=== PATIENT | female | born 1955 ===

== ENCOUNTER 2016-04-17 22:54 | Observation (INO) | payer OTHER ==
[2016-04-17 22:54] VITALS: BMI 34.4
[2016-04-17] MEDS ORDERED: Albuterol-Ipratrop 3 mg / 0.5 (3 ml) UD INH STA ×2 (23:33→23:34)
[2016-04-17] MEDS ORDERED: Albuterol-Ipratrop 3 mg / 0.5 (3 ml) UD ONE ×2 (23:43)
[2016-04-18 00:17] LABS: BASO # 0.1 K/uL (0.0-0.2); BASO % 0.5 % (0.0-2.0); EOS # 0.2 K/uL (0.0-0.7); EOS % 1.4 % (0.0-4.0); HEMATOCRIT 37.3 % (34.0-47.0); LYMPH % 17.2 % (20.0-40.0); MEAN CELL VOLUME 77.6 fL (81.0-99.0); MEAN CORPUSCULAR HGB CONC 33.5 g/dL (33.0-37.0); MEAN PLATELET VOLUME 8.4 fL (7.2-11.7); MONO # 1.2 K/uL (0.0-0.8); MONO % 6.8 % (0.0-10.0); RED CELL DISTRIBUTION WIDTH 16.9 % (11.5-14.5); WHITE BLOOD COUNT 17.2 K/uL (4.8-10.8)
[2016-04-18 00:24] LABS: CHLORIDE 102 mmol/L (98-107)
[2016-04-18 00:25] LABS: POTASSIUM 4.5 mmol/L (3.6-5.2); SODIUM 140 mmol/L (132-148)
[2016-04-18 00:27] LABS: ALKALINE PHOSPHATASE 162 U/L (38-126); ALT/SGPT 21 U/L (9-52); AST/SGOT 16 U/L (14-36); BILIRUBIN,TOTAL 0.5 mg/dL (0.2-1.3); BLOOD UREA NITROGEN 13 mg/dL (7-17); CARBON DIOXIDE 27 mmol/L (22-30); GFR AFRICAN-AMERICAN > 60; GLUCOSE,RANDOM 324 mg/dL (65-105); TOTAL PROTEIN 7.9 g/dL (6.3-8.3)
[2016-04-18] MEDS ORDERED: Moxifloxacin IV 400mg/250ml NS 250 ML IV ONE (00:31)
[2016-04-18] MEDS ORDERED: Albuterol-Ipratrop 3 mg / 0.5 (3 ml) UD INH STA (00:48)
--- NOTE | 2016-04-18 00:48 | C.PDOC ---
History Of Present Illness 60 year old patient, with a past medical history of seizures, pneumonia, COPD/ asthma, CHF, bronchitis, and hypertension, presents to the ED complaining of cough, wheezing and shortness of breath that has been worsening over the past several days. Patient also complains of left side rib pain, and is having increased secrations from her tracheostomy site. She denies fever, abdominal pain, nausea/vomiting. Time Seen by Provider: 04/17/16 23:22 Chief Complaint (Nursing): Cough, Cold, Congestion History Per: Patient History/Exam Limitations: no limitations Onset/Duration Of Symptoms: Days (several days) Current Symptoms Are (Timing): Still Present Context: Other Severity: Moderate Radiation Of Pain To:: None Quality Of Discomfort: "Pain" Alleviating Factors: None Last Bowel Movement: Today Past Medical History Reviewed: Historical Data, Nursing Documentation, Vital Signs Vital Signs: Last Vital Signs Temp 97.8 F 04/22/16 07:35 Pulse 81 04/22/16 07:35 Resp 18 04/22/16 07:35 BP 133/81 04/22/16 09:39 Pulse Ox 95 04/22/16 07:35 - Medical History PMH: Anxiety, Asthma, Bipolar Disorder, Bronchitis, CHF, COPD, Depression, Emphysema, HTN, Pneumonia, Seizures, Sleep Apnea Surgical History: Appendectomy, Cholecystectomy - [facility] Procedures ASSISTANCE WITH RESPIRATORY VENTILATION, <24 HRS, CPAP (03/14/16) CENTRAL VENOUS CATHETER PLACEMENT WITH GUIDANCE (10/24/14) CONTINUOUS INVASIVE MECHANICAL VENTILATION <96 CONSEC HRS (03/07/14) ENTERAL INFUSION OF CONCENTRATED NUT. SUBSTANCES (09/17/12) INSERT ENDOTRACHEAL TUBE (09/17/12) INSERTION OF INFUSION DEV INTO SUP VENA CAVA, PERC APPROACH (12/03/15) INTRODUCE OF OTH THERAP SUBST INTO RESP TRACT, VIA OPENING (05/03/15) NEBULIZER THERAPY (09/17/12) RESPIRATORY VENTILATION, 24-96 CONSECUTIVE HOURS (03/14/16) Family History: States: No Known Family Hx - Social History Hx Tobacco Use: No Hx Alcohol Use: No Hx Substance Use: No - Immunization History Hx Tetanus Toxoid Vaccination: No Hx Influenza Vaccination: No Hx Pneumococcal Vaccination: No Review Of Systems Except As Marked, All Systems Reviewed And Found Negative. Constitutional: Negative for: Fever Respiratory: Positive for: Cough, Shortness of Breath, Wheezing Gastrointestinal: Negative for: Nausea, Vomiting, Abdominal Pain, Diarrhea Skin: Negative for: Rash Physical Exam - Physical Exam Appears: Well, Non-toxic, No Acute Distress Skin: Warm, Dry Head: Normacephalic Eye(s): bilateral: Normal Inspection Nose: Normal Oral Mucosa: Moist Neck: Normal ROM, Supple, Other (tracheostomy site with copious clear secretions ) Chest: Symmetrical, Tenderness (to palpation: left lateral ribs) Cardiovascular: Rhythm Regular Respiratory: No Accessory Muscle Use, No Rales, No Rhonchi, Wheezing ( expiratory bilaterally) Gastrointestinal/Abdominal: Normal Exam, Bowel Sounds, Soft, No Tenderness, No Guarding, No Rebound, Other (morbidly obese) Extremity: Normal ROM, No Pedal Edema Neurological/Psych: Oriented x3 ED Course And Treatment - Laboratory Results Result Diagrams: 04/20/16 07:06 04/20/16 07:06 ECG: Interpreted By Me, Viewed By Me (NSR 98 bpm, normal axis, no acute ST/T wave changes) O2 Sat by Pulse Oximetry: 97 (RA) Pulse Ox Interpretation: Normal - Radiology CXR: Interpreted by Me, Viewed By Me (right sided infiltrate ) Progress Note: Plan: Blood work, CXR ordered and reviewed. Patient given IV solumedrol, duoneb treatments. CXR suspicious for infiltrate - IV avelox ordered. Reevaluation Time: 00:30 Reassessment Condition: Improved (Patient reassessed, wheezing has improved but still present. Patient also continues to have significant secretions from trach site, and CXR concerning for pneumonia. Will admit patient.) - Physician Consult Information Physician Contacted: Celsa Jim Outcome Of Conversation: Discussed patient with Dr. Jim, she agrees with admission for copd exacerbation, dyspnea, possible right sided pneumonia. Medical Decision Making Medical Decision Making: differential diagnoses considered: COPD/asthma exacerbation, pneumonia, bronchitis, SD/ACS, PE, problem with trach tube, CHF exacerbation Disposition - Disposition Disposition: HOSPITALIZED Disposition Time: 00:50 Condition: STABLE - Clinical Impression Clinical Impression: COPD exacerbation, Pneumonia, Dyspnea - Scribe Statement The provider has reviewed the documentation as recorded by the Scribe Maricarmen Garcia Provider Attestation: All medical record entries made by the Scribe were at my direction and personally dictated by me. I have reviewed the chart and agree that the record accurately reflects my personal performance of the history, physical exam, medical decision making, and the department course for this patient. I have also personally directed, reviewed, and agree with the discharge instructions and disposition. Decision To Admit - Pt Status Changed To: Hospital Disposition Of: Inpatient - Admit Certification Admit to Inpatient:: After my assessment, the patient will require hospitalization for at least two midnights. This is because of the severity of symptoms shown, intensity of services needed, and/or the medical risk in this patient being treated as an outpatient. - InPatient: Physician Admission Certification:: see notes - . Bed Request Type: Telemetry Admitting Physician: Celsa Jim Patient Diagnosis: COPD exacerbation, Pneumonia, Dyspnea
[2016-04-18] MEDS ORDERED: Albuterol-Ipratrop 3 mg / 0.5 (3 ml) UD INH PRN (00:55)
[2016-04-18] MEDS ORDERED: Moxifloxacin IV 400mg/250ml NS 250 ML IVPB ONE (00:55)
[2016-04-18] MEDS ORDERED: Albuterol-Ipratrop 3 mg / 0.5 (3 ml) UD ONE (01:00)
[2016-04-18] MEDS ORDERED: guaiFENesin-Codeine 100-10mg/5ml Syrup (10ml) UD PO ONE (08:23)
--- NOTE | 2016-04-18 08:26 | RAD ---
PROCEDURE: CHEST RADIOGRAPH, 1 VIEW HISTORY: INCREASE IN SECRETIONS, R/O PNA COMPARISON: 03/14/2016 FINDINGS: LUNGS: Diffuse prominent increased interstitial lung markings bilaterally suggestive for moderate venous congestion and/or diffuse interstitial infiltrate. Opacity projects over the right lung base, possibly external. Clinical correlation. Biapical pleural thickening with upper lobe granulomatous changes. PLEURA: As above. CARDIOVASCULAR: Cardiomegaly. OSSEOUS STRUCTURES: No significant abnormalities. VISUALIZED UPPER ABDOMEN: Normal. OTHER FINDINGS: None. IMPRESSION: Diffuse prominent increased interstitial lung markings bilaterally suggestive for moderate venous congestion and/or diffuse interstitial infiltrate. Opacity projects over the right lung base, possibly external. Clinical correlation. Biapical pleural thickening with upper lobe granulomatous changes.
[2016-04-18] MEDS: Enoxaparin 40 mg Syringe SC SCH (09:42)
[2016-04-18] MEDS: MethylPREDNISolone 40 mg Vial IVP SCH ×2 (10:37→22:30)
[2016-04-18] MEDS: guaiFENesin-Codeine 100-10mg/5ml Syrup (10ml) UD PO SCH ×3 (10:37→18:51)
[2016-04-18] MEDS: Azithromycin 500 MG in Sodium Chloride 0.9% 250 ML IVPB SCH (12:06)
[2016-04-18] MEDS: (Novolin R) Insulin Human Regular 100 units/ml vial SC SCH ×3 (12:07→22:31)
--- NOTE | 2016-04-18 13:38 | CP.PCM.CON ---
History of Present Illness - History of Present Illness History of Present Illness: 60 year old female with PMHx of emphysema, COPD, CHF, bronchitis, asthma, and hypertension, presents with complaint of SOB. Patient complains of increased secretions, cough, SOB, chills, fever, pain, chest pain, and palpitations. Patient reports she presented to [facility] a week ago and was discharged Sunday without complications. Patient reports she had still not resolved her symptoms, and felt a choking sensation with increased secretions in her trach. Patient is visibly dyspneic. PMHx - see above Review of Systems - Constitutional Constitutional: Chills, Fatigue, Fever - EENT Eyes: Blurred Vision - Cardiovascular Cardiovascular: Chest Pain, Palpitations - Respiratory Respiratory: Cough, Dyspnea, Wheezing - Gastrointestinal Gastrointestinal: Nausea. absent: Diarrhea, Vomiting Past Patient History - Infectious Disease Hx of Infectious Diseases: None - Tetanus Immunizations Tetanus Immunization: Unknown - Past Medical History & Family History Past Medical History?: Yes - Past Social History Smoking Status: Never Smoked - CARDIAC Hx Cardiac Disorders: Yes Hx Congestive Heart Failure: Yes Hx Hypertension: Yes - PULMONARY Hx Respiratory Disorders: Yes Hx Asthma: Yes Hx Bronchitis: Yes Hx Chronic Obstructive Pulmonary Disease (COPD): Yes Hx Emphysema: Yes Hx Pneumonia: Yes Hx Sleep Apnea: Yes - NEUROLOGICAL Hx Neurological Disorder: Yes Hx Seizures: Yes - HEENT Hx HEENT Problems: Yes Hx Cataracts: Yes - RENAL Hx Chronic Kidney Disease: No - ENDOCRINE/METABOLIC Hx Endocrine Disorders: No Hx Hypothyroidism: No - HEMATOLOGICAL/ONCOLOGICAL Hx Blood Disorders: No Hx Human Immunodeficiency Virus (HIV): No - INTEGUMENTARY Hx Dermatological Problems: No - MUSCULOSKELETAL/RHEUMATOLOGICAL Hx Musculoskeletal Disorders: No Hx Falls: No - GASTROINTESTINAL Hx Gastrointestinal Disorders: Yes Other/Comment: cholecystectomy - GENITOURINARY/GYNECOLOGICAL Hx Genitourinary Disorders: No Hx Sexually Transmitted Disorders: No - PSYCHIATRIC Hx Psychophysiologic Disorder: Yes Hx Depression: Yes Hx Substance Use: No - SURGICAL HISTORY Hx Surgeries: Yes Hx Appendectomy: Yes Hx Cholecystectomy: Yes Hx Hysterectomy: Yes - ANESTHESIA Hx Anesthesia: Yes Hx Anesthesia Reactions: No Hx Malignant Hyperthermia: No Meds Allergies/Adverse Reactions: Allergies Allergy/AdvReac Type Severity Reaction Status Date / Time aspirin Allergy ANAPHYLAXIS Verified 04/17/16 23:06 ceftriaxone sodium Allergy ANAPHYLAXIS Verified 04/17/16 23:06 [From Rocephin] ibuprofen [From Motrin] Allergy ANAPHYLAXIS Verified 04/17/16 23:06 iodine Allergy ANAPHYLAXIS Verified 04/17/16 23:06 raspberry Allergy ANAPHYLAXIS Verified 04/17/16 23:06 - Medications Medications: Current Medications Albuterol/Ipratropium (Duoneb 3 Mg/0.5 Mg (3 Ml) Ud) 3 ml INH RQ2 PRN PRN Reason: wheezing, sob Last Admin: 04/18/16 09:00 Dose: 3 ml Albuterol/Ipratropium (Duoneb 3 Mg/0.5 Mg (3 Ml) Ud) 3 ml INH RQ6 [facility] Stop: 04/19/16 02:01 Enoxaparin Sodium (Lovenox) 40 mg SC DAILY [facility] Last Admin: 04/18/16 09:42 Dose: 40 mg Famotidine (Pepcid) 40 mg PO DAILY [facility] Last Admin: 04/18/16 10:32 Dose: 40 mg Furosemide (Lasix) 40 mg PO DAILY [facility] Last Admin: 04/18/16 10:33 Dose: 40 mg Guaifenesin/Codeine Phosphate (Guaifenesin/Codeine) 5 ml PO TID [facility] Last Admin: 04/18/16 13:37 Dose: 5 ml Azithromycin 500 mg/ Sodium (Chloride) 250 mls @ 250 mls/hr IVPB Q24H [facility] Last Admin: 04/18/16 12:06 Dose: 250 mls/hr Ceftriaxone Sodium 1 gm/ (Sodium Chloride) 100 mls @ 100 mls/hr IVPB DAILY [facility] Insulin Glargine (Lantus) 50 unit SC HS [facility] Insulin Human Regular (Novolin R) 0 unit SC ACHS [facility] PRN Reason: Protocol Last Admin: 04/18/16 12:07 Dose: 5 unit Methylprednisolone (Solu-Medrol) 40 mg IVP Q12 [facility] Last Admin: 04/18/16 10:37 Dose: 40 mg Quetiapine Fumarate (Seroquel) 400 mg PO BID [facility] Last Admin: 04/18/16 10:38 Dose: 400 mg Fluticasone/Salmeterol (Advair Diskus 500/50) 1 puff INH RQ12 [facility] Sertraline HCl (Zoloft) 100 mg PO BID [facility] Last Admin: 04/18/16 10:38 Dose: 100 mg Tramadol HCl (Ultram) 50 mg PO TID [facility] Last Admin: 04/18/16 13:33 Dose: 50 mg Physical Exam - Constitutional Appears: No Acute Distress - Head Exam Head Exam: ATRAUMATIC, NORMOCEPHALIC - Eye Exam Eye Exam: Normal appearance - Respiratory Exam Respiratory Exam: Accessory Muscle Use, Rhonchi, Wheezes - Cardiovascular Exam Cardiovascular Exam: +S1, +S2 - Neurological Exam Neurological exam: Alert - Psychiatric Exam Psychiatric exam: Depressed, Normal Affect Results - Vital Signs Recent Vital Signs: Last Vital Signs Temp 98.1 F 04/18/16 07:10 Pulse 91 H 04/18/16 08:00 Resp 20 04/18/16 07:10 BP 135/72 04/18/16 10:33 Pulse Ox 97 04/18/16 07:10 - Labs Result Diagrams: 04/17/16 23:59 04/17/16 23:59 Labs: Laboratory Results - last 24 hr 04/18/16 11:22 POC Glucose (mg/dL) 377 H Assessment & Plan (1) COPD exacerbation Assessment and Plan: Continue nebs, steroids F/u X-ray to track improvement Status: Acute
[2016-04-18] MEDS: Albuterol-Ipratrop 3 mg / 0.5 (3 ml) UD INH SCH ×2 (14:20→19:52)
[2016-04-18] MEDS ORDERED: (Lantus) Insulin Glargine, Recombinant SC SCH (22:00)
[2016-04-19] MEDS: Albuterol-Ipratrop 3 mg / 0.5 (3 ml) UD INH SCH (01:15)
[2016-04-19] MEDS ORDERED: (Novolog) Insulin Aspart, Recombinant 100 u/ml 10 ml vial SC STA (02:56)
[2016-04-19] MEDS ORDERED: (Novolin R) Insulin Human Regular 100 units/ml vial IV ONE (03:21)
[2016-04-19] MEDS ORDERED: (Novolin R) Insulin Human Regular 100 units/ml vial SC ONE (03:29)
[2016-04-19] MEDS: (Novolin R) Insulin Human Regular 100 units/ml vial SC SCH ×4 (07:49→21:49)
--- NOTE | 2016-04-19 09:25 | HP ---
CHIEF COMPLAINT: Coughing, shortness of breath. HISTORY OF PRESENT ILLNESS: The patient is a 60-year-old lady, new for me with past medical history of emphysema, pneumonia, COPD, congestive heart failure, bronchitis, asthma, hypertension, has trach. Came to the Emergency Room complaining of cough, wheezing and shortness of breath that has been wor se for the past several days. The patient also complaining of left-sided rib pain and has a large am ount of secretions from the trach. The patient denies fever, vomiting, chills, diarrhea. PAST MEDICAL HISTORY: Anxiety, asthma, bipolar, bronchitis, congestive heart failure, COPD, depressi on, emphysema, hypertension, pneumonia, seizures, sleep apnea. PAST SURGICAL HISTORY: Appendectomy, cholecystectomy. FAMILY HISTORY: Unknown. SOCIAL HISTORY: History of tobacco use, no alcohol use, no substance abuse. ALLERGIES: THE PATIENT IS ALLERGIC WITH ASPIRIN, CEFTRIAXONE, IBUPROFEN, IODINE, RASPBERRY. HOME MEDICATIONS: Reviewed by me. REVIEW OF SYSTEMS: The patient seen and examined on the bedside in her room, looks comfortable. Cou gh is a little bit better. Shortness of breath is a little bit better and was breathing with her tra ch tube, getting constant oxygen. No headache, no fever, no chills, no hematuria, no hematochezia. PHYSICAL EXAMINATION: VITAL SIGNS: Temperature 98.2, pulse 97, blood pressure 133/64, respiratory rate 20. HEENT: Head normocephalic and atraumatic. Eyes: PERRLA. Extraocular muscles intact. Conjunctivae clear. Eyelids unremarkable. Nose patent. Mucous membranes moist. NECK: Has trach, through which patient is getting oxygen. No thyromegaly, no JVD. LUNGS: Wheezing bilaterally mildly. HEART: S1, S2 positive. ABDOMEN: Soft. Bowel sounds positive. No organomegaly. EXTREMITIES: No edema, no cyanosis. NEUROLOGIC: The patient is awake, alert, moving all 4 extremities. No focal deficits. LABORATORIES: White blood cells 17.2, hemoglobin 12.5, hematocrit 37.5, platelets 171. Sodium 140, potassium 4.5, BUN 13, creatinine 0.9. Glucose 377, 378. Alkaline phosphatase 154. Influenza type A and B is negative. ASSESSMENT AND PLAN: The patient is a 60-year-old lady with leukocytosis, hyperglycemia, history of chronic obstructive pulmonary disease, asthma, emphysema, seizures, obesity, congestive heart failure , bronchitis, hypertension. Seen by the grad intern, Dr. Rodo Rosado. Uncontrolled diabetes yeison litus, has chronic obstructive pulmonary disease exacerbation. Continue nebulizer, steroids. Follow up x-ray to track improvement. Discussion done with patient. Giving nebulizer treatment. Gastroint estinal and deep venous thrombosis prophylaxis. Repeat labs. We will follow up. Celsa Jim MD cc: [id number] TT: 04/19/2016 09:25:06 en
[2016-04-19] MEDS: Enoxaparin 40 mg Syringe SC SCH (09:27)
[2016-04-19] MEDS: MethylPREDNISolone 40 mg Vial IVP SCH ×2 (09:28→21:47)
[2016-04-19] MEDS: guaiFENesin-Codeine 100-10mg/5ml Syrup (10ml) UD PO SCH ×3 (09:28→18:31)
[2016-04-19] MEDS: Oxycodone/Acetaminophen 5/325 mg Tab PO PRN ×2 (09:29→16:06)
--- NOTE | 2016-04-19 10:13 | PCM.PSYCH ---
Initial Psychiatric Evaluation - Initial Psychiatric Evaluation Type of Admission: Voluntary Legal Status: Capacity History of Present Illness and Precipitating Events: Pt is a 60 year old female, , has three children, unemployed, currently living with her daughter in an apartment. Pt has an extensive medical psychiatric history who was admitted for fever and worsening shortness of breath. Pt has multiple medical problems including asthma, CHF, COPD, HTN, seizures, sleep apnea, and trach for breathing after multiple intubations. Pt has a psychiatric history of schizophrenia, bipolar disorder, depression, and anxiety with around 10 psychiatric admission. Pt was admitted for SOB and fever. Pt also reports feeling "bad," specifically depressed and anxious, because she has a tracheotomy tube and her health is poor. She is constantly concerned and worried about what other people think of her when they see her with the breathing tube. She also believes that people think they will get ill by being around her. Pt is very frustrated by her illnesses because she cannot do the things she used to and need helps with ADLs. Pt states she feel helpless, hopeless, worthless, and a burden to her family. Pt reports suicidal ideation without a plan and has had suicide attempts in the past, once by attempting to overdose on a pill cocktail. Pt reports hearing multiple voices telling her " you are bad," "you are a problem," you make your daughter sad," "it's better to ." Pt occasionally hears music she listen too from 20 years ago. Pt also reports visual hallucinations of shadows in her house and persecutory delusions of the doctors and nurses wanting to kill her; this makes her anxious. She also hears the nurses call her "Mrs. Bhakta." Pt reports poor sleep, good appetie, decreased energy, poor concentration, psychomotor retardation, and guilt over being such a burden to her family. Social: Tobacco - denies; ETOH - denies, Drugs- denies; lives at home with daughter Psych Hx: multiple suicide attempts, schizophrenia, bipolar, Family psych Hx: Oldest daughter - Bipolar Family subsance use - oldest daughter hx of snorting unknown drugs (now clean) PMHx: as above Psych meds: Trazodone, Seroquel, Lamictal, Ativan Current Medications: Active Medications Generic Name Dose Route Start Last Admin Trade Name Freq PRN Reason Stop Dose Admin Albuterol/Ipratropium 3 ml 04/18/16 16:35 Duoneb 3 Mg/0.5 Mg (3 Ml) Ud INH RQ4 PRN wheezing, sob Enoxaparin Sodium 40 mg 04/18/16 10:00 04/19/16 09:27 Lovenox SC 40 mg DAILY [facility] Administration Famotidine 40 mg 04/18/16 10:00 04/19/16 09:28 Pepcid PO 40 mg DAILY [facility] Administration Furosemide 40 mg 04/18/16 10:00 04/19/16 09:32 Lasix PO 40 mg DAILY [facility] Administration Guaifenesin/Codeine Phosphate 5 ml 04/18/16 10:00 04/19/16 09:28 Guaifenesin/Codeine PO 5 ml TID [facility] Administration Azithromycin 500 mg/ Sodium 250 mls @ 250 mls/hr 04/18/16 11:00 04/18/16 12:06 Chloride IVPB 250 mls/hr Q24H [facility] Administration Insulin Glargine 17 unit 04/20/16 10:00 Lantus SC DAILY [facility] Insulin Glargine 30 unit 04/19/16 22:00 Lantus SC HS [facility] Insulin Human Regular 0 unit 04/18/16 11:30 04/19/16 07:49 Novolin R SC 5 unit ACHS [facility] Administration Protocol Methylprednisolone 40 mg 04/18/16 10:00 04/19/16 09:28 Solu-Medrol IVP 40 mg Q12 [facility] Administration Oxycodone/Acetaminophen 1 tab 04/19/16 08:21 04/19/16 09:29 Percocet 5/325 Mg Tab PO 04/22/16 08:22 1 tab BID PRN Administration pain Quetiapine Fumarate 400 mg 04/18/16 10:00 04/19/16 09:29 Seroquel PO 400 mg BID [facility] Administration Fluticasone/Salmeterol 1 puff 04/18/16 20:00 Advair Diskus 500/50 INH RQ12 [facility] Sertraline HCl 100 mg 04/18/16 10:00 04/19/16 09:28 Zoloft PO 100 mg BID [facility] Administration Past Psychiatric History - Past Psychiatric History Previous Treatment History: Inpatient Pertinent Medical Hx (Current Medical&Sleep Prob, Allergies): Allergies Allergy/AdvReac Type Severity Reaction Status Date / Time aspirin Allergy ANAPHYLAXIS Verified 04/17/16 23:06 ceftriaxone sodium Allergy ANAPHYLAXIS Verified 04/17/16 23:06 [From Rocephin] ibuprofen [From Motrin] Allergy ANAPHYLAXIS Verified 04/17/16 23:06 iodine Allergy ANAPHYLAXIS Verified 04/17/16 23:06 raspberry Allergy ANAPHYLAXIS Verified 04/17/16 23:06 Insulin Aspart, Recombinant [Novolog] 9 unit SC TIDAC 30 Days 03/19/16 QUEtiapine [SEROquel] 400 mg PO BID tab 03/19/16 Sertraline [Zoloft] 100 mg PO BID tab 03/19/16 Budesonide [Pulmicort Respules] 0.5 mg IH Q12 04/18/16 Gabapentin [Neurontin] 800 mg PO TID 04/18/16 Insulin Glargine, Recombina [Lantus] 17 unit SC ACB 04/18/16 Insulin Glargine, Recombina [Lantus] 30 unit SC HS 04/18/16 Ipratropium 0.02% [Ipratropium [place] 2.5 Ml] 0.5 mg IH Q4 PRN 04/18/16 lamoTRIgine [LaMICtal] 100 mg PO BID 04/18/16 Review of Systems - Review of Systems All systems: reviewed and no additional remarkable complaints except
--- NOTE | 2016-04-19 10:34 | CP.PCM.PN ---
Subjective - Date & Time of Evaluation Date of Evaluation: 04/19/16 Time of Evaluation: 09:00 - Subjective Subjective: Patient is seen and examined. Patient reports she had an inability to sleep at night due to pain and cough. Patient appears visibly dyspneic and in respiratory distress. Patient reports cough, SOB, increased secretions, chest pain, back pain, palpitations, diaphoresis, chills, headache, itchy eyes, and nausea. She reports her pain is uncontrolled. Objective - Vital Signs/Intake and Output Vital Signs (last 24 hours): Temp Pulse Resp BP Pulse Ox 98.5 F 79 18 114/69 95 04/19/16 07:20 04/19/16 08:00 04/19/16 07:20 04/19/16 09:32 04/19/16 07:20 Intake and Output: 04/19/16 04/19/16 06:59 18:59 Intake Total 120 Balance 120 - Medications Medications: Current Medications Albuterol/Ipratropium (Duoneb 3 Mg/0.5 Mg (3 Ml) Ud) 3 ml INH RQ4 PRN PRN Reason: wheezing, sob Enoxaparin Sodium (Lovenox) 40 mg SC DAILY [facility] Last Admin: 04/19/16 09:27 Dose: 40 mg Famotidine (Pepcid) 40 mg PO DAILY [facility] Last Admin: 04/19/16 09:28 Dose: 40 mg Furosemide (Lasix) 40 mg PO DAILY [facility] Last Admin: 04/19/16 09:32 Dose: 40 mg Guaifenesin/Codeine Phosphate (Guaifenesin/Codeine) 5 ml PO TID [facility] Last Admin: 04/19/16 09:28 Dose: 5 ml Azithromycin 500 mg/ Sodium (Chloride) 250 mls @ 250 mls/hr IVPB Q24H [facility] Last Admin: 04/18/16 12:06 Dose: 250 mls/hr Insulin Glargine (Lantus) 17 unit SC DAILY [facility] Insulin Glargine (Lantus) 30 unit SC HS [facility] Insulin Human Regular (Novolin R) 0 unit SC ACHS [facility] PRN Reason: Protocol Last Admin: 04/19/16 07:49 Dose: 5 unit Methylprednisolone (Solu-Medrol) 40 mg IVP Q12 [facility] Last Admin: 04/19/16 09:28 Dose: 40 mg Oxycodone/Acetaminophen (Percocet 5/325 Mg Tab) 1 tab PO BID PRN PRN Reason: pain Stop: 04/22/16 08:22 Last Admin: 04/19/16 09:29 Dose: 1 tab Quetiapine Fumarate (Seroquel) 400 mg PO BID [facility] Last Admin: 04/19/16 09:29 Dose: 400 mg Fluticasone/Salmeterol (Advair Diskus 500/50) 1 puff INH RQ12 [facility] Sertraline HCl (Zoloft) 100 mg PO BID [facility] Last Admin: 04/19/16 09:28 Dose: 100 mg - Constitutional Appears: Chronically Ill - Head Exam Head Exam: ATRAUMATIC, NORMOCEPHALIC - Eye Exam Eye Exam: Normal appearance - Respiratory Exam Respiratory Exam: Rhonchi (diffuse rhonchi), Wheezes - Cardiovascular Exam Cardiovascular Exam: +S1, +S2 - Neurological Exam Neurological Exam: Alert, Awake - Psychiatric Exam Psychiatric exam: Anxious, Depressed Assessment and Plan (1) COPD exacerbation Assessment & Plan: Continue Abx, bronchodilators, steroids, oxygen therapy Consider addition of mucolytic to aid in secretion removal Status: Acute
[2016-04-19] MEDS: Azithromycin 500 MG in Sodium Chloride 0.9% 250 ML IVPB SCH (11:00)
--- NOTE | 2016-04-19 13:59 | PCM.PSYCH ---
Initial Psychiatric Evaluation - Initial Psychiatric Evaluation Type of Admission: Voluntary Legal Status: Capacity Chief Complaint (in patient's own words): "I am depressed and anxious." History of Present Illness and Precipitating Events: Pt is a 60 year old female, , has three children, unemployed, currently living with her daughter in an apartment. Pt has an extensive medical psychiatric history who was admitted for fever and worsening shortness of breath. Pt has multiple medical problems including asthma, CHF, COPD, HTN, seizures, sleep apnea, and trach for breathing after multiple intubations. Pt has a psychiatric history of schizophrenia, bipolar disorder, depression, and anxiety with around 10 psychiatric admission. Pt was admitted for SOB and fever. Pt also reports feeling "bad," specifically depressed and anxious, because she has a trach and her health is poor. She is constantly concerned and worried about what other people think of her when they see her with the breathing tube. She also believes that people think they will get ill by being around her. Pt is very frustrated by her illnesses because she cannot do the things she used to and need helps with ADLs. Pt states she feel helpless, hopeless, worthless, and a burden to her family. Pt reports suicidal ideation without a plan and has had suicide attempts in the past, once by attempting to overdose on a pill cocktail. Pt reports hearing multiple voices telling her "you are bad," "you are a problem," you make your daughter sad," "it's better to ." Pt occasionally hears music she listen too from 20 years ago. Pt also reports visual hallucinations of shadows in her house and persecutory delusions of the doctors and nurses wanting to kill her; this makes her anxious. She also hears the nurses call her "Mrs. Bhakta." Pt reports poor sleep, good appetie, decreased energy, poor concentration, psychomotor retardation, and guilt over being such a burden to her family. Social: Tobacco - denies; ETOH - denies, Drugs- denies; lives at home with daughter Psych Hx: multiple suicide attempts, schizophrenia, bipolar, depression, anxiety Family psych Hx: Oldest daughter - Bipolar Family subsance use - oldest daughter hx of snorting unknown drugs (now clean) PMHx: as above Psych meds: Trazodone, Seroquel, Lamictal, Ativan Current Medications: Active Medications Generic Name Dose Route Start Last Admin Trade Name Freq PRN Reason Stop Dose Admin Albuterol/Ipratropium 3 ml 04/18/16 16:35 Duoneb 3 Mg/0.5 Mg (3 Ml) Ud INH RQ4 PRN wheezing, sob Enoxaparin Sodium 40 mg 04/18/16 10:00 04/19/16 09:27 Lovenox SC 40 mg DAILY [facility] Administration Famotidine 40 mg 04/18/16 10:00 04/19/16 09:28 Pepcid PO 40 mg DAILY [facility] Administration Furosemide 40 mg 04/18/16 10:00 04/19/16 09:32 Lasix PO 40 mg DAILY [facility] Administration Guaifenesin/Codeine Phosphate 5 ml 04/18/16 10:00 04/19/16 13:33 Guaifenesin/Codeine PO 5 ml TID [facility] Administration Azithromycin 500 mg/ Sodium 250 mls @ 250 mls/hr 04/18/16 11:00 04/19/16 11:00 Chloride IVPB 250 mls/hr Q24H [facility] Administration Insulin Glargine 17 unit 04/20/16 10:00 Lantus SC DAILY [facility] Insulin Glargine 30 unit 04/19/16 22:00 Lantus SC HS [facility] Insulin Human Regular 0 unit 04/18/16 11:30 04/19/16 12:10 Novolin R SC 4 unit ACHS [facility] Administration Protocol Methylprednisolone 40 mg 04/18/16 10:00 04/19/16 09:28 Solu-Medrol IVP 40 mg Q12 [facility] Administration Oxycodone/Acetaminophen 1 tab 04/19/16 08:21 04/19/16 09:29 Percocet 5/325 Mg Tab PO 04/22/16 08:22 1 tab BID PRN Administration pain Quetiapine Fumarate 400 mg 04/18/16 10:00 04/19/16 09:29 Seroquel PO 400 mg BID [facility] Administration Fluticasone/Salmeterol 1 puff 04/18/16 20:00 Advair Diskus 500/50 INH RQ12 [facility] Sertraline HCl 100 mg 04/18/16 10:00 04/19/16 09:28 Zoloft PO 100 mg BID [facility] Administration Past Psychiatric History - Past Psychiatric History Pertinent Medical Hx (Current Medical&Sleep Prob, Allergies): Allergies Allergy/AdvReac Type Severity Reaction Status Date / Time aspirin Allergy ANAPHYLAXIS Verified 04/17/16 23:06 ceftriaxone sodium Allergy ANAPHYLAXIS Verified 04/17/16 23:06 [From Rocephin] ibuprofen [From Motrin] Allergy ANAPHYLAXIS Verified 04/17/16 23:06 iodine Allergy ANAPHYLAXIS Verified 04/17/16 23:06 raspberry Allergy ANAPHYLAXIS Verified 04/17/16 23:06 Insulin Aspart, Recombinant [Novolog] 9 unit SC TIDAC 30 Days 03/19/16 QUEtiapine [SEROquel] 400 mg PO BID tab 03/19/16 Sertraline [Zoloft] 100 mg PO BID tab 03/19/16 Budesonide [Pulmicort Respules] 0.5 mg IH Q12 04/18/16 Gabapentin [Neurontin] 800 mg PO TID 04/18/16 Insulin Glargine, Recombina [Lantus] 17 unit SC ACB 04/18/16 Insulin Glargine, Recombina [Lantus] 30 unit SC HS 04/18/16 Ipratropium 0.02% [Ipratropium [place] 2.5 Ml] 0.5 mg IH Q4 PRN 04/18/16 lamoTRIgine [LaMICtal] 100 mg PO BID 04/18/16 Review of Systems - Review of Systems All systems: reviewed and no additional remarkable complaints except - Respiratory Respiratory: Dyspnea - Neurological Neurological: Headaches. absent: Dizziness, Paresthesias - Psychiatric Psychiatric: Abnormal Sleep Pattern, Anhedonia, Anxiety, Auditory Hallucinations , Depression, Difficulty Concentrating, Hallucinations, Hopelessness, Panic Attacks, Paranoia, Suicidal Ideation, Visual Hallucinations. absent: Behavioral Changes, Change in Appetite, Confusion, Homicidal Ideation, Irritability, Memory Loss, Mood Swings, Tactile Hallucinations Mental Status Examination - Personal Presentation Personal Presentation: Looks stated age - Affect Affect: Blunted, Depressed - Motor Activity Motor Activity: Psychomotor Retardation - Reliability in Providing Information Reliability in Providing Information: Fair - Speech Speech: Organized, Coherent Additional comments: pt has difficulty speaking due to tracheal breathing tube - Mood Mood: Depressed - Formal Thought Process Formal Thought Process: Hallucinations, Delusions, Paranoia, Loosening of associations - Hallucinations/Delusions Hallucinations: Visual, Auditory - Obsessions/Compulsions Obsessions: No Compulsions: No - Cognitive Functions Orientation: Person, Place, Situation, Time Sensorium: Alert Attention/Concentration: Attentive Abstract Thinking: [place] Estimate of Intelligence: Average Judgement: Intact, as evidence by: Insight regarding need for hospitalization Memory: Recent intact, as evidence by: Ability to recall events of the day, Remote intact, as evidenced by: Abilit to recall sig. life events - Risk Risk: Suicidal, Diminished functioning - Strength & Assets Inventory Strength & Assets Inventory: Family support, Cooperative DSM 5 DX - DSM 5 DSM 5 Diagnosis: Schizoaffective disorder, severe, recurrent - Recommended/Plan of Treatment Treatment Recommendations and Plan of Treatment: Schizoaffective disorder, severe, recurrent - CBT - Psychoeducation - Supportive therapy - Quetiapine 400 mg PO BID - Sertraline 100 mg PO BID Projected ELOS: undetermined Prognosis: Good with treatment Discharge Plan and Discharge Criteria: - Improvement in mood and no suicidal ideation - Stable vitals and A&Ox3 - Smoking Cessation Smoking Cessation Initiated: No Reason for not providing: Non smoker
--- NOTE | 2016-04-19 18:16 | CARD ---
APPROVED REPORT EKG Measurement Heart [id number] <Conclusion> Normal sinus rhythm Normal ECG
[2016-04-19] MEDS: Albuterol-Ipratrop 3 mg / 0.5 (3 ml) UD INH PRN (19:43)
[2016-04-19] MEDS: Fluticasone-Salmeterol 500-50mcg Diskus INH SCH (19:44)
[2016-04-19] MEDS: (Lantus) Insulin Glargine, Recombinant SC SCH (21:32)
[2016-04-20] MEDS: Albuterol-Ipratrop 3 mg / 0.5 (3 ml) UD INH PRN ×4 (01:15→19:51)
[2016-04-20] MEDS: Acetylcysteine 20% Inhal Soln (4ml) INH SCH ×3 (01:15→13:36)
--- NOTE | 2016-04-20 02:27 | PN ---
DATE: 04/19/2016 SUBJECTIVE: The patient was seen and examined on the bedside, complaining of cough and shortness of breath. No nausea, vomiting, or diarrhea. No fever, no chills. PHYSICAL EXAMINATION: VITAL SIGNS: Temperature 98.7, pulse 76, blood pressure 141/76, respiratory rate 22. HEAD: Normocephalic and atraumatic. EYES: PERRLA. Extraocular movements intact. Conjunctivae pink. Eyelids unremarkable. Nose is patent. NECK: Supple. No carotid bruit, JVD or thyromegaly. CHEST: Bilaterally symmetrical. HEART: S1, S2 positive. LUNGS: Clear to auscultation. ABDOMEN: Soft. Bowel sounds positive. No organomegaly. EXTREMITIES: No edema, no cyanosis. NEUROLOGIC: The patient is awake, alert, moving all 4 extremities. No focal deficit. MEDICATIONS: Advair, azithromycin, Lantus, Lasix, Lovenox, Novolin, Pepcid, Percocet, Seroquel, Solu-Medrol, Zoloft. LABORATORY DATA: White blood cells 17.2, hemoglobin 12.5, hematocrit 37.3, platelets 171. Glucose 206, 242, 327, 381. ASSESSMENT AND PLAN: The patient is a 60-year-old lady who has chronic obstructive pulmonary disease exacerbation. Lathe Puller is on the case. According to Dr. Rosado, continue antibiotics, bronchodilators and steroids, oxygen therapy, The patient was seen by Dr. Sade Nunes, psychiatrist to fix the psych medications. The patient has extensive medical psych history. The patient has history of schizophrenia, bipolar, depression and anxiety. The patient has trach, multiple time intubations, history of appendectomy, cholecystectomy, obesity, rule out obstructive sleep apnea syndrome, emphysema, seizure, obesity, congestive heart failure. Sugar is not very well controlled, called consult with case operator, Dr. Nemesio Don, continue tapering doses of nebulizer. Gastrointestinal and deep venous thrombosis prophylaxis. Repeat labs. We will follow up. Celsa Jim MD cc: [id number] TT: 04/20/2016 02:25:57 Confirmation # [id number] Dictation # [id number] JUDY
[2016-04-20] MEDS: Oxycodone/Acetaminophen 5/325 mg Tab PO PRN ×2 (06:55→17:00)
[2016-04-20 07:15] LABS: HEMATOCRIT 39.2 % (34.0-47.0); MEAN CORPUSCULAR HEMOGLOBIN 25.5 pg (27.0-31.0); MEAN CORPUSCULAR HGB CONC 32.8 g/dL (33.0-37.0); MEAN PLATELET VOLUME 8.5 fL (7.2-11.7); RED CELL DISTRIBUTION WIDTH 16.6 % (11.5-14.5); WHITE BLOOD COUNT 14.5 K/uL (4.8-10.8)
[2016-04-20 07:31] LABS: CHLORIDE 90 mmol/L (98-107); SODIUM 140 mmol/L (132-148)
[2016-04-20 07:32] LABS: POTASSIUM 4.3 mmol/L (3.6-5.2)
[2016-04-20 07:34] LABS: GFR AFRICAN-AMERICAN > 60
[2016-04-20 07:35] LABS: BLOOD UREA NITROGEN 25 mg/dL (7-17); CALCIUM 9.1 mg/dl (8.6-10.4); CARBON DIOXIDE 35 mmol/L (22-30); GLUCOSE,RANDOM 324 mg/dL (65-105)
[2016-04-20] MEDS: (Novolin R) Insulin Human Regular 100 units/ml vial SC SCH ×4 (08:05→21:17)
[2016-04-20] MEDS: Fluticasone-Salmeterol 500-50mcg Diskus INH SCH (08:18)
--- NOTE | 2016-04-20 09:46 | CP.PCM.PN ---
Subjective - Date & Time of Evaluation Date of Evaluation: 04/20/16 Time of Evaluation: 09:35 - Subjective Subjective: Patient is seen and examined. Nurse reports patient complained during the night of generalized itching treated with benadryl. Patient confirms nurse report stating she did not sleep well due to it. Patient has apparent erythema on the neck and cheeks and complains of itchiness in that area. Patient also reports her pain remains uncontrolled. She also complains of secretions that are unable to be removed. Patient further complains of SOB, cough, congestion, chest pain, fever, and nausea. Objective - Vital Signs/Intake and Output Vital Signs (last 24 hours): Temp Pulse Resp BP Pulse Ox 98.7 F 68 20 124/86 98 04/20/16 08:50 04/20/16 08:50 04/20/16 08:50 04/20/16 08:50 04/20/16 08:50 Intake and Output: 04/20/16 04/20/16 06:59 18:59 Intake Total 120 Balance 120 - Medications Medications: Current Medications Acetylcysteine (Acetylcysteine 20%) 4 ml INH RQ6 [facility] Last Admin: 04/20/16 08:17 Dose: 4 ml Albuterol/Ipratropium (Duoneb 3 Mg/0.5 Mg (3 Ml) Ud) 3 ml INH RQ4 PRN PRN Reason: wheezing, sob Last Admin: 04/20/16 08:17 Dose: 3 ml Enoxaparin Sodium (Lovenox) 40 mg SC DAILY [facility] Last Admin: 04/19/16 09:27 Dose: 40 mg Famotidine (Pepcid) 40 mg PO DAILY [facility] Last Admin: 04/19/16 09:28 Dose: 40 mg Furosemide (Lasix) 40 mg PO DAILY [facility] Last Admin: 04/19/16 09:32 Dose: 40 mg Guaifenesin/Codeine Phosphate (Guaifenesin/Codeine) 5 ml PO TID [facility] Last Admin: 04/19/16 18:31 Dose: 5 ml Azithromycin 500 mg/ Sodium (Chloride) 250 mls @ 250 mls/hr IVPB Q24H [facility] Last Admin: 04/19/16 11:00 Dose: 250 mls/hr Insulin Glargine (Lantus) 17 unit SC DAILY [facility] Insulin Glargine (Lantus) 30 unit SC HS [facility] Last Admin: 04/19/16 21:32 Dose: 30 unit Insulin Human Regular (Novolin R) 0 unit SC ACHS [facility] PRN Reason: Protocol Last Admin: 04/20/16 08:05 Dose: 3 unit Methylprednisolone (Solu-Medrol) 40 mg IVP Q12 [facility] Last Admin: 04/19/16 21:47 Dose: 40 mg Oxycodone/Acetaminophen (Percocet 5/325 Mg Tab) 1 tab PO BID PRN PRN Reason: pain Stop: 04/22/16 08:22 Last Admin: 04/20/16 06:55 Dose: 1 tab Quetiapine Fumarate (Seroquel) 400 mg PO BID [facility] Last Admin: 04/19/16 18:30 Dose: 400 mg Fluticasone/Salmeterol (Advair Diskus 500/50) 1 puff INH RQ12 [facility] Last Admin: 04/20/16 08:18 Dose: Not Given Sertraline HCl (Zoloft) 100 mg PO BID [facility] Last Admin: 04/19/16 18:30 Dose: 100 mg - Labs Labs: 04/20/16 07:06 04/20/16 07:06 - Constitutional Appears: No Acute Distress - Head Exam Head Exam: ATRAUMATIC, NORMOCEPHALIC - Eye Exam Eye Exam: Normal appearance - Respiratory Exam Respiratory Exam: Accessory Muscle Use, Rhonchi (Diffuse rhonchi throughout lung perez), Wheezes - Cardiovascular Exam Cardiovascular Exam: +S1, +S2 - Neurological Exam Neurological Exam: Alert, Awake - Psychiatric Exam Psychiatric exam: Anxious, Depressed - Skin Skin Exam: Erythema (along neck and cheeks) Assessment and Plan (1) COPD exacerbation Assessment & Plan: Continue steroids, nebs, oxygen, mucolytic D/C advair diskus and Guaifenesin with codeine Begin Phenergan with codeine for cough Follow up CXR to determine effectiveness of treatment Status: Acute
[2016-04-20] MEDS: guaiFENesin-Codeine 100-10mg/5ml Syrup (10ml) UD PO SCH (09:53)
[2016-04-20] MEDS: Enoxaparin 40 mg Syringe SC SCH (09:55)
[2016-04-20] MEDS: (Lantus) Insulin Glargine, Recombinant SC SCH ×2 (09:55→21:39)
[2016-04-20] MEDS: MethylPREDNISolone 40 mg Vial IVP SCH ×2 (09:57→21:35)
[2016-04-20] MEDS: Azithromycin 500 MG in Sodium Chloride 0.9% 250 ML IVPB SCH (10:01)
[2016-04-20] MEDS ORDERED: Promethazine/Cod 6.25mg-10mg/5ml Syr UD PO PRN (10:52)
--- NOTE | 2016-04-20 15:03 | PCM.PYCHPN ---
Psychiatric Progress Note - Psychiatric Progress Note Patient seen today, length of contact: 15 min Patient Chief Complaint: "I am still feeling depressed." Problems Identified/Issues Discussed: Patient seen and evaluated, chart reviewed and discussed with the nurse. She reports a bit improvement in her depression and anxiety. She still reports paranoia and persecutory delusions. However, denies any suicidal ideation or homicidal ideation. She is taking medications and denies any side effects. Supportive therapy and psychoeducation were given. Medication Change: Yes (d/c Seroquel, Start Haldol) Medical Record Reviewed: Yes Mental Status Examination - Cognitive Function Orientation: Person, Place, Situation, Time Memory: Intact Attention: Poor Concentration: WNL Association: Loose Fund of Knowledge: WNL - Mood Mood: Depressed - Affect Affect: Blunted, Depressed - Speech Speech: Soft - Formal Thought Process Formal Thought Process: Hallucinations, Delusions, Paranoia, Loosening of associations - Suicidal Ideation Suicidal Ideation: No - Homicidal Ideation Homicidal Ideation: No Goal/Treatment Plan - Goal/Treatment Plan Need for Continued Stay: Severe depression anxiety Progress Toward Problem(s) and Goals/Treatment Plan: Schizoaffective disorder, severe, recurrent - CBT - Psychoeducation - Supportive therapy - D/C Quetiapine 400 mg PO BID - Increase Sertraline 200 mg PO daily - Start Haldol 5 mg PO BID - Smoking Cessation Smoking Cessation Initiated: No
--- NOTE | 2016-04-20 20:07 | CP.PCM.CON ---
History of Present Illness - History of Present Illness History of Present Illness: uncontrolled IDDM Past Patient History - Infectious Disease Hx of Infectious Diseases: None - Tetanus Immunizations Tetanus Immunization: Unknown - Past Medical History & Family History Past Medical History?: Yes - Past Social History Smoking Status: Never Smoked - CARDIAC Hx Cardiac Disorders: Yes Hx Congestive Heart Failure: Yes Hx Hypertension: Yes - PULMONARY Hx Respiratory Disorders: Yes Hx Asthma: Yes Hx Bronchitis: Yes Hx Chronic Obstructive Pulmonary Disease (COPD): Yes Hx Emphysema: Yes Hx Pneumonia: Yes Hx Sleep Apnea: Yes - NEUROLOGICAL Hx Neurological Disorder: Yes Hx Seizures: Yes - HEENT Hx HEENT Problems: Yes Hx Cataracts: Yes - RENAL Hx Chronic Kidney Disease: No - ENDOCRINE/METABOLIC Hx Endocrine Disorders: No Hx Hypothyroidism: No - HEMATOLOGICAL/ONCOLOGICAL Hx Blood Disorders: No Hx Human Immunodeficiency Virus (HIV): No - INTEGUMENTARY Hx Dermatological Problems: No - MUSCULOSKELETAL/RHEUMATOLOGICAL Hx Musculoskeletal Disorders: No Hx Falls: No - GASTROINTESTINAL Hx Gastrointestinal Disorders: Yes Other/Comment: cholecystectomy - GENITOURINARY/GYNECOLOGICAL Hx Genitourinary Disorders: No Hx Sexually Transmitted Disorders: No - PSYCHIATRIC Hx Psychophysiologic Disorder: Yes Hx Depression: Yes Hx Substance Use: No - SURGICAL HISTORY Hx Surgeries: Yes Hx Appendectomy: Yes Hx Cholecystectomy: Yes Hx Hysterectomy: Yes - ANESTHESIA Hx Anesthesia: Yes Hx Anesthesia Reactions: No Hx Malignant Hyperthermia: No Meds Allergies/Adverse Reactions: Allergies Allergy/AdvReac Type Severity Reaction Status Date / Time aspirin Allergy ANAPHYLAXIS Verified 04/17/16 23:06 ceftriaxone sodium Allergy ANAPHYLAXIS Verified 04/17/16 23:06 [From Rocephin] ibuprofen [From Motrin] Allergy ANAPHYLAXIS Verified 04/17/16 23:06 iodine Allergy ANAPHYLAXIS Verified 04/17/16 23:06 raspberry Allergy ANAPHYLAXIS Verified 04/17/16 23:06 - Medications Medications: Current Medications Acetylcysteine (Acetylcysteine 20%) 4 ml INH RQ6 [facility] Last Admin: 04/20/16 13:36 Dose: 4 ml Albuterol/Ipratropium (Duoneb 3 Mg/0.5 Mg (3 Ml) Ud) 3 ml INH RQ4 PRN PRN Reason: wheezing, sob Last Admin: 04/20/16 19:51 Dose: 3 ml Benztropine Mesylate (Cogentin) 1 mg PO Q6 PRN PRN Reason: EXTRAPYRAMIDAL SYMPTOMS Enoxaparin Sodium (Lovenox) 40 mg SC DAILY [facility] Last Admin: 04/20/16 09:55 Dose: 40 mg Famotidine (Pepcid) 40 mg PO DAILY [facility] Last Admin: 04/20/16 09:55 Dose: 40 mg Furosemide (Lasix) 40 mg PO DAILY [facility] Last Admin: 04/20/16 09:54 Dose: 40 mg Haloperidol (Haldol) 5 mg PO BID [facility] Azithromycin 500 mg/ Sodium (Chloride) 250 mls @ 250 mls/hr IVPB Q24H [facility] Last Admin: 04/20/16 10:01 Dose: 250 mls/hr Insulin Glargine (Lantus) 17 unit SC DAILY [facility] Last Admin: 04/20/16 09:55 Dose: 17 unit Insulin Glargine (Lantus) 30 unit SC HS [facility] Last Admin: 04/19/16 21:32 Dose: 30 unit Insulin Human Regular (Novolin R) 0 unit SC ACHS [facility] PRN Reason: Protocol Last Admin: 04/20/16 17:01 Dose: 5 unit Loratadine (Claritin) 10 mg PO DAILY [facility] Methylprednisolone (Solu-Medrol) 40 mg IVP Q12 [facility] Last Admin: 04/20/16 09:57 Dose: 40 mg Montelukast Sodium (Singulair) 10 mg PO HS [facility] Last Admin: 04/20/16 14:37 Dose: 10 mg Oxycodone/Acetaminophen (Percocet 5/325 Mg Tab) 1 tab PO BID PRN PRN Reason: pain Stop: 04/22/16 08:22 Last Admin: 04/20/16 17:00 Dose: 1 tab Promethazine HCl/Codeine (Phenergan/Codeine Oral Syrup) 5 ml PO Q4 PRN PRN Reason: Cough and congestion Sertraline HCl (Zoloft) 200 mg PO DAILY [facility] Results - Vital Signs Recent Vital Signs: Last Vital Signs Temp 98.6 F 04/20/16 15:23 Pulse 77 04/20/16 15:50 Resp 20 04/20/16 15:23 BP 145/81 04/20/16 15:23 Pulse Ox 97 04/20/16 15:23 - Labs Result Diagrams: 04/20/16 07:06 04/20/16 07:06 Labs: Laboratory Results - last 24 hr 04/19/16 04/20/1604/20/17 21:11 06:37 07:06 WBC 14.5 H RBC 5.03 Hgb 12.9 Hct 39.2 MCV 78.0 L MCH 25.5 L MCHC 32.8 L RDW 16.6 H Plt Count 206 MPV 8.5 Sodium 140 Potassium 4.3 Chloride 90 L Carbon Dioxide 35 H Anion Gap 19 BUN 25 H Creatinine 0.9 Est GFR ( Amer) > 60 Est GFR (Non-Af Amer) > 60 POC Glucose (mg/dL) 206 H 266 H Random Glucose 324 H Calcium 9.1 04/20/16 04/20/16 12:13 16:26 WBC RBC Hgb Hct MCV MCH MCHC RDW Plt Count MPV Sodium Potassium Chloride Carbon Dioxide Anion Gap BUN Creatinine Est GFR ( Amer) Est GFR (Non-Af Amer) POC Glucose (mg/dL) 236 H 376 H Random Glucose Calcium Assessment & Plan (1) Diabetes mellitus, insulin dependent (IDDM), uncontrolled Assessment and Plan: Endocrine consult reason for consult: uncontrolled diabetes Ms. jason Ching is 60 y/o admitted for copd exacerbation sterted on steroid as per pt. has DM x 20 years (+) neuropathy , (-) retinopathy , (-) nephropathy outpatient diabetes management regimen : lantus 17 units am & 30 units pm & Novolin R scale inpatient diabetes management regimen : lantus 17 units am & 30 units pm & novoloin R low dose scale scale blood glucose log :200-300 NO hypoglycemia Allergy NKDA Past medical history : CHF , respiratory faliure s/p trech , HTN Past surgical history : cataract , cholecystectomy , hysterectomy Psychiatry history : (+) psychiatry disorder Social history : smoking , ETOH use , illicit drug use Family history : aunt with thyroid disorder ROS: Constitutional: denies fever ,tiredness/weakness .HEENT: denies earache, change in voice .Respiratory: denies cough,(+) sob . CVS :no chest pain, no palpitations . Abdomen : no abdominal pain, no nausea /vomiting , no change bowel movement . 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 Extremities : no edema , no tremors . Skin: no itching, no rash Physical exam Well developed AAO x3 , ,NAD VSS HEENT: norm cephalic, atraumatic , no lid lag , no exophthalmos NECK: supple, no palpable lymphadenopathy , trechostomy cap in place THYROID: difficult to palpable thyroid with tracheotomy cap , not tender CHEST: fair air entry, bilateral, CVS: S1,S2 ABDOMEN: bowel sound present, benign, obese, no wide purple striae , no bruises EXTREMITIES: no edema, clubbing or cyanosis, no palpable hand tremors Skin : mild acanthosis nigricans lab: wbc 14 was 17 , cmp wnl Assessment uncontrolled IDDM with neuropathy steroid induced hyperglycemia morbid obesity copd excerbation psychiatry disorder plan continue lantus 17 & 30 unis continue Novoloin R low dose coverage start novoloin R 4 units tid with meals if eat > 60% obtain a1c & TSH will monitor Status: Acute (2) Diabetes mellitus with neuropathy Status: Acute (3) Steroid-induced hyperglycemia Status: Acute (4) Morbid obesity Status: Acute
[2016-04-21] MEDS: Acetylcysteine 20% Inhal Soln (4ml) INH SCH ×4 (01:12→19:18)
[2016-04-21] MEDS: Oxycodone/Acetaminophen 5/325 mg Tab PO PRN ×2 (01:50→20:20)
[2016-04-21] MEDS: Albuterol-Ipratrop 3 mg / 0.5 (3 ml) UD INH PRN ×2 (08:00→13:14)
[2016-04-21] MEDS: (Novolin R) Insulin Human Regular 100 units/ml vial SC SCH ×7 (08:20→21:36)
[2016-04-21] MEDS: (Lantus) Insulin Glargine, Recombinant SC SCH ×2 (10:01→21:37)
[2016-04-21] MEDS: MethylPREDNISolone 40 mg Vial IVP SCH ×2 (10:01→21:36)
[2016-04-21] MEDS: Enoxaparin 40 mg Syringe SC SCH (10:02)
--- NOTE | 2016-04-21 10:03 | CARD ---
APPROVED REPORT EKG Measurement Heart [id number] <Conclusion> Normal sinus rhythm Normal ECG
[2016-04-21] MEDS: Azithromycin 500 MG in Sodium Chloride 0.9% 250 ML IVPB SCH (10:58)
[2016-04-21] MEDS ORDERED: MethylPREDNISolone 40 mg Vial IVP SCH (23:30)
[2016-04-22] MEDS: Acetylcysteine 20% Inhal Soln (4ml) INH SCH (01:12)
[2016-04-22] MEDS: (Novolin R) Insulin Human Regular 100 units/ml vial SC SCH ×3 (08:15→12:08)
[2016-04-22 08:30] VITALS: BP 133/81; PULSE 81; RESP 18; TEMP 97.8
[2016-04-22] MEDS ORDERED: MethylPREDNISolone 40 mg Vial IVP SCH (09:07)
[2016-04-22] MEDS: (Lantus) Insulin Glargine, Recombinant SC SCH (09:38)
[2016-04-22] MEDS: Azithromycin 500 MG in Sodium Chloride 0.9% 250 ML IVPB SCH (12:08)
--- NOTE | 2016-04-23 11:59 | DS ---
CHIEF COMPLAINT: Coughing, shortness of breath. HISTORY OF PRESENT ILLNESS: The patient is a 60-year-old lady with history of multiple medical probl ems, trach, COPD, asthma, depression, emphysema, seizures, sleep apnea syndrome. Came in [facility] with coughing, shortness of breath. We admitted the patient, gave Solu-Medrol, inhaled bronchod ilators, but still patient was coughing, having shortness of breath. Then, we admitted the patient, called reticle printer, Dr. Rosado and psych consult called and patient got steroids, got better and tokam y discharged home, follow up with her own primary care physicians. Continue home medications. Presc ription of new medications given by the nurse practitioner. PAST MEDICAL HISTORY: Anxiety, asthma, bipolar, bronchitis, congestive heart failure, COPD, depressi on, emphysema, hypertension, pneumonia, seizures, sleep apnea. PAST MEDICAL HISTORY: Appendectomy, cholecystectomy. FAMILY HISTORY: Unknown. SOCIAL HISTORY: History of tobacco use, no alcohol use, no substance abuse. ALLERGIES: THE PATIENT IS ALLERGIC WITH ASPIRIN, CEFTRIAXONE, IBUPROFEN, IODINE, RASPBERRY. HOME MEDICATIONS: Reviewed by me. REVIEW OF SYSTEMS: The patient is seen and examined on the bedside early in the morning, looks comfo rtable. No nausea, vomiting, diarrhea. Feeling better. Shortness of breath better. No chest pain, no fever, no chills. PHYSICAL EXAMINATION: VITAL SIGNS: Temperature 97.8, pulse 81, blood pressure 133/81, respiratory rate 20. HEENT: Head normocephalic, atraumatic. Eyes: PERRLA. Extraocular muscles intact. Conjunctivae pi nk. Eyelids unremarkable. Nose patent. Mucous membranes moist. NECK: Supple. The patient has a trach. CHEST: Bilaterally symmetrical. LUNGS: Clear to auscultation. HEART: S1, S2 positive. ABDOMEN: Soft. Bowel sounds positive. No organomegaly. EXTREMITIES: No edema, no cyanosis. NEUROLOGIC: The patient is awake, alert, moving all 4 extremities. No focal deficits. LABORATORIES: White blood cells 14.5, hemoglobin 12.9, hematocrit 39.2, platelets 206. Glucose 260, 231, 268. ASSESSMENT AND PLAN: The patient is a 60-year-old lady with leukocytosis, diabetes mellitus with his tory of seizures, chronic obstructive pulmonary disease, asthma, trach, obesity, schizophrenia, chron ic obstructive lung disease exacerbation. Brought patient in the hospital. [employer] Course Director, Dr. Rosado, saw the patient. Bronchodilators, oxygen, steroids given. Dr. Sade Nunes followed patient, fixed the psych medications. The patient has history of appendectomy, cholecystectomy, emphysema, congesti ve heart failure. Sugar is getting bad due to diabetes and steroids. Mica Washer Gluer, Dr. Nemesio jain, is on the case. The patient went home. Prescriptions of medicines written by nurse practitioner. The patient will follow up with her own primary care physician. Celsa Jim MD cc: [id number] TT: 04/23/2016 11:58:41 en
--- NOTE | 2016-04-24 08:33 | PN ---
DATE: 04/21/2016 SUBJECTIVE: The patient was seen and examined on the bedside, looks a little bit better. No nausea, vomiting, or diarrhea. No hematuria or hematochezia. No swelling of the legs. The cough is better. Shortness of breath is better. PHYSICAL EXAMINATION: VITAL SIGNS: Temperature 98.0, pulse 80, blood pressure 152/90, respiratory rate 20. HEENT: Head normocephalic, atraumatic. Eyes, PERRLA. Extraocular muscles intact. Conjunctivae pink. Eyelids unremarkable. Nose patent. Mucous membranes moist. NECK: Supple. No carotid bruit, JVD or thyromegaly. CHEST: Bilaterally symmetrical. HEART: S1, S2 positive. LUNGS: Clear to auscultation. ABDOMEN: Soft. Bowel sounds positive. No organomegaly. EXTREMITIES: No edema, no cyanosis. NEUROLOGIC: The patient is awake, alert, moving all 4 extremities. No focal deficits. MEDICATIONS: ,azithromycin, Claritin, Cogentin, DuoNeb, Haldol, Lantus, Lasix, Lovenox, Novolin, Pepcid, oxycodone, promethazine, Singulair, Solu-Medrol, and Zoloft. LABORATORY DATA: White blood cells 14.5, hemoglobin 12.9, hematocrit 39.2, platelets 206. Glucose noted , 238, 271. Hemoglobin A1c is 10.1. ASSESSMENT AND PLAN: The patient is a 60-year-old lady with leukocytosis, uncontrolled diabetes mellitus with hemoglobin A1c at 10.1, influenza type A and B is negative, seen by Dr. Nemesio Don for her diabetes mellitus, steroids is also increasing her sugar, morbid obesity, chronic obstructive pulmonary disease exacerbation, psych disorder. According to Dr. Nemesio Don continue Lantus 17 and 30 units. Continue Novolin R low dose coverage, Novolin R 4 units t.i.d. with meals if eat more than 50%. We will decrease the steroids. We will follow up. Celsa Jim MD cc: [id number] TT: 04/22/2016 00:52:16 Confirmation # [id number] Dictation # [id number] [facility]
--- NOTE | 2016-04-26 05:36 | PN ---
DATE: 04/20/2016 SUBJECTIVE: The patient was seen and examined on the bedside on 04/20/2016. Feels little bit better. The patient was itchy last night, got Benadryl and the patient was not keeping very well due to itchiness after Benadryl felt better. The patient is complaining about chest congestion. Shortness of breath is better. Cough is better. No fever, no chills. PHYSICAL EXAMINATION: VITAL SIGNS: Temperature 98.7, pulse 58, respiratory rate 20, blood pressure 124/86, and pulse oximetry 98. HEAD: Normocephalic, atraumatic. EYES: PERRLA. Extraocular muscles intact. Conjunctivae pink. Eyelids unremarkable. Nose is patent. NECK: Supple. No carotid bruit, JVD, but has trach. LUNGS: Poor air entry. HEART: S1, S2 positive. ABDOMEN: Soft. Bowel sounds present. No organomegaly. EXTREMITIES: No edema, no cyanosis. NEUROLOGIC: The patient is awake, alert, moving all 4 extremities. No focal deficits. MEDICATIONS: Acetylcysteine, DuoNeb, Lovenox, Pepcid, Lasix, cough medications , Lantus, NovoLog, Protonix, Solu-Medrol, Percocet, Seroquel, Advair, Zoloft. LABORATORY DATA: White blood cells 14.5, hemoglobin 12.9, hematocrit 39.2, platelets 206. BUN 25, sodium 140, potassium 4.3, glucose 324. ASSESSMENT AND PLAN: The patient is a 60-year-old lady with uncontrolled diabetes mellitus, hypochloremia, high BUN, has chronic obstructive pulmonary disease exacerbation. Continue steroids, nebulizer, oxygen, mucolytic agent. Discontinue Advair Diskus. Add guaifenesin with codeine. Begin Phenergan with codeine for cough. Followup chest x-ray. Appreciated pulmonary input. The patient was seen by Dr. Lobo Mendez. 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 Nemesio Don for uncontrolled diabetes mellitus. The patient has obesity. Gastrointestinal and deep venous thrombosis prophylaxis. Repeat labs. We will follow up. Celsa Jim MD cc: [id number] TT: 04/26/2016 05:35:41 Confirmation # [id number] Dictation # [id number] [facility]
[2016-05-05 02:27] VITALS: O2SAT 97
--- NOTE | 2016-05-10 19:09 | CARD ---
APPROVED REPORT EKG Measurement Heart [id number] QT0T0 QTc0 <Conclusion> No QRS complexes found, no ECG analysis possible
== END 2016-04-22 15:15 | disposition home or self-care (01) ==
LOC: C.ER 22:54 → C.9E 04-18 00:49 → INTOOBSV 04-18 00:49 → C.6T 04-18 01:25
PROVIDERS: ADMIT Internal Medicine; ATTEND Internal Medicine
DX: J44.0 Chronic obstructive pulmonary disease with (acute) lower respiratory infection (principal); J18.9 Pneumonia, unspecified organism; E11.40 Type 2 diabetes mellitus with diabetic neuropathy, unspecified; I50.9 Heart failure, unspecified; R56.9 Unspecified convulsions; F25.9 Schizoaffective disorder, unspecified; E11.65 Type 2 diabetes mellitus with hyperglycemia; J44.1 Chronic obstructive pulmonary disease with (acute) exacerbation; I10 Essential (primary) hypertension; E66.9 Obesity, unspecified; F31.9 Bipolar disorder, unspecified; G47.30 Sleep apnea, unspecified; J45.909 Unspecified asthma, uncomplicated; L29.9 Pruritus, unspecified; F22 Delusional disorders; E66.01 Morbid (severe) obesity due to excess calories; T38.0X5A Adverse effect of glucocorticoids and synthetic analogues, initial encounter; Z93.0 Tracheostomy status; Z79.4 Long term (current) use of insulin; Z87.01 Personal history of pneumonia (recurrent); Z87.891 Personal history of nicotine dependence; Z90.49 Acquired absence of other specified parts of digestive tract
CPT/HCPCS: 31720; 36415; 71010; 80048; 80053; 82550; 82553; 82948; 83036; 83880; 84443; 84484; 85025; 85027; 87040; 87804; 93005; 94640; 96365; 96366; 96367; 96372; 96375; 96376; 99284; G0378; J0456; J1650; J2270; J2280; J2405; J2920; J2930; J7050

== ENCOUNTER 2016-05-19 19:05 | Inpatient (IN) | payer OTHER ==
[2016-05-19 19:27] VITALS: BMI 45.6
[2016-05-19] MEDS ORDERED: Sodium Chloride 0.9% 1,000 ML IV ONE (20:01)
[2016-05-19] MEDS ORDERED: Albuterol-Ipratrop 3 mg / 0.5 (3 ml) UD INH STA (20:02)
[2016-05-19] MEDS ORDERED: Moxifloxacin IV 400mg/250ml NS 250 ML IVPB ONE ×2 (20:03→21:00)
[2016-05-19] MEDS ORDERED: Albuterol-Ipratrop 3 mg / 0.5 (3 ml) UD ONE (20:17)
--- NOTE | 2016-05-19 20:24 | C.PDOC ---
History Of Present Illness 60 year old female pt brought in the ER via EMS with tracheostomy c/o of SOB, cough, and congestion for the last 2 weeks. Pt notes congestion was too much for her to breath and was given duonebs by EMS on the field. Tracheostomy suctioning was provided which imporved O2 saturation from 90 to 99. Pt reports body aches and fever denies any nausea, vomiting, diarrhea, or any other complaints. Time Seen by Provider: 05/19/16 19:52 Chief Complaint (Nursing): Shortness Of Breath History Per: Patient History/Exam Limitations: no limitations Onset/Duration Of Symptoms: Days Current Symptoms Are (Timing): Still Present Exacerbating Factor(s): Coughing Severity: Mild Associated Symptoms: Fever, Productive Cough, Other (Body aches) Past Medical History Reviewed: Historical Data, Nursing Documentation, Vital Signs Vital Signs: Last Vital Signs Temp 99.2 F 05/19/16 19:25 Pulse 101 H 05/19/16 21:52 Resp 20 05/19/16 21:52 BP 164/83 H 05/19/16 21:52 Pulse Ox 99 05/19/16 22:16 - Medical History PMH: Anxiety, Asthma, Bipolar Disorder, Bronchitis, CHF, COPD, Depression, Emphysema, HTN, Pneumonia, Seizures, Sleep Apnea Denies: Arthritis, HIV, Hypercholesterolemia, Hypothyroidism, Chronic Kidney Disease, Rheumatoid Arthritis, Sexually Transmitted Disease Surgical History: Appendectomy, Cholecystectomy - [facility] Procedures ASSISTANCE WITH RESPIRATORY VENTILATION, <24 HRS, CPAP (03/14/16) CENTRAL VENOUS CATHETER PLACEMENT WITH GUIDANCE (10/24/14) CONTINUOUS INVASIVE MECHANICAL VENTILATION <96 CONSEC HRS (03/07/14) ENTERAL INFUSION OF CONCENTRATED NUT. SUBSTANCES (09/17/12) INSERT ENDOTRACHEAL TUBE (09/17/12) INSERTION OF INFUSION DEV INTO SUP VENA CAVA, PERC APPROACH (12/03/15) INTRODUCE OF OTH THERAP SUBST INTO RESP TRACT, VIA OPENING (05/03/15) NEBULIZER THERAPY (09/17/12) RESPIRATORY VENTILATION, 24-96 CONSECUTIVE HOURS (03/14/16) Family History: States: Unknown Family Hx - Social History Hx Tobacco Use: No Hx Alcohol Use: No Hx Substance Use: No - Immunization History Hx Tetanus Toxoid Vaccination: No Hx Influenza Vaccination: No Hx Pneumococcal Vaccination: No Review Of Systems Except As Marked, All Systems Reviewed And Found Negative. Constitutional: Positive for: Fever ENT: Positive for: Nose Congestion Respiratory: Positive for: Cough, Shortness of Breath Gastrointestinal: Negative for: Nausea, Vomiting, Diarrhea Musculoskeletal: Positive for: Other (Body aches) Physical Exam - Physical Exam Appears: Non-toxic, No Acute Distress, Other (Morbiidly Obese, Cerntral obesity. Edon hump ) Skin: Warm, Dry, Other (Skin discharge) Head: Atraumatic, Normacephalic Respiratory: No Rales, Rhonchi (Scattered), Wheezing ED Course And Treatment - Laboratory Results Result Diagrams: 05/19/16 21:00 05/19/16 21:00 Lab Interpretation: Normal (+ leukocytosis) ECG: Interpreted By Me ECG Rhythm: Sinus Rhythm ECG Interpretation: Normal Rate From EC O2 Sat by Pulse Oximetry: 99 (Room air) Pulse Ox Interpretation: Normal - Radiology CXR: Interpreted by Me CXR Interpretation: Yes: Other (+ CHF) Reevaluation Time: 22:18 Reassessment Condition: Improved - Physician Consult Information Outcome Of Conversation: 2100: d/w Dr. Khan- nicholas to Tele Obs Medical Decision Making Medical Decision Making: Impression: 60 y/o female with SOB, coughs, and congestion. Plan: -EKG -Labs -CXR -IV fluids -Lasix -SOLU-Medrol -Albuterol -Reassess and disposition Discussed with Dr. Chappell at 4pm for admittance to patient care. Patient is resting comfortably with no wheezing, chest pain, or retractions. Oxygen saturation has improved. Patient is alert and oriented x 3. Patient was advised to follow up with physician in 1-2 days. copd, ? underlying PNA, ? CHF, but normal BNP Disposition Doctor Will See Patient In The: Hospital Counseled Patient/Family Regarding: Studies Performed, Diagnosis - Disposition Disposition: HOSPITALIZED Disposition Time: 22:19 Condition: GOOD - Clinical Impression Clinical Impression: Chronic pain, Chr obstructive pulmonary disease w/ acute lower respiratory infxn - Scribe Statement The provider has reviewed the documentation as recorded by the Tessibwilliams hennessy All medical record entries made by the Scribe were at my direction and personally dictated by me. I have reviewed the chart and agree that the record accurately reflects my personal performance of the history, physical exam, medical decision making, and the department course for this patient. I have also personally directed, reviewed, and agree with the discharge instructions and disposition.
[2016-05-19 21:11] LABS: CHLORIDE 96 mmol/L (98-107)
[2016-05-19 21:12] LABS: POTASSIUM 4.1 mmol/L (3.6-5.2); SODIUM 138 mmol/L (132-148)
[2016-05-19 21:14] LABS: AST/SGOT 16 U/L (14-36); BILIRUBIN,TOTAL 0.4 mg/dL (0.2-1.3); BLOOD UREA NITROGEN 12 mg/dL (7-17); CARBON DIOXIDE 25 mmol/L (22-30); GFR AFRICAN-AMERICAN > 60; TOTAL PROTEIN 8.4 g/dL (6.3-8.3)
[2016-05-19 21:15] LABS: ALKALINE PHOSPHATASE 138 U/L (38-126); ALT/SGPT 17 U/L (9-52); GLUCOSE,RANDOM 286 mg/dL (65-105)
[2016-05-19 21:17] LABS: BASO # 0.1 K/uL (0.0-0.2); BASO % 0.5 % (0.0-2.0); EOS # 0.3 K/uL (0.0-0.7); EOS % 1.5 % (0.0-4.0); HEMATOCRIT 38.8 % (34.0-47.0); LYMPH # 3.7 K/uL (1.0-4.3); LYMPH % 20.6 % (20.0-40.0); MEAN CELL VOLUME 79.7 fL (81.0-99.0); MEAN CORPUSCULAR HEMOGLOBIN 25.3 pg (27.0-31.0); MEAN CORPUSCULAR HGB CONC 31.7 g/dL (33.0-37.0); MEAN PLATELET VOLUME 8.4 fL (7.2-11.7); MONO # 1.2 K/uL (0.0-0.8); MONO % 6.4 % (0.0-10.0); WHITE BLOOD COUNT 18.1 K/uL (4.8-10.8)
[2016-05-19] MEDS ORDERED: Oxycodone/Acetaminophen 5/325 mg Tab PO STA (22:16)
[2016-05-19] MEDS ORDERED: Oxycodone/Acetaminophen 5/325 mg Tab ONE (22:19)
[2016-05-20] MEDS ORDERED: Albuterol-Ipratrop 3 mg / 0.5 (3 ml) UD INH STA (06:32)
[2016-05-20] MEDS ORDERED: Albuterol-Ipratrop 3 mg / 0.5 (3 ml) UD INH ONE ×2 (07:00→08:25)
[2016-05-20] MEDS: (Lantus) Insulin Glargine, Recombinant SC SCH ×2 (08:30→22:19)
[2016-05-20] MEDS ORDERED: Budesonide 0.5 mg/2 ml Inhal Susp UD IH SCH ×2 (10:00→20:00)
[2016-05-20] MEDS: Moxifloxacin IV 400mg/250ml NS 250 ML IVPB SCH (10:33)
[2016-05-20] MEDS: (Novolog) Insulin Aspart, Recombinant 100 u/ml 10 ml vial SC SCH ×5 (12:00→22:00)
--- NOTE | 2016-05-20 13:28 | RAD ---
PROCEDURE: CHEST RADIOGRAPH, 1 VIEW HISTORY: SOB COMPARISON: 04/18/2016 FINDINGS: LUNGS: Ill-defined perihilar opacities. PLEURA: Probable small left pleural effusion. No evidence of right pleural effusion. CARDIOVASCULAR: Curvilinear radiopacity above right hilum, likely artifact. Mild congestive change. OSSEOUS STRUCTURES: No significant abnormalities. VISUALIZED UPPER ABDOMEN: Normal. OTHER FINDINGS: None. IMPRESSION: Left pleural effusion and perihilar opacities. Possible early pulmonary edema. Curvilinear radiopacity above right hilum likely artifact.
--- NOTE | 2016-05-20 16:22 | CP.PCM.CON ---
History of Present Illness - History of Present Illness History of Present Illness: reason for consultation: shortness of breath, status post tracheostomy 60 year old female pt brought in the ER via EMS with tracheostomy c/o of SOB, cough, and congestion for the last 2 weeks. Pt notes congestion was too much for her to breath and was given duonebs by EMS on the field. Tracheostomy suctioning was provided which imporved O2 saturation from 90 to 99. Pt reports body aches and fever denies any nausea, vomiting, diarrhea, or any other complaints. Review of Systems - Review of Systems All systems: reviewed and no additional remarkable complaints except (Status post tracheostomy, complaining of cough and conges) Past Patient History - Infectious Disease Hx of Infectious Diseases: None - Tetanus Immunizations Tetanus Immunization: Unknown - Past Medical History & Family History Past Medical History?: Yes - Past Social History Smoking Status: Never Smoked - CARDIAC Hx Congestive Heart Failure: Yes Hx Hypercholesterolemia: No Hx Hypertension: Yes - PULMONARY Hx Asthma: Yes Hx Bronchitis: Yes Hx Chronic Obstructive Pulmonary Disease (COPD): Yes Hx Emphysema: Yes Hx Pneumonia: Yes Hx Sleep Apnea: Yes - NEUROLOGICAL Hx Seizures: Yes - HEENT Hx HEENT Problems: Yes Hx Cataracts: Yes - RENAL Hx Chronic Kidney Disease: No - ENDOCRINE/METABOLIC Hx Hypothyroidism: No - HEMATOLOGICAL/ONCOLOGICAL Hx Human Immunodeficiency Virus (HIV): No - INTEGUMENTARY Hx Dermatological Problems: No - MUSCULOSKELETAL/RHEUMATOLOGICAL Hx Falls: Yes - GASTROINTESTINAL Hx Gastrointestinal Disorders: Yes Other/Comment: cholecystectomy - GENITOURINARY/GYNECOLOGICAL Hx Sexually Transmitted Disorders: No - PSYCHIATRIC Hx Substance Use: No - SURGICAL HISTORY Hx Appendectomy: Yes Hx Cholecystectomy: Yes Hx Hysterectomy: Yes (age 26) - ANESTHESIA Hx Anesthesia: Yes Hx Anesthesia Reactions: No Hx Malignant Hyperthermia: No Meds Allergies/Adverse Reactions: Allergies Allergy/AdvReac Type Severity Reaction Status Date / Time aspirin Allergy ANAPHYLAXIS Verified 05/19/16 19:24 ceftriaxone sodium Allergy ANAPHYLAXIS Verified 05/19/16 19:24 [From Rocephin] ibuprofen [From Motrin] Allergy ANAPHYLAXIS Verified 05/19/16 19:24 iodine Allergy ANAPHYLAXIS Verified 05/19/16 19:24 raspberry Allergy ANAPHYLAXIS Verified 05/19/16 19:24 - Medications Medications: Current Medications Acetaminophen (Tylenol 325mg Tab) 650 mg PO Q6 PRN PRN Reason: Pain, moderate (4-7) Last Admin: 05/20/16 10:49 Dose: 650 mg Budesonide (Pulmicort Respules) 0.5 mg IH RQ12 [facility] Gabapentin (Neurontin) 800 mg PO TID [facility] Last Admin: 05/20/16 14:10 Dose: 800 mg Heparin Sodium (Porcine) (Heparin) 5,000 units SC Q12 [facility] Last Admin: 05/20/16 10:33 Dose: 5,000 units Moxifloxacin HCl (Avelox Iv 400mg/250ml Ns) 250 mls @ 167 mls/hr IVPB Q24H [facility] Last Admin: 05/20/16 10:33 Dose: 167 mls/hr Insulin Aspart (Novolog) 9 unit SC TIDAC [facility] Last Admin: 05/20/16 12:00 Dose: 9 unit Insulin Aspart (Novolog) 0 unit SC ACHS [facility] PRN Reason: Protocol Last Admin: 05/20/16 12:00 Dose: 4 unit Insulin Glargine (Lantus) 17 unit SC ACB [facility] Last Admin: 05/20/16 08:30 Dose: Not Given Insulin Glargine (Lantus) 30 unit SC HS [facility] Ipratropium [place] (Atrovent) 0.5 mg IH RQ4 PRN PRN Reason: SOB Lamotrigine (Lamictal) 100 mg PO BID [facility] Last Admin: 05/20/16 11:05 Dose: 100 mg Quetiapine Fumarate (Seroquel) 400 mg PO BID [facility] Last Admin: 05/20/16 11:06 Dose: 400 mg Sertraline HCl (Zoloft) 100 mg PO BID [facility] Last Admin: 05/20/16 11:04 Dose: 100 mg Physical Exam - Head Exam Head Exam: ATRAUMATIC, NORMOCEPHALIC - Eye Exam Eye Exam: Normal appearance - ENT Exam ENT Exam: Mucous Membranes Moist - Neck Exam Neck exam: Positive for: Normal Inspection - Respiratory Exam Respiratory Exam: Rales, Rhonchi - Cardiovascular Exam Cardiovascular Exam: REGULAR RHYTHM - GI/Abdominal Exam GI & Abdominal Exam: Normal Bowel Sounds - Extremities Exam Extremities exam: Positive for: pedal edema Results - Vital Signs Recent Vital Signs: Last Vital Signs Temp 98.1 F 05/20/16 16:11 Pulse 92 H 05/20/16 16:11 Resp 18 05/20/16 16:11 BP 164/83 H 05/20/16 16:11 Pulse Ox 96 05/20/16 16:11 - Labs Result Diagrams: 05/19/16 21:00 05/19/16 21:00 Labs: Laboratory Results - last 24 hr 05/20/16 05/20/16 05/20/16 06:09 11:37 16:10 POC Glucose (mg/dL) 399 H 344 H 216 H Assessment & Plan (1) Chr obstructive pulmonary disease w/ acute lower respiratory infxn Status: Acute Comment: status post tracheostomy. Chest x-ray consistent with perihilar infiltrate. Elevated white count. Start Zosyn, continue Avelox. Tracheal aspirate for cult. procalcitonin level
[2016-05-20] MEDS ORDERED: Piperacill/Tazo 3.375gm in Dex 50 ML IVPB SCH (16:30)
[2016-05-20] MEDS: Ipratropium 0.02% Inhal Soln (0.5 mg/2.5 ml) UD IH PRN (19:49)
[2016-05-20] MEDS: Piperacill/Tazo 3.375gm in Dex 50 ML IVPB SCH (22:35)
[2016-05-21] MEDS: Piperacill/Tazo 3.375gm in Dex 50 ML IVPB SCH ×3 (08:00→22:46)
[2016-05-21] MEDS: (Lantus) Insulin Glargine, Recombinant SC SCH ×2 (08:00→21:53)
[2016-05-21] MEDS: (Novolog) Insulin Aspart, Recombinant 100 u/ml 10 ml vial SC SCH ×7 (08:00→21:40)
[2016-05-21] MEDS: Moxifloxacin IV 400mg/250ml NS 250 ML IVPB SCH (09:19)
--- NOTE | 2016-05-21 16:14 | CP.PCM.HP ---
History of Present Illness - History of Present Illness History of Present Illness: Cheif complain: cough & shortness of breath x 2 days HPI: 60 year old morbidely obese female pt woth PMH of COPD, DM, tracheostomy brought in the ER via EMS with tracheostomy c/o of SOB, cough associated with thick greenish sputum, and congestion for the last 2 weeks. Pt notes congestion was too much for her to breath and was given duonebs by EMS on the field. Tracheostomy suctioning was provided which imporved O2 saturation from 90 to 99. Pt reports body aches and fever denies any nausea, vomiting, diarrhea, or any other complaints. Present on Admission - Present on Admission Any Indicators Present on Admission: No Review of Systems - Review of Systems Systems not reviewed;Unavailable: Respiratory Distress - Constitutional Constitutional: Fatigue, Malaise, Weakness - EENT Nose/Mouth/Throat: Nasal Congestion - Respiratory Respiratory: Cough, Chest Congestion. absent: As Per HPI, Dyspnea, Hemoptysis, Dyspnea on Exertion, Wheezing, Snoring, Stridor, Pain on Inspiration, Excessive Mucous Production, Change in Mucous Color, Pain with Coughing, Other - Gastrointestinal Gastrointestinal: absent: As Per HPI, Abdominal Pain, Belching, Bloating, Change in Bowel Habits, Change in Stool Character, Coffee Ground Emesis, Constipation, Cramping, Diarrhea, Dyspepsia, Dysphagia, Early Satiety, Excessive Flatus, Fecal Incontinence, Heartburn, Hematemesis, Hematochezia, Loose Stools, Melena, Nausea, Odynophagia, Temesmus, Vomiting, Other - Genitourinary Genitourinary: Nocturia - Musculoskeletal Musculoskeletal: Muscle Weakness - Integumentary Integumentary: absent: As Per HPI, Acne, Alopecia, Bleeding Lesions, Change in Hair, Change in Nails, Change in Pigmentation, Changing Lesions, Dry Skin, Erythema, Furuncle, Hirsutism, Lesions, New Lesions, Non-Healing Lesions, Photosensitivity, Pruritus, Rash, Skin Pain, Skin Ulcer, Sores, Striae, Swelling , Unusual Bruising, Wounds, Jaundice, Other - Neurological Neurological: Numbness, Tingling. absent: As Per HPI, Abnormal Gait, Abnormal Hearing, Abnormal Movements, Abnormal Speech, Behavioral Changes, Burning Sensations, Confusion, Convulsions, Disequilibrium, Dizziness, Focal Weakness, Frequent Falls, Headaches, Lack of Coordination, Loss of Vision, Memory Loss, Paresthesias, Radicular Pain, Restless Legs, Sensory Deficit, Syncope, Tremor, Vertigo, Weakness, Other Visual Disturbances, Other - Psychiatric Psychiatric: Depression - Endocrine Endocrine: Polydipsia, Polyuria Past Patient History - Infectious Disease Hx of Infectious Diseases: None - Tetanus Immunizations Tetanus Immunization: Unknown - Past Medical History & Family History Past Medical History?: Yes - Past Social History Smoking Status: Never Smoked - CARDIAC Hx Congestive Heart Failure: Yes Hx Hypercholesterolemia: No Hx Hypertension: Yes - PULMONARY Hx Asthma: Yes Hx Bronchitis: Yes Hx Chronic Obstructive Pulmonary Disease (COPD): Yes Hx Emphysema: Yes Hx Pneumonia: Yes Hx Sleep Apnea: Yes - NEUROLOGICAL Hx Seizures: Yes - HEENT Hx HEENT Problems: Yes Hx Cataracts: Yes - RENAL Hx Chronic Kidney Disease: No - ENDOCRINE/METABOLIC Hx Hypothyroidism: No - HEMATOLOGICAL/ONCOLOGICAL Hx Human Immunodeficiency Virus (HIV): No - INTEGUMENTARY Hx Dermatological Problems: No - MUSCULOSKELETAL/RHEUMATOLOGICAL Hx Falls: Yes - GASTROINTESTINAL Hx Gastrointestinal Disorders: Yes Other/Comment: cholecystectomy - GENITOURINARY/GYNECOLOGICAL Hx Sexually Transmitted Disorders: No - PSYCHIATRIC Hx Substance Use: No - SURGICAL HISTORY Hx Appendectomy: Yes Hx Cholecystectomy: Yes Hx Hysterectomy: Yes (age 26) - ANESTHESIA Hx Anesthesia: Yes Hx Anesthesia Reactions: No Hx Malignant Hyperthermia: No Meds Home Medications: Home Medication List Medication Instructions Recorded Confirmed Type predniSONE [Prednisone] 30 mg PO DAILY #18 tab 06/02/16 Rx Allergies/Adverse Reactions: Allergies Allergy/AdvReac Type Severity Reaction Status Date / Time aspirin Allergy ANAPHYLAXIS Verified 05/19/16 19:24 ceftriaxone sodium Allergy ANAPHYLAXIS Verified 05/19/16 19:24 [From Rocephin] ibuprofen [From Motrin] Allergy ANAPHYLAXIS Verified 05/19/16 19:24 iodine Allergy ANAPHYLAXIS Verified 05/19/16 19:24 raspberry Allergy ANAPHYLAXIS Verified 05/19/16 19:24 Physical Exam - Constitutional Appears: Well, Chronically Ill - Head Exam Head Exam: ATRAUMATIC, NORMAL INSPECTION, NORMOCEPHALIC - ENT Exam ENT Exam: Mucous Membranes Moist Additional comments: cleaned healed tracheostomy - Respiratory Exam Respiratory Exam: Clear to Auscultation Bilateral, NORMAL BREATHING PATTERN - Cardiovascular Exam Cardiovascular Exam: REGULAR RHYTHM - GI/Abdominal Exam GI & Abdominal Exam: Normal Bowel Sounds, Soft. absent: Tenderness - Neurological Exam Neurological exam: Alert, CN II-XII Intact, Normal Gait, Oriented x3, Reflexes Normal - Psychiatric Exam Psychiatric exam: Depressed Results - Vital Signs Recent Vital Signs: Last Vital Signs Temp 98.6 F 05/21/16 15:32 Pulse 83 05/21/16 15:32 Resp 20 05/21/16 15:32 BP 124/81 05/21/16 15:32 Pulse Ox 96 05/21/16 15:32 - Labs Result Diagrams: 06/02/16 07:37 06/02/16 07:37 Labs: Laboratory Results - last 24 hr 05/21/16 11:52 POC Glucose (mg/dL) 313 H Assessment & Plan - Assessment and Plan (Free Text) Assessment: (1) Chr obstructive pulmonary disease w/ acute lower respiratory infxn Status: Acute Comment: status post tracheostomy. Chest x-ray consistent with perihilar infiltrate. Elevated white count. Start Zosyn, continue Avelox. Tracheal aspirate for cult. procalcitonin level 2. DIABETES 3.HTN 4. DEPRESSION plan: Admit, pulmonary eval to rule out pnemonia trachestomy care
--- NOTE | 2016-05-21 23:09 | CP.PCM.PN ---
Subjective - Date & Time of Evaluation Date of Evaluation: 05/21/16 Time of Evaluation: 13:21 - Subjective Subjective: pt seen & examined, less cough, less short of breath, tracheostomy site is clean also seen by pulmonary, cultures are so far negative Objective - Vital Signs/Intake and Output Vital Signs (last 24 hours): Temp Pulse Resp BP Pulse Ox 98.6 F 83 20 124/81 96 05/21/16 15:32 05/21/16 15:32 05/21/16 15:32 05/21/16 15:32 05/21/16 15:32 Intake and Output: 05/21/16 05/22/16 18:59 06:59 Intake Total 800 Balance 800 - Medications Medications: Current Medications Acetaminophen (Tylenol 325mg Tab) 650 mg PO Q6 PRN PRN Reason: Pain, moderate (4-7) Last Admin: 05/20/16 18:30 Dose: 650 mg Gabapentin (Neurontin) 800 mg PO TID [facility] Last Admin: 05/21/16 17:13 Dose: 800 mg Heparin Sodium (Porcine) (Heparin) 5,000 units SC Q12 [facility] Last Admin: 05/21/16 21:37 Dose: 5,000 units Moxifloxacin HCl (Avelox Iv 400mg/250ml Ns) 250 mls @ 167 mls/hr IVPB Q24H [facility] Last Admin: 05/21/16 09:19 Dose: 167 mls/hr Piperacillin Sod/Tazobactam Sod (Zosyn 3.375 Gm Iv Premix) 50 mls @ 100 mls/hr IVPB Q8H [facility] Last Admin: 05/21/16 22:46 Dose: 100 mls/hr Insulin Aspart (Novolog) 9 unit SC TIDAC [facility] Last Admin: 05/21/16 17:14 Dose: 9 unit Insulin Aspart (Novolog) 0 unit SC ACHS [facility] PRN Reason: Protocol Last Admin: 05/21/16 21:40 Dose: Not Given Insulin Glargine (Lantus) 17 unit SC ACB [facility] Last Admin: 05/21/16 08:00 Dose: 17 units Insulin Glargine (Lantus) 30 unit SC HS [facility] Last Admin: 05/21/16 21:53 Dose: 30 units Ipratropium [place] (Atrovent) 0.5 mg IH RQ4 PRN PRN Reason: SOB Last Admin: 05/20/16 19:49 Dose: 0.5 mg Lamotrigine (Lamictal) 100 mg PO BID [facility] Last Admin: 05/21/16 17:12 Dose: 100 mg Morphine Sulfate (Morphine) 2 mg IV Q4 PRN PRN Reason: Pain, severe (8-10) Last Admin: 05/21/16 21:38 Dose: 2 mg Quetiapine Fumarate (Seroquel) 400 mg PO BID [facility] Last Admin: 05/21/16 17:16 Dose: 400 mg Sertraline HCl (Zoloft) 100 mg PO BID [facility] Last Admin: 05/21/16 17:15 Dose: 100 mg - Constitutional Appears: No Acute Distress - Head Exam Head Exam: ATRAUMATIC, NORMAL INSPECTION, NORMOCEPHALIC - Neck Exam Additional comments: tracheotomy site is clean - Respiratory Exam Respiratory Exam: Decreased Breath Sounds, Wheezes - Cardiovascular Exam Cardiovascular Exam: REGULAR RHYTHM, +S1, +S2. absent: Murmur - GI/Abdominal Exam GI & Abdominal Exam: Soft, Normal Bowel Sounds. absent: Tenderness - Neurological Exam Neurological Exam: Alert, Awake, CN II-XII Intact, Normal Gait, Oriented x3 Assessment and Plan - Assessment and Plan (Free Text) Assessment: EXCERBERATION OF COPD/BRONCHIAL ASTHAMA DM HTN DEPRESSION S/P TRACHEOSTOMY
[2016-05-22 07:10] LABS: CHLORIDE 100 mmol/L (98-107); SODIUM 143 mmol/L (132-148)
[2016-05-22] MEDS: Piperacill/Tazo 3.375gm in Dex 50 ML IVPB SCH ×3 (07:10→22:06)
[2016-05-22 07:11] LABS: POTASSIUM 4.4 mmol/L (3.6-5.2)
[2016-05-22 07:13] LABS: CARBON DIOXIDE 34 mmol/L (22-30); GFR AFRICAN-AMERICAN > 60
[2016-05-22 07:14] LABS: BLOOD UREA NITROGEN 16 mg/dL (7-17); CALCIUM 8.9 mg/dl (8.6-10.4); GLUCOSE,RANDOM 145 mg/dL (65-105)
[2016-05-22 07:16] LABS: BASO % 0.5 % (0.0-2.0); EOS # 0.3 K/uL (0.0-0.7); EOS % 3.2 % (0.0-4.0); HEMATOCRIT 35.3 % (34.0-47.0); LYMPH # 2.5 K/uL (1.0-4.3); LYMPH % 26.2 % (20.0-40.0); MEAN CELL VOLUME 79.1 fL (81.0-99.0); MEAN CORPUSCULAR HEMOGLOBIN 25.7 pg (27.0-31.0); MEAN CORPUSCULAR HGB CONC 32.5 g/dL (33.0-37.0); MONO # 0.9 K/uL (0.0-0.8); MONO % 9.7 % (0.0-10.0); NRBC % 0.1 % (0.0-2.0); RED CELL DISTRIBUTION WIDTH 16.1 % (11.5-14.5); WHITE BLOOD COUNT 9.7 K/uL (4.8-10.8)
[2016-05-22] MEDS: (Novolog) Insulin Aspart, Recombinant 100 u/ml 10 ml vial SC SCH ×7 (08:18→22:15)
[2016-05-22] MEDS: (Lantus) Insulin Glargine, Recombinant SC SCH ×2 (08:49→22:21)
[2016-05-22] MEDS: Moxifloxacin IV 400mg/250ml NS 250 ML IVPB SCH (10:12)
--- NOTE | 2016-05-22 14:13 | CP.PCM.PN ---
Subjective - Date & Time of Evaluation Date of Evaluation: 05/22/16 Time of Evaluation: 10:20 - Subjective Subjective: Pt seen and examined at bedside today, as per nursing there were no acute events overnight. The pt reports no improvement in breathing function from yesterday, but has been tolerating the treatments. Pt reports to coughing and bringing up yellow sputum today, continues to reports shortness of breath. Objective - Vital Signs/Intake and Output Vital Signs (last 24 hours): Temp Pulse Resp BP Pulse Ox 98.9 F 91 H 18 134/78 94 L 05/22/16 07:40 05/22/16 07:55 05/22/16 07:40 05/22/16 07:40 05/22/16 07:40 Intake and Output: 05/22/16 05/22/16 06:59 18:59 Intake Total 530 Balance 530 - Medications Medications: Current Medications Acetaminophen (Tylenol 325mg Tab) 650 mg PO Q6 PRN PRN Reason: Pain, moderate (4-7) Last Admin: 05/20/16 18:30 Dose: 650 mg Gabapentin (Neurontin) 800 mg PO TID [facility] Last Admin: 05/22/16 10:11 Dose: 800 mg Heparin Sodium (Porcine) (Heparin) 5,000 units SC Q12 [facility] Last Admin: 05/22/16 10:11 Dose: 5,000 units Moxifloxacin HCl (Avelox Iv 400mg/250ml Ns) 250 mls @ 167 mls/hr IVPB Q24H [facility] Last Admin: 05/22/16 10:12 Dose: 167 mls/hr Piperacillin Sod/Tazobactam Sod (Zosyn 3.375 Gm Iv Premix) 50 mls @ 100 mls/hr IVPB Q8H [facility] Last Admin: 05/22/16 07:10 Dose: 100 mls/hr Insulin Aspart (Novolog) 9 unit SC TIDAC [facility] Last Admin: 05/22/16 12:43 Dose: 9 unit Insulin Aspart (Novolog) 0 unit SC ACHS [facility] PRN Reason: Protocol Last Admin: 05/22/16 12:12 Dose: Not Given Insulin Glargine (Lantus) 17 unit SC ACB [facility] Last Admin: 05/22/16 08:49 Dose: 17 units Insulin Glargine (Lantus) 30 unit SC HS [facility] Last Admin: 05/21/16 21:53 Dose: 30 units Ipratropium [place] (Atrovent) 0.5 mg IH RQ4 PRN PRN Reason: SOB Last Admin: 05/20/16 19:49 Dose: 0.5 mg Lamotrigine (Lamictal) 100 mg PO BID [facility] Last Admin: 05/22/16 10:10 Dose: 100 mg Morphine Sulfate (Morphine) 2 mg IV Q4 PRN PRN Reason: Pain, severe (8-10) Last Admin: 05/22/16 12:36 Dose: 2 mg Quetiapine Fumarate (Seroquel) 400 mg PO BID [facility] Last Admin: 05/22/16 10:11 Dose: 400 mg Sertraline HCl (Zoloft) 100 mg PO BID [facility] Last Admin: 05/22/16 10:11 Dose: 100 mg - Labs Labs: 05/22/16 06:00 05/22/16 06:00 - Constitutional Appears: Well, Non-toxic, No Acute Distress - Head Exam Head Exam: ATRAUMATIC, NORMAL INSPECTION - Eye Exam Eye Exam: Normal appearance - Respiratory Exam Respiratory Exam: Rales, Rhonchi - Cardiovascular Exam Cardiovascular Exam: +S1, +S2. absent: Gallop, Rubs, Murmur - Neurological Exam Neurological Exam: Alert, Awake, Oriented x3 - Skin Skin Exam: Dry, Normal Color, Warm Assessment and Plan - Assessment and Plan (Free Text) Plan: 1) Chr obstructive pulmonary disease w/ acute lower respiratory infxn continue Abx continue steroids continue recommendations from medicine team Status: Acute
--- NOTE | 2016-05-22 22:28 | CP.PCM.PN ---
Subjective - Date & Time of Evaluation Date of Evaluation: 05/22/16 Time of Evaluation: 13:33 - Subjective Subjective: Pt seen & examined, Pt reports to coughing and bringing up yellow sputum today, continues to reports shortness of breath.tracheostomy site is clean Objective - Vital Signs/Intake and Output Vital Signs (last 24 hours): Temp Pulse Resp BP Pulse Ox 982 F H 85 20 114/71 96 05/22/16 16:23 05/22/16 17:00 05/22/16 16:23 05/22/16 16:23 05/22/16 16:23 - Medications Medications: Current Medications Acetaminophen (Tylenol 325mg Tab) 650 mg PO Q6 PRN PRN Reason: Pain, moderate (4-7) Last Admin: 05/20/16 18:30 Dose: 650 mg Gabapentin (Neurontin) 800 mg PO TID [facility] Last Admin: 05/22/16 17:57 Dose: 800 mg Heparin Sodium (Porcine) (Heparin) 5,000 units SC Q12 [facility] Last Admin: 05/22/16 22:05 Dose: 5,000 units Moxifloxacin HCl (Avelox Iv 400mg/250ml Ns) 250 mls @ 167 mls/hr IVPB Q24H [facility] Last Admin: 05/22/16 10:12 Dose: 167 mls/hr Piperacillin Sod/Tazobactam Sod (Zosyn 3.375 Gm Iv Premix) 50 mls @ 100 mls/hr IVPB Q8H [facility] Last Admin: 05/22/16 22:06 Dose: 100 mls/hr Insulin Aspart (Novolog) 9 unit SC TIDAC [facility] Last Admin: 05/22/16 16:30 Dose: Not Given Insulin Aspart (Novolog) 0 unit SC ACHS [facility] PRN Reason: Protocol Last Admin: 05/22/16 22:15 Dose: Not Given Insulin Glargine (Lantus) 17 unit SC ACB [facility] Last Admin: 05/22/16 08:49 Dose: 17 units Insulin Glargine (Lantus) 30 unit SC HS [facility] Last Admin: 05/22/16 22:21 Dose: 30 units Ipratropium [place] (Atrovent) 0.5 mg IH RQ4 PRN PRN Reason: SOB Last Admin: 05/20/16 19:49 Dose: 0.5 mg Lamotrigine (Lamictal) 100 mg PO BID [facility] Last Admin: 05/22/16 17:57 Dose: 100 mg Morphine Sulfate (Morphine) 2 mg IV Q4 PRN PRN Reason: Pain, severe (8-10) Last Admin: 05/22/16 19:37 Dose: 2 mg Quetiapine Fumarate (Seroquel) 400 mg PO BID [facility] Last Admin: 05/22/16 17:53 Dose: 400 mg Sertraline HCl (Zoloft) 100 mg PO BID [facility] Last Admin: 05/22/16 17:57 Dose: 100 mg - Labs Labs: 05/22/16 06:00 05/22/16 06:00 - Constitutional Appears: No Acute Distress, Chronically Ill - Head Exam Head Exam: ATRAUMATIC, NORMAL INSPECTION, NORMOCEPHALIC - ENT Exam ENT Exam: Mucous Membranes Moist - Neck Exam Additional comments: tracheostomy - Respiratory Exam Respiratory Exam: Decreased Breath Sounds, Rales, Rhonchi, Wheezes - Cardiovascular Exam Cardiovascular Exam: REGULAR RHYTHM, +S1, +S2. absent: Murmur - GI/Abdominal Exam GI & Abdominal Exam: Soft, Normal Bowel Sounds. absent: Tenderness Assessment and Plan - Assessment and Plan (Free Text) Assessment: EXCERBERATION OF COPD/BRONCHIAL ASTHAMA DM HTN DEPRESSION S/P TRACHEOSTOMY Plan: continue current medical managemnt, continue Abx continue steroids, pulmonary evaluation
[2016-05-23] MEDS: Piperacill/Tazo 3.375gm in Dex 50 ML IVPB SCH ×3 (06:08→22:17)
[2016-05-23] MEDS: (Novolog) Insulin Aspart, Recombinant 100 u/ml 10 ml vial SC SCH ×7 (08:14→21:46)
[2016-05-23] MEDS: (Lantus) Insulin Glargine, Recombinant SC SCH ×2 (08:26→21:45)
[2016-05-23] MEDS: Moxifloxacin IV 400mg/250ml NS 250 ML IVPB SCH (10:59)
--- NOTE | 2016-05-23 13:01 | CP.PCM.PN ---
Subjective - Date & Time of Evaluation Date of Evaluation: 05/23/16 Time of Evaluation: 10:30 - Subjective Subjective: Patient seen and examined at bedside today. The patient reports mild improvement , but still reports a productive cough with sputum production, but says that she feels as if the congestion has very mildly improved. The patient's tracheostomy is patent, skin near the ostomy is clean, dry, and intact w/ no inflammation or exudates present. Pt currently denies chest pain, palpitations, n/v/f/c at this time. Objective - Vital Signs/Intake and Output Vital Signs (last 24 hours): Temp Pulse Resp BP Pulse Ox 98.2 F 77 18 132/77 95 05/23/16 08:11 05/23/16 08:11 05/23/16 08:11 05/23/16 08:11 05/23/16 08:11 Intake and Output: 05/23/16 05/23/16 06:59 18:59 Intake Total 340 Balance 340 - Medications Medications: Current Medications Acetaminophen (Tylenol 325mg Tab) 650 mg PO Q6 PRN PRN Reason: Pain, moderate (4-7) Last Admin: 05/20/16 18:30 Dose: 650 mg Gabapentin (Neurontin) 800 mg PO TID [facility] Last Admin: 05/23/16 10:30 Dose: 800 mg Moxifloxacin HCl (Avelox Iv 400mg/250ml Ns) 250 mls @ 167 mls/hr IVPB Q24H [facility] Last Admin: 05/23/16 10:59 Dose: 167 mls/hr Piperacillin Sod/Tazobactam Sod (Zosyn 3.375 Gm Iv Premix) 50 mls @ 100 mls/hr IVPB Q8H [facility] Last Admin: 05/23/16 06:08 Dose: 100 mls/hr Insulin Aspart (Novolog) 9 unit SC TIDAC [facility] Last Admin: 05/23/16 08:27 Dose: 9 unit Insulin Aspart (Novolog) 0 unit SC ACHS [facility] PRN Reason: Protocol Last Admin: 05/23/16 08:14 Dose: Not Given Insulin Glargine (Lantus) 17 unit SC ACB [facility] Last Admin: 05/23/16 08:26 Dose: 17 units Insulin Glargine (Lantus) 30 unit SC HS [facility] Last Admin: 05/22/16 22:21 Dose: 30 units Ipratropium [place] (Atrovent) 0.5 mg IH RQ4 PRN PRN Reason: SOB Last Admin: 05/20/16 19:49 Dose: 0.5 mg Lamotrigine (Lamictal) 100 mg PO BID [facility] Last Admin: 05/23/16 10:31 Dose: 100 mg Morphine Sulfate (Morphine) 2 mg IV Q4 PRN PRN Reason: Pain, severe (8-10) Last Admin: 05/23/16 06:10 Dose: 2 mg Quetiapine Fumarate (Seroquel) 400 mg PO BID [facility] Last Admin: 05/23/16 10:30 Dose: 400 mg Sertraline HCl (Zoloft) 100 mg PO BID [facility] Last Admin: 05/23/16 10:30 Dose: 100 mg - Labs Labs: 05/22/16 06:00 05/22/16 06:00 - Constitutional Appears: Well, No Acute Distress - Head Exam Head Exam: ATRAUMATIC, NORMAL INSPECTION - Eye Exam Eye Exam: Normal appearance Pupil Exam: NORMAL ACCOMODATION - ENT Exam ENT Exam: Normal Exam - Neck Exam Neck Exam: Normal Inspection - Respiratory Exam Respiratory Exam: Decreased Breath Sounds, Wheezes. absent: Respiratory Distress - Cardiovascular Exam Cardiovascular Exam: REGULAR RHYTHM, +S1, +S2. absent: Gallop, Rubs, Murmur - Neurological Exam Neurological Exam: Alert, Awake, Oriented x3 - Skin Skin Exam: Dry, Normal Color, Warm Assessment and Plan - Assessment and Plan (Free Text) Plan: 1) Chr obstructive pulmonary disease w/ acute lower respiratory infxn continue Abx continue steroids continue recommendations from medicine team patient is improving
[2016-05-24] MEDS: Piperacill/Tazo 3.375gm in Dex 50 ML IVPB SCH (06:06)
[2016-05-24] MEDS: (Lantus) Insulin Glargine, Recombinant SC SCH ×2 (08:16→21:37)
[2016-05-24] MEDS: (Novolog) Insulin Aspart, Recombinant 100 u/ml 10 ml vial SC SCH ×7 (08:18→21:38)
--- NOTE | 2016-05-24 09:46 | CP.PCM.PN ---
Subjective - Date & Time of Evaluation Date of Evaluation: 05/24/16 Time of Evaluation: 10:00 - Subjective Subjective: Patient was seen and examined today at bedside, reports that she is feeling better from yesterday. Pt reports that cough is improving and there is a reduction in sputum production. Aure n/v/f/c, chest pain, palpitations, headaches at this time. Objective - Vital Signs/Intake and Output Vital Signs (last 24 hours): Temp Pulse Resp BP Pulse Ox 98.3 F 74 20 136/80 96 05/24/16 09:17 05/24/16 09:17 05/24/16 09:17 05/24/16 09:17 05/24/16 09:17 - Medications Medications: Current Medications Acetaminophen (Tylenol 325mg Tab) 650 mg PO Q6 PRN PRN Reason: Pain, moderate (4-7) Last Admin: 05/20/16 18:30 Dose: 650 mg Gabapentin (Neurontin) 800 mg PO TID [facility] Last Admin: 05/23/16 17:35 Dose: 800 mg Moxifloxacin HCl (Avelox Iv 400mg/250ml Ns) 250 mls @ 167 mls/hr IVPB Q24H [facility] Last Admin: 05/23/16 10:59 Dose: 167 mls/hr Piperacillin Sod/Tazobactam Sod (Zosyn 3.375 Gm Iv Premix) 50 mls @ 100 mls/hr IVPB Q8H [facility] Last Admin: 05/24/16 06:06 Dose: 100 mls/hr Insulin Aspart (Novolog) 9 unit SC TIDAC [facility] Last Admin: 05/24/16 08:20 Dose: 9 unit Insulin Aspart (Novolog) 0 unit SC ACHS [facility] PRN Reason: Protocol Last Admin: 05/24/16 08:18 Dose: 1 unit Insulin Glargine (Lantus) 17 unit SC ACB [facility] Last Admin: 05/24/16 08:16 Dose: 17 units Insulin Glargine (Lantus) 30 unit SC HS [facility] Last Admin: 05/23/16 21:45 Dose: 30 units Ipratropium [place] (Atrovent) 0.5 mg IH RQ4 PRN PRN Reason: SOB Last Admin: 05/20/16 19:49 Dose: 0.5 mg Lamotrigine (Lamictal) 100 mg PO BID [facility] Last Admin: 05/23/16 17:35 Dose: 100 mg Morphine Sulfate (Morphine) 2 mg IV Q4 PRN PRN Reason: Pain, severe (8-10) Last Admin: 05/24/16 03:11 Dose: 2 mg Quetiapine Fumarate (Seroquel) 400 mg PO BID [facility] Last Admin: 05/23/16 17:36 Dose: 400 mg Sertraline HCl (Zoloft) 100 mg PO BID [facility] Last Admin: 05/23/16 17:35 Dose: 100 mg - Labs Labs: 05/22/16 06:00 05/22/16 06:00 - Constitutional Appears: Well, Non-toxic, No Acute Distress - Head Exam Head Exam: ATRAUMATIC, NORMAL INSPECTION - Eye Exam Eye Exam: Normal appearance - ENT Exam ENT Exam: Normal Exam - Neck Exam Additional comments: Tracheostomy in place. - Respiratory Exam Respiratory Exam: Wheezes - Cardiovascular Exam Cardiovascular Exam: +S1, +S2 - Neurological Exam Neurological Exam: Alert, Awake, Oriented x3 - Skin Skin Exam: Dry, Normal Color Assessment and Plan - Assessment and Plan (Free Text) Plan: 1) Chr obstructive pulmonary disease w/ acute lower respiratory infxn Patient is improving switch to PO Abx Patient can be discharged
[2016-05-24] MEDS: Moxifloxacin IV 400mg/250ml NS 250 ML IVPB SCH (09:49)
--- NOTE | 2016-05-24 13:24 | CP.PCM.CON ---
History of Present Illness - History of Present Illness History of Present Illness: CC: shortness of breath, status post tracheostomy/MDR Proteus mirabilis. HPI; 60-year-old female with history off COPD, CHF, hypertension, seizure disorder, sleep apnea syndrome and morbid obesity with anxiety symptoms was brought in by EMS on 05/19/16 with shortness of breath and increasing congestion for the last 2 weeks. Patient has history of multiple admissions of similar nature. She responded to DuoNeb treatments and suctioning which improved the oxygen saturation from 90-99 %. Patient was advised admission because of fevers, chills, generalized body aches. Patient also was stating that her sputum and greenish in color and thick. Chest x-ray on admission 05/19/16 showed perihilar opacities and left pleural effusion questionable edema versus infiltrate. Patient was appropriately cultured and started on IV Zosyn. Patient tolerated Zosyn that she has multiple allergies as noted included also to ceftriaxone. Infectious disease consultation requested by PMD as sputum cultures today reported positive for Proteus mirabilis sensitive only to amikacin and intermediate to Primaxin with BECKA of 8. Patient has a chronic tracheostomy in place. PMH: Anxiety, Asthma, Bipolar Disorder, Bronchitis, CHF, COPD (ASTHMA, EMPHYSEMA ), Depression, HTN, Pneumonia, Seizures, Sleep Apnea Surgical History: Appendectomy, Cholecystectomy Review of Systems - Constitutional Constitutional: Lethargy, Malaise - EENT Ears: absent: Ear Pain - Cardiovascular Cardiovascular: Dyspnea, Pedal Edema - Respiratory Respiratory: Cough, Chest Congestion, Excessive Mucous Production, Change in Mucous Color - Gastrointestinal Gastrointestinal: absent: Abdominal Pain, Diarrhea, Nausea, Vomiting - Genitourinary Genitourinary: absent: Dysuria, Hematuria - Neurological Neurological: absent: Headaches - Hematologic/Lymphatic Hematologic: As Per HPI. absent: Lymphadenopathy Past Patient History - Infectious Disease Hx of Infectious Diseases: None - Tetanus Immunizations Tetanus Immunization: Unknown - Past Medical History & Family History Past Medical History?: Yes - Past Social History Smoking Status: Never Smoked - CARDIAC Hx Congestive Heart Failure: Yes Hx Hypertension: Yes - PULMONARY Hx Chronic Obstructive Pulmonary Disease (COPD): Yes - NEUROLOGICAL Hx Seizures: Yes - HEENT Hx HEENT Problems: Yes Hx Cataracts: Yes - RENAL Hx Chronic Kidney Disease: No - ENDOCRINE/METABOLIC Hx Hypothyroidism: No - HEMATOLOGICAL/ONCOLOGICAL Hx Human Immunodeficiency Virus (HIV): No - INTEGUMENTARY Hx Dermatological Problems: No - MUSCULOSKELETAL/RHEUMATOLOGICAL Hx Falls: Yes - GASTROINTESTINAL Hx Gastrointestinal Disorders: Yes Other/Comment: cholecystectomy - GENITOURINARY/GYNECOLOGICAL Hx Sexually Transmitted Disorders: No - PSYCHIATRIC Hx Substance Use: No - SURGICAL HISTORY Hx Appendectomy: Yes Hx Cholecystectomy: Yes Hx Hysterectomy: Yes (age 26) - ANESTHESIA Hx Anesthesia: Yes Hx Anesthesia Reactions: No Hx Malignant Hyperthermia: No Meds Allergies/Adverse Reactions: Allergies Allergy/AdvReac Type Severity Reaction Status Date / Time aspirin Allergy ANAPHYLAXIS Verified 05/19/16 19:24 ceftriaxone sodium Allergy ANAPHYLAXIS Verified 05/19/16 19:24 [From Rocephin] ibuprofen [From Motrin] Allergy ANAPHYLAXIS Verified 05/19/16 19:24 iodine Allergy ANAPHYLAXIS Verified 05/19/16 19:24 raspberry Allergy ANAPHYLAXIS Verified 05/19/16 19:24 - Medications Medications: Current Medications Acetaminophen (Tylenol 325mg Tab) 650 mg PO Q6 PRN PRN Reason: Pain, moderate (4-7) Last Admin: 05/20/16 18:30 Dose: 650 mg Gabapentin (Neurontin) 800 mg PO TID [facility] Last Admin: 05/24/16 09:49 Dose: 800 mg Piperacillin Sod/Tazobactam Sod (Zosyn 3.375 Gm Iv Premix) 50 mls @ 100 mls/hr IVPB Q8H [facility] Last Admin: 05/24/16 06:06 Dose: 100 mls/hr Insulin Aspart (Novolog) 9 unit SC TIDAC [facility] Last Admin: 05/24/16 12:05 Dose: 9 unit Insulin Aspart (Novolog) 0 unit SC ACHS [facility] PRN Reason: Protocol Last Admin: 05/24/16 12:04 Dose: 1 unit Insulin Glargine (Lantus) 17 unit SC ACB [facility] Last Admin: 05/24/16 08:16 Dose: 17 units Insulin Glargine (Lantus) 30 unit SC HS [facility] Last Admin: 05/23/16 21:45 Dose: 30 units Ipratropium [place] (Atrovent) 0.5 mg IH RQ4 PRN PRN Reason: SOB Last Admin: 05/20/16 19:49 Dose: 0.5 mg Lamotrigine (Lamictal) 100 mg PO BID [facility] Last Admin: 03/29/17 09:49 Dose: 100 mg Morphine Sulfate (Morphine) 2 mg IV Q4 PRN PRN Reason: Pain, severe (8-10) Last Admin: 05/24/16 09:48 Dose: 2 mg Quetiapine Fumarate (Seroquel) 400 mg PO BID [facility] Last Admin: 05/24/16 09:49 Dose: 400 mg Sertraline HCl (Zoloft) 100 mg PO BID [facility] Last Admin: 05/24/16 09:49 Dose: 100 mg Physical Exam - Head Exam Head Exam: NORMAL INSPECTION - Eye Exam Eye Exam: EOMI, PERRL - ENT Exam ENT Exam: Mucous Membranes Moist (TRACHEOSTOMY IN PLACE; THICK SECRETIONS.) - Neck Exam Neck exam: Positive for: Normal Inspection. Negative for: Thyromegaly - Respiratory Exam Respiratory Exam: Rhonchi, Wheezes - Cardiovascular Exam Cardiovascular Exam: Tachycardia, REGULAR RHYTHM, +S1, +S2 - GI/Abdominal Exam GI & Abdominal Exam: Normal Bowel Sounds, Soft (.) - Extremities Exam Extremities exam: Positive for: pedal edema, pedal pulses present. Negative for : calf tenderness - Neurological Exam Neurological exam: Alert, CN II-XII Intact, Oriented x3, Reflexes Normal - Psychiatric Exam Psychiatric exam: Normal Mood - Skin Skin Exam: Normal Color, Warm Results - Vital Signs Recent Vital Signs: Last Vital Signs Temp 98.3 F 05/24/16 09:17 Pulse 83 05/24/16 11:41 Resp 20 05/24/16 09:17 BP 136/80 05/24/16 09:17 Pulse Ox 93 L 05/24/16 11:41 - Labs Result Diagrams: 05/25/16 06:55 05/25/16 06:54 Labs: Laboratory Results - last 24 hr 05/23/16 05/23/16 05/24/16 16:30 21:03 06:22 POC Glucose (mg/dL) 171 H 219 H 155 H 05/24/16 11:25 POC Glucose (mg/dL) 195 H - Imaging and Cardiology Chest x-ray Status: Report reviewed by me (chest x-ray 05/19/16 ill-defined perihilar opacities. Small left pleural effusion. Questionable early pulmonary edema.) Assessment & Plan - Assessment and Plan (Free Text) Assessment: IMPRESSION; -EXASCERBATION OF COPD/S/P TRACHEOSTOMY. -ACUTE LOWER RESPIRATORY TRACT INFECTION (MDR PROTEUS MIRABLIS INFECTION ). -DIABETES MELLITUS. -HTN. PLAN; PANCULTURE. STRICT ISOLATION. D/C IV ZOSYN. START IV AMIKACIN 1000MG IV STAT DOSE.05/24/16. START IV MERREM 500MG IV Q 8HRLY 05/24/16. SUCTION PRN TRACHEOSTOMY CARE.
[2016-05-24] MEDS ORDERED: Meropenem 500 MG in Sodium Chloride 0.9% 100 ML IVPB SCH (14:00)
[2016-05-24] MEDS ORDERED: Amikacin Sulfate 1,000 MG in Sodium Chloride 0.9% 250 ML IVPB SCH (15:00)
[2016-05-24] MEDS: Amikacin Sulfate 1,000 MG in Sodium Chloride 0.9% 250 ML IVPB ONE ×2 (18:18→19:11)
[2016-05-24] MEDS: Meropenem 500 MG in Sodium Chloride 0.9% 100 ML IVPB SCH (18:24)
[2016-05-24] MEDS ORDERED: Amikacin Sulfate 1,000 MG in Sodium Chloride 0.9% 250 ML IVPB ONE (21:00)
[2016-05-24] MEDS: guaiFENesin 600 mg ER Tab PO SCH (21:38)
--- NOTE | 2016-05-24 22:43 | CP.PCM.PN ---
Subjective - Date & Time of Evaluation Date of Evaluation: 05/23/16 Time of Evaluation: 13:43 - Subjective Subjective: Patient seen and examined at bedside today. The patient reports mild improvement , but still reports a productive cough with sputum production, but says that she feels as if the congestion has very mildly improved. The patient's tracheostomy is patent, skin near the ostomy is clean, dry, and intact w/ no inflammation or exudates present. Pt currently denies chest pain, palpitations, n/v/f/c at this time. Objective - Vital Signs/Intake and Output Vital Signs (last 24 hours): Temp Pulse Resp BP Pulse Ox 98.6 F 78 20 122/78 96 05/24/16 15:30 05/24/16 16:12 05/24/16 15:30 05/24/16 15:30 05/24/16 15:30 Intake and Output: 05/24/16 05/25/16 18:59 06:59 Intake Total 480 350 Balance 480 350 - Medications Medications: Current Medications Acetaminophen (Tylenol 325mg Tab) 650 mg PO Q6 PRN PRN Reason: Pain, moderate (4-7) Last Admin: 05/20/16 18:30 Dose: 650 mg Gabapentin (Neurontin) 800 mg PO TID [facility] Last Admin: 05/24/16 17:15 Dose: 800 mg Guaifenesin (Mucinex [place]) 600 mg PO BID [facility] Last Admin: 05/24/16 21:38 Dose: Not Given Meropenem 500 mg/ Sodium (Chloride) 100 mls @ 100 mls/hr IVPB Q8H [facility] Last Admin: 05/24/16 18:24 Dose: 100 mls/hr Insulin Aspart (Novolog) 9 unit SC TIDAC [facility] Last Admin: 05/24/16 18:19 Dose: Not Given Insulin Aspart (Novolog) 0 unit SC ACHS [facility] PRN Reason: Protocol Last Admin: 05/24/16 21:38 Dose: Not Given Insulin Glargine (Lantus) 17 unit SC ACB [facility] Last Admin: 05/24/16 08:16 Dose: 17 units Insulin Glargine (Lantus) 30 unit SC HS [facility] Last Admin: 05/24/16 21:37 Dose: 30 units Ipratropium [place] (Atrovent) 0.5 mg IH RQ4 PRN PRN Reason: SOB Last Admin: 05/20/16 19:49 Dose: 0.5 mg Lamotrigine (Lamictal) 100 mg PO BID [facility] Last Admin: 05/24/16 17:16 Dose: 100 mg Morphine Sulfate (Morphine) 2 mg IV Q4 PRN PRN Reason: Pain, severe (8-10) Last Admin: 05/24/16 19:10 Dose: 2 mg Quetiapine Fumarate (Seroquel) 400 mg PO BID [facility] Last Admin: 05/24/16 17:16 Dose: 400 mg Sertraline HCl (Zoloft) 100 mg PO BID [facility] Last Admin: 05/24/16 17:17 Dose: 100 mg - Labs Labs: 05/22/16 06:00 05/22/16 06:00 - Constitutional Appears: No Acute Distress - Head Exam Head Exam: ATRAUMATIC, NORMAL INSPECTION, NORMOCEPHALIC - Eye Exam Eye Exam: EOMI, Normal appearance, PERRL Pupil Exam: NORMAL ACCOMODATION, PERRL - Respiratory Exam Respiratory Exam: Clear to Ausculation Bilateral, NORMAL BREATHING PATTERN - Cardiovascular Exam Cardiovascular Exam: REGULAR RHYTHM, +S1, +S2. absent: Murmur - GI/Abdominal Exam GI & Abdominal Exam: Soft, Normal Bowel Sounds. absent: Tenderness Assessment and Plan - Assessment and Plan (Free Text) Plan: Assessment: EXCERBERATION OF COPD/BRONCHIAL ASTHAMA DM HTN DEPRESSION S/P TRACHEOSTOMY Plan: continue current medical managemnt, continue Abx continue steroids, pulmonary evaluation
--- NOTE | 2016-05-24 22:46 | CP.PCM.PN ---
Subjective - Date & Time of Evaluation Date of Evaluation: 05/24/16 Time of Evaluation: 13:43 - Subjective Subjective: Patient was seen and examined today at bedside, reports that she is feeling better from yesterday. Pt reports that cough is improving and there is a reduction in sputum production. Aure n/v/f/c, chest pain, palpitations, headaches at this time. Objective - Vital Signs/Intake and Output Vital Signs (last 24 hours): Temp Pulse Resp BP Pulse Ox 98.6 F 78 20 122/78 96 05/24/16 15:30 05/24/16 16:12 05/24/16 15:30 05/24/16 15:30 05/24/16 15:30 Intake and Output: 05/24/16 05/25/16 18:59 06:59 Intake Total 480 350 Balance 480 350 - Medications Medications: Current Medications Acetaminophen (Tylenol 325mg Tab) 650 mg PO Q6 PRN PRN Reason: Pain, moderate (4-7) Last Admin: 05/20/16 18:30 Dose: 650 mg Gabapentin (Neurontin) 800 mg PO TID [facility] Last Admin: 05/24/16 17:15 Dose: 800 mg Guaifenesin (Mucinex La) 600 mg PO BID [facility] Last Admin: 05/24/16 21:38 Dose: Not Given Meropenem 500 mg/ Sodium (Chloride) 100 mls @ 100 mls/hr IVPB Q8H [facility] Last Admin: 05/24/16 18:24 Dose: 100 mls/hr Insulin Aspart (Novolog) 9 unit SC TIDAC [facility] Last Admin: 05/24/16 18:19 Dose: Not Given Insulin Aspart (Novolog) 0 unit SC ACHS [facility] PRN Reason: Protocol Last Admin: 05/24/16 21:38 Dose: Not Given Insulin Glargine (Lantus) 17 unit SC ACB [facility] Last Admin: 05/24/16 08:16 Dose: 17 units Insulin Glargine (Lantus) 30 unit SC HS [facility] Last Admin: 05/24/16 21:37 Dose: 30 units Ipratropium [place] (Atrovent) 0.5 mg IH RQ4 PRN PRN Reason: SOB Last Admin: 05/20/16 19:49 Dose: 0.5 mg Lamotrigine (Lamictal) 100 mg PO BID [facility] Last Admin: 05/24/16 17:16 Dose: 100 mg Morphine Sulfate (Morphine) 2 mg IV Q4 PRN PRN Reason: Pain, severe (8-10) Last Admin: 05/24/16 19:10 Dose: 2 mg Quetiapine Fumarate (Seroquel) 400 mg PO BID [facility] Last Admin: 05/24/16 17:16 Dose: 400 mg Sertraline HCl (Zoloft) 100 mg PO BID [facility] Last Admin: 05/24/16 17:17 Dose: 100 mg - Labs Labs: 05/22/16 06:00 05/22/16 06:00 - Constitutional Appears: No Acute Distress - Head Exam Head Exam: ATRAUMATIC, NORMAL INSPECTION, NORMOCEPHALIC - Eye Exam Eye Exam: EOMI, Normal appearance, PERRL Pupil Exam: NORMAL ACCOMODATION, PERRL - Respiratory Exam Respiratory Exam: Clear to Ausculation Bilateral, NORMAL BREATHING PATTERN - Cardiovascular Exam Cardiovascular Exam: REGULAR RHYTHM, +S1, +S2. absent: Murmur - GI/Abdominal Exam GI & Abdominal Exam: Soft, Normal Bowel Sounds. absent: Tenderness - Skin Skin Exam: Dry, Intact, Normal Color, Warm Assessment and Plan - Assessment and Plan (Free Text) Plan: Plan: Assessment: EXCERBERATION OF COPD/BRONCHIAL ASTHAMA DM HTN DEPRESSION S/P TRACHEOSTOMY Plan: continue current medical managemnt, continue Abx continue steroids, pulmonary evaluation pt is stable for discharge with PO antibiotics
[2016-05-25] MEDS: Meropenem 500 MG in Sodium Chloride 0.9% 100 ML IVPB SCH ×3 (03:00→20:00)
[2016-05-25 07:12] LABS: HEMATOCRIT 36.6 % (34.0-47.0); MEAN CELL VOLUME 79.8 fL (81.0-99.0); MEAN CORPUSCULAR HEMOGLOBIN 25.5 pg (27.0-31.0); MEAN PLATELET VOLUME 7.8 fL (7.2-11.7); RED CELL DISTRIBUTION WIDTH 15.7 % (11.5-14.5); WHITE BLOOD COUNT 9.8 K/uL (4.8-10.8)
[2016-05-25 07:43] LABS: CHLORIDE 98 mmol/L (98-107); POTASSIUM 4.1 mmol/L (3.6-5.2); SODIUM 141 mmol/L (132-148)
[2016-05-25 07:46] LABS: BLOOD UREA NITROGEN 10 mg/dL (7-17); CARBON DIOXIDE 31 mmol/L (22-30); GFR AFRICAN-AMERICAN > 60; GLUCOSE,RANDOM 196 mg/dL (65-105)
[2016-05-25 07:47] LABS: CALCIUM 8.4 mg/dl (8.6-10.4)
[2016-05-25] MEDS: Ipratropium 0.02% Inhal Soln (0.5 mg/2.5 ml) UD IH PRN ×2 (08:01→12:50)
[2016-05-25] MEDS: (Novolog) Insulin Aspart, Recombinant 100 u/ml 10 ml vial SC SCH ×7 (08:30→21:52)
[2016-05-25] MEDS: (Lantus) Insulin Glargine, Recombinant SC SCH ×2 (08:30→22:07)
--- NOTE | 2016-05-25 09:16 | CP.PCM.PN ---
Subjective - Date & Time of Evaluation Date of Evaluation: 05/25/16 Time of Evaluation: 09:10 - Subjective Subjective: patient seen and examined Patient states breathing and cough much improved Trach aspirate positive for Proteus mirabilis sensitive only to amikacin and intermediate to Primaxin with BECKA off 8. on antibiotics as per infectious disease Objective - Vital Signs/Intake and Output Vital Signs (last 24 hours): Temp Pulse Resp BP Pulse Ox 98.0 F 78 20 115/61 96 05/25/16 07:17 05/25/16 08:00 05/25/16 07:17 05/25/16 07:17 05/25/16 07:17 Intake and Output: 05/25/16 05/25/16 06:59 18:59 Intake Total 350 Balance 350 - Medications Medications: Current Medications Acetaminophen (Tylenol 325mg Tab) 650 mg PO Q6 PRN PRN Reason: Pain, moderate (4-7) Last Admin: 05/20/16 18:30 Dose: 650 mg Gabapentin (Neurontin) 800 mg PO TID [facility] Last Admin: 05/24/16 17:15 Dose: 800 mg Guaifenesin (Mucinex [place]) 600 mg PO BID [facility] Last Admin: 05/24/16 21:38 Dose: Not Given Meropenem 500 mg/ Sodium (Chloride) 100 mls @ 100 mls/hr IVPB Q8H [facility] Last Admin: 05/25/16 03:00 Dose: 100 mls/hr Insulin Aspart (Novolog) 9 unit SC TIDAC [facility] Last Admin: 05/25/16 08:30 Dose: 9 unit Insulin Aspart (Novolog) 0 unit SC ACHS [facility] PRN Reason: Protocol Last Admin: 05/25/16 08:30 Dose: 1 unit Insulin Glargine (Lantus) 17 unit SC ACB [facility] Last Admin: 05/25/16 08:30 Dose: 17 units Insulin Glargine (Lantus) 30 unit SC HS [facility] Last Admin: 05/24/16 21:37 Dose: 30 units Ipratropium [place] (Atrovent) 0.5 mg IH RQ4 PRN PRN Reason: SOB Last Admin: 05/25/16 08:01 Dose: 0.5 mg Lamotrigine (Lamictal) 100 mg PO BID [facility] Last Admin: 05/24/16 17:16 Dose: 100 mg Morphine Sulfate (Morphine) 2 mg IV Q4 PRN PRN Reason: Pain, severe (8-10) Last Admin: 05/25/16 06:40 Dose: 2 mg Quetiapine Fumarate (Seroquel) 400 mg PO BID [facility] Last Admin: 05/24/16 17:16 Dose: 400 mg Sertraline HCl (Zoloft) 100 mg PO BID [facility] Last Admin: 05/24/16 17:17 Dose: 100 mg - Labs Labs: 05/25/16 06:55 05/25/16 06:54 - Head Exam Head Exam: ATRAUMATIC, NORMOCEPHALIC - ENT Exam ENT Exam: Mucous Membranes Moist - Neck Exam Neck Exam: Normal Inspection - Respiratory Exam Respiratory Exam: Rhonchi - Cardiovascular Exam Cardiovascular Exam: REGULAR RHYTHM - GI/Abdominal Exam GI & Abdominal Exam: Soft, Normal Bowel Sounds
[2016-05-25] MEDS: guaiFENesin 600 mg ER Tab PO SCH ×2 (10:46→17:17)
--- NOTE | 2016-05-25 23:46 | CP.PCM.PN ---
Subjective - Date & Time of Evaluation Date of Evaluation: 05/25/16 Time of Evaluation: 23:46 - Subjective Subjective: AFEBRILE, vss STILL COUGHING STATES SECRETIONS THICK AND [place] TRACHEOSTOMY GETS BLOCKED AGAIN AND AGAIN ASKING FOR MORE TREATMENTS/AND CHANGE OF TRACHEOSTOMY COLLAR. Objective - Vital Signs/Intake and Output Vital Signs (last 24 hours): Temp Pulse Resp BP Pulse Ox 98.6 F 80 20 124/80 99 05/25/16 15:57 05/25/16 16:30 05/25/16 15:57 05/25/16 15:57 05/25/16 15:57 Intake and Output: 05/25/16 05/26/16 18:59 06:59 Intake Total 590 580 Balance 590 580 - Medications Medications: Current Medications Acetaminophen (Tylenol 325mg Tab) 650 mg PO Q6 PRN PRN Reason: Pain, moderate (4-7) Last Admin: 05/20/16 18:30 Dose: 650 mg Gabapentin (Neurontin) 800 mg PO TID [facility] Last Admin: 05/25/16 17:17 Dose: 800 mg Guaifenesin (Mucinex La) 600 mg PO BID [facility] Last Admin: 05/25/16 17:17 Dose: 600 mg Meropenem 500 mg/ Sodium (Chloride) 100 mls @ 100 mls/hr IVPB Q8H [facility] Last Admin: 05/25/16 20:00 Dose: 100 mls/hr Insulin Aspart (Novolog) 9 unit SC TIDAC [facility] Last Admin: 05/25/16 17:16 Dose: 9 unit Insulin Aspart (Novolog) 0 unit SC ACHS [facility] PRN Reason: Protocol Last Admin: 05/25/16 21:52 Dose: Not Given Insulin Glargine (Lantus) 17 unit SC ACB [facility] Last Admin: 05/25/16 08:30 Dose: 17 units Insulin Glargine (Lantus) 30 unit SC HS [facility] Last Admin: 05/25/16 22:07 Dose: 30 units Ipratropium [place] (Atrovent) 0.5 mg IH RQ4 PRN PRN Reason: SOB Last Admin: 05/25/16 12:50 Dose: 0.5 mg Lamotrigine (Lamictal) 100 mg PO BID [facility] Last Admin: 05/25/16 17:17 Dose: 100 mg Morphine Sulfate (Morphine) 2 mg IV Q4 PRN PRN Reason: Pain, severe (8-10) Last Admin: 05/25/16 22:06 Dose: 2 mg Quetiapine Fumarate (Seroquel) 400 mg PO BID [facility] Last Admin: 05/25/16 17:17 Dose: 400 mg Sertraline HCl (Zoloft) 100 mg PO BID [facility] Last Admin: 05/25/16 17:18 Dose: 100 mg - Labs Labs: 05/25/16 06:55 05/25/16 06:54 - Constitutional Appears: No Acute Distress, Other (MORBIDLY OBESE, NECK SMALL. tRACHEOSTOMY IN PLACE.) - Head Exam Head Exam: NORMAL INSPECTION - Eye Exam Eye Exam: EOMI, PERRL - ENT Exam ENT Exam: Normal Oropharynx - Respiratory Exam Respiratory Exam: Prolonged Expiratory Phase, Rhonchi - Cardiovascular Exam Cardiovascular Exam: REGULAR RHYTHM, +S1, +S2 - GI/Abdominal Exam GI & Abdominal Exam: Soft, Normal Bowel Sounds (MORBIDLY OBESE.) - Extremities Exam Extremities Exam: Pedal Edema. absent: Calf Tenderness - Neurological Exam Neurological Exam: Awake, CN II-XII Intact, Oriented x3, Reflexes Normal - Psychiatric Exam Psychiatric exam: Normal Mood - Skin Skin Exam: Normal Color, Warm Assessment and Plan - Assessment and Plan (Free Text) Assessment: IMPRESSION; -EXASCERBATION OF COPD/S/P TRACHEOSTOMY. -ACUTE LOWER RESPIRATORY TRACT INFECTION (MDR PROTEUS MIRABLIS INFECTION ). -DIABETES MELLITUS. -HTN. PLAN; PANCULTURE. STRICT ISOLATION. START IV AMIKACIN 1000MG IV STAT DOSE.05/24/16. CONTINUE IV MERREM 500MG IV Q 8HRLY 05/24/16. SUCTION PRN TRACHEOSTOMY CARE. PULMONARY TOILET PER PULMONARY.
[2016-05-26] MEDS: Meropenem 500 MG in Sodium Chloride 0.9% 100 ML IVPB SCH ×3 (02:58→18:22)
[2016-05-26] MEDS: (Novolog) Insulin Aspart, Recombinant 100 u/ml 10 ml vial SC SCH ×7 (08:12→22:09)
[2016-05-26] MEDS: (Lantus) Insulin Glargine, Recombinant SC SCH ×2 (08:12→22:06)
--- NOTE | 2016-05-26 09:15 | CP.PCM.PN ---
Subjective - Date & Time of Evaluation Date of Evaluation: 05/26/16 Time of Evaluation: 08:50 - Subjective Subjective: Pt seen and examined today, no acute distress, no acute events overnight. The pt reports having more secretions today but denies having a productive cough today. The pt denies n/v/f/c, chest pain, palpitations, headache, shortness of breath at this time. Objective - Vital Signs/Intake and Output Vital Signs (last 24 hours): Temp Pulse Resp BP Pulse Ox 98.0 F 75 20 129/68 94 L 05/26/16 07:15 05/26/16 07:15 05/26/16 07:15 05/26/16 07:15 05/26/16 07:15 Intake and Output: 05/26/16 05/26/16 06:59 18:59 Intake Total 580 Output Total 300 Balance 280 - Medications Medications: Current Medications Acetaminophen (Tylenol 325mg Tab) 650 mg PO Q6 PRN PRN Reason: Pain, moderate (4-7) Last Admin: 05/20/16 18:30 Dose: 650 mg Gabapentin (Neurontin) 800 mg PO TID [facility] Last Admin: 05/25/16 17:17 Dose: 800 mg Guaifenesin (Mucinex La) 600 mg PO BID [facility] Last Admin: 05/25/16 17:17 Dose: 600 mg Meropenem 500 mg/ Sodium (Chloride) 100 mls @ 100 mls/hr IVPB Q8H [facility] Last Admin: 05/26/16 02:58 Dose: 100 mls/hr Insulin Aspart (Novolog) 9 unit SC TIDAC [facility] Last Admin: 05/26/16 08:12 Dose: 9 unit Insulin Aspart (Novolog) 0 unit SC ACHS [facility] PRN Reason: Protocol Last Admin: 05/26/16 08:12 Dose: 3 unit Insulin Glargine (Lantus) 17 unit SC ACB [facility] Last Admin: 05/26/16 08:12 Dose: 17 units Insulin Glargine (Lantus) 30 unit SC HS [facility] Last Admin: 05/25/16 22:07 Dose: 30 units Ipratropium [place] (Atrovent) 0.5 mg IH RQ4 PRN PRN Reason: SOB Last Admin: 05/25/16 12:50 Dose: 0.5 mg Lamotrigine (Lamictal) 100 mg PO BID [facility] Last Admin: 05/25/16 17:17 Dose: 100 mg Morphine Sulfate (Morphine) 2 mg IV Q4 PRN PRN Reason: Pain, severe (8-10) Last Admin: 05/26/16 08:15 Dose: 2 mg Quetiapine Fumarate (Seroquel) 400 mg PO BID [facility] Last Admin: 05/25/16 17:17 Dose: 400 mg Sertraline HCl (Zoloft) 100 mg PO BID [facility] Last Admin: 05/25/16 17:18 Dose: 100 mg - Labs Labs: 05/25/16 06:55 05/25/16 06:54 - Constitutional Appears: Well, Non-toxic, No Acute Distress - Head Exam Head Exam: NORMAL INSPECTION - Eye Exam Eye Exam: Normal appearance - Neck Exam Additional comments: Tracheostomy collar in place - Respiratory Exam Respiratory Exam: Wheezes - Cardiovascular Exam Cardiovascular Exam: +S1, +S2 - Neurological Exam Neurological Exam: Alert, Awake, Oriented x3 - Skin Skin Exam: Dry, Normal Color, Warm Assessment and Plan - Assessment and Plan (Free Text) Plan: 1) Chr obstructive pulmonary disease w/ acute lower respiratory infxn Tracheostomy cultured proteus, continue recommednations by ID Continue ostomy care and cleaning will monitor for worsening symptoms
[2016-05-26] MEDS: guaiFENesin 600 mg ER Tab PO SCH ×2 (09:42→17:59)
--- NOTE | 2016-05-26 21:37 | CP.PCM.PN ---
Subjective - Date & Time of Evaluation Date of Evaluation: 05/26/16 Time of Evaluation: 21:36 - Subjective Subjective: AFEBRILE, vss STILL COUGHING STATES COUGH IS MORE DURING NIGHT STATES SECRETIONS THICK AND [place] TRACHEOSTOMY GETS BLOCKED AGAIN AND AGAIN ASKING FOR MORE TREATMENTS/AND CHANGE OF TRACHEOSTOMY COLLAR. Objective - Vital Signs/Intake and Output Vital Signs (last 24 hours): Temp Pulse Resp BP Pulse Ox 97.8 F 75 18 117/64 95 05/26/16 15:00 05/26/16 20:54 05/26/16 15:00 05/26/16 15:00 05/26/16 15:00 - Medications Medications: Current Medications Acetaminophen (Tylenol 325mg Tab) 650 mg PO Q6 PRN PRN Reason: Pain, moderate (4-7) Last Admin: 05/20/16 18:30 Dose: 650 mg Gabapentin (Neurontin) 800 mg PO TID [facility] Last Admin: 05/26/16 17:55 Dose: 800 mg Guaifenesin (Mucinex [place]) 600 mg PO BID [facility] Last Admin: 05/26/16 17:59 Dose: 600 mg Meropenem 500 mg/ Sodium (Chloride) 100 mls @ 100 mls/hr IVPB Q8H [facility] Last Admin: 05/26/16 18:22 Dose: 100 mls/hr Insulin Aspart (Novolog) 9 unit SC TIDAC [facility] Last Admin: 05/26/16 11:58 Dose: 9 unit Insulin Aspart (Novolog) 0 unit SC ACHS [facility] PRN Reason: Protocol Last Admin: 05/26/16 16:55 Dose: Not Given Insulin Glargine (Lantus) 17 unit SC ACB [facility] Last Admin: 05/26/16 08:12 Dose: 17 units Insulin Glargine (Lantus) 30 unit SC HS [facility] Last Admin: 05/25/16 22:07 Dose: 30 units Ipratropium [place] (Atrovent) 0.5 mg IH RQ4 PRN PRN Reason: SOB Last Admin: 05/25/16 12:50 Dose: 0.5 mg Lamotrigine (Lamictal) 100 mg PO BID [facility] Last Admin: 05/26/16 09:30 Dose: 100 mg Morphine Sulfate (Morphine) 2 mg IV Q4 PRN PRN Reason: Pain, severe (8-10) Last Admin: 05/26/16 18:04 Dose: 2 mg Quetiapine Fumarate (Seroquel) 400 mg PO BID [facility] Last Admin: 05/26/16 17:57 Dose: 400 mg Sertraline HCl (Zoloft) 100 mg PO BID [facility] Last Admin: 05/26/16 09:31 Dose: 100 mg - Labs Labs: 05/25/16 06:55 05/25/16 06:54 - Constitutional Appears: No Acute Distress - Head Exam Head Exam: NORMAL INSPECTION - Eye Exam Eye Exam: EOMI, PERRL - ENT Exam ENT Exam: Normal Oropharynx - Neck Exam Neck Exam: Normal Inspection - Respiratory Exam Respiratory Exam: Prolonged Expiratory Phase, Rhonchi - Cardiovascular Exam Cardiovascular Exam: REGULAR RHYTHM, +S1, +S2 - GI/Abdominal Exam GI & Abdominal Exam: Soft, Normal Bowel Sounds. absent: Organomegaly (MORBIDLY OBESE, MULTIPLE SKIN FOLDS.) - Extremities Exam Extremities Exam: Normal Capillary Refill, Pedal Edema. absent: Calf Tenderness - Neurological Exam Neurological Exam: Alert, Awake, CN II-XII Intact, Oriented x3, Reflexes Normal - Psychiatric Exam Psychiatric exam: Normal Mood - Skin Skin Exam: Normal Color, Warm Assessment and Plan - Assessment and Plan (Free Text) Assessment: IMPRESSION; -EXASCERBATION OF COPD/S/P TRACHEOSTOMY. -ACUTE LOWER RESPIRATORY TRACT INFECTION (MDR PROTEUS MIRABLIS INFECTION ). -DIABETES MELLITUS. -HTN. - MODERATE OBESITY. PLAN; PANCULTURE. STRICT ISOLATION. START IV AMIKACIN 1000MG IV STAT DOSE.05/24/16. CONTINUE IV MERREM 500MG IV Q 8HRLY 05/24/16. SUCTION PRN TRACHEOSTOMY CARE . CONFERED WITH STAFF TO CONVEY TO PULMONARY FOR CHANGE OFF TRACH COLLAR PATIENT REQUESTING. PULMONARY TOILET PER PULMONARY.
--- NOTE | 2016-05-26 23:54 | CP.PCM.PN ---
Subjective - Date & Time of Evaluation Date of Evaluation: 05/25/16 Time of Evaluation: 13:45 - Subjective Subjective: patient seen and examined , still coughing, she complains of being anxious Patient states breathing and cough much improved Trach aspirate positive for Proteus mirabilis sensitive only to amikacin and intermediate to Primaxin with BECKA off 8. on antibiotics as per infectious disease Objective - Vital Signs/Intake and Output Vital Signs (last 24 hours): Temp Pulse Resp BP Pulse Ox 97.8 F 75 18 117/64 95 05/26/16 15:00 05/26/16 20:54 05/26/16 15:00 05/26/16 15:00 05/26/16 15:00 - Medications Medications: Current Medications Acetaminophen (Tylenol 325mg Tab) 650 mg PO Q6 PRN PRN Reason: Pain, moderate (4-7) Last Admin: 05/20/16 18:30 Dose: 650 mg Gabapentin (Neurontin) 800 mg PO TID [facility] Last Admin: 05/26/16 17:55 Dose: 800 mg Guaifenesin (Mucinex [place]) 600 mg PO BID [facility] Last Admin: 05/26/16 17:59 Dose: 600 mg Meropenem 500 mg/ Sodium (Chloride) 100 mls @ 100 mls/hr IVPB Q8H [facility] Last Admin: 05/26/16 18:22 Dose: 100 mls/hr Insulin Aspart (Novolog) 9 unit SC TIDAC [facility] Last Admin: 05/26/16 16:30 Dose: 9 unit Insulin Aspart (Novolog) 0 unit SC ACHS [facility] PRN Reason: Protocol Last Admin: 05/26/16 22:09 Dose: Not Given Insulin Glargine (Lantus) 17 unit SC ACB [facility] Last Admin: 05/26/16 08:12 Dose: 17 units Insulin Glargine (Lantus) 30 unit SC HS [facility] Last Admin: 05/26/16 22:06 Dose: 30 units Ipratropium [place] (Atrovent) 0.5 mg IH RQ4 PRN PRN Reason: SOB Last Admin: 05/25/16 12:50 Dose: 0.5 mg Lamotrigine (Lamictal) 100 mg PO BID [facility] Last Admin: 05/26/16 18:00 Dose: 100 mg Morphine Sulfate (Morphine) 2 mg IV Q4 PRN PRN Reason: Pain, severe (8-10) Last Admin: 05/26/16 22:18 Dose: 2 mg Quetiapine Fumarate (Seroquel) 400 mg PO BID [facility] Last Admin: 05/26/16 17:57 Dose: 400 mg Sertraline HCl (Zoloft) 100 mg PO BID [facility] Last Admin: 05/26/16 18:00 Dose: 100 mg - Labs Labs: 05/25/16 06:55 05/25/16 06:54 - Constitutional Appears: No Acute Distress - Head Exam Head Exam: ATRAUMATIC, NORMAL INSPECTION, NORMOCEPHALIC - Eye Exam Eye Exam: EOMI, Normal appearance, PERRL Pupil Exam: NORMAL ACCOMODATION, PERRL - Respiratory Exam Respiratory Exam: Decreased Breath Sounds, Rhonchi, Wheezes - Cardiovascular Exam Cardiovascular Exam: REGULAR RHYTHM, +S1, +S2. absent: Murmur - GI/Abdominal Exam GI & Abdominal Exam: Soft, Normal Bowel Sounds. absent: Tenderness Assessment and Plan - Assessment and Plan (Free Text) Assessment: 1) Chr obstructive pulmonary disease w/ acute lower respiratory infxn Tracheostomy cultured proteus, continue recommednations by ID Continue ostomy care and cleaning will monitor for worsening symptoms antibiotics, antitusives, nebulizer treatment
--- NOTE | 2016-05-26 23:57 | CP.PCM.PN ---
Subjective - Date & Time of Evaluation Date of Evaluation: 05/26/16 Time of Evaluation: 13:46 - Subjective Subjective: Pt seen and examined today, no acute distress, no acute events overnight. The pt reports having more secretions today but denies having a productive cough today. The pt denies n/v/f/c, chest pain, palpitations, headache, shortness of breath at this time. Objective - Vital Signs/Intake and Output Vital Signs (last 24 hours): Temp Pulse Resp BP Pulse Ox 97.8 F 75 18 117/64 95 05/26/16 15:00 05/26/16 20:54 05/26/16 15:00 05/26/16 15:00 05/26/16 15:00 - Medications Medications: Current Medications Acetaminophen (Tylenol 325mg Tab) 650 mg PO Q6 PRN PRN Reason: Pain, moderate (4-7) Last Admin: 05/20/16 18:30 Dose: 650 mg Gabapentin (Neurontin) 800 mg PO TID [facility] Last Admin: 05/26/16 17:55 Dose: 800 mg Guaifenesin (Mucinex La) 600 mg PO BID [facility] Last Admin: 05/26/16 17:59 Dose: 600 mg Meropenem 500 mg/ Sodium (Chloride) 100 mls @ 100 mls/hr IVPB Q8H [facility] Last Admin: 05/26/16 18:22 Dose: 100 mls/hr Insulin Aspart (Novolog) 9 unit SC TIDAC [facility] Last Admin: 05/26/16 16:30 Dose: 9 unit Insulin Aspart (Novolog) 0 unit SC ACHS [facility] PRN Reason: Protocol Last Admin: 05/26/16 22:09 Dose: Not Given Insulin Glargine (Lantus) 17 unit SC ACB [facility] Last Admin: 05/26/16 08:12 Dose: 17 units Insulin Glargine (Lantus) 30 unit SC HS [facility] Last Admin: 05/26/16 22:06 Dose: 30 units Ipratropium [place] (Atrovent) 0.5 mg IH RQ4 PRN PRN Reason: SOB Last Admin: 05/25/16 12:50 Dose: 0.5 mg Lamotrigine (Lamictal) 100 mg PO BID [facility] Last Admin: 05/26/16 18:00 Dose: 100 mg Morphine Sulfate (Morphine) 2 mg IV Q4 PRN PRN Reason: Pain, severe (8-10) Last Admin: 05/26/16 22:18 Dose: 2 mg Quetiapine Fumarate (Seroquel) 400 mg PO BID [facility] Last Admin: 05/26/16 17:57 Dose: 400 mg Sertraline HCl (Zoloft) 100 mg PO BID [facility] Last Admin: 05/26/16 18:00 Dose: 100 mg - Labs Labs: 05/25/16 06:55 05/25/16 06:54 - Constitutional Appears: No Acute Distress, Chronically Ill - Head Exam Head Exam: ATRAUMATIC, NORMAL INSPECTION, NORMOCEPHALIC - Eye Exam Eye Exam: EOMI, Normal appearance, PERRL Pupil Exam: NORMAL ACCOMODATION, PERRL - Respiratory Exam Respiratory Exam: Decreased Breath Sounds, Rhonchi, Wheezes - Cardiovascular Exam Cardiovascular Exam: REGULAR RHYTHM, +S1, +S2. absent: Murmur - GI/Abdominal Exam GI & Abdominal Exam: Soft, Normal Bowel Sounds. absent: Tenderness Assessment and Plan - Assessment and Plan (Free Text) Assessment: Acute excerberation of astmam tracheostomy tube anxiety and depression
[2016-05-27] MEDS: Meropenem 500 MG in Sodium Chloride 0.9% 100 ML IVPB SCH ×3 (02:31→19:00)
--- NOTE | 2016-05-27 06:37 | CARD ---
APPROVED REPORT EKG Measurement Heart [id number] <Conclusion> Normal sinus rhythm Normal ECG
[2016-05-27] MEDS: (Novolog) Insulin Aspart, Recombinant 100 u/ml 10 ml vial SC SCH ×7 (07:22→23:38)
[2016-05-27] MEDS: (Lantus) Insulin Glargine, Recombinant SC SCH ×2 (07:55→21:56)
[2016-05-27] MEDS: guaiFENesin 600 mg ER Tab PO SCH ×2 (09:16→18:00)
[2016-05-27] MEDS: Ipratropium 0.02% Inhal Soln (0.5 mg/2.5 ml) UD IH PRN (14:18)
[2016-05-27] MEDS: Ipratropium 0.02% Inhal Soln (0.5 mg/2.5 ml) UD IH SCH (19:11)
[2016-05-27] MEDS: Albuterol 0.042% Inhal Sol (1.25 mg/3 mL) UD INH SCH (19:11)
[2016-05-28] MEDS: Ipratropium 0.02% Inhal Soln (0.5 mg/2.5 ml) UD IH SCH ×4 (01:21→19:41)
[2016-05-28] MEDS: Albuterol 0.042% Inhal Sol (1.25 mg/3 mL) UD INH SCH ×4 (01:21→19:41)
[2016-05-28] MEDS: Meropenem 500 MG in Sodium Chloride 0.9% 100 ML IVPB SCH ×3 (02:39→19:50)
[2016-05-28] MEDS: (Lantus) Insulin Glargine, Recombinant SC SCH ×2 (08:16→21:58)
[2016-05-28] MEDS: (Novolog) Insulin Aspart, Recombinant 100 u/ml 10 ml vial SC SCH ×7 (08:17→21:57)
[2016-05-28] MEDS: guaiFENesin 600 mg ER Tab PO SCH ×2 (11:30→18:22)
[2016-05-28] MEDS: MethylPREDNISolone 40 mg Vial IM STA ×2 (12:15→12:26)
[2016-05-28] MEDS ORDERED: MethylPREDNISolone 40 mg Vial IVP STA (12:18)
--- NOTE | 2016-05-28 12:33 | RAD ---
HISTORY: pna COMPARISON: Comparison is made to 05/19/2016 FINDINGS: LUNGS: Persistent reticular and reticulonodular opacities more prominent at the left lung. Findings suspicious for infectious process. The tracheostomy tube seen in place. . PLEURA: No evidence of significant pleural effusion or pneumothorax. CARDIOVASCULAR: Normal. OSSEOUS STRUCTURES: No significant abnormalities. VISUALIZED UPPER ABDOMEN: Normal. OTHER FINDINGS: None. IMPRESSION: Persistent reticular and reticulonodular opacities slightly worse on the left lung.
[2016-05-28] MEDS: MethylPREDNISolone 40 mg Vial IVP SCH (21:57)
--- NOTE | 2016-05-28 23:25 | CP.PCM.PN ---
Subjective - Date & Time of Evaluation Date of Evaluation: 05/27/16 Time of Evaluation: 09:49 - Subjective Subjective: Pt is seen and examined, is congested, wheezing, is anxious and seems depressed.her shortness of breath has improved Objective - Vital Signs/Intake and Output Vital Signs (last 24 hours): Temp Pulse Resp BP Pulse Ox 97.5 F L 77 20 132/85 94 L 05/28/16 15:39 05/28/16 15:39 05/28/16 15:39 05/28/16 15:39 05/28/16 15:39 Intake and Output: 05/28/16 05/29/16 18:59 06:59 Intake Total 580 500 Balance 580 500 - Medications Medications: Current Medications Acetaminophen (Tylenol 325mg Tab) 650 mg PO Q6 PRN PRN Reason: Pain, moderate (4-7) Last Admin: 05/28/16 08:40 Dose: 650 mg Albuterol Sulfate (Albuterol 0.042% Inhal Liz (1.25mg/3ml) Ud) 1.25 mg INH RQ6 [facility] Last Admin: 05/28/16 19:41 Dose: 1.25 mg Gabapentin (Neurontin) 800 mg PO TID [facility] Last Admin: 05/28/16 18:50 Dose: 800 mg Guaifenesin (Mucinex La) 600 mg PO BID [facility] Last Admin: 05/28/16 18:22 Dose: 600 mg Meropenem 500 mg/ Sodium (Chloride) 100 mls @ 100 mls/hr IVPB Q8H [facility] Last Admin: 05/28/16 19:50 Dose: 100 mls/hr Insulin Aspart (Novolog) 9 unit SC TIDAC [facility] Last Admin: 05/28/16 17:10 Dose: 9 unit Insulin Aspart (Novolog) 0 unit SC ACHS [facility] PRN Reason: Protocol Last Admin: 05/28/16 21:57 Dose: Not Given Insulin Glargine (Lantus) 17 unit SC ACB [facility] Last Admin: 05/28/16 08:16 Dose: Not Given Insulin Glargine (Lantus) 30 unit SC HS [facility] Last Admin: 05/28/16 21:58 Dose: 30 units Ipratropium [place] (Atrovent) 0.5 mg IH RQ6 [facility] Last Admin: 05/28/16 19:41 Dose: 0.5 mg Lamotrigine (Lamictal) 100 mg PO BID [facility] Last Admin: 05/28/16 18:22 Dose: 100 mg Methylprednisolone (Solu-Medrol) 40 mg IVP Q12 [facility] Last Admin: 05/28/16 21:57 Dose: 40 mg Morphine Sulfate (Morphine) 2 mg IVP Q4 PRN PRN Reason: Pain, moderate (4-7) Last Admin: 05/28/16 18:38 Dose: 2 mg Quetiapine Fumarate (Seroquel) 400 mg PO BID [facility] Last Admin: 05/28/16 18:22 Dose: 400 mg Sertraline HCl (Zoloft) 100 mg PO BID [facility] Last Admin: 05/28/16 18:22 Dose: 100 mg - Labs Labs: 05/25/16 06:55 05/25/16 06:54 - Constitutional Appears: Chronically Ill - Head Exam Head Exam: ATRAUMATIC, NORMAL INSPECTION, NORMOCEPHALIC - Eye Exam Eye Exam: EOMI, Normal appearance, PERRL Pupil Exam: NORMAL ACCOMODATION, PERRL - ENT Exam Additional comments: tracheostomy clean - Respiratory Exam Respiratory Exam: Decreased Breath Sounds, Wheezes, NORMAL BREATHING PATTERN - Cardiovascular Exam Cardiovascular Exam: REGULAR RHYTHM, +S1, +S2. absent: Murmur - Psychiatric Exam Psychiatric exam: Anxious, Depressed Assessment and Plan - Assessment and Plan (Free Text) Assessment: IMPRESSION; -EXASCERBATION OF COPD/S/P TRACHEOSTOMY. -ACUTE LOWER RESPIRATORY TRACT INFECTION (MDR PROTEUS MIRABLIS INFECTION ). -DIABETES MELLITUS. -HTN. - MODERATE OBESITY. PLAN; PANCULTURE. STRICT ISOLATION. START IV AMIKACIN 1000MG IV STAT DOSE.05/24/16. CONTINUE IV MERREM 500MG IV Q 8HRLY 05/24/16. SUCTION PRN TRACHEOSTOMY CARE . CONFERED WITH STAFF TO CONVEY TO PULMONARY FOR CHANGE OFF TRACH COLLAR PATIENT REQUESTING. PULMONARY TOILET PER PULMONARY.
--- NOTE | 2016-05-28 23:44 | CP.PCM.PN ---
Subjective - Date & Time of Evaluation Date of Evaluation: 05/28/16 Time of Evaluation: 09:51 - Subjective Subjective: Pt seen & examined, is c/o back pain, is asking for pain killers, is afebrile. on antibiotics and medical managment, tracheostomy care Objective - Vital Signs/Intake and Output Vital Signs (last 24 hours): Temp Pulse Resp BP Pulse Ox 97.5 F L 77 20 132/85 94 L 05/28/16 15:39 05/28/16 15:39 05/28/16 15:39 05/28/16 15:39 05/28/16 15:39 Intake and Output: 05/28/16 05/29/16 18:59 06:59 Intake Total 580 500 Balance 580 500 - Medications Medications: Current Medications Acetaminophen (Tylenol 325mg Tab) 650 mg PO Q6 PRN PRN Reason: Pain, moderate (4-7) Last Admin: 05/28/16 08:40 Dose: 650 mg Albuterol Sulfate (Albuterol 0.042% Inhal Liz (1.25mg/3ml) Ud) 1.25 mg INH RQ6 [facility] Last Admin: 05/28/16 19:41 Dose: 1.25 mg Gabapentin (Neurontin) 800 mg PO TID [facility] Last Admin: 05/28/16 18:50 Dose: 800 mg Guaifenesin (Mucinex La) 600 mg PO BID [facility] Last Admin: 05/28/16 18:22 Dose: 600 mg Meropenem 500 mg/ Sodium (Chloride) 100 mls @ 100 mls/hr IVPB Q8H [facility] Last Admin: 05/28/16 19:50 Dose: 100 mls/hr Insulin Aspart (Novolog) 9 unit SC TIDAC [facility] Last Admin: 05/28/16 17:10 Dose: 9 unit Insulin Aspart (Novolog) 0 unit SC ACHS [facility] PRN Reason: Protocol Last Admin: 05/28/16 21:57 Dose: Not Given Insulin Glargine (Lantus) 17 unit SC ACB [facility] Last Admin: 05/28/16 08:16 Dose: Not Given Insulin Glargine (Lantus) 30 unit SC HS [facility] Last Admin: 05/28/16 21:58 Dose: 30 units Ipratropium [place] (Atrovent) 0.5 mg IH RQ6 [facility] Last Admin: 05/28/16 19:41 Dose: 0.5 mg Lamotrigine (Lamictal) 100 mg PO BID [facility] Last Admin: 05/28/16 18:22 Dose: 100 mg Methylprednisolone (Solu-Medrol) 40 mg IVP Q12 [facility] Last Admin: 05/28/16 21:57 Dose: 40 mg Morphine Sulfate (Morphine) 2 mg IVP Q4 PRN PRN Reason: Pain, moderate (4-7) Last Admin: 05/28/16 18:38 Dose: 2 mg Quetiapine Fumarate (Seroquel) 400 mg PO BID [facility] Last Admin: 05/28/16 18:22 Dose: 400 mg Sertraline HCl (Zoloft) 100 mg PO BID [facility] Last Admin: 05/28/16 18:22 Dose: 100 mg - Labs Labs: 05/25/16 06:55 05/25/16 06:54 - Constitutional Appears: No Acute Distress - Head Exam Head Exam: ATRAUMATIC, NORMAL INSPECTION, NORMOCEPHALIC - ENT Exam ENT Exam: Mucous Membranes Moist, Normal Exam - Respiratory Exam Respiratory Exam: Clear to Ausculation Bilateral, NORMAL BREATHING PATTERN - Cardiovascular Exam Cardiovascular Exam: REGULAR RHYTHM, +S1, +S2. absent: Murmur Assessment and Plan - Assessment and Plan (Free Text) Assessment: 1) Chr obstructive pulmonary disease w/ acute lower respiratory infxn Tracheostomy cultured proteus, continue recommednations by ID Continue ostomy care and cleaning will monitor for worsening symptoms Diabtes: ANxiety/ Depression Back pain
[2016-05-29] MEDS: Albuterol 0.042% Inhal Sol (1.25 mg/3 mL) UD INH SCH ×4 (01:14→19:59)
[2016-05-29] MEDS: Ipratropium 0.02% Inhal Soln (0.5 mg/2.5 ml) UD IH SCH ×4 (01:15→19:59)
[2016-05-29] MEDS: Meropenem 500 MG in Sodium Chloride 0.9% 100 ML IVPB SCH ×3 (02:12→19:41)
[2016-05-29] MEDS: (Novolog) Insulin Aspart, Recombinant 100 u/ml 10 ml vial SC SCH ×7 (08:26→21:42)
[2016-05-29] MEDS: (Lantus) Insulin Glargine, Recombinant SC SCH ×2 (08:26→21:42)
[2016-05-29] MEDS: guaiFENesin 600 mg ER Tab PO SCH ×2 (10:59→17:04)
[2016-05-29] MEDS: MethylPREDNISolone 40 mg Vial IVP SCH ×2 (11:05→21:42)
--- NOTE | 2016-05-29 14:16 | CP.PCM.PN ---
Subjective - Date & Time of Evaluation Date of Evaluation: 05/29/16 Time of Evaluation: 10:15 - Subjective Subjective: Pt seen and examined in bed. Pt is no acute distress and reports no events overnight. Pt continues to have persistent heavy secretions without productive cough. Pt denies chest pain, palpitations, headache, N/V, fever, chills, and shortness of breath. Objective - Vital Signs/Intake and Output Vital Signs (last 24 hours): Temp Pulse Resp BP Pulse Ox 98.7 F 83 20 120/63 95 05/29/16 08:00 05/29/16 08:00 05/29/16 08:00 05/29/16 08:00 05/29/16 08:00 Intake and Output: 05/29/16 05/29/16 06:59 18:59 Intake Total 500 Balance 500 - Medications Medications: Current Medications Acetaminophen (Tylenol 325mg Tab) 650 mg PO Q6 PRN PRN Reason: Pain, moderate (4-7) Last Admin: 05/28/16 08:40 Dose: 650 mg Albuterol Sulfate (Albuterol 0.042% Inhal Liz (1.25mg/3ml) Ud) 1.25 mg INH RQ6 [facility] Last Admin: 05/29/16 08:56 Dose: 1.25 mg Gabapentin (Neurontin) 800 mg PO TID [facility] Guaifenesin (Mucinex La) 600 mg PO BID [facility] Last Admin: 05/29/16 10:59 Dose: 600 mg Meropenem 500 mg/ Sodium (Chloride) 100 mls @ 100 mls/hr IVPB Q8H [facility] Last Admin: 05/29/16 11:08 Dose: 100 mls/hr Insulin Aspart (Novolog) 9 unit SC TIDAC [facility] Last Admin: 05/29/16 12:43 Dose: 9 unit Insulin Aspart (Novolog) 0 unit SC ACHS [facility] PRN Reason: Protocol Last Admin: 05/29/16 12:43 Dose: 3 unit Insulin Glargine (Lantus) 17 unit SC ACB [facility] Last Admin: 05/29/16 08:26 Dose: 17 units Insulin Glargine (Lantus) 30 unit SC HS [facility] Last Admin: 05/28/16 21:58 Dose: 30 units Ipratropium [place] (Atrovent) 0.5 mg IH RQ6 [facility] Last Admin: 05/29/16 08:56 Dose: 0.5 mg Lamotrigine (Lamictal) 100 mg PO BID [facility] Last Admin: 05/29/16 11:00 Dose: 100 mg Methylprednisolone (Solu-Medrol) 40 mg IVP Q12 [facility] Last Admin: 05/29/16 11:05 Dose: 40 mg Morphine Sulfate (Morphine) 2 mg IVP Q4 PRN PRN Reason: Pain, moderate (4-7) Last Admin: 05/29/16 11:22 Dose: 2 mg Quetiapine Fumarate (Seroquel) 400 mg PO BID [facility] Last Admin: 05/29/16 11:00 Dose: 400 mg Sertraline HCl (Zoloft) 100 mg PO BID [facility] Last Admin: 05/29/16 11:00 Dose: 100 mg - Labs Labs: 05/25/16 06:55 05/25/16 06:54 - Constitutional Appears: Older Than Stated Age, Chronically Ill - Head Exam Head Exam: ATRAUMATIC, NORMOCEPHALIC - Eye Exam Eye Exam: Normal appearance, PERRL Pupil Exam: NORMAL ACCOMODATION - ENT Exam ENT Exam: Mucous Membranes Moist - Neck Exam Neck Exam: Full ROM - Respiratory Exam Respiratory Exam: Rhonchi (bibasilar lung perez on coughing), Wheezes ( inspiratory/expiratory in all lung feields). absent: Accessory Muscle Use, Rales, Respiratory Distress - Cardiovascular Exam Cardiovascular Exam: +S1, +S2. absent: Diastolic murmur, Gallop, JVD, Rubs, +S4 , Murmur - GI/Abdominal Exam GI & Abdominal Exam: Soft, Normal Bowel Sounds. absent: Tenderness - Rectal Exam Rectal Exam: Deferred - Back Exam Back Exam: NORMAL INSPECTION - Neurological Exam Neurological Exam: Alert, Awake, Oriented x3 - Psychiatric Exam Psychiatric exam: Normal Affect, Normal Mood - Skin Skin Exam: Dry, Intact, Normal Color, Warm Assessment and Plan - Assessment and Plan (Free Text) Assessment: Chronic Obstructive Pulmonary Disease w/ Lower Respiratory Infection Plan: Sputum cx shows Proteus mirabilis CXR 05/28/16 shows persistent reticular and reticulonodular opacities greater on left than right. Amikacin 1,000 mg IV given once 05/26/16 Continue meropenem 500mg IV q8h, atrovent INH q6h, albuterol INH q6h, and guaifenesin 600mg PO BID Continue isolation Suction PRN Tracheostomy care Pulmonary toilet
--- NOTE | 2016-05-29 23:11 | CP.PCM.PN ---
Subjective - Date & Time of Evaluation Date of Evaluation: 05/29/16 Time of Evaluation: 23:11 - Subjective Subjective: AFEBRILE STATES STILL WITH A LOT OF SECRETIONS WITH THICK GREEN[place] PHLEGM DENIES SHORTNESS OF BREATH. NO CHEST PAIN. wants her tracheostomy to be changed. Objective - Vital Signs/Intake and Output Vital Signs (last 24 hours): Temp Pulse Resp BP Pulse Ox 100.0 F H 80 20 129/79 94 L 05/29/16 15:00 05/29/16 15:00 05/29/16 15:00 05/29/16 15:00 05/29/16 15:00 Intake and Output: 05/29/16 05/30/16 18:59 06:59 Intake Total 600 Balance 600 - Medications Medications: Current Medications Acetaminophen (Tylenol 325mg Tab) 650 mg PO Q6 PRN PRN Reason: Pain, moderate (4-7) Last Admin: 05/28/16 08:40 Dose: 650 mg Albuterol Sulfate (Albuterol 0.042% Inhal Liz (1.25mg/3ml) Ud) 1.25 mg INH RQ6 [facility] Last Admin: 05/29/16 19:59 Dose: 1.25 mg Gabapentin (Neurontin) 800 mg PO TID [facility] Last Admin: 05/29/16 19:42 Dose: 800 mg Guaifenesin (Mucinex [place]) 600 mg PO BID [facility] Last Admin: 05/29/16 17:04 Dose: 600 mg Meropenem 500 mg/ Sodium (Chloride) 100 mls @ 100 mls/hr IVPB Q8H [facility] Last Admin: 05/29/16 19:41 Dose: 100 mls/hr Insulin Aspart (Novolog) 9 unit SC TIDAC [facility] Last Admin: 05/29/16 17:07 Dose: 9 unit Insulin Aspart (Novolog) 0 unit SC ACHS [facility] PRN Reason: Protocol Last Admin: 05/29/16 21:42 Dose: Not Given Insulin Glargine (Lantus) 17 unit SC ACB [facility] Last Admin: 05/29/16 08:26 Dose: 17 units Insulin Glargine (Lantus) 30 unit SC HS [facility] Last Admin: 05/29/16 21:42 Dose: 30 units Ipratropium [place] (Atrovent) 0.5 mg IH RQ6 [facility] Last Admin: 05/29/16 19:59 Dose: 0.5 mg Lamotrigine (Lamictal) 100 mg PO BID [facility] Last Admin: 05/29/16 17:04 Dose: 100 mg Methylprednisolone (Solu-Medrol) 40 mg IVP Q12 [facility] Last Admin: 05/29/16 21:42 Dose: 40 mg Morphine Sulfate (Morphine) 2 mg IVP Q4 PRN PRN Reason: Pain, moderate (4-7) Last Admin: 05/29/16 21:49 Dose: 2 mg Quetiapine Fumarate (Seroquel) 400 mg PO BID [facility] Last Admin: 05/29/16 17:03 Dose: 400 mg Sertraline HCl (Zoloft) 100 mg PO BID [facility] Last Admin: 05/29/16 17:04 Dose: 100 mg - Labs Labs: 05/25/16 06:55 05/25/16 06:54 - Constitutional Appears: No Acute Distress - Head Exam Head Exam: NORMAL INSPECTION - Eye Exam Eye Exam: EOMI, PERRL - ENT Exam ENT Exam: Mucous Membranes Moist - Neck Exam Neck Exam: Normal Inspection - Respiratory Exam Respiratory Exam: Prolonged Expiratory Phase, Rhonchi - Cardiovascular Exam Cardiovascular Exam: REGULAR RHYTHM, +S1, +S2 - GI/Abdominal Exam GI & Abdominal Exam: Soft, Normal Bowel Sounds. absent: Organomegaly - Extremities Exam Extremities Exam: Normal Capillary Refill. absent: Calf Tenderness, Pedal Edema - Neurological Exam Neurological Exam: Awake, Oriented x3, Reflexes Normal - Skin Skin Exam: Normal Color, Warm Assessment and Plan - Assessment and Plan (Free Text) Assessment: IMPRESSION; -EXASCERBATION OF COPD/S/P TRACHEOSTOMY. -ACUTE LOWER RESPIRATORY TRACT INFECTION (MDR PROTEUS MIRABLIS INFECTION ). -DIABETES MELLITUS. -HTN. - MODERATE OBESITY. PLAN; PANCULTURE. STRICT ISOLATION. START IV AMIKACIN 1000MG IV STAT DOSE.05/24/16. CONTINUE IV MERREM 500MG IV Q 8HRLY 05/24/16. SUCTION PRN TRACHEOSTOMY CARE PER PULMONARY. .
--- NOTE | 2016-05-30 00:02 | CP.PCM.PN ---
Subjective - Date & Time of Evaluation Date of Evaluation: 05/30/16 Time of Evaluation: 10:08 - Subjective Subjective: Pt still coughing and congested, she recievd a dose of salmetrol, she is on antibiotics, mucolytics, nebulizer treatment Objective - Vital Signs/Intake and Output Vital Signs (last 24 hours): Temp Pulse Resp BP Pulse Ox 100.0 F H 80 20 129/79 94 L 05/29/16 15:00 05/29/16 15:00 05/29/16 15:00 05/29/16 15:00 05/29/16 15:00 Intake and Output: 05/29/16 05/30/16 18:59 06:59 Intake Total 600 Balance 600 - Medications Medications: Current Medications Acetaminophen (Tylenol 325mg Tab) 650 mg PO Q6 PRN PRN Reason: Pain, moderate (4-7) Last Admin: 05/28/16 08:40 Dose: 650 mg Albuterol Sulfate (Albuterol 0.042% Inhal Liz (1.25mg/3ml) Ud) 1.25 mg INH RQ6 [facility] Last Admin: 05/29/16 19:59 Dose: 1.25 mg Gabapentin (Neurontin) 800 mg PO TID [facility] Last Admin: 05/29/16 19:42 Dose: 800 mg Guaifenesin (Mucinex La) 600 mg PO BID [facility] Last Admin: 05/29/16 17:04 Dose: 600 mg Meropenem 500 mg/ Sodium (Chloride) 100 mls @ 100 mls/hr IVPB Q8H [facility] Last Admin: 05/29/16 19:41 Dose: 100 mls/hr Insulin Aspart (Novolog) 9 unit SC TIDAC [facility] Last Admin: 05/29/16 17:07 Dose: 9 unit Insulin Aspart (Novolog) 0 unit SC ACHS [facility] PRN Reason: Protocol Last Admin: 05/29/16 21:42 Dose: Not Given Insulin Glargine (Lantus) 17 unit SC ACB [facility] Last Admin: 05/29/16 08:26 Dose: 17 units Insulin Glargine (Lantus) 30 unit SC HS [facility] Last Admin: 05/29/16 21:42 Dose: 30 units Ipratropium [place] (Atrovent) 0.5 mg IH RQ6 [facility] Last Admin: 05/29/16 19:59 Dose: 0.5 mg Lamotrigine (Lamictal) 100 mg PO BID [facility] Last Admin: 05/29/16 17:04 Dose: 100 mg Methylprednisolone (Solu-Medrol) 40 mg IVP Q12 [facility] Last Admin: 05/29/16 21:42 Dose: 40 mg Morphine Sulfate (Morphine) 2 mg IVP Q4 PRN PRN Reason: Pain, moderate (4-7) Last Admin: 05/29/16 21:49 Dose: 2 mg Quetiapine Fumarate (Seroquel) 400 mg PO BID [facility] Last Admin: 05/29/16 17:03 Dose: 400 mg Sertraline HCl (Zoloft) 100 mg PO BID [facility] Last Admin: 05/29/16 17:04 Dose: 100 mg - Labs Labs: 05/25/16 06:55 05/25/16 06:54 - Constitutional Appears: No Acute Distress - Head Exam Head Exam: ATRAUMATIC, NORMAL INSPECTION, NORMOCEPHALIC - Respiratory Exam Respiratory Exam: Decreased Breath Sounds, Rales, Rhonchi, Wheezes - Cardiovascular Exam Cardiovascular Exam: REGULAR RHYTHM, +S1, +S2. absent: Murmur - Neurological Exam Neurological Exam: Alert, Awake, Oriented x3 - Psychiatric Exam Psychiatric exam: Normal Affect, Normal Mood Assessment and Plan - Assessment and Plan (Free Text) Assessment: 1) Chr obstructive pulmonary disease w/ acute lower respiratory infxn Tracheostomy cultured proteus, continue recommednations by ID Continue ostomy care and cleaning will monitor for worsening symptoms antibiotics mucolytics salmetrol nebulizer rx Diabtes: ANxiety/ Depression Back pain
[2016-05-30] MEDS: Meropenem 500 MG in Sodium Chloride 0.9% 100 ML IVPB SCH ×3 (02:10→19:28)
[2016-05-30] MEDS: Albuterol 0.042% Inhal Sol (1.25 mg/3 mL) UD INH SCH ×4 (02:10→19:20)
[2016-05-30] MEDS: Ipratropium 0.02% Inhal Soln (0.5 mg/2.5 ml) UD IH SCH ×4 (02:11→19:21)
[2016-05-30] MEDS: (Novolog) Insulin Aspart, Recombinant 100 u/ml 10 ml vial SC SCH ×7 (08:34→21:33)
[2016-05-30] MEDS: (Lantus) Insulin Glargine, Recombinant SC SCH ×2 (08:39→21:17)
--- NOTE | 2016-05-30 10:43 | CP.PCM.PN ---
Subjective - Date & Time of Evaluation Date of Evaluation: 05/30/16 Time of Evaluation: 09:30 - Subjective Subjective: Patient seen and examined in bed. Pt reports feeling better despite persistent mucous production and chest congestion with associated mild shortness of breath. No events overnight per nursing. Pt denies chest pain, headache, palpitations, nausea, vomiting, fever, chills. Objective - Vital Signs/Intake and Output Vital Signs (last 24 hours): Temp Pulse Resp BP Pulse Ox 98.5 F 71 22 134/83 95 05/30/16 08:00 05/30/16 08:00 05/30/16 08:00 05/30/16 08:00 05/30/16 08:00 Intake and Output: 05/30/16 05/30/16 06:59 18:59 Intake Total 420 Balance 420 - Medications Medications: Current Medications Acetaminophen (Tylenol 325mg Tab) 650 mg PO Q6 PRN PRN Reason: Pain, moderate (4-7) Last Admin: 05/28/16 08:40 Dose: 650 mg Albuterol Sulfate (Albuterol 0.042% Inhal Liz (1.25mg/3ml) Ud) 1.25 mg INH RQ6 [facility] Last Admin: 05/30/16 08:31 Dose: 1.25 mg Gabapentin (Neurontin) 800 mg PO TID [facility] Last Admin: 05/29/16 19:42 Dose: 800 mg Guaifenesin (Mucinex La) 600 mg PO BID [facility] Last Admin: 05/29/16 17:04 Dose: 600 mg Meropenem 500 mg/ Sodium (Chloride) 100 mls @ 100 mls/hr IVPB Q8H [facility] Last Admin: 05/30/16 02:10 Dose: 100 mls/hr Insulin Aspart (Novolog) 9 unit SC TIDAC [facility] Last Admin: 05/30/16 08:34 Dose: 9 unit Insulin Aspart (Novolog) 0 unit SC ACHS SHAYLA PRN Reason: Protocol Last Admin: 05/30/16 08:35 Dose: 2 unit Insulin Glargine (Lantus) 17 unit SC ACB [facility] Last Admin: 05/30/16 08:39 Dose: Not Given Insulin Glargine (Lantus) 30 unit SC HS [facility] Last Admin: 05/29/16 21:42 Dose: 30 units Ipratropium [place] (Atrovent) 0.5 mg IH RQ6 [facility] Last Admin: 05/30/16 08:31 Dose: 0.5 mg Lamotrigine (Lamictal) 100 mg PO BID [facility] Last Admin: 05/29/16 17:04 Dose: 100 mg Methylprednisolone (Solu-Medrol) 40 mg IVP Q12 [facility] Last Admin: 05/29/16 21:42 Dose: 40 mg Morphine Sulfate (Morphine) 2 mg IVP Q4 PRN PRN Reason: Pain, moderate (4-7) Last Admin: 05/30/16 08:32 Dose: 2 mg Quetiapine Fumarate (Seroquel) 400 mg PO BID [facility] Last Admin: 05/29/16 17:03 Dose: 400 mg Sertraline HCl (Zoloft) 100 mg PO BID [facility] Last Admin: 05/29/16 17:04 Dose: 100 mg - Labs Labs: 05/25/16 06:55 05/25/16 06:54 - Constitutional Appears: Non-toxic, Older Than Stated Age - Head Exam Head Exam: NORMAL INSPECTION, NORMOCEPHALIC - Eye Exam Eye Exam: Normal appearance Pupil Exam: NORMAL ACCOMODATION - ENT Exam ENT Exam: Mucous Membranes Moist Additional comments: Tracheostomy collar in place. - Neck Exam Neck Exam: Full ROM, Normal Inspection - Respiratory Exam Respiratory Exam: Wheezes, NORMAL BREATHING PATTERN. absent: Rales, Rhonchi - Cardiovascular Exam Cardiovascular Exam: REGULAR RHYTHM, +S1, +S2. absent: Gallop, Rubs, Murmur - GI/Abdominal Exam GI & Abdominal Exam: Soft, Normal Bowel Sounds. absent: Tenderness - Back Exam Back Exam: NORMAL INSPECTION - Neurological Exam Neurological Exam: Alert, Awake, Oriented x3 - Psychiatric Exam Psychiatric exam: Normal Affect, Normal Mood - Skin Skin Exam: Dry, Intact, Normal Color Assessment and Plan - Assessment and Plan (Free Text) Assessment: Chronic Obstructive Pulmonary Disease w/ Lower Respiratory Infection Plan: Patient is stable from pulmonary for discharge. Sputum cx shows Proteus mirabilis CXR 05/28/16 shows persistent reticular and reticulonodular opacities greater on left than right. Amikacin 1,000 mg IV given once 05/26/16 Continue meropenem 500mg IV q8h, atrovent INH q6h, albuterol INH q6h, solumedrol 40mg IVP q12h, and guaifenesin 600mg PO BID Suction PRN. Encouraged patient to cough up mucous. Tracheostomy care Pulmonary toilet
[2016-05-30] MEDS: guaiFENesin 600 mg ER Tab PO SCH ×2 (11:03→17:33)
[2016-05-30] MEDS: MethylPREDNISolone 40 mg Vial IVP SCH ×2 (11:06→21:19)
[2016-05-30 11:10] LABS: HEMATOCRIT 38.9 % (34.0-47.0); MEAN CELL VOLUME 79.5 fL (81.0-99.0); MEAN CORPUSCULAR HEMOGLOBIN 25.3 pg (27.0-31.0); MEAN CORPUSCULAR HGB CONC 31.8 g/dL (33.0-37.0); MEAN PLATELET VOLUME 8.4 fL (7.2-11.7); RED CELL DISTRIBUTION WIDTH 16.2 % (11.5-14.5); WHITE BLOOD COUNT 14.5 K/uL (4.8-10.8)
[2016-05-30 11:26] LABS: CHLORIDE 94 mmol/L (98-107); POTASSIUM 3.9 mmol/L (3.6-5.2); SODIUM 141 mmol/L (132-148)
[2016-05-30 11:28] LABS: GFR AFRICAN-AMERICAN > 60
[2016-05-30 11:29] LABS: BLOOD UREA NITROGEN 16 mg/dL (7-17); CALCIUM 9.4 mg/dl (8.6-10.4); CARBON DIOXIDE 32 mmol/L (22-30); GLUCOSE,RANDOM 198 mg/dL (65-105)
--- NOTE | 2016-05-30 14:18 | CP.PCM.PN ---
Subjective - Date & Time of Evaluation Date of Evaluation: 05/30/16 Time of Evaluation: 14:18 - Subjective Subjective: AFEBRILE FEELING SLIGHTLY BETTER NO SHORTNESS OF BREATH. SECRETIONS LESS DENIES CHEST PAIN, NAUSEA OR VOMITING Objective - Vital Signs/Intake and Output Vital Signs (last 24 hours): Temp Pulse Resp BP Pulse Ox 98.5 F 71 22 134/83 95 05/30/16 08:00 05/30/16 08:00 05/30/16 08:00 05/30/16 08:00 05/30/16 08:00 Intake and Output: 05/30/16 05/30/16 06:59 18:59 Intake Total 420 Balance 420 - Medications Medications: Current Medications Acetaminophen (Tylenol 325mg Tab) 650 mg PO Q6 PRN PRN Reason: Pain, moderate (4-7) Last Admin: 05/28/16 08:40 Dose: 650 mg Albuterol Sulfate (Albuterol 0.042% Inhal Liz (1.25mg/3ml) Ud) 1.25 mg INH RQ6 [facility] Last Admin: 05/30/16 08:31 Dose: 1.25 mg Gabapentin (Neurontin) 800 mg PO TID [facility] Last Admin: 05/30/16 13:37 Dose: 800 mg Guaifenesin (Mucinex La) 600 mg PO BID [facility] Last Admin: 05/30/16 11:03 Dose: 600 mg Meropenem 500 mg/ Sodium (Chloride) 100 mls @ 100 mls/hr IVPB Q8H [facility] Last Admin: 05/30/16 11:02 Dose: 100 mls/hr Insulin Aspart (Novolog) 9 unit SC TIDAC [facility] Last Admin: 05/30/16 12:39 Dose: 9 unit Insulin Aspart (Novolog) 0 unit SC ACHS SHAYLA PRN Reason: Protocol Last Admin: 05/30/16 12:37 Dose: 2 unit Insulin Glargine (Lantus) 17 unit SC ACB [facility] Last Admin: 05/30/16 08:39 Dose: Not Given Insulin Glargine (Lantus) 30 unit SC HS [facility] Last Admin: 05/29/16 21:42 Dose: 30 units Ipratropium [place] (Atrovent) 0.5 mg IH RQ6 [facility] Last Admin: 05/30/16 08:31 Dose: 0.5 mg Lamotrigine (Lamictal) 100 mg PO BID [facility] Last Admin: 05/30/16 11:02 Dose: 100 mg Methylprednisolone (Solu-Medrol) 40 mg IVP Q12 [facility] Last Admin: 05/30/16 11:06 Dose: 40 mg Morphine Sulfate (Morphine) 2 mg IVP Q4 PRN PRN Reason: Pain, moderate (4-7) Last Admin: 05/30/16 08:32 Dose: 2 mg Quetiapine Fumarate (Seroquel) 400 mg PO BID [facility] Last Admin: 05/30/16 11:10 Dose: 400 mg Sertraline HCl (Zoloft) 100 mg PO BID [facility] Last Admin: 05/30/16 11:05 Dose: 100 mg - Labs Labs: 05/30/16 11:06 05/30/16 11:06 - Constitutional Appears: No Acute Distress - Head Exam Additional comments: MORBIDLY OBESE - Eye Exam Eye Exam: EOMI, PERRL - ENT Exam ENT Exam: Mucous Membranes Moist, Normal Oropharynx - Neck Exam Neck Exam: Normal Inspection - Respiratory Exam Respiratory Exam: Rhonchi. absent: Respiratory Distress - Cardiovascular Exam Cardiovascular Exam: REGULAR RHYTHM, +S1, +S2 - Extremities Exam Extremities Exam: Normal Capillary Refill. absent: Calf Tenderness, Pedal Edema - Neurological Exam Neurological Exam: Awake, CN II-XII Intact, Oriented x3, Reflexes Normal - Psychiatric Exam Psychiatric exam: Normal Mood - Skin Skin Exam: Normal Color, Warm Assessment and Plan - Assessment and Plan (Free Text) Assessment: IMPRESSION; -EXASCERBATION OF COPD/S/P TRACHEOSTOMY. -ACUTE LOWER RESPIRATORY TRACT INFECTION (MDR PROTEUS MIRABLIS INFECTION ). -DIABETES MELLITUS. -HTN. - MODERATE OBESITY. PLAN; PANCULTURE. STRICT ISOLATION. START IV AMIKACIN 1000MG IV STAT DOSE.05/24/16. CONTINUE IV MERREM 500MG IV Q 8HRLY 05/24/16. SUCTION PRN TRACHEOSTOMY CARE PER PULMONARY. .
--- NOTE | 2016-05-31 01:06 | CP.PCM.PN ---
Subjective - Date & Time of Evaluation Date of Evaluation: 05/30/16 Time of Evaluation: 10:09 - Subjective Subjective: Pt seen & examined is feeling much better, continue on antibiotics Objective - Vital Signs/Intake and Output Vital Signs (last 24 hours): Temp Pulse Resp BP Pulse Ox 98.4 F 65 20 132/69 95 05/30/16 23:46 05/30/16 23:46 05/30/16 23:46 05/30/16 23:46 05/30/16 23:46 Intake and Output: 05/30/16 05/31/16 18:59 06:59 Intake Total 340 Balance 340 - Medications Medications: Current Medications Acetaminophen (Tylenol 325mg Tab) 650 mg PO Q6 PRN PRN Reason: Pain, moderate (4-7) Last Admin: 05/28/16 08:40 Dose: 650 mg Albuterol Sulfate (Albuterol 0.042% Inhal Liz (1.25mg/3ml) Ud) 1.25 mg INH RQ6 [facility] Last Admin: 05/30/16 19:20 Dose: 1.25 mg Gabapentin (Neurontin) 800 mg PO TID [facility] Last Admin: 05/30/16 17:35 Dose: 800 mg Guaifenesin (Mucinex La) 600 mg PO BID [facility] Last Admin: 05/30/16 17:33 Dose: 600 mg Meropenem 500 mg/ Sodium (Chloride) 100 mls @ 100 mls/hr IVPB Q8H [facility] Last Admin: 05/30/16 19:28 Dose: 100 mls/hr Insulin Aspart (Novolog) 9 unit SC TIDAC [facility] Last Admin: 05/30/16 16:49 Dose: 9 unit Insulin Aspart (Novolog) 0 unit SC ACHS [facility] PRN Reason: Protocol Last Admin: 05/30/16 21:33 Dose: 2 unit Insulin Glargine (Lantus) 17 unit SC ACB [facility] Last Admin: 05/30/16 08:39 Dose: Not Given Insulin Glargine (Lantus) 30 unit SC HS [facility] Last Admin: 05/30/16 21:17 Dose: 30 units Ipratropium [place] (Atrovent) 0.5 mg IH RQ6 [facility] Last Admin: 05/30/16 19:21 Dose: 0.5 mg Lamotrigine (Lamictal) 100 mg PO BID [facility] Last Admin: 05/30/16 17:34 Dose: 100 mg Methylprednisolone (Solu-Medrol) 40 mg IVP Q12 [facility] Last Admin: 05/30/16 21:19 Dose: 40 mg Morphine Sulfate (Morphine) 2 mg IVP Q4 PRN PRN Reason: Pain, moderate (4-7) Last Admin: 05/30/16 17:36 Dose: 2 mg Quetiapine Fumarate (Seroquel) 400 mg PO BID [facility] Last Admin: 05/30/16 17:34 Dose: 400 mg Sertraline HCl (Zoloft) 100 mg PO BID [facility] Last Admin: 05/30/16 17:35 Dose: 100 mg - Labs Labs: 05/30/16 11:06 05/30/16 11:06 - Constitutional Appears: No Acute Distress - Head Exam Head Exam: ATRAUMATIC, NORMAL INSPECTION, NORMOCEPHALIC - Eye Exam Eye Exam: EOMI, Normal appearance, PERRL Pupil Exam: NORMAL ACCOMODATION, PERRL - ENT Exam ENT Exam: Mucous Membranes Moist, Normal Exam - Respiratory Exam Respiratory Exam: Clear to Ausculation Bilateral, NORMAL BREATHING PATTERN - Cardiovascular Exam Cardiovascular Exam: REGULAR RHYTHM, +S1, +S2. absent: Murmur - GI/Abdominal Exam GI & Abdominal Exam: Soft, Normal Bowel Sounds. absent: Tenderness Assessment and Plan - Assessment and Plan (Free Text) Assessment: Assessment: Chronic Obstructive Pulmonary Disease w/ Lower Respiratory Infection Plan: Patient is stable from pulmonary for discharge. Sputum cx shows Proteus mirabilis CXR 05/28/16 shows persistent reticular and reticulonodular opacities greater on left than right. Amikacin 1,000 mg IV given once 05/26/16 Continue meropenem 500mg IV q8h, atrovent INH q6h, albuterol INH q6h, solumedrol 40mg IVP q12h, and guaifenesin 600mg PO BID Suction PRN. Encouraged patient to cough up mucous. Tracheostomy care Pulmonary toilet
[2016-05-31] MEDS: Albuterol 0.042% Inhal Sol (1.25 mg/3 mL) UD INH SCH ×4 (02:29→19:00)
[2016-05-31] MEDS: Meropenem 500 MG in Sodium Chloride 0.9% 100 ML IVPB SCH ×3 (03:04→18:04)
[2016-05-31] MEDS: Ipratropium 0.02% Inhal Soln (0.5 mg/2.5 ml) UD IH SCH ×3 (08:22→19:00)
[2016-05-31] MEDS: (Lantus) Insulin Glargine, Recombinant SC SCH ×2 (09:09→21:22)
[2016-05-31] MEDS: (Novolog) Insulin Aspart, Recombinant 100 u/ml 10 ml vial SC SCH ×7 (09:18→21:14)
[2016-05-31] MEDS: MethylPREDNISolone 40 mg Vial IVP SCH ×2 (10:42→20:59)
[2016-05-31] MEDS: guaiFENesin 600 mg ER Tab PO SCH ×2 (10:43→18:05)
--- NOTE | 2016-05-31 12:57 | CP.PCM.PN ---
Subjective - Date & Time of Evaluation Date of Evaluation: 05/31/16 Time of Evaluation: 12:56 - Subjective Subjective: AFEBRILE. STILL WITH THICK SECRETIONS TACHYCARDIC HEART RATE OF 104/M. DENIES SHORTNESS OF BREATH DENIES CHEST PAIN. wbc 14.5. Objective - Vital Signs/Intake and Output Vital Signs (last 24 hours): Temp Pulse Resp BP Pulse Ox 97.4 F L 104 H 18 101/61 96 05/31/16 08:40 05/31/16 08:40 05/31/16 08:40 05/31/16 08:40 05/31/16 08:40 Intake and Output: 05/31/16 05/31/16 06:59 18:59 Intake Total 340 Balance 340 - Medications Medications: Current Medications Acetaminophen (Tylenol 325mg Tab) 650 mg PO Q6 PRN PRN Reason: Pain, moderate (4-7) Last Admin: 05/28/16 08:40 Dose: 650 mg Albuterol Sulfate (Albuterol 0.042% Inhal Liz (1.25mg/3ml) Ud) 1.25 mg INH RQ6 [facility] Last Admin: 05/31/16 08:22 Dose: 1.25 mg Gabapentin (Neurontin) 800 mg PO TID [facility] Last Admin: 05/31/16 10:42 Dose: 800 mg Guaifenesin (Mucinex La) 600 mg PO BID [facility] Last Admin: 05/31/16 10:43 Dose: 600 mg Meropenem 500 mg/ Sodium (Chloride) 100 mls @ 100 mls/hr IVPB Q8H [facility] Last Admin: 05/31/16 11:13 Dose: 100 mls/hr Insulin Aspart (Novolog) 9 unit SC TIDAC [facility] Last Admin: 05/31/16 12:16 Dose: 9 unit Insulin Aspart (Novolog) 0 unit SC ACHS SHAYLA PRN Reason: Protocol Last Admin: 05/31/16 12:16 Dose: 6 unit Insulin Glargine (Lantus) 17 unit SC ACB [facility] Last Admin: 05/31/16 09:09 Dose: Not Given Insulin Glargine (Lantus) 30 unit SC HS [facility] Last Admin: 05/30/16 21:17 Dose: 30 units Ipratropium [place] (Atrovent) 0.5 mg IH RQ6 [facility] Last Admin: 05/31/16 08:22 Dose: 0.5 mg Lamotrigine (Lamictal) 100 mg PO BID [facility] Last Admin: 05/31/16 10:43 Dose: 100 mg Methylprednisolone (Solu-Medrol) 40 mg IVP Q12 [facility] Last Admin: 05/31/16 10:42 Dose: 40 mg Morphine Sulfate (Morphine) 2 mg IVP Q4 PRN PRN Reason: Pain, moderate (4-7) Last Admin: 05/31/16 07:25 Dose: 2 mg Quetiapine Fumarate (Seroquel) 400 mg PO BID [facility] Last Admin: 05/31/16 10:43 Dose: 400 mg Sertraline HCl (Zoloft) 100 mg PO BID [facility] Last Admin: 05/31/16 10:42 Dose: 100 mg - Labs Labs: 05/30/16 11:06 05/30/16 11:06 - Constitutional Appears: No Acute Distress - Head Exam Head Exam: NORMAL INSPECTION - Eye Exam Eye Exam: EOMI, PERRL - ENT Exam ENT Exam: Mucous Membranes Moist - Respiratory Exam Respiratory Exam: Rhonchi (bILATERALLY) - Cardiovascular Exam Cardiovascular Exam: Tachycardia, REGULAR RHYTHM, +S1, +S2 - GI/Abdominal Exam GI & Abdominal Exam: Soft, Normal Bowel Sounds - Extremities Exam Extremities Exam: absent: Calf Tenderness, Pedal Edema - Neurological Exam Neurological Exam: Awake, CN II-XII Intact, Oriented x3, Reflexes Normal - Psychiatric Exam Psychiatric exam: Normal Mood - Skin Skin Exam: Normal Color, Warm Assessment and Plan - Assessment and Plan (Free Text) Assessment: IMPRESSION; -EXASCERBATION OF COPD/S/P TRACHEOSTOMY. -ACUTE LOWER RESPIRATORY TRACT INFECTION (MDR PROTEUS MIRABLIS INFECTION ). -DIABETES MELLITUS. -HTN. - MODERATE OBESITY. PLAN; CASE DISCUSSED WITH NURSE PRACTITIONER MS DÍAZ. PATIENT NOT IN ISOLATION ROOM. pATIENT TO MOVE TO ISOLATION ROOM JORY. STRICT ISOLATION. START IV AMIKACIN 1000MG IV STAT DOSE.05/24/16. CONTINUE IV MERREM 500MG IV Q 8HRLY 05/24/16. FOR NOW-DAY 8 FOR AT LEAST 10 DAYS REPEAT SPUTUM CULTURE SUCTION PRN TRACHEOSTOMY CARE PER PULMONARY. .
--- NOTE | 2016-06-01 00:14 | CP.PCM.PN ---
Subjective - Date & Time of Evaluation Date of Evaluation: 05/31/16 Time of Evaluation: 10:21 - Subjective Subjective: Patient seen and examined in bed. Pt reports feeling better despite persistent mucous production and chest congestion with associated mild shortness of breath. No events overnight per nursing. Pt denies chest pain, headache, palpitations, nausea, vomiting, fever, chills. Pt is for Iv antibiotics till sunday Objective - Vital Signs/Intake and Output Vital Signs (last 24 hours): Temp Pulse Resp BP Pulse Ox 97.7 F 73 22 128/82 96 05/31/16 17:30 05/31/16 17:30 05/31/16 17:30 05/31/16 17:30 05/31/16 17:30 Intake and Output: 05/31/16 06/01/16 18:59 06:59 Intake Total 340 Balance 340 - Medications Medications: Current Medications Acetaminophen (Tylenol 325mg Tab) 650 mg PO Q6 PRN PRN Reason: Pain, moderate (4-7) Last Admin: 05/28/16 08:40 Dose: 650 mg Albuterol Sulfate (Albuterol 0.042% Inhal Liz (1.25mg/3ml) Ud) 1.25 mg INH RQ6 [facility] Last Admin: 05/31/16 13:31 Dose: 1.25 mg Gabapentin (Neurontin) 800 mg PO TID [facility] Last Admin: 05/31/16 18:05 Dose: 800 mg Guaifenesin (Mucinex La) 600 mg PO BID [facility] Last Admin: 05/31/16 18:05 Dose: 600 mg Meropenem 500 mg/ Sodium (Chloride) 100 mls @ 100 mls/hr IVPB Q8H [facility] Last Admin: 05/31/16 18:04 Dose: 100 mls/hr Insulin Aspart (Novolog) 9 unit SC TIDAC [facility] Last Admin: 05/31/16 16:32 Dose: 9 unit Insulin Aspart (Novolog) 0 unit SC ACHS SHAYLA PRN Reason: Protocol Last Admin: 05/31/16 21:14 Dose: Not Given Insulin Glargine (Lantus) 17 unit SC ACB [facility] Last Admin: 05/31/16 09:09 Dose: Not Given Insulin Glargine (Lantus) 30 unit SC HS [facility] Last Admin: 05/31/16 21:22 Dose: 30 units Ipratropium [place] (Atrovent) 0.5 mg IH RQ6 [facility] Last Admin: 05/31/16 13:31 Dose: 0.5 mg Lamotrigine (Lamictal) 100 mg PO BID [facility] Last Admin: 05/31/16 18:04 Dose: 100 mg Methylprednisolone (Solu-Medrol) 40 mg IVP Q12 [facility] Last Admin: 05/31/16 20:59 Dose: 40 mg Morphine Sulfate (Morphine) 2 mg IVP Q4 PRN PRN Reason: Pain, moderate (4-7) Last Admin: 05/31/16 20:55 Dose: 2 mg Quetiapine Fumarate (Seroquel) 400 mg PO BID [facility] Last Admin: 05/31/16 18:05 Dose: 400 mg Sertraline HCl (Zoloft) 100 mg PO BID [facility] Last Admin: 05/31/16 18:06 Dose: 100 mg - Labs Labs: 05/30/16 11:06 05/30/16 11:06 - Constitutional Appears: No Acute Distress - Head Exam Head Exam: ATRAUMATIC, NORMAL INSPECTION, NORMOCEPHALIC - Eye Exam Eye Exam: EOMI, Normal appearance, PERRL Pupil Exam: NORMAL ACCOMODATION, PERRL - ENT Exam ENT Exam: Mucous Membranes Moist, Normal Exam - Respiratory Exam Respiratory Exam: Decreased Breath Sounds, Rhonchi, NORMAL BREATHING PATTERN - Cardiovascular Exam Cardiovascular Exam: Tachycardia, +S1, +S2 - GI/Abdominal Exam GI & Abdominal Exam: Soft, Normal Bowel Sounds. absent: Tenderness Assessment and Plan - Assessment and Plan (Free Text) Assessment: IMPRESSION; -EXASCERBATION OF COPD/S/P TRACHEOSTOMY. -ACUTE LOWER RESPIRATORY TRACT INFECTION (MDR PROTEUS MIRABLIS INFECTION ). -DIABETES MELLITUS. -HTN. - MODERATE OBESITY. PLAN; PATIENT NOT IN ISOLATION ROOM. STRICT ISOLATION. START IV AMIKACIN 1000MG IV STAT DOSE.05/24/16. CONTINUE IV MERREM 500MG IV Q 8HRLY 05/24/16. FOR NOW-DAY 8 FOR AT LEAST 10 DAYS REPEAT SPUTUM CULTURE SUCTION PRN TRACHEOSTOMY CARE PER PULMONARY. .
[2016-06-01] MEDS: Ipratropium 0.02% Inhal Soln (0.5 mg/2.5 ml) UD IH SCH ×4 (01:43→19:51)
[2016-06-01] MEDS: Albuterol 0.042% Inhal Sol (1.25 mg/3 mL) UD INH SCH ×4 (01:43→19:51)
[2016-06-01] MEDS: Meropenem 500 MG in Sodium Chloride 0.9% 100 ML IVPB SCH ×3 (03:00→18:20)
[2016-06-01] MEDS: (Novolog) Insulin Aspart, Recombinant 100 u/ml 10 ml vial SC SCH ×7 (09:04→21:04)
[2016-06-01] MEDS: (Lantus) Insulin Glargine, Recombinant SC SCH ×2 (09:04→21:31)
[2016-06-01] MEDS: MethylPREDNISolone 40 mg Vial IVP SCH ×2 (09:05→21:31)
[2016-06-01] MEDS: guaiFENesin 600 mg ER Tab PO SCH ×2 (09:05→18:20)
--- NOTE | 2016-06-01 16:55 | CP.PCM.PN ---
Subjective - Date & Time of Evaluation Date of Evaluation: 06/01/16 Time of Evaluation: 16:55 - Subjective Subjective: afebrile. Doing better slightly. Offers no new complaints. Objective - Vital Signs/Intake and Output Vital Signs (last 24 hours): Temp Pulse Resp BP Pulse Ox 98.1 F 70 22 138/76 96 06/01/16 16:00 06/01/16 16:00 06/01/16 16:00 06/01/16 16:00 06/01/16 16:00 Intake and Output: 06/01/16 06/01/16 06:59 18:59 Intake Total 400 Balance 400 - Medications Medications: Current Medications Acetaminophen (Tylenol 325mg Tab) 650 mg PO Q6 PRN PRN Reason: Pain, moderate (4-7) Last Admin: 05/28/16 08:40 Dose: 650 mg Albuterol Sulfate (Albuterol 0.042% Inhal Liz (1.25mg/3ml) Ud) 1.25 mg INH RQ6 [facility] Last Admin: 06/01/16 14:02 Dose: 1.25 mg Gabapentin (Neurontin) 800 mg PO TID [facility] Last Admin: 06/01/16 13:28 Dose: 800 mg Guaifenesin (Mucinex La) 600 mg PO BID [facility] Last Admin: 06/01/16 09:05 Dose: 600 mg Meropenem 500 mg/ Sodium (Chloride) 100 mls @ 100 mls/hr IVPB Q8H [facility] Last Admin: 06/01/16 11:17 Dose: 100 mls/hr Insulin Aspart (Novolog) 9 unit SC TIDAC [facility] Last Admin: 06/01/16 13:28 Dose: 9 unit Insulin Aspart (Novolog) 0 unit SC ACHS [facility] PRN Reason: Protocol Last Admin: 06/01/16 13:28 Dose: 2 unit Insulin Glargine (Lantus) 17 unit SC ACB [facility] Last Admin: 06/01/16 09:04 Dose: 17 units Insulin Glargine (Lantus) 30 unit SC HS [facility] Last Admin: 05/31/16 21:22 Dose: 30 units Ipratropium [place] (Atrovent) 0.5 mg IH RQ6 [facility] Last Admin: 06/01/16 14:02 Dose: 0.5 mg Lamotrigine (Lamictal) 100 mg PO BID [facility] Last Admin: 06/01/16 09:05 Dose: 100 mg Methylprednisolone (Solu-Medrol) 40 mg IVP Q12 [facility] Last Admin: 06/01/16 09:05 Dose: 40 mg Morphine Sulfate (Morphine) 2 mg IVP Q4 PRN PRN Reason: Pain, moderate (4-7) Last Admin: 06/01/16 13:28 Dose: 2 mg Quetiapine Fumarate (Seroquel) 400 mg PO BID [facility] Last Admin: 06/01/16 09:05 Dose: 400 mg Sertraline HCl (Zoloft) 100 mg PO BID [facility] Last Admin: 06/01/16 09:05 Dose: 100 mg - Labs Labs: 05/30/16 11:06 05/30/16 11:06 - Constitutional Appears: No Acute Distress - Head Exam Head Exam: NORMAL INSPECTION - Eye Exam Eye Exam: EOMI, PERRL - ENT Exam ENT Exam: Mucous Membranes Moist - Neck Exam Neck Exam: Normal Inspection - Respiratory Exam Respiratory Exam: Rhonchi (few scattered rhonchi.) - Cardiovascular Exam Cardiovascular Exam: REGULAR RHYTHM, +S1, +S2 - GI/Abdominal Exam GI & Abdominal Exam: Normal Bowel Sounds. absent: Organomegaly - Extremities Exam Extremities Exam: Normal Capillary Refill. absent: Calf Tenderness, Pedal Edema - Neurological Exam Neurological Exam: Awake, Oriented x3, Reflexes Normal - Psychiatric Exam Psychiatric exam: Normal Mood - Skin Skin Exam: Normal Color, Warm Assessment and Plan - Assessment and Plan (Free Text) Assessment: IMPRESSION; -EXASCERBATION OF COPD/S/P TRACHEOSTOMY. -ACUTE LOWER RESPIRATORY TRACT INFECTION (MDR PROTEUS MIRABLIS INFECTION ). -DIABETES MELLITUS. -HTN. - MODERATE OBESITY. PLAN; CASE DISCUSSED WITH NURSE PRACTITIONER MS DÍAZ. STRICT ISOLATION. CONTINUE IV MERREM 500MG IV Q 8HRLY 05/24/16. FOR NOW-DAY 8 FOR AT LEAST 10 DAYS REPEAT SPUTUM CULTURE- PENDING SUCTION PRN TRACHEOSTOMY CARE PER PULMONARY. .
--- NOTE | 2016-06-01 22:31 | CP.PCM.PN ---
Subjective - Date & Time of Evaluation Date of Evaluation: 06/01/16 Time of Evaluation: 10:25 - Subjective Subjective: Pt seen & examined, is improving, she is on antibiotics , she gets congested at ties, she is for possible discharge tomorrow Objective - Vital Signs/Intake and Output Vital Signs (last 24 hours): Temp Pulse Resp BP Pulse Ox 98.1 F 70 22 138/76 96 06/01/16 16:00 06/01/16 16:00 06/01/16 16:00 06/01/16 16:00 06/01/16 16:00 - Medications Medications: Current Medications Acetaminophen (Tylenol 325mg Tab) 650 mg PO Q6 PRN PRN Reason: Pain, moderate (4-7) Last Admin: 05/28/16 08:40 Dose: 650 mg Albuterol Sulfate (Albuterol 0.042% Inhal Liz (1.25mg/3ml) Ud) 1.25 mg INH RQ6 [facility] Last Admin: 06/01/16 19:51 Dose: 1.25 mg Gabapentin (Neurontin) 800 mg PO TID [facility] Last Admin: 06/01/16 18:20 Dose: 800 mg Guaifenesin (Mucinex La) 600 mg PO BID [facility] Last Admin: 06/01/16 18:20 Dose: 600 mg Meropenem 500 mg/ Sodium (Chloride) 100 mls @ 100 mls/hr IVPB Q8H [facility] Last Admin: 06/01/16 18:20 Dose: 100 mls/hr Insulin Aspart (Novolog) 9 unit SC TIDAC [facility] Last Admin: 06/01/16 18:19 Dose: 9 unit Insulin Aspart (Novolog) 0 unit SC ACHS [facility] PRN Reason: Protocol Last Admin: 06/01/16 21:04 Dose: Not Given Insulin Glargine (Lantus) 17 unit SC ACB [facility] Last Admin: 06/01/16 09:04 Dose: 17 units Insulin Glargine (Lantus) 30 unit SC HS [facility] Last Admin: 06/01/16 21:31 Dose: 30 units Ipratropium [place] (Atrovent) 0.5 mg IH RQ6 [facility] Last Admin: 06/01/16 19:51 Dose: 0.5 mg Lamotrigine (Lamictal) 100 mg PO BID [facility] Last Admin: 06/01/16 18:20 Dose: 100 mg Methylprednisolone (Solu-Medrol) 40 mg IVP Q12 [facility] Last Admin: 06/01/16 21:31 Dose: 40 mg Morphine Sulfate (Morphine) 2 mg IVP Q4 PRN PRN Reason: Pain, moderate (4-7) Last Admin: 06/01/16 18:21 Dose: 2 mg Quetiapine Fumarate (Seroquel) 400 mg PO BID [facility] Last Admin: 06/01/16 18:20 Dose: 400 mg Sertraline HCl (Zoloft) 100 mg PO BID [facility] Last Admin: 06/01/16 18:20 Dose: 100 mg - Labs Labs: 05/30/16 11:06 05/30/16 11:06 - Constitutional Appears: No Acute Distress, Chronically Ill - Head Exam Head Exam: ATRAUMATIC, NORMAL INSPECTION, NORMOCEPHALIC - Eye Exam Eye Exam: EOMI, Normal appearance, PERRL Pupil Exam: NORMAL ACCOMODATION, PERRL - ENT Exam ENT Exam: Mucous Membranes Moist, Normal Exam - Respiratory Exam Respiratory Exam: Decreased Breath Sounds, Rales - Cardiovascular Exam Cardiovascular Exam: REGULAR RHYTHM, +S1, +S2. absent: Murmur - GI/Abdominal Exam GI & Abdominal Exam: Soft, Normal Bowel Sounds. absent: Tenderness Assessment and Plan - Assessment and Plan (Free Text) Assessment: Assessment: IMPRESSION; -EXACERBATION OF COPD/S/P TRACHEOSTOMY. -ACUTE LOWER RESPIRATORY TRACT INFECTION (MDR PROTEUS MIRABLIS INFECTION ). -DIABETES MELLITUS. -HTN. - MODERATE OBESITY. PLAN; PATIENT NOT IN ISOLATION ROOM. STRICT ISOLATION. START IV AMIKACIN 1000MG IV STAT DOSE.05/24/16. CONTINUE IV MERREM 500MG IV Q 8HRLY 05/24/16. FOR NOW-DAY 8 FOR AT LEAST 10 DAYS REPEAT SPUTUM CULTURE SUCTION PRN TRACHEOSTOMY CARE PER PULMONARY. . POSSIBLE DISCHARGE TOMMOROW
[2016-06-02] MEDS: Albuterol 0.042% Inhal Sol (1.25 mg/3 mL) UD INH SCH ×3 (01:30→13:15)
[2016-06-02] MEDS: Ipratropium 0.02% Inhal Soln (0.5 mg/2.5 ml) UD IH SCH ×3 (01:30→13:15)
[2016-06-02] MEDS: Meropenem 500 MG in Sodium Chloride 0.9% 100 ML IVPB SCH ×2 (02:17→10:29)
[2016-06-02 07:44] VITALS: O2SAT 95
[2016-06-02 08:05] LABS: BASO % 0.2 % (0.0-2.0); LYMPH # 2.3 K/uL (1.0-4.3); LYMPH % 14.7 % (20.0-40.0); MEAN CELL VOLUME 79.8 fL (81.0-99.0); MEAN CORPUSCULAR HEMOGLOBIN 25.6 pg (27.0-31.0); MEAN CORPUSCULAR HGB CONC 32.1 g/dL (33.0-37.0); MEAN PLATELET VOLUME 8.7 fL (7.2-11.7); MONO # 0.9 K/uL (0.0-0.8); MONO % 5.7 % (0.0-10.0); NRBC % 0.1 % (0.0-2.0); WHITE BLOOD COUNT 15.9 K/uL (4.8-10.8)
[2016-06-02] MEDS: (Novolog) Insulin Aspart, Recombinant 100 u/ml 10 ml vial SC SCH ×6 (08:22→17:09)
[2016-06-02] MEDS: (Lantus) Insulin Glargine, Recombinant SC SCH (08:24)
[2016-06-02 08:33] LABS: CHLORIDE 93 mmol/L (98-107); POTASSIUM 4.8 mmol/L (3.6-5.2); SODIUM 137 mmol/L (132-148)
[2016-06-02 08:36] LABS: BLOOD UREA NITROGEN 27 mg/dL (7-17); CARBON DIOXIDE 29 mmol/L (22-30); GFR AFRICAN-AMERICAN > 60; GLUCOSE,RANDOM 257 mg/dL (65-105)
[2016-06-02 08:37] LABS: CALCIUM 9.1 mg/dl (8.6-10.4)
[2016-06-02] MEDS: guaiFENesin 600 mg ER Tab PO SCH ×2 (10:09→17:04)
[2016-06-02] MEDS: MethylPREDNISolone 40 mg Vial IVP SCH (10:46)
--- NOTE | 2016-06-02 14:14 | CP.PCM.PN ---
Subjective - Date & Time of Evaluation Date of Evaluation: 06/02/16 Time of Evaluation: 11:00 - Subjective Subjective: Pt seen and examined today , sob improved , cough and congestion improved, vss- a febrile Objective - Vital Signs/Intake and Output Vital Signs (last 24 hours): Temp Pulse Resp BP Pulse Ox 97.4 F L 66 22 146/83 95 06/02/16 07:00 06/02/16 07:00 06/02/16 07:00 06/02/16 07:00 06/02/16 07:00 Intake and Output: 06/02/16 06/02/16 06:59 18:59 Intake Total 240 Balance 240 - Medications Medications: Current Medications Acetaminophen (Tylenol 325mg Tab) 650 mg PO Q6 PRN PRN Reason: Pain, moderate (4-7) Last Admin: 05/28/16 08:40 Dose: 650 mg Albuterol Sulfate (Albuterol 0.042% Inhal Liz (1.25mg/3ml) Ud) 1.25 mg INH RQ6 [facility] Last Admin: 06/02/16 13:15 Dose: 1.25 mg Gabapentin (Neurontin) 800 mg PO TID [facility] Last Admin: 06/02/16 13:25 Dose: 800 mg Guaifenesin (Mucinex La) 600 mg PO BID [facility] Last Admin: 06/02/16 10:09 Dose: 600 mg Meropenem 500 mg/ Sodium (Chloride) 100 mls @ 100 mls/hr IVPB Q8H [facility] Last Admin: 06/02/16 10:29 Dose: 100 mls/hr Insulin Aspart (Novolog) 9 unit SC TIDAC [facility] Last Admin: 06/02/16 12:06 Dose: 9 unit Insulin Aspart (Novolog) 0 unit SC ACHS [facility] PRN Reason: Protocol Last Admin: 06/02/16 12:06 Dose: 2 unit Insulin Glargine (Lantus) 17 unit SC ACB [facility] Last Admin: 06/02/16 08:24 Dose: 17 units Insulin Glargine (Lantus) 30 unit SC HS [facility] Last Admin: 06/01/16 21:31 Dose: 30 units Ipratropium [place] (Atrovent) 0.5 mg IH RQ6 [facility] Last Admin: 06/02/16 13:15 Dose: 0.5 mg Lamotrigine (Lamictal) 100 mg PO BID [facility] Last Admin: 06/02/16 10:09 Dose: 100 mg Methylprednisolone (Solu-Medrol) 40 mg IVP Q12 [facility] Last Admin: 06/02/16 10:46 Dose: 40 mg Morphine Sulfate (Morphine) 2 mg IVP Q4 PRN PRN Reason: Pain, moderate (4-7) Last Admin: 06/02/16 04:51 Dose: 2 mg Quetiapine Fumarate (Seroquel) 400 mg PO BID [facility] Last Admin: 06/02/16 10:10 Dose: 400 mg Sertraline HCl (Zoloft) 100 mg PO BID [facility] Last Admin: 06/02/16 10:10 Dose: 100 mg - Labs Labs: 06/02/16 07:37 06/02/16 07:37 Assessment and Plan - Assessment and Plan (Free Text) Assessment: A/P 60 YR OLD FEMALE ADMITTED FOR EXCERBATION OF COPD/ ON TRACH / UPPER RESP. INFECTION SPUTUM - MDR- PROTEUS MIRABLIS AND TREATED WITH IRRUM X 10DAYS AND REPEAT CULTURE DONE - PENDING RESULT PULMINORY CLEARED PT FOR DISCHARGE HOME D/W WITH DR. SAUCEDO, CLEARED PT FOR DISCHARGE HOME TODAY FROM [facility] AND NO NEED TO CONTINUE PO ANTIBIOTICS AT HOME D/W WITH DR. HUGGINS, STABLE FOR DISCHARGE HOME TODAY AND F/U WITH PMD IN 3-5 DAYS DISCHARGE PLAN DISCUSSED WITH PATIENT , WHO UNDERSTANDS AND AGREES WITH PLAN PT INSTRUCTED TO RETURN TO ED IF SYMPTOMS RETURNS
[2016-06-02 18:47] VITALS: BP 130/80; PULSE 85; RESP 20; TEMP 98.1
--- NOTE | 2016-06-02 19:18 | CP.PCM.PN ---
Subjective - Date & Time of Evaluation Date of Evaluation: 06/02/16 Time of Evaluation: 10:30 - Subjective Subjective: Pt seen and examined today , sob improved , cough and congestion improved, vss- a febrile pt is good for discharge home Objective - Vital Signs/Intake and Output Vital Signs (last 24 hours): Temp Pulse Resp BP Pulse Ox 98.1 F 85 20 130/80 95 06/02/16 16:00 06/02/16 16:00 06/02/16 16:00 06/02/16 16:00 06/02/16 16:00 Intake and Output: 06/02/16 06/03/16 18:59 06:59 Intake Total 400 Balance 400 - Medications Medications: Current Medications Acetaminophen (Tylenol 325mg Tab) 650 mg PO Q6 PRN PRN Reason: Pain, moderate (4-7) Last Admin: 05/28/16 08:40 Dose: 650 mg Albuterol Sulfate (Albuterol 0.042% Inhal Liz (1.25mg/3ml) Ud) 1.25 mg INH RQ6 [facility] Last Admin: 06/02/16 13:15 Dose: 1.25 mg Gabapentin (Neurontin) 800 mg PO TID [facility] Last Admin: 06/02/16 17:04 Dose: 800 mg Guaifenesin (Mucinex La) 600 mg PO BID [facility] Last Admin: 06/02/16 17:04 Dose: 600 mg Meropenem 500 mg/ Sodium (Chloride) 100 mls @ 100 mls/hr IVPB Q8H [facility] Last Admin: 06/02/16 10:29 Dose: 100 mls/hr Insulin Aspart (Novolog) 9 unit SC TIDAC [facility] Last Admin: 06/02/16 17:08 Dose: 9 unit Insulin Aspart (Novolog) 0 unit SC ACHS [facility] PRN Reason: Protocol Last Admin: 06/02/16 17:09 Dose: 2 unit Insulin Glargine (Lantus) 17 unit SC ACB [facility] Last Admin: 06/02/16 08:24 Dose: 17 units Insulin Glargine (Lantus) 30 unit SC HS [facility] Last Admin: 06/01/16 21:31 Dose: 30 units Ipratropium [place] (Atrovent) 0.5 mg IH RQ6 [facility] Last Admin: 06/02/16 13:15 Dose: 0.5 mg Lamotrigine (Lamictal) 100 mg PO BID [facility] Last Admin: 06/02/16 17:04 Dose: 100 mg Methylprednisolone (Solu-Medrol) 40 mg IVP Q12 [facility] Last Admin: 06/02/16 10:46 Dose: 40 mg Morphine Sulfate (Morphine) 2 mg IVP Q4 PRN PRN Reason: Pain, moderate (4-7) Last Admin: 06/02/16 04:51 Dose: 2 mg Quetiapine Fumarate (Seroquel) 400 mg PO BID [facility] Last Admin: 06/02/16 17:04 Dose: 400 mg Sertraline HCl (Zoloft) 100 mg PO BID [facility] Last Admin: 06/02/16 17:04 Dose: 100 mg - Labs Labs: 06/02/16 07:37 06/02/16 07:37 - Constitutional Appears: No Acute Distress - Head Exam Head Exam: ATRAUMATIC, NORMAL INSPECTION, NORMOCEPHALIC - Eye Exam Eye Exam: EOMI, Normal appearance, PERRL Pupil Exam: NORMAL ACCOMODATION, PERRL - Respiratory Exam Respiratory Exam: Clear to Ausculation Bilateral, NORMAL BREATHING PATTERN - Cardiovascular Exam Cardiovascular Exam: REGULAR RHYTHM, +S1, +S2. absent: Murmur - GI/Abdominal Exam GI & Abdominal Exam: Soft, Normal Bowel Sounds. absent: Tenderness - Rectal Exam Rectal Exam: Deferred Assessment and Plan - Assessment and Plan (Free Text) Assessment: Assessment: IMPRESSION; -EXACERBATION OF COPD/S/P TRACHEOSTOMY. -ACUTE LOWER RESPIRATORY TRACT INFECTION (MDR PROTEUS MIRABLIS INFECTION ). -DIABETES MELLITUS. -HTN. - MODERATE OBESITY. PLAN; SUCTION PRN TRACHEOSTOMY CARE PER PULMONARY. . POSSIBLE DISCHARGE TOMMOROW
--- NOTE | 2016-06-03 02:22 | CP.PCM.DIS ---
Provider - Provider Date of Admission: 05/21/16 08:51 Attending physician: Ad Khan MD Time Spent in preparation of Discharge (in minutes): 30 Hospital Course - Lab Results Lab Results: Micro Results 06/01/16 15:00 Trachasp Gram Stain - Final 06/01/16 15:00 Trachasp Sputum Culture - Preliminary Gram Negative Parrish Most Recent Lab Values WBC 15.9 K/uL (4.8-10.8) H 06/02/16 07:37 RBC 4.89 Mil/uL (3.80-5.20) 06/02/16 07:37 Hgb 12.5 g/dL (11.0-16.0) 06/02/16 07:37 Hct 39.0 % (34.0-47.0) 06/02/16 07:37 MCV 79.8 fL (81.0-99.0) L 06/02/16 07:37 MCH 25.6 pg (27.0-31.0) L 06/02/16 07:37 MCHC 32.1 g/dL (33.0-37.0) L 06/02/16 07:37 RDW 16.0 % (11.5-14.5) H 06/02/16 07:37 Plt Count 179 K/uL (130-400) 06/02/16 07:37 MPV 8.7 fL (7.2-11.7) 06/02/16 07:37 Neut % (Auto) 79.4 % (50.0-75.0) H 06/02/16 07:37 Lymph % (Auto) 14.7 % (20.0-40.0) L 06/02/16 07:37 Swain % (Auto) 5.7 % (0.0-10.0) 06/02/16 07:37 Eos % (Auto) 0.0 % (0.0-4.0) 06/02/16 07:37 Baso % (Auto) 0.2 % (0.0-2.0) 06/02/16 07:37 Neut # 12.6 K/uL (1.8-7.0) H 06/02/16 07:37 Lymph # 2.3 K/uL (1.0-4.3) 06/02/16 07:37 Swain # 0.9 K/uL (0.0-0.8) H 06/02/16 07:37 Eos # 0.0 K/uL (0.0-0.7) 06/02/16 07:37 Baso # 0.0 K/uL (0.0-0.2) 06/02/16 07:37 Differential Comment 05/19/16 21:00 Sodium 137 mmol/L (132-148) 06/02/16 07:37 Potassium 4.8 mmol/L (3.6-5.2) 06/02/16 07:37 Chloride 93 mmol/L (98-107) L 06/02/16 07:37 Carbon Dioxide 29 mmol/L (22-30) 06/02/16 07:37 Anion Gap 20 (10-20) 06/02/16 07:37 BUN 27 mg/dL (7-17) H 06/02/16 07:37 Creatinine 0.9 MG/DL (0.7-1.2) 06/02/16 07:37 Est GFR ( Amer) > 60 06/02/16 07:37 Est GFR (Non-Af Amer) > 60 06/02/16 07:37 POC Glucose (mg/dL) 205 mg/dL (65-110) H 06/02/16 17:42 Random Glucose 257 mg/dL (65-105) H 06/02/16 07:37 Calcium 9.1 mg/dl (8.6-10.4) 06/02/16 07:37 Total Bilirubin 0.4 mg/dL (0.2-1.3) 05/19/16 21:00 AST 16 U/L (14-36) 05/19/16 21:00 ALT 17 U/L (9-52) 05/19/16 21:00 Alkaline Phosphatase 138 U/L (38-126) H 05/19/16 21:00 Troponin I < 0.0120 ng/mL (0.00-0.120) 05/19/16 21:00 NT-Pro-B Natriuret Pep 132 pg/mL (0-900) 05/19/16 21:00 Total Protein 8.4 g/dL (6.3-8.3) H 05/19/16 21:00 Albumin 4.1 g/dL (3.5-5.0) 05/19/16 21:00 Globulin 4.3 gm/dL (2.2-3.9) H 05/19/16 21:00 Albumin/Globulin Ratio 1.0 (1.0-2.1) 05/19/16 21:00 Procalcitonin 0.06 NG/ML (0.19-0.49) L 05/21/16 17:07 Influenza Typ A,B (EIA) Negative for flu a/b (NEGATIVE) 05/19/16 20:30 - Hospital Course Hospital Course: Pt seen and examined today , sob improved , cough and congestion improved, vss- a febrile pt is good for discharge home Discharge Exam - Head Exam Head Exam: ATRAUMATIC, NORMAL INSPECTION, NORMOCEPHALIC Discharge Plan - Discharge Medications Prescriptions: predniSONE [Prednisone] 30 mg PO DAILY #18 tab - Follow Up Plan Condition: GOOD Disposition: HOME/ ROUTINE Instructions: Prednisone (By mouth), Heart Failure (DC), Tracheotomy (DC), Dyspnea (GEN) Additional Instructions: f/u with PMD in 3-5 days Continue oxygen via trach collar continue medication as per Med. Rec.Please worm picker medication from pharmacy Referrals: Ad Khan MD [Staff Provider] -
== END 2016-06-02 21:35 | disposition home or self-care (01) | DRG 88 ==
LOC: C.ER 19:05 → C.9E 21:27 → C.6T 22:43 → OBSVTOIN 05-21 08:51 → C.3T 05-26 10:58 → C.5T 05-31 17:43
PROVIDERS: ADMIT Internal Medicine; ATTEND Internal Medicine
DX: J44.0 Chronic obstructive pulmonary disease with (acute) lower respiratory infection (principal); J95.03 Malfunction of tracheostomy stoma; I11.0 Hypertensive heart disease with heart failure; I50.9 Heart failure, unspecified; E66.01 Morbid (severe) obesity due to excess calories; J45.901 Unspecified asthma with (acute) exacerbation; B96.4 Proteus (mirabilis) (morganii) as the cause of diseases classified elsewhere; E11.9 Type 2 diabetes mellitus without complications; J44.1 Chronic obstructive pulmonary disease with (acute) exacerbation; Z87.01 Personal history of pneumonia (recurrent); F32.9 Major depressive disorder, single episode, unspecified; Z90.49 Acquired absence of other specified parts of digestive tract; G47.30 Sleep apnea, unspecified; G40.909 Epilepsy, unspecified, not intractable, without status epilepticus; Y83.3 Surgical operation with formation of external stoma as the cause of abnormal reaction of the patient, or of later complication, without mention of misadventure at the time of the procedure; M54.9 Dorsalgia, unspecified; Z79.4 Long term (current) use of insulin

== ENCOUNTER 2016-07-24 22:05 | Inpatient (IN) | payer OTHER ==
[2016-07-24 22:05] VITALS: BMI 45.6
[2016-07-24] MEDS ORDERED: Albuterol-Ipratrop 3 mg / 0.5 (3 ml) UD ONE ×2 (22:22→23:46)
--- NOTE | 2016-07-24 22:41 | C.PDOC ---
History Of Present Illness Patient presents to the ER with a complaint of SOB and yellow thick mucous coming out of her tracheostomy site, worsening since last week. Patient denies chest pain, nausea or vomiting. Time Seen by Provider: 07/24/16 22:41 Chief Complaint (Nursing): Cough, Cold, Congestion History Per: Patient History/Exam Limitations: no limitations Onset/Duration Of Symptoms: Days (7) Current Symptoms Are (Timing): Still Present Initiating Event: Other (Not known) Exacerbating Factor(s): Other (Not known) Current Respiratory Medications: See Home Med List Severity: Moderate Pain Scale Rating Of: 5 Associated Symptoms: denies: Chest Pain, Other (Nausea, vomiting) Reports Recently: Seen In ED, Treated By A Physician, Hospitalized Recent travel outside of the [place]: No Additional History Per: Family Past Medical History Reviewed: Historical Data, Nursing Documentation, Vital Signs Vital Signs: Last Vital Signs Temp 97.8 F 07/25/16 02:56 Pulse 105 H 07/25/16 02:56 Resp 21 07/25/16 02:56 BP 137/83 07/25/16 02:56 Pulse Ox 100 07/25/16 03:19 - Medical History PMH: Anxiety, Asthma, Bipolar Disorder, Bronchitis, CHF, COPD, Depression, Emphysema, HTN, Pneumonia, Seizures, Sleep Apnea Surgical History: Appendectomy, Cholecystectomy - [facility] Procedures ASSISTANCE WITH RESPIRATORY VENTILATION, <24 HRS, CPAP (03/14/16) CENTRAL VENOUS CATHETER PLACEMENT WITH GUIDANCE (10/24/14) CONTINUOUS INVASIVE MECHANICAL VENTILATION <96 CONSEC HRS (03/07/14) ENTERAL INFUSION OF CONCENTRATED NUT. SUBSTANCES (09/17/12) INSERT ENDOTRACHEAL TUBE (09/17/12) INSERTION OF INFUSION DEV INTO SUP VENA CAVA, PERC APPROACH (12/03/15) INTRODUCE OF OTH THERAP SUBST INTO RESP TRACT, VIA OPENING (05/03/15) NEBULIZER THERAPY (09/17/12) RESPIRATORY VENTILATION, 24-96 CONSECUTIVE HOURS (03/14/16) Family History: States: No Known Family Hx - Social History Hx Tobacco Use: No Hx Alcohol Use: No Hx Substance Use: No - Immunization History Hx Tetanus Toxoid Vaccination: No Hx Influenza Vaccination: No Hx Pneumococcal Vaccination: No Review Of Systems Constitutional: Negative for: Fever, Chills ENT: Positive for: Other (Thick yellow mucous coming out of tracheostomy) Cardiovascular: Negative for: Chest Pain Respiratory: Positive for: Shortness of Breath Gastrointestinal: Negative for: Nausea, Vomiting Genitourinary: Negative for: Dysuria Musculoskeletal: Negative for: Back Pain Skin: Negative for: Rash, Lesions Neurological: Negative for: Weakness Psych: Positive for: Anxiety Physical Exam - Physical Exam Appears: Non-toxic, Other (Moderate discomfort, Morbidly Obese) Skin: Warm, Dry Oral Mucosa: Moist Throat: Other (Trach in place) Neck: Supple Chest: Symmetrical, No Tenderness Cardiovascular: Rhythm Regular, No Murmur Respiratory: No Rales, Rhonchi (Scattered), Wheezing Gastrointestinal/Abdominal: Soft, No Tenderness, Other (Obese) Back: Normal Inspection Extremity: Normal ROM Extremity: Bilateral: Atraumatic, Normal Color And Temperature, Normal ROM DTR: Ankle (R): 0, Ankle (L): 0 Neurological/Psych: Oriented x3, Normal Speech, Normal Cognition Gait: Steady ED Course And Treatment - Laboratory Results Result Diagrams: 07/25/16 00:16 07/25/16 00:16 ECG: Interpreted By Me, Viewed By Me ECG Rhythm: Sinus Rhythm (114), Nonspecific Changes O2 Sat by Pulse Oximetry: 100 Pulse Ox Interpretation: Normal - Radiology CXR: Interpreted by Me, Viewed By Me CXR Interpretation: Yes: Other (trach in place, unchanged from 05/27/16). No: Infiltrates, Fracture, Pnemothorax Progress Note: EKG, blood work and CXR ordered. Nebulizer treatment administered. Disposition Discussed With : Ad Khan Comment: accepted the pt on his service and took over the care at 3:18 AM Doctor Will See Patient In The: Hospital Counseled Patient/Family Regarding: Studies Performed, Diagnosis - Disposition Disposition: HOSPITALIZED Disposition Time: 22:41 Condition: FAIR - POA Present On Arrival: Poor Glycemic Control - Clinical Impression Clinical Impression: Morbid obesity, COPD exacerbation, Mucus plugging of bronchi - Scribe Statement The provider has reviewed the documentation as recorded by the Scribwilliams Trevizo All medical record entries made by the Tessibwilliams were at my direction and personally dictated by me. I have reviewed the chart and agree that the record accurately reflects my personal performance of the history, physical exam, medical decision making, and the department course for this patient. I have also personally directed, reviewed, and agree with the discharge instructions and disposition. Decision To Admit - Pt Status Changed To: Hospital Disposition Of: Observation - . Bed Request Type: Regular Admitting Physician: Ad Khan Patient Diagnosis: Morbid obesity, COPD exacerbation, Mucus plugging of bronchi
[2016-07-24] MEDS: Albuterol-Ipratrop 3 mg / 0.5 (3 ml) UD IH SCH ×3 (23:30→23:50)
[2016-07-25 00:10] LABS: VENOUS BLOOD GAS BASE EXCESS 1.7 mmol/L (0.0-2.0); VENOUS BLOOD GAS PCO2 51 mmHg (40-60); VENOUS BLOOD PH 7.35 (7.32-7.43)
[2016-07-25 00:23] LABS: BASO # 0.1 K/uL (0.0-0.2); BASO % 0.3 % (0.0-2.0); EOS # 0.3 K/uL (0.0-0.7); EOS % 1.7 % (0.0-4.0); HEMATOCRIT 38.4 % (34.0-47.0); LYMPH # 3.8 K/uL (1.0-4.3); LYMPH % 24.7 % (20.0-40.0); MEAN CELL VOLUME 78.8 fL (81.0-99.0); MEAN CORPUSCULAR HEMOGLOBIN 25.5 pg (27.0-31.0); MEAN CORPUSCULAR HGB CONC 32.3 g/dL (33.0-37.0); MEAN PLATELET VOLUME 8.8 fL (7.2-11.7); MONO # 1.3 K/uL (0.0-0.8); MONO % 8.8 % (0.0-10.0); NRBC % 0.1 % (0.0-2.0); RED CELL DISTRIBUTION WIDTH 16.3 % (11.5-14.5); WHITE BLOOD COUNT 15.3 K/uL (4.8-10.8)
[2016-07-25 00:33] LABS: CHLORIDE 102 mmol/L (98-107)
[2016-07-25 00:34] LABS: INR 1.1; SODIUM 139 mmol/L (132-148)
[2016-07-25 00:36] LABS: ALKALINE PHOSPHATASE 130 U/L (38-126); AST/SGOT 18 U/L (14-36); BILIRUBIN,TOTAL 0.7 mg/dL (0.2-1.3); BLOOD UREA NITROGEN 12 mg/dL (7-17); CARBON DIOXIDE 24 mmol/L (22-30); GFR AFRICAN-AMERICAN > 60; GLUCOSE,RANDOM 185 mg/dL (65-105); TOTAL PROTEIN 8.2 g/dL (6.3-8.3)
[2016-07-25 00:37] LABS: ALT/SGPT 14 U/L (9-52); CALCIUM 9.5 mg/dl (8.6-10.4)
[2016-07-25] MEDS ORDERED: Albuterol-Ipratrop 3 mg / 0.5 (3 ml) UD ONE (02:09)
[2016-07-25] MEDS ORDERED: Ipratropium 0.02% Inhal Soln (0.5 mg/2.5 ml) UD IH PRN (03:23)
[2016-07-25] MEDS ORDERED: Azithromycin 500 MG in Sodium Chloride 0.9% 250 ML IVPB STA (03:27)
[2016-07-25] MEDS ORDERED: Azithromycin 500 MG in Sodium Chloride 0.9% 250 ML IVPB SCH (03:30)
[2016-07-25] MEDS ORDERED: Azithromycin 500mg/250ML NS 500 MG/250 ML BAG IVPB ONE (03:33)
[2016-07-25] MEDS: Ipratropium 0.02% Inhal Soln (0.5 mg/2.5 ml) UD IH SCH ×5 (03:38→19:27)
[2016-07-25] MEDS: guaiFENesin 600 mg ER Tab PO SCH ×3 (03:39→17:49)
[2016-07-25] MEDS: Oxycodone/Acetaminophen 5/325 mg Tab PO PRN ×3 (03:42→23:02)
--- NOTE | 2016-07-25 08:19 | RAD ---
PROCEDURE: CHEST RADIOGRAPH, 1 VIEW HISTORY: SOB COMPARISON: 05/27/2016. FINDINGS: LUNGS: Stable interstitial/ pulmonary infiltrates most prominent in the left lower lobe and right upper lobe. PLEURA: No pneumothorax or pleural fluid seen. CARDIOVASCULAR: No radiographic findings to suggest acute or significant cardiovascular disease. OSSEOUS STRUCTURES: No significant abnormalities. VISUALIZED UPPER ABDOMEN: Normal. OTHER FINDINGS: Stable, satisfactory position of tracheostomy device. IMPRESSION: No significant interval change compared to the prior examination(s).
[2016-07-25] MEDS: Enoxaparin 30 mg Syringe SC SCH (09:16)
[2016-07-25] MEDS: (Novolog) Insulin Aspart, Recombinant 100 u/ml 10 ml vial SC SCH ×3 (09:19→16:46)
[2016-07-25] MEDS: MethylPREDNISolone 40 mg Vial IVP SCH (09:19)
[2016-07-25] MEDS ORDERED: Budesonide 0.5 mg/2 ml Inhal Susp UD IH SCH (10:00)
[2016-07-25] MEDS: Budesonide 0.5 mg/2 ml Inhal Susp UD IH SCH (19:28)
[2016-07-25] MEDS: Aztreonam 2 GM in Sodium Chloride 0.9% 100 ML IVPB SCH (22:09)
[2016-07-25] MEDS: (Lantus) Insulin Glargine, Recombinant SC SCH (22:10)
--- NOTE | 2016-07-25 22:53 | CP.PCM.HP ---
History of Present Illness - History of Present Illness History of Present Illness: Cheif Complain: middle ages morbidly obese female with h/o tracheostomy, DM, bronchial asthama, recurrent hospitalizations in past because of pnemonia, pt is admitted again with cough, congestion, shortness of breath,associated with thick ytellowish sputum along with that she c/o generalized aches and pain, fatigue, tiredness, mailaise. Present on Admission - Present on Admission Any Indicators Present on Admission: No Review of Systems - Constitutional Constitutional: Anorexia, Fatigue, Malaise - EENT Nose/Mouth/Throat: Nasal Congestion, Nasal Discharge Additional comments: trach with secreations - Cardiovascular Cardiovascular: Dyspnea - Respiratory Respiratory: Cough, Dyspnea, Dyspnea on Exertion, Excessive Mucous Production, Pain with Coughing Past Patient History - Infectious Disease Hx of Infectious Diseases: None - Tetanus Immunizations Tetanus Immunization: Unknown - Past Medical History & Family History Past Medical History?: Yes - Past Social History Smoking Status: Never Smoked - CARDIAC Hx Congestive Heart Failure: Yes Hx Hypertension: Yes - PULMONARY Hx Chronic Obstructive Pulmonary Disease (COPD): Yes - NEUROLOGICAL Hx Neurological Disorder: Yes Hx Seizures: Yes - HEENT Hx HEENT Problems: Yes Hx Cataracts: Yes - RENAL Hx Chronic Kidney Disease: No - ENDOCRINE/METABOLIC Hx Endocrine Disorders: No Hx Hypothyroidism: No - HEMATOLOGICAL/ONCOLOGICAL Hx Blood Disorders: No Hx Human Immunodeficiency Virus (HIV): No - INTEGUMENTARY Hx Dermatological Problems: No - MUSCULOSKELETAL/RHEUMATOLOGICAL Hx Musculoskeletal Disorders: No Hx Arthritis: No Hx Falls: No Hx Rheumatoid Arthritis: No - GASTROINTESTINAL Hx Gastrointestinal Disorders: Yes Other/Comment: cholecystectomy - GENITOURINARY/GYNECOLOGICAL Hx Genitourinary Disorders: No Hx Sexually Transmitted Disorders: No - PSYCHIATRIC Hx Psychophysiologic Disorder: Yes Hx Anxiety: Yes Hx Bipolar Disorder: Yes Hx Depression: Yes Hx Substance Use: No - SURGICAL HISTORY Hx Surgeries: Yes Hx Appendectomy: Yes Hx Cholecystectomy: Yes - ANESTHESIA Hx Anesthesia: Yes Hx Anesthesia Reactions: No Hx Malignant Hyperthermia: No Meds Home Medications: Home Medication List Medication Instructions Recorded Confirmed Type Benzonatate [Tessalon Perles] 100 mg PO TID sgl 08/02/16 Rx Budesonide [Pulmicort Respules] 0.5 mg IH RQ12 08/02/16 Rx Gabapentin [Neurontin] 800 mg PO TID tab 08/02/16 Rx Gentamicin 100 mg IVPB Q24H #4 vial 08/02/16 Rx Insulin Aspart, Recombinant 9 unit SC TIDAC unit 08/02/16 Rx [Novolog] Insulin Glargine, Recombina 30 unit SC HS unit 08/02/16 Rx [Lantus] Ipratropium 0.02% [Atrovent] 0.5 mg IH Q4 08/02/16 Rx LORazepam [Ativan] 1 mg PO TID PRN tab 08/02/16 Rx Meropenem [Merrem IV] 500 mg IVPB Q8H #15 vial 08/02/16 Rx QUEtiapine [SEROquel] 400 mg PO BID tab 08/02/16 Rx Sertraline [Zoloft] 100 mg PO HS tab 08/02/16 Rx guaiFENesin/Dextromethorphan 5 ml PO Q4H PRN 08/02/16 Rx [Robitussin DM] lamoTRIgine [Lamictal] 100 mg PO HS tab 08/02/16 Rx oxyCODONE/Acetaminophen [Percocet 2 tab PO Q4H PRN #20 tab 08/02/16 Rx 5/325 mg Tab] traZODone [Desyrel] 150 mg PO HS tab 08/02/16 Rx Allergies/Adverse Reactions: Allergies Allergy/AdvReac Type Severity Reaction Status Date / Time aspirin Allergy ANAPHYLAXIS Verified 07/24/16 22:31 ceftriaxone sodium Allergy ANAPHYLAXIS Verified 07/24/16 22:31 [From Rocephin] ibuprofen [From Motrin] Allergy ANAPHYLAXIS Verified 07/24/16 22:31 iodine Allergy ANAPHYLAXIS Verified 07/24/16 22:31 raspberry Allergy ANAPHYLAXIS Verified 07/24/16 22:31 Physical Exam - Constitutional Appears: Chronically Ill - Eye Exam Eye Exam: EOMI, Normal appearance, PERRL Pupil Exam: NORMAL ACCOMODATION, PERRL - ENT Exam ENT Exam: Mucous Membranes Moist Additional comments: on trach with positive secreations - Respiratory Exam Respiratory Exam: Decreased Breath Sounds, Rales, Rhonchi - Cardiovascular Exam Cardiovascular Exam: REGULAR RHYTHM Results - Vital Signs Recent Vital Signs: Last Vital Signs Temp 98.2 F 07/25/16 15:26 Pulse 88 07/25/16 15:26 Resp 20 07/25/16 15:26 BP 118/76 07/25/16 15:26 Pulse Ox 95 07/25/16 15:26 - Labs Result Diagrams: 07/31/16 07:18 07/31/16 07:18 Labs: Laboratory Results - last 24 hr 07/25/16 07/25/16 07/25/16 06:37 11:41 16:14 POC Glucose (mg/dL) 216 H 291 H 321 H 07/25/16 21:14 POC Glucose (mg/dL) 379 H Assessment & Plan (1) Tracheostomy dependence Status: Acute (2) Pneumonia Status: Acute (3) Diabetes mellitus Status: Chronic (4) HTN (hypertension) Status: Chronic
[2016-07-25] MEDS: Clindamycin 300 MG in Sodium Chloride 0.9% 50 ML IVPB SCH (23:29)
[2016-07-26] MEDS: Ipratropium 0.02% Inhal Soln (0.5 mg/2.5 ml) UD IH SCH ×6 (00:57→19:27)
[2016-07-26] MEDS: Clindamycin 300 MG in Sodium Chloride 0.9% 50 ML IVPB SCH ×4 (01:43→19:37)
--- NOTE | 2016-07-26 01:54 | CARD ---
APPROVED REPORT EKG Measurement Heart [id number] ID [id number] <Conclusion> Sinus tachycardia Otherwise normal ECG
[2016-07-26] MEDS: Azithromycin 500 MG in Sodium Chloride 0.9% 250 ML IVPB SCH (02:33)
[2016-07-26] MEDS: Aztreonam 2 GM in Sodium Chloride 0.9% 100 ML IVPB SCH ×3 (03:50→20:27)
[2016-07-26] MEDS: Budesonide 0.5 mg/2 ml Inhal Susp UD IH SCH ×2 (07:26→19:28)
[2016-07-26] MEDS: (Novolog) Insulin Aspart, Recombinant 100 u/ml 10 ml vial SC SCH ×3 (08:10→16:52)
[2016-07-26] MEDS ORDERED: Pneumococcal 23-Valent Vaccine IM ONE (10:00)
[2016-07-26] MEDS: Enoxaparin 30 mg Syringe SC SCH (12:01)
[2016-07-26] MEDS: MethylPREDNISolone 40 mg Vial IVP SCH (12:01)
[2016-07-26] MEDS: guaiFENesin 600 mg ER Tab PO SCH ×2 (12:01→17:49)
[2016-07-26] MEDS: Oxycodone/Acetaminophen 5/325 mg Tab PO PRN ×2 (12:08→16:51)
--- NOTE | 2016-07-26 21:49 | PCM.RRTMUL ---
DIRECTOR STAGE Nurses Assessment - Situation DIRECTOR STAGE Responder Arrival Time:: 21:25 Location:: [address] [place] [address] Room Number:: 564A DIRECTOR STAGE Reason for Call: Respiratory Distress DIRECTOR STAGE Called By: RN - IV IV Inserted during DIRECTOR STAGE?: No - Respiratory Oxygen Delivery Method:: Trach Collar Received Nebulizer Treatments:: Yes Was the Patient Ventilated with Bag/Mask 100% O2?: No Secretions Suctioned?: Yes Was the Patient Intubated?: No Was the Patient Placed on a Ventilator?: No - Ventilator Settings FIO2 (% Oxygen):: 30 - Medication Medications Administered During DIRECTOR STAGE :: Robitussin DM, Tessalon Perles, Ativan - Diagnostic Test Ordered EKG:: Yes Chest X-Ray:: Yes CT Scan:: No - Stat Labs Ordered DIRECTOR STAGE Stat Labs Ordered:: TROPONIN, ABG CPR started during DIRECTOR STAGE?: No - Vital Signs Blood Pressure:: 125/72 Pulse Rate:: 86 Respiratory Rate:: 20 Temperature:: 98.7 F Oxygen Saturation:: 96 - Selina Coma Scale Coma Scale Eye Opening:: Spontaneous Coma Scale Motor:: Obeys Commands Movement Coma Scale Verbal:: Oriented Coma Scale Total:: 15 - Vital Signs at end of DIRECTOR STAGE Blood Pressure:: 125/72 Pulse Rate:: 86 Respiratory Rate:: 20 Temperature:: 98.7 F O2 Sat by Pulse Oximetry:: 96 - Recommendations 5) DIRECTOR STAGE Level of Care Recommendations: Remain in current setting 6) Notifications: Attending Physician I.Reason for DIRECTOR STAGE - A) Acute Change in Patient: (Select all that apply): absent: Staff member or family is worried about patient , Acute change in mental status, Acute change in heart rate less than 50 or greater than 120, Acute change in SBP below, Acute change in respiratory rate less than 8 or greater than 28, Acute change in SpO2 less, Delirium Tremens (DT' s), Uncontrolled Bleeding, Hemoptysis, Hematemesis, Melena, Chest Pain Subjective: HOUSE RESIDENT NOTE DIRECTOR STAGE called at 21:25 for respiratory distress. Pt found "gasping for air by nursing staff." Pt has trach collar placed, and is expressing with her hands she is having "throat tightness." She is able to give only word answers and is using accessory muscles. Respiratory therapist reports similar air-hunger episode this AM. Initial vitals: 162/98, HR 110, RR 32, O2 st: 92%. Pt trach was suctioned, given stat duoneb, tessalon perles and robitussin DM ordered. Pt was given Ativan 0.5mg IV once for anxiety. CXR and EKG ordered. DENI was also drawn. Patient became more calm and relaxed. Vital signs were stable at that time. DIRECTOR STAGE was ended. - B) Neurological Status (Select all that apply): Alert, Responsive, Oriented, Verbal - C) Respiratory Oxygen Delivery Method: Trach Collar @% (5L) Oxygen Flow Rate: 5 - Constitutional Appears: In Acute Distress, Chronically Ill - Head Head Exam: ATRAUMATIC, NORMOCEPHALIC - Eyes Eye Exam: EOMI. absent: Scleral icterus - Respiratory Exam Respiratory Exam: Accessory Muscle Use, Rales, Rhonchi. absent: Chest Wall Tenderness Additional comments: Pt gasping for air using accessory muscles, rhonchi sounds heard throughout lung perez. - Cardiovascular Exam Cardiovascular Exam: Tachycardia, +S1, +S2 - GI/Abdominal Exam GI & Abdominal Exam: Soft. absent: Tenderness - Neurological Exam Neurological Exam: Alert, Awake, Oriented x3 - Extremities Exam Extremities Exam: Normal Inspection. absent: Pedal Edema Plan - A. End of DIRECTOR STAGE Vital Signs: Blood Pressure: 125/72 Pulse Rate: 86 Respiratory Rate: 20 Temperature: 98.7 F O2 Sat by Pulse Oximetry: 96 - B. Assessment of Findings&Treatment Plan f/u CXR and DENI EKG was unremarkable
[2016-07-26] MEDS: guaiFENesin DM 100 mg-10 mg/5 ml UD PO PRN (21:53)
[2016-07-26] MEDS: (Lantus) Insulin Glargine, Recombinant SC SCH (22:07)
[2016-07-27] MEDS: Ipratropium 0.02% Inhal Soln (0.5 mg/2.5 ml) UD IH SCH ×7 (00:01→23:49)
[2016-07-27] MEDS: Oxycodone/Acetaminophen 5/325 mg Tab PO PRN ×2 (02:03→21:28)
[2016-07-27] MEDS: Clindamycin 300 MG in Sodium Chloride 0.9% 50 ML IVPB SCH ×2 (02:09→08:35)
[2016-07-27] MEDS: Azithromycin 500 MG in Sodium Chloride 0.9% 250 ML IVPB SCH (04:09)
[2016-07-27] MEDS: Aztreonam 2 GM in Sodium Chloride 0.9% 100 ML IVPB SCH ×2 (04:10→12:33)
[2016-07-27] MEDS: Budesonide 0.5 mg/2 ml Inhal Susp UD IH SCH ×2 (07:21→20:57)
--- NOTE | 2016-07-27 07:31 | RAD ---
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 Suggestion of a possible external device and or curvilinear opacity projecting over the right anibal thorax inferiorly. Confluent consolidative changes seen within the right hilar and infrahilar regions as well as the left mid to lower lung zone. Additional more consolidative changes at the right lung apex medially. Diffuse increased interstitial lung markings. PLEURA: As above. CARDIOVASCULAR: Cardiomegaly. OSSEOUS STRUCTURES: No significant abnormalities. VISUALIZED UPPER ABDOMEN: Normal. OTHER FINDINGS: None. IMPRESSION: Tracheostomy tube in place. Suggestion of a possible external device and or curvilinear opacity projecting over the right anibal thorax inferiorly. Confluent consolidative changes seen within the right hilar and infrahilar regions as well as the left mid to lower lung zone. Additional more consolidative changes at the right lung apex medially. Diffuse increased interstitial lung markings.
[2016-07-27] MEDS: (Novolog) Insulin Aspart, Recombinant 100 u/ml 10 ml vial SC SCH ×3 (08:35→16:31)
[2016-07-27] MEDS: Enoxaparin 40 mg Syringe SC SCH (11:17)
[2016-07-27] MEDS: MethylPREDNISolone 40 mg Vial IVP SCH (11:17)
--- NOTE | 2016-07-27 13:55 | CP.PCM.CON ---
History of Present Illness - History of Present Illness History of Present Illness: Infectious Disease Consult; HPI;60-year-old female with history off COPD, CHF, HTN, CVA disorder, sleep apnea syndrome and morbid obesity with anxiety symptoms was brought in on 07/25 16 with shortness of breath, dyspnea, mucous plugging and increasing congestion for the last week. Patient was started empirically on IV Azactam, and Zithromax and clindamycin and tracheostomy was changed. Today patient had rapid response and was found gasping by the nursing staff on [place]. She was expressing throat tightness unable to see any word and using her accessory muscles. Oxygen saturation was found to be 92%. In the emergency tracheostomy suctioning was started and patient was given DuoNeb, Tessalon Perles disease and Robitussin DM. Patient also was given Ativan 0.5 mg IV for her anxiety and symptoms. Patient was found to have thick tenacioust sputum and cultures came back positive for Proteus mirabilis multidrug resistant, only sensitive to amikacin. Infectious disease consultation was requested by PMD as patient is reported positive for Proteus mirabilis multidrug resistant and exacerbation of COPD. chest x-ray 07/27/16 +ve tracheostomy with consequent consolidative changes right hilar/infrahilar as well as left mid/lower lung zones with more consolidative changes right lung apex medially. Diffuse increased interstitial lung markings. PMH: Anxiety, Asthma, Bipolar Disorder, Bronchitis, CHF, COPD (ASTHMA, EMPHYSEMA ), Depression, HTN, Pneumonia, Seizures, Sleep Apnea Surgical History: Appendectomy, Cholecystectomy Allergy; ceftriaxone but patient has tolerated IV Zosyn, IV Azactam, IV Merrem in her past admission of 05/21/16. aspirin, ibuprofen, iodine, and félix. FAMILY HISTORY; NONCONTRIBUTORY. Review of Systems - Constitutional Constitutional: Fatigue, Malaise - EENT Eyes: absent: Change in Vision - Cardiovascular Cardiovascular: Diaphoresis, Dyspnea, Leg Edema. absent: Chest Pain - Respiratory Respiratory: Cough, Dyspnea, Wheezing, Excessive Mucous Production, Change in Mucous Color (yellow to greenish) - Gastrointestinal Gastrointestinal: absent: Abdominal Pain, Diarrhea, Nausea, Vomiting - Genitourinary Genitourinary: absent: Difficulty Urinating, Dysuria - Neurological Neurological: absent: Headaches - Hematologic/Lymphatic Hematologic: As Per HPI Past Patient History - Infectious Disease Hx of Infectious Diseases: None - Tetanus Immunizations Tetanus Immunization: Unknown - Past Medical History & Family History Past Medical History?: Yes - Past Social History Smoking Status: Never Smoked - CARDIAC Hx Congestive Heart Failure: Yes Hx Hypertension: Yes - PULMONARY Hx Chronic Obstructive Pulmonary Disease (COPD): Yes - NEUROLOGICAL Hx Neurological Disorder: Yes Hx Seizures: Yes - HEENT Hx HEENT Problems: Yes Hx Cataracts: Yes - RENAL Hx Chronic Kidney Disease: No - ENDOCRINE/METABOLIC Hx Endocrine Disorders: No Hx Hypothyroidism: No - HEMATOLOGICAL/ONCOLOGICAL Hx Blood Disorders: No Hx Human Immunodeficiency Virus (HIV): No - INTEGUMENTARY Hx Dermatological Problems: No - MUSCULOSKELETAL/RHEUMATOLOGICAL Hx Musculoskeletal Disorders: No Hx Arthritis: No Hx Falls: No Hx Rheumatoid Arthritis: No - GASTROINTESTINAL Hx Gastrointestinal Disorders: Yes Other/Comment: cholecystectomy - GENITOURINARY/GYNECOLOGICAL Hx Genitourinary Disorders: No Hx Sexually Transmitted Disorders: No - PSYCHIATRIC Hx Psychophysiologic Disorder: Yes Hx Anxiety: Yes Hx Bipolar Disorder: Yes Hx Depression: Yes Hx Substance Use: No - SURGICAL HISTORY Hx Surgeries: Yes Hx Appendectomy: Yes Hx Cholecystectomy: Yes - ANESTHESIA Hx Anesthesia: Yes Hx Anesthesia Reactions: No Hx Malignant Hyperthermia: No Meds Allergies/Adverse Reactions: Allergies Allergy/AdvReac Type Severity Reaction Status Date / Time aspirin Allergy ANAPHYLAXIS Verified 07/24/16 22:31 ceftriaxone sodium Allergy ANAPHYLAXIS Verified 07/24/16 22:31 [From Rocephin] ibuprofen [From Motrin] Allergy ANAPHYLAXIS Verified 07/24/16 22:31 iodine Allergy ANAPHYLAXIS Verified 07/24/16 22:31 raspberry Allergy ANAPHYLAXIS Verified 07/24/16 22:31 - Medications Medications: Current Medications Benzonatate (Tessalon Perles) 100 mg PO TID [facility] Last Admin: 07/27/16 11:17 Dose: 100 mg Budesonide (Pulmicort Respules) 0.5 mg IH RQ12 [facility] Last Admin: 07/27/16 07:21 Dose: 0.5 mg Enoxaparin Sodium (Lovenox) 40 mg SC DAILY [facility] Last Admin: 07/27/16 11:17 Dose: 40 mg Gabapentin (Neurontin) 800 mg PO TID [facility] Last Admin: 07/27/16 11:17 Dose: 800 mg Guaifenesin/Dextromethorphan (Robitussin Dm) 5 ml PO Q4H PRN PRN Reason: Cough Last Admin: 07/26/16 21:53 Dose: 5 ml Azithromycin 500 mg/ Sodium (Chloride) 250 mls @ 166.667 mls/hr IVPB Q24H [facility] Last Admin: 07/27/16 04:09 Dose: 166.667 mls/hr Aztreonam 2 gm/ Sodium (Chloride) 100 mls @ 100 mls/hr IVPB Q8H [facility] Last Admin: 07/27/16 12:33 Dose: 100 mls/hr Clindamycin Phosphate 300 mg/ (Sodium Chloride) 52 mls @ 100 mls/hr IVPB Q6H [facility] Last Admin: 07/27/16 08:35 Dose: 100 mls/hr Amikacin Sulfate 1,000 mg/ (Sodium Chloride) 104 mls @ 100 mls/hr IV STAT STA Stop: 07/27/16 14:48 Meropenem 1 gm/ Sodium (Chloride) 100 mls @ 100 mls/hr IVPB ONCE ONE Stop: 07/27/16 14:43 Insulin Aspart (Novolog) 9 unit SC TIDAC [facility] Last Admin: 07/27/16 12:32 Dose: 9 unit Insulin Glargine (Lantus) 30 unit SC [facility] Last Admin: 07/26/16 22:07 Dose: 30 units Ipratropium [place] (Atrovent) 0.5 mg IH Q4 [facility] Last Admin: 07/27/16 11:21 Dose: 0.5 mg Lamotrigine (Lamictal) 100 mg PO [facility] Last Admin: 07/26/16 22:06 Dose: 100 mg Lorazepam (Ativan) 1 mg PO TID PRN PRN Reason: Anxiety Methylprednisolone (Solu-Medrol) 40 mg IVP DAILY [facility] Last Admin: 07/27/16 11:17 Dose: 40 mg Oxycodone/Acetaminophen (Percocet 5/325 Mg Tab) 2 tab PO Q4 PRN PRN Reason: Pain, moderate (4-7) Stop: 07/28/16 04:01 Last Admin: 07/27/16 02:03 Dose: 2 tab Quetiapine Fumarate (Seroquel) 400 mg PO BID [facility] Last Admin: 07/27/16 11:17 Dose: 400 mg Sertraline HCl (Zoloft) 100 mg PO [facility] Last Admin: 07/26/16 22:06 Dose: 100 mg Trazodone HCl (Desyrel) 150 mg PO HS [facility] Last Admin: 07/26/16 22:05 Dose: 150 mg Physical Exam - Constitutional Appears: No Acute Distress - Head Exam Head Exam: NORMAL INSPECTION - Eye Exam Eye Exam: EOMI, PERRL - ENT Exam ENT Exam: Mucous Membranes Moist Additional comments: tracheostomy in place - Neck Exam Neck exam: Positive for: Normal Inspection - Respiratory Exam Respiratory Exam: Prolonged Expiratory Phase, Rhonchi, Wheezes - Cardiovascular Exam Cardiovascular Exam: Tachycardia, +S1, +S2 - GI/Abdominal Exam GI & Abdominal Exam: Normal Bowel Sounds, Soft. absent: Organomegaly - Extremities Exam Extremities exam: Positive for: pedal pulses present. Negative for: calf tenderness, pedal edema - Neurological Exam Neurological exam: Alert, CN II-XII Intact, Oriented x3 - Psychiatric Exam Psychiatric exam: Normal Mood - Skin Skin Exam: Normal Color, Warm Results - Vital Signs Recent Vital Signs: Last Vital Signs Temp 97.5 F L 07/27/16 08:00 Pulse 78 07/27/16 08:00 Resp 20 07/27/16 08:00 BP 119/76 07/27/16 08:00 Pulse Ox 100 07/27/16 08:00 - Labs Result Diagrams: 07/25/16 00:16 07/25/16 00:16 Labs: Laboratory Results - last 24 hr 07/26/16 07/26/16 07/26/16 16:50 21:09 21:51 POC Glucose (mg/dL) 318 H 391 H Total Creatine Kinase 49 CK-MB (Mass) 1.06 Troponin I, Quant < 0.0120 07/27/16 07/27/16 06:37 11:44 POC Glucose (mg/dL) 258 H 115 H Total Creatine Kinase CK-MB (Mass) Troponin I, Quant - Imaging and Cardiology Chest x-ray Status: Report reviewed by me (07/27/16 see reports.) Assessment & Plan (1) Sepsis Status: Acute (2) Pneumonia Status: Acute (3) Mucus plugging of bronchi Status: Acute (4) COPD exacerbation Status: Acute (5) Diabetes mellitus with neuropathy Status: Acute (6) Dyspnea Status: Acute (7) Morbid obesity Status: Acute - Assessment and Plan (Free Text) Plan: PLAN: PANCULTURE. CRP,ESR. START IV MERREM 1GM STAT DOSE FOLLOWED BY 500 MG EVERY 8 HOURLY 07/27/16. STAT IV AMIKACIN 1000MG IVPB STAT DOSE.07/27/16. CONTINUE IV AMIKACIN 500 MG ONCE A DAY DAILY X 2 DOSES WILL ASK MICROBIOLOGY TO CHECK FOR SENSITIVITY OF PROTEUS WITH iv COLISTIN, MERREM. STRICT CONTACT AND RESPIRATORY PRECAUTIONS ESPECIALLY ON SUCTIONING. FOLLOW-UP RENAL FUNCTIONS CLOSELY. PULMONARY TOILET WILL FOLLOW ALONG WITH YOU WHILE PATIENT IN HOSPITAL.
--- NOTE | 2016-07-27 14:08 | CP.PCM.PN ---
Subjective - Date & Time of Evaluation Date of Evaluation: 07/26/16 - Subjective Subjective: pt is congested, coughing, wheezing, sputum positive for gram neg bacilli, sensitivity pending Objective - Vital Signs/Intake and Output Vital Signs (last 24 hours): Temp Pulse Resp BP Pulse Ox 97.5 F L 78 20 119/76 100 07/27/16 08:00 07/27/16 08:00 07/27/16 08:00 07/27/16 08:00 07/27/16 08:00 - Medications Medications: Current Medications Benzonatate (Tessalon Perles) 100 mg PO TID [facility] Last Admin: 07/27/16 11:17 Dose: 100 mg Budesonide (Pulmicort Respules) 0.5 mg IH RQ12 [facility] Last Admin: 07/27/16 07:21 Dose: 0.5 mg Enoxaparin Sodium (Lovenox) 40 mg SC DAILY [facility] Last Admin: 07/27/16 11:17 Dose: 40 mg Gabapentin (Neurontin) 800 mg PO TID [facility] Last Admin: 07/27/16 11:17 Dose: 800 mg Guaifenesin/Dextromethorphan (Robitussin Dm) 5 ml PO Q4H PRN PRN Reason: Cough Last Admin: 07/26/16 21:53 Dose: 5 ml Azithromycin 500 mg/ Sodium (Chloride) 250 mls @ 166.667 mls/hr IVPB Q24H [facility] Last Admin: 07/27/16 04:09 Dose: 166.667 mls/hr Aztreonam 2 gm/ Sodium (Chloride) 100 mls @ 100 mls/hr IVPB Q8H [facility] Last Admin: 07/27/16 12:33 Dose: 100 mls/hr Clindamycin Phosphate 300 mg/ (Sodium Chloride) 52 mls @ 100 mls/hr IVPB Q6H [facility] Last Admin: 07/27/16 08:35 Dose: 100 mls/hr Amikacin Sulfate 1,000 mg/ (Sodium Chloride) 104 mls @ 100 mls/hr IV STAT STA Stop: 07/27/16 14:48 Meropenem 1 gm/ Sodium (Chloride) 100 mls @ 100 mls/hr IVPB ONCE ONE Stop: 07/27/16 14:43 Insulin Aspart (Novolog) 9 unit SC TIDAC [facility] Last Admin: 07/27/16 12:32 Dose: 9 unit Insulin Glargine (Lantus) 30 unit SC [facility] Last Admin: 07/26/16 22:07 Dose: 30 units Ipratropium [place] (Atrovent) 0.5 mg IH Q4 [facility] Last Admin: 07/27/16 11:21 Dose: 0.5 mg Lamotrigine (Lamictal) 100 mg PO [facility] Last Admin: 07/26/16 22:06 Dose: 100 mg Lorazepam (Ativan) 1 mg PO TID PRN PRN Reason: Anxiety Methylprednisolone (Solu-Medrol) 40 mg IVP DAILY [facility] Last Admin: 07/27/16 11:17 Dose: 40 mg Oxycodone/Acetaminophen (Percocet 5/325 Mg Tab) 2 tab PO Q4 PRN PRN Reason: Pain, moderate (4-7) Stop: 07/28/16 04:01 Last Admin: 07/27/16 02:03 Dose: 2 tab Quetiapine Fumarate (Seroquel) 400 mg PO BID [facility] Last Admin: 07/27/16 11:17 Dose: 400 mg Sertraline HCl (Zoloft) 100 mg PO [facility] Last Admin: 07/26/16 22:06 Dose: 100 mg Trazodone HCl (Desyrel) 150 mg PO [facility] Last Admin: 07/26/16 22:05 Dose: 150 mg - Labs Labs: PT 11.8 SECONDS (9.7-12.2) 07/25/16 00:16 INR 1.1 07/25/16 00:16 APTT 34 SECONDS (21-34) 07/25/16 00:16 - Constitutional Appears: Chronically Ill - Head Exam Head Exam: ATRAUMATIC, NORMAL INSPECTION, NORMOCEPHALIC - Eye Exam Eye Exam: EOMI, Normal appearance, PERRL Pupil Exam: NORMAL ACCOMODATION, PERRL - Respiratory Exam Respiratory Exam: Decreased Breath Sounds, Rales, Rhonchi Additional comments: on trach with secreations - Cardiovascular Exam Cardiovascular Exam: REGULAR RHYTHM, +S1, +S2. absent: Murmur Assessment and Plan (1) COPD exacerbation Status: Acute (2) Morbid obesity Status: Acute (3) Pneumonia Status: Acute (4) Tracheostomy dependence Status: Acute (5) Diabetes mellitus Status: Chronic (6) HTN (hypertension) Status: Chronic - Assessment and Plan (Free Text) Plan: on azectam, clindamycin, nebulizer, tracheal suctioning sliding scale insulin
[2016-07-27] MEDS ORDERED: Meropenem 1 GM in Sodium Chloride 0.9% 100 ML IVPB ONE (16:00)
[2016-07-27] MEDS: (Lantus) Insulin Glargine, Recombinant SC SCH (21:27)
--- NOTE | 2016-07-27 23:13 | CP.PCM.PN ---
Subjective - Date & Time of Evaluation Date of Evaluation: 07/27/16 - Subjective Subjective: patient is reported positive for Proteus mirabilis multidrug resistant and exacerbation of COPD. chest x-ray 07/27/16 +ve tracheostomy with consequent consolidative changes right hilar/infrahilar as well as left mid/lower lung zones with more consolidative changes right lung apex medially. Diffuse increased interstitial lung markings.pulmonary and ID was consulted Objective - Vital Signs/Intake and Output Vital Signs (last 24 hours): Temp Pulse Resp BP Pulse Ox 98.5 F 82 22 107/70 96 07/27/16 15:11 07/27/16 15:11 07/27/16 15:11 07/27/16 15:11 07/27/16 15:11 Intake and Output: 07/27/16 07/28/16 18:59 06:59 Intake Total 450 Balance 450 - Medications Medications: Current Medications Benzonatate (Tessalon Perles) 100 mg PO TID [facility] Last Admin: 07/27/16 17:59 Dose: 100 mg Budesonide (Pulmicort Respules) 0.5 mg IH RQ12 [facility] Last Admin: 07/27/16 20:57 Dose: 0.5 mg Enoxaparin Sodium (Lovenox) 40 mg SC DAILY [facility] Last Admin: 07/27/16 11:17 Dose: 40 mg Gabapentin (Neurontin) 800 mg PO TID [facility] Last Admin: 07/27/16 17:59 Dose: 800 mg Guaifenesin/Dextromethorphan (Robitussin Dm) 5 ml PO Q4H PRN PRN Reason: Cough Last Admin: 07/26/16 21:53 Dose: 5 ml Meropenem 500 mg/ Sodium (Chloride) 100 mls @ 200 mls/hr IVPB Q8H [facility] Amikacin Sulfate 500 mg/ (Sodium Chloride) 102 mls @ 100 mls/hr IV Q24H [facility] Stop: 07/30/16 00:02 Insulin Aspart (Novolog) 9 unit SC TIDAC [facility] Last Admin: 07/27/16 16:31 Dose: 9 unit Insulin Glargine (Lantus) 30 unit SC HS [facility] Last Admin: 07/27/16 21:27 Dose: 30 units Ipratropium [place] (Atrovent) 0.5 mg IH Q4 [facility] Last Admin: 07/27/16 20:56 Dose: 0.5 mg Lamotrigine (Lamictal) 100 mg PO [facility] Last Admin: 07/27/16 21:29 Dose: 100 mg Lorazepam (Ativan) 1 mg PO TID PRN PRN Reason: Anxiety Last Admin: 07/27/16 14:09 Dose: 1 mg Methylprednisolone (Solu-Medrol) 40 mg IVP DAILY [facility] Last Admin: 07/27/16 11:17 Dose: 40 mg Oxycodone/Acetaminophen (Percocet 5/325 Mg Tab) 2 tab PO Q4 PRN PRN Reason: Pain, moderate (4-7) Stop: 07/28/16 04:01 Last Admin: 07/27/16 21:28 Dose: 2 tab Quetiapine Fumarate (Seroquel) 400 mg PO BID [facility] Last Admin: 07/27/16 17:59 Dose: 400 mg Sertraline HCl (Zoloft) 100 mg PO [facility] Last Admin: 07/27/16 21:29 Dose: 100 mg Trazodone HCl (Desyrel) 150 mg PO [facility] Last Admin: 07/27/16 21:29 Dose: 150 mg - Labs Labs: PT 11.8 SECONDS (9.7-12.2) 07/25/16 00:16 INR 1.1 07/25/16 00:16 APTT 34 SECONDS (21-34) 07/25/16 00:16 - Constitutional Appears: Chronically Ill - Head Exam Head Exam: ATRAUMATIC, NORMAL INSPECTION, NORMOCEPHALIC - Eye Exam Eye Exam: EOMI, Normal appearance, PERRL Pupil Exam: NORMAL ACCOMODATION, PERRL - ENT Exam ENT Exam: Mucous Membranes Moist, Normal Exam - Neck Exam Neck Exam: Normal Inspection - Respiratory Exam Respiratory Exam: Decreased Breath Sounds, Rales, Rhonchi, Wheezes - Cardiovascular Exam Cardiovascular Exam: REGULAR RHYTHM, +S1, +S2. absent: Murmur - GI/Abdominal Exam GI & Abdominal Exam: Soft, Normal Bowel Sounds. absent: Tenderness Assessment and Plan (1) COPD exacerbation Status: Acute (2) Morbid obesity Status: Acute (3) Pneumonia Assessment & Plan: PANCULTURE. CRP,ESR. START IV MERREM 1GM STAT DOSE FOLLOWED BY 500 MG EVERY 8 HOURLY 07/27/16. STAT IV AMIKACIN 1000MG IVPB STAT DOSE.6/1/17. CONTINUE IV AMIKACIN 500 MG ONCE A DAY DAILY X 2 DOSES WILL ASK MICROBIOLOGY TO CHECK FOR SENSITIVITY OF PROTEUS WITH iv COLISTIN, MERREM. STRICT CONTACT AND RESPIRATORY PRECAUTIONS ESPECIALLY ON SUCTIONING. FOLLOW-UP RENAL FUNCTIONS CLOSELY. PULMONARY TOILET WILL FOLLOW ALONG WITH YOU WHILE PATIENT IN HOSPITAL. Status: Acute (4) Tracheostomy dependence Status: Acute (5) Chronic pain Status: Acute (6) Diabetes mellitus Status: Chronic (7) HTN (hypertension) Status: Chronic
[2016-07-28] MEDS: Meropenem 500 MG in Sodium Chloride 0.9% 100 ML IVPB SCH ×3 (00:41→17:37)
[2016-07-28] MEDS: Ipratropium 0.02% Inhal Soln (0.5 mg/2.5 ml) UD IH SCH ×5 (03:01→20:46)
[2016-07-28] MEDS: Oxycodone/Acetaminophen 5/325 mg Tab PO PRN ×2 (03:51→17:57)
[2016-07-28] MEDS: (Novolog) Insulin Aspart, Recombinant 100 u/ml 10 ml vial SC SCH ×3 (08:00→17:36)
[2016-07-28] MEDS: guaiFENesin DM 100 mg-10 mg/5 ml UD PO PRN (08:20)
[2016-07-28] MEDS: Budesonide 0.5 mg/2 ml Inhal Susp UD IH SCH ×2 (08:20→20:46)
[2016-07-28 08:45] LABS: CHLORIDE 100 mmol/L (98-107); POTASSIUM 4.7 mmol/L (3.6-5.2); SODIUM 138 mmol/L (132-148)
[2016-07-28 08:47] LABS: BASO # 0.1 K/uL (0.0-0.2); BASO % 0.5 % (0.0-2.0); EOS # 0.1 K/uL (0.0-0.7); EOS % 0.7 % (0.0-4.0); HEMATOCRIT 37.3 % (34.0-47.0); LYMPH # 2.7 K/uL (1.0-4.3); LYMPH % 27.4 % (20.0-40.0); MEAN CELL VOLUME 79.9 fL (81.0-99.0); MEAN CORPUSCULAR HEMOGLOBIN 25.5 pg (27.0-31.0); MEAN CORPUSCULAR HGB CONC 31.9 g/dL (33.0-37.0); MEAN PLATELET VOLUME 8.2 fL (7.2-11.7); MONO # 0.9 K/uL (0.0-0.8); MONO % 8.9 % (0.0-10.0); NRBC % 0.1 % (0.0-2.0); RED CELL DISTRIBUTION WIDTH 16.2 % (11.5-14.5); WHITE BLOOD COUNT 9.7 K/uL (4.8-10.8)
[2016-07-28 08:48] LABS: ALB/GLOB RATIO 0.9 (1.0-2.1); ALKALINE PHOSPHATASE 90 U/L (38-126); ALT/SGPT 9 U/L (9-52); AST/SGOT 19 U/L (14-36); BILIRUBIN,DIRECT 0.6 mg/dL (0.0-0.4); BILIRUBIN,TOTAL 0.6 mg/dL (0.2-1.3); BLOOD UREA NITROGEN 17 mg/dL (7-17); CALCIUM 8.4 mg/dl (8.6-10.4); CARBON DIOXIDE 29 mmol/L (22-30); GFR AFRICAN-AMERICAN > 60; GLUCOSE,RANDOM 107 mg/dL (65-105); TOTAL PROTEIN 7.6 g/dL (6.3-8.3)
[2016-07-28] MEDS: MethylPREDNISolone 40 mg Vial IVP SCH (11:07)
[2016-07-28] MEDS: Enoxaparin 40 mg Syringe SC SCH (11:07)
--- NOTE | 2016-07-28 18:13 | CP.PCM.PN ---
Subjective - Date & Time of Evaluation Date of Evaluation: 07/28/16 Time of Evaluation: 18:13 - Subjective Subjective: afebrile +ve TRACHEOSTOMY IN PLACE. [employer]ICK [employer]. TRACHEAL ASPIRATE +VE mORGANELLA MORGANII. SPUTUM CULTURE POSITIVE MDR -pROTEUS [id number]/IMIPENEM S - mERREM mic0.5 , AMIKACIN BECKA-4 Objective - Vital Signs/Intake and Output Vital Signs (last 24 hours): Temp Pulse Resp BP Pulse Ox 98.0 F 76 22 110/73 94 L 07/28/16 15:48 07/28/16 15:48 07/28/16 15:48 07/28/16 15:48 07/28/16 15:48 Intake and Output: 07/28/16 07/28/16 06:59 18:59 Intake Total 500 Balance 500 - Medications Medications: Current Medications Benzonatate (Tessalon Perles) 100 mg PO TID [facility] Last Admin: 07/28/16 17:37 Dose: 100 mg Budesonide (Pulmicort Respules) 0.5 mg IH RQ12 [facility] Last Admin: 07/28/16 08:20 Dose: 0.5 mg Enoxaparin Sodium (Lovenox) 40 mg SC DAILY [facility] Last Admin: 07/28/16 11:07 Dose: 40 mg Gabapentin (Neurontin) 800 mg PO TID [facility] Last Admin: 07/28/16 17:37 Dose: 800 mg Guaifenesin/Dextromethorphan (Robitussin Dm) 5 ml PO Q4H PRN PRN Reason: Cough Last Admin: 07/28/16 08:20 Dose: 5 ml Meropenem 500 mg/ Sodium (Chloride) 100 mls @ 200 mls/hr IVPB Q8H [facility] Last Admin: 07/28/16 17:37 Dose: 200 mls/hr Amikacin Sulfate 500 mg/ (Sodium Chloride) 102 mls @ 100 mls/hr IV Q24H [facility] Stop: 07/30/16 00:02 Insulin Aspart (Novolog) 9 unit SC TIDAC [facility] Last Admin: 07/28/16 17:36 Dose: 9 unit Insulin Glargine (Lantus) 30 unit SC HS [facility] Last Admin: 07/27/16 21:27 Dose: 30 units Ipratropium [place] (Atrovent) 0.5 mg IH Q4 [facility] Last Admin: 07/28/16 16:19 Dose: 0.5 mg Lamotrigine (Lamictal) 100 mg PO [facility] Last Admin: 07/27/16 21:29 Dose: 100 mg Lorazepam (Ativan) 1 mg PO TID PRN PRN Reason: Anxiety Last Admin: 07/28/16 00:50 Dose: 1 mg Methylprednisolone (Solu-Medrol) 40 mg IVP DAILY [facility] Last Admin: 07/28/16 11:07 Dose: 40 mg Oxycodone/Acetaminophen (Percocet 5/325 Mg Tab) 2 tab PO Q4H PRN PRN Reason: Pain, moderate (4-7) Stop: 07/31/16 17:42 Last Admin: 07/28/16 17:57 Dose: 2 tab Quetiapine Fumarate (Seroquel) 400 mg PO BID [facility] Last Admin: 07/28/16 17:37 Dose: 400 mg Sertraline HCl (Zoloft) 100 mg PO [facility] Last Admin: 07/27/16 21:29 Dose: 100 mg Trazodone HCl (Desyrel) 150 mg PO [facility] Last Admin: 07/27/16 21:29 Dose: 150 mg - Labs Labs: 07/28/16 08:19 07/28/16 08:19 PT 11.8 SECONDS (9.7-12.2) 07/25/16 00:16 INR 1.1 07/25/16 00:16 APTT 34 SECONDS (21-34) 07/25/16 00:16 - Constitutional Appears: No Acute Distress - Eye Exam Eye Exam: EOMI, PERRL - ENT Exam ENT Exam: Mucous Membranes Moist Additional comments: TRACHEOSTOMY IN PLACE (CHANGED 07/26/16 ) - Respiratory Exam Respiratory Exam: Prolonged Expiratory Phase (BILATERALLY), Rhonchi - Cardiovascular Exam Cardiovascular Exam: REGULAR RHYTHM (.), +S1, +S2 - GI/Abdominal Exam GI & Abdominal Exam: Soft, Normal Bowel Sounds (OBESE) - Extremities Exam Extremities Exam: Pedal Edema. absent: Calf Tenderness - Neurological Exam Neurological Exam: Awake, Oriented x3 - Psychiatric Exam Psychiatric exam: Normal Mood - Skin Skin Exam: Normal Color, Warm Assessment and Plan (1) Sepsis Status: Acute (2) Pneumonia Status: Acute (3) Mucus plugging of bronchi Status: Acute (4) COPD exacerbation Status: Acute (5) Diabetes mellitus with neuropathy Status: Acute (6) Dyspnea Status: Acute (7) Morbid obesity Status: Acute - Assessment and Plan (Free Text) Plan: ON IV MERREM 1GM STAT DOSE FOLLOWED BY 500 MG EVERY 8 HOURLY 07/27/16. F/U mERREM 500 EVERY 8 HOURLY. STAT IV AMIKACIN 1000MG IVPB STAT DOSE.07/27/16. CONTINUE IV AMIKACIN 500 MG ONCE A DAY DAILY X 2 DOSES 07/28, 07/29. STRICT CONTACT AND RESPIRATORY PRECAUTIONS ESPECIALLY ON SUCTIONING. FOLLOW-UP RENAL FUNCTIONS CLOSELY. PULMONARY TOILET
[2016-07-28] MEDS: (Lantus) Insulin Glargine, Recombinant SC SCH (22:11)
[2016-07-29] MEDS: Oxycodone/Acetaminophen 5/325 mg Tab PO PRN ×3 (00:15→15:59)
[2016-07-29] MEDS: Ipratropium 0.02% Inhal Soln (0.5 mg/2.5 ml) UD IH SCH ×6 (00:17→21:32)
[2016-07-29] MEDS: Meropenem 500 MG in Sodium Chloride 0.9% 100 ML IVPB SCH ×4 (00:29→23:45)
--- NOTE | 2016-07-29 01:21 | CP.PCM.PN ---
Subjective - Date & Time of Evaluation Date of Evaluation: 07/28/16 - Subjective Subjective: Pt seen and examined, afebrile +ve TRACHEOSTOMY IN PLACE. [employer]. TRACHEAL ASPIRATE +VE mORGANELLA MORGANII. SPUTUM CULTURE POSITIVE MDR -pROTEUS [id number]/IMIPENEM S - mERREM mic0.5 , AMIKACIN BECKA-4 Objective - Vital Signs/Intake and Output Vital Signs (last 24 hours): Temp Pulse Resp BP Pulse Ox 98 F 67 20 105/67 96 07/29/16 00:00 07/29/16 00:00 07/29/16 00:00 07/29/16 00:00 07/29/16 00:00 Intake and Output: 07/28/16 07/29/16 18:59 06:59 Intake Total 500 Balance 500 - Medications Medications: Current Medications Benzonatate (Tessalon Perles) 100 mg PO TID [facility] Last Admin: 07/28/16 17:37 Dose: 100 mg Budesonide (Pulmicort Respules) 0.5 mg IH RQ12 [facility] Last Admin: 07/28/16 20:46 Dose: 0.5 mg Enoxaparin Sodium (Lovenox) 40 mg SC DAILY [facility] Last Admin: 07/28/16 11:07 Dose: 40 mg Gabapentin (Neurontin) 800 mg PO TID [facility] Last Admin: 07/28/16 17:37 Dose: 800 mg Guaifenesin/Dextromethorphan (Robitussin Dm) 5 ml PO Q4H PRN PRN Reason: Cough Last Admin: 07/28/16 08:20 Dose: 5 ml Meropenem 500 mg/ Sodium (Chloride) 100 mls @ 200 mls/hr IVPB Q8H [facility] Last Admin: 07/29/16 00:29 Dose: 200 mls/hr Amikacin Sulfate 500 mg/ (Sodium Chloride) 102 mls @ 100 mls/hr IV Q24H [facility] Stop: 07/30/16 00:02 Last Admin: 07/28/16 22:12 Dose: 100 mls/hr Insulin Aspart (Novolog) 9 unit SC TIDAC [facility] Last Admin: 07/28/16 17:36 Dose: 9 unit Insulin Glargine (Lantus) 30 unit SC HS [facility] Last Admin: 07/28/16 22:11 Dose: 30 units Ipratropium [place] (Atrovent) 0.5 mg IH Q4 [facility] Last Admin: 07/29/16 00:17 Dose: 0.5 mg Lamotrigine (Lamictal) 100 mg PO [facility] Last Admin: 07/28/16 21:38 Dose: 100 mg Lorazepam (Ativan) 1 mg PO TID PRN PRN Reason: Anxiety Last Admin: 07/28/16 00:50 Dose: 1 mg Methylprednisolone (Solu-Medrol) 40 mg IVP DAILY [facility] Last Admin: 07/28/16 11:07 Dose: 40 mg Oxycodone/Acetaminophen (Percocet 5/325 Mg Tab) 2 tab PO Q4H PRN PRN Reason: Pain, moderate (4-7) Stop: 07/31/16 17:42 Last Admin: 07/29/16 00:15 Dose: 2 tab Quetiapine Fumarate (Seroquel) 400 mg PO BID [facility] Last Admin: 07/28/16 17:37 Dose: 400 mg Sertraline HCl (Zoloft) 100 mg PO [facility] Last Admin: 07/28/16 21:39 Dose: 100 mg Trazodone HCl (Desyrel) 150 mg PO [facility] Last Admin: 07/28/16 21:38 Dose: 150 mg - Labs Labs: 07/28/16 08:19 07/28/16 08:19 PT 11.8 SECONDS (9.7-12.2) 07/25/16 00:16 INR 1.1 07/25/16 00:16 APTT 34 SECONDS (21-34) 07/25/16 00:16 - Constitutional Appears: No Acute Distress, Chronically Ill - Head Exam Head Exam: ATRAUMATIC, NORMAL INSPECTION, NORMOCEPHALIC - Eye Exam Eye Exam: EOMI, Normal appearance, PERRL Pupil Exam: NORMAL ACCOMODATION, PERRL - ENT Exam ENT Exam: Mucous Membranes Moist Additional comments: +ve TRACHEOSTOMY IN PLACE. [employer]. - Respiratory Exam Respiratory Exam: Decreased Breath Sounds, Rales, Rhonchi, Wheezes - Cardiovascular Exam Cardiovascular Exam: REGULAR RHYTHM, +S1, +S2. absent: Murmur - GI/Abdominal Exam GI & Abdominal Exam: Soft, Normal Bowel Sounds. absent: Tenderness - Rectal Exam Rectal Exam: Deferred Assessment and Plan (1) COPD exacerbation Status: Acute (2) Morbid obesity Status: Acute (3) Pneumonia Status: Acute (4) Tracheostomy dependence Status: Acute (5) Chronic pain Status: Acute (6) Diabetes mellitus Status: Chronic (7) HTN (hypertension) Status: Chronic
[2016-07-29] MEDS: Budesonide 0.5 mg/2 ml Inhal Susp UD IH SCH ×2 (07:43→21:32)
[2016-07-29] MEDS: (Novolog) Insulin Aspart, Recombinant 100 u/ml 10 ml vial SC SCH ×3 (08:35→17:00)
[2016-07-29] MEDS: Enoxaparin 40 mg Syringe SC SCH (10:06)
[2016-07-29] MEDS: MethylPREDNISolone 40 mg Vial IVP SCH (10:06)
--- NOTE | 2016-07-29 13:38 | CP.PCM.PN ---
Subjective - Date & Time of Evaluation Date of Evaluation: 07/29/16 Time of Evaluation: 13:38 - Subjective Subjective: AFEBRILE C/O [employer] AND THICK PER PT Objective - Vital Signs/Intake and Output Vital Signs (last 24 hours): Temp Pulse Resp BP Pulse Ox 97.3 F L 68 20 141/80 96 07/29/16 08:00 07/29/16 08:00 07/29/16 08:00 07/29/16 08:00 07/29/16 08:00 Intake and Output: 07/29/16 07/29/16 06:59 18:59 Intake Total 300 Balance 300 - Medications Medications: Current Medications Benzonatate (Tessalon Perles) 100 mg PO TID [facility] Last Admin: 07/29/16 10:07 Dose: 100 mg Budesonide (Pulmicort Respules) 0.5 mg IH RQ12 [facility] Last Admin: 07/29/16 07:43 Dose: 0.5 mg Enoxaparin Sodium (Lovenox) 40 mg SC DAILY [facility] Last Admin: 07/29/16 10:06 Dose: 40 mg Gabapentin (Neurontin) 800 mg PO TID [facility] Last Admin: 07/29/16 10:06 Dose: 800 mg Guaifenesin/Dextromethorphan (Robitussin Dm) 5 ml PO Q4H PRN PRN Reason: Cough Last Admin: 07/28/16 08:20 Dose: 5 ml Meropenem 500 mg/ Sodium (Chloride) 100 mls @ 200 mls/hr IVPB Q8H [facility] Last Admin: 07/29/16 08:21 Dose: 200 mls/hr Amikacin Sulfate 500 mg/ (Sodium Chloride) 102 mls @ 100 mls/hr IV Q24H [facility] Stop: 07/30/16 00:02 Last Admin: 07/28/16 22:12 Dose: 100 mls/hr Insulin Aspart (Novolog) 9 unit SC TIDAC [facility] Last Admin: 07/29/16 08:35 Dose: 9 unit Insulin Glargine (Lantus) 30 unit SC HS [facility] Last Admin: 07/28/16 22:11 Dose: 30 units Ipratropium [place] (Atrovent) 0.5 mg IH Q4 [facility] Last Admin: 07/29/16 07:43 Dose: 0.5 mg Lamotrigine (Lamictal) 100 mg PO [facility] Last Admin: 07/28/16 21:38 Dose: 100 mg Lorazepam (Ativan) 1 mg PO TID PRN PRN Reason: Anxiety Last Admin: 07/28/16 00:50 Dose: 1 mg Methylprednisolone (Solu-Medrol) 40 mg IVP DAILY [facility] Last Admin: 07/29/16 10:06 Dose: 40 mg Oxycodone/Acetaminophen (Percocet 5/325 Mg Tab) 2 tab PO Q4H PRN PRN Reason: Pain, moderate (4-7) Stop: 07/31/16 17:42 Last Admin: 07/29/16 10:15 Dose: 2 tab Quetiapine Fumarate (Seroquel) 400 mg PO BID [facility] Last Admin: 07/29/16 10:06 Dose: 400 mg Sertraline HCl (Zoloft) 100 mg PO [facility] Last Admin: 07/28/16 21:39 Dose: 100 mg Trazodone HCl (Desyrel) 150 mg PO [facility] Last Admin: 07/28/16 21:38 Dose: 150 mg - Labs Labs: 07/28/16 08:19 07/28/16 08:19 PT 11.8 SECONDS (9.7-12.2) 07/25/16 00:16 INR 1.1 07/25/16 00:16 APTT 34 SECONDS (21-34) 07/25/16 00:16 - Constitutional Appears: No Acute Distress - Eye Exam Eye Exam: EOMI, PERRL - ENT Exam ENT Exam: Mucous Membranes Dry - Neck Exam Neck Exam: Normal Inspection - Respiratory Exam Respiratory Exam: Prolonged Expiratory Phase, Rhonchi - Cardiovascular Exam Cardiovascular Exam: REGULAR RHYTHM, +S1, +S2 - GI/Abdominal Exam GI & Abdominal Exam: Soft, Normal Bowel Sounds - Extremities Exam Extremities Exam: Pedal Edema. absent: Calf Tenderness - Neurological Exam Neurological Exam: Awake, CN II-XII Intact, Oriented x3 - Skin Skin Exam: Normal Color, Warm Assessment and Plan (1) Sepsis Status: Acute (2) Pneumonia Status: Acute (3) Mucus plugging of bronchi Status: Acute (4) COPD exacerbation Status: Acute (5) Diabetes mellitus with neuropathy Status: Acute (6) Dyspnea Status: Acute (7) Morbid obesity Status: Acute - Assessment and Plan (Free Text) Plan: ON IV MERREM 1GM STAT DOSE FOLLOWED BY 500 MG EVERY 8 HOURLY 07/27/16. F/U mERREM 500 EVERY 8 HOURLY. STAT IV AMIKACIN 1000MG IVPB STAT DOSE.07/27/16. CONTINUE IV AMIKACIN 500 MG ONCE A DAY DAILY X 2 DOSES 07/28, 07/29. STRICT CONTACT AND RESPIRATORY PRECAUTIONS ESPECIALLY ON SUCTIONING. FOLLOW-UP RENAL FUNCTIONS CLOSELY. PULMONARY TOILET
--- NOTE | 2016-07-29 18:40 | RAD ---
HISTORY: pna COMPARISON: Comparison made with prior study 07/26/2016 FINDINGS: LUNGS: In situ soft tracheostomy tube noted. Patchy infiltrates seen in the left lung base with mild right basilar atelectasis. PLEURA: No significant pleural effusion identified, no pneumothorax apparent. CARDIOVASCULAR: Normal. OSSEOUS STRUCTURES: No significant abnormalities. VISUALIZED UPPER ABDOMEN: Normal. OTHER FINDINGS: None. IMPRESSION: In situ soft tracheostomy tube. Patchy infiltrate left lung base
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
[2016-07-29] MEDS: (Lantus) Insulin Glargine, Recombinant SC SCH (21:57)
[2016-07-30] MEDS: Ipratropium 0.02% Inhal Soln (0.5 mg/2.5 ml) UD IH SCH ×5 (01:04→23:56)
[2016-07-30] MEDS: Oxycodone/Acetaminophen 5/325 mg Tab PO PRN ×3 (01:44→16:32)
--- NOTE | 2016-07-30 04:12 | CP.PCM.PN ---
Subjective - Date & Time of Evaluation Date of Evaluation: 07/29/16 Time of Evaluation: 21:00 - Subjective Subjective: Pt seen and evaluated at bedside, less cough, less short of breath CXR obtained looks much better then before, still c/o yellowish sputum Objective - Vital Signs/Intake and Output Vital Signs (last 24 hours): Temp Pulse Resp BP Pulse Ox 98 F 70 20 142/80 95 07/29/16 23:49 07/29/16 23:49 07/29/16 23:49 07/29/16 23:49 07/29/16 23:49 Intake and Output: 07/29/16 07/30/16 18:59 06:59 Intake Total 680 120 Output Total 1000 Balance 680 -880 - Medications Medications: Current Medications Benzonatate (Tessalon Perles) 100 mg PO TID [facility] Last Admin: 07/29/16 17:47 Dose: 100 mg Budesonide (Pulmicort Respules) 0.5 mg IH RQ12 [facility] Last Admin: 07/29/16 21:32 Dose: 0.5 mg Enoxaparin Sodium (Lovenox) 40 mg SC DAILY [facility] Last Admin: 07/29/16 10:06 Dose: 40 mg Gabapentin (Neurontin) 800 mg PO TID [facility] Last Admin: 07/29/16 17:47 Dose: 800 mg Guaifenesin/Dextromethorphan (Robitussin Dm) 5 ml PO Q4H PRN PRN Reason: Cough Last Admin: 07/28/16 08:20 Dose: 5 ml Meropenem 500 mg/ Sodium (Chloride) 100 mls @ 200 mls/hr IVPB Q8H [facility] Last Admin: 07/29/16 23:45 Dose: 200 mls/hr Insulin Aspart (Novolog) 9 unit SC TIDAC [facility] Last Admin: 07/29/16 17:00 Dose: 9 unit Insulin Glargine (Lantus) 30 unit SC HS [facility] Last Admin: 07/29/16 21:57 Dose: 30 units Ipratropium [place] (Atrovent) 0.5 mg IH Q4 [facility] Last Admin: 07/30/16 01:04 Dose: 0.5 mg Lamotrigine (Lamictal) 100 mg PO HS [facility] Last Admin: 07/29/16 21:57 Dose: 100 mg Lorazepam (Ativan) 1 mg PO TID PRN PRN Reason: Anxiety Last Admin: 07/28/16 00:50 Dose: 1 mg Methylprednisolone (Solu-Medrol) 40 mg IVP DAILY [facility] Last Admin: 07/29/16 10:06 Dose: 40 mg Oxycodone/Acetaminophen (Percocet 5/325 Mg Tab) 2 tab PO Q4H PRN PRN Reason: Pain, moderate (4-7) Stop: 07/31/16 17:42 Last Admin: 07/30/16 01:44 Dose: 2 tab Quetiapine Fumarate (Seroquel) 400 mg PO BID [facility] Last Admin: 07/29/16 17:47 Dose: 400 mg Sertraline HCl (Zoloft) 100 mg PO HS [facility] Last Admin: 07/29/16 21:57 Dose: 100 mg Trazodone HCl (Desyrel) 150 mg PO [facility] Last Admin: 07/29/16 21:56 Dose: 150 mg - Labs Labs: 07/28/16 08:19 07/28/16 08:19 PT 11.8 SECONDS (9.7-12.2) 07/25/16 00:16 INR 1.1 07/25/16 00:16 APTT 34 SECONDS (21-34) 07/25/16 00:16 - Constitutional Appears: No Acute Distress - Head Exam Head Exam: ATRAUMATIC, NORMAL INSPECTION, NORMOCEPHALIC - Eye Exam Eye Exam: EOMI, Normal appearance, PERRL Pupil Exam: NORMAL ACCOMODATION, PERRL - ENT Exam ENT Exam: Mucous Membranes Moist, Normal Exam - Respiratory Exam Respiratory Exam: Decreased Breath Sounds, Rhonchi - Cardiovascular Exam Cardiovascular Exam: REGULAR RHYTHM, +S1, +S2. absent: Murmur - GI/Abdominal Exam GI & Abdominal Exam: Soft, Normal Bowel Sounds. absent: Tenderness Assessment and Plan (1) COPD exacerbation Status: Acute (2) Morbid obesity Status: Acute (3) Pneumonia Status: Acute (4) Tracheostomy dependence Status: Acute (5) Chronic pain Status: Acute (6) Diabetes mellitus Status: Chronic (7) HTN (hypertension) Status: Chronic
[2016-07-30] MEDS: Meropenem 500 MG in Sodium Chloride 0.9% 100 ML IVPB SCH ×2 (08:44→15:39)
[2016-07-30] MEDS: (Novolog) Insulin Aspart, Recombinant 100 u/ml 10 ml vial SC SCH ×3 (08:45→16:37)
[2016-07-30] MEDS: MethylPREDNISolone 40 mg Vial IVP SCH (09:54)
[2016-07-30] MEDS: Enoxaparin 40 mg Syringe SC SCH (09:55)
[2016-07-30] MEDS: Budesonide 0.5 mg/2 ml Inhal Susp UD IH SCH (19:54)
[2016-07-30] MEDS: (Lantus) Insulin Glargine, Recombinant SC SCH (21:38)
--- NOTE | 2016-07-30 22:47 | CP.PCM.PN ---
Subjective - Date & Time of Evaluation Date of Evaluation: 07/30/16 Time of Evaluation: 09:00 - Subjective Subjective: Pt seen and examined, greenish sputum as per pt still there, pt continues antibiotics also seen by ID, remains afebrile Objective - Vital Signs/Intake and Output Vital Signs (last 24 hours): Temp Pulse Resp BP Pulse Ox 98.2 F 71 20 133/72 97 07/30/16 15:30 07/30/16 15:30 07/30/16 15:30 07/30/16 15:30 07/30/16 15:30 Intake and Output: 07/30/16 07/31/16 18:59 06:59 Intake Total 680 Balance 680 - Medications Medications: Current Medications Benzonatate (Tessalon Perles) 100 mg PO TID [facility] Last Admin: 07/30/16 17:51 Dose: 100 mg Budesonide (Pulmicort Respules) 0.5 mg IH RQ12 [facility] Last Admin: 07/30/16 19:54 Dose: 0.5 mg Enoxaparin Sodium (Lovenox) 40 mg SC DAILY [facility] Last Admin: 07/30/16 09:55 Dose: 40 mg Gabapentin (Neurontin) 800 mg PO TID [facility] Last Admin: 07/30/16 17:51 Dose: 800 mg Guaifenesin/Dextromethorphan (Robitussin Dm) 5 ml PO Q4H PRN PRN Reason: Cough Last Admin: 07/28/16 08:20 Dose: 5 ml Meropenem 500 mg/ Sodium (Chloride) 100 mls @ 200 mls/hr IVPB Q8H [facility] Last Admin: 07/30/16 15:39 Dose: 200 mls/hr Insulin Aspart (Novolog) 9 unit SC TIDAC [facility] Last Admin: 07/30/16 16:37 Dose: 9 unit Insulin Glargine (Lantus) 30 unit SC HS [facility] Last Admin: 07/30/16 21:38 Dose: 30 units Ipratropium [place] (Atrovent) 0.5 mg IH Q4 [facility] Last Admin: 07/30/16 19:54 Dose: 0.5 mg Lamotrigine (Lamictal) 100 mg PO HS [facility] Last Admin: 07/30/16 21:38 Dose: 100 mg Lorazepam (Ativan) 1 mg PO TID PRN PRN Reason: Anxiety Last Admin: 07/28/16 00:50 Dose: 1 mg Methylprednisolone (Solu-Medrol) 40 mg IVP DAILY [facility] Last Admin: 07/30/16 09:54 Dose: 40 mg Oxycodone/Acetaminophen (Percocet 5/325 Mg Tab) 2 tab PO Q4H PRN PRN Reason: Pain, moderate (4-7) Stop: 07/31/16 17:42 Last Admin: 07/30/16 16:32 Dose: 2 tab Quetiapine Fumarate (Seroquel) 400 mg PO BID [facility] Last Admin: 07/30/16 17:51 Dose: 400 mg Sertraline HCl (Zoloft) 100 mg PO HS [facility] Last Admin: 07/30/16 21:38 Dose: 100 mg Trazodone HCl (Desyrel) 150 mg PO HS [facility] Last Admin: 07/30/16 21:38 Dose: 150 mg - Labs Labs: 07/28/16 08:19 07/28/16 08:19 PT 11.8 SECONDS (9.7-12.2) 07/25/16 00:16 INR 1.1 07/25/16 00:16 APTT 34 SECONDS (21-34) 07/25/16 00:16 - Constitutional Appears: Well - Head Exam Head Exam: ATRAUMATIC, NORMAL INSPECTION, NORMOCEPHALIC - Eye Exam Eye Exam: EOMI, Normal appearance, PERRL Pupil Exam: NORMAL ACCOMODATION, PERRL - Respiratory Exam Respiratory Exam: Decreased Breath Sounds, Rhonchi - Cardiovascular Exam Cardiovascular Exam: REGULAR RHYTHM, +S1, +S2. absent: Murmur Assessment and Plan (1) COPD exacerbation Status: Acute (2) Morbid obesity Status: Acute (3) Pneumonia Status: Acute (4) Tracheostomy dependence Status: Acute (5) Chronic pain Status: Acute (6) Diabetes mellitus Status: Chronic (7) HTN (hypertension) Status: Chronic
[2016-07-31] MEDS: Meropenem 500 MG in Sodium Chloride 0.9% 100 ML IVPB SCH ×3 (00:05→15:58)
[2016-07-31] MEDS: Oxycodone/Acetaminophen 5/325 mg Tab PO PRN ×3 (00:10→10:59)
[2016-07-31] MEDS: Ipratropium 0.02% Inhal Soln (0.5 mg/2.5 ml) UD IH SCH ×5 (04:58→19:22)
[2016-07-31 07:25] LABS: BASO # 0.1 K/uL (0.0-0.2); BASO % 0.5 % (0.0-2.0); EOS # 0.1 K/uL (0.0-0.7); EOS % 0.4 % (0.0-4.0); HEMATOCRIT 37.8 % (34.0-47.0); LYMPH # 3.6 K/uL (1.0-4.3); MEAN CELL VOLUME 79.7 fL (81.0-99.0); MEAN CORPUSCULAR HGB CONC 32.6 g/dL (33.0-37.0); MEAN PLATELET VOLUME 8.1 fL (7.2-11.7); MONO # 1.1 K/uL (0.0-0.8); MONO % 7.2 % (0.0-10.0); RED CELL DISTRIBUTION WIDTH 16.1 % (11.5-14.5)
[2016-07-31 07:30] LABS: WHITE BLOOD COUNT 14.8 K/uL (4.8-10.8)
[2016-07-31 07:43] LABS: CHLORIDE 97 mmol/L (98-107)
[2016-07-31 07:44] LABS: POTASSIUM 4.1 mmol/L (3.6-5.2); SODIUM 142 mmol/L (132-148)
[2016-07-31 07:46] LABS: AST/SGOT 20 U/L (14-36); BILIRUBIN,DIRECT 0.5 mg/dL (0.0-0.4); BILIRUBIN,TOTAL 0.5 mg/dL (0.2-1.3); BLOOD UREA NITROGEN 16 mg/dL (7-17); CARBON DIOXIDE 36 mmol/L (22-30); GFR AFRICAN-AMERICAN > 60; TOTAL PROTEIN 7.4 g/dL (6.3-8.3)
[2016-07-31 07:47] LABS: ALKALINE PHOSPHATASE 86 U/L (38-126); ALT/SGPT 18 U/L (9-52); CALCIUM 8.8 mg/dl (8.6-10.4); GLUCOSE,RANDOM 105 mg/dL (65-105)
[2016-07-31] MEDS: Budesonide 0.5 mg/2 ml Inhal Susp UD IH SCH ×2 (07:56→19:22)
[2016-07-31] MEDS: (Novolog) Insulin Aspart, Recombinant 100 u/ml 10 ml vial SC SCH ×3 (10:07→17:14)
[2016-07-31] MEDS: Enoxaparin 40 mg Syringe SC SCH (10:50)
[2016-07-31] MEDS: MethylPREDNISolone 40 mg Vial IVP SCH (10:50)
--- NOTE | 2016-07-31 12:08 | CP.PCM.PN ---
Subjective - Date & Time of Evaluation Date of Evaluation: 07/31/16 Time of Evaluation: 12:08 - Subjective Subjective: AFEBRILE +ve HOARSENESS TRACHAEL [employer]IONS GREENISH AND THICK PER PT WBC 14.8 REPEAT SPUTUM +VE MORGANELLA MORGANI S-GENTAMICIN I-IMIPENEM. WILL START IV GENTAMICIN 160MG X1 DOSE TODAY 07/31/16 F/U BY GENTAMICIN 100MG IVPB DAILY X 4DAYS FOR SYNERGY.TILL 08/04/16 LAST DOSE. Objective - Vital Signs/Intake and Output Vital Signs (last 24 hours): Temp Pulse Resp BP Pulse Ox 97.7 F 82 20 115/74 94 L 07/31/16 09:47 07/31/16 11:54 07/31/16 09:47 07/31/16 10:57 07/31/16 11:54 - Medications Medications: Current Medications Benzonatate (Tessalon Perles) 100 mg PO TID [facility] Last Admin: 07/31/16 10:50 Dose: 100 mg Budesonide (Pulmicort Respules) 0.5 mg IH RQ12 [facility] Last Admin: 07/31/16 07:56 Dose: 0.5 mg Enoxaparin Sodium (Lovenox) 40 mg SC DAILY [facility] Last Admin: 07/31/16 10:50 Dose: 40 mg Gabapentin (Neurontin) 800 mg PO TID [facility] Last Admin: 07/31/16 10:50 Dose: 800 mg Guaifenesin/Dextromethorphan (Robitussin Dm) 5 ml PO Q4H PRN PRN Reason: Cough Last Admin: 07/28/16 08:20 Dose: 5 ml Meropenem 500 mg/ Sodium (Chloride) 100 mls @ 200 mls/hr IVPB Q8H [facility] Last Admin: 07/31/16 08:44 Dose: 200 mls/hr Insulin Aspart (Novolog) 9 unit SC TIDAC [facility] Last Admin: 07/31/16 10:07 Dose: 9 unit Insulin Glargine (Lantus) 30 unit SC [facility] Last Admin: 07/30/16 21:38 Dose: 30 units Ipratropium [place] (Atrovent) 0.5 mg IH Q4 [facility] Last Admin: 07/31/16 11:00 Dose: 0.5 mg Lamotrigine (Lamictal) 100 mg PO [facility] Last Admin: 07/30/16 21:38 Dose: 100 mg Lorazepam (Ativan) 1 mg PO TID PRN PRN Reason: Anxiety Last Admin: 07/28/16 00:50 Dose: 1 mg Methylprednisolone (Solu-Medrol) 40 mg IVP DAILY [facility] Last Admin: 07/31/16 10:50 Dose: 40 mg Oxycodone/Acetaminophen (Percocet 5/325 Mg Tab) 2 tab PO Q4H PRN PRN Reason: Pain, moderate (4-7) Stop: 07/31/16 17:42 Last Admin: 07/31/16 10:59 Dose: 2 tab Quetiapine Fumarate (Seroquel) 400 mg PO BID [facility] Last Admin: 07/31/16 10:50 Dose: 400 mg Sertraline HCl (Zoloft) 100 mg PO HS [facility] Last Admin: 07/30/16 21:38 Dose: 100 mg Trazodone HCl (Desyrel) 150 mg PO HS [facility] Last Admin: 07/30/16 21:38 Dose: 150 mg - Labs Labs: 07/31/16 07:18 07/31/16 07:18 PT 11.8 SECONDS (9.7-12.2) 07/25/16 00:16 INR 1.1 07/25/16 00:16 APTT 34 SECONDS (21-34) 07/25/16 00:16 - Constitutional Appears: No Acute Distress - Head Exam Head Exam: NORMAL INSPECTION - Eye Exam Eye Exam: EOMI, PERRL - ENT Exam ENT Exam: Mucous Membranes Dry, Normal Oropharynx - Neck Exam Neck Exam: Normal Inspection - Respiratory Exam Respiratory Exam: Prolonged Expiratory Phase, Rhonchi - Cardiovascular Exam Cardiovascular Exam: REGULAR RHYTHM, +S1, +S2 - GI/Abdominal Exam GI & Abdominal Exam: Soft, Normal Bowel Sounds (obese.) - Extremities Exam Extremities Exam: absent: Calf Tenderness, Pedal Edema - Neurological Exam Neurological Exam: Awake - Psychiatric Exam Psychiatric exam: Normal Mood - Skin Skin Exam: Normal Color, Warm Assessment and Plan (1) Sepsis Status: Acute (2) Pneumonia Assessment & Plan: ON IV MERREM 1GM STAT DOSE FOLLOWED BY 500 MG EVERY 8 HOURLY 07/27/16. continue iv mERREM 500 EVERY 8 HOURLY.07/27/16 REPEAT SPUTUM +VE MORGANELLA MORGANI S-GENTAMICIN I-IMIPENEM. WILL START IV GENTAMICIN 160MG X1 DOSE TODAY 07/31/16 F/U BY GENTAMICIN 100MG IVPB DAILY X 4DAYS FOR SYNERGY.TILL 08/04/16 LAST DOSE. STRICT CONTACT AND RESPIRATORY PRECAUTIONS ESPECIALLY ON SUCTIONING. FOLLOW-UP RENAL FUNCTIONS CLOSELY. PULMONARY TOILET Status: Acute (3) Mucus plugging of bronchi Status: Acute (4) COPD exacerbation Status: Acute (5) Diabetes mellitus with neuropathy Status: Acute (6) Dyspnea Status: Acute (7) Morbid obesity Status: Acute
--- NOTE | 2016-07-31 12:15 | PN ---
DATE: 07/31/2016 SUBJECTIVE: The patient is seen. The patient states she is feeling much better. The patient also m entioned she does not want to go back to [facility] where she was there for subacute rehab. She has no fever. She is feeling much better. She wants to go home to her daughter, Toshia. She reports t hat her daughter her recent knee surgery and she wants to be with her. VITAL SIGNS: Temperature is 97.7, pulse rate is 80, blood pressure is 115/74, respiration is 20, oxy gen sat is 95 on trach collar. The patient is seen in her room. REVIEW OF SYSTEMS: GENERAL: The patient is alert, verbal, conversing in Welsh and Vietnamese. SKIN: No pruritus. HEENT: No headache or dizziness. NECK: The patient is status post tracheostomy. RESPIRATORY: No dyspnea. CARDIOVASCULAR: No chest pain. GASTROINTESTINAL: No nausea, no vomiting. EXTREMITIES: The patient moves extremities. MUSCULOSKELETAL: Feels weak. NEUROLOGIC: Alert, oriented x 3. GENITOURINARY: No urinary problems. MENTAL STATUS EXAMINATION: Obese female who looks stated age, oriented x 3. Mood is much calmer. A ffect is reactive. Speech spontaneous. Thought process: Coherent. Thought content: The patient s tates she still has fears about sleeping, but her sleeping is much better. Has been compliant with p sych meds. No paranoia, no hallucinations, no suicidal or homicidal ideation. Attention and memory seem to be fair. Insight and judgment fair. Impulse control is fair. IMPRESSION: Schizoaffective disorder, bipolar type, stable; as well as history of pneumonia, history of diabetes, status post respiratory failure and tracheostomy. PLAN AND RECOMMENDATIONS: The patient seen, meds reviewed. Continue present management. Continue p resent psych meds. Wellington Dejesus MD cc: [phone] TT: 07/31/2016 12:14:37 Confirmation # [id number] Dictation # [id number] mn
[2016-07-31] MEDS ORDERED: Gentamicin 160 MG in Sodium Chloride 0.9% 100 ML IVPB ONE (15:00)
[2016-07-31] MEDS: HYDROmorphone 0.5 mg/0.5 ml ISec IVP PRN (17:37)
[2016-07-31] MEDS: (Lantus) Insulin Glargine, Recombinant SC SCH (21:37)
[2016-08-01] MEDS: Meropenem 500 MG in Sodium Chloride 0.9% 100 ML IVPB SCH ×3 (00:02→16:29)
[2016-08-01] MEDS: HYDROmorphone 0.5 mg/0.5 ml ISec IVP PRN ×4 (00:15→22:13)
[2016-08-01] MEDS: Ipratropium 0.02% Inhal Soln (0.5 mg/2.5 ml) UD IH SCH ×6 (00:21→19:40)
[2016-08-01] MEDS: Budesonide 0.5 mg/2 ml Inhal Susp UD IH SCH ×3 (08:04→19:40)
[2016-08-01] MEDS: (Novolog) Insulin Aspart, Recombinant 100 u/ml 10 ml vial SC SCH ×3 (09:23→17:52)
--- NOTE | 2016-08-01 10:32 | PN ---
DATE: 08/01/2016 SUBJECTIVE: The patient is doing clinically better. The patient states she does not want to go to [facility] because she was there recently and stayed for a month. The patient wants to complete antib iotics and wants to go home with her daughter, Toshia. VITAL SIGNS: Temperature is 97.6, pulse rate 75, blood pressure is 137/71, respiration is 20, oxygen saturation is 93 on trach collar. REVIEW OF SYSTEMS: GENERAL: The patient is more alert, verbal, seen in her room, clinically improved. SKIN: No pruritus. HEENT: No headache, no dizziness. NECK: The patient is status post trach. RESPIRATORY: Not in acute respiratory distress. CARDIOVASCULAR: No chest pain. GASTROINTESTINAL: She is eating better. EXTREMITIES: The patient moves extremities. MUSCULOSKELETAL: Weakness, improving. NEUROLOGIC: Alert and oriented x 3. GENITOURINARY: No dysuria, no urinary problems. MENTAL STATUS EXAMINATION: An obese female who looks stated age, oriented x 3. Mood is much calmer. Affect is reactive. Speech spontaneous. Thought process coherent. Thought content: The patient refusing to go back to [facility] for subacute rehab; she wants to go home. No paranoia, no suicidal or homicidal ideation. The patient still afraid to go to sleep despite meds. Attention and memory seem to be fair. Insight and judgment fair. Impulse control is fair. IMPRESSION: Schizoaffective disorder, bipolar type; history of pneumonia, history of respiratory pablito lure and tracheostomy, diabetes, obesity. PLAN AND RECOMMENDATIONS: The patient seen, meds reviewed. Continue antibiotics as ordered. Contin ue present psych meds as ordered. The patient is doing clinically better psych-de la cruz. Wellington Dejesus MD cc: [phone] TT: 08/01/2016 10:32:11 Confirmation # [id number] Dictation # [id number] mn
[2016-08-01] MEDS: MethylPREDNISolone 40 mg Vial IVP SCH (11:20)
[2016-08-01] MEDS: Enoxaparin 40 mg Syringe SC SCH (11:21)
--- NOTE | 2016-08-01 13:02 | CP.PCM.PN ---
Subjective - Date & Time of Evaluation Date of Evaluation: 08/01/16 Time of Evaluation: 09:00 - Subjective Subjective: PT SEEN AND EXAMINED, AFEBRILE STILL COUGHING AND WHEEZING, TRACHAEL SECRETIONS GREENISH AND THICK PER PT REPEAT SPUTUM +VE MORGANELLA MORGANI S-GENTAMICIN I-IMIPENEM. WILL START IV GENTAMICIN 160MG X1 DOSE TODAY 07/31/16 F/U BY GENTAMICIN 100MG IVPB DAILY X 4DAYS FOR SYNERGY.TILL 08/04/16 LAST DOSE. Objective - Vital Signs/Intake and Output Vital Signs (last 24 hours): Temp Pulse Resp BP Pulse Ox 97.6 F 75 20 137/71 93 L 08/01/16 07:05 08/01/16 07:05 08/01/16 07:05 08/01/16 07:05 08/01/16 07:05 Intake and Output: 08/01/16 08/01/16 06:59 18:59 Intake Total 120 Balance 120 - Medications Medications: Current Medications Benzonatate (Tessalon Perles) 100 mg PO TID [facility] Last Admin: 08/01/16 11:21 Dose: 100 mg Budesonide (Pulmicort Respules) 0.5 mg IH RQ12 [facility] Last Admin: 08/01/16 08:04 Dose: 0.5 mg Enoxaparin Sodium (Lovenox) 40 mg SC DAILY [facility] Last Admin: 08/01/16 11:21 Dose: 40 mg Gabapentin (Neurontin) 800 mg PO TID [facility] Last Admin: 08/01/16 11:34 Dose: 800 mg Guaifenesin/Dextromethorphan (Robitussin Dm) 5 ml PO Q4H PRN PRN Reason: Cough Last Admin: 07/28/16 08:20 Dose: 5 ml Hydromorphone HCl (Dilaudid) 0.5 mg IVP Q6H PRN PRN Reason: Pain, severe (8-10) Last Admin: 08/01/16 08:24 Dose: 0.5 mg Meropenem 500 mg/ Sodium (Chloride) 100 mls @ 200 mls/hr IVPB Q8H [facility] Last Admin: 08/01/16 08:26 Dose: 200 mls/hr Gentamicin Sulfate 100 mg/ (Sodium Chloride) 102.5 mls @ 100 mls/hr IVPB Q24H [facility] Stop: 08/04/16 16:17 Insulin Aspart (Novolog) 9 unit SC TIDAC [facility] Last Admin: 08/01/16 09:23 Dose: 9 unit Insulin Glargine (Lantus) 30 unit SC [facility] Last Admin: 07/31/16 21:37 Dose: 30 units Ipratropium [place] (Atrovent) 0.5 mg IH Q4 [facility] Last Admin: 08/01/16 11:20 Dose: Not Given Lamotrigine (Lamictal) 100 mg PO [facility] Last Admin: 07/31/16 21:37 Dose: 100 mg Lorazepam (Ativan) 1 mg PO TID PRN PRN Reason: Anxiety Last Admin: 07/28/16 00:50 Dose: 1 mg Methylprednisolone (Solu-Medrol) 40 mg IVP DAILY [facility] Last Admin: 08/01/16 11:20 Dose: 40 mg Quetiapine Fumarate (Seroquel) 400 mg PO BID [facility] Last Admin: 08/01/16 11:20 Dose: 400 mg Sertraline HCl (Zoloft) 100 mg PO [facility] Last Admin: 07/31/16 21:37 Dose: 100 mg Trazodone HCl (Desyrel) 150 mg PO [facility] Last Admin: 07/31/16 21:37 Dose: 150 mg - Labs Labs: 07/31/16 07:18 07/31/16 07:18 PT 11.8 SECONDS (9.7-12.2) 07/25/16 00:16 INR 1.1 07/25/16 00:16 APTT 34 SECONDS (21-34) 07/25/16 00:16 - Constitutional Appears: No Acute Distress - Head Exam Head Exam: ATRAUMATIC, NORMAL INSPECTION, NORMOCEPHALIC - Eye Exam Eye Exam: EOMI, Normal appearance, PERRL Pupil Exam: NORMAL ACCOMODATION, PERRL - Respiratory Exam Respiratory Exam: Decreased Breath Sounds, Rales, Rhonchi, Wheezes - Cardiovascular Exam Cardiovascular Exam: REGULAR RHYTHM, +S1, +S2. absent: Murmur - GI/Abdominal Exam GI & Abdominal Exam: Soft, Normal Bowel Sounds. absent: Tenderness - Neurological Exam Neurological Exam: Alert, Awake, CN II-XII Intact, Normal Gait, Oriented x3 Assessment and Plan (1) COPD exacerbation Status: Acute (2) Morbid obesity Status: Acute (3) Pneumonia Status: Acute (4) Tracheostomy dependence Status: Acute (5) Chronic pain Status: Acute (6) Diabetes mellitus Status: Chronic (7) HTN (hypertension) Status: Chronic
--- NOTE | 2016-08-01 13:02 | CP.PCM.PN ---
Subjective - Date & Time of Evaluation Date of Evaluation: 07/31/16 Time of Evaluation: 08:50 - Subjective Subjective: AFEBRILE +ve HOARSENESS TRACHA[employer] GREENISH AND THICK PER PT WBC 14.8 REPEAT SPUTUM +VE MORGANELLA MORGANI S-GENTAMICIN I-IMIPENEM. WILL START IV GENTAMICIN 160MG X1 DOSE TODAY 07/31/16 F/U BY GENTAMICIN 100MG IVPB DAILY X 4DAYS FOR SYNERGY.TILL 08/04/16 LAST DOSE. Objective - Vital Signs/Intake and Output Vital Signs (last 24 hours): Temp Pulse Resp BP Pulse Ox 97.6 F 75 20 137/71 93 L 08/01/16 07:05 08/01/16 07:05 08/01/16 07:05 08/01/16 07:05 08/01/16 07:05 Intake and Output: 08/01/16 08/01/16 06:59 18:59 Intake Total 120 Balance 120 - Medications Medications: Current Medications Benzonatate (Tessalon Perles) 100 mg PO TID [facility] Last Admin: 08/01/16 11:21 Dose: 100 mg Budesonide (Pulmicort Respules) 0.5 mg IH RQ12 [facility] Last Admin: 08/01/16 08:04 Dose: 0.5 mg Enoxaparin Sodium (Lovenox) 40 mg SC DAILY [facility] Last Admin: 08/01/16 11:21 Dose: 40 mg Gabapentin (Neurontin) 800 mg PO TID [facility] Last Admin: 08/01/16 11:34 Dose: 800 mg Guaifenesin/Dextromethorphan (Robitussin Dm) 5 ml PO Q4H PRN PRN Reason: Cough Last Admin: 07/28/16 08:20 Dose: 5 ml Hydromorphone HCl (Dilaudid) 0.5 mg IVP Q6H PRN PRN Reason: Pain, severe (8-10) Last Admin: 08/01/16 08:24 Dose: 0.5 mg Meropenem 500 mg/ Sodium (Chloride) 100 mls @ 200 mls/hr IVPB Q8H [facility] Last Admin: 08/01/16 08:26 Dose: 200 mls/hr Gentamicin Sulfate 100 mg/ (Sodium Chloride) 102.5 mls @ 100 mls/hr IVPB Q24H [facility] Stop: 08/04/16 16:17 Insulin Aspart (Novolog) 9 unit SC TIDAC [facility] Last Admin: 08/01/16 09:23 Dose: 9 unit Insulin Glargine (Lantus) 30 unit SC [facility] Last Admin: 07/31/16 21:37 Dose: 30 units Ipratropium [place] (Atrovent) 0.5 mg IH Q4 [facility] Last Admin: 08/01/16 11:20 Dose: Not Given Lamotrigine (Lamictal) 100 mg PO [facility] Last Admin: 07/31/16 21:37 Dose: 100 mg Lorazepam (Ativan) 1 mg PO TID PRN PRN Reason: Anxiety Last Admin: 07/28/16 00:50 Dose: 1 mg Methylprednisolone (Solu-Medrol) 40 mg IVP DAILY [facility] Last Admin: 08/01/16 11:20 Dose: 40 mg Quetiapine Fumarate (Seroquel) 400 mg PO BID [facility] Last Admin: 08/01/16 11:20 Dose: 400 mg Sertraline HCl (Zoloft) 100 mg PO [facility] Last Admin: 07/31/16 21:37 Dose: 100 mg Trazodone HCl (Desyrel) 150 mg PO [facility] Last Admin: 07/31/16 21:37 Dose: 150 mg - Labs Labs: 07/31/16 07:18 07/31/16 07:18 PT 11.8 SECONDS (9.7-12.2) 07/25/16 00:16 INR 1.1 07/25/16 00:16 APTT 34 SECONDS (21-34) 07/25/16 00:16 - Constitutional Appears: No Acute Distress - Head Exam Head Exam: ATRAUMATIC, NORMAL INSPECTION, NORMOCEPHALIC - Eye Exam Eye Exam: EOMI, Normal appearance, PERRL Pupil Exam: NORMAL ACCOMODATION, PERRL - Neck Exam Neck Exam: Full ROM - Respiratory Exam Respiratory Exam: Decreased Breath Sounds, Rhonchi, Wheezes - Cardiovascular Exam Cardiovascular Exam: REGULAR RHYTHM, +S1, +S2. absent: Murmur - GI/Abdominal Exam GI & Abdominal Exam: Soft, Normal Bowel Sounds. absent: Tenderness Assessment and Plan (1) COPD exacerbation Status: Acute (2) Morbid obesity Status: Acute (3) Pneumonia Status: Acute (4) Tracheostomy dependence Status: Acute (5) Chronic pain Status: Acute (6) Diabetes mellitus Status: Chronic (7) HTN (hypertension) Status: Chronic
[2016-08-01] MEDS: guaiFENesin DM 100 mg-10 mg/5 ml UD PO PRN (14:49)
[2016-08-01] MEDS: (Lantus) Insulin Glargine, Recombinant SC SCH (22:15)
--- NOTE | 2016-08-01 23:09 | CP.PCM.PN ---
Subjective - Date & Time of Evaluation Date of Evaluation: 08/01/16 Time of Evaluation: 23:09 - Subjective Subjective: AFEBRILE TRACHAEL SECRETIONS GREENISH AND THICK PER PT LESS HOARSENESS Objective - Vital Signs/Intake and Output Vital Signs (last 24 hours): Temp Pulse Resp BP Pulse Ox 98.2 F 75 22 134/71 94 L 08/01/16 15:05 08/01/16 15:05 08/01/16 15:05 08/01/16 15:05 08/01/16 15:05 Intake and Output: 08/01/16 08/02/16 18:59 06:59 Intake Total 800 Balance 800 - Medications Medications: Current Medications Benzonatate (Tessalon Perles) 100 mg PO TID [facility] Last Admin: 08/01/16 18:32 Dose: 100 mg Budesonide (Pulmicort Respules) 0.5 mg IH RQ12 [facility] Last Admin: 08/01/16 19:40 Dose: 0.5 mg Enoxaparin Sodium (Lovenox) 40 mg SC DAILY [facility] Last Admin: 08/01/16 11:21 Dose: 40 mg Gabapentin (Neurontin) 800 mg PO TID [facility] Last Admin: 08/01/16 17:52 Dose: 800 mg Guaifenesin/Dextromethorphan (Robitussin Dm) 5 ml PO Q4H PRN PRN Reason: Cough Last Admin: 08/01/16 14:49 Dose: 5 ml Hydromorphone HCl (Dilaudid) 0.5 mg IVP Q6H PRN PRN Reason: Pain, severe (8-10) Last Admin: 08/01/16 22:13 Dose: 0.5 mg Meropenem 500 mg/ Sodium (Chloride) 100 mls @ 200 mls/hr IVPB Q8H [facility] Last Admin: 08/01/16 16:29 Dose: 200 mls/hr Gentamicin Sulfate 100 mg/ (Sodium Chloride) 102.5 mls @ 100 mls/hr IVPB Q24H [facility] Stop: 08/04/16 16:17 Last Admin: 08/01/16 14:49 Dose: 100 mls/hr Insulin Aspart (Novolog) 9 unit SC TIDAC [facility] Last Admin: 08/01/16 17:52 Dose: 9 unit Insulin Glargine (Lantus) 30 unit SC HS [facility] Last Admin: 08/01/16 22:15 Dose: 30 units Ipratropium [place] (Atrovent) 0.5 mg IH Q4 [facility] Last Admin: 08/01/16 19:40 Dose: 0.5 mg Lamotrigine (Lamictal) 100 mg PO [facility] Last Admin: 08/01/16 22:16 Dose: 100 mg Lorazepam (Ativan) 1 mg PO TID PRN PRN Reason: Anxiety Last Admin: 08/01/16 22:24 Dose: 1 mg Methylprednisolone (Solu-Medrol) 40 mg IVP DAILY [facility] Last Admin: 08/01/16 11:20 Dose: 40 mg Quetiapine Fumarate (Seroquel) 400 mg PO BID [facility] Last Admin: 08/01/16 17:52 Dose: 400 mg Sertraline HCl (Zoloft) 100 mg PO [facility] Last Admin: 08/01/16 22:13 Dose: 100 mg Trazodone HCl (Desyrel) 150 mg PO [facility] Last Admin: 08/01/16 22:13 Dose: 150 mg - Labs Labs: 07/31/16 07:18 07/31/16 07:18 PT 11.8 SECONDS (9.7-12.2) 07/25/16 00:16 INR 1.1 07/25/16 00:16 APTT 34 SECONDS (21-34) 07/25/16 00:16 - Constitutional Appears: No Acute Distress - Head Exam Head Exam: NORMAL INSPECTION - Eye Exam Eye Exam: EOMI, PERRL - ENT Exam ENT Exam: Mucous Membranes Moist (TRACH IN PLACE) - Neck Exam Neck Exam: Normal Inspection - Respiratory Exam Respiratory Exam: Rhonchi, NORMAL BREATHING PATTERN - Cardiovascular Exam Cardiovascular Exam: Tachycardia, REGULAR RHYTHM, +S1, +S2 - GI/Abdominal Exam GI & Abdominal Exam: Soft (OBESE), Normal Bowel Sounds - Extremities Exam Extremities Exam: Pedal Edema. absent: Calf Tenderness - Neurological Exam Neurological Exam: Alert, Awake, CN II-XII Intact, Oriented x3 - Psychiatric Exam Psychiatric exam: Normal Mood - Skin Skin Exam: Normal Color, Warm Assessment and Plan (1) Sepsis Status: Acute (2) Pneumonia Assessment & Plan: ON IV MERREM 1GM STAT DOSE FOLLOWED BY 500 MG EVERY 8 HOURLY 07/27/16. continue iv mERREM 500 EVERY 8 HOURLY.07/27/16 X 5DAYS MORE REPEAT SPUTUM +VE MORGANELLA MORGANI S-GENTAMICIN I-IMIPENEM. WILL START IV GENTAMICIN 160MG X1 DOSE TODAY 07/31/16 F/U BY GENTAMICIN 100MG IVPB DAILY X 4DAYS FOR SYNERGY.TILL 08/04/16 LAST DOSE. STRICT CONTACT AND RESPIRATORY PRECAUTIONS ESPECIALLY ON SUCTIONING. FOLLOW-UP RENAL FUNCTIONS CLOSELY. PULMONARY TOILET CASE DISCUSSED WITH STORE SALES LEADER MS DÍAZ. Status: Acute (3) Mucus plugging of bronchi Assessment & Plan: PULMONARY TOILET PER DR. SINGLETON Status: Acute (4) COPD exacerbation Status: Acute (5) Diabetes mellitus with neuropathy Status: Acute (6) Dyspnea Status: Acute (7) Morbid obesity Status: Acute
[2016-08-02] MEDS: Meropenem 500 MG in Sodium Chloride 0.9% 100 ML IVPB SCH ×3 (00:22→16:24)
[2016-08-02] MEDS: Ipratropium 0.02% Inhal Soln (0.5 mg/2.5 ml) UD IH SCH ×6 (04:00→20:32)
[2016-08-02] MEDS: HYDROmorphone 0.5 mg/0.5 ml ISec IVP PRN ×3 (04:28→17:50)
[2016-08-02] MEDS: (Novolog) Insulin Aspart, Recombinant 100 u/ml 10 ml vial SC SCH ×3 (07:46→16:23)
[2016-08-02] MEDS: Budesonide 0.5 mg/2 ml Inhal Susp UD IH SCH (07:57)
[2016-08-02] MEDS: Enoxaparin 40 mg Syringe SC SCH (09:53)
[2016-08-02] MEDS: MethylPREDNISolone 40 mg Vial IVP SCH (09:54)
--- NOTE | 2016-08-02 14:40 | PN ---
DATE: 08/02/2016 SUBJECTIVE: The patient is seen. The patient is feeling much better but still feeling weak. The pa radu has agreed to go back to [facility] for subacute rehab. The patient was made aware that she wi ll need a new antibiotic treatment for infection which she said that she will go because she is not r dejah to go back home. Has been compliant with meds. Clinically improving. VITAL SIGNS: Temperature is 97.9, pulse rate 88, blood pressure 156/80, respirations 20, oxygen sat is 96 on trach collar. REVIEW OF SYSTEMS: GENERAL: The patient is more alert, verbal, oriented x 3, seen in her room eating. SKIN: No pruritus. HEENT: No headache, no dizziness. NECK: Status post trach. RESPIRATORY: Not in acute respiratory distress, not coughing. CARDIOVASCULAR: No chest pain. GASTROINTESTINAL: Still has good appetite. No nausea or vomiting. EXTREMITIES: The patient moving extremities. GENITOURINARY: No urinary problems. NEUROLOGIC: Alert, oriented x 3. MENTAL STATUS EXAMINATION: Obese female who looks stated age, oriented x 3. The patient is improvin g clinically. Affect is reactive. Speech spontaneous. Thought process: Coherent. Thought content : The patient has agreed to go for subacute rehab to [facility]. No paranoia. No suicidal or homic idal ideation. Attention and memory seem to be fair. Insight and judgment fair. Impulse control is fair. IMPRESSION: Schizoaffective disorder, bipolar type; history of pneumonia, history of diabetes, statu s post respiratory failure, status post tracheostomy, diabetes. PLAN AND RECOMMENDATIONS: The patient seen, meds reviewed. The patient is doing well. Continue pre sent antibiotics. Continue present psych meds. The patient has agreed to go to [facility] for subac bubba rehab. Wellington Dejesus MD cc: [id number] TT: 08/02/2016 14:40:35 Confirmation # [id number] Dictation # [id number] mn
[2016-08-02 16:06] VITALS: O2SAT 94
--- NOTE | 2016-08-02 17:29 | CP.PCM.PN ---
Subjective - Date & Time of Evaluation Date of Evaluation: 08/02/16 Time of Evaluation: 12:00 - Subjective Subjective: Pt seen and examined today states feels better, still with secretions from trache thick but lesser than before less sanctioning needed vss- stable a febrile Objective - Vital Signs/Intake and Output Vital Signs (last 24 hours): Temp Pulse Resp BP Pulse Ox 98 F 75 20 137/66 94 L 08/02/16 15:00 08/02/16 15:00 08/02/16 15:00 08/02/16 15:00 08/02/16 15:00 Intake and Output: 08/02/16 08/02/16 06:59 18:59 Intake Total 600 Balance 600 - Medications Medications: Current Medications Benzonatate (Tessalon Perles) 100 mg PO TID [facility] Last Admin: 08/02/16 13:13 Dose: 100 mg Budesonide (Pulmicort Respules) 0.5 mg IH RQ12 [facility] Last Admin: 08/02/16 07:57 Dose: 0.5 mg Enoxaparin Sodium (Lovenox) 40 mg SC DAILY [facility] Last Admin: 08/02/16 09:53 Dose: 40 mg Gabapentin (Neurontin) 800 mg PO TID [facility] Last Admin: 08/02/16 13:13 Dose: 800 mg Guaifenesin/Dextromethorphan (Robitussin Dm) 5 ml PO Q4H PRN PRN Reason: Cough Last Admin: 08/01/16 14:49 Dose: 5 ml Hydromorphone HCl (Dilaudid) 0.5 mg IVP Q6H PRN PRN Reason: Pain, severe (8-10) Last Admin: 08/02/16 11:28 Dose: 0.5 mg Meropenem 500 mg/ Sodium (Chloride) 100 mls @ 200 mls/hr IVPB Q8H [facility] Last Admin: 08/02/16 16:24 Dose: 200 mls/hr Gentamicin Sulfate 100 mg/ (Sodium Chloride) 102.5 mls @ 100 mls/hr IVPB Q24H [facility] Stop: 08/04/16 16:17 Last Admin: 08/02/16 14:18 Dose: 100 mls/hr Insulin Aspart (Novolog) 9 unit SC TIDAC [facility] Last Admin: 08/02/16 16:23 Dose: 9 unit Insulin Glargine (Lantus) 30 unit SC [facility] Last Admin: 08/01/16 22:15 Dose: 30 units Ipratropium Tiff (Atrovent) 0.5 mg IH Q4 [facility] Last Admin: 08/02/16 16:29 Dose: 0.5 mg Lamotrigine (Lamictal) 100 mg PO [facility] Last Admin: 08/01/16 22:16 Dose: 100 mg Lorazepam (Ativan) 1 mg PO TID PRN PRN Reason: Anxiety Last Admin: 08/01/16 22:24 Dose: 1 mg Methylprednisolone (Solu-Medrol) 40 mg IVP DAILY [facility] Last Admin: 08/02/16 09:54 Dose: 40 mg Quetiapine Fumarate (Seroquel) 400 mg PO BID [facility] Last Admin: 08/02/16 09:54 Dose: 400 mg Sertraline HCl (Zoloft) 100 mg PO [facility] Last Admin: 08/01/16 22:13 Dose: 100 mg Trazodone HCl (Desyrel) 150 mg PO [facility] Last Admin: 08/01/16 22:13 Dose: 150 mg - Labs Labs: 07/31/16 07:18 07/31/16 07:18 PT 11.8 SECONDS (9.7-12.2) 07/25/16 00:16 INR 1.1 07/25/16 00:16 APTT 34 SECONDS (21-34) 07/25/16 00:16 Assessment and Plan - Assessment and Plan (Free Text) Assessment: A/P 60 yr old admitted for exc. copd, + sputum culture - started on merrum and genat and clinically improved
[2016-08-02 18:46] VITALS: BP 137/75; PULSE 91; RESP 18; TEMP 97.9
--- NOTE | 2016-08-03 01:23 | CARD ---
APPROVED REPORT EKG Measurement Heart [id number] <Conclusion> Sinus tachycardia Otherwise normal ECG
--- NOTE | 2016-08-03 04:36 | CP.PCM.DIS ---
Provider - Provider Date of Admission: 07/26/16 16:35 Attending physician: Ad Khan MD Diagnosis - Discharge Diagnosis (1) COPD exacerbation Status: Acute (2) Morbid obesity Status: Acute (3) Pneumonia Status: Acute (4) Tracheostomy dependence Status: Acute (5) Chronic pain Status: Acute (6) Diabetes mellitus Status: Chronic (7) HTN (hypertension) Status: Chronic Hospital Course - Lab Results Lab Results: Micro Results 07/26/16 Unknown Trachasp Gram Stain - Final 07/26/16 Unknown Trachasp Sputum Culture - Final Morg Morganii Ss Morganii Most Recent Lab Values WBC 14.8 K/uL (4.8-10.8) H D 07/31/16 07:18 RBC 4.74 Mil/uL (3.80-5.20) 07/31/16 07:18 Hgb 12.3 g/dL (11.0-16.0) 07/31/16 07:18 Hct 37.8 % (34.0-47.0) 07/31/16 07:18 MCV 79.7 fL (81.0-99.0) L 07/31/16 07:18 MCH 26.0 pg (27.0-31.0) L 07/31/16 07:18 MCHC 32.6 g/dL (33.0-37.0) L 07/31/16 07:18 RDW 16.1 % (11.5-14.5) H 07/31/16 07:18 Plt Count 208 K/uL (130-400) 07/31/16 07:18 MPV 8.1 fL (7.2-11.7) 07/31/16 07:18 Neut % (Auto) 67.9 % (50.0-75.0) 07/31/16 07:18 Lymph % (Auto) 24.0 % (20.0-40.0) 07/31/16 07:18 [place] % (Auto) 7.2 % (0.0-10.0) 07/31/16 07:18 Eos % (Auto) 0.4 % (0.0-4.0) 07/31/16 07:18 Baso % (Auto) 0.5 % (0.0-2.0) 07/31/16 07:18 Neut # 10.1 K/uL (1.8-7.0) H 07/31/16 07:18 Lymph # 3.6 K/uL (1.0-4.3) 07/31/16 07:18 [place] # 1.1 K/uL (0.0-0.8) H 07/31/16 07:18 Eos # 0.1 K/uL (0.0-0.7) 07/31/16 07:18 Baso # 0.1 K/uL (0.0-0.2) 07/31/16 07:18 ESR 58 mm/hr (0-20) H 07/28/16 08:19 PT 11.8 SECONDS (9.7-12.2) 07/25/16 00:16 INR 1.1 07/25/16 00:16 APTT 34 SECONDS (21-34) 07/25/16 00:16 pO2 50 mm/Hg (30-55) 07/25/16 00:06 VBG pH 7.35 (7.32-7.43) 07/25/16 00:06 VBG pCO2 51 mmHg (40-60) 07/25/16 00:06 VBG HCO3 25.9 mmol/L 07/25/16 00:06 VBG Total CO2 29.8 mmol/L (22-28) H 07/25/16 00:06 VBG O2 Sat (Calc) 86.9 % (40-65) H 07/25/16 00:06 VBG Base Excess 1.7 mmol/L (0.0-2.0) 07/25/16 00:06 VBG Potassium 3.9 mmol/L (3.6-5.2) 07/25/16 00:06 Sodium 143.0 mmol/l (132-148) 07/25/16 00:06 Chloride 109.0 mmol/L (98-107) H 07/25/16 00:06 Glucose 178 mg/dl (65-105) H 07/25/16 00:06 Lactate 1.7 mmol/L (0.7-2.1) 07/25/16 00:06 FiO2 30.0 % 07/25/16 00:06 Sodium 142 mmol/L (132-148) 07/31/16 07:18 Potassium 4.1 mmol/L (3.6-5.2) 07/31/16 07:18 Chloride 97 mmol/L (98-107) L 07/31/16 07:18 Carbon Dioxide 36 mmol/L (22-30) H 07/31/16 07:18 Anion Gap 13 (10-20) 07/31/16 07:18 BUN 16 mg/dL (7-17) 07/31/16 07:18 Creatinine 0.7 MG/DL (0.7-1.2) 07/31/16 07:18 Est GFR ( Amer) > 60 07/31/16 07:18 Est GFR (Non-Af Amer) > 60 07/31/16 07:18 POC Glucose (mg/dL) 240 mg/dL (65-110) H 08/02/16 16:22 Random Glucose 105 mg/dL (65-105) 07/31/16 07:18 Calcium 8.8 mg/dl (8.6-10.4) 07/31/16 07:18 Total Bilirubin 0.5 mg/dL (0.2-1.3) 07/31/16 07:18 Direct Bilirubin 0.5 mg/dL (0.0-0.4) H 07/31/16 07:18 AST 20 U/L (14-36) 07/31/16 07:18 ALT 18 U/L (9-52) 07/31/16 07:18 Alkaline Phosphatase 86 U/L (38-126) 07/31/16 07:18 Total Creatine Kinase 49 U/L (30-135) 07/26/16 21:51 CK-MB (Mass) 1.06 ng/mL (0.0-3.38) 07/26/16 21:51 Troponin I, Quant < 0.0120 ng/mL (0.00-0.120) 07/26/16 21:51 C-React Prot High Sens > 15.00 mg/L (1.00-3.00) H 07/28/16 08:19 NT-Pro-B Natriuret Pep 120 pg/mL (0-900) 07/25/16 00:16 Total Protein 7.4 g/dL (6.3-8.3) 07/31/16 07:18 Albumin 3.8 g/dL (3.5-5.0) 06/05/17 07:18 Globulin 3.7 gm/dL (2.2-3.9) 07/31/16 07:18 Albumin/Globulin Ratio 1.0 (1.0-2.1) 07/31/16 07:18 Venous Blood Potassium 3.9 mmol/L (3.6-5.2) 07/25/16 00:06 - Hospital Course Hospital Course: Pt seen and examined today states feels better, still with secretions from trache thick but lesser than before less sanctioning needed vss- stable a febrile pt is for discharge today Discharge Exam - Head Exam Head Exam: ATRAUMATIC, NORMAL INSPECTION, NORMOCEPHALIC - Eye Exam Eye Exam: EOMI, Normal appearance, PERRL Pupil Exam: NORMAL ACCOMODATION, PERRL - ENT Exam ENT Exam: Mucous Membranes Moist - Respiratory Exam Respiratory Exam: Decreased Breath Sounds, Rales, Rhonchi - Cardiovascular Exam Cardiovascular Exam: REGULAR RHYTHM, +S1, +S2 - GI/Abdominal Exam GI & Abdominal Exam: Normal Bowel Sounds, Unremarkable - Rectal Exam Rectal Exam: NORMAL INSPECTION Discharge Plan - Follow Up Plan Condition: FAIR Disposition: REHAB FACILITY/REHAB UNIT Instructions: Tracheostomy Care (DC), COPD (Chronic Obstructive Pulmonary Disease) (DC), Dyspnea (GEN) Additional Instructions: Please admit patient under Dr. Khan office - call Dr. Khan upon patient arrival to the facility. Continue medication as per Med. Rec. If symptoms persist or worsen, return to the ER. CBC CMP NEXT SUNDAY Referrals: Ad Khan MD [Staff Provider] -
== END 2016-08-02 21:58 | DRG 584 ==
LOC: C.ER 22:05 → C.5T 07-25 03:19 → OBSVTOIN 07-26 16:35
PROVIDERS: ADMIT Internal Medicine; ATTEND Internal Medicine
DX: A41.9 Sepsis, unspecified organism (principal); J18.9 Pneumonia, unspecified organism; T17.590A Other foreign object in bronchus causing asphyxiation, initial encounter; I11.0 Hypertensive heart disease with heart failure; I50.9 Heart failure, unspecified; J95.02 Infection of tracheostomy stoma; E11.40 Type 2 diabetes mellitus with diabetic neuropathy, unspecified; J44.1 Chronic obstructive pulmonary disease with (acute) exacerbation; F25.0 Schizoaffective disorder, bipolar type; R65.20 Severe sepsis without septic shock; F31.9 Bipolar disorder, unspecified; F41.9 Anxiety disorder, unspecified; G40.909 Epilepsy, unspecified, not intractable, without status epilepticus; G47.30 Sleep apnea, unspecified; E66.01 Morbid (severe) obesity due to excess calories; Z90.49 Acquired absence of other specified parts of digestive tract; Z86.73 Personal history of transient ischemic attack (TIA), and cerebral infarction without residual deficits; Z79.4 Long term (current) use of insulin; B96.89 Other specified bacterial agents as the cause of diseases classified elsewhere; Y83.8 Other surgical procedures as the cause of abnormal reaction of the patient, or of later complication, without mention of misadventure at the time of the procedure; R49.0 Dysphonia

== ENCOUNTER 2016-08-25 18:24 | Inpatient (IN) | payer OTHER ==
[2016-08-25 18:24] VITALS: BMI 45.6
--- NOTE | 2016-08-25 18:41 | C.PDOC ---
History Of Present Illness Patient BIBA for evaluation of ? syncopal episode. As per EMS, patient felt SOB and then "tired from breathing", then had syncopal episode at [employer]. Patient has H/O vent dependence resp failure with trach in place, asthma/copd, CHF, HTN, pneumonia, seizure disorder. Time Seen by Provider: 08/25/16 18:32 Chief Complaint (Nursing): Shortness Of Breath History Per: Patient, EMS History/Exam Limitations: clinical condition Onset/Duration Of Symptoms: Mins Current Symptoms Are (Timing): Still Present Current Respiratory Medications: See Home Med List Severity: Moderate Past Medical History Reviewed: Historical Data, Nursing Documentation, Vital Signs Vital Signs: Last Vital Signs Temp 98.4 F 08/30/16 17:00 Pulse 95 H 08/30/16 16:43 Resp 22 08/30/16 16:43 BP 117/68 08/30/16 16:43 Pulse Ox 98 08/30/16 17:19 - Medical History PMH: Anxiety, Asthma, Bipolar Disorder, Bronchitis, CHF, COPD, Depression, Emphysema, HTN, Pneumonia, Seizures, Sleep Apnea Surgical History: Appendectomy, Cholecystectomy - [facility] Procedures ASSISTANCE WITH RESPIRATORY VENTILATION, <24 HRS, CPAP (03/14/16) CENTRAL VENOUS CATHETER PLACEMENT WITH GUIDANCE (10/24/14) CONTINUOUS INVASIVE MECHANICAL VENTILATION <96 CONSEC HRS (03/07/14) ENTERAL INFUSION OF CONCENTRATED NUT. SUBSTANCES (09/17/12) INSERT ENDOTRACHEAL TUBE (09/17/12) INSERTION OF INFUSION DEV INTO SUP VENA CAVA, PERC APPROACH (12/03/15) INTRODUCE OF OTH THERAP SUBST INTO RESP TRACT, VIA OPENING (05/03/15) NEBULIZER THERAPY (09/17/12) RESPIRATORY VENTILATION, 24-96 CONSECUTIVE HOURS (03/14/16) Family History: States: No Known Family Hx - Social History Hx Tobacco Use: No Hx Alcohol Use: No Hx Substance Use: No - Immunization History Hx Tetanus Toxoid Vaccination: No Hx Influenza Vaccination: No Hx Pneumococcal Vaccination: No Review Of Systems Except As Marked, All Systems Reviewed And Found Negative. Cardiovascular: Negative for: Chest Pain, Palpitations Respiratory: Positive for: Shortness of Breath. Negative for: Cough Gastrointestinal: Negative for: Nausea, Vomiting, Abdominal Pain, Diarrhea Neurological: Positive for: Other (syncope) Physical Exam - Physical Exam Appears: Well, Non-toxic, In Acute Distress (in mild distress) Head: Normacephalic Oral Mucosa: Moist Neck: Other (trach in place, no secretions noted) Cardiovascular: Rhythm Regular (mildly tachycardic ) Respiratory: No Accessory Muscle Use, No Rales, No Rhonchi, Wheezing (mild expiratory wheezing B/L) Gastrointestinal/Abdominal: Normal Exam, Bowel Sounds, Soft, No Tenderness, Other (morbidly obese) Extremity: Normal ROM, No Pedal Edema, No Calf Tenderness Pulses: Left Dorsalis Pedis: Normal, Right Dorsalis Pedis: Normal Neurological/Psych: Oriented x3 ED Course And Treatment - Laboratory Results Result Diagrams: 08/28/16 06:28 07 06:28 ECG: Interpreted By Me, Viewed By Me (sinus tachycardia 126 bpm,left axis deviatiob, no acute ST/T wave changes) ECG Interpretation: Abnormal (tachycardic ) O2 Sat by Pulse Oximetry: 98 (RA) Pulse Ox Interpretation: Normal - Radiology CXR: Interpreted by Me, Viewed By Me (? developing left sided infiltrate) - CT Scan/US CT Head Without Intravenous Contrast Other Rad Studies (CT/US): Read By Radiologist, Radiology Report Reviewed CT/US Interpretation: IMPRESSION: No acute findings. Progress Note: Blood work, CXR, EKG, CT head ordered and reviewed. Patient given IV solumedrol and duoneb treatments. - Physician Consult Information Physician Contacted: Ad Khan Outcome Of Conversation: Discussed patient with Dr. Khan, agrees with admission to his service. Medical Decision Making Medical Decision Making: differential diagnoses considered: asthma/copd exacerbation, CHF, SD/ACS, pneumonia, PE, seizure, syncopal episode Disposition - Disposition Disposition: HOSPITALIZED Disposition Time: 21:06 Condition: STABLE - Clinical Impression Clinical Impression: COPD exacerbation, Ventilator dependent, Syncope, Pneumonia, Asthma Decision To Admit - Pt Status Changed To: Hospital Disposition Of: Inpatient - Admit Certification Admit to Inpatient:: After my assessment, the patient will require hospitalization for at least two midnights. This is because of the severity of symptoms shown, intensity of services needed, and/or the medical risk in this patient being treated as an outpatient. - InPatient: Physician Admission Certification: I certify that this patient requires 2 or more midnights of care for the following reason:: see notes - . Bed Request Type: Telemetry Admitting Physician: Ad Khan Patient Diagnosis: Asthma, COPD exacerbation, Dyspnea, Ventilator dependent, Pneumonia, Syncope
[2016-08-25] MEDS ORDERED: Albuterol-Ipratrop 3 mg / 0.5 (3 ml) UD ONE (18:42)
[2016-08-25] MEDS ORDERED: Ipratropium 0.02% Inhal Soln (0.5 mg/2.5 ml) UD IH ONE (18:42)
[2016-08-25] MEDS ORDERED: Albuterol-Ipratrop 3 mg / 0.5 (3 ml) UD INH STA ×2 (18:49→18:50)
[2016-08-25 18:54] LABS: BASO # 0.1 K/uL (0.0-0.2); BASO % 0.6 % (0.0-2.0); EOS # 0.1 K/uL (0.0-0.7); EOS % 1.3 % (0.0-4.0); HEMOGLOBIN 12.1 g/dL (11.0-16.0); LYMPH # 2.7 K/uL (1.0-4.3); LYMPH % 25.1 % (20.0-40.0); MEAN CELL VOLUME 79.9 fL (81.0-99.0); MEAN CORPUSCULAR HEMOGLOBIN 25.6 pg (27.0-31.0); MEAN PLATELET VOLUME 8.7 fL (7.2-11.7); NRBC % 0.1 % (0.0-2.0); RBC 4.73 Mil/uL (3.80-5.20); RED CELL DISTRIBUTION WIDTH 16.3 % (11.5-14.5); WHITE BLOOD COUNT 10.9 K/uL (4.8-10.8)
[2016-08-25 19:03] LABS: ALBUMIN 3.8 g/dL (3.5-5.0); PROTHROMBIN TIME 11.4 SECONDS (9.7-12.2)
[2016-08-25 19:05] LABS: ALB/GLOB RATIO 0.9 (1.0-2.1); AST/SGOT 22 U/L (14-36); GFR AFRICAN-AMERICAN > 60; GFR NON-AFRICAN AMERICAN > 60
[2016-08-25 19:06] LABS: ALT/SGPT 25 U/L (9-52); BLOOD UREA NITROGEN 15 mg/dL (7-17); CALCIUM 9.5 mg/dl (8.6-10.4)
[2016-08-25 19:15] LABS: B-TYPE NATRIURETIC PEPTIDE 74.1 pg/mL (0-900); CK-MB 0.48 ng/mL (0.0-3.38)
[2016-08-25 19:24] LABS: ABG ALLEN TEST A; ARTERIAL BLOOD GAS HCO3 23.6 mmol/L (21-28); ARTERIAL BLOOD GAS O2 SAT 100.1 % (95-98); ARTERIAL BLOOD GAS PCO2 42 mm/Hg (35-45); ARTERIAL BLOOD GAS PH 7.36 (7.35-7.45); ARTERIAL BLOOD GAS PO2 219 mm/Hg (80-100)
--- NOTE | 2016-08-25 20:32 | CT ---
EXAM: CT Head Without Intravenous Contrast CLINICAL HISTORY: 60 years old, female; Signs and symptoms; Syncope and collapse TECHNIQUE: Axial computed tomography images of the head/brain without intravenous contrast. This CT exam was performed using one or more of the following dose reduction techniques: automated exposure control, adjustment of the mA and/or kV according to patient size, and/or use of iterative reconstruction technique. EXAM DATE/TIME: Exam ordered 08/25/2016 6:49 PM COMPARISON: No relevant prior studies available. FINDINGS: Brain: Unremarkable. No hemorrhage. No significant white matter disease. No edema. Ventricles: Incidental note is made of a cavum vellum interpositum. Bones/joints: There is hyperostosis frontalis interna No acute fracture. Soft tissues: Unremarkable. Sinuses: Unremarkable as visualized. No acute sinusitis. Mastoid air cells: Unremarkable as visualized. No mastoid effusion. IMPRESSION: No acute findings.
[2016-08-25] MEDS ORDERED: (Novolin R) Insulin Human Regular 100 units/ml vial IV ONE (20:43)
[2016-08-25] MEDS ORDERED: (Novolin R) Insulin Human Regular 100 units/ml vial ONE (20:48)
[2016-08-25] MEDS ORDERED: Moxifloxacin IV 400mg/250ml NS 400 MG/250 ML BAG IV ONE (21:06)
[2016-08-25] MEDS ORDERED: Albuterol-Ipratrop 3 mg / 0.5 (3 ml) UD INH PRN (21:07)
[2016-08-25] MEDS ORDERED: Moxifloxacin IV 400mg/250ml NS 400 MG/250 ML BAG IVPB ONE (21:16)
[2016-08-26] MEDS ORDERED: Bisacodyl 5mg EC Tab PO PRN ×2 (03:21→04:55)
[2016-08-26 06:57] LABS: BASO % 0.1 % (0.0-2.0); HEMOGLOBIN 11.6 g/dL (11.0-16.0); LYMPH # 0.9 K/uL (1.0-4.3); LYMPH % 7.5 % (20.0-40.0); MEAN CELL VOLUME 79.7 fL (81.0-99.0); MEAN CORPUSCULAR HEMOGLOBIN 25.7 pg (27.0-31.0); MEAN CORPUSCULAR HGB CONC 32.2 g/dL (33.0-37.0); MEAN PLATELET VOLUME 8.8 fL (7.2-11.7); MONO # 0.2 K/uL (0.0-0.8); MONO % 1.7 % (0.0-10.0); NEUT # 11.2 K/uL (1.8-7.0); NEUT % 90.7 % (50.0-75.0); NRBC % 0.1 % (0.0-2.0); PLATELET COUNT 151 K/uL (130-400); RBC 4.51 Mil/uL (3.80-5.20); RED CELL DISTRIBUTION WIDTH 16.1 % (11.5-14.5); WHITE BLOOD COUNT 12.4 K/uL (4.8-10.8)
[2016-08-26 07:17] LABS: BLOOD UREA NITROGEN 17 mg/dL (7-17); GFR AFRICAN-AMERICAN > 60; GFR NON-AFRICAN AMERICAN > 60
[2016-08-26] MEDS: (Novolog) Insulin Aspart, Recombinant 100 u/ml 10 ml vial SC SCH ×3 (07:57→21:44)
[2016-08-26] MEDS: Albuterol-Ipratrop 3 mg / 0.5 (3 ml) UD INH SCH ×4 (08:37→19:32)
[2016-08-26 09:16] LABS: ANISOCYTOSIS SLIGHT; LYMPHOCYTE 7 % (20-40); MONOCYTE 1 % (0-10); NEUTROPHIL 92 % (50-75); PLATELET ESTIMATE NORMAL (NORMAL); TOTAL CELLS COUNTED 100
--- NOTE | 2016-08-26 09:55 | RAD ---
PROCEDURE: CHEST RADIOGRAPH, 1 VIEW HISTORY: Shortness of breath COMPARISON: 07/26/2016 FINDINGS: LUNGS: Tracheostomy tube is in stable position. There are chronic changes in the left lower lobe. No focal consolidation. PLEURA: No pneumothorax or pleural fluid seen. CARDIOVASCULAR: There is persistent mild cardiomegaly. Prominent central vasculature. OSSEOUS STRUCTURES: No significant abnormalities. VISUALIZED UPPER ABDOMEN: Normal. OTHER FINDINGS: None. IMPRESSION: Chronic changes in the left lower lobe. No active pulmonary disease.
[2016-08-26] MEDS ORDERED: (Novolog) Insulin Aspart, Recombinant 100 u/ml 10 ml vial SC ONE (10:00)
[2016-08-26] MEDS: Pantoprazole 40 mg Susp UD PO SCH (10:56)
[2016-08-26] MEDS: guaiFENesin 200 mg/10 ml Syrup UD PO SCH ×3 (10:56→21:20)
[2016-08-26] MEDS: QUEtiapine 150 mg XR Tab PO SCH (10:57)
[2016-08-26] MEDS: Moxifloxacin IV 400mg/250ml NS 400 MG/250 ML BAG IVPB SCH (21:19)
[2016-08-26] MEDS: (Lantus) Insulin Glargine, Recombinant SC SCH (21:21)
--- NOTE | 2016-08-26 22:15 | CP.PCM.HP ---
History of Present Illness - History of Present Illness History of Present Illness: 60 Y/O HF WITH BR.ASTHMA, TRACHE COLLAR, OBESE WITH COUGH CONGESTION SHORT OF BREATH, WHEEZING AND SHE HAD A SYNCOPE PRIOT TO ER VISIT, NO NAUSEA, SHE IS IN MICU AND SHE WAS ON VENTILATOR LAST NIGHT, NOW OFF AND SEH IS CONGESTED AND COUGHING AND SHE IS WHEEZING Present on Admission - Present on Admission Any Indicators Present on Admission: No History of DVT/PE: No History of Uncontrolled Diabetes: Yes Urinary Catheter: No Decubitus Ulcer Present: No Review of Systems - Review of Systems Systems not reviewed;Unavailable: Unstable Vital Signs, Respiratory Distress - Constitutional Constitutional: Chills, Fatigue, Malaise, Night Sweats, Weakness - EENT Nose/Mouth/Throat: Nasal Congestion - Cardiovascular Cardiovascular: Leg Edema, Palpitations, Pedal Edema - Respiratory Respiratory: Dyspnea on Exertion, Wheezing, Pain on Inspiration, Chest Congestion, Change in Mucous Color, Pain with Coughing - Gastrointestinal Gastrointestinal: Bloating - Genitourinary Genitourinary: Urinary Incontinence - Musculoskeletal Musculoskeletal: Stiffness - Psychiatric Psychiatric: Anhedonia, Anxiety, Depression, Panic Attacks - Endocrine Endocrine: Fatigue Past Patient History - Infectious Disease Hx of Infectious Diseases: None - Tetanus Immunizations Tetanus Immunization: Unknown - Past Medical History & Family History Past Medical History?: Yes - Past Social History Smoking Status: Never Smoked - CARDIAC Hx Cardiac Disorders: Yes Hx Congestive Heart Failure: Yes Hx Hypertension: Yes - PULMONARY Hx Respiratory Disorders: Yes Hx Asthma: Yes Hx Bronchitis: Yes Hx Chronic Obstructive Pulmonary Disease (COPD): Yes Hx Emphysema: Yes Hx Pneumonia: Yes Hx Sleep Apnea: Yes Other/Comment: with tracheostomy - NEUROLOGICAL Hx Neurological Disorder: Yes Hx Dizziness: Yes Hx Seizures: Yes Hx Syncope: Yes - HEENT Hx HEENT Problems: Yes Hx Cataracts: Yes - RENAL Hx Chronic Kidney Disease: No - ENDOCRINE/METABOLIC Hx Hypothyroidism: No - HEMATOLOGICAL/ONCOLOGICAL Hx Blood Disorders: No - INTEGUMENTARY Hx Dermatological Problems: No - MUSCULOSKELETAL/RHEUMATOLOGICAL Hx Falls: No - GASTROINTESTINAL Hx Gastrointestinal Disorders: Yes Other/Comment: cholecystectomy - GENITOURINARY/GYNECOLOGICAL Hx Sexually Transmitted Disorders: No - PSYCHIATRIC Hx Substance Use: No - SURGICAL HISTORY Hx Surgeries: Yes Hx Appendectomy: Yes Hx Cholecystectomy: Yes - ANESTHESIA Hx Anesthesia: Yes Hx Anesthesia Reactions: No Hx Malignant Hyperthermia: No Has any member of the family had a problem w/ anesthesia?: No Meds Allergies/Adverse Reactions: Allergies Allergy/AdvReac Type Severity Reaction Status Date / Time aspirin Allergy ANAPHYLAXIS Verified 07/24/16 22:31 ceftriaxone sodium Allergy ANAPHYLAXIS Verified 07/24/16 22:31 [From Rocephin] ibuprofen [From Motrin] Allergy ANAPHYLAXIS Verified 07/24/16 22:31 iodine Allergy ANAPHYLAXIS Verified 07/24/16 22:31 raspberry Allergy ANAPHYLAXIS Verified 07/24/16 22:31 Physical Exam - Constitutional Appears: In Acute Distress - Head Exam Head Exam: ATRAUMATIC, NORMAL INSPECTION, NORMOCEPHALIC - Eye Exam Eye Exam: EOMI, Normal appearance Pupil Exam: NORMAL ACCOMODATION - ENT Exam ENT Exam: Mucous Membranes Moist, Normal Exam - Neck Exam Neck exam: Positive for: Normal Inspection - Respiratory Exam Respiratory Exam: Prolonged Expiratory Phase, Rhonchi, Wheezes, Respiratory Distress - Cardiovascular Exam Cardiovascular Exam: REGULAR RHYTHM, +S1, +S2 - GI/Abdominal Exam GI & Abdominal Exam: Normal Bowel Sounds - Exam Exam: NORMAL INSPECTION - Back Exam Back exam: NORMAL INSPECTION - Neurological Exam Neurological exam: Alert Results - Vital Signs Recent Vital Signs: Last Vital Signs Temp 99.1 F 08/26/16 08:00 Pulse 85 08/26/16 09:00 Resp 17 08/26/16 09:00 BP 115/64 08/26/16 08:43 Pulse Ox 98 08/26/16 09:00 - Labs Result Diagrams: 08/26/16 06:46 08/26/16 06:46 Labs: Laboratory Results - last 24 hr 08/26/16 08/26/16 08/26/16 06:46 06:46 08:13 WBC 12.4 H RBC 4.51 Hgb 11.6 Hct 36.0 MCV 79.7 L MCH 25.7 L MCHC 32.2 L RDW 16.1 H Plt Count 151 MPV 8.8 Neut % (Auto) 90.7 H Lymph % (Auto) 7.5 L [place] % (Auto) 1.7 Eos % (Auto) 0.0 Baso % (Auto) 0.1 Neut # 11.2 H Lymph # 0.9 L [place] # 0.2 Eos # 0.0 Baso # 0.0 Neutrophils % (Manual) 92 H Lymphocytes % (Manual) 7 L Monocytes % (Manual) 1 Platelet Estimate Normal Anisocytosis (manual) Slight Sodium 136 Potassium 4.7 Chloride 101 Carbon Dioxide 21 L Anion Gap 19 BUN 17 Creatinine 0.6 L Est GFR ( Amer) > 60 Est GFR (Non-Af Amer) > 60 POC Glucose (mg/dL) 405 H* Random Glucose 451 H* D Calcium 9.0 08/26/16 08/26/16 08/26/16 11:16 16:15 21:38 WBC RBC Hgb Hct MCV MCH MCHC RDW Plt Count MPV Neut % (Auto) Lymph % (Auto) [place] % (Auto) Eos % (Auto) Baso % (Auto) Neut # Lymph # [place] # Eos # Baso # Neutrophils % (Manual) Lymphocytes % (Manual) Monocytes % (Manual) Platelet Estimate Anisocytosis (manual) Sodium Potassium Chloride Carbon Dioxide Anion Gap BUN Creatinine Est GFR ( Amer) Est GFR (Non-Af Amer) POC Glucose (mg/dL) 333 H 231 H 262 H Random Glucose Calcium Assessment & Plan (1) Syncope and collapse Assessment and Plan: ON MONITOR, OBSERVATION Status: Acute (2) Chr obstructive pulmonary disease w/ acute lower respiratory infxn Status: Acute (3) Diabetes mellitus, insulin dependent (IDDM), uncontrolled Status: Chronic (4) Bipolar disorder Status: Chronic (5) HTN (hypertension) Status: Chronic
[2016-08-26] MEDS ORDERED: Enoxaparin 40 mg Syringe SC ONE (22:41)
[2016-08-27] MEDS: Oxycodone/Acetaminophen 5/325 mg Tab PO PRN ×2 (02:57→10:30)
[2016-08-27 06:29] LABS: HEMOGLOBIN 11.6 g/dL (11.0-16.0); MEAN CELL VOLUME 79.9 fL (81.0-99.0); MEAN CORPUSCULAR HEMOGLOBIN 25.9 pg (27.0-31.0); MEAN CORPUSCULAR HGB CONC 32.5 g/dL (33.0-37.0); MEAN PLATELET VOLUME 9.1 fL (7.2-11.7); RBC 4.47 Mil/uL (3.80-5.20); RED CELL DISTRIBUTION WIDTH 16.1 % (11.5-14.5); WHITE BLOOD COUNT 10.6 K/uL (4.8-10.8)
[2016-08-27 07:00] LABS: GFR AFRICAN-AMERICAN > 60; GFR NON-AFRICAN AMERICAN > 60
[2016-08-27 07:01] LABS: BLOOD UREA NITROGEN 15 mg/dL (7-17); CALCIUM 8.5 mg/dl (8.6-10.4)
[2016-08-27] MEDS: (Novolog) Insulin Aspart, Recombinant 100 u/ml 10 ml vial SC SCH ×5 (08:29→21:55)
[2016-08-27] MEDS: Albuterol-Ipratrop 3 mg / 0.5 (3 ml) UD INH SCH ×4 (08:31→19:44)
[2016-08-27] MEDS: QUEtiapine 150 mg XR Tab PO SCH ×3 (08:32→18:00)
[2016-08-27] MEDS: guaiFENesin 200 mg/10 ml Syrup UD PO SCH ×5 (08:32→21:56)
[2016-08-27] MEDS: Enoxaparin 40 mg Syringe SC SCH (10:31)
[2016-08-27] MEDS: Pantoprazole 40 mg Susp UD PO SCH (10:31)
--- NOTE | 2016-08-27 12:35 | CP.PCM.CON ---
History of Present Illness - History of Present Illness History of Present Illness: This is a case of 60 year old female with long hx of schizoaffective disorder admiited for syncope and exacerbation of COPD referred by Dr. Khan for evaluation and comanagement of her psych problem.Patient well known to me through the years and having family issues with her daughter, Toshia whom she has been living with for many years.Patient's daughter is losing her housing and the building is being sold and patient's daughter is reluctant to care for her anymore. Has been having problems with her son in law as patient needs a lot of care due to her multiple medical problems. Patient has been feeling depressed and states she wants to and having visual hallucinations seeing black birds in her room x 3 days. No active si or hi when seen. Very tearful when seen. Past Psych hx- long hx of schizoaffective disorder with multiple psych admissions the past and hx of suicide attempts. Drug and Alcohol Hx- denies any Medical HX- COPD, Respiratory failure s/p trach, CHF, HTN, Obesity, seizures, CALIX[place], pneumonoia Psychosocail HX- pt is disabled and lives with daughter, Toshia and her daughter's family. Has 3 daughters MSE- obese female, seen in ICU, oriented x 3, s/p trach, sppech is halting, affect is reactive, mood is depressed. Thought process- coherent Thought content - no active si or hi, has off and on visual hallucinations seeing black birds in her room, complaining of insomnia. Attention and Memory- fair. Insight and Judgment fair. Impulse control fair. Review of Systems - Review of Systems Review of Systems: Patient seenin ICU, alert , appers distraught - Constitutional Constitutional: Sleep Apnea, Weakness - EENT Additional comments: no headache, no blurring of vision - Cardiovascular Additional comments: no chest pain - Respiratory Additional comments: s/p trach and off and off dyspnea - Genitourinary Additional comments: no dysuria - Musculoskeletal Musculoskeletal: Muscle Weakness - Integumentary Additional comments: no pruritus or diaphoresis - Neurological Additional comments: alert and oriented x 3 - Psychiatric Psychiatric: Abnormal Sleep Pattern, Anhedonia, Anxiety, Depression, Difficulty Concentrating, Hopelessness, Mood Swings, Visual Hallucinations Past Patient History - Infectious Disease Hx of Infectious Diseases: None - Tetanus Immunizations Tetanus Immunization: Unknown - Past Medical History & Family History Past Medical History?: Yes - Past Social History Smoking Status: Never Smoked - CARDIAC Hx Cardiac Disorders: Yes Hx Congestive Heart Failure: Yes Hx Hypertension: Yes - PULMONARY Hx Respiratory Disorders: Yes Hx Asthma: Yes Hx Bronchitis: Yes Hx Chronic Obstructive Pulmonary Disease (COPD): Yes Hx Emphysema: Yes Hx Pneumonia: Yes Hx Sleep Apnea: Yes Other/Comment: with tracheostomy - NEUROLOGICAL Hx Neurological Disorder: Yes Hx Dizziness: Yes Hx Seizures: Yes Hx Syncope: Yes - HEENT Hx HEENT Problems: Yes Hx Cataracts: Yes - RENAL Hx Chronic Kidney Disease: No - ENDOCRINE/METABOLIC Hx Hypothyroidism: No - HEMATOLOGICAL/ONCOLOGICAL Hx Blood Disorders: No - INTEGUMENTARY Hx Dermatological Problems: No - MUSCULOSKELETAL/RHEUMATOLOGICAL Hx Falls: No - GASTROINTESTINAL Hx Gastrointestinal Disorders: Yes Other/Comment: cholecystectomy - GENITOURINARY/GYNECOLOGICAL Hx Sexually Transmitted Disorders: No - PSYCHIATRIC Hx Substance Use: No - SURGICAL HISTORY Hx Surgeries: Yes Hx Appendectomy: Yes Hx Cholecystectomy: Yes - ANESTHESIA Hx Anesthesia: Yes Hx Anesthesia Reactions: No Hx Malignant Hyperthermia: No Has any member of the family had a problem w/ anesthesia?: No Meds Allergies/Adverse Reactions: Allergies Allergy/AdvReac Type Severity Reaction Status Date / Time aspirin Allergy ANAPHYLAXIS Verified 07/24/16 22:31 ceftriaxone sodium Allergy ANAPHYLAXIS Verified 07/24/16 22:31 [From Rocephin] ibuprofen [From Motrin] Allergy ANAPHYLAXIS Verified 07/24/16 22:31 iodine Allergy ANAPHYLAXIS Verified 07/24/16 22:31 raspberry Allergy ANAPHYLAXIS Verified 07/24/16 22:31 - Medications Medications: Current Medications Albuterol/Ipratropium (Duoneb 3 Mg/0.5 Mg (3 Ml) Ud) 3 ml INH RQID [facility] Last Admin: 08/27/16 11:40 Dose: 3 ml Benzonatate (Tessalon Perles) 100 mg PO TID [facility] Last Admin: 08/27/16 10:31 Dose: 100 mg Enoxaparin Sodium (Lovenox) 40 mg SC DAILY [facility] Last Admin: 08/27/16 10:31 Dose: 40 mg Gabapentin (Neurontin) 800 mg PO TID [facility] Last Admin: 08/27/16 10:31 Dose: 800 mg Guaifenesin (Robitussin) 200 mg PO QID [facility] Last Admin: 08/27/16 10:31 Dose: 200 mg Moxifloxacin HCl (Avelox Iv 400mg/250ml Ns) 400 mg in 250 mls @ 167 mls/hr IVPB Q24H [facility] Last Admin: 08/26/16 21:19 Dose: 167 mls/hr Insulin Aspart (Novolog) 0 unit SC [facility] PRN Reason: Protocol Last Admin: 08/27/16 08:32 Dose: Not Given Insulin Glargine (Lantus) 30 unit SC [facility] Last Admin: 08/26/16 21:21 Dose: 30 units Lamotrigine (Lamictal) 100 mg PO Q12H [facility] Last Admin: 08/27/16 10:31 Dose: 100 mg Lorazepam (Ativan) 2 mg PO TID PRN PRN Reason: Anxiety Montelukast Sodium (Singulair) 10 mg PO [facility] Last Admin: 08/26/16 21:21 Dose: 10 mg Oxycodone/Acetaminophen (Percocet 5/325 Mg Tab) 2 tab PO Q4H PRN PRN Reason: pain Stop: 08/29/16 03:22 Last Admin: 08/27/16 02:57 Dose: 2 tab Pantoprazole Sodium (Protonix Susp) 40 mg PO DAILY [facility] Last Admin: 08/27/16 10:31 Dose: 40 mg Quetiapine Fumarate (Seroquel Xr) 150 mg PO BID [facility] Last Admin: 08/27/16 10:31 Dose: 150 mg Sertraline HCl (Zoloft) 100 mg PO [facility] Last Admin: 08/26/16 21:43 Dose: 100 mg Trazodone HCl (Desyrel) 150 mg PO [facility] Last Admin: 08/26/16 21:20 Dose: 150 mg Results - Vital Signs Recent Vital Signs: Last Vital Signs Temp 98 F 08/27/16 04:00 Pulse 78 08/27/16 06:00 Resp 15 08/27/16 06:00 BP 135/92 H 08/27/16 06:44 Pulse Ox 97 08/27/16 06:00 - Labs Result Diagrams: 08/27/16 06:15 08/27/16 06:15 Labs: Laboratory Results - last 24 hr 08/26/16 08/26/16 08/27/16 16:15 21:38 06:15 WBC 10.6 RBC 4.47 Hgb 11.6 Hct 35.7 MCV 79.9 L MCH 25.9 L MCHC 32.5 L RDW 16.1 H Plt Count 154 MPV 9.1 Sodium Potassium Chloride Carbon Dioxide Anion Gap BUN Creatinine Est GFR ( Amer) Est GFR (Non-Af Amer) POC Glucose (mg/dL) 231 H 262 H Random Glucose Calcium 08/27/16 08/27/16 06:15 11:55 WBC RBC Hgb Hct MCV MCH MCHC RDW Plt Count MPV Sodium 139 Potassium 3.8 Chloride 102 Carbon Dioxide 25 Anion Gap 16 BUN 15 Creatinine 0.7 Est GFR ( Amer) > 60 Est GFR (Non-Af Amer) > 60 POC Glucose (mg/dL) 235 H Random Glucose 188 H Calcium 8.5 L Assessment & Plan - Assessment and Plan (Free Text) Assessment: Schizoaffective disorder- bipolar type COPD, S/P trach, DM, OSACHF, seizures Plan: Patient to continue current meds. Suggest pt to be referred to [facility] for possible LINDSEY and possible LT care as pt is losing housing and may need placement.
[2016-08-27] MEDS: Moxifloxacin IV 400mg/250ml NS 400 MG/250 ML BAG IVPB SCH (21:30)
[2016-08-27] MEDS: (Lantus) Insulin Glargine, Recombinant SC SCH (21:54)
--- NOTE | 2016-08-27 23:37 | CP.PCM.PN ---
Subjective - Date & Time of Evaluation Date of Evaluation: 08/27/16 Time of Evaluation: 20:45 - Subjective Subjective: Pt seen and examined, still coughing , wheezing Objective - Vital Signs/Intake and Output Vital Signs (last 24 hours): Temp Pulse Resp BP Pulse Ox 98.5 F 110 H 18 187/111 H 96 08/27/16 17:46 08/27/16 19:07 08/27/16 19:07 08/27/16 19:07 08/27/16 19:07 Intake and Output: 08/27/16 08/28/16 18:59 06:59 Intake Total 175 Output Total 400 Balance -225 - Medications Medications: Current Medications Albuterol/Ipratropium (Duoneb 3 Mg/0.5 Mg (3 Ml) Ud) 3 ml INH RQID [facility] Last Admin: 08/27/16 19:44 Dose: 3 ml Benzonatate (Tessalon Perles) 100 mg PO TID [facility] Last Admin: 08/27/16 18:00 Dose: 100 mg Enoxaparin Sodium (Lovenox) 40 mg SC DAILY [facility] Last Admin: 08/27/16 10:31 Dose: 40 mg Gabapentin (Neurontin) 800 mg PO TID [facility] Last Admin: 08/27/16 17:59 Dose: 800 mg Guaifenesin (Robitussin) 200 mg PO QID [facility] Last Admin: 08/27/16 21:56 Dose: 200 mg Moxifloxacin HCl (Avelox Iv 400mg/250ml Ns) 400 mg in 250 mls @ 167 mls/hr IVPB Q24H [facility] Last Admin: 08/27/16 21:30 Dose: 167 mls/hr Insulin Aspart (Novolog) 0 unit SC ACHS [facility] PRN Reason: Protocol Last Admin: 08/27/16 21:55 Dose: Not Given Insulin Glargine (Lantus) 30 unit SC [facility] Last Admin: 08/27/16 21:54 Dose: 30 units Lamotrigine (Lamictal) 100 mg PO Q12H [facility] Last Admin: 08/27/16 21:54 Dose: 100 mg Lorazepam (Ativan) 2 mg PO TID PRN PRN Reason: Anxiety Last Admin: 08/27/16 21:58 Dose: 2 mg Montelukast Sodium (Singulair) 10 mg PO [facility] Last Admin: 08/27/16 21:56 Dose: 10 mg Oxycodone/Acetaminophen (Percocet 5/325 Mg Tab) 2 tab PO Q4H PRN PRN Reason: pain Stop: 08/29/16 03:22 Last Admin: 08/27/16 10:30 Dose: 2 tab Pantoprazole Sodium (Protonix Susp) 40 mg PO DAILY [facility] Last Admin: 08/27/16 10:31 Dose: 40 mg Quetiapine Fumarate (Seroquel Xr) 150 mg PO BID [facility] Last Admin: 08/27/16 18:00 Dose: 150 mg Sertraline HCl (Zoloft) 100 mg PO [facility] Last Admin: 08/27/16 21:57 Dose: 100 mg Trazodone HCl (Desyrel) 150 mg PO [facility] Last Admin: 08/27/16 21:53 Dose: 150 mg - Labs Labs: 08/27/16 06:15 08/27/16 06:15 PT 11.4 SECONDS (9.7-12.2) 08/25/16 18:51 INR 1.0 08/25/16 18:51 APTT 24 SECONDS (21-34) 08/25/16 18:51 - Constitutional Appears: No Acute Distress - Head Exam Head Exam: ATRAUMATIC, NORMAL INSPECTION, NORMOCEPHALIC - Respiratory Exam Respiratory Exam: Decreased Breath Sounds, Prolonged Expiratory Phase, Rhonchi, Wheezes - Cardiovascular Exam Cardiovascular Exam: REGULAR RHYTHM, +S1, +S2. absent: Murmur - Rectal Exam Rectal Exam: Deferred Assessment and Plan (1) Syncope and collapse Status: Suspected (2) Chr obstructive pulmonary disease w/ acute lower respiratory infxn Status: Acute (3) Diabetes mellitus, insulin dependent (IDDM), uncontrolled Status: Chronic (4) Bipolar disorder Status: Chronic (5) HTN (hypertension) Status: Chronic
[2016-08-28] MEDS: Oxycodone/Acetaminophen 5/325 mg Tab PO PRN ×2 (06:41→14:16)
[2016-08-28 06:49] LABS: BLOOD UREA NITROGEN 13 mg/dL (7-17); CALCIUM 8.8 mg/dl (8.6-10.4); GFR AFRICAN-AMERICAN > 60; GFR NON-AFRICAN AMERICAN > 60
[2016-08-28 06:50] LABS: MAGNESIUM 1.7 mg/dL (1.6-2.3)
[2016-08-28 06:56] LABS: HEMOGLOBIN 12.6 g/dL (11.0-16.0); MEAN CELL VOLUME 80.2 fL (81.0-99.0); MEAN CORPUSCULAR HEMOGLOBIN 25.4 pg (27.0-31.0); MEAN CORPUSCULAR HGB CONC 31.7 g/dL (33.0-37.0); MEAN PLATELET VOLUME 8.4 fL (7.2-11.7); RBC 4.98 Mil/uL (3.80-5.20); WHITE BLOOD COUNT 9.6 K/uL (4.8-10.8)
[2016-08-28] MEDS: (Novolog) Insulin Aspart, Recombinant 100 u/ml 10 ml vial SC SCH ×4 (08:00→21:48)
[2016-08-28] MEDS: Albuterol-Ipratrop 3 mg / 0.5 (3 ml) UD INH SCH ×4 (08:16→19:56)
[2016-08-28] MEDS: Pantoprazole 40 mg Susp UD PO SCH (11:04)
[2016-08-28] MEDS: Enoxaparin 40 mg Syringe SC SCH (11:04)
[2016-08-28] MEDS: guaiFENesin 200 mg/10 ml Syrup UD PO SCH ×4 (11:04→21:35)
[2016-08-28] MEDS: QUEtiapine 150 mg XR Tab PO SCH (11:04)
--- NOTE | 2016-08-28 13:10 | CP.PCM.PN ---
Subjective - Date & Time of Evaluation Date of Evaluation: 08/28/16 Time of Evaluation: 13:06 - Subjective Subjective: Patient seen in ICU with 1:1 watch as pt is complaining of suicidal ideation and severe depression related to her family issues and unstable housing. NO active si or hi reported when seen.A review of her old records showed that pt was on higher doses of Seroquel and was taking Seroquel 400 mg po bid but now taking Seroquel 150 mg po bid and will readjust her dose in conjunction with her other psych meds. MSE- obese female with 1:1 watch, conversing in [place]an. Affect is reactive. Mood is depressed. TP-coherent TC- has off and on suicidal ideation and visual hallucinations seeing black birds. Attention/ Memory fair. Insight and Judgment fair. Impulse control fair. Patient resuing to to for voluntary inpt psych admission when asked. Objective - Vital Signs/Intake and Output Vital Signs (last 24 hours): Temp Pulse Resp BP Pulse Ox 97.5 F L 104 H 19 122/74 98 08/28/16 05:00 08/28/16 08:00 08/28/16 08:00 08/28/16 07:43 08/28/16 08:00 Intake and Output: 08/28/16 08/28/16 06:59 18:59 Intake Total 250 500 Output Total 500 500 Balance -250 0 - Medications Medications: Current Medications Albuterol/Ipratropium (Duoneb 3 Mg/0.5 Mg (3 Ml) Ud) 3 ml INH RQID [facility] Last Admin: 08/28/16 11:28 Dose: 3 ml Benzonatate (Tessalon Perles) 100 mg PO TID [facility] Last Admin: 08/28/16 11:03 Dose: 100 mg Enoxaparin Sodium (Lovenox) 40 mg SC DAILY [facility] Last Admin: 08/28/16 11:04 Dose: 40 mg Gabapentin (Neurontin) 800 mg PO TID [facility] Last Admin: 08/28/16 11:04 Dose: 800 mg Guaifenesin (Robitussin) 200 mg PO QID [facility] Last Admin: 08/28/16 11:04 Dose: 200 mg Moxifloxacin HCl (Avelox Iv 400mg/250ml Ns) 400 mg in 250 mls @ 167 mls/hr IVPB Q24H [facility] Last Admin: 08/27/16 21:30 Dose: 167 mls/hr Insulin Aspart (Novolog) 0 unit SC ACHS [facility] PRN Reason: Protocol Last Admin: 08/28/16 08:00 Dose: 1 unit Insulin Glargine (Lantus) 30 unit SC HS [facility] Last Admin: 08/27/16 21:54 Dose: 30 units Lamotrigine (Lamictal) 100 mg PO Q12H [facility] Last Admin: 08/28/16 11:04 Dose: 100 mg Lorazepam (Ativan) 2 mg PO TID PRN PRN Reason: Anxiety Last Admin: 08/27/16 21:58 Dose: 2 mg Montelukast Sodium (Singulair) 10 mg PO [facility] Last Admin: 08/27/16 21:56 Dose: 10 mg Oxycodone/Acetaminophen (Percocet 5/325 Mg Tab) 2 tab PO Q4H PRN PRN Reason: pain Stop: 08/29/16 03:22 Last Admin: 08/28/16 06:41 Dose: 2 tab Pantoprazole Sodium (Protonix Susp) 40 mg PO DAILY [facility] Last Admin: 08/28/16 11:04 Dose: 40 mg Quetiapine Fumarate (Seroquel) 400 mg PO Q12H [facility] Sertraline HCl (Zoloft) 100 mg PO [facility] Last Admin: 08/27/16 21:57 Dose: 100 mg Trazodone HCl (Desyrel) 150 mg PO [facility] Last Admin: 08/27/16 21:53 Dose: 150 mg - Labs Labs: 08/28/16 06:28 08/28/16 06:28 PT 11.4 SECONDS (9.7-12.2) 08/25/16 18:51 INR 1.0 08/25/16 18:51 APTT 24 SECONDS (21-34) 08/25/16 18:51 - Constitutional Appears: No Acute Distress - Head Exam Head Exam: NORMOCEPHALIC - Eye Exam Eye Exam: Normal appearance - ENT Exam ENT Exam: Normal Exam - Neck Exam Additional comments: s/p trach collar placement - Respiratory Exam Additional comments: no dyspnea, - Cardiovascular Exam Additional comments: no chest pain - GI/Abdominal Exam Additional comments: Appetite is fair. eating well. no nausea or vomiting - Extremities Exam Extremities Exam: Full ROM - Back Exam Additional comments: no back pain - Neurological Exam Neurological Exam: Alert, Awake, Oriented x3 - Psychiatric Exam Psychiatric exam: Anxious, Depressed Assessment and Plan - Assessment and Plan (Free Text) Assessment: Schizoaffective disorder- bipolar type COPD, respiratory failure, s/p trach DM, CHF Plan: Will change dose of Seroquel to 400 mg po bid from 150 mg po bid for psychosis. Continue all other meds. If pt will will transferred to regular floor. will need 1:1 watch for suicidal ideation. Patient will benefit from LINDSEY to [facility] and will need possible LT placement. Refusing inpt psych admission when offered.
--- NOTE | 2016-08-28 14:06 | CARD ---
APPROVED REPORT EKG Measurement Heart [id number] <Conclusion> Sinus tachycardia Septal infarct, age undetermined Abnormal ECG
[2016-08-28] MEDS: Moxifloxacin IV 400mg/250ml NS 400 MG/250 ML BAG IVPB SCH (21:33)
[2016-08-28] MEDS: (Lantus) Insulin Glargine, Recombinant SC SCH (21:36)
--- NOTE | 2016-08-28 23:57 | CP.PCM.PN ---
Subjective - Date & Time of Evaluation Date of Evaluation: 08/28/16 Time of Evaluation: 22:00 - Subjective Subjective: LESS COUGH,LESS SOB, POSITIVE WHEEZING, NO CHEST PAIN, POSITIVE CHEST CONGESTION , NO N/V WEAKNESS, DEPRESSED Objective - Vital Signs/Intake and Output Vital Signs (last 24 hours): Temp Pulse Resp BP Pulse Ox 97.4 F L 86 19 111/62 95 08/28/16 17:00 08/28/16 20:00 08/28/16 20:00 08/28/16 19:43 08/28/16 20:00 Intake and Output: 08/28/16 08/29/16 18:59 06:59 Intake Total 740 Output Total 1150 Balance -410 - Medications Medications: Current Medications Albuterol/Ipratropium (Duoneb 3 Mg/0.5 Mg (3 Ml) Ud) 3 ml INH RQID [facility] Last Admin: 08/28/16 19:56 Dose: 3 ml Benzonatate (Tessalon Perles) 100 mg PO TID [facility] Last Admin: 08/28/16 17:32 Dose: 100 mg Enoxaparin Sodium (Lovenox) 40 mg SC DAILY [facility] Last Admin: 08/28/16 11:04 Dose: 40 mg Gabapentin (Neurontin) 800 mg PO TID [facility] Last Admin: 08/28/16 17:31 Dose: 800 mg Guaifenesin (Robitussin) 200 mg PO QID [facility] Last Admin: 08/28/16 21:35 Dose: 200 mg Moxifloxacin HCl (Avelox Iv 400mg/250ml Ns) 400 mg in 250 mls @ 167 mls/hr IVPB Q24H [facility] Last Admin: 08/28/16 21:33 Dose: 167 mls/hr Insulin Aspart (Novolog) 0 unit SC ACHS [facility] PRN Reason: Protocol Last Admin: 08/28/16 21:48 Dose: 2 unit Insulin Glargine (Lantus) 30 unit SC HS [facility] Last Admin: 08/28/16 21:36 Dose: 30 units Lamotrigine (Lamictal) 100 mg PO Q12H [facility] Last Admin: 08/28/16 21:35 Dose: 100 mg Lorazepam (Ativan) 2 mg PO TID PRN PRN Reason: Anxiety Last Admin: 08/27/16 21:58 Dose: 2 mg Montelukast Sodium (Singulair) 10 mg PO [facility] Last Admin: 08/28/16 21:35 Dose: 10 mg Oxycodone/Acetaminophen (Percocet 5/325 Mg Tab) 2 tab PO Q4H PRN PRN Reason: pain Stop: 08/29/16 03:22 Last Admin: 08/28/16 14:16 Dose: 2 tab Pantoprazole Sodium (Protonix Susp) 40 mg PO DAILY [facility] Last Admin: 08/28/16 11:04 Dose: 40 mg Quetiapine Fumarate (Seroquel) 400 mg PO Q12H [facility] Last Admin: 08/28/16 14:00 Dose: 400 mg Sertraline HCl (Zoloft) 100 mg PO [facility] Last Admin: 08/28/16 21:35 Dose: 100 mg Trazodone HCl (Desyrel) 150 mg PO [facility] Last Admin: 08/28/16 21:34 Dose: 150 mg - Labs Labs: 08/28/16 06:28 08/28/16 06:28 PT 11.4 SECONDS (9.7-12.2) 08/25/16 18:51 INR 1.0 08/25/16 18:51 APTT 24 SECONDS (21-34) 08/25/16 18:51 - Constitutional Appears: Non-toxic, No Acute Distress, Chronically Ill - Head Exam Head Exam: ATRAUMATIC, NORMAL INSPECTION, NORMOCEPHALIC - Eye Exam Eye Exam: EOMI, Normal appearance, PERRL Pupil Exam: NORMAL ACCOMODATION - ENT Exam ENT Exam: Mucous Membranes Moist, Normal Exam - Neck Exam Neck Exam: Full ROM (TRACHE WITH THICK SECRETIONS) - Cardiovascular Exam Cardiovascular Exam: REGULAR RHYTHM, +S1, +S2 - GI/Abdominal Exam GI & Abdominal Exam: Normal Bowel Sounds - Rectal Exam Rectal Exam: NORMAL INSPECTION - Extremities Exam Extremities Exam: Full ROM, Normal Capillary Refill - Neurological Exam Neurological Exam: Alert, Awake, CN II-XII Intact, Normal Gait, Oriented x3 - Psychiatric Exam Psychiatric exam: Anxious, Depressed, Flat Affect - Skin Skin Exam: Intact Assessment and Plan (1) Syncope and collapse Status: Suspected (2) Chr obstructive pulmonary disease w/ acute lower respiratory infxn Assessment & Plan: CONTINUE ANTIBIOTICS Status: Acute (3) Diabetes mellitus, insulin dependent (IDDM), uncontrolled Status: Chronic (4) Bipolar disorder Status: Chronic (5) HTN (hypertension) Status: Chronic
[2016-08-29] MEDS: Albuterol-Ipratrop 3 mg / 0.5 (3 ml) UD INH SCH ×4 (07:33→20:21)
[2016-08-29] MEDS: (Novolog) Insulin Aspart, Recombinant 100 u/ml 10 ml vial SC SCH ×4 (08:12→21:32)
[2016-08-29] MEDS: Enoxaparin 40 mg Syringe SC SCH (09:52)
[2016-08-29] MEDS: Pantoprazole 40 mg Susp UD PO SCH (09:52)
[2016-08-29] MEDS: guaiFENesin 200 mg/10 ml Syrup UD PO SCH ×4 (09:52→21:41)
--- NOTE | 2016-08-29 10:28 | RAD ---
HISTORY: PNA COMPARISON: Comparison chest 08/25/2016 FINDINGS: LUNGS: In situ soft tracheostomy tube in good position. Poor inspiration with low lung volumes, crowded bronchovascular markings and mild bibasilar atelectasis left greater than right. Developing left lower lobe infiltrate could be excluded with followup radiographs. . PLEURA: No significant pleural effusion identified, no pneumothorax apparent. CARDIOVASCULAR: Heart appears borderline/ mildly enlarged. OSSEOUS STRUCTURES: No significant abnormalities. VISUALIZED UPPER ABDOMEN: Normal. OTHER FINDINGS: None. IMPRESSION: In situ soft tracheostomy tube in good position. Poor inspiration with low lung volumes, crowded bronchovascular markings and mild bibasilar atelectasis left greater than right. Developing left lower lobe infiltrate could be excluded with followup radiographs. .
[2016-08-29] MEDS ORDERED: Oxycodone/Acetaminophen 5/325 mg Tab PO PRN (21:15)
[2016-08-29] MEDS: Moxifloxacin IV 400mg/250ml NS 400 MG/250 ML BAG IVPB SCH (21:37)
[2016-08-29] MEDS: (Lantus) Insulin Glargine, Recombinant SC SCH (21:40)
--- NOTE | 2016-08-29 21:55 | CP.PCM.PN ---
Subjective - Date & Time of Evaluation Date of Evaluation: 08/29/16 Time of Evaluation: 09:00 - Subjective Subjective: Pt seen and examined, is less depressed, more alert, has proteus in sputum, mutidrug resultant, is improving. less cough, less wheezing Objective - Vital Signs/Intake and Output Vital Signs (last 24 hours): Temp Pulse Resp BP Pulse Ox 98.8 F 90 21 106/64 96 08/29/16 20:00 08/29/16 20:00 08/29/16 20:00 08/29/16 20:43 08/29/16 20:00 Intake and Output: 08/29/16 08/30/16 18:59 06:59 Intake Total 360 Output Total 1200 Balance -840 - Medications Medications: Current Medications Albuterol/Ipratropium (Duoneb 3 Mg/0.5 Mg (3 Ml) Ud) 3 ml INH RQID [facility] Last Admin: 08/29/16 20:21 Dose: 3 ml Benzonatate (Tessalon Perles) 100 mg PO TID [facility] Last Admin: 08/29/16 17:15 Dose: 100 mg Enoxaparin Sodium (Lovenox) 40 mg SC DAILY [facility] Last Admin: 08/29/16 09:52 Dose: 40 mg Gabapentin (Neurontin) 800 mg PO TID [facility] Last Admin: 08/29/16 17:15 Dose: 800 mg Guaifenesin (Robitussin) 200 mg PO QID [facility] Last Admin: 08/29/16 21:41 Dose: 200 mg Moxifloxacin HCl (Avelox Iv 400mg/250ml Ns) 400 mg in 250 mls @ 167 mls/hr IVPB Q24H [facility] Last Admin: 08/29/16 21:37 Dose: 167 mls/hr Insulin Aspart (Novolog) 0 unit SC ACHS [facility] PRN Reason: Protocol Last Admin: 08/29/16 21:32 Dose: Not Given Insulin Glargine (Lantus) 30 unit SC HS [facility] Last Admin: 08/29/16 21:40 Dose: 30 units Lamotrigine (Lamictal) 100 mg PO Q12H [facility] Last Admin: 08/29/16 21:40 Dose: 100 mg Lorazepam (Ativan) 2 mg PO TID PRN PRN Reason: Anxiety Last Admin: 08/27/16 21:58 Dose: 2 mg Montelukast Sodium (Singulair) [address] [facility] Last Admin: 08/29/16 21:41 Dose: 10 mg Oxycodone/Acetaminophen (Percocet 5/325 Mg Tab) 2 tab PO Q4H PRN PRN Reason: Pain, moderate (4-7) Stop: 09/01/16 21:16 Last Admin: 08/29/16 21:38 Dose: 2 tab Pantoprazole Sodium (Protonix Susp) 40 mg PO DAILY [facility] Last Admin: 08/29/16 09:52 Dose: 40 mg Quetiapine Fumarate (Seroquel) 400 mg PO Q12H [facility] Last Admin: 08/29/16 13:23 Dose: 400 mg Sertraline HCl (Zoloft) [address] [facility] Last Admin: 08/29/16 21:41 Dose: 100 mg Trazodone HCl (Desyrel) 150 [address] [facility] Last Admin: 08/29/16 21:39 Dose: 150 mg - Labs Labs: 08/28/16 06:28 08/28/16 06:28 PT 11.4 SECONDS (9.7-12.2) 08/25/16 18:51 INR 1.0 08/25/16 18:51 APTT 24 SECONDS (21-34) 08/25/16 18:51 - Constitutional Appears: No Acute Distress - Head Exam Head Exam: ATRAUMATIC, NORMAL INSPECTION, NORMOCEPHALIC - Eye Exam Eye Exam: EOMI, Normal appearance, PERRL Pupil Exam: NORMAL ACCOMODATION, PERRL - Respiratory Exam Respiratory Exam: Decreased Breath Sounds, Rales, Rhonchi, Wheezes - Cardiovascular Exam Cardiovascular Exam: REGULAR RHYTHM, +S1, +S2. absent: Murmur - Neurological Exam Neurological Exam: Alert, Awake, CN II-XII Intact, Normal Gait, Oriented x3 Assessment and Plan (1) Syncope and collapse Status: Suspected (2) Chr obstructive pulmonary disease w/ acute lower respiratory infxn Status: Acute (3) Diabetes mellitus, insulin dependent (IDDM), uncontrolled Status: Chronic (4) Bipolar disorder Status: Chronic (5) HTN (hypertension) Status: Chronic
[2016-08-30] MEDS: Albuterol-Ipratrop 3 mg / 0.5 (3 ml) UD INH SCH ×4 (07:30→19:55)
[2016-08-30] MEDS: (Novolog) Insulin Aspart, Recombinant 100 u/ml 10 ml vial SC SCH ×4 (09:15→21:25)
[2016-08-30] MEDS: Enoxaparin 40 mg Syringe SC SCH (11:00)
[2016-08-30] MEDS: Pantoprazole 40 mg Susp UD PO SCH (11:01)
[2016-08-30] MEDS: guaiFENesin 200 mg/10 ml Syrup UD PO SCH ×4 (11:01→22:12)
--- NOTE | 2016-08-30 11:53 | CP.PCM.CON ---
History of Present Illness - History of Present Illness History of Present Illness: INFECTIOUS DISEASE CONSULT; HPI; 10-year-old female with history of COPD, CHF, hypertension, CVA disorder, as sleep apnea syndrome, morbid obesity with history of depression and anxiety problems was admitted [facility] on because of syncopal episode. Patient also complaining of increased congestion of LUNGS with thick , tenacious secretions difficult to expectorate. Patient has a trach and has multiple bronchopulmonary infections with multidrug resistant Proteus mirabilis, Morganella morganii. Recently treated with IV antibiotics during her recent hospitalization of June 2016 FOR BILATERAL PNEUMONIA.. Infectious disease consultation requested by PMD for evaluation of IV antibiotics because of [id number] Proteus mirabilis found in the sputum off 08/26/16. CHEST X-RAY 08/29/16 SHOWS TRACH TUBE IN GOOD POSITION. mILD INCREASE IN BY BASILAR BRONCHOVASCULAR MARKINGS AND ATELECTASIS ? LEFT LOWER LOBE INFILTRATE CANNOT BE RULED OUT. PATIENT PRESENTLY ON iv aVELOX 400 MG ONCE A DAY DAILY PER pmd. PMH: Anxiety, Asthma, Bipolar Disorder, Bronchitis, CHF, COPD (ASTHMA, EMPHYSEMA ), Depression, HTN, Pneumonia, Seizures, Sleep Apnea Surgical History: Appendectomy, Cholecystectomy Allergy; ceftriaxone but patient has tolerated IV Zosyn, IV Azactam, IV Merrem in her past admission of 05/21/16. aspirin, ibuprofen, iodine, and félix. FAMILY HISTORY; NONCONTRIBUTORY. Review of Systems - Review of Systems Systems not reviewed;Unavailable: Respiratory Distress - Constitutional Constitutional: Fatigue, Malaise - EENT Nose/Mouth/Throat: Hoarsness - Cardiovascular Cardiovascular: Dyspnea, Pedal Edema - Respiratory Respiratory: Cough, Chest Congestion, Excessive Mucous Production, Change in Mucous Color. absent: Hemoptysis - Gastrointestinal Gastrointestinal: absent: Diarrhea, Nausea, Vomiting - Neurological Neurological: absent: Headaches - Hematologic/Lymphatic Hematologic: As Per HPI Past Patient History - Infectious Disease Hx of Infectious Diseases: None - Tetanus Immunizations Tetanus Immunization: Unknown - Past Medical History & Family History Past Medical History?: Yes - Past Social History Smoking Status: Never Smoked - CARDIAC Hx Cardiac Disorders: Yes Hx Congestive Heart Failure: Yes Hx Hypertension: Yes - PULMONARY Hx Respiratory Disorders: Yes Hx Asthma: Yes Hx Bronchitis: Yes Hx Chronic Obstructive Pulmonary Disease (COPD): Yes Hx Emphysema: Yes Hx Pneumonia: Yes Hx Sleep Apnea: Yes Other/Comment: with tracheostomy - NEUROLOGICAL Hx Neurological Disorder: Yes Hx Dizziness: Yes Hx Seizures: Yes Hx Syncope: Yes - HEENT Hx HEENT Problems: Yes Hx Cataracts: Yes - RENAL Hx Chronic Kidney Disease: No - ENDOCRINE/METABOLIC Hx Hypothyroidism: No - HEMATOLOGICAL/ONCOLOGICAL Hx Blood Disorders: No - INTEGUMENTARY Hx Dermatological Problems: No - MUSCULOSKELETAL/RHEUMATOLOGICAL Hx Falls: No - GASTROINTESTINAL Hx Gastrointestinal Disorders: Yes Other/Comment: cholecystectomy - GENITOURINARY/GYNECOLOGICAL Hx Sexually Transmitted Disorders: No - PSYCHIATRIC Hx Substance Use: No - SURGICAL HISTORY Hx Surgeries: Yes Hx Appendectomy: Yes Hx Cholecystectomy: Yes - ANESTHESIA Hx Anesthesia: Yes Hx Anesthesia Reactions: No Hx Malignant Hyperthermia: No Has any member of the family had a problem w/ anesthesia?: No Meds Allergies/Adverse Reactions: Allergies Allergy/AdvReac Type Severity Reaction Status Date / Time aspirin Allergy ANAPHYLAXIS Verified 07/24/16 22:31 ceftriaxone sodium Allergy ANAPHYLAXIS Verified 07/24/16 22:31 [From Rocephin] ibuprofen [From Motrin] Allergy ANAPHYLAXIS Verified 07/24/16 22:31 iodine Allergy ANAPHYLAXIS Verified 07/24/16 22:31 raspberry Allergy ANAPHYLAXIS Verified 07/24/16 22:31 - Medications Medications: Current Medications Albuterol/Ipratropium (Duoneb 3 Mg/0.5 Mg (3 Ml) Ud) 3 ml INH RQID [facility] Last Admin: 08/30/16 07:30 Dose: 3 ml Benzonatate (Tessalon Perles) 100 mg PO TID [facility] Last Admin: 08/30/16 11:01 Dose: 100 mg Enoxaparin Sodium (Lovenox) 40 mg SC DAILY [facility] Last Admin: 08/30/16 11:00 Dose: 40 mg Gabapentin (Neurontin) 800 mg PO TID [facility] Last Admin: 08/30/16 11:00 Dose: 800 mg Guaifenesin (Robitussin) 200 mg PO QID [facility] Last Admin: 08/30/16 11:01 Dose: 200 mg Moxifloxacin HCl (Avelox Iv 400mg/250ml Ns) 400 mg in 250 mls @ 167 mls/hr IVPB Q24H [facility] Last Admin: 08/29/16 21:37 Dose: 167 mls/hr Insulin Aspart (Novolog) 0 unit SC ACHS [facility] PRN Reason: Protocol Last Admin: 08/29/16 21:32 Dose: Not Given Insulin Glargine (Lantus) 30 unit SC [facility] Last Admin: 08/29/16 21:40 Dose: 30 units Lamotrigine (Lamictal) 100 mg PO Q12H [facility] Last Admin: 08/30/16 11:00 Dose: 100 mg Lorazepam (Ativan) 2 mg PO TID PRN PRN Reason: Anxiety Last Admin: 08/30/16 11:00 Dose: 2 mg Montelukast Sodium (Singulair) 10 mg PO [facility] Last Admin: 08/29/16 21:41 Dose: 10 mg Pantoprazole Sodium (Protonix Susp) 40 mg PO DAILY [facility] Last Admin: 08/30/16 11:01 Dose: 40 mg Quetiapine Fumarate (Seroquel) 400 mg PO Q12H [facility] Last Admin: 08/30/16 01:49 Dose: 400 mg Sertraline HCl (Zoloft) 100 mg PO [facility] Last Admin: 08/29/16 21:41 Dose: 100 mg Trazodone HCl (Desyrel) 150 mg PO [facility] Last Admin: 08/29/16 21:39 Dose: 150 mg Physical Exam - Constitutional Appears: No Acute Distress - Head Exam Head Exam: NORMAL INSPECTION - Eye Exam Eye Exam: EOMI, PERRL - ENT Exam ENT Exam: Mucous Membranes Moist, Normal Oropharynx - Neck Exam Neck exam: Positive for: Normal Inspection - Respiratory Exam Respiratory Exam: Prolonged Expiratory Phase, Rhonchi, Wheezes - Cardiovascular Exam Cardiovascular Exam: REGULAR RHYTHM, +S1, +S2 - GI/Abdominal Exam GI & Abdominal Exam: Normal Bowel Sounds, Soft. absent: Distended - Extremities Exam Extremities exam: Positive for: pedal edema, pedal pulses present. Negative for : calf tenderness - Neurological Exam Neurological exam: Alert, CN II-XII Intact, Oriented x3, Reflexes Normal - Psychiatric Exam Psychiatric exam: Depressed - Skin Skin Exam: Normal Color, Warm Results - Vital Signs Recent Vital Signs: Last Vital Signs Temp 98.7 F 08/30/16 10:00 Pulse 93 H 08/30/16 10:43 Resp 13 08/30/16 10:43 BP 128/105 H 08/30/16 10:43 Pulse Ox 96 08/30/16 10:43 - Labs Result Diagrams: 08/28/16 06:28 08/28/16 06:28 Labs: Laboratory Results - last 24 hr 08/26/16 08/29/16 08/29/16 16:15 16:02 21:17 POC Glucose (mg/dL) 231 H 141 H 188 H 08/30/16 07:20 POC Glucose (mg/dL) 186 H - Imaging and Cardiology Chest x-ray Status: Report reviewed by me (SEE REPORTS.) Assessment & Plan (1) Chr obstructive pulmonary disease w/ acute lower respiratory infxn Status: Acute (2) Pneumonia Status: Acute (3) Asthma Status: Acute (4) Morbid obesity Status: Acute (5) Anxiety and depression Status: Chronic (6) Bipolar disorder Status: Chronic (7) Diabetes mellitus Status: Chronic (8) HTN (hypertension) Status: Chronic - Assessment and Plan (Free Text) Plan: START IV MERREM 1GM STAT DOSE FOLLOWED BY 500 MG EVERY 8 HOURLY 08/30/16. PATIENT HAS TOLERATED iv mERREM, aZACTAM, zOSYN IN THE PAST AND DURING HER LAST HOSPITALIZATION. CONTINUE IV AMIKACIN 500 MG ONCE A DAY DAILY X 2 DOSES 08/31,09/01/16 DC IV AVELOX. STRICT CONTACT AND RESPIRATORY PRECAUTIONS ESPECIALLY ON SUCTIONING. FOLLOW-UP RENAL FUNCTIONS CLOSELY. PULMONARY TOILET WILL FOLLOW ALONG WITH YOU WHILE PATIENT IN HOSPITAL.
[2016-08-30] MEDS ORDERED: Meropenem 1 GM in Sodium Chloride 0.9% 100 ML IVPB ONE (11:57)
--- NOTE | 2016-08-30 15:16 | CP.PCM.PN ---
Subjective - Date & Time of Evaluation Date of Evaluation: 08/30/16 Time of Evaluation: 15:11 - Subjective Subjective: Patient seen today in ICU. Still depressed, having visual hallucinations seeign a man watching her in her room at night. Still has off and on suicidal ideation and on 1:1 watch. Patient reports her family is not visiting her in the hospital. MSE- obese female, seen in ICU. speech is spontanoues, affect is reactive. Mood is depressed. TP- conherent TC- has off and on si, no hi, has visual hallucinations seeing a man watching her and getting paranoid.Attention and Memory limited. Insight and Judgment limited. Impulse control fair. Objective - Vital Signs/Intake and Output Vital Signs (last 24 hours): Temp Pulse Resp BP Pulse Ox 98.7 F 93 H 13 128/105 H 96 08/30/16 10:00 08/30/16 10:43 08/30/16 10:43 08/30/16 10:43 08/30/16 10:43 Intake and Output: 08/30/16 08/30/16 06:59 18:59 Intake Total 600 Output Total 550 Balance 50 - Medications Medications: Current Medications Albuterol/Ipratropium (Duoneb 3 Mg/0.5 Mg (3 Ml) Ud) 3 ml INH RQID [facility] Last Admin: 08/30/16 07:30 Dose: 3 ml Benzonatate (Tessalon Perles) 100 mg PO TID [facility] Last Admin: 08/30/16 11:01 Dose: 100 mg Enoxaparin Sodium (Lovenox) 40 mg SC DAILY [facility] Last Admin: 08/30/16 11:00 Dose: 40 mg Gabapentin (Neurontin) 800 mg PO TID [facility] Last Admin: 08/30/16 11:00 Dose: 800 mg Guaifenesin (Robitussin) 200 mg PO QID [facility] Last Admin: 08/30/16 11:01 Dose: 200 mg Moxifloxacin HCl (Avelox Iv 400mg/250ml Ns) 400 mg in 250 mls @ 167 mls/hr IVPB Q24H [facility] Last Admin: 08/29/16 21:37 Dose: 167 mls/hr Insulin Aspart (Novolog) 0 unit SC ACHS [facility] PRN Reason: Protocol Last Admin: 08/29/16 21:32 Dose: Not Given Insulin Glargine (Lantus) 30 unit SC [facility] Last Admin: 08/29/16 21:40 Dose: 30 units Lamotrigine (Lamictal) 100 mg PO Q12H [facility] Last Admin: 08/30/16 11:00 Dose: 100 mg Lorazepam (Ativan) 2 mg PO TID PRN PRN Reason: Anxiety Last Admin: 08/30/16 11:00 Dose: 2 mg Montelukast Sodium (Singulair) 10 mg PO [facility] Last Admin: 08/29/16 21:41 Dose: 10 mg Pantoprazole Sodium (Protonix Susp) 40 mg PO DAILY [facility] Last Admin: 08/30/16 11:01 Dose: 40 mg Quetiapine Fumarate (Seroquel) 400 mg PO Q12H [facility] Last Admin: 08/30/16 01:49 Dose: 400 mg Sertraline HCl (Zoloft) 100 mg PO [facility] Last Admin: 08/29/16 21:41 Dose: 100 mg Trazodone HCl (Desyrel) 150 mg PO [facility] Last Admin: 08/29/16 21:39 Dose: 150 mg - Labs Labs: 08/28/16 06:28 08/28/16 06:28 PT 11.4 SECONDS (9.7-12.2) 08/25/16 18:51 INR 1.0 08/25/16 18:51 APTT 24 SECONDS (21-34) 08/25/16 18:51 - Constitutional Appears: No Acute Distress, Chronically Ill - Head Exam Head Exam: NORMOCEPHALIC - Eye Exam Eye Exam: Normal appearance - Neck Exam Neck Exam: Normal Inspection - Respiratory Exam Additional comments: s/p trach, no dyspnea - Cardiovascular Exam Additional comments: no chest pain - GI/Abdominal Exam Additional comments: no abdominal pain - Exam Additional comments: no dysuria - Extremities Exam Extremities Exam: Full ROM - Neurological Exam Neurological Exam: Awake, Oriented x3 - Psychiatric Exam Psychiatric exam: Anxious, Depressed, Suicidal Ideation - Skin Skin Exam: Normal Color Assessment and Plan - Assessment and Plan (Free Text) Assessment: Schizoaffective disorder- bipolar type S/p trach, hx of respiratory failure, Obesity, DM Asthma Plan: Continue 1:1 watch. Continue present meds and tx plan.
[2016-08-30] MEDS: Oxycodone/Acetaminophen 5/325 mg Tab PO PRN (18:15)
[2016-08-30] MEDS: Moxifloxacin IV 400mg/250ml NS 400 MG/250 ML BAG IVPB SCH (20:50)
[2016-08-30] MEDS: (Lantus) Insulin Glargine, Recombinant SC SCH (22:03)
--- NOTE | 2016-08-30 22:54 | CP.PCM.PN ---
Subjective - Date & Time of Evaluation Date of Evaluation: 08/30/16 Time of Evaluation: 20:35 - Subjective Subjective: Pt seen and examined, pt is on antibiotics as her sputum culture positive for mutidrug resistant proteus mirabalis Objective - Vital Signs/Intake and Output Vital Signs (last 24 hours): Temp Pulse Resp BP Pulse Ox 99.8 F H 89 23 113/73 91 L 08/30/16 21:00 08/30/16 22:43 08/30/16 22:43 08/30/16 22:43 08/30/16 21:43 Intake and Output: 08/30/16 08/31/16 18:59 06:59 Intake Total 600 Output Total 550 Balance 50 - Medications Medications: Current Medications Albuterol/Ipratropium (Duoneb 3 Mg/0.5 Mg (3 Ml) Ud) 3 ml INH RQID [facility] Last Admin: 08/30/16 19:55 Dose: 3 ml Benzonatate (Tessalon Perles) 100 mg PO TID [facility] Last Admin: 08/30/16 19:21 Dose: 100 mg Enoxaparin Sodium (Lovenox) 40 mg SC DAILY [facility] Last Admin: 08/30/16 11:00 Dose: 40 mg Gabapentin (Neurontin) 800 mg PO TID [facility] Last Admin: 08/30/16 17:33 Dose: 800 mg Guaifenesin (Robitussin) 200 mg PO QID [facility] Last Admin: 08/30/16 22:12 Dose: 200 mg Moxifloxacin HCl (Avelox Iv 400mg/250ml Ns) 400 mg in 250 mls @ 167 mls/hr IVPB Q24H [facility] Last Admin: 08/30/16 20:50 Dose: 167 mls/hr Insulin Aspart (Novolog) 0 unit SC ACHS [facility] PRN Reason: Protocol Last Admin: 08/30/16 21:25 Dose: Not Given Insulin Glargine (Lantus) 30 unit SC HS [facility] Last Admin: 08/30/16 22:03 Dose: 30 units Lamotrigine (Lamictal) 100 mg PO Q12H [facility] Last Admin: 08/30/16 22:05 Dose: 100 mg Lorazepam (Ativan) 2 mg PO TID PRN PRN Reason: Anxiety Last Admin: 08/30/16 11:00 Dose: 2 mg Montelukast Sodium (Singulair) 10 mg PO [facility] Last Admin: 08/30/16 22:05 Dose: 10 mg Oxycodone/Acetaminophen (Percocet 5/325 Mg Tab) 2 tab PO Q6H PRN PRN Reason: Pain, severe (8-10) Stop: 09/02/16 17:41 Last Admin: 08/30/16 18:15 Dose: 2 tab Pantoprazole Sodium (Protonix Susp) 40 mg PO DAILY [facility] Last Admin: 08/30/16 11:01 Dose: 40 mg Quetiapine Fumarate (Seroquel) 400 mg PO Q12H [facility] Last Admin: 08/30/16 14:00 Dose: 400 mg Sertraline HCl (Zoloft) 100 mg PO [facility] Last Admin: 08/30/16 22:05 Dose: 100 mg Trazodone HCl (Desyrel) 150 mg PO [facility] Last Admin: 08/30/16 22:05 Dose: 150 mg - Labs Labs: 08/28/16 06:28 08/28/16 06:28 PT 11.4 SECONDS (9.7-12.2) 08/25/16 18:51 INR 1.0 08/25/16 18:51 APTT 24 SECONDS (21-34) 08/25/16 18:51 - Constitutional Appears: No Acute Distress - Head Exam Head Exam: ATRAUMATIC, NORMAL INSPECTION, NORMOCEPHALIC - Eye Exam Eye Exam: EOMI, Normal appearance, PERRL Pupil Exam: NORMAL ACCOMODATION, PERRL - ENT Exam ENT Exam: Mucous Membranes Moist - Respiratory Exam Respiratory Exam: Clear to Ausculation Bilateral, NORMAL BREATHING PATTERN - Cardiovascular Exam Cardiovascular Exam: REGULAR RHYTHM, +S1, +S2 - GI/Abdominal Exam GI & Abdominal Exam: Soft, Normal Bowel Sounds - Rectal Exam Rectal Exam: Deferred Assessment and Plan (1) Syncope and collapse Status: Suspected (2) Chr obstructive pulmonary disease w/ acute lower respiratory infxn Status: Acute (3) Diabetes mellitus, insulin dependent (IDDM), uncontrolled Status: Chronic (4) Bipolar disorder Status: Chronic (5) HTN (hypertension) Status: Chronic
[2016-08-31] MEDS: Meropenem 500 MG in Sodium Chloride 0.9% 100 ML IVPB SCH ×4 (00:21→21:26)
[2016-08-31 07:24] LABS: BASO % 0.6 % (0.0-2.0); EOS # 0.1 K/uL (0.0-0.7); EOS % 1.4 % (0.0-4.0); HEMOGLOBIN 11.7 g/dL (11.0-16.0); LYMPH # 1.2 K/uL (1.0-4.3); LYMPH % 19.3 % (20.0-40.0); MEAN CELL VOLUME 79.8 fL (81.0-99.0); MEAN CORPUSCULAR HEMOGLOBIN 26.1 pg (27.0-31.0); MEAN CORPUSCULAR HGB CONC 32.7 g/dL (33.0-37.0); MEAN PLATELET VOLUME 8.4 fL (7.2-11.7); MONO # 0.6 K/uL (0.0-0.8); MONO % 9.7 % (0.0-10.0); NEUT # 4.3 K/uL (1.8-7.0); NRBC % 0.1 % (0.0-2.0); RBC 4.5 Mil/uL (3.80-5.20); WHITE BLOOD COUNT 6.2 K/uL (4.8-10.8)
[2016-08-31 07:44] LABS: ALBUMIN 3.5 g/dL (3.5-5.0)
[2016-08-31 07:46] LABS: GFR AFRICAN-AMERICAN > 60; GFR NON-AFRICAN AMERICAN > 60
[2016-08-31 07:47] LABS: ALB/GLOB RATIO 0.9 (1.0-2.1); ALT/SGPT 14 U/L (9-52); AST/SGOT 21 U/L (14-36); BILIRUBIN,DIRECT 0.5 mg/dL (0.0-0.4); BLOOD UREA NITROGEN 8 mg/dL (7-17); CALCIUM 8.8 mg/dl (8.6-10.4)
[2016-08-31] MEDS: Albuterol-Ipratrop 3 mg / 0.5 (3 ml) UD INH SCH (07:49)
[2016-08-31 08:08] LABS: SQUAMOUS EPITHIAL 2 /hpf (0-5); URINE BACTERIA MANY (<OCC); URINE BILIRUBIN NEGATIVE (NEGATIVE); URINE BLOOD NEGATIVE (NEGATIVE); URINE CLARITY Hazy (Clear); URINE COLOR Yellow (YELLOW); URINE GLUCOSE (UA) NORMAL (Normal); URINE LEUKOCYTE ESTERASE 2+ Leu/uL (Negative); URINE NITRATE POSITIVE (NEGATIVE); URINE PROTEIN NEGATIVE (NEGATIVE); URINE UROBILINOGEN NORMAL mg/dL (0.2-1.0)
[2016-08-31] MEDS: Oxycodone/Acetaminophen 5/325 mg Tab PO PRN ×2 (09:39→20:05)
[2016-08-31] MEDS: Pantoprazole 40 mg Susp UD PO SCH (09:39)
[2016-08-31] MEDS: guaiFENesin 200 mg/10 ml Syrup UD PO SCH ×4 (09:39→21:28)
[2016-08-31] MEDS: Enoxaparin 40 mg Syringe SC SCH (09:41)
[2016-08-31] MEDS: (Novolog) Insulin Aspart, Recombinant 100 u/ml 10 ml vial SC SCH ×4 (09:46→22:24)
--- NOTE | 2016-08-31 13:14 | CP.PCM.PN ---
Subjective - Date & Time of Evaluation Date of Evaluation: 08/31/16 Time of Evaluation: 13:14 - Subjective Subjective: CHIEF COMPLAINTS TODAY : afebrile, +ve THICK SECRETIONS TRACH SITE 1:1 WATCH PATIENT'S SUICIDAL.. Case discussed with Dr. Madrid ( psychiatry ) SHREYAS. HEENT : N. Resp : +ve SOB wheezing, cough Cardio : No CP, PND orthopnea GI : No abd. Pain, n/v FRAMER : No headache , focal deficit. Musculoskel : N Ext. : Pedal pulses intact, no edema or calf pain Derm : N Psych : N. PE. Pt. is alert awake in no distress. V.S As noted in the chart Head ,ear nose,throat and eyes : Normal. Neck : Supple with normal carotids. Lungs: BILATERAL RHONCHI AND WHEEZE. Heart : S1 & S2 normal . . No murmur. S4 + Abd : Soft non tender with normal bowel sounds. Neuro : Moves all ext. with no localized deficit. Ext : No edema with intact pulses. Neg. calf tenderness Derm : No rashes or decubitus ulcer. Radiology/Labs . reviewed. Sputum culture positive for Proteus mirabilis -s amikacin (MDR ) Objective - Vital Signs/Intake and Output Vital Signs (last 24 hours): Temp Pulse Resp BP Pulse Ox 99.5 F 84 25 H 130/72 98 08/31/16 00:43 08/31/16 06:42 08/31/16 06:42 08/31/16 06:43 08/31/16 06:42 Intake and Output: 08/31/16 08/31/16 06:59 18:59 Intake Total 490 Balance 490 - Medications Medications: Current Medications Benzonatate (Tessalon Perles) 100 mg PO TID [facility] Last Admin: 08/31/16 13:07 Dose: 100 mg Enoxaparin Sodium (Lovenox) 40 mg SC DAILY [facility] Last Admin: 08/31/16 09:41 Dose: 40 mg Gabapentin (Neurontin) 800 mg PO TID [facility] Last Admin: 08/31/16 13:07 Dose: 800 mg Guaifenesin (Robitussin) 200 mg PO QID [facility] Last Admin: 08/31/16 13:07 Dose: 200 mg Meropenem 500 mg/ Sodium (Chloride) 100 mls @ 100 mls/hr IVPB Q8 [facility] Last Admin: 08/31/16 05:30 Dose: 100 mls/hr Amikacin Sulfate 500 mg/ (Sodium Chloride) 252 mls @ 250 mls/hr IVPB Q24H [facility] Stop: 09/02/16 00:44 Insulin Aspart (Novolog) 0 unit SC ACHS [facility] PRN Reason: Protocol Last Admin: 08/31/16 13:07 Dose: 1 unit Insulin Glargine (Lantus) [address] [facility] Last Admin: 08/30/16 22:03 Dose: 30 units Lamotrigine (Lamictal) 100 mg PO Q12H [facility] Last Admin: 08/31/16 09:45 Dose: 100 mg Lorazepam (Ativan) 2 mg PO TID PRN PRN Reason: Anxiety Last Admin: 08/31/16 00:14 Dose: 2 mg Montelukast Sodium (Singulair) [address] [facility] Last Admin: 08/30/16 22:05 Dose: 10 mg Oxycodone/Acetaminophen (Percocet 5/325 Mg Tab) 2 tab PO Q6H PRN PRN Reason: Pain, severe (8-10) Stop: 09/02/16 17:41 Last Admin: 08/31/16 09:39 Dose: 2 tab Pantoprazole Sodium (Protonix Susp) 40 mg PO DAILY [facility] Last Admin: 08/31/16 09:39 Dose: 40 mg Quetiapine Fumarate (Seroquel) 400 mg PO Q12H [facility] Last Admin: 08/31/16 13:07 Dose: 400 mg Sertraline HCl (Zoloft) [address] [facility] Last Admin: 08/30/16 22:05 Dose: 100 mg Trazodone HCl (Desyrel) [address] [facility] Last Admin: 08/30/16 22:05 Dose: 150 mg - Labs Labs: 08/31/16 07:11 08/31/16 07:11 PT 11.4 SECONDS (9.7-12.2) 08/25/16 18:51 INR 1.0 08/25/16 18:51 APTT 24 SECONDS (21-34) 08/25/16 18:51 Assessment and Plan (1) Chr obstructive pulmonary disease w/ acute lower respiratory infxn Status: Acute (2) Pneumonia Assessment & Plan: patient on contact precautions. CONTINUE IV MERREM 500 MG EVERY 8 HOURLY. PATIENT ON IV AMIKACIN 500 MG ONCE DAILY X 2 DOSES. 08/31. 09/01/16 CHECK WITH MICRO-FOR SENSITIVITY OF pROTEUS MIRABILIS IN SPUTUM WITH MEROPENEM, COLISTIN. Status: Acute (3) Asthma Status: Acute (4) Morbid obesity Status: Acute (5) Anxiety and depression Status: Chronic (6) Bipolar disorder Status: Chronic (7) Diabetes mellitus Status: Chronic (8) HTN (hypertension) Status: Chronic - Assessment and Plan (Free Text) Plan: ON IV MERREM 1GM STAT DOSE FOLLOWED BY 500 MG EVERY 8 HOURLY 08/30/16. PATIENT HAS TOLERATED iv MERREM, AZACTAM, zOSYN IN THE PAST AND DURING HER LAST HOSPITALIZATION. CONTINUE IV AMIKACIN 500 MG ONCE A DAY DAILY X 2 DOSES 08/31,09/01/16 STRICT CONTACT AND RESPIRATORY PRECAUTIONS ESPECIALLY ON SUCTIONING. FOLLOW-UP RENAL FUNCTIONS CLOSELY. PULMONARY TOILET CASE DISCUSSED WITH dR. Madrid-PSYCHIATRY. pATIENT NOT A CANDIDATE FOR PSYCH FLOOR PATIENT HAS TRACHEOSTOMY. PATIENT MAY BE TRANSFERRED TO [facility] IF FEASIBLE. wE'LL DISCUSS WITH PMD.
--- NOTE | 2016-08-31 13:22 | CP.PCM.PN ---
Subjective - Date & Time of Evaluation Date of Evaluation: 08/31/16 Time of Evaluation: 08:35 - Subjective Subjective: PT SEEN & EXAMINED AT BEDSIDE, REMAINS DEPRESSED , afebrile,+ve THICK SECRETIONS TRACH SITE 1:1 WATCH PATIENT'S SUICIDAL PER psychiatry Objective - Vital Signs/Intake and Output Vital Signs (last 24 hours): Temp Pulse Resp BP Pulse Ox 99.5 F 84 25 H 130/72 98 08/31/16 00:43 08/31/16 06:42 08/31/16 06:42 08/31/16 06:43 08/31/16 06:42 Intake and Output: 08/31/16 08/31/16 06:59 18:59 Intake Total 490 Balance 490 - Medications Medications: Current Medications Benzonatate (Tessalon Perles) 100 mg PO TID [facility] Last Admin: 08/31/16 13:07 Dose: 100 mg Enoxaparin Sodium (Lovenox) 40 mg SC DAILY [facility] Last Admin: 08/31/16 09:41 Dose: 40 mg Gabapentin (Neurontin) 800 mg PO TID [facility] Last Admin: 08/31/16 13:07 Dose: 800 mg Guaifenesin (Robitussin) 200 mg PO QID [facility] Last Admin: 08/31/16 13:07 Dose: 200 mg Meropenem 500 mg/ Sodium (Chloride) 100 mls @ 100 mls/hr IVPB Q8 [facility] Last Admin: 08/31/16 05:30 Dose: 100 mls/hr Amikacin Sulfate 500 mg/ (Sodium Chloride) 252 mls @ 250 mls/hr IVPB Q24H [facility] Stop: 09/02/16 00:44 Insulin Aspart (Novolog) 0 unit SC ACHS [facility] PRN Reason: Protocol Last Admin: 08/31/16 13:07 Dose: 1 unit Insulin Glargine (Lantus) 30 unit SC [facility] Last Admin: 08/30/16 22:03 Dose: 30 units Lamotrigine (Lamictal) 100 mg PO Q12H [facility] Last Admin: 08/31/16 09:45 Dose: 100 mg Lorazepam (Ativan) 2 mg PO TID PRN PRN Reason: Anxiety Last Admin: 08/31/16 00:14 Dose: 2 mg Montelukast Sodium (Singulair) 10 mg PO [facility] Last Admin: 08/30/16 22:05 Dose: 10 mg Oxycodone/Acetaminophen (Percocet 5/325 Mg Tab) 2 tab PO Q6H PRN PRN Reason: Pain, severe (8-10) Stop: 09/02/16 17:41 Last Admin: 08/31/16 09:39 Dose: 2 tab Pantoprazole Sodium (Protonix Susp) 40 mg PO DAILY [facility] Last Admin: 08/31/16 09:39 Dose: 40 mg Quetiapine Fumarate (Seroquel) 400 mg PO Q12H [facility] Last Admin: 08/31/16 13:07 Dose: 400 mg Sertraline HCl (Zoloft) 100 mg PO HS [facility] Last Admin: 08/30/16 22:05 Dose: 100 mg Trazodone HCl (Desyrel) 150 mg PO HS [facility] Last Admin: 08/30/16 22:05 Dose: 150 mg - Labs Labs: 08/31/16 07:11 08/31/16 07:11 PT 11.4 SECONDS (9.7-12.2) 08/25/16 18:51 INR 1.0 08/25/16 18:51 APTT 24 SECONDS (21-34) 08/25/16 18:51 Assessment and Plan (1) Syncope and collapse Status: Suspected (2) Chr obstructive pulmonary disease w/ acute lower respiratory infxn Status: Acute (3) Diabetes mellitus, insulin dependent (IDDM), uncontrolled Status: Chronic (4) Bipolar disorder Status: Chronic (5) HTN (hypertension) Status: Chronic
--- NOTE | 2016-08-31 18:46 | CP.PCM.PN ---
Subjective - Date & Time of Evaluation Date of Evaluation: 08/31/16 Time of Evaluation: 18:41 - Subjective Subjective: Patient seen today and still on 1:1 watch. Still depressed and having off and on suicidal ideation. Patient is not a candidate for 5E due to her multiple medical No issues and has a trach. No hallucinations. MSE- obese female, seen in in ICU#5, affect is reactive. Mood is still depressed , speech is halting due to the trach. TP- coherent TC- no si or hi, no hallucinations. Attention and memory fair. Insight and Judgment fair. Impulse control fair. Objective - Vital Signs/Intake and Output Vital Signs (last 24 hours): Temp Pulse Resp BP Pulse Ox 98.4 F 67 18 121/74 99 08/31/16 17:00 08/31/16 17:43 08/31/16 17:43 08/31/16 17:43 08/31/16 17:43 Intake and Output: 08/31/16 08/31/16 06:59 18:59 Intake Total 490 Balance 490 - Medications Medications: Current Medications Benzonatate (Tessalon Perles) 100 mg PO TID [facility] Last Admin: 08/31/16 17:39 Dose: 100 mg Enoxaparin Sodium (Lovenox) 40 mg SC DAILY [facility] Last Admin: 08/31/16 09:41 Dose: 40 mg Gabapentin (Neurontin) 800 mg PO TID [facility] Last Admin: 08/31/16 17:39 Dose: 800 mg Guaifenesin (Robitussin) 200 mg PO QID [facility] Last Admin: 08/31/16 17:39 Dose: 200 mg Meropenem 500 mg/ Sodium (Chloride) 100 mls @ 100 mls/hr IVPB Q8 [facility] Last Admin: 08/31/16 13:28 Dose: 100 mls/hr Amikacin Sulfate 500 mg/ (Sodium Chloride) 252 mls @ 250 mls/hr IVPB Q24H [facility] Stop: 09/02/16 00:44 Insulin Aspart (Novolog) 0 unit SC ACHS [facility] PRN Reason: Protocol Last Admin: 08/31/16 17:40 Dose: 2 unit Insulin Glargine (Lantus) 30 unit SC HS [facility] Last Admin: 08/30/16 22:03 Dose: 30 units Lamotrigine (Lamictal) 100 mg PO Q12H [facility] Last Admin: 08/31/16 09:45 Dose: 100 mg Lorazepam (Ativan) 2 mg PO TID PRN PRN Reason: Anxiety Last Admin: 08/31/16 00:14 Dose: 2 mg Montelukast Sodium (Singulair) 10 mg PO [facility] Last Admin: 08/30/16 22:05 Dose: 10 mg Oxycodone/Acetaminophen (Percocet 5/325 Mg Tab) 2 tab PO Q6H PRN PRN Reason: Pain, severe (8-10) Stop: 09/02/16 17:41 Last Admin: 08/31/16 09:39 Dose: 2 tab Pantoprazole Sodium (Protonix Susp) 40 mg PO DAILY [facility] Last Admin: 08/31/16 09:39 Dose: 40 mg Quetiapine Fumarate (Seroquel) 400 mg PO Q12H [facility] Last Admin: 08/31/16 13:07 Dose: 400 mg Sertraline HCl (Zoloft) 100 mg PO [facility] Last Admin: 08/30/16 22:05 Dose: 100 mg Trazodone HCl (Desyrel) 150 mg PO [facility] Last Admin: 08/30/16 22:05 Dose: 150 mg - Labs Labs: 08/31/16 07:11 08/31/16 07:11 PT 11.4 SECONDS (9.7-12.2) 08/25/16 18:51 INR 1.0 08/25/16 18:51 APTT 24 SECONDS (21-34) 08/25/16 18:51 - Constitutional Appears: No Acute Distress, Chronically Ill - Head Exam Head Exam: NORMOCEPHALIC - Eye Exam Eye Exam: Normal appearance - ENT Exam ENT Exam: Normal Exam - Neck Exam Additional comments: has a trach - Respiratory Exam Additional comments: no dyspnea - Cardiovascular Exam Additional comments: no chest pain - GI/Abdominal Exam Additional comments: no abdominal pain - Extremities Exam Extremities Exam: Full ROM - Back Exam Additional comments: no back pain - Neurological Exam Neurological Exam: Alert, Awake, Oriented x3 - Psychiatric Exam Psychiatric exam: Anxious, Depressed - Skin Skin Exam: Normal Color Assessment and Plan - Assessment and Plan (Free Text) Assessment: Schizoaffective disorder Respiratory failure, s/p trach sepsis, DM, HTN Plan: Continue 1:1 watch. Continue present psych meds and antibiotics as ordered.
[2016-08-31] MEDS: (Lantus) Insulin Glargine, Recombinant SC SCH (21:27)
[2016-08-31] MEDS: Amikacin Sulfate 500 MG in Sodium Chloride 0.9% 250 ML IVPB SCH (22:55)
[2016-09-01] MEDS: Oxycodone/Acetaminophen 5/325 mg Tab PO PRN ×3 (05:04→22:41)
[2016-09-01] MEDS: Meropenem 500 MG in Sodium Chloride 0.9% 100 ML IVPB SCH ×2 (05:05→14:55)
[2016-09-01] MEDS: Enoxaparin 40 mg Syringe SC SCH (09:18)
[2016-09-01] MEDS: (Novolog) Insulin Aspart, Recombinant 100 u/ml 10 ml vial SC SCH ×4 (09:18→21:34)
[2016-09-01] MEDS: Pantoprazole 40 mg Susp UD PO SCH (09:18)
[2016-09-01] MEDS: guaiFENesin 200 mg/10 ml Syrup UD PO SCH ×4 (09:19→22:33)
--- NOTE | 2016-09-01 13:30 | CP.PCM.PN ---
Subjective - Date & Time of Evaluation Date of Evaluation: 09/01/16 Time of Evaluation: 13:27 - Subjective Subjective: Patient still depressed but has no suicidal ideation or hallucinations. Patient still on1:1 watch and complaining of severe back pain and asking for Morphine 2 mg ivp prn with good results in the past. MSE- obese female still depressed ,O x 3. speech is halting. affect is reactive. TP- coherent- TC no si or hi, no psychosis. Attention and memory limited. Insight and judgment fair. Impulse control fair. Objective - Vital Signs/Intake and Output Vital Signs (last 24 hours): Temp Pulse Resp BP Pulse Ox 98.1 F 78 17 109/76 98 08/31/16 23:41 09/01/16 04:27 09/01/16 04:27 09/01/16 04:27 09/01/16 04:27 Intake and Output: 09/01/16 09/01/16 06:59 18:59 Intake Total 930 Output Total 300 Balance 630 - Medications Medications: Current Medications Benzonatate (Tessalon Perles) 100 mg PO TID [facility] Last Admin: 09/01/16 09:17 Dose: 100 mg Enoxaparin Sodium (Lovenox) 40 mg SC DAILY [facility] Last Admin: 09/01/16 09:18 Dose: 40 mg Gabapentin (Neurontin) 800 mg PO TID [facility] Last Admin: 09/01/16 09:18 Dose: 800 mg Guaifenesin (Robitussin) 200 mg PO QID [facility] Last Admin: 09/01/16 09:19 Dose: 200 mg Meropenem 500 mg/ Sodium (Chloride) 100 mls @ 100 mls/hr IVPB Q8 [facility] Last Admin: 09/01/16 05:05 Dose: 100 mls/hr Amikacin Sulfate 500 mg/ (Sodium Chloride) 252 mls @ 250 mls/hr IVPB Q24H [facility] Stop: 09/02/16 00:44 Last Admin: 08/31/16 22:55 Dose: 250 mls/hr Insulin Aspart (Novolog) 0 unit SC ACHS [facility] PRN Reason: Protocol Last Admin: 09/01/16 09:18 Dose: 1 unit Insulin Glargine (Lantus) 30 unit SC [facility] Last Admin: 08/31/16 21:27 Dose: 30 u Lamotrigine (Lamictal) 100 mg PO Q12H [facility] Last Admin: 09/01/16 09:18 Dose: 100 mg Lorazepam (Ativan) 2 mg PO TID PRN PRN Reason: Anxiety Last Admin: 08/31/16 22:53 Dose: 2 mg Montelukast Sodium (Singulair) 10 mg PO [facility] Last Admin: 08/31/16 21:28 Dose: 10 mg Morphine Sulfate (Morphine) 2 mg IVP DAILY PRN PRN Reason: Pain, severe (8-10) Oxycodone/Acetaminophen (Percocet 5/325 Mg Tab) 2 tab PO Q6H PRN PRN Reason: Pain, moderate (4-7) Stop: 09/02/16 17:41 Pantoprazole Sodium (Protonix Susp) 40 mg PO DAILY [facility] Last Admin: 09/01/16 09:18 Dose: 40 mg Quetiapine Fumarate (Seroquel) 400 mg PO Q12H [facility] Last Admin: 09/01/16 00:19 Dose: 400 mg Sertraline HCl (Zoloft) 100 mg PO [facility] Last Admin: 08/31/16 21:28 Dose: 100 mg Trazodone HCl (Desyrel) 150 mg PO [facility] Last Admin: 08/31/16 21:28 Dose: 150 mg - Labs Labs: 08/31/16 07:11 08/31/16 07:11 PT 11.4 SECONDS (9.7-12.2) 08/25/16 18:51 INR 1.0 08/25/16 18:51 APTT 24 SECONDS (21-34) 08/25/16 18:51 - Constitutional Appears: No Acute Distress, Chronically Ill - Head Exam Head Exam: NORMOCEPHALIC - Eye Exam Eye Exam: Normal appearance - ENT Exam ENT Exam: Normal External Ear Exam - Neck Exam Additional comments: s/p trach - Respiratory Exam Additional comments: no dyspnea - Cardiovascular Exam Additional comments: no chest pain - GI/Abdominal Exam Additional comments: eats well - Extremities Exam Extremities Exam: Full ROM - Back Exam Additional comments: has back pain - Psychiatric Exam Psychiatric exam: Anxious, Depressed Assessment and Plan - Assessment and Plan (Free Text) Assessment: Schizoaffective disorder- bipolar type Respiratory failure s/p trach DM, asthma Plan: Continue 1:1 watch and present psych meds. May have Morphine 2 mg ivp daily prn for severe pain. Continue present tx plan.
--- NOTE | 2016-09-01 22:27 | CP.PCM.PN ---
Subjective - Date & Time of Evaluation Date of Evaluation: 09/01/16 Time of Evaluation: 22:27 - Subjective Subjective: CHIEF COMPLAINTS TODAY : afebrile, C/O THICK SECRETIONS ?TRACH CHANGE 1:1 WATCH PATIENT'S SUICIDAL.. ROS. HEENT : N. Resp : +ve SOB wheezing, cough Cardio : No CP, PND orthopnea GI : No abd. Pain, n/v OCCUPATIONAL THER : No headache , focal deficit. Musculoskel : N Ext. : Pedal pulses intact, no edema or calf pain Derm : N Psych : N. PE. Pt. is alert awake in no distress. V.S As noted in the chart Head ,ear nose,throat and eyes : Normal. Neck : Supple with normal carotids. Lungs: BILATERAL RHONCHI AND WHEEZE. Heart : S1 & S2 normal . . No murmur. S4 + Abd : Soft non tender with normal bowel sounds. Neuro : Moves all ext. with no localized deficit. Ext : No edema with intact pulses. Neg. calf tenderness Derm : No rashes or decubitus ulcer. Radiology/Labs . reviewed. Sputum culture positive for Proteus mirabilis -s amikacin (MDR ) RESISTANT TO MEROPENEM . Objective - Vital Signs/Intake and Output Vital Signs (last 24 hours): Temp Pulse Resp BP Pulse Ox 98.7 F 78 17 122/50 L 99 09/01/16 20:00 09/01/16 20:00 09/01/16 20:00 09/01/16 10:35 09/01/16 20:00 Intake and Output: 09/01/16 09/02/16 18:59 06:59 Intake Total 1100 Balance 1100 - Medications Medications: Current Medications Benzonatate (Tessalon Perles) 100 mg PO TID [facility] Last Admin: 09/01/16 17:30 Dose: 100 mg Enoxaparin Sodium (Lovenox) 40 mg SC DAILY [facility] Last Admin: 09/01/16 09:18 Dose: 40 mg Gabapentin (Neurontin) 800 mg PO TID [facility] Last Admin: 09/01/16 17:28 Dose: 800 mg Guaifenesin (Robitussin) 200 mg PO QID [facility] Last Admin: 09/01/16 17:23 Dose: 200 mg Amikacin Sulfate 500 mg/ (Sodium Chloride) 252 mls @ 250 mls/hr IVPB Q24H [facility] Stop: 09/02/16 00:44 Last Admin: 08/31/16 22:55 Dose: 250 mls/hr Insulin Aspart (Novolog) 0 unit SC [facility] PRN Reason: Protocol Last Admin: 09/01/16 21:34 Dose: Not Given Insulin Glargine (Lantus) 30 unit SC [facility] Last Admin: 08/31/16 21:27 Dose: 30 u Lamotrigine (Lamictal) 100 mg PO Q12H [facility] Last Admin: 09/01/16 09:18 Dose: 100 mg Lorazepam (Ativan) 2 mg PO TID PRN PRN Reason: Anxiety Last Admin: 08/31/16 22:53 Dose: 2 mg Montelukast Sodium (Singulair) 10 mg PO [facility] Last Admin: 08/31/16 21:28 Dose: 10 mg Morphine Sulfate (Morphine) 2 mg IVP Q12 PRN PRN Reason: Pain, severe (8-10) Oxycodone/Acetaminophen (Percocet 5/325 Mg Tab) 2 tab PO Q6H PRN PRN Reason: Pain, moderate (4-7) Stop: 09/02/16 17:41 Pantoprazole Sodium (Protonix Susp) 40 mg PO DAILY [facility] Last Admin: 09/01/16 09:18 Dose: 40 mg Quetiapine Fumarate (Seroquel) 400 mg PO Q12H [facility] Last Admin: 09/01/16 14:55 Dose: 400 mg Sertraline HCl (Zoloft) 100 mg PO [facility] Last Admin: 08/31/16 21:28 Dose: 100 mg Trazodone HCl (Desyrel) 150 mg PO [facility] Last Admin: 08/31/16 21:28 Dose: 150 mg - Labs Labs: 08/31/16 07:11 08/31/16 07:11 PT 11.4 SECONDS (9.7-12.2) 08/25/16 18:51 INR 1.0 08/25/16 18:51 APTT 24 SECONDS (21-34) 08/25/16 18:51 Assessment and Plan (1) Chr obstructive pulmonary disease w/ acute lower respiratory infxn Status: Acute (2) Pneumonia Assessment & Plan: patient on contact precautions. DC IV MERREM 500 MG EVERY 8 HOURLY. PATIENT ON IV AMIKACIN 500 MG ONCE DAILY X 2 DOSES. 7/6. 09/01/16 CHECK WITH MICRO-FOR SENSITIVITY OF pROTEUS MIRABILIS IN SPUTUM WITH COLISTIN.- P. CASE DISCUSSED WITH DIRECTOR [employer] MR MASOOD/MS DÍAZ. ENT CONSULT FOR CHANGE OF TRACHEOSTOMY. Status: Acute (3) Asthma Status: Acute (4) Morbid obesity Status: Acute (5) Anxiety and depression Status: Chronic (6) Bipolar disorder Status: Chronic (7) Diabetes mellitus Status: Chronic (8) HTN (hypertension) Status: Chronic
[2016-09-01] MEDS: (Lantus) Insulin Glargine, Recombinant SC SCH (22:33)
[2016-09-01] MEDS: Amikacin Sulfate 500 MG in Sodium Chloride 0.9% 250 ML IVPB SCH (22:44)
--- NOTE | 2016-09-02 07:06 | CP.PCM.PN ---
Subjective - Date & Time of Evaluation Date of Evaluation: 09/02/16 Time of Evaluation: 09:00 - Subjective Subjective: Pt seen & examined, is feeling better, afebrile, she is clinically unchanged, on medical management, tracheobronchitis with mutidrug resistant proteus Objective - Vital Signs/Intake and Output Vital Signs (last 24 hours): Temp Pulse Resp BP Pulse Ox 98.7 F 79 19 106/65 95 09/02/16 04:00 09/02/16 04:00 09/02/16 02:00 09/01/16 23:24 09/02/16 04:00 Intake and Output: 09/02/16 09/02/16 06:59 18:59 Intake Total 600 Output Total 300 Balance 300 - Medications Medications: Current Medications Benzonatate (Tessalon Perles) 100 mg PO TID [facility] Last Admin: 09/01/16 17:30 Dose: 100 mg Enoxaparin Sodium (Lovenox) 40 mg SC DAILY [facility] Last Admin: 09/01/16 09:18 Dose: 40 mg Gabapentin (Neurontin) 800 mg PO TID [facility] Last Admin: 09/01/16 17:28 Dose: 800 mg Guaifenesin (Robitussin) 200 mg PO QID [facility] Last Admin: 09/01/16 22:33 Dose: 200 mg Insulin Aspart (Novolog) 0 unit SC [facility] PRN Reason: Protocol Last Admin: 09/01/16 21:34 Dose: Not Given Insulin Glargine (Lantus) 30 unit SC [facility] Last Admin: 09/01/16 22:33 Dose: 30 u Lamotrigine (Lamictal) 100 mg PO Q12H [facility] Last Admin: 09/01/16 22:32 Dose: 100 mg Lorazepam (Ativan) 2 mg PO TID PRN PRN Reason: Anxiety Last Admin: 08/31/16 22:53 Dose: 2 mg Montelukast Sodium (Singulair) 10 mg PO [facility] Last Admin: 09/01/16 22:32 Dose: 10 mg Morphine Sulfate (Morphine) 2 mg IVP Q12 PRN PRN Reason: Pain, severe (8-10) Oxycodone/Acetaminophen (Percocet 5/325 Mg Tab) 2 tab PO Q6H PRN PRN Reason: Pain, moderate (4-7) Stop: 09/02/16 17:41 Last Admin: 09/01/16 22:41 Dose: 2 tab Pantoprazole Sodium (Protonix Susp) 40 mg PO DAILY [facility] Last Admin: 09/01/16 09:18 Dose: 40 mg Quetiapine Fumarate (Seroquel) 400 mg PO Q12H [facility] Last Admin: 09/02/16 01:07 Dose: 400 mg Sertraline HCl (Zoloft) 100 mg PO HS [facility] Last Admin: 09/01/16 22:33 Dose: 100 mg Trazodone HCl (Desyrel) 150 mg PO HS [facility] Last Admin: 09/01/16 22:32 Dose: 150 mg - Labs Labs: 08/31/16 07:11 08/31/16 07:11 PT 11.4 SECONDS (9.7-12.2) 08/25/16 18:51 INR 1.0 08/25/16 18:51 APTT 24 SECONDS (21-34) 08/25/16 18:51 - Constitutional Appears: No Acute Distress - Head Exam Head Exam: ATRAUMATIC, NORMAL INSPECTION, NORMOCEPHALIC - Eye Exam Eye Exam: EOMI, Normal appearance, PERRL Pupil Exam: NORMAL ACCOMODATION, PERRL - ENT Exam ENT Exam: Mucous Membranes Moist, Normal Exam - Respiratory Exam Respiratory Exam: Decreased Breath Sounds, Rhonchi, Wheezes, NORMAL BREATHING PATTERN - Cardiovascular Exam Cardiovascular Exam: REGULAR RHYTHM, +S1, +S2. absent: Murmur Assessment and Plan (1) Syncope and collapse Status: Suspected (2) Chr obstructive pulmonary disease w/ acute lower respiratory infxn Status: Acute (3) Diabetes mellitus, insulin dependent (IDDM), uncontrolled Status: Chronic (4) Bipolar disorder Status: Chronic (5) HTN (hypertension) Status: Chronic
--- NOTE | 2016-09-02 07:06 | CP.PCM.PN ---
Subjective - Date & Time of Evaluation Date of Evaluation: 09/01/16 Time of Evaluation: 20:00 - Subjective Subjective: pt is also seen by Id on antibiotics, less coughing and less congested then before Objective - Vital Signs/Intake and Output Vital Signs (last 24 hours): Temp Pulse Resp BP Pulse Ox 98.7 F 79 19 106/65 95 09/02/16 04:00 09/02/16 04:00 09/02/16 02:00 09/01/16 23:24 09/02/16 04:00 Intake and Output: 09/02/16 09/02/16 06:59 18:59 Intake Total 600 Output Total 300 Balance 300 - Medications Medications: Current Medications Benzonatate (Tessalon Perles) 100 mg PO TID [facility] Last Admin: 09/01/16 17:30 Dose: 100 mg Enoxaparin Sodium (Lovenox) 40 mg SC DAILY [facility] Last Admin: 09/01/16 09:18 Dose: 40 mg Gabapentin (Neurontin) 800 mg PO TID [facility] Last Admin: 09/01/16 17:28 Dose: 800 mg Guaifenesin (Robitussin) 200 mg PO QID [facility] Last Admin: 09/01/16 22:33 Dose: 200 mg Insulin Aspart (Novolog) 0 unit SC [facility] PRN Reason: Protocol Last Admin: 09/01/16 21:34 Dose: Not Given Insulin Glargine (Lantus) 30 unit SC [facility] Last Admin: 09/01/16 22:33 Dose: 30 u Lamotrigine (Lamictal) 100 mg PO Q12H [facility] Last Admin: 09/01/16 22:32 Dose: 100 mg Lorazepam (Ativan) 2 mg PO TID PRN PRN Reason: Anxiety Last Admin: 08/31/16 22:53 Dose: 2 mg Montelukast Sodium (Singulair) 10 mg PO [facility] Last Admin: 09/01/16 22:32 Dose: 10 mg Morphine Sulfate (Morphine) 2 mg IVP Q12 PRN PRN Reason: Pain, severe (8-10) Oxycodone/Acetaminophen (Percocet 5/325 Mg Tab) 2 tab PO Q6H PRN PRN Reason: Pain, moderate (4-7) Stop: 09/02/16 17:41 Last Admin: 09/01/16 22:41 Dose: 2 tab Pantoprazole Sodium (Protonix Susp) 40 mg PO DAILY [facility] Last Admin: 09/01/16 09:18 Dose: 40 mg Quetiapine Fumarate (Seroquel) 400 mg PO Q12H [facility] Last Admin: 09/02/16 01:07 Dose: 400 mg Sertraline HCl (Zoloft) 100 mg PO HS [facility] Last Admin: 09/01/16 22:33 Dose: 100 mg Trazodone HCl (Desyrel) 150 mg PO HS [facility] Last Admin: 09/01/16 22:32 Dose: 150 mg - Labs Labs: 08/31/16 07:11 08/31/16 07:11 PT 11.4 SECONDS (9.7-12.2) 08/25/16 18:51 INR 1.0 08/25/16 18:51 APTT 24 SECONDS (21-34) 08/25/16 18:51 - Constitutional Appears: No Acute Distress - Head Exam Head Exam: ATRAUMATIC, NORMAL INSPECTION, NORMOCEPHALIC - Eye Exam Eye Exam: EOMI, Normal appearance, PERRL Pupil Exam: NORMAL ACCOMODATION, PERRL - ENT Exam ENT Exam: Mucous Membranes Moist - Respiratory Exam Respiratory Exam: Decreased Breath Sounds, Rhonchi, Wheezes Additional comments: on tracheostomy tube - Cardiovascular Exam Cardiovascular Exam: REGULAR RHYTHM, +S1, +S2. absent: Murmur Assessment and Plan (1) Syncope and collapse Status: Suspected (2) Chr obstructive pulmonary disease w/ acute lower respiratory infxn Status: Acute (3) Diabetes mellitus, insulin dependent (IDDM), uncontrolled Status: Chronic (4) Bipolar disorder Status: Chronic (5) HTN (hypertension) Status: Chronic
[2016-09-02] MEDS: (Novolog) Insulin Aspart, Recombinant 100 u/ml 10 ml vial SC SCH ×3 (07:30→17:59)
--- NOTE | 2016-09-02 08:39 | CP.PCM.PN ---
Subjective - Date & Time of Evaluation Date of Evaluation: 09/02/16 Time of Evaluation: 08:33 - Subjective Subjective: Patient is status post trach in [place] a long time ago for prolonged intubation. There is no pain or discharge from the trach. I was called to see patient for a possible trach change. PMH: as in chart meds: as in chart head: atraumatic face: good movements const: well fed com: communicates well external nose and ears: no masses, nose: deviated septum oc/op: no masses, no lesions lips/gums: no masses, no lesions neck: trach c/d/i lymph: no lad thryroid: no goiter a/p: s/p trach deviated septum since patient has a thick neck and I was not the one who did the trach, I do not feel comfortable changing it. She most likely needs an extra long trach. She may also have severe CALIXTO which is being controled by the trach. Since I do not know how the trach was done there is a chance that once I take the trach out I may not be able to replace it. Therefore, I feel it is best for patient to follow up with the doctor who did her trach for trach replacement. Objective - Vital Signs/Intake and Output Vital Signs (last 24 hours): Temp Pulse Resp BP Pulse Ox 98.7 F 79 19 106/65 95 09/02/16 04:00 09/02/16 04:00 09/02/16 02:00 09/01/16 23:24 09/02/16 04:00 Intake and Output: 09/02/16 09/02/16 06:59 18:59 Intake Total 600 Output Total 300 Balance 300 - Medications Medications: Current Medications Benzonatate (Tessalon Perles) 100 mg PO TID [facility] Last Admin: 09/01/16 17:30 Dose: 100 mg Enoxaparin Sodium (Lovenox) 40 mg SC DAILY [facility] Last Admin: 09/01/16 09:18 Dose: 40 mg Gabapentin (Neurontin) 800 mg PO TID [facility] Last Admin: 09/01/16 17:28 Dose: 800 mg Guaifenesin (Robitussin) 200 mg PO QID [facility] Last Admin: 09/01/16 22:33 Dose: 200 mg Insulin Aspart (Novolog) 0 unit SC ACHS [facility] PRN Reason: Protocol Last Admin: 09/02/16 07:30 Dose: Not Given Insulin Glargine (Lantus) 30 unit SC [facility] Last Admin: 09/01/16 22:33 Dose: 30 u Lamotrigine (Lamictal) 100 mg PO Q12H [facility] Last Admin: 09/01/16 22:32 Dose: 100 mg Lorazepam (Ativan) 2 mg PO TID PRN PRN Reason: Anxiety Last Admin: 08/31/16 22:53 Dose: 2 mg Montelukast Sodium (Singulair) 10 mg PO [facility] Last Admin: 09/01/16 22:32 Dose: 10 mg Morphine Sulfate (Morphine) 2 mg IVP Q12 PRN PRN Reason: Pain, severe (8-10) Oxycodone/Acetaminophen (Percocet 5/325 Mg Tab) 2 tab PO Q6H PRN PRN Reason: Pain, moderate (4-7) Stop: 09/02/16 17:41 Last Admin: 09/01/16 22:41 Dose: 2 tab Pantoprazole Sodium (Protonix Susp) 40 mg PO DAILY [facility] Last Admin: 09/01/16 09:18 Dose: 40 mg Quetiapine Fumarate (Seroquel) 400 mg PO Q12H [facility] Last Admin: 09/02/16 01:07 Dose: 400 mg Sertraline HCl (Zoloft) 100 mg PO [facility] Last Admin: 09/01/16 22:33 Dose: 100 mg Trazodone HCl (Desyrel) 150 mg PO [facility] Last Admin: 09/01/16 22:32 Dose: 150 mg - Labs Labs: 08/31/16 07:11 08/31/16 07:11 PT 11.4 SECONDS (9.7-12.2) 08/25/16 18:51 INR 1.0 08/25/16 18:51 APTT 24 SECONDS (21-34) 08/25/16 18:51
[2016-09-02] MEDS: Oxycodone/Acetaminophen 5/325 mg Tab PO PRN ×2 (08:58→15:46)
[2016-09-02] MEDS: Enoxaparin 40 mg Syringe SC SCH (11:01)
[2016-09-02] MEDS: Pantoprazole 40 mg Susp UD PO SCH (11:02)
[2016-09-02] MEDS: guaiFENesin 200 mg/10 ml Syrup UD PO SCH ×4 (11:02→21:17)
--- NOTE | 2016-09-02 15:53 | CP.PCM.PN ---
Subjective - Date & Time of Evaluation Date of Evaluation: 09/02/16 Time of Evaluation: 15:48 - Subjective Subjective: Patient seen today with 1:1 watch in ICU. Still depressed, paranoid and having fleeting suicidal ideation. Patient wants to go home to her daughter, Toshia but it seems her family cannot care of her anymore and I offered her to go to [facility] for LINDSEY and possible LT care. Has been compliant with meds. Still fearful to go to sleep. MSE- obese female, with trach, oriented x 3, in ICU#5, mood is still depressed, anxious, speech is halting due to trach, affect is reactive. TP- coherent TC- has fleeting SI , no HI, has periods of paranoia, no hallucinations. Attention and memory limited. Insight and Judgment fair. Impulse control fair. Objective - Vital Signs/Intake and Output Vital Signs (last 24 hours): Temp Pulse Resp BP Pulse Ox 98.3 F 79 20 130/74 100 09/02/16 12:00 09/02/16 12:00 09/02/16 12:00 09/02/16 12:00 09/02/16 12:00 Intake and Output: 09/02/16 09/02/16 06:59 18:59 Intake Total 600 720 Output Total 300 Balance 300 720 - Medications Medications: Current Medications Benzonatate (Tessalon Perles) 100 mg PO TID [facility] Last Admin: 09/02/16 13:24 Dose: 100 mg Enoxaparin Sodium (Lovenox) 40 mg SC DAILY [facility] Last Admin: 09/02/16 11:01 Dose: 40 mg Gabapentin (Neurontin) 800 mg PO TID [facility] Last Admin: 09/02/16 13:24 Dose: 800 mg Guaifenesin (Robitussin) 200 mg PO QID [facility] Last Admin: 09/02/16 13:24 Dose: 200 mg Insulin Aspart (Novolog) 0 unit SC ACHS [facility] PRN Reason: Protocol Last Admin: 09/02/16 13:25 Dose: 1 unit Insulin Glargine (Lantus) 30 unit SC HS [facility] Last Admin: 09/01/16 22:33 Dose: 30 u Lamotrigine (Lamictal) 100 mg PO Q12H [facility] Last Admin: 09/02/16 11:02 Dose: 100 mg Lorazepam (Ativan) 2 mg PO TID PRN PRN Reason: Anxiety Last Admin: 08/31/16 22:53 Dose: 2 mg Montelukast Sodium (Singulair) 10 mg PO [facility] Last Admin: 09/01/16 22:32 Dose: 10 mg Morphine Sulfate (Morphine) 2 mg IVP Q12 PRN PRN Reason: Pain, severe (8-10) Last Admin: 09/02/16 11:23 Dose: 2 mg Oxycodone/Acetaminophen (Percocet 5/325 Mg Tab) 2 tab PO Q6H PRN PRN Reason: Pain, moderate (4-7) Stop: 09/02/16 17:41 Last Admin: 09/02/16 15:46 Dose: 2 tab Pantoprazole Sodium (Protonix Susp) 40 mg PO DAILY [facility] Last Admin: 09/02/16 11:02 Dose: 40 mg Quetiapine Fumarate (Seroquel) 400 mg PO Q12H [facility] Last Admin: 09/02/16 13:24 Dose: 400 mg Sertraline HCl (Zoloft) 100 mg PO [facility] Last Admin: 09/01/16 22:33 Dose: 100 mg Trazodone HCl (Desyrel) 150 mg PO [facility] Last Admin: 09/01/16 22:32 Dose: 150 mg - Labs Labs: 08/31/16 07:11 08/31/16 07:11 PT 11.4 SECONDS (9.7-12.2) 08/25/16 18:51 INR 1.0 08/25/16 18:51 APTT 24 SECONDS (21-34) 08/25/16 18:51 - Constitutional Appears: Well, No Acute Distress, Chronically Ill - Head Exam Head Exam: NORMOCEPHALIC - Eye Exam Eye Exam: Normal appearance - ENT Exam ENT Exam: Normal Exam - Neck Exam Additional comments: has trach collar - Respiratory Exam Additional comments: no dyspnea - Cardiovascular Exam Additional comments: no chest pain - GI/Abdominal Exam Additional comments: eats well, no nausea or vomiting - Back Exam Additional comments: no back pain. Pt is on Morphine 2 mg IV bid prn - Neurological Exam Neurological Exam: Alert, Awake, Oriented x3 - Psychiatric Exam Psychiatric exam: Anxious, Depressed - Skin Skin Exam: Normal Color Assessment and Plan - Assessment and Plan (Free Text) Assessment: Schizoaffective disorder- bipolar DM, Respiratory failure, CHF s/p trach Plan: Continue present meds and 1:1 watch. If pt margaret be transferred to regular floor, may need 1:1 watch for suicidal ideation. Once pt is medically stable, patient may go to [facility] for LINDSEY and possible LT care.
[2016-09-02] MEDS: (Lantus) Insulin Glargine, Recombinant SC SCH (21:23)
--- NOTE | 2016-09-02 21:25 | CP.PCM.PN ---
Subjective - Date & Time of Evaluation Date of Evaluation: 09/02/16 Time of Evaluation: 21:24 - Subjective Subjective: CHIEF COMPLAINTS TODAY : afebrile, C/O THICK SECRETIONS ?TRACH CHANGE. SEEN BY ENT AND NOTED. 1:1 WATCH PATIENT'S SUICIDAL.. ROS. HEENT : N. Resp : +ve SOB wheezing, cough Cardio : No CP, PND orthopnea GI : No abd. Pain, n/v CLINICAL OPERATIONS CONSULTANT : No headache , focal deficit. Musculoskel : N Ext. : Pedal pulses intact, no edema or calf pain Derm : N Psych : N. PE. Pt. is alert awake in no distress. V.S As noted in the chart Head ,ear nose,throat and eyes : Normal. Neck : Supple with normal carotids. Lungs: BILATERAL RHONCHI AND WHEEZE. Heart : S1 & S2 normal . . No murmur. S4 + Abd : Soft non tender with normal bowel sounds. Neuro : Moves all ext. with no localized deficit. Ext : No edema with intact pulses. Neg. calf tenderness Derm : No rashes or decubitus ulcer. Radiology/Labs . reviewed. Sputum culture positive for Proteus mirabilis -s amikacin (MDR ) RESISTANT TO MEROPENEM . Objective - Vital Signs/Intake and Output Vital Signs (last 24 hours): Temp Pulse Resp BP Pulse Ox 98.5 F 88 14 131/68 100 09/02/16 16:00 09/02/16 19:00 09/02/16 18:00 09/02/16 18:06 09/02/16 19:00 Intake and Output: 09/02/16 09/03/16 18:59 06:59 Intake Total 1080 Balance 1080 - Medications Medications: Current Medications Benzonatate (Tessalon Perles) 100 mg PO TID [facility] Last Admin: 09/02/16 17:59 Dose: 100 mg Enoxaparin Sodium (Lovenox) 40 mg SC DAILY [facility] Last Admin: 09/02/16 11:01 Dose: 40 mg Gabapentin (Neurontin) 800 mg PO TID [facility] Last Admin: 09/02/16 17:59 Dose: 800 mg Guaifenesin (Robitussin) 200 mg PO QID [facility] Last Admin: 09/02/16 21:17 Dose: 200 mg Insulin Aspart (Novolog) 0 unit SC [facility] PRN Reason: Protocol Last Admin: 09/02/16 17:59 Dose: 2 unit Insulin Glargine (Lantus) 30 unit SC [facility] Last Admin: 09/02/16 21:23 Dose: 30 u Lamotrigine (Lamictal) 100 mg PO Q12H [facility] Last Admin: 09/02/16 21:17 Dose: 100 mg Lorazepam (Ativan) 2 mg PO TID PRN PRN Reason: Anxiety Last Admin: 08/31/16 22:53 Dose: 2 mg Montelukast Sodium (Singulair) 10 mg PO [facility] Last Admin: 09/02/16 21:17 Dose: 10 mg Morphine Sulfate (Morphine) 2 mg IVP Q12 PRN PRN Reason: Pain, severe (8-10) Last Admin: 09/02/16 11:23 Dose: 2 mg Pantoprazole Sodium (Protonix Susp) 40 mg PO DAILY [facility] Last Admin: 09/02/16 11:02 Dose: 40 mg Quetiapine Fumarate (Seroquel) 400 mg PO Q12H [facility] Last Admin: 09/02/16 13:24 Dose: 400 mg Sertraline HCl (Zoloft) 100 mg PO [facility] Last Admin: 09/02/16 21:16 Dose: 100 mg Trazodone HCl (Desyrel) 150 mg PO [facility] Last Admin: 09/02/16 21:16 Dose: 150 mg - Labs Labs: 08/31/16 07:11 08/31/16 07:11 PT 11.4 SECONDS (9.7-12.2) 08/25/16 18:51 INR 1.0 08/25/16 18:51 APTT 24 SECONDS (21-34) 08/25/16 18:51 Assessment and Plan (1) Chr obstructive pulmonary disease w/ acute lower respiratory infxn Status: Acute (2) Pneumonia Assessment & Plan: patient on contact precautions. DC IV MERREM 500 MG EVERY 8 HOURLY.09/01/16 PATIENT ON IV AMIKACIN 500 MG ONCE DAILY X 2 DOSES. 08/31. 09/01/16 CHECK WITH MICRO-FOR SENSITIVITY OF pROTEUS MIRABILIS IN SPUTUM WITH COLISTIN.- P. REPEAT SPUTUM FOR CULTURE ( TRACH ASPIRATE 09/02 -P ) PER ENT TRACH CHANGE DIFFICULT AND COMPLICATED IN THIS PT WITH SHORT NECK. WILL DISCUSS WITH TALENT ACQUISITION PROJECT MANAGER. Status: Acute (3) Asthma Status: Acute (4) Morbid obesity Status: Acute (5) Anxiety and depression Status: Chronic (6) Bipolar disorder Status: Chronic (7) Diabetes mellitus Status: Chronic (8) HTN (hypertension) Status: Chronic
[2016-09-03] MEDS: (Novolog) Insulin Aspart, Recombinant 100 u/ml 10 ml vial SC SCH ×5 (06:08→22:04)
[2016-09-03] MEDS: guaiFENesin 200 mg/10 ml Syrup UD PO SCH ×4 (10:09→22:03)
[2016-09-03] MEDS: Enoxaparin 40 mg Syringe SC SCH (10:09)
[2016-09-03] MEDS: Pantoprazole 40 mg Susp UD PO SCH (10:09)
[2016-09-03] MEDS: Oxycodone/Acetaminophen 5/325 mg Tab PO PRN (11:31)
[2016-09-03] MEDS ORDERED: Albuterol-Ipratrop 3 mg / 0.5 (3 ml) UD INH SCH (12:00)
[2016-09-03] MEDS: Albuterol-Ipratrop 3 mg / 0.5 (3 ml) UD INH SCH ×2 (16:05→19:33)
--- NOTE | 2016-09-03 17:59 | CP.PCM.PN ---
Subjective - Date & Time of Evaluation Date of Evaluation: 09/03/16 Time of Evaluation: 17:54 - Subjective Subjective: Patient seen today and still depressed over the fact that her family is not visiting her in the hospital and doesn't want to take care of her at home. Her daughter, Toshia whom she lives with works 9am to 9 pm daily and having family issues about taking care of her due to her multiple medicall issues. Denies any active si or hi and wants to return to [facility] for [facility] once medically cleared. MSE- obese female, alert and oriented x 3, s/p trach , mood is still depressed, affect is reactive. Speech is halting. TP - coherent TC- no si or hi, no psychosis. Attention and memory limited. Insight and Judgment fair. Impulse control fair. Objective - Vital Signs/Intake and Output Vital Signs (last 24 hours): Temp Pulse Resp BP Pulse Ox 98.3 F 58 L 24 141/78 98 09/03/16 16:00 09/03/16 17:00 09/03/16 16:00 09/03/16 16:00 09/03/16 17:00 Intake and Output: 09/03/16 09/03/16 06:59 18:59 Intake Total 500 860 Output Total 800 400 Balance -300 460 - Medications Medications: Current Medications Albuterol/Ipratropium (Duoneb 3 Mg/0.5 Mg (3 Ml) Ud) 3 ml INH RQID [facility] Benzonatate (Tessalon Perles) 100 mg PO TID [facility] Last Admin: 09/03/16 17:07 Dose: 100 mg Enoxaparin Sodium (Lovenox) 40 mg SC DAILY [facility] Gabapentin (Neurontin) 800 mg PO TID [facility] Last Admin: 09/03/16 17:07 Dose: 800 mg Guaifenesin (Robitussin) 200 mg PO QID [facility] Last Admin: 09/03/16 17:10 Dose: 200 mg Insulin Aspart (Novolog) 0 unit SC ACHS [facility] PRN Reason: Protocol Last Admin: 09/03/16 17:05 Dose: 5 unit Insulin Glargine (Lantus) 30 unit SC HS [facility] Last Admin: 09/02/16 21:23 Dose: 30 u Lamotrigine (Lamictal) 100 mg PO Q12H [facility] Last Admin: 09/03/16 10:09 Dose: 100 mg Lorazepam (Ativan) 2 mg PO TID PRN PRN Reason: Anxiety Last Admin: 09/02/16 23:05 Dose: 2 mg Montelukast Sodium (Singulair) 10 mg PO [facility] Last Admin: 09/02/16 21:17 Dose: 10 mg Morphine Sulfate (Morphine) 2 mg IVP Q12 PRN PRN Reason: Pain, severe (8-10) Last Admin: 09/02/16 23:31 Dose: 2 mg Oxycodone/Acetaminophen (Percocet 5/325 Mg Tab) 1 tab PO Q4H PRN PRN Reason: Pain, moderate (4-7) Stop: 09/06/16 10:42 Last Admin: 09/03/16 11:31 Dose: 1 tab Pantoprazole Sodium (Protonix Susp) 40 mg PO DAILY [facility] Last Admin: 09/03/16 10:09 Dose: 40 mg Quetiapine Fumarate (Seroquel) 400 mg PO Q12H [facility] Last Admin: 09/03/16 13:53 Dose: 400 mg Sertraline HCl (Zoloft) 100 mg PO [facility] Last Admin: 09/02/16 21:16 Dose: 100 mg Trazodone HCl (Desyrel) 150 mg PO [facility] Last Admin: 09/02/16 21:16 Dose: 150 mg - Labs Labs: 08/31/16 07:11 08/31/16 07:11 PT 11.4 SECONDS (9.7-12.2) 08/25/16 18:51 INR 1.0 08/25/16 18:51 APTT 24 SECONDS (21-34) 08/25/16 18:51 - Constitutional Appears: Well, No Acute Distress - Head Exam Head Exam: NORMOCEPHALIC - Eye Exam Eye Exam: Normal appearance - ENT Exam ENT Exam: Normal Exam - Neck Exam Additional comments: s/p trach - Respiratory Exam Additional comments: no dyspnea - Cardiovascular Exam Additional comments: no chest pain - GI/Abdominal Exam Additional comments: eats well, no abdominal pain - Exam Additional comments: no dysuria - Extremities Exam Extremities Exam: Full ROM - Back Exam Additional comments: no back pain - Neurological Exam Neurological Exam: Awake, Oriented x3 - Psychiatric Exam Psychiatric exam: Depressed, Normal Affect - Skin Skin Exam: Normal Color Assessment and Plan - Assessment and Plan (Free Text) Assessment: Schizoaffective disorder- bipolar type Hx of respiratory failure, s/p trach Dm, CHF, Obesity Plan: Will stop 1:1 watch for now as pt is no longer having suicidal ideation or homicidal ideation. Continue present psych meds as ordered. Will refer to [facility] for [facility]SE[facility] once medically cleared. May need eventually LT placement if her family will no longer take care of her at home.
[2016-09-03] MEDS: (Lantus) Insulin Glargine, Recombinant SC SCH (22:03)
--- NOTE | 2016-09-03 23:29 | CP.PCM.PN ---
Subjective - Date & Time of Evaluation Date of Evaluation: 09/03/16 Time of Evaluation: 21:00 - Subjective Subjective: PT SEEN AND EXAMINED, CLININCALLY UNCHANGED Objective - Vital Signs/Intake and Output Vital Signs (last 24 hours): Temp Pulse Resp BP Pulse Ox 98.5 F 58 L 24 141/78 98 09/03/16 19:57 09/03/16 17:00 09/03/16 16:00 09/03/16 16:00 09/03/16 17:00 Intake and Output: 09/03/16 09/04/16 18:59 06:59 Intake Total 860 Output Total 400 Balance 460 - Medications Medications: Current Medications Albuterol/Ipratropium (Duoneb 3 Mg/0.5 Mg (3 Ml) Ud) 3 ml INH RQID [facility] Last Admin: 09/03/16 19:33 Dose: 3 ml Benzonatate (Tessalon Perles) 100 mg PO TID [facility] Last Admin: 09/03/16 17:07 Dose: 100 mg Enoxaparin Sodium (Lovenox) 40 mg SC DAILY [facility] Gabapentin (Neurontin) 800 mg PO TID [facility] Last Admin: 09/03/16 17:07 Dose: 800 mg Guaifenesin (Robitussin) 200 mg PO QID [facility] Last Admin: 09/03/16 22:03 Dose: 200 mg Insulin Aspart (Novolog) 0 unit SC [facility] PRN Reason: Protocol Last Admin: 09/03/16 22:04 Dose: Not Given Insulin Glargine (Lantus) 30 unit SC [facility] Last Admin: 09/03/16 22:03 Dose: 30 u Lamotrigine (Lamictal) 100 mg PO Q12H [facility] Last Admin: 09/03/16 10:09 Dose: 100 mg Lorazepam (Ativan) 2 mg PO TID PRN PRN Reason: Anxiety Last Admin: 09/02/16 23:05 Dose: 2 mg Montelukast Sodium (Singulair) 10 mg PO [facility] Last Admin: 09/03/16 21:59 Dose: 10 mg Morphine Sulfate (Morphine) 2 mg IVP Q12 PRN PRN Reason: Pain, severe (8-10) Last Admin: 09/03/16 18:48 Dose: 2 mg Oxycodone/Acetaminophen (Percocet 5/325 Mg Tab) 1 tab PO Q4H PRN PRN Reason: Pain, moderate (4-7) Stop: 09/06/16 10:42 Last Admin: 09/03/16 11:31 Dose: 1 tab Pantoprazole Sodium (Protonix Susp) 40 mg PO DAILY [facility] Last Admin: 09/03/16 10:09 Dose: 40 mg Quetiapine Fumarate (Seroquel) 400 mg PO Q12H [facility] Last Admin: 09/03/16 13:53 Dose: 400 mg Sertraline HCl (Zoloft) 100 mg PO HS [facility] Last Admin: 09/03/16 21:59 Dose: 100 mg Trazodone HCl (Desyrel) 150 mg PO HS [facility] Last Admin: 09/03/16 22:02 Dose: 150 mg - Labs Labs: 08/31/16 07:11 08/31/16 07:11 PT 11.4 SECONDS (9.7-12.2) 08/25/16 18:51 INR 1.0 08/25/16 18:51 APTT 24 SECONDS (21-34) 08/25/16 18:51 Assessment and Plan (1) Syncope and collapse Status: Suspected (2) Chr obstructive pulmonary disease w/ acute lower respiratory infxn Status: Acute (3) Diabetes mellitus, insulin dependent (IDDM), uncontrolled Status: Chronic (4) Bipolar disorder Status: Chronic (5) HTN (hypertension) Status: Chronic
[2016-09-04] MEDS: Albuterol-Ipratrop 3 mg / 0.5 (3 ml) UD INH SCH ×4 (08:00→20:09)
[2016-09-04] MEDS: (Novolog) Insulin Aspart, Recombinant 100 u/ml 10 ml vial SC SCH ×4 (08:55→21:16)
[2016-09-04] MEDS: Pantoprazole 40 mg Susp UD PO SCH (09:49)
[2016-09-04] MEDS: guaiFENesin 200 mg/10 ml Syrup UD PO SCH ×4 (09:49→21:41)
[2016-09-04] MEDS ORDERED: Enoxaparin 60 mg Syringe SC SCH (10:00)
[2016-09-04] MEDS: Enoxaparin 60 mg Syringe SC SCH (11:57)
[2016-09-04 12:03] LABS: BASO % 0.2 % (0.0-2.0); EOS % 0.2 % (0.0-4.0); HEMOGLOBIN 11.6 g/dL (11.0-16.0); LYMPH # 2.2 K/uL (1.0-4.3); LYMPH % 19.6 % (20.0-40.0); MEAN CELL VOLUME 79.4 fL (81.0-99.0); MEAN CORPUSCULAR HGB CONC 32.8 g/dL (33.0-37.0); MEAN PLATELET VOLUME 8.4 fL (7.2-11.7); MONO # 0.9 K/uL (0.0-0.8); MONO % 7.7 % (0.0-10.0); NEUT # 8.1 K/uL (1.8-7.0); NEUT % 72.3 % (50.0-75.0); NRBC % 0.1 % (0.0-2.0); RBC 4.45 Mil/uL (3.80-5.20); WHITE BLOOD COUNT 11.2 K/uL (4.8-10.8)
[2016-09-04 12:16] LABS: ALBUMIN 3.7 g/dL (3.5-5.0)
--- NOTE | 2016-09-04 12:16 | CP.PCM.PN ---
Subjective - Date & Time of Evaluation Date of Evaluation: 09/04/16 Time of Evaluation: 12:16 - Subjective Subjective: CHIEF COMPLAINTS TODAY : afebrile, +VE SECRETIONS CLINICALLY SAME OFF 1:1 WATCH STILL DEPRESSED ROS. HEENT : N. Resp : +ve SOB wheezing, cough Cardio : No CP, PND orthopnea GI : No abd. Pain, n/v BALLISTICS PROFESSOR : No headache , focal deficit. Musculoskel : N Ext. : Pedal pulses intact, no edema or calf pain Derm : N Psych : N. PE. Pt. is alert awake in no distress. V.S As noted in the chart Head ,ear nose,throat and eyes : Normal. Neck : Supple with normal carotids. Lungs: BILATERAL RHONCHI AND WHEEZE. Heart : S1 & S2 normal . . No murmur. S4 + Abd : Soft non tender with normal bowel sounds. Neuro : Moves all ext. with no localized deficit. Ext : No edema with intact pulses. Neg. calf tenderness Derm : No rashes or decubitus ulcer. Radiology/Labs . reviewed. wbc 11.1 REPEAT SPUTUM CULTURE +VE PSEUDOMONAS AERUGINOSA -S AMIKACIN BECKA 8 Sputum culture positive for Proteus mirabilis -s amikacin (MDR ) RESISTANT TO MEROPENEM . Objective - Vital Signs/Intake and Output Vital Signs (last 24 hours): Temp Pulse Resp BP Pulse Ox 98.2 F 78 20 116/72 96 09/04/16 07:00 09/04/16 07:00 09/04/16 07:00 09/04/16 07:00 09/04/16 07:00 - Medications Medications: Current Medications Albuterol/Ipratropium (Duoneb 3 Mg/0.5 Mg (3 Ml) Ud) 3 ml INH RQID [facility] Last Admin: 09/03/16 19:33 Dose: 3 ml Benzonatate (Tessalon Perles) 100 mg PO TID [facility] Last Admin: 09/04/16 09:50 Dose: 100 mg Enoxaparin Sodium (Lovenox) 60 mg SC DAILY [facility] Last Admin: 09/04/16 11:57 Dose: 60 mg Gabapentin (Neurontin) 800 mg PO TID [facility] Last Admin: 09/04/16 09:51 Dose: 800 mg Guaifenesin (Robitussin) 200 mg PO QID [facility] Last Admin: 09/04/16 09:49 Dose: 200 mg Insulin Aspart (Novolog) 0 unit SC [facility] PRN Reason: Protocol Last Admin: 09/04/16 08:55 Dose: 2 unit Insulin Glargine (Lantus) 30 unit SC [facility] Last Admin: 09/03/16 22:03 Dose: 30 u Lamotrigine (Lamictal) 100 mg PO Q12H [facility] Last Admin: 09/04/16 09:49 Dose: 100 mg Lorazepam (Ativan) 2 mg PO TID PRN PRN Reason: Anxiety Last Admin: 09/04/16 11:41 Dose: 2 mg Montelukast Sodium (Singulair) 10 mg PO [facility] Last Admin: 09/03/16 21:59 Dose: 10 mg Morphine Sulfate (Morphine) 2 mg IVP Q12 PRN PRN Reason: Pain, severe (8-10) Last Admin: 09/03/16 18:48 Dose: 2 mg Oxycodone/Acetaminophen (Percocet 5/325 Mg Tab) 1 tab PO Q4H PRN PRN Reason: Pain, moderate (4-7) Stop: 09/06/16 10:42 Last Admin: 09/03/16 11:31 Dose: 1 tab Pantoprazole Sodium (Protonix Susp) 40 mg PO DAILY [facility] Last Admin: 09/04/16 09:49 Dose: 40 mg Quetiapine Fumarate (Seroquel) 400 mg PO Q12H [facility] Last Admin: 09/03/16 13:53 Dose: 400 mg Sertraline HCl (Zoloft) 100 mg PO [facility] Last Admin: 09/03/16 21:59 Dose: 100 mg Trazodone HCl (Desyrel) 150 mg PO [facility] Last Admin: 09/03/16 22:02 Dose: 150 mg - Labs Labs: 09/04/16 11:49 08/31/16 07:11 PT 11.4 SECONDS (9.7-12.2) 08/25/16 18:51 INR 1.0 08/25/16 18:51 APTT 24 SECONDS (21-34) 08/25/16 18:51 Assessment and Plan (1) Chr obstructive pulmonary disease w/ acute lower respiratory infxn Status: Acute (2) Pneumonia Assessment & Plan: patient on contact precautions. OFF IV MERREM 500 MG EVERY 8 HOURLY.09/01/16 PATIENT ON IV AMIKACIN 500 MG ONCE DAILY X 2 DOSES. 08/31. 09/01/16 REPEAT SPUTUM CULTURE POSITIVE FOR PSEUDOMONAS AERUGINOSA- (MDR ) CHECK WITH MICRO-FOR SENSITIVITY OF pROTEUS MIRABILIS IN SPUTUM WITH COLISTIN.- P FOLLOW-UP CHEST X-RAY. IF NO INFILTRATE, MOST LIKELY COLONIZATION. WILL HOLD OFF ANTIBIOTICS IN VIEW OF TOXICITY OF AMINOGLYCOSIDES. CONTINUE PULMONARY TOILET. WILL DISCUSS WITH PMD Status: Acute (3) Asthma Status: Acute (4) Morbid obesity Status: Acute (5) Anxiety and depression Status: Chronic (6) Bipolar disorder Status: Chronic (7) Diabetes mellitus Status: Chronic (8) HTN (hypertension) Status: Chronic
[2016-09-04 12:18] LABS: GFR AFRICAN-AMERICAN > 60; GFR NON-AFRICAN AMERICAN > 60
[2016-09-04 12:19] LABS: ALT/SGPT 22 U/L (9-52); AST/SGOT 18 U/L (14-36); BLOOD UREA NITROGEN 13 mg/dL (7-17)
[2016-09-04 12:20] LABS: CALCIUM 9.4 mg/dl (8.6-10.4)
--- NOTE | 2016-09-04 15:11 | CP.PCM.PN ---
Subjective - Date & Time of Evaluation Date of Evaluation: 09/04/16 Time of Evaluation: 15:07 - Subjective Subjective: Patient seen today and off 1:1 watch for suicidal ideation. Still depressed and looking for her daughter, Toshia to visit her. Patient is looking forward to be transferred to [facility] once medically cleared. Compliant with med sintake. Still has trouble sleeping. MSE- obese female, alert and oriented x 3, mood is still anxious and chronically depressed, affect is reactive. TP - coherent TC- no si or hi, no psychosis. Patient looking for her daughter, Toshia to visit her at the hospital. Attention and Memory limited. Insight and Judgment fair. Impulse control fair. Objective - Vital Signs/Intake and Output Vital Signs (last 24 hours): Temp Pulse Resp BP Pulse Ox 98.2 F 78 20 116/72 96 09/04/16 07:00 09/04/16 07:00 09/04/16 07:00 09/04/16 07:00 09/04/16 07:00 - Medications Medications: Current Medications Albuterol/Ipratropium (Duoneb 3 Mg/0.5 Mg (3 Ml) Ud) 3 ml INH RQID [facility] Last Admin: 09/04/16 14:18 Dose: 3 ml Benzonatate (Tessalon Perles) 100 mg PO TID [facility] Last Admin: 09/04/16 14:14 Dose: 100 mg Enoxaparin Sodium (Lovenox) 60 mg SC DAILY [facility] Last Admin: 09/04/16 11:57 Dose: 60 mg Gabapentin (Neurontin) 800 mg PO TID [facility] Last Admin: 09/04/16 14:14 Dose: 800 mg Guaifenesin (Robitussin) 200 mg PO QID [facility] Last Admin: 09/04/16 14:14 Dose: 200 mg Insulin Aspart (Novolog) 0 unit SC ACHS [facility] PRN Reason: Protocol Last Admin: 09/04/16 12:41 Dose: 3 unit Insulin Glargine (Lantus) 30 unit SC HS [facility] Last Admin: 09/03/16 22:03 Dose: 30 u Lamotrigine (Lamictal) 100 mg PO Q12H [facility] Last Admin: 09/04/16 09:49 Dose: 100 mg Lorazepam (Ativan) 2 mg PO TID PRN PRN Reason: Anxiety Last Admin: 09/04/16 11:41 Dose: 2 mg Montelukast Sodium (Singulair) 10 mg PO [facility] Last Admin: 09/03/16 21:59 Dose: 10 mg Morphine Sulfate (Morphine) 2 mg IVP Q12 PRN PRN Reason: Pain, severe (8-10) Last Admin: 09/03/16 18:48 Dose: 2 mg Oxycodone/Acetaminophen (Percocet 5/325 Mg Tab) 1 tab PO Q4H PRN PRN Reason: Pain, moderate (4-7) Stop: 09/06/16 10:42 Last Admin: 09/03/16 11:31 Dose: 1 tab Pantoprazole Sodium (Protonix Susp) 40 mg PO DAILY [facility] Last Admin: 09/04/16 09:49 Dose: 40 mg Quetiapine Fumarate (Seroquel) 400 mg PO Q12H [facility] Last Admin: 09/04/16 12:42 Dose: 400 mg Sertraline HCl (Zoloft) 100 mg PO [facility] Last Admin: 09/03/16 21:59 Dose: 100 mg Trazodone HCl (Desyrel) 150 mg PO [facility] Last Admin: 09/03/16 22:02 Dose: 150 mg - Labs Labs: 09/04/16 11:49 09/04/16 11:49 PT 11.4 SECONDS (9.7-12.2) 08/25/16 18:51 INR 1.0 08/25/16 18:51 APTT 24 SECONDS (21-34) 08/25/16 18:51 - Constitutional Appears: No Acute Distress, Chronically Ill - Head Exam Head Exam: NORMOCEPHALIC - Eye Exam Eye Exam: Normal appearance - ENT Exam ENT Exam: Normal Exam - Neck Exam Additional comments: s/p trach - Respiratory Exam Additional comments: no dyspnea - Cardiovascular Exam Additional comments: no sches tpain or palpitations - GI/Abdominal Exam Additional comments: eats well, no nausea or vomting - Extremities Exam Extremities Exam: Full ROM - Back Exam Additional comments: no back pain - Neurological Exam Neurological Exam: Alert, Awake, Oriented x3 - Psychiatric Exam Psychiatric exam: Anxious, Depressed - Skin Skin Exam: Normal Color Assessment and Plan - Assessment and Plan (Free Text) Assessment: Schizoaffective disorder Hx of respiratory failure s/p trach, DM, CHF, sepsis Plan: Continue present psych meds and antibiotics as ordered. Patient maybe referred to [facility] for [facility] once medically cleared.
[2016-09-04] MEDS: (Lantus) Insulin Glargine, Recombinant SC SCH (21:40)
[2016-09-04] MEDS: Oxycodone/Acetaminophen 5/325 mg Tab PO PRN (21:50)
--- NOTE | 2016-09-04 23:11 | CP.PCM.PN ---
Subjective - Date & Time of Evaluation Date of Evaluation: 09/04/16 Time of Evaluation: 20:00 - Subjective Subjective: Pt seen and examind, remains depressed, positive secreations in trach Objective - Vital Signs/Intake and Output Vital Signs (last 24 hours): Temp Pulse Resp BP Pulse Ox 98.1 F 79 20 112/77 95 09/04/16 16:43 09/04/16 16:43 09/04/16 16:43 09/04/16 16:43 09/04/16 16:43 - Medications Medications: Current Medications Albuterol/Ipratropium (Duoneb 3 Mg/0.5 Mg (3 Ml) Ud) 3 ml INH RQID [facility] Last Admin: 09/04/16 20:09 Dose: 3 ml Benzonatate (Tessalon Perles) 100 mg PO TID [facility] Last Admin: 09/04/16 19:02 Dose: 100 mg Enoxaparin Sodium (Lovenox) 60 mg SC DAILY [facility] Last Admin: 09/04/16 11:57 Dose: 60 mg Gabapentin (Neurontin) 800 mg PO TID [facility] Last Admin: 09/04/16 19:01 Dose: 800 mg Guaifenesin (Robitussin) 200 mg PO QID [facility] Last Admin: 09/04/16 21:41 Dose: 200 mg Insulin Aspart (Novolog) 0 unit SC [facility] PRN Reason: Protocol Last Admin: 09/04/16 21:16 Dose: Not Given Insulin Glargine (Lantus) 30 unit SC [facility] Last Admin: 09/04/16 21:40 Dose: 30 u Lamotrigine (Lamictal) 100 mg PO Q12H [facility] Last Admin: 09/04/16 21:41 Dose: 100 mg Lorazepam (Ativan) 2 mg PO TID PRN PRN Reason: Anxiety Last Admin: 09/04/16 21:40 Dose: 2 mg Montelukast Sodium (Singulair) 10 mg PO [facility] Last Admin: 09/04/16 21:41 Dose: 10 mg Morphine Sulfate (Morphine) 2 mg IVP Q12 PRN PRN Reason: Pain, severe (8-10) Last Admin: 09/04/16 15:00 Dose: 2 mg Oxycodone/Acetaminophen (Percocet 5/325 Mg Tab) 1 tab PO Q4H PRN PRN Reason: Pain, moderate (4-7) Stop: 09/06/16 10:42 Last Admin: 09/04/16 21:50 Dose: 1 tab Pantoprazole Sodium (Protonix Susp) 40 mg PO DAILY [facility] Last Admin: 09/04/16 09:49 Dose: 40 mg Quetiapine Fumarate (Seroquel) 400 mg PO Q12H [facility] Last Admin: 09/04/16 12:42 Dose: 400 mg Sertraline HCl (Zoloft) 100 mg PO HS [facility] Last Admin: 09/04/16 21:41 Dose: 100 mg Trazodone HCl (Desyrel) 150 mg PO HS [facility] Last Admin: 09/04/16 21:43 Dose: 150 mg - Labs Labs: 09/04/16 11:49 09/04/16 11:49 PT 11.4 SECONDS (9.7-12.2) 08/25/16 18:51 INR 1.0 08/25/16 18:51 APTT 24 SECONDS (21-34) 08/25/16 18:51 Assessment and Plan (1) Syncope and collapse Status: Suspected (2) Chr obstructive pulmonary disease w/ acute lower respiratory infxn Status: Acute (3) Diabetes mellitus, insulin dependent (IDDM), uncontrolled Status: Chronic (4) Bipolar disorder Status: Chronic (5) HTN (hypertension) Status: Chronic
[2016-09-05] MEDS: Oxycodone/Acetaminophen 5/325 mg Tab PO PRN ×4 (03:05→21:57)
[2016-09-05] MEDS: (Novolog) Insulin Aspart, Recombinant 100 u/ml 10 ml vial SC SCH ×4 (08:06→22:06)
[2016-09-05] MEDS: Albuterol-Ipratrop 3 mg / 0.5 (3 ml) UD INH SCH ×4 (08:18→20:12)
--- NOTE | 2016-09-05 10:10 | CP.PCM.PN ---
Subjective - Date & Time of Evaluation Date of Evaluation: 09/05/16 Time of Evaluation: 10:08 - Subjective Subjective: Patient seen today and doing better. Still looking for a visit from her family. Less depressed, no si and willing to go to [facility] for [place]. MSE- obese female, alert and orietned x3, s/p trach mood is brighter, sppech is still halting, affect is reactive. TP -coherent TC- no si or hi, no psychosis. Attention and memory fair. Insight and Judgment fair. Impulse control fair. Objective - Vital Signs/Intake and Output Vital Signs (last 24 hours): Temp Pulse Resp BP Pulse Ox 97.8 F 74 20 115/73 98 09/05/16 08:11 09/05/16 08:11 09/05/16 08:11 09/05/16 08:11 09/05/16 08:11 - Medications Medications: Current Medications Albuterol/Ipratropium (Duoneb 3 Mg/0.5 Mg (3 Ml) Ud) 3 ml INH RQID [facility] Last Admin: 09/05/16 08:18 Dose: 3 ml Benzonatate (Tessalon Perles) 100 mg PO TID [facility] Last Admin: 09/04/16 19:02 Dose: 100 mg Enoxaparin Sodium (Lovenox) 60 mg SC DAILY [facility] Last Admin: 09/04/16 11:57 Dose: 60 mg Gabapentin (Neurontin) 800 mg PO TID [facility] Last Admin: 09/04/16 19:01 Dose: 800 mg Guaifenesin (Robitussin) 200 mg PO QID [facility] Last Admin: 09/04/16 21:41 Dose: 200 mg Insulin Aspart (Novolog) 0 unit SC [facility] PRN Reason: Protocol Last Admin: 09/05/16 08:06 Dose: 1 unit Insulin Glargine (Lantus) 30 unit SC [facility] Last Admin: 09/04/16 21:40 Dose: 30 u Lamotrigine (Lamictal) 100 mg PO Q12H [facility] Last Admin: 09/04/16 21:41 Dose: 100 mg Lorazepam (Ativan) 2 mg PO TID PRN PRN Reason: Anxiety Last Admin: 09/04/16 21:40 Dose: 2 mg Montelukast Sodium (Singulair) 10 mg PO [facility] Last Admin: 09/04/16 21:41 Dose: 10 mg Morphine Sulfate (Morphine) 2 mg IVP Q12 PRN PRN Reason: Pain, severe (8-10) Last Admin: 09/05/16 01:27 Dose: 2 mg Oxycodone/Acetaminophen (Percocet 5/325 Mg Tab) 1 tab PO Q4H PRN PRN Reason: Pain, moderate (4-7) Stop: 09/06/16 10:42 Last Admin: 09/05/16 08:07 Dose: 1 tab Pantoprazole Sodium (Protonix Susp) 40 mg PO DAILY [facility] Last Admin: 09/04/16 09:49 Dose: 40 mg Quetiapine Fumarate (Seroquel) 400 mg PO Q12H [facility] Last Admin: 09/05/16 00:37 Dose: 400 mg Sertraline HCl (Zoloft) 100 mg PO HS [facility] Last Admin: 09/04/16 21:41 Dose: 100 mg Trazodone HCl (Desyrel) 150 mg PO HS [facility] Last Admin: 09/04/16 21:43 Dose: 150 mg - Labs Labs: 09/04/16 11:49 09/04/16 11:49 PT 11.4 SECONDS (9.7-12.2) 08/25/16 18:51 INR 1.0 08/25/16 18:51 APTT 24 SECONDS (21-34) 08/25/16 18:51 - Constitutional Appears: Well, No Acute Distress, Chronically Ill - Head Exam Head Exam: NORMOCEPHALIC - Eye Exam Eye Exam: Normal appearance - ENT Exam ENT Exam: Normal Exam - Neck Exam Additional comments: s/p trach - Respiratory Exam Additional comments: no dyspnea - Cardiovascular Exam Additional comments: no chest pain - GI/Abdominal Exam Additional comments: eats well - Exam Additional comments: no dysuria - Back Exam Additional comments: movinge her extremities - Neurological Exam Neurological Exam: Abnormal Gait, Alert, Awake, Oriented x3 - Psychiatric Exam Psychiatric exam: Anxious, Depressed - Skin Skin Exam: Normal Color Assessment and Plan - Assessment and Plan (Free Text) Assessment: Schizoaffective disorder Respiratory failure CHF, Dm, sepsis Plan: Continue tx plan and present psych meds. For [facility] once medically cleared.
--- NOTE | 2016-09-05 10:47 | RAD ---
HISTORY: COPD /BPI COMPARISON: 08/29/2016 FINDINGS: LUNGS: Study rotated towards the right -as before Tracheostomy tube in place. Lung volumes low-normal. Bronchovascular markings- mildly increased left greater than right. Patchy opacity left lung base - similar appearing -patchy infiltrate persists versus coalescent pulmonary edema - some considerations. PLEURA: No significant pleural effusion identified, no pneumothorax apparent. CARDIOVASCULAR: Cardiomegaly-as before OSSEOUS STRUCTURES: Thoracic spondylosis VISUALIZED UPPER ABDOMEN: Normal. OTHER FINDINGS: None. IMPRESSION: Limited exam given shallow inspiration, rotated status and large body habitus. Left basal small patchy infiltrate suspect- similar-appearing Mild pulmonary vascular congestion left greater than right -similar-appearing
[2016-09-05] MEDS: Pantoprazole 40 mg Susp UD PO SCH (11:17)
[2016-09-05] MEDS: guaiFENesin 200 mg/10 ml Syrup UD PO SCH ×4 (11:17→22:06)
[2016-09-05] MEDS: Enoxaparin 60 mg Syringe SC SCH (11:22)
[2016-09-05] MEDS: (Lantus) Insulin Glargine, Recombinant SC SCH (21:56)
--- NOTE | 2016-09-05 23:22 | CP.PCM.PN ---
Subjective - Date & Time of Evaluation Date of Evaluation: 09/05/16 Time of Evaluation: 23:22 - Subjective Subjective: CHIEF COMPLAINTS TODAY : afebrile, +VE SECRETIONS CLINICALLY SAME sputum +ve pseudomonas aeruginosa -S- COLISTIN STILL DEPRESSED ROS. HEENT : N. Resp : +ve SOB wheezing, cough Cardio : No CP, PND orthopnea GI : No abd. Pain, n/v [employer] : No headache , focal deficit. Musculoskel : N Ext. : Pedal pulses intact, no edema or calf pain Derm : N Psych : N. PE. Pt. is alert awake in no distress. V.S As noted in the chart Head ,ear nose,throat and eyes : Normal. Neck : Supple with normal carotids. Lungs: BILATERAL RHONCHI AND WHEEZE. Heart : S1 & S2 normal . . No murmur. S4 + Abd : Soft non tender with normal bowel sounds. Neuro : Moves all ext. with no localized deficit. Ext : No edema with intact pulses. Neg. calf tenderness Derm : No rashes or decubitus ulcer. Radiology/Labs . reviewed. wbc 11.1 REPEAT SPUTUM CULTURE +VE PSEUDOMONAS AERUGINOSA -S AMIKACIN BECKA 8 S- COLISTIN Sputum culture positive for Proteus mirabilis -s amikacin (MDR ) RESISTANT TO MEROPENEM . Objective - Vital Signs/Intake and Output Vital Signs (last 24 hours): Temp Pulse Resp BP Pulse Ox 98.2 F 87 20 92/58 L 98 09/05/16 17:43 09/05/16 17:43 09/05/16 17:43 09/05/16 17:43 09/05/16 17:43 - Medications Medications: Current Medications Albuterol/Ipratropium (Duoneb 3 Mg/0.5 Mg (3 Ml) Ud) 3 ml INH RQID [facility] Last Admin: 09/05/16 20:12 Dose: 3 ml Benzonatate (Tessalon Perles) 100 mg PO TID [facility] Last Admin: 09/05/16 18:36 Dose: 100 mg Enoxaparin Sodium (Lovenox) 60 mg SC DAILY [facility] Last Admin: 09/05/16 11:22 Dose: 60 mg Gabapentin (Neurontin) 800 mg PO TID [facility] Last Admin: 09/05/16 18:35 Dose: 800 mg Guaifenesin (Robitussin) 200 mg PO QID [facility] Last Admin: 09/05/16 22:06 Dose: 200 mg Colistimethate Sodium 150 mg/ (Sodium Chloride) 100 mls @ 100 mls/hr IV Q12H [facility] Last Admin: 09/05/16 14:54 Dose: 100 mls/hr Insulin Aspart (Novolog) 0 unit SC ACHS [facility] PRN Reason: Protocol Last Admin: 09/05/16 22:06 Dose: Not Given Insulin Glargine (Lantus) 30 unit SC [facility] Last Admin: 09/05/16 21:56 Dose: 30 u Lamotrigine (Lamictal) 100 mg PO Q12H [facility] Last Admin: 09/05/16 21:56 Dose: 100 mg Lorazepam (Ativan) 2 mg PO TID PRN PRN Reason: Anxiety Last Admin: 09/04/16 21:40 Dose: 2 mg Montelukast Sodium (Singulair) 10 mg PO [facility] Last Admin: 09/05/16 21:59 Dose: 10 mg Morphine Sulfate (Morphine) 2 mg IVP Q12 PRN PRN Reason: Pain, severe (8-10) Last Admin: 09/05/16 13:34 Dose: 2 mg Oxycodone/Acetaminophen (Percocet 5/325 Mg Tab) 1 tab PO Q4H PRN PRN Reason: Pain, moderate (4-7) Stop: 09/06/16 10:42 Last Admin: 09/05/16 21:57 Dose: 1 tab Pantoprazole Sodium (Protonix Susp) 40 mg PO DAILY [facility] Last Admin: 09/05/16 11:17 Dose: 40 mg Quetiapine Fumarate (Seroquel) 400 mg PO Q12H [facility] Last Admin: 09/05/16 13:34 Dose: 400 mg Sertraline HCl (Zoloft) 100 mg PO [facility] Last Admin: 09/05/16 21:57 Dose: 100 mg Trazodone HCl (Desyrel) 150 mg PO [facility] Last Admin: 09/05/16 21:56 Dose: 150 mg - Labs Labs: 09/04/16 11:49 09/04/16 11:49 PT 11.4 SECONDS (9.7-12.2) 08/25/16 18:51 INR 1.0 08/25/16 18:51 APTT 24 SECONDS (21-34) 08/25/16 18:51 Assessment and Plan (1) Chr obstructive pulmonary disease w/ acute lower respiratory infxn Status: Acute (2) Pneumonia Assessment & Plan: chest x-ray 09/05/16-LEFT BASAL PATCHY INFILTRATE. mILD PERIPHERAL VASCULAR CONGESTION. sPUTUM POSITIVE FOR PSEUDOMONAS AERUGINOSA S -COLISTIN CASE DISCUSSED WITH NURSE PRACTITIONER MS DÍAZ. PATIENT TODAY PLACED ON iv COLISTIN 150 MG EVERY 12 HOURLY FOR 7 DAYS. mONITOR RENAL FUNCTIONS CLOSELY pULMONARY TOILET WHEN NECESSARY sTRICT CONTACT PRECAUTIONS. Status: Acute (3) Asthma Status: Acute (4) Morbid obesity Status: Acute (5) Anxiety and depression Status: Chronic (6) Bipolar disorder Status: Chronic (7) Diabetes mellitus Status: Chronic (8) HTN (hypertension) Status: Chronic
[2016-09-06] MEDS: Albuterol-Ipratrop 3 mg / 0.5 (3 ml) UD INH SCH ×4 (07:45→19:43)
[2016-09-06] MEDS: (Novolog) Insulin Aspart, Recombinant 100 u/ml 10 ml vial SC SCH ×2 (08:20→17:09)
[2016-09-06] MEDS: guaiFENesin 200 mg/10 ml Syrup UD PO SCH ×3 (12:03→21:46)
[2016-09-06] MEDS: Enoxaparin 60 mg Syringe SC SCH (12:03)
[2016-09-06] MEDS: Pantoprazole 40 mg Susp UD PO SCH (12:04)
[2016-09-06] MEDS ORDERED: Lidocaine 1% Inj (20ml) ONE (13:34)
[2016-09-06] MEDS ORDERED: Lactated Ringer's 1,000 ML IV ONE (13:40)
[2016-09-06] MEDS ORDERED: Midazolam 2 MG/2 ML VIAL ONE ×3 (13:41→13:56)
[2016-09-06] MEDS ORDERED: Propofol 10 mg/ml Inj (20 ML) ONE (13:57)
[2016-09-06] MEDS: HYDROmorphone 0.5 mg/0.5 ml ISec IVP PRN ×2 (14:30→14:50)
[2016-09-06] MEDS ORDERED: HYDROmorphone 0.5 mg/0.5 ml ISec ONE (14:49)
[2016-09-06] MEDS: Oxycodone/Acetaminophen 5/325 mg Tab PO PRN ×2 (17:47→21:46)
[2016-09-06] MEDS: (Lantus) Insulin Glargine, Recombinant SC SCH (21:46)
--- NOTE | 2016-09-06 22:36 | CP.PCM.PN ---
Subjective - Date & Time of Evaluation Date of Evaluation: 09/06/16 Time of Evaluation: 21:00 - Subjective Subjective: PT SEEN AND EXAMINED, IS FOR TRACHEOSTOMY CHANGE AND THEN SHE WILL BE DISCHARGED BACK TO [facility] Objective - Vital Signs/Intake and Output Vital Signs (last 24 hours): Temp Pulse Resp BP Pulse Ox 98.5 F 86 20 142/85 95 09/06/16 15:35 09/06/16 15:35 09/06/16 15:35 09/06/16 15:35 09/06/16 15:35 Intake and Output: 09/06/16 09/07/16 18:59 06:59 Intake Total 100 Balance 100 - Medications Medications: Current Medications Albuterol/Ipratropium (Duoneb 3 Mg/0.5 Mg (3 Ml) Ud) 3 ml INH RQID [facility] Last Admin: 09/06/16 19:43 Dose: 3 ml Benzonatate (Tessalon Perles) 100 mg PO TID [facility] Last Admin: 09/06/16 17:47 Dose: 100 mg Enoxaparin Sodium (Lovenox) 60 mg SC DAILY [facility] Last Admin: 09/06/16 12:03 Dose: 60 mg Gabapentin (Neurontin) 800 mg PO TID [facility] Last Admin: 09/06/16 17:46 Dose: 800 mg Guaifenesin (Robitussin) 200 mg PO QID [facility] Last Admin: 09/06/16 21:46 Dose: 200 mg Colistimethate Sodium 150 mg/ (Sodium Chloride) 100 mls @ 100 mls/hr IV Q12H [facility] Last Admin: 09/06/16 17:46 Dose: 100 mls/hr Insulin Aspart (Novolog) 0 unit SC [facility] PRN Reason: Protocol Last Admin: 09/06/16 17:09 Dose: Not Given Insulin Glargine (Lantus) 30 unit SC [facility] Last Admin: 09/06/16 21:46 Dose: 30 u Lamotrigine (Lamictal) 100 mg PO Q12H [facility] Last Admin: 09/06/16 21:46 Dose: 100 mg Lorazepam (Ativan) 2 mg PO TID PRN PRN Reason: Anxiety Last Admin: 09/06/16 21:46 Dose: 2 mg Montelukast Sodium (Singulair) 10 mg PO [facility] Last Admin: 09/06/16 21:46 Dose: 10 mg Morphine Sulfate (Morphine) 2 mg IVP Q12 PRN PRN Reason: Pain, severe (8-10) Last Admin: 09/06/16 12:04 Dose: 2 mg Oxycodone/Acetaminophen (Percocet 5/325 Mg Tab) 1 tab PO Q4H PRN PRN Reason: Pain, moderate (4-7) Stop: 09/09/16 17:20 Last Admin: 09/06/16 21:46 Dose: 1 tab Pantoprazole Sodium (Protonix Susp) 40 mg PO DAILY [facility] Last Admin: 09/06/16 12:04 Dose: 40 mg Quetiapine Fumarate (Seroquel) 400 mg PO Q12H [facility] Last Admin: 09/06/16 04:58 Dose: Not Given Sertraline HCl (Zoloft) 100 mg PO [facility] Last Admin: 09/06/16 21:46 Dose: 100 mg Trazodone HCl (Desyrel) 150 mg PO [facility] Last Admin: 09/06/16 21:46 Dose: 150 mg - Labs Labs: 09/04/16 11:49 09/04/16 11:49 PT 11.4 SECONDS (9.7-12.2) 08/25/16 18:51 INR 1.0 08/25/16 18:51 APTT 24 SECONDS (21-34) 08/25/16 18:51 - Constitutional Appears: No Acute Distress - Head Exam Head Exam: ATRAUMATIC, NORMAL INSPECTION, NORMOCEPHALIC - Respiratory Exam Respiratory Exam: Clear to Ausculation Bilateral, NORMAL BREATHING PATTERN - Cardiovascular Exam Cardiovascular Exam: REGULAR RHYTHM, +S1, +S2. absent: Murmur Assessment and Plan (1) Syncope and collapse Status: Suspected (2) Chr obstructive pulmonary disease w/ acute lower respiratory infxn Status: Acute (3) Diabetes mellitus, insulin dependent (IDDM), uncontrolled Status: Chronic (4) Bipolar disorder Status: Chronic (5) HTN (hypertension) Status: Chronic
--- NOTE | 2016-09-06 22:36 | CP.PCM.PN ---
Subjective - Date & Time of Evaluation Date of Evaluation: 09/05/16 Time of Evaluation: 08:50 - Subjective Subjective: Patient seen today and doing better. Still looking for a visit from her family. Less depressed, no si and willing to go to [facility]. Objective - Vital Signs/Intake and Output Vital Signs (last 24 hours): Temp Pulse Resp BP Pulse Ox 98.5 F 86 20 142/85 95 09/06/16 15:35 09/06/16 15:35 09/06/16 15:35 09/06/16 15:35 09/06/16 15:35 Intake and Output: 09/06/16 09/07/16 18:59 06:59 Intake Total 100 Balance 100 - Medications Medications: Current Medications Albuterol/Ipratropium (Duoneb 3 Mg/0.5 Mg (3 Ml) Ud) 3 ml INH RQID [facility] Last Admin: 09/06/16 19:43 Dose: 3 ml Benzonatate (Tessalon Perles) 100 mg PO TID [facility] Last Admin: 09/06/16 17:47 Dose: 100 mg Enoxaparin Sodium (Lovenox) 60 mg SC DAILY [facility] Last Admin: 09/06/16 12:03 Dose: 60 mg Gabapentin (Neurontin) 800 mg PO TID [facility] Last Admin: 09/06/16 17:46 Dose: 800 mg Guaifenesin (Robitussin) 200 mg PO QID [facility] Last Admin: 09/06/16 21:46 Dose: 200 mg Colistimethate Sodium 150 mg/ (Sodium Chloride) 100 mls @ 100 mls/hr IV Q12H [facility] Last Admin: 09/06/16 17:46 Dose: 100 mls/hr Insulin Aspart (Novolog) 0 unit SC ACHS [facility] PRN Reason: Protocol Last Admin: 09/06/16 17:09 Dose: Not Given Insulin Glargine (Lantus) 30 unit SC HS [facility] Last Admin: 09/06/16 21:46 Dose: 30 u Lamotrigine (Lamictal) 100 mg PO Q12H [facility] Last Admin: 09/06/16 21:46 Dose: 100 mg Lorazepam (Ativan) 2 mg PO TID PRN PRN Reason: Anxiety Last Admin: 09/06/16 21:46 Dose: 2 mg Montelukast Sodium (Singulair) 10 mg PO HS [facility] Last Admin: 09/06/16 21:46 Dose: 10 mg Morphine Sulfate (Morphine) 2 mg IVP Q12 PRN PRN Reason: Pain, severe (8-10) Last Admin: 09/06/16 12:04 Dose: 2 mg Oxycodone/Acetaminophen (Percocet 5/325 Mg Tab) 1 tab PO Q4H PRN PRN Reason: Pain, moderate (4-7) Stop: 09/09/16 17:20 Last Admin: 09/06/16 21:46 Dose: 1 tab Pantoprazole Sodium (Protonix Susp) 40 mg PO DAILY [facility] Last Admin: 09/06/16 12:04 Dose: 40 mg Quetiapine Fumarate (Seroquel) 400 mg PO Q12H [facility] Last Admin: 09/06/16 04:58 Dose: Not Given Sertraline HCl (Zoloft) 100 mg PO [facility] Last Admin: 09/06/16 21:46 Dose: 100 mg Trazodone HCl (Desyrel) 150 mg PO [facility] Last Admin: 09/06/16 21:46 Dose: 150 mg - Labs Labs: 09/04/16 11:49 09/04/16 11:49 PT 11.4 SECONDS (9.7-12.2) 08/25/16 18:51 INR 1.0 08/25/16 18:51 APTT 24 SECONDS (21-34) 08/25/16 18:51 - Skin Additional comments: alert and orietned x3, s/p trach mood is brighter, sppech is still halting, affect is reactive. TP -coherent TC- no si or hi, no psychosis. Attention and memory fair. Insight and Judgment fair. Impulse control fair. Assessment and Plan (1) Syncope and collapse Status: Suspected (2) Chr obstructive pulmonary disease w/ acute lower respiratory infxn Status: Acute (3) Diabetes mellitus, insulin dependent (IDDM), uncontrolled Status: Chronic (4) Bipolar disorder Status: Chronic (5) HTN (hypertension) Status: Chronic
[2016-09-07] MEDS: Albuterol-Ipratrop 3 mg / 0.5 (3 ml) UD INH SCH ×4 (07:32→19:25)
[2016-09-07] MEDS: (Novolog) Insulin Aspart, Recombinant 100 u/ml 10 ml vial SC SCH ×5 (07:51→21:49)
[2016-09-07] MEDS: Enoxaparin 60 mg Syringe SC SCH (09:54)
[2016-09-07] MEDS: Pantoprazole 40 mg Susp UD PO SCH (09:54)
[2016-09-07] MEDS: guaiFENesin 200 mg/10 ml Syrup UD PO SCH ×4 (09:54→21:48)
[2016-09-07 16:45] VITALS: RESP 20
--- NOTE | 2016-09-07 17:25 | CP.PCM.PN ---
Subjective - Date & Time of Evaluation Date of Evaluation: 09/07/16 Time of Evaluation: 12:00 - Subjective Subjective: Pt seen and examine d today, comfortable ,c/o copious amount of secretions , thick white s/p trachea changed yesterday by Dr. Nicole jain febrile Objective - Vital Signs/Intake and Output Vital Signs (last 24 hours): Temp Pulse Resp BP Pulse Ox 98.6 F 108 H 20 132/88 96 09/07/16 16:00 09/07/16 16:00 09/07/16 16:00 09/07/16 16:00 09/07/16 16:00 Intake and Output: 09/07/16 09/07/16 06:59 18:59 Intake Total 530 Balance 530 - Medications Medications: Current Medications Albuterol/Ipratropium (Duoneb 3 Mg/0.5 Mg (3 Ml) Ud) 3 ml INH RQID [facility] Last Admin: 09/07/16 16:17 Dose: 3 ml Benzonatate (Tessalon Perles) 100 mg PO TID [facility] Last Admin: 09/07/16 13:01 Dose: 100 mg Enoxaparin Sodium (Lovenox) 60 mg SC DAILY [facility] Last Admin: 09/07/16 09:54 Dose: 60 mg Gabapentin (Neurontin) 800 mg PO TID [facility] Last Admin: 09/07/16 13:02 Dose: 800 mg Guaifenesin (Robitussin) 200 mg PO QID [facility] Last Admin: 09/07/16 13:06 Dose: 200 mg Colistimethate Sodium 150 mg/ (Sodium Chloride) 100 mls @ 100 mls/hr IV Q12H [facility] Last Admin: 09/07/16 13:53 Dose: 100 mls/hr Insulin Aspart (Novolog) 0 unit SC ACHS [facility] PRN Reason: Protocol Last Admin: 09/07/16 12:30 Dose: 2 unit Insulin Glargine (Lantus) 30 unit SC HS [facility] Last Admin: 09/06/16 21:46 Dose: 30 u Lamotrigine (Lamictal) 100 mg PO Q12H [facility] Last Admin: 09/07/16 09:54 Dose: 100 mg Lorazepam (Ativan) 2 mg PO TID PRN PRN Reason: Anxiety Last Admin: 09/06/16 21:46 Dose: 2 mg Montelukast Sodium (Singulair) 10 mg PO HS [facility] Last Admin: 09/06/16 21:46 Dose: 10 mg Morphine Sulfate (Morphine) 2 mg IVP Q12 PRN PRN Reason: Pain, severe (8-10) Last Admin: 09/07/16 10:04 Dose: 2 mg Oxycodone/Acetaminophen (Percocet 5/325 Mg Tab) 1 tab PO Q4H PRN PRN Reason: Pain, moderate (4-7) Stop: 09/09/16 17:20 Last Admin: 09/06/16 21:46 Dose: 1 tab Pantoprazole Sodium (Protonix Susp) 40 mg PO DAILY [facility] Last Admin: 09/07/16 09:54 Dose: 40 mg Quetiapine Fumarate (Seroquel) 400 mg PO Q12H [facility] Last Admin: 09/07/16 12:52 Dose: 400 mg Sertraline HCl (Zoloft) 100 mg PO [facility] Last Admin: 09/06/16 21:46 Dose: 100 mg Trazodone HCl (Desyrel) 150 mg PO [facility] Last Admin: 09/06/16 21:46 Dose: 150 mg - Labs Labs: 09/04/16 11:49 09/04/16 11:49 PT 11.4 SECONDS (9.7-12.2) 08/25/16 18:51 INR 1.0 08/25/16 18:51 APTT 24 SECONDS (21-34) 08/25/16 18:51 Assessment and Plan - Assessment and Plan (Free Text) Assessment: A/P 60 yr old female admitted for COPD exacerbation, Syncope, Pneumonia, s/p trache changed yesterday sputum culture - + for psuedomonus and sensitive to colistin an dpt started on colistin 09/05/16 and tolerating Pt accepted at [facility] f for rehab an dantibiotics and as per SW pt will continue to recive colistin fo r7 more days D/W Dr. Cheo gar, cleared for for discharge to [facility] for cloistin from ID stand point and monitor BMP D/W Dr. Khan, stable ofr discharge to [facility] and Dr. Khan will follow the patient at [facility] Discharge plan discussed with patient, who understand and and agrees with plan as per CM no bed available will transfer patient when bed available
--- NOTE | 2016-09-07 18:29 | CP.PCM.PN ---
Subjective - Date & Time of Evaluation Date of Evaluation: 09/07/16 Time of Evaluation: 20:00 - Subjective Subjective: Pt seen and examine d today, comfortable ,c/o copious amount of secretions , thick white s/p trachea changed yesterday by Dr. Nicole jain febrile wiating for disposition to LTAC Objective - Vital Signs/Intake and Output Vital Signs (last 24 hours): Temp Pulse Resp BP Pulse Ox 98.6 F 108 H 20 132/88 96 09/07/16 16:00 09/07/16 16:00 09/07/16 16:00 09/07/16 16:00 09/07/16 16:00 Intake and Output: 09/07/16 09/07/16 06:59 18:59 Intake Total 530 Balance 530 - Medications Medications: Current Medications Albuterol/Ipratropium (Duoneb 3 Mg/0.5 Mg (3 Ml) Ud) 3 ml INH RQID [facility] Last Admin: 09/07/16 16:17 Dose: 3 ml Benzonatate (Tessalon Perles) 100 mg PO TID [facility] Last Admin: 09/07/16 17:36 Dose: 100 mg Enoxaparin Sodium (Lovenox) 60 mg SC DAILY [facility] Last Admin: 09/07/16 09:54 Dose: 60 mg Gabapentin (Neurontin) 800 mg PO TID [facility] Last Admin: 09/07/16 17:36 Dose: 800 mg Guaifenesin (Robitussin) 200 mg PO QID [facility] Last Admin: 09/07/16 17:36 Dose: 200 mg Colistimethate Sodium 150 mg/ (Sodium Chloride) 100 mls @ 100 mls/hr IV Q12H [facility] Last Admin: 09/07/16 13:53 Dose: 100 mls/hr Insulin Aspart (Novolog) 0 unit SC ACHS [facility] PRN Reason: Protocol Last Admin: 09/07/16 17:35 Dose: 3 unit Insulin Glargine (Lantus) 30 unit SC HS [facility] Last Admin: 09/06/16 21:46 Dose: 30 u Lamotrigine (Lamictal) 100 mg PO Q12H [facility] Last Admin: 09/07/16 09:54 Dose: 100 mg Lorazepam (Ativan) 2 mg PO TID PRN PRN Reason: Anxiety Last Admin: 09/06/16 21:46 Dose: 2 mg Montelukast Sodium (Singulair) 10 mg PO HS [facility] Last Admin: 09/06/16 21:46 Dose: 10 mg Morphine Sulfate (Morphine) 2 mg IVP Q12 PRN PRN Reason: Pain, severe (8-10) Last Admin: 09/07/16 10:04 Dose: 2 mg Oxycodone/Acetaminophen (Percocet 5/325 Mg Tab) 1 tab PO Q4H PRN PRN Reason: Pain, moderate (4-7) Stop: 09/09/16 17:20 Last Admin: 09/06/16 21:46 Dose: 1 tab Pantoprazole Sodium (Protonix Susp) 40 mg PO DAILY [facility] Last Admin: 09/07/16 09:54 Dose: 40 mg Quetiapine Fumarate (Seroquel) 400 mg PO Q12H [facility] Last Admin: 09/07/16 12:52 Dose: 400 mg Sertraline HCl (Zoloft) 100 mg PO [facility] Last Admin: 09/06/16 21:46 Dose: 100 mg Trazodone HCl (Desyrel) 150 mg PO [facility] Last Admin: 09/06/16 21:46 Dose: 150 mg - Labs Labs: 09/04/16 11:49 09/04/16 11:49 PT 11.4 SECONDS (9.7-12.2) 08/25/16 18:51 INR 1.0 08/25/16 18:51 APTT 24 SECONDS (21-34) 08/25/16 18:51 Assessment and Plan (1) Syncope and collapse Status: Suspected (2) Chr obstructive pulmonary disease w/ acute lower respiratory infxn Status: Acute (3) Diabetes mellitus, insulin dependent (IDDM), uncontrolled Status: Chronic (4) Bipolar disorder Status: Chronic (5) HTN (hypertension) Status: Chronic
[2016-09-07] MEDS: Oxycodone/Acetaminophen 5/325 mg Tab PO PRN (19:09)
[2016-09-07] MEDS: (Lantus) Insulin Glargine, Recombinant SC SCH (21:49)
[2016-09-08] MEDS: Albuterol-Ipratrop 3 mg / 0.5 (3 ml) UD INH SCH ×3 (09:12→16:39)
--- NOTE | 2016-09-08 09:43 | PN ---
DATE: 09/07/2016 SUBJECTIVE: The patient seen in her room. Denies any active suicidal ideation, less depressed. She had a recent change of her trach collar and complaining of mild pain, but other than that psych de la cruz, she is more stable. The patient is awaiting bed to go to [facility]. She also states that her family will visit her tonight. She has been compliant with psych medications. No behavioral problems. She has been off one-to-one for many days. REVIEW OF SYSTEMS: The patient is alert and oriented x3, seen in her room, resting comfortably in no respiratory distress. PHYSICAL EXAMINATION VITAL SIGNS: Temperature is 98.6, pulse rate is 108, blood pressure is 132/88, respirations 20, and oxygen saturation 96% on trach collar. SKIN: no pruritus or diaphoresis. HEENT: No headache, no dizziness. NECK: s/p Trach collar. RESPIRATORY: No dyspnea. CARDIAC: No chest pain. GASTROINTESTINAL: She is eating well. EXTREMITIES: No tremors. The patient is moving extremities. MUSCULOSKELETAL: Generalized weakness. NEUROLOGIC: Alert at this time and oriented x 3. MENTAL STATUS EXAMINATION: GENERAL: An obese female who is alert and oriented x3. The patient'is speech is halting secondary to her trach but able to express her thoughts. AFFECT: Reactive. MOOD: Brighter and less depressed. THOUGHT PROCESS: Coherent. THOUGHT CONTENT: No paranoia. No hallucinations. No suicidal or homicidal ideation. ATTENTION AND MEMORY: Seems to be fair. INSIGHT AND JUDGEMENT: Fair. IMPULSE CONTROL: Fair. IMPRESSION: 1. Schizoaffective disorder, bipolar type. 2. History of respiratory failure as well as status post tracheostomy. 3. History of obesity. 4. History of hypertension. 5. Pneumonia. 6. History of chronic obstructive pulmonary disease. 7. Syncope. 8. Chronic back pain. PLAN AND RECOMMENDATION: The patient seen, medications reviewed. Continue present psychiatric medications. The patient seems to be doing well. Continue Ativan 2 mg p.o. b.i.d., lamotrigine 100 mg p.o. b.i.d., and then morphine 2 mg IV q.12 p.r.n. for back pain. Continue Neurontin 800 mg p.o. 3 times a day, Seroquel 400 mg q.12 hours and Zoloft 100 mg at bedtime. Psych de la cruz, the patient is stable to go to [facility] for subacute rehab once a bed is available. Continue treatment plan as outlined. Wellington Dejesus MD MTDAndres
[2016-09-08] MEDS: guaiFENesin 200 mg/10 ml Syrup UD PO SCH ×3 (10:22→17:57)
[2016-09-08] MEDS: Enoxaparin 60 mg Syringe SC SCH (10:22)
[2016-09-08] MEDS: (Novolog) Insulin Aspart, Recombinant 100 u/ml 10 ml vial SC SCH ×3 (10:22→17:56)
[2016-09-08] MEDS: Pantoprazole 40 mg Susp UD PO SCH (10:23)
--- NOTE | 2016-09-08 12:37 | CARD ---
APPROVED REPORT EKG Measurement Heart [id number] [id number] <Conclusion> Sinus rhythm with frequent premature ventricular complexes Voltage criteria for left ventricular hypertrophy Abnormal ECG
--- NOTE | 2016-09-08 13:46 | CP.PCM.PN ---
Subjective - Date & Time of Evaluation Date of Evaluation: 09/08/16 Time of Evaluation: 13:42 - Subjective Subjective: Patient seen today and states her family did not come last night. Doing better psych de la cruz and denies any si or hi. Awaiting bed for LINDSEY at [facility]. MSE- obese female, seen in her room, eating well despite having a trach collar, speech is halting but not in respiratory distress. affect is reactive. mood is less anxious and depressed. TP- coherent TC- no si or hi, no psychosis. Attention and memory limited a times. Insight and Judgment fair. Impulse control fair. Objective - Vital Signs/Intake and Output Vital Signs (last 24 hours): Temp Pulse Resp BP Pulse Ox 97.3 F L 84 20 132/81 95 09/08/16 08:06 09/08/16 08:06 09/08/16 08:06 09/08/16 08:06 09/08/16 08:06 Intake and Output: 09/08/16 09/08/16 06:59 18:59 Intake Total 400 Balance 400 - Medications Medications: Current Medications Albuterol/Ipratropium (Duoneb 3 Mg/0.5 Mg (3 Ml) Ud) 3 ml INH RQID [facility] Last Admin: 09/08/16 12:54 Dose: 3 ml Benzonatate (Tessalon Perles) 100 mg PO TID [facility] Last Admin: 09/08/16 10:22 Dose: 100 mg Enoxaparin Sodium (Lovenox) 60 mg SC DAILY [facility] Last Admin: 09/08/16 10:22 Dose: 60 mg Gabapentin (Neurontin) 800 mg PO TID [facility] Last Admin: 09/08/16 10:22 Dose: 800 mg Guaifenesin (Robitussin) 200 mg PO QID [facility] Last Admin: 09/08/16 10:22 Dose: 200 mg Colistimethate Sodium 150 mg/ (Sodium Chloride) 100 mls @ 100 mls/hr IV Q12H [facility] Last Admin: 09/08/16 01:26 Dose: 100 mls/hr Insulin Aspart (Novolog) 0 unit SC ACHS [facility] PRN Reason: Protocol Last Admin: 09/08/16 10:22 Dose: 2 unit Insulin Glargine (Lantus) 30 unit SC [facility] Last Admin: 09/07/16 21:49 Dose: 30 units Lamotrigine (Lamictal) 100 mg PO Q12H [facility] Last Admin: 09/08/16 10:22 Dose: 100 mg Lorazepam (Ativan) 2 mg PO TID PRN PRN Reason: Anxiety Last Admin: 09/08/16 03:52 Dose: 2 mg Montelukast Sodium (Singulair) 10 mg PO [facility] Last Admin: 09/07/16 21:49 Dose: 10 mg Morphine Sulfate (Morphine) 2 mg IVP Q12 PRN PRN Reason: Pain, severe (8-10) Last Admin: 09/08/16 03:53 Dose: 2 mg Oxycodone/Acetaminophen (Percocet 5/325 Mg Tab) 1 tab PO Q4H PRN PRN Reason: Pain, moderate (4-7) Stop: 09/09/16 17:20 Last Admin: 09/07/16 19:09 Dose: 1 tab Pantoprazole Sodium (Protonix Susp) 40 mg PO DAILY [facility] Last Admin: 09/08/16 10:23 Dose: 40 mg Quetiapine Fumarate (Seroquel) 400 mg PO Q12H [facility] Last Admin: 09/08/16 01:26 Dose: 400 mg Sertraline HCl (Zoloft) 100 mg PO [facility] Last Admin: 09/07/16 21:49 Dose: 100 mg Trazodone HCl (Desyrel) 150 mg PO [facility] Last Admin: 09/07/16 21:48 Dose: 150 mg - Labs Labs: 09/04/16 11:49 09/04/16 11:49 PT 11.4 SECONDS (9.7-12.2) 08/25/16 18:51 INR 1.0 08/25/16 18:51 APTT 24 SECONDS (21-34) 08/25/16 18:51 - Constitutional Appears: Non-toxic, No Acute Distress, Chronically Ill - Head Exam Head Exam: NORMOCEPHALIC - Eye Exam Eye Exam: Normal appearance Pupil Exam: NORMAL ACCOMODATION - ENT Exam ENT Exam: Normal Exam - Neck Exam Additional comments: s/p trach collar - Respiratory Exam Additional comments: not in respiratory distress - Cardiovascular Exam Additional comments: no chest pain - GI/Abdominal Exam Additional comments: has very good appetite, no abdominal pain - Exam Additional comments: no dysuria - Back Exam Additional comments: moving her extremities, no tremors - Neurological Exam Neurological Exam: Alert, Oriented x3 - Psychiatric Exam Psychiatric exam: Anxious, Depressed - Skin Skin Exam: Normal Color Assessment and Plan - Assessment and Plan (Free Text) Assessment: Schizoaffective disorder- bipolar type s/p respiratory failure, s/p trach hx of pneumonia, DM, obesity, sepsis Plan: Continue antibiotics and present psych meds. Awaiting bed for LINDSEY at [facility]. Psych de la cruz, stable to go for LINDSEY once bed is available.
[2016-09-08] MEDS: Oxycodone/Acetaminophen 5/325 mg Tab PO PRN (14:37)
[2016-09-08 16:18] VITALS: BP 120/84; PULSE 90; TEMP 98.3; O2SAT 100
--- NOTE | 2016-09-08 23:01 | CP.PCM.DIS ---
Provider - Provider Date of Admission: 08/25/16 21:06 Attending physician: Ad Khan MD Time Spent in preparation of Discharge (in minutes): 35 Diagnosis - Discharge Diagnosis (1) Syncope and collapse Status: Suspected (2) Chr obstructive pulmonary disease w/ acute lower respiratory infxn Status: Acute (3) Diabetes mellitus, insulin dependent (IDDM), uncontrolled Status: Chronic (4) Bipolar disorder Status: Chronic (5) HTN (hypertension) Status: Chronic Hospital Course - Lab Results Lab Results: Micro Results 09/02/16 19:45 Trachasp Gram Stain - Final 09/02/16 19:45 Trachasp Sputum Culture - Final Pseudomonas Aeruginosa 08/30/16 15:00 Blood-Venous Blood Culture - Final NO GROWTH AFTER 5 DAYS 08/30/16 15:00 Blood-Venous Gram Stain - Final TEST NOT PERFORMED 08/26/16 06:49 Trachasp Gram Stain - Final 08/26/16 06:49 Trachasp Sputum Culture - Final Proteus Mirabilis 08/30/16 06:00 Urine Urine Culture - Final 10-50,000 CFU/ML. MULTIPLE SPECIES. PROBABLE CONTAMINATION. 08/26/16 00:28 Nose MRSA Culture (Admit) - Final MRSA DETECTED Most Recent Lab Values WBC 11.2 K/uL (4.8-10.8) H D 09/04/16 11:49 RBC 4.45 Mil/uL (3.80-5.20) 09/04/16 11:49 Hgb 11.6 g/dL (11.0-16.0) 09/04/16 11:49 Hct 35.3 % (34.0-47.0) 09/04/16 11:49 MCV 79.4 fL (81.0-99.0) L 09/04/16 11:49 MCH 26.0 pg (27.0-31.0) L 09/04/16 11:49 MCHC 32.8 g/dL (33.0-37.0) L 09/04/16 11:49 RDW 16.0 % (11.5-14.5) H 09/04/16 11:49 Plt Count 133 K/uL (130-400) 09/04/16 11:49 MPV 8.4 fL (7.2-11.7) 09/04/16 11:49 Neut % (Auto) 72.3 % (50.0-75.0) 09/04/16 11:49 Lymph % (Auto) 19.6 % (20.0-40.0) L 09/04/16 11:49 [place] % (Auto) 7.7 % (0.0-10.0) 09/04/16 11:49 Eos % (Auto) 0.2 % (0.0-4.0) 09/04/16 11:49 Baso % (Auto) 0.2 % (0.0-2.0) 09/04/16 11:49 Neut # 8.1 K/uL (1.8-7.0) H 09/04/16 11:49 Lymph # 2.2 K/uL (1.0-4.3) 09/04/16 11:49 [place] # 0.9 K/uL (0.0-0.8) H 09/04/16 11:49 Eos # 0.0 K/uL (0.0-0.7) 09/04/16 11:49 Baso # 0.0 K/uL (0.0-0.2) 09/04/16 11:49 Neutrophils % (Manual) 92 % (50-75) H 08/26/16 06:46 Lymphocytes % (Manual) 7 % (20-40) L 08/26/16 06:46 Monocytes % (Manual) 1 % (0-10) 08/26/16 06:46 Differential Comment 08/31/16 07:11 Platelet Estimate Normal (NORMAL) 08/26/16 06:46 Anisocytosis (manual) Slight 08/26/16 06:46 ESR 25 mm/hr (0-20) H 08/31/16 07:11 PT 11.4 SECONDS (9.7-12.2) 08/25/16 18:51 INR 1.0 08/25/16 18:51 APTT 24 SECONDS (21-34) 08/25/16 18:51 Puncture Site Rra 08/25/16 19:10 pCO2 42 mm/Hg (35-45) 08/25/16 19:10 pO2 219 mm/Hg (80-100) H 08/25/16 19:10 HCO3 23.6 mmol/L (21-28) 08/25/16 19:10 ABG pH 7.36 (7.35-7.45) 08/25/16 19:10 ABG Total CO2 25.0 mmol/L (22-28) 08/25/16 19:10 ABG O2 Saturation 100.1 % (95-98) H 08/25/16 19:10 ABG Base Excess -1.8 mmol/L (-2.0-3.0) 08/25/16 19:10 Rob Test A 08/25/16 19:10 ABG Potassium 4.3 mmol/L (3.6-5.2) 08/25/16 19:10 A-a O2 Difference 442.0 mm/Hg 08/25/16 19:10 Respiratory Index 2.0 08/25/16 19:10 Sodium 139.0 mmol/l (132-148) 08/25/16 19:10 Chloride 107.0 mmol/L (98-107) 08/25/16 19:10 Glucose 347 mg/dl (65-105) H 08/25/16 19:10 Lactate 2.5 mmol/L (0.7-2.1) H 08/25/16 19:10 Mechanical Rate 14 08/25/16 19:10 FiO2 100.0 % 08/25/16 19:10 Tidal Volume 450 08/25/16 19:10 PEEP 5 08/25/16 19:10 Sodium 142 mmol/L (132-148) 09/04/16 11:49 Potassium 4.0 mmol/L (3.6-5.2) 09/04/16 11:49 Chloride 97 mmol/L (98-107) L 09/04/16 11:49 Carbon Dioxide 35 mmol/L (22-30) H 09/04/16 11:49 Anion Gap 14 (10-20) 09/04/16 11:49 BUN 13 mg/dL (7-17) 09/04/16 11:49 Creatinine 0.8 MG/DL (0.7-1.2) 09/04/16 11:49 Est GFR ( Amer) > 60 09/04/16 11:49 Est GFR (Non-Af Amer) > 60 09/04/16 11:49 POC Glucose (mg/dL) 287 mg/dL (65-110) H 09/08/16 16:08 Random Glucose 253 mg/dL (65-105) H 09/04/16 11:49 Calcium 9.4 mg/dl (8.6-10.4) 09/04/16 11:49 Phosphorus 3.5 mg/dL (2.5-4.5) 08/28/16 06:28 Magnesium 1.7 mg/dL (1.6-2.3) 08/28/16 06:28 Total Bilirubin 0.5 mg/dL (0.2-1.3) 09/04/16 11:49 Direct Bilirubin 0.5 mg/dL (0.0-0.4) H 08/31/16 07:11 AST 18 U/L (14-36) 09/04/16 11:49 ALT 22 U/L (9-52) 09/04/16 11:49 Alkaline Phosphatase 101 U/L (38-126) 09/04/16 11:49 Total Creatine Kinase 59 U/L (30-135) 08/25/16 18:51 CK-MB (Mass) 0.48 ng/mL (0.0-3.38) 08/25/16 18:51 Troponin I < 0.0120 ng/mL (0.00-0.120) 08/25/16 18:51 C-React Prot High Sens > 15.00 mg/L (1.00-3.00) H 08/31/16 07:11 NT-Pro-B Natriuret Pep 74.1 pg/mL (0-900) 08/25/16 18:51 Total Protein 7.4 g/dL (6.3-8.3) 09/04/16 11:49 Albumin 3.7 g/dL (3.5-5.0) 09/04/16 11:49 Globulin 3.8 gm/dL (2.2-3.9) 09/04/16 11:49 Albumin/Globulin Ratio 1.0 (1.0-2.1) 09/04/16 11:49 Arterial Blood Potassium 4.3 mmol/L (3.6-5.2) 08/25/16 19:10 Urine Color Yellow (YELLOW) 08/31/16 07:08 Urine Clarity Hazy (Clear) 08/31/16 07:08 Urine pH 5.0 (5.0-8.0) 08/31/16 07:08 Ur Specific [place] 1.020 (1.003-1.030) 08/31/16 07:08 Urine Protein Negative mg/dL (NEGATIVE) 08/31/16 07:08 Urine Glucose (UA) Normal mg/dL (Normal) 08/31/16 07:08 Urine Ketones Negative mg/dL (NEGATIVE) 08/31/16 07:08 Urine Blood Negative (NEGATIVE) 08/31/16 07:08 Urine Nitrate Positive (NEGATIVE) H 08/31/16 07:08 Urine Bilirubin Negative (NEGATIVE) 08/31/16 07:08 Urine Urobilinogen Normal mg/dL (0.2-1.0) 08/31/16 07:08 Ur Leukocyte Esterase 2+ Brian/uL (Negative) H 08/31/16 07:08 Urine WBC (Auto) 12 /hpf (0-5) H 08/31/16 07:08 Urine RBC (Auto) 3 /hpf (0-3) 08/31/16 07:08 Ur Squamous Epith Cells 2 /hpf (0-5) 08/31/16 07:08 Urine Bacteria Many (<OCC) H 08/31/16 07:08 - Hospital Course Hospital Course: Transferred to [facility] care Discharge Exam - Head Exam Head Exam: NORMOCEPHALIC - Eye Exam Eye Exam: EOMI, Normal appearance, PERRL Pupil Exam: NORMAL ACCOMODATION, PERRL - ENT Exam ENT Exam: Mucous Membranes Moist - Respiratory Exam Respiratory Exam: Clear to PA & Lateral, NORMAL BREATHING PATTERN - Cardiovascular Exam Cardiovascular Exam: REGULAR RHYTHM, +S1, +S2 - GI/Abdominal Exam GI & Abdominal Exam: Normal Bowel Sounds - Neurological Exam Neurological exam: Alert, CN II-XII Intact, Normal Gait, Oriented x3, Reflexes Normal - Psychiatric Exam Psychiatric exam: Normal Affect, Normal Mood - Skin Skin Exam: Dry, Intact, Normal Color, Warm Discharge Plan - Follow Up Plan Condition: STABLE Disposition: TRANSF TO SNF Instructions: Tracheostomy Care (DC), Heart Healthy Diet (DC), Syncope (DC), COPD (Chronic Obstructive Pulmonary Disease) (DC), Meal Planning with Diabetes Exchanges (DC), Low Sodium Diet (DC), Pneumonia (DC) Additional Instructions: Please admit patient under Dr. Khan service, Please call Dr. Khan upon patient arrival to the facility continue colistin for 7 more days CBC, CMP on Sunday continue all other medication as per Med. REc.
--- NOTE | 2016-09-21 10:15 | PCM.OP ---
Dr. Cali Rivera dictating operative note on Carin Moser. Medical record: [id number] DOS:09/06/16 Preoperative Diagnosis: 1)Respiratory failure post surgery with percutaneous tracheostomy Postoperative Diagnosis: Surgeon: Cali Rivera Anesthesia: General Blood Loss: 3 cc Patient is a 60 year old female with a chronic tracheostomy who has had an indwelling trach tube times 2 years and has been asked to change to a larger and newer trach tube. Procedure: Patient was taken into the operative room, IV sedation was administered, and she was placed in supine position with the neck expanded. The area was prepped and draped, previous tracheostomy was removed using a percutaneous tracheostomy insertion kit. A 6 [place] Shiley fenestrated was inserted over the introducer, into the trachea, and the balloon was inflated. There was good air exchange noted by anesthesia. The patient tolerated the procedure well and was taken to the room in stable condition. JUDY
== END 2016-09-08 18:28 | DRG 541 ==
LOC: C.ER 18:24 → C.6T 21:06 → C.9I 23:22 → C.5T 09-03 20:45
PROVIDERS: ADMIT Internal Medicine; ATTEND Internal Medicine
PROC: 0B21XFZ Change Tracheostomy Device in Trachea, External Approach (ICD-10-PCS; principal; 2016-09-06 12:30)
DX: J44.0 Chronic obstructive pulmonary disease with (acute) lower respiratory infection (principal); J18.9 Pneumonia, unspecified organism; I11.0 Hypertensive heart disease with heart failure; Z93.0 Tracheostomy status; I50.9 Heart failure, unspecified; R45.851 Suicidal ideations; J45.901 Unspecified asthma with (acute) exacerbation; E11.65 Type 2 diabetes mellitus with hyperglycemia; F25.0 Schizoaffective disorder, bipolar type; J44.1 Chronic obstructive pulmonary disease with (acute) exacerbation; G89.29 Other chronic pain; M54.9 Dorsalgia, unspecified; E66.9 Obesity, unspecified; G47.33 Obstructive sleep apnea (adult) (pediatric); J34.2 Deviated nasal septum; Z16.24 Resistance to multiple antibiotics; Z86.73 Personal history of transient ischemic attack (TIA), and cerebral infarction without residual deficits; Z87.01 Personal history of pneumonia (recurrent); Z79.4 Long term (current) use of insulin; Z91.5 Personal history of self-harm

== ENCOUNTER 2016-12-01 22:18 | Inpatient (IN) | payer OTHER ==
[2016-12-01 22:19] VITALS: BMI 45.6
[2016-12-01 23:01] LABS: BASO # 0.1 K/uL (0.0-0.2); BASO % 0.7 % (0.0-2.0); HEMATOCRIT 39.3 % (34.0-47.0); LYMPH # 1.9 K/uL (1.0-4.3); LYMPH % 11.7 % (20.0-40.0); MEAN CELL VOLUME 78.8 fL (81.0-99.0); MEAN CORPUSCULAR HEMOGLOBIN 26.1 pg (27.0-31.0); MEAN CORPUSCULAR HGB CONC 33.1 g/dL (33.0-37.0); MEAN PLATELET VOLUME 8.2 fL (7.2-11.7); MONO % 6.2 % (0.0-10.0); NRBC % 0.1 % (0.0-2.0); RED CELL DISTRIBUTION WIDTH 14.5 % (11.5-14.5); WHITE BLOOD COUNT 16.5 K/uL (4.8-10.8)
[2016-12-01 23:06] LABS: CHLORIDE 99 mmol/L (98-107)
[2016-12-01 23:07] LABS: SODIUM 134 mmol/L (132-148)
[2016-12-01 23:08] LABS: POTASSIUM 5.2 mmol/L (3.6-5.2)
[2016-12-01 23:09] LABS: GFR AFRICAN-AMERICAN > 60
[2016-12-01 23:10] LABS: ALB/GLOB RATIO 0.9 (1.0-2.1); ALKALINE PHOSPHATASE 131 U/L (38-126); ALT/SGPT 11 U/L (9-52); AST/SGOT 28 U/L (14-36); BILIRUBIN,TOTAL 0.8 mg/dL (0.2-1.3); BLOOD UREA NITROGEN 26 mg/dL (7-17); CALCIUM 9.5 mg/dl (8.6-10.4); CARBON DIOXIDE 20 mmol/L (22-30); GLUCOSE,RANDOM 253 mg/dL (65-105); TOTAL PROTEIN 9.5 g/dL (6.3-8.3)
[2016-12-01] MEDS ORDERED: MethylPREDNISolone 40 mg Vial IVP STA (23:33)
[2016-12-01] MEDS ORDERED: Albuterol-Ipratrop 3 mg / 0.5 (3 ml) UD IH STA (23:33)
[2016-12-02] MEDS ORDERED: Albuterol-Ipratrop 3 mg / 0.5 (3 ml) UD ONE ×3 (00:01)
--- NOTE | 2016-12-02 01:31 | C.PDOC ---
History Of Present Illness 61 y/o F c PMHx COPD/asthma, s/p trach on home O2 at night and as needed during day p/w dyspnea x 1 week similar to previous COPD exacerbations and with cough productive of beige sputum. Denies chest pain, fever, vomiting. Time Seen by Provider: 12/01/16 23:25 Chief Complaint (Nursing): Shortness Of Breath Past Medical History Vital Signs: Last Vital Signs Temp 98.0 F 12/01/16 22:31 Pulse 95 H 12/01/16 22:31 Resp 22 12/01/16 22:54 BP 133/66 12/01/16 22:31 Pulse Ox 95 12/02/16 01:32 - Medical History PMH: Anxiety, Asthma, Bipolar Disorder, Bronchitis, CHF, COPD, Depression, Emphysema, HTN, Pneumonia, Seizures, Sleep Apnea Denies: Arthritis, HIV, Hypercholesterolemia, Hypothyroidism, Chronic Kidney Disease, Rheumatoid Arthritis, Sexually Transmitted Disease Surgical History: Appendectomy, Cholecystectomy - [facility] Procedures ASSISTANCE WITH RESPIRATORY VENTILATION, <24 HRS, CPAP (03/14/16) CENTRAL VENOUS CATHETER PLACEMENT WITH GUIDANCE (10/24/14) CHANGE TRACHEOSTOMY DEVICE IN TRACHEA, EXTERNAL APPROACH (08/25/16) CONTINUOUS INVASIVE MECHANICAL VENTILATION <96 CONSEC HRS (03/07/14) ENTERAL INFUSION OF CONCENTRATED NUT. SUBSTANCES (09/17/12) INSERT ENDOTRACHEAL TUBE (09/17/12) INSERTION OF INFUSION DEV INTO SUP VENA CAVA, PERC APPROACH (12/03/15) INTRODUCE OF OTH THERAP SUBST INTO RESP TRACT, VIA OPENING (05/03/15) NEBULIZER THERAPY (09/17/12) RESPIRATORY VENTILATION, 24-96 CONSECUTIVE HOURS (03/14/16) Family History: States: Unknown Family Hx - Social History Hx Tobacco Use: No Hx Alcohol Use: No Hx Substance Use: No - Immunization History Hx Tetanus Toxoid Vaccination: No Hx Influenza Vaccination: No Hx Pneumococcal Vaccination: No Review Of Systems Except As Marked, All Systems Reviewed And Found Negative. Constitutional: Negative for: Fever Cardiovascular: Negative for: Chest Pain Physical Exam - Physical Exam Additional Physical Exam Comments: Appears: Well, Non-toxic, In mild distress Head: Normacephalic Oral Mucosa: Moist Neck: Other (trach in place, no secretions noted) Cardiovascular: Rhythm Regular Respiratory: No Accessory Muscle Use, No Rales, No Rhonchi, Wheezing diffusely Gastrointestinal/Abdominal: Normal Exam, Bowel Sounds, Soft, No Tenderness Extremity: Normal ROM, No Pedal Edema, No Calf Tenderness Pulses: Left Dorsalis Pedis: Normal, Right Dorsalis Pedis: Normal Neurological/Psych: Alert, no focal deficit. ED Course And Treatment - Laboratory Results Result Diagrams: 12/01/16 22:55 12/01/16 22:55 O2 Sat by Pulse Oximetry: 95 Medical Decision Making Medical Decision Making: FINDINGS: Limitations: Examination again limited by body habitus and suboptimal inspiration. Lungs: Increased interstitial markings may reflect atypical infectious process or pulmonary edema. No large consolidation, large effusion or pneumothorax. Pleural space: See above. Heart: Cardiac silhouette appears within normal limits. Mediastinum: Unremarkable. Bones/joints: Unremarkable. Tubes, lines and devices: Tracheostomy tube is noted in position. IMPRESSION: 1. Examination again limited by body habitus and suboptimal inspiration. 2. Increased interstitial markings may reflect atypical infectious process or pulmonary edema. 3. No large consolidation, large effusion or pneumothorax EKG NSR 70 bpm, no ST/T wave changes. IV antibiotics initiated. Dr. Khan accepts patient to his service. Disposition Discussed With : Ad Khan Doctor Will See Patient In The: Hospital - Disposition Disposition: HOSPITALIZED Disposition Time: 01:49 Condition: FAIR Forms: [facility] (Guatemalan) - Clinical Impression Clinical Impression: COPD exacerbation
[2016-12-02] MEDS ORDERED: Moxifloxacin IV 400mg/250ml NS 400 MG/250 ML BAG IVPB ONE (02:26)
[2016-12-02] MEDS ORDERED: Azithromycin 500 MG in Sodium Chloride 0.9% 250 ML IVPB STA (02:29)
[2016-12-02] MEDS ORDERED: Azithromycin 500mg/250ML NS 500 MG/250 ML BAG IVPB ONE (03:17)
[2016-12-02] MEDS: Oxycodone/Acetaminophen 5/325 mg Tab PO PRN ×2 (03:46→15:37)
[2016-12-02] MEDS ORDERED: Oxycodone/Acetaminophen 5/325 mg Tab ONE (03:47)
--- NOTE | 2016-12-02 04:06 | RAD ---
EXAM: XR Chest, 1 View CLINICAL HISTORY: 61 years old, female; Pain; Chest pain; Additional info: SOB TECHNIQUE: Frontal view of the chest. COMPARISON: CR - CHEST ONE VIEW 06/17/2015 9:05:04 PM FINDINGS: Limitations: Examination again limited by body habitus and suboptimal inspiration. Lungs: Increased interstitial markings may reflect atypical infectious process or pulmonary edema. No large consolidation, large effusion or pneumothorax. Pleural space: See above. Heart: Cardiac silhouette appears within normal limits. Mediastinum: Unremarkable. Bones/joints: Unremarkable. Tubes, lines and devices: Tracheostomy tube is noted in position. IMPRESSION: 1. Examination again limited by body habitus and suboptimal inspiration. 2. Increased interstitial markings may reflect atypical infectious process or pulmonary edema. 3. No large consolidation, large effusion or pneumothorax.
[2016-12-02] MEDS: Albuterol-Ipratrop 3 mg / 0.5 (3 ml) UD INH SCH ×3 (07:30→19:27)
[2016-12-02] MEDS: (Novolog) Insulin Aspart, Recombinant 100 u/ml 10 ml vial SC SCH ×4 (08:44→21:28)
[2016-12-02] MEDS: guaiFENesin 200 mg/10 ml Syrup UD PO SCH ×3 (08:45→15:38)
[2016-12-02 09:52] LABS: ABG ALLEN TEST POS; CARBOXYHEMOGLOBIN 1.7 % (0.5-1.5); DRAW SITE RR; HHB 3.1 % (0.0-5.0); METHEMOGLOBIN 1.3 % (0.0-3.0)
[2016-12-02] MEDS ORDERED: Enoxaparin 60 mg Syringe SC SCH (10:00)
[2016-12-02] MEDS: MethylPREDNISolone 40 mg Vial IVP SCH ×2 (10:25→21:35)
[2016-12-02] MEDS: Pantoprazole 40 mg Susp UD PO SCH (10:44)
[2016-12-02] MEDS: Azithromycin 500 MG in Sodium Chloride 0.9% 250 ML IVPB SCH (10:44)
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
[2016-12-02] MEDS: (Lantus) Insulin Glargine, Recombinant SC SCH (21:35)
[2016-12-03] MEDS: Albuterol-Ipratrop 3 mg / 0.5 (3 ml) UD INH SCH ×4 (01:41→19:38)
[2016-12-03] MEDS: Oxycodone/Acetaminophen 5/325 mg Tab PO PRN ×2 (06:51→16:01)
[2016-12-03] MEDS: (Novolog) Insulin Aspart, Recombinant 100 u/ml 10 ml vial SC SCH ×4 (09:10→22:07)
[2016-12-03] MEDS: MethylPREDNISolone 40 mg Vial IVP SCH ×2 (10:48→22:14)
[2016-12-03] MEDS: Pantoprazole 40 mg Susp UD PO SCH (10:48)
[2016-12-03] MEDS: Azithromycin 500 MG in Sodium Chloride 0.9% 250 ML IVPB SCH (10:49)
--- NOTE | 2016-12-03 15:47 | CON ---
DATE: Thank you for asking me to see this patient. HISTORY OF PRESENT ILLNESS: The patient is a 61-year-old seen for pulmonary consultation. I have interviewed the patient and examined her. I reviewed her chart and all the lab data and x-rays. I have written my recommendations and also entered orders in the computer. All the details are written in the consult sheet. Please see consultation for further details. Thank you. Perico Magaña MD 12/02/201619:26:08
--- NOTE | 2016-12-03 17:28 | RAD ---
HISTORY: chf COMPARISON: Comparison is made to 12/01/2016 FINDINGS: LUNGS: Interval appearance of focal opacity at the medial aspect of the right lower lung since the previous exam may represent atelectasis or less likely pneumonia. Otherwise no significant interval change in the lungs. PLEURA: No significant pleural effusion identified, no pneumothorax apparent. CARDIOVASCULAR: Normal. OSSEOUS STRUCTURES: No significant abnormalities. VISUALIZED UPPER ABDOMEN: Normal. OTHER FINDINGS: None. IMPRESSION: New opacity at the medial lower right lung may represent atelectasis or less likely right middle lobe pneumonia. Otherwise no interval change.
[2016-12-03] MEDS: guaiFENesin 200 mg/10 ml Syrup UD PO SCH ×2 (17:52→22:13)
[2016-12-03] MEDS: Enoxaparin 40 mg Syringe SC SCH (17:53)
[2016-12-03] MEDS: (Lantus) Insulin Glargine, Recombinant SC SCH (22:14)
--- NOTE | 2016-12-03 23:16 | CP.PCM.HP ---
History of Present Illness - History of Present Illness History of Present Illness: 61 y/o F c PMHx COPD/asthma, s/p trach on home O2 at night and as needed during day p/w dyspnea x 1 week similar to previous COPD exacerbations and with cough productive of beige sputum. Denies chest pain, fever, vomiting. Past Patient History - Infectious Disease Hx of Infectious Diseases: None - Tetanus Immunizations Tetanus Immunization: Unknown - Past Medical History & Family History Past Medical History?: Yes - Past Social History Smoking Status: Never Smoked - CARDIAC Hx Congestive Heart Failure: Yes Hx Hypercholesterolemia: No Hx Hypertension: Yes - PULMONARY Hx Asthma: Yes Hx Bronchitis: Yes Hx Chronic Obstructive Pulmonary Disease (COPD): Yes Hx Emphysema: Yes Hx Pneumonia: Yes Hx Sleep Apnea: Yes - NEUROLOGICAL Hx Seizures: Yes - HEENT Hx HEENT Problems: Yes Hx Cataracts: Yes - RENAL Hx Chronic Kidney Disease: No - ENDOCRINE/METABOLIC Hx Hypothyroidism: No - HEMATOLOGICAL/ONCOLOGICAL Hx Human Immunodeficiency Virus (HIV): No - INTEGUMENTARY Hx Dermatological Problems: No - MUSCULOSKELETAL/RHEUMATOLOGICAL Hx Arthritis: No Hx Falls: Yes Hx Rheumatoid Arthritis: No - GASTROINTESTINAL Hx Gastrointestinal Disorders: Yes Other/Comment: cholecystectomy - GENITOURINARY/GYNECOLOGICAL Hx Sexually Transmitted Disorders: No - PSYCHIATRIC Hx Anxiety: Yes Hx Bipolar Disorder: Yes Hx Depression: Yes Hx Substance Use: No - SURGICAL HISTORY Hx Appendectomy: Yes Hx Cholecystectomy: Yes - ANESTHESIA Hx Anesthesia: Yes Hx Anesthesia Reactions: No Hx Malignant Hyperthermia: No Meds Allergies/Adverse Reactions: Allergies Allergy/AdvReac Type Severity Reaction Status Date / Time aspirin Allergy ANAPHYLAXIS Verified 07/24/16 22:31 ceftriaxone sodium Allergy ANAPHYLAXIS Verified 07/24/16 22:31 [From Rocephin] ibuprofen [From Motrin] Allergy ANAPHYLAXIS Verified 07/24/16 22:31 iodine Allergy ANAPHYLAXIS Verified 07/24/16 22:31 raspberry Allergy ANAPHYLAXIS Verified 07/24/16 22:31 Results - Vital Signs Recent Vital Signs: Last Vital Signs Temp 98.3 F 12/03/16 15:43 Pulse 73 12/03/16 15:43 Resp 20 12/03/16 15:43 BP 123/76 12/03/16 18:01 Pulse Ox 96 12/03/16 15:43 - Labs Result Diagrams: 12/01/16 22:55 12/01/16 22:55
--- NOTE | 2016-12-03 23:16 | CP.PCM.PN ---
Subjective - Date & Time of Evaluation Date of Evaluation: 12/03/16 Time of Evaluation: 10:00 - Subjective Subjective: pt seen and examined is less short of breath Objective - Vital Signs/Intake and Output Vital Signs (last 24 hours): Temp Pulse Resp BP Pulse Ox 98.3 F 73 20 123/76 96 12/03/16 15:43 12/03/16 15:43 12/03/16 15:43 12/03/16 18:01 12/03/16 15:43 Intake and Output: 12/03/16 12/04/16 18:59 06:59 Intake Total 730 Balance 730 - Medications Medications: Current Medications Albuterol/Ipratropium (Duoneb 3 Mg/0.5 Mg (3 Ml) Ud) 3 ml INH RQ6 [facility] [place] Last Admin: 12/03/16 19:38 Dose: 3 ml Benzonatate (Tessalon Perles) 100 mg PO TID [facility] [place] Last Admin: 12/03/16 17:53 Dose: 100 mg Enoxaparin Sodium (Lovenox) 40 mg SC DAILY [facility] [place] Last Admin: 12/03/16 17:53 Dose: 40 mg Gabapentin (Neurontin) 800 mg PO TID [facility] [place] Last Admin: 12/03/16 17:53 Dose: 800 mg Guaifenesin (Robitussin) 300 mg PO Q4 [facility] [place] Last Admin: 12/03/16 22:13 Dose: 300 mg Azithromycin 500 mg/ Sodium (Chloride) 250 mls @ 250 mls/hr IVPB DAILY [facility] [place] Last Admin: 12/03/16 10:49 Dose: 250 mls/hr Insulin Aspart (Novolog) 0 unit SC ACHS [facility] [place] PRN Reason: Protocol Last Admin: 12/03/16 22:07 Dose: Not Given Insulin Glargine (Lantus) 30 unit SC HS [facility] [place] Last Admin: 12/03/16 22:14 Dose: 30 u Lamotrigine (Lamictal) 100 mg PO Q12 [facility] [place] Last Admin: 12/03/16 22:13 Dose: 100 mg Lorazepam (Ativan) 2 mg PO TID PRN PRN Reason: Anxiety Last Admin: 12/03/16 16:03 Dose: 2 mg Methylprednisolone (Solu-Medrol) 40 mg IVP Q12 [facility] [place] Last Admin: 12/03/16 22:14 Dose: 40 mg Montelukast Sodium (Singulair) 10 mg PO [facility] Last Admin: 12/03/16 22:14 Dose: 10 mg Oxycodone/Acetaminophen (Percocet 5/325 Mg Tab) 1 tab PO Q4H PRN PRN Reason: Pain, moderate (4-7) Stop: 12/05/16 03:07 Last Admin: 12/03/16 16:01 Dose: 1 tab Pantoprazole Sodium (Protonix Susp) 40 mg PO DAILY [facility] [place] Last Admin: 12/03/16 10:48 Dose: 40 mg Pneumococcal Polyvalent Vaccine (Pneumovax 23 Vaccine) 0.5 ml IM .ONCE ONE Stop: 12/04/16 14:01 Quetiapine Fumarate (Seroquel) 400 mg PO Q12 [facility] [place] Last Admin: 12/03/16 22:14 Dose: 400 mg Sertraline HCl (Zoloft) 100 mg PO [facility] Last Admin: 12/03/16 22:14 Dose: 100 mg Trazodone HCl (Desyrel) 150 mg PO [facility] Last Admin: 12/03/16 22:13 Dose: 150 mg - Labs Labs: 12/01/16 22:55 12/01/16 22:55 - Constitutional Appears: No Acute Distress - Head Exam Head Exam: ATRAUMATIC, NORMAL INSPECTION, NORMOCEPHALIC - Eye Exam Eye Exam: EOMI, Normal appearance, PERRL Pupil Exam: NORMAL ACCOMODATION, PERRL - Respiratory Exam Respiratory Exam: Decreased Breath Sounds, Rales, Wheezes - Cardiovascular Exam Cardiovascular Exam: REGULAR RHYTHM, +S1, +S2. absent: Murmur - GI/Abdominal Exam GI & Abdominal Exam: Soft, Normal Bowel Sounds. absent: Tenderness Assessment and Plan (1) COPD exacerbation Status: Acute (2) Anemia Status: Acute (3) Asthma Status: Acute (4) Chronic pain Status: Acute
[2016-12-04] MEDS: guaiFENesin 200 mg/10 ml Syrup UD PO SCH ×6 (00:26→19:29)
[2016-12-04] MEDS: Albuterol-Ipratrop 3 mg / 0.5 (3 ml) UD INH SCH ×4 (01:11→20:17)
[2016-12-04] MEDS: Oxycodone/Acetaminophen 5/325 mg Tab PO PRN ×4 (04:04→21:48)
--- NOTE | 2016-12-04 07:21 | PN ---
DATE: 12/03/2016 SUBJECTIVE: The patient is alert and oriented. PHYSICAL EXAMINATION: VITAL SIGNS: She is afebrile with a blood pressure 122/76, pulse 72 per minute, respirations 20, hemoglobin oxygen saturation of 96% via trach collar oxygen at 35%. GENERAL: Her dyspnea is easier. Cough is improving. HEART: Regular. No gallop rhythm. LUNGS: Diminished breath sounds, rhonchi decreasing. ABDOMEN: Soft. EXTREMITIES: Legs: Minimal bilateral ankle edema. There is no rash. DIAGNOSTICS: Chest x-ray showed interstitial marking. IMPRESSION: Respiratory insufficiency, exacerbation of chronic obstructive pulmonary disease, diabetes mellitus, hypertensive cardiovascular disease, interstitial lung disease, anxiety, and depression. PLAN: To continue with current medications. We will give her one dose of IV Lasix to improve pulmonary congestion. Continue with the rest of the treatment. Perico Magaña MD
[2016-12-04] MEDS: (Novolog) Insulin Aspart, Recombinant 100 u/ml 10 ml vial SC SCH ×4 (09:17→21:30)
[2016-12-04] MEDS: Pantoprazole 40 mg Susp UD PO SCH (10:01)
[2016-12-04] MEDS: Enoxaparin 40 mg Syringe SC SCH (10:02)
[2016-12-04] MEDS: MethylPREDNISolone 40 mg Vial IVP SCH ×2 (10:02→21:49)
[2016-12-04] MEDS: Azithromycin 500 MG in Sodium Chloride 0.9% 250 ML IVPB SCH (11:42)
[2016-12-04] MEDS ORDERED: Influenza Virus Vaccine 45 mcg/0.5 ml Syr (36 months - 7 yrs) IM ONE (14:00)
[2016-12-04] MEDS ORDERED: Influenza Vaccine 60 mcg/0.5 mL SYR (4YR UP) IM ONE (14:00)
[2016-12-04] MEDS ORDERED: Pneumococcal 23-Valent Vaccine IM ONE (14:00)
--- NOTE | 2016-12-04 15:19 | PN ---
DATE: 12/04/2016 SUBJECTIVE: The patient was seen for followup. The patient is complaining of pain in her back. The patient is on Percocet. She stated she slept better last night. The patient still has problems breathing. PHYSICAL EXAMINATION: VITAL SIGNS: Temperature is 97.2, pulse rate 74, blood pressure 111/74, respirations 20, oxygen saturation is 92% on trach collar. The patient reports that she is taking Percocet for pain. The patient is advised not to take too much Percocet. We will change her pain meds as the patient has history of upper respiratory problems, due to [id number] interaction with her psych meds. Of note, the patient is on multiple psych meds. She is on Ativan, trazodone, Lamictal, Seroquel and also on Zoloft. REVIEW OF SYSTEMS: GENERAL: The patient is alert, verbal, seen in her room, feeding. SKIN: No diaphoresis. HEENT: No headache or dizziness. NECK: The patient has a trach collar. RESPIRATORY: The patient is still coughing. CARDIOVASCULAR: No chest pain. GASTROINTESTINAL: Appetite is fair. MUSCULOSKELETAL: Complaining of back pain. NEUROLOGIC: Alert and oriented x3. GENITOURINARY: No dysuria. EXTREMITIES: The patient moves extremities. MENTAL STATUS EXAMINATION: An obese female, who looks stated age, oriented x3. Mood is dysphoric, anxious. Affect is reactive. Speech is spontaneous. Thought process coherent. Thought content: The patient is complaining of pain. No paranoia. No suicidal or homicidal ideation. Attention and memory seem to be fair. Insight and judgement fair. Impulse control is fair. IMPRESSION: History of schizoaffective disorder, bipolar type as well as history of exacerbation of chronic obstructive pulmonary disease status post trach, diabetes, obesity, hypertension. PLAN AND RECOMMENDATION: The patient is seen and meds reviewed. Continue present psych meds. Continue pain meds as ordered. I do suggest not to change the pain medication as the patient has history of respiratory problems in the past and drug to drug interacting with her psych meds. The patient is on 5 psych medications. Continue antibiotic and treatment plan as outlined. Wellington Dejesus MD
[2016-12-04] MEDS ORDERED: Phenol Topical 1.4% Throat Spray (180 ml) MT PRN (15:28)
--- NOTE | 2016-12-04 18:49 | RAD ---
HISTORY: COPD. Technique: Single view portable semi erect @ 18:14. COMPARISON: December 03, 2016. Time of examination 16:55. FINDINGS: LUNGS: Improved aeration particularly at the right base. PLEURA: No significant pleural effusion identified, no pneumothorax apparent. CARDIOVASCULAR: Cardiomegaly. No evidence of acute, significant cardiovascular disease. OSSEOUS STRUCTURES: No significant abnormalities. VISUALIZED UPPER ABDOMEN: Normal. OTHER FINDINGS: Stable position tracheostomy device. IMPRESSION: Improving right lower lobe infiltrate. Otherwise no interval change.
--- NOTE | 2016-12-04 20:29 | CP.PCM.CON ---
History of Present Illness - History of Present Illness History of Present Illness: HPI; 61-year-old female with history off COPD, CHF, hypertension, sleep apnea syndrome, morbid obesity with history of depression and anxiety problems who was admitted on 12/02/16 with 1 week of dyspnea, sore throat, and hoarseness of the voice. Patient also states she has been having cough with BIEGE colored sputum. Secretions are thick and tenacious and difficult to expectorate. Patient has had multiple bronchopulmonary infections with multidrug resistant Proteus mirabilis, Morganella morganii and now with pseudomonas aeruginosa S -only to gentamicin.CHEST X-RAY ON ADMISSION SHOWED NEW OPACITY AT THE MEDIAL RIGHT LOWER LOBE CONSISTENT WITH RIGHT MIDDLE LOBE PNEUMONIA. PATIENT HAS A TRACHEOSTOMY IN PLACE. Patient presently on Zithromax 500 mg once a day daily. Infectious disease consultation requested by PMD for evaluation of IV antibiotics because of EXACERBATION OF copd WITH [id number] PSEUDOMONAS AERUGINOSA AND SPUTUM S-ONLY TO GENTAMICIN. PMH: Anxiety, Asthma, Bipolar Disorder, Bronchitis, CHF, COPD (ASTHMA, EMPHYSEMA ), Depression, HTN, Pneumonia, Seizures, Sleep Apnea Surgical History: Appendectomy, Cholecystectomy Allergy; ceftriaxone but patient has tolerated IV Zosyn, IV Azactam, IV Merrem in her past admission of 05/21/16. aspirin, ibuprofen, iodine, and félix. FAMILY HISTORY; NONCONTRIBUTORY. Review of Systems - Constitutional Constitutional: absent: Chills, Fever - EENT Eyes: absent: Change in Vision Nose/Mouth/Throat: Change in Voice, Hoarsness (TRACH IN PLACE WITH THICK BEIGE SECRETIONS.), Odynophagia, Sore Throat - Cardiovascular Cardiovascular: Dyspnea, Dyspnea on Exertion, Edema. absent: Chest Pain - Respiratory Respiratory: Cough, Dyspnea, Change in Mucous Color. absent: Hemoptysis - Gastrointestinal Gastrointestinal: absent: Abdominal Pain, Diarrhea, Nausea, Vomiting - Genitourinary Genitourinary: absent: Difficulty Urinating, Hematuria - Psychiatric Psychiatric: Anxiety, Depression - Hematologic/Lymphatic Hematologic: As Per HPI. absent: Easy Bleeding, Lymphadenopathy Past Patient History - Infectious Disease Hx of Infectious Diseases: None - Tetanus Immunizations Tetanus Immunization: Unknown - Past Medical History & Family History Past Medical History?: Yes - Past Social History Smoking Status: Never Smoked - CARDIAC Hx Congestive Heart Failure: Yes Hx Hypercholesterolemia: No Hx Hypertension: Yes - PULMONARY Hx Chronic Obstructive Pulmonary Disease (COPD): Yes - NEUROLOGICAL Hx Seizures: Yes - HEENT Hx HEENT Problems: Yes Hx Cataracts: Yes - RENAL Hx Chronic Kidney Disease: No - ENDOCRINE/METABOLIC Hx Hypothyroidism: No - HEMATOLOGICAL/ONCOLOGICAL Hx Human Immunodeficiency Virus (HIV): No - INTEGUMENTARY Hx Dermatological Problems: No - MUSCULOSKELETAL/RHEUMATOLOGICAL Hx Arthritis: No Hx Rheumatoid Arthritis: No - GASTROINTESTINAL Hx Gastrointestinal Disorders: Yes Other/Comment: cholecystectomy - GENITOURINARY/GYNECOLOGICAL Hx Sexually Transmitted Disorders: No - PSYCHIATRIC Hx Anxiety: Yes Hx Bipolar Disorder: Yes Hx Depression: Yes Hx Substance Use: No - SURGICAL HISTORY Hx Appendectomy: Yes Hx Cholecystectomy: Yes - ANESTHESIA Hx Anesthesia: Yes Hx Anesthesia Reactions: No Hx Malignant Hyperthermia: No Meds Allergies/Adverse Reactions: Allergies Allergy/AdvReac Type Severity Reaction Status Date / Time aspirin Allergy ANAPHYLAXIS Verified 07/24/16 22:31 ceftriaxone sodium Allergy ANAPHYLAXIS Verified 07/24/16 22:31 [From Rocephin] ibuprofen [From Motrin] Allergy ANAPHYLAXIS Verified 07/24/16 22:31 iodine Allergy ANAPHYLAXIS Verified 07/24/16 22:31 raspberry Allergy ANAPHYLAXIS Verified 07/24/16 22:31 - Medications Medications: Current Medications Albuterol/Ipratropium (Duoneb 3 Mg/0.5 Mg (3 Ml) Ud) 3 ml INH RQ6 [facility] Last Admin: 12/04/16 20:17 Dose: 3 ml Benzonatate (Tessalon Perles) 100 mg PO TID [facility] Last Admin: 12/04/16 17:49 Dose: 100 mg Enoxaparin Sodium (Lovenox) 40 mg SC DAILY [facility] Last Admin: 12/04/16 10:02 Dose: 40 mg Gabapentin (Neurontin) 800 mg PO TID [facility] Last Admin: 12/04/16 17:49 Dose: 800 mg Guaifenesin (Robitussin) 300 mg PO Q4 [facility] Last Admin: 12/04/16 19:29 Dose: 300 mg Azithromycin 500 mg/ Sodium (Chloride) 250 mls @ 250 mls/hr IVPB DAILY [facility] Last Admin: 12/04/16 11:42 Dose: 250 mls/hr Insulin Aspart (Novolog) 0 unit SC ACHS [facility] PRN Reason: Protocol Last Admin: 12/04/16 17:49 Dose: 3 unit Insulin Glargine (Lantus) 30 unit SC HS [facility] Last Admin: 12/03/16 22:14 Dose: 30 u Lamotrigine (Lamictal) 100 mg PO Q12 [facility] Last Admin: 12/04/16 10:01 Dose: 100 mg Lorazepam (Ativan) 2 mg PO TID PRN PRN Reason: Anxiety Last Admin: 12/04/16 04:07 Dose: 2 mg Methylprednisolone (Solu-Medrol) 40 mg IVP Q12 [facility] Last Admin: 12/04/16 10:02 Dose: 40 mg Montelukast Sodium (Singulair) 10 mg PO [facility] Last Admin: 12/03/16 22:14 Dose: 10 mg Oxycodone/Acetaminophen (Percocet 5/325 Mg Tab) 2 tab PO Q4H PRN PRN Reason: Pain, moderate (4-7) Stop: 12/05/16 03:07 Last Admin: 12/04/16 15:57 Dose: 2 tab Pantoprazole Sodium (Protonix Susp) 40 mg PO DAILY [facility] Last Admin: 12/04/16 10:01 Dose: 40 mg Phenol/Menthol (Phenaseptic 1.4% Throat [place]) 1 ml MT Q6 PRN PRN Reason: Sore Throat Quetiapine Fumarate (Seroquel) 400 mg PO Q12 [facility] Last Admin: 12/04/16 10:01 Dose: 400 mg Sertraline HCl (Zoloft) 100 mg PO [facility] Last Admin: 12/03/16 22:14 Dose: 100 mg Trazodone HCl (Desyrel) 150 mg PO [facility] Last Admin: 12/03/16 22:13 Dose: 150 mg Physical Exam - Constitutional Appears: No Acute Distress Additional comments: MORBIDLY OBESE - Head Exam Head Exam: NORMAL INSPECTION - Eye Exam Eye Exam: EOMI, PERRL - ENT Exam ENT Exam: Normal Oropharynx - Neck Exam Neck exam: Positive for: Normal Inspection. Negative for: Thyromegaly - Respiratory Exam Respiratory Exam: Rhonchi (BILATERALLY.) - Cardiovascular Exam Cardiovascular Exam: REGULAR RHYTHM, +S1 - GI/Abdominal Exam GI & Abdominal Exam: Normal Bowel Sounds, Soft. absent: Organomegaly - Extremities Exam Extremities exam: Positive for: pedal edema, pedal pulses present. Negative for : calf tenderness - Neurological Exam Neurological exam: Alert, CN II-XII Intact, Oriented x3, Reflexes Normal - Psychiatric Exam Psychiatric exam: Normal Mood - Skin Skin Exam: Normal Color, Warm Results - Vital Signs Recent Vital Signs: Last Vital Signs Temp 98.4 F 12/04/16 15:15 Pulse 80 12/04/16 15:15 Resp 20 12/04/16 15:15 BP 154/85 H 12/04/16 15:15 Pulse Ox 97 12/04/16 15:15 - Labs Result Diagrams: 12/01/16 22:55 12/01/16 22:55 Labs: Laboratory Results - last 24 hr 12/03/16 12/03/16 12/03/16 06:31 11:08 16:29 POC Glucose (mg/dL) 326 H 191 H 258 H 12/03/16 12/04/16 12/04/16 21:22 06:15 10:53 POC Glucose (mg/dL) 236 H 307 H 351 H 12/04/16 16:05 POC Glucose (mg/dL) 291 H - Imaging and Cardiology Chest x-ray Status: Report reviewed by me (chest x-ray 12/04/16 and improving right lower lobe infiltrate.) Assessment & Plan (1) Pneumonia Status: Acute (2) COPD exacerbation Status: Acute (3) Tracheostomy dependence Status: Acute (4) Anxiety and depression Status: Chronic (5) Morbid obesity Status: Acute (6) Diabetes mellitus Status: Chronic - Assessment and Plan (Free Text) Plan: pancultures. BLOOD CULTURES 2 SETS 30 MINUTES APART. esr. crp ProBNP. Start COLISTIN 150MG IV [id number] 12/04/16 FOR PSEUDOMONAL COVERAGE. ADD IV GENTAMICIN 200MG IVPB LOADING DOSE TODAY. F/U 120 MG GENTAMICIN DAILY FOR 4 DAYS FOR SYNERGY. dc Zithromax IV. fOLLOW-UP RENAL FUNCTIONS CLOSELY. PULMONARY TOILET WHEN NECESSARY. FOLLOW-UP CHEST X-RAY TO CLEARING. STRICT CONTACT PRECAUTIONS FOR MULTIDRUG RESISTANT pSEUDOMONAS. WILL FOLLOW WITH YOU WHILE THE PATIENT IS IN HOSPITAL.
[2016-12-04] MEDS: (Lantus) Insulin Glargine, Recombinant SC SCH (21:49)
--- NOTE | 2016-12-04 22:56 | CP.PCM.PN ---
Subjective - Date & Time of Evaluation Date of Evaluation: 12/04/16 Time of Evaluation: 19:00 - Subjective Subjective: pt seen & evaluated, feling better less short of breath, less cough, less wheezing Objective - Vital Signs/Intake and Output Vital Signs (last 24 hours): Temp Pulse Resp BP Pulse Ox 98.4 F 80 20 154/85 H 97 12/04/16 15:15 12/04/16 15:15 12/04/16 15:15 12/04/16 15:15 12/04/16 15:15 Intake and Output: 12/04/16 12/05/16 18:59 06:59 Intake Total 1020 Balance 1020 - Medications Medications: Current Medications Albuterol/Ipratropium (Duoneb 3 Mg/0.5 Mg (3 Ml) Ud) 3 ml INH RQ6 [facility] Last Admin: 12/04/16 20:17 Dose: 3 ml Benzonatate (Tessalon Perles) 100 mg PO TID [facility] Last Admin: 12/04/16 17:49 Dose: 100 mg Enoxaparin Sodium (Lovenox) 40 mg SC DAILY [facility] Last Admin: 12/04/16 10:02 Dose: 40 mg Gabapentin (Neurontin) 800 mg PO TID [facility] Last Admin: 12/04/16 17:49 Dose: 800 mg Guaifenesin (Robitussin) 300 mg PO Q4 [facility] Last Admin: 12/04/16 19:29 Dose: 300 mg Colistimethate Sodium 150 mg/ (Sodium Chloride) 100 mls @ 200 mls/hr IV Q12H [facility] Gentamicin Sulfate 200 mg/ (Sodium Chloride) 105 mls @ 100 mls/hr IVPB ONCE ONE Stop: 12/05/16 11:02 Insulin Aspart (Novolog) 0 unit SC ACHS [facility] PRN Reason: Protocol Last Admin: 12/04/16 21:30 Dose: Not Given Insulin Glargine (Lantus) 30 unit SC HS [facility] Last Admin: 12/04/16 21:49 Dose: 30 units Lamotrigine (Lamictal) 100 mg PO Q12 [facility] Last Admin: 12/04/16 21:49 Dose: 100 mg Lorazepam (Ativan) 2 mg PO TID PRN PRN Reason: Anxiety Last Admin: 12/04/16 04:07 Dose: 2 mg Methylprednisolone (Solu-Medrol) 40 mg IVP Q12 [facility] Last Admin: 12/04/16 21:49 Dose: 40 mg Montelukast Sodium (Singulair) 10 mg PO [facility] Last Admin: 12/04/16 21:49 Dose: 10 mg Oxycodone/Acetaminophen (Percocet 5/325 Mg Tab) 2 tab PO Q4H PRN PRN Reason: Pain, moderate (4-7) Stop: 12/05/16 03:07 Last Admin: 12/04/16 21:48 Dose: 2 tab Pantoprazole Sodium (Protonix Susp) 40 mg PO DAILY [facility] Last Admin: 12/04/16 10:01 Dose: 40 mg Phenol/Menthol (Phenaseptic 1.4% Throat [place]) 1 ml MT Q6 PRN PRN Reason: Sore Throat Quetiapine Fumarate (Seroquel) 400 mg PO Q12 [facility] Last Admin: 12/04/16 21:49 Dose: 400 mg Sertraline HCl (Zoloft) 100 mg PO [facility] Last Admin: 12/04/16 21:49 Dose: 100 mg Trazodone HCl (Desyrel) 150 mg PO [facility] Last Admin: 12/04/16 21:49 Dose: 150 mg - Labs Labs: 12/01/16 22:55 12/01/16 22:55 - Constitutional Appears: No Acute Distress, Chronically Ill - Head Exam Head Exam: ATRAUMATIC, NORMAL INSPECTION, NORMOCEPHALIC - Eye Exam Eye Exam: EOMI, Normal appearance, PERRL Pupil Exam: NORMAL ACCOMODATION, PERRL - Respiratory Exam Respiratory Exam: Decreased Breath Sounds, Rales, Rhonchi - Cardiovascular Exam Cardiovascular Exam: REGULAR RHYTHM, +S1, +S2. absent: Murmur - GI/Abdominal Exam GI & Abdominal Exam: Soft, Normal Bowel Sounds. absent: Tenderness Assessment and Plan (1) COPD exacerbation Assessment & Plan: pancultures. BLOOD CULTURES 2 SETS 30 MINUTES APART. esr. crp ProBNP. Start COLISTIN 150MG IV [id number] 12/04/16 FOR PSEUDOMONAL COVERAGE. ADD IV GENTAMICIN 200MG IVPB LOADING DOSE TODAY. F/U 120 MG GENTAMICIN DAILY FOR 4 DAYS FOR SYNERGY. dc Zithromax IV. fOLLOW-UP RENAL FUNCTIONS CLOSELY. PULMONARY TOILET WHEN NECESSARY. FOLLOW-UP CHEST X-RAY TO CLEARING. STRICT CONTACT PRECAUTIONS FOR MULTIDRUG RESISTANT pSEUDOMONAS. WILL FOLLOW WITH YOU WHILE THE PATIENT IS IN HOSPITAL. Status: Acute (2) Anemia Status: Acute (3) Asthma Status: Acute (4) Chronic back pain Status: Acute
[2016-12-05] MEDS: guaiFENesin 200 mg/10 ml Syrup UD PO SCH ×6 (00:43→20:05)
[2016-12-05] MEDS: Albuterol-Ipratrop 3 mg / 0.5 (3 ml) UD INH SCH ×4 (01:16→19:45)
[2016-12-05 07:21] LABS: BASO % 0.1 % (0.0-2.0); HEMATOCRIT 39.7 % (34.0-47.0); LYMPH # 1.6 K/uL (1.0-4.3); LYMPH % 10.5 % (20.0-40.0); MEAN CELL VOLUME 79.4 fL (81.0-99.0); MEAN CORPUSCULAR HEMOGLOBIN 26.1 pg (27.0-31.0); MEAN CORPUSCULAR HGB CONC 32.8 g/dL (33.0-37.0); MEAN PLATELET VOLUME 8.4 fL (7.2-11.7); MONO # 0.8 K/uL (0.0-0.8); MONO % 5.1 % (0.0-10.0); RED CELL DISTRIBUTION WIDTH 14.6 % (11.5-14.5); WHITE BLOOD COUNT 15.1 K/uL (4.8-10.8)
[2016-12-05 07:22] LABS: CHLORIDE 94 mmol/L (98-107); SODIUM 136 mmol/L (132-148)
[2016-12-05 07:23] LABS: POTASSIUM 4.4 mmol/L (3.6-5.2)
[2016-12-05 07:24] LABS: GFR AFRICAN-AMERICAN > 60
[2016-12-05 07:25] LABS: ALB/GLOB RATIO 0.9 (1.0-2.1); ALKALINE PHOSPHATASE 105 U/L (38-126); ALT/SGPT 29 U/L (9-52); AST/SGOT 22 U/L (14-36); BILIRUBIN,DIRECT 0.3 mg/dL (0.0-0.4); BILIRUBIN,TOTAL 0.5 mg/dL (0.2-1.3); BLOOD UREA NITROGEN 24 mg/dL (7-17); CALCIUM 9.5 mg/dl (8.6-10.4); CARBON DIOXIDE 30 mmol/L (22-30); GLUCOSE,RANDOM 238 mg/dL (65-105); TOTAL PROTEIN 8.7 g/dL (6.3-8.3)
[2016-12-05] MEDS: (Novolog) Insulin Aspart, Recombinant 100 u/ml 10 ml vial SC SCH ×4 (11:00→21:52)
[2016-12-05] MEDS: MethylPREDNISolone 40 mg Vial IVP SCH ×2 (11:41→21:42)
[2016-12-05] MEDS: Enoxaparin 40 mg Syringe SC SCH (11:41)
[2016-12-05] MEDS: Pantoprazole 40 mg Susp UD PO SCH (11:42)
[2016-12-05] MEDS: Oxycodone/Acetaminophen 5/325 mg Tab PO PRN ×2 (14:06→21:41)
[2016-12-05 15:39] LABS: TOTAL PROTEIN, SERUM 7.7 g/dL (6.1-8.1)
[2016-12-05] MEDS: (Lantus) Insulin Glargine, Recombinant SC SCH (21:42)
--- NOTE | 2016-12-05 22:26 | CP.PCM.PN ---
Subjective - Date & Time of Evaluation Date of Evaluation: 12/05/16 Time of Evaluation: 22:26 - Subjective Subjective: CHIEF COMPLAINTS TODAY : afebrile, THICK +VE SECRETIONS CLINICALLY SAME C/O THROAT PAIN sputum +ve pseudomonas aeruginosa ROS. HEENT : N. Resp : +ve SOB wheezing, cough Cardio : No CP, PND orthopnea GI : No abd. 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 Musculoskel : N Ext. : Pedal pulses intact, no edema or calf pain Derm : N Psych : N. PE. Pt. is alert awake in no distress. V.S As noted in the chart Head ,ear nose,throat and eyes : Normal. Neck : Supple with normal carotids. Lungs: BILATERAL RHONCHI AND WHEEZE. Heart : S1 & S2 normal . . No murmur. S4 + Abd : Soft non tender with normal bowel sounds. Neuro : Moves all ext. with no localized deficit. Ext : No edema with intact pulses. Neg. calf tenderness Derm : No rashes or decubitus ulcer. Radiology/Labs . reviewed. [id number] ESR 34 cREATININE 0.9 bun 24. SPUTUM CULTURE +VE PSEUDOMONAS AERUGINOSA -S -GENTAMICIN Objective - Vital Signs/Intake and Output Vital Signs (last 24 hours): Temp Pulse Resp BP Pulse Ox 97.8 F 85 20 105/69 95 12/05/16 16:02 12/05/16 16:02 12/05/16 16:02 12/05/16 16:02 12/05/16 16:02 Intake and Output: 12/05/16 12/06/16 18:59 06:59 Intake Total 505 Balance 505 - Medications Medications: Current Medications Albuterol/Ipratropium (Duoneb 3 Mg/0.5 Mg (3 Ml) Ud) 3 ml INH RQ6 [facility] Last Admin: 12/05/16 19:45 Dose: 3 ml Benzonatate (Tessalon Perles) 100 mg PO TID [facility] Last Admin: 12/05/16 17:38 Dose: 100 mg Enoxaparin Sodium (Lovenox) 40 mg SC DAILY [facility] Last Admin: 12/05/16 11:41 Dose: 40 mg Gabapentin (Neurontin) 800 mg PO TID [facility] Last Admin: 12/05/16 17:37 Dose: 800 mg Guaifenesin (Robitussin) 300 mg PO Q4 [facility] Last Admin: 12/05/16 20:05 Dose: 300 mg Colistimethate Sodium 150 mg/ (Sodium Chloride) 100 mls @ 200 mls/hr IV Q12H [facility] Last Admin: 12/05/16 11:42 Dose: 200 mls/hr Insulin Aspart (Novolog) 0 unit SC ACHS [facility] PRN Reason: Protocol Last Admin: 12/05/16 21:52 Dose: Not Given Insulin Glargine (Lantus) 30 unit SC [facility] Last Admin: 12/05/16 21:42 Dose: 30 units Lamotrigine (Lamictal) 100 mg PO Q12 [facility] Last Admin: 12/05/16 21:42 Dose: 100 mg Lorazepam (Ativan) 2 mg PO TID PRN PRN Reason: Anxiety Last Admin: 12/04/16 04:07 Dose: 2 mg Methylprednisolone (Solu-Medrol) 40 mg IVP Q12 [facility] Last Admin: 12/05/16 21:42 Dose: 40 mg Montelukast Sodium (Singulair) 10 mg PO [facility] Last Admin: 12/05/16 21:41 Dose: 10 mg Oxycodone/Acetaminophen (Percocet 5/325 Mg Tab) 2 tab PO Q4H PRN PRN Reason: Pain, severe (8-10) Stop: 12/08/16 14:01 Last Admin: 12/05/16 21:41 Dose: 2 tab Pantoprazole Sodium (Protonix Susp) 40 mg PO DAILY [facility] Last Admin: 12/05/16 11:42 Dose: 40 mg Phenol/Menthol (Phenaseptic 1.4% Throat [place]) 1 ml MT Q6 PRN PRN Reason: Sore Throat Quetiapine Fumarate (Seroquel) 400 mg PO Q12 [facility] Last Admin: 12/05/16 21:43 Dose: 400 mg Sertraline HCl (Zoloft) 100 mg PO [facility] Last Admin: 12/05/16 21:41 Dose: 100 mg Trazodone HCl (Desyrel) 150 mg PO [facility] Last Admin: 12/05/16 21:40 Dose: 150 mg - Labs Labs: 12/05/16 07:00 12/05/16 07:00 Assessment and Plan (1) Pneumonia Status: Acute (2) COPD exacerbation Status: Acute (3) Tracheostomy dependence Status: Acute (4) Anxiety and depression Status: Chronic (5) Morbid obesity Status: Acute (6) Diabetes mellitus Status: Chronic - Assessment and Plan (Free Text) Plan: ON COLISTIN 150MG IV [id number] 12/04/16 FOR PSEUDOMONAL COVERAGE. ADD IV GENTAMICIN 200MG IVPB LOADING DOSE TODAY.12/04/16 F/U 120 MG GENTAMICIN DAILY FOR 4 DAYS FOR SYNERGY.12/05/16 fOLLOW-UP RENAL FUNCTIONS CLOSELY. ASK MICRO TO CHECK FOR SENSITIVITY OF PSEUDOMONAS IN SPUTUM 12/02/16 WITH COLISTIN,AVYCAZ, MEROPENEM AND IMIPENEM, GENTAMICIN, AMIKACIN. PULMONARY TOILET WHEN NECESSARY. FOLLOW-UP CHEST X-RAY TO CLEARING. STRICT CONTACT PRECAUTIONS FOR MULTIDRUG RESISTANT pSEUDOMONAS.
--- NOTE | 2016-12-05 23:21 | CP.PCM.PN ---
Subjective - Date & Time of Evaluation Date of Evaluation: 12/05/16 Time of Evaluation: 20:35 - Subjective Subjective: pt seen & examined, is feeling better Objective - Vital Signs/Intake and Output Vital Signs (last 24 hours): Temp Pulse Resp BP Pulse Ox 98.3 F 76 20 152/78 H 95 12/05/16 22:00 12/05/16 22:00 12/05/16 16:02 12/05/16 22:00 12/05/16 16:02 Intake and Output: 12/05/16 12/06/16 18:59 06:59 Intake Total 505 100 Balance 505 100 - Medications Medications: Current Medications Albuterol/Ipratropium (Duoneb 3 Mg/0.5 Mg (3 Ml) Ud) 3 ml INH RQ6 [facility] Last Admin: 12/05/16 19:45 Dose: 3 ml Benzonatate (Tessalon Perles) 100 mg PO TID [facility] Last Admin: 12/05/16 17:38 Dose: 100 mg Enoxaparin Sodium (Lovenox) 40 mg SC DAILY [facility] Last Admin: 12/05/16 11:41 Dose: 40 mg Gabapentin (Neurontin) 800 mg PO TID [facility] Last Admin: 12/05/16 17:37 Dose: 800 mg Guaifenesin (Robitussin) 300 mg PO Q4 [facility] Last Admin: 12/05/16 20:05 Dose: 300 mg Colistimethate Sodium 150 mg/ (Sodium Chloride) 100 mls @ 200 mls/hr IV Q12H [facility] Last Admin: 12/05/16 23:06 Dose: 200 mls/hr Gentamicin Sulfate 120 mg/ (Sodium Chloride) 103 mls @ 100 mls/hr IVPB Q24H [facility] Stop: 12/08/16 23:47 Insulin Aspart (Novolog) 0 unit SC ACHS [facility] PRN Reason: Protocol Last Admin: 12/05/16 21:52 Dose: Not Given Insulin Glargine (Lantus) 30 unit SC HS [facility] Last Admin: 12/05/16 21:42 Dose: 30 units Lamotrigine (Lamictal) 100 mg PO Q12 [facility] Last Admin: 12/05/16 21:42 Dose: 100 mg Lorazepam (Ativan) 2 mg PO TID PRN PRN Reason: Anxiety Last Admin: 12/04/16 04:07 Dose: 2 mg Methylprednisolone (Solu-Medrol) 40 mg IVP Q12 [facility] Last Admin: 12/05/16 21:42 Dose: 40 mg Montelukast Sodium (Singulair) 10 mg PO [facility] Last Admin: 12/05/16 21:41 Dose: 10 mg Oxycodone/Acetaminophen (Percocet 5/325 Mg Tab) 2 tab PO Q4H PRN PRN Reason: Pain, severe (8-10) Stop: 12/08/16 14:01 Last Admin: 12/05/16 21:41 Dose: 2 tab Pantoprazole Sodium (Protonix Susp) 40 mg PO DAILY [facility] Last Admin: 12/05/16 11:42 Dose: 40 mg Phenol/Menthol (Phenaseptic 1.4% Throat [place]) 1 ml MT Q6 PRN PRN Reason: Sore Throat Quetiapine Fumarate (Seroquel) 400 mg PO Q12 [facility] Last Admin: 12/05/16 21:43 Dose: 400 mg Sertraline HCl (Zoloft) 100 mg PO [facility] Last Admin: 12/05/16 21:41 Dose: 100 mg Trazodone HCl (Desyrel) 150 mg PO [facility] Last Admin: 12/05/16 21:40 Dose: 150 mg - Labs Labs: 12/05/16 07:00 12/05/16 07:00 - Constitutional Appears: No Acute Distress - Head Exam Head Exam: ATRAUMATIC, NORMAL INSPECTION, NORMOCEPHALIC - Eye Exam Eye Exam: EOMI, Normal appearance, PERRL Pupil Exam: NORMAL ACCOMODATION, PERRL - Respiratory Exam Respiratory Exam: Decreased Breath Sounds, Rales, Rhonchi - Cardiovascular Exam Cardiovascular Exam: REGULAR RHYTHM, +S1, +S2. absent: Murmur - GI/Abdominal Exam GI & Abdominal Exam: Soft, Normal Bowel Sounds. absent: Tenderness Assessment and Plan (1) COPD exacerbation Assessment & Plan: pancultures. BLOOD CULTURES 2 SETS 30 MINUTES APART. esr. crp ProBNP. Start COLISTIN 150MG IV [id number] 12/04/16 FOR PSEUDOMONAL COVERAGE. ADD IV GENTAMICIN 200MG IVPB LOADING DOSE TODAY. F/U 120 MG GENTAMICIN DAILY FOR 4 DAYS FOR SYNERGY. dc Zithromax IV. fOLLOW-UP RENAL FUNCTIONS CLOSELY. PULMONARY TOILET WHEN NECESSARY. FOLLOW-UP CHEST X-RAY TO CLEARING. STRICT CONTACT PRECAUTIONS FOR MULTIDRUG RESISTANT pSEUDOMONAS. WILL FOLLOW WITH YOU WHILE THE PATIENT IS IN HOSPITAL. Status: Acute (2) Anemia Status: Acute (3) Asthma Status: Acute (4) COPD exacerbation Status: Acute (5) Chronic back pain Status: Acute
[2016-12-06] MEDS: guaiFENesin 200 mg/10 ml Syrup UD PO SCH ×3 (00:20→08:59)
[2016-12-06] MEDS: Albuterol-Ipratrop 3 mg / 0.5 (3 ml) UD INH SCH ×4 (01:02→20:33)
[2016-12-06] MEDS: (Novolog) Insulin Aspart, Recombinant 100 u/ml 10 ml vial SC SCH ×4 (08:38→21:21)
[2016-12-06] MEDS: MethylPREDNISolone 40 mg Vial IVP SCH ×2 (09:57→21:28)
[2016-12-06] MEDS: Enoxaparin 40 mg Syringe SC SCH (09:58)
[2016-12-06] MEDS: Pantoprazole 40 mg Susp UD PO SCH (09:58)
[2016-12-06] MEDS: guaiFENesin 100 mg/5 ml Syrup UD PO SCH ×3 (12:04→20:10)
--- NOTE | 2016-12-06 15:39 | PN ---
SUBJECTIVE: The patient is seen. The patient continues to improve clinically. She states she slept well last night. According to the nurse, the patient is still asking for morphine, but I told the patient and I also advised not to morphine her as the patient is taking multiple psych meds. She has history of having respiratory problems in the past due to interactions with her pain medication and the multiple psych medicines she is taking. Note that the patient is on Ativan, Desyrel, Neurontin, Seroquel, Zoloft, and Lamictal, can cause interactions with each other and can cause respiratory problems. The patient has also agreed. PHYSICAL EXAMINATION: VITAL SIGNS: Temperature is 98.1, pulse rate is 77, blood pressure 131/77, respiration is 20, oxygen saturation 99% on trach collar. REVIEW OF SYSTEMS: GENERAL: The patient is more alert, oriented x3; speaks in whispers, seen in her room. She states she is feeding much better. The patient states she does not want to go for subacute rehab, wants to go home when she is medically cleared. Psych de la cruz she is improving. SKIN: No diaphoresis. HEENT: No headache. No dizziness. NECK: Trach. RESPIRATORY: Breathing much easier, not coughing. CARDIOVASCULAR: No chest pain. GASTROINTESTINAL: She has good appetite. EXTREMITIES: No tremors. MUSCULOSKELETAL: Feels weak. NEUROLOGIC: Alert and oriented x3. GENITOURINARY: No urinary problems. MENTAL STATUS EXAMINATION: Obese female, who looks dazed. oriented x3. Mood is much calmer, less depressed, less anxious. Affect is reactive, fixed gaze. Thought process is coherent. Thought content: No overt psychosis. No suicidal or homicidal ideation. The patient has agreed to take breakfast p.r.n. and not asking anymore to have her pain meds decreased for fear of drug-drug interaction which converts into respiratory problems. As stated, no psychosis, no suicidal ideation. Attention and memory seem to be fair. Insight and judgment fair. Impulse control is fair. IMPRESSION: History of schizoaffective disorder, bipolar type, history of exacerbation of chronic obstructive pulmonary disease, diabetes, status post tracheostomy, hypertension, obesity. PLAN AND RECOMMENDATIONS: The patient seen in bed. She will continue pain medicines as ordered. Continue antibiotics as ordered. Psych de la cruz, once the patient is medically stable, the patient may go home with her family. She lives with one of her daughter's, Toshia, and the patient psych de la cruz is stable with current regimen and psych meds. Wellington Dejesus MD
[2016-12-06] MEDS: Oxycodone/Acetaminophen 5/325 mg Tab PO PRN ×2 (15:41→21:28)
--- NOTE | 2016-12-06 18:21 | CP.PCM.PN ---
Subjective - Date & Time of Evaluation Date of Evaluation: 12/06/16 Time of Evaluation: 18:21 - Subjective Subjective: CHIEF COMPLAINTS TODAY : afebrile, THICK +VE SECRETIONS CLINICALLY SAME voice hoarse. sputum +ve pseudomonas aeruginosa ROS. HEENT : N. Resp : +ve SOB wheezing, cough Cardio : No CP, PND orthopnea GI : No abd. 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 Musculoskel : N Ext. : Pedal pulses intact, no edema or calf pain Derm : N Psych : N. PE. Pt. is alert awake in no distress. V.S As noted in the chart Head ,ear nose,throat and eyes : Normal. Neck : Supple with normal carotids. Lungs: BILATERAL RHONCHI AND WHEEZE. Heart : S1 & S2 normal . . No murmur. S4 + Abd : Soft non tender with normal bowel sounds. Neuro : Moves all ext. with no localized deficit. Ext : No edema with intact pulses. Neg. calf tenderness Derm : No rashes or decubitus ulcer. Radiology/Labs . reviewed. wbc15.1 ESR 34 cREATININE 0.9 bun 24. SPUTUM CULTURE +VE PSEUDOMONAS AERUGINOSA -S -GENTAMICIN Objective - Vital Signs/Intake and Output Vital Signs (last 24 hours): Temp Pulse Resp BP Pulse Ox 98.5 F 68 18 126/65 97 12/06/16 16:00 12/06/16 16:00 12/06/16 16:00 12/06/16 16:00 12/06/16 16:00 Intake and Output: 12/06/16 12/06/16 06:59 18:59 Intake Total 100 Balance 100 - Medications Medications: Current Medications Albuterol/Ipratropium (Duoneb 3 Mg/0.5 Mg (3 Ml) Ud) 3 ml INH RQ6 [facility] Last Admin: 12/06/16 13:17 Dose: 3 ml Benzonatate (Tessalon Perles) 100 mg PO TID [facility] Last Admin: 12/06/16 18:00 Dose: 100 mg Enoxaparin Sodium (Lovenox) 40 mg SC DAILY [facility] Last Admin: 12/06/16 09:58 Dose: 40 mg Gabapentin (Neurontin) 800 mg PO TID [facility] Last Admin: 12/06/16 18:00 Dose: 800 mg Guaifenesin (Robitussin) 300 mg PO Q4 [facility] Last Admin: 12/06/16 15:41 Dose: 300 mg Colistimethate Sodium 150 mg/ (Sodium Chloride) 100 mls @ 200 mls/hr IV Q12H [facility] Last Admin: 12/06/16 10:07 Dose: 200 mls/hr Gentamicin Sulfate 120 mg/ (Sodium Chloride) 103 mls @ 100 mls/hr IVPB Q24H [facility] Stop: 12/08/16 23:47 Last Admin: 12/05/16 23:50 Dose: 100 mls/hr Insulin Aspart (Novolog) 0 unit SC ACHS [facility] PRN Reason: Protocol Last Admin: 12/06/16 18:00 Dose: 3 unit Insulin Glargine (Lantus) 30 unit SC [facility] Last Admin: 12/05/16 21:42 Dose: 30 units Lamotrigine (Lamictal) 100 mg PO Q12 [facility] Last Admin: 12/06/16 09:58 Dose: 100 mg Lorazepam (Ativan) 2 mg PO TID PRN PRN Reason: Anxiety Last Admin: 12/04/16 04:07 Dose: 2 mg Methylprednisolone (Solu-Medrol) 40 mg IVP Q12 [facility] Last Admin: 12/06/16 09:57 Dose: 40 mg Montelukast Sodium (Singulair) 10 mg PO [facility] Last Admin: 12/05/16 21:41 Dose: 10 mg Oxycodone/Acetaminophen (Percocet 5/325 Mg Tab) 2 tab PO Q4H PRN PRN Reason: Pain, severe (8-10) Stop: 12/08/16 14:01 Last Admin: 12/06/16 15:41 Dose: 2 tab Pantoprazole Sodium (Protonix Susp) 40 mg PO DAILY [facility] Last Admin: 12/06/16 09:58 Dose: 40 mg Phenol/Menthol (Phenaseptic 1.4% Throat [place]) 1 ml MT Q6 PRN PRN Reason: Sore Throat Quetiapine Fumarate (Seroquel) 400 mg PO Q12 [facility] Last Admin: 12/06/16 09:58 Dose: 400 mg Sertraline HCl (Zoloft) 100 mg PO [facility] Last Admin: 12/05/16 21:41 Dose: 100 mg Trazodone HCl (Desyrel) 150 mg PO [facility] Last Admin: 12/05/16 21:40 Dose: 150 mg - Labs Labs: 12/05/16 07:00 12/05/16 07:00 Assessment and Plan (1) Pneumonia Status: Acute (2) COPD exacerbation Status: Acute (3) Tracheostomy dependence Status: Acute (4) Anxiety and depression Status: Chronic (5) Morbid obesity Status: Acute (6) Diabetes mellitus Status: Chronic - Assessment and Plan (Free Text) Plan: Plan: ON COLISTIN 150MG IV [id number] 12/04/16 FOR PSEUDOMONAL COVERAGE. ADD IV GENTAMICIN 200MG IVPB LOADING DOSE TODAY.12/04/16 F/U 120 MG GENTAMICIN DAILY FOR 4 DAYS FOR SYNERGY.12/05/16- fOLLOW-UP RENAL FUNCTIONS CLOSELY. ASK MICRO TO CHECK FOR SENSITIVITY OF PSEUDOMONAS IN SPUTUM 12/02/16 WITH COLISTIN,AVYCAZ, MEROPENEM AND IMIPENEM, GENTAMICIN, AMIKACIN. PULMONARY TOILET WHEN NECESSARY. FOLLOW-UP CHEST X-RAY TO CLEARING. STRICT CONTACT PRECAUTIONS FOR MULTIDRUG RESISTANT pSEUDOMONAS.
[2016-12-06] MEDS: (Lantus) Insulin Glargine, Recombinant SC SCH (21:28)
--- NOTE | 2016-12-06 23:22 | CP.PCM.PN ---
Subjective - Date & Time of Evaluation Date of Evaluation: 12/06/16 Time of Evaluation: 20:15 - Subjective Subjective: Pt seen and examined, less cough, less shortness of breath, no fever, continue on current meds Objective - Vital Signs/Intake and Output Vital Signs (last 24 hours): Temp Pulse Resp BP Pulse Ox 98.5 F 68 18 126/65 97 12/06/16 16:00 12/06/16 16:00 12/06/16 16:00 12/06/16 16:00 12/06/16 16:00 - Medications Medications: Current Medications Albuterol/Ipratropium (Duoneb 3 Mg/0.5 Mg (3 Ml) Ud) 3 ml INH RQ6 [facility] Last Admin: 12/06/16 20:33 Dose: 3 ml Benzonatate (Tessalon Perles) 100 mg PO TID [facility] Last Admin: 12/06/16 18:00 Dose: 100 mg Enoxaparin Sodium (Lovenox) 40 mg SC DAILY [facility] Last Admin: 12/06/16 09:58 Dose: 40 mg Gabapentin (Neurontin) 800 mg PO TID [facility] Last Admin: 12/06/16 18:00 Dose: 800 mg Guaifenesin (Robitussin) 300 mg PO Q4 [facility] Last Admin: 12/06/16 20:10 Dose: 300 mg Colistimethate Sodium 150 mg/ (Sodium Chloride) 100 mls @ 200 mls/hr IV Q12H [facility] Last Admin: 12/06/16 22:24 Dose: 200 mls/hr Gentamicin Sulfate 120 mg/ (Sodium Chloride) 103 mls @ 100 mls/hr IVPB Q24H [facility] Stop: 12/08/16 23:47 Last Admin: 12/06/16 22:22 Dose: 100 mls/hr Insulin Aspart (Novolog) 0 unit SC ACHS [facility] PRN Reason: Protocol Last Admin: 12/06/16 21:21 Dose: Not Given Insulin Glargine (Lantus) 30 unit SC HS [facility] Last Admin: 12/06/16 21:28 Dose: 30 units Lamotrigine (Lamictal) 100 mg PO Q12 [facility] Last Admin: 12/06/16 21:27 Dose: 100 mg Lorazepam (Ativan) 2 mg PO TID PRN PRN Reason: Anxiety Last Admin: 12/04/16 04:07 Dose: 2 mg Methylprednisolone (Solu-Medrol) 40 mg IVP Q12 [facility] Last Admin: 12/06/16 21:28 Dose: 40 mg Montelukast Sodium (Singulair) 10 mg PO HS [facility] Last Admin: 12/06/16 21:30 Dose: 10 mg Oxycodone/Acetaminophen (Percocet 5/325 Mg Tab) 2 tab PO Q4H PRN PRN Reason: Pain, severe (8-10) Stop: 12/08/16 14:01 Last Admin: 12/06/16 21:28 Dose: 2 tab Pantoprazole Sodium (Protonix Susp) 40 mg PO DAILY [facility] Last Admin: 12/06/16 09:58 Dose: 40 mg Phenol/Menthol (Phenaseptic 1.4% Throat [place]) 1 ml MT Q6 PRN PRN Reason: Sore Throat Quetiapine Fumarate (Seroquel) 400 mg PO Q12 [facility] Last Admin: 12/06/16 21:27 Dose: 400 mg Sertraline HCl (Zoloft) 100 mg PO [facility] Last Admin: 12/06/16 21:27 Dose: 100 mg Trazodone HCl (Desyrel) 150 mg PO [facility] Last Admin: 12/06/16 21:26 Dose: 150 mg - Labs Labs: 12/05/16 07:00 12/05/16 07:00 - Constitutional Appears: No Acute Distress - Head Exam Head Exam: ATRAUMATIC, NORMAL INSPECTION, NORMOCEPHALIC - Eye Exam Eye Exam: EOMI, Normal appearance, PERRL Pupil Exam: NORMAL ACCOMODATION, PERRL - Respiratory Exam Respiratory Exam: Clear to Ausculation Bilateral, NORMAL BREATHING PATTERN - Cardiovascular Exam Cardiovascular Exam: REGULAR RHYTHM, +S1, +S2. absent: Murmur - GI/Abdominal Exam GI & Abdominal Exam: Soft, Normal Bowel Sounds. absent: Tenderness
[2016-12-07] MEDS: guaiFENesin 100 mg/5 ml Syrup UD PO SCH ×6 (00:52→21:48)
[2016-12-07] MEDS: Albuterol-Ipratrop 3 mg / 0.5 (3 ml) UD INH SCH ×4 (01:19→19:07)
[2016-12-07 05:18] LABS: BETA 1 GLOBULIN 0.5 g/dL (0.4-0.6); BETA 2 GLOBULIN 0.6 g/dL (0.2-0.5); GAMMA GLOBULIN 1.9 g/dL (0.8-1.7)
[2016-12-07] MEDS: Enoxaparin 40 mg Syringe SC SCH (09:44)
[2016-12-07] MEDS: MethylPREDNISolone 40 mg Vial IVP SCH ×2 (09:44→21:48)
[2016-12-07] MEDS: Pantoprazole 40 mg Susp UD PO SCH (09:48)
[2016-12-07] MEDS: (Novolog) Insulin Aspart, Recombinant 100 u/ml 10 ml vial SC SCH ×4 (12:48→22:21)
--- NOTE | 2016-12-07 14:55 | CP.PCM.PN ---
Subjective - Date & Time of Evaluation Date of Evaluation: 12/07/16 Time of Evaluation: 20:35 - Subjective Subjective: Pt seen and examined, c/o cough and congestion. Pt is refusing Rehab, she is for antibiotcs as per I D for 3 more days Objective - Vital Signs/Intake and Output Vital Signs (last 24 hours): Temp Pulse Resp BP Pulse Ox 97.4 F L 66 20 123/76 95 12/07/16 08:00 12/07/16 08:00 12/07/16 08:00 12/07/16 08:00 12/07/16 08:00 - Medications Medications: Current Medications Albuterol/Ipratropium (Duoneb 3 Mg/0.5 Mg (3 Ml) Ud) 3 ml INH RQ6 [facility] Last Admin: 12/07/16 13:50 Dose: 3 ml Benzonatate (Tessalon Perles) 100 mg PO TID [facility] Last Admin: 12/07/16 14:15 Dose: 100 mg Enoxaparin Sodium (Lovenox) 40 mg SC DAILY [facility] Last Admin: 12/07/16 09:44 Dose: 40 mg Gabapentin (Neurontin) 800 mg PO TID [facility] Last Admin: 12/07/16 14:15 Dose: 800 mg Guaifenesin (Robitussin) 300 mg PO Q4 [facility] Last Admin: 12/07/16 12:50 Dose: 300 mg Colistimethate Sodium 150 mg/ (Sodium Chloride) 100 mls @ 200 mls/hr IV Q12H [facility] Last Admin: 12/07/16 11:31 Dose: 200 mls/hr Gentamicin Sulfate 120 mg/ (Sodium Chloride) 103 mls @ 100 mls/hr IVPB Q24H [facility] Stop: 12/08/16 23:47 Last Admin: 12/06/16 22:22 Dose: 100 mls/hr Insulin Aspart (Novolog) 0 unit SC ACHS [facility] PRN Reason: Protocol Last Admin: 12/07/16 12:48 Dose: 2 unit Insulin Glargine (Lantus) 30 unit SC HS [facility] Last Admin: 12/06/16 21:28 Dose: 30 units Lamotrigine (Lamictal) 100 mg PO Q12 [facility] Last Admin: 12/07/16 09:44 Dose: 100 mg Lorazepam (Ativan) 2 mg PO TID PRN PRN Reason: Anxiety Last Admin: 12/07/16 09:48 Dose: 2 mg Methylprednisolone (Solu-Medrol) 40 mg IVP Q12 [facility] Last Admin: 12/07/16 09:44 Dose: 40 mg Montelukast Sodium (Singulair) 10 mg PO [facility] Last Admin: 12/06/16 21:30 Dose: 10 mg Oxycodone/Acetaminophen (Percocet 5/325 Mg Tab) 2 tab PO Q4H PRN PRN Reason: Pain, severe (8-10) Stop: 12/08/16 14:01 Last Admin: 12/06/16 21:28 Dose: 2 tab Pantoprazole Sodium (Protonix Susp) 40 mg PO DAILY [facility] Last Admin: 12/07/16 09:48 Dose: 40 mg Phenol/Menthol (Phenaseptic 1.4% Throat [place]) 1 ml MT Q6 PRN PRN Reason: Sore Throat Quetiapine Fumarate (Seroquel) 400 mg PO Q12 [facility] Last Admin: 12/07/16 09:48 Dose: 400 mg Sertraline HCl (Zoloft) 100 mg PO [facility] Last Admin: 12/06/16 21:27 Dose: 100 mg Trazodone HCl (Desyrel) 150 mg PO [facility] Last Admin: 12/06/16 21:26 Dose: 150 mg - Labs Labs: 12/05/16 07:00 12/05/16 07:00 - Constitutional Appears: No Acute Distress - Head Exam Head Exam: ATRAUMATIC, NORMAL INSPECTION, NORMOCEPHALIC - Eye Exam Eye Exam: EOMI, Normal appearance, PERRL Pupil Exam: NORMAL ACCOMODATION, PERRL - Respiratory Exam Respiratory Exam: Decreased Breath Sounds, Rales, Rhonchi - Cardiovascular Exam Cardiovascular Exam: REGULAR RHYTHM, +S1, +S2. absent: Murmur - GI/Abdominal Exam GI & Abdominal Exam: Soft, Normal Bowel Sounds. absent: Tenderness Assessment and Plan (1) COPD exacerbation Status: Acute (2) Anemia Status: Acute (3) Asthma Status: Acute (4) COPD exacerbation Assessment & Plan: tracheobronchitis on gentamycin for 3 more days Status: Acute (5) Chronic back pain Status: Acute
[2016-12-07] MEDS: Oxycodone/Acetaminophen 5/325 mg Tab PO PRN (17:52)
--- NOTE | 2016-12-07 20:06 | PN ---
DATE: 12/07/2016 SUBJECTIVE: The patient is seen. The patient is currently in contact isolation. Clinically, she is improving. The patient has been compliant with medications. She states she is sleeping better. The patient also states that if suggested she will go for subacute rehabilitation,if there is a need.. PHYSICAL EXAMINATION VITAL SIGNS: Temperature is 98, pulse is 82, blood pressure 157/92, respirations 20, oxygen saturation is 96% on tracheostomy collar. REVIEW OF SYSTEMS: GENERAL: She is alert and oriented x3, the patient is sitting, doing much better. SKIN: No diaphoresis. HEENT: No headache. No dizziness. NECK: The patient has a tracheostomy collar. RESPIRATORY: No dyspnea. CARDIOVASCULAR: No chest pain. GASTROINTESTINAL: She is eating better. EXTREMITIES: No tremors. MUSCULOSKELETAL: Feels weak. NEUROLOGIC: Alert and oriented x3. GENITOURINARY: No urinary problems. MENTAL STATUS EXAMINATION: Obese female who looks stated age. Mood is calmer. Affect is reactive. Speech is spontaneous, oriented x3. Thought process is coherent. Thought content: No psychosis. No suicidal or homicidal ideation. The patient has been compliant with medications and reports she is sleeping better. She also states that she will give thought to go to the rehabilitation if there is really a need for her to go. The patient used to go to [facility]. No overt psychosis. Attention and memory seem to be fair. Insight and judgment fair. Impulse control is fair. IMPRESSION: History of schizoaffective disorder, bipolar type, history of exacerbation of chronic obstructive pulmonary disease, history of diabetes, hypertension, obesity. RECOMMENDATIONS: The patient is seen in bed. She will continue present psychiatric medicines as ordered. Continue antibiotics as ordered. The patient states she is amenable to go for subacute rehabilitation if there is a need to once medically cleared. Wellington Dejesus MD MTDD
[2016-12-07] MEDS: (Lantus) Insulin Glargine, Recombinant SC SCH (21:48)
[2016-12-08] MEDS: guaiFENesin 100 mg/5 ml Syrup UD PO SCH ×6 (01:00→21:25)
[2016-12-08] MEDS: Albuterol-Ipratrop 3 mg / 0.5 (3 ml) UD INH SCH ×4 (01:06→19:09)
[2016-12-08] MEDS: Oxycodone/Acetaminophen 5/325 mg Tab PO PRN ×2 (03:35→10:39)
[2016-12-08 08:10] LABS: BASO % 0.1 % (0.0-2.0); HEMATOCRIT 40.4 % (34.0-47.0); LYMPH # 1.4 K/uL (1.0-4.3); LYMPH % 8.3 % (20.0-40.0); MEAN CORPUSCULAR HEMOGLOBIN 26.1 pg (27.0-31.0); MEAN CORPUSCULAR HGB CONC 32.7 g/dL (33.0-37.0); MEAN PLATELET VOLUME 8.7 fL (7.2-11.7); PLATELET COUNT 162 K/uL (130-400); RED CELL DISTRIBUTION WIDTH 14.4 % (11.5-14.5)
[2016-12-08 08:37] LABS: CHLORIDE 96 mmol/L (98-107); POTASSIUM 4.3 mmol/L (3.6-5.2); SODIUM 134 mmol/L (132-148)
[2016-12-08] MEDS: (Novolog) Insulin Aspart, Recombinant 100 u/ml 10 ml vial SC SCH ×4 (08:37→21:21)
[2016-12-08 08:40] LABS: BLOOD UREA NITROGEN 29 mg/dL (7-17); CARBON DIOXIDE 25 mmol/L (22-30); GFR AFRICAN-AMERICAN > 60
[2016-12-08 08:41] LABS: CALCIUM 9.3 mg/dl (8.6-10.4); GLUCOSE,RANDOM 238 mg/dL (65-105)
[2016-12-08 10:06] LABS: NEUTROPHIL 89 % (50-75); TOTAL CELLS COUNTED 100
[2016-12-08] MEDS: Pantoprazole 40 mg Susp UD PO SCH (10:38)
[2016-12-08] MEDS: MethylPREDNISolone 40 mg Vial IVP SCH ×2 (10:38→22:13)
[2016-12-08] MEDS: Enoxaparin 40 mg Syringe SC SCH (10:39)
--- NOTE | 2016-12-08 16:31 | PN ---
DATE: 12/08/2016 SUBJECTIVE: The patient is seen with her family. The patient has been now refusing to go for subacute rehabilitation, but the patient according to the patient case manager will only need 3 more days of antibiotics. The patient wants to go home and her daughter wants to pick her up next week if she will be discharged, possibly discharge. Psych de la cruz, the patient is stable. She is sleeping much better. The patient was advised also not to touch her trach collar frequently with her fingers, especially the patient has recurrent infection. PHYSICAL EXAMINATION: VITAL SIGNS: Temperature is 97.4, pulse is 75, blood pressure 120/78, respirations 20, oxygen saturation 94% on trach collar. REVIEW OF SYSTEMS: GENERAL: The patient is more alert, verbal in her room. SKIN: No diaphoresis. HEENT: No headache or dizziness. NECK: Has trach collar. RESPIRATORY: Not in acute respiratory distress. CARDIOVASCULAR: No chest pain. GASTROINTESTINAL: She is eating better very well. EXTREMITIES: The patient moving extremities. MUSCULOSKELETAL: Feels weak. NEUROLOGIC: Alert and oriented x3. The patient is seen with her daughter, Toshia today. MENTAL STATUS EXAMINATION: Obese female who looks stated age, oriented x3. Speaks in whisper due to her trach. Affect is reactive. Mood is calmer. Thought process is coherent. Thought content: The patient states she does not go for subacute rehabilitation anymore. The patient states she will go home after she is medically cleared. No psychosis. No suicidal or homicidal ideation. Attention and memory seems to be fair. Insight and judgment fair. Impulse control is fair. IMPRESSION: Schizoaffective disorder, bipolar type, stable as well as exacerbation of chronic obstructive pulmonary disease as well as history of obesity, hypertension, pneumonia, status post tracheostomy. PLAN/RECOMMENDATIONS: The patient is seen. Medications reviewed. We will continue present psychiatric medicines. Continue antibiotics as ordered. Psych de la cruz, the patient is stable for discharge, to follow up with her PMD once medically cleared. There is no need to change her psychiatric medications at this time. Wellington Dejesus MD
--- NOTE | 2016-12-08 22:57 | CP.PCM.PN ---
Subjective - Date & Time of Evaluation Date of Evaluation: 12/08/16 Time of Evaluation: 18:00 - Subjective Subjective: Pt seen and evaluated, continues to c/o cough on antibiotics, less short of breath. psedomonas in sputum culture Objective - Vital Signs/Intake and Output Vital Signs (last 24 hours): Temp Pulse Resp BP Pulse Ox 98 F 84 20 136/77 96 12/08/16 16:02 12/08/16 16:02 12/08/16 16:02 12/08/16 16:02 12/08/16 16:02 Intake and Output: 12/08/16 12/09/16 18:59 06:59 Intake Total 910 Balance 910 - Medications Medications: Current Medications Albuterol/Ipratropium (Duoneb 3 Mg/0.5 Mg (3 Ml) Ud) 3 ml INH RQ6 [facility] Last Admin: 12/08/16 19:09 Dose: 3 ml Benzonatate (Tessalon Perles) 100 mg PO TID [facility] Last Admin: 12/08/16 18:30 Dose: 100 mg Enoxaparin Sodium (Lovenox) 40 mg SC DAILY [facility] Last Admin: 12/08/16 10:39 Dose: 40 mg Gabapentin (Neurontin) 800 mg PO TID [facility] Last Admin: 12/08/16 18:35 Dose: 800 mg Guaifenesin (Robitussin) 300 mg PO Q4 [facility] Last Admin: 12/08/16 21:25 Dose: 300 mg Colistimethate Sodium 150 mg/ (Sodium Chloride) 100 mls @ 200 mls/hr IV Q12H [facility] Last Admin: 12/08/16 22:13 Dose: 200 mls/hr Gentamicin Sulfate 120 mg/ (Sodium Chloride) 103 mls @ 100 mls/hr IVPB Q24H [facility] Stop: 12/08/16 23:47 Last Admin: 12/08/16 22:13 Dose: 100 mls/hr Insulin Aspart (Novolog) 0 unit SC ACHS [facility] PRN Reason: Protocol Last Admin: 12/08/16 21:21 Dose: Not Given Insulin Glargine (Lantus) 30 unit SC HS [facility] Last Admin: 12/07/16 21:48 Dose: 30 units Lamotrigine (Lamictal) 100 mg PO Q12 [facility] Last Admin: 12/08/16 22:13 Dose: 100 mg Lorazepam (Ativan) 2 mg PO TID PRN PRN Reason: Anxiety Last Admin: 12/08/16 18:35 Dose: 2 mg Methylprednisolone (Solu-Medrol) 40 mg IVP Q12 [facility] Last Admin: 12/08/16 22:13 Dose: 40 mg Montelukast Sodium (Singulair) 10 mg PO [facility] Last Admin: 12/08/16 22:13 Dose: 10 mg Pantoprazole Sodium (Protonix Susp) 40 mg PO DAILY [facility] Last Admin: 12/08/16 10:38 Dose: 40 mg Phenol/Menthol (Phenaseptic 1.4% Throat [place]) 1 ml MT Q6 PRN PRN Reason: Sore Throat Quetiapine Fumarate (Seroquel) 400 mg PO Q12 [facility] Last Admin: 12/08/16 22:12 Dose: 400 mg Sertraline HCl (Zoloft) 100 mg PO [facility] Last Admin: 12/08/16 22:12 Dose: 100 mg Trazodone HCl (Desyrel) 150 mg PO [facility] Last Admin: 12/08/16 22:12 Dose: 150 mg - Labs Labs: 12/08/16 08:02 12/08/16 08:02 - Constitutional Appears: No Acute Distress - Head Exam Head Exam: ATRAUMATIC, NORMAL INSPECTION, NORMOCEPHALIC - Eye Exam Eye Exam: EOMI, Normal appearance, PERRL Pupil Exam: NORMAL ACCOMODATION, PERRL - Respiratory Exam Respiratory Exam: Decreased Breath Sounds, Wheezes - Cardiovascular Exam Cardiovascular Exam: REGULAR RHYTHM, +S1, +S2. absent: Murmur - GI/Abdominal Exam GI & Abdominal Exam: Soft, Normal Bowel Sounds. absent: Tenderness Assessment and Plan (1) COPD exacerbation Status: Acute (2) Anemia Status: Acute (3) Asthma Status: Acute (4) COPD exacerbation Status: Acute (5) Chronic back pain Status: Acute
[2016-12-08] MEDS ORDERED: Oxycodone/Acetaminophen 5/325 mg Tab PO STA (23:04)
--- NOTE | 2016-12-08 23:15 | CP.PCM.PN ---
Subjective - Date & Time of Evaluation Date of Evaluation: 12/08/16 Time of Evaluation: 23:15 - Subjective Subjective: CHIEF COMPLAINTS TODAY : afebrile, secretions loosening feels less congested. sputum +ve pseudomonas aeruginosa SEEN BY PSYCHIATRY -DR. ZHU AND NOTED. ROS. HEENT : N. Resp : +ve SOB wheezing, cough Cardio : No CP, PND orthopnea GI : No abd. 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 Musculoskel : N Ext. : Pedal pulses intact, no edema or calf pain Derm : N Psych : N. PE. Pt. is alert awake in no distress. V.S As noted in the chart Head ,ear nose,throat and eyes : Normal. Neck : Supple with normal carotids. Lungs: scattered rhonchi -ve WHEEZE Heart : S1 & S2 normal . . No murmur. S4 + Abd : Soft non tender with normal bowel sounds. Neuro : Moves all ext. with no localized deficit. Ext : No edema with intact pulses. Neg. calf tenderness Derm : No rashes or decubitus ulcer. Radiology/Labs . reviewed. wbc 17.0 increasing ? steroids patient on prednisone 40 mg IV every 12 hourly. ESR 34 cREATININE 1.1/BUN 29. SPUTUM CULTURE +VE PSEUDOMONAS AERUGINOSA -S -GENTAMICIN Objective - Vital Signs/Intake and Output Vital Signs (last 24 hours): Temp Pulse Resp BP Pulse Ox 98 F 84 20 136/77 96 12/08/16 16:02 12/08/16 16:02 12/08/16 16:02 12/08/16 16:02 12/08/16 16:02 Intake and Output: 12/08/16 12/09/16 18:59 06:59 Intake Total 910 Balance 910 - Medications Medications: Current Medications Albuterol/Ipratropium (Duoneb 3 Mg/0.5 Mg (3 Ml) Ud) 3 ml INH RQ6 [facility] Last Admin: 12/08/16 19:09 Dose: 3 ml Benzonatate (Tessalon Perles) 100 mg PO TID [facility] Last Admin: 12/08/16 18:30 Dose: 100 mg Enoxaparin Sodium (Lovenox) 40 mg SC DAILY [facility] Last Admin: 12/08/16 10:39 Dose: 40 mg Gabapentin (Neurontin) 800 mg PO TID [facility] Last Admin: 12/08/16 18:35 Dose: 800 mg Guaifenesin (Robitussin) 300 mg PO Q4 [facility] Last Admin: 12/08/16 21:25 Dose: 300 mg Colistimethate Sodium 150 mg/ (Sodium Chloride) 100 mls @ 200 mls/hr IV Q12H [facility] Last Admin: 12/08/16 22:13 Dose: 200 mls/hr Gentamicin Sulfate 120 mg/ (Sodium Chloride) 103 mls @ 100 mls/hr IVPB Q24H [facility] Stop: 12/08/16 23:47 Last Admin: 12/08/16 22:13 Dose: 100 mls/hr Insulin Aspart (Novolog) 0 unit SC ACHS [facility] PRN Reason: Protocol Last Admin: 12/08/16 21:21 Dose: Not Given Insulin Glargine (Lantus) 30 unit SC HS [facility] Last Admin: 12/07/16 21:48 Dose: 30 units Lamotrigine (Lamictal) 100 mg PO Q12 [facility] Last Admin: 12/08/16 22:13 Dose: 100 mg Lorazepam (Ativan) 2 mg PO TID PRN PRN Reason: Anxiety Last Admin: 12/08/16 18:35 Dose: 2 mg Methylprednisolone (Solu-Medrol) 40 mg IVP Q12 [facility] Last Admin: 12/08/16 22:13 Dose: 40 mg Montelukast Sodium (Singulair) 10 mg PO HS [facility] Last Admin: 12/08/16 22:13 Dose: 10 mg Pantoprazole Sodium (Protonix Susp) 40 mg PO DAILY [facility] Last Admin: 12/08/16 10:38 Dose: 40 mg Phenol/Menthol (Phenaseptic 1.4% Throat [place]) 1 ml MT Q6 PRN PRN Reason: Sore Throat Quetiapine Fumarate (Seroquel) 400 mg PO Q12 [facility] Last Admin: 12/08/16 22:12 Dose: 400 mg Sertraline HCl (Zoloft) 100 mg PO HS [facility] Last Admin: 12/08/16 22:12 Dose: 100 mg Trazodone HCl (Desyrel) 150 mg PO HS [facility] Last Admin: 12/08/16 22:12 Dose: 150 mg - Labs Labs: 12/08/16 08:02 12/08/16 08:02 Assessment and Plan (1) Pneumonia Status: Acute (2) COPD exacerbation Status: Acute (3) Tracheostomy dependence Status: Acute (4) Anxiety and depression Status: Chronic (5) Morbid obesity Status: Acute (6) Diabetes mellitus Status: Chronic - Assessment and Plan (Free Text) Plan: ON COLISTIN 150MG IV [id number] 12/04/16 FOR PSEUDOMONAL COVERAGE x2 more days ADD IV GENTAMICIN 200MG IVPB LOADING DOSE TODAY.12/04/16 F/U 120 MG GENTAMICIN DAILY FOR 4 DAYS FOR SYNERGY.12/05/16-till12/08/16 fOLLOW-UP RENAL FUNCTIONS CLOSELY. ASK MICRO TO CHECK FOR SENSITIVITY OF PSEUDOMONAS IN SPUTUM 12/02/16 WITH COLISTIN,AVYCAZ, MEROPENEM AND IMIPENEM, GENTAMICIN, AMIKACIN.-p PULMONARY TOILET WHEN NECESSARY. FOLLOW-UP CHEST X-RAY TO CLEARING. tAPER OFF STEROIDS SLOWLY. STRICT CONTACT PRECAUTIONS FOR MULTIDRUG RESISTANT pSEUDOMONAS.
[2016-12-08] MEDS: (Lantus) Insulin Glargine, Recombinant SC SCH (23:22)
[2016-12-09] MEDS: guaiFENesin 100 mg/5 ml Syrup UD PO SCH ×5 (00:27→15:43)
[2016-12-09] MEDS: Albuterol-Ipratrop 3 mg / 0.5 (3 ml) UD INH SCH ×4 (01:17→20:00)
[2016-12-09] MEDS: (Novolog) Insulin Aspart, Recombinant 100 u/ml 10 ml vial SC SCH ×4 (08:29→21:47)
[2016-12-09] MEDS: MethylPREDNISolone 40 mg Vial IVP SCH ×2 (11:13→21:47)
[2016-12-09] MEDS: Pantoprazole 40 mg Susp UD PO SCH (11:13)
[2016-12-09] MEDS: Enoxaparin 40 mg Syringe SC SCH (11:13)
[2016-12-09] MEDS: Oxycodone/Acetaminophen 5/325 mg Tab PO PRN ×3 (11:14→23:44)
[2016-12-09 15:40] VITALS: RESP 20
--- NOTE | 2016-12-09 19:10 | RAD ---
PROCEDURE: CHEST RADIOGRAPH, 1 VIEW HISTORY: right lower lobe pneumonia. COMPARISON: Comparison is made to 12/04/2016 FINDINGS: LUNGS: Interval improvement in the left lower lung since the previous exam. The tracheostomy tube seen in place. PLEURA: No pneumothorax or pleural fluid seen. CARDIOVASCULAR: Normal. OSSEOUS STRUCTURES: No significant abnormalities. VISUALIZED UPPER ABDOMEN: Normal. OTHER FINDINGS: None. IMPRESSION: Interval mild improvement in the left lower lung since the previous exam. Otherwise no significant interval change.
[2016-12-09] MEDS: guaiFENesin 200 mg/10 ml Syrup UD PO SCH ×2 (19:59→23:44)
--- NOTE | 2016-12-09 21:05 | CP.PCM.PN ---
Subjective - Date & Time of Evaluation Date of Evaluation: 12/09/16 Time of Evaluation: 20:45 - Subjective Subjective: Pt seen and examined, is coughing , wheezing, on Iv gentamycin for psedomonas in sputum Objective - Vital Signs/Intake and Output Vital Signs (last 24 hours): Temp Pulse Resp BP Pulse Ox 97.8 F 80 20 125/81 97 12/09/16 15:39 12/09/16 15:39 12/09/16 15:39 12/09/16 15:39 12/09/16 15:39 Intake and Output: 12/09/16 12/10/16 18:59 06:59 Intake Total 910 Balance 910 - Medications Medications: Current Medications Albuterol/Ipratropium (Duoneb 3 Mg/0.5 Mg (3 Ml) Ud) 3 ml INH RQ6 [facility] Last Admin: 12/09/16 20:00 Dose: 3 ml Benzonatate (Tessalon Perles) 100 mg PO TID [facility] Last Admin: 12/09/16 17:36 Dose: 100 mg Enoxaparin Sodium (Lovenox) 40 mg SC DAILY [facility] Last Admin: 12/09/16 11:13 Dose: 40 mg Gabapentin (Neurontin) 800 mg PO TID [facility] Last Admin: 12/09/16 17:36 Dose: 800 mg Guaifenesin (Robitussin) 300 mg PO Q4 [facility] Last Admin: 12/09/16 19:59 Dose: 300 mg Colistimethate Sodium 150 mg/ (Sodium Chloride) 100 mls @ 200 mls/hr IV Q12H [facility] Last Admin: 12/09/16 11:14 Dose: 200 mls/hr Insulin Aspart (Novolog) 0 unit SC ACHS [facility] PRN Reason: Protocol Last Admin: 12/09/16 16:44 Dose: 4 unit Insulin Glargine (Lantus) 30 unit SC HS [facility] Last Admin: 12/08/16 23:22 Dose: 30 units Lamotrigine (Lamictal) 100 mg PO Q12 [facility] Last Admin: 12/09/16 11:13 Dose: 100 mg Methylprednisolone (Solu-Medrol) 40 mg IVP Q12 [facility] Last Admin: 12/09/16 11:13 Dose: 40 mg Montelukast Sodium (Singulair) 10 mg PO [facility] Last Admin: 12/08/16 22:13 Dose: 10 mg Oxycodone/Acetaminophen (Percocet 5/325 Mg Tab) 2 tab PO Q4H PRN PRN Reason: Pain, moderate (4-7) Stop: 12/12/16 08:35 Last Admin: 12/09/16 17:36 Dose: 2 tab Pantoprazole Sodium (Protonix Susp) 40 mg PO DAILY [facility] Last Admin: 12/09/16 11:13 Dose: 40 mg Phenol/Menthol (Phenaseptic 1.4% Throat [place]) 1 ml MT Q6 PRN PRN Reason: Sore Throat Quetiapine Fumarate (Seroquel) 400 mg PO Q12 [facility] Last Admin: 12/09/16 11:13 Dose: 400 mg Sertraline HCl (Zoloft) 100 mg PO HS [facility] Last Admin: 12/08/16 22:12 Dose: 100 mg Trazodone HCl (Desyrel) 150 mg PO [facility] Last Admin: 12/08/16 22:12 Dose: 150 mg - Labs Labs: 12/08/16 08:02 12/08/16 08:02 - Constitutional Appears: No Acute Distress - Head Exam Head Exam: ATRAUMATIC, NORMAL INSPECTION, NORMOCEPHALIC - Eye Exam Eye Exam: EOMI, Normal appearance, PERRL Pupil Exam: NORMAL ACCOMODATION, PERRL - Respiratory Exam Respiratory Exam: Decreased Breath Sounds, Wheezes - Cardiovascular Exam Cardiovascular Exam: REGULAR RHYTHM, +S1, +S2. absent: Murmur - GI/Abdominal Exam GI & Abdominal Exam: Soft, Normal Bowel Sounds. absent: Tenderness Assessment and Plan (1) COPD exacerbation Assessment & Plan: continue current medications nebulizer PRN antibiotics Status: Acute (2) Anemia Status: Acute (3) Asthma Status: Acute (4) COPD exacerbation Status: Acute (5) Chronic back pain Status: Acute
[2016-12-09] MEDS: (Lantus) Insulin Glargine, Recombinant SC SCH (21:51)
--- NOTE | 2016-12-09 23:19 | CP.PCM.PN ---
Subjective - Date & Time of Evaluation Date of Evaluation: 12/09/16 Time of Evaluation: 23:19 - Subjective Subjective: CHIEF COMPLAINTS TODAY : afebrile, STILL COUGHING secretions loosening feels less congested. sputum +ve pseudomonas aeruginosa ROS. HEENT : N. +VE TRACH, Resp : +ve SOB wheezing, cough Cardio : No CP, PND orthopnea GI : No abd. Pain, n/v HOG CUTTER : No headache , focal deficit. Musculoskel : N Ext. : Pedal pulses intact, no edema or calf pain Derm : N Psych : N. PE. Pt. is alert awake in no distress. V.S As noted in the chart Head ,ear nose,throat and eyes : Normal. +VE TRACH. Neck : Supple with normal carotids. Lungs: scattered rhonchi -ve WHEEZE Heart : S1 & S2 normal . . No murmur. S4 + Abd : Soft non tender with normal bowel sounds. Neuro : Moves all ext. with no localized deficit. Ext : No edema with intact pulses. Neg. calf tenderness Derm : No rashes or decubitus ulcer. Radiology/Labs . reviewed. CXR 12/09/16 -INTERVAL IMPROVEMENT IN LEFT LOWER LUNG. See full report. wbc 17.0 increasing ? steroids patient on prednisone 40 mg IV every 12 hourly. ESR 34 cREATININE 1.1/BUN 29. SPUTUM CULTURE +VE PSEUDOMONAS AERUGINOSA -S -GENTAMICIN Objective - Vital Signs/Intake and Output Vital Signs (last 24 hours): Temp Pulse Resp BP Pulse Ox 97.8 F 106 H 20 134/76 97 12/09/16 15:39 12/09/16 22:00 12/09/16 15:39 12/09/16 22:00 12/09/16 15:39 Intake and Output: 12/09/16 12/10/16 18:59 06:59 Intake Total 910 Balance 910 - Medications Medications: Current Medications Albuterol/Ipratropium (Duoneb 3 Mg/0.5 Mg (3 Ml) Ud) 3 ml INH RQ6 [facility] Last Admin: 12/09/16 20:00 Dose: 3 ml Benzonatate (Tessalon Perles) 100 mg PO TID [facility] Last Admin: 12/09/16 17:36 Dose: 100 mg Enoxaparin Sodium (Lovenox) 40 mg SC DAILY [facility] Last Admin: 12/09/16 11:13 Dose: 40 mg Gabapentin (Neurontin) 800 mg PO TID [facility] Last Admin: 12/09/16 17:36 Dose: 800 mg Guaifenesin (Robitussin) 300 mg PO Q4 [facility] Last Admin: 12/09/16 19:59 Dose: 300 mg Colistimethate Sodium 150 mg/ (Sodium Chloride) 100 mls @ 200 mls/hr IV Q12H [facility] Last Admin: 12/09/16 11:14 Dose: 200 mls/hr Insulin Aspart (Novolog) 0 unit SC ACHS [facility] PRN Reason: Protocol Last Admin: 12/09/16 21:47 Dose: Not Given Insulin Glargine (Lantus) 30 unit SC HS [facility] Last Admin: 12/09/16 21:51 Dose: 30 units Lamotrigine (Lamictal) 100 mg PO Q12 [facility] Last Admin: 12/09/16 21:43 Dose: 100 mg Lorazepam (Ativan) 2 mg PO TID PRN PRN Reason: Anxiety Last Admin: 12/09/16 22:13 Dose: 2 mg Methylprednisolone (Solu-Medrol) 40 mg IVP Q12 [facility] Last Admin: 12/09/16 21:47 Dose: 40 mg Montelukast Sodium (Singulair) 10 mg PO [facility] Last Admin: 12/09/16 21:43 Dose: 10 mg Oxycodone/Acetaminophen (Percocet 5/325 Mg Tab) 2 tab PO Q4H PRN PRN Reason: Pain, moderate (4-7) Stop: 12/12/16 08:35 Last Admin: 12/09/16 17:36 Dose: 2 tab Pantoprazole Sodium (Protonix Susp) 40 mg PO DAILY [facility] Last Admin: 12/09/16 11:13 Dose: 40 mg Phenol/Menthol (Phenaseptic 1.4% Throat [place]) 1 ml MT Q6 PRN PRN Reason: Sore Throat Quetiapine Fumarate (Seroquel) 400 mg PO Q12 [facility] Last Admin: 12/09/16 21:43 Dose: 400 mg Sertraline HCl (Zoloft) 100 mg PO [facility] Last Admin: 12/09/16 21:43 Dose: 100 mg Trazodone HCl (Desyrel) 150 mg PO [facility] Last Admin: 12/09/16 21:42 Dose: 150 mg - Labs Labs: 12/08/16 08:02 12/08/16 08:02 Assessment and Plan (1) Pneumonia Status: Acute (2) COPD exacerbation Status: Acute (3) Tracheostomy dependence Status: Acute (4) Anxiety and depression Status: Chronic (5) Morbid obesity Status: Acute (6) Diabetes mellitus Status: Chronic - Assessment and Plan (Free Text) Plan: ON COLISTIN 150MG IV [id number] 12/04/16 FOR PSEUDOMONAL COVERAGE x2 more days OFF IV GENTAMICIN 12/04/16-12/08/16 fOLLOW-UP RENAL FUNCTIONS CLOSELY. PULMONARY TOILET WHEN NECESSARY. FOLLOW-UP CHEST X-RAY TO CLEARING. tAPER OFF STEROIDS SLOWLY. STRICT CONTACT PRECAUTIONS FOR MULTIDRUG RESISTANT pSEUDOMONAS.
[2016-12-10] MEDS: Albuterol-Ipratrop 3 mg / 0.5 (3 ml) UD INH SCH ×4 (03:07→19:56)
[2016-12-10] MEDS: guaiFENesin 200 mg/10 ml Syrup UD PO SCH ×5 (04:00→19:50)
[2016-12-10] MEDS: (Novolog) Insulin Aspart, Recombinant 100 u/ml 10 ml vial SC SCH ×4 (09:19→21:58)
[2016-12-10] MEDS: Oxycodone/Acetaminophen 5/325 mg Tab PO PRN ×2 (09:23→15:03)
[2016-12-10] MEDS: MethylPREDNISolone 40 mg Vial IVP SCH ×3 (12:10→22:00)
[2016-12-10] MEDS: Enoxaparin 40 mg Syringe SC SCH (12:19)
[2016-12-10] MEDS: Pantoprazole 40 mg Susp UD PO SCH (12:19)
--- NOTE | 2016-12-10 17:10 | CARD ---
APPROVED REPORT EKG Measurement Heart [id number] <Conclusion> Normal sinus rhythm Minimal voltage criteria for LVH, may be normal variant Borderline ECG
--- NOTE | 2016-12-10 21:40 | CP.PCM.PN ---
Subjective - Date & Time of Evaluation Date of Evaluation: 12/10/16 Time of Evaluation: 18:45 - Subjective Subjective: PT IS SEEN AND EVALUATED, DOING WELL.ON GENTAMYCIN Objective - Vital Signs/Intake and Output Vital Signs (last 24 hours): Temp Pulse Resp BP Pulse Ox 97.4 F L 88 20 122/75 95 12/10/16 16:37 12/10/16 16:37 12/10/16 16:37 12/10/16 16:37 12/10/16 16:37 Intake and Output: 12/10/16 12/11/16 18:59 06:59 Intake Total 950 Balance 950 - Medications Medications: Current Medications Albuterol/Ipratropium (Duoneb 3 Mg/0.5 Mg (3 Ml) Ud) 3 ml INH RQ6 [facility] Last Admin: 12/10/16 19:56 Dose: 3 ml Benzonatate (Tessalon Perles) 100 mg PO TID [facility] Last Admin: 12/10/16 17:58 Dose: 100 mg Gabapentin (Neurontin) 800 mg PO TID [facility] Last Admin: 12/10/16 17:58 Dose: 800 mg Guaifenesin (Robitussin) 300 mg PO Q4 [facility] Last Admin: 12/10/16 19:50 Dose: 300 mg Colistimethate Sodium 150 mg/ (Sodium Chloride) 100 mls @ 200 mls/hr IV Q12H [facility] Last Admin: 12/10/16 12:10 Dose: Not Given Insulin Aspart (Novolog) 0 unit SC ACHS [facility] PRN Reason: Protocol Last Admin: 12/10/16 17:16 Dose: Not Given Insulin Glargine (Lantus) 30 unit SC HS [facility] Last Admin: 12/09/16 21:51 Dose: 30 units Lamotrigine (Lamictal) 100 mg PO Q12 [facility] Last Admin: 12/10/16 12:19 Dose: 100 mg Lorazepam (Ativan) 2 mg PO TID PRN PRN Reason: Anxiety Last Admin: 12/09/16 22:13 Dose: 2 mg Methylprednisolone (Solu-Medrol) 40 mg IVP Q12 [facility] Last Admin: 12/10/16 12:10 Dose: Not Given Montelukast Sodium (Singulair) 10 mg PO HS [facility] Last Admin: 12/09/16 21:43 Dose: 10 mg Oxycodone/Acetaminophen (Percocet 5/325 Mg Tab) 2 tab PO Q4H PRN PRN Reason: Pain, moderate (4-7) Stop: 12/12/16 08:35 Last Admin: 12/10/16 15:03 Dose: 2 tab Pantoprazole Sodium (Protonix Susp) 40 mg PO DAILY [facility] Last Admin: 12/10/16 12:19 Dose: 40 mg Phenol/Menthol (Phenaseptic 1.4% Throat [place]) 1 ml MT Q6 PRN PRN Reason: Sore Throat Quetiapine Fumarate (Seroquel) 400 mg PO Q12 [facility] Last Admin: 12/10/16 12:19 Dose: 400 mg Sertraline HCl (Zoloft) 100 mg PO HS [facility] Last Admin: 12/09/16 21:43 Dose: 100 mg Trazodone HCl (Desyrel) 150 mg PO [facility] Last Admin: 12/09/16 21:42 Dose: 150 mg - Labs Labs: 12/08/16 08:02 12/08/16 08:02 - Constitutional Appears: No Acute Distress - Head Exam Head Exam: ATRAUMATIC, NORMAL INSPECTION, NORMOCEPHALIC - Eye Exam Eye Exam: EOMI, Normal appearance, PERRL Pupil Exam: NORMAL ACCOMODATION, PERRL - Respiratory Exam Respiratory Exam: Clear to Ausculation Bilateral, NORMAL BREATHING PATTERN - Cardiovascular Exam Cardiovascular Exam: REGULAR RHYTHM, +S1, +S2. absent: Murmur - GI/Abdominal Exam GI & Abdominal Exam: Soft, Normal Bowel Sounds. absent: Tenderness Assessment and Plan (1) COPD exacerbation Status: Acute (2) Anemia Status: Acute (3) Asthma Status: Acute (4) COPD exacerbation Status: Acute (5) Chronic back pain Status: Acute
[2016-12-10] MEDS: (Lantus) Insulin Glargine, Recombinant SC SCH (21:58)
[2016-12-11] MEDS: guaiFENesin 200 mg/10 ml Syrup UD PO SCH ×3 (00:05→13:00)
[2016-12-11] MEDS: Oxycodone/Acetaminophen 5/325 mg Tab PO PRN ×3 (01:46→13:53)
[2016-12-11] MEDS: Albuterol-Ipratrop 3 mg / 0.5 (3 ml) UD INH SCH ×3 (01:54→14:11)
[2016-12-11] MEDS: (Novolog) Insulin Aspart, Recombinant 100 u/ml 10 ml vial SC SCH ×3 (09:40→17:50)
[2016-12-11] MEDS: MethylPREDNISolone 40 mg Vial IVP SCH (10:48)
[2016-12-11] MEDS: Pantoprazole 40 mg Susp UD PO SCH (10:49)
--- NOTE | 2016-12-11 14:55 | CP.PCM.PN ---
Subjective - Date & Time of Evaluation Date of Evaluation: 12/11/16 Time of Evaluation: 12:00 - Subjective Subjective: Pt seen today , awake, alert, NAD , sob improved, less sputum production a febrile Objective - Vital Signs/Intake and Output Vital Signs (last 24 hours): Temp Pulse Resp BP Pulse Ox 98 F 75 20 129/81 99 12/11/16 08:00 12/11/16 08:00 12/11/16 08:00 12/11/16 08:00 12/11/16 08:00 - Medications Medications: Current Medications Albuterol/Ipratropium (Duoneb 3 Mg/0.5 Mg (3 Ml) Ud) 3 ml INH RQ6 [facility] Last Admin: 12/11/16 14:11 Dose: 3 ml Benzonatate (Tessalon Perles) 100 mg PO TID [facility] Last Admin: 12/11/16 13:51 Dose: 100 mg Gabapentin (Neurontin) 800 mg PO TID [facility] Last Admin: 12/11/16 13:51 Dose: 800 mg Guaifenesin (Robitussin) 300 mg PO Q4 [facility] Last Admin: 12/11/16 13:00 Dose: 300 mg Colistimethate Sodium 150 mg/ (Sodium Chloride) 100 mls @ 200 mls/hr IV Q12H [facility] Last Admin: 12/11/16 12:00 Dose: 200 mls/hr Insulin Aspart (Novolog) 0 unit SC ACHS [facility] PRN Reason: Protocol Last Admin: 12/11/16 13:51 Dose: 1 unit Insulin Glargine (Lantus) 30 unit SC HS [facility] Last Admin: 12/10/16 21:58 Dose: 30 units Lamotrigine (Lamictal) 100 mg PO Q12 [facility] Last Admin: 12/11/16 10:49 Dose: 100 mg Lorazepam (Ativan) 2 mg PO TID PRN PRN Reason: Anxiety Last Admin: 12/09/16 22:13 Dose: 2 mg Methylprednisolone (Solu-Medrol) 40 mg IVP Q12 [facility] Last Admin: 12/11/16 10:48 Dose: 40 mg Montelukast Sodium (Singulair) 10 mg PO HS [facility] Last Admin: 12/10/16 22:03 Dose: 10 mg Oxycodone/Acetaminophen (Percocet 5/325 Mg Tab) 2 tab PO Q4H PRN PRN Reason: Pain, moderate (4-7) Stop: 12/12/16 08:35 Last Admin: 12/11/16 13:53 Dose: 2 tab Pantoprazole Sodium (Protonix Susp) 40 mg PO DAILY [facility] Last Admin: 12/11/16 10:49 Dose: 40 mg Phenol/Menthol (Phenaseptic 1.4% Throat [place]) 1 ml MT Q6 PRN PRN Reason: Sore Throat Quetiapine Fumarate (Seroquel) 400 mg PO Q12 [facility] Last Admin: 12/11/16 10:49 Dose: 400 mg Sertraline HCl (Zoloft) 100 mg PO [facility] Last Admin: 12/10/16 22:03 Dose: 100 mg Trazodone HCl (Desyrel) 150 mg PO [facility] Last Admin: 12/10/16 22:03 Dose: 150 mg - Labs Labs: 12/08/16 08:02 12/08/16 08:02 Assessment and Plan - Assessment and Plan (Free Text) Assessment: A/P 61 yr old female admitted for SOB , /exc. COPD SPUTUM culture positive - psuedomonus and sensitive to gentamicin , treated with genta and colistin Patient refused the idea of LINDSEY d/w Dr. Celis , cleared for discharge home today from ID stand point D/W Dr. Khan, cleared for discharge home today and f/u with PMD in 1 week CM made aware of discharge , pt needs transportation and home care
[2016-12-11 16:13] VITALS: BP 132/86; PULSE 85; TEMP 98.2; O2SAT 98
--- NOTE | 2016-12-11 21:51 | CP.PCM.DIS ---
Provider - Provider Date of Admission: 12/02/16 13:47 Attending physician: Ad Khan MD Time Spent in preparation of Discharge (in minutes): 56 Diagnosis - Discharge Diagnosis (1) COPD exacerbation Status: Acute (2) Anemia Status: Acute (3) Asthma Status: Acute (4) COPD exacerbation Status: Acute (5) Chronic back pain Status: Acute Hospital Course - Lab Results Lab Results: Micro Results 12/10/16 16:47 Trachasp Gram Stain - Final 12/10/16 16:47 Trachasp Sputum Culture - Preliminary Gram Negative [place]rish 12/02/16 15:00 Sputum Gram Stain - Final 12/02/16 15:00 Sputum Sputum Culture - Final Pseudomonas Aeruginosa 12/02/16 02:30 Blood-Venous Blood Culture - Final NO GROWTH AFTER 5 DAYS 12/02/16 02:30 Blood-Venous Gram Stain - Final TEST NOT PERFORMED 12/02/16 02:00 Blood-Venous Blood Culture - Final NO GROWTH AFTER 5 DAYS 12/02/16 02:00 Blood-Venous Gram Stain - Final TEST NOT PERFORMED 12/04/16 21:15 Throat Group A Strep Throat Culture - Final NO BETA STREP GROUP A ISOLATED. Most Recent Lab Values WBC 17.0 K/uL (4.8-10.8) H 12/08/16 08:02 RBC 5.05 Mil/uL (3.80-5.20) 12/08/16 08:02 Hgb 13.2 g/dL (11.0-16.0) 12/08/16 08:02 Hct 40.4 % (34.0-47.0) 12/08/16 08:02 MCV 80.0 fL (81.0-99.0) L 12/08/16 08:02 MCH 26.1 pg (27.0-31.0) L 12/08/16 08:02 MCHC 32.7 g/dL (33.0-37.0) L 12/08/16 08:02 RDW 14.4 % (11.5-14.5) 12/08/16 08:02 Plt Count 162 K/uL (130-400) 12/08/16 08:02 MPV 8.7 fL (7.2-11.7) 12/08/16 08:02 Neut % (Auto) 85.6 % (50.0-75.0) H 12/08/16 08:02 Lymph % (Auto) 8.3 % (20.0-40.0) L 12/08/16 08:02 [place] % (Auto) 6.0 % (0.0-10.0) 12/08/16 08:02 Eos % (Auto) 0.0 % (0.0-4.0) 12/08/16 08:02 Baso % (Auto) 0.1 % (0.0-2.0) 12/08/16 08:02 Neut # 14.5 K/uL (1.8-7.0) H 12/08/16 08:02 Lymph # 1.4 K/uL (1.0-4.3) 12/08/16 08:02 [place] # 1.0 K/uL (0.0-0.8) H 12/08/16 08:02 Eos # 0.0 K/uL (0.0-0.7) 12/08/16 08:02 Baso # 0.0 K/uL (0.0-0.2) 12/08/16 08:02 Neutrophils % (Manual) 89 % (50-75) H 12/08/16 08:02 Lymphocytes % (Manual) 7 % (20-40) L 12/08/16 08:02 Monocytes % (Manual) 4 % (0-10) 12/08/16 08:02 Platelet Estimate Normal (NORMAL) 12/08/16 08:02 ESR 34 mm/hr (0-20) H 12/05/16 07:00 Puncture Site Rr 12/02/16 09:49 pCO2 44 mm/Hg (35-45) 12/02/16 09:49 pO2 78 mm/Hg (80-100) L 12/02/16 09:49 HCO3 23.1 mmol/L (21-28) 12/02/16 09:49 ABG pH 7.34 (7.35-7.45) L 12/02/16 09:49 ABG Total CO2 25.1 mmol/L (22-28) 12/02/16 09:49 ABG O2 Saturation 96.8 % (95-98) 12/02/16 09:49 ABG Base Excess -2.2 mmol/L (-2.0-3.0) L 12/02/16 09:49 ABG Hemoglobin 13.0 g/dL (11.7-17.4) 12/02/16 09:49 ABG Carboxyhemoglobin 1.7 % (0.5-1.5) H 12/02/16 09:49 POC ABG HHb (Measured) 3.1 % (0.0-5.0) 12/02/16 09:49 ABG Methemoglobin 1.3 % (0.0-3.0) 12/02/16 09:49 Rob Test Pos 12/02/16 09:49 A-a O2 Difference 117.0 mm/Hg 12/02/16 09:49 Respiratory Index 1.5 12/02/16 09:49 Hgb O2 Saturation 94.0 % (95.0-98.0) L 12/02/16 09:49 FiO2 35.0 % 12/02/16 09:49 Sodium 134 mmol/L (132-148) 12/08/16 08:02 Potassium 4.3 mmol/L (3.6-5.2) 12/08/16 08:02 Chloride 96 mmol/L (98-107) L 12/08/16 08:02 Carbon Dioxide 25 mmol/L (22-30) 12/08/16 08:02 Anion Gap 17 (10-20) 12/08/16 08:02 BUN 29 mg/dL (7-17) H 12/08/16 08:02 Creatinine 1.1 mg/dL (0.7-1.2) 12/08/16 08:02 Est GFR ( Amer) > 60 12/08/16 08:02 Est GFR (Non-Af Amer) 51 12/08/16 08:02 POC Glucose (mg/dL) 249 mg/dL (65-110) H 12/11/16 16:01 Random Glucose 238 mg/dL (65-105) H 12/08/16 08:02 Calcium 9.3 mg/dl (8.6-10.4) 12/08/16 08:02 Total Bilirubin 0.5 mg/dL (0.2-1.3) 12/05/16 07:00 Direct Bilirubin 0.3 mg/dL (0.0-0.4) 12/05/16 07:00 AST 22 U/L (14-36) 12/05/16 07:00 ALT 29 U/L (9-52) 12/05/16 07:00 Alkaline Phosphatase 105 U/L (38-126) 12/05/16 07:00 Total Creatine Kinase 67 U/L (30-135) 12/01/16 22:55 CK-MB (Mass) 1.11 ng/mL (0.0-3.38) 12/01/16 22:55 Troponin I, Quant 0.0400 ng/mL (0.00-0.120) 12/01/16 22:55 C-React Prot High Sens 5.01 mg/L (1.00-3.00) H 12/05/16 07:00 NT-Pro-B Natriuret Pep 66.6 pg/mL (0-900) 12/05/16 07:00 Total Protein 8.7 g/dL (6.3-8.3) H 12/05/16 07:00 Total Protein (PEP) 7.7 g/dL (6.1-8.1) 12/04/16 07:52 Albumin 4.0 g/dL (3.5-5.0) 12/05/16 07:00 Albumin (PEP) 3.7 g/dL (3.8-4.8) L 12/04/16 07:52 Globulin 4.7 gm/dL (2.2-3.9) H 12/05/16 07:00 Albumin/Globulin Ratio 0.9 (1.0-2.1) L 12/05/16 07:00 Tdvqe-7-Akvfkqqgp 0.3 g/dL (0.2-0.3) 12/04/16 07:52 Dfkka-4-Eibqygtha 0.8 g/dL (0.5-0.9) 12/04/16 07:52 Wcpp-8-Tugnczcl 0.5 g/dL (0.4-0.6) 12/04/16 07:52 Rusn-4-Hoofoori 0.6 g/dL (0.2-0.5) H 12/04/16 07:52 Gamma Globulins 1.9 g/dL (0.8-1.7) H 12/04/16 07:52 Abnorm Protein Band 1 TEST NOT PERFORMED 12/04/16 07:52 Abnorm Protein Band 2 TEST NOT PERFORMED 12/04/16 07:52 Abnorm Protein Band 3 TEST NOT PERFORMED 12/04/16 07:52 MARIZA & SPEP Interp See note 12/04/16 07:52 - Hospital Course Hospital Course: A/P 61 yr old female admitted for SOB , /exc. COPD , pt is feeling better and is for discharge SPUTUM culture positive - psuedomonus and sensitive to gentamicin , treated with genta and colistin Patient refused the idea of LINDSEY d/w Dr. Celis , cleared for discharge home today from ID stand point discharge home today and f/u with me in 1 week pt needs transportation and home care Discharge Exam - Head Exam Head Exam: ATRAUMATIC, NORMAL INSPECTION, NORMOCEPHALIC - Eye Exam Eye Exam: EOMI, Normal appearance, PERRL Pupil Exam: NORMAL ACCOMODATION, PERRL - ENT Exam ENT Exam: Mucous Membranes Moist - Respiratory Exam Respiratory Exam: Clear to PA & Lateral, NORMAL BREATHING PATTERN - Cardiovascular Exam Cardiovascular Exam: REGULAR RHYTHM, +S1, +S2 - GI/Abdominal Exam GI & Abdominal Exam: Normal Bowel Sounds Discharge Plan - Follow Up Plan Condition: FAIR Disposition: HOME/ ROUTINE Instructions: COPD (Chronic Obstructive Pulmonary Disease) (DC) Additional Instructions: Please f/u with your doctor in 1 week Continue medication as per Med. Rec. Referrals: Wayne Celis MD [Staff Provider] - Perico Magaña MD [Staff Provider] -
--- NOTE | 2016-12-12 17:32 | CARD ---
APPROVED REPORT EKG Measurement Heart [id number] IN 150P49 [id number] <Conclusion> Normal sinus rhythm Minimal voltage criteria for LVH, may be normal variant Abnormal ECG
== END 2016-12-11 19:32 | disposition home health service (06) | DRG 541 ==
LOC: C.ER 22:18 → C.9E 12-02 02:27 → C.5S 12-02 04:39 → OBSVTOIN 12-02 13:47 → C.5S 12-05 20:18
PROVIDERS: ADMIT Internal Medicine; ATTEND Internal Medicine
DX: J44.0 Chronic obstructive pulmonary disease with (acute) lower respiratory infection (principal); J15.1 Pneumonia due to Pseudomonas; J84.9 Interstitial pulmonary disease, unspecified; I11.0 Hypertensive heart disease with heart failure; Z93.0 Tracheostomy status; I50.9 Heart failure, unspecified; Z99.81 Dependence on supplemental oxygen; Z68.41 Body mass index [BMI] 40.0-44.9, adult; E11.9 Type 2 diabetes mellitus without complications; D64.9 Anemia, unspecified; F25.0 Schizoaffective disorder, bipolar type; J44.1 Chronic obstructive pulmonary disease with (acute) exacerbation; E66.01 Morbid (severe) obesity due to excess calories; F41.9 Anxiety disorder, unspecified; G47.30 Sleep apnea, unspecified; G89.29 Other chronic pain; Z16.24 Resistance to multiple antibiotics; Z16.29 Resistance to other single specified antibiotic; Z87.01 Personal history of pneumonia (recurrent); Z90.49 Acquired absence of other specified parts of digestive tract

== ENCOUNTER 2017-02-27 18:14 | Inpatient (IN) | payer OTHER ==
[2017-02-27 18:14] VITALS: BMI 45.6
[2017-02-27] MEDS ORDERED: Albuterol-Ipratrop 3 mg / 0.5 (3 ml) UD ONE ×2 (18:30→18:59)
[2017-02-27] MEDS ORDERED: Albuterol-Ipratrop 3 mg / 0.5 (3 ml) UD IH STA (18:33)
[2017-02-27] MEDS ORDERED: DiphenhydrAMINE 50 mg/ml Inj IVP STA ×2 (18:34→18:35)
[2017-02-27] MEDS ORDERED: DiphenhydrAMINE 50 mg/ml Inj ONE (18:34)
[2017-02-27 18:48] LABS: BASO # 0.1 K/uL (0.0-0.2); BASO % 0.4 % (0.0-2.0); EOS # 0.1 K/uL (0.0-0.7); EOS % 0.6 % (0.0-4.0); HEMOGLOBIN 13.7 g/dL (11.0-16.0); LYMPH # 4.4 K/uL (1.0-4.3); LYMPH % 27.6 % (20.0-40.0); MEAN CELL VOLUME 79.6 fL (81.0-99.0); MEAN CORPUSCULAR HEMOGLOBIN 26.5 pg (27.0-31.0); MEAN CORPUSCULAR HGB CONC 33.3 g/dL (33.0-37.0); MEAN PLATELET VOLUME 8.3 fL (7.2-11.7); MONO # 1.3 K/uL (0.0-0.8); NEUT # 10.1 K/uL (1.8-7.0); NEUT % 63.4 % (50.0-75.0); NRBC % 0.1 % (0.0-2.0); RBC 5.16 Mil/uL (3.80-5.20); RED CELL DISTRIBUTION WIDTH 16.4 % (11.5-14.5)
[2017-02-27 18:55] LABS: ALBUMIN 4.5 g/dL (3.5-5.0); ALT/SGPT 19 U/L (9-52); AST/SGOT 27 U/L (14-36); BLOOD UREA NITROGEN 24 mg/dL (7-17); CALCIUM 9.6 mg/dl (8.6-10.4); GFR AFRICAN-AMERICAN > 60; GFR NON-AFRICAN AMERICAN 57
[2017-02-27 18:56] LABS: ALB/GLOB RATIO 0.8 (1.0-2.1)
[2017-02-27 18:58] LABS: INR 1.1
[2017-02-27 19:07] LABS: B-TYPE NATRIURETIC PEPTIDE 218 pg/mL (0-900)
[2017-02-27] MEDS ORDERED: Benzoin Compound Tincture (60 ml) ONE (19:16)
[2017-02-27] MEDS ORDERED: Clindamycin 600mg/50ml D5W 600 MG/50 ML VIAL IVPB STA (19:55)
[2017-02-27] MEDS ORDERED: Aztreonam 2 GM in Sodium Chloride 0.9% 100 ML IVPB STA (19:55)
[2017-02-27] MEDS ORDERED: Morphine 4 MG/ML VIAL ONE (20:49)
[2017-02-27] MEDS ORDERED: Clindamycin 600mg/50ml NS 600 MG/50 ML BAG IVPB ONE (20:49)
[2017-02-27 21:11] LABS: ARTERIAL BLOOD GAS HCO3 22.6 mmol/L (21-28); ARTERIAL BLOOD GAS O2 SAT 98.9 % (95-98); ARTERIAL BLOOD GAS PCO2 39 mm/Hg (35-45); ARTERIAL BLOOD GAS PH 7.36 (7.35-7.45); ARTERIAL BLOOD GAS PO2 368 mm/Hg (80-100); ARTERIAL BLOOD GAS TCO2 23.2 mmol/L (22-28)
--- NOTE | 2017-02-27 21:22 | C.PDOC ---
Time Seen by Provider: 02/27/17 18:31 Chief Complaint (Nursing): Respiratory Distress History Per: Patient, EMS History/Exam Limitations: clinical condition Onset/Duration Of Symptoms: Days Current Symptoms Are (Timing): Worse Current Respiratory Medications: See Home Med List Severity: Severe Associated Symptoms: Productive Cough Additional History Per: Prior Records Past Medical History Reviewed: Historical Data, Nursing Documentation, Vital Signs Vital Signs: Last Vital Signs Temp 98.7 F 02/27/17 20:55 Pulse 106 H 02/27/17 20:55 Resp 18 02/27/17 20:55 BP 150/99 H 02/27/17 20:55 Pulse Ox 100 02/27/17 20:55 - Medical History PMH: Anxiety, Asthma, Bipolar Disorder, Bronchitis, CHF, COPD, Depression, Emphysema, HTN, Pneumonia, Seizures, Sleep Apnea Surgical History: Appendectomy, Cholecystectomy Other Surgeries: Tracheostomy - [facility] Procedures ASSISTANCE WITH RESPIRATORY VENTILATION, <24 HRS, CPAP (03/14/16) CENTRAL VENOUS CATHETER PLACEMENT WITH GUIDANCE (10/24/14) CHANGE TRACHEOSTOMY DEVICE IN TRACHEA, EXTERNAL APPROACH (08/25/16) CONTINUOUS INVASIVE MECHANICAL VENTILATION <96 CONSEC HRS (03/07/14) ENTERAL INFUSION OF CONCENTRATED NUT. SUBSTANCES (09/17/12) INSERT ENDOTRACHEAL TUBE (09/17/12) INSERTION OF INFUSION DEV INTO SUP VENA CAVA, PERC APPROACH (12/03/15) INTRODUCE OF OTH THERAP SUBST INTO RESP TRACT, VIA OPENING (05/03/15) NEBULIZER THERAPY (09/17/12) RESPIRATORY VENTILATION, 24-96 CONSECUTIVE HOURS (03/14/16) Family History: States: Unknown Family Hx - Social History Hx Tobacco Use: No Hx Alcohol Use: No Hx Substance Use: No - Immunization History Hx Tetanus Toxoid Vaccination: No Hx Influenza Vaccination: No Hx Pneumococcal Vaccination: No Review Of Systems Cardiovascular: Positive for: Chest Pain Respiratory: Positive for: Cough, Shortness of Breath Gastrointestinal: Negative for: Vomiting Neurological: Negative for: Seizures Psych: Positive for: Anxiety Physical Exam - Physical Exam Appears: In Acute Distress, Chronically Ill Skin: Normal Color, Warm, Dry Head: Atraumatic, Normacephalic Eye(s): bilateral: PERRL, EOMI Neck: Normal ROM, Supple, Other (Tracheostomy in place) Cardiovascular: Rhythm Regular (tachycardia) Respiratory: Rhonchi Gastrointestinal/Abdominal: Soft, No Tenderness Extremity: Normal ROM Neurological/Psych: Oriented x3, Normal Motor, Normal Sensation ED Course And Treatment - Laboratory Results Result Diagrams: 02/27/17 18:40 02/27/17 18:40 Lab Interpretation: Abnormal Interpretation Of Abnormal: Leukocytosis. ECG: Interpreted By Me, Viewed By Me ECG Rhythm: Sinus Tachycardia, Nonspecific Changes Rate From EC O2 Sat by Pulse Oximetry: 100 - Radiology CXR: Interpreted by Me, Viewed By Me CXR Interpretation: Yes: Infiltrates Progress Note: Pt was placed on a ventilator throught the trach with some improvement. - Physician Consult Information Physician Contacted: Lawrence Chapman (ICU) Outcome Of Conversation: She evaluated pt in the ED and accepted to ICU. Progress - Interventions Interventions:: Observation, Oxygen - Medications Administered Inhaled nebulized: Anticholinergic, Beta-2 agonist Intravenous: Corticosteroid - Data Reviewed Data Reviewed: Lab, Diagnostic imaging, EKG, Old records - Patient Status Patient status: Partially improved - Continuity of Care Discussed patient case with:: Patient, ED Nurse, PMD Discussed pt. case with customer support consultant/specialty: Pulmonary/Crit. Care - Patient Plan Patient Plan: Admission, ICU Disposition Discussed With : Ad Khan (PMD) Comment: He accepted pt on his service. He recommended giving pt Aztreonam and Clindamycin. Doctor Will See Patient In The: Hospital Counseled Patient/Family Regarding: Studies Performed, Diagnosis - Disposition Disposition: HOSPITALIZED Disposition Time: 21:25 Condition: GUARDED - Clinical Impression Clinical Impression: Pneumonia, Tracheostomy present, Respiratory distress
--- NOTE | 2017-02-27 22:24 | CP.PCM.CON ---
History of Present Illness - History of Present Illness History of Present Illness: 61 y/o male with h/o Anxiety, Bipolar Disorder,Asthma/ COPD, Depression, Seizures, Sleep Apnea,tracheostomy presents to ER with c/o cough productive of yellow phlegm and difficulty breathing x 2 days.Patient was tried on trach collar but c/o persisitant symptoms and place on ventilator c/o chest pain,left sided without radiation Review of Systems - Review of Systems Review of Systems: on Vent via tracheostomy - Constitutional Constitutional: Chills. absent: Anorexia, Excessive Sweating, Fever, Night Sweats Additional comments: c/o shivering,chills without fever - EENT Eyes: absent: Blurred Vision, Itchy Eyes Ears: absent: Decreased Hearing, Ear Pain, Dizziness Nose/Mouth/Throat: absent: Nasal Congestion, Hoarsness, Sore Throat - Breasts Breasts: absent: Mass, Pain - Cardiovascular Cardiovascular: Chest Pain. absent: Diaphoresis, Edema - Respiratory Respiratory: Cough, Dyspnea, Change in Mucous Color - Gastrointestinal Gastrointestinal: absent: Abdominal Pain, Change in Bowel Habits, Nausea, Vomiting - Genitourinary Genitourinary: absent: Dysuria, Urinary Frequency - Musculoskeletal Musculoskeletal: absent: Neck Pain, Stiffness - Integumentary Integumentary: Pruritus - Neurological Neurological: absent: Dizziness, Syncope Past Patient History - Infectious Disease Hx of Infectious Diseases: None - Tetanus Immunizations Tetanus Immunization: Unknown - Past Medical History & Family History Past Medical History?: Yes - Past Social History Smoking Status: Never Smoked - CARDIAC Hx Congestive Heart Failure: Yes Hx Hypertension: Yes - PULMONARY Hx Asthma: Yes Hx Bronchitis: Yes Hx Chronic Obstructive Pulmonary Disease (COPD): Yes Hx Emphysema: Yes Hx Pneumonia: Yes Hx Sleep Apnea: Yes - NEUROLOGICAL Hx Seizures: Yes - HEENT Hx HEENT Problems: Yes Hx Cataracts: Yes - RENAL Hx Chronic Kidney Disease: No - ENDOCRINE/METABOLIC Hx Hypothyroidism: No - HEMATOLOGICAL/ONCOLOGICAL Hx Human Immunodeficiency Virus (HIV): No - INTEGUMENTARY Hx Dermatological Problems: No - MUSCULOSKELETAL/RHEUMATOLOGICAL Hx Arthritis: No Hx Falls: Yes Hx Rheumatoid Arthritis: No - GASTROINTESTINAL Hx Gastrointestinal Disorders: Yes Other/Comment: cholecystectomy - GENITOURINARY/GYNECOLOGICAL Hx Sexually Transmitted Disorders: No - PSYCHIATRIC Hx Anxiety: Yes Hx Bipolar Disorder: Yes Hx Depression: Yes Hx Substance Use: No - SURGICAL HISTORY Hx Appendectomy: Yes Hx Cholecystectomy: Yes - ANESTHESIA Hx Anesthesia: Yes Hx Anesthesia Reactions: No Hx Malignant Hyperthermia: No Meds Allergies/Adverse Reactions: Allergies Allergy/AdvReac Type Severity Reaction Status Date / Time aspirin Allergy ANAPHYLAXIS Verified 02/27/17 18:25 ceftriaxone sodium Allergy ANAPHYLAXIS Verified 02/27/17 18:25 [From Rocephin] ibuprofen [From Motrin] Allergy ANAPHYLAXIS Verified 02/27/17 18:25 iodine Allergy ANAPHYLAXIS Verified 02/27/17 18:25 raspberry Allergy ANAPHYLAXIS Verified 02/27/17 18:25 Physical Exam - Constitutional Appears: No Acute Distress - Head Exam Head Exam: ATRAUMATIC, NORMAL INSPECTION, NORMOCEPHALIC - Eye Exam Eye Exam: EOMI, Normal appearance, PERRL Pupil Exam: NORMAL ACCOMODATION - ENT Exam ENT Exam: Mucous Membranes Moist, Normal Exam - Neck Exam Neck exam: Positive for: Normal Inspection. Negative for: Lymphadenopathy - Respiratory Exam Respiratory Exam: Clear to Auscultation Bilateral. absent: Chest Wall Tenderness - Cardiovascular Exam Cardiovascular Exam: Tachycardia, REGULAR RHYTHM, Systolic Murmur. absent: JVD - GI/Abdominal Exam GI & Abdominal Exam: Normal Bowel Sounds, Soft. absent: Tenderness - Extremities Exam Extremities exam: Positive for: normal inspection. Negative for: pedal edema - Neurological Exam Neurological exam: Alert, Oriented x3 - Skin Skin Exam: Normal Color Results - Vital Signs Recent Vital Signs: Last Vital Signs Temp 98.7 F 02/27/17 20:55 Pulse 103 H 02/27/17 21:30 Resp 21 02/27/17 21:30 BP 132/75 02/27/17 21:30 Pulse Ox 100 02/27/17 21:30 - Labs Result Diagrams: 02/27/17 18:40 02/27/17 18:40 Labs: Laboratory Results - last 24 hr 02/27/17 02/27/17 02/27/17 18:40 18:40 18:40 WBC 16.0 H RBC 5.16 Hgb 13.7 Hct 41.0 MCV 79.6 L MCH 26.5 L MCHC 33.3 RDW 16.4 H Plt Count 232 MPV 8.3 Neut % (Auto) 63.4 Lymph % (Auto) 27.6 [place] % (Auto) 8.0 Eos % (Auto) 0.6 Baso % (Auto) 0.4 Neut # 10.1 H Lymph # 4.4 H [place] # 1.3 H Eos # 0.1 Baso # 0.1 PT 12.0 INR 1.1 APTT 33 Puncture Site pCO2 pO2 HCO3 ABG pH ABG Total CO2 ABG O2 Saturation ABG Base Excess Rob Test ABG Potassium A-a O2 Difference Respiratory Index Glucose Lactate Vent Mode FiO2 PEEP Pressure Support Sodium 138 Potassium 4.3 Chloride 103 Carbon Dioxide 24 Anion Gap 15 BUN 24 H Creatinine 1.0 Est GFR ( Amer) > 60 Est GFR (Non-Af Amer) 57 Random Glucose 169 H Calcium 9.6 Total Bilirubin 0.7 AST 27 ALT 19 Alkaline Phosphatase 136 H D Troponin I 0.0160 NT-Pro-B Natriuret Pep 218 Total Protein 9.8 H Albumin 4.5 Globulin 5.4 H Albumin/Globulin Ratio 0.8 L Arterial Blood Potassium 02/27/17 20:54 WBC RBC Hgb Hct MCV MCH MCHC RDW Plt Count MPV Neut % (Auto) Lymph % (Auto) [place] % (Auto) Eos % (Auto) Baso % (Auto) Neut # Lymph # [place] # Eos # Baso # PT INR APTT Puncture Site Rba pCO2 39 pO2 368 H HCO3 22.6 ABG pH 7.36 ABG Total CO2 23.2 ABG O2 Saturation 98.9 H ABG Base Excess -3.1 L Rob Test Na ABG Potassium 3.5 L A-a O2 Difference 296.0 Respiratory Index 0.8 Glucose 208 H Lactate 1.2 Vent Mode Cpap FiO2 100.0 PEEP 5 Pressure Support 15 Sodium 143.0 Potassium Chloride 113.0 H Carbon Dioxide Anion Gap BUN Creatinine Est GFR ( Amer) Est GFR (Non-Af Amer) Random Glucose Calcium Total Bilirubin AST ALT Alkaline Phosphatase Troponin I NT-Pro-B Natriuret Pep Total Protein Albumin Globulin Albumin/Globulin Ratio Arterial Blood Potassium 3.5 L - EKG Data EKG Interpreted by: Myself EKG shows normal: Sinus rhythm - Imaging and Cardiology Chest x-ray Status: Image reviewed by me Assessment & Plan - Assessment and Plan (Free Text) Assessment: 1.Exacerbation of COPD/Bronchitis r/o pneumonia, Respiratory failure started on Clindamycinn and azactem in ER duoneb,steroids,singulair continue vent support 2.DM-continue insulin 3.Bipolar disease continue meds 4.Siezures continue meds
[2017-02-27] MEDS ORDERED: Albuterol-Ipratrop 3 mg / 0.5 (3 ml) UD INH PRN (22:38)
[2017-02-27] MEDS ORDERED: methylPREDNISolone 80 MG in Sodium Chloride 0.9% 100 ML IVPB SCH (23:00)
[2017-02-27] MEDS ORDERED: Aztreonam 2 GM in Sodium Chloride 0.9% 100 ML IVPB SCH (23:30)
[2017-02-28] MEDS: Oxycodone/Acetaminophen 5/325 mg Tab PO PRN ×2 (00:25→14:30)
[2017-02-28] MEDS: Moxifloxacin IV 400mg/250ml NS 400 MG/250 ML BAG IVPB SCH ×2 (00:51→22:56)
[2017-02-28] MEDS: Aztreonam 2 GM in Sodium Chloride 0.9% 100 ML IVPB SCH ×3 (06:00→21:00)
[2017-02-28 06:27] LABS: BASO % 0.2 % (0.0-2.0); HEMOGLOBIN 11.8 g/dL (11.0-16.0); LYMPH # 0.6 K/uL (1.0-4.3); LYMPH % 5.1 % (20.0-40.0); MEAN CELL VOLUME 80.6 fL (81.0-99.0); MEAN CORPUSCULAR HEMOGLOBIN 26.9 pg (27.0-31.0); MEAN CORPUSCULAR HGB CONC 33.4 g/dL (33.0-37.0); MEAN PLATELET VOLUME 8.4 fL (7.2-11.7); MONO # 0.2 K/uL (0.0-0.8); MONO % 1.5 % (0.0-10.0); NEUT # 11.1 K/uL (1.8-7.0); NEUT % 93.2 % (50.0-75.0); PLATELET COUNT 175 K/uL (130-400); RBC 4.37 Mil/uL (3.80-5.20); RED CELL DISTRIBUTION WIDTH 16.2 % (11.5-14.5); WHITE BLOOD COUNT 11.9 K/uL (4.8-10.8)
[2017-02-28 06:37] LABS: ALB/GLOB RATIO 0.9 (1.0-2.1); ALBUMIN 3.9 g/dL (3.5-5.0); ALT/SGPT 18 U/L (9-52); AST/SGOT 27 U/L (14-36); BLOOD UREA NITROGEN 28 mg/dL (7-17); CALCIUM 8.9 mg/dl (8.6-10.4); GFR AFRICAN-AMERICAN > 60; GFR NON-AFRICAN AMERICAN 57; MAGNESIUM 1.8 mg/dL (1.6-2.3)
[2017-02-28] MEDS: Albuterol-Ipratrop 3 mg / 0.5 (3 ml) UD INH SCH ×4 (07:29→20:28)
[2017-02-28] MEDS ORDERED: (Novolin R) Insulin Human Regular 100 units/ml vial SC SCH (07:30)
[2017-02-28 08:40] LABS: MONOCYTE 1 % (0-10); PLATELET ESTIMATE NORMAL (NORMAL); TOTAL CELLS COUNTED 100
[2017-02-28 08:41] LABS: LYMPHOCYTE 5 % (20-40); NEUTROPHIL 94 % (50-75)
[2017-02-28] MEDS: (Novolin R) Insulin Human Regular 100 units/ml vial SC SCH ×4 (08:45→23:06)
--- NOTE | 2017-02-28 09:58 | RAD ---
PROCEDURE: CHEST RADIOGRAPH, 1 VIEW HISTORY: respiratory failure COMPARISON: None available. FINDINGS: LUNGS: Patchy bilateral perihilar opacities. Possible pneumonia. PLEURA: No pneumothorax or pleural fluid seen. CARDIOVASCULAR: Normal heart size. Tracheostomy tube unchanged, grossly. OSSEOUS STRUCTURES: No significant abnormalities. VISUALIZED UPPER ABDOMEN: Normal. OTHER FINDINGS: None. IMPRESSION: Patchy bilateral perihilar opacities. Tracheostomy tube.
[2017-02-28] MEDS ORDERED: (Lantus) Insulin Glargine, Recombinant SC SCH (10:00)
[2017-02-28] MEDS ORDERED: Pantoprazole 40 mg EC Tab PO SCH (10:00)
--- NOTE | 2017-02-28 10:02 | RAD ---
PROCEDURE: CHEST RADIOGRAPH, 1 VIEW HISTORY: SOB, trach pt. COMPARISON: None available. FINDINGS: LUNGS: Evaluation limited due to underpenetration of the lung bases. No infiltrate. PLEURA: No pneumothorax or pleural fluid seen. CARDIOVASCULAR: Tracheostomy tube noted. OSSEOUS STRUCTURES: No significant abnormalities. VISUALIZED UPPER ABDOMEN: Normal. OTHER FINDINGS: None. IMPRESSION: No acute infiltrate. Limited examination.
[2017-02-28 10:16] LABS: SQUAMOUS EPITHIAL 7 /hpf (0-5); URINE BACTERIA OCC (<OCC); URINE BILIRUBIN NEGATIVE (NEGATIVE); URINE BLOOD 2+ (NEGATIVE); URINE CLARITY Hazy (Clear); URINE COLOR Yellow (YELLOW); URINE GLUCOSE (UA) 2+ mg/dL (Normal); URINE LEUKOCYTE ESTERASE 2+ Leu/uL (Negative); URINE NITRATE NEGATIVE (NEGATIVE); URINE PROTEIN 1+ mg/dL (NEGATIVE); URINE UROBILINOGEN NORMAL mg/dL (0.2-1.0)
[2017-02-28] MEDS: Enoxaparin 60 mg Syringe SC SCH (10:40)
[2017-02-28] MEDS: guaiFENesin 200 mg/10 ml Syrup UD PO SCH ×4 (10:41→23:01)
[2017-02-28] MEDS: Pantoprazole 40 mg Susp UD PO SCH (10:44)
--- NOTE | 2017-02-28 12:18 | CP.CCUPN ---
<Ciarra Price - Last Filed: 02/28/17 12:14> CCU Subjective - Physician Review Subjective (Free Text): 02/28/17 12:[address] Rosado Patient seen and examined at bedside on ventilator. No acute events overnight. Patient is stable for transfer to telemetry on ventilator to continue with antibiotics for productive cough Critical Care Time Spent (in minutes): 35 CCU Objective - Vital Signs / Intake & Output Vital Signs (Last 4 hours): Vital Signs Pulse Resp BP Pulse Ox 02/28/17 11:32 92 H 14 129/83 96 02/28/17 10:32 92 H 22 136/80 97 02/28/17 09:32 94 H 16 144/90 98 02/28/17 09:00 94 H 11 L 98 02/28/17 08:32 100 H 16 135/93 H 93 L Intake and Output (Last 8hrs): Intake & Output 02/27/17 02/28/17 02/28/17 22:59 06:59 14:59 Intake Total 400 250 Output Total 0 440 Balance 400 -190 Weight 190 lb 275 lb 9.245 oz Intake: Intake, IV Amount 400 50 Left Hand 50 Right Hand 400 0 Oral 200 Output: Urine 0 440 Urine, Voided 0 440 Stool 0 0 Emesis 0 Other: Voiding Method Bedpan - Physical Exam Pupils: Positive for: PERRL Extroacular Muscles: Positive for: EOMI Mouth: Positive for: Moist Mucous Membranes Nose (Internal): Positive for: Normal Inspection. Negative for: No Active Bleeding Respiratory/Chest: Positive for: Rales, Other (patient is breathing via ventilator via tracheostomy) Abdomen: Positive for: Normal Bowel Sounds. Negative for: Tenderness, Distention Upper Extremity: Positive for: Capillary Refill < 2s. Negative for: Edema Lower Extremity: Negative for: Edema - Medications Active Medications: Active Medications Generic Name Dose Route Start Last Admin Trade Name Freq PRN Reason Stop Dose Admin Albuterol/Ipratropium 3 ml 02/28/17 08:00 02/28/17 11:19 Duoneb 3 Mg/0.5 Mg (3 Ml) Ud INH 3 ml RQID SHAYLA Administration Benzonatate 100 mg 02/28/17 10:00 02/28/17 10:41 Tessalon Perles PO 100 mg TID SHAYLA Administration Enoxaparin Sodium 40 mg 02/28/17 10:00 02/28/17 10:40 Lovenox SC 40 mg DAILY SHAYLA Administration Gabapentin 800 mg 02/28/17 10:00 02/28/17 10:41 Neurontin PO 800 mg TID SHAYLA Administration Guaifenesin 200 mg 02/28/17 10:00 02/28/17 10:41 Robitussin PO 200 mg QID SHAYLA Administration Clindamycin Phosphate 600 mg/ 54 mls @ 100 mls/hr 02/28/17 03:00 02/28/17 09: 30 Sodium Chloride IVPB 100 mls/hr Q6H SHAYLA Administration Moxifloxacin HCl 400 mg in 250 mls @ 167 mls/hr 02/27/17 23:00 02/28/17 00:51 Avelox Iv 400mg/250ml Ns IVPB 167 mls/hr Q24H SHAYLA Administration Aztreonam 2 gm/ Sodium 100 mls @ 200 mls/hr 02/28/17 05:00 02/28/17 06:00 Chloride IVPB 200 mls/hr Q8H SHAYLA Administration Insulin Glargine 30 unit 02/28/17 22:00 Lantus SC HS [facility] Insulin Human Regular 0 unit 02/28/17 07:30 02/28/17 08:45 Novolin R SC 3 unit ACHS SHAYLA Administration Protocol Lamotrigine 100 mg 02/27/17 22:45 02/28/17 10:41 Lamictal PO 100 mg Q12H SHAYLA Administration Lorazepam 2 mg 02/27/17 22:36 Ativan PO TID PRN Anxiety Methylprednisolone 125 mg 02/28/17 04:00 02/28/17 04:15 Solu-Medrol IVP 125 mg Q8H SHAYLA Administration Montelukast Sodium 10 mg 02/28/17 22:00 Singulair PO HS [facility] Oxycodone/Acetaminophen 1 tab 02/27/17 22:36 02/28/17 00:25 Percocet 5/325 Mg Tab PO 03/02/17 22:37 1 tab Q4H PRN Administration Pain, moderate (4-7) Pantoprazole Sodium 40 mg 02/28/17 10:00 02/28/17 10:44 Protonix Susp PO Not Given DAILY [facility] Quetiapine Fumarate 400 mg 02/27/17 22:45 02/28/17 10:41 Seroquel PO 400 mg Q12H SHAYLA Administration Rosuvastatin Calcium 5 mg 02/27/17 22:45 02/28/17 00:57 Crestor PO 5 mg HS SHAYLA Administration Sertraline HCl 100 mg 02/28/17 22:00 Zoloft PO HS SHAYLA Trazodone HCl 150 mg 02/28/17 22:00 Desyrel PO HS SHAYLA - Patient Studies Lab Studies: Lab Studies 02/28/17 02/28/17 02/28/17 Range/Units 11:33 09:43 07:35 WBC (4.8-10.8) K/uL RBC (3.80-5.20) Mil/uL Hgb (11.0-16.0) g/dL Hct (34.0-47.0) % MCV (81.0-99.0) fL MCH (27.0-31.0) pg MCHC (33.0-37.0) g/dL RDW (11.5-14.5) % Plt Count (130-400) K/uL MPV (7.2-11.7) fL Neut % (Auto) (50.0-75.0) % Lymph % (Auto) (20.0-40.0) % [place] % (Auto) (0.0-10.0) % Eos % (Auto) (0.0-4.0) % Baso % (Auto) (0.0-2.0) % Neut # (1.8-7.0) K/uL Lymph # (1.0-4.3) K/uL [place] # (0.0-0.8) K/uL Eos # (0.0-0.7) K/uL Baso # (0.0-0.2) K/uL Neutrophils % (Manual) (50-75) % Lymphocytes % (Manual) (20-40) % Monocytes % (Manual) (0-10) % Platelet Estimate (NORMAL) PT (9.7-12.2) SECONDS INR APTT (21-34) SECONDS Puncture Site pCO2 (35-45) mm/Hg pO2 (80-100) mm/Hg HCO3 (21-28) mmol/L ABG pH (7.35-7.45) ABG Total CO2 (22-28) mmol/L ABG O2 Saturation (95-98) % ABG Base Excess (-2.0-3.0) mmol/L Rob Test ABG Potassium (3.6-5.2) mmol/L A-a O2 Difference mm/Hg Respiratory Index Glucose (65-105) mg/dl Lactate (0.7-2.1) mmol/L Vent Mode FiO2 % PEEP Pressure Support Sodium (132-148) mmol/L Potassium (3.6-5.2) mmol/L Chloride (98-107) mmol/L Carbon Dioxide (22-30) mmol/L Anion Gap (10-20) BUN (7-17) mg/dL Creatinine (0.7-1.2) mg/dL Est GFR ( Amer) Est GFR (Non-Af Amer) POC Glucose (mg/dL) 326 H 270 H (65-110) mg/dL Random Glucose (65-105) mg/dL Hemoglobin A1c (4.2-6.5) % Calcium (8.6-10.4) mg/dl Phosphorus (2.5-4.5) mg/dL Magnesium (1.6-2.3) mg/dL Total Bilirubin (0.2-1.3) mg/dL AST (14-36) U/L ALT (9-52) U/L Alkaline Phosphatase (38-126) U/L Troponin I (0.00-0.120) ng/mL NT-Pro-B Natriuret Pep (0-900) pg/mL Total Protein (6.3-8.3) g/dL Albumin (3.5-5.0) g/dL Globulin (2.2-3.9) gm/dL Albumin/Globulin Ratio (1.0-2.1) Arterial Blood Potassium (3.6-5.2) mmol/L Urine Color Yellow (YELLOW) Urine Clarity Hazy (Clear) Urine pH 5.0 (5.0-8.0) Ur Specific Brice 1.030 (1.003-1.030) Urine Protein 1+ H (NEGATIVE) mg/dL Urine Glucose (UA) 2+ H (Normal) mg/dL Urine Ketones Negative (NEGATIVE) mg/dL Urine Blood 2+ H (NEGATIVE) Urine Nitrate Negative (NEGATIVE) Urine Bilirubin Negative (NEGATIVE) Urine Urobilinogen Normal (0.2-1.0) mg/dL Ur Leukocyte Esterase 2+ H (Negative) Brian/uL Urine WBC (Auto) 32 H (0-5) /hpf Urine RBC (Auto) 12 H (0-3) /hpf Ur Squamous Epith Cells 7 H (0-5) /hpf Urine Bacteria Occ H (<OCC) 02/28/17 02/28/17 02/28/17 Range/Units 06:17 06:15 06:15 WBC 11.9 H (4.8-10.8) K/uL RBC 4.37 (3.80-5.20) Mil/uL Hgb 11.8 (11.0-16.0) g/dL Hct 35.2 (34.0-47.0) % MCV 80.6 L (81.0-99.0) fL MCH 26.9 L (27.0-31.0) pg MCHC 33.4 (33.0-37.0) g/dL RDW 16.2 H (11.5-14.5) % Plt Count 175 (130-400) K/uL MPV 8.4 (7.2-11.7) fL Neut % (Auto) 93.2 H (50.0-75.0) % Lymph % (Auto) 5.1 L (20.0-40.0) % [place] % (Auto) 1.5 (0.0-10.0) % Eos % (Auto) 0.0 (0.0-4.0) % Baso % (Auto) 0.2 (0.0-2.0) % Neut # 11.1 H (1.8-7.0) K/uL Lymph # 0.6 L (1.0-4.3) K/uL [place] # 0.2 (0.0-0.8) K/uL Eos # 0.0 (0.0-0.7) K/uL Baso # 0.0 (0.0-0.2) K/uL Neutrophils % (Manual) 94 H (50-75) % Lymphocytes % (Manual) 5 L (20-40) % Monocytes % (Manual) 1 (0-10) % Platelet Estimate Normal (NORMAL) PT (9.7-12.2) SECONDS INR APTT (21-34) SECONDS Puncture Site pCO2 (35-45) mm/Hg pO2 (80-100) mm/Hg HCO3 (21-28) mmol/L ABG pH (7.35-7.45) ABG Total CO2 (22-28) mmol/L ABG O2 Saturation (95-98) % ABG Base Excess (-2.0-3.0) mmol/L Rob Test ABG Potassium (3.6-5.2) mmol/L A-a O2 Difference mm/Hg Respiratory Index Glucose (65-105) mg/dl Lactate (0.7-2.1) mmol/L Vent Mode FiO2 % PEEP Pressure Support Sodium 137 (132-148) mmol/L Potassium 4.8 (3.6-5.2) mmol/L Chloride 104 (98-107) mmol/L Carbon Dioxide 23 (22-30) mmol/L Anion Gap 14 (10-20) BUN 28 H (7-17) mg/dL Creatinine 1.0 (0.7-1.2) mg/dL Est GFR ( Amer) > 60 Est GFR (Non-Af Amer) 57 POC Glucose (mg/dL) (65-110) mg/dL Random Glucose 344 H (65-105) mg/dL Hemoglobin A1c 8.7 H (4.2-6.5) % Calcium 8.9 (8.6-10.4) mg/dl Phosphorus 4.2 (2.5-4.5) mg/dL Magnesium 1.8 (1.6-2.3) mg/dL Total Bilirubin 0.6 (0.2-1.3) mg/dL AST 27 (14-36) U/L ALT 18 (9-52) U/L Alkaline Phosphatase 103 (38-126) U/L Troponin I (0.00-0.120) ng/mL NT-Pro-B Natriuret Pep (0-900) pg/mL Total Protein 8.1 (6.3-8.3) g/dL Albumin 3.9 (3.5-5.0) g/dL Globulin 4.2 H (2.2-3.9) gm/dL Albumin/Globulin Ratio 0.9 L (1.0-2.1) Arterial Blood Potassium (3.6-5.2) mmol/L Urine Color (YELLOW) Urine Clarity (Clear) Urine pH (5.0-8.0) Ur Specific Brice (1.003-1.030) Urine Protein (NEGATIVE) mg/dL Urine Glucose (UA) (Normal) mg/dL Urine Ketones (NEGATIVE) mg/dL Urine Blood (NEGATIVE) Urine Nitrate (NEGATIVE) Urine Bilirubin (NEGATIVE) Urine Urobilinogen (0.2-1.0) mg/dL Ur Leukocyte Esterase (Negative) Brian/uL Urine WBC (Auto) (0-5) /hpf Urine RBC (Auto) (0-3) /hpf Ur Squamous Epith Cells (0-5) /hpf Urine Bacteria (<OCC) 02/27/17 02/27/17 02/27/17 Range/Units 20:54 18:40 18:40 WBC (4.8-10.8) K/uL RBC (3.80-5.20) Mil/uL Hgb (11.0-16.0) g/dL Hct (34.0-47.0) % MCV (81.0-99.0) fL MCH (27.0-31.0) pg MCHC (33.0-37.0) g/dL RDW (11.5-14.5) % Plt Count (130-400) K/uL MPV (7.2-11.7) fL Neut % (Auto) (50.0-75.0) % Lymph % (Auto) (20.0-40.0) % [place] % (Auto) (0.0-10.0) % Eos % (Auto) (0.0-4.0) % Baso % (Auto) (0.0-2.0) % Neut # (1.8-7.0) K/uL Lymph # (1.0-4.3) K/uL [place] # (0.0-0.8) K/uL Eos # (0.0-0.7) K/uL Baso # (0.0-0.2) K/uL Neutrophils % (Manual) (50-75) % Lymphocytes % (Manual) (20-40) % Monocytes % (Manual) (0-10) % Platelet Estimate (NORMAL) PT 12.0 (9.7-12.2) SECONDS INR 1.1 APTT 33 (21-34) SECONDS Puncture Site Rba pCO2 39 (35-45) mm/Hg pO2 368 H (80-100) mm/Hg HCO3 22.6 (21-28) mmol/L ABG pH 7.36 (7.35-7.45) ABG Total CO2 23.2 (22-28) mmol/L ABG O2 Saturation 98.9 H (95-98) % ABG Base Excess -3.1 L (-2.0-3.0) mmol/L Rob Test Na ABG Potassium 3.5 L (3.6-5.2) mmol/L A-a O2 Difference 296.0 mm/Hg Respiratory Index 0.8 Glucose 208 H (65-105) mg/dl Lactate 1.2 (0.7-2.1) mmol/L Vent Mode Cpap FiO2 100.0 % PEEP 5 Pressure Support 15 Sodium 143.0 138 (132-148) mmol/L Potassium 4.3 (3.6-5.2) mmol/L Chloride 113.0 H 103 (98-107) mmol/L Carbon Dioxide 24 (22-30) mmol/L Anion Gap 15 (10-20) BUN 24 H (7-17) mg/dL Creatinine 1.0 (0.7-1.2) mg/dL Est GFR ( Amer) > 60 Est GFR (Non-Af Amer) 57 POC Glucose (mg/dL) (65-110) mg/dL Random Glucose 169 H (65-105) mg/dL Hemoglobin A1c (4.2-6.5) % Calcium 9.6 (8.6-10.4) mg/dl Phosphorus (2.5-4.5) mg/dL Magnesium (1.6-2.3) mg/dL Total Bilirubin 0.7 (0.2-1.3) mg/dL AST 27 (14-36) U/L ALT 19 (9-52) U/L Alkaline Phosphatase 136 H D (38-126) U/L Troponin I 0.0160 (0.00-0.120) ng/mL NT-Pro-B Natriuret Pep 218 (0-900) pg/mL Total Protein 9.8 H (6.3-8.3) g/dL Albumin 4.5 (3.5-5.0) g/dL Globulin 5.4 H (2.2-3.9) gm/dL Albumin/Globulin Ratio 0.8 L (1.0-2.1) Arterial Blood Potassium 3.5 L (3.6-5.2) mmol/L Urine Color (YELLOW) Urine Clarity (Clear) Urine pH (5.0-8.0) Ur Specific Brice (1.003-1.030) Urine Protein (NEGATIVE) mg/dL Urine Glucose (UA) (Normal) mg/dL Urine Ketones (NEGATIVE) mg/dL Urine Blood (NEGATIVE) Urine Nitrate (NEGATIVE) Urine Bilirubin (NEGATIVE) Urine Urobilinogen (0.2-1.0) mg/dL Ur Leukocyte Esterase (Negative) Brian/uL Urine WBC (Auto) (0-5) /hpf Urine RBC (Auto) (0-3) /hpf Ur Squamous Epith Cells (0-5) /hpf Urine Bacteria (<OCC) 02/27/17 Range/Units 18:40 WBC 16.0 H (4.8-10.8) K/uL RBC 5.16 (3.80-5.20) Mil/uL Hgb 13.7 (11.0-16.0) g/dL Hct 41.0 (34.0-47.0) % MCV 79.6 L (81.0-99.0) fL MCH 26.5 L (27.0-31.0) pg MCHC 33.3 (33.0-37.0) g/dL RDW 16.4 H (11.5-14.5) % Plt Count 232 (130-400) K/uL MPV 8.3 (7.2-11.7) fL Neut % (Auto) 63.4 (50.0-75.0) % Lymph % (Auto) 27.6 (20.0-40.0) % [place] % (Auto) 8.0 (0.0-10.0) % Eos % (Auto) 0.6 (0.0-4.0) % Baso % (Auto) 0.4 (0.0-2.0) % Neut # 10.1 H (1.8-7.0) K/uL Lymph # 4.4 H (1.0-4.3) K/uL [place] # 1.3 H (0.0-0.8) K/uL Eos # 0.1 (0.0-0.7) K/uL Baso # 0.1 (0.0-0.2) K/uL Neutrophils % (Manual) (50-75) % Lymphocytes % (Manual) (20-40) % Monocytes % (Manual) (0-10) % Platelet Estimate (NORMAL) PT (9.7-12.2) SECONDS INR APTT (21-34) SECONDS Puncture Site pCO2 (35-45) mm/Hg pO2 (80-100) mm/Hg HCO3 (21-28) mmol/L ABG pH (7.35-7.45) ABG Total CO2 (22-28) mmol/L ABG O2 Saturation (95-98) % ABG Base Excess (-2.0-3.0) mmol/L Rob Test ABG Potassium (3.6-5.2) mmol/L A-a O2 Difference mm/Hg Respiratory Index Glucose (65-105) mg/dl Lactate (0.7-2.1) mmol/L Vent Mode FiO2 % PEEP Pressure Support Sodium (132-148) mmol/L Potassium (3.6-5.2) mmol/L Chloride (98-107) mmol/L Carbon Dioxide (22-30) mmol/L Anion Gap (10-20) BUN (7-17) mg/dL Creatinine (0.7-1.2) mg/dL Est GFR ( Amer) Est GFR (Non-Af Amer) POC Glucose (mg/dL) (65-110) mg/dL Random Glucose (65-105) mg/dL Hemoglobin A1c (4.2-6.5) % Calcium (8.6-10.4) mg/dl Phosphorus (2.5-4.5) mg/dL Magnesium (1.6-2.3) mg/dL Total Bilirubin (0.2-1.3) mg/dL AST (14-36) U/L ALT (9-52) U/L Alkaline Phosphatase (38-126) U/L Troponin I (0.00-0.120) ng/mL NT-Pro-B Natriuret Pep (0-900) pg/mL Total Protein (6.3-8.3) g/dL Albumin (3.5-5.0) g/dL Globulin (2.2-3.9) gm/dL Albumin/Globulin Ratio (1.0-2.1) Arterial Blood Potassium (3.6-5.2) mmol/L Urine Color (YELLOW) Urine Clarity (Clear) Urine pH (5.0-8.0) Ur Specific Brice (1.003-1.030) Urine Protein (NEGATIVE) mg/dL Urine Glucose (UA) (Normal) mg/dL Urine Ketones (NEGATIVE) mg/dL Urine Blood (NEGATIVE) Urine Nitrate (NEGATIVE) Urine Bilirubin (NEGATIVE) Urine Urobilinogen (0.2-1.0) mg/dL Ur Leukocyte Esterase (Negative) Brian/uL Urine WBC (Auto) (0-5) /hpf Urine RBC (Auto) (0-3) /hpf Ur Squamous Epith Cells (0-5) /hpf Urine Bacteria (<OCC) Laboratory Results - last 24 hr 02/27/17 02/27/17 02/27/17 18:40 18:40 18:40 WBC 16.0 H RBC 5.16 Hgb 13.7 Hct 41.0 MCV 79.6 L MCH 26.5 L MCHC 33.3 RDW 16.4 H Plt Count 232 MPV 8.3 Neut % (Auto) 63.4 Lymph % (Auto) 27.6 [place] % (Auto) 8.0 Eos % (Auto) 0.6 Baso % (Auto) 0.4 Neut # 10.1 H Lymph # 4.4 H [place] # 1.3 H Eos # 0.1 Baso # 0.1 Neutrophils % (Manual) Lymphocytes % (Manual) Monocytes % (Manual) Platelet Estimate PT 12.0 INR 1.1 APTT 33 Puncture Site pCO2 pO2 HCO3 ABG pH ABG Total CO2 ABG O2 Saturation ABG Base Excess Rob Test ABG Potassium A-a O2 Difference Respiratory Index Glucose Lactate Vent Mode FiO2 PEEP Pressure Support Sodium 138 Potassium 4.3 Chloride 103 Carbon Dioxide 24 Anion Gap 15 BUN 24 H Creatinine 1.0 Est GFR ( Amer) > 60 Est GFR (Non-Af Amer) 57 POC Glucose (mg/dL) Random Glucose 169 H Hemoglobin A1c Calcium 9.6 Phosphorus Magnesium Total Bilirubin 0.7 AST 27 ALT 19 Alkaline Phosphatase 136 H D Troponin I 0.0160 NT-Pro-B Natriuret Pep 218 Total Protein 9.8 H Albumin 4.5 Globulin 5.4 H Albumin/Globulin Ratio 0.8 L Arterial Blood Potassium Urine Color Urine Clarity Urine pH Ur Specific Brice Urine Protein Urine Glucose (UA) Urine Ketones Urine Blood Urine Nitrate Urine Bilirubin Urine Urobilinogen Ur Leukocyte Esterase Urine WBC (Auto) Urine RBC (Auto) Ur Squamous Epith Cells Urine Bacteria 02/27/17 02/28/17 02/28/17 20:54 06:15 06:15 WBC 11.9 H RBC 4.37 Hgb 11.8 Hct 35.2 MCV 80.6 L MCH 26.9 L MCHC 33.4 RDW 16.2 H Plt Count 175 MPV 8.4 Neut % (Auto) 93.2 H Lymph % (Auto) 5.1 L [place] % (Auto) 1.5 Eos % (Auto) 0.0 Baso % (Auto) 0.2 Neut # 11.1 H Lymph # 0.6 L [place] # 0.2 Eos # 0.0 Baso # 0.0 Neutrophils % (Manual) 94 H Lymphocytes % (Manual) 5 L Monocytes % (Manual) 1 Platelet Estimate Normal PT INR APTT Puncture Site Rba pCO2 39 pO2 368 H HCO3 22.6 ABG pH 7.36 ABG Total CO2 23.2 ABG O2 Saturation 98.9 H ABG Base Excess -3.1 L Rob Test Na ABG Potassium 3.5 L A-a O2 Difference 296.0 Respiratory Index 0.8 Glucose 208 H Lactate 1.2 Vent Mode Cpap FiO2 100.0 PEEP 5 Pressure Support 15 Sodium 143.0 Potassium Chloride 113.0 H Carbon Dioxide Anion Gap BUN Creatinine Est GFR ( Amer) Est GFR (Non-Af Amer) POC Glucose (mg/dL) Random Glucose Hemoglobin A1c 8.7 H Calcium Phosphorus Magnesium Total Bilirubin AST ALT Alkaline Phosphatase Troponin I NT-Pro-B Natriuret Pep Total Protein Albumin Globulin Albumin/Globulin Ratio Arterial Blood Potassium 3.5 L Urine Color Urine Clarity Urine pH Ur Specific Brice Urine Protein Urine Glucose (UA) Urine Ketones Urine Blood Urine Nitrate Urine Bilirubin Urine Urobilinogen Ur Leukocyte Esterase Urine WBC (Auto) Urine RBC (Auto) Ur Squamous Epith Cells Urine Bacteria 02/28/17 02/28/17 02/28/17 06:17 07:35 09:43 WBC RBC Hgb Hct MCV MCH MCHC RDW Plt Count MPV Neut % (Auto) Lymph % (Auto) [place] % (Auto) Eos % (Auto) Baso % (Auto) Neut # Lymph # [place] # Eos # Baso # Neutrophils % (Manual) Lymphocytes % (Manual) Monocytes % (Manual) Platelet Estimate PT INR APTT Puncture Site pCO2 pO2 HCO3 ABG pH ABG Total CO2 ABG O2 Saturation ABG Base Excess Rob Test ABG Potassium A-a O2 Difference Respiratory Index Glucose Lactate Vent Mode FiO2 PEEP Pressure Support Sodium 137 Potassium 4.8 Chloride 104 Carbon Dioxide 23 Anion Gap 14 BUN 28 H Creatinine 1.0 Est GFR ( Amer) > 60 Est GFR (Non-Af Amer) 57 POC Glucose (mg/dL) 270 H Random Glucose 344 H Hemoglobin A1c Calcium 8.9 Phosphorus 4.2 Magnesium 1.8 Total Bilirubin 0.6 AST 27 ALT 18 Alkaline Phosphatase 103 Troponin I NT-Pro-B Natriuret Pep Total Protein 8.1 Albumin 3.9 Globulin 4.2 H Albumin/Globulin Ratio 0.9 L Arterial Blood Potassium Urine Color Yellow Urine Clarity Hazy Urine pH 5.0 Ur Specific Brice 1.030 Urine Protein 1+ H Urine Glucose (UA) 2+ H Urine Ketones Negative Urine Blood 2+ H Urine Nitrate Negative Urine Bilirubin Negative Urine Urobilinogen Normal Ur Leukocyte Esterase 2+ H Urine WBC (Auto) 32 H Urine RBC (Auto) 12 H Ur Squamous Epith Cells 7 H Urine Bacteria Occ H 02/28/17 11:33 WBC RBC Hgb Hct MCV MCH MCHC RDW Plt Count MPV Neut % (Auto) Lymph % (Auto) [place] % (Auto) Eos % (Auto) Baso % (Auto) Neut # Lymph # [place] # Eos # Baso # Neutrophils % (Manual) Lymphocytes % (Manual) Monocytes % (Manual) Platelet Estimate PT INR APTT Puncture Site pCO2 pO2 HCO3 ABG pH ABG Total CO2 ABG O2 Saturation ABG Base Excess Rob Test ABG Potassium A-a O2 Difference Respiratory Index Glucose Lactate Vent Mode FiO2 PEEP Pressure Support Sodium Potassium Chloride Carbon Dioxide Anion Gap BUN Creatinine Est GFR ( Amer) Est GFR (Non-Af Amer) POC Glucose (mg/dL) 326 H Random Glucose Hemoglobin A1c Calcium Phosphorus Magnesium Total Bilirubin AST ALT Alkaline Phosphatase Troponin I NT-Pro-B Natriuret Pep Total Protein Albumin Globulin Albumin/Globulin Ratio Arterial Blood Potassium Urine Color Urine Clarity Urine pH Ur Specific Brice Urine Protein Urine Glucose (UA) Urine Ketones Urine Blood Urine Nitrate Urine Bilirubin Urine Urobilinogen Ur Leukocyte Esterase Urine WBC (Auto) Urine RBC (Auto) Ur Squamous Epith Cells Urine Bacteria EKG/Cardiology Studies: Cardiology / EKG Studies 02/27/17 18:32 ELECTROCARDIOGRAM Stat Comment: Mode Of Transportation: BED Reason For Exam: SOB Isolation: Contact Fingerstick Blood Sugar Results: 270 Critical Care Progress Note - Nutrition Nutrition: Nutrition Category Date Time Status Consistent Carbohydrate [DIET] Diets 02/27/17 Breakfast Active Assessment/Plan - Assessment and Plan (Free Text) Assessment: 61M with past medical history of anxiety, bipolar disorder, asthma/ COPD, depression, seizures, sleep apnea, tracheostomy, presents to ER with c/o of cough, productive phlegm and SOB x 2 days. Patient is on ventilator because he did not tolerate trach collar. Neuro: Hx of Bipolar disorder Hx of depression Hx of seizures Sedation: Pain: Trazodone 150mg PO QHS, Percocet 5/325mg 1 tabPO Q4H PRN Quetiapine 400mg PO Q12H Lamotrigine (lamictal) 100mg PO Q12H Sertraline 100mg PO QHS Ativan 2 mg PO TID PRN Neurontin 800mg PO TID Cardio Crestor 5mg PO QHS Pulm PNA hx of sleep apnea hx of asthma trach on Ventilator Albuterol/Ipratropium 3cc INH RQID Solumedrol 125 mg IVP Q8H Benzonatate (Tessalon Perles) 100mg PO TID Robitussin 200mg PO QID Montelukast 10mg PO Q HS Endo T2DM Lantus 30 u SC HS Novolin R SC ACHS ISS ID Moxifloxacin IV 400mg 250cc IVPB Q24H Aztreonam 2gm NS @ 100cc IVPB Q8H Clindamycin 600mg NS @50cc IVPB Q6H Prophylaxis: Protonix 40mg POQD Lovenox 40mg SC QD 1/3 patient transferred to telemetry on vent via tracheostomy Dr. Alonzo Price DO PGY1 - Date & Time Date: 02/28/17 Time: 12:18 <Rodo Rosado - Last Filed: 02/28/17 16:55> CCU Objective - Vital Signs / Intake & Output Vital Signs (Last 4 hours): Vital Signs Pulse Resp BP Pulse Ox 02/28/17 15:32 89 22 142/73 93 L 02/28/17 15:00 85 24 93 L 02/28/17 14:32 90 19 151/82 H 94 L 02/28/17 14:00 90 21 95 02/28/17 13:32 93 H 19 138/87 97 02/28/17 13:00 100 H 22 97 Intake and Output (Last 8hrs): Intake & Output 02/28/17 02/28/17 02/28/17 06:59 14:59 22:59 Intake Total 400 540 Output Total 0 440 Balance 400 100 Weight 275 lb 9.245 oz Intake: Intake, IV Amount 400 100 Left Hand 100 Right Hand 400 0 Oral 440 Output: Urine 0 440 Urine, Voided 0 440 Stool 0 0 Emesis 0 - Medications Active Medications: Active Medications Generic Name Dose Route Start Last Admin Trade Name Freq PRN Reason Stop Dose Admin Albuterol/Ipratropium 3 ml 02/28/17 08:00 02/28/17 16:04 Duoneb 3 Mg/0.5 Mg (3 Ml) Ud INH 3 ml RQID SHAYLA Administration Benzonatate 100 mg 02/28/17 10:00 02/28/17 14:30 Tessalon Perles PO 100 mg TID [facility] Administration Enoxaparin Sodium 40 mg 02/28/17 10:00 02/28/17 10:40 Lovenox SC 40 mg DAILY SHAYLA Administration Gabapentin 800 mg 02/28/17 10:00 02/28/17 14:30 Neurontin PO 800 mg TID SHAYLA Administration Guaifenesin 200 mg 02/28/17 10:00 02/28/17 14:30 Robitussin PO 200 mg QID SHAYLA Administration Clindamycin Phosphate 600 mg/ 54 mls @ 100 mls/hr 02/28/17 03:00 02/28/17 14: 36 Sodium Chloride IVPB 100 mls/hr Q6H SHAYLA Administration Moxifloxacin HCl 400 mg in 250 mls @ 167 mls/hr 02/27/17 23:00 02/28/17 00:51 Avelox Iv 400mg/250ml Ns IVPB 167 mls/hr Q24H SHAYLA Administration Aztreonam 2 gm/ Sodium 100 mls @ 200 mls/hr 02/28/17 05:00 02/28/17 13:00 Chloride IVPB 200 mls/hr Q8H SHAYLA Administration Insulin Glargine 30 unit 02/28/17 22:00 Lantus SC [facility] Insulin Human Regular 0 unit 02/28/17 07:30 02/28/17 12:00 Novolin R SC 4 unit ACHS SHAYLA Administration Protocol Lamotrigine 100 mg 02/27/17 22:45 02/28/17 10:41 Lamictal PO 100 mg Q12H SHAYLA Administration Lorazepam 2 mg 02/27/17 22:36 Ativan PO TID PRN Anxiety Methylprednisolone 125 mg 02/28/17 04:00 02/28/17 12:45 Solu-Medrol IVP 125 mg Q8H SHAYLA Administration Montelukast Sodium 10 mg 02/28/17 22:00 Singulair PO HS SHAYLA Oxycodone/Acetaminophen 1 tab 02/27/17 22:36 02/28/17 14:30 Percocet 5/325 Mg Tab PO 03/02/17 22:37 1 tab Q4H PRN Administration Pain, moderate (4-7) Pantoprazole Sodium 40 mg 02/28/17 10:00 02/28/17 10:44 Protonix Susp PO Not Given DAILY SHAYLA Quetiapine Fumarate 400 mg 02/27/17 22:45 02/28/17 10:41 Seroquel PO 400 mg Q12H SHAYLA Administration Rosuvastatin Calcium 5 mg 02/27/17 22:45 02/28/17 00:57 Crestor PO 5 mg HS SHAYLA Administration Sertraline HCl 100 mg 02/28/17 22:00 Zoloft PO HS SHAYLA Trazodone HCl 150 mg 02/28/17 22:00 Desyrel PO HS SHAYLA - Patient Studies Lab Studies: Lab Studies 02/28/17 02/28/17 02/28/17 Range/Units 16:15 11:33 09:43 WBC (4.8-10.8) K/uL RBC (3.80-5.20) Mil/uL Hgb (11.0-16.0) g/dL Hct (34.0-47.0) % MCV (81.0-99.0) fL MCH (27.0-31.0) pg MCHC (33.0-37.0) g/dL RDW (11.5-14.5) % Plt Count (130-400) K/uL MPV (7.2-11.7) fL Neut % (Auto) (50.0-75.0) % Lymph % (Auto) (20.0-40.0) % [place] % (Auto) (0.0-10.0) % Eos % (Auto) (0.0-4.0) % Baso % (Auto) (0.0-2.0) % Neut # (1.8-7.0) K/uL Lymph # (1.0-4.3) K/uL [place] # (0.0-0.8) K/uL Eos # (0.0-0.7) K/uL Baso # (0.0-0.2) K/uL Neutrophils % (Manual) (50-75) % Lymphocytes % (Manual) (20-40) % Monocytes % (Manual) (0-10) % Platelet Estimate (NORMAL) PT (9.7-12.2) SECONDS INR APTT (21-34) SECONDS Puncture Site pCO2 (35-45) mm/Hg pO2 (80-100) mm/Hg HCO3 (21-28) mmol/L ABG pH (7.35-7.45) ABG Total CO2 (22-28) mmol/L ABG O2 Saturation (95-98) % ABG Base Excess (-2.0-3.0) mmol/L Rob Test ABG Potassium (3.6-5.2) mmol/L A-a O2 Difference mm/Hg Respiratory Index Glucose (65-105) mg/dl Lactate (0.7-2.1) mmol/L Vent Mode FiO2 % PEEP Pressure Support Sodium (132-148) mmol/L Potassium (3.6-5.2) mmol/L Chloride (98-107) mmol/L Carbon Dioxide (22-30) mmol/L Anion Gap (10-20) BUN (7-17) mg/dL Creatinine (0.7-1.2) mg/dL Est GFR ( Amer) Est GFR (Non-Af Amer) POC Glucose (mg/dL) 301 H 326 H (65-110) mg/dL Random Glucose (65-105) mg/dL Hemoglobin A1c (4.2-6.5) % Calcium (8.6-10.4) mg/dl Phosphorus (2.5-4.5) mg/dL Magnesium (1.6-2.3) mg/dL Total Bilirubin (0.2-1.3) mg/dL AST (14-36) U/L ALT (9-52) U/L Alkaline Phosphatase (38-126) U/L Troponin I (0.00-0.120) ng/mL NT-Pro-B Natriuret Pep (0-900) pg/mL Total Protein (6.3-8.3) g/dL Albumin (3.5-5.0) g/dL Globulin (2.2-3.9) gm/dL Albumin/Globulin Ratio (1.0-2.1) Arterial Blood Potassium (3.6-5.2) mmol/L Urine Color Yellow (YELLOW) Urine Clarity Hazy (Clear) Urine pH 5.0 (5.0-8.0) Ur Specific Brice 1.030 (1.003-1.030) Urine Protein 1+ H (NEGATIVE) mg/dL Urine Glucose (UA) 2+ H (Normal) mg/dL Urine Ketones Negative (NEGATIVE) mg/dL Urine Blood 2+ H (NEGATIVE) Urine Nitrate Negative (NEGATIVE) Urine Bilirubin Negative (NEGATIVE) Urine Urobilinogen Normal (0.2-1.0) mg/dL Ur Leukocyte Esterase 2+ H (Negative) Brian/uL Urine WBC (Auto) 32 H (0-5) /hpf Urine RBC (Auto) 12 H (0-3) /hpf Ur Squamous Epith Cells 7 H (0-5) /hpf Urine Bacteria Occ H (<OCC) 02/28/17 02/28/17 02/28/17 Range/Units 07:35 06:17 06:15 WBC (4.8-10.8) K/uL RBC (3.80-5.20) Mil/uL Hgb (11.0-16.0) g/dL Hct (34.0-47.0) % MCV (81.0-99.0) fL MCH (27.0-31.0) pg MCHC (33.0-37.0) g/dL RDW (11.5-14.5) % Plt Count (130-400) K/uL MPV (7.2-11.7) fL Neut % (Auto) (50.0-75.0) % Lymph % (Auto) (20.0-40.0) % [place] % (Auto) (0.0-10.0) % Eos % (Auto) (0.0-4.0) % Baso % (Auto) (0.0-2.0) % Neut # (1.8-7.0) K/uL Lymph # (1.0-4.3) K/uL [place] # (0.0-0.8) K/uL Eos # (0.0-0.7) K/uL Baso # (0.0-0.2) K/uL Neutrophils % (Manual) (50-75) % Lymphocytes % (Manual) (20-40) % Monocytes % (Manual) (0-10) % Platelet Estimate (NORMAL) PT (9.7-12.2) SECONDS INR APTT (21-34) SECONDS Puncture Site pCO2 (35-45) mm/Hg pO2 (80-100) mm/Hg HCO3 (21-28) mmol/L ABG pH (7.35-7.45) ABG Total CO2 (22-28) mmol/L ABG O2 Saturation (95-98) % ABG Base Excess (-2.0-3.0) mmol/L Rob Test ABG Potassium (3.6-5.2) mmol/L A-a O2 Difference mm/Hg Respiratory Index Glucose (65-105) mg/dl Lactate (0.7-2.1) mmol/L Vent Mode FiO2 % PEEP Pressure Support Sodium 137 (132-148) mmol/L Potassium 4.8 (3.6-5.2) mmol/L Chloride 104 (98-107) mmol/L Carbon Dioxide 23 (22-30) mmol/L Anion Gap 14 (10-20) BUN 28 H (7-17) mg/dL Creatinine 1.0 (0.7-1.2) mg/dL Est GFR ( Amer) > 60 Est GFR (Non-Af Amer) 57 POC Glucose (mg/dL) 270 H (65-110) mg/dL Random Glucose 344 H (65-105) mg/dL Hemoglobin A1c 8.7 H (4.2-6.5) % Calcium 8.9 (8.6-10.4) mg/dl Phosphorus 4.2 (2.5-4.5) mg/dL Magnesium 1.8 (1.6-2.3) mg/dL Total Bilirubin 0.6 (0.2-1.3) mg/dL AST 27 (14-36) U/L ALT 18 (9-52) U/L Alkaline Phosphatase 103 (38-126) U/L Troponin I (0.00-0.120) ng/mL NT-Pro-B Natriuret Pep (0-900) pg/mL Total Protein 8.1 (6.3-8.3) g/dL Albumin 3.9 (3.5-5.0) g/dL Globulin 4.2 H (2.2-3.9) gm/dL Albumin/Globulin Ratio 0.9 L (1.0-2.1) Arterial Blood Potassium (3.6-5.2) mmol/L Urine Color (YELLOW) Urine Clarity (Clear) Urine pH (5.0-8.0) Ur Specific Brice (1.003-1.030) Urine Protein (NEGATIVE) mg/dL Urine Glucose (UA) (Normal) mg/dL Urine Ketones (NEGATIVE) mg/dL Urine Blood (NEGATIVE) Urine Nitrate (NEGATIVE) Urine Bilirubin (NEGATIVE) Urine Urobilinogen (0.2-1.0) mg/dL Ur Leukocyte Esterase (Negative) Brian/uL Urine WBC (Auto) (0-5) /hpf Urine RBC (Auto) (0-3) /hpf Ur Squamous Epith Cells (0-5) /hpf Urine Bacteria (<OCC) 02/28/17 02/27/17 02/27/17 Range/Units 06:15 20:54 18:40 WBC 11.9 H (4.8-10.8) K/uL RBC 4.37 (3.80-5.20) Mil/uL Hgb 11.8 (11.0-16.0) g/dL Hct 35.2 (34.0-47.0) % MCV 80.6 L (81.0-99.0) fL MCH 26.9 L (27.0-31.0) pg MCHC 33.4 (33.0-37.0) g/dL RDW 16.2 H (11.5-14.5) % Plt Count 175 (130-400) K/uL MPV 8.4 (7.2-11.7) fL Neut % (Auto) 93.2 H (50.0-75.0) % Lymph % (Auto) 5.1 L (20.0-40.0) % [place] % (Auto) 1.5 (0.0-10.0) % Eos % (Auto) 0.0 (0.0-4.0) % Baso % (Auto) 0.2 (0.0-2.0) % Neut # 11.1 H (1.8-7.0) K/uL Lymph # 0.6 L (1.0-4.3) K/uL [place] # 0.2 (0.0-0.8) K/uL Eos # 0.0 (0.0-0.7) K/uL Baso # 0.0 (0.0-0.2) K/uL Neutrophils % (Manual) 94 H (50-75) % Lymphocytes % (Manual) 5 L (20-40) % Monocytes % (Manual) 1 (0-10) % Platelet Estimate Normal (NORMAL) PT (9.7-12.2) SECONDS INR APTT (21-34) SECONDS Puncture Site Rba pCO2 39 (35-45) mm/Hg pO2 368 H (80-100) mm/Hg HCO3 22.6 (21-28) mmol/L ABG pH 7.36 (7.35-7.45) ABG Total CO2 23.2 (22-28) mmol/L ABG O2 Saturation 98.9 H (95-98) % ABG Base Excess -3.1 L (-2.0-3.0) mmol/L Rob Test Na ABG Potassium 3.5 L (3.6-5.2) mmol/L A-a O2 Difference 296.0 mm/Hg Respiratory Index 0.8 Glucose 208 H (65-105) mg/dl Lactate 1.2 (0.7-2.1) mmol/L Vent Mode Cpap FiO2 100.0 % PEEP 5 Pressure Support 15 Sodium 143.0 138 (132-148) mmol/L Potassium 4.3 (3.6-5.2) mmol/L Chloride 113.0 H 103 (98-107) mmol/L Carbon Dioxide 24 (22-30) mmol/L Anion Gap 15 (10-20) BUN 24 H (7-17) mg/dL Creatinine 1.0 (0.7-1.2) mg/dL Est GFR ( Amer) > 60 Est GFR (Non-Af Amer) 57 POC Glucose (mg/dL) (65-110) mg/dL Random Glucose 169 H (65-105) mg/dL Hemoglobin A1c (4.2-6.5) % Calcium 9.6 (8.6-10.4) mg/dl Phosphorus (2.5-4.5) mg/dL Magnesium (1.6-2.3) mg/dL Total Bilirubin 0.7 (0.2-1.3) mg/dL AST 27 (14-36) U/L ALT 19 (9-52) U/L Alkaline Phosphatase 136 H D (38-126) U/L Troponin I 0.0160 (0.00-0.120) ng/mL NT-Pro-B Natriuret Pep 218 (0-900) pg/mL Total Protein 9.8 H (6.3-8.3) g/dL Albumin 4.5 (3.5-5.0) g/dL Globulin 5.4 H (2.2-3.9) gm/dL Albumin/Globulin Ratio 0.8 L (1.0-2.1) Arterial Blood Potassium 3.5 L (3.6-5.2) mmol/L Urine Color (YELLOW) Urine Clarity (Clear) Urine pH (5.0-8.0) Ur Specific Brice (1.003-1.030) Urine Protein (NEGATIVE) mg/dL Urine Glucose (UA) (Normal) mg/dL Urine Ketones (NEGATIVE) mg/dL Urine Blood (NEGATIVE) Urine Nitrate (NEGATIVE) Urine Bilirubin (NEGATIVE) Urine Urobilinogen (0.2-1.0) mg/dL Ur Leukocyte Esterase (Negative) Brian/uL Urine WBC (Auto) (0-5) /hpf Urine RBC (Auto) (0-3) /hpf Ur Squamous Epith Cells (0-5) /hpf Urine Bacteria (<OCC) 02/27/17 02/27/17 Range/Units 18:40 18:40 WBC 16.0 H (4.8-10.8) K/uL RBC 5.16 (3.80-5.20) Mil/uL Hgb 13.7 (11.0-16.0) g/dL Hct 41.0 (34.0-47.0) % MCV 79.6 L (81.0-99.0) fL MCH 26.5 L (27.0-31.0) pg MCHC 33.3 (33.0-37.0) g/dL RDW 16.4 H (11.5-14.5) % Plt Count 232 (130-400) K/uL MPV 8.3 (7.2-11.7) fL Neut % (Auto) 63.4 (50.0-75.0) % Lymph % (Auto) 27.6 (20.0-40.0) % [place] % (Auto) 8.0 (0.0-10.0) % Eos % (Auto) 0.6 (0.0-4.0) % Baso % (Auto) 0.4 (0.0-2.0) % Neut # 10.1 H (1.8-7.0) K/uL Lymph # 4.4 H (1.0-4.3) K/uL [place] # 1.3 H (0.0-0.8) K/uL Eos # 0.1 (0.0-0.7) K/uL Baso # 0.1 (0.0-0.2) K/uL Neutrophils % (Manual) (50-75) % Lymphocytes % (Manual) (20-40) % Monocytes % (Manual) (0-10) % Platelet Estimate (NORMAL) PT 12.0 (9.7-12.2) SECONDS INR 1.1 APTT 33 (21-34) SECONDS Puncture Site pCO2 (35-45) mm/Hg pO2 (80-100) mm/Hg HCO3 (21-28) mmol/L ABG pH (7.35-7.45) ABG Total CO2 (22-28) mmol/L ABG O2 Saturation (95-98) % ABG Base Excess (-2.0-3.0) mmol/L Rob Test ABG Potassium (3.6-5.2) mmol/L A-a O2 Difference mm/Hg Respiratory Index Glucose (65-105) mg/dl Lactate (0.7-2.1) mmol/L Vent Mode FiO2 % PEEP Pressure Support Sodium (132-148) mmol/L Potassium (3.6-5.2) mmol/L Chloride (98-107) mmol/L Carbon Dioxide (22-30) mmol/L Anion Gap (10-20) BUN (7-17) mg/dL Creatinine (0.7-1.2) mg/dL Est GFR ( Amer) Est GFR (Non-Af Amer) POC Glucose (mg/dL) (65-110) mg/dL Random Glucose (65-105) mg/dL Hemoglobin A1c (4.2-6.5) % Calcium (8.6-10.4) mg/dl Phosphorus (2.5-4.5) mg/dL Magnesium (1.6-2.3) mg/dL Total Bilirubin (0.2-1.3) mg/dL AST (14-36) U/L ALT (9-52) U/L Alkaline Phosphatase (38-126) U/L Troponin I (0.00-0.120) ng/mL NT-Pro-B Natriuret Pep (0-900) pg/mL Total Protein (6.3-8.3) g/dL Albumin (3.5-5.0) g/dL Globulin (2.2-3.9) gm/dL Albumin/Globulin Ratio (1.0-2.1) Arterial Blood Potassium (3.6-5.2) mmol/L Urine Color (YELLOW) Urine Clarity (Clear) Urine pH (5.0-8.0) Ur Specific Brice (1.003-1.030) Urine Protein (NEGATIVE) mg/dL Urine Glucose (UA) (Normal) mg/dL Urine Ketones (NEGATIVE) mg/dL Urine Blood (NEGATIVE) Urine Nitrate (NEGATIVE) Urine Bilirubin (NEGATIVE) Urine Urobilinogen (0.2-1.0) mg/dL Ur Leukocyte Esterase (Negative) Brian/uL Urine WBC (Auto) (0-5) /hpf Urine RBC (Auto) (0-3) /hpf Ur Squamous Epith Cells (0-5) /hpf Urine Bacteria (<OCC) Laboratory Results - last 24 hr 02/27/17 02/27/17 02/27/17 18:40 18:40 18:40 WBC 16.0 H RBC 5.16 Hgb 13.7 Hct 41.0 MCV 79.6 L MCH 26.5 L MCHC 33.3 RDW 16.4 H Plt Count 232 MPV 8.3 Neut % (Auto) 63.4 Lymph % (Auto) 27.6 [place] % (Auto) 8.0 Eos % (Auto) 0.6 Baso % (Auto) 0.4 Neut # 10.1 H Lymph # 4.4 H [place] # 1.3 H Eos # 0.1 Baso # 0.1 Neutrophils % (Manual) Lymphocytes % (Manual) Monocytes % (Manual) Platelet Estimate PT 12.0 INR 1.1 APTT 33 Puncture Site pCO2 pO2 HCO3 ABG pH ABG Total CO2 ABG O2 Saturation ABG Base Excess Rob Test ABG Potassium A-a O2 Difference Respiratory Index Glucose Lactate Vent Mode FiO2 PEEP Pressure Support Sodium 138 Potassium 4.3 Chloride 103 Carbon Dioxide 24 Anion Gap 15 BUN 24 H Creatinine 1.0 Est GFR ( Amer) > 60 Est GFR (Non-Af Amer) 57 POC Glucose (mg/dL) Random Glucose 169 H Hemoglobin A1c Calcium 9.6 Phosphorus Magnesium Total Bilirubin 0.7 AST 27 ALT 19 Alkaline Phosphatase 136 H D Troponin I 0.0160 NT-Pro-B Natriuret Pep 218 Total Protein 9.8 H Albumin 4.5 Globulin 5.4 H Albumin/Globulin Ratio 0.8 L Arterial Blood Potassium Urine Color Urine Clarity Urine pH Ur Specific Brice Urine Protein Urine Glucose (UA) Urine Ketones Urine Blood Urine Nitrate Urine Bilirubin Urine Urobilinogen Ur Leukocyte Esterase Urine WBC (Auto) Urine RBC (Auto) Ur Squamous Epith Cells Urine Bacteria 02/27/17 02/28/17 02/28/17 20:54 06:15 06:15 WBC 11.9 H RBC 4.37 Hgb 11.8 Hct 35.2 MCV 80.6 L MCH 26.9 L MCHC 33.4 RDW 16.2 H Plt Count 175 MPV 8.4 Neut % (Auto) 93.2 H Lymph % (Auto) 5.1 L [place] % (Auto) 1.5 Eos % (Auto) 0.0 Baso % (Auto) 0.2 Neut # 11.1 H Lymph # 0.6 L [place] # 0.2 Eos # 0.0 Baso # 0.0 Neutrophils % (Manual) 94 H Lymphocytes % (Manual) 5 L Monocytes % (Manual) 1 Platelet Estimate Normal PT INR APTT Puncture Site Rba pCO2 39 pO2 368 H HCO3 22.6 ABG pH 7.36 ABG Total CO2 23.2 ABG O2 Saturation 98.9 H ABG Base Excess -3.1 L Rob Test Na ABG Potassium 3.5 L A-a O2 Difference 296.0 Respiratory Index 0.8 Glucose 208 H Lactate 1.2 Vent Mode Cpap FiO2 100.0 PEEP 5 Pressure Support 15 Sodium 143.0 Potassium Chloride 113.0 H Carbon Dioxide Anion Gap BUN Creatinine Est GFR ( Amer) Est GFR (Non-Af Amer) POC Glucose (mg/dL) Random Glucose Hemoglobin A1c 8.7 H Calcium Phosphorus Magnesium Total Bilirubin AST ALT Alkaline Phosphatase Troponin I NT-Pro-B Natriuret Pep Total Protein Albumin Globulin Albumin/Globulin Ratio Arterial Blood Potassium 3.5 L Urine Color Urine Clarity Urine pH Ur Specific Brice Urine Protein Urine Glucose (UA) Urine Ketones Urine Blood Urine Nitrate Urine Bilirubin Urine Urobilinogen Ur Leukocyte Esterase Urine WBC (Auto) Urine RBC (Auto) Ur Squamous Epith Cells Urine Bacteria 02/28/17 02/28/17 02/28/17 06:17 07:35 09:43 WBC RBC Hgb Hct MCV MCH MCHC RDW Plt Count MPV Neut % (Auto) Lymph % (Auto) [place] % (Auto) Eos % (Auto) Baso % (Auto) Neut # Lymph # [place] # Eos # Baso # Neutrophils % (Manual) Lymphocytes % (Manual) Monocytes % (Manual) Platelet Estimate PT INR APTT Puncture Site pCO2 pO2 HCO3 ABG pH ABG Total CO2 ABG O2 Saturation ABG Base Excess Rob Test ABG Potassium A-a O2 Difference Respiratory Index Glucose Lactate Vent Mode FiO2 PEEP Pressure Support Sodium 137 Potassium 4.8 Chloride 104 Carbon Dioxide 23 Anion Gap 14 BUN 28 H Creatinine 1.0 Est GFR ( Amer) > 60 Est GFR (Non-Af Amer) 57 POC Glucose (mg/dL) 270 H Random Glucose 344 H Hemoglobin A1c Calcium 8.9 Phosphorus 4.2 Magnesium 1.8 Total Bilirubin 0.6 AST 27 ALT 18 Alkaline Phosphatase 103 Troponin I NT-Pro-B Natriuret Pep Total Protein 8.1 Albumin 3.9 Globulin 4.2 H Albumin/Globulin Ratio 0.9 L Arterial Blood Potassium Urine Color Yellow Urine Clarity Hazy Urine pH 5.0 Ur Specific Brice 1.030 Urine Protein 1+ H Urine Glucose (UA) 2+ H Urine Ketones Negative Urine Blood 2+ H Urine Nitrate Negative Urine Bilirubin Negative Urine Urobilinogen Normal Ur Leukocyte Esterase 2+ H Urine WBC (Auto) 32 H Urine RBC (Auto) 12 H Ur Squamous Epith Cells 7 H Urine Bacteria Occ H 02/28/17 02/28/17 11:33 16:15 WBC RBC Hgb Hct MCV MCH MCHC RDW Plt Count MPV Neut % (Auto) Lymph % (Auto) [place] % (Auto) Eos % (Auto) Baso % (Auto) Neut # Lymph # [place] # Eos # Baso # Neutrophils % (Manual) Lymphocytes % (Manual) Monocytes % (Manual) Platelet Estimate PT INR APTT Puncture Site pCO2 pO2 HCO3 ABG pH ABG Total CO2 ABG O2 Saturation ABG Base Excess Rob Test ABG Potassium A-a O2 Difference Respiratory Index Glucose Lactate Vent Mode FiO2 PEEP Pressure Support Sodium Potassium Chloride Carbon Dioxide Anion Gap BUN Creatinine Est GFR ( Amer) Est GFR (Non-Af Amer) POC Glucose (mg/dL) 326 H 301 H Random Glucose Hemoglobin A1c Calcium Phosphorus Magnesium Total Bilirubin AST ALT Alkaline Phosphatase Troponin I NT-Pro-B Natriuret Pep Total Protein Albumin Globulin Albumin/Globulin Ratio Arterial Blood Potassium Urine Color Urine Clarity Urine pH Ur Specific Brice Urine Protein Urine Glucose (UA) Urine Ketones Urine Blood Urine Nitrate Urine Bilirubin Urine Urobilinogen Ur Leukocyte Esterase Urine WBC (Auto) Urine RBC (Auto) Ur Squamous Epith Cells Urine Bacteria EKG/Cardiology Studies: Cardiology / EKG Studies 02/27/17 18:32 ELECTROCARDIOGRAM Stat Comment: Mode Of Transportation: BED Reason For Exam: SOB Isolation: Contact Critical Care Progress Note - Nutrition Nutrition: Nutrition Category Date Time Status Consistent Carbohydrate [DIET] Diets 02/27/17 Breakfast Active Attending/Attestation - Attestation I have personally seen and examined this patient.: Yes I have fully participated in the care of the patient.: Yes I have reviewed all pertinent clinical information: Yes Notes (Text): 02/28/17 16:54 patient seen and examined in the intensive care unit. Stable for transfer to floor Tracheal aspirate for culture and sensiti Continue antibiotics Continue nebulizer treatment wean off ventilator
--- NOTE | 2017-02-28 17:56 | CP.PCM.CON ---
History of Present Illness - History of Present Illness History of Present Illness: Patient is a 61 year old female with history of COPD/emphysema, chronic respiratory failure, tracheostomy, bronchiectasis, sleep apnea who initially presented on 02/27/17 for complaints of worsening shortness of breath and cough productive of yellow sputum. While in the ED, she was placed on the vent trough the trach with some improvement. She received Duoneb with minimal improvement and was admitted to the ICU. While in the ICU she was placed on the vent through the trach collar. She was then switched to CPAP, tolerating it well, saturating at 93%. . Her shortness of breath is improved. She is able to expectorate well and does not have a lot of secretions. She also complains of epigastric and RUQ pain. PMH: anxiety, asthma, COPD, emphysema,bronchiectasis, sleep apnea, CHF, HTN, bipolar disorder, depression, seizures disorder PSH: appendectomy, cholecystectomy, tracheostomy Family hx: unknown Home Meds: see MAR Allergies: ASA, Ceftriaxone, Ibuprofen, Iodine, raspberry - anaphylaxis Review of Systems - Review of Systems Systems not reviewed;Unavailable: Other (vent support) Past Patient History - Infectious Disease Hx of Infectious Diseases: None - Tetanus Immunizations Tetanus Immunization: Unknown - Past Medical History & Family History Past Medical History?: Yes - Past Social History Smoking Status: Unknown If Ever Smoked - CARDIAC Hx Congestive Heart Failure: Yes Hx Hypertension: Yes - PULMONARY Hx Respiratory Disorders: Yes Hx Asthma: Yes Hx Bronchitis: Yes Hx Chronic Obstructive Pulmonary Disease (COPD): Yes Hx Emphysema: Yes Hx Pneumonia: Yes Hx Sleep Apnea: Yes Other/Comment: trachestomy - NEUROLOGICAL Hx Seizures: Yes - HEENT Hx HEENT Problems: Yes Hx Cataracts: Yes - RENAL Hx Chronic Kidney Disease: No - ENDOCRINE/METABOLIC Hx Hypothyroidism: No - HEMATOLOGICAL/ONCOLOGICAL Hx Human Immunodeficiency Virus (HIV): No - INTEGUMENTARY Hx Dermatological Problems: No - MUSCULOSKELETAL/RHEUMATOLOGICAL Hx Arthritis: No Hx Falls: No Hx Rheumatoid Arthritis: No - GASTROINTESTINAL Hx Gastrointestinal Disorders: Yes Other/Comment: cholecystectomy - GENITOURINARY/GYNECOLOGICAL Hx Sexually Transmitted Disorders: No - PSYCHIATRIC Hx Anxiety: Yes Hx Bipolar Disorder: Yes Hx Depression: Yes Hx Substance Use: No - SURGICAL HISTORY Hx Appendectomy: Yes Hx Cholecystectomy: Yes - ANESTHESIA Hx Anesthesia: Yes Hx Anesthesia Reactions: No Hx Malignant Hyperthermia: No Meds Allergies/Adverse Reactions: Allergies Allergy/AdvReac Type Severity Reaction Status Date / Time aspirin Allergy ANAPHYLAXIS Verified 02/27/17 18:25 ceftriaxone sodium Allergy ANAPHYLAXIS Verified 02/27/17 18:25 [From Rocephin] ibuprofen [From Motrin] Allergy ANAPHYLAXIS Verified 02/27/17 18:25 iodine Allergy ANAPHYLAXIS Verified 02/27/17 18:25 raspberry Allergy ANAPHYLAXIS Verified 02/27/17 18:25 - Medications Medications: Current Medications Albuterol/Ipratropium (Duoneb 3 Mg/0.5 Mg (3 Ml) Ud) 3 ml INH RQID [facility] Last Admin: 02/28/17 16:04 Dose: 3 ml Benzonatate (Tessalon Perles) 100 mg PO TID [facility] Last Admin: 02/28/17 14:30 Dose: 100 mg Enoxaparin Sodium (Lovenox) 40 mg SC DAILY [facility] Last Admin: 02/28/17 10:40 Dose: 40 mg Gabapentin (Neurontin) 800 mg PO TID [facility] Last Admin: 02/28/17 14:30 Dose: 800 mg Guaifenesin (Robitussin) 200 mg PO QID [facility] Last Admin: 02/28/17 14:30 Dose: 200 mg Clindamycin Phosphate 600 mg/ (Sodium Chloride) 54 mls @ 100 mls/hr IVPB Q6H [facility] Last Admin: 02/28/17 14:36 Dose: 100 mls/hr Moxifloxacin HCl (Avelox Iv 400mg/250ml Ns) 400 mg in 250 mls @ 167 mls/hr IVPB Q24H [facility] Last Admin: 02/28/17 00:51 Dose: 167 mls/hr Aztreonam 2 gm/ Sodium (Chloride) 100 mls @ 200 mls/hr IVPB Q8H [facility] Last Admin: 02/28/17 13:00 Dose: 200 mls/hr Insulin Glargine (Lantus) 30 unit SC HS [facility] Insulin Human Regular (Novolin R) 0 unit SC ACHS [facility] PRN Reason: Protocol Last Admin: 02/28/17 12:00 Dose: 4 unit Lamotrigine (Lamictal) 100 mg PO Q12H [facility] Last Admin: 02/28/17 10:41 Dose: 100 mg Lorazepam (Ativan) 2 mg PO TID PRN PRN Reason: Anxiety Methylprednisolone (Solu-Medrol) 125 mg IVP Q8H [facility] Last Admin: 02/28/17 12:45 Dose: 125 mg Montelukast Sodium (Singulair) 10 mg PO [facility] Oxycodone/Acetaminophen (Percocet 5/325 Mg Tab) 1 tab PO Q4H PRN PRN Reason: Pain, moderate (4-7) Stop: 03/02/17 22:37 Last Admin: 02/28/17 14:30 Dose: 1 tab Pantoprazole Sodium (Protonix Susp) 40 mg PO DAILY [facility] Last Admin: 02/28/17 10:44 Dose: Not Given Quetiapine Fumarate (Seroquel) 400 mg PO Q12H [facility] Last Admin: 02/28/17 10:41 Dose: 400 mg Rosuvastatin Calcium (Crestor) 5 mg PO [facility] Last Admin: 02/28/17 00:57 Dose: 5 mg Sertraline HCl (Zoloft) 100 mg PO [facility] Trazodone HCl (Desyrel) 150 mg PO [facility] Physical Exam - Head Exam Head Exam: ATRAUMATIC, NORMOCEPHALIC - ENT Exam ENT Exam: Mucous Membranes Moist - Respiratory Exam Respiratory Exam: Rales, Rhonchi - Cardiovascular Exam Cardiovascular Exam: REGULAR RHYTHM - GI/Abdominal Exam GI & Abdominal Exam: Normal Bowel Sounds, Soft Results - Vital Signs Recent Vital Signs: Last Vital Signs Temp 98 F 02/28/17 08:00 Pulse 89 02/28/17 15:32 Resp 22 02/28/17 15:32 BP 142/73 02/28/17 15:32 Pulse Ox 93 L 02/28/17 15:32 - Labs Result Diagrams: 02/28/17 06:15 02/28/17 06:17 Labs: Laboratory Results - last 24 hr 02/27/17 02/27/17 02/27/17 18:40 18:40 18:40 WBC 16.0 H RBC 5.16 Hgb 13.7 Hct 41.0 MCV 79.6 L MCH 26.5 L MCHC 33.3 RDW 16.4 H Plt Count 232 MPV 8.3 Neut % (Auto) 63.4 Lymph % (Auto) 27.6 [place] % (Auto) 8.0 Eos % (Auto) 0.6 Baso % (Auto) 0.4 Neut # 10.1 H Lymph # 4.4 H [place] # 1.3 H Eos # 0.1 Baso # 0.1 Neutrophils % (Manual) Lymphocytes % (Manual) Monocytes % (Manual) Platelet Estimate PT 12.0 INR 1.1 APTT 33 Puncture Site pCO2 pO2 HCO3 ABG pH ABG Total CO2 ABG O2 Saturation ABG Base Excess Rob Test ABG Potassium A-a O2 Difference Respiratory Index Glucose Lactate Vent Mode FiO2 PEEP Pressure Support Sodium 138 Potassium 4.3 Chloride 103 Carbon Dioxide 24 Anion Gap 15 BUN 24 H Creatinine 1.0 Est GFR ( Amer) > 60 Est GFR (Non-Af Amer) 57 POC Glucose (mg/dL) Random Glucose 169 H Hemoglobin A1c Calcium 9.6 Phosphorus Magnesium Total Bilirubin 0.7 AST 27 ALT 19 Alkaline Phosphatase 136 H D Troponin I 0.0160 NT-Pro-B Natriuret Pep 218 Total Protein 9.8 H Albumin 4.5 Globulin 5.4 H Albumin/Globulin Ratio 0.8 L Arterial Blood Potassium Urine Color Urine Clarity Urine pH Ur Specific [place] Urine Protein Urine Glucose (UA) Urine Ketones Urine Blood Urine Nitrate Urine Bilirubin Urine Urobilinogen Ur Leukocyte Esterase Urine WBC (Auto) Urine RBC (Auto) Ur Squamous Epith Cells Urine Bacteria 02/27/17 02/28/17 02/28/17 20:54 06:15 06:15 WBC 11.9 H RBC 4.37 Hgb 11.8 Hct 35.2 MCV 80.6 L MCH 26.9 L MCHC 33.4 RDW 16.2 H Plt Count 175 MPV 8.4 Neut % (Auto) 93.2 H Lymph % (Auto) 5.1 L [place] % (Auto) 1.5 Eos % (Auto) 0.0 Baso % (Auto) 0.2 Neut # 11.1 H Lymph # 0.6 L [place] # 0.2 Eos # 0.0 Baso # 0.0 Neutrophils % (Manual) 94 H Lymphocytes % (Manual) 5 L Monocytes % (Manual) 1 Platelet Estimate Normal PT INR APTT Puncture Site Rba pCO2 39 pO2 368 H HCO3 22.6 ABG pH 7.36 ABG Total CO2 23.2 ABG O2 Saturation 98.9 H ABG Base Excess -3.1 L Rob Test Na ABG Potassium 3.5 L A-a O2 Difference 296.0 Respiratory Index 0.8 Glucose 208 H Lactate 1.2 Vent Mode Cpap FiO2 100.0 PEEP 5 Pressure Support 15 Sodium 143.0 Potassium Chloride 113.0 H Carbon Dioxide Anion Gap BUN Creatinine Est GFR ( Amer) Est GFR (Non-Af Amer) POC Glucose (mg/dL) Random Glucose Hemoglobin A1c 8.7 H Calcium Phosphorus Magnesium Total Bilirubin AST ALT Alkaline Phosphatase Troponin I NT-Pro-B Natriuret Pep Total Protein Albumin Globulin Albumin/Globulin Ratio Arterial Blood Potassium 3.5 L Urine Color Urine Clarity Urine pH Ur Specific [place] Urine Protein Urine Glucose (UA) Urine Ketones Urine Blood Urine Nitrate Urine Bilirubin Urine Urobilinogen Ur Leukocyte Esterase Urine WBC (Auto) Urine RBC (Auto) Ur Squamous Epith Cells Urine Bacteria 02/28/17 02/28/17 02/28/17 06:17 07:35 09:43 WBC RBC Hgb Hct MCV MCH MCHC RDW Plt Count MPV Neut % (Auto) Lymph % (Auto) [place] % (Auto) Eos % (Auto) Baso % (Auto) Neut # Lymph # [place] # Eos # Baso # Neutrophils % (Manual) Lymphocytes % (Manual) Monocytes % (Manual) Platelet Estimate PT INR APTT Puncture Site pCO2 pO2 HCO3 ABG pH ABG Total CO2 ABG O2 Saturation ABG Base Excess Rob Test ABG Potassium A-a O2 Difference Respiratory Index Glucose Lactate Vent Mode FiO2 PEEP Pressure Support Sodium 137 Potassium 4.8 Chloride 104 Carbon Dioxide 23 Anion Gap 14 BUN 28 H Creatinine 1.0 Est GFR ( Amer) > 60 Est GFR (Non-Af Amer) 57 POC Glucose (mg/dL) 270 H Random Glucose 344 H Hemoglobin A1c Calcium 8.9 Phosphorus 4.2 Magnesium 1.8 Total Bilirubin 0.6 AST 27 ALT 18 Alkaline Phosphatase 103 Troponin I NT-Pro-B Natriuret Pep Total Protein 8.1 Albumin 3.9 Globulin 4.2 H Albumin/Globulin Ratio 0.9 L Arterial Blood Potassium Urine Color Yellow Urine Clarity Hazy Urine pH 5.0 Ur Specific [place] 1.030 Urine Protein 1+ H Urine Glucose (UA) 2+ H Urine Ketones Negative Urine Blood 2+ H Urine Nitrate Negative Urine Bilirubin Negative Urine Urobilinogen Normal Ur Leukocyte Esterase 2+ H Urine WBC (Auto) 32 H Urine RBC (Auto) 12 H Ur Squamous Epith Cells 7 H Urine Bacteria Occ H 02/28/17 02/28/17 11:33 16:15 WBC RBC Hgb Hct MCV MCH MCHC RDW Plt Count MPV Neut % (Auto) Lymph % (Auto) [place] % (Auto) Eos % (Auto) Baso % (Auto) Neut # Lymph # [place] # Eos # Baso # Neutrophils % (Manual) Lymphocytes % (Manual) Monocytes % (Manual) Platelet Estimate PT INR APTT Puncture Site pCO2 pO2 HCO3 ABG pH ABG Total CO2 ABG O2 Saturation ABG Base Excess Rob Test ABG Potassium A-a O2 Difference Respiratory Index Glucose Lactate Vent Mode FiO2 PEEP Pressure Support Sodium Potassium Chloride Carbon Dioxide Anion Gap BUN Creatinine Est GFR ( Amer) Est GFR (Non-Af Amer) POC Glucose (mg/dL) 326 H 301 H Random Glucose Hemoglobin A1c Calcium Phosphorus Magnesium Total Bilirubin AST ALT Alkaline Phosphatase Troponin I NT-Pro-B Natriuret Pep Total Protein Albumin Globulin Albumin/Globulin Ratio Arterial Blood Potassium Urine Color Urine Clarity Urine pH Ur Specific [place] Urine Protein Urine Glucose (UA) Urine Ketones Urine Blood Urine Nitrate Urine Bilirubin Urine Urobilinogen Ur Leukocyte Esterase Urine WBC (Auto) Urine RBC (Auto) Ur Squamous Epith Cells Urine Bacteria Assessment & Plan - Assessment and Plan (Free Text) Assessment: 61 year old female with history of COPD, chronic respiratory failure, tracheostomy who was admitted for worsening shortness of breath and cough. Pulmonary consulted on 02/27/17 to evaluate COPD exacerbation, Chronic respiratory failure Hx of sleep apnea Hx of tracheostomy Continue Albuterol/ipratropium 3cc INH R QID IV antibiotics - Aztreonam 2g IV - Clindamycin 600mg IV - Avelox 400mg IV Tessalon Perles 100mg TID Robitussin 200mg QID Solumedrol 125mg IV Q8 hours Singulair 10mg PO HS Culture and sensitivity for tracheal aspirate ordered. Blood cultures pending Urine culture pending 02/27/17: CXR No acute infiltrate. Limited examination? 02/28/17: CXR Patchy bilateral perihilar opacities. Tracheostomy tube. Afebrile WBC 11.9 CPAP settings: PSV 12 PEEP 5 on 2L at 30% FiO2 . Saturating at 93%
[2017-02-28] MEDS: (Lantus) Insulin Glargine, Recombinant SC SCH (23:05)
--- NOTE | 2017-03-01 | CP.PCM.HP ---
History of Present Illness - History of Present Illness History of Present Illness: Patient is a 61 year old morbidly obese female with history of COPD/emphysema, chronic respiratory failure, tracheostomy, bronchiectasis, sleep apnea who initially presented on 02/27/17 for complaints of worsening shortness of breath and cough productive of yellow sputum. While in the ED, she was placed on the vent trough the trach with some improvement. She received Duoneb with minimal improvement and was admitted to the ICU. While in the ICU she was placed on the vent through the trach collar. She was then switched to CPAP, tolerating it well , saturating at 93%. . Her shortness of breath is improved. She is able to expectorate well and does not have a lot of secretions. She also complains of epigastric and RUQ pain. PMH: anxiety, asthma, COPD, emphysema,bronchiectasis, sleep apnea, CHF, HTN, bipolar disorder, depression, seizures disorder PSH: appendectomy, cholecystectomy, tracheostomy Family hx: unknown Home Meds: see MAR Allergies: ASA, Ceftriaxone, Ibuprofen, Iodine, raspberry - anaphylaxis Present on Admission - Present on Admission Any Indicators Present on Admission: Yes Review of Systems - Review of Systems Systems not reviewed;Unavailable: Acuity of Condition - Constitutional Constitutional: Anorexia, Chills, Fatigue, Fever, Lethargy, Malaise, Snoring, Sleep Apnea. absent: As Per HPI, Daytime Sleepiness, Excessive Sweating, Frequent Falls, Headache, Increased Appetite, Night Sweats, Weight Gain, Weight Loss, Weakness, Other - EENT Eyes: absent: As Per HPI, Blind Spots, Blurred Vision, Change in Vision, Decreased Night Vision, Diplopia, Discharge, Dry Eye, Exophthalmos, Floaters, Irritation, Itchy Eyes, Loss of Peripheral Vision, Pain, Photophobia, Requires Corrective Lenses, Sees Flashes, Spots in Vision, Tunnel Vision, Other Visual Disturbances, Loss of Vision, Other - Cardiovascular Cardiovascular: Chest Pain, Irregular Heart Rhythm, Palpitations, Pedal Edema - Respiratory Respiratory: Cough, Dyspnea - Gastrointestinal Gastrointestinal: absent: As Per HPI, Abdominal Pain, Belching, Bloating, Change in Bowel Habits, Change in Stool Character, Coffee Ground Emesis, Constipation, Cramping, Diarrhea, Dyspepsia, Dysphagia, Early Satiety, Excessive Flatus, Fecal Incontinence, Heartburn, Hematemesis, Hematochezia, Loose Stools, Melena, Nausea, Odynophagia, Temesmus, Vomiting, Other - Genitourinary Genitourinary: absent: As Per HPI, Change in Urinary Stream, Difficulty Urinating, Dysuria, Flank Pain, Hematuria, Pyuria, Nocturia, Urinary Incontinence, Urinary Frequency, Urinary Hesitance, Urinary Urgency, Voiding Freq/Small Amts, Freq UTI, Hx Renal/Bladder Calculi, Hx /Renal Surgery, Bladder Distension, Other Past Patient History - Infectious Disease Hx of Infectious Diseases: None - Tetanus Immunizations Tetanus Immunization: Unknown - Past Medical History & Family History Past Medical History?: Yes - Past Social History Smoking Status: Unknown If Ever Smoked - CARDIAC Hx Congestive Heart Failure: Yes Hx Hypertension: Yes - PULMONARY Hx Respiratory Disorders: Yes Hx Asthma: Yes Hx Bronchitis: Yes Hx Chronic Obstructive Pulmonary Disease (COPD): Yes Hx Emphysema: Yes Hx Pneumonia: Yes Hx Sleep Apnea: Yes Other/Comment: trachestomy - NEUROLOGICAL Hx Seizures: Yes - HEENT Hx HEENT Problems: Yes Hx Cataracts: Yes - RENAL Hx Chronic Kidney Disease: No - ENDOCRINE/METABOLIC Hx Hypothyroidism: No - HEMATOLOGICAL/ONCOLOGICAL Hx Human Immunodeficiency Virus (HIV): No - INTEGUMENTARY Hx Dermatological Problems: No - MUSCULOSKELETAL/RHEUMATOLOGICAL Hx Arthritis: No Hx Falls: No Hx Rheumatoid Arthritis: No - GASTROINTESTINAL Hx Gastrointestinal Disorders: Yes Other/Comment: cholecystectomy - GENITOURINARY/GYNECOLOGICAL Hx Sexually Transmitted Disorders: No - PSYCHIATRIC Hx Anxiety: Yes Hx Bipolar Disorder: Yes Hx Depression: Yes Hx Substance Use: No - SURGICAL HISTORY Hx Appendectomy: Yes Hx Cholecystectomy: Yes - ANESTHESIA Hx Anesthesia: Yes Hx Anesthesia Reactions: No Hx Malignant Hyperthermia: No Meds Allergies/Adverse Reactions: Allergies Allergy/AdvReac Type Severity Reaction Status Date / Time aspirin Allergy ANAPHYLAXIS Verified 02/27/17 18:25 ceftriaxone sodium Allergy ANAPHYLAXIS Verified 02/27/17 18:25 [From Rocephin] ibuprofen [From Motrin] Allergy ANAPHYLAXIS Verified 02/27/17 18:25 iodine Allergy ANAPHYLAXIS Verified 02/27/17 18:25 raspberry Allergy ANAPHYLAXIS Verified 02/27/17 18:25 Physical Exam - Constitutional Appears: Chronically Ill - Head Exam Head Exam: ATRAUMATIC, NORMAL INSPECTION, NORMOCEPHALIC - Eye Exam Eye Exam: EOMI, Normal appearance, PERRL Pupil Exam: NORMAL ACCOMODATION, PERRL - Respiratory Exam Respiratory Exam: Decreased Breath Sounds, Rales, Rhonchi - Cardiovascular Exam Cardiovascular Exam: REGULAR RHYTHM - GI/Abdominal Exam GI & Abdominal Exam: Normal Bowel Sounds, Soft. absent: Tenderness Results - Vital Signs Recent Vital Signs: Last Vital Signs Temp 98.2 F 02/28/17 14:00 Pulse 94 H 02/28/17 19:00 Resp 20 02/28/17 19:00 BP 161/86 H 02/28/17 18:33 Pulse Ox 94 L 02/28/17 19:00 - Labs Result Diagrams: 02/28/17 06:15 02/28/17 06:17 Labs: Laboratory Results - last 24 hr 02/28/17 02/28/17 02/28/17 06:15 06:15 06:17 WBC 11.9 H RBC 4.37 Hgb 11.8 Hct 35.2 MCV 80.6 L MCH 26.9 L MCHC 33.4 RDW 16.2 H Plt Count 175 MPV 8.4 Neut % (Auto) 93.2 H Lymph % (Auto) 5.1 L [place] % (Auto) 1.5 Eos % (Auto) 0.0 Baso % (Auto) 0.2 Neut # 11.1 H Lymph # 0.6 L [place] # 0.2 Eos # 0.0 Baso # 0.0 Neutrophils % (Manual) 94 H Lymphocytes % (Manual) 5 L Monocytes % (Manual) 1 Platelet Estimate Normal Sodium 137 Potassium 4.8 Chloride 104 Carbon Dioxide 23 Anion Gap 14 BUN 28 H Creatinine 1.0 Est GFR ( Amer) > 60 Est GFR (Non-Af Amer) 57 POC Glucose (mg/dL) Random Glucose 344 H Hemoglobin A1c 8.7 H Calcium 8.9 Phosphorus 4.2 Magnesium 1.8 Total Bilirubin 0.6 AST 27 ALT 18 Alkaline Phosphatase 103 Total Protein 8.1 Albumin 3.9 Globulin 4.2 H Albumin/Globulin Ratio 0.9 L Urine Color Urine Clarity Urine pH Ur Specific [place] Urine Protein Urine Glucose (UA) Urine Ketones Urine Blood Urine Nitrate Urine Bilirubin Urine Urobilinogen Ur Leukocyte Esterase Urine WBC (Auto) Urine RBC (Auto) Ur Squamous Epith Cells Urine Bacteria 02/28/17 02/28/17 02/28/17 07:35 09:43 11:33 WBC RBC Hgb Hct MCV MCH MCHC RDW Plt Count MPV Neut % (Auto) Lymph % (Auto) [place] % (Auto) Eos % (Auto) Baso % (Auto) Neut # Lymph # [place] # Eos # Baso # Neutrophils % (Manual) Lymphocytes % (Manual) Monocytes % (Manual) Platelet Estimate Sodium Potassium Chloride Carbon Dioxide Anion Gap BUN Creatinine Est GFR ( Amer) Est GFR (Non-Af Amer) POC Glucose (mg/dL) 270 H 326 H Random Glucose Hemoglobin A1c Calcium Phosphorus Magnesium Total Bilirubin AST ALT Alkaline Phosphatase Total Protein Albumin Globulin Albumin/Globulin Ratio Urine Color Yellow Urine Clarity Hazy Urine pH 5.0 Ur Specific [place] 1.030 Urine Protein 1+ H Urine Glucose (UA) 2+ H Urine Ketones Negative Urine Blood 2+ H Urine Nitrate Negative Urine Bilirubin Negative Urine Urobilinogen Normal Ur Leukocyte Esterase 2+ H Urine WBC (Auto) 32 H Urine RBC (Auto) 12 H Ur Squamous Epith Cells 7 H Urine Bacteria Occ H 02/28/17 02/28/17 16:15 21:09 WBC RBC Hgb Hct MCV MCH MCHC RDW Plt Count MPV Neut % (Auto) Lymph % (Auto) [place] % (Auto) Eos % (Auto) Baso % (Auto) Neut # Lymph # [place] # Eos # Baso # Neutrophils % (Manual) Lymphocytes % (Manual) Monocytes % (Manual) Platelet Estimate Sodium Potassium Chloride Carbon Dioxide Anion Gap BUN Creatinine Est GFR ( Amer) Est GFR (Non-Af Amer) POC Glucose (mg/dL) 301 H 384 H Random Glucose Hemoglobin A1c Calcium Phosphorus Magnesium Total Bilirubin AST ALT Alkaline Phosphatase Total Protein Albumin Globulin Albumin/Globulin Ratio Urine Color Urine Clarity Urine pH Ur Specific [place] Urine Protein Urine Glucose (UA) Urine Ketones Urine Blood Urine Nitrate Urine Bilirubin Urine Urobilinogen Ur Leukocyte Esterase Urine WBC (Auto) Urine RBC (Auto) Ur Squamous Epith Cells Urine Bacteria Assessment & Plan (1) Pneumonia Status: Acute (2) Respiratory distress Status: Acute (3) Tracheostomy present Status: Acute (4) COPD exacerbation Status: Acute (5) Ventilator dependent Status: Acute (6) Diabetes mellitus Status: Chronic (7) HTN (hypertension) Status: Chronic
[2017-03-01] MEDS: Aztreonam 2 GM in Sodium Chloride 0.9% 100 ML IVPB SCH ×3 (04:48→20:59)
[2017-03-01] MEDS: Albuterol-Ipratrop 3 mg / 0.5 (3 ml) UD INH SCH ×4 (07:20→19:28)
[2017-03-01] MEDS: (Novolin R) Insulin Human Regular 100 units/ml vial SC SCH ×4 (08:34→21:28)
[2017-03-01] MEDS: Pantoprazole 40 mg Susp UD PO SCH (09:02)
[2017-03-01] MEDS: guaiFENesin 200 mg/10 ml Syrup UD PO SCH ×4 (09:02→21:25)
[2017-03-01] MEDS: Enoxaparin 60 mg Syringe SC SCH (09:04)
[2017-03-01] MEDS: Oxycodone/Acetaminophen 5/325 mg Tab PO PRN ×2 (13:23→23:21)
[2017-03-01] MEDS: (Lantus) Insulin Glargine, Recombinant SC SCH (21:40)
[2017-03-01] MEDS: Moxifloxacin IV 400mg/250ml NS 400 MG/250 ML BAG IVPB SCH (22:03)
--- NOTE | 2017-03-01 23:17 | CP.PCM.PN ---
Subjective - Date & Time of Evaluation Date of Evaluation: 03/01/17 Time of Evaluation: 18:00 - Subjective Subjective: Pt seen and evaluated, in ICU, on medical managment, no N/V on antibiotics Objective - Vital Signs/Intake and Output Vital Signs (last 24 hours): Temp Pulse Resp BP Pulse Ox 98.4 F 78 20 150/79 99 03/01/17 15:00 03/01/17 18:33 03/01/17 18:33 03/01/17 18:33 03/01/17 18:00 Intake and Output: 03/01/17 03/02/17 18:59 06:59 Intake Total 360 Output Total 550 Balance -190 - Medications Medications: Current Medications Albuterol/Ipratropium (Duoneb 3 Mg/0.5 Mg (3 Ml) Ud) 3 ml INH RQID [facility] Last Admin: 03/01/17 19:28 Dose: 3 ml Benzonatate (Tessalon Perles) 100 mg PO TID [facility] Last Admin: 03/01/17 17:06 Dose: 100 mg Enoxaparin Sodium (Lovenox) 40 mg SC DAILY [facility] Last Admin: 03/01/17 09:04 Dose: 40 mg Gabapentin (Neurontin) 800 mg PO TID [facility] Last Admin: 03/01/17 17:06 Dose: 800 mg Guaifenesin (Robitussin) 200 mg PO QID [facility] Last Admin: 03/01/17 21:25 Dose: 200 mg Clindamycin Phosphate 600 mg/ (Sodium Chloride) 54 mls @ 100 mls/hr IVPB Q6H [facility] Last Admin: 03/01/17 20:51 Dose: 100 mls/hr Moxifloxacin HCl (Avelox Iv 400mg/250ml Ns) 400 mg in 250 mls @ 167 mls/hr IVPB Q24H [facility] Last Admin: 03/01/17 22:03 Dose: 167 mls/hr Aztreonam 2 gm/ Sodium (Chloride) 100 mls @ 200 mls/hr IVPB Q8H [facility] Last Admin: 03/01/17 20:59 Dose: 200 mls/hr Insulin Glargine (Lantus) 30 unit SC HS [facility] Last Admin: 03/01/17 21:40 Dose: 30 units Insulin Human Regular (Novolin R) 0 unit SC ACHS [facility] PRN Reason: Protocol Last Admin: 03/01/17 21:28 Dose: 2 unit Lamotrigine (Lamictal) 100 mg PO Q12H [facility] Last Admin: 03/01/17 21:46 Dose: 100 mg Lorazepam (Ativan) 2 mg PO TID PRN PRN Reason: Anxiety Methylprednisolone (Solu-Medrol) 125 mg IVP Q8H [facility] Last Admin: 03/01/17 20:51 Dose: 125 mg Montelukast Sodium (Singulair) 10 mg PO [facility] Last Admin: 03/01/17 21:25 Dose: 10 mg Oxycodone/Acetaminophen (Percocet 5/325 Mg Tab) 1 tab PO Q4H PRN PRN Reason: Pain, moderate (4-7) Stop: 03/02/17 22:37 Last Admin: 03/01/17 13:23 Dose: 1 tab Pantoprazole Sodium (Protonix Susp) 40 mg PO DAILY [facility] Last Admin: 03/01/17 09:02 Dose: 40 mg Quetiapine Fumarate (Seroquel) 400 mg PO Q12H [facility] Last Admin: 03/01/17 21:46 Dose: 400 mg Rosuvastatin Calcium (Crestor) 5 mg PO [facility] Last Admin: 03/01/17 21:30 Dose: 5 mg Sertraline HCl (Zoloft) 100 mg PO [facility] Last Admin: 03/01/17 21:23 Dose: 100 mg Trazodone HCl (Desyrel) 150 mg PO [facility] Last Admin: 03/01/17 21:52 Dose: 150 mg - Labs Labs: 02/28/17 06:15 02/28/17 06:17 PT 12.0 SECONDS (9.7-12.2) 02/27/17 18:40 INR 1.1 02/27/17 18:40 APTT 33 SECONDS (21-34) 02/27/17 18:40 - Constitutional Appears: No Acute Distress, Chronically Ill - Head Exam Head Exam: ATRAUMATIC, NORMAL INSPECTION, NORMOCEPHALIC - Eye Exam Eye Exam: EOMI, Normal appearance, PERRL Pupil Exam: NORMAL ACCOMODATION, PERRL - Respiratory Exam Respiratory Exam: Clear to Ausculation Bilateral, NORMAL BREATHING PATTERN - Cardiovascular Exam Cardiovascular Exam: REGULAR RHYTHM, +S1, +S2. absent: Murmur - GI/Abdominal Exam GI & Abdominal Exam: Soft, Normal Bowel Sounds. absent: Tenderness Assessment and Plan (1) Pneumonia Status: Acute (2) Respiratory distress Status: Acute (3) Tracheostomy present Status: Acute (4) COPD exacerbation Status: Acute (5) Ventilator dependent Status: Acute (6) Diabetes mellitus Status: Chronic (7) HTN (hypertension) Status: Chronic
[2017-03-02] MEDS: Aztreonam 2 GM in Sodium Chloride 0.9% 100 ML IVPB SCH ×3 (04:13→20:31)
[2017-03-02 06:15] LABS: BASO % 0.1 % (0.0-2.0); HEMOGLOBIN 11.1 g/dL (11.0-16.0); LYMPH # 0.8 K/uL (1.0-4.3); MEAN CELL VOLUME 80.9 fL (81.0-99.0); MEAN CORPUSCULAR HEMOGLOBIN 27.1 pg (27.0-31.0); MEAN CORPUSCULAR HGB CONC 33.5 g/dL (33.0-37.0); MEAN PLATELET VOLUME 8.3 fL (7.2-11.7); MONO # 0.3 K/uL (0.0-0.8); MONO % 2.5 % (0.0-10.0); NEUT % 91.4 % (50.0-75.0); PLATELET COUNT 172 K/uL (130-400); RBC 4.11 Mil/uL (3.80-5.20); RED CELL DISTRIBUTION WIDTH 16.3 % (11.5-14.5); WHITE BLOOD COUNT 13.2 K/uL (4.8-10.8)
[2017-03-02 06:42] LABS: ALBUMIN 3.8 g/dL (3.5-5.0); ALT/SGPT 16 U/L (9-52); AST/SGOT 48 U/L (14-36); BLOOD UREA NITROGEN 35 mg/dL (7-17); CALCIUM 8.7 mg/dl (8.6-10.4); GFR AFRICAN-AMERICAN > 60; GFR NON-AFRICAN AMERICAN 57
--- NOTE | 2017-03-02 07:02 | CARD ---
APPROVED REPORT EKG Measurement Heart [id number] <Conclusion> Sinus tachycardia Septal infarct, age undetermined Abnormal ECG
[2017-03-02] MEDS: Albuterol-Ipratrop 3 mg / 0.5 (3 ml) UD INH SCH ×4 (07:14→20:06)
[2017-03-02 08:41] LABS: ANISOCYTOSIS SLIGHT; BANDS 1 % (0-2); HYPOCHROMIC SLIGHT; LYMPHOCYTE 7 % (20-40); MONOCYTE 3 % (0-10); NEUTROPHIL 89 % (50-75); PLATELET ESTIMATE NORMAL (NORMAL); POIKILOCYTOSIS SLIGHT; TEARDROP CELLS SLIGHT; TOTAL CELLS COUNTED 100
[2017-03-02 08:42] LABS: TOXIC GRANULATION PRESENT
[2017-03-02] MEDS: (Novolin R) Insulin Human Regular 100 units/ml vial SC SCH ×4 (09:01→21:21)
[2017-03-02] MEDS: Enoxaparin 60 mg Syringe SC SCH (09:02)
[2017-03-02] MEDS: Pantoprazole 40 mg Susp UD PO SCH (10:39)
[2017-03-02] MEDS: guaiFENesin 200 mg/10 ml Syrup UD PO SCH ×4 (10:39→21:03)
[2017-03-02] MEDS: Oxycodone/Acetaminophen 5/325 mg Tab PO PRN ×2 (12:05→19:35)
--- NOTE | 2017-03-02 13:09 | CP.PCM.PN ---
Subjective - Date & Time of Evaluation Date of Evaluation: 03/02/17 Time of Evaluation: 10:40 - Subjective Subjective: Patient seen and examined at bedside. She complains persistent right sided lower chest pain. As per nurse, she has a lot of secretions but she has also been able to expectorate well. Assessment 61 year old female with history of COPD, chronic respiratory failure, tracheostomy who was admitted for worsening shortness of breath and cough. Pulmonary consulted on 02/27/17 to evaluate. COPD exacerbation, Chronic respiratory failure Hx of sleep apnea Hx of tracheostomy Tolerating CPAP well Consider switching to trach collar Continue present treatment Albuterol/ipratropium 3cc INH R QID IV antibiotics - Aztreonam 2g IV - Clindamycin 600mg IV - Avelox 400mg IV Tessalon Perles 100mg TID Robitussin 200mg QID Solumedrol 125mg IV Q8 hours Singulair 10mg PO HS Objective - Vital Signs/Intake and Output Vital Signs (last 24 hours): Temp Pulse Resp BP Pulse Ox 97.9 F 67 18 131/76 96 03/02/17 00:00 03/02/17 00:00 03/02/17 00:00 03/02/17 00:00 03/02/17 00:00 Intake and Output: 03/02/17 03/02/17 06:59 18:59 Intake Total 600 530 Output Total 600 800 Balance 0 -270 - Medications Medications: Current Medications Albuterol/Ipratropium (Duoneb 3 Mg/0.5 Mg (3 Ml) Ud) 3 ml INH RQID [facility] Last Admin: 03/02/17 11:03 Dose: 3 ml Benzonatate (Tessalon Perles) 100 mg PO TID [facility] Last Admin: 03/02/17 10:40 Dose: 100 mg Enoxaparin Sodium (Lovenox) 40 mg SC DAILY [facility] Last Admin: 03/02/17 09:02 Dose: 40 mg Gabapentin (Neurontin) 800 mg PO TID [facility] Last Admin: 03/02/17 10:39 Dose: 800 mg Guaifenesin (Robitussin) 200 mg PO QID [facility] Last Admin: 03/02/17 10:39 Dose: 200 mg Clindamycin Phosphate 600 mg/ (Sodium Chloride) 54 mls @ 100 mls/hr IVPB Q6H [facility] Last Admin: 03/02/17 09:02 Dose: 100 mls/hr Moxifloxacin HCl (Avelox Iv 400mg/250ml Ns) 400 mg in 250 mls @ 167 mls/hr IVPB Q24H [facility] Last Admin: 03/01/17 22:03 Dose: 167 mls/hr Aztreonam 2 gm/ Sodium (Chloride) 100 mls @ 200 mls/hr IVPB Q8H [facility] Last Admin: 03/02/17 04:13 Dose: 200 mls/hr Insulin Glargine (Lantus) 30 unit SC [facility] Last Admin: 03/01/17 21:40 Dose: 30 units Insulin Human Regular (Novolin R) [address] [facility] PRN Reason: Protocol Last Admin: 03/02/17 12:04 Dose: 4 unit Lamotrigine (Lamictal) 100 mg PO Q12H [facility] Last Admin: 03/02/17 10:38 Dose: 100 mg Lorazepam (Ativan) 2 mg PO TID PRN PRN Reason: Anxiety Methylprednisolone (Solu-Medrol) 125 mg IVP Q8H [facility] Last Admin: 03/02/17 04:15 Dose: 125 mg Montelukast Sodium (Singulair) 10 mg PO [facility] Last Admin: 03/01/17 21:25 Dose: 10 mg Oxycodone/Acetaminophen (Percocet 5/325 Mg Tab) 1 tab PO Q4H PRN PRN Reason: Pain, moderate (4-7) Stop: 03/02/17 22:37 Last Admin: 03/02/17 12:05 Dose: 1 tab Pantoprazole Sodium (Protonix Susp) 40 mg PO DAILY [facility] Last Admin: 03/02/17 10:39 Dose: 40 mg Quetiapine Fumarate (Seroquel) 400 mg PO Q12H [facility] Last Admin: 03/02/17 10:39 Dose: 400 mg Rosuvastatin Calcium (Crestor) 5 mg PO [facility] Last Admin: 03/01/17 21:30 Dose: 5 mg Sertraline HCl (Zoloft) 100 mg PO [facility] Last Admin: 03/01/17 21:23 Dose: 100 mg Trazodone HCl (Desyrel) 150 mg PO [facility] Last Admin: 03/01/17 21:52 Dose: 150 mg - Labs Labs: 03/02/17 06:06 03/02/17 06:06 PT 12.0 SECONDS (9.7-12.2) 02/27/17 18:40 INR 1.1 02/27/17 18:40 APTT 33 SECONDS (21-34) 02/27/17 18:40
[2017-03-02] MEDS: (Lantus) Insulin Glargine, Recombinant SC SCH (21:01)
[2017-03-02] MEDS: Moxifloxacin IV 400mg/250ml NS 400 MG/250 ML BAG IVPB SCH (21:59)
--- NOTE | 2017-03-02 23:02 | CP.PCM.PN ---
Subjective - Date & Time of Evaluation Date of Evaluation: 03/02/17 Time of Evaluation: 18:15 Objective - Vital Signs/Intake and Output Vital Signs (last 24 hours): Temp Pulse Resp BP Pulse Ox 98.6 F 67 18 131/76 96 03/02/17 22:00 03/02/17 00:00 03/02/17 00:00 03/02/17 00:00 03/02/17 00:00 Intake and Output: 03/02/17 03/03/17 18:59 06:59 Intake Total 530 Output Total 800 Balance -270 - Medications Medications: Current Medications Albuterol/Ipratropium (Duoneb 3 Mg/0.5 Mg (3 Ml) Ud) 3 ml INH RQID [facility] Last Admin: 03/02/17 20:06 Dose: 3 ml Benzonatate (Tessalon Perles) 100 mg PO TID [facility] Last Admin: 03/02/17 17:10 Dose: 100 mg Docusate Sodium (Colace) 100 mg PO TID [facility] Last Admin: 03/02/17 17:10 Dose: 100 mg Enoxaparin Sodium (Lovenox) 40 mg SC DAILY [facility] Gabapentin (Neurontin) 800 mg PO TID [facility] Last Admin: 03/02/17 17:10 Dose: 800 mg Guaifenesin (Robitussin) 200 mg PO QID [facility] Last Admin: 03/02/17 21:03 Dose: 200 mg Clindamycin Phosphate 600 mg/ (Sodium Chloride) 54 mls @ 100 mls/hr IVPB Q6H [facility] Last Admin: 03/02/17 20:32 Dose: 100 mls/hr Moxifloxacin HCl (Avelox Iv 400mg/250ml Ns) 400 mg in 250 mls @ 167 mls/hr IVPB Q24H [facility] Last Admin: 03/02/17 21:59 Dose: 167 mls/hr Aztreonam 2 gm/ Sodium (Chloride) 100 mls @ 200 mls/hr IVPB Q8H [facility] Last Admin: 03/02/17 20:31 Dose: 200 mls/hr Insulin Glargine (Lantus) 30 unit SC [facility] Last Admin: 03/02/17 21:01 Dose: 30 units Insulin Human Regular (Novolin R) 0 unit SC [facility] PRN Reason: Protocol Last Admin: 03/02/17 21:21 Dose: 4 unit Lamotrigine (Lamictal) 100 mg PO Q12H [facility] Last Admin: 03/02/17 21:58 Dose: 100 mg Lorazepam (Ativan) 2 mg PO BID PRN PRN Reason: Anxiety Methylprednisolone (Solu-Medrol) 125 mg IVP Q8H [facility] Last Admin: 03/02/17 20:35 Dose: 125 mg Montelukast Sodium (Singulair) 10 mg PO [facility] Last Admin: 03/02/17 21:04 Dose: 10 mg Pantoprazole Sodium (Protonix Susp) 40 mg PO DAILY [facility] Last Admin: 03/02/17 10:39 Dose: 40 mg Quetiapine Fumarate (Seroquel) 400 mg PO Q12H [facility] Last Admin: 03/02/17 21:59 Dose: 400 mg Rosuvastatin Calcium (Crestor) 5 mg PO [facility] Last Admin: 03/02/17 21:10 Dose: 5 mg Sertraline HCl (Zoloft) 100 mg PO Q12H [facility] Last Admin: 03/02/17 22:03 Dose: 100 mg Trazodone HCl (Desyrel) 150 mg PO [facility] Last Admin: 03/02/17 21:07 Dose: 150 mg - Labs Labs: 03/02/17 06:06 03/02/17 06:06 PT 12.0 SECONDS (9.7-12.2) 02/27/17 18:40 INR 1.1 02/27/17 18:40 APTT 33 SECONDS (21-34) 02/27/17 18:40 Assessment and Plan (1) Pneumonia Status: Acute (2) Respiratory distress Status: Acute (3) Tracheostomy present Status: Acute (4) COPD exacerbation Status: Acute (5) Ventilator dependent Status: Acute (6) Diabetes mellitus Status: Chronic (7) HTN (hypertension) Status: Chronic
--- NOTE | 2017-03-03 02:24 | CON ---
DATE: 03/02/2017 PSYCHIATRIC CONSULTATION CHIEF COMPLAINT AND REASON FOR CONSULTATION: Patient is referred by Dr. Khan for evaluation and co-management of patient's long history of psych illness. Patient has schizoaffective disorder. HISTORY OF PRESENT ILLNESS: This is a case of a 61-year-old female who is well known to me through the years. Patient has history of schizoaffective disorder as well as multiple medical problems. Patient was admitted here for increasing respiratory distress and diagnosed to have pneumonia. Patient has history of COPD as well as respiratory failure in the past. Patient is currently in the ICU and referred for management as patient is taking multiple psych meds. Patient has been followed by me for consults in the past and takes the following medications: Patient is on Ativan which she takes at home 2 mg two times a day as needed, patient is on trazodone 150 mg, patient is on Lamictal 100 mg twice a day, patient is on Neurontin 800 mg three times a day, Seroquel 400 mg twice a day, and Zoloft which she is taking 100 mg twice a day; and the patient is on Lamictal 100 mg p.o. b.i.d., she has been compliant with that for years. PAST PSYCHIATRIC HISTORY: She has been admitted numerous times for depression, history of suicidal attempts in the past, history of insomnia. ALLERGIES: PATIENT IS ALLERGIC TO ASPIRIN, ROCEPHIN, MOTRIN, IODINE, AND RASPBERRY. DRUG AND ALCOHOL HISTORY: Denies any. PSYCHOSOCIAL HISTORY: Patient lives with one daughter, Toshia. She is disabled secondary to psych problems as well as patient is disabled due to her psych illness. MEDICATIONS: List of current medications include; Ativan 2 mg t.i.d., p.r.n., patient is on Avelox, aztreonam, clindamycin, trazodone 150 mg daily, Crestor, Colace, Lamictal 100 mg q. 12, R insulin, Lovenox, Neurontin 800 mg three times a day, Novolin R, Percocet, Seroquel 400 mg twice a day, patient is on Singulair, Solu-Medrol, Zoloft 100 mg daily at nighttime. PHYSICAL EXAMINATION: VITAL SIGNS: Temperature is 98.2, pulse rate is 67, respiration is 18. Patient has a trach, oxygen saturation is 96%. Patient is currently admitted to ICU, bed number 18. REVIEW OF SYSTEMS: GENERAL: Patient is more alert, verbal, has a trach, able to speak in whispers, she was eating. Patient is doing much better. She is not in acute respiratory distress. Able to communicate her medication well. SKIN: No diaphoresis. HEENT: Denied headache or dizziness. NECK: She has a trach. RESPIRATORY: No dyspnea. CARDIOVASCULAR: No chest pain. GASTROINTESTINAL: Continues to have good appetite. No nausea or vomiting. EXTREMITIES: Not complaining of pain. MUSCULOSKELETAL: Feels weak. NEUROLOGIC: Alert and oriented x3. GENITOURINARY: No dysuria. MENTAL STATUS EXAMINATION: An obese female who is 5 feet, 276 pounds with long history of schizoaffective disorder and chronic insomnia. Mood is calmer. Affect is reactive. Speech is daze. Thought process coherent. Thought content: No overt psychosis, although patient has history of chronic intermittent hallucinations. No paranoia. No suicidal thought or ideation. Attention and memory seem to be fair. Insight and judgement fair. Impulse control is fair. IMPRESSION: History of schizoaffective disorder as well as history of pneumonia, history of chronic obstructive pulmonary disease. ADDENDUM: For her medical problems: Patient has multiple medical problems. Patient has history of obesity, history of diabetes, hypertension, chronic back pain, sepsis, patient has history of chronic obstructive pulmonary disease, history of asthma, history of respiratory failure in the past status post trach placement. PLAN AND RECOMMENDATION: Patient is seen and meds reviewed. We will change her Ativan to 2 mg b.i.d. p.r.n. instead of 2 mg t.i.d. p.r.n. Continue antibiotics as ordered. We will continue the trazodone 150 mg at bedtime, Lamictal 100 mg p.o. twice a day, Neurontin 800 mg t.i.d., then Seroquel 400 mg twice a day, and then we will change the Zoloft to 100 mg q.12 instead of 100 mg at bedtime. Continue treatment plan as outlined. Psych de la cruz, patient seems to be stable. Patient is not having any hallucinations when seen. Mood seems to be brighter and improving clinically with her pneumonia. Wellington Dejesus MD [facility] # [id number]
[2017-03-03] MEDS: Aztreonam 2 GM in Sodium Chloride 0.9% 100 ML IVPB SCH ×2 (04:50→14:00)
[2017-03-03] MEDS: Albuterol-Ipratrop 3 mg / 0.5 (3 ml) UD INH SCH ×4 (07:48→19:22)
[2017-03-03] MEDS: (Novolin R) Insulin Human Regular 100 units/ml vial SC SCH ×4 (08:38→22:32)
[2017-03-03] MEDS: Pantoprazole 40 mg Susp UD PO SCH (10:33)
[2017-03-03] MEDS: Enoxaparin 40 mg Syringe SC SCH (10:34)
[2017-03-03] MEDS: guaiFENesin 200 mg/10 ml Syrup UD PO SCH ×4 (10:37→22:42)
[2017-03-03] MEDS: MethylPREDNISolone 40 mg Vial IVP SCH ×2 (15:22→22:48)
--- NOTE | 2017-03-03 22:10 | CP.PCM.PN ---
Subjective - Date & Time of Evaluation Date of Evaluation: 03/03/17 Time of Evaluation: 19:20 Objective - Vital Signs/Intake and Output Vital Signs (last 24 hours): Temp Pulse Resp BP Pulse Ox 98.2 F 78 25 H 116/74 94 L 03/03/17 20:15 03/03/17 20:42 03/03/17 20:15 03/03/17 20:15 03/03/17 20:15 Intake and Output: 03/03/17 03/04/17 18:59 06:59 Intake Total 330 Balance 330 - Medications Medications: Current Medications Albuterol/Ipratropium (Duoneb 3 Mg/0.5 Mg (3 Ml) Ud) 3 ml INH RQID [facility] Last Admin: 03/03/17 19:22 Dose: 3 ml Benzonatate (Tessalon Perles) 100 mg PO TID [facility] Last Admin: 03/03/17 17:52 Dose: 100 mg Docusate Sodium (Colace) 100 mg PO TID [facility] Last Admin: 03/03/17 17:52 Dose: 100 mg Enoxaparin Sodium (Lovenox) 40 mg SC DAILY [facility] Last Admin: 03/03/17 10:34 Dose: 40 mg Gabapentin (Neurontin) 800 mg PO TID [facility] Last Admin: 03/03/17 17:52 Dose: 800 mg Guaifenesin (Robitussin) 200 mg PO QID [facility] Last Admin: 03/03/17 15:21 Dose: 200 mg Moxifloxacin HCl (Avelox Iv 400mg/250ml Ns) 400 mg in 250 mls @ 167 mls/hr IVPB Q24H [facility] Last Admin: 03/02/17 21:59 Dose: 167 mls/hr Insulin Glargine (Lantus) 30 unit SC HS [facility] Last Admin: 03/02/17 21:01 Dose: 30 units Insulin Human Regular (Novolin R) 0 unit SC [facility] PRN Reason: Protocol Last Admin: 03/03/17 17:50 Dose: 6 unit Lamotrigine (Lamictal) 100 mg PO Q12H [facility] Last Admin: 03/03/17 10:36 Dose: 100 mg Lorazepam (Ativan) 2 mg PO BID PRN PRN Reason: Anxiety Last Admin: 03/03/17 11:00 Dose: 2 mg Methylprednisolone (Solu-Medrol) 60 mg IVP Q8H [facility] Last Admin: 03/03/17 15:22 Dose: Not Given Montelukast Sodium (Singulair) 10 mg PO [facility] Last Admin: 03/02/17 21:04 Dose: 10 mg Pantoprazole Sodium (Protonix Susp) 40 mg PO DAILY [facility] Last Admin: 03/03/17 10:33 Dose: 40 mg Quetiapine Fumarate (Seroquel) 400 mg PO Q12H [facility] Last Admin: 03/03/17 10:35 Dose: 400 mg Rosuvastatin Calcium (Crestor) 5 mg PO [facility] Last Admin: 03/02/17 21:10 Dose: 5 mg Sertraline HCl (Zoloft) 100 mg PO Q12H [facility] Last Admin: 03/03/17 10:33 Dose: 100 mg Trazodone HCl (Desyrel) 150 mg PO [facility] Last Admin: 03/02/17 21:07 Dose: 150 mg - Labs Labs: 03/02/17 06:06 03/02/17 06:06 PT 12.0 SECONDS (9.7-12.2) 02/27/17 18:40 INR 1.1 02/27/17 18:40 APTT 33 SECONDS (21-34) 02/27/17 18:40 Assessment and Plan (1) Pneumonia Status: Acute (2) Respiratory distress Status: Acute (3) Tracheostomy present Status: Acute (4) COPD exacerbation Status: Acute (5) Ventilator dependent Status: Acute (6) Diabetes mellitus Status: Chronic (7) HTN (hypertension) Status: Chronic
[2017-03-03] MEDS: (Lantus) Insulin Glargine, Recombinant SC SCH (22:33)
[2017-03-03] MEDS: Moxifloxacin IV 400mg/250ml NS 400 MG/250 ML BAG IVPB SCH (22:48)
[2017-03-04] MEDS: MethylPREDNISolone 40 mg Vial IVP SCH ×3 (05:41→22:28)
[2017-03-04] MEDS: Albuterol-Ipratrop 3 mg / 0.5 (3 ml) UD INH SCH ×4 (07:40→19:09)
[2017-03-04] MEDS: (Novolin R) Insulin Human Regular 100 units/ml vial SC SCH ×4 (08:13→22:00)
[2017-03-04] MEDS: guaiFENesin 200 mg/10 ml Syrup UD PO SCH ×4 (09:29→22:30)
[2017-03-04] MEDS: Pantoprazole 40 mg Susp UD PO SCH (09:29)
[2017-03-04] MEDS: Enoxaparin 40 mg Syringe SC SCH (09:29)
--- NOTE | 2017-03-04 17:25 | CP.PCM.PN ---
Objective - Vital Signs/Intake and Output Vital Signs (last 24 hours): Temp Pulse Resp BP Pulse Ox 98.2 F 63 18 130/68 95 03/04/17 15:30 03/04/17 17:03 03/04/17 15:30 03/04/17 15:30 03/04/17 15:30 Intake and Output: 03/04/17 03/04/17 06:59 18:59 Intake Total 490 333 Output Total 0 Balance 490 333 - Medications Medications: Current Medications Albuterol/Ipratropium (Duoneb 3 Mg/0.5 Mg (3 Ml) Ud) 3 ml INH RQID [facility] Last Admin: 03/04/17 15:41 Dose: 3 ml Benzonatate (Tessalon Perles) 100 mg PO TID [facility] Last Admin: 03/04/17 17:18 Dose: 100 mg Docusate Sodium (Colace) 100 mg PO TID [facility] Last Admin: 03/04/17 17:18 Dose: 100 mg Enoxaparin Sodium (Lovenox) 40 mg SC DAILY [facility] Last Admin: 03/04/17 09:29 Dose: 40 mg Gabapentin (Neurontin) 800 mg PO TID [facility] Last Admin: 03/04/17 17:18 Dose: 800 mg Guaifenesin (Robitussin) 200 mg PO QID [facility] Last Admin: 03/04/17 17:18 Dose: 200 mg Insulin Glargine (Lantus) 30 unit SC [facility] Last Admin: 03/03/17 22:33 Dose: 30 units Insulin Human Regular (Novolin R) 0 unit SC [facility] PRN Reason: Protocol Last Admin: 03/04/17 17:17 Dose: 2 unit Lamotrigine (Lamictal) 100 mg PO Q12H [facility] Last Admin: 03/04/17 10:56 Dose: 100 mg Lorazepam (Ativan) 2 mg PO BID PRN PRN Reason: Anxiety Last Admin: 03/03/17 11:00 Dose: 2 mg Methylprednisolone (Solu-Medrol) 60 mg IVP Q8H [facility] Last Admin: 03/04/17 14:01 Dose: 60 mg Montelukast Sodium (Singulair) 10 mg PO HS [facility] Last Admin: 03/03/17 22:38 Dose: 10 mg Moxifloxacin HCl (Avelox) 400 mg PO Q24H [facility] Pantoprazole Sodium (Protonix Susp) 40 mg PO DAILY [facility] Last Admin: 03/04/17 09:29 Dose: 40 mg Quetiapine Fumarate (Seroquel) 400 mg PO Q12H [facility] Last Admin: 03/04/17 10:56 Dose: 400 mg Rosuvastatin Calcium (Crestor) 5 mg PO [facility] Last Admin: 03/03/17 22:35 Dose: 5 mg Sertraline HCl (Zoloft) 100 mg PO Q12H [facility] Last Admin: 03/04/17 09:34 Dose: 100 mg Trazodone HCl (Desyrel) 150 mg PO [facility] Last Admin: 03/03/17 22:35 Dose: 150 mg - Labs Labs: 03/02/17 06:06 03/02/17 06:06 PT 12.0 SECONDS (9.7-12.2) 02/27/17 18:40 INR 1.1 02/27/17 18:40 APTT 33 SECONDS (21-34) 02/27/17 18:40
[2017-03-04] MEDS: (Lantus) Insulin Glargine, Recombinant SC SCH (22:28)
[2017-03-05] MEDS: MethylPREDNISolone 40 mg Vial IVP SCH ×3 (05:39→22:39)
[2017-03-05] MEDS: Albuterol-Ipratrop 3 mg / 0.5 (3 ml) UD INH SCH ×3 (07:00→21:03)
[2017-03-05] MEDS: (Novolin R) Insulin Human Regular 100 units/ml vial SC SCH ×4 (08:10→22:33)
[2017-03-05] MEDS: Pantoprazole 40 mg Susp UD PO SCH (10:06)
[2017-03-05] MEDS: Enoxaparin 40 mg Syringe SC SCH (10:06)
[2017-03-05] MEDS: guaiFENesin 200 mg/10 ml Syrup UD PO SCH ×4 (10:06→22:36)
--- NOTE | 2017-03-05 16:03 | PN ---
DATE: SUBJECTIVE: The patient is doing better, resting comfortably in her bed #18 in the ICU. Psych-de la cruz, she is stable, has been complaint with meds. Reports no paranoia or hallucinations. She states she is sleeping better. Patient awaiting medical clearance to go to the regular floor. PHYSICAL EXAMINATION VITAL SIGNS: Temperature 98.2, pulse is 65, blood pressure 147/79, respirations 16, oxygen saturation is 94%. Patient has trach collar. REVIEW OF SYSTEMS: GENERAL: Patient is sleepy, but arousable in her room, resting, not in acute respiratory distress. SKIN: No diaphoresis. HEENT: No headache or dizziness. NECK: She has a trach collar. CARDIOVASCULAR: No chest pain. RESPIRATORY: No dyspnea. GASTROINTESTINAL: She has good appetite. EXTREMITIES: Patient moving extremities. MUSCULOSKELETAL: Feels weak. NEUROLOGIC: Alert and oriented x3. GENITOURINARY: No dysuria. MENTAL STATUS: An obese female who is about 5 feet, weight 276 pounds, oriented x3, resting comfortably. Mood is calm. Affect is reactive. Speech is daze. Thought process coherent. Thought content, no psychosis. No suicidal thought or ideation. Attention and memory seem to be fair. Insight and judgement fair. Impulse control is fair. IMPRESSION: History of pneumonia, chronic obstructive pulmonary disease, respiratory failure, schizoaffective disorder bipolar type, stable psych-de la cruz. PLAN AND RECOMMENDATION: Patient is seen and meds reviewed. Continue present psych meds. Continue treatment plan as outlined. Psych-de la cruz patient is at baseline. Wellington Dejesus MD [facility]
--- NOTE | 2017-03-05 18:08 | CP.PCM.PN ---
Subjective - Date & Time of Evaluation Date of Evaluation: 03/05/17 Time of Evaluation: 12:00 - Subjective Subjective: Patient seen and examined at bedside. She states her shortness of breath has improved a lot. She complains she has a persistent cough with secretions that need to be suctioned 4 to 6 times a day. Currently tolerating trach collar well with O2 sat in mid 90s. Assessment and plan 61 year old female with history of COPD, chronic respiratory failure, tracheostomy who was admitted for worsening shortness of breath and cough. Pulmonary consulted on 02/27/17 to evaluate dyspnea. COPD exacerbation, Chronic respiratory failure Hx of sleep apnea Hx of tracheostomy Tolerating trach collar well with O2 sat at 94% Continue present treatment Albuterol/ipratropium 3cc INH R QID Avelox 400mg IV Tessalon Perles 100mg TID Robitussin 200mg QID Solumedrol 60mg IV Q8 hours Singulair 10mg PO HS Blood cultures negative Urine culture positive for multiple species. Consider repeat specimen. 02/27/17: CXR No acute infiltrate. Limited examination? 02/28/17: CXR Patchy bilateral perihilar opacities. Tracheostomy tube. Objective - Vital Signs/Intake and Output Vital Signs (last 24 hours): Temp Pulse Resp BP Pulse Ox 98.2 F 65 16 147/79 94 L 03/05/17 04:00 03/05/17 04:00 03/05/17 04:00 03/05/17 04:00 03/05/17 04:00 Intake and Output: 03/05/17 03/05/17 06:59 18:59 Intake Total 600 Output Total 1500 Balance -900 - Medications Medications: Current Medications Albuterol/Ipratropium (Duoneb 3 Mg/0.5 Mg (3 Ml) Ud) 3 ml INH RQ6 [facility] Last Admin: 03/05/17 13:18 Dose: 3 ml Benzonatate (Tessalon Perles) 100 mg PO TID [facility] Last Admin: 03/05/17 17:55 Dose: 100 mg Docusate Sodium (Colace) 100 mg PO TID [facility] Last Admin: 03/05/17 17:55 Dose: 100 mg Enoxaparin Sodium (Lovenox) 40 mg SC DAILY [facility] Last Admin: 03/05/17 10:06 Dose: 40 mg Gabapentin (Neurontin) 800 mg PO TID [facility] Last Admin: 03/05/17 17:55 Dose: 800 mg Guaifenesin (Robitussin) 200 mg PO QID [facility] Last Admin: 03/05/17 17:57 Dose: 200 mg Insulin Glargine (Lantus) 30 unit SC [facility] Last Admin: 03/04/17 22:28 Dose: 30 units Insulin Human Regular (Novolin R) 0 unit SC [facility] PRN Reason: Protocol Last Admin: 03/05/17 17:56 Dose: 6 unit Lamotrigine (Lamictal) 100 mg PO Q12H [facility] Last Admin: 03/05/17 10:06 Dose: 100 mg Lorazepam (Ativan) 2 mg PO BID PRN PRN Reason: Anxiety Last Admin: 03/05/17 18:01 Dose: 2 mg Methylprednisolone (Solu-Medrol) 60 mg IVP Q8H [facility] Last Admin: 03/05/17 15:16 Dose: 60 mg Montelukast Sodium (Singulair) 10 mg PO [facility] Last Admin: 03/04/17 22:29 Dose: 10 mg Moxifloxacin HCl (Avelox) 400 mg PO Q24H [facility] Last Admin: 03/04/17 20:04 Dose: 400 mg Pantoprazole Sodium (Protonix Susp) 40 mg PO DAILY [facility] Last Admin: 03/05/17 10:06 Dose: 40 mg Quetiapine Fumarate (Seroquel) 400 mg PO Q12H [facility] Last Admin: 03/05/17 10:05 Dose: 400 mg Rosuvastatin Calcium (Crestor) 5 mg PO [facility] Last Admin: 03/04/17 22:29 Dose: 5 mg Sertraline HCl (Zoloft) 100 mg PO Q12H [facility] Last Admin: 03/05/17 10:06 Dose: 100 mg Trazodone HCl (Desyrel) 150 mg PO [facility] Last Admin: 03/04/17 22:31 Dose: 150 mg - Labs Labs: 03/02/17 06:06 03/02/17 06:06 PT 12.0 SECONDS (9.7-12.2) 02/27/17 18:40 INR 1.1 02/27/17 18:40 APTT 33 SECONDS (21-34) 02/27/17 18:40
[2017-03-05] MEDS: (Lantus) Insulin Glargine, Recombinant SC SCH (22:34)
--- NOTE | 2017-03-05 22:58 | CP.PCM.PN ---
Subjective - Date & Time of Evaluation Date of Evaluation: 03/05/17 Time of Evaluation: 17:00 - Subjective Subjective: Pt seen and evaluated, pt c/o cough, associated with thick phelgm which is clear ,less short of breath. Objective - Vital Signs/Intake and Output Vital Signs (last 24 hours): Temp Pulse Resp BP Pulse Ox 98.2 F 65 16 147/79 94 L 03/05/17 04:00 03/05/17 04:00 03/05/17 04:00 03/05/17 04:00 03/05/17 04:00 - Medications Medications: Current Medications Albuterol/Ipratropium (Duoneb 3 Mg/0.5 Mg (3 Ml) Ud) 3 ml INH RQ6 [facility] Last Admin: 03/05/17 21:03 Dose: 3 ml Benzonatate (Tessalon Perles) 100 mg PO TID [facility] Last Admin: 03/05/17 17:55 Dose: 100 mg Docusate Sodium (Colace) 100 mg PO TID [facility] Last Admin: 03/05/17 17:55 Dose: 100 mg Enoxaparin Sodium (Lovenox) 40 mg SC DAILY [facility] Last Admin: 03/05/17 10:06 Dose: 40 mg Gabapentin (Neurontin) 800 mg PO TID [facility] Last Admin: 03/05/17 17:55 Dose: 800 mg Guaifenesin (Robitussin) 200 mg PO QID [facility] Last Admin: 03/05/17 22:36 Dose: 200 mg Insulin Glargine (Lantus) 30 unit SC [facility] Last Admin: 03/05/17 22:34 Dose: 30 units Insulin Human Regular (Novolin R) 0 unit SC [facility] PRN Reason: Protocol Last Admin: 03/05/17 22:33 Dose: Not Given Lamotrigine (Lamictal) 100 mg PO Q12H [facility] Last Admin: 03/05/17 22:35 Dose: 100 mg Lorazepam (Ativan) 2 mg PO BID PRN PRN Reason: Anxiety Last Admin: 03/05/17 18:01 Dose: 2 mg Methylprednisolone (Solu-Medrol) 60 mg IVP Q8H [facility] Last Admin: 03/05/17 22:39 Dose: 60 mg Montelukast Sodium (Singulair) 10 mg PO [facility] Last Admin: 03/05/17 22:36 Dose: 10 mg Moxifloxacin HCl (Avelox) 400 mg PO Q24H [facility] Last Admin: 03/05/17 22:36 Dose: 400 mg Pantoprazole Sodium (Protonix Susp) 40 mg PO DAILY [facility] Last Admin: 03/05/17 10:06 Dose: 40 mg Quetiapine Fumarate (Seroquel) 400 mg PO Q12H [facility] Last Admin: 03/05/17 22:35 Dose: 400 mg Rosuvastatin Calcium (Crestor) 5 mg PO [facility] Last Admin: 03/05/17 22:35 Dose: 5 mg Sertraline HCl (Zoloft) 100 mg PO Q12H [facility] Last Admin: 03/05/17 22:36 Dose: 100 mg Trazodone HCl (Desyrel) 150 mg PO [facility] Last Admin: 03/05/17 22:45 Dose: 150 mg - Labs Labs: 03/02/17 06:06 03/02/17 06:06 PT 12.0 SECONDS (9.7-12.2) 02/27/17 18:40 INR 1.1 02/27/17 18:40 APTT 33 SECONDS (21-34) 02/27/17 18:40 - Constitutional Appears: No Acute Distress - Head Exam Head Exam: ATRAUMATIC, NORMAL INSPECTION, NORMOCEPHALIC - Eye Exam Eye Exam: EOMI, Normal appearance, PERRL Pupil Exam: NORMAL ACCOMODATION, PERRL - Respiratory Exam Respiratory Exam: Decreased Breath Sounds, Rhonchi, Wheezes - Cardiovascular Exam Cardiovascular Exam: REGULAR RHYTHM, +S1, +S2. absent: Murmur - GI/Abdominal Exam GI & Abdominal Exam: Soft, Normal Bowel Sounds. absent: Tenderness Assessment and Plan (1) Pneumonia Status: Acute (2) Respiratory distress Status: Acute (3) Tracheostomy present Status: Acute (4) COPD exacerbation Status: Acute (5) Ventilator dependent Status: Acute (6) Diabetes mellitus Status: Chronic (7) HTN (hypertension) Status: Chronic
[2017-03-06 02:59] VITALS: O2SAT 97
[2017-03-06] MEDS: MethylPREDNISolone 40 mg Vial IVP SCH (06:50)
[2017-03-06] MEDS: Albuterol-Ipratrop 3 mg / 0.5 (3 ml) UD INH SCH ×2 (07:00→16:14)
[2017-03-06] MEDS: (Novolin R) Insulin Human Regular 100 units/ml vial SC SCH ×3 (08:01→16:27)
[2017-03-06 09:14] VITALS: BP 121/74; PULSE 66; RESP 20
[2017-03-06] MEDS: Pantoprazole 40 mg Susp UD PO SCH (09:27)
[2017-03-06] MEDS: guaiFENesin 200 mg/10 ml Syrup UD PO SCH ×3 (09:27→17:11)
[2017-03-06] MEDS: Enoxaparin 40 mg Syringe SC SCH (09:27)
--- NOTE | 2017-03-06 13:23 | CP.PCM.PN ---
Subjective - Date & Time of Evaluation Date of Evaluation: 03/06/17 Time of Evaluation: 13:23 - Subjective Subjective: PATIENT WAS ADMITTED FOR PNEUMONIA, RESPIRATORY DISTRESS AND TRACHEOSTOMY PATIENT AAOX3; ON T COLAR SAT AT 98% ON THE MONITOR LUNG SOUND CLEAR NABOR PATIENT DENIES CHEST PAIN, SOB NO SIGN OF DISTRESS NOTED ONLY CONCERN WAS HER MEDICATION TO BE REFILL WHICH CHERRY SORTER PROVIDED NEW PRESCRIPTION Objective - Vital Signs/Intake and Output Vital Signs (last 24 hours): Temp Pulse Resp BP Pulse Ox 98.5 F 66 20 121/74 97 03/06/17 08:00 03/06/17 08:00 03/06/17 08:00 03/06/17 08:00 03/06/17 08:00 Intake and Output: 03/06/17 03/06/17 06:59 18:59 Intake Total 650 Output Total 1050 Balance -400 - Medications Medications: Current Medications Albuterol/Ipratropium (Duoneb 3 Mg/0.5 Mg (3 Ml) Ud) 3 ml INH RQ6 [facility] Last Admin: 03/06/17 07:00 Dose: 3 ml Benzonatate (Tessalon Perles) 100 mg PO TID [facility] Last Admin: 03/06/17 13:15 Dose: 100 mg Docusate Sodium (Colace) 100 mg PO TID [facility] Last Admin: 03/06/17 13:15 Dose: Not Given Enoxaparin Sodium (Lovenox) 40 mg SC DAILY [facility] Last Admin: 03/06/17 09:27 Dose: 40 mg Gabapentin (Neurontin) 800 mg PO TID [facility] Last Admin: 03/06/17 13:14 Dose: 800 mg Guaifenesin (Robitussin) 200 mg PO QID [facility] Last Admin: 03/06/17 13:14 Dose: 200 mg Insulin Glargine (Lantus) 30 unit SC HS [facility] Last Admin: 03/05/17 22:34 Dose: 30 units Insulin Human Regular (Novolin R) 0 unit SC [facility] PRN Reason: Protocol Last Admin: 03/06/17 11:57 Dose: 5 unit Lamotrigine (Lamictal) 100 mg PO Q12H [facility] Last Admin: 03/06/17 09:46 Dose: 100 mg Lorazepam (Ativan) 2 mg PO BID PRN PRN Reason: Anxiety Last Admin: 03/06/17 09:44 Dose: 2 mg Montelukast Sodium (Singulair) 10 mg PO [facility] Last Admin: 03/05/17 22:36 Dose: 10 mg Moxifloxacin HCl (Avelox) 400 mg PO Q24H [facility] Last Admin: 03/05/17 22:36 Dose: 400 mg Pantoprazole Sodium (Protonix Susp) 40 mg PO DAILY [facility] Last Admin: 03/06/17 09:27 Dose: 40 mg Prednisone (Prednisone Tab) 40 mg PO DAILY [facility] Quetiapine Fumarate (Seroquel) 400 mg PO Q12H [facility] Last Admin: 03/06/17 09:46 Dose: 400 mg Rosuvastatin Calcium (Crestor) 5 mg PO [facility] Last Admin: 03/05/17 22:35 Dose: 5 mg Sertraline HCl (Zoloft) 100 mg PO Q12H [facility] Last Admin: 03/06/17 09:30 Dose: 100 mg Trazodone HCl (Desyrel) 150 mg PO [facility] Last Admin: 03/05/17 22:45 Dose: 150 mg - Labs Labs: 03/02/17 06:06 03/02/17 06:06 PT 12.0 SECONDS (9.7-12.2) 02/27/17 18:40 INR 1.1 02/27/17 18:40 APTT 33 SECONDS (21-34) 02/27/17 18:40 Assessment and Plan - Assessment and Plan (Free Text) Plan: PATIENT IS SEEN AND EXAMINED AT THE BEDSIDE BREATH NORMAL ; LUNG SOUND CLEAR INSTRUCTION GIVEN ABOUT THE PREDNISONE AND BENADRYL DISCUSS WITH DR HUGGINS AND DR SINGLETON BOTH CLEAR THE PATIENT FOR MI HOME TODAY FOLLOW UP WITH DR HUGGINS IN 1-2 WEEKS AT HIS OFFICE ---CALL HIS OFFICE FOR APPOINTMENT CONTINUE ALL YOUR HOME MEDICATION PER MED REC NEW RX GIVEN BENADRYL 25 MG BY MOUTH EVERY 8 HOURS SOLUMEDROL TAPER 40 MG PO BY MOUTH DAILY FOR 3 DAYS THEN 30 MG BY MOUTH DAILY FOR 3 DAYS THEN 20 MG BY MOUTH DAILY FOR 3 DAYS THEN 10 MG BY MOUTH DAILY FOR 3 DAYS ACTIVITY TOLERATED CONTINUE HOME OXYGEN USUAL CALL DR HUGGINS OR GO TO THE EMERGENCY ROOM IF SYMPTOMS RETURN OR WORSENING DISCUSS WITH PATIENT WHO AGREE AND VERBALIZED UNDERSTANDING
[2017-03-06 16:05] VITALS: TEMP 98.3
--- NOTE | 2017-03-06 16:48 | CP.PCM.PN ---
Subjective - Date & Time of Evaluation Date of Evaluation: 03/06/17 Time of Evaluation: 08:00 - Subjective Subjective: Patient seen and examined at bedside. She is currently out of bed in a reclining chair. She states her shortness of breath has improved a lot. She complains she has a persistent cough with secretions that need to be suctioned about 5 times a day. Currently tolerating trach collar well with O2 sat at 97%. Assessment and plan 61 year old female with history of COPD, chronic respiratory failure, tracheostomy who was admitted for worsening shortness of breath and cough. Pulmonary consulted on 02/27/17 to evaluate dyspnea. COPD exacerbation, Chronic respiratory failure Hx of sleep apnea Hx of tracheostomy Tolerating trach collar well with O2 sat at 97% Continue present treatment: Albuterol/ipratropium 3cc INH R QID Avelox 400mg PO daily Tessalon Perles 100mg TID Robitussin 200mg QID Prednisone 40mg PO Singulair 10mg PO HS Prednisone 40mg PO daily Blood cultures negative Urine culture positive for multiple species. Consider repeat specimen. 02/27/17: CXR No acute infiltrate. Limited examination? 02/28/17: CXR Patchy bilateral perihilar opacities. Tracheostomy tube. Objective - Vital Signs/Intake and Output Vital Signs (last 24 hours): Temp Pulse Resp BP Pulse Ox 98.3 F 66 20 121/74 97 03/06/17 16:00 03/06/17 08:00 03/06/17 08:00 03/06/17 08:00 03/06/17 08:00 Intake and Output: 03/06/17 03/06/17 06:59 18:59 Intake Total 650 Output Total 1050 Balance -400 - Medications Medications: Current Medications Albuterol/Ipratropium (Duoneb 3 Mg/0.5 Mg (3 Ml) Ud) 3 ml INH RQ6 [facility] Last Admin: 03/06/17 07:00 Dose: 3 ml Benzonatate (Tessalon Perles) 100 mg PO TID [facility] Last Admin: 03/06/17 13:15 Dose: 100 mg Docusate Sodium (Colace) 100 mg PO TID [facility] Last Admin: 03/06/17 13:15 Dose: Not Given Enoxaparin Sodium (Lovenox) 40 mg SC DAILY [facility] Last Admin: 03/06/17 09:27 Dose: 40 mg Gabapentin (Neurontin) 800 mg PO TID [facility] Last Admin: 03/06/17 13:14 Dose: 800 mg Guaifenesin (Robitussin) 200 mg PO QID [facility] Last Admin: 03/06/17 13:14 Dose: 200 mg Insulin Glargine (Lantus) 30 unit SC [facility] Last Admin: 03/05/17 22:34 Dose: 30 units Insulin Human Regular (Novolin R) 0 unit SC [facility] PRN Reason: Protocol Last Admin: 03/06/17 16:27 Dose: 2 unit Lamotrigine (Lamictal) 100 mg PO Q12H [facility] Last Admin: 03/06/17 09:46 Dose: 100 mg Lorazepam (Ativan) 2 mg PO BID PRN PRN Reason: Anxiety Last Admin: 03/06/17 09:44 Dose: 2 mg Montelukast Sodium (Singulair) 10 mg PO [facility] Last Admin: 03/05/17 22:36 Dose: 10 mg Moxifloxacin HCl (Avelox) 400 mg PO Q24H [facility] Last Admin: 03/05/17 22:36 Dose: 400 mg Pantoprazole Sodium (Protonix Susp) 40 mg PO DAILY [facility] Last Admin: 03/06/17 09:27 Dose: 40 mg Prednisone (Prednisone Tab) 40 mg PO DAILY [facility] Quetiapine Fumarate (Seroquel) 400 mg PO Q12H [facility] Last Admin: 03/06/17 09:46 Dose: 400 mg Rosuvastatin Calcium (Crestor) 5 mg PO [facility] Last Admin: 03/05/17 22:35 Dose: 5 mg Sertraline HCl (Zoloft) 100 mg PO Q12H [facility] Last Admin: 03/06/17 09:30 Dose: 100 mg Trazodone HCl (Desyrel) 150 mg PO [facility] Last Admin: 03/05/17 22:45 Dose: 150 mg - Labs Labs: 03/02/17 06:06 03/02/17 06:06 PT 12.0 SECONDS (9.7-12.2) 02/27/17 18:40 INR 1.1 02/27/17 18:40 APTT 33 SECONDS (21-34) 02/27/17 18:40
--- NOTE | 2017-03-06 21:06 | CP.PCM.DIS ---
Provider - Provider Date of Admission: 02/27/17 21:27 Attending physician: Ad Khan MD Diagnosis - Discharge Diagnosis (1) Pneumonia Status: Acute (2) Respiratory distress Status: Acute (3) Tracheostomy present Status: Acute (4) COPD exacerbation Status: Acute (5) Ventilator dependent Status: Acute (6) Diabetes mellitus Status: Chronic (7) HTN (hypertension) Status: Chronic Hospital Course - Lab Results Lab Results: Micro Results 02/27/17 18:30 Blood Blood Culture - Final NO GROWTH AFTER 5 DAYS 02/27/17 18:30 Blood Gram Stain - Final TEST NOT PERFORMED 02/27/17 19:00 Blood Blood Culture - Final NO GROWTH AFTER 5 DAYS 02/27/17 19:00 Blood Gram Stain - Final TEST NOT PERFORMED 02/28/17 08:13 Urine Urine Culture - Final 50-100,000 CFU/ML. MULTIPLE SPECIES. SUGGEST REPEAT SPECIMEM. 02/27/17 22:48 Nose MRSA Culture (Admit) - Final MRSA DETECTED Most Recent Lab Values WBC 13.2 K/uL (4.8-10.8) H 03/02/17 06:06 RBC 4.11 Mil/uL (3.80-5.20) 03/02/17 06:06 Hgb 11.1 g/dL (11.0-16.0) 03/02/17 06:06 Hct 33.2 % (34.0-47.0) L 03/02/17 06:06 MCV 80.9 fL (81.0-99.0) L 03/02/17 06:06 MCH 27.1 pg (27.0-31.0) 03/02/17 06:06 MCHC 33.5 g/dL (33.0-37.0) 03/02/17 06:06 RDW 16.3 % (11.5-14.5) H 03/02/17 06:06 Plt Count 172 K/uL (130-400) 03/02/17 06:06 MPV 8.3 fL (7.2-11.7) 03/02/17 06:06 Neut % (Auto) 91.4 % (50.0-75.0) H 03/02/17 06:06 Lymph % (Auto) 6.0 % (20.0-40.0) L 03/02/17 06:06 [place] % (Auto) 2.5 % (0.0-10.0) 03/02/17 06:06 Eos % (Auto) 0.0 % (0.0-4.0) 03/02/17 06:06 Baso % (Auto) 0.1 % (0.0-2.0) 03/02/17 06:06 Neut # 12.0 K/uL (1.8-7.0) H 03/02/17 06:06 Lymph # 0.8 K/uL (1.0-4.3) L 03/02/17 06:06 [place] # 0.3 K/uL (0.0-0.8) 03/02/17 06:06 Eos # 0.0 K/uL (0.0-0.7) 03/02/17 06:06 Baso # 0.0 K/uL (0.0-0.2) 03/02/17 06:06 Neutrophils % (Manual) 89 % (50-75) H 03/02/17 06:06 Band Neutrophils % 1 % (0-2) 03/02/17 06:06 Lymphocytes % (Manual) 7 % (20-40) L 03/02/17 06:06 Monocytes % (Manual) 3 % (0-10) 03/02/17 06:06 Toxic Granulation Present 03/02/17 06:06 Platelet Estimate Normal (NORMAL) 03/02/17 06:06 Hypochromasia (manual) Slight 03/02/17 06:06 Poikilocytosis (manual Slight 03/02/17 06:06 Anisocytosis (manual) Slight 03/02/17 06:06 Tear Drop Cells Slight 03/02/17 06:06 PT 12.0 SECONDS (9.7-12.2) 02/27/17 18:40 INR 1.1 02/27/17 18:40 APTT 33 SECONDS (21-34) 02/27/17 18:40 Puncture Site Rba 02/27/17 20:54 pCO2 39 mm/Hg (35-45) 02/27/17 20:54 pO2 368 mm/Hg (80-100) H 02/27/17 20:54 HCO3 22.6 mmol/L (21-28) 02/27/17 20:54 ABG pH 7.36 (7.35-7.45) 02/27/17 20:54 ABG Total CO2 23.2 mmol/L (22-28) 02/27/17 20:54 ABG O2 Saturation 98.9 % (95-98) H 02/27/17 20:54 ABG Base Excess -3.1 mmol/L (-2.0-3.0) L 02/27/17 20:54 Rob Test Na 02/27/17 20:54 ABG Potassium 3.5 mmol/L (3.6-5.2) L 02/27/17 20:54 A-a O2 Difference 296.0 mm/Hg 02/27/17 20:54 Respiratory Index 0.8 02/27/17 20:54 Sodium 143.0 mmol/l (132-148) 02/27/17 20:54 Chloride 113.0 mmol/L (98-107) H 02/27/17 20:54 Glucose 208 mg/dl (65-105) H 02/27/17 20:54 Lactate 1.2 mmol/L (0.7-2.1) 02/27/17 20:54 Vent Mode Cpap 02/27/17 20:54 FiO2 100.0 % 02/27/17 20:54 PEEP 5 02/27/17 20:54 Pressure Support 15 02/27/17 20:54 Sodium 136 mmol/L (132-148) 03/02/17 06:06 Potassium 4.7 mmol/L (3.6-5.2) 03/02/17 06:06 Chloride 102 mmol/L (98-107) 03/02/17 06:06 Carbon Dioxide 26 mmol/L (22-30) 03/02/17 06:06 Anion Gap 13 (10-20) 03/02/17 06:06 BUN 35 mg/dL (7-17) H 03/02/17 06:06 Creatinine 1.0 mg/dL (0.7-1.2) 03/02/17 06:06 Est GFR ( Amer) > 60 03/02/17 06:06 Est GFR (Non-Af Amer) 57 03/02/17 06:06 POC Glucose (mg/dL) 235 mg/dL (65-110) H 03/06/17 16:09 Random Glucose 302 mg/dL (65-105) H 03/02/17 06:06 Hemoglobin A1c 8.7 % (4.2-6.5) H 02/28/17 06:15 Calcium 8.7 mg/dl (8.6-10.4) 03/02/17 06:06 Phosphorus 4.2 mg/dL (2.5-4.5) 02/28/17 06:17 Magnesium 1.8 mg/dL (1.6-2.3) 02/28/17 06:17 Total Bilirubin 0.5 mg/dL (0.2-1.3) 03/02/17 06:06 AST 48 U/L (14-36) H D 03/02/17 06:06 ALT 16 U/L (9-52) 03/02/17 06:06 Alkaline Phosphatase 78 U/L (38-126) 03/02/17 06:06 Troponin I 0.0160 ng/mL (0.00-0.120) 02/27/17 18:40 NT-Pro-B Natriuret Pep 218 pg/mL (0-900) 02/27/17 18:40 Total Protein 7.7 g/dL (6.3-8.3) 03/02/17 06:06 Albumin 3.8 g/dL (3.5-5.0) 03/02/17 06:06 Globulin 3.9 gm/dL (2.2-3.9) 03/02/17 06:06 Albumin/Globulin Ratio 1.0 (1.0-2.1) 03/02/17 06:06 Arterial Blood Potassium 3.5 mmol/L (3.6-5.2) L 02/27/17 20:54 Urine Color Yellow (YELLOW) 02/28/17 09:43 Urine Clarity Hazy (Clear) 02/28/17 09:43 Urine pH 5.0 (5.0-8.0) 02/28/17 09:43 Ur Specific [place] 1.030 (1.003-1.030) 02/28/17 09:43 Urine Protein 1+ mg/dL (NEGATIVE) H 02/28/17 09:43 Urine Glucose (UA) 2+ mg/dL (Normal) H 02/28/17 09:43 Urine Ketones Negative mg/dL (NEGATIVE) 02/28/17 09:43 Urine Blood 2+ (NEGATIVE) H 02/28/17 09:43 Urine Nitrate Negative (NEGATIVE) 02/28/17 09:43 Urine Bilirubin Negative (NEGATIVE) 02/28/17 09:43 Urine Urobilinogen Normal mg/dL (0.2-1.0) 02/28/17 09:43 Ur Leukocyte Esterase 2+ Brian/uL (Negative) H 02/28/17 09:43 Urine WBC (Auto) 32 /hpf (0-5) H 02/28/17 09:43 Urine RBC (Auto) 12 /hpf (0-3) H 02/28/17 09:43 Ur Squamous Epith Cells 7 /hpf (0-5) H 02/28/17 09:43 Urine Bacteria Occ (<OCC) H 02/28/17 09:43 - Hospital Course Hospital Course: Patient seen and examined at bedside. She is currently out of bed in a reclining chair. She states her shortness of breath has improved a lot. She complains she has a persistent cough with secretions that need to be suctioned about 5 times a day. Currently tolerating trach collar well with O2 sat at 97%. Assessment and plan 61 year old female with history of COPD, chronic respiratory failure, tracheostomy who was admitted for worsening shortness of breath and cough. Pulmonary consulted on 02/27/17 to evaluate dyspnea. COPD exacerbation, Chronic respiratory failure Hx of sleep apnea Hx of tracheostomy Tolerating trach collar well with O2 sat at 97% Continue present treatment: Albuterol/ipratropium 3cc INH R QID Avelox 400mg PO daily Tessalon Perles 100mg TID Robitussin 200mg QID Prednisone 40mg PO Singulair 10mg PO HS Prednisone 40mg PO daily Blood cultures negative Urine culture positive for multiple species. Consider repeat specimen. 02/27/17: CXR No acute infiltrate. Limited examination? 02/28/17: CXR Patchy bilateral perihilar opacities. Tracheostomy tube. Discharge Exam - Head Exam Head Exam: ATRAUMATIC, NORMAL INSPECTION, NORMOCEPHALIC - Eye Exam Eye Exam: EOMI, Normal appearance, PERRL Pupil Exam: NORMAL ACCOMODATION, PERRL - Respiratory Exam Respiratory Exam: Decreased Breath Sounds, Rales, Rhonchi - Cardiovascular Exam Cardiovascular Exam: REGULAR RHYTHM Discharge Plan - Discharge Medications Prescriptions: Diphenhydramine HCl [Benadryl Allergy] 25 mg PO Q8H PRN #90 tablet PRN Reason: Allergy Symptoms Colistimethate [Coly-Mycin M] 150 mg IV Q12H #14 vial traZODone [Desyrel] 150 mg PO HS #30 tab lamoTRIgine [Lamictal] 100 mg PO Q12H #60 tab Gabapentin [Neurontin] 800 mg PO TID #90 tab predniSONE [predniSONE Tab] 10 mg PO DAILY #30 tab Pantoprazole [Protonix Susp] 40 mg PO DAILY #30 packet QUEtiapine [SEROquel] 400 mg PO Q12H #20 tab Montelukast [Singulair] 10 mg PO HS #30 tab Benzonatate [Tessalon Perles] 100 mg PO TID #30 sgl Sertraline [Zoloft] 100 mg PO HS #30 tab - Follow Up Plan Condition: GUARDED Disposition: HOME/ ROUTINE Instructions: Prednisone (By mouth), Diphenhydramine (By mouth), Tracheostomy Care (DC), Acute Respiratory Distress Syndrome (DC), Aspiration Pneumonia (DC) Additional Instructions: FOLLOW UP WITH DR KHAN IN 1-2 WEEKS AT HIS OFFICE ---CALL HIS OFFICE FOR APPOINTMENT CONTINUE ALL YOUR HOME MEDICATION PER MED REC NEW RX GIVEN BENADRYL 25 MG BY MOUTH EVERY 8 HOURS SOLUMEDROL TAPER 40 MG PO BY MOUTH DAILY FOR 3 DAYS THEN 30 MG BY MOUTH DAILY FOR 3 DAYS THEN 20 MG BY MOUTH DAILY FOR 3 DAYS THEN 10 MG BY MOUTH DAILY FOR 3 DAYS ACTIVITY TOLERATED CONTINUE HOME OXYGEN USUAL CALL DR KHAN OR GO TO THE EMERGENCY ROOM IF SYMPTOMS RETURN OR WORSENING Referrals: Rodo Rosado MD [Staff Provider] - Wellington Lopez MD [Staff Provider] - Ad Khan MD [Staff Provider] -
== END 2017-03-06 20:00 | disposition home or self-care (01) | DRG 881 ==
LOC: C.ER 18:14 → C.9I 21:27
PROVIDERS: ADMIT Internal Medicine; ATTEND Internal Medicine
PROC: 5A1955Z Respiratory Ventilation, Greater than 96 Consecutive Hours (ICD-10-PCS; principal; 2017-02-27)
DX: J44.0 Chronic obstructive pulmonary disease with (acute) lower respiratory infection (principal); J18.9 Pneumonia, unspecified organism; I11.0 Hypertensive heart disease with heart failure; I50.9 Heart failure, unspecified; E66.01 Morbid (severe) obesity due to excess calories; J96.10 Chronic respiratory failure, unspecified whether with hypoxia or hypercapnia; F25.0 Schizoaffective disorder, bipolar type; Z99.11 Dependence on respirator [ventilator] status; J44.1 Chronic obstructive pulmonary disease with (acute) exacerbation; F41.9 Anxiety disorder, unspecified; Z93.0 Tracheostomy status; G47.30 Sleep apnea, unspecified; Z90.49 Acquired absence of other specified parts of digestive tract; Z68.42 Body mass index [BMI] 45.0-49.9, adult; E11.9 Type 2 diabetes mellitus without complications; Z88.6 Allergy status to analgesic agent; Z79.4 Long term (current) use of insulin

== ENCOUNTER 2017-03-10 22:31 | Inpatient (IN) | payer OTHER ==
[2017-03-10 22:31] VITALS: BMI 45.6
--- NOTE | 2017-03-10 22:57 | C.PDOC ---
History Of Present Illness 61F c/o sob worsening since this morning. dc from here a few days ago after being admitted for pna. +chills no fever. Time Seen by Provider: 03/10/17 22:34 Chief Complaint (Nursing): Shortness Of Breath Past Medical History Vital Signs: Last Vital Signs Temp 98.9 F 03/16/17 15:03 Pulse 62 03/16/17 16:43 Resp 20 03/16/17 15:03 BP 156/79 H 03/16/17 15:03 Pulse Ox 97 03/16/17 15:03 - Medical History PMH: Anxiety, Asthma, Bipolar Disorder, Bronchitis, CHF, COPD, Depression, Emphysema, HTN, Pneumonia, Seizures, Sleep Apnea Denies: Arthritis, HIV, Hypercholesterolemia, Hypothyroidism, Chronic Kidney Disease, Rheumatoid Arthritis, Sexually Transmitted Disease Surgical History: Appendectomy, Cholecystectomy - [facility] Procedures ASSISTANCE WITH RESPIRATORY VENTILATION, <24 HRS, CPAP (03/14/16) CENTRAL VENOUS CATHETER PLACEMENT WITH GUIDANCE (10/24/14) CHANGE TRACHEOSTOMY DEVICE IN TRACHEA, EXTERNAL APPROACH (08/25/16) CONTINUOUS INVASIVE MECHANICAL VENTILATION <96 CONSEC HRS (03/07/14) ENTERAL INFUSION OF CONCENTRATED NUT. SUBSTANCES (09/17/12) INSERT ENDOTRACHEAL TUBE (09/17/12) INSERTION OF INFUSION DEV INTO SUP VENA CAVA, PERC APPROACH (12/03/15) INTRODUCE OF OTH THERAP SUBST INTO RESP TRACT, VIA OPENING (05/03/15) NEBULIZER THERAPY (09/17/12) RESPIRATORY VENTILATION, 24-96 CONSECUTIVE HOURS (03/14/16) RESPIRATORY VENTILATION, GREATER THAN 96 CONSECUTIVE HOURS (02/27/17) Family History: States: Unknown Family Hx - Social History Hx Tobacco Use: No Hx Alcohol Use: No Hx Substance Use: No - Immunization History Hx Tetanus Toxoid Vaccination: No Hx Influenza Vaccination: No Hx Pneumococcal Vaccination: No Review Of Systems Review Of Systems: ROS cannot be obtained secondary to pt's inabilty to answer questions. Physical Exam - Physical Exam Appears: In Acute Distress Skin: Warm, Dry Eye(s): bilateral: PERRL Nose: No Epistaxis Oral Mucosa: Moist Neck: Other (trach in place) Cardiovascular: Rhythm Regular Respiratory: Accessory Muscle Use, Rhonchi Gastrointestinal/Abdominal: Soft, No Tenderness Extremity: No Deformity Pulses: Left Radial: Normal, Right Radial: Normal Neurological/Psych: Oriented x3, Other (no focal deficits) ED Course And Treatment - Laboratory Results Result Diagrams: 03/15/17 07:10 03/15/17 07:10 O2 Sat by Pulse Oximetry: 100 Medical Decision Making Medical Decision Making: on arrival pt suctioned and placed on pressure support cxr shows bilateral patchy opacities similar to prior ecg- sinus tachycardia 104, no stemi Disposition - Disposition Disposition: HOSPITALIZED Disposition Time: 23:51 Condition: GUARDED - Clinical Impression Clinical Impression: Pneumonia
[2017-03-10] MEDS ORDERED: Vancomycin 1.75 GM in Sodium Chloride 0.9% 500 ML IVPB ONE (23:00)
[2017-03-10] MEDS ORDERED: Sodium Chloride 0.9% 1,000 ML IV ONE (23:12)
[2017-03-10] MEDS ORDERED: Vancomycin 500 mg Inj IVPB STA (23:14)
[2017-03-10] MEDS ORDERED: Aztreonam 2 GM in Sodium Chloride 0.9% 100 ML IVPB ONE (23:14)
[2017-03-10] MEDS ORDERED: Sodium Chloride 0.9% 1,000 ML ONE (23:24)
[2017-03-10 23:27] LABS: VENOUS BLOOD GAS BASE EXCESS 2.2 mmol/L (0.0-2.0); VENOUS BLOOD GAS PCO2 46 mmHg (40-60); VENOUS BLOOD GAS PO2 40 mm/Hg (30-55); VENOUS BLOOD PH 7.39 (7.32-7.43)
[2017-03-10] MEDS ORDERED: Acetylcysteine 20% Inhal Soln (4ml) INH STA (23:31)
[2017-03-10] MEDS ORDERED: Albuterol-Ipratrop 3 mg / 0.5 (3 ml) UD ONE ×3 (23:33)
[2017-03-10 23:46] LABS: ALBUMIN 4.1 g/dL (3.5-5.0); ALT/SGPT 22 U/L (9-52); AST/SGOT 17 U/L (14-36); BLOOD UREA NITROGEN 14 mg/dL (7-17); CALCIUM 8.8 mg/dl (8.6-10.4); GFR AFRICAN-AMERICAN > 60; GFR NON-AFRICAN AMERICAN > 60
[2017-03-10 23:49] LABS: BASO # 0.1 K/uL (0.0-0.2); BASO % 0.4 % (0.0-2.0); EOS # 0.2 K/uL (0.0-0.7); EOS % 1.2 % (0.0-4.0); HEMOGLOBIN 13.4 g/dL (11.0-16.0); LYMPH # 3.6 K/uL (1.0-4.3); MEAN CELL VOLUME 80.6 fL (81.0-99.0); MEAN CORPUSCULAR HEMOGLOBIN 27.1 pg (27.0-31.0); MEAN CORPUSCULAR HGB CONC 33.6 g/dL (33.0-37.0); MEAN PLATELET VOLUME 9.1 fL (7.2-11.7); MONO # 1.2 K/uL (0.0-0.8); MONO % 6.8 % (0.0-10.0); NEUT # 13.1 K/uL (1.8-7.0); NEUT % 71.6 % (50.0-75.0); RBC 4.95 Mil/uL (3.80-5.20); RED CELL DISTRIBUTION WIDTH 15.7 % (11.5-14.5); WHITE BLOOD COUNT 18.3 K/uL (4.8-10.8)
[2017-03-11] MEDS: Albuterol-Ipratrop 3 mg / 0.5 (3 ml) UD IH SCH ×3 (00:15→00:34)
[2017-03-11] MEDS ORDERED: Morphine 4 MG/ML VIAL ONE (00:54)
[2017-03-11] MEDS: guaiFENesin 200 mg/10 ml Syrup UD PO SCH ×5 (04:16→20:00)
[2017-03-11] MEDS: Oxycodone/Acetaminophen 5/325 mg Tab PO PRN ×4 (04:16→22:01)
[2017-03-11] MEDS: Piperacill/Tazo 3.375gm in Dex 3.375 GM/50 ML BAG IVPB SCH ×3 (05:31→18:13)
--- NOTE | 2017-03-11 07:41 | CP.PCM.PN ---
Subjective - Date & Time of Evaluation Date of Evaluation: 03/11/17 Time of Evaluation: 07:00 - Subjective Subjective: Vent is being used to provide bipap setting due to patient having trache, PS of 10 over 5 or peep, she was on 60% Fio2, reduced to 45% and, nursing will do spo2 check, patient is comfortable not in distress. Objective - Vital Signs/Intake and Output Vital Signs (last 24 hours): Temp Pulse Resp BP Pulse Ox 98.3 F 94 H 20 101/67 100 03/11/17 06:37 03/11/17 06:37 03/11/17 06:37 03/11/17 06:37 03/11/17 07:00 - Medications Medications: Current Medications Albuterol/Ipratropium (Duoneb 3 Mg/0.5 Mg (3 Ml) Ud) 3 ml INH RQ6 [facility] Diphenhydramine HCl (Benadryl) 25 mg PO Q8H PRN PRN Reason: Allergy symptoms Enoxaparin Sodium (Lovenox) 40 mg SC DAILY [facility] Gabapentin (Neurontin) 800 mg PO TID [facility] Guaifenesin (Robitussin) 200 mg PO Q4H [facility] Last Admin: 03/11/17 04:16 Dose: 200 mg Vancomycin HCl 1 gm/ Sodium (Chloride) 200 mls @ 133.333 mls/hr IVPB Q12H [facility] Piperacillin Sod/Tazobactam Sod (Zosyn 3.375 Gm Iv Premix) 3.375 gm in 50 mls @ 100 mls/hr IVPB Q6H [facility] Last Admin: 03/11/17 05:31 Dose: 100 mls/hr Insulin Glargine (Lantus) 30 unit SC HS [facility] Insulin Human Regular (Novolin R) 0 unit SC ACHS [facility] PRN Reason: Protocol Lorazepam (Ativan) 2 mg PO TID PRN PRN Reason: Anxiety Last Admin: 03/11/17 07:03 Dose: 2 mg Montelukast Sodium (Singulair) 10 mg PO HS [facility] Oxycodone/Acetaminophen (Percocet 5/325 Mg Tab) 1 tab PO Q4H PRN PRN Reason: Pain, moderate (4-7) Stop: 03/14/17 03:34 Last Admin: 03/11/17 04:16 Dose: 1 tab Pantoprazole Sodium (Protonix Ec Tab) 20 mg PO DAILY [facility] Quetiapine Fumarate (Seroquel Xr) 400 mg PO Q12 [facility] Sertraline HCl (Zoloft) 100 mg PO HS [facility] Trazodone HCl (Desyrel) 150 mg PO HS [facility] - Labs Labs: 03/10/17 23:20 03/10/17 23:20
[2017-03-11] MEDS: (Novolin R) Insulin Human Regular 100 units/ml vial SC SCH ×4 (08:01→22:08)
--- NOTE | 2017-03-11 08:34 | RAD ---
HISTORY: Shortness of breath COMPARISON: 02/28/2017 FINDINGS: LUNGS: No active pulmonary disease. PLEURA: No significant pleural effusion identified, no pneumothorax apparent. CARDIOVASCULAR: No radiographic findings to suggest acute or significant cardiovascular disease. OSSEOUS STRUCTURES: No significant abnormalities. VISUALIZED UPPER ABDOMEN: Normal. OTHER FINDINGS: Stable, satisfactory position of tracheostomy device. IMPRESSION: No active disease. No significant interval change compared to the prior examination(s).
[2017-03-11] MEDS: Albuterol-Ipratrop 3 mg / 0.5 (3 ml) UD INH SCH ×3 (08:54→19:56)
[2017-03-11] MEDS: Enoxaparin 40 mg Syringe SC SCH (09:54)
[2017-03-11] MEDS: QUEtiapine 200 mg XR Tab PO SCH ×2 (09:55→22:00)
[2017-03-11] MEDS: Pantoprazole 20 mg EC Tab PO SCH (09:55)
[2017-03-11] MEDS: Vancomycin 1 GM in Sodium Chloride 0.9% 200 ML IVPB SCH (12:09)
[2017-03-11] MEDS: (Lantus) Insulin Glargine, Recombinant SC SCH (22:08)
--- NOTE | 2017-03-11 22:21 | CP.PCM.HP ---
History of Present Illness - History of Present Illness History of Present Illness: CC: cough with sputum production HPI: 61 Year old female with PMH significant for Bronchial asthama, on tracheostomy tube , depression and multiple hospitalizations recently was discharged from [facility] came back again when she developed fever, chills, cough with sputum, thick secreations in tracheostomy tube Present on Admission - Present on Admission Any Indicators Present on Admission: Yes Review of Systems - Review of Systems Systems not reviewed;Unavailable: Acuity of Condition - Constitutional Constitutional: Chills, Fatigue, Fever, Lethargy, Malaise - EENT Eyes: absent: As Per HPI, Blind Spots, Blurred Vision, Change in Vision, Decreased Night Vision, Diplopia, Discharge, Dry Eye, Exophthalmos, Floaters, Irritation, Itchy Eyes, Loss of Peripheral Vision, Pain, Photophobia, Requires Corrective Lenses, Sees Flashes, Spots in Vision, Tunnel Vision, Other Visual Disturbances, Loss of Vision, Other Nose/Mouth/Throat: absent: As Per HPI, Epistaxis, Nasal Congestion, Nasal Discharge, Nasal Obstruction, Nasal Trauma, Nose Pain, Post Nasal Drip, Sinus Pain, Sinus Pressure, Bleeding Gums, Change in Voice, Dental Pain, Dry Mouth, Dysphagia, Halitosis, Hoarsness, Lip Swelling, Mouth Lesions, Mouth Pain, Odynophagia, Sore Throat, Throat Swelling, Tongue Swelling, Facial Pain, Neck Pain, Neck Mass, Other - Cardiovascular Cardiovascular: Dyspnea - Respiratory Respiratory: Cough, Dyspnea on Exertion, Wheezing, Chest Congestion, Change in Mucous Color - Gastrointestinal Gastrointestinal: absent: As Per HPI, Abdominal Pain, Belching, Bloating, Change in Bowel Habits, Change in Stool Character, Coffee Ground Emesis, Constipation, Cramping, Diarrhea, Dyspepsia, Dysphagia, Early Satiety, Excessive Flatus, Fecal Incontinence, Heartburn, Hematemesis, Hematochezia, Loose Stools, Melena, Nausea, Odynophagia, Temesmus, Vomiting, Other - Genitourinary Genitourinary: absent: As Per HPI, Change in Urinary Stream, Difficulty Urinating, Dysuria, Flank Pain, Hematuria, Pyuria, Nocturia, Urinary Incontinence, Urinary Frequency, Urinary Hesitance, Urinary Urgency, Voiding Freq/Small Amts, Freq UTI, Hx Renal/Bladder Calculi, Hx /Renal Surgery, Bladder Distension, Other Past Patient History - Infectious Disease Hx of Infectious Diseases: None - Tetanus Immunizations Tetanus Immunization: Unknown - Past Medical History & Family History Past Medical History?: Yes - Past Social History Smoking Status: Never Smoked - CARDIAC Hx Cardiac Disorders: Yes Hx Congestive Heart Failure: Yes Hx Hypercholesterolemia: No Hx Hypertension: Yes - PULMONARY Hx Respiratory Disorders: Yes Hx Asthma: Yes Hx Bronchitis: Yes Hx Chronic Obstructive Pulmonary Disease (COPD): Yes Hx Emphysema: Yes Hx Pneumonia: Yes Hx Sleep Apnea: Yes - NEUROLOGICAL Hx Neurological Disorder: Yes Hx Seizures: Yes - HEENT Hx HEENT Problems: Yes Hx Cataracts: Yes - RENAL Hx Chronic Kidney Disease: No - ENDOCRINE/METABOLIC Hx Endocrine Disorders: Yes Hx Hypothyroidism: No - HEMATOLOGICAL/ONCOLOGICAL Hx Blood Disorders: Yes Hx Human Immunodeficiency Virus (HIV): No - INTEGUMENTARY Hx Dermatological Problems: No - MUSCULOSKELETAL/RHEUMATOLOGICAL Hx Musculoskeletal Disorders: Yes Hx Arthritis: No Hx Falls: Yes Hx Rheumatoid Arthritis: No - GASTROINTESTINAL Hx Gastrointestinal Disorders: Yes Other/Comment: cholecystectomy - GENITOURINARY/GYNECOLOGICAL Hx Genitourinary Disorders: No Hx Sexually Transmitted Disorders: No - PSYCHIATRIC Hx Psychophysiologic Disorder: Yes Hx Anxiety: Yes Hx Bipolar Disorder: Yes Hx Depression: Yes Hx Substance Use: No - SURGICAL HISTORY Hx Surgeries: Yes Hx Appendectomy: Yes Hx Cholecystectomy: Yes Other/Comment: trache 3 yrs ago - ANESTHESIA Hx Anesthesia: Yes Hx Anesthesia Reactions: No Hx Malignant Hyperthermia: No Meds Allergies/Adverse Reactions: Allergies Allergy/AdvReac Type Severity Reaction Status Date / Time aspirin Allergy ANAPHYLAXIS Verified 03/10/17 22:44 ceftriaxone sodium Allergy ANAPHYLAXIS Verified 03/10/17 22:44 [From Rocephin] ibuprofen [From Motrin] Allergy ANAPHYLAXIS Verified 03/10/17 22:44 iodine Allergy ANAPHYLAXIS Verified 03/10/17 22:44 raspberry Allergy ANAPHYLAXIS Verified 03/10/17 22:44 Physical Exam - Constitutional Appears: No Acute Distress, Chronically Ill - Head Exam Head Exam: ATRAUMATIC, NORMAL INSPECTION, NORMOCEPHALIC - Eye Exam Eye Exam: EOMI, Normal appearance, PERRL Pupil Exam: NORMAL ACCOMODATION, PERRL - Respiratory Exam Respiratory Exam: Decreased Breath Sounds, Rales, Rhonchi, Wheezes - Cardiovascular Exam Cardiovascular Exam: REGULAR RHYTHM, +S1, +S2 - GI/Abdominal Exam GI & Abdominal Exam: Normal Bowel Sounds, Soft. absent: Tenderness - Rectal Exam Rectal Exam: Deferred Results - Vital Signs Recent Vital Signs: Last Vital Signs Temp 98.1 F 03/11/17 15:30 Pulse 65 03/11/17 15:30 Resp 20 03/11/17 15:30 BP 114/72 03/11/17 15:30 Pulse Ox 100 03/11/17 15:30 - Labs Result Diagrams: 03/12/17 12:14 03/12/17 12:14 Labs: Laboratory Results - last 24 hr 03/10/17 03/10/17 03/10/17 22:49 23:20 23:20 WBC 18.3 H RBC 4.95 Hgb 13.4 D Hct 39.8 MCV 80.6 L MCH 27.1 MCHC 33.6 RDW 15.7 H Plt Count 138 MPV 9.1 Neut % (Auto) 71.6 Lymph % (Auto) 20.0 Perry % (Auto) 6.8 Eos % (Auto) 1.2 Baso % (Auto) 0.4 Neut # 13.1 H Lymph # 3.6 Perry # 1.2 H Eos # 0.2 Baso # 0.1 pO2 40 VBG pH 7.39 VBG pCO2 46 VBG HCO3 26.0 VBG Total CO2 29.2 H VBG O2 Sat (Calc) 78.0 H VBG Base Excess 2.2 H VBG Potassium 3.7 Sodium 142.0 Chloride 108.0 H Glucose 140 H Lactate 1.9 Potassium Carbon Dioxide Anion Gap BUN Creatinine Est GFR ( Amer) Est GFR (Non-Af Amer) POC Glucose (mg/dL) 131 H Random Glucose Calcium Total Bilirubin AST ALT Alkaline Phosphatase Total Protein Albumin Globulin Albumin/Globulin Ratio Venous Blood Potassium 3.7 03/10/17 03/11/17 03/11/17 23:20 06:48 11:41 WBC RBC Hgb Hct MCV MCH MCHC RDW Plt Count MPV Neut % (Auto) Lymph % (Auto) Perry % (Auto) Eos % (Auto) Baso % (Auto) Neut # Lymph # Perry # Eos # Baso # pO2 VBG pH VBG pCO2 VBG HCO3 VBG Total CO2 VBG O2 Sat (Calc) VBG Base Excess VBG Potassium Sodium 138 Chloride 102 Glucose Lactate Potassium 3.8 Carbon Dioxide 27 Anion Gap 14 BUN 14 Creatinine 0.9 Est GFR ( Amer) > 60 Est GFR (Non-Af Amer) > 60 POC Glucose (mg/dL) 332 H 353 H Random Glucose 145 H Calcium 8.8 Total Bilirubin 0.6 AST 17 ALT 22 Alkaline Phosphatase 147 H D Total Protein 8.1 Albumin 4.1 Globulin 4.1 H Albumin/Globulin Ratio 1.0 Venous Blood Potassium 03/11/17 03/11/17 17:09 21:07 WBC RBC Hgb Hct MCV MCH MCHC RDW Plt Count MPV Neut % (Auto) Lymph % (Auto) Perry % (Auto) Eos % (Auto) Baso % (Auto) Neut # Lymph # Perry # Eos # Baso # pO2 VBG pH VBG pCO2 VBG HCO3 VBG Total CO2 VBG O2 Sat (Calc) VBG Base Excess VBG Potassium Sodium Chloride Glucose Lactate Potassium Carbon Dioxide Anion Gap BUN Creatinine Est GFR ( Amer) Est GFR (Non-Af Amer) POC Glucose (mg/dL) 320 H 189 H Random Glucose Calcium Total Bilirubin AST ALT Alkaline Phosphatase Total Protein Albumin Globulin Albumin/Globulin Ratio Venous Blood Potassium Assessment & Plan (1) Tracheobronchitis Status: Acute (2) Asthma Status: Acute (3) COPD exacerbation Status: Acute
[2017-03-12] MEDS: guaiFENesin 200 mg/10 ml Syrup UD PO SCH ×6 (00:34→20:03)
[2017-03-12] MEDS: Piperacill/Tazo 3.375gm in Dex 3.375 GM/50 ML BAG IVPB SCH ×5 (00:48→23:59)
[2017-03-12] MEDS: Vancomycin 1 GM in Sodium Chloride 0.9% 200 ML IVPB SCH ×2 (00:48→14:04)
[2017-03-12] MEDS: Albuterol-Ipratrop 3 mg / 0.5 (3 ml) UD INH SCH ×4 (02:05→19:33)
[2017-03-12] MEDS: Oxycodone/Acetaminophen 5/325 mg Tab PO PRN ×3 (07:05→20:03)
[2017-03-12] MEDS: (Novolin R) Insulin Human Regular 100 units/ml vial SC SCH ×4 (07:42→21:49)
[2017-03-12] MEDS: Enoxaparin 40 mg Syringe SC SCH (09:23)
[2017-03-12] MEDS: Pantoprazole 20 mg EC Tab PO SCH (09:23)
[2017-03-12] MEDS: QUEtiapine 200 mg XR Tab PO SCH ×2 (09:24→21:48)
[2017-03-12 12:32] LABS: BASO % 0.2 % (0.0-2.0); EOS # 0.2 K/uL (0.0-0.7); EOS % 1.7 % (0.0-4.0); LYMPH # 2.4 K/uL (1.0-4.3); LYMPH % 23.4 % (20.0-40.0); MEAN CORPUSCULAR HEMOGLOBIN 27.6 pg (27.0-31.0); MEAN CORPUSCULAR HGB CONC 33.6 g/dL (33.0-37.0); MEAN PLATELET VOLUME 9.1 fL (7.2-11.7); MONO # 0.6 K/uL (0.0-0.8); MONO % 6.2 % (0.0-10.0); NEUT # 7.2 K/uL (1.8-7.0); NEUT % 68.5 % (50.0-75.0); NRBC % 0.1 % (0.0-2.0); RBC 3.92 Mil/uL (3.80-5.20); RED CELL DISTRIBUTION WIDTH 16.1 % (11.5-14.5); WHITE BLOOD COUNT 10.5 K/uL (4.8-10.8)
[2017-03-12 12:40] LABS: HEMOGLOBIN 10.8 g/dL (11.0-16.0)
[2017-03-12 12:57] LABS: BLOOD UREA NITROGEN 14 mg/dL (7-17); CALCIUM 7.9 mg/dl (8.6-10.4); GFR AFRICAN-AMERICAN > 60; GFR NON-AFRICAN AMERICAN 57
--- NOTE | 2017-03-12 14:24 | CARD ---
APPROVED REPORT EKG Measurement Heart [id number] <Conclusion> Sinus tachycardia Septal infarct, age undetermined Abnormal ECG
[2017-03-12] MEDS: Vitamins A & D Oint UD Foilpak TOP SCH (17:59)
[2017-03-12] MEDS ORDERED: Vitamins A & D Oint UD Foilpak TOP SCH (18:00)
--- NOTE | 2017-03-12 18:18 | CP.PCM.CON ---
History of Present Illness - History of Present Illness History of Present Illness: Patient is a 61 year old female with history of COPD/emphysema, chronic respiratory failure, tracheostomy, bronchiectasis, sleep apnea who presented on 03/10/17 for worsening shortness of breath that started in the morning. She was suctioned and placed on pressure support in the ED. Initial CXR revealed bilateral patchy opacities. She was recently admitted here on 02/27/17 for worsening shortness of breath and cough productive of yellow sputum. Today, she states that she is still short of breath. She reports she has a cough with thick beige sputum. She states she has not seen any blood in her sputum. She complains of right sided upper abdominal/chest wall pain radiating to her back along with epigastric/midsternal pain. She states that she experiences pain in her RUQ and back when she takes a deep breath. Associated with nausea, denies vomiting or diarrhea. States she experienced chills, denies fever. Also complains of diffuse pain all over her face, gums that it hurts to eat. Also complains of dizziness and bilateral knee and ankle pain. PMH: anxiety, asthma, COPD, emphysema,bronchiectasis, sleep apnea, CHF, HTN, bipolar disorder, depression, seizures disorder PSH: appendectomy, cholecystectomy, tracheostomy Family hx: unknown Home Meds: see MAR Allergies: ASA, Ceftriaxone, Ibuprofen, Iodine, raspberry - anaphylaxis PMD: Dr. Martin Assessment and plan 61 year old female with history of COPD/emphysema, chronic respiratory failure, tracheostomy, bronchiectasis, sleep apnea who presented on 03/10/17 for worsening shortness of breath that started in the morning. Pulmonology consulted for shortness of breath. COPD exacerbation, chronic respiratory failure hx of sleep apnea hx of tracheostomy 03/10/17 CXR No active disease. No significant interval change compared to the prior examination(s) Afebrile On trach collar, saturating well Blood culture pending Sputum (+) for Proteus Meds: Albuterol/Tiotropium 3ml INH R Q6 Robitussin 200mg PO Q4 Singulair 10mg PO Zosyn 3.375g IV Vancomycin 1 g IV Past Patient History - Infectious Disease Hx of Infectious Diseases: None - Tetanus Immunizations Tetanus Immunization: Unknown - Past Medical History & Family History Past Medical History?: Yes - Past Social History Smoking Status: Never Smoked - CARDIAC Hx Cardiac Disorders: Yes Hx Congestive Heart Failure: Yes Hx Hypercholesterolemia: No Hx Hypertension: Yes - PULMONARY Hx Respiratory Disorders: Yes Hx Asthma: Yes Hx Bronchitis: Yes Hx Chronic Obstructive Pulmonary Disease (COPD): Yes Hx Emphysema: Yes Hx Pneumonia: Yes Hx Sleep Apnea: Yes - NEUROLOGICAL Hx Neurological Disorder: Yes Hx Seizures: Yes - HEENT Hx HEENT Problems: Yes Hx Cataracts: Yes - RENAL Hx Chronic Kidney Disease: No - ENDOCRINE/METABOLIC Hx Endocrine Disorders: Yes Hx Hypothyroidism: No - HEMATOLOGICAL/ONCOLOGICAL Hx Blood Disorders: Yes Hx Human Immunodeficiency Virus (HIV): No - INTEGUMENTARY Hx Dermatological Problems: No - MUSCULOSKELETAL/RHEUMATOLOGICAL Hx Musculoskeletal Disorders: Yes Hx Arthritis: No Hx Falls: Yes Hx Rheumatoid Arthritis: No - GASTROINTESTINAL Hx Gastrointestinal Disorders: Yes Other/Comment: cholecystectomy - GENITOURINARY/GYNECOLOGICAL Hx Genitourinary Disorders: No Hx Sexually Transmitted Disorders: No - PSYCHIATRIC Hx Psychophysiologic Disorder: Yes Hx Anxiety: Yes Hx Bipolar Disorder: Yes Hx Depression: Yes Hx Substance Use: No - SURGICAL HISTORY Hx Surgeries: Yes Hx Appendectomy: Yes Hx Cholecystectomy: Yes Other/Comment: trache 3 yrs ago - ANESTHESIA Hx Anesthesia: Yes Hx Anesthesia Reactions: No Hx Malignant Hyperthermia: No Meds Allergies/Adverse Reactions: Allergies Allergy/AdvReac Type Severity Reaction Status Date / Time aspirin Allergy ANAPHYLAXIS Verified 03/10/17 22:44 ceftriaxone sodium Allergy ANAPHYLAXIS Verified 03/10/17 22:44 [From Rocephin] ibuprofen [From Motrin] Allergy ANAPHYLAXIS Verified 03/10/17 22:44 iodine Allergy ANAPHYLAXIS Verified 03/10/17 22:44 raspberry Allergy ANAPHYLAXIS Verified 03/10/17 22:44 - Medications Medications: Current Medications Albuterol/Ipratropium (Duoneb 3 Mg/0.5 Mg (3 Ml) Ud) 3 ml INH RQ6 [facility] Last Admin: 03/12/17 13:18 Dose: 3 ml Diphenhydramine HCl (Benadryl) 25 mg PO Q8H PRN PRN Reason: Allergy symptoms Last Admin: 03/11/17 12:48 Dose: 25 mg Enoxaparin Sodium (Lovenox) 40 mg SC DAILY [facility] Last Admin: 03/12/17 09:23 Dose: 40 mg Gabapentin (Neurontin) 800 mg PO TID [facility] Last Admin: 03/12/17 17:58 Dose: 800 mg Guaifenesin (Robitussin) 200 mg PO Q4H [facility] Last Admin: 03/12/17 17:58 Dose: 200 mg Vancomycin HCl 1 gm/ Sodium (Chloride) 200 mls @ 133.333 mls/hr IVPB Q12H [facility] Last Admin: 03/12/17 14:04 Dose: 133.333 mls/hr Piperacillin Sod/Tazobactam Sod (Zosyn 3.375 Gm Iv Premix) 3.375 gm in 50 mls @ 100 mls/hr IVPB Q6H [facility] Last Admin: 03/12/17 17:59 Dose: 100 mls/hr Insulin Glargine (Lantus) 30 unit SC [facility] Last Admin: 03/11/17 22:08 Dose: 30 units Insulin Human Regular (Novolin R) 0 unit SC [facility] PRN Reason: Protocol Last Admin: 03/12/17 17:58 Dose: 2 unit Lorazepam (Ativan) 2 mg PO TID PRN PRN Reason: Anxiety Last Admin: 03/12/17 14:08 Dose: 2 mg Montelukast Sodium (Singulair) 10 mg PO [facility] Last Admin: 03/11/17 22:00 Dose: 10 mg Oxycodone/Acetaminophen (Percocet 5/325 Mg Tab) 1 tab PO Q4H PRN PRN Reason: Pain, moderate (4-7) Stop: 03/14/17 03:34 Last Admin: 03/12/17 12:37 Dose: 1 tab Pantoprazole Sodium (Protonix Ec Tab) 20 mg PO DAILY [facility] Last Admin: 03/12/17 09:23 Dose: 20 mg Quetiapine Fumarate (Seroquel Xr) 400 mg PO Q12 [facility] Last Admin: 03/12/17 09:24 Dose: 400 mg Sertraline HCl (Zoloft) 100 mg PO [facility] Last Admin: 03/11/17 22:01 Dose: 100 mg Trazodone HCl (Desyrel) 150 mg PO [facility] Last Admin: 03/11/17 22:01 Dose: 150 mg Vitamin A (Vitamin A & D Oint Ud Foilpak) 1 ea TOP BID [facility] Last Admin: 03/12/17 17:59 Dose: 1 ea Results - Vital Signs Recent Vital Signs: Last Vital Signs Temp 98.2 F 03/12/17 15:00 Pulse 60 03/12/17 17:42 Resp 20 03/12/17 15:00 BP 98/59 L 03/12/17 15:00 Pulse Ox 100 03/12/17 15:00 - Labs Result Diagrams: 03/12/17 12:14 03/12/17 12:14 Labs: Laboratory Results - last 24 hr 03/11/17 03/12/17 03/12/17 21:07 06:19 11:15 WBC RBC Hgb Hct MCV MCH MCHC RDW Plt Count MPV Neut % (Auto) Lymph % (Auto) Ramsey % (Auto) Eos % (Auto) Baso % (Auto) Neut # Lymph # Ramsey # Eos # Baso # Differential Comment Sodium Potassium Chloride Carbon Dioxide Anion Gap BUN Creatinine Est GFR ( Amer) Est GFR (Non-Af Amer) POC Glucose (mg/dL) 189 H 105 177 H Random Glucose Calcium 03/12/17 03/12/17 03/12/17 12:14 12:14 16:29 WBC 10.5 RBC 3.92 Hgb 10.8 L D Hct 32.1 L MCV 82.0 MCH 27.6 MCHC 33.6 RDW 16.1 H Plt Count 111 L D MPV 9.1 Neut % (Auto) 68.5 Lymph % (Auto) 23.4 Ramsey % (Auto) 6.2 Eos % (Auto) 1.7 Baso % (Auto) 0.2 Neut # 7.2 H Lymph # 2.4 Ramsey # 0.6 Eos # 0.2 Baso # 0.0 Differential Comment Sodium 135 Potassium 3.8 Chloride 103 Carbon Dioxide 29 Anion Gap 7 L BUN 14 Creatinine 1.0 Est GFR ( Amer) > 60 Est GFR (Non-Af Amer) 57 POC Glucose (mg/dL) 163 H Random Glucose 186 H Calcium 7.9 L
[2017-03-12] MEDS: (Lantus) Insulin Glargine, Recombinant SC SCH (21:48)
--- NOTE | 2017-03-12 23:02 | CP.PCM.PN ---
Subjective - Date & Time of Evaluation Date of Evaluation: 03/12/17 Time of Evaluation: 16:40 - Subjective Subjective: Pt seen and examined, pt is doing better, she is afebrile, no chest pain, neg infiltrate in CXR Objective - Vital Signs/Intake and Output Vital Signs (last 24 hours): Temp Pulse Resp BP Pulse Ox 98.2 F 60 20 98/59 L 100 03/12/17 15:00 03/12/17 17:42 03/12/17 15:00 03/12/17 15:00 03/12/17 15:00 Intake and Output: 03/12/17 03/13/17 18:59 06:59 Intake Total 290 Balance 290 - Medications Medications: Current Medications Albuterol/Ipratropium (Duoneb 3 Mg/0.5 Mg (3 Ml) Ud) 3 ml INH RQ6 [facility] Last Admin: 03/12/17 19:33 Dose: 3 ml Diphenhydramine HCl (Benadryl) 25 mg PO Q8H PRN PRN Reason: Allergy symptoms Last Admin: 03/11/17 12:48 Dose: 25 mg Enoxaparin Sodium (Lovenox) 40 mg SC DAILY [facility] Last Admin: 03/12/17 09:23 Dose: 40 mg Gabapentin (Neurontin) 800 mg PO TID [facility] Last Admin: 03/12/17 17:58 Dose: 800 mg Guaifenesin (Robitussin) 200 mg PO Q4H [facility] Last Admin: 03/12/17 20:03 Dose: 200 mg Vancomycin HCl 1 gm/ Sodium (Chloride) 200 mls @ 133.333 mls/hr IVPB Q12H [facility] Last Admin: 03/12/17 14:04 Dose: 133.333 mls/hr Piperacillin Sod/Tazobactam Sod (Zosyn 3.375 Gm Iv Premix) 3.375 gm in 50 mls @ 100 mls/hr IVPB Q6H [facility] Last Admin: 03/12/17 17:59 Dose: 100 mls/hr Insulin Glargine (Lantus) 30 unit SC HS [facility] Last Admin: 03/12/17 21:48 Dose: 30 units Insulin Human Regular (Novolin R) 0 unit SC [facility] PRN Reason: Protocol Last Admin: 03/12/17 21:49 Dose: Not Given Lorazepam (Ativan) 2 mg PO TID PRN PRN Reason: Anxiety Last Admin: 03/12/17 14:08 Dose: 2 mg Montelukast Sodium (Singulair) 10 mg PO HS [facility] Last Admin: 03/12/17 21:48 Dose: 10 mg Oxycodone/Acetaminophen (Percocet 5/325 Mg Tab) 1 tab PO Q4H PRN PRN Reason: Pain, moderate (4-7) Stop: 03/14/17 03:34 Last Admin: 03/12/17 20:03 Dose: 1 tab Pantoprazole Sodium (Protonix Ec Tab) 20 mg PO DAILY [facility] Last Admin: 03/12/17 09:23 Dose: 20 mg Quetiapine Fumarate (Seroquel Xr) 400 mg PO Q12 [facility] Last Admin: 03/12/17 21:48 Dose: 400 mg Sertraline HCl (Zoloft) 100 mg PO [facility] Last Admin: 03/11/17 22:01 Dose: 100 mg Trazodone HCl (Desyrel) 150 mg PO [facility] Last Admin: 03/12/17 21:48 Dose: 150 mg Vitamin A (Vitamin A & D Oint Ud Foilpak) 1 ea TOP BID [facility] Last Admin: 03/12/17 17:59 Dose: 1 ea - Labs Labs: 03/12/17 12:14 03/12/17 12:14 - Constitutional Appears: No Acute Distress - Eye Exam Eye Exam: EOMI, Normal appearance, PERRL Pupil Exam: NORMAL ACCOMODATION, PERRL - Respiratory Exam Respiratory Exam: Decreased Breath Sounds, Clear to Ausculation Bilateral - Cardiovascular Exam Cardiovascular Exam: REGULAR RHYTHM, +S1, +S2. absent: Murmur - GI/Abdominal Exam GI & Abdominal Exam: Soft, Normal Bowel Sounds. absent: Tenderness Assessment and Plan (1) Tracheobronchitis Status: Acute (2) Asthma Status: Acute (3) COPD exacerbation Status: Acute
[2017-03-13] MEDS: guaiFENesin 200 mg/10 ml Syrup UD PO SCH ×7 (00:05→23:53)
[2017-03-13] MEDS: Vancomycin 1 GM in Sodium Chloride 0.9% 200 ML IVPB SCH ×2 (00:34→12:00)
[2017-03-13] MEDS: Albuterol-Ipratrop 3 mg / 0.5 (3 ml) UD INH SCH ×4 (01:08→20:04)
[2017-03-13] MEDS: Piperacill/Tazo 3.375gm in Dex 3.375 GM/50 ML BAG IVPB SCH ×4 (05:51→23:53)
[2017-03-13] MEDS: (Novolin R) Insulin Human Regular 100 units/ml vial SC SCH ×4 (07:47→21:43)
[2017-03-13] MEDS: Enoxaparin 40 mg Syringe SC SCH (09:03)
[2017-03-13] MEDS: Vitamins A & D Oint UD Foilpak TOP SCH ×2 (09:03→18:02)
[2017-03-13] MEDS: Pantoprazole 20 mg EC Tab PO SCH (09:04)
[2017-03-13] MEDS: QUEtiapine 200 mg XR Tab PO SCH ×2 (09:04→21:12)
[2017-03-13] MEDS: Oxycodone/Acetaminophen 5/325 mg Tab PO PRN ×2 (10:35→21:10)
--- NOTE | 2017-03-13 12:55 | CP.PCM.PN ---
Subjective - Date & Time of Evaluation Date of Evaluation: 03/13/17 Time of Evaluation: 17:45 - Subjective Subjective: Pt is feeling better, afebrile, coughing whhezing, i added mucomyst in her regimen c/o sputum production Objective - Vital Signs/Intake and Output Vital Signs (last 24 hours): Temp Pulse Resp BP Pulse Ox 98.7 F 71 20 110/69 99 03/13/17 07:45 03/13/17 07:45 03/13/17 07:45 03/13/17 07:45 03/13/17 07:45 Intake and Output: 03/13/17 03/13/17 06:59 18:59 Intake Total 290 Balance 290 - Medications Medications: Current Medications Albuterol/Ipratropium (Duoneb 3 Mg/0.5 Mg (3 Ml) Ud) 3 ml INH RQ6 [facility] Last Admin: 03/13/17 08:02 Dose: 3 ml Diphenhydramine HCl (Benadryl) 25 mg PO Q8H PRN PRN Reason: Allergy symptoms Last Admin: 03/13/17 09:03 Dose: 25 mg Enoxaparin Sodium (Lovenox) 40 mg SC DAILY [facility] Last Admin: 03/13/17 09:03 Dose: 40 mg Gabapentin (Neurontin) 800 mg PO TID [facility] Last Admin: 03/13/17 09:05 Dose: 800 mg Guaifenesin (Robitussin) 200 mg PO Q4H [facility] Last Admin: 03/13/17 12:20 Dose: 200 mg Vancomycin HCl 1 gm/ Sodium (Chloride) 200 mls @ 133.333 mls/hr IVPB Q12H [facility] Last Admin: 03/13/17 12:00 Dose: 133.333 mls/hr Piperacillin Sod/Tazobactam Sod (Zosyn 3.375 Gm Iv Premix) 3.375 gm in 50 mls @ 100 mls/hr IVPB Q6H [facility] Last Admin: 03/13/17 11:30 Dose: 100 mls/hr Insulin Glargine (Lantus) 30 unit SC HS [facility] Last Admin: 03/12/17 21:48 Dose: 30 units Insulin Human Regular (Novolin R) 0 unit SC A[facility]S [facility] PRN Reason: Protocol Last Admin: 03/13/17 11:48 Dose: 3 unit Lorazepam (Ativan) 2 mg PO TID PRN PRN Reason: Anxiety Last Admin: 03/13/17 09:03 Dose: 2 mg Montelukast Sodium (Singulair) 10 mg PO [facility] Last Admin: 03/12/17 21:48 Dose: 10 mg Oxycodone/Acetaminophen (Percocet 5/325 Mg Tab) 1 tab PO Q4H PRN PRN Reason: Pain, moderate (4-7) Stop: 03/14/17 03:34 Last Admin: 03/13/17 10:35 Dose: 1 tab Pantoprazole Sodium (Protonix Ec Tab) 20 mg PO DAILY [facility] Last Admin: 03/13/17 09:04 Dose: 20 mg Quetiapine Fumarate (Seroquel Xr) 400 mg PO Q12 [facility] Last Admin: 03/13/17 09:04 Dose: 400 mg Sertraline HCl (Zoloft) 100 mg PO [facility] Last Admin: 03/11/17 22:01 Dose: 100 mg Trazodone HCl (Desyrel) 150 mg PO [facility] Last Admin: 03/12/17 21:48 Dose: 150 mg Vitamin A (Vitamin A & D Oint Ud Foilpak) 1 ea TOP BID [facility] Last Admin: 03/13/17 09:03 Dose: 1 ea - Labs Labs: 03/12/17 12:14 03/12/17 12:14 - Constitutional Appears: No Acute Distress - Head Exam Head Exam: ATRAUMATIC, NORMAL INSPECTION, NORMOCEPHALIC - Eye Exam Eye Exam: EOMI, Normal appearance, PERRL Pupil Exam: NORMAL ACCOMODATION, PERRL - Respiratory Exam Respiratory Exam: Decreased Breath Sounds, Wheezes - Cardiovascular Exam Cardiovascular Exam: REGULAR RHYTHM, +S1, +S2. absent: Murmur - GI/Abdominal Exam GI & Abdominal Exam: Soft, Normal Bowel Sounds. absent: Tenderness - Rectal Exam Rectal Exam: Deferred Assessment and Plan (1) Tracheobronchitis Status: Acute (2) Asthma Status: Acute (3) COPD exacerbation Status: Acute
[2017-03-13] MEDS: (Lantus) Insulin Glargine, Recombinant SC SCH (21:42)
[2017-03-14] MEDS: Vancomycin 1 GM in Sodium Chloride 0.9% 200 ML IVPB SCH ×2 (00:48→12:31)
[2017-03-14] MEDS: Albuterol-Ipratrop 3 mg / 0.5 (3 ml) UD INH SCH ×4 (01:46→19:39)
[2017-03-14] MEDS: Piperacill/Tazo 3.375gm in Dex 3.375 GM/50 ML BAG IVPB SCH ×4 (05:29→23:52)
[2017-03-14] MEDS: guaiFENesin 200 mg/10 ml Syrup UD PO SCH ×6 (05:29→23:52)
[2017-03-14] MEDS ORDERED: Oxycodone/Acetaminophen 5/325 mg Tab PO STA (06:27)
[2017-03-14] MEDS: (Novolin R) Insulin Human Regular 100 units/ml vial SC SCH ×4 (08:15→21:47)
[2017-03-14] MEDS: Pantoprazole 20 mg EC Tab PO SCH (10:29)
[2017-03-14] MEDS: Enoxaparin 40 mg Syringe SC SCH (10:29)
[2017-03-14] MEDS: QUEtiapine 200 mg XR Tab PO SCH ×2 (10:31→21:47)
[2017-03-14] MEDS: Vitamins A & D Oint UD Foilpak TOP SCH ×2 (10:32→17:25)
[2017-03-14] MEDS: Oxycodone/Acetaminophen 5/325 mg Tab PO PRN ×2 (11:19→19:00)
--- NOTE | 2017-03-14 15:46 | CP.PCM.PN ---
Subjective - Date & Time of Evaluation Date of Evaluation: 03/14/17 Time of Evaluation: 10:45 - Subjective Subjective: 61 year old female with history of COPD/emphysema, chronic respiratory failure, tracheostomy, bronchiectasis, sleep apnea who presented on 03/10/17 for worsening shortness of breath that started in the morning. Pulmonology consulted for shortness of breath. COPD exacerbation, chronic respiratory failure with hx of sleep apnea and hx of tracheostomy 03/10/17 CXR No active disease. No significant interval change compared to the prior examination(s) Afebrile On trach collar at FiO2 28%, saturating 95% Blood culture prelim report: GP cocci in clusters and Staph aureus and coag neg Staph Sputum (+) for Proteus - sensitive to Zosyn Meds: Albuterol/Tiotropium 3ml INH R Q6 Benadryl 25mg PO Q8 hours Robitussin 200mg PO Q4 Solumedrol 60mg Q 12 Singulair 10mg PO Zosyn 3.375g IV Objective - Vital Signs/Intake and Output Vital Signs (last 24 hours): Temp Pulse Resp BP Pulse Ox 98.2 F 63 18 117/75 95 03/14/17 07:40 03/14/17 07:40 03/14/17 07:40 03/14/17 07:40 03/14/17 07:40 Intake and Output: 03/14/17 03/14/17 06:59 18:59 Intake Total 290 Balance 290 - Medications Medications: Current Medications Albuterol/Ipratropium (Duoneb 3 Mg/0.5 Mg (3 Ml) Ud) 3 ml INH RQ6 [facility] Last Admin: 03/14/17 13:26 Dose: 3 ml Diphenhydramine HCl (Benadryl) 25 mg PO Q8H PRN PRN Reason: Allergy symptoms Last Admin: 03/13/17 09:03 Dose: 25 mg Enoxaparin Sodium (Lovenox) 40 mg SC DAILY [facility] Last Admin: 03/14/17 10:29 Dose: 40 mg Gabapentin (Neurontin) 800 mg PO TID [facility] Last Admin: 03/14/17 14:16 Dose: 800 mg Guaifenesin (Robitussin) 200 mg PO Q4H [facility] Last Admin: 03/14/17 14:15 Dose: 200 mg Vancomycin HCl 1 gm/ Sodium (Chloride) 200 mls @ 133.333 mls/hr IVPB Q12H [facility] Last Admin: 03/14/17 12:31 Dose: 133.333 mls/hr Piperacillin Sod/Tazobactam Sod (Zosyn 3.375 Gm Iv Premix) 3.375 gm in 50 mls @ 100 mls/hr IVPB Q6H [facility] Last Admin: 03/14/17 11:18 Dose: 100 mls/hr Insulin Glargine (Lantus) 30 unit SC [facility] Last Admin: 03/13/17 21:42 Dose: 30 units Insulin Human Regular (Novolin R) 0 unit SC [facility] PRN Reason: Protocol Last Admin: 03/14/17 12:43 Dose: 8 unit Lorazepam (Ativan) 2 mg PO TID PRN PRN Reason: Anxiety Last Admin: 03/14/17 10:35 Dose: 2 mg Methylprednisolone (Solu-Medrol) 60 mg IV Q12 [facility] Last Admin: 03/14/17 10:29 Dose: 60 mg Montelukast Sodium (Singulair) 10 mg PO [facility] Last Admin: 03/13/17 21:13 Dose: 10 mg Oxycodone/Acetaminophen (Percocet 5/325 Mg Tab) 1 tab PO Q4H PRN PRN Reason: Pain, moderate (4-7) Stop: 03/17/17 10:56 Last Admin: 03/14/17 11:19 Dose: 1 tab Pantoprazole Sodium (Protonix Ec Tab) 20 mg PO DAILY [facility] Last Admin: 03/14/17 10:29 Dose: 20 mg Quetiapine Fumarate (Seroquel Xr) 400 mg PO Q12 [facility] Last Admin: 03/14/17 10:31 Dose: 400 mg Sertraline HCl (Zoloft) 100 mg PO [facility] Last Admin: 03/13/17 21:12 Dose: 100 mg Trazodone HCl (Desyrel) 150 mg PO [facility] Last Admin: 03/13/17 21:12 Dose: 150 mg Vitamin A (Vitamin A & D Oint Ud Foilpak) 1 ea TOP BID [facility] Last Admin: 03/14/17 10:32 Dose: 1 ea - Labs Labs: 03/12/17 12:14 03/12/17 12:14
[2017-03-14 17:05] VITALS: RESP 20
[2017-03-14] MEDS: (Lantus) Insulin Glargine, Recombinant SC SCH (21:49)
--- NOTE | 2017-03-14 22:45 | CP.PCM.PN ---
Subjective - Date & Time of Evaluation Date of Evaluation: 03/14/17 Time of Evaluation: 17:50 - Subjective Subjective: Pt is seen and evaluated, less congested, less distressed , thick secretions in tracheostomy tube, she is for LINDSEY, antibiotics and medical managements Objective - Vital Signs/Intake and Output Vital Signs (last 24 hours): Temp Pulse Resp BP Pulse Ox 98.2 F 63 20 148/88 96 03/14/17 15:00 03/14/17 16:00 03/14/17 15:00 03/14/17 15:00 03/14/17 15:00 - Medications Medications: Current Medications Albuterol/Ipratropium (Duoneb 3 Mg/0.5 Mg (3 Ml) Ud) 3 ml INH RQ6 [facility] Last Admin: 03/14/17 19:39 Dose: 3 ml Diphenhydramine HCl (Benadryl) 25 mg PO Q8H PRN PRN Reason: Allergy symptoms Last Admin: 03/13/17 09:03 Dose: 25 mg Enoxaparin Sodium (Lovenox) 40 mg SC DAILY [facility] Last Admin: 03/14/17 10:29 Dose: 40 mg Gabapentin (Neurontin) 800 mg PO TID [facility] Last Admin: 03/14/17 17:25 Dose: 800 mg Guaifenesin (Robitussin) 200 mg PO Q4H [facility] Last Admin: 03/14/17 21:44 Dose: 200 mg Vancomycin HCl 1 gm/ Sodium (Chloride) 200 mls @ 133.333 mls/hr IVPB Q12H [facility] Last Admin: 03/14/17 12:31 Dose: 133.333 mls/hr Piperacillin Sod/Tazobactam Sod (Zosyn 3.375 Gm Iv Premix) 3.375 gm in 50 mls @ 100 mls/hr IVPB Q6H [facility] Last Admin: 03/14/17 17:25 Dose: 100 mls/hr Insulin Glargine (Lantus) 30 unit SC HS [facility] Last Admin: 03/14/17 21:49 Dose: 30 units Insulin Human Regular (Novolin R) 0 unit SC ACHS [facility] PRN Reason: Protocol Last Admin: 03/14/17 21:47 Dose: Not Given Lorazepam (Ativan) 2 mg PO TID PRN PRN Reason: Anxiety Last Admin: 03/14/17 10:35 Dose: 2 mg Methylprednisolone (Solu-Medrol) 60 mg IV Q12 [facility] Last Admin: 03/14/17 21:46 Dose: 60 mg Montelukast Sodium (Singulair) 10 mg PO HS [facility] Last Admin: 03/14/17 21:45 Dose: 10 mg Nystatin (Nystop Topical Powder) 1 applic TOP BID [facility] Last Admin: 03/14/17 19:07 Dose: 1 applic Oxycodone/Acetaminophen (Percocet 5/325 Mg Tab) 1 tab PO Q4H PRN PRN Reason: Pain, moderate (4-7) Stop: 03/17/17 10:56 Last Admin: 03/14/17 19:00 Dose: 1 tab Pantoprazole Sodium (Protonix Ec Tab) 20 mg PO DAILY [facility] Last Admin: 03/14/17 10:29 Dose: 20 mg Quetiapine Fumarate (Seroquel Xr) 400 mg PO Q12 [facility] Last Admin: 03/14/17 21:47 Dose: 400 mg Sertraline HCl (Zoloft) 100 mg PO [facility] Last Admin: 03/14/17 21:45 Dose: 100 mg Trazodone HCl (Desyrel) 150 mg PO [facility] Last Admin: 03/14/17 21:45 Dose: 150 mg Vitamin A (Vitamin A & D Oint Ud Foilpak) 1 ea TOP BID [facility] Last Admin: 03/14/17 17:25 Dose: 1 ea - Labs Labs: 03/12/17 12:14 03/12/17 12:14 - Constitutional Appears: No Acute Distress, Chronically Ill - Head Exam Head Exam: ATRAUMATIC, NORMAL INSPECTION, NORMOCEPHALIC - Respiratory Exam Respiratory Exam: Decreased Breath Sounds, Rales, Rhonchi, Wheezes - Cardiovascular Exam Cardiovascular Exam: REGULAR RHYTHM, +S1, +S2. absent: Murmur - GI/Abdominal Exam GI & Abdominal Exam: Soft, Normal Bowel Sounds. absent: Tenderness Assessment and Plan (1) Tracheobronchitis Status: Acute (2) Asthma Status: Acute (3) COPD exacerbation Status: Acute
[2017-03-15] MEDS: Vancomycin 1 GM in Sodium Chloride 0.9% 200 ML IVPB SCH ×2 (00:24→12:48)
[2017-03-15] MEDS: Albuterol-Ipratrop 3 mg / 0.5 (3 ml) UD INH SCH ×4 (02:34→20:19)
[2017-03-15] MEDS: guaiFENesin 200 mg/10 ml Syrup UD PO SCH ×5 (04:05→22:03)
[2017-03-15] MEDS: Piperacill/Tazo 3.375gm in Dex 3.375 GM/50 ML BAG IVPB SCH ×3 (05:56→17:54)
[2017-03-15 07:25] LABS: HEMOGLOBIN 11.9 g/dL (11.0-16.0); LYMPH # 1.1 K/uL (1.0-4.3); LYMPH % 6.2 % (20.0-40.0); MEAN CELL VOLUME 81.6 fL (81.0-99.0); MEAN CORPUSCULAR HEMOGLOBIN 27.4 pg (27.0-31.0); MEAN CORPUSCULAR HGB CONC 33.6 g/dL (33.0-37.0); MEAN PLATELET VOLUME 8.8 fL (7.2-11.7); MONO # 0.5 K/uL (0.0-0.8); MONO % 2.7 % (0.0-10.0); NEUT # 16.1 K/uL (1.8-7.0); NEUT % 91.1 % (50.0-75.0); PLATELET COUNT 121 K/uL (130-400); RBC 4.36 Mil/uL (3.80-5.20); RED CELL DISTRIBUTION WIDTH 15.1 % (11.5-14.5); WHITE BLOOD COUNT 17.7 K/uL (4.8-10.8)
[2017-03-15 07:43] LABS: BLOOD UREA NITROGEN 17 mg/dL (7-17); CALCIUM 9.1 mg/dl (8.6-10.4); GFR AFRICAN-AMERICAN > 60; GFR NON-AFRICAN AMERICAN > 60
[2017-03-15] MEDS: (Novolin R) Insulin Human Regular 100 units/ml vial SC SCH ×4 (08:07→22:06)
[2017-03-15] MEDS: Oxycodone/Acetaminophen 5/325 mg Tab PO PRN ×2 (08:08→22:04)
[2017-03-15 08:46] LABS: ANISOCYTOSIS SLIGHT; LYMPHOCYTE 10 % (20-40); MONOCYTE 3 % (0-10); NEUTROPHIL 87 % (50-75); PLATELET ESTIMATE SLIGHTLY DECREASED (NORMAL); TOTAL CELLS COUNTED 100
[2017-03-15 08:53] LABS: HYPOCHROMIC SLIGHT; POLYCHROMIC SLIGHT
[2017-03-15] MEDS: Enoxaparin 40 mg Syringe SC SCH (10:11)
[2017-03-15] MEDS: Vitamins A & D Oint UD Foilpak TOP SCH ×2 (10:11→17:54)
[2017-03-15] MEDS: QUEtiapine 200 mg XR Tab PO SCH ×2 (10:39→22:20)
[2017-03-15] MEDS: Pantoprazole 20 mg EC Tab PO SCH (10:58)
--- NOTE | 2017-03-15 17:04 | CP.PCM.PN ---
Subjective - Date & Time of Evaluation Date of Evaluation: 03/15/17 Time of Evaluation: 08:45 - Subjective Subjective: Patient seen and examined at bedside. Currently on trach collar - saturating well. She is being suctioned regularly and does not appear to be in respiratory distress. Assessment and plan 61 year old female with history of COPD/emphysema, chronic respiratory failure, tracheostomy, bronchiectasis, sleep apnea who presented on 03/10/17 for worsening shortness of breath that started in the morning. Pulmonology consulted for shortness of breath. COPD exacerbation, chronic respiratory failure with hx of sleep apnea and hx of tracheostomy 03/10/17 CXR No active disease. No significant interval change compared to the prior examination(s) Afebrile On trach collar at FiO2 28%, saturating 96% Blood culture : (+) coagulase-negative Staphylococcus - sensitive to Vancomycin Sputum (+) for Proteus - sensitive to Zosyn Meds: Albuterol/Tiotropium 3ml INH R Q6 Benadryl 25mg PO Q8 hours Robitussin 200mg PO Q4 Solumedrol 60mg IV Q 12 Singulair 10mg PO Zosyn 3.375g IV Vancomycin 1 g IV Objective - Vital Signs/Intake and Output Vital Signs (last 24 hours): Temp Pulse Resp BP Pulse Ox 98.3 F 80 20 171/93 H 96 03/15/17 15:00 03/15/17 15:00 03/15/17 15:00 03/15/17 15:00 03/15/17 15:00 Intake and Output: 03/15/17 03/15/17 06:59 18:59 Intake Total 370 Balance 370 - Medications Medications: Current Medications Albuterol/Ipratropium (Duoneb 3 Mg/0.5 Mg (3 Ml) Ud) 3 ml INH RQ6 [facility] Last Admin: 03/15/17 14:05 Dose: 3 ml Diphenhydramine HCl (Benadryl) 25 mg PO Q8H PRN PRN Reason: Allergy symptoms Last Admin: 03/13/17 09:03 Dose: 25 mg Enoxaparin Sodium (Lovenox) 40 mg SC DAILY [facility] Last Admin: 03/15/17 10:11 Dose: 40 mg Gabapentin (Neurontin) 800 mg PO TID [facility] Last Admin: 03/15/17 14:07 Dose: 800 mg Guaifenesin (Robitussin) 200 mg PO Q4H [facility] Last Admin: 03/15/17 12:48 Dose: 200 mg Vancomycin HCl 1 gm/ Sodium (Chloride) 200 mls @ 133.333 mls/hr IVPB Q12H [facility] Last Admin: 03/15/17 12:48 Dose: 133.333 mls/hr Piperacillin Sod/Tazobactam Sod (Zosyn 3.375 Gm Iv Premix) 3.375 gm in 50 mls @ 100 mls/hr IVPB Q6H [facility] Last Admin: 03/15/17 12:00 Dose: 100 mls/hr Insulin Glargine (Lantus) 30 unit SC [facility] Last Admin: 03/14/17 21:49 Dose: 30 units Insulin Human Regular (Novolin R) 0 unit SC [facility] PRN Reason: Protocol Last Admin: 03/15/17 12:47 Dose: 6 unit Lorazepam (Ativan) 2 mg PO TID PRN PRN Reason: Anxiety Last Admin: 03/15/17 08:09 Dose: 2 mg Methylprednisolone (Solu-Medrol) 60 mg IV Q12 [facility] Last Admin: 03/15/17 10:11 Dose: 60 mg Montelukast Sodium (Singulair) 10 mg PO [facility] Last Admin: 03/14/17 21:45 Dose: 10 mg Nystatin (Nystop Topical Powder) 1 applic TOP BID [facility] Last Admin: 03/15/17 10:37 Dose: 1 applic Oxycodone/Acetaminophen (Percocet 5/325 Mg Tab) 1 tab PO Q4H PRN PRN Reason: Pain, moderate (4-7) Stop: 03/17/17 10:56 Last Admin: 03/15/17 08:08 Dose: 1 tab Pantoprazole Sodium (Protonix Ec Tab) 20 mg PO DAILY [facility] Last Admin: 03/15/17 10:58 Dose: 20 mg Quetiapine Fumarate (Seroquel Xr) 400 mg PO Q12 [facility] Last Admin: 03/15/17 10:39 Dose: 400 mg Sertraline HCl (Zoloft) 100 mg PO [facility] Last Admin: 03/14/17 21:45 Dose: 100 mg Trazodone HCl (Desyrel) 150 mg PO [facility] Last Admin: 01/17/18 21:45 Dose: 150 mg Vitamin A (Vitamin A & D Oint Ud Foilpak) 1 ea TOP BID [facility] Last Admin: 03/15/17 10:11 Dose: 1 ea - Labs Labs: 03/15/17 07:10 03/15/17 07:10
--- NOTE | 2017-03-15 17:12 | CP.PCM.PN ---
Subjective - Date & Time of Evaluation Date of Evaluation: 03/15/17 Time of Evaluation: 14:00 Objective - Vital Signs/Intake and Output Vital Signs (last 24 hours): Temp Pulse Resp BP Pulse Ox 98.3 F 80 20 171/93 H 96 03/15/17 15:00 03/15/17 15:00 03/15/17 15:00 03/15/17 15:00 03/15/17 15:00 Intake and Output: 03/15/17 03/15/17 06:59 18:59 Intake Total 370 Balance 370 - Medications Medications: Current Medications Albuterol/Ipratropium (Duoneb 3 Mg/0.5 Mg (3 Ml) Ud) 3 ml INH RQ6 [facility] Last Admin: 03/15/17 14:05 Dose: 3 ml Diphenhydramine HCl (Benadryl) 25 mg PO Q8H PRN PRN Reason: Allergy symptoms Last Admin: 03/13/17 09:03 Dose: 25 mg Enoxaparin Sodium (Lovenox) 40 mg SC DAILY [facility] Last Admin: 03/15/17 10:11 Dose: 40 mg Gabapentin (Neurontin) 800 mg PO TID [facility] Last Admin: 03/15/17 14:07 Dose: 800 mg Guaifenesin (Robitussin) 200 mg PO Q4H [facility] Last Admin: 03/15/17 12:48 Dose: 200 mg Vancomycin HCl 1 gm/ Sodium (Chloride) 200 mls @ 133.333 mls/hr IVPB Q12H [facility] Last Admin: 03/15/17 12:48 Dose: 133.333 mls/hr Piperacillin Sod/Tazobactam Sod (Zosyn 3.375 Gm Iv Premix) 3.375 gm in 50 mls @ 100 mls/hr IVPB Q6H [facility] Last Admin: 03/15/17 12:00 Dose: 100 mls/hr Insulin Glargine (Lantus) 30 unit SC HS [facility] Last Admin: 03/14/17 21:49 Dose: 30 units Insulin Human Regular (Novolin R) 0 unit SC A[facility]S [facility] PRN Reason: Protocol Last Admin: 03/15/17 12:47 Dose: 6 unit Lorazepam (Ativan) 2 mg PO TID PRN PRN Reason: Anxiety Last Admin: 03/15/17 08:09 Dose: 2 mg Methylprednisolone (Solu-Medrol) 60 mg IV Q12 [facility] Last Admin: 03/15/17 10:11 Dose: 60 mg Montelukast Sodium (Singulair) 10 mg PO HS [facility] Last Admin: 03/14/17 21:45 Dose: 10 mg Nystatin (Nystop Topical Powder) 1 applic TOP BID [facility] Last Admin: 03/15/17 10:37 Dose: 1 applic Oxycodone/Acetaminophen (Percocet 5/325 Mg Tab) 1 tab PO Q4H PRN PRN Reason: Pain, moderate (4-7) Stop: 03/17/17 10:56 Last Admin: 03/15/17 08:08 Dose: 1 tab Pantoprazole Sodium (Protonix Ec Tab) 20 mg PO DAILY [facility] Last Admin: 03/15/17 10:58 Dose: 20 mg Quetiapine Fumarate (Seroquel Xr) 400 mg PO Q12 [facility] Last Admin: 03/15/17 10:39 Dose: 400 mg Sertraline HCl (Zoloft) 100 mg PO [facility] Last Admin: 03/14/17 21:45 Dose: 100 mg Trazodone HCl (Desyrel) 150 mg PO [facility] Last Admin: 03/14/17 21:45 Dose: 150 mg Vitamin A [facility] 1 ea TOP BID [facility] Last Admin: 03/15/17 10:11 Dose: 1 ea - Labs Labs: 03/15/17 07:10 03/15/17 07:10
--- NOTE | 2017-03-15 21:17 | CP.PCM.PN ---
Subjective - Date & Time of Evaluation Date of Evaluation: 03/15/17 Time of Evaluation: 22:00 - Subjective Subjective: Pt seen and examined at bedside Objective - Vital Signs/Intake and Output Vital Signs (last 24 hours): Temp Pulse Resp BP Pulse Ox 98.3 F 80 20 171/93 H 96 03/15/17 15:00 03/15/17 15:00 03/15/17 15:00 03/15/17 15:00 03/15/17 15:00 - Medications Medications: Current Medications Albuterol/Ipratropium (Duoneb 3 Mg/0.5 Mg (3 Ml) Ud) 3 ml INH RQ6 [facility] Last Admin: 03/15/17 20:19 Dose: 3 ml Diphenhydramine HCl (Benadryl) 25 mg PO Q8H PRN PRN Reason: Allergy symptoms Last Admin: 03/13/17 09:03 Dose: 25 mg Enoxaparin Sodium (Lovenox) 40 mg SC DAILY [facility] Last Admin: 03/15/17 10:11 Dose: 40 mg Gabapentin (Neurontin) 800 mg PO TID [facility] Last Admin: 03/15/17 17:54 Dose: 800 mg Guaifenesin (Robitussin) 200 mg PO Q4H [facility] Last Admin: 03/15/17 17:55 Dose: 200 mg Vancomycin HCl 1 gm/ Sodium (Chloride) 200 mls @ 133.333 mls/hr IVPB Q12H [facility] Last Admin: 03/15/17 12:48 Dose: 133.333 mls/hr Piperacillin Sod/Tazobactam Sod (Zosyn 3.375 Gm Iv Premix) 3.375 gm in 50 mls @ 100 mls/hr IVPB Q6H [facility] Last Admin: 03/15/17 17:54 Dose: 100 mls/hr Insulin Glargine (Lantus) 30 unit SC HS [facility] Last Admin: 03/14/17 21:49 Dose: 30 units Insulin Human Regular (Novolin R) 0 unit SC ACHS [facility] PRN Reason: Protocol Last Admin: 03/15/17 17:53 Dose: 4 unit Lorazepam (Ativan) 2 mg PO TID PRN PRN Reason: Anxiety Last Admin: 03/15/17 08:09 Dose: 2 mg Methylprednisolone (Solu-Medrol) 60 mg IV Q12 [facility] Last Admin: 03/15/17 10:11 Dose: 60 mg Montelukast Sodium (Singulair) 10 mg PO HS [facility] Last Admin: 03/14/17 21:45 Dose: 10 mg Nystatin (Nystop Topical Powder) 1 applic TOP BID [facility] Last Admin: 03/15/17 10:37 Dose: 1 applic Oxycodone/Acetaminophen (Percocet 5/325 Mg Tab) 1 tab PO Q4H PRN PRN Reason: Pain, moderate (4-7) Stop: 03/17/17 10:56 Last Admin: 03/15/17 08:08 Dose: 1 tab Pantoprazole Sodium (Protonix Ec Tab) 20 mg PO DAILY [facility] Last Admin: 03/15/17 10:58 Dose: 20 mg Quetiapine Fumarate (Seroquel Xr) 400 mg PO Q12 [facility] Last Admin: 03/15/17 10:39 Dose: 400 mg Sertraline HCl (Zoloft) 100 mg PO [facility] Last Admin: 03/14/17 21:45 Dose: 100 mg Trazodone HCl (Desyrel) 150 mg PO [facility] Last Admin: 03/14/17 21:45 Dose: 150 mg Vitamin A (Vitamin A & D Oint Ud Foilpak) 1 ea TOP BID [facility] Last Admin: 03/15/17 17:54 Dose: 1 ea - Labs Labs: 03/15/17 07:10 03/15/17 07:10 Assessment and Plan (1) Tracheobronchitis Status: Acute (2) Asthma Status: Acute (3) COPD exacerbation Status: Acute
[2017-03-15] MEDS: (Lantus) Insulin Glargine, Recombinant SC SCH (22:03)
[2017-03-16] MEDS: guaiFENesin 200 mg/10 ml Syrup UD PO SCH ×5 (00:06→16:11)
[2017-03-16] MEDS: Piperacill/Tazo 3.375gm in Dex 3.375 GM/50 ML BAG IVPB SCH ×3 (00:06→17:37)
[2017-03-16] MEDS: Vancomycin 1 GM in Sodium Chloride 0.9% 200 ML IVPB SCH ×2 (00:57→12:34)
[2017-03-16] MEDS: Albuterol-Ipratrop 3 mg / 0.5 (3 ml) UD INH SCH ×4 (01:22→21:16)
[2017-03-16] MEDS: Oxycodone/Acetaminophen 5/325 mg Tab PO PRN (05:32)
[2017-03-16] MEDS: (Novolin R) Insulin Human Regular 100 units/ml vial SC SCH ×3 (08:25→16:16)
[2017-03-16] MEDS: Enoxaparin 40 mg Syringe SC SCH (10:49)
[2017-03-16] MEDS: Pantoprazole 20 mg EC Tab PO SCH (10:50)
[2017-03-16] MEDS: Vitamins A & D Oint UD Foilpak TOP SCH ×2 (10:50→17:37)
[2017-03-16] MEDS: QUEtiapine 200 mg XR Tab PO SCH (10:51)
[2017-03-16 16:47] VITALS: PULSE 62
[2017-03-16 17:04] VITALS: BP 156/79; TEMP 98.9
--- NOTE | 2017-03-16 22:55 | CP.PCM.PN ---
Subjective - Date & Time of Evaluation Date of Evaluation: 03/16/17 Time of Evaluation: 16:00 - Subjective Subjective: Pt is afebrile, feels better, less cough, les short of breath, thick yellow mucous in tracheostomy Objective - Vital Signs/Intake and Output Vital Signs (last 24 hours): Temp Pulse Resp BP Pulse Ox 98.9 F 62 20 156/79 H 97 03/16/17 15:03 03/16/17 16:43 03/16/17 15:03 03/16/17 15:03 03/16/17 15:03 - Medications Medications: Current Medications Albuterol/Ipratropium (Duoneb 3 Mg/0.5 Mg (3 Ml) Ud) 3 ml INH RQ6 [facility] Last Admin: 03/16/17 21:16 Dose: 3 ml Diphenhydramine HCl (Benadryl) 25 mg PO Q8H PRN PRN Reason: Allergy symptoms Last Admin: 03/16/17 19:28 Dose: 25 mg Enoxaparin Sodium (Lovenox) 40 mg SC DAILY [facility] Last Admin: 03/16/17 10:49 Dose: 40 mg Gabapentin (Neurontin) 800 mg PO TID [facility] Last Admin: 03/16/17 17:37 Dose: 800 mg Guaifenesin (Robitussin) 200 mg PO Q4H [facility] Last Admin: 03/16/17 16:11 Dose: 200 mg Vancomycin HCl 1 gm/ Sodium (Chloride) 200 mls @ 133.333 mls/hr IVPB Q12H [facility] Last Admin: 03/16/17 12:34 Dose: 133.333 mls/hr Piperacillin Sod/Tazobactam Sod (Zosyn 3.375 Gm Iv Premix) 3.375 gm in 50 mls @ 100 mls/hr IVPB Q6H [facility] Last Admin: 03/16/17 17:37 Dose: 100 mls/hr Insulin Glargine (Lantus) 30 unit SC HS [facility] Last Admin: 03/15/17 22:03 Dose: 30 units Insulin Human Regular (Novolin R) 0 unit SC ACHS [facility] PRN Reason: Protocol Last Admin: 03/16/17 16:16 Dose: 8 unit Lorazepam (Ativan) 2 mg PO TID PRN PRN Reason: Anxiety Last Admin: 03/16/17 00:06 Dose: 2 mg Methylprednisolone (Solu-Medrol) 60 mg IV Q12 [facility] Last Admin: 03/16/17 10:49 Dose: 60 mg Montelukast Sodium (Singulair) 10 mg PO [facility] Last Admin: 03/15/17 22:03 Dose: 10 mg Nystatin (Nystop Topical Powder) 1 applic TOP BID [facility] Last Admin: 03/16/17 17:37 Dose: 1 applic Oxycodone/Acetaminophen (Percocet 5/325 Mg Tab) 1 tab PO Q4H PRN PRN Reason: Pain, moderate (4-7) Stop: 03/17/17 10:56 Last Admin: 03/16/17 05:32 Dose: 1 tab Pantoprazole Sodium (Protonix Ec Tab) 20 mg PO DAILY [facility] Last Admin: 03/16/17 10:50 Dose: 20 mg Quetiapine Fumarate (Seroquel Xr) 400 mg PO Q12 [facility] Last Admin: 03/16/17 10:51 Dose: 400 mg Sertraline HCl (Zoloft) 100 mg PO [facility] Last Admin: 03/15/17 22:02 Dose: 100 mg Trazodone HCl (Desyrel) 150 mg PO [facility] Last Admin: 03/15/17 22:03 Dose: 150 mg Vitamin A (Vitamin A & D Oint Ud Foilpak) 1 ea TOP BID [facility] Last Admin: 03/16/17 17:37 Dose: 1 ea - Labs Labs: 03/15/17 07:10 03/15/17 07:10 - Constitutional Appears: No Acute Distress, Chronically Ill - Head Exam Head Exam: ATRAUMATIC, NORMAL INSPECTION, NORMOCEPHALIC - Eye Exam Eye Exam: EOMI, Normal appearance, PERRL Pupil Exam: NORMAL ACCOMODATION, PERRL - Respiratory Exam Respiratory Exam: Decreased Breath Sounds, Rales, Rhonchi - Cardiovascular Exam Cardiovascular Exam: REGULAR RHYTHM, +S1, +S2. absent: Murmur - GI/Abdominal Exam GI & Abdominal Exam: Soft, Normal Bowel Sounds. absent: Tenderness - Rectal Exam Rectal Exam: Deferred - Extremities Exam Extremities Exam: Full ROM, Normal Capillary Refill, Normal Inspection. absent : Joint Swelling, Pedal Edema - Neurological Exam Neurological Exam: Alert, Awake, CN II-XII Intact, Normal Gait, Oriented x3 Assessment and Plan (1) Tracheobronchitis Assessment & Plan: med managment taper steroids frequent suctioning antibiotics Status: Acute (2) Asthma Status: Acute (3) COPD exacerbation Status: Acute
[2017-03-17 13:58] VITALS: O2SAT 100
== END 2017-03-16 21:00 | disposition home health service (06) | DRG 882 ==
LOC: C.ER 22:31 → C.9E 23:51 → C.6T 03-11 01:39
PROVIDERS: ADMIT Internal Medicine; ATTEND Internal Medicine
PROC: 5A1945Z Respiratory Ventilation, 24-96 Consecutive Hours (ICD-10-PCS; principal; 2017-03-10)
DX: J18.9 Pneumonia, unspecified organism (principal); J96.10 Chronic respiratory failure, unspecified whether with hypoxia or hypercapnia; Z93.0 Tracheostomy status; I11.0 Hypertensive heart disease with heart failure; I50.9 Heart failure, unspecified; J44.0 Chronic obstructive pulmonary disease with (acute) lower respiratory infection; J44.1 Chronic obstructive pulmonary disease with (acute) exacerbation; G47.30 Sleep apnea, unspecified; F31.9 Bipolar disorder, unspecified; J40 Bronchitis, not specified as acute or chronic; G40.901 Epilepsy, unspecified, not intractable, with status epilepticus; Z68.42 Body mass index [BMI] 45.0-49.9, adult

== ENCOUNTER 2017-04-26 22:23 | Inpatient (IN) | payer OTHER ==
[2017-04-26 22:24] VITALS: BMI 45.6
[2017-04-26] MEDS ORDERED: Albuterol-Ipratrop 3 mg / 0.5 (3 ml) UD INH STA ×3 (23:13→23:14)
--- NOTE | 2017-04-26 23:18 | C.PDOC ---
History Of Present Illness 61yo female, with history of COPD and tracheostomy, presents to ER for evaluation of shortness of breath. Patient has been taking nebulizer treatments with no relief of symptoms. No fever, chills, chest pain. No other complaints. Time Seen by Provider: 04/26/17 23:12 Chief Complaint (Nursing): Shortness Of Breath History Per: Patient History/Exam Limitations: no limitations Onset/Duration Of Symptoms: Days Current Symptoms Are (Timing): Still Present Associated Symptoms: denies: Fever, Chest Pain Past Medical History Reviewed: Historical Data, Nursing Documentation, Vital Signs Vital Signs: Last Vital Signs Temp Pulse 109 H 04/26/17 22:36 Resp 26 H 04/26/17 22:49 BP 152/89 H 04/26/17 22:36 Pulse Ox 96 04/27/17 03:29 - Medical History PMH: Anxiety, Asthma, Bipolar Disorder, Bronchitis, CHF, COPD, Depression, Emphysema, HTN, Pneumonia, Seizures, Sleep Apnea Denies: Arthritis, HIV, Hypercholesterolemia, Hypothyroidism, Chronic Kidney Disease, Rheumatoid Arthritis, Sexually Transmitted Disease Surgical History: Appendectomy, Cholecystectomy - [facility] Procedures ASSISTANCE WITH RESPIRATORY VENTILATION, <24 HRS, CPAP (03/14/16) CENTRAL VENOUS CATHETER PLACEMENT WITH GUIDANCE (10/24/14) CHANGE TRACHEOSTOMY DEVICE IN TRACHEA, EXTERNAL APPROACH (08/25/16) CONTINUOUS INVASIVE MECHANICAL VENTILATION <96 CONSEC HRS (03/07/14) ENTERAL INFUSION OF CONCENTRATED NUT. SUBSTANCES (09/17/12) INSERT ENDOTRACHEAL TUBE (09/17/12) INSERTION OF INFUSION DEV INTO SUP VENA CAVA, PERC APPROACH (12/03/15) INTRODUCE OF OTH THERAP SUBST INTO RESP TRACT, VIA OPENING (05/03/15) NEBULIZER THERAPY (09/17/12) RESPIRATORY VENTILATION, 24-96 CONSECUTIVE HOURS (03/10/17) RESPIRATORY VENTILATION, GREATER THAN 96 CONSECUTIVE HOURS (02/27/17) Family History: States: Unknown Family Hx - Social History Hx Tobacco Use: No Hx Alcohol Use: No Hx Substance Use: No - Immunization History Hx Tetanus Toxoid Vaccination: No Hx Influenza Vaccination: No Hx Pneumococcal Vaccination: No Review Of Systems Except As Marked, All Systems Reviewed And Found Negative. Constitutional: Negative for: Fever, Chills Cardiovascular: Negative for: Chest Pain Respiratory: Positive for: Shortness of Breath Physical Exam - Physical Exam Appears: Non-toxic Skin: Normal Color, Warm, Dry Head: Normacephalic Eye(s): bilateral: Normal Inspection Neck: Normal ROM, Supple, Other (tracheostomy patent) Chest: Symmetrical Cardiovascular: Rhythm Regular Respiratory: Rhonchi (bilateral), Wheezing (bilateral) Neurological/Psych: Oriented x3, Normal Speech, Normal Cognition ED Course And Treatment - Laboratory Results Result Diagrams: 04/26/17 23:30 04/26/17 23:30 O2 Sat by Pulse Oximetry: 96 (RA) Pulse Ox Interpretation: Normal Medical Decision Making Medical Decision Making: Impression: SOB in setting of COPD Plan: -- Labs -- CXR -- Duoneb 3ml INH x 3 Time: 0250 EXAM: CT Chest Without Intravenous Contrast CLINICAL HISTORY: 61 years old, female; Signs and symptoms; Shortness of breath; Additional info: Sob/ tracheostomy TECHNIQUE: Axial computed tomography images of the chest without intravenous contrast. All CT scans at this facility use one or more dose reduction techniques, viz.: automated exposure control; ma/kV adjustment per patient size (including targeted exams where dose is matched to indication; i.e. head); or iterative reconstruction technique. Coronal and sagittal reformatted images were created and reviewed. COMPARISON: No relevant prior studies available. FINDINGS: Limitations: Lack of intravenous contrast. Motion artifact - mild to moderate. Lungs: Mild linear atelectasis/scarring. Mild central groundglass opacities along bronchovascular bundle of right upper, right lower, left lower lobes. No consolidation. Pleural space: No pneumothorax. No significant effusion. Heart: Borderline cardiomegaly. No significant pericardial effusion. Coronary artery calcifications. Mediastinum: Small hiatal hernia. Bones/joints: No acute fracture. Soft tissues: Unremarkable. Vasculature: Minimal atherosclerotic disease. Lymph nodes: No pathologically enlarged lymph nodes. Gallbladder and bile ducts: Gallbladder not visualized. Tubes, lines and devices: Tracheostomy tube. IMPRESSION: 1. Peribronchial ground opacities. Consider inflammatory or infectious etiologies. 2. Incidental/non-acute findings are described above. Disposition Discussed With : Ad Khan Doctor Will See Patient In The: Hospital Counseled Patient/Family Regarding: Diagnosis - Disposition Disposition: HOSPITALIZED Disposition Time: 02:51 Condition: STABLE - Clinical Impression Clinical Impression: Chr obstructive pulmonary disease w/ acute lower respiratory infxn, COPD exacerbation - Scribe Statement The provider has reviewed the documentation as recorded by the Scribe (Jeana Singh) Provider Attestation: All medical record entries made by the Scribe were at my direction and personally dictated by me. I have reviewed the chart and agree that the record accurately reflects my personal performance of the history, physical exam, medical decision making, and the department course for this patient. I have also personally directed, reviewed, and agree with the discharge instructions and disposition.
[2017-04-26 23:32] LABS: BASO # 0.1 K/uL (0.0-0.2); BASO % 0.6 % (0.0-2.0); EOS # 0.2 K/uL (0.0-0.7); EOS % 1.2 % (0.0-4.0); HEMOGLOBIN 13.1 g/dL (11.0-16.0); LYMPH % 20.5 % (20.0-40.0); MEAN CELL VOLUME 80.6 fL (81.0-99.0); MEAN CORPUSCULAR HEMOGLOBIN 27.2 pg (27.0-31.0); MEAN CORPUSCULAR HGB CONC 33.7 g/dL (33.0-37.0); MEAN PLATELET VOLUME 8.2 fL (7.2-11.7); MONO # 1.1 K/uL (0.0-0.8); MONO % 7.2 % (0.0-10.0); NEUT # 10.2 K/uL (1.8-7.0); NEUT % 70.5 % (50.0-75.0); NRBC % 0.1 % (0.0-2.0); RBC 4.82 Mil/uL (3.80-5.20); RED CELL DISTRIBUTION WIDTH 14.8 % (11.5-14.5); WHITE BLOOD COUNT 14.5 K/uL (4.8-10.8)
[2017-04-26 23:44] LABS: ALB/GLOB RATIO 0.9 (1.0-2.1); ALBUMIN 3.9 g/dL (3.5-5.0); ALT/SGPT 25 U/L (9-52); AST/SGOT 17 U/L (14-36); BLOOD UREA NITROGEN 15 mg/dL (7-17); CALCIUM 9.4 mg/dl (8.6-10.4); GFR AFRICAN-AMERICAN > 60; GFR NON-AFRICAN AMERICAN > 60
[2017-04-26] MEDS ORDERED: Albuterol-Ipratrop 3 mg / 0.5 (3 ml) UD ONE ×3 (23:45→23:46)
[2017-04-26 23:53] LABS: B-TYPE NATRIURETIC PEPTIDE 81.9 pg/mL (0-900)
--- NOTE | 2017-04-27 02:46 | CT ---
EXAM: CT Chest Without Intravenous Contrast CLINICAL HISTORY: 61 years old, female; Signs and symptoms; Shortness of breath; Additional info: Sob/ tracheostomy TECHNIQUE: Axial computed tomography images of the chest without intravenous contrast. All CT scans at this facility use one or more dose reduction techniques, viz.: automated exposure control; ma/kV adjustment per patient size (including targeted exams where dose is matched to indication; i.e. head); or iterative reconstruction technique. Coronal and sagittal reformatted images were created and reviewed. COMPARISON: No relevant prior studies available. FINDINGS: Limitations: Lack of intravenous contrast. Motion artifact - mild to moderate. Lungs: Mild linear atelectasis/scarring. Mild central groundglass opacities along bronchovascular bundle of right upper, right lower, left lower lobes. No consolidation. Pleural space: No pneumothorax. No significant effusion. Heart: Borderline cardiomegaly. No significant pericardial effusion. Coronary artery calcifications. Mediastinum: Small hiatal hernia. Bones/joints: No acute fracture. Soft tissues: Unremarkable. Vasculature: Minimal atherosclerotic disease. Lymph nodes: No pathologically enlarged lymph nodes. Gallbladder and bile ducts: Gallbladder not visualized. Tubes, lines and devices: Tracheostomy tube. IMPRESSION: 1. Peribronchial ground opacities. Consider inflammatory or infectious etiologies. 2. Incidental/non-acute findings are described above.
[2017-04-27] MEDS ORDERED: Azithromycin 500mg/250ML NS 500 MG/250 ML BAG IV STA (02:49)
[2017-04-27] MEDS ORDERED: Moxifloxacin IV 400mg/250ml NS 400 MG/250 ML BAG IVPB ONE ×2 (02:53→03:32)
[2017-04-27] MEDS: guaiFENesin 200 mg/10 ml Syrup UD PO SCH ×5 (04:38→20:00)
[2017-04-27] MEDS: Oxycodone/Acetaminophen 5/325 mg Tab PO PRN (05:32)
[2017-04-27] MEDS ORDERED: Albuterol-Ipratrop 3 mg / 0.5 (3 ml) UD INH STA (06:07)
--- NOTE | 2017-04-27 07:39 | RAD ---
Chest x-ray single frontal view History: Shortness of breath. Comparison: 02/27/2017 Findings: Tracheostomy tube in place. Moderate venous congestion. Bibasilar airspace opacities. Cardiomegaly. Upper lobe granulomatous changes. Degenerative changes in the spine shoulders. Impression: Tracheostomy tube in place. Moderate venous congestion. Bibasilar airspace opacities. Cardiomegaly.
[2017-04-27] MEDS ORDERED: Albuterol-Ipratrop 3 mg / 0.5 (3 ml) UD INH SCH (08:00)
[2017-04-27] MEDS ORDERED: MethylPREDNISolone 40 mg Vial IVP STA (08:20)
[2017-04-27] MEDS ORDERED: Magnesium Sulfate 1 gm in D5W 1 GM/100 ML BAG IVPB ONE (08:24)
[2017-04-27 08:39] LABS: ARTERIAL BLOOD GAS HCO3 22.5 mmol/L (21-28); ARTERIAL BLOOD GAS PCO2 45 mm/Hg (35-45); ARTERIAL BLOOD GAS PH 7.32 (7.35-7.45); ARTERIAL BLOOD GAS PO2 111 mm/Hg (80-100); ARTERIAL BLOOD GAS TCO2 24.6 mmol/L (22-28)
[2017-04-27] MEDS ORDERED: Racepinephrine 2.25% Inhal Soln 0.5 ML UD INH ONE (08:53)
[2017-04-27] MEDS: Enoxaparin 40 mg Syringe SC SCH (09:09)
[2017-04-27] MEDS: (Novolog) Insulin Aspart, Recombinant 100 u/ml 10 ml vial SC SCH ×4 (09:10→22:00)
--- NOTE | 2017-04-27 09:35 | RAD ---
HISTORY: stridor COMPARISON: Chest x-ray performed 04/26/17 TECHNIQUE: Chest, one view. FINDINGS: Face mask obscures evaluation of the lung apices. Tracheostomy tube. LUNGS: Mild interstitial prominence may reflect infection or edema. Patchy consolidation in the right medial upper lobe and streaky patchy opacities in the left hilar regions, possibly infiltrate. CARDIOVASCULAR: Cardiomegaly. OSSEOUS STRUCTURES: Degenerative changes. VISUALIZED UPPER ABDOMEN: Unremarkable. OTHER FINDINGS: None. IMPRESSION: Tracheostomy tube. Cardiomegaly. Mild interstitial prominence may reflect infection or edema. Patchy consolidation in the right medial upper lobe and streaky patchy opacities in the left hilar regions, possibly infiltrate.
[2017-04-27] MEDS ORDERED: Propofol 10 mg/ml 1,000 MG/100 ML VIAL IV PRN (09:47)
--- NOTE | 2017-04-27 10:13 | CP.PCM.CON ---
History of Present Illness - History of Present Illness History of Present Illness: CT Surgery: Dr Mckeon Pt is a 61F with hx of COPd and tracheostomy. Pt has multiple presentations to for SOB. Current admission on 04/26. Pt had rapid called today for respiratory distress and desaturation. Was reconnected to a ventilator and transferred to ICU. CT Sx consulted for evaluation for potential tracheal stenosis . Review of Systems - Review of Systems Systems not reviewed;Unavailable: Altered Mental Status (sedated), Intubated Past Patient History - Infectious Disease Hx of Infectious Diseases: None - Tetanus Immunizations Tetanus Immunization: Unknown - Past Medical History & Family History Past Medical History?: Yes - Past Social History Smoking Status: Unknown If Ever Smoked - CARDIAC Hx Cardiac Disorders: Yes Hx Congestive Heart Failure: Yes Hx Hypercholesterolemia: No Hx Hypertension: Yes - PULMONARY Hx Respiratory Disorders: Yes Hx Asthma: Yes Hx Bronchitis: Yes Hx Chronic Obstructive Pulmonary Disease (COPD): Yes Hx Emphysema: Yes Hx Pneumonia: Yes Hx Sleep Apnea: Yes - NEUROLOGICAL Hx Neurological Disorder: Yes Hx Seizures: Yes - HEENT Hx HEENT Problems: Yes Hx Cataracts: Yes - RENAL Hx Chronic Kidney Disease: No - ENDOCRINE/METABOLIC Hx Endocrine Disorders: Yes Hx Hypothyroidism: No - HEMATOLOGICAL/ONCOLOGICAL Hx Blood Disorders: No Hx Human Immunodeficiency Virus (HIV): No - INTEGUMENTARY Hx Dermatological Problems: No - MUSCULOSKELETAL/RHEUMATOLOGICAL Hx Musculoskeletal Disorders: Yes Hx Arthritis: No Hx Falls: Yes Hx Rheumatoid Arthritis: No Hx Unsteady Gait: Yes - GASTROINTESTINAL Hx Gastrointestinal Disorders: Yes Other/Comment: cholecystectomy - GENITOURINARY/GYNECOLOGICAL Hx Genitourinary Disorders: No Hx Sexually Transmitted Disorders: No - PSYCHIATRIC Hx Psychophysiologic Disorder: Yes Hx Anxiety: Yes Hx Bipolar Disorder: Yes Hx Depression: Yes Hx Substance Use: No - SURGICAL HISTORY Hx Surgeries: Yes Hx Appendectomy: Yes Hx Cholecystectomy: Yes - ANESTHESIA Hx Anesthesia: Yes Hx Anesthesia Reactions: No Hx Malignant Hyperthermia: No Has any member of the family had a problem w/ anesthesia?: No Meds Allergies/Adverse Reactions: Allergies Allergy/AdvReac Type Severity Reaction Status Date / Time aspirin Allergy ANAPHYLAXIS Verified 04/26/17 22:40 ceftriaxone sodium Allergy ANAPHYLAXIS Verified 04/26/17 22:40 [From Rocephin] ibuprofen [From Motrin] Allergy ANAPHYLAXIS Verified 04/26/17 22:40 iodine Allergy ANAPHYLAXIS Verified 04/26/17 22:40 raspberry Allergy ANAPHYLAXIS Verified 04/26/17 22:40 - Medications Medications: Current Medications Albuterol/Ipratropium (Duoneb 3 Mg/0.5 Mg (3 Ml) Ud) 3 ml INH RQ4 [facility] Enoxaparin Sodium (Lovenox) 40 mg SC DAILY [facility] Last Admin: 04/27/17 09:09 Dose: 40 mg Gabapentin (Neurontin) 800 mg PO TID [facility] Guaifenesin (Robitussin) 200 mg PO Q4H [facility] Last Admin: 04/27/17 09:12 Dose: Not Given Azithromycin 500 mg/ Sodium (Chloride) 250 mls @ 250 mls/hr IVPB DAILY [facility] Stop: 05/01/17 10:00 Propofol (Diprivan) 1,000 mg in 100 mls @ 3.946 mls/hr IV .Q24H PRN; Protocol; 5 MCG/KG/MIN PRN Reason: TITRATE PER MD ORDER Insulin Aspart (Novolog) 0 unit SC ACHS [facility] PRN Reason: Protocol Last Admin: 04/27/17 09:10 Dose: 5 unit Insulin Glargine (Lantus) 30 unit SC HS [facility] Lidocaine HCl (Lidocaine 2% 20ml Vial) 20 ml INFIL ONCE ONE Stop: 04/27/17 10:16 Lorazepam (Ativan) 2 mg PO TID PRN PRN Reason: Anxiety Last Admin: 04/27/17 05:32 Dose: 2 mg Montelukast Sodium (Singulair) 10 mg PO HS [facility] Nystatin (Nystop Topical Powder) 1 applic TOP BID [facility] Oxycodone/Acetaminophen (Percocet 5/325 Mg Tab) 1 tab PO Q4H PRN PRN Reason: Pain, moderate (4-7) Stop: 04/30/17 03:54 Last Admin: 04/27/17 05:32 Dose: 1 tab Pantoprazole Sodium (Protonix Ec Tab) 20 mg PO DAILY [facility] Prednisone (Prednisone Tab) 30 mg PO DAILY [facility] Last Admin: 04/27/17 09:17 Dose: Not Given Quetiapine Fumarate (Seroquel Xr) 400 mg PO Q12 [facility] Sertraline HCl (Zoloft) 100 mg PO HS [facility] Trazodone HCl (Desyrel) 150 mg PO HS [facility] Physical Exam - Constitutional Appears: Non-toxic - Eye Exam Eye Exam: Normal appearance - Respiratory Exam Respiratory Exam: absent: Accessory Muscle Use, Respiratory Distress Additional comments: on ventilator via tracheostomy - Cardiovascular Exam Cardiovascular Exam: REGULAR RHYTHM. absent: Tachycardia - Skin Skin Exam: Normal Color, Warm Results - Vital Signs Recent Vital Signs: Last Vital Signs Temp 98.5 F 04/27/17 05:45 Pulse 98 H 04/27/17 07:33 Resp 23 04/27/17 07:33 BP 140/80 04/27/17 05:45 Pulse Ox 99 04/27/17 05:45 - Labs Result Diagrams: 04/26/17 23:30 04/26/17 23:30 Labs: Laboratory Results - last 24 hr 04/26/17 04/26/17 04/27/17 23:30 23:30 07:35 WBC 14.5 H RBC 4.82 Hgb 13.1 Hct 38.8 MCV 80.6 L MCH 27.2 MCHC 33.7 RDW 14.8 H Plt Count 140 MPV 8.2 Neut % (Auto) 70.5 Lymph % (Auto) 20.5 [place] % (Auto) 7.2 Eos % (Auto) 1.2 Baso % (Auto) 0.6 Neut # (Auto) 10.2 H Lymph # (Auto) 3.0 [place] # (Auto) 1.1 H Eos # (Auto) 0.2 Baso # (Auto) 0.1 Puncture Site pCO2 pO2 HCO3 ABG pH ABG Total CO2 ABG O2 Saturation ABG Base Excess Rob Test ABG Potassium A-a O2 Difference Respiratory Index Glucose Lactate FiO2 Crit Value Called To Crit Value Called By Crit Value Read Back Blood Gas Notified Time Sodium 141 Potassium 3.9 Chloride 104 Carbon Dioxide 24 Anion Gap 17 BUN 15 Creatinine 0.8 Est GFR ( Amer) > 60 Est GFR (Non-Af Amer) > 60 POC Glucose (mg/dL) 314 H Random Glucose 196 H Calcium 9.4 Total Bilirubin 0.6 AST 17 ALT 25 Alkaline Phosphatase 182 H D NT-Pro-B Natriuret Pep 81.9 Total Protein 8.3 Albumin 3.9 Globulin 4.3 H Albumin/Globulin Ratio 0.9 L Arterial Blood Potassium 04/27/17 04/27/17 08:25 08:35 WBC RBC Hgb Hct MCV MCH MCHC RDW Plt Count MPV Neut % (Auto) Lymph % (Auto) [place] % (Auto) Eos % (Auto) Baso % (Auto) Neut # (Auto) Lymph # (Auto) [place] # (Auto) Eos # (Auto) Baso # (Auto) Puncture Site Rb pCO2 45 pO2 111 H HCO3 22.5 ABG pH 7.32 L ABG Total CO2 24.6 ABG O2 Saturation 99.0 H ABG Base Excess -3.1 L Rob Test Na ABG Potassium 4.8 A-a O2 Difference 118.0 Respiratory Index 1.1 Glucose 461 H* D Lactate 3.3 H FiO2 40.0 Crit Value Called To Dr rylee gilman Crit Value Called By Cherie cadena enterprise architect manager Crit Value Read Back Y Blood Gas Notified Time 840 Sodium 140.0 Potassium Chloride 106.0 Carbon Dioxide Anion Gap BUN Creatinine Est GFR ( Amer) Est GFR (Non-Af Amer) POC Glucose (mg/dL) 364 H Random Glucose Calcium Total Bilirubin AST ALT Alkaline Phosphatase NT-Pro-B Natriuret Pep Total Protein Albumin Globulin Albumin/Globulin Ratio Arterial Blood Potassium 4.8 Assessment & Plan - Assessment and Plan (Free Text) Assessment: 61F with potential tracheal stenosis Plan: CT of neck to eval for tracheal stenosis will d/w Dr Mckeon when CT results further recs to follow Chyna, PGY3
[2017-04-27] MEDS ORDERED: Lidocaine 2% Inj (20ml) INFIL ONE (10:15)
--- NOTE | 2017-04-27 10:27 | CP.PCM.CON ---
History of Present Illness - History of Present Illness History of Present Illness: Pulmonary consult; covering Dr Rosado Reason for consult: COPD/Asthma The Patient was seen and examined at the bedside, Medical records reviewed, and management issues were discussed and formulated with the house staff. Mrs Moser is a 61 year old female with a PMHx of COPD and tracheostomy. Patient presented to the ED on 04/26 for evaluation of shortness of breath. Most recent chest XR on 04/27 shows Tracheostomy tube. Cardiomegaly. Mild interstitial prominence may reflect infection or edema. Patchy consolidation in the right medial upper lobe and streaky patchy opacities in the left hilar regions, possibly infiltrate. Chest CT on 04/27 shows Peribronchial ground opacities. Consider inflammatory or infectious etiologies. Admission labs show leukocytosis (14.5) . Past Patient History - Infectious Disease Hx of Infectious Diseases: None - Tetanus Immunizations Tetanus Immunization: Unknown - Past Medical History & Family History Past Medical History?: Yes - Past Social History Smoking Status: Unknown If Ever Smoked - CARDIAC Hx Cardiac Disorders: Yes Hx Congestive Heart Failure: Yes Hx Hypercholesterolemia: No Hx Hypertension: Yes - PULMONARY Hx Respiratory Disorders: Yes Hx Asthma: Yes Hx Bronchitis: Yes Hx Chronic Obstructive Pulmonary Disease (COPD): Yes Hx Emphysema: Yes Hx Pneumonia: Yes Hx Sleep Apnea: Yes - NEUROLOGICAL Hx Neurological Disorder: Yes Hx Seizures: Yes - HEENT Hx HEENT Problems: Yes Hx Cataracts: Yes - RENAL Hx Chronic Kidney Disease: No - ENDOCRINE/METABOLIC Hx Endocrine Disorders: Yes Hx Hypothyroidism: No - HEMATOLOGICAL/ONCOLOGICAL Hx Blood Disorders: No Hx Human Immunodeficiency Virus (HIV): No - INTEGUMENTARY Hx Dermatological Problems: No - MUSCULOSKELETAL/RHEUMATOLOGICAL Hx Musculoskeletal Disorders: Yes Hx Arthritis: No Hx Falls: Yes Hx Rheumatoid Arthritis: No Hx Unsteady Gait: Yes - GASTROINTESTINAL Hx Gastrointestinal Disorders: Yes Other/Comment: cholecystectomy - GENITOURINARY/GYNECOLOGICAL Hx Genitourinary Disorders: No Hx Sexually Transmitted Disorders: No - PSYCHIATRIC Hx Psychophysiologic Disorder: Yes Hx Anxiety: Yes Hx Bipolar Disorder: Yes Hx Depression: Yes Hx Substance Use: No - SURGICAL HISTORY Hx Surgeries: Yes Hx Appendectomy: Yes Hx Cholecystectomy: Yes - ANESTHESIA Hx Anesthesia: Yes Hx Anesthesia Reactions: No Hx Malignant Hyperthermia: No Has any member of the family had a problem w/ anesthesia?: No Meds Allergies/Adverse Reactions: Allergies Allergy/AdvReac Type Severity Reaction Status Date / Time aspirin Allergy ANAPHYLAXIS Verified 04/26/17 22:40 ceftriaxone sodium Allergy ANAPHYLAXIS Verified 04/26/17 22:40 [From Rocephin] ibuprofen [From Motrin] Allergy ANAPHYLAXIS Verified 04/26/17 22:40 iodine Allergy ANAPHYLAXIS Verified 04/26/17 22:40 raspberry Allergy ANAPHYLAXIS Verified 04/26/17 22:40 - Medications Medications: Current Medications Albuterol/Ipratropium (Duoneb 3 Mg/0.5 Mg (3 Ml) Ud) 3 ml INH RQ4 [facility] Enoxaparin Sodium (Lovenox) 40 mg SC DAILY [facility] Last Admin: 04/27/17 09:09 Dose: 40 mg Gabapentin (Neurontin) 800 mg PO TID [facility] Guaifenesin (Robitussin) 200 mg PO Q4H [facility] Last Admin: 04/27/17 09:12 Dose: Not Given Azithromycin 500 mg/ Sodium (Chloride) 250 mls @ 250 mls/hr IVPB DAILY [facility] Stop: 05/01/17 10:00 Propofol (Diprivan) 1,000 mg in 100 mls @ 3.946 mls/hr IV .Q24H PRN; Protocol; 5 MCG/KG/MIN PRN Reason: TITRATE PER MD ORDER Last Admin: 04/27/17 10:17 Dose: 10 mcg/kg/min, 7.893 mls/hr Insulin Aspart (Novolog) 0 unit SC ACHS [facility] PRN Reason: Protocol Last Admin: 04/27/17 09:10 Dose: 5 unit Insulin Glargine (Lantus) 30 unit SC HS [facility] Lidocaine HCl (Lidocaine 2% 20ml Vial) 20 ml INFIL ONCE ONE Stop: 04/27/17 10:16 Lorazepam (Ativan) 2 mg PO TID PRN PRN Reason: Anxiety Last Admin: 04/27/17 05:32 Dose: 2 mg Montelukast Sodium (Singulair) 10 mg PO HS [facility] Nystatin (Nystop Topical Powder) 1 applic TOP BID [facility] Oxycodone/Acetaminophen (Percocet 5/325 Mg Tab) 1 tab PO Q4H PRN PRN Reason: Pain, moderate (4-7) Stop: 04/30/17 03:54 Last Admin: 04/27/17 05:32 Dose: 1 tab Pantoprazole Sodium (Protonix Ec Tab) 20 mg PO DAILY [facility] Prednisone (Prednisone Tab) 30 mg PO DAILY [facility] Last Admin: 04/27/17 09:17 Dose: Not Given Quetiapine Fumarate (Seroquel Xr) 400 mg PO Q12 [facility] Sertraline HCl (Zoloft) 100 mg PO HS [facility] Trazodone HCl (Desyrel) 150 mg PO HS [facility] Results - Vital Signs Recent Vital Signs: Last Vital Signs Temp 98.5 F 04/27/17 05:45 Pulse 98 H 04/27/17 07:33 Resp 23 04/27/17 07:33 BP 140/80 04/27/17 05:45 Pulse Ox 99 04/27/17 05:45 - Labs Result Diagrams: 04/26/17 23:30 04/26/17 23:30 Labs: Laboratory Results - last 24 hr 04/26/17 04/26/17 04/27/17 23:30 23:30 07:35 WBC 14.5 H RBC 4.82 Hgb 13.1 Hct 38.8 MCV 80.6 L MCH 27.2 MCHC 33.7 RDW 14.8 H Plt Count 140 MPV 8.2 Neut % (Auto) 70.5 Lymph % (Auto) 20.5 [place] % (Auto) 7.2 Eos % (Auto) 1.2 Baso % (Auto) 0.6 Neut # (Auto) 10.2 H Lymph # (Auto) 3.0 [place] # (Auto) 1.1 H Eos # (Auto) 0.2 Baso # (Auto) 0.1 Puncture Site pCO2 pO2 HCO3 ABG pH ABG Total CO2 ABG O2 Saturation ABG Base Excess Rob Test ABG Potassium A-a O2 Difference Respiratory Index Glucose Lactate FiO2 Crit Value Called To Crit Value Called By Crit Value Read Back Blood Gas Notified Time Sodium 141 Potassium 3.9 Chloride 104 Carbon Dioxide 24 Anion Gap 17 BUN 15 Creatinine 0.8 Est GFR ( Amer) > 60 Est GFR (Non-Af Amer) > 60 POC Glucose (mg/dL) 314 H Random Glucose 196 H Calcium 9.4 Total Bilirubin 0.6 AST 17 ALT 25 Alkaline Phosphatase 182 H D NT-Pro-B Natriuret Pep 81.9 Total Protein 8.3 Albumin 3.9 Globulin 4.3 H Albumin/Globulin Ratio 0.9 L Arterial Blood Potassium 04/27/17 04/27/17 08:25 08:35 WBC RBC Hgb Hct MCV MCH MCHC RDW Plt Count MPV Neut % (Auto) Lymph % (Auto) [place] % (Auto) Eos % (Auto) Baso % (Auto) Neut # (Auto) Lymph # (Auto) [place] # (Auto) Eos # (Auto) Baso # (Auto) Puncture Site Rb pCO2 45 pO2 111 H HCO3 22.5 ABG pH 7.32 L ABG Total CO2 24.6 ABG O2 Saturation 99.0 H ABG Base Excess -3.1 L Rob Test Na ABG Potassium 4.8 A-a O2 Difference 118.0 Respiratory Index 1.1 Glucose 461 H* D Lactate 3.3 H FiO2 40.0 Crit Value Called To Dr rylee gilman Crit Value Called By Cherie cadena fluorescent solution mixer Crit Value Read Back Y Blood Gas Notified Time 840 Sodium 140.0 Potassium Chloride 106.0 Carbon Dioxide Anion Gap BUN Creatinine Est GFR ( Amer) Est GFR (Non-Af Amer) POC Glucose (mg/dL) 364 H Random Glucose Calcium Total Bilirubin AST ALT Alkaline Phosphatase NT-Pro-B Natriuret Pep Total Protein Albumin Globulin Albumin/Globulin Ratio Arterial Blood Potassium 4.8 Assessment & Plan (1) COPD exacerbation Status: Acute (2) Chr obstructive pulmonary disease w/ acute lower respiratory infxn Status: Acute (3) COPD exacerbation Status: Acute (4) Morbid obesity Status: Acute (5) Mucus plugging of bronchi Status: Acute - Assessment and Plan (Free Text) Assessment: 61 Y/O female, with history of COPD and tracheostomy, presents to ER for evaluation of shortness of breath. Patient was transferred to ICU for acute respiratory distress with what seems to be a coughing spell Suggested to transfer to ICU for close monitoring of respiratory status Might require full vent support for now if the acute event does not resolve STAT CT scan of neck ordered to rule out trachea stenosis or tracheomalacia Thoracic surgeon was consulted Continue prednisone 30mg daily Continue singulair Agree with azithromycin Cntinue nebulizer, racemic epi, inhaled lidocaine, and may use Heliox if available
[2017-04-27] MEDS: QUEtiapine 200 mg XR Tab PO SCH ×2 (10:58→21:50)
[2017-04-27] MEDS: Pantoprazole 20 mg EC Tab PO SCH (10:58)
[2017-04-27] MEDS ORDERED: Lidocaine 1% Inj (20ml) INFIL ONE (11:25)
[2017-04-27] MEDS: Azithromycin 500 MG in Sodium Chloride 0.9% 250 ML IVPB SCH (12:00)
--- NOTE | 2017-04-27 12:45 | CP.PCM.CON ---
<Ezequiel Santoyo - Last Filed: 04/27/17 13:52> History of Present Illness - History of Present Illness History of Present Illness: 61 year old female with a past medical history of hypertension, morbid obesity, hyperlipidemia, major depressive psychosis, bronchial asthma, chronic respiratory failure who was admitted for shortness of breath without improvement with nebulizers. Patient was transferred to the ICU unit after having productive cough spells that were causing her acute anxiety and difficulty breathing. ROS unobtainable at this time due to current clinical status. Past medical history: Anxiety, asthma, bipolar disorder, bronchitis, chf, copd, depression, emphysema, hypertension, pneumonia, seizures, sleep apnea Past surgical hisotry: Appendectomy, Cholecystectomy Allergies :Aspirin, ceftriaxone sodium, ibuprofen, iodine, raspberry Social history: Denies tobacco, alcohol use. Denies illicit drug use. Review of Systems - Review of Systems Systems not reviewed;Unavailable: Acuity of Condition Past Patient History - Infectious Disease Hx of Infectious Diseases: None - Tetanus Immunizations Tetanus Immunization: Unknown - Past Medical History & Family History Past Medical History?: Yes - Past Social History Smoking Status: Unknown If Ever Smoked - CARDIAC Hx Cardiac Disorders: Yes Hx Congestive Heart Failure: Yes Hx Hypercholesterolemia: No Hx Hypertension: Yes - PULMONARY Hx Respiratory Disorders: Yes Hx Asthma: Yes Hx Bronchitis: Yes Hx Chronic Obstructive Pulmonary Disease (COPD): Yes Hx Emphysema: Yes Hx Pneumonia: Yes Hx Sleep Apnea: Yes - NEUROLOGICAL Hx Neurological Disorder: Yes Hx Seizures: Yes - HEENT Hx HEENT Problems: Yes Hx Cataracts: Yes - RENAL Hx Chronic Kidney Disease: No - ENDOCRINE/METABOLIC Hx Endocrine Disorders: Yes Hx Hypothyroidism: No - HEMATOLOGICAL/ONCOLOGICAL Hx Blood Disorders: No Hx Human Immunodeficiency Virus (HIV): No - INTEGUMENTARY Hx Dermatological Problems: No - MUSCULOSKELETAL/RHEUMATOLOGICAL Hx Musculoskeletal Disorders: Yes Hx Arthritis: No Hx Falls: Yes Hx Rheumatoid Arthritis: No Hx Unsteady Gait: Yes - GASTROINTESTINAL Hx Gastrointestinal Disorders: Yes Other/Comment: cholecystectomy - GENITOURINARY/GYNECOLOGICAL Hx Genitourinary Disorders: No Hx Sexually Transmitted Disorders: No - PSYCHIATRIC Hx Psychophysiologic Disorder: Yes Hx Anxiety: Yes Hx Bipolar Disorder: Yes Hx Depression: Yes Hx Substance Use: No - SURGICAL HISTORY Hx Surgeries: Yes Hx Appendectomy: Yes Hx Cholecystectomy: Yes - ANESTHESIA Hx Anesthesia: Yes Hx Anesthesia Reactions: No Hx Malignant Hyperthermia: No Has any member of the family had a problem w/ anesthesia?: No Meds Allergies/Adverse Reactions: Allergies Allergy/AdvReac Type Severity Reaction Status Date / Time aspirin Allergy ANAPHYLAXIS Verified 04/26/17 22:40 ceftriaxone sodium Allergy ANAPHYLAXIS Verified 04/26/17 22:40 [From Rocephin] ibuprofen [From Motrin] Allergy ANAPHYLAXIS Verified 04/26/17 22:40 iodine Allergy ANAPHYLAXIS Verified 04/26/17 22:40 raspberry Allergy ANAPHYLAXIS Verified 04/26/17 22:40 - Medications Medications: Current Medications Albuterol/Ipratropium (Duoneb 3 Mg/0.5 Mg (3 Ml) Ud) 3 ml INH RQ4 [facility] Enoxaparin Sodium (Lovenox) 40 mg SC DAILY [facility] Last Admin: 04/27/17 09:09 Dose: 40 mg Gabapentin (Neurontin) 800 mg PO TID [facility] Last Admin: 04/27/17 10:57 Dose: Not Given Guaifenesin (Robitussin) 200 mg PO Q4H [facility] Last Admin: 04/27/17 09:12 Dose: Not Given Azithromycin 500 mg/ Sodium (Chloride) 250 mls @ 250 mls/hr IVPB DAILY [facility] Stop: 05/01/17 10:00 Last Admin: 04/27/17 12:00 Dose: 250 mls/hr Propofol (Diprivan) 1,000 mg in 100 mls @ 3.946 mls/hr IV .Q24H PRN; Protocol; 5 MCG/KG/MIN PRN Reason: TITRATE PER MD ORDER Last Admin: 04/27/17 10:17 Dose: 10 mcg/kg/min, 7.893 mls/hr Insulin Aspart (Novolog) 0 unit SC ACHS [facility] PRN Reason: Protocol Last Admin: 04/27/17 09:10 Dose: 5 unit Insulin Glargine (Lantus) 30 unit SC HS [facility] Lorazepam (Ativan) 2 mg PO TID PRN PRN Reason: Anxiety Last Admin: 04/27/17 05:32 Dose: 2 mg Montelukast Sodium (Singulair) 10 mg PO HS [facility] Nystatin (Nystop Topical Powder) 1 applic TOP BID [facility] Oxycodone/Acetaminophen (Percocet 5/325 Mg Tab) 1 tab PO Q4H PRN PRN Reason: Pain, moderate (4-7) Stop: 04/30/17 03:54 Last Admin: 04/27/17 05:32 Dose: 1 tab Pantoprazole Sodium (Protonix Ec Tab) 20 mg PO DAILY [facility] Last Admin: 04/27/17 10:58 Dose: Not Given Prednisone (Prednisone Tab) 30 mg PO DAILY [facility] Last Admin: 04/27/17 09:17 Dose: Not Given Quetiapine Fumarate (Seroquel Xr) 400 mg PO Q12 [facility] Last Admin: 04/27/17 10:58 Dose: Not Given Sertraline HCl (Zoloft) 100 mg PO HS [facility] Trazodone HCl (Desyrel) 150 mg PO HS [facility] Physical Exam - Head Exam Head Exam: ATRAUMATIC, NORMAL INSPECTION, NORMOCEPHALIC - Eye Exam Eye Exam: EOMI, Normal appearance, PERRL Pupil Exam: NORMAL ACCOMODATION, PERRL. absent: Irregular, Unequal - ENT Exam ENT Exam: Mucous Membranes Moist, Normal Exam - Neck Exam Additional comments: Trach in place - Respiratory Exam Respiratory Exam: Clear to Auscultation Bilateral, NORMAL BREATHING PATTERN. absent: Chest Wall Tenderness, Prolonged Expiratory Phase, Respiratory Distress - Cardiovascular Exam Cardiovascular Exam: REGULAR RHYTHM, +S1, +S2 - GI/Abdominal Exam GI & Abdominal Exam: Normal Bowel Sounds, Soft. absent: Tenderness - Extremities Exam Extremities exam: Positive for: normal inspection. Negative for: full ROM, pedal edema - Neurological Exam Neurological exam: Alert, CN II-XII Intact - Psychiatric Exam Psychiatric exam: Anxious - Skin Skin Exam: Dry, Intact Results - Vital Signs Recent Vital Signs: Last Vital Signs Temp 98.5 F 04/27/17 05:45 Pulse 98 H 04/27/17 07:33 Resp 23 04/27/17 07:33 BP 140/80 04/27/17 05:45 Pulse Ox 99 04/27/17 05:45 - Labs Result Diagrams: 04/26/17 23:30 04/26/17 23:30 Labs: Laboratory Results - last 24 hr 04/26/17 04/26/17 04/27/17 23:30 23:30 07:35 WBC 14.5 H RBC 4.82 Hgb 13.1 Hct 38.8 MCV 80.6 L MCH 27.2 MCHC 33.7 RDW 14.8 H Plt Count 140 MPV 8.2 Neut % (Auto) 70.5 Lymph % (Auto) 20.5 Candler % (Auto) 7.2 Eos % (Auto) 1.2 Baso % (Auto) 0.6 Neut # (Auto) 10.2 H Lymph # (Auto) 3.0 Candler # (Auto) 1.1 H Eos # (Auto) 0.2 Baso # (Auto) 0.1 Puncture Site pCO2 pO2 HCO3 ABG pH ABG Total CO2 ABG O2 Saturation ABG Base Excess Rob Test ABG Potassium A-a O2 Difference Respiratory Index Glucose Lactate FiO2 Crit Value Called To Crit Value Called By Crit Value Read Back Blood Gas Notified Time Sodium 141 Potassium 3.9 Chloride 104 Carbon Dioxide 24 Anion Gap 17 BUN 15 Creatinine 0.8 Est GFR ( Amer) > 60 Est GFR (Non-Af Amer) > 60 POC Glucose (mg/dL) 314 H Random Glucose 196 H Calcium 9.4 Total Bilirubin 0.6 AST 17 ALT 25 Alkaline Phosphatase 182 H D NT-Pro-B Natriuret Pep 81.9 Total Protein 8.3 Albumin 3.9 Globulin 4.3 H Albumin/Globulin Ratio 0.9 L Arterial Blood Potassium 04/27/17 04/27/17 08:25 08:35 WBC RBC Hgb Hct MCV MCH MCHC RDW Plt Count MPV Neut % (Auto) Lymph % (Auto) Candler % (Auto) Eos % (Auto) Baso % (Auto) Neut # (Auto) Lymph # (Auto) Candler # (Auto) Eos # (Auto) Baso # (Auto) Puncture Site Rb pCO2 45 pO2 111 H HCO3 22.5 ABG pH 7.32 L ABG Total CO2 24.6 ABG O2 Saturation 99.0 H ABG Base Excess -3.1 L Rob Test Na ABG Potassium 4.8 A-a O2 Difference 118.0 Respiratory Index 1.1 Glucose 461 H* D Lactate 3.3 H FiO2 40.0 Crit Value Called To Dr rylee gilman Crit Value Called By Cherie cadena sustainability analyst Crit Value Read Back Y Blood Gas Notified Time 840 Sodium 140.0 Potassium Chloride 106.0 Carbon Dioxide Anion Gap BUN Creatinine Est GFR ( Amer) Est GFR (Non-Af Amer) POC Glucose (mg/dL) 364 H Random Glucose Calcium Total Bilirubin AST ALT Alkaline Phosphatase NT-Pro-B Natriuret Pep Total Protein Albumin Globulin Albumin/Globulin Ratio Arterial Blood Potassium 4.8 Assessment & Plan - Assessment and Plan (Free Text) Assessment: 61 year old female with a past medical history of hypertension, morbid obesity, hyperlipidemia, major depressive psychosis, bronchial asthma, chronic respiratory failure who was admitted for shortness of breath without improvement with nebulizers. Patient was transferred to the ICU unit after having productive cough spells that were causing her acute anxiety and difficulty breathing. Plan: Neurology AOX3 Cardiology: h/o CHF Pulmonary:COPD s/p Trach Guafenisen 200mg Q4 Duonebs 3ml INH RQ4 CT scan of neck. Will f/u with results. Endocrinology:dm Insulin Aspart ACHS Glargine 30 UNIT schs Psychiatry: h/o of depression Quetiapine 400 PO Q12 Zoloft 100mg PO HS Neurontin 800mg PO TID Trazadone 150mg PO HS Infectious Disease: Azithromycin 500mg IVPB Daily ppx Protonix 20 mg PO Daily Lovenox 40mg SC Daily Propofol @ 5mcg/kg/min <Liza Garcia - Last Filed: 04/27/17 17:03> Meds - Medications Medications: Current Medications Albuterol/Ipratropium (Duoneb 3 Mg/0.5 Mg (3 Ml) Ud) 3 ml INH RQ4 [facility] Last Admin: 04/27/17 13:29 Dose: 3 ml Enoxaparin Sodium (Lovenox) 40 mg SC DAILY [facility] Last Admin: 04/27/17 09:09 Dose: 40 mg Gabapentin (Neurontin) 800 mg PO TID [facility] Last Admin: 04/27/17 15:17 Dose: Not Given Guaifenesin (Robitussin) 200 mg PO Q4H [facility] Last Admin: 04/27/17 13:30 Dose: Not Given Azithromycin 500 mg/ Sodium (Chloride) 250 mls @ 250 mls/hr IVPB DAILY [facility] Stop: 05/01/17 10:00 Last Admin: 04/27/17 12:00 Dose: 250 mls/hr Propofol (Diprivan) 1,000 mg in 100 mls @ 3.946 mls/hr IV .Q24H PRN; Protocol; 5 MCG/KG/MIN PRN Reason: TITRATE PER MD ORDER Last Admin: 04/27/17 10:17 Dose: 10 mcg/kg/min, 7.893 mls/hr Insulin Aspart (Novolog) 0 unit SC ACHS [facility] PRN Reason: Protocol Last Admin: 04/27/17 13:31 Dose: Not Given Insulin Glargine (Lantus) 30 unit SC HS [facility] Lorazepam (Ativan) 2 mg PO TID PRN PRN Reason: Anxiety Last Admin: 04/27/17 05:32 Dose: 2 mg Montelukast Sodium (Singulair) 10 mg PO HS [facility] Nystatin (Nystop Topical Powder) 1 applic TOP BID [facility] Last Admin: 04/27/17 13:32 Dose: Not Given Oxycodone/Acetaminophen (Percocet 5/325 Mg Tab) 1 tab PO Q4H PRN PRN Reason: Pain, moderate (4-7) Stop: 04/30/17 03:54 Last Admin: 04/27/17 05:32 Dose: 1 tab Pantoprazole Sodium (Protonix Ec Tab) 20 mg PO DAILY [facility] Last Admin: 04/27/17 10:58 Dose: Not Given Prednisone (Prednisone Tab) 30 mg PO DAILY [facility] Last Admin: 04/27/17 09:17 Dose: Not Given Quetiapine Fumarate (Seroquel Xr) 400 mg PO Q12 [facility] Last Admin: 04/27/17 10:58 Dose: Not Given Sertraline HCl (Zoloft) 100 mg PO HS [facility] Trazodone HCl (Desyrel) 150 mg PO HS [facility] Results - Vital Signs Recent Vital Signs: Last Vital Signs Temp 98.1 F 04/27/17 12:00 Pulse 104 H 04/27/17 16:56 Resp 15 04/27/17 16:56 BP 141/92 H 04/27/17 16:56 Pulse Ox 99 04/27/17 16:56 - Labs Result Diagrams: 04/26/17 23:30 04/26/17 23:30 Labs: Laboratory Results - last 24 hr 04/26/17 04/26/17 04/27/17 23:30 23:30 07:35 WBC 14.5 H RBC 4.82 Hgb 13.1 Hct 38.8 MCV 80.6 L MCH 27.2 MCHC 33.7 RDW 14.8 H Plt Count 140 MPV 8.2 Neut % (Auto) 70.5 Lymph % (Auto) 20.5 Candler % (Auto) 7.2 Eos % (Auto) 1.2 Baso % (Auto) 0.6 Neut # (Auto) 10.2 H Lymph # (Auto) 3.0 Candler # (Auto) 1.1 H Eos # (Auto) 0.2 Baso # (Auto) 0.1 Puncture Site pCO2 pO2 HCO3 ABG pH ABG Total CO2 ABG O2 Saturation ABG Base Excess Rob Test ABG Potassium A-a O2 Difference Respiratory Index Glucose Lactate FiO2 Crit Value Called To Crit Value Called By Crit Value Read Back Blood Gas Notified Time Sodium 141 Potassium 3.9 Chloride 104 Carbon Dioxide 24 Anion Gap 17 BUN 15 Creatinine 0.8 Est GFR ( Amer) > 60 Est GFR (Non-Af Amer) > 60 POC Glucose (mg/dL) 314 H Random Glucose 196 H Calcium 9.4 Total Bilirubin 0.6 AST 17 ALT 25 Alkaline Phosphatase 182 H D NT-Pro-B Natriuret Pep 81.9 Total Protein 8.3 Albumin 3.9 Globulin 4.3 H Albumin/Globulin Ratio 0.9 L Arterial Blood Potassium 04/27/17 04/27/17 08:25 08:35 WBC RBC Hgb Hct MCV MCH MCHC RDW Plt Count MPV Neut % (Auto) Lymph % (Auto) Candler % (Auto) Eos % (Auto) Baso % (Auto) Neut # (Auto) Lymph # (Auto) Candler # (Auto) Eos # (Auto) Baso # (Auto) Puncture Site Rb pCO2 45 pO2 111 H HCO3 22.5 ABG pH 7.32 L ABG Total CO2 24.6 ABG O2 Saturation 99.0 H ABG Base Excess -3.1 L Rob Test Na ABG Potassium 4.8 A-a O2 Difference 118.0 Respiratory Index 1.1 Glucose 461 H* D Lactate 3.3 H FiO2 40.0 Crit Value Called To Dr rylee gilman Crit Value Called By Cherie cadena sustainability analyst Crit Value Read Back Y Blood Gas Notified Time 840 Sodium 140.0 Potassium Chloride 106.0 Carbon Dioxide Anion Gap BUN Creatinine Est GFR ( Amer) Est GFR (Non-Af Amer) POC Glucose (mg/dL) 364 H Random Glucose Calcium Total Bilirubin AST ALT Alkaline Phosphatase NT-Pro-B Natriuret Pep Total Protein Albumin Globulin Albumin/Globulin Ratio Arterial Blood Potassium 4.8 Assessment & Plan - Assessment and Plan (Free Text) Plan: PAtient seen and examined at bedside. PAtient had a cough variant asthma episode on floor and was transferred to ICU for monitoring. -Above resident note reviewed and verified. -Patient has trach and tolerating CPAP -continue all other home medications -possible down grade to telemetry - Date & Time Date: 04/27/17 Time: 17:03
[2017-04-27] MEDS: Albuterol-Ipratrop 3 mg / 0.5 (3 ml) UD INH SCH ×3 (13:29→20:04)
--- NOTE | 2017-04-27 17:24 | CT ---
PROCEDURE: CT neck dated 04/27/2017. HISTORY: Shortness of breath COMPARISON: Correlation made with concurrent CT scan chest . TECHNIQUE: Contiguous helical/ transaxial sections of the neck without intravenous contrast. Coronal and sagittal reformats generated. Radiation dose: DLP 565.17 mGy-cm This CT exam was performed using one or more of the following dose reduction techniques: Automated exposure control, adjustment of the mA and/or kV according to patient size, and/or use of iterative reconstruction technique. FINDINGS: There are no large cervical masses or collections. Few small nonspecific bilateral cervical lymph nodes are present none of which appear pathologically enlarged. The parotid glands are prominent though symmetric in appearance. No obvious parotid masses, collections or calcifications. There is mild asymmetry of the submandibular glands, left-sided which is slightly larger than the right however no obvious infiltration changes, masses collections or calcifications identified. . The thyroid gland is poorly delineated due to crossing streak and beam hardening artifact arising from dense clavicles, shoulder girdles and radiopaque in situ tracheostomy tube hardware. The thyroid gland is heterogeneous likely due to aforementioned artifact however thyroid ultrasound followup could be performed to confirm. In situ tracheostomy tube in good position. Airway is maintained at this level by the tracheostomy tube itself. Airway appears slightly narrowed at and below the level of the distal aspect of the tracheostomy tube which could be secondary to patient positioning with extension of the neck in the gantry for CT imaging of the neck and/or phase of respiration as the airway that exhibits a relatively more normal caliber in the AP dimension on concurrent CT scan of the chest The true vocal cords are midline ; airway is closed at this level due to apposition of the true vocal cords. There is asymmetry of the vallecula all which contains soft tissue likely due to some encroaching lingual tonsils and possibly some residual and/or retained secretion . Oral cavity structures appear unremarkable. Right apical parenchymal atelectasis or scarring with ground-glass opacities. Followup the CT scan of the chest recommended for further evaluation. Vascular calcifications both carotid siphons and vertebral arteries. IMPRESSION: In situ tracheostomy tube in good position. Airway is maintained at this level by the tracheostomy tube itself. Airway appears slightly narrowed at and below the level of the distal aspect of the tracheostomy tube which could be secondary to patient positioning with extension of the neck in the gantry for CT imaging of the neck and/or phase of respiration as the airway that exhibits a relatively more normal caliber in the AP dimension on concurrent CT scan of the chest. Clinical correlation recommended. Note that these findings were discussed with Dr. Garcia at approximately 5:15 p.m. with written down and read back verification. Prominent parotid glands. Asymmetric submandibular glands left-sided slightly larger than right.
--- NOTE | 2017-04-27 18:01 | CT ---
PROCEDURE: CT scan of the chest dated 04/27/2017 at 1637 hours HISTORY: COPD exacerbation upper respiratory infection Shortness of breath. COMPARISON: Comparison made with CT scan of the chest obtained 04/27/2017 at 0121 hours TECHNIQUE: Contiguous helical/transaxial images were obtained through the chest without intravenous contrast enhancement. Sagittal and coronal reconstructions were performed. Radiation dose (DLP): 985.79 mGy-cm. This CT exam was performed using one or more of the following dose reduction techniques: Automated exposure control, adjustment of the mA and/or kV according to patient size, and/or use of iterative reconstruction technique. FINDINGS: In situ tracheostomy tube in good position. LUNGS: Re- demonstrated are atelectasis/scarring and ground-glass opacities as seen in the right upper and bilateral lower lobes. . No obvious parenchymal masses or nodules are identified. MEDIASTINUM: The heart is normal in size. No significant pericardial effusion. Ascending thoracic aorta measures approximately 3.3 cm and descending thoracic aorta measures approximately 2.67 cm. Pulmonary trunk measures approximately 2.95 cm. Several mediastinal lymph nodes are present , the largest in the right precarinal region measuring 2.4 c which contains fatty center. There may be a small sub carinal lymph node. Evaluation for hilar adenopathy limited due to the lack of circulating intravenous contrast material. Central airway is midline and patent. No large central endoluminal lesions. . PLEURA: No pleural fluid. No pneumothorax. BONES: Multilevel degenerative spondylosis of the thoracic spine. Multiple chronic anterior wedge compression deformities UPPER ABDOMEN: The spleen is mildly enlarged measuring approximately 13 cm in AP dimension. . Liver is upper limits of normal measuring approximately 18.4 cm in CC dimension. OTHER FINDINGS: None. . IMPRESSION: In situ tracheostomy tube in good position. Areas of atelectasis/scarring and ground-glass opacity seen in the right upper lobe and both lower lobes. Rule out infectious/inflammatory etiologies. .
--- NOTE | 2017-04-27 19:29 | PCM.RRT ---
EMBEDDED ENGINEER Nurses Assessment - Situation Date: 04/27/17 Time EMBEDDED ENGINEER was called: 08:17 EMBEDDED ENGINEER Responder Arrival Time:: 08:17 EMBEDDED ENGINEER Location:: Med/Oncology Room Number: 365N EMBEDDED ENGINEER Reason for Call: Respiratory Distress, Not Responding to Urgent Treatment, Looks Sicker EMBEDDED ENGINEER Called By: RN - IV IV Inserted during EMBEDDED ENGINEER?: No - Respiratory EMBEDDED ENGINEER Delivery Method: Trach Collar @% Oxygen Flow Rate: 100 Received Nebulizer Treatments: Yes (duoneb, heliox, racephinephrine 2.25% neb tx ) Was the Patient Ventilated with Bag/Mask 100% O2?: No (trache) Secretions Suctioned?: Yes Was the Patient Intubated?: No Was the Patient Placed on a Ventilator?: No - Ventilator Settings FIO2 (% Oxygen): 40 - Medication Medications Administered During EMBEDDED ENGINEER: 80mg IV solumedrol, 1gm magnesium sulfate, x2 duoneb tx, racephinephrine 2.25% neb tx - Diagnostic Test Ordered EKG: Yes Chest X-Ray: Yes CT Scan: Yes (Neck and Chest) Other Diagnostic Test Ordered: Consults called: , , - Stat Labs Ordered EMBEDDED ENGINEER Stat Labs Ordered: BLOOD C&S X2, ABG CPR started during EMBEDDED ENGINEER?: No - Vital Signs Vital Signs: Rapid Response Vital Sign Blood Pressure 153/99 Pulse Rate 106 Respiratory Rate 22 Temperature 98.0 F Oxygen Saturation 96 - Jackson Coma Scale Coma Scale Eye Opening: Spontaneous Coma Scale Motor: Obeys Commands Movement Coma Scale Verbal: Oriented Coma Scale Total: 15 - Time EMBEDDED ENGINEER Ended Time EMBEDDED ENGINEER Ended: 09:15 - Vital Signs at end of EMBEDDED ENGINEER Vital Signs at end of EMBEDDED ENGINEER: Rapid Response End Vital Sign Blood Pressure 134/83 Pulse Rate 125 Respiratory Rate 22 Temperature 98.7 F O2 Sat by Pulse Oximetry 98 - Recommendations Notifications: Attending Physician, Consultations I.Reason for EMBEDDED ENGINEER - A) Acute Change in Patient: (Select all that apply): Staff member or family is worried about patient (Pt stated that she was having difficutly breathing.) - Neurological Status (Select all that apply): Alert, Responsive, Oriented, Follows Commands. absent : Verbal (trach in place) - Respiratory Oxygen Delivery Method: Trach Collar @% Oxygen Flow Rate: 100 - Constitutional Appears: In Acute Distress (struggling breathing.) - Head Head Exam: ATRAUMATIC Plan - Assessment of Findings&Treatment Plan Patient stated that she was experiencing difficulty breathing to the nurse. EMBEDDED ENGINEER was called. Patient is well known to respiratory staff. Patient had an audible stridor upon entering into the room. Order: Solu-medrol 80mg IVP Duoneb Magnesium 1gm IV Patient was still struggling to breath. Racepinephrine 2.25% 0.[address] Dr[address] Rosado was consulted, Dr. Cooper covering. It was suspected that the patient's trach may be too small and causing irritation. Patient started on Heliox q8h and transferred to ICU for further monitor. Cardiothroacic surgery, Dr. Mckeon was consulted for trach revision. Case discussed with Dr. Melanie Carrera Tianna PGY1
[2017-04-27] MEDS: (Lantus) Insulin Glargine, Recombinant SC SCH (22:00)
--- NOTE | 2017-04-27 23:14 | CP.PCM.HP ---
History of Present Illness - History of Present Illness History of Present Illness: Mrs Moser is a 61 year old female with a PMHx of COPD and tracheostomy. Patient presented to the ED on 04/26 for evaluation of shortness of breath. 61 year old female with a past medical history of hypertension, morbid obesity, hyperlipidemia, major depressive psychosis, bronchial asthma, chronic respiratory failure who was admitted for shortness of breath without improvement with nebulizers. Patient was transferred to the ICU unit after having productive cough spells that were causing her acute anxiety and difficulty breathing. ROS unobtainable at this time due to current clinical status. Past medical history: Anxiety, asthma, bipolar disorder, bronchitis, chf, copd, depression, emphysema, hypertension, pneumonia, seizures, sleep apnea Past surgical hisotry: Appendectomy, Cholecystectomy Allergies :Aspirin, ceftriaxone sodium, ibuprofen, iodine, raspberry Social history: Denies tobacco, alcohol use. Denies illicit drug use. Most recent chest XR on 04/27 shows Tracheostomy tube. Cardiomegaly. Mild interstitial prominence may reflect infection or edema. Patchy consolidation in the right medial upper lobe and streaky patchy opacities in the left hilar regions, possibly infiltrate. Chest CT on 04/27 shows Peribronchial ground opacities. Consider inflammatory or infectious etiologies. Admission labs show leukocytosis (14.5) Past Patient History - Infectious Disease Hx of Infectious Diseases: None - Tetanus Immunizations Tetanus Immunization: Unknown - Past Medical History & Family History Past Medical History?: Yes - Past Social History Smoking Status: Unknown If Ever Smoked - CARDIAC Hx Cardiac Disorders: Yes Hx Congestive Heart Failure: Yes Hx Hypercholesterolemia: No Hx Hypertension: Yes - PULMONARY Hx Respiratory Disorders: Yes Hx Asthma: Yes Hx Bronchitis: Yes Hx Chronic Obstructive Pulmonary Disease (COPD): Yes Hx Emphysema: Yes Hx Pneumonia: Yes Hx Sleep Apnea: Yes - NEUROLOGICAL Hx Neurological Disorder: Yes Hx Seizures: Yes - HEENT Hx HEENT Problems: Yes Hx Cataracts: Yes - RENAL Hx Chronic Kidney Disease: No - ENDOCRINE/METABOLIC Hx Endocrine Disorders: Yes Hx Hypothyroidism: No - HEMATOLOGICAL/ONCOLOGICAL Hx Blood Disorders: No Hx Human Immunodeficiency Virus (HIV): No - INTEGUMENTARY Hx Dermatological Problems: No - MUSCULOSKELETAL/RHEUMATOLOGICAL Hx Musculoskeletal Disorders: Yes Hx Arthritis: No Hx Falls: Yes Hx Rheumatoid Arthritis: No Hx Unsteady Gait: Yes - GASTROINTESTINAL Hx Gastrointestinal Disorders: Yes Other/Comment: cholecystectomy - GENITOURINARY/GYNECOLOGICAL Hx Genitourinary Disorders: No Hx Sexually Transmitted Disorders: No - PSYCHIATRIC Hx Psychophysiologic Disorder: Yes Hx Anxiety: Yes Hx Bipolar Disorder: Yes Hx Depression: Yes Hx Substance Use: No - SURGICAL HISTORY Hx Surgeries: Yes Hx Appendectomy: Yes Hx Cholecystectomy: Yes - ANESTHESIA Hx Anesthesia: Yes Hx Anesthesia Reactions: No Hx Malignant Hyperthermia: No Has any member of the family had a problem w/ anesthesia?: No Meds Allergies/Adverse Reactions: Allergies Allergy/AdvReac Type Severity Reaction Status Date / Time aspirin Allergy ANAPHYLAXIS Verified 04/26/17 22:40 ceftriaxone sodium Allergy ANAPHYLAXIS Verified 04/26/17 22:40 [From Rocephin] ibuprofen [From Motrin] Allergy ANAPHYLAXIS Verified 04/26/17 22:40 iodine Allergy ANAPHYLAXIS Verified 04/26/17 22:40 raspberry Allergy ANAPHYLAXIS Verified 04/26/17 22:40 Results - Vital Signs Recent Vital Signs: Last Vital Signs Temp 98.4 F 04/27/17 16:00 Pulse 89 04/27/17 19:00 Resp 10 L 04/27/17 19:00 BP 145/88 04/27/17 18:56 Pulse Ox 99 04/27/17 19:00 - Labs Result Diagrams: 04/26/17 23:30 04/26/17 23:30 Labs: Laboratory Results - last 24 hr 04/26/17 04/26/17 04/27/17 23:30 23:30 07:35 WBC 14.5 H RBC 4.82 Hgb 13.1 Hct 38.8 MCV 80.6 L MCH 27.2 MCHC 33.7 RDW 14.8 H Plt Count 140 MPV 8.2 Neut % (Auto) 70.5 Lymph % (Auto) 20.5 [place] % (Auto) 7.2 Eos % (Auto) 1.2 Baso % (Auto) 0.6 Neut # (Auto) 10.2 H Lymph # (Auto) 3.0 [place] # (Auto) 1.1 H Eos # (Auto) 0.2 Baso # (Auto) 0.1 Puncture Site pCO2 pO2 HCO3 ABG pH ABG Total CO2 ABG O2 Saturation ABG Base Excess Rob Test ABG Potassium A-a O2 Difference Respiratory Index Glucose Lactate FiO2 Crit Value Called To Crit Value Called By Crit Value Read Back Blood Gas Notified Time Sodium 141 Potassium 3.9 Chloride 104 Carbon Dioxide 24 Anion Gap 17 BUN 15 Creatinine 0.8 Est GFR ( Amer) > 60 Est GFR (Non-Af Amer) > 60 POC Glucose (mg/dL) 314 H Random Glucose 196 H Calcium 9.4 Total Bilirubin 0.6 AST 17 ALT 25 Alkaline Phosphatase 182 H D NT-Pro-B Natriuret Pep 81.9 Total Protein 8.3 Albumin 3.9 Globulin 4.3 H Albumin/Globulin Ratio 0.9 L Arterial Blood Potassium 04/27/17 04/27/17 04/27/17 08:25 08:35 17:43 WBC RBC Hgb Hct MCV MCH MCHC RDW Plt Count MPV Neut % (Auto) Lymph % (Auto) [place] % (Auto) Eos % (Auto) Baso % (Auto) Neut # (Auto) Lymph # (Auto) [place] # (Auto) Eos # (Auto) Baso # (Auto) Puncture Site Rb pCO2 45 pO2 111 H HCO3 22.5 ABG pH 7.32 L ABG Total CO2 24.6 ABG O2 Saturation 99.0 H ABG Base Excess -3.1 L Rob Test Na ABG Potassium 4.8 A-a O2 Difference 118.0 Respiratory Index 1.1 Glucose 461 H* D Lactate 3.3 H FiO2 40.0 Crit Value Called To Dr rylee gilman Crit Value Called By Cherie cadena backend java developer Crit Value Read Back Y Blood Gas Notified Time 840 Sodium 140.0 Potassium Chloride 106.0 Carbon Dioxide Anion Gap BUN Creatinine Est GFR ( Amer) Est GFR (Non-Af Amer) POC Glucose (mg/dL) 364 H 267 H Random Glucose Calcium Total Bilirubin AST ALT Alkaline Phosphatase NT-Pro-B Natriuret Pep Total Protein Albumin Globulin Albumin/Globulin Ratio Arterial Blood Potassium 4.8
[2017-04-28] MEDS: Albuterol-Ipratrop 3 mg / 0.5 (3 ml) UD INH SCH ×6 (00:51→20:11)
[2017-04-28] MEDS: guaiFENesin 200 mg/10 ml Syrup UD PO SCH ×6 (04:00→20:00)
--- NOTE | 2017-04-28 04:23 | CON ---
DATE: 04/27/2017 REASON FOR CONSULTATION: Upper airway obstruction. REQUESTING PHYSICIAN: Ad Khan MD HISTORY OF PRESENT ILLNESS: This is a 61-year-old female status post trach who was noticed to have shortness of breath and difficulty breathing. The patient was taken from the floor and is in ICU now. The patient was placed on a vent to help her breathe. She complains of shortness of breath and difficulty breathing, moderate in intensity, constant. PAST MEDICAL HISTORY: As noted in the chart by me. MEDICATIONS: As noted in the chart by me. PHYSICAL EXAMINATION: HEAD: Atraumatic and normocephalic. FACE: Good facial movements bilaterally. CONSTITUTIONAL: Well fed, well nourished. COMMUNICATION: Communicates well and appropriately. EXTERNAL NOSE AND EARS: No masses. No lesions. No erythema. No edema. INTERNAL NOSE AND EARS: Deviated septum. No masses. No lesions. No erythema. No edema. LIPS AND GUMS: No masses. No lesions. No erythema. No edema. ORAL CAVITY AND OROPHARYNX: No masses. No lesions. No erythema. No edema. NECK: Supple. Trach and jaw intact. LYMPH NODES: No lymphadenopathy of the neck. THYROID: No thyromegaly. No goiter. DIAGNOSTIC DATA: CAT scan was checked by me and revealed tracheal stenosis. ASSESSMENT: 1. Upper airway obstruction. 2. Tracheal stenosis. 3. Deviated septum. PLAN: Consult Cardiothoracic for treatment of tracheal stenosis. Jake Keller MD
[2017-04-28] MEDS: Oxycodone/Acetaminophen 5/325 mg Tab PO PRN (05:45)
[2017-04-28] MEDS: (Novolog) Insulin Aspart, Recombinant 100 u/ml 10 ml vial SC SCH ×5 (06:00→22:10)
[2017-04-28 06:24] LABS: BASO % 0.3 % (0.0-2.0); EOS % 0.1 % (0.0-4.0); HEMOGLOBIN 12.1 g/dL (11.0-16.0); LYMPH # 1.8 K/uL (1.0-4.3); LYMPH % 16.3 % (20.0-40.0); MEAN CELL VOLUME 81.5 fL (81.0-99.0); MEAN CORPUSCULAR HEMOGLOBIN 27.7 pg (27.0-31.0); MEAN PLATELET VOLUME 8.9 fL (7.2-11.7); MONO # 1.1 K/uL (0.0-0.8); MONO % 9.8 % (0.0-10.0); NEUT # 8.1 K/uL (1.8-7.0); NEUT % 73.5 % (50.0-75.0); RBC 4.38 Mil/uL (3.80-5.20); RED CELL DISTRIBUTION WIDTH 15.1 % (11.5-14.5)
[2017-04-28 06:45] LABS: ALBUMIN 3.8 g/dL (3.5-5.0); ALT/SGPT 16 U/L (9-52); AST/SGOT 18 U/L (14-36); BLOOD UREA NITROGEN 22 mg/dL (7-17); CALCIUM 9.7 mg/dl (8.6-10.4); GFR AFRICAN-AMERICAN > 60; GFR NON-AFRICAN AMERICAN > 60; MAGNESIUM 2.3 mg/dL (1.6-2.3)
--- NOTE | 2017-04-28 08:09 | RAD ---
HISTORY: line placement COMPARISON: Chest radiograph performed approximately 11 hours prior. FINDINGS: LUNGS: Stable patchy bilateral lower lobe infiltrates. PLEURA: No significant pleural effusion identified, no pneumothorax apparent. CARDIOVASCULAR: Atherosclerotic aortic calcifications. Cardiomediastinal silhouette stably enlarged. OSSEOUS STRUCTURES: Unchanged. VISUALIZED UPPER ABDOMEN: Normal. OTHER FINDINGS: Tracheostomy, unchanged. IMPRESSION: Stable tracheostomy. No significant interval change.
--- NOTE | 2017-04-28 08:53 | CARD ---
APPROVED REPORT EKG Measurement Heart [id number] <Conclusion> Sinus tachycardia Otherwise normal ECG
[2017-04-28] MEDS: Enoxaparin 40 mg Syringe SC SCH (09:31)
[2017-04-28] MEDS: QUEtiapine 200 mg XR Tab PO SCH ×2 (09:32→22:10)
[2017-04-28] MEDS: Pantoprazole 20 mg EC Tab PO SCH (09:33)
[2017-04-28] MEDS: Azithromycin 500 MG in Sodium Chloride 0.9% 250 ML IVPB SCH (09:33)
[2017-04-28] MEDS ORDERED: Azithromycin 500 MG in Sodium Chloride 0.9% 250 ML IVPB SCH (10:00)
--- NOTE | 2017-04-28 11:36 | CP.PCM.PN ---
Subjective - Date & Time of Evaluation Date of Evaluation: 04/28/17 Time of Evaluation: 11:34 - Subjective Subjective: Patient's coughing episode resolved. Objective - Vital Signs/Intake and Output Vital Signs (last 24 hours): Temp Pulse Resp BP Pulse Ox 98.3 F 93 H 22 129/74 97 04/28/17 08:00 04/28/17 08:03 04/28/17 08:03 04/28/17 08:03 04/28/17 08:03 Intake and Output: 04/28/17 04/28/17 06:59 18:59 Intake Total 160 0 Output Total 350 Balance -190 0 - Medications Medications: Current Medications Albuterol/Ipratropium (Duoneb 3 Mg/0.5 Mg (3 Ml) Ud) 3 ml INH RQ4 [facility] Last Admin: 04/28/17 08:16 Dose: 3 ml Enoxaparin Sodium (Lovenox) 40 mg SC DAILY [facility] Last Admin: 04/28/17 09:31 Dose: 40 mg Gabapentin (Neurontin) 800 mg PO TID [facility] Last Admin: 04/28/17 10:18 Dose: 800 mg Guaifenesin (Robitussin) 200 mg PO Q4H [facility] Last Admin: 04/28/17 07:58 Dose: Not Given Azithromycin 500 mg/ Sodium (Chloride) 250 mls @ 250 mls/hr IVPB DAILY [facility] Stop: 05/01/17 10:00 Last Admin: 04/28/17 09:33 Dose: 250 mls/hr Insulin Aspart (Novolog) 0 unit SC ACHS [facility] PRN Reason: Protocol Insulin Glargine (Lantus) 30 unit SC [facility] Last Admin: 04/27/17 22:00 Dose: Not Given Methylprednisolone (Solu-Medrol) 40 mg IVP Q6H [facility] Montelukast Sodium (Singulair) 10 mg PO [facility] Last Admin: 04/27/17 21:50 Dose: 10 mg Nystatin (Nystop Topical Powder) 1 applic TOP BID [facility] Last Admin: 04/28/17 09:33 Dose: 1 applic Oxycodone/Acetaminophen (Percocet 5/325 Mg Tab) 1 tab PO Q4H PRN PRN Reason: Pain, moderate (4-7) Stop: 04/30/17 03:54 Last Admin: 04/28/17 05:45 Dose: 1 tab Pantoprazole Sodium (Protonix Ec Tab) 20 mg PO DAILY [facility] Last Admin: 04/28/17 09:33 Dose: 20 mg Quetiapine Fumarate (Seroquel Xr) 400 mg PO Q12 [facility] Last Admin: 04/28/17 09:32 Dose: 400 mg Sertraline HCl (Zoloft) 100 mg PO [facility] Last Admin: 04/27/17 21:50 Dose: 100 mg Trazodone HCl (Desyrel) 150 mg PO [facility] Last Admin: 04/27/17 21:50 Dose: 150 mg - Labs Labs: 04/28/17 06:18 04/28/17 06:18 - Constitutional Appears: Non-toxic, No Acute Distress, In Acute Distress - Head Exam Head Exam: ATRAUMATIC - Eye Exam Eye Exam: EOMI - ENT Exam ENT Exam: Mucous Membranes Moist - Respiratory Exam Respiratory Exam: Clear to Ausculation Bilateral, NORMAL BREATHING PATTERN - Cardiovascular Exam Cardiovascular Exam: REGULAR RHYTHM, +S1, +S2 - GI/Abdominal Exam GI & Abdominal Exam: Normal Bowel Sounds - Extremities Exam Extremities Exam: Normal Inspection Assessment and Plan - Assessment and Plan (Free Text) Assessment: Coughing: suspect cough variant asthma, check influenza, CPAP/PSV and trach collar, I personally suctioned out secretions and provided lidocain nebulizer to sooth trachea Pulmonary:COPD s/p Trach Duonebs 3ml INH RQ4 Endocrinology:dm Insulin Aspart ACHS Glargine 30 UNIT [facility] Psychiatry: h/o of depression Quetiapine 400 PO Q12 Zoloft 100mg PO HS Neurontin 800mg PO TID Trazadone 150mg PO HS -continue DVT/PUD ppx -start oral diet when trach cuff down
--- NOTE | 2017-04-28 11:36 | CP.PCM.PN ---
Subjective - Date & Time of Evaluation Date of Evaluation: 04/28/17 Time of Evaluation: 11:32 - Subjective Subjective: Ct Surgery: Dr Mckeon Pt S&E. Remains ventilated. No current complaints. Case and imaging discussed with Dr Mckeon. CT of neck does show mild narrowing of trachea distal to tracheostomy, however this can be due to neck extension or dependent upon phase of breathing. Findings are not consistent with Ct Chest which shows a normal caliber trachea in the AP view. Symptoms likely related to COPd exacerbations. Objective - Vital Signs/Intake and Output Vital Signs (last 24 hours): Temp Pulse Resp BP Pulse Ox 98.3 F 93 H 22 129/74 97 04/28/17 08:00 04/28/17 08:03 04/28/17 08:03 04/28/17 08:03 04/28/17 08:03 Intake and Output: 04/28/17 04/28/17 06:59 18:59 Intake Total 160 0 Output Total 350 Balance -190 0 - Medications Medications: Current Medications Albuterol/Ipratropium (Duoneb 3 Mg/0.5 Mg (3 Ml) Ud) 3 ml INH RQ4 [facility] Last Admin: 04/28/17 08:16 Dose: 3 ml Enoxaparin Sodium (Lovenox) 40 mg SC DAILY [facility] Last Admin: 04/28/17 09:31 Dose: 40 mg Gabapentin (Neurontin) 800 mg PO TID [facility] Last Admin: 04/28/17 10:18 Dose: 800 mg Guaifenesin (Robitussin) 200 mg PO Q4H [facility] Last Admin: 04/28/17 07:58 Dose: Not Given Azithromycin 500 mg/ Sodium (Chloride) 250 mls @ 250 mls/hr IVPB DAILY [facility] Stop: 05/01/17 10:00 Last Admin: 04/28/17 09:33 Dose: 250 mls/hr Insulin Aspart (Novolog) 0 unit SC ACHS [facility] PRN Reason: Protocol Insulin Glargine (Lantus) 30 unit SC [facility] Last Admin: 04/27/17 22:00 Dose: Not Given Methylprednisolone (Solu-Medrol) 40 mg IVP Q6H [facility] Montelukast Sodium (Singulair) 10 mg PO HS [facility] Last Admin: 04/27/17 21:50 Dose: 10 mg Nystatin (Nystop Topical Powder) 1 applic TOP BID [facility] Last Admin: 04/28/17 09:33 Dose: 1 applic Oxycodone/Acetaminophen (Percocet 5/325 Mg Tab) 1 tab PO Q4H PRN PRN Reason: Pain, moderate (4-7) Stop: 04/30/17 03:54 Last Admin: 04/28/17 05:45 Dose: 1 tab Pantoprazole Sodium (Protonix Ec Tab) 20 mg PO DAILY [facility] Last Admin: 04/28/17 09:33 Dose: 20 mg Quetiapine Fumarate (Seroquel Xr) 400 mg PO Q12 [facility] Last Admin: 04/28/17 09:32 Dose: 400 mg Sertraline HCl (Zoloft) 100 mg PO HS [facility] Last Admin: 04/27/17 21:50 Dose: 100 mg Trazodone HCl (Desyrel) 150 mg PO HS [facility] Last Admin: 04/27/17 21:50 Dose: 150 mg - Labs Labs: 04/28/17 06:18 04/28/17 06:18 - Constitutional Appears: Non-toxic, No Acute Distress - Head Exam Head Exam: NORMAL INSPECTION - Eye Exam Eye Exam: Normal appearance - ENT Exam ENT Exam: Mucous Membranes Dry - Neck Exam Additional comments: tracheostomy in good position - Respiratory Exam Respiratory Exam: absent: Respiratory Distress - Cardiovascular Exam Cardiovascular Exam: REGULAR RHYTHM. absent: Tachycardia - Neurological Exam Neurological Exam: Alert, Awake - Psychiatric Exam Psychiatric exam: Normal Affect, Normal Mood - Skin Skin Exam: Normal Color, Warm Assessment and Plan - Assessment and Plan (Free Text) Assessment: 61F with recurrent respiratory distress , hx of trach Plan: no CT evidence of tracheal stenosis, lizeth considering AP views on CT chest likely 2/2 COPd exacerbation no surgical intervention indicated d/w Dr Linda Clemente, PGY3
[2017-04-28] MEDS: MethylPREDNISolone 40 mg Vial IVP SCH ×3 (11:51→23:20)
--- NOTE | 2017-04-28 17:36 | PCM.PROC ---
Procedures Attestation:: I certify that I have explained the specified Operation(s) or Procedure(s), risks, benefits and reasonable alternatives to the Patient and/or other person responsible. The opportunity was given to ask questions and all questions answered - Central Line Placement Left Brachial Vein PICC Line Aseptic technique was employed throughout the procedure: Hand Hygiene done prior to procedure, Full sterile barriers (mask, hair cover, sterile gown, sterile gloves), Chloraprep Antiseptic: 30 second prep for IJ or SC sites CVP Time Out Performed: Yes Pt. Placed on Pulse Ox Monitor: Yes Central Line Prep: Chlorhexidine-Alcohol Combination Local Anesthesia Used: Lidocaine 1% Amount of Anesthesia Used (mls): 10 Ultrasound Used for Placement: Yes Central Line Lumen Inserted: double Central Line Length: 16 cm Post Procedure: Good Blood Return, All Ports Aspirated, Flushed, Capped, Sterile Dressing Applied Secured by: Securement device Post procedure dressing: Clear vapor permeable, Chlorhexidine disc (Biopatch) Post Procedure X-Ray: No Patient Tolerated Procedure: Well Immediate Complications: None
--- NOTE | 2017-04-28 18:00 | CP.PCM.PN ---
Subjective - Date & Time of Evaluation Date of Evaluation: 04/28/17 Time of Evaluation: 19:00 - Subjective Subjective: Pt seen and examined, pt is doing well, breathing via trach collar Objective - Vital Signs/Intake and Output Vital Signs (last 24 hours): Temp Pulse Resp BP Pulse Ox 98.6 F 91 H 24 103/67 100 04/28/17 16:00 04/28/17 16:00 04/28/17 16:00 04/28/17 15:02 04/28/17 16:00 Intake and Output: 04/28/17 04/28/17 06:59 18:59 Intake Total 160 370 Output Total 350 1070 Balance -190 -700 - Medications Medications: Current Medications Albuterol/Ipratropium (Duoneb 3 Mg/0.5 Mg (3 Ml) Ud) 3 ml INH RQ4 [facility] Last Admin: 04/28/17 16:05 Dose: 3 ml Enoxaparin Sodium (Lovenox) 40 mg SC DAILY [facility] Last Admin: 04/28/17 09:31 Dose: 40 mg Gabapentin (Neurontin) 800 mg PO TID [facility] Last Admin: 04/28/17 17:55 Dose: 800 mg Guaifenesin (Robitussin) 200 mg PO Q4H [facility] Last Admin: 04/28/17 15:54 Dose: Not Given Azithromycin 500 mg/ Sodium (Chloride) 250 mls @ 250 mls/hr IVPB DAILY [facility] Stop: 05/01/17 10:00 Last Admin: 04/28/17 09:33 Dose: 250 mls/hr Insulin Aspart (Novolog) 0 unit SC [facility] PRN Reason: Protocol Last Admin: 04/28/17 16:35 Dose: 6 unit Insulin Glargine (Lantus) 30 unit SC [facility] Last Admin: 04/27/17 22:00 Dose: Not Given Methylprednisolone (Solu-Medrol) 40 mg IVP Q6H [facility] Last Admin: 04/28/17 17:56 Dose: 40 mg Montelukast Sodium (Singulair) 10 mg PO [facility] Last Admin: 04/27/17 21:50 Dose: 10 mg Nystatin (Nystop Topical Powder) 1 applic TOP BID [facility] Last Admin: 04/28/17 17:55 Dose: Not Given Oxycodone/Acetaminophen (Percocet 5/325 Mg Tab) 1 tab PO Q4H PRN PRN Reason: Pain, moderate (4-7) Stop: 04/30/17 03:54 Last Admin: 04/28/17 05:45 Dose: 1 tab Pantoprazole Sodium (Protonix Ec Tab) 20 mg PO DAILY [facility] Last Admin: 04/28/17 09:33 Dose: 20 mg Quetiapine Fumarate (Seroquel Xr) 400 mg PO Q12 [facility] Last Admin: 04/28/17 09:32 Dose: 400 mg Sertraline HCl (Zoloft) 100 mg PO [facility] Last Admin: 04/27/17 21:50 Dose: 100 mg Trazodone HCl (Desyrel) 150 mg PO [facility] Last Admin: 04/27/17 21:50 Dose: 150 mg - Labs Labs: 04/28/17 06:18 04/28/17 06:18 - Constitutional Appears: No Acute Distress, Chronically Ill - Head Exam Head Exam: ATRAUMATIC, NORMAL INSPECTION, NORMOCEPHALIC - Eye Exam Eye Exam: EOMI, Normal appearance, PERRL Pupil Exam: NORMAL ACCOMODATION, PERRL - Respiratory Exam Respiratory Exam: Decreased Breath Sounds, Rhonchi - Cardiovascular Exam Cardiovascular Exam: REGULAR RHYTHM, +S1, +S2. absent: Murmur - GI/Abdominal Exam GI & Abdominal Exam: Soft, Normal Bowel Sounds. absent: Tenderness Assessment and Plan (1) COPD exacerbation Status: Acute (2) Diabetes mellitus with neuropathy Status: Acute (3) Pneumonia Status: Acute (4) Tracheobronchitis Status: Acute
--- NOTE | 2017-04-28 21:34 | CP.PCM.PN ---
Subjective - Date & Time of Evaluation Date of Evaluation: 04/28/17 Time of Evaluation: 18:00 - Subjective Subjective: Pulmonary consult; covering Dr Rosado Reason for consult: COPD/Asthma and Tracheal strenosis The Patient was seen and examined at the bedside, Medical records reviewed, and management issues were discussed and formulated with the house staff, She is felling better today, improved resp status, tolerating Trch colar all day today , Patient feeling better today, reports less shortness of breath and improved productive cough that has been chronic issue. Denies fever/chills, chest pain or palpitations. Patient afebrile and hemodynamically stable Neck and chest CT revealed no evidence of tracheal stenosis, lizeth considering AP views Likely the epssode was in the sitting of mucous blugging. Objective - Vital Signs/Intake and Output Vital Signs (last 24 hours): Temp Pulse Resp BP Pulse Ox 99.3 F 89 16 130/75 94 L 04/28/17 20:00 04/28/17 20:02 04/28/17 20:02 04/28/17 20:02 04/28/17 20:02 Intake and Output: 04/28/17 04/29/17 18:59 06:59 Intake Total 520 0 Output Total 1570 Balance -1050 0 - Medications Medications: Current Medications Albuterol/Ipratropium (Duoneb 3 Mg/0.5 Mg (3 Ml) Ud) 3 ml INH RQ4 [facility] Last Admin: 04/28/17 20:11 Dose: 3 ml Enoxaparin Sodium (Lovenox) 40 mg SC DAILY [facility] Last Admin: 04/28/17 09:31 Dose: 40 mg Gabapentin (Neurontin) 800 mg PO TID [facility] Last Admin: 04/28/17 17:55 Dose: 800 mg Guaifenesin (Robitussin) 200 mg PO Q4H [facility] Last Admin: 04/28/17 20:00 Dose: Not Given Azithromycin 500 mg/ Sodium (Chloride) 250 mls @ 250 mls/hr IVPB DAILY [facility] Stop: 05/01/17 10:00 Last Admin: 04/28/17 09:33 Dose: 250 mls/hr Insulin Aspart (Novolog) 0 unit SC ACHS [facility] PRN Reason: Protocol Insulin Glargine (Lantus) 30 unit SC HS [facility] Last Admin: 04/27/17 22:00 Dose: Not Given Methylprednisolone (Solu-Medrol) 40 mg IVP Q6H [facility] Last Admin: 04/28/17 17:56 Dose: 40 mg Montelukast Sodium (Singulair) 10 mg PO [facility] Last Admin: 04/27/17 21:50 Dose: 10 mg Nystatin (Nystop Topical Powder) 1 applic TOP BID [facility] Last Admin: 04/28/17 17:55 Dose: Not Given Oxycodone/Acetaminophen (Percocet 5/325 Mg Tab) 1 tab PO Q4H PRN PRN Reason: Pain, moderate (4-7) Stop: 04/30/17 03:54 Last Admin: 04/28/17 05:45 Dose: 1 tab Pantoprazole Sodium (Protonix Ec Tab) 20 mg PO DAILY [facility] Last Admin: 04/28/17 09:33 Dose: 20 mg Quetiapine Fumarate (Seroquel Xr) 400 mg PO Q12 [facility] Last Admin: 04/28/17 09:32 Dose: 400 mg Sertraline HCl (Zoloft) 100 mg PO [facility] Last Admin: 04/27/17 21:50 Dose: 100 mg Trazodone HCl (Desyrel) 150 mg PO [facility] Last Admin: 04/27/17 21:50 Dose: 150 mg - Labs Labs: 04/28/17 06:18 04/28/17 06:18 - Constitutional Appears: Well, Non-toxic - Head Exam Head Exam: ATRAUMATIC, NORMAL INSPECTION - Eye Exam Pupil Exam: NORMAL ACCOMODATION, PERRL - ENT Exam ENT Exam: Mucous Membranes Moist - Neck Exam Neck Exam: Tenderness (Trach site C/D/I) - Respiratory Exam Respiratory Exam: Prolonged Expiratory Phase. absent: Accessory Muscle Use, Chest Wall Tenderness, Rales, Rhonchi, Wheezes - Cardiovascular Exam Cardiovascular Exam: REGULAR RHYTHM, RRR, +S1, +S2. absent: JVD - Extremities Exam Extremities Exam: Full ROM, Normal Capillary Refill, Normal Inspection. absent : Calf Tenderness, Joint Swelling, Pedal Edema, Tenderness - Back Exam Back Exam: absent: CVA tenderness (L), CVA tenderness (R) - Neurological Exam Neurological Exam: Alert, Awake, CN II-XII Intact, Oriented x3 Assessment and Plan (1) Tracheal stenosis Status: Acute (2) COPD exacerbation Status: Acute (3) Chr obstructive pulmonary disease w/ acute lower respiratory infxn Status: Acute (4) COPD exacerbation Status: Acute (5) Morbid obesity Status: Acute (6) Mucus plugging of bronchi Status: Acute
[2017-04-28] MEDS: (Lantus) Insulin Glargine, Recombinant SC SCH (22:10)
[2017-04-29] MEDS: Albuterol-Ipratrop 3 mg / 0.5 (3 ml) UD INH SCH ×6 (00:57→19:18)
[2017-04-29] MEDS: (Novolog) Insulin Aspart, Recombinant 100 u/ml 10 ml vial SC SCH ×5 (03:00→22:16)
[2017-04-29] MEDS: guaiFENesin 200 mg/10 ml Syrup UD PO SCH ×7 (04:00→23:50)
[2017-04-29] MEDS: MethylPREDNISolone 40 mg Vial IVP SCH ×4 (05:15→23:48)
[2017-04-29 06:21] LABS: HEMOGLOBIN 11.9 g/dL (11.0-16.0); LYMPH # 0.7 K/uL (1.0-4.3); LYMPH % 6.2 % (20.0-40.0); MEAN CELL VOLUME 81.4 fL (81.0-99.0); MEAN CORPUSCULAR HEMOGLOBIN 27.3 pg (27.0-31.0); MEAN CORPUSCULAR HGB CONC 33.6 g/dL (33.0-37.0); MEAN PLATELET VOLUME 8.9 fL (7.2-11.7); MONO # 0.4 K/uL (0.0-0.8); MONO % 3.8 % (0.0-10.0); NEUT # 10.5 K/uL (1.8-7.0); PLATELET COUNT 151 K/uL (130-400); RBC 4.35 Mil/uL (3.80-5.20); RED CELL DISTRIBUTION WIDTH 15.3 % (11.5-14.5); WHITE BLOOD COUNT 11.7 K/uL (4.8-10.8)
[2017-04-29 06:39] LABS: ALB/GLOB RATIO 0.9 (1.0-2.1); ALBUMIN 3.8 g/dL (3.5-5.0); ALT/SGPT 22 U/L (9-52); AST/SGOT 16 U/L (14-36); BLOOD UREA NITROGEN 28 mg/dL (7-17); CALCIUM 9.5 mg/dl (8.6-10.4); GFR AFRICAN-AMERICAN > 60; GFR NON-AFRICAN AMERICAN 57; MAGNESIUM 2.3 mg/dL (1.6-2.3)
[2017-04-29] MEDS: Enoxaparin 40 mg Syringe SC SCH (09:18)
[2017-04-29] MEDS: Azithromycin 500 MG in Sodium Chloride 0.9% 250 ML IVPB SCH (09:18)
[2017-04-29] MEDS: Pantoprazole 20 mg EC Tab PO SCH (09:19)
[2017-04-29] MEDS: QUEtiapine 200 mg XR Tab PO SCH ×2 (09:21→21:18)
[2017-04-29] MEDS ORDERED: Pneumococcal 23-Valent Vaccine IM ONE (10:00)
[2017-04-29] MEDS ORDERED: Influenza Vaccine 60 mcg/0.5 mL SYR (4YR UP) IM ONE (10:00)
[2017-04-29 10:37] LABS: ANISOCYTOSIS SLIGHT; LYMPHOCYTE 5 % (20-40); MONOCYTE 4 % (0-10); NEUTROPHIL 91 % (50-75); PLATELET ESTIMATE NORMAL (NORMAL); TOTAL CELLS COUNTED 100
[2017-04-29 10:38] LABS: MICROCYTOSIS SLIGHT
[2017-04-29] MEDS: Oxycodone/Acetaminophen 5/325 mg Tab PO PRN (12:26)
--- NOTE | 2017-04-29 14:35 | CP.PCM.PN ---
Subjective - Date & Time of Evaluation Date of Evaluation: 04/29/17 Time of Evaluation: 14:32 - Subjective Subjective: Pulmonary Follow up Reason for consult: COPD/Asthma and Tracheal strenosis The Patient was seen and examined at the bedside, Medical records reviewed, and management issues were discussed and formulated with the house staff, She is felling better today, improved resp status, tolerating Trch colar all day today, Patient reports less shortness of breath and improved productive cough that has been chronic issue. Denies fever/chills, chest pain or palpitations. Patient afebrile and hemodynamically stable Neck and chest CT revealed no evidence of tracheal stenosis, lizeth considering AP views Likely the episode of resp diatress was in the sitting of mucous blugging. Objective - Vital Signs/Intake and Output Vital Signs (last 24 hours): Temp Pulse Resp BP Pulse Ox 98.9 F 98 H 22 124/94 H 73 L 04/29/17 12:00 04/29/17 14:12 04/29/17 14:12 04/29/17 14:12 04/29/17 14:12 Intake and Output: 04/29/17 04/29/17 06:59 18:59 Intake Total 120 550 Output Total 300 Balance -180 550 - Medications Medications: Current Medications Albuterol/Ipratropium (Duoneb 3 Mg/0.5 Mg (3 Ml) Ud) 3 ml INH RQ4 [facility] Last Admin: 04/29/17 11:04 Dose: 3 ml Enoxaparin Sodium (Lovenox) 40 mg SC DAILY [facility] Last Admin: 04/29/17 09:18 Dose: 40 mg Gabapentin (Neurontin) 800 mg PO TID [facility] Last Admin: 04/29/17 09:27 Dose: 800 mg Guaifenesin (Robitussin) 200 mg PO Q4H [facility] Last Admin: 04/29/17 12:21 Dose: Not Given Azithromycin 500 mg/ Sodium (Chloride) 250 mls @ 250 mls/hr IVPB DAILY [facility] Stop: 05/01/17 10:00 Last Admin: 04/29/17 09:18 Dose: 250 mls/hr Insulin Aspart (Novolog) 0 unit SC ACHS [facility] PRN Reason: Protocol Last Admin: 04/29/17 12:20 Dose: 6 unit Insulin Glargine (Lantus) 30 unit SC HS [facility] Last Admin: 04/28/17 22:10 Dose: 30 u Methylprednisolone (Solu-Medrol) 40 mg IVP Q6H [facility] Last Admin: 04/29/17 12:23 Dose: 40 mg Montelukast Sodium (Singulair) 10 mg PO [facility] Last Admin: 04/28/17 22:10 Dose: 10 mg Nystatin (Nystop Topical Powder) 1 applic TOP BID [facility] Last Admin: 04/29/17 09:18 Dose: 1 applic Oxycodone/Acetaminophen (Percocet 5/325 Mg Tab) 1 tab PO Q4H PRN PRN Reason: Pain, moderate (4-7) Stop: 04/30/17 03:54 Last Admin: 04/29/17 12:26 Dose: 1 tab Pantoprazole Sodium (Protonix Ec Tab) 20 mg PO DAILY [facility] Last Admin: 04/29/17 09:19 Dose: 20 mg Quetiapine Fumarate (Seroquel Xr) 400 mg PO Q12 [facility] Last Admin: 04/29/17 09:21 Dose: 400 mg Sertraline HCl (Zoloft) 100 mg PO [facility] Last Admin: 04/28/17 22:10 Dose: 100 mg Trazodone HCl (Desyrel) 150 mg PO [facility] Last Admin: 04/28/17 22:25 Dose: 150 mg - Labs Labs: 04/29/17 06:11 04/29/17 06:08 - Constitutional Appears: Well, Non-toxic, No Acute Distress - Head Exam Head Exam: ATRAUMATIC, NORMAL INSPECTION - Eye Exam Eye Exam: EOMI, Normal appearance. absent: Conjunctival injection - Neck Exam Neck Exam: absent: Full ROM, Lymphadenopathy, Meningismus, Normal Inspection, Tenderness (tracheostomy site clean, intact), Thyromegaly - Respiratory Exam Respiratory Exam: Decreased Breath Sounds, Prolonged Expiratory Phase. absent: Accessory Muscle Use, Chest Wall Tenderness, Rales, Rhonchi, Wheezes - Cardiovascular Exam Cardiovascular Exam: +S2. absent: Bradycardia, Tachycardia, RRR, Murmur - GI/Abdominal Exam GI & Abdominal Exam: Distended, Soft, Normal Bowel Sounds. absent: Firm, Guarding, Rigid - Neurological Exam Neurological Exam: Alert, Awake, CN II-XII Intact, Oriented x3. absent: Motor Sensory Deficit - Psychiatric Exam Psychiatric exam: Anxious Assessment and Plan (1) Chr obstructive pulmonary disease w/ acute lower respiratory infxn Assessment & Plan: COPD Vs cough variant asthma S/p Trach Duonebs 3ml INH RQ4 Continue Singulair 10 mg PO HS Continue Solu-Medrol 40 mg IVP Q6H Status: Acute (2) Tracheal stenosis Assessment & Plan: Thoracic surgery help appretiated No CT evidence of tracheal stenosis CT chest/Nack Status: Acute (3) COPD exacerbation Status: Acute (4) Morbid obesity Assessment & Plan: Weight loss through diet and exercise regimen Status: Acute (5) Mucus plugging of bronchi Status: Acute - Assessment and Plan (Free Text) Assessment: DVT PPX: Lovenox 40 mg SC DAILY GI PPX: Pantoprazole 20 mg PO DAILY
--- NOTE | 2017-04-29 22:13 | CP.PCM.PN ---
Subjective - Date & Time of Evaluation Date of Evaluation: 04/29/17 Time of Evaluation: 19:40 - Subjective Subjective: Pt seen & evalauted at bedside Objective - Vital Signs/Intake and Output Vital Signs (last 24 hours): Temp Pulse Resp BP Pulse Ox 98 F 85 18 134/83 100 04/29/17 16:00 04/29/17 19:00 04/29/17 19:00 04/29/17 19:09 04/29/17 19:00 Intake and Output: 04/29/17 04/30/17 18:59 06:59 Intake Total 730 Output Total 900 0 Balance -170 0 - Medications Medications: Current Medications Albuterol/Ipratropium (Duoneb 3 Mg/0.5 Mg (3 Ml) Ud) 3 ml INH RQ4 [facility] Last Admin: 04/29/17 19:18 Dose: 3 ml Enoxaparin Sodium (Lovenox) 40 mg SC DAILY [facility] Last Admin: 04/29/17 09:18 Dose: 40 mg Gabapentin (Neurontin) 800 mg PO TID [facility] Last Admin: 04/29/17 17:00 Dose: 800 mg Guaifenesin (Robitussin) 200 mg PO Q4H [facility] Last Admin: 04/29/17 20:21 Dose: 200 mg Azithromycin 500 mg/ Sodium (Chloride) 250 mls @ 250 mls/hr IVPB DAILY [facility] Stop: 05/01/17 10:00 Last Admin: 04/29/17 09:18 Dose: 250 mls/hr Insulin Aspart (Novolog) 0 unit SC ACHS [facility] PRN Reason: Protocol Last Admin: 04/29/17 16:44 Dose: 2 unit Insulin Glargine (Lantus) 30 unit SC [facility] Last Admin: 04/29/17 21:16 Dose: 30 u Methylprednisolone (Solu-Medrol) 40 mg IVP Q6H [facility] Last Admin: 04/29/17 17:01 Dose: 40 mg Montelukast Sodium (Singulair) 10 mg PO [facility] Last Admin: 04/29/17 21:18 Dose: 10 mg Nystatin (Nystop Topical Powder) 1 applic TOP BID [facility] Last Admin: 04/29/17 17:00 Dose: 1 applic Oxycodone/Acetaminophen (Percocet 5/325 Mg Tab) 1 tab PO Q4H PRN PRN Reason: Pain, moderate (4-7) Stop: 04/30/17 03:54 Last Admin: 04/29/17 12:26 Dose: 1 tab Pantoprazole Sodium (Protonix Ec Tab) 20 mg PO DAILY [facility] Last Admin: 04/29/17 09:19 Dose: 20 mg Quetiapine Fumarate (Seroquel Xr) 400 mg PO Q12 [facility] Last Admin: 04/29/17 21:18 Dose: 400 mg Sertraline HCl (Zoloft) 100 mg PO HS [facility] Last Admin: 04/29/17 21:19 Dose: 100 mg Trazodone HCl (Desyrel) 150 mg PO HS [facility] Last Admin: 04/29/17 21:16 Dose: 150 mg - Labs Labs: 04/29/17 06:11 04/29/17 06:08
[2017-04-29] MEDS: (Lantus) Insulin Glargine, Recombinant SC SCH (22:16)
[2017-04-30] MEDS: Albuterol-Ipratrop 3 mg / 0.5 (3 ml) UD INH SCH ×6 (00:57→19:19)
[2017-04-30] MEDS: guaiFENesin 200 mg/10 ml Syrup UD PO SCH ×5 (04:46→21:23)
[2017-04-30] MEDS: MethylPREDNISolone 40 mg Vial IVP SCH ×3 (05:43→21:23)
[2017-04-30] MEDS: (Novolog) Insulin Aspart, Recombinant 100 u/ml 10 ml vial SC SCH ×4 (07:52→21:24)
[2017-04-30] MEDS: Enoxaparin 40 mg Syringe SC SCH (09:23)
[2017-04-30] MEDS: QUEtiapine 200 mg XR Tab PO SCH ×2 (09:23→21:40)
[2017-04-30] MEDS: Azithromycin 500 MG in Sodium Chloride 0.9% 250 ML IVPB SCH (09:24)
[2017-04-30] MEDS: Pantoprazole 20 mg EC Tab PO SCH (09:28)
[2017-04-30 11:23] VITALS: RESP 20
[2017-04-30] MEDS: Oxycodone/Acetaminophen 5/325 mg Tab PO PRN (12:10)
--- NOTE | 2017-04-30 20:52 | CP.PCM.PN ---
Subjective - Date & Time of Evaluation Date of Evaluation: 04/30/17 Time of Evaluation: 19:00 - Subjective Subjective: Pulmonary Follow up Reason for consult: COPD/Asthma and Tracheal strenosis The Patient was seen and examined at the bedside, Medical records reviewed, and management issues were discussed and formulated with the house staff, She is felling better today, improved resp status, tolerating Trch colar all day today, Patient reports less shortness of breath and improved productive cough that has been chronic issue. Denies fever/chills, chest pain or palpitations. Patient afebrile and hemodynamically stable Neck and chest CT revealed no evidence of tracheal stenosis, lizeth considering AP views Likely the episode of resp diatress was in the sitting of mucous blugging. Objective - Vital Signs/Intake and Output Vital Signs (last 24 hours): Temp Pulse Resp BP Pulse Ox 98.2 F 68 20 133/80 95 04/30/17 16:00 04/30/17 16:00 04/30/17 16:00 04/30/17 16:00 04/30/17 16:00 Intake and Output: 04/30/17 05/01/17 18:59 06:59 Intake Total 910 Output Total 400 Balance 510 - Medications Medications: Current Medications Albuterol/Ipratropium (Duoneb 3 Mg/0.5 Mg (3 Ml) Ud) 3 ml INH RQ4 [facility] Last Admin: 04/30/17 19:19 Dose: 3 ml Enoxaparin Sodium (Lovenox) 40 mg SC DAILY [facility] Last Admin: 04/30/17 09:23 Dose: 40 mg Gabapentin (Neurontin) 800 mg PO TID [facility] Last Admin: 04/30/17 18:02 Dose: 800 mg Guaifenesin (Robitussin) 200 mg PO Q4H [facility] Last Admin: 04/30/17 18:13 Dose: Not Given Azithromycin 500 mg/ Sodium (Chloride) 250 mls @ 250 mls/hr IVPB DAILY [facility] Stop: 05/01/17 10:00 Last Admin: 04/30/17 09:24 Dose: 250 mls/hr Insulin Aspart (Novolog) 0 unit SC ACHS [facility] PRN Reason: Protocol Last Admin: 04/30/17 18:06 Dose: 4 unit Insulin Glargine (Lantus) 30 unit SC [facility] Last Admin: 04/29/17 22:16 Dose: 30 u Lamotrigine (Lamictal) 100 mg PO Q12H [facility] Last Admin: 04/30/17 14:54 Dose: 100 mg Lorazepam (Ativan) 2 mg PO BID PRN PRN Reason: Anxiety Last Admin: 04/30/17 16:09 Dose: 2 mg Methylprednisolone (Solu-Medrol) 40 mg IVP Q8 [facility] Montelukast Sodium (Singulair) 10 mg PO [facility] Last Admin: 04/29/17 21:18 Dose: 10 mg Nystatin (Nystop Topical Powder) 1 applic TOP BID [facility] Last Admin: 04/30/17 18:07 Dose: 1 applic Oxycodone/Acetaminophen (Percocet 5/325 Mg Tab) 1 tab PO Q4H PRN PRN Reason: Pain, severe (8-10) Stop: 05/03/17 12:01 Last Admin: 04/30/17 12:10 Dose: 1 tab Pantoprazole Sodium (Protonix Ec Tab) 20 mg PO DAILY [facility] Last Admin: 04/30/17 09:28 Dose: 20 mg Quetiapine Fumarate (Seroquel Xr) 400 mg PO Q12 [facility] Last Admin: 04/30/17 09:23 Dose: 400 mg Sertraline HCl (Zoloft) 100 mg PO Q12H [facility] Last Admin: 04/30/17 14:54 Dose: 100 mg Trazodone HCl (Desyrel) 150 mg PO [facility] Last Admin: 04/29/17 21:16 Dose: 150 mg - Labs Labs: 04/29/17 06:11 04/29/17 06:08 Assessment and Plan (1) Chr obstructive pulmonary disease w/ acute lower respiratory infxn Assessment & Plan: COPD Vs cough variant asthma S/p Trach Duonebs 3ml INH RQ4 Continue Singulair 10 mg PO HS Continue Solu-Medrol 40 mg IVP Q6H Status: Acute (2) Tracheal stenosis Assessment & Plan: Thoracic surgery help appretiated No CT evidence of tracheal stenosis CT chest/Nack Status: Acute (3) COPD exacerbation Status: Acute (4) Morbid obesity Assessment & Plan: Weight loss through diet and exercise regimen Status: Acute (5) Mucus plugging of bronchi Status: Acute - Assessment and Plan (Free Text) Assessment: DVT PPX: Lovenox 40 mg SC DAILY GI PPX: Pantoprazole 20 mg PO DAILY
[2017-04-30] MEDS: (Lantus) Insulin Glargine, Recombinant SC SCH (21:23)
--- NOTE | 2017-04-30 23:20 | CP.PCM.PN ---
Subjective - Date & Time of Evaluation Date of Evaluation: 04/30/17 Time of Evaluation: 18:00 - Subjective Subjective: Pt is doing better, requires less oxygen, denies ay chest pain Objective - Vital Signs/Intake and Output Vital Signs (last 24 hours): Temp Pulse Resp BP Pulse Ox 98.2 F 68 20 133/80 95 04/30/17 16:00 04/30/17 16:00 04/30/17 16:00 04/30/17 16:00 04/30/17 16:00 Intake and Output: 04/30/17 05/01/17 18:59 06:59 Intake Total 910 Output Total 400 Balance 510 - Medications Medications: Current Medications Albuterol/Ipratropium (Duoneb 3 Mg/0.5 Mg (3 Ml) Ud) 3 ml INH RQ4 [facility] Last Admin: 04/30/17 19:19 Dose: 3 ml Enoxaparin Sodium (Lovenox) 40 mg SC DAILY [facility] Last Admin: 04/30/17 09:23 Dose: 40 mg Gabapentin (Neurontin) 800 mg PO TID [facility] Last Admin: 04/30/17 18:02 Dose: 800 mg Guaifenesin (Robitussin) 200 mg PO Q4H [facility] Last Admin: 04/30/17 21:23 Dose: 200 mg Azithromycin 500 mg/ Sodium (Chloride) 250 mls @ 250 mls/hr IVPB DAILY [facility] Stop: 05/01/17 10:00 Last Admin: 04/30/17 09:24 Dose: 250 mls/hr Insulin Aspart (Novolog) 0 unit SC ACHS [facility] PRN Reason: Protocol Last Admin: 04/30/17 21:24 Dose: Not Given Insulin Glargine (Lantus) 30 unit SC [facility] Last Admin: 04/30/17 21:23 Dose: 30 u Lamotrigine (Lamictal) 100 mg PO Q12H [facility] Last Admin: 04/30/17 14:54 Dose: 100 mg Lorazepam (Ativan) 2 mg PO BID PRN PRN Reason: Anxiety Last Admin: 04/30/17 16:09 Dose: 2 mg Methylprednisolone (Solu-Medrol) 40 mg IVP Q8 [facility] Last Admin: 04/30/17 21:23 Dose: 40 mg Montelukast Sodium (Singulair) 10 mg PO [facility] Last Admin: 04/30/17 21:22 Dose: 10 mg Nystatin (Nystop Topical Powder) 1 applic TOP BID [facility] Last Admin: 04/30/17 18:07 Dose: 1 applic Oxycodone/Acetaminophen (Percocet 5/325 Mg Tab) 1 tab PO Q4H PRN PRN Reason: Pain, severe (8-10) Stop: 05/03/17 12:01 Last Admin: 04/30/17 12:10 Dose: 1 tab Pantoprazole Sodium (Protonix Ec Tab) 20 mg PO DAILY [facility] Last Admin: 04/30/17 09:28 Dose: 20 mg Quetiapine Fumarate (Seroquel Xr) 400 mg PO Q12 [facility] Last Admin: 04/30/17 21:40 Dose: 400 mg Sertraline HCl (Zoloft) 100 mg PO Q12H [facility] Last Admin: 04/30/17 14:54 Dose: 100 mg Trazodone HCl (Desyrel) 150 mg PO HS [facility] Last Admin: 04/30/17 21:22 Dose: 150 mg - Labs Labs: 04/29/17 06:11 04/29/17 06:08 - Constitutional Appears: No Acute Distress - Head Exam Head Exam: ATRAUMATIC, NORMAL INSPECTION, NORMOCEPHALIC - Eye Exam Eye Exam: EOMI, Normal appearance, PERRL Pupil Exam: NORMAL ACCOMODATION, PERRL - Respiratory Exam Respiratory Exam: Decreased Breath Sounds, Rales, Rhonchi - Cardiovascular Exam Cardiovascular Exam: REGULAR RHYTHM, +S1, +S2. absent: Murmur - GI/Abdominal Exam GI & Abdominal Exam: Soft, Normal Bowel Sounds. absent: Tenderness - Rectal Exam Rectal Exam: Deferred Assessment and Plan (1) COPD exacerbation Assessment & Plan: oxygen down to 50% pt is improving Status: Acute (2) Diabetes mellitus with neuropathy Status: Acute (3) Pneumonia Status: Acute (4) Tracheobronchitis Status: Acute (5) Thromboembolic pulmonary hypertension Status: Acute
--- NOTE | 2017-05-01 00:09 | CON ---
DATE: CHIEF COMPLAINT AND REASON FOR CONSULTATION: The patient was referred by Dr. Khan for evaluation and co-management of patient's history of schizoaffective disorder, bipolar type, multiple psych meds. The patient was admitted here for exacerbation of COPD. HISTORY OF PRESENT ILLNESS: The patient is a 61-year-old female who was well known to me through the years, history of COPD, status post trach. The patient was admitted with shortness of breath. The patient was taking nebulizer treatment at home, but did not improve, was admitted here for exacerbation of COPD. The patient had history of respiratory failure in the past. The patient was referred. The patient was complaining of anxiety and feeling depressed. The patient was taking multiple psych meds for many many years. The patient is on Seroquel 400 mg q.12 hours. The patient is on Zoloft 100 mg at bedtime, but patient used to take it 100 mg twice a day. The patient was used to take Lamictal 100 mg twice a day before, trazodone 150 mg at bedtime, and Ativan 2 mg p.o. b.i.d. which she was taking before. She states she has been having anxiety. The patient also is requesting for diet to be advanced as she was on pureed food. The patient states that she was hungry. The patient still has a trach but breathing much better. She lives with her daughter, Toshia, who has been taking care of her for many many years. The patient states that she has trouble sleeping, this is a chronic problem of hers as well as increasing anxiety and feeling depression once the meds were readjusted. PAST PSYCHIATRIC HISTORY: States a long history of psych illness, history of schizoaffective disorder, history of drug over dose in the past and psych admission. PAST MEDICAL HISTORY: History of respiratory failure, status post trach, history of COPD, CHF, obesity, hypertension, pneumonia, seizure, and sleep apnea. As stated has history of pneumonia, history of diabetes, sepsis, history of COPD, history of status post trach, history of syncope, history of chronic pain, ALLERGIES: THE PATIENT IS ALLERGIC TO ASPIRIN, ROCEPHIN, MOTRIN, IODINE, AND RASPBERRY. PSYCHOSOCIAL HISTORY: The patient is able. She has 3 daughters. She lives with Toshia, one of them. PHYSICAL EXAMINATION: VITAL SIGNS: Temperature 98.7, pulse 73, blood pressure 133/89, respirations 20, and oxygen saturation is 98% trach collar. LABORATORY DATA: Review of her labs; the patient's blood sugar is 258. REVIEW OF SYSTEMS: GENERAL: The patient is alert, verbal, seen in her room with a trach. She is speaking in whispers. The patient states that she feels anxious, and asking for Ativan and also complaining that she is feeling hungry and wants her diet to be advanced. The patient reports that she is feeling depressed but agitated. She states she is not sleeping well at night. SKIN: No diaphoresis. HEENT: No headache or dizziness. NECK: Has trach collar. RESPIRATORY: No acute respiratory distress. CARDIOVASCULAR: No chest pain. GASTROINTESTINAL: The patient is feeling hungry. EXTREMITIES: The patient has chronic neuropathic pain. MUSCULOSKELETAL: Feels weak. NEUROLOGIC: Alert and oriented x3. GENITOURINARY: No dysuria. MENTAL STATUS EXAMINATION: Obese female, looks her stated age, about 5 feet, and weight is 208 pounds. The patient is anxious, depressed, patient is asking for Ativan as well as to adjust the meds as she was not sleeping. Affect is reactive. Mood as stated is anxious, depressed. Oriented x3. Thought process is coherent. Thought content, no paranoia. No suicidal or homicidal ideation. The patient is complaining of chronic insomnia and anxiety. She wants her meds to be changed. No paranoia. Attention and memory seem to be fair. Insight and judgment fair. Impulse control is fair. IMPRESSION: History of schizoaffective disorder, bipolar type as well as history of respiratory failure, chronic obstructive pulmonary disease, obesity, congestive heart failure, pneumonia, and status post trach. PLAN AND RECOMMENDATION: The patient is seen, meds reviewed. We will readjust the patient's meds. We will continue the Trazodone 100 mg p.o. at bedtime. The patient to have Ativan 2 mg p.o. b.i.d., p.r.n. for anxiety, which she has been taking before for many years. We will add Lamictal 100 mg q.12 as well as the change the dose of Zoloft to 100 mg q.12, which is just for the baseline dose and then continue the Seroquel 400 mg q.12. Continue treatment plan as outlined, and her diet to be advanced. Continue antibiotics as ordered. Thank you for the consult. Wellington Dejesus MD
[2017-05-01] MEDS: guaiFENesin 200 mg/10 ml Syrup UD PO SCH ×5 (00:10→16:55)
[2017-05-01] MEDS: Albuterol-Ipratrop 3 mg / 0.5 (3 ml) UD INH SCH ×5 (00:28→16:04)
[2017-05-01] MEDS: Oxycodone/Acetaminophen 5/325 mg Tab PO PRN ×3 (01:23→13:05)
[2017-05-01] MEDS: MethylPREDNISolone 40 mg Vial IVP SCH ×2 (05:08→13:43)
[2017-05-01] MEDS: (Novolog) Insulin Aspart, Recombinant 100 u/ml 10 ml vial SC SCH ×4 (08:19→16:47)
[2017-05-01] MEDS: Pantoprazole 20 mg EC Tab PO SCH (10:28)
[2017-05-01] MEDS: Enoxaparin 40 mg Syringe SC SCH (10:28)
[2017-05-01] MEDS: QUEtiapine 200 mg XR Tab PO SCH (10:28)
[2017-05-01] MEDS: Azithromycin 500 MG in Sodium Chloride 0.9% 250 ML IVPB SCH (10:55)
--- NOTE | 2017-05-01 12:10 | PN ---
DATE: SUBJECTIVE: The patient is seen. The patient's meds were readjusted yesterday, the patient is feeling much better, less anxious. She also agreed to go for subacute rehab possibly to [facility] as she was there several times before in the past and likes the place when she gets medically cleared. Other than that, the patient is asking to eat regular food. No behavior problems noted since recent changes of meds. PHYSICAL EXAMINATION: VITAL SIGNS: Temperature 98.3, pulse 73, blood pressure 128/79, respirations 20 and oxygen saturations 97% in trach collar. REVIEW OF SYSTEMS: GENERAL: She is alert and oriented x3. Speaks in whisper, she states is feeling better, seen in her room. SKIN: No diaphoresis. HEENT: No headache or dizziness. NECK: Has trach collar, complaining of difficulty breathing. RESPIRATORY: Not in acute respiratory distress. CARDIOVASCULAR: No chest pain. GASTROINTESTINAL: The patient wants to eat regular food. No nausea, no vomiting. EXTREMITIES: The patient is moving extremities. MUSCULOSKELETAL: Feels weak. NEUROLOGIC: Alert and oriented x3. GENITOURINARY: No urinary problems. MENTAL STATUS EXAMINATION: Obese female, who looks stated age in her hospital gown, seen in her room oriented x3. Mood is calmer. Affects is reactive. Speech is spontaneous. Thought process, coherent. Thought content, the patient has agreed to go for subacute rehab at [facility] as she was there several times in the past. No psychosis. No suicidal or homicidal ideation. Attention and memory seem to be fair. Insight and judgement are fair. Impulse control is fair. IMPRESSION: History of schizoaffective disorder, bipolar type, improved as well as history of respiratory failure, exacerbation of chronic obstructive pulmonary disease, obesity, diabetes and hypertension. PLAN AND RECOMMENDATIONS: The patient is seen, meds reviewed. The patient is awaiting medical clearance to go for subacute rehab. Continue present psych meds as ordered. Continue present management as ordered. The patient is improving clinically. We will follow her at the [facility] as needed, but for now we will keep her with current regimen of psych meds. Wellington Dejesus MD [facility] # [id number]
--- NOTE | 2017-05-01 16:06 | CP.PCM.PN ---
Subjective - Date & Time of Evaluation Date of Evaluation: 05/01/17 Time of Evaluation: 16:05 - Subjective Subjective: Pulmonary follow up; covering Dr Rosado The patient was seen and examined at the bedside, medical records reviewed, and management issues were discussed and formulated with the house staff. 61 year old female with PMHx of COPD and tracheostomy who presented to the ED on 04/26 for evaluation of shortness of breath Hospital course noted for transfer to ICU for acute respiratory distress in the setting of coughing spell, neck and chest CT revealing no evidence of tracheal stenosis Neck and chest CT revealed no evidence of tracheal stenosis, lizeth considering AP views Likely the episode of respiratory distress was in the setting of mucous plugging Last 24 hour events: Feeling better today, improving respiratory status, tolerating trach collar all day Reports less shortness of breath and improved productive cough that has been chronic issue Denies fever/chills, chest pain Afebrile Hemodynamically stable Objective - Vital Signs/Intake and Output Vital Signs (last 24 hours): Temp Pulse Resp BP Pulse Ox 98.3 F 73 20 128/79 97 05/01/17 08:59 05/01/17 10:15 05/01/17 08:59 05/01/17 10:15 05/01/17 10:15 Intake and Output: 05/01/17 05/01/17 06:59 18:59 Intake Total 840 Balance 840 - Medications Medications: Current Medications Albuterol/Ipratropium (Duoneb 3 Mg/0.5 Mg (3 Ml) Ud) 3 ml INH RQ4 [facility] Last Admin: 05/01/17 13:43 Dose: 3 ml Enoxaparin Sodium (Lovenox) 40 mg SC DAILY [facility] Last Admin: 05/01/17 10:28 Dose: 40 mg Gabapentin (Neurontin) 800 mg PO TID [facility] Last Admin: 05/01/17 13:43 Dose: 800 mg Guaifenesin (Robitussin) 200 mg PO Q4H [facility] Last Admin: 05/01/17 12:15 Dose: Not Given Insulin Aspart (Novolog) 0 unit SC ACHS [facility] PRN Reason: Protocol Last Admin: 05/01/17 13:40 Dose: 6 unit Insulin Glargine (Lantus) 30 unit SC HS [facility] Last Admin: 04/30/17 21:23 Dose: 30 u Lamotrigine (Lamictal) 100 mg PO Q12H [facility] Last Admin: 05/01/17 13:44 Dose: 100 mg Lorazepam (Ativan) 2 mg PO BID PRN PRN Reason: Anxiety Last Admin: 04/30/17 16:09 Dose: 2 mg Methylprednisolone (Solu-Medrol) 40 mg IVP Q8 [facility] Last Admin: 05/01/17 13:43 Dose: 40 mg Montelukast Sodium (Singulair) 10 mg PO [facility] Last Admin: 04/30/17 21:22 Dose: 10 mg Nystatin (Nystop Topical Powder) 1 applic TOP BID [facility] Last Admin: 05/01/17 10:29 Dose: 1 applic Oxycodone/Acetaminophen (Percocet 5/325 Mg Tab) 1 tab PO Q4H PRN PRN Reason: Pain, severe (8-10) Stop: 05/03/17 12:01 Last Admin: 05/01/17 13:05 Dose: 1 tab Pantoprazole Sodium (Protonix Ec Tab) 20 mg PO DAILY [facility] Last Admin: 05/01/17 10:28 Dose: 20 mg Quetiapine Fumarate (Seroquel Xr) 400 mg PO Q12 [facility] Stop: 05/01/17 23:00 Last Admin: 05/01/17 10:28 Dose: 400 mg Quetiapine Fumarate (Seroquel) 400 mg PO Q12 [facility] Sertraline HCl (Zoloft) 100 mg PO Q12H [facility] Last Admin: 05/01/17 13:44 Dose: 100 mg Trazodone HCl (Desyrel) 150 mg PO [facility] Last Admin: 04/30/17 21:22 Dose: 150 mg - Labs Labs: 04/29/17 06:11 04/29/17 06:08 Assessment and Plan (1) Chr obstructive pulmonary disease w/ acute lower respiratory infxn Assessment & Plan: COPD Vs cough variant asthma S/p Trach Duonebs 3ml INH RQ4 Continue Singulair 10 mg PO HS Continue Solu-Medrol 40 mg IVP Q6H Status: Acute (2) Tracheal stenosis Assessment & Plan: Thoracic surgery help appretiated No CT evidence of tracheal stenosis CT chest/Nack Status: Acute (3) COPD exacerbation Status: Acute (4) Morbid obesity Assessment & Plan: Weight loss through diet and exercise regimen Status: Acute (5) Mucus plugging of bronchi Status: Acute - Assessment and Plan (Free Text) Assessment: DVT PPX: Lovenox 40 mg SC DAILY GI PPX: Pantoprazole 20 mg PO DAILY
[2017-05-01 16:57] VITALS: BP 146/84; PULSE 76; TEMP 98.5; O2SAT 95
--- NOTE | 2017-05-01 17:37 | CP.PCM.PN ---
Subjective - Date & Time of Evaluation Date of Evaluation: 05/01/17 Time of Evaluation: 11:00 - Subjective Subjective: Alert, awake, on trach collar, FIO2 AT 35% , NO ACUTE DISTRESS NOTED. Objective - Vital Signs/Intake and Output Vital Signs (last 24 hours): Temp Pulse Resp BP Pulse Ox 98.5 F 76 20 146/84 95 05/01/17 16:00 05/01/17 16:00 05/01/17 16:00 05/01/17 16:00 05/01/17 16:00 Intake and Output: 05/01/17 05/01/17 06:59 18:59 Intake Total 840 Balance 840 - Medications Medications: Current Medications Albuterol/Ipratropium (Duoneb 3 Mg/0.5 Mg (3 Ml) Ud) 3 ml INH RQ4 [facility] Last Admin: 05/01/17 16:04 Dose: 3 ml Enoxaparin Sodium (Lovenox) 40 mg SC DAILY [facility] Last Admin: 05/01/17 10:28 Dose: 40 mg Gabapentin (Neurontin) 800 mg PO TID [facility] Last Admin: 05/01/17 13:43 Dose: 800 mg Guaifenesin (Robitussin) 200 mg PO Q4H [facility] Last Admin: 05/01/17 16:55 Dose: 200 mg Insulin Aspart (Novolog) 0 unit SC [facility] PRN Reason: Protocol Last Admin: 05/01/17 16:47 Dose: 4 unit Insulin Glargine (Lantus) 30 unit SC [facility] Last Admin: 04/30/17 21:23 Dose: 30 u Lamotrigine (Lamictal) 100 mg PO Q12H [facility] Last Admin: 05/01/17 13:44 Dose: 100 mg Lorazepam (Ativan) 2 mg PO BID PRN PRN Reason: Anxiety Last Admin: 04/30/17 16:09 Dose: 2 mg Methylprednisolone (Solu-Medrol) 40 mg IVP Q8 [facility] Last Admin: 05/01/17 13:43 Dose: 40 mg Montelukast Sodium (Singulair) 10 mg PO HS [facility] Last Admin: 04/30/17 21:22 Dose: 10 mg Nystatin (Nystop Topical Powder) 1 applic TOP BID [facility] Last Admin: 05/01/17 10:29 Dose: 1 applic Oxycodone/Acetaminophen (Percocet 5/325 Mg Tab) 1 tab PO Q4H PRN PRN Reason: Pain, severe (8-10) Stop: 05/03/17 12:01 Last Admin: 05/01/17 13:05 Dose: 1 tab Pantoprazole Sodium (Protonix Ec Tab) 20 mg PO DAILY [facility] Last Admin: 05/01/17 10:28 Dose: 20 mg Quetiapine Fumarate (Seroquel Xr) 400 mg PO Q12 [facility] Stop: 05/01/17 23:00 Last Admin: 05/01/17 10:28 Dose: 400 mg Quetiapine Fumarate (Seroquel) 400 mg PO Q12 [facility] Sertraline HCl (Zoloft) 100 mg PO Q12H [facility] Last Admin: 05/01/17 13:44 Dose: 100 mg Trazodone HCl (Desyrel) 150 mg PO HS [facility] Last Admin: 04/30/17 21:22 Dose: 150 mg - Labs Labs: 04/29/17 06:11 04/29/17 06:08 Assessment and Plan - Assessment and Plan (Free Text) Assessment: Patient is admitted with respiratory distress, feeling much better on trach collar. Seen and examined, alert, orientedx3, tolerating trach collar well, no acute distress. Seen by DR Khan, plan to discharge home on augmentin and medrol dose pack. Patient has oxygen and nebulizer set up at home. Meds called in to her pharmacy, transportation and home care arranged. Advised to follow up with PMD in 1 week.
--- NOTE | 2017-05-01 17:41 | PCM.HF ---
Heart Failure Core Measure - Heart Failure Ejection Fraction: 40 % or Greater (EF >70%) SHAWNA Inhibitor Prescribed: No Beta-Facundo Prescribed: None Contraindication/Reason for not providing: COPD AnticoagulationTherapy for Atrial Fibrillation/Atrialflutter: No Contraindication/Reason for not providing: no afib Hydralazine Nitrate Prescribed: No Contraindication/Reason for not providing: ef >40% Implantable Cardioverter Defibrillator Therapy: No Contraindication/Reason for not providing: EF >405 Cardiac Resynchronization Therapy Prescribed: No Contraindication/Reason for not providing: not indicated - Follow up Will be discharged to: Home Follow Up Date (must be within 7 days from discharge): 05/07/17 Follow Up Time: 09:00
--- NOTE | 2017-05-01 18:00 | CARD ---
APPROVED REPORT EXAM: Two-dimensional and M-mode echocardiogram with Doppler and color Doppler. Other Information Technically limited study due to body habitus. INDICATION Dyspnea Congestive Heart Failure RISK FACTORS Hypertension Obesity Diabetes 2D DIMENSIONS IVSd1.3 (0.7-1.1cm)LVDd4.0 (3.9-5.9cm) LVOT Diameter2.0 (1.8-2.4cm)PWd1.2 (0.7-1.1cm) LVDs2.5 (2.5-4.0cm)FS (%) 37.7 % LVEF (%)68.5 (>50%) M-Mode DIMENSIONS Left Atrium (MM)4.36 (2.5-4.0cm)Aortic Root2.66 (2.2-3.7cm) Aortic Cusp Exc.1.69 (1.5-2.0cm) Aortic Valve AoV Peak Kfluljeu823.5cm/sAoV VTI71.4cmAO Peak GR.38mmHg LVOT Peak Wbjjhmoz73.0cm/sLVOT VTI25.39cmAO Mean GR.24mmHg DIEUDONNE (VMAX)0.99qz7DCT (VTI)1.41ex9ZT P 1/2 Uysx702ek Mitral Valve MV E Lfcmbmtc59.5cm/sMV A Tldjvhdh95.6cm/sE/A ratio1.2 TDI E/Lateral E'0.0E/Medial E'0.0 Tricuspid Valve TR Peak Pozykcmg313tr/sTR Peak Gr.02coYgETYN58voLw LEFT VENTRICLE The left ventricle is normal size. There is mild concentric left ventricular hypertrophy. The left ventricular function is normal. The left ventricular ejection fraction is within the normal range. There is normal LV segmental wall motion. Transmitral Doppler flow pattern is Grade I-abnormal relaxation pattern. RIGHT VENTRICLE The right ventricle is normal size. There is normal right ventricular wall thickness. The right ventricular systolic function is normal. ATRIA The left atrium size is normal. The right atrium size is normal. AORTIC VALVE The aortic valve is moderately calcified and possibly bicusped No aortic regurgitation is present. There is moderate valvular aortic stenosis. MITRAL VALVE The mitral valve is moderately thickened. There is no mitral valve stenosis. There is no mitral valve regurgitation noted. TRICUSPID VALVE The tricuspid valve is normal in structure. GREAT VESSELS The aortic root is normal in size. The IVC is normal in size and collapses >50% with inspiration. PERICARDIAL EFFUSION There is a trace loculated anterior pericardial effusion. <Conclusion> There is mild concentric left ventricular hypertrophy. The left ventricular function is normal. The left ventricular ejection fraction is within the normal range. There is normal LV segmental wall motion. Transmitral Doppler flow pattern is Grade I-abnormal relaxation pattern. The aortic valve is moderately calcified and possibly bicusped There is moderate valvular aortic stenosis.
--- NOTE | 2017-05-01 23:18 | CP.PCM.DIS ---
Provider - Provider Date of Admission: 04/27/17 02:54 Attending physician: Ad Khan MD Diagnosis - Discharge Diagnosis (1) COPD exacerbation Status: Acute (2) Diabetes mellitus with neuropathy Status: Acute (3) Pneumonia Status: Acute (4) Tracheobronchitis Status: Acute (5) Thromboembolic pulmonary hypertension Status: Acute Hospital Course - Lab Results Lab Results: Micro Results 04/30/17 14:00 Nose MRSA Culture - Final MRSA DETECTED 04/26/17 23:45 Blood Blood Culture - Preliminary NO GROWTH AFTER 4 DAYS 04/26/17 23:45 Blood Blood Culture - Preliminary NO GROWTH AFTER 4 DAYS Most Recent Lab Values WBC 11.7 K/uL (4.8-10.8) H 04/29/17 06:11 RBC 4.35 Mil/uL (3.80-5.20) 04/29/17 06:11 Hgb 11.9 g/dL (11.0-16.0) 04/29/17 06:11 Hct 35.4 % (34.0-47.0) 04/29/17 06:11 MCV 81.4 fL (81.0-99.0) 04/29/17 06:11 MCH 27.3 pg (27.0-31.0) 04/29/17 06:11 MCHC 33.6 g/dL (33.0-37.0) 04/29/17 06:11 RDW 15.3 % (11.5-14.5) H 04/29/17 06:11 Plt Count 151 K/uL (130-400) 04/29/17 06:11 MPV 8.9 fL (7.2-11.7) 04/29/17 06:11 Neut % (Auto) 90.0 % (50.0-75.0) H 04/29/17 06:11 Lymph % (Auto) 6.2 % (20.0-40.0) L 04/29/17 06:11 Motley % (Auto) 3.8 % (0.0-10.0) 04/29/17 06:11 Eos % (Auto) 0.0 % (0.0-4.0) 04/29/17 06:11 Baso % (Auto) 0.0 % (0.0-2.0) 04/29/17 06:11 Neut # (Auto) 10.5 K/uL (1.8-7.0) H 04/29/17 06:11 Lymph # (Auto) 0.7 K/uL (1.0-4.3) L 04/29/17 06:11 Motley # (Auto) 0.4 K/uL (0.0-0.8) 04/29/17 06:11 Eos # (Auto) 0.0 K/uL (0.0-0.7) 04/29/17 06:11 Baso # (Auto) 0.0 K/uL (0.0-0.2) 04/29/17 06:11 Neutrophils % (Manual) 91 % (50-75) H 04/29/17 06:11 Lymphocytes % (Manual) 5 % (20-40) L 04/29/17 06:11 Monocytes % (Manual) 4 % (0-10) 04/29/17 06:11 Platelet Estimate Normal (NORMAL) 04/29/17 06:11 Anisocytosis (manual) Slight 04/29/17 06:11 Microcytosis (manual) Slight 04/29/17 06:11 Puncture Site Rb 04/27/17 08:35 pCO2 45 mm/Hg (35-45) 04/27/17 08:35 pO2 111 mm/Hg (80-100) H 04/27/17 08:35 HCO3 22.5 mmol/L (21-28) 04/27/17 08:35 ABG pH 7.32 (7.35-7.45) L 04/27/17 08:35 ABG Total CO2 24.6 mmol/L (22-28) 04/27/17 08:35 ABG O2 Saturation 99.0 % (95-98) H 04/27/17 08:35 ABG Base Excess -3.1 mmol/L (-2.0-3.0) L 04/27/17 08:35 Rob Test Na 04/27/17 08:35 ABG Potassium 4.8 mmol/L (3.6-5.2) 04/27/17 08:35 A-a O2 Difference 118.0 mm/Hg 04/27/17 08:35 Respiratory Index 1.1 04/27/17 08:35 Sodium 140.0 mmol/l (132-148) 04/27/17 08:35 Chloride 106.0 mmol/L (98-107) 04/27/17 08:35 Glucose 461 mg/dl (65-105) H* D 04/27/17 08:35 Lactate 3.3 mmol/L (0.7-2.1) H 04/27/17 08:35 FiO2 40.0 % 04/27/17 08:35 Crit Value Called To Dr rylee gilman 04/27/17 08:35 Crit Value Called By Cherie cadena tab machine operator 04/27/17 08:35 Crit Value Read Back Y 04/27/17 08:35 Blood Gas Notified Time 840 04/27/17 08:35 Sodium 142 mmol/L (132-148) 04/29/17 06:08 Potassium 4.4 mmol/L (3.6-5.2) 04/29/17 06:08 Chloride 101 mmol/L (98-107) 04/29/17 06:08 Carbon Dioxide 30 mmol/L (22-30) 04/29/17 06:08 Anion Gap 16 (10-20) 04/29/17 06:08 BUN 28 mg/dL (7-17) H 04/29/17 06:08 Creatinine 1.0 mg/dL (0.7-1.2) 04/29/17 06:08 Est GFR ( Amer) > 60 04/29/17 06:08 Est GFR (Non-Af Amer) 57 04/29/17 06:08 POC Glucose (mg/dL) 223 mg/dL (65-110) H 05/01/17 16:12 Random Glucose 327 mg/dL (65-105) H 04/29/17 06:08 Calcium 9.5 mg/dl (8.6-10.4) 04/29/17 06:08 Phosphorus 4.0 mg/dL (2.5-4.5) 04/29/17 06:08 Magnesium 2.3 mg/dL (1.6-2.3) 04/29/17 06:08 Total Bilirubin 0.6 mg/dL (0.2-1.3) 04/29/17 06:08 AST 16 U/L (14-36) 04/29/17 06:08 ALT 22 U/L (9-52) 03/04/18 06:08 Alkaline Phosphatase 101 U/L (38-126) 04/29/17 06:08 NT-Pro-B Natriuret Pep 81.9 pg/mL (0-900) 04/26/17 23:30 Total Protein 7.8 g/dL (6.3-8.3) 04/29/17 06:08 Albumin 3.8 g/dL (3.5-5.0) 04/29/17 06:08 Globulin 4.1 gm/dL (2.2-3.9) H 04/29/17 06:08 Albumin/Globulin Ratio 0.9 (1.0-2.1) L 04/29/17 06:08 Arterial Blood Potassium 4.8 mmol/L (3.6-5.2) 04/27/17 08:35 Influenza Typ A,B (EIA) Negative for flu a/b (NEGATIVE) 04/28/17 12:39 Discharge Exam - Head Exam Head Exam: ATRAUMATIC, NORMAL INSPECTION, NORMOCEPHALIC Discharge Plan - Discharge Medications Prescriptions: Amoxicillin/Clavulanate [Augmentin 875 MG-125 MG] 1 tab PO BID #14 tab Lactobacillus Acidophilus [Bacid Acidophilus] 1 cap PO BID #14 cap Methylprednisolone [Medrol Dose Pack (21 tabs)] 4 mg PO DAILY #21 mg - Follow Up Plan Condition: STABLE Disposition: HOME/ ROUTINE Instructions: Heart Failure, Adult (DC), Exacerbation of COPD (DC) Referrals: Ad Khan MD [Staff Provider] -
== END 2017-05-01 18:07 | disposition home or self-care (01) | DRG 882 ==
LOC: C.ER 22:23 → C.9E 04-27 02:54 → C.3T 04-27 03:58 → C.9I 04-27 09:27 → C.3T 04-30 10:57
PROVIDERS: ADMIT Internal Medicine; ATTEND Internal Medicine
PROC: 5A1945Z Respiratory Ventilation, 24-96 Consecutive Hours (ICD-10-PCS; principal; 2017-04-27)
PROC: 02HV33Z Insertion of Infusion Device into Superior Vena Cava, Percutaneous Approach (ICD-10-PCS; 2017-04-27)
DX: J44.1 Chronic obstructive pulmonary disease with (acute) exacerbation (principal); J96.10 Chronic respiratory failure, unspecified whether with hypoxia or hypercapnia; J18.9 Pneumonia, unspecified organism; T17.590A Other foreign object in bronchus causing asphyxiation, initial encounter; Z93.0 Tracheostomy status; I27.24 Chronic thromboembolic pulmonary hypertension; E11.40 Type 2 diabetes mellitus with diabetic neuropathy, unspecified; I11.0 Hypertensive heart disease with heart failure; F25.0 Schizoaffective disorder, bipolar type; J44.0 Chronic obstructive pulmonary disease with (acute) lower respiratory infection; E66.01 Morbid (severe) obesity due to excess calories; F41.9 Anxiety disorder, unspecified; Z68.31 Body mass index [BMI] 31.0-31.9, adult; E78.5 Hyperlipidemia, unspecified; J34.2 Deviated nasal septum; Z88.6 Allergy status to analgesic agent; Z79.4 Long term (current) use of insulin; X58.XXXA Exposure to other specified factors, initial encounter

== ENCOUNTER 2017-06-12 18:08 | Inpatient (IN) | payer OTHER ==
[2017-06-12 18:09] VITALS: BMI 45.6
[2017-06-12] MEDS ORDERED: Albuterol-Ipratrop 3 mg / 0.5 (3 ml) UD INH STA ×2 (18:55→20:50)
--- NOTE | 2017-06-12 19:25 | C.PDOC ---
History Of Present Illness 61 y/o female with history of COPD brought to ED by EMS for evaluation of sob and cough. Patient is non verbal secondary to trach tube. Patient was admitted for COPD exacerbation 04/27-05/[address] Khan service. HPI limited secondary to patient condition. Time Seen by Provider: 06/12/17 18:52 Chief Complaint (Nursing): Shortness Of Breath History Per: EMS History/Exam Limitations: clinical condition Onset/Duration Of Symptoms: Days Current Symptoms Are (Timing): Still Present Initiating Event: Upper Respiratory Illness Past Medical History Reviewed: Historical Data, Nursing Documentation, Vital Signs Vital Signs: Last Vital Signs Temp 99 F 06/12/17 18:22 Pulse 101 H 06/12/17 21:38 Resp 22 06/12/17 21:38 BP 129/72 06/12/17 21:38 Pulse Ox 99 06/12/17 21:38 - Medical History PMH: Anxiety, Asthma, Bipolar Disorder, Bronchitis, CHF, COPD, Depression, Emphysema, HTN, Pneumonia, Seizures, Sleep Apnea Surgical History: Appendectomy, Cholecystectomy - [facility] Procedures ASSISTANCE WITH RESPIRATORY VENTILATION, <24 HRS, CPAP (03/14/16) CENTRAL VENOUS CATHETER PLACEMENT WITH GUIDANCE (10/24/14) CHANGE TRACHEOSTOMY DEVICE IN TRACHEA, EXTERNAL APPROACH (08/25/16) CONTINUOUS INVASIVE MECHANICAL VENTILATION <96 CONSEC HRS (03/07/14) ENTERAL INFUSION OF CONCENTRATED NUT. SUBSTANCES (09/17/12) INSERT ENDOTRACHEAL TUBE (09/17/12) INSERTION OF INFUSION DEV INTO SUP VENA CAVA, PERC APPROACH (04/27/17) INTRODUCE OF OTH THERAP SUBST INTO RESP TRACT, VIA OPENING (05/03/15) NEBULIZER THERAPY (09/17/12) RESPIRATORY VENTILATION, 24-96 CONSECUTIVE HOURS (04/27/17) RESPIRATORY VENTILATION, GREATER THAN 96 CONSECUTIVE HOURS (02/27/17) Family History: States: No Known Family Hx - Social History Hx Tobacco Use: No Hx Alcohol Use: No Hx Substance Use: No - Immunization History Hx Tetanus Toxoid Vaccination: No Hx Influenza Vaccination: No Hx Pneumococcal Vaccination: No Review Of Systems Review Of Systems: ROS cannot be obtained secondary to pt's inabilty to answer questions. Physical Exam - Physical Exam Appears: Other (In Moderate Respiratory distress, Morbidly obese) Skin: Warm, Dry, No Rash Head: Atraumatic, Normacephalic Eye(s): bilateral: Normal Inspection Oral Mucosa: Moist Neck: Normal ROM, Supple Cardiovascular: Rhythm Regular, Other (Patient unable to be evaluated for JVD) Respiratory: No Rales, No Rhonchi, Wheezing (scattered bilateral) Gastrointestinal/Abdominal: Soft, No Tenderness, No Guarding, No Rebound Extremity: Capillary Refill (<2 seconds), No Deformity, Other (+2/4 pitting edema bilaterally) Neurological/Psych: Oriented x3, Normal Cognition ED Course And Treatment - Laboratory Results Result Diagrams: 06/12/17 19:42 06/12/17 19:42 Lab Interpretation: Abnormal (leukocytosis not L-shifted, BNP and trop neg.) ECG: Interpreted By Me ECG Rhythm: Sinus Tachycardia ECG Interpretation: Abnormal Interpretation Of EC Rate From EC O2 Sat by Pulse Oximetry: 100 (RA) Pulse Ox Interpretation: Normal - Radiology CXR: Interpreted by Me CXR Interpretation: Yes: No Acute Disease, Other (+CHF) Reevaluation Time: 20:47 Reassessment Condition: Improved - Physician Consult Information Outcome Of Conversation: 1899, [id number], d/.w nicholas Ellington to admit. Medical Decision Making Medical Decision Making: fluid overloaded with normal BNP, improved with lasix COPD exacerbation with [id number] leukocytosis 17K, no acute pna/UA/wound, probably demarginized from steroids and NOT acute infection- defer abx for now as pt received abx 05/13 and risks outweight benefits at this time. Repeat EKG: Normal sinus rhythm at 98 bpm Disposition Doctor Will See Patient In The: Hospital Counseled Patient/Family Regarding: Studies Performed, Diagnosis - Disposition Disposition: HOSPITALIZED Disposition Time: 20:48 Condition: GOOD - Clinical Impression Clinical Impression: Chronic congestive heart failure, COPD exacerbation - Scribe Statement The provider has reviewed the documentation as recorded by the Tessibwilliams Mckeon All medical record entries made by the Tessibwilliams were at my direction and personally dictated by me. I have reviewed the chart and agree that the record accurately reflects my personal performance of the history, physical exam, medical decision making, and the department course for this patient. I have also personally directed, reviewed, and agree with the discharge instructions and disposition.
[2017-06-12 19:45] LABS: BASO # 0.1 K/uL (0.0-0.2); BASO % 0.5 % (0.0-2.0); EOS # 0.2 K/uL (0.0-0.7); EOS % 0.9 % (0.0-4.0); HEMOGLOBIN 12.9 g/dL (11.0-16.0); LYMPH # 3.9 K/uL (1.0-4.3); LYMPH % 22.7 % (20.0-40.0); MEAN CELL VOLUME 80.4 fL (81.0-99.0); MEAN CORPUSCULAR HEMOGLOBIN 27.1 pg (27.0-31.0); MEAN CORPUSCULAR HGB CONC 33.7 g/dL (33.0-37.0); MEAN PLATELET VOLUME 8.2 fL (7.2-11.7); MONO # 1.2 K/uL (0.0-0.8); MONO % 6.9 % (0.0-10.0); NEUT # 11.9 K/uL (1.8-7.0); RBC 4.77 Mil/uL (3.80-5.20); RED CELL DISTRIBUTION WIDTH 15.6 % (11.5-14.5); WHITE BLOOD COUNT 17.3 K/uL (4.8-10.8)
[2017-06-12 19:58] LABS: ALB/GLOB RATIO 0.8 (1.0-2.1); ALT/SGPT 18 U/L (9-52); AST/SGOT 34 U/L (14-36); BLOOD UREA NITROGEN 15 mg/dL (7-17); CALCIUM 9.6 mg/dl (8.6-10.4); GFR AFRICAN-AMERICAN > 60; GFR NON-AFRICAN AMERICAN > 60
[2017-06-12 20:10] LABS: B-TYPE NATRIURETIC PEPTIDE 121 pg/mL (0-900)
[2017-06-12 20:32] LABS: SQUAMOUS EPITHIAL < 1 /hpf (0-5); URINE BILIRUBIN NEGATIVE (NEGATIVE); URINE BLOOD NEGATIVE (NEGATIVE); URINE CLARITY Clear (Clear); URINE COLOR Straw (YELLOW); URINE GLUCOSE (UA) NORMAL (Normal); URINE LEUKOCYTE ESTERASE NEG Leu/uL (Negative); URINE PROTEIN NEGATIVE (NEGATIVE); URINE UROBILINOGEN NORMAL mg/dL (0.2-1.0)
[2017-06-12] MEDS ORDERED: Albuterol-Ipratrop 3 mg / 0.5 (3 ml) UD ONE (21:01)
--- NOTE | 2017-06-12 23:38 | CP.PCM.HP ---
History of Present Illness - History of Present Illness History of Present Illness: CC: shortness of breath HPI: 61 y/o female with history of COPD brought to ED by EMS for evaluation of sob and cough. Patient is non verbal secondary to trach tube. Patient was admitted for COPD exacerbation 04/27-05/[address] Khan service. HPI limited secondary to patient condition. Past Patient History - Infectious Disease Hx of Infectious Diseases: None - Tetanus Immunizations Tetanus Immunization: Unknown - Past Medical History & Family History Past Medical History?: Yes - Past Social History Smoking Status: Unknown If Ever Smoked - CARDIAC Hx Congestive Heart Failure: Yes Hx Hypertension: Yes - PULMONARY Hx Asthma: Yes Hx Bronchitis: Yes Hx Chronic Obstructive Pulmonary Disease (COPD): Yes Hx Emphysema: Yes Hx Pneumonia: Yes Hx Sleep Apnea: Yes - NEUROLOGICAL Hx Seizures: Yes - HEENT Hx HEENT Problems: Yes Hx Cataracts: Yes - RENAL Hx Chronic Kidney Disease: No - ENDOCRINE/METABOLIC Hx Hypothyroidism: No - HEMATOLOGICAL/ONCOLOGICAL Hx Human Immunodeficiency Virus (HIV): No - INTEGUMENTARY Hx Dermatological Problems: No - MUSCULOSKELETAL/RHEUMATOLOGICAL Hx Arthritis: No Hx Rheumatoid Arthritis: No - GASTROINTESTINAL Hx Gastrointestinal Disorders: Yes Other/Comment: cholecystectomy - GENITOURINARY/GYNECOLOGICAL Hx Sexually Transmitted Disorders: No - PSYCHIATRIC Hx Anxiety: Yes Hx Bipolar Disorder: Yes Hx Depression: Yes Hx Substance Use: No - SURGICAL HISTORY Hx Appendectomy: Yes Hx Cholecystectomy: Yes - ANESTHESIA Hx Anesthesia: Yes Hx Anesthesia Reactions: No Hx Malignant Hyperthermia: No Meds Allergies/Adverse Reactions: Allergies Allergy/AdvReac Type Severity Reaction Status Date / Time aspirin Allergy ANAPHYLAXIS Verified 04/26/17 22:40 ceftriaxone sodium Allergy ANAPHYLAXIS Verified 04/26/17 22:40 [From Rocephin] ibuprofen [From Motrin] Allergy ANAPHYLAXIS Verified 04/26/17 22:40 iodine Allergy ANAPHYLAXIS Verified 04/26/17 22:40 raspberry Allergy ANAPHYLAXIS Verified 04/26/17 22:40 Results - Vital Signs Recent Vital Signs: Last Vital Signs Temp 99 F 06/12/17 18:22 Pulse 100 H 06/12/17 22:48 Resp 22 06/12/17 22:48 BP 122/80 06/12/17 22:48 Pulse Ox 100 06/12/17 22:48 - Labs Result Diagrams: 06/12/17 19:42 06/12/17 19:42 Labs: Laboratory Results - last 24 hr 06/12/17 06/12/17 06/12/17 19:42 19:42 20:26 WBC 17.3 H RBC 4.77 Hgb 12.9 Hct 38.3 MCV 80.4 L MCH 27.1 MCHC 33.7 RDW 15.6 H Plt Count 179 MPV 8.2 Neut % (Auto) 69.0 Lymph % (Auto) 22.7 Mccone % (Auto) 6.9 Eos % (Auto) 0.9 Baso % (Auto) 0.5 Neut # (Auto) 11.9 H Lymph # (Auto) 3.9 Mccone # (Auto) 1.2 H Eos # (Auto) 0.2 Baso # (Auto) 0.1 Sodium 144 Potassium 4.7 Chloride 105 Carbon Dioxide 24 Anion Gap 21 H BUN 15 Creatinine 0.8 Est GFR ( Amer) > 60 Est GFR (Non-Af Amer) > 60 Random Glucose 127 H Calcium 9.6 Total Bilirubin 0.7 AST 34 ALT 18 Alkaline Phosphatase 142 H D Troponin I 0.0190 NT-Pro-B Natriuret Pep 121 Total Protein 8.9 H Albumin 4.0 Globulin 5.0 H Albumin/Globulin Ratio 0.8 L Urine Color Straw Urine Clarity Clear Urine pH 6.0 Ur Specific Dunlo 1.009 Urine Protein Negative Urine Glucose (UA) Normal Urine Ketones Negative Urine Blood Negative Urine Nitrate Negative Urine Bilirubin Negative Urine Urobilinogen Normal Ur Leukocyte Esterase Neg Urine WBC (Auto) < 1 Urine RBC (Auto) 1 Ur Squamous Epith Cells < 1
[2017-06-13] MEDS: QUEtiapine 200 mg XR Tab PO SCH ×2 (00:53→10:53)
[2017-06-13] MEDS: Albuterol-Ipratrop 3 mg / 0.5 (3 ml) UD INH SCH ×4 (01:15→19:09)
[2017-06-13] MEDS: guaiFENesin 200 mg/10 ml Syrup UD PO SCH ×6 (02:23→22:03)
[2017-06-13] MEDS: Oxycodone/Acetaminophen 5/325 mg Tab PO PRN ×3 (03:28→18:13)
[2017-06-13] MEDS: Piperacillin/Tazobact 3.375 GM in Sodium Chloride 100 ML IVPB SCH ×4 (03:36→21:59)
--- NOTE | 2017-06-13 08:03 | RAD ---
HISTORY: SOB COMPARISON: Chest x-ray 04/27/2017 TECHNIQUE: Chest one view . FINDINGS: LUNGS: Mild to moderate pulmonary vascular congestion. Tracheostomy tube in position. PLEURA: No pleural effusion is identified. CARDIOVASCULAR: Heart size is within normal limits.Atherosclerotic calcifications noted of the aorta. OSSEOUS STRUCTURES: Degenerative changes noted of the spine. VISUALIZED UPPER ABDOMEN: Unremarkable. OTHER FINDINGS: None. IMPRESSION: Mild to moderate pulmonary vascular congestion.
[2017-06-13] MEDS: (Novolog) Insulin Aspart, Recombinant 100 u/ml 10 ml vial SC SCH ×4 (08:30→22:00)
[2017-06-13] MEDS ORDERED: Pantoprazole 20 mg EC Tab PO SCH (10:00)
[2017-06-13] MEDS: Enoxaparin 40 mg Syringe SC SCH (10:45)
[2017-06-13] MEDS: Lactobacillus Acidophilus 500 MU Cap PO SCH ×2 (10:50→17:41)
[2017-06-13] MEDS: MethylPREDNISolone 40 mg Vial IVP SCH ×2 (15:15→22:02)
--- NOTE | 2017-06-13 18:29 | CP.PCM.CON ---
History of Present Illness - History of Present Illness History of Present Illness: 60 with hx of copd, prior tracheostomy, frequent admissions with sob, excretion , admitted for same, also with obesity, 05/13 echo at [facility] LV contractility, no , no effusion Review of Systems - Review of Systems Systems not reviewed;Unavailable: Acuity of Condition - Constitutional Constitutional: Anorexia, Weakness - EENT Eyes: absent: Discharge Ears: absent: Ear Discharge, Dizziness Nose/Mouth/Throat: absent: Epistaxis, Nasal Congestion - Cardiovascular Cardiovascular: Dyspnea, Pedal Edema. absent: Acrocyanosis, Chest Pain, Diaphoresis, Palpitations, Syncope - Respiratory Respiratory: Cough, Dyspnea. absent: Hemoptysis - Gastrointestinal Gastrointestinal: absent: Abdominal Pain, Diarrhea, Nausea, Vomiting - Genitourinary Genitourinary: absent: Change in Urinary Stream Past Patient History - Infectious Disease Hx of Infectious Diseases: None - Tetanus Immunizations Tetanus Immunization: Unknown - Past Medical History & Family History Past Medical History?: Yes - Past Social History Smoking Status: Never Smoked - CARDIAC Hx Cardiac Disorders: Yes Hx Congestive Heart Failure: Yes Hx Hypertension: Yes - PULMONARY Hx Chronic Obstructive Pulmonary Disease (COPD): Yes - NEUROLOGICAL Hx Neurological Disorder: Yes Hx Seizures: Yes - HEENT Hx HEENT Problems: Yes Hx Cataracts: Yes - RENAL Hx Chronic Kidney Disease: No - ENDOCRINE/METABOLIC Hx Endocrine Disorders: No - HEMATOLOGICAL/ONCOLOGICAL Hx Blood Disorders: No - INTEGUMENTARY Hx Dermatological Problems: No - MUSCULOSKELETAL/RHEUMATOLOGICAL Hx Musculoskeletal Disorders: No Hx Falls: Yes - GASTROINTESTINAL Hx Gastrointestinal Disorders: Yes Other/Comment: cholecystectomy - GENITOURINARY/GYNECOLOGICAL Hx Genitourinary Disorders: No - PSYCHIATRIC Hx Psychophysiologic Disorder: Yes Hx Anxiety: Yes Hx Bipolar Disorder: Yes Hx Depression: Yes Hx Substance Use: No - SURGICAL HISTORY Hx Surgeries: Yes Hx Appendectomy: Yes Hx Cholecystectomy: Yes Other/Comment: with Trach - ANESTHESIA Hx Anesthesia: Yes Hx Anesthesia Reactions: No Hx Malignant Hyperthermia: No Meds Allergies/Adverse Reactions: Allergies Allergy/AdvReac Type Severity Reaction Status Date / Time aspirin Allergy ANAPHYLAXIS Verified 04/26/17 22:40 ceftriaxone sodium Allergy ANAPHYLAXIS Verified 04/26/17 22:40 [From Rocephin] ibuprofen [From Motrin] Allergy ANAPHYLAXIS Verified 04/26/17 22:40 iodine Allergy ANAPHYLAXIS Verified 04/26/17 22:40 raspberry Allergy ANAPHYLAXIS Verified 04/26/17 22:40 - Medications Medications: Current Medications Albuterol/Ipratropium (Duoneb 3 Mg/0.5 Mg (3 Ml) Ud) 3 ml INH RQ6 [facility] Last Admin: 06/13/17 13:02 Dose: 3 ml Enoxaparin Sodium (Lovenox) 40 mg SC DAILY [facility] Last Admin: 06/13/17 10:45 Dose: 40 mg Gabapentin (Neurontin) 800 mg PO TID [facility] Last Admin: 06/13/17 17:41 Dose: 800 mg Guaifenesin (Robitussin) 200 mg PO Q4H [facility] Last Admin: 06/13/17 17:41 Dose: 200 mg Piperacillin Sod/Tazobactam (Sod 3.375 gm/ Sodium Chloride) 100 mls @ 200 mls/ hr IVPB Q6H [facility] PRN Reason: Protocol Last Admin: 06/13/17 17:42 Dose: 200 mls/hr Insulin Aspart (Novolog) 0 unit SC [facility] PRN Reason: Protocol Last Admin: 06/13/17 17:42 Dose: 2 unit Insulin Glargine (Lantus) 30 unit SC [facility] Lactobacillus Acidophilus (Bacid Acidophilus) 1 cap PO BID [facility] Last Admin: 06/13/17 17:41 Dose: 1 cap Methylprednisolone (Solu-Medrol) 40 mg IVP Q8 [facility] Last Admin: 06/13/17 15:15 Dose: 40 mg Montelukast Sodium (Singulair) 10 mg PO [facility] Last Admin: 06/13/17 00:53 Dose: Not Given Nitroglycerin (Nitrostat Sl Tab) 0.4 mg SL Q5M PRN PRN Reason: Pain, Mild (1-3) Last Admin: 06/12/17 22:51 Dose: 0.4 mg Nystatin (Nystop Topical Powder) 1 applic TOP BID [facility] Last Admin: 06/13/17 17:51 Dose: 1 applic Oxycodone/Acetaminophen (Percocet 5/325 Mg Tab) 1 tab PO Q4H PRN PRN Reason: Pain, moderate (4-7) Stop: 06/15/17 21:50 Last Admin: 06/13/17 18:13 Dose: 1 tab Pantoprazole Sodium (Protonix Inj) 40 mg IVP DAILY [facility] Last Admin: 06/13/17 15:15 Dose: 40 mg Quetiapine Fumarate (Seroquel) 400 mg PO Q12 [facility] Sertraline HCl (Zoloft) 100 mg PO [facility] Last Admin: 06/13/17 00:53 Dose: Not Given Trazodone HCl (Desyrel) 150 mg PO HS [facility] Last Admin: 06/13/17 00:52 Dose: Not Given Physical Exam - Constitutional Appears: Non-toxic - Head Exam Head Exam: ATRAUMATIC - Eye Exam Eye Exam: EOMI - ENT Exam ENT Exam: Mucous Membranes Moist - Neck Exam Neck exam: Negative for: Lymphadenopathy, Thyromegaly Additional comments: trache in place - Respiratory Exam Respiratory Exam: Prolonged Expiratory Phase, Rhonchi, Wheezes - Cardiovascular Exam Cardiovascular Exam: REGULAR RHYTHM, Systolic Murmur - GI/Abdominal Exam GI & Abdominal Exam: Normal Bowel Sounds. absent: Organomegaly - Rectal Exam Rectal Exam: Deferred - Extremities Exam Extremities exam: Positive for: normal capillary refill. Negative for: calf tenderness - Neurological Exam Neurological exam: Alert, Oriented x3 - Psychiatric Exam Psychiatric exam: Normal Mood - Skin Skin Exam: Dry Results - Vital Signs Recent Vital Signs: Last Vital Signs Temp 98.2 F 06/13/17 16:13 Pulse 84 06/13/17 16:13 Resp 20 06/13/17 16:13 BP 129/76 06/13/17 16:13 Pulse Ox 96 06/13/17 16:13 - Labs Result Diagrams: 06/12/17 19:42 06/12/17 19:42 Labs: Laboratory Results - last 24 hr 06/12/17 06/12/17 06/12/17 19:42 19:42 20:26 WBC 17.3 H RBC 4.77 Hgb 12.9 Hct 38.3 MCV 80.4 L MCH 27.1 MCHC 33.7 RDW 15.6 H Plt Count 179 MPV 8.2 Neut % (Auto) 69.0 Lymph % (Auto) 22.7 [place] % (Auto) 6.9 Eos % (Auto) 0.9 Baso % (Auto) 0.5 Neut # (Auto) 11.9 H Lymph # (Auto) 3.9 [place] # (Auto) 1.2 H Eos # (Auto) 0.2 Baso # (Auto) 0.1 Sodium 144 Potassium 4.7 Chloride 105 Carbon Dioxide 24 Anion Gap 21 H BUN 15 Creatinine 0.8 Est GFR ( Amer) > 60 Est GFR (Non-Af Amer) > 60 POC Glucose (mg/dL) Random Glucose 127 H Calcium 9.6 Total Bilirubin 0.7 AST 34 ALT 18 Alkaline Phosphatase 142 H D Troponin I 0.0190 NT-Pro-B Natriuret Pep 121 Total Protein 8.9 H Albumin 4.0 Globulin 5.0 H Albumin/Globulin Ratio 0.8 L Urine Color Straw Urine Clarity Clear Urine pH 6.0 Ur Specific [place] 1.009 Urine Protein Negative Urine Glucose (UA) Normal Urine Ketones Negative Urine Blood Negative Urine Nitrate Negative Urine Bilirubin Negative Urine Urobilinogen Normal Ur Leukocyte Esterase Neg Urine WBC (Auto) < 1 Urine RBC (Auto) 1 Ur Squamous Epith Cells < 1 06/13/17 06/13/17 06/13/17 06:29 11:27 16:35 WBC RBC Hgb Hct MCV MCH MCHC RDW Plt Count MPV Neut % (Auto) Lymph % (Auto) [place] % (Auto) Eos % (Auto) Baso % (Auto) Neut # (Auto) Lymph # (Auto) [place] # (Auto) Eos # (Auto) Baso # (Auto) Sodium Potassium Chloride Carbon Dioxide Anion Gap BUN Creatinine Est GFR ( Amer) Est GFR (Non-Af Amer) POC Glucose (mg/dL) 306 H 204 H 171 H Random Glucose Calcium Total Bilirubin AST ALT Alkaline Phosphatase Troponin I NT-Pro-B Natriuret Pep Total Protein Albumin Globulin Albumin/Globulin Ratio Urine Color Urine Clarity Urine pH Ur Specific [place] Urine Protein Urine Glucose (UA) Urine Ketones Urine Blood Urine Nitrate Urine Bilirubin Urine Urobilinogen Ur Leukocyte Esterase Urine WBC (Auto) Urine RBC (Auto) Ur Squamous Epith Cells Assessment & Plan (1) COPD exacerbation Status: Acute (2) Asthma Status: Chronic (3) Diabetes mellitus with neuropathy Status: Chronic (4) Morbid obesity Status: Chronic
[2017-06-13] MEDS: (Lantus) Insulin Glargine, Recombinant SC SCH (22:00)
--- NOTE | 2017-06-13 22:59 | CP.PCM.PN ---
Subjective - Date & Time of Evaluation Date of Evaluation: 06/13/17 Time of Evaluation: 17:45 - Subjective Subjective: pt seen and examined at bedside Objective - Vital Signs/Intake and Output Vital Signs (last 24 hours): Temp Pulse Resp BP Pulse Ox 98.2 F 84 20 129/76 96 06/13/17 16:13 06/13/17 16:13 06/13/17 16:13 06/13/17 16:13 06/13/17 16:13 Intake and Output: 06/13/17 06/14/17 18:59 06:59 Intake Total 580 Balance 580 - Medications Medications: Current Medications Albuterol/Ipratropium (Duoneb 3 Mg/0.5 Mg (3 Ml) Ud) 3 ml INH RQ6 [facility] Last Admin: 06/13/17 19:09 Dose: 3 ml Enoxaparin Sodium (Lovenox) 40 mg SC DAILY [facility] Last Admin: 06/13/17 10:45 Dose: 40 mg Gabapentin (Neurontin) 800 mg PO TID [facility] Last Admin: 06/13/17 17:41 Dose: 800 mg Guaifenesin (Robitussin) 200 mg PO Q4H [facility] Last Admin: 06/13/17 22:03 Dose: 200 mg Piperacillin Sod/Tazobactam (Sod 3.375 gm/ Sodium Chloride) 100 mls @ 200 mls/ hr IVPB Q6H [facility] PRN Reason: Protocol Last Admin: 06/13/17 21:59 Dose: 200 mls/hr Insulin Aspart (Novolog) 0 unit SC [facility] PRN Reason: Protocol Last Admin: 06/13/17 22:00 Dose: 2 unit Insulin Glargine (Lantus) 30 unit SC HS [facility] Last Admin: 06/13/17 22:00 Dose: 30 units Lactobacillus Acidophilus (Bacid Acidophilus) 1 cap PO BID [facility] Last Admin: 06/13/17 17:41 Dose: 1 cap Methylprednisolone (Solu-Medrol) 40 mg IVP Q8 [facility] Last Admin: 06/13/17 22:02 Dose: 40 mg Montelukast Sodium (Singulair) 10 mg PO HS [facility] Last Admin: 06/13/17 22:02 Dose: 10 mg Nitroglycerin (Nitrostat Sl Tab) 0.4 mg SL Q5M PRN PRN Reason: Pain, Mild (1-3) Last Admin: 06/12/17 22:51 Dose: 0.4 mg Nystatin (Nystop Topical Powder) 1 applic TOP BID [facility] Last Admin: 06/13/17 17:51 Dose: 1 applic Oxycodone/Acetaminophen (Percocet 5/325 Mg Tab) 1 tab PO Q4H PRN PRN Reason: Pain, moderate (4-7) Stop: 06/15/17 21:50 Last Admin: 06/13/17 18:13 Dose: 1 tab Pantoprazole Sodium (Protonix Inj) 40 mg IVP DAILY [facility] Last Admin: 06/13/17 15:15 Dose: 40 mg Quetiapine Fumarate (Seroquel) 400 mg PO Q12 [facility] Last Admin: 06/13/17 22:03 Dose: 400 mg Sertraline HCl (Zoloft) 100 mg PO HS [facility] Last Admin: 06/13/17 22:02 Dose: 100 mg Trazodone HCl (Desyrel) 150 mg PO HS [facility] Last Admin: 06/13/17 22:02 Dose: 150 mg - Labs Labs: 06/12/17 19:42 06/12/17 19:42
[2017-06-14] MEDS: guaiFENesin 200 mg/10 ml Syrup UD PO SCH ×5 (02:05→22:38)
[2017-06-14] MEDS: Albuterol-Ipratrop 3 mg / 0.5 (3 ml) UD INH SCH ×4 (02:06→19:18)
[2017-06-14] MEDS: Oxycodone/Acetaminophen 5/325 mg Tab PO PRN ×2 (03:35→12:28)
[2017-06-14] MEDS: Piperacillin/Tazobact 3.375 GM in Sodium Chloride 100 ML IVPB SCH ×4 (03:36→21:37)
[2017-06-14] MEDS: MethylPREDNISolone 40 mg Vial IVP SCH ×3 (05:54→21:41)
[2017-06-14] MEDS: (Novolog) Insulin Aspart, Recombinant 100 u/ml 10 ml vial SC SCH ×4 (08:10→22:14)
[2017-06-14] MEDS: Enoxaparin 40 mg Syringe SC SCH (09:30)
[2017-06-14] MEDS: Lactobacillus Acidophilus 500 MU Cap PO SCH ×2 (09:31→17:40)
--- NOTE | 2017-06-14 16:54 | CP.PCM.PN ---
Subjective - Date & Time of Evaluation Date of Evaluation: 06/14/17 Time of Evaluation: 14:00 - Subjective Subjective: improved clinically, less sob, with cough Objective - Vital Signs/Intake and Output Vital Signs (last 24 hours): Temp Pulse Resp BP Pulse Ox 97.9 F 69 20 125/71 96 06/14/17 15:00 06/14/17 16:00 06/14/17 15:00 06/14/17 15:00 06/14/17 15:00 Intake and Output: 06/14/17 06/14/17 06:59 18:59 Intake Total 500 Output Total 700 600 Balance -700 -100 - Medications Medications: Current Medications Albuterol/Ipratropium (Duoneb 3 Mg/0.5 Mg (3 Ml) Ud) 3 ml INH RQ6 [facility] Last Admin: 06/14/17 13:22 Dose: 3 ml Enoxaparin Sodium (Lovenox) 40 mg SC DAILY [facility] Last Admin: 06/14/17 09:30 Dose: 40 mg Gabapentin (Neurontin) 800 mg PO TID [facility] Last Admin: 06/14/17 13:29 Dose: 800 mg Guaifenesin (Robitussin) 200 mg PO Q4H [facility] Last Admin: 06/14/17 09:29 Dose: 200 mg Piperacillin Sod/Tazobactam (Sod 3.375 gm/ Sodium Chloride) 100 mls @ 200 mls/ hr IVPB Q6H [facility] PRN Reason: Protocol Last Admin: 06/14/17 09:30 Dose: 200 mls/hr Insulin Aspart (Novolog) 0 unit SC ACHS [facility] PRN Reason: Protocol Last Admin: 06/14/17 12:26 Dose: 6 unit Insulin Glargine (Lantus) 30 unit SC HS [facility] Last Admin: 06/13/17 22:00 Dose: 30 units Lactobacillus Acidophilus (Bacid Acidophilus) 1 cap PO BID [facility] Last Admin: 06/14/17 09:31 Dose: 1 cap Methylprednisolone (Solu-Medrol) 40 mg IVP Q8 [facility] Last Admin: 06/14/17 13:30 Dose: 40 mg Montelukast Sodium (Singulair) 10 mg PO HS [facility] Last Admin: 06/13/17 22:02 Dose: 10 mg Nitroglycerin (Nitrostat Sl Tab) 0.4 mg SL Q5M PRN PRN Reason: Pain, Mild (1-3) Last Admin: 06/12/17 22:51 Dose: 0.4 mg Nystatin (Nystop Topical Powder) 1 applic TOP BID [facility] Last Admin: 06/14/17 09:29 Dose: 1 applic Oxycodone/Acetaminophen (Percocet 5/325 Mg Tab) 1 tab PO Q4H PRN PRN Reason: Pain, moderate (4-7) Stop: 06/15/17 21:50 Last Admin: 06/14/17 12:28 Dose: 1 tab Pantoprazole Sodium (Protonix Inj) 40 mg IVP DAILY [facility] Last Admin: 06/14/17 09:29 Dose: 40 mg Quetiapine Fumarate (Seroquel) 400 mg PO Q12 [facility] Last Admin: 06/14/17 09:32 Dose: 400 mg Sertraline HCl (Zoloft) 100 mg PO HS [facility] Last Admin: 06/13/17 22:02 Dose: 100 mg Trazodone HCl (Desyrel) 150 mg PO [facility] Last Admin: 06/13/17 22:02 Dose: 150 mg - Labs Labs: 06/12/17 19:42 06/12/17 19:42 - Constitutional Appears: Non-toxic - Head Exam Head Exam: ATRAUMATIC - Eye Exam Eye Exam: EOMI - ENT Exam ENT Exam: Mucous Membranes Moist - Neck Exam Neck Exam: absent: Lymphadenopathy, Thyromegaly - Respiratory Exam Respiratory Exam: Clear to Ausculation Bilateral, Rhonchi, Wheezes - Cardiovascular Exam Cardiovascular Exam: REGULAR RHYTHM, Murmur - GI/Abdominal Exam GI & Abdominal Exam: Soft, Normal Bowel Sounds. absent: Organomegaly - Rectal Exam Rectal Exam: Deferred - Extremities Exam Extremities Exam: Normal Capillary Refill. 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
--- NOTE | 2017-06-14 17:04 | CP.PCM.CON ---
History of Present Illness - History of Present Illness History of Present Illness: Reason for consult: COPD, tracheostomy decannulation 61 F with PMHx of COPD, CHF, Sleep apnea, HTN and tracheostomy presented to the ED by EMS for shortness of breath, chest pain and cough. 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 Today, patient was seen and reported shortness of breath and coughing. She notes that the tracheostomy is difficult to deal with and agrees to have it decannulated during this hospitalization. Family present, also agreed that decannulation would be beneficial. PMHx: Asthma, CHF, Sleep Apnea, HTN, seizures PSH: appendectomy, cholecystectomy, tracheostomy Allergies: aspirin, ceftriaxone, ibuprofen, iodine, raspberries SH: denies tobacco, alcohol, illicit drug use Assessment and Plan: 1. COPD Exacerbation - CXR 06/12: mild to moderate pulmonary vascular congestion, no pleural effusion - Saturating 95-97% on trach collar - CBC 06/12: WBC 17.3 without left shift, likely due to steroids - duonebs nebulizer treatments - solu-medrol q8h - singulair - robitussin - IV antibiotics - Decannulate before discharge 2. CHF exacerbation - diuresis with lasix - Dr. Matta onboard Past Patient History - Infectious Disease Hx of Infectious Diseases: None - Tetanus Immunizations Tetanus Immunization: Unknown - Past Medical History & Family History Past Medical History?: Yes - Past Social History Smoking Status: Never Smoked - CARDIAC Hx Cardiac Disorders: Yes Hx Congestive Heart Failure: Yes Hx Hypertension: Yes - PULMONARY Hx Chronic Obstructive Pulmonary Disease (COPD): Yes - NEUROLOGICAL Hx Neurological Disorder: Yes Hx Seizures: Yes - HEENT Hx HEENT Problems: Yes Hx Cataracts: Yes - RENAL Hx Chronic Kidney Disease: No - ENDOCRINE/METABOLIC Hx Endocrine Disorders: No - HEMATOLOGICAL/ONCOLOGICAL Hx Blood Disorders: No - INTEGUMENTARY Hx Dermatological Problems: No - MUSCULOSKELETAL/RHEUMATOLOGICAL Hx Musculoskeletal Disorders: No Hx Falls: Yes - GASTROINTESTINAL Hx Gastrointestinal Disorders: Yes Other/Comment: cholecystectomy - GENITOURINARY/GYNECOLOGICAL Hx Genitourinary Disorders: No - PSYCHIATRIC Hx Psychophysiologic Disorder: Yes Hx Anxiety: Yes Hx Bipolar Disorder: Yes Hx Depression: Yes Hx Substance Use: No - SURGICAL HISTORY Hx Surgeries: Yes Hx Appendectomy: Yes Hx Cholecystectomy: Yes Other/Comment: with Trach - ANESTHESIA Hx Anesthesia: Yes Hx Anesthesia Reactions: No Hx Malignant Hyperthermia: No Meds Allergies/Adverse Reactions: Allergies Allergy/AdvReac Type Severity Reaction Status Date / Time aspirin Allergy ANAPHYLAXIS Verified 04/26/17 22:40 ceftriaxone sodium Allergy ANAPHYLAXIS Verified 04/26/17 22:40 [From Rocephin] ibuprofen [From Motrin] Allergy ANAPHYLAXIS Verified 04/26/17 22:40 iodine Allergy ANAPHYLAXIS Verified 04/26/17 22:40 raspberry Allergy ANAPHYLAXIS Verified 04/26/17 22:40 - Medications Medications: Current Medications Albuterol/Ipratropium (Duoneb 3 Mg/0.5 Mg (3 Ml) Ud) 3 ml INH RQ6 [facility] Last Admin: 06/14/17 13:22 Dose: 3 ml Enoxaparin Sodium (Lovenox) 40 mg SC DAILY [facility] Last Admin: 06/14/17 09:30 Dose: 40 mg Gabapentin (Neurontin) 800 mg PO TID [facility] Last Admin: 06/14/17 13:29 Dose: 800 mg Guaifenesin (Robitussin) 200 mg PO Q4H [facility] Last Admin: 06/14/17 09:29 Dose: 200 mg Piperacillin Sod/Tazobactam (Sod 3.375 gm/ Sodium Chloride) 100 mls @ 200 mls/ hr IVPB Q6H [facility] PRN Reason: Protocol Last Admin: 06/14/17 09:30 Dose: 200 mls/hr Insulin Aspart (Novolog) 0 unit SC ACHS [facility] PRN Reason: Protocol Last Admin: 06/14/17 12:26 Dose: 6 unit Insulin Glargine (Lantus) 30 unit SC [facility] Last Admin: 06/13/17 22:00 Dose: 30 units Lactobacillus Acidophilus (Bacid Acidophilus) 1 cap PO BID [facility] Last Admin: 06/14/17 09:31 Dose: 1 cap Methylprednisolone (Solu-Medrol) 40 mg IVP Q8 [facility] Last Admin: 06/14/17 13:30 Dose: 40 mg Montelukast Sodium (Singulair) 10 mg PO HS [facility] Last Admin: 06/13/17 22:02 Dose: 10 mg Nitroglycerin (Nitrostat Sl Tab) 0.4 mg SL Q5M PRN PRN Reason: Pain, Mild (1-3) Last Admin: 06/12/17 22:51 Dose: 0.4 mg Nystatin (Nystop Topical Powder) 1 applic TOP BID [facility] Last Admin: 06/14/17 09:29 Dose: 1 applic Oxycodone/Acetaminophen (Percocet 5/325 Mg Tab) 1 tab PO Q4H PRN PRN Reason: Pain, moderate (4-7) Stop: 06/15/17 21:50 Last Admin: 06/14/17 12:28 Dose: 1 tab Pantoprazole Sodium (Protonix Inj) 40 mg IVP DAILY [facility] Last Admin: 06/14/17 09:29 Dose: 40 mg Quetiapine Fumarate (Seroquel) 400 mg PO Q12 [facility] Last Admin: 06/14/17 09:32 Dose: 400 mg Sertraline HCl (Zoloft) 100 mg PO HS [facility] Last Admin: 06/13/17 22:02 Dose: 100 mg Trazodone HCl (Desyrel) 150 mg PO [facility] Last Admin: 06/13/17 22:02 Dose: 150 mg Results - Vital Signs Recent Vital Signs: Last Vital Signs Temp 97.9 F 06/14/17 15:00 Pulse 69 06/14/17 16:00 Resp 20 06/14/17 15:00 BP 125/71 06/14/17 15:00 Pulse Ox 96 06/14/17 15:00 - Labs Result Diagrams: 06/12/17 19:42 06/12/17 19:42 Labs: Laboratory Results - last 24 hr 06/13/17 06/14/17 06/14/17 21:38 02:42 06:22 POC Glucose (mg/dL) 334 H 375 H 265 H 06/14/17 06/14/17 11:06 16:35 POC Glucose (mg/dL) 325 H 283 H
[2017-06-14] MEDS: (Lantus) Insulin Glargine, Recombinant SC SCH (21:38)
--- NOTE | 2017-06-14 23:28 | CP.PCM.PN ---
Objective - Vital Signs/Intake and Output Vital Signs (last 24 hours): Temp Pulse Resp BP Pulse Ox 97.9 F 69 20 125/71 96 06/14/17 15:00 06/14/17 16:00 06/14/17 15:00 06/14/17 15:00 06/14/17 15:00 Intake and Output: 06/14/17 06/15/17 18:59 06:59 Intake Total 500 Output Total 600 Balance -100 - Medications Medications: Current Medications Albuterol/Ipratropium (Duoneb 3 Mg/0.5 Mg (3 Ml) Ud) 3 ml INH RQ6 [facility] Last Admin: 06/14/17 19:18 Dose: 3 ml Enoxaparin Sodium (Lovenox) 40 mg SC DAILY [facility] Last Admin: 06/14/17 09:30 Dose: 40 mg Gabapentin (Neurontin) 800 mg PO TID [facility] Last Admin: 06/14/17 17:40 Dose: 800 mg Guaifenesin (Robitussin) 200 mg PO Q4H [facility] Last Admin: 06/14/17 22:38 Dose: 200 mg Piperacillin Sod/Tazobactam (Sod 3.375 gm/ Sodium Chloride) 100 mls @ 200 mls/ hr IVPB Q6H [facility] PRN Reason: Protocol Last Admin: 06/14/17 21:37 Dose: 200 mls/hr Insulin Aspart (Novolog) 0 unit SC ACHS [facility] PRN Reason: Protocol Last Admin: 06/14/17 22:14 Dose: Not Given Insulin Glargine (Lantus) 30 unit SC [facility] Last Admin: 06/14/17 21:38 Dose: 30 units Lactobacillus Acidophilus (Bacid Acidophilus) 1 cap PO BID [facility] Last Admin: 06/14/17 17:40 Dose: 1 cap Lamotrigine (Lamictal) 100 mg PO Q12H [facility] Last Admin: 06/14/17 19:42 Dose: 100 mg Lorazepam (Ativan) 2 mg PO BID PRN PRN Reason: Anxiety Last Admin: 06/14/17 22:38 Dose: 2 mg Methylprednisolone (Solu-Medrol) 40 mg IVP Q8 [facility] Last Admin: 06/14/17 21:41 Dose: 40 mg Montelukast Sodium (Singulair) 10 mg PO HS [facility] Last Admin: 06/14/17 21:41 Dose: 10 mg Nitroglycerin (Nitrostat Sl Tab) 0.4 mg SL Q5M PRN PRN Reason: Pain, Mild (1-3) Last Admin: 06/12/17 22:51 Dose: 0.4 mg Nystatin (Nystop Topical Powder) 1 applic TOP BID [facility] Last Admin: 06/14/17 17:40 Dose: 1 applic Oxycodone/Acetaminophen (Percocet 5/325 Mg Tab) 1 tab PO Q4H PRN PRN Reason: Pain, moderate (4-7) Stop: 06/15/17 21:50 Last Admin: 06/14/17 12:28 Dose: 1 tab Pantoprazole Sodium (Protonix Inj) 40 mg IVP DAILY [facility] Last Admin: 06/14/17 09:29 Dose: 40 mg Quetiapine Fumarate (Seroquel) 400 mg PO Q12 [facility] Last Admin: 06/14/17 22:39 Dose: 400 mg Sertraline HCl (Zoloft) 100 mg PO Q12H [facility] Last Admin: 06/14/17 21:42 Dose: 100 mg Trazodone HCl (Desyrel) 150 mg PO HS [facility] Last Admin: 06/14/17 21:42 Dose: 150 mg - Labs Labs: 06/12/17 19:42 06/12/17 19:42
[2017-06-15] MEDS: Albuterol-Ipratrop 3 mg / 0.5 (3 ml) UD INH SCH ×4 (01:53→19:24)
[2017-06-15] MEDS: guaiFENesin 200 mg/10 ml Syrup UD PO SCH ×6 (02:00→22:18)
--- NOTE | 2017-06-15 03:40 | CON ---
DATE: 06/14/2017. CHIEF COMPLAINT AND REASON FOR CONSULTATION: The patient is referred by Dr. Khan for evaluation and comanagement. The patient is a well known to the doctor, having treated her numerous times, many years. She has history of schizoaffective disorder, bipolar type. HISTORY OF PRESENT ILLNESS: This is a case of a 61-year-old female who lives with daughter Toshia with history of COPD, respiratory failure, status post trach. The patient was brought in complaining increasing shortness of breath and cough. The patient is admitted with exacerbation of COPD. The patient is referred for comanagement as the patient is taking multiple psych meds for her psych issues. She was here last month. The patient is taking the following meds at home; Ativan 2 mg b.i.d., the patient is on trazodone 150 mg at bedtime, the patient is on Seroquel 400 mg every 12 hours, Lamictal 100 mg every 12 hours and Zoloft 100 mg every 12 hours. She has been taking these medication, this combination seems to help her, has been compliant with her meds. She is complaining of anxiety when admitted to hospital, and the patient has chronic history of having auditory hallucinations as well as paranoia as well as chronic insomnia. The patient stated that she is feeling anxious and wants her medication. PAST PSYCH HISTORY: Long history of schizoaffective disorder, bipolar type, has been admitted in the past, history suicidal attempts in the past. MEDICAL HISTORY: History of sleep apnea, status post respiratory failure, status post trach, history of COPD, CHF, obesity, hypertension, pneumonia. DRUG ALCOHOL HISTORY: Denies any. ALLERGIES: ALLERGIC TO ASPIRIN, CEFTRIAXONE, MOTRIN, IODINE, RASPBERRY. PSYCHOSOCIAL HISTORY: The patient has 3 daughters. She lives with one of them. She has been disabled due to her psych illness. CURRENT MEDICATIONS: Include trazodone 150 mg at bedtime, DuoNeb, Lantus, Neurontin 800 mg 3 times a day. She is also on Zoloft 100 mg daily, Solu Medrol, Seroquel 400 mg twice a day, Protonix, Percocet, Lovenox. PHYSICAL EXAMINATION: VITAL SIGNS: Temperature is 97.9, pulse 69, blood pressure 125/71, respirations 20, oxygen saturation is 96% trach collar. REVIEW OF SYSTEMS: GENERAL: The patient is in room, speaks in whisper due to trach collar, the patient feels anxious and wants her Ativan. We discussed with the patient, and we put her back on her old regimen. SKIN: No diaphoresis. HEENT: No headache or dizziness. NECK: The patient is status post trach placement. RESPIRATORY: Not in acute respiratory distress. CARDIOVASCULAR: No chest pain. GASTROINTESTINAL: Has good appetite. EXTREMITIES: Moving extremities. MUSCULOSKELETAL: Feels weak. NEURO: Alert and oriented x3. GENITOURINARY: No dysuria. MENTAL STATUS EXAMINATION: An obese female who looks stated age, speaks in whispers about 282 pounds weight and about 5 feet 8 inches. Mood is anxious and somatic. Affect is reactive. Speech spontaneous. Thought process coherent. Thought content, no paranoia. No hallucinations. No suicidal or homicidal ideation. Attention and memory seems to be fair. Insight and judgement fair. Impulse control is fair. IMPRESSION: History of schizoaffective disorder, bipolar type, as well as history of exacerbation of chronic obstructive pulmonary disease, history of hypertension, diabetes, pneumonia, chronic heart failure, status post respiratory failure, history of chronic congestive heart failure. PLAN AND RECOMMENDATIONS: The patient seen, meds reviewed. Continue present management. We will readjust her meds. Put her on Ativan 2 mg p.o. b.i.d. for anxiety. Continue trazodone 150 mg at bedtime for depression; Lamictal 100 mg every 12 hours for mood stabilization as well as gabapentin 800 mg p.o. t.i.d. for pain as well as for mood stabilization; quetiapine to continue 400 mg every 12 hours; Zoloft 100 mg every 12 hours. We will follow up the patient accordingly. Continue treatment plan as outlined. Thank you for the consult. Wellington Dejesus MD
[2017-06-15] MEDS: Oxycodone/Acetaminophen 5/325 mg Tab PO PRN ×3 (04:19→22:17)
[2017-06-15] MEDS: Piperacillin/Tazobact 3.375 GM in Sodium Chloride 100 ML IVPB SCH ×5 (04:22→22:12)
[2017-06-15] MEDS: MethylPREDNISolone 40 mg Vial IVP SCH ×3 (05:40→22:14)
[2017-06-15] MEDS: (Novolog) Insulin Aspart, Recombinant 100 u/ml 10 ml vial SC SCH ×4 (08:13→22:13)
[2017-06-15] MEDS: Enoxaparin 40 mg Syringe SC SCH (09:39)
[2017-06-15] MEDS: Lactobacillus Acidophilus 500 MU Cap PO SCH ×2 (09:52→18:23)
[2017-06-15 12:25] LABS: BASO % 0.1 % (0.0-2.0); HEMOGLOBIN 12.5 g/dL (11.0-16.0); LYMPH # 0.8 K/uL (1.0-4.3); LYMPH % 5.8 % (20.0-40.0); MEAN CELL VOLUME 80.9 fL (81.0-99.0); MEAN CORPUSCULAR HEMOGLOBIN 27.3 pg (27.0-31.0); MEAN CORPUSCULAR HGB CONC 33.7 g/dL (33.0-37.0); MEAN PLATELET VOLUME 8.7 fL (7.2-11.7); MONO # 0.4 K/uL (0.0-0.8); MONO % 2.9 % (0.0-10.0); NEUT # 13.2 K/uL (1.8-7.0); NEUT % 91.2 % (50.0-75.0); NRBC % 0.1 % (0.0-2.0); PLATELET COUNT 173 K/uL (130-400); RED CELL DISTRIBUTION WIDTH 15.4 % (11.5-14.5); WHITE BLOOD COUNT 14.5 K/uL (4.8-10.8)
--- NOTE | 2017-06-15 12:29 | CP.PCM.PN ---
Subjective - Date & Time of Evaluation Date of Evaluation: 06/15/17 Time of Evaluation: 12:00 - Subjective Subjective: Seen by pulmonary, tracheostomy management in addition to treatment of chronic bronchitis, normal left ventricular contractility on echo Objective - Vital Signs/Intake and Output Vital Signs (last 24 hours): Temp Pulse Resp BP Pulse Ox 97.4 F L 74 20 154/88 H 98 06/15/17 07:57 06/15/17 07:57 06/15/17 07:57 06/15/17 07:57 06/15/17 07:57 Intake and Output: 06/15/17 06/15/17 06:59 18:59 Intake Total 930 Output Total 2100 Balance -1170 - Medications Medications: Current Medications Albuterol/Ipratropium (Duoneb 3 Mg/0.5 Mg (3 Ml) Ud) 3 ml INH RQ6 [facility] Last Admin: 06/15/17 07:25 Dose: 3 ml Enoxaparin Sodium (Lovenox) 40 mg SC DAILY [facility] Last Admin: 06/15/17 09:39 Dose: 40 mg Gabapentin (Neurontin) 800 mg PO TID [facility] Last Admin: 06/15/17 09:53 Dose: 800 mg Guaifenesin (Robitussin) 200 mg PO Q4H [facility] Last Admin: 06/15/17 11:00 Dose: 200 mg Piperacillin Sod/Tazobactam (Sod 3.375 gm/ Sodium Chloride) 100 mls @ 200 mls/ hr IVPB Q6H [facility] PRN Reason: Protocol Last Admin: 06/15/17 09:46 Dose: 200 mls/hr Insulin Aspart (Novolog) 0 unit SC ACHS [facility] PRN Reason: Protocol Last Admin: 06/15/17 12:00 Dose: 6 unit Insulin Glargine (Lantus) 30 unit SC HS [facility] Last Admin: 06/14/17 21:38 Dose: 30 units Lactobacillus Acidophilus (Bacid Acidophilus) 1 cap PO BID [facility] Last Admin: 06/15/17 09:52 Dose: 1 cap Lamotrigine (Lamictal) 100 mg PO Q12H [facility] Last Admin: 06/15/17 06:24 Dose: 100 mg Lorazepam (Ativan) 2 mg PO BID PRN PRN Reason: Anxiety Last Admin: 06/15/17 11:47 Dose: 2 mg Methylprednisolone (Solu-Medrol) 40 mg IVP Q8 [facility] Last Admin: 06/15/17 05:40 Dose: 40 mg Montelukast Sodium (Singulair) 10 mg PO [facility] Last Admin: 06/14/17 21:41 Dose: 10 mg Nitroglycerin (Nitrostat Sl Tab) 0.4 mg SL Q5M PRN PRN Reason: Pain, Mild (1-3) Last Admin: 06/12/17 22:51 Dose: 0.4 mg Nystatin (Nystop Topical Powder) 1 applic TOP BID [facility] Last Admin: 06/15/17 09:53 Dose: 1 applic Oxycodone/Acetaminophen (Percocet 5/325 Mg Tab) 1 tab PO Q4H PRN PRN Reason: Pain, moderate (4-7) Stop: 06/15/17 21:50 Last Admin: 06/15/17 12:18 Dose: 1 tab Pantoprazole Sodium (Protonix Inj) 40 mg IVP DAILY [facility] Last Admin: 06/15/17 09:40 Dose: 40 mg Quetiapine Fumarate (Seroquel) 400 mg PO Q12 [facility] Last Admin: 06/15/17 09:52 Dose: 400 mg Sertraline HCl (Zoloft) 100 mg PO Q12H [facility] Last Admin: 06/15/17 07:05 Dose: 100 mg Trazodone HCl (Desyrel) 150 mg PO [facility] Last Admin: 06/14/17 21:42 Dose: 150 mg - Labs Labs: 06/15/17 12:11 06/12/17 19:42 - Constitutional Appears: Non-toxic - Head Exam Head Exam: ATRAUMATIC - Eye Exam Eye Exam: EOMI - ENT Exam ENT Exam: Mucous Membranes Moist - Neck Exam Neck Exam: absent: Lymphadenopathy, Thyromegaly - Respiratory Exam Respiratory Exam: Rhonchi. absent: Rales - Cardiovascular Exam Cardiovascular Exam: REGULAR RHYTHM, Murmur - GI/Abdominal Exam GI & Abdominal Exam: Normal Bowel Sounds. absent: Organomegaly - Rectal Exam Rectal Exam: Deferred - Extremities Exam Extremities Exam: Normal Capillary Refill. 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
[2017-06-15 12:33] LABS: BLOOD UREA NITROGEN 26 mg/dL (7-17); CALCIUM 9.2 mg/dl (8.6-10.4); GFR AFRICAN-AMERICAN > 60; GFR NON-AFRICAN AMERICAN 51
--- NOTE | 2017-06-15 12:42 | CP.PCM.PN ---
Subjective - Date & Time of Evaluation Date of Evaluation: 06/15/17 Time of Evaluation: 08:20 - Subjective Subjective: Patient seen and examined at bedside. She reports that her shortness of breath and coughing have improved slightly. Patient's tracheostomy is set to be decannulated today. Assessment and Plan: 1. COPD Exacerbation - CXR 06/12: mild to moderate pulmonary vascular congestion, no pleural effusion - duonebs - solu-medrol q8h - singulair - robitussin - IV antibiotics - patient tolerating the trach capping Objective - Vital Signs/Intake and Output Vital Signs (last 24 hours): Temp Pulse Resp BP Pulse Ox 97.4 F L 74 20 154/88 H 98 06/15/17 07:57 06/15/17 07:57 06/15/17 07:57 06/15/17 07:57 06/15/17 07:57 Intake and Output: 06/15/17 06/15/17 06:59 18:59 Intake Total 930 Output Total 2100 Balance -1170 - Medications Medications: Current Medications Albuterol/Ipratropium (Duoneb 3 Mg/0.5 Mg (3 Ml) Ud) 3 ml INH RQ6 [facility] Last Admin: 06/15/17 07:25 Dose: 3 ml Enoxaparin Sodium (Lovenox) 40 mg SC DAILY [facility] Last Admin: 06/15/17 09:39 Dose: 40 mg Gabapentin (Neurontin) 800 mg PO TID [facility] Last Admin: 06/15/17 09:53 Dose: 800 mg Guaifenesin (Robitussin) 200 mg PO Q4H [facility] Last Admin: 06/15/17 11:00 Dose: 200 mg Piperacillin Sod/Tazobactam (Sod 3.375 gm/ Sodium Chloride) 100 mls @ 200 mls/ hr IVPB Q6H [facility] PRN Reason: Protocol Last Admin: 06/15/17 09:46 Dose: 200 mls/hr Insulin Aspart (Novolog) 0 unit SC ACHS [facility] PRN Reason: Protocol Last Admin: 06/15/17 12:00 Dose: 6 unit Insulin Glargine (Lantus) 30 unit SC HS [facility] Last Admin: 06/14/17 21:38 Dose: 30 units Lactobacillus Acidophilus (Bacid Acidophilus) 1 cap PO BID [facility] Last Admin: 06/15/17 09:52 Dose: 1 cap Lamotrigine (Lamictal) 100 mg PO Q12H [facility] Last Admin: 06/15/17 06:24 Dose: 100 mg Lorazepam (Ativan) 2 mg PO BID PRN PRN Reason: Anxiety Last Admin: 06/15/17 11:47 Dose: 2 mg Methylprednisolone (Solu-Medrol) 40 mg IVP Q8 [facility] Last Admin: 06/15/17 05:40 Dose: 40 mg Montelukast Sodium (Singulair) 10 mg PO HS [facility] Last Admin: 06/14/17 21:41 Dose: 10 mg Nitroglycerin (Nitrostat Sl Tab) 0.4 mg SL Q5M PRN PRN Reason: Pain, Mild (1-3) Last Admin: 06/12/17 22:51 Dose: 0.4 mg Nystatin (Nystop Topical Powder) 1 applic TOP BID [facility] Last Admin: 06/15/17 09:53 Dose: 1 applic Oxycodone/Acetaminophen (Percocet 5/325 Mg Tab) 1 tab PO Q4H PRN PRN Reason: Pain, moderate (4-7) Stop: 06/15/17 21:50 Last Admin: 06/15/17 12:18 Dose: 1 tab Pantoprazole Sodium (Protonix Inj) 40 mg IVP DAILY [facility] Last Admin: 06/15/17 09:40 Dose: 40 mg Quetiapine Fumarate (Seroquel) 400 mg PO Q12 [facility] Last Admin: 06/15/17 09:52 Dose: 400 mg Sertraline HCl (Zoloft) 100 mg PO Q12H [facility] Last Admin: 06/15/17 07:05 Dose: 100 mg Trazodone HCl (Desyrel) 150 mg PO [facility] Last Admin: 06/14/17 21:42 Dose: 150 mg - Labs Labs: 06/15/17 12:11 06/15/17 12:11
[2017-06-15 13:22] LABS: BANDS 1 % (0-2); LYMPHOCYTE 7 % (20-40); MONOCYTE 3 % (0-10); MYELOCYTE 1 % (0-0); NEUTROPHIL 88 % (50-75); PLATELET ESTIMATE NORMAL (NORMAL); TOTAL CELLS COUNTED 100
--- NOTE | 2017-06-15 19:59 | PN ---
DATE: SUBJECTIVE: The patient is seen. The patient is doing much better with resumption of all her psych medications. She is still short of breath. The patient was seen with case assistant. She said she does not want go for subacute rehab. She states she missed the birthday of her granddaughter who is 5 years old because of her medical problem, and the patient does not want to go for subacute rehab because she wants to spend more time with her granddaughter. The patient lives with one of her daughter Toshia who is very busy and working 16 hours a day. The patient also wants live with in homecare services at home but does not want usp placement and she does not want to go for subacute rehab after this hospitalization. MEDICATIONS: The patient is taken to following meds: Ativan 2 mg p.o. b.i.d. psych de la cruz; calcitonin 150 mg at bedtime, Lamictal 100 mg every 12, Neurontin 800 mg three times a day. The patient is on Seroquel 400 mg every 12. The patient is on sertraline 100 mg every 12 hours. VITAL SIGNS: Temperature is 97.4, pulse 74, blood pressure 154/88, respirations 20, oxygen saturation is 98%. REVIEW OF SYSTEMS: CONSTITUTIONAL: The patient is alert, verbal. Still complaining of shortness of breath. The patient has a trach, but cooperative. She is trying to speak in Ukrainian when seen with the protective services case worker. The patient is expressing intention not to go for subacute rehab. SKIN: No diaphoresis. HEENT: No headache or dizziness. NECK: Straight. The patient has a trach collar. RESPIRATORY: [id number] dyspnea. CARDIOVASCULAR: No chest pain. GASTROINTESTINAL: Eating very well. EXTREMITIES: The patient is moving extremities. MUSCULOSKELETAL: Feels weak. NEURO: Alert and oriented x3. GENITOURINARY: No dysuria. MENTAL STATUS EXAMINATION: An obese female who looks stated age, still anxious, depressed. The patient speaks in whispers at times because she has a trach. Affect is reactive. Mood is anxious. Thought process, coherent. Thought content, the patient states that she does not want to go for subacute rehab after this hospitalization. No psychosis. No suicidal or homicidal ideation. She states that she is less anxious. The patient also was given Ativan today p.r.n. No paranoia. No hallucinations. No suicidal or homicidal ideation. She states that she is sleeping better. The patient also was eating her food when seen. Attention and memory seem to be fair. Insight and judgement fair. Impulse control is fair. IMPRESSION: History of schizoaffective disorder, bipolar type, as well as history of exacerbation of chronic obstructive pulmonary disease. She is status post tracheostomy placement. History of diabetes, hypertension. History of obesity, pneumonia. PLAN AND RECOMMENDATION: The patient was seen. Meds reviewed. Continue present psych meds as ordered. Continue treatment plan as outlined. The patient states that she wants to go home after this current hospitalization. The patient does not want to go for subacute rehab. Wellington Dejesus MD
[2017-06-15] MEDS: (Lantus) Insulin Glargine, Recombinant SC SCH (22:14)
--- NOTE | 2017-06-15 23:27 | CP.PCM.PN ---
Subjective - Date & Time of Evaluation Date of Evaluation: 06/15/17 Time of Evaluation: 18:35 - Subjective Subjective: pt seen and examined at bedside Objective - Vital Signs/Intake and Output Vital Signs (last 24 hours): Temp Pulse Resp BP Pulse Ox 97.5 F L 82 20 152/83 H 98 06/15/17 15:49 06/15/17 16:00 06/15/17 15:49 06/15/17 15:49 06/15/17 15:49 Intake and Output: 06/15/17 06/16/17 18:59 06:59 Output Total 650 1600 Balance -650 -1600 - Medications Medications: Current Medications Albuterol/Ipratropium (Duoneb 3 Mg/0.5 Mg (3 Ml) Ud) 3 ml INH RQ6 [facility] Last Admin: 06/15/17 19:24 Dose: 3 ml Enoxaparin Sodium (Lovenox) 40 mg SC DAILY [facility] Last Admin: 06/15/17 09:39 Dose: 40 mg Gabapentin (Neurontin) 800 mg PO TID [facility] Last Admin: 06/15/17 18:23 Dose: 800 mg Guaifenesin (Robitussin) 200 mg PO Q4H [facility] Last Admin: 06/15/17 22:18 Dose: 200 mg Insulin Aspart (Novolog) 0 unit SC ACHS [facility] PRN Reason: Protocol Last Admin: 06/15/17 22:13 Dose: 3 unit Insulin Glargine (Lantus) 30 unit SC HS [facility] Last Admin: 06/15/17 22:14 Dose: 30 units Lactobacillus Acidophilus (Bacid Acidophilus) 1 cap PO BID [facility] Last Admin: 06/15/17 18:23 Dose: 1 cap Lamotrigine (Lamictal) 100 mg PO Q12H [facility] Last Admin: 06/15/17 18:23 Dose: 100 mg Lorazepam (Ativan) 2 mg PO BID PRN PRN Reason: Anxiety Last Admin: 06/15/17 22:15 Dose: 2 mg Methylprednisolone (Solu-Medrol) 40 mg IVP Q8 [facility] Last Admin: 06/15/17 22:14 Dose: 40 mg Montelukast Sodium (Singulair) 10 mg PO HS [facility] Last Admin: 06/15/17 22:15 Dose: 10 mg Nitroglycerin (Nitrostat Sl Tab) 0.4 mg SL Q5M PRN PRN Reason: Pain, Mild (1-3) Last Admin: 06/12/17 22:51 Dose: 0.4 mg Nystatin (Nystop Topical Powder) 1 applic TOP BID [facility] Last Admin: 06/15/17 18:23 Dose: 1 applic Pantoprazole Sodium (Protonix Ec Tab) 40 mg PO DAILY [facility] Quetiapine Fumarate (Seroquel) 400 mg PO Q12 [facility] Last Admin: 06/15/17 22:15 Dose: 400 mg Sertraline HCl (Zoloft) 100 mg PO Q12H [facility] Last Admin: 06/15/17 18:23 Dose: 100 mg Trazodone HCl (Desyrel) 150 mg PO HS [facility] Last Admin: 06/15/17 22:15 Dose: 150 mg - Labs Labs: 06/15/17 12:11 06/15/17 12:11
[2017-06-16] MEDS: Albuterol-Ipratrop 3 mg / 0.5 (3 ml) UD INH SCH ×4 (02:41→20:03)
[2017-06-16] MEDS: guaiFENesin 200 mg/10 ml Syrup UD PO SCH ×6 (03:04→22:08)
[2017-06-16] MEDS: MethylPREDNISolone 40 mg Vial IVP SCH ×2 (05:35→13:04)
[2017-06-16] MEDS: (Novolog) Insulin Aspart, Recombinant 100 u/ml 10 ml vial SC SCH ×4 (07:32→22:04)
--- NOTE | 2017-06-16 09:01 | CP.PCM.PN ---
Subjective - Date & Time of Evaluation Date of Evaluation: 06/16/17 Time of Evaluation: 08:55 - Subjective Subjective: the patient seen and examined Still complaining off productive cough Patient tolerating trach capping and able to talk and breathe without diffic Continue IV antibiotics Continue nebulizer treatment Objective - Vital Signs/Intake and Output Vital Signs (last 24 hours): Temp Pulse Resp BP Pulse Ox 97.5 F L 83 20 143/81 95 06/16/17 07:00 06/16/17 07:05 06/16/17 07:00 06/16/17 07:00 06/16/17 07:00 Intake and Output: 06/16/17 06/16/17 06:59 18:59 Intake Total 800 Output Total 3300 Balance -2500 - Medications Medications: Current Medications Albuterol/Ipratropium (Duoneb 3 Mg/0.5 Mg (3 Ml) Ud) 3 ml INH RQ6 [facility] Last Admin: 06/16/17 07:49 Dose: 3 ml Enoxaparin Sodium (Lovenox) 40 mg SC DAILY [facility] Last Admin: 06/15/17 09:39 Dose: 40 mg Gabapentin (Neurontin) 800 mg PO TID [facility] Last Admin: 06/15/17 18:23 Dose: 800 mg Guaifenesin (Robitussin) 200 mg PO Q4H [facility] Last Admin: 06/16/17 05:40 Dose: 200 mg Insulin Aspart (Novolog) 0 unit SC ACHS [facility] PRN Reason: Protocol Last Admin: 06/16/17 07:32 Dose: 4 unit Insulin Glargine (Lantus) 30 unit SC [facility] Last Admin: 06/15/17 22:14 Dose: 30 units Lactobacillus Acidophilus (Bacid Acidophilus) 1 cap PO BID [facility] Last Admin: 06/15/17 18:23 Dose: 1 cap Lamotrigine (Lamictal) 100 mg PO Q12H [facility] Last Admin: 06/16/17 07:32 Dose: 100 mg Lorazepam (Ativan) 2 mg PO BID PRN PRN Reason: Anxiety Last Admin: 06/15/17 22:15 Dose: 2 mg Methylprednisolone (Solu-Medrol) 40 mg IVP Q8 [facility] Last Admin: 06/16/17 05:35 Dose: 40 mg Montelukast Sodium (Singulair) 10 mg PO [facility] Last Admin: 06/15/17 22:15 Dose: 10 mg Nitroglycerin (Nitrostat Sl Tab) 0.4 mg SL Q5M PRN PRN Reason: Pain, Mild (1-3) Last Admin: 06/12/17 22:51 Dose: 0.4 mg Nystatin (Nystop Topical Powder) 1 applic TOP BID [facility] Last Admin: 06/15/17 18:23 Dose: 1 applic Pantoprazole Sodium (Protonix Ec Tab) 40 mg PO DAILY [facility] Quetiapine Fumarate (Seroquel) 400 mg PO Q12 [facility] Last Admin: 06/15/17 22:15 Dose: 400 mg Sertraline HCl (Zoloft) 100 mg PO Q12H [facility] Last Admin: 06/15/17 18:23 Dose: 100 mg Trazodone HCl (Desyrel) 150 mg PO HS [facility] Last Admin: 06/15/17 22:15 Dose: 150 mg - Labs Labs: 06/15/17 12:11 06/15/17 12:11
[2017-06-16] MEDS: Enoxaparin 40 mg Syringe SC SCH (09:29)
[2017-06-16] MEDS: Lactobacillus Acidophilus 500 MU Cap PO SCH ×2 (09:31→17:48)
[2017-06-16] MEDS: Oxycodone/Acetaminophen 5/325 mg Tab PO PRN (13:02)
[2017-06-16] MEDS: Pantoprazole 40 mg EC Tab PO SCH (13:10)
--- NOTE | 2017-06-16 18:05 | CP.PCM.PN ---
Subjective - Date & Time of Evaluation Date of Evaluation: 06/16/17 Time of Evaluation: 18:00 - Subjective Subjective: Pt seen and examined, afebrile, is feeling better Objective - Vital Signs/Intake and Output Vital Signs (last 24 hours): Temp Pulse Resp BP Pulse Ox 98.2 F 89 20 126/76 95 06/16/17 15:00 06/16/17 15:00 06/16/17 15:00 06/16/17 15:00 06/16/17 15:00 Intake and Output: 06/16/17 06/16/17 06:59 18:59 Intake Total 800 400 Output Total 3300 800 Balance -2500 -400 - Medications Medications: Current Medications Albuterol/Ipratropium (Duoneb 3 Mg/0.5 Mg (3 Ml) Ud) 3 ml INH RQ6 [facility] Last Admin: 06/16/17 13:17 Dose: 3 ml Enoxaparin Sodium (Lovenox) 40 mg SC DAILY [facility] Last Admin: 06/16/17 09:29 Dose: 40 mg Gabapentin (Neurontin) 800 mg PO TID [facility] Last Admin: 06/16/17 17:49 Dose: 800 mg Guaifenesin (Robitussin) 200 mg PO Q4H [facility] Last Admin: 06/16/17 17:59 Dose: 200 mg Insulin Aspart (Novolog) 0 unit SC ACHS [facility] PRN Reason: Protocol Last Admin: 06/16/17 17:47 Dose: 6 unit Insulin Glargine (Lantus) 30 unit SC HS [facility] Last Admin: 06/15/17 22:14 Dose: 30 units Lactobacillus Acidophilus (Bacid Acidophilus) 1 cap PO BID [facility] Last Admin: 06/16/17 17:48 Dose: 1 cap Lamotrigine (Lamictal) 100 mg PO Q12H [facility] Last Admin: 06/16/17 18:01 Dose: Not Given Lorazepam (Ativan) 2 mg PO BID PRN PRN Reason: Anxiety Last Admin: 06/15/17 22:15 Dose: 2 mg Methylprednisolone (Solu-Medrol) 40 mg IVP DAILY [facility] Montelukast Sodium (Singulair) 10 mg PO HS [facility] Last Admin: 06/15/17 22:15 Dose: 10 mg Nitroglycerin (Nitrostat Sl Tab) 0.4 mg SL Q5M PRN PRN Reason: Pain, Mild (1-3) Last Admin: 06/12/17 22:51 Dose: 0.4 mg Nystatin (Nystop Topical Powder) 1 applic TOP BID [facility] Last Admin: 06/16/17 18:01 Dose: 1 applic Oxycodone/Acetaminophen (Percocet 5/325 Mg Tab) 1 tab PO Q4H PRN PRN Reason: Pain 4-7 Stop: 06/19/17 12:11 Last Admin: 06/16/17 13:02 Dose: 1 tab Pantoprazole Sodium (Protonix Ec Tab) 40 mg PO DAILY [facility] Last Admin: 06/16/17 13:10 Dose: 40 mg Quetiapine Fumarate (Seroquel) 400 mg PO Q12 [facility] Last Admin: 06/16/17 09:30 Dose: 400 mg Sertraline HCl (Zoloft) 100 mg PO Q12H [facility] Last Admin: 06/16/17 18:01 Dose: Not Given Trazodone HCl (Desyrel) 150 mg PO HS [facility] Last Admin: 06/15/17 22:15 Dose: 150 mg - Labs Labs: 06/15/17 12:11 06/15/17 12:11
[2017-06-16] MEDS: (Lantus) Insulin Glargine, Recombinant SC SCH (22:03)
--- NOTE | 2017-06-16 22:19 | PN ---
DATE: SUBJECTIVE The patient is seen. The patient is complaining of shortness of breath, but other than that, she is much improved. Psych de la cruz, she is close to baseline, and she wants to go home by next week, probably by Sunday or even earlier. She wants to attend her granddaughter's birthday. She has been compliant with her meds when seen and no behavioral problems. OBJECTIVE: VITAL SIGNS: Temperature 97.5, pulse 83, blood pressure 143/81, respirations 20, and oxygen saturation is 95%. REVIEW OF SYSTEMS: CONSTITUTIONAL: She is alert, verbal, still complaining of chronic dyspnea when seen. The patient has a trach collar. SKIN: No diaphoresis. HEENT: No headache or dizziness. NECK: As stated, has trach collar. RESPIRATORY: No acute dyspnea. CARDIOVASCULAR: No chest pain. GASTROINTESTINAL: She has very good appetite. EXTREMITIES: The patient is ambulatory. MUSCULOSKELETAL: Feels weak. NEUROLOGIC: Alert and oriented x3. GENITOURINARY: No urinary problems. MENTAL STATUS EXAMINATION: Obese female who looks stated age, alert and oriented x3. Mood is chronically anxious but this caused her baseline, chronically depressed. Affect is reactive. Speech is dazed. Thought process is coherent. Thought content, no paranoia, no hallucinations. No suicidal or homicidal ideation. Attention and memory seem to be fair. Insight and judgment are fair. Impulse control is fair. IMPRESSION: History of schizoaffective disorder bipolar type, as well as exacerbation of chronic obstructive pulmonary disease, status post trach placement, diabetes, hypertension, obesity, pneumonia. PLAN AND RECOMMENDATION: The patient seen, meds reviewed. Continue present management. The patient does not want to go for subacute rehab. She wants to go home early next week. Continue present psych meds as ordered. Wellington Dejesus MD
[2017-06-17] MEDS: Albuterol-Ipratrop 3 mg / 0.5 (3 ml) UD INH SCH ×4 (01:11→20:00)
[2017-06-17] MEDS: guaiFENesin 200 mg/10 ml Syrup UD PO SCH ×3 (01:34→10:00)
[2017-06-17] MEDS: Oxycodone/Acetaminophen 5/325 mg Tab PO PRN ×2 (01:34→10:02)
[2017-06-17] MEDS: (Novolog) Insulin Aspart, Recombinant 100 u/ml 10 ml vial SC SCH ×3 (07:32→17:40)
[2017-06-17] MEDS: Enoxaparin 40 mg Syringe SC SCH (09:23)
[2017-06-17] MEDS: Pantoprazole 40 mg EC Tab PO SCH (09:23)
[2017-06-17] MEDS: Lactobacillus Acidophilus 500 MU Cap PO SCH ×2 (09:24→17:41)
[2017-06-17] MEDS: MethylPREDNISolone 40 mg Vial IVP SCH (09:30)
[2017-06-17] MEDS: guaiFENesin 100 mg/5 ml Syrup UD PO SCH ×2 (13:15→17:40)
--- NOTE | 2017-06-17 16:00 | PN ---
DATE: SUBJECTIVE: The patient is seen. The patient has shortness of breath, but close to baseline psych de la cruz. She said wants to go home this coming week to attend her granddaughter's birthday. Medical de la cruz, she is much improved, has been compliant with meds. Sleep is much improved. No psychosis. REVIEW OF SYSTEMS: CONSTITUTIONAL: The patient is alert, verbal. She has shortness of breath, speaks in whisper, the patient has a trach. SKIN: No diaphoresis. HEENT: No headache or dizziness. NECK: Trach collar. RESPIRATORY: Has chronic dyspnea. CARDIOVASCULAR: No chest pain. GASTROINTESTINAL: She has very good appetite. EXTREMITIES: Moving extremities. MUSCULOSKELETAL: Feels weak, but refusing to go for subacute rehab. NEUROLOGICAL: Alert and oriented x3. GENITOURINARY: No dysuria. PHYSICAL EXAMINATION: GENERAL: The patient seems to be comfortable at this time. VITAL SIGNS: Temperature 97.8, pulse 104, blood pressure 159/90, respirations 20, oxygen sat 94%. MENTAL STATUS EXAMINATION: Obese female, looks her stated age. Speaks in whisper due to the trach but close to her baseline. Affect is reactive. Mood is dysphoric. Thought process is coherent. Thought content, the patient wants to go home this week. She states that she is feeling better. She does not want to go for subacute rehab. She said she wants to attend her granddaughter's birthday alliance party. Her granddaughter is about 5 years old. As stated, no psychosis. No suicidal or homicidal ideation. Attention and memory seem to be fair. Insight and judgment fair. Impulse control is fair. IMPRESSION: History of schizoaffective disorder, bipolar type, stable as well as history of exacerbation of chronic obstructive pulmonary disease, obesity, diabetes, chronic back pain. PLAN/RECOMMENDATIONS: The patient was seen, meds reviewed. Continue present management. Suggest to keep her current regimen of psych meds psych de la cruz. The patient can go home once medically cleared. Wellington Dejesus MD
[2017-06-17] MEDS ORDERED: Albuterol 0.083% Inhal Sol (2.5 mg/3 mL) UD INH STA (19:42)
[2017-06-17] MEDS ORDERED: Acetylcysteine 20% Inhal Soln (4ml) INH STA (19:48)
[2017-06-17] MEDS ORDERED: Etomidate 20 mg/10ml Inj IV ONE (20:00)
[2017-06-17] MEDS ORDERED: Succinylcholine Chloride 20 mg/ml Syr (5 ml) IV ONE (20:00)
--- NOTE | 2017-06-17 20:27 | PCM.RRT ---
EQUIPMENT ENGINEER Nurses Assessment - Situation Date: 06/17/17 Time EQUIPMENT ENGINEER was called: 19:36 EQUIPMENT ENGINEER Responder Arrival Time:: 19:37 EQUIPMENT ENGINEER Location:: Med/Surg Room Number: 654 EQUIPMENT ENGINEER Reason for Call: Change in Mental Status, Looks Sicker EQUIPMENT ENGINEER Called By: RN, Physician - IV IV Inserted during EQUIPMENT ENGINEER?: No New IV Insertion Tolerance: Excellent - Respiratory EQUIPMENT ENGINEER Delivery Method: Nasal Cannula @L/min Received Nebulizer Treatments: No Was the Patient Ventilated with Bag/Mask 100% O2?: No Secretions Suctioned?: No Was the Patient Intubated?: Yes Was the Patient Placed on a Ventilator?: No - Ventilator Settings Mode: CPAP Ventilator Respiratory Rate Settin Ventilator Tidal Volume Settin PEEP/CPAP (cm H2O): 10 SAO2 %: 98 FIO2 (% Oxygen): 60 - Diagnostic Test Ordered EKG: No Chest X-Ray: Yes (ET tube with good placement above ed, good end tidal CO2 ) CPR started during EQUIPMENT ENGINEER?: No - Vital Signs Vital Signs: Rapid Response Vital Sign Blood Pressure 159/100 Pulse Rate 103 Respiratory Rate 24 Temperature 97.5 F Oxygen Saturation 97 - [place] Coma Scale Coma Scale Eye Opening: Spontaneous Coma Scale Motor: Obeys Commands Movement Coma Scale Verbal: Oriented Coma Scale Total: 15 - Time EQUIPMENT ENGINEER Ended Time EQUIPMENT ENGINEER Ended: 20:24 - Recommendations 5) EQUIPMENT ENGINEER Level of Care Recommendations: Transfer to ICU Notifications: Attending Physician I.Reason for EQUIPMENT ENGINEER - A) Acute Change in Patient: (Select all that apply): Staff member or family is worried about patient - Neurological Status (Select all that apply): Alert, Responsive, Oriented, Verbal, Follows Commands - Respiratory Oxygen Delivery Method: Nasal Cannula @L/min (trach collar with minimal breathing through it unable to pass tube through trach collar) - Constitutional Appears: Toxic, In Acute Distress, Older Than Stated Age - Head Additional Comments: trach collar in place, unable to pass tube through - Eyes Eye Exam: EOMI, Normal appearance, PERRL - Respiratory Exam Respiratory Exam: absent: Clear to Ausculation Bilateral (rhonchi globally,) - Cardiovascular Exam Cardiovascular Exam: Tachycardia, +S1, +S2 - GI/Abdominal Exam GI & Abdominal Exam: Soft, Normal Bowel Sounds. absent: Tenderness - Neurological Exam Neurological Exam: Alert, Awake, Oriented x3 - Extremities Exam Extremities Exam: Full ROM Plan - Assessment of Findings&Treatment Plan Patient has trach collar that is not functioning trach collar removed; recommend XLT trach collar 2/2 to large body habitus with current small trach collar patient has been successfully intubated, good end tidal Co2, transfered to ICU Good vitals during EQUIPMENT ENGINEER; SaO2 of 98% on RA with trach still in place, BP 158/95, HR 90 patient was fatigued on exam, struggling to breath Etomidate 20 Succinylcholine 60 used for RSI Chest X-Ray with good placement of ET tube consult; Dr Keller for new trach collar Procedures Attestation:: I certify that I have explained the specified Operation(s) or Procedure(s), risks, benefits and reasonable alternatives to the Patient and/or other person responsible. The opportunity was given to ask questions and all questions answered - Intubation Time Out Performed: Yes Sedative: Etomidate Mg Given: 20 Paralytic: Succinylholine Mg Given: 60 Laryngoscope: Ana María ET Tube Size: 6.5 ET Tube Uncuffed: No ET Tube Secured Locarion: Teeth Patient Tolerated Procedure: Well Procedure Immediate Complications: None
[2017-06-17] MEDS ORDERED: Propofol 10 mg/ml Inj (100 ml) IV SCH (20:30)
[2017-06-17] MEDS: Propofol 10 mg/ml 1,000 MG/100 ML VIAL IV PRN (20:30)
[2017-06-17] MEDS ORDERED: Lactated Ringer's 1,000 ML IV ONE (20:55)
[2017-06-17 21:01] LABS: ABG ALLEN TEST POS; ARTERIAL BLOOD GAS HCO3 32.7 mmol/L (21-28); ARTERIAL BLOOD GAS O2 SAT 96.1 % (95-98); ARTERIAL BLOOD GAS PCO2 70 mm/Hg (35-45); ARTERIAL BLOOD GAS PH 7.35 (7.35-7.45); ARTERIAL BLOOD GAS PO2 70 mm/Hg (80-100); ARTERIAL BLOOD GAS TCO2 40.7 mmol/L (22-28)
--- NOTE | 2017-06-17 21:06 | CP.PCM.CON ---
History of Present Illness - History of Present Illness History of Present Illness: 61 year old female with a past medical history of hypertension, morbid obesity, hyperlipidemia, major depressive psychosis, bronchial asthma, chronic respiratory failure who is well known to ICU team was admitted for shortness of breath without improvement with nebulizers. Patient was transferred to the ICU unit after having difficulty breathing due to trach being dislodged. Patient was intubated while trach in place and brought to ICU for furher eval. Past medical history: Anxiety, asthma, bipolar disorder, bronchitis, chf, copd, depression, emphysema, hypertension, pneumonia, seizures, sleep apnea Past surgical hisotry: Appendectomy, Cholecystectomy Allergies :Aspirin, ceftriaxone sodium, ibuprofen, iodine, raspberry Social history: Denies tobacco, alcohol use. Denies illicit drug use. Review of Systems - Review of Systems Review of Systems: limited as patient is intubated and sedated on ventilator Past Patient History - Infectious Disease Hx of Infectious Diseases: None - Tetanus Immunizations Tetanus Immunization: Unknown - Past Medical History & Family History Past Medical History?: Yes - Past Social History Smoking Status: Never Smoked - CARDIAC Hx Cardiac Disorders: Yes Hx Congestive Heart Failure: Yes Hx Hypertension: Yes - PULMONARY Hx Chronic Obstructive Pulmonary Disease (COPD): Yes - NEUROLOGICAL Hx Neurological Disorder: Yes Hx Seizures: Yes - HEENT Hx HEENT Problems: Yes Hx Cataracts: Yes - RENAL Hx Chronic Kidney Disease: No - ENDOCRINE/METABOLIC Hx Endocrine Disorders: No - HEMATOLOGICAL/ONCOLOGICAL Hx Blood Disorders: No - INTEGUMENTARY Hx Dermatological Problems: No - MUSCULOSKELETAL/RHEUMATOLOGICAL Hx Musculoskeletal Disorders: No Hx Falls: Yes - GASTROINTESTINAL Hx Gastrointestinal Disorders: Yes Other/Comment: cholecystectomy - GENITOURINARY/GYNECOLOGICAL Hx Genitourinary Disorders: No - PSYCHIATRIC Hx Psychophysiologic Disorder: Yes Hx Anxiety: Yes Hx Bipolar Disorder: Yes Hx Depression: Yes Hx Substance Use: No - SURGICAL HISTORY Hx Surgeries: Yes Hx Appendectomy: Yes Hx Cholecystectomy: Yes Other/Comment: with Trach - ANESTHESIA Hx Anesthesia: Yes Hx Anesthesia Reactions: No Hx Malignant Hyperthermia: No Meds Allergies/Adverse Reactions: Allergies Allergy/AdvReac Type Severity Reaction Status Date / Time aspirin Allergy ANAPHYLAXIS Verified 04/26/17 22:40 ceftriaxone sodium Allergy ANAPHYLAXIS Verified 04/26/17 22:40 [From Rocephin] ibuprofen [From Motrin] Allergy ANAPHYLAXIS Verified 04/26/17 22:40 iodine Allergy ANAPHYLAXIS Verified 04/26/17 22:40 raspberry Allergy ANAPHYLAXIS Verified 04/26/17 22:40 - Medications Medications: Current Medications Albuterol/Ipratropium (Duoneb 3 Mg/0.5 Mg (3 Ml) Ud) 3 ml INH RQ6 ON LICENSE OF [facility] Last Admin: 06/17/17 13:22 Dose: 3 ml Enoxaparin Sodium (Lovenox) 40 mg SC DAILY ON LICENSE OF [facility] Last Admin: 06/17/17 09:23 Dose: 40 mg Gabapentin (Neurontin) 800 mg PO TID ON LICENSE OF [facility] Last Admin: 06/17/17 17:41 Dose: 800 mg Guaifenesin (Robitussin) 200 mg PO Q4H ON LICENSE OF [facility] Last Admin: 06/17/17 17:40 Dose: 200 mg Propofol (Diprivan) 1,000 mg in 100 mls @ 3.882 mls/hr IV .Q24H PRN; Protocol; 5 MCG/KG/MIN PRN Reason: TITRATE PER MD ORDER Lactated Ringer's 1,000 ml/ IV (SUPPLIES) 1,000 mls @ 7,764.6 mls/hr IV ONCE ONE PRN Reason: 60 ML/KG/HR Stop: 06/17/17 20:56 Insulin Aspart (Novolog) 0 unit SC [facility] ON LICENSE OF [facility] PRN Reason: Protocol Last Admin: 06/17/17 17:40 Dose: 3 unit Insulin Glargine (Lantus) 30 unit SC [facility] Last Admin: 06/16/17 22:03 Dose: 30 units Lactobacillus Acidophilus (Bacid Acidophilus) 1 cap PO BID ON LICENSE OF [facility] Last Admin: 06/17/17 17:41 Dose: 1 cap Lamotrigine (Lamictal) 100 mg PO Q12H ON LICENSE OF [facility] Last Admin: 06/17/17 18:00 Dose: Not Given Lorazepam (Ativan) 2 mg PO BID PRN PRN Reason: Anxiety Last Admin: 06/17/17 00:32 Dose: 2 mg Methylprednisolone (Solu-Medrol) 40 mg IVP DAILY ON LICENSE OF [facility] Last Admin: 06/17/17 09:30 Dose: 40 mg Montelukast Sodium (Singulair) 10 mg PO HS ON LICENSE OF [facility] Last Admin: 06/16/17 21:51 Dose: 10 mg Nitroglycerin (Nitrostat Sl Tab) 0.4 mg SL Q5M PRN PRN Reason: Pain, Mild (1-3) Last Admin: 06/12/17 22:51 Dose: 0.4 mg Nystatin (Nystop Topical Powder) 1 applic TOP BID ON LICENSE OF [facility] Last Admin: 06/17/17 17:40 Dose: 1 applic Oxycodone/Acetaminophen (Percocet 5/325 Mg Tab) 1 tab PO Q4H PRN PRN Reason: Pain 4-7 Stop: 06/19/17 12:11 Last Admin: 06/17/17 10:02 Dose: 1 tab Pantoprazole Sodium (Protonix Ec Tab) 40 mg PO DAILY ON [facility] OF [facility] Last Admin: 06/17/17 09:23 Dose: 40 mg Quetiapine Fumarate (Seroquel) 400 mg PO Q12 ON LICENSE OF [facility] Last Admin: 06/17/17 09:24 Dose: 400 mg Sertraline HCl (Zoloft) 100 mg PO Q12H ON LICENSE OF [facility] Last Admin: 06/17/17 18:00 Dose: Not Given Trazodone HCl (Desyrel) 150 mg PO HS ON LICENSE OF [facility] Last Admin: 06/16/17 21:51 Dose: 150 mg Physical Exam - Head Exam Head Exam: NORMAL INSPECTION - Eye Exam Eye Exam: PERRL - ENT Exam ENT Exam: Mucous Membranes Moist Additional comments: trach in place - Respiratory Exam Respiratory Exam: Rhonchi, Wheezes, Respiratory Distress - Cardiovascular Exam Cardiovascular Exam: +S1, +S2, +S4, Systolic Murmur - GI/Abdominal Exam GI & Abdominal Exam: Normal Bowel Sounds, Soft Additional comments: obese limited exam - Extremities Exam Extremities exam: Positive for: pedal edema Results - Vital Signs Recent Vital Signs: Last Vital Signs Temp 97.2 F L 06/17/17 15:42 Pulse 110 H 06/17/17 15:44 Resp 20 06/17/17 15:42 BP 143/90 06/17/17 15:42 Pulse Ox 92 L 06/17/17 15:42 - Labs Result Diagrams: 06/15/17 12:11 06/15/17 12:11 Labs: Laboratory Results - last 24 hr 06/16/17 06/17/17 06/17/17 21:05 02:01 06:03 Puncture Site pCO2 pO2 HCO3 ABG pH ABG Total CO2 ABG O2 Saturation ABG Base Excess Rob Test ABG Potassium A-a O2 Difference Respiratory Index Sodium Chloride Glucose Lactate Vent Mode Mechanical Rate FiO2 Tidal Volume PEEP POC Glucose (mg/dL) 314 H 213 H 149 H Arterial Blood Potassium 06/17/17 06/17/17 06/17/17 11:15 16:20 20:55 Puncture Site Rradial pCO2 70 H pO2 70 L HCO3 32.7 H ABG pH 7.35 ABG Total CO2 40.7 H ABG O2 Saturation 96.1 ABG Base Excess 10.1 H Rob Test Pos ABG Potassium 3.8 A-a O2 Difference 128.0 Respiratory Index 1.8 Sodium 143.0 Chloride 105.0 Glucose 159 H Lactate 1.2 Vent Mode Prvc Mechanical Rate 14 FiO2 40.0 Tidal Volume 450 PEEP 5 POC Glucose (mg/dL) 164 H 200 H Arterial Blood Potassium 3.8 Assessment & Plan - Assessment and Plan (Free Text) Assessment: Trach misplaced and difficulty breathing: intubated by ER, trach removed and et tube advanced to avoid any leakage from trach ostomy -place on ventilator to keep spo2 >92 and pH b/w 7.35-7.45 -ASpiration: sent sputum for culture, IV fluids, -NG tube placement: tube feeds and -propofol for sedation -DVT/PUD ppx Patietn remains ventialtor dependent. -ENT/thoracic consult to replace XLT trach -IV abx, IV fluids -sepsis protocol cc time 35 minutes excluding any time spent on procedures. - Date & Time Date: 06/17/17 Time: 20:00
[2017-06-17] MEDS ORDERED: (Novolog) Insulin Aspart, Recombinant 100 u/ml 10 ml vial SC SCH (21:15)
[2017-06-17 21:25] LABS: BASO % 0.1 % (0.0-2.0); EOS % 0.1 % (0.0-4.0); HEMOGLOBIN 12.8 g/dL (11.0-16.0); LYMPH # 1.6 K/uL (1.0-4.3); LYMPH % 10.5 % (20.0-40.0); MEAN CELL VOLUME 82.4 fL (81.0-99.0); MEAN CORPUSCULAR HEMOGLOBIN 27.2 pg (27.0-31.0); MEAN PLATELET VOLUME 8.1 fL (7.2-11.7); MONO % 6.6 % (0.0-10.0); NEUT # 12.3 K/uL (1.8-7.0); NEUT % 82.7 % (50.0-75.0); RBC 4.69 Mil/uL (3.80-5.20); RED CELL DISTRIBUTION WIDTH 15.5 % (11.5-14.5); WHITE BLOOD COUNT 14.9 K/uL (4.8-10.8)
[2017-06-17] MEDS ORDERED: Lactated Ringer's 1,000 ML IV SCH (21:30)
[2017-06-17 21:36] LABS: PROTHROMBIN TIME 11.7 SECONDS (9.7-12.2)
[2017-06-17 21:48] LABS: TROPONIN I 0.018 ng/mL (0.00-0.120)
[2017-06-17 21:54] LABS: ALB/GLOB RATIO 0.9 (1.0-2.1); ALBUMIN 3.8 g/dL (3.5-5.0); ALT/SGPT 24 U/L (9-52); AST/SGOT 32 U/L (14-36); BLOOD UREA NITROGEN 28 mg/dL (7-17); CALCIUM 8.9 mg/dl (8.6-10.4); GFR AFRICAN-AMERICAN > 60; GFR NON-AFRICAN AMERICAN 57
[2017-06-17] MEDS: Meropenem IV 1 gm in NS 50 ML IVPB SCH (22:22)
[2017-06-17] MEDS: (Lantus) Insulin Glargine, Recombinant SC SCH (22:26)
[2017-06-17 22:40] LABS: SQUAMOUS EPITHIAL 1 /hpf (0-5); URINE BACTERIA OCC (<OCC); URINE BILIRUBIN NEGATIVE (NEGATIVE); URINE CLARITY Hazy (Clear); URINE COLOR Yellow (YELLOW); URINE GLUCOSE (UA) NORMAL (Normal); URINE LEUKOCYTE ESTERASE TRACE Leu/uL (Negative); URINE PROTEIN 1+ mg/dL (NEGATIVE); URINE URIC ACID CRYSTALS OCC /hpf (<OCC); URINE UROBILINOGEN NORMAL mg/dL (0.2-1.0)
[2017-06-17 22:42] LABS: URINE BLOOD 2+ (NEGATIVE)
--- NOTE | 2017-06-17 23:38 | CP.PCM.PN ---
Subjective - Date & Time of Evaluation Date of Evaluation: 06/17/17 Time of Evaluation: 19:00 - Subjective Subjective: Pt is seen and examined today during rounds Objective - Vital Signs/Intake and Output Vital Signs (last 24 hours): Temp Pulse Resp BP Pulse Ox 97.2 F L 95 H 19 125/82 97 06/17/17 15:42 06/17/17 23:01 06/17/17 23:01 06/17/17 23:01 06/17/17 23:00 Intake and Output: 06/17/17 06/18/17 18:59 06:59 Intake Total 300 Output Total 400 Balance -100 - Medications Medications: Current Medications Albuterol/Ipratropium (Duoneb 3 Mg/0.5 Mg (3 Ml) Ud) 3 ml INH RQ6 [facility] Last Admin: 06/17/17 20:00 Dose: Not Given Enoxaparin Sodium (Lovenox) 40 mg SC DAILY [facility] Last Admin: 06/17/17 09:23 Dose: 40 mg Gabapentin (Neurontin) 800 mg PO TID [facility] Last Admin: 06/17/17 17:41 Dose: 800 mg Propofol (Diprivan) 1,000 mg in 100 mls @ 3.882 mls/hr IV .Q24H PRN; Protocol; 5 MCG/KG/MIN PRN Reason: TITRATE PER MD ORDER Last Admin: 06/17/17 20:30 Dose: 25 mcg/kg/min, 19.412 mls/hr Meropenem (Merrem Iv 1 Gm Premix) 50 mls @ 100 mls/hr IVPB Q8 [facility] PRN Reason: Protocol Last Admin: 06/17/17 22:22 Dose: 100 mls/hr Lactated Ringer's (Lactated Ringer's) 1,000 mls @ 100 mls/hr IV .Q10H [facility] Last Admin: 06/17/17 21:30 Dose: 100 mls/hr Insulin Aspart (Novolog) 0 unit SC Q6H [facility] PRN Reason: Protocol Insulin Glargine (Lantus) 30 unit SC HS [facility] Last Admin: 06/17/17 22:26 Dose: Not Given Lactobacillus Acidophilus (Bacid Acidophilus) 1 cap PO BID [facility] Last Admin: 06/17/17 17:41 Dose: 1 cap Lamotrigine (Lamictal) 100 mg PO Q12H [facility] Last Admin: 06/17/17 18:00 Dose: Not Given Lorazepam (Ativan) 2 mg PO BID PRN PRN Reason: Anxiety Last Admin: 06/17/17 00:32 Dose: 2 mg Methylprednisolone (Solu-Medrol) 40 mg IVP DAILY [facility] Last Admin: 06/17/17 09:30 Dose: 40 mg Montelukast Sodium (Singulair) 10 mg PO HS [facility] Last Admin: 06/17/17 22:26 Dose: Not Given Nitroglycerin (Nitrostat Sl Tab) 0.4 mg SL Q5M PRN PRN Reason: Pain, Mild (1-3) Last Admin: 06/12/17 22:51 Dose: 0.4 mg Nystatin (Nystop Topical Powder) 1 applic TOP BID [facility] Last Admin: 06/17/17 17:40 Dose: 1 applic Oxycodone/Acetaminophen (Percocet 5/325 Mg Tab) 1 tab PO Q4H PRN PRN Reason: Pain 4-7 Stop: 06/19/17 12:11 Last Admin: 06/17/17 10:02 Dose: 1 tab Pantoprazole Sodium (Protonix Ec Tab) 40 mg PO DAILY [facility] Last Admin: 06/17/17 09:23 Dose: 40 mg Quetiapine Fumarate (Seroquel) 400 mg PO Q12 [facility] Last Admin: 06/17/17 22:26 Dose: Not Given Sertraline HCl (Zoloft) 100 mg PO Q12H [facility] Last Admin: 06/17/17 18:00 Dose: Not Given - Labs Labs: 06/17/17 21:16 06/17/17 21:29 PT 11.7 SECONDS (9.7-12.2) 06/17/17 21:16 INR 1.0 06/17/17 21:16 APTT 30 SECONDS (21-34) 06/17/17 21:16
[2017-06-18] MEDS: (Novolog) Insulin Aspart, Recombinant 100 u/ml 10 ml vial SC SCH ×5 (00:23→23:34)
[2017-06-18] MEDS: Propofol 10 mg/ml 1,000 MG/100 ML VIAL IV PRN ×4 (01:00→18:27)
[2017-06-18] MEDS: Albuterol-Ipratrop 3 mg / 0.5 (3 ml) UD INH SCH ×3 (02:12→20:36)
[2017-06-18 05:27] LABS: BASO % 0.2 % (0.0-2.0); EOS % 0.3 % (0.0-4.0); HEMOGLOBIN 12.6 g/dL (11.0-16.0); LYMPH # 3.6 K/uL (1.0-4.3); LYMPH % 19.4 % (20.0-40.0); MEAN CELL VOLUME 81.1 fL (81.0-99.0); MEAN CORPUSCULAR HEMOGLOBIN 26.9 pg (27.0-31.0); MEAN CORPUSCULAR HGB CONC 33.2 g/dL (33.0-37.0); MEAN PLATELET VOLUME 8.2 fL (7.2-11.7); MONO # 1.3 K/uL (0.0-0.8); MONO % 6.7 % (0.0-10.0); NEUT # 13.7 K/uL (1.8-7.0); NEUT % 73.4 % (50.0-75.0); RBC 4.7 Mil/uL (3.80-5.20); RED CELL DISTRIBUTION WIDTH 15.3 % (11.5-14.5); WHITE BLOOD COUNT 18.7 K/uL (4.8-10.8)
[2017-06-18] MEDS: Meropenem IV 1 gm in NS 50 ML IVPB SCH ×3 (05:33→21:42)
[2017-06-18 05:54] LABS: ALB/GLOB RATIO 0.9 (1.0-2.1); ALBUMIN 3.6 g/dL (3.5-5.0); ALT/SGPT 29 U/L (9-52); AST/SGOT 28 U/L (14-36); BLOOD UREA NITROGEN 26 mg/dL (7-17); CALCIUM 8.9 mg/dl (8.6-10.4); GFR AFRICAN-AMERICAN > 60; GFR NON-AFRICAN AMERICAN 57
[2017-06-18 06:09] LABS: ABG ALLEN TEST POS; ARTERIAL BLOOD GAS HCO3 34.6 mmol/L (21-28); ARTERIAL BLOOD GAS O2 SAT 93.9 % (95-98); ARTERIAL BLOOD GAS PCO2 44 mm/Hg (35-45); ARTERIAL BLOOD GAS PH 7.53 (7.35-7.45); ARTERIAL BLOOD GAS PO2 53 mm/Hg (80-100); ARTERIAL BLOOD GAS TCO2 38.2 mmol/L (22-28)
--- NOTE | 2017-06-18 07:25 | PCM.PROC ---
Procedures Attestation:: I certify that I have explained the specified Operation(s) or Procedure(s), risks, benefits and reasonable alternatives to the Patient and/or other person responsible. The opportunity was given to ask questions and all questions answered - Central Line Placement Right Femoral Triple Lumen Catheter Aseptic technique was employed throughout the procedure: Hand Hygiene done prior to procedure, Full sterile barriers (mask, hair cover, sterile gown, sterile gloves), Full body sterile drape, Chloraprep Antiseptic: 2 minute prep for Femoral CVP Time Out Performed: Yes Pt. Placed on Pulse Ox Monitor: Yes Central Line Prep: Chlorhexidine-Alcohol Combination Local Anesthesia Used: Lidocaine 1% Amount of Anesthesia Used (mls): 5 (US not available) Ultrasound Used for Placement: No Central Line Lumen Inserted: triple Central Line Length: 20 cm Post Procedure: Sutured in Place, Good Blood Return, All Ports Aspirated, Flushed, Capped, Sterile Dressing Applied Secured by: Suture Post procedure dressing: Gauze, Clear vapor permeable, Chlorhexidine disc ( Biopatch) Post Procedure X-Ray: No Patient Tolerated Procedure: Well Immediate Complications: None
--- NOTE | 2017-06-18 08:03 | RAD ---
Chest x-ray single frontal view Findings: Post intubation. Comparison: 06/12/2017 Findings: Endotracheal tube extending into the midthoracic trachea. Ill-defined areas of consolidation noted at the right upper to mid lung zone as well as the left lung base. Scattered nodularity in both lung perez. Diffuse increased interstitial lung markings. Enlarged ectatic aorta with cardiomegaly. Degenerative changes in the spine and shoulders. Impression: Endotracheal tube extending into the midthoracic trachea. Ill-defined areas of consolidation noted at the right upper to mid lung zone as well as the left lung base. Scattered nodularity in both lung perez. Diffuse increased interstitial lung markings. Enlarged ectatic aorta with cardiomegaly.
--- NOTE | 2017-06-18 08:24 | RAD ---
Chest x-ray single frontal view History: Intubated. Comparison: 06/17/2017 Findings: Endotracheal tube extending into the mid thoracic trachea. NG tube extending into the stomach with the distal tip not well visualized. Consolidative changes at both lung bases; right greater left with associated small loculated right pleural effusion. Diffuse increased interstitial lung markings. Left hilar prominence. Enlarged ectatic aorta. Cardiomegaly. Degenerative changes in the spine and shoulders. Impression: Endotracheal tube extending into the mid thoracic trachea. NG tube extending into the stomach with the distal tip not well visualized. Consolidative changes at both lung bases; right greater left with associated small loculated right pleural effusion. Diffuse increased interstitial lung markings. Left hilar prominence. Enlarged ectatic aorta. Cardiomegaly.
[2017-06-18] MEDS ORDERED: Potassium Chloride 20 mEq/15 ml LIQ UD NG ONE (08:30)
--- NOTE | 2017-06-18 08:51 | CP.CCUPN ---
CCU Subjective - Physician Review Subjective (Free Text): 06/18/17 08:37 Patient seen and examined. Patient is intubated and sedated on Diprivan at this time. CCU Objective - Vital Signs / Intake & Output Vital Signs (Last 4 hours): Vital Signs Pulse Resp BP Pulse Ox 06/18/17 07:32 97 H 22 117/77 93 L 06/18/17 07:01 96 H 22 125/85 94 L 06/18/17 07:00 95 H 22 94 L 06/18/17 06:31 96 H 22 129/81 94 L 06/18/17 06:01 90 21 133/76 91 L 06/18/17 06:00 96 H 22 92 L 06/18/17 05:31 97 H 22 122/67 91 L 06/18/17 05:01 94 H 19 114/69 90 L 06/18/17 05:00 96 H 20 93 L Intake and Output (Last 8hrs): Intake & Output 06/17/17 06/18/17 06/18/17 22:59 06:59 14:59 Intake Total 288.8 1155.2 119.4 Output Total 200 550 50 Balance 88.8 605.2 69.4 Weight 269 lb 269 lb Intake: IV 200 Intake, IV Amount 288.8 955.2 119.4 Right Distal Port Femoral 50 Right Medial Port Femoral 38.8 155.2 19.4 Right Proximal Port 200 800 100 Femoral Output: Urine 200 550 50 Urethral (Sweet) 200 550 50 - Physical Exam Head: Positive for: Atraumatic, Normocephalic Pupils: Positive for: PERRL Conjunctiva: Positive for: Normal Mouth: Positive for: Moist Mucous Membranes Respiratory/Chest: Positive for: Clear to Auscultation. Negative for: Wheezes, Rales, Rhonchi Cardiovascular: Positive for: Regular Rate and Rhythm, Normal S1, S2 Abdomen: Positive for: Normal Bowel Sounds. Negative for: Tenderness Upper Extremity: Positive for: Normal Inspection Lower Extremity: Positive for: Edema (non-pitting) Skin: Positive for: Warm, Dry - Medications Active Medications: Active Medications Generic Name Dose Route Start Last Admin Trade Name Freq PRN Reason Stop Dose Admin Albuterol/Ipratropium 3 ml 06/13/17 02:00 06/18/17 02:12 Duoneb 3 Mg/0.5 Mg (3 Ml) Ud INH 3 ml RQ6 SHAYLA Administration Enoxaparin Sodium 40 mg 06/13/17 10:00 06/17/17 09:23 Lovenox SC 40 mg DAILY SHAYLA Administration Gabapentin 800 mg 06/13/17 10:00 06/17/17 17:41 Neurontin PO 800 mg TID SHAYLA Administration Propofol 1,000 mg in 100 mls @ 3.882 mls/hr 06/17/17 20:21 06/18/17 06:10 Diprivan IV 25 mcg/kg/min .Q24H PRN 19.412 mls/hr TITRATE PER MD ORDER Administration Protocol 5 MCG/KG/MIN Meropenem 50 mls @ 100 mls/hr 06/17/17 22:00 06/18/17 05:33 Merrem Iv 1 Gm Premix IVPB 100 mls/hr Q8 SHAYLA Administration Protocol Insulin Aspart 0 unit 06/18/17 00:00 06/18/17 05:26 Novolog SC Not Given Q6H [facility] Protocol Insulin Glargine 30 unit 06/12/17 22:00 06/17/17 22:26 Lantus SC Not Given HS SHAYLA Lactobacillus Acidophilus 1 cap 06/13/17 10:00 06/17/17 17:41 Bacid Acidophilus PO 1 cap BID SHAYLA Administration Lamotrigine 100 mg 06/14/17 19:00 06/18/17 08:24 Lamictal PO 100 mg Q12H SHAYLA Administration Lorazepam 2 mg 06/14/17 18:38 06/17/17 00:32 Ativan PO 2 mg BID PRN Administration Anxiety Methylprednisolone 40 mg 06/17/17 10:00 06/17/17 09:30 Solu-Medrol IVP 40 mg DAILY SHAYLA Administration Montelukast Sodium 10 mg 06/12/17 22:00 06/17/17 22:26 Singulair PO Not Given HS SHAYLA Nitroglycerin 0.4 mg 06/12/17 22:12 06/12/17 22:51 Nitrostat Sl Tab SL 0.4 mg Q5M PRN Administration Pain, Mild (1-3) Nystatin 1 applic 06/13/17 10:00 06/17/17 17:40 Nystop Topical Powder TOP 1 applic BID SHAYLA Administration Oxycodone/Acetaminophen 1 tab 06/16/17 12:10 06/17/17 10:02 Percocet 5/325 Mg Tab PO 06/19/17 12:11 1 tab Q4H PRN Administration Pain 4-7 Pantoprazole Sodium 40 mg 06/16/17 10:00 06/17/17 09:23 Protonix Ec Tab PO 40 mg DAILY SHAYLA Administration Quetiapine Fumarate 400 mg 06/13/17 22:00 06/17/17 22:26 Seroquel PO Not Given Q12 SHAYLA Sertraline HCl 100 mg 06/14/17 19:00 06/18/17 08:35 Zoloft PO 100 mg Q12H SHAYLA Administration - Patient Studies Lab Studies: Lab Studies 06/18/17 06/18/17 06/18/17 Range/Units 05:40 05:24 05:24 WBC 18.7 H (4.8-10.8) K/uL RBC 4.70 (3.80-5.20) Mil/uL Hgb 12.6 (11.0-16.0) g/dL Hct 38.1 (34.0-47.0) % MCV 81.1 (81.0-99.0) fL MCH 26.9 L (27.0-31.0) pg MCHC 33.2 (33.0-37.0) g/dL RDW 15.3 H (11.5-14.5) % Plt Count 163 (130-400) K/uL MPV 8.2 (7.2-11.7) fL Neut % (Auto) 73.4 (50.0-75.0) % Lymph % (Auto) 19.4 L (20.0-40.0) % [place] % (Auto) 6.7 (0.0-10.0) % Eos % (Auto) 0.3 (0.0-4.0) % Baso % (Auto) 0.2 (0.0-2.0) % Neut # (Auto) 13.7 H (1.8-7.0) K/uL Lymph # (Auto) 3.6 (1.0-4.3) K/uL [place] # (Auto) 1.3 H (0.0-0.8) K/uL Eos # (Auto) 0.0 (0.0-0.7) K/uL Baso # (Auto) 0.0 (0.0-0.2) K/uL PT (9.7-12.2) SECONDS INR APTT (21-34) SECONDS Puncture Site R rad pCO2 44 (35-45) mm/Hg pO2 53 L (80-100) mm/Hg HCO3 34.6 H (21-28) mmol/L ABG pH 7.53 H (7.35-7.45) ABG Total CO2 38.2 H (22-28) mmol/L ABG O2 Saturation 93.9 L (95-98) % ABG Base Excess 12.6 H (-2.0-3.0) mmol/L Rob Test Pos ABG Potassium 3.3 L (3.6-5.2) mmol/L A-a O2 Difference 249.0 mm/Hg Respiratory Index 4.7 Sodium 139.0 140 (132-148) mmol/l Chloride 103.0 95 L (98-107) mmol/L Glucose 144 H (65-105) mg/dl Lactate 1.1 (0.7-2.1) mmol/L Vent Mode Prvc Mechanical Rate 22 FiO2 50.0 % Tidal Volume 500 PEEP 5 Potassium 3.5 L (3.6-5.2) mmol/L Carbon Dioxide 33 H (22-30) mmol/L Anion Gap 16 (10-20) BUN 26 H (7-17) mg/dL Creatinine 1.0 (0.7-1.2) mg/dL Est GFR ( Amer) > 60 Est GFR (Non-Af Amer) 57 POC Glucose (mg/dL) (65-110) mg/dL Random Glucose 117 H (65-105) mg/dL Lactic Acid (0.7-2.1) mmol/L Calcium 8.9 (8.6-10.4) mg/dl Phosphorus 1.7 L (2.5-4.5) mg/dL Magnesium 1.8 (1.6-2.3) mg/dL Total Bilirubin 0.7 (0.2-1.3) mg/dL AST 28 (14-36) U/L ALT 29 (9-52) U/L Alkaline Phosphatase 90 (38-126) U/L Troponin I (0.00-0.120) ng/mL C-React Prot High Sens (1.00-3.00) mg/L NT-Pro-B Natriuret Pep (0-900) pg/mL Total Protein 7.7 (6.3-8.3) g/dL Albumin 3.6 (3.5-5.0) g/dL Globulin 4.1 H (2.2-3.9) gm/dL Albumin/Globulin Ratio 0.9 L (1.0-2.1) Procalcitonin (0.19-0.49) NG/ML Arterial Blood Potassium 3.3 L (3.6-5.2) mmol/L Urine Color (YELLOW) Urine Clarity (Clear) Urine pH (5.0-8.0) Ur Specific [place] (1.003-1.030) Urine Protein (NEGATIVE) mg/dL Urine Glucose (UA) (Normal) mg/dL Urine Ketones (NEGATIVE) mg/dL Urine Blood (NEGATIVE) Urine Nitrate (NEGATIVE) Urine Bilirubin (NEGATIVE) Urine Urobilinogen (0.2-1.0) mg/dL Ur Leukocyte Esterase (Negative) Brian/uL Urine WBC (Auto) (0-5) /hpf Urine RBC (Auto) (0-3) /hpf Ur Squamous Epith Cells (0-5) /hpf Uric Acid Crystals (<OCC) /hpf Urine Bacteria (<OCC) 06/18/17 06/18/17 06/17/17 Range/Units 04:56 02:31 23:46 WBC (4.8-10.8) K/uL RBC (3.80-5.20) Mil/uL Hgb (11.0-16.0) g/dL Hct (34.0-47.0) % MCV (81.0-99.0) fL MCH (27.0-31.0) pg MCHC (33.0-37.0) g/dL RDW (11.5-14.5) % Plt Count (130-400) K/uL MPV (7.2-11.7) fL Neut % (Auto) (50.0-75.0) % Lymph % (Auto) (20.0-40.0) % [place] % (Auto) (0.0-10.0) % Eos % (Auto) (0.0-4.0) % Baso % (Auto) (0.0-2.0) % Neut # (Auto) (1.8-7.0) K/uL Lymph # (Auto) (1.0-4.3) K/uL [place] # (Auto) (0.0-0.8) K/uL Eos # (Auto) (0.0-0.7) K/uL Baso # (Auto) (0.0-0.2) K/uL PT (9.7-12.2) SECONDS INR APTT (21-34) SECONDS Puncture Site pCO2 (35-45) mm/Hg pO2 (80-100) mm/Hg HCO3 (21-28) mmol/L ABG pH (7.35-7.45) ABG Total CO2 (22-28) mmol/L ABG O2 Saturation (95-98) % ABG Base Excess (-2.0-3.0) mmol/L Rob Test ABG Potassium (3.6-5.2) mmol/L A-a O2 Difference mm/Hg Respiratory Index Sodium (132-148) mmol/l Chloride (98-107) mmol/L Glucose (65-105) mg/dl Lactate (0.7-2.1) mmol/L Vent Mode Mechanical Rate FiO2 % Tidal Volume PEEP Potassium (3.6-5.2) mmol/L Carbon Dioxide (22-30) mmol/L Anion Gap (10-20) BUN (7-17) mg/dL Creatinine (0.7-1.2) mg/dL Est GFR ( Amer) Est GFR (Non-Af Amer) POC Glucose (mg/dL) 116 H 156 H (65-110) mg/dL Random Glucose (65-105) mg/dL Lactic Acid 1.5 (0.7-2.1) mmol/L Calcium (8.6-10.4) mg/dl Phosphorus (2.5-4.5) mg/dL Magnesium (1.6-2.3) mg/dL Total Bilirubin (0.2-1.3) mg/dL AST (14-36) U/L ALT (9-52) U/L Alkaline Phosphatase (38-126) U/L Troponin I (0.00-0.120) ng/mL C-React Prot High Sens (1.00-3.00) mg/L NT-Pro-B Natriuret Pep (0-900) pg/mL Total Protein (6.3-8.3) g/dL Albumin (3.5-5.0) g/dL Globulin (2.2-3.9) gm/dL Albumin/Globulin Ratio (1.0-2.1) Procalcitonin (0.19-0.49) NG/ML Arterial Blood Potassium (3.6-5.2) mmol/L Urine Color (YELLOW) Urine Clarity (Clear) Urine pH (5.0-8.0) Ur Specific [place] (1.003-1.030) Urine Protein (NEGATIVE) mg/dL Urine Glucose (UA) (Normal) mg/dL Urine Ketones (NEGATIVE) mg/dL Urine Blood (NEGATIVE) Urine Nitrate (NEGATIVE) Urine Bilirubin (NEGATIVE) Urine Urobilinogen (0.2-1.0) mg/dL Ur Leukocyte Esterase (Negative) Brian/uL Urine WBC (Auto) (0-5) /hpf Urine RBC (Auto) (0-3) /hpf Ur Squamous Epith Cells (0-5) /hpf Uric Acid Crystals (<OCC) /hpf Urine Bacteria (<OCC) 06/17/17 06/17/17 06/17/17 Range/Units 22:28 21:29 21:29 WBC (4.8-10.8) K/uL RBC (3.80-5.20) Mil/uL Hgb (11.0-16.0) g/dL Hct (34.0-47.0) % MCV (81.0-99.0) fL MCH (27.0-31.0) pg MCHC (33.0-37.0) g/dL RDW (11.5-14.5) % Plt Count (130-400) K/uL MPV (7.2-11.7) fL Neut % (Auto) (50.0-75.0) % Lymph % (Auto) (20.0-40.0) % [place] % (Auto) (0.0-10.0) % Eos % (Auto) (0.0-4.0) % Baso % (Auto) (0.0-2.0) % Neut # (Auto) (1.8-7.0) K/uL Lymph # (Auto) (1.0-4.3) K/uL [place] # (Auto) (0.0-0.8) K/uL Eos # (Auto) (0.0-0.7) K/uL Baso # (Auto) (0.0-0.2) K/uL PT (9.7-12.2) SECONDS INR APTT (21-34) SECONDS Puncture Site pCO2 (35-45) mm/Hg pO2 (80-100) mm/Hg HCO3 (21-28) mmol/L ABG pH (7.35-7.45) ABG Total CO2 (22-28) mmol/L ABG O2 Saturation (95-98) % ABG Base Excess (-2.0-3.0) mmol/L Rob Test ABG Potassium (3.6-5.2) mmol/L A-a O2 Difference mm/Hg Respiratory Index Sodium 140 (132-148) mmol/l Chloride 94 L (98-107) mmol/L Glucose (65-105) mg/dl Lactate (0.7-2.1) mmol/L Vent Mode Mechanical Rate FiO2 % Tidal Volume PEEP Potassium 4.3 (3.6-5.2) mmol/L Carbon Dioxide 34 H (22-30) mmol/L Anion Gap 16 (10-20) BUN 28 H (7-17) mg/dL Creatinine 1.0 (0.7-1.2) mg/dL Est GFR ( Amer) > 60 Est GFR (Non-Af Amer) 57 POC Glucose (mg/dL) (65-110) mg/dL Random Glucose 140 H (65-105) mg/dL Lactic Acid (0.7-2.1) mmol/L Calcium 8.9 (8.6-10.4) mg/dl Phosphorus 4.1 (2.5-4.5) mg/dL Magnesium 1.9 (1.6-2.3) mg/dL Total Bilirubin 0.7 (0.2-1.3) mg/dL AST 32 (14-36) U/L ALT 24 (9-52) U/L Alkaline Phosphatase 91 (38-126) U/L Troponin I (0.00-0.120) ng/mL C-React Prot High Sens 14.67 H (1.00-3.00) mg/L NT-Pro-B Natriuret Pep (0-900) pg/mL Total Protein 8.1 (6.3-8.3) g/dL Albumin 3.8 (3.5-5.0) g/dL Globulin 4.3 H (2.2-3.9) gm/dL Albumin/Globulin Ratio 0.9 L (1.0-2.1) Procalcitonin (0.19-0.49) NG/ML Arterial Blood Potassium (3.6-5.2) mmol/L Urine Color Yellow (YELLOW) Urine Clarity Hazy (Clear) Urine pH 5.0 (5.0-8.0) Ur Specific [place] 1.026 (1.003-1.030) Urine Protein 1+ H (NEGATIVE) mg/dL Urine Glucose (UA) Normal (Normal) mg/dL Urine Ketones Negative (NEGATIVE) mg/dL Urine Blood 2+ H (NEGATIVE) Urine Nitrate Negative (NEGATIVE) Urine Bilirubin Negative (NEGATIVE) Urine Urobilinogen Normal (0.2-1.0) mg/dL Ur Leukocyte Esterase Trace (Negative) Brian/uL Urine WBC (Auto) 3 (0-5) /hpf Urine RBC (Auto) 20 H (0-3) /hpf Ur Squamous Epith Cells 1 (0-5) /hpf Uric Acid Crystals Occ H (<OCC) /hpf Urine Bacteria Occ H (<OCC) 06/17/17 06/17/17 06/17/17 Range/Units 21:16 21:16 21:16 WBC 14.9 H (4.8-10.8) K/uL RBC 4.69 (3.80-5.20) Mil/uL Hgb 12.8 (11.0-16.0) g/dL Hct 38.6 (34.0-47.0) % MCV 82.4 (81.0-99.0) fL MCH 27.2 (27.0-31.0) pg MCHC 33.0 (33.0-37.0) g/dL RDW 15.5 H (11.5-14.5) % Plt Count 157 (130-400) K/uL MPV 8.1 (7.2-11.7) fL Neut % (Auto) 82.7 H (50.0-75.0) % Lymph % (Auto) 10.5 L (20.0-40.0) % [place] % (Auto) 6.6 (0.0-10.0) % Eos % (Auto) 0.1 (0.0-4.0) % Baso % (Auto) 0.1 (0.0-2.0) % Neut # (Auto) 12.3 H (1.8-7.0) K/uL Lymph # (Auto) 1.6 (1.0-4.3) K/uL [place] # (Auto) 1.0 H (0.0-0.8) K/uL Eos # (Auto) 0.0 (0.0-0.7) K/uL Baso # (Auto) 0.0 (0.0-0.2) K/uL PT 11.7 (9.7-12.2) SECONDS INR 1.0 APTT 30 (21-34) SECONDS Puncture Site pCO2 (35-45) mm/Hg pO2 (80-100) mm/Hg HCO3 (21-28) mmol/L ABG pH (7.35-7.45) ABG Total CO2 (22-28) mmol/L ABG O2 Saturation (95-98) % ABG Base Excess (-2.0-3.0) mmol/L Rob Test ABG Potassium (3.6-5.2) mmol/L A-a O2 Difference mm/Hg Respiratory Index Sodium (132-148) mmol/l Chloride (98-107) mmol/L Glucose (65-105) mg/dl Lactate (0.7-2.1) mmol/L Vent Mode Mechanical Rate FiO2 % Tidal Volume PEEP Potassium (3.6-5.2) mmol/L Carbon Dioxide (22-30) mmol/L Anion Gap (10-20) BUN (7-17) mg/dL Creatinine (0.7-1.2) mg/dL Est GFR ( Amer) Est GFR (Non-Af Amer) POC Glucose (mg/dL) (65-110) mg/dL Random Glucose (65-105) mg/dL Lactic Acid (0.7-2.1) mmol/L Calcium (8.6-10.4) mg/dl Phosphorus (2.5-4.5) mg/dL Magnesium (1.6-2.3) mg/dL Total Bilirubin (0.2-1.3) mg/dL AST (14-36) U/L ALT (9-52) U/L Alkaline Phosphatase (38-126) U/L Troponin I 0.0180 (0.00-0.120) ng/mL C-React Prot High Sens (1.00-3.00) mg/L NT-Pro-B Natriuret Pep 248 (0-900) pg/mL Total Protein (6.3-8.3) g/dL Albumin (3.5-5.0) g/dL Globulin (2.2-3.9) gm/dL Albumin/Globulin Ratio (1.0-2.1) Procalcitonin (0.19-0.49) NG/ML Arterial Blood Potassium (3.6-5.2) mmol/L Urine Color (YELLOW) Urine Clarity (Clear) Urine pH (5.0-8.0) Ur Specific [place] (1.003-1.030) Urine Protein (NEGATIVE) mg/dL Urine Glucose (UA) (Normal) mg/dL Urine Ketones (NEGATIVE) mg/dL Urine Blood (NEGATIVE) Urine Nitrate (NEGATIVE) Urine Bilirubin (NEGATIVE) Urine Urobilinogen (0.2-1.0) mg/dL Ur Leukocyte Esterase (Negative) Brian/uL Urine WBC (Auto) (0-5) /hpf Urine RBC (Auto) (0-3) /hpf Ur Squamous Epith Cells (0-5) /hpf Uric Acid Crystals (<OCC) /hpf Urine Bacteria (<OCC) 06/17/17 06/17/17 06/17/17 Range/Units 21:16 20:55 16:20 WBC (4.8-10.8) K/uL RBC (3.80-5.20) Mil/uL Hgb (11.0-16.0) g/dL Hct (34.0-47.0) % MCV (81.0-99.0) fL MCH (27.0-31.0) pg MCHC (33.0-37.0) g/dL RDW (11.5-14.5) % Plt Count (130-400) K/uL MPV (7.2-11.7) fL Neut % (Auto) (50.0-75.0) % Lymph % (Auto) (20.0-40.0) % [place] % (Auto) (0.0-10.0) % Eos % (Auto) (0.0-4.0) % Baso % (Auto) (0.0-2.0) % Neut # (Auto) (1.8-7.0) K/uL Lymph # (Auto) (1.0-4.3) K/uL [place] # (Auto) (0.0-0.8) K/uL Eos # (Auto) (0.0-0.7) K/uL Baso # (Auto) (0.0-0.2) K/uL PT (9.7-12.2) SECONDS INR APTT (21-34) SECONDS Puncture Site Rradial pCO2 70 H (35-45) mm/Hg pO2 70 L (80-100) mm/Hg HCO3 32.7 H (21-28) mmol/L ABG pH 7.35 (7.35-7.45) ABG Total CO2 40.7 H (22-28) mmol/L ABG O2 Saturation 96.1 (95-98) % ABG Base Excess 10.1 H (-2.0-3.0) mmol/L Orb Test Pos ABG Potassium 3.8 (3.6-5.2) mmol/L A-a O2 Difference 128.0 mm/Hg Respiratory Index 1.8 Sodium 143.0 (132-148) mmol/l Chloride 105.0 (98-107) mmol/L Glucose 159 H (65-105) mg/dl Lactate 1.2 (0.7-2.1) mmol/L Vent Mode Prvc Mechanical Rate 14 FiO2 40.0 % Tidal Volume 450 PEEP 5 Potassium (3.6-5.2) mmol/L Carbon Dioxide (22-30) mmol/L Anion Gap (10-20) BUN (7-17) mg/dL Creatinine (0.7-1.2) mg/dL Est GFR ( Amer) Est GFR (Non-Af Amer) POC Glucose (mg/dL) 200 H (65-110) mg/dL Random Glucose (65-105) mg/dL Lactic Acid (0.7-2.1) mmol/L Calcium (8.6-10.4) mg/dl Phosphorus (2.5-4.5) mg/dL Magnesium (1.6-2.3) mg/dL Total Bilirubin (0.2-1.3) mg/dL AST (14-36) U/L ALT (9-52) U/L Alkaline Phosphatase (38-126) U/L Troponin I (0.00-0.120) ng/mL C-React Prot High Sens (1.00-3.00) mg/L NT-Pro-B Natriuret Pep (0-900) pg/mL Total Protein (6.3-8.3) g/dL Albumin (3.5-5.0) g/dL Globulin (2.2-3.9) gm/dL Albumin/Globulin Ratio (1.0-2.1) Procalcitonin < 0.05 L (0.19-0.49) NG/ML Arterial Blood Potassium 3.8 (3.6-5.2) mmol/L Urine Color (YELLOW) Urine Clarity (Clear) Urine pH (5.0-8.0) Ur Specific [place] (1.003-1.030) Urine Protein (NEGATIVE) mg/dL Urine Glucose (UA) (Normal) mg/dL Urine Ketones (NEGATIVE) mg/dL Urine Blood (NEGATIVE) Urine Nitrate (NEGATIVE) Urine Bilirubin (NEGATIVE) Urine Urobilinogen (0.2-1.0) mg/dL Ur Leukocyte Esterase (Negative) Brian/uL Urine WBC (Auto) (0-5) /hpf Urine RBC (Auto) (0-3) /hpf Ur Squamous Epith Cells (0-5) /hpf Uric Acid Crystals (<OCC) /hpf Urine Bacteria (<OCC) 06/17/17 Range/Units 11:15 WBC (4.8-10.8) K/uL RBC (3.80-5.20) Mil/uL Hgb (11.0-16.0) g/dL Hct (34.0-47.0) % MCV (81.0-99.0) fL MCH (27.0-31.0) pg MCHC (33.0-37.0) g/dL RDW (11.5-14.5) % Plt Count (130-400) K/uL MPV (7.2-11.7) fL Neut % (Auto) (50.0-75.0) % Lymph % (Auto) (20.0-40.0) % [place] % (Auto) (0.0-10.0) % Eos % (Auto) (0.0-4.0) % Baso % (Auto) (0.0-2.0) % Neut # (Auto) (1.8-7.0) K/uL Lymph # (Auto) (1.0-4.3) K/uL [place] # (Auto) (0.0-0.8) K/uL Eos # (Auto) (0.0-0.7) K/uL Baso # (Auto) (0.0-0.2) K/uL PT (9.7-12.2) SECONDS INR APTT (21-34) SECONDS Puncture Site pCO2 (35-45) mm/Hg pO2 (80-100) mm/Hg HCO3 (21-28) mmol/L ABG pH (7.35-7.45) ABG Total CO2 (22-28) mmol/L ABG O2 Saturation (95-98) % ABG Base Excess (-2.0-3.0) mmol/L Rob Test ABG Potassium (3.6-5.2) mmol/L A-a O2 Difference mm/Hg Respiratory Index Sodium (132-148) mmol/l Chloride (98-107) mmol/L Glucose (65-105) mg/dl Lactate (0.7-2.1) mmol/L Vent Mode Mechanical Rate FiO2 % Tidal Volume PEEP Potassium (3.6-5.2) mmol/L Carbon Dioxide (22-30) mmol/L Anion Gap (10-20) BUN (7-17) mg/dL Creatinine (0.7-1.2) mg/dL Est GFR ( Amer) Est GFR (Non-Af Amer) POC Glucose (mg/dL) 164 H (65-110) mg/dL Random Glucose (65-105) mg/dL Lactic Acid (0.7-2.1) mmol/L Calcium (8.6-10.4) mg/dl Phosphorus (2.5-4.5) mg/dL Magnesium (1.6-2.3) mg/dL Total Bilirubin (0.2-1.3) mg/dL AST (14-36) U/L ALT (9-52) U/L Alkaline Phosphatase (38-126) U/L Troponin I (0.00-0.120) ng/mL C-React Prot High Sens (1.00-3.00) mg/L NT-Pro-B Natriuret Pep (0-900) pg/mL Total Protein (6.3-8.3) g/dL Albumin (3.5-5.0) g/dL Globulin (2.2-3.9) gm/dL Albumin/Globulin Ratio (1.0-2.1) Procalcitonin (0.19-0.49) NG/ML Arterial Blood Potassium (3.6-5.2) mmol/L Urine Color (YELLOW) Urine Clarity (Clear) Urine pH (5.0-8.0) Ur Specific [place] (1.003-1.030) Urine Protein (NEGATIVE) mg/dL Urine Glucose (UA) (Normal) mg/dL Urine Ketones (NEGATIVE) mg/dL Urine Blood (NEGATIVE) Urine Nitrate (NEGATIVE) Urine Bilirubin (NEGATIVE) Urine Urobilinogen (0.2-1.0) mg/dL Ur Leukocyte Esterase (Negative) Brian/uL Urine WBC (Auto) (0-5) /hpf Urine RBC (Auto) (0-3) /hpf Ur Squamous Epith Cells (0-5) /hpf Uric Acid Crystals (<OCC) /hpf Urine Bacteria (<OCC) Laboratory Results - last 24 hr 06/17/17 06/17/17 06/17/17 11:15 16:20 20:55 WBC RBC Hgb Hct MCV MCH MCHC RDW Plt Count MPV Neut % (Auto) Lymph % (Auto) [place] % (Auto) Eos % (Auto) Baso % (Auto) Neut # (Auto) Lymph # (Auto) [place] # (Auto) Eos # (Auto) Baso # (Auto) PT INR APTT Puncture Site Rradial pCO2 70 H pO2 70 L HCO3 32.7 H ABG pH 7.35 ABG Total CO2 40.7 H ABG O2 Saturation 96.1 ABG Base Excess 10.1 H Rob Test Pos ABG Potassium 3.8 A-a O2 Difference 128.0 Respiratory Index 1.8 Sodium 143.0 Chloride 105.0 Glucose 159 H Lactate 1.2 Vent Mode Prvc Mechanical Rate 14 FiO2 40.0 Tidal Volume 450 PEEP 5 Potassium Carbon Dioxide Anion Gap BUN Creatinine Est GFR ( Amer) Est GFR (Non-Af Amer) POC Glucose (mg/dL) 164 H 200 H Random Glucose Lactic Acid Calcium Phosphorus Magnesium Total Bilirubin AST ALT Alkaline Phosphatase Troponin I C-React Prot High Sens NT-Pro-B Natriuret Pep Total Protein Albumin Globulin Albumin/Globulin Ratio Procalcitonin Arterial Blood Potassium 3.8 Urine Color Urine Clarity Urine pH Ur Specific [place] Urine Protein Urine Glucose (UA) Urine Ketones Urine Blood Urine Nitrate Urine Bilirubin Urine Urobilinogen Ur Leukocyte Esterase Urine WBC (Auto) Urine RBC (Auto) Ur Squamous Epith Cells Uric Acid Crystals Urine Bacteria 06/17/17 06/17/17 06/17/17 21:16 21:16 21:16 WBC 14.9 H RBC 4.69 Hgb 12.8 Hct 38.6 MCV 82.4 MCH 27.2 MCHC 33.0 RDW 15.5 H Plt Count 157 MPV 8.1 Neut % (Auto) 82.7 H Lymph % (Auto) 10.5 L [place] % (Auto) 6.6 Eos % (Auto) 0.1 Baso % (Auto) 0.1 Neut # (Auto) 12.3 H Lymph # (Auto) 1.6 [place] # (Auto) 1.0 H Eos # (Auto) 0.0 Baso # (Auto) 0.0 PT INR APTT Puncture Site pCO2 pO2 HCO3 ABG pH ABG Total CO2 ABG O2 Saturation ABG Base Excess Rob Test ABG Potassium A-a O2 Difference Respiratory Index Sodium Chloride Glucose Lactate Vent Mode Mechanical Rate FiO2 Tidal Volume PEEP Potassium Carbon Dioxide Anion Gap BUN Creatinine Est GFR ( Amer) Est GFR (Non-Af Amer) POC Glucose (mg/dL) Random Glucose Lactic Acid Calcium Phosphorus Magnesium Total Bilirubin AST ALT Alkaline Phosphatase Troponin I 0.0180 C-React Prot High Sens NT-Pro-B Natriuret Pep 248 Total Protein Albumin Globulin Albumin/Globulin Ratio Procalcitonin < 0.05 L Arterial Blood Potassium Urine Color Urine Clarity Urine pH Ur Specific [place] Urine Protein Urine Glucose (UA) Urine Ketones Urine Blood Urine Nitrate Urine Bilirubin Urine Urobilinogen Ur Leukocyte Esterase Urine WBC (Auto) Urine RBC (Auto) Ur Squamous Epith Cells Uric Acid Crystals Urine Bacteria 06/17/17 06/17/17 06/17/17 21:16 21:29 21:29 WBC RBC Hgb Hct MCV MCH MCHC RDW Plt Count MPV Neut % (Auto) Lymph % (Auto) [place] % (Auto) Eos % (Auto) Baso % (Auto) Neut # (Auto) Lymph # (Auto) [place] # (Auto) Eos # (Auto) Baso # (Auto) PT 11.7 INR 1.0 APTT 30 Puncture Site pCO2 pO2 HCO3 ABG pH ABG Total CO2 ABG O2 Saturation ABG Base Excess Rob Test ABG Potassium A-a O2 Difference Respiratory Index Sodium 140 Chloride 94 L Glucose Lactate Vent Mode Mechanical Rate FiO2 Tidal Volume PEEP Potassium 4.3 Carbon Dioxide 34 H Anion Gap 16 BUN 28 H Creatinine 1.0 Est GFR ( Amer) > 60 Est GFR (Non-Af Amer) 57 POC Glucose (mg/dL) Random Glucose 140 H Lactic Acid Calcium 8.9 Phosphorus 4.1 Magnesium 1.9 Total Bilirubin 0.7 AST 32 ALT 24 Alkaline Phosphatase 91 Troponin I C-React Prot High Sens 14.67 H NT-Pro-B Natriuret Pep Total Protein 8.1 Albumin 3.8 Globulin 4.3 H Albumin/Globulin Ratio 0.9 L Procalcitonin Arterial Blood Potassium Urine Color Urine Clarity Urine pH Ur Specific [place] Urine Protein Urine Glucose (UA) Urine Ketones Urine Blood Urine Nitrate Urine Bilirubin Urine Urobilinogen Ur Leukocyte Esterase Urine WBC (Auto) Urine RBC (Auto) Ur Squamous Epith Cells Uric Acid Crystals Urine Bacteria 06/17/17 06/17/17 06/18/17 22:28 23:46 02:31 WBC RBC Hgb Hct MCV MCH MCHC RDW Plt Count MPV Neut % (Auto) Lymph % (Auto) [place] % (Auto) Eos % (Auto) Baso % (Auto) Neut # (Auto) Lymph # (Auto) [place] # (Auto) Eos # (Auto) Baso # (Auto) PT INR APTT Puncture Site pCO2 pO2 HCO3 ABG pH ABG Total CO2 ABG O2 Saturation ABG Base Excess Rob Test ABG Potassium A-a O2 Difference Respiratory Index Sodium Chloride Glucose Lactate Vent Mode Mechanical Rate FiO2 Tidal Volume PEEP Potassium Carbon Dioxide Anion Gap BUN Creatinine Est GFR ( Amer) Est GFR (Non-Af Amer) POC Glucose (mg/dL) 156 H Random Glucose Lactic Acid 1.5 Calcium Phosphorus Magnesium Total Bilirubin AST ALT Alkaline Phosphatase Troponin I C-React Prot High Sens NT-Pro-B Natriuret Pep Total Protein Albumin Globulin Albumin/Globulin Ratio Procalcitonin Arterial Blood Potassium Urine Color Yellow Urine Clarity Hazy Urine pH 5.0 Ur Specific [place] 1.026 Urine Protein 1+ H Urine Glucose (UA) Normal Urine Ketones Negative Urine Blood 2+ H Urine Nitrate Negative Urine Bilirubin Negative Urine Urobilinogen Normal Ur Leukocyte Esterase Trace Urine WBC (Auto) 3 Urine RBC (Auto) 20 H Ur Squamous Epith Cells 1 Uric Acid Crystals Occ H Urine Bacteria Occ H 06/18/17 06/18/17 06/18/17 04:56 05:24 05:24 WBC 18.7 H RBC 4.70 Hgb 12.6 Hct 38.1 MCV 81.1 MCH 26.9 L MCHC 33.2 RDW 15.3 H Plt Count 163 MPV 8.2 Neut % (Auto) 73.4 Lymph % (Auto) 19.4 L [place] % (Auto) 6.7 Eos % (Auto) 0.3 Baso % (Auto) 0.2 Neut # (Auto) 13.7 H Lymph # (Auto) 3.6 [place] # (Auto) 1.3 H Eos # (Auto) 0.0 Baso # (Auto) 0.0 PT INR APTT Puncture Site pCO2 pO2 HCO3 ABG pH ABG Total CO2 ABG O2 Saturation ABG Base Excess Rob Test ABG Potassium A-a O2 Difference Respiratory Index Sodium 140 Chloride 95 L Glucose Lactate Vent Mode Mechanical Rate FiO2 Tidal Volume PEEP Potassium 3.5 L Carbon Dioxide 33 H Anion Gap 16 BUN 26 H Creatinine 1.0 Est GFR ( Amer) > 60 Est GFR (Non-Af Amer) 57 POC Glucose (mg/dL) 116 H Random Glucose 117 H Lactic Acid Calcium 8.9 Phosphorus 1.7 L Magnesium 1.8 Total Bilirubin 0.7 AST 28 ALT 29 Alkaline Phosphatase 90 Troponin I C-React Prot High Sens NT-Pro-B Natriuret Pep Total Protein 7.7 Albumin 3.6 Globulin 4.1 H Albumin/Globulin Ratio 0.9 L Procalcitonin Arterial Blood Potassium Urine Color Urine Clarity Urine pH Ur Specific [place] Urine Protein Urine Glucose (UA) Urine Ketones Urine Blood Urine Nitrate Urine Bilirubin Urine Urobilinogen Ur Leukocyte Esterase Urine WBC (Auto) Urine RBC (Auto) Ur Squamous Epith Cells Uric Acid Crystals Urine Bacteria 06/18/17 05:40 WBC RBC Hgb Hct MCV MCH MCHC RDW Plt Count MPV Neut % (Auto) Lymph % (Auto) [place] % (Auto) Eos % (Auto) Baso % (Auto) Neut # (Auto) Lymph # (Auto) [place] # (Auto) Eos # (Auto) Baso # (Auto) PT INR APTT Puncture Site R rad pCO2 44 pO2 53 L HCO3 34.6 H ABG pH 7.53 H ABG Total CO2 38.2 H ABG O2 Saturation 93.9 L ABG Base Excess 12.6 H Rob Test Pos ABG Potassium 3.3 L A-a O2 Difference 249.0 Respiratory Index 4.7 Sodium 139.0 Chloride 103.0 Glucose 144 H Lactate 1.1 Vent Mode Prvc Mechanical Rate 22 FiO2 50.0 Tidal Volume 500 PEEP 5 Potassium Carbon Dioxide Anion Gap BUN Creatinine Est GFR ( Amer) Est GFR (Non-Af Amer) POC Glucose (mg/dL) Random Glucose Lactic Acid Calcium Phosphorus Magnesium Total Bilirubin AST ALT Alkaline Phosphatase Troponin I C-React Prot High Sens NT-Pro-B Natriuret Pep Total Protein Albumin Globulin Albumin/Globulin Ratio Procalcitonin Arterial Blood Potassium 3.3 L Urine Color Urine Clarity Urine pH Ur Specific [place] Urine Protein Urine Glucose (UA) Urine Ketones Urine Blood Urine Nitrate Urine Bilirubin Urine Urobilinogen Ur Leukocyte Esterase Urine WBC (Auto) Urine RBC (Auto) Ur Squamous Epith Cells Uric Acid Crystals Urine Bacteria EKG/Cardiology Studies: Cardiology / EKG Studies 06/17/17 20:55 ELECTROCARDIOGRAM Stat Comment: Mode Of Transportation: Reason For Exam: Sepsis Patient Isolation: Contact Fingerstick Blood Sugar Results: 200 Critical Care Progress Note - Nutrition Nutrition: Nutrition Category Date Time Status Consistent Carbohydrate [DIET] Diets 06/12/17 Dinner Active Assessment/Plan - Assessment and Plan (Free Text) Assessment: This is a 61 year old female with PMHx COPD, DM , schizoaffective disorder ( bipolar type) who presented for shortness of breath. CHIMNEY SWEEPER called for shortness of breath. Patient intubated due to shortness of breath while on trach likely due to thick mucus plug. Tracheostomy was removed. Patient intubated and transferred to ICU. Neuro Intubated and sedated on Diprivan Cardio No active issues Pulm Assessment: Respiratory failure, tracheostomy Duoneb Q6H Singulair 10 mg HS Solumedrol 40 mg IV daily Surgery consulted, plan to put new trach today GI Tube feeds Protonix 40 mg PO daily Endocrine Assessment: DM 2 Novolog ISS Q6H Lantus 30 units SC HS Gabapentin 800 mg TID Infectious Disease Merrem Q8H Vancomycin 1 gm IV Q12H Psych Assessment: Schizoaffective disorder bipolar type Psych on consult Per Dr. Lopez, the following medications are held at this time due to intubation/sedation: Lamictal 100 Q12, Zoloft 100 mg Q12, Seroquel 400 mg Q12 Prophylaxis Lovenox 40 mg SC daily Protonix 40 mg PO daily Discussed with Dr. Gonzalez
[2017-06-18] MEDS: Lactobacillus Acidophilus 500 MU Cap PO SCH ×2 (09:23→17:44)
[2017-06-18] MEDS: Pantoprazole 40 mg EC Tab PO SCH (09:23)
[2017-06-18] MEDS: Enoxaparin 40 mg Syringe SC SCH (09:23)
[2017-06-18] MEDS: MethylPREDNISolone 40 mg Vial IVP SCH (09:23)
[2017-06-18] MEDS ORDERED: Potassium Phosphate 15 MMOLE in Dextrose 5% In Water 250 ML IVPB ONE (09:49)
--- NOTE | 2017-06-18 11:08 | CP.PCM.CON ---
History of Present Illness - History of Present Illness History of Present Illness: 61 y/o female with history of COPD brought to ED by EMS for evaluation of sob and cough. Patient is non verbal secondary to trach tube. Patient was admitted for COPD exacerbation 04/27-05/[address] Khan service. HPI limited secondary to patient condition. admitted to ICU s/p trach and now intubated via ETT - Medical History PMH: Anxiety, Asthma, Bipolar Disorder, Bronchitis, CHF, COPD, Depression, Emphysema, HTN, Pneumonia, Seizures, Sleep Apnea Surgical History: Appendectomy, Cholecystectomy - [facility] Procedures ASSISTANCE WITH RESPIRATORY VENTILATION, <24 HRS, CPAP (03/14/16) CENTRAL VENOUS CATHETER PLACEMENT WITH GUIDANCE (10/24/14) CHANGE TRACHEOSTOMY DEVICE IN [place], EXTERNAL APPROACH (08/25/16) CONTINUOUS INVASIVE MECHANICAL VENTILATION <96 CONSEC HRS (03/07/14) ENTERAL INFUSION OF CONCENTRATED NUT. SUBSTANCES (09/17/12) INSERT ENDOTRACHEAL TUBE (09/17/12) INSERTION OF INFUSION DEV INTO SUP VENA CAVA, PERC APPROACH (04/27/17) INTRODUCE OF OTH THERAP SUBST INTO RESP TRACT, VIA OPENING (05/03/15) NEBULIZER THERAPY (09/17/12) RESPIRATORY VENTILATION, 24-96 CONSECUTIVE HOURS (04/27/17) RESPIRATORY VENTILATION, GREATER THAN 96 CONSECUTIVE HOURS (02/27/17) Review of Systems - Review of Systems All systems: reviewed and no additional remarkable complaints except Past Patient History - Infectious Disease Hx of Infectious Diseases: None - Tetanus Immunizations Tetanus Immunization: Unknown - Past Medical History & Family History Past Medical History?: Yes - Past Social History Smoking Status: Never Smoked - CARDIAC Hx Cardiac Disorders: Yes Hx Congestive Heart Failure: Yes Hx Hypertension: Yes - PULMONARY Hx Chronic Obstructive Pulmonary Disease (COPD): Yes - NEUROLOGICAL Hx Neurological Disorder: Yes Hx Seizures: Yes - HEENT Hx HEENT Problems: Yes Hx Cataracts: Yes - RENAL Hx Chronic Kidney Disease: No - ENDOCRINE/METABOLIC Hx Endocrine Disorders: No - HEMATOLOGICAL/ONCOLOGICAL Hx Blood Disorders: No - INTEGUMENTARY Hx Dermatological Problems: No - MUSCULOSKELETAL/RHEUMATOLOGICAL Hx Musculoskeletal Disorders: No Hx Falls: Yes - GASTROINTESTINAL Hx Gastrointestinal Disorders: Yes Other/Comment: cholecystectomy - GENITOURINARY/GYNECOLOGICAL Hx Genitourinary Disorders: No - PSYCHIATRIC Hx Psychophysiologic Disorder: Yes Hx Anxiety: Yes Hx Bipolar Disorder: Yes Hx Depression: Yes Hx Substance Use: No - SURGICAL HISTORY Hx Surgeries: Yes Hx Appendectomy: Yes Hx Cholecystectomy: Yes Other/Comment: with Trach - ANESTHESIA Hx Anesthesia: Yes Hx Anesthesia Reactions: No Hx Malignant Hyperthermia: No Meds Allergies/Adverse Reactions: Allergies Allergy/AdvReac Type Severity Reaction Status Date / Time aspirin Allergy ANAPHYLAXIS Verified 04/26/17 22:40 ceftriaxone sodium Allergy ANAPHYLAXIS Verified 04/26/17 22:40 [From Rocephin] ibuprofen [From Motrin] Allergy ANAPHYLAXIS Verified 04/26/17 22:40 iodine Allergy ANAPHYLAXIS Verified 04/26/17 22:40 raspberry Allergy ANAPHYLAXIS Verified 04/26/17 22:40 - Medications Medications: Current Medications Albuterol/Ipratropium (Duoneb 3 Mg/0.5 Mg (3 Ml) Ud) 3 ml INH RQ6 [facility] Last Admin: 06/18/17 08:00 Dose: 3 ml Enoxaparin Sodium (Lovenox) 40 mg SC DAILY [facility] Last Admin: 06/18/17 09:23 Dose: 40 mg Gabapentin (Neurontin) 800 mg PO TID [facility] Last Admin: 06/18/17 09:23 Dose: 800 mg Propofol (Diprivan) 1,000 mg in 100 mls @ 3.882 mls/hr IV .Q24H PRN; Protocol; 5 MCG/KG/MIN PRN Reason: TITRATE PER MD ORDER Last Admin: 06/18/17 06:10 Dose: 25 mcg/kg/min, 19.412 mls/hr Meropenem (Merrem Iv 1 Gm Premix) 50 mls @ 100 mls/hr IVPB Q8 SHAYLA PRN Reason: Protocol Last Admin: 06/18/17 05:33 Dose: 100 mls/hr Potassium Phosphate 15 mmole/ (Dextrose) 255 mls @ 42.5 mls/hr IVPB ONCE ONE Stop: 06/18/17 15:48 Last Admin: 06/18/17 10:43 Dose: 42.5 mls/hr Insulin Aspart (Novolog) 0 unit SC Q6H SHAYLA PRN Reason: Protocol Last Admin: 06/18/17 05:26 Dose: Not Given Insulin Glargine (Lantus) 30 unit SC HS [facility] Last Admin: 06/17/17 22:26 Dose: Not Given Lactobacillus Acidophilus (Bacid Acidophilus) 1 cap PO BID [facility] Last Admin: 06/18/17 09:23 Dose: 1 cap Lamotrigine (Lamictal) 100 mg PO Q12H [facility] Last Admin: 06/18/17 08:24 Dose: 100 mg Lorazepam (Ativan) 2 mg PO BID PRN PRN Reason: Anxiety Last Admin: 06/17/17 00:32 Dose: 2 mg Methylprednisolone (Solu-Medrol) 40 mg IVP DAILY [facility] Last Admin: 06/18/17 09:23 Dose: 40 mg Montelukast Sodium (Singulair) 10 mg PO HS [facility] Last Admin: 06/17/17 22:26 Dose: Not Given Nitroglycerin (Nitrostat Sl Tab) 0.4 mg SL Q5M PRN PRN Reason: Pain, Mild (1-3) Last Admin: 06/12/17 22:51 Dose: 0.4 mg Nystatin (Nystop Topical Powder) 1 applic TOP BID [facility] Last Admin: 06/18/17 10:43 Dose: 1 applic Oxycodone/Acetaminophen (Percocet 5/325 Mg Tab) 1 tab PO Q4H PRN PRN Reason: Pain 4-7 Stop: 06/19/17 12:11 Last Admin: 06/17/17 10:02 Dose: 1 tab Pantoprazole Sodium (Protonix Ec Tab) 40 mg PO DAILY [facility] Last Admin: 06/18/17 09:23 Dose: 40 mg Quetiapine Fumarate (Seroquel) 400 mg PO Q12 [facility] Last Admin: 06/18/17 09:23 Dose: 400 mg Sertraline HCl (Zoloft) 100 mg PO Q12H [facility] Last Admin: 06/18/17 08:35 Dose: 100 mg Physical Exam - Constitutional Appears: No Acute Distress, Chronically Ill - Head Exam Head Exam: ATRAUMATIC, NORMOCEPHALIC - Eye Exam Eye Exam: absent: Scleral icterus - ENT Exam ENT Exam: Mucous Membranes Dry - Neck Exam Neck exam: Negative for: Lymphadenopathy - Respiratory Exam Respiratory Exam: Decreased Breath Sounds, Prolonged Expiratory Phase, Rhonchi, Wheezes - Cardiovascular Exam Cardiovascular Exam: REGULAR RHYTHM, +S1, +S2 - GI/Abdominal Exam GI & Abdominal Exam: Diminished Bowel Sounds, Distended, Soft. absent: Tenderness - Rectal Exam Rectal Exam: Deferred - Exam Exam: NORMAL INSPECTION - Extremities Exam Extremities exam: Positive for: pedal edema, pedal pulses present. Negative for : calf tenderness, tenderness - Back Exam Back exam: absent: CVA tenderness (L), CVA tenderness (R) - Neurological Exam Neurological exam: Alert, Altered, CN II-XII Intact, Reflexes Normal - Psychiatric Exam Psychiatric exam: Depressed - Skin Skin Exam: Dry Results - Vital Signs Recent Vital Signs: Last Vital Signs Temp 97.4 F L 06/18/17 08:00 Pulse 100 H 06/18/17 10:31 Resp 22 06/18/17 10:31 BP 114/73 06/18/17 10:31 Pulse Ox 91 L 06/18/17 10:31 - Labs Result Diagrams: 06/18/17 05:24 06/18/17 05:24 Labs: Laboratory Results - last 24 hr 06/17/17 06/17/17 06/17/17 11:15 16:20 20:55 WBC RBC Hgb Hct MCV MCH MCHC RDW Plt Count MPV Neut % (Auto) Lymph % (Auto) [place] % (Auto) Eos % (Auto) Baso % (Auto) Neut # (Auto) Lymph # (Auto) [place] # (Auto) Eos # (Auto) Baso # (Auto) PT INR APTT Puncture Site Rradial pCO2 70 H pO2 70 L HCO3 32.7 H ABG pH 7.35 ABG Total CO2 40.7 H ABG O2 Saturation 96.1 ABG Base Excess 10.1 H Rob Test Pos ABG Potassium 3.8 A-a O2 Difference 128.0 Respiratory Index 1.8 Sodium 143.0 Chloride 105.0 Glucose 159 H Lactate 1.2 Vent Mode Prvc Mechanical Rate 14 FiO2 40.0 Tidal Volume 450 PEEP 5 Potassium Carbon Dioxide Anion Gap BUN Creatinine Est GFR ( Amer) Est GFR (Non-Af Amer) POC Glucose (mg/dL) 164 H 200 H Random Glucose Lactic Acid Calcium Phosphorus Magnesium Total Bilirubin AST ALT Alkaline Phosphatase Troponin I C-React Prot High Sens NT-Pro-B Natriuret Pep Total Protein Albumin Globulin Albumin/Globulin Ratio Procalcitonin Arterial Blood Potassium 3.8 Urine Color Urine Clarity Urine pH Ur Specific [place] Urine Protein Urine Glucose (UA) Urine Ketones Urine Blood Urine Nitrate Urine Bilirubin Urine Urobilinogen Ur Leukocyte Esterase Urine WBC (Auto) Urine RBC (Auto) Ur Squamous Epith Cells Uric Acid Crystals Urine Bacteria 06/17/17 06/17/17 06/17/17 21:16 21:16 21:16 WBC 14.9 H RBC 4.69 Hgb 12.8 Hct 38.6 MCV 82.4 MCH 27.2 MCHC 33.0 RDW 15.5 H Plt Count 157 MPV 8.1 Neut % (Auto) 82.7 H Lymph % (Auto) 10.5 L [place] % (Auto) 6.6 Eos % (Auto) 0.1 Baso % (Auto) 0.1 Neut # (Auto) 12.3 H Lymph # (Auto) 1.6 [place] # (Auto) 1.0 H Eos # (Auto) 0.0 Baso # (Auto) 0.0 PT INR APTT Puncture Site pCO2 pO2 HCO3 ABG pH ABG Total CO2 ABG O2 Saturation ABG Base Excess Rob Test ABG Potassium A-a O2 Difference Respiratory Index Sodium Chloride Glucose Lactate Vent Mode Mechanical Rate FiO2 Tidal Volume PEEP Potassium Carbon Dioxide Anion Gap BUN Creatinine Est GFR ( Amer) Est GFR (Non-Af Amer) POC Glucose (mg/dL) Random Glucose Lactic Acid Calcium Phosphorus Magnesium Total Bilirubin AST ALT Alkaline Phosphatase Troponin I 0.0180 C-React Prot High Sens NT-Pro-B Natriuret Pep 248 Total Protein Albumin Globulin Albumin/Globulin Ratio Procalcitonin < 0.05 L Arterial Blood Potassium Urine Color Urine Clarity Urine pH Ur Specific [place] Urine Protein Urine Glucose (UA) Urine Ketones Urine Blood Urine Nitrate Urine Bilirubin Urine Urobilinogen Ur Leukocyte Esterase Urine WBC (Auto) Urine RBC (Auto) Ur Squamous Epith Cells Uric Acid Crystals Urine Bacteria 06/17/17 06/17/17 06/17/17 21:16 21:29 21:29 WBC RBC Hgb Hct MCV MCH MCHC RDW Plt Count MPV Neut % (Auto) Lymph % (Auto) [place] % (Auto) Eos % (Auto) Baso % (Auto) Neut # (Auto) Lymph # (Auto) [place] # (Auto) Eos # (Auto) Baso # (Auto) PT 11.7 INR 1.0 APTT 30 Puncture Site pCO2 pO2 HCO3 ABG pH ABG Total CO2 ABG O2 Saturation ABG Base Excess Rob Test ABG Potassium A-a O2 Difference Respiratory Index Sodium 140 Chloride 94 L Glucose Lactate Vent Mode Mechanical Rate FiO2 Tidal Volume PEEP Potassium 4.3 Carbon Dioxide 34 H Anion Gap 16 BUN 28 H Creatinine 1.0 Est GFR ( Amer) > 60 Est GFR (Non-Af Amer) 57 POC Glucose (mg/dL) Random Glucose 140 H Lactic Acid Calcium 8.9 Phosphorus 4.1 Magnesium 1.9 Total Bilirubin 0.7 AST 32 ALT 24 Alkaline Phosphatase 91 Troponin I C-React Prot High Sens 14.67 H NT-Pro-B Natriuret Pep Total Protein 8.1 Albumin 3.8 Globulin 4.3 H Albumin/Globulin Ratio 0.9 L Procalcitonin Arterial Blood Potassium Urine Color Urine Clarity Urine pH Ur Specific [place] Urine Protein Urine Glucose (UA) Urine Ketones Urine Blood Urine Nitrate Urine Bilirubin Urine Urobilinogen Ur Leukocyte Esterase Urine WBC (Auto) Urine RBC (Auto) Ur Squamous Epith Cells Uric Acid Crystals Urine Bacteria 06/17/17 06/17/17 06/18/17 22:28 23:46 02:31 WBC RBC Hgb Hct MCV MCH MCHC RDW Plt Count MPV Neut % (Auto) Lymph % (Auto) [place] % (Auto) Eos % (Auto) Baso % (Auto) Neut # (Auto) Lymph # (Auto) [place] # (Auto) Eos # (Auto) Baso # (Auto) PT INR APTT Puncture Site pCO2 pO2 HCO3 ABG pH ABG Total CO2 ABG O2 Saturation ABG Base Excess Rob Test ABG Potassium A-a O2 Difference Respiratory Index Sodium Chloride Glucose Lactate Vent Mode Mechanical Rate FiO2 Tidal Volume PEEP Potassium Carbon Dioxide Anion Gap BUN Creatinine Est GFR ( Amer) Est GFR (Non-Af Amer) POC Glucose (mg/dL) 156 H Random Glucose Lactic Acid 1.5 Calcium Phosphorus Magnesium Total Bilirubin AST ALT Alkaline Phosphatase Troponin I C-React Prot High Sens NT-Pro-B Natriuret Pep Total Protein Albumin Globulin Albumin/Globulin Ratio Procalcitonin Arterial Blood Potassium Urine Color Yellow Urine Clarity Hazy Urine pH 5.0 Ur Specific [place] 1.026 Urine Protein 1+ H Urine Glucose (UA) Normal Urine Ketones Negative Urine Blood 2+ H Urine Nitrate Negative Urine Bilirubin Negative Urine Urobilinogen Normal Ur Leukocyte Esterase Trace Urine WBC (Auto) 3 Urine RBC (Auto) 20 H Ur Squamous Epith Cells 1 Uric Acid Crystals Occ H Urine Bacteria Occ H 06/18/17 06/18/17 06/18/17 04:56 05:24 05:24 WBC 18.7 H RBC 4.70 Hgb 12.6 Hct 38.1 MCV 81.1 MCH 26.9 L MCHC 33.2 RDW 15.3 H Plt Count 163 MPV 8.2 Neut % (Auto) 73.4 Lymph % (Auto) 19.4 L [place] % (Auto) 6.7 Eos % (Auto) 0.3 Baso % (Auto) 0.2 Neut # (Auto) 13.7 H Lymph # (Auto) 3.6 [place] # (Auto) 1.3 H Eos # (Auto) 0.0 Baso # (Auto) 0.0 PT INR APTT Puncture Site pCO2 pO2 HCO3 ABG pH ABG Total CO2 ABG O2 Saturation ABG Base Excess Rob Test ABG Potassium A-a O2 Difference Respiratory Index Sodium 140 Chloride 95 L Glucose Lactate Vent Mode Mechanical Rate FiO2 Tidal Volume PEEP Potassium 3.5 L Carbon Dioxide 33 H Anion Gap 16 BUN 26 H Creatinine 1.0 Est GFR ( Amer) > 60 Est GFR (Non-Af Amer) 57 POC Glucose (mg/dL) 116 H Random Glucose 117 H Lactic Acid Calcium 8.9 Phosphorus 1.7 L Magnesium 1.8 Total Bilirubin 0.7 AST 28 ALT 29 Alkaline Phosphatase 90 Troponin I C-React Prot High Sens NT-Pro-B Natriuret Pep Total Protein 7.7 Albumin 3.6 Globulin 4.1 H Albumin/Globulin Ratio 0.9 L Procalcitonin Arterial Blood Potassium Urine Color Urine Clarity Urine pH Ur Specific [place] Urine Protein Urine Glucose (UA) Urine Ketones Urine Blood Urine Nitrate Urine Bilirubin Urine Urobilinogen Ur Leukocyte Esterase Urine WBC (Auto) Urine RBC (Auto) Ur Squamous Epith Cells Uric Acid Crystals Urine Bacteria 06/18/17 05:40 WBC RBC Hgb Hct MCV MCH MCHC RDW Plt Count MPV Neut % (Auto) Lymph % (Auto) [place] % (Auto) Eos % (Auto) Baso % (Auto) Neut # (Auto) Lymph # (Auto) [place] # (Auto) Eos # (Auto) Baso # (Auto) PT INR APTT Puncture Site R rad pCO2 44 pO2 53 L HCO3 34.6 H ABG pH 7.53 H ABG Total CO2 38.2 H ABG O2 Saturation 93.9 L ABG Base Excess 12.6 H Rob Test Pos ABG Potassium 3.3 L A-a O2 Difference 249.0 Respiratory Index 4.7 Sodium 139.0 Chloride 103.0 Glucose 144 H Lactate 1.1 Vent Mode Prvc Mechanical Rate 22 FiO2 50.0 Tidal Volume 500 PEEP 5 Potassium Carbon Dioxide Anion Gap BUN Creatinine Est GFR ( Amer) Est GFR (Non-Af Amer) POC Glucose (mg/dL) Random Glucose Lactic Acid Calcium Phosphorus Magnesium Total Bilirubin AST ALT Alkaline Phosphatase Troponin I C-React Prot High Sens NT-Pro-B Natriuret Pep Total Protein Albumin Globulin Albumin/Globulin Ratio Procalcitonin Arterial Blood Potassium 3.3 L Urine Color Urine Clarity Urine pH Ur Specific [place] Urine Protein Urine Glucose (UA) Urine Ketones Urine Blood Urine Nitrate Urine Bilirubin Urine Urobilinogen Ur Leukocyte Esterase Urine WBC (Auto) Urine RBC (Auto) Ur Squamous Epith Cells Uric Acid Crystals Urine Bacteria Assessment & Plan (1) COPD exacerbation Status: Acute (2) Chronic congestive heart failure Status: Acute (3) Ketoacidosis in diabetes mellitus Status: Active - Assessment and Plan (Free Text) Assessment: add Vanco to Merrem pending cultures
[2017-06-18] MEDS: Vancomycin 1 gm/NS 200 ml 1 GM/200 ML BAG IVPB SCH ×2 (12:13→22:26)
--- NOTE | 2017-06-18 12:55 | CON ---
DATE: 06/18/2017 REASON FOR CONSULTATION: Obstructive sleep apnea and COPD. HISTORY OF PRESENT ILLNESS: This is a 61-year-old female who has a multiple year history of COPD, CHF, and [place], whose trach came out on the floor. Attempts were made to replace it; however, it was unsuccessful. Therefore, the patient is intubated. The patient cannot give any further history since she is intubated. PAST MEDICAL HISTORY: As noted in the chart by me. MEDICATIONS: As noted in the chart by me. PHYSICAL EXAMINATION: HEAD: Head atraumatic and normocephalic. FACE: Cannot be assessed since the patient is sleeping. CONSTITUTIONAL: Well fed, well nourished. COMMUNICATION: Cannot be assessed as the patient is sleeping. EXTERNAL NOSE AND EARS: No masses. No lesions. No erythema. No edema. INTERNAL NOSE AND EARS: Deviated septum. No masses. No lesions. No erythema. No edema. ORAL CAVITY AND OROPHARYNX: Unable to examine secondary to T tube. No masses. No lesions. No erythema. No edema. LIPS AND GUMS: Unable to examine secondary to T tube. No masses. No lesions. No erythema. No edema. NECK: Supple. Trach site noted. LYMPH NODES: No lymphadenopathy of the neck. THYROID: No thyromegaly. No goiter. ASSESSMENT: 1. Obstructive sleep apnea. 2. Deviated septum. PLAN: We will plan for tracheostomy. Jake Keller MD
--- NOTE | 2017-06-18 13:09 | PN ---
DATE: 06/18/2017 SUBJECTIVE: The patient was transferred to ICU for worsening respiratory problems. Today, she was seen in bed #3, sedated and intubated. Review of her meds done. We will discontinue her psych meds as the patient is sedated. REVIEW OF SYSTEMS: Cannot be assessed due to the patient's current mental status as well as the mental status cannot be fully assessed as the patient is sedated and currently intubated. PHYSICAL EXAMINATION VITAL SIGNS: Temperature is 97.4, pulse rate 96, blood pressure 122/70, respirations 22, oxygen saturation 92. Right now, the patient is currently intubated. IMPRESSION: Schizoaffective bipolar type as well as history of respiratory failure, currently intubated, history of diabetes, history of chronic obstructive pulmonary disease, history of pneumonia, hypertension, chronic back pain, status post tracheostomy. PLAN AND RECOMMENDATIONS: The patient was seen, meds reviewed. We will discontinue all her psych meds for now and monitor the patient. The patient is currently in ICU. Wellington Dejesus MD JUDY
--- NOTE | 2017-06-18 16:37 | CP.PCM.PN ---
Subjective - Date & Time of Evaluation Date of Evaluation: 06/18/17 Time of Evaluation: 09:00 - Subjective Subjective: Patient seen and examined at bedside. Patient intubated and sedated on diprivan. ROS unobtainable due to clinical condition. Assessment and Plan: 1. Possible aspiration pneumonia - Afebrile - malodorous secretions noted in ET - CXR 06/17: consolidative changes in both lung bases R>L, small loculated right pleural effusion - duonebs - solu-medrol q8h - merrem - PICC - blood and sputum culture results pending 2. Tracheostomy complications - Tracheostomy removed, now intubated - Dr. Rivera for Trach placement today 3. COPD Exacerbation - duonebs - nebulizer treatments - solu-medrol q8h 4. CHF exacerbation 5. Metabolic alkalosis - ABG 06/18: 7.53/ 44/53/34.6 - Order Mile to determine if saline-responsive or resistant metabolic alkalosis Objective - Vital Signs/Intake and Output Vital Signs (last 24 hours): Temp Pulse Resp BP Pulse Ox 98.8 F 82 22 123/66 92 L 06/18/17 16:00 06/18/17 16:01 06/18/17 16:01 06/18/17 16:01 06/18/17 16:01 Intake and Output: 06/18/17 06/18/17 06:59 18:59 Intake Total 1444.0 1064.0 Output Total 750 240 Balance 694.0 824.0 - Medications Medications: Current Medications Al Hydrox/Mg Hydrox/Simethicone (Maalox 30 Ml) 30 ml PO TID PRN PRN Reason: Indigestion / Heartburn Albuterol/Ipratropium (Duoneb 3 Mg/0.5 Mg (3 Ml) Ud) 3 ml INH RQ6 [facility] Last Admin: 06/18/17 08:00 Dose: 3 ml Enoxaparin Sodium (Lovenox) 40 mg SC DAILY [facility] Last Admin: 06/18/17 09:23 Dose: 40 mg Gabapentin (Neurontin) 800 mg PO TID [facility] Last Admin: 06/18/17 13:02 Dose: Not Given Propofol (Diprivan) 1,000 mg in 100 mls @ 3.882 mls/hr IV .Q24H PRN; Protocol; 5 MCG/KG/MIN PRN Reason: TITRATE PER MD ORDER Last Admin: 06/18/17 12:14 Dose: 25 mcg/kg/min, 19.412 mls/hr Meropenem (Merrem Iv 1 Gm Premix) 50 mls @ 100 mls/hr IVPB Q8 SHAYLA PRN Reason: Protocol Last Admin: 06/18/17 13:00 Dose: 100 mls/hr Vancomycin/Sodium Chloride (Vancomycin 1 Gm/Ns 200 Ml) 1 gm in 200 mls @ 133 mls/hr IVPB Q12H SHAYLA PRN Reason: Protocol Stop: 06/23/17 11:16 Last Admin: 06/18/17 12:13 Dose: 133 mls/hr Insulin Aspart (Novolog) 0 unit SC Q6H [facility] PRN Reason: Protocol Last Admin: 06/18/17 12:57 Dose: 3 unit Insulin Glargine (Lantus) 30 unit SC [facility] Last Admin: 06/17/17 22:26 Dose: Not Given Lactobacillus Acidophilus (Bacid Acidophilus) 1 cap PO BID [facility] Last Admin: 06/18/17 09:23 Dose: 1 cap Methylprednisolone (Solu-Medrol) 40 mg IVP DAILY [facility] Last Admin: 06/18/17 09:23 Dose: 40 mg Montelukast Sodium (Singulair) 10 mg PO [facility] Last Admin: 06/17/17 22:26 Dose: Not Given Nitroglycerin (Nitrostat Sl Tab) 0.4 mg SL Q5M PRN PRN Reason: Pain, Mild (1-3) Last Admin: 06/12/17 22:51 Dose: 0.4 mg Nystatin (Nystop Topical Powder) 1 applic TOP BID [facility] Last Admin: 06/18/17 10:43 Dose: 1 applic Oxycodone/Acetaminophen (Percocet 5/325 Mg Tab) 1 tab PO Q4H PRN PRN Reason: Pain 4-7 Stop: 06/19/17 12:11 Last Admin: 06/17/17 10:02 Dose: 1 tab Pantoprazole Sodium (Protonix Ec Tab) 40 mg PO DAILY [facility] Last Admin: 06/18/17 09:23 Dose: 40 mg - Labs Labs: 06/18/17 05:24 06/18/17 05:24 PT 11.7 SECONDS (9.7-12.2) 06/17/17 21:16 INR 1.0 06/17/17 21:16 APTT 30 SECONDS (21-34) 06/17/17 21:16
--- NOTE | 2017-06-18 18:16 | CARD ---
APPROVED REPORT EKG Measurement Heart [id number] <Conclusion> Normal sinus rhythm Normal ECG
[2017-06-18] MEDS: (Lantus) Insulin Glargine, Recombinant SC SCH (21:42)
--- NOTE | 2017-06-18 23:41 | CP.PCM.PN ---
Subjective - Date & Time of Evaluation Date of Evaluation: 06/18/17 Time of Evaluation: 19:00 - Subjective Subjective: Pt seen and examined Objective - Vital Signs/Intake and Output Vital Signs (last 24 hours): Temp Pulse Resp BP Pulse Ox 97.4 F L 86 22 114/61 100 06/18/17 20:00 06/18/17 23:09 06/18/17 23:09 06/18/17 23:23 06/18/17 23:09 Intake and Output: 06/18/17 06/19/17 18:59 06:59 Intake Total 1202.8 407.0 Output Total 241 Balance 961.8 407.0 - Medications Medications: Current Medications Al Hydrox/Mg Hydrox/Simethicone (Maalox 30 Ml) 30 ml PO TID PRN PRN Reason: Indigestion / Heartburn Albuterol/Ipratropium (Duoneb 3 Mg/0.5 Mg (3 Ml) Ud) 3 ml INH RQ6 SHAYLA Last Admin: 06/18/17 20:36 Dose: 3 ml Enoxaparin Sodium (Lovenox) 40 mg SC DAILY [facility] Last Admin: 06/18/17 09:23 Dose: 40 mg Gabapentin (Neurontin) 800 mg PO TID SHAYLA Last Admin: 06/18/17 17:44 Dose: Not Given Propofol (Diprivan) 1,000 mg in 100 mls @ 3.882 mls/hr IV .Q24H PRN; Protocol; 5 MCG/KG/MIN PRN Reason: TITRATE PER MD ORDER Last Admin: 06/18/17 18:27 Dose: 25 mcg/kg/min, 19.412 mls/hr Meropenem (Merrem Iv 1 Gm Premix) 50 mls @ 100 mls/hr IVPB Q8 SHAYLA PRN Reason: Protocol Last Admin: 06/18/17 21:42 Dose: 100 mls/hr Vancomycin/Sodium Chloride (Vancomycin 1 Gm/Ns 200 Ml) 1 gm in 200 mls @ 133 mls/hr IVPB Q12H SHAYLA PRN Reason: Protocol Stop: 06/23/17 11:16 Last Admin: 06/18/17 22:26 Dose: 133 mls/hr Insulin Aspart (Novolog) 0 unit SC Q6H SHAYLA PRN Reason: Protocol Last Admin: 04/23/18 23:34 Dose: 3 unit Insulin Glargine (Lantus) 30 unit SC [facility] Last Admin: 06/18/17 21:42 Dose: 30 units Lactobacillus Acidophilus (Bacid Acidophilus) 1 cap PO BID [facility] Last Admin: 06/18/17 17:44 Dose: Not Given Methylprednisolone (Solu-Medrol) 40 mg IVP DAILY [facility] Last Admin: 06/18/17 09:23 Dose: 40 mg Montelukast Sodium (Singulair) 10 mg PO [facility] Last Admin: 06/18/17 21:42 Dose: 10 mg Nitroglycerin (Nitrostat Sl Tab) 0.4 mg SL Q5M PRN PRN Reason: Pain, Mild (1-3) Last Admin: 06/12/17 22:51 Dose: 0.4 mg Nystatin (Nystop Topical Powder) 1 applic TOP BID [facility] Last Admin: 06/18/17 18:27 Dose: 1 applic Oxycodone/Acetaminophen (Percocet 5/325 Mg Tab) 1 tab PO Q4H PRN PRN Reason: Pain 4-7 Stop: 06/19/17 12:11 Last Admin: 06/17/17 10:02 Dose: 1 tab Pantoprazole Sodium (Protonix Ec Tab) 40 mg PO DAILY [facility] Last Admin: 06/18/17 09:23 Dose: 40 mg - Labs Labs: 06/18/17 05:24 06/18/17 05:24 PT 11.7 SECONDS (9.7-12.2) 06/17/17 21:16 INR 1.0 06/17/17 21:16 APTT 30 SECONDS (21-34) 06/17/17 21:16
[2017-06-19] MEDS: Propofol 10 mg/ml 1,000 MG/100 ML VIAL IV PRN ×2 (01:01→05:35)
[2017-06-19] MEDS: Albuterol-Ipratrop 3 mg / 0.5 (3 ml) UD INH SCH ×4 (02:59→19:59)
[2017-06-19] MEDS: Meropenem IV 1 gm in NS 50 ML IVPB SCH ×3 (05:30→21:14)
[2017-06-19] MEDS: (Novolog) Insulin Aspart, Recombinant 100 u/ml 10 ml vial SC SCH ×3 (05:31→17:28)
--- NOTE | 2017-06-19 05:56 | OP ---
PROCEDURE DATE: 06/12/2017 PREOPERATIVE DIAGNOSIS: Respiratory failure. POSTOPERATIVE DIAGNOSIS: Respiratory failure. PROCEDURE PERFORMED: Tracheostomy. SURGEON: Cali Rivera MD ANESTHESIA: General. BLOOD LOSS: 5 mL. POSTOPERATIVE CONDITION: Stable. INDICATIONS FOR SURGERY: This is a 61-year-old female who presented with airway obstruction and an occluded tracheostomy. Tracheostomy was removed, and she was intubated. Today, she is being brought to the operating room for placement of a new tracheostomy. DESCRIPTION OF PROCEDURE: The patient was taken to the operating room, left on the ICU bed. A roll was placed under her shoulders with the neck extended, and the neck was prepped and draped. The previous tracheostomy site was explored bluntly using a tonsil clamp. The endotracheal tube could be felt at the end of the tonsil clamp. The endotracheal tube was then removed and a new tracheostomy was inserted through the previous site. There was good end-tidal CO2 and the balloon was inflated. The patient tolerated the procedure well. Returned to recovery room in stable condition. Cali Rivera MD
[2017-06-19 06:12] LABS: BASO # 0.1 K/uL (0.0-0.2); BASO % 0.3 % (0.0-2.0); EOS # 0.1 K/uL (0.0-0.7); EOS % 0.8 % (0.0-4.0); HEMOGLOBIN 12.4 g/dL (11.0-16.0); LYMPH # 2.7 K/uL (1.0-4.3); LYMPH % 15.9 % (20.0-40.0); MEAN CELL VOLUME 80.9 fL (81.0-99.0); MEAN CORPUSCULAR HGB CONC 33.4 g/dL (33.0-37.0); MEAN PLATELET VOLUME 8.7 fL (7.2-11.7); MONO # 0.9 K/uL (0.0-0.8); MONO % 5.2 % (0.0-10.0); NEUT # 13.3 K/uL (1.8-7.0); NEUT % 77.8 % (50.0-75.0); NRBC % 0.2 % (0.0-2.0); RBC 4.57 Mil/uL (3.80-5.20); RED CELL DISTRIBUTION WIDTH 15.3 % (11.5-14.5); WHITE BLOOD COUNT 17.1 K/uL (4.8-10.8)
[2017-06-19 06:31] LABS: ALB/GLOB RATIO 0.9 (1.0-2.1); ALBUMIN 3.4 g/dL (3.5-5.0); ALT/SGPT 14 U/L (9-52); AST/SGOT 21 U/L (14-36); BLOOD UREA NITROGEN 24 mg/dL (7-17); CALCIUM 8.6 mg/dl (8.6-10.4); GFR AFRICAN-AMERICAN > 60; GFR NON-AFRICAN AMERICAN > 60
--- NOTE | 2017-06-19 08:22 | CP.CCUPN ---
<Pacheco Lucero - Last Filed: 06/19/17 10:41> CCU Subjective - Physician Review Subjective (Free Text): 06/18/17 08:37 Patient seen and examined. Patient is intubated and sedated on Diprivan at this time. 06/19/17 08:16 Patient seen and examined. Patient is non-verbal due to trach but is motioning for general abdominal pain. CCU Objective - Vital Signs / Intake & Output Vital Signs (Last 4 hours): Vital Signs Pulse Resp BP Pulse Ox 06/19/17 07:08 82 22 112/76 97 06/19/17 07:00 84 22 96 06/19/17 06:53 83 22 110/67 96 06/19/17 06:38 83 22 104/61 93 L 06/19/17 06:23 83 22 104/62 06/19/17 06:08 82 22 113/72 06/19/17 06:00 78 12 93 L 06/19/17 05:53 86 22 125/62 90 L 06/19/17 05:38 84 22 112/51 L 90 L 06/19/17 05:23 83 23 114/60 92 L 06/19/17 05:08 83 22 113/67 92 L 06/19/17 05:00 83 22 94 L 06/19/17 04:53 82 22 119/65 93 L 06/19/17 04:38 84 22 114/66 93 L 06/19/17 04:23 84 22 112/65 92 L Intake and Output (Last 8hrs): Intake & Output 06/18/17 06/19/17 06/19/17 22:59 06:59 14:59 Intake Total 365.2 894.4 41.6 Output Total 1 300 Balance 364.2 594.4 41.6 Weight 269 lb Intake: IV 100 217 Intake, IV Amount 205.2 397.4 11.6 Left Forearm 0 0 Right Medial Port Femoral 155.2 147.4 11.6 Right Proximal Port 50 250 Femoral Tube Feeding 180 30 Other 60 100 Output: Urine 1 300 Urine, Voided 1 300 Other: # Bowel Movements 0 - Physical Exam Head: Positive for: Atraumatic, Normocephalic Pupils: Positive for: PERRL Extroacular Muscles: Positive for: EOMI Conjunctiva: Positive for: Normal Mouth: Positive for: Moist Mucous Membranes Nose (External): Positive for: Other (NGT in place) Neck: Positive for: Trachea Midline Respiratory/Chest: Positive for: Clear to Auscultation. Negative for: Wheezes, Rales, Rhonchi Cardiovascular: Positive for: Regular Rate and Rhythm, Normal S1, S2 Abdomen: Positive for: Normal Bowel Sounds. Negative for: Tenderness Upper Extremity: Positive for: Normal Inspection Lower Extremity: Positive for: Edema (non-pitting) Skin: Positive for: Warm, Dry - Medications Active Medications: Active Medications Generic Name Dose Route Start Last Admin Trade Name Freq PRN Reason Stop Dose Admin Al Hydrox/Mg Hydrox/Simethicone 30 ml 06/18/17 16:28 Maalox 30 Ml PO TID PRN Indigestion / Heartburn Albuterol/Ipratropium 3 ml 06/13/17 02:00 06/19/17 07:46 Duoneb 3 Mg/0.5 Mg (3 Ml) Ud INH 3 ml RQ6 SHAYLA Administration Enoxaparin Sodium 40 mg 06/13/17 10:00 06/18/17 09:23 Lovenox SC 40 mg DAILY SHAYLA Administration Gabapentin 800 mg 06/13/17 10:00 06/18/17 17:44 Neurontin PO Not Given TID SHAYLA Propofol 1,000 mg in 100 mls @ 3.882 mls/hr 06/17/17 20:21 06/19/17 06:37 Diprivan IV 15 mcg/kg/min .Q24H PRN 11.647 mls/hr TITRATE PER MD ORDER Titration Protocol 5 MCG/KG/MIN Meropenem 50 mls @ 100 mls/hr 06/17/17 22:00 06/19/17 05:30 Merrem Iv 1 Gm Premix IVPB 100 mls/hr Q8 SHAYLA Administration Protocol Vancomycin/Sodium Chloride 1 gm in 200 mls @ 133 mls/hr 06/18/17 11:15 22:26 Vancomycin 1 Gm/Ns 200 Ml IVPB 06/23/17 11:16 133 mls/hr Q12H SHAYLA Administration Protocol Insulin Aspart 0 unit 06/18/17 00:00 06/19/17 05:31 Novolog SC 2 unit Q6H SHAYLA Administration Protocol Insulin Glargine 30 unit 06/12/17 22:00 06/18/17 21:42 Lantus SC 30 units HS SHAYLA Administration Lactobacillus Acidophilus 1 cap 06/13/17 10:00 06/18/17 17:44 Bacid Acidophilus PO Not Given BID SHAYLA Methylprednisolone 40 mg 06/17/17 10:00 06/18/17 09:23 Solu-Medrol IVP 40 mg DAILY SHAYLA Administration Montelukast Sodium 10 mg 06/12/17 22:00 06/18/17 21:42 Singulair PO 10 mg HS SHAYLA Administration Nitroglycerin 0.4 mg 06/12/17 22:12 06/12/17 22:51 Nitrostat Sl Tab SL 0.4 mg Q5M PRN Administration Pain, Mild (1-3) Nystatin 1 applic 06/13/17 10:00 06/18/17 18:27 Nystop Topical Powder TOP 1 applic BID SHAYLA Administration Oxycodone/Acetaminophen 1 tab 06/16/17 12:10 06/17/17 10:02 Percocet 5/325 Mg Tab PO 06/19/17 12:11 1 tab Q4H PRN Administration Pain 4-7 Pantoprazole Sodium 40 mg 06/16/17 10:00 06/18/17 09:23 Protonix Ec Tab PO 40 mg DAILY SHAYLA Administration Potassium Chloride 40 meq 06/19/17 08:30 Potassium Chloride Oral Soln NG 06/19/17 08:31 ONCE ONE - Patient Studies Lab Studies: Microbiology Studies 06/17/17 21:30 Blood Culture - Preliminary Blood-Venous NO GROWTH AFTER 24 HOURS 06/17/17 21:30 Blood Culture - Preliminary Blood-Venous NO GROWTH AFTER 24 HOURS 06/17/17 20:55 Gram Stain - Final Trachasp Lab Studies 06/19/17 06/19/17 06/19/17 Range/Units 06:07 06:06 05:28 WBC 17.1 H (4.8-10.8) K/uL RBC 4.57 (3.80-5.20) Mil/uL Hgb 12.4 (11.0-16.0) g/dL Hct 37.0 (34.0-47.0) % MCV 80.9 L (81.0-99.0) fL MCH 27.0 (27.0-31.0) pg MCHC 33.4 (33.0-37.0) g/dL RDW 15.3 H (11.5-14.5) % Plt Count 152 (130-400) K/uL MPV 8.7 (7.2-11.7) fL Neut % (Auto) 77.8 H (50.0-75.0) % Lymph % (Auto) 15.9 L (20.0-40.0) % [place] % (Auto) 5.2 (0.0-10.0) % Eos % (Auto) 0.8 (0.0-4.0) % Baso % (Auto) 0.3 (0.0-2.0) % Neut # (Auto) 13.3 H (1.8-7.0) K/uL Lymph # (Auto) 2.7 (1.0-4.3) K/uL [place] # (Auto) 0.9 H (0.0-0.8) K/uL Eos # (Auto) 0.1 (0.0-0.7) K/uL Baso # (Auto) 0.1 (0.0-0.2) K/uL Sodium 141 (132-148) mmol/L Potassium 3.2 L (3.6-5.2) mmol/L Chloride 100 (98-107) mmol/L Carbon Dioxide 29 (22-30) mmol/L Anion Gap 16 (10-20) BUN 24 H (7-17) mg/dL Creatinine 0.9 (0.7-1.2) mg/dL Est GFR ( Amer) > 60 Est GFR (Non-Af Amer) > 60 POC Glucose (mg/dL) 159 H (65-110) mg/dL Random Glucose 158 H (65-105) mg/dL Calcium 8.6 (8.6-10.4) mg/dl Phosphorus 2.7 (2.5-4.5) mg/dL Magnesium 2.0 (1.6-2.3) mg/dL Total Bilirubin 1.0 (0.2-1.3) mg/dL AST 21 (14-36) U/L ALT 14 (9-52) U/L Alkaline Phosphatase 98 (38-126) U/L Total Protein 7.3 (6.3-8.3) g/dL Albumin 3.4 L (3.5-5.0) g/dL Globulin 3.9 (2.2-3.9) gm/dL Albumin/Globulin Ratio 0.9 L (1.0-2.1) 06/18/17 06/18/17 06/18/17 Range/Units 23:28 17:36 11:14 WBC (4.8-10.8) K/uL RBC (3.80-5.20) Mil/uL Hgb (11.0-16.0) g/dL Hct (34.0-47.0) % MCV (81.0-99.0) fL MCH (27.0-31.0) pg MCHC (33.0-37.0) g/dL RDW (11.5-14.5) % Plt Count (130-400) K/uL MPV (7.2-11.7) fL Neut % (Auto) (50.0-75.0) % Lymph % (Auto) (20.0-40.0) % [place] % (Auto) (0.0-10.0) % Eos % (Auto) (0.0-4.0) % Baso % (Auto) (0.0-2.0) % Neut # (Auto) (1.8-7.0) K/uL Lymph # (Auto) (1.0-4.3) K/uL [place] # (Auto) (0.0-0.8) K/uL Eos # (Auto) (0.0-0.7) K/uL Baso # (Auto) (0.0-0.2) K/uL Sodium (132-148) mmol/L Potassium (3.6-5.2) mmol/L Chloride (98-107) mmol/L Carbon Dioxide (22-30) mmol/L Anion Gap (10-20) BUN (7-17) mg/dL Creatinine (0.7-1.2) mg/dL Est GFR ( Amer) Est GFR (Non-Af Amer) POC Glucose (mg/dL) 216 H 256 H 222 H (65-110) mg/dL Random Glucose (65-105) mg/dL Calcium (8.6-10.4) mg/dl Phosphorus (2.5-4.5) mg/dL Magnesium (1.6-2.3) mg/dL Total Bilirubin (0.2-1.3) mg/dL AST (14-36) U/L ALT (9-52) U/L Alkaline Phosphatase (38-126) U/L Total Protein (6.3-8.3) g/dL Albumin (3.5-5.0) g/dL Globulin (2.2-3.9) gm/dL Albumin/Globulin Ratio (1.0-2.1) Laboratory Results - last 24 hr 06/18/17 06/18/17 06/18/17 11:14 17:36 23:28 WBC RBC Hgb Hct MCV MCH MCHC RDW Plt Count MPV Neut % (Auto) Lymph % (Auto) [place] % (Auto) Eos % (Auto) Baso % (Auto) Neut # (Auto) Lymph # (Auto) [place] # (Auto) Eos # (Auto) Baso # (Auto) Sodium Potassium Chloride Carbon Dioxide Anion Gap BUN Creatinine Est GFR ( Amer) Est GFR (Non-Af Amer) POC Glucose (mg/dL) 222 H 256 H 216 H Random Glucose Calcium Phosphorus Magnesium Total Bilirubin AST ALT Alkaline Phosphatase Total Protein Albumin Globulin Albumin/Globulin Ratio 06/19/17 06/19/17 06/19/17 05:28 06:06 06:07 WBC 17.1 H RBC 4.57 Hgb 12.4 Hct 37.0 MCV 80.9 L MCH 27.0 MCHC 33.4 RDW 15.3 H Plt Count 152 MPV 8.7 Neut % (Auto) 77.8 H Lymph % (Auto) 15.9 L [place] % (Auto) 5.2 Eos % (Auto) 0.8 Baso % (Auto) 0.3 Neut # (Auto) 13.3 H Lymph # (Auto) 2.7 [place] # (Auto) 0.9 H Eos # (Auto) 0.1 Baso # (Auto) 0.1 Sodium 141 Potassium 3.2 L Chloride 100 Carbon Dioxide 29 Anion Gap 16 BUN 24 H Creatinine 0.9 Est GFR ( Amer) > 60 Est GFR (Non-Af Amer) > 60 POC Glucose (mg/dL) 159 H Random Glucose 158 H Calcium 8.6 Phosphorus 2.7 Magnesium 2.0 Total Bilirubin 1.0 AST 21 ALT 14 Alkaline Phosphatase 98 Total Protein 7.3 Albumin 3.4 L Globulin 3.9 Albumin/Globulin Ratio 0.9 L Fingerstick Blood Sugar Results: 256 Critical Care Progress Note - Nutrition Nutrition: Nutrition Category Date Time Status NPO Diet [DIET] Diets 06/18/17 Breakfast Active Assessment/Plan - Assessment and Plan (Free Text) Assessment: This is a 61 year old female with PMHx COPD, DM , schizoaffective disorder ( bipolar type) who presented for shortness of breath. [employer] called for shortness of breath. Patient intubated due to shortness of breath while on trach likely due to thick mucus plug. Tracheostomy was removed. Patient intubated and transferred to ICU. On 06/18/17, patient had a new trach put in by surgery. Neuro Awake, alert but non-verbal due to trach Cardio No active issues Pulm Assessment: Respiratory failure, tracheostomy Duoneb Q6H Singulair 10 mg HS Solumedrol 40 mg IV daily Plan to wean off of ventilator support GI Tube feeds Protonix 40 mg PO daily Endocrine Assessment: DM 2 Novolog ISS Q6H Lantus 30 units SC HS Gabapentin 800 mg TID Infectious Disease Merrem Q8H Vancomycin 1 gm IV Q12H Psych Assessment: Schizoaffective disorder bipolar type Psych on consult Per Dr. Lopez, the following medications are held at this time due to intubation/sedation: Lamictal 100 Q12, Zoloft 100 mg Q12, Seroquel 400 mg Q12 Prophylaxis Lovenox 40 mg SC daily Protonix 40 mg PO daily Discussed with Dr. Rosado <Rodo Rosado - Last Filed: 06/19/17 14:42> CCU Objective - Vital Signs / Intake & Output Vital Signs (Last 4 hours): Vital Signs Temp Pulse Resp BP Pulse Ox 06/19/17 13:39 93 H 22 123/67 97 06/19/17 12:39 90 24 115/67 96 06/19/17 12:00 98.2 F 06/19/17 11:40 94 H 23 107/66 94 L Intake and Output (Last 8hrs): Intake & Output 06/18/17 06/19/17 06/19/17 22:59 06:59 14:59 Intake Total 565.2 894.4 524.8 Output Total 1 300 100 Balance 564.2 594.4 424.8 Weight 269 lb Intake: IV 300 217 Intake, IV Amount 205.2 397.4 284.8 Left Forearm 0 0 250 Right Medial Port Femoral 155.2 147.4 34.8 Right Proximal Port 50 250 Femoral Tube Feeding 180 240 Other 60 100 Output: Urine 1 300 100 Urine, Voided 1 300 100 Other: # Bowel Movements 0 - Medications Active Medications: Active Medications Generic Name Dose Route Start Last Admin Trade Name Freq PRN Reason Stop Dose Admin Al Hydrox/Mg Hydrox/Simethicone 30 ml 06/18/17 16:28 06/19/17 14:03 Maalox 30 Ml PO 30 ml TID PRN Administration Indigestion / Heartburn Albuterol/Ipratropium 3 ml 06/13/17 02:00 06/19/17 14:01 Duoneb 3 Mg/0.5 Mg (3 Ml) Ud INH 3 ml RQ6 SHAYLA Administration Enoxaparin Sodium 40 mg 06/13/17 10:00 06/19/17 09:51 Lovenox SC 40 mg DAILY SHAYLA Administration Gabapentin 800 mg 06/13/17 10:00 06/19/17 13:15 Neurontin PO 800 mg TID SHAYLA Administration Meropenem 50 mls @ 100 mls/hr 06/17/17 22:00 06/19/17 13:15 Merrem Iv 1 Gm Premix IVPB 100 mls/hr Q8 SHAYLA Administration Protocol Vancomycin/Sodium Chloride 1 gm in 200 mls @ 133 mls/hr 06/18/17 11:15 11:22 Vancomycin 1 Gm/Ns 200 Ml IVPB 06/23/17 11:16 133 mls/hr Q12H SHAYLA Administration Protocol Insulin Aspart 0 unit 06/18/17 00:00 06/19/17 12:28 Novolog SC 6 unit Q6H SHAYLA Administration Protocol Insulin Glargine 30 unit 06/12/17 22:00 06/18/17 21:42 Lantus SC 30 units HS SHAYLA Administration Lactobacillus Acidophilus 1 cap 06/13/17 10:00 06/19/17 09:51 Bacid Acidophilus PO 1 cap BID SHAYLA Administration Methylprednisolone 40 mg 06/17/17 10:00 06/19/17 09:53 Solu-Medrol IVP 40 mg DAILY SHAYLA Administration Montelukast Sodium 10 mg 06/12/17 22:00 06/18/17 21:42 Singulair PO 10 mg HS SHAYLA Administration Nitroglycerin 0.4 mg 06/12/17 22:12 06/12/17 22:51 Nitrostat Sl Tab SL 0.4 mg Q5M PRN Administration Pain, Mild (1-3) Nystatin 1 applic 06/13/17 10:00 06/19/17 09:52 Nystop Topical Powder TOP 1 applic BID SHAYLA Administration Pantoprazole Sodium 40 mg 06/19/17 10:45 06/19/17 11:22 Protonix Susp PO 40 mg 0600 SHAYLA Administration - Patient Studies Lab Studies: Microbiology Studies 06/17/17 20:55 Urine Culture - Final Urine,Sweet No Growth (<1,000 CFU/ML) 06/17/17 20:55 Gram Stain - Final Trachasp Sputum Culture - Preliminary Gram Negative Parrish 06/17/17 21:30 Blood Culture - Preliminary Blood-Venous NO GROWTH AFTER 24 HOURS 06/17/17 21:30 Blood Culture - Preliminary Blood-Venous NO GROWTH AFTER 24 HOURS Lab Studies 06/19/17 06/19/17 06/19/17 Range/Units 11:46 06:07 06:06 WBC 17.1 H (4.8-10.8) K/uL RBC 4.57 (3.80-5.20) Mil/uL Hgb 12.4 (11.0-16.0) g/dL Hct 37.0 (34.0-47.0) % MCV 80.9 L (81.0-99.0) fL MCH 27.0 (27.0-31.0) pg MCHC 33.4 (33.0-37.0) g/dL RDW 15.3 H (11.5-14.5) % Plt Count 152 (130-400) K/uL MPV 8.7 (7.2-11.7) fL Neut % (Auto) 77.8 H (50.0-75.0) % Lymph % (Auto) 15.9 L (20.0-40.0) % [place] % (Auto) 5.2 (0.0-10.0) % Eos % (Auto) 0.8 (0.0-4.0) % Baso % (Auto) 0.3 (0.0-2.0) % Neut # (Auto) 13.3 H (1.8-7.0) K/uL Lymph # (Auto) 2.7 (1.0-4.3) K/uL [place] # (Auto) 0.9 H (0.0-0.8) K/uL Eos # (Auto) 0.1 (0.0-0.7) K/uL Baso # (Auto) 0.1 (0.0-0.2) K/uL Sodium 141 (132-148) mmol/L Potassium 3.2 L (3.6-5.2) mmol/L Chloride 100 (98-107) mmol/L Carbon Dioxide 29 (22-30) mmol/L Anion Gap 16 (10-20) BUN 24 H (7-17) mg/dL Creatinine 0.9 (0.7-1.2) mg/dL Est GFR ( Amer) > 60 Est GFR (Non-Af Amer) > 60 POC Glucose (mg/dL) 332 H (65-110) mg/dL Random Glucose 158 H (65-105) mg/dL Calcium 8.6 (8.6-10.4) mg/dl Phosphorus 2.7 (2.5-4.5) mg/dL Magnesium 2.0 (1.6-2.3) mg/dL Total Bilirubin 1.0 (0.2-1.3) mg/dL AST 21 (14-36) U/L ALT 14 (9-52) U/L Alkaline Phosphatase 98 (38-126) U/L Total Protein 7.3 (6.3-8.3) g/dL Albumin 3.4 L (3.5-5.0) g/dL Globulin 3.9 (2.2-3.9) gm/dL Albumin/Globulin Ratio 0.9 L (1.0-2.1) 06/19/17 06/18/17 06/18/17 Range/Units 05:28 23:28 17:36 WBC (4.8-10.8) K/uL RBC (3.80-5.20) Mil/uL Hgb (11.0-16.0) g/dL Hct (34.0-47.0) % MCV (81.0-99.0) fL MCH (27.0-31.0) pg MCHC (33.0-37.0) g/dL RDW (11.5-14.5) % Plt Count (130-400) K/uL MPV (7.2-11.7) fL Neut % (Auto) (50.0-75.0) % Lymph % (Auto) (20.0-40.0) % [place] % (Auto) (0.0-10.0) % Eos % (Auto) (0.0-4.0) % Baso % (Auto) (0.0-2.0) % Neut # (Auto) (1.8-7.0) K/uL Lymph # (Auto) (1.0-4.3) K/uL [place] # (Auto) (0.0-0.8) K/uL Eos # (Auto) (0.0-0.7) K/uL Baso # (Auto) (0.0-0.2) K/uL Sodium (132-148) mmol/L Potassium (3.6-5.2) mmol/L Chloride (98-107) mmol/L Carbon Dioxide (22-30) mmol/L Anion Gap (10-20) BUN (7-17) mg/dL Creatinine (0.7-1.2) mg/dL Est GFR ( Amer) Est GFR (Non-Af Amer) POC Glucose (mg/dL) 159 H 216 H 256 H (65-110) mg/dL Random Glucose (65-105) mg/dL Calcium (8.6-10.4) mg/dl Phosphorus (2.5-4.5) mg/dL Magnesium (1.6-2.3) mg/dL Total Bilirubin (0.2-1.3) mg/dL AST (14-36) U/L ALT (9-52) U/L Alkaline Phosphatase (38-126) U/L Total Protein (6.3-8.3) g/dL Albumin (3.5-5.0) g/dL Globulin (2.2-3.9) gm/dL Albumin/Globulin Ratio (1.0-2.1) Laboratory Results - last 24 hr 06/18/17 06/18/17 06/19/17 17:36 23:28 05:28 WBC RBC Hgb Hct MCV MCH MCHC RDW Plt Count MPV Neut % (Auto) Lymph % (Auto) [place] % (Auto) Eos % (Auto) Baso % (Auto) Neut # (Auto) Lymph # (Auto) [place] # (Auto) Eos # (Auto) Baso # (Auto) Sodium Potassium Chloride Carbon Dioxide Anion Gap BUN Creatinine Est GFR ( Amer) Est GFR (Non-Af Amer) POC Glucose (mg/dL) 256 H 216 H 159 H Random Glucose Calcium Phosphorus Magnesium Total Bilirubin AST ALT Alkaline Phosphatase Total Protein Albumin Globulin Albumin/Globulin Ratio 06/19/17 06/19/17 06/19/17 06:06 06:07 11:46 WBC 17.1 H RBC 4.57 Hgb 12.4 Hct 37.0 MCV 80.9 L MCH 27.0 MCHC 33.4 RDW 15.3 H Plt Count 152 MPV 8.7 Neut % (Auto) 77.8 H Lymph % (Auto) 15.9 L [place] % (Auto) 5.2 Eos % (Auto) 0.8 Baso % (Auto) 0.3 Neut # (Auto) 13.3 H Lymph # (Auto) 2.7 [place] # (Auto) 0.9 H Eos # (Auto) 0.1 Baso # (Auto) 0.1 Sodium 141 Potassium 3.2 L Chloride 100 Carbon Dioxide 29 Anion Gap 16 BUN 24 H Creatinine 0.9 Est GFR ( Amer) > 60 Est GFR (Non-Af Amer) > 60 POC Glucose (mg/dL) 332 H Random Glucose 158 H Calcium 8.6 Phosphorus 2.7 Magnesium 2.0 Total Bilirubin 1.0 AST 21 ALT 14 Alkaline Phosphatase 98 Total Protein 7.3 Albumin 3.4 L Globulin 3.9 Albumin/Globulin Ratio 0.9 L Critical Care Progress Note - Nutrition Nutrition: Nutrition Category Date Time Status NPO Diet [DIET] Diets 06/18/17 Breakfast Active Attending/Attestation - Attestation I have personally seen and examined this patient.: Yes I have fully participated in the care of the patient.: Yes I have reviewed all pertinent clinical information: Yes Notes (Text): 06/19/17 14:39 patient seen and examined in the intensive care unit. Case discussed with house staff in the morning rounds. Status post trach placement last night Tolerating CPAP Trach collar On antibiotics Continue steroids and nebulizer treatm
[2017-06-19] MEDS: Aluminum Hydroxide/Magnesium Hydroxide Susp (30 mL) PO PRN ×2 (08:24→14:03)
[2017-06-19] MEDS ORDERED: Potassium Chloride 20 mEq/15 ml LIQ UD NG ONE (08:30)
[2017-06-19] MEDS: Enoxaparin 40 mg Syringe SC SCH (09:51)
[2017-06-19] MEDS: Lactobacillus Acidophilus 500 MU Cap PO SCH ×2 (09:51→17:28)
[2017-06-19] MEDS: Oxycodone/Acetaminophen 5/325 mg Tab PO PRN ×2 (09:52→21:15)
[2017-06-19] MEDS: MethylPREDNISolone 40 mg Vial IVP SCH (09:53)
[2017-06-19] MEDS: Pantoprazole 40 mg EC Tab PO SCH (10:02)
--- NOTE | 2017-06-19 10:34 | CP.PCM.PN ---
Subjective - Date & Time of Evaluation Date of Evaluation: 06/19/17 Time of Evaluation: 08:00 - Subjective Subjective: resting comfortably in icu on vent via ETT nad afeb sputum- gram neg rods- Hx of ESBL sputum Objective - Vital Signs/Intake and Output Vital Signs (last 24 hours): Temp Pulse Resp BP Pulse Ox 99.1 F 95 H 21 108/57 L 94 L 06/19/17 08:00 06/19/17 09:38 06/19/17 09:38 06/19/17 09:38 06/19/17 09:38 Intake and Output: 06/19/17 06/19/17 06:59 18:59 Intake Total 1282.0 83.2 Output Total 300 100 Balance 982.0 -16.8 - Medications Medications: Current Medications Al Hydrox/Mg Hydrox/Simethicone (Maalox 30 Ml) 30 ml PO TID PRN PRN Reason: Indigestion / Heartburn Last Admin: 06/19/17 08:24 Dose: 30 ml Albuterol/Ipratropium (Duoneb 3 Mg/0.5 Mg (3 Ml) Ud) 3 ml INH RQ6 SHAYLA Last Admin: 06/19/17 07:46 Dose: 3 ml Enoxaparin Sodium (Lovenox) 40 mg SC DAILY SHAYLA Last Admin: 06/19/17 09:51 Dose: 40 mg Gabapentin (Neurontin) 800 mg PO TID SHAYLA Last Admin: 06/19/17 09:52 Dose: 800 mg Meropenem (Merrem Iv 1 Gm Premix) 50 mls @ 100 mls/hr IVPB Q8 SHAYLA PRN Reason: Protocol Last Admin: 06/19/17 05:30 Dose: 100 mls/hr Vancomycin/Sodium Chloride (Vancomycin 1 Gm/Ns 200 Ml) 1 gm in 200 mls @ 133 mls/hr IVPB Q12H SHAYLA PRN Reason: Protocol Stop: 06/23/17 11:16 Last Admin: 06/18/17 22:26 Dose: 133 mls/hr Insulin Aspart (Novolog) 0 unit SC Q6H SHAYLA PRN Reason: Protocol Last Admin: 06/19/17 05:31 Dose: 2 unit Insulin Glargine (Lantus) 30 unit SC HS [facility] Last Admin: 06/18/17 21:42 Dose: 30 units Lactobacillus Acidophilus (Bacid Acidophilus) 1 cap PO BID [facility] Last Admin: 06/19/17 09:51 Dose: 1 cap Methylprednisolone (Solu-Medrol) 40 mg IVP DAILY [facility] Last Admin: 06/19/17 09:53 Dose: 40 mg Montelukast Sodium (Singulair) 10 mg PO HS [facility] Last Admin: 06/18/17 21:42 Dose: 10 mg Nitroglycerin (Nitrostat Sl Tab) 0.4 mg SL Q5M PRN PRN Reason: Pain, Mild (1-3) Last Admin: 06/12/17 22:51 Dose: 0.4 mg Nystatin (Nystop Topical Powder) 1 applic TOP BID [facility] Last Admin: 06/19/17 09:52 Dose: 1 applic Oxycodone/Acetaminophen (Percocet 5/325 Mg Tab) 1 tab PO Q4H PRN PRN Reason: Pain 4-7 Stop: 06/19/17 12:11 Last Admin: 06/19/17 09:52 Dose: 1 tab Pantoprazole Sodium (Protonix Ec Tab) 40 mg PO DAILY [facility] Last Admin: 06/19/17 10:02 Dose: Not Given - Labs Labs: 06/19/17 06:06 06/19/17 06:07 PT 11.7 SECONDS (9.7-12.2) 06/17/17 21:16 INR 1.0 06/17/17 21:16 APTT 30 SECONDS (21-34) 06/17/17 21:16 - Constitutional Appears: Non-toxic, Chronically Ill - Head Exam Head Exam: NORMOCEPHALIC - Eye Exam Eye Exam: PERRL - ENT Exam ENT Exam: Mucous Membranes Dry - Neck Exam Neck Exam: absent: Lymphadenopathy - Respiratory Exam Respiratory Exam: Decreased Breath Sounds, Rhonchi - Cardiovascular Exam Cardiovascular Exam: REGULAR RHYTHM, +S1, +S2 - GI/Abdominal Exam GI & Abdominal Exam: Distended, Soft. absent: Tenderness - Rectal Exam Rectal Exam: Deferred - Exam Exam: NORMAL INSPECTION - Extremities Exam Extremities Exam: absent: Pedal Edema - Back Exam Back Exam: absent: CVA tenderness (L), CVA tenderness (R) - Neurological Exam Neurological Exam: Altered, CN II-XII Intact Assessment and Plan (1) COPD exacerbation Status: Acute (2) Chronic congestive heart failure Status: Acute (3) Ketoacidosis in diabetes mellitus Status: Active - Assessment and Plan (Free Text) Assessment: cont iv rx for now vanco/merrem
[2017-06-19] MEDS: Vancomycin 1 gm/NS 200 ml 1 GM/200 ML BAG IVPB SCH ×2 (11:22→23:55)
[2017-06-19] MEDS: Pantoprazole 40 mg Susp UD PO SCH (11:22)
--- NOTE | 2017-06-19 13:55 | CP.PCM.CON ---
History of Present Illness - History of Present Illness History of Present Illness: Palliative consult requested by Doctor Alonzo for goals of care discussion Patient is a 61 yo admitted with shortness of breath. Patient is known to me from [facility] where I had seen her for pain management. The initial CXR on this admission, was significant for moderate pulmonary congestion. patient was treated with Solumedrol , Merrem and Vanco. On 06/17, patient was noted with AMS, ORTHO ASSISTANT called. patient's trach and trach colar were not sufficiently large what caused the lack of O2 supply. Patient was taken to OR for XL trach insertion. Patient is now on ICU for closer care. PMH: Bi Polar disorder, schizoaphective disorder, COPD, trach X 5 ears, seizures , BiPolar Soc. Hx: , lives at home fam. Hx: COPD in family Review of Systems - Review of Systems All systems: reviewed and no additional remarkable complaints except Review of Systems: ROS obtained from nursing as patient could not talk, secondary to trach creation. per nursing, patient was afebrile. Past Patient History - Infectious Disease Hx of Infectious Diseases: None - Tetanus Immunizations Tetanus Immunization: Unknown - Past Medical History & Family History Past Medical History?: Yes - Past Social History Smoking Status: Never Smoked - CARDIAC Hx Cardiac Disorders: Yes Hx Congestive Heart Failure: Yes Hx Hypertension: Yes - PULMONARY Hx Chronic Obstructive Pulmonary Disease (COPD): Yes - NEUROLOGICAL Hx Neurological Disorder: Yes Hx Seizures: Yes - HEENT Hx HEENT Problems: Yes Hx Cataracts: Yes - RENAL Hx Chronic Kidney Disease: No - ENDOCRINE/METABOLIC Hx Endocrine Disorders: No - HEMATOLOGICAL/ONCOLOGICAL Hx Blood Disorders: No - INTEGUMENTARY Hx Dermatological Problems: No - MUSCULOSKELETAL/RHEUMATOLOGICAL Hx Musculoskeletal Disorders: No Hx Falls: Yes - GASTROINTESTINAL Hx Gastrointestinal Disorders: Yes Other/Comment: cholecystectomy - GENITOURINARY/GYNECOLOGICAL Hx Genitourinary Disorders: No - PSYCHIATRIC Hx Psychophysiologic Disorder: Yes Hx Anxiety: Yes Hx Bipolar Disorder: Yes Hx Depression: Yes Hx Substance Use: No - SURGICAL HISTORY Hx Surgeries: Yes Hx Appendectomy: Yes Hx Cholecystectomy: Yes Other/Comment: with Trach - ANESTHESIA Hx Anesthesia: Yes Hx Anesthesia Reactions: No Hx Malignant Hyperthermia: No Meds Allergies/Adverse Reactions: Allergies Allergy/AdvReac Type Severity Reaction Status Date / Time aspirin Allergy ANAPHYLAXIS Verified 04/26/17 22:40 ceftriaxone sodium Allergy ANAPHYLAXIS Verified 04/26/17 22:40 [From Rocephin] ibuprofen [From Motrin] Allergy ANAPHYLAXIS Verified 04/26/17 22:40 iodine Allergy ANAPHYLAXIS Verified 04/26/17 22:40 raspberry Allergy ANAPHYLAXIS Verified 04/26/17 22:40 - Medications Medications: Current Medications Al Hydrox/Mg Hydrox/Simethicone (Maalox 30 Ml) 30 ml PO TID PRN PRN Reason: Indigestion / Heartburn Last Admin: 06/19/17 08:24 Dose: 30 ml Albuterol/Ipratropium (Duoneb 3 Mg/0.5 Mg (3 Ml) Ud) 3 ml INH RQ6 SHAYLA Last Admin: 06/19/17 07:46 Dose: 3 ml Enoxaparin Sodium (Lovenox) 40 mg SC DAILY [facility] Last Admin: 06/19/17 09:51 Dose: 40 mg Gabapentin (Neurontin) 800 mg PO TID [facility] Last Admin: 06/19/17 13:15 Dose: 800 mg Meropenem (Merrem Iv 1 Gm Premix) 50 mls @ 100 mls/hr IVPB Q8 SHAYLA PRN Reason: Protocol Last Admin: 06/19/17 13:15 Dose: 100 mls/hr Vancomycin/Sodium Chloride (Vancomycin 1 Gm/Ns 200 Ml) 1 gm in 200 mls @ 133 mls/hr IVPB Q12H SHAYLA PRN Reason: Protocol Stop: 06/23/17 11:16 Last Admin: 06/19/17 11:22 Dose: 133 mls/hr Insulin Aspart (Novolog) 0 unit SC Q6H HSAYLA PRN Reason: Protocol Last Admin: 06/19/17 12:28 Dose: 6 unit Insulin Glargine (Lantus) 30 unit SC [facility] Last Admin: 06/18/17 21:42 Dose: 30 units Lactobacillus Acidophilus (Bacid Acidophilus) 1 cap PO BID [facility] Last Admin: 06/19/17 09:51 Dose: 1 cap Methylprednisolone (Solu-Medrol) 40 mg IVP DAILY [facility] Last Admin: 06/19/17 09:53 Dose: 40 mg Montelukast Sodium (Singulair) 10 mg PO HS [facility] Last Admin: 06/18/17 21:42 Dose: 10 mg Nitroglycerin (Nitrostat Sl Tab) 0.4 mg SL Q5M PRN PRN Reason: Pain, Mild (1-3) Last Admin: 06/12/17 22:51 Dose: 0.4 mg Nystatin (Nystop Topical Powder) 1 applic TOP BID [facility] Last Admin: 06/19/17 09:52 Dose: 1 applic Pantoprazole Sodium (Protonix Susp) 40 mg PO 0600 [facility] Last Admin: 06/19/17 11:22 Dose: 40 mg Physical Exam - Constitutional Appears: No Acute Distress - Head Exam Head Exam: ATRAUMATIC, NORMAL INSPECTION, NORMOCEPHALIC - Eye Exam Eye Exam: EOMI, Normal appearance, PERRL Pupil Exam: NORMAL ACCOMODATION, PERRL - ENT Exam ENT Exam: Mucous Membranes Dry - Neck Exam Additional comments: New trach - Respiratory Exam Respiratory Exam: Decreased Breath Sounds - Cardiovascular Exam Cardiovascular Exam: Tachycardia, REGULAR RHYTHM - GI/Abdominal Exam GI & Abdominal Exam: Diminished Bowel Sounds, Distended - Rectal Exam Rectal Exam: Deferred - Extremities Exam Extremities exam: Positive for: normal inspection - Back Exam Back exam: NORMAL INSPECTION - Neurological Exam Neurological exam: Alert, Oriented x3 - Psychiatric Exam Psychiatric exam: Normal Affect, Normal Mood - Skin Skin Exam: Normal Color, Warm Results - Vital Signs Recent Vital Signs: Last Vital Signs Temp 98.2 F 06/19/17 12:00 Pulse 94 H 06/19/17 11:40 Resp 23 06/19/17 11:40 BP 107/66 06/19/17 11:40 Pulse Ox 94 L 06/19/17 11:40 - Labs Result Diagrams: 06/19/17 06:06 06/19/17 06:07 Labs: Laboratory Results - last 24 hr 06/18/17 06/18/17 06/19/17 17:36 23:28 05:28 WBC RBC Hgb Hct MCV MCH MCHC RDW Plt Count MPV Neut % (Auto) Lymph % (Auto) [place] % (Auto) Eos % (Auto) Baso % (Auto) Neut # (Auto) Lymph # (Auto) [place] # (Auto) Eos # (Auto) Baso # (Auto) Sodium Potassium Chloride Carbon Dioxide Anion Gap BUN Creatinine Est GFR ( Amer) Est GFR (Non-Af Amer) POC Glucose (mg/dL) 256 H 216 H 159 H Random Glucose Calcium Phosphorus Magnesium Total Bilirubin AST ALT Alkaline Phosphatase Total Protein Albumin Globulin Albumin/Globulin Ratio 06/19/17 06/19/1718 06:06 06:07 11:46 WBC 17.1 H RBC 4.57 Hgb 12.4 Hct 37.0 MCV 80.9 L MCH 27.0 MCHC 33.4 RDW 15.3 H Plt Count 152 MPV 8.7 Neut % (Auto) 77.8 H Lymph % (Auto) 15.9 L [place] % (Auto) 5.2 Eos % (Auto) 0.8 Baso % (Auto) 0.3 Neut # (Auto) 13.3 H Lymph # (Auto) 2.7 [place] # (Auto) 0.9 H Eos # (Auto) 0.1 Baso # (Auto) 0.1 Sodium 141 Potassium 3.2 L Chloride 100 Carbon Dioxide 29 Anion Gap 16 BUN 24 H Creatinine 0.9 Est GFR ( Amer) > 60 Est GFR (Non-Af Amer) > 60 POC Glucose (mg/dL) 332 H Random Glucose 158 H Calcium 8.6 Phosphorus 2.7 Magnesium 2.0 Total Bilirubin 1.0 AST 21 ALT 14 Alkaline Phosphatase 98 Total Protein 7.3 Albumin 3.4 L Globulin 3.9 Albumin/Globulin Ratio 0.9 L Assessment & Plan - Assessment and Plan (Free Text) Assessment: Palliative consult Full Code, there is no Advance directive on chart, PPS 30% I reviewed medical records, all diagnostic studies, examined patient in the bed. Patient is alert and oriented. patient remembered me from visits at [place]. patient appears in no acute distress. Patient is morbidly obese. Skin is intact. Breath sounds diminished. patient is on MV support . Abdomen large, distended, patient complains of some discomfort to lower abdomen. Diminished bowel sounds. Sweet at BS. Extremities mobile, mild edema, PP present. Complains of joint pain and numbness to both feet. BP 109/56, HR 92 regular rhythm. Afebrle. Patient unable to talk due to trach. I asked if I could talk to her daughter and she agreed. In phone conversation with daughter Toshia, we agreed to meet tomorrow at 10 am for family meeting. Daughter mentioned that her mother had had trach for 5 years and was able to eat all along. 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
--- NOTE | 2017-06-19 15:11 | PN ---
DATE: SUBJECTIVE: The patient is seen. The patient is doing much better today. The patient went to the OR today for a procedure, tracheostomy changed. She is doing much better. The patient, however, when seen today, started to cry, stating that she wanted really to go home by Sunday to attend her granddaughter's fifth birthday, but the patient is not medically stable to be discharged. The patient states that she might need also to go for subacute rehab as she is still medically fit at this time. The patient is off psych medications, but not exhibiting any signs of psychosis or any behavioral problems. We will keep her off psych meds for a few days before we will start it again. PHYSICAL EXAMINATION: VITAL SIGNS: Temperature is 99.1, pulse rate is 95, blood pressure 108/57, respirations 21, oxygen saturation is 94%. NECK: The patient has a trach collar. REVIEW OF SYSTEMS: GENERAL: The patient is more alert, verbal, crying when seen, not in acute respiratory distress. SKIN: No diaphoresis. HEENT: No headache or dizziness. NECK: Has trach collar. RESPIRATORY: No dyspnea. CARDIOVASCULAR: No chest pain. GASTROINTESTINAL: No nausea. No vomiting. EXTREMITIES: Moving extremities. MUSCULOSKELETAL: Feels weak. NEUROLOGIC: Alert and oriented x3. GENITOURINARY: No dysuria. MENTAL STATUS EXAMINATION: Obese female who looks stated age, oriented x3. Mood is depressed, tearful, crying. Affect is reactive. Speech is spontaneous. Thought process is coherent. Thought content, the patient is upset that she cannot go home to attend her granddaughter's fifth birthday due to medical problems. She is amenable to go for subacute rehab. The patient was at [place] before. No psychosis. No suicidal or homicidal ideation. Attention and memory seem to be fair. Insight and judgment fair. Impulse control is fair. IMPRESSION: History of schizoaffective disorder bipolar type, as well as history of respiratory failure, history of obesity, pneumonia, hypertension, diabetes, chronic obstructive pulmonary disease, status post tracheostomy placement. PLAN AND RECOMMENDATIONS: The patient is seen, meds reviewed. We will continue present management. We will keep the patient off psych meds for a day or two more before we will start her back on her old psych medications. The patient is currently in ICU. Wellington Dejesus MD [facility] # [id number]
[2017-06-19] MEDS: (Lantus) Insulin Glargine, Recombinant SC SCH (21:14)
--- NOTE | 2017-06-19 22:53 | CARD ---
APPROVED REPORT EKG Measurement Heart [id number] <Conclusion> Normal sinus rhythm Cannot rule out Anterior infarct, age undetermined Abnormal ECG
--- NOTE | 2017-06-19 22:54 | CARD ---
APPROVED REPORT EKG Measurement Heart [id number] <Conclusion> Sinus tachycardia Septal infarct, age undetermined Abnormal ECG
--- NOTE | 2017-06-19 23:52 | CP.PCM.PN ---
Subjective - Date & Time of Evaluation Date of Evaluation: 06/19/17 Time of Evaluation: 20:00 - Subjective Subjective: Pt seen and examined Objective - Vital Signs/Intake and Output Vital Signs (last 24 hours): Temp Pulse Resp BP Pulse Ox 98.4 F 97 H 15 127/74 98 06/19/17 20:00 06/19/17 21:00 06/19/17 21:00 06/19/17 20:39 06/19/17 21:00 Intake and Output: 06/19/17 06/20/17 18:59 06:59 Intake Total 644.8 170 Output Total 600 600 Balance 44.8 -430 - Medications Medications: Current Medications Al Hydrox/Mg Hydrox/Simethicone (Maalox 30 Ml) 30 ml PO TID PRN PRN Reason: Indigestion / Heartburn Last Admin: 06/19/17 14:03 Dose: 30 ml Albuterol/Ipratropium (Duoneb 3 Mg/0.5 Mg (3 Ml) Ud) 3 ml INH RQ6 SHAYLA Last Admin: 06/19/17 19:59 Dose: 3 ml Enoxaparin Sodium (Lovenox) 40 mg SC DAILY SHAY[facility] Last Admin: 06/19/17 09:51 Dose: 40 mg Gabapentin (Neurontin) 800 mg PO TID SHAYLA Last Admin: 06/19/17 17:28 Dose: 800 mg Meropenem (Merrem Iv 1 Gm Premix) 50 mls @ 100 mls/hr IVPB Q8 SHAYLA PRN Reason: Protocol Last Admin: 06/19/17 21:14 Dose: 100 mls/hr Vancomycin/Sodium Chloride (Vancomycin 1 Gm/Ns 200 Ml) 1 gm in 200 mls @ 133 mls/hr IVPB Q12H SHAYLA PRN Reason: Protocol Stop: 06/23/17 11:16 Last Admin: 06/19/17 11:22 Dose: 133 mls/hr Insulin Aspart (Novolog) 0 unit SC Q6H SHAYLA PRN Reason: Protocol Last Admin: 06/19/17 17:28 Dose: 6 unit Insulin Glargine (Lantus) 30 unit SC HS SHAYLA Last Admin: 06/19/17 21:14 Dose: 30 units Lactobacillus Acidophilus (Bacid Acidophilus) 1 cap PO BID SHAYLA Last Admin: 06/19/17 17:28 Dose: 1 cap Methylprednisolone (Solu-Medrol) 40 mg IVP DAILY [facility] Last Admin: 06/19/17 09:53 Dose: 40 mg Montelukast Sodium (Singulair) 10 mg PO HS [facility] Last Admin: 06/19/17 21:14 Dose: 10 mg Nitroglycerin (Nitrostat Sl Tab) 0.4 mg SL Q5M PRN PRN Reason: Pain, Mild (1-3) Last Admin: 06/12/17 22:51 Dose: 0.4 mg Nystatin (Nystop Topical Powder) 1 applic TOP BID [facility] Last Admin: 06/19/17 17:31 Dose: 1 applic Oxycodone/Acetaminophen (Percocet 5/325 Mg Tab) 1 tab PO Q4H PRN PRN Reason: Pain, moderate (4-7) Stop: 06/22/17 19:59 Last Admin: 06/19/17 21:15 Dose: 1 tab Pantoprazole Sodium (Protonix Susp) 40 mg PO 0600 [facility] Last Admin: 06/19/17 11:22 Dose: 40 mg - Labs Labs: 06/19/17 06:06 06/19/17 06:07 PT 11.7 SECONDS (9.7-12.2) 06/17/17 21:16 INR 1.0 06/17/17 21:16 APTT 30 SECONDS (21-34) 06/17/17 21:16
[2017-06-20] MEDS: (Novolog) Insulin Aspart, Recombinant 100 u/ml 10 ml vial SC SCH ×4 (00:32→17:45)
[2017-06-20] MEDS: Oxycodone/Acetaminophen 5/325 mg Tab PO PRN ×4 (01:14→19:14)
[2017-06-20] MEDS: Albuterol-Ipratrop 3 mg / 0.5 (3 ml) UD INH SCH ×3 (01:15→13:35)
[2017-06-20] MEDS: Pantoprazole 40 mg Susp UD PO SCH (05:20)
[2017-06-20] MEDS: Meropenem IV 1 gm in NS 50 ML IVPB SCH ×3 (05:21→22:17)
[2017-06-20 06:41] LABS: BASO % 0.1 % (0.0-2.0); EOS # 0.1 K/uL (0.0-0.7); EOS % 0.8 % (0.0-4.0); HEMOGLOBIN 12.6 g/dL (11.0-16.0); LYMPH # 2.6 K/uL (1.0-4.3); LYMPH % 16.7 % (20.0-40.0); MEAN CELL VOLUME 81.9 fL (81.0-99.0); MEAN CORPUSCULAR HEMOGLOBIN 26.7 pg (27.0-31.0); MEAN CORPUSCULAR HGB CONC 32.5 g/dL (33.0-37.0); MEAN PLATELET VOLUME 8.7 fL (7.2-11.7); MONO # 1.1 K/uL (0.0-0.8); MONO % 7.2 % (0.0-10.0); NEUT # 11.8 K/uL (1.8-7.0); NEUT % 75.2 % (50.0-75.0); NRBC % 0.1 % (0.0-2.0); RBC 4.74 Mil/uL (3.80-5.20); RED CELL DISTRIBUTION WIDTH 15.6 % (11.5-14.5); WHITE BLOOD COUNT 15.6 K/uL (4.8-10.8)
[2017-06-20 06:58] LABS: ALB/GLOB RATIO 0.8 (1.0-2.1); ALBUMIN 3.5 g/dL (3.5-5.0); ALT/SGPT < 6 U/L (9-52); AST/SGOT 22 U/L (14-36); BLOOD UREA NITROGEN 22 mg/dL (7-17); CALCIUM 8.7 mg/dl (8.6-10.4); GFR AFRICAN-AMERICAN > 60; GFR NON-AFRICAN AMERICAN > 60
[2017-06-20] MEDS: Enoxaparin 40 mg Syringe SC SCH (09:49)
[2017-06-20] MEDS: Lactobacillus Acidophilus 500 MU Cap PO SCH ×2 (09:49→17:45)
[2017-06-20] MEDS: MethylPREDNISolone 40 mg Vial IVP SCH (09:50)
--- NOTE | 2017-06-20 11:01 | CP.CCUPN ---
<Pacheco Lucero - Last Filed: 06/20/17 10:58> CCU Subjective - Physician Review Subjective (Free Text): 06/18/17 08:37 Patient seen and examined. Patient is intubated and sedated on Diprivan at this time. 06/19/17 08:16 Patient seen and examined. Patient is non-verbal due to trach but is motioning for general abdominal pain. 06/20/17 10:58 Patient seen and examined. Patient remains non-verbal due to her current trach however, this will be switched to a fenestrated trach in the future per Dr. Rosado. CCU Objective - Vital Signs / Intake & Output Intake and Output (Last 8hrs): Intake & Output 06/19/17 06/20/17 06/20/17 22:59 06:59 14:59 Intake Total 340 670 Output Total 1100 500 Balance -760 170 Weight 276 lb Intake: Intake, IV Amount 50 250 Left Forearm 50 250 Tube Feeding 240 270 Other 50 150 Output: Urine 1100 500 Urine, Voided 1100 500 Other: # Bowel Movements 0 - Physical Exam Head: Positive for: Atraumatic, Normocephalic Pupils: Positive for: PERRL Extroacular Muscles: Positive for: EOMI Conjunctiva: Positive for: Normal Mouth: Positive for: Moist Mucous Membranes Nose (External): Positive for: Other (NGT in place) Neck: Positive for: Trachea Midline Respiratory/Chest: Positive for: Clear to Auscultation. Negative for: Wheezes, Rales, Rhonchi Cardiovascular: Positive for: Regular Rate and Rhythm, Normal S1, S2 Abdomen: Positive for: Normal Bowel Sounds. Negative for: Tenderness Upper Extremity: Positive for: Normal Inspection Lower Extremity: Positive for: Edema (non-pitting) Skin: Positive for: Warm, Dry - Medications Active Medications: Active Medications Generic Name Dose Route Start Last Admin Trade Name Freq PRN Reason Stop Dose Admin Al Hydrox/Mg Hydrox/Simethicone 30 ml 06/18/17 16:28 06/19/17 14:03 Maalox 30 Ml PO 30 ml TID PRN Administration Indigestion / Heartburn Albuterol/Ipratropium 3 ml 06/13/17 02:00 06/20/17 07:18 Duoneb 3 Mg/0.5 Mg (3 Ml) Ud INH 3 ml RQ6 SHAYLA Administration Enoxaparin Sodium 40 mg 06/13/17 10:00 06/20/17 09:49 Lovenox SC 40 mg DAILY SHAYLA Administration Gabapentin 800 mg 06/13/17 10:00 06/20/17 09:49 Neurontin PO 800 mg TID SHAYLA Administration Meropenem 50 mls @ 100 mls/hr 06/17/17 22:00 06/20/17 05:21 Merrem Iv 1 Gm Premix IVPB 100 mls/hr Q8 SHAYLA Administration Protocol Vancomycin/Sodium Chloride 1 gm in 200 mls @ 133 mls/hr 06/18/17 11:15 23:55 Vancomycin 1 Gm/Ns 200 Ml IVPB 06/23/17 11:16 133 mls/hr Q12H SHAYLA Administration Protocol Insulin Aspart 0 unit 06/18/17 00:00 06/20/17 05:20 Novolog SC 2 unit Q6H SHAYLA Administration Protocol Insulin Glargine 30 unit 06/12/17 22:00 06/19/17 21:14 Lantus SC 30 units HS SHAYLA Administration Lactobacillus Acidophilus 1 cap 06/13/17 10:00 06/20/17 09:49 Bacid Acidophilus PO 1 cap BID SHAYLA Administration Methylprednisolone 40 mg 06/17/17 10:00 06/20/17 09:50 Solu-Medrol IVP 40 mg DAILY SHAYLA Administration Montelukast Sodium 10 mg 06/12/17 22:00 06/19/17 21:14 Singulair PO 10 mg HS SHAYLA Administration Nitroglycerin 0.4 mg 06/12/17 22:12 06/12/17 22:51 Nitrostat Sl Tab SL 0.4 mg Q5M PRN Administration Pain, Mild (1-3) Nystatin 1 applic 06/13/17 10:00 06/19/17 17:31 Nystop Topical Powder TOP 1 applic BID SHAYLA Administration Oxycodone/Acetaminophen 1 tab 06/19/17 19:58 06/20/17 05:21 Percocet 5/325 Mg Tab PO 06/22/17 19:59 1 tab Q4H PRN Administration Pain, moderate (4-7) Pantoprazole Sodium 40 mg 06/19/17 10:45 06/20/17 05:20 Protonix Susp PO 40 mg 0600 SHAYLA Administration - Patient Studies Lab Studies: Microbiology Studies 06/17/17 20:55 Gram Stain - Final Trachasp Sputum Culture - Final Proteus Mirabilis 06/17/17 21:47 MRSA Culture (Admit) - Final Naris MRSA NOT DETECTED 06/17/17 21:30 Blood Culture - Preliminary Blood-Venous NO GROWTH AFTER 48 HOURS 06/17/17 21:30 Blood Culture - Preliminary Blood-Venous NO GROWTH AFTER 48 HOURS 06/17/17 20:55 Urine Culture - Final Urine,Sweet No Growth (<1,000 CFU/ML) Lab Studies 06/20/17 06/20/17 06/20/17 Range/Units 06:28 06:28 05:09 WBC 15.6 H (4.8-10.8) K/uL RBC 4.74 (3.80-5.20) Mil/uL Hgb 12.6 (11.0-16.0) g/dL Hct 38.8 (34.0-47.0) % MCV 81.9 (81.0-99.0) fL MCH 26.7 L (27.0-31.0) pg MCHC 32.5 L (33.0-37.0) g/dL RDW 15.6 H (11.5-14.5) % Plt Count 170 (130-400) K/uL MPV 8.7 (7.2-11.7) fL Neut % (Auto) 75.2 H (50.0-75.0) % Lymph % (Auto) 16.7 L (20.0-40.0) % Josephine % (Auto) 7.2 (0.0-10.0) % Eos % (Auto) 0.8 (0.0-4.0) % Baso % (Auto) 0.1 (0.0-2.0) % Neut # (Auto) 11.8 H (1.8-7.0) K/uL Lymph # (Auto) 2.6 (1.0-4.3) K/uL Josephine # (Auto) 1.1 H (0.0-0.8) K/uL Eos # (Auto) 0.1 (0.0-0.7) K/uL Baso # (Auto) 0.0 (0.0-0.2) K/uL Sodium 144 (132-148) mmol/L Potassium 3.8 (3.6-5.2) mmol/L Chloride 104 (98-107) mmol/L Carbon Dioxide 29 (22-30) mmol/L Anion Gap 15 (10-20) BUN 22 H (7-17) mg/dL Creatinine 0.8 (0.7-1.2) mg/dL Est GFR ( Amer) > 60 Est GFR (Non-Af Amer) > 60 POC Glucose (mg/dL) 155 H (65-110) mg/dL Random Glucose 147 H (65-105) mg/dL Calcium 8.7 (8.6-10.4) mg/dl Phosphorus 2.7 (2.5-4.5) mg/dL Magnesium 2.4 H (1.6-2.3) mg/dL Total Bilirubin 0.8 (0.2-1.3) mg/dL AST 22 (14-36) U/L ALT < 6 L D (9-52) U/L Alkaline Phosphatase 109 (38-126) U/L Total Protein 7.9 (6.3-8.3) g/dL Albumin 3.5 (3.5-5.0) g/dL Globulin 4.4 H (2.2-3.9) gm/dL Albumin/Globulin Ratio 0.8 L (1.0-2.1) 06/19/17 06/19/17 06/19/17 Range/Units 23:28 17:19 11:46 WBC (4.8-10.8) K/uL RBC (3.80-5.20) Mil/uL Hgb (11.0-16.0) g/dL Hct (34.0-47.0) % MCV (81.0-99.0) fL MCH (27.0-31.0) pg MCHC (33.0-37.0) g/dL RDW (11.5-14.5) % Plt Count (130-400) K/uL MPV (7.2-11.7) fL Neut % (Auto) (50.0-75.0) % Lymph % (Auto) (20.0-40.0) % Josephine % (Auto) (0.0-10.0) % Eos % (Auto) (0.0-4.0) % Baso % (Auto) (0.0-2.0) % Neut # (Auto) (1.8-7.0) K/uL Lymph # (Auto) (1.0-4.3) K/uL Josephine # (Auto) (0.0-0.8) K/uL Eos # (Auto) (0.0-0.7) K/uL Baso # (Auto) (0.0-0.2) K/uL Sodium (132-148) mmol/L Potassium (3.6-5.2) mmol/L Chloride (98-107) mmol/L Carbon Dioxide (22-30) mmol/L Anion Gap (10-20) BUN (7-17) mg/dL Creatinine (0.7-1.2) mg/dL Est GFR ( Amer) Est GFR (Non-Af Amer) POC Glucose (mg/dL) 240 H 331 H 332 H (65-110) mg/dL Random Glucose (65-105) mg/dL Calcium (8.6-10.4) mg/dl Phosphorus (2.5-4.5) mg/dL Magnesium (1.6-2.3) mg/dL Total Bilirubin (0.2-1.3) mg/dL AST (14-36) U/L ALT (9-52) U/L Alkaline Phosphatase (38-126) U/L Total Protein (6.3-8.3) g/dL Albumin (3.5-5.0) g/dL Globulin (2.2-3.9) gm/dL Albumin/Globulin Ratio (1.0-2.1) Laboratory Results - last 24 hr 06/19/17 06/19/17 06/19/17 11:46 17:19 23:28 WBC RBC Hgb Hct MCV MCH MCHC RDW Plt Count MPV Neut % (Auto) Lymph % (Auto) Josephine % (Auto) Eos % (Auto) Baso % (Auto) Neut # (Auto) Lymph # (Auto) Josephine # (Auto) Eos # (Auto) Baso # (Auto) Sodium Potassium Chloride Carbon Dioxide Anion Gap BUN Creatinine Est GFR ( Amer) Est GFR (Non-Af Amer) POC Glucose (mg/dL) 332 H 331 H 240 H Random Glucose Calcium Phosphorus Magnesium Total Bilirubin AST ALT Alkaline Phosphatase Total Protein Albumin Globulin Albumin/Globulin Ratio 06/20/17 06/20/17 06/20/17 05:09 06:28 06:28 WBC 15.6 H RBC 4.74 Hgb 12.6 Hct 38.8 MCV 81.9 MCH 26.7 L MCHC 32.5 L RDW 15.6 H Plt Count 170 MPV 8.7 Neut % (Auto) 75.2 H Lymph % (Auto) 16.7 L Josephine % (Auto) 7.2 Eos % (Auto) 0.8 Baso % (Auto) 0.1 Neut # (Auto) 11.8 H Lymph # (Auto) 2.6 Josephine # (Auto) 1.1 H Eos # (Auto) 0.1 Baso # (Auto) 0.0 Sodium 144 Potassium 3.8 Chloride 104 Carbon Dioxide 29 Anion Gap 15 BUN 22 H Creatinine 0.8 Est GFR ( Amer) > 60 Est GFR (Non-Af Amer) > 60 POC Glucose (mg/dL) 155 H Random Glucose 147 H Calcium 8.7 Phosphorus 2.7 Magnesium 2.4 H Total Bilirubin 0.8 AST 22 ALT < 6 L D Alkaline Phosphatase 109 Total Protein 7.9 Albumin 3.5 Globulin 4.4 H Albumin/Globulin Ratio 0.8 L Fingerstick Blood Sugar Results: 331 Critical Care Progress Note - Nutrition Nutrition: Nutrition Category Date Time Status NPO Diet [DIET] Diets 06/18/17 Breakfast Active Assessment/Plan - Assessment and Plan (Free Text) Assessment: This is a 61 year old female with PMHx COPD, DM , schizoaffective disorder ( bipolar type) who presented for shortness of breath. [employer] called for shortness of breath. Patient intubated due to shortness of breath while on trach likely due to thick mucus plug. Tracheostomy was removed. Patient intubated and transferred to ICU. On 06/18/17, patient had a new trach put in by surgery. Neuro Awake, alert but non-verbal due to trach Cardio No active issues Pulm Assessment: Respiratory failure, tracheostomy Duoneb Q6H Singulair 10 mg HS Solumedrol 40 mg IV daily Plan to wean off of ventilator support GI Tube feeds Protonix 40 mg PO daily Endocrine Assessment: DM 2 Novolog ISS Q6H Lantus 30 units SC HS Gabapentin 800 mg TID Infectious Disease Merrem Q8H Vancomycin 1 gm IV Q12H Psych Assessment: Schizoaffective disorder bipolar type Psych on consult Per Dr. Lopez, the following medications are held at this time due to intubation/sedation: Lamictal 100 Q12, Zoloft 100 mg Q12, Seroquel 400 mg Q12 Prophylaxis Lovenox 40 mg SC daily Protonix 40 mg PO daily Disposition: Transfer to [facility] Discussed with Dr. Rosado <Rodo Rosado - Last Filed: 06/20/17 15:29> CCU Objective - Vital Signs / Intake & Output Vital Signs (Last 4 hours): Vital Signs Temp Pulse Resp BP Pulse Ox 06/20/17 15:00 93 H 24 95 06/20/17 14:45 92 H 33 H 154/84 H 92 L 06/20/17 14:00 93 H 20 92 L 06/20/17 13:46 95 H 25 H 137/88 93 L 06/20/17 13:00 90 99 06/20/17 12:00 99.1 F 91 H 19 100 06/20/17 11:45 91 H 16 134/70 100 Intake and Output (Last 8hrs): Intake & Output 06/20/17 06/20/17 06/20/17 06:59 14:59 22:59 Intake Total 670 630 Output Total 500 Balance 170 630 Weight 276 lb Intake: Intake, IV Amount 250 300 Left Forearm 250 300 Tube Feeding 270 210 Other 150 120 Output: Urine 500 Urine, Voided 500 - Medications Active Medications: Active Medications Generic Name Dose Route Start Last Admin Trade Name Freq PRN Reason Stop Dose Admin Al Hydrox/Mg Hydrox/Simethicone 30 ml 06/18/17 16:28 06/19/17 14:03 Maalox 30 Ml PO 30 ml TID PRN Administration Indigestion / Heartburn Albuterol/Ipratropium 3 ml 06/13/17 02:00 06/20/17 13:35 Duoneb 3 Mg/0.5 Mg (3 Ml) Ud INH 3 ml RQ6 SHAYLA Administration Enoxaparin Sodium 40 mg 06/13/17 10:00 06/20/17 09:49 Lovenox SC 40 mg DAILY SHAYLA Administration Gabapentin 800 mg 06/13/17 10:00 06/20/17 13:01 Neurontin PO 800 mg TID SHAYLA Administration Meropenem 50 mls @ 100 mls/hr 06/17/17 22:00 06/20/17 14:03 Merrem Iv 1 Gm Premix IVPB 100 mls/hr Q8 SHAYLA Administration Protocol Vancomycin/Sodium Chloride 1 gm in 200 mls @ 133 mls/hr 06/18/17 11:15 12:10 Vancomycin 1 Gm/Ns 200 Ml IVPB 06/23/17 11:16 133 mls/hr Q12H SHAYLA Administration Protocol Insulin Aspart 0 unit 06/18/17 00:00 06/20/17 12:59 Novolog SC 3 unit Q6H SHAYLA Administration Protocol Insulin Glargine 30 unit 06/12/17 22:00 06/19/17 21:14 Lantus SC 30 units HS SHAYLA Administration Lactobacillus Acidophilus 1 cap 06/13/17 10:00 06/20/17 09:49 Bacid Acidophilus PO 1 cap BID SHAYLA Administration Methylprednisolone 40 mg 06/17/17 10:00 06/20/17 09:50 Solu-Medrol IVP 40 mg DAILY SHAYLA Administration Montelukast Sodium 10 mg 06/12/17 22:00 06/19/17 21:14 Singulair PO 10 mg HS SHAYLA Administration Nitroglycerin 0.4 mg 06/12/17 22:12 06/12/17 22:51 Nitrostat Sl Tab SL 0.4 mg Q5M PRN Administration Pain, Mild (1-3) Nystatin 1 applic 06/13/17 10:00 06/20/17 10:00 Nystop Topical Powder TOP 1 applic BID SHAYLA Administration Oxycodone/Acetaminophen 1 tab 06/19/17 19:58 06/20/17 12:13 Percocet 5/325 Mg Tab PO 06/22/17 19:59 1 tab Q4H PRN Administration Pain, moderate (4-7) Pantoprazole Sodium 40 mg 06/19/17 10:45 06/20/17 05:20 Protonix Susp PO 40 mg 0600 SHAYLA Administration - Patient Studies Lab Studies: Microbiology Studies 06/17/17 20:55 Gram Stain - Final Trachasp Sputum Culture - Final Proteus Mirabilis 06/17/17 21:47 MRSA Culture (Admit) - Final Naris MRSA NOT DETECTED 06/17/17 21:30 Blood Culture - Preliminary Blood-Venous NO GROWTH AFTER 48 HOURS 06/17/17 21:30 Blood Culture - Preliminary Blood-Venous NO GROWTH AFTER 48 HOURS Lab Studies 06/20/17 06/20/17 06/20/17 Range/Units 11:27 06:28 06:28 WBC 15.6 H (4.8-10.8) K/uL RBC 4.74 (3.80-5.20) Mil/uL Hgb 12.6 (11.0-16.0) g/dL Hct 38.8 (34.0-47.0) % MCV 81.9 (81.0-99.0) fL MCH 26.7 L (27.0-31.0) pg MCHC 32.5 L (33.0-37.0) g/dL RDW 15.6 H (11.5-14.5) % Plt Count 170 (130-400) K/uL MPV 8.7 (7.2-11.7) fL Neut % (Auto) 75.2 H (50.0-75.0) % Lymph % (Auto) 16.7 L (20.0-40.0) % Josephine % (Auto) 7.2 (0.0-10.0) % Eos % (Auto) 0.8 (0.0-4.0) % Baso % (Auto) 0.1 (0.0-2.0) % Neut # (Auto) 11.8 H (1.8-7.0) K/uL Lymph # (Auto) 2.6 (1.0-4.3) K/uL Josephine # (Auto) 1.1 H (0.0-0.8) K/uL Eos # (Auto) 0.1 (0.0-0.7) K/uL Baso # (Auto) 0.0 (0.0-0.2) K/uL Sodium 144 (132-148) mmol/L Potassium 3.8 (3.6-5.2) mmol/L Chloride 104 (98-107) mmol/L Carbon Dioxide 29 (22-30) mmol/L Anion Gap 15 (10-20) BUN 22 H (7-17) mg/dL Creatinine 0.8 (0.7-1.2) mg/dL Est GFR ( Amer) > 60 Est GFR (Non-Af Amer) > 60 POC Glucose (mg/dL) 215 H (65-110) mg/dL Random Glucose 147 H (65-105) mg/dL Calcium 8.7 (8.6-10.4) mg/dl Phosphorus 2.7 (2.5-4.5) mg/dL Magnesium 2.4 H (1.6-2.3) mg/dL Total Bilirubin 0.8 (0.2-1.3) mg/dL AST 22 (14-36) U/L ALT < 6 L D (9-52) U/L Alkaline Phosphatase 109 (38-126) U/L Total Protein 7.9 (6.3-8.3) g/dL Albumin 3.5 (3.5-5.0) g/dL Globulin 4.4 H (2.2-3.9) gm/dL Albumin/Globulin Ratio 0.8 L (1.0-2.1) 06/20/17 06/19/17 06/19/17 Range/Units 05:09 23:28 17:19 WBC (4.8-10.8) K/uL RBC (3.80-5.20) Mil/uL Hgb (11.0-16.0) g/dL Hct (34.0-47.0) % MCV (81.0-99.0) fL MCH (27.0-31.0) pg MCHC (33.0-37.0) g/dL RDW (11.5-14.5) % Plt Count (130-400) K/uL MPV (7.2-11.7) fL Neut % (Auto) (50.0-75.0) % Lymph % (Auto) (20.0-40.0) % Josephine % (Auto) (0.0-10.0) % Eos % (Auto) (0.0-4.0) % Baso % (Auto) (0.0-2.0) % Neut # (Auto) (1.8-7.0) K/uL Lymph # (Auto) (1.0-4.3) K/uL Josephine # (Auto) (0.0-0.8) K/uL Eos # (Auto) (0.0-0.7) K/uL Baso # (Auto) (0.0-0.2) K/uL Sodium (132-148) mmol/L Potassium (3.6-5.2) mmol/L Chloride (98-107) mmol/L Carbon Dioxide (22-30) mmol/L Anion Gap (10-20) BUN (7-17) mg/dL Creatinine (0.7-1.2) mg/dL Est GFR ( Amer) Est GFR (Non-Af Amer) POC Glucose (mg/dL) 155 H 240 H 331 H (65-110) mg/dL Random Glucose (65-105) mg/dL Calcium (8.6-10.4) mg/dl Phosphorus (2.5-4.5) mg/dL Magnesium (1.6-2.3) mg/dL Total Bilirubin (0.2-1.3) mg/dL AST (14-36) U/L ALT (9-52) U/L Alkaline Phosphatase (38-126) U/L Total Protein (6.3-8.3) g/dL Albumin (3.5-5.0) g/dL Globulin (2.2-3.9) gm/dL Albumin/Globulin Ratio (1.0-2.1) Laboratory Results - last 24 hr 06/19/17 06/19/17 06/20/17 17:19 23:28 05:09 WBC RBC Hgb Hct MCV MCH MCHC RDW Plt Count MPV Neut % (Auto) Lymph % (Auto) Josephine % (Auto) Eos % (Auto) Baso % (Auto) Neut # (Auto) Lymph # (Auto) Josephine # (Auto) Eos # (Auto) Baso # (Auto) Sodium Potassium Chloride Carbon Dioxide Anion Gap BUN Creatinine Est GFR ( Amer) Est GFR (Non-Af Amer) POC Glucose (mg/dL) 331 H 240 H 155 H Random Glucose Calcium Phosphorus Magnesium Total Bilirubin AST ALT Alkaline Phosphatase Total Protein Albumin Globulin Albumin/Globulin Ratio 06/20/17 06/20/17 06/20/17 06:28 06:28 11:27 WBC 15.6 H RBC 4.74 Hgb 12.6 Hct 38.8 MCV 81.9 MCH 26.7 L MCHC 32.5 L RDW 15.6 H Plt Count 170 MPV 8.7 Neut % (Auto) 75.2 H Lymph % (Auto) 16.7 L Josephine % (Auto) 7.2 Eos % (Auto) 0.8 Baso % (Auto) 0.1 Neut # (Auto) 11.8 H Lymph # (Auto) 2.6 Josephine # (Auto) 1.1 H Eos # (Auto) 0.1 Baso # (Auto) 0.0 Sodium 144 Potassium 3.8 Chloride 104 Carbon Dioxide 29 Anion Gap 15 BUN 22 H Creatinine 0.8 Est GFR ( Amer) > 60 Est GFR (Non-Af Amer) > 60 POC Glucose (mg/dL) 215 H Random Glucose 147 H Calcium 8.7 Phosphorus 2.7 Magnesium 2.4 H Total Bilirubin 0.8 AST 22 ALT < 6 L D Alkaline Phosphatase 109 Total Protein 7.9 Albumin 3.5 Globulin 4.4 H Albumin/Globulin Ratio 0.8 L Critical Care Progress Note - Nutrition Nutrition: Nutrition Category Date Time Status NPO Diet [DIET] Diets 06/18/17 Breakfast Active Attending/Attestation - Attestation I have personally seen and examined this patient.: Yes I have fully participated in the care of the patient.: Yes I have reviewed all pertinent clinical information: Yes Notes (Text): 06/20/17 15:28 patient seen and examined in the intensive care unit. Case discussed with house staff in the morning rounds .Tolerating trach collar no distress Switch to fenestrated trach Transfer to floor
[2017-06-20] MEDS: Vancomycin 1 gm/NS 200 ml 1 GM/200 ML BAG IVPB SCH ×2 (12:10→22:47)
--- NOTE | 2017-06-20 17:40 | CP.PCM.PN ---
Subjective - Date & Time of Evaluation Date of Evaluation: 06/20/17 Time of Evaluation: 07:00 - Subjective Subjective: awake alert OOB to chair trach collar in place s/p extubation denies fever Objective - Vital Signs/Intake and Output Vital Signs (last 24 hours): Temp Pulse Resp BP Pulse Ox 99.1 F 93 H 24 154/84 H 95 06/20/17 12:00 06/20/17 15:00 06/20/17 15:00 06/20/17 14:45 06/20/17 15:00 Intake and Output: 06/20/17 06/20/17 06:59 18:59 Intake Total 890 773 Output Total 1100 Balance -210 773 - Medications Medications: Current Medications Al Hydrox/Mg Hydrox/Simethicone (Maalox 30 Ml) 30 ml PO TID PRN PRN Reason: Indigestion / Heartburn Last Admin: 06/19/17 14:03 Dose: 30 ml Albuterol/Ipratropium (Duoneb 3 Mg/0.5 Mg (3 Ml) Ud) 3 ml INH RQ6 SHAYLA Last Admin: 06/20/17 13:35 Dose: 3 ml Enoxaparin Sodium (Lovenox) 40 mg SC DAILY SHAYLA Last Admin: 06/20/17 09:49 Dose: 40 mg Gabapentin (Neurontin) 800 mg PO TID SHAYLA Last Admin: 06/20/17 13:01 Dose: 800 mg Meropenem (Merrem Iv 1 Gm Premix) 50 mls @ 100 mls/hr IVPB Q8 SHAYLA PRN Reason: Protocol Last Admin: 06/20/17 14:03 Dose: 100 mls/hr Vancomycin/Sodium Chloride (Vancomycin 1 Gm/Ns 200 Ml) 1 gm in 200 mls @ 133 mls/hr IVPB Q12H SHAYLA PRN Reason: Protocol Stop: 06/23/17 11:16 Last Admin: 06/20/17 12:10 Dose: 133 mls/hr Insulin Aspart (Novolog) 0 unit SC Q6H SHAYLA PRN Reason: Protocol Last Admin: 06/20/17 12:59 Dose: 3 unit Insulin Glargine (Lantus) 30 unit SC HS SHAYLA Last Admin: 06/19/17 21:14 Dose: 30 units Lactobacillus Acidophilus (Bacid Acidophilus) 1 cap PO BID SHAYLA Last Admin: 06/20/17 09:49 Dose: 1 cap Methylprednisolone (Solu-Medrol) 40 mg IVP DAILY [facility] Last Admin: 06/20/17 09:50 Dose: 40 mg Montelukast Sodium (Singulair) 10 mg PO HS [facility] Last Admin: 06/19/17 21:14 Dose: 10 mg Nitroglycerin (Nitrostat Sl Tab) 0.4 mg SL Q5M PRN PRN Reason: Pain, Mild (1-3) Last Admin: 06/12/17 22:51 Dose: 0.4 mg Nystatin (Nystop Topical Powder) 1 applic TOP BID [facility] Last Admin: 06/20/17 10:00 Dose: 1 applic Oxycodone/Acetaminophen (Percocet 5/325 Mg Tab) 1 tab PO Q4H PRN PRN Reason: Pain, moderate (4-7) Stop: 06/22/17 19:59 Last Admin: 06/20/17 12:13 Dose: 1 tab Pantoprazole Sodium (Protonix Susp) 40 mg PO 0600 [facility] Last Admin: 06/20/17 05:20 Dose: 40 mg - Labs Labs: 06/20/17 06:28 06/20/17 06:28 PT 11.7 SECONDS (9.7-12.2) 06/17/17 21:16 INR 1.0 06/17/17 21:16 APTT 30 SECONDS (21-34) 06/17/17 21:16 - Constitutional Appears: Non-toxic, Chronically Ill - Head Exam Head Exam: NORMOCEPHALIC - Eye Exam Eye Exam: PERRL - ENT Exam ENT Exam: Mucous Membranes Dry - Neck Exam Neck Exam: absent: Lymphadenopathy - Respiratory Exam Respiratory Exam: Decreased Breath Sounds - Cardiovascular Exam Cardiovascular Exam: REGULAR RHYTHM - GI/Abdominal Exam GI & Abdominal Exam: Distended, Soft - Rectal Exam Rectal Exam: Deferred - Exam Exam: NORMAL INSPECTION - Extremities Exam Extremities Exam: absent: Pedal Edema - Back Exam Back Exam: absent: CVA tenderness (L), CVA tenderness (R) - Neurological Exam Neurological Exam: Alert, Awake, Oriented x3 Assessment and Plan (1) COPD exacerbation Status: Acute (2) Chronic congestive heart failure Status: Acute (3) Ketoacidosis in diabetes mellitus Status: Active - Assessment and Plan (Free Text) Assessment: cont rx as ordered
--- NOTE | 2017-06-20 18:56 | PN ---
DATE: SUBJECTIVE: The patient was seen. The patient was crying today when seen, she wants to go home. The patient was conversing with doctor in Mongolian that she wants to go home because she wants to attend her granddaughter's fifth birthday, but the patient is still medically unstable to go home. The patient is off psych meds and seems to be doing well. Her breathing seems to be much improved. The patient is back on a trach collar. PHYSICAL EXAMINATION: VITAL SIGNS: Temperature is 98.5, pulse 97, blood pressure 139/79, respirations 24, oxygen saturation is 100%. REVIEW OF SYSTEMS: CONSTITUTIONAL: Alert and oriented x3, crying in her room, in ICU. SKIN: No diaphoresis. HEENT: No headache. No dizziness. NECK: Supple. Has a trach collar. RESPIRATORY: No dyspnea. CARDIOVASCULAR: No chest pain. GASTROINTESTINAL: She is eating well. EXTREMITIES: Moving extremities. MUSCULOSKELETAL: Feels weak. NEUROLOGIC: Alert and oriented x3. GENITOURINARY: No dysuria. MENTAL STATUS EXAMINATION: An obese female, who looks stated age, alert and oriented x3, trach collar, speaks in whispers at times. Affect is reactive. Mood is tearful, depressed, anxious. The patient wants to go home. Thought process, coherent. Thought content, no psychosis. No suicidal or homicidal ideation. The patient has been off psych meds for a few days due to respiratory problems. Attention and memory seem to be fair. Insight and judgment fair. Impulse control is fair. IMPRESSION: History of schizoaffective disorder, bipolar type, history of respiratory failure, status post tracheostomy placement, history of chronic obstructive pulmonary disease, obesity, diabetes, hypertension, chronic back pain. PLAN AND RECOMMENDATIONS: The patient is seen, meds reviewed. Continue present management. For now, I will keep her off psych meds. We will try to reintroduce it slowly once the patient is more medically stable. The patient is not having any psychotic symptoms. She is tearful because she wants to go home. Other than that, no exacerbation of her psychotic symptoms despite off her psych meds. Wellington Dejesus MD [facility] # [id number]
[2017-06-20] MEDS: (Lantus) Insulin Glargine, Recombinant SC SCH (22:18)
[2017-06-20] MEDS ORDERED: DiphenhydrAMINE 50 mg/ml Inj IVP ONE (23:45)
--- NOTE | 2017-06-21 00:02 | CP.PCM.PN ---
Subjective - Date & Time of Evaluation Date of Evaluation: 06/20/17 Time of Evaluation: 19:00 - Subjective Subjective: pt is seen and evaluated today Objective - Vital Signs/Intake and Output Vital Signs (last 24 hours): Temp Pulse Resp BP Pulse Ox 99.1 F 90 20 124/82 97 06/20/17 18:26 06/20/17 18:26 06/20/17 18:26 06/20/17 18:26 06/20/17 18:26 Intake and Output: 06/20/17 06/21/17 18:59 06:59 Intake Total 993 350 Output Total 600 Balance 393 350 - Medications Medications: Current Medications Al Hydrox/Mg Hydrox/Simethicone (Maalox 30 Ml) 30 ml PO TID PRN PRN Reason: Indigestion / Heartburn Last Admin: 06/19/17 14:03 Dose: 30 ml Albuterol/Ipratropium (Duoneb 3 Mg/0.5 Mg (3 Ml) Ud) 3 ml INH RQ6 [facility] Last Admin: 06/20/17 13:35 Dose: 3 ml Enoxaparin Sodium (Lovenox) 40 mg SC DAILY [facility] Last Admin: 06/20/17 09:49 Dose: 40 mg Gabapentin (Neurontin) 800 mg PO TID [facility] Last Admin: 06/20/17 17:46 Dose: 800 mg Meropenem (Merrem Iv 1 Gm Premix) 50 mls @ 100 mls/hr IVPB Q8 [facility] PRN Reason: Protocol Last Admin: 06/20/17 22:17 Dose: 100 mls/hr Vancomycin/Sodium Chloride (Vancomycin 1 Gm/Ns 200 Ml) 1 gm in 200 mls @ 133 mls/hr IVPB Q12H [facility] PRN Reason: Protocol Stop: 06/23/17 11:16 Last Admin: 06/20/17 22:47 Dose: 133 mls/hr Insulin Aspart (Novolog) 0 unit SC Q6H [facility] PRN Reason: Protocol Last Admin: 06/20/17 17:45 Dose: 6 unit Insulin Glargine (Lantus) 30 unit SC HS [facility] Last Admin: 06/20/17 22:18 Dose: 30 units Lactobacillus Acidophilus (Bacid Acidophilus) 1 cap PO BID [facility] Last Admin: 06/20/17 17:45 Dose: 1 cap Methylprednisolone (Solu-Medrol) 40 mg IVP DAILY [facility] Last Admin: 06/20/17 09:50 Dose: 40 mg Montelukast Sodium (Singulair) 10 mg PO HS [facility] Last Admin: 06/20/17 22:18 Dose: 10 mg Nitroglycerin (Nitrostat Sl Tab) 0.4 mg SL Q5M PRN PRN Reason: Pain, Mild (1-3) Last Admin: 06/12/17 22:51 Dose: 0.4 mg Nystatin (Nystop Topical Powder) 1 applic TOP BID [facility] Last Admin: 06/20/17 17:46 Dose: 1 applic Oxycodone/Acetaminophen (Percocet 5/325 Mg Tab) 1 tab PO Q4H PRN PRN Reason: Pain, moderate (4-7) Stop: 06/22/17 19:59 Last Admin: 06/20/17 19:14 Dose: 1 tab Pantoprazole Sodium (Protonix Susp) 40 mg PO 0600 [facility] Last Admin: 06/20/17 05:20 Dose: 40 mg - Labs Labs: 06/20/17 06:28 06/20/17 06:28 PT 11.7 SECONDS (9.7-12.2) 06/17/17 21:16 INR 1.0 06/17/17 21:16 APTT 30 SECONDS (21-34) 06/17/17 21:16
[2017-06-21] MEDS: (Novolog) Insulin Aspart, Recombinant 100 u/ml 10 ml vial SC SCH ×4 (00:13→18:22)
[2017-06-21] MEDS: Albuterol-Ipratrop 3 mg / 0.5 (3 ml) UD INH SCH ×4 (01:39→19:22)
[2017-06-21] MEDS ORDERED: DiphenhydrAMINE 50 mg/ml Inj IVP STA (02:21)
[2017-06-21] MEDS: Meropenem IV 1 gm in NS 50 ML IVPB SCH ×3 (05:14→21:55)
[2017-06-21] MEDS: Pantoprazole 40 mg Susp UD PO SCH (05:14)
[2017-06-21] MEDS: MethylPREDNISolone 40 mg Vial IVP SCH (11:32)
[2017-06-21] MEDS: Lactobacillus Acidophilus 500 MU Cap PO SCH ×2 (11:32→18:06)
[2017-06-21] MEDS: Enoxaparin 40 mg Syringe SC SCH (11:32)
[2017-06-21] MEDS: Oxycodone/Acetaminophen 5/325 mg Tab PO PRN ×2 (11:51→21:55)
[2017-06-21] MEDS: Vancomycin 1 gm/NS 200 ml 1 GM/200 ML BAG IVPB SCH ×2 (12:55→23:07)
--- NOTE | 2017-06-21 16:40 | CP.PCM.PN ---
Subjective - Date & Time of Evaluation Date of Evaluation: 06/21/17 Time of Evaluation: 10:00 - Subjective Subjective: Patient seen and examined at bedside. ROS unobtainable due to non-fenestrated tracheostomy. The patient was tearful and indicated that she had not slept. Nursing reported that the patient has had pain with suctioning and that thick white secretions are being brought up. Assessment and Plan: 1. Possible aspiration pneumonia - Afebrile - CBC 06/21: WBC 15.6, 75.2% neutros trending down - CXR 06/17: consolidative changes in both lung bases R>L, small loculated right pleural effusion - 06/17 blood culture: gram positive cocci in clusters - 06/17 sputum culture: proteus mirabilis - robitussin - merrem, vancomycin - PICC 2. Tracheostomy complications - New tracheostomy placed by surgery - replace with fenestrated tracheostomy in the future 3. COPD Exacerbation - Saturating 92-99% - duonebs nebulizer treatments - solu-medrol q8h Objective - Vital Signs/Intake and Output Vital Signs (last 24 hours): Temp Pulse Resp BP Pulse Ox 98 F 82 95 H 118/63 20 L 06/21/17 15:48 06/21/17 15:48 06/21/17 15:48 06/21/17 15:48 06/21/17 15:48 Intake and Output: 06/21/17 06/21/17 06:59 18:59 Intake Total 350 Balance 350 - Medications Medications: Current Medications Al Hydrox/Mg Hydrox/Simethicone (Maalox 30 Ml) 30 ml PO TID PRN PRN Reason: Indigestion / Heartburn Last Admin: 06/19/17 14:03 Dose: 30 ml Albuterol/Ipratropium (Duoneb 3 Mg/0.5 Mg (3 Ml) Ud) 3 ml INH RQ6 [facility] Last Admin: 06/21/17 13:49 Dose: 3 ml Enoxaparin Sodium (Lovenox) 40 mg SC DAILY [facility] Last Admin: 06/21/17 11:32 Dose: 40 mg Gabapentin (Neurontin) 800 mg PO TID [facility] Last Admin: 06/21/17 14:30 Dose: 800 mg Meropenem (Merrem Iv 1 Gm Premix) 50 mls @ 100 mls/hr IVPB Q8 [facility] PRN Reason: Protocol Last Admin: 06/21/17 14:30 Dose: 100 mls/hr Vancomycin/Sodium Chloride (Vancomycin 1 Gm/Ns 200 Ml) 1 gm in 200 mls @ 133 mls/hr IVPB Q12H [facility] PRN Reason: Protocol Stop: 06/23/17 11:16 Last Admin: 06/21/17 12:55 Dose: 133 mls/hr Insulin Aspart (Novolog) 0 unit SC Q6H [facility] PRN Reason: Protocol Last Admin: 06/21/17 12:54 Dose: 2 unit Insulin Glargine (Lantus) 30 unit SC HS [facility] Last Admin: 06/20/17 22:18 Dose: 30 units Lactobacillus Acidophilus (Bacid Acidophilus) 1 cap PO BID [facility] Last Admin: 06/21/17 11:32 Dose: 1 cap Methylprednisolone (Solu-Medrol) 40 mg IVP DAILY [facility] Last Admin: 06/21/17 11:32 Dose: 40 mg Montelukast Sodium (Singulair) 10 mg PO [facility] Last Admin: 06/20/17 22:18 Dose: 10 mg Nitroglycerin (Nitrostat Sl Tab) 0.4 mg SL Q5M PRN PRN Reason: Pain, Mild (1-3) Last Admin: 06/12/17 22:51 Dose: 0.4 mg Nystatin (Nystop Topical Powder) 1 applic TOP BID [facility] Last Admin: 06/21/17 11:33 Dose: 1 applic Oxycodone/Acetaminophen (Percocet 5/325 Mg Tab) 1 tab PO Q4H PRN PRN Reason: Pain, moderate (4-7) Stop: 06/22/17 19:59 Last Admin: 06/21/17 11:51 Dose: 1 tab Pantoprazole Sodium (Protonix Susp) 40 mg PO 0600 [facility] Last Admin: 06/21/17 05:14 Dose: 40 mg - Labs Labs: 06/20/17 06:28 06/20/17 06:28 PT 11.7 SECONDS (9.7-12.2) 06/17/17 21:16 INR 1.0 06/17/17 21:16 APTT 30 SECONDS (21-34) 06/17/17 21:16
--- NOTE | 2017-06-21 21:06 | PN ---
DATE: 06/21/17 SUBJECTIVE: The patient was seen. The patient was transferred from the ICU to regular floor. The patient is complaining of increased anxiety and trouble sleeping. She was taken off psych medications due to respiratory problems but now patient has trach collar. The patient is asking something for anxiety. I will put her back on Ativan p.r.n. as ordered before. The patient still wants to go home to attend her granddaughter's fifth birthday. PHYSICAL EXAMINATION: VITAL SIGNS: Temperature 98, pulse 82, blood pressure 118/63, respirations 20, oxygen saturations is 95%. REVIEW OF SYSTEMS: GENERAL: The patient is alert, verbal, seen in her room, pleasant in approach, speaks in whispers. SKIN: No diaphoresis. HEENT: No headache. No dizziness. NECK: Has trach collar. RESPIRATORY: Has chronic dyspnea. CARDIOVASCULAR: No chest pain. GASTROINTESTINAL: She is eating well. EXTREMITIES: Moving extremities. MUSCULOSKELETAL: Feels weak. NEURO: Alert and oriented x3. : No urinary problems. No dysuria, no hematuria. MENTAL STATUS EXAMINATION: An obese female, who looks stated age. Mood is anxious, reactive x3. Speech: The patient converses in Bengali but speaks in whisper due to her trach. Affect is restricted. Thought process coherent. Thought content, complaining of anxiety and trouble sleeping. No psychosis. No suicidal or homicidal ideation. Attention and memory seem to be fair. Insight and judgement fair. Impulse control is fair. IMPRESSION: History of schizoaffective disorder, bipolar type; history of respiratory failure, status post trach; chronic obstructive pulmonary disease; diabetes; hypertension; obesity. PLAN AND RECOMMENDATIONS: The patient was seen, meds reviewed. Continue present management. We will start her Ativan 2 mg p.o. bid p.r.n. for anxiety. We will hold off the other psych medications for now. Continue treatment plan as outlined. The patient may need to go for subacute rehab once medically cleared. Wellington Dejesus MD MTDAndres
[2017-06-21] MEDS: (Lantus) Insulin Glargine, Recombinant SC SCH (22:03)
--- NOTE | 2017-06-21 23:54 | CP.PCM.PN ---
Subjective - Date & Time of Evaluation Date of Evaluation: 06/21/17 Time of Evaluation: 17:00 - Subjective Subjective: Pt seen and examined at bedside Objective - Vital Signs/Intake and Output Vital Signs (last 24 hours): Temp Pulse Resp BP Pulse Ox 98 F 80 95 H 118/63 20 L 06/21/17 15:48 06/21/17 18:00 06/21/17 15:48 06/21/17 15:48 06/21/17 15:48 Intake and Output: 06/21/17 06/22/17 18:59 06:59 Intake Total 420 200 Balance 420 200 - Medications Medications: Current Medications Al Hydrox/Mg Hydrox/Simethicone (Maalox 30 Ml) 30 ml PO TID PRN PRN Reason: Indigestion / Heartburn Last Admin: 06/19/17 14:03 Dose: 30 ml Albuterol/Ipratropium (Duoneb 3 Mg/0.5 Mg (3 Ml) Ud) 3 ml INH RQ6 [facility] Last Admin: 06/21/17 19:22 Dose: 3 ml Enoxaparin Sodium (Lovenox) 40 mg SC DAILY [facility] Last Admin: 06/21/17 11:32 Dose: 40 mg Gabapentin (Neurontin) 800 mg PO TID [facility] Last Admin: 06/21/17 18:06 Dose: 800 mg Meropenem (Merrem Iv 1 Gm Premix) 50 mls @ 100 mls/hr IVPB Q8 [facility] PRN Reason: Protocol Last Admin: 06/21/17 21:55 Dose: 100 mls/hr Vancomycin/Sodium Chloride (Vancomycin 1 Gm/Ns 200 Ml) 1 gm in 200 mls @ 133 mls/hr IVPB Q12H [facility] PRN Reason: Protocol Stop: 06/23/17 11:16 Last Admin: 06/21/17 23:07 Dose: 133 mls/hr Insulin Aspart (Novolog) 0 unit SC Q6H [facility] PRN Reason: Protocol Last Admin: 06/21/17 18:22 Dose: 3 unit Insulin Glargine (Lantus) 30 unit SC HS [facility] Last Admin: 06/21/17 22:03 Dose: 30 units Lactobacillus Acidophilus (Bacid Acidophilus) 1 cap PO BID [facility] Last Admin: 06/21/17 18:06 Dose: 1 cap Lorazepam (Ativan) 2 mg PO BID PRN PRN Reason: Anxiety Last Admin: 06/21/17 18:06 Dose: 2 mg Methylprednisolone (Solu-Medrol) 40 mg IVP DAILY [facility] Last Admin: 06/21/17 11:32 Dose: 40 mg Montelukast Sodium (Singulair) 10 mg PO HS [facility] Last Admin: 06/21/17 21:55 Dose: 10 mg Nitroglycerin (Nitrostat Sl Tab) 0.4 mg SL Q5M PRN PRN Reason: Pain, Mild (1-3) Last Admin: 06/12/17 22:51 Dose: 0.4 mg Nystatin (Nystop Topical Powder) 1 applic TOP BID [facility] Last Admin: 06/21/17 18:13 Dose: 1 applic Oxycodone/Acetaminophen (Percocet 5/325 Mg Tab) 1 tab PO Q4H PRN PRN Reason: Pain, moderate (4-7) Stop: 06/22/17 19:59 Last Admin: 06/21/17 21:55 Dose: 1 tab Pantoprazole Sodium (Protonix Susp) 40 mg PO 0600 [facility] Last Admin: 06/21/17 05:14 Dose: 40 mg - Labs Labs: 06/20/17 06:28 06/20/17 06:28 PT 11.7 SECONDS (9.7-12.2) 06/17/17 21:16 INR 1.0 06/17/17 21:16 APTT 30 SECONDS (21-34) 06/17/17 21:16
[2017-06-22] MEDS: (Novolog) Insulin Aspart, Recombinant 100 u/ml 10 ml vial SC SCH ×5 (00:01→23:56)
[2017-06-22] MEDS ORDERED: DiphenhydrAMINE 50 mg/ml Inj IVP STA (00:35)
[2017-06-22] MEDS: Albuterol-Ipratrop 3 mg / 0.5 (3 ml) UD INH SCH ×4 (01:41→20:12)
[2017-06-22] MEDS: Meropenem IV 1 gm in NS 50 ML IVPB SCH ×3 (05:25→21:43)
[2017-06-22] MEDS: Pantoprazole 40 mg Susp UD PO SCH (06:01)
[2017-06-22 08:10] LABS: BASO # 0.1 K/uL (0.0-0.2); BASO % 0.4 % (0.0-2.0); EOS # 0.4 K/uL (0.0-0.7); EOS % 2.8 % (0.0-4.0); HEMOGLOBIN 13.2 g/dL (11.0-16.0); LYMPH # 3.2 K/uL (1.0-4.3); LYMPH % 23.3 % (20.0-40.0); MEAN CELL VOLUME 82.6 fL (81.0-99.0); MEAN CORPUSCULAR HEMOGLOBIN 27.4 pg (27.0-31.0); MEAN CORPUSCULAR HGB CONC 33.1 g/dL (33.0-37.0); MEAN PLATELET VOLUME 8.2 fL (7.2-11.7); MONO # 1.1 K/uL (0.0-0.8); NEUT # 8.9 K/uL (1.8-7.0); NEUT % 65.5 % (50.0-75.0); NRBC % 0.1 % (0.0-2.0); RBC 4.82 Mil/uL (3.80-5.20); RED CELL DISTRIBUTION WIDTH 15.5 % (11.5-14.5); WHITE BLOOD COUNT 13.5 K/uL (4.8-10.8)
[2017-06-22 08:23] LABS: ALB/GLOB RATIO 0.9 (1.0-2.1); ALBUMIN 3.8 g/dL (3.5-5.0); ALT/SGPT 9 U/L (9-52); AST/SGOT 23 U/L (14-36); BLOOD UREA NITROGEN 21 mg/dL (7-17); CALCIUM 9.1 mg/dl (8.6-10.4); GFR AFRICAN-AMERICAN > 60; GFR NON-AFRICAN AMERICAN > 60
[2017-06-22] MEDS: MethylPREDNISolone 40 mg Vial IVP SCH (10:07)
[2017-06-22] MEDS: Enoxaparin 40 mg Syringe SC SCH (10:09)
[2017-06-22] MEDS: Lactobacillus Acidophilus 500 MU Cap PO SCH ×2 (10:11→18:13)
[2017-06-22] MEDS: Vancomycin 1 gm/NS 200 ml 1 GM/200 ML BAG IVPB SCH ×2 (10:23→22:51)
[2017-06-22] MEDS: Oxycodone/Acetaminophen 5/325 mg Tab PO PRN ×2 (10:29→18:01)
--- NOTE | 2017-06-22 13:11 | CP.PCM.PN ---
Subjective - Date & Time of Evaluation Date of Evaluation: 06/22/17 Time of Evaluation: 10:00 - Subjective Subjective: Patient seen and examined at bedside. ROS unobtainable due to non-fenestrated tracheostomy. The patient again seemed frustrated and tearful regarding her tracheostomy, but noted that she did sleep ok last night. Assessment and Plan: 1. Possible aspiration pneumonia - Afebrile - CBC 06/22: WBC 13.5, 65.5% neutros trending down - CXR 06/17: consolidative changes in both lung bases R>L, small loculated right pleural effusion - 06/17 blood culture: gram positive cocci in clusters - 06/17 sputum culture: proteus mirabilis - merrem, vancomycin 2. Tracheostomy complications - New tracheostomy placed by surgery - replace with fenestrated tracheostomy in the future 3. COPD Exacerbation - Saturating 92-99% - duonebs - singulair - nebulizer treatments - solu-medrol q8h 4. CHF exacerbation - diuresis with lasix Objective - Vital Signs/Intake and Output Vital Signs (last 24 hours): Temp Pulse Resp BP Pulse Ox 98.3 F 85 20 142/85 94 L 06/22/17 07:28 06/22/17 07:28 06/22/17 07:28 06/22/17 07:28 06/22/17 07:28 Intake and Output: 06/22/17 06/22/17 06:59 18:59 Intake Total 200 Balance 200 - Medications Medications: Current Medications Al Hydrox/Mg Hydrox/Simethicone (Maalox 30 Ml) 30 ml PO TID PRN PRN Reason: Indigestion / Heartburn Last Admin: 06/19/17 14:03 Dose: 30 ml Albuterol/Ipratropium (Duoneb 3 Mg/0.5 Mg (3 Ml) Ud) 3 ml INH RQ6 [facility] Last Admin: 06/22/17 07:17 Dose: 3 ml Enoxaparin Sodium (Lovenox) 40 mg SC DAILY [facility] Last Admin: 06/22/17 10:09 Dose: 40 mg Gabapentin (Neurontin) 800 mg PO TID [facility] Last Admin: 06/22/17 10:11 Dose: 800 mg Meropenem (Merrem Iv 1 Gm Premix) 50 mls @ 100 mls/hr IVPB Q8 [facility] PRN Reason: Protocol Last Admin: 06/22/17 05:25 Dose: 100 mls/hr Vancomycin/Sodium Chloride (Vancomycin 1 Gm/Ns 200 Ml) 1 gm in 200 mls @ 133 mls/hr IVPB Q12H [facility] PRN Reason: Protocol Stop: 06/23/17 11:16 Last Admin: 06/22/17 10:23 Dose: 133 mls/hr Insulin Aspart (Novolog) 0 unit SC Q6H [facility] PRN Reason: Protocol Last Admin: 06/22/17 06:09 Dose: Not Given Insulin Glargine (Lantus) 30 unit SC [facility] Last Admin: 06/21/17 22:03 Dose: 30 units Lactobacillus Acidophilus (Bacid Acidophilus) 1 cap PO BID [facility] Last Admin: 06/22/17 10:11 Dose: 1 cap Lorazepam (Ativan) 2 mg PO BID PRN PRN Reason: Anxiety Last Admin: 06/22/17 06:01 Dose: 2 mg Methylprednisolone (Solu-Medrol) 40 mg IVP DAILY [facility] Last Admin: 06/22/17 10:07 Dose: 40 mg Montelukast Sodium (Singulair) 10 mg PO HS [facility] Last Admin: 06/21/17 21:55 Dose: 10 mg Nitroglycerin (Nitrostat Sl Tab) 0.4 mg SL Q5M PRN PRN Reason: Pain, Mild (1-3) Last Admin: 06/12/17 22:51 Dose: 0.4 mg Nystatin (Nystop Topical Powder) 1 applic TOP BID [facility] Last Admin: 06/22/17 10:11 Dose: 1 applic Oxycodone/Acetaminophen (Percocet 5/325 Mg Tab) 1 tab PO Q4H PRN PRN Reason: Pain, moderate (4-7) Stop: 06/22/17 19:59 Last Admin: 06/22/17 10:29 Dose: 1 tab Pantoprazole Sodium (Protonix Susp) 40 mg PO 0600 [facility] Last Admin: 06/22/17 06:01 Dose: 40 mg - Labs Labs: 06/22/17 08:02 06/22/17 08:02 PT 11.7 SECONDS (9.7-12.2) 06/17/17 21:16 INR 1.0 06/17/17 21:16 APTT 30 SECONDS (21-34) 06/17/17 21:16
--- NOTE | 2017-06-22 16:21 | CP.PCM.PN ---
Subjective - Date & Time of Evaluation Date of Evaluation: 06/22/17 Time of Evaluation: 09:00 - Subjective Subjective: mdro sputum iv rx in progress Objective - Vital Signs/Intake and Output Vital Signs (last 24 hours): Temp Pulse Resp BP Pulse Ox 98.6 F 66 20 129/84 95 06/22/17 15:00 06/22/17 15:00 06/22/17 15:00 06/22/17 15:00 06/22/17 15:00 Intake and Output: 06/22/17 06/22/17 06:59 18:59 Intake Total 200 490 Balance 200 490 - Medications Medications: Current Medications Al Hydrox/Mg Hydrox/Simethicone (Maalox 30 Ml) 30 ml PO TID PRN PRN Reason: Indigestion / Heartburn Last Admin: 06/19/17 14:03 Dose: 30 ml Albuterol/Ipratropium (Duoneb 3 Mg/0.5 Mg (3 Ml) Ud) 3 ml INH RQ6 [facility] Last Admin: 06/22/17 07:17 Dose: 3 ml Enoxaparin Sodium (Lovenox) [address] [facility] Last Admin: 06/22/17 10:09 Dose: 40 mg Gabapentin (Neurontin) 800 mg PO TID [facility] Last Admin: 06/22/17 14:47 Dose: 800 mg Meropenem (Merrem Iv 1 Gm Premix) 50 mls @ 100 mls/hr IVPB Q8 [facility] PRN Reason: Protocol Last Admin: 06/22/17 14:44 Dose: 100 mls/hr Vancomycin/Sodium Chloride (Vancomycin 1 Gm/Ns 200 Ml) 1 gm in 200 mls @ 133 mls/hr IVPB Q12H [facility] PRN Reason: Protocol Stop: 06/23/17 11:16 Last Admin: 06/22/17 10:23 Dose: 133 mls/hr Insulin Aspart (Novolog) 0 unit SC Q6H [facility] PRN Reason: Protocol Last Admin: 06/22/17 13:00 Dose: 2 unit Insulin Glargine (Lantus) 30 unit SC HS [facility] Last Admin: 06/21/17 22:03 Dose: 30 units Lactobacillus Acidophilus (Bacid Acidophilus) 1 cap PO BID [facility] Last Admin: 06/22/17 10:11 Dose: 1 cap Lorazepam (Ativan) 2 mg PO BID PRN PRN Reason: Anxiety Last Admin: 06/22/17 06:01 Dose: 2 mg Methylprednisolone (Solu-Medrol) [address] [facility] Last Admin: 06/22/17 10:07 Dose: 40 mg Montelukast Sodium (Singulair) [address] [facility] Last Admin: 06/21/17 21:55 Dose: 10 mg Nitroglycerin (Nitrostat Sl Tab) 0.4 mg SL Q5M PRN PRN Reason: Pain, Mild (1-3) Last Admin: 06/12/17 22:51 Dose: 0.4 mg Nystatin (Nystop Topical Powder) [address] [facility] Last Admin: 06/22/17 10:11 Dose: 1 applic Oxycodone/Acetaminophen (Percocet 5/325 Mg Tab) 1 tab PO Q4H PRN PRN Reason: Pain, moderate (4-7) Stop: 06/22/17 19:59 Last Admin: 06/22/17 10:29 Dose: 1 tab Pantoprazole Sodium (Protonix Susp) [address] [facility] Last Admin: 06/22/17 06:01 Dose: 40 mg Quetiapine Fumarate (Seroquel) [address] [facility] Last Admin: 06/22/17 15:00 Dose: 400 mg Trazodone HCl (Desyrel) 150 mg PO [facility] - Labs Labs: 06/22/17 08:02 06/22/17 08:02 PT 11.7 SECONDS (9.7-12.2) 06/17/17 21:16 INR 1.0 06/17/17 21:16 APTT 30 SECONDS (21-34) 06/17/17 21:16 - Constitutional Appears: Non-toxic, Chronically Ill - Head Exam Head Exam: NORMOCEPHALIC - Eye Exam Eye Exam: PERRL - ENT Exam ENT Exam: Mucous Membranes Dry - Neck Exam Neck Exam: absent: Lymphadenopathy - Respiratory Exam Respiratory Exam: Decreased Breath Sounds - Cardiovascular Exam Cardiovascular Exam: REGULAR RHYTHM - GI/Abdominal Exam GI & Abdominal Exam: Distended, Soft Assessment and Plan (1) COPD exacerbation Status: Acute (2) Chronic congestive heart failure Status: Acute (3) Ketoacidosis in diabetes mellitus Status: Active
--- NOTE | 2017-06-22 18:10 | PN ---
DATE: 06/22/2017. SUBJECTIVE: The patient was seen. The patient is complaining of increasing anxiety and trouble sleeping. She was given Benadryl last night. The patient asking to resume some of her psych meds. The patient wants to resume trazodone and Seroquel. Today, she is more alert and verbal. Speaks in whispers due to her trach collar. PHYSICAL EXAMINATION: VITAL SIGNS: Temperature 98.3, pulse 85, blood pressure 142/85, respirations 20, oxygen saturation 94%. REVIEW OF SYSTEMS: GENERAL: The patient is seen in her room, more alert and verbal, complaining of anxiety and trouble sleeping. SKIN: No diaphoresis. HEENT: No headache. No dizziness. NECK: Has a trach collar. RESPIRATORY: No dyspnea. CARDIOVASCULAR: No chest pain. GASTROINTESTINAL: Eating well. EXTREMITIES: The patient is moving her extremities. MUSCULOSKELETAL: Feels weak. NEUROLOGIC: Alert and oriented x3. GENITOURINARY: No dysuria. MENTAL STATUS EXAMINATION: An obese female, who looks stated age, alert and oriented x3. Mood is anxious and somatic. Affect is reactive. Speech spontaneous. Thought process coherent. Thought content, the patient wants to resume some of her psych meds, especially trazodone and Seroquel as well as to continue her Ativan p.r.n. Attention and memory seem to be limited. Insight and judgment limited. Impulse control is fair at this time. IMPRESSION: History of schizoaffective disorder, bipolar type as well as history of respiratory failure, status post tracheostomy collar, history of chronic obstructive pulmonary disease, congestive heart failure, diabetes, hypertension. PLAN AND RECOMMENDATIONS: The patient is seen, meds reviewed. Continue Ativan 2 mg p.o. b.i.d. p.r.n. as ordered. We will restart trazodone 150 mg at bedtime as well as Seroquel 400 mg every 12 hours. Continue treatment plan as outlined. The patient may need subacute rehab once medically cleared. Wellington Dejesus MD
[2017-06-22] MEDS: (Lantus) Insulin Glargine, Recombinant SC SCH (21:41)
[2017-06-23] MEDS: (Novolog) Insulin Aspart, Recombinant 100 u/ml 10 ml vial SC SCH ×3 (05:50→17:34)
[2017-06-23] MEDS: Meropenem IV 1 gm in NS 50 ML IVPB SCH (05:51)
[2017-06-23] MEDS: Pantoprazole 40 mg Susp UD PO SCH (05:52)
[2017-06-23 06:25] LABS: BASO % 0.1 % (0.0-2.0); EOS # 0.2 K/uL (0.0-0.7); EOS % 1.8 % (0.0-4.0); HEMOGLOBIN 13.1 g/dL (11.0-16.0); LYMPH % 27.6 % (20.0-40.0); MEAN CELL VOLUME 81.9 fL (81.0-99.0); MEAN CORPUSCULAR HEMOGLOBIN 27.8 pg (27.0-31.0); MEAN CORPUSCULAR HGB CONC 33.9 g/dL (33.0-37.0); MONO # 0.9 K/uL (0.0-0.8); NEUT # 6.9 K/uL (1.8-7.0); NEUT % 62.5 % (50.0-75.0); NRBC % 0.1 % (0.0-2.0); RBC 4.72 Mil/uL (3.80-5.20); RED CELL DISTRIBUTION WIDTH 15.2 % (11.5-14.5)
[2017-06-23 07:50] LABS: ALB/GLOB RATIO 0.9 (1.0-2.1); ALBUMIN 3.6 g/dL (3.5-5.0); ALT/SGPT 7 U/L (9-52); AST/SGOT 20 U/L (14-36); BLOOD UREA NITROGEN 20 mg/dL (7-17); CALCIUM 9.2 mg/dl (8.6-10.4); GFR AFRICAN-AMERICAN > 60; GFR NON-AFRICAN AMERICAN > 60
--- NOTE | 2017-06-23 09:06 | CP.PCM.PN ---
Subjective - Date & Time of Evaluation Date of Evaluation: 06/22/17 Time of Evaluation: 19:00 - Subjective Subjective: Pt seen and evalauted,feeling better, has some congestion and cough. trach site is clean with some frothy discharge Objective - Vital Signs/Intake and Output Vital Signs (last 24 hours): Temp Pulse Resp BP Pulse Ox 98.0 F 80 18 133/79 96 06/23/17 07:30 06/23/17 07:30 06/23/17 07:30 06/23/17 07:30 06/23/17 07:30 Intake and Output: 06/23/17 06/23/17 06:59 18:59 Intake Total 540 Balance 540 - Medications Medications: Current Medications Al Hydrox/Mg Hydrox/Simethicone (Maalox 30 Ml) 30 ml PO TID PRN PRN Reason: Indigestion / Heartburn Last Admin: 06/19/17 14:03 Dose: 30 ml Enoxaparin Sodium (Lovenox) 40 mg SC DAILY [facility] Last Admin: 06/22/17 10:09 Dose: 40 mg Gabapentin (Neurontin) 800 mg PO TID [facility] Last Admin: 06/22/17 18:15 Dose: 800 mg Meropenem (Merrem Iv 1 Gm Premix) 50 mls @ 100 mls/hr IVPB Q8 [facility] PRN Reason: Protocol Last Admin: 06/23/17 05:51 Dose: 100 mls/hr Vancomycin/Sodium Chloride (Vancomycin 1 Gm/Ns 200 Ml) 1 gm in 200 mls @ 133 mls/hr IVPB Q12H [facility] PRN Reason: Protocol Stop: 06/23/17 11:16 Last Admin: 06/22/17 22:51 Dose: 133 mls/hr Insulin Aspart (Novolog) 0 unit SC Q6H [facility] PRN Reason: Protocol Last Admin: 06/23/17 05:50 Dose: Not Given Insulin Glargine (Lantus) 30 unit SC HS [facility] Last Admin: 06/22/17 21:41 Dose: 30 units Lactobacillus Acidophilus (Bacid Acidophilus) 1 cap PO BID [facility] Last Admin: 06/22/17 18:13 Dose: 1 cap Lorazepam (Ativan) 2 mg PO BID PRN PRN Reason: Anxiety Last Admin: 06/22/17 18:00 Dose: 2 mg Methylprednisolone (Solu-Medrol) 40 mg IVP DAILY [facility] Last Admin: 06/22/17 10:07 Dose: 40 mg Montelukast Sodium (Singulair) 10 mg PO HS [facility] Last Admin: 06/22/17 21:41 Dose: 10 mg Nitroglycerin (Nitrostat Sl Tab) 0.4 mg SL Q5M PRN PRN Reason: Pain, Mild (1-3) Last Admin: 06/12/17 22:51 Dose: 0.4 mg Nystatin (Nystop Topical Powder) 1 applic TOP BID [facility] Last Admin: 06/22/17 18:14 Dose: 1 applic Pantoprazole Sodium (Protonix Susp) 40 mg PO 0600 [facility] Last Admin: 06/23/17 05:52 Dose: Not Given Quetiapine Fumarate (Seroquel) 400 mg PO Q12 [facility] Last Admin: 06/22/17 21:40 Dose: 400 mg Trazodone HCl (Desyrel) 150 mg PO [facility] Last Admin: 06/22/17 21:40 Dose: 150 mg - Labs Labs: 06/23/17 06:16 06/23/17 06:16 PT 11.7 SECONDS (9.7-12.2) 06/17/17 21:16 INR 1.0 06/17/17 21:16 APTT 30 SECONDS (21-34) 06/17/17 21:16 - Constitutional Appears: No Acute Distress - Head Exam Head Exam: ATRAUMATIC, NORMAL INSPECTION, NORMOCEPHALIC - Eye Exam Eye Exam: EOMI, Normal appearance, PERRL Pupil Exam: NORMAL ACCOMODATION, PERRL - ENT Exam ENT Exam: Mucous Membranes Moist, Normal Exam - Neck Exam Neck Exam: Full ROM, Normal Inspection. absent: Lymphadenopathy - Respiratory Exam Respiratory Exam: Decreased Breath Sounds, Wheezes, NORMAL BREATHING PATTERN - Cardiovascular Exam Cardiovascular Exam: REGULAR RHYTHM, +S1, +S2. absent: Murmur - GI/Abdominal Exam GI & Abdominal Exam: Soft, Normal Bowel Sounds. absent: Tenderness Assessment and Plan (1) COPD exacerbation Status: Acute (2) Chronic congestive heart failure Status: Acute (3) Prophylactic measure Status: Acute (4) Sepsis Status: Acute (5) Steroid-induced hyperglycemia Status: Acute
[2017-06-23] MEDS: MethylPREDNISolone 40 mg Vial IVP SCH (09:32)
[2017-06-23] MEDS: Enoxaparin 40 mg Syringe SC SCH (09:32)
[2017-06-23] MEDS: Lactobacillus Acidophilus 500 MU Cap PO SCH ×2 (09:37→17:35)
--- NOTE | 2017-06-23 09:46 | CP.PCM.PN ---
Subjective - Date & Time of Evaluation Date of Evaluation: 06/23/17 - Subjective Subjective: Pt seen and evalauted today Objective - Vital Signs/Intake and Output Vital Signs (last 24 hours): Temp Pulse Resp BP Pulse Ox 98.0 F 80 18 133/79 96 06/23/17 07:30 06/23/17 07:30 06/23/17 07:30 06/23/17 07:30 06/23/17 07:30 Intake and Output: 06/23/17 06/23/17 06:59 18:59 Intake Total 540 Balance 540 - Medications Medications: Current Medications Al Hydrox/Mg Hydrox/Simethicone (Maalox 30 Ml) 30 ml PO TID PRN PRN Reason: Indigestion / Heartburn Last Admin: 06/19/17 14:03 Dose: 30 ml Enoxaparin Sodium (Lovenox) 40 mg SC DAILY [facility] Last Admin: 06/23/17 09:32 Dose: 40 mg Gabapentin (Neurontin) 800 mg PO TID [facility] Last Admin: 06/23/17 09:37 Dose: Not Given Meropenem (Merrem Iv 1 Gm Premix) 50 mls @ 100 mls/hr IVPB Q8 [facility] PRN Reason: Protocol Last Admin: 06/23/17 05:51 Dose: 100 mls/hr Vancomycin/Sodium Chloride (Vancomycin 1 Gm/Ns 200 Ml) 1 gm in 200 mls @ 133 mls/hr IVPB Q12H [facility] PRN Reason: Protocol Stop: 06/23/17 11:16 Last Admin: 06/22/17 22:51 Dose: 133 mls/hr Insulin Aspart (Novolog) 0 unit SC Q6H [facility] PRN Reason: Protocol Last Admin: 06/23/17 05:50 Dose: Not Given Insulin Glargine (Lantus) 30 unit SC HS [facility] Last Admin: 06/22/17 21:41 Dose: 30 units Lactobacillus Acidophilus (Bacid Acidophilus) 1 cap PO BID [facility] Last Admin: 06/23/17 09:37 Dose: Not Given Lorazepam (Ativan) 2 mg PO BID PRN PRN Reason: Anxiety Last Admin: 06/22/17 18:00 Dose: 2 mg Methylprednisolone (Solu-Medrol) 40 mg IVP DAILY [facility] Last Admin: 06/23/17 09:32 Dose: 40 mg Montelukast Sodium (Singulair) 10 mg PO HS [facility] Last Admin: 06/22/17 21:41 Dose: 10 mg Nitroglycerin (Nitrostat Sl Tab) 0.4 mg SL Q5M PRN PRN Reason: Pain, Mild (1-3) Last Admin: 06/12/17 22:51 Dose: 0.4 mg Nystatin (Nystop Topical Powder) 1 applic TOP BID [facility] Last Admin: 06/23/17 09:38 Dose: 1 applic Pantoprazole Sodium (Protonix Susp) 40 mg PO 0600 [facility] Last Admin: 06/23/17 05:52 Dose: Not Given Quetiapine Fumarate (Seroquel) 400 mg PO Q12 [facility] Last Admin: 06/23/17 09:38 Dose: Not Given Trazodone HCl (Desyrel) 150 mg PO HS [facility] Last Admin: 06/22/17 21:40 Dose: 150 mg - Labs Labs: 06/23/17 06:16 06/23/17 06:16 PT 11.7 SECONDS (9.7-12.2) 06/17/17 21:16 INR 1.0 06/17/17 21:16 APTT 30 SECONDS (21-34) 06/17/17 21:16 Assessment and Plan (1) COPD exacerbation Status: Acute (2) Chronic congestive heart failure Status: Acute (3) Prophylactic measure Status: Acute (4) Sepsis Status: Acute (5) Steroid-induced hyperglycemia Status: Acute
--- NOTE | 2017-06-23 11:38 | RAD ---
HISTORY: NG tube placement COMPARISON: Comparison made with chest radiograph 06/18/2017 . FINDINGS: In situ tracheostomy tube in good position. Is also in situ NGT, the tip of which poorly seen though appears to of overlie a the mid upper abdomen below the EG junction. LUNGS: Bibasilar atelectasis and/or infiltrates left greater than right with small bilateral effusions. PLEURA: As above. No pneumothorax apparent. CARDIOVASCULAR: Heart size enlarged unchanged OSSEOUS STRUCTURES: No significant abnormalities. VISUALIZED UPPER ABDOMEN: Normal. OTHER FINDINGS: None. IMPRESSION: The tracheostomy tube and NGT as above. Bibasilar atelectasis and/or infiltrates left greater than right with small bilateral effusions.
[2017-06-23] MEDS: Vancomycin 1 gm/NS 200 ml 1 GM/200 ML BAG IVPB SCH (12:20)
[2017-06-23 15:25] VITALS: RESP 20
--- NOTE | 2017-06-23 18:20 | CP.PCM.PN ---
Subjective - Date & Time of Evaluation Date of Evaluation: 06/23/17 Time of Evaluation: 15:00 - Subjective Subjective: patient seen and examined Awake and responsive No shortness of breath Slight cough Afebrile Tolerating NGFEEDING Objective - Vital Signs/Intake and Output Vital Signs (last 24 hours): Temp Pulse Resp BP Pulse Ox 98.6 F 88 20 141/84 95 06/23/17 15:24 06/23/17 15:52 06/23/17 15:24 06/23/17 15:24 06/23/17 15:24 Intake and Output: 06/23/17 06/23/17 06:59 18:59 Intake Total 540 Balance 540 - Medications Medications: Current Medications Al Hydrox/Mg Hydrox/Simethicone (Maalox 30 Ml) 30 ml PO TID PRN PRN Reason: Indigestion / Heartburn Last Admin: 06/19/17 14:03 Dose: 30 ml Enoxaparin Sodium (Lovenox) 40 mg SC DAILY [facility] Last Admin: 06/23/17 09:32 Dose: 40 mg Gabapentin (Neurontin) 800 mg PO TID [facility] Last Admin: 06/23/17 17:35 Dose: 800 mg Insulin Aspart (Novolog) 0 unit SC Q6H [facility] PRN Reason: Protocol Last Admin: 06/23/17 17:34 Dose: 2 unit Insulin Glargine (Lantus) 30 unit SC HS [facility] Last Admin: 06/22/17 21:41 Dose: 30 units Lactobacillus Acidophilus (Bacid Acidophilus) 1 cap PO BID [facility] Last Admin: 06/23/17 17:35 Dose: 1 cap Lorazepam (Ativan) 2 mg PO BID PRN PRN Reason: Anxiety Last Admin: 06/23/17 15:33 Dose: 2 mg Methylprednisolone (Solu-Medrol) 40 mg IVP DAILY [facility] Last Admin: 06/23/17 09:32 Dose: 40 mg Montelukast Sodium (Singulair) 10 mg PO HS [facility] Last Admin: 06/22/17 21:41 Dose: 10 mg Nitroglycerin (Nitrostat Sl Tab) 0.4 mg SL Q5M PRN PRN Reason: Pain, Mild (1-3) Last Admin: 06/12/17 22:51 Dose: 0.4 mg Nystatin (Nystop Topical Powder) 1 applic TOP BID [facility] Last Admin: 06/23/17 17:35 Dose: 1 applic Pantoprazole Sodium (Protonix Susp) 40 mg PO 0600 [facility] Last Admin: 06/23/17 05:52 Dose: Not Given Quetiapine Fumarate (Seroquel) 400 mg PO Q12 [facility] Last Admin: 06/23/17 09:38 Dose: Not Given Trazodone HCl (Desyrel) 150 mg PO HS [facility] Last Admin: 06/22/17 21:40 Dose: 150 mg - Labs Labs: 06/23/17 06:16 06/23/17 06:16 PT 11.7 SECONDS (9.7-12.2) 06/17/17 21:16 INR 1.0 06/17/17 21:16 APTT 30 SECONDS (21-34) 06/17/17 21:16
--- NOTE | 2017-06-23 19:16 | PN ---
DATE: 06/23/2017. SUBJECTIVE: The patient is seen. The patient slept better last night with resumption of her trazodone and Seroquel. The patient is off Zoloft, Lamictal, and Ambien and she is only on Ativan p.r.n.. The patient still wants to go home but has agreed to go for subacute rehab considering her medical problems. The patient is still on trach. The patient willing to go to [facility] for subacute rehab once she is medically clear. She has been there so many times in the past. The patient usually does well when she is there. No psychosis noted. PHYSICAL EXAMINATION: VITAL SIGNS: Temperature is 98, pulse 81, blood pressure 133/79, respirations 18, oxygen saturation 96%. REVIEW OF SYSTEMS: GENERAL: The patient is alert and verbal, speaks in whispers, seen in her room, more alert with reduction of her psyche meds, still has trach collar. SKIN: No diaphoresis, no cyanosis. HEENT: No headache. No dizziness. NECK: Has a trach collar. RESPIRATORY: No dyspnea. CARDIOVASCULAR: No chest pain. GASTROINTESTINAL: Still has good appetite. EXTREMITIES: Moving extremities. No tremors. MUSCULOSKELETAL: Feels weak. NEUROLOGIC: Alert and oriented x3. GENITOURINARY: No dysuria. MENTAL STATUS EXAMINATION: An obese female, who looks stated age, alert and oriented x3. Speaks in whispers due to her trach. Affect is reactive. Mood is calm. Thought process coherent. Thought content, no paranoia. No hallucination. The patient states she is sleeping much better. No suicidal or homicidal ideation. Attention and memory seem to be fair. Insight and judgment is fair. Impulse control is fair. IMPRESSION: Schizoaffective disorder, bipolar type as well as history of respiratory failure, status post tracheostomy placement, history of chronic obstructive pulmonary disease, diabetes, hypertension, history of obesity, pneumonia. PLAN AND RECOMMENDATIONS: The patient is seen, meds reviewed. Continue present management. We will keep patient on Ativan 2 mg p.o. p.r.n. for anxiety as well as trazodone 150 mg at bedtime, Seroquel 400 mg every 12 hours. We will hold off the rest of her psych meds. The patient seems to be doing better with the reduction of her psyche meds [facility]. She is not complaining of psychosis, no suicidal or homicidal ideation and has been compliant with meds. The patient is for subacute rehab to [facility] which is her choice, the patient has been there so many times once medically cleared. Wellington Dejesus MD
[2017-06-23] MEDS: (Lantus) Insulin Glargine, Recombinant SC SCH (21:14)
[2017-06-24] MEDS: (Novolog) Insulin Aspart, Recombinant 100 u/ml 10 ml vial SC SCH ×4 (01:00→17:19)
[2017-06-24] MEDS: Pantoprazole 40 mg Susp UD PO SCH (05:43)
[2017-06-24 07:52] LABS: HEMOGLOBIN 12.9 g/dL (11.0-16.0); MEAN CORPUSCULAR HEMOGLOBIN 27.2 pg (27.0-31.0); MEAN CORPUSCULAR HGB CONC 33.1 g/dL (33.0-37.0); MEAN PLATELET VOLUME 8.3 fL (7.2-11.7); RBC 4.75 Mil/uL (3.80-5.20); WHITE BLOOD COUNT 13.1 K/uL (4.8-10.8)
[2017-06-24 08:16] LABS: BLOOD UREA NITROGEN 18 mg/dL (7-17); CALCIUM 9.2 mg/dl (8.6-10.4); GFR AFRICAN-AMERICAN > 60; GFR NON-AFRICAN AMERICAN > 60
[2017-06-24] MEDS: Enoxaparin 40 mg Syringe SC SCH (10:06)
[2017-06-24] MEDS: Lactobacillus Acidophilus 500 MU Cap PO SCH ×2 (10:06→17:19)
--- NOTE | 2017-06-24 14:32 | CP.PCM.PN ---
Subjective - Date & Time of Evaluation Date of Evaluation: 06/24/17 Time of Evaluation: 08:00 - Subjective Subjective: Awake and responsive No shortness of breath Slight cough Afebrile Gram + bacteremia- 1/2 sets gram neg sputum IV rx in progress Objective - Vital Signs/Intake and Output Vital Signs (last 24 hours): Temp Pulse Resp BP Pulse Ox 98.2 F 87 20 129/90 97 06/24/17 07:20 06/24/17 12:09 06/24/17 07:20 06/24/17 07:20 06/24/17 07:20 Intake and Output: 06/24/17 06/24/17 06:59 18:59 Intake Total 600 500 Balance 600 500 - Medications Medications: Current Medications Al Hydrox/Mg Hydrox/Simethicone (Maalox 30 Ml) 30 ml PO TID PRN PRN Reason: Indigestion / Heartburn Last Admin: 06/19/17 14:03 Dose: 30 ml Enoxaparin Sodium (Lovenox) 40 mg SC DAILY [facility] Last Admin: 06/24/17 10:06 Dose: 40 mg Gabapentin (Neurontin) 800 mg PO TID [facility] Last Admin: 06/24/17 13:10 Dose: 800 mg Insulin Aspart (Novolog) 0 unit SC Q6H [facility] PRN Reason: Protocol Last Admin: 06/24/17 12:10 Dose: Not Given Insulin Glargine (Lantus) 30 unit SC [facility] Last Admin: 06/23/17 21:14 Dose: 30 units Lactobacillus Acidophilus (Bacid Acidophilus) 1 cap PO BID [facility] Last Admin: 06/24/17 10:06 Dose: 1 cap Lorazepam (Ativan) 2 mg PO BID PRN PRN Reason: Anxiety Last Admin: 06/23/17 15:33 Dose: 2 mg Montelukast Sodium (Singulair) 10 mg PO [facility] Last Admin: 06/23/17 21:14 Dose: 10 mg Nitroglycerin (Nitrostat Sl Tab) 0.4 mg SL Q5M PRN PRN Reason: Pain, Mild (1-3) Last Admin: 06/12/17 22:51 Dose: 0.4 mg Nystatin (Nystop Topical Powder) 1 applic TOP BID [facility] Last Admin: 06/24/17 10:07 Dose: 1 applic Pantoprazole Sodium (Protonix Susp) 40 mg PO 0600 [facility] Last Admin: 06/24/17 05:43 Dose: 40 mg Prednisone (Prednisone Tab) 20 mg PO DAILY [facility] Last Admin: 06/24/17 10:06 Dose: 20 mg Quetiapine Fumarate (Seroquel) 400 mg PO Q12 [facility] Last Admin: 06/24/17 10:06 Dose: 400 mg Trazodone HCl (Desyrel) 150 mg PO HS [facility] Last Admin: 06/23/17 21:14 Dose: 150 mg - Labs Labs: 06/24/17 07:44 06/24/17 07:44 PT 11.7 SECONDS (9.7-12.2) 06/17/17 21:16 INR 1.0 06/17/17 21:16 APTT 30 SECONDS (21-34) 06/17/17 21:16 Assessment and Plan (1) COPD exacerbation Status: Acute (2) Chronic congestive heart failure Status: Acute (3) Ketoacidosis in diabetes mellitus Status: Active
[2017-06-24] MEDS: Vancomycin 1 gm/NS 200 ml 1 GM/200 ML BAG IVPB SCH (15:02)
[2017-06-24] MEDS: (Lantus) Insulin Glargine, Recombinant SC SCH (21:12)
[2017-06-24] MEDS: Meropenem 500 MG in Sodium Chloride 0.9% 100 ML IVPB SCH (21:18)
[2017-06-25] MEDS: (Novolog) Insulin Aspart, Recombinant 100 u/ml 10 ml vial SC SCH ×5 (00:48→23:30)
--- NOTE | 2017-06-25 00:50 | CP.PCM.PN ---
Subjective - Date & Time of Evaluation Date of Evaluation: 06/24/17 Time of Evaluation: 20:40 - Subjective Subjective: Pt seen and examined at bedside Objective - Vital Signs/Intake and Output Vital Signs (last 24 hours): Temp Pulse Resp BP Pulse Ox 98.9 F 80 20 126/81 95 06/24/17 15:52 06/24/17 16:00 06/24/17 15:52 06/24/17 15:52 06/24/17 15:52 Intake and Output: 06/24/17 06/25/17 18:59 06:59 Intake Total 500 Balance 500 - Medications Medications: Current Medications Al Hydrox/Mg Hydrox/Simethicone (Maalox 30 Ml) 30 ml PO TID PRN PRN Reason: Indigestion / Heartburn Last Admin: 06/19/17 14:03 Dose: 30 ml Enoxaparin Sodium (Lovenox) 40 mg SC DAILY [facility] Last Admin: 06/24/17 10:06 Dose: 40 mg Gabapentin (Neurontin) 800 mg PO TID [facility] Last Admin: 06/24/17 17:19 Dose: 800 mg Vancomycin/Sodium Chloride (Vancomycin 1 Gm/Ns 200 Ml) 1 gm in 200 mls @ 133.333 mls/hr IVPB Q12H [facility] PRN Reason: Protocol Stop: 06/29/17 15:01 Last Admin: 06/24/17 15:02 Dose: 133.333 mls/hr Meropenem 500 mg/ Sodium (Chloride) 100 mls @ 100 mls/hr IVPB Q8 [facility] PRN Reason: Protocol Last Admin: 06/24/17 21:18 Dose: 100 mls/hr Insulin Aspart (Novolog) 0 unit SC Q6H [facility] PRN Reason: Protocol Last Admin: 06/25/17 00:48 Dose: Not Given Insulin Glargine (Lantus) 30 unit SC HS [facility] Last Admin: 06/24/17 21:12 Dose: 30 units Lactobacillus Acidophilus (Bacid Acidophilus) 1 cap PO BID [facility] Last Admin: 06/24/17 17:19 Dose: 1 cap Lorazepam (Ativan) 2 mg PO BID PRN PRN Reason: Anxiety Last Admin: 06/24/17 17:27 Dose: 2 mg Montelukast Sodium (Singulair) 10 mg PO [facility] Last Admin: 06/24/17 21:14 Dose: 10 mg Nitroglycerin (Nitrostat Sl Tab) 0.4 mg SL Q5M PRN PRN Reason: Pain, Mild (1-3) Last Admin: 06/12/17 22:51 Dose: 0.4 mg Nystatin (Nystop Topical Powder) 1 applic TOP BID [facility] Last Admin: 06/24/17 20:26 Dose: Not Given Pantoprazole Sodium (Protonix Susp) 40 mg PO 0600 [facility] Last Admin: 06/24/17 05:43 Dose: 40 mg Prednisone (Prednisone Tab) 20 mg PO DAILY [facility] Last Admin: 06/24/17 10:06 Dose: 20 mg Quetiapine Fumarate (Seroquel) 400 mg PO Q12 [facility] Last Admin: 06/24/17 21:14 Dose: 400 mg Trazodone HCl (Desyrel) 150 mg PO HS [facility] Last Admin: 06/24/17 21:17 Dose: 150 mg - Labs Labs: 06/24/17 07:44 06/24/17 07:44 PT 11.7 SECONDS (9.7-12.2) 06/17/17 21:16 INR 1.0 06/17/17 21:16 APTT 30 SECONDS (21-34) 06/17/17 21:16 Assessment and Plan (1) COPD exacerbation Status: Acute (2) Chronic congestive heart failure Status: Acute (3) Prophylactic measure Status: Acute (4) Sepsis Status: Acute (5) Steroid-induced hyperglycemia Status: Acute
[2017-06-25] MEDS: Vancomycin 1 gm/NS 200 ml 1 GM/200 ML BAG IVPB SCH ×2 (02:17→14:53)
[2017-06-25] MEDS: Meropenem 500 MG in Sodium Chloride 0.9% 100 ML IVPB SCH ×3 (05:51→21:33)
[2017-06-25] MEDS: Pantoprazole 40 mg Susp UD PO SCH (05:51)
[2017-06-25] MEDS: Lactobacillus Acidophilus 500 MU Cap PO SCH ×2 (09:36→17:55)
[2017-06-25] MEDS: Enoxaparin 40 mg Syringe SC SCH (09:39)
--- NOTE | 2017-06-25 16:08 | CP.PCM.PN ---
Subjective - Date & Time of Evaluation Date of Evaluation: 06/25/17 Time of Evaluation: 10:20 - Subjective Subjective: Patient seen and examined at bedside. Patient nonverbal due to tracheostomy but able to gesture and answer questions with nods. Afebrile. Denies shortness of breath. NG tube out, patient would like to try eating. Will have respiratory therapist trach deflate cuff and cap the trach, monitor patient. Assessment and Plan: 1. Possible aspiration pneumonia, resolving 2. Tracheostomy complications - New tracheostomy placed by surgery - will start weaning 3. COPD Exacerbation - Saturating 92-99% - singulair - nebulizer treatments - solu-medrol q8h Objective - Vital Signs/Intake and Output Vital Signs (last 24 hours): Temp Pulse Resp BP Pulse Ox 98.1 F 77 20 119/79 98 06/25/17 08:09 06/25/17 08:09 06/25/17 08:09 06/25/17 08:09 06/25/17 08:09 Intake and Output: 06/25/17 06/25/17 06:59 18:59 Intake Total 400 3350 Balance 400 3350 - Medications Medications: Current Medications Al Hydrox/Mg Hydrox/Simethicone (Maalox 30 Ml) 30 ml PO TID PRN PRN Reason: Indigestion / Heartburn Last Admin: 06/19/17 14:03 Dose: 30 ml Enoxaparin Sodium (Lovenox) 40 mg SC DAILY [facility] Last Admin: 06/25/17 09:39 Dose: 40 mg Gabapentin (Neurontin) 800 mg PO TID [facility] Last Admin: 06/25/17 13:00 Dose: 800 mg Vancomycin/Sodium Chloride (Vancomycin 1 Gm/Ns 200 Ml) 1 gm in 200 mls @ 133.333 mls/hr IVPB Q12H [facility] PRN Reason: Protocol Stop: 06/29/17 15:01 Last Admin: 06/25/17 14:53 Dose: 133.333 mls/hr Meropenem 500 mg/ Sodium (Chloride) 100 mls @ 100 mls/hr IVPB Q8 [facility] PRN Reason: Protocol Last Admin: 06/25/17 13:27 Dose: 100 mls/hr Insulin Aspart (Novolog) 0 unit SC Q6H [facility] PRN Reason: Protocol Last Admin: 06/25/17 12:40 Dose: 4 unit Insulin Glargine (Lantus) 30 unit SC [facility] Last Admin: 06/24/17 21:12 Dose: 30 units Lactobacillus Acidophilus (Bacid Acidophilus) 1 cap PO BID [facility] Last Admin: 06/25/17 09:36 Dose: 1 cap Lorazepam (Ativan) 2 mg PO BID PRN PRN Reason: Anxiety Last Admin: 06/25/17 12:42 Dose: 2 mg Montelukast Sodium (Singulair) 10 mg PO [facility] Last Admin: 06/24/17 21:14 Dose: 10 mg Nitroglycerin (Nitrostat Sl Tab) 0.4 mg SL Q5M PRN PRN Reason: Pain, Mild (1-3) Last Admin: 06/12/17 22:51 Dose: 0.4 mg Nystatin (Nystop Topical Powder) 1 applic TOP BID [facility] Last Admin: 06/25/17 09:40 Dose: 1 applic Pantoprazole Sodium (Protonix Susp) 40 mg PO 0600 [facility] Last Admin: 06/25/17 05:51 Dose: 40 mg Prednisone (Prednisone Tab) 20 mg PO DAILY [facility] Last Admin: 06/25/17 09:36 Dose: 20 mg Quetiapine Fumarate (Seroquel) 400 mg PO Q12 [facility] Last Admin: 06/25/17 09:36 Dose: 400 mg Trazodone HCl (Desyrel) 150 mg PO [facility] Last Admin: 06/24/17 21:17 Dose: 150 mg - Labs Labs: 06/24/17 07:44 06/24/17 07:44 PT 11.7 SECONDS (9.7-12.2) 06/17/17 21:16 INR 1.0 06/17/17 21:16 APTT 30 SECONDS (21-34) 06/17/17 21:16
--- NOTE | 2017-06-25 18:13 | PN ---
DATE: 06/25/17 SUBJECTIVE: The patient is seen. The patient is still not medically cleared, but more alert and still speaks in whisper. The patient seems to be doing better with the reduction of her psych meds. No psychosis. No suicidal or homicidal ideation noted. He has been compliant with meds, the patient still asking to go home but agreeable to go for subacute rehab on a short-term basis for reconditioning. VITAL SIGNS: Temperature is 98.1, pulse 77, blood pressure 119/79, respirations 20, and oxygen saturation 98%. REVIEW OF SYSTEMS: GENERAL: The patient is more alert, speaks in whisper, not in acute respiratory distress. The patient is status post trach. SKIN: No diaphoresis. HEENT: No headache or dizziness. NECK: Complaining of pain on moving her neck. The patient is status post trach. RESPIRATORY: Has chronic dyspnea. CARDIOVASCULAR: No chest pain. GASTROINTESTINAL: She is eating very well. EXTREMITIES: Moving extremities. MUSCULOSKELETAL: Feels weak. NEURO: Alert and oriented x3. GENITOURINARY: No urinary problems. MENTAL STATUS EXAMINATION: Obese female who looks stated age, oriented x3, speaks in whispers due to the trach. Affect is reactive. Mood is dysphoric but calmer. Thought process, coherent. Thought content, no psychosis. No suicidal or homicidal ideation. Attention and memory seem to be fair. Insight and judgment fair. Impulse control is fair. IMPRESSION: History of schizoaffective disorder, bipolar type, as well as well as history of respiratory failure. History of exacerbation of COPD, status post trach, history of obesity, diabetes, hypertension, history of pneumonia. PLAN/RECOMMENDATIONS The patient is seen, meds reviewed. Continue present psych meds. Continue treatment plan as outlined. The patient is awaiting medical clearance to go for subacute rehab. For now, we will keep her on this current psych medication. The patient seems to be doing better with reduction of her psych meds, psych [facility]. Wellington Dejesus MD [facility]
[2017-06-25] MEDS: Oxycodone/Acetaminophen 5/325 mg Tab PO PRN (19:55)
[2017-06-25] MEDS: (Lantus) Insulin Glargine, Recombinant SC SCH (21:33)
--- NOTE | 2017-06-25 23:23 | CP.PCM.PN ---
Subjective - Date & Time of Evaluation Date of Evaluation: 06/25/17 Time of Evaluation: 18:45 - Subjective Subjective: Patient seen and examined at bedside.feeling better, less cough, less shortness of breath. Patient nonverbal due to tracheostomy but able to gesture and answer questions with nods. Afebrile. Denies shortness of breath. NG tube out, patient would like to try eating. Will have respiratory therapist trach deflate cuff and cap the trach, monitor patient. Objective - Vital Signs/Intake and Output Vital Signs (last 24 hours): Temp Pulse Resp BP Pulse Ox 98.0 F 79 20 151/90 H 97 06/25/17 15:00 06/25/17 17:18 06/25/17 15:00 06/25/17 15:00 06/25/17 15:00 Intake and Output: 06/25/17 06/26/17 18:59 06:59 Intake Total 3350 580 Balance 3350 580 - Medications Medications: Current Medications Al Hydrox/Mg Hydrox/Simethicone (Maalox 30 Ml) 30 ml PO TID PRN PRN Reason: Indigestion / Heartburn Last Admin: 06/19/17 14:03 Dose: 30 ml Enoxaparin Sodium (Lovenox) 40 mg SC DAILY [facility] Last Admin: 06/25/17 09:39 Dose: 40 mg Gabapentin (Neurontin) 800 mg PO TID [facility] Last Admin: 06/25/17 17:55 Dose: 800 mg Vancomycin/Sodium Chloride (Vancomycin 1 Gm/Ns 200 Ml) 1 gm in 200 mls @ 133.333 mls/hr IVPB Q12H [facility] PRN Reason: Protocol Stop: 06/29/17 15:01 Last Admin: 06/25/17 14:53 Dose: 133.333 mls/hr Meropenem 500 mg/ Sodium (Chloride) 100 mls @ 100 mls/hr IVPB Q8 [facility] PRN Reason: Protocol Last Admin: 06/25/17 21:33 Dose: 100 mls/hr Insulin Aspart (Novolog) 0 unit SC Q6H [facility] PRN Reason: Protocol Last Admin: 06/25/17 17:55 Dose: 3 unit Insulin Glargine (Lantus) 30 unit SC HS [facility] Last Admin: 06/25/17 21:33 Dose: 30 units Lactobacillus Acidophilus (Bacid Acidophilus) 1 cap PO BID [facility] Last Admin: 06/25/17 17:55 Dose: 1 cap Lorazepam (Ativan) 2 mg PO BID PRN PRN Reason: Anxiety Last Admin: 06/25/17 12:42 Dose: 2 mg Montelukast Sodium (Singulair) 10 mg PO HS [facility] Last Admin: 06/25/17 21:34 Dose: 10 mg Nitroglycerin (Nitrostat Sl Tab) 0.4 mg SL Q5M PRN PRN Reason: Pain, Mild (1-3) Last Admin: 06/12/17 22:51 Dose: 0.4 mg Nystatin (Nystop Topical Powder) 1 applic TOP BID [facility] Last Admin: 06/25/17 17:57 Dose: Not Given Oxycodone/Acetaminophen (Percocet 5/325 Mg Tab) 1 tab PO Q4H PRN PRN Reason: Pain, moderate (4-7) Stop: 06/28/17 19:47 Last Admin: 06/25/17 19:55 Dose: 1 tab Pantoprazole Sodium (Protonix Susp) 40 mg PO 0600 [facility] Last Admin: 06/25/17 05:51 Dose: 40 mg Prednisone (Prednisone Tab) 20 mg PO DAILY [facility] Last Admin: 06/25/17 09:36 Dose: 20 mg Quetiapine Fumarate (Seroquel) 400 mg PO Q12 [facility] Last Admin: 06/25/17 21:34 Dose: 400 mg Trazodone HCl (Desyrel) 150 mg PO HS [facility] Last Admin: 06/25/17 21:34 Dose: 150 mg - Labs Labs: 06/24/17 07:44 06/24/17 07:44 PT 11.7 SECONDS (9.7-12.2) 06/17/17 21:16 INR 1.0 06/17/17 21:16 APTT 30 SECONDS (21-34) 06/17/17 21:16 - Constitutional Appears: No Acute Distress - Head Exam Head Exam: ATRAUMATIC, NORMAL INSPECTION, NORMOCEPHALIC - Eye Exam Eye Exam: EOMI, Normal appearance, PERRL Pupil Exam: NORMAL ACCOMODATION, PERRL - Respiratory Exam Respiratory Exam: Clear to Ausculation Bilateral, NORMAL BREATHING PATTERN - Cardiovascular Exam Cardiovascular Exam: REGULAR RHYTHM, +S1, +S2. absent: Murmur - GI/Abdominal Exam GI & Abdominal Exam: Soft, Normal Bowel Sounds. absent: Tenderness - Rectal Exam Rectal Exam: Deferred Assessment and Plan (1) COPD exacerbation Assessment & Plan: Assessment and Plan: 1. Possible aspiration pneumonia, resolving 2. Tracheostomy complications - New tracheostomy placed by surgery - will start weaning 3. COPD Exacerbation - Saturating 92-99% - singulair - nebulizer treatments - solu-medrol q8h Status: Acute (2) Chronic congestive heart failure Status: Acute (3) Prophylactic measure Assessment & Plan: maintain tracheostomy Status: Acute (4) Sepsis Assessment & Plan: antibiotics Status: Acute (5) Steroid-induced hyperglycemia Status: Acute
[2017-06-26] MEDS: Vancomycin 1 gm/NS 200 ml 1 GM/200 ML BAG IVPB SCH ×2 (02:05→14:41)
[2017-06-26] MEDS: Meropenem 500 MG in Sodium Chloride 0.9% 100 ML IVPB SCH ×3 (05:00→22:02)
[2017-06-26] MEDS: Pantoprazole 40 mg Susp UD PO SCH (05:00)
[2017-06-26] MEDS: (Novolog) Insulin Aspart, Recombinant 100 u/ml 10 ml vial SC SCH ×3 (06:24→18:04)
[2017-06-26 07:08] LABS: BASO # 0.1 K/uL (0.0-0.2); BASO % 0.4 % (0.0-2.0); EOS # 0.1 K/uL (0.0-0.7); EOS % 1.2 % (0.0-4.0); HEMOGLOBIN 12.4 g/dL (11.0-16.0); LYMPH # 3.4 K/uL (1.0-4.3); MEAN CELL VOLUME 80.6 fL (81.0-99.0); MEAN CORPUSCULAR HEMOGLOBIN 27.7 pg (27.0-31.0); MEAN CORPUSCULAR HGB CONC 34.3 g/dL (33.0-37.0); NEUT # 7.5 K/uL (1.8-7.0); NEUT % 62.4 % (50.0-75.0); RBC 4.49 Mil/uL (3.80-5.20); RED CELL DISTRIBUTION WIDTH 15.2 % (11.5-14.5)
[2017-06-26 07:48] LABS: ALB/GLOB RATIO 0.9 (1.0-2.1); ALBUMIN 3.4 g/dL (3.5-5.0); ALT/SGPT 9 U/L (9-52); AST/SGOT 20 U/L (14-36); BLOOD UREA NITROGEN 15 mg/dL (7-17); CALCIUM 9.1 mg/dl (8.6-10.4); GFR AFRICAN-AMERICAN > 60; GFR NON-AFRICAN AMERICAN > 60
[2017-06-26] MEDS: Enoxaparin 40 mg Syringe SC SCH (10:12)
[2017-06-26] MEDS: Lactobacillus Acidophilus 500 MU Cap PO SCH ×2 (10:13→18:04)
--- NOTE | 2017-06-26 10:59 | CP.PCM.PN ---
Subjective - Date & Time of Evaluation Date of Evaluation: 06/26/17 Time of Evaluation: 09:00 - Subjective Subjective: tolerating iiv rx orders reviewed less secretions Objective - Vital Signs/Intake and Output Vital Signs (last 24 hours): Temp Pulse Resp BP Pulse Ox 97.7 F 76 20 113/79 100 06/26/17 07:15 06/26/17 07:15 06/26/17 07:15 06/26/17 07:15 06/26/17 07:15 Intake and Output: 06/26/17 06/26/17 06:59 18:59 Intake Total 580 Balance 580 - Medications Medications: Current Medications Al Hydrox/Mg Hydrox/Simethicone (Maalox 30 Ml) 30 ml PO TID PRN PRN Reason: Indigestion / Heartburn Last Admin: 06/19/17 14:03 Dose: 30 ml Enoxaparin Sodium (Lovenox) 40 mg SC DAILY [facility] Last Admin: 06/26/17 10:12 Dose: 40 mg Gabapentin (Neurontin) 800 mg PO TID [facility] Last Admin: 06/26/17 10:13 Dose: 800 mg Vancomycin/Sodium Chloride (Vancomycin 1 Gm/Ns 200 Ml) 1 gm in 200 mls @ 133.333 mls/hr IVPB Q12H [facility] PRN Reason: Protocol Stop: 06/29/17 15:01 Last Admin: 06/26/17 02:05 Dose: 133.333 mls/hr Meropenem 500 mg/ Sodium (Chloride) 100 mls @ 100 mls/hr IVPB Q8 [facility] PRN Reason: Protocol Last Admin: 06/26/17 05:00 Dose: 100 mls/hr Insulin Aspart (Novolog) 0 unit SC Q6H [facility] PRN Reason: Protocol Last Admin: 06/26/17 06:24 Dose: Not Given Insulin Glargine (Lantus) [address] [facility] Last Admin: 06/25/17 21:33 Dose: 30 units Lactobacillus Acidophilus (Bacid Acidophilus) 1 cap PO BID [facility] Last Admin: 06/26/17 10:13 Dose: 1 cap Lorazepam (Ativan) 2 mg PO BID PRN PRN Reason: Anxiety Last Admin: 06/26/17 10:19 Dose: 2 mg Montelukast Sodium (Singulair) [address] [facility] Last Admin: 06/25/17 21:34 Dose: 10 mg Nitroglycerin (Nitrostat Sl Tab) 0.4 mg SL Q5M PRN PRN Reason: Pain, Mild (1-3) Last Admin: 06/12/17 22:51 Dose: 0.4 mg Nystatin (Nystop Topical Powder) 1 applic TOP BID [facility] Last Admin: 06/26/17 10:15 Dose: 1 applic Oxycodone/Acetaminophen (Percocet 5/325 Mg Tab) 1 tab PO Q4H PRN PRN Reason: Pain, moderate (4-7) Stop: 06/28/17 19:47 Last Admin: 06/25/17 19:55 Dose: 1 tab Pantoprazole Sodium (Protonix Susp) 40 mg PO 0600 [facility] Last Admin: 06/26/17 05:00 Dose: 40 mg Prednisone (Prednisone Tab) 20 mg PO DAILY [facility] Last Admin: 06/26/17 10:13 Dose: 20 mg Quetiapine Fumarate (Seroquel) 400 mg PO Q12 [facility] Last Admin: 06/26/17 10:13 Dose: 400 mg Trazodone HCl (Desyrel) 150 mg PO HS [facility] Last Admin: 06/25/17 21:34 Dose: 150 mg - Labs Labs: 06/26/17 06:53 06/26/17 06:53 PT 11.7 SECONDS (9.7-12.2) 06/17/17 21:16 INR 1.0 06/17/17 21:16 APTT 30 SECONDS (21-34) 06/17/17 21:16 - Constitutional Appears: Non-toxic, Chronically Ill - Head Exam Head Exam: NORMOCEPHALIC - Eye Exam Eye Exam: PERRL - ENT Exam ENT Exam: Normal External Ear Exam - Neck Exam Neck Exam: absent: Lymphadenopathy - Respiratory Exam Respiratory Exam: Decreased Breath Sounds - Cardiovascular Exam Cardiovascular Exam: REGULAR RHYTHM - GI/Abdominal Exam GI & Abdominal Exam: Distended - Rectal Exam Rectal Exam: Deferred - Exam Exam: NORMAL INSPECTION - Extremities Exam Extremities Exam: absent: Pedal Edema - Back Exam Back Exam: absent: CVA tenderness (L), CVA tenderness (R) - Neurological Exam Neurological Exam: Alert, Awake, Oriented x3 - Psychiatric Exam Psychiatric exam: Normal Mood - Skin Skin Exam: Dry Assessment and Plan (1) COPD exacerbation Status: Acute (2) Chronic congestive heart failure Status: Acute (3) Ketoacidosis in diabetes mellitus Status: Active
[2017-06-26] MEDS ORDERED: Midazolam 2 MG/2 ML VIAL IVP ONE (13:59)
[2017-06-26] MEDS ORDERED: Midazolam 2 MG/2 ML VIAL ONE (14:09)
--- NOTE | 2017-06-26 15:43 | RAD ---
PROCEDURE: CHEST RADIOGRAPH, 1 VIEW HISTORY: comparison COMPARISON: 06/23/2017. FINDINGS: LUNGS: Clear. PLEURA: No pneumothorax or pleural fluid seen. CARDIOVASCULAR: No radiographic findings to suggest acute or significant cardiovascular disease. OSSEOUS STRUCTURES: No significant abnormalities. VISUALIZED UPPER ABDOMEN: Normal. OTHER FINDINGS: Stable, satisfactory position of tracheostomy device. Satisfactory position of nasogastric tube IMPRESSION: No active pulmonary disease. No significant interval change compared to the prior examination(s).
[2017-06-26] MEDS: Oxycodone/Acetaminophen 5/325 mg Tab PO PRN (15:56)
--- NOTE | 2017-06-26 16:31 | CP.PCM.PN ---
Subjective - Date & Time of Evaluation Date of Evaluation: 06/26/17 Time of Evaluation: 18:40 - Subjective Subjective: Pt seen and examined at bedside Objective - Vital Signs/Intake and Output Vital Signs (last 24 hours): Temp Pulse Resp BP Pulse Ox 98.8 F 80 20 150/84 95 06/26/17 16:00 06/26/17 16:00 06/26/17 16:00 06/26/17 16:00 06/26/17 16:00 Intake and Output: 06/26/17 06/26/17 06:59 18:59 Intake Total 580 Balance 580 - Medications Medications: Current Medications Al Hydrox/Mg Hydrox/Simethicone (Maalox 30 Ml) 30 ml PO TID PRN PRN Reason: Indigestion / Heartburn Last Admin: 06/19/17 14:03 Dose: 30 ml Albuterol/Ipratropium (Duoneb 3 Mg/0.5 Mg (3 Ml) Ud) 3 ml INH RQ6 [facility] Enoxaparin Sodium (Lovenox) 40 mg SC DAILY [facility] Last Admin: 06/26/17 10:12 Dose: 40 mg Gabapentin (Neurontin) 800 mg PO TID [facility] Last Admin: 06/26/17 13:15 Dose: 800 mg Vancomycin/Sodium Chloride (Vancomycin 1 Gm/Ns 200 Ml) 1 gm in 200 mls @ 133.333 mls/hr IVPB Q12H [facility] PRN Reason: Protocol Stop: 06/29/17 15:01 Last Admin: 06/26/17 14:41 Dose: 133.333 mls/hr Meropenem 500 mg/ Sodium (Chloride) 100 mls @ 100 mls/hr IVPB Q8 [facility] PRN Reason: Protocol Last Admin: 06/26/17 13:30 Dose: 100 mls/hr Insulin Aspart (Novolog) 0 unit SC Q6H [facility] PRN Reason: Protocol Last Admin: 06/26/17 12:41 Dose: 2 unit Insulin Glargine (Lantus) 30 unit SC HS [facility] Last Admin: 06/25/17 21:33 Dose: 30 units Lactobacillus Acidophilus (Bacid Acidophilus) 1 cap PO BID [facility] Last Admin: 06/26/17 10:13 Dose: 1 cap Lorazepam (Ativan) 2 mg PO BID PRN PRN Reason: Anxiety Last Admin: 06/26/17 10:19 Dose: 2 mg Montelukast Sodium (Singulair) 10 mg PO HS [facility] Last Admin: 06/25/17 21:34 Dose: 10 mg Nitroglycerin (Nitrostat Sl Tab) 0.4 mg SL Q5M PRN PRN Reason: Pain, Mild (1-3) Last Admin: 06/12/17 22:51 Dose: 0.4 mg Nystatin (Nystop Topical Powder) 1 applic TOP BID [facility] Last Admin: 06/26/17 10:15 Dose: 1 applic Oxycodone/Acetaminophen (Percocet 5/325 Mg Tab) 1 tab PO Q4H PRN PRN Reason: Pain, moderate (4-7) Stop: 06/28/17 19:47 Last Admin: 06/26/17 15:56 Dose: 1 tab Pantoprazole Sodium (Protonix Susp) 40 mg PO 0600 [facility] Last Admin: 06/26/17 05:00 Dose: 40 mg Prednisone (Prednisone Tab) 20 mg PO DAILY [facility] Last Admin: 06/26/17 10:13 Dose: 20 mg Quetiapine Fumarate (Seroquel) 400 mg PO Q12 [facility] Last Admin: 06/26/17 10:13 Dose: 400 mg Trazodone HCl (Desyrel) 150 mg PO HS [facility] Last Admin: 06/25/17 21:34 Dose: 150 mg - Labs Labs: 06/26/17 06:53 06/26/17 06:53 PT 11.7 SECONDS (9.7-12.2) 06/17/17 21:16 INR 1.0 06/17/17 21:16 APTT 30 SECONDS (21-34) 06/17/17 21:16 Assessment and Plan (1) COPD exacerbation Status: Acute (2) Chronic congestive heart failure Status: Acute (3) Prophylactic measure Status: Acute (4) Sepsis Status: Acute (5) Steroid-induced hyperglycemia Status: Acute
--- NOTE | 2017-06-26 17:09 | CP.PCM.PN ---
Subjective - Date & Time of Evaluation Date of Evaluation: 06/26/17 Time of Evaluation: 15:00 - Subjective Subjective: Patient seen and examined at bedside. Patient nonverbal due to tracheostomy but able to gesture and answer questions with nods. Afebrile. Assessment and Plan: 1. Possible aspiration pneumonia, resolving - Afebrile - merrem, vancomycin 2. Tracheostomy complications - replaced with fenestrated tracheostomy 3. COPD Exacerbation - Saturating 92-99% - decrease FiO2 to 30% - singulair - nebulizer treatments Objective - Vital Signs/Intake and Output Vital Signs (last 24 hours): Temp Pulse Resp BP Pulse Ox 98.8 F 80 20 150/84 95 06/26/17 16:00 06/26/17 16:00 06/26/17 16:00 06/26/17 16:00 06/26/17 16:00 Intake and Output: 06/26/17 06/26/17 06:59 18:59 Intake Total 580 Balance 580 - Medications Medications: Current Medications Al Hydrox/Mg Hydrox/Simethicone (Maalox 30 Ml) 30 ml PO TID PRN PRN Reason: Indigestion / Heartburn Last Admin: 06/19/17 14:03 Dose: 30 ml Albuterol/Ipratropium (Duoneb 3 Mg/0.5 Mg (3 Ml) Ud) 3 ml INH RQ6 [facility] Enoxaparin Sodium (Lovenox) 40 mg SC DAILY [facility] Last Admin: 06/26/17 10:12 Dose: 40 mg Gabapentin (Neurontin) 800 mg PO TID [facility] Last Admin: 06/26/17 13:15 Dose: 800 mg Vancomycin/Sodium Chloride (Vancomycin 1 Gm/Ns 200 Ml) 1 gm in 200 mls @ 133.333 mls/hr IVPB Q12H [facility] PRN Reason: Protocol Stop: 06/29/17 15:01 Last Admin: 06/26/17 14:41 Dose: 133.333 mls/hr Meropenem 500 mg/ Sodium (Chloride) 100 mls @ 100 mls/hr IVPB Q8 [facility] PRN Reason: Protocol Last Admin: 06/26/17 13:30 Dose: 100 mls/hr Insulin Aspart (Novolog) 0 unit SC Q6H [facility] PRN Reason: Protocol Last Admin: 06/26/17 12:41 Dose: 2 unit Insulin Glargine (Lantus) 30 unit SC [facility] Last Admin: 06/25/17 21:33 Dose: 30 units Lactobacillus Acidophilus (Bacid Acidophilus) 1 cap PO BID [facility] Last Admin: 06/26/17 10:13 Dose: 1 cap Lorazepam (Ativan) 2 mg PO BID PRN PRN Reason: Anxiety Last Admin: 06/26/17 10:19 Dose: 2 mg Montelukast Sodium (Singulair) 10 mg PO [facility] Last Admin: 06/25/17 21:34 Dose: 10 mg Nitroglycerin (Nitrostat Sl Tab) 0.4 mg SL Q5M PRN PRN Reason: Pain, Mild (1-3) Last Admin: 06/12/17 22:51 Dose: 0.4 mg Nystatin (Nystop Topical Powder) 1 applic TOP BID [facility] Last Admin: 06/26/17 10:15 Dose: 1 applic Oxycodone/Acetaminophen (Percocet 5/325 Mg Tab) 1 tab PO Q4H PRN PRN Reason: Pain, moderate (4-7) Stop: 06/28/17 19:47 Last Admin: 06/26/17 15:56 Dose: 1 tab Pantoprazole Sodium (Protonix Susp) 40 mg PO 0600 [facility] Last Admin: 06/26/17 05:00 Dose: 40 mg Prednisone (Prednisone Tab) 20 mg PO DAILY [facility] Last Admin: 06/26/17 10:13 Dose: 20 mg Quetiapine Fumarate (Seroquel) 400 mg PO Q12 [facility] Last Admin: 06/26/17 10:13 Dose: 400 mg Trazodone HCl (Desyrel) 150 mg PO [facility] Last Admin: 06/25/17 21:34 Dose: 150 mg - Labs Labs: 06/26/17 06:53 06/26/17 06:53 PT 11.7 SECONDS (9.7-12.2) 06/17/17 21:16 INR 1.0 06/17/17 21:16 APTT 30 SECONDS (21-34) 06/17/17 21:16
[2017-06-26] MEDS: (Lantus) Insulin Glargine, Recombinant SC SCH (21:57)
[2017-06-27] MEDS: (Novolog) Insulin Aspart, Recombinant 100 u/ml 10 ml vial SC SCH ×4 (00:05→18:23)
[2017-06-27] MEDS: Albuterol-Ipratrop 3 mg / 0.5 (3 ml) UD INH SCH ×4 (01:41→19:35)
[2017-06-27] MEDS: Vancomycin 1 gm/NS 200 ml 1 GM/200 ML BAG IVPB SCH ×2 (03:56→14:29)
[2017-06-27] MEDS: Pantoprazole 40 mg Susp UD PO SCH (05:37)
[2017-06-27] MEDS: Meropenem 500 MG in Sodium Chloride 0.9% 100 ML IVPB SCH ×3 (05:38→21:37)
[2017-06-27 07:15] LABS: ALB/GLOB RATIO 0.9 (1.0-2.1); ALBUMIN 3.4 g/dL (3.5-5.0); ALT/SGPT 10 U/L (9-52); AST/SGOT 23 U/L (14-36); BLOOD UREA NITROGEN 11 mg/dL (7-17); CALCIUM 9.3 mg/dl (8.6-10.4); GFR AFRICAN-AMERICAN > 60; GFR NON-AFRICAN AMERICAN > 60
[2017-06-27 07:22] LABS: BASO # 0.1 K/uL (0.0-0.2); BASO % 0.4 % (0.0-2.0); EOS # 0.1 K/uL (0.0-0.7); EOS % 0.6 % (0.0-4.0); HEMOGLOBIN 11.9 g/dL (11.0-16.0); LYMPH # 2.3 K/uL (1.0-4.3); MEAN CELL VOLUME 81.9 fL (81.0-99.0); MEAN CORPUSCULAR HEMOGLOBIN 27.4 pg (27.0-31.0); MEAN CORPUSCULAR HGB CONC 33.4 g/dL (33.0-37.0); MONO # 0.8 K/uL (0.0-0.8); MONO % 6.7 % (0.0-10.0); NEUT % 73.3 % (50.0-75.0); RBC 4.37 Mil/uL (3.80-5.20); RED CELL DISTRIBUTION WIDTH 15.2 % (11.5-14.5); WHITE BLOOD COUNT 12.2 K/uL (4.8-10.8)
[2017-06-27] MEDS: Lactobacillus Acidophilus 500 MU Cap PO SCH ×2 (09:18→18:30)
[2017-06-27] MEDS: Enoxaparin 40 mg Syringe SC SCH (09:18)
--- NOTE | 2017-06-27 13:33 | CP.PCM.PN ---
Subjective - Date & Time of Evaluation Date of Evaluation: 06/27/17 Time of Evaluation: 07:00 - Subjective Subjective: improving on IV rx cxr repeat neg ok to d/c antibiotics Objective - Vital Signs/Intake and Output Vital Signs (last 24 hours): Temp Pulse Resp BP Pulse Ox 98.7 F 80 20 135/80 98 06/27/17 07:20 06/27/17 07:20 06/27/17 07:20 06/27/17 07:20 06/27/17 07:20 Intake and Output: 06/27/17 06/27/17 06:59 18:59 Intake Total 350 Balance 350 - Medications Medications: Current Medications Al Hydrox/Mg Hydrox/Simethicone (Maalox 30 Ml) 30 ml PO TID PRN PRN Reason: Indigestion / Heartburn Last Admin: 06/19/17 14:03 Dose: 30 ml Albuterol/Ipratropium (Duoneb 3 Mg/0.5 Mg (3 Ml) Ud) 3 ml INH RQ6 [facility] Last Admin: 06/27/17 08:10 Dose: 3 ml Gabapentin (Neurontin) 800 mg PO TID [facility] Last Admin: 06/27/17 13:27 Dose: 800 mg Vancomycin/Sodium Chloride (Vancomycin 1 Gm/Ns 200 Ml) 1 gm in 200 mls @ 133.333 mls/hr IVPB Q12H [facility] PRN Reason: Protocol Stop: 06/29/17 15:01 Last Admin: 06/27/17 03:56 Dose: 133.333 mls/hr Meropenem 500 mg/ Sodium (Chloride) 100 mls @ 100 mls/hr IVPB Q8 [facility] PRN Reason: Protocol Last Admin: 06/27/17 13:24 Dose: 100 mls/hr Insulin Aspart (Novolog) 0 unit SC Q6H [facility] PRN Reason: Protocol Last Admin: 06/27/17 12:48 Dose: 3 unit Insulin Glargine (Lantus) 30 unit SC HS [facility] Last Admin: 06/26/17 21:57 Dose: 30 units Lactobacillus Acidophilus (Bacid Acidophilus) 1 cap PO BID [facility] Last Admin: 06/27/17 09:18 Dose: 1 cap Lorazepam (Ativan) 2 mg PO BID PRN PRN Reason: Anxiety Last Admin: 06/27/17 12:48 Dose: 2 mg Montelukast Sodium (Singulair) 10 mg PO HS [facility] Last Admin: 06/26/17 21:57 Dose: 10 mg Nitroglycerin (Nitrostat Sl Tab) 0.4 mg SL Q5M PRN PRN Reason: Pain, Mild (1-3) Last Admin: 06/12/17 22:51 Dose: 0.4 mg Nystatin (Nystop Topical Powder) 1 applic TOP BID [facility] Last Admin: 06/27/17 09:18 Dose: 1 applic Oxycodone/Acetaminophen (Percocet 5/325 Mg Tab) 1 tab PO Q4H PRN PRN Reason: Pain, moderate (4-7) Stop: 06/28/17 19:47 Last Admin: 06/26/17 15:56 Dose: 1 tab Pantoprazole Sodium (Protonix Susp) 40 mg PO 0600 [facility] Last Admin: 06/27/17 05:37 Dose: 40 mg Prednisone (Prednisone Tab) 20 mg PO DAILY [facility] Last Admin: 06/27/17 09:18 Dose: 20 mg Quetiapine Fumarate (Seroquel) 400 mg PO Q12 [facility] Last Admin: 06/27/17 09:18 Dose: 400 mg Trazodone HCl (Desyrel) 150 mg PO [facility] Last Admin: 06/26/17 21:56 Dose: 150 mg - Labs Labs: 06/27/17 06:28 06/27/17 06:28 PT 11.7 SECONDS (9.7-12.2) 06/17/17 21:16 INR 1.0 06/17/17 21:16 APTT 30 SECONDS (21-34) 06/17/17 21:16 - Constitutional Appears: Non-toxic, Chronically Ill - Head Exam Head Exam: NORMOCEPHALIC - Eye Exam Eye Exam: PERRL - ENT Exam ENT Exam: Mucous Membranes Dry - Neck Exam Neck Exam: absent: Lymphadenopathy - Respiratory Exam Respiratory Exam: Decreased Breath Sounds - Cardiovascular Exam Cardiovascular Exam: REGULAR RHYTHM - GI/Abdominal Exam GI & Abdominal Exam: Distended - Rectal Exam Rectal Exam: Deferred - Exam Exam: NORMAL INSPECTION - Extremities Exam Extremities Exam: absent: Full ROM - Back Exam Back Exam: absent: CVA tenderness (L), CVA tenderness (R) - Neurological Exam Neurological Exam: Alert, Awake Assessment and Plan (1) COPD exacerbation Status: Acute (2) Chronic congestive heart failure Status: Acute (3) Ketoacidosis in diabetes mellitus Status: Active - Assessment and Plan (Free Text) Assessment: improving on IV rx cxr repeat neg ok to d/c antibiotics
--- NOTE | 2017-06-27 14:46 | PN ---
DATE: 06/27/17 SUBJECTIVE: The patient is more alert today, but still speaks in whisper due to her trach. The patient still not medically cleared, but she states that she will go for subacute rehab if needed to. Mental status, seems to do much better with reduction of her psych meds. No psychosis noted. No suicidal or homicidal ideation. The patient is only on Ativan p.r.n., Seroquel and the patient is on trazodone. OBJECTIVE: VITAL SIGNS: Temperature is 98.7, pulse is 80, blood pressure 135/80, respirations 20, oxygen saturation 98% on trach collar. REVIEW OF SYSTEMS: CONSTITUTIONAL: The patient is alert, speaks in whisper due to her trach, not in acute respiratory distress. SKIN: No diaphoresis. HEENT: No headache or dizziness. NECK: The patient has a trach collar. RESPIRATORY: Not in acute respiratory distress. CARDIOVASCULAR: No chest pain. GASTROINTESTINAL: She is eating well. EXTREMITIES: The patient is ambulating. MUSCULOSKELETAL: Feels weak. NEUROLOGICAL: Alert and oriented x3. GENITOURINARY: No urinary problems. MENTAL STATUS EXAMINATION: Obese female who looks stated age, more alert, verbal and coherent. Speech, speaks in whisper. Affect is reactive. Mood is brighter. Thought process coherent. Thought content, no psychosis. No suicidal or homicidal ideation. Attention and memory seem to be fair. Insight and judgement fair. Impulse control is fair. IMPRESSION Schizoaffective disorder bipolar type as well as history of respiratory failure status post tracheostomy, history of chronic obstructive pulmonary disease, history of chronic back pain, hypertension, diabetes, sepsis, pneumonia, status post tracheostomy as stated. RECOMMENDATIONS The patient is seen, meds reviewed. Continue present psych meds and continue treatment plan as outlined. The patient is for subacute rehab once medically cleared. As discussed with the patient, I told her we will hold off her other medications namely Ambien, Lamictal, and Zoloft and just keep her on trazodone, Seroquel and Ativan p.r.n. The patient has been taking Ativan p.r.n. as needed. Wellington Dejesus MD MTDD
--- NOTE | 2017-06-27 16:48 | CP.PCM.PN ---
Subjective - Date & Time of Evaluation Date of Evaluation: 06/27/17 Time of Evaluation: 11:25 - Subjective Subjective: [address] [place] [address] Patient seen and examined at bedside. Patient nonverbal due to tracheostomy but able to gesture and indicate answers to questions. Afebrile. Tracheostomy switched to fenestrated tracheostomy without complications. The patient is still unable to talk with the trach capped. Assessment and Plan: 1. Possible aspiration pneumonia, resolving - Afebrile - CBC /: WBC 12.2 - moderate yellow frothy sputum still being suctioned - merrem, vancomycin (trough 5/2: 13.8) 2. Tracheostomy complications - now fenestrated tracheostomy - will plan on capping 3. COPD Exacerbation - Saturating 95-100% - FiO2 at 30% Objective - Vital Signs/Intake and Output Vital Signs (last 24 hours): Temp Pulse Resp BP Pulse Ox 98.5 F 78 20 144/86 100 06/27/17 16:00 06/27/17 16:00 06/27/17 16:00 06/27/17 16:00 06/27/17 16:00 Intake and Output: 06/27/17 06/27/17 06:59 18:59 Intake Total 350 300 Balance 350 300 - Medications Medications: Current Medications Al Hydrox/Mg Hydrox/Simethicone (Maalox 30 Ml) 30 ml PO TID PRN PRN Reason: Indigestion / Heartburn Last Admin: 06/19/17 14:03 Dose: 30 ml Albuterol/Ipratropium (Duoneb 3 Mg/0.5 Mg (3 Ml) Ud) 3 ml INH RQ6 [facility] Last Admin: 06/27/17 13:00 Dose: 3 ml Gabapentin (Neurontin) 800 mg PO TID [facility] Last Admin: 06/27/17 13:27 Dose: 800 mg Vancomycin/Sodium Chloride (Vancomycin 1 Gm/Ns 200 Ml) 1 gm in 200 mls @ 133.333 mls/hr IVPB Q12H [facility] PRN Reason: Protocol Stop: 06/29/17 15:01 Last Admin: 06/27/17 14:29 Dose: 133.333 mls/hr Meropenem 500 mg/ Sodium (Chloride) 100 mls @ 100 mls/hr IVPB Q8 [facility] PRN Reason: Protocol Last Admin: 06/27/17 13:24 Dose: 100 mls/hr Insulin Aspart (Novolog) 0 unit SC Q6H [facility] PRN Reason: Protocol Last Admin: 06/27/17 12:48 Dose: 3 unit Insulin Glargine (Lantus) 30 unit SC [facility] Last Admin: 06/26/17 21:57 Dose: 30 units Lactobacillus Acidophilus (Bacid Acidophilus) 1 cap PO BID [facility] Last Admin: 06/27/17 09:18 Dose: 1 cap Lorazepam (Ativan) 2 mg PO BID PRN PRN Reason: Anxiety Last Admin: 06/27/17 12:48 Dose: 2 mg Montelukast Sodium (Singulair) 10 mg PO [facility] Last Admin: 06/26/17 21:57 Dose: 10 mg Nitroglycerin (Nitrostat Sl Tab) 0.4 mg SL Q5M PRN PRN Reason: Pain, Mild (1-3) Last Admin: 06/12/17 22:51 Dose: 0.4 mg Nystatin (Nystop Topical Powder) 1 applic TOP BID [facility] Last Admin: 06/27/17 09:18 Dose: 1 applic Oxycodone/Acetaminophen (Percocet 5/325 Mg Tab) 1 tab PO Q4H PRN PRN Reason: Pain, moderate (4-7) Stop: 06/28/17 19:47 Last Admin: 06/26/17 15:56 Dose: 1 tab Pantoprazole Sodium (Protonix Susp) 40 mg PO 0600 [facility] Last Admin: 06/27/17 05:37 Dose: 40 mg Prednisone (Prednisone Tab) 20 mg PO DAILY [facility] Last Admin: 06/27/17 09:18 Dose: 20 mg Quetiapine Fumarate (Seroquel) 400 mg PO Q12 [facility] Last Admin: 06/27/17 09:18 Dose: 400 mg Trazodone HCl (Desyrel) 150 mg PO HS [facility] Last Admin: 06/26/17 21:56 Dose: 150 mg - Labs Labs: 06/27/17 06:28 06/27/17 06:28 PT 11.7 SECONDS (9.7-12.2) 06/17/17 21:16 INR 1.0 06/17/17 21:16 APTT 30 SECONDS (21-34) 06/17/17 21:16
[2017-06-27] MEDS: (Lantus) Insulin Glargine, Recombinant SC SCH (21:37)
--- NOTE | 2017-06-27 22:45 | CP.PCM.PN ---
Subjective - Date & Time of Evaluation Date of Evaluation: 06/27/17 Time of Evaluation: 17:35 - Subjective Subjective: Pt seen and examined, she is coughing.she is congested, no fever, chills Objective - Vital Signs/Intake and Output Vital Signs (last 24 hours): Temp Pulse Resp BP Pulse Ox 98.7 F 81 20 140/85 98 06/27/17 20:18 06/27/17 20:18 06/27/17 20:18 06/27/17 20:18 06/27/17 20:18 Intake and Output: 06/27/17 06/28/17 18:59 06:59 Intake Total 300 Balance 300 - Medications Medications: Current Medications Al Hydrox/Mg Hydrox/Simethicone (Maalox 30 Ml) 30 ml PO TID PRN PRN Reason: Indigestion / Heartburn Last Admin: 06/19/17 14:03 Dose: 30 ml Albuterol/Ipratropium (Duoneb 3 Mg/0.5 Mg (3 Ml) Ud) 3 ml INH RQ6 [facility] Last Admin: 06/27/17 19:35 Dose: 3 ml Gabapentin (Neurontin) 800 mg PO TID [facility] Last Admin: 06/27/17 18:22 Dose: 800 mg Vancomycin/Sodium Chloride (Vancomycin 1 Gm/Ns 200 Ml) 1 gm in 200 mls @ 133.333 mls/hr IVPB Q12H [facility] PRN Reason: Protocol Stop: 06/29/17 15:01 Last Admin: 06/27/17 14:29 Dose: 133.333 mls/hr Meropenem 500 mg/ Sodium (Chloride) 100 mls @ 100 mls/hr IVPB Q8 [facility] PRN Reason: Protocol Last Admin: 06/27/17 21:37 Dose: 100 mls/hr Insulin Aspart (Novolog) 0 unit SC Q6H [facility] PRN Reason: Protocol Last Admin: 06/27/17 18:23 Dose: 2 unit Insulin Glargine (Lantus) 30 unit SC HS [facility] Last Admin: 06/27/17 21:37 Dose: 30 units Lactobacillus Acidophilus (Bacid Acidophilus) 1 cap PO BID [facility] Last Admin: 06/27/17 18:30 Dose: 1 cap Lorazepam (Ativan) 2 mg PO BID PRN PRN Reason: Anxiety Last Admin: 06/27/17 12:48 Dose: 2 mg Montelukast Sodium (Singulair) 10 mg PO HS [facility] Last Admin: 06/27/17 21:37 Dose: 10 mg Nitroglycerin (Nitrostat Sl Tab) 0.4 mg SL Q5M PRN PRN Reason: Pain, Mild (1-3) Last Admin: 06/12/17 22:51 Dose: 0.4 mg Nystatin (Nystop Topical Powder) 1 applic TOP BID [facility] Last Admin: 06/27/17 18:36 Dose: 1 applic Oxycodone/Acetaminophen (Percocet 5/325 Mg Tab) 1 tab PO Q4H PRN PRN Reason: Pain, moderate (4-7) Stop: 06/28/17 19:47 Last Admin: 06/26/17 15:56 Dose: 1 tab Pantoprazole Sodium (Protonix Susp) 40 mg PO 0600 [facility] Last Admin: 06/27/17 05:37 Dose: 40 mg Prednisone (Prednisone Tab) 20 mg PO DAILY [facility] Last Admin: 06/27/17 09:18 Dose: 20 mg Quetiapine Fumarate (Seroquel) 400 mg PO Q12 [facility] Last Admin: 06/27/17 21:36 Dose: 400 mg Trazodone HCl (Desyrel) 150 mg PO HS [facility] Last Admin: 06/27/17 21:36 Dose: 150 mg - Labs Labs: 06/27/17 06:28 06/27/17 06:28 PT 11.7 SECONDS (9.7-12.2) 06/17/17 21:16 INR 1.0 06/17/17 21:16 APTT 30 SECONDS (21-34) 06/17/17 21:16 - Constitutional Appears: No Acute Distress - Head Exam Head Exam: ATRAUMATIC, NORMAL INSPECTION, NORMOCEPHALIC - Eye Exam Eye Exam: EOMI, Normal appearance, PERRL Pupil Exam: NORMAL ACCOMODATION, PERRL - Respiratory Exam Respiratory Exam: Decreased Breath Sounds, Rhonchi, Wheezes - Cardiovascular Exam Cardiovascular Exam: REGULAR RHYTHM, +S1, +S2. absent: Murmur - GI/Abdominal Exam GI & Abdominal Exam: Soft, Normal Bowel Sounds. absent: Tenderness Assessment and Plan (1) COPD exacerbation Status: Acute (2) Chronic congestive heart failure Status: Acute (3) Prophylactic measure Status: Acute (4) Sepsis Status: Acute (5) Steroid-induced hyperglycemia Status: Acute
[2017-06-28] MEDS: (Novolog) Insulin Aspart, Recombinant 100 u/ml 10 ml vial SC SCH ×3 (00:16→17:53)
[2017-06-28] MEDS: Vancomycin 1 gm/NS 200 ml 1 GM/200 ML BAG IVPB SCH ×2 (02:00→15:54)
[2017-06-28] MEDS: Albuterol-Ipratrop 3 mg / 0.5 (3 ml) UD INH SCH ×6 (02:34→20:31)
[2017-06-28] MEDS: Pantoprazole 40 mg Susp UD PO SCH (05:25)
[2017-06-28] MEDS: Meropenem 500 MG in Sodium Chloride 0.9% 100 ML IVPB SCH ×3 (05:25→22:00)
[2017-06-28 07:23] LABS: BASO % 0.3 % (0.0-2.0); EOS # 0.1 K/uL (0.0-0.7); EOS % 1.2 % (0.0-4.0); HEMOGLOBIN 12.3 g/dL (11.0-16.0); LYMPH # 2.7 K/uL (1.0-4.3); LYMPH % 24.8 % (20.0-40.0); MEAN CELL VOLUME 82.2 fL (81.0-99.0); MEAN CORPUSCULAR HEMOGLOBIN 27.7 pg (27.0-31.0); MEAN CORPUSCULAR HGB CONC 33.7 g/dL (33.0-37.0); MEAN PLATELET VOLUME 8.3 fL (7.2-11.7); MONO # 0.8 K/uL (0.0-0.8); MONO % 7.1 % (0.0-10.0); NEUT # 7.2 K/uL (1.8-7.0); NEUT % 66.6 % (50.0-75.0); NRBC % 0.1 % (0.0-2.0); RBC 4.43 Mil/uL (3.80-5.20); RED CELL DISTRIBUTION WIDTH 15.3 % (11.5-14.5); WHITE BLOOD COUNT 10.8 K/uL (4.8-10.8)
[2017-06-28 08:07] LABS: ALB/GLOB RATIO 0.9 (1.0-2.1); ALBUMIN 3.4 g/dL (3.5-5.0); ALT/SGPT 15 U/L (9-52); AST/SGOT 21 U/L (14-36); BLOOD UREA NITROGEN 12 mg/dL (7-17); GFR AFRICAN-AMERICAN > 60; GFR NON-AFRICAN AMERICAN > 60
--- NOTE | 2017-06-28 08:10 | CP.PCM.PN ---
Subjective - Date & Time of Evaluation Date of Evaluation: 06/28/17 Time of Evaluation: 19:50 - Subjective Subjective: Pt seen and examined, pt is feeling better, is stable for discharge Objective - Vital Signs/Intake and Output Vital Signs (last 24 hours): Temp Pulse Resp BP Pulse Ox 98.1 F 67 20 134/88 97 06/28/17 07:25 06/28/17 07:25 06/28/17 07:25 06/28/17 07:25 06/28/17 07:25 - Medications Medications: Current Medications Al Hydrox/Mg Hydrox/Simethicone (Maalox 30 Ml) 30 ml PO TID PRN PRN Reason: Indigestion / Heartburn Last Admin: 06/19/17 14:03 Dose: 30 ml Albuterol/Ipratropium (Duoneb 3 Mg/0.5 Mg (3 Ml) Ud) 3 ml INH RQ6 [facility] Last Admin: 06/28/17 07:12 Dose: 3 ml Gabapentin (Neurontin) 800 mg PO TID [facility] Last Admin: 06/27/17 18:22 Dose: 800 mg Vancomycin/Sodium Chloride (Vancomycin 1 Gm/Ns 200 Ml) 1 gm in 200 mls @ 133.333 mls/hr IVPB Q12H [facility] PRN Reason: Protocol Stop: 06/29/17 15:01 Last Admin: 06/28/17 02:00 Dose: 133.333 mls/hr Meropenem 500 mg/ Sodium (Chloride) 100 mls @ 100 mls/hr IVPB Q8 [facility]LA PRN Reason: Protocol Last Admin: 06/28/17 05:25 Dose: 100 mls/hr Insulin Aspart (Novolog) 0 unit SC Q6H [facility]LA PRN Reason: Protocol Last Admin: 06/28/17 06:10 Dose: Not Given Insulin Glargine (Lantus) 30 unit SC HS [facility] Last Admin: 06/27/17 21:37 Dose: 30 units Lactobacillus Acidophilus (Bacid Acidophilus) 1 cap PO BID [facility] Last Admin: 06/27/17 18:30 Dose: 1 cap Lorazepam (Ativan) 2 mg PO BID PRN PRN Reason: Anxiety Last Admin: 06/27/17 23:57 Dose: 2 mg Montelukast Sodium (Singulair) 10 mg PO HS [facility] Last Admin: 06/27/17 21:37 Dose: 10 mg Nitroglycerin (Nitrostat Sl Tab) 0.4 mg SL Q5M PRN PRN Reason: Pain, Mild (1-3) Last Admin: 06/12/17 22:51 Dose: 0.4 mg Nystatin (Nystop Topical Powder) 1 applic TOP BID [facility] Last Admin: 06/27/17 18:36 Dose: 1 applic Oxycodone/Acetaminophen (Percocet 5/325 Mg Tab) 1 tab PO Q4H PRN PRN Reason: Pain, moderate (4-7) Stop: 06/28/17 19:47 Last Admin: 06/26/17 15:56 Dose: 1 tab Pantoprazole Sodium (Protonix Susp) 40 mg PO 0600 [facility] Last Admin: 06/28/17 05:25 Dose: 40 mg Prednisone (Prednisone Tab) 20 mg PO DAILY [facility] Last Admin: 06/27/17 09:18 Dose: 20 mg Quetiapine Fumarate (Seroquel) 400 mg PO Q12 [facility] Last Admin: 06/27/17 21:36 Dose: 400 mg Trazodone HCl (Desyrel) 150 mg PO HS [facility] Last Admin: 06/27/17 21:36 Dose: 150 mg - Labs Labs: 06/28/17 07:13 06/28/17 07:13 PT 11.7 SECONDS (9.7-12.2) 06/17/17 21:16 INR 1.0 06/17/17 21:16 APTT 30 SECONDS (21-34) 06/17/17 21:16 - Constitutional Appears: No Acute Distress - Head Exam Head Exam: ATRAUMATIC, NORMAL INSPECTION, NORMOCEPHALIC - Eye Exam Eye Exam: EOMI, Normal appearance, PERRL Pupil Exam: NORMAL ACCOMODATION, PERRL - Respiratory Exam Respiratory Exam: Clear to Ausculation Bilateral, NORMAL BREATHING PATTERN - Cardiovascular Exam Cardiovascular Exam: REGULAR RHYTHM, +S1, +S2. absent: Murmur - GI/Abdominal Exam GI & Abdominal Exam: Soft, Normal Bowel Sounds. absent: Tenderness - Neurological Exam Neurological Exam: Alert, Awake, CN II-XII Intact, Normal Gait, Oriented x3 Assessment and Plan (1) COPD exacerbation Status: Acute (2) Chronic congestive heart failure Status: Acute (3) Prophylactic measure Status: Acute (4) Sepsis Status: Acute (5) Steroid-induced hyperglycemia Status: Acute
[2017-06-28] MEDS: Lactobacillus Acidophilus 500 MU Cap PO SCH ×2 (10:17→17:52)
--- NOTE | 2017-06-28 15:49 | PN ---
DATE: 06/28/17 SUBJECTIVE: The patient is seen. The patient continues to improve clinically with specifically reduction of psych meds. The patient wants to go home. She does not want to go for rehab. She has been compliant with her meds. She states she is sleeping better. No hallucinations. No suicidal or homicidal ideation. PHYSICAL EXAMINATION: VITAL SIGNS: Temperature is 98.1, pulse rate 67, blood pressure 134/88, respirations 20, oxygen saturations is 97%. NECK: The patient has trach collar. REVIEW OF SYSTEMS: GENERAL: Alert and oriented x3, speaks in whispers. SKIN: No diaphoresis. HEENT: No headache, no dizziness. NECK: The patient is status post trach placement. RESPIRATORY: No dyspnea. CARDIOVASCULAR: No chest pain. GASTROINTESTINAL: The patient is eating well. EXTREMITIES: Moving extremities. The patient is able to go to the bathroom without any problems. MUSCULOSKELETAL: Weakness improving. NEURO: Alert and oriented x3. MENTAL STATUS EXAMINATION: Obese female who looks stated age, alert and oriented x3, Mood is little anxious. Affect is reactive. Speaks in whispers due to her trach. Thought process, coherent. Thought content, the patient wants to go home. No psychosis. No suicidal or homicidal ideation. The patient tolerating the recent reduction of psych meds. Attention and memory seems to be fair. Insight and judgment fair. Impulse control is fair. IMPRESSION: History of schizoaffective disorder, bipolar type, history of exacerbation of chronic obstructive pulmonary disease, history of respiratory failure, status post tracheostomy placement, obesity, diabetes, hypertension. PLAN/RECOMMENDATIONS: The patient is seen, meds reviewed. Continue present management. Psych de la cruz, the patient once medically cleared can go home. She does not need continued treatment with antibiotics. Wellington Dejesus MD MTDAndres
--- NOTE | 2017-06-28 17:47 | CP.PCM.PN ---
Subjective - Date & Time of Evaluation Date of Evaluation: 06/28/17 Time of Evaluation: 10:20 - Subjective Subjective: The patient seen and examined Status post trach change to fenestrated Unable to speak Still having cough and phlegm Objective - Vital Signs/Intake and Output Vital Signs (last 24 hours): Temp Pulse Resp BP Pulse Ox 98 F 80 20 133/85 95 06/28/17 16:03 06/28/17 16:03 06/28/17 16:03 06/28/17 16:03 06/28/17 16:03 - Medications Medications: Current Medications Al Hydrox/Mg Hydrox/Simethicone (Maalox 30 Ml) 30 ml PO TID PRN PRN Reason: Indigestion / Heartburn Last Admin: 06/19/17 14:03 Dose: 30 ml Albuterol/Ipratropium (Duoneb 3 Mg/0.5 Mg (3 Ml) Ud) 3 ml INH RQ6 [facility] Last Admin: 06/28/17 13:12 Dose: Not Given Gabapentin (Neurontin) 800 mg PO TID [facility] Last Admin: 06/28/17 13:31 Dose: 800 mg Vancomycin/Sodium Chloride (Vancomycin 1 Gm/Ns 200 Ml) 1 gm in 200 mls @ 133.333 mls/hr IVPB Q12H [facility] PRN Reason: Protocol Stop: 06/29/17 15:01 Last Admin: 06/28/17 15:54 Dose: 133.333 mls/hr Meropenem 500 mg/ Sodium (Chloride) 100 mls @ 100 mls/hr IVPB Q8 SH[facility]LA PRN Reason: Protocol Last Admin: 06/28/17 13:31 Dose: 100 mls/hr Insulin Aspart (Novolog) 0 unit SC Q6H [facility]LA PRN Reason: Protocol Last Admin: 06/28/17 06:10 Dose: Not Given Insulin Glargine (Lantus) 30 unit SC HS [facility] Last Admin: 06/27/17 21:37 Dose: 30 units Lactobacillus Acidophilus (Bacid Acidophilus) 1 cap PO BID [facility] Last Admin: 06/28/17 10:17 Dose: 1 cap Lorazepam (Ativan) 2 mg PO BID PRN PRN Reason: Anxiety Last Admin: 06/27/17 23:57 Dose: 2 mg Montelukast Sodium (Singulair) 10 mg PO HS [facility] Last Admin: 06/27/17 21:37 Dose: 10 mg Nitroglycerin (Nitrostat Sl Tab) 0.4 mg SL Q5M PRN PRN Reason: Pain, Mild (1-3) Last Admin: 06/12/17 22:51 Dose: 0.4 mg Nystatin (Nystop Topical Powder) 1 applic TOP BID [facility] Last Admin: 06/28/17 10:25 Dose: 1 applic Oxycodone/Acetaminophen (Percocet 5/325 Mg Tab) 1 tab PO Q4H PRN PRN Reason: Pain, moderate (4-7) Stop: 06/28/17 19:47 Last Admin: 06/26/17 15:56 Dose: 1 tab Pantoprazole Sodium (Protonix Susp) 40 mg PO 0600 [facility] Last Admin: 06/28/17 05:25 Dose: 40 mg Prednisone (Prednisone Tab) 20 mg PO DAILY [facility] Last Admin: 06/28/17 10:17 Dose: 20 mg Quetiapine Fumarate (Seroquel) 400 mg PO Q12 [facility] Last Admin: 06/28/17 10:17 Dose: 400 mg Trazodone HCl (Desyrel) 150 mg PO HS [facility] Last Admin: 06/27/17 21:36 Dose: 150 mg - Labs Labs: 06/28/17 07:13 06/28/17 07:13 PT 11.7 SECONDS (9.7-12.2) 06/17/17 21:16 INR 1.0 06/17/17 21:16 APTT 30 SECONDS (21-34) 06/17/17 21:16 - Head Exam Head Exam: ATRAUMATIC, NORMOCEPHALIC - Eye Exam Eye Exam: Normal appearance - ENT Exam ENT Exam: Mucous Membranes Moist - Neck Exam Neck Exam: Normal Inspection - Respiratory Exam Respiratory Exam: Rhonchi - Cardiovascular Exam Cardiovascular Exam: REGULAR RHYTHM - GI/Abdominal Exam GI & Abdominal Exam: Soft Assessment and Plan (1) COPD exacerbation Status: Acute (2) Tracheobronchitis Assessment & Plan: Continue antibiotics Taper steroids Continue nebulizer treatment Trach weaning Status: Acute
[2017-06-28] MEDS: Oxycodone/Acetaminophen 5/325 mg Tab PO PRN (19:25)
[2017-06-28] MEDS: (Lantus) Insulin Glargine, Recombinant SC SCH (21:59)
[2017-06-29] MEDS: (Novolog) Insulin Aspart, Recombinant 100 u/ml 10 ml vial SC SCH ×4 (00:07→19:18)
[2017-06-29] MEDS: Albuterol-Ipratrop 3 mg / 0.5 (3 ml) UD INH SCH ×3 (01:25→12:59)
[2017-06-29] MEDS: Vancomycin 1 gm/NS 200 ml 1 GM/200 ML BAG IVPB SCH ×2 (02:51→15:04)
[2017-06-29] MEDS: Pantoprazole 40 mg Susp UD PO SCH (05:11)
[2017-06-29] MEDS: Meropenem 500 MG in Sodium Chloride 0.9% 100 ML IVPB SCH ×2 (05:12→13:43)
[2017-06-29 07:41] LABS: BASO # 0.1 K/uL (0.0-0.2); BASO % 0.9 % (0.0-2.0); EOS # 0.1 K/uL (0.0-0.7); HEMOGLOBIN 11.7 g/dL (11.0-16.0); LYMPH # 2.8 K/uL (1.0-4.3); LYMPH % 22.9 % (20.0-40.0); MEAN CELL VOLUME 82.6 fL (81.0-99.0); MEAN CORPUSCULAR HEMOGLOBIN 27.5 pg (27.0-31.0); MEAN CORPUSCULAR HGB CONC 33.3 g/dL (33.0-37.0); MEAN PLATELET VOLUME 8.6 fL (7.2-11.7); MONO # 0.8 K/uL (0.0-0.8); MONO % 6.2 % (0.0-10.0); NEUT # 8.4 K/uL (1.8-7.0); NRBC % 0.2 % (0.0-2.0); RBC 4.25 Mil/uL (3.80-5.20); RED CELL DISTRIBUTION WIDTH 15.3 % (11.5-14.5); WHITE BLOOD COUNT 12.2 K/uL (4.8-10.8)
[2017-06-29 07:48] VITALS: O2SAT 98
[2017-06-29 07:54] LABS: ALB/GLOB RATIO 0.9 (1.0-2.1); ALBUMIN 3.2 g/dL (3.5-5.0); ALT/SGPT 17 U/L (9-52); AST/SGOT 18 U/L (14-36); BLOOD UREA NITROGEN 19 mg/dL (7-17); CALCIUM 8.7 mg/dl (8.6-10.4); GFR AFRICAN-AMERICAN > 60; GFR NON-AFRICAN AMERICAN > 60
[2017-06-29] MEDS: Lactobacillus Acidophilus 500 MU Cap PO SCH ×2 (10:01→19:17)
--- NOTE | 2017-06-29 11:58 | CP.PCM.PN ---
Subjective - Date & Time of Evaluation Date of Evaluation: 06/29/17 Time of Evaluation: 07:00 - Subjective Subjective: the patient seen and examine Breathing much improved Afebrile No chest pain Objective - Vital Signs/Intake and Output Vital Signs (last 24 hours): Temp Pulse Resp BP Pulse Ox 97.9 F 68 20 121/79 98 06/29/17 07:20 06/29/17 07:20 06/29/17 07:20 06/29/17 07:20 06/29/17 07:20 Intake and Output: 06/29/17 06/29/17 06:59 18:59 Intake Total 350 Balance 350 - Medications Medications: Current Medications Al Hydrox/Mg Hydrox/Simethicone (Maalox 30 Ml) 30 ml PO TID PRN PRN Reason: Indigestion / Heartburn Last Admin: 06/19/17 14:03 Dose: 30 ml Albuterol/Ipratropium (Duoneb 3 Mg/0.5 Mg (3 Ml) Ud) 3 ml INH RQ6 [facility] Last Admin: 06/29/17 07:14 Dose: 3 ml Gabapentin (Neurontin) 800 mg PO TID [facility] Last Admin: 06/29/17 10:00 Dose: 800 mg Vancomycin/Sodium Chloride (Vancomycin 1 Gm/Ns 200 Ml) 1 gm in 200 mls @ 133.333 mls/hr IVPB Q12H [facility] PRN Reason: Protocol Stop: 06/29/17 15:01 Last Admin: 06/29/17 02:51 Dose: 133.333 mls/hr Meropenem 500 mg/ Sodium (Chloride) 100 mls @ 100 mls/hr IVPB Q8 SH[facility]LA PRN Reason: Protocol Last Admin: 06/29/17 05:12 Dose: 100 mls/hr Insulin Aspart (Novolog) 0 unit SC Q6H [facility]LA PRN Reason: Protocol Last Admin: 06/29/17 11:44 Dose: Not Given Insulin Glargine (Lantus) 30 unit SC HS [facility] Last Admin: 06/28/17 21:59 Dose: 30 units Lactobacillus Acidophilus (Bacid Acidophilus) 1 cap PO BID [facility] Last Admin: 06/29/17 10:01 Dose: 1 cap Lorazepam (Ativan) 2 mg PO BID PRN PRN Reason: Anxiety Last Admin: 06/28/17 17:52 Dose: 2 mg Montelukast Sodium (Singulair) 10 mg PO HS [facility] Last Admin: 06/28/17 21:59 Dose: 10 mg Nitroglycerin (Nitrostat Sl Tab) 0.4 mg SL Q5M PRN PRN Reason: Pain, Mild (1-3) Last Admin: 06/12/17 22:51 Dose: 0.4 mg Nystatin (Nystop Topical Powder) 1 applic TOP BID [facility] Last Admin: 06/29/17 09:58 Dose: 1 applic Pantoprazole Sodium (Protonix Susp) 40 mg PO 0600 [facility] Last Admin: 06/29/17 05:11 Dose: 40 mg Prednisone (Prednisone Tab) 20 mg PO DAILY [facility] Last Admin: 06/29/17 09:57 Dose: 20 mg Quetiapine Fumarate (Seroquel) 400 mg PO Q12 [facility] Last Admin: 06/29/17 09:58 Dose: 400 mg Trazodone HCl (Desyrel) 150 mg PO [facility] Last Admin: 06/28/17 21:58 Dose: 150 mg - Labs Labs: 06/29/17 07:25 06/29/17 07:25 PT 11.7 SECONDS (9.7-12.2) 06/17/17 21:16 INR 1.0 06/17/17 21:16 APTT 30 SECONDS (21-34) 06/17/17 21:16 - Head Exam Head Exam: ATRAUMATIC, NORMOCEPHALIC - Eye Exam Eye Exam: Normal appearance - Neck Exam Neck Exam: Normal Inspection - Respiratory Exam Respiratory Exam: Clear to Ausculation Bilateral - GI/Abdominal Exam GI & Abdominal Exam: Soft, Normal Bowel Sounds Assessment and Plan (1) COPD exacerbation Assessment & Plan: Continue nebulizer treatment Trach weaning Taper steroids Stable from pulmonary stand point Status: Acute (2) Tracheobronchitis Status: Acute
[2017-06-29 16:39] VITALS: BP 127/72; PULSE 83; TEMP 98.7
--- NOTE | 2017-06-29 16:54 | CP.PCM.PN ---
Subjective - Date & Time of Evaluation Date of Evaluation: 06/29/17 Time of Evaluation: 18:00 - Subjective Subjective: the patient seen and examine Breathing much improved Afebrile No chest pain Objective - Vital Signs/Intake and Output Vital Signs (last 24 hours): Temp Pulse Resp BP Pulse Ox 98.7 F 83 20 127/72 98 06/29/17 16:38 06/29/17 16:38 06/29/17 16:38 06/29/17 16:38 06/29/17 16:38 Intake and Output: 06/29/17 06/29/17 06:59 18:59 Intake Total 350 730 Balance 350 730 - Medications Medications: Current Medications Al Hydrox/Mg Hydrox/Simethicone (Maalox 30 Ml) 30 ml PO TID PRN PRN Reason: Indigestion / Heartburn Last Admin: 06/19/17 14:03 Dose: 30 ml Albuterol/Ipratropium (Duoneb 3 Mg/0.5 Mg (3 Ml) Ud) 3 ml INH RQ6 [facility] Last Admin: 06/29/17 12:59 Dose: 3 ml Gabapentin (Neurontin) 800 mg PO TID [facility] Last Admin: 06/29/17 13:43 Dose: 800 mg Meropenem 500 mg/ Sodium (Chloride) 100 mls @ 100 mls/hr IVPB Q8 [facility]LA PRN Reason: Protocol Last Admin: 06/29/17 13:43 Dose: 100 mls/hr Insulin Aspart (Novolog) 0 unit SC Q6H [facility]LA PRN Reason: Protocol Last Admin: 06/29/17 11:44 Dose: Not Given Insulin Glargine (Lantus) 30 unit SC [facility] Last Admin: 06/28/17 21:59 Dose: 30 units Lactobacillus Acidophilus (Bacid Acidophilus) 1 cap PO BID [facility] Last Admin: 06/29/17 10:01 Dose: 1 cap Lorazepam (Ativan) 2 mg PO BID PRN PRN Reason: Anxiety Last Admin: 06/28/17 17:52 Dose: 2 mg Montelukast Sodium (Singulair) 10 mg PO [facility] Last Admin: 06/28/17 21:59 Dose: 10 mg Nitroglycerin (Nitrostat Sl Tab) 0.4 mg SL Q5M PRN PRN Reason: Pain, Mild (1-3) Last Admin: 06/12/17 22:51 Dose: 0.4 mg Nystatin (Nystop Topical Powder) 1 applic TOP BID [facility] Last Admin: 06/29/17 09:58 Dose: 1 applic Pantoprazole Sodium (Protonix Susp) 40 mg PO 0600 [facility] Last Admin: 06/29/17 05:11 Dose: 40 mg Prednisone (Prednisone Tab) 20 mg PO DAILY [facility] Last Admin: 06/29/17 09:57 Dose: 20 mg Quetiapine Fumarate (Seroquel) 400 mg PO Q12 [facility] Last Admin: 06/29/17 09:58 Dose: 400 mg Trazodone HCl (Desyrel) 150 mg PO HS [facility] Last Admin: 06/28/17 21:58 Dose: 150 mg - Labs Labs: 06/29/17 07:25 06/29/17 07:25 PT 11.7 SECONDS (9.7-12.2) 06/17/17 21:16 INR 1.0 06/17/17 21:16 APTT 30 SECONDS (21-34) 06/17/17 21:16 Assessment and Plan (1) COPD exacerbation Status: Acute (2) Chronic congestive heart failure Status: Acute (3) Prophylactic measure Status: Acute (4) Sepsis Status: Acute (5) Steroid-induced hyperglycemia Status: Acute
[2017-06-29 17:05] LABS: ARTERIAL BLOOD GAS HCO3 28.1 mmol/L (21-28); ARTERIAL BLOOD GAS HEMOGLOBIN 12.1 g/dL (11.7-17.4); ARTERIAL BLOOD GAS O2 SAT 99.6 % (95-98); ARTERIAL BLOOD GAS PCO2 41 mm/Hg (35-45); ARTERIAL BLOOD GAS PH 7.45 (7.35-7.45); ARTERIAL BLOOD GAS PO2 142 mm/Hg (80-100); ARTERIAL BLOOD GAS TCO2 29.8 mmol/L (22-28)
--- NOTE | 2017-06-29 17:38 | CP.PCM.PN ---
Subjective - Date & Time of Evaluation Date of Evaluation: 06/29/17 Time of Evaluation: 17:38 - Subjective Subjective: PATIENT WAS ADMITTED FOR COPD EXACERBATION AAOX3 ON ROOM AIR/ DENIES CHEST PAIN OR SOB NO SIGN OF DISTRESS NOTED Objective - Vital Signs/Intake and Output Vital Signs (last 24 hours): Temp Pulse Resp BP Pulse Ox 98.7 F 83 20 127/72 98 06/29/17 16:38 06/29/17 16:38 06/29/17 16:38 06/29/17 16:38 06/29/17 16:38 Intake and Output: 06/29/17 06/29/17 06:59 18:59 Intake Total 350 730 Balance 350 730 - Medications Medications: Current Medications Al Hydrox/Mg Hydrox/Simethicone (Maalox 30 Ml) 30 ml PO TID PRN PRN Reason: Indigestion / Heartburn Last Admin: 06/19/17 14:03 Dose: 30 ml Albuterol/Ipratropium (Duoneb 3 Mg/0.5 Mg (3 Ml) Ud) 3 ml INH RQ6 [facility] Last Admin: 06/29/17 12:59 Dose: 3 ml Gabapentin (Neurontin) 800 mg PO TID [facility] Last Admin: 06/29/17 13:43 Dose: 800 mg Meropenem 500 mg/ Sodium (Chloride) 100 mls @ 100 mls/hr IVPB Q8 [facility]AYLA PRN Reason: Protocol Last Admin: 06/29/17 13:43 Dose: 100 mls/hr Insulin Aspart (Novolog) 0 unit SC Q6H SHAYLA PRN Reason: Protocol Last Admin: 06/29/17 11:44 Dose: Not Given Insulin Glargine (Lantus) 30 unit SC [facility] Last Admin: 06/28/17 21:59 Dose: 30 units Lactobacillus Acidophilus (Bacid Acidophilus) 1 cap PO BID [facility] Last Admin: 06/29/17 10:01 Dose: 1 cap Lorazepam (Ativan) 2 mg PO BID PRN PRN Reason: Anxiety Last Admin: 06/28/17 17:52 Dose: 2 mg Montelukast Sodium (Singulair) 10 mg PO [facility] Last Admin: 06/28/17 21:59 Dose: 10 mg Nitroglycerin (Nitrostat Sl Tab) 0.4 mg SL Q5M PRN PRN Reason: Pain, Mild (1-3) Last Admin: 06/12/17 22:51 Dose: 0.4 mg Nystatin (Nystop Topical Powder) 1 applic TOP BID [facility] Last Admin: 06/29/17 09:58 Dose: 1 applic Pantoprazole Sodium (Protonix Susp) 40 mg PO 0600 [facility] Last Admin: 06/29/17 05:11 Dose: 40 mg Prednisone (Prednisone Tab) 20 mg PO DAILY [facility] Last Admin: 06/29/17 09:57 Dose: 20 mg Quetiapine Fumarate (Seroquel) 400 mg PO Q12 [facility] Last Admin: 06/29/17 09:58 Dose: 400 mg Trazodone HCl (Desyrel) 150 mg PO HS [facility] Last Admin: 06/28/17 21:58 Dose: 150 mg - Labs Labs: 06/29/17 07:25 06/29/17 07:25 PT 11.7 SECONDS (9.7-12.2) 06/17/17 21:16 INR 1.0 06/17/17 21:16 APTT 30 SECONDS (21-34) 06/17/17 21:16 Assessment and Plan - Assessment and Plan (Free Text) Assessment: PATIENT SEEN AND EXAMINED AT THE BEDSIDE TRACH CAP ON ROOM AIR AND SAT AT 100 % ABG ON ROOM PH IS 7.45 PO2 142 PCO2 41 LUNG SOUND CLEAR NABOR PATIENT RETURN DEMONSTRATION TO CAP/UNCAP TRACH IN CASE OF DISTRESS AT HOME DISCUSS WITH DR SINGLETON AND DR HUGGINS WHO AGREE AND CLEAR PATIENT FOR DC FOLLOW UP WITH DR HUGGINS IN 1-2 WEEK AT HIS OFFICE ---CALL FOR APPOINTMENT FOLLOW UP WITH DR SINGLETON IN 1-2 WEEK AT HIS OFFICE ---CALL FOR APPOINTMENT FOLLOW UP WITH DR MCGARRY IN 1-2 WEEK AT HIS OFFICE ---CALL FOR APPOINTMENT CONTINUE ALL YOUR HOME DIRECTED NEW PRESCRIPTION GIVEN PROTONIX 20 MG BY MOUTH ONE TAB DAILY MEDROL PACK 4 MG PO DIRECTED LANTUS 30 UNIT SC AT NIGHT ACTIVITY TOLERATED CALL DR HUGGINS OR GO TO THE EMERGENCY ROOM IF SYMPTOMS RETURN OR WORSENING DISCUSS WITH PATIENT WHO AGREE AND VERBALIZED UNDERSTANDING
--- NOTE | 2017-06-29 17:57 | CP.PCM.PN ---
Subjective - Date & Time of Evaluation Date of Evaluation: 06/29/17 Time of Evaluation: 08:00 - Subjective Subjective: improving on IV rx rx renewed Objective - Vital Signs/Intake and Output Vital Signs (last 24 hours): Temp Pulse Resp BP Pulse Ox 98.7 F 83 20 127/72 98 06/29/17 16:38 06/29/17 16:38 06/29/17 16:38 06/29/17 16:38 06/29/17 16:38 Intake and Output: 06/29/17 06/29/17 06:59 18:59 Intake Total 350 730 Balance 350 730 - Medications Medications: Current Medications Al Hydrox/Mg Hydrox/Simethicone (Maalox 30 Ml) 30 ml PO TID PRN PRN Reason: Indigestion / Heartburn Last Admin: 06/19/17 14:03 Dose: 30 ml Albuterol/Ipratropium (Duoneb 3 Mg/0.5 Mg (3 Ml) Ud) 3 ml INH RQ6 [facility] Last Admin: 06/29/17 12:59 Dose: 3 ml Gabapentin (Neurontin) 800 mg PO TID [facility] Last Admin: 06/29/17 13:43 Dose: 800 mg Meropenem 500 mg/ Sodium (Chloride) 100 mls @ 100 mls/hr IVPB Q8 [facility] PRN Reason: Protocol Last Admin: 06/29/17 13:43 Dose: 100 mls/hr Insulin Aspart (Novolog) 0 unit SC Q6H [facility] PRN Reason: Protocol Last Admin: 06/29/17 11:44 Dose: Not Given Insulin Glargine (Lantus) [address] [facility] Last Admin: 06/28/17 21:59 Dose: 30 units Lactobacillus Acidophilus (Bacid Acidophilus) 1 cap PO BID [facility] Last Admin: 06/29/17 10:01 Dose: 1 cap Lorazepam (Ativan) 2 mg PO BID PRN PRN Reason: Anxiety Last Admin: 06/28/17 17:52 Dose: 2 mg Montelukast Sodium (Singulair) 10 mg PO HS [facility] Last Admin: 06/28/17 21:59 Dose: 10 mg Nitroglycerin (Nitrostat Sl Tab) 0.4 mg SL Q5M PRN PRN Reason: Pain, Mild (1-3) Last Admin: 06/12/17 22:51 Dose: 0.4 mg Nystatin (Nystop Topical Powder) 1 applic TOP BID [facility] Last Admin: 06/29/17 09:58 Dose: 1 applic Pantoprazole Sodium (Protonix Susp) 40 mg PO 0600 [facility] Last Admin: 06/29/17 05:11 Dose: 40 mg Prednisone (Prednisone Tab) 20 mg PO DAILY [facility] Last Admin: 06/29/17 09:57 Dose: 20 mg Quetiapine Fumarate (Seroquel) 400 mg PO Q12 [facility] Last Admin: 06/29/17 09:58 Dose: 400 mg Trazodone HCl (Desyrel) 150 mg PO HS [facility] Last Admin: 06/28/17 21:58 Dose: 150 mg - Labs Labs: 06/29/17 07:25 06/29/17 07:25 PT 11.7 SECONDS (9.7-12.2) 06/17/17 21:16 INR 1.0 06/17/17 21:16 APTT 30 SECONDS (21-34) 06/17/17 21:16 - Constitutional Appears: Non-toxic, Chronically Ill - Head Exam Head Exam: NORMOCEPHALIC - Eye Exam Eye Exam: absent: Scleral icterus - ENT Exam ENT Exam: Mucous Membranes Dry - Neck Exam Neck Exam: absent: Lymphadenopathy - Respiratory Exam Respiratory Exam: Decreased Breath Sounds - Cardiovascular Exam Cardiovascular Exam: REGULAR RHYTHM - GI/Abdominal Exam GI & Abdominal Exam: Distended, Soft Assessment and Plan (1) COPD exacerbation Status: Acute (2) Chronic congestive heart failure Status: Acute (3) Ketoacidosis in diabetes mellitus Status: Active
--- NOTE | 2017-06-29 18:41 | PN ---
DATE: 06/29/2017 SUBJECTIVE: The patient continues to improve clinically. She is tolerating the capping of the trach collar. The patient wants to go home. The patient awaiting medical clearance to be discharged to home. Psych-de la cruz, she is at her baseline and tolerating recent change of medications. PHYSICAL EXAMINATION: VITAL SIGNS: Temperature 97.9, pulse 68, blood pressure 121/79, respirations 20, oxygen saturation 98%. REVIEW OF SYSTEMS: GENERAL: The patient is alert and oriented x3. Speaks in whispers in her room, cooperative. SKIN: No diaphoresis. HEENT: No headache or dizziness. NECK: Has the trach collar. RESPIRATORY: No dyspnea. CARDIOVASCULAR: No chest pain. GASTROINTESTINAL: She is eating very well despite respiratory problems. EXTREMITIES: Moving extremities. The patient is able to ambulate to the bathroom by herself. NEUROLOGIC: Alert and oriented x3. GENITOURINARY: No dysuria. MENTAL STATUS EXAMINATION: An obese female, who looks stated age, alert and oriented x3. Mood is calm. Affect is reactive. Speech is spontaneous. Thought process, coherent. Thought content, no overt psychosis. No suicidal or homicidal ideation. The patient is tolerating recent changes of meds. Attention and memory seems to be fair. Insight and judgment is fair. Impulse control is fair. IMPRESSION: Schizoaffective disorder, bipolar type, as well as history of exacerbation of chronic obstructive pulmonary disease, pneumonia, obesity, diabetes, hypertension, chronic back pain. PLAN AND RECOMMENDATIONS: The patient is seen, meds reviewed. The patient is clinically close to her baseline. The patient can be discharged to home to riddhi Pope once medically cleared. The patient to continue her current psychiatric medications as ordered. [place] Dejesus MD
--- NOTE | 2017-06-30 08:29 | CP.PCM.DIS ---
Provider - Provider Date of Admission: 06/12/17 20:41 Attending physician: Ad Khan MD Time Spent in preparation of Discharge (in minutes): 45 Diagnosis - Discharge Diagnosis (1) COPD exacerbation Status: Acute (2) Chronic congestive heart failure Status: Acute (3) Prophylactic measure Status: Acute (4) Sepsis Status: Acute (5) Steroid-induced hyperglycemia Status: Acute Hospital Course - Lab Results Lab Results: Micro Results 06/21/17 11:15 Blood-Venous Blood Culture - Final NO GROWTH AFTER 5 DAYS 06/21/17 11:15 Blood-Venous Gram Stain - Final TEST NOT PERFORMED 06/17/17 21:30 Blood-Venous S.aureus & Coag-Neg Staph PNA FISH - Final 06/17/17 21:30 Blood-Venous Blood Culture - Final Gram Positive Cocci 06/17/17 21:30 Blood-Venous Gram Stain - Final 06/17/17 21:30 Blood-Venous Blood Culture - Final NO GROWTH AFTER 5 DAYS 06/17/17 21:30 Blood-Venous Gram Stain - Final TEST NOT PERFORMED 06/20/17 17:25 Naris MRSA Culture - Final MRSA NOT DETECTED 06/17/17 20:55 Trachasp Gram Stain - Final 06/17/17 20:55 Trachasp Sputum Culture - Final Proteus Mirabilis 06/17/17 21:47 Naris MRSA Culture (Admit) - Final MRSA NOT DETECTED 06/17/17 20:55 Urine,Sweet Urine Culture - Final No Growth (<1,000 CFU/ML) Most Recent Lab Values WBC 12.2 K/uL (4.8-10.8) H 06/29/17 07:25 RBC 4.25 Mil/uL (3.80-5.20) 06/29/17 07:25 Hgb 11.7 g/dL (11.0-16.0) 06/29/17 07:25 Hct 35.1 % (34.0-47.0) 06/29/17 07:25 MCV 82.6 fL (81.0-99.0) 06/29/17 07:25 MCH 27.5 pg (27.0-31.0) 06/29/17 07:25 MCHC 33.3 g/dL (33.0-37.0) 06/29/17 07:25 RDW 15.3 % (11.5-14.5) H 06/29/17 07:25 Plt Count 155 K/uL (130-400) 06/29/17 07:25 MPV 8.6 fL (7.2-11.7) 06/29/17 07:25 Neut % (Auto) 69.0 % (50.0-75.0) 06/29/17 07:25 Lymph % (Auto) 22.9 % (20.0-40.0) 06/29/17 07:25 [place] % (Auto) 6.2 % (0.0-10.0) 06/29/17 07:25 Eos % (Auto) 1.0 % (0.0-4.0) 06/29/17 07:25 Baso % (Auto) 0.9 % (0.0-2.0) 06/29/17 07:25 Neut # (Auto) 8.4 K/uL (1.8-7.0) H 06/29/17 07:25 Lymph # (Auto) 2.8 K/uL (1.0-4.3) 06/29/17 07:25 [place] # (Auto) 0.8 K/uL (0.0-0.8) 06/29/17 07:25 Eos # (Auto) 0.1 K/uL (0.0-0.7) 06/29/17 07:25 Baso # (Auto) 0.1 K/uL (0.0-0.2) 06/29/17 07:25 Neutrophils % (Manual) 88 % (50-75) H 06/15/17 12:11 Band Neutrophils % 1 % (0-2) 06/15/17 12:11 Lymphocytes % (Manual) 7 % (20-40) L 06/15/17 12:11 Monocytes % (Manual) 3 % (0-10) 06/15/17 12:11 Myelocytes % 1 % (0-0) H 06/15/17 12:11 Platelet Estimate Normal (NORMAL) 06/15/17 12:11 PT 11.7 SECONDS (9.7-12.2) 06/17/17 21:16 INR 1.0 06/17/17 21:16 APTT 30 SECONDS (21-34) 06/17/17 21:16 Puncture Site L radial 06/29/17 16:59 pCO2 41 mm/Hg (35-45) 06/29/17 16:59 pO2 142 mm/Hg (80-100) H 06/29/17 16:59 HCO3 28.1 mmol/L (21-28) H 06/29/17 16:59 ABG pH 7.45 (7.35-7.45) 06/29/17 16:59 ABG Total CO2 29.8 mmol/L (22-28) H 06/29/17 16:59 ABG O2 Saturation 99.6 % (95-98) H 06/29/17 16:59 ABG Base Excess 4.1 mmol/L (-2.0-3.0) H 06/29/17 16:59 ABG Hemoglobin 12.1 g/dL (11.7-17.4) 06/29/17 16:59 ABG Carboxyhemoglobin 2.0 % (0.5-1.5) H 06/29/17 16:59 POC ABG HHb (Measured) 0.4 % (0.0-5.0) 06/29/17 16:59 ABG Methemoglobin 1.5 % (0.0-3.0) 06/29/17 16:59 Rob Test Na 06/29/17 16:59 ABG Potassium 3.3 mmol/L (3.6-5.2) L 06/18/17 05:40 A-a O2 Difference -44.0 mm/Hg 06/29/17 16:59 Respiratory Index -0.3 06/29/17 16:59 Hgb O2 Saturation 96.2 % (95.0-98.0) 06/29/17 16:59 Sodium 139.0 mmol/l (132-148) 06/18/17 05:40 Chloride 103.0 mmol/L (98-107) 06/18/17 05:40 Glucose 144 mg/dl (65-105) H 06/18/17 05:40 Lactate 1.1 mmol/L (0.7-2.1) 06/18/17 05:40 Vent Mode Prvc 06/18/17 05:40 Mechanical Rate 22 06/18/17 05:40 FiO2 21.0 % 06/29/17 16:59 Tidal Volume 500 06/18/17 05:40 PEEP 5 06/18/17 05:40 Sodium 144 mmol/L (132-148) 06/29/17 07:25 Potassium 4.0 mmol/L (3.6-5.2) 06/29/17 07:25 Chloride 106 mmol/L (98-107) 06/29/17 07:25 Carbon Dioxide 27 mmol/L (22-30) 06/29/17 07:25 Anion Gap 15 (10-20) 06/29/17 07:25 BUN 19 mg/dL (7-17) H 06/29/17 07:25 Creatinine 0.9 mg/dL (0.7-1.2) 06/29/17 07:25 Est GFR ( Amer) > 60 06/29/17 07:25 Est GFR (Non-Af Amer) > 60 06/29/17 07:25 POC Glucose (mg/dL) 257 mg/dL (65-110) H 06/29/17 16:47 Random Glucose 169 mg/dL (65-105) H 06/29/17 07:25 Lactic Acid 1.5 mmol/L (0.7-2.1) 06/18/17 02:31 Calcium 8.7 mg/dl (8.6-10.4) 06/29/17 07:25 Phosphorus 2.7 mg/dL (2.5-4.5) 06/20/17 06:28 Magnesium 2.4 mg/dL (1.6-2.3) H 06/20/17 06:28 Total Bilirubin 0.4 mg/dL (0.2-1.3) 06/29/17 07:25 AST 18 U/L (14-36) 06/29/17 07:25 ALT 17 U/L (9-52) 06/29/17 07:25 Alkaline Phosphatase 131 U/L (38-126) H D 06/29/17 07:25 Troponin I 0.0180 ng/mL (0.00-0.120) 06/17/17 21:16 C-React Prot High Sens 14.67 mg/L (1.00-3.00) H 06/17/17 21:29 NT-Pro-B Natriuret Pep 248 pg/mL (0-900) 06/17/17 21:16 Total Protein 6.7 g/dL (6.3-8.3) 06/29/17 07:25 Albumin 3.2 g/dL (3.5-5.0) L 06/29/17 07:25 Globulin 3.5 gm/dL (2.2-3.9) 06/29/17 07:25 Albumin/Globulin Ratio 0.9 (1.0-2.1) L 06/29/17 07:25 Procalcitonin < 0.05 NG/ML (0.19-0.49) L 06/17/17 21:16 Arterial Blood Potassium 3.3 mmol/L (3.6-5.2) L 06/18/17 05:40 Urine Color Yellow (YELLOW) 06/17/17: Urine Clarity Hazy (Clear) 06/17/17: Urine pH 5.0 (5.0-8.0) 06/17/17 22: Ur Specific [place] 1.026 (1.003-1.030) 06/17/17 22: Urine Protein 1+ mg/dL (NEGATIVE) H 06/17/17: Urine Glucose (UA) Normal mg/dL (Normal) 06/17/17: Urine Ketones Negative mg/dL (NEGATIVE) 06/17/17: Urine Blood 2+ (NEGATIVE) H 06/17/17: Urine Nitrate Negative (NEGATIVE) 06/17/17: Urine Bilirubin Negative (NEGATIVE) 06/17/17: Urine Urobilinogen Normal mg/dL (0.2-1.0) 06/17/17 22: Ur Leukocyte Esterase Trace Brian/uL (Negative) 06/17/17: Urine WBC (Auto) 3 /hpf (0-5) 06/17/17 22: Urine RBC (Auto) 20 /hpf (0-3) H 06/17/17 22:28 Ur Squamous Epith Cells 1 /hpf (0-5) 06/17/17 22: Uric Acid Crystals Occ /hpf (<OCC) H 06/17/17 22:28 Urine Bacteria Occ (<OCC) H 06/17/17 22:28 Vancomycin Trough 13.8 ug/mL (5.0-10.0) H 06/27/17 03:07 - Hospital Course Hospital Course: Pt seeen and examined, afebrile, less cough, ess hort of breath, pt is for discharge TRACH CAP ON ROOM AIR AND SAT AT 100 % ABG ON ROOM PH IS 7.45 PO2 142 PCO2 41 LUNG SOUND CLEAR NABOR PATIENT RETURN DEMONSTRATION TO CAP/UNCAP TRACH IN CASE OF DISTRESS AT HOME DISCUSS WITH DR SINGLETON , AGREE AND CLEAR PATIENT FOR DC FOLLOW UP WITH ME IN 1-2 WEEK AT HIS OFFICE ---CALL FOR APPOINTMENT FOLLOW UP WITH DR SINGLETON IN 1-2 WEEK AT HIS OFFICE ---CALL FOR APPOINTMENT FOLLOW UP WITH DR MCGARRY IN 1-2 WEEK AT HIS OFFICE ---CALL FOR APPOINTMENT CONTINUE ALL YOUR HOME DIRECTED NEW PRESCRIPTION GIVEN PROTONIX 20 MG BY MOUTH ONE TAB DAILY MEDROL PACK 4 MG PO DIRECTED LANTUS 30 UNIT SC AT NIGHT ACTIVITY TOLERATED CALL DR KHAN OR GO TO THE EMERGENCY ROOM IF SYMPTOMS RETURN OR WORSENING DISCUSS WITH PATIENT WHO AGREE AND VERBALIZED UNDERSTANDING Discharge Exam - Head Exam Head Exam: NORMOCEPHALIC - Eye Exam Eye Exam: EOMI, Normal appearance, PERRL Pupil Exam: NORMAL ACCOMODATION, PERRL - ENT Exam ENT Exam: Mucous Membranes Moist - Respiratory Exam Respiratory Exam: Decreased Breath Sounds, Rhonchi, NORMAL BREATHING PATTERN - Cardiovascular Exam Cardiovascular Exam: REGULAR RHYTHM, +S1, +S2 - GI/Abdominal Exam GI & Abdominal Exam: Normal Bowel Sounds Discharge Plan - Discharge Medications Prescriptions: Insulin Glargine, Recombina [Lantus] 30 unit SC HS #1 packet Methylprednisolone [Medrol Dose Pack (21 tabs)] 4 mg PO DAILY #21 mg Pantoprazole [Protonix EC Tab] 20 mg PO DAILY 30 Days ect - Follow Up Plan Condition: GOOD Disposition: HOME/ ROUTINE Instructions: Type 2 Diabetes, Heart Failure, Adult (DC), Diabetes Diet , Exacerbation of COPD (DC), How to Care for a Tracheostomy, Tracheotomy (DC), Heart Failure Exercise Guide Additional Instructions: FOLLOW UP WITH DR KHAN IN 1-2 WEEK AT HIS OFFICE ---CALL FOR APPOINTMENT FOLLOW UP WITH DR SINGLETON IN 1-2 WEEK AT HIS OFFICE ---CALL FOR APPOINTMENT FOLLOW UP WITH DR CURRY IN 1-2 WEEK AT HIS OFFICE ---CALL FOR APPOINTMENT CONTINUE ALL YOUR HOME DIRECTED NEW PRESCRIPTION GIVEN PROTONIX 20 MG BY MOUTH ONE TAB DAILY MEDROL PACK 4 MG PO DIRECTED LANTUS 30 UNIT SC AT NIGHT ACTIVITY TOLERATED CALL DR KHAN OR GO TO THE EMERGENCY ROOM IF SYMPTOMS RETURN OR WORSENING SEGUIR CON DR KHAN EN 1-2 [place] SEGUIR CON DR SINGLETON EN 1-2 [place] --- [place] SEGUIR CON DR CURRY EN 1-2 [place] --- [place] PRESCRIPCIN STEPH PROTONIX 20 MG BY MOUTH ONE TAB DIARIO MEDROL PACK 4 MG PO JACKELINE SE IND[place] LANTUS 30 UNIT SC POR LA NOCHE ACTIVIDAD TOLERADA LLAME AL DR. KHAN O DIRJASE A LA MIRIAM DE EMERGENCIAS SI LOS SNTOMAS DEVUELVAN O ESTN ACTUANDO Referrals: Jake Keller MD [Staff Provider] - Wellington Lopez MD [Staff Provider] - Ad Khan MD [Staff Provider] - Olvin Ochoa MD [Staff Provider] -
== END 2017-06-29 19:58 | disposition home health service (06) | DRG 882 ==
LOC: C.ER 18:08 → C.6T 20:41 → C.9I 06-17 20:04 → C.5S 06-20 18:16
PROVIDERS: ADMIT Internal Medicine; ATTEND Internal Medicine
PROC: 0BP1XFZ Removal of Tracheostomy Device from Trachea, External Approach (ICD-10-PCS; 2017-06-17)
PROC: 5A1945Z Respiratory Ventilation, 24-96 Consecutive Hours (ICD-10-PCS; 2017-06-18)
PROC: 0BH17EZ Insertion of Endotracheal Airway into Trachea, Via Natural or Artificial Opening (ICD-10-PCS; 2017-06-18)
PROC: 3E0G76Z Introduction of Nutritional Substance into Upper GI, Via Natural or Artificial Opening (ICD-10-PCS; 2017-06-18)
PROC: 0B21XFZ Change Tracheostomy Device in Trachea, External Approach (ICD-10-PCS; principal; 2017-06-18 15:00)
DX: J44.1 Chronic obstructive pulmonary disease with (acute) exacerbation (principal); J96.10 Chronic respiratory failure, unspecified whether with hypoxia or hypercapnia; J69.0 Pneumonitis due to inhalation of food and vomit; A41.89 Other specified sepsis; I11.0 Hypertensive heart disease with heart failure; I50.9 Heart failure, unspecified; J95.03 Malfunction of tracheostomy stoma; E87.3 Alkalosis; E11.40 Type 2 diabetes mellitus with diabetic neuropathy, unspecified; F25.0 Schizoaffective disorder, bipolar type; E11.65 Type 2 diabetes mellitus with hyperglycemia; J34.2 Deviated nasal septum; R47.01 Aphasia; T38.0X5A Adverse effect of glucocorticoids and synthetic analogues, initial encounter; G89.29 Other chronic pain; G47.33 Obstructive sleep apnea (adult) (pediatric); E66.01 Morbid (severe) obesity due to excess calories; Z68.41 Body mass index [BMI] 40.0-44.9, adult; E78.5 Hyperlipidemia, unspecified; M25.50 Pain in unspecified joint; M54.9 Dorsalgia, unspecified; E11.10 Type 2 diabetes mellitus with ketoacidosis without coma; Z79.4 Long term (current) use of insulin; G40.909 Epilepsy, unspecified, not intractable, without status epilepticus; Z87.01 Personal history of pneumonia (recurrent); B96.89 Other specified bacterial agents as the cause of diseases classified elsewhere; F41.9 Anxiety disorder, unspecified; Z79.899 Other long term (current) drug therapy; Z90.49 Acquired absence of other specified parts of digestive tract; Z91.5 Personal history of self-harm; Z88.6 Allergy status to analgesic agent; Z88.8 Allergy status to other drugs, medicaments and biological substances; Z91.018 Allergy to other foods

== ENCOUNTER 2017-07-03 15:44 | Inpatient (IN) | payer OTHER ==
[2017-07-03 15:44] VITALS: BMI 45.6
[2017-07-03] MEDS ORDERED: Albuterol-Ipratrop 3 mg / 0.5 (3 ml) UD IH STA (16:32)
--- NOTE | 2017-07-03 16:46 | C.PDOC ---
History Of Present Illness <Yasmine Sharma - Last Filed: 07/03/17 18:14> <Eda Mason - Last Filed: 07/03/17 18:34> 61 y/o female with history of COPD, CHF, IDDM s/p Tracheostomy brought to ED by EMS for evaluation of sob and chest pain since yesterday. Patient denies fever, chills, nausea, vomiting , poor historian, appears in resp. distress. (Yasmine Sharma) History Per: Patient History/Exam Limitations: no limitations Onset/Duration Of Symptoms: Days Current Symptoms Are (Timing): Still Present Initiating Event: Upper Respiratory Illness <Yasmine Sharma - Last Filed: 07/03/17 18:14> <Eda Mason - Last Filed: 07/03/17 18:34> Time Seen by Provider: 07/03/17 16:21 Chief Complaint (Nursing): Shortness Of Breath Past Medical History Reviewed: Historical Data, Nursing Documentation, Vital Signs - Medical History PMH: Anxiety, Asthma, Bipolar Disorder, Bronchitis, CHF, COPD, Depression, Emphysema, HTN, Pneumonia, Seizures, Sleep Apnea Other PMH: morbid obesity Surgical History: Appendectomy, Cholecystectomy Family History: States: No Known Family Hx - Social History Hx Tobacco Use: No Hx Alcohol Use: No Hx Substance Use: No - Immunization History Hx Tetanus Toxoid Vaccination: No Hx Influenza Vaccination: No Hx Pneumococcal Vaccination: No <Yasmine Sharma - Last Filed: 07/03/17 18:14> Vital Signs: Last Vital Signs Temp 100.4 F H 07/03/17 16:16 Pulse 129 H 07/03/17 18:00 Resp 26 H 07/03/17 18:00 BP 140/107 H 07/03/17 18:00 Pulse Ox 97 07/03/17 18:18 - [facility] Procedures ASSISTANCE WITH RESPIRATORY VENTILATION, <24 HRS, CPAP (03/14/16) CENTRAL VENOUS CATHETER PLACEMENT WITH GUIDANCE (10/24/14) CHANGE TRACHEOSTOMY DEVICE IN TRACHEA, EXTERNAL APPROACH (06/12/17) CONTINUOUS INVASIVE MECHANICAL VENTILATION <96 CONSEC HRS (03/07/14) ENTERAL INFUSION OF CONCENTRATED NUT. SUBSTANCES (09/17/12) INSERT ENDOTRACHEAL TUBE (09/17/12) INSERTION OF ENDOTRACHEAL AIRWAY INTO TRACHEA, VIA OPENING (06/12/17) INSERTION OF INFUSION DEV INTO SUP VENA CAVA, PERC APPROACH (04/27/17) INTRODUCE OF OTH THERAP SUBST INTO RESP TRACT, VIA OPENING (05/03/15) INTRODUCTION OF NUTRITIONAL INTO UP GI, VIA OPENING (06/12/17) NEBULIZER THERAPY (09/17/12) REMOVAL OF TRACHEOSTOMY DEVICE FROM TRACHEA, ASSISTANT PROFESSOR OF NURSING APPROACH (06/12/17) RESPIRATORY VENTILATION, 24-96 CONSECUTIVE HOURS (06/12/17) RESPIRATORY VENTILATION, GREATER THAN 96 CONSECUTIVE HOURS (02/27/17) Review Of Systems Constitutional: Negative for: Fever, Chills Cardiovascular: Positive for: Chest Pain Respiratory: Positive for: Shortness of Breath Gastrointestinal: Negative for: Nausea, Vomiting Skin: Negative for: Rash <Yasmine Sharma - Last Filed: 07/03/17 18:14> Physical Exam - Physical Exam Appears: Non-toxic, Chronically Ill, Other (mild resp. distress) Skin: Warm, Dry, No Rash Head: Normacephalic Eye(s): bilateral: PERRL Nose: Flaring, No Discharge Oral Mucosa: Moist Tongue: Normal Appearing Neck: Trachea Midline, Other (+Tracheotomy tube) Cardiovascular: Rhythm Regular Respiratory: No Decreased Breath Sounds, Accessory Muscle Use, No Rales, No Rhonchi, No Stridor, Wheezing (scattered expiratory bilaterally) Gastrointestinal/Abdominal: Soft, No Tenderness, No Guarding, No Rebound Extremity: Normal ROM, No Pedal Edema, Capillary Refill (<2 seconds), No Deformity Neurological/Psych: Oriented x3, Normal Speech, Normal Cognition <Yasmine Sharma - Last Filed: 07/03/17 18:14> ED Course And Treatment - Laboratory Results Result Diagrams: 07/03/17 16:51 07/03/17 16:51 O2 Sat by Pulse Oximetry: 97 (RA) Pulse Ox Interpretation: Normal Progress Note: During the resp. suctioning, pt became more hypoxic. Noted trach stenosis with mucous. notified, ar bedside. Attempt to clean trach. Case discussed with pt's pulm and ferryboat operator who recommend place pt on vent. Pt slight improved after ED tx. Admission to ICu arranged, notified. <Yasmine Sharma - Last Filed: 07/03/17 18:14> - Laboratory Results Result Diagrams: 07/03/17 16:51 07/03/17 16:51 <Eda Mason - Last Filed: 07/03/17 18:34> Critical Care Time - Critical Care Note Total Time (in mins): 60 Documented critical care: time excludes all time spent performing seperately billable procedures. <Yasmine Sharma - Last Filed: 07/03/17 18:14> Disposition - Disposition Disposition Time: 17:54 <Yasmine Sharma - Last Filed: 07/03/17 18:14> <Eda Mason - Last Filed: 07/03/17 18:34> - Disposition Disposition: HOSPITALIZED Condition: FAIR Forms: [facility] (Indonesian) - Clinical Impression Clinical Impression: Tracheostomy dependence, Tracheal stenosis, COPD exacerbation, Chronic congestive heart failure, Hypoxia - PA / INDEPENDENT PRODUCER / Resident Statement MD/DO has reviewed & agrees with the documentation as recorded. - Scribe Statement The provider has reviewed the documentation as recorded by the Scribe <Yasmine Sharma - Last Filed: 07/03/17 18:14> <Eda Mason - Last Filed: 07/03/17 18:34> - Scribe Statement Shelton Mckeon All medical record entries made by the Scribe were at my direction and personally dictated by me. I have reviewed the chart and agree that the record accurately reflects my personal performance of the history, physical exam, medical decision making, and the department course for this patient. I have also personally directed, reviewed, and agree with the discharge instructions and disposition. (Yasmine Sharma) Addendum <Yasmine Sharma - Last Filed: 07/03/17 18:14> <Eda Mason - Last Filed: 07/03/17 18:34> Addendum: 07/03/17 18:30 Patient seen by me, large amount of thick secretions in tracheostomy tube, desaturated to 76%. Saline inserted and suctioned by natural gas technician, and some secretions also removed by me with cotton swab and forceps. Mucomyst + albuterol neb treatment, as well as saline neb given. New tracheostomy tube ordered from central supply, and inserted by respiratory. Spoke with Dr. Rosado , recommends placing patient back on ventilator. Patient improved after nebs and even more so after tracheostomy change. IV ativan given as recommneded by Dr. Rosado. Patient to be admitted to ICU. (Eda Mason)
[2017-07-03 16:54] LABS: BASO # 0.1 K/uL (0.0-0.2); BASO % 0.4 % (0.0-2.0); EOS # 0.1 K/uL (0.0-0.7); HEMOGLOBIN 12.1 g/dL (11.0-16.0); LYMPH # 1.9 K/uL (1.0-4.3); LYMPH % 15.2 % (20.0-40.0); MEAN CELL VOLUME 82.4 fL (81.0-99.0); MEAN CORPUSCULAR HEMOGLOBIN 27.3 pg (27.0-31.0); MEAN CORPUSCULAR HGB CONC 33.1 g/dL (33.0-37.0); MEAN PLATELET VOLUME 8.5 fL (7.2-11.7); MONO # 0.8 K/uL (0.0-0.8); MONO % 6.3 % (0.0-10.0); NEUT # 9.8 K/uL (1.8-7.0); NEUT % 77.1 % (50.0-75.0); RBC 4.44 Mil/uL (3.80-5.20); RED CELL DISTRIBUTION WIDTH 14.9 % (11.5-14.5); WHITE BLOOD COUNT 12.7 K/uL (4.8-10.8)
[2017-07-03 17:02] LABS: PROTHROMBIN TIME 11.4 SECONDS (9.7-12.2)
[2017-07-03 17:23] LABS: B-TYPE NATRIURETIC PEPTIDE 132 pg/mL (0-900)
[2017-07-03 17:27] LABS: ALB/GLOB RATIO 0.9 (1.0-2.1); ALBUMIN 3.6 g/dL (3.5-5.0); ALT/SGPT 19 U/L (9-52); AST/SGOT 36 U/L (14-36); BLOOD UREA NITROGEN 18 mg/dL (7-17); GFR AFRICAN-AMERICAN > 60; GFR NON-AFRICAN AMERICAN > 60
[2017-07-03] MEDS ORDERED: Acetylcysteine 20% Inhal Soln (4ml) INH STA (17:28)
[2017-07-03] MEDS ORDERED: Albuterol 0.083% Inhal Sol (2.5 mg/3 mL) UD ONE (17:34)
[2017-07-03 19:23] LABS: URINE BILIRUBIN NEGATIVE (NEGATIVE); URINE BLOOD NEGATIVE (NEGATIVE); URINE CLARITY Clear (Clear); URINE COLOR Yellow (YELLOW); URINE GLUCOSE (UA) 2+ mg/dL (Normal); URINE LEUKOCYTE ESTERASE NEG Leu/uL (Negative); URINE PROTEIN NEGATIVE (NEGATIVE); URINE UROBILINOGEN NORMAL mg/dL (0.2-1.0)
--- NOTE | 2017-07-03 21:41 | CP.PCM.CON ---
History of Present Illness - History of Present Illness History of Present Illness: 61 year old female with a past medical history of hypertension, IDDM, morbid obesity, hyperlipidemia, major depressive psychosis, bronchial asthma, chronic respiratory failure, with recurrent episodes of mucous plugging in the trache. Patient presented with c/o sob, with thick secretions for few days and low grade temp at home and felt in ER to being plugged. The trach was changed in ER and patient felt better, she was initially sedated and put on vent, as patient came to ICU was switched to trache collar and she has been breathing better. Patient c/o some epigastric discomfort with cough, otherwise, communicating well , not in distress. Past medical history: Anxiety, asthma, bipolar disorder, bronchitis, chf, copd, depression, emphysema, hypertension, pneumonia, seizures, sleep apnea Past surgical hisotry: Appendectomy, Cholecystectomy, trach Allergies :Aspirin, ceftriaxone sodium, ibuprofen, iodine, raspberry Social history: Denies tobacco, alcohol use. Denies illicit drug use. Review of Systems - Review of Systems All systems: reviewed and no additional remarkable complaints except (HPI) Past Patient History - Infectious Disease Hx of Infectious Diseases: None - Tetanus Immunizations Tetanus Immunization: Unknown - Past Medical History & Family History Past Medical History?: Yes - Past Social History Smoking Status: Never Smoked Alcohol: None - CARDIAC Hx Congestive Heart Failure: Yes Hx Hypertension: Yes - PULMONARY Hx Asthma: Yes Hx Bronchitis: Yes Hx Chronic Obstructive Pulmonary Disease (COPD): Yes Hx Emphysema: Yes Hx Pneumonia: Yes Hx Sleep Apnea: Yes - NEUROLOGICAL Hx Seizures: Yes - HEENT Hx HEENT Problems: Yes Hx Cataracts: Yes - RENAL Hx Chronic Kidney Disease: No - ENDOCRINE/METABOLIC Hx Hypothyroidism: No - HEMATOLOGICAL/ONCOLOGICAL Hx Human Immunodeficiency Virus (HIV): No - INTEGUMENTARY Hx Dermatological Problems: No - MUSCULOSKELETAL/RHEUMATOLOGICAL Hx Arthritis: No Hx Rheumatoid Arthritis: No - GASTROINTESTINAL Hx Gastrointestinal Disorders: Yes Other/Comment: cholecystectomy - GENITOURINARY/GYNECOLOGICAL Hx Sexually Transmitted Disorders: No - PSYCHIATRIC Hx Anxiety: Yes Hx Bipolar Disorder: Yes Hx Depression: Yes Hx Substance Use: No - SURGICAL HISTORY Hx Appendectomy: Yes Hx Cholecystectomy: Yes - ANESTHESIA Hx Anesthesia: Yes Hx Anesthesia Reactions: No Hx Malignant Hyperthermia: No Meds Allergies/Adverse Reactions: Allergies Allergy/AdvReac Type Severity Reaction Status Date / Time aspirin Allergy ANAPHYLAXIS Verified 05/08/18 15:57 ceftriaxone sodium Allergy ANAPHYLAXIS Verified 07/03/17 15:57 [From Rocephin] ibuprofen [From Motrin] Allergy ANAPHYLAXIS Verified 07/03/17 15:57 iodine Allergy ANAPHYLAXIS Verified 07/03/17 15:57 raspberry Allergy ANAPHYLAXIS Verified 07/03/17 15:57 Physical Exam - Additional Findings Additional findings: * HEENT PATRICIA * Neck Supple, trach in place, collar at 40% Fio2 * Chest some scattered ronchi * PA soft, nt, bs present * CVS regular, no gallop or rub * Ext no edema * COMMUNICATIONS PROGRAM MANAGER awake, oriented, moving all ext, communicating * Skin normal turgor * Results - Vital Signs Recent Vital Signs: Last Vital Signs Temp 100.4 F H 07/03/17 16:16 Pulse 107 H 07/03/17 19:50 Resp 20 07/03/17 19:50 BP 140/107 H 07/03/17 18:00 Pulse Ox 95 07/03/17 19:50 - Labs Result Diagrams: 07/03/17 16:51 07/03/17 16:51 Labs: Laboratory Results - last 24 hr 07/03/17 07/03/17 07/03/17 16:51 16:51 16:51 WBC 12.7 H RBC 4.44 Hgb 12.1 Hct 36.6 MCV 82.4 MCH 27.3 MCHC 33.1 RDW 14.9 H Plt Count 135 MPV 8.5 Neut % (Auto) 77.1 H Lymph % (Auto) 15.2 L [place] % (Auto) 6.3 Eos % (Auto) 1.0 Baso % (Auto) 0.4 Neut # (Auto) 9.8 H Lymph # (Auto) 1.9 [place] # (Auto) 0.8 Eos # (Auto) 0.1 Baso # (Auto) 0.1 PT 11.4 INR 1.0 APTT 32 Sodium 145 Potassium 5.1 Chloride 105 Carbon Dioxide 30 Anion Gap 15 BUN 18 H Creatinine 0.8 Est GFR ( Amer) > 60 Est GFR (Non-Af Amer) > 60 Random Glucose 281 H Calcium 9.0 Total Bilirubin 1.0 AST 36 D ALT 19 Alkaline Phosphatase 156 H NT-Pro-B Natriuret Pep 132 Total Protein 7.5 Albumin 3.6 Globulin 3.9 Albumin/Globulin Ratio 0.9 L Urine Color Urine Clarity Urine pH Ur Specific [place] Urine Protein Urine Glucose (UA) Urine Ketones Urine Blood Urine Nitrate Urine Bilirubin Urine Urobilinogen Ur Leukocyte Esterase Urine WBC (Auto) 07/03/17 19:17 WBC RBC Hgb Hct MCV MCH MCHC RDW Plt Count MPV Neut % (Auto) Lymph % (Auto) [place] % (Auto) Eos % (Auto) Baso % (Auto) Neut # (Auto) Lymph # (Auto) [place] # (Auto) Eos # (Auto) Baso # (Auto) PT INR APTT Sodium Potassium Chloride Carbon Dioxide Anion Gap BUN Creatinine Est GFR ( Amer) Est GFR (Non-Af Amer) Random Glucose Calcium Total Bilirubin AST ALT Alkaline Phosphatase NT-Pro-B Natriuret Pep Total Protein Albumin Globulin Albumin/Globulin Ratio Urine Color Yellow Urine Clarity Clear Urine pH 5.0 Ur Specific [place] 1.016 Urine Protein Negative Urine Glucose (UA) 2+ H Urine Ketones Negative Urine Blood Negative Urine Nitrate Negative Urine Bilirubin Negative Urine Urobilinogen Normal Ur Leukocyte Esterase Neg Urine WBC (Auto) < 1 Assessment & Plan - Assessment and Plan (Free Text) Assessment: Assessment * Recurrent mucous plugging of the trache, probably precipitated by broncial or pulm infection * Obese * IDDM * H/o depression, schizoaffetive disorder * Plan: Plan * Continue on trach collar * Empiric doxycycline, low dose steroid * Continue home meds * Observe overnight in icu * GI/DVT prophylaxis * See orders for detail. *
[2017-07-03] MEDS: (Novolog) Insulin Aspart, Recombinant 100 u/ml 10 ml vial SC SCH (22:02)
[2017-07-03] MEDS: (Lantus) Insulin Glargine, Recombinant SC SCH (22:11)
[2017-07-03] MEDS: QUEtiapine 200 mg XR Tab PO SCH (22:11)
[2017-07-03] MEDS: guaiFENesin 200 mg/10 ml Syrup UD PO SCH (22:29)
--- NOTE | 2017-07-03 22:31 | CP.PCM.HP ---
History of Present Illness - History of Present Illness History of Present Illness: CC: cough, congestion, SOB HPI: 61 year old female with a past medical history of hypertension, IDDM, morbid obesity, hyperlipidemia, major depressive psychosis, bronchial asthma, chronic respiratory failure, with recurrent episodes of mucous plugging in the trache. Patient presented with c/o sob, with thick secretions for few days and low grade temp at home and felt in ER to being plugged. The trach was changed in ER and patient felt better, she was initially sedated and put on vent, as patient came to ICU was switched to trache collar and she has been breathing better. Patient c/o some epigastric discomfort with cough, otherwise, communicating well, not in distress. Past medical history: Anxiety, asthma, bipolar disorder, bronchitis, chf, copd, depression, emphysema, hypertension, pneumonia, seizures, sleep apnea Past surgical hisotry: Appendectomy, Cholecystectomy, trach Allergies :Aspirin, ceftriaxone sodium, ibuprofen, iodine, raspberry Social history: Denies tobacco, alcohol use. Denies illicit drug use. Present on Admission - Present on Admission Any Indicators Present on Admission: Yes Review of Systems - Review of Systems Systems not reviewed;Unavailable: Acuity of Condition, Uncooperative - Constitutional Constitutional: Fatigue, Lethargy, Weakness - EENT Eyes: absent: As Per HPI, Blind Spots, Blurred Vision, Change in Vision, Decreased Night Vision, Diplopia, Discharge, Dry Eye, Exophthalmos, Floaters, Irritation, Itchy Eyes, Loss of Peripheral Vision, Pain, Photophobia, Requires Corrective Lenses, Sees Flashes, Spots in Vision, Tunnel Vision, Other Visual Disturbances, Loss of Vision, Other Nose/Mouth/Throat: absent: As Per HPI, Epistaxis, Nasal Congestion, Nasal Discharge, Nasal Obstruction, Nasal Trauma, Nose Pain, Post Nasal Drip, Sinus Pain, Sinus Pressure, Bleeding Gums, Change in Voice, Dental Pain, Dry Mouth, Dysphagia, Halitosis, Hoarsness, Lip Swelling, Mouth Lesions, Mouth Pain, Odynophagia, Sore Throat, Throat Swelling, Tongue Swelling, Facial Pain, Neck Pain, Neck Mass, Other - Breasts Breasts: absent: As Per HPI, Change in Shape, Mass, Pain, Nipple Discharge, Nipple Inversion, Skin Changes, Swelling, Other - Cardiovascular Cardiovascular: Dyspnea - Respiratory Respiratory: Cough, Dyspnea, Dyspnea on Exertion, Chest Congestion, Excessive Mucous Production, Change in Mucous Color, Pain with Coughing - Gastrointestinal Gastrointestinal: absent: As Per HPI, Abdominal Pain, Belching, Bloating, Change in Bowel Habits, Change in Stool Character, Coffee Ground Emesis, Constipation, Cramping, Diarrhea, Dyspepsia, Dysphagia, Early Satiety, Excessive Flatus, Fecal Incontinence, Heartburn, Hematemesis, Hematochezia, Loose Stools, Melena, Nausea, Odynophagia, Temesmus, Vomiting, Other Past Patient History - Infectious Disease Hx of Infectious Diseases: None - Tetanus Immunizations Tetanus Immunization: Unknown - Past Medical History & Family History Past Medical History?: Yes - Past Social History Smoking Status: Never Smoked Alcohol: None - CARDIAC Hx Congestive Heart Failure: Yes Hx Hypertension: Yes - PULMONARY Hx Asthma: Yes Hx Bronchitis: Yes Hx Chronic Obstructive Pulmonary Disease (COPD): Yes Hx Emphysema: Yes Hx Pneumonia: Yes Hx Sleep Apnea: Yes - NEUROLOGICAL Hx Seizures: Yes - HEENT Hx HEENT Problems: Yes Hx Cataracts: Yes - RENAL Hx Chronic Kidney Disease: No - ENDOCRINE/METABOLIC Hx Hypothyroidism: No - HEMATOLOGICAL/ONCOLOGICAL Hx Human Immunodeficiency Virus (HIV): No - INTEGUMENTARY Hx Dermatological Problems: No - MUSCULOSKELETAL/RHEUMATOLOGICAL Hx Arthritis: No Hx Rheumatoid Arthritis: No - GASTROINTESTINAL Hx Gastrointestinal Disorders: Yes Other/Comment: cholecystectomy - GENITOURINARY/GYNECOLOGICAL Hx Sexually Transmitted Disorders: No - PSYCHIATRIC Hx Anxiety: Yes Hx Bipolar Disorder: Yes Hx Depression: Yes Hx Substance Use: No - SURGICAL HISTORY Hx Appendectomy: Yes Hx Cholecystectomy: Yes - ANESTHESIA Hx Anesthesia: Yes Hx Anesthesia Reactions: No Hx Malignant Hyperthermia: No Meds Allergies/Adverse Reactions: Allergies Allergy/AdvReac Type Severity Reaction Status Date / Time aspirin Allergy ANAPHYLAXIS Verified 07/03/17 15:57 ceftriaxone sodium Allergy ANAPHYLAXIS Verified 07/03/17 15:57 [From Rocephin] ibuprofen [From Motrin] Allergy ANAPHYLAXIS Verified 07/03/17 15:57 iodine Allergy ANAPHYLAXIS Verified 07/03/17 15:57 raspberry Allergy ANAPHYLAXIS Verified 07/03/17 15:57 Physical Exam - Constitutional Appears: No Acute Distress, Chronically Ill - Head Exam Head Exam: ATRAUMATIC, NORMAL INSPECTION, NORMOCEPHALIC - Eye Exam Eye Exam: EOMI, Normal appearance, PERRL Pupil Exam: NORMAL ACCOMODATION, PERRL - Respiratory Exam Respiratory Exam: Decreased Breath Sounds, Rales, Wheezes - Cardiovascular Exam Cardiovascular Exam: REGULAR RHYTHM - GI/Abdominal Exam GI & Abdominal Exam: Normal Bowel Sounds, Soft. absent: Tenderness - Rectal Exam Rectal Exam: Deferred Results - Vital Signs Recent Vital Signs: Last Vital Signs Temp 100.4 F H 07/03/17 16:16 Pulse 94 H 07/03/17 21:50 Resp 19 07/03/17 21:50 BP 134/84 07/03/17 21:39 Pulse Ox 95 07/03/17 21:50 - Labs Result Diagrams: 07/04/17 06:14 07/04/17 06:14 Labs: Laboratory Results - last 24 hr 07/03/17 07/03/17 07/03/17 16:51 16:51 16:51 WBC 12.7 H RBC 4.44 Hgb 12.1 Hct 36.6 MCV 82.4 MCH 27.3 MCHC 33.1 RDW 14.9 H Plt Count 135 MPV 8.5 Neut % (Auto) 77.1 H Lymph % (Auto) 15.2 L Burke % (Auto) 6.3 Eos % (Auto) 1.0 Baso % (Auto) 0.4 Neut # (Auto) 9.8 H Lymph # (Auto) 1.9 Burke # (Auto) 0.8 Eos # (Auto) 0.1 Baso # (Auto) 0.1 PT 11.4 INR 1.0 APTT 32 Sodium 145 Potassium 5.1 Chloride 105 Carbon Dioxide 30 Anion Gap 15 BUN 18 H Creatinine 0.8 Est GFR ( Amer) > 60 Est GFR (Non-Af Amer) > 60 POC Glucose (mg/dL) Random Glucose 281 H Calcium 9.0 Total Bilirubin 1.0 AST 36 D ALT 19 Alkaline Phosphatase 156 H NT-Pro-B Natriuret Pep 132 Total Protein 7.5 Albumin 3.6 Globulin 3.9 Albumin/Globulin Ratio 0.9 L Urine Color Urine Clarity Urine pH Ur Specific [place] Urine Protein Urine Glucose (UA) Urine Ketones Urine Blood Urine Nitrate Urine Bilirubin Urine Urobilinogen Ur Leukocyte Esterase Urine WBC (Auto) 07/03/17 07/03/17 19:17 21:58 WBC RBC Hgb Hct MCV MCH MCHC RDW Plt Count MPV Neut % (Auto) Lymph % (Auto) [place] % (Auto) Eos % (Auto) Baso % (Auto) Neut # (Auto) Lymph # (Auto) [place] # (Auto) Eos # (Auto) Baso # (Auto) PT INR APTT Sodium Potassium Chloride Carbon Dioxide Anion Gap BUN Creatinine Est GFR ( Amer) Est GFR (Non-Af Amer) POC Glucose (mg/dL) 171 H Random Glucose Calcium Total Bilirubin AST ALT Alkaline Phosphatase NT-Pro-B Natriuret Pep Total Protein Albumin Globulin Albumin/Globulin Ratio Urine Color Yellow Urine Clarity Clear Urine pH 5.0 Ur Specific [place] 1.016 Urine Protein Negative Urine Glucose (UA) 2+ H Urine Ketones Negative Urine Blood Negative Urine Nitrate Negative Urine Bilirubin Negative Urine Urobilinogen Normal Ur Leukocyte Esterase Neg Urine WBC (Auto) < 1 Assessment & Plan (1) COPD exacerbation Status: Acute (2) Chronic congestive heart failure Status: Acute (3) Tracheostomy dependence Status: Acute
[2017-07-04] MEDS: guaiFENesin 200 mg/10 ml Syrup UD PO SCH ×6 (01:08→22:44)
[2017-07-04] MEDS: Albuterol-Ipratrop 3 mg / 0.5 (3 ml) UD INH SCH ×4 (01:51→20:35)
[2017-07-04] MEDS: Oxycodone/Acetaminophen 5/325 mg Tab PO PRN ×3 (01:55→20:48)
[2017-07-04 06:26] LABS: BASO % 0.2 % (0.0-2.0); HEMOGLOBIN 11.7 g/dL (11.0-16.0); LYMPH # 0.9 K/uL (1.0-4.3); LYMPH % 8.2 % (20.0-40.0); MEAN CELL VOLUME 82.3 fL (81.0-99.0); MEAN CORPUSCULAR HEMOGLOBIN 27.2 pg (27.0-31.0); MEAN CORPUSCULAR HGB CONC 33.1 g/dL (33.0-37.0); MEAN PLATELET VOLUME 8.7 fL (7.2-11.7); MONO # 0.1 K/uL (0.0-0.8); MONO % 1.3 % (0.0-10.0); NEUT # 9.4 K/uL (1.8-7.0); NEUT % 90.3 % (50.0-75.0); PLATELET COUNT 137 K/uL (130-400); RBC 4.28 Mil/uL (3.80-5.20); RED CELL DISTRIBUTION WIDTH 15.1 % (11.5-14.5); WHITE BLOOD COUNT 10.4 K/uL (4.8-10.8)
[2017-07-04 06:40] LABS: ALB/GLOB RATIO 0.9 (1.0-2.1); ALBUMIN 3.4 g/dL (3.5-5.0); ALT/SGPT 21 U/L (9-52); AST/SGOT 21 U/L (14-36); BLOOD UREA NITROGEN 16 mg/dL (7-17); CALCIUM 9.2 mg/dl (8.6-10.4); GFR AFRICAN-AMERICAN > 60; GFR NON-AFRICAN AMERICAN > 60
[2017-07-04] MEDS: (Novolog) Insulin Aspart, Recombinant 100 u/ml 10 ml vial SC SCH ×4 (07:28→22:33)
[2017-07-04 08:51] LABS: LYMPHOCYTE 7 % (20-40); MONOCYTE 1 % (0-10); NEUTROPHIL 92 % (50-75); PLATELET ESTIMATE NORMAL (NORMAL); TOTAL CELLS COUNTED 100
[2017-07-04 08:52] LABS: ANISOCYTOSIS SLIGHT; HYPOCHROMIC SLIGHT; POIKILOCYTOSIS SLIGHT
--- NOTE | 2017-07-04 09:04 | RAD ---
HISTORY: pain, trach COMPARISON: Chest radiograph dated 06/26/2017. FINDINGS: LUNGS: Movements of the pulmonary vasculature may be secondary to AP technique and/or pulmonary vascular congestion. No focal consolidation. PLEURA: No significant pleural effusion identified, no pneumothorax apparent. CARDIOVASCULAR: Cardiomediastinal silhouette stably enlarged. OSSEOUS STRUCTURES: Unchanged. VISUALIZED UPPER ABDOMEN: Normal. OTHER FINDINGS: Tracheostomy, unchanged. IMPRESSION: Prominence of the pulmonary vasculature may be secondary to AP technique and/or pulmonary vascular congestion. No focal consolidation or pleural effusion.
[2017-07-04] MEDS: Pantoprazole 20 mg EC Tab PO SCH (09:06)
[2017-07-04] MEDS: QUEtiapine 200 mg XR Tab PO SCH ×2 (09:10→22:44)
[2017-07-04] MEDS: Lactobacillus Acidophilus 500 MU Cap PO SCH ×2 (09:10→18:16)
--- NOTE | 2017-07-04 16:02 | CP.PCM.CON ---
History of Present Illness - History of Present Illness History of Present Illness: reason for consultation: shortness of breath 61 year old female with a past medical history of hypertension, IDDM, morbid obesity, hyperlipidemia, major depressive psychosis, bronchial asthma, chronic respiratory failure, with recurrent episodes of mucous plugging in the trache. Patient presented with c/o sob, with thick secretions for few days and low grade temp at home and felt in ER to being plugged. The trach was changed in ER and patient felt better Past medical history: Anxiety, asthma, bipolar disorder, bronchitis, chf, copd, depression, emphysema, hypertension, pneumonia, seizures, sleep apnea Past surgical hisotry: Appendectomy, Cholecystectomy, trach Allergies :Aspirin, ceftriaxone sodium, ibuprofen, iodine, raspberry Social history: Denies tobacco, alcohol use. Denies illicit drug use. Review of Systems - Review of Systems All systems: reviewed and no additional remarkable complaints except (Shortness of breath) Past Patient History - Infectious Disease Hx of Infectious Diseases: None - Tetanus Immunizations Tetanus Immunization: Unknown - Past Medical History & Family History Past Medical History?: Yes - Past Social History Smoking Status: Never Smoked Alcohol: None - CARDIAC Hx Congestive Heart Failure: Yes Hx Hypertension: Yes - PULMONARY Hx Asthma: Yes Hx Bronchitis: Yes Hx Chronic Obstructive Pulmonary Disease (COPD): Yes Hx Emphysema: Yes Hx Pneumonia: Yes Hx Sleep Apnea: Yes - NEUROLOGICAL Hx Seizures: Yes - HEENT Hx HEENT Problems: Yes Hx Cataracts: Yes - RENAL Hx Chronic Kidney Disease: No - ENDOCRINE/METABOLIC Hx Hypothyroidism: No - HEMATOLOGICAL/ONCOLOGICAL Hx Human Immunodeficiency Virus (HIV): No - INTEGUMENTARY Hx Dermatological Problems: No - MUSCULOSKELETAL/RHEUMATOLOGICAL Hx Arthritis: No Hx Rheumatoid Arthritis: No - GASTROINTESTINAL Hx Gastrointestinal Disorders: Yes Other/Comment: cholecystectomy - GENITOURINARY/GYNECOLOGICAL Hx Sexually Transmitted Disorders: No - PSYCHIATRIC Hx Anxiety: Yes Hx Bipolar Disorder: Yes Hx Depression: Yes Hx Substance Use: No - SURGICAL HISTORY Hx Appendectomy: Yes Hx Cholecystectomy: Yes - ANESTHESIA Hx Anesthesia: Yes Hx Anesthesia Reactions: No Hx Malignant Hyperthermia: No Meds Allergies/Adverse Reactions: Allergies Allergy/AdvReac Type Severity Reaction Status Date / Time aspirin Allergy ANAPHYLAXIS Verified 07/03/17 15:57 ceftriaxone sodium Allergy ANAPHYLAXIS Verified 07/03/17 15:57 [From Rocephin] ibuprofen [From Motrin] Allergy ANAPHYLAXIS Verified 07/03/17 15:57 iodine Allergy ANAPHYLAXIS Verified 07/03/17 15:57 raspberry Allergy ANAPHYLAXIS Verified 07/03/17 15:57 - Medications Medications: Current Medications Albuterol/Ipratropium (Duoneb 3 Mg/0.5 Mg (3 Ml) Ud) 3 ml INH RQ6 [facility] Last Admin: 07/04/17 13:17 Dose: 3 ml Doxycycline Hyclate (Doryx) 100 mg PO Q12H [facility] PRN Reason: Protocol Last Admin: 07/04/17 09:05 Dose: 100 mg Gabapentin (Neurontin) 800 mg PO TID [facility] Last Admin: 07/04/17 13:06 Dose: 800 mg Guaifenesin (Robitussin) 200 mg PO Q4H [facility] Last Admin: 07/04/17 13:06 Dose: 200 mg Heparin Sodium (Porcine) (Heparin) 5,000 units SC Q8 [facility] Last Admin: 07/04/17 13:06 Dose: 5,000 units Insulin Aspart (Novolog) 0 unit SC ACHS [facility] PRN Reason: Protocol Last Admin: 07/04/17 11:36 Dose: 3 unit Insulin Glargine (Lantus) 30 unit SC [facility] Last Admin: 07/03/17 22:11 Dose: 30 u Lactobacillus Acidophilus (Bacid Acidophilus) 1 cap PO BID [facility] Last Admin: 07/04/17 09:10 Dose: 1 cap Montelukast Sodium (Singulair) 10 mg PO [facility] Last Admin: 07/03/17 22:10 Dose: 10 mg Oxycodone/Acetaminophen (Percocet 5/325 Mg Tab) 1 tab PO Q4H PRN PRN Reason: Pain, moderate (4-7) Stop: 07/06/17 22:54 Last Admin: 07/04/17 15:40 Dose: 1 tab Pantoprazole Sodium (Protonix Ec Tab) 20 mg PO DAILY [facility] Last Admin: 07/04/17 09:06 Dose: 20 mg Prednisone (Prednisone Tab) 40 mg PO DAILY [facility] Last Admin: 07/04/17 09:06 Dose: 40 mg Quetiapine Fumarate (Seroquel Xr) 400 mg PO Q12 [facility] Last Admin: 07/04/17 09:10 Dose: 400 mg Sertraline HCl (Zoloft) 100 mg PO [facility] Last Admin: 07/03/17 22:11 Dose: 100 mg Trazodone HCl (Desyrel) 150 mg PO HS [facility] Last Admin: 07/03/17 22:11 Dose: 150 mg Physical Exam - Head Exam Head Exam: ATRAUMATIC, NORMOCEPHALIC - ENT Exam ENT Exam: Mucous Membranes Moist - Respiratory Exam Respiratory Exam: Rales, Rhonchi - Cardiovascular Exam Cardiovascular Exam: REGULAR RHYTHM - GI/Abdominal Exam GI & Abdominal Exam: Normal Bowel Sounds - Extremities Exam Extremities exam: Positive for: pedal edema Results - Vital Signs Recent Vital Signs: Last Vital Signs Temp 98.2 F 07/04/17 11:55 Pulse 91 H 07/04/17 14:38 Resp 18 07/04/17 14:38 BP 114/61 07/04/17 14:38 Pulse Ox 98 07/04/17 14:38 - Labs Result Diagrams: 07/04/17 06:14 07/04/17 06:14 Labs: Laboratory Results - last 24 hr 07/03/17 07/03/17 07/03/17 16:51 16:51 16:51 WBC 12.7 H RBC 4.44 Hgb 12.1 Hct 36.6 MCV 82.4 MCH 27.3 MCHC 33.1 RDW 14.9 H Plt Count 135 MPV 8.5 Neut % (Auto) 77.1 H Lymph % (Auto) 15.2 L Harvey % (Auto) 6.3 Eos % (Auto) 1.0 Baso % (Auto) 0.4 Neut # (Auto) 9.8 H Lymph # (Auto) 1.9 Harvey # (Auto) 0.8 Eos # (Auto) 0.1 Baso # (Auto) 0.1 Neutrophils % (Manual) Lymphocytes % (Manual) Monocytes % (Manual) Platelet Estimate Hypochromasia (manual) Poikilocytosis (manual Anisocytosis (manual) PT 11.4 INR 1.0 APTT 32 Sodium 145 Potassium 5.1 Chloride 105 Carbon Dioxide 30 Anion Gap 15 BUN 18 H Creatinine 0.8 Est GFR ( Amer) > 60 Est GFR (Non-Af Amer) > 60 POC Glucose (mg/dL) Random Glucose 281 H Calcium 9.0 Phosphorus Magnesium Total Bilirubin 1.0 AST 36 D ALT 19 Alkaline Phosphatase 156 H NT-Pro-B Natriuret Pep 132 Total Protein 7.5 Albumin 3.6 Globulin 3.9 Albumin/Globulin Ratio 0.9 L Urine Color Urine Clarity Urine pH Ur Specific [place] Urine Protein Urine Glucose (UA) Urine Ketones Urine Blood Urine Nitrate Urine Bilirubin Urine Urobilinogen Ur Leukocyte Esterase Urine WBC (Auto) 07/03/17 07/03/17 07/04/17 19:17 21:58 06:14 WBC 10.4 RBC 4.28 Hgb 11.7 Hct 35.3 MCV 82.3 MCH 27.2 MCHC 33.1 RDW 15.1 H Plt Count 137 MPV 8.7 Neut % (Auto) 90.3 H Lymph % (Auto) 8.2 L [place] % (Auto) 1.3 Eos % (Auto) 0.0 Baso % (Auto) 0.2 Neut # (Auto) 9.4 H Lymph # (Auto) 0.9 L [place] # (Auto) 0.1 Eos # (Auto) 0.0 Baso # (Auto) 0.0 Neutrophils % (Manual) 92 H Lymphocytes % (Manual) 7 L Monocytes % (Manual) 1 Platelet Estimate Normal Hypochromasia (manual) Slight Poikilocytosis (manual Slight Anisocytosis (manual) Slight PT INR APTT Sodium Potassium Chloride Carbon Dioxide Anion Gap BUN Creatinine Est GFR ( Amer) Est GFR (Non-Af Amer) POC Glucose (mg/dL) 171 H Random Glucose Calcium Phosphorus Magnesium Total Bilirubin AST ALT Alkaline Phosphatase NT-Pro-B Natriuret Pep Total Protein Albumin Globulin Albumin/Globulin Ratio Urine Color Yellow Urine Clarity Clear Urine pH 5.0 Ur Specific [place] 1.016 Urine Protein Negative Urine Glucose (UA) 2+ H Urine Ketones Negative Urine Blood Negative Urine Nitrate Negative Urine Bilirubin Negative Urine Urobilinogen Normal Ur Leukocyte Esterase Neg Urine WBC (Auto) < 1 07/04/17 07/04/17 07/04/17 06:14 07:24 11:13 WBC RBC Hgb Hct MCV MCH MCHC RDW Plt Count MPV Neut % (Auto) Lymph % (Auto) [place] % (Auto) Eos % (Auto) Baso % (Auto) Neut # (Auto) Lymph # (Auto) [place] # (Auto) Eos # (Auto) Baso # (Auto) Neutrophils % (Manual) Lymphocytes % (Manual) Monocytes % (Manual) Platelet Estimate Hypochromasia (manual) Poikilocytosis (manual Anisocytosis (manual) PT INR APTT Sodium 143 Potassium 4.6 Chloride 105 Carbon Dioxide 28 Anion Gap 15 BUN 16 Creatinine 0.7 Est GFR ( Amer) > 60 Est GFR (Non-Af Amer) > 60 POC Glucose (mg/dL) 280 H 263 H Random Glucose 323 H Calcium 9.2 Phosphorus 3.4 Magnesium 1.8 Total Bilirubin 1.0 AST 21 ALT 21 Alkaline Phosphatase 130 H NT-Pro-B Natriuret Pep Total Protein 7.0 Albumin 3.4 L Globulin 3.6 Albumin/Globulin Ratio 0.9 L Urine Color Urine Clarity Urine pH Ur Specific [place] Urine Protein Urine Glucose (UA) Urine Ketones Urine Blood Urine Nitrate Urine Bilirubin Urine Urobilinogen Ur Leukocyte Esterase Urine WBC (Auto) Assessment & Plan (1) Mucus plugging of bronchi Status: Acute Comment: tracheostomy was changed in the emergency room. Continue nebulizer treatment. Continue steroids. Patient not weanable because of anxiety (2) Tracheobronchitis Status: Acute
--- NOTE | 2017-07-04 19:12 | CARD ---
APPROVED REPORT EKG Measurement Heart [id number] <Conclusion> Sinus tachycardia Abnormal ECG
[2017-07-04] MEDS: (Lantus) Insulin Glargine, Recombinant SC SCH (22:43)
[2017-07-05] MEDS: Albuterol-Ipratrop 3 mg / 0.5 (3 ml) UD INH SCH ×4 (01:49→19:34)
[2017-07-05] MEDS: guaiFENesin 200 mg/10 ml Syrup UD PO SCH ×6 (02:00→21:06)
--- NOTE | 2017-07-05 04:52 | CP.PCM.PN ---
Subjective - Date & Time of Evaluation Date of Evaluation: 07/04/17 Time of Evaluation: 17:00 - Subjective Subjective: Pt c/o cough , congestion, wheezing, pt is anxious and depressed as she has been complaint with medications since she was discharged from hospital with no improvement Objective - Vital Signs/Intake and Output Vital Signs (last 24 hours): Temp Pulse Resp BP Pulse Ox 98.2 F 85 14 119/61 94 L 07/04/17 11:55 07/04/17 19:00 07/04/17 19:00 07/04/17 15:38 07/04/17 17:00 Intake and Output: 07/04/17 07/05/17 18:59 06:59 Intake Total 900 250 Output Total 850 600 Balance 50 -350 - Medications Medications: Current Medications Albuterol/Ipratropium (Duoneb 3 Mg/0.5 Mg (3 Ml) Ud) 3 ml INH RQ6 [facility] Last Admin: 07/05/17 01:49 Dose: 3 ml Doxycycline Hyclate (Doryx) 100 mg PO Q12H [facility] PRN Reason: Protocol Last Admin: 07/04/17 22:42 Dose: 100 mg Gabapentin (Neurontin) 800 mg PO TID [facility] Last Admin: 07/04/17 18:16 Dose: 800 mg Guaifenesin (Robitussin) 200 mg PO Q4H [facility] Last Admin: 07/05/17 02:00 Dose: Not Given Heparin Sodium (Porcine) (Heparin) 5,000 units SC Q8 [facility] Last Admin: 07/04/17 22:42 Dose: 5,000 units Insulin Aspart (Novolog) 0 unit SC ACHS [facility] PRN Reason: Protocol Last Admin: 07/04/17 22:33 Dose: Not Given Insulin Glargine (Lantus) 30 unit SC [facility] Last Admin: 07/04/17 22:43 Dose: 30 u Lactobacillus Acidophilus (Bacid Acidophilus) 1 cap PO BID [facility] Last Admin: 07/04/17 18:16 Dose: 1 cap Montelukast Sodium (Singulair) 10 mg PO HS [facility] Last Admin: 07/04/17 22:44 Dose: 10 mg Oxycodone/Acetaminophen (Percocet 5/325 Mg Tab) 1 tab PO Q4H PRN PRN Reason: Pain, moderate (4-7) Stop: 07/06/17 22:54 Last Admin: 07/04/17 20:48 Dose: 1 tab Pantoprazole Sodium (Protonix Ec Tab) 20 mg PO DAILY [facility] Last Admin: 07/04/17 09:06 Dose: 20 mg Prednisone (Prednisone Tab) 40 mg PO DAILY [facility] Last Admin: 07/04/17 09:06 Dose: 40 mg Quetiapine Fumarate (Seroquel Xr) 400 mg PO Q12 [facility] Last Admin: 07/04/17 22:44 Dose: 400 mg Sertraline HCl (Zoloft) 100 mg PO HS [facility] Last Admin: 07/04/17 22:45 Dose: 100 mg Trazodone HCl (Desyrel) 150 mg PO HS [facility] Last Admin: 07/04/17 22:41 Dose: 150 mg - Labs Labs: 07/04/17 06:14 07/04/17 06:14 PT 11.4 SECONDS (9.7-12.2) 07/03/17 16:51 INR 1.0 07/03/17 16:51 APTT 32 SECONDS (21-34) 07/03/17 16:51 - Constitutional Appears: No Acute Distress - Head Exam Head Exam: ATRAUMATIC, NORMAL INSPECTION, NORMOCEPHALIC - Eye Exam Eye Exam: EOMI, Normal appearance, PERRL Pupil Exam: NORMAL ACCOMODATION, PERRL - Respiratory Exam Respiratory Exam: Decreased Breath Sounds, Rales, Rhonchi - Cardiovascular Exam Cardiovascular Exam: REGULAR RHYTHM, +S1, +S2. absent: Murmur - GI/Abdominal Exam GI & Abdominal Exam: Soft, Normal Bowel Sounds. absent: Tenderness - Neurological Exam Neurological Exam: Alert, Awake, Oriented x3 - Psychiatric Exam Psychiatric exam: Anxious, Depressed Assessment and Plan (1) COPD exacerbation Status: Acute (2) Chronic congestive heart failure Status: Acute (3) Tracheostomy dependence Status: Acute
[2017-07-05] MEDS: (Novolog) Insulin Aspart, Recombinant 100 u/ml 10 ml vial SC SCH ×4 (07:47→22:21)
[2017-07-05] MEDS: Lactobacillus Acidophilus 500 MU Cap PO SCH ×2 (09:33→17:07)
[2017-07-05] MEDS: Pantoprazole 20 mg EC Tab PO SCH (09:33)
[2017-07-05] MEDS: QUEtiapine 200 mg XR Tab PO SCH ×2 (09:33→21:05)
[2017-07-05] MEDS: Oxycodone/Acetaminophen 5/325 mg Tab PO PRN (20:37)
[2017-07-05] MEDS: (Lantus) Insulin Glargine, Recombinant SC SCH (21:06)
[2017-07-06] MEDS: guaiFENesin 200 mg/10 ml Syrup UD PO SCH ×6 (01:19→21:06)
[2017-07-06] MEDS: Albuterol-Ipratrop 3 mg / 0.5 (3 ml) UD INH SCH ×4 (01:36→21:46)
[2017-07-06] MEDS: Oxycodone/Acetaminophen 5/325 mg Tab PO PRN ×3 (02:59→21:06)
[2017-07-06] MEDS: (Novolog) Insulin Aspart, Recombinant 100 u/ml 10 ml vial SC SCH ×4 (07:55→21:43)
--- NOTE | 2017-07-06 09:34 | CP.PCM.PN ---
Subjective - Date & Time of Evaluation Date of Evaluation: 07/05/17 Time of Evaluation: 17:00 - Subjective Subjective: Pt seen and examined, less short of breath, less cough, less wheezing, tolerating diet she feels much better, calm quite, not depressed Objective - Vital Signs/Intake and Output Vital Signs (last 24 hours): Temp Pulse Resp BP Pulse Ox 98.2 F 64 18 146/83 99 07/06/17 08:00 07/06/17 08:03 07/06/17 08:03 07/06/17 08:00 07/06/17 08:03 Intake and Output: 07/06/17 07/06/17 06:59 18:59 Intake Total 240 Output Total 250 Balance -10 - Medications Medications: Current Medications Albuterol/Ipratropium (Duoneb 3 Mg/0.5 Mg (3 Ml) Ud) 3 ml INH RQ6 [facility] Last Admin: 07/06/17 07:33 Dose: 3 ml Alprazolam (Xanax) 0.5 mg PO BID [facility] Last Admin: 07/05/17 17:09 Dose: 0.5 mg Doxycycline Hyclate (Doryx) 100 mg PO Q12H [facility] PRN Reason: Protocol Last Admin: 07/05/17 21:05 Dose: 100 mg Gabapentin (Neurontin) 800 mg PO TID [facility] Last Admin: 07/05/17 17:07 Dose: 800 mg Guaifenesin (Robitussin) 200 mg PO Q4H [facility] Last Admin: 07/06/17 05:11 Dose: 200 mg Heparin Sodium (Porcine) (Heparin) 5,000 units SC Q8 [facility] Last Admin: 07/06/17 05:11 Dose: 5,000 units Insulin Aspart (Novolog) 0 unit SC ACHS [facility] PRN Reason: Protocol Last Admin: 07/06/17 07:55 Dose: Not Given Insulin Glargine (Lantus) 30 unit SC HS [facility] Last Admin: 07/05/17 21:06 Dose: 30 u Lactobacillus Acidophilus (Bacid Acidophilus) 1 cap PO BID [facility] Last Admin: 07/05/17 17:07 Dose: 1 cap Montelukast Sodium (Singulair) 10 mg PO HS [facility] Last Admin: 07/05/17 21:08 Dose: 10 mg Oxycodone/Acetaminophen (Percocet 5/325 Mg Tab) 1 tab PO Q4H PRN PRN Reason: Pain, moderate (4-7) Stop: 07/06/17 22:54 Last Admin: 07/06/17 02:59 Dose: 1 tab Pantoprazole Sodium (Protonix Ec Tab) 20 mg PO DAILY [facility] Last Admin: 07/05/17 09:33 Dose: 20 mg Prednisone (Prednisone Tab) 40 mg PO DAILY [facility] Last Admin: 07/05/17 09:33 Dose: 40 mg Quetiapine Fumarate (Seroquel Xr) 400 mg PO Q12 [facility] Last Admin: 07/05/17 21:05 Dose: 400 mg Sertraline HCl (Zoloft) 100 mg PO HS [facility] Last Admin: 07/05/17 21:05 Dose: 100 mg Trazodone HCl (Desyrel) 150 mg PO [facility] Last Admin: 07/05/17 21:06 Dose: 150 mg - Labs Labs: 07/04/17 06:14 07/04/17 06:14 PT 11.4 SECONDS (9.7-12.2) 07/03/17 16:51 INR 1.0 07/03/17 16:51 APTT 32 SECONDS (21-34) 07/03/17 16:51 - Constitutional Appears: No Acute Distress, Chronically Ill - Head Exam Head Exam: ATRAUMATIC, NORMAL INSPECTION, NORMOCEPHALIC - Eye Exam Eye Exam: EOMI, Normal appearance, PERRL Pupil Exam: NORMAL ACCOMODATION, PERRL - Respiratory Exam Respiratory Exam: Decreased Breath Sounds, Rhonchi - Cardiovascular Exam Cardiovascular Exam: REGULAR RHYTHM, +S1, +S2. absent: Murmur - GI/Abdominal Exam GI & Abdominal Exam: Soft, Normal Bowel Sounds. absent: Tenderness - Extremities Exam Extremities Exam: Full ROM, Normal Capillary Refill, Normal Inspection. absent : Joint Swelling, Pedal Edema - Back Exam Back Exam: NORMAL INSPECTION - Neurological Exam Neurological Exam: Alert, Awake, Oriented x3 Assessment and Plan (1) COPD exacerbation Status: Acute (2) Chronic congestive heart failure Status: Acute (3) Tracheostomy dependence Status: Acute
--- NOTE | 2017-07-06 09:35 | CP.PCM.PN ---
Subjective - Date & Time of Evaluation Date of Evaluation: 07/06/17 Time of Evaluation: 18:00 - Subjective Subjective: Pt seen and examined, less short of breath, less cough, less wheezing, tolerating diet she feels much better, calm quite, not depressed Objective - Vital Signs/Intake and Output Vital Signs (last 24 hours): Temp Pulse Resp BP Pulse Ox 98.2 F 64 18 146/83 99 07/06/17 08:00 07/06/17 08:03 07/06/17 08:03 07/06/17 08:00 07/06/17 08:03 Intake and Output: 07/06/17 07/06/17 06:59 18:59 Intake Total 240 Output Total 250 Balance -10 - Medications Medications: Current Medications Albuterol/Ipratropium (Duoneb 3 Mg/0.5 Mg (3 Ml) Ud) 3 ml INH RQ6 [facility] Last Admin: 07/06/17 07:33 Dose: 3 ml Alprazolam (Xanax) 0.5 mg PO BID [facility] Last Admin: 07/05/17 17:09 Dose: 0.5 mg Doxycycline Hyclate (Doryx) 100 mg PO Q12H [facility] PRN Reason: Protocol Last Admin: 07/05/17 21:05 Dose: 100 mg Gabapentin (Neurontin) 800 mg PO TID [facility] Last Admin: 07/05/17 17:07 Dose: 800 mg Guaifenesin (Robitussin) 200 mg PO Q4H [facility] Last Admin: 07/06/17 05:11 Dose: 200 mg Heparin Sodium (Porcine) (Heparin) 5,000 units SC Q8 [facility] Last Admin: 07/06/17 05:11 Dose: 5,000 units Insulin Aspart (Novolog) 0 unit SC ACHS [facility] PRN Reason: Protocol Last Admin: 07/06/17 07:55 Dose: Not Given Insulin Glargine (Lantus) 30 unit SC HS [facility] Last Admin: 07/05/17 21:06 Dose: 30 u Lactobacillus Acidophilus (Bacid Acidophilus) 1 cap PO BID [facility] Last Admin: 07/05/17 17:07 Dose: 1 cap Montelukast Sodium (Singulair) 10 mg PO HS [facility] Last Admin: 07/05/17 21:08 Dose: 10 mg Oxycodone/Acetaminophen (Percocet 5/325 Mg Tab) 1 tab PO Q4H PRN PRN Reason: Pain, moderate (4-7) Stop: 07/06/17 22:54 Last Admin: 07/06/17 02:59 Dose: 1 tab Pantoprazole Sodium (Protonix Ec Tab) 20 mg PO DAILY [facility] Last Admin: 07/05/17 09:33 Dose: 20 mg Prednisone (Prednisone Tab) 40 mg PO DAILY [facility] Last Admin: 07/05/17 09:33 Dose: 40 mg Quetiapine Fumarate (Seroquel Xr) 400 mg PO Q12 [facility] Last Admin: 07/05/17 21:05 Dose: 400 mg Sertraline HCl (Zoloft) 100 mg PO HS [facility] Last Admin: 07/05/17 21:05 Dose: 100 mg Trazodone HCl (Desyrel) 150 mg PO [facility] Last Admin: 07/05/17 21:06 Dose: 150 mg - Labs Labs: 07/04/17 06:14 07/04/17 06:14 PT 11.4 SECONDS (9.7-12.2) 07/03/17 16:51 INR 1.0 07/03/17 16:51 APTT 32 SECONDS (21-34) 07/03/17 16:51 - Constitutional Appears: No Acute Distress, Chronically Ill - Head Exam Head Exam: ATRAUMATIC, NORMAL INSPECTION, NORMOCEPHALIC - Eye Exam Eye Exam: EOMI, Normal appearance, PERRL Pupil Exam: NORMAL ACCOMODATION, PERRL - Respiratory Exam Respiratory Exam: Decreased Breath Sounds, Rhonchi Additional comments: trach is palce - Cardiovascular Exam Cardiovascular Exam: REGULAR RHYTHM, +S1, +S2. absent: Murmur - GI/Abdominal Exam GI & Abdominal Exam: Soft, Normal Bowel Sounds. absent: Tenderness Assessment and Plan (1) COPD exacerbation Status: Acute (2) Chronic congestive heart failure Status: Acute (3) Tracheostomy dependence Assessment & Plan: frequent suctioning Status: Acute (4) Respiratory failure Status: Acute
[2017-07-06] MEDS: Lactobacillus Acidophilus 500 MU Cap PO SCH ×2 (09:36→17:12)
[2017-07-06] MEDS: QUEtiapine 200 mg XR Tab PO SCH ×2 (09:36→21:08)
[2017-07-06] MEDS: Pantoprazole 20 mg EC Tab PO SCH (09:36)
[2017-07-06] MEDS: (Lantus) Insulin Glargine, Recombinant SC SCH (21:06)
[2017-07-07] MEDS: guaiFENesin 200 mg/10 ml Syrup UD PO SCH ×4 (01:04→21:12)
[2017-07-07] MEDS: Albuterol-Ipratrop 3 mg / 0.5 (3 ml) UD INH SCH ×4 (01:08→19:15)
[2017-07-07] MEDS: (Novolog) Insulin Aspart, Recombinant 100 u/ml 10 ml vial SC SCH ×4 (08:20→22:29)
[2017-07-07] MEDS: Pantoprazole 20 mg EC Tab PO SCH (09:09)
[2017-07-07] MEDS: Lactobacillus Acidophilus 500 MU Cap PO SCH ×2 (09:10→17:41)
[2017-07-07] MEDS: QUEtiapine 200 mg XR Tab PO SCH ×2 (09:10→21:14)
[2017-07-07] MEDS: Oxycodone/Acetaminophen 5/325 mg Tab PO PRN ×3 (09:19→20:50)
--- NOTE | 2017-07-07 10:37 | CP.PCM.PN ---
Subjective - Date & Time of Evaluation Date of Evaluation: 07/07/17 Time of Evaluation: 08:40 - Subjective Subjective: patient seen and examined Sitting comfortably in no distress Still has cough with thick mucus Afebrile Objective - Vital Signs/Intake and Output Vital Signs (last 24 hours): Temp Pulse Resp BP Pulse Ox 98.5 F 64 17 151/81 H 100 07/07/17 03:58 07/07/17 04:00 07/07/17 04:00 07/07/17 03:49 07/07/17 04:00 Intake and Output: 07/07/17 07/07/17 06:59 18:59 Intake Total 240 Output Total 1000 Balance -760 - Medications Medications: Current Medications Albuterol/Ipratropium (Duoneb 3 Mg/0.5 Mg (3 Ml) Ud) 3 ml INH RQ6 [facility] Last Admin: 07/07/17 08:05 Dose: 3 ml Alprazolam (Xanax) 0.5 mg PO BID [facility] Last Admin: 07/07/17 09:09 Dose: 0.5 mg Doxycycline Hyclate (Doryx) 100 mg PO Q12H [facility] PRN Reason: Protocol Last Admin: 07/07/17 09:21 Dose: 100 mg Gabapentin (Neurontin) 800 mg PO TID [facility] Last Admin: 07/07/17 09:09 Dose: 800 mg Guaifenesin (Robitussin) 200 mg PO Q4H [facility] Last Admin: 07/07/17 05:57 Dose: 200 mg Heparin Sodium (Porcine) (Heparin) 5,000 units SC Q12 [facility] Last Admin: 07/07/17 09:20 Dose: 5,000 units Insulin Aspart (Novolog) 0 unit SC ACHS [facility] PRN Reason: Protocol Last Admin: 07/07/17 08:20 Dose: 1 unit Insulin Glargine (Lantus) 30 unit SC HS [facility] Last Admin: 07/06/17 21:06 Dose: 30 u Lactobacillus Acidophilus (Bacid Acidophilus) 1 cap PO BID [facility] Last Admin: 07/07/17 09:10 Dose: 1 cap Montelukast Sodium (Singulair) 10 mg PO HS [facility] Last Admin: 07/06/17 22:21 Dose: 10 mg Oxycodone/Acetaminophen (Percocet 5/325 Mg Tab) 1 tab PO Q4H PRN PRN Reason: Pain, moderate (4-7) Stop: 07/10/17 09:04 Last Admin: 07/07/17 09:19 Dose: 1 tab Pantoprazole Sodium (Protonix Ec Tab) 20 mg PO DAILY [facility] Last Admin: 07/07/17 09:09 Dose: 20 mg Prednisone (Prednisone Tab) 40 mg PO DAILY [facility] Last Admin: 07/07/17 09:09 Dose: 40 mg Quetiapine Fumarate (Seroquel Xr) 400 mg PO Q12 [facility] Last Admin: 07/07/17 09:10 Dose: 400 mg Sertraline HCl (Zoloft) 100 mg PO HS [facility] Last Admin: 07/06/17 21:08 Dose: 100 mg Trazodone HCl (Desyrel) 150 mg PO [facility] Last Admin: 07/06/17 21:07 Dose: 150 mg - Labs Labs: 07/04/17 06:14 07/04/17 06:14 PT 11.4 SECONDS (9.7-12.2) 07/03/17 16:51 INR 1.0 07/03/17 16:51 APTT 32 SECONDS (21-34) 07/03/17 16:51 - Head Exam Head Exam: ATRAUMATIC, NORMOCEPHALIC - Eye Exam Eye Exam: Normal appearance - ENT Exam ENT Exam: Mucous Membranes Moist - Respiratory Exam Respiratory Exam: Rhonchi, Wheezes - Cardiovascular Exam Cardiovascular Exam: REGULAR RHYTHM - GI/Abdominal Exam GI & Abdominal Exam: Soft, Normal Bowel Sounds Assessment and Plan (1) Tracheobronchitis Assessment & Plan: continue nebulizer treatment and prednisone Suction as needed No trach weaning Status: Acute (2) Mucus plugging of bronchi Status: Acute
[2017-07-07] MEDS: (Lantus) Insulin Glargine, Recombinant SC SCH (21:13)
--- NOTE | 2017-07-07 23:25 | CP.PCM.PN ---
Subjective - Date & Time of Evaluation Date of Evaluation: 07/07/17 Time of Evaluation: 18:00 - Subjective Subjective: Pt seen and examined at bedside Objective - Vital Signs/Intake and Output Vital Signs (last 24 hours): Temp Pulse Resp BP Pulse Ox 98.4 F 74 16 134/79 98 07/07/17 16:00 07/07/17 16:00 07/07/17 16:00 07/07/17 16:00 07/07/17 16:00 Intake and Output: 07/07/17 07/08/17 18:59 06:59 Intake Total 600 Balance 600 - Medications Medications: Current Medications Albuterol/Ipratropium (Duoneb 3 Mg/0.5 Mg (3 Ml) Ud) 3 ml INH RQ6 [facility] Last Admin: 07/07/17 19:15 Dose: 3 ml Alprazolam (Xanax) 0.5 mg PO BID [facility] Last Admin: 07/07/17 17:41 Dose: 0.5 mg Doxycycline Hyclate (Doryx) 100 mg PO Q12H [facility] PRN Reason: Protocol Last Admin: 07/07/17 21:13 Dose: 100 mg Gabapentin (Neurontin) 800 mg PO TID [facility] Last Admin: 07/07/17 17:41 Dose: 800 mg Guaifenesin (Robitussin) 200 mg PO Q4H [facility] Last Admin: 07/07/17 21:12 Dose: 200 mg Heparin Sodium (Porcine) (Heparin) 5,000 units SC Q12 [facility] Last Admin: 07/07/17 21:12 Dose: 5,000 units Insulin Aspart (Novolog) 0 unit SC ACHS [facility] PRN Reason: Protocol Last Admin: 07/07/17 22:29 Dose: Not Given Insulin Glargine (Lantus) 30 unit SC HS [facility] Last Admin: 07/07/17 21:13 Dose: 30 u Lactobacillus Acidophilus (Bacid Acidophilus) 1 cap PO BID [facility] Last Admin: 07/07/17 17:41 Dose: 1 cap Montelukast Sodium (Singulair) 10 mg PO HS [facility] Last Admin: 07/07/17 21:14 Dose: 10 mg Oxycodone/Acetaminophen (Percocet 5/325 Mg Tab) 1 tab PO Q4H PRN PRN Reason: Pain, moderate (4-7) Stop: 07/10/17 09:04 Last Admin: 07/07/17 20:50 Dose: 1 tab Pantoprazole Sodium (Protonix Ec Tab) 20 mg PO DAILY [facility] Last Admin: 07/07/17 09:09 Dose: 20 mg Prednisone (Prednisone Tab) 40 mg PO DAILY [facility] Last Admin: 07/07/17 09:09 Dose: 40 mg Quetiapine Fumarate (Seroquel Xr) 400 mg PO Q12 [facility] Last Admin: 07/07/17 21:14 Dose: 400 mg Sertraline HCl (Zoloft) 100 mg PO HS [facility] Last Admin: 07/07/17 21:14 Dose: 100 mg Trazodone HCl (Desyrel) 150 mg PO HS [facility] Last Admin: 07/07/17 21:13 Dose: 150 mg - Labs Labs: 07/04/17 06:14 07/04/17 06:14 PT 11.4 SECONDS (9.7-12.2) 07/03/17 16:51 INR 1.0 07/03/17 16:51 APTT 32 SECONDS (21-34) 07/03/17 16:51 Assessment and Plan (1) COPD exacerbation Status: Acute (2) Chronic congestive heart failure Status: Acute (3) Tracheostomy dependence Status: Acute
[2017-07-08] MEDS: guaiFENesin 200 mg/10 ml Syrup UD PO SCH ×6 (00:48→21:28)
[2017-07-08 01:13] VITALS: RESP 20
[2017-07-08] MEDS: Albuterol-Ipratrop 3 mg / 0.5 (3 ml) UD INH SCH ×4 (01:57→19:53)
[2017-07-08] MEDS: (Novolog) Insulin Aspart, Recombinant 100 u/ml 10 ml vial SC SCH ×4 (07:52→21:43)
[2017-07-08] MEDS: Lactobacillus Acidophilus 500 MU Cap PO SCH ×2 (09:51→17:32)
[2017-07-08] MEDS: QUEtiapine 200 mg XR Tab PO SCH ×2 (09:51→21:39)
[2017-07-08] MEDS: Pantoprazole 20 mg EC Tab PO SCH (09:52)
[2017-07-08] MEDS: Oxycodone/Acetaminophen 5/325 mg Tab PO PRN ×2 (11:43→17:44)
[2017-07-08] MEDS: (Lantus) Insulin Glargine, Recombinant SC SCH (21:44)
--- NOTE | 2017-07-08 23:27 | CP.PCM.PN ---
Subjective - Date & Time of Evaluation Date of Evaluation: 07/08/17 Time of Evaluation: 17:00 - Subjective Subjective: Pt sen and evaluated, no chest pain, sob, nausea, vomiting, denies any fever, chills Objective - Vital Signs/Intake and Output Vital Signs (last 24 hours): Temp Pulse Resp BP Pulse Ox 98 F 64 20 124/62 96 07/08/17 16:00 07/08/17 16:00 07/08/17 16:00 07/08/17 16:00 07/08/17 16:00 Intake and Output: 07/08/17 07/09/17 18:59 06:59 Intake Total 480 250 Balance 480 250 - Medications Medications: Current Medications Albuterol/Ipratropium (Duoneb 3 Mg/0.5 Mg (3 Ml) Ud) 3 ml INH RQ6 [facility] Last Admin: 07/08/17 19:53 Dose: 3 ml Alprazolam (Xanax) 0.5 mg PO BID [facility] Last Admin: 07/08/17 17:32 Dose: 0.5 mg Gabapentin (Neurontin) 800 mg PO TID [facility] Last Admin: 07/08/17 17:44 Dose: 800 mg Guaifenesin (Robitussin) 200 mg PO Q4H [facility] Last Admin: 07/08/17 21:28 Dose: 200 mg Heparin Sodium (Porcine) (Heparin) 5,000 units SC Q12 [facility] Last Admin: 07/08/17 21:34 Dose: 5,000 units Insulin Aspart (Novolog) 0 unit SC ACHS [facility] PRN Reason: Protocol Last Admin: 07/08/17 21:43 Dose: 2 unit Insulin Glargine (Lantus) 30 unit SC [facility] Last Admin: 07/08/17 21:44 Dose: 30 u Lactobacillus Acidophilus (Bacid Acidophilus) 1 cap PO BID [facility] Last Admin: 07/08/17 17:32 Dose: 1 cap Montelukast Sodium (Singulair) 10 mg PO [facility] Last Admin: 07/08/17 21:37 Dose: 10 mg Oxycodone/Acetaminophen (Percocet 5/325 Mg Tab) 1 tab PO Q4H PRN PRN Reason: Pain, moderate (4-7) Stop: 07/10/17 09:04 Last Admin: 07/08/17 17:44 Dose: 1 tab Pantoprazole Sodium (Protonix Ec Tab) 20 mg PO DAILY [facility] Last Admin: 07/08/17 09:52 Dose: 20 mg Prednisone (Prednisone Tab) 40 mg PO DAILY [facility] Last Admin: 07/08/17 09:51 Dose: 40 mg Quetiapine Fumarate (Seroquel Xr) 400 mg PO Q12 [facility] Last Admin: 07/08/17 21:39 Dose: 400 mg Sertraline HCl (Zoloft) 100 mg PO HS [facility] Last Admin: 07/08/17 21:30 Dose: 100 mg Trazodone HCl (Desyrel) 150 mg PO HS [facility] Last Admin: 07/08/17 21:35 Dose: 150 mg - Labs Labs: 07/04/17 06:14 07/04/17 06:14 PT 11.4 SECONDS (9.7-12.2) 07/03/17 16:51 INR 1.0 07/03/17 16:51 APTT 32 SECONDS (21-34) 07/03/17 16:51 Assessment and Plan (1) COPD exacerbation Status: Acute (2) Chronic congestive heart failure Status: Acute (3) Tracheostomy dependence Status: Acute
[2017-07-09] MEDS: guaiFENesin 200 mg/10 ml Syrup UD PO SCH ×4 (02:18→14:35)
[2017-07-09] MEDS: Albuterol-Ipratrop 3 mg / 0.5 (3 ml) UD INH SCH (02:38)
[2017-07-09] MEDS: (Novolog) Insulin Aspart, Recombinant 100 u/ml 10 ml vial SC SCH ×2 (08:08→12:04)
[2017-07-09] MEDS: Oxycodone/Acetaminophen 5/325 mg Tab PO PRN (08:13)
[2017-07-09] MEDS: QUEtiapine 200 mg XR Tab PO SCH (10:00)
[2017-07-09] MEDS: Lactobacillus Acidophilus 500 MU Cap PO SCH (10:00)
[2017-07-09] MEDS: Pantoprazole 20 mg EC Tab PO SCH (10:01)
[2017-07-09 11:23] LABS: BASO % 0.3 % (0.0-2.0); EOS # 0.1 K/uL (0.0-0.7); EOS % 0.8 % (0.0-4.0); HEMOGLOBIN 12.7 g/dL (11.0-16.0); LYMPH % 26.3 % (20.0-40.0); MEAN CELL VOLUME 82.1 fL (81.0-99.0); MEAN CORPUSCULAR HEMOGLOBIN 27.7 pg (27.0-31.0); MEAN CORPUSCULAR HGB CONC 33.8 g/dL (33.0-37.0); MEAN PLATELET VOLUME 8.6 fL (7.2-11.7); MONO # 0.7 K/uL (0.0-0.8); MONO % 6.2 % (0.0-10.0); NEUT # 7.6 K/uL (1.8-7.0); NEUT % 66.4 % (50.0-75.0); RBC 4.56 Mil/uL (3.80-5.20); RED CELL DISTRIBUTION WIDTH 15.4 % (11.5-14.5); WHITE BLOOD COUNT 11.4 K/uL (4.8-10.8)
[2017-07-09 11:54] LABS: BLOOD UREA NITROGEN 29 mg/dL (7-17); CALCIUM 9.8 mg/dl (8.6-10.4); GFR AFRICAN-AMERICAN > 60; GFR NON-AFRICAN AMERICAN 57
--- NOTE | 2017-07-09 15:25 | CP.PCM.PN ---
Subjective - Date & Time of Evaluation Date of Evaluation: 07/09/17 Time of Evaluation: 09:00 - Subjective Subjective: patient seen and examined Breathing better Still a slight cough Afebrile Objective - Vital Signs/Intake and Output Vital Signs (last 24 hours): Temp Pulse Resp BP Pulse Ox 98.4 F 82 20 137/86 96 07/09/17 07:37 07/09/17 11:15 07/09/17 07:37 07/09/17 07:37 07/09/17 11:15 Intake and Output: 07/09/17 07/09/17 06:59 18:59 Intake Total 490 Balance 490 - Medications Medications: Current Medications Alprazolam (Xanax) 0.5 mg PO BID [facility] Last Admin: 07/09/17 10:03 Dose: 0.5 mg Gabapentin (Neurontin) 800 mg PO TID [facility] Last Admin: 07/09/17 14:30 Dose: 800 mg Guaifenesin (Robitussin) 200 mg PO Q4H [facility] Last Admin: 07/09/17 14:35 Dose: 200 mg Heparin Sodium (Porcine) (Heparin) 5,000 units SC Q12 [facility] Last Admin: 07/09/17 09:59 Dose: 5,000 units Insulin Aspart (Novolog) 0 unit SC [facility] PRN Reason: Protocol Last Admin: 07/09/17 12:04 Dose: 1 unit Insulin Glargine (Lantus) 30 unit SC [facility] Last Admin: 07/08/17 21:44 Dose: 30 u Lactobacillus Acidophilus (Bacid Acidophilus) 1 cap PO BID [facility] Last Admin: 07/09/17 10:00 Dose: 1 cap Montelukast Sodium (Singulair) 10 mg PO [facility] Last Admin: 07/08/17 21:37 Dose: 10 mg Oxycodone/Acetaminophen (Percocet 5/325 Mg Tab) 1 tab PO Q4H PRN PRN Reason: Pain, moderate (4-7) Stop: 07/10/17 09:04 Last Admin: 07/09/17 08:13 Dose: 1 tab Pantoprazole Sodium (Protonix Ec Tab) 20 mg PO DAILY [facility] Last Admin: 07/09/17 10:01 Dose: 20 mg Prednisone (Prednisone Tab) 40 mg PO DAILY [facility] Last Admin: 07/09/17 09:59 Dose: 40 mg Quetiapine Fumarate (Seroquel Xr) 400 mg PO Q12 [facility] Last Admin: 07/09/17 10:00 Dose: 400 mg Sertraline HCl (Zoloft) 100 mg PO HS [facility] Last Admin: 07/08/17 21:30 Dose: 100 mg Trazodone HCl (Desyrel) 150 mg PO HS [facility] Last Admin: 07/08/17 21:35 Dose: 150 mg - Labs Labs: 07/09/17 11:08 07/09/17 11:08 PT 11.4 SECONDS (9.7-12.2) 07/03/17 16:51 INR 1.0 07/03/17 16:51 APTT 32 SECONDS (21-34) 07/03/17 16:51 - Head Exam Head Exam: ATRAUMATIC, NORMOCEPHALIC - Eye Exam Eye Exam: Normal appearance - ENT Exam ENT Exam: Mucous Membranes Moist - Respiratory Exam Respiratory Exam: Clear to Ausculation Bilateral - Cardiovascular Exam Cardiovascular Exam: REGULAR RHYTHM Assessment and Plan (1) Tracheobronchitis Assessment & Plan: Continue nebulizer treatment Tapering dose of prednisone Stable from pulmonary standpoint Status: Acute (2) Mucus plugging of bronchi Status: Acute
[2017-07-09] MEDS ORDERED: (Novolog) Insulin Aspart, Recombinant 100 u/ml 10 ml vial SC SCH (16:46)
[2017-07-09 17:01] VITALS: BP 116/69; PULSE 78; TEMP 98.3; O2SAT 98
--- NOTE | 2017-07-09 17:03 | CP.PCM.PN ---
Subjective - Date & Time of Evaluation Date of Evaluation: 07/09/17 Time of Evaluation: 17:03 - Subjective Subjective: Alert, awake, no sob or breathing trouble. Objective - Vital Signs/Intake and Output Vital Signs (last 24 hours): Temp Pulse Resp BP Pulse Ox 98.4 F 82 20 137/86 96 07/09/17 07:37 07/09/17 11:15 07/09/17 07:37 07/09/17 07:37 07/09/17 11:15 Intake and Output: 07/09/17 07/09/17 06:59 18:59 Intake Total 490 500 Balance 490 500 - Medications Medications: Current Medications Albuterol/Ipratropium (Duoneb 3 Mg/0.5 Mg (3 Ml) Ud) 3 ml INH RQ6 [facility] Alprazolam (Xanax) 0.5 mg PO BID [facility] Last Admin: 07/09/17 10:03 Dose: 0.5 mg Gabapentin (Neurontin) 800 mg PO TID [facility] Last Admin: 07/09/17 14:30 Dose: 800 mg Guaifenesin (Robitussin) 200 mg PO Q4H [facility] Last Admin: 07/09/17 14:35 Dose: 200 mg Heparin Sodium (Porcine) (Heparin) 5,000 units SC Q12 [facility] Last Admin: 07/09/17 09:59 Dose: 5,000 units Insulin Aspart (Novolog) 0 unit SC ACHS [facility] PRN Reason: Protocol Insulin Glargine (Lantus) 30 unit SC HS [facility] Last Admin: 07/08/17 21:44 Dose: 30 u Lactobacillus Acidophilus (Bacid Acidophilus) 1 cap PO BID [facility] Last Admin: 07/09/17 10:00 Dose: 1 cap Montelukast Sodium (Singulair) 10 mg PO HS [facility] Last Admin: 07/08/17 21:37 Dose: 10 mg Oxycodone/Acetaminophen (Percocet 5/325 Mg Tab) 1 tab PO Q4H PRN PRN Reason: Pain, moderate (4-7) Stop: 07/10/17 09:04 Last Admin: 07/09/17 08:13 Dose: 1 tab Pantoprazole Sodium (Protonix Ec Tab) 20 mg PO DAILY [facility] Last Admin: 07/09/17 10:01 Dose: 20 mg Prednisone (Prednisone Tab) 40 mg PO DAILY [facility] Last Admin: 07/09/17 09:59 Dose: 40 mg Quetiapine Fumarate (Seroquel Xr) 400 mg PO Q12 [facility] Last Admin: 07/09/17 10:00 Dose: 400 mg Sertraline HCl (Zoloft) 100 mg PO HS [facility] Last Admin: 07/08/17 21:30 Dose: 100 mg Trazodone HCl (Desyrel) 150 mg PO HS [facility] Last Admin: 07/08/17 21:35 Dose: 150 mg - Labs Labs: 07/09/17 11:08 07/09/17 11:08 PT 11.4 SECONDS (9.7-12.2) 07/03/17 16:51 INR 1.0 07/03/17 16:51 APTT 32 SECONDS (21-34) 07/03/17 16:51 Assessment and Plan - Assessment and Plan (Free Text) Assessment: Patient is seen and examined. Admitted with trach malfunction, COPD. Alert and orientedx3, denies sob or chest pains. Patient has oxygen and nebulizer set uo at home. Cleared by DR Rosado, discussed with DR Khan, plan to discharge home today on tapering prednisone and oral antibiotics. Advised to follow up with PMD in 1 week. Tracheostomy site intact. Home care and home physical therapy arranged.
--- NOTE | 2017-07-09 17:09 | PCM.HF ---
Heart Failure Core Measure - Heart Failure Ejection Fraction: 40 % or Greater (EF 68%) Left Ventricular Function to be assessed after discharge: No SHAWNA Inhibitor Prescribed: No Contraindication/Reason for not providing: low BP Beta-Facundo Prescribed: None Contraindication/Reason for not providing: COPD Angiotensin II Receptor Facundo Prescribed: No Contraindication/Reason for not providing: BP at the low side AnticoagulationTherapy for Atrial Fibrillation/Atrialflutter: No Contraindication/Reason for not providing: no afib Aldosterone Antagonist Prescribed: No Contraindication/Reason for not providing: ef >40% Hydralazine Nitrate Prescribed: No Contraindication/Reason for not providing: EF >40% Implantable Cardioverter Defibrillator Therapy: No Contraindication/Reason for not providing: EF >40% Cardiac Resynchronization Therapy Prescribed: No Contraindication/Reason for not providing: not indicated - Follow up Follow Up Date (must be within 7 days from discharge): 07/16/17 Follow Up Time: 09:00
[2017-07-09] MEDS ORDERED: Albuterol-Ipratrop 3 mg / 0.5 (3 ml) UD INH SCH (20:00)
--- NOTE | 2017-07-09 23:12 | CP.PCM.DIS ---
Provider - Provider Date of Admission: 07/03/17 17:54 Attending physician: Ad Khan MD Time Spent in preparation of Discharge (in minutes): 45 Diagnosis - Discharge Diagnosis (1) COPD exacerbation Status: Acute (2) Chronic congestive heart failure Status: Acute (3) Tracheostomy dependence Status: Acute Hospital Course - Lab Results Lab Results: Micro Results 07/03/17 22:22 Blood Blood Culture - Final NO GROWTH AFTER 5 DAYS 07/03/17 22:22 Blood Gram Stain - Final TEST NOT PERFORMED 07/03/17 22:22 Blood Blood Culture - Final NO GROWTH AFTER 5 DAYS 07/03/17 22:22 Blood Gram Stain - Final TEST NOT PERFORMED 07/07/17 17:58 Naris MRSA Culture - Final MRSA NOT DETECTED 07/03/17 19:17 Urine,Catheterized Urine Culture - Final No Growth (<1,000 CFU/ML) 07/03/17 20:26 Naris MRSA Culture (Admit) - Final MRSA NOT DETECTED Most Recent Lab Values WBC 11.4 K/uL (4.8-10.8) H 07/09/17 11:08 RBC 4.56 Mil/uL (3.80-5.20) 07/09/17 11:08 Hgb 12.7 g/dL (11.0-16.0) 07/09/17 11:08 Hct 37.4 % (34.0-47.0) 07/09/17 11:08 MCV 82.1 fL (81.0-99.0) 07/09/17 11:08 MCH 27.7 pg (27.0-31.0) 07/09/17 11:08 MCHC 33.8 g/dL (33.0-37.0) 07/09/17 11:08 RDW 15.4 % (11.5-14.5) H 07/09/17 11:08 Plt Count 157 K/uL (130-400) 07/09/17 11:08 MPV 8.6 fL (7.2-11.7) 07/09/17 11:08 Neut % (Auto) 66.4 % (50.0-75.0) 07/09/17 11:08 Lymph % (Auto) 26.3 % (20.0-40.0) 07/09/17 11:08 [place] % (Auto) 6.2 % (0.0-10.0) 07/09/17 11:08 Eos % (Auto) 0.8 % (0.0-4.0) 07/09/17 11:08 Baso % (Auto) 0.3 % (0.0-2.0) 07/09/17 11:08 Neut # (Auto) 7.6 K/uL (1.8-7.0) H 07/09/17 11:08 Lymph # (Auto) 3.0 K/uL (1.0-4.3) 07/09/17 11:08 [place] # (Auto) 0.7 K/uL (0.0-0.8) 07/09/17 11:08 Eos # (Auto) 0.1 K/uL (0.0-0.7) 07/09/17 11:08 Baso # (Auto) 0.0 K/uL (0.0-0.2) 07/09/17 11:08 Neutrophils % (Manual) 92 % (50-75) H 07/04/17 06:14 Lymphocytes % (Manual) 7 % (20-40) L 07/04/17 06:14 Monocytes % (Manual) 1 % (0-10) 07/04/17 06:14 Platelet Estimate Normal (NORMAL) 07/04/17 06:14 Hypochromasia (manual) Slight 07/04/17 06:14 Poikilocytosis (manual Slight 07/04/17 06:14 Anisocytosis (manual) Slight 07/04/17 06:14 PT 11.4 SECONDS (9.7-12.2) 07/03/17 16:51 INR 1.0 07/03/17 16:51 APTT 32 SECONDS (21-34) 07/03/17 16:51 Sodium 143 mmol/L (132-148) 07/09/17 11:08 Potassium 4.1 mmol/L (3.6-5.2) 07/09/17 11:08 Chloride 100 mmol/L (98-107) 07/09/17 11:08 Carbon Dioxide 33 mmol/L (22-30) H 07/09/17 11:08 Anion Gap 14 (10-20) 07/09/17 11:08 BUN 29 mg/dL (7-17) H 07/09/17 11:08 Creatinine 1.0 mg/dL (0.7-1.2) 07/09/17 11:08 Est GFR ( Amer) > 60 07/09/17 11:08 Est GFR (Non-Af Amer) 57 07/09/17 11:08 POC Glucose (mg/dL) 408 mg/dL (65-110) H* 07/09/17 16:27 Random Glucose 195 mg/dL (65-105) H 07/09/17 11:08 Calcium 9.8 mg/dl (8.6-10.4) 07/09/17 11:08 Phosphorus 3.4 mg/dL (2.5-4.5) 07/04/17 06:14 Magnesium 1.8 mg/dL (1.6-2.3) 07/04/17 06:14 Total Bilirubin 1.0 mg/dL (0.2-1.3) 07/04/17 06:14 AST 21 U/L (14-36) 07/04/17 06:14 ALT 21 U/L (9-52) 07/04/17 06:14 Alkaline Phosphatase 130 U/L (38-126) H 07/04/17 06:14 NT-Pro-B Natriuret Pep 132 pg/mL (0-900) 07/03/17 16:51 Total Protein 7.0 g/dL (6.3-8.3) 07/04/17 06:14 Albumin 3.4 g/dL (3.5-5.0) L 07/04/17 06:14 Globulin 3.6 gm/dL (2.2-3.9) 07/04/17 06:14 Albumin/Globulin Ratio 0.9 (1.0-2.1) L 07/04/17 06:14 Urine Color Yellow (YELLOW) 07/03/17 19:17 Urine Clarity Clear (Clear) 07/03/17 19:17 Urine pH 5.0 (5.0-8.0) 07/03/17 19:17 Ur Specific [place] 1.016 (1.003-1.030) 07/03/17 19:17 Urine Protein Negative mg/dL (NEGATIVE) 07/03/17 19:17 Urine Glucose (UA) 2+ mg/dL (Normal) H 07/03/17 19:17 Urine Ketones Negative mg/dL (NEGATIVE) 07/03/17 19:17 Urine Blood Negative (NEGATIVE) 07/03/17 19:17 Urine Nitrate Negative (NEGATIVE) 07/03/17 19:17 Urine Bilirubin Negative (NEGATIVE) 07/03/17 19:17 Urine Urobilinogen Normal mg/dL (0.2-1.0) 07/03/17 19:17 Ur Leukocyte Esterase Neg Brian/uL (Negative) 07/03/17 19:17 Urine WBC (Auto) < 1 /hpf (0-5) 07/03/17 19:17 - Hospital Course Hospital Course: Patient seen and examined, is stable for discharge Discharge Exam - Head Exam Head Exam: ATRAUMATIC, NORMOCEPHALIC Discharge Plan - Discharge Medications Prescriptions: Doxycycline Hyclate [Doryx] 100 mg PO Q12H 7 Days cap predniSONE [Prednisone] 10 mg PO DAILY #19 tab - Follow Up Plan Condition: FAIR Disposition: HOME/ ROUTINE Instructions: COPD Including Emphysema (DC), Heart Failure, Adult (DC) Referrals: Ad Khan MD [Staff Provider] -
== END 2017-07-09 18:24 | disposition home or self-care (01) | DRG 541 ==
LOC: C.ER 15:44 → C.9E 17:54 → C.9I 18:44 → C.3T 07-07 17:13
PROVIDERS: ADMIT Internal Medicine; ATTEND Internal Medicine
PROC: 0B21XFZ Change Tracheostomy Device in Trachea, External Approach (ICD-10-PCS; principal; 2017-07-03)
DX: J95.03 Malfunction of tracheostomy stoma (principal); J44.1 Chronic obstructive pulmonary disease with (acute) exacerbation; J96.11 Chronic respiratory failure with hypoxia; I11.0 Hypertensive heart disease with heart failure; I50.9 Heart failure, unspecified; E11.9 Type 2 diabetes mellitus without complications; E78.5 Hyperlipidemia, unspecified; F31.9 Bipolar disorder, unspecified; G47.30 Sleep apnea, unspecified; E66.01 Morbid (severe) obesity due to excess calories; Z79.4 Long term (current) use of insulin; Z87.01 Personal history of pneumonia (recurrent); Z90.49 Acquired absence of other specified parts of digestive tract; Z88.4 Allergy status to anesthetic agent; Z88.8 Allergy status to other drugs, medicaments and biological substances; Z91.018 Allergy to other foods; J98.09 Other diseases of bronchus, not elsewhere classified; Z93.0 Tracheostomy status

== ENCOUNTER 2017-07-19 17:03 | Inpatient (IN) | payer OTHER ==
[2017-07-19 17:03] VITALS: BMI 45.6
[2017-07-19] MEDS ORDERED: MethylPREDNISolone 40 mg Vial IVP STA (17:12)
[2017-07-19] MEDS ORDERED: Albuterol-Ipratrop 3 mg / 0.5 (3 ml) UD INH STA ×3 (17:12→17:13)
[2017-07-19 17:18] LABS: BASO # 0.1 K/uL (0.0-0.2); BASO % 0.3 % (0.0-2.0); EOS # 0.1 K/uL (0.0-0.7); EOS % 0.8 % (0.0-4.0); HEMOGLOBIN 12.6 g/dL (11.0-16.0); LYMPH # 2.7 K/uL (1.0-4.3); LYMPH % 16.7 % (20.0-40.0); MEAN CELL VOLUME 82.2 fL (81.0-99.0); MEAN CORPUSCULAR HEMOGLOBIN 27.1 pg (27.0-31.0); MEAN CORPUSCULAR HGB CONC 32.9 g/dL (33.0-37.0); MEAN PLATELET VOLUME 7.9 fL (7.2-11.7); MONO # 1.1 K/uL (0.0-0.8); MONO % 6.9 % (0.0-10.0); NEUT % 75.3 % (50.0-75.0); NRBC % 0.1 % (0.0-2.0); RBC 4.65 Mil/uL (3.80-5.20); RED CELL DISTRIBUTION WIDTH 15.5 % (11.5-14.5); WHITE BLOOD COUNT 15.9 K/uL (4.8-10.8)
[2017-07-19] MEDS ORDERED: Acetaminophen 650mg/20.3ml solution UD PO STA (17:19)
[2017-07-19] MEDS ORDERED: Albuterol-Ipratrop 3 mg / 0.5 (3 ml) UD ONE ×2 (17:22→19:41)
[2017-07-19] MEDS ORDERED: Sodium Chloride 0.9% 500 ML IV ONE ×2 (17:23→17:29)
--- NOTE | 2017-07-19 17:23 | C.PDOC ---
History Of Present Illness 61 yo female with a PMHx of COPD, CHF, obesity, s/p tracheostomy, brought in by ambulance for SOB. Patient had her trach suctioned en route to the ED. No fevers or chills. Patient denies any chest pain or palpitations. On arrival, Respiratory was able to suction her tracheostomy with significant mucus dislodged. Patient is febrile on arrival. Time Seen by Provider: 07/19/17 17:07 Chief Complaint (Nursing): Shortness Of Breath History Per: Patient History/Exam Limitations: no limitations Onset/Duration Of Symptoms: Hrs Current Symptoms Are (Timing): Still Present Past Medical History Reviewed: Historical Data, Nursing Documentation, Vital Signs Vital Signs: Last Vital Signs Temp 97.8 F 07/20/17 15:00 Pulse 100 H 07/20/17 15:00 Resp 20 07/20/17 15:00 BP 109/74 07/20/17 15:00 Pulse Ox 98 07/20/17 17:00 - Medical History PMH: Anxiety, Asthma, Bipolar Disorder, Bronchitis, CHF, COPD, Depression, Emphysema, HTN, Pneumonia, Seizures, Sleep Apnea Denies: Arthritis, HIV, Hypercholesterolemia, Hypothyroidism, Chronic Kidney Disease, Rheumatoid Arthritis, Sexually Transmitted Disease Surgical History: Appendectomy, Cholecystectomy - [facility] Procedures ASSISTANCE WITH RESPIRATORY VENTILATION, <24 HRS, CPAP (03/14/16) CENTRAL VENOUS CATHETER PLACEMENT WITH GUIDANCE (10/24/14) CHANGE TRACHEOSTOMY DEVICE IN TRACHEA, EXTERNAL APPROACH (07/03/17) CONTINUOUS INVASIVE MECHANICAL VENTILATION <96 CONSEC HRS (03/07/14) ENTERAL INFUSION OF CONCENTRATED NUT. SUBSTANCES (09/17/12) INSERT ENDOTRACHEAL TUBE (09/17/12) INSERTION OF ENDOTRACHEAL AIRWAY INTO TRACHEA, VIA OPENING (06/12/17) INSERTION OF INFUSION DEV INTO SUP VENA CAVA, PERC APPROACH (04/27/17) INTRODUCE OF OTH THERAP SUBST INTO RESP TRACT, VIA OPENING (05/03/15) INTRODUCTION OF NUTRITIONAL INTO UP GI, VIA OPENING (06/12/17) NEBULIZER THERAPY (09/17/12) REMOVAL OF TRACHEOSTOMY DEVICE FROM TRACHEA, FUEL VERIFICATION TECHNICIAN APPROACH (06/12/17) RESPIRATORY VENTILATION, 24-96 CONSECUTIVE HOURS (06/12/17) RESPIRATORY VENTILATION, GREATER THAN 96 CONSECUTIVE HOURS (02/27/17) Family History: States: Unknown Family Hx - Social History Hx Tobacco Use: No Hx Alcohol Use: No Hx Substance Use: No - Immunization History Hx Tetanus Toxoid Vaccination: No Hx Influenza Vaccination: No Hx Pneumococcal Vaccination: No Review Of Systems Except As Marked, All Systems Reviewed And Found Negative. Constitutional: Negative for: Fever, Chills Cardiovascular: Negative for: Chest Pain, Palpitations Respiratory: Positive for: Shortness of Breath, Other (clogged tracheostomy) Physical Exam - Physical Exam Appears: Non-toxic, No Acute Distress Skin: Normal Color, Warm, Dry Head: Atraumatic, Normacephalic Eye(s): bilateral: Normal Inspection, PERRL, EOMI Nose: Normal Oral Mucosa: Moist Chest: Symmetrical Cardiovascular: Rhythm Regular, No Murmur Respiratory: Other (Coarse breath sounds bilaterally) Gastrointestinal/Abdominal: Soft, No Tenderness, No Distention Back: Normal Inspection, No CVA Tenderness, No Vertebral Tenderness Extremity: Bilateral: Atraumatic, Normal Color And Temperature, Normal ROM Pulses: Left Dorsalis Pedis: Normal, Right Dorsalis Pedis: Normal Neurological/Psych: Oriented x3, Normal Speech, Other (No focal deficits) ED Course And Treatment - Laboratory Results Result Diagrams: 07/19/17 17:13 07/19/17 17:13 ECG: Interpreted By Me ECG Rhythm: Sinus Tachycardia Rate From EC O2 Sat by Pulse Oximetry: 98 (RA) Pulse Ox Interpretation: Normal - Other Rad CXR X-Ray: Read By Radiologist Interpretation: Findings: Moderate venous congestion. Patchy bibasilar airspace opacities. Tracheostomy tube in place. Tortuous aorta. Mild cardiomegaly. Degenerative changes in the spine. Few scattered nodular densities in the lung perez. Impression: Moderate venous congestion. Patchy bibasilar airspace opacities. Tracheostomy tube in place. Tortuous aorta. Mild cardiomegaly. Degenerative changes in the spine. Few scattered nodular densities in the lung perez. Medical Decision Making Medical Decision Making: copd/mucus plugging- improved s/p suctioning. Time: 17:13 Initial Plan: --EKG --CMP --Pro-BNP --Troponin I --CBC --PTT --Prothrombin time --VBG --Chest x-ray --Urinalysis --Urine culture --Blood culture --Solu-Medrol 125 mg IVP --Duoneb 3ml INH x3 --Tylenol 975 mg PO --IVF hydration --Metronidazole IV --Vanco IV --Cipro IV vitals stable in er sp suctioning. covered empricially. case discussed with dr mcclure accepts. sat 99% Disposition - Disposition Disposition: HOSPITALIZED Disposition Time: 03:00 Condition: FAIR - Clinical Impression Clinical Impression: COPD (chronic obstructive pulmonary disease) - Scribe Statement The provider has reviewed the documentation as recorded by the Tessibwilliams Keenan Provider Attestation: All medical record entries made by the Tessibe were at my direction and personally dictated by me. I have reviewed the chart and agree that the record accurately reflects my personal performance of the history, physical exam, medical decision making, and the department course for this patient. I have also personally directed, reviewed, and agree with the discharge instructions and disposition. Decision To Admit - Pt Status Changed To: Hospital Disposition Of: Inpatient - Admit Certification Admit to Inpatient:: After my assessment, the patient will require hospitalization for at least two midnights. This is because of the severity of symptoms shown, intensity of services needed, and/or the medical risk in this patient being treated as an outpatient. - InPatient: Physician Admission Certification: I certify that this patient requires 2 or more midnights of care for the following reason:: needs inpt steriods. - . Bed Request Type: Telemetry Admitting Physician: dA Mcclure Patient Diagnosis: COPD (chronic obstructive pulmonary disease)
[2017-07-19] MEDS ORDERED: Acetaminophen 650mg/20.3ml solution UD ONE (17:25)
[2017-07-19] MEDS ORDERED: metroNIDAZOLE IV 500 mg/100 ml 500 MG/100 ML BAG IVPB STA (17:25)
[2017-07-19] MEDS ORDERED: Ciprofloxacin 400mg/200ml D5W 400 MG/200 ML BAG IVPB STA (17:25)
[2017-07-19 17:33] LABS: VENOUS BLOOD GAS BASE EXCESS -1.2 mmol/L (0.0-2.0); VENOUS BLOOD GAS PCO2 51 mmHg (40-60); VENOUS BLOOD GAS PO2 49 mm/Hg (30-55); VENOUS BLOOD PH 7.31 (7.32-7.43)
[2017-07-19 17:38] LABS: PROTHROMBIN TIME 10.8 SECONDS (9.7-12.2)
[2017-07-19 17:40] LABS: ALB/GLOB RATIO 0.9 (1.0-2.1); ALBUMIN 3.9 g/dL (3.5-5.0); ALT/SGPT 22 U/L (9-52); AST/SGOT 18 U/L (14-36); BLOOD UREA NITROGEN 16 mg/dL (7-17); CALCIUM 9.2 mg/dl (8.6-10.4); GFR AFRICAN-AMERICAN > 60; GFR NON-AFRICAN AMERICAN > 60
[2017-07-19 17:44] LABS: B-TYPE NATRIURETIC PEPTIDE 140 pg/mL (0-900)
[2017-07-19] MEDS ORDERED: Vancomycin 1 gm/NS 200 ml 1 GM/200 ML BAG IVPB ONE (17:45)
[2017-07-19] MEDS ORDERED: Ciprofloxacin 400mg/200ml D5W 400 MG/200 ML BAG IVPB ONE (17:45)
--- NOTE | 2017-07-19 18:12 | RAD ---
Chest x-ray single frontal view History: Chest pain. Comparison: 07/03/2017 Findings: Moderate venous congestion. Patchy bibasilar airspace opacities. Tracheostomy tube in place. Tortuous aorta. Mild cardiomegaly. Degenerative changes in the spine. Few scattered nodular densities in the lung perez. Impression: Moderate venous congestion. Patchy bibasilar airspace opacities. Tracheostomy tube in place. Tortuous aorta. Mild cardiomegaly. Degenerative changes in the spine. Few scattered nodular densities in the lung perez.
[2017-07-19 18:17] LABS: URINE BILIRUBIN NEGATIVE (NEGATIVE); URINE BLOOD NEGATIVE (NEGATIVE); URINE CLARITY Clear (Clear); URINE COLOR Yellow (YELLOW); URINE GLUCOSE (UA) 1+ mg/dL (Normal); URINE LEUKOCYTE ESTERASE NEG Leu/uL (Negative); URINE PROTEIN NEGATIVE (NEGATIVE); URINE UROBILINOGEN NORMAL mg/dL (0.2-1.0)
[2017-07-19] MEDS ORDERED: Lidocaine 2% Jelly (Uro-Jet) ONE (19:58)
[2017-07-20] MEDS: guaiFENesin 200 mg/10 ml Syrup UD PO SCH ×5 (00:06→16:30)
[2017-07-20] MEDS ORDERED: MethylPREDNISolone 40 mg Vial IVP SCH (00:30)
[2017-07-20] MEDS: Piperacillin/Tazobact 3.375 GM in Sodium Chloride 100 ML IVPB SCH ×4 (01:30→17:30)
[2017-07-20] MEDS: Albuterol-Ipratrop 3 mg / 0.5 (3 ml) UD INH SCH ×4 (02:01→19:16)
--- NOTE | 2017-07-20 02:39 | CP.PCM.PN ---
Subjective - Date & Time of Evaluation Date of Evaluation: 07/20/17 Time of Evaluation: 02:30 - Subjective Subjective: Rapid response called. Rapid called at roughly 230 am. Pt has extensive medical hx , psych hx, becoming very agitated and short of breath. Hemodynamically stable. Saturating at 99. Suctioned 2x, likely removal of mucus plug. 1 mg ativan ordered. Objective - Vital Signs/Intake and Output Vital Signs (last 24 hours): Temp Pulse Resp BP Pulse Ox 98.4 F 94 H 20 143/90 98 07/19/17 20:55 07/19/17 20:57 07/19/17 20:55 07/19/17 20:55 07/19/17 20:55 Intake and Output: 07/19/17 07/20/17 18:59 06:59 Intake Total 550 Balance 550 - Medications Medications: Current Medications Albuterol/Ipratropium (Duoneb 3 Mg/0.5 Mg (3 Ml) Ud) 3 ml INH RQ6 [facility] Last Admin: 07/20/17 02:01 Dose: 3 ml Enoxaparin Sodium (Lovenox) 40 mg SC DAILY [facility] Gabapentin (Neurontin) 800 mg PO TID [facility] Guaifenesin (Robitussin) 200 mg PO Q4H [facility] Last Admin: 07/20/17 00:06 Dose: 200 mg Piperacillin Sod/Tazobactam (Sod 3.375 gm/ Sodium Chloride) 100 mls @ 200 mls/ hr IVPB Q6H [facility] PRN Reason: Protocol Last Admin: 07/20/17 01:30 Dose: 200 mls/hr Insulin Aspart (Novolog) 0 unit SC ACHS [facility] PRN Reason: Protocol Insulin Glargine (Lantus) 30 unit SC HS [facility] Lactobacillus Acidophilus (Bacid Acidophilus) 1 cap PO BID [facility] Methylprednisolone (Solu-Medrol) 40 mg IVP Q12 [facility] Montelukast Sodium (Singulair) 10 mg PO HS [facility] Oxycodone/Acetaminophen (Percocet 5/325 Mg Tab) 1 tab PO Q4H PRN PRN Reason: Pain, moderate (4-7) Stop: 07/22/17 23:26 Pantoprazole Sodium (Protonix Ec Tab) 20 mg PO DAILY [facility] Quetiapine Fumarate (Seroquel Xr) 400 mg PO Q12 [facility] Sertraline HCl (Zoloft) 100 mg PO HS [facility] Trazodone HCl (Desyrel) 150 mg PO HS [facility] Last Admin: 07/20/17 00:06 Dose: 150 mg - Labs Labs: 07/19/17 17:13 07/19/17 17:13 PT 10.8 SECONDS (9.7-12.2) 07/19/17 17:13 INR 1.0 07/19/17 17:13 APTT 32 SECONDS (21-34) 07/19/17 17:13 - Constitutional Appears: In Acute Distress - Head Exam Head Exam: ATRAUMATIC, NORMAL INSPECTION, NORMOCEPHALIC - ENT Exam ENT Exam: Mucous Membranes Moist - Neck Exam Neck Exam: Full ROM. absent: Normal Inspection Additional comments: trach collar in place - Respiratory Exam Respiratory Exam: Decreased Breath Sounds. absent: Respiratory Distress, NORMAL BREATHING PATTERN - Cardiovascular Exam Cardiovascular Exam: REGULAR RHYTHM, +S1, +S2 - GI/Abdominal Exam GI & Abdominal Exam: Soft, Normal Bowel Sounds. absent: Tenderness - Extremities Exam Extremities Exam: Full ROM, Pedal Edema - Neurological Exam Neurological Exam: Alert, Awake - Psychiatric Exam Psychiatric exam: Flat Affect - Skin Skin Exam: Dry, Intact, Normal Color, Warm Assessment and Plan - Assessment and Plan (Free Text) Assessment: 61 yo female, with past medical hx of COPD, CHF, obesity, s/p trach presenting to [facility] ER initially with complaint of sob Rapid response called for sob and agitation -pt hemodynamically stable -vitals repeated and pt saturating well -pt suctioned -likely removal of mucus plug -given 1 mg IV ativan -likely agitation related. discussed with Dr. Walker
--- NOTE | 2017-07-20 05:44 | CP.PCM.HP ---
History of Present Illness - History of Present Illness History of Present Illness: CC; shortness of breath 61 year old female with PMHx of COPD, CHF,Asthma, Anxiety, DM, and recurrent mucous plugs in tracheostomy, was brought to ED on 07/19 for shortness of breath. Patient's trachesotomy was suctioned ED by respiratory and found to have large amount of mucous. Patient denied fever or chills. After admitted, patient had a rapid response for agitation and shortness of breath; tracheostomy was suctioned again. Patient is currently resting comfortably in bed with no complaints. PMHx: COPD, CHF, Anxiety, Asthma, Depression, DM PSHx: Tracheostomy, Cholecystectomy, appendectomy, hysterectomy Allergies: Aspirin, Ceftriaxone, ibuprofen, iodine, raspberry Social Hx: No history of alcohol or tobacco use. Family Hx: Father with throat cancer. Present on Admission - Present on Admission Any Indicators Present on Admission: Yes Past Patient History - Infectious Disease Hx of Infectious Diseases: None - Tetanus Immunizations Tetanus Immunization: Unknown - Past Medical History & Family History Past Medical History?: Yes - Past Social History Smoking Status: Never Smoked - CARDIAC Hx Congestive Heart Failure: Yes Hx Hypercholesterolemia: No Hx Hypertension: Yes - PULMONARY Hx Asthma: Yes Hx Bronchitis: Yes Hx Chronic Obstructive Pulmonary Disease (COPD): Yes Hx Emphysema: Yes Hx Pneumonia: Yes Hx Sleep Apnea: Yes - NEUROLOGICAL Hx Seizures: Yes - HEENT Hx HEENT Problems: Yes Hx Cataracts: Yes - RENAL Hx Chronic Kidney Disease: No - ENDOCRINE/METABOLIC Hx Hypothyroidism: No - HEMATOLOGICAL/ONCOLOGICAL Hx Human Immunodeficiency Virus (HIV): No - INTEGUMENTARY Hx Dermatological Problems: No - MUSCULOSKELETAL/RHEUMATOLOGICAL Hx Falls: No - GASTROINTESTINAL Hx Gastrointestinal Disorders: Yes Other/Comment: cholecystectomy - GENITOURINARY/GYNECOLOGICAL Hx Sexually Transmitted Disorders: No - PSYCHIATRIC Hx Substance Use: No - SURGICAL HISTORY Hx Appendectomy: Yes Hx Cholecystectomy: Yes - ANESTHESIA Hx Anesthesia: Yes Hx Anesthesia Reactions: No Hx Malignant Hyperthermia: No Has any member of the family had a problem w/ anesthesia?: No Meds Allergies/Adverse Reactions: Allergies Allergy/AdvReac Type Severity Reaction Status Date / Time aspirin Allergy ANAPHYLAXIS Verified 07/19/17 17:10 ceftriaxone sodium Allergy ANAPHYLAXIS Verified 07/19/17 17:10 [From Rocephin] ibuprofen [From Motrin] Allergy ANAPHYLAXIS Verified 07/19/17 17:10 iodine Allergy ANAPHYLAXIS Verified 07/19/17 17:10 raspberry Allergy ANAPHYLAXIS Verified 07/19/17 17:10 Physical Exam - Constitutional Appears: No Acute Distress - Eye Exam Eye Exam: EOMI, Normal appearance, PERRL Pupil Exam: NORMAL ACCOMODATION, PERRL - Respiratory Exam Respiratory Exam: Decreased Breath Sounds, Rales - Cardiovascular Exam Cardiovascular Exam: REGULAR RHYTHM - GI/Abdominal Exam GI & Abdominal Exam: Normal Bowel Sounds, Soft. absent: Tenderness - Rectal Exam Rectal Exam: Deferred Results - Vital Signs Recent Vital Signs: Last Vital Signs Temp 97.7 F 07/19/17 23:30 Pulse 95 H 07/20/17 04:35 Resp 20 07/19/17 23:30 BP 144/80 07/19/17 23:30 Pulse Ox 96 07/19/17 23:30 - Labs Result Diagrams: 07/19/17 17:13 07/19/17 17:13 Labs: Laboratory Results - last 24 hr 07/19/17 07/19/17 07/19/17 17:13 17:13 17:13 WBC 15.9 H RBC 4.65 Hgb 12.6 Hct 38.2 MCV 82.2 MCH 27.1 MCHC 32.9 L RDW 15.5 H Plt Count 144 MPV 7.9 Neut % (Auto) 75.3 H Lymph % (Auto) 16.7 L [place] % (Auto) 6.9 Eos % (Auto) 0.8 Baso % (Auto) 0.3 Neut # (Auto) 12.0 H Lymph # (Auto) 2.7 [place] # (Auto) 1.1 H Eos # (Auto) 0.1 Baso # (Auto) 0.1 PT 10.8 INR 1.0 APTT 32 pO2 VBG pH VBG pCO2 VBG HCO3 VBG Total CO2 VBG O2 Sat (Calc) VBG Base Excess VBG Potassium Glucose Lactate FiO2 Sodium 143 Potassium 4.2 Chloride 106 Carbon Dioxide 26 Anion Gap 15 BUN 16 Creatinine 0.8 Est GFR ( Amer) > 60 Est GFR (Non-Af Amer) > 60 POC Glucose (mg/dL) Random Glucose 251 H Calcium 9.2 Total Bilirubin 0.4 AST 18 ALT 22 Alkaline Phosphatase 207 H D Troponin I < 0.0120 NT-Pro-B Natriuret Pep 140 Total Protein 8.0 Albumin 3.9 Globulin 4.2 H Albumin/Globulin Ratio 0.9 L Venous Blood Potassium Urine Color Urine Clarity Urine pH Ur Specific [place] Urine Protein Urine Glucose (UA) Urine Ketones Urine Blood Urine Nitrate Urine Bilirubin Urine Urobilinogen Ur Leukocyte Esterase Urine WBC (Auto) Urine RBC (Auto) 07/19/17 07/19/17 07/19/17 17:25 18:10 21:20 WBC RBC Hgb Hct MCV MCH MCHC RDW Plt Count MPV Neut % (Auto) Lymph % (Auto) [place] % (Auto) Eos % (Auto) Baso % (Auto) Neut # (Auto) Lymph # (Auto) [place] # (Auto) Eos # (Auto) Baso # (Auto) PT INR APTT pO2 49 VBG pH 7.31 L VBG pCO2 51 VBG HCO3 23.5 VBG Total CO2 27.3 VBG O2 Sat (Calc) 88.1 H VBG Base Excess -1.2 L VBG Potassium 3.8 Glucose 244 H Lactate 2.0 FiO2 21.0 Sodium 144.0 Potassium Chloride 110.0 H Carbon Dioxide Anion Gap BUN Creatinine Est GFR ( Amer) Est GFR (Non-Af Amer) POC Glucose (mg/dL) 281 H Random Glucose Calcium Total Bilirubin AST ALT Alkaline Phosphatase Troponin I NT-Pro-B Natriuret Pep Total Protein Albumin Globulin Albumin/Globulin Ratio Venous Blood Potassium 3.8 Urine Color Yellow Urine Clarity Clear Urine pH 5.0 Ur Specific [place] 1.013 Urine Protein Negative Urine Glucose (UA) 1+ Urine Ketones Negative Urine Blood Negative Urine Nitrate Negative Urine Bilirubin Negative Urine Urobilinogen Normal Ur Leukocyte Esterase Neg Urine WBC (Auto) < 1 Urine RBC (Auto) < 1 07/20/17 02:46 WBC RBC Hgb Hct MCV MCH MCHC RDW Plt Count MPV Neut % (Auto) Lymph % (Auto) [place] % (Auto) Eos % (Auto) Baso % (Auto) Neut # (Auto) Lymph # (Auto) [place] # (Auto) Eos # (Auto) Baso # (Auto) PT INR APTT pO2 VBG pH VBG pCO2 VBG HCO3 VBG Total CO2 VBG O2 Sat (Calc) VBG Base Excess VBG Potassium Glucose Lactate FiO2 Sodium Potassium Chloride Carbon Dioxide Anion Gap BUN Creatinine Est GFR ( Amer) Est GFR (Non-Af Amer) POC Glucose (mg/dL) 419 H* Random Glucose Calcium Total Bilirubin AST ALT Alkaline Phosphatase Troponin I NT-Pro-B Natriuret Pep Total Protein Albumin Globulin Albumin/Globulin Ratio Venous Blood Potassium Urine Color Urine Clarity Urine pH Ur Specific [place] Urine Protein Urine Glucose (UA) Urine Ketones Urine Blood Urine Nitrate Urine Bilirubin Urine Urobilinogen Ur Leukocyte Esterase Urine WBC (Auto) Urine RBC (Auto) Assessment & Plan (1) COPD exacerbation Status: Acute (2) Pneumonia Assessment and Plan: Assessment/Plan: 1. Tracheobronchitis - Continue Duoneb - Continue Solumedrol - Continue Singulair - Continue Zosyn - Continue suctioning tracheostomy Status: Acute (3) Respiratory distress Status: Acute (4) Steroid-induced hyperglycemia Status: Acute (5) Thromboembolic pulmonary hypertension Status: Acute (6) Anxiety and depression Status: Chronic (7) Bipolar disorder Status: Chronic (8) Diabetes mellitus with neuropathy Status: Chronic (9) Diabetes mellitus, insulin dependent (IDDM), uncontrolled Status: Chronic (10) HTN (hypertension) Status: Chronic (11) Morbid obesity Status: Chronic
[2017-07-20] MEDS: (Novolog) Insulin Aspart, Recombinant 100 u/ml 10 ml vial SC SCH ×4 (08:15→21:31)
[2017-07-20] MEDS ORDERED: MethylPREDNISolone 40 mg Vial IM SCH (10:00)
[2017-07-20] MEDS: Pantoprazole 20 mg EC Tab PO SCH (10:25)
[2017-07-20] MEDS: Lactobacillus Acidophilus 500 MU Cap PO SCH ×2 (10:25→18:28)
[2017-07-20] MEDS: MethylPREDNISolone 40 mg Vial IVP SCH ×2 (10:25→21:30)
[2017-07-20] MEDS: QUEtiapine 200 mg XR Tab PO SCH ×2 (10:26→21:31)
[2017-07-20] MEDS: Enoxaparin 40 mg Syringe SC SCH (10:26)
--- NOTE | 2017-07-20 13:09 | CP.PCM.CON ---
History of Present Illness - History of Present Illness History of Present Illness: Reason for consult: Pneumonia 61 year old female with PMHx of COPD, CHF,Asthma, Anxiety, DM, and recurrent mucous plugs in tracheostomy, was brought to ED on 07/19 for shortness of breath. Patient's trachesotomy was suctioned ED by respiratory and found to have large amount of mucous. Patient denied fever or chills. After admitted, patient had a rapid response for agitation and shortness of breath; tracheostomy was suctioned again. Patient is currently resting comfortably in bed with no complaints. PMHx: COPD, CHF, Anxiety, Asthma, Depression, DM PSHx: Tracheostomy, Cholecystectomy, appendectomy, hysterectomy Allergies: Aspirin, Ceftriaxone, ibuprofen, iodine, raspberry Social Hx: No history of alcohol or tobacco use. Family Hx: Father with throat cancer. Assessment/Plan: 1. Tracheobronchitis - Continue Duoneb - Continue Solumedrol - Continue Singulair - Continue Zosyn - Continue suctioning tracheostomy 2. Anxiety - Management per primary team 3. CHF - Management per primary team 4. DM - Management per primary team Past Patient History - Infectious Disease Hx of Infectious Diseases: None - Tetanus Immunizations Tetanus Immunization: Unknown - Past Medical History & Family History Past Medical History?: Yes - Past Social History Smoking Status: Never Smoked - CARDIAC Hx Congestive Heart Failure: Yes Hx Hypercholesterolemia: No Hx Hypertension: Yes - PULMONARY Hx Chronic Obstructive Pulmonary Disease (COPD): Yes ([place],) - NEUROLOGICAL Hx Seizures: Yes - HEENT Hx HEENT Problems: Yes Hx Cataracts: Yes - RENAL Hx Chronic Kidney Disease: No - ENDOCRINE/METABOLIC Hx Hypothyroidism: No - HEMATOLOGICAL/ONCOLOGICAL Hx Human Immunodeficiency Virus (HIV): No - INTEGUMENTARY Hx Dermatological Problems: No - MUSCULOSKELETAL/RHEUMATOLOGICAL Hx Falls: No - GASTROINTESTINAL Hx Gastrointestinal Disorders: Yes Other/Comment: cholecystectomy - GENITOURINARY/GYNECOLOGICAL Hx Sexually Transmitted Disorders: No - PSYCHIATRIC Hx Substance Use: No - SURGICAL HISTORY Hx Appendectomy: Yes Hx Cholecystectomy: Yes - ANESTHESIA Hx Anesthesia: Yes Hx Anesthesia Reactions: No Hx Malignant Hyperthermia: No Has any member of the family had a problem w/ anesthesia?: No Meds Allergies/Adverse Reactions: Allergies Allergy/AdvReac Type Severity Reaction Status Date / Time aspirin Allergy ANAPHYLAXIS Verified 07/19/17 17:10 ceftriaxone sodium Allergy ANAPHYLAXIS Verified 07/19/17 17:10 [From Rocephin] ibuprofen [From Motrin] Allergy ANAPHYLAXIS Verified 07/19/17 17:10 iodine Allergy ANAPHYLAXIS Verified 07/19/17 17:10 raspberry Allergy ANAPHYLAXIS Verified 07/19/17 17:10 - Medications Medications: Current Medications Albuterol/Ipratropium (Duoneb 3 Mg/0.5 Mg (3 Ml) Ud) 3 ml INH RQ6 [facility] Last Admin: 07/20/17 08:38 Dose: 3 ml Enoxaparin Sodium (Lovenox) 40 mg SC DAILY [facility] Last Admin: 07/20/17 10:26 Dose: 40 mg Gabapentin (Neurontin) 800 mg PO TID [facility] Last Admin: 07/20/17 10:25 Dose: 800 mg Guaifenesin (Robitussin) 200 mg PO Q4H [facility] Last Admin: 07/20/17 12:29 Dose: 200 mg Piperacillin Sod/Tazobactam (Sod 3.375 gm/ Sodium Chloride) 100 mls @ 200 mls/ hr IVPB Q6H [facility] PRN Reason: Protocol Last Admin: 07/20/17 12:29 Dose: 200 mls/hr Insulin Aspart (Novolog) 0 unit SC ACHS [facility] PRN Reason: Protocol Last Admin: 07/20/17 12:29 Dose: 2 unit Insulin Glargine (Lantus) 30 unit SC HS [facility] Lactobacillus Acidophilus (Bacid Acidophilus) 1 cap PO BID [facility] Last Admin: 07/20/17 10:25 Dose: 1 cap Methylprednisolone (Solu-Medrol) 40 mg IVP Q12 [facility] Last Admin: 07/20/17 10:25 Dose: 40 mg Montelukast Sodium (Singulair) 10 mg PO HS [facility] Oxycodone/Acetaminophen (Percocet 5/325 Mg Tab) 1 tab PO Q4H PRN PRN Reason: Pain, moderate (4-7) Stop: 07/22/17 23:26 Pantoprazole Sodium (Protonix Ec Tab) 20 mg PO DAILY [facility] Last Admin: 07/20/17 10:25 Dose: 20 mg Quetiapine Fumarate (Seroquel Xr) 400 mg PO Q12 [facility] Last Admin: 07/20/17 10:26 Dose: 400 mg Sertraline HCl (Zoloft) 100 mg PO HS [facility] Trazodone HCl (Desyrel) 150 mg PO HS [facility] Last Admin: 07/20/17 00:06 Dose: 150 mg Results - Vital Signs Recent Vital Signs: Last Vital Signs Temp 98.1 F 07/20/17 08:54 Pulse 99 H 07/20/17 08:54 Resp 20 07/20/17 08:54 BP 135/85 07/20/17 08:54 Pulse Ox 97 07/20/17 08:54 - Labs Result Diagrams: 07/19/17 17:13 07/19/17 17:13 Labs: Laboratory Results - last 24 hr 07/19/17 07/19/17 07/19/17 17:13 17:13 17:13 WBC 15.9 H RBC 4.65 Hgb 12.6 Hct 38.2 MCV 82.2 MCH 27.1 MCHC 32.9 L RDW 15.5 H Plt Count 144 MPV 7.9 Neut % (Auto) 75.3 H Lymph % (Auto) 16.7 L [place] % (Auto) 6.9 Eos % (Auto) 0.8 Baso % (Auto) 0.3 Neut # (Auto) 12.0 H Lymph # (Auto) 2.7 [place] # (Auto) 1.1 H Eos # (Auto) 0.1 Baso # (Auto) 0.1 PT 10.8 INR 1.0 APTT 32 pO2 VBG pH VBG pCO2 VBG HCO3 VBG Total CO2 VBG O2 Sat (Calc) VBG Base Excess VBG Potassium Glucose Lactate FiO2 Sodium 143 Potassium 4.2 Chloride 106 Carbon Dioxide 26 Anion Gap 15 BUN 16 Creatinine 0.8 Est GFR ( Amer) > 60 Est GFR (Non-Af Amer) > 60 POC Glucose (mg/dL) Random Glucose 251 H Calcium 9.2 Total Bilirubin 0.4 AST 18 ALT 22 Alkaline Phosphatase 207 H D Troponin I < 0.0120 NT-Pro-B Natriuret Pep 140 Total Protein 8.0 Albumin 3.9 Globulin 4.2 H Albumin/Globulin Ratio 0.9 L Venous Blood Potassium Urine Color Urine Clarity Urine pH Ur Specific [place] Urine Protein Urine Glucose (UA) Urine Ketones Urine Blood Urine Nitrate Urine Bilirubin Urine Urobilinogen Ur Leukocyte Esterase Urine WBC (Auto) Urine RBC (Auto) 07/19/17 07/19/17 07/19/17 17:25 18:10 21:20 WBC RBC Hgb Hct MCV MCH MCHC RDW Plt Count MPV Neut % (Auto) Lymph % (Auto) [place] % (Auto) Eos % (Auto) Baso % (Auto) Neut # (Auto) Lymph # (Auto) [place] # (Auto) Eos # (Auto) Baso # (Auto) PT INR APTT pO2 49 VBG pH 7.31 L VBG pCO2 51 VBG HCO3 23.5 VBG Total CO2 27.3 VBG O2 Sat (Calc) 88.1 H VBG Base Excess -1.2 L VBG Potassium 3.8 Glucose 244 H Lactate 2.0 FiO2 21.0 Sodium 144.0 Potassium Chloride 110.0 H Carbon Dioxide Anion Gap BUN Creatinine Est GFR ( Amer) Est GFR (Non-Af Amer) POC Glucose (mg/dL) 281 H Random Glucose Calcium Total Bilirubin AST ALT Alkaline Phosphatase Troponin I NT-Pro-B Natriuret Pep Total Protein Albumin Globulin Albumin/Globulin Ratio Venous Blood Potassium 3.8 Urine Color Yellow Urine Clarity Clear Urine pH 5.0 Ur Specific [place] 1.013 Urine Protein Negative Urine Glucose (UA) 1+ Urine Ketones Negative Urine Blood Negative Urine Nitrate Negative Urine Bilirubin Negative Urine Urobilinogen Normal Ur Leukocyte Esterase Neg Urine WBC (Auto) < 1 Urine RBC (Auto) < 1 07/20/17 07/20/17 02:46 06:39 WBC RBC Hgb Hct MCV MCH MCHC RDW Plt Count MPV Neut % (Auto) Lymph % (Auto) [place] % (Auto) Eos % (Auto) Baso % (Auto) Neut # (Auto) Lymph # (Auto) [place] # (Auto) Eos # (Auto) Baso # (Auto) PT INR APTT pO2 VBG pH VBG pCO2 VBG HCO3 VBG Total CO2 VBG O2 Sat (Calc) VBG Base Excess VBG Potassium Glucose Lactate FiO2 Sodium Potassium Chloride Carbon Dioxide Anion Gap BUN Creatinine Est GFR ( Amer) Est GFR (Non-Af Amer) POC Glucose (mg/dL) 419 H* 347 H Random Glucose Calcium Total Bilirubin AST ALT Alkaline Phosphatase Troponin I NT-Pro-B Natriuret Pep Total Protein Albumin Globulin Albumin/Globulin Ratio Venous Blood Potassium Urine Color Urine Clarity Urine pH Ur Specific [place] Urine Protein Urine Glucose (UA) Urine Ketones Urine Blood Urine Nitrate Urine Bilirubin Urine Urobilinogen Ur Leukocyte Esterase Urine WBC (Auto) Urine RBC (Auto)
[2017-07-20] MEDS: Oxycodone/Acetaminophen 5/325 mg Tab PO PRN (18:43)
[2017-07-20] MEDS: (Lantus) Insulin Glargine, Recombinant SC SCH (21:29)
[2017-07-21] MEDS: Piperacillin/Tazobact 3.375 GM in Sodium Chloride 100 ML IVPB SCH ×5 (01:19→22:42)
[2017-07-21] MEDS: Albuterol-Ipratrop 3 mg / 0.5 (3 ml) UD INH SCH ×4 (01:30→19:35)
--- NOTE | 2017-07-21 02:51 | CARD ---
APPROVED REPORT EKG Measurement Heart [id number] <Conclusion> Sinus tachycardia Abnormal ECG
[2017-07-21] MEDS: Oxycodone/Acetaminophen 5/325 mg Tab PO PRN ×3 (03:07→18:17)
--- NOTE | 2017-07-21 04:22 | CP.PCM.PN ---
Subjective - Date & Time of Evaluation Date of Evaluation: 07/20/17 Time of Evaluation: 18:00 - Subjective Subjective: PT seen and exmained, is more calm now, earlier today, Rapid response called for sob and agitation -pt hemodynamically stable -vitals repeated and pt saturating well -pt suctioned -likely removal of mucus plug -given 1 mg IV ativan -likely agitation related. Objective - Vital Signs/Intake and Output Vital Signs (last 24 hours): Temp Pulse Resp BP Pulse Ox 97.7 F 79 20 126/78 95 07/20/17 23:25 07/21/17 01:00 07/20/17 23:25 07/20/17 23:25 07/20/17 23:25 Intake and Output: 07/20/17 07/21/17 18:59 06:59 Intake Total 840 250 Balance 840 250 - Medications Medications: Current Medications Albuterol/Ipratropium (Duoneb 3 Mg/0.5 Mg (3 Ml) Ud) 3 ml INH RQ6 [facility] Last Admin: 07/21/17 01:30 Dose: 3 ml Enoxaparin Sodium (Lovenox) 40 mg SC DAILY [facility] Last Admin: 07/20/17 10:26 Dose: 40 mg Gabapentin (Neurontin) 800 mg PO TID [facility] Last Admin: 07/20/17 18:28 Dose: 800 mg Guaifenesin/Codeine Phosphate (Guaifenesin/Codeine) 10 ml PO TID [facility] Piperacillin Sod/Tazobactam (Sod 3.375 gm/ Sodium Chloride) 100 mls @ 200 mls/ hr IVPB Q6H [facility] PRN Reason: Protocol Last Admin: 07/21/17 01:19 Dose: Not Given Insulin Aspart (Novolog) 0 unit SC ACHS [facility] PRN Reason: Protocol Last Admin: 07/20/17 21:31 Dose: Not Given Insulin Glargine (Lantus) 30 unit SC HS [facility] Last Admin: 07/20/17 21:29 Dose: 30 units Lactobacillus Acidophilus (Bacid Acidophilus) 1 cap PO BID [facility] Last Admin: 07/20/17 18:28 Dose: 1 cap Methylprednisolone (Solu-Medrol) 40 mg IVP Q12 [facility] Last Admin: 07/20/17 21:30 Dose: 40 mg Montelukast Sodium (Singulair) 10 mg PO HS [facility] Last Admin: 07/20/17 21:30 Dose: 10 mg Oxycodone/Acetaminophen (Percocet 5/325 Mg Tab) 1 tab PO Q4H [facility] PRN Reason: Pain, moderate (4-7) Stop: 07/22/17 23:26 Last Admin: 07/21/17 03:07 Dose: 1 tab Pantoprazole Sodium (Protonix Ec Tab) 20 mg PO DAILY [facility] Last Admin: 07/20/17 10:25 Dose: 20 mg Quetiapine Fumarate (Seroquel Xr) 400 mg PO Q12 [facility] Last Admin: 07/20/17 21:31 Dose: 400 mg Sertraline HCl (Zoloft) 100 mg PO [facility] Last Admin: 07/20/17 21:31 Dose: 100 mg Trazodone HCl (Desyrel) 150 mg PO [facility] Last Admin: 07/20/17 21:30 Dose: 150 mg - Labs Labs: 07/19/17 17:13 07/19/17 17:13 PT 10.8 SECONDS (9.7-12.2) 07/19/17 17:13 INR 1.0 07/19/17 17:13 APTT 32 SECONDS (21-34) 07/19/17 17:13 - Constitutional Appears: No Acute Distress, Chronically Ill - Head Exam Head Exam: ATRAUMATIC, NORMAL INSPECTION, NORMOCEPHALIC - Eye Exam Eye Exam: EOMI, Normal appearance, PERRL Pupil Exam: NORMAL ACCOMODATION, PERRL - Respiratory Exam Respiratory Exam: Clear to Ausculation Bilateral, NORMAL BREATHING PATTERN - Cardiovascular Exam Cardiovascular Exam: REGULAR RHYTHM, +S1, +S2. absent: Murmur - GI/Abdominal Exam GI & Abdominal Exam: Soft, Normal Bowel Sounds. absent: Tenderness Assessment and Plan (1) COPD exacerbation Status: Acute (2) Pneumonia Assessment & Plan: pulmonary consulted antibiotics nebulizer Status: Acute (3) Respiratory distress Status: Acute (4) Steroid-induced hyperglycemia Status: Acute (5) Thromboembolic pulmonary hypertension Status: Acute (6) Anxiety and depression Status: Chronic (7) Bipolar disorder Assessment & Plan: -given 1 mg IV ativan -likely agitation related. Status: Chronic (8) Diabetes mellitus with neuropathy Status: Chronic (9) Diabetes mellitus, insulin dependent (IDDM), uncontrolled Status: Chronic (10) HTN (hypertension) Status: Chronic (11) Morbid obesity Status: Chronic
[2017-07-21] MEDS: (Novolog) Insulin Aspart, Recombinant 100 u/ml 10 ml vial SC SCH ×4 (08:36→21:38)
[2017-07-21] MEDS: MethylPREDNISolone 40 mg Vial IVP SCH ×2 (10:14→21:37)
[2017-07-21] MEDS: Pantoprazole 20 mg EC Tab PO SCH (10:15)
[2017-07-21] MEDS: guaiFENesin-Codeine 100-10mg/5ml Syrup (10ml) UD PO SCH ×3 (10:15→18:04)
[2017-07-21] MEDS: Lactobacillus Acidophilus 500 MU Cap PO SCH ×2 (10:15→18:04)
[2017-07-21] MEDS: Enoxaparin 40 mg Syringe SC SCH (10:15)
[2017-07-21] MEDS: QUEtiapine 200 mg XR Tab PO SCH ×2 (10:16→21:38)
--- NOTE | 2017-07-21 11:59 | CP.PCM.PN ---
Subjective - Date & Time of Evaluation Date of Evaluation: 07/21/17 Time of Evaluation: 11:56 - Subjective Subjective: Pulmonary Follow up Covering Dr. Rosado The patient was Seen/interviewed and examined by me at the bedside, Medical records reviewed and Management issues were discussed and formulated with the house staff. Events reviewed 61 year old female with PMHx of COPD, CHF,Asthma, Anxiety, DM, and recurrent mucous plugs in tracheostomy, was brought to ED on 07/19 for shortness of breath. Patient's trachesotomy was suctioned ED by respiratory and found to have large amount of mucous. Patient lying in bed comfortably. Pt AAO x3. Alert, follows commands Patient states improved dyspnea Continued on supplemental oxygen via Trach Patient denied fever or chills. Denies chest pain. I&O reviewed Afebrile, NSR on the monitor, AM Labs reviewed Objective - Vital Signs/Intake and Output Vital Signs (last 24 hours): Temp Pulse Resp BP Pulse Ox 97.5 F L 78 20 126/77 97 07/21/17 07:00 07/21/17 07:00 07/21/17 07:00 07/21/17 07:00 07/21/17 07:00 Intake and Output: 07/21/17 07/21/17 06:59 18:59 Intake Total 250 Balance 250 - Medications Medications: Current Medications Albuterol/Ipratropium (Duoneb 3 Mg/0.5 Mg (3 Ml) Ud) 3 ml INH RQ6 [facility] Last Admin: 07/21/17 08:54 Dose: 3 ml Enoxaparin Sodium (Lovenox) 40 mg SC DAILY [facility] Last Admin: 07/21/17 10:15 Dose: 40 mg Gabapentin (Neurontin) 800 mg PO TID [facility] Last Admin: 07/21/17 10:15 Dose: 800 mg Guaifenesin/Codeine Phosphate (Guaifenesin/Codeine) 10 ml PO TID [facility] Last Admin: 07/21/17 10:15 Dose: 10 ml Piperacillin Sod/Tazobactam (Sod 3.375 gm/ Sodium Chloride) 100 mls @ 200 mls/ hr IVPB Q6H [facility] PRN Reason: Protocol Last Admin: 07/21/17 11:06 Dose: 200 mls/hr Insulin Aspart (Novolog) 0 unit SC ACHS [facility] PRN Reason: Protocol Last Admin: 07/21/17 08:36 Dose: 1 unit Insulin Glargine (Lantus) 30 unit SC [facility] Last Admin: 07/20/17 21:29 Dose: 30 units Lactobacillus Acidophilus (Bacid Acidophilus) 1 cap PO BID [facility] Last Admin: 07/21/17 10:15 Dose: 1 cap Methylprednisolone (Solu-Medrol) 40 mg IVP Q12 [facility] Last Admin: 07/21/17 10:14 Dose: 40 mg Montelukast Sodium (Singulair) 10 mg PO [facility] Last Admin: 07/20/17 21:30 Dose: 10 mg Oxycodone/Acetaminophen (Percocet 5/325 Mg Tab) 1 tab PO Q4H PRN PRN Reason: Pain, moderate (4-7) Stop: 07/22/17 23:26 Last Admin: 07/21/17 11:26 Dose: 1 tab Pantoprazole Sodium (Protonix Ec Tab) 20 mg PO DAILY [facility] Last Admin: 07/21/17 10:15 Dose: 20 mg Quetiapine Fumarate (Seroquel Xr) 400 mg PO Q12 [facility] Last Admin: 07/21/17 10:16 Dose: 400 mg Sertraline HCl (Zoloft) 100 mg PO [facility] Last Admin: 07/20/17 21:31 Dose: 100 mg Trazodone HCl (Desyrel) 150 mg PO [facility] Last Admin: 07/20/17 21:30 Dose: 150 mg - Labs Labs: 07/19/17 17:13 07/19/17 17:13 PT 10.8 SECONDS (9.7-12.2) 07/19/17 17:13 INR 1.0 07/19/17 17:13 APTT 32 SECONDS (21-34) 07/19/17 17:13 - Constitutional Appears: Well, Non-toxic - Head Exam Head Exam: ATRAUMATIC, NORMAL INSPECTION - Eye Exam Eye Exam: EOMI. absent: Conjunctival injection Pupil Exam: absent: Fixed - ENT Exam ENT Exam: Mucous Membranes Dry - Neck Exam Neck Exam: Full ROM. absent: Tenderness, Thyromegaly - Respiratory Exam Respiratory Exam: Decreased Breath Sounds, Prolonged Expiratory Phase. absent: Accessory Muscle Use, Chest Wall Tenderness, Clear to Ausculation Bilateral, Rales, Rhonchi, Wheezes - Cardiovascular Exam Cardiovascular Exam: REGULAR RHYTHM, +S1, +S2. absent: Diastolic murmur, Irregular Rhythm, Murmur - GI/Abdominal Exam GI & Abdominal Exam: Soft. absent: Bruit, Distended, Firm, Guarding, Rigid, Tenderness - Back Exam Back Exam: absent: CVA tenderness (L), CVA tenderness (R) - Neurological Exam Neurological Exam: Alert, Altered, Awake, CN II-XII Intact, Motor Sensory Deficit, Oriented x3 Assessment and Plan (1) Chr obstructive pulmonary disease w/ acute lower respiratory infxn Status: Acute (2) Respiratory distress Status: Acute (3) Mucus plugging of bronchi Status: Acute (4) COPD exacerbation Status: Acute (5) Dyspnea Status: Acute (6) Healthcare-associated pneumonia Status: Acute (7) Prophylactic measure Status: Acute - Assessment and Plan (Free Text) Assessment: - Continue Duoneb - Continue Solumedrol - Continue Singulair - Continue Zosyn - Continue suctioning tracheostomy
[2017-07-21] MEDS: (Lantus) Insulin Glargine, Recombinant SC SCH (21:37)
[2017-07-22] MEDS: Albuterol-Ipratrop 3 mg / 0.5 (3 ml) UD INH SCH ×4 (01:27→19:27)
[2017-07-22] MEDS: Piperacillin/Tazobact 3.375 GM in Sodium Chloride 100 ML IVPB SCH ×3 (05:00→17:41)
--- NOTE | 2017-07-22 07:42 | CP.PCM.PN ---
Subjective - Date & Time of Evaluation Date of Evaluation: 07/21/17 Time of Evaluation: 19:00 - Subjective Subjective: Pt seen and examined at bedside, afebrile, coughing, congested and wheezing Objective - Vital Signs/Intake and Output Vital Signs (last 24 hours): Temp Pulse Resp BP Pulse Ox 98 F 86 20 129/77 96 07/21/17 23:25 07/21/17 23:25 07/21/17 23:25 07/21/17 23:25 07/21/17 23:25 Intake and Output: 07/22/17 07/22/17 06:59 18:59 Intake Total 700 200 Output Total 400 800 Balance 300 -600 - Medications Medications: Current Medications Albuterol/Ipratropium (Duoneb 3 Mg/0.5 Mg (3 Ml) Ud) 3 ml INH RQ6 [facility] Last Admin: 07/22/17 01:27 Dose: 3 ml Enoxaparin Sodium (Lovenox) 40 mg SC DAILY [facility] Last Admin: 07/21/17 10:15 Dose: 40 mg Gabapentin (Neurontin) 800 mg PO TID [facility] Last Admin: 07/21/17 18:04 Dose: 800 mg Guaifenesin/Codeine Phosphate (Guaifenesin/Codeine) 10 ml PO TID [facility] Last Admin: 07/21/17 18:04 Dose: 10 ml Piperacillin Sod/Tazobactam (Sod 3.375 gm/ Sodium Chloride) 100 mls @ 200 mls/ hr IVPB Q6H [facility] PRN Reason: Protocol Last Admin: 07/22/17 05:00 Dose: 200 mls/hr Insulin Aspart (Novolog) 0 unit SC ACHS [facility] PRN Reason: Protocol Last Admin: 07/21/17 21:38 Dose: 2 unit Insulin Glargine (Lantus) 30 unit SC HS [facility] Last Admin: 07/21/17 21:37 Dose: 30 units Lactobacillus Acidophilus (Bacid Acidophilus) 1 cap PO BID [facility] Last Admin: 07/21/17 18:04 Dose: 1 cap Methylprednisolone (Solu-Medrol) 40 mg IVP Q12 [facility] Last Admin: 07/21/17 21:37 Dose: 40 mg Montelukast Sodium (Singulair) 10 mg PO HS [facility] Last Admin: 07/21/17 21:38 Dose: 10 mg Oxycodone/Acetaminophen (Percocet 5/325 Mg Tab) 1 tab PO Q4H PRN PRN Reason: Pain, moderate (4-7) Stop: 07/22/17 23:26 Last Admin: 07/21/17 18:17 Dose: 1 tab Pantoprazole Sodium (Protonix Ec Tab) 20 mg PO DAILY [facility] Last Admin: 07/21/17 10:15 Dose: 20 mg Quetiapine Fumarate (Seroquel Xr) 400 mg PO Q12 [facility] Last Admin: 07/21/17 21:38 Dose: 400 mg Sertraline HCl (Zoloft) 100 mg PO HS [facility] Last Admin: 07/21/17 21:38 Dose: 100 mg Trazodone HCl (Desyrel) 150 mg PO [facility] Last Admin: 07/21/17 21:38 Dose: 150 mg - Labs Labs: 07/19/17 17:13 07/19/17 17:13 PT 10.8 SECONDS (9.7-12.2) 07/19/17 17:13 INR 1.0 07/19/17 17:13 APTT 32 SECONDS (21-34) 07/19/17 17:13 - Constitutional Appears: No Acute Distress - Head Exam Head Exam: ATRAUMATIC, NORMAL INSPECTION, NORMOCEPHALIC - Eye Exam Eye Exam: EOMI, Normal appearance, PERRL Pupil Exam: NORMAL ACCOMODATION, PERRL - Respiratory Exam Respiratory Exam: Decreased Breath Sounds, Rhonchi, Wheezes - Cardiovascular Exam Cardiovascular Exam: REGULAR RHYTHM, +S1, +S2. absent: Murmur - GI/Abdominal Exam GI & Abdominal Exam: Soft, Normal Bowel Sounds. absent: Tenderness Assessment and Plan (1) COPD exacerbation Status: Acute (2) Pneumonia Status: Acute (3) Respiratory distress Status: Acute (4) Steroid-induced hyperglycemia Status: Acute (5) Thromboembolic pulmonary hypertension Status: Acute (6) Anxiety and depression Status: Chronic (7) Bipolar disorder Status: Chronic (8) Diabetes mellitus with neuropathy Status: Chronic (9) Diabetes mellitus, insulin dependent (IDDM), uncontrolled Status: Chronic (10) HTN (hypertension) Status: Chronic (11) Morbid obesity Status: Chronic
--- NOTE | 2017-07-22 07:43 | CP.PCM.PN ---
Subjective - Date & Time of Evaluation Date of Evaluation: 07/22/17 Time of Evaluation: 20:00 - Subjective Subjective: Pt seen and examined at bedside Objective - Vital Signs/Intake and Output Vital Signs (last 24 hours): Temp Pulse Resp BP Pulse Ox 98 F 86 20 129/77 96 07/21/17 23:25 07/21/17 23:25 07/21/17 23:25 07/21/17 23:25 07/21/17 23:25 Intake and Output: 07/22/17 07/22/17 06:59 18:59 Intake Total 700 200 Output Total 400 800 Balance 300 -600 - Medications Medications: Current Medications Albuterol/Ipratropium (Duoneb 3 Mg/0.5 Mg (3 Ml) Ud) 3 ml INH RQ6 [facility] Last Admin: 07/22/17 01:27 Dose: 3 ml Enoxaparin Sodium (Lovenox) 40 mg SC DAILY [facility] Last Admin: 07/21/17 10:15 Dose: 40 mg Gabapentin (Neurontin) 800 mg PO TID [facility] Last Admin: 07/21/17 18:04 Dose: 800 mg Guaifenesin/Codeine Phosphate (Guaifenesin/Codeine) 10 ml PO TID [facility] Last Admin: 07/21/17 18:04 Dose: 10 ml Piperacillin Sod/Tazobactam (Sod 3.375 gm/ Sodium Chloride) 100 mls @ 200 mls/ hr IVPB Q6H [facility] PRN Reason: Protocol Last Admin: 07/22/17 05:00 Dose: 200 mls/hr Insulin Aspart (Novolog) 0 unit SC ACHS [facility] PRN Reason: Protocol Last Admin: 07/21/17 21:38 Dose: 2 unit Insulin Glargine (Lantus) 30 unit SC [facility] Last Admin: 07/21/17 21:37 Dose: 30 units Lactobacillus Acidophilus (Bacid Acidophilus) 1 cap PO BID [facility] Last Admin: 07/21/17 18:04 Dose: 1 cap Methylprednisolone (Solu-Medrol) 40 mg IVP Q12 [facility] Last Admin: 07/21/17 21:37 Dose: 40 mg Montelukast Sodium (Singulair) 10 mg PO HS [facility] Last Admin: 07/21/17 21:38 Dose: 10 mg Oxycodone/Acetaminophen (Percocet 5/325 Mg Tab) 1 tab PO Q4H PRN PRN Reason: Pain, moderate (4-7) Stop: 07/22/17 23:26 Last Admin: 07/21/17 18:17 Dose: 1 tab Pantoprazole Sodium (Protonix Ec Tab) 20 mg PO DAILY [facility] Last Admin: 07/21/17 10:15 Dose: 20 mg Quetiapine Fumarate (Seroquel Xr) 400 mg PO Q12 [facility] Last Admin: 07/21/17 21:38 Dose: 400 mg Sertraline HCl (Zoloft) 100 mg PO HS [facility] Last Admin: 07/21/17 21:38 Dose: 100 mg Trazodone HCl (Desyrel) 150 mg PO HS [facility] Last Admin: 07/21/17 21:38 Dose: 150 mg - Labs Labs: 07/19/17 17:13 07/19/17 17:13 PT 10.8 SECONDS (9.7-12.2) 07/19/17 17:13 INR 1.0 07/19/17 17:13 APTT 32 SECONDS (21-34) 07/19/17 17:13 Assessment and Plan (1) COPD exacerbation Status: Acute (2) Pneumonia Status: Acute (3) Respiratory distress Status: Acute (4) Steroid-induced hyperglycemia Status: Acute (5) Thromboembolic pulmonary hypertension Status: Acute (6) Anxiety and depression Status: Chronic (7) Bipolar disorder Status: Chronic (8) Diabetes mellitus with neuropathy Status: Chronic (9) Diabetes mellitus, insulin dependent (IDDM), uncontrolled Status: Chronic (10) HTN (hypertension) Status: Chronic (11) Morbid obesity Status: Chronic
[2017-07-22] MEDS: (Novolog) Insulin Aspart, Recombinant 100 u/ml 10 ml vial SC SCH ×4 (08:22→21:30)
[2017-07-22] MEDS: MethylPREDNISolone 40 mg Vial IVP SCH ×2 (10:50→22:19)
[2017-07-22] MEDS: Enoxaparin 40 mg Syringe SC SCH (10:51)
[2017-07-22] MEDS: QUEtiapine 200 mg XR Tab PO SCH ×2 (10:51→22:00)
[2017-07-22] MEDS: Pantoprazole 20 mg EC Tab PO SCH (10:51)
[2017-07-22] MEDS: Lactobacillus Acidophilus 500 MU Cap PO SCH ×2 (10:51→17:41)
[2017-07-22] MEDS: guaiFENesin-Codeine 100-10mg/5ml Syrup (10ml) UD PO SCH ×3 (10:51→17:41)
[2017-07-22] MEDS: Oxycodone/Acetaminophen 5/325 mg Tab PO PRN ×2 (12:52→20:27)
--- NOTE | 2017-07-22 21:13 | CP.PCM.PN ---
Subjective - Date & Time of Evaluation Date of Evaluation: 07/22/17 Time of Evaluation: 21:11 - Subjective Subjective: Pulmonary Follow up Covering Dr. Rosado The patient was Seen/interviewed and examined by me at the bedside, Events reviewed 61 year old female with PMHx of COPD, CHF,Asthma, Anxiety, DM, and recurrent mucous plugs in tracheostomy, was brought to ED on 07/19 for shortness of breath. Patient's trachesotomy was suctioned ED by respiratory and found to have large amount of mucous. Patient OOB comfortably, NAD. Pt AAO x3. Alert, follows commands Patient states improved dyspnea, Denies chest pain. Continued on supplemental oxygen via Trach Patient denied fever or chills. Objective - Vital Signs/Intake and Output Vital Signs (last 24 hours): Temp Pulse Resp BP Pulse Ox 97.8 F 74 20 133/82 95 07/22/17 17:05 07/22/17 17:05 07/22/17 17:05 07/22/17 17:05 07/22/17 17:05 Intake and Output: 07/22/17 07/23/17 18:59 06:59 Intake Total 540 Output Total 800 Balance -260 - Medications Medications: Current Medications Albuterol/Ipratropium (Duoneb 3 Mg/0.5 Mg (3 Ml) Ud) 3 ml INH RQ6 [facility] Last Admin: 07/22/17 19:27 Dose: 3 ml Enoxaparin Sodium (Lovenox) 40 mg SC DAILY [facility] Last Admin: 07/22/17 10:51 Dose: 40 mg Gabapentin (Neurontin) 800 mg PO TID [facility] Last Admin: 07/22/17 17:41 Dose: 800 mg Guaifenesin/Codeine Phosphate (Guaifenesin/Codeine) 10 ml PO TID [facility] Last Admin: 07/22/17 17:41 Dose: 10 ml Piperacillin Sod/Tazobactam (Sod 3.375 gm/ Sodium Chloride) 100 mls @ 200 mls/ hr IVPB Q6H [facility] PRN Reason: Protocol Last Admin: 07/22/17 17:41 Dose: 200 mls/hr Insulin Aspart (Novolog) 0 unit SC ACHS [facility] PRN Reason: Protocol Last Admin: 07/22/17 12:48 Dose: 2 unit Insulin Glargine (Lantus) 30 unit SC HS [facility] Last Admin: 07/21/17 21:37 Dose: 30 units Lactobacillus Acidophilus (Bacid Acidophilus) 1 cap PO BID [facility] Last Admin: 07/22/17 17:41 Dose: 1 cap Methylprednisolone (Solu-Medrol) 40 mg IVP Q12 [facility] Last Admin: 07/22/17 10:50 Dose: 40 mg Montelukast Sodium (Singulair) 10 mg PO [facility] Last Admin: 07/21/17 21:38 Dose: 10 mg Oxycodone/Acetaminophen (Percocet 5/325 Mg Tab) 1 tab PO Q4H PRN PRN Reason: Pain, moderate (4-7) Stop: 07/22/17 23:26 Last Admin: 07/22/17 20:27 Dose: 1 tab Pantoprazole Sodium (Protonix Ec Tab) 20 mg PO DAILY [facility] Last Admin: 07/22/17 10:51 Dose: 20 mg Quetiapine Fumarate (Seroquel Xr) 400 mg PO Q12 [facility] Last Admin: 07/22/17 10:51 Dose: 400 mg Sertraline HCl (Zoloft) 100 mg PO [facility] Last Admin: 07/21/17 21:38 Dose: 100 mg Trazodone HCl (Desyrel) 150 mg PO [facility] Last Admin: 07/21/17 21:38 Dose: 150 mg - Labs Labs: 07/19/17 17:13 07/19/17 17:13 PT 10.8 SECONDS (9.7-12.2) 07/19/17 17:13 INR 1.0 07/19/17 17:13 APTT 32 SECONDS (21-34) 07/19/17 17:13 - Head Exam Head Exam: ATRAUMATIC, NORMAL INSPECTION - Eye Exam Eye Exam: EOMI, Normal appearance. absent: Conjunctival injection - ENT Exam ENT Exam: Mucous Membranes Moist - Neck Exam Neck Exam: Full ROM - Respiratory Exam Respiratory Exam: Clear to Ausculation Bilateral. absent: Accessory Muscle Use , Chest Wall Tenderness, Decreased Breath Sounds, Rhonchi, Wheezes - Cardiovascular Exam Cardiovascular Exam: REGULAR RHYTHM, RRR, +S1, +S2. absent: JVD - GI/Abdominal Exam GI & Abdominal Exam: Distended, Soft, Normal Bowel Sounds. absent: Firm, Guarding, Rigid - Back Exam Back Exam: absent: CVA tenderness (L), CVA tenderness (R) - Neurological Exam Neurological Exam: Alert, Awake, CN II-XII Intact, Motor Sensory Deficit, Normal Gait, Oriented x3 Assessment and Plan (1) Chr obstructive pulmonary disease w/ acute lower respiratory infxn Status: Acute (2) Respiratory distress Status: Acute (3) Mucus plugging of bronchi Status: Acute (4) COPD exacerbation Status: Acute (5) Dyspnea Status: Acute (6) Healthcare-associated pneumonia Status: Acute (7) Prophylactic measure Status: Acute
[2017-07-22] MEDS: (Lantus) Insulin Glargine, Recombinant SC SCH (22:19)
[2017-07-23] MEDS: Piperacillin/Tazobact 3.375 GM in Sodium Chloride 100 ML IVPB SCH ×5 (00:23→23:30)
[2017-07-23] MEDS: Albuterol-Ipratrop 3 mg / 0.5 (3 ml) UD INH SCH ×5 (02:11→19:25)
[2017-07-23 08:20] LABS: BASO % 0.2 % (0.0-2.0); EOS % 0.1 % (0.0-4.0); HEMOGLOBIN 12.3 g/dL (11.0-16.0); LYMPH # 1.1 K/uL (1.0-4.3); LYMPH % 9.4 % (20.0-40.0); MEAN CORPUSCULAR HEMOGLOBIN 27.9 pg (27.0-31.0); MEAN PLATELET VOLUME 8.2 fL (7.2-11.7); MONO # 0.6 K/uL (0.0-0.8); MONO % 4.7 % (0.0-10.0); NEUT % 85.6 % (50.0-75.0); PLATELET COUNT 176 K/uL (130-400); RBC 4.42 Mil/uL (3.80-5.20); RED CELL DISTRIBUTION WIDTH 15.5 % (11.5-14.5); WHITE BLOOD COUNT 11.7 K/uL (4.8-10.8)
[2017-07-23 08:25] LABS: BLOOD UREA NITROGEN 24 mg/dL (7-17); CALCIUM 9.4 mg/dl (8.6-10.4); GFR AFRICAN-AMERICAN > 60; GFR NON-AFRICAN AMERICAN > 60
[2017-07-23] MEDS: (Novolog) Insulin Aspart, Recombinant 100 u/ml 10 ml vial SC SCH ×4 (08:45→21:29)
[2017-07-23] MEDS: Oxycodone/Acetaminophen 5/325 mg Tab PO PRN ×2 (08:46→17:17)
[2017-07-23] MEDS ORDERED: Benzocaine/Menthol (Cepacol) Lozenge MT PRN (10:00)
[2017-07-23] MEDS: guaiFENesin-Codeine 100-10mg/5ml Syrup (10ml) UD PO SCH ×3 (10:15→17:20)
[2017-07-23] MEDS: Lactobacillus Acidophilus 500 MU Cap PO SCH ×2 (10:15→17:17)
[2017-07-23] MEDS: QUEtiapine 200 mg XR Tab PO SCH ×2 (10:15→21:24)
[2017-07-23] MEDS: Pantoprazole 20 mg EC Tab PO SCH (10:16)
[2017-07-23] MEDS: Enoxaparin 40 mg Syringe SC SCH (10:16)
[2017-07-23] MEDS: MethylPREDNISolone 40 mg Vial IVP SCH ×2 (10:16→21:22)
[2017-07-23 10:24] LABS: LYMPHOCYTE 7 % (20-40); MONOCYTE 7 % (0-10); NEUTROPHIL 86 % (50-75); PLATELET ESTIMATE NORMAL (NORMAL); TOTAL CELLS COUNTED 100
[2017-07-23 10:25] LABS: ANISOCYTOSIS SLIGHT; HYPOCHROMIC SLIGHT; POLYCHROMIC SLIGHT; TOXIC GRANULATION PRESENT
[2017-07-23] MEDS: (Lantus) Insulin Glargine, Recombinant SC SCH (21:21)
--- NOTE | 2017-07-23 22:23 | CP.PCM.PN ---
Subjective - Date & Time of Evaluation Date of Evaluation: 07/23/17 Time of Evaluation: 18:00 Objective - Vital Signs/Intake and Output Vital Signs (last 24 hours): Temp Pulse Resp BP Pulse Ox 98.8 F 71 22 158/73 H 96 07/23/17 16:00 07/23/17 16:29 07/23/17 16:00 07/23/17 16:00 07/23/17 16:00 - Medications Medications: Current Medications Albuterol/Ipratropium (Duoneb 3 Mg/0.5 Mg (3 Ml) Ud) 3 ml INH RQ6 [facility] Last Admin: 07/23/17 19:25 Dose: 3 ml Benzocaine/Menthol (Cepacol Sore Throat) 1 luca MT QID PRN PRN Reason: Sore Throat Last Admin: 07/23/17 10:14 Dose: 1 luca Enoxaparin Sodium (Lovenox) 40 mg SC DAILY [facility] Last Admin: 07/23/17 10:16 Dose: 40 mg Gabapentin (Neurontin) 800 mg PO TID [facility] Last Admin: 07/23/17 17:17 Dose: 800 mg Guaifenesin/Codeine Phosphate (Guaifenesin/Codeine) 10 ml PO TID [facility] Last Admin: 07/23/17 17:20 Dose: 10 ml Piperacillin Sod/Tazobactam (Sod 3.375 gm/ Sodium Chloride) 100 mls @ 200 mls/ hr IVPB Q6H [facility] PRN Reason: Protocol Last Admin: 07/23/17 17:23 Dose: 200 mls/hr Insulin Aspart (Novolog) 0 unit SC ACHS [facility] PRN Reason: Protocol Last Admin: 07/23/17 21:29 Dose: Not Given Insulin Glargine (Lantus) 30 unit SC HS [facility] Last Admin: 07/23/17 21:21 Dose: 30 units Lactobacillus Acidophilus (Bacid Acidophilus) 1 cap PO BID [facility] Last Admin: 07/23/17 17:17 Dose: 1 cap Methylprednisolone (Solu-Medrol) 40 mg IVP Q12 [facility] Last Admin: 07/23/17 21:22 Dose: 40 mg Montelukast Sodium (Singulair) 10 mg PO HS [facility] Last Admin: 07/23/17 21:24 Dose: 10 mg Oxycodone/Acetaminophen (Percocet 5/325 Mg Tab) 1 tab PO Q4H PRN PRN Reason: Pain, severe (8-10) Stop: 07/26/17 09:01 Last Admin: 07/23/17 17:17 Dose: 1 tab Pantoprazole Sodium (Protonix Ec Tab) 20 mg PO DAILY [facility] Last Admin: 07/23/17 10:16 Dose: 20 mg Quetiapine Fumarate (Seroquel Xr) 400 mg PO Q12 [facility] Last Admin: 07/23/17 21:24 Dose: 400 mg Sertraline HCl (Zoloft) 100 mg PO HS [facility] Last Admin: 07/23/17 21:24 Dose: 100 mg Trazodone HCl (Desyrel) 150 mg PO HS [facility] Last Admin: 07/23/17 21:24 Dose: 150 mg - Labs Labs: 07/23/17 07:51 07/23/17 07:51 PT 10.8 SECONDS (9.7-12.2) 07/19/17 17:13 INR 1.0 07/19/17 17:13 APTT 32 SECONDS (21-34) 07/19/17 17:13 Assessment and Plan (1) COPD exacerbation Status: Acute (2) Pneumonia Status: Acute (3) Respiratory distress Status: Acute (4) Steroid-induced hyperglycemia Status: Acute (5) Thromboembolic pulmonary hypertension Status: Acute (6) Anxiety and depression Status: Chronic (7) Bipolar disorder Status: Chronic (8) Diabetes mellitus with neuropathy Status: Chronic (9) Diabetes mellitus, insulin dependent (IDDM), uncontrolled Status: Chronic (10) HTN (hypertension) Status: Chronic (11) Morbid obesity Status: Chronic
[2017-07-24 00:36] VITALS: RESP 20
[2017-07-24] MEDS: Oxycodone/Acetaminophen 5/325 mg Tab PO PRN ×3 (00:48→18:58)
[2017-07-24] MEDS: Albuterol-Ipratrop 3 mg / 0.5 (3 ml) UD INH SCH ×4 (01:14→19:51)
[2017-07-24] MEDS: Piperacillin/Tazobact 3.375 GM in Sodium Chloride 100 ML IVPB SCH ×4 (06:00→23:30)
[2017-07-24] MEDS: (Novolog) Insulin Aspart, Recombinant 100 u/ml 10 ml vial SC SCH ×4 (08:34→22:22)
[2017-07-24] MEDS: Lactobacillus Acidophilus 500 MU Cap PO SCH ×2 (09:56→17:11)
[2017-07-24] MEDS: Pantoprazole 20 mg EC Tab PO SCH (09:56)
[2017-07-24] MEDS: QUEtiapine 200 mg XR Tab PO SCH ×2 (09:56→22:26)
[2017-07-24] MEDS: MethylPREDNISolone 40 mg Vial IVP SCH ×2 (09:56→22:00)
[2017-07-24] MEDS: guaiFENesin-Codeine 100-10mg/5ml Syrup (10ml) UD PO SCH ×3 (09:56→17:11)
[2017-07-24] MEDS: Enoxaparin 40 mg Syringe SC SCH (09:56)
[2017-07-24 10:59] LABS: HEMOGLOBIN 13.1 g/dL (11.0-16.0); MEAN CELL VOLUME 81.9 fL (81.0-99.0); MEAN CORPUSCULAR HEMOGLOBIN 27.2 pg (27.0-31.0); MEAN CORPUSCULAR HGB CONC 33.2 g/dL (33.0-37.0); MEAN PLATELET VOLUME 8.3 fL (7.2-11.7); RBC 4.82 Mil/uL (3.80-5.20); RED CELL DISTRIBUTION WIDTH 15.4 % (11.5-14.5); WHITE BLOOD COUNT 13.5 K/uL (4.8-10.8)
[2017-07-24 11:14] LABS: BLOOD UREA NITROGEN 22 mg/dL (7-17); GFR AFRICAN-AMERICAN > 60; GFR NON-AFRICAN AMERICAN 57
--- NOTE | 2017-07-24 14:59 | CP.PCM.PN ---
Subjective - Date & Time of Evaluation Date of Evaluation: 07/24/17 Time of Evaluation: 14:57 - Subjective Subjective: PT SEEN BY DR. SINGLETON THIS MORNING. PT CLEARED FOR D/C HOME TODAY. IN AGREEMENT. RX ABX, COUGH SYRUP, AND PREDNISON TAPER. DAUGHTER REQUESTING HOME CARE SERVICES, WHICH HAVE BEEN ARRANGED BY CM. PT TO F/U WITH DR. HUGGINS IN THE OFFICE IN 1 WEEK. NO FURTHER ORDERS. SW TO ARRANGE TRANSPORTATION HOME THIS AFTERNOON. -FOLLOW UP WITH DR. HUGGINS IN THE OFFICE IN 1 WEEK---CALL THE OFFICE TO MAKE YOUR APPOINTMENT. -CONTINUE TAKING HOME MEDICATIONS USUAL. -NEW PRESCRIPTIONS INCLUDE: 1) GUAIFENESIN (COUGH MEDICINE)---TAKE 10 ML 3 TIMES A DAY NEEDED FOR COUGH. 2) PREDNISONE (STEROID) TAPER DIRECTED---40 MG (4 TABLETS) BY MOUTH ONCE A DAY FOR 3 DAYS, THEN 30 MG (3 TABLETS) BY MOUTH ONCE A DAY FOR 3 DAYS, THEN 20 MG (2 TABLETS) BY MOUTH ONCE A DAY FOR 3 DAYS, THEN 10 MG (1 TABLET) BY MOUTH ONCE A DAY FOR 3 DAYS. 3) AZITHROMYCIN (ANTIBIOTIC)---TAKE EXACTLY PRESCRIBED. -YOUR PRESCRIPTIONS HAVE BEEN SENT TO YOUR PHARMACY; INCIDENT MANAGER OR HAVE THEM DELIVERED. -YOU HAVE BEEN REFERRED TO [facility] FOR HOME CARE SERVICES. THE COMPANY WILL CONTACT YOU REGARDING WHAT DAY AND TIME THEY WILL SEE YOU AT YOUR HOME FOR INITIAL EVALUATION. -FOR FURTHER QUESTIONS, CONTACT DR. HUGGINS'S OFFICE. Objective - Vital Signs/Intake and Output Vital Signs (last 24 hours): Temp Pulse Resp BP Pulse Ox 97.9 F 66 20 130/74 100 07/24/17 08:14 07/24/17 08:14 07/24/17 08:14 07/24/17 08:14 07/24/17 08:14 Intake and Output: 07/24/17 07/24/17 06:59 18:59 Intake Total 300 Output Total 600 Balance -300 - Medications Medications: Current Medications Albuterol/Ipratropium (Duoneb 3 Mg/0.5 Mg (3 Ml) Ud) 3 ml INH RQ6 [facility] Last Admin: 07/24/17 13:07 Dose: 3 ml Benzocaine/Menthol (Cepacol Sore Throat) 1 luca MT QID PRN PRN Reason: Sore Throat Last Admin: 07/23/17 10:14 Dose: 1 luca Enoxaparin Sodium (Lovenox) 40 mg SC DAILY [facility] Last Admin: 07/24/17 09:56 Dose: 40 mg Gabapentin (Neurontin) 800 mg PO TID [facility] Last Admin: 07/24/17 14:28 Dose: 800 mg Guaifenesin/Codeine Phosphate (Guaifenesin/Codeine) 10 ml PO TID [facility] Last Admin: 07/24/17 14:31 Dose: 10 ml Piperacillin Sod/Tazobactam (Sod 3.375 gm/ Sodium Chloride) 100 mls @ 200 mls/ hr IVPB Q6H [facility] PRN Reason: Protocol Last Admin: 07/24/17 12:23 Dose: 200 mls/hr Insulin Aspart (Novolog) 0 unit SC ACHS [facility] PRN Reason: Protocol Last Admin: 07/24/17 12:22 Dose: 2 unit Insulin Glargine (Lantus) 30 unit SC [facility] Last Admin: 07/23/17 21:21 Dose: 30 units Lactobacillus Acidophilus (Bacid Acidophilus) 1 cap PO BID [facility] Last Admin: 07/24/17 09:56 Dose: 1 cap Methylprednisolone (Solu-Medrol) 40 mg IVP Q12 [facility] Last Admin: 07/24/17 09:56 Dose: 40 mg Montelukast Sodium (Singulair) 10 mg PO [facility] Last Admin: 07/23/17 21:24 Dose: 10 mg Oxycodone/Acetaminophen (Percocet 5/325 Mg Tab) 1 tab PO Q4H PRN PRN Reason: Pain, severe (8-10) Stop: 07/26/17 09:01 Last Admin: 07/24/17 09:55 Dose: 1 tab Pantoprazole Sodium (Protonix Ec Tab) 20 mg PO DAILY [facility] Last Admin: 07/24/17 09:56 Dose: 20 mg Quetiapine Fumarate (Seroquel Xr) 400 mg PO Q12 [facility] Last Admin: 07/24/17 09:56 Dose: 400 mg Sertraline HCl (Zoloft) 100 mg PO [facility] Last Admin: 07/23/17 21:24 Dose: 100 mg Trazodone HCl (Desyrel) 150 mg PO HS [facility] Last Admin: 07/23/17 21:24 Dose: 150 mg - Labs Labs: 07/24/17 10:53 07/24/17 10:53 PT 10.8 SECONDS (9.7-12.2) 07/19/17 17:13 INR 1.0 07/19/17 17:13 APTT 32 SECONDS (21-34) 07/19/17 17:13
--- NOTE | 2017-07-24 15:22 | CP.PCM.PN ---
Subjective - Date & Time of Evaluation Date of Evaluation: 07/24/17 Time of Evaluation: 12:45 - Subjective Subjective: Patient seen and examined at bedside. Patient was sitting at the edge of bed in no acute distress. Patient states she is feeling better. She still has shortness of breath that comes and goes. She also complains of a cough. She states she sometimes has throat tightness but it resolves. Assessment/Plan: 1. Tracheobronchitis - WBC uptrending, 07/24: 13.5 - Continue Duoneb - Continue Solumedrol - Continue Singulair - Continue Zosyn - Continue suctioning tracheostomy 2. Anxiety - Management per primary team 3. CHF - Management per primary team Objective - Vital Signs/Intake and Output Vital Signs (last 24 hours): Temp Pulse Resp BP Pulse Ox 97.9 F 86 20 130/74 100 07/24/17 08:14 07/24/17 12:04 07/24/17 08:14 07/24/17 08:14 07/24/17 08:14 Intake and Output: 07/24/17 07/24/17 06:59 18:59 Intake Total 300 Output Total 600 Balance -300 - Medications Medications: Current Medications Albuterol/Ipratropium (Duoneb 3 Mg/0.5 Mg (3 Ml) Ud) 3 ml INH RQ6 [facility] Last Admin: 07/24/17 13:07 Dose: 3 ml Benzocaine/Menthol (Cepacol Sore Throat) 1 luca MT QID PRN PRN Reason: Sore Throat Last Admin: 07/23/17 10:14 Dose: 1 luca Enoxaparin Sodium (Lovenox) 40 mg SC DAILY [facility] Last Admin: 07/24/17 09:56 Dose: 40 mg Gabapentin (Neurontin) 800 mg PO TID [facility] Last Admin: 07/24/17 14:28 Dose: 800 mg Guaifenesin/Codeine Phosphate (Guaifenesin/Codeine) 10 ml PO TID [facility] Last Admin: 07/24/17 14:31 Dose: 10 ml Piperacillin Sod/Tazobactam (Sod 3.375 gm/ Sodium Chloride) 100 mls @ 200 mls/ hr IVPB Q6H [facility] PRN Reason: Protocol Last Admin: 07/24/17 12:23 Dose: 200 mls/hr Insulin Aspart (Novolog) 0 unit SC [facility] PRN Reason: Protocol Last Admin: 07/24/17 12:22 Dose: 2 unit Insulin Glargine (Lantus) 30 unit SC [facility] Last Admin: 07/23/17 21:21 Dose: 30 units Lactobacillus Acidophilus (Bacid Acidophilus) 1 cap PO BID [facility] Last Admin: 07/24/17 09:56 Dose: 1 cap Methylprednisolone (Solu-Medrol) 40 mg IVP Q12 [facility] Last Admin: 07/24/17 09:56 Dose: 40 mg Montelukast Sodium (Singulair) 10 mg PO HS [facility] Last Admin: 07/23/17 21:24 Dose: 10 mg Oxycodone/Acetaminophen (Percocet 5/325 Mg Tab) 1 tab PO Q4H PRN PRN Reason: Pain, severe (8-10) Stop: 07/26/17 09:01 Last Admin: 07/24/17 09:55 Dose: 1 tab Pantoprazole Sodium (Protonix Ec Tab) 20 mg PO DAILY [facility] Last Admin: 07/24/17 09:56 Dose: 20 mg Quetiapine Fumarate (Seroquel Xr) 400 mg PO Q12 [facility] Last Admin: 07/24/17 09:56 Dose: 400 mg Sertraline HCl (Zoloft) 100 mg PO [facility] Last Admin: 07/23/17 21:24 Dose: 100 mg Trazodone HCl (Desyrel) 150 mg PO [facility] Last Admin: 07/23/17 21:24 Dose: 150 mg - Labs Labs: 07/24/17 10:53 07/24/17 10:53 PT 10.8 SECONDS (9.7-12.2) 07/19/17 17:13 INR 1.0 07/19/17 17:13 APTT 32 SECONDS (21-34) 07/19/17 17:13
[2017-07-24] MEDS: (Lantus) Insulin Glargine, Recombinant SC SCH (22:24)
--- NOTE | 2017-07-24 22:56 | CP.PCM.PN ---
Subjective - Date & Time of Evaluation Date of Evaluation: 07/24/17 Time of Evaluation: 19:00 - Subjective Subjective: PT SEEN AND EXAMINED TODAY Objective - Vital Signs/Intake and Output Vital Signs (last 24 hours): Temp Pulse Resp BP Pulse Ox 98.4 F 73 20 135/75 97 07/24/17 15:30 07/24/17 15:30 07/24/17 15:30 07/24/17 15:30 07/24/17 15:30 - Medications Medications: Current Medications Albuterol/Ipratropium (Duoneb 3 Mg/0.5 Mg (3 Ml) Ud) 3 ml INH RQ6 [facility] Last Admin: 07/24/17 19:51 Dose: 3 ml Benzocaine/Menthol (Cepacol Sore Throat) 1 luca MT QID PRN PRN Reason: Sore Throat Last Admin: 07/23/17 10:14 Dose: 1 luca Enoxaparin Sodium (Lovenox) 40 mg SC DAILY [facility] Last Admin: 07/24/17 09:56 Dose: 40 mg Gabapentin (Neurontin) 800 mg PO TID [facility] Last Admin: 07/24/17 17:11 Dose: 800 mg Guaifenesin/Codeine Phosphate (Guaifenesin/Codeine) 10 ml PO TID [facility] Last Admin: 07/24/17 17:11 Dose: 10 ml Piperacillin Sod/Tazobactam (Sod 3.375 gm/ Sodium Chloride) 100 mls @ 200 mls/ hr IVPB Q6H [facility] PRN Reason: Protocol Last Admin: 07/24/17 12:23 Dose: 200 mls/hr Insulin Aspart (Novolog) 0 unit SC ACHS [facility] PRN Reason: Protocol Last Admin: 07/24/17 22:22 Dose: Not Given Insulin Glargine (Lantus) 30 unit SC [facility] Last Admin: 07/24/17 22:24 Dose: 30 units Lactobacillus Acidophilus (Bacid Acidophilus) 1 cap PO BID [facility] Last Admin: 07/24/17 17:11 Dose: 1 cap Methylprednisolone (Solu-Medrol) 40 mg IVP Q12 [facility] Last Admin: 07/24/17 09:56 Dose: 40 mg Montelukast Sodium (Singulair) 10 mg PO [facility] Last Admin: 07/24/17 22:25 Dose: 10 mg Oxycodone/Acetaminophen (Percocet 5/325 Mg Tab) 1 tab PO Q4H PRN PRN Reason: Pain, severe (8-10) Stop: 07/26/17 09:01 Last Admin: 07/24/17 18:58 Dose: 1 tab Pantoprazole Sodium (Protonix Ec Tab) 20 mg PO DAILY [facility] Last Admin: 07/24/17 09:56 Dose: 20 mg Quetiapine Fumarate (Seroquel Xr) 400 mg PO Q12 [facility] Last Admin: 07/24/17 22:26 Dose: 400 mg Sertraline HCl (Zoloft) 100 mg PO HS [facility] Last Admin: 07/24/17 22:25 Dose: 100 mg Trazodone HCl (Desyrel) 150 mg PO HS [facility] Last Admin: 07/24/17 22:24 Dose: 150 mg - Labs Labs: 07/24/17 10:53 07/24/17 10:53 PT 10.8 SECONDS (9.7-12.2) 07/19/17 17:13 INR 1.0 07/19/17 17:13 APTT 32 SECONDS (21-34) 07/19/17 17:13 Assessment and Plan (1) COPD exacerbation Status: Acute (2) Pneumonia Status: Acute (3) Respiratory distress Status: Acute (4) Steroid-induced hyperglycemia Status: Acute (5) Thromboembolic pulmonary hypertension Status: Acute (6) Anxiety and depression Status: Chronic (7) Bipolar disorder Status: Chronic (8) Diabetes mellitus with neuropathy Status: Chronic (9) Diabetes mellitus, insulin dependent (IDDM), uncontrolled Status: Chronic (10) HTN (hypertension) Status: Chronic (11) Morbid obesity Status: Chronic
[2017-07-25] MEDS: Albuterol-Ipratrop 3 mg / 0.5 (3 ml) UD INH SCH (01:20)
[2017-07-25] MEDS: Piperacillin/Tazobact 3.375 GM in Sodium Chloride 100 ML IVPB SCH (05:41)
[2017-07-25 08:17] VITALS: BP 113/64; PULSE 80; TEMP 98; O2SAT 96
[2017-07-25] MEDS: (Novolog) Insulin Aspart, Recombinant 100 u/ml 10 ml vial SC SCH (08:39)
[2017-07-25] MEDS: Pantoprazole 20 mg EC Tab PO SCH (10:38)
[2017-07-25] MEDS: Lactobacillus Acidophilus 500 MU Cap PO SCH (10:38)
[2017-07-25] MEDS: QUEtiapine 200 mg XR Tab PO SCH (10:38)
[2017-07-25] MEDS: guaiFENesin-Codeine 100-10mg/5ml Syrup (10ml) UD PO SCH (10:39)
[2017-07-25] MEDS: Enoxaparin 40 mg Syringe SC SCH (10:40)
[2017-07-25] MEDS: MethylPREDNISolone 40 mg Vial IVP SCH (10:42)
== END 2017-07-25 11:06 | disposition home or self-care (01) | DRG 541 ==
LOC: C.ER 17:03 → C.9E 18:06 → C.6T 20:29
PROVIDERS: ADMIT Internal Medicine; ATTEND Internal Medicine
DX: J95.03 Malfunction of tracheostomy stoma (principal); J18.9 Pneumonia, unspecified organism; I11.0 Hypertensive heart disease with heart failure; I50.9 Heart failure, unspecified; J44.0 Chronic obstructive pulmonary disease with (acute) lower respiratory infection; J44.1 Chronic obstructive pulmonary disease with (acute) exacerbation; E10.40 Type 1 diabetes mellitus with diabetic neuropathy, unspecified; T17.490A Other foreign object in trachea causing asphyxiation, initial encounter; E66.01 Morbid (severe) obesity due to excess calories; Z68.43 Body mass index [BMI] 50.0-59.9, adult; F31.9 Bipolar disorder, unspecified; F41.9 Anxiety disorder, unspecified; G47.30 Sleep apnea, unspecified; I27.20 Pulmonary hypertension, unspecified; E10.65 Type 1 diabetes mellitus with hyperglycemia; T38.0X5A Adverse effect of glucocorticoids and synthetic analogues, initial encounter; Y83.3 Surgical operation with formation of external stoma as the cause of abnormal reaction of the patient, or of later complication, without mention of misadventure at the time of the procedure

== ENCOUNTER 2017-09-20 14:21 | Inpatient (IN) | payer OTHER ==
[2017-09-20 14:22] VITALS: BMI 45.6
--- NOTE | 2017-09-20 14:28 | C.PDOC ---
History Of Present Illness 61 y/o female c/o recurrent profuse mucous discharge coming from tracheostomy for the past 2-3 days. Discharge is described as foul smelling with dark color. Patient also complains of sob, chest congestion, and malaise. Patient denies fever, chills, chest pain, nausea, vomiting, and other associated symptoms. Of note, patient information is limited due to clinical condition. Dry Cell Tester: Dr. Rosado PMHx of COPD, CHF,Asthma, Anxiety, DM, and recurrent mucous plugs in tracheostomy, TRACHEOBRONCHITIS Time Seen by Provider: 09/20/17 14:26 History Per: Patient History/Exam Limitations: clinical condition Onset/Duration Of Symptoms: Days Current Symptoms Are (Timing): Still Present Associated Symptoms: denies: Fever, Chills, Chest Pain Past Medical History Reviewed: Historical Data, Nursing Documentation, Vital Signs Vital Signs: Last Vital Signs Temp 98.8 F 09/20/17 14:35 Pulse 103 H 09/20/17 14:35 Resp 26 H 09/20/17 14:51 BP 144/74 09/20/17 14:35 Pulse Ox 95 09/20/17 16:04 - Medical History PMH: Anxiety, Asthma, Bipolar Disorder, Bronchitis, CHF, COPD ([place],), Depression, Emphysema, HTN, Pneumonia, Seizures, Sleep Apnea Denies: Arthritis, HIV, Hypercholesterolemia, Hypothyroidism, Chronic Kidney Disease, Rheumatoid Arthritis, Sexually Transmitted Disease Surgical History: Appendectomy, Cholecystectomy - [facility] Procedures ASSISTANCE WITH RESPIRATORY VENTILATION, <24 HRS, CPAP (03/14/16) CENTRAL VENOUS CATHETER PLACEMENT WITH GUIDANCE (10/24/14) CHANGE TRACHEOSTOMY DEVICE IN TRACHEA, EXTERNAL APPROACH (07/03/17) CONTINUOUS INVASIVE MECHANICAL VENTILATION <96 CONSEC HRS (03/07/14) ENTERAL INFUSION OF CONCENTRATED NUT. SUBSTANCES (09/17/12) INSERT ENDOTRACHEAL TUBE (09/17/12) INSERTION OF ENDOTRACHEAL AIRWAY INTO TRACHEA, VIA OPENING (06/12/17) INSERTION OF INFUSION DEV INTO SUP VENA CAVA, PERC APPROACH (04/27/17) INTRODUCE OF OTH THERAP SUBST INTO RESP TRACT, VIA OPENING (05/03/15) INTRODUCTION OF NUTRITIONAL INTO UP GI, VIA OPENING (06/12/17) NEBULIZER THERAPY (09/17/12) REMOVAL OF TRACHEOSTOMY DEVICE FROM TRACHEA, PLUMBING DESIGNER APPROACH (06/12/17) RESPIRATORY VENTILATION, 24-96 CONSECUTIVE HOURS (06/12/17) RESPIRATORY VENTILATION, GREATER THAN 96 CONSECUTIVE HOURS (02/27/17) Family History: States: No Known Family Hx - Social History Hx Tobacco Use: No Hx Alcohol Use: No Hx Substance Use: No - Immunization History Hx Tetanus Toxoid Vaccination: No Hx Influenza Vaccination: No Hx Pneumococcal Vaccination: No Review Of Systems Except As Marked, All Systems Reviewed And Found Negative. Constitutional: Positive for: Malaise. Negative for: Fever, Chills Cardiovascular: Positive for: Other (chest congestion). Negative for: Chest Pain Respiratory: Positive for: Shortness of Breath Gastrointestinal: Negative for: Nausea, Vomiting Neurological: Negative for: Weakness, Numbness Physical Exam - Physical Exam Appears: In Acute Distress (moderate respiratory distress) Skin: Normal Color Head: Atraumatic, Normacephalic Eye(s): bilateral: Normal Inspection Chest: Symmetrical Cardiovascular: Rhythm Regular Respiratory: Other (active coughing with chest congestion, s/p trach suction by respiratory with moderate output) Gastrointestinal/Abdominal: Soft, No Tenderness, No Distention Extremity: Bilateral: Atraumatic, Normal Color And Temperature, Normal ROM Pulses: Left Dorsalis Pedis: Normal, Right Dorsalis Pedis: Normal Neurological/Psych: Oriented x3 Gait: Steady ED Course And Treatment - Laboratory Results Result Diagrams: 09/20/17 14:59 09/20/17 14:59 ECG: Interpreted By [place] ECG Rhythm: Sinus Tachycardia ECG Interpretation: Normal Rate From EC O2 Sat by Pulse Oximetry: 95 (RA) Pulse Ox Interpretation: Normal - Radiology CXR: Interpreted by [facility] CXR Interpretation: Yes: Infiltrates (LLL) Progress - Re-Evaluation Re-evaluation Note: 09/20/17 15:54 EXAM UNCH PRIOR. VSS NARD D/W DR ROSADO STATES HAS CHRONIC L SIDED. FREQ PRIOR VISITS FOR SAME COMPLAINT D/W DR HUGGINS WILL ADMIT - Data Reviewed Data Reviewed: Lab, Diagnostic imaging, EKG, Old records Medical Decision Making Medical Decision Making: Impression: Moderate chest congestion, Cough, Recurrent mucous plugs in tracheostomy Plan: * EKG * comp metabolic panel * CBC with differential * chest XR * Duoneb * avelox * zithromax * blood culture * sputum culture Disposition Counseled Patient/Family Regarding: Studies Performed, Diagnosis - Disposition Disposition: HOSPITALIZED Disposition Time: 15:57 Condition: STABLE - POA Present On Arrival: Poor Glycemic Control - Clinical Impression Clinical Impression: Tracheostomy dependence, Mucus plugging of bronchi, Dyspnea - PA / ED MANAGER / Resident Statement MD/DO has reviewed & agrees with the documentation as recorded. - Scribe Statement The provider has reviewed the documentation as recorded by the Michelae Lefty Cardoso Provider Attestation: All medical record entries made by the Antonietta were at my direction and personally dictated by me. I have reviewed the chart and agree that the record accurately reflects my personal performance of the history, physical exam, medical decision making, and the department course for this patient. I have also personally directed, reviewed, and agree with the discharge instructions and disposition.
[2017-09-20 15:03] LABS: BASO # 0.1 K/uL (0.0-0.2); BASO % 0.8 % (0.0-2.0); EOS # 0.2 K/uL (0.0-0.7); EOS % 1.2 % (0.0-4.0); HEMOGLOBIN 12.3 g/dL (11.0-16.0); LYMPH # 2.3 K/uL (1.0-4.3); LYMPH % 18.4 % (20.0-40.0); MEAN CORPUSCULAR HEMOGLOBIN 26.8 pg (27.0-31.0); MEAN CORPUSCULAR HGB CONC 33.5 g/dL (33.0-37.0); MEAN PLATELET VOLUME 8.6 fL (7.2-11.7); MONO # 0.9 K/uL (0.0-0.8); MONO % 7.1 % (0.0-10.0); NEUT # 9.1 K/uL (1.8-7.0); NEUT % 72.5 % (50.0-75.0); RBC 4.58 Mil/uL (3.80-5.20); RED CELL DISTRIBUTION WIDTH 14.6 % (11.5-14.5); WHITE BLOOD COUNT 12.6 K/uL (4.8-10.8)
[2017-09-20] MEDS ORDERED: Moxifloxacin IV 400mg/250ml NS 400 MG/250 ML BAG IV STA (15:10)
[2017-09-20 15:14] LABS: CALCIUM 9.5 mg/dl (8.6-10.4); GFR AFRICAN-AMERICAN > 60; GFR NON-AFRICAN AMERICAN > 60
[2017-09-20] MEDS ORDERED: Azithromycin 500 MG in Sodium Chloride 0.9% 250 ML IVPB STA (15:16)
[2017-09-20] MEDS ORDERED: Albuterol-Ipratrop 3 mg / 0.5 (3 ml) UD ONE (15:20)
[2017-09-20 15:31] LABS: ALB/GLOB RATIO 0.9 (1.0-2.1); ALBUMIN 4.4 g/dL (3.5-5.0); ALT/SGPT 12 U/L (9-52); AST/SGOT 35 U/L (14-36); BLOOD UREA NITROGEN 18 mg/dL (7-17)
[2017-09-20] MEDS: Albuterol-Ipratrop 3 mg / 0.5 (3 ml) UD IH SCH ×2 (15:31→16:53)
--- NOTE | 2017-09-20 16:11 | RAD ---
Date of service: 09/20/2017 PROCEDURE: CHEST RADIOGRAPH, 1 VIEW HISTORY: Pneumonia COMPARISON: Chest radiograph dated 07/19/2017 FINDINGS: LUNGS: Questionable left basilar infiltrate. PLEURA: No pneumothorax or pleural fluid seen. CARDIOVASCULAR: Atherosclerotic aortic calcifications. Cardiomediastinal silhouette stably prominent. OSSEOUS STRUCTURES: Unchanged. VISUALIZED UPPER ABDOMEN: Normal. OTHER FINDINGS: Tracheostomy, unchanged. IMPRESSION: Questionable left basilar infiltrate.
[2017-09-20] MEDS: (Novolog) Insulin Aspart, Recombinant 100 u/ml 10 ml vial SC SCH ×2 (16:37→22:01)
[2017-09-20] MEDS ORDERED: Moxifloxacin IV 400mg/250ml NS 400 MG/250 ML BAG IVPB SCH (16:45)
[2017-09-20] MEDS ORDERED: guaiFENesin 100 mg/5 ml Syrup UD ONE ×2 (17:08→17:09)
[2017-09-20] MEDS: guaiFENesin 200 mg/10 ml Syrup UD PO PRN (17:08)
[2017-09-20] MEDS: Lactobacillus Acidophilus 500 MU Cap PO SCH (18:18)
[2017-09-20] MEDS ORDERED: Oxycodone/Acetaminophen 5/325 mg Tab ONE (18:22)
[2017-09-20] MEDS: Oxycodone/Acetaminophen 5/325 mg Tab PO PRN (18:30)
[2017-09-20] MEDS ORDERED: Etomidate 20 mg/10ml Inj IV ONE (19:00)
[2017-09-20] MEDS ORDERED: Sod Polystyrene Sulf 15 gm/60 ml Susp PO ONE (19:58)
[2017-09-20] MEDS ORDERED: Sod Polystyrene Sulf 15 gm/60 ml Susp ONE (20:05)
[2017-09-20] MEDS: (Lantus) Insulin Glargine, Recombinant SC SCH (22:03)
[2017-09-20] MEDS: QUEtiapine 200 mg XR Tab PO SCH (22:52)
--- NOTE | 2017-09-20 23:23 | CP.PCM.HP ---
History of Present Illness - History of Present Illness History of Present Illness: CC: cough, congestion, shortness of breath HPI: 61 y/o morbidly obese female with h/o chronic obstructive asthama , chronic tracheostomy, DM,c/o recurrent profuse mucous discharge coming from tracheostomy for the past 2-3 days. Discharge is described as foul smelling with dark color. Patient also complains of sob, chest congestion, and malaise. Patient denies fever, chills, chest pain, nausea, vomiting, and other associated symptoms. Of note, patient information is limited due to clinical condition. Present on Admission - Present on Admission Any Indicators Present on Admission: Yes Review of Systems - Review of Systems Systems not reviewed;Unavailable: Acuity of Condition - Constitutional Constitutional: Fatigue, Lethargy, Malaise, Weakness - EENT Eyes: absent: As Per HPI, Blind Spots, Blurred Vision, Change in Vision, Decreased Night Vision, Diplopia, Discharge, Dry Eye, Exophthalmos, Floaters, Irritation, Itchy Eyes, Loss of Peripheral Vision, Pain, Photophobia, Requires Corrective Lenses, Sees Flashes, Spots in Vision, Tunnel Vision, Other Visual Disturbances, Loss of Vision, Other Nose/Mouth/Throat: absent: As Per HPI, Epistaxis, Nasal Congestion, Nasal Discharge, Nasal Obstruction, Nasal Trauma, Nose Pain, Post Nasal Drip, Sinus Pain, Sinus Pressure, Bleeding Gums, Change in Voice, Dental Pain, Dry Mouth, Dysphagia, Halitosis, Hoarsness, Lip Swelling, Mouth Lesions, Mouth Pain, Odynophagia, Sore Throat, Throat Swelling, Tongue Swelling, Facial Pain, Neck Pain, Neck Mass, Other - Cardiovascular Cardiovascular: Dyspnea - Respiratory Respiratory: Cough, Dyspnea, Wheezing, Chest Congestion, Change in Mucous Color , Pain with Coughing - Gastrointestinal Gastrointestinal: absent: As Per HPI, Abdominal Pain, Belching, Bloating, Change in Bowel Habits, Change in Stool Character, Coffee Ground Emesis, Constipation, Cramping, Diarrhea, Dyspepsia, Dysphagia, Early Satiety, Excessive Flatus, Fecal Incontinence, Heartburn, Hematemesis, Hematochezia, Loose Stools, Melena, Nausea, Odynophagia, Temesmus, Vomiting, Other - Genitourinary Genitourinary: absent: As Per HPI, Change in Urinary Stream, Difficulty Urinating, Dysuria, Flank Pain, Hematuria, Pyuria, Nocturia, Urinary Incontinence, Urinary Frequency, Urinary Hesitance, Urinary Urgency, Voiding Freq/Small Amts, Freq UTI, Hx Renal/Bladder Calculi, Hx /Renal Surgery, Bladder Distension, Other Past Patient History - Infectious Disease Hx of Infectious Diseases: None - Tetanus Immunizations Tetanus Immunization: Unknown - Past Medical History & Family History Past Medical History?: Yes - Past Social History Smoking Status: Never Smoked - CARDIAC Hx Congestive Heart Failure: Yes Hx Hypercholesterolemia: No Hx Hypertension: Yes - PULMONARY Hx Asthma: Yes Hx Bronchitis: Yes Hx Chronic Obstructive Pulmonary Disease (COPD): Yes ([place],) Hx Emphysema: Yes Hx Pneumonia: Yes Hx Sleep Apnea: Yes - NEUROLOGICAL Hx Seizures: Yes - HEENT Hx HEENT Problems: Yes Hx Cataracts: Yes - RENAL Hx Chronic Kidney Disease: No - ENDOCRINE/METABOLIC Hx Hypothyroidism: No - HEMATOLOGICAL/ONCOLOGICAL Hx Human Immunodeficiency Virus (HIV): No - INTEGUMENTARY Hx Dermatological Problems: No - MUSCULOSKELETAL/RHEUMATOLOGICAL Hx Arthritis: No Hx Rheumatoid Arthritis: No - GASTROINTESTINAL Hx Gastrointestinal Disorders: Yes Other/Comment: cholecystectomy - GENITOURINARY/GYNECOLOGICAL Hx Sexually Transmitted Disorders: No - PSYCHIATRIC Hx Anxiety: Yes Hx Bipolar Disorder: Yes Hx Depression: Yes Hx Substance Use: No - SURGICAL HISTORY Hx Appendectomy: Yes Hx Cholecystectomy: Yes - ANESTHESIA Hx Anesthesia: Yes Hx Anesthesia Reactions: No Hx Malignant Hyperthermia: No Meds Allergies/Adverse Reactions: Allergies Allergy/AdvReac Type Severity Reaction Status Date / Time aspirin Allergy ANAPHYLAXIS Verified 07/19/17 17:10 ceftriaxone sodium Allergy ANAPHYLAXIS Verified 07/19/17 17:10 [From Rocephin] ibuprofen [From Motrin] Allergy ANAPHYLAXIS Verified 07/19/17 17:10 iodine Allergy ANAPHYLAXIS Verified 07/19/17 17:10 raspberry Allergy ANAPHYLAXIS Verified 07/19/17 17:10 Physical Exam - Constitutional Appears: No Acute Distress - Head Exam Head Exam: ATRAUMATIC, NORMAL INSPECTION, NORMOCEPHALIC - Eye Exam Eye Exam: EOMI, Normal appearance, PERRL Pupil Exam: NORMAL ACCOMODATION, PERRL - ENT Exam ENT Exam: Mucous Membranes Moist, Normal Exam - Respiratory Exam Respiratory Exam: Decreased Breath Sounds, Wheezes - Cardiovascular Exam Cardiovascular Exam: REGULAR RHYTHM - GI/Abdominal Exam GI & Abdominal Exam: Normal Bowel Sounds, Soft. absent: Tenderness - Psychiatric Exam Psychiatric exam: Anxious - Skin Skin Exam: Dry, Intact, Normal Color, Warm Results - Vital Signs Recent Vital Signs: Last Vital Signs Temp 98.8 F 09/20/17 20:15 Pulse 87 09/20/17 20:15 Resp 22 09/20/17 20:15 BP 154/81 H 09/20/17 20:15 Pulse Ox 94 L 09/20/17 20:15 - Labs Result Diagrams: 09/20/17 14:59 09/20/17 14:59 Labs: Laboratory Results - last 24 hr 09/20/17 09/20/17 14:59 14:59 WBC 12.6 H RBC 4.58 Hgb 12.3 Hct 36.6 MCV 80.0 L MCH 26.8 L MCHC 33.5 RDW 14.6 H Plt Count 178 MPV 8.6 Neut % (Auto) 72.5 Lymph % (Auto) 18.4 L [place] % (Auto) 7.1 Eos % (Auto) 1.2 Baso % (Auto) 0.8 Neut # (Auto) 9.1 H Lymph # (Auto) 2.3 [place] # (Auto) 0.9 H Eos # (Auto) 0.2 Baso # (Auto) 0.1 Sodium 142 Potassium 6.0 H Chloride 104 Carbon Dioxide 25 Anion Gap 18 BUN 18 H Creatinine 0.9 Est GFR ( Amer) > 60 Est GFR (Non-Af Amer) > 60 Random Glucose 251 H Calcium 9.5 Total Bilirubin 0.9 AST 35 ALT 12 Alkaline Phosphatase 175 H Total Protein 9.0 H Albumin 4.4 Globulin 4.7 H Albumin/Globulin Ratio 0.9 L Assessment & Plan (1) Dyspnea Status: Acute (2) Mucus plugging of bronchi Status: Acute (3) Tracheostomy dependence Status: Acute (4) COPD (chronic obstructive pulmonary disease) Status: Acute (5) Respiratory distress Status: Acute (6) Tracheobronchitis Status: Acute (7) Diabetes mellitus Status: Chronic (8) HTN (hypertension) Status: Chronic (9) Morbid obesity Status: Chronic
[2017-09-21] MEDS: Albuterol-Ipratrop 3 mg / 0.5 (3 ml) UD INH SCH ×2 (02:35→20:08)
[2017-09-21] MEDS: guaiFENesin 200 mg/10 ml Syrup UD PO PRN (05:25)
[2017-09-21] MEDS: Oxycodone/Acetaminophen 5/325 mg Tab PO PRN ×3 (05:25→16:17)
[2017-09-21] MEDS: (Novolog) Insulin Aspart, Recombinant 100 u/ml 10 ml vial SC SCH ×4 (08:02→21:34)
[2017-09-21] MEDS: Sod Polystyrene Sulf 15 gm/60 ml Susp PO ONE ×2 (08:30→12:35)
[2017-09-21] MEDS: Pantoprazole 20 mg EC Tab PO SCH (10:15)
[2017-09-21] MEDS: Lactobacillus Acidophilus 500 MU Cap PO SCH ×2 (10:16→17:25)
[2017-09-21] MEDS: QUEtiapine 200 mg XR Tab PO SCH ×2 (10:16→21:52)
[2017-09-21] MEDS: Enoxaparin 40 mg Syringe SC SCH (10:21)
[2017-09-21] MEDS ORDERED: Clindamycin 600mg/50ml NS 600 MG/50 ML BAG IVPB SCH (11:00)
[2017-09-21 11:47] LABS: BASO % 0.4 % (0.0-2.0); EOS # 0.3 K/uL (0.0-0.7); EOS % 2.7 % (0.0-4.0); HEMOGLOBIN 11.6 g/dL (11.0-16.0); LYMPH # 2.5 K/uL (1.0-4.3); MEAN CELL VOLUME 80.1 fL (81.0-99.0); MEAN CORPUSCULAR HEMOGLOBIN 26.6 pg (27.0-31.0); MEAN CORPUSCULAR HGB CONC 33.2 g/dL (33.0-37.0); MEAN PLATELET VOLUME 8.2 fL (7.2-11.7); MONO % 9.8 % (0.0-10.0); NEUT # 6.7 K/uL (1.8-7.0); NEUT % 63.1 % (50.0-75.0); RBC 4.37 Mil/uL (3.80-5.20); RED CELL DISTRIBUTION WIDTH 14.7 % (11.5-14.5); WHITE BLOOD COUNT 10.6 K/uL (4.8-10.8)
--- NOTE | 2017-09-21 11:51 | CP.PCM.CON ---
History of Present Illness - History of Present Illness History of Present Illness: reason for consultation: copious secretions from trach and shortness of breath 61-year-old female with multiple admissions in the past for tracheobronchitis/ pneumonia who presented to emergency room complaining cough shortness of breath and copious amount off muco purulent discharge from the tracheostomy. denies fever chills, denies chest pain Review of Systems - Review of Systems All systems: reviewed and no additional remarkable complaints except (shortness of breath) Past Patient History - Infectious Disease Hx of Infectious Diseases: None - Tetanus Immunizations Tetanus Immunization: Unknown - Past Medical History & Family History Past Medical History?: Yes - Past Social History Smoking Status: Never Smoked - CARDIAC Hx Congestive Heart Failure: Yes Hx Hypercholesterolemia: No Hx Hypertension: Yes - PULMONARY Hx Asthma: Yes Hx Bronchitis: Yes Hx Chronic Obstructive Pulmonary Disease (COPD): Yes ([place],) Hx Emphysema: Yes Hx Pneumonia: Yes Hx Sleep Apnea: Yes - NEUROLOGICAL Hx Seizures: Yes - HEENT Hx HEENT Problems: Yes Hx Cataracts: Yes - RENAL Hx Chronic Kidney Disease: No - ENDOCRINE/METABOLIC Hx Hypothyroidism: No - HEMATOLOGICAL/ONCOLOGICAL Hx Human Immunodeficiency Virus (HIV): No - INTEGUMENTARY Hx Dermatological Problems: No - MUSCULOSKELETAL/RHEUMATOLOGICAL Hx Arthritis: No Hx Rheumatoid Arthritis: No - GASTROINTESTINAL Hx Gastrointestinal Disorders: Yes Other/Comment: cholecystectomy - GENITOURINARY/GYNECOLOGICAL Hx Sexually Transmitted Disorders: No - PSYCHIATRIC Hx Anxiety: Yes Hx Bipolar Disorder: Yes Hx Depression: Yes Hx Substance Use: No - SURGICAL HISTORY Hx Appendectomy: Yes Hx Cholecystectomy: Yes - ANESTHESIA Hx Anesthesia: Yes Hx Anesthesia Reactions: No Hx Malignant Hyperthermia: No Meds Allergies/Adverse Reactions: Allergies Allergy/AdvReac Type Severity Reaction Status Date / Time aspirin Allergy ANAPHYLAXIS Verified 07/19/17 17:10 ceftriaxone sodium Allergy ANAPHYLAXIS Verified 07/19/17 17:10 [From Rocephin] ibuprofen [From Motrin] Allergy ANAPHYLAXIS Verified 07/19/17 17:10 iodine Allergy ANAPHYLAXIS Verified 07/19/17 17:10 raspberry Allergy ANAPHYLAXIS Verified 07/19/17 17:10 - Medications Medications: Current Medications Albuterol/Ipratropium (Duoneb 3 Mg/0.5 Mg (3 Ml) Ud) 3 ml INH RQ6 [facility] Last Admin: 09/21/17 02:35 Dose: 3 ml Enoxaparin Sodium (Lovenox) 40 mg SC DAILY [facility] Last Admin: 09/21/17 10:21 Dose: 40 mg Gabapentin (Neurontin) 800 mg PO TID [facility] Last Admin: 09/21/17 10:16 Dose: 800 mg Guaifenesin (Robitussin) 200 mg PO Q4H PRN PRN Reason: Cough Last Admin: 09/21/17 05:25 Dose: 200 mg Clindamycin Phosphate (Cleocin In Normal Saline) 600 mg in 50 mls @ 102 mls/hr IVPB Q8H [facility] PRN Reason: Protocol Last Admin: 09/21/17 10:29 Dose: 102 mls/hr Insulin Aspart (Novolog) 0 unit SC [facility] PRN Reason: Protocol Last Admin: 09/21/17 08:02 Dose: Not Given Insulin Glargine (Lantus) 30 unit SC [facility] Last Admin: 09/20/17 22:03 Dose: 30 units Lactobacillus Acidophilus (Bacid Acidophilus) 1 cap PO BID [facility] Last Admin: 09/21/17 10:16 Dose: 1 cap Montelukast Sodium (Singulair) 10 mg PO [facility] Last Admin: 09/20/17 22:03 Dose: 10 mg Oxycodone/Acetaminophen (Percocet 5/325 Mg Tab) 1 tab PO Q4H PRN PRN Reason: Pain, moderate (4-7) Stop: 09/23/17 16:31 Last Admin: 09/21/17 05:25 Dose: 1 tab Pantoprazole Sodium (Protonix Ec Tab) 20 mg PO DAILY [facility] Last Admin: 09/21/17 10:15 Dose: 20 mg Quetiapine Fumarate (Seroquel Xr) 400 mg PO Q12 [facility] Last Admin: 09/21/17 10:16 Dose: 400 mg Sertraline HCl (Zoloft) 100 mg PO [facility] Last Admin: 09/20/17 22:52 Dose: 100 mg Trazodone HCl (Desyrel) 150 mg PO [facility] Last Admin: 09/20/17 22:03 Dose: 150 mg Physical Exam - Head Exam Head Exam: ATRAUMATIC, NORMOCEPHALIC - ENT Exam ENT Exam: Mucous Membranes Moist - Respiratory Exam Respiratory Exam: Clear to Auscultation Bilateral - Cardiovascular Exam Cardiovascular Exam: REGULAR RHYTHM Results - Vital Signs Recent Vital Signs: Last Vital Signs Temp 98.5 F 09/21/17 08:00 Pulse 93 H 09/21/17 08:00 Resp 20 09/21/17 08:00 BP 137/78 09/21/17 08:00 Pulse Ox 99 09/21/17 08:00 - Labs Result Diagrams: 09/21/17 11:37 09/21/17 11:37 Labs: Laboratory Results - last 24 hr 09/20/17 09/20/17 09/20/17 14:59 14:59 21:54 WBC 12.6 H RBC 4.58 Hgb 12.3 Hct 36.6 MCV 80.0 L MCH 26.8 L MCHC 33.5 RDW 14.6 H Plt Count 178 MPV 8.6 Neut % (Auto) 72.5 Lymph % (Auto) 18.4 L [place] % (Auto) 7.1 Eos % (Auto) 1.2 Baso % (Auto) 0.8 Neut # (Auto) 9.1 H Lymph # (Auto) 2.3 [place] # (Auto) 0.9 H Eos # (Auto) 0.2 Baso # (Auto) 0.1 Sodium 142 Potassium 6.0 H Chloride 104 Carbon Dioxide 25 Anion Gap 18 BUN 18 H Creatinine 0.9 Est GFR ( Amer) > 60 Est GFR (Non-Af Amer) > 60 POC Glucose (mg/dL) 127 H Random Glucose 251 H Calcium 9.5 Total Bilirubin 0.9 AST 35 ALT 12 Alkaline Phosphatase 175 H Total Protein 9.0 H Albumin 4.4 Globulin 4.7 H Albumin/Globulin Ratio 0.9 L 09/21/17 09/21/17 09/21/17 02:25 07:19 11:01 WBC RBC Hgb Hct MCV MCH MCHC RDW Plt Count MPV Neut % (Auto) Lymph % (Auto) [place] % (Auto) Eos % (Auto) Baso % (Auto) Neut # (Auto) Lymph # (Auto) [place] # (Auto) Eos # (Auto) Baso # (Auto) Sodium Potassium Chloride Carbon Dioxide Anion Gap BUN Creatinine Est GFR ( Amer) Est GFR (Non-Af Amer) POC Glucose (mg/dL) 142 H 128 H 240 H Random Glucose Calcium Total Bilirubin AST ALT Alkaline Phosphatase Total Protein Albumin Globulin Albumin/Globulin Ratio Assessment & Plan (1) Tracheobronchitis Assessment and Plan: continue nebulizer treatment Antibiotics culture and sensitivity Status: Acute (2) Mucus plugging of bronchi Status: Acute (3) Tracheostomy dependence Status: Acute (4) COPD (chronic obstructive pulmonary disease) Status: Acute
--- NOTE | 2017-09-21 11:56 | CARD ---
APPROVED REPORT Date of service: 09/20/2017 EKG Measurement Heart [id number] <Conclusion> Normal sinus rhythm possible Septal infarct, age undetermined Abnormal ECG
[2017-09-21 12:05] LABS: ALBUMIN 3.8 g/dL (3.5-5.0); ALT/SGPT 18 U/L (9-52); AST/SGOT 22 U/L (14-36); BLOOD UREA NITROGEN 16 mg/dL (7-17); CALCIUM 9.2 mg/dl (8.6-10.4); GFR AFRICAN-AMERICAN > 60; GFR NON-AFRICAN AMERICAN > 60
[2017-09-21] MEDS: Aztreonam 1 GM in Sodium Chloride 0.9% 100 ML IVPB SCH ×2 (14:09→21:52)
[2017-09-21] MEDS: (Lantus) Insulin Glargine, Recombinant SC SCH (21:52)
[2017-09-22 00:12] VITALS: RESP 20
[2017-09-22] MEDS: Albuterol-Ipratrop 3 mg / 0.5 (3 ml) UD INH SCH ×4 (02:32→20:43)
[2017-09-22] MEDS: Oxycodone/Acetaminophen 5/325 mg Tab PO PRN ×3 (04:15→18:00)
[2017-09-22] MEDS: Aztreonam 1 GM in Sodium Chloride 0.9% 100 ML IVPB SCH ×3 (05:43→21:28)
[2017-09-22] MEDS: (Novolog) Insulin Aspart, Recombinant 100 u/ml 10 ml vial SC SCH ×4 (08:01→21:39)
--- NOTE | 2017-09-22 09:28 | CP.PCM.PN ---
Subjective - Date & Time of Evaluation Date of Evaluation: 09/22/17 Time of Evaluation: 08:00 - Subjective Subjective: patient seen and examined Breathing better Less secretions Complaining off throat pain Afebrile Continue present treatment Followup culture and sensitivity Objective - Vital Signs/Intake and Output Vital Signs (last 24 hours): Temp Pulse Resp BP Pulse Ox 98.4 F 82 20 106/69 95 09/22/17 08:00 09/22/17 08:00 09/22/17 08:00 09/22/17 08:00 09/22/17 08:00 Intake and Output: 09/22/17 09/22/17 06:59 18:59 Intake Total 350 220 Output Total 2 Balance 348 220 - Medications Medications: Current Medications Albuterol/Ipratropium (Duoneb 3 Mg/0.5 Mg (3 Ml) Ud) 3 ml INH RQ6 [facility] Last Admin: 09/22/17 02:32 Dose: 3 ml Enoxaparin Sodium (Lovenox) 40 mg SC DAILY [facility] Last Admin: 09/21/17 10:21 Dose: 40 mg Gabapentin (Neurontin) 800 mg PO TID [facility] Last Admin: 09/21/17 17:25 Dose: 800 mg Guaifenesin (Robitussin) 200 mg PO Q4H PRN PRN Reason: Cough Last Admin: 09/21/17 05:25 Dose: 200 mg Aztreonam 1 gm/ Sodium (Chloride) 100 mls @ 100 mls/hr IVPB Q8H [facility] PRN Reason: Protocol Last Admin: 09/22/17 05:43 Dose: 100 mls/hr Insulin Aspart (Novolog) 0 unit SC ACHS [facility] PRN Reason: Protocol Last Admin: 09/22/17 08:01 Dose: 1 unit Insulin Glargine (Lantus) 30 unit SC HS [facility] Last Admin: 09/21/17 21:52 Dose: 30 units Lactobacillus Acidophilus (Bacid Acidophilus) 1 cap PO BID [facility] Last Admin: 09/21/17 17:25 Dose: 1 cap Montelukast Sodium (Singulair) 10 mg PO HS [facility] Last Admin: 09/21/17 21:52 Dose: 10 mg Oxycodone/Acetaminophen (Percocet 5/325 Mg Tab) 1 tab PO Q4H PRN PRN Reason: Pain, moderate (4-7) Stop: 09/23/17 16:31 Last Admin: 09/22/17 04:15 Dose: 1 tab Pantoprazole Sodium (Protonix Ec Tab) 20 mg PO DAILY [facility] Last Admin: 09/21/17 10:15 Dose: 20 mg Quetiapine Fumarate (Seroquel Xr) 400 mg PO Q12 [facility] Last Admin: 09/21/17 21:52 Dose: 400 mg Sertraline HCl (Zoloft) [address] [facility] Last Admin: 09/21/17 21:52 Dose: 100 mg Trazodone HCl (Desyrel) 150 mg PO HS [facility] Last Admin: 09/21/17 21:52 Dose: 150 mg - Labs Labs: 09/21/17 11:37 09/21/17 11:37 Assessment and Plan (1) Tracheobronchitis Status: Acute (2) Mucus plugging of bronchi Status: Acute (3) Tracheostomy dependence Status: Acute (4) COPD (chronic obstructive pulmonary disease) Status: Acute
[2017-09-22] MEDS: Enoxaparin 40 mg Syringe SC SCH (09:32)
[2017-09-22] MEDS: Lactobacillus Acidophilus 500 MU Cap PO SCH ×2 (09:33→18:06)
[2017-09-22] MEDS: Pantoprazole 20 mg EC Tab PO SCH (09:33)
[2017-09-22] MEDS: QUEtiapine 200 mg XR Tab PO SCH ×2 (09:34→21:30)
[2017-09-22 11:02] LABS: BASO # 0.1 K/uL (0.0-0.2); EOS # 0.4 K/uL (0.0-0.7); EOS % 3.9 % (0.0-4.0); HEMOGLOBIN 11.1 g/dL (11.0-16.0); LYMPH % 22.3 % (20.0-40.0); MEAN CELL VOLUME 81.1 fL (81.0-99.0); MEAN CORPUSCULAR HEMOGLOBIN 26.9 pg (27.0-31.0); MEAN CORPUSCULAR HGB CONC 33.2 g/dL (33.0-37.0); MEAN PLATELET VOLUME 8.8 fL (7.2-11.7); MONO # 0.8 K/uL (0.0-0.8); MONO % 8.5 % (0.0-10.0); NEUT # 5.9 K/uL (1.8-7.0); NEUT % 64.3 % (50.0-75.0); NRBC % 0.1 % (0.0-2.0); RBC 4.14 Mil/uL (3.80-5.20); RED CELL DISTRIBUTION WIDTH 14.4 % (11.5-14.5); WHITE BLOOD COUNT 9.2 K/uL (4.8-10.8)
[2017-09-22 11:21] LABS: ALB/GLOB RATIO 0.9 (1.0-2.1); ALBUMIN 3.6 g/dL (3.5-5.0); ALT/SGPT 17 U/L (9-52); AST/SGOT 17 U/L (14-36); BLOOD UREA NITROGEN 14 mg/dL (7-17); GFR AFRICAN-AMERICAN > 60; GFR NON-AFRICAN AMERICAN > 60
--- NOTE | 2017-09-22 14:45 | CP.PCM.PN ---
Subjective - Date & Time of Evaluation Date of Evaluation: 09/21/17 Time of Evaluation: 20:40 - Subjective Subjective: Pt seen and examined at bedside, complaining of cough & shortness of breath and copious amount off muco purulent discharge from the tracheostomy. denies fever chills, denies chest pain Objective - Vital Signs/Intake and Output Vital Signs (last 24 hours): Temp Pulse Resp BP Pulse Ox 98.4 F 82 20 106/69 95 09/22/17 08:00 09/22/17 08:00 09/22/17 13:31 09/22/17 08:00 09/22/17 13:31 Intake and Output: 09/22/17 09/22/17 06:59 18:59 Intake Total 350 220 Output Total 2 Balance 348 220 - Medications Medications: Current Medications Albuterol/Ipratropium (Duoneb 3 Mg/0.5 Mg (3 Ml) Ud) 3 ml INH RQ6 [facility] Last Admin: 09/22/17 13:58 Dose: 3 ml Enoxaparin Sodium (Lovenox) 40 mg SC DAILY [facility] Last Admin: 09/22/17 09:32 Dose: 40 mg Gabapentin (Neurontin) 800 mg PO TID [facility] Last Admin: 09/22/17 09:34 Dose: 800 mg Guaifenesin (Robitussin) 200 mg PO Q4H PRN PRN Reason: Cough Last Admin: 09/21/17 05:25 Dose: 200 mg Aztreonam 1 gm/ Sodium (Chloride) 100 mls @ 100 mls/hr IVPB Q8H [facility] PRN Reason: Protocol Last Admin: 09/22/17 05:43 Dose: 100 mls/hr Insulin Aspart (Novolog) 0 unit SC ACHS [facility] PRN Reason: Protocol Last Admin: 09/22/17 12:11 Dose: 2 unit Insulin Glargine (Lantus) 30 unit SC HS [facility] Last Admin: 09/21/17 21:52 Dose: 30 units Lactobacillus Acidophilus (Bacid Acidophilus) 1 cap PO BID [facility] Last Admin: 09/22/17 09:33 Dose: 1 cap Montelukast Sodium (Singulair) 10 mg PO HS [facility] Last Admin: 09/21/17 21:52 Dose: 10 mg Oxycodone/Acetaminophen (Percocet 5/325 Mg Tab) 1 tab PO Q4H PRN PRN Reason: Pain, moderate (4-7) Stop: 09/23/17 16:31 Last Admin: 09/22/17 09:32 Dose: 1 tab Pantoprazole Sodium (Protonix Ec Tab) 20 mg PO DAILY [facility] Last Admin: 09/22/17 09:33 Dose: 20 mg Quetiapine Fumarate (Seroquel Xr) 400 mg PO Q12 [facility] Last Admin: 09/22/17 09:34 Dose: 400 mg Sertraline HCl (Zoloft) 100 mg PO [facility] Last Admin: 09/21/17 21:52 Dose: 100 mg Trazodone HCl (Desyrel) 150 mg PO [facility] Last Admin: 09/21/17 21:52 Dose: 150 mg - Labs Labs: 09/22/17 10:50 09/22/17 10:50 Assessment and Plan (1) Dyspnea Status: Acute (2) Mucus plugging of bronchi Status: Acute (3) Tracheostomy dependence Status: Acute (4) COPD (chronic obstructive pulmonary disease) Status: Acute (5) Respiratory distress Status: Acute (6) Tracheobronchitis Status: Acute (7) Diabetes mellitus Status: Chronic (8) HTN (hypertension) Status: Chronic (9) Morbid obesity Status: Chronic
--- NOTE | 2017-09-22 14:46 | CP.PCM.PN ---
Subjective - Date & Time of Evaluation Date of Evaluation: 09/22/17 Time of Evaluation: 19:40 - Subjective Subjective: patient seen and examined Breathing better Less secretions Complaining off throat pain Afebrile Continue present treatment Followup culture and sensitivity Objective - Vital Signs/Intake and Output Vital Signs (last 24 hours): Temp Pulse Resp BP Pulse Ox 98.4 F 82 20 106/69 95 09/22/17 08:00 09/22/17 08:00 09/22/17 13:31 09/22/17 08:00 09/22/17 13:31 Intake and Output: 09/22/17 09/22/17 06:59 18:59 Intake Total 350 220 Output Total 2 Balance 348 220 - Medications Medications: Current Medications Albuterol/Ipratropium (Duoneb 3 Mg/0.5 Mg (3 Ml) Ud) 3 ml INH RQ6 [facility] Last Admin: 09/22/17 13:58 Dose: 3 ml Enoxaparin Sodium (Lovenox) 40 mg SC DAILY [facility] Last Admin: 09/22/17 09:32 Dose: 40 mg Gabapentin (Neurontin) 800 mg PO TID [facility] Last Admin: 09/22/17 09:34 Dose: 800 mg Guaifenesin (Robitussin) 200 mg PO Q4H PRN PRN Reason: Cough Last Admin: 09/21/17 05:25 Dose: 200 mg Aztreonam 1 gm/ Sodium (Chloride) 100 mls @ 100 mls/hr IVPB Q8H [facility] PRN Reason: Protocol Last Admin: 09/22/17 05:43 Dose: 100 mls/hr Insulin Aspart (Novolog) 0 unit SC ACHS [facility] PRN Reason: Protocol Last Admin: 09/22/17 12:11 Dose: 2 unit Insulin Glargine (Lantus) 30 unit SC HS [facility] Last Admin: 09/21/17 21:52 Dose: 30 units Lactobacillus Acidophilus (Bacid Acidophilus) 1 cap PO BID [facility] Last Admin: 09/22/17 09:33 Dose: 1 cap Montelukast Sodium (Singulair) 10 mg PO HS [facility] Last Admin: 09/21/17 21:52 Dose: 10 mg Oxycodone/Acetaminophen (Percocet 5/325 Mg Tab) 1 tab PO Q4H PRN PRN Reason: Pain, moderate (4-7) Stop: 09/23/17 16:31 Last Admin: 09/22/17 09:32 Dose: 1 tab Pantoprazole Sodium (Protonix Ec Tab) 20 mg PO DAILY [facility] Last Admin: 09/22/17 09:33 Dose: 20 mg Quetiapine Fumarate (Seroquel Xr) 400 mg PO Q12 [facility] Last Admin: 09/22/17 09:34 Dose: 400 mg Sertraline HCl (Zoloft) [address] [facility] Last Admin: 09/21/17 21:52 Dose: 100 mg Trazodone HCl (Desyrel) 150 mg PO HS [facility] Last Admin: 09/21/17 21:52 Dose: 150 mg - Labs Labs: 09/22/17 10:50 09/22/17 10:50 Assessment and Plan (1) Dyspnea Status: Acute (2) Mucus plugging of bronchi Status: Acute (3) Tracheostomy dependence Status: Acute (4) COPD (chronic obstructive pulmonary disease) Status: Acute (5) Respiratory distress Status: Acute (6) Tracheobronchitis Status: Acute (7) Diabetes mellitus Status: Chronic (8) HTN (hypertension) Status: Chronic (9) Morbid obesity Status: Chronic
[2017-09-22] MEDS: (Lantus) Insulin Glargine, Recombinant SC SCH (21:31)
[2017-09-23] MEDS: Albuterol-Ipratrop 3 mg / 0.5 (3 ml) UD INH SCH ×4 (01:17→20:04)
[2017-09-23] MEDS: Aztreonam 1 GM in Sodium Chloride 0.9% 100 ML IVPB SCH ×3 (05:11→21:53)
[2017-09-23] MEDS: (Novolog) Insulin Aspart, Recombinant 100 u/ml 10 ml vial SC SCH ×4 (08:00→22:07)
[2017-09-23] MEDS: Oxycodone/Acetaminophen 5/325 mg Tab PO PRN ×2 (09:22→16:29)
[2017-09-23] MEDS: Enoxaparin 40 mg Syringe SC SCH (09:22)
[2017-09-23] MEDS: Pantoprazole 20 mg EC Tab PO SCH (09:22)
[2017-09-23] MEDS: Lactobacillus Acidophilus 500 MU Cap PO SCH ×2 (09:24→17:33)
[2017-09-23] MEDS: QUEtiapine 200 mg XR Tab PO SCH ×2 (09:33→21:54)
[2017-09-23 10:58] LABS: BASO % 0.5 % (0.0-2.0); EOS # 0.3 K/uL (0.0-0.7); EOS % 3.4 % (0.0-4.0); HEMOGLOBIN 11.1 g/dL (11.0-16.0); LYMPH # 1.9 K/uL (1.0-4.3); LYMPH % 21.6 % (20.0-40.0); MEAN CELL VOLUME 81.3 fL (81.0-99.0); MEAN CORPUSCULAR HEMOGLOBIN 27.1 pg (27.0-31.0); MEAN CORPUSCULAR HGB CONC 33.3 g/dL (33.0-37.0); MEAN PLATELET VOLUME 8.3 fL (7.2-11.7); MONO # 0.8 K/uL (0.0-0.8); MONO % 9.1 % (0.0-10.0); NEUT # 5.7 K/uL (1.8-7.0); NEUT % 65.4 % (50.0-75.0); RBC 4.09 Mil/uL (3.80-5.20); RED CELL DISTRIBUTION WIDTH 14.7 % (11.5-14.5); WHITE BLOOD COUNT 8.8 K/uL (4.8-10.8)
[2017-09-23 14:17] LABS: ALB/GLOB RATIO 0.9 (1.0-2.1); ALBUMIN 3.5 g/dL (3.5-5.0); ALT/SGPT 14 U/L (9-52); AST/SGOT 19 U/L (14-36); BLOOD UREA NITROGEN 11 mg/dL (7-17); GFR AFRICAN-AMERICAN > 60; GFR NON-AFRICAN AMERICAN > 60
[2017-09-23] MEDS: (Lantus) Insulin Glargine, Recombinant SC SCH (21:57)
--- NOTE | 2017-09-23 23:00 | CP.PCM.PN ---
Subjective - Date & Time of Evaluation Date of Evaluation: 09/23/17 Time of Evaluation: 18:00 - Subjective Subjective: pt seen and evaluated at bedside, afberile, decreased secretions from tracheostomy, positive for gram neg rods on antibiotics Objective - Vital Signs/Intake and Output Vital Signs (last 24 hours): Temp Pulse Resp BP Pulse Ox 98.8 F 74 20 125/74 95 09/23/17 15:00 09/23/17 15:00 09/23/17 15:00 09/23/17 15:00 09/23/17 15:00 Intake and Output: 09/23/17 09/24/17 18:59 06:59 Intake Total 640 450 Balance 640 450 - Medications Medications: Current Medications Acetaminophen (Tylenol 325mg Tab) 650 mg PO Q6 PRN PRN Reason: Pain, Mild (1-3) Albuterol/Ipratropium (Duoneb 3 Mg/0.5 Mg (3 Ml) Ud) 3 ml INH RQ6 [facility] Last Admin: 09/23/17 20:04 Dose: 3 ml Enoxaparin Sodium (Lovenox) 40 mg SC DAILY [facility] Last Admin: 09/23/17 09:22 Dose: 40 mg Gabapentin (Neurontin) 800 mg PO TID [facility] Last Admin: 09/23/17 17:32 Dose: 800 mg Guaifenesin (Robitussin) 200 mg PO Q4H PRN PRN Reason: Cough Last Admin: 09/21/17 05:25 Dose: 200 mg Aztreonam 1 gm/ Sodium (Chloride) 100 mls @ 100 mls/hr IVPB Q8H [facility] PRN Reason: Protocol Last Admin: 09/23/17 21:53 Dose: 100 mls/hr Insulin Aspart (Novolog) 0 unit SC ACHS [facility] PRN Reason: Protocol Last Admin: 09/23/17 22:07 Dose: Not Given Insulin Glargine (Lantus) 30 unit SC [facility] Last Admin: 09/23/17 21:57 Dose: 30 units Lactobacillus Acidophilus (Bacid Acidophilus) 1 cap PO BID [facility] Last Admin: 09/23/17 17:33 Dose: 1 cap Montelukast Sodium (Singulair) 10 mg PO HS [facility] Last Admin: 09/23/17 21:54 Dose: 10 mg Oxycodone/Acetaminophen (Percocet 5/325 Mg Tab) 1 tab PO Q4H PRN PRN Reason: Pain, moderate (4-7) Stop: 09/26/17 17:01 Pantoprazole Sodium (Protonix Ec Tab) 20 mg PO DAILY [facility] Last Admin: 09/23/17 09:22 Dose: 20 mg Quetiapine Fumarate (Seroquel Xr) 400 mg PO Q12 [facility] Last Admin: 09/23/17 21:54 Dose: 400 mg Sertraline HCl (Zoloft) 100 mg PO [facility] Last Admin: 09/23/17 21:54 Dose: 100 mg Trazodone HCl (Desyrel) 150 mg PO [facility] Last Admin: 09/23/17 21:54 Dose: 150 mg - Labs Labs: 09/23/17 10:54 09/23/17 13:50 - Constitutional Appears: No Acute Distress - Head Exam Head Exam: ATRAUMATIC, NORMAL INSPECTION, NORMOCEPHALIC - Eye Exam Eye Exam: EOMI, Normal appearance, PERRL Pupil Exam: NORMAL ACCOMODATION, PERRL - ENT Exam ENT Exam: Mucous Membranes Moist, Normal Exam - Respiratory Exam Respiratory Exam: Decreased Breath Sounds, Rhonchi, Wheezes - Cardiovascular Exam Cardiovascular Exam: REGULAR RHYTHM, +S1, +S2. absent: Murmur - GI/Abdominal Exam GI & Abdominal Exam: Soft, Normal Bowel Sounds. absent: Tenderness - Rectal Exam Rectal Exam: Deferred Assessment and Plan (1) Dyspnea Status: Acute (2) Mucus plugging of bronchi Status: Acute (3) Tracheostomy dependence Status: Acute (4) COPD (chronic obstructive pulmonary disease) Status: Acute (5) Respiratory distress Status: Acute (6) Tracheobronchitis Status: Acute (7) Diabetes mellitus Status: Chronic (8) HTN (hypertension) Status: Chronic (9) Morbid obesity Status: Chronic
[2017-09-24] MEDS: Albuterol-Ipratrop 3 mg / 0.5 (3 ml) UD INH SCH ×4 (01:04→20:00)
[2017-09-24] MEDS: Oxycodone/Acetaminophen 5/325 mg Tab PO PRN ×2 (03:51→13:36)
[2017-09-24] MEDS: Aztreonam 1 GM in Sodium Chloride 0.9% 100 ML IVPB SCH ×2 (05:04→13:45)
[2017-09-24 07:53] LABS: BASO # 0.1 K/uL (0.0-0.2); BASO % 0.7 % (0.0-2.0); EOS # 0.3 K/uL (0.0-0.7); EOS % 3.1 % (0.0-4.0); HEMOGLOBIN 10.9 g/dL (11.0-16.0); LYMPH # 2.1 K/uL (1.0-4.3); LYMPH % 24.3 % (20.0-40.0); MEAN CELL VOLUME 80.5 fL (81.0-99.0); MEAN CORPUSCULAR HEMOGLOBIN 26.9 pg (27.0-31.0); MEAN CORPUSCULAR HGB CONC 33.4 g/dL (33.0-37.0); MEAN PLATELET VOLUME 8.3 fL (7.2-11.7); MONO # 0.8 K/uL (0.0-0.8); MONO % 9.4 % (0.0-10.0); NEUT # 5.4 K/uL (1.8-7.0); NEUT % 62.5 % (50.0-75.0); NRBC % 0.1 % (0.0-2.0); RBC 4.06 Mil/uL (3.80-5.20); RED CELL DISTRIBUTION WIDTH 14.5 % (11.5-14.5); WHITE BLOOD COUNT 8.7 K/uL (4.8-10.8)
[2017-09-24 08:03] LABS: ALBUMIN 3.6 g/dL (3.5-5.0); ALT/SGPT 17 U/L (9-52); AST/SGOT 20 U/L (14-36); BLOOD UREA NITROGEN 10 mg/dL (7-17); GFR AFRICAN-AMERICAN > 60; GFR NON-AFRICAN AMERICAN > 60
[2017-09-24] MEDS: (Novolog) Insulin Aspart, Recombinant 100 u/ml 10 ml vial SC SCH ×3 (08:20→17:32)
[2017-09-24] MEDS: QUEtiapine 200 mg XR Tab PO SCH (10:30)
[2017-09-24] MEDS: Lactobacillus Acidophilus 500 MU Cap PO SCH ×2 (10:30→17:02)
[2017-09-24] MEDS: Pantoprazole 20 mg EC Tab PO SCH (10:30)
[2017-09-24] MEDS: Enoxaparin 40 mg Syringe SC SCH (10:30)
--- NOTE | 2017-09-24 13:46 | CP.PCM.PN ---
Subjective - Date & Time of Evaluation Date of Evaluation: 09/24/17 Time of Evaluation: 13:46 - Subjective Subjective: PT SEEN BY DR. SINGLETON THIS AFTERNOON. PER DR. HUGGINS, PT IS CLEARED FOR D/C HOME TODAY WITH PO ABX (CIPRO 500 MG PO BID X4 DAYS). PT TO F/U WITH DR. HUGGINS AND DR. SINGLETON IN THEIR OFFICES. PT'S INSULINS REFILLED (NOVOLIN AND LANTUS) AND RX FOR CIPRO CALLED INTO THE PHARMACY. SW TO ARRANGE TRANSPORTATION HOME. NO FURTHER ORDERS. - SEGUIMIENTO CON EL DR. HUGGINS EN LA OFICINA EN EL PLAZO DE 1 SEMANA DE [place] --- LLAME AL OFICINA MAANA PARA HACER TONNY HILARIO. - SEGUIMIENTO CON EL DR. SINGLETON EN LA OFICINA DENTRO DE 1-2 SEMANAS DE [place] -- - LLAME AL MAANA DE OFICINA PARA HACER TONNY HILARIO. -CONTINUE LOS MEDICAMENTOS DE [facility]. -NUESTRAS INSULINAS SE ENGLISH LLENADO. -NUEVOS MEDICAMENTOS PRESENTADOS A USTED HOY: 1) CIPRO (ANTIBITICO) 500 MG --- TOME 1 TABLETA POR LA BOCA DOS VECES AL DA DHIRAJ 4 GRIFFIN (COMIENZE A NAVDEEP ESTA NOCHE CON LA ANDERSON). -PARA MS PREGUNTAS O PREOCUPACIONES, CONTACTE CON EL DR. HUGGINS. -FOLLOW UP WITH DR. HUGGINS IN THE OFFICE WITHIN 1 WEEK OF DISCHARGE---CALL THE OFFICE TOMORROW TO MAKE AN APPOINTMENT. -FOLLOW UP WITH DR. SINGLETON IN THE OFFICE WITHIN 1-2 WEEKS OF DISCHARGE---CALL THE OFFICE TOMORROW TO MAKE AN APPOINTMENT. -CONTINUE YOUR HOME MEDICATIONS USUAL. -YOUR INSULINS HAVE BEEN REFILLED. -NEW MEDICATIONS BEING PRESCRIBED TO YOU TODAY: 1) CIPRO (ANTIBIOTIC) 500 MG---TAKE 1 TABLET BY MOUTH TWICE A DAY FOR 4 DAYS ( START TAKING TONIGHT WITH DINNER). -FOR FURTHER QUESTIONS OR CONCERNS, CONTACT DR. HUGGINS. Objective - Vital Signs/Intake and Output Vital Signs (last 24 hours): Temp Pulse Resp BP Pulse Ox 98.7 F 73 20 136/73 96 09/24/17 07:38 09/24/17 07:38 09/24/17 07:38 09/24/17 07:38 09/24/17 07:38 Intake and Output: 09/24/17 09/24/17 06:59 18:59 Intake Total 450 330 Balance 450 330 - Medications Medications: Current Medications Acetaminophen (Tylenol 325mg Tab) 650 mg PO Q6 PRN PRN Reason: Pain, Mild (1-3) Albuterol/Ipratropium (Duoneb 3 Mg/0.5 Mg (3 Ml) Ud) 3 ml INH RQ6 [facility] Last Admin: 09/24/17 08:41 Dose: 3 ml Enoxaparin Sodium (Lovenox) 40 mg SC DAILY [facility] Last Admin: 09/24/17 10:30 Dose: 40 mg Gabapentin (Neurontin) 800 mg PO TID [facility] Last Admin: 09/24/17 13:36 Dose: 800 mg Guaifenesin (Robitussin) 200 mg PO Q4H PRN PRN Reason: Cough Last Admin: 09/21/17 05:25 Dose: 200 mg Aztreonam 1 gm/ Sodium (Chloride) 100 mls @ 100 mls/hr IVPB Q8H [facility] PRN Reason: Protocol Last Admin: 09/24/17 05:04 Dose: 100 mls/hr Insulin Aspart (Novolog) 0 unit SC ACHS [facility] PRN Reason: Protocol Last Admin: 09/24/17 11:43 Dose: 1 unit Insulin Glargine (Lantus) 30 unit SC [facility] Last Admin: 09/23/17 21:57 Dose: 30 units Lactobacillus Acidophilus (Bacid Acidophilus) 1 cap PO BID [facility] Last Admin: 09/24/17 10:30 Dose: 1 cap Montelukast Sodium (Singulair) 10 mg PO [facility] Last Admin: 09/23/17 21:54 Dose: 10 mg Oxycodone/Acetaminophen (Percocet 5/325 Mg Tab) 1 tab PO Q4H PRN PRN Reason: Pain, moderate (4-7) Stop: 09/26/17 17:01 Last Admin: 09/24/17 13:36 Dose: 1 tab Pantoprazole Sodium (Protonix Ec Tab) 20 mg PO DAILY [facility] Last Admin: 09/24/17 10:30 Dose: 20 mg Quetiapine Fumarate (Seroquel Xr) 400 mg PO Q12 [facility] Last Admin: 09/24/17 10:30 Dose: 400 mg Sertraline HCl (Zoloft) 100 mg PO HS [facility] Last Admin: 09/23/17 21:54 Dose: 100 mg Trazodone HCl (Desyrel) 150 mg PO HS [facility] Last Admin: 09/23/17 21:54 Dose: 150 mg - Labs Labs: 09/24/17 07:20 09/24/17 07:20
--- NOTE | 2017-09-24 14:30 | CP.PCM.PN ---
Subjective - Date & Time of Evaluation Date of Evaluation: 09/24/17 Time of Evaluation: 11:30 - Subjective Subjective: patient seen and examined Patient states feeling better Still has secretions Afebrile Tracheal aspirate positive for Pseudomonas and Proteus Objective - Vital Signs/Intake and Output Vital Signs (last 24 hours): Temp Pulse Resp BP Pulse Ox 98.7 F 73 20 136/73 96 09/24/17 07:38 09/24/17 07:38 09/24/17 07:38 09/24/17 07:38 09/24/17 07:38 Intake and Output: 09/24/17 09/24/17 06:59 18:59 Intake Total 450 330 Balance 450 330 - Medications Medications: Current Medications Acetaminophen (Tylenol 325mg Tab) 650 mg PO Q6 PRN PRN Reason: Pain, Mild (1-3) Albuterol/Ipratropium (Duoneb 3 Mg/0.5 Mg (3 Ml) Ud) 3 ml INH RQ6 [facility] Last Admin: 09/24/17 08:41 Dose: 3 ml Enoxaparin Sodium (Lovenox) 40 mg SC DAILY [facility] Last Admin: 09/24/17 10:30 Dose: 40 mg Gabapentin (Neurontin) 800 mg PO TID [facility] Last Admin: 09/24/17 13:36 Dose: 800 mg Guaifenesin (Robitussin) 200 mg PO Q4H PRN PRN Reason: Cough Last Admin: 09/21/17 05:25 Dose: 200 mg Aztreonam 1 gm/ Sodium (Chloride) 100 mls @ 100 mls/hr IVPB Q8H [facility] PRN Reason: Protocol Last Admin: 09/24/17 13:45 Dose: Not Given Insulin Aspart (Novolog) 0 unit SC ACHS [facility] PRN Reason: Protocol Last Admin: 09/24/17 11:43 Dose: 1 unit Insulin Glargine (Lantus) 30 unit SC HS [facility] Last Admin: 09/23/17 21:57 Dose: 30 units Lactobacillus Acidophilus (Bacid Acidophilus) 1 cap PO BID [facility] Last Admin: 09/24/17 10:30 Dose: 1 cap Montelukast Sodium (Singulair) 10 mg PO HS [facility] Last Admin: 09/23/17 21:54 Dose: 10 mg Oxycodone/Acetaminophen (Percocet 5/325 Mg Tab) 1 tab PO Q4H PRN PRN Reason: Pain, moderate (4-7) Stop: 09/26/17 17:01 Last Admin: 09/24/17 13:36 Dose: 1 tab Pantoprazole Sodium (Protonix Ec Tab) 20 mg PO DAILY [facility] Last Admin: 09/24/17 10:30 Dose: 20 mg Quetiapine Fumarate (Seroquel Xr) 400 mg PO Q12 [facility] Last Admin: 09/24/17 10:30 Dose: 400 mg Sertraline HCl (Zoloft) 100 mg PO [facility] Last Admin: 09/23/17 21:54 Dose: 100 mg Trazodone HCl (Desyrel) 150 mg PO [facility] Last Admin: 09/23/17 21:54 Dose: 150 mg - Labs Labs: 09/24/17 07:20 09/24/17 07:20 - Head Exam Head Exam: ATRAUMATIC, NORMOCEPHALIC - ENT Exam ENT Exam: Mucous Membranes Moist - Neck Exam Neck Exam: Normal Inspection - Respiratory Exam Respiratory Exam: Clear to Ausculation Bilateral - GI/Abdominal Exam GI & Abdominal Exam: Soft, Normal Bowel Sounds Assessment and Plan (1) Tracheobronchitis Assessment & Plan: Proteus and Pseudomonas most likely colonization On antibiotics Continue nebulizer treatment Status: Acute (2) Mucus plugging of bronchi Status: Acute (3) Tracheostomy dependence Status: Acute (4) COPD (chronic obstructive pulmonary disease) Status: Acute
[2017-09-24 17:04] VITALS: BP 109/62; PULSE 79; TEMP 99.2; O2SAT 98
--- NOTE | 2017-09-25 15:30 | CP.PCM.PN ---
Subjective - Date & Time of Evaluation Date of Evaluation: 09/24/17 Time of Evaluation: 18:30 - Subjective Subjective: patient seen and examined Patient states feeling better Still has secretions Afebrile Tracheal aspirate positive for Pseudomonas and Proteus Objective - Vital Signs/Intake and Output Vital Signs (last 24 hours): Temp Pulse Resp BP Pulse Ox 99.2 F 79 20 109/62 98 09/24/17 15:30 09/24/17 15:30 09/24/17 15:30 09/24/17 15:30 09/24/17 15:30 - Labs Labs: 09/24/17 07:20 09/24/17 07:20 Assessment and Plan (1) Dyspnea Status: Acute (2) Mucus plugging of bronchi Status: Acute (3) Tracheostomy dependence Status: Acute (4) COPD (chronic obstructive pulmonary disease) Status: Acute (5) Respiratory distress Status: Acute (6) Tracheobronchitis Status: Acute (7) Diabetes mellitus Status: Chronic (8) HTN (hypertension) Status: Chronic (9) Morbid obesity Status: Chronic
--- NOTE | 2017-09-25 15:30 | CP.PCM.PN ---
Subjective - Date & Time of Evaluation Date of Evaluation: 09/25/17 Time of Evaluation: 19:35 - Subjective Subjective: patient seen and examined Objective - Vital Signs/Intake and Output Vital Signs (last 24 hours): Temp Pulse Resp BP Pulse Ox 99.2 F 79 20 109/62 98 09/24/17 15:30 09/24/17 15:30 09/24/17 15:30 09/24/17 15:30 09/24/17 15:30 - Labs Labs: 09/24/17 07:20 09/24/17 07:20 Assessment and Plan (1) Dyspnea Status: Acute (2) Mucus plugging of bronchi Status: Acute (3) Tracheostomy dependence Status: Acute (4) COPD (chronic obstructive pulmonary disease) Status: Acute (5) Respiratory distress Status: Acute (6) Tracheobronchitis Status: Acute (7) Diabetes mellitus Status: Chronic (8) HTN (hypertension) Status: Chronic (9) Morbid obesity Status: Chronic
--- NOTE | 2017-09-25 15:34 | CP.PCM.DIS ---
Provider - Provider Date of Admission: 09/22/17 13:03 Attending physician: Ad Khan MD Time Spent in preparation of Discharge (in minutes): 56 Diagnosis - Discharge Diagnosis (1) Dyspnea Status: Acute (2) Mucus plugging of bronchi Status: Acute (3) Tracheostomy dependence Status: Acute (4) COPD (chronic obstructive pulmonary disease) Status: Acute (5) Respiratory distress Status: Acute (6) Tracheobronchitis Status: Acute (7) Diabetes mellitus Status: Chronic (8) HTN (hypertension) Status: Chronic (9) Morbid obesity Status: Chronic Hospital Course - Lab Results Lab Results: Micro Results 09/20/17 19:35 Blood Blood Culture - Preliminary NO GROWTH AFTER 4 DAYS 09/20/17 19:35 Blood Blood Culture - Preliminary NO GROWTH AFTER 4 DAYS 09/22/17 06:00 Trachasp Gram Stain - Final 09/22/17 06:00 Trachasp Sputum Culture - Final Proteus Mirabilis 09/20/17 18:37 Trachasp Gram Stain - Final 09/20/17 18:37 Trachasp Sputum Culture - Final Proteus Mirabilis Pseudomonas Aeruginosa Most Recent Lab Values WBC 8.7 K/uL (4.8-10.8) 09/24/17 07:20 RBC 4.06 Mil/uL (3.80-5.20) 09/24/17 07:20 Hgb 10.9 g/dL (11.0-16.0) L 09/24/17 07:20 Hct 32.7 % (34.0-47.0) L 09/24/17 07:20 MCV 80.5 fL (81.0-99.0) L 09/24/17 07:20 MCH 26.9 pg (27.0-31.0) L 09/24/17 07:20 MCHC 33.4 g/dL (33.0-37.0) 09/24/17 07:20 RDW 14.5 % (11.5-14.5) 09/24/17 07:20 Plt Count 162 K/uL (130-400) 09/24/17 07:20 MPV 8.3 fL (7.2-11.7) 09/24/17 07:20 Neut % (Auto) 62.5 % (50.0-75.0) 09/24/17 07:20 Lymph % (Auto) 24.3 % (20.0-40.0) 09/24/17 07:20 [place] % (Auto) 9.4 % (0.0-10.0) 09/24/17 07:20 Eos % (Auto) 3.1 % (0.0-4.0) 09/24/17 07:20 Baso % (Auto) 0.7 % (0.0-2.0) 09/24/17 07:20 Neut # (Auto) 5.4 K/uL (1.8-7.0) 09/24/17 07:20 Lymph # (Auto) 2.1 K/uL (1.0-4.3) 09/24/17 07:20 [place]ether # (Auto) 0.8 K/uL (0.0-0.8) 09/24/17 07:20 Eos # (Auto) 0.3 K/uL (0.0-0.7) 09/24/17 07:20 Baso # (Auto) 0.1 K/uL (0.0-0.2) 09/24/17 07:20 Sodium 141 mmol/L (132-148) 09/24/17 07:20 Potassium 4.1 mmol/L (3.6-5.2) 09/24/17 07:20 Chloride 102 mmol/L (98-107) 09/24/17 07:20 Carbon Dioxide 30 mmol/L (22-30) 09/24/17 07:20 Anion Gap 13 (10-20) 09/24/17 07:20 BUN 10 mg/dL (7-17) 09/24/17 07:20 Creatinine 0.9 mg/dL (0.7-1.2) 09/24/17 07:20 Est GFR ( Amer) > 60 09/24/17 07:20 Est GFR (Non-Af Amer) > 60 09/24/17 07:20 POC Glucose (mg/dL) 210 mg/dL (65-110) H 09/24/17 16:30 Random Glucose 164 mg/dL (65-105) H 09/24/17 07:20 Calcium 9.0 mg/dl (8.6-10.4) 09/24/17 07:20 Total Bilirubin 0.3 mg/dL (0.2-1.3) 09/24/17 07:20 AST 20 U/L (14-36) 09/24/17 07:20 ALT 17 U/L (9-52) 09/24/17 07:20 Alkaline Phosphatase 113 U/L (38-126) 09/24/17 07:20 Total Protein 7.4 g/dL (6.3-8.3) 09/24/17 07:20 Albumin 3.6 g/dL (3.5-5.0) 09/24/17 07:20 Globulin 3.8 gm/dL (2.2-3.9) 09/24/17 07:20 Albumin/Globulin Ratio 1.0 (1.0-2.1) 09/24/17 07:20 - Hospital Course Hospital Course: patient seen and examined Patient states feeling better Still has secretions Afebrile Tracheal aspirate positive for Pseudomonas and Proteus Discharge Exam - Head Exam Head Exam: ATRAUMATIC, NORMOCEPHALIC Discharge Plan - Discharge Medications Prescriptions: Ciprofloxacin [Cipro] 500 mg PO BID #8 tab Insulin Glargine,Hum.rec.anlog [Lantus Solostar] 30 unit SQ HS #1 insuln.pen Insulin Regular, Human [Novolin R] See Protocol SQ ACHS #1 vial - Follow Up Plan Condition: STABLE Disposition: DISCHARGED TO HOME CARE Instructions: Chronic Bronchitis (DC), How to Care for a Tracheostomy Additional Instructions: - SEGUIMIENTO CON EL DR. KHAN EN LA OFICINA EN EL PLAZO DE 1 SEMANA DE [place] --- LLAME AL OFICINA MAANA PARA HACER TONNY HILARIO. - SEGUIMIENTO CON EL DR. ROSADO EN LA OFICINA DENTRO DE 1-2 SEMANAS DE [place] -- - LLAME AL MAANA DE OFICINA PARA HACER TONNY HILARIO. -CONTINUE LOS MEDICAMENTOS DE [facility] HABITUALMENTE. -NUESTRAS INSULINAS SE ENGLISH LLENADO. -NUEVOS MEDICAMENTOS PRESENTADOS A USTED HOY: 1) CIPRO (ANTIBITICO) 500 MG --- TOME 1 TABLETA POR LA BOCA DOS VECES AL DA DHIRAJ 4 GRIFFIN (COMIENZE A NAVDEEP ESTA NOCHE CON LA [employer]). -PARA MS PREGUNTAS O PREOCUPACIONES, CONTACTE CON EL DR. KHAN. -FOLLOW UP WITH DR. KHAN IN THE OFFICE WITHIN 1 WEEK OF DISCHARGE---CALL THE OFFICE TOMORROW TO MAKE AN APPOINTMENT. -FOLLOW UP WITH DR. ROSADO IN THE OFFICE WITHIN 1-2 WEEKS OF DISCHARGE---CALL THE OFFICE TOMORROW TO MAKE AN APPOINTMENT. -CONTINUE YOUR HOME MEDICATIONS USUAL. -YOUR INSULINS HAVE BEEN REFILLED. -NEW MEDICATIONS BEING PRESCRIBED TO YOU TODAY: 1) CIPRO (ANTIBIOTIC) 500 MG---TAKE 1 TABLET BY MOUTH TWICE A DAY FOR 4 DAYS ( START TAKING TONIGHT WITH DINNER). -FOR FURTHER QUESTIONS OR CONCERNS, CONTACT DR. KHAN. Referrals: Rodo Rosado MD [Staff Provider] - Ad Khan MD [Staff Provider] -
== END 2017-09-24 21:21 | disposition home health service (06) | DRG 96 ==
LOC: C.ER 14:21 → C.9E 15:59 → C.3T 16:43 → C.9E 16:44 → C.3T 19:25 → OBSVTOIN 09-22 13:03
PROVIDERS: ADMIT Internal Medicine; ATTEND Internal Medicine
DX: J98.09 Other diseases of bronchus, not elsewhere classified (principal); J20.8 Acute bronchitis due to other specified organisms; J04.10 Acute tracheitis without obstruction; J44.0 Chronic obstructive pulmonary disease with (acute) lower respiratory infection; B96.5 Pseudomonas (aeruginosa) (mallei) (pseudomallei) as the cause of diseases classified elsewhere; Z93.0 Tracheostomy status; I11.0 Hypertensive heart disease with heart failure; I50.9 Heart failure, unspecified; E11.9 Type 2 diabetes mellitus without complications; E66.01 Morbid (severe) obesity due to excess calories; F31.9 Bipolar disorder, unspecified; G47.30 Sleep apnea, unspecified; Z87.01 Personal history of pneumonia (recurrent); Z90.49 Acquired absence of other specified parts of digestive tract; Z68.42 Body mass index [BMI] 45.0-49.9, adult; Z79.4 Long term (current) use of insulin; Z88.6 Allergy status to analgesic agent; Z91.041 Radiographic dye allergy status; Z91.018 Allergy to other foods

== ENCOUNTER 2017-10-04 21:42 | Inpatient (IN) | payer OTHER ==
[2017-10-04 21:42] VITALS: BMI 45.6
[2017-10-04] MEDS ORDERED: Albuterol-Ipratrop 3 mg / 0.5 (3 ml) UD ONE ×2 (22:07→23:48)
--- NOTE | 2017-10-04 22:12 | C.PDOC ---
History Of Present Illness The patient presents to the ED for evaluation of shortness of breath and congestion which began today. Patient has a tracheostomy in place. Patient has been seen here for similar symptoms. She denies fever, chills, chest pain. Time Seen by Provider: 10/04/17 22:11 Chief Complaint (Nursing): Shortness Of Breath History Per: Patient History/Exam Limitations: no limitations Onset/Duration Of Symptoms: Hrs Current Symptoms Are (Timing): Still Present Initiating Event: Other (unknown ) Quality: denies: "Pain" Exacerbating Factor(s): Other (none ) Current Respiratory Medications: See Home Med List Severity: Mild Pain Scale Rating Of: 4 Associated Symptoms: denies: Fever, Chills, Chest Pain Recent travel outside of the [place]: No Additional History Per: Patient Past Medical History Reviewed: Historical Data, Nursing Documentation, Vital Signs Vital Signs: Last Vital Signs Temp 99.2 F 10/04/17 21:59 Pulse 100 H 10/04/17 22:46 Resp 22 10/04/17 22:46 BP 136/85 10/04/17 22:46 Pulse Ox 89 L 10/04/17 22:47 - Medical History PMH: Anxiety, Asthma, Bipolar Disorder, Bronchitis, CHF, COPD (Emphysema,), Depression, Emphysema, Gall Bladder Disease, HTN, Pneumonia, Seizures, Sleep Apnea Denies: Arthritis, HIV, Hypercholesterolemia, Hypothyroidism, Chronic Kidney Disease, Rheumatoid Arthritis, Sexually Transmitted Disease Surgical History: Appendectomy, Cholecystectomy - [facility] Procedures ASSISTANCE WITH RESPIRATORY VENTILATION, <24 HRS, CPAP (03/14/16) CENTRAL VENOUS CATHETER PLACEMENT WITH GUIDANCE (10/24/14) CHANGE TRACHEOSTOMY DEVICE IN TRACHEA, EXTERNAL APPROACH (07/03/17) CONTINUOUS INVASIVE MECHANICAL VENTILATION <96 CONSEC HRS (03/07/14) ENTERAL INFUSION OF CONCENTRATED NUT. SUBSTANCES (09/17/12) INSERT ENDOTRACHEAL TUBE (09/17/12) INSERTION OF ENDOTRACHEAL AIRWAY INTO TRACHEA, VIA OPENING (06/12/17) INSERTION OF INFUSION DEV INTO SUP VENA CAVA, PERC APPROACH (04/27/17) INTRODUCE OF OTH THERAP SUBST INTO RESP TRACT, VIA OPENING (05/03/15) INTRODUCTION OF NUTRITIONAL INTO UP GI, VIA OPENING (06/12/17) NEBULIZER THERAPY (09/17/12) REMOVAL OF TRACHEOSTOMY DEVICE FROM TRACHEA, GASOLINE ENGINE ASSEMBLER APPROACH (06/12/17) RESPIRATORY VENTILATION, 24-96 CONSECUTIVE HOURS (06/12/17) RESPIRATORY VENTILATION, GREATER THAN 96 CONSECUTIVE HOURS (02/27/17) Family History: States: Unknown Family Hx - Social History Hx Tobacco Use: No Hx Alcohol Use: No Hx Substance Use: No - Immunization History Hx Tetanus Toxoid Vaccination: No Hx Influenza Vaccination: No Hx Pneumococcal Vaccination: No Review Of Systems Constitutional: Negative for: Fever, Chills Cardiovascular: Negative for: Chest Pain, Palpitations Respiratory: Positive for: Shortness of Breath, Other (congestion ). Negative for: Cough Gastrointestinal: Negative for: Nausea, Vomiting, Abdominal Pain Skin: Negative for: Rash, Lesions, Jaundice, Bruising Neurological: Negative for: Weakness, Numbness Psych: Negative for: Anxiety Physical Exam - Physical Exam Appears: Non-toxic, No Acute Distress Skin: Warm, Dry Head: Normacephalic Eye(s): bilateral: Normal Inspection Oral Mucosa: Moist Neck: Supple, Other (tracheostomy in place) Chest: Symmetrical, No Deformity, No Tenderness Cardiovascular: Rhythm Regular, No Murmur Respiratory: No Rales, Rhonchi (scattered ), Wheezing (few ) Extremity: Normal ROM, Pedal Edema (trace), Capillary Refill (less than 2 seconds ) Pulses: Left Dorsalis Pedis: Normal, Right Dorsalis Pedis: Normal Neurological/Psych: Oriented x3 ED Course And Treatment - Laboratory Results Result Diagrams: 10/04/17 22:36 10/04/17 22:36 ECG: Interpreted By Me, Viewed By Me ECG Rhythm: Sinus Rhythm (95), Nonspecific Changes O2 Sat by Pulse Oximetry: 89 (on RA ) Pulse Ox Interpretation: Abnormal - Radiology CXR: Interpreted by Me, Viewed By Me CXR Interpretation: Yes: Infiltrates ( lll infiltrate), Other (trach in place). No: Pnemothorax Progress Note: Bloodwork, urinalysis, CXR, EKG ordered and reviewed. Albuterol INH given. Patient is receiving trach suction by therapist respiratory. Critical Care Time - Critical Care Note Total Time (in mins): 30 Documented critical care: time excludes all time spent performing seperately billable procedures. Disposition Discussed With : Ad Khan Comment: accepted the pt on his service and took over the care at 11:36 PM Doctor Will See Patient In The: Hospital Counseled Patient/Family Regarding: Studies Performed, Diagnosis - Disposition Disposition: HOSPITALIZED Disposition Time: 22:11 Condition: FAIR Forms: [email or web address] (Yakut) - POA Present On Arrival: Poor Glycemic Control - Clinical Impression Clinical Impression: Respiratory distress, COPD exacerbation, Mucus plugging of bronchi, Tracheostomy dependence - Scribe Statement The provider has reviewed the documentation as recorded by the Scribe Provider Attestation: All medical record entries made by the Scribe were at my direction and personally dictated by me. I have reviewed the chart and agree that the record accurately reflects my personal performance of the history, physical exam, medical decision making, and the department course for this patient. I have also personally directed, reviewed, and agree with the discharge instructions and disposition. Decision To Admit - Pt Status Changed To: Hospital Disposition Of: Inpatient - Admit Certification Admit to Inpatient:: After my assessment, the patient will require hospitalization for at least two midnights. This is because of the severity of symptoms shown, intensity of services needed, and/or the medical risk in this patient being treated as an outpatient. - InPatient: Physician Admission Certification: I certify that this patient requires 2 or more midnights of care for the following reason:: After my assessment, the patient will require hospitalization for at least two midnights. This is because of the severity of symptoms shown, intensity of services needed, and/or the medical risk in this patient being treated as an outpatient. - . Bed Request Type: Regular Admitting Physician: Ad Khan Patient Diagnosis: Respiratory distress, COPD exacerbation, Mucus plugging of bronchi, Tracheostomy dependence
[2017-10-04] MEDS ORDERED: Albuterol 0.042% Inhal Sol (1.25 mg/3 mL) UD ONE (22:38)
[2017-10-04 22:41] LABS: BASO # 0.1 K/uL (0.0-0.2); BASO % 0.7 % (0.0-2.0); EOS # 0.2 K/uL (0.0-0.7); EOS % 1.9 % (0.0-4.0); LYMPH # 3.3 K/uL (1.0-4.3); LYMPH % 24.7 % (20.0-40.0); MEAN CELL VOLUME 79.3 fL (81.0-99.0); MEAN CORPUSCULAR HEMOGLOBIN 27.1 pg (27.0-31.0); MEAN CORPUSCULAR HGB CONC 34.2 g/dL (33.0-37.0); MEAN PLATELET VOLUME 8.2 fL (7.2-11.7); MONO # 1.2 K/uL (0.0-0.8); NEUT # 8.5 K/uL (1.8-7.0); NEUT % 63.7 % (50.0-75.0); NRBC % 0.2 % (0.0-2.0); RBC 4.79 Mil/uL (3.80-5.20); RED CELL DISTRIBUTION WIDTH 14.8 % (11.5-14.5); WHITE BLOOD COUNT 13.4 K/uL (4.8-10.8)
[2017-10-04] MEDS: Albuterol-Ipratrop 3 mg / 0.5 (3 ml) UD IH SCH (22:45)
[2017-10-04 22:50] LABS: INR 1.1; PROTHROMBIN TIME 11.5 SECONDS (9.7-12.2)
[2017-10-04 22:51] LABS: ARTERIAL BLOOD GAS HCO3 25.3 mmol/L (21-28); ARTERIAL BLOOD GAS O2 SAT 99.3 % (95-98); ARTERIAL BLOOD GAS PCO2 55 mm/Hg (35-45); ARTERIAL BLOOD GAS PH 7.31 (7.35-7.45); ARTERIAL BLOOD GAS PO2 131 mm/Hg (80-100); ARTERIAL BLOOD GAS TCO2 29.4 mmol/L (22-28)
[2017-10-04] MEDS ORDERED: Acetylcysteine 20% Inhal Soln (4ml) INH STA (22:55)
[2017-10-04 23:00] LABS: ALB/GLOB RATIO 0.9 (1.0-2.1); ALBUMIN 4.6 g/dL (3.5-5.0); ALT/SGPT 24 U/L (9-52); AST/SGOT 20 U/L (14-36); BLOOD UREA NITROGEN 17 mg/dL (7-17); CALCIUM 10.2 mg/dl (8.6-10.4); GFR AFRICAN-AMERICAN > 60; GFR NON-AFRICAN AMERICAN > 60
[2017-10-04] MEDS ORDERED: Albuterol-Ipratrop 3 mg / 0.5 (3 ml) UD INH STA (23:49)
[2017-10-05] MEDS ORDERED: [UNRECOGNIZED DRUG - REMARK] PO PRN (01:03)
[2017-10-05] MEDS: guaiFENesin 200 mg/10 ml Syrup UD PO PRN ×2 (01:22→09:41)
[2017-10-05] MEDS ORDERED: guaiFENesin 100 mg/5 ml Syrup UD ONE (01:26)
[2017-10-05] MEDS: Acetylcysteine 20% Inhal Soln (4ml) INH SCH ×4 (01:32→19:38)
[2017-10-05] MEDS: Piperacill/Tazo 3.375gm in Dex 3.375 GM/50 ML BAG IVPB SCH ×3 (05:53→17:33)
--- NOTE | 2017-10-05 08:29 | RAD ---
Date of service: 10/04/2017 PROCEDURE: CHEST RADIOGRAPH, 1 VIEW HISTORY: SOB COMPARISON: 09/20/2017. FINDINGS: LUNGS: The lungs are well inflated. There is mild pulmonary venous congestion. PLEURA: No pneumothorax or pleural fluid seen. CARDIOVASCULAR: This persistent cardiomegaly and prominent central vasculature. OSSEOUS STRUCTURES: No significant abnormalities. VISUALIZED UPPER ABDOMEN: Normal. OTHER FINDINGS: None. IMPRESSION: Cardiomegaly and pulmonary venous congestion. No focal consolidation.
[2017-10-05] MEDS: Albuterol 0.083% Inhal Sol (2.5 mg/3 mL) UD IH SCH ×2 (08:43→19:39)
[2017-10-05] MEDS: QUEtiapine 200 mg XR Tab PO SCH ×2 (09:41→22:21)
[2017-10-05] MEDS: Pantoprazole 20 mg EC Tab PO SCH (09:41)
[2017-10-05] MEDS: (Novolin R) Insulin Human Regular 100 units/ml vial SC SCH ×4 (09:47→22:27)
[2017-10-05] MEDS: Enoxaparin 40 mg Syringe SC SCH (09:57)
--- NOTE | 2017-10-05 14:43 | CP.PCM.CON ---
History of Present Illness - History of Present Illness History of Present Illness: reason for consultation: shortness of breath 61 year old female with a past medical history of hypertension, IDDM, morbid obesity, hyperlipidemia, major depressive psychosis, bronchial asthma, chronic respiratory failure, with recurrent episodes of mucous plugging in the trache. Patient presented with c/o sob, with thick secretions for few days. Past medical history: Anxiety, asthma, bipolar disorder, bronchitis, chf, copd, depression, emphysema, hypertension, pneumonia, seizures, sleep apnea Past surgical hisotry: Appendectomy, Cholecystectomy, trach Allergies :Aspirin, ceftriaxone sodium, ibuprofen, iodine, raspberry Social history: Denies tobacco, alcohol use. Denies illicit drug use. Review of Systems - Review of Systems All systems: reviewed and no additional remarkable complaints except (cough and thick secretions) Past Patient History - Infectious Disease Hx of Infectious Diseases: None - Tetanus Immunizations Tetanus Immunization: Unknown - Past Medical History & Family History Past Medical History?: Yes - Past Social History Smoking Status: Never Smoked - CARDIAC Hx Congestive Heart Failure: Yes Hx Hypercholesterolemia: No Hx Hypertension: Yes - PULMONARY Hx Asthma: Yes Hx Bronchitis: Yes Hx Chronic Obstructive Pulmonary Disease (COPD): Yes (Emphysema,) Hx Emphysema: Yes Hx Pneumonia: Yes Hx Sleep Apnea: Yes - NEUROLOGICAL Hx Seizures: Yes - HEENT Hx HEENT Problems: Yes Hx Cataracts: Yes - RENAL Hx Chronic Kidney Disease: No - ENDOCRINE/METABOLIC Hx Hypothyroidism: No - HEMATOLOGICAL/ONCOLOGICAL Hx Human Immunodeficiency Virus (HIV): No - INTEGUMENTARY Hx Dermatological Problems: No - MUSCULOSKELETAL/RHEUMATOLOGICAL Hx Arthritis: No Hx Falls: No Hx Rheumatoid Arthritis: No - GASTROINTESTINAL Hx Gall Bladder Disease: Yes - GENITOURINARY/GYNECOLOGICAL Hx Sexually Transmitted Disorders: No - PSYCHIATRIC Hx Anxiety: Yes Hx Bipolar Disorder: Yes Hx Depression: Yes Hx Substance Use: No - SURGICAL HISTORY Hx Appendectomy: Yes Hx Cholecystectomy: Yes - ANESTHESIA Hx Anesthesia: Yes Hx Anesthesia Reactions: No Hx Malignant Hyperthermia: No Meds Allergies/Adverse Reactions: Allergies Allergy/AdvReac Type Severity Reaction Status Date / Time aspirin Allergy ANAPHYLAXIS Verified 10/04/17 22:03 ceftriaxone sodium Allergy ANAPHYLAXIS Verified 10/04/17 22:03 [From Rocephin] ibuprofen [From Motrin] Allergy ANAPHYLAXIS Verified 10/04/17 22:03 iodine Allergy ANAPHYLAXIS Verified 10/04/17 22:03 raspberry Allergy ANAPHYLAXIS Verified 10/04/17 22:03 - Medications Medications: Current Medications Acetaminophen (Tylenol 325mg Tab) 650 mg PO Q4 PRN PRN Reason: Pain, Mild (1-3) Acetylcysteine (Acetylcysteine 20%) 4 ml [facility]H RQ6 [facility] Last Admin: 10/05/17 08:43 Dose: 4 ml Albuterol Sulfate (Albuterol 0.083% Inhal Liz (2.5 Mg/3 Ml) Ud) 2.5 mg IH RQ8 [facility] Last Admin: 10/05/17 08:43 Dose: 2.5 mg Enoxaparin Sodium (Lovenox) 40 mg SC DAILY [facility] Last Admin: 10/05/17 09:57 Dose: 40 mg Gabapentin (Neurontin) 800 mg PO TID [facility] Last Admin: 10/05/17 14:35 Dose: 800 mg Guaifenesin (Robitussin) 200 mg PO Q4H PRN PRN Reason: Cough and congestion Last Admin: 10/05/17 09:41 Dose: 200 mg Piperacillin Sod/Tazobactam Sod (Zosyn 3.375 Gm Iv Premix) 3.375 gm in 50 mls @ 100 mls/hr IVPB Q6H [facility] PRN Reason: Protocol Last Admin: 10/05/17 14:21 Dose: 100 mls/hr Insulin Glargine (Lantus) 30 unit SC HS [facility] Insulin Human Regular (Novolin R) 1 unit SC ACHS [facility] PRN Reason: Protocol Last Admin: 10/05/17 14:34 Dose: 2 units Lorazepam (Ativan) 0.5 mg PO BID [facility] Last Admin: 10/05/17 13:54 Dose: 0.5 mg Montelukast Sodium (Singulair) 10 mg PO HS [facility] Pantoprazole Sodium (Protonix Ec Tab) 20 mg PO DAILY [facility] Last Admin: 10/05/17 09:41 Dose: 20 mg Quetiapine Fumarate (Seroquel Xr) 400 mg PO Q12 [facility] Last Admin: 10/05/17 09:41 Dose: 400 mg Sertraline HCl (Zoloft) 100 mg PO HS [facility] Tramadol HCl (Ultram) 50 mg PO Q6 PRN PRN Reason: Pain, moderate (4-7) Trazodone HCl (Desyrel) 150 mg PO HS [facility] Physical Exam - Head Exam Head Exam: ATRAUMATIC, NORMOCEPHALIC - Eye Exam Eye Exam: Normal appearance - ENT Exam ENT Exam: Mucous Membranes Moist - Respiratory Exam Respiratory Exam: Rhonchi, Wheezes - Cardiovascular Exam Cardiovascular Exam: REGULAR RHYTHM Results - Vital Signs Recent Vital Signs: Last Vital Signs Temp 98.3 F 10/05/17 08:00 Pulse 79 10/05/17 08:00 Resp 20 10/05/17 08:00 BP 128/77 10/05/17 08:00 Pulse Ox 98 10/05/17 08:00 - Labs Result Diagrams: 10/04/17 22:36 10/04/17 22:36 Labs: Laboratory Results - last 24 hr 10/04/17 10/04/17 10/04/17 22:35 22:36 22:36 WBC 13.4 H D RBC 4.79 Hgb 13.0 D Hct 38.0 MCV 79.3 L MCH 27.1 MCHC 34.2 RDW 14.8 H Plt Count 203 MPV 8.2 Neut % (Auto) 63.7 Lymph % (Auto) 24.7 [place] % (Auto) 9.0 Eos % (Auto) 1.9 Baso % (Auto) 0.7 Neut # (Auto) 8.5 H Lymph # (Auto) 3.3 [place] # (Auto) 1.2 H Eos # (Auto) 0.2 Baso # (Auto) 0.1 PT 11.5 INR 1.1 APTT 38 H Puncture Site Left rad pCO2 55 H pO2 131 H HCO3 25.3 ABG pH 7.31 L ABG Total CO2 29.4 H ABG O2 Saturation 99.3 H ABG Base Excess 0.4 Rob Test Na ABG Potassium 4.3 A-a O2 Difference 85.0 Respiratory Index 0.6 Sodium 142.0 Chloride 107.0 Glucose 179 H Lactate 1.5 FiO2 40.0 Potassium Carbon Dioxide Anion Gap BUN Creatinine Est GFR ( Amer) Est GFR (Non-Af Amer) POC Glucose (mg/dL) Random Glucose Calcium Magnesium Total Bilirubin AST ALT Alkaline Phosphatase Total Protein Albumin Globulin Albumin/Globulin Ratio Arterial Blood Potassium 4.3 10/04/17 10/05/17 22:36 06:30 WBC RBC Hgb Hct MCV MCH MCHC RDW Plt Count MPV Neut % (Auto) Lymph % (Auto) [place] % (Auto) Eos % (Auto) Baso % (Auto) Neut # (Auto) Lymph # (Auto) [place] # (Auto) Eos # (Auto) Baso # (Auto) PT INR APTT Puncture Site pCO2 pO2 HCO3 ABG pH ABG Total CO2 ABG O2 Saturation ABG Base Excess Rob Test ABG Potassium A-a O2 Difference Respiratory Index Sodium 144 Chloride 105 Glucose Lactate FiO2 Potassium 4.3 Carbon Dioxide 25 Anion Gap 19 BUN 17 Creatinine 0.8 Est GFR ( Amer) > 60 Est GFR (Non-Af Amer) > 60 POC Glucose (mg/dL) 197 H Random Glucose 183 H Calcium 10.2 Magnesium 1.9 Total Bilirubin 0.5 AST 20 ALT 24 Alkaline Phosphatase 166 H D Total Protein 9.4 H Albumin 4.6 Globulin 4.9 H Albumin/Globulin Ratio 0.9 L Arterial Blood Potassium Assessment & Plan (1) COPD exacerbation Assessment and Plan: continue nebulizer treatment Pseudomonas in the tracheal aspirate during last admission ID evaluation continue Zosyn for now Continue nebulizer treatment Culture and sensitivity Status: Acute (2) Tracheostomy dependence Status: Acute (3) Healthcare-associated pneumonia Status: Acute
--- NOTE | 2017-10-05 18:29 | CP.PCM.CON ---
History of Present Illness - History of Present Illness History of Present Illness: 61 y/o female with history of COPD brought to ED by EMS for evaluation of sob and cough. Patient was admitted for COPD exacerbation under Dr. Khan service. HPI limited secondary to patient condition. denies headache + fever cough sob ID coinsulted for antibiotic management - Medical History PMH: Anxiety, Asthma, Bipolar Disorder, Bronchitis, CHF, COPD, Depression, Emphysema, HTN, Pneumonia, Seizures, Sleep Apnea Surgical History: Appendectomy, Cholecystectomy - [facility] Procedures ASSISTANCE WITH RESPIRATORY VENTILATION, <24 HRS, CPAP (03/14/16) CENTRAL VENOUS CATHETER PLACEMENT WITH GUIDANCE (10/24/14) CHANGE TRACHEOSTOMY DEVICE IN TRACHEA, EXTERNAL APPROACH (08/25/16) CONTINUOUS INVASIVE MECHANICAL VENTILATION <96 CONSEC HRS (03/07/14) ENTERAL INFUSION OF CONCENTRATED NUT. SUBSTANCES (09/17/12) INSERT ENDOTRACHEAL TUBE (09/17/12) INSERTION OF INFUSION DEV INTO SUP VENA CAVA, PERC APPROACH (04/27/17) INTRODUCE OF OTH THERAP SUBST INTO RESP TRACT, VIA OPENING (05/03/15) NEBULIZER THERAPY (09/17/12) RESPIRATORY VENTILATION, 24-96 CONSECUTIVE HOURS (04/27/17) RESPIRATORY VENTILATION, GREATER THAN 96 CONSECUTIVE HOURS (02/27/17) Review of Systems - Review of Systems All systems: reviewed and no additional remarkable complaints except - Constitutional Constitutional: As Per HPI - EENT Eyes: absent: As Per HPI, Blind Spots, Blurred Vision, Change in Vision, Decreased Night Vision, Diplopia, Discharge, Dry Eye, Exophthalmos, Floaters, Irritation, Itchy Eyes, Loss of Peripheral Vision, Pain, Photophobia, Requires Corrective Lenses, Sees Flashes, Spots in Vision, Tunnel Vision, Other Visual Disturbances, Loss of Vision, Other Ears: absent: As Per HPI, Decreased Hearing, Ear Discharge, Ear Pain, Tinnitus, Abnormal Hearing, Disequilibrium, Dizziness, Other Nose/Mouth/Throat: absent: As Per HPI, Epistaxis, Nasal Congestion, Nasal Discharge, Nasal Obstruction, Nasal Trauma, Nose Pain, Post Nasal Drip, Sinus Pain, Sinus Pressure, Bleeding Gums, Change in Voice, Dental Pain, Dry Mouth, Dysphagia, Halitosis, Hoarsness, Lip Swelling, Mouth Lesions, Mouth Pain, Odynophagia, Sore Throat, Throat Swelling, Tongue Swelling, Facial Pain, Neck Pain, Neck Mass, Other - Breasts Breasts: absent: As Per HPI, Change in Shape, Mass, Pain, Nipple Discharge, Nipple Inversion, Skin Changes, Swelling, Other - Cardiovascular Cardiovascular: As Per HPI - Respiratory Respiratory: As Per HPI - Gastrointestinal Gastrointestinal: absent: As Per HPI, Abdominal Pain, Belching, Bloating, Change in Bowel Habits, Change in Stool Character, Coffee Ground Emesis, Constipation, Cramping, Diarrhea, Dyspepsia, Dysphagia, Early Satiety, Excessive Flatus, Fecal Incontinence, Heartburn, Hematemesis, Hematochezia, Loose Stools, Melena, Nausea, Odynophagia, Temesmus, Vomiting, Other - Genitourinary Genitourinary: absent: As Per HPI, Change in Urinary Stream, Difficulty Urinating, Dysuria, Flank Pain, Hematuria, Pyuria, Nocturia, Urinary Incontinence, Urinary Frequency, Urinary Hesitance, Urinary Urgency, Voiding Freq/Small Amts, Freq UTI, Hx Renal/Bladder Calculi, Hx /Renal Surgery, Bladder Distension, Other - Reproductive: Female Reproductive:Female: absent: As Per HPI, Amenorrhea, Amenorrhea/ Control, Currently Menstual, Cycle <21 Days, Cycle >35 Days, Cycle Variable, Menses 1-7 Days, Menses >/= 8 Days, Menses Variable, Cycle > 4 Weeks Between, No Menses for 6 Months, Heavy Menses, Light Menses, Normal Menses, Spotting Between Cycles , S/P Hysterectomy, Menopausal, Post Menopausal, Premenarche, Abnormal Vaginal Bleeding, Dysmenorrhea, Dyspareunia, Genital Lesions, Genital Pruritis, Pelvic Pain, Prolapse Symptoms, Sexual Dysfunction, Vaginal Discharge, Vaginal Dryness , Vaginal Odor, Vaginal Pruritis, Other - Menstruation Menstruation: absent: As Per HPI, Amenorrhea, Amenorrhea/ Control, Currently Menstual, Cycle <21 Days, Cycle >35 Days, Cycle Variable, Menses 1-7 Days, Menses >/= 8 Days, Menses Variable, Cycle > 4 Weeks Between, No Menses for 6 Months, Heavy Menses, Light Menses, Normal Menses, Spotting Between Cycles , S/P Hysterectomy, Menopausal, Post Menopausal, Premenarche, Abnormal Vaginal Bleeding, Dysmenorrhea, Other - Musculoskeletal Musculoskeletal: As Per HPI, Arthralgias - Integumentary Integumentary: absent: As Per HPI, Acne, Alopecia, Bleeding Lesions, Change in Hair, Change in Nails, Change in Pigmentation, Changing Lesions, Dry Skin, Erythema, Furuncle, Hirsutism, Lesions, New Lesions, Non-Healing Lesions, Photosensitivity, Pruritus, Rash, Skin Pain, Skin Ulcer, Sores, Striae, Swelling , Unusual Bruising, Wounds, Jaundice, Other - Neurological Neurological: absent: As Per HPI, Abnormal Gait, Abnormal Hearing, Abnormal Movements, Abnormal Speech, Behavioral Changes, Burning Sensations, Confusion, Convulsions, Disequilibrium, Dizziness, Numbness, Focal Weakness, Frequent Falls , Headaches, Lack of Coordination, Loss of Vision, Memory Loss, Paresthesias, Radicular Pain, Restless Legs, Sensory Deficit, Syncope, Tingling, Tremor, Vertigo, Weakness, Other Visual Disturbances, Other - Psychiatric Psychiatric: absent: As Per HPI, Abnormal Sleep Pattern, Anhedonia, Anxiety, Auditory Hallucinations, Behavioral Changes, Change in Appetite, Change in Libido, Confusion, Depression, Difficulty Concentrating, Hallucinations, Homicidal Ideation, Hopelessness, Irritability, Memory Loss, Mood Swings, Panic Attacks, Paranoia, Suicidal Ideation, Visual Hallucinations, Tactile Hallucinations, Other - Endocrine Endocrine: absent: As Per HPI, Change in Body Appearance, Change in Libido, Cold Intolorance, Deepening of Voice, Excessive Sweating, Fatigue, Flushing, Heat Intolorance, Increase in Ring/Shoe/Hat Size, Palpitations, Polydipsia, Polyphagia, Polyuria, Other - Hematologic/Lymphatic Hematologic: absent: As Per HPI, Easy Bleeding, Easy Bruising, Lymphadenopathy, Other Past Patient History - Infectious Disease Hx of Infectious Diseases: None - Tetanus Immunizations Tetanus Immunization: Unknown - Past Medical History & Family History Past Medical History?: Yes - Past Social History Smoking Status: Never Smoked - CARDIAC Hx Congestive Heart Failure: Yes Hx Hypercholesterolemia: No Hx Hypertension: Yes - PULMONARY Hx Asthma: Yes Hx Bronchitis: Yes Hx Chronic Obstructive Pulmonary Disease (COPD): Yes (Emphysema,) Hx Emphysema: Yes Hx Pneumonia: Yes Hx Sleep Apnea: Yes - NEUROLOGICAL Hx Seizures: Yes - HEENT Hx HEENT Problems: Yes Hx Cataracts: Yes - RENAL Hx Chronic Kidney Disease: No - ENDOCRINE/METABOLIC Hx Hypothyroidism: No - HEMATOLOGICAL/ONCOLOGICAL Hx Human Immunodeficiency Virus (HIV): No - INTEGUMENTARY Hx Dermatological Problems: No - MUSCULOSKELETAL/RHEUMATOLOGICAL Hx Arthritis: No Hx Falls: No Hx Rheumatoid Arthritis: No - GASTROINTESTINAL Hx Gall Bladder Disease: Yes - GENITOURINARY/GYNECOLOGICAL Hx Sexually Transmitted Disorders: No - PSYCHIATRIC Hx Anxiety: Yes Hx Bipolar Disorder: Yes Hx Depression: Yes Hx Substance Use: No - SURGICAL HISTORY Hx Appendectomy: Yes Hx Cholecystectomy: Yes - ANESTHESIA Hx Anesthesia: Yes Hx Anesthesia Reactions: No Hx Malignant Hyperthermia: No Meds Allergies/Adverse Reactions: Allergies Allergy/AdvReac Type Severity Reaction Status Date / Time aspirin Allergy ANAPHYLAXIS Verified 10/04/17 22:03 ceftriaxone sodium Allergy ANAPHYLAXIS Verified 10/04/17 22:03 [From Rocephin] ibuprofen [From Motrin] Allergy ANAPHYLAXIS Verified 10/04/17 22:03 iodine Allergy ANAPHYLAXIS Verified 10/04/17 22:03 raspberry Allergy ANAPHYLAXIS Verified 10/04/17 22:03 - Medications Medications: Current Medications Acetaminophen (Tylenol 325mg Tab) 650 mg PO Q4 PRN PRN Reason: Pain, Mild (1-3) Last Admin: 10/05/17 17:30 Dose: 650 mg Acetylcysteine (Acetylcysteine 20%) 4 ml INH RQ6 [facility] Last Admin: 10/05/17 08:43 Dose: 4 ml Albuterol Sulfate (Albuterol 0.083% Inhal Liz (2.5 Mg/3 Ml) Ud) 2.5 mg IH RQ8 [facility] Last Admin: 10/05/17 08:43 Dose: 2.5 mg Enoxaparin Sodium (Lovenox) 40 mg SC DAILY [facility] Last Admin: 10/05/17 09:57 Dose: 40 mg Gabapentin (Neurontin) 800 mg PO TID [facility] Last Admin: 10/05/17 17:30 Dose: 800 mg Guaifenesin (Robitussin) 200 mg PO Q4H PRN PRN Reason: Cough and congestion Last Admin: 10/05/17 09:41 Dose: 200 mg Piperacillin Sod/Tazobactam Sod (Zosyn 3.375 Gm Iv Premix) 3.375 gm in 50 mls @ 100 mls/hr IVPB Q6H [facility] PRN Reason: Protocol Last Admin: 10/05/17 17:33 Dose: 100 mls/hr Insulin Glargine (Lantus) 30 unit SC HS [facility] Insulin Human Regular (Novolin R) 1 unit SC ACHS [facility] PRN Reason: Protocol Last Admin: 10/05/17 17:29 Dose: 3 units Lorazepam (Ativan) 0.5 mg PO BID [facility] Last Admin: 10/05/17 17:30 Dose: 0.5 mg Montelukast Sodium (Singulair) 10 mg PO HS [facility] Pantoprazole Sodium (Protonix Ec Tab) 20 mg PO DAILY [facility] Last Admin: 10/05/17 09:41 Dose: 20 mg Quetiapine Fumarate (Seroquel Xr) 400 mg PO Q12 [facility] Last Admin: 10/05/17 09:41 Dose: 400 mg Sertraline HCl (Zoloft) 100 mg PO HS [facility] Tramadol HCl (Ultram) 50 mg PO Q6 PRN PRN Reason: Pain, moderate (4-7) Trazodone HCl (Desyrel) 150 mg PO HS [facility] Physical Exam - Constitutional Appears: Non-toxic, Chronically Ill - Head Exam Head Exam: ATRAUMATIC, NORMOCEPHALIC - Eye Exam Eye Exam: absent: Scleral icterus - ENT Exam ENT Exam: Mucous Membranes Dry, Normal External Ear Exam Additional comments: + trach - Neck Exam Neck exam: Negative for: Lymphadenopathy - Respiratory Exam Respiratory Exam: Decreased Breath Sounds, Prolonged Expiratory Phase, Rhonchi - Cardiovascular Exam Cardiovascular Exam: REGULAR RHYTHM, +S1, +S2 - GI/Abdominal Exam GI & Abdominal Exam: Diminished Bowel Sounds, Soft. absent: Tenderness - Rectal Exam Rectal Exam: Deferred - Exam Exam: NORMAL INSPECTION - Extremities Exam Extremities exam: Negative for: pedal edema - Back Exam Back exam: absent: CVA tenderness (L), CVA tenderness (R), paraspinal tenderness - Neurological Exam Neurological exam: Alert, CN II-XII Intact, Oriented x3, Reflexes Normal - Psychiatric Exam Psychiatric exam: Depressed - Skin Skin Exam: Dry Results - Vital Signs Recent Vital Signs: Last Vital Signs Temp 100.0 F H 10/05/17 17:30 Pulse 102 H 10/05/17 16:19 Resp 20 10/05/17 16:19 BP 126/75 10/05/17 16:19 Pulse Ox 99 10/05/17 16:19 - Labs Result Diagrams: 10/04/17 22:36 10/04/17 22:36 Labs: Laboratory Results - last 24 hr 10/04/17 10/04/17 10/04/17 22:35 22:36 22:36 WBC 13.4 H D RBC 4.79 Hgb 13.0 D Hct 38.0 MCV 79.3 L MCH 27.1 MCHC 34.2 RDW 14.8 H Plt Count 203 MPV 8.2 Neut % (Auto) 63.7 Lymph % (Auto) 24.7 [place] % (Auto) 9.0 Eos % (Auto) 1.9 Baso % (Auto) 0.7 Neut # (Auto) 8.5 H Lymph # (Auto) 3.3 [place] # (Auto) 1.2 H Eos # (Auto) 0.2 Baso # (Auto) 0.1 PT 11.5 INR 1.1 APTT 38 H Puncture Site Left rad pCO2 55 H pO2 131 H HCO3 25.3 ABG pH 7.31 L ABG Total CO2 29.4 H ABG O2 Saturation 99.3 H ABG Base Excess 0.4 Rob Test Na ABG Potassium 4.3 A-a O2 Difference 85.0 Respiratory Index 0.6 Sodium 142.0 Chloride 107.0 Glucose 179 H Lactate 1.5 FiO2 40.0 Potassium Carbon Dioxide Anion Gap BUN Creatinine Est GFR ( Amer) Est GFR (Non-Af Amer) POC Glucose (mg/dL) Random Glucose Calcium Magnesium Total Bilirubin AST ALT Alkaline Phosphatase Total Protein Albumin Globulin Albumin/Globulin Ratio Arterial Blood Potassium 4.3 10/04/17 10/05/17 10/05/17 22:36 06:30 11:40 WBC RBC Hgb Hct MCV MCH MCHC RDW Plt Count MPV Neut % (Auto) Lymph % (Auto) [place] % (Auto) Eos % (Auto) Baso % (Auto) Neut # (Auto) Lymph # (Auto) [place] # (Auto) Eos # (Auto) Baso # (Auto) PT INR APTT Puncture Site pCO2 pO2 HCO3 ABG pH ABG Total CO2 ABG O2 Saturation ABG Base Excess Rob Test ABG Potassium A-a O2 Difference Respiratory Index Sodium 144 Chloride 105 Glucose Lactate FiO2 Potassium 4.3 Carbon Dioxide 25 Anion Gap 19 BUN 17 Creatinine 0.8 Est GFR ( Amer) > 60 Est GFR (Non-Af Amer) > 60 POC Glucose (mg/dL) 197 H 162 H Random Glucose 183 H Calcium 10.2 Magnesium 1.9 Total Bilirubin 0.5 AST 20 ALT 24 Alkaline Phosphatase 166 H D Total Protein 9.4 H Albumin 4.6 Globulin 4.9 H Albumin/Globulin Ratio 0.9 L Arterial Blood Potassium 10/05/17 16:41 WBC RBC Hgb Hct MCV MCH MCHC RDW Plt Count MPV Neut % (Auto) Lymph % (Auto) [place] % (Auto) Eos % (Auto) Baso % (Auto) Neut # (Auto) Lymph # (Auto) [place] # (Auto) Eos # (Auto) Baso # (Auto) PT INR APTT Puncture Site pCO2 pO2 HCO3 ABG pH ABG Total CO2 ABG O2 Saturation ABG Base Excess Rob Test ABG Potassium A-a O2 Difference Respiratory Index Sodium Chloride Glucose Lactate FiO2 Potassium Carbon Dioxide Anion Gap BUN Creatinine Est GFR ( Amer) Est GFR (Non-Af Amer) POC Glucose (mg/dL) 242 H Random Glucose Calcium Magnesium Total Bilirubin AST ALT Alkaline Phosphatase Total Protein Albumin Globulin Albumin/Globulin Ratio Arterial Blood Potassium Assessment & Plan (1) COPD exacerbation Status: Acute (2) Mucus plugging of bronchi Status: Acute (3) Tracheostomy dependence Status: Acute (4) COPD (chronic obstructive pulmonary disease) Status: Acute (5) Dyspnea Status: Acute (6) Tracheobronchitis Status: Acute (7) Diabetes mellitus, insulin dependent (IDDM), uncontrolled Status: Chronic (8) Morbid obesity Status: Chronic - Assessment and Plan (Free Text) Assessment: cultures reviewed agree with IV Zosyn for now Plan: may need carbapenem rx if this fails
[2017-10-05] MEDS: (Lantus) Insulin Glargine, Recombinant SC SCH (22:21)
--- NOTE | 2017-10-06 00:24 | CP.PCM.HP ---
History of Present Illness - History of Present Illness History of Present Illness: CC: shortness of breath History of Present Illness: 61 year old female with a past medical history of hypertension, IDDM, morbid obesity, hyperlipidemia, major depressive psychosis, bronchial asthma, chronic respiratory failure, with recurrent episodes of mucous plugging in the trache. Patient presented with c/o sob, with thick secretions for few days. Past medical history: Anxiety, asthma, bipolar disorder, bronchitis, chf, copd, depression, emphysema, hypertension, pneumonia, seizures, sleep apnea Past surgical hisotry: Appendectomy, Cholecystectomy, trach Allergies :Aspirin, ceftriaxone sodium, ibuprofen, iodine, raspberry Social history: Denies tobacco, alcohol use. Denies illicit drug use. Past Patient History - Infectious Disease Hx of Infectious Diseases: None - Tetanus Immunizations Tetanus Immunization: Unknown - Past Medical History & Family History Past Medical History?: Yes - Past Social History Smoking Status: Never Smoked - CARDIAC Hx Congestive Heart Failure: Yes Hx Hypercholesterolemia: No Hx Hypertension: Yes - PULMONARY Hx Asthma: Yes Hx Bronchitis: Yes Hx Chronic Obstructive Pulmonary Disease (COPD): Yes (Emphysema,) Hx Emphysema: Yes Hx Pneumonia: Yes Hx Sleep Apnea: Yes - NEUROLOGICAL Hx Seizures: Yes - HEENT Hx HEENT Problems: Yes Hx Cataracts: Yes - RENAL Hx Chronic Kidney Disease: No - ENDOCRINE/METABOLIC Hx Hypothyroidism: No - HEMATOLOGICAL/ONCOLOGICAL Hx Human Immunodeficiency Virus (HIV): No - INTEGUMENTARY Hx Dermatological Problems: No - MUSCULOSKELETAL/RHEUMATOLOGICAL Hx Arthritis: No Hx Falls: No Hx Rheumatoid Arthritis: No - GASTROINTESTINAL Hx Gall Bladder Disease: Yes - GENITOURINARY/GYNECOLOGICAL Hx Sexually Transmitted Disorders: No - PSYCHIATRIC Hx Anxiety: Yes Hx Bipolar Disorder: Yes Hx Depression: Yes Hx Substance Use: No - SURGICAL HISTORY Hx Appendectomy: Yes Hx Cholecystectomy: Yes - ANESTHESIA Hx Anesthesia: Yes Hx Anesthesia Reactions: No Hx Malignant Hyperthermia: No Meds Allergies/Adverse Reactions: Allergies Allergy/AdvReac Type Severity Reaction Status Date / Time aspirin Allergy ANAPHYLAXIS Verified 10/04/17 22:03 ceftriaxone sodium Allergy ANAPHYLAXIS Verified 10/04/17 22:03 [From Rocephin] ibuprofen [From Motrin] Allergy ANAPHYLAXIS Verified 10/04/17 22:03 iodine Allergy ANAPHYLAXIS Verified 10/04/17 22:03 raspberry Allergy ANAPHYLAXIS Verified 10/04/17 22:03 Results - Vital Signs Recent Vital Signs: Last Vital Signs Temp 99.8 F H 10/05/17 18:30 Pulse 102 H 10/05/17 16:19 Resp 20 10/05/17 16:19 BP 126/75 10/05/17 16:19 Pulse Ox 99 10/05/17 16:19 - Labs Result Diagrams: 10/04/17 22:36 10/04/17 22:36 Labs: Laboratory Results - last 24 hr 10/05/17 10/05/17 10/05/17 06:30 11:40 16:41 POC Glucose (mg/dL) 197 H 162 H 242 H
[2017-10-06] MEDS: Piperacill/Tazo 3.375gm in Dex 3.375 GM/50 ML BAG IVPB SCH ×4 (00:28→17:06)
[2017-10-06] MEDS: Albuterol 0.083% Inhal Sol (2.5 mg/3 mL) UD IH SCH ×3 (01:52→16:31)
[2017-10-06] MEDS: Acetylcysteine 20% Inhal Soln (4ml) INH SCH ×4 (01:52→19:36)
[2017-10-06] MEDS: (Novolin R) Insulin Human Regular 100 units/ml vial SC SCH ×5 (08:25→22:14)
[2017-10-06] MEDS: guaiFENesin 200 mg/10 ml Syrup UD PO PRN (10:49)
[2017-10-06] MEDS: Enoxaparin 40 mg Syringe SC SCH (10:49)
[2017-10-06] MEDS: Pantoprazole 20 mg EC Tab PO SCH (10:50)
[2017-10-06] MEDS: QUEtiapine 200 mg XR Tab PO SCH ×2 (10:50→22:01)
--- NOTE | 2017-10-06 12:34 | CARD ---
APPROVED REPORT Date of service: 10/04/2017 EKG Measurement Heart [id number] <Conclusion> Normal sinus rhythm Normal ECG
[2017-10-06 17:05] LABS: BASO % 0.4 % (0.0-2.0); EOS # 0.3 K/uL (0.0-0.7); EOS % 2.3 % (0.0-4.0); LYMPH # 1.7 K/uL (1.0-4.3); LYMPH % 14.6 % (20.0-40.0); MEAN CELL VOLUME 79.5 fL (81.0-99.0); MEAN CORPUSCULAR HEMOGLOBIN 25.9 pg (27.0-31.0); MEAN CORPUSCULAR HGB CONC 32.6 g/dL (33.0-37.0); MEAN PLATELET VOLUME 8.3 fL (7.2-11.7); MONO % 8.6 % (0.0-10.0); NEUT # 8.4 K/uL (1.8-7.0); NEUT % 74.1 % (50.0-75.0); RBC 4.24 Mil/uL (3.80-5.20); RED CELL DISTRIBUTION WIDTH 14.3 % (11.5-14.5); WHITE BLOOD COUNT 11.3 K/uL (4.8-10.8)
[2017-10-06 17:31] LABS: ALBUMIN 3.8 g/dL (3.5-5.0); ALT/SGPT 23 U/L (9-52); AST/SGOT 16 U/L (14-36); BLOOD UREA NITROGEN 15 mg/dL (7-17); CALCIUM 9.2 mg/dl (8.6-10.4); GFR AFRICAN-AMERICAN > 60; GFR NON-AFRICAN AMERICAN > 60
--- NOTE | 2017-10-06 21:20 | CP.PCM.PN ---
Subjective - Date & Time of Evaluation Date of Evaluation: 10/06/17 Time of Evaluation: 18:40 - Subjective Subjective: Patient seen and examined still having cough and large amount of secretion thru tracheostomy patient is awake and responsive Afebrile Objective - Vital Signs/Intake and Output Vital Signs (last 24 hours): Temp Pulse Resp BP Pulse Ox 98.2 F 80 20 110/68 98 10/06/17 16:04 10/06/17 16:04 10/06/17 16:04 10/06/17 16:04 10/06/17 16:04 Intake and Output: 10/06/17 10/07/17 18:59 06:59 Intake Total 350 Balance 350 - Medications Medications: Current Medications Acetaminophen (Tylenol 325mg Tab) 650 mg PO Q4 PRN PRN Reason: Pain, Mild (1-3) Last Admin: 10/05/17 17:30 Dose: 650 mg Acetylcysteine (Acetylcysteine 20%) 4 ml INH RQ6 [facility] Last Admin: 10/06/17 19:36 Dose: Not Given Albuterol Sulfate (Albuterol 0.083% Inhal Liz (2.5 Mg/3 Ml) Ud) 2.5 mg IH RQ8 [facility] Last Admin: 10/06/17 16:31 Dose: 2.5 mg Enoxaparin Sodium (Lovenox) 40 mg SC DAILY [facility] Last Admin: 10/06/17 10:49 Dose: 40 mg Gabapentin (Neurontin) 800 mg PO TID [facility] Last Admin: 10/06/17 17:06 Dose: 800 mg Guaifenesin (Robitussin) 200 mg PO Q4H PRN PRN Reason: Cough and congestion Last Admin: 10/06/17 10:49 Dose: 200 mg Piperacillin Sod/Tazobactam Sod (Zosyn 3.375 Gm Iv Premix) 3.375 gm in 50 mls @ 100 mls/hr IVPB Q6H [facility] PRN Reason: Protocol Last Admin: 10/06/17 17:06 Dose: 100 mls/hr Insulin Glargine (Lantus) 30 unit SC HS [facility] Last Admin: 10/05/17 22:21 Dose: 30 unit Insulin Human Regular (Novolin R) 1 unit SC ACHS [facility] PRN Reason: Protocol Last Admin: 10/06/17 17:06 Dose: 3 units Lorazepam (Ativan) 0.5 mg PO BID [facility] Last Admin: 10/06/17 17:06 Dose: 0.5 mg Montelukast Sodium (Singulair) 10 mg PO [facility] Last Admin: 10/05/17 22:22 Dose: 10 mg Pantoprazole Sodium (Protonix Ec Tab) 20 mg PO DAILY [facility] Last Admin: 10/06/17 10:50 Dose: 20 mg Quetiapine Fumarate (Seroquel Xr) 400 mg PO Q12 [facility] Last Admin: 10/06/17 10:50 Dose: 400 mg Sertraline HCl (Zoloft) 100 mg PO [facility] Last Admin: 10/05/17 22:22 Dose: 100 mg Tramadol HCl (Ultram) 50 mg PO Q6 PRN PRN Reason: Pain, moderate (4-7) Last Admin: 10/06/17 13:06 Dose: 50 mg Trazodone HCl (Desyrel) 150 mg PO [facility] Last Admin: 10/05/17 22:22 Dose: 150 mg - Labs Labs: 10/06/17 16:30 10/06/17 16:30 PT 11.5 SECONDS (9.7-12.2) 10/04/17 22:36 INR 1.1 10/04/17 22:36 APTT 38 SECONDS (21-34) H 10/04/17 22:36 - Head Exam Head Exam: ATRAUMATIC, NORMOCEPHALIC - ENT Exam ENT Exam: Mucous Membranes Moist - Respiratory Exam Respiratory Exam: Rhonchi, Wheezes - Cardiovascular Exam Cardiovascular Exam: REGULAR RHYTHM - GI/Abdominal Exam GI & Abdominal Exam: Soft, Normal Bowel Sounds Assessment and Plan (1) COPD exacerbation Assessment & Plan: Continue nebulizer treatment and antibiotics Follow-up culture and sensitivity Seen by infectious disease Status: Acute (2) Tracheostomy dependence Status: Acute (3) Healthcare-associated pneumonia Status: Acute
[2017-10-06] MEDS: (Lantus) Insulin Glargine, Recombinant SC SCH (21:59)
[2017-10-07] MEDS: Piperacill/Tazo 3.375gm in Dex 3.375 GM/50 ML BAG IVPB SCH ×4 (00:08→17:29)
[2017-10-07] MEDS: Acetylcysteine 20% Inhal Soln (4ml) INH SCH ×4 (02:13→19:01)
[2017-10-07] MEDS: Albuterol 0.083% Inhal Sol (2.5 mg/3 mL) UD IH SCH ×3 (02:13→17:00)
[2017-10-07] MEDS: (Novolin R) Insulin Human Regular 100 units/ml vial SC SCH ×4 (08:30→22:22)
[2017-10-07] MEDS: Enoxaparin 40 mg Syringe SC SCH (10:31)
[2017-10-07] MEDS: QUEtiapine 200 mg XR Tab PO SCH ×2 (10:31→22:19)
[2017-10-07] MEDS: Pantoprazole 20 mg EC Tab PO SCH (10:32)
--- NOTE | 2017-10-07 14:02 | CP.PCM.PN ---
Subjective - Date & Time of Evaluation Date of Evaluation: 10/07/17 Time of Evaluation: 08:00 - Subjective Subjective: afeb on IV rx Objective - Vital Signs/Intake and Output Vital Signs (last 24 hours): Temp Pulse Resp BP Pulse Ox 98.2 F 85 20 105/62 96 10/07/17 07:16 10/07/17 07:16 10/07/17 07:16 10/07/17 07:16 10/07/17 07:16 - Medications Medications: Current Medications Acetaminophen (Tylenol 325mg Tab) 650 mg PO Q4 PRN PRN Reason: Pain, Mild (1-3) Last Admin: 10/05/17 17:30 Dose: 650 mg Acetylcysteine (Acetylcysteine 20%) 4 ml INH RQ6 [facility] Last Admin: 10/07/17 13:22 Dose: Not Given Albuterol Sulfate (Albuterol 0.083% Inhal Liz (2.5 Mg/3 Ml) Ud) 2.5 mg IH RQ8 [facility] Last Admin: 10/07/17 08:12 Dose: 2.5 mg Enoxaparin Sodium (Lovenox) 40 mg SC DAILY [facility] Last Admin: 10/07/17 10:31 Dose: 40 mg Gabapentin (Neurontin) 800 mg PO TID [facility] Last Admin: 10/07/17 13:02 Dose: 800 mg Guaifenesin (Robitussin) 200 mg PO Q4H PRN PRN Reason: Cough and congestion Last Admin: 10/06/17 10:49 Dose: 200 mg Piperacillin Sod/Tazobactam Sod (Zosyn 3.375 Gm Iv Premix) 3.375 gm in 50 mls @ 100 mls/hr IVPB Q6H [facility] PRN Reason: Protocol Last Admin: 10/07/17 13:00 Dose: 100 mls/hr Insulin Glargine (Lantus) 30 unit SC HS [facility] Last Admin: 10/06/17 21:59 Dose: 30 unit Insulin Human Regular (Novolin R) 1 unit SC ACHS [facility] PRN Reason: Protocol Last Admin: 10/07/17 12:30 Dose: 3 units Lorazepam (Ativan) 0.5 mg PO BID [facility] Last Admin: 10/07/17 10:31 Dose: 0.5 mg Montelukast Sodium (Singulair) 10 mg PO HS [facility] Last Admin: 10/06/17 21:59 Dose: 10 mg Pantoprazole Sodium (Protonix Ec Tab) 20 mg PO DAILY [facility] Last Admin: 10/07/17 10:32 Dose: 20 mg Quetiapine Fumarate (Seroquel Xr) 400 mg PO Q12 [facility] Last Admin: 10/07/17 10:31 Dose: 400 mg Sertraline HCl (Zoloft) 100 mg PO HS [facility] Last Admin: 10/06/17 21:59 Dose: 100 mg Tramadol HCl (Ultram) 50 mg PO Q6 PRN PRN Reason: Pain, moderate (4-7) Last Admin: 10/06/17 21:58 Dose: 50 mg Trazodone HCl (Desyrel) 150 mg PO [facility] Last Admin: 10/06/17 21:59 Dose: 150 mg - Labs Labs: 10/06/17 16:30 10/06/17 16:30 PT 11.5 SECONDS (9.7-12.2) 10/04/17 22:36 INR 1.1 10/04/17 22:36 APTT 38 SECONDS (21-34) H 10/04/17 22:36 - Constitutional Appears: Non-toxic, Chronically Ill - Head Exam Head Exam: NORMOCEPHALIC - Eye Exam Eye Exam: absent: Scleral icterus - ENT Exam ENT Exam: Mucous Membranes Dry - Neck Exam Neck Exam: absent: Lymphadenopathy - Respiratory Exam Respiratory Exam: Decreased Breath Sounds - Cardiovascular Exam Cardiovascular Exam: REGULAR RHYTHM - GI/Abdominal Exam GI & Abdominal Exam: Distended - Rectal Exam Rectal Exam: Deferred - Exam Exam: NORMAL INSPECTION - Extremities Exam Extremities Exam: absent: Pedal Edema - Back Exam Back Exam: absent: CVA tenderness (L), CVA tenderness (R) Assessment and Plan (1) COPD exacerbation Status: Acute (2) Mucus plugging of bronchi Status: Acute (3) Tracheostomy dependence Status: Acute (4) COPD (chronic obstructive pulmonary disease) Status: Acute (5) Dyspnea Status: Acute (6) Tracheobronchitis Status: Acute (7) Diabetes mellitus, insulin dependent (IDDM), uncontrolled Status: Chronic (8) Morbid obesity Status: Chronic
--- NOTE | 2017-10-07 21:19 | CP.PCM.PN ---
Subjective - Date & Time of Evaluation Date of Evaluation: 10/06/17 Time of Evaluation: 20:40 - Subjective Subjective: Patient seen and examined, no fever still having cough and large amount of secretion thru tracheostomy patient is awake and responsive Afebrile Objective - Vital Signs/Intake and Output Vital Signs (last 24 hours): Temp Pulse Resp BP Pulse Ox 98.6 F 80 20 111/76 97 10/07/17 15:49 10/07/17 15:49 10/07/17 15:49 10/07/17 15:49 10/07/17 15:49 Intake and Output: 10/07/17 10/08/17 18:59 06:59 Intake Total 300 Balance 300 - Medications Medications: Current Medications Acetaminophen (Tylenol 325mg Tab) 650 mg PO Q4 PRN PRN Reason: Pain, Mild (1-3) Last Admin: 10/05/17 17:30 Dose: 650 mg Acetylcysteine (Acetylcysteine 20%) 4 ml INH RQ6 [facility] Last Admin: 10/07/17 19:01 Dose: Not Given Albuterol Sulfate (Albuterol 0.083% Inhal Liz (2.5 Mg/3 Ml) Ud) 2.5 mg IH RQ8 [facility] Last Admin: 10/07/17 17:00 Dose: 2.5 mg Enoxaparin Sodium (Lovenox) 40 mg SC DAILY [facility] Last Admin: 10/07/17 10:31 Dose: 40 mg Gabapentin (Neurontin) 800 mg PO TID [facility] Last Admin: 10/07/17 17:28 Dose: 800 mg Guaifenesin (Robitussin) 200 mg PO Q4H PRN PRN Reason: Cough and congestion Last Admin: 10/06/17 10:49 Dose: 200 mg Piperacillin Sod/Tazobactam Sod (Zosyn 3.375 Gm Iv Premix) 3.375 gm in 50 mls @ 100 mls/hr IVPB Q6H [facility] PRN Reason: Protocol Last Admin: 10/07/17 17:29 Dose: 100 mls/hr Insulin Glargine (Lantus) 30 unit SC HS [facility] Last Admin: 10/06/17 21:59 Dose: 30 unit Insulin Human Regular (Novolin R) 1 unit SC ACHS [facility] PRN Reason: Protocol Last Admin: 10/07/17 17:28 Dose: 2 units Lorazepam (Ativan) 0.5 mg PO BID [facility] Last Admin: 10/07/17 17:28 Dose: 0.5 mg Montelukast Sodium (Singulair) [address] [facility] Last Admin: 10/06/17 21:59 Dose: 10 mg Pantoprazole Sodium (Protonix Ec Tab) 20 mg PO DAILY [facility] Last Admin: 10/07/17 10:32 Dose: 20 mg Quetiapine Fumarate (Seroquel Xr) 400 mg PO Q12 [facility] Last Admin: 10/07/17 10:31 Dose: 400 mg Sertraline HCl (Zoloft) [address] [facility] Last Admin: 10/06/17 21:59 Dose: 100 mg Tramadol HCl (Ultram) 50 mg PO Q6 PRN PRN Reason: Pain, moderate (4-7) Last Admin: 10/07/17 17:28 Dose: 50 mg Trazodone HCl (Desyrel) [address] [facility] Last Admin: 10/06/17 21:59 Dose: 150 mg - Labs Labs: 10/06/17 16:30 10/06/17 16:30 PT 11.5 SECONDS (9.7-12.2) 10/04/17 22:36 INR 1.1 10/04/17 22:36 APTT 38 SECONDS (21-34) H 10/04/17 22:36 - Constitutional Appears: No Acute Distress - Head Exam Head Exam: ATRAUMATIC, NORMAL INSPECTION, NORMOCEPHALIC - Eye Exam Eye Exam: EOMI, Normal appearance, PERRL Pupil Exam: NORMAL ACCOMODATION, PERRL - ENT Exam ENT Exam: Mucous Membranes Moist, Normal Exam - Respiratory Exam Respiratory Exam: Clear to Ausculation Bilateral, NORMAL BREATHING PATTERN - Cardiovascular Exam Cardiovascular Exam: REGULAR RHYTHM, +S1, +S2. absent: Murmur - Rectal Exam Rectal Exam: Deferred Assessment and Plan (1) COPD exacerbation Status: Acute (2) Tracheostomy dependence Status: Acute (3) Anemia Status: Acute (4) COPD (chronic obstructive pulmonary disease) Status: Acute (5) Steroid-induced hyperglycemia Status: Acute
--- NOTE | 2017-10-07 21:21 | CP.PCM.PN ---
Subjective - Date & Time of Evaluation Date of Evaluation: 10/07/17 Time of Evaluation: 18:00 - Subjective Subjective: Patient seen and examined still having cough and large amount of secretion thru tracheostomy patient is awake and responsive Afebrile Objective - Vital Signs/Intake and Output Vital Signs (last 24 hours): Temp Pulse Resp BP Pulse Ox 98.6 F 80 20 111/76 97 10/07/17 15:49 10/07/17 15:49 10/07/17 15:49 10/07/17 15:49 10/07/17 15:49 Intake and Output: 10/07/17 10/08/17 18:59 06:59 Intake Total 300 Balance 300 - Medications Medications: Current Medications Acetaminophen (Tylenol 325mg Tab) 650 mg PO Q4 PRN PRN Reason: Pain, Mild (1-3) Last Admin: 10/05/17 17:30 Dose: 650 mg Acetylcysteine (Acetylcysteine 20%) 4 ml INH RQ6 [facility] Last Admin: 10/07/17 19:01 Dose: Not Given Albuterol Sulfate (Albuterol 0.083% Inhal Liz (2.5 Mg/3 Ml) Ud) 2.5 mg IH RQ8 [facility] Last Admin: 10/07/17 17:00 Dose: 2.5 mg Enoxaparin Sodium (Lovenox) 40 mg SC DAILY [facility] Last Admin: 10/07/17 10:31 Dose: 40 mg Gabapentin (Neurontin) 800 mg PO TID [facility] Last Admin: 10/07/17 17:28 Dose: 800 mg Guaifenesin (Robitussin) 200 mg PO Q4H PRN PRN Reason: Cough and congestion Last Admin: 10/06/17 10:49 Dose: 200 mg Piperacillin Sod/Tazobactam Sod (Zosyn 3.375 Gm Iv Premix) 3.375 gm in 50 mls @ 100 mls/hr IVPB Q6H [facility] PRN Reason: Protocol Last Admin: 10/07/17 17:29 Dose: 100 mls/hr Insulin Glargine (Lantus) 30 unit SC HS [facility] Last Admin: 10/06/17 21:59 Dose: 30 unit Insulin Human Regular (Novolin R) 1 unit SC ACHS [facility] PRN Reason: Protocol Last Admin: 10/07/17 17:28 Dose: 2 units Lorazepam (Ativan) 0.5 mg PO BID [facility] Last Admin: 10/07/17 17:28 Dose: 0.5 mg Montelukast Sodium (Singulair) 10 mg PO [facility] Last Admin: 10/06/17 21:59 Dose: 10 mg Pantoprazole Sodium (Protonix Ec Tab) 20 mg PO DAILY [facility] Last Admin: 10/07/17 10:32 Dose: 20 mg Quetiapine Fumarate (Seroquel Xr) 400 mg PO Q12 [facility] Last Admin: 10/07/17 10:31 Dose: 400 mg Sertraline HCl (Zoloft) 100 mg PO [facility] Last Admin: 10/06/17 21:59 Dose: 100 mg Tramadol HCl (Ultram) 50 mg PO Q6 PRN PRN Reason: Pain, moderate (4-7) Last Admin: 10/07/17 17:28 Dose: 50 mg Trazodone HCl (Desyrel) 150 mg PO [facility] Last Admin: 10/06/17 21:59 Dose: 150 mg - Labs Labs: 10/06/17 16:30 10/06/17 16:30 PT 11.5 SECONDS (9.7-12.2) 10/04/17 22:36 INR 1.1 10/04/17 22:36 APTT 38 SECONDS (21-34) H 10/04/17 22:36 - Constitutional Appears: No Acute Distress - Head Exam Head Exam: ATRAUMATIC, NORMAL INSPECTION, NORMOCEPHALIC - Eye Exam Eye Exam: EOMI, Normal appearance, PERRL Pupil Exam: NORMAL ACCOMODATION, PERRL - ENT Exam ENT Exam: Mucous Membranes Moist, Normal Exam - Respiratory Exam Respiratory Exam: Decreased Breath Sounds, Rales, Rhonchi - Cardiovascular Exam Cardiovascular Exam: REGULAR RHYTHM, +S1, +S2. absent: Murmur - GI/Abdominal Exam GI & Abdominal Exam: Soft, Normal Bowel Sounds. absent: Tenderness - Rectal Exam Rectal Exam: Deferred Assessment and Plan (1) COPD exacerbation Status: Acute (2) Tracheostomy dependence Status: Acute (3) Anemia Status: Acute (4) COPD (chronic obstructive pulmonary disease) Status: Acute (5) Steroid-induced hyperglycemia Status: Acute
[2017-10-07] MEDS: (Lantus) Insulin Glargine, Recombinant SC SCH (22:19)
[2017-10-08] MEDS: Piperacill/Tazo 3.375gm in Dex 3.375 GM/50 ML BAG IVPB SCH ×4 (00:51→17:55)
[2017-10-08] MEDS: Acetylcysteine 20% Inhal Soln (4ml) INH SCH ×4 (01:24→19:19)
[2017-10-08] MEDS: Albuterol 0.083% Inhal Sol (2.5 mg/3 mL) UD IH SCH ×3 (01:24→16:25)
[2017-10-08] MEDS: (Novolin R) Insulin Human Regular 100 units/ml vial SC SCH ×4 (08:40→21:51)
[2017-10-08] MEDS: Enoxaparin 40 mg Syringe SC SCH (09:02)
[2017-10-08] MEDS: Pantoprazole 20 mg EC Tab PO SCH (09:03)
[2017-10-08] MEDS: QUEtiapine 200 mg XR Tab PO SCH ×2 (09:03→21:59)
--- NOTE | 2017-10-08 12:16 | CP.PCM.PN ---
Subjective - Date & Time of Evaluation Date of Evaluation: 10/08/17 Time of Evaluation: 07:00 - Subjective Subjective: cont to c/o congestion Objective - Vital Signs/Intake and Output Vital Signs (last 24 hours): Temp Pulse Resp BP Pulse Ox 98.5 F 84 20 114/73 100 10/08/17 07:54 10/08/17 07:54 10/08/17 07:54 10/08/17 07:54 10/08/17 07:54 - Medications Medications: Current Medications Acetaminophen (Tylenol 325mg Tab) 650 mg PO Q4 PRN PRN Reason: Pain, Mild (1-3) Last Admin: 10/05/17 17:30 Dose: 650 mg Acetylcysteine (Acetylcysteine 20%) 4 ml INH RQ6 [facility] Last Admin: 10/08/17 07:44 Dose: 4 ml Albuterol Sulfate (Albuterol 0.083% Inhal Liz (2.5 Mg/3 Ml) Ud) 2.5 mg IH RQ8 [facility] Last Admin: 10/08/17 07:44 Dose: 2.5 mg Enoxaparin Sodium (Lovenox) 40 mg SC DAILY [facility] Last Admin: 10/08/17 09:02 Dose: 40 mg Gabapentin (Neurontin) 800 mg PO TID [facility] Last Admin: 10/08/17 09:03 Dose: 800 mg Guaifenesin (Robitussin) 200 mg PO Q4H PRN PRN Reason: Cough and congestion Last Admin: 10/06/17 10:49 Dose: 200 mg Piperacillin Sod/Tazobactam Sod (Zosyn 3.375 Gm Iv Premix) 3.375 gm in 50 mls @ 100 mls/hr IVPB Q6H [facility] PRN Reason: Protocol Last Admin: 10/08/17 05:14 Dose: 100 mls/hr Insulin Glargine (Lantus) 30 unit SC HS [facility] Last Admin: 10/07/17 22:19 Dose: 30 unit Insulin Human Regular (Novolin R) 1 unit SC ACHS [facility] PRN Reason: Protocol Last Admin: 10/08/17 08:40 Dose: 2 units Lorazepam (Ativan) 0.5 mg PO BID [facility] Last Admin: 10/08/17 09:03 Dose: 0.5 mg Montelukast Sodium (Singulair) 10 mg PO HS [facility] Last Admin: 10/07/17 22:19 Dose: 10 mg Pantoprazole Sodium (Protonix Ec Tab) 20 mg PO DAILY [facility] Last Admin: 10/08/17 09:03 Dose: 20 mg Quetiapine Fumarate (Seroquel Xr) 400 mg PO Q12 [facility] Last Admin: 10/08/17 09:03 Dose: 400 mg Sertraline HCl (Zoloft) 100 mg PO [facility] Last Admin: 10/07/17 22:19 Dose: 100 mg Tramadol HCl (Ultram) 50 mg PO Q6 PRN PRN Reason: Pain, moderate (4-7) Last Admin: 10/08/17 09:12 Dose: 50 mg Trazodone HCl (Desyrel) 150 mg PO [facility] Last Admin: 10/07/17 22:19 Dose: 150 mg - Labs Labs: 10/06/17 16:30 10/06/17 16:30 PT 11.5 SECONDS (9.7-12.2) 10/04/17 22:36 INR 1.1 10/04/17 22:36 APTT 38 SECONDS (21-34) H 10/04/17 22:36 - Constitutional Appears: Non-toxic, Chronically Ill - Head Exam Head Exam: NORMOCEPHALIC - Eye Exam Eye Exam: Normal appearance - ENT Exam ENT Exam: Mucous Membranes Dry - Neck Exam Neck Exam: absent: Lymphadenopathy - Respiratory Exam Respiratory Exam: Decreased Breath Sounds - Cardiovascular Exam Cardiovascular Exam: REGULAR RHYTHM - GI/Abdominal Exam GI & Abdominal Exam: Distended, Soft Assessment and Plan (1) COPD exacerbation Status: Acute (2) Mucus plugging of bronchi Status: Acute (3) Tracheostomy dependence Status: Acute (4) COPD (chronic obstructive pulmonary disease) Status: Acute (5) Dyspnea Status: Acute (6) Tracheobronchitis Status: Acute (7) Diabetes mellitus, insulin dependent (IDDM), uncontrolled Status: Chronic (8) Morbid obesity Status: Chronic - Assessment and Plan (Free Text) Assessment: await sputum c/s cont rx
--- NOTE | 2017-10-08 13:42 | DS ---
Copied To: Ad Khan MD Attending MD: Ad Khan MD ADMISSION DIAGNOSIS: Tracheobronchitis. DISCHARGE DIAGNOSES: Tracheobronchitis with tracheostomy, hypertension, type 2 diabetes, and depression. HISTORY OF PRESENT ILLNESS: This is a 61-year-old female with history of tracheostomy, morbid obesity, , hypertension, type 2 diabetes, depression. She is on home oxygen, home nebulizer. She has a tracheostomy. She came in because of cough, congestion, shortness of breath, and wheezing. The patient was admitted to the floor. Pancultures were done, started on broad spectrum antibiotics and culture under tracheostomy showed Stenotrophomonas maltophilia. The patient was treated with antibiotics, stabilized and discharged. CONDITION UPON DISCHARGE: Stable. WBC 13.4, hemoglobin 13, hematocrit 38, platelets 203. PT 11.5 and noted normal sodium 144, potassium 4.3, chloride 105, bicarb 25, BUN 17, creatinine 0.8, alk phos stabilized and discharged. Ad Khan MD
--- NOTE | 2017-10-08 18:27 | CP.PCM.PN ---
Subjective - Date & Time of Evaluation Date of Evaluation: 10/08/17 Time of Evaluation: 11:20 - Subjective Subjective: Patient seen and examined Still complaining of cough and shortness of breath Status post tracheostomy Being treated for tracheobronchitis Antibiotics per ID Objective - Vital Signs/Intake and Output Vital Signs (last 24 hours): Temp Pulse Resp BP Pulse Ox 97.5 F L 89 20 114/73 100 10/08/17 16:00 10/08/17 16:00 10/08/17 16:00 10/08/17 07:54 10/08/17 16:00 - Medications Medications: Current Medications Acetaminophen (Tylenol 325mg Tab) 650 mg PO Q4 PRN PRN Reason: Pain, Mild (1-3) Last Admin: 10/05/17 17:30 Dose: 650 mg Acetylcysteine (Acetylcysteine 20%) 4 ml INH RQ6 [facility] Last Admin: 10/08/17 16:25 Dose: 4 ml Albuterol Sulfate (Albuterol 0.083% Inhal Liz (2.5 Mg/3 Ml) Ud) 2.5 mg IH RQ8 [facility] Last Admin: 10/08/17 16:25 Dose: 2.5 mg Enoxaparin Sodium (Lovenox) 40 mg SC DAILY [facility] Last Admin: 10/08/17 09:02 Dose: 40 mg Gabapentin (Neurontin) 800 mg PO TID [facility] Last Admin: 10/08/17 17:55 Dose: 800 mg Guaifenesin (Robitussin) 200 mg PO Q4H PRN PRN Reason: Cough and congestion Last Admin: 10/06/17 10:49 Dose: 200 mg Piperacillin Sod/Tazobactam Sod (Zosyn 3.375 Gm Iv Premix) 3.375 gm in 50 mls @ 100 mls/hr IVPB Q6H [facility] PRN Reason: Protocol Last Admin: 10/08/17 17:55 Dose: 100 mls/hr Insulin Glargine (Lantus) 30 unit SC HS [facility] Last Admin: 10/07/17 22:19 Dose: 30 unit Insulin Human Regular (Novolin R) 1 unit SC ACHS [facility] PRN Reason: Protocol Last Admin: 10/08/17 17:50 Dose: Not Given Lorazepam (Ativan) 0.5 mg PO BID [facility] Last Admin: 10/08/17 17:55 Dose: 0.5 mg Montelukast Sodium (Singulair) 10 mg PO HS [facility] Last Admin: 10/07/17 22:19 Dose: 10 mg Pantoprazole Sodium (Protonix Ec Tab) 20 mg PO DAILY [facility] Last Admin: 10/08/17 09:03 Dose: 20 mg Quetiapine Fumarate (Seroquel Xr) 400 mg PO Q12 [facility] Last Admin: 10/08/17 09:03 Dose: 400 mg Sertraline HCl (Zoloft) 100 mg PO [facility] Last Admin: 10/07/17 22:19 Dose: 100 mg Tramadol HCl (Ultram) 50 mg PO Q6 PRN PRN Reason: Pain, moderate (4-7) Last Admin: 10/08/17 17:57 Dose: 50 mg Trazodone HCl (Desyrel) 150 mg PO [facility] Last Admin: 10/07/17 22:19 Dose: 150 mg - Labs Labs: 10/06/17 16:30 10/06/17 16:30 PT 11.5 SECONDS (9.7-12.2) 10/04/17 22:36 INR 1.1 10/04/17 22:36 APTT 38 SECONDS (21-34) H 10/04/17 22:36 Assessment and Plan (1) COPD exacerbation Status: Acute (2) Tracheostomy dependence Status: Acute (3) Healthcare-associated pneumonia Status: Acute
--- NOTE | 2017-10-08 20:53 | CP.PCM.PN ---
Objective - Vital Signs/Intake and Output Vital Signs (last 24 hours): Temp Pulse Resp BP Pulse Ox 97.5 F L 89 20 114/73 100 10/08/17 16:00 10/08/17 16:00 10/08/17 16:00 10/08/17 07:54 10/08/17 16:00 - Medications Medications: Current Medications Acetaminophen (Tylenol 325mg Tab) 650 mg PO Q4 PRN PRN Reason: Pain, Mild (1-3) Last Admin: 10/05/17 17:30 Dose: 650 mg Acetylcysteine (Acetylcysteine 20%) 4 ml INH RQ6 [facility] Last Admin: 10/08/17 19:19 Dose: Not Given Albuterol Sulfate (Albuterol 0.083% Inhal Liz (2.5 Mg/3 Ml) Ud) 2.5 mg IH RQ8 [facility] Last Admin: 10/08/17 16:25 Dose: 2.5 mg Enoxaparin Sodium (Lovenox) 40 mg SC DAILY [facility] Last Admin: 10/08/17 09:02 Dose: 40 mg Gabapentin (Neurontin) 800 mg PO TID [facility] Last Admin: 10/08/17 17:55 Dose: 800 mg Guaifenesin (Robitussin) 200 mg PO Q4H PRN PRN Reason: Cough and congestion Last Admin: 10/06/17 10:49 Dose: 200 mg Piperacillin Sod/Tazobactam Sod (Zosyn 3.375 Gm Iv Premix) 3.375 gm in 50 mls @ 100 mls/hr IVPB Q6H [facility] PRN Reason: Protocol Last Admin: 10/08/17 17:55 Dose: 100 mls/hr Insulin Glargine (Lantus) 30 unit SC HS [facility] Last Admin: 10/07/17 22:19 Dose: 30 unit Insulin Human Regular (Novolin R) 1 unit SC ACHS [facility] PRN Reason: Protocol Last Admin: 10/08/17 17:50 Dose: Not Given Lorazepam (Ativan) 0.5 mg PO BID [facility] Last Admin: 10/08/17 17:55 Dose: 0.5 mg Montelukast Sodium (Singulair) 10 mg PO HS [facility] Last Admin: 10/07/17 22:19 Dose: 10 mg Pantoprazole Sodium (Protonix Ec Tab) 20 mg PO DAILY [facility] Last Admin: 10/08/17 09:03 Dose: 20 mg Quetiapine Fumarate (Seroquel Xr) 400 mg PO Q12 SHAYLA Last Admin: 10/08/17 09:03 Dose: 400 mg Sertraline HCl (Zoloft) 100 mg PO HS [facility] Last Admin: 10/07/17 22:19 Dose: 100 mg Tramadol HCl (Ultram) 50 mg PO Q6 PRN PRN Reason: Pain, moderate (4-7) Last Admin: 10/08/17 17:57 Dose: 50 mg Trazodone HCl (Desyrel) 150 mg PO HS [facility] Last Admin: 10/07/17 22:19 Dose: 150 mg - Labs Labs: 10/06/17 16:30 10/06/17 16:30 PT 11.5 SECONDS (9.7-12.2) 10/04/17 22:36 INR 1.1 10/04/17 22:36 APTT 38 SECONDS (21-34) H 10/04/17 22:36 Assessment and Plan (1) COPD exacerbation Status: Acute (2) Tracheostomy dependence Status: Acute (3) Anemia Status: Acute (4) COPD (chronic obstructive pulmonary disease) Status: Acute (5) Steroid-induced hyperglycemia Status: Acute
[2017-10-08] MEDS: (Lantus) Insulin Glargine, Recombinant SC SCH (21:58)
[2017-10-09] MEDS: Piperacill/Tazo 3.375gm in Dex 3.375 GM/50 ML BAG IVPB SCH ×4 (00:19→17:32)
[2017-10-09] MEDS: Acetylcysteine 20% Inhal Soln (4ml) INH SCH ×4 (01:11→15:44)
[2017-10-09] MEDS: Albuterol 0.083% Inhal Sol (2.5 mg/3 mL) UD IH SCH ×3 (01:12→15:44)
[2017-10-09] MEDS: (Novolin R) Insulin Human Regular 100 units/ml vial SC SCH ×4 (07:39→21:40)
--- NOTE | 2017-10-09 09:36 | PN ---
Copied To: Ad Khan MD Attending MD: Ad Khan MD DATE: 10/08/2017 SUBJECTIVE: The patient is still coughing, congested and she is complaining of lot of sputum production. Patient is afebrile. Patient has been wheezing. She has trach tube and she is on IV Zosyn. Sputum culture is pending. PHYSICAL EXAMINATION: LUNGS: Bilateral rales and rhonchi. CARDIOVASCULAR: S1, S2, regular. ABDOMEN: Soft. ASSESSMENT: 1. Acute bronchitis. 2. Exacerbation of asthma. 3. Type 2 diabetes. 4. Hypertension. PLAN: Patient in the past has failed a trial of removal of tracheostomy. So patient will stay on tracheostomy, antibiotics, and I will give her dose of Solu-Medrol considering her sugars, and will monitor the patient. Ad Khan MD
[2017-10-09] MEDS: Pantoprazole 20 mg EC Tab PO SCH (10:13)
[2017-10-09] MEDS: QUEtiapine 200 mg XR Tab PO SCH ×2 (10:13→21:52)
[2017-10-09] MEDS: Enoxaparin 40 mg Syringe SC SCH (10:14)
[2017-10-09] MEDS: Azithromycin 500 MG in Sodium Chloride 0.9% 250 ML IVPB SCH (16:18)
--- NOTE | 2017-10-09 17:40 | CP.PCM.PN ---
Subjective - Date & Time of Evaluation Date of Evaluation: 10/09/17 Time of Evaluation: 10:30 - Subjective Subjective: patient seen and examined Appears congested Increased tracheal secretions Afebrile Complaining of cough and shortness of breath Continue antibiotics per ID Nebulizer treatment and steroids Objective - Vital Signs/Intake and Output Vital Signs (last 24 hours): Temp Pulse Resp BP Pulse Ox 98.8 F 76 20 142/79 98 10/09/17 16:00 10/09/17 16:00 10/09/17 16:00 10/09/17 16:00 10/09/17 16:00 - Medications Medications: Current Medications Acetaminophen (Tylenol 325mg Tab) 650 mg PO Q4 PRN PRN Reason: Pain, Mild (1-3) Last Admin: 10/05/17 17:30 Dose: 650 mg Acetylcysteine (Acetylcysteine 20%) 4 ml INH RQ6 [facility] Last Admin: 10/09/17 15:44 Dose: 4 ml Albuterol Sulfate (Albuterol 0.083% Inhal Liz (2.5 Mg/3 Ml) Ud) 2.5 mg IH RQ8 [facility] Last Admin: 10/09/17 15:44 Dose: 2.5 mg Enoxaparin Sodium (Lovenox) 40 mg SC DAILY [facility] Last Admin: 10/09/17 10:14 Dose: 40 mg Gabapentin (Neurontin) 800 mg PO TID [facility] Last Admin: 10/09/17 17:33 Dose: 800 mg Guaifenesin (Robitussin) 200 mg PO Q4H PRN PRN Reason: Cough and congestion Last Admin: 10/06/17 10:49 Dose: 200 mg Piperacillin Sod/Tazobactam Sod (Zosyn 3.375 Gm Iv Premix) 3.375 gm in 50 mls @ 100 mls/hr IVPB Q6H [facility] PRN Reason: Protocol Last Admin: 10/09/17 17:32 Dose: 100 mls/hr Azithromycin 500 mg/ Sodium (Chloride) 250 mls @ 167 mls/hr IVPB Q24H [facility] PRN Reason: Protocol Last Admin: 10/09/17 16:18 Dose: 167 mls/hr Insulin Glargine (Lantus) 30 unit SC HS [facility] Last Admin: 10/08/17 21:58 Dose: 30 unit Insulin Human Regular (Novolin R) 0 unit SC ACHS [facility] PRN Reason: Protocol Last Admin: 10/09/17 17:32 Dose: 2 units Lorazepam (Ativan) 0.5 mg PO BID [facility] Last Admin: 10/09/17 17:33 Dose: 0.5 mg Methylprednisolone (Solu-Medrol) 40 mg IVP Q12H [facility] Montelukast Sodium (Singulair) 10 mg PO HS [facility] Last Admin: 10/08/17 22:00 Dose: 10 mg Pantoprazole Sodium (Protonix Ec Tab) 20 mg PO DAILY [facility] Last Admin: 10/09/17 10:13 Dose: 20 mg Quetiapine Fumarate (Seroquel Xr) 400 mg PO Q12 [facility] Last Admin: 10/09/17 10:13 Dose: 400 mg Sertraline HCl (Zoloft) 100 mg PO HS [facility] Last Admin: 10/08/17 21:58 Dose: 100 mg Tramadol HCl (Ultram) 50 mg PO Q6 PRN PRN Reason: Pain, moderate (4-7) Last Admin: 10/09/17 10:14 Dose: 50 mg Trazodone HCl (Desyrel) 150 mg PO HS [facility] Last Admin: 10/08/17 21:58 Dose: 150 mg - Labs Labs: 10/06/17 16:30 10/06/17 16:30 PT 11.5 SECONDS (9.7-12.2) 10/04/17 22:36 INR 1.1 10/04/17 22:36 APTT 38 SECONDS (21-34) H 10/04/17 22:36 Assessment and Plan (1) COPD exacerbation Status: Acute (2) Tracheostomy dependence Status: Acute (3) Healthcare-associated pneumonia Status: Acute
[2017-10-09] MEDS: MethylPREDNISolone 40 mg Vial IVP SCH (19:14)
[2017-10-09] MEDS: (Lantus) Insulin Glargine, Recombinant SC SCH (21:52)
--- NOTE | 2017-10-09 23:44 | CP.PCM.PN ---
Objective - Vital Signs/Intake and Output Vital Signs (last 24 hours): Temp Pulse Resp BP Pulse Ox 98.8 F 76 20 142/79 98 10/09/17 16:00 10/09/17 16:00 10/09/17 16:00 10/09/17 16:00 10/09/17 16:00 - Medications Medications: Current Medications Acetaminophen (Tylenol 325mg Tab) 650 mg PO Q4 PRN PRN Reason: Pain, Mild (1-3) Last Admin: 10/05/17 17:30 Dose: 650 mg Acetylcysteine (Acetylcysteine 20%) 4 ml INH RQ6 [facility] Last Admin: 10/09/17 15:44 Dose: 4 ml Albuterol Sulfate (Albuterol 0.083% Inhal Liz (2.5 Mg/3 Ml) Ud) 2.5 mg IH RQ8 [facility] Last Admin: 10/09/17 15:44 Dose: 2.5 mg Enoxaparin Sodium (Lovenox) 40 mg SC DAILY [facility] Last Admin: 10/09/17 10:14 Dose: 40 mg Gabapentin (Neurontin) 800 mg PO TID [facility] Last Admin: 10/09/17 17:33 Dose: 800 mg Guaifenesin (Robitussin) 200 mg PO Q4H PRN PRN Reason: Cough and congestion Last Admin: 10/06/17 10:49 Dose: 200 mg Piperacillin Sod/Tazobactam Sod (Zosyn 3.375 Gm Iv Premix) 3.375 gm in 50 mls @ 100 mls/hr IVPB Q6H [facility] PRN Reason: Protocol Last Admin: 10/09/17 17:32 Dose: 100 mls/hr Azithromycin 500 mg/ Sodium (Chloride) 250 mls @ 167 mls/hr IVPB Q24H [facility] PRN Reason: Protocol Last Admin: 10/09/17 16:18 Dose: 167 mls/hr Insulin Glargine (Lantus) 30 unit SC HS [facility] Last Admin: 10/09/17 21:52 Dose: 30 unit Insulin Human Regular (Novolin R) 0 unit SC ACHS [facility] PRN Reason: Protocol Last Admin: 10/09/17 21:40 Dose: Not Given Lorazepam (Ativan) 0.5 mg PO BID [facility] Last Admin: 10/09/17 17:33 Dose: 0.5 mg Methylprednisolone (Solu-Medrol) 40 mg IVP Q12H [facility] Last Admin: 10/09/17 19:14 Dose: 40 mg Montelukast Sodium (Singulair) 10 mg PO HS [facility] Last Admin: 10/09/17 21:52 Dose: 10 mg Pantoprazole Sodium (Protonix Ec Tab) 20 mg PO DAILY [facility] Last Admin: 10/09/17 10:13 Dose: 20 mg Quetiapine Fumarate (Seroquel Xr) 400 mg PO Q12 [facility] Last Admin: 10/09/17 21:52 Dose: 400 mg Sertraline HCl (Zoloft) 100 mg PO HS [facility] Last Admin: 10/09/17 21:51 Dose: 100 mg Tramadol HCl (Ultram) 50 mg PO Q6 PRN PRN Reason: Pain, moderate (4-7) Last Admin: 10/09/17 19:11 Dose: 50 mg Trazodone HCl (Desyrel) 150 mg PO [facility] Last Admin: 10/09/17 21:51 Dose: 150 mg - Labs Labs: 10/06/17 16:30 10/06/17 16:30 PT 11.5 SECONDS (9.7-12.2) 10/04/17 22:36 INR 1.1 10/04/17 22:36 APTT 38 SECONDS (21-34) H 10/04/17 22:36 Assessment and Plan (1) COPD exacerbation Status: Acute (2) Tracheostomy dependence Status: Acute (3) Anemia Status: Acute (4) COPD (chronic obstructive pulmonary disease) Status: Acute (5) Steroid-induced hyperglycemia Status: Acute
[2017-10-10] MEDS: Albuterol 0.083% Inhal Sol (2.5 mg/3 mL) UD IH SCH ×3 (00:07→15:54)
[2017-10-10] MEDS: Piperacill/Tazo 3.375gm in Dex 3.375 GM/50 ML BAG IVPB SCH ×5 (00:29→23:51)
[2017-10-10] MEDS: Acetylcysteine 20% Inhal Soln (4ml) INH SCH ×4 (02:52→19:00)
[2017-10-10] MEDS: (Novolin R) Insulin Human Regular 100 units/ml vial SC SCH ×4 (09:01→21:39)
[2017-10-10] MEDS: MethylPREDNISolone 40 mg Vial IVP SCH ×2 (09:01→20:06)
[2017-10-10] MEDS: Enoxaparin 40 mg Syringe SC SCH (09:12)
[2017-10-10] MEDS: QUEtiapine 200 mg XR Tab PO SCH ×2 (09:12→21:28)
[2017-10-10] MEDS: Pantoprazole 20 mg EC Tab PO SCH (09:13)
--- NOTE | 2017-10-10 09:18 | PN ---
Copied To: Ad Khan MD Attending MD: Ad Khan MD DATE: 10/09/2017 SUBJECTIVE: Patient is coughing, she is congested. She is having hard time bringing the secretions up. She has extensive wheezing. She is in distress. She cannot speak. PHYSICAL EXAMINATION: VITAL SIGNS: Blood pressure 142/79, pulse 73, respiratory rate 20, temperature 98.8. LUNGS: Bilateral inspiratory and expiratory rhonchi, decreased air entry. CARDIOVASCULAR SYSTEM: S1 and S2 regular. ABDOMEN: Soft. ASSESSMENT: 1. Exacerbation of bronchial asthma. 2. Acute tracheobronchitis, rule out pneumonia. 3. Type 2 diabetes. 4. Depression. PLAN: Add Zithromax , Solu-Medrol. Monitor patient per Pulmonary. Ad Khan MD
[2017-10-10 11:20] LABS: BASO # 0.1 K/uL (0.0-0.2); BASO % 0.5 % (0.0-2.0); EOS % 0.1 % (0.0-4.0); LYMPH % 10.5 % (20.0-40.0); MEAN CELL VOLUME 79.9 fL (81.0-99.0); MEAN CORPUSCULAR HEMOGLOBIN 26.4 pg (27.0-31.0); MEAN PLATELET VOLUME 8.3 fL (7.2-11.7); MONO # 0.4 K/uL (0.0-0.8); NEUT # 8.3 K/uL (1.8-7.0); NEUT % 84.9 % (50.0-75.0); RBC 4.16 Mil/uL (3.80-5.20); RED CELL DISTRIBUTION WIDTH 13.7 % (11.5-14.5); WHITE BLOOD COUNT 9.8 K/uL (4.8-10.8)
[2017-10-10 11:34] LABS: BLOOD UREA NITROGEN 14 mg/dL (7-17); CALCIUM 9.1 mg/dl (8.6-10.4); GFR AFRICAN-AMERICAN > 60; GFR NON-AFRICAN AMERICAN > 60
[2017-10-10] MEDS: Azithromycin 500 MG in Sodium Chloride 0.9% 250 ML IVPB SCH (16:13)
--- NOTE | 2017-10-10 17:42 | CP.PCM.PN ---
Subjective - Date & Time of Evaluation Date of Evaluation: 10/10/17 Time of Evaluation: 08:00 - Subjective Subjective: afeb c/o weakness alert nad Objective - Vital Signs/Intake and Output Vital Signs (last 24 hours): Temp Pulse Resp BP Pulse Ox 98.8 F 71 20 150/83 98 10/10/17 16:20 10/10/17 16:20 10/10/17 16:20 10/10/17 16:20 10/10/17 16:20 Intake and Output: 10/10/17 10/10/17 06:59 18:59 Intake Total 500 Output Total 700 Balance -200 - Medications Medications: Current Medications Acetaminophen (Tylenol 325mg Tab) 650 mg PO Q4 PRN PRN Reason: Pain, Mild (1-3) Last Admin: 10/05/17 17:30 Dose: 650 mg Acetylcysteine (Acetylcysteine 20%) 4 ml INH RQ6 [facility] Last Admin: 10/10/17 13:54 Dose: Not Given Albuterol Sulfate (Albuterol 0.083% Inhal Liz (2.5 Mg/3 Ml) Ud) 2.5 mg IH RQ8 [facility] Last Admin: 10/10/17 15:54 Dose: 2.5 mg Enoxaparin Sodium (Lovenox) 40 mg SC DAILY [facility] Last Admin: 10/10/17 09:12 Dose: 40 mg Gabapentin (Neurontin) 800 mg PO TID [facility] Last Admin: 10/10/17 13:24 Dose: 800 mg Guaifenesin (Robitussin) 200 mg PO Q4H PRN PRN Reason: Cough and congestion Last Admin: 10/06/17 10:49 Dose: 200 mg Piperacillin Sod/Tazobactam Sod (Zosyn 3.375 Gm Iv Premix) 3.375 gm in 50 mls @ 100 mls/hr IVPB Q6H [facility] PRN Reason: Protocol Last Admin: 10/10/17 13:24 Dose: 100 mls/hr Azithromycin 500 mg/ Sodium (Chloride) 250 mls @ 167 mls/hr IVPB Q24H [facility] PRN Reason: Protocol Last Admin: 10/10/17 16:13 Dose: 167 mls/hr Insulin Glargine (Lantus) 30 unit SC HS [facility] Last Admin: 10/09/17 21:52 Dose: 30 unit Insulin Human Regular (Novolin R) 0 unit SC ACHS [facility] PRN Reason: Protocol Last Admin: 10/10/17 12:50 Dose: 6 units Lorazepam (Ativan) 0.5 mg PO BID [facility] Last Admin: 10/10/17 09:13 Dose: 0.5 mg Methylprednisolone (Solu-Medrol) 40 mg IVP Q12H [facility] Last Admin: 10/10/17 09:01 Dose: 40 mg Montelukast Sodium (Singulair) 10 mg PO [facility] Last Admin: 10/09/17 21:52 Dose: 10 mg Pantoprazole Sodium (Protonix Ec Tab) 20 mg PO DAILY [facility] Last Admin: 10/10/17 09:13 Dose: 20 mg Quetiapine Fumarate (Seroquel Xr) 400 mg PO Q12 [facility] Last Admin: 10/10/17 09:12 Dose: 400 mg Sertraline HCl (Zoloft) 100 mg PO [facility] Last Admin: 10/09/17 21:51 Dose: 100 mg Tramadol HCl (Ultram) 50 mg PO Q6 PRN PRN Reason: Pain, moderate (4-7) Last Admin: 10/10/17 16:13 Dose: 50 mg Trazodone HCl (Desyrel) 150 mg PO [facility] Last Admin: 10/09/17 21:51 Dose: 150 mg - Labs Labs: 10/10/17 11:16 10/10/17 11:16 PT 11.5 SECONDS (9.7-12.2) 10/04/17 22:36 INR 1.1 10/04/17 22:36 APTT 38 SECONDS (21-34) H 10/04/17 22:36 - Constitutional Appears: Non-toxic, Chronically Ill - Head Exam Head Exam: NORMOCEPHALIC - Eye Exam Eye Exam: PERRL - ENT Exam ENT Exam: Mucous Membranes Dry Additional comments: + trach collar moderate secretions - Neck Exam Neck Exam: absent: Lymphadenopathy - Respiratory Exam Respiratory Exam: Decreased Breath Sounds - Cardiovascular Exam Cardiovascular Exam: REGULAR RHYTHM - GI/Abdominal Exam GI & Abdominal Exam: Distended, Soft - Extremities Exam Extremities Exam: Pedal Edema - Back Exam Back Exam: absent: CVA tenderness (L), CVA tenderness (R) - Neurological Exam Neurological Exam: Alert, Awake, Oriented x3 - Psychiatric Exam Psychiatric exam: Depressed - Skin Skin Exam: Dry - Additional Findings Additional findings: severe exac COPD/ resp insuff sputum c/s pending Assessment and Plan (1) COPD exacerbation Status: Acute (2) Mucus plugging of bronchi Status: Acute (3) Tracheostomy dependence Status: Acute (4) COPD (chronic obstructive pulmonary disease) Status: Acute (5) Dyspnea Status: Acute (6) Tracheobronchitis Status: Acute (7) Diabetes mellitus, insulin dependent (IDDM), uncontrolled Status: Chronic (8) Morbid obesity Status: Chronic
[2017-10-10] MEDS: (Lantus) Insulin Glargine, Recombinant SC SCH (21:28)
--- NOTE | 2017-10-10 23:11 | CP.PCM.PN ---
Objective - Vital Signs/Intake and Output Vital Signs (last 24 hours): Temp Pulse Resp BP Pulse Ox 98.8 F 71 20 150/83 98 10/10/17 16:20 10/10/17 16:20 10/10/17 16:20 10/10/17 16:20 10/10/17 16:20 - Medications Medications: Current Medications Acetaminophen (Tylenol 325mg Tab) 650 mg PO Q4 PRN PRN Reason: Pain, Mild (1-3) Last Admin: 10/05/17 17:30 Dose: 650 mg Acetylcysteine (Acetylcysteine 20%) 4 ml INH RQ6 [facility] Last Admin: 10/10/17 13:54 Dose: Not Given Albuterol Sulfate (Albuterol 0.083% Inhal Liz (2.5 Mg/3 Ml) Ud) 2.5 mg IH RQ8 [facility] Last Admin: 10/10/17 15:54 Dose: 2.5 mg Enoxaparin Sodium (Lovenox) 40 mg SC DAILY [facility] Last Admin: 10/10/17 09:12 Dose: 40 mg Gabapentin (Neurontin) 800 mg PO TID [facility] Last Admin: 10/10/17 17:40 Dose: 800 mg Guaifenesin (Robitussin) 200 mg PO Q4H PRN PRN Reason: Cough and congestion Last Admin: 10/06/17 10:49 Dose: 200 mg Piperacillin Sod/Tazobactam Sod (Zosyn 3.375 Gm Iv Premix) 3.375 gm in 50 mls @ 100 mls/hr IVPB Q6H [facility] PRN Reason: Protocol Last Admin: 10/10/17 18:57 Dose: 100 mls/hr Azithromycin 500 mg/ Sodium (Chloride) 250 mls @ 167 mls/hr IVPB Q24H [facility] PRN Reason: Protocol Last Admin: 10/10/17 16:13 Dose: 167 mls/hr Insulin Glargine (Lantus) 30 unit SC HS [facility] Last Admin: 10/10/17 21:28 Dose: 30 unit Insulin Human Regular (Novolin R) 0 unit SC ACHS [facility] PRN Reason: Protocol Last Admin: 10/10/17 21:39 Dose: Not Given Lorazepam (Ativan) 0.5 mg PO BID [facility] Last Admin: 10/10/17 17:40 Dose: 0.5 mg Methylprednisolone (Solu-Medrol) 40 mg IVP Q12H [facility] Last Admin: 10/10/17 20:06 Dose: 40 mg Montelukast Sodium (Singulair) 10 mg PO HS [facility] Last Admin: 10/10/17 21:25 Dose: 10 mg Nystatin (Nystop Topical Powder) 1 applic TOP BID [facility] Pantoprazole Sodium (Protonix Ec Tab) 20 mg PO DAILY [facility] Last Admin: 10/10/17 09:13 Dose: 20 mg Quetiapine Fumarate (Seroquel Xr) 400 mg PO Q12 [facility] Last Admin: 10/10/17 21:28 Dose: 400 mg Sertraline HCl (Zoloft) 100 mg PO HS [facility] Last Admin: 10/10/17 21:26 Dose: 100 mg Tramadol HCl (Ultram) 50 mg PO Q6 PRN PRN Reason: Pain, moderate (4-7) Last Admin: 10/10/17 16:13 Dose: 50 mg Trazodone HCl (Desyrel) 150 mg PO HS [facility] Last Admin: 10/10/17 21:25 Dose: 150 mg - Labs Labs: 10/10/17 11:16 10/10/17 11:16 PT 11.5 SECONDS (9.7-12.2) 10/04/17 22:36 INR 1.1 10/04/17 22:36 APTT 38 SECONDS (21-34) H 10/04/17 22:36 Assessment and Plan (1) COPD exacerbation Status: Acute (2) Tracheostomy dependence Status: Acute (3) Anemia Status: Acute (4) COPD (chronic obstructive pulmonary disease) Status: Acute (5) Steroid-induced hyperglycemia Status: Acute
[2017-10-11] MEDS: Albuterol 0.083% Inhal Sol (2.5 mg/3 mL) UD IH SCH ×3 (01:22→15:58)
[2017-10-11] MEDS: Acetylcysteine 20% Inhal Soln (4ml) INH SCH ×4 (01:22→19:53)
[2017-10-11] MEDS: Piperacill/Tazo 3.375gm in Dex 3.375 GM/50 ML BAG IVPB SCH ×3 (05:03→17:42)
--- NOTE | 2017-10-11 05:30 | PN ---
Copied To: Ad Khan MD Attending MD: Ad Khan MD DATE: 10/10/2017 SUBJECTIVE: The patient is complaining of pain . The patient is with less cough, less congested, less short of breath. The patient is on antibiotics. The patient received Solu-Medrol. She denies any fever, chills, or rigors. No nausea or vomiting. PHYSICAL EXAMINATION: VITAL SIGNS: Blood pressure 150/83, pulse 71, respiratory rate 20, temperature 98.8. LUNGS: Bilaterally decreased air entry. Bilateral rhonchi. Decreased air entry. CARDIOVASCULAR SYSTEM: S1 and S2 are regular. ABDOMEN: Soft. ASSESSMENT: 1. Exacerbation of bronchial asthma. 2. Tracheobronchitis. 3. Type 2 diabetes. 4. Hypertension. 5. Morbid obesity. PLAN: Nebulizer. Solu-Medrol. Taper steroid. Continue antibiotics. Monitor the patient. Ad Khan MD
[2017-10-11] MEDS: (Novolin R) Insulin Human Regular 100 units/ml vial SC SCH ×4 (08:30→22:12)
[2017-10-11] MEDS: MethylPREDNISolone 40 mg Vial IVP SCH ×2 (09:00→19:54)
[2017-10-11] MEDS: Enoxaparin 40 mg Syringe SC SCH (09:41)
[2017-10-11] MEDS: Pantoprazole 20 mg EC Tab PO SCH (09:42)
[2017-10-11] MEDS: QUEtiapine 200 mg XR Tab PO SCH ×2 (09:42→23:06)
[2017-10-11] MEDS: (Lantus) Insulin Glargine, Recombinant SC SCH (22:12)
--- NOTE | 2017-10-11 23:25 | CP.PCM.PN ---
Objective - Vital Signs/Intake and Output Vital Signs (last 24 hours): Temp Pulse Resp BP Pulse Ox 98.5 F 92 H 20 116/62 94 L 10/11/17 19:40 10/11/17 19:40 10/11/17 16:26 10/11/17 19:40 10/11/17 16:26 Intake and Output: 10/11/1718 18:59 06:59 Intake Total 300 Balance 300 - Medications Medications: Current Medications Acetaminophen (Tylenol 325mg Tab) 650 mg PO Q4 PRN PRN Reason: Pain, Mild (1-3) Last Admin: 10/05/17 17:30 Dose: 650 mg Acetylcysteine (Acetylcysteine 20%) 4 ml INH RQ6 [facility] Last Admin: 10/11/17 19:53 Dose: Not Given Albuterol Sulfate (Albuterol 0.083% Inhal Liz (2.5 Mg/3 Ml) Ud) 2.5 mg IH RQ8 [facility] Last Admin: 10/11/17 15:58 Dose: 2.5 mg Enoxaparin Sodium (Lovenox) 40 mg SC DAILY [facility] Last Admin: 10/11/17 09:41 Dose: 40 mg Gabapentin (Neurontin) 800 mg PO TID [facility] Last Admin: 10/11/17 17:43 Dose: 800 mg Guaifenesin (Robitussin) 200 mg PO Q4H PRN PRN Reason: Cough and congestion Last Admin: 10/06/17 10:49 Dose: 200 mg Piperacillin Sod/Tazobactam Sod (Zosyn 3.375 Gm Iv Premix) 3.375 gm in 50 mls @ 100 mls/hr IVPB Q6H [facility] PRN Reason: Protocol Last Admin: 10/11/17 17:42 Dose: 100 mls/hr Insulin Glargine (Lantus) 30 unit SC HS [facility] Last Admin: 10/11/17 22:12 Dose: 30 unit Insulin Human Regular (Novolin R) 0 unit SC ACHS [facility] PRN Reason: Protocol Last Admin: 10/11/17 22:12 Dose: 2 units Lorazepam (Ativan) 0.5 mg PO BID [facility] Last Admin: 10/11/17 17:43 Dose: 0.5 mg Methylprednisolone (Solu-Medrol) 40 mg IVP Q12H [facility] Last Admin: 10/11/17 19:54 Dose: 40 mg Montelukast Sodium (Singulair) 10 mg PO HS [facility] Last Admin: 10/11/17 22:11 Dose: 10 mg Nystatin (Nystop Topical Powder) 1 applic TOP BID [facility] Last Admin: 10/11/17 17:43 Dose: 1 applic Pantoprazole Sodium (Protonix Ec Tab) 20 mg PO DAILY [facility] Last Admin: 10/11/17 09:42 Dose: 20 mg Quetiapine Fumarate (Seroquel Xr) 400 mg PO Q12 [facility] Last Admin: 10/11/17 23:06 Dose: 400 mg Sertraline HCl (Zoloft) 100 mg PO HS [facility] Last Admin: 10/11/17 22:11 Dose: 100 mg Tramadol HCl (Ultram) 50 mg PO Q6 PRN PRN Reason: Pain, moderate (4-7) Last Admin: 10/11/17 19:53 Dose: 50 mg Trazodone HCl (Desyrel) 150 mg PO [facility] Last Admin: 10/11/17 22:11 Dose: 150 mg - Labs Labs: 10/10/17 11:16 10/10/17 11:16 PT 11.5 SECONDS (9.7-12.2) 10/04/17 22:36 INR 1.1 10/04/17 22:36 APTT 38 SECONDS (21-34) H 10/04/17 22:36 Assessment and Plan (1) COPD exacerbation Status: Acute (2) Tracheostomy dependence Status: Acute (3) Anemia Status: Acute (4) COPD (chronic obstructive pulmonary disease) Status: Acute (5) Steroid-induced hyperglycemia Status: Acute
[2017-10-12] MEDS: Piperacill/Tazo 3.375gm in Dex 3.375 GM/50 ML BAG IVPB SCH ×5 (01:00→23:51)
[2017-10-12] MEDS: Albuterol 0.083% Inhal Sol (2.5 mg/3 mL) UD IH SCH ×4 (01:32→20:38)
[2017-10-12] MEDS: Acetylcysteine 20% Inhal Soln (4ml) INH SCH ×3 (01:32→20:38)
--- NOTE | 2017-10-12 05:50 | PN ---
Copied To: Ad Khan MD Attending MD: Ad Khan MD DATE: 10/11/2017 SUBJECTIVE: The patient is coughing, congested. She is afebrile. She has Pseudomonas in the sputum, sensitive to Cipro. The patient is less short of breath, less cough, less wheezing. She has some back pain. PHYSICAL EXAMINATION: VITAL SIGNS: Blood pressure 116/62, pulse 92, respiratory rate 20, temperature 98.5. LUNGS: Bilateral inspiratory and expiratory rhonchi. Decreased air entry. CARDIOVASCULAR SYSTEM: S1 and S2 are regular. ABDOMEN: Soft. ASSESSMENT: 1. Acute exacerbation of bronchial asthma. 2. Tracheobronchitis with Pseudomonas. 3. Type 2 diabetes. PLAN: Continue current medication, Solu-Medrol, oxygen, nebulizer and continue antibiotics. Monitor the patient. Ad Khan MD
[2017-10-12] MEDS: MethylPREDNISolone 40 mg Vial IVP SCH ×2 (08:00→19:52)
[2017-10-12] MEDS: (Novolin R) Insulin Human Regular 100 units/ml vial SC SCH ×4 (08:28→21:46)
[2017-10-12] MEDS: Enoxaparin 40 mg Syringe SC SCH (10:34)
[2017-10-12] MEDS: Pantoprazole 20 mg EC Tab PO SCH (10:34)
[2017-10-12] MEDS: QUEtiapine 200 mg XR Tab PO SCH ×2 (10:35→21:49)
[2017-10-12 11:06] LABS: BASO # 0.1 K/uL (0.0-0.2); BASO % 0.5 % (0.0-2.0); EOS # 0.1 K/uL (0.0-0.7); EOS % 0.5 % (0.0-4.0); HEMOGLOBIN 11.7 g/dL (11.0-16.0); LYMPH # 2.1 K/uL (1.0-4.3); LYMPH % 17.6 % (20.0-40.0); MEAN CELL VOLUME 80.2 fL (81.0-99.0); MEAN CORPUSCULAR HEMOGLOBIN 25.5 pg (27.0-31.0); MEAN CORPUSCULAR HGB CONC 31.8 g/dL (33.0-37.0); MEAN PLATELET VOLUME 8.4 fL (7.2-11.7); MONO # 0.8 K/uL (0.0-0.8); NEUT # 8.7 K/uL (1.8-7.0); NEUT % 74.4 % (50.0-75.0); NRBC % 0.1 % (0.0-2.0); RBC 4.58 Mil/uL (3.80-5.20); RED CELL DISTRIBUTION WIDTH 14.3 % (11.5-14.5); WHITE BLOOD COUNT 11.7 K/uL (4.8-10.8)
[2017-10-12 11:17] LABS: ALB/GLOB RATIO 0.9 (1.0-2.1); ALT/SGPT 19 U/L (9-52); AST/SGOT 11 U/L (14-36); BLOOD UREA NITROGEN 21 mg/dL (7-17); CALCIUM 9.6 mg/dl (8.6-10.4); GFR AFRICAN-AMERICAN > 60; GFR NON-AFRICAN AMERICAN 51
[2017-10-12 16:58] VITALS: RESP 20
--- NOTE | 2017-10-12 18:08 | CP.PCM.PN ---
Subjective - Date & Time of Evaluation Date of Evaluation: 10/12/17 Time of Evaluation: 09:00 - Subjective Subjective: awake alert less sob less cough cultures noted Objective - Vital Signs/Intake and Output Vital Signs (last 24 hours): Temp Pulse Resp BP Pulse Ox 98.6 F 77 20 128/81 96 10/12/17 15:20 10/12/17 15:20 10/12/17 15:20 10/12/17 15:20 10/12/17 15:20 Intake and Output: 10/12/17 10/12/17 06:59 18:59 Intake Total 300 400 Balance 300 400 - Medications Medications: Current Medications Acetaminophen (Tylenol 325mg Tab) 650 mg PO Q4 PRN PRN Reason: Pain, Mild (1-3) Last Admin: 10/05/17 17:30 Dose: 650 mg Acetylcysteine (Acetylcysteine 20%) 4 ml INH RQ6 [facility] Last Admin: 10/12/17 09:23 Dose: 4 ml Albuterol Sulfate (Albuterol 0.083% Inhal Liz (2.5 Mg/3 Ml) Ud) 2.5 mg IH RQ8 [facility] Last Admin: 10/12/17 16:33 Dose: 2.5 mg Enoxaparin Sodium (Lovenox) 40 mg SC DAILY [facility] Last Admin: 10/12/17 10:34 Dose: 40 mg Gabapentin (Neurontin) 800 mg PO TID [facility] Last Admin: 10/12/17 17:58 Dose: 800 mg Guaifenesin (Robitussin) 200 mg PO Q4H PRN PRN Reason: Cough and congestion Last Admin: 10/06/17 10:49 Dose: 200 mg Piperacillin Sod/Tazobactam Sod (Zosyn 3.375 Gm Iv Premix) 3.375 gm in 50 mls @ 100 mls/hr IVPB Q6H [facility] PRN Reason: Protocol Last Admin: 10/12/17 17:57 Dose: 100 mls/hr Insulin Glargine (Lantus) 30 unit SC HS [facility] Last Admin: 10/11/17 22:12 Dose: 30 unit Insulin Human Regular (Novolin R) 0 unit SC ACHS [facility] PRN Reason: Protocol Last Admin: 10/12/17 17:03 Dose: 10 units Lorazepam (Ativan) 0.5 mg PO BID [facility] Last Admin: 10/12/17 17:58 Dose: 0.5 mg Methylprednisolone (Solu-Medrol) 40 mg IVP Q12H [facility] Last Admin: 10/12/17 08:00 Dose: 40 mg Montelukast Sodium (Singulair) 10 mg PO [facility] Last Admin: 10/11/17 22:11 Dose: 10 mg Nystatin (Nystop Topical Powder) 1 applic TOP BID [facility] Last Admin: 10/12/17 17:58 Dose: 1 applic Pantoprazole Sodium (Protonix Ec Tab) 20 mg PO DAILY [facility] Last Admin: 10/12/17 10:34 Dose: 20 mg Quetiapine Fumarate (Seroquel Xr) 400 mg PO Q12 [facility] Last Admin: 10/12/17 10:35 Dose: 400 mg Sertraline HCl (Zoloft) 100 mg PO [facility] Last Admin: 10/11/17 22:11 Dose: 100 mg Tramadol HCl (Ultram) 50 mg PO Q6 PRN PRN Reason: Pain, moderate (4-7) Last Admin: 10/12/17 10:45 Dose: 50 mg Trazodone HCl (Desyrel) 150 mg PO [facility] Last Admin: 10/11/17 22:11 Dose: 150 mg - Labs Labs: 10/12/17 10:54 10/12/17 10:54 PT 11.5 SECONDS (9.7-12.2) 10/04/17 22:36 INR 1.1 10/04/17 22:36 APTT 38 SECONDS (21-34) H 10/04/17 22:36 - Constitutional Appears: Non-toxic, Chronically Ill - Head Exam Head Exam: NORMOCEPHALIC - Eye Exam Eye Exam: absent: Scleral icterus - ENT Exam ENT Exam: Mucous Membranes Dry - Neck Exam Neck Exam: absent: Lymphadenopathy - Respiratory Exam Respiratory Exam: Decreased Breath Sounds - Cardiovascular Exam Cardiovascular Exam: REGULAR RHYTHM - GI/Abdominal Exam GI & Abdominal Exam: Distended, Soft - Rectal Exam Rectal Exam: Deferred - Exam Exam: NORMAL INSPECTION Assessment and Plan (1) COPD exacerbation Status: Acute (2) Mucus plugging of bronchi Status: Acute (3) Tracheostomy dependence Status: Acute (4) COPD (chronic obstructive pulmonary disease) Status: Acute (5) Dyspnea Status: Acute (6) Tracheobronchitis Status: Acute (7) Diabetes mellitus, insulin dependent (IDDM), uncontrolled Status: Chronic (8) Morbid obesity Status: Chronic
[2017-10-12] MEDS: (Lantus) Insulin Glargine, Recombinant SC SCH (21:47)
--- NOTE | 2017-10-12 23:20 | CP.PCM.PN ---
Objective - Vital Signs/Intake and Output Vital Signs (last 24 hours): Temp Pulse Resp BP Pulse Ox 98.7 F 94 H 20 151/74 H 96 10/12/17 19:25 10/12/17 19:25 10/12/17 15:20 10/12/17 19:25 10/12/17 15:20 Intake and Output: 10/12/17 10/13/17 18:59 06:59 Intake Total 400 Balance 400 - Medications Medications: Current Medications Acetaminophen (Tylenol 325mg Tab) 650 mg PO Q4 PRN PRN Reason: Pain, Mild (1-3) Last Admin: 10/05/17 17:30 Dose: 650 mg Acetylcysteine (Acetylcysteine 20%) 4 ml INH RQ6 [facility] Last Admin: 10/12/17 20:38 Dose: 4 ml Albuterol Sulfate (Albuterol 0.083% Inhal Liz (2.5 Mg/3 Ml) Ud) 2.5 mg IH RQ8 [facility] Last Admin: 10/12/17 20:38 Dose: 2.5 mg Enoxaparin Sodium (Lovenox) 40 mg SC DAILY [facility] Last Admin: 10/12/17 10:34 Dose: 40 mg Gabapentin (Neurontin) 800 mg PO TID [facility] Last Admin: 10/12/17 17:58 Dose: 800 mg Guaifenesin (Robitussin) 200 mg PO Q4H PRN PRN Reason: Cough and congestion Last Admin: 10/06/17 10:49 Dose: 200 mg Piperacillin Sod/Tazobactam Sod (Zosyn 3.375 Gm Iv Premix) 3.375 gm in 50 mls @ 100 mls/hr IVPB Q6H [facility] PRN Reason: Protocol Last Admin: 10/12/17 17:57 Dose: 100 mls/hr Insulin Glargine (Lantus) 30 unit SC HS [facility] Last Admin: 10/12/17 21:47 Dose: 30 unit Insulin Human Regular (Novolin R) 0 unit SC ACHS [facility] PRN Reason: Protocol Last Admin: 10/12/17 21:46 Dose: 3 units Lorazepam (Ativan) 0.5 mg PO BID [facility] Last Admin: 10/12/17 17:58 Dose: 0.5 mg Methylprednisolone (Solu-Medrol) 40 mg IVP Q12H [facility] Last Admin: 10/12/17 19:52 Dose: 40 mg Montelukast Sodium (Singulair) 10 mg PO HS [facility] Last Admin: 10/12/17 21:48 Dose: 10 mg Nystatin (Nystop Topical Powder) 1 applic TOP BID [facility] Last Admin: 10/12/17 17:58 Dose: 1 applic Pantoprazole Sodium (Protonix Ec Tab) 20 mg PO DAILY [facility] Last Admin: 10/12/17 10:34 Dose: 20 mg Quetiapine Fumarate (Seroquel Xr) 400 mg PO Q12 [facility] Last Admin: 10/12/17 21:49 Dose: 400 mg Sertraline HCl (Zoloft) 100 mg PO HS [facility] Last Admin: 10/12/17 21:48 Dose: 100 mg Tramadol HCl (Ultram) 50 mg PO Q6 PRN PRN Reason: Pain, moderate (4-7) Last Admin: 10/12/17 19:56 Dose: 50 mg Trazodone HCl (Desyrel) 150 mg PO [facility] Last Admin: 10/12/17 21:49 Dose: 150 mg - Labs Labs: 10/12/17 10:54 10/12/17 10:54 PT 11.5 SECONDS (9.7-12.2) 10/04/17 22:36 INR 1.1 10/04/17 22:36 APTT 38 SECONDS (21-34) H 10/04/17 22:36 Assessment and Plan (1) COPD exacerbation Status: Acute (2) Tracheostomy dependence Status: Acute (3) Anemia Status: Acute (4) COPD (chronic obstructive pulmonary disease) Status: Acute (5) Steroid-induced hyperglycemia Status: Acute
[2017-10-13] MEDS: Acetylcysteine 20% Inhal Soln (4ml) INH SCH ×2 (01:10→08:45)
[2017-10-13] MEDS: Albuterol 0.083% Inhal Sol (2.5 mg/3 mL) UD IH SCH ×3 (01:11→16:00)
--- NOTE | 2017-10-13 04:45 | PN ---
Copied To: Ad Khan MD Attending MD: Ad Khan MD DATE: 10/12/2017 SUBJECTIVE: The patient has less cough, less shortness of breath, less congestion. No fever. No chills. No nausea, vomiting. PHYSICAL EXAMINATION: VITAL SIGNS: Blood pressure 140/70, pulse 77, respiratory rate 20, temperature 99. LUNGS: Bilateral scattered rales and rhonchi. CVS: S1 and S2 regular. ABDOMEN: Soft. ASSESSMENT: 1. Exacerbation of bronchial asthma. 2. Tracheobronchitis due to Pseudomonas. 3. Type 2 diabetes. 4. Hypertension. PLAN: Continue current medication. Monitor the patient. Ad Khan MD
[2017-10-13] MEDS: Piperacill/Tazo 3.375gm in Dex 3.375 GM/50 ML BAG IVPB SCH ×2 (05:03→12:14)
[2017-10-13] MEDS: MethylPREDNISolone 40 mg Vial IVP SCH (08:15)
[2017-10-13] MEDS: (Novolin R) Insulin Human Regular 100 units/ml vial SC SCH ×2 (08:16→12:15)
[2017-10-13] MEDS: Enoxaparin 40 mg Syringe SC SCH (09:47)
[2017-10-13] MEDS: Pantoprazole 20 mg EC Tab PO SCH (09:54)
[2017-10-13] MEDS: QUEtiapine 200 mg XR Tab PO SCH (10:01)
--- NOTE | 2017-10-13 14:25 | CP.PCM.PN ---
Subjective - Date & Time of Evaluation Date of Evaluation: 10/13/17 Time of Evaluation: 14:25 - Subjective Subjective: PATIENT SEEN AND EXAMINED AT THE BEDSIDE Objective - Vital Signs/Intake and Output Vital Signs (last 24 hours): Temp Pulse Resp BP Pulse Ox 98.1 F 63 20 124/78 98 10/13/17 07:00 10/13/17 07:00 10/13/17 07:00 10/13/17 07:00 10/13/17 07:00 - Medications Medications: Current Medications Acetaminophen (Tylenol 325mg Tab) 650 mg PO Q4 PRN PRN Reason: Pain, Mild (1-3) Last Admin: 10/12/17 23:57 Dose: 650 mg Acetylcysteine (Acetylcysteine 20%) 4 ml INH RQ6 [facility] Last Admin: 10/13/17 08:45 Dose: 4 ml Albuterol Sulfate (Albuterol 0.083% Inhal Liz (2.5 Mg/3 Ml) Ud) 2.5 mg IH RQ8 [facility] Last Admin: 10/13/17 08:45 Dose: 2.5 mg Enoxaparin Sodium (Lovenox) 40 mg SC DAILY [facility] Last Admin: 10/13/17 09:47 Dose: 40 mg Gabapentin (Neurontin) 800 mg PO TID [facility] Last Admin: 10/13/17 13:05 Dose: 800 mg Guaifenesin (Robitussin) 200 mg PO Q4H PRN PRN Reason: Cough and congestion Last Admin: 10/06/17 10:49 Dose: 200 mg Piperacillin Sod/Tazobactam Sod (Zosyn 3.375 Gm Iv Premix) 3.375 gm in 50 mls @ 100 mls/hr IVPB Q6H [facility] PRN Reason: Protocol Last Admin: 10/13/17 12:14 Dose: 100 mls/hr Insulin Glargine (Lantus) 30 unit SC HS [facility] Last Admin: 10/12/17 21:47 Dose: 30 unit Insulin Human Regular (Novolin R) 0 unit SC ACHS [facility] PRN Reason: Protocol Last Admin: 10/13/17 12:15 Dose: 4 units Lorazepam (Ativan) 0.5 mg PO BID [facility] Last Admin: 10/13/17 09:54 Dose: 0.5 mg Methylprednisolone (Solu-Medrol) 40 mg IVP Q12H [facility] Last Admin: 10/13/17 08:15 Dose: 40 mg Montelukast Sodium (Singulair) 10 mg PO HS [facility] Last Admin: 10/12/17 21:48 Dose: 10 mg Nystatin (Nystop Topical Powder) 1 applic TOP BID [facility] Last Admin: 10/13/17 09:48 Dose: 1 applic Pantoprazole Sodium (Protonix Ec Tab) 20 mg PO DAILY [facility] Last Admin: 10/13/17 09:54 Dose: 20 mg Quetiapine Fumarate (Seroquel Xr) 400 mg PO Q12 [facility] Last Admin: 10/13/17 10:01 Dose: 400 mg Sertraline HCl (Zoloft) 100 mg PO HS [facility] Last Admin: 10/12/17 21:48 Dose: 100 mg Tramadol HCl (Ultram) 50 mg PO Q6 PRN PRN Reason: Pain, moderate (4-7) Last Admin: 10/13/17 05:03 Dose: 50 mg Trazodone HCl (Desyrel) 150 mg PO [facility] Last Admin: 10/12/17 21:49 Dose: 150 mg - Labs Labs: 10/12/17 10:54 10/12/17 10:54 PT 11.5 SECONDS (9.7-12.2) 10/04/17 22:36 INR 1.1 10/04/17 22:36 APTT 38 SECONDS (21-34) H 10/04/17 22:36 Assessment and Plan - Assessment and Plan (Free Text) Assessment: Please f/u with Dr. Khan office in 1 week Please f/u with Dr. Rosado office in 2 week continue medication as per med. rec. needs suction frequently oxygen via trach collar
[2017-10-13 16:15] VITALS: BP 128/79; PULSE 70; TEMP 99; O2SAT 99
--- NOTE | 2017-10-13 21:56 | CP.PCM.DIS ---
Provider - Provider Date of Admission: 10/04/17 23:34 Attending physician: Ad Khan MD Diagnosis - Discharge Diagnosis (1) COPD exacerbation Status: Acute (2) Tracheostomy dependence Status: Acute (3) Anemia Status: Acute (4) COPD (chronic obstructive pulmonary disease) Status: Acute (5) Steroid-induced hyperglycemia Status: Acute Hospital Course - Lab Results Lab Results: Micro Results 10/08/17 19:52 Trachasp Gram Stain - Final 10/08/17 19:52 Trachasp Sputum Culture - Final Pseudomonas Aeruginosa 10/04/17 22:15 Blood-Venous Blood Culture - Final NO GROWTH AFTER 5 DAYS 10/04/17 22:15 Blood-Venous Gram Stain - Final TEST NOT PERFORMED Most Recent Lab Values WBC 11.7 K/uL (4.8-10.8) H 10/12/17 10:54 RBC 4.58 Mil/uL (3.80-5.20) 10/12/17 10:54 Hgb 11.7 g/dL (11.0-16.0) 10/12/17 10:54 Hct 36.8 % (34.0-47.0) 10/12/17 10:54 MCV 80.2 fL (81.0-99.0) L 10/12/17 10:54 MCH 25.5 pg (27.0-31.0) L 10/12/17 10:54 MCHC 31.8 g/dL (33.0-37.0) L 10/12/17 10:54 RDW 14.3 % (11.5-14.5) 10/12/17 10:54 Plt Count 190 K/uL (130-400) 10/12/17 10:54 MPV 8.4 fL (7.2-11.7) 10/12/17 10:54 Neut % (Auto) 74.4 % (50.0-75.0) 10/12/17 10:54 Lymph % (Auto) 17.6 % (20.0-40.0) L 10/12/17 10:54 [place] % (Auto) 7.0 % (0.0-10.0) 10/12/17 10:54 Eos % (Auto) 0.5 % (0.0-4.0) 10/12/17 10:54 Baso % (Auto) 0.5 % (0.0-2.0) 10/12/17 10:54 Neut # (Auto) 8.7 K/uL (1.8-7.0) H 10/12/17 10:54 Lymph # (Auto) 2.1 K/uL (1.0-4.3) 10/12/17 10:54 [place] # (Auto) 0.8 K/uL (0.0-0.8) 10/12/17 10:54 Eos # (Auto) 0.1 K/uL (0.0-0.7) 10/12/17 10:54 Baso # (Auto) 0.1 K/uL (0.0-0.2) 10/12/17 10:54 PT 11.5 SECONDS (9.7-12.2) 10/04/17 22:36 INR 1.1 10/04/17 22:36 APTT 38 SECONDS (21-34) H 10/04/17 22:36 Puncture Site Left rad 10/04/17 22:35 pCO2 55 mm/Hg (35-45) H 10/04/17 22:35 pO2 131 mm/Hg (80-100) H 10/04/17 22:35 HCO3 25.3 mmol/L (21-28) 10/04/17 22:35 ABG pH 7.31 (7.35-7.45) L 10/04/17 22:35 ABG Total CO2 29.4 mmol/L (22-28) H 10/04/17 22:35 ABG O2 Saturation 99.3 % (95-98) H 10/04/17 22:35 ABG Base Excess 0.4 mmol/L (-2.0-3.0) 10/04/17 22:35 Rob Test Na 10/04/17 22:35 ABG Potassium 4.3 mmol/L (3.6-5.2) 10/04/17 22:35 A-a O2 Difference 85.0 mm/Hg 10/04/17 22:35 Respiratory Index 0.6 10/04/17 22:35 Sodium 142.0 mmol/l (132-148) 10/04/17 22:35 Chloride 107.0 mmol/L (98-107) 10/04/17 22:35 Glucose 179 mg/dl (65-105) H 10/04/17 22:35 Lactate 1.5 mmol/L (0.7-2.1) 10/04/17 22:35 FiO2 40.0 % 10/04/17 22:35 Sodium 143 mmol/L (132-148) 10/12/17 10:54 Potassium 4.0 mmol/L (3.6-5.2) 10/12/17 10:54 Chloride 99 mmol/L (98-107) 10/12/17 10:54 Carbon Dioxide 32 mmol/L (22-30) H 10/12/17 10:54 Anion Gap 16 (10-20) 10/12/17 10:54 BUN 21 mg/dL (7-17) H 10/12/17 10:54 Creatinine 1.1 mg/dL (0.7-1.2) 10/12/17 10:54 Est GFR ( Amer) > 60 10/12/17 10:54 Est GFR (Non-Af Amer) 51 10/12/17 10:54 POC Glucose (mg/dL) > 500 mg/dL (65-110) H* 10/12/17 16:57 Random Glucose 234 mg/dL (65-105) H 10/12/17 10:54 Calcium 9.6 mg/dl (8.6-10.4) 10/12/17 10:54 Phosphorus 3.6 mg/dL (2.5-4.5) 10/12/17 10:54 Magnesium 1.8 mg/dL (1.6-2.3) 10/12/17 10:54 Total Bilirubin 0.4 mg/dL (0.2-1.3) 10/12/17 10:54 AST 11 U/L (14-36) L D 10/12/17 10:54 ALT 19 U/L (9-52) 10/12/17 10:54 Alkaline Phosphatase 121 U/L (38-126) 10/12/17 10:54 Total Protein 8.5 g/dL (6.3-8.3) H 10/12/17 10:54 Albumin 4.0 g/dL (3.5-5.0) 10/12/17 10:54 Globulin 4.5 gm/dL (2.2-3.9) H 10/12/17 10:54 Albumin/Globulin Ratio 0.9 (1.0-2.1) L 10/12/17 10:54 Arterial Blood Potassium 4.3 mmol/L (3.6-5.2) 10/04/17 22:35 Discharge Exam - Head Exam Head Exam: NORMOCEPHALIC Discharge Plan - Follow Up Plan Condition: FAIR Disposition: HOME/ ROUTINE Instructions: Ciprofloxacin (Systemic), Exacerbation of COPD (DC), How to Care for a Tracheostomy Additional Instructions: Please f/u with Dr. Khan office in 1 week Please f/u with Dr. Rosado office in 2 week continue medication as per med. rec. needs suction frequently oxygen via trach collar Referrals: Rodo Rosado MD [Staff Provider] - Ad Khan MD [Staff Provider] - Olvin Ochoa MD [Staff Provider] -
--- NOTE | 2017-10-14 21:30 | DS ---
Copied To: Ad Khan MD Attending MD: Ad Khan MD ADMISSION DIAGNOSIS: Bronchitis. DISCHARGE DIAGNOSES: Tracheobronchitis due to Pseudomonas, bronchial asthma exacerbation, type 2 diabetes, hypertension, morbid obesity. HISTORY OF PRESENT ILLNESS: This is a 61-year-old female with a history of morbid obesity, diabetes, hypertension, bronchial asthma who came in because of cough, congestion, increasing shortness of breath, increasing sputum production, fever, chills, and rigors. The patient was started on Zosyn. Sputum culture grew Pseudomonas, which was sensitive to Zosyn. The patient was continued on Zosyn until she improved. She is feeling better. She is being discharged with outpatient followup. Condition upon discharge is stable. PHYSICAL EXAMINATION: VITAL SIGNS: Blood pressure 128/79, pulse 70, respiratory rate 20, temperature 99. LUNGS: Decreased air entry. Positive rhonchi. CARDIOVASCULAR SYSTEM: S1, S2 are regular. ABDOMEN: Soft. ASSESSMENT: As above. CONDITION UPON DISCHARGE: Stable. Ad Khan MD
== END 2017-10-13 17:36 | disposition home or self-care (01) | DRG 541 ==
LOC: C.ER 21:42 → C.9E 23:34 → C.5S 10-05 01:32
PROVIDERS: ADMIT Internal Medicine; ATTEND Internal Medicine
DX: J44.0 Chronic obstructive pulmonary disease with (acute) lower respiratory infection (principal); J20.8 Acute bronchitis due to other specified organisms; J96.10 Chronic respiratory failure, unspecified whether with hypoxia or hypercapnia; J18.9 Pneumonia, unspecified organism; I50.9 Heart failure, unspecified; I11.0 Hypertensive heart disease with heart failure; E11.65 Type 2 diabetes mellitus with hyperglycemia; B96.5 Pseudomonas (aeruginosa) (mallei) (pseudomallei) as the cause of diseases classified elsewhere; J44.1 Chronic obstructive pulmonary disease with (acute) exacerbation; J98.09 Other diseases of bronchus, not elsewhere classified; D64.9 Anemia, unspecified; F31.9 Bipolar disorder, unspecified; E78.5 Hyperlipidemia, unspecified; G47.30 Sleep apnea, unspecified; Z93.0 Tracheostomy status; T38.0X5A Adverse effect of glucocorticoids and synthetic analogues, initial encounter; J45.901 Unspecified asthma with (acute) exacerbation; Y95 Nosocomial condition; E66.01 Morbid (severe) obesity due to excess calories; Z68.42 Body mass index [BMI] 45.0-49.9, adult; Z79.4 Long term (current) use of insulin; Z87.01 Personal history of pneumonia (recurrent); Z90.49 Acquired absence of other specified parts of digestive tract; Z99.81 Dependence on supplemental oxygen

== ENCOUNTER 2017-11-13 21:46 | Inpatient (IN) | payer OTHER ==
[2017-11-13 21:48] VITALS: BMI 45.6
--- NOTE | 2017-11-13 21:55 | C.PDOC ---
History Of Present Illness 62 y/o female with PMHx of COPD, CHF, HTN and s/p tracheostomy presents to the ED complaining of shortness of breath for 3 days. States she developed a fever, bodyaches, abdominal pain, nausea, and hemoptysis since Sunday. Otherwise she denies any diarrhea, constipation, dysuria, or recent steroid use or antibiotics. Patient states she is on 3L of supplemental O2 at home via her trach collar, denies use of ventilator. PMD: Dr. Ad Khan Time Seen by Provider: 11/13/17 21:54 Chief Complaint (Nursing): Shortness Of Breath History Per: Patient History/Exam Limitations: no limitations Onset/Duration Of Symptoms: Days Current Symptoms Are (Timing): Still Present Associated Symptoms: Fever, Bloody Cough Past Medical History Reviewed: Historical Data, Nursing Documentation, Vital Signs Vital Signs: Last Vital Signs Temp 99.4 F 11/13/17 21:51 Pulse 93 H 11/14/17 00:29 Resp 17 11/14/17 00:29 BP 105/55 L 11/14/17 00:29 Pulse Ox 100 11/14/17 00:29 - Medical History PMH: Anxiety, Asthma, Bipolar Disorder, Bronchitis, CHF, COPD (Emphysema,), Depression, Emphysema, Gall Bladder Disease, HTN, Pneumonia, Seizures, Sleep Apnea Denies: Arthritis, HIV, Hypercholesterolemia, Hypothyroidism, Chronic Kidney Disease, Rheumatoid Arthritis, Sexually Transmitted Disease Surgical History: Appendectomy, Cholecystectomy - [facility] Procedures ASSISTANCE WITH RESPIRATORY VENTILATION, <24 HRS, CPAP (03/14/16) CENTRAL VENOUS CATHETER PLACEMENT WITH GUIDANCE (10/24/14) CHANGE TRACHEOSTOMY DEVICE IN TRACHEA, EXTERNAL APPROACH (07/03/17) CONTINUOUS INVASIVE MECHANICAL VENTILATION <96 CONSEC HRS (03/07/14) ENTERAL INFUSION OF CONCENTRATED NUT. SUBSTANCES (09/17/12) INSERT ENDOTRACHEAL TUBE (09/17/12) INSERTION OF ENDOTRACHEAL AIRWAY INTO TRACHEA, VIA OPENING (06/12/17) INSERTION OF INFUSION DEV INTO SUP VENA CAVA, PERC APPROACH (04/27/17) INSERTION OF INFUSION DEVICE INTO UPPER VEIN, PERC APPROACH (10/04/17) INTRODUCE OF OTH THERAP SUBST INTO RESP TRACT, VIA OPENING (05/03/15) INTRODUCTION OF NUTRITIONAL INTO UP GI, VIA OPENING (06/12/17) NEBULIZER THERAPY (09/17/12) REMOVAL OF TRACHEOSTOMY DEVICE FROM TRACHEA, ASSEMBLER ADJUSTER APPROACH (06/12/17) RESPIRATORY VENTILATION, 24-96 CONSECUTIVE HOURS (06/12/17) RESPIRATORY VENTILATION, GREATER THAN 96 CONSECUTIVE HOURS (02/27/17) Family History: States: Unknown Family Hx - Social History Hx Tobacco Use: No Hx Alcohol Use: No Hx Substance Use: No - Immunization History Hx Tetanus Toxoid Vaccination: No Hx Influenza Vaccination: No Hx Pneumococcal Vaccination: No Review Of Systems Constitutional: Positive for: Fever Cardiovascular: Negative for: Chest Pain, Palpitations Respiratory: Positive for: Cough, Shortness of Breath. Negative for: Hemoptysis Gastrointestinal: Positive for: Nausea, Abdominal Pain. Negative for: Vomiting , Diarrhea, Constipation Genitourinary: Negative for: Dysuria Neurological: Negative for: Weakness, Numbness Physical Exam - Physical Exam Appears: Non-toxic, No Acute Distress Skin: Warm, Dry Head: Atraumatic, Normacephalic Eye(s): bilateral: Normal Inspection, PERRL, EOMI Oral Mucosa: Moist Neck: Normal (with tracheostomy intact), Normal ROM, No Midline Cervical Tenderness, No Paracervical Tenderness, Supple, Other (negative kernig's and brudzinskis, trach collar in place, non-erythematous, no crepitus) Chest: Symmetrical Cardiovascular: Rhythm Regular, Other (No rub) Respiratory: No Rales, No Rhonchi, Wheezing (bilateral) Gastrointestinal/Abdominal: Soft, Tenderness (to the RLQ), No Guarding, No Rebound Extremity: Bilateral: Atraumatic, Normal Color And Temperature Pulses: Left Dorsalis Pedis: Normal, Right Dorsalis Pedis: Normal Neurological/Psych: Oriented x3 ED Course And Treatment - Laboratory Results Result Diagrams: 11/13/17 22:07 11/13/17 22:07 O2 Sat by Pulse Oximetry: 94 (via trach collar) Pulse Ox Interpretation: Abnormal - CT Scan/US CT A/P Other Rad Studies (CT/US): Read By Radiologist, Radiology Report Reviewed CT/US Interpretation: Name: HORTENCIA MAIN Age: 62Years F Date: 11/13/2017. Requesting Physician: Edvin Menendez : 1955. [employer] Procedure Ordered As Accession Number of. Images. CT ABDOMEN/PELVIS. WO. CT ABD PELVIS W O PO OR IV. CONT. [id number]. J. 691. Provided Clinical History : abd pain. EXAM: CT Abdomen and Pelvis Without Intravenous Contrast. EXAM DATE/TIME: 11/13/2017 10:26 PM. CLINICAL HISTORY: 62 years old, female; Pain; Abdominal pain; Prior surgery; Additional info: Abd pain. TECHNIQUE: Axial computed tomography images of the abdomen and pelvis without intravenous contrast. All CT scans at this facility use at least one of these dose optimization techniques: automated. exposure control; mA and/or kV adjustment per patient size (includes targeted exams where dose is. matched to clinical indication); or iterative reconstruction. Coronal and sagittal reformatted images were created and reviewed. COMPARISON: No relevant prior studies available. FINDINGS: Lower thorax: Bibasilar opacities secondary to atelectasis/infiltrate or fibrosis. ABDOMEN: Liver: Normal. No mass. Gallbladder and bile ducts: There has been a cholecystectomy. Pancreas: Normal. No ductal dilation. Spleen: There is mild nonspecific splenomegaly. Adrenals: Normal. No mass. Kidneys and ureters: Normal. No hydronephrosis. Stomach and bowel: There is no wall thickening or pericolonic stranding to suggest colitis. There is. a single diverticulum in the descending colon. There is no evidence of intestinal obstruction. Appendix: No visualized. PELVIS: Bladder: Unremarkable as visualized. Reproductive: Unremarkable as visualized. ABDOMEN and PELVIS: Intraperitoneal space: Normal. No free air. No significant fluid collection. Bones/joints: Multiple compression fractures the thoracic and lumbar spine, age indeterminate. No. dislocation. Soft tissues: Unremarkable. Vasculature: The vasculature demonstrates diffuse mild atherosclerotic calcification. Lymph nodes: Normal. No enlarged lymph nodes. IMPRESSION: No evidence of an acute intra-abdominal or pelvic abnormality. Medical Decision Making Medical Decision Making: Impression: 62 y/o F with PMHx of COPD, CHF, emphysema, p/w complaints of SOB, bodyaches, fever, nausea, abd pain. Likely COPD exacerbation vs PNA. Plan: --EKG --VBG --Blood work with cardiac enzymes --Blood culture --Chest X-ray --CT Abd/Pelvis --Reglan 10 mg IVP --Solu-medrol 125 mg IVP --Douneb 3 ml INH --Peak Flow pre/post neb --Avelox 400mg in IVPB Progress/Updates: EKG: NSR at 95 bpm, flat T in lead 3, no STEMI CT abd unremarkable- b/l opacities seen- moxi ordered. WBC elevated afebrile, ?SIRS vitals from SOB / COPD confounding, BC ordered regardless. Pending BNP, will likely give gentle hydration 1205 given hx of CHF, will give gentle hydration endorsed to Dr. Khan who accepts pt to his serice Disposition - Disposition Disposition: HOSPITALIZED Disposition Time: 12:05 Condition: GOOD - Clinical Impression Clinical Impression: COPD exacerbation - Scribe Statement The provider has reviewed the documentation as recorded by the Scribe (Jessica Keenan) Provider Attestation: All medical record entries made by the Scribe were at my direction and personally dictated by me. I have reviewed the chart and agree that the record accurately reflects my personal performance of the history, physical exam, medical decision making, and the department course for this patient. I have also personally directed, reviewed, and agree with the discharge instructions and disposition.
[2017-11-13] MEDS ORDERED: Albuterol-Ipratrop 3 mg / 0.5 (3 ml) UD INH STA (22:03)
[2017-11-13 22:11] LABS: BASO # 0.1 K/uL (0.0-0.2); BASO % 0.4 % (0.0-2.0); EOS # 0.2 K/uL (0.0-0.7); EOS % 1.3 % (0.0-4.0); HEMOGLOBIN 11.9 g/dL (11.0-16.0); LYMPH # 3.2 K/uL (1.0-4.3); LYMPH % 19.3 % (20.0-40.0); MEAN CELL VOLUME 76.7 fL (81.0-99.0); MEAN CORPUSCULAR HEMOGLOBIN 25.1 pg (27.0-31.0); MEAN CORPUSCULAR HGB CONC 32.7 g/dL (33.0-37.0); MONO # 1.1 K/uL (0.0-0.8); MONO % 6.5 % (0.0-10.0); NEUT % 72.5 % (50.0-75.0); RBC 4.75 Mil/uL (3.80-5.20); RED CELL DISTRIBUTION WIDTH 15.1 % (11.5-14.5); WHITE BLOOD COUNT 16.5 K/uL (4.8-10.8)
[2017-11-13 22:21] LABS: VENOUS BLOOD GAS BASE EXCESS 3.7 mmol/L (0.0-2.0); VENOUS BLOOD GAS PCO2 54 mmHg (40-60); VENOUS BLOOD GAS PO2 37 mm/Hg (30-55); VENOUS BLOOD PH 7.36 (7.32-7.43)
[2017-11-13 22:24] LABS: ALB/GLOB RATIO 0.9 (1.0-2.1); ALBUMIN 4.3 g/dL (3.5-5.0); ALT/SGPT 14 U/L (9-52); AST/SGOT 18 U/L (14-36); BLOOD UREA NITROGEN 16 mg/dL (7-17); GFR NON-AFRICAN AMERICAN > 60
[2017-11-13] MEDS ORDERED: Moxifloxacin IV 400mg/250ml NS 400 MG/250 ML BAG IVPB ONE ×2 (22:24→22:29)
[2017-11-13 22:34] LABS: B-TYPE NATRIURETIC PEPTIDE 113 pg/mL (0-900)
[2017-11-14] MEDS ORDERED: guaiFENesin 200 mg/10 ml Syrup UD PO PRN (00:06)
[2017-11-14] MEDS ORDERED: Albuterol-Ipratrop 3 mg / 0.5 (3 ml) UD INH STA (00:06)
[2017-11-14] MEDS ORDERED: Sodium Chloride 0.9% 500 ML IV ONE ×2 (00:07→00:25)
[2017-11-14] MEDS ORDERED: Albuterol-Ipratrop 3 mg / 0.5 (3 ml) UD ONE ×2 (00:08→03:49)
[2017-11-14] MEDS ORDERED: [UNRECOGNIZED DRUG - REMARK] PO PRN (00:15)
[2017-11-14] MEDS ORDERED: Sodium Chloride 0.9% 1,000 ML IV SCH (00:15)
[2017-11-14] MEDS: Albuterol-Ipratrop 3 mg / 0.5 (3 ml) UD INH SCH ×5 (03:59→19:29)
[2017-11-14] MEDS: Acetylcysteine 20% Inhal Soln (4ml) INH SCH ×4 (04:00→19:29)
[2017-11-14] MEDS: Piperacillin/Tazobact 3.375 GM in Sodium Chloride 100 ML IVPB SCH ×2 (04:45→12:23)
[2017-11-14] MEDS ORDERED: Piperacillin/Tazobact 3.375 gm 100 ML IVPB ONE (05:13)
--- NOTE | 2017-11-14 07:54 | CT ---
Date of service: 11/13/2017 PROCEDURE: CT Abdomen and Pelvis without intravenous contrast HISTORY: Abdominal pain COMPARISON: None. TECHNIQUE: Multiple contiguous axial images were performed through the abdomen and pelvis without the use of intravenous contrast. Subsequently, sagittal and reformatted images were obtained. Radiation dose: Total exam DLP = 1125 mGy-cm. This CT exam was performed using one or more of the following dose reduction techniques: Automated exposure control, adjustment of the mA and/or kV according to patient size, and/or use of iterative reconstruction technique. FINDINGS: LOWER THORAX: Bibasilar opacities secondary to atelectasis and or infiltrate and/or fibrosis. LIVER: Unremarkable. No gross lesion or ductal dilatation. GALLBLADDER AND BILE DUCTS: Prior cholecystectomy. PANCREAS: Fatty atrophy of the pancreas. SPLEEN: Mild nonspecific splenomegaly. ADRENALS: Unremarkable. No mass. KIDNEYS AND URETERS: Unremarkable. No hydronephrosis. No solid mass. VASCULATURE: Unremarkable. No aortic aneurysm. BOWEL: No wall thickening or pericolonic stranding to suggest colitis. Single diverticulum in the descending colon. APPENDIX: Not well visualized. PERITONEUM: Unremarkable. No free fluid. No free air. LYMPH NODES: Unremarkable. No enlarged lymph nodes. BLADDER: Unremarkable. REPRODUCTIVE: Unremarkable. BONES: Multiple compression fractures in the thoracic and lumbar spine, age indeterminate. OTHER FINDINGS: Atherosclerotic calcification of the vasculature. IMPRESSION: Negative acute. These findings were preliminarily reported at 11:40 p.m. on 11/13/[address] Liliam Hoffman from [facility].
--- NOTE | 2017-11-14 08:45 | PCM.RRT ---
<Jessica Hwang DO - Last Filed: 11/14/17 09:15> Plan - Assessment of Findings&Treatment Plan Patient given additional 5mg IVP of propofol due to agitation and distress. Patient's repeat BP 182/ 133, O2 sat 100%. Repeat pressure 132/77 after additional propofol. <EstevanEllie - Last Filed: 11/14/17 13:21> [employer] Nurses Assessment - Situation Date: 11/14/17 - Ventilator Settings Ventilator Respiratory Rate Settin Ventilator Tidal Volume Settin I.Reason for [employer] - A) Acute Change in Patient: Subjective: Respiratory distress - Neurological Status Other (Please specify): respiratory distress - Respiratory Oxygen Delivery Method: Trach Collar @% - Constitutional Appears: In Acute Distress, Agitated, Chronically Ill - Head Head Exam: ATRAUMATIC, NORMAL INSPECTION - Eyes Eye Exam: EOMI - Respiratory Exam Respiratory Exam: Decreased Breath Sounds, Rales Additional comments: Trach in place, appeared to be in tac - Cardiovascular Exam Cardiovascular Exam: Tachycardia, REGULAR RHYTHM, +S1, +S2 - GI/Abdominal Exam GI & Abdominal Exam: Soft, Normal Bowel Sounds. absent: Distended, Firm, Guarding, Tenderness Additional comments: obese - Neurological Exam Neurological Exam: Alert, Awake, Oriented x3 Plan - Assessment of Findings&Treatment Plan Rapid Response called by nurse for respiratory distress. Patient has a trach in place and she was struggling to breathe. Patient was grasping at the area of the trach and moving her head around like she was choking. Per nurse patient was brought up from the emergency room in this state. HR 153, o2 90% on trach, BP 122/97. Trach was suctioned with many 1cc flushes or NS. Ambu bag was used to deliver O2 through the trach. Some amounts of mucus came up from the tube. Ativan 2mg IVP was given for sedation. Propofol 5mg IVP was ordered. ICU was consulted. Dr. Rosado at bedside. Versed 2mg IVP given once. Patient will be transferred to ICU.
--- NOTE | 2017-11-14 08:48 | RAD ---
Date of service: 11/13/2017 HISTORY: sob COMPARISON: Portable chest 10/04/2017. FINDINGS: LUNGS: No active pulmonary disease. Limited linear atelectasis or fibrosis is question at the inferior left lung zone. PLEURA: No significant pleural effusion identified, no pneumothorax apparent. CARDIOVASCULAR: Prominent cardiac silhouette reiterated with pulmonary vascular congestion again suggested. OSSEOUS STRUCTURES: No significant abnormalities. VISUALIZED UPPER ABDOMEN: Normal. OTHER FINDINGS: None. IMPRESSION: Pulmonary vascular congestion remains in question with linear atelectasis or fibrosis at the left base difficult to exclude. With alone perez remains clear.
[2017-11-14] MEDS ORDERED: Propranolol 1 mg/mL Inj IVP ONE (08:49)
[2017-11-14] MEDS ORDERED: Propofol 10 mg/ml Inj (20 ML) IV ONE ×3 (08:50→09:25)
[2017-11-14] MEDS ORDERED: Midazolam 2 MG/2 ML VIAL IVP ONE (08:53)
[2017-11-14] MEDS: Propofol 10 mg/ml 1,000 MG/100 ML VIAL IV PRN ×8 (09:40→23:26)
[2017-11-14] MEDS ORDERED: MethylPREDNISolone 40 mg Vial IVP SCH (10:00)
[2017-11-14] MEDS ORDERED: Pantoprazole 40 mg EC Tab PO SCH (10:00)
[2017-11-14] MEDS ORDERED: QUEtiapine 200 mg XR Tab PO SCH (10:00)
[2017-11-14] MEDS: (Novolin R) Insulin Human Regular 100 units/ml vial SC SCH ×3 (10:00→18:00)
--- NOTE | 2017-11-14 10:23 | CT ---
Date of service: 11/14/2017 PROCEDURE: CT Chest without contrast HISTORY: respiratory distress, eval for mucous plugging COMPARISON: 04/27/2017 TECHNIQUE: Contiguous axial images were obtained through the chest without intravenous contrast enhancement. Sagittal and coronal reconstructions were performed. Radiation dose (DLP): 888.99 mGy-cm. This CT exam was performed using one or more of the following dose reduction techniques: Automated exposure control, adjustment of the mA and/or kV according to patient size, and/or use of iterative reconstruction technique. FINDINGS: LUNGS: Multifocal areas of consolidation. Lower lobe basilar and superior segments. Apical and posterior segments of right upper lobe. Superior segment and basilar segments left lower lobe. Nonspecific. Rule out pneumonia. No evidence of mucous plugging. Tracheobronchial tree is unremarkable. MEDIASTINUM: Unremarkable thoracic aorta. No aneurysm. Mild cardiomegaly. Tracheostomy tube noted. Main pulmonary artery unremarkable. No vascular congestion. Few minimally enlarged mediastinal nodes. No hilar lymphadenopathy. PLEURA: No pleural fluid. No pneumothorax. BONES: Compression deformities T7, T9, T11, T12 and L1 vertebral bodies unchanged from prior examination of 04/27/2017. No acute fracture. UPPER ABDOMEN: Mild hepatosplenomegaly. OTHER FINDINGS: None. IMPRESSION: Multifocal infiltrates. No evidence of mucous plugging. Mild mediastinal lymphadenopathy. Mild cardiomegaly. Multiple old vertebral compression fractures. Mild hepatosplenomegaly. Tracheostomy noted.
[2017-11-14] MEDS ORDERED: Azithromycin 500mg/250ML NS 500 MG/250 ML BAG IVPB SCH (10:30)
[2017-11-14] MEDS: Enoxaparin 40 mg Syringe SC SCH (11:06)
--- NOTE | 2017-11-14 12:35 | CP.PCM.CON ---
<Giuliana Murrieta - Last Filed: 11/14/17 16:47> History of Present Illness - History of Present Illness History of Present Illness: ICU Consult Note Patient is a 62 year old female with history of COPD, HTN, CHF, sp tracheostomy who presented for 3 day history of shortness of breath associated with fever, bodyaches, abdominal pain, nausea and hemoptysis today. Patient is trached and is on 3L of supplemental O2 at home. Rapid response was called after patient was noted to be in respiratory distress with tachycardia and O2 sat at 90%. Tracheostomy tube was suctioned multiple times with some secretions. Patient received Ativan and Propofol for sedation. PMH: COPD, HTN, CHF, sp tracheostomy, anxiety, depression, seizures PSH: appendectomy, cholecystectomy, tracheostomy Home meds: As per MAR, Trazodone, Protonix, Singulair, Seroquel, Gabapentin, Lantus Social hx: no tobacco, alcohol or drug use. Allergies: ASA, Rocephn, Ibuprofen, Iodine, raspberry Review of Systems - Review of Systems Systems not reviewed;Unavailable: Other Past Patient History - Infectious Disease Hx of Infectious Diseases: None - Tetanus Immunizations Tetanus Immunization: Unknown - Past Medical History & Family History Past Medical History?: Yes - Past Social History Smoking Status: Never Smoked - CARDIAC Hx Congestive Heart Failure: Yes Hx Hypercholesterolemia: No Hx Hypertension: Yes - PULMONARY Hx Asthma: Yes Hx Bronchitis: Yes Hx Chronic Obstructive Pulmonary Disease (COPD): Yes (Emphysema,) Hx Emphysema: Yes Hx Pneumonia: Yes Hx Sleep Apnea: Yes - NEUROLOGICAL Hx Seizures: Yes - HEENT Hx HEENT Problems: Yes Hx Cataracts: Yes - RENAL Hx Chronic Kidney Disease: No - ENDOCRINE/METABOLIC Hx Hypothyroidism: No - HEMATOLOGICAL/ONCOLOGICAL Hx Human Immunodeficiency Virus (HIV): No - INTEGUMENTARY Hx Dermatological Problems: No - MUSCULOSKELETAL/RHEUMATOLOGICAL Hx Arthritis: No Hx Rheumatoid Arthritis: No - GASTROINTESTINAL Hx Gall Bladder Disease: Yes - GENITOURINARY/GYNECOLOGICAL Hx Sexually Transmitted Disorders: No - PSYCHIATRIC Hx Anxiety: Yes Hx Bipolar Disorder: Yes Hx Depression: Yes Hx Substance Use: No - SURGICAL HISTORY Hx Appendectomy: Yes Hx Cholecystectomy: Yes - ANESTHESIA Hx Anesthesia: Yes Hx Anesthesia Reactions: No Hx Malignant Hyperthermia: No Meds Allergies/Adverse Reactions: Allergies Allergy/AdvReac Type Severity Reaction Status Date / Time aspirin Allergy ANAPHYLAXIS Verified 10/04/17 22:03 ceftriaxone sodium Allergy ANAPHYLAXIS Verified 10/04/17 22:03 [From Rocephin] ibuprofen [From Motrin] Allergy ANAPHYLAXIS Verified 10/04/17 22:03 iodine Allergy ANAPHYLAXIS Verified 10/04/17 22:03 raspberry Allergy ANAPHYLAXIS Verified 10/04/17 22:03 - Medications Medications: Current Medications Acetaminophen (Tylenol 325mg Tab) 500 mg PO Q4 PRN PRN Reason: Pain, Mild (1-3) Acetylcysteine (Acetylcysteine 20%) 4 ml INH Q6H [facility] Last Admin: 11/14/17 08:30 Dose: 4 ml Albuterol/Ipratropium (Duoneb 3 Mg/0.5 Mg (3 Ml) Ud) 3 ml INH RQ4 [facility] Last Admin: 11/14/17 08:30 Dose: Not Given Enoxaparin Sodium (Lovenox) 40 mg SC DAILY [facility] Last Admin: 11/14/17 11:06 Dose: 40 mg Gabapentin (Neurontin) 800 mg PO TID [facility] Guaifenesin (Robitussin) 200 mg PO Q4H PRN PRN Reason: Cough and congestion Last Admin: 11/14/17 04:30 Dose: 200 mg Piperacillin Sod/Tazobactam (Sod 3.375 gm/ Sodium Chloride) 100 mls @ 200 mls/ hr IVPB Q6H [facility] PRN Reason: Protocol Last Admin: 11/14/17 12:23 Dose: 200 mls/hr Propofol (Diprivan) 1,000 mg in 100 mls @ 4.082 mls/hr IV .Q24H PRN; Protocol; 5 MCG/KG/MIN PRN Reason: TITRATE PER MD ORDER Last Admin: 11/14/17 11:53 Dose: 40 mcg/kg/min, 32.659 mls/hr Vancomycin/Sodium Chloride (Vancomycin 1 Gm/Ns 200 Ml) 1 gm in 200 mls @ 133 mls/hr IVPB Q12H [facility] PRN Reason: Protocol Stop: 11/19/17 12:01 Azithromycin 500 mg/ Sodium (Chloride) 250 mls @ 167 mls/hr IVPB Q24H [facility] PRN Reason: Protocol Insulin Human Regular (Novolin R) 0 unit SC ACHS [facility] PRN Reason: Protocol Methylprednisolone (Solu-Medrol) 60 mg IVP Q8 [facility] Montelukast Sodium (Singulair) 10 mg PO HS [facility] Pantoprazole Sodium (Protonix Ec Tab) 40 mg PO DAILY [facility] Quetiapine Fumarate (Seroquel Xr) 400 mg PO Q12 [facility] Sertraline HCl (Zoloft) 100 mg PO BID [facility] Trazodone HCl (Desyrel) 150 mg PO HS [facility] Physical Exam - Head Exam Head Exam: ATRAUMATIC, NORMOCEPHALIC - Eye Exam Eye Exam: EOMI Pupil Exam: PERRL - ENT Exam ENT Exam: Mucous Membranes Moist - Respiratory Exam Respiratory Exam: Decreased Breath Sounds Additional comments: Trach collar in place, currently saturating 97% - Cardiovascular Exam Cardiovascular Exam: REGULAR RHYTHM, +S1, +S2 - GI/Abdominal Exam GI & Abdominal Exam: Normal Bowel Sounds, Soft. absent: Tenderness - Extremities Exam Extremities exam: Positive for: pedal pulses present. Negative for: calf tenderness, pedal edema - Neurological Exam Additional comments: Slightly somnolent on Propofol Results - Vital Signs Recent Vital Signs: Last Vital Signs Temp 98.3 F 11/14/17 08:30 Pulse 100 H 11/14/17 09:10 Resp 22 11/14/17 09:10 BP 132/77 11/14/17 09:10 Pulse Ox 100 11/14/17 09:10 - Labs Result Diagrams: 11/13/17 22:07 11/13/17 22:07 Labs: Laboratory Results - last 24 hr 11/13/17 11/13/17 11/13/17 22:07 22:07 22:15 WBC 16.5 H RBC 4.75 Hgb 11.9 Hct 36.5 MCV 76.7 L D MCH 25.1 L MCHC 32.7 L RDW 15.1 H Plt Count 223 MPV 8.0 Neut % (Auto) 72.5 Lymph % (Auto) 19.3 L [place] % (Auto) 6.5 Eos % (Auto) 1.3 Baso % (Auto) 0.4 Neut # (Auto) 12.0 H Lymph # (Auto) 3.2 [place] # (Auto) 1.1 H Eos # (Auto) 0.2 Baso # (Auto) 0.1 pO2 37 VBG pH 7.36 VBG pCO2 54 VBG HCO3 27.0 VBG Total CO2 32.2 H VBG O2 Sat (Calc) 71.8 H VBG Base Excess 3.7 H VBG Potassium 4.0 Glucose 114 H Lactate 1.1 Sodium 142 140.0 Potassium 4.2 Chloride 101 106.0 Carbon Dioxide 29 Anion Gap 17 BUN 16 Creatinine 0.8 Est GFR ( Amer) > 60 Est GFR (Non-Af Amer) > 60 POC Glucose (mg/dL) Random Glucose 123 H Calcium 10.0 Magnesium 1.9 Total Bilirubin 0.4 AST 18 ALT 14 Alkaline Phosphatase 155 H D Troponin I < 0.0120 NT-Pro-B Natriuret Pep 113 Total Protein 8.8 H Albumin 4.3 Globulin 4.6 H Albumin/Globulin Ratio 0.9 L Lipase Venous Blood Potassium 4.0 11/13/17 11/14/17 22:45 07:11 WBC RBC Hgb Hct MCV MCH MCHC RDW Plt Count MPV Neut % (Auto) Lymph % (Auto) [place] % (Auto) Eos % (Auto) Baso % (Auto) Neut # (Auto) Lymph # (Auto) [place] # (Auto) Eos # (Auto) Baso # (Auto) pO2 VBG pH VBG pCO2 VBG HCO3 VBG Total CO2 VBG O2 Sat (Calc) VBG Base Excess VBG Potassium Glucose Lactate Sodium Potassium Chloride Carbon Dioxide Anion Gap BUN Creatinine Est GFR ( Amer) Est GFR (Non-Af Amer) POC Glucose (mg/dL) 395 H Random Glucose Calcium Magnesium Total Bilirubin AST ALT Alkaline Phosphatase Troponin I NT-Pro-B Natriuret Pep Total Protein Albumin Globulin Albumin/Globulin Ratio Lipase 26 Venous Blood Potassium Assessment & Plan - Assessment and Plan (Free Text) Assessment: 62 year old female with history of COPD, HTN, CHF, sp tracheostomy who presented for 3 day history of shortness of breath associated with fever, bodyaches, abdominal pain, nausea and hemoptysis today. Patient is trached and is on 3L of supplemental O2 at home. Rapid response was called after patient was noted to be in respiratory distress with tachycardia and O2 sat at 90%. Tracheostomy tube was suctioned multiple times with some secretions. Patient received Ativan and Propofol for sedation. Plan: Neuro: Hx of depression, on Seroquel and Zoloft at home, held currently Sedated on Propofol Cardiovascular Not on pressors Hemodynamically stable Dr. Dietz consulted, help appreciated Pulmonary Duonebs Q4 Solumedrol 60mg Q8 Azithromycin 500mg Vancomyin 1g Q12 Merrem [address] Rosado consulted, help appreciated f/u legionella, mycoplasma GI Protonix Renal I&Os ID Dr. Ochoa consulted, help appreciated Azithromycin 500mg Vancomyin 1g Q12 Merrem 1g IV f/u cultures Heme H/H stable Endo Maintain euglycemia PPX Lovenox, Protonix Case discussed with Dr. Rosado <Rodo Rosado - Last Filed: 11/14/17 17:40> Meds - Medications Medications: Current Medications Acetaminophen (Tylenol 325mg Tab) 500 mg PO Q4 PRN PRN Reason: Pain, Mild (1-3) Acetylcysteine (Acetylcysteine 20%) 4 ml INH Q6H [facility] Last Admin: 11/14/17 14:52 Dose: 4 ml Albuterol/Ipratropium (Duoneb 3 Mg/0.5 Mg (3 Ml) Ud) 3 ml INH RQ4 [facility] Last Admin: 11/14/17 16:35 Dose: 3 ml Enoxaparin Sodium (Lovenox) 40 mg SC DAILY [facility] Last Admin: 11/14/17 11:06 Dose: 40 mg Gabapentin (Neurontin) 800 mg PO TID [facility] Last Admin: 11/14/17 10:00 Dose: Not Given Guaifenesin (Robitussin) 200 mg PO Q4H PRN PRN Reason: Cough and congestion Last Admin: 11/14/17 04:30 Dose: 200 mg Propofol (Diprivan) 1,000 mg in 100 mls @ 4.082 mls/hr IV .Q24H PRN; Protocol; 5 MCG/KG/MIN PRN Reason: TITRATE PER MD ORDER Last Admin: 11/14/17 15:33 Dose: 70 mcg/kg/min, 57.153 mls/hr Vancomycin/Sodium Chloride (Vancomycin 1 Gm/Ns 200 Ml) 1 gm in 200 mls @ 133 mls/hr IVPB Q12H [facility] PRN Reason: Protocol Stop: 11/19/17 12:01 Last Admin: 11/14/17 12:55 Dose: 133 mls/hr Azithromycin 500 mg/ Sodium (Chloride) 250 mls @ 167 mls/hr IVPB Q24H [facility] PRN Reason: Protocol Last Admin: 11/14/17 15:30 Dose: 167 mls/hr Meropenem 1 gm/ Sodium (Chloride) 100 mls @ 100 mls/hr IVPB Q8H [facility] PRN Reason: Protocol Last Admin: 11/14/17 17:10 Dose: 100 mls/hr Insulin Human Regular (Novolin R) 0 unit SC Q6 [facility] PRN Reason: Protocol Methylprednisolone (Solu-Medrol) 60 mg IVP Q8 [facility] Last Admin: 11/14/17 17:12 Dose: 60 mg Montelukast Sodium (Singulair) 10 mg PO HS [facility] Pantoprazole Sodium (Protonix Ec Tab) 40 mg PO DAILY [facility] Last Admin: 11/14/17 10:00 Dose: Not Given Quetiapine Fumarate (Seroquel Xr) 400 mg PO Q12 [facility] Last Admin: 11/14/17 10:00 Dose: Not Given Sertraline HCl (Zoloft) 100 mg PO BID [facility] Last Admin: 11/14/17 10:00 Dose: Not Given Trazodone HCl (Desyrel) 150 mg PO HS [facility] Results - Vital Signs Recent Vital Signs: Last Vital Signs Temp 98.8 F 11/14/17 10:00 Pulse 96 H 11/14/17 17:06 Resp 12 11/14/17 17:06 BP 115/63 11/14/17 17:06 Pulse Ox 100 11/14/17 17:06 - Labs Result Diagrams: 11/13/17 22:07 11/13/17 22:07 Labs: Laboratory Results - last 24 hr 11/13/17 11/13/17 11/13/17 22:07 22:07 22:15 WBC 16.5 H RBC 4.75 Hgb 11.9 Hct 36.5 MCV 76.7 L D MCH 25.1 L MCHC 32.7 L RDW 15.1 H Plt Count 223 MPV 8.0 Neut % (Auto) 72.5 Lymph % (Auto) 19.3 L [place] % (Auto) 6.5 Eos % (Auto) 1.3 Baso % (Auto) 0.4 Neut # (Auto) 12.0 H Lymph # (Auto) 3.2 [place] # (Auto) 1.1 H Eos # (Auto) 0.2 Baso # (Auto) 0.1 pO2 37 VBG pH 7.36 VBG pCO2 54 VBG HCO3 27.0 VBG Total CO2 32.2 H VBG O2 Sat (Calc) 71.8 H VBG Base Excess 3.7 H VBG Potassium 4.0 Glucose 114 H Lactate 1.1 Sodium 142 140.0 Potassium 4.2 Chloride 101 106.0 Carbon Dioxide 29 Anion Gap 17 BUN 16 Creatinine 0.8 Est GFR ( Amer) > 60 Est GFR (Non-Af Amer) > 60 POC Glucose (mg/dL) Random Glucose 123 H Calcium 10.0 Magnesium 1.9 Total Bilirubin 0.4 AST 18 ALT 14 Alkaline Phosphatase 155 H D Troponin I < 0.0120 NT-Pro-B Natriuret Pep 113 Total Protein 8.8 H Albumin 4.3 Globulin 4.6 H Albumin/Globulin Ratio 0.9 L Lipase Venous Blood Potassium 4.0 11/13/17 11/14/17 11/14/17 22:45 07:11 11:21 WBC RBC Hgb Hct MCV MCH MCHC RDW Plt Count MPV Neut % (Auto) Lymph % (Auto) [place] % (Auto) Eos % (Auto) Baso % (Auto) Neut # (Auto) Lymph # (Auto) [place] # (Auto) Eos # (Auto) Baso # (Auto) pO2 VBG pH VBG pCO2 VBG HCO3 VBG Total CO2 VBG O2 Sat (Calc) VBG Base Excess VBG Potassium Glucose Lactate Sodium Potassium Chloride Carbon Dioxide Anion Gap BUN Creatinine Est GFR ( Amer) Est GFR (Non-Af Amer) POC Glucose (mg/dL) 395 H 317 H Random Glucose Calcium Magnesium Total Bilirubin AST ALT Alkaline Phosphatase Troponin I NT-Pro-B Natriuret Pep Total Protein Albumin Globulin Albumin/Globulin Ratio Lipase 26 Venous Blood Potassium Attending/Attestation - Attestation I have personally seen and examined this patient.: Yes I have fully participated in the care of the patient.: Yes I have reviewed all pertinent clinical information: Yes Notes (Text): 11/14/17 17:39 patient seen and examined 62-year-old female transferred to intensive care for severe respiratory distress and coughing Patient sedated and placed on ventilatory support CAT scan consistent with either pneumonia IV antibiotics Follow-up culture and sensitivity Follow-up ABG
[2017-11-14] MEDS: Vancomycin 1 gm/NS 200 ml 1 GM/200 ML BAG IVPB SCH ×2 (12:55→23:41)
[2017-11-14] MEDS: Azithromycin 500 MG in Sodium Chloride 0.9% 250 ML IVPB SCH (15:30)
--- NOTE | 2017-11-14 16:33 | CP.PCM.CON ---
History of Present Illness - History of Present Illness History of Present Illness: 62 y/o female with PMHx of COPD, CHF, HTN and s/p tracheostomy presents to the ED complaining of shortness of breath for 3 days. States she developed a fever, bodyaches, abdominal pain, nausea, and hemoptysis since Sunday. Otherwise she denies any diarrhea, constipation, dysuria, or recent steroid use or antibiotics. Patient states she is on 3L of supplemental O2 at home via her trach collar, denies use of ventilator. Transferred to ICU for vent support, pulmonary toilet and IV antibiotics - Medical History PMH: Anxiety, Asthma, Bipolar Disorder, Bronchitis, CHF, COPD (Emphysema,), Depression, Emphysema, Gall Bladder Disease, HTN, Pneumonia, Seizures, Sleep Apnea Denies: Arthritis, HIV, Hypercholesterolemia, Hypothyroidism, Chronic Kidney Disease, Rheumatoid Arthritis, Sexually Transmitted Disease Surgical History: Appendectomy, Cholecystectomy - [facility] Procedures ASSISTANCE WITH RESPIRATORY VENTILATION, <24 HRS, CPAP (03/14/16) CENTRAL VENOUS CATHETER PLACEMENT WITH GUIDANCE (10/24/14) CHANGE TRACHEOSTOMY DEVICE IN TRACHEA, EXTERNAL APPROACH (07/03/17) CONTINUOUS INVASIVE MECHANICAL VENTILATION <96 CONSEC HRS (03/07/14) ENTERAL INFUSION OF CONCENTRATED NUT. SUBSTANCES (09/17/12) INSERT ENDOTRACHEAL TUBE (09/17/12) INSERTION OF ENDOTRACHEAL AIRWAY INTO TRACHEA, VIA OPENING (06/12/17) INSERTION OF INFUSION DEV INTO SUP VENA CAVA, PERC APPROACH (04/27/17) INSERTION OF INFUSION DEVICE INTO UPPER VEIN, PERC APPROACH (10/04/17) INTRODUCE OF OTH THERAP SUBST INTO RESP TRACT, VIA OPENING (05/03/15) INTRODUCTION OF NUTRITIONAL INTO UP GI, VIA OPENING (06/12/17) NEBULIZER THERAPY (09/17/12) REMOVAL OF TRACHEOSTOMY DEVICE FROM TRACHEA, WARDROBE MISTRESS APPROACH (06/12/17) RESPIRATORY VENTILATION, 24-96 CONSECUTIVE HOURS (06/12/17) RESPIRATORY VENTILATION, GREATER THAN 96 CONSECUTIVE HOURS (02/27/17) Family History: States: Unknown Family Hx Review of Systems - Review of Systems All systems: reviewed and no additional remarkable complaints except - Constitutional Constitutional: As Per HPI - EENT Eyes: absent: As Per HPI, Blind Spots, Blurred Vision, Change in Vision, Decreased Night Vision, Diplopia, Discharge, Dry Eye, Exophthalmos, Floaters, Irritation, Itchy Eyes, Loss of Peripheral Vision, Pain, Photophobia, Requires Corrective Lenses, Sees Flashes, Spots in Vision, Tunnel Vision, Other Visual Disturbances, Loss of Vision, Other Ears: absent: As Per HPI, Decreased Hearing, Ear Discharge, Ear Pain, Tinnitus, Abnormal Hearing, Disequilibrium, Dizziness, Other Nose/Mouth/Throat: absent: As Per HPI, Epistaxis, Nasal Congestion, Nasal Discharge, Nasal Obstruction, Nasal Trauma, Nose Pain, Post Nasal Drip, Sinus Pain, Sinus Pressure, Bleeding Gums, Change in Voice, Dental Pain, Dry Mouth, Dysphagia, Halitosis, Hoarsness, Lip Swelling, Mouth Lesions, Mouth Pain, Odynophagia, Sore Throat, Throat Swelling, Tongue Swelling, Facial Pain, Neck Pain, Neck Mass, Other - Breasts Breasts: absent: As Per HPI, Change in Shape, Mass, Pain, Nipple Discharge, Nipple Inversion, Skin Changes, Swelling, Other - Cardiovascular Cardiovascular: As Per HPI - Respiratory Respiratory: As Per HPI, Cough, Dyspnea. absent: Hemoptysis Past Patient History - Infectious Disease Hx of Infectious Diseases: None - Tetanus Immunizations Tetanus Immunization: Unknown - Past Medical History & Family History Past Medical History?: Yes - Past Social History Smoking Status: Never Smoked - CARDIAC Hx Congestive Heart Failure: Yes Hx Hypercholesterolemia: No Hx Hypertension: Yes - PULMONARY Hx Asthma: Yes Hx Bronchitis: Yes Hx Chronic Obstructive Pulmonary Disease (COPD): Yes (Emphysema,) Hx Emphysema: Yes Hx Pneumonia: Yes Hx Sleep Apnea: Yes - NEUROLOGICAL Hx Seizures: Yes - HEENT Hx HEENT Problems: Yes Hx Cataracts: Yes - RENAL Hx Chronic Kidney Disease: No - ENDOCRINE/METABOLIC Hx Hypothyroidism: No - HEMATOLOGICAL/ONCOLOGICAL Hx Human Immunodeficiency Virus (HIV): No - INTEGUMENTARY Hx Dermatological Problems: No - MUSCULOSKELETAL/RHEUMATOLOGICAL Hx Arthritis: No Hx Rheumatoid Arthritis: No - GASTROINTESTINAL Hx Gall Bladder Disease: Yes - GENITOURINARY/GYNECOLOGICAL Hx Sexually Transmitted Disorders: No - PSYCHIATRIC Hx Anxiety: Yes Hx Bipolar Disorder: Yes Hx Depression: Yes Hx Substance Use: No - SURGICAL HISTORY Hx Appendectomy: Yes Hx Cholecystectomy: Yes - ANESTHESIA Hx Anesthesia: Yes Hx Anesthesia Reactions: No Hx Malignant Hyperthermia: No Meds Allergies/Adverse Reactions: Allergies Allergy/AdvReac Type Severity Reaction Status Date / Time aspirin Allergy ANAPHYLAXIS Verified 10/04/17 22:03 ceftriaxone sodium Allergy ANAPHYLAXIS Verified 10/04/17 22:03 [From Rocephin] ibuprofen [From Motrin] Allergy ANAPHYLAXIS Verified 10/04/17 22:03 iodine Allergy ANAPHYLAXIS Verified 10/04/17 22:03 raspberry Allergy ANAPHYLAXIS Verified 10/04/17 22:03 - Medications Medications: Current Medications Acetaminophen (Tylenol 325mg Tab) 500 mg PO Q4 PRN PRN Reason: Pain, Mild (1-3) Acetylcysteine (Acetylcysteine 20%) 4 ml INH Q6H [facility] Last Admin: 11/14/17 14:52 Dose: 4 ml Albuterol/Ipratropium (Duoneb 3 Mg/0.5 Mg (3 Ml) Ud) 3 ml INH RQ4 [facility] Last Admin: 11/14/17 14:51 Dose: 3 ml Enoxaparin Sodium (Lovenox) 40 mg SC DAILY [facility] Last Admin: 11/14/17 11:06 Dose: 40 mg Gabapentin (Neurontin) 800 mg PO TID [facility] Last Admin: 11/14/17 10:00 Dose: Not Given Guaifenesin (Robitussin) 200 mg PO Q4H PRN PRN Reason: Cough and congestion Last Admin: 11/14/17 04:30 Dose: 200 mg Piperacillin Sod/Tazobactam (Sod 3.375 gm/ Sodium Chloride) 100 mls @ 200 mls/ hr IVPB Q6H [facility] PRN Reason: Protocol Last Admin: 11/14/17 12:23 Dose: 200 mls/hr Propofol (Diprivan) 1,000 mg in 100 mls @ 4.082 mls/hr IV .Q24H PRN; Protocol; 5 MCG/KG/MIN PRN Reason: TITRATE PER MD ORDER Last Admin: 11/14/17 15:33 Dose: 70 mcg/kg/min, 57.153 mls/hr Vancomycin/Sodium Chloride (Vancomycin 1 Gm/Ns 200 Ml) 1 gm in 200 mls @ 133 mls/hr IVPB Q12H [facility] PRN Reason: Protocol Stop: 11/19/17 12:01 Last Admin: 11/14/17 12:55 Dose: 133 mls/hr Azithromycin 500 mg/ Sodium (Chloride) 250 mls @ 167 mls/hr IVPB Q24H [facility] PRN Reason: Protocol Insulin Human Regular (Novolin R) 0 unit SC ACHS [facility] PRN Reason: Protocol Last Admin: 11/14/17 11:33 Dose: Not Given Methylprednisolone (Solu-Medrol) 60 mg IVP Q8 [facility] Montelukast Sodium (Singulair) 10 mg PO HS [facility] Pantoprazole Sodium (Protonix Ec Tab) 40 mg PO DAILY [facility] Last Admin: 11/14/17 10:00 Dose: Not Given Quetiapine Fumarate (Seroquel Xr) 400 mg PO Q12 [facility] Last Admin: 11/14/17 10:00 Dose: Not Given Sertraline HCl (Zoloft) 100 mg PO BID [facility] Last Admin: 11/14/17 10:00 Dose: Not Given Trazodone HCl (Desyrel) 150 mg PO HS [facility] Physical Exam - Constitutional Appears: No Acute Distress, Chronically Ill - Head Exam Head Exam: NORMOCEPHALIC - Eye Exam Eye Exam: absent: Scleral icterus - ENT Exam ENT Exam: Mucous Membranes Dry - Neck Exam Neck exam: Negative for: Lymphadenopathy - Respiratory Exam Respiratory Exam: Decreased Breath Sounds, Prolonged Expiratory Phase, Rhonchi - Cardiovascular Exam Cardiovascular Exam: REGULAR RHYTHM, +S1, +S2 - GI/Abdominal Exam GI & Abdominal Exam: Diminished Bowel Sounds, Soft. absent: Tenderness - Rectal Exam Rectal Exam: Deferred - Exam Exam: NORMAL INSPECTION - Extremities Exam Extremities exam: Positive for: pedal edema, pedal pulses present. Negative for : calf tenderness, tenderness - Back Exam Back exam: absent: CVA tenderness (L), CVA tenderness (R), paraspinal tenderness - Neurological Exam Neurological exam: Altered, CN II-XII Intact, Oriented x3, Reflexes Normal - Psychiatric Exam Psychiatric exam: Depressed - Skin Skin Exam: Dry Results - Vital Signs Recent Vital Signs: Last Vital Signs Temp 98.8 F 11/14/17 10:00 Pulse 88 11/14/17 15:06 Resp 15 11/14/17 15:06 BP 123/66 11/14/17 15:06 Pulse Ox 98 11/14/17 15:06 - Labs Result Diagrams: 11/13/17 22:07 11/13/17 22:07 Labs: Laboratory Results - last 24 hr 11/13/17 11/13/17 11/13/17 22:07 22:07 22:15 WBC 16.5 H RBC 4.75 Hgb 11.9 Hct 36.5 MCV 76.7 L D MCH 25.1 L MCHC 32.7 L RDW 15.1 H Plt Count 223 MPV 8.0 Neut % (Auto) 72.5 Lymph % (Auto) 19.3 L [place] % (Auto) 6.5 Eos % (Auto) 1.3 Baso % (Auto) 0.4 Neut # (Auto) 12.0 H Lymph # (Auto) 3.2 [place] # (Auto) 1.1 H Eos # (Auto) 0.2 Baso # (Auto) 0.1 pO2 37 VBG pH 7.36 VBG pCO2 54 VBG HCO3 27.0 VBG Total CO2 32.2 H VBG O2 Sat (Calc) 71.8 H VBG Base Excess 3.7 H VBG Potassium 4.0 Glucose 114 H Lactate 1.1 Sodium 142 140.0 Potassium 4.2 Chloride 101 106.0 Carbon Dioxide 29 Anion Gap 17 BUN 16 Creatinine 0.8 Est GFR ( Amer) > 60 Est GFR (Non-Af Amer) > 60 POC Glucose (mg/dL) Random Glucose 123 H Calcium 10.0 Magnesium 1.9 Total Bilirubin 0.4 AST 18 ALT 14 Alkaline Phosphatase 155 H D Troponin I < 0.0120 NT-Pro-B Natriuret Pep 113 Total Protein 8.8 H Albumin 4.3 Globulin 4.6 H Albumin/Globulin Ratio 0.9 L Lipase Venous Blood Potassium 4.0 11/13/17 11/14/17 22:45 07:11 WBC RBC Hgb Hct MCV MCH MCHC RDW Plt Count MPV Neut % (Auto) Lymph % (Auto) [place] % (Auto) Eos % (Auto) Baso % (Auto) Neut # (Auto) Lymph # (Auto) [place] # (Auto) Eos # (Auto) Baso # (Auto) pO2 VBG pH VBG pCO2 VBG HCO3 VBG Total CO2 VBG O2 Sat (Calc) VBG Base Excess VBG Potassium Glucose Lactate Sodium Potassium Chloride Carbon Dioxide Anion Gap BUN Creatinine Est GFR ( Amer) Est GFR (Non-Af Amer) POC Glucose (mg/dL) 395 H Random Glucose Calcium Magnesium Total Bilirubin AST ALT Alkaline Phosphatase Troponin I NT-Pro-B Natriuret Pep Total Protein Albumin Globulin Albumin/Globulin Ratio Lipase 26 Venous Blood Potassium Assessment & Plan (1) COPD exacerbation Status: Acute (2) Chr obstructive pulmonary disease w/ acute lower respiratory infxn Status: Acute (3) Hypoxia Status: Acute (4) Pneumonia Status: Acute - Assessment and Plan (Free Text) Assessment: multifocal pneumonia with respiratory failure / severe COPD await cultures and serologies cont empiric IV rx
--- NOTE | 2017-11-14 16:38 | RAD ---
HISTORY: picc insertion COMPARISON: Chest x-ray performed 11/13/17 TECHNIQUE: Chest, one view. FINDINGS: Examination limited by habitus, hypoinflation, and patient obliquity. Right-sided PICC extends expected location right atrium. Tracheostomy tube. LUNGS: Patchy opacities predominantly within the left hemithorax consistent with multifocal pneumonia. Please note that chest x-ray has limited sensitivity for the detection of pulmonary masses. PLEURA: No significant pleural effusion identified. No definite pneumothorax . CARDIOVASCULAR: Cardiomegaly. OSSEOUS STRUCTURES: Osseous demineralization. Degenerative changes. VISUALIZED UPPER ABDOMEN: Unremarkable. OTHER FINDINGS: None. IMPRESSION: Tracheostomy tube. Right-sided PICC. Cardiomegaly. Evidence of multifocal pneumonia.
[2017-11-14] MEDS: Meropenem 1 GM in Sodium Chloride 0.9% 100 ML IVPB SCH (17:10)
--- NOTE | 2017-11-14 19:20 | CP.PCM.CON ---
<Teresa Jiménez E - Last Filed: 11/14/17 19:20> History of Present Illness - History of Present Illness History of Present Illness: Cardiology consult note ( Dr. Dietz's service) CC: Shortness of breath HPI as per EMR as patient was on sedation during cardiac evaluation HPI: Patient is a 62 year old female with history of COPD, HTN, CHF, sp tracheostomy who presented for 3 day history of shortness of breath associated with fever, bodyaches, abdominal pain, nausea and hemoptysis today. Cardiology consult for chest discomfort. PMH: COPD, HTN, CHF, sp tracheostomy, anxiety, depression, seizures PSH: appendectomy, cholecystectomy, tracheostomy Home meds: As per MAR, Trazodone, Protonix, Singulair, Seroquel, Gabapentin, Lantus Social hx: no tobacco, alcohol or drug use. Allergies: ASA, Rocephn, Ibuprofen, Iodine, raspberry Review of Systems - Review of Systems Review of Systems: Unable to evaluate as patient was on sedation Past Patient History - Infectious Disease Hx of Infectious Diseases: None - Tetanus Immunizations Tetanus Immunization: Unknown - Past Medical History & Family History Past Medical History?: Yes - Past Social History Smoking Status: Never Smoked - CARDIAC Hx Congestive Heart Failure: Yes Hx Hypercholesterolemia: No Hx Hypertension: Yes - PULMONARY Hx Asthma: Yes Hx Bronchitis: Yes Hx Chronic Obstructive Pulmonary Disease (COPD): Yes (Emphysema,) Hx Emphysema: Yes Hx Pneumonia: Yes Hx Sleep Apnea: Yes - NEUROLOGICAL Hx Seizures: Yes - HEENT Hx HEENT Problems: Yes Hx Cataracts: Yes - RENAL Hx Chronic Kidney Disease: No - ENDOCRINE/METABOLIC Hx Hypothyroidism: No - HEMATOLOGICAL/ONCOLOGICAL Hx Human Immunodeficiency Virus (HIV): No - INTEGUMENTARY Hx Dermatological Problems: No - MUSCULOSKELETAL/RHEUMATOLOGICAL Hx Arthritis: No Hx Rheumatoid Arthritis: No - GASTROINTESTINAL Hx Gall Bladder Disease: Yes - GENITOURINARY/GYNECOLOGICAL Hx Sexually Transmitted Disorders: No - PSYCHIATRIC Hx Anxiety: Yes Hx Bipolar Disorder: Yes Hx Depression: Yes Hx Substance Use: No - SURGICAL HISTORY Hx Appendectomy: Yes Hx Cholecystectomy: Yes - ANESTHESIA Hx Anesthesia: Yes Hx Anesthesia Reactions: No Hx Malignant Hyperthermia: No Meds Allergies/Adverse Reactions: Allergies Allergy/AdvReac Type Severity Reaction Status Date / Time aspirin Allergy ANAPHYLAXIS Verified 10/04/17 22:03 ceftriaxone sodium Allergy ANAPHYLAXIS Verified 10/04/17 22:03 [From Rocephin] ibuprofen [From Motrin] Allergy ANAPHYLAXIS Verified 10/04/17 22:03 iodine Allergy ANAPHYLAXIS Verified 10/04/17 22:03 raspberry Allergy ANAPHYLAXIS Verified 10/04/17 22:03 - Medications Medications: Current Medications Acetaminophen (Tylenol 325mg Tab) 500 mg PO Q4 PRN PRN Reason: Pain, Mild (1-3) Acetylcysteine (Acetylcysteine 20%) 4 ml INH Q6H SHAYLA Last Admin: 11/14/17 14:52 Dose: 4 ml Albuterol/Ipratropium (Duoneb 3 Mg/0.5 Mg (3 Ml) Ud) 3 ml INH RQ4 SHAYLA Last Admin: 11/14/17 16:35 Dose: 3 ml Enoxaparin Sodium (Lovenox) 40 mg SC DAILY [facility] Last Admin: 11/14/17 11:06 Dose: 40 mg Gabapentin (Neurontin) 800 mg PO TID [facility] Last Admin: 11/14/17 10:00 Dose: Not Given Guaifenesin (Robitussin) 200 mg PO Q4H PRN PRN Reason: Cough and congestion Last Admin: 11/14/17 04:30 Dose: 200 mg Propofol (Diprivan) 1,000 mg in 100 mls @ 4.082 mls/hr IV .Q24H PRN; Protocol; 5 MCG/KG/MIN PRN Reason: TITRATE PER MD ORDER Last Admin: 11/14/17 17:49 Dose: 70 mcg/kg/min, 57.153 mls/hr Vancomycin/Sodium Chloride (Vancomycin 1 Gm/Ns 200 Ml) 1 gm in 200 mls @ 133 mls/hr IVPB Q12H SHAYLA PRN Reason: Protocol Stop: 11/19/17 12:01 Last Admin: 11/14/17 12:55 Dose: 133 mls/hr Azithromycin 500 mg/ Sodium (Chloride) 250 mls @ 167 mls/hr IVPB Q24H SHAYLA PRN Reason: Protocol Last Admin: 11/14/17 15:30 Dose: 167 mls/hr Meropenem 1 gm/ Sodium (Chloride) 100 mls @ 100 mls/hr IVPB Q8H SHAYLA PRN Reason: Protocol Last Admin: 11/14/17 17:10 Dose: 100 mls/hr Insulin Human Regular (Novolin R) 0 unit SC Q6 SHAYLA PRN Reason: Protocol Methylprednisolone (Solu-Medrol) 60 mg IVP Q8 [facility] Last Admin: 11/14/17 17:12 Dose: 60 mg Montelukast Sodium (Singulair) 10 mg PO HS [facility] Pantoprazole Sodium (Protonix Ec Tab) 40 mg PO DAILY [facility] Last Admin: 11/14/17 10:00 Dose: Not Given Quetiapine Fumarate (Seroquel Xr) 400 mg PO Q12 [facility] Last Admin: 11/14/17 10:00 Dose: Not Given Sertraline HCl (Zoloft) 100 mg PO BID [facility] Last Admin: 11/14/17 10:00 Dose: Not Given Trazodone HCl (Desyrel) 150 mg PO HS [facility] Physical Exam - Constitutional Appears: Non-toxic - Respiratory Exam Respiratory Exam: NORMAL BREATHING PATTERN Additional comments: With tracheostomy - Cardiovascular Exam Cardiovascular Exam: REGULAR RHYTHM, +S1, +S2 - GI/Abdominal Exam GI & Abdominal Exam: Normal Bowel Sounds - Extremities Exam Extremities exam: Negative for: pedal edema Results - Vital Signs Recent Vital Signs: Last Vital Signs Temp 98.8 F 11/14/17 10:00 Pulse 102 H 11/14/17 18:07 Resp 18 11/14/17 18:07 BP 152/87 H 11/14/17 18:07 Pulse Ox 80 L 11/14/17 18:07 - Labs Result Diagrams: 11/13/17 22:07 11/13/17 22:07 Labs: Laboratory Results - last 24 hr 11/13/17 11/13/17 11/13/17 22:07 22:07 22:15 WBC 16.5 H RBC 4.75 Hgb 11.9 Hct 36.5 MCV 76.7 L D MCH 25.1 L MCHC 32.7 L RDW 15.1 H Plt Count 223 MPV 8.0 Neut % (Auto) 72.5 Lymph % (Auto) 19.3 L [place] % (Auto) 6.5 Eos % (Auto) 1.3 Baso % (Auto) 0.4 Neut # (Auto) 12.0 H Lymph # (Auto) 3.2 [place] # (Auto) 1.1 H Eos # (Auto) 0.2 Baso # (Auto) 0.1 pO2 37 VBG pH 7.36 VBG pCO2 54 VBG HCO3 27.0 VBG Total CO2 32.2 H VBG O2 Sat (Calc) 71.8 H VBG Base Excess 3.7 H VBG Potassium 4.0 Glucose 114 H Lactate 1.1 Sodium 142 140.0 Potassium 4.2 Chloride 101 106.0 Carbon Dioxide 29 Anion Gap 17 BUN 16 Creatinine 0.8 Est GFR ( Amer) > 60 Est GFR (Non-Af Amer) > 60 POC Glucose (mg/dL) Random Glucose 123 H Calcium 10.0 Magnesium 1.9 Total Bilirubin 0.4 AST 18 ALT 14 Alkaline Phosphatase 155 H D Troponin I < 0.0120 NT-Pro-B Natriuret Pep 113 Total Protein 8.8 H Albumin 4.3 Globulin 4.6 H Albumin/Globulin Ratio 0.9 L Lipase Venous Blood Potassium 4.0 11/13/17 11/14/17 11/14/17 22:45 07:11 11:21 WBC RBC Hgb Hct MCV MCH MCHC RDW Plt Count MPV Neut % (Auto) Lymph % (Auto) [place] % (Auto) Eos % (Auto) Baso % (Auto) Neut # (Auto) Lymph # (Auto) [place] # (Auto) Eos # (Auto) Baso # (Auto) pO2 VBG pH VBG pCO2 VBG HCO3 VBG Total CO2 VBG O2 Sat (Calc) VBG Base Excess VBG Potassium Glucose Lactate Sodium Potassium Chloride Carbon Dioxide Anion Gap BUN Creatinine Est GFR ( Amer) Est GFR (Non-Af Amer) POC Glucose (mg/dL) 395 H 317 H Random Glucose Calcium Magnesium Total Bilirubin AST ALT Alkaline Phosphatase Troponin I NT-Pro-B Natriuret Pep Total Protein Albumin Globulin Albumin/Globulin Ratio Lipase 26 Venous Blood Potassium 11/14/17 18:42 WBC RBC Hgb Hct MCV MCH MCHC RDW Plt Count MPV Neut % (Auto) Lymph % (Auto) [place] % (Auto) Eos % (Auto) Baso % (Auto) Neut # (Auto) Lymph # (Auto) [place] # (Auto) Eos # (Auto) Baso # (Auto) pO2 VBG pH VBG pCO2 VBG HCO3 VBG Total CO2 VBG O2 Sat (Calc) VBG Base Excess VBG Potassium Glucose Lactate Sodium Potassium Chloride Carbon Dioxide Anion Gap BUN Creatinine Est GFR ( Amer) Est GFR (Non-Af Amer) POC Glucose (mg/dL) 247 H Random Glucose Calcium Magnesium Total Bilirubin AST ALT Alkaline Phosphatase Troponin I NT-Pro-B Natriuret Pep Total Protein Albumin Globulin Albumin/Globulin Ratio Lipase Venous Blood Potassium Assessment & Plan (1) Respiratory distress Assessment and Plan: Patient is a 62 year old female with history of COPD, HTN, CHF, sp tracheostomy who presented for 3 day history of shortness of breath associated with fever, bodyaches, abdominal pain, nausea and hemoptysis today. Cardiology consult for chest discomfort: Imaging/ Labs: Chest X-ray: Tracheostomy tube. Right-sided PICC. Cardiomegaly. Evidence of multifocal pneumonia Chest CT: Multifocal infiltrates. No evidence of mucous plugging. Mild mediastinal lymphadenopathy. Mild cardiomegaly. Multiple old vertebral compression fractures. Mild hepatosplenomegaly. Tracheostomy noted. Echocardiogram (04/28/17): Mild concentric left ventricular hypertrophy. LV function is normal. LV EF is within normal range. Normal LV segmental wall motion. Aortic valve is moderately calcified and possibly bicuspied, Moderate valvular aortic stenosis Troponin negative X1 BNP: 113 Medications: - Acetylcysteine 4ml INH Q6H - Duonebs 3ML INH RQ4H - Azithromycin 500mg IV Q24H - Meropenem 1gm IV Q8H - Vanco 1gm IV Q12H - Singulair 10mg PO HS - Robitussin 200mg PO Q4H PRN Continue all current management for respiratory distress as per pulmonology and ICU team All management discussed with Dr. Dietz Status: Acute <Hardy Dietz - Last Filed: 11/14/17 20:32> Meds - Medications Medications: Current Medications Acetaminophen (Tylenol 325mg Tab) 500 mg PO Q4 PRN PRN Reason: Pain, Mild (1-3) Acetylcysteine (Acetylcysteine 20%) 4 ml INH Q6H [facility] Last Admin: 11/14/17 19:29 Dose: 4 ml Albuterol/Ipratropium (Duoneb 3 Mg/0.5 Mg (3 Ml) Ud) 3 ml INH RQ4 [facility] Last Admin: 11/14/17 19:29 Dose: 3 ml Enoxaparin Sodium (Lovenox) 40 mg SC DAILY [facility] Last Admin: 11/14/17 11:06 Dose: 40 mg Gabapentin (Neurontin) 800 mg PO TID [facility] Last Admin: 11/14/17 18:00 Dose: Not Given Guaifenesin (Robitussin) 200 mg PO Q4H PRN PRN Reason: Cough and congestion Last Admin: 11/14/17 04:30 Dose: 200 mg Propofol (Diprivan) 1,000 mg in 100 mls @ 4.082 mls/hr IV .Q24H PRN; Protocol; 5 MCG/KG/MIN PRN Reason: TITRATE PER MD ORDER Last Admin: 11/14/17 19:33 Dose: 70 mcg/kg/min, 57.153 mls/hr Vancomycin/Sodium Chloride (Vancomycin 1 Gm/Ns 200 Ml) 1 gm in 200 mls @ 133 mls/hr IVPB Q12H SHAYLA PRN Reason: Protocol Stop: 11/19/17 12:01 Last Admin: 11/14/17 12:55 Dose: 133 mls/hr Azithromycin 500 mg/ Sodium (Chloride) 250 mls @ 167 mls/hr IVPB Q24H SHAYLA PRN Reason: Protocol Last Admin: 11/14/17 15:30 Dose: 167 mls/hr Meropenem 1 gm/ Sodium (Chloride) 100 mls @ 100 mls/hr IVPB Q8H SHAYLA PRN Reason: Protocol Last Admin: 11/14/17 17:10 Dose: 100 mls/hr Insulin Human Regular (Novolin R) 0 unit SC Q6 SHAYLA PRN Reason: Protocol Last Admin: 11/14/17 18:00 Dose: Not Given Methylprednisolone (Solu-Medrol) 60 mg IVP Q8 [facility] Last Admin: 11/14/17 17:12 Dose: 60 mg Montelukast Sodium (Singulair) 10 mg PO HS [facility] Pantoprazole Sodium (Protonix Ec Tab) 40 mg PO DAILY [facility] Last Admin: 11/14/17 10:00 Dose: Not Given Quetiapine Fumarate (Seroquel Xr) 400 mg PO Q12 [facility] Last Admin: 11/14/17 10:00 Dose: Not Given Sertraline HCl (Zoloft) 100 mg PO BID [facility] Last Admin: 11/14/17 18:00 Dose: Not Given Trazodone HCl (Desyrel) 150 mg PO HS [facility] Results - Vital Signs Recent Vital Signs: Last Vital Signs Temp 98.8 F 11/14/17 10:00 Pulse 102 H 11/14/17 18:07 Resp 18 09/19/18 18:07 BP 152/87 H 11/14/17 18:07 Pulse Ox 80 L 11/14/17 18:07 - Labs Result Diagrams: 11/13/17 22:07 11/13/17 22:07 Labs: Laboratory Results - last 24 hr 11/13/17 11/13/17 11/13/17 22:07 22:07 22:15 WBC 16.5 H RBC 4.75 Hgb 11.9 Hct 36.5 MCV 76.7 L D MCH 25.1 L MCHC 32.7 L RDW 15.1 H Plt Count 223 MPV 8.0 Neut % (Auto) 72.5 Lymph % (Auto) 19.3 L [place] % (Auto) 6.5 Eos % (Auto) 1.3 Baso % (Auto) 0.4 Neut # (Auto) 12.0 H Lymph # (Auto) 3.2 [place] # (Auto) 1.1 H Eos # (Auto) 0.2 Baso # (Auto) 0.1 pO2 37 VBG pH 7.36 VBG pCO2 54 VBG HCO3 27.0 VBG Total CO2 32.2 H VBG O2 Sat (Calc) 71.8 H VBG Base Excess 3.7 H VBG Potassium 4.0 Glucose 114 H Lactate 1.1 Sodium 142 140.0 Potassium 4.2 Chloride 101 106.0 Carbon Dioxide 29 Anion Gap 17 BUN 16 Creatinine 0.8 Est GFR ( Amer) > 60 Est GFR (Non-Af Amer) > 60 POC Glucose (mg/dL) Random Glucose 123 H Calcium 10.0 Magnesium 1.9 Total Bilirubin 0.4 AST 18 ALT 14 Alkaline Phosphatase 155 H D Troponin I < 0.0120 NT-Pro-B Natriuret Pep 113 Total Protein 8.8 H Albumin 4.3 Globulin 4.6 H Albumin/Globulin Ratio 0.9 L Lipase Venous Blood Potassium 4.0 11/13/17 11/14/17 11/14/17 22:45 07:11 11:21 WBC RBC Hgb Hct MCV MCH MCHC RDW Plt Count MPV Neut % (Auto) Lymph % (Auto) [place] % (Auto) Eos % (Auto) Baso % (Auto) Neut # (Auto) Lymph # (Auto) [place] # (Auto) Eos # (Auto) Baso # (Auto) pO2 VBG pH VBG pCO2 VBG HCO3 VBG Total CO2 VBG O2 Sat (Calc) VBG Base Excess VBG Potassium Glucose Lactate Sodium Potassium Chloride Carbon Dioxide Anion Gap BUN Creatinine Est GFR ( Amer) Est GFR (Non-Af Amer) POC Glucose (mg/dL) 395 H 317 H Random Glucose Calcium Magnesium Total Bilirubin AST ALT Alkaline Phosphatase Troponin I NT-Pro-B Natriuret Pep Total Protein Albumin Globulin Albumin/Globulin Ratio Lipase 26 Venous Blood Potassium 11/14/17 18:42 WBC RBC Hgb Hct MCV MCH MCHC RDW Plt Count MPV Neut % (Auto) Lymph % (Auto) [place] % (Auto) Eos % (Auto) Baso % (Auto) Neut # (Auto) Lymph # (Auto) [place] # (Auto) Eos # (Auto) Baso # (Auto) pO2 VBG pH VBG pCO2 VBG HCO3 VBG Total CO2 VBG O2 Sat (Calc) VBG Base Excess VBG Potassium Glucose Lactate Sodium Potassium Chloride Carbon Dioxide Anion Gap BUN Creatinine Est GFR ( Amer) Est GFR (Non-Af Amer) POC Glucose (mg/dL) 247 H Random Glucose Calcium Magnesium Total Bilirubin AST ALT Alkaline Phosphatase Troponin I NT-Pro-B Natriuret Pep Total Protein Albumin Globulin Albumin/Globulin Ratio Lipase Venous Blood Potassium Assessment & Plan - Assessment and Plan (Free Text) Assessment: Patient seen and evaluated personally by [place] Plan of care d/w the medical billing service and as docuemented
--- NOTE | 2017-11-14 21:55 | CP.PCM.HP ---
Present on Admission - Present on Admission Any Indicators Present on Admission: No Past Patient History - Infectious Disease Hx of Infectious Diseases: None - Tetanus Immunizations Tetanus Immunization: Unknown - Past Medical History & Family History Past Medical History?: Yes - Past Social History Smoking Status: Never Smoked - CARDIAC Hx Congestive Heart Failure: Yes Hx Hypercholesterolemia: No Hx Hypertension: Yes - PULMONARY Hx Asthma: Yes Hx Bronchitis: Yes Hx Chronic Obstructive Pulmonary Disease (COPD): Yes (Emphysema,) Hx Emphysema: Yes Hx Pneumonia: Yes Hx Sleep Apnea: Yes - NEUROLOGICAL Hx Seizures: Yes - HEENT Hx HEENT Problems: Yes Hx Cataracts: Yes - RENAL Hx Chronic Kidney Disease: No - ENDOCRINE/METABOLIC Hx Hypothyroidism: No - HEMATOLOGICAL/ONCOLOGICAL Hx Human Immunodeficiency Virus (HIV): No - INTEGUMENTARY Hx Dermatological Problems: No - MUSCULOSKELETAL/RHEUMATOLOGICAL Hx Arthritis: No Hx Rheumatoid Arthritis: No - GASTROINTESTINAL Hx Gall Bladder Disease: Yes - GENITOURINARY/GYNECOLOGICAL Hx Sexually Transmitted Disorders: No - PSYCHIATRIC Hx Anxiety: Yes Hx Bipolar Disorder: Yes Hx Depression: Yes Hx Substance Use: No - SURGICAL HISTORY Hx Appendectomy: Yes Hx Cholecystectomy: Yes - ANESTHESIA Hx Anesthesia: Yes Hx Anesthesia Reactions: No Hx Malignant Hyperthermia: No Meds Allergies/Adverse Reactions: Allergies Allergy/AdvReac Type Severity Reaction Status Date / Time aspirin Allergy ANAPHYLAXIS Verified 10/04/17 22:03 ceftriaxone sodium Allergy ANAPHYLAXIS Verified 10/04/17 22:03 [From Rocephin] ibuprofen [From Motrin] Allergy ANAPHYLAXIS Verified 10/04/17 22:03 iodine Allergy ANAPHYLAXIS Verified 10/04/17 22:03 raspberry Allergy ANAPHYLAXIS Verified 10/04/17 22:03 Results - Vital Signs Recent Vital Signs: Last Vital Signs Temp 98.6 F 11/14/17 20:00 Pulse 97 H 11/14/17 20:00 Resp 20 11/14/17 20:00 BP 108/61 11/14/17 20:06 Pulse Ox 95 11/14/17 20:00 - Labs Result Diagrams: 11/19/17 06:29 11/19/17 06:29 Labs: Laboratory Results - last 24 hr 11/13/17 11/13/17 11/13/17 22:07 22:07 22:15 WBC 16.5 H RBC 4.75 Hgb 11.9 Hct 36.5 MCV 76.7 L D MCH 25.1 L MCHC 32.7 L RDW 15.1 H Plt Count 223 MPV 8.0 Neut % (Auto) 72.5 Lymph % (Auto) 19.[address] [place] % (Auto) 6.5 Eos % (Auto) 1.3 Baso % (Auto) 0.4 Neut # (Auto) 12.0 H Lymph # (Auto) 3.2 [place] # (Auto) 1.1 H Eos # (Auto) 0.2 Baso # (Auto) 0.1 pO2 37 VBG pH 7.36 VBG pCO2 54 VBG HCO3 27.0 VBG Total CO2 32.2 H VBG O2 Sat (Calc) 71.8 H VBG Base Excess 3.7 H VBG Potassium 4.0 Glucose 114 H Lactate 1.1 Sodium 142 140.0 Potassium 4.2 Chloride 101 106.0 Carbon Dioxide 29 Anion Gap 17 BUN 16 Creatinine 0.8 Est GFR ( Amer) > 60 Est GFR (Non-Af Amer) > 60 POC Glucose (mg/dL) Random Glucose 123 H Calcium 10.0 Magnesium 1.9 Total Bilirubin 0.4 AST 18 ALT 14 Alkaline Phosphatase 155 H D Troponin I < 0.0120 NT-Pro-B Natriuret Pep 113 Total Protein 8.8 H Albumin 4.3 Globulin 4.6 H Albumin/Globulin Ratio 0.9 L Lipase Venous Blood Potassium 4.0 Mycoplasma pneumon IgM 11/13/17 11/14/17 11/14/17 22:45 07:11 11:21 WBC RBC Hgb Hct MCV MCH MCHC RDW Plt Count MPV Neut % (Auto) Lymph % (Auto) [place] % (Auto) Eos % (Auto) Baso % (Auto) Neut # (Auto) Lymph # (Auto) [place] # (Auto) Eos # (Auto) Baso # (Auto) pO2 VBG pH VBG pCO2 VBG HCO3 VBG Total CO2 VBG O2 Sat (Calc) VBG Base Excess VBG Potassium Glucose Lactate Sodium Potassium Chloride Carbon Dioxide Anion Gap BUN Creatinine Est GFR ( Amer) Est GFR (Non-Af Amer) POC Glucose (mg/dL) 395 H 317 H Random Glucose Calcium Magnesium Total Bilirubin AST ALT Alkaline Phosphatase Troponin I NT-Pro-B Natriuret Pep Total Protein Albumin Globulin Albumin/Globulin Ratio Lipase 26 Venous Blood Potassium Mycoplasma pneumon IgM 11/14/17 11/14/17 18:42 18:58 WBC RBC Hgb Hct MCV MCH MCHC RDW Plt Count MPV Neut % (Auto) Lymph % (Auto) [place] % (Auto) Eos % (Auto) Baso % (Auto) Neut # (Auto) Lymph # (Auto) [place] # (Auto) Eos # (Auto) Baso # (Auto) pO2 VBG pH VBG pCO2 VBG HCO3 VBG Total CO2 VBG O2 Sat (Calc) VBG Base Excess VBG Potassium Glucose Lactate Sodium Potassium Chloride Carbon Dioxide Anion Gap BUN Creatinine Est GFR ( Amer) Est GFR (Non-Af Amer) POC Glucose (mg/dL) 247 H Random Glucose Calcium Magnesium Total Bilirubin AST ALT Alkaline Phosphatase Troponin I NT-Pro-B Natriuret Pep Total Protein Albumin Globulin Albumin/Globulin Ratio Lipase Venous Blood Potassium Mycoplasma pneumon IgM Negative
[2017-11-15] MEDS: (Novolin R) Insulin Human Regular 100 units/ml vial SC SCH ×4 (00:36→18:58)
[2017-11-15] MEDS: Meropenem 1 GM in Sodium Chloride 0.9% 100 ML IVPB SCH ×3 (00:44→17:34)
[2017-11-15] MEDS: Albuterol-Ipratrop 3 mg / 0.5 (3 ml) UD INH SCH ×5 (01:12→19:23)
[2017-11-15] MEDS: Propofol 10 mg/ml 1,000 MG/100 ML VIAL IV PRN ×5 (01:30→09:25)
[2017-11-15] MEDS: Acetylcysteine 20% Inhal Soln (4ml) INH SCH ×2 (03:16→16:12)
[2017-11-15 06:34] LABS: BASO % 0.1 % (0.0-2.0); HEMOGLOBIN 10.8 g/dL (11.0-16.0); LYMPH # 0.6 K/uL (1.0-4.3); LYMPH % 3.9 % (20.0-40.0); MEAN CELL VOLUME 78.8 fL (81.0-99.0); MEAN CORPUSCULAR HGB CONC 31.8 g/dL (33.0-37.0); MONO # 0.5 K/uL (0.0-0.8); MONO % 3.1 % (0.0-10.0); NEUT # 14.2 K/uL (1.8-7.0); NEUT % 92.9 % (50.0-75.0); NRBC % 0.1 % (0.0-2.0); PLATELET COUNT 174 K/uL (130-400); RED CELL DISTRIBUTION WIDTH 14.8 % (11.5-14.5); WHITE BLOOD COUNT 15.3 K/uL (4.8-10.8)
[2017-11-15 06:50] LABS: ALBUMIN 3.9 g/dL (3.5-5.0); ALT/SGPT 19 U/L (9-52); AST/SGOT 24 U/L (14-36); BLOOD UREA NITROGEN 25 mg/dL (7-17); CALCIUM 9.2 mg/dl (8.6-10.4); GFR NON-AFRICAN AMERICAN > 60
--- NOTE | 2017-11-15 06:55 | CARD ---
APPROVED REPORT Date of service: 11/13/2017 EKG Measurement Heart [id number] <Conclusion> Normal sinus rhythm Normal ECG
--- NOTE | 2017-11-15 08:52 | PN ---
PROCEDURE DATE: 11/14/2017 CHIEF COMPLAINT: Shortness of breath x3 days. HISTORY OF PRESENT ILLNESS: This is a 62-year-old female well known to me with history of type 2 diabetes, with chronic obstructive asthma, she has long-term tracheostomy, hypertension, major depressive psychosis, seizure disorder, status post multiple surgeries, nonsmoker, non-EtOH user, compliant with diet, medications, and followup. She is on home oxygen therapy, nebulizer, and she has a tracheostomy with humidifier. Three days ago, she started having gradually worsening dyspnea on exertion associated with cough, congestion, sputum production with some blood-streaked sputum as well, fever, chills, rigors, body aches, tiredness, malaise, and fatigue. The patient had tried to suction herself when she used higher dose of the oxygen with no response. The patient came to the emergency room, started to have thick greenish sputum production. She appears weak. She had Rapid Response today when she developed desaturation, inability to bring up sputum production, and the patient was transported to ICU. The patient is in the ICU and she is more comfortable, but she is sweating, she is diaphoretic. REVIEW OF SYSTEMS: Negative for joint pain, hip pain, neck pain. She has tingling and numbness in the feet. She has leg swelling. She denied any dizziness or vertigo. She is feeling herself depressed. PAST MEDICAL HISTORY: Bronchial asthma, tracheostomy, anxiety, depression, diabetes, hypertension. SOCIAL HISTORY: Nonsmoker, non-EtOH user. CURRENT MEDICATIONS: The patient is on multiple medications including trazodone, Zoloft, Seroquel, Protonix, Singulair, Ativan, Neurontin, aspirin, tramadol, Novolin R, Lantus, DuoNeb. PHYSICAL EXAMINATION: GENERAL: An elderly female, right now she is comfortable. VITAL SIGNS: BP 108/61, pulse 91, respiratory rate 20, temperature 98.6. SKIN: Senile turgor. No bruises. No purpura. No petechiae. HEENT: Atraumatic, normocephalic. Negative pallor. Negative jaundice. Extraocular movements are intact. NECK: Supple. No JVD. No lymph node. No thyromegaly. No carotid bruits. CHEST: Chest wall bilateral symmetrical expansion. LUNGS: Bilaterally decreased air entry. Positive inspiratory and expiratory rhonchi. CVS: S1, S2, regular. No heave, no thrill. ABDOMEN: Soft, nontender. Bowel sounds are positive. RECTAL: No masses. No bleeding. EXTREMITIES: No clubbing, or cyanosis. There is +2 nonpitting edema. 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 ASSESSMENT: 1. Tracheobronchitis, rule out pneumonia. 2. Chronic obstructive asthma, persistent. 3. Tracheostomy, most of the time tracheostomy is causing infection. 4. Diabetes. 5. Depression. PLAN: Admit. Detailed orders written. Seen and examined. Ad Khan MD
[2017-11-15] MEDS: Enoxaparin 40 mg Syringe SC SCH (08:59)
[2017-11-15 09:03] LABS: LYMPHOCYTE 4 % (20-40); MONOCYTE 3 % (0-10); NEUTROPHIL 93 % (50-75); PLATELET ESTIMATE NORMAL (NORMAL); TOTAL CELLS COUNTED 100
[2017-11-15 09:04] LABS: HYPOCHROMIC SLIGHT
[2017-11-15] MEDS: Vancomycin 1 gm/NS 200 ml 1 GM/200 ML BAG IVPB SCH (11:25)
[2017-11-15] MEDS: Azithromycin 500 MG in Sodium Chloride 0.9% 250 ML IVPB SCH (13:33)
[2017-11-15] MEDS: Dexmedetomidine Hydrochloride 200 MCG in Sodium Chloride 0.9% 48 ML IV PRN ×2 (13:49→17:12)
--- NOTE | 2017-11-15 15:22 | CP.CCUPN ---
<Giuliana Murrieta - Last Filed: 11/15/17 15:23> CCU Subjective - Physician Review Subjective (Free Text): 11/15/17 15:23 ICU Progress note Patient seen and examined this morning. Patient noted to be somnolent however patient was still on Propofol. Daughter not present at bedside. CCU Objective - Vital Signs / Intake & Output Vital Signs (Last 4 hours): Vital Signs Temp Pulse Resp BP Pulse Ox 11/15/17 15:06 70 21 130/76 93 L 11/15/17 15:00 72 15 93 L 11/15/17 14:06 90 12 131/77 96 11/15/17 14:00 95 H 22 98 11/15/17 13:06 95 H 13 127/78 98 11/15/17 13:00 95 H 12 98 11/15/17 12:06 103 H 21 153/102 H 97 11/15/17 12:00 98.8 F 84 20 98 Intake and Output (Last 8hrs): Intake & Output 11/15/17 11/15/17 11/15/17 06:59 14:59 22:59 Intake Total 1126.4 893.5 0 Balance 1126.4 893.5 0 Weight 278 lb 6.4 oz Intake: IV 380 270.3 Intake, IV Amount 746.4 623.2 Left Antecubital 0 Right Distal Port 446.4 223.2 Right Proximal Port 300 400 Oral 0 0 Other: # Voids Urine, Voided 1 # Bowel Movements 0 - Physical Exam Physical Exam Limitations: Positive for: Other (Somnolent on Propofol) Head: Positive for: Atraumatic, Normocephalic Pupils: Positive for: PERRL Mouth: Positive for: Moist Mucous Membranes Neck: Positive for: Other (Trach collar in place attached to Vent) Respiratory/Chest: Positive for: Decreased Breath Sounds (possibly due to body habitus), Other (Patient was somnolent, unable to direct to take deep breaths) Cardiovascular: Positive for: Regular Rate and Rhythm, Normal S1, S2 Abdomen: Positive for: Other (Obese abdomen). Negative for: Tenderness, Peritoneal Signs Upper Extremity: Positive for: NORMAL PULSES. Negative for: Edema Lower Extremity: Negative for: CALF TENDERNESS Skin: Positive for: Warm, Dry Psychiatric: Positive for: Other (Sedated on Propofol) - Medications Active Medications: Active Medications Generic Name Dose Route Start Last Admin Trade Name Freq PRN Reason Stop Dose Admin Acetaminophen 650 mg 11/15/17 09:45 Tylenol 325mg Tab PO Q4 PRN Pain, Mild (1-3) Acetylcysteine 4 ml 11/14/17 03:30 11/15/17 03:16 Acetylcysteine 20% INH 4 ml Q6H SHAYLA Administration Albuterol/Ipratropium 3 ml 11/14/17 04:00 11/15/17 08:29 Duoneb 3 Mg/0.5 Mg (3 Ml) Ud INH 3 ml RQ4 SHAYLA Administration Enoxaparin Sodium 40 mg 11/14/17 10:00 11/15/17 08:59 Lovenox SC 40 mg DAILY SHAYLA Administration Gabapentin 800 mg 11/14/17 10:00 11/14/17 18:00 Neurontin PO Not Given TID SHAYLA Guaifenesin 200 mg 11/14/17 00:06 11/14/17 04:30 Robitussin PO 200 mg Q4H PRN Administration Cough and congestion Vancomycin/Sodium Chloride 1 gm in 200 mls @ 133 mls/hr 11/14/17 12:00 11:25 Vancomycin 1 Gm/Ns 200 Ml IVPB 11/19/17 12:01 133 mls/hr Q12H SHAYLA Administration Protocol Azithromycin 500 mg/ Sodium 250 mls @ 167 mls/hr 11/14/17 14:30 11/15/17 13: 33 Chloride IVPB 167 mls/hr Q24H SHAYLA Administration Protocol Meropenem 1 gm/ Sodium 100 mls @ 100 mls/hr 11/14/17 17:00 11/15/17 09:01 Chloride IVPB 100 mls/hr Q8H SHAYLA Administration Protocol Dexmedetomidine HCl 200 mcg/ 50 mls @ 6.31 mls/hr 11/15/17 13:15 11/15/17 14: 00 Sodium Chloride IV 0.2 mcg/kg/hr TITR PRN 6.31 mls/hr Agitation Titration Protocol 0.2 MCG/KG/HR Insulin Human Regular 0 unit 11/14/17 18:00 11/15/17 11:24 Novolin R SC 4 u Q6 SHAYLA Administration Protocol Methylprednisolone 60 mg 11/14/17 14:00 11/15/17 13:43 Solu-Medrol IVP 60 mg Q8 SHAYLA Administration Montelukast Sodium 10 mg 11/14/17 22:00 Singulair PO HS [facility] Pantoprazole Sodium 40 mg 11/14/17 10:00 11/14/17 10:00 Protonix Ec Tab PO Not Given DAILY SHAYLA Quetiapine Fumarate 400 mg 11/14/17 10:00 11/14/17 10:00 Seroquel Xr PO Not Given Q12 SHAYLA Sertraline HCl 100 mg 11/14/17 10:00 11/14/17 18:00 Zoloft PO Not Given BID SHAYLA Trazodone HCl 150 mg 11/14/17 22:00 Desyrel PO HS SHAYLA - Patient Studies Lab Studies: Microbiology Studies 11/13/17 22:01 Blood Culture - Preliminary Blood-Venous NO GROWTH AFTER 24 HOURS 11/13/17 22:31 Blood Culture - Preliminary Blood-Venous NO GROWTH AFTER 24 HOURS 11/14/17 19:01 Gram Stain - Final Sputum Induced Lab Studies 11/15/17 11/15/17 11/15/17 Range/Units 11:19 06:17 06:17 WBC 15.3 H (4.8-10.8) K/uL RBC 4.30 (3.80-5.20) Mil/uL Hgb 10.8 L (11.0-16.0) g/dL Hct 33.9 L (34.0-47.0) % MCV 78.8 L D (81.0-99.0) fL MCH 25.0 L (27.0-31.0) pg MCHC 31.8 L (33.0-37.0) g/dL RDW 14.8 H (11.5-14.5) % Plt Count 174 (130-400) K/uL MPV 9.0 (7.2-11.7) fL Neut % (Auto) 92.9 H (50.0-75.0) % Lymph % (Auto) 3.9 L (20.0-40.0) % Will % (Auto) 3.1 (0.0-10.0) % Eos % (Auto) 0.0 (0.0-4.0) % Baso % (Auto) 0.1 (0.0-2.0) % Neut # (Auto) 14.2 H (1.8-7.0) K/uL Lymph # (Auto) 0.6 L (1.0-4.3) K/uL Will # (Auto) 0.5 (0.0-0.8) K/uL Eos # (Auto) 0.0 (0.0-0.7) K/uL Baso # (Auto) 0.0 (0.0-0.2) K/uL Neutrophils % (Manual) 93 H (50-75) % Lymphocytes % (Manual) 4 L (20-40) % Monocytes % (Manual) 3 (0-10) % Platelet Estimate Normal (NORMAL) Hypochromasia (manual) Slight Sodium 140 (132-148) mmol/L Potassium 5.2 (3.6-5.2) mmol/L Chloride 104 (98-107) mmol/L Carbon Dioxide 22 (22-30) mmol/L Anion Gap 19 (10-20) BUN 25 H (7-17) mg/dL Creatinine 0.8 (0.7-1.2) mg/dL Est GFR ( Amer) > 60 Est GFR (Non-Af Amer) > 60 POC Glucose (mg/dL) 298 H (65-110) mg/dL Random Glucose 412 H* D (65-105) mg/dL Calcium 9.2 (8.6-10.4) mg/dl Phosphorus 3.9 (2.5-4.5) mg/dL Magnesium 2.1 (1.6-2.3) mg/dL Total Bilirubin 0.5 (0.2-1.3) mg/dL AST 24 (14-36) U/L ALT 19 (9-52) U/L Alkaline Phosphatase 111 (38-126) U/L Total Protein 7.9 (6.3-8.3) g/dL Albumin 3.9 (3.5-5.0) g/dL Globulin 4.0 H (2.2-3.9) gm/dL Albumin/Globulin Ratio 1.0 (1.0-2.1) Mycoplasma pneumon IgM (NEGATIVE) 11/15/17 11/14/17 11/14/17 Range/Units 05:55 23:42 18:58 WBC (4.8-10.8) K/uL RBC (3.80-5.20) Mil/uL Hgb (11.0-16.0) g/dL Hct (34.0-47.0) % MCV (81.0-99.0) fL MCH (27.0-31.0) pg MCHC (33.0-37.0) g/dL RDW (11.5-14.5) % Plt Count (130-400) K/uL MPV (7.2-11.7) fL Neut % (Auto) (50.0-75.0) % Lymph % (Auto) (20.0-40.0) % Will % (Auto) (0.0-10.0) % Eos % (Auto) (0.0-4.0) % Baso % (Auto) (0.0-2.0) % Neut # (Auto) (1.8-7.0) K/uL Lymph # (Auto) (1.0-4.3) K/uL Will # (Auto) (0.0-0.8) K/uL Eos # (Auto) (0.0-0.7) K/uL Baso # (Auto) (0.0-0.2) K/uL Neutrophils % (Manual) (50-75) % Lymphocytes % (Manual) (20-40) % Monocytes % (Manual) (0-10) % Platelet Estimate (NORMAL) Hypochromasia (manual) Sodium (132-148) mmol/L Potassium (3.6-5.2) mmol/L Chloride (98-107) mmol/L Carbon Dioxide (22-30) mmol/L Anion Gap (10-20) BUN (7-17) mg/dL Creatinine (0.7-1.2) mg/dL Est GFR ( Amer) Est GFR (Non-Af Amer) POC Glucose (mg/dL) 438 H* 394 H (65-110) mg/dL Random Glucose (65-105) mg/dL Calcium (8.6-10.4) mg/dl Phosphorus (2.5-4.5) mg/dL Magnesium (1.6-2.3) mg/dL Total Bilirubin (0.2-1.3) mg/dL AST (14-36) U/L ALT (9-52) U/L Alkaline Phosphatase (38-126) U/L Total Protein (6.3-8.3) g/dL Albumin (3.5-5.0) g/dL Globulin (2.2-3.9) gm/dL Albumin/Globulin Ratio (1.0-2.1) Mycoplasma pneumon IgM Negative (NEGATIVE) 11/14/17 11/14/17 Range/Units 18:42 11:21 WBC (4.8-10.8) K/uL RBC (3.80-5.20) Mil/uL Hgb (11.0-16.0) g/dL Hct (34.0-47.0) % MCV (81.0-99.0) fL MCH (27.0-31.0) pg MCHC (33.0-37.0) g/dL RDW (11.5-14.5) % Plt Count (130-400) K/uL MPV (7.2-11.7) fL Neut % (Auto) (50.0-75.0) % Lymph % (Auto) (20.0-40.0) % Will % (Auto) (0.0-10.0) % Eos % (Auto) (0.0-4.0) % Baso % (Auto) (0.0-2.0) % Neut # (Auto) (1.8-7.0) K/uL Lymph # (Auto) (1.0-4.3) K/uL Will # (Auto) (0.0-0.8) K/uL Eos # (Auto) (0.0-0.7) K/uL Baso # (Auto) (0.0-0.2) K/uL Neutrophils % (Manual) (50-75) % Lymphocytes % (Manual) (20-40) % Monocytes % (Manual) (0-10) % Platelet Estimate (NORMAL) Hypochromasia (manual) Sodium (132-148) mmol/L Potassium (3.6-5.2) mmol/L Chloride (98-107) mmol/L Carbon Dioxide (22-30) mmol/L Anion Gap (10-20) BUN (7-17) mg/dL Creatinine (0.7-1.2) mg/dL Est GFR ( Amer) Est GFR (Non-Af Amer) POC Glucose (mg/dL) 247 H 317 H (65-110) mg/dL Random Glucose (65-105) mg/dL Calcium (8.6-10.4) mg/dl Phosphorus (2.5-4.5) mg/dL Magnesium (1.6-2.3) mg/dL Total Bilirubin (0.2-1.3) mg/dL AST (14-36) U/L ALT (9-52) U/L Alkaline Phosphatase (38-126) U/L Total Protein (6.3-8.3) g/dL Albumin (3.5-5.0) g/dL Globulin (2.2-3.9) gm/dL Albumin/Globulin Ratio (1.0-2.1) Mycoplasma pneumon IgM (NEGATIVE) Laboratory Results - last 24 hr 11/14/17 11/14/17 11/14/17 11:21 18:42 18:58 WBC RBC Hgb Hct MCV MCH MCHC RDW Plt Count MPV Neut % (Auto) Lymph % (Auto) Will % (Auto) Eos % (Auto) Baso % (Auto) Neut # (Auto) Lymph # (Auto) Will # (Auto) Eos # (Auto) Baso # (Auto) Neutrophils % (Manual) Lymphocytes % (Manual) Monocytes % (Manual) Platelet Estimate Hypochromasia (manual) Sodium Potassium Chloride Carbon Dioxide Anion Gap BUN Creatinine Est GFR ( Amer) Est GFR (Non-Af Amer) POC Glucose (mg/dL) 317 H 247 H Random Glucose Calcium Phosphorus Magnesium Total Bilirubin AST ALT Alkaline Phosphatase Total Protein Albumin Globulin Albumin/Globulin Ratio Mycoplasma pneumon IgM Negative 11/14/17 11/15/17 11/15/17 23:42 05:55 06:17 WBC 15.3 H RBC 4.30 Hgb 10.8 L Hct 33.9 L MCV 78.8 L D MCH 25.0 L MCHC 31.8 L RDW 14.8 H Plt Count 174 MPV 9.0 Neut % (Auto) 92.9 H Lymph % (Auto) 3.9 L Will % (Auto) 3.1 Eos % (Auto) 0.0 Baso % (Auto) 0.1 Neut # (Auto) 14.2 H Lymph # (Auto) 0.6 L Will # (Auto) 0.5 Eos # (Auto) 0.0 Baso # (Auto) 0.0 Neutrophils % (Manual) 93 H Lymphocytes % (Manual) 4 L Monocytes % (Manual) 3 Platelet Estimate Normal Hypochromasia (manual) Slight Sodium Potassium Chloride Carbon Dioxide Anion Gap BUN Creatinine Est GFR ( Amer) Est GFR (Non-Af Amer) POC Glucose (mg/dL) 394 H 438 H* Random Glucose Calcium Phosphorus Magnesium Total Bilirubin AST ALT Alkaline Phosphatase Total Protein Albumin Globulin Albumin/Globulin Ratio Mycoplasma pneumon IgM 11/15/17 11/15/17 06:17 11:19 WBC RBC Hgb Hct MCV MCH MCHC RDW Plt Count MPV Neut % (Auto) Lymph % (Auto) Will % (Auto) Eos % (Auto) Baso % (Auto) Neut # (Auto) Lymph # (Auto) Will # (Auto) Eos # (Auto) Baso # (Auto) Neutrophils % (Manual) Lymphocytes % (Manual) Monocytes % (Manual) Platelet Estimate Hypochromasia (manual) Sodium 140 Potassium 5.2 Chloride 104 Carbon Dioxide 22 Anion Gap 19 BUN 25 H Creatinine 0.8 Est GFR ( Amer) > 60 Est GFR (Non-Af Amer) > 60 POC Glucose (mg/dL) 298 H Random Glucose 412 H* D Calcium 9.2 Phosphorus 3.9 Magnesium 2.1 Total Bilirubin 0.5 AST 24 ALT 19 Alkaline Phosphatase 111 Total Protein 7.9 Albumin 3.9 Globulin 4.0 H Albumin/Globulin Ratio 1.0 Mycoplasma pneumon IgM Fingerstick Blood Sugar Results: 298 Review of Systems - Review of Systems Systems not reviewed;Unavailable: Other (Sedated on Propofol) Critical Care Progress Note - Nutrition Nutrition: Nutrition Category Date Time Status NPO Diet [DIET] Diets 11/15/17 Breakfast Active Assessment/Plan - Assessment and Plan (Free Text) Assessment: 62 year old female with history of COPD, HTN, CHF, sp tracheostomy who presented for 3 day history of shortness of breath associated with fever, bodyaches, abdominal pain, nausea and hemoptysis today. Patient is trached and is on 3L of supplemental O2 at home. Rapid response was called after patient was noted to be in respiratory distress with tachycardia and O2 sat at 90%. Tracheostomy tube was suctioned multiple times with some secretions prior to ICU admission. Currently on PRVC, sedated on Propofol. Plan: Neuro: Hx of depression, on Seroquel and Zoloft at home, held currently Sedated on Propofol Plan to take patient of Propofol and do CPAP trial to see if patient is able to tolerate weaning Cardiovascular Not on pressors Hemodynamically stable Dr. Dietz consulted, help appreciated Pulmonary Trach, currently on PRVC CPAP trial today, tolerating well so far. Trach tube adjusted with towel underneath with good results. Duonebs Q4 Solumedrol 60mg Q8 Azithromycin 500mg Day 2 Vancomyin 1g Q12 Day 2 Merrem 1g IV Day [address] Dr. Rosado consulted, help appreciated f/u legionella, mycoplasma negative GI Protonix Renal I&Os BUN/Cr 25/0.8 ID White count 15.[address] Ochoa consulted, help appreciated Azithromycin 500mg Day 2 Vancomyin 1g Q12 Day 2 Merrem 1g IV Day 2 sputum culture pending blood culture prelim no growth Heme H/H 10.8/33.9 Endo Medium dose ISS in place Has been NPO, elevated blood sugar likely related to steroids PPX Lovenox, Protonix Case discussed with Dr. Cooper <Tayo Cooper - Last Filed: 11/15/17 20:35> CCU Objective - Vital Signs / Intake & Output Vital Signs (Last 4 hours): Vital Signs Pulse Resp BP Pulse Ox 11/15/17 19:06 80 17 148/84 97 11/15/17 19:00 83 16 96 11/15/17 18:07 91 H 12 103/63 94 L 11/15/17 18:00 85 24 93 L 11/15/17 17:06 88 25 H 112/62 92 L 11/15/17 17:00 89 27 H 91 L Intake and Output (Last 8hrs): Intake & Output 11/15/17 11/15/17 11/15/17 06:59 14:59 22:59 Intake Total 1126.4 899.6 180.2 Balance 1126.4 899.6 180.2 Weight 278 lb 6.4 oz Intake: IV 380 270.3 49.7 Intake, IV Amount 746.4 629.3 130.5 Left Antecubital 0 Right Distal Port 446.4 229.3 30.5 Right Proximal Port 300 400 100 Oral 0 0 Other: # Voids Urine, Voided 1 # Bowel Movements 0 - Medications Active Medications: Active Medications Generic Name Dose Route Start Last Admin Trade Name Freq PRN Reason Stop Dose Admin Acetaminophen 650 mg 11/15/17 09:45 Tylenol 325mg Tab PO Q4 PRN Pain, Mild (1-3) Acetylcysteine 4 ml 11/15/17 20:00 Acetylcysteine 20% INH RQ6 SHAYLA Albuterol/Ipratropium 3 ml 11/14/17 04:00 11/15/17 19:23 Duoneb 3 Mg/0.5 Mg (3 Ml) Ud INH 3 ml RQ4 SHAYLA Administration Enoxaparin Sodium 40 mg 11/14/17 10:00 11/15/17 08:59 Lovenox SC 40 mg DAILY SHAYLA Administration Gabapentin 800 mg 11/14/17 10:00 11/14/17 18:00 Neurontin PO Not Given TID SHAYLA Guaifenesin 200 mg 11/14/17 00:06 11/14/17 04:30 Robitussin PO 200 mg Q4H PRN Administration Cough and congestion Vancomycin/Sodium Chloride 1 gm in 200 mls @ 133 mls/hr 11/14/17 12:00 11:25 Vancomycin 1 Gm/Ns 200 Ml IVPB 11/19/17 12:01 133 mls/hr Q12H SHAYLA Administration Protocol Azithromycin 500 mg/ Sodium 250 mls @ 167 mls/hr 11/14/17 14:30 11/15/17 13: 33 Chloride IVPB 167 mls/hr Q24H SHAYLA Administration Protocol Meropenem 1 gm/ Sodium 100 mls @ 100 mls/hr 11/14/17 17:00 11/15/17 17:34 Chloride IVPB 100 mls/hr Q8H SHAYLA Administration Protocol Dexmedetomidine HCl 200 mcg/ 50 mls @ 6.31 mls/hr 11/15/17 13:15 11/15/17 17: 12 Sodium Chloride IV 0.2 mcg/kg/hr TITR PRN 6.31 mls/hr Agitation Administration Protocol 0.2 MCG/KG/HR Insulin Human Regular 0 unit 11/14/17 18:00 11/15/17 18:58 Novolin R SC 4 u Q6 SHAYLA Administration Protocol Methylprednisolone 60 mg 11/14/17 14:00 11/15/17 13:43 Solu-Medrol IVP 60 mg Q8 SHAYLA Administration Montelukast Sodium 10 mg 11/14/17 22:00 Singulair PO HS SHAYLA Pantoprazole Sodium 40 mg 11/14/17 10:00 11/14/17 10:00 Protonix Ec Tab PO Not Given DAILY SHAYLA Quetiapine Fumarate 400 mg 11/14/17 10:00 11/14/17 10:00 Seroquel Xr PO Not Given Q12 SHAYLA Sertraline HCl 100 mg 11/14/17 10:00 11/14/17 18:00 Zoloft PO Not Given BID [facility] Trazodone HCl 150 mg 11/14/17 22:00 Desyrel PO [facility] - Patient Studies Lab Studies: Microbiology Studies 11/14/17 19:01 Gram Stain - Final Sputum Induced Sputum Culture - Preliminary Gram Negative Parrish 11/13/17 22:01 Blood Culture - Preliminary Blood-Venous NO GROWTH AFTER 24 HOURS 11/13/17 22:31 Blood Culture - Preliminary Blood-Venous NO GROWTH AFTER 24 HOURS Lab Studies 11/15/17 11/15/17 11/15/17 Range/Units 11:19 06:17 06:17 WBC 15.3 H (4.8-10.8) K/uL RBC 4.30 (3.80-5.20) Mil/uL Hgb 10.8 L (11.0-16.0) g/dL Hct 33.9 L (34.0-47.0) % MCV 78.8 L D (81.0-99.0) fL MCH 25.0 L (27.0-31.0) pg MCHC 31.8 L (33.0-37.0) g/dL RDW 14.8 H (11.5-14.5) % Plt Count 174 (130-400) K/uL MPV 9.0 (7.2-11.7) fL Neut % (Auto) 92.9 H (50.0-75.0) % Lymph % (Auto) 3.9 L (20.0-40.0) % Will % (Auto) 3.1 (0.0-10.0) % Eos % (Auto) 0.0 (0.0-4.0) % Baso % (Auto) 0.1 (0.0-2.0) % Neut # (Auto) 14.2 H (1.8-7.0) K/uL Lymph # (Auto) 0.6 L (1.0-4.3) K/uL Will # (Auto) 0.5 (0.0-0.8) K/uL Eos # (Auto) 0.0 (0.0-0.7) K/uL Baso # (Auto) 0.0 (0.0-0.2) K/uL Neutrophils % (Manual) 93 H (50-75) % Lymphocytes % (Manual) 4 L (20-40) % Monocytes % (Manual) 3 (0-10) % Platelet Estimate Normal (NORMAL) Hypochromasia (manual) Slight Sodium 140 (132-148) mmol/L Potassium 5.2 (3.6-5.2) mmol/L Chloride 104 (98-107) mmol/L Carbon Dioxide 22 (22-30) mmol/L Anion Gap 19 (10-20) BUN 25 H (7-17) mg/dL Creatinine 0.8 (0.7-1.2) mg/dL Est GFR ( Amer) > 60 Est GFR (Non-Af Amer) > 60 POC Glucose (mg/dL) 298 H (65-110) mg/dL Random Glucose 412 H* D (65-105) mg/dL Calcium 9.2 (8.6-10.4) mg/dl Phosphorus 3.9 (2.5-4.5) mg/dL Magnesium 2.1 (1.6-2.3) mg/dL Total Bilirubin 0.5 (0.2-1.3) mg/dL AST 24 (14-36) U/L ALT 19 (9-52) U/L Alkaline Phosphatase 111 (38-126) U/L Total Protein 7.9 (6.3-8.3) g/dL Albumin 3.9 (3.5-5.0) g/dL Globulin 4.0 H (2.2-3.9) gm/dL Albumin/Globulin Ratio 1.0 (1.0-2.1) Mycoplasma pneumon IgM (NEGATIVE) 11/15/17 11/14/17 11/14/17 Range/Units 05:55 23:42 18:58 WBC (4.8-10.8) K/uL RBC (3.80-5.20) Mil/uL Hgb (11.0-16.0) g/dL Hct (34.0-47.0) % MCV (81.0-99.0) fL MCH (27.0-31.0) pg MCHC (33.0-37.0) g/dL RDW (11.5-14.5) % Plt Count (130-400) K/uL MPV (7.2-11.7) fL Neut % (Auto) (50.0-75.0) % Lymph % (Auto) (20.0-40.0) % Will % (Auto) (0.0-10.0) % Eos % (Auto) (0.0-4.0) % Baso % (Auto) (0.0-2.0) % Neut # (Auto) (1.8-7.0) K/uL Lymph # (Auto) (1.0-4.3) K/uL Will # (Auto) (0.0-0.8) K/uL Eos # (Auto) (0.0-0.7) K/uL Baso # (Auto) (0.0-0.2) K/uL Neutrophils % (Manual) (50-75) % Lymphocytes % (Manual) (20-40) % Monocytes % (Manual) (0-10) % Platelet Estimate (NORMAL) Hypochromasia (manual) Sodium (132-148) mmol/L Potassium (3.6-5.2) mmol/L Chloride (98-107) mmol/L Carbon Dioxide (22-30) mmol/L Anion Gap (10-20) BUN (7-17) mg/dL Creatinine (0.7-1.2) mg/dL Est GFR ( Amer) Est GFR (Non-Af Amer) POC Glucose (mg/dL) 438 H* 394 H (65-110) mg/dL Random Glucose (65-105) mg/dL Calcium (8.6-10.4) mg/dl Phosphorus (2.5-4.5) mg/dL Magnesium (1.6-2.3) mg/dL Total Bilirubin (0.2-1.3) mg/dL AST (14-36) U/L ALT (9-52) U/L Alkaline Phosphatase (38-126) U/L Total Protein (6.3-8.3) g/dL Albumin (3.5-5.0) g/dL Globulin (2.2-3.9) gm/dL Albumin/Globulin Ratio (1.0-2.1) Mycoplasma pneumon IgM Negative (NEGATIVE) Laboratory Results - last 24 hr 11/14/17 11/14/17 11/15/17 18:58 23:42 05:55 WBC RBC Hgb Hct MCV MCH MCHC RDW Plt Count MPV Neut % (Auto) Lymph % (Auto) Will % (Auto) Eos % (Auto) Baso % (Auto) Neut # (Auto) Lymph # (Auto) Will # (Auto) Eos # (Auto) Baso # (Auto) Neutrophils % (Manual) Lymphocytes % (Manual) Monocytes % (Manual) Platelet Estimate Hypochromasia (manual) Sodium Potassium Chloride Carbon Dioxide Anion Gap BUN Creatinine Est GFR ( Amer) Est GFR (Non-Af Amer) POC Glucose (mg/dL) 394 H 438 H* Random Glucose Calcium Phosphorus Magnesium Total Bilirubin AST ALT Alkaline Phosphatase Total Protein Albumin Globulin Albumin/Globulin Ratio Mycoplasma pneumon IgM Negative 11/15/17 11/15/17 11/15/17 06:17 06:17 11:19 WBC 15.3 H RBC 4.30 Hgb 10.8 L Hct 33.9 L MCV 78.8 L D MCH 25.0 L MCHC 31.8 L RDW 14.8 H Plt Count 174 MPV 9.0 Neut % (Auto) 92.9 H Lymph % (Auto) 3.9 L Will % (Auto) 3.1 Eos % (Auto) 0.0 Baso % (Auto) 0.1 Neut # (Auto) 14.2 H Lymph # (Auto) 0.6 L Will # (Auto) 0.5 Eos # (Auto) 0.0 Baso # (Auto) 0.0 Neutrophils % (Manual) 93 H Lymphocytes % (Manual) 4 L Monocytes % (Manual) 3 Platelet Estimate Normal Hypochromasia (manual) Slight Sodium 140 Potassium 5.2 Chloride 104 Carbon Dioxide 22 Anion Gap 19 BUN 25 H Creatinine 0.8 Est GFR ( Amer) > 60 Est GFR (Non-Af Amer) > 60 POC Glucose (mg/dL) 298 H Random Glucose 412 H* D Calcium 9.2 Phosphorus 3.9 Magnesium 2.1 Total Bilirubin 0.5 AST 24 ALT 19 Alkaline Phosphatase 111 Total Protein 7.9 Albumin 3.9 Globulin 4.0 H Albumin/Globulin Ratio 1.0 Mycoplasma pneumon IgM Critical Care Progress Note - Nutrition Nutrition: Nutrition Category Date Time Status NPO Diet [DIET] Diets 11/15/17 Breakfast Active Attending/Attestation - Attestation I have personally seen and examined this patient.: Yes I have fully participated in the care of the patient.: Yes I have reviewed all pertinent clinical information: Yes Notes (Text): 11/15/17 20:34 The patient was Seen/interviewed and examined by me at the bedside during ICU round, Medical records reviewed and Management issues were discussed and formulated with the house staff. Events reviewed I have reviewed all the relevant clinical, laboratory, hemodynamic, radiographic data and medications Pain issues, skin care, head of the bed elevation, glycemic control were addressed. I concur with resident's assessment and plan of care as transcribed in Dr. Murrieta note.
--- NOTE | 2017-11-15 16:18 | CP.PCM.PN ---
Subjective - Date & Time of Evaluation Date of Evaluation: 11/15/17 Time of Evaluation: 10:00 - Subjective Subjective: Cardiology progress note ( Dr. Sherman covering Dr. Dietz's service) Patient was seen and examined at bedside. Unable to evaluate ROS as patient is still on sedation. As per nursing staff, no acute issues overnight. Objective - Vital Signs/Intake and Output Vital Signs (last 24 hours): Temp Pulse Resp BP Pulse Ox 98.8 F 70 21 130/76 93 L 11/15/17 12:00 11/15/17 15:06 11/15/17 15:06 11/15/17 15:06 11/15/17 15:06 Intake and Output: 11/15/17 11/15/17 06:59 18:59 Intake Total 1525.2 893.5 Output Total 0 Balance 1525.2 893.5 - Medications Medications: Current Medications Acetaminophen (Tylenol 325mg Tab) 650 mg PO Q4 PRN PRN Reason: Pain, Mild (1-3) Acetylcysteine (Acetylcysteine 20%) 4 ml INH Q6H [facility] Last Admin: 11/15/17 03:16 Dose: 4 ml Albuterol/Ipratropium (Duoneb 3 Mg/0.5 Mg (3 Ml) Ud) 3 ml INH RQ4 [facility] Last Admin: 11/15/17 08:29 Dose: 3 ml Enoxaparin Sodium (Lovenox) 40 mg SC DAILY [facility] Last Admin: 11/15/17 08:59 Dose: 40 mg Gabapentin (Neurontin) 800 mg PO TID [facility] Last Admin: 11/14/17 18:00 Dose: Not Given Guaifenesin (Robitussin) 200 mg PO Q4H PRN PRN Reason: Cough and congestion Last Admin: 11/14/17 04:30 Dose: 200 mg Vancomycin/Sodium Chloride (Vancomycin 1 Gm/Ns 200 Ml) 1 gm in 200 mls @ 133 mls/hr IVPB Q12H [facility] PRN Reason: Protocol Stop: 11/19/17 12:01 Last Admin: 11/15/17 11:25 Dose: 133 mls/hr Azithromycin 500 mg/ Sodium (Chloride) 250 mls @ 167 mls/hr IVPB Q24H [facility] PRN Reason: Protocol Last Admin: 11/15/17 13:33 Dose: 167 mls/hr Meropenem 1 gm/ Sodium (Chloride) 100 mls @ 100 mls/hr IVPB Q8H [facility] PRN Reason: Protocol Last Admin: 11/15/17 09:01 Dose: 100 mls/hr Dexmedetomidine HCl 200 mcg/ (Sodium Chloride) 50 mls @ 6.31 mls/hr IV TITR PRN ; Protocol; 0.2 MCG/KG/HR PRN Reason: Agitation Last Titration: 11/15/17 14:00 Dose: 0.2 mcg/kg/hr, 6.31 mls/hr Insulin Human Regular (Novolin R) 0 unit SC Q6 [facility] PRN Reason: Protocol Last Admin: 11/15/17 11:24 Dose: 4 u Methylprednisolone (Solu-Medrol) 60 mg IVP Q8 [facility] Last Admin: 11/15/17 13:43 Dose: 60 mg Montelukast Sodium (Singulair) 10 mg PO HS [facility] Pantoprazole Sodium (Protonix Ec Tab) 40 mg PO DAILY [facility] Last Admin: 11/14/17 10:00 Dose: Not Given Quetiapine Fumarate (Seroquel Xr) 400 mg PO Q12 [facility] Last Admin: 11/14/17 10:00 Dose: Not Given Sertraline HCl (Zoloft) 100 mg PO BID [facility] Last Admin: 11/14/17 18:00 Dose: Not Given Trazodone HCl (Desyrel) 150 mg PO HS [facility] - Labs Labs: 11/15/17 06:17 11/15/17 06:17 - Constitutional Appears: Non-toxic, Other (On sedation) - Respiratory Exam Respiratory Exam: NORMAL BREATHING PATTERN Additional comments: Tracheostomy on ventilation - Cardiovascular Exam Cardiovascular Exam: REGULAR RHYTHM - Extremities Exam Extremities Exam: absent: Calf Tenderness, Normal Inspection, Pedal Edema Assessment and Plan (1) Respiratory distress Assessment & Plan: Patient is a 62 year old female with history of COPD, HTN, CHF, sp tracheostomy who presented for 3 day history of shortness of breath associated with fever, bodyaches, abdominal pain, nausea and hemoptysis today. Cardiology consult for chest discomfort: Imaging/ Labs: Chest X-ray: Tracheostomy tube. Right-sided PICC. Cardiomegaly. Evidence of multifocal pneumonia Chest CT: Multifocal infiltrates. No evidence of mucous plugging. Mild mediastinal lymphadenopathy. Mild cardiomegaly. Multiple old vertebral compression fractures. Mild hepatosplenomegaly. Tracheostomy noted. Echocardiogram (04/28/17): Mild concentric left ventricular hypertrophy. LV function is normal. LV EF is within normal range. Normal LV segmental wall motion. Aortic valve is moderately calcified and possibly bicuspied, Moderate valvular aortic stenosis Troponin negative X1 BNP: 113 Medications: - Acetylcysteine 4ml INH Q6H - Duonebs 3ML INH RQ4H - Azithromycin 500mg IV Q24H - Meropenem 1gm IV Q8H - Vanco 1gm IV Q12H - Singulair 10mg PO HS - Robitussin 200mg PO Q4H PRN - Solumedrol 60mg IV Q8H Continue all current management for respiratory distress as per pulmonology and ICU team No cardiac intervention at this time Status: Acute
--- NOTE | 2017-11-15 17:42 | CP.PCM.PN ---
Subjective - Date & Time of Evaluation Date of Evaluation: 11/15/17 Time of Evaluation: 11:15 - Subjective Subjective: Patient seen and examined On ventilatory support, status post trach Sedated on Diprivan Still has some cough Afebrile Being treated for pneumonia Objective - Vital Signs/Intake and Output Vital Signs (last 24 hours): Temp Pulse Resp BP Pulse Ox 98.8 F 74 25 H 129/75 94 L 11/15/17 12:00 11/15/17 16:06 11/15/17 16:06 11/15/17 16:06 11/15/17 16:06 Intake and Output: 11/15/17 11/15/17 06:59 18:59 Intake Total 1525.2 943.2 Output Total 0 Balance 1525.2 943.2 - Medications Medications: Current Medications Acetaminophen (Tylenol 325mg Tab) 650 mg PO Q4 PRN PRN Reason: Pain, Mild (1-3) Acetylcysteine (Acetylcysteine 20%) 4 ml INH Q6H [facility] Last Admin: 11/15/17 16:12 Dose: 4 ml Albuterol/Ipratropium (Duoneb 3 Mg/0.5 Mg (3 Ml) Ud) 3 ml INH RQ4 [facility] Last Admin: 11/15/17 16:12 Dose: 3 ml Enoxaparin Sodium (Lovenox) 40 mg SC DAILY [facility] Last Admin: 11/15/17 08:59 Dose: 40 mg Gabapentin (Neurontin) 800 mg PO TID [facility] Last Admin: 11/14/17 18:00 Dose: Not Given Guaifenesin (Robitussin) 200 mg PO Q4H PRN PRN Reason: Cough and congestion Last Admin: 11/14/17 04:30 Dose: 200 mg Vancomycin/Sodium Chloride (Vancomycin 1 Gm/Ns 200 Ml) 1 gm in 200 mls @ 133 mls/hr IVPB Q12H [facility] PRN Reason: Protocol Stop: 11/19/17 12:01 Last Admin: 11/15/17 11:25 Dose: 133 mls/hr Azithromycin 500 mg/ Sodium (Chloride) 250 mls @ 167 mls/hr IVPB Q24H [facility] PRN Reason: Protocol Last Admin: 11/15/17 13:33 Dose: 167 mls/hr Meropenem 1 gm/ Sodium (Chloride) 100 mls @ 100 mls/hr IVPB Q8H [facility] PRN Reason: Protocol Last Admin: 11/15/17 17:34 Dose: 100 mls/hr Dexmedetomidine HCl 200 mcg/ (Sodium Chloride) 50 mls @ 6.31 mls/hr IV TITR PRN ; Protocol; 0.2 MCG/KG/HR PRN Reason: Agitation Last Admin: 11/15/17 17:12 Dose: 0.2 mcg/kg/hr, 6.31 mls/hr Insulin Human Regular (Novolin R) 0 unit SC Q6 [facility] PRN Reason: Protocol Last Admin: 11/15/17 11:24 Dose: 4 u Methylprednisolone (Solu-Medrol) 60 mg IVP Q8 [facility] Last Admin: 11/15/17 13:43 Dose: 60 mg Montelukast Sodium (Singulair) 10 mg PO HS [facility] Pantoprazole Sodium (Protonix Ec Tab) 40 mg PO DAILY [facility] Last Admin: 11/14/17 10:00 Dose: Not Given Quetiapine Fumarate (Seroquel Xr) 400 mg PO Q12 [facility] Last Admin: 11/14/17 10:00 Dose: Not Given Sertraline HCl (Zoloft) 100 mg PO BID [facility] Last Admin: 11/14/17 18:00 Dose: Not Given Trazodone HCl (Desyrel) 150 mg PO HS [facility] - Labs Labs: 11/15/17 06:17 11/15/17 06:17 - Head Exam Head Exam: ATRAUMATIC, NORMOCEPHALIC - ENT Exam ENT Exam: Mucous Membranes Moist - Respiratory Exam Respiratory Exam: Rales, Rhonchi - Cardiovascular Exam Cardiovascular Exam: REGULAR RHYTHM - GI/Abdominal Exam GI & Abdominal Exam: Soft, Normal Bowel Sounds - Neurological Exam Neurological Exam: Altered Assessment and Plan (1) Respiratory failure Assessment & Plan: spontaneous awakening trial Consider Precedex Continue antibiotics Followup ABG and chest x-ray Status: Acute (2) Pneumonia Status: Acute (3) COPD exacerbation Status: Acute (4) Tracheostomy dependence Status: Acute
--- NOTE | 2017-11-15 18:38 | CP.PCM.PN ---
Subjective - Date & Time of Evaluation Date of Evaluation: 11/15/17 Time of Evaluation: 09:00 - Subjective Subjective: afebrile awake nad on trach collar Objective - Vital Signs/Intake and Output Vital Signs (last 24 hours): Temp Pulse Resp BP Pulse Ox 98.8 F 74 25 H 129/75 94 L 11/15/17 12:00 11/15/17 16:06 11/15/17 16:06 11/15/17 16:06 11/15/17 16:06 Intake and Output: 11/15/17 11/15/17 06:59 18:59 Intake Total 1525.2 943.2 Output Total 0 Balance 1525.2 943.2 - Medications Medications: Current Medications Acetaminophen (Tylenol 325mg Tab) 650 mg PO Q4 PRN PRN Reason: Pain, Mild (1-3) Acetylcysteine (Acetylcysteine 20%) 4 ml INH RQ6 [facility] Albuterol/Ipratropium (Duoneb 3 Mg/0.5 Mg (3 Ml) Ud) 3 ml INH RQ4 [facility] Last Admin: 11/15/17 16:12 Dose: 3 ml Enoxaparin Sodium (Lovenox) 40 mg SC DAILY [facility] Last Admin: 11/15/17 08:59 Dose: 40 mg Gabapentin (Neurontin) 800 mg PO TID [facility] Last Admin: 11/14/17 18:00 Dose: Not Given Guaifenesin (Robitussin) 200 mg PO Q4H PRN PRN Reason: Cough and congestion Last Admin: 11/14/17 04:30 Dose: 200 mg Vancomycin/Sodium Chloride (Vancomycin 1 Gm/Ns 200 Ml) 1 gm in 200 mls @ 133 mls/hr IVPB Q12H [facility] PRN Reason: Protocol Stop: 11/19/17 12:01 Last Admin: 11/15/17 11:25 Dose: 133 mls/hr Azithromycin 500 mg/ Sodium (Chloride) 250 mls @ 167 mls/hr IVPB Q24H [facility] PRN Reason: Protocol Last Admin: 11/15/17 13:33 Dose: 167 mls/hr Meropenem 1 gm/ Sodium (Chloride) 100 mls @ 100 mls/hr IVPB Q8H [facility] PRN Reason: Protocol Last Admin: 11/15/17 17:34 Dose: 100 mls/hr Dexmedetomidine HCl 200 mcg/ (Sodium Chloride) 50 mls @ 6.31 mls/hr IV TITR PRN ; Protocol; 0.2 MCG/KG/HR PRN Reason: Agitation Last Admin: 11/15/17 17:12 Dose: 0.2 mcg/kg/hr, 6.31 mls/hr Insulin Human Regular (Novolin R) 0 unit SC Q6 [facility] PRN Reason: Protocol Last Admin: 11/15/17 11:24 Dose: 4 u Methylprednisolone (Solu-Medrol) 60 mg IVP Q8 [facility] Last Admin: 11/15/17 13:43 Dose: 60 mg Montelukast Sodium (Singulair) 10 mg PO HS [facility] Pantoprazole Sodium (Protonix Ec Tab) 40 mg PO DAILY [facility] Last Admin: 11/14/17 10:00 Dose: Not Given Quetiapine Fumarate (Seroquel Xr) 400 mg PO Q12 [facility] Last Admin: 11/14/17 10:00 Dose: Not Given Sertraline HCl (Zoloft) 100 mg PO BID [facility] Last Admin: 11/14/17 18:00 Dose: Not Given Trazodone HCl (Desyrel) 150 mg PO HS [facility] - Labs Labs: 11/15/17 06:17 11/15/17 06:17 - Constitutional Appears: Non-toxic, Chronically Ill - Head Exam Head Exam: NORMOCEPHALIC - Eye Exam Eye Exam: PERRL - ENT Exam ENT Exam: Mucous Membranes Dry - Neck Exam Neck Exam: absent: Lymphadenopathy - Respiratory Exam Respiratory Exam: Decreased Breath Sounds - Cardiovascular Exam Cardiovascular Exam: REGULAR RHYTHM - GI/Abdominal Exam GI & Abdominal Exam: Distended, Soft Assessment and Plan (1) COPD exacerbation Status: Acute (2) Chr obstructive pulmonary disease w/ acute lower respiratory infxn Status: Acute (3) Hypoxia Status: Acute (4) Pneumonia Status: Acute - Assessment and Plan (Free Text) Assessment: await cultures cont iv rx
--- NOTE | 2017-11-15 22:14 | CP.PCM.PN ---
Objective - Vital Signs/Intake and Output Vital Signs (last 24 hours): Temp Pulse Resp BP Pulse Ox 98.5 F 80 17 148/84 97 11/15/17 16:00 11/15/17 19:06 11/15/17 19:06 11/15/17 19:06 11/15/17 19:06 Intake and Output: 11/15/17 11/16/17 18:59 06:59 Intake Total 1073.7 18.3 Output Total 300 Balance 1073.7 -281.7 - Medications Medications: Current Medications Acetaminophen (Tylenol 325mg Tab) 650 mg PO Q4 PRN PRN Reason: Pain, Mild (1-3) Acetylcysteine (Acetylcysteine 20%) 4 ml INH RQ6 [facility] Albuterol/Ipratropium (Duoneb 3 Mg/0.5 Mg (3 Ml) Ud) 3 ml INH RQ4 [facility] Last Admin: 11/15/17 19:23 Dose: 3 ml Enoxaparin Sodium (Lovenox) 40 mg SC DAILY [facility] Last Admin: 11/15/17 08:59 Dose: 40 mg Gabapentin (Neurontin) 800 mg PO TID [facility] Last Admin: 11/14/17 18:00 Dose: Not Given Guaifenesin (Robitussin) 200 mg PO Q4H PRN PRN Reason: Cough and congestion Last Admin: 11/14/17 04:30 Dose: 200 mg Vancomycin/Sodium Chloride (Vancomycin 1 Gm/Ns 200 Ml) 1 gm in 200 mls @ 133 mls/hr IVPB Q12H [facility] PRN Reason: Protocol Stop: 11/19/17 12:01 Last Admin: 11/15/17 11:25 Dose: 133 mls/hr Azithromycin 500 mg/ Sodium (Chloride) 250 mls @ 167 mls/hr IVPB Q24H [facility] PRN Reason: Protocol Last Admin: 11/15/17 13:33 Dose: 167 mls/hr Meropenem 1 gm/ Sodium (Chloride) 100 mls @ 100 mls/hr IVPB Q8H [facility] PRN Reason: Protocol Last Admin: 11/15/17 17:34 Dose: 100 mls/hr Dexmedetomidine HCl 200 mcg/ (Sodium Chloride) 50 mls @ 6.31 mls/hr IV TITR PRN ; Protocol; 0.2 MCG/KG/HR PRN Reason: Agitation Last Admin: 11/15/17 17:12 Dose: 0.2 mcg/kg/hr, 6.31 mls/hr Insulin Human Regular (Novolin R) 0 unit SC Q6 [facility] PRN Reason: Protocol Last Admin: 11/15/17 18:58 Dose: 4 u Methylprednisolone (Solu-Medrol) 60 mg IVP Q8 [facility] Last Admin: 11/15/17 22:10 Dose: 60 mg Montelukast Sodium (Singulair) 10 mg PO HS [facility] Pantoprazole Sodium (Protonix Ec Tab) 40 mg PO DAILY [facility] Last Admin: 11/14/17 10:00 Dose: Not Given Quetiapine Fumarate (Seroquel Xr) 400 mg PO Q12 [facility] Last Admin: 11/14/17 10:00 Dose: Not Given Sertraline HCl (Zoloft) 100 mg PO BID [facility] Last Admin: 11/14/17 18:00 Dose: Not Given Trazodone HCl (Desyrel) 150 mg PO HS [facility] - Labs Labs: 11/15/17 06:17 11/15/17 06:17
[2017-11-16] MEDS: Vancomycin 1 gm/NS 200 ml 1 GM/200 ML BAG IVPB SCH ×3 (00:05→23:20)
[2017-11-16] MEDS: Albuterol-Ipratrop 3 mg / 0.5 (3 ml) UD INH SCH ×6 (00:41→19:44)
[2017-11-16] MEDS: Meropenem 1 GM in Sodium Chloride 0.9% 100 ML IVPB SCH ×3 (01:04→17:04)
[2017-11-16] MEDS: (Novolin R) Insulin Human Regular 100 units/ml vial SC SCH ×4 (01:08→17:41)
[2017-11-16] MEDS: Dexmedetomidine Hydrochloride 200 MCG in Sodium Chloride 0.9% 48 ML IV PRN (01:27)
--- NOTE | 2017-11-16 03:42 | PN ---
DATE: 11/15/2017 SUBJECTIVE: The patient is coughing. She is congested. She is on ventilator via trach collar. She is in distress. . No nausea or vomiting. No fever. On antibiotics. Thick secretion. PHYSICAL EXAMINATION: VITAL SIGNS: BP 148/84, pulse 80, respiratory rate 70, temperature 98. LUNGS: Bilateral scattered rhonchi. CARDIOVASCULAR SYSTEM: S1 and S2, regular. ABDOMEN: Soft. ASSESSMENT: 1. Acute tracheobronchitis, rule out pneumonia. 2. Dehydration. 3. Diabetes. 4. Hypertension. PLAN: Admit. Antibiotics. Mechanical ventilator. Pulmonary evaluation. Ad Khan MD
[2017-11-16] MEDS: Acetylcysteine 20% Inhal Soln (4ml) INH SCH ×2 (03:58→07:54)
[2017-11-16 06:37] LABS: BASO % 0.2 % (0.0-2.0); HEMOGLOBIN 10.5 g/dL (11.0-16.0); LYMPH # 0.4 K/uL (1.0-4.3); LYMPH % 4.2 % (20.0-40.0); MEAN CELL VOLUME 77.3 fL (81.0-99.0); MEAN CORPUSCULAR HEMOGLOBIN 25.4 pg (27.0-31.0); MEAN CORPUSCULAR HGB CONC 32.8 g/dL (33.0-37.0); MEAN PLATELET VOLUME 8.4 fL (7.2-11.7); MONO # 0.5 K/uL (0.0-0.8); MONO % 4.9 % (0.0-10.0); NEUT # 9.5 K/uL (1.8-7.0); NEUT % 90.7 % (50.0-75.0); PLATELET COUNT 175 K/uL (130-400); RBC 4.12 Mil/uL (3.80-5.20); WHITE BLOOD COUNT 10.5 K/uL (4.8-10.8)
[2017-11-16 06:48] LABS: ALBUMIN 3.7 g/dL (3.5-5.0); ALT/SGPT 16 U/L (9-52); AST/SGOT 16 U/L (14-36); BLOOD UREA NITROGEN 25 mg/dL (7-17); GFR NON-AFRICAN AMERICAN > 60
[2017-11-16 08:26] LABS: ANISOCYTOSIS SLIGHT; HYPOCHROMIC SLIGHT; LYMPHOCYTE 5 % (20-40); MONOCYTE 3 % (0-10); NEUTROPHIL 92 % (50-75); PLATELET ESTIMATE NORMAL (NORMAL); TOTAL CELLS COUNTED 100
[2017-11-16] MEDS: Enoxaparin 40 mg Syringe SC SCH (09:27)
--- NOTE | 2017-11-16 09:54 | CP.CCUPN ---
<Giuliana Murrieta - Last Filed: 11/16/17 12:58> CCU Subjective - Physician Review Subjective (Free Text): 11/15/17 15:23 ICU Progress note Patient seen and examined this morning. Patient is more awake this morning. She was able to tolerate CPAP yesterday. Currently on trach collar. 11/16/17 11:43 11/16/17 11:43 CCU Objective - Vital Signs / Intake & Output Vital Signs (Last 4 hours): Vital Signs Temp Pulse Resp BP Pulse Ox 11/16/17 08:07 100 H 24 160/88 H 91 L 11/16/17 08:00 98.4 F 66 24 138/76 96 11/16/17 07:06 80 25 H 138/76 93 L 11/16/17 07:00 91 H 21 91 L 11/16/17 06:06 137/72 Intake and Output (Last 8hrs): Intake & Output 11/15/17 11/16/17 11/16/17 22:59 06:59 14:59 Intake Total 198.5 898.8 157.2 Output Total 300 800 Balance -101.5 98.8 157.2 Weight 276 lb 3.2 oz Intake: IV 49.7 50 45 Intake, IV Amount 148.8 848.8 112.2 Right Distal Port 48.8 48.8 12.2 Right Proximal Port 100 800 100 Oral 0 Output: Urine 300 800 Urine, Voided 300 800 Other: # Voids Urine, Voided 1 1 - Physical Exam Head: Positive for: Atraumatic, Normocephalic Pupils: Positive for: PERRL Mouth: Positive for: Moist Mucous Membranes Neck: Positive for: Other (Trach collar in place ) Respiratory/Chest: Positive for: Decreased Breath Sounds (possibly due to body habitus) Cardiovascular: Positive for: Regular Rate and Rhythm, Normal S1, S2 Abdomen: Positive for: Other (Obese abdomen). Negative for: Tenderness, Peritoneal Signs Upper Extremity: Positive for: NORMAL PULSES. Negative for: Edema Lower Extremity: Negative for: CALF TENDERNESS Skin: Positive for: Warm, Dry Psychiatric: Positive for: Other (Sedated on Propofol) - Medications Active Medications: Active Medications Generic Name Dose Route Start Last Admin Trade Name Freq PRN Reason Stop Dose Admin Acetaminophen 650 mg 11/15/17 09:45 Tylenol 325mg Tab PO Q4 PRN Pain, Mild (1-3) Albuterol/Ipratropium 3 ml 11/14/17 04:00 11/16/17 07:54 Duoneb 3 Mg/0.5 Mg (3 Ml) Ud INH 3 ml RQ4 SHAYLA Administration Enoxaparin Sodium 40 mg 11/14/17 10:00 11/16/17 09:27 Lovenox SC 40 mg DAILY SHAYLA Administration Gabapentin 800 mg 11/14/17 10:00 11/14/17 18:00 Neurontin PO Not Given TID SHAYLA Guaifenesin 200 mg 11/14/17 00:06 11/14/17 04:30 Robitussin PO 200 mg Q4H PRN Administration Cough and congestion Vancomycin/Sodium Chloride 1 gm in 200 mls @ 133 mls/hr 11/14/17 12:00 00:05 Vancomycin 1 Gm/Ns 200 Ml IVPB 11/19/17 12:01 133 mls/hr Q12H SHAYLA Administration Protocol Azithromycin 500 mg/ Sodium 250 mls @ 167 mls/hr 11/14/17 14:30 11/15/17 13: 33 Chloride IVPB 167 mls/hr Q24H SHAYLA Administration Protocol Meropenem 1 gm/ Sodium 100 mls @ 100 mls/hr 11/14/17 17:00 11/16/17 08:43 Chloride IVPB 100 mls/hr Q8H SHAYLA Administration Protocol Insulin Human Regular 0 unit 11/14/17 18:00 11/16/17 06:32 Novolin R SC 4 u Q6 SHAYLA Administration Protocol Methylprednisolone 60 mg 11/14/17 14:00 11/16/17 06:40 Solu-Medrol IVP 60 mg Q8 SHAYLA Administration Montelukast Sodium 10 mg 11/14/17 22:00 Singulair PO HS SHAYLA Pantoprazole Sodium 40 mg 11/14/17 10:00 11/14/17 10:00 Protonix Ec Tab PO Not Given DAILY SHAYLA Quetiapine Fumarate 400 mg 11/14/17 10:00 11/14/17 10:00 Seroquel Xr PO Not Given Q12 SHAYLA Saliva Substitute 5 ml 11/16/17 12:00 First Magic Mouthwash PO Q4 SHAYLA Sertraline HCl 100 mg 11/14/17 10:00 11/14/17 18:00 Zoloft PO Not Given BID SHAYLA Trazodone HCl 150 mg 11/14/17 22:00 Desyrel PO HS ON LICENSE OF [facility] - Patient Studies Lab Studies: Microbiology Studies 11/14/17 19:01 Gram Stain - Final Sputum Induced Sputum Culture - Final Proteus Mirabilis 11/13/17 22:01 Blood Culture - Preliminary Blood-Venous NO GROWTH AFTER 24 HOURS 11/13/17 22:31 Blood Culture - Preliminary Blood-Venous NO GROWTH AFTER 24 HOURS Lab Studies 11/16/17 11/16/17 11/16/17 Range/Units 06:23 06:23 06:23 WBC 10.5 (4.8-10.8) K/uL RBC 4.12 (3.80-5.20) Mil/uL Hgb 10.5 L (11.0-16.0) g/dL Hct 31.9 L (34.0-47.0) % MCV 77.3 L (81.0-99.0) fL MCH 25.4 L (27.0-31.0) pg MCHC 32.8 L (33.0-37.0) g/dL RDW 15.0 H (11.5-14.5) % Plt Count 175 (130-400) K/uL MPV 8.4 (7.2-11.7) fL Neut % (Auto) 90.7 H (50.0-75.0) % Lymph % (Auto) 4.2 L (20.0-40.0) % Alfalfa % (Auto) 4.9 (0.0-10.0) % Eos % (Auto) 0.0 (0.0-4.0) % Baso % (Auto) 0.2 (0.0-2.0) % Neut # (Auto) 9.5 H (1.8-7.0) K/uL Lymph # (Auto) 0.4 L (1.0-4.3) K/uL Alfalfa # (Auto) 0.5 (0.0-0.8) K/uL Eos # (Auto) 0.0 (0.0-0.7) K/uL Baso # (Auto) 0.0 (0.0-0.2) K/uL Neutrophils % (Manual) 92 H (50-75) % Lymphocytes % (Manual) 5 L (20-40) % Monocytes % (Manual) 3 (0-10) % Platelet Estimate Normal (NORMAL) Hypochromasia (manual) Slight Anisocytosis (manual) Slight Sodium 143 (132-148) mmol/L Potassium 4.3 (3.6-5.2) mmol/L Chloride 108 H (98-107) mmol/L Carbon Dioxide 24 (22-30) mmol/L Anion Gap 16 (10-20) BUN 25 H (7-17) mg/dL Creatinine 0.8 (0.7-1.2) mg/dL Est GFR ( Amer) > 60 Est GFR (Non-Af Amer) > 60 POC Glucose (mg/dL) 293 H (65-110) mg/dL Random Glucose 340 H (65-105) mg/dL Calcium 9.0 (8.6-10.4) mg/dl Phosphorus 3.1 (2.5-4.5) mg/dL Magnesium 2.2 (1.6-2.3) mg/dL Total Bilirubin 0.3 (0.2-1.3) mg/dL AST 16 (14-36) U/L ALT 16 (9-52) U/L Alkaline Phosphatase 111 (38-126) U/L Total Protein 7.6 (6.3-8.3) g/dL Albumin 3.7 (3.5-5.0) g/dL Globulin 3.9 (2.2-3.9) gm/dL Albumin/Globulin Ratio 1.0 (1.0-2.1) 11/15/17 11/15/17 11/15/17 Range/Units 23:33 17:34 11:19 WBC (4.8-10.8) K/uL RBC (3.80-5.20) Mil/uL Hgb (11.0-16.0) g/dL Hct (34.0-47.0) % MCV (81.0-99.0) fL MCH (27.0-31.0) pg MCHC (33.0-37.0) g/dL RDW (11.5-14.5) % Plt Count (130-400) K/uL MPV (7.2-11.7) fL Neut % (Auto) (50.0-75.0) % Lymph % (Auto) (20.0-40.0) % Alfalfa % (Auto) (0.0-10.0) % Eos % (Auto) (0.0-4.0) % Baso % (Auto) (0.0-2.0) % Neut # (Auto) (1.8-7.0) K/uL Lymph # (Auto) (1.0-4.3) K/uL Alfalfa # (Auto) (0.0-0.8) K/uL Eos # (Auto) (0.0-0.7) K/uL Baso # (Auto) (0.0-0.2) K/uL Neutrophils % (Manual) (50-75) % Lymphocytes % (Manual) (20-40) % Monocytes % (Manual) (0-10) % Platelet Estimate (NORMAL) Hypochromasia (manual) Anisocytosis (manual) Sodium (132-148) mmol/L Potassium (3.6-5.2) mmol/L Chloride (98-107) mmol/L Carbon Dioxide (22-30) mmol/L Anion Gap (10-20) BUN (7-17) mg/dL Creatinine (0.7-1.2) mg/dL Est GFR ( Amer) Est GFR (Non-Af Amer) POC Glucose (mg/dL) 253 H 251 H 298 H (65-110) mg/dL Random Glucose (65-105) mg/dL Calcium (8.6-10.4) mg/dl Phosphorus (2.5-4.5) mg/dL Magnesium (1.6-2.3) mg/dL Total Bilirubin (0.2-1.3) mg/dL AST (14-36) U/L ALT (9-52) U/L Alkaline Phosphatase (38-126) U/L Total Protein (6.3-8.3) g/dL Albumin (3.5-5.0) g/dL Globulin (2.2-3.9) gm/dL Albumin/Globulin Ratio (1.0-2.1) Laboratory Results - last 24 hr 11/15/17 11/15/17 11/15/17 11:19 17:34 23:33 WBC RBC Hgb Hct MCV MCH MCHC RDW Plt Count MPV Neut % (Auto) Lymph % (Auto) Alfalfa % (Auto) Eos % (Auto) Baso % (Auto) Neut # (Auto) Lymph # (Auto) Alfalfa # (Auto) Eos # (Auto) Baso # (Auto) Neutrophils % (Manual) Lymphocytes % (Manual) Monocytes % (Manual) Platelet Estimate Hypochromasia (manual) Anisocytosis (manual) Sodium Potassium Chloride Carbon Dioxide Anion Gap BUN Creatinine Est GFR ( Amer) Est GFR (Non-Af Amer) POC Glucose (mg/dL) 298 H 251 H 253 H Random Glucose Calcium Phosphorus Magnesium Total Bilirubin AST ALT Alkaline Phosphatase Total Protein Albumin Globulin Albumin/Globulin Ratio 11/16/17 11/16/17 11/16/17 06:23 06:23 06:23 WBC 10.5 RBC 4.12 Hgb 10.5 L Hct 31.9 L MCV 77.3 L MCH 25.4 L MCHC 32.8 L RDW 15.0 H Plt Count 175 MPV 8.4 Neut % (Auto) 90.7 H Lymph % (Auto) 4.2 L Alfalfa % (Auto) 4.9 Eos % (Auto) 0.0 Baso % (Auto) 0.2 Neut # (Auto) 9.5 H Lymph # (Auto) 0.4 L Alfalfa # (Auto) 0.5 Eos # (Auto) 0.0 Baso # (Auto) 0.0 Neutrophils % (Manual) 92 H Lymphocytes % (Manual) 5 L Monocytes % (Manual) 3 Platelet Estimate Normal Hypochromasia (manual) Slight Anisocytosis (manual) Slight Sodium 143 Potassium 4.3 Chloride 108 H Carbon Dioxide 24 Anion Gap 16 BUN 25 H Creatinine 0.8 Est GFR ( Amer) > 60 Est GFR (Non-Af Amer) > 60 POC Glucose (mg/dL) 293 H Random Glucose 340 H Calcium 9.0 Phosphorus 3.1 Magnesium 2.2 Total Bilirubin 0.3 AST 16 ALT 16 Alkaline Phosphatase 111 Total Protein 7.6 Albumin 3.7 Globulin 3.9 Albumin/Globulin Ratio 1.0 Fingerstick Blood Sugar Results: 293 Critical Care Progress Note - Nutrition Nutrition: Nutrition Category Date Time Status Dysphagia/Modified Consistency Diet [DIET] Diets 11/16/17 Breakfast Active Assessment/Plan - Assessment and Plan (Free Text) Assessment: 62 year old female with history of COPD, HTN, CHF, sp tracheostomy who presented for 3 day history of shortness of breath associated with fever, bodyaches, abdominal pain, nausea and hemoptysis today. Patient is trached and is on 3L of supplemental O2 at home. Rapid response was called after patient was noted to be in respiratory distress with tachycardia and O2 sat at 90%. Tracheostomy tube was suctioned multiple times with some secretions prior to ICU admission. She was on PRVC, currently doing well on trach collar. Plan: Neuro: Hx of depression, on Seroquel and Zoloft at home Tolerated CPAP trial well yesterday Currently on trach collar Cardiovascular Not on pressors Hemodynamically stable Dr. Dietz consulted, help appreciated Pulmonary Trach collar in place, tolerated CPAP well yesterday. Chloraseptic spray and magic mouth wash ordered for patient. Duonebs Q4 Solumedrol 60mg Q8 Azithromycin 500mg Day 3 Vancomyin 1g Q12 Day 3 Merrem 1g IV Day [address] Dr. Rosado consulted, help appreciated f/u legionella, mycoplasma negative GI Protonix Pureed diet Renal I&Os BUN/Cr 25/0.8 ID White count 10.[address] Ochoa consulted, help appreciated Azithromycin 500mg Day 2 Vancomyin 1g Q12 Day 2 Merrem 1g IV Day 2 sputum culture pending blood culture prelim no growth Heme H/H 10.5/31.9 Endo Medium dose ISS in place Has been NPO, elevated blood sugar likely related to steroids PPX Lovenox, Protonix Case discussed with Dr. Trung Garcia <Liza Garcia - Last Filed: 11/16/17 16:41> CCU Objective - Vital Signs / Intake & Output Vital Signs (Last 4 hours): Vital Signs Temp Pulse Resp BP Pulse Ox 11/16/17 16:00 98.5 F 105 H 17 98 11/16/17 15:45 106 H 16 120/62 98 11/16/17 15:41 116 H 24 143/107 H 90 L 11/16/17 15:00 117 H 12 97 11/16/17 14:41 126 H 11 L 137/69 11/16/17 14:02 138 H 24 95 11/16/17 14:00 122 H 32 H 95 11/16/17 13:00 87 18 93 L 11/16/17 12:59 107 H 28 H 150/80 93 L Intake and Output (Last 8hrs): Intake & Output 11/16/17 11/16/17 11/16/17 06:59 14:59 22:59 Intake Total 898.8 463.3 250 Output Total 800 Balance 98.8 463.3 250 Weight 276 lb 3.2 oz Intake: IV 50 45 Intake, IV Amount 848.8 318.3 250 Right Distal Port 48.8 18.3 Right Proximal Port 800 300 250 Oral 100 0 Output: Urine 800 Urine, Voided 800 Other: # Voids Urine, Voided 1 - Medications Active Medications: Active Medications Generic Name Dose Route Start Last Admin Trade Name Freq PRN Reason Stop Dose Admin Acetaminophen 650 mg 11/15/17 09:45 11/16/17 11:55 Tylenol 325mg Tab PO 650 mg Q4 PRN Administration Pain, Mild (1-3) Albuterol/Ipratropium 3 ml 11/14/17 04:00 11/16/17 16:00 Duoneb 3 Mg/0.5 Mg (3 Ml) Ud INH 3 ml RQ4 SHAYLA Administration Enoxaparin Sodium 40 mg 11/14/17 10:00 11/16/17 09:27 Lovenox SC 40 mg DAILY SHAYLA Administration Gabapentin 800 mg 11/16/17 14:00 11/16/17 13:08 Neurontin PO 800 mg TID SHAYLA Administration Guaifenesin 200 mg 11/16/17 10:48 11/16/17 11:27 Robitussin PO 200 mg Q4H PRN Administration Cough and congestion Vancomycin/Sodium Chloride 1 gm in 200 mls @ 133 mls/hr 11/14/17 12:00 11:47 Vancomycin 1 Gm/Ns 200 Ml IVPB 11/19/17 12:01 133 mls/hr Q12H SHAYLA Administration Protocol Azithromycin 500 mg/ Sodium 250 mls @ 167 mls/hr 11/14/17 14:30 11/16/17 14: 34 Chloride IVPB 167 mls/hr Q24H SHAYLA Administration Protocol Meropenem 1 gm/ Sodium 100 mls @ 100 mls/hr 11/14/17 17:00 11/16/17 08:43 Chloride IVPB 100 mls/hr Q8H SHAYLA Administration Protocol Insulin Human Regular 0 unit 11/14/17 18:00 11/16/17 11:54 Novolin R SC 3 u Q6 SHAYLA Administration Protocol Methylprednisolone 60 mg 11/14/17 14:00 11/16/17 13:00 Solu-Medrol IVP 60 mg Q8 SHAYLA Administration Montelukast Sodium 10 mg 11/16/17 22:00 Singulair PO HS ON LICENSE OF [facility] Pantoprazole Sodium 40 mg 11/16/17 11:00 11/16/17 11:26 Protonix Ec Tab PO 40 mg DAILY SHAYLA Administration Phenol/Menthol 0 ml 11/16/17 10:45 11/16/17 13:06 Phenaseptic 1.4% Throat [place] 1 sponge Q2 PRN Administration Other Quetiapine Fumarate 400 mg 11/16/17 18:00 Seroquel Xr PO BID ON LICENSE OF [facility] Saliva Substitute 5 ml 11/16/17 12:00 11/16/17 16:08 First Magic Mouthwash PO Not Given Q4 ON LICENSE OF [facility] Sertraline HCl 100 mg 11/16/17 18:00 Zoloft PO BID ON LICENSE OF [facility] Trazodone HCl 150 mg 11/16/17 22:00 Desyrel PO [facility] - Patient Studies Lab Studies: Microbiology Studies 11/14/17 09:58 MRSA Culture (Admit) - Final Naris MRSA DETECTED 11/13/17 22:01 Blood Culture - Preliminary Blood-Venous NO GROWTH AFTER 48 HOURS 11/13/17 22:31 Blood Culture - Preliminary Blood-Venous NO GROWTH AFTER 48 HOURS 11/14/17 19:01 Gram Stain - Final Sputum Induced Sputum Culture - Final Proteus Mirabilis Lab Studies 11/16/17 11/16/17 11/16/17 Range/Units 11:44 11:00 06:23 WBC (4.8-10.8) K/uL RBC (3.80-5.20) Mil/uL Hgb (11.0-16.0) g/dL Hct (34.0-47.0) % MCV (81.0-99.0) fL MCH (27.0-31.0) pg MCHC (33.0-37.0) g/dL RDW (11.5-14.5) % Plt Count (130-400) K/uL MPV (7.2-11.7) fL Neut % (Auto) (50.0-75.0) % Lymph % (Auto) (20.0-40.0) % Alfalfa % (Auto) (0.0-10.0) % Eos % (Auto) (0.0-4.0) % Baso % (Auto) (0.0-2.0) % Neut # (Auto) (1.8-7.0) K/uL Lymph # (Auto) (1.0-4.3) K/uL Alfalfa # (Auto) (0.0-0.8) K/uL Eos # (Auto) (0.0-0.7) K/uL Baso # (Auto) (0.0-0.2) K/uL Neutrophils % (Manual) (50-75) % Lymphocytes % (Manual) (20-40) % Monocytes % (Manual) (0-10) % Platelet Estimate (NORMAL) Hypochromasia (manual) Anisocytosis (manual) Sodium (132-148) mmol/L Potassium (3.6-5.2) mmol/L Chloride (98-107) mmol/L Carbon Dioxide (22-30) mmol/L Anion Gap (10-20) BUN (7-17) mg/dL Creatinine (0.7-1.2) mg/dL Est GFR ( Amer) Est GFR (Non-Af Amer) POC Glucose (mg/dL) 224 H 293 H (65-110) mg/dL Random Glucose (65-105) mg/dL Calcium (8.6-10.4) mg/dl Phosphorus (2.5-4.5) mg/dL Magnesium (1.6-2.3) mg/dL Total Bilirubin (0.2-1.3) mg/dL AST (14-36) U/L ALT (9-52) U/L Alkaline Phosphatase (38-126) U/L Total Protein (6.3-8.3) g/dL Albumin (3.5-5.0) g/dL Globulin (2.2-3.9) gm/dL Albumin/Globulin Ratio (1.0-2.1) Vancomycin Trough 12.0 H (5.0-10.0) ug/mL 11/16/17 11/16/17 11/15/17 Range/Units 06:23 06:23 23:33 WBC 10.5 (4.8-10.8) K/uL RBC 4.12 (3.80-5.20) Mil/uL Hgb 10.5 L (11.0-16.0) g/dL Hct 31.9 L (34.0-47.0) % MCV 77.3 L (81.0-99.0) fL MCH 25.4 L (27.0-31.0) pg MCHC 32.8 L (33.0-37.0) g/dL RDW 15.0 H (11.5-14.5) % Plt Count 175 (130-400) K/uL MPV 8.4 (7.2-11.7) fL Neut % (Auto) 90.7 H (50.0-75.0) % Lymph % (Auto) 4.2 L (20.0-40.0) % Alfalfa % (Auto) 4.9 (0.0-10.0) % Eos % (Auto) 0.0 (0.0-4.0) % Baso % (Auto) 0.2 (0.0-2.0) % Neut # (Auto) 9.5 H (1.8-7.0) K/uL Lymph # (Auto) 0.4 L (1.0-4.3) K/uL Alfalfa # (Auto) 0.5 (0.0-0.8) K/uL Eos # (Auto) 0.0 (0.0-0.7) K/uL Baso # (Auto) 0.0 (0.0-0.2) K/uL Neutrophils % (Manual) 92 H (50-75) % Lymphocytes % (Manual) 5 L (20-40) % Monocytes % (Manual) 3 (0-10) % Platelet Estimate Normal (NORMAL) Hypochromasia (manual) Slight Anisocytosis (manual) Slight Sodium 143 (132-148) mmol/L Potassium 4.3 (3.6-5.2) mmol/L Chloride 108 H (98-107) mmol/L Carbon Dioxide 24 (22-30) mmol/L Anion Gap 16 (10-20) BUN 25 H (7-17) mg/dL Creatinine 0.8 (0.7-1.2) mg/dL Est GFR ( Amer) > 60 Est GFR (Non-Af Amer) > 60 POC Glucose (mg/dL) 253 H (65-110) mg/dL Random Glucose 340 H (65-105) mg/dL Calcium 9.0 (8.6-10.4) mg/dl Phosphorus 3.1 (2.5-4.5) mg/dL Magnesium 2.2 (1.6-2.3) mg/dL Total Bilirubin 0.3 (0.2-1.3) mg/dL AST 16 (14-36) U/L ALT 16 (9-52) U/L Alkaline Phosphatase 111 (38-126) U/L Total Protein 7.6 (6.3-8.3) g/dL Albumin 3.7 (3.5-5.0) g/dL Globulin 3.9 (2.2-3.9) gm/dL Albumin/Globulin Ratio 1.0 (1.0-2.1) Vancomycin Trough (5.0-10.0) ug/mL 11/15/17 Range/Units 17:34 WBC (4.8-10.8) K/uL RBC (3.80-5.20) Mil/uL Hgb (11.0-16.0) g/dL Hct (34.0-47.0) % MCV (81.0-99.0) fL MCH (27.0-31.0) pg MCHC (33.0-37.0) g/dL RDW (11.5-14.5) % Plt Count (130-400) K/uL MPV (7.2-11.7) fL Neut % (Auto) (50.0-75.0) % Lymph % (Auto) (20.0-40.0) % Alfalfa % (Auto) (0.0-10.0) % Eos % (Auto) (0.0-4.0) % Baso % (Auto) (0.0-2.0) % Neut # (Auto) (1.8-7.0) K/uL Lymph # (Auto) (1.0-4.3) K/uL Alfalfa # (Auto) (0.0-0.8) K/uL Eos # (Auto) (0.0-0.7) K/uL Baso # (Auto) (0.0-0.2) K/uL Neutrophils % (Manual) (50-75) % Lymphocytes % (Manual) (20-40) % Monocytes % (Manual) (0-10) % Platelet Estimate (NORMAL) Hypochromasia (manual) Anisocytosis (manual) Sodium (132-148) mmol/L Potassium (3.6-5.2) mmol/L Chloride (98-107) mmol/L Carbon Dioxide (22-30) mmol/L Anion Gap (10-20) BUN (7-17) mg/dL Creatinine (0.7-1.2) mg/dL Est GFR ( Amer) Est GFR (Non-Af Amer) POC Glucose (mg/dL) 251 H (65-110) mg/dL Random Glucose (65-105) mg/dL Calcium (8.6-10.4) mg/dl Phosphorus (2.5-4.5) mg/dL Magnesium (1.6-2.3) mg/dL Total Bilirubin (0.2-1.3) mg/dL AST (14-36) U/L ALT (9-52) U/L Alkaline Phosphatase (38-126) U/L Total Protein (6.3-8.3) g/dL Albumin (3.5-5.0) g/dL Globulin (2.2-3.9) gm/dL Albumin/Globulin Ratio (1.0-2.1) Vancomycin Trough (5.0-10.0) ug/mL Laboratory Results - last 24 hr 11/15/17 11/15/17 11/16/17 17:34 23:33 06:23 WBC 10.5 RBC 4.12 Hgb 10.5 L Hct 31.9 L MCV 77.3 L MCH 25.4 L MCHC 32.8 L RDW 15.0 H Plt Count 175 MPV 8.4 Neut % (Auto) 90.7 H Lymph % (Auto) 4.2 L Alfalfa % (Auto) 4.9 Eos % (Auto) 0.0 Baso % (Auto) 0.2 Neut # (Auto) 9.5 H Lymph # (Auto) 0.4 L Alfalfa # (Auto) 0.5 Eos # (Auto) 0.0 Baso # (Auto) 0.0 Neutrophils % (Manual) 92 H Lymphocytes % (Manual) 5 L Monocytes % (Manual) 3 Platelet Estimate Normal Hypochromasia (manual) Slight Anisocytosis (manual) Slight Sodium Potassium Chloride Carbon Dioxide Anion Gap BUN Creatinine Est GFR ( Amer) Est GFR (Non-Af Amer) POC Glucose (mg/dL) 251 H 253 H Random Glucose Calcium Phosphorus Magnesium Total Bilirubin AST ALT Alkaline Phosphatase Total Protein Albumin Globulin Albumin/Globulin Ratio Vancomycin Trough 11/16/17 11/16/17 11/16/17 06:23 06:23 11:00 WBC RBC Hgb Hct MCV MCH MCHC RDW Plt Count MPV Neut % (Auto) Lymph % (Auto) Alfalfa % (Auto) Eos % (Auto) Baso % (Auto) Neut # (Auto) Lymph # (Auto) Alfalfa # (Auto) Eos # (Auto) Baso # (Auto) Neutrophils % (Manual) Lymphocytes % (Manual) Monocytes % (Manual) Platelet Estimate Hypochromasia (manual) Anisocytosis (manual) Sodium 143 Potassium 4.3 Chloride 108 H Carbon Dioxide 24 Anion Gap 16 BUN 25 H Creatinine 0.8 Est GFR ( Amer) > 60 Est GFR (Non-Af Amer) > 60 POC Glucose (mg/dL) 293 H Random Glucose 340 H Calcium 9.0 Phosphorus 3.1 Magnesium 2.2 Total Bilirubin 0.3 AST 16 ALT 16 Alkaline Phosphatase 111 Total Protein 7.6 Albumin 3.7 Globulin 3.9 Albumin/Globulin Ratio 1.0 Vancomycin Trough 12.0 H 11/16/17 11:44 WBC RBC Hgb Hct MCV MCH MCHC RDW Plt Count MPV Neut % (Auto) Lymph % (Auto) Alfalfa % (Auto) Eos % (Auto) Baso % (Auto) Neut # (Auto) Lymph # (Auto) Alfalfa # (Auto) Eos # (Auto) Baso # (Auto) Neutrophils % (Manual) Lymphocytes % (Manual) Monocytes % (Manual) Platelet Estimate Hypochromasia (manual) Anisocytosis (manual) Sodium Potassium Chloride Carbon Dioxide Anion Gap BUN Creatinine Est GFR ( Amer) Est GFR (Non-Af Amer) POC Glucose (mg/dL) 224 H Random Glucose Calcium Phosphorus Magnesium Total Bilirubin AST ALT Alkaline Phosphatase Total Protein Albumin Globulin Albumin/Globulin Ratio Vancomycin Trough EKG/Cardiology Studies: Cardiology / EKG Studies 11/16/17 14:58 EKG [ELECTROCARDIOGRAM] Routine Comment: Mode Of Transportation: Reason For Exam: chest pain Assessment/Plan - Assessment and Plan (Free Text) Plan: Patient well known to ICU team and pulmonary team. Patient has episodes of coughing and unable to expectorate her trach secretions. -Patient is aspirating and trach cuff should be inflated at all times -Patient will benefit ffrom ENT eval for other etiologies of trach related coughing. -Patient remains hemodynamcally stable on trach collar. -local anesthetic seems to break patient's coughing spell. d/w ICU team - Date & Time Date: 11/16/17 Time: 16:41
[2017-11-16] MEDS ORDERED: Influenza Vaccine 60 mcg/0.5 mL SYR (4YR UP) IM ONE (10:00)
[2017-11-16] MEDS: Phenol Topical 1.4% Throat Spray (180 ml) MT PRN ×2 (11:07→13:06)
[2017-11-16] MEDS: Mag&Al/Simet/Diphen/Lido 237 ML KIT PO SCH ×3 (11:26→21:28)
[2017-11-16] MEDS: Pantoprazole 40 mg EC Tab PO SCH (11:26)
[2017-11-16] MEDS: guaiFENesin 100 mg/5 ml Syrup UD PO PRN (11:27)
--- NOTE | 2017-11-16 12:10 | CP.PCM.PN ---
Subjective - Date & Time of Evaluation Date of Evaluation: 11/16/17 Time of Evaluation: 07:00 - Subjective Subjective: patient seen and examined Patient is off ventilator and on Ventimask Patient is awake and responsive Still having cough afebrile Copious secretions Objective - Vital Signs/Intake and Output Vital Signs (last 24 hours): Temp Pulse Resp BP Pulse Ox 98.4 F 81 14 140/71 96 11/16/17 12:00 11/16/17 12:00 11/16/17 12:00 11/16/17 11:59 11/16/17 12:00 Intake and Output: 11/16/17 11/16/17 06:59 18:59 Intake Total 923.2 213.3 Output Total 1100 Balance -176.8 213.3 - Medications Medications: Current Medications Acetaminophen (Tylenol 325mg Tab) 650 mg PO Q4 PRN PRN Reason: Pain, Mild (1-3) Last Admin: 11/16/17 11:55 Dose: 650 mg Albuterol/Ipratropium (Duoneb 3 Mg/0.5 Mg (3 Ml) Ud) 3 ml INH RQ4 SHAYLA Last Admin: 11/16/17 07:54 Dose: 3 ml Enoxaparin Sodium (Lovenox) 40 mg SC DAILY SHAYLA Last Admin: 11/16/17 09:27 Dose: 40 mg Gabapentin (Neurontin) 800 mg PO TID SHAYLA Guaifenesin (Robitussin) 200 mg PO Q4H PRN PRN Reason: Cough and congestion Last Admin: 11/16/17 11:27 Dose: 200 mg Vancomycin/Sodium Chloride (Vancomycin 1 Gm/Ns 200 Ml) 1 gm in 200 mls @ 133 mls/hr IVPB Q12H SHAYLA PRN Reason: Protocol Stop: 11/19/17 12:01 Last Admin: 11/16/17 11:47 Dose: 133 mls/hr Azithromycin 500 mg/ Sodium (Chloride) 250 mls @ 167 mls/hr IVPB Q24H SHAYLA PRN Reason: Protocol Last Admin: 11/15/17 13:33 Dose: 167 mls/hr Meropenem 1 gm/ Sodium (Chloride) 100 mls @ 100 mls/hr IVPB Q8H SHAYLA PRN Reason: Protocol Last Admin: 11/16/17 08:43 Dose: 100 mls/hr Insulin Human Regular (Novolin R) 0 unit SC Q6 [facility] PRN Reason: Protocol Last Admin: 11/16/17 11:54 Dose: 3 u Methylprednisolone (Solu-Medrol) 60 mg IVP Q8 [facility] Last Admin: 11/16/17 06:40 Dose: 60 mg Montelukast Sodium (Singulair) 10 mg PO HS [facility] Pantoprazole Sodium (Protonix Ec Tab) 40 mg PO DAILY [facility] Last Admin: 11/16/17 11:26 Dose: 40 mg Phenol/Menthol (Phenaseptic 1.4% Throat Wesley) 0 ml MT Q2 PRN PRN Reason: Other Last Admin: 11/16/17 11:07 Dose: 1 sponge Quetiapine Fumarate (Seroquel Xr) 400 mg PO BID [facility] Saliva Substitute (First Magic Mouthwash) 5 ml PO Q4 [facility] Last Admin: 11/16/17 11:26 Dose: 5 ml Sertraline HCl (Zoloft) 100 mg PO BID SHAYLA Trazodone HCl (Desyrel) 150 mg PO HS [facility] - Labs Labs: 11/16/17 06:23 11/16/17 06:23 - Head Exam Head Exam: ATRAUMATIC, NORMOCEPHALIC - ENT Exam ENT Exam: Mucous Membranes Moist - Respiratory Exam Respiratory Exam: Rales, Rhonchi - Cardiovascular Exam Cardiovascular Exam: REGULAR RHYTHM - GI/Abdominal Exam GI & Abdominal Exam: Soft, Normal Bowel Sounds Assessment and Plan (1) Pneumonia Assessment & Plan: continue IV antibiotics Followup culture and sensitivity Nebulizer treatment Steroids Status: Acute (2) COPD exacerbation Status: Acute (3) Tracheostomy dependence Status: Acute
[2017-11-16] MEDS ORDERED: Albuterol 0.042% Inhal Sol (1.25 mg/3 mL) UD ONE (14:01)
[2017-11-16] MEDS ORDERED: Propofol 10 mg/ml Inj (20 ML) ONE (14:08)
[2017-11-16] MEDS: Azithromycin 500 MG in Sodium Chloride 0.9% 250 ML IVPB SCH (14:34)
[2017-11-16] MEDS ORDERED: Albuterol 0.042% Inhal Sol (1.25 mg/3 mL) UD INH ONE (15:30)
[2017-11-16] MEDS ORDERED: Lidocaine 2% Inj (20ml) IV ONE (15:30)
[2017-11-16] MEDS ORDERED: Propofol 10 mg/ml Inj (20 ML) IV ONE (15:30)
--- NOTE | 2017-11-16 17:28 | CP.PCM.PN ---
Subjective - Date & Time of Evaluation Date of Evaluation: 11/16/17 Time of Evaluation: 08:00 - Subjective Subjective: comfortable on trach collar cultures reviewed Objective - Vital Signs/Intake and Output Vital Signs (last 24 hours): Temp Pulse Resp BP Pulse Ox 98.5 F 107 H 21 125/65 94 L 11/16/17 16:00 11/16/17 17:00 11/16/17 17:00 11/16/17 16:45 11/16/17 17:00 Intake and Output: 11/16/17 11/16/17 06:59 18:59 Intake Total 923.2 813.3 Output Total 1100 Balance -176.8 813.3 - Medications Medications: Current Medications Acetaminophen (Tylenol 325mg Tab) 650 mg PO Q4 PRN PRN Reason: Pain, Mild (1-3) Last Admin: 11/16/17 11:55 Dose: 650 mg Albuterol/Ipratropium (Duoneb 3 Mg/0.5 Mg (3 Ml) Ud) 3 ml INH RQ4 [facility] Last Admin: 11/16/17 16:00 Dose: 3 ml Enoxaparin Sodium (Lovenox) 40 mg SC DAILY [facility] Last Admin: 11/16/17 09:27 Dose: 40 mg Gabapentin (Neurontin) 800 mg PO TID [facility] Last Admin: 11/16/17 13:08 Dose: 800 mg Guaifenesin (Robitussin) 200 mg PO Q4H PRN PRN Reason: Cough and congestion Last Admin: 11/16/17 11:27 Dose: 200 mg Vancomycin/Sodium Chloride (Vancomycin 1 Gm/Ns 200 Ml) 1 gm in 200 mls @ 133 mls/hr IVPB Q12H [facility] PRN Reason: Protocol Stop: 11/19/17 12:01 Last Admin: 11/16/17 11:47 Dose: 133 mls/hr Azithromycin 500 mg/ Sodium (Chloride) 250 mls @ 167 mls/hr IVPB Q24H [facility] PRN Reason: Protocol Last Admin: 11/16/17 14:34 Dose: 167 mls/hr Meropenem 1 gm/ Sodium (Chloride) 100 mls @ 100 mls/hr IVPB Q8H [facility] PRN Reason: Protocol Last Admin: 11/16/17 17:04 Dose: 100 mls/hr Insulin Human Regular (Novolin R) 0 unit SC Q6 [facility] PRN Reason: Protocol Last Admin: 11/16/17 11:54 Dose: 3 u Methylprednisolone (Solu-Medrol) 60 mg IVP Q8 [facility] Last Admin: 11/16/17 13:00 Dose: 60 mg Montelukast Sodium (Singulair) 10 mg PO HS [facility] Pantoprazole Sodium (Protonix Ec Tab) 40 mg PO DAILY [facility] Last Admin: 11/16/17 11:26 Dose: 40 mg Phenol/Menthol (Phenaseptic 1.4% Throat [place]) 0 ml MT Q2 PRN PRN Reason: Other Last Admin: 11/16/17 13:06 Dose: 1 sponge Quetiapine Fumarate (Seroquel Xr) 400 mg PO BID [facility] Saliva Substitute (First Magic Mouthwash) 5 ml PO Q4 [facility] Last Admin: 11/16/17 16:08 Dose: Not Given Sertraline HCl (Zoloft) 100 mg PO BID [facility] Trazodone HCl (Desyrel) 150 mg PO HS [facility] - Labs Labs: 11/16/17 06:23 11/16/17 06:23 - Constitutional Appears: Non-toxic, Chronically Ill - Head Exam Head Exam: NORMOCEPHALIC - Eye Exam Eye Exam: PERRL - ENT Exam ENT Exam: Mucous Membranes Dry - Neck Exam Neck Exam: absent: Lymphadenopathy - Respiratory Exam Respiratory Exam: Decreased Breath Sounds - Cardiovascular Exam Cardiovascular Exam: REGULAR RHYTHM - GI/Abdominal Exam GI & Abdominal Exam: Distended, Soft - Rectal Exam Rectal Exam: Deferred - Exam Exam: NORMAL INSPECTION Assessment and Plan (1) COPD exacerbation Status: Acute (2) Chr obstructive pulmonary disease w/ acute lower respiratory infxn Status: Acute (3) Hypoxia Status: Acute (4) Pneumonia Status: Acute - Assessment and Plan (Free Text) Assessment: cont iv merrem ok to d/c vanco
[2017-11-16] MEDS: QUEtiapine 200 mg XR Tab PO SCH (17:49)
[2017-11-16] MEDS: (Novolog) Insulin Aspart, Recombinant 100 u/ml 10 ml vial SC SCH (21:30)
[2017-11-17] MEDS: Albuterol-Ipratrop 3 mg / 0.5 (3 ml) UD INH SCH ×7 (00:17→23:32)
[2017-11-17] MEDS: Meropenem 1 GM in Sodium Chloride 0.9% 100 ML IVPB SCH ×3 (01:21→16:51)
[2017-11-17] MEDS: Phenol Topical 1.4% Throat Spray (180 ml) MT PRN (01:22)
[2017-11-17] MEDS: Mag&Al/Simet/Diphen/Lido 237 ML KIT PO SCH ×6 (01:22→20:00)
--- NOTE | 2017-11-17 03:11 | PN ---
DATE: 11/16/2017 SUBJECTIVE: Ehsan is off the ventilator. She is breathing comfortably with tracheostomy. Decreased secretion. No fever. No chills. PHYSICAL EXAMINATION: VITAL SIGNS: Blood pressure 130/59, pulse 80, respiratory rate 21, and temperature 98. LUNGS: Decreased air entry. Positive rhonchi. CARDIOVASCULAR SYSTEM: S1 and S2 are regular. ABDOMEN: Soft and nontender. Bowel sounds are positive. ASSESSMENT: 1. Respiratory failure, resolved. 2. Tracheobronchitis, rule out pneumonia. 3. Exacerbation of bronchial asthma. 4. Multidrug resistant urinary tract infection , on Merrem. 5. Anxiety and depression. PLAN: Medical management. Monitor the patient. Ad Khan MD
[2017-11-17 06:40] LABS: BASO % 0.1 % (0.0-2.0); HEMOGLOBIN 10.5 g/dL (11.0-16.0); LYMPH # 0.6 K/uL (1.0-4.3); LYMPH % 6.7 % (20.0-40.0); MEAN CELL VOLUME 77.4 fL (81.0-99.0); MEAN CORPUSCULAR HEMOGLOBIN 25.4 pg (27.0-31.0); MEAN CORPUSCULAR HGB CONC 32.8 g/dL (33.0-37.0); MEAN PLATELET VOLUME 8.4 fL (7.2-11.7); MONO # 0.5 K/uL (0.0-0.8); MONO % 5.7 % (0.0-10.0); NEUT # 7.8 K/uL (1.8-7.0); NEUT % 87.5 % (50.0-75.0); PLATELET COUNT 175 K/uL (130-400); RBC 4.15 Mil/uL (3.80-5.20); RED CELL DISTRIBUTION WIDTH 15.3 % (11.5-14.5); WHITE BLOOD COUNT 8.9 K/uL (4.8-10.8)
[2017-11-17 07:01] LABS: ALBUMIN 3.8 g/dL (3.5-5.0); ALT/SGPT 24 U/L (9-52); AST/SGOT 18 U/L (14-36); BLOOD UREA NITROGEN 22 mg/dL (7-17); GFR NON-AFRICAN AMERICAN > 60
[2017-11-17 08:47] LABS: LYMPHOCYTE 4 % (20-40); MONOCYTE 4 % (0-10); NEUTROPHIL 92 % (50-75); TOTAL CELLS COUNTED 100
[2017-11-17 08:48] LABS: ANISOCYTOSIS SLIGHT; PLATELET ESTIMATE NORMAL (NORMAL)
[2017-11-17 08:49] LABS: HYPOCHROMIC SLIGHT; MICROCYTOSIS SLIGHT; POLYCHROMIC SLIGHT; TOXIC GRANULATION PRESENT
[2017-11-17 08:50] LABS: LARGE PLATELETS PRESENT
[2017-11-17] MEDS: Enoxaparin 40 mg Syringe SC SCH (09:31)
[2017-11-17] MEDS: Pantoprazole 40 mg EC Tab PO SCH (09:32)
[2017-11-17] MEDS: (Novolog) Insulin Aspart, Recombinant 100 u/ml 10 ml vial SC SCH ×4 (09:35→22:00)
[2017-11-17] MEDS: QUEtiapine 200 mg XR Tab PO SCH ×2 (10:00→18:26)
[2017-11-17] MEDS: Vancomycin 1 gm/NS 200 ml 1 GM/200 ML BAG IVPB SCH ×2 (11:13→23:47)
[2017-11-17] MEDS: Azithromycin 500 MG in Sodium Chloride 0.9% 250 ML IVPB SCH (14:01)
[2017-11-17] MEDS: MethylPREDNISolone 40 mg Vial IVP SCH ×2 (14:48→21:05)
--- NOTE | 2017-11-17 18:27 | CP.PCM.PN ---
Subjective - Date & Time of Evaluation Date of Evaluation: 11/17/17 Time of Evaluation: 16:00 - Subjective Subjective: patient seen and examined On trach collar Cough much better Afebrile Patient is awake and responsive Objective - Vital Signs/Intake and Output Vital Signs (last 24 hours): Temp Pulse Resp BP Pulse Ox 97.5 F L 88 18 172/98 H 96 11/17/17 08:00 11/17/17 18:00 11/17/17 18:00 11/17/17 15:19 11/17/17 14:00 Intake and Output: 11/17/17 11/17/17 06:59 18:59 Intake Total 300 550 Output Total 300 Balance 0 550 - Medications Medications: Current Medications Acetaminophen (Tylenol 325mg Tab) 650 mg PO Q4 PRN PRN Reason: Pain, Mild (1-3) Last Admin: 11/17/17 06:57 Dose: 650 mg Albuterol/Ipratropium (Duoneb 3 Mg/0.5 Mg (3 Ml) Ud) 3 ml INH RQ4 [facility] Last Admin: 11/17/17 13:41 Dose: 3 ml Chlordiazepoxide (Librium) 10 mg PO Q8 PRN PRN Reason: Anxiety Last Admin: 11/17/17 11:13 Dose: 10 mg Enoxaparin Sodium (Lovenox) 40 mg SC DAILY [facility] Last Admin: 11/17/17 09:31 Dose: 40 mg Gabapentin (Neurontin) 800 mg PO TID [facility] Last Admin: 11/17/17 14:01 Dose: 800 mg Guaifenesin (Robitussin) 200 mg PO Q4H PRN PRN Reason: Cough and congestion Last Admin: 11/16/17 11:27 Dose: 200 mg Vancomycin/Sodium Chloride (Vancomycin 1 Gm/Ns 200 Ml) 1 gm in 200 mls @ 133 mls/hr IVPB Q12H [facility] PRN Reason: Protocol Stop: 11/19/17 12:01 Last Admin: 11/17/17 11:13 Dose: 133 mls/hr Azithromycin 500 mg/ Sodium (Chloride) 250 mls @ 167 mls/hr IVPB Q24H [facility] PRN Reason: Protocol Last Admin: 11/17/17 14:01 Dose: 167 mls/hr Meropenem 1 gm/ Sodium (Chloride) 100 mls @ 100 mls/hr IVPB Q8H [facility] PRN Reason: Protocol Last Admin: 11/17/17 16:51 Dose: 100 mls/hr Insulin Aspart (Novolog) 0 unit SC ACHS [facility] PRN Reason: Protocol Last Admin: 11/17/17 16:50 Dose: 2 u Methylprednisolone (Solu-Medrol) 40 mg IVP Q8 [facility] Last Admin: 11/17/17 14:48 Dose: 40 mg Montelukast Sodium (Singulair) 10 mg PO HS [facility] Last Admin: 11/16/17 21:30 Dose: 10 mg Pantoprazole Sodium (Protonix Ec Tab) 40 mg PO DAILY [facility] Last Admin: 11/17/17 09:32 Dose: 40 mg Phenol/Menthol (Phenaseptic 1.4% Throat [place]) 0 ml MT Q2 PRN PRN Reason: Other Last Admin: 11/17/17 01:22 Dose: 1 sponge Quetiapine Fumarate (Seroquel Xr) 400 mg PO BID [facility] Last Admin: 11/17/17 10:00 Dose: 400 mg Saliva Substitute (First Magic Mouthwash) 5 ml PO Q4 [facility] Last Admin: 11/17/17 16:49 Dose: 5 ml Sertraline HCl (Zoloft) 100 mg PO BID [facility] Last Admin: 11/17/17 09:34 Dose: 100 mg Trazodone HCl (Desyrel) 150 mg PO [facility] Last Admin: 11/16/17 21:28 Dose: 150 mg - Labs Labs: 11/17/17 06:26 11/17/17 06:26 - Head Exam Head Exam: ATRAUMATIC, NORMOCEPHALIC - ENT Exam ENT Exam: Mucous Membranes Moist - Respiratory Exam Respiratory Exam: Rales - Cardiovascular Exam Cardiovascular Exam: REGULAR RHYTHM - GI/Abdominal Exam GI & Abdominal Exam: Soft Assessment and Plan (1) Pneumonia Assessment & Plan: Continue IV antibiotics Continue nebulizer treatment Continue steroids Ventimask sputum positive for Proteus Status: Acute (2) COPD exacerbation Status: Acute (3) Tracheostomy dependence Status: Acute
--- NOTE | 2017-11-17 23:08 | CP.PCM.PN ---
Objective - Vital Signs/Intake and Output Vital Signs (last 24 hours): Temp Pulse Resp BP Pulse Ox 97.5 F L 80 18 136/74 96 11/17/17 08:00 11/17/17 21:00 11/17/17 21:00 11/17/17 19:56 11/17/17 14:00 Intake and Output: 11/17/17 11/18/17 18:59 06:59 Intake Total 550 Balance 550 - Medications Medications: Current Medications Acetaminophen (Tylenol 325mg Tab) 650 mg PO Q4 PRN PRN Reason: Pain, Mild (1-3) Last Admin: 11/17/17 06:57 Dose: 650 mg Albuterol/Ipratropium (Duoneb 3 Mg/0.5 Mg (3 Ml) Ud) 3 ml INH RQ4 [facility] Last Admin: 11/17/17 13:41 Dose: 3 ml Chlordiazepoxide (Librium) 10 mg PO Q8 PRN PRN Reason: Anxiety Last Admin: 11/17/17 21:05 Dose: 10 mg Enoxaparin Sodium (Lovenox) 40 mg SC DAILY [facility] Last Admin: 11/17/17 09:31 Dose: 40 mg Gabapentin (Neurontin) 800 mg PO TID [facility] Last Admin: 11/17/17 18:26 Dose: 800 mg Guaifenesin (Robitussin) 200 mg PO Q4H PRN PRN Reason: Cough and congestion Last Admin: 11/16/17 11:27 Dose: 200 mg Vancomycin/Sodium Chloride (Vancomycin 1 Gm/Ns 200 Ml) 1 gm in 200 mls @ 133 mls/hr IVPB Q12H [facility] PRN Reason: Protocol Stop: 11/19/17 12:01 Last Admin: 11/17/17 11:13 Dose: 133 mls/hr Azithromycin 500 mg/ Sodium (Chloride) 250 mls @ 167 mls/hr IVPB Q24H [facility] PRN Reason: Protocol Last Admin: 11/17/17 14:01 Dose: 167 mls/hr Meropenem 1 gm/ Sodium (Chloride) 100 mls @ 100 mls/hr IVPB Q8H [facility] PRN Reason: Protocol Last Admin: 11/17/17 16:51 Dose: 100 mls/hr Insulin Aspart (Novolog) 0 unit SC ACHS [facility] PRN Reason: Protocol Last Admin: 11/17/17 22:00 Dose: Not Given Methylprednisolone (Solu-Medrol) 40 mg IVP Q8 [facility] Last Admin: 11/17/17 21:05 Dose: 40 mg Montelukast Sodium (Singulair) 10 mg PO [facility] Last Admin: 11/17/17 21:05 Dose: 10 mg Pantoprazole Sodium (Protonix Ec Tab) 40 mg PO DAILY [facility] Last Admin: 11/17/17 09:32 Dose: 40 mg Phenol/Menthol (Phenaseptic 1.4% Throat [place]) 0 ml MT Q2 PRN PRN Reason: Other Last Admin: 11/17/17 01:22 Dose: 1 sponge Quetiapine Fumarate (Seroquel Xr) 400 mg PO BID [facility] Last Admin: 11/17/17 18:26 Dose: 400 mg Saliva Substitute (First Magic Mouthwash) 5 ml PO Q4 [facility] Last Admin: 11/17/17 20:00 Dose: Not Given Sertraline HCl (Zoloft) 100 mg PO BID [facility] Last Admin: 11/17/17 18:26 Dose: 100 mg Trazodone HCl (Desyrel) 150 mg PO [facility] Last Admin: 11/16/17 21:28 Dose: 150 mg - Labs Labs: 11/17/17 06:26 11/17/17 06:26
[2017-11-18] MEDS: Mag&Al/Simet/Diphen/Lido 237 ML KIT PO SCH ×6 (00:21→20:16)
[2017-11-18] MEDS: Meropenem 1 GM in Sodium Chloride 0.9% 100 ML IVPB SCH ×3 (01:11→16:05)
--- NOTE | 2017-11-18 02:57 | PN ---
DATE: 11/17/2017 SUBJECTIVE: The patient is feeling better. She is off ventilator. She is breathing well. No congestion. PHYSICAL EXAMINATION: VITAL SIGNS: BP 136/74, pulse 77, respiratory rate 18, temperature 98. LUNGS: Bilateral rhonchi. CVS: S1, S2 regular. ABDOMEN: Soft. ASSESSMENT: 1. Acute on chronic respiratory failure, tracheostomy. 2. Bronchial asthma exacerbation. 3. Diabetes. 4. Major depression. 5. Anemia. PLAN: Continue current medication, nebulizer, Solu-Medrol. Monitor the patient. Ad Khan MD
[2017-11-18] MEDS: Albuterol-Ipratrop 3 mg / 0.5 (3 ml) UD INH SCH ×5 (03:07→19:45)
[2017-11-18 05:41] LABS: BASO % 0.3 % (0.0-2.0); HEMOGLOBIN 11.2 g/dL (11.0-16.0); LYMPH # 1.3 K/uL (1.0-4.3); LYMPH % 11.5 % (20.0-40.0); MEAN CELL VOLUME 77.9 fL (81.0-99.0); MEAN CORPUSCULAR HEMOGLOBIN 25.5 pg (27.0-31.0); MEAN CORPUSCULAR HGB CONC 32.8 g/dL (33.0-37.0); MONO # 0.7 K/uL (0.0-0.8); MONO % 6.4 % (0.0-10.0); NEUT # 9.3 K/uL (1.8-7.0); NEUT % 81.8 % (50.0-75.0); RBC 4.38 Mil/uL (3.80-5.20); RED CELL DISTRIBUTION WIDTH 14.8 % (11.5-14.5); WHITE BLOOD COUNT 11.4 K/uL (4.8-10.8)
[2017-11-18 05:57] LABS: ALB/GLOB RATIO 0.9 (1.0-2.1); ALBUMIN 3.6 g/dL (3.5-5.0); ALT/SGPT 21 U/L (9-52); AST/SGOT 19 U/L (14-36); BLOOD UREA NITROGEN 20 mg/dL (7-17); CALCIUM 9.1 mg/dl (8.6-10.4); GFR NON-AFRICAN AMERICAN > 60
[2017-11-18] MEDS: MethylPREDNISolone 40 mg Vial IVP SCH ×3 (06:06→21:43)
[2017-11-18] MEDS: (Novolog) Insulin Aspart, Recombinant 100 u/ml 10 ml vial SC SCH ×4 (08:12→22:00)
[2017-11-18] MEDS: Pantoprazole 40 mg EC Tab PO SCH (09:16)
[2017-11-18] MEDS: Enoxaparin 40 mg Syringe SC SCH (09:16)
[2017-11-18] MEDS: QUEtiapine 200 mg XR Tab PO SCH ×2 (09:17→17:58)
[2017-11-18] MEDS: guaiFENesin 100 mg/5 ml Syrup UD PO PRN ×2 (09:23→15:07)
--- NOTE | 2017-11-18 10:50 | CP.PCM.PN ---
Subjective - Date & Time of Evaluation Date of Evaluation: 11/18/17 Time of Evaluation: 07:30 - Subjective Subjective: patient seen and examined Patient is awake and responsive No shortness of breath Tolerating trach collar Less cough Less secretions Afebrile Objective - Vital Signs/Intake and Output Vital Signs (last 24 hours): Temp Pulse Resp BP Pulse Ox 97.8 F 72 21 156/81 H 96 11/18/17 04:00 11/18/17 06:23 11/18/17 06:23 11/18/17 06:23 11/17/17 14:00 Intake and Output: 11/18/17 11/18/17 06:59 18:59 Intake Total 200 Output Total 400 Balance -200 - Medications Medications: Current Medications Acetaminophen (Tylenol 325mg Tab) 650 mg PO Q4 PRN PRN Reason: Pain, Mild (1-3) Last Admin: 11/17/17 06:57 Dose: 650 mg Albuterol/Ipratropium (Duoneb 3 Mg/0.5 Mg (3 Ml) Ud) 3 ml INH RQ4 [facility] Last Admin: 11/18/17 07:30 Dose: 3 ml Chlordiazepoxide (Librium) 10 mg PO Q8 PRN PRN Reason: Anxiety Last Admin: 11/17/17 21:05 Dose: 10 mg Enoxaparin Sodium (Lovenox) 40 mg SC DAILY [facility] Last Admin: 11/18/17 09:16 Dose: 40 mg Gabapentin (Neurontin) 800 mg PO TID [facility] Last Admin: 11/18/17 09:16 Dose: 800 mg Guaifenesin (Robitussin) 200 mg PO Q4H PRN PRN Reason: Cough and congestion Last Admin: 11/18/17 09:23 Dose: 200 mg Vancomycin/Sodium Chloride (Vancomycin 1 Gm/Ns 200 Ml) 1 gm in 200 mls @ 133 mls/hr IVPB Q12H [facility] PRN Reason: Protocol Stop: 11/19/17 12:01 Last Admin: 11/17/17 23:47 Dose: 133 mls/hr Azithromycin 500 mg/ Sodium (Chloride) 250 mls @ 167 mls/hr IVPB Q24H [facility] PRN Reason: Protocol Last Admin: 11/17/17 14:01 Dose: 167 mls/hr Meropenem 1 gm/ Sodium (Chloride) 100 mls @ 100 mls/hr IVPB Q8H [facility] PRN Reason: Protocol Last Admin: 11/18/17 08:15 Dose: 100 mls/hr Insulin Aspart (Novolog) 0 unit SC ACHS [facility] PRN Reason: Protocol Last Admin: 11/18/17 08:12 Dose: 2 u Methylprednisolone (Solu-Medrol) 40 mg IVP Q8 [facility] Last Admin: 11/18/17 06:06 Dose: 40 mg Montelukast Sodium (Singulair) 10 mg PO [facility] Last Admin: 11/17/17 21:05 Dose: 10 mg Pantoprazole Sodium (Protonix Ec Tab) 40 mg PO DAILY [facility] Last Admin: 11/18/17 09:16 Dose: 40 mg Phenol/Menthol (Phenaseptic 1.4% Throat [place]) 0 ml MT Q2 PRN PRN Reason: Other Last Admin: 11/17/17 01:22 Dose: 1 sponge Quetiapine Fumarate (Seroquel Xr) 400 mg PO BID [facility] Last Admin: 11/18/17 09:17 Dose: 400 mg Saliva Substitute (First Magic Mouthwash) 5 ml PO Q4 [facility] Last Admin: 11/18/17 08:15 Dose: 5 ml Sertraline HCl (Zoloft) 100 mg PO BID [facility] Last Admin: 11/18/17 09:17 Dose: 100 mg Trazodone HCl (Desyrel) 150 mg PO [facility] Last Admin: 11/17/17 21:47 Dose: 150 mg - Labs Labs: 11/18/17 05:37 11/18/17 05:37 - Head Exam Head Exam: ATRAUMATIC, NORMOCEPHALIC - ENT Exam ENT Exam: Mucous Membranes Moist - Respiratory Exam Respiratory Exam: Rales, Rhonchi - Cardiovascular Exam Cardiovascular Exam: REGULAR RHYTHM - GI/Abdominal Exam GI & Abdominal Exam: Soft, Normal Bowel Sounds Assessment and Plan (1) Pneumonia Assessment & Plan: continue antibiotics Follow up ABG and chest x-ray Nebulizer treatment Steroids Status: Acute (2) COPD exacerbation Status: Acute (3) Tracheostomy dependence Status: Acute
[2017-11-18] MEDS: Vancomycin 1 gm/NS 200 ml 1 GM/200 ML BAG IVPB SCH (11:58)
[2017-11-18] MEDS: Azithromycin 500 MG in Sodium Chloride 0.9% 250 ML IVPB SCH (13:30)
--- NOTE | 2017-11-18 17:17 | CP.PCM.PN ---
Subjective - Date & Time of Evaluation Date of Evaluation: 11/18/17 Time of Evaluation: 08:00 - Subjective Subjective: afeb on rounds on trach collar NAD Objective - Vital Signs/Intake and Output Vital Signs (last 24 hours): Temp Pulse Resp BP Pulse Ox 97.8 F 72 21 156/81 H 96 11/18/17 04:00 11/18/17 06:23 11/18/17 06:23 11/18/17 06:23 11/17/17 14:00 Intake and Output: 11/18/17 11/18/17 06:59 18:59 Intake Total 200 Output Total 400 Balance -200 - Medications Medications: Current Medications Acetaminophen (Tylenol 325mg Tab) 650 mg PO Q4 PRN PRN Reason: Pain, Mild (1-3) Last Admin: 11/17/17 06:57 Dose: 650 mg Albuterol/Ipratropium (Duoneb 3 Mg/0.5 Mg (3 Ml) Ud) 3 ml INH RQ4 [facility] Last Admin: 11/18/17 16:16 Dose: 3 ml Chlordiazepoxide (Librium) 10 mg PO Q8 PRN PRN Reason: Anxiety Last Admin: 11/17/17 21:05 Dose: 10 mg Enoxaparin Sodium (Lovenox) 40 mg SC DAILY [facility] Last Admin: 11/18/17 09:16 Dose: 40 mg Gabapentin (Neurontin) 800 mg PO TID [facility] Last Admin: 11/18/17 13:11 Dose: 800 mg Guaifenesin (Robitussin) 200 mg PO Q4H PRN PRN Reason: Cough and congestion Last Admin: 11/18/17 15:07 Dose: 200 mg Vancomycin/Sodium Chloride (Vancomycin 1 Gm/Ns 200 Ml) 1 gm in 200 mls @ 133 mls/hr IVPB Q12H [facility] PRN Reason: Protocol Stop: 11/19/17 12:01 Last Admin: 11/18/17 11:58 Dose: 133 mls/hr Azithromycin 500 mg/ Sodium (Chloride) 250 mls @ 167 mls/hr IVPB Q24H [facility] PRN Reason: Protocol Last Admin: 11/18/17 13:30 Dose: 167 mls/hr Meropenem 1 gm/ Sodium (Chloride) 100 mls @ 100 mls/hr IVPB Q8H [facility] PRN Reason: Protocol Last Admin: 11/18/17 16:05 Dose: 100 mls/hr Insulin Aspart (Novolog) 0 unit SC ACHS [facility] PRN Reason: Protocol Last Admin: 11/18/17 16:09 Dose: 3 u Methylprednisolone (Solu-Medrol) 40 mg IVP Q8 [facility] Last Admin: 11/18/17 13:11 Dose: 40 mg Montelukast Sodium (Singulair) 10 mg PO HS [facility] Last Admin: 11/17/17 21:05 Dose: 10 mg Pantoprazole Sodium (Protonix Ec Tab) 40 mg PO DAILY [facility] Last Admin: 11/18/17 09:16 Dose: 40 mg Phenol/Menthol (Phenaseptic 1.4% Throat [place]) 0 ml MT Q2 PRN PRN Reason: Other Last Admin: 11/17/17 01:22 Dose: 1 sponge Quetiapine Fumarate (Seroquel Xr) 400 mg PO BID [facility] Last Admin: 11/18/17 09:17 Dose: 400 mg Saliva Substitute (First Magic Mouthwash) 5 ml PO Q4 [facility] Last Admin: 11/18/17 15:59 Dose: Not Given Sertraline HCl (Zoloft) 100 mg PO BID [facility] Last Admin: 11/18/17 09:17 Dose: 100 mg Trazodone HCl (Desyrel) 150 mg PO [facility] Last Admin: 11/17/17 21:47 Dose: 150 mg - Labs Labs: 11/18/17 05:37 11/18/17 05:37 - Constitutional Appears: Non-toxic, Chronically Ill - Head Exam Head Exam: NORMOCEPHALIC - Eye Exam Eye Exam: PERRL - ENT Exam ENT Exam: Mucous Membranes Dry - Neck Exam Neck Exam: absent: Lymphadenopathy - Respiratory Exam Respiratory Exam: Decreased Breath Sounds - Cardiovascular Exam Cardiovascular Exam: REGULAR RHYTHM - GI/Abdominal Exam GI & Abdominal Exam: Distended, Soft. absent: Tenderness - Rectal Exam Rectal Exam: Deferred - Exam Exam: NORMAL INSPECTION Assessment and Plan (1) COPD exacerbation Status: Acute (2) Chr obstructive pulmonary disease w/ acute lower respiratory infxn Status: Acute (3) Hypoxia Status: Acute (4) Pneumonia Status: Acute - Assessment and Plan (Free Text) Assessment: ESBL + Proteus in sputum IV rx in progress
--- NOTE | 2017-11-18 19:52 | CP.PCM.PN ---
Objective - Vital Signs/Intake and Output Vital Signs (last 24 hours): Temp Pulse Resp BP Pulse Ox 98.3 F 65 18 154/81 H 98 11/18/17 18:53 11/18/17 18:53 11/18/17 18:53 11/18/17 18:53 11/18/17 18:53 Intake and Output: 11/18/17 11/19/17 18:59 06:59 Intake Total 200 Output Total 400 Balance -200 - Medications Medications: Current Medications Acetaminophen (Tylenol 325mg Tab) 650 mg PO Q4 PRN PRN Reason: Pain, Mild (1-3) Last Admin: 11/17/17 06:57 Dose: 650 mg Albuterol/Ipratropium (Duoneb 3 Mg/0.5 Mg (3 Ml) Ud) 3 ml INH RQ4 [facility] Last Admin: 11/18/17 19:45 Dose: 3 ml Chlordiazepoxide (Librium) 10 mg PO Q8 PRN PRN Reason: Anxiety Last Admin: 11/17/17 21:05 Dose: 10 mg Enoxaparin Sodium (Lovenox) 40 mg SC DAILY [facility] Last Admin: 11/18/17 09:16 Dose: 40 mg Gabapentin (Neurontin) 800 mg PO TID [facility] Last Admin: 11/18/17 17:58 Dose: 800 mg Guaifenesin (Robitussin) 200 mg PO Q4H PRN PRN Reason: Cough and congestion Last Admin: 11/18/17 15:07 Dose: 200 mg Vancomycin/Sodium Chloride (Vancomycin 1 Gm/Ns 200 Ml) 1 gm in 200 mls @ 133 mls/hr IVPB Q12H [facility] PRN Reason: Protocol Stop: 11/19/17 12:01 Last Admin: 11/18/17 11:58 Dose: 133 mls/hr Azithromycin 500 mg/ Sodium (Chloride) 250 mls @ 167 mls/hr IVPB Q24H [facility] PRN Reason: Protocol Last Admin: 11/18/17 13:30 Dose: 167 mls/hr Meropenem 1 gm/ Sodium (Chloride) 100 mls @ 100 mls/hr IVPB Q8H [facility] PRN Reason: Protocol Last Admin: 11/18/17 16:05 Dose: 100 mls/hr Insulin Aspart (Novolog) 0 unit SC ACHS [facility] PRN Reason: Protocol Last Admin: 11/18/17 16:09 Dose: 3 u Methylprednisolone (Solu-Medrol) 40 mg IVP Q8 [facility] Last Admin: 11/18/17 13:11 Dose: 40 mg Montelukast Sodium (Singulair) 10 mg PO HS [facility] Last Admin: 11/17/17 21:05 Dose: 10 mg Pantoprazole Sodium (Protonix Ec Tab) 40 mg PO DAILY [facility] Last Admin: 11/18/17 09:16 Dose: 40 mg Phenol/Menthol (Phenaseptic 1.4% Throat [place]) 0 ml MT Q2 PRN PRN Reason: Other Last Admin: 11/17/17 01:22 Dose: 1 sponge Quetiapine Fumarate (Seroquel Xr) 400 mg PO BID [facility] Last Admin: 11/18/17 17:58 Dose: 400 mg Saliva Substitute (First Magic Mouthwash) 5 ml PO Q4 [facility] Last Admin: 11/18/17 15:59 Dose: Not Given Sertraline HCl (Zoloft) 100 mg PO BID [facility] Last Admin: 11/18/17 17:58 Dose: 100 mg Trazodone HCl (Desyrel) 150 mg PO HS [facility] Last Admin: 11/17/17 21:47 Dose: 150 mg - Labs Labs: 11/18/17 05:37 11/18/17 05:37
[2017-11-19] MEDS: Mag&Al/Simet/Diphen/Lido 237 ML KIT PO SCH ×6 (00:05→19:59)
[2017-11-19] MEDS: Vancomycin 1 gm/NS 200 ml 1 GM/200 ML BAG IVPB SCH (00:05)
[2017-11-19] MEDS: Meropenem 1 GM in Sodium Chloride 0.9% 100 ML IVPB SCH ×3 (01:40→17:35)
[2017-11-19] MEDS: Albuterol-Ipratrop 3 mg / 0.5 (3 ml) UD INH SCH ×5 (01:46→19:58)
[2017-11-19 06:40] LABS: BASO % 0.1 % (0.0-2.0); HEMOGLOBIN 11.7 g/dL (11.0-16.0); LYMPH # 0.9 K/uL (1.0-4.3); LYMPH % 7.9 % (20.0-40.0); MEAN CELL VOLUME 77.5 fL (81.0-99.0); MEAN CORPUSCULAR HEMOGLOBIN 25.2 pg (27.0-31.0); MEAN CORPUSCULAR HGB CONC 32.5 g/dL (33.0-37.0); MEAN PLATELET VOLUME 8.8 fL (7.2-11.7); MONO # 0.6 K/uL (0.0-0.8); MONO % 5.2 % (0.0-10.0); NEUT # 10.3 K/uL (1.8-7.0); NEUT % 86.8 % (50.0-75.0); NRBC % 0.1 % (0.0-2.0); PLATELET COUNT 170 K/uL (130-400); RBC 4.64 Mil/uL (3.80-5.20); RED CELL DISTRIBUTION WIDTH 14.8 % (11.5-14.5); WHITE BLOOD COUNT 11.8 K/uL (4.8-10.8)
[2017-11-19] MEDS: MethylPREDNISolone 40 mg Vial IVP SCH ×3 (06:45→21:18)
[2017-11-19 06:57] LABS: ALB/GLOB RATIO 0.9 (1.0-2.1); ALBUMIN 3.7 g/dL (3.5-5.0); ALT/SGPT 21 U/L (9-52); AST/SGOT 18 U/L (14-36); BLOOD UREA NITROGEN 24 mg/dL (7-17); CALCIUM 9.2 mg/dl (8.6-10.4); GFR NON-AFRICAN AMERICAN > 60
[2017-11-19 07:51] LABS: LYMPHOCYTE 14 % (20-40); MONOCYTE 6 % (0-10); NEUTROPHIL 80 % (50-75); TOTAL CELLS COUNTED 100
[2017-11-19 07:53] LABS: ANISOCYTOSIS SLIGHT; HYPOCHROMIC SLIGHT; PLATELET ESTIMATE NORMAL (NORMAL)
[2017-11-19] MEDS: (Novolog) Insulin Aspart, Recombinant 100 u/ml 10 ml vial SC SCH ×4 (08:12→21:16)
[2017-11-19] MEDS: Pantoprazole 40 mg EC Tab PO SCH (10:24)
[2017-11-19] MEDS: Enoxaparin 40 mg Syringe SC SCH (10:24)
[2017-11-19] MEDS: QUEtiapine 200 mg XR Tab PO SCH ×2 (10:25→17:36)
--- NOTE | 2017-11-19 11:24 | CP.PCM.PN ---
Subjective - Date & Time of Evaluation Date of Evaluation: 11/19/17 Time of Evaluation: 07:00 - Subjective Subjective: sputum + Proteus MDRO IV Vanco d/c'd Objective - Vital Signs/Intake and Output Vital Signs (last 24 hours): Temp Pulse Resp BP Pulse Ox 98.6 F 69 21 143/75 98 11/19/17 08:00 11/19/17 08:00 11/19/17 08:00 11/19/17 08:00 11/19/17 08:00 Intake and Output: 11/19/17 11/19/17 06:59 18:59 Intake Total 350 Output Total 300 Balance 50 - Medications Medications: Current Medications Acetaminophen (Tylenol 325mg Tab) 650 mg PO Q4 PRN PRN Reason: Pain, Mild (1-3) Last Admin: 11/17/17 06:57 Dose: 650 mg Chlordiazepoxide (Librium) 10 mg PO Q8 PRN PRN Reason: Anxiety Last Admin: 11/19/17 02:40 Dose: 10 mg Enoxaparin Sodium (Lovenox) 40 mg SC DAILY [facility] Last Admin: 11/19/17 10:24 Dose: 40 mg Gabapentin (Neurontin) 800 mg PO TID [facility] Last Admin: 11/19/17 10:25 Dose: 800 mg Guaifenesin (Robitussin) 200 mg PO Q4H PRN PRN Reason: Cough and congestion Last Admin: 11/18/17 15:07 Dose: 200 mg Meropenem 1 gm/ Sodium (Chloride) 100 mls @ 100 mls/hr IVPB Q8H [facility] PRN Reason: Protocol Last Admin: 11/19/17 08:11 Dose: 100 mls/hr Azithromycin 500 mg/ Sodium (Chloride) 250 mls @ 167 mls/hr IVPB Q24H [facility] PRN Reason: Protocol Insulin Aspart (Novolog) 0 unit SC ACHS [facility] PRN Reason: Protocol Last Admin: 11/19/17 08:12 Dose: 4 units Methylprednisolone (Solu-Medrol) 40 mg IVP Q8 [facility] Last Admin: 11/19/17 06:45 Dose: 40 mg Montelukast Sodium (Singulair) 10 mg PO HS [facility] Last Admin: 11/18/17 21:43 Dose: 10 mg Pantoprazole Sodium (Protonix Ec Tab) 40 mg PO DAILY [facility] Last Admin: 11/19/17 10:24 Dose: 40 mg Phenol/Menthol (Phenaseptic 1.4% Throat [place]) 0 ml MT Q2 PRN PRN Reason: Other Last Admin: 11/17/17 01:22 Dose: 1 sponge Quetiapine Fumarate (Seroquel Xr) 400 mg PO BID [facility] Last Admin: 11/19/17 10:25 Dose: 400 mg Saliva Substitute (First Magic Mouthwash) 5 ml PO Q4 [facility] Last Admin: 11/19/17 08:23 Dose: 5 ml Sertraline HCl (Zoloft) 100 mg PO BID [facility] Last Admin: 11/19/17 10:26 Dose: 100 mg Trazodone HCl (Desyrel) 150 mg PO HS [facility] Last Admin: 11/18/17 21:43 Dose: 150 mg - Labs Labs: 11/19/17 06:29 11/19/17 06:29 - Constitutional Appears: Chronically Ill - Head Exam Head Exam: NORMOCEPHALIC - Eye Exam Eye Exam: absent: Scleral icterus - ENT Exam ENT Exam: Mucous Membranes Dry - Neck Exam Neck Exam: absent: Lymphadenopathy - Respiratory Exam Respiratory Exam: Decreased Breath Sounds - Cardiovascular Exam Cardiovascular Exam: REGULAR RHYTHM - GI/Abdominal Exam GI & Abdominal Exam: Distended - Rectal Exam Rectal Exam: Deferred - Exam Exam: NORMAL INSPECTION - Extremities Exam Extremities Exam: absent: Pedal Edema - Back Exam Back Exam: absent: CVA tenderness (L), CVA tenderness (R) Assessment and Plan (1) COPD exacerbation Status: Acute (2) Chr obstructive pulmonary disease w/ acute lower respiratory infxn Status: Acute (3) Hypoxia Status: Acute (4) Pneumonia Status: Acute - Assessment and Plan (Free Text) Assessment: sputum + Proteus MDRO IV Vanco d/c'd cont merrem
--- NOTE | 2017-11-19 14:57 | CP.PCM.PN ---
Subjective - Date & Time of Evaluation Date of Evaluation: 11/19/17 Objective - Vital Signs/Intake and Output Vital Signs (last 24 hours): Temp Pulse Resp BP Pulse Ox 98.6 F 69 21 143/75 98 11/19/17 08:00 11/19/17 08:00 11/19/17 08:00 11/19/17 08:00 11/19/17 08:00 Intake and Output: 11/19/17 11/19/17 06:59 18:59 Intake Total 350 Output Total 300 Balance 50 - Medications Medications: Current Medications Acetaminophen (Tylenol 325mg Tab) 650 mg PO Q4 PRN PRN Reason: Pain, Mild (1-3) Last Admin: 11/17/17 06:57 Dose: 650 mg Albuterol/Ipratropium (Duoneb 3 Mg/0.5 Mg (3 Ml) Ud) 3 ml INH RQ4 [facility] Last Admin: 11/19/17 13:18 Dose: 3 ml Chlordiazepoxide (Librium) 10 mg PO Q8 PRN PRN Reason: Anxiety Last Admin: 11/19/17 02:40 Dose: 10 mg Enoxaparin Sodium (Lovenox) 40 mg SC DAILY [facility] Last Admin: 11/19/17 10:24 Dose: 40 mg Gabapentin (Neurontin) 800 mg PO TID [facility] Last Admin: 11/19/17 14:15 Dose: 800 mg Guaifenesin (Robitussin) 200 mg PO Q4H PRN PRN Reason: Cough and congestion Last Admin: 11/18/17 15:07 Dose: 200 mg Meropenem 1 gm/ Sodium (Chloride) 100 mls @ 100 mls/hr IVPB Q8H [facility] PRN Reason: Protocol Last Admin: 11/19/17 08:11 Dose: 100 mls/hr Azithromycin 500 mg/ Sodium (Chloride) 250 mls @ 167 mls/hr IVPB Q24H [facility] PRN Reason: Protocol Insulin Aspart (Novolog) 0 unit SC ACHS [facility] PRN Reason: Protocol Last Admin: 11/19/17 12:28 Dose: 6 units Methylprednisolone (Solu-Medrol) 40 mg IVP Q8 [facility] Last Admin: 11/19/17 14:15 Dose: 40 mg Montelukast Sodium (Singulair) 10 mg PO HS [facility] Last Admin: 11/18/17 21:43 Dose: 10 mg Pantoprazole Sodium (Protonix Ec Tab) 40 mg PO DAILY [facility] Last Admin: 11/19/17 10:24 Dose: 40 mg Phenol/Menthol (Phenaseptic 1.4% Throat [place]) 0 ml MT Q2 PRN PRN Reason: Other Last Admin: 11/17/17 01:22 Dose: 1 sponge Quetiapine Fumarate (Seroquel Xr) 400 mg PO BID [facility] Last Admin: 11/19/17 10:25 Dose: 400 mg Saliva Substitute (First Magic Mouthwash) 5 ml PO Q4 [facility] Last Admin: 11/19/17 12:31 Dose: 5 ml Sertraline HCl (Zoloft) 100 mg PO BID [facility] Last Admin: 11/19/17 10:26 Dose: 100 mg Trazodone HCl (Desyrel) 150 mg PO HS [facility] Last Admin: 11/18/17 21:43 Dose: 150 mg - Labs Labs: 11/19/17 06:29 11/19/17 06:29
--- NOTE | 2017-11-19 15:10 | CP.PCM.PN ---
Subjective - Date & Time of Evaluation Date of Evaluation: 11/19/17 Time of Evaluation: 11:15 - Subjective Subjective: patient seen and examined On trach collar Slight cough Afebrile Less secretions Objective - Vital Signs/Intake and Output Vital Signs (last 24 hours): Temp Pulse Resp BP Pulse Ox 98.6 F 69 21 143/75 98 11/19/17 08:00 11/19/17 08:00 11/19/17 08:00 11/19/17 08:00 11/19/17 08:00 Intake and Output: 11/19/17 11/19/17 06:59 18:59 Intake Total 350 Output Total 300 Balance 50 - Medications Medications: Current Medications Acetaminophen (Tylenol 325mg Tab) 650 mg PO Q4 PRN PRN Reason: Pain, Mild (1-3) Last Admin: 11/17/17 06:57 Dose: 650 mg Albuterol/Ipratropium (Duoneb 3 Mg/0.5 Mg (3 Ml) Ud) 3 ml INH RQ4 [facility] Last Admin: 11/19/17 13:18 Dose: 3 ml Chlordiazepoxide (Librium) 10 mg PO Q8 PRN PRN Reason: Anxiety Last Admin: 11/19/17 14:57 Dose: 10 mg Enoxaparin Sodium (Lovenox) 40 mg SC DAILY [facility] Last Admin: 11/19/17 10:24 Dose: 40 mg Gabapentin (Neurontin) 800 mg PO TID [facility] Last Admin: 11/19/17 14:15 Dose: 800 mg Guaifenesin (Robitussin) 200 mg PO Q4H PRN PRN Reason: Cough and congestion Last Admin: 11/18/17 15:07 Dose: 200 mg Meropenem 1 gm/ Sodium (Chloride) 100 mls @ 100 mls/hr IVPB Q8H [facility] PRN Reason: Protocol Last Admin: 11/19/17 08:11 Dose: 100 mls/hr Azithromycin 500 mg/ Sodium (Chloride) 250 mls @ 167 mls/hr IVPB Q24H [facility] PRN Reason: Protocol Insulin Aspart (Novolog) 0 unit SC ACHS [facility] PRN Reason: Protocol Last Admin: 11/19/17 12:28 Dose: 6 units Methylprednisolone (Solu-Medrol) 40 mg IVP Q8 [facility] Last Admin: 11/19/17 14:15 Dose: 40 mg Montelukast Sodium (Singulair) 10 mg PO HS [facility] Last Admin: 11/18/17 21:43 Dose: 10 mg Pantoprazole Sodium (Protonix Ec Tab) 40 mg PO DAILY [facility] Last Admin: 11/19/17 10:24 Dose: 40 mg Phenol/Menthol (Phenaseptic 1.4% Throat [place]) 0 ml MT Q2 PRN PRN Reason: Other Last Admin: 11/17/17 01:22 Dose: 1 sponge Quetiapine Fumarate (Seroquel Xr) 400 mg PO BID [facility] Last Admin: 11/19/17 10:25 Dose: 400 mg Saliva Substitute (First Magic Mouthwash) 5 ml PO Q4 [facility] Last Admin: 11/19/17 12:31 Dose: 5 ml Sertraline HCl (Zoloft) 100 mg PO BID [facility] Last Admin: 11/19/17 10:26 Dose: 100 mg Trazodone HCl (Desyrel) 150 mg PO [facility] Last Admin: 11/18/17 21:43 Dose: 150 mg - Labs Labs: 11/19/17 06:29 11/19/17 06:29 - Head Exam Head Exam: ATRAUMATIC, NORMOCEPHALIC - Eye Exam Eye Exam: Normal appearance - ENT Exam ENT Exam: Mucous Membranes Moist - Neck Exam Neck Exam: Normal Inspection - Respiratory Exam Respiratory Exam: Rales, Rhonchi - Cardiovascular Exam Cardiovascular Exam: REGULAR RHYTHM Assessment and Plan (1) Pneumonia Assessment & Plan: continue IV antibiotics Trach collar Nebulizer treatment iV steroids Followup chest x-ray and ABG Status: Acute (2) COPD exacerbation Status: Acute (3) Tracheostomy dependence Status: Acute
[2017-11-19] MEDS: Azithromycin 500 MG in Sodium Chloride 0.9% 250 ML IVPB SCH (15:35)
--- NOTE | 2017-11-19 18:21 | CARD ---
APPROVED REPORT Date of service: 11/16/2017 EKG Measurement Heart [id number] <Conclusion> Sinus tachycardia Otherwise normal ECG
[2017-11-19] MEDS: guaiFENesin 100 mg/5 ml Syrup UD PO SCH (22:07)
--- NOTE | 2017-11-19 22:41 | CP.PCM.PN ---
Objective - Vital Signs/Intake and Output Vital Signs (last 24 hours): Temp Pulse Resp BP Pulse Ox 98.2 F 70 22 99/48 L 95 11/19/17 12:00 11/19/17 12:00 11/19/17 12:00 11/19/17 12:00 11/19/17 12:00 Intake and Output: 11/19/17 11/20/17 18:59 06:59 Intake Total 300 Balance 300 - Medications Medications: Current Medications Acetaminophen (Tylenol 325mg Tab) 650 mg PO Q4 PRN PRN Reason: Pain, Mild (1-3) Last Admin: 11/17/17 06:57 Dose: 650 mg Albuterol/Ipratropium (Duoneb 3 Mg/0.5 Mg (3 Ml) Ud) 3 ml INH RQ4 [facility] Last Admin: 11/19/17 19:58 Dose: 3 ml Chlordiazepoxide (Librium) 10 mg PO Q8 PRN PRN Reason: Anxiety Last Admin: 11/19/17 14:57 Dose: 10 mg Enoxaparin Sodium (Lovenox) 40 mg SC DAILY [facility] Last Admin: 11/19/17 10:24 Dose: 40 mg Gabapentin (Neurontin) 800 mg PO TID [facility] Last Admin: 11/19/17 17:35 Dose: 800 mg Guaifenesin (Robitussin) 200 mg PO Q4H [facility] Last Admin: 11/19/17 22:07 Dose: 200 mg Meropenem 1 gm/ Sodium (Chloride) 100 mls @ 100 mls/hr IVPB Q8H [facility] PRN Reason: Protocol Last Admin: 11/19/17 17:35 Dose: 100 mls/hr Azithromycin 500 mg/ Sodium (Chloride) 250 mls @ 167 mls/hr IVPB Q24H [facility] PRN Reason: Protocol Last Admin: 11/19/17 15:35 Dose: 167 mls/hr Insulin Aspart (Novolog) 0 unit SC ACHS [facility] PRN Reason: Protocol Last Admin: 11/19/17 21:16 Dose: Not Given Methylprednisolone (Solu-Medrol) 40 mg IVP Q8 [facility] Last Admin: 11/19/17 21:18 Dose: 40 mg Montelukast Sodium (Singulair) 10 mg PO HS [facility] Last Admin: 11/19/17 21:18 Dose: 10 mg Pantoprazole Sodium (Protonix Ec Tab) 40 mg PO DAILY [facility] Last Admin: 11/19/17 10:24 Dose: 40 mg Phenol/Menthol (Phenaseptic 1.4% Throat [place]) 0 ml MT Q2 PRN PRN Reason: Other Last Admin: 11/17/17 01:22 Dose: 1 sponge Quetiapine Fumarate (Seroquel Xr) 400 mg PO BID [facility] Last Admin: 11/19/17 17:36 Dose: 400 mg Saliva Substitute (First Magic Mouthwash) 5 ml PO Q4 [facility] Last Admin: 11/19/17 19:59 Dose: 5 ml Sertraline HCl (Zoloft) 100 mg PO BID [facility] Last Admin: 11/19/17 17:36 Dose: 100 mg Trazodone HCl (Desyrel) 150 mg PO HS [facility] Last Admin: 11/19/17 21:18 Dose: 150 mg - Labs Labs: 11/19/17 06:29 11/19/17 06:29
[2017-11-20] MEDS: Mag&Al/Simet/Diphen/Lido 237 ML KIT PO SCH ×7 (00:39→19:31)
[2017-11-20] MEDS: Meropenem 1 GM in Sodium Chloride 0.9% 100 ML IVPB SCH ×3 (00:45→17:10)
[2017-11-20] MEDS: Albuterol-Ipratrop 3 mg / 0.5 (3 ml) UD INH SCH ×5 (00:45→19:39)
[2017-11-20] MEDS: guaiFENesin 100 mg/5 ml Syrup UD PO SCH ×6 (01:45→21:31)
[2017-11-20] MEDS: MethylPREDNISolone 40 mg Vial IVP SCH ×3 (06:02→21:31)
[2017-11-20] MEDS: (Novolog) Insulin Aspart, Recombinant 100 u/ml 10 ml vial SC SCH ×4 (08:00→21:32)
[2017-11-20] MEDS: Enoxaparin 40 mg Syringe SC SCH (09:00)
[2017-11-20] MEDS: QUEtiapine 200 mg XR Tab PO SCH ×2 (09:00→18:11)
[2017-11-20] MEDS: Pantoprazole 40 mg EC Tab PO SCH (09:00)
--- NOTE | 2017-11-20 12:45 | PN ---
DATE: 11/19/2017 SUBJECTIVE: The patient is less short of breath, less cough, less wheezing. She is lot more comfortable. PHYSICAL EXAMINATION: VITAL SIGNS: BP 99/48, pulse 70, respiratory rate 22, temperature 98.2. LUNGS: Decreased air entry, possible rhonchi. CVS: S1 and S2 regular. ABDOMEN: Soft. ASSESSMENT: 1. Acute tracheobronchitis. 2. Exacerbation of bronchial asthma. 3. Type 2 diabetes. 4. Morbid obesity. 5. Tracheostomy. The patient has cardiomegaly with no evidence of pulmonary infiltrate. The patient had a CT of the chest done on 11/14/2017, which is negative for pulmonary embolism, but she has multifocal infiltrate. She has some mild mediastinal lymphadenopathy and the patient is stable. PLAN: Continue antibiotics oxygen. Monitor the patient. Ad Khan MD
[2017-11-20] MEDS: Azithromycin 500 MG in Sodium Chloride 0.9% 250 ML IVPB SCH (14:03)
[2017-11-21] MEDS: Meropenem 1 GM in Sodium Chloride 0.9% 100 ML IVPB SCH ×3 (00:19→17:53)
[2017-11-21] MEDS: Mag&Al/Simet/Diphen/Lido 237 ML KIT PO SCH ×6 (00:25→21:00)
[2017-11-21] MEDS: Albuterol-Ipratrop 3 mg / 0.5 (3 ml) UD INH SCH ×7 (00:57→23:48)
[2017-11-21] MEDS: guaiFENesin 100 mg/5 ml Syrup UD PO SCH ×6 (01:44→22:10)
[2017-11-21] MEDS: MethylPREDNISolone 40 mg Vial IVP SCH ×3 (05:46→22:10)
[2017-11-21] MEDS: (Novolog) Insulin Aspart, Recombinant 100 u/ml 10 ml vial SC SCH ×4 (08:30→22:12)
[2017-11-21] MEDS: QUEtiapine 200 mg XR Tab PO SCH ×2 (09:53→17:52)
[2017-11-21] MEDS: Enoxaparin 40 mg Syringe SC SCH (09:56)
[2017-11-21] MEDS: Pantoprazole 40 mg EC Tab PO SCH (09:57)
--- NOTE | 2017-11-21 12:28 | CP.PCM.PN ---
Subjective - Date & Time of Evaluation Date of Evaluation: 11/21/17 Time of Evaluation: 08:00 - Subjective Subjective: no fever iv rx renewed Objective - Vital Signs/Intake and Output Vital Signs (last 24 hours): Temp Pulse Resp BP Pulse Ox 98.5 F 65 20 137/86 96 11/21/17 07:42 11/21/17 07:42 11/21/17 07:42 11/21/17 07:42 11/21/17 07:42 Intake and Output: 11/21/17 11/21/17 06:59 18:59 Intake Total 425 Output Total 1000 Balance -575 - Medications Medications: Current Medications Acetaminophen (Tylenol 325mg Tab) 650 mg PO Q4 PRN PRN Reason: Pain, Mild (1-3) Last Admin: 11/17/17 06:57 Dose: 650 mg Albuterol/Ipratropium (Duoneb 3 Mg/0.5 Mg (3 Ml) Ud) 3 ml INH RQ4 [facility] Last Admin: 11/21/17 07:38 Dose: 3 ml Chlordiazepoxide (Librium) 10 mg PO Q8 PRN PRN Reason: Anxiety Last Admin: 11/20/17 18:48 Dose: 10 mg Enoxaparin Sodium (Lovenox) 40 mg SC DAILY [facility] Last Admin: 11/21/17 09:56 Dose: 40 mg Gabapentin (Neurontin) 800 mg PO TID [facility] Last Admin: 11/21/17 09:53 Dose: 800 mg Guaifenesin (Robitussin) 200 mg PO Q4H [facility] Last Admin: 11/21/17 09:56 Dose: 200 mg Meropenem 1 gm/ Sodium (Chloride) 100 mls @ 100 mls/hr IVPB Q8H [facility]; Protocol Last Admin: 11/21/17 08:35 Dose: 100 mls/hr Azithromycin 500 mg/ Sodium (Chloride) 250 mls @ 167 mls/hr IVPB Q24H [facility]; Protocol Last Admin: 11/20/17 14:03 Dose: 167 mls/hr Insulin Aspart (Novolog) 0 unit SC ACHS [facility]; Protocol Last Admin: 11/21/17 12:14 Dose: 6 units Methylprednisolone (Solu-Medrol) 40 mg IVP Q8 [facility] Last Admin: 11/21/17 05:46 Dose: 40 mg Montelukast Sodium (Singulair) 10 mg PO HS [facility] Last Admin: 11/20/17 21:31 Dose: 10 mg Pantoprazole Sodium (Protonix Ec Tab) 40 mg PO DAILY [facility] Last Admin: 11/21/17 09:57 Dose: 40 mg Phenol/Menthol (Phenaseptic 1.4% Throat [place]) 0 ml MT Q2 PRN PRN Reason: Other Last Admin: 11/17/17 01:22 Dose: 1 sponge Quetiapine Fumarate (Seroquel Xr) 400 mg PO BID [facility] Last Admin: 11/21/17 09:53 Dose: 400 mg Saliva Substitute (First Magic Mouthwash) 5 ml PO Q4 [facility] Last Admin: 11/21/17 12:14 Dose: 5 ml Sertraline HCl (Zoloft) 100 mg PO BID [facility] Last Admin: 11/21/17 09:53 Dose: 100 mg Trazodone HCl (Desyrel) 150 mg PO HS [facility] Last Admin: 11/20/17 21:31 Dose: 150 mg - Labs Labs: 11/19/17 06:29 11/19/17 06:29 - Constitutional Appears: Non-toxic, Chronically Ill - Head Exam Head Exam: NORMOCEPHALIC - Eye Exam Eye Exam: PERRL - ENT Exam ENT Exam: Mucous Membranes Dry - Neck Exam Neck Exam: absent: Lymphadenopathy - Respiratory Exam Respiratory Exam: Decreased Breath Sounds - Cardiovascular Exam Cardiovascular Exam: REGULAR RHYTHM - GI/Abdominal Exam GI & Abdominal Exam: Distended, Soft - Rectal Exam Rectal Exam: Deferred - Exam Exam: NORMAL INSPECTION Assessment and Plan (1) COPD exacerbation Status: Acute (2) Chr obstructive pulmonary disease w/ acute lower respiratory infxn Status: Acute (3) Hypoxia Status: Acute (4) Pneumonia Status: Acute - Assessment and Plan (Free Text) Assessment: cont IV antibiotics on discharge
[2017-11-21] MEDS: Azithromycin 500 MG in Sodium Chloride 0.9% 250 ML IVPB SCH (14:18)
--- NOTE | 2017-11-21 16:23 | CP.PCM.PN ---
Subjective - Date & Time of Evaluation Date of Evaluation: 11/21/17 Time of Evaluation: 10:00 - Subjective Subjective: Patient seen and examined Tolerating trach collar Less cough Afebrile Continue antibiotics Follow-up chest x-ray Objective - Vital Signs/Intake and Output Vital Signs (last 24 hours): Temp Pulse Resp BP Pulse Ox 98.5 F 65 20 137/86 96 11/21/17 07:42 11/21/17 07:42 11/21/17 07:42 11/21/17 07:42 11/21/17 07:42 Intake and Output: 11/21/17 11/21/17 06:59 18:59 Intake Total 425 600 Output Total 1000 500 Balance -575 100 - Medications Medications: Current Medications Acetaminophen (Tylenol 325mg Tab) 650 mg PO Q4 PRN PRN Reason: Pain, Mild (1-3) Last Admin: 11/17/17 06:57 Dose: 650 mg Albuterol/Ipratropium (Duoneb 3 Mg/0.5 Mg (3 Ml) Ud) 3 ml INH RQ4 [facility] Last Admin: 11/21/17 16:02 Dose: 3 ml Chlordiazepoxide (Librium) 10 mg PO Q8 PRN PRN Reason: Anxiety Last Admin: 11/20/17 18:48 Dose: 10 mg Enoxaparin Sodium (Lovenox) 40 mg SC DAILY [facility] Last Admin: 11/21/17 09:56 Dose: 40 mg Gabapentin (Neurontin) 800 mg PO TID [facility] Last Admin: 11/21/17 14:18 Dose: 800 mg Guaifenesin (Robitussin) 200 mg PO Q4H [facility] Last Admin: 11/21/17 14:18 Dose: 200 mg Meropenem 1 gm/ Sodium (Chloride) 100 mls @ 100 mls/hr IVPB Q8H [facility]; Protocol Last Admin: 11/21/17 08:35 Dose: 100 mls/hr Azithromycin 500 mg/ Sodium (Chloride) 250 mls @ 167 mls/hr IVPB Q24H [facility]; Protocol Last Admin: 11/21/17 14:18 Dose: 167 mls/hr Insulin Aspart (Novolog) 0 unit SC ACHS [facility]; Protocol Last Admin: 11/21/17 12:14 Dose: 6 units Methylprednisolone (Solu-Medrol) 40 mg IVP Q8 [facility] Last Admin: 11/21/17 14:18 Dose: 40 mg Montelukast Sodium (Singulair) 10 mg PO HS [facility] Last Admin: 11/20/17 21:31 Dose: 10 mg Pantoprazole Sodium (Protonix Ec Tab) 40 mg PO DAILY [facility] Last Admin: 11/21/17 09:57 Dose: 40 mg Phenol/Menthol (Phenaseptic 1.4% Throat [place]) 0 ml MT Q2 PRN PRN Reason: Other Last Admin: 11/17/17 01:22 Dose: 1 sponge Quetiapine Fumarate (Seroquel Xr) 400 mg PO BID [facility] Last Admin: 11/21/17 09:53 Dose: 400 mg Saliva Substitute (First Magic Mouthwash) 5 ml PO Q4 [facility] Last Admin: 11/21/17 12:14 Dose: 5 ml Sertraline HCl (Zoloft) 100 mg PO BID [facility] Last Admin: 11/21/17 09:53 Dose: 100 mg Trazodone HCl (Desyrel) 150 mg PO [facility] Last Admin: 11/20/17 21:31 Dose: 150 mg - Labs Labs: 11/19/17 06:29 11/19/17 06:29 Assessment and Plan (1) Pneumonia Status: Acute (2) COPD exacerbation Status: Acute (3) Tracheostomy dependence Status: Acute
--- NOTE | 2017-11-21 21:36 | CP.PCM.PN ---
Subjective - Date & Time of Evaluation Date of Evaluation: 11/21/17 Time of Evaluation: 09:10 - Subjective Subjective: Patient seen and evaluated Imroved breathibg COPD HTN Diastolic CHF Medical management Objective - Vital Signs/Intake and Output Vital Signs (last 24 hours): Temp Pulse Resp BP Pulse Ox 98 F 81 20 139/80 97 11/21/17 16:00 11/21/17 16:00 11/21/17 16:00 11/21/17 16:00 11/21/17 16:00 Intake and Output: 11/21/17 11/22/17 18:59 06:59 Intake Total 600 Output Total 500 Balance 100 - Medications Medications: Current Medications Acetaminophen (Tylenol 325mg Tab) 650 mg PO Q4 PRN PRN Reason: Pain, Mild (1-3) Last Admin: 11/17/17 06:57 Dose: 650 mg Albuterol/Ipratropium (Duoneb 3 Mg/0.5 Mg (3 Ml) Ud) 3 ml INH RQ4 [facility] Last Admin: 11/21/17 19:15 Dose: 3 ml Chlordiazepoxide (Librium) 10 mg PO Q8 PRN PRN Reason: Anxiety Last Admin: 11/20/17 18:48 Dose: 10 mg Enoxaparin Sodium (Lovenox) 40 mg SC DAILY [facility] Last Admin: 11/21/17 09:56 Dose: 40 mg Gabapentin (Neurontin) 800 mg PO TID [facility] Last Admin: 11/21/17 17:52 Dose: 800 mg Guaifenesin (Robitussin) 200 mg PO Q4H [facility] Last Admin: 11/21/17 17:54 Dose: 200 mg Meropenem 1 gm/ Sodium (Chloride) 100 mls @ 100 mls/hr IVPB Q8H [facility]; Protocol Last Admin: 11/21/17 17:53 Dose: 100 mls/hr Azithromycin 500 mg/ Sodium (Chloride) 250 mls @ 167 mls/hr IVPB Q24H [facility]; Protocol Last Admin: 11/21/17 14:18 Dose: 167 mls/hr Insulin Aspart (Novolog) 0 unit SC ACHS [facility]; Protocol Last Admin: 11/21/17 17:30 Dose: 4 units Methylprednisolone (Solu-Medrol) 40 mg IVP Q8 [facility] Last Admin: 11/21/17 14:18 Dose: 40 mg Montelukast Sodium (Singulair) 10 mg PO HS [facility] Last Admin: 11/20/17 21:31 Dose: 10 mg Pantoprazole Sodium (Protonix Ec Tab) 40 mg PO DAILY [facility] Last Admin: 11/21/17 09:57 Dose: 40 mg Phenol/Menthol (Phenaseptic 1.4% Throat [place]) 0 ml MT Q2 PRN PRN Reason: Other Last Admin: 11/17/17 01:22 Dose: 1 sponge Quetiapine Fumarate (Seroquel Xr) 400 mg PO BID [facility] Last Admin: 11/21/17 17:52 Dose: 400 mg Saliva Substitute (First Magic Mouthwash) 5 ml PO Q4 [facility] Last Admin: 11/21/17 17:49 Dose: 5 ml Sertraline HCl (Zoloft) 100 mg PO BID [facility] Last Admin: 11/21/17 17:52 Dose: 100 mg Trazodone HCl (Desyrel) 150 mg PO [facility] Last Admin: 11/20/17 21:31 Dose: 150 mg - Labs Labs: 11/19/17 06:29 11/19/17 06:29
--- NOTE | 2017-11-21 22:05 | CP.PCM.PN ---
Objective - Vital Signs/Intake and Output Vital Signs (last 24 hours): Temp Pulse Resp BP Pulse Ox 98 F 81 20 139/80 97 11/21/17 16:00 11/21/17 16:00 11/21/17 16:00 11/21/17 16:00 11/21/17 16:00 Intake and Output: 11/21/17 11/22/17 18:59 06:59 Intake Total 600 Output Total 500 Balance 100 - Medications Medications: Current Medications Acetaminophen (Tylenol 325mg Tab) 650 mg PO Q4 PRN PRN Reason: Pain, Mild (1-3) Last Admin: 11/17/17 06:57 Dose: 650 mg Albuterol/Ipratropium (Duoneb 3 Mg/0.5 Mg (3 Ml) Ud) 3 ml INH RQ4 [facility] Last Admin: 11/21/17 19:15 Dose: 3 ml Chlordiazepoxide (Librium) 10 mg PO Q8 PRN PRN Reason: Anxiety Last Admin: 11/20/17 18:48 Dose: 10 mg Enoxaparin Sodium (Lovenox) 40 mg SC DAILY [facility] Last Admin: 11/21/17 09:56 Dose: 40 mg Gabapentin (Neurontin) 800 mg PO TID [facility] Last Admin: 11/21/17 17:52 Dose: 800 mg Guaifenesin (Robitussin) 200 mg PO Q4H [facility] Last Admin: 11/21/17 17:54 Dose: 200 mg Meropenem 1 gm/ Sodium (Chloride) 100 mls @ 100 mls/hr IVPB Q8H [facility]; Protocol Last Admin: 11/21/17 17:53 Dose: 100 mls/hr Azithromycin 500 mg/ Sodium (Chloride) 250 mls @ 167 mls/hr IVPB Q24H [facility]; Protocol Last Admin: 11/21/17 14:18 Dose: 167 mls/hr Insulin Aspart (Novolog) 0 unit SC ACHS [facility]; Protocol Last Admin: 11/21/17 17:30 Dose: 4 units Methylprednisolone (Solu-Medrol) 40 mg IVP Q8 [facility] Last Admin: 11/21/17 14:18 Dose: 40 mg Montelukast Sodium (Singulair) 10 mg PO HS [facility] Last Admin: 11/20/17 21:31 Dose: 10 mg Pantoprazole Sodium (Protonix Ec Tab) 40 mg PO DAILY [facility] Last Admin: 11/21/17 09:57 Dose: 40 mg Phenol/Menthol (Phenaseptic 1.4% Throat [place]) 0 ml MT Q2 PRN PRN Reason: Other Last Admin: 11/17/17 01:22 Dose: 1 sponge Quetiapine Fumarate (Seroquel Xr) 400 mg PO BID [facility] Last Admin: 11/21/17 17:52 Dose: 400 mg Saliva Substitute (First Magic Mouthwash) 5 ml PO Q4 [facility] Last Admin: 11/21/17 17:49 Dose: 5 ml Sertraline HCl (Zoloft) 100 mg PO BID [facility] Last Admin: 11/21/17 17:52 Dose: 100 mg Trazodone HCl (Desyrel) 150 mg PO HS [facility] Last Admin: 11/20/17 21:31 Dose: 150 mg - Labs Labs: 11/19/17 06:29 11/19/17 06:29
[2017-11-22] MEDS: Meropenem 1 GM in Sodium Chloride 0.9% 100 ML IVPB SCH ×3 (00:21→16:25)
[2017-11-22] MEDS: Mag&Al/Simet/Diphen/Lido 237 ML KIT PO SCH ×6 (00:22→20:40)
[2017-11-22] MEDS: guaiFENesin 100 mg/5 ml Syrup UD PO SCH ×6 (02:03→21:57)
[2017-11-22] MEDS: Albuterol-Ipratrop 3 mg / 0.5 (3 ml) UD INH SCH ×6 (04:26→23:58)
[2017-11-22] MEDS: MethylPREDNISolone 40 mg Vial IVP SCH ×2 (05:19→21:47)
--- NOTE | 2017-11-22 07:15 | PN ---
DATE: 11/21/2017 SUBJECTIVE: The patient has less cough, less shortness of breath, less wheezing. She is afebrile. She is more comfortable. Sputum culture is growing Proteus mirabilis which is sensitive to ertapenem, meropenem, and Zosyn. She is afebrile. . PHYSICAL EXAMINATION: VITAL SIGNS: BP 131/80, pulse 81, respiratory rate 20, temperature 98. LUNGS: Bilaterally decreased air entry. Positive rhonchi. CVS: S1 and S2, regular. ABDOMEN: Soft, nontender. Bowel sounds are positive. ASSESSMENT: 1. Tracheobronchitis, rule out pneumonia. 2. Hypertension. 3. Diabetes. 4. Anxiety and depression. PLAN: Continue current medication. Monitor the patient. Ad Khan MD
[2017-11-22] MEDS: (Novolog) Insulin Aspart, Recombinant 100 u/ml 10 ml vial SC SCH ×4 (08:27→21:59)
[2017-11-22] MEDS: Enoxaparin 40 mg Syringe SC SCH (09:28)
[2017-11-22] MEDS: Pantoprazole 40 mg EC Tab PO SCH (09:29)
[2017-11-22] MEDS: QUEtiapine 200 mg XR Tab PO SCH ×2 (09:29→18:01)
[2017-11-22 11:25] LABS: EOS % 0.1 % (0.0-4.0); LYMPH # 0.7 K/uL (1.0-4.3); MEAN CELL VOLUME 78.6 fL (81.0-99.0); MONO # 0.5 K/uL (0.0-0.8); NEUT % 90.3 % (50.0-75.0)
[2017-11-22 11:33] LABS: BASO # 0.1 K/uL (0.0-0.2); BASO % 0.5 % (0.0-2.0); HEMOGLOBIN 11.3 g/dL (11.0-16.0); LYMPH % 5.4 % (20.0-40.0); MEAN CORPUSCULAR HEMOGLOBIN 25.5 pg (27.0-31.0); MEAN CORPUSCULAR HGB CONC 32.5 g/dL (33.0-37.0); MEAN PLATELET VOLUME 8.8 fL (7.2-11.7); MONO % 3.7 % (0.0-10.0); NEUT # 11.7 K/uL (1.8-7.0); NRBC % 0.1 % (0.0-2.0); PLATELET COUNT 122 K/uL (130-400); RBC 4.41 Mil/uL (3.80-5.20); RED CELL DISTRIBUTION WIDTH 15.5 % (11.5-14.5); WHITE BLOOD COUNT 12.9 K/uL (4.8-10.8)
[2017-11-22 11:51] LABS: BLOOD UREA NITROGEN 24 mg/dL (7-17); CALCIUM 8.8 mg/dl (8.6-10.4); GFR NON-AFRICAN AMERICAN > 60
[2017-11-22 12:01] LABS: LYMPHOCYTE 3 % (20-40); MONOCYTE 5 % (0-10); NEUTROPHIL 92 % (50-75); TOTAL CELLS COUNTED 100
[2017-11-22 12:04] LABS: ANISOCYTOSIS SLIGHT; PLATELET ESTIMATE SLIGHTLY DECREASED (NORMAL)
[2017-11-22 12:05] LABS: HYPOCHROMIC SLIGHT; POLYCHROMIC SLIGHT
--- NOTE | 2017-11-22 12:14 | CP.PCM.PN ---
Subjective - Date & Time of Evaluation Date of Evaluation: 11/22/17 Time of Evaluation: 08:00 - Subjective Subjective: patient seen and examined still complaining of cough Afebrile Patient is awake and responsi Objective - Vital Signs/Intake and Output Vital Signs (last 24 hours): Temp Pulse Resp BP Pulse Ox 97.4 F L 80 20 149/87 97 11/22/17 08:00 11/22/17 08:00 11/22/17 08:00 11/22/17 08:00 11/22/17 08:00 Intake and Output: 11/22/17 11/22/17 06:59 18:59 Intake Total 320 Output Total 1050 Balance -730 - Medications Medications: Current Medications Acetaminophen (Tylenol 325mg Tab) 650 mg PO Q4 PRN PRN Reason: Pain, Mild (1-3) Last Admin: 11/17/17 06:57 Dose: 650 mg Albuterol/Ipratropium (Duoneb 3 Mg/0.5 Mg (3 Ml) Ud) 3 ml INH RQ4 [facility] Last Admin: 11/22/17 07:48 Dose: 3 ml Chlordiazepoxide (Librium) 10 mg PO Q8 PRN PRN Reason: Anxiety Last Admin: 11/22/17 09:41 Dose: 10 mg Enoxaparin Sodium (Lovenox) 40 mg SC DAILY [facility] Last Admin: 11/22/17 09:28 Dose: 40 mg Gabapentin (Neurontin) 800 mg PO TID [facility] Last Admin: 11/22/17 09:29 Dose: 800 mg Guaifenesin (Robitussin) 200 mg PO Q4H [facility] Last Admin: 11/22/17 09:27 Dose: 200 mg Meropenem 1 gm/ Sodium (Chloride) 100 mls @ 100 mls/hr IVPB Q8H [facility]; Protocol Last Admin: 11/22/17 08:28 Dose: 100 mls/hr Azithromycin 500 mg/ Sodium (Chloride) 250 mls @ 167 mls/hr IVPB Q24H [facility]; Protocol Last Admin: 11/21/17 14:18 Dose: 167 mls/hr Insulin Aspart (Novolog) 0 unit SC ACHS [facility]; Protocol Last Admin: 11/22/17 11:52 Dose: 10 units Methylprednisolone (Solu-Medrol) 40 mg IVP Q8 [facility] Last Admin: 11/22/17 05:19 Dose: 40 mg Montelukast Sodium (Singulair) 10 mg PO HS [facility] Last Admin: 11/21/17 22:11 Dose: 10 mg Pantoprazole Sodium (Protonix Ec Tab) 40 mg PO DAILY [facility] Last Admin: 11/22/17 09:29 Dose: 40 mg Phenol/Menthol (Phenaseptic 1.4% Throat [place]) 0 ml MT Q2 PRN PRN Reason: Other Last Admin: 11/17/17 01:22 Dose: 1 sponge Quetiapine Fumarate (Seroquel Xr) 400 mg PO BID [facility] Last Admin: 11/22/17 09:29 Dose: 400 mg Saliva Substitute (First Magic Mouthwash) 5 ml PO Q4 [facility] Last Admin: 11/22/17 11:53 Dose: 5 ml Sertraline HCl (Zoloft) 100 mg PO BID [facility] Last Admin: 11/22/17 09:29 Dose: 100 mg Trazodone HCl (Desyrel) 150 mg PO [facility] Last Admin: 11/21/17 22:10 Dose: 150 mg - Labs Labs: 11/22/17 11:19 11/22/17 11:19 - Head Exam Head Exam: ATRAUMATIC, NORMOCEPHALIC - ENT Exam ENT Exam: Mucous Membranes Moist - Neck Exam Neck Exam: Normal Inspection - Respiratory Exam Respiratory Exam: Rhonchi, Wheezes - Cardiovascular Exam Cardiovascular Exam: REGULAR RHYTHM - GI/Abdominal Exam GI & Abdominal Exam: Soft, Normal Bowel Sounds Assessment and Plan (1) Pneumonia Assessment & Plan: Continue antibiotics Repeat chest xray Nebulizer treatment Antitussive Status: Acute (2) COPD exacerbation Status: Acute (3) Tracheostomy dependence Status: Acute
[2017-11-22] MEDS ORDERED: Dextrose 50% SYRINGE Inj (50 ml) IV PRN (12:17)
[2017-11-22] MEDS ORDERED: Glucagon Recombinant 1 mg Inj IM PRN (12:17)
[2017-11-22] MEDS ORDERED: (Lantus) Insulin Glargine, Recombinant SC ONE (12:30)
[2017-11-22] MEDS: Azithromycin 500 MG in Sodium Chloride 0.9% 250 ML IVPB SCH (13:33)
--- NOTE | 2017-11-22 22:06 | CP.PCM.PN ---
Subjective - Date & Time of Evaluation Date of Evaluation: 11/22/17 Time of Evaluation: 08:05 - Subjective Subjective: Patient seen and evaluated Some dyspnea and cough COPD Pneumonia Diastolic CHF Objective - Vital Signs/Intake and Output Vital Signs (last 24 hours): Temp Pulse Resp BP Pulse Ox 98.8 F 76 21 131/81 96 11/22/17 17:00 11/22/17 17:00 11/22/17 17:00 11/22/17 17:00 11/22/17 17:00 Intake and Output: 11/22/17 11/23/17 18:59 06:59 Intake Total 550 Output Total 500 Balance 50 - Medications Medications: Current Medications Acetaminophen (Tylenol 325mg Tab) 650 mg PO Q4 PRN PRN Reason: Pain, Mild (1-3) Last Admin: 11/17/17 06:57 Dose: 650 mg Albuterol/Ipratropium (Duoneb 3 Mg/0.5 Mg (3 Ml) Ud) 3 ml INH RQ4 [facility] Last Admin: 11/22/17 13:11 Dose: 3 ml Dextrose (Dextrose 50% Inj) 0 ml IV STAT PRN; Protocol PRN Reason: Hypoglycemia Protocol Dextrose (Glutose 15) 0 gm PO ONCE PRN; Protocol PRN Reason: Hypoglycemia Protocol Enoxaparin Sodium (Lovenox) 40 mg SC DAILY [facility] Last Admin: 11/22/17 09:28 Dose: 40 mg Gabapentin (Neurontin) 800 mg PO TID [facility] Last Admin: 11/22/17 18:01 Dose: 800 mg Glucagon (Glucagen Diagnostic Kit) 0 mg IM STAT PRN; Protocol PRN Reason: Hypoglycemia Protocol Guaifenesin (Robitussin) 200 mg PO Q4H [facility] Last Admin: 11/22/17 21:57 Dose: 200 mg Meropenem 1 gm/ Sodium (Chloride) 100 mls @ 100 mls/hr IVPB Q8H [facility]; Protocol Last Admin: 11/22/17 16:25 Dose: 100 mls/hr Azithromycin 500 mg/ Sodium (Chloride) 250 mls @ 167 mls/hr IVPB Q24H [facility]; Protocol Last Admin: 11/22/17 13:33 Dose: 167 mls/hr Dextrose (Dextrose 5% In Water 1000 Ml) 1,000 mls @ 0 mls/hr IV .Q0M PRN; Protocol PRN Reason: Hypoglycemia Protocol Insulin Aspart (Novolog) 0 unit SC ACHS [facility]; Protocol Last Admin: 11/22/17 21:59 Dose: Not Given Insulin Glargine (Lantus) 15 unit SC [facility] Methylprednisolone (Solu-Medrol) 40 mg IVP Q12 [facility] Last Admin: 11/22/17 21:47 Dose: 40 mg Montelukast Sodium (Singulair) 10 mg PO HS [facility] Last Admin: 11/22/17 21:58 Dose: 10 mg Nystatin (Nystop Topical Powder) 1 applic TOP BID [facility] Last Admin: 11/22/17 20:40 Dose: 1 iu Pantoprazole Sodium (Protonix Ec Tab) 40 mg PO DAILY [facility] Last Admin: 11/22/17 09:29 Dose: 40 mg Phenol/Menthol (Phenaseptic 1.4% Throat [place]) 0 ml MT Q2 PRN PRN Reason: Other Last Admin: 11/17/17 01:22 Dose: 1 sponge Quetiapine Fumarate (Seroquel Xr) 400 mg PO BID [facility] Last Admin: 11/22/17 18:01 Dose: 400 mg Saliva Substitute (First Magic Mouthwash) 5 ml PO Q4 [facility] Last Admin: 11/22/17 20:40 Dose: 5 ml Sertraline HCl (Zoloft) 100 mg PO BID [facility] Last Admin: 11/22/17 18:01 Dose: 100 mg Trazodone HCl (Desyrel) 150 mg PO [facility] Last Admin: 11/22/17 21:58 Dose: 150 mg - Labs Labs: 11/22/17 11:19 11/22/17 11:19
--- NOTE | 2017-11-22 23:54 | CP.PCM.PN ---
Objective - Vital Signs/Intake and Output Vital Signs (last 24 hours): Temp Pulse Resp BP Pulse Ox 98.8 F 76 21 131/81 96 11/22/17 17:00 11/22/17 17:00 11/22/17 17:00 11/22/17 17:00 11/22/17 17:00 Intake and Output: 11/22/1718 18:59 06:59 Intake Total 550 Output Total 500 Balance 50 - Medications Medications: Current Medications Acetaminophen (Tylenol 325mg Tab) 650 mg PO Q4 PRN PRN Reason: Pain, Mild (1-3) Last Admin: 11/17/17 06:57 Dose: 650 mg Albuterol/Ipratropium (Duoneb 3 Mg/0.5 Mg (3 Ml) Ud) 3 ml INH RQ4 [facility] Last Admin: 11/22/17 20:45 Dose: 3 ml Dextrose (Dextrose 50% Inj) 0 ml IV STAT PRN; Protocol PRN Reason: Hypoglycemia Protocol Dextrose (Glutose 15) 0 gm PO ONCE PRN; Protocol PRN Reason: Hypoglycemia Protocol Enoxaparin Sodium (Lovenox) 40 mg SC DAILY [facility] Last Admin: 11/22/17 09:28 Dose: 40 mg Gabapentin (Neurontin) 800 mg PO TID [facility] Last Admin: 11/22/17 18:01 Dose: 800 mg Glucagon (Glucagen Diagnostic Kit) 0 mg IM STAT PRN; Protocol PRN Reason: Hypoglycemia Protocol Guaifenesin (Robitussin) 200 mg PO Q4H [facility] Last Admin: 11/22/17 21:57 Dose: 200 mg Meropenem 1 gm/ Sodium (Chloride) 100 mls @ 100 mls/hr IVPB Q8H [facility]; Protocol Last Admin: 11/22/17 16:25 Dose: 100 mls/hr Azithromycin 500 mg/ Sodium (Chloride) 250 mls @ 167 mls/hr IVPB Q24H [facility]; Protocol Last Admin: 11/22/17 13:33 Dose: 167 mls/hr Dextrose (Dextrose 5% In Water 1000 Ml) 1,000 mls @ 0 mls/hr IV .Q0M PRN; Protocol PRN Reason: Hypoglycemia Protocol Insulin Aspart (Novolog) 0 unit SC ACHS [facility]; Protocol Last Admin: 11/22/17 21:59 Dose: Not Given Insulin Glargine (Lantus) [address] [facility] Methylprednisolone (Solu-Medrol) 40 mg IVP Q12 [facility] Last Admin: 11/22/17 21:47 Dose: 40 mg Montelukast Sodium (Singulair) 10 mg PO HS [facility] Last Admin: 11/22/17 21:58 Dose: 10 mg Nystatin (Nystop Topical Powder) 1 applic TOP BID [facility] Last Admin: 11/22/17 20:40 Dose: 1 iu Pantoprazole Sodium (Protonix Ec Tab) 40 mg PO DAILY [facility] Last Admin: 11/22/17 09:29 Dose: 40 mg Phenol/Menthol (Phenaseptic 1.4% Throat [place]) 0 ml MT Q2 PRN PRN Reason: Other Last Admin: 11/17/17 01:22 Dose: 1 sponge Quetiapine Fumarate (Seroquel Xr) 400 mg PO BID [facility] Last Admin: 11/22/17 18:01 Dose: 400 mg Saliva Substitute (First Magic Mouthwash) 5 ml PO Q4 [facility] Last Admin: 11/22/17 20:40 Dose: 5 ml Sertraline HCl (Zoloft) 100 mg PO BID [facility] Last Admin: 11/22/17 18:01 Dose: 100 mg Trazodone HCl (Desyrel) [address] [facility] Last Admin: 11/22/17 21:58 Dose: 150 mg - Labs Labs: 11/22/17 11:19 11/22/17 11:19
[2017-11-23] MEDS: Mag&Al/Simet/Diphen/Lido 237 ML KIT PO SCH ×6 (00:48→20:34)
[2017-11-23] MEDS: guaiFENesin 100 mg/5 ml Syrup UD PO SCH ×8 (00:49→21:51)
[2017-11-23] MEDS: Meropenem 1 GM in Sodium Chloride 0.9% 100 ML IVPB SCH ×3 (01:31→17:52)
[2017-11-23] MEDS: Albuterol-Ipratrop 3 mg / 0.5 (3 ml) UD INH SCH ×6 (03:27→23:56)
[2017-11-23] MEDS: (Novolog) Insulin Aspart, Recombinant 100 u/ml 10 ml vial SC SCH ×4 (08:30→21:57)
[2017-11-23] MEDS: QUEtiapine 200 mg XR Tab PO SCH ×2 (10:08→17:52)
[2017-11-23] MEDS: Pantoprazole 40 mg EC Tab PO SCH (10:09)
[2017-11-23] MEDS: MethylPREDNISolone 40 mg Vial IVP SCH ×2 (10:09→21:47)
[2017-11-23] MEDS: Enoxaparin 40 mg Syringe SC SCH (10:12)
--- NOTE | 2017-11-23 12:41 | RAD ---
Date of service: 11/23/2017 HISTORY: Follow-up pneumonia. COMPARISON: 11/14/2017 FINDINGS: LUNGS: Interval improvement left lower lobe infiltrate. PLEURA: No significant pleural effusion identified, no pneumothorax apparent. CARDIOVASCULAR: No radiographic findings to suggest acute or significant cardiovascular disease. PICC line in satisfactory position OSSEOUS STRUCTURES: No significant abnormalities. VISUALIZED UPPER ABDOMEN: Normal. OTHER FINDINGS: Stable, satisfactory position of tracheostomy device. IMPRESSION: Interval improvement without complete resolution left lower lobe infiltrate.
--- NOTE | 2017-11-23 13:41 | CP.PCM.PN ---
Subjective - Date & Time of Evaluation Date of Evaluation: 11/23/17 Time of Evaluation: 10:00 - Subjective Subjective: patient seen and examined Still complaining of cough No shortness of breath Afebrile Fair appetite chest x-ray showed resolving infiltrate Objective - Vital Signs/Intake and Output Vital Signs (last 24 hours): Temp Pulse Resp BP Pulse Ox 98.7 F 78 20 148/82 96 11/23/17 08:00 11/23/17 08:00 11/23/17 08:00 11/23/17 08:00 11/23/17 08:00 Intake and Output: 11/23/17 11/23/17 06:59 18:59 Intake Total 650 Output Total 1100 Balance -450 - Medications Medications: Current Medications Acetaminophen (Tylenol 325mg Tab) 650 mg PO Q4 PRN PRN Reason: Pain, Mild (1-3) Last Admin: 11/17/17 06:57 Dose: 650 mg Albuterol/Ipratropium (Duoneb 3 Mg/0.5 Mg (3 Ml) Ud) 3 ml INH RQ4 [facility] Last Admin: 11/23/17 12:34 Dose: 3 ml Dextrose (Dextrose 50% Inj) 0 ml IV STAT PRN; Protocol PRN Reason: Hypoglycemia Protocol Dextrose (Glutose 15) 0 gm PO ONCE PRN; Protocol PRN Reason: Hypoglycemia Protocol Enoxaparin Sodium (Lovenox) 40 mg SC DAILY [facility] Last Admin: 11/23/17 10:12 Dose: 40 mg Gabapentin (Neurontin) 800 mg PO TID [facility] Last Admin: 11/23/17 10:08 Dose: 800 mg Glucagon (Glucagen Diagnostic Kit) 0 mg IM STAT PRN; Protocol PRN Reason: Hypoglycemia Protocol Guaifenesin (Robitussin) 200 mg PO Q4H [facility] Last Admin: 11/23/17 10:08 Dose: 200 mg Meropenem 1 gm/ Sodium (Chloride) 100 mls @ 100 mls/hr IVPB Q8H [facility]; Protocol Last Admin: 11/23/17 08:38 Dose: 100 mls/hr Azithromycin 500 mg/ Sodium (Chloride) 250 mls @ 167 mls/hr IVPB Q24H [facility]; Protocol Last Admin: 11/22/17 13:33 Dose: 167 mls/hr Dextrose (Dextrose 5% In Water 1000 Ml) 1,000 mls @ 0 mls/hr IV .Q0M PRN; Protocol PRN Reason: Hypoglycemia Protocol Insulin Aspart (Novolog) 0 unit SC [facility]CHS [facility]; Protocol Last Admin: 11/23/17 12:26 Dose: 2 units Insulin Glargine (Lantus) 15 unit SC [facility] Methylprednisolone (Solu-Medrol) 40 mg IVP Q12 [facility] Last Admin: 11/23/17 10:09 Dose: 40 mg Montelukast Sodium (Singulair) 10 mg PO [facility] Last Admin: 11/22/17 21:58 Dose: 10 mg Nystatin (Nystop Topical Powder) 1 applic TOP BID [facility] Last Admin: 11/23/17 10:09 Dose: 1 iu Pantoprazole Sodium (Protonix Ec Tab) 40 mg PO DAILY [facility] Last Admin: 11/23/17 10:09 Dose: 40 mg Phenol/Menthol (Phenaseptic 1.4% Throat [place]) 0 ml MT Q2 PRN PRN Reason: Other Last Admin: 11/17/17 01:22 Dose: 1 sponge Quetiapine Fumarate (Seroquel Xr) 400 mg PO BID [facility] Last Admin: 11/23/17 10:08 Dose: 400 mg Saliva Substitute (First Magic Mouthwash) 5 ml PO Q4 [facility] Last Admin: 11/23/17 12:26 Dose: 5 ml Sertraline HCl (Zoloft) 100 mg PO BID [facility] Last Admin: 11/23/17 10:08 Dose: 100 mg Trazodone HCl (Desyrel) 150 mg PO [facility] Last Admin: 11/22/17 21:58 Dose: 150 mg - Labs Labs: 11/22/17 11:19 11/22/17 11:19 - Head Exam Head Exam: ATRAUMATIC, NORMOCEPHALIC - Eye Exam Eye Exam: Normal appearance - ENT Exam ENT Exam: Mucous Membranes Moist - Neck Exam Neck Exam: Normal Inspection - Respiratory Exam Respiratory Exam: Rhonchi, Wheezes - Cardiovascular Exam Cardiovascular Exam: REGULAR RHYTHM Assessment and Plan (1) Pneumonia Assessment & Plan: continue antibiotics Continue nebulizer treat Status: Acute (2) COPD exacerbation Status: Acute (3) Tracheostomy dependence Status: Acute
[2017-11-23] MEDS: Azithromycin 500 MG in Sodium Chloride 0.9% 250 ML IVPB SCH (14:04)
--- NOTE | 2017-11-23 17:57 | CP.PCM.PN ---
Subjective - Date & Time of Evaluation Date of Evaluation: 11/23/17 Time of Evaluation: 09:00 - Subjective Subjective: congested but afeb nad Objective - Vital Signs/Intake and Output Vital Signs (last 24 hours): Temp Pulse Resp BP Pulse Ox 99.3 F 74 20 150/84 95 11/23/17 15:00 11/23/17 15:00 11/23/17 15:00 11/23/17 15:00 11/23/17 15:00 Intake and Output: 11/23/17 11/23/17 06:59 18:59 Intake Total 650 710 Output Total 1100 600 Balance -450 110 - Medications Medications: Current Medications Acetaminophen (Tylenol 325mg Tab) 650 mg PO Q4 PRN PRN Reason: Pain, Mild (1-3) Last Admin: 11/17/17 06:57 Dose: 650 mg Albuterol/Ipratropium (Duoneb 3 Mg/0.5 Mg (3 Ml) Ud) 3 ml INH RQ4 [facility] Last Admin: 11/23/17 16:50 Dose: 3 ml Dextrose (Dextrose 50% Inj) 0 ml IV STAT PRN; Protocol PRN Reason: Hypoglycemia Protocol Dextrose (Glutose 15) 0 gm PO ONCE PRN; Protocol PRN Reason: Hypoglycemia Protocol Enoxaparin Sodium (Lovenox) 40 mg SC DAILY [facility] Last Admin: 11/23/17 10:12 Dose: 40 mg Gabapentin (Neurontin) 800 mg PO TID [facility] Last Admin: 11/23/17 17:52 Dose: 800 mg Glucagon (Glucagen Diagnostic Kit) 0 mg IM STAT PRN; Protocol PRN Reason: Hypoglycemia Protocol Guaifenesin (Robitussin) 200 mg PO Q4H [facility] Last Admin: 11/23/17 17:53 Dose: 200 mg Meropenem 1 gm/ Sodium (Chloride) 100 mls @ 100 mls/hr IVPB Q8H [facility]; Protocol Last Admin: 11/23/17 17:52 Dose: 100 mls/hr Azithromycin 500 mg/ Sodium (Chloride) 250 mls @ 167 mls/hr IVPB Q24H [facility]; Protocol Last Admin: 11/23/17 14:04 Dose: 167 mls/hr Dextrose (Dextrose 5% In Water 1000 Ml) 1,000 mls @ 0 mls/hr IV .Q0M PRN; Protocol PRN Reason: Hypoglycemia Protocol Insulin Aspart (Novolog) 0 unit SC ACHS [facility]; Protocol Last Admin: 11/23/17 17:15 Dose: 4 units Insulin Glargine (Lantus) 15 unit SC [facility] Methylprednisolone (Solu-Medrol) 40 mg IVP Q12 [facility] Last Admin: 11/23/17 10:09 Dose: 40 mg Montelukast Sodium (Singulair) 10 mg PO [facility] Last Admin: 11/22/17 21:58 Dose: 10 mg Nystatin (Nystop Topical Powder) 1 applic TOP BID [facility] Last Admin: 11/23/17 10:09 Dose: 1 iu Pantoprazole Sodium (Protonix Ec Tab) 40 mg PO DAILY [facility] Last Admin: 11/23/17 10:09 Dose: 40 mg Phenol/Menthol (Phenaseptic 1.4% Throat [place]) 0 ml MT Q2 PRN PRN Reason: Other Last Admin: 11/17/17 01:22 Dose: 1 sponge Quetiapine Fumarate (Seroquel Xr) 400 mg PO BID [facility] Last Admin: 11/23/17 17:52 Dose: 400 mg Saliva Substitute (First Magic Mouthwash) 5 ml PO Q4 [facility] Last Admin: 11/23/17 16:00 Dose: 5 ml Sertraline HCl (Zoloft) 100 mg PO BID [facility] Last Admin: 11/23/17 17:52 Dose: 100 mg Trazodone HCl (Desyrel) 150 mg PO [facility] Last Admin: 11/22/17 21:58 Dose: 150 mg - Labs Labs: 11/22/17 11:19 11/22/17 11:19 - Constitutional Appears: Non-toxic, Chronically Ill - Head Exam Head Exam: NORMOCEPHALIC - Eye Exam Eye Exam: PERRL - ENT Exam ENT Exam: Mucous Membranes Dry - Neck Exam Neck Exam: absent: Lymphadenopathy - Respiratory Exam Respiratory Exam: Decreased Breath Sounds, Prolonged Expiratory Phase, Rhonchi - Cardiovascular Exam Cardiovascular Exam: REGULAR RHYTHM - GI/Abdominal Exam GI & Abdominal Exam: Distended, Soft. absent: Guarding, Tenderness - Rectal Exam Rectal Exam: Deferred - Exam Exam: NORMAL INSPECTION - Extremities Exam Extremities Exam: absent: Pedal Edema - Back Exam Back Exam: absent: CVA tenderness (L), CVA tenderness (R) - Neurological Exam Neurological Exam: Alert, Awake, Oriented x3 Assessment and Plan (1) COPD exacerbation Status: Acute (2) Chr obstructive pulmonary disease w/ acute lower respiratory infxn Status: Acute (3) Hypoxia Status: Acute (4) Pneumonia Status: Acute - Assessment and Plan (Free Text) Assessment: cont iv rx Merrem for total 21 days
[2017-11-23] MEDS: (Lantus) Insulin Glargine, Recombinant SC SCH (21:48)
--- NOTE | 2017-11-23 22:39 | CP.PCM.PN ---
Subjective - Date & Time of Evaluation Date of Evaluation: 11/23/17 Time of Evaluation: 16:10 - Subjective Subjective: Patient seen and evaluated Some dyspnea and cough COPD Pneumonia Diastolic CHF Objective - Vital Signs/Intake and Output Vital Signs (last 24 hours): Temp Pulse Resp BP Pulse Ox 99.3 F 74 20 150/84 95 11/23/17 15:00 11/23/17 15:00 11/23/17 15:00 11/23/17 15:00 11/23/17 15:00 Intake and Output: 11/23/17 11/24/17 18:59 06:59 Intake Total 710 Output Total 600 Balance 110 - Medications Medications: Current Medications Acetaminophen (Tylenol 325mg Tab) 650 mg PO Q4 PRN PRN Reason: Pain, Mild (1-3) Last Admin: 11/17/17 06:57 Dose: 650 mg Albuterol/Ipratropium (Duoneb 3 Mg/0.5 Mg (3 Ml) Ud) 3 ml INH RQ4 [facility] Last Admin: 11/23/17 19:45 Dose: 3 ml Clonazepam (Klonopin) 1 mg PO TID PRN PRN Reason: Anxiety Last Admin: 11/23/17 22:27 Dose: 1 mg Dextrose (Dextrose 50% Inj) 0 ml IV STAT PRN; Protocol PRN Reason: Hypoglycemia Protocol Dextrose (Glutose 15) 0 gm PO ONCE PRN; Protocol PRN Reason: Hypoglycemia Protocol Enoxaparin Sodium (Lovenox) 40 mg SC DAILY [facility] Last Admin: 11/23/17 10:12 Dose: 40 mg Gabapentin (Neurontin) 800 mg PO TID [facility] Last Admin: 11/23/17 17:52 Dose: 800 mg Glucagon (Glucagen Diagnostic Kit) 0 mg IM STAT PRN; Protocol PRN Reason: Hypoglycemia Protocol Guaifenesin (Robitussin) 200 mg PO Q4H [facility] Last Admin: 11/23/17 21:51 Dose: 200 mg Meropenem 1 gm/ Sodium (Chloride) 100 mls @ 100 mls/hr IVPB Q8H [facility]; Protocol Last Admin: 11/23/17 17:52 Dose: 100 mls/hr Azithromycin 500 mg/ Sodium (Chloride) 250 mls @ 167 mls/hr IVPB Q24H [facility]; Protocol Last Admin: 11/23/17 14:04 Dose: 167 mls/hr Dextrose (Dextrose 5% In Water 1000 Ml) 1,000 mls @ 0 mls/hr IV .Q0M PRN; Protocol PRN Reason: Hypoglycemia Protocol Insulin Aspart (Novolog) 0 unit SC ACHS [facility]; Protocol Last Admin: 11/23/17 21:57 Dose: Not Given Insulin Glargine (Lantus) 15 unit SC [facility] Last Admin: 11/23/17 21:48 Dose: 15 u Methylprednisolone (Solu-Medrol) 40 mg IVP Q12 [facility] Last Admin: 11/23/17 21:47 Dose: 40 mg Montelukast Sodium (Singulair) 10 mg PO [facility] Last Admin: 11/23/17 21:52 Dose: 10 mg Nystatin (Nystop Topical Powder) 1 applic TOP BID [facility] Last Admin: 11/23/17 17:56 Dose: 1 applic Pantoprazole Sodium (Protonix Ec Tab) 40 mg PO DAILY [facility] Last Admin: 11/23/17 10:09 Dose: 40 mg Phenol/Menthol (Phenaseptic 1.4% Throat [place]) 0 ml MT Q2 PRN PRN Reason: Other Last Admin: 11/17/17 01:22 Dose: 1 sponge Quetiapine Fumarate (Seroquel Xr) 400 mg PO BID [facility] Last Admin: 11/23/17 17:52 Dose: 400 mg Saliva Substitute (First Magic Mouthwash) 5 ml PO Q4 [facility] Last Admin: 11/23/17 20:34 Dose: 5 ml Sertraline HCl (Zoloft) 100 mg PO BID [facility] Last Admin: 11/23/17 17:52 Dose: 100 mg Trazodone HCl (Desyrel) 150 mg PO [facility] Last Admin: 11/23/17 21:52 Dose: 150 mg - Labs Labs: 11/22/17 11:19 11/22/17 11:19
[2017-11-24] MEDS: Mag&Al/Simet/Diphen/Lido 237 ML KIT PO SCH ×7 (00:24→23:28)
[2017-11-24] MEDS: Meropenem 1 GM in Sodium Chloride 0.9% 100 ML IVPB SCH ×3 (00:41→17:47)
[2017-11-24] MEDS: guaiFENesin 100 mg/5 ml Syrup UD PO SCH ×4 (02:00→17:48)
--- NOTE | 2017-11-24 03:13 | PN ---
DATE: 11/23/2017 SUBJECTIVE: Mrs. Moser is congested, coughing. Her steroids are tapered. She is afebrile. PHYSICAL EXAMINATION: VITAL SIGNS: BP is 149/87, pulse 80, respiratory rate 20, temperature 97.4. LUNGS: Decreased air entry. Positive rhonchi. CVS: S1 and S2, regular. ABDOMEN: Soft. ASSESSMENT: 1. Tracheobronchitis. 2. Bronchial asthma. 3. Diabetes. 4. Tracheostomy. 5. Hypertension. PLAN: Continue current medication and monitor the patient. Ad Khan MD
[2017-11-24] MEDS: Albuterol-Ipratrop 3 mg / 0.5 (3 ml) UD INH SCH ×5 (03:26→20:44)
--- NOTE | 2017-11-24 04:48 | PN ---
DATE: 11/23/2017 SUBJECTIVE: Carin Moser is on tapering doses of steroids. She is feeling more anxious, restless. She is coughing. She is wheezing. She is afebrile. Decreased shortness of breath. No nausea or vomiting. PHYSICAL EXAMINATION: VITAL SIGNS: BP 150/84, pulse 74, respiratory rate 20, and temperature 99.3. LUNGS: Bilateral inspiratory/expiratory rhonchi. Decreased air entry. CARDIOVASCULAR SYSTEM: S1 and S2 are regular. ABDOMEN: Soft. ASSESSMENT: Tracheobronchitis, bronchial asthma exacerbation, diabetes, hypertension, and major depression. PLAN: Continue current medication. Monitor the patient. Ad Khan MD
[2017-11-24] MEDS: (Novolog) Insulin Aspart, Recombinant 100 u/ml 10 ml vial SC SCH ×4 (08:21→22:01)
[2017-11-24] MEDS ORDERED: Influenza Vaccine 60 MCG/0.5 ML SYR (3 yr & up) IM ONE ×2 (10:00→12:30)
[2017-11-24] MEDS: Enoxaparin 40 mg Syringe SC SCH (11:00)
[2017-11-24] MEDS: Pantoprazole 40 mg EC Tab PO SCH (11:00)
[2017-11-24] MEDS: MethylPREDNISolone 40 mg Vial IVP SCH ×2 (11:00→22:02)
[2017-11-24] MEDS: QUEtiapine 200 mg XR Tab PO SCH ×2 (11:00→17:23)
--- NOTE | 2017-11-24 11:45 | CP.PCM.PN ---
Subjective - Date & Time of Evaluation Date of Evaluation: 11/24/17 Time of Evaluation: 08:55 - Subjective Subjective: patient seen and examined Still having cough and secretions Afebrile Patient is awake and respsive Resolving infiltrate Continue antibiotics Objective - Vital Signs/Intake and Output Vital Signs (last 24 hours): Temp Pulse Resp BP Pulse Ox 97.7 F 69 20 144/79 95 11/24/17 07:34 11/24/17 07:34 11/24/17 07:34 11/24/17 07:34 11/24/17 07:34 Intake and Output: 11/24/17 11/24/17 06:59 18:59 Intake Total 500 100 Output Total 490 300 Balance 10 -200 - Medications Medications: Current Medications Acetaminophen (Tylenol 325mg Tab) 650 mg PO Q4 PRN PRN Reason: Pain, Mild (1-3) Last Admin: 11/17/17 06:57 Dose: 650 mg Albuterol/Ipratropium (Duoneb 3 Mg/0.5 Mg (3 Ml) Ud) 3 ml INH RQ4 [facility] Last Admin: 11/24/17 11:31 Dose: 3 ml Clonazepam (Klonopin) 1 mg PO TID PRN PRN Reason: Anxiety Last Admin: 11/23/17 22:27 Dose: 1 mg Dextrose (Dextrose 50% Inj) 0 ml IV STAT PRN; Protocol PRN Reason: Hypoglycemia Protocol Dextrose (Glutose 15) 0 gm PO ONCE PRN; Protocol PRN Reason: Hypoglycemia Protocol Enoxaparin Sodium (Lovenox) 40 mg SC DAILY [facility] Last Admin: 11/24/17 11:00 Dose: 40 mg Gabapentin (Neurontin) 800 mg PO TID [facility] Last Admin: 11/24/17 11:08 Dose: 800 mg Glucagon (Glucagen Diagnostic Kit) 0 mg IM STAT PRN; Protocol PRN Reason: Hypoglycemia Protocol Guaifenesin (Robitussin) 200 mg PO Q4H [facility] Last Admin: 11/24/17 09:45 Dose: 200 mg Meropenem 1 gm/ Sodium (Chloride) 100 mls @ 100 mls/hr IVPB Q8H [facility]; Protocol Last Admin: 11/24/17 08:24 Dose: 100 mls/hr Azithromycin 500 mg/ Sodium (Chloride) 250 mls @ 167 mls/hr IVPB Q24H [facility]; Protocol Last Admin: 11/23/17 14:04 Dose: 167 mls/hr Dextrose (Dextrose 5% In Water 1000 Ml) 1,000 mls @ 0 mls/hr IV .Q0M PRN; Protocol PRN Reason: Hypoglycemia Protocol Insulin Aspart (Novolog) 0 unit SC ACHS [facility]; Protocol Last Admin: 11/24/17 08:21 Dose: 6 units Insulin Glargine (Lantus) 15 unit SC [facility] Last Admin: 11/23/17 21:48 Dose: 15 u Methylprednisolone (Solu-Medrol) 40 mg IVP Q12 [facility] Last Admin: 11/24/17 11:00 Dose: 40 mg Montelukast Sodium (Singulair) 10 mg PO HS [facility] Last Admin: 11/23/17 21:52 Dose: 10 mg Nystatin (Nystop Topical Powder) 1 applic TOP BID [facility] Last Admin: 11/24/17 10:27 Dose: 1 applic Pantoprazole Sodium (Protonix Ec Tab) 40 mg PO DAILY [facility] Last Admin: 11/24/17 11:00 Dose: 40 mg Phenol/Menthol (Phenaseptic 1.4% Throat [place]) 0 ml MT Q2 PRN PRN Reason: Other Last Admin: 11/17/17 01:22 Dose: 1 sponge Quetiapine Fumarate (Seroquel Xr) 400 mg PO BID [facility] Last Admin: 11/24/17 11:00 Dose: 400 mg Saliva Substitute (First Magic Mouthwash) 5 ml PO Q4 [facility] Last Admin: 11/24/17 08:35 Dose: Not Given Sertraline HCl (Zoloft) 100 mg PO BID [facility] Last Admin: 11/24/17 11:07 Dose: 100 mg Trazodone HCl (Desyrel) 150 mg PO HS [facility] Last Admin: 11/23/17 21:52 Dose: 150 mg - Labs Labs: 11/22/17 11:19 11/22/17 11:19 Assessment and Plan (1) Pneumonia Status: Acute (2) COPD exacerbation Status: Acute (3) Tracheostomy dependence Status: Acute
[2017-11-24] MEDS: Azithromycin 500 MG in Sodium Chloride 0.9% 250 ML IVPB SCH (15:30)
--- NOTE | 2017-11-24 21:29 | CP.PCM.PN ---
Objective - Vital Signs/Intake and Output Vital Signs (last 24 hours): Temp Pulse Resp BP Pulse Ox 98.2 F 84 20 139/81 97 11/24/17 15:02 11/24/17 15:02 11/24/17 15:02 11/24/17 15:02 11/24/17 15:02 Intake and Output: 11/24/17 11/25/17 18:59 06:59 Intake Total 650 Output Total 600 Balance 50 - Medications Medications: Current Medications Acetaminophen (Tylenol 325mg Tab) 650 mg PO Q4 PRN PRN Reason: Pain, Mild (1-3) Last Admin: 11/17/17 06:57 Dose: 650 mg Albuterol/Ipratropium (Duoneb 3 Mg/0.5 Mg (3 Ml) Ud) 3 ml INH RQ4 [facility] Last Admin: 11/24/17 20:44 Dose: 3 ml Clonazepam (Klonopin) 1 mg PO TID PRN PRN Reason: Anxiety Last Admin: 11/24/17 17:42 Dose: 1 mg Dextrose (Dextrose 50% Inj) 0 ml IV STAT PRN; Protocol PRN Reason: Hypoglycemia Protocol Dextrose (Glutose 15) 0 gm PO ONCE PRN; Protocol PRN Reason: Hypoglycemia Protocol Enoxaparin Sodium (Lovenox) 40 mg SC DAILY [facility] Last Admin: 11/24/17 11:00 Dose: 40 mg Gabapentin (Neurontin) 800 mg PO TID [facility] Last Admin: 11/24/17 17:20 Dose: 800 mg Glucagon (Glucagen Diagnostic Kit) 0 mg IM STAT PRN; Protocol PRN Reason: Hypoglycemia Protocol Guaifenesin (Robitussin) 200 mg PO Q4H [facility] Last Admin: 11/24/17 17:48 Dose: 200 mg Dextrose (Dextrose 5% In Water 1000 Ml) 1,000 mls @ 0 mls/hr IV .Q0M PRN; Protocol PRN Reason: Hypoglycemia Protocol Azithromycin 500 mg/ Sodium (Chloride) 250 mls @ 166.667 mls/hr IVPB Q24H [facility]; Protocol Meropenem 1 gm/ Sodium (Chloride) 100 mls @ 100 mls/hr IVPB Q8H [facility]; Protocol Last Admin: 11/24/17 17:47 Dose: 100 mls/hr Insulin Aspart (Novolog) 0 unit SC ACHS [facility]; Protocol Last Admin: 11/24/17 17:19 Dose: 6 units Insulin Glargine (Lantus) 15 unit SC HS REPLACED BY [facility] Last Admin: 11/23/17 21:48 Dose: 15 u Methylprednisolone (Solu-Medrol) 40 mg IVP Q12 REPLACED BY [facility] Last Admin: 11/24/17 11:00 Dose: 40 mg Montelukast Sodium (Singulair) 10 mg PO HS REPLACED BY [facility] Last Admin: 11/23/17 21:52 Dose: 10 mg Nystatin (Nystop Topical Powder) 1 applic TOP BID REPLACED BY [facility] Last Admin: 11/24/17 17:22 Dose: 1 applic Pantoprazole Sodium (Protonix Ec Tab) 40 mg PO DAILY REPLACED BY [facility] Last Admin: 11/24/17 11:00 Dose: 40 mg Phenol/Menthol (Phenaseptic 1.4% Throat [place]) 0 ml MT Q2 PRN PRN Reason: Other Last Admin: 11/17/17 01:22 Dose: 1 sponge Quetiapine Fumarate (Seroquel Xr) 400 mg PO BID REPLACED BY [facility] Last Admin: 11/24/17 17:23 Dose: 400 mg Saliva Substitute (First Magic Mouthwash) 5 ml PO Q4 REPLACED BY [facility] Last Admin: 11/24/17 20:43 Dose: 5 ml Sertraline HCl (Zoloft) 100 mg PO BID REPLACED BY [facility] Last Admin: 11/24/17 17:24 Dose: 100 mg Trazodone HCl (Desyrel) 150 mg PO [facility] Last Admin: 11/23/17 21:52 Dose: 150 mg - Labs Labs: 11/22/17 11:19 11/22/17 11:19
--- NOTE | 2017-11-24 21:29 | CP.PCM.PN ---
Subjective - Date & Time of Evaluation Date of Evaluation: 11/23/17 Objective - Vital Signs/Intake and Output Vital Signs (last 24 hours): Temp Pulse Resp BP Pulse Ox 98.2 F 84 20 139/81 97 11/24/17 15:02 11/24/17 15:02 11/24/17 15:02 11/24/17 15:02 11/24/17 15:02 Intake and Output: 11/24/17 11/25/17 18:59 06:59 Intake Total 650 Output Total 600 Balance 50 - Medications Medications: Current Medications Acetaminophen (Tylenol 325mg Tab) 650 mg PO Q4 PRN PRN Reason: Pain, Mild (1-3) Last Admin: 11/17/17 06:57 Dose: 650 mg Albuterol/Ipratropium (Duoneb 3 Mg/0.5 Mg (3 Ml) Ud) 3 ml INH RQ4 [facility] Last Admin: 11/24/17 20:44 Dose: 3 ml Clonazepam (Klonopin) 1 mg PO TID PRN PRN Reason: Anxiety Last Admin: 11/24/17 17:42 Dose: 1 mg Dextrose (Dextrose 50% Inj) 0 ml IV STAT PRN; Protocol PRN Reason: Hypoglycemia Protocol Dextrose (Glutose 15) 0 gm PO ONCE PRN; Protocol PRN Reason: Hypoglycemia Protocol Enoxaparin Sodium (Lovenox) 40 mg SC DAILY [facility] Last Admin: 11/24/17 11:00 Dose: 40 mg Gabapentin (Neurontin) 800 mg PO TID [facility] Last Admin: 11/24/17 17:20 Dose: 800 mg Glucagon (Glucagen Diagnostic Kit) 0 mg IM STAT PRN; Protocol PRN Reason: Hypoglycemia Protocol Guaifenesin (Robitussin) 200 mg PO Q4H [facility] Last Admin: 11/24/17 17:48 Dose: 200 mg Dextrose (Dextrose 5% In Water 1000 Ml) 1,000 mls @ 0 mls/hr IV .Q0M PRN; Protocol PRN Reason: Hypoglycemia Protocol Azithromycin 500 mg/ Sodium (Chloride) 250 mls @ 166.667 mls/hr IVPB Q24H [facility]; Protocol Meropenem 1 gm/ Sodium (Chloride) 100 mls @ 100 mls/hr IVPB Q8H [facility]; Protocol Last Admin: 11/24/17 17:47 Dose: 100 mls/hr Insulin Aspart (Novolog) 0 unit SC [facility]; Protocol Last Admin: 11/24/17 17:19 Dose: 6 units Insulin Glargine (Lantus) 15 unit SC [facility] Last Admin: 11/23/17 21:48 Dose: 15 u Methylprednisolone (Solu-Medrol) 40 mg IVP Q12 [facility] Last Admin: 11/24/17 11:00 Dose: 40 mg Montelukast Sodium (Singulair) 10 mg PO [facility] Last Admin: 11/23/17 21:52 Dose: 10 mg Nystatin (Nystop Topical Powder) 1 applic TOP BID [facility] Last Admin: 11/24/17 17:22 Dose: 1 applic Pantoprazole Sodium (Protonix Ec Tab) 40 mg PO DAILY [facility] Last Admin: 11/24/17 11:00 Dose: 40 mg Phenol/Menthol (Phenaseptic 1.4% Throat [place]) 0 ml MT Q2 PRN PRN Reason: Other Last Admin: 11/17/17 01:22 Dose: 1 sponge Quetiapine Fumarate (Seroquel Xr) 400 mg PO BID [facility] Last Admin: 11/24/17 17:23 Dose: 400 mg Saliva Substitute (First Magic Mouthwash) 5 ml PO Q4 [facility] Last Admin: 11/24/17 20:43 Dose: 5 ml Sertraline HCl (Zoloft) 100 mg PO BID [facility] Last Admin: 11/24/17 17:24 Dose: 100 mg Trazodone HCl (Desyrel) 150 mg PO [facility] Last Admin: 11/23/17 21:52 Dose: 150 mg - Labs Labs: 11/22/17 11:19 11/22/17 11:19
[2017-11-24] MEDS: (Lantus) Insulin Glargine, Recombinant SC SCH (22:00)
[2017-11-24] MEDS: guaiFENesin 200 mg/10 ml Syrup UD PO SCH (22:10)
[2017-11-25] MEDS: Albuterol-Ipratrop 3 mg / 0.5 (3 ml) UD INH SCH ×6 (02:28→20:24)
[2017-11-25] MEDS: Meropenem 1 GM in Sodium Chloride 0.9% 100 ML IVPB SCH ×3 (02:49→17:30)
[2017-11-25] MEDS: guaiFENesin 200 mg/10 ml Syrup UD PO SCH ×6 (02:49→21:55)
[2017-11-25] MEDS: Mag&Al/Simet/Diphen/Lido 237 ML KIT PO SCH ×5 (03:55→20:56)
[2017-11-25] MEDS: (Novolog) Insulin Aspart, Recombinant 100 u/ml 10 ml vial SC SCH ×4 (08:28→21:23)
--- NOTE | 2017-11-25 09:12 | CP.PCM.PN ---
Subjective - Date & Time of Evaluation Date of Evaluation: 11/24/17 Time of Evaluation: 12:20 - Subjective Subjective: Patient seen and evaluated still has some dyspnea HPI: Patient is a 62 year old female with history of COPD, HTN, diastolic CHF, sp tracheostomy PMH: COPD, HTN, CHF, sp tracheostomy, anxiety, depression, seizures PSH: appendectomy, cholecystectomy, tracheostomy Home meds: As per MAR, Trazodone, Protonix, Singulair, Seroquel, Gabapentin, Lantus Social hx: no tobacco, alcohol or drug use. Allergies: ASA, Rocephn, Ibuprofen, Iodine, raspberry Physical Exam - Constitutional Appears: Non-toxic - Respiratory Exam Respiratory Exam: NORMAL BREATHING PATTERN Additional comments: With tracheostomy - Cardiovascular Exam Cardiovascular Exam: REGULAR RHYTHM, +S1, +S2 - GI/Abdominal Exam GI & Abdominal Exam: Normal Bowel Sounds - Extremities Exam Extremities exam: Negative for: pedal edema Assessment & Plan (1) COPD Assessment and Plan: Patient is a 62 year old female with history of COPD, HTN, CHF, sp tracheostomy (2) Diastolic CHF Assessment and Plan: Lasix as needed (3) HTN Assessment and Plan: Controlled Objective - Vital Signs/Intake and Output Vital Signs (last 24 hours): Temp Pulse Resp BP Pulse Ox 97.6 F 76 20 144/76 98 11/25/17 08:28 11/25/17 08:28 11/25/17 08:28 11/25/17 08:28 11/25/17 08:28 Intake and Output: 11/25/17 11/25/17 06:59 18:59 Intake Total 550 500 Output Total 300 500 Balance 250 0 - Medications Medications: Current Medications Acetaminophen (Tylenol 325mg Tab) 650 mg PO Q4 PRN PRN Reason: Pain, Mild (1-3) Last Admin: 11/17/17 06:57 Dose: 650 mg Albuterol/Ipratropium (Duoneb 3 Mg/0.5 Mg (3 Ml) Ud) 3 ml INH RQ4 [facility] Last Admin: 11/25/17 07:41 Dose: 3 ml Clonazepam (Klonopin) 1 mg PO TID PRN PRN Reason: Anxiety Last Admin: 11/25/17 08:35 Dose: 1 mg Dextrose (Dextrose 50% Inj) 0 ml IV STAT PRN; Protocol PRN Reason: Hypoglycemia Protocol Dextrose (Glutose 15) 0 gm PO ONCE PRN; Protocol PRN Reason: Hypoglycemia Protocol Enoxaparin Sodium (Lovenox) 40 mg SC DAILY [facility] Last Admin: 11/24/17 11:00 Dose: 40 mg Gabapentin (Neurontin) 800 mg PO TID [facility] Last Admin: 11/24/17 17:20 Dose: 800 mg Glucagon (Glucagen Diagnostic Kit) 0 mg IM STAT PRN; Protocol PRN Reason: Hypoglycemia Protocol Guaifenesin (Robitussin) 200 mg PO Q4H [facility] Last Admin: 11/25/17 06:01 Dose: 200 mg Dextrose (Dextrose 5% In Water 1000 Ml) 1,000 mls @ 0 mls/hr IV .Q0M PRN; Protocol PRN Reason: Hypoglycemia Protocol Azithromycin 500 mg/ Sodium (Chloride) 250 mls @ 166.667 mls/hr IVPB Q24H [facility]; Protocol Meropenem 1 gm/ Sodium (Chloride) 100 mls @ 100 mls/hr IVPB Q8H [facility]; Protocol Last Admin: 11/25/17 02:49 Dose: 100 mls/hr Insulin Aspart (Novolog) 0 unit SC ACHS [facility]; Protocol Last Admin: 11/25/17 08:28 Dose: 4 units Insulin Glargine (Lantus) [address] [facility] Last Admin: 11/24/17 22:00 Dose: 15 units Methylprednisolone (Solu-Medrol) 40 mg IVP Q12 [facility] Last Admin: 11/24/17 22:02 Dose: 40 mg Montelukast Sodium (Singulair) 10 mg PO HS [facility] Last Admin: 11/24/17 22:01 Dose: 10 mg Nystatin (Nystop Topical Powder) 1 applic TOP BID [facility] Last Admin: 11/24/17 17:22 Dose: 1 applic Pantoprazole Sodium (Protonix Ec Tab) 40 mg PO DAILY [facility] Last Admin: 11/24/17 11:00 Dose: 40 mg Phenol/Menthol (Phenaseptic 1.4% Throat [place]) 0 ml MT Q2 PRN PRN Reason: Other Last Admin: 11/17/17 01:22 Dose: 1 sponge Quetiapine Fumarate (Seroquel Xr) 400 mg PO BID [facility] Last Admin: 11/24/17 17:23 Dose: 400 mg Saliva Substitute (First Magic Mouthwash) 5 ml PO Q4 [facility] Last Admin: 11/25/17 08:29 Dose: 5 ml Sertraline HCl (Zoloft) 100 mg PO BID [facility] Last Admin: 11/24/17 17:24 Dose: 100 mg Trazodone HCl (Desyrel) 150 mg PO HS [facility] Last Admin: 11/24/17 22:00 Dose: 150 mg - Labs Labs: 11/22/17 11:19 11/22/17 11:19
[2017-11-25] MEDS: MethylPREDNISolone 40 mg Vial IVP SCH ×2 (09:20→21:52)
[2017-11-25] MEDS: Pantoprazole 40 mg EC Tab PO SCH (09:24)
[2017-11-25] MEDS: Enoxaparin 40 mg Syringe SC SCH (09:25)
[2017-11-25] MEDS: QUEtiapine 200 mg XR Tab PO SCH ×2 (09:26→17:13)
--- NOTE | 2017-11-25 12:49 | PN ---
DATE: 11/24/2017 SUBJECTIVE: The patient is feeling better today. She is less short of breath. Less anxious. No fever. No nausea or vomiting. PHYSICAL EXAMINATION: VITAL SIGNS: Blood pressure 139/81, pulse 84, respiratory rate 20, and temperature 98.2. LUNGS: Bilateral rhonchi. CVS: S1, S2 regular. ABDOMEN: Soft. ASSESSMENT: 1. Acute bronchitis. 2. Diabetes. 3. Hypertension. 4. Tracheostomy. PLAN: Continue current medications. Monitor the patient. Ad Khan MD
[2017-11-25] MEDS: Azithromycin 500 MG in Sodium Chloride 0.9% 250 ML IVPB SCH (13:33)
--- NOTE | 2017-11-25 14:39 | CP.PCM.PN ---
Subjective - Date & Time of Evaluation Date of Evaluation: 11/25/17 Time of Evaluation: 09:00 - Subjective Subjective: seen on rounds coughing less SOB moderate secretions trach collar in place Objective - Vital Signs/Intake and Output Vital Signs (last 24 hours): Temp Pulse Resp BP Pulse Ox 97.6 F 76 20 144/76 98 11/25/17 08:28 11/25/17 08:28 11/25/17 08:28 11/25/17 08:28 11/25/17 08:28 Intake and Output: 11/25/17 11/25/17 06:59 18:59 Intake Total 550 1350 Output Total 300 1300 Balance 250 50 - Medications Medications: Current Medications Acetaminophen (Tylenol 325mg Tab) 650 mg PO Q4 PRN PRN Reason: Pain, Mild (1-3) Last Admin: 11/17/17 06:57 Dose: 650 mg Albuterol/Ipratropium (Duoneb 3 Mg/0.5 Mg (3 Ml) Ud) 3 ml INH RQ4 [facility] Last Admin: 11/25/17 13:36 Dose: 3 ml Clonazepam (Klonopin) 1 mg PO TID PRN PRN Reason: Anxiety Last Admin: 11/25/17 08:35 Dose: 1 mg Dextrose (Dextrose 50% Inj) 0 ml IV STAT PRN; Protocol PRN Reason: Hypoglycemia Protocol Dextrose (Glutose 15) 0 gm PO ONCE PRN; Protocol PRN Reason: Hypoglycemia Protocol Enoxaparin Sodium (Lovenox) 40 mg SC DAILY [facility] Last Admin: 11/25/17 09:25 Dose: 40 mg Gabapentin (Neurontin) 800 mg PO TID [facility] Last Admin: 11/25/17 13:32 Dose: 800 mg Glucagon (Glucagen Diagnostic Kit) 0 mg IM STAT PRN; Protocol PRN Reason: Hypoglycemia Protocol Guaifenesin (Robitussin) 200 mg PO Q4H [facility] Last Admin: 11/25/17 13:31 Dose: 200 mg Azithromycin 500 mg/ Sodium (Chloride) 250 mls @ 166.667 mls/hr IVPB Q24H [facility]; Protocol Last Admin: 11/25/17 13:33 Dose: 166.667 mls/hr Meropenem 1 gm/ Sodium (Chloride) 100 mls @ 100 mls/hr IVPB Q8H [facility]; Protocol Last Admin: 11/25/17 09:17 Dose: 100 mls/hr Insulin Aspart (Novolog) 0 unit SC [facility]; Protocol Last Admin: 11/25/17 12:02 Dose: 2 units Insulin Glargine (Lantus) 15 unit SC [facility] Last Admin: 11/24/17 22:00 Dose: 15 units Methylprednisolone (Solu-Medrol) 40 mg IVP Q12 [facility] Last Admin: 11/25/17 09:20 Dose: 40 mg Montelukast Sodium (Singulair) 10 mg PO [facility] Last Admin: 11/24/17 22:01 Dose: 10 mg Nystatin (Nystop Topical Powder) 1 applic TOP BID [facility] Last Admin: 11/25/17 09:27 Dose: 1 applic Pantoprazole Sodium (Protonix Ec Tab) 40 mg PO DAILY [facility] Last Admin: 11/25/17 09:24 Dose: 40 mg Phenol/Menthol (Phenaseptic 1.4% Throat [place]) 0 ml MT Q2 PRN PRN Reason: Other Last Admin: 11/17/17 01:22 Dose: 1 sponge Quetiapine Fumarate (Seroquel Xr) 400 mg PO BID [facility] Last Admin: 11/25/17 09:26 Dose: 400 mg Saliva Substitute (First Magic Mouthwash) 5 ml PO Q4 [facility] Last Admin: 11/25/17 12:03 Dose: 5 ml Sertraline HCl (Zoloft) 100 mg PO BID [facility] Last Admin: 11/25/17 09:26 Dose: 100 mg Trazodone HCl (Desyrel) 150 mg PO [facility] Last Admin: 11/24/17 22:00 Dose: 150 mg - Labs Labs: 11/22/17 11:19 11/22/17 11:19 - Constitutional Appears: Non-toxic, Chronically Ill - Head Exam Head Exam: NORMOCEPHALIC - Eye Exam Eye Exam: PERRL - ENT Exam ENT Exam: Mucous Membranes Dry - Neck Exam Neck Exam: absent: Lymphadenopathy - Respiratory Exam Respiratory Exam: Decreased Breath Sounds - Cardiovascular Exam Cardiovascular Exam: REGULAR RHYTHM, +S1, +S2 - GI/Abdominal Exam GI & Abdominal Exam: Distended, Soft. absent: Tenderness - Rectal Exam Rectal Exam: Deferred Assessment and Plan (1) COPD exacerbation Status: Acute (2) Chr obstructive pulmonary disease w/ acute lower respiratory infxn Status: Acute (3) Hypoxia Status: Acute (4) Pneumonia Status: Acute - Assessment and Plan (Free Text) Assessment: seen on rounds coughing less SOB moderate secretions trach collar in place IV rx renewed
--- NOTE | 2017-11-25 19:49 | CP.PCM.PN ---
Subjective - Subjective Subjective: Patient is coughing wheezing less short of breath she denies any nausea vomiting abdominal pain she has some bloating she has body aches tiredness anorexia, she denies any dysuria much due to she denies any sneezing itchy nose Lungs bilaterally decreased our entry positive rhonchi CVS S1 and S2 positive Abdomen soft nontender about some of the present [employer] awake alert oriented times three Assessment and plan Uncontrolled diabetes Acute bronchitis rule out pneumonia Bronchial asthma Hypertension Tracheostomy Plan Solu-Medrol does reduction tight blood sugar control Objective - Vital Signs/Intake and Output Vital Signs (last 24 hours): Temp Pulse Resp BP Pulse Ox 98.8 F 74 20 164/94 H 95 11/25/17 15:10 11/25/17 15:10 11/25/17 15:10 11/25/17 15:10 11/25/17 15:10 Intake and Output: 11/25/17 11/26/17 18:59 06:59 Intake Total 1350 Output Total 1300 Balance 50 - Medications Medications: Current Medications Acetaminophen (Tylenol 325mg Tab) 650 mg PO Q4 PRN PRN Reason: Pain, Mild (1-3) Last Admin: 11/25/17 18:19 Dose: 650 mg Albuterol/Ipratropium (Duoneb 3 Mg/0.5 Mg (3 Ml) Ud) 3 ml INH RQ4 [facility] Last Admin: 11/25/17 16:10 Dose: 3 ml Clonazepam (Klonopin) 1 mg PO TID PRN PRN Reason: Anxiety Last Admin: 11/25/17 18:19 Dose: 1 mg Dextrose (Dextrose 50% Inj) 0 ml IV STAT PRN; Protocol PRN Reason: Hypoglycemia Protocol Dextrose (Glutose 15) 0 gm PO ONCE PRN; Protocol PRN Reason: Hypoglycemia Protocol Enoxaparin Sodium (Lovenox) 40 mg SC DAILY [facility] Last Admin: 11/25/17 09:25 Dose: 40 mg Gabapentin (Neurontin) 800 mg PO TID [facility] Last Admin: 11/25/17 17:13 Dose: 800 mg Glucagon (Glucagen Diagnostic Kit) 0 mg IM STAT PRN; Protocol PRN Reason: Hypoglycemia Protocol Guaifenesin (Robitussin) 200 mg PO Q4H [facility] Last Admin: 11/25/17 17:22 Dose: 200 mg Azithromycin 500 mg/ Sodium (Chloride) 250 mls @ 166.667 mls/hr IVPB Q24H [facility]; Protocol Last Admin: 11/25/17 13:33 Dose: 166.667 mls/hr Meropenem 1 gm/ Sodium (Chloride) 100 mls @ 100 mls/hr IVPB Q8H [facility]; Protocol Last Admin: 11/25/17 17:30 Dose: 100 mls/hr Insulin Aspart (Novolog) 0 unit SC ACHS [facility]; Protocol Last Admin: 11/25/17 17:22 Dose: 6 units Insulin Glargine (Lantus) 15 unit SC [facility] Last Admin: 11/24/17 22:00 Dose: 15 units Methylprednisolone (Solu-Medrol) 40 mg IVP Q12 [facility] Last Admin: 11/25/17 09:20 Dose: 40 mg Montelukast Sodium (Singulair) 10 mg PO HS [facility] Last Admin: 11/24/17 22:01 Dose: 10 mg Nystatin (Nystop Topical Powder) 1 applic TOP BID [facility] Last Admin: 11/25/17 17:31 Dose: 1 applic Pantoprazole Sodium (Protonix Ec Tab) 40 mg PO DAILY [facility] Last Admin: 11/25/17 09:24 Dose: 40 mg Phenol/Menthol (Phenaseptic 1.4% Throat [place]) 0 ml MT Q2 PRN PRN Reason: Other Last Admin: 11/17/17 01:22 Dose: 1 sponge Quetiapine Fumarate (Seroquel Xr) 400 mg PO BID [facility] Last Admin: 11/25/17 17:13 Dose: 400 mg Saliva Substitute (First Magic Mouthwash) 5 ml PO Q4 [facility] Last Admin: 11/25/17 17:23 Dose: 5 ml Sertraline HCl (Zoloft) 100 mg PO BID [facility] Last Admin: 11/25/17 17:13 Dose: 100 mg Trazodone HCl (Desyrel) 150 mg PO HS [facility] Last Admin: 11/24/17 22:00 Dose: 150 mg - Labs Labs: 11/22/17 11:19 11/22/17 11:19
[2017-11-25] MEDS: (Lantus) Insulin Glargine, Recombinant SC SCH (21:52)
--- NOTE | 2017-11-25 22:19 | CP.PCM.PN ---
Subjective - Date & Time of Evaluation Date of Evaluation: 11/25/17 Time of Evaluation: 20:25 - Subjective Subjective: Patient seen and evaluated still has some dyspnea HPI: Patient is a 62 year old female with history of COPD, HTN, diastolic CHF, sp tracheostomy PMH: COPD, HTN, CHF, sp tracheostomy, anxiety, depression, seizures PSH: appendectomy, cholecystectomy, tracheostomy Home meds: As per MAR, Trazodone, Protonix, Singulair, Seroquel, Gabapentin, Lantus Social hx: no tobacco, alcohol or drug use. Allergies: ASA, Rocephn, Ibuprofen, Iodine, raspberry Physical Exam - Constitutional Appears: Non-toxic - Respiratory Exam Respiratory Exam: NORMAL BREATHING PATTERN Additional comments: With tracheostomy - Cardiovascular Exam Cardiovascular Exam: REGULAR RHYTHM, +S1, +S2 - GI/Abdominal Exam GI & Abdominal Exam: Normal Bowel Sounds - Extremities Exam Extremities exam: Negative for: pedal edema Assessment & Plan (1) COPD Assessment and Plan: Patient is a 62 year old female with history of COPD, HTN, CHF, sp tracheostomy (2) Diastolic CHF Assessment and Plan: Lasix as needed (3) HTN Assessment and Plan: Controlled Objective - Vital Signs/Intake and Output Vital Signs (last 24 hours): Temp Pulse Resp BP Pulse Ox 98.8 F 74 20 164/94 H 95 11/25/17 15:10 11/25/17 15:10 11/25/17 15:10 11/25/17 15:10 11/25/17 15:10 Intake and Output: 11/25/17 11/26/17 18:59 06:59 Intake Total 1350 Output Total 1300 Balance 50 - Medications Medications: Current Medications Acetaminophen (Tylenol 325mg Tab) 650 mg PO Q4 PRN PRN Reason: Pain, Mild (1-3) Last Admin: 11/25/17 18:19 Dose: 650 mg Albuterol/Ipratropium (Duoneb 3 Mg/0.5 Mg (3 Ml) Ud) 3 ml INH RQ4 [facility] Last Admin: 11/25/17 20:24 Dose: 3 ml Clonazepam (Klonopin) 1 mg PO TID PRN PRN Reason: Anxiety Last Admin: 11/25/17 18:19 Dose: 1 mg Dextrose (Dextrose 50% Inj) 0 ml IV STAT PRN; Protocol PRN Reason: Hypoglycemia Protocol Dextrose (Glutose 15) 0 gm PO ONCE PRN; Protocol PRN Reason: Hypoglycemia Protocol Enoxaparin Sodium (Lovenox) 40 mg SC DAILY [facility] Last Admin: 11/25/17 09:25 Dose: 40 mg Gabapentin (Neurontin) 800 mg PO TID [facility] Last Admin: 11/25/17 17:13 Dose: 800 mg Glucagon (Glucagen Diagnostic Kit) 0 mg IM STAT PRN; Protocol PRN Reason: Hypoglycemia Protocol Guaifenesin (Robitussin) 200 mg PO Q4H [facility] Last Admin: 11/25/17 21:55 Dose: 200 mg Azithromycin 500 mg/ Sodium (Chloride) 250 mls @ 166.667 mls/hr IVPB Q24H [facility]; Protocol Last Admin: 11/25/17 13:33 Dose: 166.667 mls/hr Meropenem 1 gm/ Sodium (Chloride) 100 mls @ 100 mls/hr IVPB Q8H [facility]; Protocol Last Admin: 11/25/17 17:30 Dose: 100 mls/hr Insulin Aspart (Novolog) 0 unit SC ACHS [facility]; Protocol Last Admin: 11/25/17 21:23 Dose: Not Given Insulin Glargine (Lantus) 15 unit SC [facility] Last Admin: 11/25/17 21:52 Dose: 15 units Methylprednisolone (Solu-Medrol) 40 mg IVP Q12 [facility] Last Admin: 11/25/17 21:52 Dose: 40 mg Montelukast Sodium (Singulair) 10 mg PO HS [facility] Last Admin: 11/25/17 21:52 Dose: 10 mg Nystatin (Nystop Topical Powder) 1 applic TOP BID [facility] Last Admin: 11/25/17 17:31 Dose: 1 applic Pantoprazole Sodium (Protonix Ec Tab) 40 mg PO DAILY [facility] Last Admin: 11/25/17 09:24 Dose: 40 mg Phenol/Menthol (Phenaseptic 1.4% Throat [place]) 0 ml MT Q2 PRN PRN Reason: Other Last Admin: 11/17/17 01:22 Dose: 1 sponge Quetiapine Fumarate (Seroquel Xr) 400 mg PO BID [facility] Last Admin: 11/25/17 17:13 Dose: 400 mg Saliva Substitute (First Magic Mouthwash) 5 ml PO Q4 [facility] Last Admin: 11/25/17 20:56 Dose: 5 ml Sertraline HCl (Zoloft) 100 mg PO BID [facility] Last Admin: 11/25/17 17:13 Dose: 100 mg Trazodone HCl (Desyrel) 150 mg PO [facility] Last Admin: 11/25/17 21:52 Dose: 150 mg - Labs Labs: 11/22/17 11:19 11/22/17 11:19
[2017-11-26] MEDS: Mag&Al/Simet/Diphen/Lido 237 ML KIT PO SCH ×7 (01:03→21:39)
[2017-11-26] MEDS: Albuterol-Ipratrop 3 mg / 0.5 (3 ml) UD INH SCH ×7 (01:26→23:59)
[2017-11-26] MEDS: Meropenem 1 GM in Sodium Chloride 0.9% 100 ML IVPB SCH ×3 (01:32→17:56)
[2017-11-26] MEDS: guaiFENesin 200 mg/10 ml Syrup UD PO SCH ×6 (01:32→21:49)
[2017-11-26] MEDS: (Novolog) Insulin Aspart, Recombinant 100 u/ml 10 ml vial SC SCH ×4 (08:30→21:37)
[2017-11-26] MEDS: Acetylcysteine 20% Inhal Soln (4ml) INH SCH ×2 (10:53→15:54)
[2017-11-26] MEDS: Enoxaparin 40 mg Syringe SC SCH (11:00)
[2017-11-26] MEDS: MethylPREDNISolone 40 mg Vial IVP SCH ×2 (11:00→21:36)
[2017-11-26] MEDS: Pantoprazole 40 mg EC Tab PO SCH (11:01)
[2017-11-26] MEDS: QUEtiapine 200 mg XR Tab PO SCH ×2 (11:02→17:49)
[2017-11-26] MEDS: Bacitracin Ointment 30 GM TUBE TOP SCH ×3 (11:07→21:40)
[2017-11-26] MEDS: Azithromycin 500 MG in Sodium Chloride 0.9% 250 ML IVPB SCH (14:54)
--- NOTE | 2017-11-26 18:08 | CP.PCM.PN ---
Subjective - Date & Time of Evaluation Date of Evaluation: 11/26/17 Time of Evaluation: 11:00 - Subjective Subjective: patient seen and examined Less cough and shortness of breath Status post trach, On trach collar Continue treatment for pneumonia repeat chest x-ray Continue present treatment Objective - Vital Signs/Intake and Output Vital Signs (last 24 hours): Temp Pulse Resp BP Pulse Ox 97.5 F L 76 21 115/73 98 11/26/17 16:00 11/26/17 16:00 11/26/17 16:00 11/26/17 16:00 11/26/17 16:00 Intake and Output: 11/26/17 11/26/17 06:59 18:59 Intake Total 620 Output Total 900 Balance -280 - Medications Medications: Current Medications Acetaminophen (Tylenol 325mg Tab) 650 mg PO Q4 PRN PRN Reason: Pain, Mild (1-3) Last Admin: 11/25/17 18:19 Dose: 650 mg Acetylcysteine (Acetylcysteine 20%) 4 ml INH Q6H [facility] Last Admin: 11/26/17 15:54 Dose: 4 ml Albuterol/Ipratropium (Duoneb 3 Mg/0.5 Mg (3 Ml) Ud) 3 ml INH RQ4 [facility] Last Admin: 11/26/17 15:54 Dose: 3 ml Bacitracin (Bacitracin) 0 gm TOP TID [facility]LA Last Admin: 11/26/17 14:53 Dose: 1 applic Clonazepam (Klonopin) 1 mg PO TID PRN PRN Reason: Anxiety Last Admin: 11/26/17 17:48 Dose: 1 mg Dextrose (Dextrose 50% Inj) 0 ml IV STAT PRN; Protocol PRN Reason: Hypoglycemia Protocol Dextrose (Glutose 15) 0 gm PO ONCE PRN; Protocol PRN Reason: Hypoglycemia Protocol Enoxaparin Sodium (Lovenox) 40 mg SC DAILY [facility] Last Admin: 11/26/17 11:00 Dose: 40 mg Gabapentin (Neurontin) 800 mg PO TID [facility] Last Admin: 11/26/17 17:49 Dose: 800 mg Glucagon (Glucagen Diagnostic Kit) 0 mg IM STAT PRN; Protocol PRN Reason: Hypoglycemia Protocol Guaifenesin (Robitussin) 200 mg PO Q4H [facility] Last Admin: 11/26/17 17:49 Dose: 200 mg Azithromycin 500 mg/ Sodium (Chloride) 250 mls @ 166.667 mls/hr IVPB Q24H [facility]; Protocol Last Admin: 11/26/17 14:54 Dose: 166.667 mls/hr Meropenem 1 gm/ Sodium (Chloride) 100 mls @ 100 mls/hr IVPB Q8H [facility]; Protocol Last Admin: 11/26/17 17:56 Dose: 100 mls/hr Insulin Aspart (Novolog) 0 unit SC ACHS [facility]; Protocol Last Admin: 11/26/17 17:57 Dose: 6 units Insulin Glargine (Lantus) 15 unit SC [facility] Last Admin: 11/25/17 21:52 Dose: 15 units Methylprednisolone (Solu-Medrol) 20 mg IVP Q12 [facility] Last Admin: 11/26/17 11:00 Dose: 20 mg Montelukast Sodium (Singulair) 10 mg PO HS [facility] Last Admin: 11/25/17 21:52 Dose: 10 mg Nystatin (Nystop Topical Powder) 1 applic TOP BID [facility] Last Admin: 11/26/17 17:59 Dose: 1 applic Pantoprazole Sodium (Protonix Ec Tab) 40 mg PO DAILY [facility] Last Admin: 11/26/17 11:01 Dose: 40 mg Phenol/Menthol (Phenaseptic 1.4% Throat [place]) 0 ml MT Q2 PRN PRN Reason: Other Last Admin: 11/17/17 01:22 Dose: 1 sponge Quetiapine Fumarate (Seroquel Xr) 400 mg PO BID [facility] Last Admin: 11/26/17 17:49 Dose: 400 mg Saliva Substitute (First Magic Mouthwash) 5 ml PO Q4 [facility] Last Admin: 11/26/17 18:02 Dose: Not Given Sertraline HCl (Zoloft) 100 mg PO BID [facility] Last Admin: 11/26/17 17:50 Dose: 100 mg Trazodone HCl (Desyrel) 150 mg PO [facility] Last Admin: 11/25/17 21:52 Dose: 150 mg - Labs Labs: 11/22/17 11:19 11/22/17 11:19 Assessment and Plan (1) Pneumonia Status: Acute (2) COPD exacerbation Status: Acute (3) Tracheostomy dependence Status: Acute
[2017-11-26] MEDS: (Lantus) Insulin Glargine, Recombinant SC SCH (21:38)
--- NOTE | 2017-11-26 22:11 | CP.PCM.PN ---
Objective - Vital Signs/Intake and Output Vital Signs (last 24 hours): Temp Pulse Resp BP Pulse Ox 97.5 F L 76 21 115/73 98 11/26/17 16:00 11/26/17 16:00 11/26/17 16:00 11/26/17 16:00 11/26/17 16:00 Intake and Output: 11/26/17 11/27/17 18:59 06:59 Intake Total 750 Balance 750 - Medications Medications: Current Medications Acetaminophen (Tylenol 325mg Tab) 650 mg PO Q4 PRN PRN Reason: Pain, Mild (1-3) Last Admin: 11/25/17 18:19 Dose: 650 mg Acetylcysteine (Acetylcysteine 20%) 4 ml INH Q6H [facility] Last Admin: 11/26/17 15:54 Dose: 4 ml Albuterol/Ipratropium (Duoneb 3 Mg/0.5 Mg (3 Ml) Ud) 3 ml INH RQ4 [facility] Last Admin: 11/26/17 20:16 Dose: 3 ml Bacitracin (Bacitracin) 0 gm TOP TID [facility] Last Admin: 11/26/17 21:40 Dose: 1 applic Clonazepam (Klonopin) 1 mg PO TID PRN PRN Reason: Anxiety Last Admin: 11/26/17 17:48 Dose: 1 mg Dextrose (Dextrose 50% Inj) 0 ml IV STAT PRN; Protocol PRN Reason: Hypoglycemia Protocol Dextrose (Glutose 15) 0 gm PO ONCE PRN; Protocol PRN Reason: Hypoglycemia Protocol Enoxaparin Sodium (Lovenox) 40 mg SC DAILY [facility] Last Admin: 11/26/17 11:00 Dose: 40 mg Gabapentin (Neurontin) 800 mg PO TID [facility] Last Admin: 11/26/17 17:49 Dose: 800 mg Glucagon (Glucagen Diagnostic Kit) 0 mg IM STAT PRN; Protocol PRN Reason: Hypoglycemia Protocol Guaifenesin (Robitussin) 200 mg PO Q4H [facility] Last Admin: 11/26/17 21:49 Dose: 200 mg Azithromycin 500 mg/ Sodium (Chloride) 250 mls @ 166.667 mls/hr IVPB Q24H [facility]; Protocol Last Admin: 11/26/17 14:54 Dose: 166.667 mls/hr Meropenem 1 gm/ Sodium (Chloride) 100 mls @ 100 mls/hr IVPB Q8H [facility]; Protocol Last Admin: 11/26/17 17:56 Dose: 100 mls/hr Insulin Aspart (Novolog) 0 unit SC ACHS [facility]; Protocol Last Admin: 11/26/17 21:37 Dose: Not Given Insulin Glargine (Lantus) 15 unit SC [facility] Last Admin: 11/26/17 21:38 Dose: 15 units Methylprednisolone (Solu-Medrol) 20 mg IVP Q12 [facility] Last Admin: 11/26/17 21:36 Dose: 20 mg Montelukast Sodium (Singulair) 10 mg PO HS [facility] Last Admin: 11/26/17 21:36 Dose: 10 mg Nystatin (Nystop Topical Powder) 1 applic TOP BID [facility] Last Admin: 11/26/17 17:59 Dose: 1 applic Pantoprazole Sodium (Protonix Ec Tab) 40 mg PO DAILY [facility] Last Admin: 11/26/17 11:01 Dose: 40 mg Phenol/Menthol (Phenaseptic 1.4% Throat [place]) 0 ml MT Q2 PRN PRN Reason: Other Last Admin: 11/17/17 01:22 Dose: 1 sponge Quetiapine Fumarate (Seroquel Xr) 400 mg PO BID [facility] Last Admin: 11/26/17 17:49 Dose: 400 mg Saliva Substitute (First Magic Mouthwash) 5 ml PO Q4 [facility] Last Admin: 11/26/17 21:39 Dose: Not Given Sertraline HCl (Zoloft) 100 mg PO BID [facility] Last Admin: 11/26/17 17:50 Dose: 100 mg Trazodone HCl (Desyrel) 150 mg PO [facility] Last Admin: 11/26/17 21:39 Dose: 150 mg - Labs Labs: 11/22/17 11:19 11/22/17 11:19
[2017-11-27] MEDS: Mag&Al/Simet/Diphen/Lido 237 ML KIT PO SCH ×5 (00:10→17:25)
--- NOTE | 2017-11-27 00:22 | CP.PCM.PN ---
Subjective - Date & Time of Evaluation Date of Evaluation: 11/26/17 Time of Evaluation: 08:35 - Subjective Subjective: Patient seen and evaluated Still some dyspnea and cough Objective - Vital Signs/Intake and Output Vital Signs (last 24 hours): Temp Pulse Resp BP Pulse Ox 97.5 F L 76 21 115/73 98 11/26/17 16:00 11/26/17 16:00 11/26/17 16:00 11/26/17 16:00 11/26/17 16:00 Intake and Output: 11/26/17 11/27/17 18:59 06:59 Intake Total 750 Balance 750 - Medications Medications: Current Medications Acetaminophen (Tylenol 325mg Tab) 650 mg PO Q4 PRN PRN Reason: Pain, Mild (1-3) Last Admin: 11/25/17 18:19 Dose: 650 mg Acetylcysteine (Acetylcysteine 20%) 4 ml INH Q6H [facility] Last Admin: 11/26/17 15:54 Dose: 4 ml Albuterol/Ipratropium (Duoneb 3 Mg/0.5 Mg (3 Ml) Ud) 3 ml INH RQ4 [facility] Last Admin: 11/26/17 23:59 Dose: 3 ml Bacitracin (Bacitracin) 0 gm TOP TID [facility] Last Admin: 11/26/17 21:40 Dose: 1 applic Clonazepam (Klonopin) 1 mg PO TID PRN PRN Reason: Anxiety Last Admin: 11/26/17 17:48 Dose: 1 mg Dextrose (Dextrose 50% Inj) 0 ml IV STAT PRN; Protocol PRN Reason: Hypoglycemia Protocol Dextrose (Glutose 15) 0 gm PO ONCE PRN; Protocol PRN Reason: Hypoglycemia Protocol Enoxaparin Sodium (Lovenox) 40 mg SC DAILY [facility] Last Admin: 11/26/17 11:00 Dose: 40 mg Gabapentin (Neurontin) 800 mg PO TID [facility] Last Admin: 11/26/17 17:49 Dose: 800 mg Glucagon (Glucagen Diagnostic Kit) 0 mg IM STAT PRN; Protocol PRN Reason: Hypoglycemia Protocol Guaifenesin (Robitussin) 200 mg PO Q4H [facility] Last Admin: 11/26/17 21:49 Dose: 200 mg Meropenem 1 gm/ Sodium (Chloride) 100 mls @ 100 mls/hr IVPB Q8H [facility]; Protocol Last Admin: 11/26/17 17:56 Dose: 100 mls/hr Insulin Aspart (Novolog) 0 unit SC [facility]; Protocol Last Admin: 11/26/17 21:37 Dose: Not Given Insulin Glargine (Lantus) 15 unit SC [facility] Last Admin: 11/26/17 21:38 Dose: 15 units Montelukast Sodium (Singulair) 10 mg PO HS [facility] Last Admin: 11/26/17 21:36 Dose: 10 mg Nystatin (Nystop Topical Powder) 1 applic TOP BID [facility] Last Admin: 11/26/17 17:59 Dose: 1 applic Pantoprazole Sodium (Protonix Ec Tab) 40 mg PO DAILY [facility] Last Admin: 11/26/17 11:01 Dose: 40 mg Phenol/Menthol (Phenaseptic 1.4% Throat [place]) 0 ml MT Q2 PRN PRN Reason: Other Last Admin: 11/17/17 01:22 Dose: 1 sponge Prednisone (Prednisone Tab) 20 mg PO DAILY [facility] Quetiapine Fumarate (Seroquel Xr) 400 mg PO BID [facility] Last Admin: 11/26/17 17:49 Dose: 400 mg Saliva Substitute (First Magic Mouthwash) 5 ml PO Q4 [facility] Last Admin: 11/27/17 00:10 Dose: 5 ml Sertraline HCl (Zoloft) 100 mg PO BID [facility] Last Admin: 11/26/17 17:50 Dose: 100 mg Trazodone HCl (Desyrel) 150 mg PO [facility] Last Admin: 11/26/17 21:39 Dose: 150 mg - Labs Labs: 11/22/17 11:19 11/22/17 11:19
[2017-11-27 01:06] VITALS: RESP 20
[2017-11-27] MEDS: Meropenem 1 GM in Sodium Chloride 0.9% 100 ML IVPB SCH ×2 (01:10→11:15)
[2017-11-27] MEDS: guaiFENesin 200 mg/10 ml Syrup UD PO SCH ×5 (01:15→17:22)
[2017-11-27] MEDS: Acetylcysteine 20% Inhal Soln (4ml) INH SCH ×2 (03:14→08:45)
[2017-11-27] MEDS: Albuterol-Ipratrop 3 mg / 0.5 (3 ml) UD INH SCH ×3 (03:15→13:05)
[2017-11-27 06:33] LABS: HEMOGLOBIN 11.2 g/dL (11.0-16.0); MEAN CELL VOLUME 78.4 fL (81.0-99.0); MEAN CORPUSCULAR HEMOGLOBIN 24.9 pg (27.0-31.0); MEAN CORPUSCULAR HGB CONC 31.8 g/dL (33.0-37.0); MEAN PLATELET VOLUME 9.7 fL (7.2-11.7); RBC 4.49 Mil/uL (3.80-5.20); RED CELL DISTRIBUTION WIDTH 15.7 % (11.5-14.5); WHITE BLOOD COUNT 16.8 K/uL (4.8-10.8)
[2017-11-27 07:47] VITALS: TEMP 98.7
[2017-11-27 08:09] LABS: BLOOD UREA NITROGEN 19 mg/dL (7-17); CALCIUM 8.9 mg/dl (8.6-10.4); GFR NON-AFRICAN AMERICAN > 60
[2017-11-27] MEDS: (Novolog) Insulin Aspart, Recombinant 100 u/ml 10 ml vial SC SCH ×3 (08:18→17:23)
[2017-11-27] MEDS: QUEtiapine 200 mg XR Tab PO SCH ×2 (10:59→17:23)
[2017-11-27] MEDS: Pantoprazole 40 mg EC Tab PO SCH (10:59)
[2017-11-27] MEDS: Enoxaparin 40 mg Syringe SC SCH (10:59)
[2017-11-27] MEDS: Bacitracin Ointment 30 GM TUBE TOP SCH ×2 (11:01→14:52)
--- NOTE | 2017-11-27 13:20 | CP.PCM.PN ---
Subjective - Date & Time of Evaluation Date of Evaluation: 11/27/17 Time of Evaluation: 08:00 - Subjective Subjective: no fever weak bedbound Objective - Vital Signs/Intake and Output Vital Signs (last 24 hours): Temp Pulse Resp BP Pulse Ox 98.7 F 96 H 20 128/69 97 11/27/17 07:42 11/27/17 07:42 11/27/17 07:42 11/27/17 07:42 11/27/17 07:42 Intake and Output: 11/27/17 11/27/17 06:59 18:59 Intake Total 360 Output Total 500 Balance -140 - Medications Medications: Current Medications Acetaminophen (Tylenol 325mg Tab) 650 mg PO Q4 PRN PRN Reason: Pain, Mild (1-3) Last Admin: 11/25/17 18:19 Dose: 650 mg Acetylcysteine (Acetylcysteine 20%) 4 ml INH Q6H [facility] Last Admin: 11/27/17 08:45 Dose: 4 ml Albuterol/Ipratropium (Duoneb 3 Mg/0.5 Mg (3 Ml) Ud) 3 ml INH RQ4 [facility] Last Admin: 11/27/17 13:05 Dose: 3 ml Bacitracin (Bacitracin) 0 gm TOP TID [facility] Last Admin: 11/27/17 11:01 Dose: 1 applic Clonazepam (Klonopin) 1 mg PO TID PRN PRN Reason: Anxiety Last Admin: 11/27/17 11:15 Dose: 1 mg Dextrose (Dextrose 50% Inj) 0 ml IV STAT PRN; Protocol PRN Reason: Hypoglycemia Protocol Dextrose (Glutose 15) 0 gm PO ONCE PRN; Protocol PRN Reason: Hypoglycemia Protocol Enoxaparin Sodium (Lovenox) 40 mg SC DAILY [facility] Last Admin: 11/27/17 10:59 Dose: 40 mg Gabapentin (Neurontin) 800 mg PO TID [facility] Last Admin: 11/27/17 11:00 Dose: 800 mg Glucagon (Glucagen Diagnostic Kit) 0 mg IM STAT PRN; Protocol PRN Reason: Hypoglycemia Protocol Guaifenesin (Robitussin) 200 mg PO Q4H [facility] Last Admin: 11/27/17 11:15 Dose: 200 mg Meropenem 1 gm/ Sodium (Chloride) 100 mls @ 100 mls/hr IVPB Q8H [facility]; Protocol Last Admin: 11/27/17 11:15 Dose: 100 mls/hr Insulin Aspart (Novolog) 0 unit SC [facility]; Protocol Last Admin: 11/27/17 12:30 Dose: 2 units Insulin Glargine (Lantus) 15 unit SC [facility] Last Admin: 11/26/17 21:38 Dose: 15 units Montelukast Sodium (Singulair) 10 mg PO [facility] Last Admin: 11/26/17 21:36 Dose: 10 mg Nystatin (Nystop Topical Powder) 1 applic TOP BID [facility] Last Admin: 11/27/17 11:02 Dose: 1 applic Pantoprazole Sodium (Protonix Ec Tab) 40 mg PO DAILY [facility] Last Admin: 11/27/17 10:59 Dose: 40 mg Phenol/Menthol (Phenaseptic 1.4% Throat [place]) 0 ml MT Q2 PRN PRN Reason: Other Last Admin: 11/17/17 01:22 Dose: 1 sponge Prednisone (Prednisone Tab) 20 mg PO DAILY [facility] Last Admin: 11/27/17 10:59 Dose: 20 mg Quetiapine Fumarate (Seroquel Xr) 400 mg PO BID [facility] Last Admin: 11/27/17 10:59 Dose: 400 mg Saliva Substitute (First Magic Mouthwash) 5 ml PO Q4 [facility] Last Admin: 11/27/17 12:30 Dose: 5 ml Sertraline HCl (Zoloft) 100 mg PO BID [facility] Last Admin: 11/27/17 11:00 Dose: 100 mg Trazodone HCl (Desyrel) 150 mg PO [facility] Last Admin: 11/26/17 21:39 Dose: 150 mg - Labs Labs: 11/27/17 06:27 11/27/17 06:27 - Constitutional Appears: Non-toxic, Chronically Ill - Head Exam Head Exam: NORMOCEPHALIC - Eye Exam Eye Exam: absent: Scleral icterus - ENT Exam ENT Exam: Mucous Membranes Dry - Neck Exam Neck Exam: absent: Lymphadenopathy - Respiratory Exam Respiratory Exam: Decreased Breath Sounds - Cardiovascular Exam Cardiovascular Exam: REGULAR RHYTHM - GI/Abdominal Exam GI & Abdominal Exam: Distended, Soft - Rectal Exam Rectal Exam: Deferred - Exam Exam: NORMAL INSPECTION Assessment and Plan (1) COPD exacerbation Status: Acute (2) Chr obstructive pulmonary disease w/ acute lower respiratory infxn Status: Acute (3) Hypoxia Status: Acute (4) Pneumonia Status: Acute
[2017-11-27 16:02] VITALS: BP 119/77; PULSE 87; O2SAT 95
--- NOTE | 2017-11-27 16:42 | PCM.HF ---
Heart Failure Core Measure - Heart Failure Ejection Fraction: 40 % or Greater (EF 68%) SHAWNA Inhibitor Prescribed: No Contraindication/Reason for not providing: Low BP Beta-Facundo Prescribed: None Contraindication/Reason for not providing: COPD Angiotensin II Receptor Facundo Prescribed: No Contraindication/Reason for not providing: Low BP AnticoagulationTherapy for Atrial Fibrillation/Atrialflutter: No Contraindication/Reason for not providing: NO afib Aldosterone Antagonist Prescribed: No Contraindication/Reason for not providing: low BP Hydralazine Nitrate Prescribed: No Contraindication/Reason for not providing: EF >40% Implantable Cardioverter Defibrillator Therapy: No Contraindication/Reason for not providing: EF >40% Cardiac Resynchronization Therapy Prescribed: No Contraindication/Reason for not providing: NOT INDICATED - Follow up Will be discharged to: Home Follow Up Date (must be within 7 days from discharge): 12/03/17
--- NOTE | 2017-11-27 16:50 | CP.PCM.PN ---
Subjective - Date & Time of Evaluation Date of Evaluation: 11/27/17 Time of Evaluation: 11:00 - Subjective Subjective: alert, oriented, tracheostomy site intact, secretions improving, NAD. Objective - Vital Signs/Intake and Output Vital Signs (last 24 hours): Temp Pulse Resp BP Pulse Ox 98.7 F 87 20 119/77 95 11/27/17 16:00 11/27/17 16:00 11/27/17 16:00 11/27/17 16:00 11/27/17 16:00 Intake and Output: 11/27/17 11/27/17 06:59 18:59 Intake Total 910 Output Total 500 Balance 410 - Medications Medications: Current Medications Acetaminophen (Tylenol 325mg Tab) 650 mg PO Q4 PRN PRN Reason: Pain, Mild (1-3) Last Admin: 11/25/17 18:19 Dose: 650 mg Acetylcysteine (Acetylcysteine 20%) 4 ml INH Q6H [facility] Last Admin: 11/27/17 08:45 Dose: 4 ml Albuterol/Ipratropium (Duoneb 3 Mg/0.5 Mg (3 Ml) Ud) 3 ml INH RQ4 [facility] Last Admin: 11/27/17 13:05 Dose: 3 ml Bacitracin (Bacitracin) 0 gm TOP TID [facility] Last Admin: 11/27/17 14:52 Dose: 1 applic Clonazepam (Klonopin) 1 mg PO TID PRN PRN Reason: Anxiety Last Admin: 11/27/17 11:15 Dose: 1 mg Dextrose (Dextrose 50% Inj) 0 ml IV STAT PRN; Protocol PRN Reason: Hypoglycemia Protocol Dextrose (Glutose 15) 0 gm PO ONCE PRN; Protocol PRN Reason: Hypoglycemia Protocol Gabapentin (Neurontin) 800 mg PO TID [facility] Last Admin: 11/27/17 14:50 Dose: 800 mg Glucagon (Glucagen Diagnostic Kit) 0 mg IM STAT PRN; Protocol PRN Reason: Hypoglycemia Protocol Guaifenesin (Robitussin) 200 mg PO Q4H [facility] Last Admin: 11/27/17 14:50 Dose: 200 mg Meropenem 1 gm/ Sodium (Chloride) 100 mls @ 100 mls/hr IVPB Q8H [facility]; Protocol Last Admin: 11/27/17 11:15 Dose: 100 mls/hr Insulin Aspart (Novolog) 0 unit SC ACHS [facility]; Protocol Last Admin: 11/27/17 12:30 Dose: 2 units Insulin Glargine (Lantus) 15 unit SC [facility] Last Admin: 11/26/17 21:38 Dose: 15 units Montelukast Sodium (Singulair) 10 mg PO HS [facility] Last Admin: 11/26/17 21:36 Dose: 10 mg Nystatin (Nystop Topical Powder) 1 applic TOP BID [facility] Last Admin: 11/27/17 11:02 Dose: 1 applic Pantoprazole Sodium (Protonix Ec Tab) 40 mg PO DAILY [facility] Last Admin: 11/27/17 10:59 Dose: 40 mg Phenol/Menthol (Phenaseptic 1.4% Throat [place]) 0 ml MT Q2 PRN PRN Reason: Other Last Admin: 11/17/17 01:22 Dose: 1 sponge Prednisone (Prednisone Tab) 20 mg PO DAILY [facility] Last Admin: 11/27/17 10:59 Dose: 20 mg Quetiapine Fumarate (Seroquel Xr) 400 mg PO BID [facility] Last Admin: 11/27/17 10:59 Dose: 400 mg Saliva Substitute (First Magic Mouthwash) 5 ml PO Q4 [facility] Last Admin: 11/27/17 12:30 Dose: 5 ml Sertraline HCl (Zoloft) 100 mg PO BID [facility] Last Admin: 11/27/17 11:00 Dose: 100 mg Trazodone HCl (Desyrel) 150 mg PO [facility] Last Admin: 11/26/17 21:39 Dose: 150 mg - Labs Labs: 11/27/17 06:27 11/27/17 06:27 Assessment and Plan - Assessment and Plan (Free Text) Assessment: 62 year old female, admitted with COPD exacerbation, seen and examined. Alert and oriented x3, trach collar in use, breathing comfortably, no acute distress. Discussed with DR Rosado and DR Khan, plan to discharge home today on tapering prednisone dose. Home care, VNS will be resumed. Advised to follow up with PMD in 1 week PICC line removed from the left arm, no bleeding noted.
--- NOTE | 2017-11-27 21:41 | CP.PCM.PN ---
Subjective - Date & Time of Evaluation Date of Evaluation: 11/27/17 Time of Evaluation: 08:30 - Subjective Subjective: Patient seen and evaluated Feels better HPI: Patient is a 62 year old female with history of COPD, HTN, diastolic CHF, sp tracheostomy PMH: COPD, HTN, CHF, sp tracheostomy, anxiety, depression, seizures PSH: appendectomy, cholecystectomy, tracheostomy Home meds: As per MAR, Trazodone, Protonix, Singulair, Seroquel, Gabapentin, L antus Social hx: no tobacco, alcohol or drug use. Allergies: ASA, Rocephn, Ibuprofen, Iodine, raspberry Physical Exam - Constitutional Appears: Non-toxic - Respiratory Exam Respiratory Exam: NORMAL BREATHING PATTERN Additional comments: With tracheostomy - Cardiovascular Exam Cardiovascular Exam: REGULAR RHYTHM, +S1, +S2 - GI/Abdominal Exam GI & Abdominal Exam: Normal Bowel Sounds - Extremities Exam Extremities exam: Negative for: pedal edema Assessment & Plan (1) COPD Assessment and Plan: Patient is a 62 year old female with history of COPD, HTN, CHF, sp tracheostomy (2) Diastolic CHF Assessment and Plan: Lasix as needed (3) HTN Assessment and Plan: Controlled Objective - Vital Signs/Intake and Output Vital Signs (last 24 hours): Temp Pulse Resp BP Pulse Ox 98.7 F 87 20 119/77 95 11/27/17 16:00 11/27/17 16:00 11/27/17 16:00 11/27/17 16:00 11/27/17 16:00 Intake and Output: 11/27/17 11/28/17 18:59 06:59 Intake Total 910 Output Total 500 Balance 410 - Labs Labs: 11/27/17 06:27 11/27/17 06:27
--- NOTE | 2017-11-27 22:19 | CP.PCM.DIS ---
Provider - Provider Date of Admission: 11/13/17 23:59 Attending physician: Ad Khan MD Hospital Course - Lab Results Lab Results: Micro Results 11/20/17 12:45 Nose MRSA Culture - Final MRSA DETECTED 11/13/17 22:01 Blood-Venous Blood Culture - Final NO GROWTH AFTER 5 DAYS 11/13/17 22:01 Blood-Venous Gram Stain - Final TEST NOT PERFORMED 11/13/17 22:31 Blood-Venous Blood Culture - Final NO GROWTH AFTER 5 DAYS 11/13/17 22:31 Blood-Venous Gram Stain - Final TEST NOT PERFORMED 11/14/17 09:58 Naris MRSA Culture (Admit) - Final MRSA DETECTED 11/14/17 19:01 Sputum Induced Gram Stain - Final 11/14/17 19:01 Sputum Induced Sputum Culture - Final Proteus Mirabilis Most Recent Lab Values WBC 16.8 K/uL (4.8-10.8) H 11/27/17 06:27 RBC 4.49 Mil/uL (3.80-5.20) 11/27/17 06:27 Hgb 11.2 g/dL (11.0-16.0) 11/27/17 06:27 Hct 35.2 % (34.0-47.0) 11/27/17 06:27 MCV 78.4 fL (81.0-99.0) L 11/27/17 06:27 MCH 24.9 pg (27.0-31.0) L 11/27/17 06:27 MCHC 31.8 g/dL (33.0-37.0) L 11/27/17 06:27 RDW 15.7 % (11.5-14.5) H 11/27/17 06:27 Plt Count 113 K/uL (130-400) L 11/27/17 06:27 MPV 9.7 fL (7.2-11.7) 11/27/17 06:27 Neut % (Auto) 90.3 % (50.0-75.0) H 11/22/17 11:19 Lymph % (Auto) 5.4 % (20.0-40.0) L 11/22/17 11:19 Wirt % (Auto) 3.7 % (0.0-10.0) 11/22/17 11:19 Eos % (Auto) 0.1 % (0.0-4.0) 11/22/17 11:19 Baso % (Auto) 0.5 % (0.0-2.0) 11/22/17 11:19 Neut # (Auto) 11.7 K/uL (1.8-7.0) H 11/22/17 11:19 Lymph # (Auto) 0.7 K/uL (1.0-4.3) L 11/22/17 11:19 Wirt # (Auto) 0.5 K/uL (0.0-0.8) 11/22/17 11:19 Eos # (Auto) 0.0 K/uL (0.0-0.7) 11/22/17 11:19 Baso # (Auto) 0.1 K/uL (0.0-0.2) 11/22/17 11:19 Neutrophils % (Manual) 92 % (50-75) H 11/22/17 11:19 Lymphocytes % (Manual) 3 % (20-40) L 11/22/17 11:19 Monocytes % (Manual) 5 % (0-10) 11/22/17 11:19 Toxic Granulation Present 11/17/17 06:26 Platelet Estimate Slightly decreased (NORMAL) L 11/22/17 11:19 Large Platelets Present 11/17/17 06:26 Polychromasia Slight 11/22/17 11:19 Hypochromasia (manual) Slight 11/22/17 11:19 Anisocytosis (manual) Slight 11/22/17 11:19 Microcytosis (manual) Slight 11/17/17 06:26 pO2 37 mm/Hg (30-55) 11/13/17 22:15 VBG pH 7.36 (7.32-7.43) 11/13/17 22:15 VBG pCO2 54 mmHg (40-60) 11/13/17 22:15 VBG HCO3 27.0 mmol/L 11/13/17 22:15 VBG Total CO2 32.2 mmol/L (22-28) H 11/13/17 22:15 VBG O2 Sat (Calc) 71.8 % (40-65) H 11/13/17 22:15 VBG Base Excess 3.7 mmol/L (0.0-2.0) H 11/13/17 22:15 VBG Potassium 4.0 mmol/L (3.6-5.2) 11/13/17 22:15 Sodium 140.0 mmol/l (132-148) 11/13/17 22:15 Chloride 106.0 mmol/L (98-107) 11/13/17 22:15 Glucose 114 mg/dl (65-105) H 11/13/17 22:15 Lactate 1.1 mmol/L (0.7-2.1) 11/13/17 22:15 Sodium 143 mmol/L (132-148) 11/27/17 06:27 Potassium 4.2 mmol/L (3.6-5.2) 11/27/17 06:27 Chloride 100 mmol/L (98-107) 11/27/17 06:27 Carbon Dioxide 36 mmol/L (22-30) H 11/27/17 06:27 Anion Gap 12 (10-20) 11/27/17 06:27 BUN 19 mg/dL (7-17) H 11/27/17 06:27 Creatinine 0.8 mg/dL (0.7-1.2) 11/27/17 06:27 Est GFR ( Amer) > 60 11/27/17 06:27 Est GFR (Non-Af Amer) > 60 11/27/17 06:27 POC Glucose (mg/dL) 295 mg/dL (65-110) H 11/27/17 16:29 Random Glucose 277 mg/dL (65-105) H 11/27/17 06:27 Calcium 8.9 mg/dl (8.6-10.4) 11/27/17 06:27 Phosphorus 3.4 mg/dL (2.5-4.5) 11/19/17 06:29 Magnesium 2.0 mg/dL (1.6-2.3) 11/19/17 06:29 Total Bilirubin 0.4 mg/dL (0.2-1.3) 11/19/17 06:29 AST 18 U/L (14-36) 11/19/17 06:29 ALT 21 U/L (9-52) 11/19/17 06:29 Alkaline Phosphatase 91 U/L (38-126) 11/19/17 06:29 Troponin I < 0.0120 ng/mL (0.00-0.120) 11/13/17 22:07 NT-Pro-B Natriuret Pep 113 pg/mL (0-900) 11/13/17 22:07 Total Protein 7.6 g/dL (6.3-8.3) 11/19/17 06:29 Albumin 3.7 g/dL (3.5-5.0) 11/19/17 06:29 Globulin 4.0 gm/dL (2.2-3.9) H 11/19/17 06:29 Albumin/Globulin Ratio 0.9 (1.0-2.1) L 11/19/17 06:29 Lipase 26 U/L (23-300) 11/13/17 22:45 Venous Blood Potassium 4.0 mmol/L (3.6-5.2) 11/13/17 22:15 Vancomycin Trough 12.0 ug/mL (5.0-10.0) H 11/16/17 11:00 Mycoplasma pneumon IgM Negative (NEGATIVE) 11/14/17 18:58 Discharge Exam - Head Exam Head Exam: NORMOCEPHALIC Discharge Plan - Discharge Medications Prescriptions: predniSONE [Prednisone] 10 mg PO DAILY #11 tab guaiFENesin [Robitussin] 200 mg PO Q6H #200 ml - Follow Up Plan Condition: GOOD Disposition: HOME/ ROUTINE Instructions: COPD Including Emphysema (DC), Guaifenesin, Prednisone Additional Instructions: Discharge home as per , follow up with PMD in 1 week home care /home PT /VNS trach collar at home prednisone tapering dose tracheostomy suctioning / home oxygen as needed Referrals: Ad Khan MD [Staff Provider] -
--- NOTE | 2017-11-28 00:15 | PN ---
DATE: 11/27/2017 SUBJECTIVE: The patient, Carin Moser, is feeling better. She has less cough, less shortness of breath, less wheezing. Low temperature. Tolerating diet well. Wants to go home. PHYSICAL EXAMINATION: VITAL SIGNS: Blood pressure 115/73, pulse 76, respiratory rate 21, temperature 97.5. LUNGS: Bilateral rhonchi scattered. Good air entry. CARDIOVASCULAR SYSTEM: S1 and S2, regular. ABDOMEN: Soft and nontender. Bowel sounds are positive. Trach site is clean. ASSESSMENT: 1. Tracheobronchitis, rule out pneumonia. 2. Diabetes. 3. Hypertension. 4. Tracheostomy. PLAN: Continue medical management. Monitor the patient. Ad Khan MD
--- NOTE | 2017-11-28 05:38 | HP ---
HISTORY OF PRESENT ILLNESS: The patient, Carin Moser, is for discharge. The patient is afebrile, less cough, less congestion. No nausea, vomiting. No fever. She feels much better. PHYSICAL EXAMINATION: VITAL SIGNS: Blood pressure is 119/77, pulse 87, respiratory rate 20, and temperature 98.7. LUNGS: Bilaterally clear. No rales. No rhonchi. CARDIOVASCULAR SYSTEM: S1 and S2, regular. No heave. No thrill. ABDOMEN: Soft, nontender. Bowel sounds are positive. ASSESSMENT: 1. Exacerbation of bronchial asthma. 2. Tracheobronchitis. 3. Chronic tracheostomy with complication. 4. Diabetes. PLAN: Medical management. Monitor the patient. Ad Khan MD
== END 2017-11-27 19:45 | disposition home health service (06) | DRG 882 ==
LOC: C.ER 21:46 → C.9E 23:59 → C.6T 11-14 07:34 → C.9I 11-14 09:24 → C.3T 11-20 10:56
PROVIDERS: ADMIT Internal Medicine; ATTEND Internal Medicine
PROC: 02HV33Z Insertion of Infusion Device into Superior Vena Cava, Percutaneous Approach (ICD-10-PCS; 2017-11-14)
PROC: 5A1945Z Respiratory Ventilation, 24-96 Consecutive Hours (ICD-10-PCS; principal; 2017-11-15)
DX: J44.0 Chronic obstructive pulmonary disease with (acute) lower respiratory infection (principal); I50.32 Chronic diastolic (congestive) heart failure; J96.21 Acute and chronic respiratory failure with hypoxia; J18.9 Pneumonia, unspecified organism; I11.0 Hypertensive heart disease with heart failure; N39.0 Urinary tract infection, site not specified; E11.65 Type 2 diabetes mellitus with hyperglycemia; E86.0 Dehydration; J45.31 Mild persistent asthma with (acute) exacerbation; J44.1 Chronic obstructive pulmonary disease with (acute) exacerbation; J20.9 Acute bronchitis, unspecified; Z16.24 Resistance to multiple antibiotics; D64.9 Anemia, unspecified; E66.01 Morbid (severe) obesity due to excess calories; F31.9 Bipolar disorder, unspecified; F41.9 Anxiety disorder, unspecified; G40.909 Epilepsy, unspecified, not intractable, without status epilepticus; F29 Unspecified psychosis not due to a substance or known physiological condition; G47.30 Sleep apnea, unspecified; Z87.01 Personal history of pneumonia (recurrent); Z93.0 Tracheostomy status; Z99.81 Dependence on supplemental oxygen; Z79.4 Long term (current) use of insulin; Z68.41 Body mass index [BMI] 40.0-44.9, adult

== ENCOUNTER 2017-11-29 23:23 | Inpatient (IN) | payer OTHER ==
[2017-11-29 23:23] VITALS: BMI 45.6
[2017-11-29] MEDS ORDERED: Acetylcysteine 20% Inhal Soln (4ml) INH STA (23:48)
[2017-11-29] MEDS ORDERED: Albuterol 0.083% Inhal Sol (2.5 mg/3 mL) UD IH STA (23:51)
[2017-11-29] MEDS ORDERED: Albuterol-Ipratrop 3 mg / 0.5 (3 ml) UD ONE (23:51)
[2017-11-29] MEDS ORDERED: Albuterol-Ipratrop 3 mg / 0.5 (3 ml) UD INH STA (23:51)
--- NOTE | 2017-11-29 23:54 | C.PDOC ---
History Of Present Illness Patient BIBA for evaluation of SOB and increased secretions coming from her tracheostomy site. Patient has a PMhx of asthma/COPD, HTN, pneumonia, CALIXTO, bipolar disorder. Patient was discharged from [facility] on 11/27/17, diagn osed with bronchial asthma, tracheobronchitis and discharged with Rxs for Prednisone 10mg daily, Guafenesin 200mg PRN. Patient denies fever, chest pain; history limited due to SOB. Time Seen by Provider: 11/29/17 23:25 Chief Complaint (Nursing): Shortness Of Breath History Per: Patient, EMS History/Exam Limitations: clinical condition Onset/Duration Of Symptoms: Hrs Current Symptoms Are (Timing): Still Present Past Medical History Reviewed: Historical Data, Nursing Documentation, Vital Signs Vital Signs: Last Vital Signs Temp 99.7 F H 11/29/17 23:39 Pulse 104 H 11/29/17 23:39 Resp 18 11/29/17 23:39 BP 163/100 H 11/29/17 23:39 Pulse Ox 100 11/29/17 23:39 - Medical History PMH: Anxiety, Asthma, Bipolar Disorder, Bronchitis, CHF, COPD (Emphysema,), Depression, Emphysema, Gall Bladder Disease, HTN, Pneumonia, Seizures, Sleep Apnea Surgical History: Appendectomy, Cholecystectomy - [facility] Procedures ASSISTANCE WITH RESPIRATORY VENTILATION, <24 HRS, CPAP (03/14/16) CENTRAL VENOUS CATHETER PLACEMENT WITH GUIDANCE (10/24/14) CHANGE TRACHEOSTOMY DEVICE IN TRACHEA, EXTERNAL APPROACH (07/03/17) CONTINUOUS INVASIVE MECHANICAL VENTILATION <96 CONSEC HRS (03/07/14) ENTERAL INFUSION OF CONCENTRATED NUT. SUBSTANCES (09/17/12) INSERT ENDOTRACHEAL TUBE (09/17/12) INSERTION OF ENDOTRACHEAL AIRWAY INTO TRACHEA, VIA OPENING (06/12/17) INSERTION OF INFUSION DEV INTO SUP VENA CAVA, PERC APPROACH (11/13/17) INSERTION OF INFUSION DEVICE INTO UPPER VEIN, PERC APPROACH (10/04/17) INTRODUCE OF OTH THERAP SUBST INTO RESP TRACT, VIA OPENING (05/03/15) INTRODUCTION OF NUTRITIONAL INTO UP GI, VIA OPENING (06/12/17) NEBULIZER THERAPY (09/17/12) REMOVAL OF TRACHEOSTOMY DEVICE FROM TRACHEA, ENERGY EFFICIENCY FINANCE MANAGER APPROACH (06/12/17) RESPIRATORY VENTILATION, 24-96 CONSECUTIVE HOURS (11/13/17) RESPIRATORY VENTILATION, GREATER THAN 96 CONSECUTIVE HOURS (02/27/17) Family History: States: No Known Family Hx - Social History Hx Tobacco Use: No Hx Alcohol Use: No Hx Substance Use: No - Immunization History Hx Tetanus Toxoid Vaccination: No Hx Influenza Vaccination: No Hx Pneumococcal Vaccination: No Review Of Systems Constitutional: Negative for: Fever, Chills Cardiovascular: Negative for: Chest Pain, Palpitations Respiratory: Positive for: Cough, Shortness of Breath Physical Exam - Physical Exam Appears: Non-toxic, In Acute Distress (in mild respiratory distress), Chronically Ill Head: Normacephalic Eye(s): bilateral: Normal Inspection Oral Mucosa: Moist Neck: Other (tracheostomy with clear secretions anterior neck) Cardiovascular: Rhythm Regular (mildly tachycardic ) Respiratory: Accessory Muscle Use (mild), No Rales, No Rhonchi, No Wheezing, Other ((+) transmitted upper airway sounds ) Gastrointestinal/Abdominal: Normal Exam, Bowel Sounds, Soft, No Tenderness, Other (morbidly obese) Neurological/Psych: Oriented x3 ED Course And Treatment - Laboratory Results Result Diagrams: 12/04/17 05:48 12/04/17 05:49 ECG: Interpreted By Me, Viewed By Me (sinus tachycardia 112 bpm, left axis d eviation, no acute ST/T wave changes) ECG Interpretation: Abnormal (tachycardia ) O2 Sat by Pulse Oximetry: 100 (RA) Pulse Ox Interpretation: Normal - Radiology CXR: Interpreted by Me, Viewed By Me CXR Interpretation: Yes: No Acute Disease, Other (tracheostomy in place). No: Infiltrates Progress Note: Blood work, CXR, EKG ordered and reviewed. Patient given IV solumedrol, duoneb and albuterol treatments, and mucomyst neb. 1:00am - Patient mildly improved, requesting medication for her anxiety. Ativan 0.5mg ordered. - Physician Consult Information Physician Contacted: Ad Khan Outcome Of Conversation: Discussed patient with PMD, agrees with admission for dyspnea, copd/asthma, tracheostomy increased secretions. Will enter admission under Dr. Eli since Dr. Khan is currently on blue list. Critical Care Time - Critical Care Note Total Time (in mins): 35 Documented critical care: time excludes all time spent performing seperately billable procedures. Disposition - Disposition Disposition: HOSPITALIZED Disposition Time: 01:09 Condition: STABLE - Clinical Impression Clinical Impression: Dyspnea, COPD exacerbation, Asthma exacerbation, Tracheostomy complication Decision To Admit - Pt Status Changed To: Hospital Disposition Of: Inpatient - Admit Certification Admit to Inpatient:: After my assessment, the patient will require hospitalization for at least two midnights. This is because of the severity of symptoms shown, intensity of services needed, and/or the medical risk in this patient being treated as an outpatient. - InPatient: Physician Admission Certification: I certify that this patient requires 2 or more midnights of care for the following reason:: see notes - . Bed Request Type: Telemetry Admitting Physician: Ad Khan Patient Diagnosis: Dyspnea, COPD exacerbation, Asthma exacerbation, Tracheostomy complication
[2017-11-30] MEDS ORDERED: Albuterol 0.083% Inhal Sol (2.5 mg/3 mL) UD ONE ×2 (00:05→06:26)
[2017-11-30 00:20] LABS: BASO # 0.1 K/uL (0.0-0.2); BASO % 0.5 % (0.0-2.0); EOS # 0.3 K/uL (0.0-0.7); EOS % 2.3 % (0.0-4.0); HEMOGLOBIN 12.2 g/dL (11.0-16.0); LYMPH # 2.6 K/uL (1.0-4.3); LYMPH % 18.4 % (20.0-40.0); MEAN CELL VOLUME 78.2 fL (81.0-99.0); MEAN CORPUSCULAR HEMOGLOBIN 25.2 pg (27.0-31.0); MEAN CORPUSCULAR HGB CONC 32.3 g/dL (33.0-37.0); MEAN PLATELET VOLUME 8.9 fL (7.2-11.7); MONO # 1.1 K/uL (0.0-0.8); MONO % 7.8 % (0.0-10.0); NRBC % 0.1 % (0.0-2.0); RBC 4.85 Mil/uL (3.80-5.20); RED CELL DISTRIBUTION WIDTH 16.2 % (11.5-14.5)
[2017-11-30 01:38] LABS: ALB/GLOB RATIO 0.9 (1.0-2.1); ALBUMIN 3.7 g/dL (3.5-5.0); ALT/SGPT 21 U/L (9-52); AST/SGOT 18 U/L (14-36); BLOOD UREA NITROGEN 16 mg/dL (7-17); CALCIUM 9.3 mg/dl (8.6-10.4); CK-MB 0.74 ng/mL (0.0-3.38); GFR NON-AFRICAN AMERICAN > 60
[2017-11-30 02:15] LABS: B-TYPE NATRIURETIC PEPTIDE 206 pg/mL (0-900)
[2017-11-30] MEDS ORDERED: Dextrose 50% SYRINGE Inj (50 ml) IV PRN (03:44)
[2017-11-30] MEDS ORDERED: Glucagon Recombinant 1 mg Inj IM PRN (03:44)
[2017-11-30] MEDS ORDERED: [UNRECOGNIZED DRUG - REMARK] PO PRN (03:52)
[2017-11-30] MEDS: Albuterol-Ipratrop 3 mg / 0.5 (3 ml) UD INH SCH ×5 (04:00→19:51)
[2017-11-30] MEDS ORDERED: Albuterol 0.083% Inhal Sol (2.5 mg/3 mL) UD IH SCH (04:00)
[2017-11-30] MEDS: (Novolin R) Insulin Human Regular 100 units/ml vial SC SCH ×4 (08:00→21:34)
[2017-11-30] MEDS: (Lantus) Insulin Glargine, Recombinant SC SCH ×3 (08:13→16:39)
--- NOTE | 2017-11-30 08:38 | RAD ---
Date of service: 11/30/2017 PROCEDURE: CHEST RADIOGRAPH, 1 VIEW HISTORY: SOB COMPARISON: 10/04/2017. FINDINGS: There is stable position of the tracheostomy tube. LUNGS: The lungs are clear. PLEURA: No pneumothorax or pleural fluid seen. CARDIOVASCULAR: Normal. OSSEOUS STRUCTURES: No significant abnormalities. VISUALIZED UPPER ABDOMEN: Normal. OTHER FINDINGS: None. IMPRESSION: Stable position of the tracheostomy tube. Clear lungs.
[2017-11-30] MEDS ORDERED: MethylPREDNISolone 40 mg Vial IVP SCH (10:00)
[2017-11-30] MEDS: Enoxaparin 40 mg Syringe SC SCH (10:12)
[2017-11-30] MEDS: Pantoprazole 20 mg EC Tab PO SCH (10:13)
[2017-11-30] MEDS: QUEtiapine 200 mg XR Tab PO SCH ×2 (10:13→21:32)
[2017-11-30] MEDS: guaiFENesin 100 mg/5 ml Syrup UD PO PRN ×2 (10:15→17:16)
[2017-11-30] MEDS ORDERED: Racepinephrine 2.25% Inhal Soln 0.5 ML UD INH STA ×2 (10:20→10:27)
[2017-11-30] MEDS: MethylPREDNISolone 40 mg Vial IVP SCH (21:31)
--- NOTE | 2017-11-30 23:40 | CP.PCM.HP ---
Present on Admission - Present on Admission Any Indicators Present on Admission: No Past Patient History - Infectious Disease Hx of Infectious Diseases: None - Tetanus Immunizations Tetanus Immunization: Unknown - Past Medical History & Family History Past Medical History?: Yes - Past Social History Smoking Status: Never Smoked - CARDIAC Hx Congestive Heart Failure: Yes Hx Hypertension: Yes - PULMONARY Hx Asthma: Yes Hx Bronchitis: Yes Hx Chronic Obstructive Pulmonary Disease (COPD): Yes (Emphysema,) Hx Emphysema: Yes Hx Pneumonia: Yes Hx Sleep Apnea: Yes - NEUROLOGICAL Hx Seizures: Yes - HEENT Hx HEENT Problems: Yes Hx Cataracts: Yes - RENAL Hx Chronic Kidney Disease: No - ENDOCRINE/METABOLIC Hx Hypothyroidism: No - HEMATOLOGICAL/ONCOLOGICAL Hx Human Immunodeficiency Virus (HIV): No - INTEGUMENTARY Hx Dermatological Problems: No - MUSCULOSKELETAL/RHEUMATOLOGICAL Hx Falls: No - GASTROINTESTINAL Hx Gall Bladder Disease: Yes - GENITOURINARY/GYNECOLOGICAL Hx Sexually Transmitted Disorders: No - PSYCHIATRIC Hx Anxiety: Yes Hx Bipolar Disorder: Yes Hx Depression: Yes Hx Substance Use: No - SURGICAL HISTORY Hx Appendectomy: Yes Hx Cholecystectomy: Yes - ANESTHESIA Hx Anesthesia: Yes Hx Anesthesia Reactions: No Hx Malignant Hyperthermia: No Has any member of the family had a problem w/ anesthesia?: No Meds Home Medications: Home Medication List Medication Instructions Recorded Confirmed Type RX: Acetaminophen [Tylenol 325mg 650 mg PO Q6H PRN tab 12/08/17 Rx tab] RX: Albuterol/Ipratropium [Duoneb 3 ml INH RQ4 neb 12/08/17 Rx 3 mg/0.5 mg (3 ml) UD] RX: Gabapentin [Neurontin] 800 mg PO TID tab 12/08/17 Rx RX: Insulin Glargine, Recombina 17 unit SC AC unit 12/08/17 Rx [Lantus] RX: Insulin Human Regular [Novolin 0 unit SC ACHS unit 12/08/17 Rx R] RX: Montelukast [Singulair] 10 mg PO HS tab 12/08/17 Rx RX: Pantoprazole [Protonix EC Tab] 20 mg PO DAILY ect 12/08/17 Rx RX: Sertraline [Zoloft] 100 mg PO BID tab 12/08/17 Rx RX: guaiFENesin [Robitussin] 200 mg PO Q4H udc 12/08/17 Rx RX: traZODone [Desyrel] 150 mg PO HS tab 12/08/17 Rx Allergies/Adverse Reactions: Allergies Allergy/AdvReac Type Severity Reaction Status Date / Time aspirin Allergy ANAPHYLAXIS Verified 11/29/17 23:33 ceftriaxone sodium Allergy ANAPHYLAXIS Verified 11/29/17 23:33 [From Rocephin] ibuprofen [From Motrin] Allergy ANAPHYLAXIS Verified 11/29/17 23:33 iodine Allergy ANAPHYLAXIS Verified 11/29/17 23:33 raspberry Allergy ANAPHYLAXIS Verified 11/29/17 23:33 Results - Vital Signs Recent Vital Signs: Last Vital Signs Temp 98.3 F 11/30/17 16:00 Pulse 85 11/30/17 19:00 Resp 26 H 11/30/17 19:00 BP 124/77 11/30/17 18:37 Pulse Ox 94 L 11/30/17 19:00 - Labs Result Diagrams: 12/04/17 05:48 12/04/17 05:49 Labs: Laboratory Results - last 24 hr 11/29/17 11/30/17 11/30/17 23:44 00:09 01:07 WBC 14.0 H RBC 4.85 Hgb 12.2 Hct 37.9 MCV 78.2 L MCH 25.2 L MCHC 32.3 L RDW 16.2 H Plt Count 140 MPV 8.9 Neut % (Auto) 71.0 Lymph % (Auto) 18.4 L Gonzales % (Auto) 7.8 Eos % (Auto) 2.3 Baso % (Auto) 0.5 Neut # (Auto) 10.0 H Lymph # (Auto) 2.6 Gonzales # (Auto) 1.1 H Eos # (Auto) 0.3 Baso # (Auto) 0.1 Sodium 142 Potassium 4.1 Chloride 104 Carbon Dioxide 24 Anion Gap 18 BUN 16 Creatinine 0.8 Est GFR ( Amer) > 60 Est GFR (Non-Af Amer) > 60 POC Glucose (mg/dL) 179 H Random Glucose 220 H Calcium 9.3 Total Bilirubin 0.5 AST 18 ALT 21 Alkaline Phosphatase 222 H D Total Creatine Kinase 34 CK-MB (Mass) 0.74 Troponin I < 0.0120 NT-Pro-B Natriuret Pep 206 Total Protein 7.7 Albumin 3.7 Globulin 4.0 H Albumin/Globulin Ratio 0.9 L 10/05/18 10/05/18 10/05/18 08:00 11:36 16:07 WBC RBC Hgb Hct MCV MCH MCHC RDW Plt Count MPV Neut % (Auto) Lymph % (Auto) Gonzales % (Auto) Eos % (Auto) Baso % (Auto) Neut # (Auto) Lymph # (Auto) Gonzales # (Auto) Eos # (Auto) Baso # (Auto) Sodium Potassium Chloride Carbon Dioxide Anion Gap BUN Creatinine Est GFR ( Amer) Est GFR (Non-Af Amer) POC Glucose (mg/dL) 491 H* 422 H* 375 H Random Glucose Calcium Total Bilirubin AST ALT Alkaline Phosphatase Total Creatine Kinase CK-MB (Mass) Troponin I NT-Pro-B Natriuret Pep Total Protein Albumin Globulin Albumin/Globulin Ratio 11/30/17 21:20 WBC RBC Hgb Hct MCV MCH MCHC RDW Plt Count MPV Neut % (Auto) Lymph % (Auto) Gonzales % (Auto) Eos % (Auto) Baso % (Auto) Neut # (Auto) Lymph # (Auto) Gonzales # (Auto) Eos # (Auto) Baso # (Auto) Sodium Potassium Chloride Carbon Dioxide Anion Gap BUN Creatinine Est GFR ( Amer) Est GFR (Non-Af Amer) POC Glucose (mg/dL) 315 H Random Glucose Calcium Total Bilirubin AST ALT Alkaline Phosphatase Total Creatine Kinase CK-MB (Mass) Troponin I NT-Pro-B Natriuret Pep Total Protein Albumin Globulin Albumin/Globulin Ratio
[2017-12-01] MEDS: Albuterol-Ipratrop 3 mg / 0.5 (3 ml) UD INH SCH ×6 (00:19→19:50)
--- NOTE | 2017-12-01 00:53 | OP ---
PROCEDURE DATE: 11/30/2017 PREOPERATIVE DIAGNOSIS: Dysphagia, possible airway obstruction. POSTOPERATIVE DIAGNOSIS: Dysphagia, possible airway obstruction. PROCEDURE: Flexible laryngoscopy. SURGEON: Jake Keller MD DESCRIPTION OF PROCEDURE: The patient was placed in a seated position. Nose was decongested using Afrin. Flexible laryngoscope was inserted into the nasal cavity; passed through the nasopharynx, oropharynx, and hypopharynx. The pharyngeal tillman, base of tongue, vallecula, epiglottis, AE folds, false cords, true cords, piriform sinuses, arytenoids were brought into view. No masses or lesions were noted. Mild to moderate arytenoid erythema was noted bilaterally. Next, the scope was removed. It was inserted into the tracheostomy tube and passed down to the distal portion of the trach tube. It was noted that the patient has a lump of granulation tissue that was causing a ball and valve effect on the trach tube, possibly obstructing it when the patient was exhaling. The scope was removed. The patient's chest was having laryngopharyngeal reflux and I would recommend a GI consult. The patient also has what looks like granulation tissue at the distal end of the trach tube. I would recommend a Cardiothoracic consult for management of the possible granulation tissue causing a ball and valve effect. Jake Keller MD MTDD
[2017-12-01] MEDS: MethylPREDNISolone 40 mg Vial IVP SCH ×3 (05:34→21:39)
[2017-12-01] MEDS: (Novolin R) Insulin Human Regular 100 units/ml vial SC SCH ×4 (08:35→22:14)
[2017-12-01] MEDS: (Lantus) Insulin Glargine, Recombinant SC SCH ×3 (08:36→16:50)
[2017-12-01] MEDS: guaiFENesin 100 mg/5 ml Syrup UD PO PRN ×2 (10:46→23:37)
[2017-12-01] MEDS: Enoxaparin 40 mg Syringe SC SCH (10:46)
[2017-12-01] MEDS: QUEtiapine 200 mg XR Tab PO SCH ×2 (10:46→21:39)
[2017-12-01] MEDS: Pantoprazole 20 mg EC Tab PO SCH (10:46)
[2017-12-01] MEDS ORDERED: Racepinephrine 2.25% Inhal Soln 0.5 ML UD INH STA (11:07)
--- NOTE | 2017-12-01 12:48 | PCM.RRT ---
AEROSPACE PROJECT MANAGER Nurses Assessment - Situation Date: 12/01/17 - Ventilator Settings FIO2 (% Oxygen): 40 I.Reason for AEROSPACE PROJECT MANAGER - A) Acute Change in Patient: (Select all that apply): Staff member or family is worried about patient - Neurological Status (Select all that apply): Alert, Responsive, Oriented, Verbal, Follows Commands. absent: Disoriented, Confused, Lethargic, Aggressive, Weakness - Respiratory Oxygen Delivery Method: Trach Collar @% - Constitutional Appears: Non-toxic, In Acute Distress (cough - stating she is unable to breath) - Head Head Exam: ATRAUMATIC, NORMOCEPHALIC - Eyes Eye Exam: Normal appearance - Respiratory Exam Respiratory Exam: Rhonchi (throughout), Respiratory Distress (coughing). absent: Decreased Breath Sounds, Clear to Ausculation Bilateral, Rales, Wheezes, NORMAL BREATHING PATTERN (excessive coughing) - Cardiovascular Exam Cardiovascular Exam: Tachycardia (120s on tele), +S1 - Neurological Exam Neurological Exam: Alert, Awake Plan - Assessment of Findings&Treatment Plan Patient well known to medical staff. AEROSPACE PROJECT MANAGER was called due to patient appearing in acute shortness of breath 2/2 excessive coughing. Patient having difficulty breathing. Has trach collar in place. Patient had recent flexible laryngoscopy with Dr. Keller. There was noted granulation tissue causing a possible obstructing effect when patient exhales when scope was placed in trach tube. Patient was suctioned with little success. Patient given ativan for her anxiety and given race epi. Patient calmed down, breathing rate improved, HR improved. Patients oxygen saturation was >98% throughout entire AEROSPACE PROJECT MANAGER. Dr. Khan notified. Case discussed with Dr. Janna Carrera Tianna PGY2
--- NOTE | 2017-12-01 15:13 | CP.PCM.CON ---
History of Present Illness - History of Present Illness History of Present Illness: Cardiovascular surgery note for Dr. Mckeon Consulted for: possible obstructing tracheal granuloma tissue Pt is a 62F with PMH including severe COPD with tracheostomy for past 5 years. For the past 2 weeks patient has had a severe productive cough and was just D/C'd from [facility] 11/27 after treatment for severe bronchitis. She returned to the ER on 10/4 PM for severe SOB and cough. Patient was admitted to the ICU and a scope was performed by ENT--Dr. Keller--who found some tracheal granulation tissue at the tip of the tracheostomy tube, which may be causing irritation or a ball valve effect, so CT surgery consult was placed. Pt is sleeping comfortable in bed, with non-rebreather mask with humidified O2 placed over her tracheostomy. Pt states that she is currently breathing well but that she has coughing spells that last for several minutes at a time. States the cough is productive of phlegm, but denies any fevers, chest pain, nausea, vomiting, diarrhea, or any other symptoms. PMH: copd, tracheobronchitis, HTN, CALIXTO, seizure, DM, scizophrenia, bipolar disorder PSH: tracheostomy tube creation, cholecystectomy, hysterectomy, appendectomy ALL: ASA, rocephin, iodine, ibuprofen, raspberry Social: denies smoking, denies ETOH, or illicit drugs Review of Systems - Review of Systems All systems: reviewed and no additional remarkable complaints except (as per HPI) Past Patient History - Infectious Disease Hx of Infectious Diseases: None - Tetanus Immunizations Tetanus Immunization: Unknown - Past Medical History & Family History Past Medical History?: Yes - Past Social History Smoking Status: Never Smoked Alcohol: None Drugs: Denies - CARDIAC Hx Congestive Heart Failure: Yes Hx Hypertension: Yes - PULMONARY Hx Asthma: Yes Hx Bronchitis: Yes Hx Chronic Obstructive Pulmonary Disease (COPD): Yes (Emphysema,) Hx Emphysema: Yes Hx Pneumonia: Yes Hx Sleep Apnea: Yes - NEUROLOGICAL Hx Seizures: Yes - HEENT Hx HEENT Problems: Yes Hx Cataracts: Yes - RENAL Hx Chronic Kidney Disease: No - ENDOCRINE/METABOLIC Hx Hypothyroidism: No - HEMATOLOGICAL/ONCOLOGICAL Hx Human Immunodeficiency Virus (HIV): No - INTEGUMENTARY Hx Dermatological Problems: No - MUSCULOSKELETAL/RHEUMATOLOGICAL Hx Falls: No - GASTROINTESTINAL Hx Gall Bladder Disease: Yes - GENITOURINARY/GYNECOLOGICAL Hx Sexually Transmitted Disorders: No - PSYCHIATRIC Hx Anxiety: Yes Hx Bipolar Disorder: Yes Hx Depression: Yes Hx Substance Use: No - SURGICAL HISTORY Hx Appendectomy: Yes Hx Cholecystectomy: Yes - ANESTHESIA Hx Anesthesia: Yes Hx Anesthesia Reactions: No Hx Malignant Hyperthermia: No Has any member of the family had a problem w/ anesthesia?: No Meds Allergies/Adverse Reactions: Allergies Allergy/AdvReac Type Severity Reaction Status Date / Time aspirin Allergy ANAPHYLAXIS Verified 11/29/17 23:33 ceftriaxone sodium Allergy ANAPHYLAXIS Verified 11/29/17 23:33 [From Rocephin] ibuprofen [From Motrin] Allergy ANAPHYLAXIS Verified 11/29/17 23:33 iodine Allergy ANAPHYLAXIS Verified 11/29/17 23:33 raspberry Allergy ANAPHYLAXIS Verified 11/29/17 23:33 - Medications Medications: Current Medications Acetaminophen (Tylenol 325mg Tab) 650 mg PO Q6H PRN PRN Reason: Pain, Mild (1-3) Albuterol/Ipratropium (Duoneb 3 Mg/0.5 Mg (3 Ml) Ud) 3 ml INH RQ4 SHAYLA Last Admin: 12/01/17 11:40 Dose: 3 ml Dextrose (Dextrose 50% Inj) 0 ml IV STAT PRN; Protocol PRN Reason: Hypoglycemia Protocol Dextrose (Glutose 15) 0 gm PO ONCE PRN; Protocol PRN Reason: Hypoglycemia Protocol Enoxaparin Sodium (Lovenox) 40 mg SC DAILY [facility] Last Admin: 12/01/17 10:46 Dose: 40 mg Gabapentin (Neurontin) 800 mg PO TID [facility] Last Admin: 12/01/17 12:22 Dose: 800 mg Glucagon (Glucagen Diagnostic Kit) 0 mg IM STAT PRN; Protocol PRN Reason: Hypoglycemia Protocol Guaifenesin (Robitussin) 100 mg PO Q4H PRN PRN Reason: Cough Last Admin: 12/01/17 10:46 Dose: 100 mg Dextrose (Dextrose 5% In Water 1000 Ml) 1,000 mls @ 0 mls/hr IV .Q0M PRN; Protocol PRN Reason: Hypoglycemia Protocol Insulin Glargine (Lantus) 17 unit SC AC [facility] Last Admin: 12/01/17 12:11 Dose: 17 units Insulin Human Regular (Novolin R) 0 unit SC ACHS [facility]; Protocol Last Admin: 12/01/17 12:11 Dose: 10 units Lorazepam (Ativan) 0.5 mg PO BID PRN PRN Reason: Anxiety Last Admin: 12/01/17 10:46 Dose: 0.5 mg Methylprednisolone (Solu-Medrol) 60 mg IVP Q8 [facility] Last Admin: 12/01/17 13:50 Dose: 60 mg Montelukast Sodium (Singulair) 10 mg PO HS [facility] Last Admin: 11/30/17 21:35 Dose: 10 mg Pantoprazole Sodium (Protonix Ec Tab) 20 mg PO DAILY [facility] Last Admin: 12/01/17 10:46 Dose: 20 mg Quetiapine Fumarate (Seroquel Xr) 400 mg PO Q12 [facility] Last Admin: 12/01/17 10:46 Dose: 400 mg Sertraline HCl (Zoloft) 100 mg PO BID [facility] Last Admin: 12/01/17 10:46 Dose: 100 mg Tramadol HCl (Ultram) 50 mg PO Q6 PRN PRN Reason: Pain, Mild (1-3) Trazodone HCl (Desyrel) 150 mg PO [facility] Last Admin: 11/30/17 21:31 Dose: 150 mg Physical Exam - Constitutional Appears: Well, Non-toxic, No Acute Distress - Head Exam Head Exam: ATRAUMATIC, NORMOCEPHALIC - Eye Exam Eye Exam: Normal appearance. absent: Conjunctival injection, Scleral icterus - ENT Exam ENT Exam: Mucous Membranes Moist, Normal Oropharynx - Neck Exam Additional comments: tracheostomy tube in place--no surrounding erythema, no drainage, productive of yellow-white thick phlegm after coughing - Respiratory Exam Respiratory Exam: absent: Accessory Muscle Use, Respiratory Distress Additional comments: dyspnea when attempting to speak - Cardiovascular Exam Cardiovascular Exam: Tachycardia, REGULAR RHYTHM - GI/Abdominal Exam GI & Abdominal Exam: Soft. absent: Distended, Tenderness - Extremities Exam Extremities exam: Positive for: pedal pulses present. Negative for: calf tenderness, pedal edema - Neurological Exam Neurological exam: Alert, Oriented x3 - Psychiatric Exam Psychiatric exam: Normal Affect, Normal Mood - Skin Skin Exam: Dry, Normal Color, Warm Results - Vital Signs Recent Vital Signs: Last Vital Signs Temp 97.8 F 12/01/17 07:00 Pulse 63 12/01/17 07:57 Resp 19 12/01/17 07:57 BP 130/74 12/01/17 07:57 Pulse Ox 94 L 12/01/17 07:00 - Labs Result Diagrams: 11/30/17 00:09 11/30/17 01:07 Labs: Laboratory Results - last 24 hr 11/30/17 11/30/17 12/01/17 16:07 21:20 07:21 POC Glucose (mg/dL) 375 H 315 H 360 H 12/01/17 11:29 POC Glucose (mg/dL) 473 H* Assessment & Plan - Assessment and Plan (Free Text) Assessment: 62F with chronic tracheostomy with granulation tissue growth in the trachea, possibly causing cough and intermittent respiratory distress Plan: Recommend a CT of the trachea (special trachea protocol) for further evaluation May consider insertion of longer ET tube if patient has respiratory distress Further cardiothoracic surgical plans pending further evaluation Trend CBC Continue to follow up ICU and ENT recs Continue to supplement with O2 as needed Discussed with Dr. Mckeon who agrees with above Monica Robbins, PGY2
--- NOTE | 2017-12-01 22:13 | CP.PCM.PN ---
Subjective - Date & Time of Evaluation Date of Evaluation: 12/01/17 Time of Evaluation: 08:08 - Subjective Subjective: dictated Objective - Vital Signs/Intake and Output Vital Signs (last 24 hours): Temp Pulse Resp BP Pulse Ox 98.5 F 80 18 118/64 100 12/01/17 16:00 12/01/17 19:57 12/01/17 19:57 12/01/17 19:57 12/01/17 19:57 Intake and Output: 12/01/17 12/02/17 18:59 06:59 Intake Total 960 Output Total 350 Balance 610 - Medications Medications: Current Medications Acetaminophen (Tylenol 325mg Tab) 650 mg PO Q6H PRN PRN Reason: Pain, Mild (1-3) Albuterol/Ipratropium (Duoneb 3 Mg/0.5 Mg (3 Ml) Ud) 3 ml INH RQ4 [facility] Last Admin: 12/01/17 19:50 Dose: 3 ml Dextrose (Dextrose 50% Inj) 0 ml IV STAT PRN; Protocol PRN Reason: Hypoglycemia Protocol Dextrose (Glutose 15) 0 gm PO ONCE PRN; Protocol PRN Reason: Hypoglycemia Protocol Enoxaparin Sodium (Lovenox) 40 mg SC DAILY [facility] Last Admin: 12/01/17 10:46 Dose: 40 mg Gabapentin (Neurontin) 800 mg PO TID [facility] Last Admin: 12/01/17 18:52 Dose: 800 mg Glucagon (Glucagen Diagnostic Kit) 0 mg IM STAT PRN; Protocol PRN Reason: Hypoglycemia Protocol Guaifenesin (Robitussin) 100 mg PO Q4H PRN PRN Reason: Cough Last Admin: 12/01/17 10:46 Dose: 100 mg Dextrose (Dextrose 5% In Water 1000 Ml) 1,000 mls @ 0 mls/hr IV .Q0M PRN; Protocol PRN Reason: Hypoglycemia Protocol Insulin Glargine (Lantus) 17 unit SC AC [facility] Last Admin: 12/01/17 16:50 Dose: 17 units Insulin Human Regular (Novolin R) 0 unit SC ACHS [facility]; Protocol Last Admin: 12/01/17 16:50 Dose: 6 units Lorazepam (Ativan) 0.5 mg PO BID PRN PRN Reason: Anxiety Last Admin: 12/01/17 21:39 Dose: 0.5 mg Methylprednisolone (Solu-Medrol) 60 mg IVP Q8 [facility] Last Admin: 12/01/17 21:39 Dose: 60 mg Montelukast Sodium (Singulair) 10 mg PO HS [facility] Last Admin: 12/01/17 21:39 Dose: 10 mg Pantoprazole Sodium (Protonix Ec Tab) 20 mg PO DAILY [facility] Last Admin: 12/01/17 10:46 Dose: 20 mg Quetiapine Fumarate (Seroquel Xr) 400 mg PO Q12 [facility] Last Admin: 12/01/17 21:39 Dose: 400 mg Sertraline HCl (Zoloft) 100 mg PO BID [facility] Last Admin: 12/01/17 18:52 Dose: 100 mg Tramadol HCl (Ultram) 50 mg PO Q6 PRN PRN Reason: Pain, Mild (1-3) Last Admin: 12/01/17 18:52 Dose: 50 mg Trazodone HCl (Desyrel) 150 mg PO HS [facility] Last Admin: 12/01/17 21:40 Dose: 150 mg - Labs Labs: 11/30/17 00:09 11/30/17 01:07
[2017-12-02] MEDS: Albuterol-Ipratrop 3 mg / 0.5 (3 ml) UD INH SCH ×6 (01:09→19:02)
[2017-12-02] MEDS: MethylPREDNISolone 40 mg Vial IVP SCH ×3 (06:00→21:11)
[2017-12-02] MEDS: (Novolin R) Insulin Human Regular 100 units/ml vial SC SCH ×4 (08:50→21:41)
[2017-12-02] MEDS: (Lantus) Insulin Glargine, Recombinant SC SCH ×3 (08:50→16:43)
[2017-12-02] MEDS: guaiFENesin 100 mg/5 ml Syrup UD PO PRN ×2 (10:26→17:24)
[2017-12-02] MEDS: Pantoprazole 20 mg EC Tab PO SCH (10:27)
[2017-12-02] MEDS: Enoxaparin 40 mg Syringe SC SCH (10:27)
[2017-12-02] MEDS: QUEtiapine 200 mg XR Tab PO SCH ×2 (10:27→21:12)
--- NOTE | 2017-12-02 14:52 | CP.PCM.PN ---
Subjective - Date & Time of Evaluation Date of Evaluation: 12/02/17 Time of Evaluation: 14:49 - Subjective Subjective: Surgery PT seen and examined. c/o coughing. Denies SOB, diziness, CP. Tracheostomy in place. Saturating at 100%. Objective - Vital Signs/Intake and Output Vital Signs (last 24 hours): Temp Pulse Resp BP Pulse Ox 98.1 F 68 19 132/75 96 12/02/17 08:00 12/02/17 11:06 12/02/17 08:00 12/02/17 08:00 12/02/17 11:06 Intake and Output: 12/02/17 12/02/17 06:59 18:59 Intake Total 440 Output Total 400 Balance 40 - Medications Medications: Current Medications Acetaminophen (Tylenol 325mg Tab) 650 mg PO Q6H PRN PRN Reason: Pain, Mild (1-3) Albuterol/Ipratropium (Duoneb 3 Mg/0.5 Mg (3 Ml) Ud) [address] [facility] Last Admin: 12/02/17 11:02 Dose: 3 ml Dextrose (Dextrose 50% Inj) 0 ml IV STAT PRN; Protocol PRN Reason: Hypoglycemia Protocol Dextrose (Glutose 15) 0 gm PO ONCE PRN; Protocol PRN Reason: Hypoglycemia Protocol Enoxaparin Sodium (Lovenox) [address] [facility] Last Admin: 12/02/17 10:27 Dose: 40 mg Gabapentin (Neurontin) [address] [facility] Last Admin: 12/02/17 14:06 Dose: 800 mg Glucagon (Glucagen Diagnostic Kit) 0 mg IM STAT PRN; Protocol PRN Reason: Hypoglycemia Protocol Guaifenesin (Robitussin) 100 mg PO Q4H PRN PRN Reason: Cough Last Admin: 12/02/17 10:26 Dose: 100 mg Dextrose (Dextrose 5% In Water 1000 Ml) 1,000 mls @ 0 mls/hr IV .Q0M PRN; Protocol PRN Reason: Hypoglycemia Protocol Insulin Glargine (Lantus) [address] [facility] Last Admin: 12/02/17 12:29 Dose: 17 units Insulin Human Regular (Novolin R) [address] [facility]; Protocol Last Admin: 12/02/17 12:30 Dose: 3 units Lorazepam (Ativan) 0.5 mg PO BID PRN PRN Reason: Anxiety Last Admin: 12/02/17 14:22 Dose: 0.5 mg Methylprednisolone (Solu-Medrol) [address] [facility] Last Admin: 12/02/17 14:06 Dose: 60 mg Montelukast Sodium (Singulair) [address] [facility] Last Admin: 12/01/17 21:39 Dose: 10 mg Pantoprazole Sodium (Protonix Ec Tab) [address] [facility] Last Admin: 12/02/17 10:27 Dose: 20 mg Quetiapine Fumarate (Seroquel Xr) [address] [facility] Last Admin: 12/02/17 10:27 Dose: 400 mg Sertraline HCl (Zoloft) [address] [facility] Last Admin: 12/02/17 10:27 Dose: 100 mg Tramadol HCl (Ultram) 50 mg PO Q6 PRN PRN Reason: Pain, Mild (1-3) Last Admin: 12/02/17 08:51 Dose: 50 mg Trazodone HCl (Desyrel) 150 mg PO [facility] Last Admin: 12/01/17 21:40 Dose: 150 mg - Labs Labs: 11/30/17 00:09 11/30/17 01:07 - Constitutional Appears: No Acute Distress - Head Exam Head Exam: ATRAUMATIC, NORMAL INSPECTION, NORMOCEPHALIC - Eye Exam Eye Exam: EOMI, Normal appearance, PERRL Pupil Exam: NORMAL ACCOMODATION, PERRL - ENT Exam ENT Exam: Mucous Membranes Moist - Neck Exam Neck Exam: absent: Normal Inspection Additional comments: tracheostomy in place no bleeding. No secretions. - Respiratory Exam Respiratory Exam: absent: Respiratory Distress - Cardiovascular Exam Cardiovascular Exam: REGULAR RHYTHM - GI/Abdominal Exam GI & Abdominal Exam: Soft. absent: Distended - Extremities Exam Extremities Exam: Full ROM, Normal Capillary Refill, Normal Inspection. absent: Joint Swelling, Pedal Edema - Back Exam Back Exam: NORMAL INSPECTION - Neurological Exam Neurological Exam: Alert, Awake, CN II-XII Intact, Normal Gait, Oriented x3 - Psychiatric Exam Psychiatric exam: Normal Affect, Normal Mood - Skin Skin Exam: Dry, Intact, Normal Color, Warm Assessment and Plan - Assessment and Plan (Free Text) Assessment: 62F with chronic tracheostomy with granulation tissue growth in the trachea, possibly causing cough and intermittent respiratory distress Plan: Recommend a CT of the trachea (special trachea protocol) for further evaluation May consider insertion of longer ET tube if patient has respiratory distress Further cardiothoracic surgical plans pending further evaluation Trend CBC Continue to follow up ICU and ENT recs Continue to supplement with O2 as needed Will Discuss with Dr. Mckeon
[2017-12-02] MEDS ORDERED: Racepinephrine 2.25% Inhal Soln 0.5 ML UD INH ONE (16:24)
--- NOTE | 2017-12-02 19:19 | CP.PCM.PN ---
Subjective - Date & Time of Evaluation Date of Evaluation: 12/02/17 Time of Evaluation: 08:07 - Subjective Subjective: dictated Objective - Vital Signs/Intake and Output Vital Signs (last 24 hours): Temp Pulse Resp BP Pulse Ox 98 F 97 H 22 152/72 H 99 12/02/17 16:00 12/02/17 18:00 12/02/17 16:00 12/02/17 16:00 12/02/17 16:00 Intake and Output: 12/02/17 12/03/17 18:59 06:59 Intake Total 840 Output Total 600 Balance 240 - Medications Medications: Current Medications Acetaminophen (Tylenol 325mg Tab) 650 mg PO Q6H PRN PRN Reason: Pain, Mild (1-3) Albuterol/Ipratropium (Duoneb 3 Mg/0.5 Mg (3 Ml) Ud) 3 ml INH RQ4 [facility] Last Admin: 12/02/17 19:02 Dose: 3 ml Dextrose (Dextrose 50% Inj) 0 ml IV STAT PRN; Protocol PRN Reason: Hypoglycemia Protocol Dextrose (Glutose 15) 0 gm PO ONCE PRN; Protocol PRN Reason: Hypoglycemia Protocol Enoxaparin Sodium (Lovenox) 40 mg SC DAILY [facility] Last Admin: 12/02/17 10:27 Dose: 40 mg Gabapentin (Neurontin) 800 mg PO TID [facility] Last Admin: 12/02/17 17:24 Dose: 800 mg Glucagon (Glucagen Diagnostic Kit) 0 mg IM STAT PRN; Protocol PRN Reason: Hypoglycemia Protocol Guaifenesin (Robitussin) 100 mg PO Q4H PRN PRN Reason: Cough Last Admin: 12/02/17 17:24 Dose: 100 mg Dextrose (Dextrose 5% In Water 1000 Ml) 1,000 mls @ 0 mls/hr IV .Q0M PRN; Protocol PRN Reason: Hypoglycemia Protocol Insulin Glargine (Lantus) 17 unit SC AC [facility] Last Admin: 12/02/17 16:43 Dose: 17 units Insulin Human Regular (Novolin R) 0 unit SC ACHS [facility]; Protocol Last Admin: 12/02/17 16:43 Dose: 4 units Lorazepam (Ativan) 0.5 mg PO BID PRN PRN Reason: Anxiety Last Admin: 12/02/17 14:55 Dose: 0.5 mg Methylprednisolone (Solu-Medrol) 60 mg IVP Q8 [facility] Last Admin: 12/02/17 14:06 Dose: 60 mg Montelukast Sodium (Singulair) 10 mg PO HS [facility] Last Admin: 12/01/17 21:39 Dose: 10 mg Pantoprazole Sodium (Protonix Ec Tab) 20 mg PO DAILY [facility] Last Admin: 12/02/17 10:27 Dose: 20 mg Quetiapine Fumarate (Seroquel Xr) 400 mg PO Q12 [facility] Last Admin: 12/02/17 10:27 Dose: 400 mg Sertraline HCl (Zoloft) 100 mg PO BID [facility] Last Admin: 12/02/17 17:24 Dose: 100 mg Tramadol HCl (Ultram) 50 mg PO Q6 PRN PRN Reason: Pain, Mild (1-3) Last Admin: 12/02/17 08:51 Dose: 50 mg Trazodone HCl (Desyrel) 150 mg PO HS [facility] Last Admin: 12/01/17 21:40 Dose: 150 mg - Labs Labs: 11/30/17 00:09 11/30/17 01:07
[2017-12-03] MEDS: Albuterol-Ipratrop 3 mg / 0.5 (3 ml) UD INH SCH ×5 (00:11→20:40)
[2017-12-03] MEDS: MethylPREDNISolone 40 mg Vial IVP SCH ×3 (06:06→21:21)
[2017-12-03] MEDS: (Lantus) Insulin Glargine, Recombinant SC SCH ×3 (08:15→17:08)
[2017-12-03] MEDS: (Novolin R) Insulin Human Regular 100 units/ml vial SC SCH ×4 (08:20→21:37)
--- NOTE | 2017-12-03 08:46 | PN ---
DATE: 12/02/2017 SUBJECTIVE: The patient gets episodic shortness of breath, cough, and wheezing. The patient received racemic epinephrine by nebulizer, and then, the patient received Ativan to calm her down. The patient is afebrile. secretions, being seen by Thoracic Surgery. PHYSICAL EXAMINATION: VITAL SIGNS: BP 152/72, pulse 94, respiratory rate 22, and temperature 98. LUNGS: Bilateral rhonchi. CVS: S1, S2 regular. ABDOMEN: Soft. ASSESSMENT: 1. Tracheostomy complications. 2. Bronchial asthma is a suggestion. 3. Type 2 diabetes. 4. Anxiety and depression. PLAN: Continue current medication. Monitor the patient. Ad Khan MD
--- NOTE | 2017-12-03 08:48 | HP ---
CHIEF COMPLAINT: Shortness of breath. HISTORY OF PRESENT ILLNESS: This is a 62-year-old female, moderately obese with a history of type 2 diabetes, hypertension, hyperlipidemia, bronchial asthma, anxiety, and depression. The patient has a tracheostomy for long time, she is tracheostomy dependent, and attempts in the past to close tracheostomy had been unsuccessful. ambulatory. The patient requires some assistance with activities of daily living. She has home oxygen, nebulizer. The patient was discharged two days ago from the hospital, but she was brought by ambulance back to emergency room with increasing secretions coming out of tracheostomy site with shortness of breath, cough, congestion, wheezing, chest tightness, chest congestion. The patient was persistently coughing, no fever, no chills. The tracheostomy secretions are clear with no apparent fever, chills, rigors. The patient denies any nausea, vomiting, or diarrhea. She is anxious. She is stressed. She denies any polyuria, polydipsia, polyphagia. She denies any hematuria, pyuria. She has nasal secretion. She denies any sneezing, itchy eyes, itchy nose. She denies any skin rash. She denies any history of trauma, fall, loss of consciousness. There is no history of seizure-like activity. There is no involuntary movement. There is no fever or chills. PAST MEDICAL HISTORY: Steroid-induced diabetes, hypertension, hyperlipidemia, morbid obesity, anxiety, and depression. SOCIAL HISTORY: Nonsmoker, non-EtOH user. CURRENT MEDICATIONS AT HOME: The patient at home is on Tylenol, Ativan, Novolin R, Lantus, Neurontin, DuoNeb, Zoloft, Seroquel, Protonix, Singulair, trazodone, tramadol, prednisone, Robitussin. ALLERGIES: SHE IS ALLERGIC TO NSAIDS. PHYSICAL EXAMINATION: GENERAL: An elderly female. Right now, she is not in distress. VITAL SIGNS: Blood pressure 124/77, pulse 56, respiratory rate 26, afebrile. SKIN: No rashes. No bruises. No purpura. HEENT: Atraumatic, normocephalic. Negative pallor. Negative jaundice. Extraocular movements are intact. NECK: Supple. No JVD. No lymph node. No thyromegaly. CHEST WALL: Bilateral symmetrical expansion. LUNGS: Bilaterally decreased air entry. Positive rhonchi. CARDIOVASCULAR SYSTEM: S1 and S2, regular. ABDOMEN: Soft, nontender. Bowel sounds are positive. EXTREMITIES: No clubbing, cyanosis or edema. CENTRAL NERVOUS SYSTEM: Awake, alert, oriented x3. Cranial nerves II through XII are normal. ASSESSMENT: 1. Acute exacerbation of bronchial asthma, rule out infected secretions in the respiratory tract. 2. Tracheostomy complication. 3. Diabetes. 4. Hypertension. PLAN: Admit. The patient was seen by Otorhinolaryngology, and there is a possibility of granulation tissue causing secretions . The patient will be evaluated. The patient will be seen by Pulmonary. We will assess the patient. Ad Khan MD
--- NOTE | 2017-12-03 09:15 | CP.PCM.PN ---
Subjective - Date & Time of Evaluation Date of Evaluation: 12/03/17 Time of Evaluation: 06:40 - Subjective Subjective: Cardiothoracic surgery consult note for Dr. Mckeon Pt seen and examined at bedside this AM. Complains of persistent cough, non-productive, but no other symptoms. Objective - Vital Signs/Intake and Output Vital Signs (last 24 hours): Temp Pulse Resp BP Pulse Ox 98.5 F 60 21 136/77 95 12/03/17 00:00 12/03/17 04:00 12/03/17 04:00 12/03/17 04:00 12/03/17 04:00 Intake and Output: 12/03/17 12/03/17 06:59 18:59 Intake Total 180 Output Total 1500 Balance -1320 - Medications Medications: Current Medications Acetaminophen (Tylenol 325mg Tab) 650 mg PO Q6H PRN PRN Reason: Pain, Mild (1-3) Albuterol/Ipratropium (Duoneb 3 Mg/0.5 Mg (3 Ml) Ud) 3 ml INH RQ4 [facility] Last Admin: 12/03/17 08:11 Dose: 3 ml Dextrose (Dextrose 50% Inj) 0 ml IV STAT PRN; Protocol PRN Reason: Hypoglycemia Protocol Dextrose (Glutose 15) 0 gm PO ONCE PRN; Protocol PRN Reason: Hypoglycemia Protocol Enoxaparin Sodium (Lovenox) 40 mg SC DAILY [facility] Last Admin: 12/02/17 10:27 Dose: 40 mg Gabapentin (Neurontin) 800 mg PO TID [facility] Last Admin: 12/02/17 17:24 Dose: 800 mg Glucagon (Glucagen Diagnostic Kit) 0 mg IM STAT PRN; Protocol PRN Reason: Hypoglycemia Protocol Guaifenesin (Robitussin) 100 mg PO Q4H PRN PRN Reason: Cough Last Admin: 12/02/17 17:24 Dose: 100 mg Insulin Glargine (Lantus) 17 unit SC AC [facility] Last Admin: 12/02/17 16:43 Dose: 17 units Insulin Human Regular (Novolin R) 0 unit SC ACHS [facility]; Protocol Last Admin: 12/02/17 21:41 Dose: 3 units Lorazepam (Ativan) 0.5 mg PO BID PRN PRN Reason: Anxiety Last Admin: 12/02/17 20:01 Dose: 0.5 mg Methylprednisolone (Solu-Medrol) 60 mg IVP Q8 [facility] Last Admin: 12/03/17 06:06 Dose: 60 mg Montelukast Sodium (Singulair) 10 mg PO HS [facility] Last Admin: 12/02/17 21:12 Dose: 10 mg Pantoprazole Sodium (Protonix Ec Tab) 20 mg PO DAILY [facility] Last Admin: 12/02/17 10:27 Dose: 20 mg Quetiapine Fumarate (Seroquel Xr) 400 mg PO Q12 [facility] Last Admin: 12/02/17 21:12 Dose: 400 mg Sertraline HCl (Zoloft) 100 mg PO BID [facility] Last Admin: 12/02/17 17:24 Dose: 100 mg Tramadol HCl (Ultram) 50 mg PO Q6 PRN PRN Reason: Pain, Mild (1-3) Last Admin: 12/03/17 06:24 Dose: 50 mg Trazodone HCl (Desyrel) 150 mg PO [facility] Last Admin: 12/02/17 21:12 Dose: 150 mg - Labs Labs: 11/30/17 00:09 11/30/17 01:07 - Constitutional Appears: Well, Non-toxic, No Acute Distress - Head Exam Head Exam: ATRAUMATIC, NORMOCEPHALIC - Eye Exam Eye Exam: Normal appearance. absent: Conjunctival injection, Scleral icterus - Neck Exam Additional comments: treacheostomy in neck, adequate position, no drainage or bleeding - Respiratory Exam Respiratory Exam: NORMAL BREATHING PATTERN. absent: Accessory Muscle Use, Respiratory Distress - Cardiovascular Exam Cardiovascular Exam: RRR - GI/Abdominal Exam GI & Abdominal Exam: Soft. absent: Distended - Extremities Exam Extremities Exam: absent: Calf Tenderness, Pedal Edema, Tenderness - Neurological Exam Neurological Exam: Alert, Awake, Oriented x3 - Psychiatric Exam Psychiatric exam: Normal Affect, Normal Mood - Skin Skin Exam: Dry, Normal Color, Warm Assessment and Plan - Assessment and Plan (Free Text) Assessment: 62F with chronic tracheostomy tube in place, possible granuloma in the tracheal lumen Plan: CT soft tissue of the neck/trachea--no IV contrast d/t iodine allergy Follow up results of CT F/U ENT recs further Cardiothoracic surgery planning pending CT results Medical management per ICU and primary Discussed with DR. Linda Robbins, PGY2
[2017-12-03] MEDS: Enoxaparin 40 mg Syringe SC SCH (10:18)
[2017-12-03] MEDS: Pantoprazole 20 mg EC Tab PO SCH (10:18)
--- NOTE | 2017-12-03 11:03 | CARD ---
APPROVED REPORT Date of service: 11/30/2017 EKG Measurement Heart [id number] <Conclusion> Sinus tachycardia Otherwise normal ECG
[2017-12-03] MEDS: QUEtiapine 200 mg XR Tab PO SCH ×2 (12:19→21:22)
[2017-12-03] MEDS ORDERED: Iodixanol 320 MG/ML 100 ML BOTTLE IV ONE (15:28)
--- NOTE | 2017-12-03 16:17 | PCM.RRT ---
<Ezequiel Santoyo - Last Filed: 12/03/17 16:18> EXCHANGE ADMINISTRATOR Nurses Assessment - Situation Date: 12/01/17 Time EXCHANGE ADMINISTRATOR was called: 16:00 - IV IV Inserted during EXCHANGE ADMINISTRATOR?: No IV Fluids Initiated During EXCHANGE ADMINISTRATOR?: NO - Respiratory EXCHANGE ADMINISTRATOR Delivery Method: Trach Collar @% - Ventilator Settings SAO2 %: 60 - Medication Medications Administered During EXCHANGE ADMINISTRATOR: ATIVAN 1 MG IV; RACEPINEHRINE 2.25 MG DOUGIE TREATMENT - Diagnostic Test Ordered EKG: No Chest X-Ray: No CT Scan: No CPR started during EXCHANGE ADMINISTRATOR?: No - Vital Signs Vital Signs: Rapid Response Vital Sign Blood Pressure 128/81 Pulse Rate 126 Respiratory Rate 33 Temperature 99 F Oxygen Saturation 93 - Time EXCHANGE ADMINISTRATOR Ended Time EXCHANGE ADMINISTRATOR Ended: 11:47 - Vital Signs at end of EXCHANGE ADMINISTRATOR Vital Signs at end of EXCHANGE ADMINISTRATOR: Rapid Response End Vital Sign Blood Pressure 156/84 Pulse Rate 115 Respiratory Rate 33 Temperature 99 F O2 Sat by Pulse Oximetry 97 - Recommendations Notifications: Attending Physician - Respiratory Oxygen Delivery Method: Trach Collar @% - Head Head Exam: NORMAL INSPECTION - Eyes Eye Exam: EOMI, Normal appearance, PERRL - Respiratory Exam Respiratory Exam: Rhonchi, NORMAL BREATHING PATTERN - Cardiovascular Exam Cardiovascular Exam: Tachycardia, +S1, +S2 - GI/Abdominal Exam GI & Abdominal Exam: Soft, Normal Bowel Sounds - Neurological Exam Neurological Exam: Alert, Awake, CN II-XII Intact Plan - Assessment of Findings&Treatment Plan Patient well known to medical staff. EXCHANGE ADMINISTRATOR was called due to patient feeling itchiness in the back of her throat after receiving contrast for a soft neck CT scan. Has trach collar in place. Patient had recent flexible laryngoscopy with Dr. Keller. There was noted granulation tissue causing a possible obstructing effect when patient exhales when scope was placed in trach tube. Patient was suctioned with some success. Plan: -IV Solumedrol -Benadryl -IV Pepcid -Suctioning -Transferred back to ICU Case discussed with Dr. Mikal Santoyo PGY2 <Sera Ren V - Last Filed: 12/05/17 23:52> EXCHANGE ADMINISTRATOR Nurses Assessment - Vital Signs Vital Signs: Rapid Response Vital Sign Blood Pressure 128/81 Pulse Rate 126 Respiratory Rate 33 Temperature 99 F Oxygen Saturation 93 - Vital Signs at end of EXCHANGE ADMINISTRATOR Vital Signs at end of EXCHANGE ADMINISTRATOR: Rapid Response End Vital Sign Blood Pressure 156/84 Pulse Rate 115 Respiratory Rate 33 Temperature 99 F O2 Sat by Pulse Oximetry 97 Attending/Attestation - Attestation I have personally seen and examined this patient.: Yes I have fully participated in the care of the patient.: Yes I have reviewed all pertinent clinical information, including history, physical exam and plan: Yes Notes (Text): This is a late computer entry for 12/03/2017. Brief hospitalist note Responded to allergic reaction to IV contrast. Patient order for CT neck with IV contrast per ENT patient noted that itchiness in back of the throat patient is speaking on aware of IV contrast allergy per electronic technician. Patient ordered for Solu-Medrol , Benadryl, and Pepcid, repeat x-ray. A she brought back to her room in telemetry. Speaking in discussed with patient's nurse is at bedside as well.
--- NOTE | 2017-12-03 16:43 | RAD ---
HISTORY: s/p trach placement COMPARISON: Chest x-ray performed 11/30/17 TECHNIQUE: Chest, one view. FINDINGS: Examination limited by habitus and hypoinflation. Face mask obscures evaluation of the right lung apex. Tracheostomy tube. LUNGS: Left lower lobe infiltrate. Mild pulmonary venous congestion. PLEURA: No significant pleural effusion identified. No definite pneumothorax . CARDIOVASCULAR: Cardiomegaly. OSSEOUS STRUCTURES: Degenerative changes. VISUALIZED UPPER ABDOMEN: Unremarkable. OTHER FINDINGS: None. IMPRESSION: Hypoinflation. Cardiomegaly. Left lower lobe infiltrate. Mild pulmonary venous congestion. Tracheostomy tube.
--- NOTE | 2017-12-03 17:08 | CT ---
Date of service: 12/03/2017.. PROCEDURE: CT NECK WITH CONTRAST HISTORY: Tracheal granuloma at tip of tracheostomy tube. COMPARISON: None available.. TECHNIQUE: Contiguous helical-transaxial sections of the CT of the neck with intravenous contrast. Coronal and sagittal reformats generated. Intravenous contrast dose: 100 cc Visipaque 320 Radiation dose: DLP 493.85 mGy-cm This CT exam was performed using one or more of the following dose reduction techniques: Automated exposure control, adjustment of the mA and/or kV according to patient size, and/or use of iterative reconstruction technique.. FINDINGS: Study reveals in situ tracheostomy to of. There is a elliptical shaped soft tissue density within the lateral margin of the trachea just at the level of the inferior tip of the tracheostomy tube which measures approximately 2.4 x 1.5 cm a greatest dimensions and encroaches nearly obliterating the airway at the this level. Findings likely represent a granuloma as per history however biopsy will likely required to confirm and exclude other pathology. The airway is also obliterated at the level of the true and false cords up possibly due to phonation or Valsalva at the time of image acquisition. No obvious masses are identified. There is mild irregularity of the vallecula which could be due to encroaching lingual tonsil and some retained secretion. Surrounding the thyroid gland is somewhat heterogeneous likely due to crossing streak and beam hardening artifact arising from dense clavicles shoulder girdles as well as tracheostomy to hardware. The parotid and submandibular glands unremarkable. No significant cervical adenopathy. 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 This nearly completely obliterates the airway at this level.. See above discussion for additional details.
[2017-12-03] MEDS: guaiFENesin 100 mg/5 ml Syrup UD PO PRN (19:07)
[2017-12-03] MEDS: guaiFENesin 100 mg/5 ml Syrup UD PO SCH ×2 (20:19→23:53)
--- NOTE | 2017-12-03 22:05 | CP.PCM.PN ---
Subjective - Date & Time of Evaluation Date of Evaluation: 12/03/17 Time of Evaluation: 08:27 - Subjective Subjective: dictated Objective - Vital Signs/Intake and Output Vital Signs (last 24 hours): Temp Pulse Resp BP Pulse Ox 97.5 F L 86 18 145/96 H 100 12/03/17 18:00 12/03/17 20:00 12/03/17 20:00 12/03/17 20:00 12/03/17 20:00 Intake and Output: 12/03/17 12/04/17 18:59 06:59 Output Total 700 Balance -700 - Medications Medications: Current Medications Acetaminophen (Tylenol 325mg Tab) 650 mg PO Q6H PRN PRN Reason: Pain, Mild (1-3) Albuterol/Ipratropium (Duoneb 3 Mg/0.5 Mg (3 Ml) Ud) 3 ml INH RQ4 [facility] Last Admin: 12/03/17 20:40 Dose: 3 ml Dextrose (Dextrose 50% Inj) 0 ml IV STAT PRN; Protocol PRN Reason: Hypoglycemia Protocol Dextrose (Glutose 15) 0 gm PO ONCE PRN; Protocol PRN Reason: Hypoglycemia Protocol Enoxaparin Sodium (Lovenox) 40 mg SC DAILY [facility] Last Admin: 12/03/17 10:18 Dose: 40 mg Gabapentin (Neurontin) 800 mg PO TID [facility] Last Admin: 12/03/17 19:09 Dose: 800 mg Glucagon (Glucagen Diagnostic Kit) 0 mg IM STAT PRN; Protocol PRN Reason: Hypoglycemia Protocol Guaifenesin (Robitussin) 100 mg PO Q4H [facility] Last Admin: 12/03/17 20:19 Dose: 100 mg Insulin Glargine (Lantus) 17 unit SC AC [facility] Last Admin: 12/03/17 17:08 Dose: 17 units Insulin Human Regular (Novolin R) 0 unit SC ACHS [facility]; Protocol Last Admin: 12/03/17 21:37 Dose: 4 units Lorazepam (Ativan) 0.5 mg PO BID PRN PRN Reason: Anxiety Last Admin: 12/03/17 12:25 Dose: 0.5 mg Methylprednisolone (Solu-Medrol) 60 mg IVP Q8 [facility] Last Admin: 12/03/17 21:21 Dose: 60 mg Montelukast Sodium (Singulair) 10 mg PO HS [facility] Last Admin: 12/03/17 21:22 Dose: 10 mg Pantoprazole Sodium (Protonix Ec Tab) 20 mg PO DAILY [facility] Last Admin: 12/03/17 10:18 Dose: 20 mg Quetiapine Fumarate (Seroquel Xr) 400 mg PO Q12 [facility] Last Admin: 12/03/17 21:22 Dose: 400 mg Sertraline HCl (Zoloft) 100 mg PO BID [facility] Last Admin: 12/03/17 19:09 Dose: 100 mg Tramadol HCl (Ultram) 50 mg PO Q6 PRN PRN Reason: Pain, Mild (1-3) Last Admin: 12/03/17 17:06 Dose: 50 mg Trazodone HCl (Desyrel) 150 mg PO HS [facility] Last Admin: 12/03/17 21:22 Dose: 150 mg - Labs Labs: 11/30/17 00:09 11/30/17 01:07
[2017-12-04] MEDS: Albuterol-Ipratrop 3 mg / 0.5 (3 ml) UD INH SCH ×7 (00:49→23:48)
[2017-12-04] MEDS: guaiFENesin 100 mg/5 ml Syrup UD PO SCH ×5 (04:23→20:13)
[2017-12-04] MEDS: MethylPREDNISolone 40 mg Vial IVP SCH ×3 (05:34→21:25)
[2017-12-04 05:55] LABS: BASO % 0.1 % (0.0-2.0); HEMOGLOBIN 11.8 g/dL (11.0-16.0); LYMPH # 0.8 K/uL (1.0-4.3); LYMPH % 6.9 % (20.0-40.0); MEAN CELL VOLUME 77.5 fL (81.0-99.0); MEAN CORPUSCULAR HEMOGLOBIN 25.3 pg (27.0-31.0); MEAN CORPUSCULAR HGB CONC 32.6 g/dL (33.0-37.0); MEAN PLATELET VOLUME 8.7 fL (7.2-11.7); MONO # 0.6 K/uL (0.0-0.8); MONO % 4.9 % (0.0-10.0); NEUT # 10.5 K/uL (1.8-7.0); NEUT % 88.1 % (50.0-75.0); NRBC % 0.1 % (0.0-2.0); PLATELET COUNT 141 K/uL (130-400); RBC 4.65 Mil/uL (3.80-5.20); RED CELL DISTRIBUTION WIDTH 16.2 % (11.5-14.5); WHITE BLOOD COUNT 11.9 K/uL (4.8-10.8)
[2017-12-04 06:25] LABS: ALBUMIN 3.6 g/dL (3.5-5.0); ALT/SGPT 18 U/L (9-52); AST/SGOT 14 U/L (14-36); BLOOD UREA NITROGEN 27 mg/dL (7-17); CALCIUM 9.7 mg/dl (8.6-10.4); GFR NON-AFRICAN AMERICAN 51
--- NOTE | 2017-12-04 06:58 | PN ---
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 So, the patient will need this granulation tissue. Probably, in the meantime, she is getting episodes of cough, congestion, wheezing. She is afebrile. She is coughing, wheezing. Right now, she is not in any respiratory distress. PHYSICAL EXAMINATION: VITAL SIGNS: Blood pressure 145/98, pulse 86, respiratory rate 18, and temperature 97.5. LUNGS: Bilateral expiratory and inspiratory rhonchi. Decreased air entry. CVS: S1, S2, regular. ABDOMEN: Soft, nontender. Bowel sounds are positive. ASSESSMENT: 1. Acute exacerbation of bronchial asthma. 2. Tracheostomy complication with growth of granulation tissue obstructing tracheostomy, pending intervention. 3. Diabetes. 4. Depression. PLAN: Labs tomorrow morning. Follow up with ENT, CT Surgery. Monitor the patient. Ad Khan MD
--- NOTE | 2017-12-04 06:59 | PN ---
DATE: 12/01/2017 SUBJECTIVE: Carin Moser was seen by Cardiothoracic Surgery to re-evaluate her trachea. There is a possibility of extra granulation tissue around the tracheostomy and causing respiratory distress. The patient is coughing. She is congested and she has white sputum in the tracheostomy. The patient is afebrile. She is not in respiratory distress. She is anxious. Her blood sugars are high due to steroids. PHYSICAL EXAMINATION: VITAL SIGNS: Blood pressure 118/64, pulse 102, respiratory rate 18, and temperature 98. LUNGS: Bilateral rhonchi, scattered. Bilateral crackles, scattered. CARDIOVASCULAR SYSTEM: S1 and S2, regular. ABDOMEN: Soft, nontender. Bowel sounds are positive. ASSESSMENT: 1. Tracheostomy with complication, rule out granulation tissue around tracheostomy. 2. Exacerbation of bronchial asthma, on solu-medrol, oxygen and nebulizer. 3. Type 2 diabetes. Sugars are uncontrolled due to steroids. 4. Hypertension. PLAN: Continue current medications. Accu-Chek, sliding scale. No antibiotic unless the patient spikes or she has a white cell count. Monitor the patient. Ad Khan MD
[2017-12-04] MEDS: (Novolin R) Insulin Human Regular 100 units/ml vial SC SCH ×4 (08:15→21:28)
[2017-12-04] MEDS: (Lantus) Insulin Glargine, Recombinant SC SCH ×3 (08:15→16:51)
--- NOTE | 2017-12-04 08:32 | CP.PCM.PN ---
Subjective - Date & Time of Evaluation Date of Evaluation: 12/04/17 Time of Evaluation: 07:10 - Subjective Subjective: Cardiothoracic Surgery Pt seen and examined. No new issues overnight. Pt needs transfer to [facility] for Laser ablation/dilation of trachea. Objective - Vital Signs/Intake and Output Vital Signs (last 24 hours): Temp Pulse Resp BP Pulse Ox 97.5 F L 63 18 140/74 99 12/04/17 04:00 12/04/17 04:00 12/04/17 04:00 12/04/17 00:00 12/04/17 04:00 Intake and Output: 12/04/17 12/04/17 06:59 18:59 Intake Total 400 Output Total 800 Balance -400 - Medications Medications: Current Medications Acetaminophen (Tylenol 325mg Tab) 650 mg PO Q6H PRN PRN Reason: Pain, Mild (1-3) Albuterol/Ipratropium (Duoneb 3 Mg/0.5 Mg (3 Ml) Ud) 3 ml INH RQ4 [facility] Last Admin: 12/04/17 03:20 Dose: 3 ml Dextrose (Dextrose 50% Inj) 0 ml IV STAT PRN; Protocol PRN Reason: Hypoglycemia Protocol Dextrose (Glutose 15) 0 gm PO ONCE PRN; Protocol PRN Reason: Hypoglycemia Protocol Enoxaparin Sodium (Lovenox) 40 mg SC DAILY [facility] Last Admin: 12/03/17 10:18 Dose: 40 mg Gabapentin (Neurontin) 800 mg PO TID [facility] Last Admin: 12/03/17 19:09 Dose: 800 mg Glucagon (Glucagen Diagnostic Kit) 0 mg IM STAT PRN; Protocol PRN Reason: Hypoglycemia Protocol Guaifenesin (Robitussin) 100 mg PO Q4H [facility] Last Admin: 12/04/17 04:23 Dose: Not Given Insulin Glargine (Lantus) 17 unit SC AC [facility] Last Admin: 12/03/17 17:08 Dose: 17 units Insulin Human Regular (Novolin R) 0 unit SC ACHS [facility]; Protocol Last Admin: 12/03/17 21:37 Dose: 4 units Lorazepam (Ativan) 0.5 mg PO BID PRN PRN Reason: Anxiety Last Admin: 12/04/17 00:31 Dose: 0.5 mg Methylprednisolone (Solu-Medrol) 60 mg IVP Q8 [facility] Last Admin: 12/04/17 05:34 Dose: 60 mg Montelukast Sodium (Singulair) 10 mg PO HS [facility] Last Admin: 12/03/17 21:22 Dose: 10 mg Pantoprazole Sodium (Protonix Ec Tab) 20 mg PO DAILY [facility] Last Admin: 12/03/17 10:18 Dose: 20 mg Quetiapine Fumarate (Seroquel Xr) 400 mg PO Q12 [facility] Last Admin: 12/03/17 21:22 Dose: 400 mg Sertraline HCl (Zoloft) 100 mg PO BID [facility] Last Admin: 12/03/17 19:09 Dose: 100 mg Tramadol HCl (Ultram) 50 mg PO Q6 PRN PRN Reason: Pain, Mild (1-3) Last Admin: 12/04/17 05:57 Dose: 50 mg Trazodone HCl (Desyrel) 150 mg PO HS [facility] Last Admin: 12/03/17 21:22 Dose: 150 mg - Labs Labs: 12/04/17 05:48 12/04/17 05:49 - Constitutional Appears: Non-toxic, No Acute Distress - Head Exam Head Exam: ATRAUMATIC, NORMOCEPHALIC - Eye Exam Eye Exam: EOMI. absent: Scleral icterus - ENT Exam Additional comments: tracheostomy in place - Respiratory Exam Respiratory Exam: absent: Accessory Muscle Use, Respiratory Distress - Cardiovascular Exam Cardiovascular Exam: RRR, +S1, +S2 - Neurological Exam Neurological Exam: Alert, Awake - Skin Skin Exam: Dry, Warm Assessment and Plan - Assessment and Plan (Free Text) Assessment: 62F with chronic tracheostomy tube in place, possible granuloma in the tracheal lumen Plan: Pt needs transfer to [facility] for treatment: Laser ablation/dilation of trachea. CT trachea reviewed Medical management per ICU and primary D/W Dr. Linda Mishra PGY4
[2017-12-04 09:01] LABS: ANISOCYTOSIS SLIGHT; HYPOCHROMIC SLIGHT; LYMPHOCYTE 6 % (20-40); MONOCYTE 3 % (0-10); NEUTROPHIL 91 % (50-75); PLATELET ESTIMATE NORMAL (NORMAL); TOTAL CELLS COUNTED 100
[2017-12-04 09:02] LABS: POLYCHROMIC SLIGHT
[2017-12-04] MEDS: QUEtiapine 200 mg XR Tab PO SCH ×2 (10:44→21:25)
[2017-12-04] MEDS: Pantoprazole 20 mg EC Tab PO SCH (10:44)
[2017-12-04] MEDS: Enoxaparin 40 mg Syringe SC SCH (10:44)
--- NOTE | 2017-12-04 13:04 | CP.PCM.CON ---
History of Present Illness - History of Present Illness History of Present Illness: Pulmonary consult, Covering Dr Rosado The patient was Seen/interviewed and examined by me at the bedside, Medical records reviewed and Management issues were discussed and formulated with the house staff. Events reviewed 61 year old female with PMHx of COPD, Asthma, CHF, DM, Anxiety,bipolar disorder and recurrent mucous plugs in tracheostomy, Who was brought to ED on 11/29 for shortness of breath and increased secretions coming from her tracheostomy site. Patient was recently hospitalized and discharged from [facility] on 11/27/17 with diagnosis of bronchial asthma exacerbation, tracheobronchitis and discharged with Rxs for Prednisone 10mg daily, Guafenesin 200mg PRN. Patient's trachesotomy was suctioned and found to have large amount of mucous. 12/03 ALCOHOL RUBBER was called due to patient feeling itchiness in the back of her throat after receiving contrast for a soft neck CT scan. Has trach collar in place. She was evaluated by thoracic surgery for possible granuloma in the tracheal lumen Patient also had recent flexible laryngoscopy with Dr. Keller, noted granulation tissue causing a possible obstructing effect when patient exhales when scope was placed in trach tube. Patient OOB comfortably, NAD. Pt AAO x3. Alert, follows commands Patient states improved dyspnea, Denies chest pain. Continued on supplemental oxygen via Trach Patient denied fever or chills Review of Systems - Review of Systems Systems not reviewed;Unavailable: Acuity of Condition - Constitutional Constitutional: Fatigue. absent: Chills, Daytime Sleepiness, Excessive Sweating, Fever - Cardiovascular Cardiovascular: absent: Chest Pain, Chest Pain at Rest, Chest Pain with Activity, Claudication - Respiratory Respiratory: Cough, Dyspnea, Dyspnea on Exertion. absent: Hemoptysis, Wheezing, Snoring - Gastrointestinal Gastrointestinal: absent: Abdominal Pain Past Patient History - Infectious Disease Hx of Infectious Diseases: None - Tetanus Immunizations Tetanus Immunization: Unknown - Past Medical History & Family History Past Medical History?: Yes - Past Social History Smoking Status: Never Smoked Alcohol: None Drugs: Denies - CARDIAC Hx Congestive Heart Failure: Yes Hx Hypertension: Yes - PULMONARY Hx Chronic Obstructive Pulmonary Disease (COPD): Yes - NEUROLOGICAL Hx Seizures: Yes - HEENT Hx HEENT Problems: Yes Hx Cataracts: Yes - RENAL Hx Chronic Kidney Disease: No - ENDOCRINE/METABOLIC Hx Hypothyroidism: No - HEMATOLOGICAL/ONCOLOGICAL Hx Human Immunodeficiency Virus (HIV): No - INTEGUMENTARY Hx Dermatological Problems: No - MUSCULOSKELETAL/RHEUMATOLOGICAL Hx Falls: No - GASTROINTESTINAL Hx Gall Bladder Disease: Yes - GENITOURINARY/GYNECOLOGICAL Hx Sexually Transmitted Disorders: No - PSYCHIATRIC Hx Anxiety: Yes Hx Bipolar Disorder: Yes Hx Depression: Yes Hx Substance Use: No - SURGICAL HISTORY Hx Appendectomy: Yes Hx Cholecystectomy: Yes - ANESTHESIA Hx Anesthesia: Yes Hx Anesthesia Reactions: No Hx Malignant Hyperthermia: No Has any member of the family had a problem w/ anesthesia?: No Meds Home Medications: Home Medication List Medication Instructions Recorded Confirmed Type RX: Acetaminophen [Tylenol 325mg 650 mg PO Q6H PRN tab 12/08/17 Rx tab] RX: Albuterol/Ipratropium [Duoneb 3 ml INH RQ4 neb 12/08/17 Rx 3 mg/0.5 mg (3 ml) UD] RX: Gabapentin [Neurontin] 800 mg PO TID tab 12/08/17 Rx RX: Insulin Glargine, Recombina 17 unit SC AC unit 12/08/17 Rx [Lantus] RX: Insulin Human Regular [Novolin 0 unit SC ACHS unit 12/08/17 Rx R] RX: LORazepam [Ativan] 0.5 mg PO BID PRN tab 12/08/17 Rx RX: Montelukast [Singulair] 10 mg PO HS tab 12/08/17 Rx RX: Pantoprazole [Protonix EC Tab] 20 mg PO DAILY ect 12/08/17 Rx RX: QUEtiapine [Seroquel XR] [address] 12/08/17 Rx RX: Sertraline [Zoloft] 100 mg PO BID tab 12/08/17 Rx RX: guaiFENesin [Robitussin] 200 mg PO Q4H [facility] 12/08/17 Rx RX: predniSONE [predniSONE Tab] 30 mg PO DAILY tab 12/08/17 Rx RX: traMADol [Ultram] 50 mg PO Q6 PRN #1 tab 12/08/17 Rx RX: traZODone [Desyrel] 150 mg PO HS tab 12/08/17 Rx Allergies/Adverse Reactions: Allergies Allergy/AdvReac Type Severity Reaction Status Date / Time aspirin Allergy ANAPHYLAXIS Verified 11/29/17 23:33 ceftriaxone sodium Allergy ANAPHYLAXIS Verified 11/29/17 23:33 [From Rocephin] ibuprofen [From Motrin] Allergy ANAPHYLAXIS Verified 11/29/17 23:33 iodine Allergy ANAPHYLAXIS Verified 11/29/17 23:33 raspberry Allergy ANAPHYLAXIS Verified 11/29/17 23:33 - Medications Medications: Current Medications Acetaminophen (Tylenol 325mg Tab) 650 mg PO Q6H PRN PRN Reason: Pain, Mild (1-3) Albuterol/Ipratropium (Duoneb 3 Mg/0.5 Mg (3 Ml) Ud) 3 ml INH RQ4 [facility] Last Admin: 12/04/17 11:18 Dose: 3 ml Dextrose (Dextrose 50% Inj) 0 ml IV STAT PRN; Protocol PRN Reason: Hypoglycemia Protocol Dextrose (Glutose 15) 0 gm PO ONCE PRN; Protocol PRN Reason: Hypoglycemia Protocol Enoxaparin Sodium (Lovenox) 40 mg SC DAILY [facility] Last Admin: 12/04/17 10:44 Dose: 40 mg Gabapentin (Neurontin) 800 mg PO TID [facility] Last Admin: 12/04/17 10:44 Dose: 800 mg Glucagon (Glucagen Diagnostic Kit) 0 mg IM STAT PRN; Protocol PRN Reason: Hypoglycemia Protocol Guaifenesin (Robitussin) 100 mg PO Q4H [facility] Last Admin: 12/04/17 12:14 Dose: 100 mg Insulin Glargine (Lantus) 17 unit SC AC [facility] Last Admin: 12/04/17 12:14 Dose: 17 units Insulin Human Regular (Novolin R) 0 unit SC ACHS [facility]; Protocol Last Admin: 12/04/17 12:15 Dose: 8 units Lorazepam (Ativan) 0.5 mg PO BID PRN PRN Reason: Anxiety Last Admin: 12/04/17 00:31 Dose: 0.5 mg Methylprednisolone (Solu-Medrol) 60 mg IVP Q8 [facility] Last Admin: 12/04/17 05:34 Dose: 60 mg Montelukast Sodium (Singulair) 10 mg PO HS [facility] Last Admin: 12/03/17 21:22 Dose: 10 mg Pantoprazole Sodium (Protonix Ec Tab) 20 mg PO DAILY [facility] Last Admin: 12/04/17 10:44 Dose: 20 mg Quetiapine Fumarate (Seroquel Xr) 400 mg PO Q12 [facility] Last Admin: 12/04/17 10:44 Dose: 400 mg Sertraline HCl (Zoloft) 100 mg PO BID [facility] Last Admin: 12/04/17 10:44 Dose: 100 mg Tramadol HCl (Ultram) 50 mg PO Q6 PRN PRN Reason: Pain, Mild (1-3) Last Admin: 12/04/17 05:57 Dose: 50 mg Trazodone HCl (Desyrel) 150 mg PO [facility] Last Admin: 12/03/17 21:22 Dose: 150 mg Physical Exam - Head Exam Head Exam: ATRAUMATIC, NORMAL INSPECTION - Eye Exam Eye Exam: EOMI, Normal appearance, PERRL Pupil Exam: NORMAL ACCOMODATION, PERRL - ENT Exam ENT Exam: Mucous Membranes Moist, Normal Exam - Neck Exam Neck exam: Negative for: Normal Inspection (Trach site clean, intact) - Respiratory Exam Respiratory Exam: Clear to Auscultation Bilateral, NORMAL BREATHING PATTERN - Cardiovascular Exam Cardiovascular Exam: REGULAR RHYTHM - GI/Abdominal Exam GI & Abdominal Exam: Normal Bowel Sounds, Soft. absent: Tenderness Results - Vital Signs Recent Vital Signs: Last Vital Signs Temp 97.4 F L 12/04/17 08:00 Pulse 58 L 12/04/17 08:00 Resp 18 12/04/17 08:00 BP 169/91 H 12/04/17 08:00 Pulse Ox 100 12/04/17 08:00 - Labs Result Diagrams: 12/04/17 05:48 12/04/17 05:49 Labs: Laboratory Results - last 24 hr 12/03/17 12/03/17 12/03/17 11:22 16:14 21:30 WBC RBC Hgb Hct MCV MCH MCHC RDW Plt Count MPV Neut % (Auto) Lymph % (Auto) [place] % (Auto) Eos % (Auto) Baso % (Auto) Neut # (Auto) Lymph # (Auto) [place] # (Auto) Eos # (Auto) Baso # (Auto) Neutrophils % (Manual) Lymphocytes % (Manual) Monocytes % (Manual) Platelet Estimate Polychromasia Hypochromasia (manual) Anisocytosis (manual) Sodium Potassium Chloride Carbon Dioxide Anion Gap BUN Creatinine Est GFR ( Amer) Est GFR (Non-Af Amer) POC Glucose (mg/dL) 299 H 240 H 405 H* Random Glucose Calcium Total Bilirubin AST ALT Alkaline Phosphatase Total Protein Albumin Globulin Albumin/Globulin Ratio 12/04/17 12/04/17 12/04/17 05:48 05:49 07:11 WBC 11.9 H RBC 4.65 Hgb 11.8 Hct 36.0 MCV 77.5 L MCH 25.3 L MCHC 32.6 L RDW 16.2 H Plt Count 141 MPV 8.7 Neut % (Auto) 88.1 H Lymph % (Auto) 6.9 L [place] % (Auto) 4.9 Eos % (Auto) 0.0 Baso % (Auto) 0.1 Neut # (Auto) 10.5 H Lymph # (Auto) 0.8 L [place] # (Auto) 0.6 Eos # (Auto) 0.0 Baso # (Auto) 0.0 Neutrophils % (Manual) 91 H Lymphocytes % (Manual) 6 L Monocytes % (Manual) 3 Platelet Estimate Normal Polychromasia Slight Hypochromasia (manual) Slight Anisocytosis (manual) Slight Sodium 141 Potassium 4.4 Chloride 99 Carbon Dioxide 30 Anion Gap 16 BUN 27 H Creatinine 1.1 Est GFR ( Amer) > 60 Est GFR (Non-Af Amer) 51 POC Glucose (mg/dL) 260 H Random Glucose 280 H Calcium 9.7 Total Bilirubin 0.5 AST 14 D ALT 18 Alkaline Phosphatase 143 H D Total Protein 7.3 Albumin 3.6 Globulin 3.7 Albumin/Globulin Ratio 1.0 12/04/17 12:01 WBC RBC Hgb Hct MCV MCH MCHC RDW Plt Count MPV Neut % (Auto) Lymph % (Auto) [place] % (Auto) Eos % (Auto) Baso % (Auto) Neut # (Auto) Lymph # (Auto) [place] # (Auto) Eos # (Auto) Baso # (Auto) Neutrophils % (Manual) Lymphocytes % (Manual) Monocytes % (Manual) Platelet Estimate Polychromasia Hypochromasia (manual) Anisocytosis (manual) Sodium Potassium Chloride Carbon Dioxide Anion Gap BUN Creatinine Est GFR ( Amer) Est GFR (Non-Af Amer) POC Glucose (mg/dL) 391 H Random Glucose Calcium Total Bilirubin AST ALT Alkaline Phosphatase Total Protein Albumin Globulin Albumin/Globulin Ratio Assessment & Plan (1) Tracheobronchitis Status: Acute Priority: High Comment: Patient also had recent flexible laryngoscopy with Dr. Keller, noted granulation tissue causing a possible obstructing effect when patient exhales when scope was placed in trach tube. Continue steroids, IV Solu-Medrol 60 mg IVP Q8H. Continue Singulair 10 mg PO HS. Continue nebulizer treatment. Aggressive pulmonary toilet, chest PT, suctioning (2) Respiratory distress Status: Acute Priority: High (3) Asthma exacerbation Status: Acute Priority: High (4) COPD (chronic obstructive pulmonary disease) Status: Acute Priority: High (5) Tracheal stenosis Status: Acute Priority: High (6) Anxiety and depression Status: Chronic
[2017-12-04] MEDS ORDERED: Racepinephrine 2.25% Inhal Soln 0.5 ML UD INH ONE (18:22)
--- NOTE | 2017-12-04 21:47 | CP.PCM.PN ---
Subjective - Date & Time of Evaluation Date of Evaluation: 12/04/17 Time of Evaluation: 08:26 - Subjective Subjective: dictated Objective - Vital Signs/Intake and Output Vital Signs (last 24 hours): Temp Pulse Resp BP Pulse Ox 98.3 F 98 H 18 151/102 H 97 12/04/17 20:00 12/04/17 19:00 12/04/17 19:00 12/04/17 19:00 12/04/17 19:00 Intake and Output: 12/04/17 12/05/17 18:59 06:59 Intake Total 930 Output Total 750 Balance 180 - Medications Medications: Current Medications Acetaminophen (Tylenol 325mg Tab) 650 mg PO Q6H PRN PRN Reason: Pain, Mild (1-3) Albuterol/Ipratropium (Duoneb 3 Mg/0.5 Mg (3 Ml) Ud) 3 ml INH RQ4 [facility] Last Admin: 12/04/17 20:12 Dose: 3 ml Dextrose (Dextrose 50% Inj) 0 ml IV STAT PRN; Protocol PRN Reason: Hypoglycemia Protocol Dextrose (Glutose 15) 0 gm PO ONCE PRN; Protocol PRN Reason: Hypoglycemia Protocol Enoxaparin Sodium (Lovenox) 40 mg SC DAILY [facility] Last Admin: 12/04/17 10:44 Dose: 40 mg Gabapentin (Neurontin) 800 mg PO TID [facility] Last Admin: 12/04/17 17:18 Dose: 800 mg Glucagon (Glucagen Diagnostic Kit) 0 mg IM STAT PRN; Protocol PRN Reason: Hypoglycemia Protocol Guaifenesin (Robitussin) 100 mg PO Q4H [facility] Last Admin: 12/04/17 20:13 Dose: 100 mg Insulin Glargine (Lantus) 17 unit SC AC [facility] Last Admin: 12/04/17 16:51 Dose: 17 units Insulin Human Regular (Novolin R) 0 unit SC ACHS [facility]; Protocol Last Admin: 12/04/17 21:28 Dose: Not Given Lorazepam (Ativan) 0.5 mg PO BID PRN PRN Reason: Anxiety Last Admin: 12/04/17 16:51 Dose: 0.5 mg Methylprednisolone (Solu-Medrol) 60 mg IVP Q8 [facility] Last Admin: 12/04/17 21:25 Dose: 60 mg Montelukast Sodium (Singulair) 10 mg PO HS [facility] Last Admin: 12/04/17 21:25 Dose: 10 mg Pantoprazole Sodium (Protonix Ec Tab) 20 mg PO DAILY [facility] Last Admin: 12/04/17 10:44 Dose: 20 mg Quetiapine Fumarate (Seroquel Xr) 400 mg PO Q12 [facility] Last Admin: 12/04/17 21:25 Dose: 400 mg Sertraline HCl (Zoloft) 100 mg PO BID [facility] Last Admin: 12/04/17 17:18 Dose: 100 mg Tramadol HCl (Ultram) 50 mg PO Q6 PRN PRN Reason: Pain, Mild (1-3) Last Admin: 12/04/17 18:02 Dose: 50 mg Trazodone HCl (Desyrel) 150 mg PO HS [facility] Last Admin: 12/04/17 21:27 Dose: 150 mg - Labs Labs: 12/04/17 05:48 12/04/17 05:49
[2017-12-05] MEDS: guaiFENesin 100 mg/5 ml Syrup UD PO SCH ×6 (00:07→21:19)
[2017-12-05] MEDS: Albuterol-Ipratrop 3 mg / 0.5 (3 ml) UD INH SCH ×6 (03:15→23:43)
[2017-12-05] MEDS: MethylPREDNISolone 40 mg Vial IVP SCH ×3 (05:58→21:21)
--- NOTE | 2017-12-05 05:58 | PN ---
DATE: 12/04/2017 SUBJECTIVE: Carin Moser has been seen by Cardiothoracic Surgery and the patient needs a transfer to [facility] for laser ablation and dilation of trachea. I agree with transfer and Cardiothoracic Surgery will arrange transfer. In the meantime, the patient is coughing. She is congested. She is afebrile. The patient is not in distress at the moment. She complaints of congestion and wheezing. PHYSICAL EXAMINATION: VITAL SIGNS: Blood pressure is 151/102, pulse 98, respiratory rate 18, temperature 98.3. LUNGS: Positive inspiratory and expiratory rhonchi. Decreased air entry. CVS: S1, S2 regular. ABDOMEN: Soft and nontender. Bowel sounds are positive. ASSESSMENT: 1. Tracheostomy with granulation tissue in the tracheostomy blocking tracheostomy. 2. Bronchial asthma. 3. Type 2 diabetes. 4. Hypertension. PLAN: Medical management. Transfer to [facility]. Monitor patient. Ad Khan MD
[2017-12-05] MEDS: (Novolin R) Insulin Human Regular 100 units/ml vial SC SCH ×4 (07:51→21:18)
[2017-12-05] MEDS: (Lantus) Insulin Glargine, Recombinant SC SCH ×3 (07:51→16:47)
[2017-12-05] MEDS: Pantoprazole 20 mg EC Tab PO SCH (09:03)
[2017-12-05] MEDS: QUEtiapine 200 mg XR Tab PO SCH ×2 (09:03→21:19)
[2017-12-05] MEDS: Enoxaparin 40 mg Syringe SC SCH (09:03)
--- NOTE | 2017-12-05 23:56 | CP.PCM.PN ---
Subjective - Date & Time of Evaluation Date of Evaluation: 12/05/17 Time of Evaluation: 08:31 - Subjective Subjective: dictated Objective - Vital Signs/Intake and Output Vital Signs (last 24 hours): Temp Pulse Resp BP Pulse Ox 98.4 F 76 16 153/87 H 95 12/05/17 20:00 12/05/17 20:00 12/05/17 20:00 12/05/17 20:00 12/05/17 20:00 Intake and Output: 12/05/17 12/06/17 18:59 06:59 Intake Total 1080 Output Total 800 500 Balance 280 -500 - Medications Medications: Current Medications Acetaminophen (Tylenol 325mg Tab) 650 mg PO Q6H PRN PRN Reason: Pain, Mild (1-3) Albuterol/Ipratropium (Duoneb 3 Mg/0.5 Mg (3 Ml) Ud) 3 ml INH RQ4 [facility] Last Admin: 12/05/17 23:43 Dose: 3 ml Dextrose (Dextrose 50% Inj) 0 ml IV STAT PRN; Protocol PRN Reason: Hypoglycemia Protocol Dextrose (Glutose 15) 0 gm PO ONCE PRN; Protocol PRN Reason: Hypoglycemia Protocol Enoxaparin Sodium (Lovenox) 40 mg SC DAILY [facility] Last Admin: 12/05/17 09:03 Dose: 40 mg Gabapentin (Neurontin) 800 mg PO TID [facility] Last Admin: 12/05/17 18:06 Dose: 800 mg Glucagon (Glucagen Diagnostic Kit) 0 mg IM STAT PRN; Protocol PRN Reason: Hypoglycemia Protocol Guaifenesin (Robitussin) 100 mg PO Q4H [facility] Last Admin: 12/05/17 21:19 Dose: 100 mg Insulin Glargine (Lantus) 17 unit SC AC [facility] Last Admin: 12/05/17 16:47 Dose: 17 units Insulin Human Regular (Novolin R) 0 unit SC ACHS [facility]; Protocol Last Admin: 12/05/17 21:18 Dose: Not Given Lorazepam (Ativan) 0.5 mg PO BID PRN PRN Reason: Anxiety Last Admin: 12/05/17 21:18 Dose: 0.5 mg Methylprednisolone (Solu-Medrol) 60 mg IVP Q8 [facility] Last Admin: 12/05/17 21:21 Dose: 60 mg Montelukast Sodium (Singulair) 10 mg PO HS [facility] Last Admin: 12/05/17 21:19 Dose: 10 mg Pantoprazole Sodium (Protonix Ec Tab) 20 mg PO DAILY [facility] Last Admin: 12/05/17 09:03 Dose: 20 mg Quetiapine Fumarate (Seroquel Xr) 400 mg PO Q12 [facility] Last Admin: 12/05/17 21:19 Dose: 400 mg Sertraline HCl (Zoloft) 100 mg PO BID [facility] Last Admin: 12/05/17 18:05 Dose: 100 mg Tramadol HCl (Ultram) 50 mg PO Q6 PRN PRN Reason: Pain, Mild (1-3) Last Admin: 12/05/17 06:15 Dose: 50 mg Trazodone HCl (Desyrel) 150 mg PO HS [facility] Last Admin: 12/05/17 21:19 Dose: 150 mg - Labs Labs: 12/04/17 05:48 12/04/17 05:49
[2017-12-06] MEDS: Albuterol-Ipratrop 3 mg / 0.5 (3 ml) UD INH SCH ×6 (03:25→23:34)
[2017-12-06] MEDS: guaiFENesin 100 mg/5 ml Syrup UD PO SCH ×7 (04:53→23:58)
--- NOTE | 2017-12-06 06:35 | PN ---
DATE: 12/05/2017 SUBJECTIVE: Carin Moser is for transfer to [facility] in [place] for removal of granulation tissue by laser. Surgery is in the process of making arrangements to go to [facility]. PHYSICAL EXAMINATION: VITAL SIGNS: Blood pressure 153/87, pulse 76, respiratory rate 16, temperature 98.4. LUNGS: Clear. No rales. No rhonchi. CARDIOVASCULAR SYSTEM: S1 and S2, regular. ABDOMEN: Soft and nontender. Bowel sounds are positive. ASSESSMENT: 1. Tracheal obstruction due to granulation tissue, pending transfer. 2. Bronchial asthma. 3. Type 2 diabetes. 4. Morbid obesity. PLAN: Monitor the patient. The patient is for transfer to [facility]. Ad Khan MD
[2017-12-06] MEDS: (Novolin R) Insulin Human Regular 100 units/ml vial SC SCH ×5 (08:00→23:58)
[2017-12-06] MEDS: (Lantus) Insulin Glargine, Recombinant SC SCH ×3 (08:00→16:34)
[2017-12-06] MEDS: Enoxaparin 40 mg Syringe SC SCH (10:15)
[2017-12-06] MEDS: MethylPREDNISolone 40 mg Vial IVP SCH ×2 (10:16→21:35)
[2017-12-06] MEDS: Pantoprazole 20 mg EC Tab PO SCH (10:16)
[2017-12-06] MEDS: QUEtiapine 200 mg XR Tab PO SCH ×2 (10:17→21:35)
--- NOTE | 2017-12-06 22:59 | CP.PCM.PN ---
Subjective - Date & Time of Evaluation Date of Evaluation: 12/06/17 Time of Evaluation: 08:33 - Subjective Subjective: dictated Objective - Vital Signs/Intake and Output Vital Signs (last 24 hours): Temp Pulse Resp BP Pulse Ox 98.2 F 96 H 22 148/94 H 98 12/06/17 16:00 12/06/17 18:00 12/06/17 16:00 12/06/17 16:00 12/06/17 16:00 Intake and Output: 12/06/17 12/07/17 18:59 06:59 Intake Total 400 Output Total 800 Balance -400 - Medications Medications: Current Medications Acetaminophen (Tylenol 325mg Tab) 650 mg PO Q6H PRN PRN Reason: Pain, Mild (1-3) Last Admin: 12/06/17 20:00 Dose: 650 mg Albuterol/Ipratropium (Duoneb 3 Mg/0.5 Mg (3 Ml) Ud) 3 ml INH RQ4 [facility] Last Admin: 12/06/17 19:54 Dose: 3 ml Dextrose (Dextrose 50% Inj) 0 ml IV STAT PRN; Protocol PRN Reason: Hypoglycemia Protocol Dextrose (Glutose 15) 0 gm PO ONCE PRN; Protocol PRN Reason: Hypoglycemia Protocol Enoxaparin Sodium (Lovenox) 40 mg SC DAILY [facility] Last Admin: 12/06/17 10:15 Dose: 40 mg Gabapentin (Neurontin) 800 mg PO TID [facility] Last Admin: 12/06/17 17:20 Dose: 800 mg Glucagon (Glucagen Diagnostic Kit) 0 mg IM STAT PRN; Protocol PRN Reason: Hypoglycemia Protocol Guaifenesin (Robitussin) 100 mg PO Q4H [facility] Last Admin: 12/06/17 20:23 Dose: 100 mg Insulin Glargine (Lantus) 17 unit SC AC [facility] Last Admin: 12/06/17 16:34 Dose: 17 units Insulin Human Regular (Novolin R) 0 unit SC ACHS [facility]; Protocol Last Admin: 12/06/17 16:34 Dose: 4 units Lorazepam (Ativan) 0.5 mg PO BID PRN PRN Reason: Anxiety Last Admin: 12/05/17 21:18 Dose: 0.5 mg Methylprednisolone (Solu-Medrol) 40 mg IVP Q12 [facility] Last Admin: 12/06/17 21:35 Dose: 40 mg Montelukast Sodium (Singulair) 10 mg PO HS [facility] Last Admin: 12/06/17 21:35 Dose: 10 mg Pantoprazole Sodium (Protonix Ec Tab) 20 mg PO DAILY [facility] Last Admin: 12/06/17 10:16 Dose: 20 mg Quetiapine Fumarate (Seroquel Xr) 400 mg PO Q12 [facility] Last Admin: 12/06/17 21:35 Dose: 400 mg Sertraline HCl (Zoloft) 100 mg PO BID [facility] Last Admin: 12/06/17 17:20 Dose: 100 mg Tramadol HCl (Ultram) 50 mg PO Q6 PRN PRN Reason: Pain, Mild (1-3) Last Admin: 12/06/17 17:23 Dose: 50 mg Trazodone HCl (Desyrel) 150 mg PO [facility] Last Admin: 12/06/17 21:36 Dose: 150 mg - Labs Labs: 12/04/17 05:48 12/04/17 05:49
[2017-12-07] MEDS: Albuterol-Ipratrop 3 mg / 0.5 (3 ml) UD INH SCH ×5 (03:19→19:39)
[2017-12-07] MEDS: guaiFENesin 100 mg/5 ml Syrup UD PO SCH ×6 (05:42→23:59)
[2017-12-07] MEDS: (Lantus) Insulin Glargine, Recombinant SC SCH ×3 (07:57→15:29)
[2017-12-07] MEDS: (Novolin R) Insulin Human Regular 100 units/ml vial SC SCH ×3 (08:00→15:30)
--- NOTE | 2017-12-07 09:13 | PN ---
DATE: 12/06/2017 SUBJECTIVE: aCrin Moser still gets episodes of cough, congestion, shortness of breath, and wheezing. She is waiting to be accepted into [facility] for laser removal of the granulation tissue in her tracheostomy. No fever. No chills. Decreased cough. Decreased congestion. Tapering steroids. PHYSICAL EXAMINATION: VITAL SIGNS: Blood pressure 148/94, pulse 81, respiratory rate 22, temperature 98.2. LUNGS: Decreased air entry. Positive rhonchi. CARDIOVASCULAR SYSTEM: S1 and S2 are regular. ABDOMEN: Soft, nontender. Bowel sounds are positive. ASSESSMENT: 1. Acute exacerbation of bronchial asthma. 2. Tracheal obstruction from granulation tissue. 3. Left lower lobe infiltrate. 4. Type 2 diabetes. 5. Anxiety and depression. PLAN: Waiting for transfer. Ad Khan MD
[2017-12-07] MEDS: Enoxaparin 40 mg Syringe SC SCH (09:37)
[2017-12-07] MEDS: QUEtiapine 200 mg XR Tab PO SCH ×2 (09:37→22:31)
[2017-12-07] MEDS: Pantoprazole 20 mg EC Tab PO SCH (09:37)
[2017-12-07] MEDS: MethylPREDNISolone 40 mg Vial IVP SCH ×2 (09:37→22:16)
[2017-12-07] MEDS ORDERED: Sodium Chloride 0.9% 20 ML IV ONE (14:35)
[2017-12-07] MEDS ORDERED: Lidocaine Hydrochloride 10 ML INJ ONE (14:35)
[2017-12-07] MEDS ORDERED: EPINEPHrine 1 mg/ml (1:1000) Inj ONE (14:35)
[2017-12-07] MEDS ORDERED: Midazolam 2 MG/2 ML VIAL IVP ONE (14:44)
[2017-12-07] MEDS ORDERED: Acetylcysteine 20% Inhal Soln (4ml) INH STA (14:52)
--- NOTE | 2017-12-07 16:23 | CP.PCM.PN ---
Subjective - Date & Time of Evaluation Date of Evaluation: 12/07/17 Time of Evaluation: 16:00 - Subjective Subjective: Patient seen and examined Patient is a 62 year old female with history of COPD, HTN, CHF, sp tracheostomy who presented for 2 day history of Productive cough. patient was recently treated for severe bronchitis. Patient was seen by ENT and found some granulation tissue on trach. CAT scan of the neck also consistent with granulation tissue. Bronchoscopy done today showed swelling of tracheal mucosa and copious secretions but no granulation tissue. PMH: COPD, HTN, CHF, sp tracheostomy, anxiety, depression, seizures PSH: appendectomy, cholecystectomy, tracheostomy Social hx: no tobacco, alcohol or drug use. Allergies: ASA, Rocephn, Ibuprofen, Iodine, raspberry Objective - Vital Signs/Intake and Output Vital Signs (last 24 hours): Temp Pulse Resp BP Pulse Ox 98.1 F 72 20 137/80 100 12/07/17 08:00 12/07/17 08:00 12/07/17 08:00 12/07/17 08:00 12/07/17 08:00 Intake and Output: 12/07/17 12/07/17 06:59 18:59 Intake Total 350 Output Total 400 Balance -50 - Medications Medications: Current Medications Acetaminophen (Tylenol 325mg Tab) 650 mg PO Q6H PRN PRN Reason: Pain, Mild (1-3) Last Admin: 12/06/17 20:00 Dose: 650 mg Albuterol/Ipratropium (Duoneb 3 Mg/0.5 Mg (3 Ml) Ud) 3 ml INH RQ4 [facility] Last Admin: 12/07/17 12:41 Dose: 3 ml Dextrose (Dextrose 50% Inj) 0 ml IV STAT PRN; Protocol PRN Reason: Hypoglycemia Protocol Dextrose (Glutose 15) 0 gm PO ONCE PRN; Protocol PRN Reason: Hypoglycemia Protocol Gabapentin (Neurontin) 800 mg PO TID [facility] Last Admin: 12/07/17 14:03 Dose: Not Given Glucagon (Glucagen Diagnostic Kit) 0 mg IM STAT PRN; Protocol PRN Reason: Hypoglycemia Protocol Guaifenesin (Robitussin) 100 mg PO Q4H [facility] Last Admin: 12/07/17 11:03 Dose: 100 mg Insulin Glargine (Lantus) 17 unit SC AC [facility] Last Admin: 12/07/17 15:29 Dose: Not Given Insulin Human Regular (Novolin R) 0 unit SC ACHS [facility]; Protocol Last Admin: 12/07/17 15:30 Dose: Not Given Methylprednisolone (Solu-Medrol) 40 mg IVP Q12 [facility] Last Admin: 12/07/17 09:37 Dose: 40 mg Montelukast Sodium (Singulair) 10 mg PO HS [facility] Last Admin: 12/06/17 21:35 Dose: 10 mg Pantoprazole Sodium (Protonix Ec Tab) 20 mg PO DAILY [facility] Last Admin: 12/07/17 09:37 Dose: 20 mg Quetiapine Fumarate (Seroquel Xr) 400 mg PO Q12 [facility] Last Admin: 12/07/17 09:37 Dose: 400 mg Sertraline HCl (Zoloft) 100 mg PO BID [facility] Last Admin: 12/07/17 09:38 Dose: 100 mg Tramadol HCl (Ultram) 50 mg PO Q6 PRN PRN Reason: Pain, Mild (1-3) Last Admin: 12/06/17 17:23 Dose: 50 mg Trazodone HCl (Desyrel) 150 mg PO [facility] Last Admin: 12/06/17 21:36 Dose: 150 mg - Labs Labs: 12/04/17 05:48 12/04/17 05:49 - Head Exam Head Exam: ATRAUMATIC, NORMOCEPHALIC - ENT Exam ENT Exam: Mucous Membranes Moist - Neck Exam Neck Exam: Normal Inspection - Respiratory Exam Respiratory Exam: Rhonchi, Wheezes - Cardiovascular Exam Cardiovascular Exam: REGULAR RHYTHM - GI/Abdominal Exam GI & Abdominal Exam: Soft, Normal Bowel Sounds - Extremities Exam Extremities Exam: Normal Inspection - Neurological Exam Neurological Exam: Alert Assessment and Plan (1) Tracheobronchitis Assessment & Plan: continue antibiotics IV steroids Nebulizer treatment Trachael aspirate for culture and sensitivity No granulation tissue seen on bronchoscopy Status: Acute (2) COPD (chronic obstructive pulmonary disease) Status: Acute (3) Tracheostomy dependence Status: Acute (4) Morbid obesity Status: Chronic
--- NOTE | 2017-12-07 23:26 | CP.PCM.PN ---
Subjective - Date & Time of Evaluation Date of Evaluation: 12/07/17 Time of Evaluation: 08:37 - Subjective Subjective: dictated Objective - Vital Signs/Intake and Output Vital Signs (last 24 hours): Temp Pulse Resp BP Pulse Ox 98.0 F 75 16 138/89 98 12/07/17 16:00 12/07/17 16:00 12/07/17 16:00 12/07/17 16:00 12/07/17 16:00 Intake and Output: 12/07/17 12/08/17 18:59 06:59 Intake Total 10 Output Total 700 Balance -690 - Medications Medications: Current Medications Acetaminophen (Tylenol 325mg Tab) 650 mg PO Q6H PRN PRN Reason: Pain, Mild (1-3) Last Admin: 12/06/17 20:00 Dose: 650 mg Albuterol/Ipratropium (Duoneb 3 Mg/0.5 Mg (3 Ml) Ud) 3 ml INH RQ4 [facility] Last Admin: 12/07/17 19:39 Dose: 3 ml Dextrose (Dextrose 50% Inj) 0 ml IV STAT PRN; Protocol PRN Reason: Hypoglycemia Protocol Dextrose (Glutose 15) 0 gm PO ONCE PRN; Protocol PRN Reason: Hypoglycemia Protocol Gabapentin (Neurontin) 800 mg PO TID [facility] Last Admin: 12/07/17 17:35 Dose: Not Given Glucagon (Glucagen Diagnostic Kit) 0 mg IM STAT PRN; Protocol PRN Reason: Hypoglycemia Protocol Guaifenesin (Robitussin) 100 mg PO Q4H [facility] Last Admin: 12/07/17 20:33 Dose: 100 mg Insulin Glargine (Lantus) 17 unit SC AC [facility] Last Admin: 12/07/17 15:29 Dose: Not Given Insulin Human Regular (Novolin R) 0 unit SC ACHS [facility]; Protocol Last Admin: 12/07/17 15:30 Dose: Not Given Lorazepam (Ativan) 0.5 mg PO BID PRN PRN Reason: Anxiety Methylprednisolone (Solu-Medrol) 40 mg IVP Q12 [facility] Last Admin: 12/07/17 22:16 Dose: 40 mg Montelukast Sodium (Singulair) 10 mg PO HS [facility] Last Admin: 12/07/17 22:16 Dose: 10 mg Pantoprazole Sodium (Protonix Ec Tab) 20 mg PO DAILY [facility] Last Admin: 12/07/17 09:37 Dose: 20 mg Quetiapine Fumarate (Seroquel Xr) 400 mg PO Q12 [facility] Last Admin: 12/07/17 22:31 Dose: 400 mg Sertraline HCl (Zoloft) 100 mg PO BID [facility] Last Admin: 12/07/17 17:36 Dose: Not Given Tramadol HCl (Ultram) 50 mg PO Q6 PRN PRN Reason: Pain, Mild (1-3) Last Admin: 12/07/17 18:20 Dose: 50 mg Trazodone HCl (Desyrel) 150 mg PO HS [facility] Last Admin: 12/07/17 22:22 Dose: 150 mg - Labs Labs: 12/04/17 05:48 12/04/17 05:49
[2017-12-08] MEDS: Albuterol-Ipratrop 3 mg / 0.5 (3 ml) UD INH SCH ×5 (00:59→15:50)
[2017-12-08] MEDS: guaiFENesin 100 mg/5 ml Syrup UD PO SCH ×4 (04:51→15:04)
[2017-12-08] MEDS: (Lantus) Insulin Glargine, Recombinant SC SCH ×3 (08:00→15:57)
[2017-12-08] MEDS: (Novolin R) Insulin Human Regular 100 units/ml vial SC SCH ×4 (08:01→17:24)
[2017-12-08] MEDS: MethylPREDNISolone 40 mg Vial IVP SCH (09:26)
[2017-12-08] MEDS: Pantoprazole 20 mg EC Tab PO SCH (09:27)
[2017-12-08] MEDS: QUEtiapine 200 mg XR Tab PO SCH (09:27)
--- NOTE | 2017-12-08 14:21 | CP.PCM.PN ---
Subjective - Date & Time of Evaluation Date of Evaluation: 12/08/17 Time of Evaluation: 09:00 - Subjective Subjective: patient seen and examined Cough much improved Status post bronchoscopy Afebrile Patient is awake and responsive Objective - Vital Signs/Intake and Output Vital Signs (last 24 hours): Temp Pulse Resp BP Pulse Ox 97.7 F 79 16 147/75 98 12/08/17 00:00 12/08/17 00:00 12/08/17 00:00 12/08/17 00:00 12/08/17 00:00 Intake and Output: 12/08/17 12/08/17 06:59 18:59 Intake Total 300 Output Total 500 Balance -200 - Medications Medications: Current Medications Acetaminophen (Tylenol 325mg Tab) 650 mg PO Q6H PRN PRN Reason: Pain, Mild (1-3) Last Admin: 12/06/17 20:00 Dose: 650 mg Albuterol/Ipratropium (Duoneb 3 Mg/0.5 Mg (3 Ml) Ud) 3 ml INH RQ4 [facility] Last Admin: 12/08/17 13:17 Dose: 3 ml Dextrose (Dextrose 50% Inj) 0 ml IV STAT PRN; Protocol PRN Reason: Hypoglycemia Protocol Dextrose (Glutose 15) 0 gm PO ONCE PRN; Protocol PRN Reason: Hypoglycemia Protocol Gabapentin (Neurontin) 800 mg PO TID [facility] Last Admin: 12/08/17 13:03 Dose: 800 mg Glucagon (Glucagen Diagnostic Kit) 0 mg IM STAT PRN; Protocol PRN Reason: Hypoglycemia Protocol Guaifenesin (Robitussin) 200 mg PO Q4H [facility] Last Admin: 12/08/17 11:00 Dose: 200 mg Insulin Glargine (Lantus) 17 unit SC AC [facility] Last Admin: 12/08/17 12:24 Dose: 17 units Insulin Human Regular (Novolin R) 0 unit SC ACHS [facility]; Protocol Last Admin: 12/08/17 12:23 Dose: 6 units Lorazepam (Ativan) 0.5 mg PO BID PRN PRN Reason: Anxiety Last Admin: 12/07/17 23:58 Dose: 0.5 mg Montelukast Sodium (Singulair) 10 mg PO HS [facility] Last Admin: 12/07/17 22:16 Dose: 10 mg Pantoprazole Sodium (Protonix Ec Tab) 20 mg PO DAILY [facility] Last Admin: 12/08/17 09:27 Dose: 20 mg Prednisone (Prednisone Tab) 30 mg PO DAILY [facility] Last Admin: 12/08/17 11:45 Dose: 30 mg Quetiapine Fumarate (Seroquel Xr) 400 mg PO Q12 [facility] Last Admin: 12/08/17 09:27 Dose: 400 mg Sertraline HCl (Zoloft) 100 mg PO BID [facility] Last Admin: 12/08/17 09:27 Dose: 100 mg Tramadol HCl (Ultram) 50 mg PO Q6 PRN PRN Reason: Pain, Mild (1-3) Last Admin: 12/07/17 18:20 Dose: 50 mg Trazodone HCl (Desyrel) 150 mg PO HS [facility] Last Admin: 12/07/17 22:22 Dose: 150 mg - Labs Labs: 12/04/17 05:48 12/04/17 05:49 - Head Exam Head Exam: ATRAUMATIC, NORMOCEPHALIC - ENT Exam ENT Exam: Mucous Membranes Moist - Respiratory Exam Respiratory Exam: Rhonchi - Cardiovascular Exam Cardiovascular Exam: REGULAR RHYTHM - GI/Abdominal Exam GI & Abdominal Exam: Soft Assessment and Plan (1) Tracheobronchitis Assessment & Plan: On antibiotics Nebulizer treatment Stable from pulmonary standpoint Status: Acute (2) COPD (chronic obstructive pulmonary disease) Status: Acute (3) Tracheostomy dependence Status: Acute (4) Morbid obesity Status: Chronic
--- NOTE | 2017-12-08 20:10 | CP.PCM.PN ---
Subjective - Date & Time of Evaluation Date of Evaluation: 12/08/17 Time of Evaluation: 08:39 - Subjective Subjective: dictated Objective - Vital Signs/Intake and Output Vital Signs (last 24 hours): Temp Pulse Resp BP Pulse Ox 98.3 F 80 20 129/74 98 12/08/17 12:00 12/08/17 12:00 12/08/17 12:00 12/08/17 12:00 12/08/17 12:00 - Medications Medications: Current Medications Acetaminophen (Tylenol 325mg Tab) 650 mg PO Q6H PRN PRN Reason: Pain, Mild (1-3) Last Admin: 12/06/17 20:00 Dose: 650 mg Albuterol/Ipratropium (Duoneb 3 Mg/0.5 Mg (3 Ml) Ud) 3 ml INH RQ4 [facility] Last Admin: 12/08/17 15:50 Dose: 3 ml Dextrose (Dextrose 50% Inj) 0 ml IV STAT PRN; Protocol PRN Reason: Hypoglycemia Protocol Dextrose (Glutose 15) 0 gm PO ONCE PRN; Protocol PRN Reason: Hypoglycemia Protocol Gabapentin (Neurontin) 800 mg PO TID [facility] Last Admin: 12/08/17 17:25 Dose: 800 mg Glucagon (Glucagen Diagnostic Kit) 0 mg IM STAT PRN; Protocol PRN Reason: Hypoglycemia Protocol Guaifenesin (Robitussin) 200 mg PO Q4H [facility] Last Admin: 12/08/17 15:04 Dose: 200 mg Insulin Glargine (Lantus) 17 unit SC AC [facility] Last Admin: 12/08/17 15:57 Dose: 17 units Insulin Human Regular (Novolin R) 0 unit SC ACHS [facility]; Protocol Last Admin: 12/08/17 17:24 Dose: 4 units Lorazepam (Ativan) 0.5 mg PO BID PRN PRN Reason: Anxiety Last Admin: 12/08/17 16:07 Dose: 0.5 mg Montelukast Sodium (Singulair) 10 mg PO HS [facility] Last Admin: 12/07/17 22:16 Dose: 10 mg Pantoprazole Sodium (Protonix Ec Tab) 20 mg PO DAILY [facility] Last Admin: 12/08/17 09:27 Dose: 20 mg Prednisone (Prednisone Tab) 30 mg PO DAILY [facility] Last Admin: 12/08/17 11:45 Dose: 30 mg Quetiapine Fumarate (Seroquel Xr) 400 mg PO Q12 [facility] Last Admin: 12/08/17 09:27 Dose: 400 mg Sertraline HCl (Zoloft) 100 mg PO BID [facility] Last Admin: 12/08/17 17:25 Dose: 100 mg Tramadol HCl (Ultram) 50 mg PO Q6 PRN PRN Reason: Pain, Mild (1-3) Last Admin: 12/08/17 16:07 Dose: 50 mg Trazodone HCl (Desyrel) 150 mg PO [facility] Last Admin: 12/07/17 22:22 Dose: 150 mg - Labs Labs: 12/04/17 05:48 12/04/17 05:49
[2017-12-08 21:25] VITALS: BP 134/78; PULSE 84; RESP 22; TEMP 98.2
[2017-12-09 03:27] VITALS: O2SAT 100
--- NOTE | 2017-12-10 06:04 | OP ---
PROCEDURE DATE: 12/07/2017 PROCEDURE: Fiberoptic bronchoscopy with bronchoalveolar lavage. PREOPERATIVE DIAGNOSIS: Rule out granulation tissue. POSTOPERATIVE DIAGNOSIS: Rule out granulation tissue. INDICATION: Fiberoptic bronchoscopy procedure was done. DESCRIPTION OF PROCEDURE: After obtaining consent from family, explaining the risks and benefits, the procedure was done. After the patient was given 2 mg of Versed, the bronchoscope was passed through tracheostomy tube into the trachea. Copious amount of purulent secretions noted, which were suctioned out. No granulation tissue noted in the trachea. No granulation tissue seen on the tracheostomy tube. As mucosa of the trachea very edematous and hyperemic, bronchoalveolar lavage was done. The patient tolerated the procedure well. No complications. Rodo Rosado MD
--- NOTE | 2017-12-10 06:06 | PN ---
DATE: 12/08/2017 SUBJECTIVE: Carin Moser is for subacute rehab. She has been approved, and the patient will be discharged as soon as the patient is accepted into subacute rehab. PHYSICAL EXAMINATION: VITAL SIGNS: Blood pressure 129/74, pulse 80, respiratory rate 20, temperature 98.3. LUNGS: Bilateral scattered rhonchi and rales. CVS: S1 and S2 regular. ABDOMEN: Soft. ASSESSMENT: 1. Exacerbation of bronchial asthma. 2. Left lower lobe pneumonia. 3. Type 2 diabetes. 4. Hypertension. PLAN: Subacute rehab. Taper steroids. Monitor the patient. Status post bronchoscopy. Ad Khan MD
--- NOTE | 2017-12-10 06:06 | DS ---
ADMISSION DIAGNOSIS: Respiratory failure. DISCHARGE DIAGNOSES: 1. Acute respiratory failure. 2. Pneumonia. 3. Type 2 diabetes. 4. Hypertension. Ad Khan MD
--- NOTE | 2017-12-10 06:07 | PN ---
DATE: 12/07/2017 SUBJECTIVE: The patient underwent bronchoscopy with Dr. Rosado. On contrary to the CT findings, the patient was found to have no evidence of scar tissue so patient will not be transferred to [facility]. The patient is afebrile, less cough, less wheezing. No nausea, vomiting. PHYSICAL EXAMINATION: VITAL SIGNS: Blood pressure 138/89, pulse 75, respiratory rate 16, temperature 98. LUNGS: Positive rhonchi. Decreased air entry. CVS: S1, S2, regular. ABDOMEN: Soft, nontender. Bowel sounds are positive. ASSESSMENT: 1. Exacerbation of bronchial asthma. 2. Tracheal bronchitis. 3. Type 2 diabetes. 4. Hypertension. PLAN: Continue antibiotics. The patient is being tapered off steroids, and patient is fine. The patient has left lower lobe infiltrate. Ad Khan MD
== END 2017-12-08 19:00 | disposition home or self-care (01) | DRG 539 ==
LOC: SUPCPDRO 23:23 → C.ER 23:23 → C.9E 11-30 01:14 → C.9I 11-30 07:14
PROVIDERS: ADMIT Internal Medicine; ATTEND Internal Medicine
PROC: 0CJS8ZZ Inspection of Larynx, Via Natural or Artificial Opening Endoscopic (ICD-10-PCS; 2017-11-30)
PROC: 0B9H8ZX Drainage of Lung Lingula, Via Natural or Artificial Opening Endoscopic, Diagnostic (ICD-10-PCS; principal; 2017-12-07 13:00)
DX: J96.00 Acute respiratory failure, unspecified whether with hypoxia or hypercapnia (principal); J18.9 Pneumonia, unspecified organism; J95.00 Unspecified tracheostomy complication; I11.0 Hypertensive heart disease with heart failure; J44.0 Chronic obstructive pulmonary disease with (acute) lower respiratory infection; J45.901 Unspecified asthma with (acute) exacerbation; I50.9 Heart failure, unspecified; J44.1 Chronic obstructive pulmonary disease with (acute) exacerbation; T38.0X5S Adverse effect of glucocorticoids and synthetic analogues, sequela; E09.9 Drug or chemical induced diabetes mellitus without complications; J39.8 Other specified diseases of upper respiratory tract; G47.33 Obstructive sleep apnea (adult) (pediatric); R13.10 Dysphagia, unspecified; E78.5 Hyperlipidemia, unspecified; E66.01 Morbid (severe) obesity due to excess calories; F31.9 Bipolar disorder, unspecified; F41.9 Anxiety disorder, unspecified; Z87.01 Personal history of pneumonia (recurrent); Z90.49 Acquired absence of other specified parts of digestive tract; Z90.710 Acquired absence of both cervix and uterus; Z99.81 Dependence on supplemental oxygen

== ENCOUNTER 2017-12-28 16:18 | Inpatient (IN) | payer OTHER ==
[2017-12-28 16:18] VITALS: BMI 45.6
[2017-12-28] MEDS ORDERED: Moxifloxacin IV 400mg/250ml NS 400 MG/250 ML BAG IVPB ONE ×2 (17:07→17:51)
[2017-12-28] MEDS ORDERED: Albuterol-Ipratrop 3 mg / 0.5 (3 ml) UD INH STA ×2 (17:07→18:10)
--- NOTE | 2017-12-28 17:57 | RAD ---
Date of service: 12/28/2017 PROCEDURE: CHEST RADIOGRAPH, 1 VIEW HISTORY: SOB COMPARISON: Chest radiograph dated 12/03/2017. FINDINGS: LUNGS: Mid/lower lung opacity redemonstrated. PLEURA: No pneumothorax or pleural fluid seen. CARDIOVASCULAR: PICC atherosclerotic calcifications. Cardiomediastinal silhouette stably enlarged. OSSEOUS STRUCTURES: Unchanged. VISUALIZED UPPER ABDOMEN: Normal. OTHER FINDINGS: Tracheostomy, unchanged. IMPRESSION: No significant change in left mid/lower lung opacity.
[2017-12-28 18:00] LABS: PROTHROMBIN TIME 10.9 SECONDS (9.7-12.2)
[2017-12-28 18:02] LABS: BASO # 0.1 K/uL (0.0-0.2); BASO % 0.6 % (0.0-2.0); EOS # 0.1 K/uL (0.0-0.7); EOS % 1.4 % (0.0-4.0); HEMOGLOBIN 11.3 g/dL (11.0-16.0); LYMPH # 2.2 K/uL (1.0-4.3); LYMPH % 24.5 % (20.0-40.0); MEAN CELL VOLUME 77.4 fL (81.0-99.0); MEAN CORPUSCULAR HEMOGLOBIN 26.4 pg (27.0-31.0); MEAN CORPUSCULAR HGB CONC 34.1 g/dL (33.0-37.0); MEAN PLATELET VOLUME 8.7 fL (7.2-11.7); MONO # 0.7 K/uL (0.0-0.8); MONO % 7.7 % (0.0-10.0); NEUT # 5.9 K/uL (1.8-7.0); NEUT % 65.8 % (50.0-75.0); RBC 4.27 Mil/uL (3.80-5.20); WHITE BLOOD COUNT 8.9 K/uL (4.8-10.8)
--- NOTE | 2017-12-28 18:17 | C.PDOC ---
History Of Present Illness 62 y/o female,w/PMhx of diabetes, HTN, COPD, and seizures, [facility] for evaluation of fever. Patient has a tracheostomy tube, [facility] staff noticed that patient had thick brown secretions. Denies having cough, CP, SOB, nausea, vomiting, and abdominal pain. Time Seen by Provider: 12/28/17 16:56 Chief Complaint (Nursing): Fever History Per: Patient History/Exam Limitations: no limitations Onset/Duration Of Symptoms: Days Current Symptoms Are (Timing): Still Present Severity: Moderate Past Medical History Reviewed: Historical Data, Nursing Documentation, Vital Signs Vital Signs: Last Vital Signs Temp 100 F H 12/28/17 16: Pulse 100 H 12/28/17 16:26 Resp 18 12/28/17 16:26 BP 124/80 12/28/17 16: Pulse Ox 98 12/28/17 16:26 - Medical History PMH: Anxiety, Asthma, Bipolar Disorder, Bronchitis, CHF, COPD, Depression, Emphysema, Gall Bladder Disease, HTN, Pneumonia, Seizures, Sleep Apnea Denies: Arthritis, HIV, Hypercholesterolemia, Hypothyroidism, Chronic Kidney Disease, Rheumatoid Arthritis, Sexually Transmitted Disease Surgical History: Appendectomy, Cholecystectomy - [facility] Procedures ASSISTANCE WITH RESPIRATORY VENTILATION, <24 HRS, CPAP (03/14/16) CENTRAL VENOUS CATHETER PLACEMENT WITH GUIDANCE (10/24/14) CHANGE TRACHEOSTOMY DEVICE IN TRACHEA, EXTERNAL APPROACH (07/03/17) CONTINUOUS INVASIVE MECHANICAL VENTILATION <96 CONSEC HRS (03/07/14) DRAINAGE OF LUNG L[place]A, ENDO, DIAGN (11/30/17) ENTERAL INFUSION OF CONCENTRATED NUT. SUBSTANCES (09/17/12) INSERT ENDOTRACHEAL TUBE (09/17/12) INSERTION OF ENDOTRACHEAL AIRWAY INTO TRACHEA, VIA OPENING (06/12/17) INSERTION OF INFUSION DEV INTO SUP VENA CAVA, PERC APPROACH (11/13/17) INSERTION OF INFUSION DEVICE INTO UPPER VEIN, PERC APPROACH (10/04/17) INSPECTION OF LARYNX, ENDO (11/30/17) INTRODUCE OF OTH THERAP SUBST INTO RESP TRACT, VIA OPENING (05/03/15) INTRODUCTION OF NUTRITIONAL INTO UP [facility], VIA OPENING (06/12/17) NEBULIZER THERAPY (09/17/12) REMOVAL OF TRACHEOSTOMY DEVICE FROM TRACHEA, [facility] SALES APPROACH (06/12/17) RESPIRATORY VENTILATION, 24-96 CONSECUTIVE HOURS (11/13/17) RESPIRATORY VENTILATION, GREATER THAN 96 CONSECUTIVE HOURS (02/27/17) Family History: States: No Known Family Hx - Social History Hx Tobacco Use: No Hx Alcohol Use: No Hx Substance Use: No - Immunization History Hx Tetanus Toxoid Vaccination: No Hx Influenza Vaccination: No Hx Pneumococcal Vaccination: No Review Of Systems Except As Marked, All Systems Reviewed And Found Negative. Constitutional: Positive for: Fever. Negative for: Chills Cardiovascular: Negative for: Chest Pain Respiratory: Negative for: Shortness of Breath Gastrointestinal: Negative for: Nausea, Vomiting, Abdominal Pain Physical Exam - Physical Exam Appears: Non-toxic, No Acute Distress Skin: Normal Color, Warm, Dry Head: Atraumatic, Normacephalic Eye(s): bilateral: Normal Inspection Nose: Normal Oral Mucosa: Moist Neck: Supple Chest: Symmetrical Cardiovascular: Rhythm Regular Respiratory: Decreased Breath Sounds (coarse breath sounds bilaterally), No Rales, No Rhonchi, No Wheezing Gastrointestinal/Abdominal: Normal Exam, Soft, No Tenderness, No Guarding, No Rebound Neurological/Psych: Oriented x3, Normal Speech ED Course And Treatment - Laboratory Results Result Diagrams: 12/28/17 17:46 12/28/17 17:46 ECG: Interpreted By Me, Viewed By Me ECG Rhythm: Sinus Rhythm Interpretation Of ECG: NSR with normal intervals and normal axises Rate From EC O2 Sat by Pulse Oximetry: 98 (RA) Pulse Ox Interpretation: Normal Medical Decision Making Medical Decision Making: Assessment: Fever Plan: --Labs --CXR --UA --Albuterol --Solu-Medrol IV Updates: 18:30: Case discussed with . Patient admitted to Med Surg under the service of for COPD exacerbation. Disposition Discussed With : Ad Khan Doctor Will See Patient In The: Hospital Counseled Patient/Family Regarding: Studies Performed, Diagnosis - Disposition Disposition: HOSPITALIZED Disposition Time: 18:30 Condition: FAIR - Clinical Impression Clinical Impression: COPD exacerbation - Scribe Statement The provider has reviewed the documentation as recorded by the Tessibwilliams Lyon Provider Attestation: All medical record entries made by the Scribe were at my direction and personally dictated by me. I have reviewed the chart and agree that the record accurately reflects my personal performance of the history, physical exam, medical decision making, and the department course for this patient. I have also personally directed, reviewed, and agree with the discharge instructions and disposition.
[2017-12-28 18:19] LABS: ALB/GLOB RATIO 1.1 (1.0-2.1); ALBUMIN 3.7 g/dL (3.5-5.0); ALT/SGPT 15 U/L (9-52); AST/SGOT 19 U/L (14-36); BLOOD UREA NITROGEN 15 mg/dL (7-17); CALCIUM 8.8 mg/dl (8.6-10.4); GFR NON-AFRICAN AMERICAN 57
[2017-12-28 18:24] LABS: B-TYPE NATRIURETIC PEPTIDE 77.5 pg/mL (0-900)
--- NOTE | 2017-12-28 20:03 | CP.PCM.HP ---
Past Patient History - Infectious Disease Hx of Infectious Diseases: None - Tetanus Immunizations Tetanus Immunization: Unknown - Past Medical History & Family History Past Medical History?: Yes - Past Social History Smoking Status: Unknown If Ever Smoked - CARDIAC Hx Congestive Heart Failure: Yes Hx Hypercholesterolemia: No Hx Hypertension: Yes - PULMONARY Hx Asthma: Yes Hx Bronchitis: Yes Hx Chronic Obstructive Pulmonary Disease (COPD): Yes Hx Emphysema: Yes Hx Pneumonia: Yes Hx Sleep Apnea: Yes - NEUROLOGICAL Hx Seizures: Yes - HEENT Hx HEENT Problems: Yes Hx Cataracts: Yes - RENAL Hx Chronic Kidney Disease: No - ENDOCRINE/METABOLIC Hx Hypothyroidism: No - HEMATOLOGICAL/ONCOLOGICAL Hx Human Immunodeficiency Virus (HIV): No - INTEGUMENTARY Hx Dermatological Problems: No - MUSCULOSKELETAL/RHEUMATOLOGICAL Hx Arthritis: No Hx Rheumatoid Arthritis: No - GASTROINTESTINAL Hx Gall Bladder Disease: Yes - GENITOURINARY/GYNECOLOGICAL Hx Sexually Transmitted Disorders: No - PSYCHIATRIC Hx Anxiety: Yes Hx Bipolar Disorder: Yes Hx Depression: Yes Hx Substance Use: No - SURGICAL HISTORY Hx Appendectomy: Yes Hx Cholecystectomy: Yes - ANESTHESIA Hx Anesthesia: Yes Hx Anesthesia Reactions: No Hx Malignant Hyperthermia: No Meds Allergies/Adverse Reactions: Allergies Allergy/AdvReac Type Severity Reaction Status Date / Time aspirin Allergy ANAPHYLAXIS Verified 11/29/17 23:33 ceftriaxone sodium Allergy ANAPHYLAXIS Verified 11/29/17 23:33 [From Rocephin] ibuprofen [From Motrin] Allergy ANAPHYLAXIS Verified 11/29/17 23:33 iodine Allergy ANAPHYLAXIS Verified 11/29/17 23:33 raspberry Allergy ANAPHYLAXIS Verified 11/29/17 23:33 Results - Vital Signs Recent Vital Signs: Last Vital Signs Temp 98 F 12/28/17 19:21 Pulse 78 12/28/17 19:21 Resp 18 12/28/17 19:21 BP 136/79 12/28/17 19:21 Pulse Ox 98 12/28/17 19:22 - Labs Result Diagrams: 12/28/17 17:46 12/28/17 17:46 Labs: Laboratory Results - last 24 hr 12/28/17 12/28/17 12/28/17 17:46 17:46 17:46 WBC 8.9 RBC 4.27 Hgb 11.3 Hct 33.1 L MCV 77.4 L MCH 26.4 L MCHC 34.1 RDW 18.0 H Plt Count 117 L D MPV 8.7 Neut % (Auto) 65.8 Lymph % (Auto) 24.5 [place] % (Auto) 7.7 Eos % (Auto) 1.4 Baso % (Auto) 0.6 Neut # (Auto) 5.9 Lymph # (Auto) 2.2 [place] # (Auto) 0.7 Eos # (Auto) 0.1 Baso # (Auto) 0.1 Differential Comment PT 10.9 INR 1.0 APTT 36 H Sodium 138 Potassium 4.3 Chloride 102 Carbon Dioxide 28 Anion Gap 12 BUN 15 Creatinine 1.0 Est GFR ( Amer) > 60 Est GFR (Non-Af Amer) 57 Random Glucose 185 H Calcium 8.8 Magnesium 1.8 Total Bilirubin 0.5 AST 19 ALT 15 Alkaline Phosphatase 197 H D Troponin I < 0.0120 NT-Pro-B Natriuret Pep 77.5 Total Protein 7.1 Albumin 3.7 Globulin 3.4 Albumin/Globulin Ratio 1.1
[2017-12-29] MEDS: Oxycodone/Acetaminophen 5/325 mg Tab PO PRN ×3 (00:51→17:23)
--- NOTE | 2017-12-29 07:40 | HP ---
CHIEF COMPLAINT: Fever. HISTORY OF PRESENT ILLNESS: This is a 62-year-old female well known to me who has got major depression, anxiety, insomnia, type 2 diabetes, hypertension, hyperlipidemia, osteoarthritis; and she has chronic tracheostomy. She is compliant with her diet, medication, and followup. Currently, she is in subacute rehab in [place]. The patient asked for discharge, but for the last four days, she has been having increased secretion which are thick, more and more yellow, and since yesterday, she is having fever. She is unable to bring up phlegm. She feels weak, dizzy, tired fatigued. She has nausea, no vomiting. She has generalized weakness. She denies any polyuria, polydipsia, or polyphagia. She denies any hematuria, polyuria. She denies any sneezing. She has nasal congestion, rhinorrhea, body ache, chest pain, chest congestion. She denies any history of trauma, fall, or loss of consciousness. No history of seizure like activities. CURRENT MEDICATIONS: Trazodone, TobraDex, Percocet, Tessalon, Zoloft, Seroquel XR, Protonix, Tylenol, Robitussin, Ativan, Singulair, Novolin R, Lantus, DuoNeb, Guaifenesin, Bactrim which was started two days ago and gabapentin. SOCIAL HISTORY: She is a non-smoker, non-ETOH user. PAST MEDICAL HISTORY: Tracheostomy, type 2 diabetes, hypertension, hyperlipidemia, depression. PHYSICAL EXAMINATION: GENERAL: An elderly female in distress with cough, congestion. VITAL SIGNS: Blood pressure 136/79, pulse 78, respiratory rate 18, and temperature 98. SKIN: No rashes. No bruits. No purpura. No petechiae. No ecchymosis. HEENT: Atraumatic and normocephalic. Negative pallor. Negative jaundice. Extraocular movements are intact. NECK: Supple. Negative JVD. Negative lymph node. Negative thyromegaly. No carotid bruits. Positive tracheostomy with secretion. LUNGS: Bilateral crackles with breath sounds. Bilateral rales and rhonchi. Decreased air entry. CVS: S1 and S2 regular. ABDOMEN: Soft and nontender. Bowel sounds are positive. RECTAL: No masses. No bleeding. EXTREMITIES: +2 nonpitting edema. [employer] WORKER: Awake, alert, and oriented x3. ASSESSMENT: 1. Tracheobronchitis, less likely to be pneumonia. 2. Exacerbation of bronchial asthma. 3. Type 2 diabetes. 4. Anxiety and depression. 5. Hypertension. PLAN: Admit. Sputum culture. Monitor the patient. Ad Khan MD
[2017-12-29] MEDS: (Novolog) Insulin Aspart, Recombinant 100 u/ml 10 ml vial SC SCH ×4 (08:58→22:04)
[2017-12-29] MEDS: Albuterol-Ipratrop 3 mg / 0.5 (3 ml) UD INH SCH ×4 (08:59→20:18)
[2017-12-29] MEDS ORDERED: Albuterol-Ipratrop 3 mg / 0.5 (3 ml) UD INH SCH (09:00)
[2017-12-29] MEDS: (Lantus) Insulin Glargine, Recombinant SC SCH ×3 (09:03→17:22)
[2017-12-29] MEDS: Enoxaparin 40 mg Syringe SC SCH (10:51)
[2017-12-29] MEDS: Pantoprazole 20 mg EC Tab PO SCH (10:51)
[2017-12-29] MEDS: Piperacillin/Tazobact 3.375 GM in Sodium Chloride 100 ML IVPB SCH ×3 (10:51→21:58)
[2017-12-29] MEDS: QUEtiapine 200 mg XR Tab PO SCH ×2 (10:52→22:00)
--- NOTE | 2017-12-29 14:55 | CP.PCM.CON ---
History of Present Illness - History of Present Illness History of Present Illness: reason for consultation: cough and shortness of breath Patient is a 62 year old female with history of COPD, HTN, CHF, sp tracheostomy who [facility] associated with fever. Patient is trached and is on 3L of supplemental O2. Tracheostomy tube was suctioned multiple times with some secretions. status post bronchoscopy recently with copious secretions PMH: COPD, HTN, CHF, sp tracheostomy, anxiety, depression, seizures PSH: appendectomy, cholecystectomy, tracheostomy Social hx: no tobacco, alcohol or drug use. Allergies: ASA, Rocephn, Ibuprofen, Iodine, raspberry Review of Systems - Review of Systems All systems: reviewed and no additional remarkable complaints except (cough and shortness of breath) Past Patient History - Infectious Disease Hx of Infectious Diseases: None - Tetanus Immunizations Tetanus Immunization: Unknown - Past Medical History & Family History Past Medical History?: Yes - Past Social History Smoking Status: Unknown If Ever Smoked - CARDIAC Hx Congestive Heart Failure: Yes Hx Hypercholesterolemia: No Hx Hypertension: Yes - PULMONARY Hx Asthma: Yes Hx Bronchitis: Yes Hx Chronic Obstructive Pulmonary Disease (COPD): Yes Hx Emphysema: Yes Hx Pneumonia: Yes Hx Sleep Apnea: Yes - NEUROLOGICAL Hx Seizures: Yes - HEENT Hx HEENT Problems: Yes Hx Cataracts: Yes - RENAL Hx Chronic Kidney Disease: No - ENDOCRINE/METABOLIC Hx Hypothyroidism: No - HEMATOLOGICAL/ONCOLOGICAL Hx Human Immunodeficiency Virus (HIV): No - INTEGUMENTARY Hx Dermatological Problems: No - MUSCULOSKELETAL/RHEUMATOLOGICAL Hx Arthritis: No Hx Rheumatoid Arthritis: No - GASTROINTESTINAL Hx Gall Bladder Disease: Yes - GENITOURINARY/GYNECOLOGICAL Hx Sexually Transmitted Disorders: No - PSYCHIATRIC Hx Anxiety: Yes Hx Bipolar Disorder: Yes Hx Depression: Yes Hx Substance Use: No - SURGICAL HISTORY Hx Appendectomy: Yes Hx Cholecystectomy: Yes - ANESTHESIA Hx Anesthesia: Yes Hx Anesthesia Reactions: No Hx Malignant Hyperthermia: No Meds Allergies/Adverse Reactions: Allergies Allergy/AdvReac Type Severity Reaction Status Date / Time aspirin Allergy ANAPHYLAXIS Verified 11/29/17 23:33 ceftriaxone sodium Allergy ANAPHYLAXIS Verified 11/29/17 23:33 [From Rocephin] ibuprofen [From Motrin] Allergy ANAPHYLAXIS Verified 11/29/17 23:33 iodine Allergy ANAPHYLAXIS Verified 11/29/17 23:33 raspberry Allergy ANAPHYLAXIS Verified 11/29/17 23:33 - Medications Medications: Current Medications Acetaminophen (Tylenol 325mg Tab) 650 mg PO Q6 PRN PRN Reason: fever Albuterol/Ipratropium (Duoneb 3 Mg/0.5 Mg (3 Ml) Ud) 3 ml INH RQ4 [facility] Last Admin: 12/29/17 12:54 Dose: 3 ml Enoxaparin Sodium (Lovenox) 40 mg SC DAILY [facility] Last Admin: 12/29/17 10:51 Dose: 40 mg Gabapentin (Neurontin) 800 mg PO TID [facility] Last Admin: 12/29/17 13:30 Dose: 800 mg Piperacillin Sod/Tazobactam (Sod 3.375 gm/ Sodium Chloride) 100 mls @ 200 mls/hr IVPB Q6H [facility]; Protocol Last Admin: 12/29/17 10:51 Dose: 200 mls/hr Insulin Aspart (Novolog) 0 unit SC ACHS [facility]; Protocol Last Admin: 12/29/17 12:26 Dose: 4 units Insulin Glargine (Lantus) 17 unit SC AC [facility] Last Admin: 12/29/17 12:26 Dose: 17 units Lorazepam (Ativan) 2 mg PO Q12 PRN PRN Reason: Anxiety Last Admin: 12/29/17 12:27 Dose: 2 mg Montelukast Sodium (Singulair) 10 mg PO HS [facility] Oxycodone/Acetaminophen (Percocet 5/325 Mg Tab) 1 tab PO Q4H PRN PRN Reason: Pain, moderate (4-7) Stop: 12/31/17 22:07 Last Admin: 12/29/17 10:56 Dose: 1 tab Pantoprazole Sodium (Protonix Ec Tab) 20 mg PO DAILY [facility] Last Admin: 12/29/17 10:51 Dose: 20 mg Quetiapine Fumarate (Seroquel Xr) 400 mg PO Q12 [facility] Last Admin: 12/29/17 10:52 Dose: 400 mg Sertraline HCl (Zoloft) 100 mg PO BID [facility] Last Admin: 12/29/17 10:52 Dose: 100 mg Physical Exam - Head Exam Head Exam: ATRAUMATIC, NORMOCEPHALIC - ENT Exam ENT Exam: Mucous Membranes Moist - Neck Exam Neck exam: Positive for: Normal Inspection - Respiratory Exam Respiratory Exam: Rales, Rhonchi, Wheezes - Cardiovascular Exam Cardiovascular Exam: REGULAR RHYTHM - GI/Abdominal Exam GI & Abdominal Exam: Normal Bowel Sounds, Soft - Extremities Exam Extremities exam: Positive for: normal inspection - Neurological Exam Neurological exam: Alert, Oriented x3 Results - Vital Signs Recent Vital Signs: Last Vital Signs Temp 99.8 F H 12/29/17 08:00 Pulse 87 12/29/17 08:00 Resp 20 12/29/17 08:00 BP 149/81 12/29/17 08:00 Pulse Ox 96 12/29/17 08:00 - Labs Result Diagrams: 12/28/17 17:46 12/28/17 17:46 Labs: Laboratory Results - last 24 hr 12/28/17 12/28/17 12/28/17 17:46 17:46 17:46 WBC 8.9 RBC 4.27 Hgb 11.3 Hct 33.1 L MCV 77.4 L MCH 26.4 L MCHC 34.1 RDW 18.0 H Plt Count 117 L D MPV 8.7 Neut % (Auto) 65.8 Lymph % (Auto) 24.5 [place] % (Auto) 7.7 Eos % (Auto) 1.4 Baso % (Auto) 0.6 Neut # (Auto) 5.9 Lymph # (Auto) 2.2 [place] # (Auto) 0.7 Eos # (Auto) 0.1 Baso # (Auto) 0.1 Differential Comment PT 10.9 INR 1.0 APTT 36 H Sodium 138 Potassium 4.3 Chloride 102 Carbon Dioxide 28 Anion Gap 12 BUN 15 Creatinine 1.0 Est GFR ( Amer) > 60 Est GFR (Non-Af Amer) 57 POC Glucose (mg/dL) Random Glucose 185 H Calcium 8.8 Magnesium 1.8 Total Bilirubin 0.5 AST 19 ALT 15 Alkaline Phosphatase 197 H D Troponin I < 0.0120 NT-Pro-B Natriuret Pep 77.5 Total Protein 7.1 Albumin 3.7 Globulin 3.4 Albumin/Globulin Ratio 1.1 12/28/17 12/29/17 12/29/17 21:15 07:31 11:04 WBC RBC Hgb Hct MCV MCH MCHC RDW Plt Count MPV Neut % (Auto) Lymph % (Auto) [place] % (Auto) Eos % (Auto) Baso % (Auto) Neut # (Auto) Lymph # (Auto) [place] # (Auto) Eos # (Auto) Baso # (Auto) Differential Comment PT INR APTT Sodium Potassium Chloride Carbon Dioxide Anion Gap BUN Creatinine Est GFR ( Amer) Est GFR (Non-Af Amer) POC Glucose (mg/dL) 259 H 280 H 252 H Random Glucose Calcium Magnesium Total Bilirubin AST ALT Alkaline Phosphatase Troponin I NT-Pro-B Natriuret Pep Total Protein Albumin Globulin Albumin/Globulin Ratio Assessment & Plan (1) Tracheobronchitis Status: Acute Comment: followup culture and sensitivity. Continue antibiotics. Bronchodilators. Antitussive (2) COPD exacerbation Status: Acute (3) Tracheostomy dependence Status: Acute
[2017-12-29 15:21] LABS: SQUAMOUS EPITHIAL 1 /hpf (0-5); URINE BACTERIA RARE (<OCC); URINE BILIRUBIN NEGATIVE (NEGATIVE); URINE BLOOD NEGATIVE (NEGATIVE); URINE CLARITY Clear (Clear); URINE COLOR Yellow (YELLOW); URINE GLUCOSE (UA) 3+ mg/dL (Normal); URINE LEUKOCYTE ESTERASE NEG Leu/uL (Negative); URINE PROTEIN NEGATIVE (NEGATIVE); URINE UROBILINOGEN NORMAL mg/dL (0.2-1.0)
[2017-12-29] MEDS: Promethazine/Cod 6.25mg-10mg/5ml Syr UD PO PRN (17:22)
[2017-12-30] MEDS: Albuterol-Ipratrop 3 mg / 0.5 (3 ml) UD INH SCH ×6 (00:05→19:38)
[2017-12-30] MEDS: Oxycodone/Acetaminophen 5/325 mg Tab PO PRN ×4 (00:27→17:44)
[2017-12-30] MEDS: Piperacillin/Tazobact 3.375 GM in Sodium Chloride 100 ML IVPB SCH ×3 (05:03→18:47)
[2017-12-30] MEDS: (Novolog) Insulin Aspart, Recombinant 100 u/ml 10 ml vial SC SCH ×4 (08:25→21:38)
[2017-12-30] MEDS: (Lantus) Insulin Glargine, Recombinant SC SCH ×3 (08:34→17:48)
[2017-12-30] MEDS: QUEtiapine 200 mg XR Tab PO SCH ×2 (11:09→21:37)
[2017-12-30] MEDS: Enoxaparin 40 mg Syringe SC SCH (11:09)
[2017-12-30] MEDS: Pantoprazole 20 mg EC Tab PO SCH (11:09)
--- NOTE | 2017-12-30 11:23 | CP.PCM.PN ---
Subjective - Date & Time of Evaluation Date of Evaluation: 12/30/17 Time of Evaluation: 11:21 - Subjective Subjective: Pulmonary Follow up, Covering Dr Rosado The patient was Seen/interviewed and examined by me at the bedside, Medical records reviewed and Management issues were discussed and formulated with the house staff. Events reviewed Mrs Moser is a 62 year old female with PMHx of COPD, HTN, CHF, chronic respiratory failure s/p tracheostomy who [facility] shortness of breath associated with fever. Patient is trached and is on 3L of supplemental O2. Tracheostomy tube was suctioned multiple times with some secretions. PMH: COPD, HTN, CHF, sp tracheostomy, anxiety, depression, seizures PSH: appendectomy, cholecystectomy, tracheostomy Social hx: no tobacco, alcohol or drug use. Allergies: ASA, Rocephn, Ibuprofen, Iodine, raspberry status post bronchoscopy recently with copious secretions Awake, oriented Comfortable, in no acute distress Denies shortness of breath or cough No chest pain Afebrile, Tmx 99.8 Objective - Vital Signs/Intake and Output Vital Signs (last 24 hours): Temp Pulse Resp BP Pulse Ox 98 F 89 20 120/78 96 12/30/17 08:10 12/30/17 08:10 12/30/17 08:10 12/30/17 08:10 12/30/17 08:10 Intake and Output: 12/30/17 12/30/17 06:59 18:59 Intake Total 380 Balance 380 - Medications Medications: Current Medications Acetaminophen (Tylenol 325mg Tab) 650 mg PO Q6 PRN PRN Reason: fever Albuterol/Ipratropium (Duoneb 3 Mg/0.5 Mg (3 Ml) Ud) 3 ml INH RQ4 [facility] Last Admin: 12/30/17 07:59 Dose: 3 ml Enoxaparin Sodium (Lovenox) 40 mg SC DAILY [facility] Last Admin: 12/30/17 11:09 Dose: 40 mg Gabapentin (Neurontin) 800 mg PO TID [facility] Last Admin: 12/30/17 11:09 Dose: 800 mg Insulin Aspart (Novolog) 0 unit SC ACHS [facility]; Protocol Last Admin: 12/30/17 08:25 Dose: Not Given Insulin Glargine (Lantus) 17 unit SC AC [facility] Last Admin: 12/30/17 08:34 Dose: 17 units Lorazepam (Ativan) 2 mg PO Q12 PRN PRN Reason: Anxiety Last Admin: 12/29/17 22:20 Dose: 2 mg Montelukast Sodium (Singulair) 10 mg PO HS [facility] Last Admin: 12/29/17 22:01 Dose: 10 mg Oxycodone/Acetaminophen (Percocet 5/325 Mg Tab) 1 tab PO Q4H PRN PRN Reason: Pain, moderate (4-7) Stop: 12/31/17 22:07 Last Admin: 12/30/17 11:10 Dose: 1 tab Pantoprazole Sodium (Protonix Ec Tab) 20 mg PO DAILY [facility] Last Admin: 12/30/17 11:09 Dose: 20 mg Promethazine HCl/Codeine (Phenergan/Codeine Oral Syrup) 5 ml PO Q4 PRN PRN Reason: Cough and congestion Last Admin: 12/29/17 17:22 Dose: 5 ml Quetiapine Fumarate (Seroquel Xr) 400 mg PO Q12 [facility] Last Admin: 12/30/17 11:09 Dose: 400 mg Sertraline HCl (Zoloft) 100 mg PO BID [facility] Last Admin: 12/30/17 11:08 Dose: 100 mg - Labs Labs: 12/28/17 17:46 12/28/17 17:46 PT 10.9 SECONDS (9.7-12.2) 12/28/17 17:46 INR 1.0 12/28/17 17:46 APTT 36 SECONDS (21-34) H 12/28/17 17:46 - Constitutional Appears: Well - Head Exam Head Exam: ATRAUMATIC, NORMAL INSPECTION, NORMOCEPHALIC - Eye Exam Eye Exam: EOMI, Normal appearance, PERRL - ENT Exam ENT Exam: Mucous Membranes Moist, Normal Exam - Neck Exam Additional comments: Trach site clean, intact, No Stridor - Respiratory Exam Respiratory Exam: Clear to Ausculation Bilateral, NORMAL BREATHING PATTERN - Cardiovascular Exam Cardiovascular Exam: REGULAR RHYTHM, +S1, +S2. absent: Murmur - GI/Abdominal Exam GI & Abdominal Exam: Soft, Normal Bowel Sounds. absent: Tenderness Assessment and Plan (1) Tracheobronchitis Status: Acute (2) COPD exacerbation Status: Acute (3) Tracheostomy dependence Status: Acute (4) Healthcare-associated pneumonia Status: Acute - Assessment and Plan (Free Text) Assessment: - Continue Duoneb - Continue Prednisone 20 mg PO DAILY - Continue Singulair - Continue Zosyn - Continue suctioning tracheostomy - DVR PPX with Lovenox 40 mg SC DAILY
--- NOTE | 2017-12-30 21:28 | CP.PCM.PN ---
Subjective - Date & Time of Evaluation Date of Evaluation: 12/29/17 - Subjective Subjective: weak, cough, congested, sob, no nausea, she has chest congestion thick trache secretions Objective - Vital Signs/Intake and Output Vital Signs (last 24 hours): Temp Pulse Resp BP Pulse Ox 99.7 F H 101 H 20 124/77 96 12/30/17 15:00 12/30/17 15:00 12/30/17 15:00 12/30/17 15:00 12/30/17 15:00 Intake and Output: 12/30/17 12/31/17 18:59 06:59 Intake Total 960 Balance 960 - Medications Medications: Current Medications Acetaminophen (Tylenol 325mg Tab) 650 mg PO Q6 PRN PRN Reason: fever Albuterol/Ipratropium (Duoneb 3 Mg/0.5 Mg (3 Ml) Ud) 3 ml INH RQ4 [facility] Last Admin: 12/30/17 19:38 Dose: 3 ml Enoxaparin Sodium (Lovenox) 40 mg SC DAILY [facility] Last Admin: 12/30/17 11:09 Dose: 40 mg Gabapentin (Neurontin) 800 mg PO TID [facility] Last Admin: 12/30/17 17:46 Dose: 800 mg Piperacillin Sod/Tazobactam (Sod 3.375 gm/ Sodium Chloride) 100 mls @ 200 mls/hr IVPB Q6H [facility]; Protocol Last Admin: 12/30/17 18:47 Dose: 200 mls/hr Insulin Aspart (Novolog) 0 unit SC ACHS [facility]; Protocol Last Admin: 12/30/17 17:47 Dose: 2 units Insulin Glargine (Lantus) 17 unit SC AC [facility] Last Admin: 12/30/17 17:48 Dose: 17 units Lorazepam (Ativan) 2 mg PO Q12 PRN PRN Reason: Anxiety Last Admin: 12/30/17 17:47 Dose: 2 mg Montelukast Sodium (Singulair) 10 mg PO HS [facility] Last Admin: 12/29/17 22:01 Dose: 10 mg Oxycodone/Acetaminophen (Percocet 5/325 Mg Tab) 1 tab PO Q4H PRN PRN Reason: Pain, moderate (4-7) Stop: 12/31/17 22:07 Last Admin: 12/30/17 17:44 Dose: 1 tab Pantoprazole Sodium (Protonix Ec Tab) 20 mg PO DAILY [facility] Last Admin: 12/30/17 11:09 Dose: 20 mg Prednisone (Prednisone Tab) 20 mg PO DAILY [facility] Last Admin: 12/30/17 17:44 Dose: 20 mg Promethazine HCl/Codeine (Phenergan/Codeine Oral Syrup) 5 ml PO Q4 PRN PRN Reason: Cough and congestion Last Admin: 12/29/17 17:22 Dose: 5 ml Quetiapine Fumarate (Seroquel Xr) 400 mg PO Q12 [facility] Last Admin: 12/30/17 11:09 Dose: 400 mg Sertraline HCl (Zoloft) 100 mg PO BID [facility] Last Admin: 12/30/17 17:46 Dose: 100 mg - Labs Labs: 12/28/17 17:46 12/28/17 17:46 PT 10.9 SECONDS (9.7-12.2) 12/28/17 17:46 INR 1.0 12/28/17 17:46 APTT 36 SECONDS (21-34) H 12/28/17 17:46 - Constitutional Appears: In Acute Distress, Chronically Ill - Head Exam Head Exam: ATRAUMATIC, NORMAL INSPECTION, NORMOCEPHALIC - Eye Exam Eye Exam: EOMI, Normal appearance, PERRL Pupil Exam: NORMAL ACCOMODATION - ENT Exam ENT Exam: Mucous Membranes Moist, Normal Exam, Normal Oropharynx, TM's Normal Bilaterally - Neck Exam Neck Exam: Normal Inspection - Respiratory Exam Respiratory Exam: Decreased Breath Sounds, Rhonchi, Wheezes, Respiratory Distress - Cardiovascular Exam Cardiovascular Exam: REGULAR RHYTHM, +S1, +S2 - GI/Abdominal Exam GI & Abdominal Exam: Soft, Normal Bowel Sounds - Rectal Exam Rectal Exam: NORMAL INSPECTION - Extremities Exam Extremities Exam: Full ROM, Normal Capillary Refill, Normal Inspection - Back Exam Back Exam: NORMAL INSPECTION - Neurological Exam Neurological Exam: Alert, Awake, CN II-XII Intact, Normal Gait, Oriented x3 Neuro motor strength exam: Left Upper Extremity: 5, Right Upper Extremity: 5, Left Lower Extremity: 5, Right Lower Extremity: 5 - Psychiatric Exam Psychiatric exam: Anxious, Depressed, Flat Affect - Skin Skin Exam: Dry Assessment and Plan (1) Asthma exacerbation Status: Acute (2) Tracheostomy complication Status: Chronic (3) Bipolar disorder Status: Chronic (4) Diabetes mellitus Status: Chronic
--- NOTE | 2017-12-30 21:29 | CP.PCM.PN ---
Subjective - Subjective Subjective: dictated Objective - Vital Signs/Intake and Output Vital Signs (last 24 hours): Temp Pulse Resp BP Pulse Ox 99.7 F H 101 H 20 124/77 96 12/30/17 15:00 12/30/17 15:00 12/30/17 15:00 12/30/17 15:00 12/30/17 15:00 Intake and Output: 12/30/17 12/31/17 18:59 06:59 Intake Total 960 Balance 960 - Medications Medications: Current Medications Acetaminophen (Tylenol 325mg Tab) 650 mg PO Q6 PRN PRN Reason: fever Albuterol/Ipratropium (Duoneb 3 Mg/0.5 Mg (3 Ml) Ud) 3 ml INH RQ4 [facility] Last Admin: 12/30/17 19:38 Dose: 3 ml Enoxaparin Sodium (Lovenox) 40 mg SC DAILY [facility] Last Admin: 12/30/17 11:09 Dose: 40 mg Gabapentin (Neurontin) 800 mg PO TID [facility] Last Admin: 12/30/17 17:46 Dose: 800 mg Piperacillin Sod/Tazobactam (Sod 3.375 gm/ Sodium Chloride) 100 mls @ 200 mls/hr IVPB Q6H [facility]; Protocol Last Admin: 12/30/17 18:47 Dose: 200 mls/hr Insulin Aspart (Novolog) 0 unit SC ACHS [facility]; Protocol Last Admin: 12/30/17 17:47 Dose: 2 units Insulin Glargine (Lantus) 17 unit SC AC [facility] Last Admin: 12/30/17 17:48 Dose: 17 units Lorazepam (Ativan) 2 mg PO Q12 PRN PRN Reason: Anxiety Last Admin: 12/30/17 17:47 Dose: 2 mg Montelukast Sodium (Singulair) 10 mg PO HS [facility] Last Admin: 12/29/17 22:01 Dose: 10 mg Oxycodone/Acetaminophen (Percocet 5/325 Mg Tab) 1 tab PO Q4H PRN PRN Reason: Pain, moderate (4-7) Stop: 12/31/17 22:07 Last Admin: 12/30/17 17:44 Dose: 1 tab Pantoprazole Sodium (Protonix Ec Tab) 20 mg PO DAILY [facility] Last Admin: 12/30/17 11:09 Dose: 20 mg Prednisone (Prednisone Tab) 20 mg PO DAILY [facility] Last Admin: 12/30/17 17:44 Dose: 20 mg Promethazine HCl/Codeine (Phenergan/Codeine Oral Syrup) 5 ml PO Q4 PRN PRN Reason: Cough and congestion Last Admin: 12/29/17 17:22 Dose: 5 ml Quetiapine Fumarate (Seroquel Xr) 400 mg PO Q12 [facility] Last Admin: 12/30/17 11:09 Dose: 400 mg Sertraline HCl (Zoloft) 100 mg PO BID [facility] Last Admin: 12/30/17 17:46 Dose: 100 mg - Labs Labs: 12/28/17 17:46 12/28/17 17:46 PT 10.9 SECONDS (9.7-12.2) 12/28/17 17:46 INR 1.0 12/28/17 17:46 APTT 36 SECONDS (21-34) H 12/28/17 17:46 Assessment and Plan (1) Asthma exacerbation Status: Acute (2) Tracheostomy complication Status: Chronic (3) Bipolar disorder Status: Chronic (4) Diabetes mellitus Status: Chronic
[2017-12-31] MEDS: Albuterol-Ipratrop 3 mg / 0.5 (3 ml) UD INH SCH ×6 (00:18→20:53)
[2017-12-31] MEDS: Piperacillin/Tazobact 3.375 GM in Sodium Chloride 100 ML IVPB SCH ×2 (01:03→06:03)
--- NOTE | 2017-12-31 02:54 | PN ---
DATE: 12/30/2017 SUBJECTIVE: The patient was admitted with cough, congestion, and shortness of breath. Her sputum culture resulted back. The patient's antibiotics need to be adjusted. The patient in the meantime has thick yellow secretion. PHYSICAL EXAMINATION: VITAL SIGNS: Blood pressure 124/77, pulse 101, respiratory rate 20, and temperature 99.7. LUNGS: Bilateral expiratory and inspiratory rhonchi. CARDIOVASCULAR SYSTEM: S1 and S2 are regular. ABDOMEN: Soft. ASSESSMENT: 1. Tracheobronchitis and gram-negative speedy. 2. Bronchial asthma. 3. Type 2 diabetes. 4. Depression. 5. Hypertension. PLAN: Monitor the patient. Antibiotics. ID followup. Ad Khan MD
[2017-12-31] MEDS: Oxycodone/Acetaminophen 5/325 mg Tab PO PRN ×3 (06:03→16:01)
[2017-12-31] MEDS: (Novolog) Insulin Aspart, Recombinant 100 u/ml 10 ml vial SC SCH ×4 (07:58→21:49)
[2017-12-31] MEDS: (Lantus) Insulin Glargine, Recombinant SC SCH ×3 (08:50→17:36)
[2017-12-31] MEDS: QUEtiapine 200 mg XR Tab PO SCH ×2 (10:28→21:31)
[2017-12-31] MEDS: Pantoprazole 20 mg EC Tab PO SCH (10:33)
[2017-12-31] MEDS: Enoxaparin 40 mg Syringe SC SCH (10:35)
--- NOTE | 2017-12-31 11:55 | CP.PCM.CON ---
History of Present Illness - History of Present Illness History of Present Illness: 62 y/o female with PMHx of COPD, CHF, HTN and s/p tracheostomy presents to the ED complaining of shortness of breath [facility] associated with fever. Patient is trached and is on 3L of supplemental O2. Tracheostomy tube was suctioned multiple times with some secretions. status post bronchoscopy recently with copious secretions - Medical History PMH: Anxiety, Asthma, Bipolar Disorder, Bronchitis, CHF, COPD (Emphysema,), Depression, Emphysema, Gall Bladder Disease, HTN, Pneumonia, Seizures, Sleep Apnea Denies: Arthritis, HIV, Hypercholesterolemia, Hypothyroidism, Chronic Kidney Disease, Rheumatoid Arthritis, Sexually Transmitted Disease Surgical History: Appendectomy, Cholecystectomy - [facility] Procedures ASSISTANCE WITH RESPIRATORY VENTILATION, <24 HRS, CPAP (03/14/16) CENTRAL VENOUS CATHETER PLACEMENT WITH GUIDANCE (10/24/14) CHANGE TRACHEOSTOMY DEVICE IN TRACHEA, EXTERNAL APPROACH (07/03/17) CONTINUOUS INVASIVE MECHANICAL VENTILATION <96 CONSEC HRS (03/07/14) ENTERAL INFUSION OF CONCENTRATED NUT. SUBSTANCES (09/17/12) INSERT ENDOTRACHEAL TUBE (09/17/12) INSERTION OF ENDOTRACHEAL AIRWAY INTO TRACHEA, VIA OPENING (06/12/17) INSERTION OF INFUSION DEV INTO SUP VENA CAVA, PERC APPROACH (04/27/17) INSERTION OF INFUSION DEVICE INTO UPPER VEIN, PERC APPROACH (10/04/17) INTRODUCE OF OTH THERAP SUBST INTO RESP TRACT, VIA OPENING (05/03/15) INTRODUCTION OF NUTRITIONAL INTO UP GI, VIA OPENING (06/12/17) NEBULIZER THERAPY (09/17/12) REMOVAL OF TRACHEOSTOMY DEVICE FROM TRACHEA, SUPERVISOR [employer] REPAIR APPROACH (06/12/17) RESPIRATORY VENTILATION, 24-96 CONSECUTIVE HOURS (06/12/17) RESPIRATORY VENTILATION, GREATER THAN 96 CONSECUTIVE HOURS (02/27/17) Family History: States: Unknown Family Hx Review of Systems - Review of Systems All systems: reviewed and no additional remarkable complaints except - Constitutional Constitutional: As Per HPI - EENT Eyes: absent: As Per HPI, Blind Spots, Blurred Vision, Change in Vision, Decreased Night Vision, Diplopia, Discharge, Dry Eye, Exophthalmos, Floaters, Irritation, Itchy Eyes, Loss of Peripheral Vision, Pain, Photophobia, Requires Corrective Lenses, Sees Flashes, Spots in Vision, Tunnel Vision, Other Visual Disturbances, Loss of Vision, Other Ears: absent: As Per HPI, Decreased Hearing, Ear Discharge, Ear Pain, Tinnitus, Abnormal Hearing, Disequilibrium, Dizziness, Other Nose/Mouth/Throat: absent: As Per HPI, Epistaxis, Nasal Congestion, Nasal Discharge, Nasal Obstruction, Nasal Trauma, Nose Pain, Post Nasal Drip, Sinus Pain, Sinus Pressure, Bleeding Gums, Change in Voice, Dental Pain, Dry Mouth, Dysphagia, Halitosis, Hoarsness, Lip Swelling, Mouth Lesions, Mouth Pain, Odynophagia, Sore Throat, Throat Swelling, Tongue Swelling, Facial Pain, Neck Pain, Neck Mass, Other - Breasts Breasts: absent: As Per HPI, Change in Shape, Mass, Pain, Nipple Discharge, Nipple Inversion, Skin Changes, Swelling, Other - Cardiovascular Cardiovascular: As Per HPI - Respiratory Respiratory: As Per HPI, Cough, Dyspnea. absent: Hemoptysis Past Patient History - Infectious Disease Hx of Infectious Diseases: None - Tetanus Immunizations Tetanus Immunization: Unknown - Past Medical History & Family History Past Medical History?: Yes - Past Social History Smoking Status: Unknown If Ever Smoked - CARDIAC Hx Congestive Heart Failure: Yes Hx Hypercholesterolemia: No Hx Hypertension: Yes - PULMONARY Hx Asthma: Yes Hx Bronchitis: Yes Hx Chronic Obstructive Pulmonary Disease (COPD): Yes Hx Emphysema: Yes Hx Pneumonia: Yes Hx Sleep Apnea: Yes - NEUROLOGICAL Hx Seizures: Yes - HEENT Hx HEENT Problems: Yes Hx Cataracts: Yes - RENAL Hx Chronic Kidney Disease: No - ENDOCRINE/METABOLIC Hx Hypothyroidism: No - HEMATOLOGICAL/ONCOLOGICAL Hx Human Immunodeficiency Virus (HIV): No - INTEGUMENTARY Hx Dermatological Problems: No - MUSCULOSKELETAL/RHEUMATOLOGICAL Hx Arthritis: No Hx Rheumatoid Arthritis: No - GASTROINTESTINAL Hx Gall Bladder Disease: Yes - GENITOURINARY/GYNECOLOGICAL Hx Sexually Transmitted Disorders: No - PSYCHIATRIC Hx Anxiety: Yes Hx Bipolar Disorder: Yes Hx Depression: Yes Hx Substance Use: No - SURGICAL HISTORY Hx Appendectomy: Yes Hx Cholecystectomy: Yes - ANESTHESIA Hx Anesthesia: Yes Hx Anesthesia Reactions: No Hx Malignant Hyperthermia: No Meds Allergies/Adverse Reactions: Allergies Allergy/AdvReac Type Severity Reaction Status Date / Time aspirin Allergy ANAPHYLAXIS Verified 11/29/17 23:33 ceftriaxone sodium Allergy ANAPHYLAXIS Verified 11/29/17 23:33 [From Rocephin] ibuprofen [From Motrin] Allergy ANAPHYLAXIS Verified 11/29/17 23:33 iodine Allergy ANAPHYLAXIS Verified 11/29/17 23:33 raspberry Allergy ANAPHYLAXIS Verified 11/29/17 23:33 - Medications Medications: Current Medications Acetaminophen (Tylenol 325mg Tab) 650 mg PO Q6 PRN PRN Reason: fever Albuterol/Ipratropium (Duoneb 3 Mg/0.5 Mg (3 Ml) Ud) 3 ml INH RQ4 [facility] Last Admin: 12/31/17 11:15 Dose: 3 ml Enoxaparin Sodium (Lovenox) 40 mg SC DAILY [facility] Last Admin: 12/31/17 10:35 Dose: 40 mg Gabapentin (Neurontin) 800 mg PO TID [facility] Last Admin: 12/31/17 10:28 Dose: 800 mg Piperacillin Sod/Tazobactam (Sod 3.375 gm/ Sodium Chloride) 100 mls @ 200 mls/hr IVPB Q6H [facility]; Protocol Last Admin: 12/31/17 06:03 Dose: 200 mls/hr Insulin Aspart (Novolog) 0 unit SC ACHS [facility]; Protocol Last Admin: 12/31/17 07:58 Dose: 2 units Insulin Glargine (Lantus) 17 unit SC AC [facility] Last Admin: 12/31/17 08:50 Dose: 17 units Lorazepam (Ativan) 2 mg PO Q12 PRN PRN Reason: Anxiety Last Admin: 12/30/17 17:47 Dose: 2 mg Montelukast Sodium (Singulair) 10 mg PO HS [facility] Last Admin: 12/30/17 21:37 Dose: 10 mg Oxycodone/Acetaminophen (Percocet 5/325 Mg Tab) 1 tab PO Q4H PRN PRN Reason: Pain, moderate (4-7) Stop: 12/31/17 22:07 Last Admin: 12/31/17 10:48 Dose: 1 tab Pantoprazole Sodium (Protonix Ec Tab) 20 mg PO DAILY [facility] Last Admin: 12/31/17 10:33 Dose: 20 mg Prednisone (Prednisone Tab) 20 mg PO DAILY [facility] Last Admin: 12/31/17 10:35 Dose: 20 mg Promethazine HCl/Codeine (Phenergan/Codeine Oral Syrup) 5 ml PO Q4 PRN PRN Reason: Cough and congestion Last Admin: 12/29/17 17:22 Dose: 5 ml Quetiapine Fumarate (Seroquel Xr) 400 mg PO Q12 [facility] Last Admin: 12/31/17 10:28 Dose: 400 mg Sertraline HCl (Zoloft) 100 mg PO BID [facility] Last Admin: 12/31/17 10:29 Dose: 100 mg Physical Exam - Constitutional Appears: Chronically Ill - Head Exam Head Exam: ATRAUMATIC - Eye Exam Eye Exam: absent: Scleral icterus - ENT Exam ENT Exam: Mucous Membranes Dry - Neck Exam Neck exam: Negative for: Lymphadenopathy - Respiratory Exam Respiratory Exam: Decreased Breath Sounds - Cardiovascular Exam Cardiovascular Exam: REGULAR RHYTHM - GI/Abdominal Exam GI & Abdominal Exam: Diminished Bowel Sounds, Soft - Rectal Exam Rectal Exam: Deferred - Exam Exam: NORMAL INSPECTION - Extremities Exam Extremities exam: Negative for: pedal edema - Back Exam Back exam: absent: CVA tenderness (L), CVA tenderness (R) - Neurological Exam Neurological exam: Alert, CN II-XII Intact - Psychiatric Exam Psychiatric exam: Depressed - Skin Skin Exam: Dry Results - Vital Signs Recent Vital Signs: Last Vital Signs Temp 98.2 F 12/31/17 08:19 Pulse 76 12/31/17 08:19 Resp 20 12/31/17 08:19 BP 125/75 12/31/17 08:19 Pulse Ox 96 12/31/17 08:19 - Labs Result Diagrams: 12/28/17 17:46 12/28/17 17:46 Labs: Laboratory Results - last 24 hr 12/30/17 12/30/17 12/30/17 11:44 16:20 21:02 POC Glucose (mg/dL) 119 H 175 H 168 H 12/31/17 12/31/17 07:18 10:54 POC Glucose (mg/dL) 190 H 133 H Assessment & Plan (1) COPD exacerbation Status: Acute - Assessment and Plan (Free Text) Assessment: has had esbl + sputum in the past will screen and start merrem has tolerated merrem in the past w/o side effects
--- NOTE | 2017-12-31 12:13 | CARD ---
APPROVED REPORT Date of service: 12/28/2017 EKG Measurement Heart [id number] <Conclusion> Normal sinus rhythm Normal ECG
--- NOTE | 2017-12-31 17:01 | CP.PCM.PN ---
Subjective - Date & Time of Evaluation Date of Evaluation: 12/31/17 Time of Evaluation: 08:30 - Subjective Subjective: Patient seen and examined at bedside. Afebrile and in no acute distress. Complains of cough with secretions and right-sided neck pain that radiates to the occiput, worse with cough. Also admits to left-sided low back pain. Denies chest pain, fever, shortness of breath. CXR (12/28/17): no pneumothorax or pleural fluid; no significant change in left mid/lower lung opacity. Urine culture (12/28): positive for Proteus Mirabilis Objective - Vital Signs/Intake and Output Vital Signs (last 24 hours): Temp Pulse Resp BP Pulse Ox 99 F 84 20 115/55 L 95 12/31/17 16:00 12/31/17 16:00 12/31/17 16:00 12/31/17 16:00 12/31/17 16:00 Intake and Output: 12/31/17 12/31/17 06:59 18:59 Intake Total 450 860 Balance 450 860 - Medications Medications: Current Medications Acetaminophen (Tylenol 325mg Tab) 650 mg PO Q6 PRN PRN Reason: fever Albuterol/Ipratropium (Duoneb 3 Mg/0.5 Mg (3 Ml) Ud) 3 ml INH RQ4 [facility] Last Admin: 12/31/17 16:57 Dose: 3 ml Enoxaparin Sodium (Lovenox) 40 mg SC DAILY [facility] Last Admin: 12/31/17 10:35 Dose: 40 mg Gabapentin (Neurontin) 800 mg PO TID [facility] Last Admin: 12/31/17 13:55 Dose: 800 mg Meropenem 1 gm/ Sodium (Chloride) 100 mls @ 100 mls/hr IVPB Q8H [facility]; Protocol Insulin Aspart (Novolog) 0 unit SC ACHS [facility]; Protocol Last Admin: 12/31/17 12:30 Dose: Not Given Insulin Glargine (Lantus) 17 unit SC AC [facility] Last Admin: 12/31/17 12:00 Dose: 17 units Lorazepam (Ativan) 2 mg PO Q12 PRN PRN Reason: Anxiety Last Admin: 12/30/17 17:47 Dose: 2 mg Montelukast Sodium (Singulair) 10 mg PO HS [facility] Last Admin: 12/30/17 21:37 Dose: 10 mg Oxycodone/Acetaminophen (Percocet 5/325 Mg Tab) 1 tab PO Q4H PRN PRN Reason: Pain, moderate (4-7) Stop: 12/31/17 22:07 Last Admin: 12/31/17 16:01 Dose: 1 tab Pantoprazole Sodium (Protonix Ec Tab) 20 mg PO DAILY [facility] Last Admin: 12/31/17 10:33 Dose: 20 mg Prednisone (Prednisone Tab) 20 mg PO DAILY [facility] Last Admin: 12/31/17 10:35 Dose: 20 mg Promethazine HCl/Codeine (Phenergan/Codeine Oral Syrup) 5 ml PO Q4 PRN PRN Reason: Cough and congestion Last Admin: 12/29/17 17:22 Dose: 5 ml Quetiapine Fumarate (Seroquel Xr) 400 mg PO Q12 [facility] Last Admin: 12/31/17 10:28 Dose: 400 mg Sertraline HCl (Zoloft) 100 mg PO BID [facility] Last Admin: 12/31/17 10:29 Dose: 100 mg - Labs Labs: 12/28/17 17:46 12/28/17 17:46 PT 10.9 SECONDS (9.7-12.2) 12/28/17 17:46 INR 1.0 12/28/17 17:46 APTT 36 SECONDS (21-34) H 12/28/17 17:46 Assessment and Plan (1) Tracheobronchitis Status: Acute (2) COPD exacerbation Status: Acute (3) Tracheostomy dependence Status: Acute
[2017-12-31] MEDS: Promethazine/Cod 6.25mg-10mg/5ml Syr UD PO PRN (17:32)
[2017-12-31] MEDS: Meropenem 1 GM in Sodium Chloride 0.9% 100 ML IVPB SCH (17:34)
[2017-12-31] MEDS ORDERED: Oxycodone/Acetaminophen 5/325 mg Tab PO PRN (18:31)
--- NOTE | 2017-12-31 23:49 | CP.PCM.PN ---
Subjective - Subjective Subjective: dictated Objective - Vital Signs/Intake and Output Vital Signs (last 24 hours): Temp Pulse Resp BP Pulse Ox 99 F 84 20 115/55 L 95 12/31/17 16:00 12/31/17 16:00 12/31/17 16:00 12/31/17 16:00 12/31/17 16:00 Intake and Output: 12/31/17 01/01/18 18:59 06:59 Intake Total 860 520 Balance 860 520 - Medications Medications: Current Medications Acetaminophen (Tylenol 325mg Tab) 650 mg PO Q6 PRN PRN Reason: fever Albuterol/Ipratropium (Duoneb 3 Mg/0.5 Mg (3 Ml) Ud) 3 ml INH RQ4 [facility] Last Admin: 12/31/17 20:53 Dose: 3 ml Enoxaparin Sodium (Lovenox) 40 mg SC DAILY [facility] Last Admin: 12/31/17 10:35 Dose: 40 mg Gabapentin (Neurontin) 800 mg PO TID [facility] Last Admin: 12/31/17 17:33 Dose: 800 mg Meropenem 1 gm/ Sodium (Chloride) 100 mls @ 100 mls/hr IVPB Q8H [facility]; Protocol Last Admin: 12/31/17 17:34 Dose: 100 mls/hr Insulin Aspart (Novolog) 0 unit SC ACHS [facility]; Protocol Last Admin: 12/31/17 21:49 Dose: Not Given Insulin Glargine (Lantus) 17 unit SC AC [facility] Last Admin: 12/31/17 17:36 Dose: 17 units Lorazepam (Ativan) 2 mg PO Q12 PRN PRN Reason: Anxiety Last Admin: 12/30/17 17:47 Dose: 2 mg Montelukast Sodium (Singulair) 10 mg PO HS [facility] Last Admin: 12/31/17 21:33 Dose: 10 mg Morphine Sulfate (Morphine) 2 mg IVP Q4 PRN PRN Reason: Pain, moderate (4-7) Last Admin: 12/31/17 19:30 Dose: 2 mg Pantoprazole Sodium (Protonix Ec Tab) 20 mg PO DAILY [facility] Last Admin: 12/31/17 10:33 Dose: 20 mg Prednisone (Prednisone Tab) 20 mg PO DAILY [facility] Last Admin: 12/31/17 10:35 Dose: 20 mg Promethazine HCl/Codeine (Phenergan/Codeine Oral Syrup) 5 ml PO Q4 PRN PRN Reason: Cough and congestion Last Admin: 12/31/17 17:32 Dose: 5 ml Quetiapine Fumarate (Seroquel Xr) 400 mg PO Q12 [facility] Last Admin: 12/31/17 21:31 Dose: 400 mg Sertraline HCl (Zoloft) 100 mg PO BID [facility] Last Admin: 12/31/17 17:34 Dose: 100 mg - Labs Labs: 12/28/17 17:46 12/28/17 17:46 PT 10.9 SECONDS (9.7-12.2) 12/28/17 17:46 INR 1.0 12/28/17 17:46 APTT 36 SECONDS (21-34) H 12/28/17 17:46 Assessment and Plan (1) Asthma exacerbation Status: Acute (2) Tracheostomy complication Status: Chronic (3) Bipolar disorder Status: Chronic (4) Diabetes mellitus Status: Chronic
[2018-01-01] MEDS: Albuterol-Ipratrop 3 mg / 0.5 (3 ml) UD INH SCH ×7 (00:16→23:56)
[2018-01-01] MEDS: Meropenem 1 GM in Sodium Chloride 0.9% 100 ML IVPB SCH ×4 (00:27→23:54)
[2018-01-01] MEDS: Promethazine/Cod 6.25mg-10mg/5ml Syr UD PO PRN (00:27)
--- NOTE | 2018-01-01 05:50 | PN ---
DATE: 12/31/2017 SUBJECTIVE: The patient is less congested, less short of breath. She has decreased sputum production. She denies any chest pain. She has persistent cough. PHYSICAL EXAMINATION: VITAL SIGNS: Blood pressure 115/55, pulse 84, respiratory rate 20, and temperature 98. LUNGS: Bilateral expiratory and inspiratory rhonchi. Decreased air entry. CARDIOVASCULAR SYSTEM: S1 and S2. Regular. ABDOMEN: Soft. ASSESSMENT: 1. Acute tracheobronchitis with multidrug-resistant Proteus mirabilis. 2. Urinary tract infection with Proteus mirabilis. 3. Bronchial asthma. 4. Diabetes. 5. Major depression. PLAN: Continue antibiotics. Plan cultures, ID followup. Monitor the patient. Ad Khan MD
[2018-01-01] MEDS: (Novolog) Insulin Aspart, Recombinant 100 u/ml 10 ml vial SC SCH ×4 (07:41→22:02)
[2018-01-01] MEDS: (Lantus) Insulin Glargine, Recombinant SC SCH ×3 (07:57→18:51)
[2018-01-01] MEDS: Enoxaparin 40 mg Syringe SC SCH (10:24)
[2018-01-01] MEDS: Pantoprazole 20 mg EC Tab PO SCH (10:24)
[2018-01-01] MEDS: QUEtiapine 200 mg XR Tab PO SCH ×2 (10:24→21:47)
--- NOTE | 2018-01-01 12:27 | CP.PCM.PN ---
Subjective - Date & Time of Evaluation Date of Evaluation: 01/01/18 Time of Evaluation: 09:00 - Subjective Subjective: c/o thick sputum iv rx renewed Objective - Vital Signs/Intake and Output Vital Signs (last 24 hours): Temp Pulse Resp BP Pulse Ox 98.3 F 81 20 104/68 98 01/01/18 08:23 01/01/18 08:23 01/01/18 08:23 01/01/18 08:23 01/01/18 08:23 Intake and Output: 01/01/18 01/01/18 06:59 18:59 Intake Total 520 Balance 520 - Medications Medications: Current Medications Acetaminophen (Tylenol 325mg Tab) 650 mg PO Q6 PRN PRN Reason: fever Albuterol/Ipratropium (Duoneb 3 Mg/0.5 Mg (3 Ml) Ud) 3 ml INH RQ4 [facility] Last Admin: 01/01/18 03:43 Dose: 3 ml Enoxaparin Sodium (Lovenox) 40 mg SC DAILY [facility] Last Admin: 01/01/18 10:24 Dose: 40 mg Gabapentin (Neurontin) 800 mg PO TID [facility] Last Admin: 01/01/18 10:24 Dose: 800 mg Meropenem 1 gm/ Sodium (Chloride) 100 mls @ 100 mls/hr IVPB Q8H [facility] [place]; Protocol Last Admin: 01/01/18 08:38 Dose: 100 mls/hr Insulin Aspart (Novolog) 0 unit SC ACHS [facility] [place]; Protocol Last Admin: 01/01/18 12:01 Dose: 2 units Insulin Glargine (Lantus) 17 unit SC AC [facility] [place] Last Admin: 01/01/18 12:00 Dose: 17 units Lorazepam (Ativan) 2 mg PO Q12 PRN PRN Reason: Anxiety Last Admin: 12/30/17 17:47 Dose: 2 mg Montelukast Sodium (Singulair) 10 mg PO HS [facility] Last Admin: 12/31/17 21:33 Dose: 10 mg Morphine Sulfate (Morphine) 2 mg IVP Q4 PRN PRN Reason: Pain, moderate (4-7) Last Admin: 01/01/18 08:39 Dose: 2 mg Pantoprazole Sodium (Protonix Ec Tab) 20 mg PO DAILY [facility] [place] Last Admin: 01/01/18 10:24 Dose: 20 mg Prednisone (Prednisone Tab) 20 mg PO DAILY [facility] [place] Last Admin: 01/01/18 10:24 Dose: 20 mg Promethazine HCl/Codeine (Phenergan/Codeine Oral Syrup) 5 ml PO Q4 PRN PRN Reason: Cough and congestion Last Admin: 01/01/18 00:27 Dose: 5 ml Quetiapine Fumarate (Seroquel Xr) 400 mg PO Q12 [facility] [place] Last Admin: 01/01/18 10:24 Dose: 400 mg Sertraline HCl (Zoloft) 100 mg PO BID [facility] [place] Last Admin: 01/01/18 10:24 Dose: 100 mg - Labs Labs: 12/28/17 17:46 12/28/17 17:46 PT 10.9 SECONDS (9.7-12.2) 12/28/17 17:46 INR 1.0 12/28/17 17:46 APTT 36 SECONDS (21-34) H 12/28/17 17:46 - Constitutional Appears: Non-toxic - Head Exam Head Exam: NORMOCEPHALIC - Eye Exam Eye Exam: absent: Scleral icterus - ENT Exam ENT Exam: Mucous Membranes Dry - Neck Exam Neck Exam: absent: Lymphadenopathy - Respiratory Exam Respiratory Exam: Decreased Breath Sounds - Cardiovascular Exam Cardiovascular Exam: REGULAR RHYTHM - GI/Abdominal Exam GI & Abdominal Exam: Distended Assessment and Plan (1) COPD exacerbation Status: Acute
[2018-01-01 13:56] LABS: BASO % 0.3 % (0.0-2.0); EOS # 0.1 K/uL (0.0-0.7); EOS % 0.5 % (0.0-4.0); HEMOGLOBIN 11.9 g/dL (11.0-16.0); LYMPH # 1.6 K/uL (1.0-4.3); LYMPH % 11.3 % (20.0-40.0); MEAN CELL VOLUME 78.9 fL (81.0-99.0); MEAN CORPUSCULAR HEMOGLOBIN 25.4 pg (27.0-31.0); MEAN CORPUSCULAR HGB CONC 32.2 g/dL (33.0-37.0); MONO # 0.7 K/uL (0.0-0.8); MONO % 5.2 % (0.0-10.0); NEUT # 11.8 K/uL (1.8-7.0); NEUT % 82.7 % (50.0-75.0); RBC 4.71 Mil/uL (3.80-5.20); RED CELL DISTRIBUTION WIDTH 17.8 % (11.5-14.5); WHITE BLOOD COUNT 14.2 K/uL (4.8-10.8)
[2018-01-01 14:14] LABS: BLOOD UREA NITROGEN 19 mg/dL (7-17); CALCIUM 9.1 mg/dl (8.6-10.4); GFR NON-AFRICAN AMERICAN > 60
--- NOTE | 2018-01-01 16:41 | CP.PCM.PN ---
Subjective - Date & Time of Evaluation Date of Evaluation: 01/01/18 Time of Evaluation: 13:30 - Subjective Subjective: Patient seen and examined at bedside. Afebrile and in no acute distress. Cough is improving, but complains of throat congestion from the secretions. Still admits to right-sided neck pain with cough. Denies chest pain, fever, shortness of breath. -Sputum culture: gram stain = few polymorphonuclear WBCs, few yeast, few GP cocci in clusters, few GP cocci in chains; culture pending Objective - Vital Signs/Intake and Output Vital Signs (last 24 hours): Temp Pulse Resp BP Pulse Ox 98.3 F 81 20 104/68 98 01/01/18 08:23 01/01/18 08:23 01/01/18 08:23 01/01/18 08:23 01/01/18 08:23 Intake and Output: 01/01/18 01/01/18 06:59 18:59 Intake Total 520 400 Balance 520 400 - Medications Medications: Current Medications Acetaminophen (Tylenol 325mg Tab) 650 mg PO Q6 PRN PRN Reason: fever Albuterol/Ipratropium (Duoneb 3 Mg/0.5 Mg (3 Ml) Ud) 3 ml INH RQ4 [facility] Last Admin: 01/01/18 15:35 Dose: 3 ml Enoxaparin Sodium (Lovenox) 40 mg SC DAILY [facility] Last Admin: 01/01/18 10:24 Dose: 40 mg Gabapentin (Neurontin) 800 mg PO TID [facility] Last Admin: 01/01/18 13:32 Dose: 800 mg Meropenem 1 gm/ Sodium (Chloride) 100 mls @ 100 mls/hr IVPB Q8H [facility]; Protocol Last Admin: 01/01/18 08:38 Dose: 100 mls/hr Insulin Aspart (Novolog) 0 unit SC ACHS [facility]; Protocol Last Admin: 01/01/18 12:01 Dose: 2 units Insulin Glargine (Lantus) 17 unit SC AC [facility] Last Admin: 01/01/18 12:00 Dose: 17 units Lorazepam (Ativan) 2 mg PO Q12 PRN PRN Reason: Anxiety Last Admin: 12/30/17 17:47 Dose: 2 mg Montelukast Sodium (Singulair) 10 mg PO HS [facility] Last Admin: 12/31/17 21:33 Dose: 10 mg Morphine Sulfate (Morphine) 2 mg IVP Q4 PRN PRN Reason: Pain, moderate (4-7) Last Admin: 01/01/18 08:39 Dose: 2 mg Pantoprazole Sodium (Protonix Ec Tab) 20 mg PO DAILY [facility] Last Admin: 01/01/18 10:24 Dose: 20 mg Prednisone (Prednisone Tab) 20 mg PO DAILY [facility] Last Admin: 01/01/18 10:24 Dose: 20 mg Promethazine HCl/Codeine (Phenergan/Codeine Oral Syrup) 5 ml PO Q4 PRN PRN Reason: Cough and congestion Last Admin: 01/01/18 00:27 Dose: 5 ml Quetiapine Fumarate (Seroquel Xr) 400 mg PO Q12 [facility] Last Admin: 01/01/18 10:24 Dose: 400 mg Sertraline HCl (Zoloft) 100 mg PO BID [facility] Last Admin: 01/01/18 10:24 Dose: 100 mg - Labs Labs: 01/01/18 13:48 01/01/18 13:48 PT 10.9 SECONDS (9.7-12.2) 12/28/17 17:46 INR 1.0 12/28/17 17:46 APTT 36 SECONDS (21-34) H 12/28/17 17:46 Assessment and Plan (1) Tracheobronchitis Status: Acute (2) COPD exacerbation Status: Acute (3) Tracheostomy dependence Status: Acute
[2018-01-01] MEDS: Acetylcysteine 20% Inhal Soln (4ml) INH SCH ×3 (17:20→23:56)
--- NOTE | 2018-01-01 17:34 | PCM.RRT ---
<Jose Armando Abdi - Last Filed: 01/01/18 18:54> DIRECTOR RECREATION Nurses Assessment - Situation Date: 01/01/18 Time DIRECTOR RECREATION was called: 17:31 DIRECTOR RECREATION Responder Arrival Time:: 17:31 DIRECTOR RECREATION Location:: Med/Oncology DIRECTOR RECREATION Reason for Call: O2 Saturation below 90% DIRECTOR RECREATION Called By: RN - IV IV Inserted during DIRECTOR RECREATION?: Yes New IV Insertion Tolerance: Good - Respiratory DIRECTOR RECREATION Delivery Method: Trach Collar @% Received Nebulizer Treatments: Yes Was the Patient Ventilated with Bag/Mask 100% O2?: No Secretions Suctioned?: Yes Was the Patient Placed on a Ventilator?: No - Ventilator Settings SAO2 %: 97 CPR started during DIRECTOR RECREATION?: No - Selina Coma Scale Coma Scale Eye Opening: Spontaneous Coma Scale Motor: Obeys Commands Movement Coma Scale Verbal: Oriented Coma Scale Total: 15 - Recommendations 5) DIRECTOR RECREATION Level of Care Recommendations: Remain in current setting Notifications: Attending Physician I.Reason for DIRECTOR RECREATION - A) Acute Change in Patient: (Select all that apply): Staff member or family is worried about patient - Neurological Status (Select all that apply): Alert, Responsive, Oriented, Verbal, Follows Commands - Respiratory Oxygen Delivery Method: Trach Collar @% - Constitutional Appears: In Acute Distress, Older Than Stated Age - Head Head Exam: ATRAUMATIC (trach collar in place with copious white secrtions ) - Eyes Eye Exam: EOMI, Normal appearance - Respiratory Exam Respiratory Exam: Accessory Muscle Use, Rales, Rhonchi, Wheezes, Respiratory Distress. absent: Chest Wall Tenderness, Decreased Breath Sounds, Clear to Ausculation Bilateral, Stridor, NORMAL BREATHING PATTERN - Cardiovascular Exam Cardiovascular Exam: Tachycardia - GI/Abdominal Exam GI & Abdominal Exam: Soft, Normal Bowel Sounds. absent: Tenderness - Neurological Exam Neurological Exam: Alert, Awake, Oriented x3 - Extremities Exam Extremities Exam: Calf Tenderness, Normal Inspection Plan - Assessment of Findings&Treatment Plan Pt is well known to provider who has presented in respiratory distress many times patient has trach collar that is too small for neck habitus; copious secretions coming out of trach collar upon suctioning the patients saturation went back up to 96-100% while on respiratory treatments chest xray ordered solumedrol 125mg IV given Morphine 2mg IV given Ativan 2mg IV given patient became suicidal during questioning and will be placed on 1:1 with psych consult as well; states she will put pillow over face to kill self Patient saturating at 100% while on treatments will be moved to telemetry will recommend that patient have larger trach collar placed patient seen and examined with Dr. Ren and Dr. Melanie Abdi PGY3 <Sera Ren V - Last Filed: 01/04/18 23:05> DIRECTOR RECREATION Nurses Assessment - Vital Signs Vital Signs: Rapid Response Vital Sign Blood Pressure 177/93 Pulse Rate 136 Respiratory Rate 25 Temperature 98.5 F Oxygen Saturation 84 - Vital Signs at end of DIRECTOR RECREATION Vital Signs at end of DIRECTOR RECREATION: Rapid Response End Vital Sign Blood Pressure 144/79 Pulse Rate 101 Respiratory Rate 20 Temperature 98.7 F O2 Sat by Pulse Oximetry 94 Attending/Attestation - Attestation I have personally seen and examined this patient.: Yes I have fully participated in the care of the patient.: Yes I have reviewed all pertinent clinical information, including history, physical exam and plan: Yes Notes (Text): Late computer entry Reason: respiratory distress. Patient noted to have thicken secretions. Respiratory therapist at bedside suctioning trach collar. Nursing had to obtain peripheral IV line since patient did not have one. Add mucomyst to thin out secretions; add solumedrol to reduce inflammation from exacerbation. Patient given ativan once oxygen status improved to calm anxiety and morphine given sensitivity over trach. Case discussed with patient's pulm, dr vargas who knows patient very well. patient transferred to telemetry to monitor in light of hypoxia; Patient threatened to suffocate herself with her pillow; reporting she felt sad and visibly anxious after her respiratory status had stabilized. Psych consulted and 1:1 ordered.
--- NOTE | 2018-01-01 17:53 | RAD ---
HISTORY: respiratory distress COMPARISON: Chest x-ray performed 12/28/17 TECHNIQUE: Chest, one view. FINDINGS: Examination limited by habitus. Face mask obscures evaluation of the upper lung perez. Tracheostomy tube. LUNGS: Moderate pulmonary venous congestion. Patchy infiltrates involving the inferior right upper and bilateral lower lobes. Biapical pleural thickening. Please note that chest x-ray has limited sensitivity for the detection of pulmonary masses. PLEURA: No significant pleural effusion identified. No definite pneumothorax . CARDIOVASCULAR: Cardiomegaly. No significant atherosclerotic calcification present. OSSEOUS STRUCTURES: Degenerative changes of the spine. VISUALIZED UPPER ABDOMEN: Unremarkable. OTHER FINDINGS: None. IMPRESSION: Moderate pulmonary venous congestion. Patchy infiltrates involving the inferior right upper and bilateral lower lobes. Tracheostomy tube. Cardiomegaly.
[2018-01-01 18:00] LABS: ABG ALLEN TEST POS; ARTERIAL BLOOD GAS HCO3 28.1 mmol/L (21-28); ARTERIAL BLOOD GAS O2 SAT 97.2 % (95-98); ARTERIAL BLOOD GAS PCO2 53 mm/Hg (35-45); ARTERIAL BLOOD GAS PH 7.37 (7.35-7.45); ARTERIAL BLOOD GAS PO2 75 mm/Hg (80-100); ARTERIAL BLOOD GAS TCO2 32.2 mmol/L (22-28)
[2018-01-02] MEDS ORDERED: (Novolin R) Insulin Human Regular 100 units/ml vial SC ONE (02:30)
[2018-01-02] MEDS: Acetylcysteine 20% Inhal Soln (4ml) INH SCH ×5 (03:24→19:30)
[2018-01-02] MEDS: Albuterol-Ipratrop 3 mg / 0.5 (3 ml) UD INH SCH ×5 (03:24→19:30)
--- NOTE | 2018-01-02 06:25 | CP.PCM.PN ---
Subjective - Date & Time of Evaluation Date of Evaluation: 01/01/18 - Subjective Subjective: dictated Objective - Vital Signs/Intake and Output Vital Signs (last 24 hours): Temp Pulse Resp BP Pulse Ox 99 F 80 20 135/75 97 01/01/18 21:30 01/01/18 23:25 01/01/18 21:30 01/01/18 21:30 01/01/18 21:30 Intake and Output: 01/01/18 01/02/18 18:59 06:59 Intake Total 400 200 Balance 400 200 - Medications Medications: Current Medications Acetaminophen (Tylenol 325mg Tab) 650 mg PO Q6 PRN PRN Reason: fever Acetylcysteine (Acetylcysteine 20%) 4 ml INH RQ4 [facility] Last Admin: 01/02/18 03:24 Dose: 4 ml Albuterol/Ipratropium (Duoneb 3 Mg/0.5 Mg (3 Ml) Ud) 3 ml INH RQ4 [facility] Last Admin: 01/02/18 03:24 Dose: 3 ml Enoxaparin Sodium (Lovenox) 40 mg SC DAILY [facility] Last Admin: 01/01/18 10:24 Dose: 40 mg Gabapentin (Neurontin) 800 mg PO TID [facility] Last Admin: 01/01/18 20:22 Dose: 800 mg Meropenem 1 gm/ Sodium (Chloride) 100 mls @ 100 mls/hr IVPB Q8H [facility]; Protocol Last Admin: 01/01/18 23:54 Dose: 100 mls/hr Insulin Aspart (Novolog) 0 unit SC ACHS [facility]; Protocol Last Admin: 01/01/18 22:02 Dose: 3 units Insulin Glargine (Lantus) 17 unit SC AC [facility] Last Admin: 01/01/18 18:51 Dose: 17 units Lorazepam (Ativan) 2 mg PO Q12 PRN PRN Reason: Anxiety Last Admin: 01/01/18 17:00 Dose: 2 mg Montelukast Sodium (Singulair) 10 mg PO HS [facility] Last Admin: 01/01/18 21:48 Dose: 10 mg Morphine Sulfate (Morphine) 2 mg IVP Q4 PRN PRN Reason: Pain, moderate (4-7) Last Admin: 01/02/18 06:21 Dose: 2 mg Pantoprazole Sodium (Protonix Ec Tab) 20 mg PO DAILY [facility] Last Admin: 01/01/18 10:24 Dose: 20 mg Prednisone (Prednisone Tab) 20 mg PO DAILY [facility] Last Admin: 01/01/18 10:24 Dose: 20 mg Promethazine HCl/Codeine (Phenergan/Codeine Oral Syrup) 5 ml PO Q4 PRN PRN Reason: Cough and congestion Last Admin: 01/01/18 00:27 Dose: 5 ml Quetiapine Fumarate (Seroquel Xr) 400 mg PO Q12 [facility] Last Admin: 01/01/18 21:47 Dose: 400 mg Sertraline HCl (Zoloft) 100 mg PO BID [facility] Last Admin: 01/01/18 20:23 Dose: 100 mg - Labs Labs: 01/01/18 13:48 01/01/18 13:48 PT 10.9 SECONDS (9.7-12.2) 12/28/17 17:46 INR 1.0 12/28/17 17:46 APTT 36 SECONDS (21-34) H 12/28/17 17:46 Assessment and Plan (1) Asthma exacerbation Status: Acute (2) Tracheostomy complication Status: Chronic (3) Bipolar disorder Status: Chronic (4) Diabetes mellitus Status: Chronic
[2018-01-02] MEDS: (Novolog) Insulin Aspart, Recombinant 100 u/ml 10 ml vial SC SCH ×4 (08:29→21:32)
[2018-01-02] MEDS: (Lantus) Insulin Glargine, Recombinant SC SCH ×2 (08:29→11:30)
[2018-01-02] MEDS: Meropenem 1 GM in Sodium Chloride 0.9% 100 ML IVPB SCH ×3 (08:41→23:58)
[2018-01-02] MEDS: Pantoprazole 20 mg EC Tab PO SCH (09:39)
[2018-01-02] MEDS: Enoxaparin 40 mg Syringe SC SCH (09:42)
[2018-01-02] MEDS: QUEtiapine 200 mg XR Tab PO SCH ×2 (10:54→21:32)
--- NOTE | 2018-01-02 13:37 | PN ---
DATE: 01/02/2018 SUBJECTIVE: The patientEhsan is gradually improving. Secretions not going down. She has multidrug-resistant Proteus mirabilis. PHYSICAL EXAMINATION: SKIN: No rashes. No bruises. No purpura. LUNGS: Bilateral decreased air entry. Positive rhonchi. CARDIOVASCULAR SYSTEM: S1 and S2, regular, bilateral. No heave noted. ASSESSMENT: 1. Tracheobronchitis with multidrug-resistant Proteus mirabilis, on Merrem. 2. Urinary tract infection. 3. Bronchial asthma. 4. Type 2 diabetes. PLAN: Accu-Chek, sliding scale, antibiotics. Monitor the patient. Ad Khan MD
--- NOTE | 2018-01-02 18:19 | CP.PCM.PN ---
Subjective - Date & Time of Evaluation Date of Evaluation: 01/02/18 Time of Evaluation: 14:00 - Subjective Subjective: pt was seen and examined cough much improved Afebrile Patient feeling depressed Continue antibiotics Continue nebulizer treatment Continue IV steroids Objective - Vital Signs/Intake and Output Vital Signs (last 24 hours): Temp Pulse Resp BP Pulse Ox 98.7 F 90 20 116/64 95 01/02/18 16:07 01/02/18 16:07 01/02/18 16:07 01/02/18 16:07 01/02/18 16:07 Intake and Output: 01/02/18 01/02/18 06:59 18:59 Intake Total 300 Balance 300 - Medications Medications: Current Medications Acetaminophen (Tylenol 325mg Tab) 650 mg PO Q6 PRN PRN Reason: fever Acetylcysteine (Acetylcysteine 20%) 4 ml INH RQ4 [facility] Last Admin: 01/02/18 15:36 Dose: 4 ml Albuterol/Ipratropium (Duoneb 3 Mg/0.5 Mg (3 Ml) Ud) 3 ml INH RQ4 [facility] Last Admin: 01/02/18 15:36 Dose: 3 ml Enoxaparin Sodium (Lovenox) 40 mg SC DAILY [facility] Last Admin: 01/02/18 09:42 Dose: 40 mg Gabapentin (Neurontin) 800 mg PO TID [facility] Last Admin: 01/02/18 17:16 Dose: 800 mg Meropenem 1 gm/ Sodium (Chloride) 100 mls @ 100 mls/hr IVPB Q8H [facility]; Protocol Last Admin: 01/02/18 16:05 Dose: 100 mls/hr Insulin Aspart (Novolog) 0 unit SC ACHS [facility]; Protocol Last Admin: 01/02/18 17:16 Dose: 3 units Insulin Glargine (Lantus) 17 unit SC HS [facility] Lorazepam (Ativan) 2 mg PO Q12 PRN PRN Reason: Anxiety Last Admin: 01/01/18 17:00 Dose: 2 mg Montelukast Sodium (Singulair) 10 mg PO HS [facility] Last Admin: 01/01/18 21:48 Dose: 10 mg Morphine Sulfate (Morphine) 2 mg IVP Q4 PRN PRN Reason: Pain, moderate (4-7) Last Admin: 01/02/18 16:06 Dose: 2 mg Pantoprazole Sodium (Protonix Ec Tab) 20 mg PO DAILY [facility] Last Admin: 01/02/18 09:39 Dose: 20 mg Prednisone (Prednisone Tab) 20 mg PO DAILY [facility] Last Admin: 01/02/18 09:39 Dose: 20 mg Promethazine HCl/Codeine (Phenergan/Codeine Oral Syrup) 5 ml PO Q4 PRN PRN Reason: Cough and congestion Last Admin: 01/01/18 00:27 Dose: 5 ml Quetiapine Fumarate (Seroquel Xr) 400 mg PO Q12 [facility] Last Admin: 01/02/18 10:54 Dose: 400 mg Sertraline HCl (Zoloft) 100 mg PO BID [facility] Last Admin: 01/02/18 17:16 Dose: 100 mg - Labs Labs: 01/01/18 13:48 01/01/18 13:48 PT 10.9 SECONDS (9.7-12.2) 12/28/17 17:46 INR 1.0 12/28/17 17:46 APTT 36 SECONDS (21-34) H 12/28/17 17:46 - Head Exam Head Exam: ATRAUMATIC, NORMOCEPHALIC - ENT Exam ENT Exam: Mucous Membranes Moist - Respiratory Exam Respiratory Exam: Rhonchi, Wheezes - Cardiovascular Exam Cardiovascular Exam: REGULAR RHYTHM - GI/Abdominal Exam GI & Abdominal Exam: Soft Assessment and Plan (1) Tracheobronchitis Assessment & Plan: Continue IV antibiotics Follow-up culture and sensitivity Nebulizer treatment Steroids and pulmonary toilet Status: Acute (2) COPD exacerbation Status: Acute (3) Tracheostomy dependence Status: Acute
--- NOTE | 2018-01-02 21:19 | CP.PCM.PN ---
Subjective - Subjective Subjective: dictated Objective - Vital Signs/Intake and Output Vital Signs (last 24 hours): Temp Pulse Resp BP Pulse Ox 98.7 F 88 20 116/64 95 01/02/18 16:07 01/02/18 16:30 01/02/18 16:07 01/02/18 16:07 01/02/18 16:07 - Medications Medications: Current Medications Acetaminophen (Tylenol 325mg Tab) 650 mg PO Q6 PRN PRN Reason: fever Acetylcysteine (Acetylcysteine 20%) 4 ml INH RQ4 [facility] Last Admin: 01/02/18 19:30 Dose: 4 ml Albuterol/Ipratropium (Duoneb 3 Mg/0.5 Mg (3 Ml) Ud) 3 ml INH RQ4 [facility] Last Admin: 01/02/18 19:30 Dose: 3 ml Enoxaparin Sodium (Lovenox) 40 mg SC DAILY [facility] Last Admin: 01/02/18 09:42 Dose: 40 mg Gabapentin (Neurontin) 800 mg PO TID [facility] Last Admin: 01/02/18 17:16 Dose: 800 mg Meropenem 1 gm/ Sodium (Chloride) 100 mls @ 100 mls/hr IVPB Q8H [facility]; Protocol Last Admin: 01/02/18 16:05 Dose: 100 mls/hr Insulin Aspart (Novolog) 0 unit SC [facility]; Protocol Last Admin: 01/02/18 17:16 Dose: 3 units Insulin Glargine (Lantus) 17 unit SC HS [facility] Lorazepam (Ativan) 2 mg PO Q12 PRN PRN Reason: Anxiety Last Admin: 01/01/18 17:00 Dose: 2 mg Montelukast Sodium (Singulair) 10 mg PO HS [facility] Last Admin: 01/01/18 21:48 Dose: 10 mg Morphine Sulfate (Morphine) 2 mg IVP Q4 PRN PRN Reason: Pain, moderate (4-7) Last Admin: 01/02/18 16:06 Dose: 2 mg Pantoprazole Sodium (Protonix Ec Tab) 20 mg PO DAILY [facility] Last Admin: 01/02/18 09:39 Dose: 20 mg Prednisone (Prednisone Tab) 20 mg PO DAILY [facility] Last Admin: 01/02/18 09:39 Dose: 20 mg Promethazine HCl/Codeine (Phenergan/Codeine Oral Syrup) 5 ml PO Q4 PRN PRN Reason: Cough and congestion Last Admin: 01/01/18 00:27 Dose: 5 ml Quetiapine Fumarate (Seroquel Xr) 400 mg PO Q12 [facility] Last Admin: 01/02/18 10:54 Dose: 400 mg Sertraline HCl (Zoloft) 100 mg PO BID [facility] Last Admin: 01/02/18 17:16 Dose: 100 mg - Labs Labs: 01/01/18 13:48 01/01/18 13:48 PT 10.9 SECONDS (9.7-12.2) 12/28/17 17:46 INR 1.0 12/28/17 17:46 APTT 36 SECONDS (21-34) H 12/28/17 17:46 Assessment and Plan (1) Asthma exacerbation Status: Acute (2) Tracheostomy complication Status: Chronic (3) Bipolar disorder Status: Chronic (4) Diabetes mellitus Status: Chronic
[2018-01-03] MEDS: Acetylcysteine 20% Inhal Soln (4ml) INH SCH ×5 (00:40→20:12)
[2018-01-03] MEDS: Albuterol-Ipratrop 3 mg / 0.5 (3 ml) UD INH SCH ×5 (00:40→20:12)
--- NOTE | 2018-01-03 02:36 | PN ---
DATE: 01/02/2018 SUBJECTIVE: She is depressed. She is on one-to-one watch because of suicidal intention; however, the patient denies any suicidal ideation. She has cough. She has decreased tracheal secretion. No nausea or vomiting. No chest pain. PHYSICAL EXAMINATION: VITAL SIGNS: BP 116/64, pulse 90, respiratory rate 20, temperature 98.7. LUNGS: Bilateral decreased air entry. Positive inspiratory and expiratory rhonchi. CARDIOVASCULAR SYSTEM: S1 and S2, regular. ABDOMEN: Soft. ASSESSMENT: 1. Tracheobronchitis due to Proteus mirabilis as per culture from the half-way, on Merrem. 2. Urinary tract infection, on Merrem. 3. Type 2 diabetes. 4. Hypertension. 5. Depression. PLAN: Psych followup. Monitor the patient. Ad Khan MD
[2018-01-03] MEDS: (Novolog) Insulin Aspart, Recombinant 100 u/ml 10 ml vial SC SCH ×4 (08:29→21:20)
[2018-01-03] MEDS: Meropenem 1 GM in Sodium Chloride 0.9% 100 ML IVPB SCH ×2 (08:40→16:20)
[2018-01-03] MEDS: Enoxaparin 40 mg Syringe SC SCH (10:32)
[2018-01-03] MEDS: Pantoprazole 20 mg EC Tab PO SCH (10:32)
[2018-01-03] MEDS: QUEtiapine 200 mg XR Tab PO SCH ×2 (10:32→21:56)
[2018-01-03] MEDS: Promethazine/Cod 6.25mg-10mg/5ml Syr UD PO PRN (11:22)
--- NOTE | 2018-01-03 17:28 | CP.PCM.PN ---
Subjective - Date & Time of Evaluation Date of Evaluation: 01/03/18 Time of Evaluation: 08:45 - Subjective Subjective: Patient seen and examined at bedside, sitting down comfortably. Afebrile and in no acute distress. Cough is improving, but still has copious secretions. Still admits to diffuse neck pain which worsens with cough. Denies chest pain, fever, shortness of breath. -CXR (01/01): moderate pulmonary venous congestion; patchy infiltrates involving the inferior right upper and bilateral lower lobes; tracheostomy tube; cardiomegly. -Sputum culture (01/02): normal oral susu Objective - Vital Signs/Intake and Output Vital Signs (last 24 hours): Temp Pulse Resp BP Pulse Ox 98.6 F 77 20 119/78 92 L 01/03/18 16:00 01/03/18 16:00 01/03/18 16:00 01/03/18 16:00 01/03/18 16:00 Intake and Output: 01/03/18 01/03/18 06:59 18:59 Intake Total 580 Balance 580 - Medications Medications: Current Medications Acetaminophen (Tylenol 325mg Tab) 650 mg PO Q6 PRN PRN Reason: fever Acetylcysteine (Acetylcysteine 20%) 4 ml INH RQ4 [facility] Last Admin: 01/03/18 15:49 Dose: 4 ml Albuterol/Ipratropium (Duoneb 3 Mg/0.5 Mg (3 Ml) Ud) 3 ml INH RQ4 [facility] Last Admin: 01/03/18 15:49 Dose: 3 ml Enoxaparin Sodium (Lovenox) 40 mg SC DAILY [facility] Last Admin: 01/03/18 10:32 Dose: 40 mg Gabapentin (Neurontin) 800 mg PO TID [facility] Last Admin: 01/03/18 13:21 Dose: 800 mg Meropenem 1 gm/ Sodium (Chloride) 100 mls @ 100 mls/hr IVPB Q8H [facility]; Protocol Last Admin: 01/03/18 16:20 Dose: 100 mls/hr Insulin Aspart (Novolog) 0 unit SC ACHS [facility]; Protocol Last Admin: 01/03/18 16:43 Dose: 10 units Insulin Glargine (Lantus) 17 unit SC HS [facility] Lorazepam (Ativan) 2 mg PO Q12 PRN PRN Reason: Anxiety Last Admin: 01/03/18 02:59 Dose: 2 mg Montelukast Sodium (Singulair) 10 mg PO HS [facility] Last Admin: 01/02/18 21:32 Dose: 10 mg Morphine Sulfate (Morphine) 2 mg IVP Q4 PRN PRN Reason: Pain, moderate (4-7) Last Admin: 01/03/18 16:43 Dose: 2 mg Pantoprazole Sodium (Protonix Ec Tab) 20 mg PO DAILY [facility] Last Admin: 01/03/18 10:32 Dose: 20 mg Prednisone (Prednisone Tab) 20 mg PO DAILY [facility] Last Admin: 01/03/18 10:32 Dose: 20 mg Promethazine HCl/Codeine (Phenergan/Codeine Oral Syrup) 5 ml PO Q4 PRN PRN Reason: Cough and congestion Last Admin: 01/03/18 11:22 Dose: 5 ml Quetiapine Fumarate (Seroquel Xr) 400 mg PO Q12 [facility] Last Admin: 01/03/18 10:32 Dose: 400 mg Sertraline HCl (Zoloft) 100 mg PO BID [facility] Last Admin: 01/03/18 10:32 Dose: 100 mg - Labs Labs: 01/01/18 13:48 01/01/18 13:48 PT 10.9 SECONDS (9.7-12.2) 12/28/17 17:46 INR 1.0 12/28/17 17:46 APTT 36 SECONDS (21-34) H 12/28/17 17:46 - Head Exam Head Exam: ATRAUMATIC, NORMOCEPHALIC - Respiratory Exam Respiratory Exam: Rales, Rhonchi, Wheezes Assessment and Plan (1) Tracheobronchitis Assessment & Plan: continue antibiotics Steroids neb treatment Tracheostomy care Status: Acute (2) COPD exacerbation Status: Acute (3) Tracheostomy dependence Status: Acute
[2018-01-03] MEDS: (Lantus) Insulin Glargine, Recombinant SC SCH (21:57)
[2018-01-04] MEDS: Acetylcysteine 20% Inhal Soln (4ml) INH SCH ×6 (00:15→19:16)
[2018-01-04] MEDS: Albuterol-Ipratrop 3 mg / 0.5 (3 ml) UD INH SCH ×6 (00:15→19:16)
[2018-01-04] MEDS: Meropenem 1 GM in Sodium Chloride 0.9% 100 ML IVPB SCH ×4 (00:28→23:52)
--- NOTE | 2018-01-04 01:48 | PN ---
DATE: 01/03/2018 SUBJECTIVE: Carin Moser is less congested, less cough, less shortness of breath. No nausea or vomiting. PHYSICAL EXAMINATION: VITAL SIGNS: Blood pressure 119/78, pulse 77, respiratory rate 20, and temperature 98.6. LUNGS: Bilateral inspiratory and expiratory rhonchi. Bilateral rales. CARDIOVASCULAR SYSTEM: S1 and S2 are regular. ABDOMEN: Soft. ASSESSMENT: 1. Tracheobronchitis. 2. Bronchial asthma exacerbation. 3. Urinary tract infection. 4. Hypertension. 5. Diabetes. PLAN: Continue current medications, nebulizer, antibiotics. Monitor the patient. Ad Khan MD
[2018-01-04 07:56] LABS: BASO % 0.2 % (0.0-2.0); EOS # 0.2 K/uL (0.0-0.7); EOS % 1.7 % (0.0-4.0); HEMOGLOBIN 11.1 g/dL (11.0-16.0); LYMPH # 2.5 K/uL (1.0-4.3); LYMPH % 23.1 % (20.0-40.0); MEAN CELL VOLUME 77.9 fL (81.0-99.0); MEAN CORPUSCULAR HEMOGLOBIN 25.6 pg (27.0-31.0); MEAN CORPUSCULAR HGB CONC 32.8 g/dL (33.0-37.0); MEAN PLATELET VOLUME 7.7 fL (7.2-11.7); MONO # 0.7 K/uL (0.0-0.8); MONO % 6.6 % (0.0-10.0); NEUT # 7.3 K/uL (1.8-7.0); NEUT % 68.4 % (50.0-75.0); NRBC % 0.1 % (0.0-2.0); RBC 4.34 Mil/uL (3.80-5.20); RED CELL DISTRIBUTION WIDTH 17.9 % (11.5-14.5); WHITE BLOOD COUNT 10.7 K/uL (4.8-10.8)
[2018-01-04 08:15] LABS: ALB/GLOB RATIO 1.1 (1.0-2.1); ALBUMIN 3.6 g/dL (3.5-5.0); ALT/SGPT 18 U/L (9-52); AST/SGOT 20 U/L (14-36); BLOOD UREA NITROGEN 20 mg/dL (7-17); CALCIUM 9.1 mg/dl (8.6-10.4); GFR NON-AFRICAN AMERICAN > 60
[2018-01-04] MEDS: Enoxaparin 40 mg Syringe SC SCH (09:48)
[2018-01-04] MEDS: Pantoprazole 20 mg EC Tab PO SCH (09:48)
[2018-01-04] MEDS: (Novolog) Insulin Aspart, Recombinant 100 u/ml 10 ml vial SC SCH ×4 (09:49→22:04)
[2018-01-04] MEDS: QUEtiapine 200 mg XR Tab PO SCH ×2 (09:49→21:55)
--- NOTE | 2018-01-04 19:57 | CP.PCM.PN ---
Subjective - Date & Time of Evaluation Date of Evaluation: 01/04/18 Time of Evaluation: 08:00 - Subjective Subjective: tolerating merrem no adverse evants Objective - Vital Signs/Intake and Output Vital Signs (last 24 hours): Temp Pulse Resp BP Pulse Ox 98.8 F 79 20 152/83 H 95 01/04/18 16:41 01/04/18 16:41 01/04/18 16:41 01/04/18 16:41 01/04/18 16:41 - Medications Medications: Current Medications Acetaminophen (Tylenol 325mg Tab) 650 mg PO Q6 PRN PRN Reason: fever Acetylcysteine (Acetylcysteine 20%) 4 ml INH RQ4 [facility] Last Admin: 01/04/18 19:16 Dose: 4 ml Albuterol/Ipratropium (Duoneb 3 Mg/0.5 Mg (3 Ml) Ud) 3 ml INH RQ4 [facility] Last Admin: 01/04/18 19:16 Dose: 3 ml Enoxaparin Sodium (Lovenox) 40 mg SC DAILY [facility]S [facility] Last Admin: 01/04/18 09:48 Dose: 40 mg Gabapentin (Neurontin) 800 mg PO TID [facility] 234 B[facility]S AT [facility] Last Admin: 01/04/18 17:26 Dose: 800 mg Meropenem 1 gm/ Sodium (Chloride) 100 mls @ 100 mls/hr IVPB Q8H [facility] 234 BEDS AT [facility]; Protocol Last Admin: 01/04/18 16:30 Dose: 100 mls/hr Insulin Aspart (Novolog) 0 unit SC ACHS [facility] 234 BEDS AT [facility]; Protocol Last Admin: 01/04/18 17:26 Dose: 6 units Insulin Glargine (Lantus) 17 unit SC [facility] Last Admin: 01/03/18 21:57 Dose: 17 units Lorazepam (Ativan) 2 mg PO Q12 PRN PRN Reason: Anxiety Last Admin: 01/03/18 02:59 Dose: 2 mg Montelukast Sodium (Singulair) 10 mg PO HS [facility] 234 BEDS AT [facility] Last Admin: 01/03/18 21:56 Dose: 10 mg Morphine Sulfate (Morphine) 2 mg IVP Q4 PRN PRN Reason: Pain, moderate (4-7) Last Admin: 01/04/18 12:11 Dose: 2 mg Pantoprazole Sodium (Protonix Ec Tab) 20 mg PO DAILY [facility] 234 BEDS AT [facility] Last Admin: 01/04/18 09:48 Dose: 20 mg Prednisone (Prednisone Tab) 20 mg PO DAILY [facility] 234 BEDS AT [facility] Last Admin: 01/04/18 09:48 Dose: 20 mg Promethazine HCl/Codeine (Phenergan/Codeine Oral Syrup) 5 ml PO Q4 PRN PRN Reason: Cough and congestion Last Admin: 01/03/18 11:22 Dose: 5 ml Quetiapine Fumarate (Seroquel Xr) 400 mg PO Q12 [facility] 234 BEDS AT [facility] Last Admin: 01/04/18 09:49 Dose: 400 mg Sertraline HCl (Zoloft) 100 mg PO BID [facility] 234 BEDS AT [facility] Last Admin: 01/04/18 17:31 Dose: 100 mg - Labs Labs: 01/04/18 07:36 01/04/18 07:36 PT 10.9 SECONDS (9.7-12.2) 12/28/17 17:46 INR 1.0 12/28/17 17:46 APTT 36 SECONDS (21-34) H 12/28/17 17:46 Assessment and Plan (1) COPD exacerbation Status: Acute
[2018-01-04] MEDS: (Lantus) Insulin Glargine, Recombinant SC SCH (21:55)
--- NOTE | 2018-01-04 21:57 | CP.PCM.PN ---
Subjective - Date & Time of Evaluation Date of Evaluation: 01/03/18 - Subjective Subjective: dictated Objective - Vital Signs/Intake and Output Vital Signs (last 24 hours): Temp Pulse Resp BP Pulse Ox 98.8 F 79 20 152/83 H 95 01/04/18 16:41 01/04/18 16:41 01/04/18 16:41 01/04/18 16:41 01/04/18 16:41 - Medications Medications: Current Medications Acetaminophen (Tylenol 325mg Tab) 650 mg PO Q6 PRN PRN Reason: fever Acetylcysteine (Acetylcysteine 20%) 4 ml INH RQ4 [facility] Last Admin: 01/04/18 19:16 Dose: 4 ml Albuterol/Ipratropium (Duoneb 3 Mg/0.5 Mg (3 Ml) Ud) 3 ml INH RQ4 [facility] Last Admin: 01/04/18 19:16 Dose: 3 ml Enoxaparin Sodium (Lovenox) 40 mg SC DAILY [facility] Last Admin: 01/04/18 09:48 Dose: 40 mg Gabapentin (Neurontin) 800 mg PO TID [facility] Last Admin: 01/04/18 17:26 Dose: 800 mg Meropenem 1 gm/ Sodium (Chloride) 100 mls @ 100 mls/hr IVPB Q8H [facility]; Protocol Last Admin: 01/04/18 16:30 Dose: 100 mls/hr Insulin Aspart (Novolog) 0 unit SC ACHS [facility]; Protocol Last Admin: 01/04/18 17:26 Dose: 6 units Insulin Glargine (Lantus) 17 unit SC HS [facility] Last Admin: 01/04/18 21:55 Dose: 17 units Lorazepam (Ativan) 2 mg PO Q12 PRN PRN Reason: Anxiety Last Admin: 01/03/18 02:59 Dose: 2 mg Montelukast Sodium (Singulair) 10 mg PO HS [facility] Last Admin: 01/04/18 21:55 Dose: 10 mg Morphine Sulfate (Morphine) 2 mg IVP Q4 PRN PRN Reason: Pain, moderate (4-7) Last Admin: 01/04/18 20:13 Dose: 2 mg Pantoprazole Sodium (Protonix Ec Tab) 20 mg PO DAILY [facility] Last Admin: 01/04/18 09:48 Dose: 20 mg Prednisone (Prednisone Tab) 20 mg PO DAILY [facility] Last Admin: 01/04/18 09:48 Dose: 20 mg Promethazine HCl/Codeine (Phenergan/Codeine Oral Syrup) 5 ml PO Q4 PRN PRN Reason: Cough and congestion Last Admin: 01/03/18 11:22 Dose: 5 ml Quetiapine Fumarate (Seroquel Xr) 400 mg PO Q12 [facility] Last Admin: 01/04/18 21:55 Dose: 400 mg Sertraline HCl (Zoloft) 100 mg PO BID [facility] Last Admin: 01/04/18 17:31 Dose: 100 mg - Labs Labs: 01/04/18 07:36 01/04/18 07:36 PT 10.9 SECONDS (9.7-12.2) 12/28/17 17:46 INR 1.0 12/28/17 17:46 APTT 36 SECONDS (21-34) H 12/28/17 17:46 Assessment and Plan (1) Asthma exacerbation Status: Acute (2) Tracheostomy complication Status: Chronic (3) Bipolar disorder Status: Chronic (4) Diabetes mellitus Status: Chronic
--- NOTE | 2018-01-04 21:58 | CP.PCM.PN ---
Subjective - Subjective Subjective: dictated Objective - Vital Signs/Intake and Output Vital Signs (last 24 hours): Temp Pulse Resp BP Pulse Ox 98.8 F 79 20 152/83 H 95 01/04/18 16:41 01/04/18 16:41 01/04/18 16:41 01/04/18 16:41 01/04/18 16:41 - Medications Medications: Current Medications Acetaminophen (Tylenol 325mg Tab) 650 mg PO Q6 PRN PRN Reason: fever Acetylcysteine (Acetylcysteine 20%) 4 ml INH RQ4 [facility] Last Admin: 01/04/18 19:16 Dose: 4 ml Albuterol/Ipratropium (Duoneb 3 Mg/0.5 Mg (3 Ml) Ud) 3 ml INH RQ4 [facility] Last Admin: 01/04/18 19:16 Dose: 3 ml Enoxaparin Sodium (Lovenox) 40 mg SC DAILY [facility] Last Admin: 01/04/18 09:48 Dose: 40 mg Gabapentin (Neurontin) 800 mg PO TID [facility] Last Admin: 01/04/18 17:26 Dose: 800 mg Meropenem 1 gm/ Sodium (Chloride) 100 mls @ 100 mls/hr IVPB Q8H [facility]; Protocol Last Admin: 01/04/18 16:30 Dose: 100 mls/hr Insulin Aspart (Novolog) 0 unit SC [facility]; Protocol Last Admin: 01/04/18 17:26 Dose: 6 units Insulin Glargine (Lantus) 17 unit SC HS [facility] Last Admin: 01/04/18 21:55 Dose: 17 units Lorazepam (Ativan) 2 mg PO Q12 PRN PRN Reason: Anxiety Last Admin: 01/03/18 02:59 Dose: 2 mg Montelukast Sodium (Singulair) 10 mg PO HS [facility] Last Admin: 01/04/18 21:55 Dose: 10 mg Morphine Sulfate (Morphine) 2 mg IVP Q4 PRN PRN Reason: Pain, moderate (4-7) Last Admin: 01/04/18 20:13 Dose: 2 mg Pantoprazole Sodium (Protonix Ec Tab) 20 mg PO DAILY [facility] Last Admin: 01/04/18 09:48 Dose: 20 mg Prednisone (Prednisone Tab) 20 mg PO DAILY [facility] Last Admin: 01/04/18 09:48 Dose: 20 mg Promethazine HCl/Codeine (Phenergan/Codeine Oral Syrup) 5 ml PO Q4 PRN PRN Reason: Cough and congestion Last Admin: 01/03/18 11:22 Dose: 5 ml Quetiapine Fumarate (Seroquel Xr) 400 mg PO Q12 [facility] Last Admin: 01/04/18 21:55 Dose: 400 mg Sertraline HCl (Zoloft) 100 mg PO BID [facility] Last Admin: 01/04/18 17:31 Dose: 100 mg - Labs Labs: 01/04/18 07:36 01/04/18 07:36 PT 10.9 SECONDS (9.7-12.2) 12/28/17 17:46 INR 1.0 12/28/17 17:46 APTT 36 SECONDS (21-34) H 12/28/17 17:46 Assessment and Plan (1) Asthma exacerbation Status: Acute (2) Tracheostomy complication Status: Chronic (3) Bipolar disorder Status: Chronic (4) Diabetes mellitus Status: Chronic
[2018-01-05] MEDS: Acetylcysteine 20% Inhal Soln (4ml) INH SCH ×6 (00:35→20:31)
--- NOTE | 2018-01-05 01:12 | PCM.PSYCH ---
Initial Psychiatric Evaluation - Initial Psychiatric Evaluation Type of Admission: Voluntary Legal Status: Capacity Chief Complaint (in patient's own words): i came here to get help.' History of Present Illness and Precipitating Events: Pt is a 62 year old female who is and with 3 children who are 36, 34, and 33 years old. Pt is living with her daughter who provides an income for her as well. Pt came to [facility] from her group home for evaluation of a fever. Today pt was consulted by psychiatry. Pt has a tracheostomy tube that is causing her to be a poor historian. Pt reports that she has an extensive history of psychiatric conditions. She was diagnosed with anxiety and depression many years ago. She was diagnosed with bipolar d/o around 5 years ago and schizophrenia over 10 years ago. Pt states that she sometimes see hallucinations which include black shadows. She hears people telling her that she is bad and to hurt herself. Pt has been hospitalized for so many times for her psychiatric conditions that she cannot recall how many times or the last time. Pt denies any suicidal or homicidal ideations herself. Pt denies any use of substances including tobacco, heroin, cocaine, or alcohol. Past medical history: Diabetes, hypertension, COPD, seizures, asthma, bronchitis, CHF, emphysema, gallbladder disease, pneumonia, sleep apnea Allergies: Aspirin, ceftriaxone sodium, ibuprofen, iodine, raspberry Surgical history: Cholecystectomy, Hysterectomy Legal history: Denies Family psychiatric history: 2 children with bipolar d/o and schizophrenia Psychiatric history: Anxiety, bipolar d/o, depression, schizophrenia Current Medications: Active Medications Generic Name Dose Route Start Last Admin Trade Name Freq PRN Reason Stop Dose Admin Acetaminophen 650 mg 12/28/17 22:07 Tylenol 325mg Tab PO Q6 PRN fever Acetylcysteine 4 ml 01/01/18 17:30 01/04/18 19:16 Acetylcysteine 20% INH 4 ml RQ4 [facility] Administration Albuterol/Ipratropium 3 ml 12/29/17 00:00 01/04/18 19:16 Duoneb 3 Mg/0.5 Mg (3 Ml) Ud INH 3 ml RQ4 [facility] Administration Enoxaparin Sodium 40 mg 12/29/17 10:00 01/04/18 09:48 Lovenox SC 40 mg DAILY [facility] Administration Gabapentin 800 mg 12/29/17 10:00 01/04/18 17:26 Neurontin PO 800 mg TID [facility] Administration Meropenem 1 gm/ Sodium 100 mls @ 100 mls/hr 12/31/17 16:00 01/04/18 23:52 Chloride IVPB 100 mls/hr Q8H [facility] Administration Protocol Insulin Aspart 0 unit 12/29/17 07:30 01/04/18 22:04 Novolog SC Not Given ACHS [facility] Protocol Insulin Glargine 17 unit 01/03/18 22:00 01/04/18 21:55 Lantus SC 17 units HS [facility] Administration Lorazepam 2 mg 01/01/18 17:45 01/03/18 02:59 Ativan PO 2 mg Q12 PRN Administration Anxiety Montelukast Sodium 10 mg 12/29/17 22:00 01/04/18 21:55 Singulair PO 10 mg HS [facility] Administration Morphine Sulfate 2 mg 12/31/17 18:33 01/05/18 00:31 Morphine IVP 2 mg Q4 PRN Administration Pain, moderate (4-7) Pantoprazole Sodium 20 mg 12/29/17 10:00 01/04/18 09:48 Protonix Ec Tab PO 20 mg DAILY [facility] Administration Prednisone 20 mg 12/30/17 16:15 01/04/18 09:48 Prednisone Tab PO 20 mg DAILY [facility] Administration Promethazine HCl/Codeine 5 ml 12/29/17 14:56 01/03/18 11:22 Phenergan/Codeine Oral Syrup PO 5 ml Q4 PRN Administration Cough and congestion Quetiapine Fumarate 400 mg 12/29/17 10:00 01/04/18 21:55 Seroquel Xr PO 400 mg Q12 [facility] Administration Sertraline HCl 100 mg 12/29/17 10:00 01/04/18 17:31 Zoloft PO 100 mg BID [facility] Administration Past Psychiatric History - Past Psychiatric History Previous Treatment History: Inpatient Pertinent Medical Hx (Current Medical&Sleep Prob, Allergies): Allergies Allergy/AdvReac Type Severity Reaction Status Date / Time aspirin Allergy ANAPHYLAXIS Verified 11/29/17 23:33 ceftriaxone sodium Allergy ANAPHYLAXIS Verified 11/29/17 23:33 [From Rocephin] ibuprofen [From Motrin] Allergy ANAPHYLAXIS Verified 11/29/17 23:33 iodine Allergy ANAPHYLAXIS Verified 11/29/17 23:33 raspberry Allergy ANAPHYLAXIS Verified 10/04/18 23:33 Acetaminophen [Tylenol 325mg tab] 650 mg PO Q6H PRN tab 12/08/17 Albuterol/Ipratropium [Duoneb 3 mg/0.5 mg (3 ml) UD] 3 ml INH RQ4 neb 12/08/17 Gabapentin [Neurontin] 800 mg PO TID tab 12/08/17 Insulin Glargine, Recombina [Lantus] 17 unit SC AC unit 12/08/17 Insulin Human Regular [Novolin R] 0 unit SC ACHS unit 12/08/17 Montelukast [Singulair] 10 mg PO HS tab 12/08/17 Pantoprazole [Protonix EC Tab] 20 mg PO DAILY ect 12/08/17 Sertraline [Zoloft] 100 mg PO BID tab 12/08/17 guaiFENesin [Robitussin] 200 mg PO Q4H udc 12/08/17 traZODone [Desyrel] 150 mg PO HS tab 12/08/17 Benzonatate [Tessalon Perles] 100 mg PO BID 12/28/17 Guaifenesin [Guaifenesin ER] 600 mg PO TID 12/28/17 LORazepam [Ativan] 2 mg PO Q12H PRN 12/28/17 QUEtiapine [Seroquel XR] 400 mg PO Q12 12/28/17 Sulfamethoxazole/Trimethoprim [Bactrim DS 800 mg-160 mg] 1 tab PO Q12H 12/28/17 Tobramycin/Dexamethasone [TobraDex 0.3%-0.1% Opht Oint] 1 drop OU QID 12/28/17 oxyCODONE/Acetaminophen [Percocet 5/325 mg Tab] 1 tab PO Q4H PRN 12/28/17 Review of Systems - Review of Systems All systems: reviewed and no additional remarkable complaints except - Psychiatric Psychiatric: Anxiety, Irritability. absent: Suicidal Ideation Mental Status Examination - Personal Presentation Personal Presentation: Looks stated age - Affect Affect: Constricted, Depressed - Motor Activity Motor Activity: Calm - Reliability in Providing Information Reliability in Providing Information: Poor, due to alteration in thoughts, Poor, due to altered mood - Speech Speech: Organized - Mood Mood: Depressed, Anxious - Formal Thought Process Formal Thought Process: Loosening of associations - Hallucinations/Delusions Delusions: Persecution - Obsessions/Compulsions Obsessions: No Compulsions: No - Cognitive Functions Orientation: Person, Place, Situation, Time Sensorium: Alert Attention/Concentration: Attentive Abstract Thinking: [place] Estimate of Intelligence: Below average Judgement: Imparied, as evidence by: Poor judgement, Imparied, as evidence by: Lack of insight into illness - Risk Risk: Diminished functioning - Strength & Assets Inventory Strength & Assets Inventory: Family support DSM 5 DX - DSM 5 DSM 5 Diagnosis: Schizoaffective disorder Bipolar Type - Recommended/Plan of Treatment Treatment Recommendations and Plan of Treatment: Schizoaffective disorder Bipolar Type CBT Psycho education Pt psychiatrically stable and clear for discharge.
--- NOTE | 2018-01-05 02:39 | PN ---
DATE: 01/04/2018 SUBJECTIVE: Carin Moser has less cough, less wheezing, less sputum production. She is not suicidal. She is off one-to-one watch. No fever, no chills. PHYSICAL EXAMINATION: VITAL SIGNS: Blood pressure 152/83, pulse 79, respiratory rate 20, temperature 98.8. LUNGS: Bilateral scattered rales and rhonchi. Decreased air entry. CARDIOVASCULAR SYSTEM: S1, S2, regular. ABDOMEN: Soft, nontender. Bowel sounds are positive. ASSESSMENT: 1. Tracheobronchitis. 2. Bronchial asthma. 3. Type 2 diabetes. 4. Hypertension. PLAN: Antibiotics, respiratory suctioning, prednisone. Monitor the patient. Ad Khan MD
[2018-01-05] MEDS: (Novolog) Insulin Aspart, Recombinant 100 u/ml 10 ml vial SC SCH ×4 (07:40→21:48)
[2018-01-05] MEDS: Albuterol-Ipratrop 3 mg / 0.5 (3 ml) UD INH SCH ×4 (07:50→20:31)
[2018-01-05 08:16] LABS: BASO # 0.1 K/uL (0.0-0.2); BASO % 1.1 % (0.0-2.0); EOS # 0.1 K/uL (0.0-0.7); EOS % 1.3 % (0.0-4.0); HEMOGLOBIN 11.6 g/dL (11.0-16.0); LYMPH # 3.1 K/uL (1.0-4.3); LYMPH % 27.9 % (20.0-40.0); MEAN CELL VOLUME 77.8 fL (81.0-99.0); MEAN CORPUSCULAR HEMOGLOBIN 25.5 pg (27.0-31.0); MEAN CORPUSCULAR HGB CONC 32.7 g/dL (33.0-37.0); MEAN PLATELET VOLUME 7.7 fL (7.2-11.7); MONO # 0.7 K/uL (0.0-0.8); MONO % 6.8 % (0.0-10.0); NEUT % 62.9 % (50.0-75.0); NRBC % 0.1 % (0.0-2.0); RBC 4.57 Mil/uL (3.80-5.20); WHITE BLOOD COUNT 11.1 K/uL (4.8-10.8)
[2018-01-05 08:31] LABS: ALBUMIN 3.5 g/dL (3.5-5.0); ALT/SGPT 22 U/L (9-52); AST/SGOT 21 U/L (14-36); BLOOD UREA NITROGEN 24 mg/dL (7-17); CALCIUM 8.9 mg/dl (8.6-10.4); GFR NON-AFRICAN AMERICAN > 60
[2018-01-05] MEDS: Meropenem 1 GM in Sodium Chloride 0.9% 100 ML IVPB SCH ×2 (08:46→16:55)
--- NOTE | 2018-01-05 09:21 | CP.PCM.PN ---
Subjective - Date & Time of Evaluation Date of Evaluation: 01/05/18 - Subjective Subjective: Patient seen and examined at bedside. Patient has a trachestomy tube placed, and was resting comfortably. Afebrile and not in acute distress. Admits to cough with copious secretions, but states that it has been improving. Patient complains of diffuse neck pain which worsens with cough. Denies chest pain, fevers, chills, or shortness of breath. continue antibiotics per infectious disease Continue pulmonary toilet Continue steroids and nebulizer treatment Objective - Vital Signs/Intake and Output Vital Signs (last 24 hours): Temp Pulse Resp BP Pulse Ox 98.3 F 80 18 148/90 97 01/05/18 08:37 01/05/18 08:37 01/05/18 08:37 01/05/18 08:37 01/05/18 08:37 Intake and Output: 01/05/18 01/05/18 06:59 18:59 Intake Total 580 Balance 580 - Medications Medications: Current Medications Acetaminophen (Tylenol 325mg Tab) 650 mg PO Q6 PRN PRN Reason: fever Acetylcysteine (Acetylcysteine 20%) 4 ml INH RQ4 [facility] Last Admin: 01/05/18 04:20 Dose: 4 ml Albuterol/Ipratropium (Duoneb 3 Mg/0.5 Mg (3 Ml) Ud) 3 ml INH RQ4 [facility] Last Admin: 01/04/18 19:16 Dose: 3 ml Enoxaparin Sodium (Lovenox) 40 mg SC DAILY [facility] Last Admin: 01/04/18 09:48 Dose: 40 mg Gabapentin (Neurontin) 800 mg PO TID [facility] Last Admin: 01/04/18 17:26 Dose: 800 mg Meropenem 1 gm/ Sodium (Chloride) 100 mls @ 100 mls/hr IVPB Q8H [facility]; Protocol Last Admin: 01/04/18 23:52 Dose: 100 mls/hr Insulin Aspart (Novolog) 0 unit SC ACHS [facility]; Protocol Last Admin: 01/04/18 22:04 Dose: Not Given Insulin Glargine (Lantus) 17 unit SC HS [facility] Last Admin: 01/04/18 21:55 Dose: 17 units Lorazepam (Ativan) 2 mg PO Q12 PRN PRN Reason: Anxiety Last Admin: 01/03/18 02:59 Dose: 2 mg Montelukast Sodium (Singulair) 10 mg PO HS [facility] Last Admin: 01/04/18 21:55 Dose: 10 mg Morphine Sulfate (Morphine) 2 mg IVP Q4 PRN PRN Reason: Pain, moderate (4-7) Last Admin: 01/05/18 05:44 Dose: 2 mg Pantoprazole Sodium (Protonix Ec Tab) 20 mg PO DAILY [facility] Last Admin: 01/04/18 09:48 Dose: 20 mg Prednisone (Prednisone Tab) 20 mg PO DAILY [facility] Last Admin: 01/04/18 09:48 Dose: 20 mg Promethazine HCl/Codeine (Phenergan/Codeine Oral Syrup) 5 ml PO Q4 PRN PRN Reason: Cough and congestion Last Admin: 01/03/18 11:22 Dose: 5 ml Quetiapine Fumarate (Seroquel Xr) 400 mg PO Q12 [facility] Last Admin: 01/04/18 21:55 Dose: 400 mg Sertraline HCl (Zoloft) 100 mg PO BID [facility] Last Admin: 01/04/18 17:31 Dose: 100 mg - Labs Labs: 01/05/18 08:03 01/05/18 08:03 PT 10.9 SECONDS (9.7-12.2) 12/28/17 17:46 INR 1.0 12/28/17 17:46 APTT 36 SECONDS (21-34) H 12/28/17 17:46 Assessment and Plan (1) Tracheobronchitis Status: Acute (2) COPD exacerbation Status: Acute (3) Tracheostomy dependence Status: Acute
[2018-01-05] MEDS: Promethazine/Cod 6.25mg-10mg/5ml Syr UD PO PRN ×2 (09:38→21:54)
[2018-01-05] MEDS: Enoxaparin 40 mg Syringe SC SCH (09:38)
[2018-01-05] MEDS: Pantoprazole 20 mg EC Tab PO SCH (09:38)
[2018-01-05] MEDS: QUEtiapine 200 mg XR Tab PO SCH ×2 (09:38→21:54)
--- NOTE | 2018-01-05 19:22 | CP.PCM.PN ---
Subjective - Subjective Subjective: dictated Objective - Vital Signs/Intake and Output Vital Signs (last 24 hours): Temp Pulse Resp BP Pulse Ox 98.3 F 80 18 148/90 97 01/05/18 08:37 01/05/18 08:37 01/05/18 08:37 01/05/18 08:37 01/05/18 08:37 - Medications Medications: Current Medications Acetaminophen (Tylenol 325mg Tab) 650 mg PO Q6 PRN PRN Reason: fever Acetylcysteine (Acetylcysteine 20%) 4 ml INH RQ4 [facility] Last Admin: 01/05/18 16:12 Dose: 4 ml Albuterol/Ipratropium (Duoneb 3 Mg/0.5 Mg (3 Ml) Ud) 3 ml INH RQ4 [facility] Last Admin: 01/05/18 16:11 Dose: 3 ml Enoxaparin Sodium (Lovenox) 40 mg SC DAILY [facility] Last Admin: 01/05/18 09:38 Dose: 40 mg Gabapentin (Neurontin) 800 mg PO TID [facility] Last Admin: 01/05/18 17:23 Dose: 800 mg Meropenem 1 gm/ Sodium (Chloride) 100 mls @ 100 mls/hr IVPB Q8H [facility]; Protocol Last Admin: 01/05/18 16:55 Dose: 100 mls/hr Insulin Aspart (Novolog) [address] [facility]; Protocol Last Admin: 01/05/18 17:18 Dose: 8 units Insulin Glargine (Lantus) 17 unit SC HS [facility] Last Admin: 01/04/18 21:55 Dose: 17 units Lorazepam (Ativan) 2 mg PO Q12 PRN PRN Reason: Anxiety Last Admin: 01/03/18 02:59 Dose: 2 mg Montelukast Sodium (Singulair) 10 mg PO HS [facility] Last Admin: 01/04/18 21:55 Dose: 10 mg Morphine Sulfate (Morphine) 2 mg IVP Q4 PRN PRN Reason: Pain, moderate (4-7) Last Admin: 01/05/18 13:11 Dose: 2 mg Pantoprazole Sodium (Protonix Ec Tab) 20 mg PO DAILY [facility] Last Admin: 01/05/18 09:38 Dose: 20 mg Prednisone (Prednisone Tab) 20 mg PO DAILY [facility] Last Admin: 01/05/18 09:38 Dose: 20 mg Promethazine HCl/Codeine (Phenergan/Codeine Oral Syrup) 5 ml PO Q4 PRN PRN Reason: Cough and congestion Last Admin: 01/05/18 09:38 Dose: 5 ml Quetiapine Fumarate (Seroquel Xr) 400 mg PO Q12 [facility] Last Admin: 01/05/18 09:38 Dose: 400 mg Sertraline HCl (Zoloft) 100 mg PO BID [facility] Last Admin: 01/05/18 17:21 Dose: 100 mg - Labs Labs: 01/05/18 08:03 01/05/18 08:03 PT 10.9 SECONDS (9.7-12.2) 12/28/17 17:46 INR 1.0 12/28/17 17:46 APTT 36 SECONDS (21-34) H 12/28/17 17:46 Assessment and Plan (1) Asthma exacerbation Status: Acute (2) Tracheostomy complication Status: Chronic (3) Bipolar disorder Status: Chronic (4) Diabetes mellitus Status: Chronic
[2018-01-05 21:19] VITALS: RESP 20
[2018-01-05] MEDS: (Lantus) Insulin Glargine, Recombinant SC SCH (21:54)
[2018-01-06] MEDS: Acetylcysteine 20% Inhal Soln (4ml) INH SCH ×6 (00:10→23:12)
[2018-01-06] MEDS: Albuterol-Ipratrop 3 mg / 0.5 (3 ml) UD INH SCH ×6 (00:10→23:12)
--- NOTE | 2018-01-06 04:04 | PN ---
DATE: 01/05/2018 SUBJECTIVE: The patient, Carin Moser, is feeling better, less cough, less shortness of breath, less wheezing. No fever. She is on antibiotic. Decreased secretion. She is off one-to-one watch. PHYSICAL EXAMINATION: VITAL SIGNS: Blood pressure 138/71, pulse 75, respiratory rate 20, and temperature 98.4. LUNGS: Decreased air entry. Positive rhonchi. CARDIOVASCULAR SYSTEM: S1, S2, regular. ABDOMEN: Soft. ASSESSMENT: 1. Tracheobronchitis. Rule-out pneumonia. 2. Dehydration. 3. Type 2 diabetes. 4. Anxiety and depression. 5. Hypertension. PLAN: Medical management. Monitor the patient. Ad Khan MD
[2018-01-06] MEDS: (Novolog) Insulin Aspart, Recombinant 100 u/ml 10 ml vial SC SCH ×4 (08:13→21:19)
[2018-01-06] MEDS: Meropenem 1 GM in Sodium Chloride 0.9% 100 ML IVPB SCH ×4 (08:39→23:49)
[2018-01-06] MEDS: Promethazine/Cod 6.25mg-10mg/5ml Syr UD PO PRN ×2 (10:12→21:19)
[2018-01-06] MEDS: Pantoprazole 20 mg EC Tab PO SCH (10:12)
[2018-01-06] MEDS: Enoxaparin 40 mg Syringe SC SCH (10:13)
[2018-01-06] MEDS: QUEtiapine 200 mg XR Tab PO SCH ×2 (10:19→21:19)
--- NOTE | 2018-01-06 17:45 | CP.PCM.PN ---
Subjective - Date & Time of Evaluation Date of Evaluation: 01/06/18 Time of Evaluation: 09:00 - Subjective Subjective: afeb on iv rx Objective - Vital Signs/Intake and Output Vital Signs (last 24 hours): Temp Pulse Resp BP Pulse Ox 98.3 F 83 20 129/84 97 01/06/18 15:46 01/06/18 15:46 01/06/18 15:46 01/06/18 15:46 01/06/18 15:46 Intake and Output: 01/06/18 01/06/18 06:59 18:59 Intake Total 600 Balance 600 - Medications Medications: Current Medications Acetaminophen (Tylenol 325mg Tab) 650 mg PO Q6 PRN PRN Reason: fever Acetylcysteine (Acetylcysteine 20%) 4 ml INH RQ4 [facility] Last Admin: 01/06/18 15:47 Dose: 4 ml Albuterol/Ipratropium (Duoneb 3 Mg/0.5 Mg (3 Ml) Ud) 3 ml INH RQ4 [facility] Last Admin: 01/06/18 15:48 Dose: 3 ml Enoxaparin Sodium (Lovenox) 40 mg SC DAILY [facility] Last Admin: 01/06/18 10:13 Dose: 40 mg Gabapentin (Neurontin) 800 mg PO TID [facility] Last Admin: 01/06/18 17:08 Dose: 800 mg Meropenem 1 gm/ Sodium (Chloride) 100 mls @ 100 mls/hr IVPB Q8H [facility]; Protocol Last Admin: 01/06/18 16:45 Dose: 100 mls/hr Insulin Aspart (Novolog) 0 unit SC ACHS [facility]; Protocol Last Admin: 01/06/18 17:08 Dose: 3 units Insulin Glargine (Lantus) 17 unit SC HS [facility] Last Admin: 01/05/18 21:54 Dose: 17 units Lorazepam (Ativan) 2 mg PO Q12 PRN PRN Reason: Anxiety Last Admin: 01/03/18 02:59 Dose: 2 mg Montelukast Sodium (Singulair) 10 mg PO HS [facility] Last Admin: 01/05/18 21:54 Dose: 10 mg Morphine Sulfate (Morphine) 2 mg IVP Q4 PRN PRN Reason: Pain, moderate (4-7) Last Admin: 01/06/18 12:47 Dose: 2 mg Pantoprazole Sodium (Protonix Ec Tab) 20 mg PO DAILY [facility] Last Admin: 01/06/18 10:12 Dose: 20 mg Prednisone (Prednisone Tab) 20 mg PO DAILY [facility] Last Admin: 01/06/18 10:13 Dose: 20 mg Promethazine HCl/Codeine (Phenergan/Codeine Oral Syrup) 5 ml PO Q4 PRN PRN Reason: Cough and congestion Last Admin: 01/06/18 10:12 Dose: 5 ml Quetiapine Fumarate (Seroquel Xr) 400 mg PO Q12 [facility] Last Admin: 01/06/18 10:19 Dose: 400 mg Sertraline HCl (Zoloft) 100 mg PO BID [facility] Last Admin: 01/06/18 17:07 Dose: 100 mg - Labs Labs: 01/05/18 08:03 01/05/18 08:03 PT 10.9 SECONDS (9.7-12.2) 12/28/17 17:46 INR 1.0 12/28/17 17:46 APTT 36 SECONDS (21-34) H 12/28/17 17:46 - Constitutional Appears: Non-toxic, Chronically Ill - Head Exam Head Exam: NORMOCEPHALIC - Eye Exam Eye Exam: absent: Scleral icterus - ENT Exam ENT Exam: Normal External Ear Exam - Neck Exam Neck Exam: absent: Lymphadenopathy - Respiratory Exam Respiratory Exam: Decreased Breath Sounds - Cardiovascular Exam Cardiovascular Exam: REGULAR RHYTHM - GI/Abdominal Exam GI & Abdominal Exam: Distended - Rectal Exam Rectal Exam: Deferred Assessment and Plan (1) COPD exacerbation Status: Acute
[2018-01-06] MEDS: (Lantus) Insulin Glargine, Recombinant SC SCH (21:13)
--- NOTE | 2018-01-06 22:44 | CP.PCM.PN ---
Subjective - Subjective Subjective: dictated Objective - Vital Signs/Intake and Output Vital Signs (last 24 hours): Temp Pulse Resp BP Pulse Ox 98.3 F 83 20 129/84 97 01/06/18 15:46 01/06/18 15:46 01/06/18 15:46 01/06/18 15:46 01/06/18 15:46 - Medications Medications: Current Medications Acetaminophen (Tylenol 325mg Tab) 650 mg PO Q6 PRN PRN Reason: fever Acetylcysteine (Acetylcysteine 20%) 4 ml INH RQ4 [facility] Last Admin: 01/06/18 19:22 Dose: 4 ml Albuterol/Ipratropium (Duoneb 3 Mg/0.5 Mg (3 Ml) Ud) 3 ml INH RQ4 [facility] Last Admin: 01/06/18 19:23 Dose: 3 ml Enoxaparin Sodium (Lovenox) 40 mg SC DAILY [facility] Last Admin: 01/06/18 10:13 Dose: 40 mg Gabapentin (Neurontin) 800 mg PO TID [facility] Last Admin: 01/06/18 17:08 Dose: 800 mg Meropenem 1 gm/ Sodium (Chloride) 100 mls @ 100 mls/hr IVPB Q8H [facility]; Protocol Last Admin: 01/06/18 16:45 Dose: 100 mls/hr Insulin Aspart (Novolog) 0 unit SC ACHS [facility]; Protocol Last Admin: 01/06/18 21:19 Dose: Not Given Insulin Glargine (Lantus) 17 unit SC HS [facility] Last Admin: 01/06/18 21:13 Dose: 17 units Lorazepam (Ativan) 2 mg PO Q12 PRN PRN Reason: Anxiety Last Admin: 01/03/18 02:59 Dose: 2 mg Montelukast Sodium (Singulair) 10 mg PO HS [facility] Last Admin: 01/06/18 21:13 Dose: 10 mg Morphine Sulfate (Morphine) 2 mg IVP Q4 PRN PRN Reason: Pain, moderate (4-7) Last Admin: 01/06/18 21:13 Dose: 2 mg Pantoprazole Sodium (Protonix Ec Tab) 20 mg PO DAILY [facility] Last Admin: 01/06/18 10:12 Dose: 20 mg Prednisone (Prednisone Tab) 20 mg PO DAILY [facility] Last Admin: 01/06/18 10:13 Dose: 20 mg Promethazine HCl/Codeine (Phenergan/Codeine Oral Syrup) 5 ml PO Q4 PRN PRN Reason: Cough and congestion Last Admin: 01/06/18 21:19 Dose: 5 ml Quetiapine Fumarate (Seroquel Xr) 400 mg PO Q12 [facility] Last Admin: 01/06/18 21:19 Dose: 400 mg Sertraline HCl (Zoloft) 100 mg PO BID [facility] Last Admin: 01/06/18 17:07 Dose: 100 mg - Labs Labs: 01/05/18 08:03 01/05/18 08:03 PT 10.9 SECONDS (9.7-12.2) 12/28/17 17:46 INR 1.0 12/28/17 17:46 APTT 36 SECONDS (21-34) H 12/28/17 17:46 Assessment and Plan (1) Asthma exacerbation Status: Acute (2) Tracheostomy complication Status: Chronic (3) Bipolar disorder Status: Chronic (4) Diabetes mellitus Status: Chronic
--- NOTE | 2018-01-07 03:20 | PN ---
DATE: 01/06/2018 SUBJECTIVE: Ehsan is improving. She has less cough, less shortness of breath, less wheezing, decreased secretions from the tracheostomy. PHYSICAL EXAMINATION: VITAL SIGNS: BP 129/84, pulse 83, respiratory rate 20, and temperature 98.3. LUNGS: Bilaterally decreased air entry. Positive rhonchi. CARDIOVASCULAR SYSTEM: S1 and S2 are regular. ABDOMEN: Soft. ASSESSMENT: 1. Tracheobronchitis. 2. Diabetes. 3. Major depression. 4. Hypertension. 5. Bronchial asthma. PLAN: Solu-Medrol. Antibiotics. Oxygen. Suctioning. Ad Khan MD
[2018-01-07] MEDS: Acetylcysteine 20% Inhal Soln (4ml) INH SCH ×5 (03:42→20:31)
[2018-01-07] MEDS: Albuterol-Ipratrop 3 mg / 0.5 (3 ml) UD INH SCH ×5 (03:42→20:32)
[2018-01-07 08:06] VITALS: TEMP 98.2
--- NOTE | 2018-01-07 08:06 | CP.PCM.PN ---
Subjective - Date & Time of Evaluation Date of Evaluation: 01/07/18 Time of Evaluation: 06:40 - Subjective Subjective: patient seen and examined Patient states cough much improved Denies shortness of breath Afebrile Wants to go home Continue antibiotics Continue nebulizer Inhaled steroids Objective - Vital Signs/Intake and Output Vital Signs (last 24 hours): Temp Pulse Resp BP Pulse Ox 97.9 F 73 20 161/83 H 96 01/06/18 23:10 01/06/18 23:10 01/06/18 23:10 01/06/18 23:10 01/06/18 23:10 - Medications Medications: Current Medications Acetaminophen (Tylenol 325mg Tab) 650 mg PO Q6 PRN PRN Reason: fever Acetylcysteine (Acetylcysteine 20%) 4 ml INH RQ4 [facility] Last Admin: 01/07/18 03:42 Dose: 4 ml Albuterol/Ipratropium (Duoneb 3 Mg/0.5 Mg (3 Ml) Ud) 3 ml INH RQ4 [facility] Last Admin: 01/07/18 03:42 Dose: 3 ml Enoxaparin Sodium (Lovenox) 40 mg SC DAILY [facility] Last Admin: 01/06/18 10:13 Dose: 40 mg Gabapentin (Neurontin) 800 mg PO TID [facility] Last Admin: 01/06/18 17:08 Dose: 800 mg Meropenem 1 gm/ Sodium (Chloride) 100 mls @ 100 mls/hr IVPB Q8H [facility]; Protocol Last Admin: 01/06/18 23:49 Dose: 100 mls/hr Insulin Aspart (Novolog) 0 unit SC ACHS [facility]; Protocol Last Admin: 01/06/18 21:19 Dose: Not Given Insulin Glargine (Lantus) 17 unit SC HS [facility] Last Admin: 01/06/18 21:13 Dose: 17 units Lorazepam (Ativan) 2 mg PO Q12 PRN PRN Reason: Anxiety Last Admin: 01/03/18 02:59 Dose: 2 mg Montelukast Sodium (Singulair) 10 mg PO HS [facility] Last Admin: 01/06/18 21:13 Dose: 10 mg Morphine Sulfate (Morphine) 2 mg IVP Q4 PRN PRN Reason: Pain, moderate (4-7) Last Admin: 01/07/18 01:48 Dose: 2 mg Pantoprazole Sodium (Protonix Ec Tab) 20 mg PO DAILY [facility] Last Admin: 01/06/18 10:12 Dose: 20 mg Prednisone (Prednisone Tab) 20 mg PO DAILY [facility] Last Admin: 01/06/18 10:13 Dose: 20 mg Promethazine HCl/Codeine (Phenergan/Codeine Oral Syrup) 5 ml PO Q4 PRN PRN Reason: Cough and congestion Last Admin: 01/06/18 21:19 Dose: 5 ml Quetiapine Fumarate (Seroquel Xr) 400 mg PO Q12 [facility] Last Admin: 01/06/18 21:19 Dose: 400 mg Sertraline HCl (Zoloft) 100 mg PO BID [facility] Last Admin: 01/06/18 17:07 Dose: 100 mg - Labs Labs: 01/05/18 08:03 01/05/18 08:03 PT 10.9 SECONDS (9.7-12.2) 12/28/17 17:46 INR 1.0 12/28/17 17:46 APTT 36 SECONDS (21-34) H 12/28/17 17:46 Assessment and Plan (1) Tracheobronchitis Status: Acute (2) COPD exacerbation Status: Acute (3) Tracheostomy dependence Status: Acute
[2018-01-07] MEDS: (Novolog) Insulin Aspart, Recombinant 100 u/ml 10 ml vial SC SCH ×4 (09:05→22:03)
[2018-01-07] MEDS: Meropenem 1 GM in Sodium Chloride 0.9% 100 ML IVPB SCH ×2 (09:16→17:37)
[2018-01-07] MEDS: Pantoprazole 20 mg EC Tab PO SCH (09:45)
[2018-01-07] MEDS: QUEtiapine 200 mg XR Tab PO SCH (09:45)
[2018-01-07] MEDS: Enoxaparin 40 mg Syringe SC SCH (09:46)
[2018-01-07 16:25] VITALS: BP 125/64; PULSE 86; O2SAT 95
--- NOTE | 2018-01-07 16:29 | CP.PCM.PN ---
Subjective - Date & Time of Evaluation Date of Evaluation: 01/07/18 Time of Evaluation: 16:29 - Subjective Subjective: PATIENT SEEN AND EXAMINED AT THE BEDSIDE Objective - Vital Signs/Intake and Output Vital Signs (last 24 hours): Temp Pulse Resp BP Pulse Ox 98.2 F 86 20 125/64 95 01/07/18 16:00 01/07/18 16:00 01/07/18 16:00 01/07/18 16:00 01/07/18 16:00 Intake and Output: 01/07/18 01/07/18 06:59 18:59 Intake Total 500 Balance 500 - Medications Medications: Current Medications Acetaminophen (Tylenol 325mg Tab) 650 mg PO Q6 PRN PRN Reason: fever Acetylcysteine (Acetylcysteine 20%) 4 ml INH RQ4 [facility] Last Admin: 01/07/18 15:28 Dose: 4 ml Albuterol/Ipratropium (Duoneb 3 Mg/0.5 Mg (3 Ml) Ud) 3 ml INH RQ4 [facility] Last Admin: 01/07/18 15:29 Dose: 3 ml Enoxaparin Sodium (Lovenox) 40 mg SC DAILY [facility] Last Admin: 01/07/18 09:46 Dose: 40 mg Gabapentin (Neurontin) 800 mg PO TID [facility] Last Admin: 01/07/18 13:20 Dose: 800 mg Meropenem 1 gm/ Sodium (Chloride) 100 mls @ 100 mls/hr IVPB Q8H [facility]; Protocol Last Admin: 01/07/18 09:16 Dose: 100 mls/hr Insulin Aspart (Novolog) 0 unit SC ACHS [facility]; Protocol Last Admin: 01/07/18 11:45 Dose: 2 units Insulin Glargine (Lantus) 17 unit SC HS [facility] Last Admin: 01/06/18 21:13 Dose: 17 units Lorazepam (Ativan) 2 mg PO Q12 PRN PRN Reason: Anxiety Last Admin: 01/03/18 02:59 Dose: 2 mg Montelukast Sodium (Singulair) 10 mg PO HS [facility] Last Admin: 01/06/18 21:13 Dose: 10 mg Morphine Sulfate (Morphine) 2 mg IVP Q4 PRN PRN Reason: Pain, moderate (4-7) Last Admin: 01/07/18 09:47 Dose: 2 mg Pantoprazole Sodium (Protonix Ec Tab) 20 mg PO DAILY [facility] Last Admin: 01/07/18 09:45 Dose: 20 mg Prednisone (Prednisone Tab) 20 mg PO DAILY [facility] Last Admin: 01/07/18 09:45 Dose: 20 mg Promethazine HCl/Codeine (Phenergan/Codeine Oral Syrup) 5 ml PO Q4 PRN PRN Reason: Cough and congestion Last Admin: 01/06/18 21:19 Dose: 5 ml Quetiapine Fumarate (Seroquel Xr) 400 mg PO Q12 [facility] Last Admin: 01/07/18 09:45 Dose: 400 mg Sertraline HCl (Zoloft) 100 mg PO BID [facility] Last Admin: 01/07/18 09:45 Dose: 100 mg - Labs Labs: 01/05/18 08:03 01/05/18 08:03 PT 10.9 SECONDS (9.7-12.2) 12/28/17 17:46 INR 1.0 12/28/17 17:46 APTT 36 SECONDS (21-34) H 12/28/17 17:46 Assessment and Plan - Assessment and Plan (Free Text) Assessment: FOLLOW UP WITH DR HUGGINS IN HIS OFFICE ----CALL FOR APPOINTMENT FOLLOW UP WITH DR SINGLETON IN HIS OFFICE ----CALL FOR APPOINTMENT FOLLOW UP WITH DR ARIZA IN HIS OFFICE ----CALL FOR APPOINTMENT CONTINUE HOME MEDICATION ACTIVITY TOLERATED CALL DR HUGGINS OR GO TO THE EMERGENCY ROOM IF SYMPTOM RETURN OR WORSENING
[2018-01-07] MEDS: (Lantus) Insulin Glargine, Recombinant SC SCH (21:58)
--- NOTE | 2018-01-07 23:19 | CP.PCM.DIS ---
Provider - Provider Date of Admission: 12/28/17 18:29 Attending physician: Ad Khan MD Diagnosis - Discharge Diagnosis (1) Asthma exacerbation Status: Acute Priority: High (2) Tracheostomy complication Status: Chronic (3) Bipolar disorder Status: Chronic (4) Diabetes mellitus Status: Chronic Hospital Course - Lab Results Lab Results: Micro Results 12/28/17 17:49 Blood Blood Culture - Final NO GROWTH AFTER 5 DAYS 12/28/17 17:49 Blood Gram Stain - Final TEST NOT PERFORMED 12/28/17 17:49 Blood Blood Culture - Final NO GROWTH AFTER 5 DAYS 12/28/17 17:49 Blood Gram Stain - Final TEST NOT PERFORMED 12/31/17 19:22 Sputum Gram Stain - Final 12/31/17 19:22 Sputum Sputum Culture - Final NORMAL ORAL DYAN 12/28/17 07:30 Urine Urine Culture - Final Proteus Mirabilis Most Recent Lab Values WBC 11.1 K/uL (4.8-10.8) H 01/05/18 08:03 RBC 4.57 Mil/uL (3.80-5.20) 01/05/18 08:03 Hgb 11.6 g/dL (11.0-16.0) 01/05/18 08:03 Hct 35.6 % (34.0-47.0) 01/05/18 08:03 MCV 77.8 fL (81.0-99.0) L 01/05/18 08:03 MCH 25.5 pg (27.0-31.0) L 01/05/18 08:03 MCHC 32.7 g/dL (33.0-37.0) L 01/05/18 08:03 RDW 18.0 % (11.5-14.5) H 01/05/18 08:03 Plt Count 181 K/uL (130-400) 01/05/18 08:03 MPV 7.7 fL (7.2-11.7) 01/05/18 08:03 Neut % (Auto) 62.9 % (50.0-75.0) 01/05/18 08:03 Lymph % (Auto) 27.9 % (20.0-40.0) 01/05/18 08:03 [place] % (Auto) 6.8 % (0.0-10.0) 01/05/18 08:03 Eos % (Auto) 1.3 % (0.0-4.0) 01/05/18 08:03 Baso % (Auto) 1.1 % (0.0-2.0) 01/05/18 08:03 Neut # (Auto) 7.0 K/uL (1.8-7.0) 01/05/18 08:03 Lymph # (Auto) 3.1 K/uL (1.0-4.3) 01/05/18 08:03 [place] # (Auto) 0.7 K/uL (0.0-0.8) 01/05/18 08:03 Eos # (Auto) 0.1 K/uL (0.0-0.7) 01/05/18 08:03 Baso # (Auto) 0.1 K/uL (0.0-0.2) 01/05/18 08:03 Differential Comment 12/28/17 17:46 PT 10.9 SECONDS (9.7-12.2) 12/28/17 17:46 INR 1.0 12/28/17 17:46 APTT 36 SECONDS (21-34) H 12/28/17 17:46 Puncture Site Rba 01/01/18 17:50 pCO2 53 mm/Hg (35-45) H 01/01/18 17:50 pO2 75 mm/Hg (80-100) L 01/01/18 17:50 HCO3 28.1 mmol/L (21-28) H 01/01/18 17:50 ABG pH 7.37 (7.35-7.45) 01/01/18 17:50 ABG Total CO2 32.2 mmol/L (22-28) H 01/01/18 17:50 ABG O2 Saturation 97.2 % (95-98) 01/01/18 17:50 ABG Base Excess 4.2 mmol/L (-2.0-3.0) H 01/01/18 17:50 ABG Hemoglobin 12.0 g/dL (11.7-17.4) 01/01/18 17:50 ABG Carboxyhemoglobin 1.9 % (0.5-1.5) H 01/01/18 17:50 POC ABG HHb (Measured) 2.7 % (0.0-5.0) 01/01/18 17:50 ABG Methemoglobin 1.6 % (0.0-3.0) 01/01/18 17:50 Rob Test Pos 01/01/18 17:50 A-a O2 Difference 144.0 mm/Hg 01/01/18 17:50 Respiratory Index 1.9 01/01/18 17:50 Hgb O2 Saturation 93.8 % (95.0-98.0) L 01/01/18 17:50 Liter Flow 8.0 01/01/18 17:50 FiO2 40.0 % 01/01/18 17:50 Sodium 140 mmol/L (132-148) 01/05/18 08:03 Potassium 4.0 mmol/L (3.6-5.2) 01/05/18 08:03 Chloride 101 mmol/L (98-107) 01/05/18 08:03 Carbon Dioxide 33 mmol/L (22-30) H 01/05/18 08:03 Anion Gap 11 (10-20) 01/05/18 08:03 BUN 24 mg/dL (7-17) H 01/05/18 08:03 Creatinine 0.7 mg/dL (0.7-1.2) 01/05/18 08:03 Est GFR ( Amer) > 60 01/05/18 08:03 Est GFR (Non-Af Amer) > 60 01/05/18 08:03 POC Glucose (mg/dL) 212 mg/dL (65-110) H 01/07/18 21:19 Random Glucose 126 mg/dL (65-105) H 01/05/18 08:03 Calcium 8.9 mg/dl (8.6-10.4) 01/05/18 08:03 Magnesium 1.8 mg/dL (1.6-2.3) 12/28/17 17:46 Total Bilirubin 0.4 mg/dL (0.2-1.3) 01/05/18 08:03 AST 21 U/L (14-36) 01/05/18 08:03 ALT 22 U/L (9-52) 01/05/18 08:03 Alkaline Phosphatase 140 U/L (38-126) H 01/05/18 08:03 Troponin I < 0.0120 ng/mL (0.00-0.120) 12/28/17 17:46 NT-Pro-B Natriuret Pep 77.5 pg/mL (0-900) 12/28/17 17:46 Total Protein 7.1 g/dL (6.3-8.3) 01/05/18 08:03 Albumin 3.5 g/dL (3.5-5.0) 01/05/18 08:03 Globulin 3.5 gm/dL (2.2-3.9) 01/05/18 08:03 Albumin/Globulin Ratio 1.0 (1.0-2.1) 01/05/18 08:03 Urine Color Yellow (YELLOW) 12/29/17 14:55 Urine Clarity Clear (Clear) 12/29/17 14:55 Urine pH 7.0 (5.0-8.0) 12/29/17 14:55 Ur Specific [place] 1.022 (1.003-1.030) 12/29/17 14:55 Urine Protein Negative mg/dL (NEGATIVE) 12/29/17 14:55 Urine Glucose (UA) 3+ mg/dL (Normal) H 12/29/17 14:55 Urine Ketones Negative mg/dL (NEGATIVE) 12/29/17 14:55 Urine Blood Negative (NEGATIVE) 12/29/17 14:55 Urine Nitrate Negative (NEGATIVE) 12/29/17 14:55 Urine Bilirubin Negative (NEGATIVE) 12/29/17 14:55 Urine Urobilinogen Normal mg/dL (0.2-1.0) 12/29/17 14:55 Ur Leukocyte Esterase Neg Brian/uL (Negative) 12/29/17 14:55 Urine RBC (Auto) < 1 /hpf (0-3) 12/29/17 14:55 Ur Squamous Epith Cells 1 /hpf (0-5) 12/29/17 14:55 Urine Bacteria Rare (<OCC) 12/29/17 14:55 Discharge Exam - Head Exam Head Exam: ATRAUMATIC, NORMOCEPHALIC Discharge Plan - Follow Up Plan Condition: FAIR Disposition: HOME/ ROUTINE Instructions: Heart Failure, Adult, High Blood Pressure in Adults, COPD Including Emphysema (DC) Additional Instructions: FOLLOW UP WITH DR KHAN IN HIS OFFICE ----CALL FOR APPOINTMENT FOLLOW UP WITH DR ROSADO IN HIS OFFICE ----CALL FOR APPOINTMENT FOLLOW UP WITH DR OCHOA IN HIS OFFICE ----CALL FOR APPOINTMENT CONTINUE HOME MEDICATION ACTIVITY TOLERATED CALL DR KHAN OR GO TO THE EMERGENCY ROOM IF SYMPTOM RETURN OR WORSENING Referrals: Rodo Rosado MD [Staff Provider] - Ad Khan MD [Staff Provider] - Olvin Ochoa MD [Staff Provider] -
--- NOTE | 2018-01-08 06:28 | DS ---
DISCHARGE DIAGNOSES: Tracheobronchitis, multidrug-resistant Escherichia coli, type 2 diabetes, hypertension, bronchial asthma, and major depression. HOSPITAL COURSE: This is a 62-year-old female with history of tracheostomy, longstanding hypertension, bronchial asthma, type 2 diabetes, morbid obesity, major depressive psychosis, who is compliant with diet, medication, and followup. The patient was recently discharged to the subacute rehab for treatment of pneumonia. The patient did not improve. She came back with cough, congestion, shortness of breath, wheezing, thick yellow sputum production, positive for E. coli, multidrug resistant. The patient was admitted to the floor, given IV antibiotics, AccuChek, sliding scale, Solu-Medrol. The patient's condition started to improve. She felt better. She is being discharged with outpatient followup. PHYSICAL EXAMINATION: VITAL SIGNS: Blood pressure 125/64, pulse 84, respiratory rate 20, and temperature 98.2. LUNGS: Decreased air entry. Positive rhonchi. CARDIOVASCULAR SYSTEM: S1 and S2, regular. No heave. No thrill. ABDOMEN: Soft. Nontender. Bowel sounds are positive. ASSESSMENT: 1. Tracheobronchitis. 2. Acute exacerbation of bronchial asthma. 3. Type 2 diabetes. 4. Obesity. 5. Bronchial asthma. PLAN: Antibiotics. Monitor the patient. Discharge the patient. Ad Khan MD
== END 2018-01-07 22:31 | disposition home or self-care (01) | DRG 140 ==
LOC: C.ER 16:18 → C.3T 18:29 → C.5S 01-01 21:15
PROVIDERS: ADMIT Internal Medicine; ATTEND Internal Medicine
DX: J44.0 Chronic obstructive pulmonary disease with (acute) lower respiratory infection (principal); J18.9 Pneumonia, unspecified organism; J96.10 Chronic respiratory failure, unspecified whether with hypoxia or hypercapnia; J45.901 Unspecified asthma with (acute) exacerbation; J95.00 Unspecified tracheostomy complication; N39.0 Urinary tract infection, site not specified; I11.0 Hypertensive heart disease with heart failure; I50.9 Heart failure, unspecified; F25.0 Schizoaffective disorder, bipolar type; B96.4 Proteus (mirabilis) (morganii) as the cause of diseases classified elsewhere; E86.0 Dehydration; J20.8 Acute bronchitis due to other specified organisms; R45.851 Suicidal ideations; Z68.41 Body mass index [BMI] 40.0-44.9, adult; E11.9 Type 2 diabetes mellitus without complications; B96.20 Unspecified Escherichia coli [E. coli] as the cause of diseases classified elsewhere; J44.1 Chronic obstructive pulmonary disease with (acute) exacerbation; M19.90 Unspecified osteoarthritis, unspecified site; G47.30 Sleep apnea, unspecified; Y95 Nosocomial condition; Z16.24 Resistance to multiple antibiotics; E78.5 Hyperlipidemia, unspecified; F41.9 Anxiety disorder, unspecified; E66.01 Morbid (severe) obesity due to excess calories; G47.00 Insomnia, unspecified; Z99.81 Dependence on supplemental oxygen; Z87.01 Personal history of pneumonia (recurrent); Z79.4 Long term (current) use of insulin; Z90.49 Acquired absence of other specified parts of digestive tract; Z90.710 Acquired absence of both cervix and uterus

== ENCOUNTER 2018-02-15 14:45 | Inpatient (IN) | payer OTHER ==
[2018-02-15 14:54] VITALS: BMI 47.0
[2018-02-15] MEDS ORDERED: MethylPREDNISolone 40 mg Vial IVP STA (15:15)
[2018-02-15] MEDS ORDERED: Sodium Chloride 0.9% 1,000 ML IV STA (15:15)
[2018-02-15] MEDS ORDERED: Albuterol-Ipratrop 3 mg / 0.5 (3 ml) UD IH STA (15:15)
--- NOTE | 2018-02-15 15:39 | C.PDOC ---
History Of Present Illness 62 years old female brought to ED for evaluation of exacerbating asthma/ COPD. Patient complaints of shortness of breath associated with fever(105) and cough with green sputum that began 4 days ago. Denies chest pain, abdominal pain, or vomiting. PMD: * Ad [place] Time Seen by Provider: 02/15/18 14:48 Chief Complaint (Nursing): Shortness Of Breath History Per: Patient History/Exam Limitations: no limitations Onset/Duration Of Symptoms: Days Current Symptoms Are (Timing): Still Present Exacerbating Factor(s): Coughing Current Respiratory Medications: See Home Med List Associated Symptoms: Fever. denies: Chills, Chest Pain Recent travel outside of the [place]: No Past Medical History Reviewed: Historical Data, Nursing Documentation, Vital Signs Vital Signs: Last Vital Signs Temp 103.0 F H 02/15/18 15:00 Pulse 119 H 02/15/18 15:00 Resp 22 02/15/18 15:00 BP 119/57 L 02/15/18 15:00 Pulse Ox 94 L 02/15/18 15:00 - Medical History PMH: Anxiety, Asthma, Bipolar Disorder, Bronchitis, CHF, COPD, Depression, Emphysema, Gall Bladder Disease, HTN, Pneumonia, Seizures, Sleep Apnea Surgical History: Appendectomy, Cholecystectomy - [facility] Procedures ASSISTANCE WITH RESPIRATORY VENTILATION, <24 HRS, CPAP (03/14/16) CENTRAL VENOUS CATHETER PLACEMENT WITH GUIDANCE (10/24/14) CHANGE TRACHEOSTOMY DEVICE IN TRACHEA, EXTERNAL APPROACH (07/03/17) CONTINUOUS INVASIVE MECHANICAL VENTILATION <96 CONSEC HRS (03/07/14) DRAINAGE OF LUNG LINGULA, ENDO, DIAGN (11/30/17) ENTERAL INFUSION OF CONCENTRATED NUT. SUBSTANCES (09/17/12) INSERT ENDOTRACHEAL TUBE (09/17/12) INSERTION OF ENDOTRACHEAL AIRWAY INTO TRACHEA, VIA OPENING (06/12/17) INSERTION OF INFUSION DEV INTO SUP VENA CAVA, PERC APPROACH (11/13/17) INSERTION OF INFUSION DEVICE INTO UPPER VEIN, PERC APPROACH (10/04/17) INSPECTION OF LARYNX, ENDO (11/30/17) INTRODUCE OF OTH THERAP SUBST INTO RESP TRACT, VIA OPENING (05/03/15) INTRODUCTION OF NUTRITIONAL INTO UP GI, VIA OPENING (06/12/17) NEBULIZER THERAPY (09/17/12) REMOVAL OF TRACHEOSTOMY DEVICE FROM TRACHEA, COUNTY AUDITOR APPROACH (06/12/17) RESPIRATORY VENTILATION, 24-96 CONSECUTIVE HOURS (11/13/17) RESPIRATORY VENTILATION, GREATER THAN 96 CONSECUTIVE HOURS (02/27/17) Family History: States: Unknown Family Hx - Social History Hx Tobacco Use: No Hx Alcohol Use: No Hx Substance Use: No - Immunization History Hx Tetanus Toxoid Vaccination: No Hx Influenza Vaccination: No Hx Pneumococcal Vaccination: No Review Of Systems Except As Marked, All Systems Reviewed And Found Negative. Cardiovascular: Negative for: Chest Pain Gastrointestinal: Negative for: Vomiting, Abdominal Pain Physical Exam - Physical Exam Additional Physical Exam Comments: Constitutional: No acute distress. Head: Normocephalic. Atraumatic. Eyes: PERRL. ENT: Moist mucous membranes. Neck: Supple. Cardiovascular: Regular rate. Radial pulse 2+ bilaterally. Chest: No tenderness. Respiratory: Wheezing and rhonchi. Has an Oxygen collar at tach. No Tachypnea. Speaks 1 word sentences at a time. GI: Soft. Nontender. Nondistended. Back: No CVA tenderness. Musculoskeletal: No tenderness or swelling of extremities. Skin: No rash. Neurologic: Alert, no focal deficit. ED Course And Treatment - Laboratory Results Result Diagrams: 02/15/18 14:55 02/15/18 14:55 O2 Sat by Pulse Oximetry: 94 (RA) Pulse Ox Interpretation: Normal Medical Decision Making Medical Decision Making: Plan: * IV Fluids * Tylenol * Solu-Medrol * Albuterol peak flow * Blood gas * Blood work * CXR * Blood culture * Urine culture * Flu AB swab * Urinalysis EKG: * Sinus Tachycardic at 118 bpm * No ST elevations CXR: HISTORY: dyspnea COMPARISON: Chest x-ray performed 01/01/18 TECHNIQUE: Chest, one view. FINDINGS: Examination markedly limited by habitus. Tracheostomy tube. LUNGS: Patchy opacities suspicious for pneumonia or edema and most prominently involving the right upper, left hilar/infrahilar regions. Mild pulmonary venous congestion. PLEURA: No significant pleural effusion identified. No definite pneumothorax . CARDIOVASCULAR: Cardiomegaly. No significant atherosclerotic calcification present. OSSEOUS STRUCTURES: Degenerative changes. VISUALIZED UPPER ABDOMEN: Unremarkable. OTHER FINDINGS: None. IMPRESSION: Tracheostomy tube. Cardiomegaly. Patchy opacities suspicious for pneumonia or edema and most prominently involving the right upper, left hilar/infrahilar regions. Mild pulmonary venous congestion. Lactate negative. Dr. Khan accepts patient to his service. Disposition - Disposition Disposition: HOSPITALIZED Disposition Time: 16:25 Condition: GUARDED Forms: [facility] (Gabonese) - POA Core Measure Indicators: Pneumonia - Clinical Impression Clinical Impression: COPD exacerbation, Sepsis, Pneumonia - Scribe Statement The provider has reviewed the documentation as recorded by the Scribwilliams Gregorio All medical record entries made by the Tessibe were at my direction and personally dictated by me. I have reviewed the chart and agree that the record accurately reflects my personal performance of the history, physical exam, medical decision making, and the department course for this patient. I have also personally directed, reviewed, and agree with the discharge instructions and disposition.
[2018-02-15 15:42] LABS: BASO % 0.2 % (0.0-2.0); EOS % 0.2 % (0.0-4.0); HEMOGLOBIN 10.8 g/dL (11.0-16.0); LYMPH % 5.3 % (20.0-40.0); MEAN CORPUSCULAR HEMOGLOBIN 26.4 pg (27.0-31.0); MEAN CORPUSCULAR HGB CONC 33.1 g/dL (33.0-37.0); MEAN PLATELET VOLUME 8.8 fL (7.2-11.7); MONO # 1.1 K/uL (0.0-0.8); MONO % 5.4 % (0.0-10.0); NEUT # 17.4 K/uL (1.8-7.0); NEUT % 88.9 % (50.0-75.0); RBC 4.09 Mil/uL (3.80-5.20); RED CELL DISTRIBUTION WIDTH 16.7 % (11.5-14.5)
[2018-02-15 15:44] LABS: ABG ALLEN TEST PO; ARTERIAL BLOOD GAS HCO3 26.8 mmol/L (21-28); ARTERIAL BLOOD GAS PCO2 50 mm/Hg (35-45); ARTERIAL BLOOD GAS PH 7.37 (7.35-7.45); ARTERIAL BLOOD GAS PO2 61 mm/Hg (80-100); ARTERIAL BLOOD GAS TCO2 30.4 mmol/L (22-28)
[2018-02-15] MEDS ORDERED: Albuterol-Ipratrop 3 mg / 0.5 (3 ml) UD ONE (15:49)
[2018-02-15 15:50] LABS: MEAN CELL VOLUME 79.8 fL (81.0-99.0); PLATELET COUNT 118 K/uL (130-400); WHITE BLOOD COUNT 19.5 K/uL (4.8-10.8)
[2018-02-15 15:54] LABS: ALBUMIN 3.8 g/dL (3.5-5.0); ALT/SGPT 12 U/L (9-52); AST/SGOT 20 U/L (14-36); BLOOD UREA NITROGEN 16 mg/dL (7-17); CALCIUM 8.9 mg/dl (8.6-10.4); GFR NON-AFRICAN AMERICAN > 60
--- NOTE | 2018-02-15 16:06 | RAD ---
HISTORY: dyspnea COMPARISON: Chest x-ray performed 01/01/18 TECHNIQUE: Chest, one view. FINDINGS: Examination markedly limited by habitus. Tracheostomy tube. LUNGS: Patchy opacities suspicious for pneumonia or edema and most prominently involving the right upper, left hilar/infrahilar regions. Mild pulmonary venous congestion. PLEURA: No significant pleural effusion identified. No definite pneumothorax . CARDIOVASCULAR: Cardiomegaly. No significant atherosclerotic calcification present. OSSEOUS STRUCTURES: Degenerative changes. VISUALIZED UPPER ABDOMEN: Unremarkable. OTHER FINDINGS: None. IMPRESSION: Tracheostomy tube. Cardiomegaly. Patchy opacities suspicious for pneumonia or edema and most prominently involving the right upper, left hilar/infrahilar regions. Mild pulmonary venous congestion.
[2018-02-15] MEDS ORDERED: Moxifloxacin IV 400mg/250ml NS 400 MG/250 ML BAG IVPB ONE ×2 (16:12→16:38)
[2018-02-15] MEDS ORDERED: Vancomycin 1 gm/NS 200 ml 1 GM/200 ML BAG IVPB STA (16:12)
[2018-02-15 17:47] LABS: BANDS 1 % (0-2); LYMPHOCYTE 11 % (20-40); MONOCYTE 4 % (0-10); NEUTROPHIL 84 % (50-75); TOTAL CELLS COUNTED 100
[2018-02-15 17:48] LABS: ANISOCYTOSIS SLIGHT; MICROCYTOSIS SLIGHT; PLATELET ESTIMATE SLIGHTLY DECREASED (NORMAL)
[2018-02-15 18:10] LABS: URINE BILIRUBIN NEGATIVE (NEGATIVE); URINE BLOOD NEGATIVE (NEGATIVE); URINE CLARITY Clear (Clear); URINE COLOR Yellow (YELLOW); URINE GLUCOSE (UA) NORMAL (Normal); URINE LEUKOCYTE ESTERASE NEG Leu/uL (Negative); URINE PROTEIN NEGATIVE (NEGATIVE); URINE UROBILINOGEN NORMAL mg/dL (0.2-1.0)
[2018-02-15] MEDS: guaiFENesin 600 mg ER Tab PO SCH (21:28)
[2018-02-15] MEDS: Oxycodone/Acetaminophen 5/325 mg Tab PO PRN (21:28)
[2018-02-15] MEDS: QUEtiapine 200 mg XR Tab PO SCH (21:28)
[2018-02-15] MEDS: Vancomycin 1 gm/NS 200 ml 1 GM/200 ML BAG IVPB SCH (21:29)
[2018-02-15] MEDS: (Novolog) Insulin Aspart, Recombinant 100 u/ml 10 ml vial SC SCH (22:05)
[2018-02-15] MEDS ORDERED: Ciprofloxacin 400mg/200ml D5W 400 MG/200 ML BAG IVPB SCH (23:00)
--- NOTE | 2018-02-15 23:48 | CP.PCM.CON ---
History of Present Illness - History of Present Illness History of Present Illness: INFECTIOUS DISEASE CONSULT; HPI: 62 years old female brought to ED for evaluation of exacerbating asthma/ COPD. Patient complaints of shortness of breath associated with fever(105) and cough with green sputum that began 4 days ago. Denies chest pain, abdominal pain, or vomiting. HX OBTAINED FROM THE CHART. Patient well known to me from previous admissions and has history off recurrent lower respiratory tract infections with multidrug resistance organisms. Patient recently admitted in November, and had bronchoscopy done. Bronchial washings were positive for Proteus mirabilis sensitive to Merrem and resistant to quinolones. Patient had tolerated IV Merrem in the past without any reaction. Patient has leukocytosis on admission with WBC count of 19.5. Patient also has a trach collar with purulent secretions as reported by the RN. Chest x-ray on admission also showed preliminary report of pneumonia. Patient was given moxifloxacin and vancomycin 1 dose. Infectious disease consultation requested by PMD for pneumonia and sepsis/elevated temperature of 105. PMH: Anxiety, Asthma, Bipolar Disorder, Bronchitis, CHF, COPD, Depression, Emphysema, Gall Bladder Disease, HTN, Pneumonia, Seizures, Sleep Apnea Surgical History: Appendectomy, Cholecystectomy - [facility] Procedures ASSISTANCE WITH RESPIRATORY VENTILATION, <24 HRS, CPAP (03/14/16) CENTRAL VENOUS CATHETER PLACEMENT WITH GUIDANCE (10/24/14) CHANGE TRACHEOSTOMY DEVICE IN TRACHEA, EXTERNAL APPROACH (07/03/17) CONTINUOUS INVASIVE MECHANICAL VENTILATION <96 CONSEC HRS (03/07/14) DRAINAGE OF LUNG LINGULA, ENDO, DIAGN (11/30/17) ENTERAL INFUSION OF CONCENTRATED NUT. SUBSTANCES (09/17/12) INSERT ENDOTRACHEAL TUBE (09/17/12) INSERTION OF ENDOTRACHEAL AIRWAY INTO TRACHEA, VIA OPENING (06/12/17) INSERTION OF INFUSION DEV INTO SUP VENA CAVA, PERC APPROACH (11/13/17) INSERTION OF INFUSION DEVICE INTO UPPER VEIN, PERC APPROACH (10/04/17) INSPECTION OF LARYNX, ENDO (11/30/17) INTRODUCE OF OTH THERAP SUBST INTO RESP TRACT, VIA OPENING (05/03/15) INTRODUCTION OF NUTRITIONAL INTO UP GI, VIA OPENING (06/12/17) NEBULIZER THERAPY (09/17/12) REMOVAL OF TRACHEOSTOMY DEVICE FROM TRACHEA, PRODUCE SORTER APPROACH (06/12/17) RESPIRATORY VENTILATION, 24-96 CONSECUTIVE HOURS (11/13/17) RESPIRATORY VENTILATION, GREATER THAN 96 CONSECUTIVE HOURS (02/27/17) Family History: States: Unknown Family Hx - Social History Hx Tobacco Use: No Hx Alcohol Use: No Hx Substance Use: No - Immunization History Hx Tetanus Toxoid Vaccination: No Hx Influenza Vaccination: No Hx Pneumococcal Vaccination: No ALLERGY; ASPIRIN, CEFTRIAXONE, BUT HAS TOLERATED mERRE IN THE PAST. IODINE, IBUPROFEN AND FAZAL. Review of Systems - Review of Systems All systems: reviewed and no additional remarkable complaints except ( PER HPI.) Past Patient History - Infectious Disease Hx of Infectious Diseases: None - Tetanus Immunizations Tetanus Immunization: Unknown - Past Medical History & Family History Past Medical History?: Yes - Past Social History Smoking Status: Unknown If Ever Smoked - CARDIAC Hx Congestive Heart Failure: Yes Hx Hypertension: Yes - PULMONARY Hx Asthma: Yes Hx Bronchitis: Yes Hx Chronic Obstructive Pulmonary Disease (COPD): Yes Hx Emphysema: Yes Hx Pneumonia: Yes Hx Sleep Apnea: Yes - NEUROLOGICAL Hx Seizures: Yes - HEENT Hx HEENT Problems: Yes Hx Cataracts: Yes - RENAL Hx Chronic Kidney Disease: No - ENDOCRINE/METABOLIC Hx Hypothyroidism: No - HEMATOLOGICAL/ONCOLOGICAL Hx Human Immunodeficiency Virus (HIV): No - INTEGUMENTARY Hx Dermatological Problems: No - MUSCULOSKELETAL/RHEUMATOLOGICAL Hx Arthritis: No Hx Rheumatoid Arthritis: No - GASTROINTESTINAL Hx Gall Bladder Disease: Yes - GENITOURINARY/GYNECOLOGICAL Hx Sexually Transmitted Disorders: No - PSYCHIATRIC Hx Anxiety: Yes Hx Bipolar Disorder: Yes Hx Depression: Yes Hx Substance Use: No - SURGICAL HISTORY Hx Appendectomy: Yes Hx Cholecystectomy: Yes - ANESTHESIA Hx Anesthesia: Yes Hx Anesthesia Reactions: No Hx Malignant Hyperthermia: No Meds Allergies/Adverse Reactions: Allergies Allergy/AdvReac Type Severity Reaction Status Date / Time aspirin Allergy ANAPHYLAXIS Verified 02/15/18 14:54 ceftriaxone sodium Allergy ANAPHYLAXIS Verified 02/15/18 14:54 [From Rocephin] ibuprofen [From Motrin] Allergy ANAPHYLAXIS Verified 02/15/18 14:54 iodine Allergy ANAPHYLAXIS Verified 02/15/18 14:54 raspberry Allergy ANAPHYLAXIS Verified 02/15/18 14:54 - Medications Medications: Current Medications Acetaminophen (Tylenol 325mg Tab) 650 mg PO Q4H PRN PRN Reason: Pain, Mild (1-3) Albuterol Sulfate (Albuterol 0.083% Inhal Liz (2.5 Mg/3 Ml) Ud) 2.5 mg INH TID SHAYLA Benzonatate (Tessalon Perles) 100 mg PO BID [facility] Enoxaparin Sodium (Lovenox) 40 mg SC DAILY [facility] Gabapentin (Neurontin) 800 mg PO TID [facility] Guaifenesin (Mucinex La) 600 mg PO TID [facility] Last Admin: 02/15/18 21:28 Dose: 600 mg Vancomycin/Sodium Chloride (Vancomycin 1 Gm/Ns 200 Ml) 1 gm in 200 mls @ 133 mls/hr IVPB Q12H [facility]; Protocol Stop: 02/20/18 20:31 Last Admin: 02/15/18 21:29 Dose: 133 mls/hr Ciprofloxacin (Cipro 400mg/200ml Dsw) 400 mg in 200 mls @ 133 mls/hr IVPB Q12H [facility]; Protocol [facility]ulin [facility] ([facility]olog) [facility]; Protocol Last Admin: 02/15/18 22:05 Dose: Not Given Lorazepam (Ativan) 2 mg PO Q12H PRN PRN Reason: Anxiety Montelukast Sodium (Singulair) 10 mg PO [facility] Last Admin: 02/15/18 21:28 Dose: 10 mg Oxycodone/Acetaminophen (Percocet 5/325 Mg Tab) 1 tab PO Q4H PRN PRN Reason: Pain, severe (8-10) Stop: 02/18/18 19:22 Last Admin: 02/15/18 21:28 Dose: 1 tab Pantoprazole Sodium (Protonix Ec Tab) 20 mg PO DAILY [facility] Quetiapine Fumarate (Seroquel Xr) 400 mg PO Q12 [facility] Last Admin: 02/15/18 21:28 Dose: 400 mg Sertraline HCl (Zoloft) 100 mg PO BID [facility] Trazodone HCl (Desyrel) 150 mg PO [facility] Last Admin: 02/15/18 21:28 Dose: 150 mg Physical Exam - Constitutional Appears: No Acute Distress - Head Exam Head Exam: NORMAL INSPECTION - Eye Exam Eye Exam: EOMI, PERRL - ENT Exam ENT Exam: Mucous Membranes Moist (+VE TRACH COLLAR.), Normal Exam - Neck Exam Neck exam: Positive for: Normal Inspection - Respiratory Exam Respiratory Exam: Prolonged Expiratory Phase, Rhonchi, Wheezes - Cardiovascular Exam Cardiovascular Exam: Tachycardia, REGULAR RHYTHM, +S1, +S2 - GI/Abdominal Exam GI & Abdominal Exam: Normal Bowel Sounds, Soft - Extremities Exam Extremities exam: Positive for: pedal edema, pedal pulses present. Negative for: calf tenderness - Neurological Exam Neurological exam: Alert, CN II-XII Intact, Oriented x3 - Skin Skin Exam: Dry, Normal Color, Warm Results - Vital Signs Recent Vital Signs: Last Vital Signs Temp 99.7 F H 02/15/18 22:30 Pulse 110 H 02/15/18 22:30 Resp 18 02/15/18 22:30 BP 130/82 02/15/18 19:28 Pulse Ox 95 02/15/18 22:30 - Labs Result Diagrams: 02/15/18 14:55 02/15/18 14:55 Labs: Laboratory Results - last 24 hr 02/15/18 02/15/18 02/15/18 14:55 14:55 15:16 WBC 19.5 H D RBC 4.09 Hgb 10.8 L Hct 32.6 L MCV 79.8 L D MCH 26.4 L MCHC 33.1 RDW 16.7 H Plt Count 118 L D MPV 8.8 Neut % (Auto) 88.9 H Lymph % (Auto) 5.3 L [place] % (Auto) 5.4 Eos % (Auto) 0.2 Baso % (Auto) 0.2 Neut # (Auto) 17.4 H Lymph # (Auto) 1.0 [place] # (Auto) 1.1 H Eos # (Auto) 0.0 Baso # (Auto) 0.0 Neutrophils % (Manual) 84 H Band Neutrophils % 1 Lymphocytes % (Manual) 11 L Monocytes % (Manual) 4 Platelet Estimate Slightly decreased L Anisocytosis (manual) Slight Microcytosis (manual) Slight Puncture Site pCO2 pO2 HCO3 ABG pH ABG Total CO2 ABG O2 Saturation ABG Base Excess Rob Test ABG Potassium A-a O2 Difference Respiratory Index Glucose Lactate FiO2 Sodium 141 Potassium 4.1 Chloride 103 Carbon Dioxide 29 Anion Gap 13 BUN 16 Creatinine 0.8 Est GFR ( Amer) > 60 Est GFR (Non-Af Amer) > 60 POC Glucose (mg/dL) Random Glucose 170 H D Lactic Acid Calcium 8.9 Phosphorus 2.4 L Magnesium 1.5 L Total Bilirubin 0.5 AST 20 ALT 12 Alkaline Phosphatase 130 H Total Protein 7.5 Albumin 3.8 Globulin 3.8 Albumin/Globulin Ratio 1.0 Arterial Blood Potassium Urine Color Urine Clarity Urine pH Ur Specific [place] Urine Protein Urine Glucose (UA) Urine Ketones Urine Blood Urine Nitrate Urine Bilirubin Urine Urobilinogen Ur Leukocyte Esterase Urine WBC (Auto) Urine RBC (Auto) Influenza Typ A,B (EIA) Negative for flu a/b 02/15/18 02/15/18 02/15/18 15:41 18:03 20:40 WBC RBC Hgb Hct MCV MCH MCHC RDW Plt Count MPV Neut % (Auto) Lymph % (Auto) [place] % (Auto) Eos % (Auto) Baso % (Auto) Neut # (Auto) Lymph # (Auto) [place] # (Auto) Eos # (Auto) Baso # (Auto) Neutrophils % (Manual) Band Neutrophils % Lymphocytes % (Manual) Monocytes % (Manual) Platelet Estimate Anisocytosis (manual) Microcytosis (manual) Puncture Site Lr pCO2 50 H pO2 61 L HCO3 26.8 ABG pH 7.37 ABG Total CO2 30.4 H ABG O2 Saturation 96.0 ABG Base Excess 2.7 Rob Test Po ABG Potassium 3.9 A-a O2 Difference 126.0 Respiratory Index 2.1 Glucose 170 H Lactate 1.4 FiO2 35.0 Sodium 140.0 Potassium Chloride 109.0 H Carbon Dioxide Anion Gap BUN Creatinine Est GFR ( Amer) Est GFR (Non-Af Amer) POC Glucose (mg/dL) Random Glucose Lactic Acid 0.9 Calcium Phosphorus Magnesium Total Bilirubin AST ALT Alkaline Phosphatase Total Protein Albumin Globulin Albumin/Globulin Ratio Arterial Blood Potassium 3.9 Urine Color Yellow Urine Clarity Clear Urine pH 6.0 Ur Specific [place] 1.011 Urine Protein Negative Urine Glucose (UA) Normal Urine Ketones Negative Urine Blood Negative Urine Nitrate Negative Urine Bilirubin Negative Urine Urobilinogen Normal Ur Leukocyte Esterase Neg Urine WBC (Auto) < 1 Urine RBC (Auto) < 1 Influenza Typ A,B (EIA) 02/15/18 21:38 WBC RBC Hgb Hct MCV MCH MCHC RDW Plt Count MPV Neut % (Auto) Lymph % (Auto) [place] % (Auto) Eos % (Auto) Baso % (Auto) Neut # (Auto) Lymph # (Auto) [place] # (Auto) Eos # (Auto) Baso # (Auto) Neutrophils % (Manual) Band Neutrophils % Lymphocytes % (Manual) Monocytes % (Manual) Platelet Estimate Anisocytosis (manual) Microcytosis (manual) Puncture Site pCO2 pO2 HCO3 ABG pH ABG Total CO2 ABG O2 Saturation ABG Base Excess Rob Test ABG Potassium A-a O2 Difference Respiratory Index Glucose Lactate FiO2 Sodium Potassium Chloride Carbon Dioxide Anion Gap BUN Creatinine Est GFR ( Amer) Est GFR (Non-Af Amer) POC Glucose (mg/dL) 284 H Random Glucose Lactic Acid Calcium Phosphorus Magnesium Total Bilirubin AST ALT Alkaline Phosphatase Total Protein Albumin Globulin Albumin/Globulin Ratio Arterial Blood Potassium Urine Color Urine Clarity Urine pH Ur Specific [place] Urine Protein Urine Glucose (UA) Urine Ketones Urine Blood Urine Nitrate Urine Bilirubin Urine Urobilinogen Ur Leukocyte Esterase Urine WBC (Auto) Urine RBC (Auto) Influenza Typ A,B (EIA) - Imaging and Cardiology Chest x-ray Status: Report reviewed by me (PATCHY OPACITIES SUSPICIOUS FOR PNEUMONIA OR EDEMA RUL/LT. HILAR/INFRAHILAR REGION. mILD PVC.) Assessment & Plan (1) Sepsis Status: Acute (2) Pneumonia Status: Acute (3) COPD exacerbation Status: Acute (4) Tracheostomy dependence Status: Acute - Assessment and Plan (Free Text) Plan: PLAN; PANCULTURE TRACHEAL ASPIRATE AND CULTURE. ESR CRP. DC IV CIPRO. START IV MERREM 1GM IVPB Q 8HRLY 02/16/18. CONTINUE IV VANCOMYCIN 1GM IVPB Q 12HRLY 02/15/18 F/U VANCO TROUGH LEVEL PRIOR TO 4TH DOSE AND KEEP BETWEEN 10-20MCG/ML. F/U CULTURES TO ADJUST ABX. CONTACT PRECAUTIONS (HX OF MDR -PROTEUS MIRABLIS IN BRONCHIAL WASHINGS. ) CASE DISCUSSED WITH STAFF.
[2018-02-15] MEDS: Albuterol 0.083% Inhal Sol (2.5 mg/3 mL) UD INH SCH (23:49)
[2018-02-16 04:44] LABS: URINE BILIRUBIN NEGATIVE (NEGATIVE); URINE BLOOD NEGATIVE (NEGATIVE); URINE CLARITY Clear (Clear); URINE COLOR Yellow (YELLOW); URINE GLUCOSE (UA) 3+ mg/dL (Normal); URINE LEUKOCYTE ESTERASE NEG Leu/uL (Negative); URINE PROTEIN NEGATIVE (NEGATIVE); URINE UROBILINOGEN NORMAL mg/dL (0.2-1.0)
[2018-02-16 04:47] LABS: SQUAMOUS EPITHIAL < 1 /hpf (0-5)
[2018-02-16] MEDS: Oxycodone/Acetaminophen 5/325 mg Tab PO PRN ×2 (05:22→10:54)
[2018-02-16] MEDS ORDERED: Meropenem 1 GM in Sodium Chloride 0.9% 100 ML IVPB ONE (06:00)
[2018-02-16 07:15] LABS: BASO % 0.1 % (0.0-2.0); HEMOGLOBIN 10.6 g/dL (11.0-16.0); LYMPH # 1.2 K/uL (1.0-4.3); MEAN CELL VOLUME 80.5 fL (81.0-99.0); MEAN CORPUSCULAR HEMOGLOBIN 26.4 pg (27.0-31.0); MEAN CORPUSCULAR HGB CONC 32.7 g/dL (33.0-37.0); MEAN PLATELET VOLUME 8.8 fL (7.2-11.7); MONO # 0.8 K/uL (0.0-0.8); MONO % 4.6 % (0.0-10.0); NEUT % 88.3 % (50.0-75.0); PLATELET COUNT 130 K/uL (130-400); RED CELL DISTRIBUTION WIDTH 16.6 % (11.5-14.5)
[2018-02-16 07:39] LABS: BLOOD UREA NITROGEN 18 mg/dL (7-17); CALCIUM 8.9 mg/dl (8.6-10.4); GFR NON-AFRICAN AMERICAN > 60
[2018-02-16] MEDS: (Novolog) Insulin Aspart, Recombinant 100 u/ml 10 ml vial SC SCH ×4 (07:50→21:35)
[2018-02-16 08:36] VITALS: RESP 20
[2018-02-16] MEDS: Pantoprazole 20 mg EC Tab PO SCH (09:46)
[2018-02-16] MEDS: guaiFENesin 600 mg ER Tab PO SCH ×3 (09:47→17:30)
[2018-02-16] MEDS: Vancomycin 1 gm/NS 200 ml 1 GM/200 ML BAG IVPB SCH ×2 (10:00→21:03)
[2018-02-16] MEDS: Albuterol 0.083% Inhal Sol (2.5 mg/3 mL) UD INH SCH ×3 (10:05→18:00)
[2018-02-16 10:52] LABS: ERYTHROCYTE SEDIMENTATION RATE 78 mm/hr (0-20)
[2018-02-16] MEDS: Enoxaparin 40 mg Syringe SC SCH (10:56)
[2018-02-16 11:32] LABS: LYMPHOCYTE 7 % (20-40); MONOCYTE 5 % (0-10); NEUTROPHIL 88 % (50-75); TOTAL CELLS COUNTED 100
[2018-02-16 11:33] LABS: PLATELET ESTIMATE NORMAL (NORMAL)
[2018-02-16 11:34] LABS: ANISOCYTOSIS SLIGHT; POIKILOCYTOSIS SLIGHT; TOXIC GRANULATION PRESENT
[2018-02-16 11:35] LABS: LARGE PLATELETS PRESENT
[2018-02-16 11:37] LABS: HYPOCHROMIC SLIGHT; POLYCHROMIC SLIGHT
[2018-02-16 11:38] LABS: OVALOCYTES SLIGHT
[2018-02-16] MEDS: QUEtiapine 200 mg XR Tab PO SCH ×2 (12:46→21:08)
--- NOTE | 2018-02-16 14:47 | CP.PCM.PN ---
Subjective - Date & Time of Evaluation Date of Evaluation: 02/16/18 Time of Evaluation: 14:47 - Subjective Subjective: CHIEF COMPLAINTS TODAY : TMAX 103, BP 119/57. C/O THICK SECRETIONS PULSE OX 94% ROS. HEENT : N. Resp : +VE cough, +VE wheezing , DENIES pleuritic CP ,or hemoptysis Cardio : No anginal CP, PND, orthopnea, palpitation GI : No abd.pain, n/v ,diarrhea or GI bleeding . 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 Musculoskel : No joint swelling , Derm : No rash Psych : Normal affect. Ext : No swelling ,calf pain PE. Pt. is alert awake in no distress. +VE TRACH COLLAR V.S As noted in the chart Head ,ear nose,throat and eyes : Normal. Neck : Supple with normal carotids. Lungs: BILATERAL RHONCHI AND WHEEZE Heart : S1 & S2 REGULAR, SINUS TACHYCARDIA Abd : Soft non tender with normal bowel sounds. Neuro : Moves all ext. with no localized deficit. Ext : No edema with intact pulses.Non tender calves Derm : No rashes or decubitus ulcer. LABS/RADIOLOGY: wbc 17.0 ESR 78 ASSESSMENT FEVER/SEPSIS PNEUMONIA RUL/L HILAR AND INFRAHILAR. EXACERBATION OF COPD +VE TRACH COLLAR. R/O UTI /PLAN; DC iv cIPRO .START iv MERREM 1 G EVERY 8 HOURLY IN VIEW OF HISTORY OF pROTEUS MIRABILIS IN BRONCHIAL WASHINGS 12/13/17 R- TO CIPRO. 02/16/18 ADD iv vANCO 1 G EVERY 12 [id number]/22/18 WHILE AWAITING CULTURES 02/16/18 PULMONARY EVALUATION IN PROGRESS. fOLLOW-UP CULTURES TO ADJUST ANTIBIOTICS. PULMONARY TOILET. Objective - Vital Signs/Intake and Output Vital Signs (last 24 hours): Temp Pulse Resp BP Pulse Ox 98.4 F 85 20 144/73 96 02/16/18 07:00 02/16/18 08:16 02/16/18 07:00 02/16/18 07:00 02/16/18 07:00 Intake and Output: 02/16/18 02/16/18 06:59 18:59 Intake Total 200 Balance 200 - Medications Medications: Current Medications Acetaminophen (Tylenol 325mg Tab) 650 mg PO Q4H PRN PRN Reason: Pain, Mild (1-3) Albuterol Sulfate (Albuterol 0.083% Inhal Liz (2.5 Mg/3 Ml) Ud) 2.5 mg INH TID [facility] Last Admin: 02/16/18 10:05 Dose: 2.5 mg Benzonatate (Tessalon Perles) 100 mg PO BID [facility] Last Admin: 02/16/18 09:47 Dose: 100 mg Enoxaparin Sodium (Lovenox) 40 mg SC DAILY [facility] Last Admin: 02/16/18 10:56 Dose: 40 mg Gabapentin (Neurontin) 800 mg PO TID [facility] Last Admin: 02/16/18 13:59 Dose: 800 mg Guaifenesin (Mucinex La) 600 mg PO TID [facility] Last Admin: 02/16/18 13:59 Dose: 600 mg Vancomycin/Sodium Chloride (Vancomycin 1 Gm/Ns 200 Ml) 1 gm in 200 mls @ 133 mls/hr IVPB Q12H [facility]; Protocol Stop: 02/20/18 20:31 Last Admin: 02/16/18 10:00 Dose: 133 mls/hr Meropenem 1 gm/ Sodium (Chloride) 100 mls @ 100 mls/hr IVPB Q8H [facility]; Protocol Insulin Aspart (Novolog) 0 unit SC [facility]; Protocol Last Admin: 02/16/18 12:43 Dose: 3 u Lorazepam (Ativan) 2 mg PO Q12H PRN PRN Reason: Anxiety Montelukast Sodium (Singulair) 10 mg PO [facility] Last Admin: 02/15/18 21:28 Dose: 10 mg Oxycodone/Acetaminophen (Percocet 5/325 Mg Tab) 1 tab PO Q4H PRN PRN Reason: Pain, severe (8-10) Stop: 02/18/18 19:22 Last Admin: 02/16/18 10:54 Dose: 1 tab Pantoprazole Sodium (Protonix Ec Tab) 20 mg PO DAILY [facility] Last Admin: 02/16/18 09:46 Dose: 20 mg Quetiapine Fumarate (Seroquel Xr) 400 mg PO Q12 [facility] Last Admin: 02/16/18 12:46 Dose: 400 mg Sertraline HCl (Zoloft) 100 mg PO BID [facility] Last Admin: 02/16/18 09:47 Dose: 100 mg Trazodone HCl (Desyrel) 150 mg PO [facility] Last Admin: 02/15/18 21:28 Dose: 150 mg - Labs Labs: 02/16/18 07:04 02/16/18 07:04 Assessment and Plan (1) Sepsis Status: Acute (2) Pneumonia Status: Acute (3) COPD exacerbation Status: Acute (4) Tracheostomy dependence Status: Acute
[2018-02-16] MEDS: Meropenem 1 GM in Sodium Chloride 0.9% 100 ML IVPB SCH ×2 (15:34→22:48)
--- NOTE | 2018-02-16 17:18 | CP.PCM.CON ---
History of Present Illness - History of Present Illness History of Present Illness: reason for consultation: fever/status post tracheostomy/cough 62-year-old female with history of asthma/COPD/overlap syndrome, status post tracheostomy was admitted with shortness of breath, cough and fever. Patient recently had multiple admissions and treated for pneumonia . Review of Systems - Review of Systems All systems: reviewed and no additional remarkable complaints except (complaining of cough, shortness of breath and fever) Past Patient History - Infectious Disease Hx of Infectious Diseases: None - Tetanus Immunizations Tetanus Immunization: Unknown - Past Medical History & Family History Past Medical History?: Yes - Past Social History Smoking Status: Unknown If Ever Smoked - CARDIAC Hx Congestive Heart Failure: Yes Hx Hypertension: Yes - PULMONARY Hx Chronic Obstructive Pulmonary Disease (COPD): Yes - NEUROLOGICAL Hx Seizures: Yes - HEENT Hx HEENT Problems: Yes Hx Cataracts: Yes - RENAL Hx Chronic Kidney Disease: No - ENDOCRINE/METABOLIC Hx Hypothyroidism: No - HEMATOLOGICAL/ONCOLOGICAL Hx Human Immunodeficiency Virus (HIV): No - INTEGUMENTARY Hx Dermatological Problems: No - MUSCULOSKELETAL/RHEUMATOLOGICAL Hx Arthritis: No Hx Rheumatoid Arthritis: No - GASTROINTESTINAL Hx Gall Bladder Disease: Yes - GENITOURINARY/GYNECOLOGICAL Hx Sexually Transmitted Disorders: No - PSYCHIATRIC Hx Anxiety: Yes Hx Bipolar Disorder: Yes Hx Depression: Yes Hx Substance Use: No - SURGICAL HISTORY Hx Appendectomy: Yes Hx Cholecystectomy: Yes - ANESTHESIA Hx Anesthesia: Yes Hx Anesthesia Reactions: No Hx Malignant Hyperthermia: No Meds Allergies/Adverse Reactions: Allergies Allergy/AdvReac Type Severity Reaction Status Date / Time aspirin Allergy ANAPHYLAXIS Verified 02/15/18 14:54 ceftriaxone sodium Allergy ANAPHYLAXIS Verified 02/15/18 14:54 [From Rocephin] ibuprofen [From Motrin] Allergy ANAPHYLAXIS Verified 02/15/18 14:54 iodine Allergy ANAPHYLAXIS Verified 02/15/18 14:54 raspberry Allergy ANAPHYLAXIS Verified 02/15/18 14:54 - Medications Medications: Current Medications Acetaminophen (Tylenol 325mg Tab) 650 mg PO Q4H PRN PRN Reason: Pain, Mild (1-3) Albuterol Sulfate (Albuterol 0.083% Inhal Liz (2.5 Mg/3 Ml) Ud) 2.5 mg INH TID [facility] Last Admin: 02/16/18 14:10 Dose: 2.5 mg Benzonatate (Tessalon Perles) 100 mg PO BID [facility] Last Admin: 02/16/18 09:47 Dose: 100 mg Enoxaparin Sodium (Lovenox) 40 mg SC DAILY [facility] Last Admin: 02/16/18 10:56 Dose: 40 mg Gabapentin (Neurontin) 800 mg PO TID [facility] Last Admin: 02/16/18 13:59 Dose: 800 mg Guaifenesin (Mucinex La) 600 mg PO TID [facility] Last Admin: 02/16/18 13:59 Dose: 600 mg Vancomycin/Sodium Chloride (Vancomycin 1 Gm/Ns 200 Ml) 1 gm in 200 mls @ 133 mls/hr IVPB Q12H [facility]; Protocol Stop: 02/20/18 20:31 Last Admin: 02/16/18 10:00 Dose: 133 mls/hr Meropenem 1 gm/ Sodium (Chloride) 100 mls @ 100 mls/hr IVPB Q8H [facility]; Protocol Last Admin: 02/16/18 15:34 Dose: 100 mls/hr Insulin Aspart (Novolog) 0 unit SC ACHS [facility]; Protocol Last Admin: 02/16/18 12:43 Dose: 3 u Lorazepam (Ativan) 2 mg PO Q12H PRN PRN Reason: Anxiety Montelukast Sodium (Singulair) 10 mg PO [facility] Last Admin: 02/15/18 21:28 Dose: 10 mg Oxycodone/Acetaminophen (Percocet 5/325 Mg Tab) 1 tab PO Q4H PRN PRN Reason: Pain, severe (8-10) Stop: 02/18/18 19:22 Last Admin: 02/16/18 10:54 Dose: 1 tab Pantoprazole Sodium (Protonix Ec Tab) 20 mg PO DAILY [facility] Last Admin: 02/16/18 09:46 Dose: 20 mg Quetiapine Fumarate (Seroquel Xr) 400 mg PO Q12 [facility] Last Admin: 02/16/18 12:46 Dose: 400 mg Sertraline HCl (Zoloft) 100 mg PO BID [facility] Last Admin: 02/16/18 09:47 Dose: 100 mg Trazodone HCl (Desyrel) 150 mg PO [facility] Last Admin: 02/15/18 21:28 Dose: 150 mg Physical Exam - Head Exam Head Exam: ATRAUMATIC, NORMOCEPHALIC - ENT Exam ENT Exam: Mucous Membranes Moist - Neck Exam Neck exam: Positive for: Normal Inspection - Respiratory Exam Respiratory Exam: Decreased Breath Sounds - Cardiovascular Exam Cardiovascular Exam: REGULAR RHYTHM - GI/Abdominal Exam GI & Abdominal Exam: Normal Bowel Sounds, Soft - Extremities Exam Extremities exam: Positive for: normal inspection Results - Vital Signs Recent Vital Signs: Last Vital Signs Temp 98.4 F 02/16/18 15:00 Pulse 88 02/16/18 16:00 Resp 20 02/16/18 15:00 BP 148/81 02/16/18 15:00 Pulse Ox 97 02/16/18 15:00 - Labs Result Diagrams: 02/16/18 07:04 02/16/18 07:04 Labs: Laboratory Results - last 24 hr 02/15/18 02/15/18 02/15/18 14:55 18:03 20:40 WBC RBC Hgb Hct MCV MCH MCHC RDW Plt Count MPV Neut % (Auto) Lymph % (Auto) Murray % (Auto) Eos % (Auto) Baso % (Auto) Neut # (Auto) Lymph # (Auto) Murray # (Auto) Eos # (Auto) Baso # (Auto) Neutrophils % (Manual) 84 H Band Neutrophils % 1 Lymphocytes % (Manual) 11 L Monocytes % (Manual) 4 Toxic Granulation Platelet Estimate Slightly decreased L Large Platelets Polychromasia Hypochromasia (manual) Poikilocytosis (manual Anisocytosis (manual) Slight Microcytosis (manual) Slight Ovalocytes ESR Sodium Potassium Chloride Carbon Dioxide Anion Gap BUN Creatinine Est GFR ( Amer) Est GFR (Non-Af Amer) POC Glucose (mg/dL) Random Glucose Lactic Acid 0.9 Calcium C-React Prot High Sens Urine Color Yellow Urine Clarity Clear Urine pH 6.0 Ur Specific Webster 1.011 Urine Protein Negative Urine Glucose (UA) Normal Urine Ketones Negative Urine Blood Negative Urine Nitrate Negative Urine Bilirubin Negative Urine Urobilinogen Normal Ur Leukocyte Esterase Neg Urine WBC (Auto) < 1 Urine RBC (Auto) < 1 Ur Squamous Epith Cells 02/15/18 02/16/18 02/16/18 21:38 04:32 06:39 WBC RBC Hgb Hct MCV MCH MCHC RDW Plt Count MPV Neut % (Auto) Lymph % (Auto) Murray % (Auto) Eos % (Auto) Baso % (Auto) Neut # (Auto) Lymph # (Auto) Murray # (Auto) Eos # (Auto) Baso # (Auto) Neutrophils % (Manual) Band Neutrophils % Lymphocytes % (Manual) Monocytes % (Manual) Toxic Granulation Platelet Estimate Large Platelets Polychromasia Hypochromasia (manual) Poikilocytosis (manual Anisocytosis (manual) Microcytosis (manual) Ovalocytes ESR Sodium Potassium Chloride Carbon Dioxide Anion Gap BUN Creatinine Est GFR ( Amer) Est GFR (Non-Af Amer) POC Glucose (mg/dL) 284 H 273 H Random Glucose Lactic Acid Calcium C-React Prot High Sens Urine Color Yellow Urine Clarity Clear Urine pH 6.0 Ur Specific Webster 1.013 Urine Protein Negative Urine Glucose (UA) 3+ H Urine Ketones Negative Urine Blood Negative Urine Nitrate Negative Urine Bilirubin Negative Urine Urobilinogen Normal Ur Leukocyte Esterase Neg Urine WBC (Auto) 1 Urine RBC (Auto) 1 Ur Squamous Epith Cells < 1 02/16/18 02/16/18 02/16/18 07:04 07:04 07:04 WBC 17.0 H RBC 4.00 Hgb 10.6 L Hct 32.3 L MCV 80.5 L MCH 26.4 L MCHC 32.7 L RDW 16.6 H Plt Count 130 MPV 8.8 Neut % (Auto) 88.3 H Lymph % (Auto) 7.0 L Murray % (Auto) 4.6 Eos % (Auto) 0.0 Baso % (Auto) 0.1 Neut # (Auto) 15.0 H Lymph # (Auto) 1.2 Murray # (Auto) 0.8 Eos # (Auto) 0.0 Baso # (Auto) 0.0 Neutrophils % (Manual) 88 H Band Neutrophils % Lymphocytes % (Manual) 7 L Monocytes % (Manual) 5 Toxic Granulation Present Platelet Estimate Normal Large Platelets Present Polychromasia Slight Hypochromasia (manual) Slight Poikilocytosis (manual Slight Anisocytosis (manual) Slight Microcytosis (manual) Ovalocytes Slight ESR 78 H Sodium 140 Potassium 4.2 Chloride 104 Carbon Dioxide 29 Anion Gap 12 BUN 18 H Creatinine 0.7 Est GFR ( Amer) > 60 Est GFR (Non-Af Amer) > 60 POC Glucose (mg/dL) Random Glucose 279 H D Lactic Acid Calcium 8.9 C-React Prot High Sens > 15.00 H Urine Color Urine Clarity Urine pH Ur Specific Webster Urine Protein Urine Glucose (UA) Urine Ketones Urine Blood Urine Nitrate Urine Bilirubin Urine Urobilinogen Ur Leukocyte Esterase Urine WBC (Auto) Urine RBC (Auto) Ur Squamous Epith Cells 02/16/18 02/16/18 11:44 16:43 WBC RBC Hgb Hct MCV MCH MCHC RDW Plt Count MPV Neut % (Auto) Lymph % (Auto) Murray % (Auto) Eos % (Auto) Baso % (Auto) Neut # (Auto) Lymph # (Auto) Murray # (Auto) Eos # (Auto) Baso # (Auto) Neutrophils % (Manual) Band Neutrophils % Lymphocytes % (Manual) Monocytes % (Manual) Toxic Granulation Platelet Estimate Large Platelets Polychromasia Hypochromasia (manual) Poikilocytosis (manual Anisocytosis (manual) Microcytosis (manual) Ovalocytes ESR Sodium Potassium Chloride Carbon Dioxide Anion Gap BUN Creatinine Est GFR ( Amer) Est GFR (Non-Af Amer) POC Glucose (mg/dL) 242 H 169 H Random Glucose Lactic Acid Calcium C-React Prot High Sens Urine Color Urine Clarity Urine pH Ur Specific Webster Urine Protein Urine Glucose (UA) Urine Ketones Urine Blood Urine Nitrate Urine Bilirubin Urine Urobilinogen Ur Leukocyte Esterase Urine WBC (Auto) Urine RBC (Auto) Ur Squamous Epith Cells Assessment & Plan (1) Pneumonia Assessment and Plan: IV antibiotics as per infectious disease Followup culture and sensitivity Nebulizer treatment Tracheostomy care Status: Acute (2) Tracheostomy dependence Status: Acute
--- NOTE | 2018-02-17 00:30 | HP ---
COVERING FOR: Ad Khan MD HISTORY OF PRESENT ILLNESS: The patient is a 62-year-old female who has a history of tracheostomy tube following repeated intubations in the past. The patient was admitted because of shortness of breath and productive cough of greenish sputum. She denies any chest pain. SOCIAL HISTORY: The patient is a nonsmoker. She lives with her daughter. MEDICATIONS: Albuterol inhaler 2.5 mg t.i.d., Ativan 2 mg p.o. every 12 hours p.r.n., Desyrel 150 mg once a day, Lovenox 40 mg subcutaneous once a day, meropenem 1 g intravenously every 8 hours, Neurontin 800 mg t.i.d., Seroquel 400 mg every 12 hours, Singulair 10 mg once a day, vancomycin 1 g intravenously every 12 hours. PAST MEDICAL HISTORY: Bronchial asthma and history of multiple respiratory failure, requiring intubation and mechanical ventilation. PHYSICAL EXAMINATION: GENERAL: The patient is a middle-aged female who does not appear to be in acute distress. VITAL SIGNS: Blood pressure 148/81, heart 86, temperature 98.4, respirations 20. HEENT: Head is normocephalic. CHEST: Bilateral rhonchi. HEART: S1 and S2 are regular. EXTREMITIES: Trace leg edema. LABORATORY DATA: Hemoglobin and hematocrit 10.6 and 32.3, white count 17,000, and platelet count 130,000. Today's SMA-7 is within normal limits except for BUN of 80 and glucose 279. Influenza type A and B serology is negative. Chest x-ray revealed cardiomegaly with widened mediastinum and bilateral alveolar infiltrates involving the right upper lobe and the left lower lobe. The official report of the x-ray stated that the opacity is suspicious for pneumonia or edema and most prominently involving the right upper and left infrahilar regions and mild pulmonary venous congestion. Echocardiographic study in 04/2017 revealed normal ejection fraction plus possibly bicuspid aortic valve with moderate valvular aortic stenosis. A blood culture is negative after 24 hours. EKG revealed sinus tachycardia at rate of 118. ASSESSMENT: 1. Bilateral pneumonia. 2. Questionable bicuspid aortic valve. 3. Tracheostomy following multiple intubations in the past. PLAN: Continue Lovenox 40 mg subcutaneously once a day, IV meropenem at 1 g every 8 hours, Seroquel 400 mg twice a day, Singulair 10 mg once a day, IV vancomycin at 1 g every 12 hours. I will request pulmonary consult from Dr. Rosado, the patient's circulation director. Hugo Barker MD
[2018-02-17] MEDS: Meropenem 1 GM in Sodium Chloride 0.9% 100 ML IVPB SCH ×3 (05:06→21:25)
[2018-02-17] MEDS: Oxycodone/Acetaminophen 5/325 mg Tab PO PRN (05:07)
[2018-02-17] MEDS: (Novolog) Insulin Aspart, Recombinant 100 u/ml 10 ml vial SC SCH ×4 (08:00→21:39)
[2018-02-17] MEDS: Albuterol 0.083% Inhal Sol (2.5 mg/3 mL) UD INH SCH ×3 (09:02→17:56)
[2018-02-17] MEDS: Pantoprazole 20 mg EC Tab PO SCH (10:13)
[2018-02-17] MEDS: guaiFENesin 600 mg ER Tab PO SCH ×3 (10:13→17:48)
[2018-02-17] MEDS: QUEtiapine 200 mg XR Tab PO SCH ×2 (10:13→21:24)
[2018-02-17] MEDS: Enoxaparin 40 mg Syringe SC SCH (10:14)
[2018-02-17] MEDS: Vancomycin 1 gm/NS 200 ml 1 GM/200 ML BAG IVPB SCH ×2 (10:16→21:25)
--- NOTE | 2018-02-17 15:20 | CP.PCM.PN ---
Subjective - Date & Time of Evaluation Date of Evaluation: 02/17/18 Time of Evaluation: 15:00 - Subjective Subjective: Patient seen and examined Productive cough Awake and responsive on IV antibiotics Nebulizer treatments Followup chest x-ray Continue present treatment Objective - Vital Signs/Intake and Output Vital Signs (last 24 hours): Temp Pulse Resp BP Pulse Ox 98.9 F 72 20 112/71 97 02/17/18 07:00 02/17/18 07:00 02/17/18 07:00 02/17/18 07:00 02/17/18 07:00 Intake and Output: 02/17/18 02/17/18 06:59 18:59 Intake Total 130 480 Balance 130 480 - Medications Medications: Current Medications Acetaminophen (Tylenol 325mg Tab) 650 mg PO Q4H PRN PRN Reason: Pain, Mild (1-3) Albuterol Sulfate (Albuterol 0.083% Inhal Liz (2.5 Mg/3 Ml) Ud) 2.5 mg INH TID [facility] Last Admin: 02/17/18 09:02 Dose: 2.5 mg Benzonatate (Tessalon Perles) 100 mg PO BID [facility] Last Admin: 02/17/18 10:13 Dose: 100 mg Enoxaparin Sodium (Lovenox) 40 mg SC DAILY [facility] Last Admin: 02/17/18 10:14 Dose: 40 mg Gabapentin (Neurontin) 800 mg PO TID [facility] Last Admin: 02/17/18 13:04 Dose: 800 mg Guaifenesin (Mucinex La) 600 mg PO TID [facility] Last Admin: 02/17/18 13:04 Dose: 600 mg Vancomycin/Sodium Chloride (Vancomycin 1 Gm/Ns 200 Ml) 1 gm in 200 mls @ 133 mls/hr IVPB Q12H [facility]; Protocol Stop: 02/20/18 20:31 Last Admin: 02/17/18 10:16 Dose: 133 mls/hr Meropenem 1 gm/ Sodium (Chloride) 100 mls @ 100 mls/hr IVPB Q8H [facility]; Protocol Last Admin: 02/17/18 13:40 Dose: 100 mls/hr Insulin Aspart (Novolog) 0 unit SC ACHS [facility]; Protocol Last Admin: 02/17/18 12:43 Dose: 3 u Lorazepam (Ativan) 2 mg PO Q12H PRN PRN Reason: Anxiety Montelukast Sodium (Singulair) 10 mg PO HS [facility] Last Admin: 02/16/18 21:07 Dose: 10 mg Oxycodone/Acetaminophen (Percocet 5/325 Mg Tab) 1 tab PO Q4H PRN PRN Reason: Pain, severe (8-10) Stop: 02/18/18 19:22 Last Admin: 02/17/18 05:07 Dose: 1 tab Pantoprazole Sodium (Protonix Ec Tab) 20 mg PO DAILY [facility] Last Admin: 02/17/18 10:13 Dose: 20 mg Quetiapine Fumarate (Seroquel Xr) 400 mg PO Q12 [facility] Last Admin: 02/17/18 10:13 Dose: 400 mg Sertraline HCl (Zoloft) 100 mg PO BID [facility] Last Admin: 02/17/18 10:13 Dose: 100 mg Trazodone HCl (Desyrel) 150 mg PO HS [facility] Last Admin: 02/16/18 21:07 Dose: 150 mg - Labs Labs: 02/16/18 07:04 02/16/18 07:04 Assessment and Plan (1) Pneumonia Status: Acute (2) Tracheostomy dependence Status: Acute
--- NOTE | 2018-02-17 21:31 | PN ---
DATE: 02/17/[address] Ad Khan. SUBJECTIVE: The patient complains of throbbing right-sided headache. She denies any chest pain. PHYSICAL EXAMINATION VITAL SIGNS: Blood pressure 112/71, heart rate 72, temperature 98.9, respirations 20. HEENT: Pale conjunctivae. CHEST: Bilateral rhonchi. HEART: S1 and S2 regular. EXTREMITIES: Trace leg edema. LABORATORY DATA: Today's blood sugar is 147 and 170 respectively. The patient was evaluated by Dr. Rosado yesterday and was followed up by him today. ASSESSMENT: 1. Pneumonia. 2. Tracheostomy dependence. 3. Questionable bicuspid aortic valve. 4. Headache. PLAN: Continue current albuterol inhaler. Continue subcutaneous Lovenox 40 mg once a day, IV meropenem 1 g every 8 hours, Mucinex LA 600 mg t.i.d., Singulair 10 mg at bedtime, vancomycin 1 g intravenously every [address] scan without contrast. Hugo Barker MD
[2018-02-18] MEDS: Meropenem 1 GM in Sodium Chloride 0.9% 100 ML IVPB SCH ×3 (05:34→21:56)
[2018-02-18] MEDS: (Novolog) Insulin Aspart, Recombinant 100 u/ml 10 ml vial SC SCH ×4 (09:05→22:00)
[2018-02-18] MEDS: Albuterol 0.083% Inhal Sol (2.5 mg/3 mL) UD INH SCH ×3 (09:10→19:51)
[2018-02-18] MEDS: Vancomycin 1 gm/NS 200 ml 1 GM/200 ML BAG IVPB SCH ×2 (09:15→21:30)
[2018-02-18] MEDS: Enoxaparin 40 mg Syringe SC SCH (09:16)
[2018-02-18] MEDS: QUEtiapine 200 mg XR Tab PO SCH ×2 (09:16→22:51)
[2018-02-18] MEDS: guaiFENesin 600 mg ER Tab PO SCH ×3 (09:17→17:45)
[2018-02-18] MEDS: Pantoprazole 20 mg EC Tab PO SCH (09:17)
--- NOTE | 2018-02-18 09:32 | CARD ---
APPROVED REPORT Date of service: 02/15/2018 EKG Measurement Heart [id number] <Conclusion> Sinus tachycardia Otherwise normal ECG
--- NOTE | 2018-02-18 12:50 | CT ---
Date of service: 02/18/2018 PROCEDURE: CT HEAD WITHOUT CONTRAST. HISTORY: HEADACHE COMPARISON: 08/25/2016 TECHNIQUE: Axial computed tomography images were obtained through the head/brain without intravenous contrast. Radiation dose: Total exam DLP = 1541.89 mGy-cm. This CT exam was performed using one or more of the following dose reduction techniques: Automated exposure control, adjustment of the mA and/or kV according to patient size, and/or use of iterative reconstruction technique. FINDINGS: HEMORRHAGE: No intracranial hemorrhage. BRAIN: No mass effect or edema. Mild periventricular white matter lucency consistent chronic microvascular ischemic change. No atrophy. No evidence of acute infarct. VENTRICLES: Unremarkable. No hydrocephalus. CALVARIUM: Unremarkable. PARANASAL SINUSES: Unremarkable as visualized. No significant inflammatory changes. MASTOID AIR CELLS: Unremarkable as visualized. No inflammatory changes. OTHER FINDINGS: None. IMPRESSION: No intracranial mass, hemorrhage or evidence of acute infarct. Mild chronic white matter ischemic change. Otherwise unremarkable examination.
[2018-02-18] MEDS: Oxycodone/Acetaminophen 5/325 mg Tab PO PRN ×3 (12:59→21:57)
--- NOTE | 2018-02-18 14:08 | CP.PCM.PN ---
Subjective - Date & Time of Evaluation Date of Evaluation: 02/18/18 Time of Evaluation: 11:40 - Subjective Subjective: the patient seen and examined Cough and shortness of breath improving Afebrile Continue antibiotics\ Followup CAT scan Objective - Vital Signs/Intake and Output Vital Signs (last 24 hours): Temp Pulse Resp BP Pulse Ox 98.6 F 77 20 133/79 97 02/18/18 07:15 02/18/18 07:15 02/18/18 07:15 02/18/18 07:15 02/18/18 07:15 Intake and Output: 02/18/18 02/18/18 06:59 18:59 Intake Total 100 Balance 100 - Medications Medications: Current Medications Acetaminophen (Tylenol 325mg Tab) 650 mg PO Q4H PRN PRN Reason: Pain, Mild (1-3) Last Admin: 02/17/18 21:23 Dose: 650 mg Albuterol Sulfate (Albuterol 0.083% Inhal Liz (2.5 Mg/3 Ml) Ud) 2.5 mg INH TID [facility] Last Admin: 02/18/18 09:10 Dose: 2.5 mg Benzonatate (Tessalon Perles) 100 mg PO BID [facility] Last Admin: 02/18/18 09:17 Dose: 100 mg Enoxaparin Sodium (Lovenox) 40 mg SC DAILY [facility] Last Admin: 02/18/18 09:16 Dose: 40 mg Gabapentin (Neurontin) 800 mg PO TID [facility] Last Admin: 02/18/18 13:59 Dose: 800 mg Guaifenesin (Mucinex La) 600 mg PO TID [facility] Last Admin: 02/18/18 13:59 Dose: 600 mg Vancomycin/Sodium Chloride (Vancomycin 1 Gm/Ns 200 Ml) 1 gm in 200 mls @ 133 mls/hr IVPB Q12H [facility]; Protocol Stop: 02/20/18 20:31 Last Admin: 02/18/18 09:15 Dose: 133 mls/hr Meropenem 1 gm/ Sodium (Chloride) 100 mls @ 100 mls/hr IVPB Q8H [facility]; Protocol Last Admin: 02/18/18 13:58 Dose: 100 mls/hr Insulin Aspart (Novolog) 0 unit SC ACHS [facility]; Protocol Last Admin: 02/18/18 12:55 Dose: 3 unit Lorazepam (Ativan) 2 mg PO Q12H PRN PRN Reason: Anxiety Montelukast Sodium (Singulair) 10 mg PO HS [facility] Last Admin: 02/17/18 21:24 Dose: 10 mg Oxycodone/Acetaminophen (Percocet 5/325 Mg Tab) 1 tab PO Q4H PRN PRN Reason: Pain, severe (8-10) Stop: 02/18/18 19:22 Last Admin: 02/18/18 12:59 Dose: 1 tab Pantoprazole Sodium (Protonix Ec Tab) 20 mg PO DAILY [facility] Last Admin: 02/18/18 09:17 Dose: 20 mg Quetiapine Fumarate (Seroquel Xr) 400 mg PO Q12 [facility] Last Admin: 02/18/18 09:16 Dose: 400 mg Sertraline HCl (Zoloft) 100 mg PO BID [facility] Last Admin: 02/18/18 09:17 Dose: 100 mg Trazodone HCl (Desyrel) 150 mg PO HS [facility] Last Admin: 02/17/18 21:23 Dose: 150 mg - Labs Labs: 02/16/18 07:04 02/16/18 07:04 Assessment and Plan (1) Pneumonia Status: Acute (2) Tracheostomy dependence Status: Acute
--- NOTE | 2018-02-18 19:36 | PN ---
DATE: 02/18/2018 SUBJECTIVE: The patient is still experiencing right-sided headache. PHYSICAL EXAMINATION: VITAL SIGNS: Blood pressure 133/79, heart rate 77, temperature 98.6, respirations 20. HEENT: Normocephalic. CHEST: Bilateral rhonchi. HEART: S1 and S2 regular. EXTREMITIES: Trace leg edema. LABORATORY DATA: Head CT scan without contrast: No intracranial mass, hemorrhage, or evidence of acute infarct, mild chronic white matter ischemic changes. ASSESSMENT: 1. Pneumonia. 2. Tracheostomy dependence. 3. Persistent headache. 4. Questionable bicuspid aortic stenosis. 5. Depression. PLAN: Continue Lovenox 40 mg subcutaneously once a day, IV meropenem at 1 g every 8 hours, Seroquel 400 mg twice a day, vancomycin 1 g intravenously every 12 hours. Hugo Barker MD
--- NOTE | 2018-02-18 19:45 | CP.PCM.PN ---
Subjective - Date & Time of Evaluation Date of Evaluation: 02/18/18 Time of Evaluation: 19:45 - Subjective Subjective: CHIEF COMPLAINTS TODAY : afebrile, +ve trach collar c/o thick secretions ROS. HEENT : N. Resp : +VE cough, +VE wheezing , DENIES pleuritic CP ,or hemoptysis Cardio : No anginal CP, PND, orthopnea, palpitation GI : No abd.pain, n/v ,diarrhea or GI bleeding . DSP ENGINEER : No headache, vertigo, focal deficit. Musculoskel : No joint swelling , Derm : No rash Psych : Normal affect. Ext : No swelling ,calf pain PE. Pt. is alert awake in no distress. +VE TRACH COLLAR V.S As noted in the chart Head ,ear nose,throat and eyes : Normal. Neck : Supple with normal carotids. Lungs: BILATERAL RHONCHI AND WHEEZE Heart : S1 & S2 REGULAR, SINUS TACHYCARDIA Abd : Soft non tender with normal bowel sounds. Neuro : Moves all ext. with no localized deficit. Ext : No edema with intact pulses.Non tender calves Derm : No rashes or decubitus ulcer. LABS/RADIOLOGY: wbc 17.0 ESR 78 urine culture +ve GNR SPUTUM -P ASSESSMENT FEVER/SEPSIS PNEUMONIA RUL/L HILAR AND INFRAHILAR. EXACERBATION OF COPD +VE TRACH COLLAR. UTI /PLAN; CONTINUE iv MERREM 1 G EVERY 8 HOURLY IN VIEW OF HISTORY OF pROTEUS MIRABILIS IN BRONCHIAL WASHINGS 12/13/17 R- TO CIPRO. 02/16/18 CONTINUE iv VANCO 1 G EVERY 12 [id number]/22/18 WHILE AWAITING CULTURES 02/16/18 PULMONARY F/U NOTED fOLLOW-UP CULTURES TO ADJUST ANTIBIOTICS. PULMONARY TOILET. Objective - Vital Signs/Intake and Output Vital Signs (last 24 hours): Temp Pulse Resp BP Pulse Ox 97.2 F L 89 20 130/80 98 02/18/18 15:07 02/18/18 19:13 02/18/18 15:07 02/18/18 15:07 02/18/18 15:07 - Medications Medications: Current Medications Acetaminophen (Tylenol 325mg Tab) 650 mg PO Q4H PRN PRN Reason: Pain, Mild (1-3) Last Admin: 02/17/18 21:23 Dose: 650 mg Albuterol Sulfate (Albuterol 0.083% Inhal Liz (2.5 Mg/3 Ml) Ud) 2.5 mg INH TID [facility] Last Admin: 02/18/18 13:45 Dose: 2.5 mg Benzonatate (Tessalon Perles) 100 mg PO BID [facility] Last Admin: 02/18/18 17:45 Dose: 100 mg Enoxaparin Sodium (Lovenox) 40 mg SC DAILY [facility] Last Admin: 02/18/18 09:16 Dose: 40 mg Gabapentin (Neurontin) 800 mg PO TID [facility] Last Admin: 02/18/18 17:45 Dose: 800 mg Guaifenesin (Mucinex La) 600 mg PO TID [facility] Last Admin: 02/18/18 17:45 Dose: 600 mg Vancomycin/Sodium Chloride (Vancomycin 1 Gm/Ns 200 Ml) 1 gm in 200 mls @ 133 mls/hr IVPB Q12H [facility]; Protocol Stop: 02/20/18 20:31 Last Admin: 02/18/18 09:15 Dose: 133 mls/hr Meropenem 1 gm/ Sodium (Chloride) 100 mls @ 100 mls/hr IVPB Q8H [facility]; Protocol Last Admin: 02/18/18 13:58 Dose: 100 mls/hr Insulin Aspart (Novolog) 0 unit SC ACHS [facility]; Protocol Last Admin: 02/18/18 17:47 Dose: Not Given Lorazepam (Ativan) 2 mg PO Q12H PRN PRN Reason: Anxiety Montelukast Sodium (Singulair) 10 mg PO HS [facility] Last Admin: 02/17/18 21:24 Dose: 10 mg Pantoprazole Sodium (Protonix Ec Tab) 20 mg PO DAILY [facility] Last Admin: 02/18/18 09:17 Dose: 20 mg Quetiapine Fumarate (Seroquel Xr) 400 mg PO Q12 [facility] Last Admin: 02/18/18 09:16 Dose: 400 mg Sertraline HCl (Zoloft) 100 mg PO BID [facility] Last Admin: 02/18/18 17:46 Dose: 100 mg Trazodone HCl (Desyrel) 150 mg PO HS [facility] Last Admin: 02/17/18 21:23 Dose: 150 mg - Labs Labs: 02/16/18 07:04 02/16/18 07:04 Assessment and Plan (1) Sepsis Status: Acute (2) Pneumonia Status: Acute (3) COPD exacerbation Status: Acute (4) Tracheostomy dependence Status: Acute (5) UTI (urinary tract infection) Status: Acute
[2018-02-19] MEDS: Meropenem 1 GM in Sodium Chloride 0.9% 100 ML IVPB SCH ×3 (06:52→22:02)
[2018-02-19] MEDS: (Novolog) Insulin Aspart, Recombinant 100 u/ml 10 ml vial SC SCH ×4 (08:16→21:10)
[2018-02-19] MEDS: Vancomycin 1 gm/NS 200 ml 1 GM/200 ML BAG IVPB SCH ×2 (08:17→19:33)
[2018-02-19] MEDS: Pantoprazole 20 mg EC Tab PO SCH (09:21)
[2018-02-19] MEDS: guaiFENesin 600 mg ER Tab PO SCH ×3 (09:21→17:46)
[2018-02-19] MEDS: Enoxaparin 40 mg Syringe SC SCH (09:21)
[2018-02-19] MEDS: QUEtiapine 200 mg XR Tab PO SCH ×2 (09:22→22:02)
[2018-02-19] MEDS: Albuterol 0.083% Inhal Sol (2.5 mg/3 mL) UD INH SCH ×2 (09:45→20:15)
[2018-02-19] MEDS: Oxycodone/Acetaminophen 5/325 mg Tab PO PRN (18:00)
--- NOTE | 2018-02-19 21:08 | CP.PCM.PN ---
Subjective - Subjective Subjective: dictated Objective - Vital Signs/Intake and Output Vital Signs (last 24 hours): Temp Pulse Resp BP Pulse Ox 98.5 F 82 20 123/81 99 02/19/18 16:35 02/19/18 16:35 02/19/18 16:35 02/19/18 16:35 02/19/18 16:35 Intake and Output: 02/19/18 02/20/18 18:59 06:59 Intake Total 1100 Balance 1100 - Medications Medications: Current Medications Acetaminophen (Tylenol 325mg Tab) 650 mg PO Q4H PRN PRN Reason: Pain, Mild (1-3) Last Admin: 02/17/18 21:23 Dose: 650 mg Albuterol Sulfate (Albuterol 0.083% Inhal Liz (2.5 Mg/3 Ml) Ud) 2.5 mg INH TID [facility] Last Admin: 02/19/18 20:15 Dose: 2.5 mg Benzonatate (Tessalon Perles) 100 mg PO BID [facility] Last Admin: 02/19/18 17:46 Dose: 100 mg Enoxaparin Sodium (Lovenox) 40 mg SC DAILY [facility] Last Admin: 02/19/18 09:21 Dose: 40 mg Gabapentin (Neurontin) 800 mg PO TID [facility] Last Admin: 02/19/18 17:46 Dose: 800 mg Guaifenesin (Mucinex La) 600 mg PO TID [facility] Last Admin: 02/19/18 17:46 Dose: 600 mg Vancomycin/Sodium Chloride (Vancomycin 1 Gm/Ns 200 Ml) 1 gm in 200 mls @ 133 mls/hr IVPB Q12H [facility]; Protocol Stop: 02/20/18 20:31 Last Admin: 02/19/18 19:33 Dose: 133 mls/hr Meropenem 1 gm/ Sodium (Chloride) 100 mls @ 100 mls/hr IVPB Q8H [facility]; Protocol Last Admin: 02/19/18 13:17 Dose: 100 mls/hr Insulin Aspart (Novolog) 0 unit SC ACHS [facility]; Protocol Last Admin: 02/19/18 17:46 Dose: 3 unit Lorazepam (Ativan) 2 mg PO Q12H PRN PRN Reason: Anxiety Montelukast Sodium (Singulair) 10 mg PO HS [facility] Last Admin: 02/18/18 21:57 Dose: 10 mg Oxycodone/Acetaminophen (Percocet 5/325 Mg Tab) 1 tab PO Q4H PRN PRN Reason: Pain, severe (8-10) Stop: 02/22/18 21:48 Last Admin: 02/19/18 18:00 Dose: 1 tab Pantoprazole Sodium (Protonix Ec Tab) 20 mg PO DAILY [facility] Last Admin: 02/19/18 09:21 Dose: 20 mg Quetiapine Fumarate (Seroquel Xr) 400 mg PO Q12 [facility] Last Admin: 02/19/18 09:22 Dose: 400 mg Sertraline HCl (Zoloft) 100 mg PO BID [facility] Last Admin: 02/19/18 17:46 Dose: 100 mg Trazodone HCl (Desyrel) 150 mg PO HS [facility] Last Admin: 02/18/18 21:57 Dose: 150 mg - Labs Labs: 02/16/18 07:04 02/16/18 07:04
--- NOTE | 2018-02-19 22:39 | PN ---
DATE: 02/19/2018 SUBJECTIVE: Carin Moser is afebrile. Less cough. Less shortness of breath. Decreased secretion. PHYSICAL EXAMINATION: VITAL SIGNS: Blood pressure 123/81, pulse 82, respiratory rate 20, temperature 98.5. LUNGS: Decreased air entry. Positive rhonchi. CARDIOVASCULAR SYSTEM: S1 and S2 are regular. ABDOMEN: Soft. ASSESSMENT: 1. Tracheobronchitis, rule out pneumonia. The patient's sputum cultures are positive for gram-negative rods. 2. Chronic obstructive asthma. 3. Tracheostomy. 4. Type 2 diabetes. 5. Hypertension. PLAN: Continue current medications. Monitor the patient. Ad Khan MD
[2018-02-20] MEDS: Meropenem 1 GM in Sodium Chloride 0.9% 100 ML IVPB SCH ×2 (05:00→13:29)
[2018-02-20 06:19] LABS: BASO % 0.3 % (0.0-2.0); EOS # 0.3 K/uL (0.0-0.7); EOS % 3.7 % (0.0-4.0); HEMOGLOBIN 11.3 g/dL (11.0-16.0); LYMPH # 1.8 K/uL (1.0-4.3); LYMPH % 20.1 % (20.0-40.0); MEAN CELL VOLUME 80.2 fL (81.0-99.0); MEAN CORPUSCULAR HEMOGLOBIN 26.1 pg (27.0-31.0); MEAN CORPUSCULAR HGB CONC 32.6 g/dL (33.0-37.0); MONO # 0.7 K/uL (0.0-0.8); MONO % 7.8 % (0.0-10.0); NEUT # 6.2 K/uL (1.8-7.0); NEUT % 68.1 % (50.0-75.0); RBC 4.32 Mil/uL (3.80-5.20); WHITE BLOOD COUNT 9.1 K/uL (4.8-10.8)
[2018-02-20 06:42] LABS: BLOOD UREA NITROGEN 13 mg/dL (7-17); CALCIUM 9.2 mg/dl (8.6-10.4); GFR NON-AFRICAN AMERICAN > 60
[2018-02-20 07:46] VITALS: BP 121/72; TEMP 98.1; O2SAT 99
[2018-02-20] MEDS: Vancomycin 1 gm/NS 200 ml 1 GM/200 ML BAG IVPB SCH (08:07)
[2018-02-20] MEDS: (Novolog) Insulin Aspart, Recombinant 100 u/ml 10 ml vial SC SCH ×2 (08:07→12:17)
[2018-02-20] MEDS: Albuterol 0.083% Inhal Sol (2.5 mg/3 mL) UD INH SCH ×2 (09:15→13:30)
[2018-02-20] MEDS: Pantoprazole 20 mg EC Tab PO SCH (09:23)
[2018-02-20] MEDS: guaiFENesin 600 mg ER Tab PO SCH ×2 (09:23→13:33)
[2018-02-20] MEDS: Enoxaparin 40 mg Syringe SC SCH (09:23)
[2018-02-20] MEDS: QUEtiapine 200 mg XR Tab PO SCH (09:23)
[2018-02-20] MEDS: Oxycodone/Acetaminophen 5/325 mg Tab PO PRN (12:18)
--- NOTE | 2018-02-20 14:32 | CP.PCM.PN ---
Subjective - Date & Time of Evaluation Date of Evaluation: 02/20/18 Time of Evaluation: 14:32 - Subjective Subjective: CHIEF COMPLAINTS TODAY : afebrile, +ve trach collar FEELING BETTER -VESOB ROS. HEENT : N. Resp : +VE cough, +VE wheezing , DENIES pleuritic CP ,or hemoptysis Cardio : No anginal CP, PND, orthopnea, palpitation GI : No abd.pain, n/v ,diarrhea or GI bleeding . [employer] : No headache, vertigo, focal deficit. Musculoskel : No joint swelling , Derm : No rash Psych : Normal affect. Ext : No swelling ,calf pain PE. Pt. is alert awake in no distress. +VE TRACH COLLAR V.S As noted in the chart Head ,ear nose,throat and eyes : Normal. Neck : Supple with normal carotids. Lungs: LESS WHEEZE Heart : S1 & S2 REGULAR. Abd : Soft non tender with normal bowel sounds. Neuro : Moves all ext. with no localized deficit. Ext : No edema with intact pulses.Non tender calves Derm : No rashes or decubitus ulcer. LABS/RADIOLOGY: wbc 17.0---> 9.2 ESR 78 urine culture +ve GNR <10,000 SPUTUM - N DYAN ASSESSMENT FEVER/SEPSIS- IMPROVED PNEUMONIA EXACERBATION OF COPD +VE TRACH COLLAR. UTI /PLAN; PT CLEARED BY PMD FOR DISCHARGE VIN PETERS WAS GOING ON PT FOR fOLLOW-UP AT PMD OFFICE. PULMONARY TOILET. Objective - Vital Signs/Intake and Output Vital Signs (last 24 hours): Temp Pulse Resp BP Pulse Ox 98.1 F 91 H 20 121/72 99 02/20/18 07:00 02/20/18 12:39 02/20/18 07:00 02/20/18 07:00 02/20/18 07:00 Intake and Output: 02/20/18 02/20/18 06:59 18:59 Intake Total 900 Balance 900 - Medications Medications: Current Medications Acetaminophen (Tylenol 325mg Tab) 650 mg PO Q4H PRN PRN Reason: Pain, Mild (1-3) Last Admin: 02/17/18 21:23 Dose: 650 mg Albuterol Sulfate (Albuterol 0.083% Inhal Liz (2.5 Mg/3 Ml) Ud) 2.5 mg INH TID [facility] Last Admin: 02/20/18 13:30 Dose: 2.5 mg Benzonatate (Tessalon Perles) 100 mg PO BID [facility] Last Admin: 02/20/18 09:22 Dose: 100 mg Enoxaparin Sodium (Lovenox) 40 mg SC DAILY [facility] Last Admin: 02/20/18 09:23 Dose: 40 mg Gabapentin (Neurontin) 800 mg PO TID [facility] Last Admin: 02/20/18 13:29 Dose: 800 mg Guaifenesin (Mucinex La) 600 mg PO TID [facility] Last Admin: 02/20/18 13:33 Dose: Not Given Vancomycin/Sodium Chloride (Vancomycin 1 Gm/Ns 200 Ml) 1 gm in 200 mls @ 133 mls/hr IVPB Q12H [facility]; Protocol Stop: 02/20/18 20:31 Last Admin: 02/20/18 08:07 Dose: 133 mls/hr Meropenem 1 gm/ Sodium (Chloride) 100 mls @ 100 mls/hr IVPB Q8H [facility]; Protocol Last Admin: 02/20/18 13:29 Dose: 100 mls/hr [facility]ulin Aspart (Novolog) [facility]; Protocol Last Admin: 02/20/18 12:17 Dose: 2 unit Lorazepam (Ativan) 2 mg PO Q12H PRN PRN Reason: Anxiety Montelukast Sodium (Singulair) 10 mg PO [facility] Last Admin: 02/19/18 22:02 Dose: 10 mg Oxycodone/Acetaminophen (Percocet 5/325 Mg Tab) 1 tab PO Q4H PRN PRN Reason: Pain, severe (8-10) Stop: 02/22/18 21:48 Last Admin: 02/20/18 12:18 Dose: 1 tab Pantoprazole Sodium (Protonix Ec Tab) 20 mg PO DAILY [facility] Last Admin: 02/20/18 09:23 Dose: 20 mg Quetiapine Fumarate (Seroquel Xr) 400 mg PO Q12 [facility] Last Admin: 02/20/18 09:23 Dose: 400 mg Sertraline HCl (Zoloft) 100 mg PO BID [facility] Last Admin: 02/20/18 09:22 Dose: 100 mg Trazodone HCl (Desyrel) 150 mg PO [facility] Last Admin: 02/19/18 22:02 Dose: 150 mg - Labs Labs: 02/20/18 06:10 02/20/18 06:10 Assessment and Plan (1) Sepsis Status: Acute (2) Pneumonia Status: Acute (3) COPD exacerbation Status: Acute (4) Tracheostomy dependence Status: Acute (5) UTI (urinary tract infection) Status: Acute
--- NOTE | 2018-02-20 15:28 | CP.PCM.PN ---
Subjective - Date & Time of Evaluation Date of Evaluation: 02/20/18 Time of Evaluation: 12:40 - Subjective Subjective: Patient seen and examined at bedside. Resting comfortably in no acute distress. Denies CP, SOB, fever/chills, N/V. Head CT 02/18: No intracranial mass, hemorrhage, or evidence of acute infarct. Mild chronic white matter ischemic change. Otherwise unremarkable examination. Stable from pulmonary standpoint. Objective - Vital Signs/Intake and Output Vital Signs (last 24 hours): Temp Pulse Resp BP Pulse Ox 98.1 F 91 H 20 121/72 99 02/20/18 07:00 02/20/18 12:39 02/20/18 07:00 02/20/18 07:00 02/20/18 07:00 Intake and Output: 02/20/18 02/20/18 06:59 18:59 Intake Total 900 Balance 900 - Medications Medications: Current Medications Acetaminophen (Tylenol 325mg Tab) 650 mg PO Q4H PRN PRN Reason: Pain, Mild (1-3) Last Admin: 02/17/18 21:23 Dose: 650 mg Albuterol Sulfate (Albuterol 0.083% Inhal Liz (2.5 Mg/3 Ml) Ud) 2.5 mg INH TID [facility] Last Admin: 02/20/18 13:30 Dose: 2.5 mg Benzonatate (Tessalon Perles) 100 mg PO BID [facility] Last Admin: 02/20/18 09:22 Dose: 100 mg Enoxaparin Sodium (Lovenox) 40 mg SC DAILY [facility] Last Admin: 02/20/18 09:23 Dose: 40 mg Gabapentin (Neurontin) 800 mg PO TID [facility] Last Admin: 02/20/18 13:29 Dose: 800 mg Guaifenesin (Mucinex La) 600 mg PO TID [facility] Last Admin: 02/20/18 13:33 Dose: Not Given Vancomycin/Sodium Chloride (Vancomycin 1 Gm/Ns 200 Ml) 1 gm in 200 mls @ 133 mls/hr IVPB Q12H [facility]; Protocol Stop: 02/20/18 20:31 Last Admin: 02/20/18 08:07 Dose: 133 mls/hr Meropenem 1 gm/ Sodium (Chloride) 100 mls @ 100 mls/hr IVPB Q8H [facility]; Protocol Last Admin: 02/20/18 13:29 Dose: 100 mls/hr Insulin Aspart (Novolog) 0 unit SC ACHS [facility]; Protocol Last Admin: 02/20/18 12:17 Dose: 2 unit Lorazepam (Ativan) 2 mg PO Q12H PRN PRN Reason: Anxiety Montelukast Sodium (Singulair) 10 mg PO HS [facility] Last Admin: 02/19/18 22:02 Dose: 10 mg Oxycodone/Acetaminophen (Percocet 5/325 Mg Tab) 1 tab PO Q4H PRN PRN Reason: Pain, severe (8-10) Stop: 02/22/18 21:48 Last Admin: 02/20/18 12:18 Dose: 1 tab Pantoprazole Sodium (Protonix Ec Tab) 20 mg PO DAILY [facility] Last Admin: 02/20/18 09:23 Dose: 20 mg Quetiapine Fumarate (Seroquel Xr) 400 mg PO Q12 [facility] Last Admin: 02/20/18 09:23 Dose: 400 mg Sertraline HCl (Zoloft) 100 mg PO BID [facility] Last Admin: 02/20/18 09:22 Dose: 100 mg Trazodone HCl (Desyrel) 150 mg PO HS [facility] Last Admin: 02/19/18 22:02 Dose: 150 mg - Labs Labs: 02/20/18 06:10 02/20/18 06:10 Assessment and Plan (1) Pneumonia Status: Acute (2) Tracheostomy dependence Status: Acute
--- NOTE | 2018-02-20 16:14 | CP.PCM.PN ---
Subjective - Date & Time of Evaluation Date of Evaluation: 02/20/18 Time of Evaluation: 11:35 - Subjective Subjective: patient seen today , states feels better , sob and congestion improved , c/o slight headache to samantha R side No overnight events reported by RN a febrile a febrile since 02/16 todays labs reviewed - stable , no leukocytosi s Objective - Vital Signs/Intake and Output Vital Signs (last 24 hours): Temp Pulse Resp BP Pulse Ox 98.1 F 91 H 20 121/72 99 02/20/18 07:00 02/20/18 12:39 02/20/18 07:00 02/20/18 07:00 02/20/18 07:00 Intake and Output: 02/20/18 02/20/18 06:59 18:59 Intake Total 900 Balance 900 - Medications Medications: Current Medications Acetaminophen (Tylenol 325mg Tab) 650 mg PO Q4H PRN PRN Reason: Pain, Mild (1-3) Last Admin: 02/17/18 21:23 Dose: 650 mg Albuterol Sulfate (Albuterol 0.083% Inhal Liz (2.5 Mg/3 Ml) Ud) 2.5 mg INH TID [facility] Last Admin: 02/20/18 13:30 Dose: 2.5 mg Benzonatate (Tessalon Perles) 100 mg PO BID [facility] Last Admin: 02/20/18 09:22 Dose: 100 mg Enoxaparin Sodium (Lovenox) 40 mg SC DAILY [facility] Last Admin: 02/20/18 09:23 Dose: 40 mg Gabapentin (Neurontin) 800 mg PO TID [facility] Last Admin: 02/20/18 13:29 Dose: 800 mg Guaifenesin (Mucinex La) 600 mg PO TID [facility] Last Admin: 02/20/18 13:33 Dose: Not Given Vancomycin/Sodium Chloride (Vancomycin 1 Gm/Ns 200 Ml) 1 gm in 200 mls @ 133 mls/hr IVPB Q12H [facility]; Protocol Stop: 02/20/18 20:31 Last Admin: 02/20/18 08:07 Dose: 133 mls/hr Meropenem 1 gm/ Sodium (Chloride) 100 mls @ 100 mls/hr IVPB Q8H [facility]; Protocol Last Admin: 02/20/18 13:29 Dose: 100 mls/hr Insulin Aspart (Novolog) 0 unit SC ACHS [facility]; Protocol Last Admin: 02/20/18 12:17 Dose: 2 unit Lorazepam (Ativan) 2 mg PO Q12H PRN PRN Reason: Anxiety Montelukast Sodium (Singulair) 10 mg PO HS [facility] Last Admin: 02/19/18 22:02 Dose: 10 mg Oxycodone/Acetaminophen (Percocet 5/325 Mg Tab) 1 tab PO Q4H PRN PRN Reason: Pain, severe (8-10) Stop: 02/22/18 21:48 Last Admin: 02/20/18 12:18 Dose: 1 tab Pantoprazole Sodium (Protonix Ec Tab) 20 mg PO DAILY [facility] Last Admin: 02/20/18 09:23 Dose: 20 mg Quetiapine Fumarate (Seroquel Xr) 400 mg PO Q12 [facility] Last Admin: 02/20/18 09:23 Dose: 400 mg Sertraline HCl (Zoloft) 100 mg PO BID [facility] Last Admin: 02/20/18 09:22 Dose: 100 mg Trazodone HCl (Desyrel) 150 mg PO [facility] Last Admin: 02/19/18 22:02 Dose: 150 mg - Labs Labs: 02/20/18 06:10 02/20/18 06:10 Assessment and Plan - Assessment and Plan (Free Text) Assessment: A/P 62 yr old female with pmhx of Bipolar Disorder, Bronchitis, CHF, COPD, Depression, Emphysema, Gall Bladder Disease, HTN, admitted with exc. copd/ and fever a febrile since 02/16 started on antibiotics and clinically improved blood culture - negative for x 5 days Urine- gram negative rods and count less than 10,000 sputum culture- no grawth seen by Dr. Rosado today, cleared fro discharge from pul. standpoint D/W Dr. Khan, cleared fro discharge home today and f/u with Dr. Khan office in 1 week Discharge instructions discussed with patient who understands and agree with plan Patient instructed to returns to ED if symptoms returns
[2018-02-20 17:51] VITALS: PULSE 113
--- NOTE | 2018-02-20 22:51 | CP.PCM.DIS ---
Provider - Provider Date of Admission: 02/15/18 17:17 Attending physician: Ad Khan MD Consults: 02/15/18 19:17 Infectious Disease Consult Routine Comment: Consulting Provider: Wayne Celis Consulting Physician: Wayne Celis Reason for Consult: sepsis Pulmonology Consult Routine Comment: Consulting Provider: Rodo Rosado Consulting Physician: Rodo Rosado Reason for Consult: pneumonia Hospital Course - Lab Results Lab Results: Micro Results 02/15/18 15:40 Blood Blood Culture - Final NO GROWTH AFTER 5 DAYS 02/15/18 15:40 Blood Gram Stain - Final TEST NOT PERFORMED 02/15/18 14:55 Blood Blood Culture - Final NO GROWTH AFTER 5 DAYS 02/15/18 14:55 Blood Gram Stain - Final TEST NOT PERFORMED 02/17/18 18:53 Trachasp Gram Stain - Final 02/17/18 18:53 Trachasp Sputum Culture - Final NORMAL ORAL DYAN 02/15/18 18:03 Urine Urine Culture - Final No Growth (<1,000 CFU/ML) 02/16/18 06:00 Urine Urine Culture - Final Gram Negative Parrish Most Recent Lab Values WBC 9.1 K/uL (4.8-10.8) 02/20/18 06:10 RBC 4.32 Mil/uL (3.80-5.20) 02/20/18 06:10 Hgb 11.3 g/dL (11.0-16.0) 02/20/18 06:10 Hct 34.6 % (34.0-47.0) 02/20/18 06:10 MCV 80.2 fL (81.0-99.0) L 02/20/18 06:10 MCH 26.1 pg (27.0-31.0) L 02/20/18 06:10 MCHC 32.6 g/dL (33.0-37.0) L 02/20/18 06:10 RDW 16.0 % (11.5-14.5) H 02/20/18 06:10 Plt Count 169 K/uL (130-400) 02/20/18 06:10 MPV 8.0 fL (7.2-11.7) 02/20/18 06:10 Neut % (Auto) 68.1 % (50.0-75.0) 02/20/18 06:10 Lymph % (Auto) 20.1 % (20.0-40.0) 02/20/18 06:10 Williams % (Auto) 7.8 % (0.0-10.0) 02/20/18 06:10 Eos % (Auto) 3.7 % (0.0-4.0) 02/20/18 06:10 Baso % (Auto) 0.3 % (0.0-2.0) 02/20/18 06:10 Neut # (Auto) 6.2 K/uL (1.8-7.0) 02/20/18 06:10 Lymph # (Auto) 1.8 K/uL (1.0-4.3) 02/20/18 06:10 Williams # (Auto) 0.7 K/uL (0.0-0.8) 02/20/18 06:10 Eos # (Auto) 0.3 K/uL (0.0-0.7) 02/20/18 06:10 Baso # (Auto) 0.0 K/uL (0.0-0.2) 02/20/18 06:10 Neutrophils % (Manual) 88 % (50-75) H 02/16/18 07:04 Band Neutrophils % 1 % (0-2) 02/15/18 14:55 Lymphocytes % (Manual) 7 % (20-40) L 02/16/18 07:04 Monocytes % (Manual) 5 % (0-10) 02/16/18 07:04 Toxic Granulation Present 02/16/18 07:04 Platelet Estimate Normal (NORMAL) 02/16/18 07:04 Large Platelets Present 02/16/18 07:04 Polychromasia Slight 02/16/18 07:04 Hypochromasia (manual) Slight 02/16/18 07:04 Poikilocytosis (manual Slight 02/16/18 07:04 Anisocytosis (manual) Slight 02/16/18 07:04 Microcytosis (manual) Slight 02/15/18 14:55 Ovalocytes Slight 02/16/18 07:04 ESR 78 mm/hr (0-20) H 02/16/18 07:04 Puncture Site Lr 02/15/18 15:41 pCO2 50 mm/Hg (35-45) H 02/15/18 15:41 pO2 61 mm/Hg (80-100) L 02/15/18 15:41 HCO3 26.8 mmol/L (21-28) 02/15/18 15:41 ABG pH 7.37 (7.35-7.45) 02/15/18 15:41 ABG Total CO2 30.4 mmol/L (22-28) H 02/15/18 15:41 ABG O2 Saturation 96.0 % (95-98) 02/15/18 15:41 ABG Base Excess 2.7 mmol/L (-2.0-3.0) 02/15/18 15:41 Rob Test Po 02/15/18 15:41 ABG Potassium 3.9 mmol/L (3.6-5.2) 02/15/18 15:41 A-a O2 Difference 126.0 mm/Hg 02/15/18 15:41 Respiratory Index 2.1 02/15/18 15:41 Sodium 140.0 mmol/l (132-148) 02/15/18 15:41 Chloride 109.0 mmol/L (98-107) H 02/15/18 15:41 Glucose 170 mg/dl (65-105) H 02/15/18 15:41 Lactate 1.4 mmol/L (0.7-2.1) 02/15/18 15:41 FiO2 35.0 % 02/15/18 15:41 Sodium 140 mmol/L (132-148) 02/20/18 06:10 Potassium 4.1 mmol/L (3.6-5.2) 02/20/18 06:10 Chloride 100 mmol/L (98-107) 02/20/18 06:10 Carbon Dioxide 34 mmol/L (22-30) H 02/20/18 06:10 Anion Gap 10 (10-20) 02/20/18 06:10 BUN 13 mg/dL (7-17) 02/20/18 06:10 Creatinine 0.7 mg/dL (0.7-1.2) 02/20/18 06:10 Est GFR ( Amer) > 60 02/20/18 06:10 Est GFR (Non-Af Amer) > 60 02/20/18 06:10 POC Glucose (mg/dL) 192 mg/dL (65-110) H 02/20/18 11:30 Random Glucose 168 mg/dL (65-105) H D 02/20/18 06:10 Lactic Acid 0.9 mmol/L (0.7-2.1) 02/15/18 20:40 Calcium 9.2 mg/dl (8.6-10.4) 02/20/18 06:10 Phosphorus 2.4 mg/dL (2.5-4.5) L 02/15/18 14:55 Magnesium 1.5 mg/dL (1.6-2.3) L 02/15/18 14:55 Total Bilirubin 0.5 mg/dL (0.2-1.3) 02/15/18 14:55 AST 20 U/L (14-36) 02/15/18 14:55 ALT 12 U/L (9-52) 02/15/18 14:55 Alkaline Phosphatase 130 U/L (38-126) H 02/15/18 14:55 C-React Prot High Sens > 15.00 mg/L (1.00-3.00) H 02/16/18 07:04 Total Protein 7.5 g/dL (6.3-8.3) 02/15/18 14:55 Albumin 3.8 g/dL (3.5-5.0) 02/15/18 14:55 Globulin 3.8 gm/dL (2.2-3.9) 02/15/18 14:55 Albumin/Globulin Ratio 1.0 (1.0-2.1) 02/15/18 14:55 Arterial Blood Potassium 3.9 mmol/L (3.6-5.2) 02/15/18 15:41 Urine Color Yellow (YELLOW) 02/16/18 04:32 Urine Clarity Clear (Clear) 02/16/18 04:32 Urine pH 6.0 (5.0-8.0) 02/16/18 04:32 Ur Specific [place] 1.013 (1.003-1.030) 02/16/18 04:32 Urine Protein Negative mg/dL (NEGATIVE) 02/16/18 04:32 Urine Glucose (UA) 3+ mg/dL (Normal) H 02/16/18 04:32 Urine Ketones Negative mg/dL (NEGATIVE) 02/16/18 04:32 Urine Blood Negative (NEGATIVE) 02/16/18 04:32 Urine Nitrate Negative (NEGATIVE) 02/16/18 04:32 Urine Bilirubin Negative (NEGATIVE) 02/16/18 04:32 Urine Urobilinogen Normal mg/dL (0.2-1.0) 02/16/18 04:32 Ur Leukocyte Esterase Neg Brian/uL (Negative) 02/16/18 04:32 Urine WBC (Auto) 1 /hpf (0-5) 02/16/18 04:32 Urine RBC (Auto) 1 /hpf (0-3) 02/16/18 04:32 Ur Squamous Epith Cells < 1 /hpf (0-5) 02/16/18 04:32 Influenza Typ A,B (EIA) Negative for flu a/b (NEGATIVE) 02/15/18 15:16 Discharge Exam - Head Exam Head Exam: NORMAL INSPECTION Discharge Plan - Follow Up Plan Condition: GUARDED Disposition: HOME/ ROUTINE Instructions: Heart Failure, Adult (DC), Pneumonia, Adult (DC), Exacerbation of COPD (DC), How to Care for a Tracheostomy, Urinary Tract Infection in Women (DC), Sepsis (GEN) Additional Instructions: Please f/u with Dr. Khan office in 1 week Please continue home oxygen via trach collar Please continue medication as per med. rec.
--- NOTE | 2018-02-22 03:50 | DS ---
DISCHARGE DIAGNOSES: Pneumonia, exacerbation of bronchial asthma, hypertension, morbid obesity, type 2 diabetes, and major depression. HISTORY OF PRESENT ILLNESS AND HOSPITAL COURSE: This is a 62-year-old female well known to me with a history of morbid obesity, type 2 diabetes, hypertension, hyperlipidemia. She has long-term tracheostomy. She is on multiple medications and with multiple allergies. The patient came in because of cough, congestion, shortness of breath, and presumptive diagnosis of pneumonia. The patient's culture did not grow any organism. The patient was started on antibiotics, oxygen, Solu-Medrol, expectorant, Accu-Chek sliding scale medicine. The patient's condition started improving, she felt better, and subsequently she was discharged with outpatient followup. Condition upon discharge is stable. PHYSICAL EXAMINATION: VITAL SIGNS: Blood pressure 136/80, pulse 74, respiratory rate 20, and temperature 97. LUNGS: Decreased air entry. Positive rhonchi. CARDIOVASCULAR SYSTEM: S1 and S2, regular. ABDOMEN: Soft. The patient was discharged with outpatient followup. LABORATORY DATA: The patient's WBC 9.1, hemoglobin 11.3, hematocrit 34.6, platelets 169. Sodium 140, potassium 4.1, chloride 100, bicarb 34, BUN 13, creatinine 0.7. CONDITION UPON DISCHARGE: Stable. Ad Khan MD
== END 2018-02-20 16:30 | disposition home or self-care (01) | DRG 584 ==
LOC: C.ER 14:45 → C.9E 17:17 → C.6T 17:39
PROVIDERS: ADMIT Internal Medicine; ATTEND Internal Medicine
DX: A41.9 Sepsis, unspecified organism (principal); J18.9 Pneumonia, unspecified organism; I11.0 Hypertensive heart disease with heart failure; I50.9 Heart failure, unspecified; J44.0 Chronic obstructive pulmonary disease with (acute) lower respiratory infection; J44.1 Chronic obstructive pulmonary disease with (acute) exacerbation; J45.901 Unspecified asthma with (acute) exacerbation; N39.0 Urinary tract infection, site not specified; E11.9 Type 2 diabetes mellitus without complications; R65.20 Severe sepsis without septic shock; E66.01 Morbid (severe) obesity due to excess calories; E78.5 Hyperlipidemia, unspecified; F31.9 Bipolar disorder, unspecified; G47.30 Sleep apnea, unspecified; Z93.0 Tracheostomy status; Z90.49 Acquired absence of other specified parts of digestive tract; R51 Headache

== ENCOUNTER 2018-03-01 16:43 | Inpatient (IN) | payer OTHER ==
[2018-03-01 16:44] VITALS: BMI 47.0
--- NOTE | 2018-03-01 17:32 | C.PDOC ---
History Of Present Illness 62yo female, with history of severe COPD, multiple intubations and a tracheostomy, comes to ER reporting fever, and a productive cough with yellow sputum x 3 days. Patient also reports associated bodyaches. She denies any vomiting, diarrhea, abdominal pain or chest pain. She has no additional medical complaints. PMD: Time Seen by Provider: 03/01/18 16:45 Chief Complaint (Nursing): Flu-like Symptoms History Per: Patient History/Exam Limitations: no limitations Onset/Duration Of Symptoms: Days Current Symptoms Are (Timing): Still Present Location Of Pain: Diffuse Myalgias Associated Symptoms: Fever, Cough, Sputum, Myalgias Additional History Per: Patient Past Medical History Reviewed: Historical Data, Nursing Documentation, Vital Signs Vital Signs: Last Vital Signs Temp 99.8 F H 03/01/18 16:57 Pulse 107 H 03/01/18 16:57 Resp 14 03/01/18 16:57 BP 167/88 H 03/01/18 16:57 Pulse Ox 100 03/01/18 16:57 - Medical History PMH: Anxiety, Asthma, Bipolar Disorder, Bronchitis, CHF, COPD, Depression, Emphysema, Gall Bladder Disease, HTN, Pneumonia, Seizures, Sleep Apnea Denies: Arthritis, HIV, Hypercholesterolemia, Hypothyroidism, Chronic Kidney Disease, Rheumatoid Arthritis, Sexually Transmitted Disease Surgical History: Appendectomy, Cholecystectomy - [facility] Procedures ASSISTANCE WITH RESPIRATORY VENTILATION, <24 HRS, CPAP (03/14/16) CENTRAL VENOUS CATHETER PLACEMENT WITH GUIDANCE (10/24/14) CHANGE TRACHEOSTOMY DEVICE IN TRACHEA, EXTERNAL APPROACH (07/03/17) CONTINUOUS INVASIVE MECHANICAL VENTILATION <96 CONSEC HRS (03/07/14) DRAINAGE OF LUNG LINGULA, ENDO, DIAGN (11/30/17) ENTERAL INFUSION OF CONCENTRATED NUT. SUBSTANCES (09/17/12) INSERT ENDOTRACHEAL TUBE (09/17/12) INSERTION OF ENDOTRACHEAL AIRWAY INTO TRACHEA, VIA OPENING (06/12/17) INSERTION OF INFUSION DEV INTO SUP VENA CAVA, PERC APPROACH (11/13/17) INSERTION OF INFUSION DEVICE INTO UPPER VEIN, PERC APPROACH (10/04/17) INSPECTION OF LARYNX, ENDO (11/30/17) INTRODUCE OF OTH THERAP SUBST INTO RESP TRACT, VIA OPENING (05/03/15) INTRODUCTION OF NUTRITIONAL INTO UP GI, VIA OPENING (06/12/17) NEBULIZER THERAPY (09/17/12) REMOVAL OF TRACHEOSTOMY DEVICE FROM TRACHEA, WASTE MANAGEMENT ENGINEER APPROACH (06/12/17) RESPIRATORY VENTILATION, 24-96 CONSECUTIVE HOURS (11/13/17) RESPIRATORY VENTILATION, GREATER THAN 96 CONSECUTIVE HOURS (02/27/17) Family History: States: Unknown Family Hx - Social History Hx Tobacco Use: No Hx Alcohol Use: No Hx Substance Use: No - Immunization History Hx Tetanus Toxoid Vaccination: No Hx Influenza Vaccination: No Hx Pneumococcal Vaccination: No Review Of Systems Except As Marked, All Systems Reviewed And Found Negative. Constitutional: Positive for: Fever Cardiovascular: Negative for: Chest Pain Respiratory: Positive for: Cough, Sputum Gastrointestinal: Negative for: Vomiting, Abdominal Pain Genitourinary: Negative for: Dysuria, Hematuria Musculoskeletal: Negative for: Neck Pain Neurological: Negative for: Weakness, Numbness Physical Exam - Physical Exam Appears: Non-toxic Skin: Normal Color, Warm, Dry Head: Atraumatic, Normacephalic Eye(s): bilateral: Normal Inspection, PERRL, EOMI Oral Mucosa: Moist Throat: Other (tracheostomy tube in place) Neck: Normal ROM, Supple Chest: Symmetrical Cardiovascular: Rhythm Regular Respiratory: No Rales, No Rhonchi, Wheezing, Other (actively coughing) Gastrointestinal/Abdominal: Normal Exam, Soft Back: Normal Inspection Extremity: Normal ROM, No Deformity Neurological/Psych: Oriented x3 ED Course And Treatment - Laboratory Results Result Diagrams: 03/01/18 18:15 03/01/18 18:04 ECG: Interpreted By Me, Viewed By Wv ECG Rhythm: Sinus Rhythm ECG Interpretation: No Acute Changes Rate From EC O2 Sat by Pulse Oximetry: 100 (RA) Pulse Ox Interpretation: Normal - Radiology CXR: Interpreted by Me CXR Interpretation: Yes: COPD. No: Infiltrates Progress Note: CXR, labs, and rapid flu ordered. Albuterol 2.5mg INH x 2 and IV Solumedrol ordered. Patient negative for influenza. Case discussed with Dr. Khan, patient to be admitted to TELE-OBS. - Physician Consult Information Physician Contacted: Ad Khan Outcome Of Conversation: ACCEPTED TO TELE FOR OBSERVATION Disposition - Disposition Disposition: HOSPITALIZED Disposition Time: 18:58 Condition: FAIR Forms: [facility] ([place]) - Clinical Impression Clinical Impression: Chr obstructive pulmonary disease w/ acute lower respiratory infxn, Tracheostomy dependence - PA / SYSTEM ENGINEER / Resident Statement MD/DO has reviewed & agrees with the documentation as recorded. - Scribe Statement The provider has reviewed the documentation as recorded by the Tessibe Jeana Singh Provider Attestation: All medical record entries made by the Antonietta were at my direction and personally dictated by me. I have reviewed the chart and agree that the record accurately reflects my personal performance of the history, physical exam, medical decision making, and the department course for this patient. I have also personally directed, reviewed, and agree with the discharge instructions and disposition. Decision To Admit - Pt Status Changed To: Hospital Disposition Of: Observation - . Bed Request Type: Telemetry Admitting Physician: Ad Khan Patient Diagnosis: Chr obstructive pulmonary disease w/ acute lower respiratory infxn, Tracheostomy dependence
[2018-03-01] MEDS ORDERED: Albuterol 0.083% Inhal Sol (2.5 mg/3 mL) UD INH STA (17:35)
[2018-03-01 18:08] LABS: BASO # 0.1 K/uL (0.0-0.2); BASO % 0.4 % (0.0-2.0); EOS # 0.2 K/uL (0.0-0.7); EOS % 1.4 % (0.0-4.0); LYMPH # 1.5 K/uL (1.0-4.3); MEAN CELL VOLUME 80.2 fL (81.0-99.0); MEAN CORPUSCULAR HEMOGLOBIN 25.8 pg (27.0-31.0); MEAN CORPUSCULAR HGB CONC 32.1 g/dL (33.0-37.0); MONO # 0.8 K/uL (0.0-0.8); MONO % 5.7 % (0.0-10.0); NEUT # 11.3 K/uL (1.8-7.0); NEUT % 81.5 % (50.0-75.0); RBC 4.27 Mil/uL (3.80-5.20); RED CELL DISTRIBUTION WIDTH 15.6 % (11.5-14.5); WHITE BLOOD COUNT 13.9 K/uL (4.8-10.8)
[2018-03-01 18:36] LABS: ALBUMIN 4.1 g/dL (3.5-5.0); ALT/SGPT 16 U/L (9-52); AST/SGOT 21 U/L (14-36); BLOOD UREA NITROGEN 17 mg/dL (7-17); CALCIUM 9.2 mg/dl (8.6-10.4); GFR NON-AFRICAN AMERICAN > 60
[2018-03-01] MEDS ORDERED: Albuterol 0.083% Inhal Sol (2.5 mg/3 mL) UD ONE (18:52)
--- NOTE | 2018-03-01 19:47 | RAD ---
HISTORY: productive cough/fever COMPARISON: Chest x-ray performed 02/15/18 TECHNIQUE: Chest, one view. FINDINGS: Examination limited by habitus. Tracheostomy tube. LUNGS: Persistent patchy bilateral opacities predominantly involving the right upper, left hilar/infrahilar and left lower lobes. Mild pulmonary venous congestion. Please note that chest x-ray has limited sensitivity for the detection of pulmonary masses. PLEURA: No significant pleural effusion identified. No definite pneumothorax . CARDIOVASCULAR: Cardiomegaly. Atherosclerotic calcifications. OSSEOUS STRUCTURES: Degenerative changes of the spine. VISUALIZED UPPER ABDOMEN: Unremarkable. OTHER FINDINGS: None. IMPRESSION: Tracheostomy tube. Persistent patchy bilateral opacities involving the right upper, left hilar/infrahilar and left lower lobes. Mild pulmonary venous congestion. Correlate clinically and recommend continued follow-up to ensure complete resolution upon completion of treatment of acute symptoms.
[2018-03-01] MEDS ORDERED: Piperacillin/Tazobact 3.375 GM in Sodium Chloride 100 ML IVPB SCH (21:15)
[2018-03-01 21:47] VITALS: RESP 20
--- NOTE | 2018-03-01 21:50 | CP.PCM.HP ---
Past Patient History - Infectious Disease Hx of Infectious Diseases: None - Tetanus Immunizations Tetanus Immunization: Unknown - Past Medical History & Family History Past Medical History?: Yes - Past Social History Smoking Status: Unknown If Ever Smoked - CARDIAC Hx Congestive Heart Failure: Yes Hx Hypercholesterolemia: No Hx Hypertension: Yes - PULMONARY Hx Asthma: Yes Hx Bronchitis: Yes Hx Chronic Obstructive Pulmonary Disease (COPD): Yes Hx Emphysema: Yes Hx Pneumonia: Yes Hx Sleep Apnea: Yes - NEUROLOGICAL Hx Seizures: Yes - HEENT Hx HEENT Problems: Yes Hx Cataracts: Yes - RENAL Hx Chronic Kidney Disease: No - ENDOCRINE/METABOLIC Hx Hypothyroidism: No - HEMATOLOGICAL/ONCOLOGICAL Hx Human Immunodeficiency Virus (HIV): No - INTEGUMENTARY Hx Dermatological Problems: No - MUSCULOSKELETAL/RHEUMATOLOGICAL Hx Arthritis: No Hx Rheumatoid Arthritis: No - GASTROINTESTINAL Hx Gall Bladder Disease: Yes - GENITOURINARY/GYNECOLOGICAL Hx Sexually Transmitted Disorders: No - PSYCHIATRIC Hx Anxiety: Yes Hx Bipolar Disorder: Yes Hx Depression: Yes Hx Substance Use: No - SURGICAL HISTORY Hx Appendectomy: Yes Hx Cholecystectomy: Yes - ANESTHESIA Hx Anesthesia: Yes Hx Anesthesia Reactions: No Hx Malignant Hyperthermia: No Meds Allergies/Adverse Reactions: Allergies Allergy/AdvReac Type Severity Reaction Status Date / Time aspirin Allergy ANAPHYLAXIS Verified 03/01/18 16:56 ceftriaxone sodium Allergy ANAPHYLAXIS Verified 03/01/18 16:56 [From Rocephin] ibuprofen [From Motrin] Allergy ANAPHYLAXIS Verified 03/01/18 16:56 iodine Allergy ANAPHYLAXIS Verified 03/01/18 16:56 raspberry Allergy ANAPHYLAXIS Verified 03/01/18 16:56 Results - Vital Signs Recent Vital Signs: Last Vital Signs Temp 99.1 F 03/01/18 21:46 Pulse 99 H 03/01/18 21:46 Resp 20 03/01/18 21:46 BP 154/79 H 03/01/18 21:46 Pulse Ox 95 03/01/18 21:46 - Labs Result Diagrams: 03/01/18 18:15 03/01/18 18:04 Labs: Laboratory Results - last 24 hr 03/01/18 03/01/18 03/01/18 17:40 18:04 18:15 WBC 13.9 H D RBC 4.27 Hgb 11.0 Hct 34.2 MCV 80.2 L MCH 25.8 L MCHC 32.1 L RDW 15.6 H Plt Count 185 MPV 8.0 Neut % (Auto) 81.5 H Lymph % (Auto) 11.0 L [place] % (Auto) 5.7 Eos % (Auto) 1.4 Baso % (Auto) 0.4 Neut # (Auto) 11.3 H Lymph # (Auto) 1.5 [place] # (Auto) 0.8 Eos # (Auto) 0.2 Baso # (Auto) 0.1 Sodium 139 Potassium 4.3 Chloride 102 Carbon Dioxide 31 H Anion Gap 11 BUN 17 Creatinine 0.8 Est GFR ( Amer) > 60 Est GFR (Non-Af Amer) > 60 Random Glucose 275 H D Calcium 9.2 Total Bilirubin 0.4 AST 21 ALT 16 Alkaline Phosphatase 157 H D Total Protein 8.1 Albumin 4.1 Globulin 4.0 H Albumin/Globulin Ratio 1.0 Influenza Typ A,B (EIA) Negative for flu a/b
[2018-03-01] MEDS: MethylPREDNISolone 40 mg Vial IVP SCH (21:55)
[2018-03-01] MEDS ORDERED: QUEtiapine 200 mg XR Tab PO SCH (22:00)
[2018-03-01] MEDS: (Novolin R) Insulin Human Regular 100 units/ml vial SC SCH (22:59)
[2018-03-01] MEDS: Oxycodone/Acetaminophen 5/325 mg Tab PO PRN (23:04)
[2018-03-01] MEDS: (Lantus) Insulin Glargine, Recombinant SC SCH (23:05)
[2018-03-02] MEDS: Albuterol-Ipratrop 3 mg / 0.5 (3 ml) UD INH SCH ×6 (00:35→19:23)
[2018-03-02] MEDS: QUEtiapine 200 mg XR Tab PO SCH ×3 (02:06→22:24)
[2018-03-02] MEDS: Oxycodone/Acetaminophen 5/325 mg Tab PO PRN ×4 (07:19→22:22)
[2018-03-02] MEDS: (Novolin R) Insulin Human Regular 100 units/ml vial SC SCH ×4 (07:21→22:35)
[2018-03-02] MEDS: Moxifloxacin IV 400mg/250ml NS 400 MG/250 ML BAG IVPB SCH (10:08)
[2018-03-02] MEDS: guaiFENesin 600 mg ER Tab PO SCH ×3 (10:09→17:11)
[2018-03-02] MEDS: Pantoprazole 20 mg EC Tab PO SCH (10:09)
[2018-03-02] MEDS: MethylPREDNISolone 40 mg Vial IVP SCH ×2 (10:09→22:23)
[2018-03-02] MEDS: Enoxaparin 40 mg Syringe SC SCH (10:10)
--- NOTE | 2018-03-02 16:46 | CP.PCM.CON ---
History of Present Illness - History of Present Illness History of Present Illness: Reason for consultation: Shortness of breath and cough Patient is a 62 year old female with history of COPD, HTN, CHF, sp tracheostomy who Was admitted for shortness of breath associated with cough. Patient is trached and is on 3L of supplemental O2. Tracheostomy tube was suctioned multiple times with some secretions. status post bronchoscopy recently with copious secretions PMH: COPD, HTN, CHF, sp tracheostomy, anxiety, depression, seizures PSH: appendectomy, cholecystectomy, tracheostomy Social hx: no tobacco, alcohol or drug use. Allergies: ASA, Rocephn, Ibuprofen, Iodine, raspberry Review of Systems - Review of Systems All systems: reviewed and no additional remarkable complaints except (Shortness of breath and cough) Past Patient History - Infectious Disease Hx of Infectious Diseases: None - Tetanus Immunizations Tetanus Immunization: Unknown - Past Medical History & Family History Past Medical History?: Yes - Past Social History Smoking Status: Unknown If Ever Smoked - CARDIAC Hx Congestive Heart Failure: Yes Hx Hypercholesterolemia: No Hx Hypertension: Yes - PULMONARY Hx Asthma: Yes Hx Bronchitis: Yes Hx Chronic Obstructive Pulmonary Disease (COPD): Yes Hx Emphysema: Yes Hx Pneumonia: Yes Hx Sleep Apnea: Yes - NEUROLOGICAL Hx Seizures: Yes - HEENT Hx HEENT Problems: Yes Hx Cataracts: Yes - RENAL Hx Chronic Kidney Disease: No - ENDOCRINE/METABOLIC Hx Hypothyroidism: No - HEMATOLOGICAL/ONCOLOGICAL Hx Human Immunodeficiency Virus (HIV): No - INTEGUMENTARY Hx Dermatological Problems: No - MUSCULOSKELETAL/RHEUMATOLOGICAL Hx Arthritis: No Hx Rheumatoid Arthritis: No - GASTROINTESTINAL Hx Gall Bladder Disease: Yes - GENITOURINARY/GYNECOLOGICAL Hx Sexually Transmitted Disorders: No - PSYCHIATRIC Hx Anxiety: Yes Hx Bipolar Disorder: Yes Hx Depression: Yes Hx Substance Use: No - SURGICAL HISTORY Hx Appendectomy: Yes Hx Cholecystectomy: Yes - ANESTHESIA Hx Anesthesia: Yes Hx Anesthesia Reactions: No Hx Malignant Hyperthermia: No Meds Allergies/Adverse Reactions: Allergies Allergy/AdvReac Type Severity Reaction Status Date / Time aspirin Allergy ANAPHYLAXIS Verified 03/01/18 16:56 ceftriaxone sodium Allergy ANAPHYLAXIS Verified 03/01/18 16:56 [From Rocephin] ibuprofen [From Motrin] Allergy ANAPHYLAXIS Verified 03/01/18 16:56 iodine Allergy ANAPHYLAXIS Verified 03/01/18 16:56 raspberry Allergy ANAPHYLAXIS Verified 03/01/18 16:56 - Medications Medications: Current Medications Acetaminophen (Tylenol 325mg Tab) 650 mg PO Q6H PRN PRN Reason: Pain, Mild (1-3) Albuterol/Ipratropium (Duoneb 3 Mg/0.5 Mg (3 Ml) Ud) 3 ml INH RQ4 [facility] Last Admin: 03/02/18 15:47 Dose: 3 ml Enoxaparin Sodium (Lovenox) 40 mg SC DAILY [facility] Last Admin: 03/02/18 10:10 Dose: 40 mg Gabapentin (Neurontin) 800 mg PO TID [facility] Last Admin: 03/02/18 13:43 Dose: 800 mg Guaifenesin (Mucinex La) 600 mg PO TID [facility] Last Admin: 03/02/18 13:19 Dose: 600 mg Moxifloxacin HCl (Avelox Iv 400mg/250ml Ns) 400 mg in 250 mls @ 167 mls/hr IVPB Q24H [facility]; Protocol Last Admin: 03/02/18 10:08 Dose: 167 mls/hr Insulin Glargine (Lantus) 17 unit SC [facility] Last Admin: 03/01/18 23:05 Dose: 17 units Insulin Human Regular (Novolin R) 0 unit SC [facility]; Protocol Last Admin: 03/02/18 12:38 Dose: 5 unit Lorazepam (Ativan) 2 mg PO Q12H PRN PRN Reason: Anxiety Last Admin: 03/02/18 13:42 Dose: 2 mg Methylprednisolone (Solu-Medrol) 40 mg IVP Q12 [facility] Last Admin: 03/02/18 10:09 Dose: 40 mg Montelukast Sodium (Singulair) 10 mg PO [facility] Last Admin: 03/01/18 21:56 Dose: 10 mg Oxycodone/Acetaminophen (Percocet 5/325 Mg Tab) 1 tab PO Q4H PRN PRN Reason: Pain, severe (8-10) Stop: 03/04/18 21:00 Last Admin: 03/02/18 11:50 Dose: 1 tab Pantoprazole Sodium (Protonix Ec Tab) 20 mg PO DAILY [facility] Last Admin: 03/02/18 10:09 Dose: 20 mg Quetiapine Fumarate (Seroquel Xr) 400 mg PO Q12 [facility] Last Admin: 03/02/18 10:55 Dose: 400 mg Sertraline HCl (Zoloft) 100 mg PO BID [facility] Last Admin: 03/02/18 10:09 Dose: 100 mg Trazodone HCl (Desyrel) 150 mg PO [facility] Last Admin: 03/01/18 21:56 Dose: 150 mg Physical Exam - Head Exam Head Exam: ATRAUMATIC, NORMOCEPHALIC - ENT Exam ENT Exam: Mucous Membranes Moist - Respiratory Exam Respiratory Exam: Rales, Rhonchi, Wheezes Results - Vital Signs Recent Vital Signs: Last Vital Signs Temp 98.4 F 03/02/18 15:00 Pulse 82 03/02/18 15:00 Resp 20 03/02/18 15:00 BP 106/70 03/02/18 15:00 Pulse Ox 90 L 03/02/18 15:00 - Labs Result Diagrams: 03/03/18 09:16 03/03/18 09:16 Labs: Laboratory Results - last 24 hr 03/01/18 03/01/18 03/01/18 17:40 18:04 18:15 WBC 13.9 H D RBC 4.27 Hgb 11.0 Hct 34.2 MCV 80.2 L MCH 25.8 L MCHC 32.1 L RDW 15.6 H Plt Count 185 MPV 8.0 Neut % (Auto) 81.5 H Lymph % (Auto) 11.0 L [place] % (Auto) 5.7 Eos % (Auto) 1.4 Baso % (Auto) 0.4 Neut # (Auto) 11.3 H Lymph # (Auto) 1.5 [place] # (Auto) 0.8 Eos # (Auto) 0.2 Baso # (Auto) 0.1 Sodium 139 Potassium 4.3 Chloride 102 Carbon Dioxide 31 H Anion Gap 11 BUN 17 Creatinine 0.8 Est GFR ( Amer) > 60 Est GFR (Non-Af Amer) > 60 POC Glucose (mg/dL) Random Glucose 275 H D Calcium 9.2 Total Bilirubin 0.4 AST 21 ALT 16 Alkaline Phosphatase 157 H D Total Protein 8.1 Albumin 4.1 Globulin 4.0 H Albumin/Globulin Ratio 1.0 Influenza Typ A,B (EIA) Negative for flu a/b 03/01/18 03/02/18 03/02/18 21:43 06:18 11:26 WBC RBC Hgb Hct MCV MCH MCHC RDW Plt Count MPV Neut % (Auto) Lymph % (Auto) [place] % (Auto) Eos % (Auto) Baso % (Auto) Neut # (Auto) Lymph # (Auto) [place] # (Auto) Eos # (Auto) Baso # (Auto) Sodium Potassium Chloride Carbon Dioxide Anion Gap BUN Creatinine Est GFR ( Amer) Est GFR (Non-Af Amer) POC Glucose (mg/dL) 273 H 408 H* 364 H Random Glucose Calcium Total Bilirubin AST ALT Alkaline Phosphatase Total Protein Albumin Globulin Albumin/Globulin Ratio Influenza Typ A,B (EIA) Assessment & Plan (1) Chr obstructive pulmonary disease w/ acute lower respiratory infxn Status: Acute Comment: Continue antibiotics. Tracheostomy care. Culture and sensitivity. Nebulizer treatment. Follow-up chest x-ray (2) Tracheostomy dependence Status: Acute
--- NOTE | 2018-03-02 19:42 | CP.PCM.CON ---
History of Present Illness - History of Present Illness History of Present Illness: CC: Shortness of breath HPI: Patient is a 62 year old female with history of COPD, HTN, CHF, sp tracheostomy who presented for 3 day history of shortness of breath associated with fever, bodyaches. Cardiology consult for chest discomfort. PMH: COPD, HTN, CHF, sp tracheostomy, anxiety, depression, seizures PSH: appendectomy, cholecystectomy, tracheostomy Home meds: As per MAR, Trazodone, Protonix, Singulair, Seroquel, Gabapentin, Lantus Social hx: no tobacco, alcohol or drug use. Allergies: ASA, Rocephn, Ibuprofen, Iodine, raspberry Review Of Systems Except As Marked, All Systems Reviewed And Found Negative. Constitutional: Positive for: Fever Cardiovascular: Negative for: Chest Pain Respiratory: Positive for: Cough, Sputum Gastrointestinal: Negative for: Vomiting, Abdominal Pain Genitourinary: Negative for: Dysuria, Hematuria Musculoskeletal: Negative for: Neck Pain Neurological: Negative for: Weakness, Numbness Physical Exam - Physical Exam Appears: Non-toxic Skin: Normal Color, Warm, Dry Head: Atraumatic, Normacephalic Eye(s): bilateral: Normal Inspection, PERRL, EOMI Oral Mucosa: Moist Throat: Other (tracheostomy tube in place) Neck: Normal ROM, Supple Chest: Symmetrical Cardiovascular: Rhythm Regular Respiratory: No Rales, No Rhonchi, Wheezing, Other (actively coughing) Gastrointestinal/Abdominal: Normal Exam, Soft Back: Normal Inspection Extremity: Normal ROM, No Deformity Neurological/Psych: Oriented x3 Assessment & Plan (1) Respiratory distress Assessment and Plan: Patient is a 62 year old female with history of COPD, HTN, CHF, sp tracheostomy who presented for 3 day history of shortness of breath associated with fever, bodyaches. Cardiology consult for chest discomfort: Past Patient History - Infectious Disease Hx of Infectious Diseases: None - Tetanus Immunizations Tetanus Immunization: Unknown - Past Medical History & Family History Past Medical History?: Yes - Past Social History Smoking Status: Unknown If Ever Smoked - CARDIAC Hx Congestive Heart Failure: Yes Hx Hypercholesterolemia: No Hx Hypertension: Yes - PULMONARY Hx Asthma: Yes Hx Bronchitis: Yes Hx Chronic Obstructive Pulmonary Disease (COPD): Yes Hx Emphysema: Yes Hx Pneumonia: Yes Hx Sleep Apnea: Yes - NEUROLOGICAL Hx Seizures: Yes - HEENT Hx HEENT Problems: Yes Hx Cataracts: Yes - RENAL Hx Chronic Kidney Disease: No - ENDOCRINE/METABOLIC Hx Hypothyroidism: No - HEMATOLOGICAL/ONCOLOGICAL Hx Human Immunodeficiency Virus (HIV): No - INTEGUMENTARY Hx Dermatological Problems: No - MUSCULOSKELETAL/RHEUMATOLOGICAL Hx Arthritis: No Hx Rheumatoid Arthritis: No - GASTROINTESTINAL Hx Gall Bladder Disease: Yes - GENITOURINARY/GYNECOLOGICAL Hx Sexually Transmitted Disorders: No - PSYCHIATRIC Hx Anxiety: Yes Hx Bipolar Disorder: Yes Hx Depression: Yes Hx Substance Use: No - SURGICAL HISTORY Hx Appendectomy: Yes Hx Cholecystectomy: Yes - ANESTHESIA Hx Anesthesia: Yes Hx Anesthesia Reactions: No Hx Malignant Hyperthermia: No Meds Allergies/Adverse Reactions: Allergies Allergy/AdvReac Type Severity Reaction Status Date / Time aspirin Allergy ANAPHYLAXIS Verified 03/01/18 16:56 ceftriaxone sodium Allergy ANAPHYLAXIS Verified 03/01/18 16:56 [From Rocephin] ibuprofen [From Motrin] Allergy ANAPHYLAXIS Verified 03/01/18 16:56 iodine Allergy ANAPHYLAXIS Verified 03/01/18 16:56 raspberry Allergy ANAPHYLAXIS Verified 03/01/18 16:56 - Medications Medications: Current Medications Acetaminophen (Tylenol 325mg Tab) 650 mg PO Q6H PRN PRN Reason: Pain, Mild (1-3) Albuterol/Ipratropium (Duoneb 3 Mg/0.5 Mg (3 Ml) Ud) 3 ml INH RQ4 [facility] Last Admin: 03/02/18 19:23 Dose: 3 ml Enoxaparin Sodium (Lovenox) 40 mg SC DAILY [facility] Last Admin: 03/02/18 10:10 Dose: 40 mg Gabapentin (Neurontin) 800 mg PO TID [facility] Last Admin: 03/02/18 17:13 Dose: 800 mg Guaifenesin (Mucinex La) 600 mg PO TID [facility] Last Admin: 03/02/18 17:11 Dose: 600 mg Moxifloxacin HCl (Avelox Iv 400mg/250ml Ns) 400 mg in 250 mls @ 167 mls/hr IVPB Q24H [facility]; Protocol Last Admin: 03/02/18 10:08 Dose: 167 mls/hr Insulin Glargine (Lantus) 17 unit SC HS [facility] Last Admin: 03/01/18 23:05 Dose: 17 units Insulin Human Regular (Novolin R) 0 unit SC [facility]S [facility]; Protocol Last Admin: 03/02/18 17:12 Dose: 6 unit Lorazepam (Ativan) 2 mg PO Q12H PRN PRN Reason: Anxiety Last Admin: 03/02/18 13:42 Dose: 2 mg Methylprednisolone (Solu-Medrol) 40 mg IVP Q12 [facility] Last Admin: 03/02/18 10:09 Dose: 40 mg Montelukast Sodium (Singulair) 10 mg PO HS [facility] Last Admin: 03/01/18 21:56 Dose: 10 mg Oxycodone/Acetaminophen (Percocet 5/325 Mg Tab) 1 tab PO Q4H PRN PRN Reason: Pain, severe (8-10) Stop: 03/04/18 21:00 Last Admin: 03/02/18 17:11 Dose: 1 tab Pantoprazole Sodium (Protonix Ec Tab) 20 mg PO DAILY [facility] Last Admin: 03/02/18 10:09 Dose: 20 mg Quetiapine Fumarate (Seroquel Xr) 400 mg PO Q12 [facility] Last Admin: 03/02/18 10:55 Dose: 400 mg Sertraline HCl (Zoloft) 100 mg PO BID [facility] Last Admin: 03/02/18 17:11 Dose: 100 mg Trazodone HCl (Desyrel) 150 mg PO [facility] Last Admin: 03/01/18 21:56 Dose: 150 mg Results - Vital Signs Recent Vital Signs: Last Vital Signs Temp 98.4 F 03/02/18 15:00 Pulse 82 03/02/18 15:00 Resp 20 03/02/18 15:00 BP 106/70 03/02/18 15:00 Pulse Ox 90 L 03/02/18 15:00 - Labs Result Diagrams: 03/01/18 18:15 03/01/18 18:04 Labs: Laboratory Results - last 24 hr 03/01/18 03/02/18 03/02/18 21:43 06:18 11:26 POC Glucose (mg/dL) 273 H 408 H* 364 H 03/02/18 16:39 POC Glucose (mg/dL) 419 H* Assessment & Plan - Assessment and Plan (Free Text) Assessment: (1) COPD Assessment and Plan: Patient is a 62 year old female with history of COPD, HTN, CHF, sp tracheostomy (2) Diastolic CHF Assessment and Plan: Lasix as needed (3) HTN Assessment and Plan: Controlled
[2018-03-02] MEDS: (Lantus) Insulin Glargine, Recombinant SC SCH (22:34)
[2018-03-03] MEDS: Albuterol-Ipratrop 3 mg / 0.5 (3 ml) UD INH SCH ×6 (00:33→19:14)
[2018-03-03] MEDS: Oxycodone/Acetaminophen 5/325 mg Tab PO PRN ×5 (02:33→22:39)
[2018-03-03] MEDS: Moxifloxacin IV 400mg/250ml NS 400 MG/250 ML BAG IVPB SCH (08:23)
[2018-03-03] MEDS: (Novolin R) Insulin Human Regular 100 units/ml vial SC SCH ×4 (08:24→22:40)
[2018-03-03 09:25] LABS: BASO # 0.2 K/uL (0.0-0.2); BASO % 1.2 % (0.0-2.0); EOS % 0.1 % (0.0-4.0); HEMOGLOBIN 10.7 g/dL (11.0-16.0); LYMPH # 1.7 K/uL (1.0-4.3); LYMPH % 12.3 % (20.0-40.0); MEAN CELL VOLUME 80.6 fL (81.0-99.0); MEAN CORPUSCULAR HGB CONC 32.3 g/dL (33.0-37.0); MEAN PLATELET VOLUME 8.8 fL (7.2-11.7); MONO # 0.7 K/uL (0.0-0.8); MONO % 4.9 % (0.0-10.0); NEUT # 11.4 K/uL (1.8-7.0); NEUT % 81.5 % (50.0-75.0); RBC 4.12 Mil/uL (3.80-5.20); RED CELL DISTRIBUTION WIDTH 15.2 % (11.5-14.5)
[2018-03-03 09:49] LABS: ALT/SGPT 13 U/L (9-52); AST/SGOT 17 U/L (14-36); BLOOD UREA NITROGEN 28 mg/dL (7-17); GFR NON-AFRICAN AMERICAN > 60
[2018-03-03] MEDS: Enoxaparin 40 mg Syringe SC SCH (10:07)
[2018-03-03] MEDS: MethylPREDNISolone 40 mg Vial IVP SCH ×2 (10:07→22:40)
[2018-03-03] MEDS: QUEtiapine 200 mg XR Tab PO SCH ×2 (10:08→22:51)
[2018-03-03] MEDS: Pantoprazole 20 mg EC Tab PO SCH (10:08)
[2018-03-03] MEDS: guaiFENesin 600 mg ER Tab PO SCH ×3 (10:08→18:10)
--- NOTE | 2018-03-03 19:35 | CP.PCM.PN ---
Subjective - Date & Time of Evaluation Date of Evaluation: 03/03/18 Time of Evaluation: 19:34 - Subjective Subjective: Patient seen and evaluated Breathing slightly better Review Of Systems Except As Marked, All Systems Reviewed And Found Negative. Constitutional: Positive for: Fever Cardiovascular: Negative for: Chest Pain Respiratory: Positive for: Cough, Sputum Gastrointestinal: Negative for: Vomiting, Abdominal Pain Genitourinary: Negative for: Dysuria, Hematuria Musculoskeletal: Negative for: Neck Pain Neurological: Negative for: Weakness, Numbness Physical Exam - Physical Exam Appears: Non-toxic Skin: Normal Color, Warm, Dry Head: Atraumatic, Normacephalic Eye(s): bilateral: Normal Inspection, PERRL, EOMI Oral Mucosa: Moist Throat: Other (tracheostomy tube in place) Neck: Normal ROM, Supple Chest: Symmetrical Cardiovascular: Rhythm Regular Respiratory: No Rales, No Rhonchi, Wheezing, Other (actively coughing) Gastrointestinal/Abdominal: Normal Exam, Soft Back: Normal Inspection Extremity: Normal ROM, No Deformity Neurological/Psych: Oriented x3 Assessment & Plan - Assessment and Plan (Free Text) Assessment: (1) COPD Assessment and Plan: Patient is a 62 year old female with history of COPD, HTN, CHF, sp tracheostomy (2) Diastolic CHF Assessment and Plan: Lasix as needed (3) HTN Assessment and Plan: Controlled Objective - Vital Signs/Intake and Output Vital Signs (last 24 hours): Temp Pulse Resp BP Pulse Ox 98.8 F 81 20 106/67 92 L 03/03/18 15:00 03/03/18 15:00 03/03/18 15:00 03/03/18 15:00 03/03/18 15:00 Intake and Output: 03/03/18 03/04/18 18:59 06:59 Intake Total 450 Balance 450 - Medications Medications: Current Medications Acetaminophen (Tylenol 325mg Tab) 650 mg PO Q6H PRN PRN Reason: Pain, Mild (1-3) Albuterol/Ipratropium (Duoneb 3 Mg/0.5 Mg (3 Ml) Ud) 3 ml INH RQ4 [facility] Last Admin: 03/03/18 19:14 Dose: 3 ml Enoxaparin Sodium (Lovenox) 40 mg SC DAILY [facility] Last Admin: 03/03/18 10:07 Dose: 40 mg Gabapentin (Neurontin) 800 mg PO TID [facility] Last Admin: 03/03/18 18:10 Dose: 800 mg Guaifenesin (Mucinex La) 600 mg PO TID [facility] Last Admin: 03/03/18 18:10 Dose: 600 mg Moxifloxacin HCl (Avelox Iv 400mg/250ml Ns) 400 mg in 250 mls @ 167 mls/hr IVPB Q24H [facility]; Protocol Last Admin: 03/03/18 08:23 Dose: 167 mls/hr Insulin Glargine (Lantus) 17 unit SC [facility] Last Admin: 03/02/18 22:34 Dose: 17 units Insulin Human Regular (Novolin R) 0 unit SC [facility]; Protocol Last Admin: 03/03/18 18:10 Dose: 3 unit Lorazepam (Ativan) 2 mg PO Q12H PRN PRN Reason: Anxiety Last Admin: 03/02/18 22:24 Dose: 2 mg Methylprednisolone (Solu-Medrol) 40 mg IVP Q12 [facility] Last Admin: 03/03/18 10:07 Dose: 40 mg Montelukast Sodium (Singulair) 10 mg PO [facility] Last Admin: 03/02/18 22:21 Dose: 10 mg Oxycodone/Acetaminophen (Percocet 5/325 Mg Tab) 1 tab PO Q4H PRN PRN Reason: Pain, severe (8-10) Stop: 03/04/18 21:00 Last Admin: 03/03/18 18:22 Dose: 1 tab Pantoprazole Sodium (Protonix Ec Tab) 20 mg PO DAILY [facility] Last Admin: 03/03/18 10:08 Dose: 20 mg Quetiapine Fumarate (Seroquel Xr) 400 mg PO Q12 [facility] Last Admin: 03/03/18 10:08 Dose: 400 mg Sertraline HCl (Zoloft) 100 mg PO BID [facility] Last Admin: 03/03/18 18:10 Dose: 100 mg Trazodone HCl (Desyrel) 150 mg PO [facility] Last Admin: 03/02/18 22:21 Dose: 150 mg - Labs Labs: 03/03/18 09:16 03/03/18 09:16
--- NOTE | 2018-03-03 20:52 | CP.PCM.PN ---
Subjective - Subjective Subjective: dictated Objective - Vital Signs/Intake and Output Vital Signs (last 24 hours): Temp Pulse Resp BP Pulse Ox 98.8 F 81 20 106/67 92 L 03/03/18 15:00 03/03/18 15:00 03/03/18 15:00 03/03/18 15:00 03/03/18 15:00 Intake and Output: 03/03/18 03/04/18 18:59 06:59 Intake Total 450 Balance 450 - Medications Medications: Current Medications Acetaminophen (Tylenol 325mg Tab) 650 mg PO Q6H PRN PRN Reason: Pain, Mild (1-3) Albuterol/Ipratropium (Duoneb 3 Mg/0.5 Mg (3 Ml) Ud) 3 ml INH RQ4 [facility] Last Admin: 03/03/18 19:14 Dose: 3 ml Enoxaparin Sodium (Lovenox) 40 mg SC DAILY [facility] Last Admin: 03/03/18 10:07 Dose: 40 mg Gabapentin (Neurontin) 800 mg PO TID [facility] Last Admin: 03/03/18 18:10 Dose: 800 mg Guaifenesin (Mucinex La) 600 mg PO TID [facility] Last Admin: 03/03/18 18:10 Dose: 600 mg Moxifloxacin HCl (Avelox Iv 400mg/250ml Ns) 400 mg in 250 mls @ 167 mls/hr IVPB Q24H [facility]; Protocol Last Admin: 03/03/18 08:23 Dose: 167 mls/hr Insulin Glargine (Lantus) 17 unit SC [facility] Last Admin: 03/02/18 22:34 Dose: 17 units Insulin Human Regular (Novolin R) [address] [facility]; Protocol Last Admin: 03/03/18 18:10 Dose: 3 unit Lorazepam (Ativan) 2 mg PO Q12H PRN PRN Reason: Anxiety Last Admin: 03/02/18 22:24 Dose: 2 mg Methylprednisolone (Solu-Medrol) 40 mg IVP Q12 [facility] Last Admin: 03/03/18 10:07 Dose: 40 mg Montelukast Sodium (Singulair) 10 mg PO HS [facility] Last Admin: 03/02/18 22:21 Dose: 10 mg Oxycodone/Acetaminophen (Percocet 5/325 Mg Tab) 1 tab PO Q4H PRN PRN Reason: Pain, severe (8-10) Stop: 03/04/18 21:00 Last Admin: 03/03/18 18:22 Dose: 1 tab Pantoprazole Sodium (Protonix Ec Tab) 20 mg PO DAILY [facility] Last Admin: 03/03/18 10:08 Dose: 20 mg Quetiapine Fumarate (Seroquel Xr) 400 mg PO Q12 [facility] Last Admin: 03/03/18 10:08 Dose: 400 mg Sertraline HCl (Zoloft) 100 mg PO BID [facility] Last Admin: 03/03/18 18:10 Dose: 100 mg Trazodone HCl (Desyrel) 150 mg PO HS [facility] Last Admin: 03/02/18 22:21 Dose: 150 mg - Labs Labs: 03/03/18 09:16 03/03/18 09:16
[2018-03-03] MEDS: (Lantus) Insulin Glargine, Recombinant SC SCH (22:40)
[2018-03-04] MEDS: Albuterol-Ipratrop 3 mg / 0.5 (3 ml) UD INH SCH ×6 (00:05→21:06)
--- NOTE | 2018-03-04 02:25 | PN ---
DATE: 03/03/2017 SUBJECTIVE: The patient has less cough, less shortness of breath, afebrile. PHYSICAL EXAMINATION: VITAL SIGNS: Blood pressure 106/67, pulse 81, respiratory rate 20, and temperature 98.8. LUNGS: Bilateral inspiratory and expiratory rhonchi. Decreased air entry. Positive crackles. CVS: S1 and S2. Regular. ABDOMEN: Soft. Nontender. Bowel sounds are positive. ASSESSMENT: 1. Exacerbation of bronchial asthma. 2. Bronchopneumonia, the patient has patchy opacity. 3. Diabetes. 4. Depression. PLAN: Continue antibiotics, suctioning. Monitor the patient. Ad Khan MD
[2018-03-04 06:29] LABS: BASO # 0.1 K/uL (0.0-0.2); BASO % 0.4 % (0.0-2.0); HEMOGLOBIN 11.4 g/dL (11.0-16.0); LYMPH # 1.2 K/uL (1.0-4.3); LYMPH % 10.7 % (20.0-40.0); MEAN CELL VOLUME 80.8 fL (81.0-99.0); MEAN CORPUSCULAR HEMOGLOBIN 25.9 pg (27.0-31.0); MEAN CORPUSCULAR HGB CONC 32.1 g/dL (33.0-37.0); MEAN PLATELET VOLUME 8.7 fL (7.2-11.7); MONO # 0.5 K/uL (0.0-0.8); MONO % 4.1 % (0.0-10.0); NEUT # 9.7 K/uL (1.8-7.0); NEUT % 84.8 % (50.0-75.0); RBC 4.41 Mil/uL (3.80-5.20); RED CELL DISTRIBUTION WIDTH 15.1 % (11.5-14.5); WHITE BLOOD COUNT 11.5 K/uL (4.8-10.8)
[2018-03-04 06:50] LABS: ALBUMIN 4.1 g/dL (3.5-5.0); ALT/SGPT 14 U/L (9-52); AST/SGOT 30 U/L (14-36); BLOOD UREA NITROGEN 26 mg/dL (7-17); CALCIUM 9.3 mg/dl (8.6-10.4); GFR NON-AFRICAN AMERICAN 57
[2018-03-04] MEDS: (Novolin R) Insulin Human Regular 100 units/ml vial SC SCH ×4 (08:15→21:59)
[2018-03-04] MEDS: Oxycodone/Acetaminophen 5/325 mg Tab PO PRN ×2 (08:45→17:00)
[2018-03-04] MEDS: Moxifloxacin IV 400mg/250ml NS 400 MG/250 ML BAG IVPB SCH (08:47)
[2018-03-04] MEDS: Pantoprazole 20 mg EC Tab PO SCH (10:04)
[2018-03-04] MEDS: MethylPREDNISolone 40 mg Vial IVP SCH ×2 (10:04→22:43)
[2018-03-04] MEDS: Enoxaparin 40 mg Syringe SC SCH (10:04)
[2018-03-04] MEDS: guaiFENesin 600 mg ER Tab PO SCH ×3 (10:04→17:00)
[2018-03-04] MEDS: QUEtiapine 200 mg XR Tab PO SCH ×2 (10:08→21:57)
--- NOTE | 2018-03-04 12:23 | CARD ---
APPROVED REPORT Date of service: 03/01/2018 EKG Measurement Heart [id number] <Conclusion> Normal sinus rhythm Normal ECG
--- NOTE | 2018-03-04 15:57 | CP.PCM.PN ---
<Deandre Wynn - Last Filed: 03/04/18 15:40> Subjective - Date & Time of Evaluation Date of Evaluation: 03/04/18 Time of Evaluation: 15:40 - Subjective Subjective: Pulmonology note for Dr. Rosado Patient seen and examined this morning at bedside. Patient appears slightly anxious but otherwise resting comfortably on bed. She admits to persistent cough, congestion/mucus build up around the trach and associated throat discomfort. Currently denies fever, chills, chest pain, hemoptysis, n/v. Exam: General: No acute distress. AAOx3. Neck: Trach in place. Cardio: Regular rate and rhythm, no murmurs/rubs/gallops Lungs: Bilateral rales and rhonchi present (actively coughing Abd: Obese, soft, non-tender Objective - Vital Signs/Intake and Output Vital Signs (last 24 hours): Temp Pulse Resp BP Pulse Ox 98.2 F 75 20 131/83 99 03/04/18 10:17 03/04/18 12:00 03/04/18 10:17 03/04/18 10:17 03/04/18 10:17 Intake and Output: 03/04/18 03/04/18 06:59 18:59 Intake Total 350 Balance 350 - Medications Medications: Current Medications Acetaminophen (Tylenol 325mg Tab) 650 mg PO Q6H PRN PRN Reason: Pain, Mild (1-3) Albuterol/Ipratropium (Duoneb 3 Mg/0.5 Mg (3 Ml) Ud) 3 ml INH RQ4 [facility] Last Admin: 03/04/18 11:50 Dose: 3 ml Enoxaparin Sodium (Lovenox) 40 mg SC DAILY [facility] Last Admin: 03/04/18 10:04 Dose: 40 mg Gabapentin (Neurontin) 800 mg PO TID [facility] Last Admin: 03/04/18 13:16 Dose: 800 mg Guaifenesin (Mucinex La) 600 mg PO TID [facility] Last Admin: 03/04/18 13:16 Dose: 600 mg Moxifloxacin HCl (Avelox Iv 400mg/250ml Ns) 400 mg in 250 mls @ 167 mls/hr IVPB Q24H [facility]; Protocol Last Admin: 03/04/18 08:47 Dose: 167 mls/hr Insulin Glargine (Lantus) 17 unit SC HS [facility] Last Admin: 03/03/18 22:40 Dose: 17 units Insulin Human Regular (Novolin R) 0 unit SC [facility]; Protocol Last Admin: 03/04/18 12:30 Dose: 2 unit Lorazepam (Ativan) 2 mg PO Q12H PRN PRN Reason: Anxiety Last Admin: 03/02/18 22:24 Dose: 2 mg Methylprednisolone (Solu-Medrol) 40 mg IVP Q12 [facility] Last Admin: 03/04/18 10:04 Dose: 40 mg Montelukast Sodium (Singulair) 10 mg PO [facility] Last Admin: 03/03/18 22:39 Dose: 10 mg Oxycodone/Acetaminophen (Percocet 5/325 Mg Tab) 1 tab PO Q4H PRN PRN Reason: Pain, severe (8-10) Stop: 03/04/18 21:00 Last Admin: 03/04/18 08:45 Dose: 1 tab Pantoprazole Sodium (Protonix Ec Tab) 20 mg PO DAILY [facility] Last Admin: 03/04/18 10:04 Dose: 20 mg Quetiapine Fumarate (Seroquel Xr) 400 mg PO Q12 [facility] Last Admin: 03/04/18 10:08 Dose: 400 mg Sertraline HCl (Zoloft) 100 mg PO BID [facility] Last Admin: 03/04/18 10:04 Dose: 100 mg Trazodone HCl (Desyrel) 150 mg PO [facility] Last Admin: 03/03/18 22:39 Dose: 150 mg - Labs Labs: 03/04/18 06:24 03/04/18 06:24 Assessment and Plan (1) Chr obstructive pulmonary disease w/ acute lower respiratory infxn Assessment & Plan: Repeat CXR pending Continue antibiotics Tracheostomy care blood cultures negative at 48 hours Moxifloxacin 400mg IVPB q24h Duonebs Mucinex Solumedrol Singulair Status: Acute (2) Tracheostomy dependence Status: Acute <Rodo Rosado - Last Filed: 03/04/18 18:15> Objective - Vital Signs/Intake and Output Vital Signs (last 24 hours): Temp Pulse Resp BP Pulse Ox 98.2 F 75 20 131/83 99 03/04/18 10:17 03/04/18 12:00 03/04/18 10:17 03/04/18 10:17 03/04/18 10:17 Intake and Output: 03/04/18 03/04/18 06:59 18:59 Intake Total 350 Balance 350 - Medications Medications: Current Medications Acetaminophen (Tylenol 325mg Tab) 650 mg PO Q6H PRN PRN Reason: Pain, Mild (1-3) Albuterol/Ipratropium (Duoneb 3 Mg/0.5 Mg (3 Ml) Ud) 3 ml INH RQ4 [facility] Last Admin: 03/04/18 16:51 Dose: 3 ml Enoxaparin Sodium (Lovenox) 40 mg SC DAILY [facility] Last Admin: 03/04/18 10:04 Dose: 40 mg Gabapentin (Neurontin) 800 mg PO TID [facility] Last Admin: 03/04/18 17:00 Dose: 800 mg Guaifenesin (Mucinex La) 600 mg PO TID [facility] Last Admin: 03/04/18 17:00 Dose: 600 mg Moxifloxacin HCl (Avelox Iv 400mg/250ml Ns) 400 mg in 250 mls @ 167 mls/hr IVPB Q24H [facility]; Protocol Last Admin: 03/04/18 08:47 Dose: 167 mls/hr Insulin Glargine (Lantus) 17 unit SC HS [facility] Last Admin: 03/03/18 22:40 Dose: 17 units Insulin Human Regular (Novolin R) 0 unit SC [facility]; Protocol Last Admin: 03/04/18 17:19 Dose: 4 unit Lorazepam (Ativan) 2 mg PO Q12H PRN PRN Reason: Anxiety Last Admin: 03/04/18 17:00 Dose: 2 mg Methylprednisolone (Solu-Medrol) 40 mg IVP Q12 [facility] Last Admin: 03/04/18 10:04 Dose: 40 mg Montelukast Sodium (Singulair) 10 mg PO HS [facility] Last Admin: 03/03/18 22:39 Dose: 10 mg Oxycodone/Acetaminophen (Percocet 5/325 Mg Tab) 1 tab PO Q4H PRN PRN Reason: Pain, severe (8-10) Stop: 03/04/18 21:00 Last Admin: 03/04/18 17:00 Dose: 1 tab Pantoprazole Sodium (Protonix Ec Tab) 20 mg PO DAILY [facility] Last Admin: 03/04/18 10:04 Dose: 20 mg Quetiapine Fumarate (Seroquel Xr) 400 mg PO Q12 [facility] Last Admin: 03/04/18 10:08 Dose: 400 mg Sertraline HCl (Zoloft) 100 mg PO BID [facility] Last Admin: 03/04/18 17:00 Dose: 100 mg Trazodone HCl (Desyrel) 150 mg PO HS [facility] Last Admin: 03/03/18 22:39 Dose: 150 mg - Labs Labs: 03/04/18 06:24 03/04/18 06:24 Assessment and Plan (1) Chr obstructive pulmonary disease w/ acute lower respiratory infxn Status: Acute (2) Tracheostomy dependence Status: Acute Attending/Attestation - Attestation I have personally seen and examined this patient.: Yes I have fully participated in the care of the patient.: Yes I have reviewed all pertinent clinical information, including history, physical exam and plan: Yes Notes (Text): 03/04/18 18:15 Patient seen and examined Continue present treatment
--- NOTE | 2018-03-04 17:01 | RAD ---
Date of service: 03/04/2018 HISTORY: follow up COMPARISON: Comparison chest 03/01/18. FINDINGS: In situ tracheostomy tube in good position LUNGS: Poor inspiration with low lung volumes, crowded bronchovascular markings and bibasilar atelectasis left greater than right.. Developing left lower lobe infiltrate could be excluded with follow-up radiographs. PLEURA: No significant pleural effusion identified, no pneumothorax apparent. CARDIOVASCULAR: No aortic atherosclerotic calcification present. Normal cardiac size. No pulmonary vascular congestion. OSSEOUS STRUCTURES: No significant abnormalities. VISUALIZED UPPER ABDOMEN: Normal. OTHER FINDINGS: None. IMPRESSION: Poor inspiration with low lung volumes, crowded bronchovascular markings and bibasilar atelectasis left greater than right.. Developing left lower lobe infiltrate could be excluded with follow-up radiographs.
[2018-03-04] MEDS: (Lantus) Insulin Glargine, Recombinant SC SCH (21:58)
--- NOTE | 2018-03-04 22:45 | CP.PCM.PN ---
Subjective - Subjective Subjective: dictated Objective - Vital Signs/Intake and Output Vital Signs (last 24 hours): Temp Pulse Resp BP Pulse Ox 97.7 F 84 20 110/73 99 03/04/18 15:04 03/04/18 20:00 03/04/18 15:04 03/04/18 15:04 03/04/18 15:04 Intake and Output: 03/04/18 03/05/18 18:59 06:59 Intake Total 350 350 Balance 350 350 - Medications Medications: Current Medications Acetaminophen (Tylenol 325mg Tab) 650 mg PO Q6H PRN PRN Reason: Pain, Mild (1-3) Albuterol/Ipratropium (Duoneb 3 Mg/0.5 Mg (3 Ml) Ud) 3 ml INH RQ4 [facility] Last Admin: 03/04/18 21:06 Dose: 3 ml Enoxaparin Sodium (Lovenox) 40 mg SC DAILY [facility] Last Admin: 03/04/18 10:04 Dose: 40 mg Gabapentin (Neurontin) 800 mg PO TID [facility] Last Admin: 03/04/18 17:00 Dose: 800 mg Guaifenesin (Mucinex La) 600 mg PO TID [facility] Last Admin: 03/04/18 17:00 Dose: 600 mg Moxifloxacin HCl (Avelox Iv 400mg/250ml Ns) 400 mg in 250 mls @ 167 mls/hr IVPB Q24H [facility]; Protocol Last Admin: 03/04/18 08:47 Dose: 167 mls/hr Insulin Glargine (Lantus) 17 unit SC [facility] Last Admin: 03/04/18 21:58 Dose: 17 units Insulin Human Regular (Novolin R) 0 unit SC [facility]; Protocol Last Admin: 03/04/18 21:59 Dose: Not Given Lorazepam (Ativan) 2 mg PO Q12H PRN PRN Reason: Anxiety Last Admin: 03/04/18 17:00 Dose: 2 mg Methylprednisolone (Solu-Medrol) 40 mg IVP Q12 [facility] Last Admin: 03/04/18 22:43 Dose: Not Given Montelukast Sodium (Singulair) 10 mg PO HS [facility] Last Admin: 03/04/18 21:58 Dose: 10 mg Pantoprazole Sodium (Protonix Ec Tab) 20 mg PO DAILY [facility] Last Admin: 03/04/18 10:04 Dose: 20 mg Quetiapine Fumarate (Seroquel Xr) 400 mg PO Q12 [facility] Last Admin: 03/04/18 21:57 Dose: 400 mg Sertraline HCl (Zoloft) 100 mg PO BID [facility] Last Admin: 03/04/18 17:00 Dose: 100 mg Trazodone HCl (Desyrel) 150 mg PO HS [facility] Last Admin: 03/04/18 21:58 Dose: 150 mg - Labs Labs: 03/04/18 06:24 03/04/18 06:24
--- NOTE | 2018-03-04 23:47 | CP.PCM.PN ---
Subjective - Date & Time of Evaluation Date of Evaluation: 03/04/18 Time of Evaluation: 19:30 - Subjective Subjective: patient seen and evaluated personally by me Patient with improved breathing Will follow Objective - Vital Signs/Intake and Output Vital Signs (last 24 hours): Temp Pulse Resp BP Pulse Ox 97.7 F 84 20 110/73 99 03/04/18 15:04 03/04/18 20:00 03/04/18 15:04 03/04/18 15:04 03/04/18 15:04 Intake and Output: 03/04/18 03/05/18 18:59 06:59 Intake Total 350 350 Balance 350 350 - Medications Medications: Current Medications Acetaminophen (Tylenol 325mg Tab) 650 mg PO Q6H PRN PRN Reason: Pain, Mild (1-3) Albuterol/Ipratropium (Duoneb 3 Mg/0.5 Mg (3 Ml) Ud) 3 ml INH RQ4 [facility] Last Admin: 03/04/18 21:06 Dose: 3 ml Enoxaparin Sodium (Lovenox) 40 mg SC DAILY [facility] Last Admin: 03/04/18 10:04 Dose: 40 mg Gabapentin (Neurontin) 800 mg PO TID [facility] Last Admin: 03/04/18 17:00 Dose: 800 mg Guaifenesin (Mucinex La) 600 mg PO TID [facility] Last Admin: 03/04/18 17:00 Dose: 600 mg Moxifloxacin HCl (Avelox Iv 400mg/250ml Ns) 400 mg in 250 mls @ 167 mls/hr IVPB Q24H [facility]; Protocol Last Admin: 03/04/18 08:47 Dose: 167 mls/hr Insulin Glargine (Lantus) 17 unit SC [facility] Last Admin: 03/04/18 21:58 Dose: 17 units Insulin Human Regular (Novolin R) 0 unit SC [facility]; Protocol Last Admin: 03/04/18 21:59 Dose: Not Given Lorazepam (Ativan) 2 mg PO Q12H PRN PRN Reason: Anxiety Last Admin: 03/04/18 17:00 Dose: 2 mg Methylprednisolone (Solu-Medrol) 40 mg IVP Q12 [facility] Last Admin: 03/04/18 22:43 Dose: Not Given Montelukast Sodium (Singulair) 10 mg PO [facility] Last Admin: 03/04/18 21:58 Dose: 10 mg Pantoprazole Sodium (Protonix Ec Tab) 20 mg PO DAILY [facility] Last Admin: 03/04/18 10:04 Dose: 20 mg Quetiapine Fumarate (Seroquel Xr) 400 mg PO Q12 [facility] Last Admin: 03/04/18 21:57 Dose: 400 mg Sertraline HCl (Zoloft) 100 mg PO BID [facility] Last Admin: 03/04/18 17:00 Dose: 100 mg Trazodone HCl (Desyrel) 150 mg PO HS [facility] Last Admin: 03/04/18 21:58 Dose: 150 mg - Labs Labs: 03/04/18 06:24 03/04/18 06:24
[2018-03-05] MEDS: Albuterol-Ipratrop 3 mg / 0.5 (3 ml) UD INH SCH ×6 (00:05→19:50)
[2018-03-05 07:19] LABS: BASO % 0.4 % (0.0-2.0); EOS % 0.5 % (0.0-4.0); HEMOGLOBIN 11.6 g/dL (11.0-16.0); LYMPH # 2.7 K/uL (1.0-4.3); LYMPH % 26.3 % (20.0-40.0); MEAN CELL VOLUME 80.6 fL (81.0-99.0); MEAN CORPUSCULAR HEMOGLOBIN 26.4 pg (27.0-31.0); MEAN CORPUSCULAR HGB CONC 32.7 g/dL (33.0-37.0); MEAN PLATELET VOLUME 8.2 fL (7.2-11.7); MONO % 9.5 % (0.0-10.0); NEUT # 6.4 K/uL (1.8-7.0); NEUT % 63.3 % (50.0-75.0); RBC 4.4 Mil/uL (3.80-5.20); RED CELL DISTRIBUTION WIDTH 15.2 % (11.5-14.5); WHITE BLOOD COUNT 10.1 K/uL (4.8-10.8)
[2018-03-05] MEDS: (Novolin R) Insulin Human Regular 100 units/ml vial SC SCH ×4 (07:31→21:55)
[2018-03-05 07:39] LABS: ALBUMIN 4.1 g/dL (3.5-5.0); ALT/SGPT 18 U/L (9-52); AST/SGOT 21 U/L (14-36); BLOOD UREA NITROGEN 29 mg/dL (7-17); CALCIUM 9.2 mg/dl (8.6-10.4); GFR NON-AFRICAN AMERICAN 51
[2018-03-05] MEDS: MethylPREDNISolone 40 mg Vial IVP SCH ×2 (09:29→22:51)
[2018-03-05] MEDS: Pantoprazole 20 mg EC Tab PO SCH (09:29)
[2018-03-05] MEDS: guaiFENesin 600 mg ER Tab PO SCH ×3 (09:29→17:50)
[2018-03-05] MEDS: Enoxaparin 40 mg Syringe SC SCH (09:29)
[2018-03-05] MEDS: QUEtiapine 200 mg XR Tab PO SCH ×2 (09:30→22:51)
[2018-03-05] MEDS: Moxifloxacin IV 400mg/250ml NS 400 MG/250 ML BAG IVPB SCH (09:32)
--- NOTE | 2018-03-05 14:04 | CP.PCM.PN ---
<Marco A,Myrtle - Last Filed: 03/05/18 17:07> Subjective - Date & Time of Evaluation Date of Evaluation: 03/05/18 Time of Evaluation: 14:01 - Subjective Subjective: PGY3 progress note for cardiology Pt seen and examined at bedside. No acute events overnight. Currently pt is feeling SOB and having increased secretions in her trach. Denies having any CP, abd pain, N/V/D/C, F/c. Objective - Vital Signs/Intake and Output Vital Signs (last 24 hours): Temp Pulse Resp BP Pulse Ox 98.1 F 91 H 20 119/71 96 03/05/18 07:15 03/05/18 12:50 03/05/18 07:15 03/05/18 07:15 03/05/18 07:15 Intake and Output: 03/05/18 03/05/18 06:59 18:59 Intake Total 350 Balance 350 - Medications Medications: Current Medications Acetaminophen (Tylenol 325mg Tab) 650 mg PO Q6H PRN PRN Reason: Pain, Mild (1-3) Last Admin: 03/05/18 00:23 Dose: 650 mg Albuterol/Ipratropium (Duoneb 3 Mg/0.5 Mg (3 Ml) Ud) 3 ml INH RQ4 [facility] Last Admin: 03/05/18 11:25 Dose: 3 ml Enoxaparin Sodium (Lovenox) 40 mg SC DAILY [facility] Last Admin: 03/05/18 09:29 Dose: 40 mg Gabapentin (Neurontin) 800 mg PO TID [facility] Last Admin: 03/05/18 09:30 Dose: 800 mg Guaifenesin (Mucinex La) 600 mg PO TID [facility] Last Admin: 03/05/18 09:29 Dose: 600 mg Moxifloxacin HCl (Avelox Iv 400mg/250ml Ns) 400 mg in 250 mls @ 167 mls/hr IVPB Q24H [facility]; Protocol Last Admin: 03/05/18 09:32 Dose: 167 mls/hr Insulin Glargine (Lantus) 17 unit SC HS [facility] Last Admin: 03/04/18 21:58 Dose: 17 units Insulin Human Regular (Novolin R) 0 unit SC ACHS [facility]; Protocol Last Admin: 03/05/18 11:51 Dose: 4 unit Lorazepam (Ativan) 2 mg PO Q12H PRN PRN Reason: Anxiety Last Admin: 03/04/18 17:00 Dose: 2 mg Methylprednisolone (Solu-Medrol) 40 mg IVP Q12 [facility] Last Admin: 03/05/18 09:29 Dose: 40 mg Montelukast Sodium (Singulair) 10 mg PO HS [facility] Last Admin: 03/04/18 21:58 Dose: 10 mg Oxycodone/Acetaminophen (Percocet 5/325 Mg Tab) 1 tab PO Q4 PRN PRN Reason: pain Stop: 03/08/18 16:01 Pantoprazole Sodium (Protonix Ec Tab) 20 mg PO DAILY [facility] Last Admin: 03/05/18 09:29 Dose: 20 mg Quetiapine Fumarate (Seroquel Xr) 400 mg PO Q12 [facility] Last Admin: 03/05/18 09:30 Dose: 400 mg Sertraline HCl (Zoloft) 100 mg PO BID [facility] Last Admin: 03/05/18 09:29 Dose: 100 mg Trazodone HCl (Desyrel) 150 mg PO [facility] Last Admin: 03/04/18 21:58 Dose: 150 mg - Labs Labs: 03/05/18 07:02 03/05/18 07:02 - Constitutional Appears: Non-toxic, No Acute Distress - Head Exam Head Exam: ATRAUMATIC, NORMOCEPHALIC - ENT Exam ENT Exam: Mucous Membranes Moist - Respiratory Exam Respiratory Exam: Rhonchi. absent: Accessory Muscle Use, Rales, Wheezes, Respiratory Distress - Cardiovascular Exam Cardiovascular Exam: REGULAR RHYTHM, +S1, +S2. absent: Gallop, Rubs, Murmur - GI/Abdominal Exam GI & Abdominal Exam: Soft, Normal Bowel Sounds. absent: Distended, Firm, Guarding, Rigid, Tenderness, Organomegaly - Extremities Exam Extremities Exam: absent: Pedal Edema, Tenderness - Neurological Exam Neurological Exam: Alert, Awake, Oriented x3 - Psychiatric Exam Psychiatric exam: Normal Affect, Normal Mood - Skin Skin Exam: Dry, Intact, Normal Color, Warm Assessment and Plan - Assessment and Plan (Free Text) Assessment: 62 year old female with past medical history of COPD, HTN, tracheostomy, anxiety, depression is admitted for respiratory distress. Cardiology consulted for chest discomfort. Chest pain R/O ACS - Chest discomfort likely 2/2 COPD exacerbation - EKG on admission showed NSR - Echo done on 04/2017 showed EF of 68% with mild LVH Respiratory distress - Per pulm recs. - Currently on Solumedrol 40 IVP Q12 - Currently on Avelox Tracheostomy - continue present management DM - Per primary management - Will check Hgb A1c and lipid panel - Will start pt on crestor 2.5 mg po hs Case will be discussed with attending <Hardy Dietz - Last Filed: 03/05/18 22:36> Objective - Vital Signs/Intake and Output Vital Signs (last 24 hours): Temp Pulse Resp BP Pulse Ox 98.4 F 96 H 20 110/65 94 L 03/05/18 15:12 03/05/18 15:12 03/05/18 15:12 03/05/18 15:12 03/05/18 15:12 Intake and Output: 03/05/18 03/06/18 18:59 06:59 Intake Total 600 Balance 600 - Medications Medications: Current Medications Acetaminophen (Tylenol 325mg Tab) 650 mg PO Q6H PRN PRN Reason: Pain, Mild (1-3) Last Admin: 03/05/18 00:23 Dose: 650 mg Albuterol/Ipratropium (Duoneb 3 Mg/0.5 Mg (3 Ml) Ud) 3 ml INH RQ4 [facility] Last Admin: 03/05/18 19:50 Dose: 3 ml Enoxaparin Sodium (Lovenox) 40 mg SC DAILY [facility] Last Admin: 03/05/18 09:29 Dose: 40 mg Gabapentin (Neurontin) 800 mg PO TID [facility] Last Admin: 03/05/18 17:50 Dose: 800 mg Guaifenesin (Mucinex La) 600 mg PO TID [facility] Last Admin: 03/05/18 17:50 Dose: 600 mg Moxifloxacin HCl (Avelox Iv 400mg/250ml Ns) 400 mg in 250 mls @ 167 mls/hr IVPB Q24H [facility]; Protocol Last Admin: 03/05/18 09:32 Dose: 167 mls/hr Insulin Glargine (Lantus) 17 unit SC HS [facility] Last Admin: 03/04/18 21:58 Dose: 17 units Insulin Human Regular (Novolin R) 0 unit SC ACHS [facility]; Protocol Last Admin: 03/05/18 21:55 Dose: Not Given Lorazepam (Ativan) 2 mg PO Q12H PRN PRN Reason: Anxiety Last Admin: 03/04/18 17:00 Dose: 2 mg Methylprednisolone (Solu-Medrol) 40 mg IVP Q12 [facility] Last Admin: 03/05/18 09:29 Dose: 40 mg Montelukast Sodium (Singulair) 10 mg PO HS [facility] Last Admin: 03/04/18 21:58 Dose: 10 mg Oxycodone/Acetaminophen (Percocet 5/325 Mg Tab) 1 tab PO Q4 PRN PRN Reason: pain Stop: 03/08/18 16:01 Last Admin: 03/05/18 14:21 Dose: 1 tab Pantoprazole Sodium (Protonix Ec Tab) 20 mg PO DAILY [facility] Last Admin: 03/05/18 09:29 Dose: 20 mg Quetiapine Fumarate (Seroquel Xr) 400 mg PO Q12 [facility] Last Admin: 03/05/18 09:30 Dose: 400 mg Rosuvastatin Calcium (Crestor) 2.5 mg PO [facility] Sertraline HCl (Zoloft) 100 mg PO BID [facility] Last Admin: 03/05/18 17:50 Dose: 100 mg Trazodone HCl (Desyrel) 150 mg PO [facility] Last Admin: 03/04/18 21:58 Dose: 150 mg - Labs Labs: 03/05/18 07:02 03/05/18 07:02 Assessment and Plan - Assessment and Plan (Free Text) Assessment: Patient seen and evaluated personally by me. Plan of care d/w the medical billing assistant and as documented
[2018-03-05] MEDS: Oxycodone/Acetaminophen 5/325 mg Tab PO PRN ×2 (14:21→23:58)
--- NOTE | 2018-03-05 16:38 | CP.PCM.PN ---
<Deandre Wynn - Last Filed: 03/05/18 16:35> Subjective - Date & Time of Evaluation Date of Evaluation: 03/05/18 Time of Evaluation: 09:45 - Subjective Subjective: Pulmonology Note for Dr. Rosado Patient was seen and examined this morning at bedside. Patient is in NAD and resting comfortably in bed. She states that her breathing is somewhat better compared to yesterday. She continues to have a productive cough with thick mucus build up, but this is chronic for her. This mucus is noted to be yellow in color during suctioning. Currently denies fever, chills, chest pain, hemoptysis, nausea, vomiting or abdominal pain. Objective - Vital Signs/Intake and Output Vital Signs (last 24 hours): Temp Pulse Resp BP Pulse Ox 98.4 F 96 H 20 110/65 94 L 03/05/18 15:12 03/05/18 15:12 03/05/18 15:12 03/05/18 15:12 03/05/18 15:12 Intake and Output: 03/05/18 03/05/18 06:59 18:59 Intake Total 350 600 Balance 350 600 - Medications Medications: Current Medications Acetaminophen (Tylenol 325mg Tab) 650 mg PO Q6H PRN PRN Reason: Pain, Mild (1-3) Last Admin: 03/05/18 00:23 Dose: 650 mg Albuterol/Ipratropium (Duoneb 3 Mg/0.5 Mg (3 Ml) Ud) 3 ml INH RQ4 [facility] Last Admin: 03/05/18 11:25 Dose: 3 ml Enoxaparin Sodium (Lovenox) 40 mg SC DAILY [facility] Last Admin: 03/05/18 09:29 Dose: 40 mg Gabapentin (Neurontin) 800 mg PO TID [facility] Last Admin: 03/05/18 14:02 Dose: 800 mg Guaifenesin (Mucinex La) 600 mg PO TID [facility] Last Admin: 03/05/18 14:01 Dose: 600 mg Moxifloxacin HCl (Avelox Iv 400mg/250ml Ns) 400 mg in 250 mls @ 167 mls/hr IVPB Q24H [facility]; Protocol Last Admin: 03/05/18 09:32 Dose: 167 mls/hr Insulin Glargine (Lantus) 17 unit SC HS [facility] Last Admin: 03/04/18 21:58 Dose: 17 units Insulin Human Regular (Novolin R) 0 unit SC ACHS [facility]; Protocol Last Admin: 03/05/18 11:51 Dose: 4 unit Lorazepam (Ativan) 2 mg PO Q12H PRN PRN Reason: Anxiety Last Admin: 03/04/18 17:00 Dose: 2 mg Methylprednisolone (Solu-Medrol) 40 mg IVP Q12 [facility] Last Admin: 03/05/18 09:29 Dose: 40 mg Montelukast Sodium (Singulair) 10 mg PO [facility] Last Admin: 03/04/18 21:58 Dose: 10 mg Oxycodone/Acetaminophen (Percocet 5/325 Mg Tab) 1 tab PO Q4 PRN PRN Reason: pain Stop: 03/08/18 16:01 Last Admin: 03/05/18 14:21 Dose: 1 tab Pantoprazole Sodium (Protonix Ec Tab) 20 mg PO DAILY [facility] Last Admin: 03/05/18 09:29 Dose: 20 mg Quetiapine Fumarate (Seroquel Xr) 400 mg PO Q12 [facility] Last Admin: 03/05/18 09:30 Dose: 400 mg Rosuvastatin Calcium (Crestor) 2.5 mg PO [facility] Sertraline HCl (Zoloft) 100 mg PO BID [facility] Last Admin: 03/05/18 09:29 Dose: 100 mg Trazodone HCl (Desyrel) 150 mg PO [facility] Last Admin: 03/04/18 21:58 Dose: 150 mg - Labs Labs: 03/05/18 07:02 03/05/18 07:02 - Constitutional Appears: No Acute Distress, Chronically Ill - Head Exam Head Exam: ATRAUMATIC, NORMOCEPHALIC - Eye Exam Eye Exam: Normal appearance - Neck Exam Additional comments: Trach in place - Respiratory Exam Respiratory Exam: Rhonchi (throughout b/l), NORMAL BREATHING PATTERN. absent: Wheezes, Respiratory Distress - Cardiovascular Exam Cardiovascular Exam: REGULAR RHYTHM, +S1, +S2 - GI/Abdominal Exam GI & Abdominal Exam: Soft. absent: Distended, Firm, Guarding, Rigid, Tenderness Additional comments: obese - Neurological Exam Neurological Exam: Alert, Awake, Oriented x3 - Psychiatric Exam Psychiatric exam: Normal Affect, Normal Mood - Skin Skin Exam: Dry, Warm Assessment and Plan (1) Chr obstructive pulmonary disease w/ acute lower respiratory infxn Assessment & Plan: Repeat cxr show minimal change but patient is clinically much improved. Patient is stable for discharge from pulmonary standpoint. Continue antibiotics Tracheostomy care blood cultures negative at 3 days Moxifloxacin 400mg IVPB q24h Duonebs Mucinex Solumedrol Singulair Status: Acute (2) Tracheostomy dependence Status: Acute <Rodo Rosado S - Last Filed: 03/05/18 18:09> Objective - Vital Signs/Intake and Output Vital Signs (last 24 hours): Temp Pulse Resp BP Pulse Ox 98.4 F 96 H 20 110/65 94 L 03/05/18 15:12 03/05/18 15:12 03/05/18 15:12 03/05/18 15:12 03/05/18 15:12 Intake and Output: 03/05/18 03/05/18 06:59 18:59 Intake Total 350 600 Balance 350 600 - Medications Medications: Current Medications Acetaminophen (Tylenol 325mg Tab) 650 mg PO Q6H PRN PRN Reason: Pain, Mild (1-3) Last Admin: 03/05/18 00:23 Dose: 650 mg Albuterol/Ipratropium (Duoneb 3 Mg/0.5 Mg (3 Ml) Ud) 3 ml INH RQ4 [facility] Last Admin: 03/05/18 17:20 Dose: 3 ml Enoxaparin Sodium (Lovenox) 40 mg SC DAILY [facility] Last Admin: 03/05/18 09:29 Dose: 40 mg Gabapentin (Neurontin) 800 mg PO TID [facility] Last Admin: 03/05/18 17:50 Dose: 800 mg Guaifenesin (Mucinex La) 600 mg PO TID [facility] Last Admin: 03/05/18 17:50 Dose: 600 mg Moxifloxacin HCl (Avelox Iv 400mg/250ml Ns) 400 mg in 250 mls @ 167 mls/hr IVPB Q24H [facility]; Protocol Last Admin: 03/05/18 09:32 Dose: 167 mls/hr Insulin Glargine (Lantus) 17 unit SC HS [facility] Last Admin: 03/04/18 21:58 Dose: 17 units Insulin Human Regular (Novolin R) 0 unit SC ACHS [facility]; Protocol Last Admin: 03/05/18 17:20 Dose: 5 unit Lorazepam (Ativan) 2 mg PO Q12H PRN PRN Reason: Anxiety Last Admin: 03/04/18 17:00 Dose: 2 mg Methylprednisolone (Solu-Medrol) 40 mg IVP Q12 [facility] Last Admin: 03/05/18 09:29 Dose: 40 mg Montelukast Sodium (Singulair) 10 mg PO HS [facility] Last Admin: 03/04/18 21:58 Dose: 10 mg Oxycodone/Acetaminophen (Percocet 5/325 Mg Tab) 1 tab PO Q4 PRN PRN Reason: pain Stop: 03/08/18 16:01 Last Admin: 03/05/18 14:21 Dose: 1 tab Pantoprazole Sodium (Protonix Ec Tab) 20 mg PO DAILY [facility] Last Admin: 03/05/18 09:29 Dose: 20 mg Quetiapine Fumarate (Seroquel Xr) 400 mg PO Q12 [facility] Last Admin: 03/05/18 09:30 Dose: 400 mg Rosuvastatin Calcium (Crestor) 2.5 mg PO [facility] Sertraline HCl (Zoloft) 100 mg PO BID [facility] Last Admin: 03/05/18 17:50 Dose: 100 mg Trazodone HCl (Desyrel) 150 mg PO [facility] Last Admin: 03/04/18 21:58 Dose: 150 mg - Labs Labs: 03/05/18 07:02 03/05/18 07:02 Assessment and Plan (1) Chr obstructive pulmonary disease w/ acute lower respiratory infxn Status: Acute (2) Tracheostomy dependence Status: Acute Attending/Attestation - Attestation I have personally seen and examined this patient.: Yes I have fully participated in the care of the patient.: Yes I have reviewed all pertinent clinical information, including history, physical exam and plan: Yes Notes (Text): 03/05/18 18:08 patient seen and examined Clinically improving Less wheezing and secretions Continue antibiotics And present treatment Stable from pulmonary standpoint
--- NOTE | 2018-03-05 21:55 | CP.PCM.PN ---
Subjective - Subjective Subjective: dictated Objective - Vital Signs/Intake and Output Vital Signs (last 24 hours): Temp Pulse Resp BP Pulse Ox 98.4 F 96 H 20 110/65 94 L 03/05/18 15:12 03/05/18 15:12 03/05/18 15:12 03/05/18 15:12 03/05/18 15:12 Intake and Output: 03/05/18 03/06/18 18:59 06:59 Intake Total 600 Balance 600 - Medications Medications: Current Medications Acetaminophen (Tylenol 325mg Tab) 650 mg PO Q6H PRN PRN Reason: Pain, Mild (1-3) Last Admin: 03/05/18 00:23 Dose: 650 mg Albuterol/Ipratropium (Duoneb 3 Mg/0.5 Mg (3 Ml) Ud) 3 ml INH RQ4 [facility] Last Admin: 03/05/18 19:50 Dose: 3 ml Enoxaparin Sodium (Lovenox) 40 mg SC DAILY [facility] Last Admin: 03/05/18 09:29 Dose: 40 mg Gabapentin (Neurontin) 800 mg PO TID [facility] Last Admin: 03/05/18 17:50 Dose: 800 mg Guaifenesin (Mucinex La) 600 mg PO TID [facility] Last Admin: 03/05/18 17:50 Dose: 600 mg Moxifloxacin HCl (Avelox Iv 400mg/250ml Ns) 400 mg in 250 mls @ 167 mls/hr IVPB Q24H [facility]; Protocol Last Admin: 03/05/18 09:32 Dose: 167 mls/hr Insulin Glargine (Lantus) 17 unit SC [facility] Last Admin: 03/04/18 21:58 Dose: 17 units Insulin Human Regular (Novolin R) 0 unit SC [facility]; Protocol Last Admin: 03/05/18 17:20 Dose: 5 unit Lorazepam (Ativan) 2 mg PO Q12H PRN PRN Reason: Anxiety Last Admin: 03/04/18 17:00 Dose: 2 mg Methylprednisolone (Solu-Medrol) 40 mg IVP Q12 [facility] Last Admin: 03/05/18 09:29 Dose: 40 mg Montelukast Sodium (Singulair) 10 mg PO HS [facility] Last Admin: 03/04/18 21:58 Dose: 10 mg Oxycodone/Acetaminophen (Percocet 5/325 Mg Tab) 1 tab PO Q4 PRN PRN Reason: pain Stop: 03/08/18 16:01 Last Admin: 03/05/18 14:21 Dose: 1 tab Pantoprazole Sodium (Protonix Ec Tab) 20 mg PO DAILY [facility] Last Admin: 03/05/18 09:29 Dose: 20 mg Quetiapine Fumarate (Seroquel Xr) 400 mg PO Q12 [facility] Last Admin: 03/05/18 09:30 Dose: 400 mg Rosuvastatin Calcium (Crestor) 2.5 mg PO [facility] Sertraline HCl (Zoloft) 100 mg PO BID [facility] Last Admin: 03/05/18 17:50 Dose: 100 mg Trazodone HCl (Desyrel) 150 mg PO HS [facility] Last Admin: 03/04/18 21:58 Dose: 150 mg - Labs Labs: 03/05/18 07:02 03/05/18 07:02
[2018-03-05] MEDS ORDERED: Rosuvastatin Calcium 2.5 mg Tab PO SCH (22:00)
[2018-03-05] MEDS: (Lantus) Insulin Glargine, Recombinant SC SCH (22:50)
--- NOTE | 2018-03-06 00:36 | PN ---
DATE: 03/05/2018 SUBJECTIVE: The patient is coughing, congested, but overall she is feeling better. She denies any nausea, vomiting. She denies any chest pain. Sputum is clearing up and chest is clearing up. PHYSICAL EXAMINATION: VITAL SIGNS: Blood pressure is 131/83, pulse 83, respiratory rate 20, temperature 98.2. LUNGS: Bilateral inspiratory and expiratory rales and rhonchi. Decreased air entry. CARDIOVASCULAR SYSTEM: S1 and S2, regular. ABDOMEN: Soft, nontender. Bowel sounds are positive. ASSESSMENT: 1. Bronchopneumonia, on antibiotics. Continue current antibiotics including Solu-Medrol expectorant. 2. Chronic major depression. 3. Type 2 diabetes. 4. Hypertension. 5. Bronchial asthma/tracheostomy. PLAN: Continue to monitor the patient, Solu-Medrol, taper steroids, antibiotics. Ad Khan MD
[2018-03-06] MEDS: Albuterol-Ipratrop 3 mg / 0.5 (3 ml) UD INH SCH ×4 (00:40→12:00)
--- NOTE | 2018-03-06 05:26 | DS ---
DISCHARGE DIAGNOSES: Bronchopneumonia, acute exacerbation of bronchial asthma, hypertension, type 2 diabetes, and depression. HISTORY OF PRESENT ILLNESS AND HOSPITAL COURSE: This is a 62-year-old female, well known to me with history of morbid obesity, tracheostomy, hypertension, type 2 diabetes, hyperlipidemia, chronic obstructive asthma, and depression. She is compliant with her diet, medication, and followup. She had tracheostomy. She has home oxygen nebulizer, tracheostomy suctioning apparatus. She is homebound, and she is dependent on her homemaker for activities of daily living, compliant. She came in because of cough, congestion, shortness of breath, and wheezing. Chest x-ray showed bronchopneumonia. The patient responded well to Avelox. She is afebrile. Her white cell count is normal, and she is feeling better and she is for discharge. PHYSICAL EXAMINATION: VITAL SIGNS: Blood pressure 110/65, pulse 96, respiratory rate 20, and temperature 98.4. LUNGS: Bilateral scattered rales. CARDIOVASCULAR SYSTEM: S1, S2 regular. ABDOMEN: Soft. PLAN: Discharge the patient. Monitor the patient. Ad Khan MD
[2018-03-06] MEDS: (Novolin R) Insulin Human Regular 100 units/ml vial SC SCH ×2 (07:57→12:30)
[2018-03-06] MEDS: Moxifloxacin IV 400mg/250ml NS 400 MG/250 ML BAG IVPB SCH (08:03)
[2018-03-06 08:40] LABS: HDL CHOLESTEROL 54 mg/dL (30-70)
[2018-03-06 08:52] LABS: LDL CHOLESTEROL 130 mg/dL (0-129)
[2018-03-06] MEDS: Pantoprazole 20 mg EC Tab PO SCH (09:41)
[2018-03-06] MEDS: guaiFENesin 600 mg ER Tab PO SCH ×2 (09:41→13:03)
[2018-03-06] MEDS: Enoxaparin 40 mg Syringe SC SCH (09:41)
[2018-03-06] MEDS: MethylPREDNISolone 40 mg Vial IVP SCH (09:42)
[2018-03-06] MEDS: QUEtiapine 200 mg XR Tab PO SCH (09:42)
[2018-03-06] MEDS: Oxycodone/Acetaminophen 5/325 mg Tab PO PRN (13:08)
--- NOTE | 2018-03-06 15:11 | CP.PCM.PN ---
<Myrtle Strickland - Last Filed: 03/06/18 15:08> Subjective - Date & Time of Evaluation Date of Evaluation: 03/06/18 Time of Evaluation: 15:09 - Subjective Subjective: PGY3 progress note for cardiology Pt seen and examined at bedside. No acute events overnight. Pt denies feeling SOB currently. Denies having any abd pain, N/V/D/C, F/C. Does complain of intermittent sub-strenal chest pain. Also complains of pain at site of trach collar due to collar rubbing against skin. Objective - Vital Signs/Intake and Output Vital Signs (last 24 hours): Temp Pulse Resp BP Pulse Ox 98.0 F 76 20 115/73 94 L 03/06/18 08:15 03/06/18 08:15 03/06/18 08:15 03/06/18 08:15 03/06/18 08:15 Intake and Output: 03/06/18 03/06/18 06:59 18:59 Intake Total 350 600 Output Total 300 Balance 50 600 - Medications Medications: Current Medications Acetaminophen (Tylenol 325mg Tab) 650 mg PO Q6H PRN PRN Reason: Pain, Mild (1-3) Last Admin: 03/05/18 00:23 Dose: 650 mg Albuterol/Ipratropium (Duoneb 3 Mg/0.5 Mg (3 Ml) Ud) 3 ml INH RQ4 [facility] Last Admin: 03/06/18 07:50 Dose: Not Given Enoxaparin Sodium (Lovenox) 40 mg SC DAILY [facility] Last Admin: 03/06/18 09:41 Dose: 40 mg Gabapentin (Neurontin) 800 mg PO TID [facility] Last Admin: 03/06/18 13:13 Dose: 800 mg Guaifenesin (Mucinex La) 600 mg PO TID [facility] Last Admin: 03/06/18 13:03 Dose: 600 mg Moxifloxacin HCl (Avelox Iv 400mg/250ml Ns) 400 mg in 250 mls @ 167 mls/hr IVPB Q24H [facility]; Protocol Last Admin: 03/06/18 08:03 Dose: 167 mls/hr Insulin Glargine (Lantus) 17 unit SC HS [facility] Last Admin: 03/05/18 22:50 Dose: 17 units Insulin Human Regular (Novolin R) 0 unit SC ACHS [facility]; Protocol Last Admin: 03/06/18 12:30 Dose: 3 unit Lorazepam (Ativan) 2 mg PO Q12H PRN PRN Reason: Anxiety Last Admin: 03/05/18 22:54 Dose: 2 mg Methylprednisolone (Solu-Medrol) 40 mg IVP Q12 [facility] Last Admin: 03/06/18 09:42 Dose: 40 mg Montelukast Sodium (Singulair) 10 mg PO [facility] Last Admin: 03/05/18 22:51 Dose: 10 mg Oxycodone/Acetaminophen (Percocet 5/325 Mg Tab) 1 tab PO Q4 PRN PRN Reason: pain Stop: 03/08/18 16:01 Last Admin: 03/06/18 13:08 Dose: 1 tab Pantoprazole Sodium (Protonix Ec Tab) 20 mg PO DAILY [facility] Last Admin: 03/06/18 09:41 Dose: 20 mg Quetiapine Fumarate (Seroquel Xr) 400 mg PO Q12 [facility] Last Admin: 03/06/18 09:42 Dose: 400 mg Rosuvastatin Calcium (Crestor) 2.5 mg PO [facility] Last Admin: 03/05/18 22:52 Dose: 2.5 mg Sertraline HCl (Zoloft) 100 mg PO BID [facility] Last Admin: 03/06/18 09:41 Dose: 100 mg Trazodone HCl (Desyrel) 150 mg PO [facility] Last Admin: 03/05/18 22:51 Dose: 150 mg - Labs Labs: 03/05/18 07:02 03/05/18 07:02 - Constitutional Appears: Non-toxic, No Acute Distress - Head Exam Head Exam: ATRAUMATIC, NORMOCEPHALIC - ENT Exam ENT Exam: Mucous Membranes Moist - Respiratory Exam Respiratory Exam: Rhonchi. absent: Rales, Wheezes - Cardiovascular Exam Cardiovascular Exam: REGULAR RHYTHM, +S1, +S2. absent: Gallop, Rubs, Murmur - GI/Abdominal Exam GI & Abdominal Exam: Soft, Normal Bowel Sounds. absent: Distended, Firm, Guarding, Rigid, Tenderness - Extremities Exam Extremities Exam: absent: Pedal Edema, Tenderness - Neurological Exam Neurological Exam: Alert, Awake, Oriented x3 - Psychiatric Exam Psychiatric exam: Normal Affect, Normal Mood - Skin Skin Exam: Dry, Intact, Normal Color, Warm Additional comments: mild excoriation around trach collar noticed Assessment and Plan - Assessment and Plan (Free Text) Assessment: 62 year old female with past medical history of COPD, HTN, tracheostomy, anxiety, depression is admitted for respiratory distress. Cardiology consulted for chest discomfort. Chest pain R/O ACS - Chest discomfort likely 2/2 COPD exacerbation - EKG on admission showed NSR - Echo done on 04/2017 showed EF of 68% with mild LVH Respiratory distress - Per pulm recs. - Currently on Solumedrol 40 IVP Q12 - Currently on Avelox Tracheostomy - continue present management - pt given gauze to place around trach collar DM - Per primary management - Hgb A1c 8.1 HLD - Crestor 2.5 mg po hs Case will be discussed with attending <Hardy Dietz - Last Filed: 03/06/18 22:26> Objective - Vital Signs/Intake and Output Vital Signs (last 24 hours): Temp Pulse Resp BP Pulse Ox 98.2 F 78 20 111/73 97 03/06/18 15:59 03/06/18 15:59 03/06/18 15:59 03/06/18 15:59 03/06/18 15:59 Intake and Output: 03/06/18 03/07/18 18:59 06:59 Intake Total 600 Balance 600 - Labs Labs: 03/05/18 07:02 03/05/18 07:02 Assessment and Plan - Assessment and Plan (Free Text) Assessment: Patient seen and evaluated personally by me. Plan of care d/w the medical scientific officer and as documented
[2018-03-06 16:04] VITALS: BP 111/73; PULSE 78; TEMP 98.2; O2SAT 97
--- NOTE | 2018-03-06 16:48 | CP.PCM.PN ---
Subjective - Date & Time of Evaluation Date of Evaluation: 03/06/18 Time of Evaluation: 15:45 - Subjective Subjective: Pulmonology Note for Dr. Rosado Patient was seen and examined at bedside this morning. She is in no acute distress and resting comfortably in bed. She states that her breathing has improved overall since yesterday. Of note, she continues to have cough/mucus build up around trach, which is chronic to her. She continues to suction this w hich improves her symptoms greatly. Currently denies fever, chills, chest pain, hemoptysis, nausea, vomiting or diarrhea or constipation. Objective - Vital Signs/Intake and Output Vital Signs (last 24 hours): Temp Pulse Resp BP Pulse Ox 98.2 F 78 20 111/73 97 03/06/18 15:59 03/06/18 15:59 03/06/18 15:59 03/06/18 15:59 03/06/18 15:59 Intake and Output: 03/06/18 03/06/18 06:59 18:59 Intake Total 350 600 Output Total 300 Balance 50 600 - Medications Medications: Current Medications Acetaminophen (Tylenol 325mg Tab) 650 mg PO Q6H PRN PRN Reason: Pain, Mild (1-3) Last Admin: 03/05/18 00:23 Dose: 650 mg Albuterol/Ipratropium (Duoneb 3 Mg/0.5 Mg (3 Ml) Ud) 3 ml INH RQ4 [facility] Last Admin: 03/06/18 12:00 Dose: Not Given Enoxaparin Sodium (Lovenox) 40 mg SC DAILY [facility] Last Admin: 03/06/18 09:41 Dose: 40 mg Gabapentin (Neurontin) 800 mg PO TID [facility] Last Admin: 03/06/18 13:13 Dose: 800 mg Guaifenesin (Mucinex La) 600 mg PO TID [facility] Last Admin: 03/06/18 13:03 Dose: 600 mg Moxifloxacin HCl (Avelox Iv 400mg/250ml Ns) 400 mg in 250 mls @ 167 mls/hr IVPB Q24H [facility]; Protocol Last Admin: 03/06/18 08:03 Dose: 167 mls/hr Insulin Glargine (Lantus) 17 unit SC HS [facility] Last Admin: 03/05/18 22:50 Dose: 17 units Insulin Human Regular (Novolin R) 0 unit SC ACHS [facility]; Protocol Last Admin: 03/06/18 12:30 Dose: 3 unit Lorazepam (Ativan) 2 mg PO Q12H PRN PRN Reason: Anxiety Last Admin: 03/05/18 22:54 Dose: 2 mg Methylprednisolone (Solu-Medrol) 40 mg IVP Q12 [facility] Last Admin: 03/06/18 09:42 Dose: 40 mg Montelukast Sodium (Singulair) 10 mg PO [facility] Last Admin: 03/05/18 22:51 Dose: 10 mg Oxycodone/Acetaminophen (Percocet 5/325 Mg Tab) 1 tab PO Q4 PRN PRN Reason: pain Stop: 03/08/18 16:01 Last Admin: 03/06/18 13:08 Dose: 1 tab Pantoprazole Sodium (Protonix Ec Tab) 20 mg PO DAILY [facility] Last Admin: 03/06/18 09:41 Dose: 20 mg Quetiapine Fumarate (Seroquel Xr) 400 mg PO Q12 [facility] Last Admin: 03/06/18 09:42 Dose: 400 mg Rosuvastatin Calcium (Crestor) 2.5 mg PO [facility] Last Admin: 03/05/18 22:52 Dose: 2.5 mg Sertraline HCl (Zoloft) 100 mg PO BID [facility] Last Admin: 03/06/18 09:41 Dose: 100 mg Trazodone HCl (Desyrel) 150 mg PO [facility] Last Admin: 03/05/18 22:51 Dose: 150 mg - Labs Labs: 03/05/18 07:02 03/05/18 07:02 - Additional Findings Additional findings: - Constitutional Appears: No Acute Distress, Chronically Ill - Head Exam Head Exam: ATRAUMATIC, NORMOCEPHALIC - Eye Exam Eye Exam: Normal appearance - Neck Exam Additional comments: Trach in place - Respiratory Exam Respiratory Exam: improved Rhonchi (throughout b/l), NORMAL BREATHING PATTERN. absent: Wheezes, Respiratory Distress - Cardiovascular Exam Cardiovascular Exam: REGULAR RHYTHM, +S1, +S2 - GI/Abdominal Exam GI & Abdominal Exam: Soft. absent: Distended, Firm, Guarding, Rigid, Tenderness Additional comments: obese - Neurological Exam Neurological Exam: Alert, Awake, Oriented x3 - Psychiatric Exam Psychiatric exam: Normal Affect, Normal Mood - Skin Skin Exam: Dry, Warm Assessment and Plan (1) Chr obstructive pulmonary disease w/ acute lower respiratory infxn Assessment & Plan: Breathing improved, less rhonchi/secretions Tracheostomy care blood cultures negative at 4 days Moxifloxacin 400mg IVPB q24h Duonebs Mucinex Solumedrol Singulair Patient is stable for discharge from pulmonary standpoint. Status: Acute (2) Tracheostomy dependence Status: Acute
--- NOTE | 2018-03-06 20:46 | CP.PCM.DIS ---
Provider - Provider Date of Admission: 03/03/18 11:39 Attending physician: Ad Khan MD Consults: 03/01/18 21:02 Cardiology Consult Routine Comment: chf Consulting Provider: Hardy Dietz Consulting Physician: Hardy Dietz Reason for Consult: chf Pulmonology Consult Routine Comment: Consulting Provider: Rodo Rosado Consulting Physician: Rodo Rosado Reason for Consult: pna 03/03/18 13:20 Nursing Referral for Palliative Care Routine Comment: Physician Instructions: Reason For Exam: pt has trache Hospital Course - Lab Results Lab Results: Micro Results 03/01/18 18:25 Blood Blood Culture - Final NO GROWTH AFTER 5 DAYS 03/01/18 18:25 Blood Gram Stain - Final TEST NOT PERFORMED 03/01/18 17:00 Blood Blood Culture - Final NO GROWTH AFTER 5 DAYS 03/01/18 17:00 Blood Gram Stain - Final TEST NOT PERFORMED Most Recent Lab Values WBC 10.1 K/uL (4.8-10.8) 03/05/18 07:02 RBC 4.40 Mil/uL (3.80-5.20) 03/05/18 07:02 Hgb 11.6 g/dL (11.0-16.0) 03/05/18 07:02 Hct 35.4 % (34.0-47.0) 03/05/18 07:02 MCV 80.6 fL (81.0-99.0) L 03/05/18 07:02 MCH 26.4 pg (27.0-31.0) L 03/05/18 07:02 MCHC 32.7 g/dL (33.0-37.0) L 03/05/18 07:02 RDW 15.2 % (11.5-14.5) H 03/05/18 07:02 Plt Count 218 K/uL (130-400) 03/05/18 07:02 MPV 8.2 fL (7.2-11.7) 03/05/18 07:02 Neut % (Auto) 63.3 % (50.0-75.0) 03/05/18 07:02 Lymph % (Auto) 26.3 % (20.0-40.0) 03/05/18 07:02 Gordon % (Auto) 9.5 % (0.0-10.0) 03/05/18 07:02 Eos % (Auto) 0.5 % (0.0-4.0) 03/05/18 07:02 Baso % (Auto) 0.4 % (0.0-2.0) 03/05/18 07:02 Neut # (Auto) 6.4 K/uL (1.8-7.0) 03/05/18 07:02 Lymph # (Auto) 2.7 K/uL (1.0-4.3) 03/05/18 07:02 Gordon # (Auto) 1.0 K/uL (0.0-0.8) H 03/05/18 07:02 Eos # (Auto) 0.0 K/uL (0.0-0.7) 03/05/18 07:02 Baso # (Auto) 0.0 K/uL (0.0-0.2) 03/05/18 07:02 Sodium 138 mmol/L (132-148) 03/05/18 07:02 Potassium 4.0 mmol/L (3.6-5.2) 03/05/18 07:02 Chloride 99 mmol/L (98-107) 03/05/18 07:02 Carbon Dioxide 33 mmol/L (22-30) H 03/05/18 07:02 Anion Gap 10 (10-20) 03/05/18 07:02 BUN 29 mg/dL (7-17) H 03/05/18 07:02 Creatinine 1.1 mg/dL (0.7-1.2) 03/05/18 07:02 Est GFR ( Amer) > 60 03/05/18 07:02 Est GFR (Non-Af Amer) 51 03/05/18 07:02 POC Glucose (mg/dL) 253 mg/dL (65-110) H 03/06/18 16:19 Random Glucose 169 mg/dL (65-105) H D 03/05/18 07:02 Hemoglobin A1c 8.1 % (4.2-6.5) H 03/06/18 08:07 Calcium 9.2 mg/dl (8.6-10.4) 03/05/18 07:02 Total Bilirubin 0.4 mg/dL (0.2-1.3) 03/05/18 07:02 AST 21 U/L (14-36) 03/05/18 07:02 ALT 18 U/L (9-52) 03/05/18 07:02 Alkaline Phosphatase 127 U/L (38-126) H 03/05/18 07:02 Total Protein 8.0 g/dL (6.3-8.3) 03/05/18 07:02 Albumin 4.1 g/dL (3.5-5.0) 03/05/18 07:02 Globulin 3.9 gm/dL (2.2-3.9) 03/05/18 07:02 Albumin/Globulin Ratio 1.0 (1.0-2.1) 03/05/18 07:02 Triglycerides 166 mg/dL (0-149) H D 03/06/18 08:07 Cholesterol 211 mg/dL (0-199) H 03/06/18 08:07 LDL Cholesterol Direct 130 mg/dL (0-129) H 03/06/18 08:07 HDL Cholesterol 54 mg/dL (30-70) 03/06/18 08:07 Influenza Typ A,B (EIA) Negative for flu a/b (NEGATIVE) 03/01/18 17:40 Discharge Exam - Head Exam Head Exam: ATRAUMATIC, NORMOCEPHALIC Discharge Plan - Discharge Medications Prescriptions: Albuterol/Ipratropium [Duoneb 3 mg/0.5 mg (3 ml) UD] 3 ml INH RQ4 30 Days neb Guaifenesin [Guaifenesin ER] 600 mg PO TID #30 tab.er.12h Insulin Glargine, Recombina [Lantus] 17 unit SC HS 30 Days unit Insulin Human Regular [Novolin R] See Protocol SC ACHS 30 Days unit predniSONE [Prednisone] 30 mg PO DAILY #19 tab predniSONE [predniSONE Tab] 5 mg PO DAILY #15 tab - Follow Up Plan Condition: FAIR Disposition: HOME/ ROUTINE Instructions: Heart Healthy Diet, Diabetes Exchange Diet, Acute Bronchitis, Adult (DC), Heart Failure, Adult (DC), Diabetes Diet , Exacerbation of COPD (DC), How to Care for a Tracheostomy, Prednisone Additional Instructions: Please follow up with office in 1 week Please continue medication as per med. rec use oxygen as needed Referrals: Rodo Rosado MD [Staff Provider] - Ad Khan MD [Staff Provider] -
--- NOTE | 2018-03-07 05:25 | DS ---
DISCHARGE DIAGNOSES: 1. Bronchopneumonia. 2. Acute exacerbation of bronchial asthma. 3. Tracheostomy. 4. Type 2 diabetes. 5. Depression. 6. Hypertension. HISTORY OF PRESENT ILLNESS: This is a 62-year-old female, well known to me with history of type 2 diabetes, hypertension, hyperlipidemia, chronic obstructive asthma, anxiety, depression, on multiple medications. She is compliant with her diet, medication, and followup. She has a tracheostomy. She has a suction device, nebulizer, and home oxygen. The patient was admitted because of cough, congestion, fever, chills, rigors, found to have bronchopneumonia in multiple sites. SHE WAS STARTED ON AVELOX TO AVOID PENICILLIN DUE TO ALLERGIES. The patient did well. She is afebrile. Decreased cough, congestion. Sputum has been cleared up. She is feeling better, and she has been discharged with outpatient followup. Condition upon discharge is stable. PHYSICAL EXAMINATION: VITAL SIGNS: Blood pressure 111/73, pulse 78, respiratory rate 20, temperature 98.2. LABORATORY DATA: Glucose 276, 253. LDL 130. CONDITION UPON DISCHARGE: Stable. PLAN: She will be followed up as outpatient. Ad Khan MD
== END 2018-03-06 16:53 | disposition home health service (06) | DRG 541 ==
LOC: C.ER 16:43 → C.9E 18:57 → C.6T 19:08 → OBSVTOIN 03-03 11:39
PROVIDERS: ADMIT Specialist; ATTEND Internal Medicine
DX: J44.0 Chronic obstructive pulmonary disease with (acute) lower respiratory infection (principal); J18.0 Bronchopneumonia, unspecified organism; I50.32 Chronic diastolic (congestive) heart failure; J45.901 Unspecified asthma with (acute) exacerbation; I11.0 Hypertensive heart disease with heart failure; J44.1 Chronic obstructive pulmonary disease with (acute) exacerbation; E11.9 Type 2 diabetes mellitus without complications; Z93.0 Tracheostomy status; G47.30 Sleep apnea, unspecified; E78.5 Hyperlipidemia, unspecified; F31.9 Bipolar disorder, unspecified; E66.01 Morbid (severe) obesity due to excess calories; Z99.81 Dependence on supplemental oxygen; Z87.01 Personal history of pneumonia (recurrent); Z90.49 Acquired absence of other specified parts of digestive tract

== ENCOUNTER 2018-03-20 14:40 | Inpatient (IN) | payer OTHER ==
[2018-03-20 14:41] VITALS: BMI 47.0
[2018-03-20] MEDS ORDERED: Albuterol-Ipratrop 3 mg / 0.5 (3 ml) UD ONE ×2 (14:55→15:15)
[2018-03-20] MEDS ORDERED: Racepinephrine 2.25% Inhal Soln 0.5 ML UD ONE (15:26)
[2018-03-20] MEDS ORDERED: Albuterol 0.083% Inhal Sol (2.5 mg/3 mL) UD ONE (15:27)
[2018-03-20] MEDS ORDERED: Albuterol 0.083% Inhal Sol (2.5 mg/3 mL) UD IH STA (15:34)
[2018-03-20] MEDS ORDERED: Budesonide 0.5 mg/2 ml Inhal Susp UD INH STA (15:35)
[2018-03-20] MEDS ORDERED: Racepinephrine 2.25% Inhal Soln 0.5 ML UD INH ONE (15:39)
[2018-03-20 16:20] LABS: BASO # 0.1 K/uL (0.0-0.2); BASO % 0.3 % (0.0-2.0); EOS # 0.2 K/uL (0.0-0.7); EOS % 0.8 % (0.0-4.0); HEMOGLOBIN 12.9 g/dL (11.0-16.0); LYMPH # 3.9 K/uL (1.0-4.3); LYMPH % 18.4 % (20.0-40.0); MEAN CELL VOLUME 79.3 fL (81.0-99.0); MEAN CORPUSCULAR HEMOGLOBIN 24.8 pg (27.0-31.0); MEAN CORPUSCULAR HGB CONC 31.3 g/dL (33.0-37.0); MONO # 1.3 K/uL (0.0-0.8); MONO % 5.9 % (0.0-10.0); NEUT % 74.6 % (50.0-75.0); RBC 5.2 Mil/uL (3.80-5.20); RED CELL DISTRIBUTION WIDTH 15.2 % (11.5-14.5)
[2018-03-20 16:22] LABS: WHITE BLOOD COUNT 21.4 K/uL (4.8-10.8)
[2018-03-20 16:40] LABS: ALBUMIN 4.7 g/dL (3.5-5.0); ALT/SGPT 9 U/L (9-52); AST/SGOT 23 U/L (14-36); GFR NON-AFRICAN AMERICAN > 60
[2018-03-20 16:55] LABS: BLOOD UREA NITROGEN 18 mg/dL (7-17)
--- NOTE | 2018-03-20 17:04 | C.PDOC ---
History Of Present Illness 62 y/o female,w/PMhx of COPD and multiple intubations and s/p tracheostomy, brought to ER by ambulance for shortness of breath and productive cough with green phlegm. According to family, patient was admitted for COPD exacerbatio in the beginning of February 2018 and she was discharged on with prescriptions for Prednisone and Albuterol. Family reports that her suction machine is not functioning and she has thick phlegm which is not able to be cleared. She is brought to ED by EMS in respiratory distress. Time Seen by Provider: 03/20/18 15:33 Chief Complaint (Nursing): Respiratory Distress History Per: Patient, Family History/Exam Limitations: no limitations Onset/Duration Of Symptoms: Days Current Symptoms Are (Timing): Still Present Severity: Moderate Past Medical History Reviewed: Historical Data, Nursing Documentation, Vital Signs Vital Signs: Last Vital Signs Temp 99.1 F 03/20/18 16:47 Pulse 106 H 03/20/18 16:43 Resp 26 H 03/20/18 16:43 BP 98/64 L 03/20/18 16:43 Pulse Ox 96 03/20/18 16:43 - Medical History PMH: Anxiety, Asthma, Bipolar Disorder, Bronchitis, CHF, COPD, Depression, Emphysema, Gall Bladder Disease, HTN, Pneumonia, Seizures, Sleep Apnea Denies: Arthritis, HIV, Hypercholesterolemia, Hypothyroidism, Chronic Kidney Disease, Rheumatoid Arthritis, Sexually Transmitted Disease Surgical History: Appendectomy, Cholecystectomy - [facility] Procedures ASSISTANCE WITH RESPIRATORY VENTILATION, <24 HRS, CPAP (03/14/16) CENTRAL VENOUS CATHETER PLACEMENT WITH GUIDANCE (10/24/14) CHANGE TRACHEOSTOMY DEVICE IN TRACHEA, EXTERNAL APPROACH (07/03/17) CONTINUOUS INVASIVE MECHANICAL VENTILATION <96 CONSEC HRS (03/07/14) DRAINAGE OF LUNG LINGULA, ENDO, DIAGN (11/30/17) ENTERAL INFUSION OF CONCENTRATED NUT. SUBSTANCES (09/17/12) INSERT ENDOTRACHEAL TUBE (09/17/12) INSERTION OF ENDOTRACHEAL AIRWAY INTO TRACHEA, VIA OPENING (06/12/17) INSERTION OF INFUSION DEV INTO SUP VENA CAVA, PERC APPROACH (11/13/17) INSERTION OF INFUSION DEVICE INTO UPPER VEIN, PERC APPROACH (10/04/17) INSPECTION OF LARYNX, ENDO (11/30/17) INTRODUCE OF OTH THERAP SUBST INTO RESP TRACT, VIA OPENING (05/03/15) INTRODUCTION OF NUTRITIONAL INTO UP GI, VIA OPENING (06/12/17) NEBULIZER THERAPY (09/17/12) REMOVAL OF TRACHEOSTOMY DEVICE FROM TRACHEA, OPHTHALMIC AIDE APPROACH (06/12/17) RESPIRATORY VENTILATION, 24-96 CONSECUTIVE HOURS (11/13/17) RESPIRATORY VENTILATION, GREATER THAN 96 CONSECUTIVE HOURS (02/27/17) Family History: States: No Known Family Hx - Social History Hx Tobacco Use: No Hx Alcohol Use: No Hx Substance Use: No - Immunization History Hx Tetanus Toxoid Vaccination: No Hx Influenza Vaccination: No Hx Pneumococcal Vaccination: No Review Of Systems Constitutional: Negative for: Fever, Chills Cardiovascular: Negative for: Chest Pain Respiratory: Positive for: Cough, Shortness of Breath, Sputum (thick yellow green) Gastrointestinal: Negative for: Nausea, Vomiting Physical Exam - Physical Exam Appears: In Acute Distress, Agitated, Other (morbildy obese, agitated, writhing, coughing) Skin: Normal Color, Warm, Diaphoretic Head: Atraumatic, Normacephalic Eye(s): bilateral: Normal Inspection Nose: Normal Oral Mucosa: Moist Throat: Other (patent airway with transmitted airway sounds) Neck: Trachea Midline (with patent tracheostomy with copious thick sputum pres ent), Supple Chest: Symmetrical Cardiovascular: Rhythm Regular Respiratory: Normal Breath Sounds (but with persistent coughing and gagging), No Rales, No Rhonchi, No Wheezing Extremity: Normal ROM, Other (no peripheral edema) Neurological/Psych: Oriented x3, Normal Speech ED Course And Treatment - Laboratory Results Result Diagrams: 03/20/18 16:14 03/20/18 16:14 Lab Results: Total Bilirubin 0.5 mg/dL (0.2-1.3) 03/20/18 16:14 AST 23 U/L (14-36) 03/20/18 16:14 ALT 9 U/L (9-52) D 03/20/18 16:14 Alkaline Phosphatase 141 U/L (38-126) H 03/20/18 16:14 Total Protein 9.2 g/dL (6.3-8.3) H 03/20/18 16:14 Albumin 4.7 g/dL (3.5-5.0) 03/20/18 16:14 Globulin 4.5 gm/dL (2.2-3.9) H 03/20/18 16:14 Albumin/Globulin Ratio 1.0 (1.0-2.1) 03/20/18 16:14 Lab Interpretation: Abnormal (WBC 21.4 with normal diff. Glucose) ECG: Interpreted By Me ECG Rhythm: Sinus Tachycardia ECG Interpretation: No Acute Changes O2 Sat by Pulse Oximetry: 96 (RA) Pulse Ox Interpretation: Normal - Radiology CXR: Viewed By Me, Read By Radiologist CXR Interpretation: Yes: Infiltrates (bibasilar, similar to 03/04/18) Reevaluation Time: 17:41 Reassessment Condition: Improved (after several inhalations with albuterol, budesonide and racemic epi.) - Physician Consult Information Outcome Of Conversation: Case discussed with Dr Rosado and Dr Khan. Patient well known to both of them. Dr Rosado agrees to accept her in the ICU for sedation and respiratory ventalitory assistance. Medical Decision Making Medical Decision Making: Suctioning was performed by respiratory therapist and I, the airway was clear of thick tenacious sputum. Even after suctioning, patient continued to be in respiratory distress. However, the pulse O2 saturation is 98 - 100%. Patient was treated with Albuterol, Budesonide, and Racephinephrine. Case discussed with . recommended IV sedation. Disposition - Disposition Disposition: HOSPITALIZED Disposition Time: 17:41 Condition: FAIR - POA Present On Arrival: Poor Glycemic Control - Clinical Impression Clinical Impression: COPD exacerbation, Respiratory distress - Scribe Statement The provider has reviewed the documentation as recorded by the Antonietta Lyon Provider Attestation: All medical record entries made by the Scribe were at my direction and personally dictated by me. I have reviewed the chart and agree that the record accurately reflects my personal performance of the history, physical exam, medical decision making, and the department course for this patient. I have also personally directed, reviewed, and agree with the discharge instructions and disposition.
--- NOTE | 2018-03-20 17:15 | RAD ---
Date of service: 03/20/2018 PROCEDURE: CHEST RADIOGRAPH, 1 VIEW HISTORY: SOB COMPARISON: Chest radiograph dated 03/04/2018. FINDINGS: LUNGS: Prominence of the pulmonary vasculature may be secondary to AP technique and/or pulmonary vascular congestion. Bibasilar infiltrates. PLEURA: No pneumothorax or pleural fluid seen. CARDIOVASCULAR: Aortic atherosclerotic calcifications. Cardiomediastinal silhouette stably enlarged. OSSEOUS STRUCTURES: Unchanged. VISUALIZED UPPER ABDOMEN: Normal. OTHER FINDINGS: Tracheostomy redemonstrated. IMPRESSION: Bibasilar infiltrates.
--- NOTE | 2018-03-20 17:48 | CP.PCM.CON ---
<Rodo Rosado S - Last Filed: 03/20/18 18:34> Meds Allergies/Adverse Reactions: Allergies Allergy/AdvReac Type Severity Reaction Status Date / Time aspirin Allergy ANAPHYLAXIS Verified 03/01/18 16:56 ceftriaxone sodium Allergy ANAPHYLAXIS Verified 03/01/18 16:56 [From Rocephin] ibuprofen [From Motrin] Allergy ANAPHYLAXIS Verified 03/01/18 16:56 iodine Allergy ANAPHYLAXIS Verified 03/01/18 16:56 raspberry Allergy ANAPHYLAXIS Verified 03/01/18 16:56 - Medications Medications: Current Medications Albuterol/Ipratropium (Duoneb 3 Mg/0.5 Mg (3 Ml) Ud) 3 ml INH RQ6 [facility] Heparin Sodium (Porcine) (Heparin) 5,000 units SC Q12H [facility] Aztreonam 2 gm/ Sodium (Chloride) 100 mls @ 200 mls/hr IVPB Q12H [facility]; Protocol Vancomycin HCl 1 gm/ Sodium (Chloride) 250 mls @ 166.7 mls/hr IVPB STAT STA; Protocol Stop: 03/20/18 19:54 Methylprednisolone (Solu-Medrol) 40 mg IVP Q6H [facility] Pantoprazole Sodium (Protonix Inj) 40 mg IVP DAILY [facility] Results - Vital Signs Recent Vital Signs: Last Vital Signs Temp 99.1 F 03/20/18 16:47 Pulse 106 H 03/20/18 16:43 Resp 26 H 03/20/18 16:43 BP 98/64 L 03/20/18 16:43 Pulse Ox 96 03/20/18 17:43 - Labs Result Diagrams: 03/20/18 16:14 03/20/18 16:14 Labs: Laboratory Results - last 24 hr 03/20/18 03/20/18 16:14 16:14 WBC 21.4 H D RBC 5.20 Hgb 12.9 Hct 41.2 MCV 79.3 L MCH 24.8 L MCHC 31.3 L RDW 15.2 H Plt Count 194 MPV 8.0 Neut % (Auto) 74.6 Lymph % (Auto) 18.4 L [place] % (Auto) 5.9 Eos % (Auto) 0.8 Baso % (Auto) 0.3 Neut # (Auto) 16.0 H Lymph # (Auto) 3.9 [place] # (Auto) 1.3 H Eos # (Auto) 0.2 Baso # (Auto) 0.1 Differential Comment Sodium 143 Potassium 4.3 Chloride 106 Carbon Dioxide 27 Anion Gap 15 BUN 18 H Creatinine 0.9 Est GFR ( Amer) > 60 Est GFR (Non-Af Amer) > 60 Random Glucose 197 H Calcium 10.0 Total Bilirubin 0.5 AST 23 ALT 9 D Alkaline Phosphatase 141 H Total Protein 9.2 H Albumin 4.7 Globulin 4.5 H Albumin/Globulin Ratio 1.0 Attending/Attestation - Attestation I have personally seen and examined this patient.: Yes I have fully participated in the care of the patient.: Yes I have reviewed all pertinent clinical information: Yes Notes (Text): 03/20/18 18:35 Patient seen and examined 62-year-old female presented to emergency room with persistent cough and shortness of breath. Chest x-ray consistent with bibasilar infiltrates consistent with pneumonia Patient admitted to intensive care unit for possible vent support and IV sedation IV antibiotics as per infectious disease Follow-up culture and sensitivity Ativan 1 mg every 4 as needed as needed for agitation and anxiety Nebulizer treatment IV steroids <Edis Healy - Last Filed: 03/20/18 19:16> History of Present Illness - History of Present Illness History of Present Illness: PGY-1 ICU consult note for Dr Rosado service cc: SOB cough, s/p tracheostomy Patient is a 62 year old female with pmhx of COPD, HTN, CHF, PNA, s/p tracheostomy came to ED brought by ambulance with shortness of breath, and copious amount of productive cough with green phlegm. As per ED note, machine suction at home was not propertly functioning, and thick phlegm has not been able to be cleared. Patient in respiratory distress when arriving the ER. in ED , suctioning was done buy resp therapist, patient continued to be in RD, with normal O2 sat levels,. Albuterol , budenoside and racemic epi given in ED with improvement of Respiratory distress. Patient transferred to ICU for ventilation placement with sedation. Patient continues to cough at time of encounter PMH: COPD, HTN, CHF, PNA, sp tracheostomy, anxiety, depression, seizures PSH: appendectomy, cholecystectomy, tracheostomy Home meds: As per MAR, Trazodone, Protonix, Singulair, Seroquel, Gabapentin, Lantus, Prednisone, albuterol Social hx: no tobacco, alcohol or drug use. Allergies: ASA, Rocephn, Ibuprofen, Iodine, raspberry Past Patient History - Infectious Disease Hx of Infectious Diseases: None - Tetanus Immunizations Tetanus Immunization: Unknown - Past Medical History & Family History Past Medical History?: Yes - Past Social History Smoking Status: Unknown If Ever Smoked - CARDIAC Hx Congestive Heart Failure: Yes Hx Hypercholesterolemia: No Hx Hypertension: Yes - PULMONARY Hx Asthma: Yes Hx Bronchitis: Yes Hx Chronic Obstructive Pulmonary Disease (COPD): Yes Hx Emphysema: Yes Hx Pneumonia: Yes Hx Sleep Apnea: Yes - NEUROLOGICAL Hx Seizures: Yes - HEENT Hx HEENT Problems: Yes Hx Cataracts: Yes - RENAL Hx Chronic Kidney Disease: No - ENDOCRINE/METABOLIC Hx Hypothyroidism: No - HEMATOLOGICAL/ONCOLOGICAL Hx Human Immunodeficiency Virus (HIV): No - INTEGUMENTARY Hx Dermatological Problems: No - MUSCULOSKELETAL/RHEUMATOLOGICAL Hx Arthritis: No Hx Rheumatoid Arthritis: No - GASTROINTESTINAL Hx Gall Bladder Disease: Yes - GENITOURINARY/GYNECOLOGICAL Hx Sexually Transmitted Disorders: No - PSYCHIATRIC Hx Anxiety: Yes Hx Bipolar Disorder: Yes Hx Depression: Yes Hx Substance Use: No - SURGICAL HISTORY Hx Appendectomy: Yes Hx Cholecystectomy: Yes - ANESTHESIA Hx Anesthesia: Yes Hx Anesthesia Reactions: No Hx Malignant Hyperthermia: No Physical Exam - Constitutional Appears: Non-toxic, No Acute Distress - Head Exam Head Exam: ATRAUMATIC, NORMAL INSPECTION, NORMOCEPHALIC - Eye Exam Eye Exam: EOMI, Normal appearance - ENT Exam ENT Exam: Mucous Membranes Moist - Neck Exam Additional comments: tracheostomy with O2 - Respiratory Exam Respiratory Exam: Rales, Wheezes. absent: Clear to Auscultation Bilateral, Respiratory Distress - Cardiovascular Exam Cardiovascular Exam: Tachycardia, +S1, +S2 - GI/Abdominal Exam GI & Abdominal Exam: Distended, Normal Bowel Sounds, Soft. absent: Tenderness - Extremities Exam Extremities exam: Positive for: normal inspection. Negative for: pedal edema, tenderness - Neurological Exam Neurological exam: Alert, Oriented x3 - Psychiatric Exam Psychiatric exam: Anxious - Skin Skin Exam: Dry, Normal Color, Warm Results - Vital Signs Recent Vital Signs: Last Vital Signs Temp 99.1 F 03/20/18 16:47 Pulse 106 H 03/20/18 16:43 Resp 26 H 03/20/18 16:43 BP 98/64 L 03/20/18 16:43 Pulse Ox 96 03/20/18 17:43 - Labs Result Diagrams: 03/20/18 16:14 03/20/18 16:14 Labs: Laboratory Results - last 24 hr 03/20/18 03/20/18 16:14 16:14 WBC 21.4 H D RBC 5.20 Hgb 12.9 Hct 41.2 MCV 79.3 L MCH 24.8 L MCHC 31.3 L RDW 15.2 H Plt Count 194 MPV 8.0 Neut % (Auto) 74.6 Lymph % (Auto) 18.4 L [place] % (Auto) 5.9 Eos % (Auto) 0.8 Baso % (Auto) 0.3 Neut # (Auto) 16.0 H Lymph # (Auto) 3.9 [place] # (Auto) 1.3 H Eos # (Auto) 0.2 Baso # (Auto) 0.1 Differential Comment Sodium 143 Potassium 4.3 Chloride 106 Carbon Dioxide 27 Anion Gap 15 BUN 18 H Creatinine 0.9 Est GFR ( Amer) > 60 Est GFR (Non-Af Amer) > 60 Random Glucose 197 H Calcium 10.0 Total Bilirubin 0.5 AST 23 ALT 9 D Alkaline Phosphatase 141 H Total Protein 9.2 H Albumin 4.7 Globulin 4.5 H Albumin/Globulin Ratio 1.0 Assessment & Plan - Assessment and Plan (Free Text) Plan: 62 year old female with history of COPD, HTN, CHF, sp tracheostomy who presented with respiratory distress, with copious amount of cough, misfunctioning machine suction, came to ED with RD, albuterol, budenoside and racemic epi given in ED. transferred to ICU for monitoring of trache, possible ventilation with sedation, not on resp distress at time of encounter, sat O2 wnl. Neuro: no acute issues at this time ativan 1mg PRN for anxiety/agitation Cardiovascular Hemodynamically stable continue to monitor vitals Pulmonary O2 via trach collar Chest xray - Bibasilar infiltrates - Most likely PNA Aztreonam Q12H Vanc x 1 dose Aspirate culture - sputum culture Will consider ventilation and sedation if patient desat/resp distress returns duonebs solumedrol 40 Q6H Flu, Legionella, Mycoplasma - f.u GI Protonix Renal I&Os Heme H/H stable at this time Endo Maintain euglycemia Accuchecks ACHS ID WBC - 21.4 Vanc, Aztrreonam as stated above blood, urine, sputum atypicals Dr Cheo Celis - f/u f/u blood work tylenol PRN for fever PPX DVT- heparin, scds GI- protonix Case discussed with Dr. Alonzo Healy, PGY-1 - Date & Time Date: 03/20/18 Time: 18:07
[2018-03-20] MEDS: MethylPREDNISolone 40 mg Vial IVP SCH (19:06)
[2018-03-20] MEDS: Albuterol-Ipratrop 3 mg / 0.5 (3 ml) UD INH SCH (20:05)
[2018-03-20] MEDS: Aztreonam 2 GM in Sodium Chloride 0.9% 100 ML IVPB SCH (21:00)
--- NOTE | 2018-03-20 22:53 | CP.PCM.HP ---
Present on Admission - Present on Admission Any Indicators Present on Admission: Yes History of Uncontrolled Diabetes: Yes Past Patient History - Infectious Disease Hx of Infectious Diseases: None - Tetanus Immunizations Tetanus Immunization: Unknown - Past Medical History & Family History Past Medical History?: Yes - Past Social History Smoking Status: Unknown If Ever Smoked - CARDIAC Hx Congestive Heart Failure: Yes Hx Hypercholesterolemia: No Hx Hypertension: Yes - PULMONARY Hx Asthma: Yes Hx Bronchitis: Yes Hx Chronic Obstructive Pulmonary Disease (COPD): Yes Hx Emphysema: Yes Hx Pneumonia: Yes Hx Sleep Apnea: Yes - NEUROLOGICAL Hx Seizures: Yes - HEENT Hx HEENT Problems: Yes Hx Cataracts: Yes - RENAL Hx Chronic Kidney Disease: No - ENDOCRINE/METABOLIC Hx Hypothyroidism: No - HEMATOLOGICAL/ONCOLOGICAL Hx Human Immunodeficiency Virus (HIV): No - INTEGUMENTARY Hx Dermatological Problems: No - MUSCULOSKELETAL/RHEUMATOLOGICAL Hx Arthritis: No Hx Rheumatoid Arthritis: No - GASTROINTESTINAL Hx Gall Bladder Disease: Yes - GENITOURINARY/GYNECOLOGICAL Hx Sexually Transmitted Disorders: No - PSYCHIATRIC Hx Anxiety: Yes Hx Bipolar Disorder: Yes Hx Depression: Yes Hx Substance Use: No - SURGICAL HISTORY Hx Appendectomy: Yes Hx Cholecystectomy: Yes - ANESTHESIA Hx Anesthesia: Yes Hx Anesthesia Reactions: No Hx Malignant Hyperthermia: No Meds Allergies/Adverse Reactions: Allergies Allergy/AdvReac Type Severity Reaction Status Date / Time aspirin Allergy ANAPHYLAXIS Verified 03/01/18 16:56 ceftriaxone sodium Allergy ANAPHYLAXIS Verified 03/01/18 16:56 [From Rocephin] ibuprofen [From Motrin] Allergy ANAPHYLAXIS Verified 03/01/18 16:56 iodine Allergy ANAPHYLAXIS Verified 03/01/18 16:56 raspberry Allergy ANAPHYLAXIS Verified 03/01/18 16:56 Results - Vital Signs Recent Vital Signs: Last Vital Signs Temp 98.5 F 03/20/18 20:00 Pulse 95 H 03/20/18 22:06 Resp 25 H 03/20/18 22:06 BP 131/74 03/20/18 22:06 Pulse Ox 98 03/20/18 22:06 - Labs Result Diagrams: 03/20/18 16:14 03/20/18 16:14 Labs: Laboratory Results - last 24 hr 03/20/18 03/20/18 03/20/18 16:14 16:14 21:03 WBC 21.4 H D RBC 5.20 Hgb 12.9 Hct 41.2 MCV 79.3 L MCH 24.8 L MCHC 31.3 L RDW 15.2 H Plt Count 194 MPV 8.0 Neut % (Auto) 74.6 Lymph % (Auto) 18.4 L [place] % (Auto) 5.9 Eos % (Auto) 0.8 Baso % (Auto) 0.3 Neut # (Auto) 16.0 H Lymph # (Auto) 3.9 [place] # (Auto) 1.3 H Eos # (Auto) 0.2 Baso # (Auto) 0.1 Differential Comment Sodium 143 Potassium 4.3 Chloride 106 Carbon Dioxide 27 Anion Gap 15 BUN 18 H Creatinine 0.9 Est GFR ( Amer) > 60 Est GFR (Non-Af Amer) > 60 POC Glucose (mg/dL) Random Glucose 197 H Calcium 10.0 Total Bilirubin 0.5 AST 23 ALT 9 D Alkaline Phosphatase 141 H Total Protein 9.2 H Albumin 4.7 Globulin 4.5 H Albumin/Globulin Ratio 1.0 Influenza Typ A,B (EIA) Ur L.pneumophila Ag Negative Mycoplasma pneumon IgM 03/20/18 03/20/18 03/20/18 21:03 21:03 21:34 WBC RBC Hgb Hct MCV MCH MCHC RDW Plt Count MPV Neut % (Auto) Lymph % (Auto) [place] % (Auto) Eos % (Auto) Baso % (Auto) Neut # (Auto) Lymph # (Auto) [place] # (Auto) Eos # (Auto) Baso # (Auto) Differential Comment Sodium Potassium Chloride Carbon Dioxide Anion Gap BUN Creatinine Est GFR ( Amer) Est GFR (Non-Af Amer) POC Glucose (mg/dL) 222 H Random Glucose Calcium Total Bilirubin AST ALT Alkaline Phosphatase Total Protein Albumin Globulin Albumin/Globulin Ratio Influenza Typ A,B (EIA) Negative for flu a/b Ur L.pneumophila Ag Mycoplasma pneumon IgM Negative
[2018-03-21] MEDS: MethylPREDNISolone 40 mg Vial IVP SCH ×4 (00:30→17:29)
[2018-03-21] MEDS: Albuterol-Ipratrop 3 mg / 0.5 (3 ml) UD INH SCH ×4 (03:59→20:26)
[2018-03-21 06:09] LABS: BASO % 0.3 % (0.0-2.0); HEMOGLOBIN 11.7 g/dL (11.0-16.0); LYMPH # 1.3 K/uL (1.0-4.3); LYMPH % 9.3 % (20.0-40.0); MEAN CELL VOLUME 80.8 fL (81.0-99.0); MEAN CORPUSCULAR HEMOGLOBIN 25.2 pg (27.0-31.0); MEAN CORPUSCULAR HGB CONC 31.2 g/dL (33.0-37.0); MEAN PLATELET VOLUME 8.1 fL (7.2-11.7); MONO # 0.5 K/uL (0.0-0.8); MONO % 3.5 % (0.0-10.0); NEUT # 12.6 K/uL (1.8-7.0); NEUT % 86.9 % (50.0-75.0); PLATELET COUNT 178 K/uL (130-400); RBC 4.62 Mil/uL (3.80-5.20); RED CELL DISTRIBUTION WIDTH 14.8 % (11.5-14.5); WHITE BLOOD COUNT 14.5 K/uL (4.8-10.8)
[2018-03-21 06:30] LABS: ALB/GLOB RATIO 0.9 (1.0-2.1); ALT/SGPT < 6 U/L (9-52); AST/SGOT 20 U/L (14-36); BLOOD UREA NITROGEN 19 mg/dL (7-17); CALCIUM 9.1 mg/dl (8.6-10.4); GFR NON-AFRICAN AMERICAN > 60
[2018-03-21] MEDS: (Novolin R) Insulin Human Regular 100 units/ml vial SC SCH ×4 (08:30→21:55)
[2018-03-21 08:50] LABS: LYMPHOCYTE 6 % (20-40); MONOCYTE 2 % (0-10); NEUTROPHIL 92 % (50-75); PLATELET ESTIMATE NORMAL (NORMAL); TOTAL CELLS COUNTED 100
[2018-03-21] MEDS: Aztreonam 2 GM in Sodium Chloride 0.9% 100 ML IVPB SCH ×2 (09:00→19:50)
[2018-03-21] MEDS: guaiFENesin 600 mg ER Tab PO SCH ×3 (09:20→17:25)
[2018-03-21] MEDS: QUEtiapine 200 mg XR Tab PO SCH ×2 (09:20→22:00)
[2018-03-21] MEDS ORDERED: Pantoprazole 20 mg EC Tab PO SCH (10:00)
--- NOTE | 2018-03-21 11:13 | CARD ---
APPROVED REPORT Date of service: 03/20/2018 EKG Measurement Heart [id number] <Conclusion> Sinus tachycardia Cannot rule out Anterior infarct, age undetermined Abnormal ECG
--- NOTE | 2018-03-21 12:35 | CP.CCUPN ---
<Edis Healy - Last Filed: 03/21/18 16:21> CCU Subjective - Physician Review Subjective (Free Text): PGY-[address] ICU progress note for Dr Cooper Patient is seen and examined at bedside. No acute events overnight reported. Patient motions with hands, complaining of coughing, chest pain, and abdominal pain. Patient cleans tracheostomy with tissues. Unable to obtain complete ROS due to patient's limited verbal status due to tracheostomy. Critical Care Time Spent (in minutes): 35 CCU Objective - Vital Signs / Intake & Output Vital Signs (Last 4 hours): Vital Signs Temp Pulse Resp BP Pulse Ox 03/21/18 12:06 84 29 H 115/68 93 L 03/21/18 12:00 97.6 F 82 33 H 93 L 03/21/18 11:06 87 31 H 138/74 91 L 03/21/18 11:00 83 32 H 91 L 03/21/18 10:19 92 H 10 L 124/70 96 03/21/18 10:00 86 35 H 93 L 03/21/18 09:00 79 20 97 Intake and Output (Last 8hrs): Intake & Output 03/20/18 03/21/18 03/21/18 22:59 06:59 14:59 Intake Total 350 0 0 Output Total 400 500 Balance -50 -500 0 Weight 282 lb Intake: Intake, IV Amount 350 Left Antecubital 350 Oral 0 0 Output: Urine 400 500 Urine, Voided 400 500 Other: Voiding Method Bedpan # Voids Urine, Voided 1 0 0 - Physical Exam Head: Positive for: Atraumatic, Normocephalic Pupils: Positive for: PERRL Extroacular Muscles: Positive for: EOMI Conjunctiva: Positive for: Normal Mouth: Positive for: Moist Mucous Membranes Neck: Positive for: Other (tracheostomy with O2 tube in place ) Respiratory/Chest: Positive for: Rhonchi. Negative for: Respiratory Distress, Accessory Muscle Use, Wheezes, Decreased Breath Sounds Cardiovascular: Positive for: Regular Rate and Rhythm, Murmurs Abdomen: Positive for: Tenderness (to deep palpation diffusely ), Normal Bowel Sounds. Negative for: Distention Upper Extremity: Positive for: Normal Inspection, Edema Lower Extremity: Positive for: Normal Inspection, Edema, Tenderness Neurological: Positive for: CN II-XII Intact Skin: Positive for: Warm, Dry Psychiatric: Positive for: Alert, Oriented x 3 - Medications Active Medications: Active Medications Generic Name Dose Route Start Last Admin Trade Name Freq PRN Reason Stop Dose Admin Acetaminophen 650 mg 03/20/18 18:42 Tylenol 325mg Tab PO Q6 PRN Fever >100.4 F Acetaminophen 650 mg 03/20/18 22:50 Tylenol 325mg Tab PO Q6H PRN Pain, Mild (1-3) Albuterol/Ipratropium 3 ml 03/20/18 20:00 03/21/18 07:58 Duoneb 3 Mg/0.5 Mg (3 Ml) Ud INH 3 ml RQ6 SHAYLA Administration Gabapentin 800 mg 03/21/18 10:00 03/21/18 09:19 Neurontin PO 800 mg TID SHAYLA Administration Guaifenesin 600 mg 03/21/18 10:00 03/21/18 09:20 Mucinex La PO 600 mg TID SHAYLA Administration Heparin Sodium (Porcine) 5,000 units 03/20/18 18:30 03/21/18 06:05 Heparin SC 5,000 units Q12H SHAYLA Administration Aztreonam 2 gm/ Sodium 100 mls @ 100 mls/hr 03/20/18 20:00 03/21/18 09:00 Chloride IVPB 100 mls/hr Q12H SHAYLA Administration Protocol Insulin Glargine 17 unit 03/21/18 22:00 Lantus SC HS [facility] Insulin Human Regular 0 unit 03/21/18 07:30 03/21/18 08:30 Novolin R SC 4 u ACHS [facility] Administration Protocol Lorazepam 1 mg 03/20/18 19:07 03/21/18 10:10 Ativan IVP 1 mg Q4H PRN Administration Anxiety Lorazepam 2 mg 03/20/18 22:50 Ativan PO Q12H PRN Anxiety Methylprednisolone 40 mg 03/20/18 18:30 03/21/18 06:06 Solu-Medrol IVP 40 mg Q6H SHAYLA Administration Montelukast Sodium 10 mg 03/21/18 22:00 Singulair PO HS SHAYLA Oxycodone/Acetaminophen 1 tab 03/20/18 22:50 Percocet 5/325 Mg Tab PO 03/23/18 22:51 Q4H PRN Pain, severe (8-10) Pantoprazole Sodium 40 mg 03/21/18 10:00 03/21/18 09:20 Protonix Inj IVP 40 mg DAILY SHAYLA Administration Quetiapine Fumarate 400 mg 03/21/18 10:00 03/21/18 09:20 Seroquel Xr PO 400 mg Q12 SHAYLA Administration Sertraline HCl 100 mg 03/21/18 10:00 03/21/18 09:19 Zoloft PO 100 mg BID SHAYLA Administration Trazodone HCl 150 mg 03/21/18 22:00 Desyrel PO HS SHAYLA - Patient Studies Lab Studies: Microbiology Studies 03/20/18 21:03 Gram Stain - Final Trachasp Lab Studies 03/21/18 03/21/18 03/21/18 Range/Units 11:35 07:29 05:42 WBC (4.8-10.8) K/uL RBC (3.80-5.20) Mil/uL Hgb (11.0-16.0) g/dL Hct (34.0-47.0) % MCV (81.0-99.0) fL MCH (27.0-31.0) pg MCHC (33.0-37.0) g/dL RDW (11.5-14.5) % Plt Count (130-400) K/uL MPV (7.2-11.7) fL Neut % (Auto) (50.0-75.0) % Lymph % (Auto) (20.0-40.0) % [place] % (Auto) (0.0-10.0) % Eos % (Auto) (0.0-4.0) % Baso % (Auto) (0.0-2.0) % Neut # (Auto) (1.8-7.0) K/uL Lymph # (Auto) (1.0-4.3) K/uL [place] # (Auto) (0.0-0.8) K/uL Eos # (Auto) (0.0-0.7) K/uL Baso # (Auto) (0.0-0.2) K/uL Neutrophils % (Manual) (50-75) % Lymphocytes % (Manual) (20-40) % Monocytes % (Manual) (0-10) % Differential Comment Platelet Estimate (NORMAL) RBC Morphology Sodium 138 (132-148) mmol/L Potassium 4.7 (3.6-5.2) mmol/L Chloride 105 (98-107) mmol/L Carbon Dioxide 24 (22-30) mmol/L Anion Gap 13 (10-20) BUN 19 H (7-17) mg/dL Creatinine 0.7 (0.7-1.2) mg/dL Est GFR ( Amer) > 60 Est GFR (Non-Af Amer) > 60 POC Glucose (mg/dL) 344 H 296 H (65-110) mg/dL Random Glucose 295 H D (65-105) mg/dL Calcium 9.1 (8.6-10.4) mg/dl Phosphorus 4.4 (2.5-4.5) mg/dL Magnesium 1.8 (1.6-2.3) mg/dL Total Bilirubin 0.5 (0.2-1.3) mg/dL AST 20 (14-36) U/L ALT < 6 L D (9-52) U/L Alkaline Phosphatase 112 (38-126) U/L Total Protein 8.2 (6.3-8.3) g/dL Albumin 4.0 (3.5-5.0) g/dL Globulin 4.2 H (2.2-3.9) gm/dL Albumin/Globulin Ratio 0.9 L (1.0-2.1) Influenza Typ A,B (EIA) (NEGATIVE) Ur L.pneumophila Ag (NEGATIVE) Mycoplasma pneumon IgM (NEGATIVE) 03/21/18 03/20/18 03/20/18 Range/Units 05:42 21:34 21:03 WBC 14.5 H (4.8-10.8) K/uL RBC 4.62 (3.80-5.20) Mil/uL Hgb 11.7 (11.0-16.0) g/dL Hct 37.4 (34.0-47.0) % MCV 80.8 L (81.0-99.0) fL MCH 25.2 L (27.0-31.0) pg MCHC 31.2 L (33.0-37.0) g/dL RDW 14.8 H (11.5-14.5) % Plt Count 178 (130-400) K/uL MPV 8.1 (7.2-11.7) fL Neut % (Auto) 86.9 H (50.0-75.0) % Lymph % (Auto) 9.3 L (20.0-40.0) % [place] % (Auto) 3.5 (0.0-10.0) % Eos % (Auto) 0.0 (0.0-4.0) % Baso % (Auto) 0.3 (0.0-2.0) % Neut # (Auto) 12.6 H (1.8-7.0) K/uL Lymph # (Auto) 1.3 (1.0-4.3) K/uL [place] # (Auto) 0.5 (0.0-0.8) K/uL Eos # (Auto) 0.0 (0.0-0.7) K/uL Baso # (Auto) 0.0 (0.0-0.2) K/uL Neutrophils % (Manual) 92 H (50-75) % Lymphocytes % (Manual) 6 L (20-40) % Monocytes % (Manual) 2 (0-10) % Differential Comment Platelet Estimate Normal (NORMAL) RBC Morphology Normal Sodium (132-148) mmol/L Potassium (3.6-5.2) mmol/L Chloride (98-107) mmol/L Carbon Dioxide (22-30) mmol/L Anion Gap (10-20) BUN (7-17) mg/dL Creatinine (0.7-1.2) mg/dL Est GFR ( Amer) Est GFR (Non-Af Amer) POC Glucose (mg/dL) 222 H (65-110) mg/dL Random Glucose (65-105) mg/dL Calcium (8.6-10.4) mg/dl Phosphorus (2.5-4.5) mg/dL Magnesium (1.6-2.3) mg/dL Total Bilirubin (0.2-1.3) mg/dL AST (14-36) U/L ALT (9-52) U/L Alkaline Phosphatase (38-126) U/L Total Protein (6.3-8.3) g/dL Albumin (3.5-5.0) g/dL Globulin (2.2-3.9) gm/dL Albumin/Globulin Ratio (1.0-2.1) Influenza Typ A,B (EIA) (NEGATIVE) Ur L.pneumophila Ag (NEGATIVE) Mycoplasma pneumon IgM Negative (NEGATIVE) 03/20/18 03/20/18 03/20/18 Range/Units 21:03 21:03 16:14 WBC (4.8-10.8) K/uL RBC (3.80-5.20) Mil/uL Hgb (11.0-16.0) g/dL Hct (34.0-47.0) % MCV (81.0-99.0) fL MCH (27.0-31.0) pg MCHC (33.0-37.0) g/dL RDW (11.5-14.5) % Plt Count (130-400) K/uL MPV (7.2-11.7) fL Neut % (Auto) (50.0-75.0) % Lymph % (Auto) (20.0-40.0) % [place] % (Auto) (0.0-10.0) % Eos % (Auto) (0.0-4.0) % Baso % (Auto) (0.0-2.0) % Neut # (Auto) (1.8-7.0) K/uL Lymph # (Auto) (1.0-4.3) K/uL [place] # (Auto) (0.0-0.8) K/uL Eos # (Auto) (0.0-0.7) K/uL Baso # (Auto) (0.0-0.2) K/uL Neutrophils % (Manual) (50-75) % Lymphocytes % (Manual) (20-40) % Monocytes % (Manual) (0-10) % Differential Comment Platelet Estimate (NORMAL) RBC Morphology Sodium 143 (132-148) mmol/L Potassium 4.3 (3.6-5.2) mmol/L Chloride 106 (98-107) mmol/L Carbon Dioxide 27 (22-30) mmol/L Anion Gap 15 (10-20) BUN 18 H (7-17) mg/dL Creatinine 0.9 (0.7-1.2) mg/dL Est GFR ( Amer) > 60 Est GFR (Non-Af Amer) > 60 POC Glucose (mg/dL) (65-110) mg/dL Random Glucose 197 H (65-105) mg/dL Calcium 10.0 (8.6-10.4) mg/dl Phosphorus (2.5-4.5) mg/dL Magnesium (1.6-2.3) mg/dL Total Bilirubin 0.5 (0.2-1.3) mg/dL AST 23 (14-36) U/L ALT 9 D (9-52) U/L Alkaline Phosphatase 141 H (38-126) U/L Total Protein 9.2 H (6.3-8.3) g/dL Albumin 4.7 (3.5-5.0) g/dL Globulin 4.5 H (2.2-3.9) gm/dL Albumin/Globulin Ratio 1.0 (1.0-2.1) Influenza Typ A,B (EIA) Negative for flu a/b (NEGATIVE) Ur L.pneumophila Ag Negative (NEGATIVE) Mycoplasma pneumon IgM (NEGATIVE) 03/20/18 Range/Units 16:14 WBC 21.4 H D (4.8-10.8) K/uL RBC 5.20 (3.80-5.20) Mil/uL Hgb 12.9 (11.0-16.0) g/dL Hct 41.2 (34.0-47.0) % MCV 79.3 L (81.0-99.0) fL MCH 24.8 L (27.0-31.0) pg MCHC 31.3 L (33.0-37.0) g/dL RDW 15.2 H (11.5-14.5) % Plt Count 194 (130-400) K/uL MPV 8.0 (7.2-11.7) fL Neut % (Auto) 74.6 (50.0-75.0) % Lymph % (Auto) 18.4 L (20.0-40.0) % [place] % (Auto) 5.9 (0.0-10.0) % Eos % (Auto) 0.8 (0.0-4.0) % Baso % (Auto) 0.3 (0.0-2.0) % Neut # (Auto) 16.0 H (1.8-7.0) K/uL Lymph # (Auto) 3.9 (1.0-4.3) K/uL [place] # (Auto) 1.3 H (0.0-0.8) K/uL Eos # (Auto) 0.2 (0.0-0.7) K/uL Baso # (Auto) 0.1 (0.0-0.2) K/uL Neutrophils % (Manual) (50-75) % Lymphocytes % (Manual) (20-40) % Monocytes % (Manual) (0-10) % Differential Comment Platelet Estimate (NORMAL) RBC Morphology Sodium (132-148) mmol/L Potassium (3.6-5.2) mmol/L Chloride (98-107) mmol/L Carbon Dioxide (22-30) mmol/L Anion Gap (10-20) BUN (7-17) mg/dL Creatinine (0.7-1.2) mg/dL Est GFR ( Amer) Est GFR (Non-Af Amer) POC Glucose (mg/dL) (65-110) mg/dL Random Glucose (65-105) mg/dL Calcium (8.6-10.4) mg/dl Phosphorus (2.5-4.5) mg/dL Magnesium (1.6-2.3) mg/dL Total Bilirubin (0.2-1.3) mg/dL AST (14-36) U/L ALT (9-52) U/L Alkaline Phosphatase (38-126) U/L Total Protein (6.3-8.3) g/dL Albumin (3.5-5.0) g/dL Globulin (2.2-3.9) gm/dL Albumin/Globulin Ratio (1.0-2.1) Influenza Typ A,B (EIA) (NEGATIVE) Ur L.pneumophila Ag (NEGATIVE) Mycoplasma pneumon IgM (NEGATIVE) Laboratory Results - last 24 hr 03/20/18 03/20/18 03/20/18 16:14 16:14 21:03 WBC 21.4 H D RBC 5.20 Hgb 12.9 Hct 41.2 MCV 79.3 L MCH 24.8 L MCHC 31.3 L RDW 15.2 H Plt Count 194 MPV 8.0 Neut % (Auto) 74.6 Lymph % (Auto) 18.4 L [place] % (Auto) 5.9 Eos % (Auto) 0.8 Baso % (Auto) 0.3 Neut # (Auto) 16.0 H Lymph # (Auto) 3.9 [place] # (Auto) 1.3 H Eos # (Auto) 0.2 Baso # (Auto) 0.1 Neutrophils % (Manual) Lymphocytes % (Manual) Monocytes % (Manual) Differential Comment Platelet Estimate RBC Morphology Sodium 143 Potassium 4.3 Chloride 106 Carbon Dioxide 27 Anion Gap 15 BUN 18 H Creatinine 0.9 Est GFR ( Amer) > 60 Est GFR (Non-Af Amer) > 60 POC Glucose (mg/dL) Random Glucose 197 H Calcium 10.0 Phosphorus Magnesium Total Bilirubin 0.5 AST 23 ALT 9 D Alkaline Phosphatase 141 H Total Protein 9.2 H Albumin 4.7 Globulin 4.5 H Albumin/Globulin Ratio 1.0 Influenza Typ A,B (EIA) Ur L.pneumophila Ag Negative Mycoplasma pneumon IgM 03/20/18 03/20/18 03/20/18 21:03 21:03 21:34 WBC RBC Hgb Hct MCV MCH MCHC RDW Plt Count MPV Neut % (Auto) Lymph % (Auto) [place] % (Auto) Eos % (Auto) Baso % (Auto) Neut # (Auto) Lymph # (Auto) [place] # (Auto) Eos # (Auto) Baso # (Auto) Neutrophils % (Manual) Lymphocytes % (Manual) Monocytes % (Manual) Differential Comment Platelet Estimate RBC Morphology Sodium Potassium Chloride Carbon Dioxide Anion Gap BUN Creatinine Est GFR ( Amer) Est GFR (Non-Af Amer) POC Glucose (mg/dL) 222 H Random Glucose Calcium Phosphorus Magnesium Total Bilirubin AST ALT Alkaline Phosphatase Total Protein Albumin Globulin Albumin/Globulin Ratio Influenza Typ A,B (EIA) Negative for flu a/b Ur L.pneumophila Ag Mycoplasma pneumon IgM Negative 03/21/18 03/21/18 03/21/18 05:42 05:42 07:29 WBC 14.5 H RBC 4.62 Hgb 11.7 Hct 37.4 MCV 80.8 L MCH 25.2 L MCHC 31.2 L RDW 14.8 H Plt Count 178 MPV 8.1 Neut % (Auto) 86.9 H Lymph % (Auto) 9.3 L [place] % (Auto) 3.5 Eos % (Auto) 0.0 Baso % (Auto) 0.3 Neut # (Auto) 12.6 H Lymph # (Auto) 1.3 [place] # (Auto) 0.5 Eos # (Auto) 0.0 Baso # (Auto) 0.0 Neutrophils % (Manual) 92 H Lymphocytes % (Manual) 6 L Monocytes % (Manual) 2 Differential Comment Platelet Estimate Normal RBC Morphology Normal Sodium 138 Potassium 4.7 Chloride 105 Carbon Dioxide 24 Anion Gap 13 BUN 19 H Creatinine 0.7 Est GFR ( Amer) > 60 Est GFR (Non-Af Amer) > 60 POC Glucose (mg/dL) 296 H Random Glucose 295 H D Calcium 9.1 Phosphorus 4.4 Magnesium 1.8 Total Bilirubin 0.5 AST 20 ALT < 6 L D Alkaline Phosphatase 112 Total Protein 8.2 Albumin 4.0 Globulin 4.2 H Albumin/Globulin Ratio 0.9 L Influenza Typ A,B (EIA) Ur L.pneumophila Ag Mycoplasma pneumon IgM 03/21/18 11:35 WBC RBC Hgb Hct MCV MCH MCHC RDW Plt Count MPV Neut % (Auto) Lymph % (Auto) [place] % (Auto) Eos % (Auto) Baso % (Auto) Neut # (Auto) Lymph # (Auto) [place] # (Auto) Eos # (Auto) Baso # (Auto) Neutrophils % (Manual) Lymphocytes % (Manual) Monocytes % (Manual) Differential Comment Platelet Estimate RBC Morphology Sodium Potassium Chloride Carbon Dioxide Anion Gap BUN Creatinine Est GFR ( Amer) Est GFR (Non-Af Amer) POC Glucose (mg/dL) 344 H Random Glucose Calcium Phosphorus Magnesium Total Bilirubin AST ALT Alkaline Phosphatase Total Protein Albumin Globulin Albumin/Globulin Ratio Influenza Typ A,B (EIA) Ur L.pneumophila Ag Mycoplasma pneumon IgM Radiology Impressions: Radiology Impressions Chest X-Ray 03/20/18 15:34 IMPRESSION: Bibasilar infiltrates. EKG/Cardiology Studies: Cardiology / EKG Studies 03/20/18 15:34 ELECTROCARDIOGRAM Stat Comment: Mode Of Transportation: BED Reason For Exam: SOB Fingerstick Blood Sugar Results: 222 Critical Care Progress Note - Nutrition Nutrition: Nutrition Category Date Time Status NPO Diet [DIET] Diets 03/20/18 Dinner Active Assessment/Plan - Assessment and Plan (Free Text) Plan: 62 year old female with history of COPD, HTN, CHF, sp tracheostomy who presented with respiratory distress, with copious amount of cough, misfunctioning machine suction, came to ED with RD, albuterol, budenoside and racemic epi given in ED. transferred to ICU for monitoring of trache and COPD exarcerbation, no ventilation needed at this time, continue with O2 via trach collar and abx/nathalie roid treatment. Neuro: no acute issues at this time ativan 1mg PRN for anxiety/agitation hx of depression, anxiety bipolar continue home meds trazodone, zoloft seroquel, gabapentin Cardiovascular Hemodynamically stable continue to monitor vitals Pulmonary COPD exarcerbation O2 via trach collar Chest xray - Bibasilar infiltrates continue Aztreonam Q12H Aspirate culture - sputum culture duonebs continue solumedrol 40 Q6H Flu, Legionella, Mycoplasma - negative montelukast Mucinex GI Protonix Renal I&Os Heme H/H stable at this time Endo ISS ACHS Lantus 17 Unit SC HS accuchecks hypoglycemia protocol ID WBC - downtrending to 14.5 from 21 continue Aztreonam blood, urine, sputum Dr Cheo Celis - f/u tylenol PRN for fever PPX DVT- heparin, scds GI- protonix Case discussed with Dr Kenneth Healy, PGY-1 - Date & Time Date: 03/21/18 Time: 08:40 <Tayo Cooper - Last Filed: 03/26/18 07:47> CCU Objective - Vital Signs / Intake & Output Vital Signs (Last 4 hours): Vital Signs Pulse Resp Pulse Ox 03/26/18 07:00 68 20 96 03/26/18 06:00 69 19 97 03/26/18 05:00 71 18 98 03/26/18 04:00 71 21 96 Intake and Output (Last 8hrs): Intake & Output 03/25/18 03/26/18 03/26/18 22:59 06:59 14:59 Intake Total 600 100 Output Total 700 Balance -100 100 Intake: Intake, IV Amount 200 100 left lower forearm 200 100 Oral 400 Output: Urine 700 Urine, Voided 700 Stool 0 Other: # Voids Urine, Voided 2 - Medications Active Medications: Active Medications Generic Name Dose Route Start Last Admin Trade Name Freq PRN Reason Stop Dose Admin Acetaminophen 650 mg 03/20/18 18:42 03/24/18 11:42 Tylenol 325mg Tab PO 650 mg Q6 PRN Administration Fever >100.4 F Acetaminophen 650 mg 03/20/18 22:50 03/25/18 13:15 Tylenol 325mg Tab PO 650 mg Q6H PRN Administration Pain, Mild (1-3) Albuterol/Ipratropium 3 ml 03/20/18 20:00 03/26/18 01:42 Duoneb 3 Mg/0.5 Mg (3 Ml) Ud INH 3 ml RQ6 SHAYLA Administration Gabapentin 800 mg 03/21/18 10:00 03/25/18 17:21 Neurontin PO 800 mg TID SHAYLA Administration Guaifenesin 600 mg 03/21/18 10:00 03/25/18 17:21 Mucinex La PO 600 mg TID SHAYLA Administration Heparin Sodium (Porcine) 5,000 units 03/25/18 22:00 03/25/18 22:11 Heparin SC 5,000 units Q12 SHAYLA Administration Meropenem 1 gm/ Sodium 100 mls @ 100 mls/hr 03/25/18 13:00 03/25/18 22:51 Chloride IVPB 100 mls/hr Q8H HSAYLA Administration Protocol Insulin Glargine 17 unit 03/21/18 22:00 03/25/18 22:14 Lantus SC 17 units HS SHAYLA Administration Insulin Human Regular 0 unit 03/21/18 07:30 03/25/18 23:33 Novolin R SC 3 units ACHS SHAYLA Administration Protocol Lorazepam 1 mg 03/20/18 19:07 03/25/18 22:22 Ativan IVP 1 mg Q4H PRN Administration Anxiety Lorazepam 2 mg 03/20/18 22:50 03/23/18 16:22 Ativan PO 2 mg Q12H PRN Administration Anxiety Magnesium Hydroxide 30 ml 03/25/18 11:30 Milk Of Magnesia PO DAILY PRN Constipation Methylprednisolone 40 mg 03/23/18 22:00 03/25/18 22:08 Solu-Medrol IVP 40 mg Q12 SHAYLA Administration Montelukast Sodium 10 mg 03/21/18 22:00 03/25/18 22:08 Singulair PO 10 mg HS SHAYLA Administration Mupirocin 0.25 gm 03/22/18 10:00 03/25/18 17:21 Bactroban 2% Nasal LINA 0.25 gm BID SHAYLA Administration Pantoprazole Sodium 40 mg 03/21/18 10:00 03/25/18 09:35 Protonix Inj IVP 40 mg DAILY SHAYLA Administration Quetiapine Fumarate 400 mg 03/21/18 10:00 03/25/18 22:54 Seroquel Xr PO 400 mg Q12 SHAYLA Administration Sertraline HCl 100 mg 03/21/18 10:00 03/25/18 17:21 Zoloft PO 100 mg BID SHAYLA Administration Trazodone HCl 150 mg 03/21/18 22:00 03/25/18 22:52 Desyrel PO 150 mg HS SHAYLA Administration - Patient Studies Lab Studies: Microbiology Studies 03/21/18 05:30 Blood Culture - Final Blood NO GROWTH AFTER 5 DAYS Gram Stain - Final TEST NOT PERFORMED 03/20/18 21:03 Blood Culture - Final Blood NO GROWTH AFTER 5 DAYS Gram Stain - Final TEST NOT PERFORMED Lab Studies 03/26/18 03/25/18 03/25/18 Range/Units 07:24 20:56 16:18 WBC (4.8-10.8) K/uL RBC (3.80-5.20) Mil/uL Hgb (11.0-16.0) g/dL Hct (34.0-47.0) % MCV (81.0-99.0) fL MCH (27.0-31.0) pg MCHC (33.0-37.0) g/dL RDW (11.5-14.5) % Plt Count (130-400) K/uL MPV (7.2-11.7) fL Neut % (Auto) (50.0-75.0) % Lymph % (Auto) (20.0-40.0) % [place] % (Auto) (0.0-10.0) % Eos % (Auto) (0.0-4.0) % Baso % (Auto) (0.0-2.0) % Neut # (Auto) (1.8-7.0) K/uL Lymph # (Auto) (1.0-4.3) K/uL [place] # (Auto) (0.0-0.8) K/uL Eos # (Auto) (0.0-0.7) K/uL Baso # (Auto) (0.0-0.2) K/uL POC Glucose (mg/dL) 225 H 220 H 401 H* (65-110) mg/dL 03/25/18 03/25/18 03/25/18 Range/Units 11:13 10:57 07:26 WBC 10.9 H D (4.8-10.8) K/uL RBC 4.62 (3.80-5.20) Mil/uL Hgb 12.1 D (11.0-16.0) g/dL Hct 37.2 (34.0-47.0) % MCV 80.5 L (81.0-99.0) fL MCH 26.1 L (27.0-31.0) pg MCHC 32.4 L (33.0-37.0) g/dL RDW 14.8 H (11.5-14.5) % Plt Count 140 (130-400) K/uL MPV 8.1 (7.2-11.7) fL Neut % (Auto) 77.9 H (50.0-75.0) % Lymph % (Auto) 16.1 L (20.0-40.0) % [place] % (Auto) 5.4 (0.0-10.0) % Eos % (Auto) 0.3 (0.0-4.0) % Baso % (Auto) 0.3 (0.0-2.0) % Neut # (Auto) 8.5 H (1.8-7.0) K/uL Lymph # (Auto) 1.8 (1.0-4.3) K/uL [place] # (Auto) 0.6 (0.0-0.8) K/uL Eos # (Auto) 0.0 (0.0-0.7) K/uL Baso # (Auto) 0.0 (0.0-0.2) K/uL POC Glucose (mg/dL) 241 H 261 H (65-110) mg/dL 03/25/18 Range/Units 06:05 WBC 6.8 (4.8-10.8) K/uL RBC (3.80-5.20) Mil/uL Hgb 8.5 L D (11.0-16.0) g/dL Hct (34.0-47.0) % MCV (81.0-99.0) fL MCH (27.0-31.0) pg MCHC (33.0-37.0) g/dL RDW (11.5-14.5) % Plt Count 43 L D (130-400) K/uL MPV (7.2-11.7) fL Neut % (Auto) (50.0-75.0) % Lymph % (Auto) (20.0-40.0) % [place] % (Auto) (0.0-10.0) % Eos % (Auto) (0.0-4.0) % Baso % (Auto) (0.0-2.0) % Neut # (Auto) (1.8-7.0) K/uL Lymph # (Auto) (1.0-4.3) K/uL [place] # (Auto) (0.0-0.8) K/uL Eos # (Auto) (0.0-0.7) K/uL Baso # (Auto) 0.0 (0.0-0.2) K/uL POC Glucose (mg/dL) (65-110) mg/dL Laboratory Results - last 24 hr 03/25/18 03/25/18 03/25/18 06:05 07:26 10:57 WBC 6.8 10.9 H D RBC 4.62 Hgb 8.5 L D 12.1 D Hct 37.2 MCV 80.5 L MCH 26.1 L MCHC 32.4 L RDW 14.8 H Plt Count 43 L D 140 MPV 8.1 Neut % (Auto) 77.9 H Lymph % (Auto) 16.1 L [place] % (Auto) 5.4 Eos % (Auto) 0.3 Baso % (Auto) 0.3 Neut # (Auto) 8.5 H Lymph # (Auto) 1.8 [place] # (Auto) 0.6 Eos # (Auto) 0.0 Baso # (Auto) 0.0 0.0 POC Glucose (mg/dL) 261 H 03/25/18 03/25/18 03/25/18 11:13 16:18 20:56 WBC RBC Hgb Hct MCV MCH MCHC RDW Plt Count MPV Neut % (Auto) Lymph % (Auto) [place] % (Auto) Eos % (Auto) Baso % (Auto) Neut # (Auto) Lymph # (Auto) [place] # (Auto) Eos # (Auto) Baso # (Auto) POC Glucose (mg/dL) 241 H 401 H* 220 H 03/26/18 07:24 WBC RBC Hgb Hct MCV MCH MCHC RDW Plt Count MPV Neut % (Auto) Lymph % (Auto) [place] % (Auto) Eos % (Auto) Baso % (Auto) Neut # (Auto) Lymph # (Auto) [place] # (Auto) Eos # (Auto) Baso # (Auto) POC Glucose (mg/dL) 225 H Critical Care Progress Note - Nutrition Nutrition: Nutrition Category Date Time Status Consistent Carbohydrate [DIET] Diets 03/22/18 Breakfast Active Attending/Attestation - Attestation I have personally seen and examined this patient.: Yes I have fully participated in the care of the patient.: Yes I have reviewed all pertinent clinical information: Yes Notes (Text): Today: , March 21, 2018 The patient was Seen/interviewed and examined by me at the bedside during ICU round, Medical records reviewed and Management issues were discussed and formulated with the house staff. Events reviewed I have reviewed all the relevant clinical, laboratory, hemodynamic, radiographic data and medications Pain issues, skin care, head of the bed elevation, glycemic control were addressed. I concur with resident's assessment and plan of care as transcribed in Dr. Healy note.
--- NOTE | 2018-03-21 14:05 | CP.PCM.CON ---
History of Present Illness - History of Present Illness History of Present Illness: INFECTIOUS DISEASE CONSULT; HPI; 62 y/o female,w/PMhx of COPD and multiple intubations and s/p tracheostomy, brought to ER by ambulance for shortness of breath and productive cough with green phlegm. According to family, patient was admitted for COPD exacerbation in the beginning of February 2018 and she was discharged on with prescriptions for Prednisone and Albuterol. Family reports that her suction machine is not f unctioning and she has thick phlegm which is not able to be cleared. So patient is brought to ED by EMS in respiratory distress.Patient well known to me from previous admissions and has history off recurrent lower respiratory tract infections with multidrug resistance organisms. Patient well known to me, was admitted in November, and had bronchoscopy done. Bronchial washings were positive for Proteus mirabilis sensitive to Merrem and resistant to quinolones. Patient had tolerated IV Merrem in the past without any reaction. Infectious disease consultation requested by PMD for pneumonia and exascerbation of COPD. PT PRESENTLY ON IV AZACTAM . I DOSE IV VANCOMYCIN GIVEN REPORTED. PMH: Anxiety, Asthma, Bipolar Disorder, Bronchitis, CHF, COPD, Depression, Emphysema, Gall Bladder Disease, HTN, Pneumonia, Seizures, Sleep Apnea Surgical History: Appendectomy, Cholecystectomy Family History: States: Unknown Family Hx - Social History Hx Tobacco Use: No Hx Alcohol Use: No Hx Substance Use: No - Immunization History Hx Tetanus Toxoid Vaccination: No Hx Influenza Vaccination: No Hx Pneumococcal Vaccination: No ALLERGY; ASPIRIN, CEFTRIAXONE, BUT HAS TOLERATED MERREM IN THE PAST. IODINE, IBUPROFEN AND FAZAL. Review of Systems - Review of Systems Systems not reviewed;Unavailable: Other (+VE TRACH) All systems: reviewed and no additional remarkable complaints except (as per HPI.) Past Patient History - Infectious Disease Hx of Infectious Diseases: None - Tetanus Immunizations Tetanus Immunization: Unknown - Past Medical History & Family History Past Medical History?: Yes - Past Social History Smoking Status: Unknown If Ever Smoked - CARDIAC Hx Congestive Heart Failure: Yes Hx Hypercholesterolemia: No Hx Hypertension: Yes - PULMONARY Hx Asthma: Yes Hx Bronchitis: Yes Hx Chronic Obstructive Pulmonary Disease (COPD): Yes Hx Emphysema: Yes Hx Pneumonia: Yes Hx Sleep Apnea: Yes - NEUROLOGICAL Hx Seizures: Yes - HEENT Hx HEENT Problems: Yes Hx Cataracts: Yes - RENAL Hx Chronic Kidney Disease: No - ENDOCRINE/METABOLIC Hx Hypothyroidism: No - HEMATOLOGICAL/ONCOLOGICAL Hx Human Immunodeficiency Virus (HIV): No - INTEGUMENTARY Hx Dermatological Problems: No - MUSCULOSKELETAL/RHEUMATOLOGICAL Hx Arthritis: No Hx Rheumatoid Arthritis: No - GASTROINTESTINAL Hx Gall Bladder Disease: Yes - GENITOURINARY/GYNECOLOGICAL Hx Sexually Transmitted Disorders: No - PSYCHIATRIC Hx Anxiety: Yes Hx Bipolar Disorder: Yes Hx Depression: Yes Hx Substance Use: No - SURGICAL HISTORY Hx Appendectomy: Yes Hx Cholecystectomy: Yes - ANESTHESIA Hx Anesthesia: Yes Hx Anesthesia Reactions: No Hx Malignant Hyperthermia: No Meds Allergies/Adverse Reactions: Allergies Allergy/AdvReac Type Severity Reaction Status Date / Time aspirin Allergy ANAPHYLAXIS Verified 03/01/18 16:56 ceftriaxone sodium Allergy ANAPHYLAXIS Verified 03/01/18 16:56 [From Rocephin] ibuprofen [From Motrin] Allergy ANAPHYLAXIS Verified 03/01/18 16:56 iodine Allergy ANAPHYLAXIS Verified 03/01/18 16:56 raspberry Allergy ANAPHYLAXIS Verified 03/01/18 16:56 - Medications Medications: Current Medications Acetaminophen (Tylenol 325mg Tab) 650 mg PO Q6 PRN PRN Reason: Fever >100.4 F Acetaminophen (Tylenol 325mg Tab) 650 mg PO Q6H PRN PRN Reason: Pain, Mild (1-3) Albuterol/Ipratropium (Duoneb 3 Mg/0.5 Mg (3 Ml) Ud) 3 ml INH RQ6 [facility] Last Admin: 03/21/18 13:20 Dose: 3 ml Gabapentin (Neurontin) 800 mg PO TID [facility] Last Admin: 03/21/18 09:19 Dose: 800 mg Guaifenesin (Mucinex La) 600 mg PO TID [facility] Last Admin: 03/21/18 09:20 Dose: 600 mg Heparin Sodium (Porcine) (Heparin) 5,000 units SC Q12H [facility] Last Admin: 03/21/18 06:05 Dose: 5,000 units Aztreonam 2 gm/ Sodium (Chloride) 100 mls @ 100 mls/hr IVPB Q12H [facility]; Protocol Last Admin: 03/21/18 09:00 Dose: 100 mls/hr Insulin Glargine (Lantus) 17 unit SC HS [facility] Insulin Human Regular (Novolin R) 0 unit SC ACHS [facility]; Protocol Last Admin: 03/21/18 08:30 Dose: 4 u Lorazepam (Ativan) 1 mg IVP Q4H PRN PRN Reason: Anxiety Last Admin: 03/21/18 10:10 Dose: 1 mg Lorazepam (Ativan) 2 mg PO Q12H PRN PRN Reason: Anxiety Methylprednisolone (Solu-Medrol) 40 mg IVP Q6H [facility] Last Admin: 03/21/18 06:06 Dose: 40 mg Montelukast Sodium (Singulair) 10 mg PO HS [facility] Oxycodone/Acetaminophen (Percocet 5/325 Mg Tab) 1 tab PO Q4H PRN PRN Reason: Pain, severe (8-10) Stop: 03/23/18 22:51 Pantoprazole Sodium (Protonix Inj) 40 mg IVP DAILY [facility] Last Admin: 03/21/18 09:20 Dose: 40 mg Quetiapine Fumarate (Seroquel Xr) 400 mg PO Q12 [facility] Last Admin: 03/21/18 09:20 Dose: 400 mg Sertraline HCl (Zoloft) 100 mg PO BID [facility] Last Admin: 03/21/18 09:19 Dose: 100 mg Trazodone HCl (Desyrel) 150 mg PO [facility] Physical Exam - Constitutional Appears: In Acute Distress - Head Exam Head Exam: NORMAL INSPECTION - Eye Exam Eye Exam: EOMI, PERRL - ENT Exam ENT Exam: Normal Oropharynx Additional comments: +VE TRACH . THICK SECRETIONS. - Neck Exam Neck exam: Positive for: Normal Inspection - Respiratory Exam Respiratory Exam: Accessory Muscle Use, Prolonged Expiratory Phase, Rhonchi, Wheezes, Stridor - Cardiovascular Exam Cardiovascular Exam: Tachycardia, REGULAR RHYTHM, +S1, +S2 - GI/Abdominal Exam GI & Abdominal Exam: Normal Bowel Sounds, Soft. absent: Organomegaly - Extremities Exam Extremities exam: Positive for: pedal edema, pedal pulses present. Negative for: calf tenderness - Neurological Exam Neurological exam: Alert, CN II-XII Intact, Oriented x3 - Psychiatric Exam Psychiatric exam: Normal Mood - Skin Skin Exam: Normal Color, Warm Results - Vital Signs Recent Vital Signs: Last Vital Signs Temp 97.6 F 03/21/18 12:00 Pulse 84 03/21/18 12:06 Resp 29 H 03/21/18 12:06 BP 115/68 03/21/18 12:06 Pulse Ox 93 L 03/21/18 12:06 - Labs Result Diagrams: 03/21/18 05:42 03/21/18 05:42 Labs: Laboratory Results - last 24 hr 03/20/18 03/20/18 03/20/18 16:14 16:14 21:03 WBC 21.4 H D RBC 5.20 Hgb 12.9 Hct 41.2 MCV 79.3 L MCH 24.8 L MCHC 31.3 L RDW 15.2 H Plt Count 194 MPV 8.0 Neut % (Auto) 74.6 Lymph % (Auto) 18.4 L Cross % (Auto) 5.9 Eos % (Auto) 0.8 Baso % (Auto) 0.3 Neut # (Auto) 16.0 H Lymph # (Auto) 3.9 Cross # (Auto) 1.3 H Eos # (Auto) 0.2 Baso # (Auto) 0.1 Neutrophils % (Manual) Lymphocytes % (Manual) Monocytes % (Manual) Differential Comment Platelet Estimate RBC Morphology Sodium 143 Potassium 4.3 Chloride 106 Carbon Dioxide 27 Anion Gap 15 BUN 18 H Creatinine 0.9 Est GFR ( Amer) > 60 Est GFR (Non-Af Amer) > 60 POC Glucose (mg/dL) Random Glucose 197 H Calcium 10.0 Phosphorus Magnesium Total Bilirubin 0.5 AST 23 ALT 9 D Alkaline Phosphatase 141 H Total Protein 9.2 H Albumin 4.7 Globulin 4.5 H Albumin/Globulin Ratio 1.0 Influenza Typ A,B (EIA) Ur L.pneumophila Ag Negative Mycoplasma pneumon IgM 03/20/18 03/20/18 03/20/18 21:03 21:03 21:34 WBC RBC Hgb Hct MCV MCH MCHC RDW Plt Count MPV Neut % (Auto) Lymph % (Auto) Cross % (Auto) Eos % (Auto) Baso % (Auto) Neut # (Auto) Lymph # (Auto) Cross # (Auto) Eos # (Auto) Baso # (Auto) Neutrophils % (Manual) Lymphocytes % (Manual) Monocytes % (Manual) Differential Comment Platelet Estimate RBC Morphology Sodium Potassium Chloride Carbon Dioxide Anion Gap BUN Creatinine Est GFR ( Amer) Est GFR (Non-Af Amer) POC Glucose (mg/dL) 222 H Random Glucose Calcium Phosphorus Magnesium Total Bilirubin AST ALT Alkaline Phosphatase Total Protein Albumin Globulin Albumin/Globulin Ratio Influenza Typ A,B (EIA) Negative for flu a/b Ur L.pneumophila Ag Mycoplasma pneumon IgM Negative 03/21/18 03/21/18 03/21/18 05:42 05:42 07:29 WBC 14.5 H RBC 4.62 Hgb 11.7 Hct 37.4 MCV 80.8 L MCH 25.2 L MCHC 31.2 L RDW 14.8 H Plt Count 178 MPV 8.1 Neut % (Auto) 86.9 H Lymph % (Auto) 9.3 L Cross % (Auto) 3.5 Eos % (Auto) 0.0 Baso % (Auto) 0.3 Neut # (Auto) 12.6 H Lymph # (Auto) 1.3 Cross # (Auto) 0.5 Eos # (Auto) 0.0 Baso # (Auto) 0.0 Neutrophils % (Manual) 92 H Lymphocytes % (Manual) 6 L Monocytes % (Manual) 2 Differential Comment Platelet Estimate Normal RBC Morphology Normal Sodium 138 Potassium 4.7 Chloride 105 Carbon Dioxide 24 Anion Gap 13 BUN 19 H Creatinine 0.7 Est GFR ( Amer) > 60 Est GFR (Non-Af Amer) > 60 POC Glucose (mg/dL) 296 H Random Glucose 295 H D Calcium 9.1 Phosphorus 4.4 Magnesium 1.8 Total Bilirubin 0.5 AST 20 ALT < 6 L D Alkaline Phosphatase 112 Total Protein 8.2 Albumin 4.0 Globulin 4.2 H Albumin/Globulin Ratio 0.9 L Influenza Typ A,B (EIA) Ur L.pneumophila Ag Mycoplasma pneumon IgM 03/21/18 11:35 WBC RBC Hgb Hct MCV MCH MCHC RDW Plt Count MPV Neut % (Auto) Lymph % (Auto) Cross % (Auto) Eos % (Auto) Baso % (Auto) Neut # (Auto) Lymph # (Auto) Cross # (Auto) Eos # (Auto) Baso # (Auto) Neutrophils % (Manual) Lymphocytes % (Manual) Monocytes % (Manual) Differential Comment Platelet Estimate RBC Morphology Sodium Potassium Chloride Carbon Dioxide Anion Gap BUN Creatinine Est GFR ( Amer) Est GFR (Non-Af Amer) POC Glucose (mg/dL) 344 H Random Glucose Calcium Phosphorus Magnesium Total Bilirubin AST ALT Alkaline Phosphatase Total Protein Albumin Globulin Albumin/Globulin Ratio Influenza Typ A,B (EIA) Ur L.pneumophila Ag Mycoplasma pneumon IgM - Imaging and Cardiology Chest x-ray Status: Report reviewed by me (SEE REPORT-[facility]FIL[facility]) Assessment & Plan (1) Pneumonia Status: Acute (2) Respiratory distress Status: Acute (3) COPD exacerbation Status: Acute (4) Morbid obesity Status: Chronic (5) Diabetes mellitus Status: Chronic - Assessment and Plan (Free Text) Plan: PLAN ; PANCULTURES SPUTUM gRAM STAIN AND CULTURE UA/uRINE CULTURES ATYPICAL TITERS. CONTINUE iv aZACTAM 2 G iv PIGGYBACK EVERY 12 HOURLY FOR NOW 03/21/18 pATIENT GOT ONE DOSE OF VANCOMYCIN 1 G ON ADMISSION 03/20/18 fOLLOW-UP CULTURES TO ADJUST ANTIBIOTICS. PULMONARY TOILET IV STEROIDS PER TIP PRINTER/PMD. CASE DISCUSSED WITH THE STAFF.
[2018-03-21] MEDS: (Lantus) Insulin Glargine, Recombinant SC SCH (21:55)
--- NOTE | 2018-03-21 23:34 | CP.PCM.PN ---
Subjective - Date & Time of Evaluation Date of Evaluation: 03/21/18 Time of Evaluation: 08:40 - Subjective Subjective: dictated Objective - Vital Signs/Intake and Output Vital Signs (last 24 hours): Temp Pulse Resp BP Pulse Ox 98.3 F 80 23 130/77 91 L 03/21/18 20:00 03/21/18 22:06 03/21/18 22:06 03/21/18 22:06 03/21/18 22:06 Intake and Output: 03/21/18 03/22/18 18:59 06:59 Intake Total 120 200 Output Total 700 0 Balance -580 200 - Medications Medications: Current Medications Acetaminophen (Tylenol 325mg Tab) 650 mg PO Q6 PRN PRN Reason: Fever >100.4 F Acetaminophen (Tylenol 325mg Tab) 650 mg PO Q6H PRN PRN Reason: Pain, Mild (1-3) Albuterol/Ipratropium (Duoneb 3 Mg/0.5 Mg (3 Ml) Ud) 3 ml INH RQ6 [facility] Last Admin: 03/21/18 20:26 Dose: 3 ml Gabapentin (Neurontin) 800 mg PO TID [facility] Last Admin: 03/21/18 17:26 Dose: 800 mg Guaifenesin (Mucinex La) 600 mg PO TID [facility] Last Admin: 03/21/18 17:25 Dose: 600 mg Heparin Sodium (Porcine) (Heparin) 5,000 units SC Q12H [facility] Last Admin: 03/21/18 17:29 Dose: 5,000 units Aztreonam 2 gm/ Sodium (Chloride) 100 mls @ 100 mls/hr IVPB Q12H [facility]; Protocol Last Admin: 03/21/18 19:50 Dose: 100 mls/hr Insulin Glargine (Lantus) 17 unit SC HS [facility] Last Admin: 03/21/18 21:55 Dose: Not Given Insulin Human Regular (Novolin R) 0 unit SC ACHS [facility]; Protocol Last Admin: 03/21/18 21:55 Dose: Not Given Lorazepam (Ativan) 1 mg IVP Q4H PRN PRN Reason: Anxiety Last Admin: 03/21/18 10:10 Dose: 1 mg Lorazepam (Ativan) 2 mg PO Q12H PRN PRN Reason: Anxiety Methylprednisolone (Solu-Medrol) 40 mg IVP Q6H [facility] Last Admin: 03/21/18 17:29 Dose: 40 mg Montelukast Sodium (Singulair) 10 mg PO HS [facility] Last Admin: 03/21/18 22:00 Dose: 10 mg Oxycodone/Acetaminophen (Percocet 5/325 Mg Tab) 1 tab PO Q4H PRN PRN Reason: Pain, severe (8-10) Stop: 03/23/18 22:51 Pantoprazole Sodium (Protonix Inj) 40 mg IVP DAILY [facility] Last Admin: 03/21/18 09:20 Dose: 40 mg Quetiapine Fumarate (Seroquel Xr) 400 mg PO Q12 [facility] Last Admin: 03/21/18 22:00 Dose: 400 mg Sertraline HCl (Zoloft) 100 mg PO BID [facility] Last Admin: 03/21/18 17:26 Dose: 100 mg Trazodone HCl (Desyrel) 150 mg PO HS [facility] Last Admin: 03/21/18 22:00 Dose: 150 mg - Labs Labs: 03/21/18 05:42 03/21/18 05:42
[2018-03-22] MEDS: MethylPREDNISolone 40 mg Vial IVP SCH ×4 (00:21→17:40)
[2018-03-22] MEDS: Albuterol-Ipratrop 3 mg / 0.5 (3 ml) UD INH SCH ×4 (02:00→19:42)
--- NOTE | 2018-03-22 04:34 | PN ---
DATE: 03/21/2018 SUBJECTIVE: The patient is still coughing, congested; however, secretions are decreasing and their thickness is less. The patient is afebrile, on antibiotics. Seen by Infectious Disease and Pulmonary. PHYSICAL EXAMINATION: VITAL SIGNS: Blood pressure 130/77, pulse 80, respiratory rate 20, temperature 98. LUNGS: Scattered rhonchi. Decreased air entry. CVS: S1, S2. Regular. ABDOMEN: Soft, nontender. Bowel sounds are positive. ASSESSMENT: 1. Tracheobronchitis, rule out pneumonia in a patient with a history of tracheostomy, most likely due to multi-drug resistant germs because of exposure to the air. 2. Bronchial asthma exacerbation. 3. Poorly controlled diabetes. 4. Hypertension. PLAN: Antibiotics. Infectious Disease. WBC is already coming down to 40. We will monitor the patient. Ad Khan MD
[2018-03-22] MEDS: Oxycodone/Acetaminophen 5/325 mg Tab PO PRN ×4 (05:38→22:20)
[2018-03-22 06:03] LABS: BASO % 0.1 % (0.0-2.0); HEMOGLOBIN 11.9 g/dL (11.0-16.0); LYMPH # 0.9 K/uL (1.0-4.3); MEAN CELL VOLUME 80.8 fL (81.0-99.0); MEAN CORPUSCULAR HGB CONC 32.1 g/dL (33.0-37.0); MEAN PLATELET VOLUME 8.2 fL (7.2-11.7); MONO # 0.2 K/uL (0.0-0.8); MONO % 1.3 % (0.0-10.0); NEUT # 11.8 K/uL (1.8-7.0); NEUT % 91.6 % (50.0-75.0); PLATELET COUNT 166 K/uL (130-400); RBC 4.59 Mil/uL (3.80-5.20); WHITE BLOOD COUNT 12.9 K/uL (4.8-10.8)
[2018-03-22 06:20] LABS: ALBUMIN 4.2 g/dL (3.5-5.0); ALT/SGPT 6 U/L (9-52); AST/SGOT 16 U/L (14-36); BLOOD UREA NITROGEN 27 mg/dL (7-17); CALCIUM 9.3 mg/dl (8.6-10.4); GFR NON-AFRICAN AMERICAN > 60
[2018-03-22] MEDS: (Novolin R) Insulin Human Regular 100 units/ml vial SC SCH ×4 (08:30→21:45)
[2018-03-22] MEDS: Aztreonam 2 GM in Sodium Chloride 0.9% 100 ML IVPB SCH ×2 (09:00→20:25)
[2018-03-22 09:25] LABS: LYMPHOCYTE 5 % (20-40); MONOCYTE 1 % (0-10); NEUTROPHIL 94 % (50-75); TOTAL CELLS COUNTED 100
[2018-03-22 09:26] LABS: PLATELET ESTIMATE NORMAL (NORMAL)
[2018-03-22 09:28] LABS: ANISOCYTOSIS SLIGHT; HYPOCHROMIC SLIGHT; POLYCHROMIC SLIGHT
[2018-03-22] MEDS: QUEtiapine 200 mg XR Tab PO SCH ×2 (09:39→22:20)
[2018-03-22] MEDS: guaiFENesin 600 mg ER Tab PO SCH ×3 (09:39→17:05)
[2018-03-22] MEDS: Mupirocin 2% Ointment (NASAL) NAS SCH ×2 (09:40→18:43)
--- NOTE | 2018-03-22 09:49 | HP ---
CHIEF COMPLAINT: Shortness of breath x2 days. HISTORY OF PRESENT ILLNESS: This is a 62-year-old female, well known to me with history of morbid obesity. She has tracheostomy for longtime, hypertension, type 2 diabetes, major depressive disorder, chronic back problems with chronic back pain, anxiety and depression who is compliant with her diet, medication, and followup. She has history of multiple hospitalizations at [facility] because of pneumonia, respiratory tract infection, tracheostomy related complications. In her review of status, her blood pressure is on hold, at home oxygen nebulizer, and she has tracheostomy collar. She is compliant with her diet, medication, and followup. The patient was recently discharged. She developed increasing cough, congestion, shortness of breath, wheezing, thick green sputum production, chill, rigors, tiredness, inability to bring up sputum, chest pain upon coughing, chest pain upon deep inspiration, upper abdominal pain upon deep inspiration, generalized aches and pains, tiredness, anorexia, malaise, and fatigue. The patient denied any history of polyuria, polydipsia, polyphagia. She denies any history of hematuria or pyuria. She had nasal congestion. She has thick yellow sputum production. She has back pain, hip pain. She has tingling and numbness in the feet. She denied any history of trauma, fall, loss of consciousness. She denies any history of seizure like activity. The patient had back pain. She denies any knee pain, hip pain, shoulder pain. She has headaches. No dizziness, no vertigo. She denies any involuntary movements on the leg. No history of trauma or fall. PAST MEDICAL HISTORY: Bronchial asthma, morbid obesity, tracheostomy, diabetes, hypertension, major depressive psychosis. SOCIAL HISTORY: Nonsmoker, non-ETOH user. CURRENT MEDICATIONS: At home, she is on Ativan, trazodone, DuoNeb, Lantus, guaifenesin, Percocet, Protonix, Seroquel, Singulair, Tylenol, and Zoloft. PHYSICAL EXAMINATION: GENERAL: An elderly female. She is in distress. She is coughing, wheezing, unable to bring out sputum. VITAL SIGNS: Blood pressure 131/74, pulse 94, respiratory rate 27, temperature 98. SKIN: No rashes. No bruises. No purpura. No petechiae. HEENT EXAM: Atraumatic and normocephalic. Negative pallor. Negative jaundice. Extraocular movements are intact. NECK: Supple. No JVD. No lymph nodes. She has tracheostomy with thick green sputum, and she is unable to bring up sputum. CHEST WALL: Bilaterally symmetrical expansion. No tenderness. No deformity. BREAST: No masses. No discharge. LUNGS: Bilateral inspiratory/expiratory rhonchi. Decreased air entry. CARDIOVASCULAR SYSTEM: PMI not localized. S1 and S2 regular. No heave. No thrill. ABDOMEN: Soft and nontender. Bowel sounds are positive. RECTAL AND PELVIS: Deferred as she is in distress. EXTREMITIES: No clubbing, cyanosis, or edema. CENTRAL NERVOUS SYSTEM: Awake, alert, and oriented x3. Cranial nerves II through XII are normal. Power is 5/5 x4. Plantars are downgoing. ASSESSMENT: 1. Tracheobronchitis, rule out pneumonia multidrug resistant, multiple germs because of the patient's underlying tracheostomy. 2. Poorly-controlled diabetes. 3. Hypertension. 4. Lumbar disk disease. 5. Bronchial asthma. PLAN: Admit. Detailed orders are written. Sputum production. Azactam, vancomycin. Monitor patient. Ad Khan MD
[2018-03-22] MEDS: (Lantus) Insulin Glargine, Recombinant SC SCH (21:45)
--- NOTE | 2018-03-22 23:57 | CP.PCM.PN ---
Subjective - Date & Time of Evaluation Date of Evaluation: 03/22/18 Time of Evaluation: 23:57 - Subjective Subjective: CHIEF COMPLAINTS TODAY : afebrile, THICK GREENISH SECRETIONS ON VENT VIA +ve trach collar ROS. HEENT : N. Resp : +VE cough, +VE wheezing , DENIES pleuritic CP ,or hemoptysis Cardio : No anginal CP, PND, orthopnea, palpitation GI : No abd.pain, n/v ,diarrhea or GI bleeding . CARDIOVASCULAR TECHNOLOGIST : No headache, vertigo, focal deficit. Musculoskel : No joint swelling , Derm : No rash Psych : Normal affect. Ext : No swelling ,calf pain PE. Pt. is alert awake in no distress. +VE TRACH COLLAR V.S As noted in the chart Head ,ear nose,throat and eyes : Normal. Neck : Supple with normal carotids. Lungs: LESS WHEEZE Heart : S1 & S2 REGULAR. Abd : Soft non tender with normal bowel sounds. Neuro : Moves all ext. with no localized deficit. Ext : No edema with intact pulses.Non tender calves Derm : No rashes or decubitus ulcer. LABS/RADIOLOGY: SPUTUM +VE GNR MRSA -DETECTED BLOOD CULTURES -VE TO DATE Objective - Vital Signs/Intake and Output Vital Signs (last 24 hours): Temp Pulse Resp BP Pulse Ox 98.0 F 80 15 148/68 99 03/22/18 16:00 03/22/18 23:00 03/22/18 23:00 03/22/18 21:56 03/22/18 23:00 Intake and Output: 03/22/18 03/23/18 18:59 06:59 Intake Total 700 Output Total 850 Balance -150 - Medications Medications: Current Medications Acetaminophen (Tylenol 325mg Tab) 650 mg PO Q6 PRN PRN Reason: Fever >100.4 F Acetaminophen (Tylenol 325mg Tab) 650 mg PO Q6H PRN PRN Reason: Pain, Mild (1-3) Albuterol/Ipratropium (Duoneb 3 Mg/0.5 Mg (3 Ml) Ud) 3 ml INH RQ6 [facility] Last Admin: 03/22/18 19:42 Dose: 3 ml Gabapentin (Neurontin) 800 mg PO TID [facility] Last Admin: 03/22/18 17:04 Dose: 800 mg Guaifenesin (Mucinex La) 600 mg PO TID [facility] Last Admin: 03/22/18 17:05 Dose: 600 mg Heparin Sodium (Porcine) (Heparin) 5,000 units SC Q12H [facility] Last Admin: 03/22/18 17:40 Dose: 5,000 units Aztreonam 2 gm/ Sodium (Chloride) 100 mls @ 100 mls/hr IVPB Q12H [facility]; Protocol Last Admin: 03/22/18 20:25 Dose: 100 mls/hr Insulin Glargine (Lantus) 17 unit SC [facility] Last Admin: 03/22/18 21:45 Dose: 17 units Insulin Human Regular (Novolin R) 0 unit SC [facility]; Protocol Last Admin: 03/22/18 21:45 Dose: 4 u Lorazepam (Ativan) 1 mg IVP Q4H PRN PRN Reason: Anxiety Last Admin: 03/22/18 20:26 Dose: 1 mg Lorazepam (Ativan) 2 mg PO Q12H PRN PRN Reason: Anxiety Methylprednisolone (Solu-Medrol) 40 mg IVP Q6H [facility] Last Admin: 03/22/18 17:40 Dose: 40 mg Montelukast Sodium (Singulair) 10 mg PO [facility] Last Admin: 03/22/18 22:27 Dose: 10 mg Mupirocin (Bactroban 2% Nasal) 0.25 gm LINA BID [facility] Last Admin: 03/22/18 18:43 Dose: Not Given Oxycodone/Acetaminophen (Percocet 5/325 Mg Tab) 1 tab PO Q4H PRN PRN Reason: Pain, severe (8-10) Stop: 03/23/18 22:51 Last Admin: 03/22/18 22:20 Dose: 1 tab Pantoprazole Sodium (Protonix Inj) 40 mg IVP DAILY [facility] Last Admin: 03/22/18 09:39 Dose: 40 mg Quetiapine Fumarate (Seroquel Xr) 400 mg PO Q12 [facility] Last Admin: 03/22/18 22:20 Dose: 400 mg Sertraline HCl (Zoloft) 100 mg PO BID [facility] Last Admin: 03/22/18 17:05 Dose: 100 mg Trazodone HCl (Desyrel) 150 mg PO [facility] Last Admin: 03/22/18 22:22 Dose: 150 mg - Labs Labs: 03/22/18 05:55 03/22/18 05:55 Assessment and Plan (1) Pneumonia Status: Acute (2) Respiratory distress Status: Acute (3) COPD exacerbation Status: Acute (4) Morbid obesity Status: Chronic (5) Diabetes mellitus Status: Chronic - Assessment and Plan (Free Text) Plan: PLAN CONTINUE iv AZACTAM 2 G iv PIGGYBACK EVERY 12 HOURLY FOR NOW 03/21/18 pATIENT GOT ONE DOSE OF VANCOMYCIN 1 G ON ADMISSION 03/20/18 fOLLOW-UP CULTURES TO ADJUST ANTIBIOTICS. MUPIRICON OINTMENT 5ML BID NARIS X 7 DAYS. CONTACT ISOLATION PULMONARY TOILET /DUONEB TREATMENTS.
[2018-03-23] MEDS: MethylPREDNISolone 40 mg Vial IVP SCH ×5 (00:22→21:29)
[2018-03-23] MEDS: Albuterol-Ipratrop 3 mg / 0.5 (3 ml) UD INH SCH ×4 (03:30→20:04)
[2018-03-23 06:18] LABS: BASO % 0.2 % (0.0-2.0); HEMOGLOBIN 11.3 g/dL (11.0-16.0); LYMPH # 0.7 K/uL (1.0-4.3); LYMPH % 5.9 % (20.0-40.0); MEAN CELL VOLUME 80.9 fL (81.0-99.0); MEAN CORPUSCULAR HEMOGLOBIN 25.4 pg (27.0-31.0); MEAN CORPUSCULAR HGB CONC 31.3 g/dL (33.0-37.0); MEAN PLATELET VOLUME 8.1 fL (7.2-11.7); MONO # 0.3 K/uL (0.0-0.8); MONO % 2.4 % (0.0-10.0); NEUT # 11.3 K/uL (1.8-7.0); NEUT % 91.5 % (50.0-75.0); PLATELET COUNT 173 K/uL (130-400); RBC 4.44 Mil/uL (3.80-5.20); RED CELL DISTRIBUTION WIDTH 14.9 % (11.5-14.5); WHITE BLOOD COUNT 12.3 K/uL (4.8-10.8)
[2018-03-23] MEDS: Oxycodone/Acetaminophen 5/325 mg Tab PO PRN ×3 (06:21→17:24)
[2018-03-23 06:37] LABS: ALB/GLOB RATIO 1.1 (1.0-2.1); ALBUMIN 3.8 g/dL (3.5-5.0); ALT/SGPT 12 U/L (9-52); AST/SGOT 11 U/L (14-36); BLOOD UREA NITROGEN 30 mg/dL (7-17); CALCIUM 8.6 mg/dl (8.6-10.4); GFR NON-AFRICAN AMERICAN 51
[2018-03-23 08:35] LABS: LYMPHOCYTE 5 % (20-40); MONOCYTE 3 % (0-10); NEUTROPHIL 92 % (50-75); PLATELET ESTIMATE NORMAL (NORMAL); TOTAL CELLS COUNTED 100
[2018-03-23 08:36] LABS: ANISOCYTOSIS SLIGHT; TOXIC GRANULATION PRESENT
[2018-03-23 08:37] LABS: HYPOCHROMIC SLIGHT; MICROCYTOSIS SLIGHT; POLYCHROMIC SLIGHT
[2018-03-23] MEDS: (Novolin R) Insulin Human Regular 100 units/ml vial SC SCH ×4 (09:17→21:45)
[2018-03-23] MEDS: Mupirocin 2% Ointment (NASAL) NAS SCH ×2 (09:19→17:17)
[2018-03-23] MEDS: QUEtiapine 200 mg XR Tab PO SCH ×2 (09:20→21:26)
[2018-03-23] MEDS: Aztreonam 2 GM in Sodium Chloride 0.9% 100 ML IVPB SCH ×2 (09:29→20:15)
[2018-03-23] MEDS: guaiFENesin 600 mg ER Tab PO SCH ×3 (09:36→17:17)
--- NOTE | 2018-03-23 19:13 | CP.PCM.PN ---
Subjective - Date & Time of Evaluation Date of Evaluation: 03/23/18 Time of Evaluation: 13:20 - Subjective Subjective: dictated Objective - Vital Signs/Intake and Output Vital Signs (last 24 hours): Temp Pulse Resp BP Pulse Ox 97.8 F 75 24 141/75 100 03/23/18 16:00 03/23/18 18:00 03/23/18 18:00 03/23/18 17:54 03/23/18 18:00 Intake and Output: 03/23/18 03/24/18 18:59 06:59 Intake Total 400 Output Total 800 Balance -400 - Medications Medications: Current Medications Acetaminophen (Tylenol 325mg Tab) 650 mg PO Q6 PRN PRN Reason: Fever >100.4 F Acetaminophen (Tylenol 325mg Tab) 650 mg PO Q6H PRN PRN Reason: Pain, Mild (1-3) Albuterol/Ipratropium (Duoneb 3 Mg/0.5 Mg (3 Ml) Ud) 3 ml INH RQ6 [facility] Last Admin: 03/23/18 14:09 Dose: 3 ml Gabapentin (Neurontin) 800 mg PO TID [facility] Last Admin: 03/23/18 13:18 Dose: 800 mg Guaifenesin (Mucinex La) 600 mg PO TID [facility] Last Admin: 03/23/18 17:17 Dose: 600 mg Aztreonam 2 gm/ Sodium (Chloride) 100 mls @ 100 mls/hr IVPB Q12H [facility]; Protocol Last Admin: 03/23/18 09:29 Dose: 100 mls/hr Insulin Glargine (Lantus) 17 unit SC HS [facility] Last Admin: 03/22/18 21:45 Dose: 17 units Insulin Human Regular (Novolin R) 0 unit SC ACHS [facility]; Protocol Last Admin: 03/23/18 16:12 Dose: 10 u Lorazepam (Ativan) 1 mg IVP Q4H PRN PRN Reason: Anxiety Last Admin: 03/22/18 20:26 Dose: 1 mg Lorazepam (Ativan) 2 mg PO Q12H PRN PRN Reason: Anxiety Last Admin: 03/23/18 16:22 Dose: 2 mg Methylprednisolone (Solu-Medrol) 40 mg IVP Q6H [facility] Last Admin: 03/23/18 17:30 Dose: 40 mg Montelukast Sodium (Singulair) 10 mg PO HS [facility] Last Admin: 03/22/18 22:27 Dose: 10 mg Mupirocin (Bactroban 2% Nasal) 0.25 gm LINA BID [facility] Last Admin: 03/23/18 17:17 Dose: 0.25 gm Oxycodone/Acetaminophen (Percocet 5/325 Mg Tab) 1 tab PO Q4H PRN PRN Reason: Pain, severe (8-10) Stop: 03/23/18 22:51 Last Admin: 03/23/18 17:24 Dose: 1 tab Pantoprazole Sodium (Protonix Inj) 40 mg IVP DAILY [facility] Last Admin: 03/23/18 09:19 Dose: 40 mg Quetiapine Fumarate (Seroquel Xr) 400 mg PO Q12 [facility] Last Admin: 03/23/18 09:20 Dose: 400 mg Sertraline HCl (Zoloft) 100 mg PO BID [facility] Last Admin: 03/23/18 17:33 Dose: 100 mg Trazodone HCl (Desyrel) 150 mg PO [facility] Last Admin: 03/22/18 22:22 Dose: 150 mg - Labs Labs: 03/23/18 06:07 03/23/18 06:07
[2018-03-23] MEDS: (Lantus) Insulin Glargine, Recombinant SC SCH (21:00)
--- NOTE | 2018-03-23 23:36 | PN ---
DATE: 03/23/2018 SUBJECTIVE: The patient is less short of breath, less cough, less wheezing. No fever. No chills. No nausea or vomiting. Tolerating p.o. PHYSICAL EXAMINATION: VITAL SIGNS: Blood pressure 148/68, pulse 83, respiratory rate 22, temperature 98. LUNGS: Bilateral expiratory and inspiratory rhonchi. Decreased air entry. CARDIOVASCULAR SYSTEM: S1 and S2, regular. ABDOMEN: Soft. Trach secretion . ASSESSMENT: 1. Tracheobronchitis, rule out pneumonia. 2. Exacerbation of bronchial asthma. 3. Diabetes with blood sugar exacerbated by steroids. 4. Hypertension. PLAN: Continue antibiotics. Await cultures. Ad Khan MD
--- NOTE | 2018-03-24 00:50 | PN ---
DATE: 03/23/2018 SUBJECTIVE: Sputum culture is positive for Proteus mirabilis, which is sensitive to three antibiotics. The patient per Infectious Disease is on Azactam, and the patient is being monitored. Patient's blood sugars have been high due to steroids. She denies any fevers or chills. No nausea or vomiting. She has some pain in the throat. PHYSICAL EXAMINATION: VITAL SIGNS: Blood pressure 140/76, pulse 72, respiratory rate 19, and temperature 99. LUNGS: Bilateral inspiratory and expiratory rhonchi. CVS: S1, S2. Regular. ABDOMEN: Soft. ASSESSMENT: 1. Pneumonia, bilateral infiltrates, on intravenous Azactam, maintained by Infectious Disease. 2. Hypertension. 3. Uncontrolled diabetes due to steroids. 4. Depression. PLAN: Continue current medication. Decrease steroid. Monitor the patient. Ad Khan MD
[2018-03-24] MEDS: Albuterol-Ipratrop 3 mg / 0.5 (3 ml) UD INH SCH ×4 (01:10→19:43)
[2018-03-24 06:14] LABS: BASO # 0.1 K/uL (0.0-0.2); BASO % 0.5 % (0.0-2.0); EOS % 0.2 % (0.0-4.0); HEMOGLOBIN 12.1 g/dL (11.0-16.0); LYMPH % 7.6 % (20.0-40.0); MEAN CELL VOLUME 80.5 fL (81.0-99.0); MEAN CORPUSCULAR HEMOGLOBIN 25.2 pg (27.0-31.0); MEAN CORPUSCULAR HGB CONC 31.4 g/dL (33.0-37.0); MONO # 0.5 K/uL (0.0-0.8); MONO % 3.8 % (0.0-10.0); NEUT # 11.3 K/uL (1.8-7.0); NEUT % 87.9 % (50.0-75.0); PLATELET COUNT 171 K/uL (130-400); RBC 4.79 Mil/uL (3.80-5.20); RED CELL DISTRIBUTION WIDTH 15.2 % (11.5-14.5); WHITE BLOOD COUNT 12.9 K/uL (4.8-10.8)
[2018-03-24 06:19] LABS: ALB/GLOB RATIO 1.1 (1.0-2.1); ALBUMIN 3.9 g/dL (3.5-5.0); ALT/SGPT 8 U/L (9-52); AST/SGOT 16 U/L (14-36); BLOOD UREA NITROGEN 26 mg/dL (7-17); CALCIUM 9.2 mg/dl (8.6-10.4); GFR NON-AFRICAN AMERICAN > 60
[2018-03-24] MEDS: Aztreonam 2 GM in Sodium Chloride 0.9% 100 ML IVPB SCH ×2 (08:21→20:43)
[2018-03-24] MEDS: (Novolin R) Insulin Human Regular 100 units/ml vial SC SCH ×4 (08:22→22:37)
[2018-03-24] MEDS: QUEtiapine 200 mg XR Tab PO SCH ×2 (09:46→22:36)
[2018-03-24] MEDS: MethylPREDNISolone 40 mg Vial IVP SCH ×2 (09:46→22:34)
[2018-03-24 09:48] LABS: BANDS 1 % (0-2); LYMPHOCYTE 6 % (20-40); MONOCYTE 3 % (0-10); NEUTROPHIL 90 % (50-75); PLATELET ESTIMATE NORMAL (NORMAL); TOTAL CELLS COUNTED 100
[2018-03-24 09:49] LABS: ANISOCYTOSIS SLIGHT; HYPOCHROMIC SLIGHT; POLYCHROMIC SLIGHT
[2018-03-24 09:50] LABS: OVALOCYTES SLIGHT; POIKILOCYTOSIS SLIGHT
[2018-03-24 09:51] LABS: LARGE PLATELETS PRESENT
[2018-03-24 09:52] LABS: TEARDROP CELLS SLIGHT
[2018-03-24] MEDS: Mupirocin 2% Ointment (NASAL) NAS SCH ×2 (09:53→17:09)
[2018-03-24] MEDS: guaiFENesin 600 mg ER Tab PO SCH ×3 (09:53→17:09)
[2018-03-24] MEDS ORDERED: HYDROmorphone 1 mg/ml ISec IVP ONE (20:15)
--- NOTE | 2018-03-24 21:05 | CP.PCM.PN ---
Subjective - Date & Time of Evaluation Date of Evaluation: 03/24/18 Time of Evaluation: 08:20 - Subjective Subjective: dictated Objective - Vital Signs/Intake and Output Vital Signs (last 24 hours): Temp Pulse Resp BP Pulse Ox 98.2 F 85 19 140/87 98 03/24/18 17:00 03/24/18 18:00 03/24/18 18:00 03/24/18 17:54 03/24/18 17:00 Intake and Output: 03/24/18 03/25/18 18:59 06:59 Intake Total 850 Output Total 1050 Balance -200 - Medications Medications: Current Medications Acetaminophen (Tylenol 325mg Tab) 650 mg PO Q6 PRN PRN Reason: Fever >100.4 F Last Admin: 03/24/18 11:42 Dose: 650 mg Acetaminophen (Tylenol 325mg Tab) 650 mg PO Q6H PRN PRN Reason: Pain, Mild (1-3) Albuterol/Ipratropium (Duoneb 3 Mg/0.5 Mg (3 Ml) Ud) 3 ml INH RQ6 [facility] Last Admin: 03/24/18 19:43 Dose: 3 ml Gabapentin (Neurontin) 800 mg PO TID [facility] Last Admin: 03/24/18 17:09 Dose: 800 mg Guaifenesin (Mucinex La) 600 mg PO TID [facility] Last Admin: 03/24/18 17:09 Dose: 600 mg Aztreonam 2 gm/ Sodium (Chloride) 100 mls @ 100 mls/hr IVPB Q12H [facility]; Protocol Last Admin: 03/24/18 20:43 Dose: 100 mls/hr Insulin Glargine (Lantus) 17 unit SC HS [facility] Last Admin: 03/23/18 21:00 Dose: 17 units Insulin Human Regular (Novolin R) 0 unit SC ACHS [facility]; Protocol Last Admin: 03/24/18 16:24 Dose: 8 u Lorazepam (Ativan) 1 mg IVP Q4H PRN PRN Reason: Anxiety Last Admin: 03/23/18 21:45 Dose: 1 mg Lorazepam (Ativan) 2 mg PO Q12H PRN PRN Reason: Anxiety Last Admin: 03/23/18 16:22 Dose: 2 mg Methylprednisolone (Solu-Medrol) 40 mg IVP Q12 [facility] Last Admin: 03/24/18 09:46 Dose: 40 mg Montelukast Sodium (Singulair) 10 mg PO HS [facility] Last Admin: 03/23/18 21:27 Dose: 10 mg Mupirocin (Bactroban 2% Nasal) 0.25 gm LINA BID [facility] Last Admin: 03/24/18 17:09 Dose: 0.25 gm Pantoprazole Sodium (Protonix Inj) 40 mg IVP DAILY [facility] Last Admin: 03/24/18 09:45 Dose: 40 mg Quetiapine Fumarate (Seroquel Xr) 400 mg PO Q12 [facility] Last Admin: 03/24/18 09:46 Dose: 400 mg Sertraline HCl (Zoloft) 100 mg PO BID [facility] Last Admin: 03/24/18 09:46 Dose: 100 mg Trazodone HCl (Desyrel) 150 mg PO [facility] Last Admin: 03/23/18 21:26 Dose: 150 mg - Labs Labs: 03/24/18 06:10 03/24/18 05:42
[2018-03-24] MEDS: (Lantus) Insulin Glargine, Recombinant SC SCH (22:39)
--- NOTE | 2018-03-25 01:07 | PN ---
DATE: 03/24/2018 SUBJECTIVE: The patient is still coughing, congested, short of breath, wheezing and she has throat pain. Overall she feels better. Her right resolved. She has no fever. Her sputum has grown Proteus mirabilis and she is on Azactam. No nausea or vomiting, on diet. PHYSICAL EXAMINATION: VITAL SIGNS: Blood pressure 140/80, pulse 88, respiratory rate 20, and temperature 98. LUNGS: Bilateral decreased air entry, inspiratory and expiratory rhonchi. CARDIOVASCULAR SYSTEM: S1, S2 regular. ABDOMEN: Soft, nontender. Bowel sounds are positive. ASSESSMENT: 1. Recurrent bilateral pneumonia with Proteus mirabilis, on Azactam. 2. Bronchial asthma, on tapered steroid. 3. Anxiety and depression. 4. Diabetes. PLAN: Antibiotics. Monitor the patient. Ad Khan MD
[2018-03-25] MEDS: Albuterol-Ipratrop 3 mg / 0.5 (3 ml) UD INH SCH ×4 (01:21→19:51)
[2018-03-25 06:10] LABS: BASO % 0.5 % (0.0-2.0); EOS % 0.1 % (0.0-4.0); LYMPH # 0.7 K/uL (1.0-4.3); LYMPH % 10.1 % (20.0-40.0); MEAN CELL VOLUME 80.7 fL (81.0-99.0); MEAN CORPUSCULAR HEMOGLOBIN 26.1 pg (27.0-31.0); MEAN CORPUSCULAR HGB CONC 32.3 g/dL (33.0-37.0); MONO # 0.3 K/uL (0.0-0.8); MONO % 4.6 % (0.0-10.0); NEUT # 5.8 K/uL (1.8-7.0); NEUT % 84.7 % (50.0-75.0); NRBC % 0.1 % (0.0-2.0); RBC 3.24 Mil/uL (3.80-5.20); RED CELL DISTRIBUTION WIDTH 14.8 % (11.5-14.5)
[2018-03-25 06:32] LABS: ALB/GLOB RATIO 1.1 (1.0-2.1); ALT/SGPT < 6 U/L (9-52); AST/SGOT 26 U/L (14-36); BLOOD UREA NITROGEN 28 mg/dL (7-17); CALCIUM 8.9 mg/dl (8.6-10.4); GFR NON-AFRICAN AMERICAN > 60
[2018-03-25] MEDS: (Novolin R) Insulin Human Regular 100 units/ml vial SC SCH ×4 (07:44→23:33)
[2018-03-25] MEDS: Aztreonam 2 GM in Sodium Chloride 0.9% 100 ML IVPB SCH (07:45)
[2018-03-25] MEDS: MethylPREDNISolone 40 mg Vial IVP SCH ×2 (09:34→22:08)
[2018-03-25] MEDS: QUEtiapine 200 mg XR Tab PO SCH ×2 (09:35→22:54)
[2018-03-25] MEDS: guaiFENesin 600 mg ER Tab PO SCH ×3 (09:36→17:21)
[2018-03-25] MEDS: Mupirocin 2% Ointment (NASAL) NAS SCH ×2 (09:54→17:21)
[2018-03-25 10:09] LABS: WHITE BLOOD COUNT 6.8 K/uL (4.8-10.8)
[2018-03-25 10:10] LABS: HEMOGLOBIN 8.5 g/dL (11.0-16.0)
[2018-03-25 11:02] LABS: BASO % 0.3 % (0.0-2.0); EOS % 0.3 % (0.0-4.0); LYMPH # 1.8 K/uL (1.0-4.3); LYMPH % 16.1 % (20.0-40.0); MEAN CELL VOLUME 80.5 fL (81.0-99.0); MEAN CORPUSCULAR HEMOGLOBIN 26.1 pg (27.0-31.0); MEAN CORPUSCULAR HGB CONC 32.4 g/dL (33.0-37.0); MEAN PLATELET VOLUME 8.1 fL (7.2-11.7); MONO # 0.6 K/uL (0.0-0.8); MONO % 5.4 % (0.0-10.0); NEUT # 8.5 K/uL (1.8-7.0); NEUT % 77.9 % (50.0-75.0); NRBC % 0.1 % (0.0-2.0); RBC 4.62 Mil/uL (3.80-5.20); RED CELL DISTRIBUTION WIDTH 14.8 % (11.5-14.5)
[2018-03-25 11:03] LABS: HEMOGLOBIN 12.1 g/dL (11.0-16.0); WHITE BLOOD COUNT 10.9 K/uL (4.8-10.8)
[2018-03-25] MEDS ORDERED: Magnesium Hydroxide Susp 30 ml UD PO PRN (11:30)
--- NOTE | 2018-03-25 11:35 | CP.PCM.PN ---
Subjective - Date & Time of Evaluation Date of Evaluation: 03/25/18 Time of Evaluation: 11:35 - Subjective Subjective: AFEBRILE, C/O PAIN THROAT. SECRETIONS STILL THICK. ON IV ABX. SPUTUM +VE PROTEUS MIRABLIS S- MERREM PT SWITCHED TO IV MERREM. DC IV AZACTAM. Objective - Vital Signs/Intake and Output Vital Signs (last 24 hours): Temp Pulse Resp BP Pulse Ox 98.3 F 74 22 145/79 99 03/25/18 08:00 03/25/18 11:00 03/25/18 11:00 03/25/18 09:54 03/25/18 11:00 Intake and Output: 03/25/18 03/25/18 06:59 18:59 Intake Total 480 Output Total 0 Balance 480 - Medications Medications: Current Medications Acetaminophen (Tylenol 325mg Tab) 650 mg PO Q6 PRN PRN Reason: Fever >100.4 F Last Admin: 03/24/18 11:42 Dose: 650 mg Acetaminophen (Tylenol 325mg Tab) 650 mg PO Q6H PRN PRN Reason: Pain, Mild (1-3) Albuterol/Ipratropium (Duoneb 3 Mg/0.5 Mg (3 Ml) Ud) 3 ml INH RQ6 [facility] Last Admin: 03/25/18 08:01 Dose: 3 ml Gabapentin (Neurontin) 800 mg PO TID [facility] Last Admin: 03/25/18 09:36 Dose: 800 mg Guaifenesin (Mucinex La) 600 mg PO TID [facility] Last Admin: 03/25/18 09:36 Dose: 600 mg Heparin Sodium (Porcine) (Heparin) 5,000 units SC Q12 [facility] Aztreonam 2 gm/ Sodium (Chloride) 100 mls @ 100 mls/hr IVPB Q12H [facility]; Protocol Last Admin: 03/25/18 07:45 Dose: 100 mls/hr Insulin Glargine (Lantus) 17 unit SC HS [facility] Last Admin: 03/24/18 22:39 Dose: 17 units Insulin Human Regular (Novolin R) 0 unit SC ACHS [facility]; Protocol Last Admin: 03/25/18 07:44 Dose: 4 units Lorazepam (Ativan) 1 mg IVP Q4H PRN PRN Reason: Anxiety Last Admin: 03/23/18 21:45 Dose: 1 mg Lorazepam (Ativan) 2 mg PO Q12H PRN PRN Reason: Anxiety Last Admin: 03/23/18 16:22 Dose: 2 mg Magnesium Hydroxide (Milk Of Magnesia) 30 ml PO DAILY PRN PRN Reason: Constipation Methylprednisolone (Solu-Medrol) 40 mg IVP Q12 [facility] Last Admin: 03/25/18 09:34 Dose: 40 mg Montelukast Sodium (Singulair) 10 mg PO [facility] Last Admin: 03/24/18 22:39 Dose: 10 mg Mupirocin (Bactroban 2% Nasal) 0.25 gm LINA BID [facility] Last Admin: 03/25/18 09:54 Dose: 0.25 gm Pantoprazole Sodium (Protonix Inj) 40 mg IVP DAILY [facility] Last Admin: 03/25/18 09:35 Dose: 40 mg Quetiapine Fumarate (Seroquel Xr) 400 mg PO Q12 [facility] Last Admin: 03/25/18 09:35 Dose: 400 mg Sertraline HCl (Zoloft) 100 mg PO BID [facility] Last Admin: 03/25/18 09:35 Dose: 100 mg Trazodone HCl (Desyrel) 150 mg PO [facility] Last Admin: 03/24/18 22:36 Dose: 150 mg - Labs Labs: 03/25/18 10:57 03/25/18 06:05 - Constitutional Appears: No Acute Distress - Head Exam Head Exam: NORMAL INSPECTION - Eye Exam Eye Exam: EOMI, PERRL - ENT Exam ENT Exam: Normal Oropharynx Additional comments: +VE TRACH - Neck Exam Neck Exam: Normal Inspection - Respiratory Exam Respiratory Exam: Rhonchi (B/L), NORMAL BREATHING PATTERN - Cardiovascular Exam Cardiovascular Exam: REGULAR RHYTHM, +S1, +S2 - GI/Abdominal Exam GI & Abdominal Exam: Soft, Normal Bowel Sounds - Extremities Exam Extremities Exam: Normal Capillary Refill. absent: Calf Tenderness, Pedal Edema - Neurological Exam Neurological Exam: Awake, CN II-XII Intact, Oriented x3 - Psychiatric Exam Psychiatric exam: Normal Mood - Skin Skin Exam: Normal Color Assessment and Plan (1) Pneumonia Status: Acute (2) Respiratory distress Status: Acute (3) COPD exacerbation Status: Acute (4) Morbid obesity Status: Chronic (5) Diabetes mellitus Status: Chronic - Assessment and Plan (Free Text) Plan: DC iv AZACTAM 2 G iv PIGGYBACK EVERY 12 HOURLY FOR NOW 03/21/18 START IV MERREM 1GM IVPB Q 8HRLY 03/25/18 MUPIRICON OINTMENT 5ML BID [facility] X 7 DAYS. F/U CXR IN AM CONTACT ISOLATION PULMONARY TOILET /DUONEB TREATMENTS. CASE DISCUSSED WITH LEONOR Carey
[2018-03-25] MEDS: Meropenem 1 GM in Sodium Chloride 0.9% 100 ML IVPB SCH ×2 (12:58→22:51)
--- NOTE | 2018-03-25 17:33 | CP.PCM.PN ---
Subjective - Date & Time of Evaluation Date of Evaluation: 03/25/18 Time of Evaluation: 11:35 - Subjective Subjective: patient seen and examined Lying comfortably in no distress Minimal secretions Clinically improving Afebrile Objective - Vital Signs/Intake and Output Vital Signs (last 24 hours): Temp Pulse Resp BP Pulse Ox 98.5 F 92 H 13 150/91 H 98 03/25/18 12:00 03/25/18 14:00 03/25/18 14:00 03/25/18 13:54 03/25/18 14:00 Intake and Output: 03/25/18 03/25/18 06:59 18:59 Intake Total 480 Output Total 0 Balance 480 - Medications Medications: Current Medications Acetaminophen (Tylenol 325mg Tab) 650 mg PO Q6 PRN PRN Reason: Fever >100.4 F Last Admin: 03/24/18 11:42 Dose: 650 mg Acetaminophen (Tylenol 325mg Tab) 650 mg PO Q6H PRN PRN Reason: Pain, Mild (1-3) Last Admin: 03/25/18 13:15 Dose: 650 mg Albuterol/Ipratropium (Duoneb 3 Mg/0.5 Mg (3 Ml) Ud) 3 ml INH RQ6 [facility] Last Admin: 03/25/18 13:24 Dose: 3 ml Gabapentin (Neurontin) 800 mg PO TID [facility] Last Admin: 03/25/18 17:21 Dose: 800 mg Guaifenesin (Mucinex La) 600 mg PO TID [facility] Last Admin: 03/25/18 17:21 Dose: 600 mg Heparin Sodium (Porcine) (Heparin) 5,000 units SC Q12 [facility] Meropenem 1 gm/ Sodium (Chloride) 100 mls @ 100 mls/hr IVPB Q8H [facility]; Protocol Last Admin: 03/25/18 12:58 Dose: 100 mls/hr Insulin Glargine (Lantus) 17 unit SC HS [facility] Last Admin: 03/24/18 22:39 Dose: 17 units Insulin Human Regular (Novolin R) 0 unit SC ACHS [facility]; Protocol Last Admin: 03/25/18 16:31 Dose: 10 units Lorazepam (Ativan) 1 mg IVP Q4H PRN PRN Reason: Anxiety Last Admin: 03/23/18 21:45 Dose: 1 mg Lorazepam (Ativan) 2 mg PO Q12H PRN PRN Reason: Anxiety Last Admin: 03/23/18 16:22 Dose: 2 mg Magnesium Hydroxide (Milk Of Magnesia) 30 ml PO DAILY PRN PRN Reason: Constipation Methylprednisolone (Solu-Medrol) 40 mg IVP Q12 [facility] Last Admin: 03/25/18 09:34 Dose: 40 mg Montelukast Sodium (Singulair) 10 mg PO [facility] Last Admin: 03/24/18 22:39 Dose: 10 mg Mupirocin (Bactroban 2% Nasal) 0.25 gm LINA BID [facility] Last Admin: 03/25/18 17:21 Dose: 0.25 gm Pantoprazole Sodium (Protonix Inj) 40 mg IVP DAILY [facility] Last Admin: 03/25/18 09:35 Dose: 40 mg Quetiapine Fumarate (Seroquel Xr) 400 mg PO Q12 [facility] Last Admin: 03/25/18 09:35 Dose: 400 mg Sertraline HCl (Zoloft) 100 mg PO BID [facility] Last Admin: 03/25/18 17:21 Dose: 100 mg Trazodone HCl (Desyrel) 150 mg PO [facility] Last Admin: 03/24/18 22:36 Dose: 150 mg - Labs Labs: 03/25/18 10:57 03/25/18 06:05 - Head Exam Head Exam: ATRAUMATIC, NORMOCEPHALIC - ENT Exam ENT Exam: Mucous Membranes Moist - Respiratory Exam Respiratory Exam: Clear to Ausculation Bilateral Assessment and Plan (1) COPD exacerbation Status: Acute (2) Pneumonia Assessment & Plan: continue antibiotics per infectious disease Sputum positive for Proteus Nebulizer treatment trach care Status: Acute
--- NOTE | 2018-03-25 20:40 | CP.PCM.PN ---
Subjective - Date & Time of Evaluation Date of Evaluation: 03/25/18 Time of Evaluation: 09:00 - Subjective Subjective: dictated Objective - Vital Signs/Intake and Output Vital Signs (last 24 hours): Temp Pulse Resp BP Pulse Ox 98.5 F 84 18 151/83 H 98 03/25/18 16:00 03/25/18 19:00 03/25/18 19:00 03/25/18 16:00 03/25/18 19:00 Intake and Output: 03/25/18 03/26/18 18:59 06:59 Intake Total 600 Output Total 700 Balance -100 - Medications Medications: Current Medications Acetaminophen (Tylenol 325mg Tab) 650 mg PO Q6 PRN PRN Reason: Fever >100.4 F Last Admin: 03/24/18 11:42 Dose: 650 mg Acetaminophen (Tylenol 325mg Tab) 650 mg PO Q6H PRN PRN Reason: Pain, Mild (1-3) Last Admin: 03/25/18 13:15 Dose: 650 mg Albuterol/Ipratropium (Duoneb 3 Mg/0.5 Mg (3 Ml) Ud) 3 ml INH RQ6 [facility] Last Admin: 03/25/18 19:51 Dose: 3 ml Gabapentin (Neurontin) 800 mg PO TID [facility] Last Admin: 03/25/18 17:21 Dose: 800 mg Guaifenesin (Mucinex La) 600 mg PO TID [facility] Last Admin: 03/25/18 17:21 Dose: 600 mg Heparin Sodium (Porcine) (Heparin) 5,000 units SC Q12 [facility] Meropenem 1 gm/ Sodium (Chloride) 100 mls @ 100 mls/hr IVPB Q8H [facility]; Protocol Last Admin: 03/25/18 12:58 Dose: 100 mls/hr Insulin Glargine (Lantus) 17 unit SC HS [facility] Last Admin: 03/24/18 22:39 Dose: 17 units Insulin Human Regular (Novolin R) 0 unit SC ACHS [facility]; Protocol Last Admin: 03/25/18 16:31 Dose: 10 units Lorazepam (Ativan) 1 mg IVP Q4H PRN PRN Reason: Anxiety Last Admin: 03/23/18 21:45 Dose: 1 mg Lorazepam (Ativan) 2 mg PO Q12H PRN PRN Reason: Anxiety Last Admin: 03/23/18 16:22 Dose: 2 mg Magnesium Hydroxide (Milk Of Magnesia) 30 ml PO DAILY PRN PRN Reason: Constipation Methylprednisolone (Solu-Medrol) 40 mg IVP Q12 [facility] Last Admin: 03/25/18 09:34 Dose: 40 mg Montelukast Sodium (Singulair) 10 mg PO [facility] Last Admin: 03/24/18 22:39 Dose: 10 mg Mupirocin (Bactroban 2% Nasal) 0.25 gm LINA BID [facility] Last Admin: 03/25/18 17:21 Dose: 0.25 gm Pantoprazole Sodium (Protonix Inj) 40 mg IVP DAILY [facility] Last Admin: 03/25/18 09:35 Dose: 40 mg Quetiapine Fumarate (Seroquel Xr) 400 mg PO Q12 [facility] Last Admin: 03/25/18 09:35 Dose: 400 mg Sertraline HCl (Zoloft) 100 mg PO BID [facility] Last Admin: 03/25/18 17:21 Dose: 100 mg Trazodone HCl (Desyrel) 150 mg PO [facility] Last Admin: 03/24/18 22:36 Dose: 150 mg - Labs Labs: 03/25/18 10:57 03/25/18 06:05
[2018-03-25] MEDS: (Lantus) Insulin Glargine, Recombinant SC SCH (22:14)
--- NOTE | 2018-03-26 01:26 | PN ---
DATE: 03/25/2018 SUBJECTIVE: The patient is afebrile. She is improving. She is less short of breath, less cough, less wheezing. Decreased secretion. No nausea or vomiting. PHYSICAL EXAMINATION: VITAL SIGNS: Blood pressure 132/68, pulse 84, respiratory rate 20, temperature 99. LUNGS: Bilateral inspiratory and expiratory rhonchi. Decreased air entry. CARDIOVASCULAR SYSTEM: PMI in the fifth intercostal space. S1 and S2 are regular. No heave. No thrill. ABDOMEN: Soft. Nontender. Bowel sounds are positive. ASSESSMENT: 1. Pneumonia. It is complicated pneumonia as a result of tracheostomy with inability to clear up secretion. In the past, we have attempted to take her tracheostomy. After it failed, the patient ended up on ventilator. 2. Bronchial asthma exacerbation. 3. Type 2 diabetes. 4. Morbid obesity. 5. Depression. 6. Hypertension. PLAN: Medical management. Monitor the patient. Antibiotics. Suctioning. Ad Khan MD
[2018-03-26] MEDS: Albuterol-Ipratrop 3 mg / 0.5 (3 ml) UD INH SCH ×4 (01:42→19:17)
[2018-03-26] MEDS: Meropenem 1 GM in Sodium Chloride 0.9% 100 ML IVPB SCH ×3 (07:53→22:20)
[2018-03-26] MEDS: (Novolin R) Insulin Human Regular 100 units/ml vial SC SCH ×4 (08:57→22:19)
[2018-03-26] MEDS: MethylPREDNISolone 40 mg Vial IVP SCH ×2 (09:50→22:18)
[2018-03-26] MEDS: QUEtiapine 200 mg XR Tab PO SCH ×2 (09:50→22:17)
[2018-03-26] MEDS: guaiFENesin 600 mg ER Tab PO SCH ×3 (10:07→18:07)
[2018-03-26] MEDS: Mupirocin 2% Ointment (NASAL) NAS SCH ×2 (12:03→17:54)
--- NOTE | 2018-03-26 12:13 | RAD ---
Date of service: 03/26/2018 HISTORY: [facility] COMPARISON: 03/20/2018 FINDINGS: LUNGS: Improved aeration of the lungs. Low lung volumes noted. PLEURA: No significant pleural effusion identified, no pneumothorax apparent. CARDIOVASCULAR: Atherosclerotic calcifications identified primarily aortic arch. Cardiomegaly. No evidence of acute, significant cardiovascular disease. OSSEOUS STRUCTURES: No significant abnormalities. VISUALIZED UPPER ABDOMEN: Normal. OTHER FINDINGS: Stable, satisfactory position of tracheostomy device. IMPRESSION: Improved aeration of the lungs. Otherwise stable examination.
--- NOTE | 2018-03-26 14:30 | CP.PCM.PN ---
Subjective - Date & Time of Evaluation Date of Evaluation: 03/26/18 Time of Evaluation: 14:30 - Subjective Subjective: AFEBRILE, +VE CONGESTED PRODUCTIVE COUGH ON IV ABX SEEN BY PULMONARY CASE DISCUSSED WITH SALES SERVICE COORDINATOR MR CORREIA . Objective - Vital Signs/Intake and Output Vital Signs (last 24 hours): Temp Pulse Resp BP Pulse Ox 98.4 F 82 20 123/72 98 03/26/18 12:00 03/26/18 12:00 03/26/18 12:00 03/26/18 12:00 03/26/18 12:00 Intake and Output: 03/26/18 03/26/18 06:59 18:59 Intake Total 100 Balance 100 - Medications Medications: Current Medications Acetaminophen (Tylenol 325mg Tab) 650 mg PO Q6 PRN PRN Reason: Fever >100.4 F Last Admin: 03/24/18 11:42 Dose: 650 mg Acetaminophen (Tylenol 325mg Tab) 650 mg PO Q6H PRN PRN Reason: Pain, Mild (1-3) Last Admin: 03/26/18 12:03 Dose: 650 mg Albuterol/Ipratropium (Duoneb 3 Mg/0.5 Mg (3 Ml) Ud) 3 ml INH RQ6 [facility] Last Admin: 03/26/18 13:20 Dose: 3 ml Gabapentin (Neurontin) 800 mg PO TID [facility] Last Admin: 03/26/18 14:25 Dose: 800 mg Guaifenesin (Mucinex La) 600 mg PO TID [facility] Last Admin: 03/26/18 14:25 Dose: 600 mg Heparin Sodium (Porcine) (Heparin) 5,000 units SC Q12 [facility] Last Admin: 03/26/18 09:49 Dose: 5,000 units Meropenem 1 gm/ Sodium (Chloride) 100 mls @ 100 mls/hr IVPB Q8H [facility]; Protocol Last Admin: 03/26/18 12:04 Dose: 100 mls/hr Insulin Glargine (Lantus) 17 unit SC HS [facility] Last Admin: 03/25/18 22:14 Dose: 17 units Insulin Human Regular (Novolin R) 0 unit SC ACHS [facility]; Protocol Last Admin: 03/26/18 12:02 Dose: 3 units Lorazepam (Ativan) 1 mg IVP Q4H PRN PRN Reason: Anxiety Last Admin: 03/25/18 22:22 Dose: 1 mg Lorazepam (Ativan) 2 mg PO Q12H PRN PRN Reason: Anxiety Last Admin: 03/23/18 16:22 Dose: 2 mg Magnesium Hydroxide (Milk Of Magnesia) 30 ml PO DAILY PRN PRN Reason: Constipation Methylprednisolone (Solu-Medrol) 40 mg IVP Q12 [facility] Last Admin: 03/26/18 09:50 Dose: 40 mg Montelukast Sodium (Singulair) 10 mg PO [facility] Last Admin: 03/25/18 22:08 Dose: 10 mg Mupirocin (Bactroban 2% Nasal) 0.25 gm LINA BID [facility] Last Admin: 03/26/18 12:03 Dose: 0.25 gm Pantoprazole Sodium (Protonix Ec Tab) 40 mg PO DAILY [facility] Quetiapine Fumarate (Seroquel Xr) 400 mg PO Q12 [facility] Last Admin: 03/26/18 09:50 Dose: 400 mg Sertraline HCl (Zoloft) 100 mg PO BID [facility] Last Admin: 03/26/18 09:50 Dose: 100 mg Trazodone HCl (Desyrel) 150 mg PO [facility] Last Admin: 03/25/18 22:52 Dose: 150 mg - Labs Labs: 03/25/18 10:57 03/25/18 06:05 - Constitutional Appears: No Acute Distress - Head Exam Head Exam: NORMAL INSPECTION - Eye Exam Eye Exam: EOMI, PERRL - ENT Exam ENT Exam: Normal Oropharynx Additional comments: +VE TRACH - Neck Exam Neck Exam: Normal Inspection - Respiratory Exam Respiratory Exam: Rhonchi (B/L), NORMAL BREATHING PATTERN - Cardiovascular Exam Cardiovascular Exam: REGULAR RHYTHM, +S1, +S2 - GI/Abdominal Exam GI & Abdominal Exam: Soft, Normal Bowel Sounds - Extremities Exam Extremities Exam: Pedal Edema. absent: Calf Tenderness - Neurological Exam Neurological Exam: Alert, Awake, CN II-XII Intact, Oriented x3, Reflexes Normal - Psychiatric Exam Psychiatric exam: Normal Mood - Skin Skin Exam: Normal Color, Warm Assessment and Plan (1) Pneumonia Status: Acute (2) Respiratory distress Status: Acute (3) COPD exacerbation Status: Acute (4) Morbid obesity Status: Chronic (5) Diabetes mellitus Status: Chronic - Assessment and Plan (Free Text) Plan: CONTINUE IV MERREM 1GM IVPB Q 8HRLY 03/25/18 X 5 DAYS MUPIRICON OINTMENT 5ML BID [facility] X 7 DAYS. F/U CXR. 03/26/18 CONTACT ISOLATION PULMONARY TOILET /DUONEB TREATMENTS. CASE DISCUSSED WITH LEONOR Carey
--- NOTE | 2018-03-26 16:11 | CP.PCM.PN ---
Subjective - Date & Time of Evaluation Date of Evaluation: 03/26/18 Time of Evaluation: 11:00 - Subjective Subjective: Ms Moser was seen and examined at bedside this morning. Patient is in NAD and sitting comfortably in the chair. She states that her breathing is somewhat better compared to yesterday, but unchanged from baseline. She continues to have a productive cough with thick mucus build up. This mucus is noted to be yellow in color during suctioning. Currently denies fever, chills, chest pain, hemoptysis, n/v. Exam: Gen: No acute distress. AAOx3. Trach in place, clean dry and intact Card: RRRR, no murmurs noted. Lungs: (+) Rhonchi heard on auscultation Abd: Soft, non-distended, non tender. Normal bowel sounds. A&P 1. COPD exacerbation - Mucus production improved today, continue suctions and trach care - Continue vitals monitoring - Continue current medications - CXR 03/26: improved aeration of the lungs compared to prior 2. Pneumonia - Sputum (+) Proteus - Continue Meropenum Objective - Vital Signs/Intake and Output Vital Signs (last 24 hours): Temp Pulse Resp BP Pulse Ox 98.4 F 82 20 131/62 98 03/26/18 12:00 03/26/18 12:00 03/26/18 12:00 03/26/18 13:54 03/26/18 12:00 Intake and Output: 03/26/18 03/26/18 06:59 18:59 Intake Total 100 Balance 100 - Medications Medications: Current Medications Acetaminophen (Tylenol 325mg Tab) 650 mg PO Q6 PRN PRN Reason: Fever >100.4 F Last Admin: 03/24/18 11:42 Dose: 650 mg Acetaminophen (Tylenol 325mg Tab) 650 mg PO Q6H PRN PRN Reason: Pain, Mild (1-3) Last Admin: 03/26/18 12:03 Dose: 650 mg Albuterol/Ipratropium (Duoneb 3 Mg/0.5 Mg (3 Ml) Ud) 3 ml INH RQ6 [facility] Last Admin: 03/26/18 13:20 Dose: 3 ml Gabapentin (Neurontin) 800 mg PO TID [facility] Last Admin: 03/26/18 14:25 Dose: 800 mg Guaifenesin (Mucinex La) 600 mg PO TID [facility] Last Admin: 03/26/18 14:25 Dose: 600 mg Heparin Sodium (Porcine) (Heparin) 5,000 units SC Q12 [facility] Last Admin: 03/26/18 09:49 Dose: 5,000 units Meropenem 1 gm/ Sodium (Chloride) 100 mls @ 100 mls/hr IVPB Q8H [facility]; Protocol Last Admin: 03/26/18 12:04 Dose: 100 mls/hr Insulin Glargine (Lantus) 17 unit SC [facility] Last Admin: 03/25/18 22:14 Dose: 17 units Insulin Human Regular (Novolin R) 0 unit SC ACHS [facility]; Protocol Last Admin: 03/26/18 12:02 Dose: 3 units Lorazepam (Ativan) 1 mg IVP Q4H PRN PRN Reason: Anxiety Last Admin: 03/25/18 22:22 Dose: 1 mg Lorazepam (Ativan) 2 mg PO Q12H PRN PRN Reason: Anxiety Last Admin: 03/23/18 16:22 Dose: 2 mg Magnesium Hydroxide (Milk Of Magnesia) 30 ml PO DAILY PRN PRN Reason: Constipation Methylprednisolone (Solu-Medrol) 40 mg IVP Q12 [facility] Last Admin: 03/26/18 09:50 Dose: 40 mg Montelukast Sodium (Singulair) 10 mg PO [facility] Last Admin: 03/25/18 22:08 Dose: 10 mg Mupirocin (Bactroban 2% Nasal) 0.25 gm LINA BID [facility] Last Admin: 03/26/18 12:03 Dose: 0.25 gm Pantoprazole Sodium (Protonix Ec Tab) 40 mg PO DAILY [facility] Quetiapine Fumarate (Seroquel Xr) 400 mg PO Q12 [facility] Last Admin: 03/26/18 09:50 Dose: 400 mg Sertraline HCl (Zoloft) 100 mg PO BID [facility] Last Admin: 03/26/18 09:50 Dose: 100 mg Trazodone HCl (Desyrel) 150 mg PO [facility] Last Admin: 03/25/18 22:52 Dose: 150 mg - Labs Labs: 03/25/18 10:57 03/25/18 06:05 Assessment and Plan (1) COPD exacerbation Status: Acute (2) Pneumonia Status: Acute
--- NOTE | 2018-03-26 21:22 | CP.PCM.PN ---
Subjective - Date & Time of Evaluation Date of Evaluation: 03/26/18 Time of Evaluation: 14:40 - Subjective Subjective: dictated Objective - Vital Signs/Intake and Output Vital Signs (last 24 hours): Temp Pulse Resp BP Pulse Ox 98.1 F 91 H 18 131/55 L 97 03/26/18 20:00 03/26/18 20:00 03/26/18 20:00 03/26/18 20:00 03/26/18 20:00 Intake and Output: 03/26/18 03/27/18 18:59 06:59 Intake Total 900 Output Total 600 Balance 300 - Medications Medications: Current Medications Acetaminophen (Tylenol 325mg Tab) 650 mg PO Q6 PRN PRN Reason: Fever >100.4 F Last Admin: 03/24/18 11:42 Dose: 650 mg Acetaminophen (Tylenol 325mg Tab) 650 mg PO Q6H PRN PRN Reason: Pain, Mild (1-3) Last Admin: 03/26/18 18:06 Dose: 650 mg Albuterol/Ipratropium (Duoneb 3 Mg/0.5 Mg (3 Ml) Ud) 3 ml INH RQ6 [facility] Last Admin: 03/26/18 19:17 Dose: 3 ml Gabapentin (Neurontin) 800 mg PO TID [facility] Last Admin: 03/26/18 17:54 Dose: 800 mg Guaifenesin (Mucinex La) 600 mg PO TID [facility] Last Admin: 03/26/18 18:07 Dose: 600 mg Heparin Sodium (Porcine) (Heparin) 5,000 units SC Q12 [facility] Last Admin: 03/26/18 09:49 Dose: 5,000 units Meropenem 1 gm/ Sodium (Chloride) 100 mls @ 100 mls/hr IVPB Q8H [facility]; Protocol Last Admin: 03/26/18 12:04 Dose: 100 mls/hr Insulin Glargine (Lantus) 17 unit SC HS [facility] Last Admin: 03/25/18 22:14 Dose: 17 units Insulin Human Regular (Novolin R) 0 unit SC ACHS [facility]; Protocol Last Admin: 03/26/18 16:42 Dose: 8 units Lorazepam (Ativan) 1 mg IVP Q4H PRN PRN Reason: Anxiety Last Admin: 03/25/18 22:22 Dose: 1 mg Lorazepam (Ativan) 2 mg PO Q12H PRN PRN Reason: Anxiety Last Admin: 03/23/18 16:22 Dose: 2 mg Magnesium Hydroxide (Milk Of Magnesia) 30 ml PO DAILY PRN PRN Reason: Constipation Methylprednisolone (Solu-Medrol) 40 mg IVP Q12 [facility] Last Admin: 03/26/18 09:50 Dose: 40 mg Montelukast Sodium (Singulair) 10 mg PO [facility] Last Admin: 03/25/18 22:08 Dose: 10 mg Mupirocin (Bactroban 2% Nasal) 0.25 gm LINA BID [facility] Last Admin: 03/26/18 17:54 Dose: 0.25 gm Pantoprazole Sodium (Protonix Ec Tab) 40 mg PO DAILY [facility] Quetiapine Fumarate (Seroquel Xr) 400 mg PO Q12 [facility] Last Admin: 03/26/18 09:50 Dose: 400 mg Sertraline HCl (Zoloft) 100 mg PO BID [facility] Last Admin: 03/26/18 18:06 Dose: 100 mg Trazodone HCl (Desyrel) 150 mg PO [facility] Last Admin: 03/25/18 22:52 Dose: 150 mg - Labs Labs: 03/25/18 10:57 03/25/18 06:05
[2018-03-26] MEDS: (Lantus) Insulin Glargine, Recombinant SC SCH (22:17)
[2018-03-27] MEDS: Albuterol-Ipratrop 3 mg / 0.5 (3 ml) UD INH SCH ×4 (01:29→20:10)
[2018-03-27 01:37] VITALS: RESP 20
--- NOTE | 2018-03-27 03:38 | PN ---
DATE: 03/26/2018 SUBJECTIVE: The patient, Carin Moser, is less short of breath, less cough, less wheezing, and afebrile. No nausea or vomiting. No chest pain. Decreased chest congestion. PHYSICAL EXAMINATION: VITAL SIGNS: Blood pressure 131/55, pulse 91, respiratory rate 18, temperature 98.1. LUNGS: Bilateral decreased air entry. Positive rhonchi. CARDIOVASCULAR SYSTEM: S1 and S2, regular. ABDOMEN: Soft. ASSESSMENT: 1. Pneumonia in a patient with a history of tracheostomy with lot of secretion. 2. Exacerbation of bronchial asthma. 3. Type 2 diabetes. 4. Hypertension. PLAN: Medical management. Possible discharge. Ad Khan MD
[2018-03-27] MEDS: Meropenem 1 GM in Sodium Chloride 0.9% 100 ML IVPB SCH ×3 (05:19→20:28)
[2018-03-27] MEDS: (Novolin R) Insulin Human Regular 100 units/ml vial SC SCH ×4 (08:00→22:18)
[2018-03-27] MEDS: Pantoprazole 40 mg EC Tab PO SCH (09:42)
[2018-03-27] MEDS: guaiFENesin 600 mg ER Tab PO SCH ×3 (09:42→17:48)
[2018-03-27] MEDS: Mupirocin 2% Ointment (NASAL) NAS SCH ×2 (09:42→17:44)
[2018-03-27] MEDS: QUEtiapine 200 mg XR Tab PO SCH ×2 (09:43→22:36)
[2018-03-27] MEDS: MethylPREDNISolone 40 mg Vial IVP SCH ×2 (09:43→22:36)
--- NOTE | 2018-03-27 12:18 | CP.PCM.PN ---
Subjective - Date & Time of Evaluation Date of Evaluation: 03/27/18 Time of Evaluation: 12:18 - Subjective Subjective: AFEBRILE, +VE CONGESTED PRODUCTIVE COUGH IV -INFILTERATED, INFORMED BY COUNTERSINKER MS JONES. NEEDS IV ABX DISCUSSED . CONSIDER MIDLINE. CONTINUE IV MERREM ORDERED. Objective - Vital Signs/Intake and Output Vital Signs (last 24 hours): Temp Pulse Resp BP Pulse Ox 98.1 F 82 20 121/79 94 L 03/27/18 08:33 03/27/18 08:33 03/27/18 08:33 03/27/18 08:33 03/27/18 08:33 Intake and Output: 03/27/18 03/27/18 06:59 18:59 Intake Total 340 Output Total 750 Balance -410 - Medications Medications: Current Medications Acetaminophen (Tylenol 325mg Tab) 650 mg PO Q6 PRN PRN Reason: Fever >100.4 F Last Admin: 03/24/18 11:42 Dose: 650 mg Acetaminophen (Tylenol 325mg Tab) 650 mg PO Q6H PRN PRN Reason: Pain, Mild (1-3) Last Admin: 03/26/18 18:06 Dose: 650 mg Albuterol/Ipratropium (Duoneb 3 Mg/0.5 Mg (3 Ml) Ud) 3 ml INH RQ6 [facility] Last Admin: 03/27/18 07:57 Dose: 3 ml Gabapentin (Neurontin) 800 mg PO TID [facility] Last Admin: 03/27/18 09:42 Dose: 800 mg Guaifenesin (Mucinex La) 600 mg PO TID [facility] Last Admin: 03/27/18 09:42 Dose: 600 mg Heparin Sodium (Porcine) (Heparin) 5,000 units SC Q12 [facility] Last Admin: 03/27/18 09:43 Dose: 5,000 units Meropenem 1 gm/ Sodium (Chloride) 100 mls @ 100 mls/hr IVPB Q8H [facility]; Protocol Last Admin: 03/27/18 12:13 Dose: 100 mls/hr Insulin Glargine (Lantus) 17 unit SC HS [facility] Last Admin: 03/26/18 22:17 Dose: 17 units Insulin Human Regular (Novolin R) 0 unit SC ACHS [facility]; Protocol Last Admin: 03/27/18 12:12 Dose: 6 units Lorazepam (Ativan) 1 mg IVP Q4H PRN PRN Reason: Anxiety Last Admin: 03/25/18 22:22 Dose: 1 mg Lorazepam (Ativan) 2 mg PO Q12H PRN PRN Reason: Anxiety Last Admin: 03/26/18 22:16 Dose: 2 mg Magnesium Hydroxide (Milk Of Magnesia) 30 ml PO DAILY PRN PRN Reason: Constipation Methylprednisolone (Solu-Medrol) 40 mg IVP Q12 [facility] Last Admin: 03/27/18 09:43 Dose: 40 mg Montelukast Sodium (Singulair) 10 mg PO [facility] Last Admin: 03/26/18 22:18 Dose: 10 mg Mupirocin (Bactroban 2% Nasal) 0.25 gm LINA BID [facility] Last Admin: 03/27/18 09:42 Dose: 0.25 gm Pantoprazole Sodium (Protonix Ec Tab) 40 mg PO DAILY [facility] Last Admin: 03/27/18 09:42 Dose: 40 mg Quetiapine Fumarate (Seroquel Xr) 400 mg PO Q12 [facility] Last Admin: 03/27/18 09:43 Dose: 400 mg Sertraline HCl (Zoloft) 100 mg PO BID [facility] Last Admin: 03/27/18 09:42 Dose: 100 mg Trazodone HCl (Desyrel) 150 mg PO [facility] Last Admin: 03/26/18 22:16 Dose: 150 mg - Labs Labs: 03/25/18 10:57 03/25/18 06:05 - Constitutional Appears: No Acute Distress - Head Exam Head Exam: NORMAL INSPECTION - Eye Exam Eye Exam: EOMI, PERRL - ENT Exam ENT Exam: Normal Oropharynx - Neck Exam Neck Exam: Normal Inspection - Respiratory Exam Respiratory Exam: Accessory Muscle Use, Prolonged Expiratory Phase, Rhonchi - Cardiovascular Exam Cardiovascular Exam: Tachycardia, REGULAR RHYTHM, +S1, +S2 - GI/Abdominal Exam GI & Abdominal Exam: Soft, Normal Bowel Sounds - Extremities Exam Extremities Exam: Normal Capillary Refill, Pedal Edema. absent: Calf Tenderness - Neurological Exam Neurological Exam: Alert, Awake, CN II-XII Intact, Oriented x3, Reflexes Normal - Psychiatric Exam Psychiatric exam: Normal Mood - Skin Skin Exam: Normal Color, Warm Assessment and Plan (1) Pneumonia Status: Acute (2) Respiratory distress Status: Acute (3) COPD exacerbation Status: Acute (4) Morbid obesity Status: Chronic (5) Diabetes mellitus Status: Chronic - Assessment and Plan (Free Text) Plan: CONTINUE IV MERREM 1GM IVPB Q 8HRLY 03/25/18 X 4 MORE DAYS. MUPIRICON OINTMENT 5ML BID [facility] X 7 DAYS. F/U CXR.03/26 NOTED- BETTER AERATION OF LUNGS COMPARED TO PRIOR CONTACT ISOLATION CONTINUE PULMONARY TOILET & /DUONEB TREATMENTS.
[2018-03-27] MEDS ORDERED: Morphine 4 MG/ML VIAL IVP ONE (13:45)
[2018-03-27] MEDS ORDERED: Morphine 4 MG/ML VIAL SC ONE (14:45)
--- NOTE | 2018-03-27 14:58 | CP.PCM.PN ---
Subjective - Date & Time of Evaluation Date of Evaluation: 03/27/18 Time of Evaluation: 10:00 - Subjective Subjective: Ms Moser was seen and examined at bedside this morning. Patient is in NAD and sitting comfortably in the chair. Her breathing unchanged from baseline and her cough is somewhat less in frequency. Patient continues to report throat/ma ndibular irritation from the cough/tracheitis. Currently denies fever, chills, chest pain, hemoptysis, n/v. Exam: Gen: No acute distress. AAOx3. Trach in place, clean dry and intact Card: RRRR, no murmurs noted. Lungs: No respiratory distress. Symmetric chest excursions. CTA bilaterally. Abd: Soft, non-distended, non tender. Normal bowel sounds. A&P 1. COPD exacerbation - Mucus production improved today, continue suctions and trach care - Continue vitals monitoring - Continue current medications - CXR 03/26: improved aeration of the lungs compared to prior 2. Pneumonia - Sputum (+) Proteus - Continue Meropenum n Objective - Vital Signs/Intake and Output Vital Signs (last 24 hours): Temp Pulse Resp BP Pulse Ox 98.1 F 82 20 121/79 94 L 03/27/18 08:33 03/27/18 08:33 03/27/18 08:33 03/27/18 08:33 03/27/18 08:33 Intake and Output: 03/27/18 03/27/18 06:59 18:59 Intake Total 340 Output Total 750 Balance -410 - Medications Medications: Current Medications Acetaminophen (Tylenol 325mg Tab) 650 mg PO Q6 PRN PRN Reason: Fever >100.4 F Last Admin: 03/24/18 11:42 Dose: 650 mg Acetaminophen (Tylenol 325mg Tab) 650 mg PO Q6H PRN PRN Reason: Pain, Mild (1-3) Last Admin: 03/26/18 18:06 Dose: 650 mg Albuterol/Ipratropium (Duoneb 3 Mg/0.5 Mg (3 Ml) Ud) 3 ml INH RQ6 [facility] Last Admin: 03/27/18 13:34 Dose: 3 ml Gabapentin (Neurontin) 800 mg PO TID [facility] Last Admin: 03/27/18 14:20 Dose: 800 mg Guaifenesin (Mucinex La) 600 mg PO TID [facility] Last Admin: 03/27/18 14:20 Dose: 600 mg Heparin Sodium (Porcine) (Heparin) 5,000 units SC Q12 [facility] Last Admin: 03/27/18 09:43 Dose: 5,000 units Meropenem 1 gm/ Sodium (Chloride) 100 mls @ 100 mls/hr IVPB Q8H [facility]; Protocol Last Admin: 03/27/18 12:13 Dose: 100 mls/hr Insulin Glargine (Lantus) 17 unit SC [facility] Last Admin: 03/26/18 22:17 Dose: 17 units Insulin Human Regular (Novolin R) 0 unit SC ACHS [facility]; Protocol Last Admin: 03/27/18 12:12 Dose: 6 units Lorazepam (Ativan) 1 mg IVP Q4H PRN PRN Reason: Anxiety Last Admin: 03/25/18 22:22 Dose: 1 mg Lorazepam (Ativan) 2 mg PO Q12H PRN PRN Reason: Anxiety Last Admin: 03/26/18 22:16 Dose: 2 mg Magnesium Hydroxide (Milk Of Magnesia) 30 ml PO DAILY PRN PRN Reason: Constipation Methylprednisolone (Solu-Medrol) 40 mg IVP Q12 [facility] Last Admin: 03/27/18 09:43 Dose: 40 mg Montelukast Sodium (Singulair) 10 mg PO [facility] Last Admin: 03/26/18 22:18 Dose: 10 mg Mupirocin (Bactroban 2% Nasal) 0.25 gm LINA BID [facility] Last Admin: 03/27/18 09:42 Dose: 0.25 gm Oxycodone/Acetaminophen (Percocet 5/325 Mg Tab) 1 tab PO Q6H PRN PRN Reason: Pain, severe (8-10) Stop: 03/30/18 13:32 Pantoprazole Sodium (Protonix Ec Tab) 40 mg PO DAILY [facility] Last Admin: 03/27/18 09:42 Dose: 40 mg Quetiapine Fumarate (Seroquel Xr) 400 mg PO Q12 [facility] Last Admin: 03/27/18 09:43 Dose: 400 mg Sertraline HCl (Zoloft) 100 mg PO BID [facility] Last Admin: 03/27/18 09:42 Dose: 100 mg Trazodone HCl (Desyrel) 150 mg PO [facility] Last Admin: 03/26/18 22:16 Dose: 150 mg - Labs Labs: 03/25/18 10:57 03/25/18 06:05 Assessment and Plan (1) COPD exacerbation Status: Acute (2) Pneumonia Status: Acute
[2018-03-27] MEDS: Oxycodone/Acetaminophen 5/325 mg Tab PO PRN (20:01)
--- NOTE | 2018-03-27 21:44 | CP.PCM.PN ---
Subjective - Date & Time of Evaluation Date of Evaluation: 03/27/18 Time of Evaluation: 07:00 - Subjective Subjective: dictated Objective - Vital Signs/Intake and Output Vital Signs (last 24 hours): Temp Pulse Resp BP Pulse Ox 98.1 F 82 20 121/79 94 L 03/27/18 08:33 03/27/18 08:33 03/27/18 08:33 03/27/18 08:33 03/27/18 08:33 - Medications Medications: Current Medications Acetaminophen (Tylenol 325mg Tab) 650 mg PO Q6 PRN PRN Reason: Fever >100.4 F Last Admin: 03/24/18 11:42 Dose: 650 mg Acetaminophen (Tylenol 325mg Tab) 650 mg PO Q6H PRN PRN Reason: Pain, Mild (1-3) Last Admin: 03/26/18 18:06 Dose: 650 mg Albuterol/Ipratropium (Duoneb 3 Mg/0.5 Mg (3 Ml) Ud) 3 ml INH RQ6 [facility] Last Admin: 03/27/18 20:10 Dose: 3 ml Gabapentin (Neurontin) 800 mg PO TID [facility] Last Admin: 03/27/18 18:02 Dose: 800 mg Guaifenesin (Mucinex La) 600 mg PO TID [facility] Last Admin: 03/27/18 17:48 Dose: 600 mg Heparin Sodium (Porcine) (Heparin) 5,000 units SC Q12 [facility] Last Admin: 03/27/18 09:43 Dose: 5,000 units Meropenem 1 gm/ Sodium (Chloride) 100 mls @ 100 mls/hr IVPB Q8H [facility]; Protocol Last Admin: 03/27/18 20:28 Dose: 100 mls/hr Insulin Glargine (Lantus) 17 unit SC HS [facility] Last Admin: 03/26/18 22:17 Dose: 17 units Insulin Human Regular (Novolin R) 0 unit SC ACHS [facility]; Protocol Last Admin: 03/27/18 16:53 Dose: 6 units Lorazepam (Ativan) 1 mg IVP Q4H PRN PRN Reason: Anxiety Last Admin: 03/25/18 22:22 Dose: 1 mg Lorazepam (Ativan) 2 mg PO Q12H PRN PRN Reason: Anxiety Last Admin: 03/26/18 22:16 Dose: 2 mg Magnesium Hydroxide (Milk Of Magnesia) 30 ml PO DAILY PRN PRN Reason: Constipation Methylprednisolone (Solu-Medrol) 40 mg IVP Q12 [facility] Last Admin: 03/27/18 09:43 Dose: 40 mg Montelukast Sodium (Singulair) 10 mg PO [facility] Last Admin: 03/26/18 22:18 Dose: 10 mg Mupirocin (Bactroban 2% Nasal) 0.25 gm LINA BID [facility] Last Admin: 03/27/18 17:44 Dose: 0.25 gm Oxycodone/Acetaminophen (Percocet 5/325 Mg Tab) 1 tab PO Q6H PRN PRN Reason: Pain, severe (8-10) Stop: 03/30/18 13:32 Last Admin: 03/27/18 20:01 Dose: 1 tab Pantoprazole Sodium (Protonix Ec Tab) 40 mg PO DAILY [facility] Last Admin: 03/27/18 09:42 Dose: 40 mg Quetiapine Fumarate (Seroquel Xr) 400 mg PO Q12 [facility] Last Admin: 03/27/18 09:43 Dose: 400 mg Sertraline HCl (Zoloft) 100 mg PO BID [facility] Last Admin: 03/27/18 18:01 Dose: 100 mg Trazodone HCl (Desyrel) 150 mg PO [facility] Last Admin: 03/26/18 22:16 Dose: 150 mg - Labs Labs: 03/25/18 10:57 03/25/18 06:05
[2018-03-27] MEDS: (Lantus) Insulin Glargine, Recombinant SC SCH (22:35)
--- NOTE | 2018-03-28 00:34 | PN ---
DATE: 03/27/2018 SUBJECTIVE: Carin Moser is still coughing, wheezing. She has pain. The patient has tracheostomy with thick secretion; however, the secretions are clearing up. No nausea or vomiting. Positive cough. Positive wheezing. Less short of breath. No fever. Sputum culture grew Proteus mirabilis which is resistant to multiple drugs including cefepime and Cipro, but it is sensitive to ertapenem, meropenem, and Zosyn. PHYSICAL EXAMINATION: VITAL SIGNS: Blood pressure 121/79, pulse 82, respiratory rate 20, temperature 98.1. LUNGS: Bilateral inspiratory and expiratory rhonchi. Positive crackles. CARDIOVASCULAR SYSTEM: S1 and S2, regular. ABDOMEN: Soft, nontender. Bowel sounds are positive. ASSESSMENT: 1. Pneumonia, multidrug-resistant Proteus mirabilis. 2. Bronchial asthma exacerbation. 3. Type 2 diabetes. 4. Hypertension. PLAN: Continue antibiotics as per ID. Monitor the patient. Ad Khan MD
[2018-03-28] MEDS: Albuterol-Ipratrop 3 mg / 0.5 (3 ml) UD INH SCH ×3 (01:45→20:00)
[2018-03-28] MEDS: Meropenem 1 GM in Sodium Chloride 0.9% 100 ML IVPB SCH ×3 (04:38→21:58)
[2018-03-28] MEDS: Oxycodone/Acetaminophen 5/325 mg Tab PO PRN ×3 (04:39→18:56)
[2018-03-28] MEDS: (Novolin R) Insulin Human Regular 100 units/ml vial SC SCH ×4 (07:53→21:25)
[2018-03-28] MEDS: guaiFENesin 600 mg ER Tab PO SCH ×3 (10:05→18:38)
[2018-03-28] MEDS: QUEtiapine 200 mg XR Tab PO SCH ×2 (10:32→22:01)
[2018-03-28] MEDS: Pantoprazole 40 mg EC Tab PO SCH (10:33)
[2018-03-28] MEDS: MethylPREDNISolone 40 mg Vial IVP SCH ×2 (10:34→22:02)
[2018-03-28] MEDS: Mupirocin 2% Ointment (NASAL) NAS SCH ×2 (10:44→18:38)
--- NOTE | 2018-03-28 20:09 | CP.PCM.PN ---
Subjective - Date & Time of Evaluation Date of Evaluation: 03/28/18 Time of Evaluation: 20:09 - Subjective Subjective: AFEBRILE, COMFORTABLE OUT OF BED ON CHAIR. C/O THROAT PAIN FROM COUGH/?SUCTIONING. sECRETIONS LESS TENACIOUS. ON iv ANTIBIOTICS. Objective - Vital Signs/Intake and Output Vital Signs (last 24 hours): Temp Pulse Resp BP Pulse Ox 97.7 F 77 20 145/87 97 03/28/18 16:00 03/28/18 16:00 03/28/18 16:00 03/28/18 16:00 03/28/18 16:00 - Medications Medications: Current Medications Acetaminophen (Tylenol 325mg Tab) 650 mg PO Q6 PRN PRN Reason: Fever >100.4 F Last Admin: 03/24/18 11:42 Dose: 650 mg Acetaminophen (Tylenol 325mg Tab) 650 mg PO Q6H PRN PRN Reason: Pain, Mild (1-3) Last Admin: 03/26/18 18:06 Dose: 650 mg Albuterol/Ipratropium (Duoneb 3 Mg/0.5 Mg (3 Ml) Ud) 3 ml INH RQ6 [facility] Last Admin: 03/28/18 20:00 Dose: 3 ml Gabapentin (Neurontin) 800 mg PO TID [facility] Last Admin: 03/28/18 18:38 Dose: 800 mg Guaifenesin (Mucinex La) 600 mg PO TID [facility] Last Admin: 03/28/18 18:38 Dose: 600 mg Heparin Sodium (Porcine) (Heparin) 5,000 units SC Q12 [facility] Last Admin: 03/28/18 10:34 Dose: 5,000 units Meropenem 1 gm/ Sodium (Chloride) 100 mls @ 100 mls/hr IVPB Q8H [facility]; Protocol Last Admin: 03/28/18 13:47 Dose: 100 mls/hr Insulin Glargine (Lantus) 17 unit SC HS [facility] Last Admin: 03/27/18 22:35 Dose: 17 units Insulin Human Regular (Novolin R) 0 unit SC ACHS [facility]; Protocol Last Admin: 03/28/18 17:10 Dose: 2 units Lorazepam (Ativan) 1 mg IVP Q4H PRN PRN Reason: Anxiety Last Admin: 03/25/18 22:22 Dose: 1 mg Lorazepam (Ativan) 2 mg PO Q12H PRN PRN Reason: Anxiety Last Admin: 03/26/18 22:16 Dose: 2 mg Magnesium Hydroxide (Milk Of Magnesia) 30 ml PO DAILY PRN PRN Reason: Constipation Methylprednisolone (Solu-Medrol) 40 mg IVP Q12 [facility] Last Admin: 03/28/18 10:34 Dose: 40 mg Montelukast Sodium (Singulair) 10 mg PO [facility] Last Admin: 03/27/18 22:37 Dose: 10 mg Mupirocin (Bactroban 2% Nasal) 0.25 gm LINA BID [facility] Last Admin: 03/28/18 18:38 Dose: 0.25 gm Oxycodone/Acetaminophen (Percocet 5/325 Mg Tab) 1 tab PO Q6H PRN PRN Reason: Pain, severe (8-10) Stop: 03/30/18 13:32 Last Admin: 03/28/18 18:56 Dose: 1 tab Pantoprazole Sodium (Protonix Ec Tab) 40 mg PO DAILY [facility] Last Admin: 03/28/18 10:33 Dose: 40 mg Quetiapine Fumarate (Seroquel Xr) 400 mg PO Q12 [facility] Last Admin: 03/28/18 10:32 Dose: 400 mg Sertraline HCl (Zoloft) 100 mg PO BID [facility] Last Admin: 03/28/18 18:38 Dose: 100 mg Trazodone HCl (Desyrel) 150 mg PO [facility] Last Admin: 03/27/18 22:36 Dose: 150 mg - Labs Labs: 03/25/18 10:57 03/25/18 06:05 - Constitutional Appears: No Acute Distress - Head Exam Head Exam: NORMAL INSPECTION - Eye Exam Eye Exam: EOMI, PERRL - ENT Exam ENT Exam: Mucous Membranes Moist (TRACH COLLAR IN PLACE.), Normal Oropharynx - Neck Exam Neck Exam: Normal Inspection (BETTER AERATION) - Respiratory Exam Respiratory Exam: NORMAL BREATHING PATTERN (BETTER AERATION.) - Cardiovascular Exam Cardiovascular Exam: REGULAR RHYTHM, +S1, +S2 - GI/Abdominal Exam GI & Abdominal Exam: Soft, Normal Bowel Sounds - Extremities Exam Extremities Exam: Normal Capillary Refill. absent: Calf Tenderness, Pedal Edema - Neurological Exam Neurological Exam: Alert, Awake, CN II-XII Intact, Normal Gait, Oriented x3, Reflexes Normal - Psychiatric Exam Psychiatric exam: Normal Mood - Skin Skin Exam: Normal Color, Warm Assessment and Plan (1) Pneumonia Status: Acute (2) Respiratory distress Status: Acute (3) COPD exacerbation Status: Acute (4) Morbid obesity Status: Chronic (5) Diabetes mellitus Status: Chronic - Assessment and Plan (Free Text) Plan: CONTINUE IV MERREM 1GM IVPB Q 8HRLY 03/25/18 X 2 MORE DAYS. MUPIRICON OINTMENT 5ML BID NARIS X 7 DAYS. F/U CXR.03/26 NOTED- BETTER AERATION OF LUNGS COMPARED TO PRIOR CONTACT ISOLATION CONTINUE PULMONARY TOILET & /DUONEB TREATMENTS. PT FOR DC ON SUNDAY
[2018-03-28] MEDS: (Lantus) Insulin Glargine, Recombinant SC SCH (21:59)
--- NOTE | 2018-03-29 00:39 | PN ---
DATE: 03/28/2018 SUBJECTIVE: The patient has been seen by Infectious Disease. The patient is complaining of pain at the site of tracheostomy. The patient is afebrile. She is improving. She is on IV meropenem, and she needs IV meropenem for two more days. The patient is also on Bactroban cream to the naris for seven days. The patient is on contact isolation. She is afebrile. Decreased congestion except for tracheostomy site. She is feeling better. PHYSICAL EXAMINATION: VITAL SIGNS: Blood pressure 145/87, pulse 77, respiratory rate 20, temperature 97.7. LUNGS: Bilaterally decreased air entry. Positive scattered rhonchi. CARDIOVASCULAR SYSTEM: PMI not localized. S1 and S2, regular. ABDOMEN: Soft, nontender. Bowel sounds are positive. NECK: Trach site is clean. There is no wound, no irritation, no redness, and no signs of obstruction. ASSESSMENT: 1. Pain at the site of tracheostomy. We will consult Otorhinolaryngology to evaluate tracheostomy. 2. Pneumonia due to tracheostomy, gram-negative rods Proteus mirabilis. The patient is on Merrem. 3. Type 2 diabetes which is exacerbated by steroid. 4. Hypertension. PLAN: Continue IV antibiotics. ENT consult. Monitor the patient. Ad Khan MD
[2018-03-29] MEDS: Albuterol-Ipratrop 3 mg / 0.5 (3 ml) UD INH SCH ×4 (01:29→20:39)
[2018-03-29] MEDS: Meropenem 1 GM in Sodium Chloride 0.9% 100 ML IVPB SCH ×3 (05:28→21:11)
[2018-03-29] MEDS: (Novolin R) Insulin Human Regular 100 units/ml vial SC SCH ×4 (07:55→22:01)
[2018-03-29] MEDS: guaiFENesin 600 mg ER Tab PO SCH ×3 (09:55→18:29)
[2018-03-29] MEDS: MethylPREDNISolone 40 mg Vial IVP SCH ×2 (09:55→22:05)
[2018-03-29] MEDS: Pantoprazole 40 mg EC Tab PO SCH (09:55)
[2018-03-29] MEDS: Mupirocin 2% Ointment (NASAL) NAS SCH ×2 (09:55→18:29)
[2018-03-29] MEDS: QUEtiapine 200 mg XR Tab PO SCH ×2 (09:56→22:06)
[2018-03-29] MEDS: Oxycodone/Acetaminophen 5/325 mg Tab PO PRN ×2 (10:11→16:11)
--- NOTE | 2018-03-29 12:25 | CP.PCM.PN ---
Subjective - Date & Time of Evaluation Date of Evaluation: 03/29/18 Time of Evaluation: 07:00 - Subjective Subjective: dictated Objective - Vital Signs/Intake and Output Vital Signs (last 24 hours): Temp Pulse Resp BP Pulse Ox 98.4 F 78 20 107/61 99 03/29/18 08:56 03/29/18 08:56 03/29/18 08:56 03/29/18 08:56 03/29/18 08:56 Intake and Output: 03/29/18 03/29/18 06:59 18:59 Intake Total 700 Balance 700 - Medications Medications: Current Medications Acetaminophen (Tylenol 325mg Tab) 650 mg PO Q6 PRN PRN Reason: Fever >100.4 F Last Admin: 03/24/18 11:42 Dose: 650 mg Acetaminophen (Tylenol 325mg Tab) 650 mg PO Q6H PRN PRN Reason: Pain, Mild (1-3) Last Admin: 03/26/18 18:06 Dose: 650 mg Albuterol/Ipratropium (Duoneb 3 Mg/0.5 Mg (3 Ml) Ud) 3 ml INH RQ6 [facility] Last Admin: 03/29/18 07:48 Dose: 3 ml Gabapentin (Neurontin) 800 mg PO TID [facility] Last Admin: 03/29/18 09:57 Dose: 800 mg Guaifenesin (Mucinex La) 600 mg PO TID [facility] Last Admin: 03/29/18 09:55 Dose: 600 mg Meropenem 1 gm/ Sodium (Chloride) 100 mls @ 100 mls/hr IVPB Q8H [facility]; Protocol Last Admin: 03/29/18 05:28 Dose: 100 mls/hr Insulin Glargine (Lantus) 17 unit SC HS [facility] Last Admin: 03/28/18 21:59 Dose: 17 units Insulin Human Regular (Novolin R) 0 unit SC ACHS [facility]; Protocol Last Admin: 03/29/18 11:42 Dose: 6 units Lorazepam (Ativan) 1 mg IVP Q4H PRN PRN Reason: Anxiety Last Admin: 03/25/18 22:22 Dose: 1 mg Lorazepam (Ativan) 2 mg PO Q12H PRN PRN Reason: Anxiety Last Admin: 03/26/18 22:16 Dose: 2 mg Magnesium Hydroxide (Milk Of Magnesia) 30 ml PO DAILY PRN PRN Reason: Constipation Methylprednisolone (Solu-Medrol) 40 mg IVP Q12 [facility] Last Admin: 03/29/18 09:55 Dose: 40 mg Montelukast Sodium (Singulair) 10 mg PO HS [facility] Last Admin: 03/28/18 22:01 Dose: 10 mg Mupirocin (Bactroban 2% Nasal) 0.25 gm LINA BID [facility] Last Admin: 03/29/18 09:55 Dose: 0.25 gm Oxycodone/Acetaminophen (Percocet 5/325 Mg Tab) 1 tab PO Q6H PRN PRN Reason: Pain, severe (8-10) Stop: 03/30/18 13:32 Last Admin: 03/29/18 10:11 Dose: 1 tab Pantoprazole Sodium (Protonix Ec Tab) 40 mg PO DAILY [facility] Last Admin: 03/29/18 09:55 Dose: 40 mg Quetiapine Fumarate (Seroquel Xr) 400 mg PO Q12 [facility] Last Admin: 03/29/18 09:56 Dose: 400 mg Sertraline HCl (Zoloft) 100 mg PO BID [facility] Last Admin: 03/29/18 09:56 Dose: 100 mg Trazodone HCl (Desyrel) 150 mg PO [facility] Last Admin: 03/28/18 22:00 Dose: 150 mg - Labs Labs: 03/25/18 10:57 03/25/18 06:05
--- NOTE | 2018-03-29 15:38 | CP.PCM.PN ---
Subjective - Date & Time of Evaluation Date of Evaluation: 03/29/18 Time of Evaluation: 11:00 - Subjective Subjective: Patient seen and examined Cough and shortness of breath much improved Less secretions Afebrile Lying comfortably in no distress Stable from pulmonary standpoint Objective - Vital Signs/Intake and Output Vital Signs (last 24 hours): Temp Pulse Resp BP Pulse Ox 98.4 F 78 20 107/61 99 03/29/18 08:56 03/29/18 08:56 03/29/18 08:56 03/29/18 08:56 03/29/18 08:56 Intake and Output: 03/29/18 03/29/18 06:59 18:59 Intake Total 700 700 Balance 700 700 - Medications Medications: Current Medications Acetaminophen (Tylenol 325mg Tab) 650 mg PO Q6 PRN PRN Reason: Fever >100.4 F Last Admin: 03/24/18 11:42 Dose: 650 mg Acetaminophen (Tylenol 325mg Tab) 650 mg PO Q6H PRN PRN Reason: Pain, Mild (1-3) Last Admin: 03/26/18 18:06 Dose: 650 mg Albuterol/Ipratropium (Duoneb 3 Mg/0.5 Mg (3 Ml) Ud) 3 ml INH RQ6 [facility] Last Admin: 03/29/18 13:18 Dose: 3 ml Gabapentin (Neurontin) 800 mg PO TID [facility] Last Admin: 03/29/18 13:15 Dose: 800 mg Guaifenesin (Mucinex La) 600 mg PO TID [facility] Last Admin: 03/29/18 13:15 Dose: 600 mg Meropenem 1 gm/ Sodium (Chloride) 100 mls @ 100 mls/hr IVPB Q8H [facility]; Protocol Last Admin: 03/29/18 13:02 Dose: 100 mls/hr Insulin Glargine (Lantus) 17 unit SC HS [facility] Last Admin: 03/28/18 21:59 Dose: 17 units Insulin Human Regular (Novolin R) 0 unit SC ACHS [facility]; Protocol Last Admin: 03/29/18 11:42 Dose: 6 units Lorazepam (Ativan) 1 mg IVP Q4H PRN PRN Reason: Anxiety Last Admin: 03/25/18 22:22 Dose: 1 mg Lorazepam (Ativan) 2 mg PO Q12H PRN PRN Reason: Anxiety Last Admin: 03/26/18 22:16 Dose: 2 mg Magnesium Hydroxide (Milk Of Magnesia) 30 ml PO DAILY PRN PRN Reason: Constipation Methylprednisolone (Solu-Medrol) 40 mg IVP Q12 [facility] Last Admin: 03/29/18 09:55 Dose: 40 mg Montelukast Sodium (Singulair) 10 mg PO [facility] Last Admin: 03/28/18 22:01 Dose: 10 mg Mupirocin (Bactroban 2% Nasal) 0.25 gm LINA BID [facility] Last Admin: 03/29/18 09:55 Dose: 0.25 gm Oxycodone/Acetaminophen (Percocet 5/325 Mg Tab) 1 tab PO Q6H PRN PRN Reason: Pain, severe (8-10) Stop: 03/30/18 13:32 Last Admin: 03/29/18 10:11 Dose: 1 tab Pantoprazole Sodium (Protonix Ec Tab) 40 mg PO DAILY [facility] Last Admin: 03/29/18 09:55 Dose: 40 mg Quetiapine Fumarate (Seroquel Xr) 400 mg PO Q12 [facility] Last Admin: 03/29/18 09:56 Dose: 400 mg Sertraline HCl (Zoloft) 100 mg PO BID [facility] Last Admin: 03/29/18 09:56 Dose: 100 mg Trazodone HCl (Desyrel) 150 mg PO [facility] Last Admin: 03/28/18 22:00 Dose: 150 mg - Labs Labs: 03/25/18 10:57 03/25/18 06:05 Assessment and Plan (1) COPD exacerbation Status: Acute (2) Pneumonia Status: Acute
--- NOTE | 2018-03-29 18:20 | PN ---
DATE: 03/29/2018 SUBJECTIVE: The patient is feeling better, less cough, less shortness of breath. Here for ENT possibility of tracheostomy dysfunction. PHYSICAL EXAMINATION: VITAL SIGNS: Blood pressure 107/61, pulse 70, respiratory rate 20, temperature 98.4. LUNGS: Decreased air entry. Positive rhonchi. CARDIOVASCULAR SYSTEM: S1, S2, regular. ABDOMEN: Soft. ASSESSMENT: 1. Pneumonia. 2. Tracheostomy, rule out tracheostomy malfunction. 3. Diabetes. 4. Hypertension. PLAN: ENT consult. Follow up with ID for duration of antibiotics. Ad Khan MD
--- NOTE | 2018-03-29 18:41 | CP.PCM.PN ---
Subjective - Date & Time of Evaluation Date of Evaluation: 03/29/18 Time of Evaluation: 18:41 - Subjective Subjective: AFEBRILE, C/O PAIN THROAT. WANTS PAIN MEDS IV. SEEN BY ENT. PER DISCUSSION WITH DR. BRADEN ENT. PAIN MAINLY MUSCULOSKELETAL. PULMONARY FOLLOW-UP NOTED. REPEAT SPUTUM-+VE pROTEUS MIRABILIS ? COLONIZATION. ON iv ANTIBIOTICS. Objective - Vital Signs/Intake and Output Vital Signs (last 24 hours): Temp Pulse Resp BP Pulse Ox 97.7 F 69 20 149/91 H 99 03/29/18 16:00 03/29/18 16:00 03/29/18 16:00 03/29/18 16:00 03/29/18 16:00 Intake and Output: 03/29/18 03/29/18 06:59 18:59 Intake Total 700 700 Balance 700 700 - Medications Medications: Current Medications Acetaminophen (Tylenol 325mg Tab) 650 mg PO Q6 PRN PRN Reason: Fever >100.4 F Last Admin: 03/24/18 11:42 Dose: 650 mg Acetaminophen (Tylenol 325mg Tab) 650 mg PO Q6H PRN PRN Reason: Pain, Mild (1-3) Last Admin: 03/26/18 18:06 Dose: 650 mg Albuterol/Ipratropium (Duoneb 3 Mg/0.5 Mg (3 Ml) Ud) 3 ml INH RQ6 [facility] Last Admin: 03/29/18 13:18 Dose: 3 ml Gabapentin (Neurontin) 800 mg PO TID [facility] Last Admin: 03/29/18 18:30 Dose: 800 mg Guaifenesin (Mucinex La) 600 mg PO TID [facility] Last Admin: 03/29/18 18:29 Dose: 600 mg Meropenem 1 gm/ Sodium (Chloride) 100 mls @ 100 mls/hr IVPB Q8H [facility]; Protocol Last Admin: 03/29/18 13:02 Dose: 100 mls/hr Insulin Glargine (Lantus) 17 unit SC HS [facility] Last Admin: 03/28/18 21:59 Dose: 17 units Insulin Human Regular (Novolin R) 0 unit SC ACHS [facility]; Protocol Last Admin: 03/29/18 17:10 Dose: 8 units Lorazepam (Ativan) 1 mg IVP Q4H PRN PRN Reason: Anxiety Last Admin: 03/25/18 22:22 Dose: 1 mg Lorazepam (Ativan) 2 mg PO Q12H PRN PRN Reason: Anxiety Last Admin: 03/26/18 22:16 Dose: 2 mg Magnesium Hydroxide (Milk Of Magnesia) 30 ml PO DAILY PRN PRN Reason: Constipation Methylprednisolone (Solu-Medrol) 40 mg IVP Q12 [facility] Last Admin: 03/29/18 09:55 Dose: 40 mg Montelukast Sodium (Singulair) 10 mg PO [facility] Last Admin: 03/28/18 22:01 Dose: 10 mg Mupirocin (Bactroban 2% Nasal) 0.25 gm LINA BID [facility] Last Admin: 03/29/18 18:29 Dose: 0.25 gm Oxycodone/Acetaminophen (Percocet 5/325 Mg Tab) 1 tab PO Q6H PRN PRN Reason: Pain, severe (8-10) Stop: 03/30/18 13:32 Last Admin: 03/29/18 16:11 Dose: 1 tab Pantoprazole Sodium (Protonix Ec Tab) 40 mg PO DAILY [facility] Last Admin: 03/29/18 09:55 Dose: 40 mg Quetiapine Fumarate (Seroquel Xr) 400 mg PO Q12 [facility] Last Admin: 03/29/18 09:56 Dose: 400 mg Sertraline HCl (Zoloft) 100 mg PO BID [facility] Last Admin: 03/29/18 18:30 Dose: 100 mg Trazodone HCl (Desyrel) 150 mg PO [facility] Last Admin: 03/28/18 22:00 Dose: 150 mg - Labs Labs: 03/25/18 10:57 03/25/18 06:05 - Constitutional Appears: No Acute Distress - Head Exam Head Exam: NORMAL INSPECTION - Eye Exam Eye Exam: EOMI, PERRL - ENT Exam ENT Exam: Mucous Membranes Moist, Normal Oropharynx - Neck Exam Neck Exam: Normal Inspection - Respiratory Exam Respiratory Exam: Clear to Ausculation Bilateral (OCCASIONAL RHONCHI.), NORMAL BREATHING PATTERN. absent: Accessory Muscle Use, Respiratory Distress - Cardiovascular Exam Cardiovascular Exam: REGULAR RHYTHM, +S1, +S2 - GI/Abdominal Exam GI & Abdominal Exam: Soft, Normal Bowel Sounds - Extremities Exam Extremities Exam: absent: Calf Tenderness, Pedal Edema - Neurological Exam Neurological Exam: Alert, Awake, Normal Gait, Oriented x3 - Psychiatric Exam Psychiatric exam: Normal Mood - Skin Skin Exam: Normal Color, Warm Assessment and Plan (1) Pneumonia Status: Acute (2) Respiratory distress Status: Acute (3) COPD exacerbation Status: Acute (4) Morbid obesity Status: Chronic (5) Diabetes mellitus Status: Chronic - Assessment and Plan (Free Text) Plan: CONTINUE IV MERREM 1GM IVPB Q 8HRLY 03/25/18 X I MORE DAYS. MUPIRICON OINTMENT 5ML BID NARIS X 7 DAYS. F/U CXR.03/26 NOTED- BETTER AERATION OF LUNGS COMPARED TO PRIOR PATIENT FOR DISCHARGE IN A.M. ( SUNDAY ) DISCUSSED WITH PIPELINE SYSTEMS OPERATOR. MR. CORREIA. PULMONARY TOILET PER PULMONARY
[2018-03-29] MEDS: (Lantus) Insulin Glargine, Recombinant SC SCH (22:00)
--- NOTE | 2018-03-30 00:17 | OP ---
PROCEDURE DATE: 03/29/2018 PREPROCEDURE DIAGNOSIS: Neck pain and dysphagia. POSTPROCEDURE DIAGNOSIS: Neck pain and dysphagia. PROCEDURE: Flexible laryngoscopy. SIGNIFICANT FINDINGS: No masses, no lesions, no tumor nodes. DESCRIPTION OF PROCEDURE: The patient was placed in a seated position. Flexible laryngoscope was inserted into the nasal cavity, passed to the nasopharynx, oropharynx, and hypopharynx. The pharyngeal tillman, base of tongue, vallecula, AE folds, false cord, epiglottis, arytenoids, piriform sinuses were brought into view. No masses or lesions were noted. No erythema or edema was noted. The scope was removed. The patient tolerated the procedure well. The patient's pain is most likely musculoskeletal. Jake Keller MD
[2018-03-30] MEDS: Albuterol-Ipratrop 3 mg / 0.5 (3 ml) UD INH SCH ×3 (01:36→13:15)
[2018-03-30] MEDS ORDERED: (Novolin R) Insulin Human Regular 100 units/ml vial SC STA (02:47)
[2018-03-30] MEDS: Meropenem 1 GM in Sodium Chloride 0.9% 100 ML IVPB SCH ×2 (05:40→12:22)
[2018-03-30 06:43] LABS: BASO % 0.3 % (0.0-2.0); EOS % 0.2 % (0.0-4.0); HEMOGLOBIN 11.1 g/dL (11.0-16.0); LYMPH % 8.6 % (20.0-40.0); MEAN CELL VOLUME 80.8 fL (81.0-99.0); MEAN CORPUSCULAR HEMOGLOBIN 25.8 pg (27.0-31.0); MEAN CORPUSCULAR HGB CONC 31.9 g/dL (33.0-37.0); MEAN PLATELET VOLUME 8.7 fL (7.2-11.7); MONO # 0.5 K/uL (0.0-0.8); MONO % 4.4 % (0.0-10.0); NEUT # 9.7 K/uL (1.8-7.0); NEUT % 86.5 % (50.0-75.0); PLATELET COUNT 114 K/uL (130-400); RED CELL DISTRIBUTION WIDTH 15.5 % (11.5-14.5); WHITE BLOOD COUNT 11.2 K/uL (4.8-10.8)
[2018-03-30 07:01] LABS: BLOOD UREA NITROGEN 26 mg/dL (7-17); CALCIUM 8.9 mg/dl (8.6-10.4); GFR NON-AFRICAN AMERICAN > 60
[2018-03-30] MEDS: (Novolin R) Insulin Human Regular 100 units/ml vial SC SCH ×2 (07:37→12:21)
[2018-03-30] MEDS: Morphine 4 MG/ML VIAL IVP PRN ×2 (08:07)
[2018-03-30 08:37] VITALS: BP 151/79; PULSE 73; TEMP 97.7; O2SAT 100
[2018-03-30] MEDS: Pantoprazole 40 mg EC Tab PO SCH (09:29)
[2018-03-30] MEDS: guaiFENesin 600 mg ER Tab PO SCH ×2 (09:29→13:34)
[2018-03-30] MEDS: MethylPREDNISolone 40 mg Vial IVP SCH (09:29)
[2018-03-30] MEDS: Mupirocin 2% Ointment (NASAL) NAS SCH (09:29)
[2018-03-30] MEDS: QUEtiapine 200 mg XR Tab PO SCH (09:30)
[2018-03-30 10:18] LABS: ANISOCYTOSIS SLIGHT; LYMPHOCYTE 9 % (20-40); MONOCYTE 4 % (0-10); NEUTROPHIL 87 % (50-75); PLATELET ESTIMATE SLIGHTLY DECREASED (NORMAL); TOTAL CELLS COUNTED 100
--- NOTE | 2018-03-30 13:05 | CP.PCM.PN ---
Subjective - Date & Time of Evaluation Date of Evaluation: 03/30/18 Time of Evaluation: 13:00 Objective - Vital Signs/Intake and Output Vital Signs (last 24 hours): Temp Pulse Resp BP Pulse Ox 97.7 F 73 20 151/79 H 100 03/30/18 08:35 03/30/18 08:35 03/30/18 08:35 03/30/18 08:35 03/30/18 08:35 Intake and Output: 03/30/18 03/30/18 06:59 18:59 Intake Total 1100 Balance 1100 - Medications Medications: Current Medications Acetaminophen (Tylenol 325mg Tab) 650 mg PO Q6 PRN PRN Reason: Fever >100.4 F Last Admin: 03/24/18 11:42 Dose: 650 mg Acetaminophen (Tylenol 325mg Tab) 650 mg PO Q6H PRN PRN Reason: Pain, Mild (1-3) Last Admin: 03/26/18 18:06 Dose: 650 mg Albuterol/Ipratropium (Duoneb 3 Mg/0.5 Mg (3 Ml) Ud) 3 ml INH RQ6 [facility] Last Admin: 03/30/18 07:44 Dose: 3 ml Gabapentin (Neurontin) 800 mg PO TID [facility] Last Admin: 03/30/18 09:30 Dose: 800 mg Guaifenesin (Mucinex La) 600 mg PO TID [facility] Last Admin: 03/30/18 09:29 Dose: 600 mg Meropenem 1 gm/ Sodium (Chloride) 100 mls @ 100 mls/hr IVPB Q8H [facility]; Protocol Last Admin: 03/30/18 12:22 Dose: 100 mls/hr Insulin Glargine (Lantus) 17 unit SC HS [facility] Last Admin: 03/29/18 22:00 Dose: 17 units Insulin Human Regular (Novolin R) 0 unit SC ACHS [facility]; Protocol Last Admin: 03/30/18 12:21 Dose: 6 units Lorazepam (Ativan) 1 mg IVP Q4H PRN PRN Reason: Anxiety Last Admin: 03/30/18 02:56 Dose: 1 mg Lorazepam (Ativan) 2 mg PO Q12H PRN PRN Reason: Anxiety Last Admin: 03/29/18 22:07 Dose: 2 mg Magnesium Hydroxide (Milk Of Magnesia) 30 ml PO DAILY PRN PRN Reason: Constipation Methylprednisolone (Solu-Medrol) 40 mg IVP Q12 [facility] Last Admin: 03/30/18 09:29 Dose: 40 mg Montelukast Sodium (Singulair) 10 mg PO HS [facility] Last Admin: 03/29/18 22:02 Dose: 10 mg Mupirocin (Bactroban 2% Nasal) 0.25 gm LINA BID [facility] Last Admin: 03/30/18 09:29 Dose: 0.25 gm Oxycodone/Acetaminophen (Percocet 5/325 Mg Tab) 1 tab PO Q6H PRN PRN Reason: Pain, severe (8-10) Stop: 03/30/18 13:32 Last Admin: 03/29/18 16:11 Dose: 1 tab Pantoprazole Sodium (Protonix Ec Tab) 40 mg PO DAILY [facility] Last Admin: 03/30/18 09:29 Dose: 40 mg Quetiapine Fumarate (Seroquel Xr) 400 mg PO Q12 [facility] Last Admin: 03/30/18 09:30 Dose: 400 mg Sertraline HCl (Zoloft) 100 mg PO BID [facility] Last Admin: 03/30/18 09:30 Dose: 100 mg Trazodone HCl (Desyrel) 150 mg PO HS [facility] Last Admin: 03/29/18 22:04 Dose: 150 mg - Labs Labs: 03/30/18 06:36 03/30/18 06:36
--- NOTE | 2018-03-31 22:25 | CP.PCM.DIS ---
Provider - Provider Date of Admission: 03/20/18 16:05 Attending physician: Ad Khan MD Consults: 03/20/18 18:29 Infectious Disease Consult Routine Comment: Consulting Provider: Wayne Celis Consulting Physician: Wayne Celis Reason for Consult: Bibasilar infiltrates, PNA 03/24/18 21:20 Pulmonology Consult Routine Comment: Consulting Provider: Rodo Rosado Consulting Physician: Rodo Rosado Reason for Consult: pna 03/28/18 21:14 Otolaryngology Consult Routine Consulting Provider: Jake Keller Consulting Physician: Jake Keller Reason for Consult: tarchoestomy site pain Time Spent in preparation of Discharge (in minutes): 30 Hospital Course - Lab Results Lab Results: Micro Results 03/26/18 17:37 Trachasp Gram Stain - Final 03/26/18 17:37 Trachasp Sputum Culture - Final Proteus Mirabilis 03/27/18 01:13 Nose MRSA Culture - Final MRSA NOT DETECTED 03/21/18 05:30 Blood Blood Culture - Final NO GROWTH AFTER 5 DAYS 03/21/18 05:30 Blood Gram Stain - Final TEST NOT PERFORMED 03/20/18 21:03 Blood Blood Culture - Final NO GROWTH AFTER 5 DAYS 03/20/18 21:03 Blood Gram Stain - Final TEST NOT PERFORMED 03/20/18 21:03 Trachasp Gram Stain - Final 03/20/18 21:03 Trachasp Sputum Culture - Final Proteus Mirabilis 03/20/18 21:03 Naris MRSA Culture (Admit) - Final MRSA DETECTED Most Recent Lab Values WBC 11.2 K/uL (4.8-10.8) H 03/30/18 06:36 RBC 4.30 Mil/uL (3.80-5.20) 03/30/18 06:36 Hgb 11.1 g/dL (11.0-16.0) 03/30/18 06:36 Hct 34.7 % (34.0-47.0) 03/30/18 06:36 MCV 80.8 fL (81.0-99.0) L 03/30/18 06:36 MCH 25.8 pg (27.0-31.0) L 03/30/18 06:36 MCHC 31.9 g/dL (33.0-37.0) L 03/30/18 06:36 RDW 15.5 % (11.5-14.5) H 03/30/18 06:36 Plt Count 114 K/uL (130-400) L D 03/30/18 06:36 MPV 8.7 fL (7.2-11.7) 03/30/18 06:36 Neut % (Auto) 86.5 % (50.0-75.0) H 03/30/18 06:36 Lymph % (Auto) 8.6 % (20.0-40.0) L 03/30/18 06:36 [place] % (Auto) 4.4 % (0.0-10.0) 03/30/18 06:36 Eos % (Auto) 0.2 % (0.0-4.0) 03/30/18 06:36 Baso % (Auto) 0.3 % (0.0-2.0) 03/30/18 06:36 Neut # (Auto) 9.7 K/uL (1.8-7.0) H 03/30/18 06:36 Lymph # (Auto) 1.0 K/uL (1.0-4.3) 03/30/18 06:36 [place] # (Auto) 0.5 K/uL (0.0-0.8) 03/30/18 06:36 Eos # (Auto) 0.0 K/uL (0.0-0.7) 03/30/18 06:36 Baso # (Auto) 0.0 K/uL (0.0-0.2) 03/30/18 06:36 Neutrophils % (Manual) 87 % (50-75) H 03/30/18 06:36 Band Neutrophils % 1 % (0-2) 03/24/18 06:10 Lymphocytes % (Manual) 9 % (20-40) L 03/30/18 06:36 Monocytes % (Manual) 4 % (0-10) 03/30/18 06:36 Differential Comment 03/20/18 16:14 Toxic Granulation Present 03/23/18 06:07 Platelet Estimate Slightly decreased (NORMAL) L 03/30/18 06:36 Large Platelets Present 03/24/18 06:10 RBC Morphology Normal 03/21/18 05:42 Polychromasia Slight 03/24/18 06:10 Hypochromasia (manual) Slight 03/24/18 06:10 Poikilocytosis (manual Slight 03/24/18 06:10 Anisocytosis (manual) Slight 03/30/18 06:36 Microcytosis (manual) Slight 03/23/18 06:07 Tear Drop Cells Slight 03/24/18 06:10 Ovalocytes Slight 03/24/18 06:10 Sodium 134 mmol/L (132-148) 03/30/18 06:36 Potassium 4.8 mmol/L (3.6-5.2) 03/30/18 06:36 Chloride 96 mmol/L (98-107) L 03/30/18 06:36 Carbon Dioxide 33 mmol/L (22-30) H 03/30/18 06:36 Anion Gap 10 (10-20) 03/30/18 06:36 BUN 26 mg/dL (7-17) H 03/30/18 06:36 Creatinine 0.9 mg/dL (0.7-1.2) 03/30/18 06:36 Est GFR ( Amer) > 60 03/30/18 06:36 Est GFR (Non-Af Amer) > 60 03/30/18 06:36 POC Glucose (mg/dL) 314 mg/dL (65-110) H 03/30/18 12:16 Random Glucose 411 mg/dL (65-105) H* D 03/30/18 06:36 Calcium 8.9 mg/dl (8.6-10.4) 03/30/18 06:36 Phosphorus 3.7 mg/dL (2.5-4.5) 03/25/18 06:05 Magnesium 1.8 mg/dL (1.6-2.3) 03/25/18 06:05 Total Bilirubin 0.6 mg/dL (0.2-1.3) 03/25/18 06:05 AST 26 U/L (14-36) 03/25/18 06:05 ALT < 6 U/L (9-52) L D 03/25/18 06:05 Alkaline Phosphatase 132 U/L (38-126) H 03/25/18 06:05 Total Protein 7.8 g/dL (6.3-8.3) 03/25/18 06:05 Albumin 4.0 g/dL (3.5-5.0) 03/25/18 06:05 Globulin 3.8 gm/dL (2.2-3.9) 03/25/18 06:05 Albumin/Globulin Ratio 1.1 (1.0-2.1) 03/25/18 06:05 Influenza Typ A,B (EIA) Negative for flu a/b (NEGATIVE) 03/20/18 21:03 Ur L.pneumophila Ag Negative (NEGATIVE) 03/20/18 21:03 Mycoplasma pneumon IgM Negative (NEGATIVE) 03/20/18 21:03 Discharge Exam - Head Exam Head Exam: NORMAL INSPECTION Discharge Plan - Discharge Medications Prescriptions: predniSONE [Prednisone] 20 mg PO DAILY #16 tab - Follow Up Plan Condition: FAIR Disposition: HOME/ ROUTINE Instructions: COPD Including Emphysema (DC), High Blood Pressure (DC), Hyperglycemia, Adult (DC), Exacerbation of COPD (DC), Prednisone Additional Instructions: Please f/u with Dr. khan office in 1 week Please continue oxygen via trach collar Please resume all home medications Please pick pulling machine operator [facility]
--- NOTE | 2018-04-01 12:18 | DS ---
DISCHARGE DIAGNOSES: 1. Pneumonia due to tracheostomy. 2. Tracheostomy with complications. 3. Type 2 diabetes, poorly controlled. 4. Hypertension. 5. Exacerbation of bronchial asthma. HISTORY OF PRESENT ILLNESS: This is a 62-year-old female with history of morbid obesity, type 2 , hypertension, hyperlipidemia and major depression. The patient has tracheostomy. The patient has history of frequent infections, has recurrent hospitalizations. This time again, she was found to have bilateral lower lobe infiltrates along with tracheostomy, and the patient underwent evaluation with Pulmonary, started on antibiotics as per ID recommendation and antibiotics were finished. The patient is afebrile. She is being discharged with outpatient followup. Condition upon discharge is stable. PHYSICAL EXAMINATION: VITAL SIGNS: Blood pressure 151/79, pulse 73, respiratory rate 20, temperature 97.7. LUNGS: Decreased air entry. Positive rhonchi. CVS: S1, S2. Regular. ABDOMEN: Soft, nontender. Bowel sounds are positive. LABORATORY DATA: WBC 11.2, hemoglobin 11.1, hematocrit 34.7, platelet 114. Sodium 134, potassium 4.8, chloride 98, bicarb 33, BUN 26, creatinine 0.9, glucose . CONDITION UPON DISCHARGE: Stable. The patient will be followed up by me as outpatient. Ad Khan MD
== END 2018-03-30 15:50 | disposition home or self-care (01) | DRG 79 ==
LOC: C.ER 14:40 → C.9I 16:05 → C.3T 03-27 00:46
PROVIDERS: ADMIT Internal Medicine; ATTEND Internal Medicine
PROC: 0CJS8ZZ Inspection of Larynx, Via Natural or Artificial Opening Endoscopic (ICD-10-PCS; principal; 2018-03-29)
DX: J15.6 Pneumonia due to other Gram-negative bacteria (principal); E11.65 Type 2 diabetes mellitus with hyperglycemia; I50.9 Heart failure, unspecified; I11.0 Hypertensive heart disease with heart failure; J43.9 Emphysema, unspecified; J45.901 Unspecified asthma with (acute) exacerbation; J95.00 Unspecified tracheostomy complication; Y83.8 Other surgical procedures as the cause of abnormal reaction of the patient, or of later complication, without mention of misadventure at the time of the procedure; E66.01 Morbid (severe) obesity due to excess calories; E78.5 Hyperlipidemia, unspecified; F31.9 Bipolar disorder, unspecified; F41.9 Anxiety disorder, unspecified; G89.29 Other chronic pain; Z16.24 Resistance to multiple antibiotics; Z78.9 Other specified health status; Z90.49 Acquired absence of other specified parts of digestive tract; T38.0X5A Adverse effect of glucocorticoids and synthetic analogues, initial encounter; M51.9 Unspecified thoracic, thoracolumbar and lumbosacral intervertebral disc disorder; Y83.3 Surgical operation with formation of external stoma as the cause of abnormal reaction of the patient, or of later complication, without mention of misadventure at the time of the procedure; Z68.41 Body mass index [BMI] 40.0-44.9, adult

== ENCOUNTER 2018-04-05 22:57 | Inpatient (IN) | payer OTHER ==
[2018-04-05 22:57] VITALS: BMI 47.0
--- NOTE | 2018-04-06 00:14 | C.PDOC ---
History Of Present Illness 62 year old female presents to the ED c/o congestion and SOB. Patient has had numerous intubations in the past. Patient is s/p tracheostomy. Patient denies fever, chills, nausea, vomit, CP, palpitations, weakness, numbness. Time Seen by Provider: 04/06/18 00:14 Chief Complaint (Nursing): Shortness Of Breath History Per: Patient History/Exam Limitations: no limitations Onset/Duration Of Symptoms: Days Current Symptoms Are (Timing): Still Present Initiating Event: Upper Respiratory Illness Quality: "Pain" Current Respiratory Medications: See Home Med List Recent travel outside of the [place]: No Additional History Per: Patient Past Medical History Reviewed: Historical Data, Nursing Documentation, Vital Signs Vital Signs: Last Vital Signs Temp 99.5 F 04/05/18 23:08 Pulse 103 H 04/05/18 23:08 Resp 24 04/05/18 23:08 BP 152/93 H 04/05/18 23:08 Pulse Ox 99 04/05/18 23:08 - Medical History PMH: Anxiety, Asthma, Bipolar Disorder, Bronchitis, CHF, COPD, Depression, Emphysema, Gall Bladder Disease, HTN, Pneumonia, Seizures, Sleep Apnea Denies: Arthritis, Deep Vein Thrombosis, HIV, Hypercholesterolemia, Hypothyroidism, Chronic Kidney Disease, Rheumatoid Arthritis, Sexually Transmitted Disease Surgical History: Appendectomy, Cholecystectomy Denies: Pacemaker - [facility] Procedures ASSISTANCE WITH RESPIRATORY VENTILATION, <24 HRS, CPAP (03/14/16) CENTRAL VENOUS CATHETER PLACEMENT WITH GUIDANCE (10/24/14) CHANGE TRACHEOSTOMY DEVICE IN TRACHEA, EXTERNAL APPROACH (07/03/17) CONTINUOUS INVASIVE MECHANICAL VENTILATION <96 CONSEC HRS (03/07/14) DRAINAGE OF LUNG LINGULA, ENDO, DIAGN (11/30/17) ENTERAL INFUSION OF CONCENTRATED NUT. SUBSTANCES (09/17/12) INSERT ENDOTRACHEAL TUBE (09/17/12) INSERTION OF ENDOTRACHEAL AIRWAY INTO TRACHEA, VIA OPENING (06/12/17) INSERTION OF INFUSION DEV INTO SUP VENA CAVA, PERC APPROACH (11/13/17) INSERTION OF INFUSION DEVICE INTO UPPER VEIN, PERC APPROACH (10/04/17) INSPECTION OF LARYNX, ENDO (03/20/18) INTRODUCE OF OTH THERAP SUBST INTO RESP TRACT, VIA OPENING (05/03/15) INTRODUCTION OF NUTRITIONAL INTO UP GI, VIA OPENING (06/12/17) NEBULIZER THERAPY (09/17/12) REMOVAL OF TRACHEOSTOMY DEVICE FROM TRACHEA, PHYSIOTHERAPIST'S ASSISTANT APPROACH (06/12/17) RESPIRATORY VENTILATION, 24-96 CONSECUTIVE HOURS (11/13/17) RESPIRATORY VENTILATION, GREATER THAN 96 CONSECUTIVE HOURS (02/27/17) Family History: States: No Known Family Hx - Social History Hx Tobacco Use: No Hx Alcohol Use: No Hx Substance Use: No - Immunization History Hx Tetanus Toxoid Vaccination: No Hx Influenza Vaccination: No Hx Pneumococcal Vaccination: No Review Of Systems Constitutional: Negative for: Fever, Chills ENT: Positive for: Nose Congestion Cardiovascular: Negative for: Chest Pain, Palpitations Respiratory: Positive for: Shortness of Breath, Sputum. Negative for: Cough, Wheezing Gastrointestinal: Negative for: Nausea, Vomiting, Abdominal Pain Skin: Negative for: Rash Neurological: Negative for: Weakness, Numbness, Headache Physical Exam - Physical Exam Appears: Non-toxic, In Acute Distress, Other (morbidly obese) Skin: Warm, Dry Head: Normacephalic Eye(s): bilateral: Normal Inspection Oral Mucosa: Moist Neck: Supple, Other (trach in place with thick sputum around the hole) Chest: Symmetrical Cardiovascular: Rhythm Regular Respiratory: Decreased Breath Sounds, No Rales, Rhonchi (scattered), Wheezing (few) Gastrointestinal/Abdominal: Soft, No Tenderness, No Guarding, No Rebound, Other (morbidly obese) Back: Normal Inspection Extremity: No Tenderness Extremity: Bilateral: Atraumatic, Normal Color And Temperature, Normal ROM Neurological/Psych: Oriented x3, Normal Speech, Normal Cognition Gait: Unable To Assess ED Course And Treatment - Laboratory Results Result Diagrams: 04/06/18 00:44 04/06/18 00:44 ECG: Interpreted By Me, Viewed By Me ECG Rhythm: Sinus Rhythm (106), Nonspecific Changes O2 Sat by Pulse Oximetry: 99 Pulse Ox Interpretation: Normal - Radiology CXR: Interpreted by Me, Viewed By Me CXR Interpretation: Yes: Infiltrates (? rll), Other (trach in place, somewhat improved from 03/26/18). No: Fracture, Pnemothorax Progress Note: Plan: - ABG. - EKG. - Labs. - CXR. - Duoneb. - Blood culture. Placed on pressure support- vent. 1:[address] mcmahan(icu) . she will come and see the pt in the ed Critical Care Time - Critical Care Note Total Time (in mins): 30 Documented critical care: time excludes all time spent performing seperately billable procedures. Disposition Discussed With Dr.: Ad Khan Comment: accepted the pt on his service and took over the care at 2:38 AM Doctor Will See Patient In The: ED Counseled Patient/Family Regarding: Studies Performed, Diagnosis, Need For Followup - Disposition Disposition: HOSPITALIZED Disposition Time: 00:14 Condition: CRITICAL Forms: [facility] (Guyanese) - Clinical Impression Clinical Impression: COPD exacerbation, Tracheostomy dependence, Respiratory distress - Scribe Statement The provider has reviewed the documentation as recorded by the Scribe Supa Arias All medical record entries made by the Scribe were at my direction and personally dictated by me. I have reviewed the chart and agree that the record accurately reflects my personal performance of the history, physical exam, medical decision making, and the department course for this patient. I have also personally directed, reviewed, and agree with the discharge instructions and disposition. Decision To Admit - Pt Status Changed To: Hospital Disposition Of: Inpatient - Admit Certification Admit to Inpatient:: After my assessment, the patient will require hospitalization for at least two midnights. This is because of the severity of symptoms shown, intensity of services needed, and/or the medical risk in this patient being treated as an outpatient. - InPatient: Physician Admission Certification: I certify that this patient requires 2 or more midnights of care for the following reason:: After my assessment, the patient will require hospitalization for at least two midnights. This is because of the severity of symptoms shown, intensity of services needed, and/or the medical risk in this patient being treated as an outpatient. - . Bed Request Type: ICU Admitting Physician: Ad Khan Patient Diagnosis: COPD exacerbation, Tracheostomy dependence, Respiratory distress
[2018-04-06] MEDS: Albuterol-Ipratrop 3 mg / 0.5 (3 ml) UD IH SCH ×3 (00:30→01:00)
[2018-04-06 00:47] LABS: BASO # 0.2 K/uL (0.0-0.2); BASO % 0.8 % (0.0-2.0); EOS # 0.2 K/uL (0.0-0.7); EOS % 0.6 % (0.0-4.0); HEMOGLOBIN 13.1 g/dL (11.0-16.0); LYMPH # 2.6 K/uL (1.0-4.3); LYMPH % 10.8 % (20.0-40.0); MEAN CELL VOLUME 79.8 fL (81.0-99.0); MEAN CORPUSCULAR HEMOGLOBIN 26.2 pg (27.0-31.0); MEAN CORPUSCULAR HGB CONC 32.8 g/dL (33.0-37.0); MEAN PLATELET VOLUME 8.4 fL (7.2-11.7); MONO # 1.5 K/uL (0.0-0.8); MONO % 6.1 % (0.0-10.0); NEUT # 19.8 K/uL (1.8-7.0); NEUT % 81.7 % (50.0-75.0); PLATELET COUNT 153 K/uL (130-400); RBC 4.99 Mil/uL (3.80-5.20); RED CELL DISTRIBUTION WIDTH 15.7 % (11.5-14.5)
[2018-04-06 00:49] LABS: ARTERIAL BLOOD GAS HCO3 27.5 mmol/L (21-28); ARTERIAL BLOOD GAS O2 SAT 98.7 % (95-98); ARTERIAL BLOOD GAS PCO2 48 mm/Hg (35-45); ARTERIAL BLOOD GAS PH 7.39 (7.35-7.45); ARTERIAL BLOOD GAS PO2 88 mm/Hg (80-100); ARTERIAL BLOOD GAS TCO2 30.6 mmol/L (22-28)
[2018-04-06 00:49] LABS: WHITE BLOOD COUNT 24.2 K/uL (4.8-10.8)
[2018-04-06] MEDS ORDERED: Moxifloxacin IV 400mg/250ml NS 400 MG/250 ML BAG IVPB ONE ×2 (00:52→01:37)
[2018-04-06 00:57] LABS: PROTHROMBIN TIME 10.9 SECONDS (9.7-12.2)
[2018-04-06 01:08] LABS: ALBUMIN 4.5 g/dL (3.5-5.0); ALT/SGPT 10 U/L (9-52); AST/SGOT 43 U/L (14-36); BLOOD UREA NITROGEN 17 mg/dL (7-17); CALCIUM 9.5 mg/dl (8.6-10.4); GFR NON-AFRICAN AMERICAN > 60
[2018-04-06] MEDS ORDERED: Albuterol 0.083% Inhal Sol (2.5 mg/3 mL) UD ONE ×2 (01:11→01:37)
[2018-04-06 01:27] LABS: LYMPHOCYTE 4 % (20-40); MONOCYTE 5 % (0-10); NEUTROPHIL 89 % (50-75); PLATELET ESTIMATE NORMAL (NORMAL); REACTIVE LYMPHOCYTES 2 % (0-0); TOTAL CELLS COUNTED 100
--- NOTE | 2018-04-06 02:19 | CP.PCM.CON ---
History of Present Illness - History of Present Illness History of Present Illness: 62 year old female with h/o COPD,tracheostomy,CHF,HTN,DM,Sleep apnea syndrome,siezure disorder,anxiety ,depression presents to the ED c/o congestion , SOB and fever at home. Patient has had numerous intubations in the past. Patient is s/p tracheostomy. Patient denies nausea, vomit, CP, palpitations. She was discharged from [facility] 03/30/18 Review of Systems - Review of Systems Systems not reviewed;Unavailable: Respiratory Distress - Constitutional Constitutional: Fever. absent: Chills - EENT Eyes: absent: Blurred Vision, Pain Ears: absent: Ear Discharge, Ear Pain Nose/Mouth/Throat: Nasal Congestion. absent: Sore Throat - Cardiovascular Cardiovascular: Dyspnea. absent: Chest Pain, Leg Edema - Respiratory Respiratory: Cough, Dyspnea. absent: Hemoptysis - Gastrointestinal Gastrointestinal: absent: Abdominal Pain, Nausea, Vomiting - Genitourinary Genitourinary: absent: Dysuria - Musculoskeletal Musculoskeletal: Back Pain - Neurological Neurological: absent: Focal Weakness - Endocrine Endocrine: absent: Excessive Sweating, Palpitations Past Patient History - Infectious Disease Hx of Infectious Diseases: None - Tetanus Immunizations Tetanus Immunization: Unknown - Past Medical History & Family History Past Medical History?: Yes - Past Social History Smoking Status: Unknown If Ever Smoked - CARDIAC Hx Congestive Heart Failure: Yes Hx Hypercholesterolemia: No Hx Hypertension: Yes Hx Pacemaker: No - PULMONARY Hx Asthma: Yes Hx Bronchitis: Yes Hx Chronic Obstructive Pulmonary Disease (COPD): Yes Hx Emphysema: Yes Hx Pneumonia: Yes Hx Sleep Apnea: Yes - NEUROLOGICAL Hx Seizures: Yes - HEENT Hx HEENT Problems: Yes Hx Cataracts: Yes - RENAL Hx Chronic Kidney Disease: No - ENDOCRINE/METABOLIC Hx Hypothyroidism: No - HEMATOLOGICAL/ONCOLOGICAL Hx Human Immunodeficiency Virus (HIV): No - INTEGUMENTARY Hx Dermatological Problems: No - MUSCULOSKELETAL/RHEUMATOLOGICAL Hx Arthritis: No Hx Rheumatoid Arthritis: No - GASTROINTESTINAL Hx Gall Bladder Disease: Yes - GENITOURINARY/GYNECOLOGICAL Hx Sexually Transmitted Disorders: No - PSYCHIATRIC Hx Anxiety: Yes Hx Bipolar Disorder: Yes Hx Depression: Yes Hx Substance Use: No - SURGICAL HISTORY Hx Appendectomy: Yes Hx Cholecystectomy: Yes - ANESTHESIA Hx Anesthesia: Yes Hx Anesthesia Reactions: No Hx Malignant Hyperthermia: No Meds Allergies/Adverse Reactions: Allergies Allergy/AdvReac Type Severity Reaction Status Date / Time aspirin Allergy ANAPHYLAXIS Verified 04/05/18 23:11 ceftriaxone sodium Allergy ANAPHYLAXIS Verified 04/05/18 23:11 [From Rocephin] ibuprofen [From Motrin] Allergy ANAPHYLAXIS Verified 04/05/18 23:11 iodine Allergy ANAPHYLAXIS Verified 04/05/18 23:11 raspberry Allergy ANAPHYLAXIS Verified 04/05/18 23:11 Physical Exam - Constitutional Appears: In Acute Distress - Head Exam Head Exam: ATRAUMATIC, NORMAL INSPECTION, NORMOCEPHALIC - Eye Exam Eye Exam: EOMI, PERRL - ENT Exam ENT Exam: Mucous Membranes Moist - Neck Exam Neck exam: Positive for: Normal Inspection (Tracheostomy +) - Cardiovascular Exam Cardiovascular Exam: REGULAR RHYTHM - GI/Abdominal Exam GI & Abdominal Exam: Normal Bowel Sounds, Soft. absent: Tenderness - Neurological Exam Neurological exam: Alert, Oriented x3 - Psychiatric Exam Psychiatric exam: Anxious - Skin Skin Exam: Normal Color, Warm Results - Vital Signs Recent Vital Signs: Last Vital Signs Temp 98.6 F 04/06/18 01:30 Pulse 118 H 04/06/18 02:09 Resp 33 H 04/06/18 02:09 BP 119/91 H 04/06/18 02:09 Pulse Ox 95 04/06/18 02:09 - Labs Result Diagrams: 04/06/18 00:44 04/06/18 00:44 Labs: Laboratory Results - last 24 hr 04/06/18 04/06/18 04/06/18 00:44 00:44 00:44 WBC 24.2 H D RBC 4.99 Hgb 13.1 D Hct 39.8 MCV 79.8 L MCH 26.2 L MCHC 32.8 L RDW 15.7 H Plt Count 153 MPV 8.4 Neut % (Auto) 81.7 H Lymph % (Auto) 10.8 L [place] % (Auto) 6.1 Eos % (Auto) 0.6 Baso % (Auto) 0.8 Neut # (Auto) 19.8 H Lymph # (Auto) 2.6 [place] # (Auto) 1.5 H Eos # (Auto) 0.2 Baso # (Auto) 0.2 Neutrophils % (Manual) 89 H Lymphocytes % (Manual) 4 L Reactive Lymphs % 2 H Monocytes % (Manual) 5 Platelet Estimate Normal PT 10.9 INR 1.0 APTT 35 H Puncture Site pCO2 pO2 HCO3 ABG pH ABG Total CO2 ABG O2 Saturation ABG Base Excess Rob Test ABG Potassium A-a O2 Difference Respiratory Index Glucose Lactate FiO2 Sodium 139 Potassium 5.3 H Chloride 105 Carbon Dioxide 27 Anion Gap 12 BUN 17 Creatinine 0.7 Est GFR ( Amer) > 60 Est GFR (Non-Af Amer) > 60 Random Glucose 196 H D Calcium 9.5 Total Bilirubin 0.9 AST 43 H D ALT 10 Alkaline Phosphatase 138 H Total Protein 8.7 H Albumin 4.5 Globulin 4.3 H Albumin/Globulin Ratio 1.0 Arterial Blood Potassium 04/06/18 00:45 WBC RBC Hgb Hct MCV MCH MCHC RDW Plt Count MPV Neut % (Auto) Lymph % (Auto) [place] % (Auto) Eos % (Auto) Baso % (Auto) Neut # (Auto) Lymph # (Auto) [place] # (Auto) Eos # (Auto) Baso # (Auto) Neutrophils % (Manual) Lymphocytes % (Manual) Reactive Lymphs % Monocytes % (Manual) Platelet Estimate PT INR APTT Puncture Site Lb pCO2 48 H pO2 88 HCO3 27.5 ABG pH 7.39 ABG Total CO2 30.6 H ABG O2 Saturation 98.7 H ABG Base Excess 3.3 H Rob Test Na ABG Potassium 4.1 A-a O2 Difference 565.0 Respiratory Index 6.4 Glucose 199 H Lactate 1.0 FiO2 100.0 Sodium 141.0 Potassium Chloride 107.0 Carbon Dioxide Anion Gap BUN Creatinine Est GFR ( Amer) Est GFR (Non-Af Amer) Random Glucose Calcium Total Bilirubin AST ALT Alkaline Phosphatase Total Protein Albumin Globulin Albumin/Globulin Ratio Arterial Blood Potassium 4.1 - EKG Data EKG Interpreted by: Myself Assessment & Plan - Assessment and Plan (Free Text) Assessment: 1.Respiratory failure/exacerbation of COPD / Tracheobronchitis / r/o Pneumonia Bronchodilators,steroids,antibiotics Vent support 2.DM-insulin 3.HTN continue meds 4.Sleep apnea- s/p tracheostomy 5.Anxiety/depression continue meds
[2018-04-06] MEDS ORDERED: (Novolin R) Insulin Human Regular 100 units/ml vial SC SCH ×2 (02:45→06:00)
[2018-04-06] MEDS ORDERED: methylPREDNISolone 80 MG in Sodium Chloride 0.9% 100 ML IVPB SCH (02:45)
[2018-04-06] MEDS ORDERED: Sodium Chloride 0.45% 1,000 ML IV SCH (03:00)
[2018-04-06] MEDS: Moxifloxacin IV 400mg/250ml NS 400 MG/250 ML BAG IVPB SCH (04:46)
[2018-04-06] MEDS: MethylPREDNISolone 40 mg Vial IVP SCH ×3 (04:57→22:00)
[2018-04-06] MEDS ORDERED: MethylPREDNISolone 40 mg Vial IVP SCH (05:00)
[2018-04-06 05:41] LABS: ABG ALLEN TEST POS; ARTERIAL BLOOD GAS HCO3 26.4 mmol/L (21-28); ARTERIAL BLOOD GAS HEMOGLOBIN 11.1 g/dL (11.7-17.4); ARTERIAL BLOOD GAS O2 SAT 99.8 % (95-98); ARTERIAL BLOOD GAS PCO2 48 mm/Hg (35-45); ARTERIAL BLOOD GAS PH 7.37 (7.35-7.45); ARTERIAL BLOOD GAS PO2 180 mm/Hg (80-100); ARTERIAL BLOOD GAS TCO2 29.2 mmol/L (22-28)
[2018-04-06 05:48] LABS: BASO # 0.1 K/uL (0.0-0.2); BASO % 0.3 % (0.0-2.0); EOS # 0.2 K/uL (0.0-0.7); EOS % 0.9 % (0.0-4.0); LYMPH # 2.5 K/uL (1.0-4.3); LYMPH % 14.3 % (20.0-40.0); MEAN CELL VOLUME 79.8 fL (81.0-99.0); MEAN CORPUSCULAR HEMOGLOBIN 25.5 pg (27.0-31.0); MEAN PLATELET VOLUME 8.6 fL (7.2-11.7); MONO # 1.3 K/uL (0.0-0.8); MONO % 7.5 % (0.0-10.0); NEUT # 13.6 K/uL (1.8-7.0); RBC 4.31 Mil/uL (3.80-5.20); RED CELL DISTRIBUTION WIDTH 15.7 % (11.5-14.5); WHITE BLOOD COUNT 17.7 K/uL (4.8-10.8)
[2018-04-06 06:01] LABS: ALB/GLOB RATIO 1.2 (1.0-2.1); ALBUMIN 3.6 g/dL (3.5-5.0); ALT/SGPT 18 U/L (9-52); AST/SGOT 18 U/L (14-36); BLOOD UREA NITROGEN 17 mg/dL (7-17); CALCIUM 8.9 mg/dl (8.6-10.4); GFR NON-AFRICAN AMERICAN > 60
[2018-04-06] MEDS: Albuterol-Ipratrop 3 mg / 0.5 (3 ml) UD INH SCH ×4 (07:46→19:57)
--- NOTE | 2018-04-06 09:59 | RAD ---
Date of service: 04/06/2018 HISTORY: respiratory failure COMPARISON: Portable chest 04/06/2018, 12:50 a.m.. FINDINGS: LUNGS: Limited patchy infiltrates in the right perihilar and left infrahilar spaces. Tracheostomy tube unchanged in position. PLEURA: No significant pleural effusion identified, no pneumothorax apparent. CARDIOVASCULAR: Cardiac silhouette appears stable. No pulmonary vascular congestion. Normal cardiac size. Calcific atherosclerotic changes are seen related to the thoracic aorta. OSSEOUS STRUCTURES: No significant abnormalities. VISUALIZED UPPER ABDOMEN: Normal. OTHER FINDINGS: None. IMPRESSION: Limited patchy infiltrate right perihilar and left infrahilar spaces. Stable tracheostomy tube.
[2018-04-06] MEDS: Enoxaparin 30 mg Syringe SC SCH (10:52)
--- NOTE | 2018-04-06 11:06 | RAD ---
Date of service: 04/06/2018 HISTORY: SOB COMPARISON: Portable chest 03/26/2018. FINDINGS: LUNGS: Stable tracheostomy tube. Borderline patchy right perihilar density with remaining lung perez otherwise clear. PLEURA: No significant pleural effusion identified, no pneumothorax apparent. CARDIOVASCULAR: Calcific atherosclerotic changes are seen related to the thoracic aorta. Normal cardiac size. No pulmonary vascular congestion. OSSEOUS STRUCTURES: No significant abnormalities. VISUALIZED UPPER ABDOMEN: Normal. OTHER FINDINGS: None. IMPRESSION: Borderline right perihilar patchy atelectasis or infiltrate. Remaining lung perez clear. Stable tracheostomy tube.
[2018-04-06] MEDS: Pantoprazole 40 mg EC Tab PO SCH (11:25)
[2018-04-06] MEDS: Oxycodone/Acetaminophen 5/325 mg Tab PO PRN ×2 (11:25→22:15)
[2018-04-06] MEDS: (Novolin R) Insulin Human Regular 100 units/ml vial SC SCH ×3 (13:00→22:30)
[2018-04-06] MEDS ORDERED: (Lantus) Insulin Glargine, Recombinant SC SCH (22:00)
[2018-04-07] MEDS: Albuterol-Ipratrop 3 mg / 0.5 (3 ml) UD INH SCH ×6 (00:42→23:46)
[2018-04-07] MEDS: Moxifloxacin IV 400mg/250ml NS 400 MG/250 ML BAG IVPB SCH (01:34)
[2018-04-07] MEDS: MethylPREDNISolone 40 mg Vial IVP SCH ×3 (05:41→22:27)
[2018-04-07 06:39] LABS: BASO % 0.1 % (0.0-2.0); HEMOGLOBIN 10.8 g/dL (11.0-16.0); LYMPH # 0.7 K/uL (1.0-4.3); MEAN CELL VOLUME 80.2 fL (81.0-99.0); MEAN CORPUSCULAR HGB CONC 32.4 g/dL (33.0-37.0); MONO # 0.4 K/uL (0.0-0.8); MONO % 3.7 % (0.0-10.0); NEUT % 90.2 % (50.0-75.0); NRBC % 0.1 % (0.0-2.0); PLATELET COUNT 137 K/uL (130-400); RBC 4.15 Mil/uL (3.80-5.20); RED CELL DISTRIBUTION WIDTH 15.2 % (11.5-14.5); WHITE BLOOD COUNT 11.1 K/uL (4.8-10.8)
[2018-04-07 06:49] LABS: ALB/GLOB RATIO 1.1 (1.0-2.1); ALBUMIN 3.5 g/dL (3.5-5.0); ALT/SGPT 14 U/L (9-52); AST/SGOT 12 U/L (14-36); BLOOD UREA NITROGEN 24 mg/dL (7-17); CALCIUM 8.9 mg/dl (8.6-10.4); GFR NON-AFRICAN AMERICAN > 60
[2018-04-07 09:07] LABS: LYMPHOCYTE 5 % (20-40); MONOCYTE 3 % (0-10); NEUTROPHIL 92 % (50-75); TOTAL CELLS COUNTED 100
[2018-04-07 09:08] LABS: PLATELET ESTIMATE NORMAL (NORMAL)
[2018-04-07 09:09] LABS: ANISOCYTOSIS SLIGHT; TOXIC GRANULATION PRESENT
[2018-04-07 09:10] LABS: HYPOCHROMIC SLIGHT; POLYCHROMIC SLIGHT
[2018-04-07 09:11] LABS: MICROCYTOSIS SLIGHT
[2018-04-07] MEDS: Enoxaparin 30 mg Syringe SC SCH (10:22)
[2018-04-07] MEDS: Pantoprazole 40 mg EC Tab PO SCH (10:23)
[2018-04-07] MEDS: (Novolin R) Insulin Human Regular 100 units/ml vial SC SCH ×4 (10:24→22:30)
[2018-04-07] MEDS: Oxycodone/Acetaminophen 5/325 mg Tab PO PRN ×2 (13:41→18:49)
--- NOTE | 2018-04-07 18:50 | CP.CCUPN ---
CCU Subjective - Physician Review Events Since Last Encounter (Free Text): 04/07/18 18:49 62 year old female with h/o COPD,tracheostomy,CHF,HTN,DM,Sleep apnea syndrome,siezure disorder,anxiety ,depression presents to the ED c/o congestion , SOB and fever at home. Patient has had numerous intubations in the past. Patie nt is s/p tracheostomy. Patient denies nausea, vomit, CP, palpitations. She was discharged from [facility] 03/30/18 CCU Objective - Vital Signs / Intake & Output Vital Signs (Last 4 hours): Vital Signs Pulse Resp BP 04/07/18 15:00 73 26 H 130/70 Intake and Output (Last 8hrs): Intake & Output 04/07/18 04/07/18 04/07/18 06:59 14:59 22:59 Intake Total 250 240 Output Total 300 1300 Balance -50 -1060 Weight 245 lb 4.8 oz Intake: Intake, IV Amount 250 Right Wrist 250 Oral 240 Output: Urine 300 1300 Urine, Voided 300 1300 - Medications Active Medications: Active Medications Generic Name Dose Route Start Last Admin Trade Name Freq PRN Reason Stop Dose Admin Albuterol/Ipratropium 3 ml 04/06/18 04:00 04/07/18 16:16 Duoneb 3 Mg/0.5 Mg (3 Ml) Ud INH 3 ml RQ4 SHAYLA Administration Enoxaparin Sodium 30 mg 04/06/18 10:00 04/07/18 10:22 Lovenox SC 30 mg DAILY SHAYLA Administration Gabapentin 800 mg 04/06/18 10:00 04/07/18 10:23 Neurontin PO 800 mg TID SHAYLA Administration Moxifloxacin HCl 400 mg in 250 mls @ 167 mls/hr 04/06/18 02:30 04/07/18 01:34 Avelox Iv 400mg/250ml Ns IVPB 167 mls/hr Q24H SHAYLA Administration Protocol Insulin Glargine 17 unit 04/06/18 22:00 04/06/18 22:06 Lantus SC 17 units HS SHAYLA Administration Insulin Human Regular 0 unit 04/06/18 11:30 04/07/18 10:24 Novolin R SC 8 units ACHS SHAYLA Administration Protocol Methylprednisolone 80 mg 04/06/18 05:00 04/07/18 05:41 Solu-Medrol IVP 80 mg Q8H SHAYLA Administration Montelukast Sodium 10 mg 04/06/18 22:00 04/06/18 22:04 Singulair PO 10 mg HS HSAYLA Administration Oxycodone/Acetaminophen 2 tab 04/07/18 18:32 Percocet 5/325 Mg Tab PO 04/09/18 04:24 Q6H PRN Pain, moderate (4-7) Pantoprazole Sodium 40 mg 04/06/18 10:00 04/07/18 10:23 Protonix Ec Tab PO 40 mg DAILY SHAYLA Administration Quetiapine Fumarate 400 mg 04/06/18 10:00 04/07/18 10:23 Seroquel PO 400 mg BID SHAYLA Administration Trazodone HCl 150 mg 04/06/18 22:00 04/06/18 22:04 Desyrel PO 150 mg HS SHAYLA Administration - Patient Studies Lab Studies: Microbiology Studies 04/06/18 03:35 MRSA Culture (Admit) - Final Naris MRSA NOT DETECTED 04/06/18 06:42 Gram Stain - Final Trachasp Sputum Culture - Preliminary Gram Negative Parrish 04/06/18 02:30 Blood Culture - Preliminary Blood NO GROWTH AFTER 24 HOURS 04/06/18 02:30 Blood Culture - Preliminary Blood NO GROWTH AFTER 24 HOURS Lab Studies 04/07/18 04/07/18 04/07/18 Range/Units 16:49 12:04 08:06 WBC (4.8-10.8) K/uL RBC (3.80-5.20) Mil/uL Hgb (11.0-16.0) g/dL Hct (34.0-47.0) % MCV (81.0-99.0) fL MCH (27.0-31.0) pg MCHC (33.0-37.0) g/dL RDW (11.5-14.5) % Plt Count (130-400) K/uL MPV (7.2-11.7) fL Neut % (Auto) (50.0-75.0) % Lymph % (Auto) (20.0-40.0) % [place] % (Auto) (0.0-10.0) % Eos % (Auto) (0.0-4.0) % Baso % (Auto) (0.0-2.0) % Neut # (Auto) (1.8-7.0) K/uL Lymph # (Auto) (1.0-4.3) K/uL [place] # (Auto) (0.0-0.8) K/uL Eos # (Auto) (0.0-0.7) K/uL Baso # (Auto) (0.0-0.2) K/uL Neutrophils % (Manual) (50-75) % Lymphocytes % (Manual) (20-40) % Monocytes % (Manual) (0-10) % Toxic Granulation Platelet Estimate (NORMAL) Polychromasia Hypochromasia (manual) Anisocytosis (manual) Microcytosis (manual) Sodium (132-148) mmol/L Potassium (3.6-5.2) mmol/L Chloride (98-107) mmol/L Carbon Dioxide (22-30) mmol/L Anion Gap (10-20) BUN (7-17) mg/dL Creatinine (0.7-1.2) mg/dL Est GFR ( Amer) Est GFR (Non-Af Amer) POC Glucose (mg/dL) 375 H 472 H* 365 H (65-110) mg/dL Random Glucose (65-105) mg/dL Calcium (8.6-10.4) mg/dl Total Bilirubin (0.2-1.3) mg/dL AST (14-36) U/L ALT (9-52) U/L Alkaline Phosphatase (38-126) U/L Total Protein (6.3-8.3) g/dL Albumin (3.5-5.0) g/dL Globulin (2.2-3.9) gm/dL Albumin/Globulin Ratio (1.0-2.1) 04/07/18 04/07/18 04/07/18 Range/Units 06:25 06:25 03:34 WBC 11.1 H (4.8-10.8) K/uL RBC 4.15 (3.80-5.20) Mil/uL Hgb 10.8 L (11.0-16.0) g/dL Hct 33.3 L (34.0-47.0) % MCV 80.2 L (81.0-99.0) fL MCH 26.0 L (27.0-31.0) pg MCHC 32.4 L (33.0-37.0) g/dL RDW 15.2 H (11.5-14.5) % Plt Count 137 (130-400) K/uL MPV 9.0 (7.2-11.7) fL Neut % (Auto) 90.2 H (50.0-75.0) % Lymph % (Auto) 6.0 L (20.0-40.0) % [place] % (Auto) 3.7 (0.0-10.0) % Eos % (Auto) 0.0 (0.0-4.0) % Baso % (Auto) 0.1 (0.0-2.0) % Neut # (Auto) 10.0 H (1.8-7.0) K/uL Lymph # (Auto) 0.7 L (1.0-4.3) K/uL [place] # (Auto) 0.4 (0.0-0.8) K/uL Eos # (Auto) 0.0 (0.0-0.7) K/uL Baso # (Auto) 0.0 (0.0-0.2) K/uL Neutrophils % (Manual) 92 H (50-75) % Lymphocytes % (Manual) 5 L (20-40) % Monocytes % (Manual) 3 (0-10) % Toxic Granulation Present Platelet Estimate Normal (NORMAL) Polychromasia Slight Hypochromasia (manual) Slight Anisocytosis (manual) Slight Microcytosis (manual) Slight Sodium 137 (132-148) mmol/L Potassium 4.5 (3.6-5.2) mmol/L Chloride 105 (98-107) mmol/L Carbon Dioxide 28 (22-30) mmol/L Anion Gap 9 L (10-20) BUN 24 H (7-17) mg/dL Creatinine 0.9 (0.7-1.2) mg/dL Est GFR ( Amer) > 60 Est GFR (Non-Af Amer) > 60 POC Glucose (mg/dL) 365 H (65-110) mg/dL Random Glucose 358 H D (65-105) mg/dL Calcium 8.9 (8.6-10.4) mg/dl Total Bilirubin 0.6 (0.2-1.3) mg/dL AST 12 L D (14-36) U/L ALT 14 (9-52) U/L Alkaline Phosphatase 94 (38-126) U/L Total Protein 6.7 (6.3-8.3) g/dL Albumin 3.5 (3.5-5.0) g/dL Globulin 3.2 (2.2-3.9) gm/dL Albumin/Globulin Ratio 1.1 (1.0-2.1) 04/06/18 Range/Units 22:23 WBC (4.8-10.8) K/uL RBC (3.80-5.20) Mil/uL Hgb (11.0-16.0) g/dL Hct (34.0-47.0) % MCV (81.0-99.0) fL MCH (27.0-31.0) pg MCHC (33.0-37.0) g/dL RDW (11.5-14.5) % Plt Count (130-400) K/uL MPV (7.2-11.7) fL Neut % (Auto) (50.0-75.0) % Lymph % (Auto) (20.0-40.0) % [place] % (Auto) (0.0-10.0) % Eos % (Auto) (0.0-4.0) % Baso % (Auto) (0.0-2.0) % Neut # (Auto) (1.8-7.0) K/uL Lymph # (Auto) (1.0-4.3) K/uL [place] # (Auto) (0.0-0.8) K/uL Eos # (Auto) (0.0-0.7) K/uL Baso # (Auto) (0.0-0.2) K/uL Neutrophils % (Manual) (50-75) % Lymphocytes % (Manual) (20-40) % Monocytes % (Manual) (0-10) % Toxic Granulation Platelet Estimate (NORMAL) Polychromasia Hypochromasia (manual) Anisocytosis (manual) Microcytosis (manual) Sodium (132-148) mmol/L Potassium (3.6-5.2) mmol/L Chloride (98-107) mmol/L Carbon Dioxide (22-30) mmol/L Anion Gap (10-20) BUN (7-17) mg/dL Creatinine (0.7-1.2) mg/dL Est GFR ( Amer) Est GFR (Non-Af Amer) POC Glucose (mg/dL) 342 H (65-110) mg/dL Random Glucose (65-105) mg/dL Calcium (8.6-10.4) mg/dl Total Bilirubin (0.2-1.3) mg/dL AST (14-36) U/L ALT (9-52) U/L Alkaline Phosphatase (38-126) U/L Total Protein (6.3-8.3) g/dL Albumin (3.5-5.0) g/dL Globulin (2.2-3.9) gm/dL Albumin/Globulin Ratio (1.0-2.1) Laboratory Results - last 24 hr 04/06/18 04/07/18 04/07/18 22:23 03:34 06:25 WBC 11.1 H RBC 4.15 Hgb 10.8 L Hct 33.3 L MCV 80.2 L MCH 26.0 L MCHC 32.4 L RDW 15.2 H Plt Count 137 MPV 9.0 Neut % (Auto) 90.2 H Lymph % (Auto) 6.0 L [place] % (Auto) 3.7 Eos % (Auto) 0.0 Baso % (Auto) 0.1 Neut # (Auto) 10.0 H Lymph # (Auto) 0.7 L [place] # (Auto) 0.4 Eos # (Auto) 0.0 Baso # (Auto) 0.0 Neutrophils % (Manual) 92 H Lymphocytes % (Manual) 5 L Monocytes % (Manual) 3 Toxic Granulation Present Platelet Estimate Normal Polychromasia Slight Hypochromasia (manual) Slight Anisocytosis (manual) Slight Microcytosis (manual) Slight Sodium Potassium Chloride Carbon Dioxide Anion Gap BUN Creatinine Est GFR ( Amer) Est GFR (Non-Af Amer) POC Glucose (mg/dL) 342 H 365 H Random Glucose Calcium Total Bilirubin AST ALT Alkaline Phosphatase Total Protein Albumin Globulin Albumin/Globulin Ratio 04/07/18 04/07/18 04/07/18 06:25 08:06 12:04 WBC RBC Hgb Hct MCV MCH MCHC RDW Plt Count MPV Neut % (Auto) Lymph % (Auto) [place] % (Auto) Eos % (Auto) Baso % (Auto) Neut # (Auto) Lymph # (Auto) [place] # (Auto) Eos # (Auto) Baso # (Auto) Neutrophils % (Manual) Lymphocytes % (Manual) Monocytes % (Manual) Toxic Granulation Platelet Estimate Polychromasia Hypochromasia (manual) Anisocytosis (manual) Microcytosis (manual) Sodium 137 Potassium 4.5 Chloride 105 Carbon Dioxide 28 Anion Gap 9 L BUN 24 H Creatinine 0.9 Est GFR ( Amer) > 60 Est GFR (Non-Af Amer) > 60 POC Glucose (mg/dL) 365 H 472 H* Random Glucose 358 H D Calcium 8.9 Total Bilirubin 0.6 AST 12 L D ALT 14 Alkaline Phosphatase 94 Total Protein 6.7 Albumin 3.5 Globulin 3.2 Albumin/Globulin Ratio 1.1 04/07/18 16:49 WBC RBC Hgb Hct MCV MCH MCHC RDW Plt Count MPV Neut % (Auto) Lymph % (Auto) [place] % (Auto) Eos % (Auto) Baso % (Auto) Neut # (Auto) Lymph # (Auto) [place] # (Auto) Eos # (Auto) Baso # (Auto) Neutrophils % (Manual) Lymphocytes % (Manual) Monocytes % (Manual) Toxic Granulation Platelet Estimate Polychromasia Hypochromasia (manual) Anisocytosis (manual) Microcytosis (manual) Sodium Potassium Chloride Carbon Dioxide Anion Gap BUN Creatinine Est GFR ( Amer) Est GFR (Non-Af Amer) POC Glucose (mg/dL) 375 H Random Glucose Calcium Total Bilirubin AST ALT Alkaline Phosphatase Total Protein Albumin Globulin Albumin/Globulin Ratio Fingerstick Blood Sugar Results: 342 Critical Care Progress Note - Nutrition Nutrition: Nutrition Category Date Time Status Consistent Carbohydrate [DIET] Diets 04/06/18 Lunch Active Assessment/Plan - Assessment and Plan (Free Text) Assessment: Acute respiratory failure malfunction of the tracheostomy doing well. Transferred to telemetry
--- NOTE | 2018-04-07 19:10 | CP.PCM.HP ---
Present on Admission - Present on Admission Any Indicators Present on Admission: Yes History of Uncontrolled Diabetes: Yes Past Patient History - Infectious Disease Hx of Infectious Diseases: None - Tetanus Immunizations Tetanus Immunization: Unknown - Past Medical History & Family History Past Medical History?: Yes - Past Social History Smoking Status: Unknown If Ever Smoked - CARDIAC Hx Cardia Arrhythmia: Yes Hx Congestive Heart Failure: Yes Hx Hypercholesterolemia: No Hx Hypertension: Yes Hx Pacemaker: No - PULMONARY Hx Asthma: Yes Hx Bronchitis: Yes Hx Chronic Obstructive Pulmonary Disease (COPD): Yes Hx Emphysema: Yes Hx Pneumonia: Yes Hx Respiratory Tract Infection: Yes Hx Sleep Apnea: Yes - NEUROLOGICAL Hx Seizures: Yes - HEENT Hx HEENT Problems: Yes Hx Cataracts: Yes - RENAL Hx Chronic Kidney Disease: No - ENDOCRINE/METABOLIC Hx Hypothyroidism: No - HEMATOLOGICAL/ONCOLOGICAL Hx Human Immunodeficiency Virus (HIV): No - INTEGUMENTARY Hx Dermatological Problems: No - MUSCULOSKELETAL/RHEUMATOLOGICAL Hx Arthritis: No Hx Falls: No Hx Rheumatoid Arthritis: No - GASTROINTESTINAL Hx Gall Bladder Disease: Yes - GENITOURINARY/GYNECOLOGICAL Hx Sexually Transmitted Disorders: No - PSYCHIATRIC Hx Anxiety: Yes Hx Bipolar Disorder: Yes Hx Depression: Yes Hx Substance Use: No - SURGICAL HISTORY Hx Appendectomy: Yes Hx Cholecystectomy: Yes - ANESTHESIA Hx Anesthesia: Yes Hx Anesthesia Reactions: No Hx Malignant Hyperthermia: No Meds Allergies/Adverse Reactions: Allergies Allergy/AdvReac Type Severity Reaction Status Date / Time aspirin Allergy ANAPHYLAXIS Verified 04/05/18 23:11 ceftriaxone sodium Allergy ANAPHYLAXIS Verified 04/05/18 23:11 [From Rocephin] ibuprofen [From Motrin] Allergy ANAPHYLAXIS Verified 04/05/18 23:11 iodine Allergy ANAPHYLAXIS Verified 04/05/18 23:11 raspberry Allergy ANAPHYLAXIS Verified 04/05/18 23:11 Results - Vital Signs Recent Vital Signs: Last Vital Signs Temp 98.0 F 04/07/18 12:00 Pulse 73 04/07/18 15:00 Resp 26 H 04/07/18 15:00 BP 130/70 04/07/18 15:00 Pulse Ox 96 04/07/18 06:02 - Labs Result Diagrams: 04/07/18 06:25 04/07/18 06:25 Labs: Laboratory Results - last 24 hr 04/06/18 04/07/18 04/07/18 22:23 03:34 06:25 WBC 11.1 H RBC 4.15 Hgb 10.8 L Hct 33.3 L MCV 80.2 L MCH 26.0 L MCHC 32.4 L RDW 15.2 H Plt Count 137 MPV 9.0 Neut % (Auto) 90.2 H Lymph % (Auto) 6.0 L [place] % (Auto) 3.7 Eos % (Auto) 0.0 Baso % (Auto) 0.1 Neut # (Auto) 10.0 H Lymph # (Auto) 0.7 L [place] # (Auto) 0.4 Eos # (Auto) 0.0 Baso # (Auto) 0.0 Neutrophils % (Manual) 92 H Lymphocytes % (Manual) 5 L Monocytes % (Manual) 3 Toxic Granulation Present Platelet Estimate Normal Polychromasia Slight Hypochromasia (manual) Slight Anisocytosis (manual) Slight Microcytosis (manual) Slight Sodium Potassium Chloride Carbon Dioxide Anion Gap BUN Creatinine Est GFR ( Amer) Est GFR (Non-Af Amer) POC Glucose (mg/dL) 342 H 365 H Random Glucose Calcium Total Bilirubin AST ALT Alkaline Phosphatase Total Protein Albumin Globulin Albumin/Globulin Ratio 04/07/18 04/07/18 04/07/18 06:25 08:06 12:04 WBC RBC Hgb Hct MCV MCH MCHC RDW Plt Count MPV Neut % (Auto) Lymph % (Auto) [place] % (Auto) Eos % (Auto) Baso % (Auto) Neut # (Auto) Lymph # (Auto) [place] # (Auto) Eos # (Auto) Baso # (Auto) Neutrophils % (Manual) Lymphocytes % (Manual) Monocytes % (Manual) Toxic Granulation Platelet Estimate Polychromasia Hypochromasia (manual) Anisocytosis (manual) Microcytosis (manual) Sodium 137 Potassium 4.5 Chloride 105 Carbon Dioxide 28 Anion Gap 9 L BUN 24 H Creatinine 0.9 Est GFR ( Amer) > 60 Est GFR (Non-Af Amer) > 60 POC Glucose (mg/dL) 365 H 472 H* Random Glucose 358 H D Calcium 8.9 Total Bilirubin 0.6 AST 12 L D ALT 14 Alkaline Phosphatase 94 Total Protein 6.7 Albumin 3.5 Globulin 3.2 Albumin/Globulin Ratio 1.1 04/07/18 16:49 WBC RBC Hgb Hct MCV MCH MCHC RDW Plt Count MPV Neut % (Auto) Lymph % (Auto) [place] % (Auto) Eos % (Auto) Baso % (Auto) Neut # (Auto) Lymph # (Auto) [place] # (Auto) Eos # (Auto) Baso # (Auto) Neutrophils % (Manual) Lymphocytes % (Manual) Monocytes % (Manual) Toxic Granulation Platelet Estimate Polychromasia Hypochromasia (manual) Anisocytosis (manual) Microcytosis (manual) Sodium Potassium Chloride Carbon Dioxide Anion Gap BUN Creatinine Est GFR ( Amer) Est GFR (Non-Af Amer) POC Glucose (mg/dL) 375 H Random Glucose Calcium Total Bilirubin AST ALT Alkaline Phosphatase Total Protein Albumin Globulin Albumin/Globulin Ratio
--- NOTE | 2018-04-07 19:14 | CP.PCM.PN ---
Subjective - Date & Time of Evaluation Date of Evaluation: 04/07/18 Time of Evaluation: 10:40 - Subjective Subjective: dictated Objective - Vital Signs/Intake and Output Vital Signs (last 24 hours): Temp Pulse Resp BP Pulse Ox 98.0 F 73 26 H 130/70 96 04/07/18 12:00 04/07/18 15:00 04/07/18 15:00 04/07/18 15:00 04/07/18 06:02 Intake and Output: 04/07/18 04/08/18 18:59 06:59 Intake Total 240 Output Total 1300 Balance -1060 - Medications Medications: Current Medications Albuterol/Ipratropium (Duoneb 3 Mg/0.5 Mg (3 Ml) Ud) 3 ml INH RQ4 [facility] Last Admin: 04/07/18 16:16 Dose: 3 ml Enoxaparin Sodium (Lovenox) 30 mg SC DAILY [facility] Last Admin: 04/07/18 10:22 Dose: 30 mg Gabapentin (Neurontin) 800 mg PO TID [facility] Last Admin: 04/07/18 18:50 Dose: 800 mg Moxifloxacin HCl (Avelox Iv 400mg/250ml Ns) 400 mg in 250 mls @ 167 mls/hr IVPB Q24H [facility]; Protocol Last Admin: 04/07/18 01:34 Dose: 167 mls/hr Insulin Glargine (Lantus) 17 unit SC [facility] Last Admin: 04/06/18 22:06 Dose: 17 units Insulin Human Regular (Novolin R) 0 unit SC [facility]; Protocol Last Admin: 04/07/18 17:53 Dose: 8 units Methylprednisolone (Solu-Medrol) 80 mg IVP Q8H [facility] Last Admin: 04/07/18 12:53 Dose: 80 mg Montelukast Sodium (Singulair) 10 mg PO [facility] Last Admin: 04/06/18 22:04 Dose: 10 mg Oxycodone/Acetaminophen (Percocet 5/325 Mg Tab) 2 tab PO Q6H PRN PRN Reason: Pain, moderate (4-7) Stop: 04/09/18 04:24 Last Admin: 04/07/18 18:49 Dose: 2 tab Pantoprazole Sodium (Protonix Ec Tab) 40 mg PO DAILY [facility] Last Admin: 04/07/18 10:23 Dose: 40 mg Quetiapine Fumarate (Seroquel) 400 mg PO BID [facility] Last Admin: 04/07/18 18:48 Dose: 400 mg Trazodone HCl (Desyrel) 150 mg PO [facility] Last Admin: 04/06/18 22:04 Dose: 150 mg - Labs Labs: 04/07/18 06:25 04/07/18 06:25 PT 10.9 SECONDS (9.7-12.2) 04/06/18 00:44 INR 1.0 04/06/18 00:44 APTT 35 SECONDS (21-34) H 04/06/18 00:44
[2018-04-07] MEDS: (Lantus) Insulin Glargine, Recombinant SC SCH (22:28)
--- NOTE | 2018-04-07 23:04 | PN ---
DATE: 04/07/2018 SUBJECTIVE: The patient feels better. No fever. Less short of breath. Less dyspneic. No tachycardia. WBC went down. Blood sugar is high. PHYSICAL EXAMINATION: VITAL SIGNS: Blood pressure 130/70, pulse 80, respiratory rate 20, and temperature 98. NECK: Supple. LUNGS: Bilateral expiratory and inspiratory rhonchi. Decreased air entry. CARDIOVASCULAR SYSTEM: S1, S2. Regular. ABDOMEN: Soft and nontender. Bowel sounds are positive. CENTRAL NERVOUS SYSTEM: Awake, alert, and oriented x3. ASSESSMENT: 1. Acute exacerbation of bronchial asthma. 2. Tracheal bronchitis, rule out pneumonia. The patient has long-term tracheostomy and the patient keeps getting recurrent infections. She was recently discharged from the hospital. 3. Type 2 diabetes, poorly controlled, mostly it is due to steroids. 4. Depression. 5. Hypertension. PLAN: Continue antibiotics, Solu-Medrol, and monitor the patient. Ad Khan MD
[2018-04-08] MEDS: Albuterol-Ipratrop 3 mg / 0.5 (3 ml) UD INH SCH ×6 (03:05→23:55)
[2018-04-08] MEDS: Moxifloxacin IV 400mg/250ml NS 400 MG/250 ML BAG IVPB SCH (03:26)
--- NOTE | 2018-04-08 05:29 | HP ---
CHIEF COMPLAINT: Cough, shortness of breath. HISTORY OF PRESENT ILLNESS: This is a 62-year-old female with a history of chronic obstructive asthma; tracheostomy which is longstanding; hypertension; type 2 diabetes, on insulin; sleep apnea; anxiety; depression; who was recently discharged from [facility] on 03/30/2018. She came in because of recurrent cough, congestion, shortness of breath, wheezing, thick yellow sputum production from tracheostomy, weakness, chest pain upon coughing, chest congestion, tightness, anorexia, malaise, and fatigue. The patient was recently discharged, and post discharge, she was compliant with diet, medication. She was taking her antibiotics, tapering doses of steroid despite all the precaution and frequent infection, and she developed cough, congestion, shortness of breath for the last 2 days, and she came to emergency room. She has generalized weakness. She is anxious. She is depressed. She is weak. She has pain around tracheostomy site. She has chest pain. She has tingling and numbness in the feet. She denies any polyuria or polydipsia. She has incontinence. She has joint pain in the knees. She denies any back pain. She has no history of malaise. PAST MEDICAL HISTORY: Morbid obesity, sleep apnea, bronchial asthma, hypertension, diabetes, anxiety, depression, and seizures. SOCIAL HISTORY: Nonsmoker. Non-ETOH user. She lives with her daughter. CURRENT MEDICATIONS: Ativan, Lantus, guaifenesin, Neurontin, Tessalon, DuoNeb, Tylenol, trazodone, prednisone, Percocet, Robitussin, Zoloft, Seroquel, Protonix, and Singulair. PHYSICAL EXAMINATION: GENERAL: An elderly female in distress with cough and congestion. VITAL SIGNS: The patient's blood pressure is 116/61, pulse 57, respiratory rate 22, and temperature 98.3. SKIN: No rashes. HEENT: Atraumatic and normocephalic. Negative pallor. Negative jaundice. Extraocular movements are intact. NECK: The patient has tracheostomy, thick, yellow, green secretion. No JVD. No lymph nodes. No thyromegaly. No carotid bruit. CHEST: Chest wall, bilateral symmetrical expansion. Chest wall, no deformity. BREASTS: No masses. No discharge. CARDIOVASCULAR SYSTEM: S1 and S2 regular. No heave. No thrill. LUNGS: Bilateral inspiratory and expiratory rhonchi and crackles with decreased air entry. ABDOMEN: Soft, nontender. Bowel sounds are positive. RECTAL: Negative. No bleeding. PELVIC: Negative. No masses. EXTREMITIES: No clubbing, cyanosis, or edema. CENTRAL NERVOUS SYSTEM: Awake, alert, and oriented x3. Cranial nerves II through XII are intact. ASSESSMENT: 1. Acute tracheobronchitis, rule out pneumonia. There is a right-sided infiltrate. 2. Exacerbation of bronchial asthma. 3. Type 2 diabetes worsening due to steroid. 4. Hypertension. PLAN: ICU, pulmonary evaluation, AccuChek sliding scale, Solu-Medrol, antibiotics, and monitor the patient. The patient's sputum culture . Ad Khan MD
[2018-04-08] MEDS: MethylPREDNISolone 40 mg Vial IVP SCH ×3 (05:38→20:48)
[2018-04-08] MEDS: Oxycodone/Acetaminophen 5/325 mg Tab PO PRN ×2 (06:33→23:24)
[2018-04-08] MEDS: (Novolin R) Insulin Human Regular 100 units/ml vial SC SCH ×4 (08:15→22:32)
[2018-04-08] MEDS: Pantoprazole 40 mg EC Tab PO SCH (10:17)
[2018-04-08] MEDS: Enoxaparin 30 mg Syringe SC SCH (10:17)
--- NOTE | 2018-04-08 17:42 | CP.PCM.CON ---
History of Present Illness - History of Present Illness History of Present Illness: Patient is a 62 year old femal with h/o COPD, tracheostomy, CHF, HTN, DM, Sleep apnea syndrome, siezure disorder, anxiety, depression pression presented to the ED with c/o congestion, SOB, and fever at home. Patient seen and examined at bedside, afebrile. She is have some soreness around tracheostomy . Patient reports the cuff on her trachestomy is no longer present. ROS: diffcult to assess due to non-verbal patient PMH:COPD, tracheostomy, CHF, HTN, DM, Sleep apnea syndrome, siezure disorder, anxiety, depression Surgical:Appedectomy. Cholecystectomy. Social:Denies Med: As per EMR Allergies: ASA, ceftriaxone, ibuprofen, iodine, raspberry Physical Exam Gen: AAOx3, no acute distress Cardio:RRR, no murmur Pulm: decreased breath sounds, ronchi bilaterally GI:soft, nontender A&P: Tracheal bronchitis/ tracheostomy -Chest xray on 04/06/18 showed limited patchy infiltrate right perihilar and left infrahilar spaces -Continue antibiotics -Recommend sputum culture and sensitivity -Recommend surgery consult to assess the need for tracheostomy replacement COPD -continue Duoneb 3mg -Continue soluMedrol 80mg Q8H -Continue Singulair 10mg po Past Patient History - Infectious Disease Hx of Infectious Diseases: None - Tetanus Immunizations Tetanus Immunization: Unknown - Past Medical History & Family History Past Medical History?: Yes - Past Social History Smoking Status: Unknown If Ever Smoked - CARDIAC Hx Cardia Arrhythmia: Yes Hx Congestive Heart Failure: Yes Hx Hypercholesterolemia: No Hx Hypertension: Yes Hx Pacemaker: No - PULMONARY Hx Asthma: Yes Hx Bronchitis: Yes Hx Chronic Obstructive Pulmonary Disease (COPD): Yes Hx Emphysema: Yes Hx Pneumonia: Yes Hx Respiratory Tract Infection: Yes Hx Sleep Apnea: Yes - NEUROLOGICAL Hx Seizures: Yes - HEENT Hx HEENT Problems: Yes Hx Cataracts: Yes - RENAL Hx Chronic Kidney Disease: No - ENDOCRINE/METABOLIC Hx Hypothyroidism: No - HEMATOLOGICAL/ONCOLOGICAL Hx Human Immunodeficiency Virus (HIV): No - INTEGUMENTARY Hx Dermatological Problems: No - MUSCULOSKELETAL/RHEUMATOLOGICAL Hx Arthritis: No Hx Falls: No Hx Rheumatoid Arthritis: No - GASTROINTESTINAL Hx Gall Bladder Disease: Yes - GENITOURINARY/GYNECOLOGICAL Hx Sexually Transmitted Disorders: No - PSYCHIATRIC Hx Anxiety: Yes Hx Bipolar Disorder: Yes Hx Depression: Yes Hx Substance Use: No - SURGICAL HISTORY Hx Appendectomy: Yes Hx Cholecystectomy: Yes - ANESTHESIA Hx Anesthesia: Yes Hx Anesthesia Reactions: No Hx Malignant Hyperthermia: No Meds Allergies/Adverse Reactions: Allergies Allergy/AdvReac Type Severity Reaction Status Date / Time aspirin Allergy ANAPHYLAXIS Verified 04/05/18 23:11 ceftriaxone sodium Allergy ANAPHYLAXIS Verified 04/05/18 23:11 [From Rocephin] ibuprofen [From Motrin] Allergy ANAPHYLAXIS Verified 04/05/18 23:11 iodine Allergy ANAPHYLAXIS Verified 04/05/18 23:11 raspberry Allergy ANAPHYLAXIS Verified 04/05/18 23:11 - Medications Medications: Current Medications Albuterol/Ipratropium (Duoneb 3 Mg/0.5 Mg (3 Ml) Ud) 3 ml INH RQ4 [facility] Last Admin: 04/08/18 15:30 Dose: 3 ml Enoxaparin Sodium (Lovenox) 30 mg SC DAILY [facility] Last Admin: 04/08/18 10:17 Dose: 30 mg Gabapentin (Neurontin) 800 mg PO TID [facility] Last Admin: 04/08/18 14:00 Dose: 800 mg Amikacin Sulfate 500 mg/ (Sodium Chloride) 100 mls @ 100 mls/hr IVPB Q8H [facility]; Protocol Last Admin: 04/08/18 17:10 Dose: 100 mls/hr Insulin Glargine (Lantus) 24 unit SC [facility] Last Admin: 04/07/18 22:28 Dose: 24 unit Insulin Human Regular (Novolin R) 0 unit SC [facility]; Protocol Last Admin: 04/08/18 17:09 Dose: 8 units Methylprednisolone (Solu-Medrol) 80 mg IVP Q8H [facility] Last Admin: 04/08/18 12:50 Dose: 80 mg Montelukast Sodium (Singulair) 10 mg PO HS [facility] Last Admin: 04/07/18 22:26 Dose: 10 mg Oxycodone/Acetaminophen (Percocet 5/325 Mg Tab) 2 tab PO Q6H PRN PRN Reason: Pain, moderate (4-7) Stop: 04/09/18 04:24 Last Admin: 04/08/18 06:33 Dose: 2 tab Pantoprazole Sodium (Protonix Ec Tab) 40 mg PO DAILY [facility] Last Admin: 04/08/18 10:17 Dose: 40 mg Quetiapine Fumarate (Seroquel) 400 mg PO BID [facility] Last Admin: 04/08/18 17:13 Dose: 400 mg Trazodone HCl (Desyrel) 150 mg PO [facility] Last Admin: 04/07/18 22:25 Dose: 150 mg Results - Vital Signs Recent Vital Signs: Last Vital Signs Temp 98.1 F 04/08/18 08:00 Pulse 66 04/08/18 10:00 Resp 13 04/08/18 10:00 BP 166/76 H 04/08/18 09:19 Pulse Ox 95 04/08/18 10:00 - Labs Result Diagrams: 04/07/18 06:25 04/07/18 06:25 Labs: Laboratory Results - last 24 hr 04/07/18 04/08/18 04/08/18 21:04 11:06 16:16 POC Glucose (mg/dL) 213 H 342 H 351 H
--- NOTE | 2018-04-08 21:25 | CP.PCM.CON ---
History of Present Illness - History of Present Illness History of Present Illness: HPI: Patient is a 62 year old female with history of COPD, HTN, CHF, sp tracheostomy who presented for 3 day history of shortness of breath associated with fever, bodyaches PMH: COPD, HTN, CHF, sp tracheostomy, anxiety, depression, seizures PSH: appendectomy, cholecystectomy, tracheostomy Home meds: As per MAR, Trazodone, Protonix, Singulair, Seroquel, Gabapentin, Lantus Social hx: no tobacco, alcohol or drug use. Allergies: ASA, Rocephn, Ibuprofen, Iodine, raspberry Review of Systems - Review of Systems Review of Systems: Unable to evaluate as patient was on sedation Physical Exam - Constitutional Appears: Non-toxic - Respiratory Exam Respiratory Exam: NORMAL BREATHING PATTERN Additional comments: With tracheostomy - Cardiovascular Exam Cardiovascular Exam: REGULAR RHYTHM, +S1, +S2 - GI/Abdominal Exam GI & Abdominal Exam: Normal Bowel Sounds - Extremities Exam Extremities exam: Negative for: pedal edema Assessment & Plan (1) Respiratory distress Assessment and Plan: Patient is a 62 year old female with history of COPD, HTN, CHF, sp tracheostomy who presented for 3 day history of shortness of breath associated with fever, bodyaches Imaging/ Labs: Chest X-ray: Tracheostomy tube. Right-sided PICC. Cardiomegaly. Evidence of multifocal pneumonia Chest CT: Multifocal infiltrates. No evidence of mucous plugging. Mild mediastinal lymphadenopathy. Mild cardiomegaly. Multiple old vertebral compression fractures. Mild hepatosplenomegaly. Tracheostomy noted. Echocardiogram (04/28/17): Mild concentric left ventricular hypertrophy. LV function is normal. LV EF is within normal range. Normal LV segmental wall hazel on. Aortic valve is moderately calcified and possibly bicuspied, Moderate valvular aortic stenosis Troponin negative X1 Medications: - Acetylcysteine 4ml INH Q6H - Duonebs 3ML INH RQ4H - Azithromycin 500mg IV Q24H - Meropenem 1gm IV Q8H - Vanco 1gm IV Q12H - Singulair 10mg PO HS - Robitussin 200mg PO Q4H PRN Continue all current management for respiratory distress as per pulmonology and ICU team Past Patient History - Infectious Disease Hx of Infectious Diseases: None - Tetanus Immunizations Tetanus Immunization: Unknown - Past Medical History & Family History Past Medical History?: Yes - Past Social History Smoking Status: Unknown If Ever Smoked - CARDIAC Hx Cardia Arrhythmia: Yes Hx Congestive Heart Failure: Yes Hx Hypercholesterolemia: No Hx Hypertension: Yes Hx Pacemaker: No - PULMONARY Hx Asthma: Yes Hx Bronchitis: Yes Hx Chronic Obstructive Pulmonary Disease (COPD): Yes Hx Emphysema: Yes Hx Pneumonia: Yes Hx Respiratory Tract Infection: Yes Hx Sleep Apnea: Yes - NEUROLOGICAL Hx Seizures: Yes - HEENT Hx HEENT Problems: Yes Hx Cataracts: Yes - RENAL Hx Chronic Kidney Disease: No - ENDOCRINE/METABOLIC Hx Hypothyroidism: No - HEMATOLOGICAL/ONCOLOGICAL Hx Human Immunodeficiency Virus (HIV): No - INTEGUMENTARY Hx Dermatological Problems: No - MUSCULOSKELETAL/RHEUMATOLOGICAL Hx Arthritis: No Hx Falls: No Hx Rheumatoid Arthritis: No - GASTROINTESTINAL Hx Gall Bladder Disease: Yes - GENITOURINARY/GYNECOLOGICAL Hx Sexually Transmitted Disorders: No - PSYCHIATRIC Hx Anxiety: Yes Hx Bipolar Disorder: Yes Hx Depression: Yes Hx Substance Use: No - SURGICAL HISTORY Hx Appendectomy: Yes Hx Cholecystectomy: Yes - ANESTHESIA Hx Anesthesia: Yes Hx Anesthesia Reactions: No Hx Malignant Hyperthermia: No Meds Allergies/Adverse Reactions: Allergies Allergy/AdvReac Type Severity Reaction Status Date / Time aspirin Allergy ANAPHYLAXIS Verified 04/05/18 23:11 ceftriaxone sodium Allergy ANAPHYLAXIS Verified 04/05/18 23:11 [From Rocephin] ibuprofen [From Motrin] Allergy ANAPHYLAXIS Verified 04/05/18 23:11 iodine Allergy ANAPHYLAXIS Verified 04/05/18 23:11 raspberry Allergy ANAPHYLAXIS Verified 04/05/18 23:11 - Medications Medications: Current Medications Albuterol/Ipratropium (Duoneb 3 Mg/0.5 Mg (3 Ml) Ud) 3 ml INH RQ4 [facility] Last Admin: 04/08/18 19:11 Dose: 3 ml Enoxaparin Sodium (Lovenox) 30 mg SC DAILY [facility] Last Admin: 04/08/18 10:17 Dose: 30 mg Gabapentin (Neurontin) 800 mg PO TID [facility] Last Admin: 04/08/18 20:39 Dose: 800 mg Amikacin Sulfate 500 mg/ (Sodium Chloride) 100 mls @ 100 mls/hr IVPB Q8H [facility]; Protocol Last Admin: 04/08/18 17:10 Dose: 100 mls/hr Insulin Glargine (Lantus) 24 unit SC HS [facility] Last Admin: 04/07/18 22:28 Dose: 24 unit Insulin Human Regular (Novolin R) 0 unit SC [facility]; Protocol Last Admin: 04/08/18 17:09 Dose: 8 units Methylprednisolone (Solu-Medrol) 80 mg IVP Q8H [facility] Last Admin: 04/08/18 20:48 Dose: 80 mg Montelukast Sodium (Singulair) 10 mg PO [facility] Last Admin: 04/07/18 22:26 Dose: 10 mg Oxycodone/Acetaminophen (Percocet 5/325 Mg Tab) 2 tab PO Q6H PRN PRN Reason: Pain, moderate (4-7) Stop: 04/09/18 04:24 Last Admin: 04/08/18 06:33 Dose: 2 tab Pantoprazole Sodium (Protonix Ec Tab) 40 mg PO DAILY [facility] Last Admin: 04/08/18 10:17 Dose: 40 mg Quetiapine Fumarate (Seroquel) 400 mg PO BID [facility] Last Admin: 04/08/18 17:13 Dose: 400 mg Trazodone HCl (Desyrel) 150 mg PO [facility] Last Admin: 04/07/18 22:25 Dose: 150 mg Results - Vital Signs Recent Vital Signs: Last Vital Signs Temp 99.1 F 04/08/18 16:00 Pulse 70 04/08/18 20:14 Resp 12 04/08/18 20:14 BP 109/72 04/08/18 20:14 Pulse Ox 96 04/08/18 20:14 - Labs Result Diagrams: 04/07/18 06:25 04/07/18 06:25 Labs: Laboratory Results - last 24 hr 04/08/18 04/08/18 04/08/18 11:06 16:16 21:07 POC Glucose (mg/dL) 342 H 351 H 359 H
--- NOTE | 2018-04-08 21:36 | CP.PCM.PN ---
Subjective - Date & Time of Evaluation Date of Evaluation: 04/08/18 Time of Evaluation: 01:00 - Subjective Subjective: dictated Objective - Vital Signs/Intake and Output Vital Signs (last 24 hours): Temp Pulse Resp BP Pulse Ox 99.1 F 70 12 109/72 96 04/08/18 16:00 04/08/18 20:14 04/08/18 20:14 04/08/18 20:14 04/08/18 20:14 Intake and Output: 04/08/18 04/09/18 18:59 06:59 Intake Total 2230 Output Total 1360 480 Balance 870 -480 - Medications Medications: Current Medications Albuterol/Ipratropium (Duoneb 3 Mg/0.5 Mg (3 Ml) Ud) 3 ml INH RQ4 [facility] Last Admin: 04/08/18 19:11 Dose: 3 ml Enoxaparin Sodium (Lovenox) 30 mg SC DAILY [facility] Last Admin: 04/08/18 10:17 Dose: 30 mg Gabapentin (Neurontin) 800 mg PO TID [facility] Last Admin: 04/08/18 20:39 Dose: 800 mg Amikacin Sulfate 500 mg/ (Sodium Chloride) 100 mls @ 100 mls/hr IVPB Q8H [facility]; Protocol Last Admin: 04/08/18 17:10 Dose: 100 mls/hr Insulin Glargine (Lantus) 24 unit SC [facility] Last Admin: 04/07/18 22:28 Dose: 24 unit Insulin Human Regular (Novolin R) 0 unit SC [facility]; Protocol Last Admin: 04/08/18 17:09 Dose: 8 units Methylprednisolone (Solu-Medrol) 80 mg IVP Q8H [facility] Last Admin: 04/08/18 20:48 Dose: 80 mg Montelukast Sodium (Singulair) 10 mg PO HS [facility] Last Admin: 04/07/18 22:26 Dose: 10 mg Oxycodone/Acetaminophen (Percocet 5/325 Mg Tab) 2 tab PO Q6H PRN PRN Reason: Pain, moderate (4-7) Stop: 04/09/18 04:24 Last Admin: 04/08/18 06:33 Dose: 2 tab Pantoprazole Sodium (Protonix Ec Tab) 40 mg PO DAILY [facility] Last Admin: 04/08/18 10:17 Dose: 40 mg Quetiapine Fumarate (Seroquel) 400 mg PO BID [facility] Last Admin: 04/08/18 17:13 Dose: 400 mg Trazodone HCl (Desyrel) 150 mg PO [facility] Last Admin: 04/07/18 22:25 Dose: 150 mg - Labs Labs: 04/07/18 06:25 04/07/18 06:25 PT 10.9 SECONDS (9.7-12.2) 04/06/18 00:44 INR 1.0 04/06/18 00:44 APTT 35 SECONDS (21-34) H 04/06/18 00:44
[2018-04-08] MEDS: (Lantus) Insulin Glargine, Recombinant SC SCH (22:33)
[2018-04-09] MEDS: Albuterol-Ipratrop 3 mg / 0.5 (3 ml) UD INH SCH ×5 (03:40→19:07)
[2018-04-09] MEDS: MethylPREDNISolone 40 mg Vial IVP SCH ×3 (05:54→21:18)
[2018-04-09] MEDS ORDERED: HYDROmorphone 0.5 mg/0.5 ml ISec IVP STA (08:43)
[2018-04-09] MEDS: (Novolin R) Insulin Human Regular 100 units/ml vial SC SCH ×4 (09:01→21:16)
--- NOTE | 2018-04-09 10:44 | RAD ---
Date of service: 04/09/2018 HISTORY: trach tube placement COMPARISON: 04/06/2018 FINDINGS: LUNGS: Thread-like atelectasis and/or fibrosis left mid and lower lung zone. No dense consolidation. Right perihilar opacity less conspicuous here some interval improved aeration is inferred. Tracheostomy tube tip level of clavicles-tracheostomy tube appears changed PLEURA: No significant pleural effusion identified, no pneumothorax apparent. CARDIOVASCULAR: There is presence of aortic atherosclerotic calcification on x-ray. Cardiomegaly-similar mild pulmonary venous congestion present similar and/or slightly decreased since prior exam. OSSEOUS STRUCTURES: Thoracic spondylosis. VISUALIZED UPPER ABDOMEN: Normal. OTHER FINDINGS: None. IMPRESSION: Interval tracheostomy tube type appears changed-correlate clinically tip position at superior clavicle cortical margin-level appears similar probable interval improvement/partial clearance/partial improved aeration of the prior right perihilar soft tissue opacity Other findings as above. Continued follow-up and clinical correlation recommended.
[2018-04-09] MEDS: Enoxaparin 30 mg Syringe SC SCH (11:21)
[2018-04-09] MEDS: Pantoprazole 40 mg EC Tab PO SCH (11:21)
[2018-04-09] MEDS ORDERED: HYDROmorphone 0.5 mg/0.5 ml ISec IVP ONE (14:30)
--- NOTE | 2018-04-09 17:47 | CP.PCM.PN ---
Subjective - Date & Time of Evaluation Date of Evaluation: 04/09/18 Time of Evaluation: 13:00 - Subjective Subjective: Patient seen and examined in the intensive care unit Tracheostomy tube changed without any complication Patient is awake and responsive and in no respiratory distress Afebrile Thick secretions through the ET tube Objective - Vital Signs/Intake and Output Vital Signs (last 24 hours): Temp Pulse Resp BP Pulse Ox 97.6 F 62 20 159/77 H 96 04/09/18 12:00 04/09/18 16:00 04/09/18 16:00 04/09/18 12:16 04/09/18 16:00 Intake and Output: 04/09/18 04/09/18 06:59 18:59 Intake Total 1020 Output Total 480 1400 Balance -480 -380 - Medications Medications: Current Medications Albuterol/Ipratropium (Duoneb 3 Mg/0.5 Mg (3 Ml) Ud) 3 ml INH RQ4 [facility] Last Admin: 04/09/18 15:40 Dose: 3 ml Enoxaparin Sodium (Lovenox) 30 mg SC DAILY [facility] Last Admin: 04/09/18 11:21 Dose: 30 mg Gabapentin (Neurontin) 800 mg PO TID [facility] Last Admin: 04/09/18 13:59 Dose: 800 mg Amikacin Sulfate 500 mg/ (Sodium Chloride) 100 mls @ 100 mls/hr IVPB Q8H [facility]; Protocol Last Admin: 04/09/18 16:46 Dose: 100 mls/hr Insulin Glargine (Lantus) 24 unit SC HS [facility] Last Admin: 04/08/18 22:33 Dose: 24 unit Insulin Human Regular (Novolin R) 0 unit SC ACHS [facility]; Protocol Last Admin: 04/09/18 16:44 Dose: 8 units Methylprednisolone (Solu-Medrol) 80 mg IVP Q8H [facility] Last Admin: 04/09/18 14:00 Dose: 80 mg Montelukast Sodium (Singulair) 10 mg PO HS [facility] Last Admin: 04/08/18 22:32 Dose: 10 mg Pantoprazole Sodium (Protonix Ec Tab) 40 mg PO DAILY [facility] Last Admin: 04/09/18 11:21 Dose: 40 mg Quetiapine Fumarate (Seroquel) 400 mg PO BID [facility] Last Admin: 04/09/18 11:21 Dose: 400 mg Trazodone HCl (Desyrel) 150 mg PO HS [facility] Last Admin: 04/08/18 22:32 Dose: 150 mg - Labs Labs: 04/07/18 06:25 04/07/18 06:25 PT 10.9 SECONDS (9.7-12.2) 04/06/18 00:44 INR 1.0 04/06/18 00:44 APTT 35 SECONDS (21-34) H 04/06/18 00:44 - Head Exam Head Exam: ATRAUMATIC, NORMOCEPHALIC - ENT Exam ENT Exam: Mucous Membranes Moist - Neck Exam Neck Exam: Normal Inspection - Respiratory Exam Respiratory Exam: Rhonchi, Wheezes - Cardiovascular Exam Cardiovascular Exam: REGULAR RHYTHM - GI/Abdominal Exam GI & Abdominal Exam: Soft Assessment and Plan (1) COPD exacerbation Assessment & Plan: Continue antibiotics Taper steroids Nebulizer treatment Tracheostomy care Status: Acute (2) Tracheostomy dependence Status: Acute (3) Tracheobronchitis Status: Acute
[2018-04-09] MEDS: HYDROmorphone 0.5 mg/0.5 ml ISec IVP PRN (18:44)
[2018-04-09] MEDS: (Lantus) Insulin Glargine, Recombinant SC SCH (21:17)
--- NOTE | 2018-04-09 23:11 | CP.PCM.PN ---
Subjective - Date & Time of Evaluation Date of Evaluation: 04/09/18 Time of Evaluation: 07:40 - Subjective Subjective: dictated Objective - Vital Signs/Intake and Output Vital Signs (last 24 hours): Temp Pulse Resp BP Pulse Ox 98.1 F 76 20 126/74 95 04/09/18 18:00 04/09/18 19:47 04/09/18 18:00 04/09/18 18:00 04/09/18 18:00 Intake and Output: 04/09/18 04/10/18 18:59 06:59 Intake Total 1020 Output Total 1400 Balance -380 - Medications Medications: Current Medications Albuterol/Ipratropium (Duoneb 3 Mg/0.5 Mg (3 Ml) Ud) 3 ml INH RQ4 [facility] Last Admin: 04/09/18 19:07 Dose: 3 ml Enoxaparin Sodium (Lovenox) 30 mg SC DAILY [facility] Last Admin: 04/09/18 11:21 Dose: 30 mg Gabapentin (Neurontin) 800 mg PO TID [facility] Last Admin: 04/09/18 18:46 Dose: 800 mg Hydromorphone HCl (Dilaudid) 0.5 mg IVP Q4H PRN PRN Reason: Pain, severe (8-10) Last Admin: 04/09/18 18:44 Dose: 0.5 mg Amikacin Sulfate 500 mg/ (Sodium Chloride) 100 mls @ 100 mls/hr IVPB Q8H [facility]; Protocol Last Admin: 04/09/18 16:46 Dose: 100 mls/hr Insulin Glargine (Lantus) 24 unit SC [facility] Last Admin: 04/09/18 21:17 Dose: 24 unit Insulin Human Regular (Novolin R) 0 unit SC [facility]; Protocol Last Admin: 04/09/18 21:16 Dose: 4 units Methylprednisolone (Solu-Medrol) 80 mg IVP Q8H [facility] Last Admin: 04/09/18 21:18 Dose: 80 mg Montelukast Sodium (Singulair) 10 mg PO HS [facility] Last Admin: 04/09/18 21:16 Dose: 10 mg Pantoprazole Sodium (Protonix Ec Tab) 40 mg PO DAILY [facility] Last Admin: 04/09/18 11:21 Dose: 40 mg Quetiapine Fumarate (Seroquel) 400 mg PO BID [facility] Last Admin: 04/09/18 18:40 Dose: 400 mg Trazodone HCl (Desyrel) 150 mg PO HS [facility] Last Admin: 04/09/18 21:16 Dose: 150 mg - Labs Labs: 04/07/18 06:25 04/07/18 06:25 PT 10.9 SECONDS (9.7-12.2) 04/06/18 00:44 INR 1.0 04/06/18 00:44 APTT 35 SECONDS (21-34) H 04/06/18 00:44
[2018-04-10] MEDS: Albuterol-Ipratrop 3 mg / 0.5 (3 ml) UD INH SCH ×6 (01:20→19:53)
[2018-04-10] MEDS: HYDROmorphone 0.5 mg/0.5 ml ISec IVP PRN ×4 (03:23→21:27)
--- NOTE | 2018-04-10 03:44 | PN ---
DATE: 04/09/2018 SUBJECTIVE: The patient is afebrile, less cough, less shortness of breath, less wheezing, thick sputum production, status post tracheostomy tube. PHYSICAL EXAMINATION: VITAL SIGNS: Blood pressure 126/74, pulse 67, respiratory rate 20, and temperature 98.1. LUNGS: Decreased air entry. Positive rhonchi. Positive rales. CARDIOVASCULAR SYSTEM: S1 and S2 regular. ABDOMEN: Soft. ASSESSMENT: 1. Tracheobronchitis with recurrent infection from tracheostomy. 2. Exacerbation of bronchial asthma. 3. Hypertension. 4. Type 2 diabetes. PLAN: Solu-Medrol taper. Antibiotics. AccuChek sliding scale. Blood work in a.m. Ad Khan MD
[2018-04-10] MEDS: MethylPREDNISolone 40 mg Vial IVP SCH ×3 (05:08→21:27)
[2018-04-10] MEDS: (Novolin R) Insulin Human Regular 100 units/ml vial SC SCH ×4 (08:45→21:29)
[2018-04-10] MEDS: Enoxaparin 30 mg Syringe SC SCH (09:46)
[2018-04-10] MEDS: Pantoprazole 40 mg EC Tab PO SCH (09:47)
[2018-04-10] MEDS ORDERED: Piperacillin/Tazobact 3.375 GM in Sodium Chloride 100 ML IVPB SCH (10:30)
--- NOTE | 2018-04-10 10:59 | CP.PCM.PN ---
Subjective - Date & Time of Evaluation Date of Evaluation: 04/09/18 Time of Evaluation: 20:35 - Subjective Subjective: Patient seen and evaluated Denies chest pain Improved breathing Physical Exam - Constitutional Appears: Non-toxic - Respiratory Exam Respiratory Exam: NORMAL BREATHING PATTERN Additional comments: With tracheostomy - Cardiovascular Exam Cardiovascular Exam: REGULAR RHYTHM, +S1, +S2 - GI/Abdominal Exam GI & Abdominal Exam: Normal Bowel Sounds - Extremities Exam Extremities exam: Negative for: pedal edema Assessment & Plan (1) Respiratory distress Assessment and Plan: Patient is a 62 year old female with history of COPD, HTN, CHF, sp tracheostomy who presented for 3 day history of shortness of breath associated with fever, bodyaches Imaging/ Labs: Chest X-ray: Tracheostomy tube. Right-sided PICC. Cardiomegaly. Evidence of multifocal pneumonia Chest CT: Multifocal infiltrates. No evidence of mucous plugging. Mild mediastinal lymphadenopathy. Mild cardiomegaly. Multiple old vertebral compression fractures. Mild hepatosplenomegaly. Tracheostomy noted. Echocardiogram (04/28/17): Mild concentric left ventricular hypertrophy. LV function is normal. LV EF is within normal range. Normal LV segmental wall motion. Aortic valve is moderately calcified and possibly bicuspied, Moderate valvular aortic stenosis Troponin negative X1 Medications: - Acetylcysteine 4ml INH Q6H - Duonebs 3ML INH RQ4H - Azithromycin 500mg IV Q24H - Meropenem 1gm IV Q8H - Vanco 1gm IV Q12H - Singulair 10mg PO HS - Robitussin 200mg PO Q4H PRN Objective - Vital Signs/Intake and Output Vital Signs (last 24 hours): Temp Pulse Resp BP Pulse Ox 98.5 F 82 20 119/78 97 04/10/18 08:27 04/10/18 08:44 04/10/18 08:44 04/10/18 08:44 04/10/18 08:27 - Medications Medications: Current Medications Albuterol/Ipratropium (Duoneb 3 Mg/0.5 Mg (3 Ml) Ud) 3 ml INH RQ4 [facility] Last Admin: 04/10/18 07:15 Dose: 3 ml Enoxaparin Sodium (Lovenox) 30 mg SC DAILY [facility] Last Admin: 04/10/18 09:46 Dose: 30 mg Gabapentin (Neurontin) 800 mg PO TID [facility] Last Admin: 04/10/18 09:47 Dose: 800 mg Hydromorphone HCl (Dilaudid) 0.5 mg IVP Q4H PRN PRN Reason: Pain, severe (8-10) Last Admin: 04/10/18 08:46 Dose: 0.5 mg Piperacillin Sod/Tazobactam (Sod 3.375 gm/ Sodium Chloride) 100 mls @ 200 mls/h r IVPB Q6H [facility]; Protocol Insulin Glargine (Lantus) 24 unit SC HS [facility] Last Admin: 04/09/18 21:17 Dose: 24 unit Insulin Human Regular (Novolin R) 0 unit SC ACHS [facility]; Protocol Last Admin: 04/10/18 08:45 Dose: 3 units Methylprednisolone (Solu-Medrol) 60 mg IVP Q12 [facility] Montelukast Sodium (Singulair) 10 mg PO HS [facility] Last Admin: 04/09/18 21:16 Dose: 10 mg Pantoprazole Sodium (Protonix Ec Tab) 40 mg PO DAILY [facility] Last Admin: 04/10/18 09:47 Dose: 40 mg Quetiapine Fumarate (Seroquel) 400 mg PO BID [facility] Last Admin: 04/10/18 09:47 Dose: 400 mg Trazodone HCl (Desyrel) 150 mg PO HS [facility] Last Admin: 04/09/18 21:16 Dose: 150 mg - Labs Labs: 04/07/18 06:25 04/07/18 06:25 PT 10.9 SECONDS (9.7-12.2) 04/06/18 00:44 INR 1.0 04/06/18 00:44 APTT 35 SECONDS (21-34) H 04/06/18 00:44
[2018-04-10 12:09] LABS: BLOOD UREA NITROGEN 26 mg/dL (7-17); GFR NON-AFRICAN AMERICAN > 60
--- NOTE | 2018-04-10 14:07 | CP.PCM.CON ---
History of Present Illness - History of Present Illness History of Present Illness: INFECTIOUS DISEASE CONSULT; HPI; 62 year old female with h/o COPD, tracheostomy, CHF, HTN, DM, Sleep apnea sy ndrome,siezure disorder,anxiety ,depression presents to the ED c/o congestion , SOB and fever at home. Patient has had numerous intubations in the past. Patient is s/p tracheostomy. Patient denies nausea, vomit, CP, palpitations. She was discharged from [facility] just recently on 03/30/18. presently complaining of thick greenish secretions from her tracheostomy site. Also complains off pain throat. Patient was evaluated by ENT last admission and pain was attributed as a muscular pain by ENT as it was all around her neck. Patient well known to me, was admitted in November, and had bronchoscopy done. Bronchial washings were positive for Proteus mirabilis sensitive to Merr em and resistant to quinolones. Patient had tolerated IV Merrem in the past without any reaction. Patient is presently being treated with IV amikacin 5OOMG IV Q8HRLY PER PULMONARY. PT HAD TRACHEOSTOMY CHANGED 04/09/18. Infectious disease consultation requested by PMD for RT SIDED INFILTRATE / exascerbation of COPD/AND BRONCHOPULMONARY INFECTION WITH FEVERS. PMH: Anxiety, Asthma, Bipolar Disorder, Bronchitis, CHF, COPD, Depression, Emphysema, Gall Bladder Disease, HTN, Pneumonia, Seizures, Sleep Apnea Surgical History: Appendectomy, Cholecystectomy Family History: States: Unknown Family Hx - Social History Hx Tobacco Use: No Hx Alcohol Use: No Hx Substance Use: No - Immunization History Hx Tetanus Toxoid Vaccination: No Hx Influenza Vaccination: No Hx Pneumococcal Vaccination: No ROS; ALL systems REVIEWED.NO CHANGE EXCEPT PER HPI. ALLERGY; ASPIRIN, CEFTRIAXONE, BUT HAS TOLERATED MERREM IN THE PAST.ALSO TOLERATED AZACTAM. IODINE, IBUPROFEN AND FAZAL. Past Patient History - Infectious Disease Hx of Infectious Diseases: None - Tetanus Immunizations Tetanus Immunization: Unknown - Past Medical History & Family History Past Medical History?: Yes - Past Social History Smoking Status: Unknown If Ever Smoked - CARDIAC Hx Cardia Arrhythmia: Yes Hx Congestive Heart Failure: Yes Hx Hypercholesterolemia: No Hx Hypertension: Yes Hx Pacemaker: No - PULMONARY Hx Asthma: Yes Hx Bronchitis: Yes Hx Chronic Obstructive Pulmonary Disease (COPD): Yes Hx Emphysema: Yes Hx Pneumonia: Yes Hx Respiratory Tract Infection: Yes Hx Sleep Apnea: Yes - NEUROLOGICAL Hx Seizures: Yes - HEENT Hx HEENT Problems: Yes Hx Cataracts: Yes - RENAL Hx Chronic Kidney Disease: No - ENDOCRINE/METABOLIC Hx Hypothyroidism: No - HEMATOLOGICAL/ONCOLOGICAL Hx Human Immunodeficiency Virus (HIV): No - INTEGUMENTARY Hx Dermatological Problems: No - MUSCULOSKELETAL/RHEUMATOLOGICAL Hx Arthritis: No Hx Falls: No Hx Rheumatoid Arthritis: No - GASTROINTESTINAL Hx Gall Bladder Disease: Yes - GENITOURINARY/GYNECOLOGICAL Hx Sexually Transmitted Disorders: No - PSYCHIATRIC Hx Anxiety: Yes Hx Bipolar Disorder: Yes Hx Depression: Yes Hx Substance Use: No - SURGICAL HISTORY Hx Appendectomy: Yes Hx Cholecystectomy: Yes - ANESTHESIA Hx Anesthesia: Yes Hx Anesthesia Reactions: No Hx Malignant Hyperthermia: No Meds Allergies/Adverse Reactions: Allergies Allergy/AdvReac Type Severity Reaction Status Date / Time aspirin Allergy ANAPHYLAXIS Verified 04/05/18 23:11 ceftriaxone sodium Allergy ANAPHYLAXIS Verified 04/05/18 23:11 [From Rocephin] ibuprofen [From Motrin] Allergy ANAPHYLAXIS Verified 04/05/18 23:11 iodine Allergy ANAPHYLAXIS Verified 04/05/18 23:11 raspberry Allergy ANAPHYLAXIS Verified 04/05/18 23:11 - Medications Medications: Current Medications Albuterol/Ipratropium (Duoneb 3 Mg/0.5 Mg (3 Ml) Ud) 3 ml INH RQ4 [facility] Last Admin: 04/10/18 11:15 Dose: 3 ml Enoxaparin Sodium (Lovenox) 30 mg SC DAILY [facility] Last Admin: 04/10/18 09:46 Dose: 30 mg Gabapentin (Neurontin) 800 mg PO TID [facility] Last Admin: 04/10/18 09:47 Dose: 800 mg Hydromorphone HCl (Dilaudid) 0.5 mg IVP Q4H PRN PRN Reason: Pain, severe (8-10) Last Admin: 04/10/18 08:46 Dose: 0.5 mg Meropenem 1 gm/ Sodium (Chloride) 100 mls @ 100 mls/hr IVPB Q8H [facility]; Protocol Insulin Glargine (Lantus) 24 unit SC HS [facility] Last Admin: 04/09/18 21:17 Dose: 24 unit Insulin Human Regular (Novolin R) 0 unit SC ACHS [facility]; Protocol Last Admin: 04/10/18 12:47 Dose: 4 units Methylprednisolone (Solu-Medrol) 60 mg IVP Q12 [facility] Last Admin: 04/10/18 12:48 Dose: 60 mg Montelukast Sodium (Singulair) 10 mg PO [facility] Last Admin: 04/09/18 21:16 Dose: 10 mg Pantoprazole Sodium (Protonix Ec Tab) 40 mg PO DAILY [facility] Last Admin: 04/10/18 09:47 Dose: 40 mg Quetiapine Fumarate (Seroquel) 400 mg PO BID [facility] Last Admin: 04/10/18 09:47 Dose: 400 mg Trazodone HCl (Desyrel) 150 mg PO [facility] Last Admin: 04/09/18 21:16 Dose: 150 mg Physical Exam - Constitutional Appears: No Acute Distress - Head Exam Head Exam: NORMAL INSPECTION - Eye Exam Eye Exam: EOMI, PERRL - ENT Exam ENT Exam: Mucous Membranes Moist (TRACH IN PLACE.), Normal Oropharynx - Neck Exam Neck exam: Positive for: Normal Inspection - Respiratory Exam Respiratory Exam: Prolonged Expiratory Phase, Rhonchi - Cardiovascular Exam Cardiovascular Exam: REGULAR RHYTHM, +S1, +S2 - GI/Abdominal Exam GI & Abdominal Exam: Normal Bowel Sounds, Soft - Extremities Exam Extremities exam: Positive for: pedal edema, pedal pulses present. Negative for: calf tenderness - Neurological Exam Neurological exam: Alert, CN II-XII Intact, Normal Gait, Oriented x3, Reflexes Normal - Psychiatric Exam Psychiatric exam: Normal Mood - Skin Skin Exam: Normal Color, Warm Results - Vital Signs Recent Vital Signs: Last Vital Signs Temp 98.5 F 04/10/18 08:27 Pulse 82 04/10/18 08:44 Resp 20 04/10/18 08:44 BP 119/78 04/10/18 08:44 Pulse Ox 97 04/10/18 08:27 - Labs Result Diagrams: 04/07/18 06:25 04/10/18 11:41 Labs: Laboratory Results - last 24 hr 04/09/18 04/09/18 04/09/18 11:29 16:11 21:08 Sodium Potassium Chloride Carbon Dioxide Anion Gap BUN Creatinine Est GFR ( Amer) Est GFR (Non-Af Amer) POC Glucose (mg/dL) 460 H* 371 H 437 H* Random Glucose Calcium 04/10/18 04/10/18 04/10/18 01:51 06:12 11:01 Sodium Potassium Chloride Carbon Dioxide Anion Gap BUN Creatinine Est GFR ( Amer) Est GFR (Non-Af Amer) POC Glucose (mg/dL) 333 H 236 H 256 H Random Glucose Calcium 04/10/18 11:41 Sodium 138 Potassium 4.0 Chloride 100 Carbon Dioxide 30 Anion Gap 12 BUN 26 H Creatinine 0.9 Est GFR ( Amer) > 60 Est GFR (Non-Af Amer) > 60 POC Glucose (mg/dL) Random Glucose 245 H D Calcium 9.0 - Imaging and Cardiology Chest x-ray Status: Report reviewed by me (chest x-ray 04/06/18 Right perihilar infiltrate atelectasis.) Assessment & Plan (1) Pneumonia Status: Acute (2) COPD exacerbation Status: Acute (3) Respiratory distress Status: Acute (4) Tracheostomy dependence Status: Acute (5) Sleep apnea syndrome Status: Acute - Assessment and Plan (Free Text) Plan: CONTINUE IV MERREM 1GM IVPB Q 8HRLY 04/10/18 MRSA SCREEN F/U CXR. CONTACT ISOLATION PULMONARY TOILET /DUONEB TREATMENTS. CONTINUE SOLUMEDROL PER PULMONARY. PER CONSULTANTS.
[2018-04-10] MEDS: Meropenem 1 GM in Sodium Chloride 0.9% 100 ML IVPB SCH (17:52)
--- NOTE | 2018-04-10 18:55 | CP.PCM.PN ---
Subjective - Date & Time of Evaluation Date of Evaluation: 04/10/18 Time of Evaluation: 13:00 - Subjective Subjective: Patient seen and examined at bedside Patient is awake and responsive She gestures that she has a lot of swelling/tenderness around the tracheostomy She is afebrile Thick sections through ET tube Physical Exam Gen: AAOx3, no acute distress Cardio: RRR, no murmur Pulm: Ronchi bilaterally A/P COPD -taper steroid -continue nebulizer treatment Tracheostomy -continue tracheostomy care -chest xray on 04/09/18 showed interval tracheostomy tube tip position at superior clavicle, partial improved aeration of the prior right perihilar soft tissue opacity Tracheobronchitis -continue antibiotics Objective - Vital Signs/Intake and Output Vital Signs (last 24 hours): Temp Pulse Resp BP Pulse Ox 98.4 F 76 20 104/67 95 04/10/18 16:35 04/10/18 16:35 04/10/18 16:35 04/10/18 16:35 04/10/18 16:35 Intake and Output: 04/10/18 04/10/18 06:59 18:59 Intake Total 460 Balance 460 - Medications Medications: Current Medications Albuterol/Ipratropium (Duoneb 3 Mg/0.5 Mg (3 Ml) Ud) 3 ml INH RQ4 [facility] Last Admin: 04/10/18 11:15 Dose: 3 ml Enoxaparin Sodium (Lovenox) 30 mg SC DAILY [facility] Last Admin: 04/10/18 09:46 Dose: 30 mg Gabapentin (Neurontin) 800 mg PO TID [facility] Last Admin: 04/10/18 17:52 Dose: 800 mg Hydromorphone HCl (Dilaudid) 0.5 mg IVP Q4H PRN PRN Reason: Pain, severe (8-10) Last Admin: 04/10/18 14:45 Dose: 0.5 mg Meropenem 1 gm/ Sodium (Chloride) 100 mls @ 66.667 mls/hr IVPB Q8H [facility]; Protocol Last Admin: 04/10/18 17:52 Dose: 66.667 mls/hr Insulin Glargine (Lantus) 24 unit SC HS [facility] Last Admin: 04/09/18 21:17 Dose: 24 unit Insulin Human Regular (Novolin R) 0 unit SC ACHS [facility]; Protocol Last Admin: 04/10/18 17:52 Dose: 6 units Methylprednisolone (Solu-Medrol) 60 mg IVP Q12 [facility] Last Admin: 04/10/18 12:48 Dose: 60 mg Montelukast Sodium (Singulair) 10 mg PO HS [facility] Last Admin: 04/09/18 21:16 Dose: 10 mg Pantoprazole Sodium (Protonix Ec Tab) 40 mg PO DAILY [facility] Last Admin: 04/10/18 09:47 Dose: 40 mg Quetiapine Fumarate (Seroquel) 400 mg PO BID [facility] Last Admin: 04/10/18 17:52 Dose: 400 mg Trazodone HCl (Desyrel) 150 mg PO HS [facility] Last Admin: 04/09/18 21:16 Dose: 150 mg - Labs Labs: 04/07/18 06:25 04/10/18 11:41 PT 10.9 SECONDS (9.7-12.2) 04/06/18 00:44 INR 1.0 04/06/18 00:44 APTT 35 SECONDS (21-34) H 04/06/18 00:44 Assessment and Plan (1) COPD exacerbation Status: Acute (2) Tracheostomy dependence Status: Acute (3) Tracheobronchitis Status: Acute
[2018-04-10] MEDS: (Lantus) Insulin Glargine, Recombinant SC SCH (21:28)
--- NOTE | 2018-04-10 21:42 | CP.PCM.PN ---
Subjective - Date & Time of Evaluation Date of Evaluation: 04/10/18 Time of Evaluation: 08:41 - Subjective Subjective: dictated Objective - Vital Signs/Intake and Output Vital Signs (last 24 hours): Temp Pulse Resp BP Pulse Ox 98.4 F 76 20 104/67 95 04/10/18 16:35 04/10/18 16:35 04/10/18 16:35 04/10/18 16:35 04/10/18 16:35 Intake and Output: 04/10/18 04/11/18 18:59 06:59 Intake Total 460 600 Balance 460 600 - Medications Medications: Current Medications Albuterol/Ipratropium (Duoneb 3 Mg/0.5 Mg (3 Ml) Ud) 3 ml INH RQ4 [facility] Last Admin: 04/10/18 19:53 Dose: 3 ml Enoxaparin Sodium (Lovenox) 30 mg SC DAILY [facility] Last Admin: 04/10/18 09:46 Dose: 30 mg Gabapentin (Neurontin) 800 mg PO TID [facility] Last Admin: 04/10/18 17:52 Dose: 800 mg Hydromorphone HCl (Dilaudid) 0.5 mg IVP Q4H PRN PRN Reason: Pain, severe (8-10) Last Admin: 04/10/18 21:27 Dose: 0.5 mg Meropenem 1 gm/ Sodium (Chloride) 100 mls @ 66.667 mls/hr IVPB Q8H [facility]; Protocol Last Admin: 04/10/18 17:52 Dose: 66.667 mls/hr Insulin Glargine (Lantus) 24 unit SC [facility] Last Admin: 04/10/18 21:28 Dose: 24 unit Insulin Human Regular (Novolin R) 0 unit SC [facility]; Protocol Last Admin: 04/10/18 21:29 Dose: 10 units Methylprednisolone (Solu-Medrol) 60 mg IVP Q12 [facility] Last Admin: 04/10/18 21:27 Dose: 60 mg Montelukast Sodium (Singulair) 10 mg PO HS [facility] Last Admin: 04/10/18 21:34 Dose: Not Given Pantoprazole Sodium (Protonix Ec Tab) 40 mg PO DAILY [facility] Last Admin: 04/10/18 09:47 Dose: 40 mg Quetiapine Fumarate (Seroquel) 400 mg PO BID [facility] Last Admin: 04/10/18 17:52 Dose: 400 mg Trazodone HCl (Desyrel) 150 mg PO HS [facility] Last Admin: 04/10/18 21:33 Dose: Not Given - Labs Labs: 04/07/18 06:25 04/10/18 11:41 PT 10.9 SECONDS (9.7-12.2) 04/06/18 00:44 INR 1.0 04/06/18 00:44 APTT 35 SECONDS (21-34) H 04/06/18 00:44
[2018-04-11] MEDS: Meropenem 1 GM in Sodium Chloride 0.9% 100 ML IVPB SCH ×3 (00:33→17:36)
[2018-04-11] MEDS: HYDROmorphone 0.5 mg/0.5 ml ISec IVP PRN ×5 (01:33→22:02)
[2018-04-11] MEDS: Albuterol-Ipratrop 3 mg / 0.5 (3 ml) UD INH SCH ×6 (03:55→23:45)
[2018-04-11 07:12] LABS: BASO # 0.1 K/uL (0.0-0.2); BASO % 0.5 % (0.0-2.0); EOS % 0.3 % (0.0-4.0); HEMOGLOBIN 11.6 g/dL (11.0-16.0); LYMPH # 0.9 K/uL (1.0-4.3); LYMPH % 6.9 % (20.0-40.0); MEAN CELL VOLUME 79.9 fL (81.0-99.0); MEAN CORPUSCULAR HEMOGLOBIN 25.2 pg (27.0-31.0); MEAN CORPUSCULAR HGB CONC 31.5 g/dL (33.0-37.0); MEAN PLATELET VOLUME 8.7 fL (7.2-11.7); MONO # 0.5 K/uL (0.0-0.8); NEUT # 11.7 K/uL (1.8-7.0); NEUT % 88.3 % (50.0-75.0); PLATELET COUNT 140 K/uL (130-400); RBC 4.62 Mil/uL (3.80-5.20); WHITE BLOOD COUNT 13.2 K/uL (4.8-10.8)
[2018-04-11 07:23] LABS: BLOOD UREA NITROGEN 25 mg/dL (7-17); CALCIUM 9.2 mg/dl (8.6-10.4); GFR NON-AFRICAN AMERICAN > 60
[2018-04-11] MEDS: (Novolin R) Insulin Human Regular 100 units/ml vial SC SCH ×4 (08:50→22:29)
[2018-04-11] MEDS ORDERED: Albuterol-Ipratrop 3 mg / 0.5 (3 ml) UD INH STA (08:51)
[2018-04-11] MEDS ORDERED: Racepinephrine 2.25% Inhal Soln 0.5 ML UD INH ONE (08:53)
[2018-04-11] MEDS ORDERED: Acetylcysteine 20% Inhal Soln (4ml) INH STA (09:00)
[2018-04-11] MEDS ORDERED: Acetylcysteine 20% Inhal Soln (4ml) ONE (09:04)
[2018-04-11] MEDS: MethylPREDNISolone 40 mg Vial IVP SCH ×2 (09:48→22:31)
[2018-04-11] MEDS: Acetylcysteine 20% Inhal Soln (4ml) INH SCH ×5 (09:51→23:44)
[2018-04-11 10:17] LABS: ABG ALLEN TEST POS; ARTERIAL BLOOD GAS HCO3 31.8 mmol/L (21-28); ARTERIAL BLOOD GAS HEMOGLOBIN 12.6 g/dL (11.7-17.4); ARTERIAL BLOOD GAS O2 SAT 99.6 % (95-98); ARTERIAL BLOOD GAS PCO2 51 mm/Hg (35-45); ARTERIAL BLOOD GAS PH 7.44 (7.35-7.45); ARTERIAL BLOOD GAS PO2 215 mm/Hg (80-100); ARTERIAL BLOOD GAS TCO2 36.2 mmol/L (22-28)
--- NOTE | 2018-04-11 10:54 | RAD ---
Date of service: 04/11/2018 HISTORY: trach COMPARISON: 04/09/2018. FINDINGS: LUNGS: Improved aeration right lower lobe. PLEURA: No significant pleural effusion identified, no pneumothorax apparent. CARDIOVASCULAR: Atherosclerotic calcifications identified primarily aortic arch. No radiographic findings to suggest acute or significant cardiovascular disease. OSSEOUS STRUCTURES: No significant abnormalities. VISUALIZED UPPER ABDOMEN: Normal. OTHER FINDINGS: Stable, satisfactory position of tracheostomy device. IMPRESSION: No active pulmonary disease. Satisfactory/stable position of tracheostomy device.
[2018-04-11 11:01] LABS: BANDS 1 % (0-2); NEUTROPHIL 86 % (50-75); TOTAL CELLS COUNTED 100
[2018-04-11 11:02] LABS: ANISOCYTOSIS SLIGHT; LYMPHOCYTE 7 % (20-40); MONOCYTE 6 % (0-10); PLATELET ESTIMATE NORMAL (NORMAL)
[2018-04-11] MEDS: Enoxaparin 30 mg Syringe SC SCH (11:25)
[2018-04-11] MEDS: Pantoprazole 40 mg EC Tab PO SCH (11:26)
--- NOTE | 2018-04-11 14:16 | CP.PCM.PN ---
Subjective - Date & Time of Evaluation Date of Evaluation: 04/11/18 Time of Evaluation: 11:00 - Subjective Subjective: Patient seen and examined at bedside Patient is awake and responsive SURFACING MACHINE OPERATOR was called at 0850 for respiratory distress She signals that she still can not talk, has intense pain in her throat, and is having trouble breathing due to thick secretions occluding the trach She is afebrile with saturation at 95% During the rapid the ET tube was suctioned and cleaned revealing a large mucus plug. Physical Exam Gen: AAOx3, anxious Cardio: RRR, no murmur Pulm: Wheezing bilaterally A/P COPD -Duoneb Q4h -Mucinex 600mg BID -Solu-Medrol 60mg Q12 -Singulair 10mg -continue nebulizer treatment -Acetylcysteine 20% 4ml Q4h -ABG: pH 7.44, pO2 215, pCO2 51, base excess 8.9 Tracheostomy -continue tracheostomy care -Increase suctioning due to thick secretions -chest xray on 04/11/18 showed no active pulmonary disease and a stable position of tracheostomy device. -pain is still uncontrolled on .5 Dilaudid q4h. Consider increasing dose or pursuing a secondary form of pain management. -Consider ativan for anxiety Objective - Vital Signs/Intake and Output Vital Signs (last 24 hours): Temp Pulse Resp BP Pulse Ox 98.2 F 71 20 116/73 95 04/11/18 07:00 04/11/18 07:00 04/11/18 07:00 04/11/18 07:00 04/11/18 07:00 Intake and Output: 04/11/18 04/11/18 06:59 18:59 Intake Total 600 Balance 600 - Medications Medications: Current Medications Acetylcysteine (Acetylcysteine 20%) 4 ml INH RQ4 [facility] Last Admin: 04/11/18 09:51 Dose: 4 ml Albuterol/Ipratropium (Duoneb 3 Mg/0.5 Mg (3 Ml) Ud) 3 ml INH RQ4 [facility] Enoxaparin Sodium (Lovenox) 30 mg SC DAILY [facility] Last Admin: 04/11/18 11:25 Dose: 30 mg Gabapentin (Neurontin) 800 mg PO TID [facility] Last Admin: 04/11/18 11:26 Dose: 800 mg Guaifenesin (Mucinex La) 600 mg PO BID [facility] Hydromorphone HCl (Dilaudid) 0.5 mg IVP Q4H PRN PRN Reason: Pain, severe (8-10) Last Admin: 04/11/18 11:33 Dose: 0.5 mg Meropenem 1 gm/ Sodium (Chloride) 100 mls @ 66.667 mls/hr IVPB Q8H [facility]; Protocol Last Admin: 04/11/18 09:48 Dose: 66.667 mls/hr Insulin Glargine (Lantus) 24 unit SC HS [facility] Last Admin: 04/10/18 21:28 Dose: 24 unit Insulin Human Regular (Novolin R) 0 unit SC ACHS [facility]; Protocol Last Admin: 04/11/18 12:26 Dose: 2 units Methylprednisolone (Solu-Medrol) 60 mg IVP Q12 [facility] Last Admin: 04/11/18 09:48 Dose: 60 mg Montelukast Sodium (Singulair) 10 mg PO HS [facility] Last Admin: 04/10/18 21:34 Dose: Not Given Pantoprazole Sodium (Protonix Ec Tab) 40 mg PO DAILY [facility] Last Admin: 04/11/18 11:26 Dose: 40 mg Quetiapine Fumarate (Seroquel) 400 mg PO BID [facility] Last Admin: 04/11/18 11:38 Dose: 400 mg Trazodone HCl (Desyrel) 150 mg PO [facility] Last Admin: 04/10/18 21:33 Dose: Not Given - Labs Labs: 04/11/18 07:05 04/11/18 07:05 PT 10.9 SECONDS (9.7-12.2) 04/06/18 00:44 INR 1.0 04/06/18 00:44 APTT 35 SECONDS (21-34) H 04/06/18 00:44 Assessment and Plan (1) COPD exacerbation Status: Acute (2) Tracheostomy dependence Status: Acute (3) Tracheobronchitis Status: Acute
--- NOTE | 2018-04-11 16:30 | PCM.RRT ---
CHOIR TEACHER Nurses Assessment - Situation Date: 04/11/18 Time CHOIR TEACHER was called: 08:45 CHOIR TEACHER Responder Arrival Time:: 08:47 CHOIR TEACHER Location:: Med/Surg Room Number: 554 CHOIR TEACHER Reason for Call: Respiratory Distress CHOIR TEACHER Called By: RN - IV IV Inserted during CHOIR TEACHER?: No - Respiratory CHOIR TEACHER Delivery Method: Trach Collar @% Oxygen Flow Rate: 34 Received Nebulizer Treatments: Yes (racepinephrine) Was the Patient Ventilated with Bag/Mask 100% O2?: No Secretions Suctioned?: Yes Was the Patient Intubated?: No Was the Patient Placed on a Ventilator?: No - Ventilator Settings FIO2 (% Oxygen): 40 - Medication Medications Administered During CHOIR TEACHER: Ativan 1mg IVP - Diagnostic Test Ordered EKG: No Chest X-Ray: Yes CT Scan: No - Stat Labs Ordered CHOIR TEACHER Stat Labs Ordered: ABG CPR started during CHOIR TEACHER?: No - Vital Signs Vital Signs: Rapid Response Vital Sign Blood Pressure 138/78 Pulse Rate 101 Respiratory Rate 24 Temperature 98.4 F Oxygen Saturation 89 - Time CHOIR TEACHER Ended Time CHOIR TEACHER Ended: 09:39 - Vital Signs at end of CHOIR TEACHER Vital Signs at end of CHOIR TEACHER: Rapid Response End Vital Sign Blood Pressure 128/83 Pulse Rate 78 Respiratory Rate 20 Temperature 98.2 F O2 Sat by Pulse Oximetry 98 - Recommendations Notifications: Attending Physician I.Reason for CHOIR TEACHER - A) Acute Change in Patient: Subjective: House doctor note CHOIR TEACHER called at 08:47 for respiratory distress. Patient signals that she cannot talk, points to her trach collar, gesturing that it feels very restrictive and is having trouble breathing due to thick secretions occluding her trach collar. Initial vitals: BP 138/78, HR 101, RR 24, Temp 98.4, O2 sat 89% on trach collar. Duonebs w/ mucomyst, solumedrol, racemic epinephrine 2.5 x1 were all administered. Ativan 1 mg IVP ordered and given for underlying anxiety, xanax x1 ordered for administration 1 hour later. CPAP/PEP valve chest physiotherapy, ABG ordered. ET tube was suctioned and cleaned, revealing a large mucus plug. Duonebs q4h with mucomycst standing order given. Vitals at end of RR: BP 128/83, HR 78, RR 20, Temp 98.2, O2 sat 98%. Patient remains on floor. - Neurological Status (Select all that apply): Alert, Responsive, Oriented, Follows Commands - Respiratory Oxygen Delivery Method: Trach Collar @% Oxygen Flow Rate: 34 - Constitutional Appears: Non-toxic, In Acute Distress - Head Head Exam: ATRAUMATIC, NORMAL INSPECTION, NORMOCEPHALIC - Eyes Eye Exam: EOMI, Normal appearance - Respiratory Exam Respiratory Exam: Accessory Muscle Use, Respiratory Distress Additional comments: trach collar in place - Cardiovascular Exam Cardiovascular Exam: Tachycardia, +S1, +S2 - GI/Abdominal Exam GI & Abdominal Exam: Soft, Normal Bowel Sounds. absent: Distended, Firm, Guarding, Rigid, Tenderness - Neurological Exam Neurological Exam: Alert, Awake, Oriented x3 - Extremities Exam Extremities Exam: Normal Capillary Refill, Normal Inspection
[2018-04-11] MEDS: guaiFENesin 600 mg ER Tab PO SCH (17:36)
--- NOTE | 2018-04-11 20:22 | CP.PCM.PN ---
Subjective - Date & Time of Evaluation Date of Evaluation: 04/11/18 Time of Evaluation: 20:22 - Subjective Subjective: EVENTS NOTED, S/P RR THIS EVENING. EARLIER C/O THROAT PAIN. FEEL TRACHEOSTOMY TUBE BOTHERSOME CANT TALK +VE THICK SECRETIONS. LABS - SPUTUM +VE PROTEUS MIRABLIS S- MERREM Objective - Vital Signs/Intake and Output Vital Signs (last 24 hours): Temp Pulse Resp BP Pulse Ox 97.7 F 84 20 108/71 95 04/11/18 15:00 04/11/18 16:30 04/11/18 15:00 04/11/18 15:00 04/11/18 15:00 Intake and Output: 04/11/18 04/12/18 18:59 06:59 Intake Total 580 Balance 580 - Medications Medications: Current Medications Acetylcysteine (Acetylcysteine 20%) 4 ml INH RQ4 [facility] Last Admin: 04/11/18 20:02 Dose: 4 ml Albuterol/Ipratropium (Duoneb 3 Mg/0.5 Mg (3 Ml) Ud) 3 ml INH RQ4 [facility] Last Admin: 04/11/18 20:03 Dose: 3 ml Enoxaparin Sodium (Lovenox) 30 mg SC DAILY [facility] Last Admin: 04/11/18 11:25 Dose: 30 mg Gabapentin (Neurontin) 800 mg PO TID [facility] Last Admin: 04/11/18 17:36 Dose: 800 mg Guaifenesin (Mucinex La) 600 mg PO BID [facility] Last Admin: 04/11/18 17:36 Dose: 600 mg Hydromorphone HCl (Dilaudid) 0.5 mg IVP Q4H PRN PRN Reason: Pain, severe (8-10) Last Admin: 04/11/18 17:36 Dose: 0.5 mg Meropenem 1 gm/ Sodium (Chloride) 100 mls @ 66.667 mls/hr IVPB Q8H [facility]; Protocol Last Admin: 04/11/18 17:36 Dose: 66.667 mls/hr Insulin Glargine (Lantus) 24 unit SC HS [facility] Last Admin: 04/10/18 21:28 Dose: 24 unit Insulin Human Regular (Novolin R) 0 unit SC ACHS [facility]; Protocol Last Admin: 04/11/18 17:35 Dose: 6 units Methylprednisolone (Solu-Medrol) 60 mg IVP Q12 [facility] Last Admin: 04/11/18 09:48 Dose: 60 mg Montelukast Sodium (Singulair) 10 mg PO [facility] Last Admin: 04/10/18 21:34 Dose: Not Given Pantoprazole Sodium (Protonix Ec Tab) 40 mg PO DAILY [facility] Last Admin: 04/11/18 11:26 Dose: 40 mg Quetiapine Fumarate (Seroquel) 400 mg PO BID [facility] Last Admin: 04/11/18 11:38 Dose: 400 mg Trazodone HCl (Desyrel) 150 mg PO HS [facility] Last Admin: 04/10/18 21:33 Dose: Not Given - Labs Labs: 04/11/18 07:05 04/11/18 07:05 PT 10.9 SECONDS (9.7-12.2) 04/06/18 00:44 INR 1.0 04/06/18 00:44 APTT 35 SECONDS (21-34) H 04/06/18 00:44 - Constitutional Appears: No Acute Distress - Head Exam Head Exam: NORMAL INSPECTION - Eye Exam Eye Exam: EOMI, PERRL - ENT Exam ENT Exam: Mucous Membranes Moist (+VE TRACHEOSTOMY) - Neck Exam Neck Exam: Normal Inspection - Respiratory Exam Respiratory Exam: Prolonged Expiratory Phase, Rhonchi, NORMAL BREATHING PATTERN - Cardiovascular Exam Cardiovascular Exam: REGULAR RHYTHM, +S1, +S2 - GI/Abdominal Exam GI & Abdominal Exam: Soft, Normal Bowel Sounds - Extremities Exam Extremities Exam: Normal Capillary Refill, Pedal Edema. absent: Calf Tenderness - Neurological Exam Neurological Exam: Alert, Awake, CN II-XII Intact, Oriented x3 - Psychiatric Exam Psychiatric exam: Normal Mood - Skin Skin Exam: Normal Color, Warm Assessment and Plan (1) Pneumonia Status: Acute (2) Tracheobronchitis Status: Acute (3) COPD exacerbation Status: Acute (4) Respiratory distress Status: Acute (5) Tracheostomy dependence Status: Acute (6) Sleep apnea syndrome Status: Acute - Assessment and Plan (Free Text) Plan: CONTINUE IV MERREM 1GM IVPB Q 8HRLY 04/10/18 MRSA SCREEN-VE F/U CXR 04/11/18 NOTED - IMPROVED AERATION RLL. CONTACT ISOLATION PULMONARY TOILET /DUONEB TREATMENTS. CONTINUE SOLUMEDROL PER PULMONARY. CONSIDER CT NECK R/O MASS VS EDEMA LARYNX IF SYMPTOMS PERSIST.. PER CONSULTANTS.
--- NOTE | 2018-04-11 21:15 | CP.PCM.PN ---
Subjective - Date & Time of Evaluation Date of Evaluation: 04/11/18 Time of Evaluation: 07:20 - Subjective Subjective: dictated Objective - Vital Signs/Intake and Output Vital Signs (last 24 hours): Temp Pulse Resp BP Pulse Ox 97.7 F 84 20 108/71 95 04/11/18 15:00 04/11/18 16:30 04/11/18 15:00 04/11/18 15:00 04/11/18 15:00 Intake and Output: 04/11/18 04/12/18 18:59 06:59 Intake Total 580 Balance 580 - Medications Medications: Current Medications Acetylcysteine (Acetylcysteine 20%) 4 ml INH RQ4 [facility] Last Admin: 04/11/18 20:02 Dose: 4 ml Albuterol/Ipratropium (Duoneb 3 Mg/0.5 Mg (3 Ml) Ud) 3 ml INH RQ4 [facility] Last Admin: 04/11/18 20:03 Dose: 3 ml Enoxaparin Sodium (Lovenox) 30 mg SC DAILY [facility] Last Admin: 04/11/18 11:25 Dose: 30 mg Gabapentin (Neurontin) 800 mg PO TID [facility] Last Admin: 04/11/18 17:36 Dose: 800 mg Guaifenesin (Mucinex La) 600 mg PO BID [facility] Last Admin: 04/11/18 17:36 Dose: 600 mg Hydromorphone HCl (Dilaudid) 0.5 mg IVP Q4H PRN PRN Reason: Pain, severe (8-10) Last Admin: 04/11/18 17:36 Dose: 0.5 mg Meropenem 1 gm/ Sodium (Chloride) 100 mls @ 66.667 mls/hr IVPB Q8H [facility]; Protocol Last Admin: 04/11/18 17:36 Dose: 66.667 mls/hr Insulin Glargine (Lantus) 24 unit SC HS [facility] Last Admin: 04/10/18 21:28 Dose: 24 unit Insulin Human Regular (Novolin R) 0 unit SC ACHS [facility]; Protocol Last Admin: 04/11/18 17:35 Dose: 6 units Methylprednisolone (Solu-Medrol) 60 mg IVP Q12 [facility] Last Admin: 04/11/18 09:48 Dose: 60 mg Montelukast Sodium (Singulair) 10 mg PO HS [facility] Last Admin: 04/10/18 21:34 Dose: Not Given Pantoprazole Sodium (Protonix Ec Tab) 40 mg PO DAILY [facility] Last Admin: 04/11/18 11:26 Dose: 40 mg Quetiapine Fumarate (Seroquel) 400 mg PO BID [facility] Last Admin: 04/11/18 11:38 Dose: 400 mg Trazodone HCl (Desyrel) 150 mg PO HS [facility] Last Admin: 04/10/18 21:33 Dose: Not Given - Labs Labs: 04/11/18 07:05 04/11/18 07:05 PT 10.9 SECONDS (9.7-12.2) 04/06/18 00:44 INR 1.0 04/06/18 00:44 APTT 35 SECONDS (21-34) H 04/06/18 00:44
[2018-04-12] MEDS: Meropenem 1 GM in Sodium Chloride 0.9% 100 ML IVPB SCH ×3 (00:17→16:37)
[2018-04-12] MEDS: (Lantus) Insulin Glargine, Recombinant SC SCH ×2 (00:28→21:30)
[2018-04-12] MEDS: HYDROmorphone 0.5 mg/0.5 ml ISec IVP PRN ×5 (02:17→21:31)
[2018-04-12] MEDS: Albuterol-Ipratrop 3 mg / 0.5 (3 ml) UD INH SCH ×5 (03:10→19:15)
[2018-04-12] MEDS: Acetylcysteine 20% Inhal Soln (4ml) INH SCH ×5 (03:10→19:15)
--- NOTE | 2018-04-12 06:35 | CP.PCM.PN ---
Subjective - Date & Time of Evaluation Date of Evaluation: 04/10/18 Time of Evaluation: 19:15 - Subjective Subjective: Patient seen and evaluated Denies chest pain Still has some dyspnea Physical Exam - Constitutional Appears: Non-toxic - Respiratory Exam Respiratory Exam: NORMAL BREATHING PATTERN Additional comments: With tracheostomy - Cardiovascular Exam Cardiovascular Exam: REGULAR RHYTHM, +S1, +S2 - GI/Abdominal Exam GI & Abdominal Exam: Normal Bowel Sounds - Extremities Exam Extremities exam: Negative for: pedal edema Assessment & Plan (1) Respiratory distress Assessment and Plan: Patient is a 62 year old female with history of COPD, HTN, CHF, sp tracheostomy who presented for 3 day history of shortness of breath associated with fever, bodyaches Imaging/ Labs: Chest X-ray: Tracheostomy tube. Right-sided PICC. Cardiomegaly. Evidence of multifocal pneumonia Chest CT: Multifocal infiltrates. No evidence of mucous plugging. Mild mediastinal lymphadenopathy. Mild cardiomegaly. Multiple old vertebral comp ression fractures. Mild hepatosplenomegaly. Tracheostomy noted. Echocardiogram (04/28/17): Mild concentric left ventricular hypertrophy. LV function is normal. LV EF is within normal range. Normal LV segmental wall motion. Aortic valve is moderately calcified and possibly bicuspied, Moderate valvular aortic stenosis Troponin negative X1 Medications: - Acetylcysteine 4ml INH Q6H - Duonebs 3ML INH RQ4H - Azithromycin 500mg IV Q24H - Meropenem 1gm IV Q8H - Vanco 1gm IV Q12H - Singulair 10mg PO HS - Robitussin 200mg PO Q4H PRN Objective - Vital Signs/Intake and Output Vital Signs (last 24 hours): Temp Pulse Resp BP Pulse Ox 98.3 F 79 20 115/74 99 04/11/18 23:20 04/12/18 01:00 04/11/18 23:20 04/11/18 23:20 04/11/18 23:20 Intake and Output: 04/11/18 04/12/18 18:59 06:59 Intake Total 580 0 Balance 580 0 - Medications Medications: Current Medications Acetylcysteine (Acetylcysteine 20%) 4 ml INH RQ4 [facility] Last Admin: 04/12/18 03:10 Dose: 4 ml Albuterol/Ipratropium (Duoneb 3 Mg/0.5 Mg (3 Ml) Ud) 3 ml INH RQ4 [facility] Last Admin: 04/12/18 03:10 Dose: 3 ml Enoxaparin Sodium (Lovenox) 30 mg SC DAILY [facility] Last Admin: 04/11/18 11:25 Dose: 30 mg Gabapentin (Neurontin) 800 mg PO TID [facility] Last Admin: 04/11/18 17:36 Dose: 800 mg Guaifenesin (Mucinex La) 600 mg PO BID [facility] Last Admin: 04/11/18 17:36 Dose: 600 mg Hydromorphone HCl (Dilaudid) 0.5 mg IVP Q4H PRN PRN Reason: Pain, severe (8-10) Last Admin: 04/12/18 02:17 Dose: 0.5 mg Meropenem 1 gm/ Sodium (Chloride) 100 mls @ 66.667 mls/hr IVPB Q8H [facility]; Protocol Last Admin: 04/12/18 00:17 Dose: 66.667 mls/hr Insulin Glargine (Lantus) 24 unit SC [facility] Last Admin: 04/12/18 00:28 Dose: 24 unit Insulin Human Regular (Novolin R) 0 unit SC [facility]; Protocol Last Admin: 04/11/18 22:29 Dose: Not Given Methylprednisolone (Solu-Medrol) 60 mg IVP DAILY [facility] Montelukast Sodium (Singulair) 10 mg PO HS [facility] Last Admin: 04/11/18 22:30 Dose: 10 mg Pantoprazole Sodium (Protonix Ec Tab) 40 mg PO DAILY [facility] Last Admin: 04/11/18 11:26 Dose: 40 mg Quetiapine Fumarate (Seroquel) 400 mg PO BID [facility] Last Admin: 04/11/18 22:03 Dose: 400 mg Trazodone HCl (Desyrel) 150 mg PO HS [facility] Last Admin: 04/11/18 22:03 Dose: 150 mg - Labs Labs: 04/11/18 07:05 04/11/18 07:05 PT 10.9 SECONDS (9.7-12.2) 04/06/18 00:44 INR 1.0 04/06/18 00:44 APTT 35 SECONDS (21-34) H 04/06/18 00:44
--- NOTE | 2018-04-12 06:38 | CP.PCM.PN ---
Subjective - Date & Time of Evaluation Date of Evaluation: 04/11/18 Time of Evaluation: 09:10 - Subjective Subjective: Patient seen and evaluated Denies chest pain Still has some dyspnea Physical Exam - Constitutional Appears: Non-toxic - Respiratory Exam Respiratory Exam: NORMAL BREATHING PATTERN Additional comments: With tracheostomy - Cardiovascular Exam Cardiovascular Exam: REGULAR RHYTHM, +S1, +S2 - GI/Abdominal Exam GI & Abdominal Exam: Normal Bowel Sounds - Extremities Exam Extremities exam: Negative for: pedal edema Assessment & Plan (1) Respiratory distress Assessment and Plan: Patient is a 62 year old female with history of COPD, HTN, CHF, sp tracheostomy who presented for 3 day history of shortness of breath associated with fever, bodyaches Imaging/ Labs: Chest X-ray: Tracheostomy tube. Right-sided PICC. Cardiomegaly. Evidence of multifocal pneumonia Chest CT: Multifocal infiltrates. No evidence of mucous plugging. Mild mediastinal lymphadenopathy. Mild cardiomegaly. Multiple old vertebral comp ression fractures. Mild hepatosplenomegaly. Tracheostomy noted. Echocardiogram (04/28/17): Mild concentric left ventricular hypertrophy. LV function is normal. LV EF is within normal range. Normal LV segmental wall motion. Aortic valve is moderately calcified and possibly bicuspied, Moderate valvular aortic stenosis Troponin negative X1 Medications: - Acetylcysteine 4ml INH Q6H - Duonebs 3ML INH RQ4H - Azithromycin 500mg IV Q24H - Meropenem 1gm IV Q8H - Vanco 1gm IV Q12H - Singulair 10mg PO HS - Robitussin 200mg PO Q4H PRN Objective - Vital Signs/Intake and Output Vital Signs (last 24 hours): Temp Pulse Resp BP Pulse Ox 98.3 F 79 20 115/74 99 04/11/18 23:20 04/12/18 01:00 04/11/18 23:20 04/11/18 23:20 04/11/18 23:20 Intake and Output: 04/11/18 04/12/18 18:59 06:59 Intake Total 580 0 Balance 580 0 - Medications Medications: Current Medications Acetylcysteine (Acetylcysteine 20%) 4 ml INH RQ4 [facility] Last Admin: 04/12/18 03:10 Dose: 4 ml Albuterol/Ipratropium (Duoneb 3 Mg/0.5 Mg (3 Ml) Ud) 3 ml INH RQ4 [facility] Last Admin: 04/12/18 03:10 Dose: 3 ml Enoxaparin Sodium (Lovenox) 30 mg SC DAILY [facility] Last Admin: 04/11/18 11:25 Dose: 30 mg Gabapentin (Neurontin) 800 mg PO TID [facility] Last Admin: 04/11/18 17:36 Dose: 800 mg Guaifenesin (Mucinex La) 600 mg PO BID [facility] Last Admin: 04/11/18 17:36 Dose: 600 mg Hydromorphone HCl (Dilaudid) 0.5 mg IVP Q4H PRN PRN Reason: Pain, severe (8-10) Last Admin: 04/12/18 02:17 Dose: 0.5 mg Meropenem 1 gm/ Sodium (Chloride) 100 mls @ 66.667 mls/hr IVPB Q8H [facility]; Protocol Last Admin: 04/12/18 00:17 Dose: 66.667 mls/hr Insulin Glargine (Lantus) 24 unit SC [facility] Last Admin: 04/12/18 00:28 Dose: 24 unit Insulin Human Regular (Novolin R) 0 unit SC [facility]; Protocol Last Admin: 04/11/18 22:29 Dose: Not Given Methylprednisolone (Solu-Medrol) 60 mg IVP DAILY [facility] Montelukast Sodium (Singulair) 10 mg PO HS [facility] Last Admin: 04/11/18 22:30 Dose: 10 mg Pantoprazole Sodium (Protonix Ec Tab) 40 mg PO DAILY [facility] Last Admin: 04/11/18 11:26 Dose: 40 mg Quetiapine Fumarate (Seroquel) 400 mg PO BID [facility] Last Admin: 04/11/18 22:03 Dose: 400 mg Trazodone HCl (Desyrel) 150 mg PO HS [facility] Last Admin: 04/11/18 22:03 Dose: 150 mg - Labs Labs: 04/11/18 07:05 04/11/18 07:05 PT 10.9 SECONDS (9.7-12.2) 04/06/18 00:44 INR 1.0 04/06/18 00:44 APTT 35 SECONDS (21-34) H 04/06/18 00:44
[2018-04-12] MEDS: (Novolin R) Insulin Human Regular 100 units/ml vial SC SCH ×4 (07:19→21:30)
[2018-04-12 07:26] LABS: BASO % 0.1 % (0.0-2.0); EOS # 0.1 K/uL (0.0-0.7); EOS % 0.9 % (0.0-4.0); HEMOGLOBIN 11.6 g/dL (11.0-16.0); LYMPH # 2.6 K/uL (1.0-4.3); LYMPH % 21.9 % (20.0-40.0); MEAN CELL VOLUME 80.5 fL (81.0-99.0); MEAN CORPUSCULAR HEMOGLOBIN 25.8 pg (27.0-31.0); MEAN PLATELET VOLUME 8.4 fL (7.2-11.7); MONO # 0.7 K/uL (0.0-0.8); MONO % 5.6 % (0.0-10.0); NEUT # 8.3 K/uL (1.8-7.0); NEUT % 71.5 % (50.0-75.0); RBC 4.5 Mil/uL (3.80-5.20); RED CELL DISTRIBUTION WIDTH 15.7 % (11.5-14.5); WHITE BLOOD COUNT 11.7 K/uL (4.8-10.8)
[2018-04-12 07:41] LABS: ALB/GLOB RATIO 1.1 (1.0-2.1); ALBUMIN 3.6 g/dL (3.5-5.0); ALT/SGPT 13 U/L (9-52); AST/SGOT 12 U/L (14-36); BLOOD UREA NITROGEN 20 mg/dL (7-17); CALCIUM 8.9 mg/dl (8.6-10.4); GFR NON-AFRICAN AMERICAN > 60
[2018-04-12] MEDS: guaiFENesin 600 mg ER Tab PO SCH ×2 (12:25→17:38)
[2018-04-12] MEDS: MethylPREDNISolone 40 mg Vial IVP SCH (12:25)
[2018-04-12] MEDS: Pantoprazole 40 mg EC Tab PO SCH (12:25)
[2018-04-12] MEDS: Enoxaparin 30 mg Syringe SC SCH (12:26)
--- NOTE | 2018-04-12 14:48 | CP.PCM.PN ---
Subjective - Date & Time of Evaluation Date of Evaluation: 04/12/18 Time of Evaluation: 11:00 - Subjective Subjective: Patient seen and examined Still complaining of cough Afebrile Less secretions through the ET tube Objective - Vital Signs/Intake and Output Vital Signs (last 24 hours): Temp Pulse Resp BP Pulse Ox 98.1 F 75 20 96/59 L 95 04/12/18 08:20 04/12/18 08:20 04/12/18 08:20 04/12/18 08:20 04/12/18 08:20 Intake and Output: 04/12/18 04/12/18 06:59 18:59 Intake Total 0 Balance 0 - Medications Medications: Current Medications Acetylcysteine (Acetylcysteine 20%) 4 ml INH RQ4 [facility] Last Admin: 04/12/18 11:30 Dose: 4 ml Albuterol/Ipratropium (Duoneb 3 Mg/0.5 Mg (3 Ml) Ud) 3 ml INH RQ4 [facility] Last Admin: 04/12/18 11:30 Dose: 3 ml Enoxaparin Sodium (Lovenox) 30 mg SC DAILY [facility] Last Admin: 04/12/18 12:26 Dose: 30 mg Gabapentin (Neurontin) 800 mg PO TID [facility] Last Admin: 04/12/18 10:10 Dose: 800 mg Guaifenesin (Mucinex La) 600 mg PO BID [facility] Last Admin: 04/12/18 12:25 Dose: 600 mg Hydromorphone HCl (Dilaudid) 0.5 mg IVP Q4H PRN PRN Reason: Pain, severe (8-10) Last Admin: 04/12/18 12:27 Dose: 0.5 mg Meropenem 1 gm/ Sodium (Chloride) 100 mls @ 66.667 mls/hr IVPB Q8H [facility]; Protocol Last Admin: 04/12/18 08:14 Dose: 66.667 mls/hr Insulin Glargine (Lantus) 24 unit SC HS [facility] Last Admin: 04/12/18 00:28 Dose: 24 unit Insulin Human Regular (Novolin R) 0 unit SC ACHS [facility]; Protocol Last Admin: 04/12/18 12:26 Dose: 2 units Methylprednisolone (Solu-Medrol) 60 mg IVP DAILY [facility] Last Admin: 04/12/18 12:25 Dose: 60 mg Montelukast Sodium (Singulair) 10 mg PO [facility] Last Admin: 04/11/18 22:30 Dose: 10 mg Pantoprazole Sodium (Protonix Ec Tab) 40 mg PO DAILY [facility] Last Admin: 04/12/18 12:25 Dose: 40 mg Quetiapine Fumarate (Seroquel) 400 mg PO BID [facility] Last Admin: 04/12/18 12:25 Dose: 400 mg Trazodone HCl (Desyrel) 150 mg PO [facility] Last Admin: 04/11/18 22:03 Dose: 150 mg - Labs Labs: 04/12/18 07:03 04/12/18 07:03 PT 10.9 SECONDS (9.7-12.2) 04/06/18 00:44 INR 1.0 04/06/18 00:44 APTT 35 SECONDS (21-34) H 04/06/18 00:44 - Head Exam Head Exam: ATRAUMATIC, NORMOCEPHALIC - ENT Exam ENT Exam: Mucous Membranes Moist - Respiratory Exam Respiratory Exam: Decreased Breath Sounds - Cardiovascular Exam Cardiovascular Exam: REGULAR RHYTHM - GI/Abdominal Exam GI & Abdominal Exam: Soft, Normal Bowel Sounds Assessment and Plan (1) COPD exacerbation Assessment & Plan: Continue antibiotics Taper steroids Fenestrated trach Status: Acute (2) Tracheostomy dependence Status: Acute (3) Tracheobronchitis Status: Acute
--- NOTE | 2018-04-12 18:29 | PN ---
DATE: 04/12/2018 SUBJECTIVE: The patient still has persistent sputum production, thick. Her WBC is coming down to 11.7. She is on IV Merrem. Her steroids are being tapered. PHYSICAL EXAMINATION: VITAL SIGNS: Blood pressure 96/59, pulse 75, respiratory rate 20, temperature 98.1. LUNGS: Decreased air entry. Positive rhonchi. CARDIOVASCULAR SYSTEM: S1 and S2, regular. ABDOMEN: Soft. ASSESSMENT: 1. Tracheobronchitis with pneumonia with Proteus mirabilis. Continue Merrem as per Infectious Disease. 2. Bronchial asthma exacerbation. 3. Hypertension. 4. Morbid obesity. 5. Type 2 diabetes. PLAN: Continue current meds. dA Khan MD
--- NOTE | 2018-04-12 18:34 | PN ---
DATE: 04/12/2018 SUBJECTIVE: The patient continues to have cough, congestion, thick sputum production, chills, rigors. She complains of neck pain. The patient was evaluated by Ear, Nose and Throat doctor for her tracheostomy. Recently her tracheostomy and her cannula had been changed but she still has pain. She has decreased WBC, decreased cough, shortness of breath. PHYSICAL EXAMINATION: VITAL SIGNS: Blood pressure 138/78, pulse 101, respiratory rate 20, and temperature 98.4. LUNGS: Bilateral expiratory and inspiratory rhonchi. CARDIOVASCULAR SYSTEM: S1 and S2 regular. ABDOMEN: Soft. ASSESSMENT: 1. Tracheobronchitis, rule out pneumonia. 2. Exacerbation of asthma. 3. Depression. 4. Type 2 diabetes. PLAN: Continue IV antibiotics Merrem because of multidrug-resistant Proteus mirabilis and plan of care duration of antibiotics per ID. Monitor the patient. Ad Khan MD
--- NOTE | 2018-04-12 23:13 | CP.PCM.PN ---
Subjective - Date & Time of Evaluation Date of Evaluation: 04/12/18 Time of Evaluation: 23:13 - Subjective Subjective: AFEBRILE, C/O COUGH THROAT PAIN +VE THICK SECRETIONS TRACH IN PLACE PER CXR REPORT Objective - Vital Signs/Intake and Output Vital Signs (last 24 hours): Temp Pulse Resp BP Pulse Ox 98.0 F 95 H 18 114/73 95 04/12/18 21:00 04/12/18 21:00 04/12/18 21:00 04/12/18 21:00 04/12/18 21:00 - Medications Medications: Current Medications Acetylcysteine (Acetylcysteine 20%) 4 ml INH RQ4 [facility] Last Admin: 04/12/18 19:15 Dose: 4 ml Albuterol/Ipratropium (Duoneb 3 Mg/0.5 Mg (3 Ml) Ud) 3 ml INH RQ4 [facility] Last Admin: 04/12/18 19:15 Dose: 3 ml Enoxaparin Sodium (Lovenox) 30 mg SC DAILY [facility] Last Admin: 04/12/18 12:26 Dose: 30 mg Gabapentin (Neurontin) 800 mg PO TID [facility] Last Admin: 04/12/18 17:39 Dose: 800 mg Guaifenesin (Mucinex La) 600 mg PO BID [facility] Last Admin: 04/12/18 17:38 Dose: 600 mg Hydromorphone HCl (Dilaudid) 0.5 mg IVP Q4H PRN PRN Reason: Pain, severe (8-10) Last Admin: 04/12/18 21:31 Dose: 0.5 mg Meropenem 1 gm/ Sodium (Chloride) 100 mls @ 66.667 mls/hr IVPB Q8H [facility]; Protocol Last Admin: 04/12/18 16:37 Dose: 66.667 mls/hr Insulin Glargine (Lantus) 24 unit SC HS [facility] Last Admin: 04/12/18 21:30 Dose: 24 unit Insulin Human Regular (Novolin R) 0 unit SC ACHS [facility]; Protocol Last Admin: 04/12/18 21:30 Dose: 10 units Methylprednisolone (Solu-Medrol) 60 mg IVP DAILY [facility] Last Admin: 04/12/18 12:25 Dose: 60 mg Montelukast Sodium (Singulair) 10 mg PO HS [facility] Last Admin: 04/12/18 21:30 Dose: 10 mg Pantoprazole Sodium (Protonix Ec Tab) 40 mg PO DAILY [facility] Last Admin: 04/12/18 12:25 Dose: 40 mg Quetiapine Fumarate (Seroquel) 400 mg PO BID [facility] Last Admin: 04/12/18 17:38 Dose: 400 mg Trazodone HCl (Desyrel) 150 mg PO HS [facility] Last Admin: 04/12/18 21:30 Dose: 150 mg - Labs Labs: 04/12/18 07:03 04/12/18 07:03 PT 10.9 SECONDS (9.7-12.2) 04/06/18 00:44 INR 1.0 04/06/18 00:44 APTT 35 SECONDS (21-34) H 04/06/18 00:44 - Constitutional Appears: No Acute Distress - Head Exam Head Exam: NORMAL INSPECTION - Eye Exam Eye Exam: EOMI, PERRL - ENT Exam ENT Exam: Mucous Membranes Moist, Normal Oropharynx - Neck Exam Neck Exam: Normal Inspection - Respiratory Exam Respiratory Exam: Decreased Breath Sounds, Prolonged Expiratory Phase - Cardiovascular Exam Cardiovascular Exam: REGULAR RHYTHM, +S1, +S2 - Extremities Exam Extremities Exam: Normal Capillary Refill, Pedal Edema. absent: Calf Tenderness - Neurological Exam Neurological Exam: Alert, Awake, CN II-XII Intact, Oriented x3 - Psychiatric Exam Psychiatric exam: Normal Mood - Skin Skin Exam: Normal Color, Warm Assessment and Plan (1) Pneumonia Status: Acute (2) Tracheobronchitis Status: Acute (3) COPD exacerbation Status: Acute (4) Respiratory distress Status: Acute (5) Tracheostomy dependence Status: Acute (6) Sleep apnea syndrome Status: Acute - Assessment and Plan (Free Text) Plan: CONTINUE IV MERREM 1GM IVPB Q 8HRLY 04/10/18 MRSA SCREEN-VE F/U CXR 04/11/18 NOTED - IMPROVED AERATION RLL. CONTACT ISOLATION PULMONARY TOILET /DUONEB TREATMENTS. CONTINUE SOLUMEDROL PER PULMONARY.
[2018-04-13] MEDS: Albuterol-Ipratrop 3 mg / 0.5 (3 ml) UD INH SCH ×6 (00:27→20:17)
[2018-04-13] MEDS: Acetylcysteine 20% Inhal Soln (4ml) INH SCH ×6 (00:27→20:17)
[2018-04-13] MEDS: Meropenem 1 GM in Sodium Chloride 0.9% 100 ML IVPB SCH ×3 (00:30→16:18)
[2018-04-13] MEDS: HYDROmorphone 0.5 mg/0.5 ml ISec IVP PRN ×5 (01:59→21:35)
[2018-04-13] MEDS: (Novolin R) Insulin Human Regular 100 units/ml vial SC SCH ×4 (08:32→21:33)
[2018-04-13] MEDS: guaiFENesin 600 mg ER Tab PO SCH ×2 (10:51→17:14)
[2018-04-13] MEDS: Pantoprazole 40 mg EC Tab PO SCH (10:51)
[2018-04-13] MEDS: Enoxaparin 30 mg Syringe SC SCH (10:51)
[2018-04-13] MEDS: MethylPREDNISolone 40 mg Vial IVP SCH (10:51)
--- NOTE | 2018-04-13 12:43 | CP.PCM.PN ---
Subjective - Date & Time of Evaluation Date of Evaluation: 04/13/18 Time of Evaluation: 09:40 - Subjective Subjective: Patient seen and examined Complaining of throat pain Unable to talk after tracheostomy tube was changed Afebrile Objective - Vital Signs/Intake and Output Vital Signs (last 24 hours): Temp Pulse Resp BP Pulse Ox 98 F 73 22 132/80 97 04/13/18 07:00 04/13/18 07:00 04/13/18 10:35 04/13/18 07:00 04/13/18 07:00 Intake and Output: 04/13/18 04/13/18 06:59 18:59 Intake Total 100 Balance 100 - Medications Medications: Current Medications Acetylcysteine (Acetylcysteine 20%) 4 ml INH RQ4 [facility] Last Admin: 04/13/18 09:11 Dose: Not Given Albuterol/Ipratropium (Duoneb 3 Mg/0.5 Mg (3 Ml) Ud) 3 ml INH RQ4 [facility] Last Admin: 04/13/18 09:11 Dose: 3 ml Gabapentin (Neurontin) 800 mg PO TID [facility] Last Admin: 04/13/18 10:51 Dose: 800 mg Guaifenesin (Mucinex La) 600 mg PO BID [facility] Last Admin: 04/13/18 10:51 Dose: 600 mg Hydromorphone HCl (Dilaudid) 0.5 mg IVP Q4H PRN PRN Reason: Pain, severe (8-10) Last Admin: 04/13/18 10:49 Dose: 0.5 mg Meropenem 1 gm/ Sodium (Chloride) 100 mls @ 66.667 mls/hr IVPB Q8H [facility]; Protocol Last Admin: 04/13/18 08:58 Dose: 66.667 mls/hr Insulin Glargine (Lantus) 24 unit SC [facility] Last Admin: 04/12/18 21:30 Dose: 24 unit Insulin Human Regular (Novolin R) [address] [facility]; Protocol Last Admin: 04/12/18 21:30 Dose: 10 units Methylprednisolone (Solu-Medrol) 60 mg IVP DAILY [facility] Last Admin: 04/13/18 10:51 Dose: 60 mg Montelukast Sodium (Singulair) 10 mg PO HS [facility] Last Admin: 04/12/18 21:30 Dose: 10 mg Pantoprazole Sodium (Protonix Ec Tab) 40 mg PO DAILY [facility] Last Admin: 04/13/18 10:51 Dose: 40 mg Quetiapine Fumarate (Seroquel) 400 mg PO BID [facility] Last Admin: 04/13/18 10:51 Dose: 400 mg Trazodone HCl (Desyrel) 150 mg PO HS [facility] Last Admin: 04/12/18 21:30 Dose: 150 mg - Labs Labs: 04/12/18 07:03 04/12/18 07:03 PT 10.9 SECONDS (9.7-12.2) 04/06/18 00:44 INR 1.0 04/06/18 00:44 APTT 35 SECONDS (21-34) H 04/06/18 00:44 - Head Exam Head Exam: ATRAUMATIC, NORMOCEPHALIC - ENT Exam ENT Exam: Mucous Membranes Moist - Neck Exam Neck Exam: Normal Inspection - Respiratory Exam Respiratory Exam: Decreased Breath Sounds - Cardiovascular Exam Cardiovascular Exam: REGULAR RHYTHM - GI/Abdominal Exam GI & Abdominal Exam: Soft, Normal Bowel Sounds Assessment and Plan (1) COPD exacerbation Assessment & Plan: Continue antibiotics Fenestrated trach Analgesics for pain Nebulizer treatment Status: Acute (2) Tracheostomy dependence Status: Acute (3) Tracheobronchitis Status: Acute
--- NOTE | 2018-04-13 20:55 | CP.PCM.PN ---
Subjective - Date & Time of Evaluation Date of Evaluation: 04/12/18 Time of Evaluation: 07:30 - Subjective Subjective: Patient seen and evaluated Denies chest pain Still has some dyspnea Physical Exam - Constitutional Appears: Non-toxic - Respiratory Exam Respiratory Exam: NORMAL BREATHING PATTERN Additional comments: With tracheostomy - Cardiovascular Exam Cardiovascular Exam: REGULAR RHYTHM, +S1, +S2 - GI/Abdominal Exam GI & Abdominal Exam: Normal Bowel Sounds - Extremities Exam Extremities exam: Negative for: pedal edema Assessment & Plan (1) Respiratory distress Assessment and Plan: Patient is a 62 year old female with history of COPD, HTN, CHF, sp tracheostomy who presented for 3 day history of shortness of breath associated with fever, bodyaches Imaging/ Labs: Chest X-ray: Tracheostomy tube. Right-sided PICC. Cardiomegaly. Evidence of multifocal pneumonia Chest CT: Multifocal infiltrates. No evidence of mucous plugging. Mild mediastinal lymphadenopathy. Mild cardiomegaly. Multiple old vertebral comp ression fractures. Mild hepatosplenomegaly. Tracheostomy noted. Echocardiogram (04/28/17): Mild concentric left ventricular hypertrophy. LV function is normal. LV EF is within normal range. Normal LV segmental wall motion. Aortic valve is moderately calcified and possibly bicuspied, Moderate valvular aortic stenosis Troponin negative X1 Medications: - Acetylcysteine 4ml INH Q6H - Duonebs 3ML INH RQ4H - Azithromycin 500mg IV Q24H - Meropenem 1gm IV Q8H - Vanco 1gm IV Q12H - Singulair 10mg PO HS - Robitussin 200mg PO Q4H PRN Objective - Vital Signs/Intake and Output Vital Signs (last 24 hours): Temp Pulse Resp BP Pulse Ox 98.5 F 70 20 135/84 95 04/13/18 15:00 04/13/18 15:00 04/13/18 15:00 04/13/18 15:00 04/13/18 15:00 - Medications Medications: Current Medications Acetylcysteine (Acetylcysteine 20%) 4 ml INH RQ4 [facility] Last Admin: 04/13/18 20:17 Dose: 4 ml Albuterol/Ipratropium (Duoneb 3 Mg/0.5 Mg (3 Ml) Ud) 3 ml INH RQ4 [facility] Last Admin: 04/13/18 20:17 Dose: 3 ml Gabapentin (Neurontin) 800 mg PO TID [facility] Last Admin: 04/13/18 13:58 Dose: 800 mg Guaifenesin (Mucinex La) 600 mg PO BID [facility] Last Admin: 04/13/18 17:14 Dose: 600 mg Meropenem 1 gm/ Sodium (Chloride) 100 mls @ 66.667 mls/hr IVPB Q8H [facility]; Protocol Last Admin: 04/13/18 16:18 Dose: 66.667 mls/hr Insulin Glargine (Lantus) 24 unit SC HS [facility] Last Admin: 04/12/18 21:30 Dose: 24 unit Insulin Human Regular (Novolin R) 0 unit SC ACHS [facility]; Protocol Last Admin: 04/13/18 17:14 Dose: 10 units Methylprednisolone (Solu-Medrol) 60 mg IVP DAILY [facility] Last Admin: 04/13/18 10:51 Dose: 60 mg Montelukast Sodium (Singulair) 10 mg PO HS [facility] Last Admin: 04/12/18 21:30 Dose: 10 mg Pantoprazole Sodium (Protonix Ec Tab) 40 mg PO DAILY [facility] Last Admin: 04/13/18 10:51 Dose: 40 mg Quetiapine Fumarate (Seroquel) 400 mg PO BID [facility] Last Admin: 04/13/18 17:14 Dose: 400 mg Trazodone HCl (Desyrel) 150 mg PO HS [facility] Last Admin: 04/12/18 21:30 Dose: 150 mg - Labs Labs: 04/12/18 07:03 04/12/18 07:03 PT 10.9 SECONDS (9.7-12.2) 04/06/18 00:44 INR 1.0 04/06/18 00:44 APTT 35 SECONDS (21-34) H 04/06/18 00:44
--- NOTE | 2018-04-13 20:55 | CP.PCM.PN ---
Subjective - Date & Time of Evaluation Date of Evaluation: 04/13/18 Time of Evaluation: 07:45 - Subjective Subjective: Patient seen and evaluated Denies chest pain Still has some dyspnea Physical Exam - Constitutional Appears: Non-toxic - Respiratory Exam Respiratory Exam: NORMAL BREATHING PATTERN Additional comments: With tracheostomy - Cardiovascular Exam Cardiovascular Exam: REGULAR RHYTHM, +S1, +S2 - GI/Abdominal Exam GI & Abdominal Exam: Normal Bowel Sounds - Extremities Exam Extremities exam: Negative for: pedal edema Assessment & Plan (1) Respiratory distress Assessment and Plan: Patient is a 62 year old female with history of COPD, HTN, CHF, sp tracheostomy who presented for 3 day history of shortness of breath associated with fever, bodyaches Imaging/ Labs: Chest X-ray: Tracheostomy tube. Right-sided PICC. Cardiomegaly. Evidence of multifocal pneumonia Chest CT: Multifocal infiltrates. No evidence of mucous plugging. Mild mediastinal lymphadenopathy. Mild cardiomegaly. Multiple old vertebral comp ression fractures. Mild hepatosplenomegaly. Tracheostomy noted. Echocardiogram (04/28/17): Mild concentric left ventricular hypertrophy. LV function is normal. LV EF is within normal range. Normal LV segmental wall motion. Aortic valve is moderately calcified and possibly bicuspied, Moderate valvular aortic stenosis Troponin negative X1 Medications: - Acetylcysteine 4ml INH Q6H - Duonebs 3ML INH RQ4H - Azithromycin 500mg IV Q24H - Meropenem 1gm IV Q8H - Vanco 1gm IV Q12H - Singulair 10mg PO HS - Robitussin 200mg PO Q4H PRN Objective - Vital Signs/Intake and Output Vital Signs (last 24 hours): Temp Pulse Resp BP Pulse Ox 98.5 F 70 20 135/84 95 04/13/18 15:00 04/13/18 15:00 04/13/18 15:00 04/13/18 15:00 04/13/18 15:00 - Medications Medications: Current Medications Acetylcysteine (Acetylcysteine 20%) 4 ml INH RQ4 [facility] Last Admin: 04/13/18 20:17 Dose: 4 ml Albuterol/Ipratropium (Duoneb 3 Mg/0.5 Mg (3 Ml) Ud) 3 ml INH RQ4 [facility] Last Admin: 04/13/18 20:17 Dose: 3 ml Gabapentin (Neurontin) 800 mg PO TID [facility] Last Admin: 04/13/18 13:58 Dose: 800 mg Guaifenesin (Mucinex La) 600 mg PO BID [facility] Last Admin: 04/13/18 17:14 Dose: 600 mg Meropenem 1 gm/ Sodium (Chloride) 100 mls @ 66.667 mls/hr IVPB Q8H [facility]; Protocol Last Admin: 04/13/18 16:18 Dose: 66.667 mls/hr Insulin Glargine (Lantus) 24 unit SC HS [facility] Last Admin: 04/12/18 21:30 Dose: 24 unit Insulin Human Regular (Novolin R) 0 unit SC ACHS [facility]; Protocol Last Admin: 04/13/18 17:14 Dose: 10 units Methylprednisolone (Solu-Medrol) 60 mg IVP DAILY [facility] Last Admin: 04/13/18 10:51 Dose: 60 mg Montelukast Sodium (Singulair) 10 mg PO HS [facility] Last Admin: 04/12/18 21:30 Dose: 10 mg Pantoprazole Sodium (Protonix Ec Tab) 40 mg PO DAILY [facility] Last Admin: 04/13/18 10:51 Dose: 40 mg Quetiapine Fumarate (Seroquel) 400 mg PO BID [facility] Last Admin: 04/13/18 17:14 Dose: 400 mg Trazodone HCl (Desyrel) 150 mg PO HS [facility] Last Admin: 04/12/18 21:30 Dose: 150 mg - Labs Labs: 04/12/18 07:03 04/12/18 07:03 PT 10.9 SECONDS (9.7-12.2) 04/06/18 00:44 INR 1.0 04/06/18 00:44 APTT 35 SECONDS (21-34) H 04/06/18 00:44
[2018-04-13] MEDS: (Lantus) Insulin Glargine, Recombinant SC SCH (21:35)
--- NOTE | 2018-04-13 23:25 | CP.PCM.PN ---
Subjective - Date & Time of Evaluation Date of Evaluation: 04/13/18 Time of Evaluation: 23:25 - Subjective Subjective: AFEBRILE, C/O THROAT PAIN +VE THICK SECRETIONS TRACH IN PLACE . LABS; WBC IMPROVED 11.3 F/U CXR 04/11/18 NOTED - IMPROVED AERATION RLL. Objective - Vital Signs/Intake and Output Vital Signs (last 24 hours): Temp Pulse Resp BP Pulse Ox 98.5 F 70 20 135/84 95 04/13/18 15:00 04/13/18 15:00 04/13/18 15:00 04/13/18 15:00 04/13/18 15:00 - Medications Medications: Current Medications Acetylcysteine (Acetylcysteine 20%) 4 ml INH RQ4 [facility] Last Admin: 04/13/18 20:17 Dose: 4 ml Albuterol/Ipratropium (Duoneb 3 Mg/0.5 Mg (3 Ml) Ud) 3 ml INH RQ4 [facility] Last Admin: 04/13/18 20:17 Dose: 3 ml Gabapentin (Neurontin) 800 mg PO TID [facility] Last Admin: 04/13/18 21:35 Dose: 800 mg Guaifenesin (Mucinex La) 600 mg PO BID [facility] Last Admin: 04/13/18 17:14 Dose: 600 mg Hydromorphone HCl (Dilaudid) 0.5 mg IVP Q4H PRN PRN Reason: Pain, severe (8-10) Last Admin: 04/13/18 21:35 Dose: 0.5 mg Meropenem 1 gm/ Sodium (Chloride) 100 mls @ 66.667 mls/hr IVPB Q8H [facility]; Protocol Last Admin: 04/13/18 16:18 Dose: 66.667 mls/hr Insulin Glargine (Lantus) 24 unit SC HS [facility] Last Admin: 04/13/18 21:35 Dose: 24 unit Insulin Human Regular (Novolin R) 0 unit SC ACHS [facility]; Protocol Last Admin: 04/13/18 21:33 Dose: Not Given Methylprednisolone (Solu-Medrol) 60 mg IVP DAILY [facility] Last Admin: 04/13/18 10:51 Dose: 60 mg Montelukast Sodium (Singulair) 10 mg PO HS [facility] Last Admin: 04/12/18 21:30 Dose: 10 mg Pantoprazole Sodium (Protonix Ec Tab) 40 mg PO DAILY [facility] Last Admin: 04/13/18 10:51 Dose: 40 mg Quetiapine Fumarate (Seroquel) 400 mg PO BID [facility] Last Admin: 04/13/18 17:14 Dose: 400 mg Trazodone HCl (Desyrel) 150 mg PO HS [facility] Last Admin: 04/13/18 21:35 Dose: 150 mg - Labs Labs: 04/12/18 07:03 04/12/18 07:03 PT 10.9 SECONDS (9.7-12.2) 04/06/18 00:44 INR 1.0 04/06/18 00:44 APTT 35 SECONDS (21-34) H 04/06/18 00:44 - Constitutional Appears: No Acute Distress - Head Exam Head Exam: NORMAL INSPECTION - Eye Exam Eye Exam: EOMI, PERRL - ENT Exam ENT Exam: Mucous Membranes Moist, Normal Oropharynx (TRACHEOSTOMY IN PLACE.) - Neck Exam Neck Exam: Full ROM, Normal Inspection. absent: Thyromegaly - Respiratory Exam Respiratory Exam: Rhonchi (B/L), NORMAL BREATHING PATTERN - Cardiovascular Exam Cardiovascular Exam: REGULAR RHYTHM, +S1, +S2 - GI/Abdominal Exam GI & Abdominal Exam: Soft, Normal Bowel Sounds. absent: Tenderness - Extremities Exam Extremities Exam: Normal Capillary Refill (1+), Pedal Edema. absent: Calf Tenderness - Neurological Exam Neurological Exam: Alert, Awake, CN II-XII Intact, Normal Gait, Oriented x3 - Psychiatric Exam Psychiatric exam: Normal Mood - Skin Skin Exam: Normal Color, Warm Assessment and Plan (1) Pneumonia Status: Acute (2) Tracheobronchitis Status: Acute (3) COPD exacerbation Status: Acute (4) Respiratory distress Status: Acute (5) Tracheostomy dependence Status: Acute (6) Sleep apnea syndrome Status: Acute - Assessment and Plan (Free Text) Plan: CONTINUE IV MERREM 1GM IVPB Q 8HRLY 04/10/18 CONTINUE SOLUMEDROL 60MG IVPB QD DAILY PER PULMONARY. ADD NYSTATIN 5ML S/S QID X 5 DAYS 04/13/18 CONTACT ISOLATION PULMONARY TOILET /DUONEB TREATMENTS. CASE DISCUSSED W STAFF.
--- NOTE | 2018-04-13 23:41 | PN ---
DATE: 04/13/2018 SUBJECTIVE: The patient is congested. She has decreased wheezing. She is being tapered off steroids. PHYSICAL EXAMINATION: VITAL SIGNS: Blood pressure 135/84, pulse 70, respiratory rate 20, and temperature 98.5. LUNGS: Bilateral inspiratory and expiratory rhonchi. Decreased air entry. CARDIOVASCULAR SYSTEM: S1 and S2, regular. ABDOMEN: Soft. LABORATORY DATA: The patient's sputum is positive for Proteus mirabilis which is multidrug resistant. Blood sugar is fluctuating, is 439 now. It was 174 before. ASSESSMENT: 1. Exacerbation of bronchial asthma. 2. Tracheobronchitis, rule out pneumonia status post tracheostomy inner cannula change. The patient has been seen by Pulmonary. PLAN: Medical management. Monitor the patient. Blood sugar control and IV antibiotics as per Infectious Disease. Ad Khan MD
[2018-04-14] MEDS: Meropenem 1 GM in Sodium Chloride 0.9% 100 ML IVPB SCH ×3 (00:07→16:13)
[2018-04-14] MEDS: Albuterol-Ipratrop 3 mg / 0.5 (3 ml) UD INH SCH ×6 (00:08→20:00)
[2018-04-14] MEDS: Acetylcysteine 20% Inhal Soln (4ml) INH SCH ×6 (00:08→20:00)
[2018-04-14] MEDS: HYDROmorphone 0.5 mg/0.5 ml ISec IVP PRN ×6 (01:53→23:29)
[2018-04-14] MEDS: (Novolin R) Insulin Human Regular 100 units/ml vial SC SCH ×4 (07:01→21:37)
[2018-04-14] MEDS: Nystatin 100,000 Units/ml Oral Susp 5 ml UD PO SCH ×4 (11:00→21:53)
[2018-04-14] MEDS: MethylPREDNISolone 40 mg Vial IVP SCH (11:00)
[2018-04-14] MEDS: guaiFENesin 600 mg ER Tab PO SCH ×2 (11:00→18:23)
[2018-04-14] MEDS: Pantoprazole 40 mg EC Tab PO SCH (11:00)
--- NOTE | 2018-04-14 17:53 | CP.PCM.PN ---
Subjective - Date & Time of Evaluation Date of Evaluation: 04/14/18 Time of Evaluation: 15:20 - Subjective Subjective: Patient seen and examined Complaining of blood-tinged secretion Afebrile Still having throat pain Difficulty speaking with the new trach Continue antibiotics Fenestrated trach Objective - Vital Signs/Intake and Output Vital Signs (last 24 hours): Temp Pulse Resp BP Pulse Ox 98.1 F 72 20 108/70 95 04/14/18 15:23 04/14/18 15:23 04/14/18 15:23 04/14/18 15:23 04/14/18 15:23 - Medications Medications: Current Medications Acetylcysteine (Acetylcysteine 20%) 4 ml INH RQ4 [facility] Last Admin: 04/14/18 11:30 Dose: 4 ml Albuterol/Ipratropium (Duoneb 3 Mg/0.5 Mg (3 Ml) Ud) 3 ml INH RQ4 [facility] Last Admin: 04/14/18 11:30 Dose: 3 ml Gabapentin (Neurontin) 800 mg PO TID [facility] Last Admin: 04/14/18 13:24 Dose: 800 mg Guaifenesin (Mucinex La) 600 mg PO BID [facility] Last Admin: 04/14/18 11:00 Dose: 600 mg Hydromorphone HCl (Dilaudid) 0.5 mg IVP Q4H PRN PRN Reason: Pain, severe (8-10) Last Admin: 04/14/18 15:04 Dose: 0.5 mg Meropenem 1 gm/ Sodium (Chloride) 100 mls @ 66.667 mls/hr IVPB Q8H [facility]; Protocol Last Admin: 04/14/18 16:13 Dose: 66.667 mls/hr Insulin Glargine (Lantus) 24 unit SC HS [facility] Last Admin: 04/13/18 21:35 Dose: 24 unit Insulin Human Regular (Novolin R) 0 unit SC ACHS [facility]; Protocol Last Admin: 04/14/18 16:54 Dose: 10 units Methylprednisolone (Solu-Medrol) 60 mg IVP DAILY [facility] Last Admin: 04/14/18 11:00 Dose: 60 mg Montelukast Sodium (Singulair) 10 mg PO HS [facility] Last Admin: 04/14/18 00:07 Dose: 10 mg Nystatin (Nystatin Oral Susp) 5 ml PO QID [facility] Last Admin: 04/14/18 13:24 Dose: 5 ml Pantoprazole Sodium (Protonix Ec Tab) 40 mg PO DAILY [facility] Last Admin: 04/14/18 11:00 Dose: 40 mg Quetiapine Fumarate (Seroquel) 400 mg PO BID [facility] Last Admin: 04/14/18 11:00 Dose: 400 mg Trazodone HCl (Desyrel) 150 mg PO HS [facility] Last Admin: 04/13/18 21:35 Dose: 150 mg - Labs Labs: 04/12/18 07:03 04/12/18 07:03 PT 10.9 SECONDS (9.7-12.2) 04/06/18 00:44 INR 1.0 04/06/18 00:44 APTT 35 SECONDS (21-34) H 04/06/18 00:44 Assessment and Plan (1) COPD exacerbation Status: Acute (2) Tracheostomy dependence Status: Acute (3) Tracheobronchitis Status: Acute
--- NOTE | 2018-04-14 21:03 | CP.PCM.PN ---
Subjective - Date & Time of Evaluation Date of Evaluation: 04/21/18 Time of Evaluation: 07:25 - Subjective Subjective: Patient seen and evaluated On Trach collar Denies chest pain Still has some dyspnea Physical Exam - Constitutional Appears: Non-toxic - Respiratory Exam Respiratory Exam: NORMAL BREATHING PATTERN Additional comments: With tracheostomy - Cardiovascular Exam Cardiovascular Exam: REGULAR RHYTHM, +S1, +S2 - GI/Abdominal Exam GI & Abdominal Exam: Normal Bowel Sounds - Extremities Exam Extremities exam: Negative for: pedal edema Assessment & Plan (1) Respiratory distress Assessment and Plan: Patient is a 62 year old female with history of COPD, HTN, CHF, sp tracheostomy who presented for 3 day history of shortness of breath associated with fever, bodyaches Imaging/ Labs: Chest X-ray: Tracheostomy tube. Right-sided PICC. Cardiomegaly. Evidence of multifocal pneumonia Chest CT: Multifocal infiltrates. No evidence of mucous plugging. Mild mediastinal lymphadenopathy. Mild cardiomegaly. Multiple old vertebral compression fractures. Mild hepatosplenomegaly. Tracheostomy noted. Echocardiogram (04/28/17): Mild concentric left ventricular hypertrophy. LV function is normal. LV EF is within normal range. Normal LV segmental wall motion. Aortic valve is moderately calcified and possibly bicuspied, Moderate valvular aortic stenosis Troponin negative X1 Medications: - Acetylcysteine 4ml INH Q6H - Duonebs 3ML INH RQ4H - Azithromycin 500mg IV Q24H - Meropenem 1gm IV Q8H - Vanco 1gm IV Q12H - Singulair 10mg PO HS - Robitussin 200mg PO Q4H PRN Objective - Vital Signs/Intake and Output Vital Signs (last 24 hours): Temp Pulse Resp BP Pulse Ox 98.1 F 72 20 108/70 95 04/14/18 15:23 04/14/18 15:23 04/14/18 15:23 04/14/18 15:23 04/14/18 15:23 - Medications Medications: Current Medications Acetylcysteine (Acetylcysteine 20%) 4 ml INH RQ4 [facility] Last Admin: 04/14/18 11:30 Dose: 4 ml Albuterol/Ipratropium (Duoneb 3 Mg/0.5 Mg (3 Ml) Ud) 3 ml INH RQ4 [facility] Last Admin: 04/14/18 11:30 Dose: 3 ml Gabapentin (Neurontin) 800 mg PO TID [facility] Last Admin: 04/14/18 18:32 Dose: 800 mg Guaifenesin (Mucinex La) 600 mg PO BID [facility] Last Admin: 04/14/18 18:23 Dose: 600 mg Hydromorphone HCl (Dilaudid) 0.5 mg IVP Q4H PRN PRN Reason: Pain, severe (8-10) Last Admin: 04/14/18 19:06 Dose: 0.5 mg Meropenem 1 gm/ Sodium (Chloride) 100 mls @ 66.667 mls/hr IVPB Q8H [facility]; Protocol Last Admin: 04/14/18 16:13 Dose: 66.667 mls/hr Insulin Glargine (Lantus) 24 unit SC [facility] Last Admin: 04/13/18 21:35 Dose: 24 unit Insulin Human Regular (Novolin R) 0 unit SC [facility]; Protocol Last Admin: 04/14/18 16:54 Dose: 10 units Methylprednisolone (Solu-Medrol) 60 mg IVP DAILY [facility] Last Admin: 04/14/18 11:00 Dose: 60 mg Montelukast Sodium (Singulair) 10 mg PO [facility] Last Admin: 04/14/18 00:07 Dose: 10 mg Nystatin (Nystatin Oral Susp) 5 ml PO QID [facility] Last Admin: 04/14/18 18:23 Dose: 5 ml Pantoprazole Sodium (Protonix Ec Tab) 40 mg PO DAILY [facility] Last Admin: 04/14/18 11:00 Dose: 40 mg Quetiapine Fumarate (Seroquel) 400 mg PO BID [facility] Last Admin: 04/14/18 18:23 Dose: 400 mg Trazodone HCl (Desyrel) 150 mg PO HS [facility] Last Admin: 04/13/18 21:35 Dose: 150 mg - Labs Labs: 04/12/18 07:03 04/12/18 07:03 PT 10.9 SECONDS (9.7-12.2) 04/06/18 00:44 INR 1.0 04/06/18 00:44 APTT 35 SECONDS (21-34) H 04/06/18 00:44
[2018-04-14] MEDS: (Lantus) Insulin Glargine, Recombinant SC SCH (21:53)
[2018-04-15] MEDS: Meropenem 1 GM in Sodium Chloride 0.9% 100 ML IVPB SCH ×4 (00:07→23:27)
[2018-04-15] MEDS: Acetylcysteine 20% Inhal Soln (4ml) INH SCH ×6 (00:59→19:06)
[2018-04-15] MEDS: Albuterol-Ipratrop 3 mg / 0.5 (3 ml) UD INH SCH ×6 (00:59→19:06)
--- NOTE | 2018-04-15 01:24 | PN ---
DATE: 04/15/2018 SUBJECTIVE: The patient is afebrile, decreased sputum production, decreased congestion, decreased cough. PHYSICAL EXAMINATION: VITAL SIGNS: Blood pressure is 115/73, pulse 68, respiratory rate 20, temperature 98.3. LUNGS: Decreased air entry. Positive rhonchi. CARDIOVASCULAR SYSTEM: S1, S2. Regular. ABDOMEN: Soft. ASSESSMENT: 1. Sputum pneumonia versus tracheobronchitis due to multidrug-resistant Proteus mirabilis. 2. Bronchial asthma exacerbation. 3. Tracheostomy with complication. 4. Type 2 diabetes. PLAN: Continue antibiotics. Follow up with ID. Monitor the patient. Ad Khan MD
[2018-04-15] MEDS: HYDROmorphone 0.5 mg/0.5 ml ISec IVP PRN ×5 (03:19→23:31)
[2018-04-15] MEDS: (Novolin R) Insulin Human Regular 100 units/ml vial SC SCH ×4 (07:51→21:46)
[2018-04-15] MEDS: Nystatin 100,000 Units/ml Oral Susp 5 ml UD PO SCH ×4 (09:12→21:58)
[2018-04-15] MEDS: MethylPREDNISolone 40 mg Vial IVP SCH (09:12)
[2018-04-15] MEDS: Pantoprazole 40 mg EC Tab PO SCH (09:12)
[2018-04-15] MEDS: guaiFENesin 600 mg ER Tab PO SCH ×2 (09:12→18:10)
--- NOTE | 2018-04-15 12:29 | CP.PCM.PN ---
Subjective - Date & Time of Evaluation Date of Evaluation: 04/15/18 Time of Evaluation: 09:40 - Subjective Subjective: Patient seen and examined Denies shortness of breath but still has cough with secretions Afebrile Objective - Vital Signs/Intake and Output Vital Signs (last 24 hours): Temp Pulse Resp BP Pulse Ox 98.6 F 74 20 104/71 97 04/15/18 07:00 04/15/18 08:05 04/15/18 08:05 04/15/18 08:05 04/15/18 07:00 Intake and Output: 04/15/18 04/15/18 06:59 18:59 Intake Total 300 Output Total 350 Balance -50 - Medications Medications: Current Medications Acetylcysteine (Acetylcysteine 20%) 4 ml INH RQ4 [facility] Last Admin: 04/15/18 07:10 Dose: 4 ml Albuterol/Ipratropium (Duoneb 3 Mg/0.5 Mg (3 Ml) Ud) 3 ml INH RQ4 [facility] Last Admin: 04/15/18 07:10 Dose: 3 ml Gabapentin (Neurontin) 800 mg PO TID [facility] Last Admin: 04/15/18 09:12 Dose: 800 mg Guaifenesin (Mucinex La) 600 mg PO BID [facility] Last Admin: 04/15/18 09:12 Dose: 600 mg Hydromorphone HCl (Dilaudid) 0.5 mg IVP Q4H PRN PRN Reason: Pain, severe (8-10) Last Admin: 04/15/18 08:02 Dose: 0.5 mg Meropenem 1 gm/ Sodium (Chloride) 100 mls @ 66.667 mls/hr IVPB Q8H [facility]; Protocol Last Admin: 04/15/18 07:55 Dose: 66.667 mls/hr Insulin Glargine (Lantus) 24 unit SC HS [facility] Last Admin: 04/14/18 21:53 Dose: 24 unit Insulin Human Regular (Novolin R) 0 unit SC ACHS [facility]; Protocol Last Admin: 04/15/18 07:51 Dose: Not Given Methylprednisolone (Solu-Medrol) 60 mg IVP DAILY [facility] Last Admin: 04/15/18 09:12 Dose: 60 mg Montelukast Sodium (Singulair) 10 mg PO HS [facility] Last Admin: 04/14/18 21:53 Dose: 10 mg Nystatin (Nystatin Oral Susp) 5 ml PO QID [facility] Last Admin: 04/15/18 09:12 Dose: 5 ml Pantoprazole Sodium (Protonix Ec Tab) 40 mg PO DAILY [facility] Last Admin: 04/15/18 09:12 Dose: 40 mg Quetiapine Fumarate (Seroquel) 400 mg PO BID [facility] Last Admin: 04/15/18 09:12 Dose: 400 mg Trazodone HCl (Desyrel) 150 mg PO HS [facility] Last Admin: 04/14/18 21:53 Dose: 150 mg - Labs Labs: 04/12/18 07:03 04/12/18 07:03 PT 10.9 SECONDS (9.7-12.2) 04/06/18 00:44 INR 1.0 04/06/18 00:44 APTT 35 SECONDS (21-34) H 04/06/18 00:44 - Head Exam Head Exam: ATRAUMATIC, NORMOCEPHALIC - ENT Exam ENT Exam: Mucous Membranes Moist - Neck Exam Neck Exam: Normal Inspection - Respiratory Exam Respiratory Exam: Rhonchi - Cardiovascular Exam Cardiovascular Exam: REGULAR RHYTHM Assessment and Plan (1) COPD exacerbation Assessment & Plan: Taper steroids and continue nebulizer treatment Fenestrated trach Status: Acute (2) Tracheostomy dependence Status: Acute (3) Tracheobronchitis Status: Acute
--- NOTE | 2018-04-15 12:59 | CP.PCM.PN ---
Subjective - Date & Time of Evaluation Date of Evaluation: 04/15/18 Time of Evaluation: 12:59 - Subjective Subjective: afebrile, comfortable +ve cough /secretions. +VE TRACH IN POSITION. CXR 04/11/18 NAD. 04/11/18 SPUTUM TRACH +VE PROTEUS MIRABLIS Objective - Vital Signs/Intake and Output Vital Signs (last 24 hours): Temp Pulse Resp BP Pulse Ox 98.6 F 75 20 128/74 96 04/15/18 12:28 04/15/18 12:28 04/15/18 12:28 04/15/18 12:28 04/15/18 12:28 Intake and Output: 04/15/18 04/15/18 06:59 18:59 Intake Total 300 Output Total 350 Balance -50 - Medications Medications: Current Medications Acetylcysteine (Acetylcysteine 20%) 4 ml INH RQ4 [facility] Last Admin: 04/15/18 07:10 Dose: 4 ml Albuterol/Ipratropium (Duoneb 3 Mg/0.5 Mg (3 Ml) Ud) 3 ml INH RQ4 [facility] Last Admin: 04/15/18 07:10 Dose: 3 ml Gabapentin (Neurontin) 800 mg PO TID [facility] Last Admin: 04/15/18 09:12 Dose: 800 mg Guaifenesin (Mucinex La) 600 mg PO BID [facility] Last Admin: 04/15/18 09:12 Dose: 600 mg Hydromorphone HCl (Dilaudid) 0.5 mg IVP Q4H PRN PRN Reason: Pain, severe (8-10) Last Admin: 04/15/18 12:30 Dose: 0.5 mg Meropenem 1 gm/ Sodium (Chloride) 100 mls @ 66.667 mls/hr IVPB Q8H [facility]; Protocol Last Admin: 04/15/18 07:55 Dose: 66.667 mls/hr Insulin Glargine (Lantus) 24 unit SC HS [facility] Last Admin: 04/14/18 21:53 Dose: 24 unit Insulin Human Regular (Novolin R) 0 unit SC A[facility]S [facility]; Protocol Last Admin: 04/15/18 12:31 Dose: 6 units Methylprednisolone (Solu-Medrol) 60 mg IVP DAILY [facility] Last Admin: 04/15/18 09:12 Dose: 60 mg Montelukast Sodium (Singulair) 10 mg PO [facility] Last Admin: 04/14/18 21:53 Dose: 10 mg Nystatin (Nystatin Oral Susp) 5 ml PO QID [facility] Last Admin: 04/15/18 09:12 Dose: 5 ml Pantoprazole Sodium (Protonix Ec Tab) 40 mg PO DAILY [facility] Last Admin: 04/15/18 09:12 Dose: 40 mg Quetiapine Fumarate (Seroquel) 400 mg PO BID [facility] Last Admin: 04/15/18 09:12 Dose: 400 mg Trazodone HCl (Desyrel) 150 mg PO [facility] Last Admin: 04/14/18 21:53 Dose: 150 mg - Labs Labs: 04/12/18 07:03 04/12/18 07:03 PT 10.9 SECONDS (9.7-12.2) 04/06/18 00:44 INR 1.0 04/06/18 00:44 APTT 35 SECONDS (21-34) H 04/06/18 00:44 - Constitutional Appears: No Acute Distress - Head Exam Head Exam: NORMAL INSPECTION - Eye Exam Eye Exam: EOMI, PERRL - ENT Exam ENT Exam: Mucous Membranes Moist, Normal Oropharynx - Neck Exam Neck Exam: Normal Inspection. absent: Lymphadenopathy (TRACH IN POSITION.) - Respiratory Exam Respiratory Exam: absent: Accessory Muscle Use (BETTER AERATION LOWER LUNG B ASES.) - Cardiovascular Exam Cardiovascular Exam: REGULAR RHYTHM, +S1, +S2 - GI/Abdominal Exam GI & Abdominal Exam: Soft, Normal Bowel Sounds - Extremities Exam Extremities Exam: Normal Capillary Refill. absent: Calf Tenderness, Pedal Edema - Neurological Exam Neurological Exam: Alert, Awake, Oriented x3 - Psychiatric Exam Psychiatric exam: Normal Mood - Skin Skin Exam: Normal Color, Warm Assessment and Plan (1) Pneumonia Status: Acute (2) Tracheobronchitis Status: Acute (3) COPD exacerbation Status: Acute (4) Respiratory distress Status: Acute (5) Tracheostomy dependence Status: Acute (6) Sleep apnea syndrome Status: Acute - Assessment and Plan (Free Text) Plan: CONTINUE IV MERREM 1GM IVPB Q 8HRLY 04/10/18 X TOTAL OF 8 DAYS ( LAST DAY 04/17/18 ) ON SOLUMEDROL 60MG IVPB QD DAILY PER PULMONARY. TAPER STEROIDSAND SEE IF SHE TOLERATES. CHECK CBC/BMP. PROCALCITONIN LEVELS IN AM. CONTINUE NYSTATIN 5ML S/S QID X 5 DAYS 04/13/18 CONTACT ISOLATION PULMONARY TOILET /DUONEB TREATMENTS.
--- NOTE | 2018-04-15 20:36 | CP.PCM.PN ---
Subjective - Date & Time of Evaluation Date of Evaluation: 04/15/18 Time of Evaluation: 08:20 - Subjective Subjective: dictated Objective - Vital Signs/Intake and Output Vital Signs (last 24 hours): Temp Pulse Resp BP Pulse Ox 98.3 F 79 20 110/73 97 04/15/18 16:28 04/15/18 16:28 04/15/18 16:28 04/15/18 16:28 04/15/18 16:28 Intake and Output: 04/15/18 04/16/18 18:59 06:59 Intake Total 580 Balance 580 - Medications Medications: Current Medications Acetylcysteine (Acetylcysteine 20%) 4 ml INH RQ4 [facility] Last Admin: 04/15/18 19:06 Dose: 4 ml Albuterol/Ipratropium (Duoneb 3 Mg/0.5 Mg (3 Ml) Ud) 3 ml INH RQ4 [facility] Last Admin: 04/15/18 19:06 Dose: 3 ml Gabapentin (Neurontin) 800 mg PO TID [facility] Last Admin: 04/15/18 18:10 Dose: 800 mg Guaifenesin (Mucinex La) 600 mg PO BID [facility] Last Admin: 04/15/18 18:10 Dose: 600 mg Hydromorphone HCl (Dilaudid) 0.5 mg IVP Q4H PRN PRN Reason: Pain, severe (8-10) Last Admin: 04/15/18 18:13 Dose: 0.5 mg Meropenem 1 gm/ Sodium (Chloride) 100 mls @ 66.667 mls/hr IVPB Q8H [facility]; Protocol Last Admin: 04/15/18 18:13 Dose: 66.667 mls/hr Insulin Glargine (Lantus) 24 unit SC HS [facility] Last Admin: 04/14/18 21:53 Dose: 24 unit Insulin Human Regular (Novolin R) 0 unit SC ACHS [facility]; Protocol Last Admin: 04/15/18 18:21 Dose: 10 units Methylprednisolone (Solu-Medrol) 60 mg IVP DAILY [facility] Last Admin: 04/15/18 09:12 Dose: 60 mg Montelukast Sodium (Singulair) 10 mg PO HS [facility] Last Admin: 04/14/18 21:53 Dose: 10 mg Nystatin (Nystatin Oral Susp) 5 ml PO QID [facility] Last Admin: 04/15/18 18:13 Dose: 5 ml Pantoprazole Sodium (Protonix Ec Tab) 40 mg PO DAILY [facility] Last Admin: 04/15/18 09:12 Dose: 40 mg Quetiapine Fumarate (Seroquel) 400 mg PO BID [facility] Last Admin: 04/15/18 18:09 Dose: 400 mg Trazodone HCl (Desyrel) 150 mg PO HS [facility] Last Admin: 04/14/18 21:53 Dose: 150 mg - Labs Labs: 04/12/18 07:03 04/12/18 07:03 PT 10.9 SECONDS (9.7-12.2) 04/06/18 00:44 INR 1.0 04/06/18 00:44 APTT 35 SECONDS (21-34) H 04/06/18 00:44
[2018-04-15] MEDS: (Lantus) Insulin Glargine, Recombinant SC SCH (21:58)
--- NOTE | 2018-04-15 23:43 | PN ---
DATE: 04/15/2018 SUBJECTIVE: The patient has decreased sputum production. Sputum cultures repeat are still positive for gram-negative bacilli. The patient is afebrile, on Merrem. She was seen by ID and Pulmonary. No nausea or vomiting. She is coughing. She is wheezing. PHYSICAL EXAMINATION: VITAL SIGNS: Blood pressure 110/73, pulse 79, respiratory rate 20, temperature 98.3. LUNGS: Bilateral decreased air entry. Positive inspiratory and expiratory rhonchi. CARDIOVASCULAR SYSTEM: PMI not localized. S1, S2 regular. ABDOMEN: Soft, nontender. Bowel sounds are positive. EXTREMITIES: No clubbing, cyanosis, or edema. ASSESSMENT: 1. Exacerbation of bronchial asthma. 2. Tracheobronchitis, rule out pneumonia. 3. Hypotension. 4. Morbid obesity. 5. Diabetes. PLAN: Continue IV antibiotics. Await for culture. Discussed with ID. Proteus mirabilis is again growing, which is again sensitive to Zosyn, Merrem, and ertapenem. The patient is on Merrem. Ad Khan MD
--- NOTE | 2018-04-15 23:52 | CP.PCM.PN ---
Subjective - Date & Time of Evaluation Date of Evaluation: 04/15/18 Time of Evaluation: 13:20 - Subjective Subjective: Patient seen and evaluated Comfortable No cardiac events noted Objective - Vital Signs/Intake and Output Vital Signs (last 24 hours): Temp Pulse Resp BP Pulse Ox 98.3 F 79 20 110/73 97 04/15/18 16:28 04/15/18 16:28 04/15/18 16:28 04/15/18 16:28 04/15/18 16:28 Intake and Output: 04/15/18 04/16/18 18:59 06:59 Intake Total 580 Balance 580 - Medications Medications: Current Medications Acetylcysteine (Acetylcysteine 20%) 4 ml INH RQ4 [facility] Last Admin: 04/15/18 19:06 Dose: 4 ml Albuterol/Ipratropium (Duoneb 3 Mg/0.5 Mg (3 Ml) Ud) 3 ml INH RQ4 [facility] Last Admin: 04/15/18 19:06 Dose: 3 ml Gabapentin (Neurontin) 800 mg PO TID [facility] Last Admin: 04/15/18 18:10 Dose: 800 mg Guaifenesin (Mucinex La) 600 mg PO BID [facility] Last Admin: 04/15/18 18:10 Dose: 600 mg Hydromorphone HCl (Dilaudid) 0.5 mg IVP Q4H PRN PRN Reason: Pain, severe (8-10) Last Admin: 04/15/18 23:31 Dose: 0.5 mg Meropenem 1 gm/ Sodium (Chloride) 100 mls @ 66.667 mls/hr IVPB Q8H [facility]; P rotocol Last Admin: 04/15/18 23:27 Dose: 66.667 mls/hr Insulin Glargine (Lantus) 24 unit SC HS [facility] Last Admin: 04/15/18 21:58 Dose: 24 unit Insulin Human Regular (Novolin R) 0 unit SC ACHS [facility]; Protocol Last Admin: 04/15/18 21:46 Dose: Not Given Methylprednisolone (Solu-Medrol) 60 mg IVP DAILY [facility] Last Admin: 04/15/18 09:12 Dose: 60 mg Montelukast Sodium (Singulair) 10 mg PO HS [facility] Last Admin: 04/15/18 21:58 Dose: 10 mg Nystatin (Nystatin Oral Susp) 5 ml PO QID [facility] Last Admin: 04/15/18 21:58 Dose: 5 ml Pantoprazole Sodium (Protonix Ec Tab) 40 mg PO DAILY [facility] Last Admin: 04/15/18 09:12 Dose: 40 mg Quetiapine Fumarate (Seroquel) 400 mg PO BID [facility] Last Admin: 04/15/18 18:09 Dose: 400 mg Trazodone HCl (Desyrel) 150 mg PO HS [facility] Last Admin: 04/15/18 21:58 Dose: 150 mg - Labs Labs: 04/12/18 07:03 04/12/18 07:03 PT 10.9 SECONDS (9.7-12.2) 04/06/18 00:44 INR 1.0 04/06/18 00:44 APTT 35 SECONDS (21-34) H 04/06/18 00:44
[2018-04-16] MEDS: Acetylcysteine 20% Inhal Soln (4ml) INH SCH ×5 (00:40→16:10)
[2018-04-16] MEDS: Albuterol-Ipratrop 3 mg / 0.5 (3 ml) UD INH SCH ×4 (00:40→11:35)
[2018-04-16] MEDS: HYDROmorphone 0.5 mg/0.5 ml ISec IVP PRN ×4 (03:34→19:50)
[2018-04-16 07:26] LABS: BASO % 0.2 % (0.0-2.0); EOS # 0.1 K/uL (0.0-0.7); EOS % 0.6 % (0.0-4.0); HEMOGLOBIN 11.5 g/dL (11.0-16.0); LYMPH # 2.2 K/uL (1.0-4.3); LYMPH % 19.4 % (20.0-40.0); MEAN CELL VOLUME 80.4 fL (81.0-99.0); MEAN CORPUSCULAR HEMOGLOBIN 25.4 pg (27.0-31.0); MEAN CORPUSCULAR HGB CONC 31.6 g/dL (33.0-37.0); MEAN PLATELET VOLUME 8.7 fL (7.2-11.7); MONO # 0.7 K/uL (0.0-0.8); MONO % 5.7 % (0.0-10.0); NEUT # 8.6 K/uL (1.8-7.0); NEUT % 74.1 % (50.0-75.0); RBC 4.51 Mil/uL (3.80-5.20); RED CELL DISTRIBUTION WIDTH 15.8 % (11.5-14.5); WHITE BLOOD COUNT 11.5 K/uL (4.8-10.8)
[2018-04-16 07:30] LABS: BLOOD UREA NITROGEN 24 mg/dL (7-17); CALCIUM 9.2 mg/dl (8.6-10.4); GFR NON-AFRICAN AMERICAN > 60
[2018-04-16] MEDS: (Novolin R) Insulin Human Regular 100 units/ml vial SC SCH ×4 (07:37→21:44)
[2018-04-16] MEDS: Meropenem 1 GM in Sodium Chloride 0.9% 100 ML IVPB SCH ×3 (08:15→23:23)
[2018-04-16] MEDS: Nystatin 100,000 Units/ml Oral Susp 5 ml UD PO SCH ×4 (10:50→21:44)
[2018-04-16] MEDS: guaiFENesin 600 mg ER Tab PO SCH ×2 (10:50→18:15)
[2018-04-16] MEDS: MethylPREDNISolone 40 mg Vial IVP SCH (10:51)
[2018-04-16] MEDS: Pantoprazole 40 mg EC Tab PO SCH (10:51)
--- NOTE | 2018-04-16 15:52 | CP.PCM.PN ---
Subjective - Date & Time of Evaluation Date of Evaluation: 04/16/18 Time of Evaluation: 11:00 - Subjective Subjective: Patient seen and examined at bedside Patient is awake and responsive She states she still has pain in her throat and is having trouble breathing She is afebrile with saturation at 95% Still having issues with secretion in ET tube Physical Exam Gen: AAOx3, anxious Cardio: RRR, no murmur Pulm: Wheezing bilaterally A/P COPD -Duoneb Q4h -taper steroids -Singulair 10mg Tracheostomy -continue tracheostomy care with increased suctioning - fenestrated trach -chest xray on 04/11/18 showed no active pulmonary disease and a stable position of tracheostomy device. Objective - Vital Signs/Intake and Output Vital Signs (last 24 hours): Temp Pulse Resp BP Pulse Ox 97.7 F 67 20 115/67 97 04/16/18 08:00 04/16/18 08:00 04/16/18 08:00 04/16/18 08:00 04/16/18 08:00 - Medications Medications: Current Medications Acetylcysteine (Acetylcysteine 20%) 4 ml INH RQ4 [facility] Last Admin: 04/16/18 11:35 Dose: 4 ml Gabapentin (Neurontin) 800 mg PO TID [facility] Last Admin: 04/16/18 13:18 Dose: 800 mg Guaifenesin (Mucinex La) 600 mg PO BID [facility] Last Admin: 04/16/18 10:50 Dose: 600 mg Hydromorphone HCl (Dilaudid) 0.5 mg IVP Q4H PRN PRN Reason: Pain, severe (8-10) Last Admin: 04/16/18 12:28 Dose: 0.5 mg Meropenem 1 gm/ Sodium (Chloride) 100 mls @ 66.667 mls/hr IVPB Q8H [facility]; Protocol Last Admin: 04/16/18 08:15 Dose: 66.667 mls/hr Insulin Glargine (Lantus) 24 unit SC HS [facility] Last Admin: 04/15/18 21:58 Dose: 24 unit Insulin Human Regular (Novolin R) 0 unit SC ACHS [facility]; Protocol Last Admin: 04/16/18 12:30 Dose: 3 units Methylprednisolone (Solu-Medrol) 60 mg IVP DAILY [facility] Last Admin: 04/16/18 10:51 Dose: 60 mg Montelukast Sodium (Singulair) 10 mg PO HS [facility] Last Admin: 04/15/18 21:58 Dose: 10 mg Nystatin (Nystatin Oral Susp) 5 ml PO QID [facility] Last Admin: 04/16/18 13:18 Dose: 5 ml Pantoprazole Sodium (Protonix Ec Tab) 40 mg PO DAILY [facility] Last Admin: 04/16/18 10:51 Dose: 40 mg Quetiapine Fumarate (Seroquel) 400 mg PO BID [facility] Last Admin: 04/16/18 10:51 Dose: 400 mg Trazodone HCl (Desyrel) 150 mg PO HS [facility] Last Admin: 04/15/18 21:58 Dose: 150 mg - Labs Labs: 04/16/18 07:06 04/16/18 07:06 PT 10.9 SECONDS (9.7-12.2) 04/06/18 00:44 INR 1.0 04/06/18 00:44 APTT 35 SECONDS (21-34) H 04/06/18 00:44 Assessment and Plan (1) COPD exacerbation Status: Acute (2) Tracheostomy dependence Status: Acute (3) Tracheobronchitis Status: Acute
[2018-04-16] MEDS: (Lantus) Insulin Glargine, Recombinant SC SCH (21:44)
--- NOTE | 2018-04-16 21:44 | CP.PCM.PN ---
Subjective - Date & Time of Evaluation Date of Evaluation: 04/16/18 Time of Evaluation: 21:44 - Subjective Subjective: afebrile with C/O PAIN THROAT/ BLOOD TINGED SECRETIONSL; saturation at 95% Still having issues with secretion in ET tube LABS REVIEWED. CXR 04/11/18 NAD. 04/11/18 SPUTUM TRACH +VE PROTEUS MIRABLIS ? COLONIZATION PROCALCITONIN LEVELS -N Objective - Vital Signs/Intake and Output Vital Signs (last 24 hours): Temp Pulse Resp BP Pulse Ox 98.1 F 81 20 107/70 95 04/16/18 16:00 04/16/18 16:00 04/16/18 16:00 04/16/18 16:00 04/16/18 16:00 - Medications Medications: Current Medications Acetylcysteine (Acetylcysteine 20%) 4 ml INH RQ4 [facility] Last Admin: 04/16/18 16:10 Dose: Not Given Gabapentin (Neurontin) 800 mg PO TID [facility] Last Admin: 04/16/18 18:15 Dose: 800 mg Guaifenesin (Mucinex La) 600 mg PO BID [facility] Last Admin: 04/16/18 18:15 Dose: 600 mg Hydromorphone HCl (Dilaudid) 0.5 mg IVP Q4H PRN PRN Reason: Pain, severe (8-10) Last Admin: 04/16/18 19:50 Dose: 0.5 mg Meropenem 1 gm/ Sodium (Chloride) 100 mls @ 66.667 mls/hr IVPB Q8H [facility]; Protocol Last Admin: 04/16/18 18:12 Dose: 66.667 mls/hr Insulin Glargine (Lantus) 24 unit SC HS [facility] Last Admin: 04/16/18 21:44 Dose: 24 unit Insulin Human Regular (Novolin R) 0 unit SC ACHS [facility]; Protocol Last Admin: 04/16/18 18:14 Dose: 10 units Methylprednisolone (Solu-Medrol) 60 mg IVP DAILY [facility] Last Admin: 04/16/18 10:51 Dose: 60 mg Montelukast Sodium (Singulair) 10 mg PO HS [facility] Last Admin: 04/16/18 21:43 Dose: 10 mg Nystatin (Nystatin Oral Susp) 5 ml PO QID [facility] Last Admin: 04/16/18 18:15 Dose: 5 ml Pantoprazole Sodium (Protonix Ec Tab) 40 mg PO DAILY [facility] Last Admin: 04/16/18 10:51 Dose: 40 mg Quetiapine Fumarate (Seroquel) 400 mg PO BID [facility] Last Admin: 04/16/18 18:15 Dose: 400 mg Trazodone HCl (Desyrel) 150 mg PO HS [facility] Last Admin: 04/16/18 21:44 Dose: 150 mg - Labs Labs: 04/16/18 07:06 04/16/18 07:06 PT 10.9 SECONDS (9.7-12.2) 04/06/18 00:44 INR 1.0 04/06/18 00:44 APTT 35 SECONDS (21-34) H 04/06/18 00:44 - Constitutional Appears: No Acute Distress - Head Exam Head Exam: NORMAL INSPECTION - Eye Exam Eye Exam: EOMI, PERRL - ENT Exam ENT Exam: Mucous Membranes Moist, Normal Oropharynx - Neck Exam Neck Exam: Normal Inspection - Cardiovascular Exam Cardiovascular Exam: REGULAR RHYTHM, +S1, +S2 - GI/Abdominal Exam GI & Abdominal Exam: Soft, Normal Bowel Sounds - Extremities Exam Extremities Exam: Normal Capillary Refill, Pedal Edema. absent: Calf Tenderness - Neurological Exam Neurological Exam: Alert, Awake, CN II-XII Intact, Oriented x3, Reflexes Normal - Psychiatric Exam Psychiatric exam: Normal Mood - Skin Skin Exam: Normal Color, Warm Assessment and Plan (1) Pneumonia Status: Acute (2) Tracheobronchitis Status: Acute (3) COPD exacerbation Status: Acute (4) Respiratory distress Status: Acute (5) Tracheostomy dependence Status: Acute (6) Sleep apnea syndrome Status: Acute - Assessment and Plan (Free Text) Plan: CONTINUE IV MERREM 1GM IVPB Q 8HRLY 04/10/18 X TOTAL OF 8 DAYS ( LAST DAY 04/17/18 ) ON SOLUMEDROL 60MG IVPB QD DAILY PER PULMONARY. TAPER STEROIDS AND SEE IF SHE TOLERATES. CONTINUE NYSTATIN 5ML S/S QID X 5 DAYS 04/13/18 CONSIDER TRANSFERRING PT TO [facility]/ [facility] CASE DISCUSSED W STAFF
--- NOTE | 2018-04-16 21:47 | CP.PCM.PN ---
Subjective - Date & Time of Evaluation Date of Evaluation: 04/16/18 Time of Evaluation: 21:20 - Subjective Subjective: dictated Objective - Vital Signs/Intake and Output Vital Signs (last 24 hours): Temp Pulse Resp BP Pulse Ox 98.1 F 81 20 107/70 95 04/16/18 16:00 04/16/18 16:00 04/16/18 16:00 04/16/18 16:00 04/16/18 16:00 - Medications Medications: Current Medications Acetylcysteine (Acetylcysteine 20%) 4 ml INH RQ4 [facility] Last Admin: 04/16/18 16:10 Dose: Not Given Gabapentin (Neurontin) 800 mg PO TID [facility] Last Admin: 04/16/18 18:15 Dose: 800 mg Guaifenesin (Mucinex La) 600 mg PO BID [facility] Last Admin: 04/16/18 18:15 Dose: 600 mg Hydromorphone HCl (Dilaudid) 0.5 mg IVP Q4H PRN PRN Reason: Pain, severe (8-10) Last Admin: 04/16/18 19:50 Dose: 0.5 mg Meropenem 1 gm/ Sodium (Chloride) 100 mls @ 66.667 mls/hr IVPB Q8H [facility]; Protocol Last Admin: 04/16/18 18:12 Dose: 66.667 mls/hr Insulin Glargine (Lantus) 24 unit SC [facility] Last Admin: 04/16/18 21:44 Dose: 24 unit Insulin Human Regular (Novolin R) 0 unit SC [facility]; Protocol Last Admin: 04/16/18 21:44 Dose: 2 units Methylprednisolone (Solu-Medrol) 60 mg IVP DAILY [facility] Last Admin: 04/16/18 10:51 Dose: 60 mg Montelukast Sodium (Singulair) 10 mg PO HS [facility] Last Admin: 04/16/18 21:43 Dose: 10 mg Nystatin (Nystatin Oral Susp) 5 ml PO QID [facility] Last Admin: 04/16/18 21:44 Dose: 5 ml Pantoprazole Sodium (Protonix Ec Tab) 40 mg PO DAILY [facility] Last Admin: 04/16/18 10:51 Dose: 40 mg Quetiapine Fumarate (Seroquel) 400 mg PO BID [facility] Last Admin: 04/16/18 18:15 Dose: 400 mg Trazodone HCl (Desyrel) 150 mg PO HS [facility] Last Admin: 04/16/18 21:44 Dose: 150 mg - Labs Labs: 04/16/18 07:06 04/16/18 07:06 PT 10.9 SECONDS (9.7-12.2) 04/06/18 00:44 INR 1.0 04/06/18 00:44 APTT 35 SECONDS (21-34) H 04/06/18 00:44
[2018-04-17] MEDS: Acetylcysteine 20% Inhal Soln (4ml) INH SCH ×6 (00:30→19:16)
[2018-04-17] MEDS: HYDROmorphone 0.5 mg/0.5 ml ISec IVP PRN ×6 (00:33→22:21)
--- NOTE | 2018-04-17 00:58 | PN ---
DATE: 04/16/2018 SUBJECTIVE: The patient continues to have cough, congestion, thick yellow sputum production, recurrent tracheostomy secretion. Cultures are positive for proteus mirabilis, identity and sensitivity. She is afebrile. She is coughing. She is congested. Her secretions are thick. PHYSICAL EXAMINATION: VITAL SIGNS: Blood pressure 107/70, pulse 81, respiratory rate 20, temperature 98.1. LUNGS: Decreased air entry. Positive rhonchi. Positive rales. CARDIOVASCULAR SYSTEM: S1 and S2 regular. ABDOMEN: Soft. Nontender. Bowel sounds are positive. ASSESSMENT: 1. Tracheobronchitis, rule out pneumonia. 2. Acute exacerbation of bronchial asthma. 3. Type 2 diabetes. 4. Hypertension. PLAN: Antibiotics. Infectious Disease followup. Monitor the patient. Ad Khan MD
[2018-04-17] MEDS: (Novolin R) Insulin Human Regular 100 units/ml vial SC SCH ×4 (07:31→22:05)
--- NOTE | 2018-04-17 07:33 | CP.PCM.PN ---
Subjective - Date & Time of Evaluation Date of Evaluation: 04/16/18 Time of Evaluation: 16:20 - Subjective Subjective: Patient seen and evaluated On Trach collar c/o Throat pain Still has some dyspnea Physical Exam - Constitutional Appears: Non-toxic - Respiratory Exam Respiratory Exam: NORMAL BREATHING PATTERN Additional comments: With tracheostomy - Cardiovascular Exam Cardiovascular Exam: REGULAR RHYTHM, +S1, +S2 - GI/Abdominal Exam GI & Abdominal Exam: Normal Bowel Sounds - Extremities Exam Extremities exam: Negative for: pedal edema Assessment & Plan (1) Respiratory distress Assessment and Plan: Patient is a 62 year old female with history of COPD, HTN, CHF, sp tracheostomy who presented for 3 day history of shortness of breath associated with fever, bodyaches Imaging/ Labs: Chest X-ray: Tracheostomy tube. Right-sided PICC. Cardiomegaly. Evidence of multifocal pneumonia Chest CT: Multifocal infiltrates. No evidence of mucous plugging. Mild mediastinal lymphadenopathy. Mild cardiomegaly. Multiple old vertebral compression fractures. Mild hepatosplenomegaly. Tracheostomy noted. Echocardiogram (04/28/17): Mild concentric left ventricular hypertrophy. LV function is normal. LV EF is within normal range. Normal LV segmental wall motion. Aortic valve is moderately calcified and possibly bicuspied, Moderate valvular aortic stenosis Troponin negative X1 Medications: - Acetylcysteine 4ml INH Q6H - Duonebs 3ML INH RQ4H - Azithromycin 500mg IV Q24H - Meropenem 1gm IV Q8H - Vanco 1gm IV Q12H - Singulair 10mg PO HS - Robitussin 200mg PO Q4H PRN Objective - Vital Signs/Intake and Output Vital Signs (last 24 hours): Temp Pulse Resp BP Pulse Ox 97.7 F 71 20 105/57 L 97 04/16/18 23:57 04/16/18 23:57 04/16/18 23:57 04/16/18 23:57 04/16/18 23:57 - Medications Medications: Current Medications Acetylcysteine (Acetylcysteine 20%) 4 ml INH RQ4 [facility] Last Admin: 04/17/18 03:15 Dose: Not Given Gabapentin (Neurontin) 800 mg PO TID [facility] Last Admin: 04/16/18 18:15 Dose: 800 mg Guaifenesin (Mucinex La) 600 mg PO BID [facility] Last Admin: 02/19/19 18:15 Dose: 600 mg Hydromorphone HCl (Dilaudid) 0.5 mg IVP Q4H PRN PRN Reason: Pain, severe (8-10) Last Admin: 04/17/18 04:39 Dose: 0.5 mg Meropenem 1 gm/ Sodium (Chloride) 100 mls @ 66.667 mls/hr IVPB Q8H [facility]; Protocol Last Admin: 04/16/18 23:23 Dose: 66.667 mls/hr Insulin Glargine (Lantus) 24 unit SC [facility] Last Admin: 04/16/18 21:44 Dose: 24 unit Insulin Human Regular (Novolin R) 0 unit SC A[facility]; Protocol Last Admin: 04/17/18 07:31 Dose: Not Given Methylprednisolone (Solu-Medrol) 60 mg IVP DAILY [facility] Last Admin: 04/16/18 10:51 Dose: 60 mg Montelukast Sodium (Singulair) 10 mg PO HS [facility] Last Admin: 04/16/18 21:43 Dose: 10 mg Nystatin (Nystatin Oral Susp) 5 ml PO QID [facility] Last Admin: 04/16/18 21:44 Dose: 5 ml Pantoprazole Sodium (Protonix Ec Tab) 40 mg PO DAILY [facility] Last Admin: 04/16/18 10:51 Dose: 40 mg Quetiapine Fumarate (Seroquel) 400 mg PO BID [facility] Last Admin: 04/16/18 18:15 Dose: 400 mg Trazodone HCl (Desyrel) 150 mg PO [facility] Last Admin: 04/16/18 21:44 Dose: 150 mg - Labs Labs: 04/16/18 07:06 04/16/18 07:06 PT 10.9 SECONDS (9.7-12.2) 04/06/18 00:44 INR 1.0 04/06/18 00:44 APTT 35 SECONDS (21-34) H 04/06/18 00:44
[2018-04-17] MEDS: Albuterol-Ipratrop 3 mg / 0.5 (3 ml) UD INH SCH ×4 (07:45→19:16)
[2018-04-17] MEDS: Meropenem 1 GM in Sodium Chloride 0.9% 100 ML IVPB SCH ×3 (08:38→23:45)
[2018-04-17] MEDS: guaiFENesin 600 mg ER Tab PO SCH ×2 (10:39→18:25)
[2018-04-17] MEDS: Nystatin 100,000 Units/ml Oral Susp 5 ml UD PO SCH ×4 (10:39→22:05)
[2018-04-17] MEDS: MethylPREDNISolone 40 mg Vial IVP SCH ×2 (10:39)
[2018-04-17] MEDS: Pantoprazole 40 mg EC Tab PO SCH (10:39)
--- NOTE | 2018-04-17 15:35 | CP.PCM.PN ---
Subjective - Date & Time of Evaluation Date of Evaluation: 04/17/18 Time of Evaluation: 13:20 - Subjective Subjective: Patient seen and examined at bedside, afebrile. Patient continues to have throat pain and trouble breathing. Physical Exam Gen: alert and awake, no acute distress Cardio: RRR, no murmur Pulm: wheezing, no accessory muscle use GI: soft, nontender A&P 1. COPD -Continue Duoneb -Taper steroids -Continue Singulair 2. Tracheostomy -Continue care, continue suctioning -Fenestrated trach Objective - Vital Signs/Intake and Output Vital Signs (last 24 hours): Temp Pulse Resp BP Pulse Ox 97.5 F L 80 20 116/61 99 04/17/18 07:00 04/17/18 07:00 04/17/18 07:00 04/17/18 07:00 04/17/18 07:00 - Medications Medications: Current Medications Acetylcysteine (Acetylcysteine 20%) 4 ml INH RQ4 [facility] Last Admin: 04/17/18 11:30 Dose: 4 ml Albuterol/Ipratropium (Duoneb 3 Mg/0.5 Mg (3 Ml) Ud) 3 ml INH RQ4 [facility] Last Admin: 04/17/18 11:30 Dose: 3 ml Gabapentin (Neurontin) 800 mg PO TID [facility] Last Admin: 04/17/18 13:08 Dose: 800 mg Guaifenesin (Mucinex La) 600 mg PO BID [facility] Last Admin: 04/17/18 10:39 Dose: 600 mg Hydromorphone HCl (Dilaudid) 0.5 mg IVP Q4H PRN PRN Reason: Pain, severe (8-10) Last Admin: 04/17/18 13:06 Dose: 0.5 mg Meropenem 1 gm/ Sodium (Chloride) 100 mls @ 66.667 mls/hr IVPB Q8H [facility]; Protocol Last Admin: 04/17/18 08:38 Dose: 66.667 mls/hr Insulin Glargine (Lantus) 24 unit SC HS [facility] Last Admin: 04/16/18 21:44 Dose: 24 unit Insulin Human Regular (Novolin R) 0 unit SC [facility]; Protocol Last Admin: 04/17/18 12:30 Dose: 2 units Methylprednisolone (Solu-Medrol) 40 mg IVP DAILY [facility] Last Admin: 04/17/18 10:39 Dose: 40 mg Montelukast Sodium (Singulair) 10 mg PO HS [facility] Last Admin: 04/16/18 21:43 Dose: 10 mg Nystatin (Nystatin Oral Susp) 5 ml PO QID [facility] Last Admin: 04/17/18 13:08 Dose: 5 ml Pantoprazole Sodium (Protonix Ec Tab) 40 mg PO DAILY [facility] Last Admin: 04/17/18 10:39 Dose: 40 mg Quetiapine Fumarate (Seroquel) 400 mg PO BID [facility] Last Admin: 04/17/18 10:39 Dose: 400 mg Trazodone HCl (Desyrel) 150 mg PO HS [facility] Last Admin: 04/16/18 21:44 Dose: 150 mg - Labs Labs: 04/16/18 07:06 04/16/18 07:06 PT 10.9 SECONDS (9.7-12.2) 04/06/18 00:44 INR 1.0 04/06/18 00:44 APTT 35 SECONDS (21-34) H 04/06/18 00:44 Assessment and Plan (1) COPD exacerbation Status: Acute (2) Tracheostomy dependence Status: Acute (3) Tracheobronchitis Status: Acute
--- NOTE | 2018-04-17 17:25 | CP.PCM.PN ---
Subjective - Date & Time of Evaluation Date of Evaluation: 04/17/18 Time of Evaluation: 17:25 - Subjective Subjective: AFEBRILE, AWAKEAND ALERT, RESTING COMFORTABLY. CONTINUES TO COMPLAIN OF THROAT ISSUES. ON IV ABX . CXR NAD. PLAN TO DISCUSS W PULMONARY CPM Objective - Vital Signs/Intake and Output Vital Signs (last 24 hours): Temp Pulse Resp BP Pulse Ox 98.5 F 75 20 113/76 98 04/17/18 16:37 04/17/18 16:37 04/17/18 16:37 04/17/18 16:37 04/17/18 16:37 - Medications Medications: Current Medications Acetylcysteine (Acetylcysteine 20%) 4 ml INH RQ4 [facility] Last Admin: 04/17/18 16:22 Dose: 4 ml Albuterol/Ipratropium (Duoneb 3 Mg/0.5 Mg (3 Ml) Ud) 3 ml INH RQ4 [facility] Last Admin: 04/17/18 16:22 Dose: 3 ml Gabapentin (Neurontin) 800 mg PO TID [facility] Last Admin: 04/17/18 13:08 Dose: 800 mg Guaifenesin (Mucinex La) 600 mg PO BID [facility] Last Admin: 04/17/18 10:39 Dose: 600 mg Hydromorphone HCl (Dilaudid) 0.5 mg IVP Q4H PRN PRN Reason: Pain, severe (8-10) Last Admin: 04/17/18 13:06 Dose: 0.5 mg Meropenem 1 gm/ Sodium (Chloride) 100 mls @ 66.667 mls/hr IVPB Q8H [facility]; Protocol Last Admin: 04/17/18 08:38 Dose: 66.667 mls/hr Insulin Glargine (Lantus) 24 unit SC HS [facility] Last Admin: 04/16/18 21:44 Dose: 24 unit Insulin Human Regular (Novolin R) 0 unit SC ACHS [facility]; Protocol Last Admin: 04/17/18 12:30 Dose: 2 units Methylprednisolone (Solu-Medrol) 40 mg IVP DAILY [facility] Last Admin: 04/17/18 10:39 Dose: 40 mg Montelukast Sodium (Singulair) 10 mg PO HS [facility] Last Admin: 04/16/18 21:43 Dose: 10 mg Nystatin (Nystatin Oral Susp) 5 ml PO QID [facility] Last Admin: 04/17/18 13:08 Dose: 5 ml Pantoprazole Sodium (Protonix Ec Tab) 40 mg PO DAILY [facility] Last Admin: 04/17/18 10:39 Dose: 40 mg Quetiapine Fumarate (Seroquel) 400 mg PO BID [facility] Last Admin: 04/17/18 10:39 Dose: 400 mg Trazodone HCl (Desyrel) 150 mg PO HS [facility] Last Admin: 04/16/18 21:44 Dose: 150 mg - Labs Labs: 04/16/18 07:06 04/16/18 07:06 PT 10.9 SECONDS (9.7-12.2) 04/06/18 00:44 INR 1.0 04/06/18 00:44 APTT 35 SECONDS (21-34) H 04/06/18 00:44 - Constitutional Appears: No Acute Distress - Head Exam Head Exam: NORMAL INSPECTION - Eye Exam Eye Exam: EOMI, PERRL - ENT Exam ENT Exam: Mucous Membranes Moist, Normal Oropharynx (TRACH COLLAR.) - Neck Exam Neck Exam: Normal Inspection - Respiratory Exam Respiratory Exam: Decreased Breath Sounds, NORMAL BREATHING PATTERN. absent: Accessory Muscle Use - Cardiovascular Exam Cardiovascular Exam: REGULAR RHYTHM, +S1, +S2 - GI/Abdominal Exam GI & Abdominal Exam: Soft, Normal Bowel Sounds - Extremities Exam Extremities Exam: Normal Capillary Refill. absent: Calf Tenderness, Pedal Edema - Neurological Exam Neurological Exam: Awake, CN II-XII Intact, Oriented x3, Reflexes Normal - Psychiatric Exam Psychiatric exam: Normal Mood - Skin Skin Exam: Normal Color, Warm Assessment and Plan (1) Pneumonia Status: Acute (2) Tracheobronchitis Status: Acute (3) COPD exacerbation Status: Acute (4) Respiratory distress Status: Acute (5) Tracheostomy dependence Status: Acute (6) Sleep apnea syndrome Status: Acute - Assessment and Plan (Free Text) Plan: CONTINUE IV MERREM 1GM IVPB Q 8HRLY 04/10/18 X TOTAL OF 8 DAYS ( LAST DAY 04/17/18 ) ON SOLUMEDROL 40MG IVPB QD DAILY PER PULMONARY NOW. TAPER STEROIDS AND SEE IF SHE TOLERATES. CONTINUE NYSTATIN 5ML S/S QID X 5 DAYS 04/13/18 PT REFUSING [facility]. CONSIDER TRANSFERRING PT TO [facility].
--- NOTE | 2018-04-17 20:52 | CP.PCM.PN ---
Subjective - Date & Time of Evaluation Date of Evaluation: 04/17/18 Time of Evaluation: 07:20 - Subjective Subjective: dictated Objective - Vital Signs/Intake and Output Vital Signs (last 24 hours): Temp Pulse Resp BP Pulse Ox 98.5 F 75 20 113/76 98 04/17/18 16:37 04/17/18 16:37 04/17/18 16:37 04/17/18 16:37 04/17/18 16:37 - Medications Medications: Current Medications Acetylcysteine (Acetylcysteine 20%) 4 ml INH RQ4 [facility] Last Admin: 04/17/18 19:16 Dose: 4 ml Albuterol/Ipratropium (Duoneb 3 Mg/0.5 Mg (3 Ml) Ud) 3 ml INH RQ4 [facility] Last Admin: 04/17/18 19:16 Dose: 3 ml Gabapentin (Neurontin) 800 mg PO TID [facility] Last Admin: 04/17/18 18:25 Dose: 800 mg Guaifenesin (Mucinex La) 600 mg PO BID [facility] Last Admin: 04/17/18 18:25 Dose: 600 mg Hydromorphone HCl (Dilaudid) 0.5 mg IVP Q4H PRN PRN Reason: Pain, severe (8-10) Last Admin: 04/17/18 18:26 Dose: 0.5 mg Meropenem 1 gm/ Sodium (Chloride) 100 mls @ 66.667 mls/hr IVPB Q8H [facility]; Protocol Last Admin: 04/17/18 18:25 Dose: 66.667 mls/hr Insulin Glargine (Lantus) 24 unit SC [facility] Last Admin: 04/16/18 21:44 Dose: 24 unit Insulin Human Regular (Novolin R) 0 unit SC [facility]; Protocol Last Admin: 04/17/18 18:25 Dose: 8 units Methylprednisolone (Solu-Medrol) 40 mg IVP DAILY [facility] Last Admin: 04/17/18 10:39 Dose: 40 mg Montelukast Sodium (Singulair) 10 mg PO HS [facility] Last Admin: 04/16/18 21:43 Dose: 10 mg Nystatin (Nystatin Oral Susp) 5 ml PO QID [facility] Last Admin: 04/17/18 18:25 Dose: 5 ml Pantoprazole Sodium (Protonix Ec Tab) 40 mg PO DAILY [facility] Last Admin: 04/17/18 10:39 Dose: 40 mg Quetiapine Fumarate (Seroquel) 400 mg PO BID [facility] Last Admin: 04/17/18 18:24 Dose: 400 mg Trazodone HCl (Desyrel) 150 mg PO HS [facility] Last Admin: 04/16/18 21:44 Dose: 150 mg - Labs Labs: 04/16/18 07:06 04/16/18 07:06 PT 10.9 SECONDS (9.7-12.2) 04/06/18 00:44 INR 1.0 04/06/18 00:44 APTT 35 SECONDS (21-34) H 04/06/18 00:44
[2018-04-17] MEDS: (Lantus) Insulin Glargine, Recombinant SC SCH (22:05)
[2018-04-18] MEDS ORDERED: HYDROmorphone 0.5 mg/0.5 ml ISec IVP STA (00:01)
[2018-04-18] MEDS: Albuterol-Ipratrop 3 mg / 0.5 (3 ml) UD INH SCH ×6 (00:10→19:09)
[2018-04-18] MEDS: Acetylcysteine 20% Inhal Soln (4ml) INH SCH ×6 (00:10→19:09)
--- NOTE | 2018-04-18 01:32 | PN ---
DATE: 04/17/2018 SUBJECTIVE: The patient has less cough, less shortness of breath, less wheezing. Repeat cultures are positive for Proteus mirabilis. PHYSICAL EXAMINATION: VITAL SIGNS: Blood pressure 113/76, pulse 71, respiratory rate 20, temperature 98.5. LUNGS: Decreased air entry. Positive rhonchi. CARDIOVASCULAR SYSTEM: S1 and S2, regular. ABDOMEN: Soft. ASSESSMENT: 1. Exacerbation of asthma. 2. Tracheobronchitis, rule out pneumonia. 3. Steroid-induced diabetes. 4. Anxiety and depression. PLAN: Continue current medication. Monitor the patient. Ad Khan MD
[2018-04-18] MEDS: HYDROmorphone 0.5 mg/0.5 ml ISec IVP PRN ×5 (02:27→22:04)
[2018-04-18] MEDS: Meropenem 1 GM in Sodium Chloride 0.9% 100 ML IVPB SCH ×2 (08:36→17:57)
[2018-04-18] MEDS: (Novolin R) Insulin Human Regular 100 units/ml vial SC SCH ×4 (08:36→21:42)
[2018-04-18] MEDS: MethylPREDNISolone 40 mg Vial IVP SCH (09:37)
[2018-04-18] MEDS: Nystatin 100,000 Units/ml Oral Susp 5 ml UD PO SCH ×4 (09:37→22:04)
[2018-04-18] MEDS: guaiFENesin 600 mg ER Tab PO SCH ×2 (09:37→17:57)
[2018-04-18] MEDS: Pantoprazole 40 mg EC Tab PO SCH (09:37)
--- NOTE | 2018-04-18 17:21 | CP.PCM.PN ---
Subjective - Date & Time of Evaluation Date of Evaluation: 04/18/18 Time of Evaluation: 11:00 - Subjective Subjective: Patient seen and examined at bedside Patient is awake and responsive She states she still has pain in her throat and is having trouble breathing She is afebrile with saturation at 95% Still having issues with secretion in ET tube Physical Exam Gen: AAOx3, anxious Cardio: RRR, no murmur Pulm: Wheezing bilaterally A/P COPD -taper steroids -continue duoneb -continue singular Tracheostomy -continue tracheostomy care with increased suctioning -change trach to fenestrated Objective - Vital Signs/Intake and Output Vital Signs (last 24 hours): Temp Pulse Resp BP Pulse Ox 98.6 F 76 20 113/71 97 04/18/18 16:14 04/18/18 16:14 04/18/18 16:14 04/18/18 16:14 04/18/18 16:14 - Medications Medications: Current Medications Acetylcysteine (Acetylcysteine 20%) 4 ml INH RQ4 [facility] Last Admin: 04/18/18 15:39 Dose: 4 ml Albuterol/Ipratropium (Duoneb 3 Mg/0.5 Mg (3 Ml) Ud) 3 ml INH RQ4 [facility] Last Admin: 04/18/18 15:39 Dose: 3 ml Gabapentin (Neurontin) 800 mg PO TID [facility] Last Admin: 04/18/18 13:36 Dose: 800 mg Guaifenesin (Mucinex La) 600 mg PO BID [facility] Last Admin: 04/18/18 09:37 Dose: 600 mg Hydromorphone HCl (Dilaudid) 0.5 mg IVP Q4H PRN PRN Reason: Pain, severe (8-10) Last Admin: 04/18/18 13:32 Dose: 0.5 mg Meropenem 1 gm/ Sodium (Chloride) 100 mls @ 66.667 mls/hr IVPB Q8H [facility]; Protocol Last Admin: 04/18/18 08:36 Dose: 66.667 mls/hr Insulin Glargine (Lantus) 24 unit SC HS [facility] Last Admin: 04/17/18 22:05 Dose: 24 unit Insulin Human Regular (Novolin R) 0 unit SC [facility]; Protocol Last Admin: 04/18/18 12:30 Dose: 3 units Methylprednisolone (Solu-Medrol) 40 mg IVP DAILY [facility] Last Admin: 04/18/18 09:37 Dose: 40 mg Montelukast Sodium (Singulair) 10 mg PO HS [facility] Last Admin: 04/17/18 22:05 Dose: 10 mg Nystatin (Nystatin Oral Susp) 5 ml PO QID [facility] Last Admin: 04/18/18 13:36 Dose: 5 ml Pantoprazole Sodium (Protonix Ec Tab) 40 mg PO DAILY [facility] Last Admin: 04/18/18 09:37 Dose: 40 mg Quetiapine Fumarate (Seroquel) 400 mg PO BID [facility] Last Admin: 04/18/18 09:38 Dose: 400 mg Trazodone HCl (Desyrel) 150 mg PO HS [facility] Last Admin: 04/17/18 22:05 Dose: 150 mg - Labs Labs: 04/16/18 07:06 04/16/18 07:06 PT 10.9 SECONDS (9.7-12.2) 04/06/18 00:44 INR 1.0 04/06/18 00:44 APTT 35 SECONDS (21-34) H 04/06/18 00:44 Assessment and Plan (1) COPD exacerbation Status: Acute (2) Tracheostomy dependence Status: Acute (3) Tracheobronchitis Status: Acute
[2018-04-18] MEDS: (Lantus) Insulin Glargine, Recombinant SC SCH (22:04)
--- NOTE | 2018-04-18 22:42 | CP.PCM.PN ---
Subjective - Date & Time of Evaluation Date of Evaluation: 04/18/18 Time of Evaluation: 12:20 - Subjective Subjective: dictated Objective - Vital Signs/Intake and Output Vital Signs (last 24 hours): Temp Pulse Resp BP Pulse Ox 98.6 F 76 20 113/71 97 04/18/18 16:14 04/18/18 16:14 04/18/18 16:14 04/18/18 16:14 04/18/18 16:14 - Medications Medications: Current Medications Acetylcysteine (Acetylcysteine 20%) 4 ml INH RQ4 [facility] Last Admin: 04/18/18 19:09 Dose: 4 ml Albuterol/Ipratropium (Duoneb 3 Mg/0.5 Mg (3 Ml) Ud) 3 ml INH RQ4 [facility] Last Admin: 04/18/18 19:09 Dose: 3 ml Gabapentin (Neurontin) 800 mg PO TID [facility] Last Admin: 04/18/18 17:57 Dose: 800 mg Guaifenesin (Mucinex La) 600 mg PO BID [facility] Last Admin: 04/18/18 17:57 Dose: 600 mg Hydromorphone HCl (Dilaudid) 0.5 mg IVP Q4H PRN PRN Reason: Pain, severe (8-10) Last Admin: 04/18/18 22:04 Dose: 0.5 mg Meropenem 1 gm/ Sodium (Chloride) 100 mls @ 66.667 mls/hr IVPB Q8H [facility]; Protocol Last Admin: 04/18/18 17:57 Dose: 66.667 mls/hr Insulin Glargine (Lantus) 24 unit SC [facility] Last Admin: 04/18/18 22:04 Dose: 24 unit Insulin Human Regular (Novolin R) 0 unit SC [facility]; Protocol Last Admin: 04/18/18 21:42 Dose: Not Given Methylprednisolone (Solu-Medrol) 40 mg IVP DAILY [facility] Last Admin: 04/18/18 09:37 Dose: 40 mg Montelukast Sodium (Singulair) 10 mg PO HS [facility] Last Admin: 04/18/18 22:04 Dose: 10 mg Nystatin (Nystatin Oral Susp) 5 ml PO QID [facility] Last Admin: 04/18/18 22:04 Dose: 5 ml Pantoprazole Sodium (Protonix Ec Tab) 40 mg PO DAILY [facility] Last Admin: 04/18/18 09:37 Dose: 40 mg Quetiapine Fumarate (Seroquel) 400 mg PO BID [facility] Last Admin: 04/18/18 17:57 Dose: 400 mg Trazodone HCl (Desyrel) 150 mg PO HS [facility] Last Admin: 04/18/18 22:04 Dose: 150 mg - Labs Labs: 04/16/18 07:06 04/16/18 07:06 PT 10.9 SECONDS (9.7-12.2) 04/06/18 00:44 INR 1.0 04/06/18 00:44 APTT 35 SECONDS (21-34) H 04/06/18 00:44
[2018-04-19] MEDS: Acetylcysteine 20% Inhal Soln (4ml) INH SCH ×6 (00:47→19:16)
[2018-04-19] MEDS: Albuterol-Ipratrop 3 mg / 0.5 (3 ml) UD INH SCH ×6 (00:51→19:16)
[2018-04-19] MEDS: Meropenem 1 GM in Sodium Chloride 0.9% 100 ML IVPB SCH ×3 (01:22→19:24)
--- NOTE | 2018-04-19 01:38 | PN ---
DATE: 04/18/2018 SUBJECTIVE: The patient is off antibiotics. She is afebrile. Less short of breath. Less cough. Less wheezing. She is here for discharge. PHYSICAL EXAMINATION: VITAL SIGNS: Blood pressure 113/71, pulse 73, respiratory rate 20, temperature 98.6. LUNGS: air entry. Positive rhonchi. CARDIOVASCULAR SYSTEM: S1 and S2, regular. ABDOMEN: Soft. ASSESSMENT: 1. Exacerbation of asthma. 2. Tracheobronchitis, rule out pneumonia. 3. Diabetes. 4. Hypertension. PLAN: Continue current medications, taper steroid. Monitor the patient. Ad Khan MD
[2018-04-19] MEDS: HYDROmorphone 0.5 mg/0.5 ml ISec IVP PRN ×3 (01:58→10:38)
[2018-04-19 07:58] VITALS: RESP 20
[2018-04-19] MEDS: Pantoprazole 40 mg EC Tab PO SCH (10:33)
[2018-04-19] MEDS: guaiFENesin 600 mg ER Tab PO SCH ×2 (10:33→19:25)
[2018-04-19] MEDS: Nystatin 100,000 Units/ml Oral Susp 5 ml UD PO SCH ×2 (10:34→22:19)
[2018-04-19] MEDS: MethylPREDNISolone 40 mg Vial IVP SCH (10:36)
[2018-04-19] MEDS: (Novolin R) Insulin Human Regular 100 units/ml vial SC SCH ×3 (10:37→22:19)
--- NOTE | 2018-04-19 11:44 | CP.PCM.PN ---
Subjective - Date & Time of Evaluation Date of Evaluation: 04/19/18 Time of Evaluation: 09:35 - Subjective Subjective: Patient seen and examined at bedside Patient is awake and responsive She is reporting depression due to her condition and is very upset She is afebrile with saturation at 95% Very thick secretions in trach Physical Exam Gen: AAOx3, anxious Cardio: RRR, no murmur Pulm: Wheezing bilaterally A/P COPD -taper steroids -continue duoneb -continue singular Tracheostomy -continue tracheostomy care with increased suctioning -was told there are no fenestrated trachs. Will change to a passy-oly valve Objective - Vital Signs/Intake and Output Vital Signs (last 24 hours): Temp Pulse Resp BP Pulse Ox 97.9 F 78 20 117/75 98 04/19/18 07:00 04/19/18 07:00 04/19/18 07:00 04/19/18 07:00 04/19/18 07:00 Intake and Output: 04/19/18 04/19/18 06:59 18:59 Intake Total 160 Output Total 920 Balance -760 - Medications Medications: Current Medications Acetylcysteine (Acetylcysteine 20%) 4 ml INH RQ4 [facility] Last Admin: 04/19/18 07:35 Dose: 4 ml Albuterol/Ipratropium (Duoneb 3 Mg/0.5 Mg (3 Ml) Ud) 3 ml INH RQ4 [facility] Last Admin: 04/19/18 07:35 Dose: 3 ml Gabapentin (Neurontin) 800 mg PO TID [facility] Last Admin: 04/19/18 10:33 Dose: 800 mg Guaifenesin (Mucinex La) 600 mg PO BID [facility] Last Admin: 04/19/18 10:33 Dose: 600 mg Hydromorphone HCl (Dilaudid) 0.5 mg IVP Q4H PRN PRN Reason: Pain, severe (8-10) Last Admin: 04/19/18 10:38 Dose: 0.5 mg Meropenem 1 gm/ Sodium (Chloride) 100 mls @ 66.667 mls/hr IVPB Q8H [facility]; Protocol Last Admin: 04/19/18 10:42 Dose: 66.667 mls/hr Insulin Glargine (Lantus) 24 unit SC HS [facility] Last Admin: 04/18/18 22:04 Dose: 24 unit Insulin Human Regular (Novolin R) 0 unit SC ACHS [facility]; Protocol Last Admin: 04/19/18 11:07 Dose: Not Given Methylprednisolone (Solu-Medrol) 40 mg IVP DAILY [facility] Last Admin: 04/19/18 10:36 Dose: 40 mg Montelukast Sodium (Singulair) 10 mg PO HS [facility] Last Admin: 04/18/18 22:04 Dose: 10 mg Nystatin (Nystatin Oral Susp) 5 ml PO QID [facility] Last Admin: 04/19/18 10:34 Dose: 5 ml Pantoprazole Sodium (Protonix Ec Tab) 40 mg PO DAILY [facility] Last Admin: 04/19/18 10:33 Dose: 40 mg Quetiapine Fumarate (Seroquel) 400 mg PO BID [facility] Last Admin: 04/19/18 10:33 Dose: 400 mg Trazodone HCl (Desyrel) 150 mg PO HS [facility] Last Admin: 04/18/18 22:04 Dose: 150 mg - Labs Labs: 04/16/18 07:06 04/16/18 07:06 PT 10.9 SECONDS (9.7-12.2) 04/06/18 00:44 INR 1.0 04/06/18 00:44 APTT 35 SECONDS (21-34) H 04/06/18 00:44 Assessment and Plan (1) COPD exacerbation Status: Acute (2) Tracheostomy dependence Status: Acute (3) Tracheobronchitis Status: Acute
--- NOTE | 2018-04-19 13:09 | CP.PCM.PN ---
Subjective - Date & Time of Evaluation Date of Evaluation: 04/19/18 Time of Evaluation: 13:09 Objective - Vital Signs/Intake and Output Vital Signs (last 24 hours): Temp Pulse Resp BP Pulse Ox 97.9 F 78 20 117/75 98 04/19/18 07:00 04/19/18 07:00 04/19/18 07:00 04/19/18 07:00 04/19/18 07:00 Intake and Output: 04/19/18 04/19/18 06:59 18:59 Intake Total 160 Output Total 920 Balance -760 - Medications Medications: Current Medications Acetylcysteine (Acetylcysteine 20%) 4 ml INH RQ4 SHAYLA Last Admin: 04/19/18 11:15 Dose: 4 ml Albuterol/Ipratropium (Duoneb 3 Mg/0.5 Mg (3 Ml) Ud) 3 ml INH RQ4 SHAYLA Last Admin: 04/19/18 11:15 Dose: 3 ml Gabapentin (Neurontin) 800 mg PO TID [facility] Last Admin: 04/19/18 10:33 Dose: 800 mg Guaifenesin (Mucinex La) 600 mg PO BID [facility] Last Admin: 04/19/18 10:33 Dose: 600 mg Hydromorphone HCl (Dilaudid) 0.5 mg IVP Q4H PRN PRN Reason: Pain, severe (8-10) Last Admin: 04/19/18 10:38 Dose: 0.5 mg Meropenem 1 gm/ Sodium (Chloride) 100 mls @ 66.667 mls/hr IVPB Q8H [facility]; Protocol Last Admin: 04/19/18 10:42 Dose: 66.667 mls/hr Insulin Glargine (Lantus) 24 unit [facility] Last Admin: 04/18/18 22:04 Dose: 24 unit Insulin Human Regular (Novolin R) 0 unit SC [facility]; Protocol Last Admin: 04/19/18 11:07 Dose: Not Given Methylprednisolone (Solu-Medrol) 40 mg IVP DAILY [facility] Last Admin: 04/19/18 10:36 Dose: 40 mg Montelukast Sodium (Singulair) 10 mg PO HS [facility] Last Admin: 04/18/18 22:04 Dose: 10 mg Nystatin (Nystatin Oral Susp) 5 ml PO QID [facility] Last Admin: 04/19/18 10:34 Dose: 5 ml Pantoprazole Sodium (Protonix Ec Tab) 40 mg PO DAILY [facility] Last Admin: 04/19/18 10:33 Dose: 40 mg Quetiapine Fumarate (Seroquel) 400 mg PO BID [facility] Last Admin: 04/19/18 10:33 Dose: 400 mg Trazodone HCl (Desyrel) 150 mg PO HS [facility]AYLA Last Admin: 04/18/18 22:04 Dose: 150 mg - Labs Labs: 04/16/18 07:06 04/16/18 07:06 PT 10.9 SECONDS (9.7-12.2) 04/06/18 00:44 INR 1.0 04/06/18 00:44 APTT 35 SECONDS (21-34) H 04/06/18 00:44 Assessment and Plan - Assessment and Plan (Free Text) Assessment: FOLLOW UP WITH DR HUGGINS IN HIS OFFICE ------CALL FOR APPOINTMENT FOLLOW UP WITH DR SINGLETON IN HIS OFFICE NEXT WEEK ------CALL FOR APPOINTMENT ADDRESS YOUR TRACH AT YOUR VISIT CONTINUE HOME MEDICATION ACTIVITY TOLERATED TRACH CARE INSTRUCTED CALL DR HUGGINS OR GO TO THE EMERGENCY ROOM IF SYMPTOM RETURN OR WORSENING
[2018-04-19 17:00] VITALS: BP 118/70; PULSE 84; TEMP 98.6; O2SAT 95
--- NOTE | 2018-04-19 20:49 | CP.PCM.DIS ---
Provider - Provider Date of Admission: 04/06/18 02:38 Attending physician: Ad Khan MD Consults: 04/07/18 19:57 Cardiology Consult Routine Comment: Consulting Provider: Hardy Dietz Consulting Physician: Hardy Dietz Reason for Consult: hypertension Pulmonology Consult Routine Comment: Consulting Provider: Rodo Rosado Consulting Physician: Rodo Rosado Reason for Consult: pneumonia 04/10/18 13:37 Physician Consult Routine Comment: Consulting Provider: Wayne Celis Consulting Physician: Wayne Celis Reason for Consult: respiratory infection 04/17/18 06:48 Cardiology Consult Routine Comment: Please notify Dr. Sherman Consulting Provider: Ruchi Sherman Consulting Physician: Ruchi Sherman Reason for Consult: Cardiology coverage. I am out of town till April 26 Time Spent in preparation of Discharge (in minutes): 30 Hospital Course - Lab Results Lab Results: Micro Results 04/11/18 22:08 Trachasp Gram Stain - Final 04/11/18 22:08 Trachasp Sputum Culture - Final Proteus Mirabilis 04/06/18 02:30 Blood Blood Culture - Final NO GROWTH AFTER 5 DAYS 04/06/18 02:30 Blood Gram Stain - Final TEST NOT PERFORMED 04/06/18 02:30 Blood Blood Culture - Final NO GROWTH AFTER 5 DAYS 04/06/18 02:30 Blood Gram Stain - Final TEST NOT PERFORMED 04/09/18 19:03 Naris MRSA Culture - Final MRSA NOT DETECTED 04/06/18 06:42 Trachasp Gram Stain - Final 04/06/18 06:42 Trachasp Sputum Culture - Final Proteus Mirabilis 04/06/18 03:35 Naris MRSA Culture (Admit) - Final MRSA NOT DETECTED 04/06/18 06:42 Sputum Gram Stain - Final Most Recent Lab Values WBC 11.5 K/uL (4.8-10.8) H 04/16/18 07:06 RBC 4.51 Mil/uL (3.80-5.20) 04/16/18 07:06 Hgb 11.5 g/dL (11.0-16.0) 04/16/18 07:06 Hct 36.3 % (34.0-47.0) 04/16/18 07:06 MCV 80.4 fL (81.0-99.0) L 04/16/18 07:06 MCH 25.4 pg (27.0-31.0) L 04/16/18 07:06 MCHC 31.6 g/dL (33.0-37.0) L 04/16/18 07:06 RDW 15.8 % (11.5-14.5) H 04/16/18 07:06 Plt Count 135 K/uL (130-400) 04/16/18 07:06 MPV 8.7 fL (7.2-11.7) 04/16/18 07:06 Neut % (Auto) 74.1 % (50.0-75.0) 04/16/18 07:06 Lymph % (Auto) 19.4 % (20.0-40.0) L 04/16/18 07:06 [place] % (Auto) 5.7 % (0.0-10.0) 04/16/18 07:06 Eos % (Auto) 0.6 % (0.0-4.0) 04/16/18 07:06 Baso % (Auto) 0.2 % (0.0-2.0) 04/16/18 07:06 Neut # (Auto) 8.6 K/uL (1.8-7.0) H 04/16/18 07:06 Lymph # (Auto) 2.2 K/uL (1.0-4.3) 04/16/18 07:06 [place] # (Auto) 0.7 K/uL (0.0-0.8) 04/16/18 07:06 Eos # (Auto) 0.1 K/uL (0.0-0.7) 04/16/18 07:06 Baso # (Auto) 0.0 K/uL (0.0-0.2) 04/16/18 07:06 Neutrophils % (Manual) 86 % (50-75) H 04/11/18 07:05 Band Neutrophils % 1 % (0-2) 04/11/18 07:05 Lymphocytes % (Manual) 7 % (20-40) L 04/11/18 07:05 Reactive Lymphs % 2 % (0-0) H 04/06/18 00:44 Monocytes % (Manual) 6 % (0-10) 04/11/18 07:05 Differential Comment 04/06/18 05:43 Toxic Granulation Present 04/07/18 06:25 Platelet Estimate Normal (NORMAL) 04/11/18 07:05 Polychromasia Slight 04/07/18 06:25 Hypochromasia (manual) Slight 04/07/18 06:25 Anisocytosis (manual) Slight 04/11/18 07:05 Microcytosis (manual) Slight 04/07/18 06:25 PT 10.9 SECONDS (9.7-12.2) 04/06/18 00:44 INR 1.0 04/06/18 00:44 APTT 35 SECONDS (21-34) H 04/06/18 00:44 Puncture Site Lr 04/11/18 10:12 pCO2 51 mm/Hg (35-45) H 04/11/18 10:12 pO2 215 mm/Hg (80-100) H 04/11/18 10:12 HCO3 31.8 mmol/L (21-28) H 04/11/18 10:12 ABG pH 7.44 (7.35-7.45) 04/11/18 10:12 ABG Total CO2 36.2 mmol/L (22-28) H 04/11/18 10:12 ABG O2 Saturation 99.6 % (95-98) H 04/11/18 10:12 ABG Base Excess 8.9 mmol/L (-2.0-3.0) H 04/11/18 10:12 ABG Hemoglobin 12.6 g/dL (11.7-17.4) 04/11/18 10:12 ABG Carboxyhemoglobin 1.7 % (0.5-1.5) H 04/11/18 10:12 POC ABG HHb (Measured) 0.4 % (0.0-5.0) 04/11/18 10:12 ABG Methemoglobin 1.9 % (0.0-3.0) 04/11/18 10:12 Rob Test Pos 04/11/18 10:12 ABG Potassium 4.1 mmol/L (3.6-5.2) 04/06/18 00:45 A-a O2 Difference 6.0 mm/Hg 04/11/18 10:12 Respiratory Index 0 04/11/18 10:12 Hgb O2 Saturation 96.0 % (95.0-98.0) 04/11/18 10:12 Sodium 141.0 mmol/l (132-148) 04/06/18 00:45 Chloride 107.0 mmol/L (98-107) 04/06/18 00:45 Glucose 199 mg/dl (65-105) H 04/06/18 00:45 Lactate 1.0 mmol/L (0.7-2.1) 04/06/18 00:45 Liter Flow 10.0 04/11/18 10:12 Vent Mode Cpap 04/06/18 05:24 FiO2 40.0 % 04/11/18 10:12 Pressure Support 10 04/06/18 05:24 CPAP 5 04/06/18 05:24 Sodium 139 mmol/L (132-148) 04/16/18 07:06 Potassium 4.1 mmol/L (3.6-5.2) 04/16/18 07:06 Chloride 99 mmol/L (98-107) 04/16/18 07:06 Carbon Dioxide 37 mmol/L (22-30) H 04/16/18 07:06 Anion Gap 7 (10-20) L 04/16/18 07:06 BUN 24 mg/dL (7-17) H 04/16/18 07:06 Creatinine 0.9 mg/dL (0.7-1.2) 04/16/18 07:06 Est GFR ( Amer) > 60 04/16/18 07:06 Est GFR (Non-Af Amer) > 60 04/16/18 07:06 POC Glucose (mg/dL) 361 mg/dL (65-110) H 04/19/18 16:04 Random Glucose 137 mg/dL (65-105) H 04/16/18 07:06 Calcium 9.2 mg/dl (8.6-10.4) 04/16/18 07:06 Phosphorus 3.4 mg/dL (2.5-4.5) 04/06/18 05:43 Magnesium 1.9 mg/dL (1.6-2.3) 04/06/18 05:43 Total Bilirubin 0.4 mg/dL (0.2-1.3) 04/12/18 07:03 AST 12 U/L (14-36) L 04/12/18 07:03 ALT 13 U/L (9-52) 04/12/18 07:03 Alkaline Phosphatase 99 U/L (38-126) 04/12/18 07:03 Total Protein 6.8 g/dL (6.3-8.3) 04/12/18 07:03 Albumin 3.6 g/dL (3.5-5.0) 04/12/18 07:03 Globulin 3.2 gm/dL (2.2-3.9) 04/12/18 07:03 Albumin/Globulin Ratio 1.1 (1.0-2.1) 04/12/18 07:03 Procalcitonin < 0.05 NG/ML (0.19-0.49) L 04/16/18 07:06 Arterial Blood Potassium 4.1 mmol/L (3.6-5.2) 04/06/18 00:45 Discharge Exam - Head Exam Head Exam: NORMAL INSPECTION Discharge Plan - Follow Up Plan Condition: CRITICAL Disposition: HOME/ ROUTINE Instructions: Pneumonia in Adults, Exacerbation of COPD (DC), How to Care for a Tracheostomy Additional Instructions: FOLLOW UP WITH DR KHAN IN HIS OFFICE ------CALL FOR APPOINTMENT FOLLOW UP WITH DR ROSADO IN HIS OFFICE NEXT WEEK ------CALL FOR APPOINTMENT ADDRESS YOUR TRACH AT YOUR VISIT CONTINUE HOME MEDICATION ACTIVITY TOLERATED TRACH CARE INSTRUCTED CALL DR KHAN OR GO TO THE EMERGENCY ROOM IF SYMPTOM RETURN OR WORSENING Referrals: Rdoo Rosado MD [Staff Provider] - Hardy Dietz MD [Staff Provider] - Wayne Celis MD [Staff Provider] - Ad Khan MD [Staff Provider] -
[2018-04-19] MEDS: (Lantus) Insulin Glargine, Recombinant SC SCH (22:19)
[2018-04-20] MEDS: Meropenem 1 GM in Sodium Chloride 0.9% 100 ML IVPB SCH (00:59)
--- NOTE | 2018-04-20 05:32 | DS ---
DISCHARGE DIAGNOSES: 1. Tracheobronchitis due to multidrug-resistant Proteus mirabilis. 2. Bronchial asthma exacerbation. 3. Diabetes. 4. Hypertension. HISTORY OF PRESENT ILLNESS: This is a 62-year-old female, well known to me with history of tracheostomy for long time, hypertension, hyperlipidemia, diabetes, and bronchial asthma. She has anxiety and depression. She is compliant with her diet, medication, and followup. She has home device for suctioning her tracheostomy, oxygen nebulizer, and the patient has recurrent hospitalizations because she keeps getting cough, congestion, and shortness of breath. She was recently treated, stabilized, and discharged for pneumonia. She was back. She was admitted to the floor. Sputum culture grew Proteus mirabilis, treated with intravenous antibiotics, cleared. The patient is stabilized on discharge. CONDITION UPON DISCHARGE: Stable . I suggested her frequent suctioning, nebulizer treatment, blood sugar control, and mucolytics. Ad Khan MD
--- NOTE | 2018-04-21 22:05 | DS ---
HISTORY OF PRESENT ILLNESS: The patient did not leave yesterday. The patient is for discharge today. The patient is afebrile, less shortness of breath, less cough, less wheezing. Her blood sugar this morning was 176. PHYSICAL EXAMINATION: LUNGS: Decreased air entry, positive rhonchi. CARDIOVASCULAR SYSTEM: S1, S2. Regular. ABDOMEN: Soft. PLAN: Discharge the patient. Monitor the patient. Ad Khan MD
== END 2018-04-20 00:50 | disposition home or self-care (01) | DRG 541 ==
LOC: C.ER 22:57 → C.9I 04-06 02:38 → C.5S 04-09 17:42
PROVIDERS: ADMIT Internal Medicine; ATTEND Internal Medicine
DX: J18.8 Other pneumonia, unspecified organism (principal); J96.00 Acute respiratory failure, unspecified whether with hypoxia or hypercapnia; J43.9 Emphysema, unspecified; J95.00 Unspecified tracheostomy complication; B96.4 Proteus (mirabilis) (morganii) as the cause of diseases classified elsewhere; I11.0 Hypertensive heart disease with heart failure; I50.9 Heart failure, unspecified; J45.901 Unspecified asthma with (acute) exacerbation; E11.65 Type 2 diabetes mellitus with hyperglycemia; E78.5 Hyperlipidemia, unspecified; F31.9 Bipolar disorder, unspecified; F41.9 Anxiety disorder, unspecified; J20.9 Acute bronchitis, unspecified; Z16.24 Resistance to multiple antibiotics; T38.0X5A Adverse effect of glucocorticoids and synthetic analogues, initial encounter; E66.01 Morbid (severe) obesity due to excess calories; G47.30 Sleep apnea, unspecified; R32 Unspecified urinary incontinence; Z79.4 Long term (current) use of insulin; Z93.0 Tracheostomy status; Z90.49 Acquired absence of other specified parts of digestive tract; Z87.01 Personal history of pneumonia (recurrent)

== ENCOUNTER 2018-04-29 14:00 | Inpatient (IN) | payer OTHER ==
[2018-04-29 14:00] VITALS: BMI 47.0
[2018-04-29 15:39] LABS: BASO # 0.1 K/uL (0.0-0.2); BASO % 0.7 % (0.0-2.0); EOS # 0.1 K/uL (0.0-0.7); EOS % 0.6 % (0.0-4.0); HEMOGLOBIN 11.6 g/dL (11.0-16.0); LYMPH # 2.4 K/uL (1.0-4.3); LYMPH % 20.6 % (20.0-40.0); MEAN CELL VOLUME 79.3 fL (81.0-99.0); MEAN CORPUSCULAR HEMOGLOBIN 25.6 pg (27.0-31.0); MEAN CORPUSCULAR HGB CONC 32.2 g/dL (33.0-37.0); MEAN PLATELET VOLUME 8.4 fL (7.2-11.7); MONO % 8.2 % (0.0-10.0); NEUT # 8.1 K/uL (1.8-7.0); NEUT % 69.9 % (50.0-75.0); NRBC % 0.1 % (0.0-2.0); RBC 4.52 Mil/uL (3.80-5.20); RED CELL DISTRIBUTION WIDTH 16.2 % (11.5-14.5); WHITE BLOOD COUNT 11.6 K/uL (4.8-10.8)
[2018-04-29 15:50] LABS: ALB/GLOB RATIO 1.2 (1.0-2.1); ALBUMIN 4.3 g/dL (3.5-5.0); ALT/SGPT 8 U/L (9-52); AST/SGOT 17 U/L (14-36); BLOOD UREA NITROGEN 18 mg/dL (7-17); CALCIUM 9.2 mg/dl (8.6-10.4); GFR NON-AFRICAN AMERICAN > 60
[2018-04-29 15:58] LABS: B-TYPE NATRIURETIC PEPTIDE 252 pg/mL (0-900)
--- NOTE | 2018-04-29 16:17 | RAD ---
Date of service: 04/29/2018 HISTORY: Pneumonia COMPARISON: 04/11/2018. FINDINGS: LUNGS: There are low lung volumes. There is airspace disease in the left lower lobe. There is mild pulmonary venous congestion. PLEURA: No pleural effusions or pneumothorax. CARDIOVASCULAR: Persistent cardiomegaly. No aortic atherosclerotic calcifications present. OSSEOUS STRUCTURES: Within normal limits for the patient's age. VISUALIZED UPPER ABDOMEN: Normal. OTHER FINDINGS: None. IMPRESSION: Findings are concerning for developing left lower lobe pneumonia. Follow-up after medical management is recommended to ensure complete resolution.
--- NOTE | 2018-04-29 16:41 | RAD ---
Date of service: 04/29/2018 PROCEDURE: CHEST RADIOGRAPH, 1 VIEW HISTORY: sob COMPARISON: 04/29/2018. FINDINGS: LUNGS: The lungs are well inflated and clear. There is interval improved aeration in the lungs with mild haziness in the left lower lobe. PLEURA: No pneumothorax or pleural effusion. CARDIOVASCULAR: Persistent mild cardiomegaly. No aortic atherosclerotic calcifications present. OSSEOUS STRUCTURES: Within normal limits for the patient's age. VISUALIZED UPPER ABDOMEN: Normal. OTHER FINDINGS: None. IMPRESSION: Interval improved aeration in the lungs with residual mild haziness in the left lower lobe which may represent atelectasis. Superimposed pneumonia cannot be excluded. Follow-up is advised
[2018-04-29] MEDS ORDERED: Moxifloxacin IV 400mg/250ml NS 400 MG/250 ML BAG IVPB ONE ×2 (17:13→17:44)
[2018-04-29] MEDS ORDERED: Albuterol-Ipratrop 3 mg / 0.5 (3 ml) UD INH STA (17:18)
--- NOTE | 2018-04-29 17:44 | C.PDOC ---
History Of Present Illness 62 year old, whose past medical history includes COPD and multiple intubations s/p tracheostomy, is brought to the ED by ambulance for evaluation of shortness of breath. Patient indicates her tracheostomy tube has been clogged with mucus, and has been having a hard time speaking and getting the mucus out. Additional history limited secondary to patient being a poor historian. Time Seen by Provider: 04/29/18 14:35 Chief Complaint (Nursing): Shortness Of Breath History Per: Patient History/Exam Limitations: other (poor historian ) Current Symptoms Are (Timing): Still Present Current Respiratory Medications: See Home Med List Additional History Per: Patient Past Medical History Reviewed: Historical Data, Nursing Documentation, Vital Signs Vital Signs: Last Vital Signs Temp 98.2 F 04/29/18 14:07 Pulse 97 H 04/29/18 16:08 Resp 18 04/29/18 16:08 BP 151/73 H 04/29/18 16:08 Pulse Ox 97 04/29/18 16:08 - Medical History PMH: Anxiety, Asthma, Bipolar Disorder, Bronchitis, Cardia Arrhythmia, CHF, COPD, Depression, Emphysema, Gall Bladder Disease, HTN, Pneumonia, Seizures, Sleep Apnea Denies: Arthritis, Deep Vein Thrombosis, HIV, Hypercholesterolemia, Hypothyroidism, Chronic Kidney Disease, Rheumatoid Arthritis, Sexually Transmitted Disease Surgical History: Appendectomy, Cholecystectomy Denies: Pacemaker - [facility] Procedures ASSISTANCE WITH RESPIRATORY VENTILATION, <24 HRS, CPAP (03/14/16) CENTRAL VENOUS CATHETER PLACEMENT WITH GUIDANCE (10/24/14) CHANGE TRACHEOSTOMY DEVICE IN TRACHEA, EXTERNAL APPROACH (04/06/18) CONTINUOUS INVASIVE MECHANICAL VENTILATION <96 CONSEC HRS (03/07/14) DRAINAGE OF LUNG LINGULA, ENDO, DIAGN (11/30/17) ENTERAL INFUSION OF CONCENTRATED NUT. SUBSTANCES (09/17/12) INSERT ENDOTRACHEAL TUBE (09/17/12) INSERTION OF ENDOTRACHEAL AIRWAY INTO TRACHEA, VIA OPENING (06/12/17) INSERTION OF INFUSION DEV INTO SUP VENA CAVA, PERC APPROACH (11/13/17) INSERTION OF INFUSION DEVICE INTO UPPER VEIN, PERC APPROACH (10/04/17) INSPECTION OF LARYNX, ENDO (03/20/18) INTRODUCE OF OTH THERAP SUBST INTO RESP TRACT, VIA OPENING (05/03/15) INTRODUCTION OF NUTRITIONAL INTO UP GI, VIA OPENING (06/12/17) NEBULIZER THERAPY (09/17/12) REMOVAL OF TRACHEOSTOMY DEVICE FROM TRACHEA, SUBASSEMBLY SUPERVISOR APPROACH (06/12/17) RESPIRATORY VENTILATION, 24-96 CONSECUTIVE HOURS (11/13/17) RESPIRATORY VENTILATION, GREATER THAN 96 CONSECUTIVE HOURS (02/27/17) RESPIRATORY VENTILATION, LESS THAN 24 CONSECUTIVE HOURS (04/06/18) Family History: States: Unknown Family Hx - Social History Hx Tobacco Use: No Hx Alcohol Use: No Hx Substance Use: No - Immunization History Hx Tetanus Toxoid Vaccination: No Hx Influenza Vaccination: No Hx Pneumococcal Vaccination: No Review Of Systems Constitutional: Negative for: Fever, Chills, Weakness Eyes: Negative for: Redness, Other (scleral icterus ) ENT: Negative for: Mouth Swelling Cardiovascular: Negative for: Chest Pain Respiratory: Positive for: Shortness of Breath, Other (tracheostomy tube clogged with mucus ). Negative for: Cough Gastrointestinal: Negative for: Nausea, Vomiting, Diarrhea Genitourinary: Negative for: Dysuria, Hematuria Neurological: Negative for: Weakness, Numbness, Dizziness Physical Exam - Physical Exam Appears: Non-toxic, No Acute Distress, Other (comfortable, sleeping ) Skin: Normal Color, Warm, No Rash, Other (afebrile ) Head: Atraumatic, Normacephalic Eye(s): bilateral: Normal Inspection (no scleral icterus ), PERRL, EOMI Ear(s): Bilateral: Normal Nose: Normal Oral Mucosa: Moist Throat: Other (tracheostomy with copious thick sputum present) Neck: Normal ROM, Supple Chest: Symmetrical Cardiovascular: Rhythm Regular, No Murmur Respiratory: Rhonchi (diffuse), Other (no signs of respiratory distress ) Gastrointestinal/Abdominal: Soft, No Distention Extremity: Normal ROM, No Pedal Edema, Capillary Refill (less than 2 seconds ), Other (non-pitting edema to bilateral lower extremities ) Extremity: Bilateral: Atraumatic Pulses: Left Radial: Normal, Right Radial: Normal, Left Dorsalis Pedis: Normal, Right Dorsalis Pedis: Normal Neurological/Psych: Other (alert, oriented ) ED Course And Treatment - Laboratory Results Result Diagrams: 04/29/18 15:34 04/29/18 15:34 Lab Results: NT-Pro-B Natriuret Pep 252 pg/mL (0-900) 04/29/18 15:34 Total Bilirubin 0.6 mg/dL (0.2-1.3) 04/29/18 15:34 AST 17 U/L (14-36) 04/29/18 15:34 ALT 8 U/L (9-52) L D 04/29/18 15:34 Alkaline Phosphatase 127 U/L (38-126) H D 04/29/18 15:34 Total Protein 7.9 g/dL (6.3-8.3) 04/29/18 15:34 Albumin 4.3 g/dL (3.5-5.0) 04/29/18 15:34 Globulin 3.7 gm/dL (2.2-3.9) 04/29/18 15:34 Albumin/Globulin Ratio 1.2 (1.0-2.1) 04/29/18 15:34 O2 Sat by Pulse Oximetry: 97 Pulse Ox Interpretation: Normal - Other Rad CXR X-Ray: Viewed By Me, Read By Radiologist Interpretation: Date of service: 04/29/2018. HISTORY: Pneumonia. COMPARISON: 04/11/2018. FINDINGS: LUNGS: There are low lung volumes. There is airspace disease in the left lower lobe. There is mild pulmonary venous congestion. PLEURA: No pleural effusions or pneumothorax. CARDIOVASCULAR: Persistent cardiomegaly. No aortic atherosclerotic calcifications present. OSSEOUS STRUCTURES: Within normal limits for the patient's age. VISUALIZED UPPER ABDOMEN: Normal. OTHER FINDINGS: None. IMPRESSION: Findings are concerning for developing left lower lobe pneumonia. Follow-up after medical management is recommended to ensure complete resolution. Medical Decision Making Medical Decision Making: Progress: Bloodwork, urinalysis, CXR, and EKG ordered and reviewed. Moxifloxacin IVPB, Vancomycin CT and Albuterol INH given. CXR results show early left-sided pneumonia. Review of prior records show patient was evaluated in this ED less than one month ago, symptoms may be due to community acquired pneumonia. Case discussed with Dr. Ad Khan, who accepts the patient for admission. Disposition - Disposition Disposition: HOSPITALIZED Disposition Time: 23:00 Condition: STABLE - Clinical Impression Clinical Impression: Pneumonia - PA / [employer] / Resident Statement MD/DO has reviewed & agrees with the documentation as recorded. - Scribe Statement The provider has reviewed the documentation as recorded by the Scribe (Regla Garcia) All medical record entries made by the Scribe were at my direction and personally dictated by me. I have reviewed the chart and agree that the record accurately reflects my personal performance of the history, physical exam, medical decision making, and the department course for this patient. I have also personally directed, reviewed, and agree with the discharge instructions and disposition. Decision To Admit - Pt Status Changed To: Hospital Disposition Of: Inpatient - Admit Certification Admit to Inpatient:: After my assessment, the patient will require hospitalization for at least two midnights. This is because of the severity of symptoms shown, intensity of services needed, and/or the medical risk in this patient being treated as an outpatient. - InPatient: Physician Admission Certification: I certify that this patient requires 2 or more midnights of care for the following reason:: given her comorbidities, this patient will require more than 2 nights of antibiotic treatment - . Bed Request Type: Regular Admitting Physician: Ad Khan Patient Diagnosis: Pneumonia
[2018-04-29] MEDS ORDERED: guaiFENesin 100 mg/5 ml Syrup UD PO SCH (17:45)
[2018-04-29] MEDS: Moxifloxacin IV 400mg/250ml NS 400 MG/250 ML BAG IVPB SCH (17:47)
[2018-04-29] MEDS ORDERED: Oxycodone/Acetaminophen 5/325 mg Tab ONE (18:05)
[2018-04-29] MEDS: Oxycodone/Acetaminophen 5/325 mg Tab PO PRN (18:12)
[2018-04-29] MEDS: guaiFENesin 600 mg ER Tab PO SCH (18:27)
[2018-04-29] MEDS ORDERED: Vancomycin 1 GM 1 GM/250 ML BAG IVPB ONE (19:17)
[2018-04-29] MEDS: (Novolin R) Insulin Human Regular 100 units/ml vial SC SCH (21:04)
[2018-04-29] MEDS ORDERED: Albuterol-Ipratrop 3 mg / 0.5 (3 ml) UD ONE (21:13)
[2018-04-29] MEDS ORDERED: (Lantus) Insulin Glargine, Recombinant SC ONE (21:14)
[2018-04-29] MEDS: (Lantus) Insulin Glargine, Recombinant SC SCH (21:27)
[2018-04-29] MEDS: QUEtiapine 200 mg XR Tab PO SCH (21:28)
[2018-04-29] MEDS: Albuterol-Ipratrop 3 mg / 0.5 (3 ml) UD INH SCH (21:31)
[2018-04-29 22:05] LABS: SQUAMOUS EPITHIAL < 1 /hpf (0-5); URINE BACTERIA OCC (<OCC); URINE BILIRUBIN NEGATIVE (NEGATIVE); URINE BLOOD NEGATIVE (NEGATIVE); URINE CLARITY Hazy (Clear); URINE COLOR Yellow (YELLOW); URINE GLUCOSE (UA) NORMAL (Normal); URINE LEUKOCYTE ESTERASE TRACE Leu/uL (Negative); URINE PROTEIN NEGATIVE (NEGATIVE); URINE UROBILINOGEN NORMAL mg/dL (0.2-1.0)
[2018-04-30] MEDS: Albuterol-Ipratrop 3 mg / 0.5 (3 ml) UD INH SCH ×6 (00:43→19:45)
[2018-04-30] MEDS: Oxycodone/Acetaminophen 5/325 mg Tab PO PRN ×3 (07:07→17:37)
--- NOTE | 2018-04-30 07:39 | CP.PCM.HP ---
Present on Admission - Present on Admission Any Indicators Present on Admission: Yes History of Uncontrolled Diabetes: Yes Past Patient History - Infectious Disease Hx of Infectious Diseases: None - Tetanus Immunizations Tetanus Immunization: Unknown - Past Medical History & Family History Past Medical History?: Yes - Past Social History Smoking Status: Unknown If Ever Smoked - CARDIAC Hx Cardia Arrhythmia: Yes Hx Congestive Heart Failure: Yes Hx Hypercholesterolemia: No Hx Hypertension: Yes Hx Pacemaker: No - PULMONARY Hx Asthma: Yes Hx Bronchitis: Yes Hx Chronic Obstructive Pulmonary Disease (COPD): Yes Hx Emphysema: Yes Hx Pneumonia: Yes Hx Sleep Apnea: Yes - NEUROLOGICAL Hx Seizures: Yes - HEENT Hx HEENT Problems: Yes Hx Cataracts: Yes - RENAL Hx Chronic Kidney Disease: No - ENDOCRINE/METABOLIC Hx Hypothyroidism: No - HEMATOLOGICAL/ONCOLOGICAL Hx Human Immunodeficiency Virus (HIV): No - INTEGUMENTARY Hx Dermatological Problems: No - MUSCULOSKELETAL/RHEUMATOLOGICAL Hx Arthritis: No Hx Falls: No Hx Rheumatoid Arthritis: No - GASTROINTESTINAL Hx Gall Bladder Disease: Yes - GENITOURINARY/GYNECOLOGICAL Hx Sexually Transmitted Disorders: No - PSYCHIATRIC Hx Anxiety: Yes Hx Bipolar Disorder: Yes Hx Depression: Yes Hx Substance Use: No - SURGICAL HISTORY Hx Appendectomy: Yes Hx Cholecystectomy: Yes - ANESTHESIA Hx Anesthesia: Yes Hx Anesthesia Reactions: No Hx Malignant Hyperthermia: No Meds Allergies/Adverse Reactions: Allergies Allergy/AdvReac Type Severity Reaction Status Date / Time aspirin Allergy ANAPHYLAXIS Verified 04/05/18 23:11 ceftriaxone sodium Allergy ANAPHYLAXIS Verified 04/05/18 23:11 [From Rocephin] ibuprofen [From Motrin] Allergy ANAPHYLAXIS Verified 04/05/18 23:11 iodine Allergy ANAPHYLAXIS Verified 04/05/18 23:11 raspberry Allergy ANAPHYLAXIS Verified 04/05/18 23:11 Results - Vital Signs Recent Vital Signs: Last Vital Signs Temp 97.9 F 04/30/18 00:30 Pulse 81 04/30/18 00:30 Resp 20 04/30/18 00:30 BP 108/61 04/30/18 00:30 Pulse Ox 98 04/30/18 00:30 - Labs Result Diagrams: 04/29/18 15:34 04/29/18 15:34 Labs: Laboratory Results - last 24 hr 04/29/18 04/29/18 04/29/18 15:34 15:34 20:57 WBC 11.6 H RBC 4.52 Hgb 11.6 Hct 35.9 MCV 79.3 L MCH 25.6 L MCHC 32.2 L RDW 16.2 H Plt Count 153 MPV 8.4 Neut % (Auto) 69.9 Lymph % (Auto) 20.6 [place] % (Auto) 8.2 Eos % (Auto) 0.6 Baso % (Auto) 0.7 Neut # (Auto) 8.1 H Lymph # (Auto) 2.4 [place] # (Auto) 1.0 H Eos # (Auto) 0.1 Baso # (Auto) 0.1 Sodium 139 Potassium 3.8 Chloride 104 Carbon Dioxide 28 Anion Gap 10 BUN 18 H Creatinine 0.9 Est GFR ( Amer) > 60 Est GFR (Non-Af Amer) > 60 POC Glucose (mg/dL) 84 Random Glucose 136 H Calcium 9.2 Total Bilirubin 0.6 AST 17 ALT 8 L D Alkaline Phosphatase 127 H D NT-Pro-B Natriuret Pep 252 Total Protein 7.9 Albumin 4.3 Globulin 3.7 Albumin/Globulin Ratio 1.2 Urine Color Urine Clarity Urine pH Ur Specific [place] Urine Protein Urine Glucose (UA) Urine Ketones Urine Blood Urine Nitrate Urine Bilirubin Urine Urobilinogen Ur Leukocyte Esterase Urine WBC (Auto) Urine RBC (Auto) Ur Squamous Epith Cells Urine Bacteria 04/29/18 04/30/18 21:44 06:33 WBC RBC Hgb Hct MCV MCH MCHC RDW Plt Count MPV Neut % (Auto) Lymph % (Auto) [place] % (Auto) Eos % (Auto) Baso % (Auto) Neut # (Auto) Lymph # (Auto) [place] # (Auto) Eos # (Auto) Baso # (Auto) Sodium Potassium Chloride Carbon Dioxide Anion Gap BUN Creatinine Est GFR ( Amer) Est GFR (Non-Af Amer) POC Glucose (mg/dL) 86 Random Glucose Calcium Total Bilirubin AST ALT Alkaline Phosphatase NT-Pro-B Natriuret Pep Total Protein Albumin Globulin Albumin/Globulin Ratio Urine Color Yellow Urine Clarity Hazy Urine pH 5.0 Ur Specific [place] 1.021 Urine Protein Negative Urine Glucose (UA) Normal Urine Ketones Negative Urine Blood Negative Urine Nitrate Negative Urine Bilirubin Negative Urine Urobilinogen Normal Ur Leukocyte Esterase Trace Urine WBC (Auto) 2 Urine RBC (Auto) 1 Ur Squamous Epith Cells < 1 Urine Bacteria Occ H
[2018-04-30] MEDS: (Novolin R) Insulin Human Regular 100 units/ml vial SC SCH ×4 (07:58→21:39)
[2018-04-30] MEDS: guaiFENesin 600 mg ER Tab PO SCH ×3 (10:19→17:37)
[2018-04-30] MEDS: Enoxaparin 40 mg Syringe SC SCH (10:20)
[2018-04-30] MEDS: QUEtiapine 200 mg XR Tab PO SCH ×2 (10:21→21:41)
--- NOTE | 2018-04-30 15:34 | CP.PCM.CON ---
History of Present Illness - History of Present Illness History of Present Illness: Patient is a 62 year old femal with h/o COPD, tracheostomy, CHF, HTN, DM, Sleep apnea syndrome, siezure disorder, anxiety, depression pression presented to the ED with c/o SOB and mucous clogging her tube. She was recently admitted and experieneced this same issue on admission. Patient seen and examined at bedside, afebrile. She is extremly anxious about her SOB and is having a difficult speaking Thick secretions in tube. Denies fever, chills, nausea, vomting PMH:COPD, tracheostomy, CHF, HTN, DM, Sleep apnea syndrome, siezure disorder, anxiety, depression Surgical:Appedectomy. Cholecystectomy. Social:Denies Med: As per EMR Allergies: ASA, ceftriaxone, ibuprofen, iodine, raspberry Physical Exam Gen: AAOx3, anxious Cardio:RRR, no murmur Pulm: ronchi bilaterally GI:soft, nontender A&P: COPD -continue Duoneb -ContinueSsoluMedrol -Continue mucinex -Continue Singulair -Chest xray 3/4: Interval improved aeration in the lungs with residual mild haziness in the left lower lobe which may represent atelectasis. Superimposed pneumonia cannot be excluded Tracheostomy/tracheobronchitis - increase deep suctioning -gram stain 3: rare polymorph WBCs, few yeast, few gram positive cocci, moderate gram positive bacilli -Follow up sputum culture -continue abx -increase routine care -ativan for anxiety -consider medication for pain control Past Patient History - Infectious Disease Hx of Infectious Diseases: None - Tetanus Immunizations Tetanus Immunization: Unknown - Past Medical History & Family History Past Medical History?: Yes - Past Social History Smoking Status: Unknown If Ever Smoked - CARDIAC Hx Cardia Arrhythmia: Yes Hx Congestive Heart Failure: Yes Hx Hypercholesterolemia: No Hx Hypertension: Yes Hx Pacemaker: No - PULMONARY Hx Asthma: Yes Hx Bronchitis: Yes Hx Chronic Obstructive Pulmonary Disease (COPD): Yes Hx Emphysema: Yes Hx Pneumonia: Yes Hx Sleep Apnea: Yes - NEUROLOGICAL Hx Seizures: Yes - HEENT Hx HEENT Problems: Yes Hx Cataracts: Yes - RENAL Hx Chronic Kidney Disease: No - ENDOCRINE/METABOLIC Hx Hypothyroidism: No - HEMATOLOGICAL/ONCOLOGICAL Hx Human Immunodeficiency Virus (HIV): No - INTEGUMENTARY Hx Dermatological Problems: No - MUSCULOSKELETAL/RHEUMATOLOGICAL Hx Arthritis: No Hx Falls: No Hx Rheumatoid Arthritis: No - GASTROINTESTINAL Hx Gall Bladder Disease: Yes - GENITOURINARY/GYNECOLOGICAL Hx Sexually Transmitted Disorders: No - PSYCHIATRIC Hx Anxiety: Yes Hx Bipolar Disorder: Yes Hx Depression: Yes Hx Substance Use: No - SURGICAL HISTORY Hx Appendectomy: Yes Hx Cholecystectomy: Yes - ANESTHESIA Hx Anesthesia: Yes Hx Anesthesia Reactions: No Hx Malignant Hyperthermia: No Meds Allergies/Adverse Reactions: Allergies Allergy/AdvReac Type Severity Reaction Status Date / Time aspirin Allergy ANAPHYLAXIS Verified 04/05/18 23:11 ceftriaxone sodium Allergy ANAPHYLAXIS Verified 04/05/18 23:11 [From Rocephin] ibuprofen [From Motrin] Allergy ANAPHYLAXIS Verified 04/05/18 23:11 iodine Allergy ANAPHYLAXIS Verified 04/05/18 23:11 raspberry Allergy ANAPHYLAXIS Verified 04/05/18 23:11 - Medications Medications: Current Medications Acetaminophen (Tylenol 325mg Tab) 650 mg PO Q6H PRN PRN Reason: Pain, Mild (1-3) Last Admin: 04/29/18 21:27 Dose: 650 mg Albuterol/Ipratropium (Duoneb 3 Mg/0.5 Mg (3 Ml) Ud) 3 ml INH RQ4 [facility] Last Admin: 04/30/18 11:45 Dose: 3 ml Enoxaparin Sodium (Lovenox) 40 mg SC DAILY [facility] Last Admin: 04/30/18 10:20 Dose: 40 mg Gabapentin (Neurontin) 800 mg PO TID [facility] Last Admin: 04/30/18 13:32 Dose: 800 mg Guaifenesin (Mucinex La) 600 mg PO TID [facility] Last Admin: 04/30/18 13:32 Dose: 600 mg Moxifloxacin HCl (Avelox Iv 400mg/250ml Ns) 400 mg in 250 mls @ 167 mls/hr IVPB Q24H [facility]; Protocol Last Admin: 04/29/18 17:47 Dose: Not Given Insulin Glargine (Lantus) 17 unit SC [facility] Last Admin: 04/29/18 21:27 Dose: 17 unit Insulin Human Regular (Novolin R) 0 unit SC [facility]; Protocol Last Admin: 04/30/18 11:55 Dose: Not Given Lorazepam (Ativan) 2 mg PO Q12H PRN PRN Reason: Anxiety Montelukast Sodium (Singulair) 10 mg PO [facility] Last Admin: 04/29/18 21:28 Dose: 10 mg Oxycodone/Acetaminophen (Percocet 5/325 Mg Tab) 1 tab PO Q4H PRN PRN Reason: Pain, severe (8-10) Stop: 05/02/18 17:40 Last Admin: 04/30/18 13:34 Dose: 1 tab Prednisone (Prednisone Tab) 20 mg PO DAILY [facility] Last Admin: 04/30/18 11:56 Dose: 20 mg Quetiapine Fumarate (Seroquel Xr) 400 mg PO Q12 [facility] Last Admin: 04/30/18 10:21 Dose: 400 mg Sertraline HCl (Zoloft) 100 mg PO BID [facility] Last Admin: 04/30/18 10:19 Dose: 100 mg Trazodone HCl (Desyrel) 150 mg PO [facility] Last Admin: 04/29/18 21:27 Dose: 150 mg Results - Vital Signs Recent Vital Signs: Last Vital Signs Temp 98.4 F 04/30/18 15:00 Pulse 85 04/30/18 15:00 Resp 20 04/30/18 15:00 BP 124/78 04/30/18 15:00 Pulse Ox 95 04/30/18 15:00 - Labs Result Diagrams: 04/29/18 15:34 04/29/18 15:34 Labs: Laboratory Results - last 24 hr 04/29/18 04/29/18 04/29/18 15:34 15:34 20:57 WBC 11.6 H RBC 4.52 Hgb 11.6 Hct 35.9 MCV 79.3 L MCH 25.6 L MCHC 32.2 L RDW 16.2 H Plt Count 153 MPV 8.4 Neut % (Auto) 69.9 Lymph % (Auto) 20.6 [place] % (Auto) 8.2 Eos % (Auto) 0.6 Baso % (Auto) 0.7 Neut # (Auto) 8.1 H Lymph # (Auto) 2.4 [place] # (Auto) 1.0 H Eos # (Auto) 0.1 Baso # (Auto) 0.1 Sodium 139 Potassium 3.8 Chloride 104 Carbon Dioxide 28 Anion Gap 10 BUN 18 H Creatinine 0.9 Est GFR ( Amer) > 60 Est GFR (Non-Af Amer) > 60 POC Glucose (mg/dL) 84 Random Glucose 136 H Calcium 9.2 Total Bilirubin 0.6 AST 17 ALT 8 L D Alkaline Phosphatase 127 H D NT-Pro-B Natriuret Pep 252 Total Protein 7.9 Albumin 4.3 Globulin 3.7 Albumin/Globulin Ratio 1.2 Urine Color Urine Clarity Urine pH Ur Specific [place] Urine Protein Urine Glucose (UA) Urine Ketones Urine Blood Urine Nitrate Urine Bilirubin Urine Urobilinogen Ur Leukocyte Esterase Urine WBC (Auto) Urine RBC (Auto) Ur Squamous Epith Cells Urine Bacteria 04/29/18 04/30/18 04/30/18 21:44 06:33 11:52 WBC RBC Hgb Hct MCV MCH MCHC RDW Plt Count MPV Neut % (Auto) Lymph % (Auto) [place] % (Auto) Eos % (Auto) Baso % (Auto) Neut # (Auto) Lymph # (Auto) [place] # (Auto) Eos # (Auto) Baso # (Auto) Sodium Potassium Chloride Carbon Dioxide Anion Gap BUN Creatinine Est GFR ( Amer) Est GFR (Non-Af Amer) POC Glucose (mg/dL) 86 124 H Random Glucose Calcium Total Bilirubin AST ALT Alkaline Phosphatase NT-Pro-B Natriuret Pep Total Protein Albumin Globulin Albumin/Globulin Ratio Urine Color Yellow Urine Clarity Hazy Urine pH 5.0 Ur Specific [place] 1.021 Urine Protein Negative Urine Glucose (UA) Normal Urine Ketones Negative Urine Blood Negative Urine Nitrate Negative Urine Bilirubin Negative Urine Urobilinogen Normal Ur Leukocyte Esterase Trace Urine WBC (Auto) 2 Urine RBC (Auto) 1 Ur Squamous Epith Cells < 1 Urine Bacteria Occ H
--- NOTE | 2018-04-30 17:22 | CARD ---
APPROVED REPORT Date of service: 04/29/2018 EKG Measurement Heart [id number] <Conclusion> Normal sinus rhythm Minimal voltage criteria for LVH, may be normal variant Borderline ECG
[2018-04-30] MEDS: Moxifloxacin IV 400mg/250ml NS 400 MG/250 ML BAG IVPB SCH (17:37)
--- NOTE | 2018-04-30 19:26 | HP ---
CHIEF COMPLAINT: Shortness of breath. HISTORY OF PRESENT ILLNESS: This is a 62-year-old female, well known to me with history of bronchial asthma, history of tracheostomy, she is status post multiple hospitalizations, multiple intubations who did have several attempts in the past to reverse her tracheostomy, but she needs a tracheostomy as the patient was recently discharged from the hospital with full treatment for the pneumonia. The patient is back. Her chief complaint is hoarseness of voice. She cannot speak the longer that she is coughing. She is congested. She is wheezing. She has some chills, rigors, but she denies any fever that has been quantified. When treating in the ER, her tracheostomy tube has been clogged with mucus and she denies any abdominal pain. She denies any nausea or vomiting. She is anxious. She is depressed. The patient denies any history of dysuria, hematuria, or pyuria. She denies any sneezing, itchy eyes, itchy nose. There is no history of joint pain, headache, or back pain. The patient has throat pain. There is no history of skin rash. PAST MEDICAL HISTORY: Bronchial asthma, tracheostomy, morbid obesity, hypertension, type 2 diabetes, major depression, diabetes. SOCIAL HISTORY: She is nonsmoker. non-EtOH user. CURRENT MEDICATIONS AT HOME: She is on trazodone and prednisone taper, Percocet, Robitussin, Zoloft, Seroquel, Protonix, Singular, Ativan, Lantus, guaifenesin, gabapentin, Tessalon, DuoNeb, and Tylenol. PHYSICAL EXAMINATION: GENERAL: An elderly female, in mild distress. VITAL SIGNS: Blood pressure is 123/81, pulse 85, respiratory rate 19, temperature 98.1. SKIN: No bruises. No purpura. No rashes. HEENT: Atraumatic, normocephalic. Negative pallor. Negative jaundice. Extraocular movements are intact. NECK: Supple. No JVD. No lymph node. No thyromegaly. CHEST WALL: Bilateral symmetrical expansion. The patient has tracheostomy with thick mucus plugs. LUNGS: Bilateral decreased air entry. Positive rhonchi. CARDIOPULMONARY: S1, S2 regular. No heave. No thrill. ABDOMEN: Soft, nontender. Bowel sounds are positive. RECTAL: No masses. No bleeding. EXTREMITIES: No clubbing or cyanosis. There is trace edema. CENTRAL NERVOUS SYSTEM: The patient is awake, alert, and oriented x3. Cranial nerves II through XII are normal. Power 5/5 x4. Plantars are downgoing. ASSESSMENT: 1. Acute laryngitis, rule out left lower lobe pneumonia, most likely due to tracheostomy. 2. Type 2 diabetes. 3. Hypertension. 4. Bronchial asthma. PLAN: Detailed orders are written. Seen and examined. Ad Khan MD
[2018-04-30] MEDS: (Lantus) Insulin Glargine, Recombinant SC SCH (21:39)
--- NOTE | 2018-04-30 22:29 | CP.PCM.PN ---
Subjective - Date & Time of Evaluation Date of Evaluation: 04/30/18 Time of Evaluation: 08:40 - Subjective Subjective: dictated Objective - Vital Signs/Intake and Output Vital Signs (last 24 hours): Temp Pulse Resp BP Pulse Ox 98.4 F 85 20 124/78 95 04/30/18 15:00 04/30/18 15:00 04/30/18 15:00 04/30/18 15:00 04/30/18 15:00 Intake and Output: 04/30/18 05/01/18 18:59 06:59 Intake Total 300 450 Balance 300 450 - Medications Medications: Current Medications Acetaminophen (Tylenol 325mg Tab) 650 mg PO Q6H PRN PRN Reason: Pain, Mild (1-3) Last Admin: 04/29/18 21:27 Dose: 650 mg Albuterol/Ipratropium (Duoneb 3 Mg/0.5 Mg (3 Ml) Ud) 3 ml INH RQ4 [facility] Last Admin: 04/30/18 19:45 Dose: 3 ml Enoxaparin Sodium (Lovenox) 40 mg SC DAILY [facility] Last Admin: 04/30/18 10:20 Dose: 40 mg Gabapentin (Neurontin) 800 mg PO TID [facility] Last Admin: 04/30/18 17:37 Dose: 800 mg Guaifenesin (Mucinex La) 600 mg PO TID [facility] Last Admin: 04/30/18 17:37 Dose: 600 mg Moxifloxacin HCl (Avelox Iv 400mg/250ml Ns) 400 mg in 250 mls @ 167 mls/hr IVPB Q24H [facility]; Protocol Last Admin: 04/30/18 17:37 Dose: 167 mls/hr Insulin Glargine (Lantus) 17 unit SC HS [facility] Last Admin: 04/30/18 21:39 Dose: 17 unit Insulin Human Regular (Novolin R) 0 unit SC [facility]; Protocol Last Admin: 04/30/18 21:39 Dose: 3 units Lorazepam (Ativan) 2 mg PO Q12H PRN PRN Reason: Anxiety Montelukast Sodium (Singulair) 10 mg PO HS [facility] Last Admin: 04/30/18 21:41 Dose: 10 mg Morphine Sulfate (Morphine) 2 mg IVP Q4 PRN PRN Reason: Pain, severe (8-10) Last Admin: 04/30/18 21:41 Dose: 2 mg Prednisone (Prednisone Tab) 20 mg PO DAILY [facility] Last Admin: 04/30/18 11:56 Dose: 20 mg Quetiapine Fumarate (Seroquel Xr) 400 mg PO Q12 [facility] Last Admin: 04/30/18 21:41 Dose: 400 mg Sertraline HCl (Zoloft) 100 mg PO BID [facility] Last Admin: 04/30/18 17:37 Dose: 100 mg Trazodone HCl (Desyrel) 150 mg PO HS [facility] Last Admin: 04/30/18 21:40 Dose: 150 mg - Labs Labs: 04/29/18 15:34 04/29/18 15:34
[2018-05-01] MEDS: Albuterol-Ipratrop 3 mg / 0.5 (3 ml) UD INH SCH ×6 (00:13→19:47)
--- NOTE | 2018-05-01 01:20 | PN ---
DATE: 04/30/2018 SUBJECTIVE: The patient still has hoarseness of voice. No fever. Decreased WBC count. Decreased blood sugar. Positive cough. Positive wheezing. She has pain in the throat at the site of tracheostomy. PHYSICAL EXAMINATION: VITAL SIGNS: Blood pressure 124/78, pulse 85, respiratory rate 20, temperature 98.4. LUNGS: Decreased air entry, positive rhonchi. CARDIOVASCULAR SYSTEM: S1, S2. Regular. ABDOMEN: Soft. ASSESSMENT: 1. Acute laryngitis, rule out pneumonia. 2. Type 2 diabetes. 3. Bronchial asthma. 4. Hypertension. 5. Depression. PLAN: Continue antibiotics, volume depletion. Ad Khan MD
[2018-05-01] MEDS: (Novolin R) Insulin Human Regular 100 units/ml vial SC SCH ×4 (08:16→22:02)
[2018-05-01] MEDS: guaiFENesin 600 mg ER Tab PO SCH ×3 (09:44→17:21)
[2018-05-01] MEDS: Enoxaparin 40 mg Syringe SC SCH (09:44)
[2018-05-01] MEDS: QUEtiapine 200 mg XR Tab PO SCH ×2 (09:44→22:02)
--- NOTE | 2018-05-01 16:05 | CP.PCM.PN ---
Subjective - Date & Time of Evaluation Date of Evaluation: 05/01/18 Time of Evaluation: 16:05 - Subjective Subjective: Pulmonary follow up, Covering Dr Rosado The Patient was seen and examined at the bedside, Medical records reviewed, and management issues were discussed and formulated with the house staff. Events reviewed Patient is a 62 year old femal with h/o COPD, tracheostomy, CHF, HTN, DM, Sleep apnea syndrome, siezure disorder, anxiety, depression pression presented to the ED with c/o SOB and mucous clogging her tube. She was recently admitted and experieneced this same issue on admission. Patient seen and examined at bedside, afebrile. She is extremly anxious about her SOB and is having a difficult speaking Thick secretions in tube. Denies fever, chills, nausea, vomting PMH:COPD, tracheostomy, CHF, HTN, DM, Sleep apnea syndrome, siezure disorder, anxiety, depression Surgical:Appedectomy. Cholecystectomy. Social:Denies Med: As per EMR Allergies: ASA, ceftriaxone, ibuprofen, iodine, raspberry Objective - Vital Signs/Intake and Output Vital Signs (last 24 hours): Temp Pulse Resp BP Pulse Ox 98.5 F 89 20 116/73 96 05/01/18 15:00 05/01/18 15:00 05/01/18 15:00 05/01/18 15:00 05/01/18 15:00 Intake and Output: 05/01/18 05/01/18 06:59 18:59 Intake Total 450 300 Output Total 400 Balance 50 300 - Medications Medications: Current Medications Acetaminophen (Tylenol 325mg Tab) 650 mg PO Q6H PRN PRN Reason: Pain, Mild (1-3) Last Admin: 04/29/18 21:27 Dose: 650 mg Albuterol/Ipratropium (Duoneb 3 Mg/0.5 Mg (3 Ml) Ud) 3 ml INH RQ4 [facility] Last Admin: 05/01/18 11:20 Dose: 3 ml Enoxaparin Sodium (Lovenox) 40 mg SC DAILY [facility] Last Admin: 05/01/18 09:44 Dose: 40 mg Gabapentin (Neurontin) 800 mg PO TID [facility] Last Admin: 05/01/18 13:46 Dose: 800 mg Guaifenesin (Mucinex La) 600 mg PO TID [facility] Last Admin: 05/01/18 13:46 Dose: 600 mg Moxifloxacin HCl (Avelox Iv 400mg/250ml Ns) 400 mg in 250 mls @ 167 mls/hr IVPB Q24H [facility]; Protocol Last Admin: 04/30/18 17:37 Dose: 167 mls/hr Insulin Glargine (Lantus) 17 unit SC [facility] Last Admin: 04/30/18 21:39 Dose: 17 unit Insulin Human Regular (Novolin R) 0 unit SC [facility]; Protocol Last Admin: 05/01/18 12:08 Dose: 3 units Lorazepam (Ativan) 2 mg PO Q12H PRN PRN Reason: Anxiety Montelukast Sodium (Singulair) 10 mg PO [facility] Last Admin: 04/30/18 21:41 Dose: 10 mg Morphine Sulfate (Morphine) 2 mg IVP Q4 PRN PRN Reason: Pain, severe (8-10) Last Admin: 05/01/18 13:52 Dose: 2 mg Prednisone (Prednisone Tab) 20 mg PO DAILY [facility] Last Admin: 05/01/18 09:44 Dose: 20 mg Quetiapine Fumarate (Seroquel Xr) 400 mg PO Q12 [facility] Last Admin: 05/01/18 09:44 Dose: 400 mg Sertraline HCl (Zoloft) 100 mg PO BID [facility] Last Admin: 05/01/18 09:44 Dose: 100 mg Trazodone HCl (Desyrel) 150 mg PO [facility] Last Admin: 04/30/18 21:40 Dose: 150 mg - Labs Labs: 04/29/18 15:34 04/29/18 15:34 - Constitutional Appears: Well - Head Exam Head Exam: ATRAUMATIC, NORMAL INSPECTION - Eye Exam Eye Exam: EOMI, Normal appearance. absent: Conjunctival injection - ENT Exam ENT Exam: absent: Mucous Membranes Dry - Neck Exam Neck Exam: Full ROM (Tracheostomy site clean, intact), Normal Inspection. absent: Lymphadenopathy - Respiratory Exam Respiratory Exam: Decreased Breath Sounds, Clear to Ausculation Bilateral, NORMAL BREATHING PATTERN. absent: Accessory Muscle Use, Chest Wall Tenderness, Rales, Rhonchi, Wheezes - Cardiovascular Exam Cardiovascular Exam: REGULAR RHYTHM, RRR. absent: Bradycardia, Tachycardia, JVD - GI/Abdominal Exam GI & Abdominal Exam: Distended, Normal Bowel Sounds - Back Exam Back Exam: absent: CVA tenderness (L), CVA tenderness (R) - Neurological Exam Neurological Exam: Alert, Awake, Oriented x3. absent: Motor Sensory Deficit Assessment and Plan (1) COPD (chronic obstructive pulmonary disease) Status: Acute (2) Respiratory distress Status: Acute (3) Tracheostomy dependence Status: Acute (4) Tracheobronchitis Status: Acute (5) Sleep apnea syndrome Status: Chronic - Assessment and Plan (Free Text) Assessment: COPD -continue Duoneb -ContinueSsoluMedrol -Continue mucinex -Continue Singulair -Chest xray 3/4: Interval improved aeration in the lungs with residual mild haziness in the left lower lobe which may represent atelectasis. Superimposed pneumonia cannot be excluded Tracheostomy/tracheobronchitis - increase deep suctioning -gram stain 3/4: rare polymorph WBCs, few yeast, few gram positive cocci, moderate gram positive bacilli -Follow up sputum culture -continue abx -increase routine care -ativan for anxiety -consider medication for pain control
[2018-05-01] MEDS: Moxifloxacin IV 400mg/250ml NS 400 MG/250 ML BAG IVPB SCH (17:20)
--- NOTE | 2018-05-01 21:28 | CP.PCM.PN ---
Subjective - Date & Time of Evaluation Date of Evaluation: 05/01/18 Time of Evaluation: 10:20 - Subjective Subjective: dictated Objective - Vital Signs/Intake and Output Vital Signs (last 24 hours): Temp Pulse Resp BP Pulse Ox 98.5 F 89 20 116/73 96 05/01/18 15:00 05/01/18 15:00 05/01/18 15:00 05/01/18 15:00 05/01/18 15:00 Intake and Output: 05/01/18 05/02/18 18:59 06:59 Intake Total 300 Balance 300 - Medications Medications: Current Medications Acetaminophen (Tylenol 325mg Tab) 650 mg PO Q6H PRN PRN Reason: Pain, Mild (1-3) Last Admin: 04/29/18 21:27 Dose: 650 mg Albuterol/Ipratropium (Duoneb 3 Mg/0.5 Mg (3 Ml) Ud) 3 ml INH RQ4 [facility] Last Admin: 05/01/18 19:47 Dose: 3 ml Enoxaparin Sodium (Lovenox) 40 mg SC DAILY [facility] Last Admin: 05/01/18 09:44 Dose: 40 mg Gabapentin (Neurontin) 800 mg PO TID [facility] Last Admin: 05/01/18 17:21 Dose: 800 mg Guaifenesin (Mucinex La) 600 mg PO TID [facility] Last Admin: 05/01/18 17:21 Dose: 600 mg Moxifloxacin HCl (Avelox Iv 400mg/250ml Ns) 400 mg in 250 mls @ 167 mls/hr IVPB Q24H [facility]; Protocol Last Admin: 05/01/18 17:20 Dose: 167 mls/hr Insulin Glargine (Lantus) 17 unit SC [facility] Last Admin: 04/30/18 21:39 Dose: 17 unit Insulin Human Regular (Novolin R) 0 unit SC [facility]; Protocol Last Admin: 05/01/18 17:19 Dose: 6 units Lorazepam (Ativan) 2 mg PO Q12H PRN PRN Reason: Anxiety Montelukast Sodium (Singulair) 10 mg PO HS [facility] Last Admin: 04/30/18 21:41 Dose: 10 mg Morphine Sulfate (Morphine) 2 mg IVP Q4 PRN PRN Reason: Pain, severe (8-10) Last Admin: 05/01/18 18:09 Dose: 2 mg Prednisone (Prednisone Tab) 20 mg PO DAILY [facility] Last Admin: 05/01/18 09:44 Dose: 20 mg Quetiapine Fumarate (Seroquel Xr) 400 mg PO Q12 [facility] Last Admin: 05/01/18 09:44 Dose: 400 mg Sertraline HCl (Zoloft) 100 mg PO BID [facility] Last Admin: 05/01/18 19:19 Dose: 100 mg Trazodone HCl (Desyrel) 150 mg PO HS [facility] Last Admin: 04/30/18 21:40 Dose: 150 mg - Labs Labs: 04/29/18 15:34 04/29/18 15:34
[2018-05-01] MEDS: (Lantus) Insulin Glargine, Recombinant SC SCH (22:02)
[2018-05-01] MEDS: Ciprofloxacin 400mg/200ml D5W 400 MG/200 ML BAG IVPB SCH (23:01)
[2018-05-02] MEDS: Albuterol-Ipratrop 3 mg / 0.5 (3 ml) UD INH SCH ×6 (00:45→19:12)
--- NOTE | 2018-05-02 02:00 | PN ---
DATE: 05/01/2018 SUBJECTIVE: The patient gets a lot of pain in her neck. The patient's secretions are getting better. Her sound is coming back. Her hoarseness has gone. She has no fever. No nausea, vomiting. She has occasional wheezing. Blood sugars are up. Her sputum production has gone down. PHYSICAL EXAMINATION: VITAL SIGNS: Blood pressure 116/73, pulse 89, respiratory rate 20, temperature 98.5. SKIN: No rash. LUNGS: Bilateral inspiratory and expiratory rhonchi. CARDIOVASCULAR SYSTEM: S1, S2. Regular. ABDOMEN: Soft, nontender. Bowel sounds are positive. ASSESSMENT: 1. Acute laryngitis, rule out bronchitis, rule out pneumonia. 2. Type 2 diabetes. 3. Hypertension. 4. Bronchial asthma. PLAN: Continue antibiotics. Follow sputum cultures. The patient's sputum is positive for Pseudomonas which is sensitive to ciprofloxacin, Zosyn, gentamicin, meropenem. We will start the patient on ciprofloxacin. The patient is on Avelox. We will continue intravenous ciprofloxacin. We will discontinue Avelox, and we will start the patient on Cipro and monitor respiratory status. Ad Khan MD
[2018-05-02] MEDS: (Novolin R) Insulin Human Regular 100 units/ml vial SC SCH ×4 (09:31→21:26)
[2018-05-02] MEDS: QUEtiapine 200 mg XR Tab PO SCH ×2 (09:31→21:26)
[2018-05-02] MEDS: guaiFENesin 600 mg ER Tab PO SCH ×3 (09:32→17:20)
[2018-05-02] MEDS: Enoxaparin 40 mg Syringe SC SCH (09:32)
[2018-05-02] MEDS: Ciprofloxacin 400mg/200ml D5W 400 MG/200 ML BAG IVPB SCH ×2 (11:54→22:43)
[2018-05-02] MEDS: Acetylcysteine 20% Inhal Soln (4ml) INH SCH (19:12)
[2018-05-02] MEDS: (Lantus) Insulin Glargine, Recombinant SC SCH (21:27)
--- NOTE | 2018-05-02 23:31 | CON ---
DATE: 05/02/2018 REASON FOR CONSULTATION: Throat pain/dysphagia. HISTORY OF PRESENT ILLNESS: This is a 62-year-old female who has been having dysphagia, constant, moderate in intensity, bilateral pharyngeal with pain and tightness feeling for the past month. There is no nasal congestion. PAST MEDICAL HISTORY: As noted in the chart by me. MEDICATIONS: As noted in the chart by me. ALLERGIES: NOTED IN THE CHART BY ME. PHYSICAL EXAMINATION: HEAD: Atraumatic and normocephalic. FACE: Good facial movements bilaterally. CONSTITUTIONAL: Well fed, well nourished. COMMUNICATION: Communicates well and appropriately. EXTERNAL NOSE AND EARS: No masses. No lesions. No erythema. No edema. INTERNAL NOSE AND EARS: Deviated septum. No masses. No lesions. No erythema. No edema. ORAL CAVITY AND OROPHARYNX: No masses. No lesions. No erythema. No edema. NECK: Supple. Trach is clean, dry and intact. Thyroid cannot be palpated secondary to trach placement. LYMPH NODES: No lymphadenopathy of the neck. ASSESSMENT: 1. Dysphagia. 2. Deviated septum. PLAN: We will do flexible laryngoscopy tomorrow. Jake Keller MD
[2018-05-03] MEDS: Albuterol-Ipratrop 3 mg / 0.5 (3 ml) UD INH SCH ×6 (00:57→19:19)
[2018-05-03] MEDS: Acetylcysteine 20% Inhal Soln (4ml) INH SCH ×4 (04:18→19:19)
[2018-05-03 07:22] LABS: BASO % 0.4 % (0.0-2.0); EOS # 0.1 K/uL (0.0-0.7); EOS % 1.4 % (0.0-4.0); HEMOGLOBIN 11.2 g/dL (11.0-16.0); LYMPH # 2.2 K/uL (1.0-4.3); LYMPH % 26.9 % (20.0-40.0); MEAN CELL VOLUME 80.3 fL (81.0-99.0); MEAN CORPUSCULAR HEMOGLOBIN 25.8 pg (27.0-31.0); MEAN CORPUSCULAR HGB CONC 32.2 g/dL (33.0-37.0); MEAN PLATELET VOLUME 8.1 fL (7.2-11.7); MONO # 0.6 K/uL (0.0-0.8); MONO % 7.8 % (0.0-10.0); NEUT # 5.2 K/uL (1.8-7.0); NEUT % 63.5 % (50.0-75.0); RBC 4.32 Mil/uL (3.80-5.20); RED CELL DISTRIBUTION WIDTH 15.7 % (11.5-14.5); WHITE BLOOD COUNT 8.1 K/uL (4.8-10.8)
[2018-05-03 07:56] LABS: BLOOD UREA NITROGEN 16 mg/dL (7-17); CALCIUM 9.2 mg/dl (8.6-10.4); GFR NON-AFRICAN AMERICAN > 60
[2018-05-03] MEDS: (Novolin R) Insulin Human Regular 100 units/ml vial SC SCH ×4 (08:26→22:37)
--- NOTE | 2018-05-03 08:28 | CP.PCM.PN ---
Subjective - Date & Time of Evaluation Date of Evaluation: 05/02/18 Time of Evaluation: 07:40 - Subjective Subjective: dictated Objective - Vital Signs/Intake and Output Vital Signs (last 24 hours): Temp Pulse Resp BP Pulse Ox 98.0 F 69 20 114/66 99 05/03/18 07:47 05/03/18 07:47 05/03/18 07:47 05/03/18 07:47 05/03/18 07:47 Intake and Output: 05/03/18 05/03/18 06:59 18:59 Intake Total 1100 Balance 1100 - Medications Medications: Current Medications Acetaminophen (Tylenol 325mg Tab) 650 mg PO Q6H PRN PRN Reason: Pain, Mild (1-3) Last Admin: 04/29/18 21:27 Dose: 650 mg Acetylcysteine (Acetylcysteine 20%) 4 ml INH RQ6 [facility] Last Admin: 05/03/18 04:18 Dose: 4 ml Albuterol/Ipratropium (Duoneb 3 Mg/0.5 Mg (3 Ml) Ud) 3 ml INH RQ4 [facility] Last Admin: 05/03/18 04:17 Dose: 3 ml Enoxaparin Sodium (Lovenox) 40 mg SC DAILY [facility] Last Admin: 05/02/18 09:32 Dose: 40 mg Gabapentin (Neurontin) 800 mg PO TID [facility] Last Admin: 05/02/18 17:20 Dose: 800 mg Guaifenesin (Mucinex La) 600 mg PO TID [facility] Last Admin: 05/02/18 17:20 Dose: 600 mg Ciprofloxacin (Cipro 400mg/200ml Dsw) 400 mg in 200 mls @ 133 mls/hr IVPB Q12H [facility]; Protocol Last Admin: 05/02/18 22:43 Dose: 133 mls/hr Insulin Glargine (Lantus) 17 unit SC HS [facility] Last Admin: 05/02/18 21:27 Dose: 17 unit Insulin Human Regular (Novolin R) 0 unit SC [facility]; Protocol Last Admin: 05/03/18 08:26 Dose: Not Given Lorazepam (Ativan) 2 mg PO Q12H PRN PRN Reason: Anxiety Montelukast Sodium (Singulair) 10 mg PO HS [facility] Last Admin: 05/02/18 21:26 Dose: 10 mg Morphine Sulfate (Morphine) 2 mg IVP Q4 PRN PRN Reason: Pain, severe (8-10) Last Admin: 05/03/18 06:24 Dose: 2 mg Prednisone (Prednisone Tab) 20 mg PO DAILY [facility] Last Admin: 05/02/18 09:32 Dose: 20 mg Quetiapine Fumarate (Seroquel Xr) 400 mg PO Q12 [facility] Last Admin: 05/02/18 21:26 Dose: 400 mg Sertraline HCl (Zoloft) 100 mg PO BID [facility] Last Admin: 05/02/18 17:20 Dose: 100 mg Trazodone HCl (Desyrel) 150 mg PO HS [facility] Last Admin: 05/02/18 21:26 Dose: 150 mg - Labs Labs: 05/03/18 07:11 05/03/18 07:11
[2018-05-03] MEDS: Enoxaparin 40 mg Syringe SC SCH (10:07)
[2018-05-03] MEDS: QUEtiapine 200 mg XR Tab PO SCH ×2 (10:08→22:56)
[2018-05-03] MEDS: guaiFENesin 600 mg ER Tab PO SCH ×3 (10:08→17:32)
[2018-05-03] MEDS: Ciprofloxacin 400mg/200ml D5W 400 MG/200 ML BAG IVPB SCH ×2 (10:51→22:38)
--- NOTE | 2018-05-03 12:54 | CP.PCM.PN ---
Subjective - Date & Time of Evaluation Date of Evaluation: 05/03/18 Time of Evaluation: 12:53 - Subjective Subjective: Pulmonary follow up, Covering Dr Rosado The Patient was seen and examined at the bedside, Medical records reviewed, and management issues were discussed and formulated with the house staff. Events reviewed Patient is a 62 year old femal with h/o COPD, tracheostomy, CHF, HTN, DM, Sleep apnea syndrome, siezure disorder, anxiety, depression pression presented to the ED with c/o SOB and mucous clogging her tube. She was recently admitted and experieneced this same issue on admission. Patient seen and examined at bedside, afebrile. She is extremly anxious about her SOB and is having a difficult speaking Thick secretions in tube. Denies fever, chills, nausea, vomting Objective - Vital Signs/Intake and Output Vital Signs (last 24 hours): Temp Pulse Resp BP Pulse Ox 98.0 F 69 20 114/66 99 05/03/18 07:47 05/03/18 07:47 05/03/18 07:47 05/03/18 07:47 05/03/18 07:47 Intake and Output: 05/03/18 05/03/18 06:59 18:59 Intake Total 1100 Balance 1100 - Medications Medications: Current Medications Acetaminophen (Tylenol 325mg Tab) 650 mg PO Q6H PRN PRN Reason: Pain, Mild (1-3) Last Admin: 04/29/18 21:27 Dose: 650 mg Acetylcysteine (Acetylcysteine 20%) 4 ml INH RQ6 [facility] Last Admin: 05/03/18 07:55 Dose: 4 ml Albuterol/Ipratropium (Duoneb 3 Mg/0.5 Mg (3 Ml) Ud) 3 ml INH RQ4 [facility] Last Admin: 05/03/18 07:55 Dose: 3 ml Enoxaparin Sodium (Lovenox) 40 mg SC DAILY [facility] Last Admin: 05/03/18 10:07 Dose: 40 mg Gabapentin (Neurontin) 800 mg PO TID [facility] Last Admin: 05/03/18 10:09 Dose: 800 mg Guaifenesin (Mucinex La) 600 mg PO TID [facility] Last Admin: 05/03/18 10:08 Dose: 600 mg Ciprofloxacin (Cipro 400mg/200ml Dsw) 400 mg in 200 mls @ 133 mls/hr IVPB Q12H [facility]; Protocol Last Admin: 05/03/18 10:51 Dose: 133 mls/hr Insulin Glargine (Lantus) 17 unit SC [facility] Last Admin: 05/02/18 21:27 Dose: 17 unit Insulin Human Regular (Novolin R) 0 unit SC [facility]; Protocol Last Admin: 05/03/18 11:44 Dose: 2 units Lorazepam (Ativan) 2 mg PO Q12H PRN PRN Reason: Anxiety Montelukast Sodium (Singulair) 10 mg PO [facility] Last Admin: 05/02/18 21:26 Dose: 10 mg Morphine Sulfate (Morphine) 2 mg IVP Q4 PRN PRN Reason: Pain, severe (8-10) Last Admin: 05/03/18 10:52 Dose: 2 mg Prednisone (Prednisone Tab) 20 mg PO DAILY [facility] Last Admin: 05/03/18 10:09 Dose: 20 mg Quetiapine Fumarate (Seroquel Xr) 400 mg PO Q12 [facility] Last Admin: 05/03/18 10:08 Dose: 400 mg Sertraline HCl (Zoloft) 100 mg PO BID [facility] Last Admin: 05/03/18 10:09 Dose: 100 mg Trazodone HCl (Desyrel) 150 mg PO [facility] Last Admin: 05/02/18 21:26 Dose: 150 mg - Labs Labs: 05/03/18 07:11 05/03/18 07:11 - Constitutional Appears: Well, Non-toxic - Head Exam Head Exam: ATRAUMATIC, NORMAL INSPECTION, NORMOCEPHALIC - Eye Exam Eye Exam: EOMI, Normal appearance Pupil Exam: NORMAL ACCOMODATION - ENT Exam ENT Exam: Mucous Membranes Moist, Normal Exam - Neck Exam Neck Exam: Full ROM. absent: Lymphadenopathy, Meningismus, Normal Inspection (Trach site clean, intact) - Respiratory Exam Respiratory Exam: Decreased Breath Sounds, NORMAL BREATHING PATTERN. absent: Accessory Muscle Use, Chest Wall Tenderness - Cardiovascular Exam Cardiovascular Exam: REGULAR RHYTHM, RRR, +S1, +S2. absent: Bradycardia, Tachycardia, JVD Assessment and Plan (1) COPD (chronic obstructive pulmonary disease) Status: Acute (2) Respiratory distress Status: Acute (3) Tracheostomy dependence Status: Acute (4) Tracheobronchitis Status: Acute (5) Sleep apnea syndrome Status: Chronic - Assessment and Plan (Free Text) Assessment: COPD -continue Duoneb -Continue PO prednisone -Continue mucinex -Continue Singulair -Chest xray 3/4: Interval improved aeration in the lungs with residual mild haziness in the left lower lobe which may represent atelectasis. Superimposed pneumonia cannot be excluded Tracheostomy/tracheobronchitis - gram stain 3/4: rare polymorph WBCs, few yeast, few gram positive cocci, moderate gram positive bacilli Sputum culture Pos for Pseudomonas, sensitive to Cipro - Continue abx - Seroquel and ativan for anxiety - Consider medication for pain control as patient request
[2018-05-03] MEDS: (Lantus) Insulin Glargine, Recombinant SC SCH (22:37)
--- NOTE | 2018-05-03 23:00 | CP.PCM.PN ---
Subjective - Date & Time of Evaluation Date of Evaluation: 05/03/18 Time of Evaluation: 07:20 - Subjective Subjective: dictated Objective - Vital Signs/Intake and Output Vital Signs (last 24 hours): Temp Pulse Resp BP Pulse Ox 98.8 F 80 20 120/65 98 05/03/18 15:00 05/03/18 15:00 05/03/18 15:00 05/03/18 15:00 05/03/18 15:00 Intake and Output: 05/03/18 05/04/18 18:59 06:59 Intake Total 500 Balance 500 - Medications Medications: Current Medications Acetaminophen (Tylenol 325mg Tab) 650 mg PO Q6H PRN PRN Reason: Pain, Mild (1-3) Last Admin: 04/29/18 21:27 Dose: 650 mg Acetylcysteine (Acetylcysteine 20%) 4 ml INH RQ6 [facility] Last Admin: 05/03/18 19:19 Dose: 4 ml Albuterol/Ipratropium (Duoneb 3 Mg/0.5 Mg (3 Ml) Ud) 3 ml INH RQ4 [facility] Last Admin: 05/03/18 19:19 Dose: 3 ml Enoxaparin Sodium (Lovenox) 40 mg SC DAILY [facility] Last Admin: 05/03/18 10:07 Dose: 40 mg Gabapentin (Neurontin) 800 mg PO TID [facility] Last Admin: 05/03/18 17:32 Dose: 800 mg Guaifenesin (Mucinex La) 600 mg PO TID [facility] Last Admin: 05/03/18 17:32 Dose: 600 mg Ciprofloxacin (Cipro 400mg/200ml Dsw) 400 mg in 200 mls @ 133 mls/hr IVPB Q12H [facility]; Protocol Last Admin: 05/03/18 22:38 Dose: 133 mls/hr Insulin Glargine (Lantus) 17 unit SC HS [facility] Last Admin: 05/03/18 22:37 Dose: 17 unit Insulin Human Regular (Novolin R) 0 unit SC [facility]; Protocol Last Admin: 05/03/18 22:37 Dose: 4 units Lorazepam (Ativan) 2 mg PO Q12H PRN PRN Reason: Anxiety Montelukast Sodium (Singulair) 10 mg PO HS [facility] Last Admin: 05/03/18 22:36 Dose: 10 mg Morphine Sulfate (Morphine) 2 mg IVP Q4 PRN PRN Reason: Pain, severe (8-10) Last Admin: 05/03/18 19:53 Dose: 2 mg Pantoprazole Sodium (Protonix Ec Tab) 40 mg PO BID [facility] Prednisone (Prednisone Tab) 20 mg PO DAILY [facility] Last Admin: 05/03/18 10:09 Dose: 20 mg Quetiapine Fumarate (Seroquel Xr) 400 mg PO Q12 [facility] Last Admin: 05/03/18 22:56 Dose: 400 mg Sertraline HCl (Zoloft) 100 mg PO BID [facility] Last Admin: 05/03/18 17:32 Dose: 100 mg Trazodone HCl (Desyrel) 150 mg PO HS [facility] Last Admin: 05/03/18 22:36 Dose: 150 mg - Labs Labs: 05/03/18 07:11 05/03/18 07:11
[2018-05-04] MEDS: Albuterol-Ipratrop 3 mg / 0.5 (3 ml) UD INH SCH ×7 (00:14→23:57)
[2018-05-04] MEDS: Acetylcysteine 20% Inhal Soln (4ml) INH SCH ×5 (03:34→23:57)
--- NOTE | 2018-05-04 04:06 | OP ---
PROCEDURE DATE: 05/03/2018 PRE-PROCEDURE DIAGNOSIS: Dysphagia. POST-PROCEDURE DIAGNOSIS: Dysphagia. PROCEDURE: Flexible laryngoscopy. SIGNIFICANT FINDINGS: Arytenoid erythema. DESCRIPTION OF PROCEDURE: The patient was placed in a seated position. The nose was decongested using Afrin. Flexible laryngoscope was inserted into the nasal cavity, passed through the nasopharynx, oropharynx, and hypopharynx. The pharyngeal wall, base of tongue, vallecula, epiglottis, AE folds, false cords, true cords, arytenoids, and piriform sinuses were brought into view. Arytenoid erythema was noted bilaterally. Vocal cords were noted to be mobile bilaterally. The scope was removed. The patient tolerated the procedure well. Jake Keller MD
--- NOTE | 2018-05-04 05:59 | PN ---
DATE: 05/04/2017 SUBJECTIVE: The patient was scoped by Otorhinolaryngology, and the patient is in lot of acid reflux with acid collection in the throat, and the patient does not have any evidence of malignancy in the trachea. The patient is still coughing and wheezing, and she has hoarseness of voice. She has no fever. No chills. No nausea or vomiting. PHYSICAL EXAMINATION: VITAL SIGNS: Blood pressure 140/80, pulse 74, respiratory rate 20, and temperature 99. LUNGS: Bilateral inspiratory and expiratory rhonchi. Decreased air entry. PMI not localized. CARDIOVASCULAR SYSTEM: S1 and S2. Regular. ABDOMEN: Soft. Nontender. Bowel sounds are positive. CENTRAL NERVOUS SYSTEM: Awake, alert and oriented x3. ASSESSMENT: 1. Tracheobronchitis with gastroesophageal reflux disease. 2. Diabetes. 3. Hypertension. 4. Bronchial asthma. PLAN: Protonix 40 mg b.i.d. Antibiotics suctioning. Monitor patient. Ad Khan MD
[2018-05-04] MEDS: (Novolin R) Insulin Human Regular 100 units/ml vial SC SCH ×4 (07:30→21:32)
[2018-05-04] MEDS: guaiFENesin 600 mg ER Tab PO SCH ×3 (09:34→17:12)
[2018-05-04] MEDS: QUEtiapine 200 mg XR Tab PO SCH ×2 (09:34→21:33)
[2018-05-04] MEDS: Enoxaparin 40 mg Syringe SC SCH (09:34)
[2018-05-04] MEDS: Pantoprazole 40 mg EC Tab PO SCH ×2 (09:34→17:13)
[2018-05-04] MEDS: Ciprofloxacin 400mg/200ml D5W 400 MG/200 ML BAG IVPB SCH ×2 (11:06→22:33)
[2018-05-04] MEDS: (Lantus) Insulin Glargine, Recombinant SC SCH (21:32)
[2018-05-05] MEDS: Albuterol-Ipratrop 3 mg / 0.5 (3 ml) UD INH SCH ×5 (05:49→19:28)
[2018-05-05] MEDS: (Novolin R) Insulin Human Regular 100 units/ml vial SC SCH ×4 (07:33→21:48)
[2018-05-05] MEDS: Acetylcysteine 20% Inhal Soln (4ml) INH SCH ×3 (07:55→19:28)
[2018-05-05] MEDS: Enoxaparin 40 mg Syringe SC SCH (09:09)
[2018-05-05] MEDS: Pantoprazole 40 mg EC Tab PO SCH ×2 (09:09→21:47)
[2018-05-05] MEDS: guaiFENesin 600 mg ER Tab PO SCH ×3 (09:09→17:25)
[2018-05-05] MEDS: QUEtiapine 200 mg XR Tab PO SCH ×2 (09:09→21:47)
[2018-05-05] MEDS: Ciprofloxacin 400mg/200ml D5W 400 MG/200 ML BAG IVPB SCH ×2 (11:08→23:20)
--- NOTE | 2018-05-05 17:33 | CP.PCM.PN ---
Subjective - Date & Time of Evaluation Date of Evaluation: 05/05/18 Time of Evaluation: 17:30 - Subjective Subjective: Pulmonary follow up, Covering Dr Rosado The Patient was seen and examined at the bedside, Medical records reviewed, and management issues were discussed and formulated with the house staff. Events reviewed Patient is a 62 year old femal with h/o COPD, tracheostomy, CHF, HTN, DM, Sleep apnea syndrome, siezure disorder, anxiety, depression pression presented to the ED with c/o SOB and mucous clogging her tube. She was recently admitted and experieneced this same issue on admission. -Chest xray 04/29: Interval improved aeration in the lungs with residual mild haziness in the left lower lobe which may represent atelectasis. Superimposed pneumonia cannot be excluded' - gram stain 04/29: rare polymorph WBCs, few yeast, few gram positive cocci, moderate gram positive bacilli Sputum culture Pos for Pseudomonas, sensitive to Cipro Comfortable, in no apparent distress Afebrile. She is less anxious about her SOB, she is on antianxiety medications and PRN Lorazepam Respiratory secretions clearing up Denies fever, chills, nausea, vomiting, chest pain Pain well controlled with PRN Morphine 2 mg IVP Q4H - Continue Duoneb and mucinex - Continue PO prednisone - Continue Antibiotcs with Cipro for 7 days - Continue Singulair - Continue Seroquel, Trazodone, Sertraline and PRN ativan for anxiety Objective - Vital Signs/Intake and Output Vital Signs (last 24 hours): Temp Pulse Resp BP Pulse Ox 98.2 F 76 20 129/81 98 05/05/18 15:00 05/05/18 15:00 05/05/18 15:00 05/05/18 15:00 05/05/18 15:00 Intake and Output: 05/05/18 05/05/18 06:59 18:59 Intake Total 480 Balance 480 - Medications Medications: Current Medications Acetaminophen (Tylenol 325mg Tab) 650 mg PO Q6H PRN PRN Reason: Pain, Mild (1-3) Last Admin: 04/29/18 21:27 Dose: 650 mg Acetylcysteine (Acetylcysteine 20%) 4 ml INH RQ6 [facility] Last Admin: 05/05/18 12:00 Dose: 4 ml Albuterol/Ipratropium (Duoneb 3 Mg/0.5 Mg (3 Ml) Ud) 3 ml INH RQ4 [facility] Last Admin: 05/05/18 16:58 Dose: 3 ml Enoxaparin Sodium (Lovenox) 40 mg SC DAILY [facility] Last Admin: 05/05/18 09:09 Dose: 40 mg Gabapentin (Neurontin) 800 mg PO TID [facility] Last Admin: 05/05/18 17:25 Dose: 800 mg Guaifenesin (Mucinex La) 600 mg PO TID [facility] Last Admin: 05/05/18 17:25 Dose: 600 mg Ciprofloxacin (Cipro 400mg/200ml Dsw) 400 mg in 200 mls @ 133 mls/hr IVPB Q12H [facility]; Protocol Last Admin: 05/05/18 11:08 Dose: 133 mls/hr Insulin Glargine (Lantus) 17 unit SC [facility] Last Admin: 05/04/18 21:32 Dose: 17 unit Insulin Human Regular (Novolin R) 0 unit SC [facility]; Protocol Last Admin: 05/05/18 17:26 Dose: 4 units Lorazepam (Ativan) 2 mg PO Q12H PRN PRN Reason: Anxiety Montelukast Sodium (Singulair) 10 mg PO [facility] Last Admin: 05/04/18 21:33 Dose: 10 mg Morphine Sulfate (Morphine) 2 mg IVP Q4 PRN PRN Reason: Pain, severe (8-10) Last Admin: 05/05/18 17:25 Dose: 2 mg Pantoprazole Sodium (Protonix Ec Tab) 40 mg PO BID [facility] Last Admin: 05/05/18 09:09 Dose: 40 mg Prednisone (Prednisone Tab) 20 mg PO DAILY [facility] Last Admin: 05/05/18 09:09 Dose: 20 mg Quetiapine Fumarate (Seroquel Xr) 400 mg PO Q12 [facility] Last Admin: 05/05/18 09:09 Dose: 400 mg Sertraline HCl (Zoloft) 100 mg PO BID [facility] Last Admin: 05/05/18 17:26 Dose: 100 mg Trazodone HCl (Desyrel) 150 mg PO [facility] Last Admin: 05/04/18 21:33 Dose: 150 mg - Labs Labs: 05/03/18 07:11 05/03/18 07:11 - Head Exam Head Exam: ATRAUMATIC, NORMAL INSPECTION - Eye Exam Eye Exam: EOMI, Normal appearance, PERRL Pupil Exam: NORMAL ACCOMODATION - ENT Exam ENT Exam: Mucous Membranes Moist - Neck Exam Neck Exam: Full ROM. absent: Lymphadenopathy, Tenderness, Thyromegaly - Respiratory Exam Respiratory Exam: Clear to Ausculation Bilateral, NORMAL BREATHING PATTERN - Cardiovascular Exam Cardiovascular Exam: REGULAR RHYTHM, +S1, +S2. absent: Murmur - GI/Abdominal Exam GI & Abdominal Exam: Soft, Normal Bowel Sounds. absent: Tenderness Assessment and Plan (1) COPD (chronic obstructive pulmonary disease) Status: Acute (2) Respiratory distress Status: Acute (3) Tracheostomy dependence Status: Acute (4) Tracheobronchitis Status: Acute (5) Sleep apnea syndrome Status: Chronic
--- NOTE | 2018-05-05 18:22 | CP.PCM.PN ---
Subjective - Date & Time of Evaluation Date of Evaluation: 05/04/18 Time of Evaluation: 07:40 - Subjective Subjective: dictated Objective - Vital Signs/Intake and Output Vital Signs (last 24 hours): Temp Pulse Resp BP Pulse Ox 98.2 F 76 20 129/81 98 05/05/18 15:00 05/05/18 15:00 05/05/18 15:00 05/05/18 15:00 05/05/18 15:00 Intake and Output: 05/05/18 05/05/18 06:59 18:59 Intake Total 480 Balance 480 - Medications Medications: Current Medications Acetaminophen (Tylenol 325mg Tab) 650 mg PO Q6H PRN PRN Reason: Pain, Mild (1-3) Last Admin: 04/29/18 21:27 Dose: 650 mg Acetylcysteine (Acetylcysteine 20%) 4 ml INH RQ6 [facility] Last Admin: 05/05/18 12:00 Dose: 4 ml Albuterol/Ipratropium (Duoneb 3 Mg/0.5 Mg (3 Ml) Ud) 3 ml INH RQ4 [facility] Last Admin: 05/05/18 16:58 Dose: 3 ml Enoxaparin Sodium (Lovenox) 40 mg SC DAILY [facility] Last Admin: 05/05/18 09:09 Dose: 40 mg Gabapentin (Neurontin) 800 mg PO TID [facility] Last Admin: 05/05/18 17:25 Dose: 800 mg Guaifenesin (Mucinex La) 600 mg PO TID [facility] Last Admin: 05/05/18 17:25 Dose: 600 mg Ciprofloxacin (Cipro 400mg/200ml Dsw) 400 mg in 200 mls @ 133 mls/hr IVPB Q12H [facility]; Protocol Last Admin: 05/05/18 11:08 Dose: 133 mls/hr Insulin Glargine (Lantus) 17 unit SC HS [facility] Last Admin: 05/04/18 21:32 Dose: 17 unit Insulin Human Regular (Novolin R) 0 unit SC [facility]; Protocol Last Admin: 05/05/18 17:26 Dose: 4 units Lorazepam (Ativan) 2 mg PO Q12H PRN PRN Reason: Anxiety Montelukast Sodium (Singulair) 10 mg PO HS [facility] Last Admin: 05/04/18 21:33 Dose: 10 mg Morphine Sulfate (Morphine) 2 mg IVP Q4 PRN PRN Reason: Pain, severe (8-10) Last Admin: 05/05/18 17:25 Dose: 2 mg Pantoprazole Sodium (Protonix Ec Tab) 40 mg PO BID [facility] Last Admin: 05/05/18 09:09 Dose: 40 mg Prednisone (Prednisone Tab) 20 mg PO DAILY [facility] Last Admin: 05/05/18 09:09 Dose: 20 mg Quetiapine Fumarate (Seroquel Xr) 400 mg PO Q12 [facility] Last Admin: 05/05/18 09:09 Dose: 400 mg Sertraline HCl (Zoloft) 100 mg PO BID [facility] Last Admin: 05/05/18 17:26 Dose: 100 mg Trazodone HCl (Desyrel) 150 mg PO HS [facility] Last Admin: 05/04/18 21:33 Dose: 150 mg - Labs Labs: 05/03/18 07:11 05/03/18 07:11
--- NOTE | 2018-05-05 18:23 | CP.PCM.PN ---
Subjective - Date & Time of Evaluation Date of Evaluation: 05/05/18 Time of Evaluation: 07:40 - Subjective Subjective: dictated Objective - Vital Signs/Intake and Output Vital Signs (last 24 hours): Temp Pulse Resp BP Pulse Ox 98.2 F 76 20 129/81 98 05/05/18 15:00 05/05/18 15:00 05/05/18 15:00 05/05/18 15:00 05/05/18 15:00 Intake and Output: 05/05/18 05/05/18 06:59 18:59 Intake Total 480 Balance 480 - Medications Medications: Current Medications Acetaminophen (Tylenol 325mg Tab) 650 mg PO Q6H PRN PRN Reason: Pain, Mild (1-3) Last Admin: 04/29/18 21:27 Dose: 650 mg Acetylcysteine (Acetylcysteine 20%) 4 ml INH RQ6 [facility] Last Admin: 05/05/18 12:00 Dose: 4 ml Albuterol/Ipratropium (Duoneb 3 Mg/0.5 Mg (3 Ml) Ud) 3 ml INH RQ4 [facility] Last Admin: 05/05/18 16:58 Dose: 3 ml Enoxaparin Sodium (Lovenox) 40 mg SC DAILY [facility] Last Admin: 05/05/18 09:09 Dose: 40 mg Gabapentin (Neurontin) 800 mg PO TID [facility] Last Admin: 05/05/18 17:25 Dose: 800 mg Guaifenesin (Mucinex La) 600 mg PO TID [facility] Last Admin: 05/05/18 17:25 Dose: 600 mg Ciprofloxacin (Cipro 400mg/200ml Dsw) 400 mg in 200 mls @ 133 mls/hr IVPB Q12H [facility]; Protocol Last Admin: 05/05/18 11:08 Dose: 133 mls/hr Insulin Glargine (Lantus) 17 unit SC HS [facility] Last Admin: 05/04/18 21:32 Dose: 17 unit Insulin Human Regular (Novolin R) 0 unit SC [facility]; Protocol Last Admin: 05/05/18 17:26 Dose: 4 units Lorazepam (Ativan) 2 mg PO Q12H PRN PRN Reason: Anxiety Montelukast Sodium (Singulair) 10 mg PO HS [facility] Last Admin: 05/04/18 21:33 Dose: 10 mg Morphine Sulfate (Morphine) 2 mg IVP Q4 PRN PRN Reason: Pain, severe (8-10) Last Admin: 05/05/18 17:25 Dose: 2 mg Pantoprazole Sodium (Protonix Ec Tab) 40 mg PO BID [facility] Last Admin: 05/05/18 09:09 Dose: 40 mg Prednisone (Prednisone Tab) 20 mg PO DAILY [facility] Last Admin: 05/05/18 09:09 Dose: 20 mg Quetiapine Fumarate (Seroquel Xr) 400 mg PO Q12 [facility] Last Admin: 05/05/18 09:09 Dose: 400 mg Sertraline HCl (Zoloft) 100 mg PO BID [facility] Last Admin: 05/05/18 17:26 Dose: 100 mg Trazodone HCl (Desyrel) 150 mg PO HS [facility] Last Admin: 05/04/18 21:33 Dose: 150 mg - Labs Labs: 05/03/18 07:11 05/03/18 07:11
[2018-05-05] MEDS: (Lantus) Insulin Glargine, Recombinant SC SCH (21:48)
--- NOTE | 2018-05-05 22:49 | PN ---
DATE: 05/05/2018 SUBJECTIVE: The patient is feeling better. Afebrile. Less cough. Less shortness of breath. Improved voice. PHYSICAL EXAMINATION: VITAL SIGNS: Blood pressure 118/69, pulse 74, respiratory rate 20, temperature 98. LUNGS: Bilateral decreased air entry. Bilateral inspiratory and expiratory rhonchi. CARDIOVASCULAR SYSTEM: PMI not localized. S1, S2 regular. ABDOMEN: Soft, nontender. Bowel sounds are positive. ASSESSMENT: 1. Tracheobronchitis, pneumonia. 2. Acid reflux. 3. Morbid obesity. 4. Type 2 diabetes. 5. Hypertension. PLAN: Accu-Check sliding scale. Antibiotics. Tracheal suctioning. Monitor the patient. Ad Khan MD
--- NOTE | 2018-05-05 23:07 | PN ---
DATE: 05/04/2018 SUBJECTIVE: The patient is still with hoarseness of voice, cough, wheezing, sputum production, status post upper endoscopy. Other than the muscular pain and acid reflux, no other changes have been noticed on endoscopy. PHYSICAL EXAMINATION: VITAL SIGNS: Blood pressure 130/81, pulse 76, respiratory rate 20, temperature 98.1. LUNGS: Clear. No rales. No rhonchi. CARDIOVASCULAR SYSTEM: PMI not localized. CENTRAL NERVOUS SYSTEM: Awake, alert, oriented x3. ASSESSMENT: 1. Tracheobronchitis, rule out pneumonia. 2. Pain at the tracheostomy site. Most likely it is combination of gastroesophageal reflux disease and muscle cramping. 3. Type 2 diabetes. 4. Depression. PLAN: Accu-Chek. Sliding scale. Tight blood sugar control. Taper steroids. Antibiotics. Ad Khan MD
[2018-05-06] MEDS: Albuterol-Ipratrop 3 mg / 0.5 (3 ml) UD INH SCH ×6 (03:25→19:31)
[2018-05-06] MEDS: Acetylcysteine 20% Inhal Soln (4ml) INH SCH ×4 (07:49→19:36)
[2018-05-06] MEDS: (Novolin R) Insulin Human Regular 100 units/ml vial SC SCH ×4 (08:05→21:44)
[2018-05-06] MEDS: QUEtiapine 200 mg XR Tab PO SCH ×2 (10:10→22:02)
[2018-05-06] MEDS: Pantoprazole 40 mg EC Tab PO SCH ×2 (10:10→17:39)
[2018-05-06] MEDS: guaiFENesin 600 mg ER Tab PO SCH ×3 (10:13→17:40)
[2018-05-06] MEDS: Enoxaparin 40 mg Syringe SC SCH (10:21)
[2018-05-06] MEDS: Ciprofloxacin 400mg/200ml D5W 400 MG/200 ML BAG IVPB SCH (10:30)
[2018-05-06 14:22] LABS: HEMOGLOBIN 11.8 g/dL (11.0-16.0); MEAN CELL VOLUME 80.4 fL (81.0-99.0); MEAN CORPUSCULAR HEMOGLOBIN 25.7 pg (27.0-31.0); MEAN CORPUSCULAR HGB CONC 31.9 g/dL (33.0-37.0); MEAN PLATELET VOLUME 8.4 fL (7.2-11.7); RBC 4.59 Mil/uL (3.80-5.20); RED CELL DISTRIBUTION WIDTH 16.1 % (11.5-14.5); WHITE BLOOD COUNT 10.6 K/uL (4.8-10.8)
[2018-05-06 14:37] LABS: BLOOD UREA NITROGEN 13 mg/dL (7-17); CALCIUM 8.9 mg/dl (8.6-10.4); GFR NON-AFRICAN AMERICAN > 60
[2018-05-06] MEDS: (Lantus) Insulin Glargine, Recombinant SC SCH (22:02)
--- NOTE | 2018-05-06 23:06 | CP.PCM.PN ---
Subjective - Date & Time of Evaluation Date of Evaluation: 05/06/18 Time of Evaluation: 08:20 - Subjective Subjective: dictated Objective - Vital Signs/Intake and Output Vital Signs (last 24 hours): Temp Pulse Resp BP Pulse Ox 97.7 F 85 20 132/82 96 05/06/18 15:00 05/06/18 15:00 05/06/18 15:00 05/06/18 15:00 05/06/18 15:00 - Medications Medications: Current Medications Acetaminophen (Tylenol 325mg Tab) 650 mg PO Q6H PRN PRN Reason: Pain, Mild (1-3) Last Admin: 04/29/18 21:27 Dose: 650 mg Acetylcysteine (Acetylcysteine 20%) 4 ml INH RQ6 [facility] Last Admin: 05/06/18 19:36 Dose: 4 ml Albuterol/Ipratropium (Duoneb 3 Mg/0.5 Mg (3 Ml) Ud) 3 ml INH RQ4 [facility] Last Admin: 05/06/18 19:31 Dose: 3 ml Enoxaparin Sodium (Lovenox) 40 mg SC DAILY [facility] Last Admin: 05/06/18 10:21 Dose: 40 mg Gabapentin (Neurontin) 800 mg PO TID [facility] Last Admin: 05/06/18 17:40 Dose: 800 mg Guaifenesin (Mucinex La) 600 mg PO TID [facility] Last Admin: 05/06/18 17:40 Dose: 600 mg Ciprofloxacin (Cipro 400mg/200ml Dsw) 400 mg in 200 mls @ 133 mls/hr IVPB Q12H [facility]; Protocol Last Admin: 05/06/18 10:30 Dose: 133 mls/hr Insulin Glargine (Lantus) 17 unit SC [facility] Last Admin: 05/06/18 22:02 Dose: 17 unit Insulin Human Regular (Novolin R) 0 unit SC [facility]; Protocol Last Admin: 05/06/18 21:44 Dose: Not Given Lorazepam (Ativan) 2 mg PO Q12H PRN PRN Reason: Anxiety Montelukast Sodium (Singulair) 10 mg PO HS [facility] Last Admin: 05/06/18 22:02 Dose: 10 mg Morphine Sulfate (Morphine) 2 mg IVP Q4 PRN PRN Reason: Pain, severe (8-10) Last Admin: 05/06/18 22:00 Dose: 2 mg Pantoprazole Sodium (Protonix Ec Tab) 40 mg PO BID [facility] Last Admin: 05/06/18 17:39 Dose: 40 mg Prednisone (Prednisone Tab) 20 mg PO DAILY [facility] Last Admin: 05/06/18 10:21 Dose: 20 mg Quetiapine Fumarate (Seroquel Xr) 400 mg PO Q12 [facility] Last Admin: 05/06/18 22:02 Dose: 400 mg Sertraline HCl (Zoloft) 100 mg PO BID [facility] Last Admin: 05/06/18 17:39 Dose: 100 mg Trazodone HCl (Desyrel) 150 mg PO HS [facility] Last Admin: 05/06/18 22:02 Dose: 150 mg - Labs Labs: 05/06/18 14:08 05/06/18 14:08
[2018-05-07] MEDS: Albuterol-Ipratrop 3 mg / 0.5 (3 ml) UD INH SCH ×5 (00:05→15:45)
--- NOTE | 2018-05-07 01:51 | PN ---
DATE: 05/06/2018 SUBJECTIVE: The patient is feeling better. Her hoarseness of voice has gone down. She has less cough, less shortness of breath, less wheezing. She has been on Protonix twice a day. No fever. No chills. PHYSICAL EXAMINATION: VITAL SIGNS: Blood pressure 132/82, pulse 85, respiratory rate 20, temperature 97.7. LUNGS: Bilateral inspiratory and expiratory rhonchi. CARDIOVASCULAR SYSTEM: S1 and S2. Regular. ABDOMEN: Soft. ASSESSMENT: 1. Tracheobronchitis, due to Pseudomonas. 2. Uncontrolled diabetes, due to steroids. 3. Exacerbation of steroids, improving. Taper steroids. 4. Major depression. PLAN: Continue antibiotics, wound care. Monitor the patient. Ad Khan MD
[2018-05-07] MEDS: Acetylcysteine 20% Inhal Soln (4ml) INH SCH ×4 (04:03→15:45)
[2018-05-07] MEDS: (Novolin R) Insulin Human Regular 100 units/ml vial SC SCH ×2 (08:07→11:32)
[2018-05-07 08:11] VITALS: RESP 20
[2018-05-07] MEDS: Pantoprazole 40 mg EC Tab PO SCH (09:37)
[2018-05-07] MEDS: QUEtiapine 200 mg XR Tab PO SCH (09:38)
[2018-05-07] MEDS: Enoxaparin 40 mg Syringe SC SCH (09:38)
[2018-05-07] MEDS: guaiFENesin 600 mg ER Tab PO SCH ×2 (09:38→13:26)
[2018-05-07] MEDS: Ciprofloxacin 400mg/200ml D5W 400 MG/200 ML BAG IVPB SCH (12:34)
--- NOTE | 2018-05-07 15:26 | CP.PCM.PN ---
Subjective - Date & Time of Evaluation Date of Evaluation: 05/07/18 Time of Evaluation: 15:26 - Subjective Subjective: PATIENT SEEN AND EXAMINED AT THE BEDSIDE Objective - Vital Signs/Intake and Output Vital Signs (last 24 hours): Temp Pulse Resp BP Pulse Ox 97.6 F 71 20 159/73 H 98 05/07/18 07:25 05/07/18 07:25 05/07/18 07:25 05/07/18 07:25 05/07/18 07:25 Intake and Output: 05/07/18 05/07/18 06:59 18:59 Intake Total 650 Balance 650 - Medications Medications: Current Medications Acetaminophen (Tylenol 325mg Tab) 650 mg PO Q6H PRN PRN Reason: Pain, Mild (1-3) Last Admin: 04/29/18 21:27 Dose: 650 mg Acetylcysteine (Acetylcysteine 20%) 4 ml INH RQ6 SHAYLA Last Admin: 05/07/18 13:41 Dose: Not Given Albuterol/Ipratropium (Duoneb 3 Mg/0.5 Mg (3 Ml) Ud) 3 ml INH RQ4 SHAYLA Last Admin: 05/07/18 11:35 Dose: 3 ml Enoxaparin Sodium (Lovenox) 40 mg SC DAILY [facility] Last Admin: 05/07/18 09:38 Dose: 40 mg Gabapentin (Neurontin) 800 mg PO TID SHAYLA Last Admin: 05/07/18 13:26 Dose: 800 mg Guaifenesin (Mucinex La) 600 mg PO TID SHAYLA Last Admin: 05/07/18 13:26 Dose: 600 mg Ciprofloxacin (Cipro 400mg/200ml Dsw) 400 mg in 200 mls @ 133 mls/hr IVPB Q12H SHAYLA; Protocol Last Admin: 05/07/18 12:34 Dose: 133 mls/hr Insulin Glargine (Lantus) 17 unit SC HS [facility] Last Admin: 05/06/18 22:02 Dose: 17 unit Insulin Human Regular (Novolin R) 0 unit SC ACHS [facility]; Protocol Last Admin: 05/07/18 11:32 Dose: 3 units Lorazepam (Ativan) 2 mg PO Q12H PRN PRN Reason: Anxiety Montelukast Sodium (Singulair) 10 mg PO HS [facility] Last Admin: 05/06/18 22:02 Dose: 10 mg Morphine Sulfate (Morphine) 2 mg IVP Q4 PRN PRN Reason: Pain, severe (8-10) Last Admin: 05/07/18 14:23 Dose: 2 mg Pantoprazole Sodium (Protonix Ec Tab) 40 mg PO BID [facility] Last Admin: 05/07/18 09:37 Dose: 40 mg Prednisone (Prednisone Tab) 10 mg PO DAILY [facility] Last Admin: 05/07/18 09:37 Dose: 10 mg Quetiapine Fumarate (Seroquel Xr) 400 mg PO Q12 [facility] Last Admin: 05/07/18 09:38 Dose: 400 mg Sertraline HCl (Zoloft) 100 mg PO BID [facility] Last Admin: 05/07/18 09:37 Dose: 100 mg Trazodone HCl (Desyrel) 150 mg PO HS [facility] Last Admin: 05/06/18 22:02 Dose: 150 mg - Labs Labs: 05/06/18 14:08 05/06/18 14:08 Assessment and Plan - Assessment and Plan (Free Text) Assessment: follow up with dr mcclure in his office continue home medication new prescription given cipro q12h po for 7 days protonix 40 po bid prednisone tapeer as directed guafenesin activity as tolerated call dr mcclure or go to the emergency room if symptom return or worsening
[2018-05-07 15:32] VITALS: BP 142/83; PULSE 80; TEMP 99.1; O2SAT 97
--- NOTE | 2018-05-07 21:41 | CP.PCM.DIS ---
Provider - Provider Date of Admission: 04/29/18 17:32 Attending physician: Ad Khan MD Consults: 04/29/18 17:42 Pulmonology Consult Stat Comment: Consulting Provider: Rodo Rosado Consulting Physician: Rodo Rosado Reason for Consult: pneumonia 04/30/18 05:20 Inpatient ROUTE AIDE Core Measures Referral Routine Comment: Physician Instructions: Reason For Exam: pmh of COPD 05/02/18 11:10 Physician Consult Routine Comment: Consulting Provider: Jake Keller Consulting Physician: Jake Keller Reason for Consult: persistant throat pain / pt has tache Time Spent in preparation of Discharge (in minutes): 30 Hospital Course - Lab Results Lab Results: Micro Results 04/29/18 15:00 Blood Blood Culture - Final NO GROWTH AFTER 5 DAYS 04/29/18 15:00 Blood Gram Stain - Final TEST NOT PERFORMED 04/29/18 15:30 Blood Blood Culture - Final NO GROWTH AFTER 5 DAYS 04/29/18 15:30 Blood Gram Stain - Final TEST NOT PERFORMED 04/29/18 17:47 Trachasp Gram Stain - Final 04/29/18 17:47 Trachasp Sputum Culture - Final Pseudomonas Aeruginosa Most Recent Lab Values WBC 10.6 K/uL (4.8-10.8) 05/06/18 14:08 RBC 4.59 Mil/uL (3.80-5.20) 05/06/18 14:08 Hgb 11.8 g/dL (11.0-16.0) 05/06/18 14:08 Hct 36.9 % (34.0-47.0) 05/06/18 14:08 MCV 80.4 fL (81.0-99.0) L 05/06/18 14:08 MCH 25.7 pg (27.0-31.0) L 05/06/18 14:08 MCHC 31.9 g/dL (33.0-37.0) L 05/06/18 14:08 RDW 16.1 % (11.5-14.5) H 05/06/18 14:08 Plt Count 170 K/uL (130-400) 05/06/18 14:08 MPV 8.4 fL (7.2-11.7) 05/06/18 14:08 Neut % (Auto) 63.5 % (50.0-75.0) 05/03/18 07:11 Lymph % (Auto) 26.9 % (20.0-40.0) 05/03/18 07:11 [place] % (Auto) 7.8 % (0.0-10.0) 05/03/18 07:11 Eos % (Auto) 1.4 % (0.0-4.0) 05/03/18 07:11 Baso % (Auto) 0.4 % (0.0-2.0) 05/03/18 07:11 Neut # (Auto) 5.2 K/uL (1.8-7.0) 05/03/18 07:11 Lymph # (Auto) 2.2 K/uL (1.0-4.3) 05/03/18 07:11 [place] # (Auto) 0.6 K/uL (0.0-0.8) 05/03/18 07:11 Eos # (Auto) 0.1 K/uL (0.0-0.7) 05/03/18 07:11 Baso # (Auto) 0.0 K/uL (0.0-0.2) 05/03/18 07:11 Sodium 137 mmol/L (132-148) 05/06/18 14:08 Potassium 3.7 mmol/L (3.6-5.2) 05/06/18 14:08 Chloride 98 mmol/L (98-107) 05/06/18 14:08 Carbon Dioxide 32 mmol/L (22-30) H 05/06/18 14:08 Anion Gap 11 (10-20) 05/06/18 14:08 BUN 13 mg/dL (7-17) 05/06/18 14:08 Creatinine 0.8 mg/dL (0.7-1.2) 05/06/18 14:08 Est GFR ( Amer) > 60 05/06/18 14:08 Est GFR (Non-Af Amer) > 60 05/06/18 14:08 POC Glucose (mg/dL) 295 mg/dL (65-110) H 05/07/18 16:20 Random Glucose 197 mg/dL (65-105) H D 05/06/18 14:08 Calcium 8.9 mg/dl (8.6-10.4) 05/06/18 14:08 Total Bilirubin 0.6 mg/dL (0.2-1.3) 04/29/18 15:34 AST 17 U/L (14-36) 04/29/18 15:34 ALT 8 U/L (9-52) L D 04/29/18 15:34 Alkaline Phosphatase 127 U/L (38-126) H D 04/29/18 15:34 NT-Pro-B Natriuret Pep 252 pg/mL (0-900) 04/29/18 15:34 Total Protein 7.9 g/dL (6.3-8.3) 04/29/18 15:34 Albumin 4.3 g/dL (3.5-5.0) 04/29/18 15:34 Globulin 3.7 gm/dL (2.2-3.9) 04/29/18 15:34 Albumin/Globulin Ratio 1.2 (1.0-2.1) 04/29/18 15:34 Urine Color Yellow (YELLOW) 04/29/18 21:44 Urine Clarity Hazy (Clear) 04/29/18 21:44 Urine pH 5.0 (5.0-8.0) 04/29/18 21:44 Ur Specific [place] 1.021 (1.003-1.030) 04/29/18 21:44 Urine Protein Negative mg/dL (NEGATIVE) 04/29/18 21:44 Urine Glucose (UA) Normal mg/dL (Normal) 04/29/18 21:44 Urine Ketones Negative mg/dL (NEGATIVE) 04/29/18 21:44 Urine Blood Negative (NEGATIVE) 04/29/18 21:44 Urine Nitrate Negative (NEGATIVE) 04/29/18 21:44 Urine Bilirubin Negative (NEGATIVE) 04/29/18 21:44 Urine Urobilinogen Normal mg/dL (0.2-1.0) 04/29/18 21:44 Ur Leukocyte Esterase Trace Brian/uL (Negative) 04/29/18 21:44 Urine WBC (Auto) 2 /hpf (0-5) 04/29/18 21:44 Urine RBC (Auto) 1 /hpf (0-3) 04/29/18 21:44 Ur Squamous Epith Cells < 1 /hpf (0-5) 04/29/18 21:44 Urine Bacteria Occ (<OCC) H 04/29/18 21:44 Discharge Exam - Head Exam Head Exam: ATRAUMATIC, NORMAL INSPECTION Discharge Plan - Discharge Medications Prescriptions: Ciprofloxacin HCl [Cipro] 500 mg PO Q12H 7 Days tab Guaifenesin [Guaifenesin ER] 600 mg PO TID #30 tab.er.12h predniSONE [predniSONE Tab] 10 mg PO DAILY #6 tab Pantoprazole [Protonix EC Tab] 40 mg PO BID 30 Days ect - Follow Up Plan Condition: STABLE Disposition: HOME/ ROUTINE Instructions: Ciprofloxacin (Systemic), Pneumonia, Adult (DC), How to Care for a Tracheostomy, Guaifenesin, Pantoprazole, Prednisone Additional Instructions: follow up with dr khan in his office continue home medication new prescription given cipro q12h po for 7 days protonix 40 po bid prednisone tapeer as directed guafenesin activity as tolerated call dr khan or go to the emergency room if symptom return or worsening Referrals: Rodo Rosado MD [Staff Provider] - Jake Keller MD [Staff Provider] - Ad Khan MD [Staff Provider] -
--- NOTE | 2018-05-08 06:32 | DS ---
DISCHARGE DIAGNOSES: 1. Acute tracheobronchitis. 2. Severe gastroesophageal reflux disease. 3. Type 2 diabetes. 4. Exacerbation of bronchial asthma. 5. Hypertension. HISTORY OF PRESENT ILLNESS AND HOSPITAL COURSE: This is a 62-year-old female well known to me with history of tracheostomy; morbid obesity; sleep apnea; hypertension; hyperlipidemia; type 2 diabetes, on insulin; anxiety; and depression. The patient had several admissions. The patient came again with cough, congestion, shortness of breath, wheezing, thick yellow sputum production, chills, rigors, body aches, tiredness, anorexia, malaise, and fatigue. The patient was admitted to the floor. She was started on oxygen nebulizer treatments. Solu-Medrol steroid was tapered down. Sputum cultures were positive for Pseudomonas, sensitive to Cipro, and the patient was given Cipro. The patient has intense pain in her trach site, and she underwent laryngoscopy. The patient underwent upper endoscopy with Dr. Keller; ear, nose, throat doctor. The patient was found to have gastroesophageal reflux disease. The patient was continued on Cipro. She is going home on Cipro. She will be followed up as outpatient. Condition upon discharge is stable. PHYSICAL EXAMINATION: LUNGS: Bilateral inspiratory and expiratory rhonchi. CARDIOVASCULAR SYSTEM: S1 and S2, regular. ABDOMEN: Soft. PLAN: Discharge the patient. Monitor the patient. Ad Khan MD
== END 2018-05-07 17:39 | disposition home or self-care (01) | DRG 96 ==
LOC: C.ER 14:00 → C.9E 17:32 → C.5S 23:45
PROVIDERS: ADMIT Internal Medicine; ATTEND Internal Medicine
PROC: 0CJS8ZZ Inspection of Larynx, Via Natural or Artificial Opening Endoscopic (ICD-10-PCS; principal; 2018-05-03)
DX: J20.9 Acute bronchitis, unspecified (principal); J95.03 Malfunction of tracheostomy stoma; J18.9 Pneumonia, unspecified organism; E11.65 Type 2 diabetes mellitus with hyperglycemia; I11.0 Hypertensive heart disease with heart failure; I50.9 Heart failure, unspecified; J44.0 Chronic obstructive pulmonary disease with (acute) lower respiratory infection; J44.1 Chronic obstructive pulmonary disease with (acute) exacerbation; J45.901 Unspecified asthma with (acute) exacerbation; E66.01 Morbid (severe) obesity due to excess calories; F31.9 Bipolar disorder, unspecified; F41.9 Anxiety disorder, unspecified; G47.30 Sleep apnea, unspecified; K21.9 Gastro-esophageal reflux disease without esophagitis; J34.2 Deviated nasal septum; R13.10 Dysphagia, unspecified; E78.00 Pure hypercholesterolemia, unspecified; E03.9 Hypothyroidism, unspecified; G40.909 Epilepsy, unspecified, not intractable, without status epilepticus; Y83.8 Other surgical procedures as the cause of abnormal reaction of the patient, or of later complication, without mention of misadventure at the time of the procedure; R49.0 Dysphonia

== ENCOUNTER 2018-06-26 19:37 | Inpatient (IN) | payer OTHER ==
[2018-06-26 19:38] VITALS: BMI 47.0
[2018-06-26] MEDS ORDERED: Sodium Chloride 0.9% 1,000 ML IV ONE (20:15)
--- NOTE | 2018-06-26 20:15 | C.PDOC ---
History Of Present Illness Patient with a Hx of COPD with numerous intubations with trach presents with SOB and fever for 2 weeks. Patient took two tylenol at 5pm. Denies nausea, vomiting, or abdominal pain. Time Seen by Provider: 06/26/18 20:14 Chief Complaint (Nursing): Shortness Of Breath History Per: Patient History/Exam Limitations: no limitations Onset/Duration Of Symptoms: Days (2 weeks) Current Symptoms Are (Timing): Still Present Initiating Event: Upper Respiratory Illness Exacerbating Factor(s): Coughing Current Respiratory Medications: See Home Med List Severity: Severe Pain Scale Rating Of: 8 Associated Symptoms: Fever, Other (SOB) Reports Recently: Seen In ED, Treated By A Physician, Hospitalized Recent travel outside of the [place]: No Additional History Per: Patient Past Medical History Reviewed: Historical Data, Nursing Documentation, Vital Signs Vital Signs: Last Vital Signs Temp 99.9 F H 06/26/18 20:02 Pulse 95 H 06/26/18 20:02 Resp 19 06/26/18 20:02 BP 150/105 H 06/26/18 20:02 Pulse Ox 100 06/26/18 20:02 Primary Care Provider: Ren Madden - Medical History PMH: Anxiety, Asthma, Bipolar Disorder, Bronchitis, Cardia Arrhythmia, CHF, COPD, Depression, Emphysema, Gall Bladder Disease, HTN, Pneumonia, Seizures, Sleep Apnea Denies: Arthritis, Deep Vein Thrombosis, HIV, Hypercholesterolemia, Hypothyroidism, Chronic Kidney Disease, Rheumatoid Arthritis, Sexually Transmitted Disease Surgical History: Appendectomy, Cholecystectomy Denies: Pacemaker - [facility] Procedures ASSISTANCE WITH RESPIRATORY VENTILATION, <24 HRS, CPAP (03/14/16) CENTRAL VENOUS CATHETER PLACEMENT WITH GUIDANCE (10/24/14) CHANGE TRACHEOSTOMY DEVICE IN TRACHEA, EXTERNAL APPROACH (04/06/18) CONTINUOUS INVASIVE MECHANICAL VENTILATION <96 CONSEC HRS (03/07/14) DRAINAGE OF LUNG [place], ENDO, DIAGN (11/30/17) ENTERAL INFUSION OF CONCENTRATED NUT. SUBSTANCES (09/17/12) INSERT ENDOTRACHEAL TUBE (09/17/12) INSERTION OF ENDOTRACHEAL AIRWAY INTO TRACHEA, VIA OPENING (06/12/17) INSERTION OF INFUSION DEV INTO SUP VENA CAVA, PERC APPROACH (11/13/17) INSERTION OF INFUSION DEVICE INTO UPPER VEIN, PERC APPROACH (10/04/17) INSPECTION OF LARYNX, ENDO (04/29/18) INTRODUCE OF OTH THERAP SUBST INTO RESP TRACT, VIA OPENING (05/03/15) INTRODUCTION OF NUTRITIONAL INTO UP GI, VIA OPENING (06/12/17) NEBULIZER THERAPY (09/17/12) REMOVAL OF TRACHEOSTOMY DEVICE FROM TRACHEA, INFORMATION AND DATA ARCHITECT ANALYST APPROACH (06/12/17) RESPIRATORY VENTILATION, 24-96 CONSECUTIVE HOURS (11/13/17) RESPIRATORY VENTILATION, GREATER THAN 96 CONSECUTIVE HOURS (02/27/17) RESPIRATORY VENTILATION, LESS THAN 24 CONSECUTIVE HOURS (04/06/18) Family History: States: No Known Family Hx - Social History Hx Tobacco Use: No Hx Alcohol Use: No Hx Substance Use: No - Immunization History Hx Tetanus Toxoid Vaccination: No Hx Influenza Vaccination: No Hx Pneumococcal Vaccination: No Review Of Systems Constitutional: Positive for: Fever. Negative for: Chills Eyes: Negative for: Vision Change Cardiovascular: Negative for: Chest Pain, Palpitations Respiratory: Positive for: Shortness of Breath. Negative for: Cough Gastrointestinal: Negative for: Nausea, Vomiting Genitourinary: Negative for: Dysuria Musculoskeletal: Negative for: Back Pain Skin: Negative for: Rash Neurological: Negative for: Weakness, Numbness Psych: Positive for: Anxiety Physical Exam - Physical Exam Appears: Non-toxic, In Acute Distress Skin: Warm, Dry Head: Normacephalic Eye(s): bilateral: Normal Inspection Oral Mucosa: Dry Neck: Other (Trach with very thick secretions) Chest: Symmetrical, No Tenderness Cardiovascular: Rhythm Regular Respiratory: Decreased Breath Sounds, No Rales, Rhonchi (Scattered), Wheezing Gastrointestinal/Abdominal: Soft, No Tenderness Back: No CVA Tenderness Extremity: Pedal Edema Extremity: Bilateral: Atraumatic Neurological/Psych: Oriented x3 Gait: Unable To Assess ED Course And Treatment - Laboratory Results Result Diagrams: 06/26/18 21:07 06/26/18 21:07 O2 Sat by Pulse Oximetry: 100 Pulse Ox Interpretation: Normal Critical Care Time - Critical Care Note Total Time (in mins): 30 Documented critical care: time excludes all time spent performing seperately billable procedures. Disposition Discussed With : Ad Khan Comment: accepted the pt on his service and took over the care at 9:42 PM Doctor Will See Patient In The: Hospital Counseled Patient/Family Regarding: Studies Performed, Diagnosis - Disposition Disposition: HOSPITALIZED Disposition Time: 20:15 Condition: GUARDED Forms: [facility] ([place]) - POA Present On Arrival: Poor Glycemic Control - Clinical Impression Clinical Impression: Respiratory tract infection, Dyspnea, COPD exacerbation, Tracheostomy complication, Pneumonia - Scribe Statement The provider has reviewed the documentation as recorded by the Scribwilliams Trevizo All medical record entries made by the Scribe were at my direction and personally dictated by me. I have reviewed the chart and agree that the record accurately reflects my personal performance of the history, physical exam, medical decision making, and the department course for this patient. I have also personally directed, reviewed, and agree with the discharge instructions and disposition. Decision To Admit - Pt Status Changed To: Hospital Disposition Of: Observation - . Bed Request Type: Telemetry Admitting Physician: Ad Khan Patient Diagnosis: Respiratory tract infection, Dyspnea, COPD exacerbation, Tracheostomy compli cation, Pneumonia
[2018-06-26 20:41] LABS: ABG ALLEN TEST NEG; ARTERIAL BLOOD GAS HCO3 24.3 mmol/L (21-28); ARTERIAL BLOOD GAS O2 SAT 97.5 % (95-98); ARTERIAL BLOOD GAS PCO2 44 mm/Hg (35-45); ARTERIAL BLOOD GAS PH 7.36 (7.35-7.45); ARTERIAL BLOOD GAS PO2 88 mm/Hg (80-100); ARTERIAL BLOOD GAS TCO2 26.3 mmol/L (22-28)
[2018-06-26] MEDS ORDERED: Vancomycin 1 GM 1 GM/250 ML BAG IVPB STA (20:45)
[2018-06-26] MEDS ORDERED: Gentamicin 360 MG in Sodium Chloride 0.9% 100 ML IVPB STA (20:46)
[2018-06-26 21:10] LABS: BASO # 0.1 K/uL (0.0-0.2); BASO % 0.6 % (0.0-2.0); EOS # 0.1 K/uL (0.0-0.7); EOS % 0.7 % (0.0-4.0); HEMOGLOBIN 11.6 g/dL (11.0-16.0); LYMPH # 4.1 K/uL (1.0-4.3); LYMPH % 26.1 % (20.0-40.0); MEAN CELL VOLUME 75.7 fL (81.0-99.0); MEAN CORPUSCULAR HEMOGLOBIN 25.1 pg (27.0-31.0); MEAN CORPUSCULAR HGB CONC 33.1 g/dL (33.0-37.0); MEAN PLATELET VOLUME 8.2 fL (7.2-11.7); MONO # 0.9 K/uL (0.0-0.8); MONO % 5.9 % (0.0-10.0); NEUT # 10.4 K/uL (1.8-7.0); NEUT % 66.7 % (50.0-75.0); NRBC % 0.1 % (0.0-2.0); RBC 4.64 Mil/uL (3.80-5.20); RED CELL DISTRIBUTION WIDTH 15.5 % (11.5-14.5); WHITE BLOOD COUNT 15.6 K/uL (4.8-10.8)
[2018-06-26 21:19] LABS: PROTHROMBIN TIME 11.3 SECONDS (9.7-12.2)
[2018-06-26 21:24] LABS: ALBUMIN 4.3 g/dL (3.5-5.0); ALT/SGPT 19 U/L (9-52); AST/SGOT 24 U/L (14-36); BLOOD UREA NITROGEN 17 mg/dL (7-17); CALCIUM 9.8 mg/dl (8.6-10.4); GFR NON-AFRICAN AMERICAN > 60
[2018-06-26 21:35] LABS: B-TYPE NATRIURETIC PEPTIDE 131 pg/mL (0-900)
[2018-06-26] MEDS ORDERED: Albuterol-Ipratrop 3 mg / 0.5 (3 ml) UD ONE (21:54)
[2018-06-26] MEDS ORDERED: Vancomycin 1 GM 1 GM/250 ML BAG IVPB ONE (22:01)
[2018-06-26] MEDS: Albuterol-Ipratrop 3 mg / 0.5 (3 ml) UD IH SCH (22:30)
[2018-06-27] MEDS ORDERED: methylPREDNISolone 40 MG in Sodium Chloride 0.9% 100 ML IVPB SCH (00:30)
[2018-06-27] MEDS: Vancomycin 1 gm/NS 200 ml 1 GM/200 ML BAG IVPB SCH ×2 (01:30→11:57)
[2018-06-27] MEDS: Aztreonam 2 GM in Sodium Chloride 0.9% 100 ML IVPB SCH ×3 (02:01→16:59)
[2018-06-27] MEDS: QUEtiapine 200 mg XR Tab PO SCH ×3 (02:02→22:09)
[2018-06-27] MEDS: MethylPREDNISolone 40 mg Vial IV SCH ×3 (02:03→16:58)
[2018-06-27] MEDS: Oxycodone/Acetaminophen 5/325 mg Tab PO PRN ×4 (02:03→20:21)
[2018-06-27] MEDS: Albuterol-Ipratrop 3 mg / 0.5 (3 ml) UD INH SCH ×5 (03:20→20:02)
[2018-06-27] MEDS: (Novolin R) Insulin Human Regular 100 units/ml vial SC SCH ×4 (06:58→21:23)
[2018-06-27] MEDS: Enoxaparin 40 mg Syringe SC SCH (09:39)
[2018-06-27] MEDS: Pantoprazole 20 mg EC Tab PO SCH ×2 (09:39→17:02)
[2018-06-27] MEDS: guaiFENesin 600 mg ER Tab PO SCH ×3 (09:40→16:59)
--- NOTE | 2018-06-27 10:58 | CARD ---
APPROVED REPORT Date of service: 06/26/2018 EKG Measurement Heart [id number] CT [id number] <Conclusion> Normal sinus rhythm Septal infarct, age undetermined Abnormal ECG
--- NOTE | 2018-06-27 11:01 | RAD ---
Chest x-ray single frontal view HISTORY: Shortness of breath. COMPARISON: 04/29/2018 FINDINGS: Patchy consolidative opacity projecting over right upper to mid lung zone concerning for infiltrate. Additional patchy consolidative changes in the left hilar region extending to the infrahilar region also concerning for possible infiltrate. Venous congestion. Cardiomegaly. Tracheostomy tube in place. Bilateral hilar prominence. Degenerative changes in the spine. Calcific tendinopathy of the right proximal humerus. Impression: Patchy consolidative opacity projecting over right upper to mid lung zone concerning for infiltrate. Additional patchy consolidative changes in the left hilar region extending to the infrahilar region also concerning for possible infiltrate. Venous congestion. Cardiomegaly. Tracheostomy tube in place. Bilateral hilar prominence. Degenerative changes in the spine. Calcific tendinopathy of the right proximal humerus.
--- NOTE | 2018-06-27 17:36 | CP.PCM.CON ---
History of Present Illness - History of Present Illness History of Present Illness: Reason for consultation: Cough and shortness of breath Patient is a 62 year old femal with h/o COPD, tracheostomy, CHF, HTN, DM, Sleep apnea syndrome, siezure disorder, anxiety, depression pression presented to the ED with c/o congestion, SOB, and fever at home. Patient seen and examined at bedside, afebrile. ROS: diffcult to assess due to non-verbal patient PMH:COPD, tracheostomy, CHF, HTN, DM, Sleep apnea syndrome, siezure disorder, anxiety, depression Surgical:Appedectomy. Cholecystectomy. Social:Denies Review of Systems - Review of Systems Systems not reviewed;Unavailable: Other (Status post tracheostomy) Past Patient History - Infectious Disease Hx of Infectious Diseases: None - Tetanus Immunizations Tetanus Immunization: Unknown - Past Medical History & Family History Past Medical History?: Yes - Past Social History Smoking Status: Unknown If Ever Smoked - CARDIAC Hx Cardia Arrhythmia: Yes Hx Congestive Heart Failure: Yes Hx Hypercholesterolemia: No Hx Hypertension: Yes Hx Pacemaker: No - PULMONARY Hx Asthma: Yes Hx Bronchitis: Yes Hx Chronic Obstructive Pulmonary Disease (COPD): Yes Hx Emphysema: Yes Hx Pneumonia: Yes Hx Sleep Apnea: Yes - NEUROLOGICAL Hx Seizures: Yes - HEENT Hx HEENT Problems: Yes Hx Cataracts: Yes - RENAL Hx Chronic Kidney Disease: No - ENDOCRINE/METABOLIC Hx Hypothyroidism: No - HEMATOLOGICAL/ONCOLOGICAL Hx Human Immunodeficiency Virus (HIV): No - INTEGUMENTARY Hx Dermatological Problems: No - MUSCULOSKELETAL/RHEUMATOLOGICAL Hx Arthritis: No Hx Rheumatoid Arthritis: No - GASTROINTESTINAL Hx Gall Bladder Disease: Yes - GENITOURINARY/GYNECOLOGICAL Hx Sexually Transmitted Disorders: No - PSYCHIATRIC Hx Anxiety: Yes Hx Bipolar Disorder: Yes Hx Depression: Yes Hx Substance Use: No - SURGICAL HISTORY Hx Appendectomy: Yes Hx Cholecystectomy: Yes - ANESTHESIA Hx Anesthesia: Yes Hx Anesthesia Reactions: No Hx Malignant Hyperthermia: No Meds Allergies/Adverse Reactions: Allergies Allergy/AdvReac Type Severity Reaction Status Date / Time aspirin Allergy ANAPHYLAXIS Verified 04/05/18 23:11 ceftriaxone sodium Allergy ANAPHYLAXIS Verified 04/05/18 23:11 [From Rocephin] ibuprofen [From Motrin] Allergy ANAPHYLAXIS Verified 04/05/18 23:11 iodine Allergy ANAPHYLAXIS Verified 04/05/18 23:11 raspberry Allergy ANAPHYLAXIS Verified 04/05/18 23:11 - Medications Medications: Current Medications Acetaminophen (Tylenol 325mg Tab) 650 mg PO Q6H PRN PRN Reason: Pain, Mild (1-3) Last Admin: 06/27/18 02:02 Dose: 650 mg Albuterol/Ipratropium (Duoneb 3 Mg/0.5 Mg (3 Ml) Ud) 3 ml INH RQ4 [facility] Last Admin: 06/27/18 11:08 Dose: 3 ml Benzonatate (Tessalon Perles) 100 mg PO BID [facility] Last Admin: 06/27/18 16:59 Dose: 100 mg Enoxaparin Sodium (Lovenox) 40 mg SC DAILY [facility] Last Admin: 06/27/18 09:39 Dose: 40 mg Gabapentin (Neurontin) 800 mg PO TID [facility] Last Admin: 06/27/18 16:59 Dose: 800 mg Guaifenesin (Mucinex La) 600 mg PO TID [facility] Last Admin: 06/27/18 16:59 Dose: 600 mg Aztreonam 2 gm/ Sodium (Chloride) 100 mls @ 100 mls/hr IVPB Q8H [facility]; Protocol Last Admin: 06/27/18 16:59 Dose: 100 mls/hr Vancomycin/Sodium Chloride (Vancomycin 1 Gm/Ns 200 Ml) 1 gm in 200 mls @ 133 mls/hr IVPB Q12H [facility]; Protocol Stop: 07/02/18 00:31 Last Admin: 06/27/18 11:57 Dose: 133 mls/hr Insulin Glargine (Lantus) 17 unit SC HS [facility] Insulin Human Regular (Novolin R) 0 unit SC ACHS [facility]; Protocol Last Admin: 06/27/18 16:58 Dose: 6 units Lorazepam (Ativan) 2 mg PO Q12H PRN PRN Reason: Anxiety Methylprednisolone (Solu-Medrol) 40 mg IV Q8H [facility] Last Admin: 06/27/18 16:58 Dose: 40 mg Montelukast Sodium (Singulair) 10 mg PO HS [facility] Oxycodone/Acetaminophen (Percocet 5/325 Mg Tab) 1 tab PO Q4H PRN PRN Reason: Pain, severe (8-10) Stop: 06/30/18 00:18 Last Admin: 06/27/18 16:59 Dose: 1 tab Pantoprazole Sodium (Protonix Ec Tab) 40 mg PO BID [facility] Last Admin: 06/27/18 17:02 Dose: 40 mg Quetiapine Fumarate (Seroquel Xr) 400 mg PO Q12 [facility] Last Admin: 06/27/18 09:40 Dose: 400 mg Sertraline HCl (Zoloft) 100 mg PO BID [facility] Last Admin: 06/27/18 17:00 Dose: 100 mg Trazodone HCl (Desyrel) 150 mg PO [facility] Physical Exam - Head Exam Head Exam: ATRAUMATIC, NORMOCEPHALIC - ENT Exam ENT Exam: Mucous Membranes Moist - Neck Exam Neck exam: Positive for: Normal Inspection - Respiratory Exam Respiratory Exam: Rhonchi, Wheezes - Cardiovascular Exam Cardiovascular Exam: REGULAR RHYTHM - GI/Abdominal Exam GI & Abdominal Exam: Normal Bowel Sounds, Soft - Neurological Exam Neurological exam: Alert Results - Vital Signs Recent Vital Signs: Last Vital Signs Temp 98.9 F 06/27/18 15:00 Pulse 89 06/27/18 15:00 Resp 20 06/27/18 15:00 BP 139/73 06/27/18 15:00 Pulse Ox 98 06/27/18 15:00 - Labs Result Diagrams: 06/26/18 21:07 06/26/18 21:07 Labs: Laboratory Results - last 24 hr 06/26/18 06/26/18 06/26/18 20:35 21:07 21:07 WBC 15.6 H RBC 4.64 Hgb 11.6 Hct 35.1 MCV 75.7 L D MCH 25.1 L MCHC 33.1 RDW 15.5 H Plt Count 159 MPV 8.2 Neut % (Auto) 66.7 Lymph % (Auto) 26.1 Emmet % (Auto) 5.9 Eos % (Auto) 0.7 Baso % (Auto) 0.6 Neut # (Auto) 10.4 H Lymph # (Auto) 4.1 Emmet # (Auto) 0.9 H Eos # (Auto) 0.1 Baso # (Auto) 0.1 PT 11.3 INR 1.0 APTT 41.0 H Puncture Site Rbrachial pCO2 44 pO2 88 HCO3 24.3 ABG pH 7.36 ABG Total CO2 26.3 ABG O2 Saturation 97.5 ABG Base Excess -0.8 Rob Test Neg ABG Potassium 3.8 A-a O2 Difference 71.0 Respiratory Index 0.8 Sodium 142.0 Chloride 110.0 H Glucose 150 H Lactate 1.2 Vent Mode Trach collar FiO2 30.0 Potassium Carbon Dioxide Anion Gap BUN Creatinine Est GFR ( Amer) Est GFR (Non-Af Amer) POC Glucose (mg/dL) Random Glucose Calcium Magnesium Total Bilirubin AST ALT Alkaline Phosphatase Troponin I NT-Pro-B Natriuret Pep Total Protein Albumin Globulin Albumin/Globulin Ratio Arterial Blood Potassium 3.8 06/26/18 06/27/18 06/27/18 21:07 01:57 06:32 WBC RBC Hgb Hct MCV MCH MCHC RDW Plt Count MPV Neut % (Auto) Lymph % (Auto) Emmet % (Auto) Eos % (Auto) Baso % (Auto) Neut # (Auto) Lymph # (Auto) Emmet # (Auto) Eos # (Auto) Baso # (Auto) PT INR APTT Puncture Site pCO2 pO2 HCO3 ABG pH ABG Total CO2 ABG O2 Saturation ABG Base Excess Rob Test ABG Potassium A-a O2 Difference Respiratory Index Sodium 142 Chloride 103 Glucose Lactate Vent Mode FiO2 Potassium 4.0 Carbon Dioxide 25 Anion Gap 18 BUN 17 Creatinine 0.9 Est GFR ( Amer) > 60 Est GFR (Non-Af Amer) > 60 POC Glucose (mg/dL) 323 H 402 H* Random Glucose 171 H Calcium 9.8 Magnesium 1.8 Total Bilirubin 0.4 AST 24 ALT 19 Alkaline Phosphatase 152 H Troponin I < 0.0120 NT-Pro-B Natriuret Pep 131 Total Protein 8.7 H Albumin 4.3 Globulin 4.4 H Albumin/Globulin Ratio 1.0 Arterial Blood Potassium 06/27/18 06/27/18 12:48 16:32 WBC RBC Hgb Hct MCV MCH MCHC RDW Plt Count MPV Neut % (Auto) Lymph % (Auto) Emmet % (Auto) Eos % (Auto) Baso % (Auto) Neut # (Auto) Lymph # (Auto) Emmet # (Auto) Eos # (Auto) Baso # (Auto) PT INR APTT Puncture Site pCO2 pO2 HCO3 ABG pH ABG Total CO2 ABG O2 Saturation ABG Base Excess Rob Test ABG Potassium A-a O2 Difference Respiratory Index Sodium Chloride Glucose Lactate Vent Mode FiO2 Potassium Carbon Dioxide Anion Gap BUN Creatinine Est GFR ( Amer) Est GFR (Non-Af Amer) POC Glucose (mg/dL) 319 H 307 H Random Glucose Calcium Magnesium Total Bilirubin AST ALT Alkaline Phosphatase Troponin I NT-Pro-B Natriuret Pep Total Protein Albumin Globulin Albumin/Globulin Ratio Arterial Blood Potassium Assessment & Plan (1) COPD exacerbation Status: Acute (2) Pneumonia Status: Acute (3) Tracheobronchitis Status: Acute Priority: High
--- NOTE | 2018-06-27 21:36 | CP.PCM.HP ---
Present on Admission - Present on Admission Any Indicators Present on Admission: No Past Patient History - Infectious Disease Hx of Infectious Diseases: None - Tetanus Immunizations Tetanus Immunization: Unknown - Past Medical History & Family History Past Medical History?: Yes - Past Social History Smoking Status: Unknown If Ever Smoked - CARDIAC Hx Cardia Arrhythmia: Yes Hx Congestive Heart Failure: Yes Hx Hypercholesterolemia: No Hx Hypertension: Yes Hx Pacemaker: No - PULMONARY Hx Asthma: Yes Hx Bronchitis: Yes Hx Chronic Obstructive Pulmonary Disease (COPD): Yes Hx Emphysema: Yes Hx Pneumonia: Yes Hx Sleep Apnea: Yes - NEUROLOGICAL Hx Seizures: Yes - HEENT Hx HEENT Problems: Yes Hx Cataracts: Yes - RENAL Hx Chronic Kidney Disease: No - ENDOCRINE/METABOLIC Hx Hypothyroidism: No - HEMATOLOGICAL/ONCOLOGICAL Hx Human Immunodeficiency Virus (HIV): No - INTEGUMENTARY Hx Dermatological Problems: No - MUSCULOSKELETAL/RHEUMATOLOGICAL Hx Arthritis: No Hx Rheumatoid Arthritis: No - GASTROINTESTINAL Hx Gall Bladder Disease: Yes - GENITOURINARY/GYNECOLOGICAL Hx Sexually Transmitted Disorders: No - PSYCHIATRIC Hx Anxiety: Yes Hx Bipolar Disorder: Yes Hx Depression: Yes Hx Substance Use: No - SURGICAL HISTORY Hx Appendectomy: Yes Hx Cholecystectomy: Yes - ANESTHESIA Hx Anesthesia: Yes Hx Anesthesia Reactions: No Hx Malignant Hyperthermia: No Meds Allergies/Adverse Reactions: Allergies Allergy/AdvReac Type Severity Reaction Status Date / Time aspirin Allergy ANAPHYLAXIS Verified 04/05/18 23:11 ceftriaxone sodium Allergy ANAPHYLAXIS Verified 04/05/18 23:11 [From Rocephin] ibuprofen [From Motrin] Allergy ANAPHYLAXIS Verified 04/05/18 23:11 iodine Allergy ANAPHYLAXIS Verified 04/05/18 23:11 raspberry Allergy ANAPHYLAXIS Verified 04/05/18 23:11 Results - Vital Signs Recent Vital Signs: Last Vital Signs Temp 98.9 F 06/27/18 15:00 Pulse 89 06/27/18 15:00 Resp 20 06/27/18 15:00 BP 139/73 06/27/18 15:00 Pulse Ox 98 06/27/18 18:00 - Labs Result Diagrams: 06/26/18 21:07 06/26/18 21:07 Labs: Laboratory Results - last 24 hr 06/27/18 06/27/18 06/27/18 01:57 06:32 12:48 POC Glucose (mg/dL) 323 H 402 H* 319 H 06/27/18 06/27/18 16:32 21:17 POC Glucose (mg/dL) 307 H 269 H
[2018-06-27] MEDS: (Lantus) Insulin Glargine, Recombinant SC SCH (22:09)
[2018-06-28] MEDS: MethylPREDNISolone 40 mg Vial IV SCH ×3 (00:34→16:52)
[2018-06-28] MEDS: Vancomycin 1 gm/NS 200 ml 1 GM/200 ML BAG IVPB SCH ×2 (00:34→11:37)
[2018-06-28] MEDS: Aztreonam 2 GM in Sodium Chloride 0.9% 100 ML IVPB SCH ×3 (00:34→16:52)
[2018-06-28] MEDS: Albuterol-Ipratrop 3 mg / 0.5 (3 ml) UD INH SCH ×6 (00:54→20:16)
[2018-06-28] MEDS: Oxycodone/Acetaminophen 5/325 mg Tab PO PRN ×2 (06:38→16:53)
[2018-06-28] MEDS: (Novolin R) Insulin Human Regular 100 units/ml vial SC SCH ×4 (08:24→21:53)
--- NOTE | 2018-06-28 08:30 | CP.PCM.HP ---
History of Present Illness - History of Present Illness History of Present Illness: 62 y/o with cough, congestion, sob fever, wheezing, chest pain, chest congestion, weakness, Present on Admission - Present on Admission Any Indicators Present on Admission: No Review of Systems - Review of Systems Systems not reviewed;Unavailable: Respiratory Distress - Constitutional Constitutional: Chills, Headache, Night Sweats, Snoring - EENT Eyes: absent: Diplopia, Pain, Sees Flashes, Spots in Vision Ears: absent: Other Nose/Mouth/Throat: Hoarsness, Sore Throat, Throat Swelling - Breasts Breasts: absent: Pain, Nipple Discharge - Cardiovascular Cardiovascular: Dyspnea, Palpitations, Pedal Edema - Respiratory Respiratory: Cough, Dyspnea, Dyspnea on Exertion, Chest Congestion, Pain with Coughing - Gastrointestinal Gastrointestinal: Bloating - Musculoskeletal Musculoskeletal: Arthralgias, Back Pain - Integumentary Integumentary: Dry Skin Past Patient History - Infectious Disease Hx of Infectious Diseases: None - Tetanus Immunizations Tetanus Immunization: Unknown - Past Medical History & Family History Past Medical History?: Yes - Past Social History Smoking Status: Unknown If Ever Smoked - CARDIAC Hx Cardia Arrhythmia: Yes Hx Congestive Heart Failure: Yes Hx Hypercholesterolemia: No Hx Hypertension: Yes Hx Pacemaker: No - PULMONARY Hx Asthma: Yes Hx Bronchitis: Yes Hx Chronic Obstructive Pulmonary Disease (COPD): Yes Hx Emphysema: Yes Hx Pneumonia: Yes Hx Sleep Apnea: Yes - NEUROLOGICAL Hx Seizures: Yes - HEENT Hx HEENT Problems: Yes Hx Cataracts: Yes - RENAL Hx Chronic Kidney Disease: No - ENDOCRINE/METABOLIC Hx Hypothyroidism: No - HEMATOLOGICAL/ONCOLOGICAL Hx Human Immunodeficiency Virus (HIV): No - INTEGUMENTARY Hx Dermatological Problems: No - MUSCULOSKELETAL/RHEUMATOLOGICAL Hx Arthritis: No Hx Rheumatoid Arthritis: No - GASTROINTESTINAL Hx Gall Bladder Disease: Yes - GENITOURINARY/GYNECOLOGICAL Hx Sexually Transmitted Disorders: No - PSYCHIATRIC Hx Anxiety: Yes Hx Bipolar Disorder: Yes Hx Depression: Yes Hx Substance Use: No - SURGICAL HISTORY Hx Appendectomy: Yes Hx Cholecystectomy: Yes - ANESTHESIA Hx Anesthesia: Yes Hx Anesthesia Reactions: No Hx Malignant Hyperthermia: No Meds Allergies/Adverse Reactions: Allergies Allergy/AdvReac Type Severity Reaction Status Date / Time aspirin Allergy ANAPHYLAXIS Verified 04/05/18 23:11 ceftriaxone sodium Allergy ANAPHYLAXIS Verified 04/05/18 23:11 [From Rocephin] ibuprofen [From Motrin] Allergy ANAPHYLAXIS Verified 04/05/18 23:11 iodine Allergy ANAPHYLAXIS Verified 04/05/18 23:11 raspberry Allergy ANAPHYLAXIS Verified 04/05/18 23:11 Physical Exam - Constitutional Appears: In Acute Distress - Head Exam Head Exam: ATRAUMATIC, NORMAL INSPECTION, NORMOCEPHALIC - Eye Exam Eye Exam: PERRL - ENT Exam ENT Exam: Mucous Membranes Moist, Normal Exam, Normal Oropharynx - Neck Exam Neck exam: Positive for: Normal Inspection - Respiratory Exam Respiratory Exam: Decreased Breath Sounds, Rales, Rhonchi, Wheezes, Respiratory Distress - Cardiovascular Exam Cardiovascular Exam: REGULAR RHYTHM, +S1, +S2 - GI/Abdominal Exam GI & Abdominal Exam: Normal Bowel Sounds, Soft - Rectal Exam Rectal Exam: NORMAL INSPECTION - Exam Exam: NORMAL INSPECTION - Extremities Exam Extremities exam: Positive for: normal capillary refill, pedal edema, pedal pulses present - Neurological Exam Neurological exam: Alert, CN II-XII Intact, Normal Gait, Oriented x3, Reflexes Normal - Psychiatric Exam Psychiatric exam: Anxious, Depressed, Flat Affect Results - Vital Signs Recent Vital Signs: Last Vital Signs Temp 98.1 F 06/28/18 07:00 Pulse 66 06/28/18 07:13 Resp 20 06/28/18 07:00 BP 108/60 06/28/18 07:00 Pulse Ox 95 06/28/18 07:00 - Labs Result Diagrams: 06/26/18 21:07 06/26/18 21:07 Labs: Laboratory Results - last 24 hr 06/27/18 06/27/18 06/27/18 12:48 16:32 21:17 POC Glucose (mg/dL) 319 H 307 H 269 H 06/28/18 06:54 POC Glucose (mg/dL) 314 H Assessment & Plan - Assessment and Plan (Free Text) Assessment: PNA TRACHE HTN DM DEPRESSION SEE ORDERS - Date & Time Date: 06/27/18 Time: 14:00
[2018-06-28] MEDS: Pantoprazole 20 mg EC Tab PO SCH ×2 (10:20→17:08)
[2018-06-28] MEDS: QUEtiapine 200 mg XR Tab PO SCH ×2 (10:20→21:54)
[2018-06-28] MEDS: guaiFENesin 600 mg ER Tab PO SCH ×3 (10:20→17:08)
[2018-06-28] MEDS: Enoxaparin 40 mg Syringe SC SCH (10:21)
--- NOTE | 2018-06-28 12:32 | CP.PCM.PN ---
Subjective - Date & Time of Evaluation Date of Evaluation: 06/28/18 Time of Evaluation: 11:00 - Subjective Subjective: Patient seen and examined Still complaining of shortness of breath and cough Afebrile Objective - Vital Signs/Intake and Output Vital Signs (last 24 hours): Temp Pulse Resp BP Pulse Ox 98.1 F 66 20 108/60 95 06/28/18 07:00 06/28/18 07:13 06/28/18 07:00 06/28/18 07:00 06/28/18 07:00 - Medications Medications: Current Medications Acetaminophen (Tylenol 325mg Tab) 650 mg PO Q6H PRN PRN Reason: Pain, Mild (1-3) Last Admin: 06/27/18 02:02 Dose: 650 mg Albuterol/Ipratropium (Duoneb 3 Mg/0.5 Mg (3 Ml) Ud) 3 ml INH RQ4 [facility] Last Admin: 06/28/18 11:03 Dose: 3 ml Benzonatate (Tessalon Perles) 100 mg PO BID [facility] Last Admin: 06/28/18 10:20 Dose: 100 mg Enoxaparin Sodium (Lovenox) 40 mg SC DAILY [facility] Last Admin: 06/28/18 10:21 Dose: 40 mg Gabapentin (Neurontin) 800 mg PO TID [facility] Last Admin: 06/28/18 10:20 Dose: 800 mg Guaifenesin (Mucinex La) 600 mg PO TID [facility] Last Admin: 06/28/18 10:20 Dose: 600 mg Aztreonam 2 gm/ Sodium (Chloride) 100 mls @ 100 mls/hr IVPB Q8H [facility]; Protocol Last Admin: 06/28/18 08:24 Dose: 100 mls/hr Vancomycin/Sodium Chloride (Vancomycin 1 Gm/Ns 200 Ml) 1 gm in 200 mls @ 133 mls/hr IVPB Q12H [facility]; Protocol Stop: 07/02/18 00:31 Last Admin: 06/28/18 11:37 Dose: 133 mls/hr Insulin Glargine (Lantus) 17 unit SC HS [facility] Last Admin: 06/27/18 22:09 Dose: 17 unit Insulin Human Regular (Novolin R) 0 unit SC ACHS [facility]; Protocol Last Admin: 06/28/18 08:24 Dose: 6 units Lorazepam (Ativan) 2 mg PO Q12H PRN PRN Reason: Anxiety Methylprednisolone (Solu-Medrol) 40 mg IV Q8H [facility] Last Admin: 06/28/18 08:24 Dose: 40 mg Montelukast Sodium (Singulair) 10 mg PO [facility] Last Admin: 06/27/18 22:09 Dose: 10 mg Oxycodone/Acetaminophen (Percocet 5/325 Mg Tab) 2 tab PO Q4H PRN PRN Reason: Pain, severe (8-10) Stop: 06/30/18 19:56 Last Admin: 06/28/18 06:38 Dose: 2 tab Pantoprazole Sodium (Protonix Ec Tab) 40 mg PO BID [facility] Last Admin: 06/28/18 10:20 Dose: 40 mg Quetiapine Fumarate (Seroquel Xr) 400 mg PO Q12 [facility] Last Admin: 06/28/18 10:20 Dose: 400 mg Sertraline HCl (Zoloft) 100 mg PO BID [facility] Last Admin: 06/28/18 10:20 Dose: 100 mg Trazodone HCl (Desyrel) 150 mg PO [facility] Last Admin: 06/27/18 22:09 Dose: 150 mg - Labs Labs: 06/26/18 21:07 06/26/18 21:07 PT 11.3 SECONDS (9.7-12.2) 06/26/18 21:07 INR 1.0 06/26/18 21:07 APTT 41.0 SECONDS (21-34) H 06/26/18 21:07 - Head Exam Head Exam: ATRAUMATIC, NORMOCEPHALIC - ENT Exam ENT Exam: Mucous Membranes Moist - Neck Exam Neck Exam: Normal Inspection - Respiratory Exam Respiratory Exam: Rhonchi, Wheezes - Cardiovascular Exam Cardiovascular Exam: REGULAR RHYTHM - GI/Abdominal Exam GI & Abdominal Exam: Soft, Normal Bowel Sounds - Extremities Exam Extremities Exam: Normal Inspection - Neurological Exam Neurological Exam: Alert, Oriented x3 Assessment and Plan (1) COPD exacerbation Assessment & Plan: Continue nebulizer treatment, IV steroids and antibiotics Trach care Pulmonary toilet Status: Acute (2) Pneumonia Status: Acute (3) Tracheobronchitis Status: Acute
[2018-06-28 14:56] LABS: SQUAMOUS EPITHIAL < 1 /hpf (0-5); URINE BACTERIA RARE (<OCC); URINE BILIRUBIN NEGATIVE (NEGATIVE); URINE BLOOD NEGATIVE (NEGATIVE); URINE CLARITY Clear (Clear); URINE COLOR Yellow (YELLOW); URINE GLUCOSE (UA) 3+ mg/dL (Normal); URINE LEUKOCYTE ESTERASE NEG Leu/uL (Negative); URINE PROTEIN NEGATIVE (NEGATIVE); URINE UROBILINOGEN NORMAL mg/dL (0.2-1.0)
[2018-06-28] MEDS: (Lantus) Insulin Glargine, Recombinant SC SCH (21:53)
--- NOTE | 2018-06-28 22:15 | CP.PCM.PN ---
Subjective - Date & Time of Evaluation Date of Evaluation: 06/28/18 Time of Evaluation: 17:20 - Subjective Subjective: dict Objective - Vital Signs/Intake and Output Vital Signs (last 24 hours): Temp Pulse Resp BP Pulse Ox 98.4 F 74 20 150/77 98 06/28/18 15:00 06/28/18 20:16 06/28/18 15:00 06/28/18 15:00 06/28/18 15:00 Intake and Output: 06/28/18 06/29/18 18:59 06:59 Intake Total 400 Balance 400 - Medications Medications: Current Medications Acetaminophen (Tylenol 325mg Tab) 650 mg PO Q6H PRN PRN Reason: Pain, Mild (1-3) Last Admin: 06/27/18 02:02 Dose: 650 mg Albuterol/Ipratropium (Duoneb 3 Mg/0.5 Mg (3 Ml) Ud) 3 ml INH RQ4 [facility] Last Admin: 06/28/18 20:16 Dose: 3 ml Benzonatate (Tessalon Perles) 100 mg PO BID [facility] Last Admin: 06/28/18 17:08 Dose: 100 mg Enoxaparin Sodium (Lovenox) 40 mg SC DAILY [facility] Last Admin: 06/28/18 10:21 Dose: 40 mg Gabapentin (Neurontin) 800 mg PO TID [facility] Last Admin: 06/28/18 17:08 Dose: 800 mg Guaifenesin (Mucinex La) 600 mg PO TID [facility] Last Admin: 06/28/18 17:08 Dose: 600 mg Aztreonam 2 gm/ Sodium (Chloride) 100 mls @ 100 mls/hr IVPB Q8H [facility]; Protocol Last Admin: 06/28/18 16:52 Dose: 100 mls/hr Vancomycin/Sodium Chloride (Vancomycin 1 Gm/Ns 200 Ml) 1 gm in 200 mls @ 133 mls/hr IVPB Q12H [facility]; Protocol Stop: 07/02/18 00:31 Last Admin: 06/28/18 11:37 Dose: 133 mls/hr Insulin Glargine (Lantus) 17 unit SC HS [facility] Last Admin: 06/28/18 21:53 Dose: 17 unit Insulin Human Regular (Novolin R) 0 unit SC ACHS [facility]; Protocol Last Admin: 06/28/18 21:53 Dose: 2 units Lorazepam (Ativan) 2 mg PO Q12H PRN PRN Reason: Anxiety Methylprednisolone (Solu-Medrol) 40 mg IV Q8H [facility] Last Admin: 06/28/18 16:52 Dose: 40 mg Montelukast Sodium (Singulair) 10 mg PO [facility] Last Admin: 06/28/18 21:54 Dose: 10 mg Morphine Sulfate (Morphine) 2 mg IVP Q4 PRN PRN Reason: Pain, severe (8-10) Last Admin: 06/28/18 20:10 Dose: 2 mg Pantoprazole Sodium (Protonix Ec Tab) 40 mg PO BID [facility] Last Admin: 06/28/18 17:08 Dose: 40 mg Quetiapine Fumarate (Seroquel Xr) 400 mg PO Q12 [facility] Last Admin: 06/28/18 21:54 Dose: 400 mg Sertraline HCl (Zoloft) 100 mg PO BID [facility] Last Admin: 06/28/18 17:09 Dose: 100 mg Trazodone HCl (Desyrel) 150 mg PO [facility] Last Admin: 06/28/18 21:54 Dose: 150 mg - Labs Labs: 06/26/18 21:07 06/26/18 21:07 PT 11.3 SECONDS (9.7-12.2) 06/26/18 21:07 INR 1.0 06/26/18 21:07 APTT 41.0 SECONDS (21-34) H 06/26/18 21:07
[2018-06-29] MEDS: Albuterol-Ipratrop 3 mg / 0.5 (3 ml) UD INH SCH ×6 (00:26→19:49)
[2018-06-29] MEDS: Aztreonam 2 GM in Sodium Chloride 0.9% 100 ML IVPB SCH ×4 (00:30→23:45)
[2018-06-29] MEDS: Vancomycin 1 gm/NS 200 ml 1 GM/200 ML BAG IVPB SCH ×3 (00:35→23:45)
[2018-06-29] MEDS: MethylPREDNISolone 40 mg Vial IV SCH ×4 (01:23→23:47)
--- NOTE | 2018-06-29 02:26 | PN ---
DATE: 06/28/2018 SUBJECTIVE: The patient is still coughing, congested. She has chest pain upon coughing, back pain and body pain. No nausea or vomiting. She is tolerating diet. She is on antibiotics. She is afebrile, seen by Pulmonary. PHYSICAL EXAMINATION: VITAL SIGNS: Blood pressure 150/77, pulse 74, respiratory rate 20, temperature 98.4. LUNGS: Decreased air entry, positive scattered rales and rhonchi. CARDIOVASCULAR SYSTEM: S1 and S2, regular. ABDOMEN: Soft and nontender. Bowel sounds are positive. ASSESSMENT: 1. Complicated pneumonia with the patient having tracheostomy. 2. Diabetes. 3. Hypertension. 4. Depression. PLAN: Antibiotics. Pulmonary followup. Monitor the patient. Ad Khan MD
[2018-06-29] MEDS: (Novolin R) Insulin Human Regular 100 units/ml vial SC SCH ×4 (08:29→21:21)
[2018-06-29 09:01] LABS: BASO % 0.1 % (0.0-2.0); BLOOD UREA NITROGEN 24 mg/dL (7-17); CALCIUM 9.4 mg/dl (8.6-10.4); GFR NON-AFRICAN AMERICAN > 60; HEMOGLOBIN 10.9 g/dL (11.0-16.0); LYMPH # 1.1 K/uL (1.0-4.3); LYMPH % 10.4 % (20.0-40.0); MEAN CORPUSCULAR HEMOGLOBIN 25.4 pg (27.0-31.0); MEAN CORPUSCULAR HGB CONC 32.3 g/dL (33.0-37.0); MEAN PLATELET VOLUME 8.7 fL (7.2-11.7); MONO # 0.4 K/uL (0.0-0.8); MONO % 3.6 % (0.0-10.0); NEUT # 9.2 K/uL (1.8-7.0); NEUT % 85.9 % (50.0-75.0); RBC 4.28 Mil/uL (3.80-5.20); RED CELL DISTRIBUTION WIDTH 15.5 % (11.5-14.5); WHITE BLOOD COUNT 10.7 K/uL (4.8-10.8)
[2018-06-29 09:05] LABS: MEAN CELL VOLUME 78.7 fL (81.0-99.0)
[2018-06-29] MEDS: QUEtiapine 200 mg XR Tab PO SCH ×2 (09:21→21:39)
[2018-06-29] MEDS: Pantoprazole 20 mg EC Tab PO SCH ×2 (09:21→17:03)
[2018-06-29] MEDS: Enoxaparin 40 mg Syringe SC SCH (09:21)
[2018-06-29] MEDS: guaiFENesin 600 mg ER Tab PO SCH ×3 (09:28→17:03)
--- NOTE | 2018-06-29 14:22 | CP.PCM.PN ---
Subjective - Date & Time of Evaluation Date of Evaluation: 06/29/18 Time of Evaluation: 11:00 - Subjective Subjective: Patient seen and examined Condition improving with less cough Afebrile No chest pain Continue antibiotics Continue nebulizer treatment and steroids Objective - Vital Signs/Intake and Output Vital Signs (last 24 hours): Temp Pulse Resp BP Pulse Ox 98.1 F 58 L 20 126/80 97 06/29/18 07:00 06/29/18 12:20 06/29/18 07:00 06/29/18 07:00 06/29/18 07:00 Intake and Output: 06/29/18 06/29/18 06:59 18:59 Intake Total 400 Balance 400 - Medications Medications: Current Medications Acetaminophen (Tylenol 325mg Tab) 650 mg PO Q6H PRN PRN Reason: Pain, Mild (1-3) Last Admin: 06/27/18 02:02 Dose: 650 mg Albuterol/Ipratropium (Duoneb 3 Mg/0.5 Mg (3 Ml) Ud) 3 ml INH RQ4 [facility] Last Admin: 06/29/18 07:50 Dose: 3 ml Benzonatate (Tessalon Perles) 100 mg PO BID [facility] Last Admin: 06/29/18 09:21 Dose: 100 mg Enoxaparin Sodium (Lovenox) 40 mg SC DAILY [facility] Last Admin: 06/29/18 09:21 Dose: 40 mg Gabapentin (Neurontin) 800 mg PO TID [facility] Last Admin: 06/29/18 13:01 Dose: 800 mg Guaifenesin (Mucinex La) 600 mg PO TID [facility] Last Admin: 06/29/18 13:01 Dose: 600 mg Aztreonam 2 gm/ Sodium (Chloride) 100 mls @ 100 mls/hr IVPB Q8H [facility]; Protocol Last Admin: 06/29/18 08:14 Dose: 100 mls/hr Vancomycin/Sodium Chloride (Vancomycin 1 Gm/Ns 200 Ml) 1 gm in 200 mls @ 133 mls/hr IVPB Q12H [facility]; Protocol Stop: 07/02/18 00:31 Last Admin: 06/29/18 12:29 Dose: 133 mls/hr Insulin Glargine (Lantus) [address] [facility] Last Admin: 06/28/18 21:53 Dose: 17 unit Insulin Human Regular (Novolin R) 0 unit SC [facility]; Protocol Last Admin: 06/29/18 12:30 Dose: 6 units Lorazepam (Ativan) 2 mg PO Q12H PRN PRN Reason: Anxiety Methylprednisolone (Solu-Medrol) 40 mg IV Q8H [facility] Last Admin: 06/29/18 08:14 Dose: 40 mg Montelukast Sodium (Singulair) 10 mg PO HS [facility] Last Admin: 06/28/18 21:54 Dose: 10 mg Morphine Sulfate (Morphine) 2 mg IVP Q4 PRN PRN Reason: Pain, severe (8-10) Last Admin: 06/29/18 11:07 Dose: 2 mg Pantoprazole Sodium (Protonix Ec Tab) 40 mg PO BID [facility] Last Admin: 06/29/18 09:21 Dose: 40 mg Quetiapine Fumarate (Seroquel Xr) 400 mg PO Q12 [facility] Last Admin: 06/29/18 09:21 Dose: 400 mg Sertraline HCl (Zoloft) 100 mg PO BID [facility] Last Admin: 06/29/18 09:21 Dose: 100 mg Trazodone HCl (Desyrel) [address] [facility] Last Admin: 06/28/18 21:54 Dose: 150 mg - Labs Labs: 06/29/18 08:30 06/29/18 08:30 PT 11.3 SECONDS (9.7-12.2) 06/26/18 21:07 INR 1.0 06/26/18 21:07 APTT 41.0 SECONDS (21-34) H 06/26/18 21:07 Assessment and Plan (1) COPD exacerbation Status: Acute (2) Pneumonia Status: Acute (3) Tracheobronchitis Status: Acute
[2018-06-29] MEDS: (Lantus) Insulin Glargine, Recombinant SC SCH (21:21)
[2018-06-30] MEDS: (Novolin R) Insulin Human Regular 100 units/ml vial SC SCH ×5 (02:13→21:14)
[2018-06-30] MEDS: Albuterol-Ipratrop 3 mg / 0.5 (3 ml) UD INH SCH ×4 (07:58→19:28)
[2018-06-30] MEDS: MethylPREDNISolone 40 mg Vial IV SCH ×3 (08:27→23:52)
[2018-06-30] MEDS: guaiFENesin 600 mg ER Tab PO SCH ×3 (09:36→17:24)
[2018-06-30] MEDS: Enoxaparin 40 mg Syringe SC SCH (09:36)
[2018-06-30] MEDS: QUEtiapine 200 mg XR Tab PO SCH ×2 (09:36→21:15)
[2018-06-30] MEDS: Pantoprazole 20 mg EC Tab PO SCH ×2 (09:37→17:24)
--- NOTE | 2018-06-30 13:27 | CP.PCM.PN ---
Subjective - Date & Time of Evaluation Date of Evaluation: 06/30/18 Time of Evaluation: 13:24 - Subjective Subjective: Pulmonary follow up, Covering Dr Rosado The Patient was seen and examined at the bedside, Medical records reviewed, and management issues were discussed and formulated with the house staff. Events reviewed Reason for consultation: Cough and shortness of breath Mrs Moser is a 62 year old Femal with PMHx of CHF, HTN, DM, Sleep apnea syndrome, siezure disorder, anxiety, depression, COPD and S/P tracheostomy Who presented to the ED with complaint of congestion, SOB, and fever at home. Patient is Alert, awake and oriented x3 Comfortable, in no apparent distress Breathing much better Afebrile Objective - Vital Signs/Intake and Output Vital Signs (last 24 hours): Temp Pulse Resp BP Pulse Ox 98 F 72 20 131/80 97 06/30/18 07:00 06/30/18 12:48 06/30/18 07:00 06/30/18 07:00 06/30/18 07:00 Intake and Output: 06/30/18 06/30/18 06:59 18:59 Intake Total 800 Balance 800 - Medications Medications: Current Medications Acetaminophen (Tylenol 325mg Tab) 650 mg PO Q6H PRN PRN Reason: Pain, Mild (1-3) Last Admin: 06/27/18 02:02 Dose: 650 mg Albuterol/Ipratropium (Duoneb 3 Mg/0.5 Mg (3 Ml) Ud) 3 ml INH RQ4 [facility] Last Admin: 06/30/18 11:25 Dose: 3 ml Benzonatate (Tessalon Perles) 100 mg PO BID [facility] Last Admin: 06/30/18 09:37 Dose: 100 mg Enoxaparin Sodium (Lovenox) 40 mg SC DAILY [facility] Last Admin: 06/30/18 09:36 Dose: 40 mg Gabapentin (Neurontin) 800 mg PO TID [facility] Last Admin: 06/30/18 13:00 Dose: 800 mg Guaifenesin (Mucinex La) 600 mg PO TID [facility] Last Admin: 06/30/18 13:00 Dose: 600 mg Insulin Glargine (Lantus) 17 unit SC HS [facility] Last Admin: 06/29/18 21:21 Dose: 17 unit Insulin Human Regular (Novolin R) 0 unit SC A[facility]S [facility]; Protocol Last Admin: 06/30/18 12:30 Dose: 6 units Lorazepam (Ativan) 2 mg PO Q12H PRN PRN Reason: Anxiety Methylprednisolone (Solu-Medrol) 40 mg IV Q8H [facility] Last Admin: 06/30/18 08:27 Dose: 40 mg Montelukast Sodium (Singulair) 10 mg PO [facility] Last Admin: 06/29/18 21:39 Dose: 10 mg Morphine Sulfate (Morphine) 2 mg IVP Q4 PRN PRN Reason: Pain, severe (8-10) Last Admin: 06/30/18 08:30 Dose: 2 mg Pantoprazole Sodium (Protonix Ec Tab) 40 mg PO BID [facility] Last Admin: 06/30/18 09:37 Dose: 40 mg Quetiapine Fumarate (Seroquel Xr) 400 mg PO Q12 [facility] Last Admin: 06/30/18 09:36 Dose: 400 mg Sertraline HCl (Zoloft) 100 mg PO BID [facility] Last Admin: 06/30/18 09:37 Dose: 100 mg Trazodone HCl (Desyrel) 150 mg PO [facility] Last Admin: 06/29/18 21:39 Dose: 150 mg - Labs Labs: 06/29/18 08:30 06/29/18 08:30 PT 11.3 SECONDS (9.7-12.2) 06/26/18 21:07 INR 1.0 06/26/18 21:07 APTT 41.0 SECONDS (21-34) H 06/26/18 21:07 - Constitutional Appears: Well, Non-toxic - Head Exam Head Exam: ATRAUMATIC, NORMAL INSPECTION - Eye Exam Eye Exam: Conjunctival injection, EOMI, Normal appearance - ENT Exam ENT Exam: Mucous Membranes Moist - Neck Exam Neck Exam: absent: Lymphadenopathy, Meningismus, Normal Inspection (Tracheostomy site clean, intact) - Respiratory Exam Respiratory Exam: Chest Wall Tenderness, Decreased Breath Sounds, Prolonged Expiratory Phase. absent: Accessory Muscle Use, Rales, Rhonchi, Wheezes, Respiratory Distress - Cardiovascular Exam Cardiovascular Exam: REGULAR RHYTHM, +S1, +S2. absent: Murmur - GI/Abdominal Exam GI & Abdominal Exam: Soft, Normal Bowel Sounds. absent: Tenderness Assessment and Plan (1) Tracheobronchitis Status: Acute (2) COPD exacerbation Status: Acute (3) Dyspnea Status: Acute (4) Tracheostomy complication Status: Chronic - Assessment and Plan (Free Text) Assessment: Continue antibiotics Continue nebulizer treatment and steroids
[2018-06-30] MEDS: Aztreonam 2 GM in Sodium Chloride 0.9% 100 ML IVPB SCH ×2 (13:54→21:22)
[2018-06-30] MEDS: Vancomycin 1 gm/NS 200 ml 1 GM/200 ML BAG IVPB SCH (15:52)
[2018-06-30] MEDS: (Lantus) Insulin Glargine, Recombinant SC SCH (21:14)
--- NOTE | 2018-06-30 22:22 | CP.PCM.PN ---
Subjective - Date & Time of Evaluation Date of Evaluation: 06/30/18 Time of Evaluation: 07:00 - Subjective Subjective: dict Objective - Vital Signs/Intake and Output Vital Signs (last 24 hours): Temp Pulse Resp BP Pulse Ox 98.4 F 64 20 133/73 96 06/30/18 15:00 06/30/18 20:30 06/30/18 15:00 06/30/18 15:00 06/30/18 15:00 Intake and Output: 06/30/18 07/01/18 18:59 06:59 Intake Total 700 Balance 700 - Medications Medications: Current Medications Acetaminophen (Tylenol 325mg Tab) 650 mg PO Q6H PRN PRN Reason: Pain, Mild (1-3) Last Admin: 06/27/18 02:02 Dose: 650 mg Albuterol/Ipratropium (Duoneb 3 Mg/0.5 Mg (3 Ml) Ud) 3 ml INH RQ4 [facility] Last Admin: 06/30/18 19:28 Dose: 3 ml Benzonatate (Tessalon Perles) 100 mg PO BID [facility] Last Admin: 06/30/18 17:24 Dose: 100 mg Enoxaparin Sodium (Lovenox) 40 mg SC DAILY [facility] Last Admin: 06/30/18 09:36 Dose: 40 mg Gabapentin (Neurontin) 800 mg PO TID [facility] Last Admin: 06/30/18 17:24 Dose: 800 mg Guaifenesin (Mucinex La) 600 mg PO TID [facility] Last Admin: 06/30/18 17:24 Dose: 600 mg Aztreonam 2 gm/ Sodium (Chloride) 100 mls @ 100 mls/hr IVPB Q8H [facility]; Protocol Stop: 07/03/18 13:31 Last Admin: 06/30/18 21:22 Dose: 100 mls/hr Vancomycin/Sodium Chloride (Vancomycin 1 Gm/Ns 200 Ml) 1 gm in 200 mls @ 133.333 mls/hr IVPB Q12H [facility]; Protocol Stop: 07/03/18 16:01 Last Admin: 06/30/18 15:52 Dose: 133.333 mls/hr Insulin Glargine (Lantus) 17 unit SC HS [facility] Last Admin: 06/30/18 21:14 Dose: 17 unit Insulin Human Regular (Novolin R) 0 unit SC ACHS [facility]; Protocol Last Admin: 06/30/18 21:14 Dose: 2 units Lorazepam (Ativan) 2 mg PO Q12H PRN PRN Reason: Anxiety Methylprednisolone (Solu-Medrol) 40 mg IV Q8H [facility] Last Admin: 06/30/18 17:24 Dose: 40 mg Montelukast Sodium (Singulair) 10 mg PO HS [facility] Last Admin: 06/30/18 21:15 Dose: 10 mg Morphine Sulfate (Morphine) 2 mg IVP Q4 PRN PRN Reason: Pain, severe (8-10) Last Admin: 06/30/18 18:14 Dose: 2 mg Pantoprazole Sodium (Protonix Ec Tab) 40 mg PO BID [facility] Last Admin: 06/30/18 17:24 Dose: 40 mg Quetiapine Fumarate (Seroquel Xr) 400 mg PO Q12 [facility] Last Admin: 06/30/18 21:15 Dose: 400 mg Sertraline HCl (Zoloft) 100 mg PO BID [facility] Last Admin: 06/30/18 17:24 Dose: 100 mg Trazodone HCl (Desyrel) 150 mg PO [facility] Last Admin: 06/30/18 21:15 Dose: 150 mg - Labs Labs: 06/29/18 08:30 06/29/18 08:30 PT 11.3 SECONDS (9.7-12.2) 06/26/18 21:07 INR 1.0 06/26/18 21:07 APTT 41.0 SECONDS (21-34) H 06/26/18 21:07
--- NOTE | 2018-06-30 22:22 | CP.PCM.PN ---
Subjective - Date & Time of Evaluation Date of Evaluation: 06/29/18 Time of Evaluation: 07:00 - Subjective Subjective: dict Objective - Vital Signs/Intake and Output Vital Signs (last 24 hours): Temp Pulse Resp BP Pulse Ox 98.4 F 64 20 133/73 96 06/30/18 15:00 06/30/18 20:30 06/30/18 15:00 06/30/18 15:00 06/30/18 15:00 Intake and Output: 06/30/18 07/01/18 18:59 06:59 Intake Total 700 Balance 700 - Medications Medications: Current Medications Acetaminophen (Tylenol 325mg Tab) 650 mg PO Q6H PRN PRN Reason: Pain, Mild (1-3) Last Admin: 06/27/18 02:02 Dose: 650 mg Albuterol/Ipratropium (Duoneb 3 Mg/0.5 Mg (3 Ml) Ud) 3 ml INH RQ4 [facility] Last Admin: 06/30/18 19:28 Dose: 3 ml Benzonatate (Tessalon Perles) 100 mg PO BID [facility] Last Admin: 06/30/18 17:24 Dose: 100 mg Enoxaparin Sodium (Lovenox) 40 mg SC DAILY [facility] Last Admin: 06/30/18 09:36 Dose: 40 mg Gabapentin (Neurontin) 800 mg PO TID [facility] Last Admin: 06/30/18 17:24 Dose: 800 mg Guaifenesin (Mucinex La) 600 mg PO TID [facility] Last Admin: 06/30/18 17:24 Dose: 600 mg Aztreonam 2 gm/ Sodium (Chloride) 100 mls @ 100 mls/hr IVPB Q8H [facility]; Protocol Stop: 07/03/18 13:31 Last Admin: 06/30/18 21:22 Dose: 100 mls/hr Vancomycin/Sodium Chloride (Vancomycin 1 Gm/Ns 200 Ml) 1 gm in 200 mls @ 133.333 mls/hr IVPB Q12H [facility]; Protocol Stop: 07/03/18 16:01 Last Admin: 06/30/18 15:52 Dose: 133.333 mls/hr Insulin Glargine (Lantus) 17 unit SC HS [facility] Last Admin: 06/30/18 21:14 Dose: 17 unit Insulin Human Regular (Novolin R) 0 unit SC ACHS [facility]; Protocol Last Admin: 06/30/18 21:14 Dose: 2 units Lorazepam (Ativan) 2 mg PO Q12H PRN PRN Reason: Anxiety Methylprednisolone (Solu-Medrol) 40 mg IV Q8H [facility] Last Admin: 06/30/18 17:24 Dose: 40 mg Montelukast Sodium (Singulair) 10 mg PO HS [facility] Last Admin: 06/30/18 21:15 Dose: 10 mg Morphine Sulfate (Morphine) 2 mg IVP Q4 PRN PRN Reason: Pain, severe (8-10) Last Admin: 06/30/18 18:14 Dose: 2 mg Pantoprazole Sodium (Protonix Ec Tab) 40 mg PO BID [facility] Last Admin: 06/30/18 17:24 Dose: 40 mg Quetiapine Fumarate (Seroquel Xr) 400 mg PO Q12 [facility] Last Admin: 06/30/18 21:15 Dose: 400 mg Sertraline HCl (Zoloft) 100 mg PO BID [facility] Last Admin: 06/30/18 17:24 Dose: 100 mg Trazodone HCl (Desyrel) 150 mg PO [facility] Last Admin: 06/30/18 21:15 Dose: 150 mg - Labs Labs: 06/29/18 08:30 06/29/18 08:30 PT 11.3 SECONDS (9.7-12.2) 06/26/18 21:07 INR 1.0 06/26/18 21:07 APTT 41.0 SECONDS (21-34) H 06/26/18 21:07
[2018-07-01] MEDS: Albuterol-Ipratrop 3 mg / 0.5 (3 ml) UD INH SCH ×5 (01:21→19:39)
--- NOTE | 2018-07-01 01:57 | PN ---
DATE: 06/30/2018 SUBJECTIVE: The patient is still coughing, wheezing, congested, ands she has chest pain and back pain upon deep coughing. No fever. On antibiotics. PHYSICAL EXAMINATION: VITAL SIGNS: Blood pressure 128/79, pulse 58, respiratory rate 20, temperature 98.1. LUNGS: Bilateral decreased air entry. Positive rales and rhonchi. CARDIOVASCULAR SYSTEM: S1 and S2, regular. ABDOMEN: Soft. ASSESSMENT: 1. Pneumonia. 2. Bronchial asthma exacerbation. 3. Diabetes. 4. Hypertension. PLAN: Continue antibiotics, Accu-Check sliding scale. Pulmonary followup. Monitor patient. Ad Khan MD
--- NOTE | 2018-07-01 01:59 | PN ---
DATE: 06/30/2018 SUBJECTIVE: The patient is congested, coughing, wheezing. She has chest pain upon deep inspiration. PHYSICAL EXAMINATION: VITAL SIGNS: Blood pressure 153/73, pulse 63, respiratory rate 20, temperature 98.1. LUNGS: Bilateral inspiratory and expiratory rhonchi. CARDIOVASCULAR SYSTEM: S1 and S2. Regular. ABDOMEN: Soft. ASSESSMENT: 1. Tracheobronchitis/pneumonia. 2. Diabetes. 3. Hypertension. 4. Exacerbation of asthma. PLAN: Continue current medication. Monitor patient. Ad Khan MD
[2018-07-01] MEDS: Vancomycin 1 gm/NS 200 ml 1 GM/200 ML BAG IVPB SCH ×2 (04:24→16:25)
[2018-07-01] MEDS: Aztreonam 2 GM in Sodium Chloride 0.9% 100 ML IVPB SCH ×3 (06:05→21:41)
[2018-07-01] MEDS: (Novolin R) Insulin Human Regular 100 units/ml vial SC SCH ×4 (08:32→21:40)
[2018-07-01] MEDS: MethylPREDNISolone 40 mg Vial IV SCH ×2 (08:33→16:25)
[2018-07-01] MEDS: QUEtiapine 200 mg XR Tab PO SCH ×2 (10:36→21:40)
[2018-07-01] MEDS: guaiFENesin 600 mg ER Tab PO SCH ×2 (10:43→21:40)
[2018-07-01] MEDS: Pantoprazole 20 mg EC Tab PO SCH ×2 (10:43→18:37)
[2018-07-01] MEDS: Enoxaparin 40 mg Syringe SC SCH (10:44)
--- NOTE | 2018-07-01 11:52 | CP.PCM.PN ---
Subjective - Date & Time of Evaluation Date of Evaluation: 07/01/18 Time of Evaluation: 10:00 - Subjective Subjective: Patient seen and examined Still complaining off productive cough Afebrile Objective - Vital Signs/Intake and Output Vital Signs (last 24 hours): Temp Pulse Resp BP Pulse Ox 97.9 F 75 20 154/81 H 100 07/01/18 07:15 07/01/18 10:35 07/01/18 07:15 07/01/18 10:35 07/01/18 07:15 Intake and Output: 07/01/18 07/01/18 06:59 18:59 Intake Total 700 Balance 700 - Medications Medications: Current Medications Acetaminophen (Tylenol 325mg Tab) 650 mg PO Q6H PRN PRN Reason: Pain, Mild (1-3) Last Admin: 06/27/18 02:02 Dose: 650 mg Albuterol/Ipratropium (Duoneb 3 Mg/0.5 Mg (3 Ml) Ud) 3 ml INH RQ4 [facility] Last Admin: 07/01/18 11:31 Dose: 3 ml Benzonatate (Tessalon Perles) 100 mg PO BID [facility] Last Admin: 07/01/18 10:43 Dose: 100 mg Enoxaparin Sodium (Lovenox) 40 mg SC DAILY [facility] Last Admin: 07/01/18 10:44 Dose: 40 mg Gabapentin (Neurontin) 800 mg PO TID [facility] Last Admin: 07/01/18 10:43 Dose: 800 mg Guaifenesin (Mucinex La) 600 mg PO TID [facility] Last Admin: 07/01/18 10:43 Dose: 600 mg Aztreonam 2 gm/ Sodium (Chloride) 100 mls @ 100 mls/hr IVPB Q8H [facility]; Protocol Stop: 07/03/18 13:31 Last Admin: 07/01/18 06:05 Dose: 100 mls/hr Vancomycin/Sodium Chloride (Vancomycin 1 Gm/Ns 200 Ml) 1 gm in 200 mls @ 133.333 mls/hr IVPB Q12H [facility]; Protocol Stop: 07/03/18 16:01 Last Admin: 07/01/18 04:24 Dose: 133.333 mls/hr Insulin Glargine (Lantus) 17 unit SC [facility] Last Admin: 06/30/18 21:14 Dose: 17 unit Insulin Human Regular (Novolin R) 0 unit SC ACHS [facility]; Protocol Last Admin: 07/01/18 08:32 Dose: 4 units Lorazepam (Ativan) 2 mg PO Q12H PRN PRN Reason: Anxiety Methylprednisolone (Solu-Medrol) 40 mg IV Q8H [facility] Last Admin: 07/01/18 08:33 Dose: 40 mg Montelukast Sodium (Singulair) 10 mg PO [facility] Last Admin: 06/30/18 21:15 Dose: 10 mg Morphine Sulfate (Morphine) 2 mg IVP Q4 PRN PRN Reason: Pain, severe (8-10) Last Admin: 07/01/18 08:33 Dose: 2 mg Pantoprazole Sodium (Protonix Ec Tab) 40 mg PO BID [facility] Last Admin: 07/01/18 10:43 Dose: 40 mg Quetiapine Fumarate (Seroquel Xr) 400 mg PO Q12 [facility] Last Admin: 07/01/18 10:36 Dose: 400 mg Sertraline HCl (Zoloft) 100 mg PO BID [facility] Last Admin: 07/01/18 10:43 Dose: 100 mg Trazodone HCl (Desyrel) 150 mg PO [facility] Last Admin: 06/30/18 21:15 Dose: 150 mg - Labs Labs: 06/29/18 08:30 06/29/18 08:30 PT 11.3 SECONDS (9.7-12.2) 06/26/18 21:07 INR 1.0 06/26/18 21:07 APTT 41.0 SECONDS (21-34) H 06/26/18 21:07 - Head Exam Head Exam: ATRAUMATIC, NORMOCEPHALIC - ENT Exam ENT Exam: Mucous Membranes Moist - Neck Exam Neck Exam: Normal Inspection - Respiratory Exam Respiratory Exam: Rhonchi, Wheezes - Cardiovascular Exam Cardiovascular Exam: REGULAR RHYTHM - GI/Abdominal Exam GI & Abdominal Exam: Soft, Normal Bowel Sounds Assessment and Plan (1) COPD exacerbation Assessment & Plan: ccontinue nebulizer treatment and antibiotics ContinueIV steroids Pulmonary toilet Tracheostomy care Status: Acute (2) Pneumonia Status: Acute (3) Tracheobronchitis Status: Acute
[2018-07-01] MEDS ORDERED: Promethazine/Cod 6.25mg-10mg/5ml Syr UD PO ONE (12:00)
[2018-07-01] MEDS: guaiFENesin 200 mg/10 ml Syrup UD PO PRN (14:20)
[2018-07-01] MEDS: (Lantus) Insulin Glargine, Recombinant SC SCH (21:40)
--- NOTE | 2018-07-01 22:33 | CP.PCM.PN ---
Subjective - Date & Time of Evaluation Date of Evaluation: 07/01/18 Time of Evaluation: 07:00 - Subjective Subjective: dict Objective - Vital Signs/Intake and Output Vital Signs (last 24 hours): Temp Pulse Resp BP Pulse Ox 98.1 F 73 20 136/76 95 07/01/18 15:00 07/01/18 15:00 07/01/18 15:00 07/01/18 15:00 07/01/18 15:00 Intake and Output: 07/01/18 07/02/18 18:59 06:59 Intake Total 700 Balance 700 - Medications Medications: Current Medications Acetaminophen (Tylenol 325mg Tab) 650 mg PO Q6H PRN PRN Reason: Pain, Mild (1-3) Last Admin: 06/27/18 02:02 Dose: 650 mg Albuterol/Ipratropium (Duoneb 3 Mg/0.5 Mg (3 Ml) Ud) 3 ml INH RQ4 [facility] Last Admin: 07/01/18 19:39 Dose: 3 ml Enoxaparin Sodium (Lovenox) 40 mg SC DAILY [facility] Last Admin: 07/01/18 10:44 Dose: 40 mg Gabapentin (Neurontin) 800 mg PO TID [facility] Last Admin: 07/01/18 18:37 Dose: 800 mg Guaifenesin (Robitussin) 200 mg PO Q4H PRN PRN Reason: Cough and congestion Last Admin: 07/01/18 14:20 Dose: 200 mg Guaifenesin (Mucinex La) 600 mg PO Q12H [facility] Last Admin: 07/01/18 21:40 Dose: 600 mg Aztreonam 2 gm/ Sodium (Chloride) 100 mls @ 100 mls/hr IVPB Q8H [facility]; Protocol Stop: 07/03/18 13:31 Last Admin: 07/01/18 21:41 Dose: 100 mls/hr Vancomycin/Sodium Chloride (Vancomycin 1 Gm/Ns 200 Ml) 1 gm in 200 mls @ 133.333 mls/hr IVPB Q12H [facility]; Protocol Stop: 07/03/18 16:01 Last Admin: 07/01/18 16:25 Dose: 133.333 mls/hr Insulin Glargine (Lantus) 17 unit SC [facility] Last Admin: 07/01/18 21:40 Dose: 17 unit Insulin Human Regular (Novolin R) 0 unit SC [facility]; Protocol Last Admin: 07/01/18 21:40 Dose: 8 units Lorazepam (Ativan) 2 mg PO Q12H PRN PRN Reason: Anxiety Methylprednisolone (Solu-Medrol) 40 mg IV Q8H [facility] Last Admin: 07/01/18 16:25 Dose: 40 mg Montelukast Sodium (Singulair) 10 mg PO HS [facility] Last Admin: 07/01/18 21:40 Dose: 10 mg Morphine Sulfate (Morphine) 2 mg IVP Q4 PRN PRN Reason: Pain, severe (8-10) Last Admin: 07/01/18 18:37 Dose: 2 mg Pantoprazole Sodium (Protonix Ec Tab) 40 mg PO BID [facility] Last Admin: 07/01/18 18:37 Dose: 40 mg Quetiapine Fumarate (Seroquel Xr) 400 mg PO Q12 [facility] Last Admin: 07/01/18 21:40 Dose: 400 mg Sertraline HCl (Zoloft) 100 mg PO BID [facility] Last Admin: 07/01/18 18:43 Dose: 100 mg Trazodone HCl (Desyrel) 150 mg PO HS [facility] Last Admin: 07/01/18 21:40 Dose: 150 mg - Labs Labs: 06/29/18 08:30 06/29/18 08:30 PT 11.3 SECONDS (9.7-12.2) 06/26/18 21:07 INR 1.0 06/26/18 21:07 APTT 41.0 SECONDS (21-34) H 06/26/18 21:07
[2018-07-02] MEDS: Albuterol-Ipratrop 3 mg / 0.5 (3 ml) UD INH SCH ×6 (00:47→19:38)
[2018-07-02] MEDS: Vancomycin 1 gm/NS 200 ml 1 GM/200 ML BAG IVPB SCH (04:00)
--- NOTE | 2018-07-02 04:30 | PN ---
DATE: 07/01/2018 SUBJECTIVE: The patient is feeling better, less cough, less shortness of breath, less wheezing. She is on antibiotic. Afebrile. PHYSICAL EXAMINATION: VITAL SIGNS: Blood pressure 136/76, pulse 73, respiratory rate 20, temperature 98.1. LUNGS: Bilateral scattered rhonchi. CARDIOVASCULAR SYSTEM: S1 and S2, regular. ABDOMEN: Soft and nontender. Bowel sounds are positive. ASSESSMENT: 1. Pneumonia. 2. Bronchial asthma exacerbation. 3. Hypertension. 4. Type 2 diabetes. PLAN: Continue current medications. Monitor the patient. Ad Khan MD
[2018-07-02] MEDS: Aztreonam 2 GM in Sodium Chloride 0.9% 100 ML IVPB SCH ×3 (06:42→22:02)
[2018-07-02] MEDS: MethylPREDNISolone 40 mg Vial IV SCH ×3 (06:53→22:02)
[2018-07-02 08:37] LABS: BASO % 0.2 % (0.0-2.0); EOS # 0.1 K/uL (0.0-0.7); EOS % 0.5 % (0.0-4.0); LYMPH # 1.7 K/uL (1.0-4.3); LYMPH % 15.6 % (20.0-40.0); MEAN CELL VOLUME 78.1 fL (81.0-99.0); MEAN CORPUSCULAR HEMOGLOBIN 26.9 pg (27.0-31.0); MEAN CORPUSCULAR HGB CONC 34.5 g/dL (33.0-37.0); MEAN PLATELET VOLUME 8.3 fL (7.2-11.7); MONO # 0.7 K/uL (0.0-0.8); MONO % 6.5 % (0.0-10.0); NEUT # 8.4 K/uL (1.8-7.0); NEUT % 77.2 % (50.0-75.0); RBC 4.44 Mil/uL (3.80-5.20); RED CELL DISTRIBUTION WIDTH 15.5 % (11.5-14.5); WHITE BLOOD COUNT 10.9 K/uL (4.8-10.8)
[2018-07-02 08:50] LABS: BLOOD UREA NITROGEN 24 mg/dL (7-17); CALCIUM 9.5 mg/dl (8.6-10.4); GFR NON-AFRICAN AMERICAN 57
[2018-07-02] MEDS: (Novolin R) Insulin Human Regular 100 units/ml vial SC SCH ×4 (09:21→22:04)
[2018-07-02] MEDS: QUEtiapine 200 mg XR Tab PO SCH ×2 (10:58→22:01)
[2018-07-02] MEDS: guaiFENesin 600 mg ER Tab PO SCH ×2 (11:00→22:01)
[2018-07-02] MEDS: Pantoprazole 20 mg EC Tab PO SCH ×2 (11:00→17:17)
[2018-07-02] MEDS: Enoxaparin 40 mg Syringe SC SCH (11:00)
--- NOTE | 2018-07-02 13:07 | RAD ---
Date of service: 07/02/2018 HISTORY: Follow COMPARISON: 06/26/2018 TECHNIQUE: Chest PA and lateral views FINDINGS: LUNGS: Lung volumes lower limits of normal. The prior patchy right upper lobe infiltrate is no longer seen as extensive as it was before a superior patchy infiltrate component of it may still persist. However summation of asymmetrical right 1st rib coaster cartilaginous junctional calcifications and/or increased sclerosis of this right 1st rib could also simulate this appearance. The inferior aspect of this prior patchy right upper lobe opacity has cleared. There is a thin wedge-like opacity in the left infrahilar location similar to that before-some subsegmental atelectasis and or scarring here is compatible with this. No interval areas of new infiltrate are seen. The lateral view is markedly limited-lung volumes severely shallow in this projection. Under penetrated technique in the lateral view as well. Large body habitus noted likely adding to the limited exam. Tracheostomy tube in place. PLEURA: No significant pleural effusion identified. No pneumothorax apparent. CARDIOVASCULAR: There is presence of aortic atherosclerotic calcification on x-ray. Minimal cardiomegaly suspect. Probable minimal pulmonary venous congestion-possibly in part chronic. Crowding due to shallow inspiration accentuating this appearance. OSSEOUS STRUCTURES: Bilateral shoulder arthrosis. Right calcific rotator cuff tendinopathy and/or calcific bursitis. Similar appearing VISUALIZED UPPER ABDOMEN: Normal. OTHER FINDINGS: None. IMPRESSION: Interval improvement/partial clearance of the prior patchy coalescent right upper lobe opacity-the residual that is still perceived may be coaster cartilaginous junctional asymmetrical calcifications and/or asymmetrical sclerosis in the right anterior 1st rib. To assess for any residual underlying opacity and or pathology here separate from bony or cartilaginous basis consider follow-up CT chest noncontrast study Comments: Study marked for PA review .
[2018-07-02] MEDS: guaiFENesin 200 mg/10 ml Syrup UD PO PRN (14:00)
--- NOTE | 2018-07-02 15:26 | CP.PCM.PN ---
Subjective - Date & Time of Evaluation Date of Evaluation: 07/02/18 Time of Evaluation: 13:00 - Subjective Subjective: Patient seen and examined Lying comfortably in no distress but still complaining of cough, wheezing and shortness of breath Afebrile patient is awake and responsive Objective - Vital Signs/Intake and Output Vital Signs (last 24 hours): Temp Pulse Resp BP Pulse Ox 97.6 F 64 19 132/84 98 07/02/18 08:19 07/02/18 08:19 07/02/18 08:19 07/02/18 08:19 07/02/18 08:19 Intake and Output: 07/02/18 07/02/18 06:59 18:59 Intake Total 800 Balance 800 - Medications Medications: Current Medications Acetaminophen (Tylenol 325mg Tab) 650 mg PO Q6H PRN PRN Reason: Pain, Mild (1-3) Last Admin: 06/27/18 02:02 Dose: 650 mg Albuterol/Ipratropium (Duoneb 3 Mg/0.5 Mg (3 Ml) Ud) 3 ml INH RQ4 [facility] Last Admin: 07/02/18 13:48 Dose: 3 ml Enoxaparin Sodium (Lovenox) 40 mg SC DAILY [facility] Last Admin: 07/02/18 11:00 Dose: 40 mg Gabapentin (Neurontin) 800 mg PO TID [facility] Last Admin: 07/02/18 14:00 Dose: 800 mg Guaifenesin (Robitussin) 200 mg PO Q4H PRN PRN Reason: Cough and congestion Last Admin: 07/02/18 14:00 Dose: 200 mg Guaifenesin (Mucinex La) 600 mg PO Q12H [facility] Last Admin: 07/02/18 11:00 Dose: 600 mg Aztreonam 2 gm/ Sodium (Chloride) 100 mls @ 100 mls/hr IVPB Q8H [facility]; Protocol Stop: 07/03/18 13:31 Last Admin: 07/02/18 13:11 Dose: 100 mls/hr Vancomycin/Sodium Chloride (Vancomycin 1 Gm/Ns 200 Ml) 1 gm in 200 mls @ 133.333 mls/hr IVPB Q12H [facility]; Protocol Stop: 07/03/18 16:01 Last Admin: 07/02/18 04:00 Dose: Not Given Insulin Glargine (Lantus) 17 unit SC HS [facility] Last Admin: 07/01/18 21:40 Dose: 17 unit Insulin Human Regular (Novolin R) 0 unit SC [facility]; Protocol Last Admin: 07/02/18 13:11 Dose: 10 units Lorazepam (Ativan) 2 mg PO Q12H PRN PRN Reason: Anxiety Methylprednisolone (Solu-Medrol) 40 mg IV Q8H [facility] Last Admin: 07/02/18 14:00 Dose: 40 mg Montelukast Sodium (Singulair) 10 mg PO [facility] Last Admin: 07/01/18 21:40 Dose: 10 mg Morphine Sulfate (Morphine) 2 mg IVP Q4 PRN PRN Reason: Pain, severe (8-10) Last Admin: 07/02/18 11:06 Dose: 2 mg Pantoprazole Sodium (Protonix Ec Tab) 40 mg PO BID [facility] Last Admin: 07/02/18 11:00 Dose: 40 mg Quetiapine Fumarate (Seroquel Xr) 400 mg PO Q12 [facility] Last Admin: 07/02/18 10:58 Dose: 400 mg Sertraline HCl (Zoloft) 100 mg PO BID [facility] Last Admin: 07/02/18 10:58 Dose: 100 mg Trazodone HCl (Desyrel) 150 mg PO [facility] Last Admin: 07/01/18 21:40 Dose: 150 mg - Labs Labs: 07/02/18 08:10 07/02/18 08:10 PT 11.3 SECONDS (9.7-12.2) 06/26/18 21:07 INR 1.0 06/26/18 21:07 APTT 41.0 SECONDS (21-34) H 06/26/18 21:07 - Head Exam Head Exam: ATRAUMATIC, NORMOCEPHALIC - ENT Exam ENT Exam: Mucous Membranes Moist - Respiratory Exam Respiratory Exam: Rhonchi, Wheezes - Cardiovascular Exam Cardiovascular Exam: REGULAR RHYTHM - GI/Abdominal Exam GI & Abdominal Exam: Soft, Normal Bowel Sounds (Serous so there is) - Extremities Exam Extremities Exam: Normal Inspection - Neurological Exam Neurological Exam: Alert Assessment and Plan (1) COPD exacerbation Assessment & Plan: Persistent cough Continue with the steroids, nebulizer treatment and antibiotics As Status: Acute (2) Pneumonia Status: Acute (3) Tracheobronchitis Status: Acute
--- NOTE | 2018-07-02 19:45 | CP.PCM.PN ---
Subjective - Date & Time of Evaluation Date of Evaluation: 07/02/18 Time of Evaluation: 07:20 - Subjective Subjective: dict Objective - Vital Signs/Intake and Output Vital Signs (last 24 hours): Temp Pulse Resp BP Pulse Ox 98.5 F 86 20 155/81 H 98 07/02/18 15:00 07/02/18 18:00 07/02/18 15:00 07/02/18 15:00 07/02/18 15:00 - Medications Medications: Current Medications Acetaminophen (Tylenol 325mg Tab) 650 mg PO Q6H PRN PRN Reason: Pain, Mild (1-3) Last Admin: 06/27/18 02:02 Dose: 650 mg Albuterol/Ipratropium (Duoneb 3 Mg/0.5 Mg (3 Ml) Ud) 3 ml INH RQ4 [facility] Last Admin: 07/02/18 19:38 Dose: 3 ml Enoxaparin Sodium (Lovenox) 40 mg SC DAILY [facility] Last Admin: 07/02/18 11:00 Dose: 40 mg Gabapentin (Neurontin) 800 mg PO TID [facility] Last Admin: 07/02/18 17:17 Dose: 800 mg Guaifenesin (Robitussin) 200 mg PO Q4H PRN PRN Reason: Cough and congestion Last Admin: 07/02/18 14:00 Dose: 200 mg Guaifenesin (Mucinex La) 600 mg PO Q12H [facility] Last Admin: 07/02/18 11:00 Dose: 600 mg Aztreonam 2 gm/ Sodium (Chloride) 100 mls @ 100 mls/hr IVPB Q8H [facility]; Protocol Stop: 07/03/18 13:31 Last Admin: 07/02/18 13:11 Dose: 100 mls/hr Vancomycin/Sodium Chloride (Vancomycin 1 Gm/Ns 200 Ml) 1 gm in 200 mls @ 133.333 mls/hr IVPB Q12H [facility]; Protocol Stop: 07/03/18 16:01 Last Admin: 07/02/18 04:00 Dose: Not Given Insulin Glargine (Lantus) 17 unit SC HS [facility] Last Admin: 07/01/18 21:40 Dose: 17 unit Insulin Human Regular (Novolin R) 0 unit SC ACHS [facility]; Protocol Last Admin: 07/02/18 17:18 Dose: 8 units Lorazepam (Ativan) 2 mg PO Q12H PRN PRN Reason: Anxiety Methylprednisolone (Solu-Medrol) 40 mg IV Q8H [facility] Last Admin: 07/02/18 14:00 Dose: 40 mg Montelukast Sodium (Singulair) 10 mg PO HS [facility] Last Admin: 07/01/18 21:40 Dose: 10 mg Morphine Sulfate (Morphine) 2 mg IVP Q4 PRN PRN Reason: Pain, severe (8-10) Last Admin: 07/02/18 17:19 Dose: 2 mg Pantoprazole Sodium (Protonix Ec Tab) 40 mg PO BID [facility] Last Admin: 07/02/18 17:17 Dose: 40 mg Quetiapine Fumarate (Seroquel Xr) 400 mg PO Q12 [facility] Last Admin: 07/02/18 10:58 Dose: 400 mg Sertraline HCl (Zoloft) 100 mg PO BID [facility] Last Admin: 07/02/18 17:17 Dose: 100 mg Trazodone HCl (Desyrel) 150 mg PO [facility] Last Admin: 07/01/18 21:40 Dose: 150 mg - Labs Labs: 07/02/18 08:10 07/02/18 08:10 PT 11.3 SECONDS (9.7-12.2) 06/26/18 21:07 INR 1.0 06/26/18 21:07 APTT 41.0 SECONDS (21-34) H 06/26/18 21:07
[2018-07-02] MEDS: (Lantus) Insulin Glargine, Recombinant SC SCH (22:01)
--- NOTE | 2018-07-03 03:24 | PN ---
DATE: 07/02/2018 SUBJECTIVE: The patient is afebrile, less short of breath, less cough, less wheezing. Decreased thick secretion. No nausea or vomiting. She is tolerating diet. She is off antibiotics. We are observing her temperature for 24 hours. PHYSICAL EXAMINATION: VITAL SIGNS: Blood pressure 151/81, pulse 83, respiratory rate 20, temperature 98.5. LUNGS: Bilateral decreased air entry. Positive rhonchi. CARDIOVASCULAR SYSTEM: S1 and S2, regular. ABDOMEN: Soft and nontender. Bowel sounds are positive. ASSESSMENT: 1. Pneumonia. 2. Bronchial asthma exacerbation. 3. Hypertension. 4. Diabetes. PLAN: Taper steroids. Still back antibiotics. Monitor respiratory status. Monitor temperature. Ad Khan MD
[2018-07-03] MEDS: Aztreonam 2 GM in Sodium Chloride 0.9% 100 ML IVPB SCH ×2 (04:33→12:55)
[2018-07-03] MEDS: Albuterol-Ipratrop 3 mg / 0.5 (3 ml) UD INH SCH ×6 (04:35→19:39)
[2018-07-03] MEDS: (Novolin R) Insulin Human Regular 100 units/ml vial SC SCH ×4 (08:43→21:51)
[2018-07-03] MEDS: MethylPREDNISolone 40 mg Vial IV SCH (09:42)
[2018-07-03] MEDS: Pantoprazole 20 mg EC Tab PO SCH ×2 (09:42→17:16)
[2018-07-03] MEDS: QUEtiapine 200 mg XR Tab PO SCH ×2 (09:43→21:52)
[2018-07-03] MEDS: Enoxaparin 40 mg Syringe SC SCH (09:43)
[2018-07-03] MEDS: guaiFENesin 600 mg ER Tab PO SCH ×2 (09:56→21:52)
--- NOTE | 2018-07-03 16:17 | CP.PCM.PN ---
Subjective - Date & Time of Evaluation Date of Evaluation: 07/03/18 Time of Evaluation: 11:00 - Subjective Subjective: Patient seen and examined Lying comfortably in no distress Afebrile Less cough and shortness of breath Continue antibiotics Taper steroids Objective - Vital Signs/Intake and Output Vital Signs (last 24 hours): Temp Pulse Resp BP Pulse Ox 97.4 F L 78 20 130/79 96 07/03/18 15:00 07/03/18 15:00 07/03/18 15:00 07/03/18 15:00 07/03/18 15:00 Intake and Output: 07/03/18 07/03/18 06:59 18:59 Intake Total 100 580 Balance 100 580 - Medications Medications: Current Medications Acetaminophen (Tylenol 325mg Tab) 650 mg PO Q6H PRN PRN Reason: Pain, Mild (1-3) Last Admin: 06/27/18 02:02 Dose: 650 mg Albuterol/Ipratropium (Duoneb 3 Mg/0.5 Mg (3 Ml) Ud) 3 ml INH RQ4 [facility] Last Admin: 07/03/18 15:52 Dose: 3 ml Enoxaparin Sodium (Lovenox) 40 mg SC DAILY [facility] Last Admin: 07/03/18 09:43 Dose: 40 mg Gabapentin (Neurontin) 800 mg PO TID [facility] Last Admin: 07/03/18 13:54 Dose: 800 mg Guaifenesin (Robitussin) 200 mg PO Q4H PRN PRN Reason: Cough and congestion Last Admin: 07/02/18 14:00 Dose: 200 mg Guaifenesin (Mucinex La) 600 mg PO Q12H [facility] Last Admin: 07/03/18 09:56 Dose: 600 mg Insulin Glargine (Lantus) 17 unit SC [facility] Last Admin: 07/02/18 22:01 Dose: 17 unit Insulin Human Regular (Novolin R) 0 unit SC [facility]; Protocol Last Admin: 07/03/18 12:54 Dose: 2 units Lorazepam (Ativan) 2 mg PO Q12H PRN PRN Reason: Anxiety Methylprednisolone (Solu-Medrol) 40 mg IV DAILY [facility] Last Admin: 07/03/18 09:42 Dose: 40 mg Montelukast Sodium (Singulair) 10 mg PO [facility] Last Admin: 07/02/18 22:01 Dose: 10 mg Morphine Sulfate (Morphine) 2 mg IVP Q4 PRN PRN Reason: Pain, severe (8-10) Last Admin: 07/03/18 14:23 Dose: 2 mg Pantoprazole Sodium (Protonix Ec Tab) 40 mg PO BID [facility] Last Admin: 07/03/18 09:42 Dose: 40 mg Quetiapine Fumarate (Seroquel Xr) 400 mg PO Q12 [facility] Last Admin: 07/03/18 09:43 Dose: 400 mg Sertraline HCl (Zoloft) 100 mg PO BID [facility] Last Admin: 07/03/18 09:42 Dose: 100 mg Trazodone HCl (Desyrel) 150 mg PO HS [facility] Last Admin: 07/02/18 22:01 Dose: 150 mg - Labs Labs: 07/02/18 08:10 07/02/18 08:10 PT 11.3 SECONDS (9.7-12.2) 06/26/18 21:07 INR 1.0 06/26/18 21:07 APTT 41.0 SECONDS (21-34) H 06/26/18 21:07 - Head Exam Head Exam: ATRAUMATIC, NORMOCEPHALIC - ENT Exam ENT Exam: Mucous Membranes Moist - Neck Exam Neck Exam: Normal Inspection - Respiratory Exam Respiratory Exam: Decreased Breath Sounds, Rhonchi, Wheezes - Cardiovascular Exam Cardiovascular Exam: REGULAR RHYTHM - GI/Abdominal Exam GI & Abdominal Exam: Soft Assessment and Plan (1) COPD exacerbation Status: Acute (2) Pneumonia Status: Acute (3) Tracheobronchitis Status: Acute
[2018-07-03] MEDS: Vancomycin 1 gm/NS 200 ml 1 GM/200 ML BAG IVPB SCH (16:31)
[2018-07-03] MEDS: guaiFENesin 200 mg/10 ml Syrup UD PO PRN (17:22)
[2018-07-03] MEDS: (Lantus) Insulin Glargine, Recombinant SC SCH (21:51)
[2018-07-04] MEDS: Albuterol-Ipratrop 3 mg / 0.5 (3 ml) UD INH SCH ×4 (00:02→11:27)
--- NOTE | 2018-07-04 02:21 | PN ---
DATE: 07/03/2018 SUBJECTIVE: The patient is less short of breath, less cough, less wheezing. No fever, no chills. She appears comfortable. No nausea, vomiting. Appetite has improved. Blood sugars are down. Steroids are being tapered. PHYSICAL EXAMINATION: VITAL SIGNS: Blood pressure 130/79, pulse 78, respiratory rate 20, temperature 97.4. LUNGS: Bilateral decreased air entry, positive scattered rhonchi. CARDIOVASCULAR SYSTEM: S1, S2. Regular. ABDOMEN: Soft, nontender. Bowel sound are positive. ASSESSMENT: 1. Pneumonia. 2. Acute exacerbation of bronchial asthma. This bronchial asthma exacerbation was precipitated by pneumonia. 3. Hypertension. 4. Type 2 diabetes. 5. Morbid obesity. PLAN: Taper steroids, DC antibiotics. Discharge the patient. Ad Khan MD
--- NOTE | 2018-07-04 06:12 | CP.PCM.DIS ---
Provider - Provider Date of Admission: 06/28/18 15:31 Attending physician: Ad Khan MD Consults: 06/27/18 00:22 Pulmonology Consult Routine Comment: Consulting Provider: Rodo Rosado Consulting Physician: Rodo Rosado Reason for Consult: asthma Time Spent in preparation of Discharge (in minutes): 30 Hospital Course - Lab Results Lab Results: Micro Results 06/26/18 20:47 Blood Blood Culture - Final NO GROWTH AFTER 5 DAYS 06/26/18 20:47 Blood Gram Stain - Final TEST NOT PERFORMED 06/26/18 21:20 Blood Blood Culture - Final NO GROWTH AFTER 5 DAYS 06/26/18 21:20 Blood Gram Stain - Final TEST NOT PERFORMED Most Recent Lab Values WBC 10.9 K/uL (4.8-10.8) H 07/02/18 08:10 RBC 4.44 Mil/uL (3.80-5.20) 07/02/18 08:10 Hgb 12.0 g/dL (11.0-16.0) 07/02/18 08:10 Hct 34.6 % (34.0-47.0) 07/02/18 08:10 MCV 78.1 fL (81.0-99.0) L 07/02/18 08:10 MCH 26.9 pg (27.0-31.0) L 07/02/18 08:10 MCHC 34.5 g/dL (33.0-37.0) 07/02/18 08:10 RDW 15.5 % (11.5-14.5) H 07/02/18 08:10 Plt Count 165 K/uL (130-400) 07/02/18 08:10 MPV 8.3 fL (7.2-11.7) 07/02/18 08:10 Neut % (Auto) 77.2 % (50.0-75.0) H 07/02/18 08:10 Lymph % (Auto) 15.6 % (20.0-40.0) L 07/02/18 08:10 [place] % (Auto) 6.5 % (0.0-10.0) 07/02/18 08:10 Eos % (Auto) 0.5 % (0.0-4.0) 07/02/18 08:10 Baso % (Auto) 0.2 % (0.0-2.0) 07/02/18 08:10 Neut # (Auto) 8.4 K/uL (1.8-7.0) H 07/02/18 08:10 Lymph # (Auto) 1.7 K/uL (1.0-4.3) 07/02/18 08:10 [place] # (Auto) 0.7 K/uL (0.0-0.8) 07/02/18 08:10 Eos # (Auto) 0.1 K/uL (0.0-0.7) 07/02/18 08:10 Baso # (Auto) 0.0 K/uL (0.0-0.2) 07/02/18 08:10 PT 11.3 SECONDS (9.7-12.2) 06/26/18 21:07 INR 1.0 06/26/18 21:07 APTT 41.0 SECONDS (21-34) H 06/26/18 21:07 Puncture Site Rbrachial 06/26/18 20:35 pCO2 44 mm/Hg (35-45) 06/26/18 20:35 pO2 88 mm/Hg (80-100) 06/26/18 20:35 HCO3 24.3 mmol/L (21-28) 06/26/18 20:35 ABG pH 7.36 (7.35-7.45) 06/26/18 20:35 ABG Total CO2 26.3 mmol/L (22-28) 06/26/18 20:35 ABG O2 Saturation 97.5 % (95-98) 06/26/18 20:35 ABG Base Excess -0.8 mmol/L (-2.0-3.0) 06/26/18 20:35 Rob Test Neg 06/26/18 20:35 ABG Potassium 3.8 mmol/L (3.6-5.2) 06/26/18 20:35 A-a O2 Difference 71.0 mm/Hg 06/26/18 20:35 Respiratory Index 0.8 06/26/18 20:35 Sodium 142.0 mmol/l (132-148) 06/26/18 20:35 Chloride 110.0 mmol/L (98-107) H 06/26/18 20:35 Glucose 150 mg/dl (65-105) H 06/26/18 20:35 Lactate 1.2 mmol/L (0.7-2.1) 06/26/18 20:35 Vent Mode Trach collar 06/26/18 20:35 FiO2 30.0 % 06/26/18 20:35 Sodium 141 mmol/L (132-148) 07/02/18 08:10 Potassium 4.4 mmol/L (3.6-5.2) 07/02/18 08:10 Chloride 100 mmol/L (98-107) 07/02/18 08:10 Carbon Dioxide 35 mmol/L (22-30) H 07/02/18 08:10 Anion Gap 10 (10-20) 07/02/18 08:10 BUN 24 mg/dL (7-17) H 07/02/18 08:10 Creatinine 1.0 mg/dL (0.7-1.2) 07/02/18 08:10 Est GFR ( Amer) > 60 07/02/18 08:10 Est GFR (Non-Af Amer) 57 07/02/18 08:10 POC Glucose (mg/dL) 301 mg/dL (65-110) H 07/03/18 21:25 Random Glucose 194 mg/dL (65-105) H 07/02/18 08:10 Calcium 9.5 mg/dl (8.6-10.4) 07/02/18 08:10 Magnesium 1.8 mg/dL (1.6-2.3) 06/26/18 21:07 Total Bilirubin 0.4 mg/dL (0.2-1.3) 06/26/18 21:07 AST 24 U/L (14-36) 06/26/18 21:07 ALT 19 U/L (9-52) 06/26/18 21:07 Alkaline Phosphatase 152 U/L (38-126) H 06/26/18 21:07 Troponin I < 0.0120 ng/mL (0.00-0.120) 06/26/18 21:07 NT-Pro-B Natriuret Pep 131 pg/mL (0-900) 06/26/18 21:07 Total Protein 8.7 g/dL (6.3-8.3) H 06/26/18 21:07 Albumin 4.3 g/dL (3.5-5.0) 06/26/18 21:07 Globulin 4.4 gm/dL (2.2-3.9) H 06/26/18 21:07 Albumin/Globulin Ratio 1.0 (1.0-2.1) 06/26/18 21:07 Arterial Blood Potassium 3.8 mmol/L (3.6-5.2) 06/26/18 20:35 Urine Color Yellow (YELLOW) 06/28/18 14:41 Urine Clarity Clear (Clear) 06/28/18 14:41 Urine pH 5.0 (5.0-8.0) 06/28/18 14:41 Ur Specific [place] 1.014 (1.003-1.030) 06/28/18 14:41 Urine Protein Negative mg/dL (NEGATIVE) 06/28/18 14:41 Urine Glucose (UA) 3+ mg/dL (Normal) H 06/28/18 14:41 Urine Ketones Negative mg/dL (NEGATIVE) 06/28/18 14:41 Urine Blood Negative (NEGATIVE) 06/28/18 14:41 Urine Nitrate Negative (NEGATIVE) 06/28/18 14:41 Urine Bilirubin Negative (NEGATIVE) 06/28/18 14:41 Urine Urobilinogen Normal mg/dL (0.2-1.0) 06/28/18 14:41 Ur Leukocyte Esterase Neg Brian/uL (Negative) 06/28/18 14:41 Urine WBC (Auto) 1 /hpf (0-5) 06/28/18 14:41 Ur Squamous Epith Cells < 1 /hpf (0-5) 06/28/18 14:41 Urine Bacteria Rare (<OCC) 06/28/18 14:41 Vancomycin Trough 12.4 ug/mL (5.0-10.0) H 07/02/18 08:10 Discharge Exam - Head Exam Head Exam: ATRAUMATIC, NORMOCEPHALIC Discharge Plan - Follow Up Plan Condition: GUARDED Disposition: HOME/ ROUTINE Instructions: Pneumonia, Adult (DC), Exacerbation of COPD (DC) Referrals: Rodo Rosado MD [Staff Provider] - Ad Khan MD [Staff Provider] -
[2018-07-04 07:55] VITALS: RESP 20; O2SAT 97
[2018-07-04] MEDS: (Novolin R) Insulin Human Regular 100 units/ml vial SC SCH ×3 (08:32→16:46)
[2018-07-04 08:35] LABS: HEMOGLOBIN 11.7 g/dL (11.0-16.0); MEAN CELL VOLUME 78.1 fL (81.0-99.0); MEAN CORPUSCULAR HEMOGLOBIN 25.6 pg (27.0-31.0); MEAN CORPUSCULAR HGB CONC 32.8 g/dL (33.0-37.0); MEAN PLATELET VOLUME 8.2 fL (7.2-11.7); RBC 4.58 Mil/uL (3.80-5.20); RED CELL DISTRIBUTION WIDTH 15.8 % (11.5-14.5); WHITE BLOOD COUNT 11.4 K/uL (4.8-10.8)
[2018-07-04 08:51] LABS: BLOOD UREA NITROGEN 26 mg/dL (7-17); GFR NON-AFRICAN AMERICAN > 60
[2018-07-04] MEDS: MethylPREDNISolone 40 mg Vial IV SCH (10:25)
[2018-07-04] MEDS: guaiFENesin 600 mg ER Tab PO SCH (10:26)
[2018-07-04] MEDS: Pantoprazole 20 mg EC Tab PO SCH (10:26)
[2018-07-04] MEDS: Enoxaparin 40 mg Syringe SC SCH (10:26)
[2018-07-04] MEDS: QUEtiapine 200 mg XR Tab PO SCH (10:27)
[2018-07-04] MEDS: guaiFENesin 200 mg/10 ml Syrup UD PO PRN (10:45)
[2018-07-04 15:32] VITALS: BP 129/70; PULSE 78; TEMP 97.6
--- NOTE | 2018-07-05 03:51 | DS ---
DISCHARGE DIAGNOSES: 1. Pneumonia. 2. Bronchial asthma exacerbation. 3. Diabetes. 4. Hypertension. HOSPITAL COURSE: This is a 62-year-old female with history of tracheostomy and she has frequent hospitalization with pneumonia and acute bronchitis. The patient came in because of cough and congestion, shortness of breath, found to have pneumonia. She is receiving vancomycin and Azactam and she did well. Her new chest x-ray shows improvement of infiltrate and she is for discharge. CONDITION UPON DISCHARGE: Stable. PHYSICAL EXAMINATION: VITAL SIGNS: Blood pressure 103/65, pulse 67, respiratory rate 18, temperature 98.3. LUNGS: Decreased air entry. CARDIOVASCULAR SYSTEM: S1, S2 regular. ABDOMEN: Soft. ASSESSMENT AND PLAN: Discharged. The patient with pneumonia. Ad Khan MD
== END 2018-07-04 16:55 | disposition home or self-care (01) | DRG 89 ==
LOC: C.ER 19:37 → C.9E 21:41 → C.5S 22:30 → OBSVTOIN 06-28 15:31 → C.5S 06-30 22:04
PROVIDERS: ADMIT Internal Medicine; ATTEND Internal Medicine
DX: J18.9 Pneumonia, unspecified organism (principal); I11.0 Hypertensive heart disease with heart failure; I50.9 Heart failure, unspecified; J43.9 Emphysema, unspecified; F31.9 Bipolar disorder, unspecified; J45.901 Unspecified asthma with (acute) exacerbation; G47.30 Sleep apnea, unspecified; E66.01 Morbid (severe) obesity due to excess calories; E11.9 Type 2 diabetes mellitus without complications